=== PATIENT | male | born 1980 | race Caucasian/White ===

== ENCOUNTER 2017-07-25 16:26 | Emergency (ER) | payer MEDICAID, SELFPAY ==
[2017-07-25 16:27] VITALS: BP 140/84; PULSE 87; RESP 16; TEMP 37.2; O2SAT 99; BMI 38.6
--- NOTE | 2017-07-25 16:38 | CT_ITS ---
CT Head or Brain W/O Contrast INDICATION: HEADACHE. HX OF CEREBRAL HEMATOMA COMPARISON: June 27, 2017 TECHNIQUE: Noncontrast axial CT examination of the brain. Radiation dose optimization applied. FINDINGS: The ventricular system is normal in size and symmetric. The cortical sulci, sylvian fissures, and basal cisterns are well seen. The pantoja-white matter junction is distinct. There is no evidence of acute intracranial hemorrhage, mass effect, midline shift, or abnormal extra-axial collection. The calvarium is intact and the visualized paranasal sinuses and mastoid air cells are clear. CT/Brain/Head without Contrast IMPRESSION: No evidence of acute intracranial abnormality by noncontrast CT. at 2045 Reported and signed by: Vivienne Crouch MD Electronically Signed: Vivienne Crouch MD at 19:43 EST Tel , Service support ,
--- NOTE | 2017-07-25 16:39 | ED.VISSUMM ---
- ER Visit Summary Date of Service: 07/25/17 Chief Complaint: Headache History of Present Illness: The patient is a 37 M presenting with headache which started this morning. Headache was gradual in onset and worsened throughout the day. He tried Tylenol at home with some relief. He has a history of headaches. He states he had a subdural hematoma in 2003 which did not require surgical intervention. Since that time he has had a seizure disorder. No seizures today. Denies fever or neck pain. Denies vision changes. Denies other complaints. Physical Examination: Vitals are stable. Patient is afebrile. Alert no acute distress. HEENT exam is unremarkable. Neck is supple. No meningismus Lungs are clear and equal bilaterally. Heart is regular rate and rhythm. Abdomen is soft nontender nondistended. Extremities are unremarkable. Skin is warm and dry. No focal neurologic deficit. Remainder of exam is unremarkable. Emergency Department Course and Treatment: Patient is given Compazine, Benadryl. CT head shows no acute process. Patient states following medications his headache has completely resolved. He is advised to follow-up with his primary care physician. Advised return to ED for worsening complaints. Disposition: Discharge home Impression: Headache, resolved This note was generated with [employer] dictation software. It may contain incorrect words, spelling, and punctuation that were not noted in review of the chart prior to signing ED Disposition - Plan for ED Patient: Chief Complaint: Headache Referrals: Leydi Delong MD [Primary Care Provider] -
[2017-07-25] MEDS: DiphenhydrAMINE 50 MG/ML Syringe 25 MG IV (16:48)
[2017-07-25] MEDS: proCHLORPERazine 10 MG/2 ML Vial IV (16:48)
[2017-07-25 18:36] VITALS: BP 138/73; PULSE 51; RESP 16
--- NOTE | 2017-07-25 19:21 | ED.DEP ---
ED Disposition - Plan for ED Patient: Chief Complaint: Headache Instructions: ED Cephalgia Unspecified Referrals: Leydi Delong MD [Primary Care Provider] -
[2017-07-25 19:29] VITALS: PULSE 66; RESP 16
== END 2017-07-25 19:29 | disposition home or self-care (01) ==
PROVIDERS: Emergency Provider Emergency Medicine; Family Provider Internal Medicine; PCP Internal Medicine
DX: R51 Headache (principal); G40.909 Epilepsy, unspecified, not intractable, without status epilepticus; Z87.898 Personal history of other specified conditions; Z90.89 Acquired absence of other organs; Z79.899 Other long term (current) drug therapy; Z72.0 Tobacco use
CPT/HCPCS: 70450; 96374; 96375; 99285; A4216

== ENCOUNTER 2017-08-21 21:31 | Emergency (ER) | payer MEDICAID, SELFPAY ==
[2017-08-21 21:32] VITALS: BP 163/100; PULSE 97; RESP 20; TEMP 36.7; O2SAT 100; BMI 37.6
[2017-08-21 21:55] VITALS: BP 149/100
--- NOTE | 2017-08-21 21:55 | RAD_ITS ---
STUDY: X-RAY - LEFT ELBOW REASON FOR EXAM: Male, 37 years old. Pain TECHNIQUE: 3 view(s) of the elbow. COMPARISON: None. FINDINGS: Normal visualized humerus, radius and ulna. Normal radiocapitellar and ulnotrochlear articulations. The soft tissue structures are unremarkable. RAD/Elbow min 3 Views IMPRESSION: Normal x-ray examination of the elbow. Electronically Signed: Jeramy Rush MD at 22:12 EST Tel , Service support ,
--- NOTE | 2017-08-21 22:13 | ED.DCSUM_ITS ---
- ER Visit Summary Date of Service: 08/21/17 Chief Complaint: [] Left lateral elbow pain for 2 hours after he woke from sleep History of Present Illness: The patient is a 37 M [] sleep feeling fine he woke with pain over the left lateral elbow he is tender on exam over the left lateral epicondyle he had did not injure his extremity anyway prior to sleeping he had no symptoms. 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 but he does not believe he injured his elbow in any way he is right-hand dominant and this is left elbow Have a history of seizure disorder he did not have a seizure per patient and family Physical Examination: [] Points directly to the left lateral upper condyle complaining of pain here this area is tender to palpation he is able to flex and extend the elbow pronate and supinate hand function is normal wrist function is normal pulses are symmetric extremity hand functions normal, sensation is normal strong radial pulse, there is nothing in the brachial fossa and the left medial elbow is unremarkable the olecranon is unremarkable Test Results: [] Emergency Department Course and Treatment: [] X-rays obtained that is unremarkable per radiology, explained the above the patient I explained that there is no signs of infection fracture or anything acute or life-threatening he will need follow-up he will placed in a sling ice to the area Naprosyn is referred to Dr. Riley Davis for follow-up Treatment Plan: [] Disposition: [] Home stable Impression: [] Left lateral elbow pain etiology unclear This note was generated with [employer] dictation software. It may contain incorrect words, spelling, and punctuation that were not noted in review of the chart prior to signing ED Disposition - Plan for ED Patient: Chief Complaint: Upper Extremity Injury Instructions: ED Sprain Elbow Prescriptions: Naproxen [Naprosyn] 500 mg PO BID PRN #20 tab Referrals: Leydi Delong MD [Primary Care Provider] -
[2017-08-21] MEDS: Ketorolac 60 MG/2 ML Vial IM (23:10)
[2017-08-21 23:35] VITALS: BP 149/100; PULSE 89; RESP 16; O2SAT 97
== END 2017-08-21 23:36 | disposition home or self-care (01) ==
LOC: ED 22:13
PROVIDERS: Emergency Provider Emergency Medicine; Family Provider Internal Medicine; PCP Internal Medicine
DX: M25.522 Pain in left elbow (principal); G40.909 Epilepsy, unspecified, not intractable, without status epilepticus; Z79.899 Other long term (current) drug therapy
CPT/HCPCS: 73080; 96372; 99283

== ENCOUNTER 2017-09-02 01:01 | Emergency (ER) | payer MEDICAID, SELFPAY ==
[2017-09-02 01:03] VITALS: BP 162/90; PULSE 96; RESP 17; TEMP 36.9; O2SAT 97; BMI 40.1
[2017-09-02] MEDS: Ketorolac 30 MG/ML Syringe IV (01:44)
[2017-09-02] MEDS: 0.9% Normal Saline 1,000 ML 999 ML IV (01:44)
[2017-09-02] MEDS: proCHLORPERazine 10 MG/2 ML Vial IV (01:45)
[2017-09-02] MEDS: DiphenhydrAMINE 50 MG/ML Syringe 25 MG IV (01:46)
--- NOTE | 2017-09-02 02:48 | ED.DCSUM_ITS ---
- ER Visit Summary Date of Service: 09/02/17 Chief Complaint: Headache History of Present Illness: The patient is a 37 M who presents with a headache. It began about 2-1/2 hours ago. It gradually worsened over the course of 1 hour. He has a history of prior similar headaches. He complains of pain along his neck to the base of the skull and headache in the occipital region. He describes this as pressure-like. No history of recent fall trauma or injury. He does have a history of a prior subdural hematoma which did not require any surgical intervention. Physical Examination: Afebrile vitals are stable No focal or lateralizing neurological deficits, GCS of 15 Heart regular rate and rhythm Lungs clear Abdomen soft Alert and oriented Patient does have some tenderness at the base of the occiput Neck is supple without meningismus Test Results: Not indicated Emergency Department Course and Treatment: Patient was treated with IV fluids Toradol Compazine and Benadryl. On reevaluation he is resting comfortably and reports significant improvement of his symptoms and would like to go home. He understands return for new or worsening symptoms. He was instructed on specific signs and symptoms to monitor for. He was discharged. Treatment Plan: [] Disposition: Discharge Impression: Headache This note was generated with [employer] dictation software. It may contain incorrect words, spelling, and punctuation that were not noted in review of the chart prior to signing ED Disposition - Plan for ED Patient: Chief Complaint: Headache Referrals: Leydi Delong MD [Primary Care Provider] -
--- NOTE | 2017-09-02 02:51 | ED.DEP ---
ED Disposition - Plan for ED Patient: Chief Complaint: Headache Instructions: ED Cephalgia Unspecified Referrals: Leydi Delong MD [Primary Care Provider] -
[2017-09-02 03:15] VITALS: BP 124/53; PULSE 74; RESP 16; O2SAT 93
== END 2017-09-02 03:15 | disposition home or self-care (01) ==
PROVIDERS: Emergency Provider Emergency Medicine; Family Provider Internal Medicine; PCP Internal Medicine
DX: R51 Headache (principal); G40.909 Epilepsy, unspecified, not intractable, without status epilepticus; Z87.898 Personal history of other specified conditions; Z79.899 Other long term (current) drug therapy; Z72.0 Tobacco use
CPT/HCPCS: 96361; 96374; 96375; 99285; J7030; A4216

== ENCOUNTER 2017-12-22 21:28 | Emergency (ER) | payer SELFPAY ==
[2017-12-22 21:29] VITALS: BP 162/89; PULSE 107; RESP 20; TEMP 37.4; O2SAT 98; BMI 34.0
--- NOTE | 2017-12-22 21:41 | ED.DCSUM_ITS ---
- ER Visit Summary Date of Service: 12/22/17 Chief Complaint: Head injury History of Present Illness: The patient is a [address] Delong. He reports that he was changing brakes and the [place] came down hit him in the forehead. Did not have a loss of consciousness. He denies any neck pain. He reports that his pain was 9 out of 10 in severity. She taken ibuprofen without relief. He denies any other injuries or complaints Physical Examination: Vitals: Stable. Afebrile. Head: I do not see any evidence of trauma to his forehead where he points that the location of the trauma was. There is no soft tissue swelling. There is no contusion. Neck: No vertebral tenderness. Full ROM without difficulty. Cleared by NEXUS criteria. Back: No vertebral tenderness. General: A&O x 3. NAD. Cardiovascular exam: Regular rate and rhythm, no murmur, rub or gallop. Respiratory exam: Chest nontender. No crepitus. Clear to auscultation bilaterally. No wheezes or stridor. Abdominal exam: Soft, nontender, nondistended, normal bowel sounds. No pain in RUQ or LUQ specifically. No peritoneal signs. Extremity: Atraumatic. No pain with range of motion. Emergency Department Course and Treatment: Patient was treated with Tylenol. There is no indication for a CT scan. Treatment Plan: Instructed to follow-up with his primary care physician 1 week if not improving. Disposition: To home in improved and stable condition. Impression: 1. Closed head injury. This note was generated with [employer] dictation software. It may contain incorrect words, spelling, and punctuation that were not noted in review of the chart prior to signing ED Disposition - Plan for ED Patient: Disposition: Home or Assisted Living Chief Complaint: Head Injury Instructions: ED Concussion Referrals: Leydi Delong MD [Primary Care Provider] - 1 Week
[2017-12-22] MEDS: Acetaminophen 325 MG Tablet 1000 MG PO (21:46)
[2017-12-22 21:49] VITALS: RESP 20
--- NOTE | 2017-12-22 21:59 | NURSING ---
CUT ONE OF TABLETS TO THE CORRECT DOSAGE. PT GOT WORK NOTE. UNDERSTANDS D/C INSTRUCTIONS. NO FURTHER QUESTIONS.
== END 2017-12-22 22:00 | disposition home or self-care (01) ==
LOC: ED 21:56
PROVIDERS: Emergency Provider Emergency Medicine; Family Provider Internal Medicine; PCP Internal Medicine
DX: S09.90XA Unspecified injury of head, initial encounter (principal); W22.8XXA Striking against or struck by other objects, initial encounter; Y93.89 Activity, other specified; Y92.9 Unspecified place or not applicable; G40.909 Epilepsy, unspecified, not intractable, without status epilepticus; Z72.0 Tobacco use
CPT/HCPCS: 99282

== ENCOUNTER 2018-03-02 01:41 | Emergency (ER) | payer SELFPAY ==
[2018-03-02 01:43] VITALS: BP 136/88; BP 149/91; PULSE 93; PULSE 94; RESP 17; RESP 18; TEMP 36.5; O2SAT 97; O2SAT 98; BMI 41.5
--- NOTE | 2018-03-02 01:55 | CT_ITS ---
STUDY: CT BRAIN WITHOUT CONTRAST REASON FOR EXAM: Male, 38 years old. Seizure RADIATION DOSAGE (If Supplied By Facility): CTDIvol = ( 44.99 ) mGy, DLP = ( 762.36 ) mGycm TECHNIQUE: Transaxial CT imaging of the brain was performed without administration of intravenous contrast material. Individualized dose optimization techniques were used for this CT. COMPARISON: None. FINDINGS: Normal soft tissue structures. Normal calvarium. Normal size ventricles and extra-axial spaces for the patient's age. Normal white matter tracts of the cerebral hemispheres. Normal basal ganglia and thalami. Normal brainstem. Normal cerebellum. There is no intracranial hemorrhage. There are no findings of an acute ischemic infarction. Normal visualized paranasal sinuses. CT/Brain/Head without Contrast IMPRESSION: Normal unenhanced CT scan of the brain. No acute findings in the brain Electronically Signed: Lopez Trujillo, at 2:36 EDT Tel , Service support ,
[2018-03-02 02:43] LABS: Carbamazepine (Tegretol) 12.7 ug/mL (4.0-12.0)
--- NOTE | 2018-03-02 02:45 | ED.RN ---
lab called to report carbamazepine 12.7. dr. agustin made aware.
--- NOTE | 2018-03-02 02:54 | ED.DCSUM_ITS ---
- ER Visit Summary Date of Service: 03/02/18 Chief Complaint: Seizure History of Present Illness: The patient is a 38 M with history of epilepsy. Patient reported had a seizure around 11 PM tonight. Family states it only lasted a short time, but then he did not breathe for 2 minutes. When asked specifically if he became cyanotic or ashen in color, they deny. Patient was complaining of posterior head pains they brought him in for evaluation. Patient is currently on Tegretol and Neurontin. His neurologist is at [facility]. Patient denies biting his tongue. Physical Examination: Vital signs unremarkable. Patient's lying in bed in no acute distress. Head neck examination unremarkable. Heart is regular rate and rhythm. Lung sounds are clear. Abdomen is soft nontender. Neuro exam reveals no focal deficits. Test Results: CT head is unremarkable. Tegretol level returns just above normal range at 12.7. Emergency Department Course and Treatment: On repeat evaluation patient is resting comfortably. He will call his neurologist tomorrow with an update. Treatment Plan: [] Disposition: Discharge Impression: Reported seizure with history of epilepsy This note was generated with [employer] dictation software. It may contain incorrect words, spelling, and punctuation that were not noted in review of the chart prior to signing ED Disposition - Plan for ED Patient: Disposition: Home or Assisted Living Chief Complaint: Seizure Instructions: ED Seizure Recurrent Referrals: Leydi Delong MD [Primary Care Provider] - Additional Instructions: Call your neurologist at [facility] tomorrow about your seizure. Your Tegretol level is 12.7
[2018-03-02 03:04] VITALS: BP 150/98; PULSE 88; RESP 16; O2SAT 97
--- NOTE | 2018-03-02 09:43 | CM.ED ---
Social Work Note Referral from Dr. Paz regarding questions about establishing advanced directives. States that pt's girlfriend, Hilda, was inquiring. Placed call to Hilda and left a requesting a return phone call to to discuss further and offer to assist in completion of advanced directives with pt and significant other if pt is agreeable. Deborah Bradford, CLIENT SOLUTIONS MANAGER, WAGE ADJUSTER
== END 2018-03-02 03:05 | disposition home or self-care (01) ==
PROVIDERS: Emergency Provider Emergency Medicine; Family Provider Internal Medicine; PCP Internal Medicine
DX: G40.909 Epilepsy, unspecified, not intractable, without status epilepticus (principal); Z79.899 Other long term (current) drug therapy; Z72.0 Tobacco use
CPT/HCPCS: 70450; 80156; 99284

== ENCOUNTER → 2018-04-01 08:41 | Outpatient (CLI) | payer OTHER, SELFPAY ==
--- NOTE | 2018-04-01 08:45 | RAD_ITS ---
STUDY: X-RAY - LEFT FOOT CLINICAL: Male, 38 years old. Fall at work yesterday. Pain. TECHNIQUE: 2 view(s) of the foot. COMPARISON: Left ankle, April 01, 2018. FINDINGS: Normal talus, calcaneus, and tarsal bones. Normal visualized subtalar, talonavicular, calcaneocuboid, tarsal and tarsometatarsal articulations. Normal metatarsi. Normal metatarsophalangeal joint of the great toe. Normal tibial and fibular sesamoid bones. Normal interphalangeal joint of the great toe. Normal phalanges of the great toe. Normal second through fifth metatarsophalangeal joints. Normal interphalangeal joints and phalanges of the lesser toes. The soft tissue structures are unremarkable. RAD/Foot 2 Views IMPRESSION: Normal x-ray examination of the foot. Electronically Signed: Heath Mariscal DO at 22:07 EDT Tel [phone], Service support ,
--- NOTE | 2018-04-01 08:45 | RAD_ITS ---
STUDY: X-RAY - LEFT ANKLE REASON FOR EXAM: Male, 38 years old. The work yesterday. TECHNIQUE: view(s) of the ankle. COMPARISON: None. FINDINGS: Normal visualized distal tibia and fibula. Normal medial and lateral malleoli. Normal tibiotalar articulation and ankle mortise. Normal visualized talus and calcaneus. The visualized subtalar, talonavicular, calcaneocuboid and tarsal articulations are normal. The soft tissue structures are unremarkable. RAD/Ankle min 3 Views IMPRESSION: Normal x-ray examination of the ankle. Electronically Signed: Heath Mariscal DO at 22:06 EDT Tel [phone], Service support ,
--- NOTE | 2018-04-01 08:45 | RAD_ITS ---
STUDY: X-RAY - LEFT KNEE REASON FOR EXAM: Male, 38 years old. Without work yesterday. Pain. TECHNIQUE: 3 view(s) of the knee. COMPARISON: None. FINDINGS: Normal visualized distal femur. Normal visualized proximal tibia and fibula. Normal proximal tibiofibular articulation. There is no acute fracture, dislocation or destructive osseous pathology. Normal medial femorotibial compartment. Normal lateral femorotibial compartment. Normal patellofemoral articulation. There is no demonstrated joint effusion. The soft tissue structures are unremarkable. RAD/Knee 3 Views IMPRESSION: Normal x-ray examination of the knee. Electronically Signed: Heath Mariscal DO at 22:06 EDT Tel [phone], Service support ,
== END ==
PROVIDERS: Family Provider Internal Medicine; PCP Internal Medicine; Referring Provider Physician Assistant; Visit Provider Physician Assistant
DX: S80.02XA Contusion of left knee, initial encounter (principal); S93.402A Sprain of unspecified ligament of left ankle, initial encounter; S93.602A Unspecified sprain of left foot, initial encounter
CPT/HCPCS: 73562; 73610; 73620

== ENCOUNTER → 2018-04-17 12:58 | Outpatient (CLI) | payer OTHER, SELFPAY ==
--- NOTE | 2018-04-17 13:45 | MRI_ITS ---
STUDY: MRI LEFT KNEE REASON FOR EXAM: Male, 38 years old. Left knee pain status post injury. TECHNIQUE: Standardized fat and water weighted pulse sequences were obtained in all 3 orthogonal planes. COMPARISON: Knee x-rays April 01, 2018. FINDINGS: Normal medial meniscus. There is mild thinning of articular cartilage of the medial femorotibial compartment (coronal series 6 images 13-18). Normal medial femoral condyle and tibial plateau. Normal medial collateral ligamentous complex (MCL). Normal distal semimembranosus, gracilis and semitendinosus tendons. Normal lateral meniscus. There is mild thinning of the articular cartilage of the lateral femorotibial compartment (coronal series 6 images 10-19). Normal lateral femoral condyle and tibial plateau. Normal proximal tibiofibular articulation. Normal lateral collateral (fibular) ligament. Normal popliteus tendon. Normal biceps femoris tendon. Normal anterior cruciate ligament (ACL). Normal posterior cruciate ligament (PCL). There is lateral subluxation of the patella with moderate thinning of the articular cartilage of the patellofemoral compartment with fissuring of the articular cartilage of the lateral patellar facet (axial series 2 images 3-9). Normal medial and lateral patellar retinaculum. Normal quadriceps tendon. Normal patellar tendon. Normal Hoffa's fat pad. There is a small joint effusion (axial series 2 image 6). The soft tissues are unremarkable. The otherwise visualized osseous structures are unremarkable. MRI/Lower Ext Joint Only (Routine) IMPRESSION: Mild thinning of the articular cartilage of the medial and lateral femorotibial compartments. Lateral subluxation of the patella with moderate thinning of the articular cartilage of the patellofemoral compartment. Fissuring of the articular cartilage of the lateral patellar facet. Small joint effusion. No meniscal or ligamentous pathology is present. Electronically Signed: Yaniv Aranda MD at 12:34 EST , Service support ,
== END ==
PROVIDERS: Family Provider Internal Medicine; PCP Internal Medicine; Referring Provider Physician Assistant; Visit Provider Physician Assistant
DX: S80.02XA Contusion of left knee, initial encounter (principal); S86.912A Strain of unspecified muscle(s) and tendon(s) at lower leg level, left leg, initial encounter; S93.402A Sprain of unspecified ligament of left ankle, initial encounter; S93.602A Unspecified sprain of left foot, initial encounter
CPT/HCPCS: 73721

== ENCOUNTER 2018-08-23 16:37 | Emergency (ER) | payer MEDICAID, SELFPAY ==
[2018-08-23 16:38] VITALS: BP 157/92; PULSE 93; RESP 18; TEMP 36.9; O2SAT 98; BMI 37.5
--- NOTE | 2018-08-23 17:19 | RAD_ITS ---
STUDY: X-RAY - LUMBAR SPINE REASON FOR EXAM: Male, 38 years old. Back pain, fall TECHNIQUE: AP and lateral view(s) of the lumbar spine were obtained. COMPARISON: None FINDINGS: There are multilevel osteophytes most significant within the lower thoracic spine. Evaluation of the lower thoracic spine is limited. There are no fractures of the lumbar spine. There is mild sclerosis of the facets.. The soft tissue structures are unremarkable. RAD/Lumbar Spine 2 or 3 Views IMPRESSION: Multilevel spondylosis No acute fractures, evaluation of the lower thoracic spine is limited Electronically Signed: Ke Russell, at 18:21 EDT Tel , Service support ,
[2018-08-23] MEDS: HYDROmorphone 0.5 MG/0.5 ML SYRINGE IV (17:37)
[2018-08-23] MEDS: Ondansetron 4 MG/2 ML Vial IV (17:37)
[2018-08-23] MEDS: Ketorolac 15 MG/ML Vial IV (17:38)
--- NOTE | 2018-08-23 18:24 | ED.VISSUMM ---
- ER Visit Summary Date of Service: 08/23/18 Chief Complaint: Patient presents with low back pain secondary to trauma History of Present Illness: The patient is a 38 M who was carrying a washer with assistance down the basement steps. He was walking backwards. His administrative services assistant lost control. He fell backwards onto his back. The washer landed on him. He denies head trauma. He denies loss of conscious. He denies neck pain. He denies paresthesia, anesthesia motors present at time of the injury. Injury occurred approximate 1 hour ago. He denies difficulty breathing or shortness of breath. He denies chest pain. He denies abdominal pain. He has urinated since incident and states urine was normal in color. He is on no anticoagulant. He denies saddle paresthesia or anesthesia. He denies bowel bladder dysfunction. He denies radicular pain. He denies foot drop. He was able to walk up steps with no quadricep weakness. Physical Examination: Vital signs noted. BMI is 37.6. Head is atraumatic normocephalic. There are no clinical findings of basal skull fracture pupils are equal round reactive. Extraocular muscles are intact. TMs are pearly white with landmarks noted. Nares patent with no drainage. Posterior pharynx without erythema or exudate. Uvula is midline. There is no dysphonia or dysphasia. Trachea is midline. There is no stridor with auscultation of the neck. Cervical spine was cleared per Nexus criteria. Heart is regular without murmur, gallop or rub. S1 and S2 are normal. Lungs are clear to auscultation with good movement of air bilaterally. Abdomen is soft nontender with normal bowel sounds. There is no evidence of trauma to the chest or abdomen. There is no pain the patient the pelvis. GCS is 15. Patient is alert and oriented ?3. Motor is 5/5. Sensation is intact. DTRs are symmetric without clonus or Babinski. Cranial nerves II through XII are intact. Finger to nose to finger was performed adequately. There is pain palpation over the spinous processes of L2, L3, L4 and L5. He has normal perianal sensation. Patella and ankle reflex are 1+. EHL is intact. Straight leg test is negative. Test Results: Three-view x-ray of the LS spine was interpreted by me as negative. Emergency Department Course and Treatment: Patient was medicated with 4 mg Zofran, 50 mg of Toradol and 0.5 mg of Dilaudid IV push. Treatment Plan: Rest, ice and anti-inflammatory Disposition: Discharged home in stable condition Impression: Lumbar contusion secondary to fall initial encounter This note was generated with [employer] dictation software. It may contain incorrect words, spelling, and punctuation that were not noted in review of the chart prior to signing ED Disposition - Plan for ED Patient: Disposition: Home or Assisted Living Instructions: ED Contusion Back Prescriptions: Ibuprofen [Ibu] 800 mg PO Q8 #14 tablet Referrals: Leydi Delong MD [Primary Care Provider] - 1 Week if not improving Additional Instructions: Your [facility]. You may feel worse over the next 24-48 hours. You may hurt in more places then you presently do. You may hurt for several days.
--- NOTE | 2018-08-23 18:29 | ED.DCSUM_ITS ---
- ER Visit Summary Date of Service: 08/23/18 Chief Complaint: Patient presents with low back pain secondary to trauma History of Present Illness: The patient is a 38 M who was carrying a washer with assistance down the basement steps. He was walking backwards. 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 He fell backwards onto his back. The washer landed on him. He denies head trauma. He denies loss of conscious. He denies neck pain. He denies paresthesia, anesthesia motors present at time of the injury. Injury occurred approximate 1 hour ago. He denies difficulty breathing or shortness of breath. He denies chest pain. He denies abdominal pain. He has urinated since incident and states urine was normal in color. He is on no anticoagulant. He denies saddle paresthesia or anesthesia. He denies bowel bladder dysfunction. He denies radicular pain. He denies foot drop. He was able to walk up steps with no quadricep weakness. Physical Examination: Vital signs noted. BMI is 37.6. Head is atraumatic normocephalic. There are no clinical findings of basal skull fracture pupils are equal round reactive. Extraocular muscles are intact. TMs are pearly white with landmarks noted. Nares patent with no drainage. Posterior pharynx without erythema or exudate. Uvula is midline. There is no dysphonia or dysphasia. Trachea is midline. There is no stridor with auscultation of the neck. Cervical spine was cleared per Nexus criteria. Heart is regular without murmur, gallop or rub. S1 and S2 are normal. Lungs are clear to auscultation with good movement of air bilaterally. Abdomen is soft nontender with normal bowel sounds. There is no evidence of trauma to the chest or abdomen. There is no pain the patient the pelvis. GCS is 15. Patient is alert and oriented ?3. Motor is 5/5. Sensation is intact. DTRs are symmetric without clonus or Babinski. Cranial nerves II through XII are intact. Finger to nose to finger was performed adequately. There is pain palpation over the spinous processes of L2, L3, L4 and L5. He has normal perianal sensation. Patella and ankle reflex are 1+. EHL is intact. Straight leg test is negative. Test Results: Three-view x-ray of the LS spine was interpreted by me as negative. Emergency Department Course and Treatment: Patient was medicated with 4 mg Zofran, 50 mg of Toradol and 0.5 mg of Dilaudid IV push. Treatment Plan: Rest, ice and anti-inflammatory Disposition: Discharged home in stable condition Impression: Lumbar contusion secondary to fall initial encounter This note was generated with [employer] dictation software. It may contain incorrect words, spelling, and punctuation that were not noted in review of the chart prior to signing ED Disposition - Plan for ED Patient: Disposition: Home or Assisted Living Instructions: ED Contusion Back Prescriptions: Ibuprofen [Ibu] 800 mg PO Q8 #14 tablet Referrals: Leydi Delong MD [Primary Care Provider] - 1 Week if not improving Additional Instructions: Your prescription was electronically transmitted to [facility]. You may feel worse over the next 24-48 hours. You may hurt in more places then you presently do. You may hurt for several days.
[2018-08-23 18:30] VITALS: BP 137/87; PULSE 90; RESP 15; O2SAT 98
[2018-08-23 18:31] VITALS: PULSE 90; RESP 15
== END 2018-08-23 18:45 | disposition home or self-care (01) ==
PROVIDERS: Emergency Provider Emergency Medicine; Family Provider Internal Medicine; PCP Internal Medicine
DX: S30.0XXA Contusion of lower back and pelvis, initial encounter (principal); W10.9XXA Fall (on) (from) unspecified stairs and steps, initial encounter; Y93.9 Activity, unspecified; Y92.9 Unspecified place or not applicable; Y99.9 Unspecified external cause status; E66.9 Obesity, unspecified; Z68.37 Body mass index [BMI] 37.0-37.9, adult; Z72.0 Tobacco use; Z79.899 Other long term (current) drug therapy
CPT/HCPCS: 72100; 96374; 96375; 99283; A4216; J2405

== ENCOUNTER 2018-09-19 20:43 | Emergency (ER) | payer MEDICAID, SELFPAY ==
[2018-09-19 20:45] VITALS: BP 142/87; PULSE 114; RESP 18; TEMP 36.9; BMI 42.6
--- NOTE | 2018-09-19 21:12 | CT_ITS ---
STUDY: CT ABDOMEN AND PELVIS WITH CONTRAST REASON FOR EXAM: Male, 38 years old. Umbilical pain and bulging after clearing tree stumps today. Patient has elevated white count. Patient has had an appendectomy. RADIATION DOSAGE (If Supplied By Facility): CTDIvol = ( 20.40 ) mGy, DLP = ( 1364.47 ) mGycm TECHNIQUE: Transaxial images were obtained from the dome of the diaphragm to the symphysis pubis without oral contrast. 100 ml IV Isovue 300 was administered. Sagittal and coronal images were reconstructed. Individualized dose optimization techniques were used for this CT. COMPARISON: Prior comparable comparison studies are not available for review at this time. FINDINGS: The visualized lung bases are unremarkable. The visualized portions of the heart are within normal limits. Normal liver. Normal gallbladder and extrahepatic biliary system. Normal spleen. Normal pancreas. Normal bilateral adrenal glands. Normal right kidney. Small lucencies are visible in left kidney possibly representing small cysts. There is no evidence for hydronephrosis, hydroureter or radiopaque ureteral calculi. Normal visualized stomach. There is no evidence for dilated bowel, ascites or pneumoperitoneum. Small bowel has a grossly normal appearance. Stool is visible throughout the colon with scattered colonic diverticula. There are surgical clips in the region of the appendix consistent with a prior appendectomy. There is minimal atherosclerotic calcification of the abdominal aorta, without a demonstrated aneurysm. Normal inferior vena cava. Normal retroperitoneum. Normal urinary bladder. Normal visualized prostate gland. There is a moderately large periumbilical hernia containing fat. Normal osseous structures. CT/Abdomen/Pelvis W IV Cont ONLY IMPRESSION: 1. Moderately large periumbilical hernia containing fat. No obvious acute inflammation is identified. 2. Colonic diverticulosis without evidence for diverticulitis. Electronically Signed: Bozena Thomason MD at 22:59 EDT , Service support ,
[2018-09-19] MEDS: HYDROmorphone 1 MG/ML Syringe 0.5 MG IV (21:26)
[2018-09-19] MEDS: 0.9% Normal Saline 1,000 ML 1000 ML IV (21:26)
[2018-09-19 21:38] LABS: Absolute Lymphocyte Count 3.06 X10^3/ul (0.83-4.51); Absolute Neutrophil Count 8.3 X10^3/uL (2.0-7.7); Basophil# 0.06 X10^3/uL; Basophil% 0.5 % (0-1); Eosinophil# 0.15 X10^3/uL; Eosinophils% 1.2 % (0-5); Hematocrit 45.1 % (40-54); Hemoglobin 15.6 g/dl (13.0-16.5); Lymphocyte # 3.06 X10^3/ul (4.0); Mean Corp Hgb Conc 34.6 g/gl (32-36); Mean Corpuscular Hgb 31.6 pg (27.0-32.0); Mean Corpuscular Volume 91.3 fL (80-94); Mean Platelet Vol. 9.1 fl (6.2-12.0); Monocyte% 5.7 % (0-10); Neutrophil # 8.26 X10^3/uL (2.7-7.7); Neutrophil % 67.4 % (47-70); POSITIVE COUNT NO; POSITIVE DIFFERENTIAL NO; POSITIVE MORPHOLOGY NO; Platelet Count 296 K/mm3 (150-450); RBC Distribution Width CV 12.8 % (11.6-14.6); RBC Distribution Width SD 42.7 fl (35.1-43.9); Red Blood Count 4.94 M/mm3 (4.6-6.2); White Blood Count 12.3 K/mm3 (4.4-11.0)
[2018-09-19 22:34] LABS: ALB/GLOB Ratio 0.9 RATIO (0.9-2.4); AST(SGOT) 31 U/L (15-37); Alanine Aminotransfer ALT/SGPT 24 U/L (16-61); Alkaline Phosphatase 38 U/L (45-117); Anion Gap 5 (5-15); BUN 8 mg/dL (7-18); BUN/Creat Ratio 10.5 RATIO (10-20); Calcium,Total 7.4 mg/dL (8.5-10.1); Chloride 106 mmol/L (98-107); Creatinine, Serum 0.76 mg/dL (0.70-1.30); EST Glomerular Filtration Rate 121 mL/min (>60); Est Glom Filt Rate - Afr Amer 146 mL/min (>60); Estimated Creatinine Clearance 147.48 ml/min; Globulin 3.2 g/dL (2.2-4.2); Glucose 87 mg/dL (74-106); Potassium 4.1 mmol/L (3.5-5.1); Protein, Total 6.2 g/dL (6.4-8.2); Sodium Level 136 mmol/L (136-145)
[2018-09-19] MEDS: Acetaminophen 500 MG Tablet 1000 MG PO (23:17)
--- NOTE | 2018-09-19 23:37 | ED.VISSUMM ---
- ER Visit Summary Date of Service: 09/19/18 Chief Complaint: Hernia History of Present Illness: The patient is a 38 M with an umbilical hernia. He complains of pain to the area. He was lifting heavy objects today. He said his pain got worse. Denies nausea or vomiting. Denies urinary symptoms. Denies fever. Physical Examination: Afebrile and vital signs unremarkable. Alert and oriented. No acute distress. Heart tachycardic but regular. Lungs clear. Abdomen tender in the umbilical region. There is a small umbilical hernia. Test Results: Labs unremarkable. CT showed a hernia containing fat with no other complications. He has diverticulosis without diverticulitis. Emergency Department Course and Treatment: Patient treated with pain medicine and fluids while awaiting results. His workup did show a hernia, but it contains fat. There is no indication for admission, surgery emergently, or any other therapy. He will follow-up as an outpatient. Return for any new issues. Treatment Plan: As above Disposition: Discharge Impression: 1. Umbilical hernia This note was generated with [employer] dictation software. It may contain incorrect words, spelling, and punctuation that were not noted in review of the chart prior to signing ED Disposition - Plan for ED Patient: Referrals: Leydi Delong MD [Primary Care Provider] -
--- NOTE | 2018-09-19 23:39 | ED.DEP ---
ED Disposition - Plan for ED Patient: Instructions: What Is a Hernia? Referrals: Maria Isabel Cazares MD [STAFF PHYSICIAN] -
[2018-09-19 23:49] VITALS: BP 157/89; PULSE 96; RESP 18; O2SAT 100
== END 2018-09-19 23:50 | disposition home or self-care (01) ==
PROVIDERS: Emergency Provider Emergency Medicine; Family Provider Internal Medicine; PCP Internal Medicine
DX: K42.9 Umbilical hernia without obstruction or gangrene (principal); K57.90 Diverticulosis of intestine, part unspecified, without perforation or abscess without bleeding
CPT/HCPCS: 74177; 80053; 85025; 96361; 96374; 99283; J7030; Q9967

== ENCOUNTER 2018-09-20 19:59 | Emergency (ER) | payer MEDICAID, SELFPAY ==
[2018-09-19 20:45] VITALS: BMI 42.6
[2018-09-20 20:00] VITALS: BP 170/102; PULSE 118; RESP 18; TEMP 36.9; O2SAT 98; BMI 42.1
== END 2018-09-20 23:00 | disposition left against medical advice (07) ==
PROVIDERS: Emergency Provider Emergency Medicine; Family Provider Internal Medicine; PCP Internal Medicine
DX: R69 Illness, unspecified (principal); Z53.21 Procedure and treatment not carried out due to patient leaving prior to being seen by health care provider
CPT/HCPCS: 99281

== ENCOUNTER 2018-09-25 07:57 | Day surgery (SDC) | payer MEDICAID, SELFPAY ==
[2018-09-22 08:19] VITALS: BMI 42.1
--- NOTE | 2018-09-22 08:48 | HP_ITS ---
Intake Vital Signs 09/22/18 Body Mass Index (BMI) 42.1 09/22/18 Height 6 ft 1 in 09/22/18 Weight: 326 lb 09/22/18 Body Mass Index (BMI) 43.0 09/22/18 Blood Pressure 130/91 H 09/22/18 Blood Pressure Location Rt brachial 09/22/18 Blood Pressure Position Sitting 09/22/18 Respiratory Rate 20 H 09/22/18 Pulse Rate 81 09/22/18 Pulse Source Monitor 09/22/18 Temperature 98.3 F 09/22/18 Temperature Source Oral 09/22/18 Pulse Ox 98 09/22/18 Oxygen Delivery Method room air Intake Visit Reasons: FU ER CONSULT HERNIA Chief Complaint: Recheck left lower extremity injuries Melt Supervisor Required: No Is patient in pain?: Yes Allergies cephalexin monohydrate [From Keflex] Allergy (Verified 09/22/18 08:17) Anaphylaxis levetiracetam [From Keppra] Allergy (Verified 09/22/18 08:17) Hives morphine Allergy (Verified 09/22/18 08:17) Shortness of breath naproxen [From Naprosyn] Allergy (Verified 09/22/18 08:17) Hives PAPER TAPE Allergy (Uncoded 08/23/18 17:22) Hives Medications Gabapentin [Neurontin] 300 mg PO TID 10/27/16 [History Confirmed 09/22/18] carbamazepine 200 mg tablet 600 mg PO BID tab 04/01/18 [History Confirmed 09/22/18] oxycodone-acetaminophen 5 mg-325 mg tablet 1 tab PO Q4H PRN 09/22/18 [History Confirmed 09/22/18] PFSH Medical History Knee pain (Acute) Seizures (Acute) Surgical History History of appendectomy (Acute) Family History Grandmother Arthritis Mother Arthritis Seizures Father Colon cancer Diabetes Brother Heart disease Social History Smoking Status: Current every day smoker alcohol intake: never HPI HPI HPI: PATRICK KOROMA, is a 38 M who presents to the office today for HPI HPI Surgical H&P: Yes HPI: PATRICK KOROMA, is a 38 M who presents to the office today for hernia near his [facility]. Patient states he was helping his son lift a log after cutting wood on Friday and he had pain at the umbilicus. Patient did go the ER at [place] abdomen pelvis done which did show a fat-containing hernia at the umbilicus. Patient also went to the ER on Friday however left before seen as per the patient's the ER was quite busy that day. Yesterday patient did go to [facility] and got Percocet. Patient states that the pain is a 10/10 at night when he is trying to sleep. Currently states it is a 7/10. Patient denies any nausea, vomiting, fever, chills. Patient is tolerating a diet and having flatus as well as bowel movements denies any blood. Medical history does include a laparoscopic appendectomy in 2000 which he did have a supraumbilical incision. ROS General General: No weight change, appetite, fatigue, colon cancer, breast cancer or weakness HEENT HEENT: No difficulty swallowing, eye injury, eye surgery, swollen glands or hoarseness Endo Endocrine: No thyroid disease, diabetes mellitus, thyroid cancer, Hair loss, heat intolerance or cold intolerance Skin Skin: No rash or changing moles Breast Breast: No left breast lump, right breast lump, nipple discharge, breast pain, abnormal mammogram, abnormal US or breast enlargement Musc Musculoskeletal: No back problems, arthritis, rheumatoid arthritis, gout or joint pain Cardio Cardiovascular: No murmur, pacemaker, heart disease, atrial fibrillation, high blood pressure, heart attack, heart stent, palpitations, shortness of breat with exertion or chest pain Psych Psychiatric: No depression, anxiety or hearing voices Resp Respiratory: No shortness of breath, No sleep apnea, No cough, No COPD, No asthma, No emphysema, No wheezing Gastro Gastrointestinal: Yes abdominal pain, No nausea or vomiting, No diarrhea, No constipation, No blood in stool, No acid reflux, No hemorrhoids, No ulcers, No gallbladder problem, No black,tarry stools Jason Hematologic: No blood thinners, No blood disorders, No bleeding, No anemia, No blood clots Neuro Neurologic: No system reviewed and no additional complaints, except as docu, No as per HPI, No abnormal walking, No abnormal hearing, No abnormal movements, No abnormal speech, No behavioral changes, No burning sensations, No confusion, No seizure-like activity, No unsteadiness, No dizziness, No localized weakness, No frequent falls, No headache(s), No lack of coordination, No loss of vision, No memory loss, No numbness, No other visual disturbances, No radiating pain, No restless legs, No sensory deficit, No fainting, No tingling, No tremor(s), No weakness, No other Exam Const General: cooperative, comfortable, no acute distress Chest Breast Palpation: No nipple discharge Resp Effort & Inspection: normal respiratory effort Cardio Rate: regular rate Heart Sounds: no murmurs GI Inspection: non-distended, obesity, scar (well healed incision from lap appy) Palpation: soft Other: Has a hernia at the superior/right of his umbilicus-about 1 cm, reducible; however comes back out upon sitting or any movement. Assessment & Plan Problems 1. Incisional hernia of anterior abdominal wall without obstruction or gangrene K43.2 Plan Plan to do an incisional hernia repair with possible mesh. Reviewed the procedure with the patient including the risks, including but not limited to infection-if mesh was infected would need removed, bleeding, injury to the small bowel, and recurrence. All questions were answered. Also, discussed risk of strangulated bowel. Cautioned the patient that if he has N/V, ABD distention, increased umbilical pain or changes of the skin over the hernia he needs to go to the ER. Maria Isabel Cazares M.D. Pager: [phone] [facility] [address] [place] [address], [address] [place] [address] Office: [phone] Plan Detail Follow Up We will schedule incisional hernia repair with possible mesh Coding Level of Care Code Off vis,new,level 3 Diagnoses Incisional hernia of anterior abdominal wall without obstruction or gangrene K43.2 ADDENDUM: 09/25/18 8:19 AM Patient seen and examined. No changes noted.
--- NOTE | 2018-09-23 12:05 | EKG12_ITS ---
Test Reason : PRE OP Blood Pressure : / mmHG Vent. Rate : 086 BPM Atrial Rate : 086 BPM P-R Int : 140 ms QRS Dur : 096 ms QT Int : 364 ms P-R-T Axes : 036 073 009 degrees QTc Int : 435 ms Normal sinus rhythm Normal ECG Confirmed by SASHA JEONG, ALLISON ([id number]), editor newspaper KIN [place]NON ([id number]) on 09/28/2018 3:48:49 PM Referred By: Maria Isabel Cazares Confirmed By:ALLISON BAEZ MD
[2018-09-23 12:42] LABS: Partial Thromboplast Time 28.2 Seconds (24.1-36.2)
[2018-09-25 08:17] VITALS: BP 136/79; PULSE 78; RESP 18; TEMP 37.7; O2SAT 95; BMI 42.9
--- NOTE | 2018-09-25 09:30 | HERN_PTH ---
PATIENT: PATRICK KOROMA [place] [facility] [place] U#:[id number] AGE/SX: 38/M ROOM: RE09/25/[address]: Dr. Maria Isabel Cazares MD : 1980 BED: DIS: 09/25/2018 SPEC #: [id number] RECD: 09/25/18 12:13 STATUS: PORFIRIO CHAY #: [id number] SCARLETT: 09/25/18 09:[address]: Maria Isabel Cazares DEPT: SURGICAL PATHOLOGY RECD BY: Michael Resendez ENTERED: 09/25/18 12:39 SP TYPE: Hernia OTHR DR: Dr. Leydi Delong MD Tissues: HERNIA Procedures: Surgery Specimen Level II HEADER OPERATION: Open umbilical incisional hernia repair with mesh PRE-OP DIAGNOSIS: Incisional hernia of anterior abdominal wall without obstruction or gangrene TISSUE SUBMITTED: Hernia sac MICROSCOPIC DIAGNOSIS Soft tissue, umbilical region, excision: Hernia with mild fibrosis and focal chronic inflammation. AM:katelin 09/28/18 MICROSCOPIC DESCRIPTION Slides are reviewed. GROSS DESCRIPTION Received in fixative is one container labeled with the patient's name and designated hernia sac. The specimen consists of two variable sized pieces of esquivel-pink soft tissue measuring in aggregate 3.5 x 1.5 x 0.5 cm. No mass lesion is identified. Operator Specialist Communications sections are submitted in one cassette. / SJ:katelin 09/25/18 TC:5 CPT: 73054
--- NOTE | 2018-09-25 10:47 | PCM.OPRPT ---
Report of Operation Date of Procedure: 09/25/18 Pre-Operative Diagnosis: Incisional hernia Post-Operative Diagnosis: Same Surgery/Procedure Performed:: Open incisional hernia repair with mesh travel ticketing reviewer: Lali Reyes Type of Anesthesia:: General/Supplemental Anesthesiologist: Herber Wheatley Special Medications: Clindamycin 900 mg IV x1 Specimen's removed: Hernia sac Estimated Blood Loss (mL): <10 cc Fluids Replaced: 900 cc Description of Procedure: Patient was brought into the room placed supine on the operating table. Correct patient, procedure, site, positioning, special, was verified prior to procedure. General anesthesia was induced. The abdomen was prepped draped in usual sterile fashion. A curvilinear incision was made below the umbilicus with a 15 blade scalpel. This was deepened with electrocautery. A hemostat was used to go around the stalk of the umbilicus and Metzenbaum scissors was used to carefully divide the hernia sac from the skin of the umbilicus. The fascia around the hernia defect was cleared and the hernia defect measured 13mm x 13mm. The Ventralex ST small hernia patch was used and placed through the defect, was laying flat against the fascia. The mesh was was secured to the fascia using 0 Nurolon sutures on the tails as well as superior and inferior to the mesh and the defect was closed with a [id number] 0 Nurolon suture. The wound was irrigated with saline. Hemostasis was assured. The skin of the umbilicus was secured to the fascia using 3-0 Vicryl sutures interrupted ?2. The incision was closed with 3-0 Vicryl subdermal interrupted sutures and the skin was closed with interrupted 4-0 Monocryl sutures. Steri-Strips and Tegaderm and OpSite were placed over the incision once sterile cotton balls were placed in the umbilicus. Patient was extubated. Patient tolerated procedure well and was taken to the postanesthesia care unit in stable condition. Grafts/Implants Used: Ventralex ST hernia patch LOT [id number], - Complications none
[2018-09-25] MEDS: Bupiv/Epi 0.5% Mpf 30 ML Vial (10:48)
--- NOTE | 2018-09-25 10:51 | OP.PCM_ITS ---
Report of Operation Date of Procedure: 09/25/18 Pre-Operative Diagnosis: Incisional hernia Post-Operative Diagnosis: Same Surgery/Procedure Performed:: Open incisional hernia repair with mesh quality assurance representative: Lali Reyes Type of Anesthesia:: General/Supplemental Anesthesiologist: Herber Wheatley Special Medications: Clindamycin 900 mg IV x1 Specimen's removed: Hernia sac Estimated Blood Loss (mL): <10 cc Fluids Replaced: 900 cc Description of Procedure: Patient was brought into the room placed supine on the operating table. Correct patient, procedure, site, positioning, special, was verified prior to procedure. General anesthesia was induced. The abdomen was prepped draped in usual sterile fashion. A curvilinear incision was made below the umbilicus with a 15 blade scalpel. This was deepened with electrocautery. A hemostat was used to go around the stalk of the umbilicus and Metzenbaum scissors was used to carefully divide the hernia sac from the skin of the umbilicus. The fascia around the hernia defect was cleared and the hernia defect measured 13mm x 13mm. The Ventralex ST small hernia patch was used and placed through the defect, was laying flat against the fascia. The mesh was was secured to the fascia using 0 Nurolon sutures on the tails as well as superior and inferior to the mesh and the defect was closed with a [id number] 0 Nurolon suture. The wound was irrigated with saline. Hemostasis was assured. The skin of the umbilicus was secured to the fascia using 3-0 Vicryl sutures interrupted ?2. The incision was closed with 3-0 Vicryl subdermal interrupted sutures and the skin was closed with interrupted 4- 0 Monocryl sutures. Steri-Strips and Tegaderm and OpSite were placed over the incision once sterile cotton balls were placed in the umbilicus. Patient was extubated. Patient tolerated procedure well and was taken to the postanesthesia care unit in stable condition. Grafts/Implants Used: Ventralex ST hernia patch LOT [id number], - Complications none
--- NOTE | 2018-09-25 10:55 | PCM.DC.HER ---
Discharge Diet: No Restrictions Discharge Activity: May not drive while taking narcotic pain medications. May shower in (days): 5 - Keep incision clean dry for 5 days okay to lower shower and sponge bath the top or cover in shower. Lifting Restrictions: No lifting greater than 20 pounds x 4 weeks. Additional Activity Instructions:: Keep dressing on the bellybutton for 4-5 days. Keep clean and dry by covering with Ziploc bag with the edges tape for showers. It is okay to remove dressing after 4-5 days but would continue to put either a cotton ball or rolled up gauze in the bellybutton with tape over the top to keep the skin of the bellybutton against the fascia for 2 more days. Call your doctor if your incision/area has: Continuous Slow Oozing, Sudden Increased Bleeding, Increased Pain/ Swelling, Increased Redness, Foul Smelling Discharge, Swelling at the incision site Call your doctor if you observe: Fever of 101 or Higher Remove Dressing in (days):: 4 Additional Instructions: Okay to take ibuprofen 400-600 mg PO q6hr PRN along with the Percocet. Avoid Tylenol since there is already Tylenol in the Percocet. Take all pain meds with food. Percocet can cause constipation recommend taking daily stool softener (i.e. Colace/docusate) while taking the pain meds. Recommend starting some MiraLAX in 2 days if no bowel movement. If still no bowel movement the following day recommend taking magnesium citrate half the bottle and waiting 4-6 hours if still no results take the other half the bottle. Allergies/Adverse Reactions: Allergies cephalexin monohydrate [From Keflex] Allergy (Verified 09/23/18 09:09) Anaphylaxis levetiracetam [From Keppra] Allergy (Verified 09/23/18 09:09) Hives morphine Allergy (Verified 09/23/18 09:09) Shortness of breath naproxen [From Naprosyn] Allergy (Verified 09/23/18 09:09) Hives PAPER TAPE Allergy (Uncoded 09/23/18 09:09) Hives Medications to take at Discharge Gabapentin [Neurontin] 300 mg PO TID 10/27/16 carbamazepine 200 mg tablet 600 mg PO BID tab 04/01/18 oxycodone-acetaminophen 5 mg-325 mg tablet 1 tab PO Q4H PRN 09/22/18 Oxycodone HCl/Acetaminophen [Percocet 5/325] 1 - 2 tablet PO Q6H PRN PRN 5 Days #25 tablet 09/25/18 The following prescriptions were given: Oxycodone HCl/Acetaminophen [Percocet 5/325] 1 - 2 tablet PO Q6H PRN PRN 5 Days #25 tablet PRN Reason: Pain Orders to be completed after discharge: 12 Lead EKG [[facility]] Time Frame: 09/23/18, Facility: [facility], Location: Cardiovascular Services Partial Thromboplast Time Time Frame: 09/23/18, Location: Laboratory Primary Care Physician: Leydi Delong MD [Primary Care Provider] - Test Results: Test results from this visit will be discussed in further detail at your follow-up appointment, if applicable. Please Follow Up With: Maria Isabel Cazares MD - After 5 PM and on the weekends call [phone] with any concerns When: For a follow-up appointment in 1-2 weeks. Proposed Discharge Date: 09/25/18
--- NOTE | 2018-09-25 10:59 | DCINST_ITS ---
Discharge Diet: No Restrictions Discharge Activity: May not drive while taking narcotic pain medications. May shower in (days): 5 - Keep incision clean dry for 5 days okay to lower shower and sponge bath the top or cover in shower. Lifting Restrictions: No lifting greater than 20 pounds x 4 weeks. Additional Activity Instructions:: Keep dressing on the bellybutton for 4-5 days. Keep clean and dry by covering with Ziploc bag with the edges tape for showers. It is okay to remove dressing after 4-5 days but would continue to put either a cotton ball or rolled up gauze in the bellybutton with tape over the top to keep the skin of the bellybutton against the fascia for 2 more days. Call your doctor if your incision/area has: Continuous Slow Oozing, Sudden Increased Bleeding, Increased Pain/ Swelling, Increased Redness, Foul Smelling Discharge, Swelling at the incision site Call your doctor if you observe: Fever of 101 or Higher Remove Dressing in (days):: 4 Additional Instructions: Okay to take ibuprofen 400-600 mg PO q6hr PRN along with the Percocet. Avoid Tylenol since there is already Tylenol in the Percocet. Take all pain meds with food. Percocet can cause constipation recommend taking daily stool softener (i.e. Colace/docusate) while taking the pain meds. Recommend starting some MiraLAX in 2 days if no bowel movement. If still no bowel movement the following day recommend taking magnesium citrate half the bottle and waiting 4-6 hours if still no results take the other half the bottle. Allergies/Adverse Reactions: Allergies cephalexin monohydrate [From Keflex] Allergy (Verified 09/23/18 09:09) Anaphylaxis levetiracetam [From Keppra] Allergy (Verified 09/23/18 09:09) Hives morphine Allergy (Verified 09/23/18 09:09) Shortness of breath naproxen [From Naprosyn] Allergy (Verified 09/23/18 09:09) Hives PAPER TAPE Allergy (Uncoded 09/23/18 09:09) Hives Medications to take at Discharge Gabapentin [Neurontin] 300 mg PO TID 10/27/16 carbamazepine 200 mg tablet 600 mg PO BID tab 04/01/18 oxycodone-acetaminophen 5 mg-325 mg tablet 1 tab PO Q4H PRN 09/22/18 Oxycodone HCl/Acetaminophen [Percocet 5/325] 1 - 2 tablet PO Q6H PRN PRN 5 Days #25 tablet 09/25/18 The following prescriptions were given: Oxycodone HCl/Acetaminophen [Percocet 5/325] 1 - 2 tablet PO Q6H PRN PRN 5 Days #25 tablet PRN Reason: Pain Orders to be completed after discharge: 12 Lead EKG [[facility]] Time Frame: 09/23/18, Facility: [facility], Location: Cardiovascular Services Partial Thromboplast Time Time Frame: 09/23/18, Location: Laboratory Primary Care Physician: Leydi Delong MD [Primary Care Provider] - Test Results: Test results from this visit will be discussed in further detail at your follow- up appointment, if applicable. Please Follow Up With: Maria Isabel Cazares MD - After 5 PM and on the weekends call [phone] with any concerns When: For a follow-up appointment in 1-2 weeks. Proposed Discharge Date: 09/25/18
[2018-09-25 11:14] VITALS: BP 136/79; BP 136/84; PULSE 90; RESP 16; TEMP 36.6; O2SAT 92
[2018-09-25 11:30] VITALS: BP 126/78; BP 136/79; PULSE 92; RESP 16; O2SAT 93
[2018-09-25 11:45] VITALS: BP 128/82; BP 136/79; PULSE 80; RESP 16; O2SAT 93
[2018-09-25 11:53] VITALS: BP 120/73; BP 136/79; PULSE 79; RESP 16; TEMP 36.6; O2SAT 94
[2018-09-25 12:57] VITALS: BP 136/79
== END 2018-09-25 12:59 | disposition home or self-care (01) ==
LOC: SDC 07:58 → AC 07:58
PROVIDERS: Family Provider Internal Medicine; PCP Internal Medicine; Referring Provider Surgery; Visit Provider Surgery
PROC: (CPT 49560; principal; 2018-09-25 09:15)
DX: K43.2 Incisional hernia without obstruction or gangrene (principal); G40.909 Epilepsy, unspecified, not intractable, without status epilepticus; Z79.899 Other long term (current) drug therapy; F17.200 Nicotine dependence, unspecified, uncomplicated
CPT/HCPCS: 49560; 49568; 36415; 85730; 88302; 93005; J7120; C1781; J2405

== ENCOUNTER 2018-10-05 21:42 | Emergency (ER) | payer MEDICAID, SELFPAY ==
[2018-10-05 21:43] VITALS: BP 145/91; PULSE 104; RESP 16; TEMP 36.7; O2SAT 97; BMI 42.6
[2018-10-05] MEDS: Ibuprofen 600 MG Tablet PO (22:03)
[2018-10-05] MEDS: oxyCODONE 5 MG Tablet PO (22:03)
--- NOTE | 2018-10-05 22:45 | ED.VISSUMM ---
- ER Visit Summary Date of Service: 10/05/18 Chief Complaint: Abdominal pain History of Present Illness: The patient is a 38 M 10 days postop umbilical hernia repair by Dr. Cazares. Doing well last Percocet was 2 days ago. Today hour prior to arrival, reports catching his sister who fell. Pain increased after this. No vomiting. No fevers. No drainage or bleeding from site. Has a follow-up in 4 days. Physical Examination: General: Alert and oriented ?3, no acute distress HEENT: Normocephalic, atraumatic. Moist mucosa membranes Neck: supple, nontender. Cardiovascular: Regular rate and rhythm, no murmurs Respiratory: Normal breath sounds, symmetric, no distress Abdomen: Soft, nondistended, inferior umbilicus scabbing, some mild tenderness around this, no drainage or bleeding. Normal bowel sounds. Extremities: Nontender, no edema, pulses intact ?4 Neuro: no focal neurological deficits. Test Results: [] Emergency Department Course and Treatment: Patient postop current pain after catching his sister. Wound appears well with no infections. He is given Motrin and oxycodone ED. Dr. Cazares was in the ED seeing another patient who saw the patient, okayed with NSAIDs and short prescription for Percocet. He will keep his appointment for days. Treatment Plan: [] Disposition: Discharge Impression: 1. Abdominal pain 2. Status post umbilical hernia repair This note was generated with [employer] dictation software. It may contain incorrect words, spelling, and punctuation that were not noted in review of the chart prior to signing ED Disposition - Plan for ED Patient: Disposition: Home or Assisted Living Diagnosis: Abdominal pain, post op umbilical hernia repair Instructions: ED Post Op Pain Prescriptions: Ibuprofen 600 mg PO Q6H PRN PRN #20 tablet PRN Reason: Pain Oxycodone HCl/Acetaminophen [Percocet 5/325] 1 tablet PO Q6H PRN PRN 3 Days #12 tablet PRN Reason: Pain Referrals: Leydi Delong MD [Primary Care Provider] - Maria Isabel Cazares MD [STAFF PHYSICIAN] - Keep Jared appointment
[2018-10-05 23:37] VITALS: PULSE 108; RESP 16; O2SAT 99
== END 2018-10-05 23:37 | disposition home or self-care (01) ==
PROVIDERS: Emergency Provider Emergency Medicine; Family Provider Internal Medicine; PCP Internal Medicine
DX: R10.9 Unspecified abdominal pain (principal); Z98.890 Other specified postprocedural states; G40.909 Epilepsy, unspecified, not intractable, without status epilepticus; Z79.899 Other long term (current) drug therapy; Z72.0 Tobacco use
CPT/HCPCS: 99283

== ENCOUNTER 2022-01-01 17:57 | Emergency (ER) | payer MEDICAID, SELFPAY ==
[2022-01-01 17:57] VITALS: BP 121/92; PULSE 116; RESP 18; TEMP 36.7; O2SAT 98
[2022-01-01 17:58] VITALS: BP 121/92; PULSE 116; RESP 18; TEMP 36.7; O2SAT 98; BMI 42.1
--- NOTE | 2022-01-01 18:20 | EX.ED.DYSGE1 ---
HPI History of Present Illness Chief Complaint: Abd Pain Informant: patient Onset/Context/Timing Onset: Weeks Current Severity: Moderate Maximum Severity: Moderate Narrative Narrative: Patient presents secondary to continued abdominal pain after hernia repair on November 22. Patient states he had an umbilical hernia repair with mesh placement on November [address] Duque. He works out of [employer] as well as [employer]. Patient states he has had CT scans done that show a large hematoma overlying the mesh. He states his surgeon has told him it is normal. He was scheduled to see Dr. Schaefer for second opinion on December 27 but had to be out of town for family emergency and missed that appointment. He presents to the ER today due to continued pain. [facility] Medical History Seizures Home Medications gabapentin 600 mg tablet 300 mg PO TID 10/27/16 [History Last Taken 09/25/18] carbamazepine 200 mg tablet 600 mg PO BID 04/01/18 [History Last Taken 09/25/18] ibuprofen 600 mg tablet 600 mg PO Q6H PRN PRN Pain #20 tabs 10/05/18 [Rx Last Taken Unknown] hydrocodone-acetaminophen 5-325mg 5mg-325mg 1 tab PO Q6H PRN pain 3 days #10 tabs 01/01/22 [Rx Last Taken Unknown] Allergy/AdvReac Type Severity Reaction Status Date / Time cephalexin monohydrate Allergy Anaphylaxis Verified 09/23/18 09:09 [From Keflex] levetiracetam [From Keppra] Allergy Hives Verified 09/23/18 09:09 morphine Allergy Shortness Verified 09/23/18 09:09 of breath naproxen [From Naprosyn] Allergy Hives Verified 09/23/18 09:09 PAPER TAPE Allergy Hives Uncoded 09/23/18 09:09 Family History Grandmother Arthritis Mother Arthritis Seizures Father Colon cancer Diabetes Brother Heart disease Surgical History H/O hernia repair History of appendectomy Social History Smoking Status: Current every day smoker tobacco type: cigarettes alcohol intake: never ROS ROS ED Constitutional Constitutional ED: Denies chills or fever(s) Eyes Eyes: Denies change in vision or discharge from eye(s) ENT ENT ED: Denies discharge from eye(s), rhinorrhea or sore throat Cardiovascular Cardiovascular: Denies chest pain or palpitations Respiratory/Chest Respiratory/Chest: Denies cough or dyspnea Gastrointestinal Gastrointestinal: Reports abdominal pain; Denies diarrhea, nausea or vomiting Genitourinary Genitourinary ED: Denies difficulty urinating or dysuria Musculoskeletal Musculoskeletal: Denies back pain or extremity pain Integumentary Denies Abrasions or rash Neurologic Neurologic: Denies headache(s) or weakness Allergic/Immunologic Allergic/Immunologic ED: Denies lip swelling or urticaria EXAM Physical Exam Const Vital Signs: 01/01/22 17:58 01/01/22 17:57 01/01/22 20:11 Temperature 98.1 F 98.1 F Temperature Source Temporal Temporal Pulse Rate 116 H 116 H Respiratory Rate 18 18 16 Blood Pressure 121/92 H 121/92 H Blood Pressure Mean 101 101 Pulse Ox 98 98 Oxygen Delivery Method Room Air Room Air 01/01/22 20:51 Temperature Temperature Source Pulse Rate 83 Respiratory Rate 18 Blood Pressure 133/86 H Blood Pressure Mean 101 Pulse Ox 100 Oxygen Delivery Method Room Air Positive well nourished and well developed General Appearance ED: well developed HEENT Reports normocephalic and head/scalp atraumatic Eyes PERRL and EOMs intact bilaterally Neck supple Chest Wall inspection of chest normal and palpation of chest normal Resp normal respiratory effort and clear to auscultation bilaterally Cardio regular rate and regular rhythm GI GI Narrative: Abdomen is soft with palpable mass just to the right of the umbilicus. This may be a large hematoma versus recurrent umbilical hernia. Some ecchymotic skin changes are noted. Hypoactive but present bowel sounds are noted. Palpation: soft Back/Spine no CVA tenderness Extremity normal to inspection Neuro oriented x3 and no sensory deficits noted Sensorium / Orientation: alert Motor Exam: strength 5/5 throughout Psych mental status grossly normal Skin no rashes or lesions noted MDM MDM MDM Narrative Medical decision making narrative: Patient given Dilaudid and Zofran along with IV fluids. Lab work obtained as well as CT scan with contrast. Lab Data Attestation: I reviewed the patient's lab results. Labs: Laboratory Results - last 24 hr 01/01/22 01/01/22 01/01/22 18:15 18:15 18:15 WBC 10.2 RBC 4.65 Hgb 14.1 Hct 43.1 MCV 92.7 MCH 30.3 MCHC 32.7 RDW Std Deviation 43.3 RDW Coeff of Nory 12.7 Plt Count 328 MPV 9.2 Immature Gran % (Auto) 0.500 Neut % (Auto) 70.0 Lymph % (Auto) 21.6 Orange % (Auto) 5.8 Eos % (Auto) 1.6 Baso % (Auto) 0.5 Absolute Neuts (auto) 7.1 Absolute Lymphs (auto) 2.19 Nucleated RBC % 0 PT 11.9 INR 0.9 APTT 25.8 Sodium 140 Potassium 3.9 Chloride 111 H Carbon Dioxide 25.0 Anion Gap 4 L BUN 8 Creatinine 0.87 Estim Creat Clear Calc 125.00 Est GFR (MDRD) Af Amer 123 Est GFR (MDRD) Non-Af 101 BUN/Creatinine Ratio 9.2 L Glucose 103 Calcium 9.1 Total Bilirubin 0.20 Direct Bilirubin 0.09 AST 22 ALT 27 Alkaline Phosphatase 43 L Total Protein 7.1 Albumin 3.3 Globulin 3.8 Radiography Diagnostic Testing: Clinical Impression(s) from Imaging Studies Abdomen/Pelvis CT 01/01/22 19:58 IMPRESSION: (NOT LISTED IN ORDER OF SIGNIFICANCE) There is an umbilical fluid collection measuring 96 x 118 mm. This is a mixed density may suggest a postoperative hematoma or seroma. Other findings as above. Electronically Signed: Trung Bazzi MD at 20:26 EDT Reading Location ID and State: [facility] / [place] , Service support , Treatment and Re-Evaluation Narrative: Repeat evaluation patient resting comfortably. Lab work is unremarkable. CT scan reveals a large fluid collection measuring 96 x 118 mm which may represent a postoperative hematoma or seroma. I spoke with Dr. Cazares, on-call for surgery. She explained that typically they did not want to go in and drain these as they do communicate with the mesh and they do not want to cause an infection. Patient will be given an abdominal binder to help with pain. I will write him a few days of pain medication. He is to call Dr. Schaefer's office tomorrow morning to try to reschedule his appointment. Discharge Plan Triage Chief Complaint: Abd Pain ED Provider: Edwina Paz Dx/Rx/DC Orders Clinical Impression: Postoperative hematoma, Post-op pain Instructions: ED Hematoma, ED Post Op Wound Check, Pain Prescriptions: New hydrocodone-acetaminophen 5-325 mg tablet 1 tab PO Q6H PRN (Reason: pain) 3 Days Qty: 10 0RF No Action carbamazepine 200 mg tablet 600 mg PO BID gabapentin 600 MG tablet 300 mg PO TID ibuprofen 600 MG tablet 600 mg PO Q6H PRN PRN (Reason: Pain) Qty: 20 0RF Primary Care Provider: Care Physician,No Primary Referrals: Leydi Delong MD [STAFF PHYSICIAN] - Ibrahima Schaefer MD [STAFF PHYSICIAN] - As soon as possible Disposition Disposition: Home, Self Care
[2022-01-01] MEDS: Ondansetron 4 MG/2 ML Vial IV (18:46)
[2022-01-01] MEDS: HYDROmorphone 1 MG/ML Syringe 0.5 MG IV (18:46)
[2022-01-01] MEDS: 0.9% Normal Saline 1,000 ML 150 ML IV (18:46)
[2022-01-01 18:47] LABS: Absolute Lymphocyte Count 2.19 X10^3/uL (0.83-4.51); Absolute Neutrophil Count 7.1 X10^3/uL (2.0-7.7); Basophil# 0.05 X10^3/uL; Basophil% 0.5 % (0-1); Eosinophil# 0.16 X10^3/uL; Eosinophils% 1.6 % (0-5); Hematocrit 43.1 % (40-54); Hemoglobin 14.1 g/dL (13.0-16.5); Lymphocyte # 2.19 X10^3/ul (0.83-4.51); Lymphocyte % 21.6 % (19-41); Mean Corp Hgb Conc 32.7 g/dL (32-36); Mean Corpuscular Hgb 30.3 pg (27.0-32.0); Mean Corpuscular Volume 92.7 fL (80-94); Mean Platelet Vol. 9.2 fl (6.2-12.0); Monocyte# 0.59 X10^3/uL; Monocyte% 5.8 % (0-10); NRBC Flagged by Analyzer 0 % (0-5); Neutrophil # 7.12 X10^3/uL (2.7-7.7); Platelet Count 328 K/mm3 (150-450); RBC Distribution Width CV 12.7 % (11.6-14.6); RBC Distribution Width SD 43.3 fl (35.1-43.9); Red Blood Count 4.65 M/mm3 (4.6-6.2); White Blood Count 10.2 K/mm3 (4.4-11.0)
[2022-01-01 19:01] LABS: International Normalized Ratio 0.9; Prothrombin Time (Protime)PT. 11.9 SECONDS (11.7-14.9)
[2022-01-01 19:02] LABS: Partial Thromboplast Time 25.8 Seconds (24.1-36.2)
[2022-01-01 19:03] LABS: AST(SGOT) 22 U/L (15-37); Alanine Aminotransfer ALT/SGPT 27 U/L (16-61); Albumin, Serum 3.3 g/dL (3.2-5.0); Alkaline Phosphatase 43 U/L (45-117); Anion Gap 4 (5-15); BUN 8 mg/dL (7-18); BUN/Creat Ratio 9.2 RATIO (10-20); Bilirubin, Direct 0.09 mg/dL (0.00-0.30); Calcium,Total 9.1 mg/dL (8.5-10.1); Chloride 111 mmol/L (98-107); Creatinine, Serum 0.87 mg/dL (0.70-1.30); EST Glomerular Filtration Rate 101 mL/min (>60); Est Glom Filt Rate - Afr Amer 123 mL/min (>60); Globulin 3.8 g/dL (2.2-4.2); Glucose 103 mg/dL (74-106); Potassium 3.9 mmol/L (3.5-5.1); Protein, Total 7.1 g/dL (6.4-8.2); Sodium Level 140 mmol/L (136-145)
--- NOTE | 2022-01-01 19:58 | CT_ITS ---
STUDY: CT Abdomen And Pelvis W/ Contrast Injection 01/01/2022 8:23 PM REASON FOR EXAM: Male, 41 years old. ABDOMINAL PAIN pain -- IV PO Contrast TECHNIQUE: Transaxial images were obtained with oral contrast, and Oral IV Gastrografin and amp; 100mL Isovue-300 intravenous contrast. Individualized dose optimization techniques were used for this CT. COMPARISON: 09.19.18. FINDINGS: The visualized lung bases are unremarkable. The visualized portions of the heart are within normal limits. Unremarkable liver. Unremarkable gallbladder and extrahepatic biliary system. Unremarkable spleen. Unremarkable pancreas. Unremarkable bilateral adrenal glands. No acute findings of the right kidney. No acute findings of the left kidney. Unremarkable visualized stomach. Unremarkable small intestine. Unremarkable colon. There is non-visualization of the appendix. There are calcifications of the abdominal aorta. This is consistent for atherosclerotic disease. There is no abdominal aortic aneurysm. Unremarkable inferior vena cava. Subcentimeter mesenteric lymph nodes. Unremarkable urinary bladder. There are bilateral inguinal hernias containing fat. There is no bowel involvement. There is no incarceration. There is no findings suggesting that this is causing a bowel obstruction. There is an umbilical fluid collection measuring 96 x 118 mm. This is a mixed density may suggest a postoperative hematoma or seroma. There are diffuse degenerative changes of the visualized lumbar spine. CT/Abdomen/Pelvis WITH Contrast IMPRESSION: (NOT LISTED IN ORDER OF SIGNIFICANCE) There is an umbilical fluid collection measuring 96 x 118 mm. This is a mixed density may suggest a postoperative hematoma or seroma. Other findings as above. Electronically Signed: Trung Bazzi MD at 20:26 EDT ,
[2022-01-01 20:11] VITALS: RESP 16
[2022-01-01 20:51] VITALS: BP 133/86; PULSE 83; RESP 18; O2SAT 100
== END 2022-01-01 22:04 | disposition home or self-care (01) ==
PROVIDERS: Emergency Provider Emergency Medicine; Visit Provider Emergency Medicine
DX: L76.32 Postprocedural hematoma of skin and subcutaneous tissue following other procedure (principal); G40.909 Epilepsy, unspecified, not intractable, without status epilepticus; G89.18 Other acute postprocedural pain; Z79.899 Other long term (current) drug therapy; F17.210 Nicotine dependence, cigarettes, uncomplicated; Y83.8 Other surgical procedures as the cause of abnormal reaction of the patient, or of later complication, without mention of misadventure at the time of the procedure
CPT/HCPCS: 74177; 80048; 80076; 85025; 85610; 85730; 96361; 96374; 96375; 99282; J7030; Q9967; A4216; J2405

== ENCOUNTER 2023-06-01 01:11 | Emergency (ER) | payer MEDICAID, SELFPAY ==
[2023-06-01 01:12] VITALS: BP 157/96; PULSE 96; RESP 20; TEMP 36.9; O2SAT 99; BMI 46.3
--- NOTE | 2023-06-01 01:51 | CT_ITS ---
EXAM: CT Abdomen And Pelvis W/O Contrast Injection HISTORY: left abdominal pain -- suspect seroma left abdominal wall TECHNIQUE: Routine protocol CT abdomen and pelvis. IV Contrast: None.. Oral contrast: None. RADIATION DOSAGE (If Supplied By Facility): CTDIvol = ( 33.80 ) mGy, DLP = ( 1925.36 ) mGycm Individualized dose optimization techniques were used for this CT. COMPARISON: CT abdomen pelvis 01/01/2022. LIMITATIONS: None. FINDINGS: LOWER CHEST: Included lung bases are clear. LIVER: Grossly unremarkable. GALLBLADDER AND BILIARY TREE: Grossly unremarkable. PANCREAS: Grossly unremarkable. SPLEEN: Grossly unremarkable. ADRENAL GLANDS: Grossly unremarkable. KIDNEYS AND URETERS: No calculi demonstrated. No hydronephrosis. PERITONEUM: No free air. No free fluid. BOWEL: No bowel obstruction. APPENDIX: Not identified. Surgically absent. VESSELS: Abdominal aorta is normal caliber. REPRODUCTIVE ORGANS: Grossly unremarkable URINARY BLADDER: Grossly unremarkable. ABDOMINAL WALL: There is stranding subcutaneous and edema anterior abdominal wall periumbilical and extending to the left, with a relatively more localized collection centrally approximately 4 x 3.2 cm with ill-defined margins. Previously noted well-defined collection in this region is not identified. No air in the soft tissues Small bilateral inguinal hernias containing only fat, no bowel. BONES: No acute abnormalities. CT/Abdomen/Pelvis without Cont IMPRESSION: Subcutaneous edema periumbilical. Small ill-defined collection but no well-defined margins. No acute intra-abdominal findings. Electronically Signed: Lissy Tompkins MD at 3:07 EST ,
--- NOTE | 2023-06-01 01:52 | EDS_ITS ---
HPI History of Present Illness Chief Complaint: Abd Pain Informant: patient Narrative Narrative: 43-year-old male presenting to the emergency department with a chief complaint of abdominal pain. Patient states in 2021 he had a ventral hernia repair at [facility]. He states that earlier this year he had a another hernia repair and postoperatively developed what he was told was a seroma on the left side of his abdomen. He states that he had a drain placed in November of this year. He 3 weeks ago he went back to [facility] with pain on the left side of his abdominal wall. He states that he was told he had a hematoma and he could followed up with his surgeon who stated there was nothing more they could do. He states the pain has worsened acutely tonight to the point where he cannot lay down and go to sleep. He denies any fever vomiting diarrhea. No constipation. He is having flatus. No urinary symptoms. He states that he is going to call around and try to find a new surgeon. [facility] Medical History Seizures Home Medications gabapentin 600 mg tablet 300 mg PO TID 10/27/16 [History Last Taken 09/25/18] carbamazepine 200 mg tablet 600 mg PO BID 04/01/18 [History Last Taken 09/25/18] ibuprofen 600 mg tablet 600 mg PO Q6H PRN PRN Pain #20 tabs 10/05/18 [Rx Last Taken Unknown] hydrocodone-acetaminophen 5-325mg 5mg-325mg 1 tab PO Q6H PRN pain 3 days #10 tabs 01/01/22 [Rx Last Taken Unknown] benzonatate 100 mg capsule 200 mg (2 x 100 mg) PO TID PRN cough #30 caps 05/28/22 [Rx Last Taken Unknown] hydrocodone-acetaminophen 5-325mg 5mg-325mg 1 tab PO Q6H PRN PRN Pain 3 days #10 TABLETS 06/01/23 [Rx Last Taken Unknown] Allergy/AdvReac Type Severity Reaction Status Date / Time adhesive tape Allergy Hives Verified 06/01/23 01:16 cephalexin monohydrate Allergy Anaphylaxis Verified 06/01/23 01:16 [From Keflex] levetiracetam [From Keppra] Allergy Hives Verified 06/01/23 01:16 morphine Allergy Shortness Verified 06/01/23 01:16 of breath naproxen [From Naprosyn] Allergy Hives Verified 06/01/23 01:16 Family History Grandmother Arthritis Mother Arthritis Seizures Father Colon cancer Diabetes Brother Heart disease Surgical History H/O hernia repair History of appendectomy Social History Smoking Status: Current every day smoker tobacco type: cigarettes alcohol intake: never ROS ROS ED Constitutional Constitutional ED: Denies chills, fever(s) or weight loss Eyes Eyes: Denies change in vision or diplopia ENT ENT ED: Denies ear pain, rhinorrhea or sore throat Cardiovascular Cardiovascular: Denies chest pain, orthopnea, palpitations or racing heartbeat Respiratory/Chest Respiratory/Chest: Denies cough, dyspnea or orthopnea Gastrointestinal Gastrointestinal: Reports abdominal pain; Denies diarrhea, nausea or vomiting Genitourinary Genitourinary ED: Denies dysuria, hematuria or urinary frequency Musculoskeletal Musculoskeletal: Denies arthralgias or myalgias Integumentary Denies abscess or rash Neurologic Neurologic: Denies headache(s) or weakness Psychiatric Psychiatric: Denies anxiety, depression, suicidal ideation or suicidal thoughts Endocrine Endocrinology: Denies polydipsia, polyphagia or polyuria Allergic/Immunologic Allergic/Immunologic ED: Denies mouth swelling, tongue swelling or urticaria EXAM Physical Exam Const Vital Signs: 06/01/23 01:12 Temperature 98.4 F Temperature Source Oral Pulse Rate 96 Respiratory Rate 20 H Blood Pressure 157/96 H Blood Pressure Mean 116 Pulse Ox 99 Oxygen Delivery Method Room Air Positive well nourished, well developed and obese General Appearance ED: well developed Nutritional Appearance: obese HEENT Reports normocephalic, head/scalp atraumatic and moist mucous membranes Eyes PERRL and EOMs intact bilaterally Neck no lymphadenopathy, supple and no JVD Resp normal respiratory effort and clear to auscultation bilaterally Cardio regular rate, regular rhythm and no murmurs GI GI Narrative: Tender to palpation in the left mid abdominal wall. There is a healed ventral incision. Inspection: Negative for abdominal distention Auscultation: normoactive bowel sounds Palpation: soft and tender Back/Spine no CVA tenderness and normal ROM Extremity normal to inspection General Extremety ED: Negative for edema General Extremity: Negative for edema Neuro oriented x3 and CN's II-XII intact bilaterally Sensorium / Orientation: alert Motor Exam: strength 5/5 throughout Psych mental status grossly normal Mood & Affect: Negative for depressed or tearful Skin no rashes or lesions noted and no wounds MDM MDM MDM Narrative Medical decision making narrative: Patient received a dose of oxycodone for pain. CT of the ab pelvis was obtained as patient is gotten out of his care here. This demonstrated some subcutaneous edema in the periumbilical area and small ill-defined collection which may be the seroma that he is referring to. I do not see anything intra-abdominal. I a m not sure that there is really anything surgical that can be done for this. I did certainly do not see anything that would need to be admitted into the hospital or require a emergent surgical consultation tonight. I can refer him to our general surgeon on-call as he is requesting a second opinion. Radiography Diagnostic Testing: Clinical Impression(s) from Imaging Studies Abdomen/Pelvis CT 06/01/23 01:51 IMPRESSION: Subcutaneous edema periumbilical. Small ill-defined collection but no well-defined margins. No acute intra-abdominal findings. Electronically Signed: Lissy Tompkins MD at 3:07 EST Reading Location ID and State: [facility] / [place] Tel , Service support , Discharge Plan Triage Chief Complaint: Abd Pain ED Provider: Carlo Shea Dx/Rx/DC Orders Clinical Impression: Postoperative seroma, Abdominal pain Instructions: ED Seroma, Postsurgical Prescriptions: New hydrocodone-acetaminophen [hydrocodone-acetaminophen] 5-325 mg tablet 1 tab PO Q6H PRN PRN (Reason: Pain) 3 Days Qty: 10 0RF No Action carbamazepine 200 mg tablet 600 mg PO BID benzonatate 100 mg capsule 200 mg PO TID PRN (Reason: cough) Qty: 30 0RF gabapentin 600 MG tablet 300 mg PO TID ibuprofen 600 MG tablet 600 mg PO Q6H PRN PRN (Reason: Pain) Qty: 20 0RF hydrocodone-acetaminophen 5-325 mg tablet 1 tab PO Q6H PRN (Reason: pain) 3 Days Qty: 10 0RF Primary Care Provider: Care Physician,No Primary Referrals: Jeffery Weber MD [Med Staff - Active Staff] - As soon as possible Care Physician,No Primary [Primary Care Provider] - Disposition Disposition: Home, Self Care
[2023-06-01] MEDS: oxyCODONE 5 MG Tablet 10 MG PO (01:59)
== END 2023-06-01 03:43 | disposition home or self-care (01) ==
PROVIDERS: Emergency Provider Emergency Medicine; Visit Provider Emergency Medicine
DX: L76.32 Postprocedural hematoma of skin and subcutaneous tissue following other procedure (principal); R56.9 Unspecified convulsions; R10.9 Unspecified abdominal pain; Z79.899 Other long term (current) drug therapy; Z90.49 Acquired absence of other specified parts of digestive tract; F17.210 Nicotine dependence, cigarettes, uncomplicated
CPT/HCPCS: 74176; 99282

== ENCOUNTER 2023-07-03 22:56 | Emergency (ER) | payer MEDICAID, SELFPAY ==
[2023-07-03 22:57] VITALS: BP 147/90; PULSE 100; RESP 18; TEMP 36.8; O2SAT 100; BMI 45.6
--- NOTE | 2023-07-04 | EDS_ITS ---
HPI History of Present Illness Chief Complaint: Abd Pain [facility] Medical History (Updated 07/04/23 @ 00:[address] Carlo Shea, DO) Abdominal pain Contact with or suspected exposure to other viral communicable disease Contusion of left knee Influenza due to influenza virus, type A, human Left ankle sprain Seizures Seroma after procedure Sprain of left foot Strain of left knee Home Medications gabapentin 600 mg tablet 300 mg PO TID 10/27/16 [History Last Taken 09/25/18] carbamazepine 200 mg tablet 600 mg PO BID 04/01/18 [History Last Taken 09/25/18] ibuprofen 600 mg tablet 600 mg PO Q6H PRN PRN Pain #20 tabs 10/05/18 [Rx Last Taken Unknown] hydrocodone-acetaminophen 5-325mg 5mg-325mg 1 tab PO Q6H PRN pain 3 days #10 tabs 01/01/22 [Rx Last Taken Unknown] benzonatate 100 mg capsule 200 mg (2 x 100 mg) PO TID PRN cough #30 caps 05/28/22 [Rx Last Taken Unknown] hydrocodone-acetaminophen 5-325mg 5mg-325mg 1 tab PO Q6H PRN PRN Pain 3 days #10 TABLETS 06/01/23 [Rx Last Taken Unknown] hydrocodone-acetaminophen 5-325mg 5mg-325mg 1 tab PO Q6H PRN PRN Pain 3 days #12 TABLETS 07/03/23 [Rx Last Taken Unknown] Allergy/AdvReac Type Severity Reaction Status Date / Time adhesive tape Allergy Hives Verified 07/03/23 23:01 cephalexin monohydrate Allergy Anaphylaxis Verified 07/03/23 23:01 [From Keflex] levetiracetam [From Keppra] Allergy Hives Verified 07/03/23 23:01 morphine Allergy Shortness Verified 07/03/23 23:01 of breath naproxen [From Naprosyn] Allergy Hives Verified 07/03/23 23:01 Family History Grandmother Arthritis Mother Arthritis Seizures Father Colon cancer Diabetes Brother Heart disease Surgical History H/O hernia repair History of appendectomy Social History Smoking Status: Current every day smoker tobacco type: cigarettes alcohol intake: never EXAM Physical Exam Const Vital Signs: 07/03/23 22:57 Temperature 98.3 F Temperature Source Temporal Pulse Rate 100 Respiratory Rate 18 Blood Pressure 147/90 H Blood Pressure Mean 109 Pulse Ox 100 Oxygen Delivery Method Room Air Positive well nourished, well developed and obese General Appearance ED: well developed Nutritional Appearance: obese HEENT Reports normocephalic, head/scalp atraumatic and moist mucous membranes Eyes PERRL and EOMs intact bilaterally Neck no lymphadenopathy, supple and no JVD Resp normal respiratory effort and clear to auscultation bilaterally Cardio regular rate, regular rhythm and no murmurs GI GI Narrative: Healed surgical incision. Tenderness palpation left abdominal wall. There is no overlying erythema/rash. Palpation: soft and tender; Negative for guarding or rebound tenderness present Back/Spine no CVA tenderness and normal ROM Extremity normal to inspection General Extremety ED: Negative for edema General Extremity: Negative for edema Neuro oriented x3 and CN's II-XII intact bilaterally Sensorium / Orientation: alert Motor Exam: strength 5/5 throughout Psych mental status grossly normal Mood & Affect: Negative for depressed or tearful Skin no rashes or lesions noted and no wounds Discharge Plan Triage Chief Complaint: Abd Pain ED Provider: Carlo Shea Dx/Rx/DC Orders Clinical Impression: Infected hernioplasty mesh, Abdominal wall pain Prescriptions: New hydrocodone-acetaminophen [hydrocodone-acetaminophen] 5-325 mg tablet 1 tab PO Q6H PRN PRN (Reason: Pain) 3 Days Qty: 12 0RF No Action carbamazepine 200 mg tablet 600 mg PO BID benzonatate 100 mg capsule 200 mg PO TID PRN (Reason: cough) Qty: 30 0RF gabapentin 600 MG tablet 300 mg PO TID ibuprofen 600 MG tablet 600 mg PO Q6H PRN PRN (Reason: Pain) Qty: 20 0RF hydrocodone-acetaminophen 5-325 mg tablet 1 tab PO Q6H PRN (Reason: pain) 3 Days Qty: 10 0RF hydrocodone-acetaminophen [hydrocodone-acetaminophen] 5-325 mg tablet 1 tab PO Q6H PRN PRN (Reason: Pain) 3 Days Qty: 10 0RF Primary Care Provider: Care Physician,No Primary Referrals: Care Physician,No Primary [Primary Care Provider] - Activity Restrictions/Additional Instructions: Please keep your appointment next week with [facility]. Disposition Disposition: Home, Self Care Capacity [employer] Reflex Medical hold order details:: IF a medical hold is selected below, a suggested order for a MEDICAL HOLD will reflex upon signing the document. Next of kin: [place] law dictates a PRIORITY LIST for identifying legal decision-maker/legal next of kin in the following order (LNOK): 1st: The patient?s legal guardian, if any 2nd: The patient's spouse (if status is questionable, consult Risk Management) 3rd: The patient?s adult child(evelyn) (majority, if multiple children) 4th: The patient?s parents 5th: The patient?s adult siblings (majority, if multiple children siblings)
[2023-07-04] MEDS: HYDROmorphone 1 MG/ML Syringe IV (00:12)
[2023-07-04] MEDS: Ketorolac 30 MG/ML Syringe IV (00:13)
[2023-07-04 00:16] VITALS: BP 143/89; PULSE 104; RESP 16; TEMP 36.7; O2SAT 97
[2023-07-04 00:20] VITALS: BP 143/89; PULSE 98; RESP 16; TEMP 36.7; O2SAT 96
== END 2023-07-04 00:33 | disposition home or self-care (01) ==
PROVIDERS: Emergency Provider Emergency Medicine; Visit Provider Emergency Medicine
DX: R10.9 Unspecified abdominal pain (principal); T83.7 Complications due to implanted mesh and other prosthetic materials; R56.9 Unspecified convulsions; Z79.899 Other long term (current) drug therapy; Z90.49 Acquired absence of other specified parts of digestive tract; F17.210 Nicotine dependence, cigarettes, uncomplicated
CPT/HCPCS: 96374; 96375; 99282; A4216

== ENCOUNTER 2024-02-24 23:05 | Emergency (ER) | payer MEDICAID, SELFPAY ==
[2024-02-24 23:06] VITALS: BP 160/92; PULSE 110; RESP 16; TEMP 36.4; O2SAT 97; BMI 50.3
--- NOTE | 2024-02-24 23:23 | RAD_ITS ---
INDICATION: injury EXAMINATION/TECHNIQUE: X-RAY - LEFT XR Foot Min 3 Views 3 VIEWS COMPARISON: No relevant prior comparison study available FINDINGS: SOFT TISSUES: No soft tissue swelling or gas. No radiopaque foreign body. 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 No sclerotic or destructive changes observed. RAD/Foot min 3 Views IMPRESSION: There is no evidence of fracture. Electronically Signed: Vineet Yo MD at 0:12 EDT ,
--- NOTE | 2024-02-24 23:29 | ED.VIS.LOWEX ---
HPI History of Present Illness Chief Complaint: Lower Extremity Injury Informant: patient Narrative Narrative: Patient was working at the local [employer], he jumped down off of an elevated surface landing on his feet, with sudden onset of pain followed by swelling in the left midfoot. He did not twist anything. Denies any ankle pain. To bear weight but hurts. Denies any pain or injury elsewhere. [facility] Medical History Seroma after procedure Influenza due to influenza virus, type A, human Contact with or suspected exposure to other viral communicable disease Abdominal pain Sprain of left foot Left ankle sprain Strain of left knee Contusion of left knee Seizures Home Medications ?Medication ?Instructions ?Recorded ?Last Taken ?Type gabapentin 600 mg tablet 300 mg PO TID 10/27/16 09/25/18 History carbamazepine 200 mg tablet 600 mg PO BID 04/01/18 09/25/18 History hydrocodone-acetaminophen 5-325mg 1 tab PO Q6H PRN pain 3 days #10 01/01/22 Unknown Rx 5mg-325mg tabs benzonatate 100 mg capsule 200 mg (2 x 100 mg) PO TID PRN 05/28/22 Unknown Rx cough #30 caps hydrocodone-acetaminophen 5-325mg 1 tab PO Q6H PRN PRN Pain 3 days 06/01/23 Unknown Rx 5mg-325mg #10 TABLETS hydrocodone-acetaminophen 5-325mg 1 tab PO Q6H PRN PRN Pain 3 days 07/03/23 Unknown Rx 5mg-325mg #12 TABLETS ibuprofen 600 mg tablet 600 mg PO Q8H PRN Pain #15 tabs 02/25/24 Unknown Rx Allergy/AdvReac Type Severity Reaction Status Date / Time adhesive tape Allergy Hives Verified 02/24/24 23:06 cephalexin monohydrate (From Allergy Anaphylaxis Verified 02/24/24 23:06 Keflex) levetiracetam (From Keppra) Allergy Hives Verified 02/24/24 23:06 morphine Allergy Shortness Verified 02/24/24 23:06 of breath naproxen (From Naprosyn) Allergy Hives Verified 02/24/24 23:06 Family History Grandmother Arthritis Mother Arthritis Seizures Father Colon cancer Diabetes Brother Heart disease Surgical History H/O hernia repair History of appendectomy Social History household members: spouse Smoking Status: Current every day smoker tobacco type: cigarettes alcohol intake: never ROS ROS ED Constitutional Constitutional ED: Denies chills or fever(s) Musculoskeletal Musculoskeletal: Reports extremity pain; Denies neck pain Integumentary Denies Abrasions, rash or wounds Neurologic Neurologic: Denies paresthesias or weakness EXAM Physical Exam Const Vital Signs: 02/24/24 23:06 02/25/24 00:46 Temperature 97.6 F L 97 F L Temperature Source Temporal Pulse Rate 110 H 81 Respiratory Rate 16 16 Blood Pressure 160/92 H 139/74 H Blood Pressure Mean 114 95 Pulse Ox 97 99 Oxygen Delivery Method Room Air Positive well nourished and well developed General Appearance ED: well developed and NAD Neck full ROM and supple Back/Spine normal ROM and normal to inspection Extremity Extremity Narrative: Tenderness and mild swelling diffusely left dorsal midfoot. No tenderness at the fifth metatarsal. No tenderness in the other metatarsals or toes. No calcaneus or ankle malleolus tenderness. Neurovascular intact distally. No deformities. Neuro oriented x3, no focal motor deficits and no sensory deficits noted Sensorium / Orientation: alert Psych mental status grossly normal and thought process normal Skin no wounds Rashes: no rashes MDM MDM MDM Narrative Medical decision making narrative: Three-view x-ray series of the left foot were obtained and on my interpretation there are bone spurs and arthritis but I see no acute fracture or dislocation. Radiology in agreement. Patient reassured given anti-inflammatories and a postop shoe to use as needed, if he does not have improvement in a week he can follow-up with podiatry to whom he will be referred. Radiography Diagnostic Testing: Clinical Impression(s) from Imaging Studies Foot X-Ray 02/24/24 23:23 IMPRESSION: There is no evidence of fracture. Electronically Signed: Vineet Yo MD at 0:12 EDT Reading Location ID and State: [facility] / [place] Tel , Service support , Discharge Plan Triage Chief Complaint: Lower Extremity Injury ED Provider: Guevara Choi Dx/Rx/DC Orders Clinical Impression: Sprain of left foot Instructions: ED Foot Sprain Prescriptions: Changed ibuprofen 600 MG tablet 600 mg PO Q8H PRN (Reason: Pain) Qty: 15 0RF No Action carbamazepine 200 mg tablet 600 mg PO BID benzonatate 100 mg capsule 200 mg PO TID PRN (Reason: cough) Qty: 30 0RF gabapentin 600 MG tablet 300 mg PO TID hydrocodone-acetaminophen 5-325 mg tablet 1 tab PO Q6H PRN (Reason: pain) 3 Days Qty: 10 0RF hydrocodone-acetaminophen [hydrocodone-acetaminophen] 5-325 mg tablet 1 tab PO Q6H PRN PRN (Reason: Pain) 3 Days Qty: 10 0RF hydrocodone-acetaminophen [hydrocodone-acetaminophen] 5-325 mg tablet 1 tab PO Q6H PRN PRN (Reason: Pain) 3 Days Qty: 12 0RF Primary Care Provider: Care Physician,No Primary Referrals: Richard Raines DPM [Med Staff - Active Staff] - 1 Week if not improving Care Physician,No Primary [Primary Care Provider] - Print Language: Burmese Disposition Disposition: Home, Self Care Discharge Date/Time: 02/25/24 00:47
[2024-02-25] MEDS: Ibuprofen 600 MG Tablet PO (00:45)
[2024-02-25 00:46] VITALS: BP 139/74; PULSE 81; RESP 16; TEMP 36.1; O2SAT 99
== END 2024-02-25 00:47 | disposition home or self-care (01) ==
PROVIDERS: Emergency Provider Emergency Medicine; Visit Provider Emergency Medicine
DX: S93.602A Unspecified sprain of left foot, initial encounter (principal); Z79.899 Other long term (current) drug therapy; Z90.49 Acquired absence of other specified parts of digestive tract; F17.210 Nicotine dependence, cigarettes, uncomplicated; W17.89XA Other fall from one level to another, initial encounter; Y93.89 Activity, other specified; Y92.89 Other specified places as the place of occurrence of the external cause
CPT/HCPCS: 73630; 99283

== ENCOUNTER 2024-08-24 21:02 | Emergency (ER) | payer MEDICAID, SELFPAY ==
[2024-08-24 21:04] VITALS: BP 142/98; PULSE 108; RESP 18; TEMP 36.3; O2SAT 98; BMI 44.1
--- NOTE | 2024-08-24 21:14 | RAD_ITS ---
PROCEDURE: Right shoulder radiographs REASON FOR EXAM: PAIN, LOSS OF MOBILITY TECHNIQUE: Four views of the right shoulder COMPARISON: None. FINDINGS: See impression RAD/Shoulder min 2 Views IMPRESSION: Negative for acute fracture or malalignment. Persistent internal rotation of t he humeral head. Mild acromioclavicular joint osteoarthritis. Reading Location: [facility]
--- NOTE | 2024-08-24 22:31 | EX.ED.UPPERE ---
HPI History of Present Illness Chief Complaint: Upper Extremity Injury Informant: patient Narrative Narrative: [id number] male presents right shoulder injury 2 hours prior to arrival. He was removing luggage from a box truck pushing down and felt pop in his shoulder. No other injuries. Pain with movement the shoulder. Uses ibuprofen for his knee, does take is not helping his symptoms. Not diabetic. No history injuries right shoulder. Has had left shoulder pain in the past. No surgical intervention. Prior similar symptoms: Yes PFSH [facility] Medical History Seroma after procedure Influenza due to influenza virus, type A, human Contact with or suspected exposure to other viral communicable disease Abdominal pain Sprain of left foot Left ankle sprain Strain of left knee Contusion of left knee Seizures Home Medications ?Medication ?Instructions ?Recorded ?Last Taken ?Type gabapentin 600 mg tablet 300 mg PO TID 10/27/16 09/25/18 History carbamazepine 200 mg tablet 600 mg PO BID 04/01/18 09/25/18 History hydrocodone-acetaminophen 5-325mg 1 tab PO Q6H PRN pain 3 days #10 01/01/22 Unknown Rx 5mg-325mg tabs benzonatate 100 mg capsule 200 mg (2 x 100 mg) PO TID PRN 05/28/22 Unknown Rx cough #30 caps hydrocodone-acetaminophen 5-325mg 1 tab PO Q6H PRN PRN Pain 3 days 06/01/23 Unknown Rx 5mg-325mg #10 TABLETS hydrocodone-acetaminophen 5-325mg 1 tab PO Q6H PRN PRN Pain 3 days 07/03/23 Unknown Rx 5mg-325mg #12 TABLETS ibuprofen 600 mg tablet 600 mg PO Q8H PRN Pain #15 tabs 02/25/24 Unknown Rx prednisone 20 mg tablet 60 mg (3 x 20 mg) PO DAILY #12 08/24/24 Unknown Rx TABLETS Allergy/AdvReac Type Severity Reaction Status Date / Time adhesive tape Allergy Hives Verified 08/24/24 21:04 cephalexin monohydrate (From Allergy Anaphylaxis Verified 08/24/24 21:04 Keflex) levetiracetam (From Keppra) Allergy Hives Verified 08/24/24 21:04 morphine Allergy Shortness Verified 08/24/24 21:04 of breath naproxen (From Naprosyn) Allergy Hives Verified 08/24/24 21:04 Family History Grandmother Arthritis Mother Arthritis Seizures Father Colon cancer Diabetes Brother Heart disease Surgical History H/O hernia repair History of appendectomy Social History household members: spouse Smoking Status: Current every day smoker tobacco type: cigarettes alcohol intake: never ROS ROS ED Constitutional Constitutional ED: Denies fever(s) Cardiovascular Cardiovascular: Denies chest pain Respiratory/Chest Respiratory/Chest: Denies cough Gastrointestinal Gastrointestinal: Denies diarrhea, nausea or vomiting Musculoskeletal Musculoskeletal: Reports extremity pain; Denies back pain or neck pain Neurologic Neurologic: Denies headache(s) or paresthesias EXAM Physical Exam Const Vital Signs: 08/24/24 21:04 Temperature 97.3 F L Temperature Source Temporal Pulse Rate 108 H Respiratory Rate 18 Blood Pressure 142/98 H Blood Pressure Mean 112 Pulse Ox 98 Oxygen Delivery Method Room Air Positive well nourished and well developed General Appearance ED: well developed and NAD HEENT Reports moist mucous membranes normocephalic and atraumatic Eyes General Eye ED: Yes normal appearance of both eyes Neck full ROM Chest Wall Chest: Negative for tenderness Resp normal respiratory effort and normal air movement Effort and Inspection: symmetric chest movement; Negative for respiratory distress Cardio regular rate, regular rhythm and no murmurs Peripheral Pulses: pulses 2+ throughout GI normal to inspection, nondistended, normoactive bowel sounds and non-tender Palpation: Negative for guarding or rebound tenderness present Extremity Extremity Narrative: Right upper extremity no clavicle tenderness no cream clavicular tenderness. No deformity of the shoulder. Negative empty can. Positive speeds test. Able to flex his elbow with no difficulties. Soft compartments. Neuro vas intact distally. General Extremety ED: Yes tenderness; Negative for edema General Extremity: Negative for edema Neuro oriented x3 and no sensory deficits noted Sensorium / Orientation: awake and alert Skin no rashes or lesions noted and no wounds MDM MDM MDM Narrative Medical decision making narrative: Interventions / MDM: Differential diagnosis: Right biceps tendinitis Diagnosis considered but do not suspect: Fracture/description or x-ray negative. My EKG interpretation: N/A Imaging independently reviewed and interpreted by myself: Right shoulder 3 views: No fracture or dislocation also read by radiology. External documents reviewed: N/A Test considered but not ordered:N/A ED course: Patient had x-rays ordered through triage turbid myself read by radiology shows no acute process. On exam he has clinical biceps tendinitis of the long heads. Discussed this with the patient. He will continue his ibuprofen. He is nondiabetic states was not helping therefore we will add prednisone. Outpatient follow-up given. All questions were answered. Re-evaluation: stable Disposition discussed with patient/family/significant other: Patient Case discussed with consulting clinician: N/A This note was generated with Recicl[employer]ation software. It may contain incorrect words, spelling, and punctuation that were not noted in checking the note before signing. Radiography Diagnostic Testing: Clinical Impression(s) from Imaging Studies Shoulder X-Ray 08/24/24 21:14 IMPRESSION: Negative for acute fracture or malalignment. 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 Mild acromioclavicular joint osteoarthritis. Reading Location: [facility] Discharge Plan Triage Chief Complaint: Upper Extremity Injury ED Provider: Cristian Barrera Dx/Rx/DC Orders Clinical Impression: Tendinitis of long head of biceps brachii of right shoulder, Injury of right shoulder Instructions: Biceps Tendonitis Prescriptions: New prednisone 20 mg tablet 60 mg PO DAILY Qty: 12 0RF No Action carbamazepine 200 mg tablet 600 mg PO BID benzonatate 100 mg capsule 200 mg PO TID PRN (Reason: cough) Qty: 30 0RF gabapentin 600 MG tablet 300 mg PO TID hydrocodone-acetaminophen 5-325 mg tablet 1 tab PO Q6H PRN (Reason: pain) 3 Days Qty: 10 0RF hydrocodone-acetaminophen [hydrocodone-acetaminophen] 5-325 mg tablet 1 tab PO Q6H PRN PRN (Reason: Pain) 3 Days Qty: 10 0RF hydrocodone-acetaminophen [hydrocodone-acetaminophen] 5-325 mg tablet 1 tab PO Q6H PRN PRN (Reason: Pain) 3 Days Qty: 12 0RF ibuprofen 600 MG tablet 600 mg PO Q8H PRN (Reason: Pain) Qty: 15 0RF Primary Care Provider: Care Physician,No Primary Referrals: Care Physician,No Primary [Primary Care Provider] - Tona Soliz DO [[facility]] - 1-2 Weeks Activity Restrictions/Additional Instructions: Your x-ray right shoulder negative. Your clinical exam concerns for biceps tendinitis of the shoulder region. Continue ibuprofen. Finish prednisone as prescribed. Print Language: French Disposition Disposition: Home, Self Care Discharge Date/Time: 08/24/24 22:46
[2024-08-24] MEDS: predniSONE 20 MG Tablet 60 MG PO (22:34)
[2024-08-24 22:40] VITALS: BP 118/70; PULSE 80; RESP 16; TEMP 37.3; O2SAT 100
== END 2024-08-24 22:46 | disposition home or self-care (01) ==
LOC: ED 22:42
PROVIDERS: Emergency Provider Emergency Medicine; PCP Nurse Practitioner Family; Visit Provider Emergency Medicine
DX: M75.21 Bicipital tendinitis, right shoulder (principal); R56.9 Unspecified convulsions; S09.90XA Unspecified injury of head, initial encounter; F17.210 Nicotine dependence, cigarettes, uncomplicated; X50.9XXA Other and unspecified overexertion or strenuous movements or postures, initial encounter; Y93.89 Activity, other specified; Y92.812 Truck as the place of occurrence of the external cause; Z79.899 Other long term (current) drug therapy; Z90.49 Acquired absence of other specified parts of digestive tract
CPT/HCPCS: 73030; 99282

== ENCOUNTER 2024-09-19 21:16 | Emergency (ER) | payer MEDICAID, SELFPAY ==
[2024-09-19 21:16] VITALS: BP 153/89; PULSE 106; RESP 17; TEMP 36.2; O2SAT 100
--- NOTE | 2024-09-19 21:27 | RAD_ITS ---
PROCEDURE: SHOULDER MIN 2 VIEWS 09/19/2024 REASON FOR EXAM: TRAUMA TECHNIQUE: 4 view(s) of the right shoulder COMPARISON: None FINDINGS: Bones: No acute fracture. Joints: Normal alignment of the acromioclavicular and glenohumeral joints. Soft tissues: Soft tissues are unremarkable. Other: RAD/Shoulder min 2 Views IMPRESSION: NO ACUTE FRACTURE OR DISLOCATION. Reading Location: [facility]
--- NOTE | 2024-09-19 21:27 | RAD_ITS ---
PROCEDURE: CLAVICLE 09/19/2024 REASON FOR EXAM: TRAUMA TECHNIQUE: Two views of the right clavicle were obtained COMPARISON: None FINDINGS: Bones: No acute fracture. Joints: Joint spaces are preserved. Soft tissues: No soft tissue abnormality. RAD/Clavicle IMPRESSION: NO EVIDENCE OF CLAVICLE FRACTURE Reading Location: [place]
--- NOTE | 2024-09-19 21:29 | EDS_ITS ---
HPI History of Present Illness Chief Complaint: Upper Extremity Injury Narrative Narrative: 44-year-old male, [id number], presents with injury to his right shoulder and clavicle that he sustained on Friday, 5 days ago. He relates history that he was seen a few weeks ago and was having shoulder pain previously. He was seen in the emergency department and prescribed a medication for tendinitis which has not been helping. He was on a forefoot stepladder when he was trying to get down and missed a stair, and landed on his right shoulder. While he may have hit his head and fell onto his right side, he denies any loss of consciousness or any other injury. He has been having pain in his right shoulder and right clavicle ever since. Pain is worse with movement and when he tries to raise his right arm. Denies other injuries. PFSH [facility] Medical History Seroma after procedure Influenza due to influenza virus, type A, human Contact with or suspected exposure to other viral communicable disease Abdominal pain Sprain of left foot Left ankle sprain Strain of left knee Contusion of left knee Seizures Home Medications ?Medication ?Instructions ?Recorded ?Last Taken ?Type NK 09/19/24 Unknown History Allergy/AdvReac Type Severity Reaction Status Date / Time adhesive tape Allergy Hives Verified 09/19/24 21:19 cephalexin monohydrate (From Allergy Anaphylaxis Verified 09/19/24 21:19 Keflex) levetiracetam (From Keppra) Allergy Hives Verified 09/19/24 21:19 morphine Allergy Shortness Verified 09/19/24 21:19 of breath naproxen (From Naprosyn) Allergy Hives Verified 09/19/24 21:19 Family History Grandmother Arthritis Mother Arthritis Seizures Father Colon cancer Diabetes Brother Heart disease Surgical History H/O hernia repair History of appendectomy Social History household members: spouse Smoking Status: Current every day smoker tobacco type: cigarettes alcohol intake: never ROS ROS ED ROS Narrative Systems positive for right clavicle and shoulder pain worse with movement. [id number]. Denies hitting of his head or loss of consciousness, no other injury. No elbow pain. EXAM Physical Exam Narrative Exam Narrative: GCS 15. ABCs intact. Afebrile. Vital signs noted. Cardiovascular examination reveals mild tachycardia at 106 bpm. Lungs clear to auscultation bilaterally. Abdomen soft and nontender with positive bowel sounds. Inspection of the right shoulder reveals mild tenderness to palpation in the right clavicle and diffusely in the right shoulder but also in the right AC joint. No clinical dislocation. Able to raise arm to approximately 30 degrees but then experiences pain. Neurovascular intact distally. Able to flex and extend elbow without difficulty on the right. Palpable radial pulse. Uninjured at elbow and below. Const Vital Signs: 09/19/24 21:16 Temperature 97.1 F L Temperature Source Temporal Pulse Rate 106 H Respiratory Rate 17 Blood Pressure 153/89 H Blood Pressure Mean 110 Pulse Ox 100 Oxygen Delivery Method Room Air MDM MDM MDM Narrative Medical decision making narrative: Differential diagnosis includes but not limited to right shoulder contusion versus clavicle contusion versus fracture versus proximal humeral fracture versus AC joint separation. Patient was given 1 [facility] tablet here for analgesia and x-rays obtained of the right clavicle and of the right shoulder. On my independent interpretation of the right clavicle x-ray, there is no evidence of an acute fracture. I reviewed the radiology report which confirms my independent interpretation. Additionally, I interpreted the right shoulder x-ray and see no evidence of acute fracture or dislocation. I reviewed the radiology report which also confirms my independent interpretation. At this point in time, he will be given a sling for comfort. He was told to exercise his right shoulder a few times a day and not use the sling all the time to prevent adhesive capsulitis. He was referred to orthopedics for follow-up in 1 week if not improving. I feel he can take [id number] medications for analgesia. Return instructions to the emergency department were reviewed. Disposition is discharged home in stable condition. History & Record Review Discussion w/independent historian: Patient and Significant other Radiography X-Ray: Read by ED Physician, Read by Radiologist, No Fracture and Normal Bony Alignment Discharge Plan Triage Chief Complaint: Upper Extremity Injury ED Provider: Brian Maldonado Dx/Rx/DC Orders Clinical Impression: Fall from ladder, Contusion of right shoulder region, Pain of right clavicle Instructions: ED Shoulder Pain, Uncertain Cause Prescriptions: No Action NK Primary Care Provider: Viola Starkey NP Referrals: Dariel Stephen DO [Med Staff - Active Staff] - 1 Week if not improving Viola Starkey NP, [employer] [Primary Care Provider] - Activity Restrictions/Additional Instructions: You may wear the sling for comfort but exercise your right shoulder at least 3 times a day to prevent frozen shoulder. [id number] medications as needed for pain. Follow-up with orthopedics if not improving. Print Language: Swedish Disposition Disposition: Home, Self Care
[2024-09-19 21:32] VITALS: BMI 44.7
[2024-09-19] MEDS: HYDROcodone Bitartrate/Apap 5/325 Tablet PO (21:47)
[2024-09-19 22:25] VITALS: BP 136/93; PULSE 99; RESP 16; TEMP 36.1; O2SAT 97
== END 2024-09-19 22:29 | disposition home or self-care (01) ==
PROVIDERS: Emergency Provider Emergency Medicine; PCP Nurse Practitioner Family; Referring Provider Emergency Medicine; Visit Provider Emergency Medicine
DX: M25.511 Pain in right shoulder (principal); S40.011A Contusion of right shoulder, initial encounter; F17.210 Nicotine dependence, cigarettes, uncomplicated; W11.XXXA Fall on and from ladder, initial encounter; Z90.49 Acquired absence of other specified parts of digestive tract
CPT/HCPCS: 73000; 73030; 99283

== ENCOUNTER 2024-12-06 23:19 | Emergency (ER) | payer MEDICAID, SELFPAY ==
[2024-12-06 23:19] VITALS: BP 155/91; PULSE 112; RESP 16; TEMP 36.1; O2SAT 99; BMI 43.9
--- NOTE | 2024-12-06 23:23 | RAD_ITS ---
PROCEDURE: HAND MIN 3 VIEWS 12/06/2024 REASON FOR EXAM: INJURY TECHNIQUE: HAND MIN 3 VIEWS COMPARISON: None FINDINGS: No fracture or traumatic malalignment. Joint spaces are predominantly maintained. Bone mineral density is subjectively normal. The soft tissues are unremarkable. RAD/Hand Min 3 Views IMPRESSION: No acute osseous abnormality of the right hand. Reading Location: [facility]
--- OUTSIDE RECORDS SUMMARY | 2024-12-07 | XMS RPT_ITS | CCD ---
Author Organization [facility] CliniSyvt Care Team Providers Care Arborer Name Role Phone JOSH HELTON Unavailable Unavailable MADDISON MARTIN Unavailable Unavailable CIELO ALANIZ Unavailable Unavailable MILDRED GALLARDO Unavailable Unavailable MADDISON MARTIN Unavailable Unavailable MADDISON MARTIN Unavailable Unavailable DR MADDISON MARTIN MD Primary Care Physician PHYSICIAN, NONE Primary Care Physician Unavailab Maddison Cowan MD Primary Care Provider [phone] Unavailable Primary Care Provider Unavailabl e PROVIDER, UNKNOWN Referring Unavailable No, PCP Primary Care Unavailable GILES MAIER Attending Unavailab le No, Pcp Primary Care Provider Unavailabl e Unavailable Primary Care Provider Unavailabl e NO, PCP Primary Care Unavailable NO, PCP Primary Care Unavailable PATRICK VIGIL DO Attending Unavailable PATRICK VIGIL DO Primary Care Unavailable PATRICK VIGIL DO Admitting Unavailable NO, PHYSICIAN Primary Care Unavailable AARON IVEY Attending Unavailable NO, PHYSICIAN Primary Care Unavailable OSWALDO JOHNSON Attending Unavailable JITENDRA TRUONG Consulting ROCHELLE Washington Attending Unavailable PCP, NO Primary Care Unavailable Care Physician, No Primary Primary Care Provider Unavailable Care Physician, No Primary Referring Provider Un available Dr. Jeffery Weber Attending Provider Maddison Martin MD Primary Care Provider Jeffery Weber MD Unavailable VIOLA HERNANDEZ Primary Care Physician Maddison Martin MD Primary Care Provider TOI MARMOLEJO DO Attending Unavailable PHYSICIAN, NONE Primary Care Unavailable VIOLA HERNANDEZ Primary Care REYES Tate DO Attending Unavailable PAUL DOBSON Attending Unavailable PHYSICIAN, NONE Primary Care Unavailable REICHFIELD DO, TOI Attending Unavailable PHYSICIAN, NONE Primary Care Unavailable YARA HENSON MD Attending Unavailable PHYSICIAN, NONE Primary Care Unavailable MARY ANN JEONG, DR LEDY Kirkpatrick Attending Unavai lable PHYSICIAN, NONE Primary Care Unavailable DEVAUGHN MCCARTY-BERT, AVANI Attending Unavailshelby e PHYSICIAN, NONE Primary Care Unavailable ROSHNI FLORES PA-C Attending Itzel vailable PHYSICIAN, NONE Primary Care Unavailable DAVONTE ONEILL MD Attending Unavail able LALITO GIRALDON-DOOR CLOSER, VIOLA Siddiqi Primary Care Unavai lable REICHFIELD DO, TOI Attending Unavailable PHYSICIAN, NONE Primary Care Unavailable MARY ANN JEONG, DR LEDY Kirkpatrick Attending Unavai lable PHYSICIAN, NONE Primary Care Unavailable BEFFCesar, JESE DARBY Referring Unava ilable GANTA, MADDISON Primary Care Unavailable BEFFA, JESE DARBY Referring Unava ilable GANTA, MADDISON Primary Care Unavailable BEFFA, JESE DARBY Admitting Unava ilable BEFFA, JESE DARBY Attending Unava ilable GANTA, MADDISON Primary Care Unavailable BEFFA, JESE DARBY Referring Unava ilable GANTA, MADDISON Primary Care Unavailable BEFFA, JESE DARBY Referring Unava ilable GANTA, MADDISON Primary Care Unavailable LINDA GRIFFITHS Referring Unavailable GANTA, MADDISON Primary Care Unavailable KELLEY MERAZ Attending Unavailable BEFFA, JESE DARBY Attending Unava ilable GANTA, MADDISON Primary Care Unavailable Unavailable Primary Care Provider UnavailJonathan Randolph MD Unavailable Jonathan Gonzalez MD Unavailable Care Physician, No Primary Primary Care Provider Unavailable Dr. Cristian Barrera DO Emergency Provider VIOLA HERNANDEZ Attending Alireza RAMÍREZ, VIOLA Siddiqi Primary Care Unavai lable SHANIKA TIRADO DO Attending Unavailable LALITO MCCARTY-BERT, VIOLA Siddiqi Primary Care Unavai lable CHOUJAA DORADHA Attending Unavailable LALITO RAMÍREZ, VIOLA Siddiqi Primary Care Unavai labDr. Cristian Marshall Attending Provider Lalito TICKET MARKER-C, Viola Primary Care Provider Brian Maldonado MD Referring Provider Brian Maldonado MD Emergency Provider Guevara Choi Attending Unavailable Care Physician, No Primary Primary Care Unava ilable Cristian Barrera Attending Unavailable Lalito TICKET MARKER, Viola Primary Care Unavailable Brian Maldonado Attending Unavailable Brian Maldonado Referring Unavailable Lalito TICKET MARKER, [facility] Primary Care Unavailable Allergies Allergy Classification Reported Allergen(s) Allergy Type Date of Onset Reaction(s) Facility (20 sources) Cephalexin; Translations: [cephalexin] Drug Allergy 11-13-19 17 [facility] (20 sources) levETIRAcetam; Translations: [levetiracetam] Drug Allergy 10-24-19 17 [facility] (20 sources) Morphine; Translations: [morphine] Drug Allergy 10-24-19 17 Anaphylaxis, [facility] (20 sources) Naproxen; Translations: [naproxen] Drug Allergy 07-08-19 18 [facility] (20 sources) Tape, Paper Propensity to adverse reactions to substance [facility] (6 sources) Cephalexin; Translations: [cephalexin monohydrate] Drug Allergy 09-24-19 19 Anaphylaxis [facility] (2 sources) PAPER TAPE; Translations: [PAPER TAPE] Allergy to substance 09-24-19 19 [facility] (9 sources) Adhesive Tape-Silicones; Translations: [ADHESIVE TAPE-SILICONES] Drug Allergy 10-24-19 17 [facility] (7 sources) Adhesive Tape Propensity to adverse reactions to drug 03-08-20 22 [facility] Comment on above: PAPER TAPE (1 source) levETIRAcetam Drug Allergy [facility] (1 source) Morphine Drug Allergy [facility] (1 source) Naproxen Drug Allergy [facility] (2 sources) Levetiracetam Allergy to substance 10-24-19 [facility] (2 sources) Wound Dressing Adhesive Drug Intolerance 03-08-20 [facility] (1 source) Adhesive agent Drug Intolerance 03-08-20 [facility] (1 source) Adhesive Tape Drug allergy (disorder) 09-20-19 [facility] (1 source) levETIRAcetam Drug Allergy 09-20-19 [facility] (1 source) Morphine Drug Allergy 09-20-19 [facility] (1 source) Naproxen Drug Allergy 09-20-19 [facility] Rep[facility] Medications Current Medications Medication Drug Class(es) Dates Sig (Normalized) Sig (Original) acetaminophen 500 mg oral tablet (3 sources) Start: 04-03-2022 acetaminophen (TYLENOL) tablet 1,000 mg Start: 04-03-2022 End: 04-08-2022 take 1 tablet by mouth every six hours as needed for pain acetaminophen (TYLENOL) 500 MG tablet Take 1 tablet by mouth every 6 hours as needed for Pain 20 tablet 0 04/03/2022 Active acetaminophen 325 mg / oxyCODONE hydrochloride 5 mg oral tablet (12 sources) Opioid Agonist Start: 09-11-2023 End: 09-14-2023 take 1 tablet by mouth every six hours as needed for pain Percocet 5 mg-325 mg oral tablet Dose = 1 tab(s), Oral, q6h, PRN for pain, X 3 day(s), # 12 tab(s), 0 Refill(s), Abdominal pain, 143.1 Start Date: 09/11/23 Stop Date: 09/14/23 Status: Ordered Start: 10-05-2018 End: 10-08-2018 Oxycodone-Acetaminophen 1 TA BLET tablet Discontinued 1 {tbl} PO EVERY 6 HOURS NEEDED as needed for Pain 12 October 05, 2018 12:00am October 07, 2018 12:00am October 08, 2018 12:09am Start: 10-05-2018 End: 10-08-2018 take 1 tablet by mouth every six hours as needed Oxycodone-Acetaminophen Discontinued 1 TABLET PO EVERY 6 HOURS NEEDED 12 October 04, 2018 11:00pm October 07, 2018 11:09pm Start: 09-25-2018 End: 09-30-2018 Oxycodone-Acetaminophen 1 TA BLET tablet Discontinued 1 - 2 {tbl} PO EVERY 6 HOURS NEEDED as needed for Pain 07 11September 25, 2018 12:00am September 29, 2018 12:00am September 30, 2018 12:07am Start: 09-25-2018 End: 09-30-2018 take 1 tablet by mouth every six hours as needed Oxycodone-Acetaminophen Discontinued 1 - 2 TABLET PO EVERY 6 HOURS NEEDED 07 11September 24, 2018 11:00pm September 29, 2018 11:07pm Start: 09-21-2018 End: 09-24-2018 take 1 tablet by mouth every four hours as needed for pain Percocet 325/5 oral tablet Dose = 1 tab(s), Oral, q4h, PRN for pain, # 12 tab(s), 0 Refill(s), Abdominal hernia Start Date: 09/21/18 Stop Date: 09/24/18 Status: Ordered carBAMazepine 200 mg oral tablet (20 sources) Mood Stabilizer Start: 09-16-2018 End: 08-06-2023 take 1 tablet by mouth twice daily carBAMazepine XR (TEGRETOL XR) 400 mg 12 hr tablet Indications: Seizure disorder (HCC) Take 1 tablet by mouth twice daily. 60 tablet 2 09/16/2018 08/06/2023 Discontinued (Discontinued by another Health Care Provider) Start: 10-31-2016 take 1 dose by mouth twice daily TEGretol Dose : 600 mg =, Oral, BID, 0 Refill(s) Start Date: 10/31/16 Status: Ordered Start: 10-11-2016 End: 04-01-2018 take 1 tablet by mouth twice daily Carbamazepine 200 MG tablet Discontinued 600 mg PO TWICE A DAY October 11, 2016 12:00am April 01, 2018 9:36am Start: 10-11-2016 End: 04-01-2018 take 600 mg by mouth twice daily Carbamazepine Active 600 MG PO TWICE A DAY April 01, 2018 8:35am carBAMazepine (T EGRETOL PO) Take by mouth 0 Active Comment on above: Take 1 tablet by hien twice daily. gabapentin 800 mg oral tablet (19 sources) Anti-epileptic Agent Start: 08-07-2023 Neurontin 800 mg oral tablet Dose : 800 mg = 1 tab(s), Oral, TID, # 270 tab(s), 0 Refill(s), 136.4 Start Date: 08/07/23 Status: Ordered Start: 10-31-2016 End: 10-16-2023 take 1 capsule by mouth three times daily gabapentin (NEURONTIN) 300 mg capsule Indications: Left lower quadrant abdominal pain Take 1 capsule by mouth three times a day for 90 days. 90 capsule 2 07/18/2023 10/16/2023 Active Start: 10-27-2016 End: 09-19-2024 Gabapentin 600 MG tablet Discontinued 300 mg PO THREE TIMES A DAY October 27, 2016 12:00am September 19, 2024 9:33pm Start: 10-27-2016 take 300 mg by mouth three times daily Gabapentin Active 300 MG PO THREE TIMES A DAY October 26, 2016 11:00pm take [address] [facility] three times daily gabapentin (NEURONTIN) 100 MG capsule Take 100 mg by mouth 3 times daily. 0 Active Comment on above: Take 1 capsule by mo ut three times daily for 90 days. Take 1 capsule by mo ut three times a day for 90 days. [place] (Nk) (1 source) Start: [place] (Nk) Active September 19, 2024 12:00am ondansetron 4 mg oral tablet (4 sources) Serotonin-3 Receptor Antagonist Start: take 1 tablet by mouth every eight hours as needed for nausea and vomiting ondansetron 4 mg oral tablet TAKE 1 TAB(S) ORAL EVERY 8 HOURS NEEDED FOR NAUSEA AND VOMITING Start Date: 08/01/22 Status: Ordered sulfamethoxazole 800 mg / trimethoprim 160 mg oral tablet (1 source) Dihydrofolate Reductase Inhibitor Antibacterial, Sulfonamide Antimicrobial Start: End: take 1 tablet by mouth twice daily Bactrim DS 800 mg-160 mg oral tablet Dose = 1 tab(s), Oral, BID, X 5 day(s), # 10 tab(s), 0 Refill(s), 149.9 Start Date: 02/12/23 Stop Date: 02/17/23 Status: Ordered Completed/Discontinued Medications Medication Drug Class(es) Dates Sig (Normalized) Sig (Original) acetaminophen 325 mg / HYDROcodone bitartrate 5 mg oral tablet (20 sources) Opioid Agonist Start: 06-01-2023 End: 09-19-2024 Hydrocodone-Acetami nophen 5-325 mg tablet Discontinued 1 {tbl} PO EVERY 6 HOURS NEEDED as needed for Pain 12 July 03, 2023 September 19, 2024 9:33pm Start: 06-01-2023 take 1 tablet by hien th every six hours as needed Hydrocodone-Acetaminophen Active 1 TABLE T PO EVERY 6 HOURS NEEDED 10 June 01, 2023 Start: 09-05-2022 take 1 tablet by hien th every six hours as needed for pain acetaminophen-hydrocodone 325 mg-5 mg or al tablet Dose = 1 tab(s), Oral, q6h, PRN for pain, # 12 tab(s), 0 Refill(s), 136.4 Start Date: 09/05/22 Status: Ordered Start: 08-28-2022 End: 08-31-2022 take 1 tablet by mouth every six hours as needed for pain Tynan 325- 5 mg oral tablet Dose = 1 tab(s), Oral, q6h, PRN as needed for pain, X 3 day(s), # 12 tab(s), 0 Refill(s), Ser[place], 136.4 Start Date: 08/28/22 Stop Date: 08/31/22 Status: Ordered Start: 07-18-2022 End: 07-25-2022 Tynan 325- 5 mg oral tablet Dose = 1 tab(s), Oral, q4h, PRN Pain, scale 4-6, X 7 day(s), # 28 tab(s), 0 Refill(s), Pharmacy: [facility] #[id number], Acute post-operative pain, 188, cm, 07/18/22 7:07:00 EST, Height, 134, kg, 07/18/22 7:07:00 EST, Dosing Weight Start Date: 07/18/22 Stop Date: 07/25/22 Status: Ordered Start: 04-25-2022 End: 04-25-2022 HYDROcodone-acetaminophen (N ORCO) 5-325 MG per tablet 1 tablet Start: 01-01-2022 End: 09-19-2024 take 1 tablet by mouth every six hours as needed for pain Tynan 325- 5 mg oral tablet Dose = 1 tab(s), Oral, q6h, PRN as needed for pain, X 3 day(s), # 12 tab(s), 0 Refill(s), [place], 153.5 Start Date: 08/18/22 Stop Date: 08/21/22 Status: Ordered Start: 01-01-2022 take 1 tablet by hien th every six hours as needed Hydrocodone-Acetaminophen Active 1 TABLE T PO EVERY 6 HOURS NEEDED 12 July 03, 2023 Start: 12-21-2021 End: 12-24-2021 take 1 tablet by mouth every six hours as needed for pain Tynan 325- 5 mg oral tablet Dose = 1 tab(s), Oral, q6h, PRN as needed for pain, X 3 day(s), # 12 tab(s), 0 Refill(s), Hematoma, 134 Start Date: 12/21/21 Stop Date: 12/24/21 Status: Ordered Start: 11-30-2021 End: 12-03-2021 take 1 tablet by mouth every six hours as needed for pain Tynan 325- 5 mg oral tablet Dose = 1 tab(s), Oral, q6h, PRN As needed for severe pain, X 3 day(s), # 12 tab(s), 0 Refill(s), Postoperative abdominal pain, 141.1 Start Date: 11/30/21 Stop Date: 12/03/21 Status: Ordered Start: 10-06-2021 End: 10-09-2021 take 1 tablet by mouth every six hours Tynan 325- 5 mg oral tablet Dose = 1 tab(s), Oral, q6h, # 12 tab(s), 0 Refill(s), Umbilical hernia, 146.5 Start Date: 10/06/21 Stop Date: 10/09/21 Status: Ordered benzonatate 100 mg oral capsule (4 sources) Non-narcotic Antitussive Start: 05-28-2022 End: 09-19-2024 take 2 capsules by mouth three times daily as needed for cough Benzonatate 100 mg capsule Discontinued 200 mg PO THREE TIMES A DAY as needed for cough May 28, 2022 1:00am September 19, 2024 9:33pm Start: 05-28-2022 take 200 mg by mouth three times daily Benzonatate Active 200 MG PO THREE TIMES A DAY May 28, 2022 12:00am ibuprofen 600 mg oral tablet (7 sources) Nonsteroidal Anti-inflammatory Drug Start: 02-25-2024 End: 09-19-2024 take 1 tablet by mouth every eight hours as needed for pain Ibuprofen 600 MG tablet Discontinued 600 mg PO Q8H as needed for Pain February 25, 2024 12:37am September 19, 2024 9:33pm Start: 10-05-2018 End: 02-25-2024 take 1 tablet by mouth every six hours as needed for pain Ibuprofen 600 MG tablet Discontinued 600 mg PO EVERY 6 HOURS NEEDED as needed for Pain October 05, 2018 12:00am February 25, 2024 12:37am LORazepam 0.5 mg oral tablet (4 sources) Benzodiazepine Start: 11-12-2016 End: 08-06-2023 LORazepam (ATIVAN) 0.5 mg tab Indications: Seizure disorder (HCC) To take when he thinks he is going to have a seizure. 15 tablet 0 11/12/2016 08/06/2023 Discontinued (Discontinued by another Health Care Provider) Comment on above: To take when he thin ks he is going to have a seizure. meloxicam 15 mg oral tablet (4 sources) Nonsteroidal Anti-inflammatory Drug Start: 08-29-2017 End: 08-06-2023 take 1 tablet by mouth once daily for pain meloxicam (MOBIC) 15 mg tablet Indications: Right elbow pain Take 1 tablet by mouth once daily. for pain. Take with food. 30 tablet 0 08/29/2017 08/06/2023 Discontinued (Discontinued by another Health Care Provider) Comment on above: Take 1 tablet by hien once daily. for pain. Take with food. methylPREDNISolone (4 sources) Corticosteroid Start: 08-29-2017 End: 08-06-2023 methylPREDNISolone (MEDROL DOSE-PACK) 4 mg Dose-Pack Indications: Right elbow pain As Instructed per package 1 Package 0 08/29/2017 08/06/2023 Discontinued (Discontinued by another Health Care Provider) Start: 08-29-2017 methylPREDNISo lone (MEDROL DOSE-PACK) 4 mg Dose-Pack Indications: Right elbow pain As Instructed per package 1 Package 0 08/29/2017 Active Comment on above: As Instructed per eric padilla predniSONE 20 mg oral tablet (2 sources) Start: 5 End: 5 take 3 tablets by mouth once daily Prednisone 20 mg tablet Discontinued 60 mg PO DAILY August 24, 2024 12:00am September 19, 2024 9:33pm Problems Active Problems Problem Classification Problem Date Documented Da te Episodic/Chronic Abdominal hernia (20 sources) Umbilical hernia; Translations: [Umbilical hernia without obstruction or gangrene] Onset: 2 Episodic Abdominal pain (20 sources) Abdominal pain; Translations: [Unspecified abdominal pain] Onset: 2 Episodic Allergic reactions (6 sources) Allergy status to other antibiotic agents status; Translations: [Allergy status to narcotic agent status] Onset: 2 Episodic Complication of device; implant or graft (10 sources) Infected hernioplasty mesh; Translations: [Infection and inflammatory reaction due to other internal prosthetic devices, implants and grafts, initial encounter] Onset: 4 07-04-2023 Episodic Complications of surgical procedures or medical care (20 sources) Postoperative hematoma formation; Translations: [Postoperative hematoma] 12-13-2021 Episodic E Codes: Fall (1 source) Fall from ladder; Translations: [Fall on and from ladder, initial encounter] 09-19-2024 Episodic E Codes: Fall (20 sources) Fall 09-05-2017 Epilepsy; convulsions (20 sources) Seizure; Translations: [Post traumatic seizures] Onset: 7 09-09-2013 Episodic Esophageal disorders (20 sources) Gastroesophageal reflux disease 09-09-2013 Chronic Fluid and electrolyte disorders (1 source) Hypo-osmolality and or hyponatremia; Translations: [Hypo-osmolality and hyponatremia] Onset: 3 Episodic Headache; including migraine (2 sources) Headache; including migraine; Translations: [Headache, unspecified] Onset: 2 Immunizations and screening for infectious disease (4 sources) Contact with and (suspected) exposure to other viral communicable diseases; Translations: [Contact with or suspected exposure to other viral communicable disease] 06-12-2023 Episodic Influenza (4 sources) Influenza due to Influenza A virus; Translations: [Influenza due to other identified influenza virus with other respiratory manifestations] 06-12-2023 Episodic Intestinal obstruction without hernia (1 source) Intestinal obstruction; Translations: [Ileus, unspecified] Onset: 3 Episodic Nausea and vomiting (1 source) Nausea and vomiting; Translations: [Nausea with vomiting, unspecified] Onset: 3 Episodic Other aftercare (2 sources) Other terminal gauger (current) drug therapy; Translations: [Other custodial (current) drug therapy] Onset: 2 Episodic Other bone disease and musculoskeletal deformities (1 source) Clavicle pain; Translations: [Other specified disorders of bone, shoulder] 09-19-2024 Episodic Other connective tissue disease (2 sources) Tendinitis of long head of biceps brachii of right shoulder; Translations: [Bicipital tendinitis, right shoulder] 08-24-2024 Episodic Other connective tissue disease (1 source) Bicipital tendinitis, right shoulder; Translations: [Bicipital tendinitis, right shoulder] Onset: 5 Episodic Other gastrointestinal disorders (1 source) Peritoneal adhesions (postprocedural) (postinfection); Translations: [Abdominal adhesions due to implanted mesh] Onset: 4 Episodic Other gastrointestinal disorders (2 sources) H/O: abdominal hernia; Translations: [Personal history of other diseases of the digestive system] 06-29-2024 Episodic Other injuries and conditions due to external causes (20 sources) Injury due to electrical exposure 01-14-2018 Episodic Other injuries and conditions due to external causes (3 sources) Traumatic AND/OR non-traumatic injury; Translations: [Other injury of unspecified body region, initial encounter] Onset: 2 Episodic Other injuries and conditions due to external causes (1 source) Hematoma; Translations: [Other injury of unspecified body region, initial encounter] Episodic Other injuries and conditions due to external causes (1 source) Closed injury of head; Translations: [Unspecified injury of head, initial encounter] Episodic Other injuries and conditions due to external causes (2 sources) Unspecified injury of head, initial encounter; Translations: [Unspecified injury of head, initial encounter] Onset: 2 Episodic Other injuries and conditions due to external causes (1 source) Injury of right wrist; Translations: [Unspecified injury of right wrist, hand and finger(s), initial encounter] Episodic Other injuries and conditions due to external causes (1 source) Unspecified injury of right wrist, hand and finger(s), initial encounter; Translations: [Unspecified injury of right wrist, hand and finger(s), initial encounter] Onset: 2 Episodic Other injuries and conditions due to external causes (2 sources) Injury of right shoulder; Translations: [Unspecified injury of right shoulder and upper arm, initial encounter] 08-24-2024 Episodic Other lower respiratory disease (1 source) Cough; Translations: [Cough, unspecified] Onset: 2 Episodic Other nervous system disorders (6 sources) Postoperative pain ; Translations: [Other acute postprocedural pain] Onset: 3 Episodic Other non-traumatic joint disorders (1 source) Shoulder pain; Translations: [Pain in right shoulder] Episodic Other non-traumatic joint disorders (2 sources) Pain in right shoulder; Translations: [Pain in right shoulder] Onset: 2 Episodic Other nutritional; endocrine; and metabolic disorders (5 sources) Morbid obesity; Translations: [Morbid (severe) obesity due to excess calories] Onset: 4 09-16-2023 Chronic Other nutritional; endocrine; and metabolic disorders (1 source) Morbid (severe) obesity due to excess calories; Translations: [Morbid obesity (HCC)] Onset: 4 Chronic Other screening for suspected conditions (not mental disorders or infectious disease) (2 sources) Abnormal findings on diagnostic imaging of other abdominal regions, including retroperitoneum; Translations: [Abnormal findings on diagnostic imaging of other abdominal regions, including retroperitoneum] Onset: 2 Episodic Other upper respiratory infections (2 sources) Chronic pansinusitis; Translations: [Chronic pansinusitis] Onset: 2 Chronic Other upper respiratory infections (1 source) Acute upper respiratory infection; Translations: [Acute upper respiratory infection, unspecified] Onset: 2 Episodic Poisoning by nonmedicinal substances (1 source) Toxic effect of venom of other arthropod, accidental (unintentional), subsequent encounter; Translations: [Toxic effect of venom of other arthropod, accidental (unintentional), subsequent encounter] Onset: 3 Episodic Residual codes; unclassified (3 sources) Family history of cancer of colon 08-20-2023 Episodic Residual codes; unclassified (5 sources) Tobacco use and exposure - finding; Translations: [Tobacco use] Onset: 4 09-16-2023 Episodic Residual codes; unclassified (1 source) Tobacco use; Translations: [Tobacco use] Onset: 4 Episodic Sprains and strains (18 sources) Strain of knee; Translations: [Strain of unspecified muscle(s) and tendon(s) at lower leg level, left leg, initial encounter] Onset: 2 Episodic Substance-related disorders (2 sources) Nicotine dependence, unspecified, uncomplicated; Translations: [Nicotine dependence, unspecified, uncomplicated] Onset: 2 Chronic Superficial injury; contusion (7 sources) Contusion of knee; Translations: [Contusion of left knee, initial encounter] Onset: 3 Episodic Transient cerebral ischemia (20 sources) Transient cerebral ischemia 08-10-2013 Chronic Unclassified (1 source) Unknown / UNK(Unknown) Onset: 7 Unclassified (20 sources) Patient encounter status 11-23-2021 Unclassified (1 source) Face and Hand Swelling Onset: 3 Past or Other Problems Problem Classification Problem Date Documented Date Episodic/Chronic Intracranial injury (20 sources) Intracranial hemorrhage following injury with open intracranial wound AND no loss of consciousness Onset: 06-16-2003 11-18-2013 Episodic Unclassified (1 source) HERNIA//HERNIA, UMBILICAL Onset: 12-16-2016 Results Test Name Value Interpretation Reference Range Facility [facility] [address], [place] [id number] [facility] MR#: [id number] Acct: [id number] Name: PATRICK KOROMA Rep #: [id number] : 1980 M 44 From: Kalli Tena DO PCP: ERIC Anaya Status: REG ER Study: Clavicle Date of Exam: 09/19/24 Exam# [id number] Ordering Dr: Brian Maldonado MD PROCEDURE: CLAVICLE 09/19/2024 REASON FOR EXAM: TRAUMA TECHNIQUE: Two views of the right clavicle were obtained COMPARISON: None FINDINGS: Bones: No acute fracture. Joints: Joint spaces are preserved. Soft tissues: No soft tissue abnormality. RAD/Clavicle IMPRESSION: NO EVIDENCE OF CLAVICLE FRACTURE Reading Location: [place] CC: ERIC Starkey; Dr. Brian Maldonado MD Advertising Assistant Manager: Signed [facility] Emergency Department Summary on 09-19-2024 Emergency Department Summary [facility] Medical Records Department [address] [place] [address] Emergency Department Summary 09/19/24 MR#: [id number] Acct: [id number] Name: PATRICK KOROMA Rep #: [id number] : 1980 44 From: Brian Maldonado MD PCP: ERIC Anaya Status:REG ER Location: ED HPI History of Present Illness Chief Complaint: Upper Extremity Injury Narrative Narrative: 44-year-old male, yvfey-zuoo-lodwxntx, presents with injury to his right shoulder and clavicle that he sustained on Friday, 5 days ago. He relates history that he was seen a few weeks ago and was having shoulder pain previously. He was seen in the emergency department and prescribed a medication for tendinitis which has not been helping. He was on a forefoot stepladder when he was trying to get down and missed a stair, and landed on his right shoulder. While he may have hit his head and fell onto his right side, he denies any loss of consciousness or any other injury. He has been having pain in his right shoulder and right clavicle ever since. Pain is worse with movement and when he tries to raise his right arm. Denies other injuries. [facility] Medical History Seroma after procedure Influenza due to influenza virus, type A, human Contact with or suspected exposure to other viral communicable disease Abdominal pain Sprain of left foot Left ankle sprain Strain of left knee Contusion of left knee Seizures Home Medications ???Medication ???Instructions ???Recorded ???Last Taken ???Type NK 09/19/24 Unknown History Allergy/AdvReac Type Severity Reaction Status Date / Time adhesive tape Allergy Hives Verified 09/19/24 21:19 cephalexin monohydrate (From Allergy Anaphylaxis Verified 09/19/24 21:19 Keflex) levetiracetam (From Keppra) Allergy Hives Verified 09/19/24 21:19 morphine Allergy Shortness Verified 09/19/24 21:19 of breath naproxen (From Naprosyn) Allergy Hives Verified 09/19/24 21:19 Family History Grandmother Arthritis Mother Arthritis Seizures Father Colon cancer Diabetes Brother Heart disease Surgical History H/O hernia repair History of appendectomy Social History household members: spouse Smoking Status: Current every day smoker tobacco type: cigarettes alcohol intake: never ROS ROS ED ROS Narrative Systems positive for right clavicle and shoulder pain worse with movement. Zqtun-fmed-mkwaucnf. Denies hitting of his head or loss of consciousness, no other injury. No elbow pain. EXAM Physical Exam Narrative Exam Narrative: GCS 15. ABCs intact. Afebrile. Vital signs noted. Cardiovascular examination reveals mild tachycardia at 106 bpm. Lungs clear to auscultation bilaterally. Abdomen soft and nontender with positive bowel sounds. Inspection of the right shoulder reveals mild tenderness to palpation in the right clavicle and diffusely in the right shoulder but also in the right AC joint. No clinical dislocation. Able to raise arm to approximately 30 degrees but then experiences pain. Neurovascular intact distally. Able to flex and extend elbow without difficulty on the right. Palpable radial pulse. Uninjured at elbow and below. Const Vital Signs: 09/19/24 21:16 Temperature 97.1 F L Temperature Source Temporal Pulse Rate 106 H Respiratory Rate 17 Blood Pressure 153/89 H Blood Pressure Mean 110 Pulse Ox 100 Oxygen Delivery Method Room Air MDM MDM MDM Narrative Medical decision making narrative: Differential diagnosis includes but not limited to right shoulder contusion versus clavicle contusion versus fracture versus proximal humeral fracture versus AC joint separation. Patient was given 1 Tynan tablet here for analgesia and x-rays obtained of the right clavicle and of the right shoulder. On my independent interpretation of the right clavicle x-ray, there is no evidence of an acute fracture. I reviewed the radiology report which confirms my independent interpretation. Additionally, I interpreted the right shoulder x-ray and see no evidence of acute fracture or dislocation. I reviewed the radiology report which also confirms my independent interpretation. At this point in time, he will be given a sling for comfort. He was told to exercise his right shoulder a few times a day and not use the sling all the time to prevent adhesive capsulitis. He was referred to orthopedics for follow-up in 1 week if not improving. I feel he can take hmob-lij-nittayy medications for analgesia. Return instructions to the emergency department were reviewed. Disposition is discharged home in stable condition. History Recor (more content not included)... [facility] Shoulder min 2 Viewson 09-19 Shoulder min 2 Views [facility] Imaging Services [address] [place] [address] Shoulder min 2 Views MR#: [id number] Acct: [id number] Name: PATRICK KOROMA Rep #: [id number] : 1980 M 44 From: Kalli Tena DO PCP: ERIC Anaya Status: REG ER Study: Shoulder min 2 Views Date of Exam: 09/19/24 Exam# [id number] Ordering Dr: Brian Maldonado MD PROCEDURE: SHOULDER MIN 2 VIEWS 09/19/2024 REASON FOR EXAM: TRAUMA TECHNIQUE: 4 view(s) of the right shoulder COMPARISON: None FINDINGS: Bones: No acute fracture. Joints: Normal alignment of the acromioclavicular and glenohumeral joints. Soft tissues: Soft tissues are unremarkable. Other: RAD/Shoulder min 2 Views IMPRESSION: NO ACUTE FRACTURE OR DISLOCATION. Reading Location: [facility] CC: TICKET MARKER-C Viola Starkey; Dr. Brian Maldonado MD Advertising Assistant Manager: Signed [facility] .Auto Diffon 09-08-2024 Basophil, Absolute 0.1 10 3/mcL Normal 0.0-0.2 [facility] Comment on above: Performed By: #### A DIFF, CMP, CBC, LIPID, GFR, ANEU #### [address] [address] Basophils/100 WBC (Bld) 1.0 % Normal 0.0-2.5 [facility] Comment on above: Performed By: #### A DIFF, CMP, CBC, LIPID, GFR, ANEU #### [address] [address] Eosinophil, Absolute 0.1 10 3/mcL Normal 0.0-0.7 [facility] Comment on above: Performed By: #### A DIFF, CMP, CBC, LIPID, GFR, ANEU #### [address] [address] Eosinophils/100 WBC (Bld) 0.8 % Normal 0.0-7.0 [facility] Comment on above: Performed By: #### A DIFF, CMP, CBC, LIPID, GFR, ANEU #### [address] [address] Lymphocyte, Absolute 2.2 10 3/mcL Normal 0.9-4.3 [facility] Comment on above: Performed By: #### A DIFF, CMP, CBC, LIPID, GFR, ANEU #### [address] [address] Lymphocytes/100 WBC (Bld) 17.9 % Low 20.0-40.0 [facility] Comment on above: Performed By: #### A DIFF, CMP, CBC, LIPID, GFR, ANEU #### [address] [address] Monocyte, Absolute 0.8 10 3/mcL Normal 0.1-1.4 [facility] Comment on above: Performed By: #### A DIFF, CMP, CBC, LIPID, GFR, ANEU #### [address] [address] Monocytes/100 WBC (Bld) 6.5 % Normal 2.0-13.0 [facility] Comment on above: Performed By: #### A DIFF, CMP, CBC, LIPID, GFR, ANEU #### [address] [address] Neutrophils/100 WBC (Bld) 73.8 % Normal 50.0-75.0 [facility] Comment on above: Performed By: #### A DIFF, CMP, CBC, LIPID, GFR, ANEU #### [address] [address] .GFRon 09-08-2024 Estimated Glomerular Filtration Rate 99 ml/min/1.73sqm Normal [facility] Comment on above: Result Comment: Stages of Chronic Kidney Disease (CKD) Stage Description eGFR(ml/min/1.73 sq.m.) CKD 1 Normal kidney function or >=90 normal kindney function with possible kidney damage (ex. Proteinuria) CKD 2 Kidney damage with mild loss 60-89 of kidney function CKD 3a Mild to moderate loss of kidney 45-59 function CKD 3b Moderate to severe loss of 30-44 of kindey function CKD 4 Severe loss of kidney function 15-29 CKD 5 Kidney failure <15 Note: (go live 2024) the eGFR calculation was updated to the 2020 CKD-EPI creatinine equation without a race factor to calculate the eGFR results. Performed By: #### A DIFF, CMP, CBC, LIPID, GFR, ANEU #### [address] [address] .NEUABSon 09-08-2024 Neutrophil, Absolute 9.2 10 3/mcL High 2.3-8.1 [facility] Comment on above: Performed By: #### A DIFF, CMP, CBC, LIPID, GFR, ANEU #### [address] [address] CBCon 09-08-2024 Erythrocyte distribution width (RBC) [Ratio] 13.3 % Normal 11.5-15.5 [facility] Comment on above: Performed By: #### A DIFF, CMP, CBC, LIPID, GFR, ANEU #### [address] [address] Hematocrit (Bld) [Volume fraction] 45.6 % Normal 40.0-52.0 [facility] Comment on above: Performed By: #### A DIFF, CMP, CBC, LIPID, GFR, ANEU #### [address] [address] Hgb 15.3 G/dL Normal 13.0-17.5 [facility] Comment on above: Performed By: #### A DIFF, CMP, CBC, LIPID, GFR, ANEU #### [address] [address] MCH (RBC) [Entitic mass] 31.0 pg Normal 27.0-33.0 [facility] Comment on above: Performed By: #### A DIFF, CMP, CBC, LIPID, GFR, ANEU #### [place] [address] MCHC 33.5 G/dL Normal 32.0-36.0 [facility] Comment on above: Performed By: #### A DIFF, CMP, CBC, LIPID, GFR, ANEU #### [place] [address] MCV (RBC) [Entitic vol] 92.3 fL Normal 81.0-100.0 [facility] Comment on above: Performed By: #### A DIFF, CMP, CBC, LIPID, GFR, ANEU #### [place] [address] Platelet 297 10 3/mcL Normal 150-450 [facility] Comment on above: Performed By: #### A DIFF, CMP, CBC, LIPID, GFR, ANEU #### [place] [address] Platelet mean volume (Bld) [Entitic vol] 8.0 fL Normal 6.4-10.5 [facility] Comment on above: Performed By: #### A DIFF, CMP, CBC, LIPID, GFR, ANEU #### [place] [address] RBC 4.94 10 6/mcL Normal 4.50-6.00 [facility] Comment on above: Performed By: #### A DIFF, CMP, CBC, LIPID, GFR, ANEU #### [place] [address] WBC 12.5 10 3/mcL High 4.5-10.8 [facility] Comment on above: Performed By: #### A DIFF, CMP, CBC, LIPID, GFR, ANEU #### [address] [address] CMPon 09-08-2024 Albumin Level 3.7 G/dL Normal 3.5-5.0 [facility] Comment on above: Performed By: #### A DIFF, CMP, CBC, LIPID, GFR, ANEU #### [place] [id number] Albumin/Globulin [Mass ratio] 0.9 {ratio} Low 1.1-2.5 [facility] Comment on above: Performed By: #### A DIFF, CMP, CBC, LIPID, GFR, ANEU #### [place] [id number] ALP [Catalytic activity/Vol] 51 U/L Normal 40-135 [facility] Comment on above: Performed By: #### A DIFF, CMP, CBC, LIPID, GFR, ANEU #### [place] [id number] ALT [Catalytic activity/Vol] 17 U/L Normal 16-63 [facility] Comment on above: Performed By: #### A DIFF, CMP, CBC, LIPID, GFR, ANEU #### [place] [id number] AST [Catalytic activity/Vol] 15 U/L Normal 10-40 [facility] Comment on above: Performed By: #### A DIFF, CMP, CBC, LIPID, GFR, ANEU #### [address] [address] Bili Total 0.2 mg/dL Normal 0.2-1.0 [facility] Comment on above: Result Comment: Use of this assay is not recommended for patients undergoing treatment with eltrombopag due to the potential for falsely elevated results. Performed By: #### A DIFF, CMP, CBC, LIPID, GFR, ANEU #### [place] [id number] BUN/Creatinine Ratio 11 ratio Normal 7-27 [facility] Comment on above: Performed By: #### A DIFF, CMP, CBC, LIPID, GFR, ANEU #### [address] [address] Calcium [Mass/Vol] 9.7 mg/dL Normal 8.4-10.2 [facility] Comment on above: Performed By: #### A DIFF, CMP, CBC, LIPID, GFR, ANEU #### [address] [address] Chloride [Moles/Vol] 99 mmol/L Normal 98-107 [facility] Comment on above: Performed By: #### A DIFF, CMP, CBC, LIPID, GFR, ANEU #### [address] [address] CO2 [Moles/Vol] 27 mmol/L Normal 22-29 [facility] Comment on above: Performed By: #### A DIFF, CMP, CBC, LIPID, GFR, ANEU #### [address] [address] Creatinine [Mass/Vol] 0.96 mg/dL Normal 0.70-1.30 [facility] Comment on above: Result Comment: Test ing performed on Siemens Dimension EXL analyzer using a modified kinetic Elyse technique. Performed By: #### A DIFF, CMP, CBC, LIPID, GFR, ANEU #### [address] [address] Electrolyte Balance 8.0 mEq/L Normal 4.0-15.0 [facility] Comment on above: Performed By: #### A DIFF, CMP, CBC, LIPID, GFR, ANEU #### [address] [address] Globulin 4.0 G/dL High 1.5-3.8 [facility] Comment on above: Performed By: #### A DIFF, CMP, CBC, LIPID, GFR, ANEU #### [address] [address] Glucose [Mass/Vol] 91 mg/dL Normal 70-105 [facility] Comment on above: Performed By: #### A DIFF, CMP, CBC, LIPID, GFR, ANEU #### [address] [address] Potassium [Moles/Vol] 4.4 mmol/L Normal 3.5-5.1 [facility] Comment on above: Performed By: #### A DIFF, CMP, CBC, LIPID, GFR, ANEU #### [address] [address] Sodium [Moles/Vol] 134 mmol/L Low 136-145 [facility] Comment on above: Performed By: #### A DIFF, CMP, CBC, LIPID, GFR, ANEU #### [address] [address] Total Protein 7.7 G/dL Normal 6.4-8.2 [facility] Comment on above: Performed By: #### A DIFF, CMP, CBC, LIPID, GFR, ANEU #### [address] [address] Urea nitrogen [Mass/Vol] 11 mg/dL Normal 7-18 [facility] Comment on above: Performed By: #### A DIFF, CMP, CBC, LIPID, GFR, ANEU #### [address] [address] LIPIDon 09-08-2024 Cholesterol [Mass/Vol] 177 mg/dL Normal 0-200 [facility] Comment on above: Result Comment: Chol esterol Reference Interval: Less than 200 Desirable 200-239 Borderline high risk 240 and above High risk Performed By: #### A DIFF, CMP, CBC, LIPID, GFR, ANEU #### [address] [address] Cholesterol in HDL [Mass/Vol] 44 mg/dL Normal 40-60 [facility] Comment on above: Performed By: #### A DIFF, CMP, CBC, LIPID, GFR, ANEU #### [address] [address] Cholesterol in LDL [Mass/Vol] 108 mg/dL Normal 0-130 [facility] Comment on above: Performed By: #### A DIFF, CMP, CBC, LIPID, GFR, ANEU #### [facility] [address] [place], [place] [address] Triglyceride [Mass/Vol] 125 mg/dL Normal 0-150 [facility] Comment on above: Result Comment: Trig lyceride Reference Interval: Less than 150 Normal 150-199 Borderline high risk 200-499 High risk 500 or higher Very high risk Performed By: #### A DIFF, CMP, CBC, LIPID, GFR, ANEU #### [facility] [address] [place], [place] [address] XR FOOT MINIMUM 3 VIEWS LEFT on 09-08-2024 XR FOOT MINIMUM 3 VIEWS LEFT ORIGINAL EXAMINATION: THREE XRAY VIEWS OF THE LEFT FOOT 09/07/2024 11:50 pm COMPARISON: None. HISTORY: ORDERING SYSTEM PROVIDED HISTORY: Reason for Exam: nail in foot, removed FINDINGS: No acute fracture or dislocation. Along the plantar surface of the midfoot approximately 1.5 mm from the skin surface there is a 1 mm linear radiodensity seen only on the lateral view. Minor degenerative changes are seen throughout the interphalangeal joints and dorsal midfoot. Calcaneal enthesopathy. IMPRESSION: No acute fracture or dislocation. 1 mm radiodensity along the plantar surface of the mid foot suspicious for retained foreign body versus skin debris. Correlate with site of removal. I have personally reviewed the images of this examination and agree with the resident's findings and interpretation. Interpreted by: Jeremie Koehler MD Preliminary Report By: Nohemi Lamas Electronically signed By Jeremie Koehler MD Dictated Date: 09/08/2024 12:47:00 AM Prelim Date: 09/08/2024 12:51:00 AM Sign Date: 09/08/2024 12:53:40 AM Ordering Provider: SHANIKA TIRADO [facility] Emergency Department Summary on 08-24-2024 Emergency Department Summary [facility] Medical Records Department [address] [place] [address] Emergency Department Summary 08/24/24 MR#: [id number] Acct: [id number] Name: PATRICK KOROMA Rep #: [id number] : 1980 44 From: Cristian Tate PCP: Care Physician,No Primary Status:DEP ER Location: ED HPI History of Present Illness Chief Complaint: Upper Extremity Injury Informant: patient Narrative Narrative: Yhcol-pfyf-sjidnhbl male presents right shoulder injury 2 hours prior to arrival. He was removing luggage from a box truck pushing down and felt pop in his shoulder. No other injuries. Pain with movement the shoulder. Uses ibuprofen for his knee, does take is not helping his symptoms. Not diabetic. No history injuries right shoulder. Has had left shoulder pain in the past. No surgical intervention. Prior similar symptoms: Yes PFSH PFSH Medical History Seroma after procedure Influenza due to influenza virus, type A, human Contact with or suspected exposure to other viral communicable disease Abdominal pain Sprain of left foot Left ankle sprain Strain of left knee Contusion of left knee Seizures Home Medications ???Medication ???Instructions ???Recorded ???Last Taken ???Type gabapentin 600 mg tablet 300 mg PO TID 10/27/16 09/25/18 Hi story carbamazepine 200 mg tablet 600 mg PO BID 04/01/18 09/25/18 Hi story hydrocodone-acetamino phen 5-325mg 1 tab PO Q6H PRN pain 3 days #10 01/01/22 Unknown Rx 5mg-325mg tabs benzonatate 100 mg capsule 200 mg (2 x 100 mg) PO TID PRN Unknown Rx cough #30 caps hydrocodone-acetamino phen 5-325mg 1 tab PO Q6H PRN PRN Pain 3 days 06/01/23 Unknown Rx 5mg-325mg #10 TABLETS hydrocodone-acetamino phen 5-325mg 1 tab PO Q6H PRN PRN Pain 3 days 07/03/23 Unknown Rx 5mg-325mg #12 TABLETS ibuprofen 600 mg tablet 600 mg PO Q8H PRN Pain #15 tabs Unknown Rx prednisone 20 mg tablet 60 mg (3 x 20 mg) PO DAILY #12 05/10 Unknown Rx TABLETS Allergy/AdvReac Type Severity Reaction Status Date / Time adhesive tape Allergy Hives Verified 08/24/24 21:04 cephalexin monohydrate (From Allergy Anaphylaxis Verified 08/24/24 21:04 Keflex) levetiracetam (From Keppra) Allergy Hives Verified 08/24/24 21:04 morphine Allergy Shortness Verified 08/24/24 21:04 of breath naproxen (From Naprosyn) Allergy Hives Verified 08/24/24 21:04 Family History Grandmother Arthritis Mother Arthritis Seizures Father Colon cancer Diabetes Brother Heart disease Surgical History H/O hernia repair History of appendectomy Social History household members: spouse Smoking Status: Current every day smoker tobacco type: cigarettes alcohol intake: never ROS ROS ED Constitutional Constitutional ED: Denies fever(s) Cardiovascular Cardiovascular: Denies chest pain Respiratory/Chest Respiratory/Chest: Denies cough Gastrointestinal Gastrointestinal: Denies diarrhea, nausea or vomiting Musculoskeletal Musculoskeletal: Reports extremity pain; Denies back pain or neck pain Neurologic Neurologic: Denies headache(s) or paresthesias EXAM Physical Exam Const Vital Signs: 08/24/24 21:04 Temperature 97.3 F L Temperature Source Temporal Pulse Rate 108 H Respiratory Rate 18 Blood Pressure 142/98 H Blood Pressure Mean 112 Pulse Ox 98 Oxygen Delivery Method Room Air Positive well nourished and well developed General Appearance ED: well developed and NAD HEENT Reports moist mucous membranes normocephalic and atraumatic Eyes General Eye ED: Yes normal appearance of both eyes Neck full ROM Chest Wall Chest: Negative for tenderness Resp normal respiratory effort and normal air movement Effort and Inspection: symmetric chest movement; Negative for respiratory distress Cardio regular rate, regular rhythm and no murmurs Peripheral Pulses: pulses 2+ throughout GI normal to inspection, nondistended, normoactive bowel sounds and non-tender Palpation: Negative for guarding or rebound tenderness present Extremity Extremity Narrative: Right upper extremity no clavicle tenderness no cream clavicular tenderness. No deformity of the shoulder. Negative empty can. Positive speeds test. Able to flex his elbow with no difficulties. Soft compartments. Neuro vas intact distally. General Extremety ED: Yes tenderness; Negative for edema General Extremity: Negative for edema Neuro oriented x3 and no sensory deficits noted Sensorium / Orientation: awake and alert Skin no rashes or lesions noted and no wounds MDM MDM MDM Narrative Medical decision (more content not included)... Normal [facility] Shoulder min 2 Viewson 08-24 Shoulder min 2 Views [facility] Imaging Services [address] [place], [place] [address] Shoulder min 2 Views MR#: [id number] Acct: [id number] Name: PATRICK KOROMA Rep #: [id number] : 1980 M 44 From: Ke Mario PCP: Care Physician,No Primary Status: PRE ER Study: Shoulder min 2 Views Date of Exam: 08/24/24 Exam# [id number] Ordering Dr: Provider,Ed P. PROCEDURE: Right shoulder radiographs REASON FOR EXAM: PAIN, LOSS OF MOBILITY TECHNIQUE: Four views of the right shoulder COMPARISON: None. FINDINGS: See impression RAD/Shoulder min 2 Views IMPRESSION: Negative for acute fracture or malalignment. 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 Mild acromioclavicular joint osteoarthritis. Reading Location: [facility] CC: ED PHYSICIAN PROVIDER; No Primary Care Physician Advertising Assistant Manager: Signed Normal [facility] Study Interpretation of outs [place]usta studyon 06-29-2024 Outside images for comparison or treatment purposes, not interpreted by Radiologists. IMAGING CT ABDOMEN/PELVIS W/O CONTRA STon 05-16-2024 CT ABDOMEN/PELVIS W/O CONTRAST ORIGINAL EXAMINATION: CT OF THE ABDOMEN AND PELVIS WITHOUT CONTRAST 05/16/2024 10:16 pm TECHNIQUE: CT of the abdomen and pelvis was performed without the administration of intravenous contrast. Multiplanar reformatted images are provided for review. Automated exposure control, iterative reconstruction, and/or weight based adjustment of the mA/kV was utilized to reduce the radiation dose to as low as reasonably achievable. COMPARISON: CT abdomen pelvis June 28, 2023 HISTORY: ORDERING SYSTEM PROVIDED HISTORY: Reason for Exam: mid to left abd pain. history of hernia repair 2022. pain is where hernia repair was in umbilical area and to the left pain FINDINGS: Lower Chest: No focal consolidation. Organs: No acute findings. No hydronephrosis or hydroureter. No radiopaque stones. GI/Bowel: No bowel obstruction, pneumoperitoneum, or ascites. Pelvis: Unremarkable. Peritoneum/Retroperit oneum: Nonaneurysmal abdominal aorta with scattered atherosclerotic plaque. No enlarged lymph nodes. Bones/Soft Tissues: Degenerative change of the spine. Increased size to fat containing anterior abdominal wall hernia, now measuring up to 11.1 x 3.1 cm in the axial plane (series 2, image 73) and 8.7 cm cranio caudally, with the neck measuring 4.1 cm in the axial plane and 4.6 cm in the sagittal plane. Anterior abdominal wall postsurgical change. IMPRESSION: Increased size to fat containing anterior abdominal hernia. Interpreted by: Wang Francisco Preliminary Report By: Wang Francisco Electronically signed By Wang Francisco Dictated Date: 05/16/2024 10:21:40 PM Prelim Date: 05/16/2024 10:27:09 PM Sign Date: 05/16/2024 10:27:09 PM Ordering Provider: RADHA Nelson [facility] Emergency Department Summary on 02-24-2024 Emergency Department Summary [facility] Medical Records Department [address] [place] [address] Emergency Department Summary 02/24/24 MR#: [id number] Acct: [id number] Name: PATRICK KOROMA Rep #: [id number] : 1980 44 From: Guevara Choi MD PCP: Care Physician,No Primary Status:[facility] ER Location: ED HPI History of Present Illness Chief Complaint: Lower Extremity Injury Informant: patient Narrative Narrative: Patient was working at the local [employer], he jumped down off of an elevated surface landing on his feet, with sudden onset of pain followed by swelling in the left midfoot. He did not twist anything. Denies any ankle pain. To bear weight but hurts. Denies any pain or injury elsewhere. [facility] Medical History Seroma after procedure Influenza due to influenza virus, type A, human Contact with or suspected exposure to other viral communicable disease Abdominal pain Sprain of left foot Left ankle sprain Strain of left knee Contusion of left knee Seizures Home Medications ???Medication ???Instructions ???Recorded ???Last Taken ???Type gabapentin 600 mg tablet 300 mg PO TID 10/27/16 09/25/18 History carbamazepine 200 mg tablet 600 mg PO BID 04/01/18 09/25/18 History hydrocodone-acetamino phen 5-325mg 1 tab PO Q6H PRN pain 3 days #10 01/01/22 Unknown Rx 5mg-325mg tabs benzonatate 100 mg capsule 200 mg (2 x 100 mg) PO TID PRN 05/28/22 Unknown Rx cough #30 caps hydrocodone-acetamino phen 5-325mg 1 tab PO Q6H PRN PRN Pain 3 days 06/01/23 Unknown Rx 5mg-325mg #10 TABLETS hydrocodone-acetamino phen 5-325mg 1 tab PO Q6H PRN PRN Pain 3 days 07/03/23 Unknown Rx 5mg-325mg #12 TABLETS ibuprofen 600 mg tablet 600 mg PO Q8H PRN Pain #15 tabs 02/25/24 Unknown Rx Allergy/AdvReac Type Severity Reaction Status Date / Time adhesive tape Allergy Hives Verified 02/24/24 23:06 cephalexin monohydrate (From Allergy Anaphylaxis Verified 02/24/24 23:06 Keflex) levetiracetam (From Keppra) Allergy Hives Verified 02/24/24 23:06 morphine Allergy Shortness Verified 02/24/24 23:06 of breath naproxen (From Naprosyn) Allergy Hives Verified 02/24/24 23:06 Family History Grandmother Arthritis Mother Arthritis Seizures Father Colon cancer Diabetes Brother Heart disease Surgical History H/O hernia repair History of appendectomy Social History household members: spouse Smoking Status: Current every day smoker tobacco type: cigarettes alcohol intake: never ROS ROS ED Constitutional Constitutional ED: Denies chills or fever(s) Musculoskeletal Musculoskeletal: Reports extremity pain; Denies neck pain Integumentary Denies Abrasions, rash or wounds Neurologic Neurologic: Denies paresthesias or weakness EXAM Physical Exam Const Vital Signs: 02/24/24 23:06 02/25/24 00:46 Temperature 97.6 F L 97 F L Temperature Source Temporal Pulse Rate 110 H 81 Respiratory Rate 16 16 Blood Pressure 160/92 H 139/74 H Blood Pressure Mean 114 95 Pulse Ox 97 99 Oxygen Delivery Method Room Air Positive well nourished and well developed General Appearance ED: well developed and NAD Neck full ROM and supple Back/Spine normal ROM and normal to inspection Extremity Extremity Narrative: Tenderness and mild swelling diffusely left dorsal midfoot. No tenderness at the fifth metatarsal. No tenderness in the other metatarsals or toes. No calcaneus or ankle malleolus tenderness. Neurovascular intact distally. No deformities. Neuro oriented x3, no focal motor deficits and no sensory deficits noted Sensorium / Orientation: alert Psych mental status grossly normal and thought process normal Skin no wounds Rashes: no rashes MDM MDM MDM Narrative Medical decision making narrative: Three-view x-ray series of the left foot were obtained and on my interpretation there are bone spurs and arthritis but I see no acute fracture or dislocation. Radiology in agreement. Patient reassured given anti-inflammatories and a postop shoe to use as needed, if he does not have improvement in a week he can follow-up with podiatry to whom he will be referred. Radiography Diagnostic Testing: Clinical Impression(s) from Imaging Studies Foot X-Ray 02/24/24 23:23 IMPRESSION: There is no evidence of fracture. Electronically Signed: Vineet Yo MD at 0:12 EDT Reading Location ID and State: [facility] / MD Tel , Service support , Discharge Plan Triage Chief Complaint: Lower Extremity Injury ED Provider: Guevara Choi Dx/ (more content not included)... Normal [facility] Foot min 3 Viewson 4 Foot min 3 Views [facility] Imaging Services [address] [place], [place] [id number] Foot min 3 Views MR#: [id number] Acct: [id number] Name: PATRICK KOROMA Rep #: [id number] : 1980 M 44 From: Vineet Segura PCP: Care Physician,No Primary Status: REG ER Study: Foot min 3 Views Date of Exam: 02/24/24 Exam# [id number] Ordering Dr: Guevara Choi MD [id number] INDICATION: injury EXAMINATION/TECHNIQUE : X-RAY - LEFT XR Foot Min 3 Views 3 VIEWS COMPARISON: No relevant prior comparison study available __ FINDINGS: SOFT TISSUES: No soft tissue swelling or gas. No radiopaque foreign body. 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 No sclerotic or destructive changes observed. RAD/Foot min 3 Views IMPRESSION: There is no evidence of fracture. Electronically Signed: Vineet Yo MD at 0:12 EDT , CC: Dr. Guevara Choi MD; No Primary Care Physician Advertising Assistant Manager: Signed Normal [facility] CNCOon 10-21-2023 CNCO Letter Text Normal [facility] CNPNon 10-10-2023 CNPN Telephone (SPNSMN) PATRICK KOROMA ([id number]) 1980 M Date Time Provider Department 10/10/23 JULIOCESAR BORRERO NSWI During your visit today, we recorded the following information about you: Christy Rodrigez RN 10/10/2023 11:07 AM Signed Neuro SPINE CARE COORDINATION QUICK NOTE Dr. Borrero received referral from Dr. Richardson. Ordered placed for spine med injection with Dr. Hannah. Called patient to advise. Received VM message 'calling restrictions that have prevented the completion of the call' MYC message sent. Christy Rodrigez, [employer] Nurse Inspector [employer] Christy Rodrigez RN 10/21/2023 10:47 AM Signed Neuro SPINE CARE COORDINATION QUICK NOTE No return call from patient, MYC message not read. 2nd attempt made to reach patient from F phone number. Received message 'calling restrictions that have prevented the completion of the call' Letter sent to patient. Dr. Borrero received referral from Dr. Richardson. Ordered placed for spine med injection with Dr. Hannah. Christy Rodrigez RN BSN Nurse Inspector [employer] Allergies As of Date: 10/10/2023 Noted Allergy Reaction ADHESIVE TAPE-SILICONES 10/23/2016 4 - Hives KEFLEX (CEPHALEXIN) 11/12/2016 4 - Hives KEPPRA (LEVETIRACETAM) 10/23/2016 4 - Hives MORPHINE 10/23/2016 10 - Anaphylaxis NAPROXEN 07/08/2017 4 - Hives Date Reviewed: 10/07/2023 Reviewed by: Britney Juarez RN - Fully Assessed Reason for Visit: Care Coordination [3491] Prescriptions as of 11/04/2023 - gabapentin (NEURONTIN) 300 mg capsule Take 1 capsule by mouth three times a day for 90 days. 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.*10/07/2023 Encounter Status:Closed by CHRISTY RODRIGEZ on 11/04/23 Normal [facility] CONFIRM BLOOD TYPEon 024 ABO B Normal [facility] Comment on above: Order Comment: Speci men Type: BLOOD SPECIMEN Ordering Facility: [facility] Address: [address] [place] [address] Performed By: #### C ONABO #### [facility] CLIA [id number] [address] [place] [address] [place] [address] [place] Rh Nom (Bld) Positive Normal [facility] Comment on above: Order Comment: Speci men Type: BLOOD SPECIMEN Ordering Facility: [facility] Address: [address] [place] [address] Performed By: #### C ONABO #### [facility] CLIA [id number] [address] [place] [address] [place] NURSING PROGon 10-07-2023 NURSING PROG HNO ID: [id number] Author: LESLIE JARRETT RN Service: ? Author Type: Registered Nurse Type: Nursing Progress Note Filed: 10/07/2023 13:02 Note Text: Nursing Progress Note Topic of Note: Incidental PATIENT NAME: Patrick Koroma Patient Location: Main - Periop OR/Main - Periop OR Room: Main - Periop OR ([id number]) Dr. Richardson came to see patient at bedside and discussed surgical procedure and risks/benefits. Patient and surgeon agreed to cancel surgery and proceed a different route. This note was completed by: Leslie Jarrett RN Normal [facility] CBC W Auto Differential pane l (Bld)on 09-16-2023 Basophils (Bld) [#/Vol] 0.06 10*3/uL Normal <0.11 [facility] Comment on above: Order Comment: Speci men Type: BLOOD SPECIMEN Ordering Facility: [facility] Address: [address] [place] [address] Performed By: #### C ONABO #### [facility] CLIA [id number] [address] [place] [address] [place] Basophils/100 WBC (Bld) 0.6 % Normal [facility] Comment on above: Order Comment: Speci men Type: BLOOD SPECIMEN Ordering Facility: [facility] Address: [address] [place] [address] Performed By: #### C ONABO #### [facility] CLIA [id number] [address] [place] [address] [place] Differential cell count method Nom (Bld) Auto Normal [facility] Comment on above: Order Comment: Speci men Type: BLOOD SPECIMEN Ordering Facility: [facility] Address: [address] [place] [address] Performed By: #### C ONABO #### [facility] CLIA [id number] [address] [place] [address] [place] Eosinophils (Bld) [#/Vol] 0.09 10*3/uL Normal <0.46 [facility] Comment on above: Order Comment: Speci men Type: BLOOD SPECIMEN Ordering Facility: [facility] Address: [address] [place] [address] Performed By: #### C ONABO #### [facility] CLIA [id number] [address] [place] [address] [place] Eosinophils/100 WBC (Bld) 1.0 % Normal [facility] Comment on above: Order Comment: Speci men Type: BLOOD SPECIMEN Ordering Facility: [facility] Address: [address] [place] [address] Performed By: #### C ONABO #### [facility] CLIA [id number] [address] [place] [address] [place] Erythrocyte distribution width (RBC) [Ratio] 12.5 % Normal 11.5-15.0 [facility] Comment on above: Order Comment: Speci men Type: BLOOD SPECIMEN Ordering Facility: [facility] Address: [address] [place] [address] Performed By: #### C ONABO #### [facility] CLIA [id number] [address] [place] [address] [place] Hematocrit (Bld) [Volume fraction] 47.3 % Normal 39.0-51.0 [facility] Comment on above: Order Comment: Speci men Type: BLOOD SPECIMEN Ordering Facility: [facility] Address: [address] [place] [address] Performed By: #### C ONABO #### [facility] CLIA [id number] [address] [place] [address] [place] Hemoglobin (Bld) [Mass/Vol] 16.1 g/dL Normal 13.0-17.0 [facility] Comment on above: Order Comment: Speci men Type: BLOOD SPECIMEN Ordering Facility: [facility] Address: [address] [place] [address] Performed By: #### C ONABO #### [facility] CLIA [id number] [address] [place] [address] [place] Immature granulocytes (Bld) [#/Vol] 0.03 10*3/uL Normal <0.10 [facility] Comment on above: Order Comment: Speci men Type: BLOOD SPECIMEN Ordering Facility: [facility] Address: [address] [place] [address] Performed By: #### C ONABO #### [facility] CLIA [id number] [address] [place] [address] [place] Immature granulocytes/100 WBC (Bld) 0.3 % Normal [facility] Comment on above: Order Comment: Speci men Type: BLOOD SPECIMEN Ordering Facility: [facility] Address: [address] [place] [address] Performed By: #### C ONABO #### [facility] CLIA [id number] [address] [place] [address] [place] Lymphocytes (Bld) [#/Vol] 2.61 10*3/uL Normal 1.00-4.00 [facility] Comment on above: Order Comment: Speci men Type: BLOOD SPECIMEN Ordering Facility: [facility] Address: [address] [place] [address] Performed By: #### C ONABO #### [facility] CLIA [id number] [address] [place] [address] [place] Lymphocytes/100 WBC (Bld) 28.2 % Normal [facility] Comment on above: Order Comment: Speci men Type: BLOOD SPECIMEN Ordering Facility: [facility] Address: [address] [place] [address] Performed By: #### C ONABO #### [facility] CLIA [id number] [address] [place] [address] [place] MCH (RBC) [Entitic mass] 31.0 pg Normal 26.0-34.0 [facility] Comment on above: Order Comment: Speci men Type: BLOOD SPECIMEN Ordering Facility: [facility] Address: [address] [place] [address] Performed By: #### C ONABO #### [facility] CLIA [id number] [address] [place] [address] [place] MCHC (RBC) [Mass/Vol] 34.0 g/dL Normal 30.5-36.0 [facility] Comment on above: Order Comment: Speci men Type: BLOOD SPECIMEN Ordering Facility: [facility] Address: [address] [place] [address] Performed By: #### C ONABO #### [facility] CLIA [id number] [address] [place] [address] [place] MCV (RBC) [Entitic vol] 91.1 fL Normal 80.0-100.0 [facility] Comment on above: Order Comment: Speci men Type: BLOOD SPECIMEN Ordering Facility: [facility] Address: [address] [place] [address] Performed By: #### C ONABO #### [facility] CLIA [id number] [address] [place] [address] [place] Monocytes (Bld) [#/Vol] 0.51 10*3/uL Normal <0.87 [facility] Comment on above: Order Comment: Speci men Type: BLOOD SPECIMEN Ordering Facility: [facility] Address: [address] [place] [address] Performed By: #### C ONABO #### [facility] CLIA [id number] [address] [place] [id number] [place] Monocytes/100 WBC (Bld) 5.5 % Normal [facility] Comment on above: Order Comment: Speci men Type: BLOOD SPECIMEN Ordering Facility: [facility] Address: [address] [place] [address] Performed By: #### C ONABO #### [facility] CLIA [id number] [address] [place] [address] [place] Neutrophils (Bld) [#/Vol] 5.94 10*3/uL Normal 1.45-7.50 [facility] Comment on above: Order Comment: Speci men Type: BLOOD SPECIMEN Ordering Facility: [facility] Address: [address] [place] [address] Performed By: #### C ONABO #### [facility] CLIA [id number] [address] [place] [address] [place] Neutrophils/100 WBC (Bld) 64.4 % Normal [facility] Comment on above: Order Comment: Speci men Type: BLOOD SPECIMEN Ordering Facility: [facility] Address: [address] [place] [address] Performed By: #### C ONABO #### [facility] CLIA [id number] [address] [place] [address] [place] Nucleated RBC (Bld) [#/Vol] 10*3/uL Normal <0.01 [facility] Comment on above: Order Comment: Speci men Type: BLOOD SPECIMEN Ordering Facility: [facility] Address: [address] [place] [address] Performed By: #### C ONABO #### [facility] CLIA [id number] [address] [place] [address] [place] Nucleated RBC/100 WBC (Bld) [Ratio] 0.0 /100 WBC Normal [facility] Comment on above: Order Comment: Speci men Type: BLOOD SPECIMEN Ordering Facility: [facility] Address: [address] [place] [address] Performed By: #### C ONABO #### [facility] CLIA [id number] [address] [place] [address] [place] Platelet mean volume (Bld) [Entitic vol] 9.6 fL Normal 9.0-12.7 [facility] Comment on above: Order Comment: Speci men Type: BLOOD SPECIMEN Ordering Facility: [facility] Address: [address] [place] [address] Performed By: #### C ONABO #### [facility] CLIA [id number] [address] [place] [address] [place] Platelets (Bld) [#/Vol] 307 10*3/uL Normal 150-400 [facility] Comment on above: Order Comment: Speci men Type: BLOOD SPECIMEN Ordering Facility: [facility] Address: [address] [place] [address] Performed By: #### C ONABO #### [facility] CLIA [id number] [address] [place] [address] [place] RBC (Bld) [#/Vol] 5.19 10*6/uL Normal 4.20-6.00 [facility] Comment on above: Order Comment: Speci men Type: BLOOD SPECIMEN Ordering Facility: [facility] Address: [address] [place] [address] Performed By: #### C ONABO #### [facility] CLIA [id number] [address] [place] [address] [place] WBC (Bld) [#/Vol] 9.24 10*3/uL Normal 3.70-11.00 [facility] Comment on above: Order Comment: Speci men Type: BLOOD SPECIMEN Ordering Facility: [facility] Address: [address] [place] [address] Performed By: #### C ONABO #### [facility] CLIA [id number] [address] [place] [address] [place] Comprehensive metabolic 2000 panelon 09-16-2023 Albumin [Mass/Vol] 4.1 g/dL Normal 3.9-4.9 [facility] Comment on above: Order Comment: Speci men Type: BLOOD SPECIMEN Ordering Facility: [facility] Address: [address] [place] [address] Performed By: #### C ONABO #### [facility] CLIA [id number] [address] [place] [address] [place] ALP [Catalytic activity/Vol] 46 U/L Normal 38-113 [facility] Comment on above: Order Comment: Speci men Type: BLOOD SPECIMEN Ordering Facility: [facility] Address: [address] [place] [address] Performed By: #### C ONABO #### [facility] CLIA [id number] [address] [place] [address] [place] ALT [Catalytic activity/Vol] 21 U/L Normal 10-54 [facility] Comment on above: Order Comment: Speci men Type: BLOOD SPECIMEN Ordering Facility: [facility] Address: [address] [place] [address] Performed By: #### C ONABO #### [facility] CLIA [id number] [address] [place] [address] [place] Anion gap [Moles/Vol] 12 mmol/L Normal 9-18 [facility] Comment on above: Order Comment: Speci men Type: BLOOD SPECIMEN Ordering Facility: [facility] Address: [address] [place] [address] Performed By: #### C ONABO #### [facility] CLIA [id number] [address] [place] [address] [place] AST [Catalytic activity/Vol] 19 U/L Normal 14-40 [facility] Comment on above: Order Comment: Speci men Type: BLOOD SPECIMEN Ordering Facility: [facility] Address: [address] [place] [address] Performed By: #### C ONABO #### [facility] CLIA [id number] [address] [place] [address] [place] Bilirubin [Mass/Vol] 0.2 mg/dL Normal 0.2-1.3 [facility] Comment on above: Order Comment: Speci men Type: BLOOD SPECIMEN Ordering Facility: [facility] Address: [address] [place] [address] Performed By: #### C ONABO #### [facility] CLIA [id number] [address] [place] [address] [place] Calcium [Mass/Vol] 9.1 mg/dL Normal 8.5-10.2 [facility] Comment on above: Order Comment: Speci men Type: BLOOD SPECIMEN Ordering Facility: [facility] Address: [address] [place] [address] Performed By: #### C ONABO #### [facility] CLIA [id number] [address] [place] [address] [place] Chloride [Moles/Vol] 104 mmol/L Normal 97-105 [facility] Comment on above: Order Comment: Speci men Type: BLOOD SPECIMEN Ordering Facility: [facility] Address: [address] [place] [address] Performed By: #### C ONABO #### [facility] CLIA [id number] [address] [place] [address] [place] CO2 [Moles/Vol] 20 mmol/L Low 22-30 [facility] Comment on above: Order Comment: Speci men Type: BLOOD SPECIMEN Ordering Facility: [facility] Address: [address] [place] [address] Performed By: #### C ONABO #### [facility] CLIA [id number] [address] [place] [address] [place] Creatinine [Mass/Vol] 0.73 mg/dL Normal 0.73-1.22 [facility] Comment on above: Order Comment: Vikash vasquez Type: BLOOD SPECIMEN Ordering Facility: [facility] Address: [address] [place] [address] Performed By: #### C ONABO #### [facility] CLIA [id number] [address] [place] [address] [place] Creatinine and Glomerular filtration rate.predicted panel (S/P/Bld) 115 mL/min/1.73m??? Normal >=60 [facility] Comment on above: Order Comment: Vikash vasquez Type: BLOOD SPECIMEN Ordering Facility: [facility] Address: [address] [place] [address] Result Comment: Katie mated Glomerular Filtration Rate (eGFR) is calculated using the 2020 CKD-EPI creatinine equation. This equation utilizes serum creatinine, sex, and age as parameters. The creatinine assay has traceable calibration to isotope dilution-mass spectrometry. Refer to KDIGO guidelines for clinical interpretation. In patients with unstable renal function, e.g. those with acute kidney injury, the eGFR may not accurately reflect actual GFR. Performed By: #### C ONABO #### [facility] CLIA [id number] [address] [place] [address] [place] Glucose [Mass/Vol] 124 mg/dL High 74-99 [facility] Comment on above: Order Comment: Vikash vasquez Type: BLOOD SPECIMEN Ordering Facility: [facility] Address: [address] [place] [address] Result Comment: The [place] [employer] (ADA) provides guidance for cutoff values for fasting glucose and random glucose. The ADA defines fasting as no caloric intake for at least 8 hours. Fasting plasma glucose results between 100 to 125 mg/dL indicate increased risk for diabetes (prediabetes). Fasting plasma glucose results greater than or equal to 126 mg/dL meet the criteria for diagnosis of diabetes. In the absence of unequivocal hyperglycemia, results should be confirmed by repeat testing. In a patient with classic symptoms of hyperglycemia or hyperglycemic crisis, random plasma glucose results greater than or equal to 200 mg/dL meet the criteria for diagnosis of diabetes. Reference: Standards of Medical Care in Diabetes 2016, [place] [employer]. Diabetes Care. 2016.39(Suppl 1). Performed By: #### C ONABO #### [facility] CLIA [id number] [address] [place] [address] [place] Potassium [Moles/Vol] 4.2 mmol/L Normal 3.7-5.1 [facility] Comment on above: Order Comment: Speci men Type: BLOOD SPECIMEN Ordering Facility: [facility] Address: [address] [place] [address] Performed By: #### C ONABO #### [facility] CLIA [id number] [address] [place] [address] [place] Protein [Mass/Vol] 6.8 g/dL Normal 6.3-8.0 [facility] Comment on above: Order Comment: Speci men Type: BLOOD SPECIMEN Ordering Facility: [facility] Address: [address] [place] [address] Performed By: #### C ONABO #### [facility] CLIA [id number] [address] [place] [address] [place] Sodium [Moles/Vol] 136 mmol/L Normal 136-144 [facility] Comment on above: Order Comment: Speci men Type: BLOOD SPECIMEN Ordering Facility: [facility] Address: [address] [place] [address] Performed By: #### C ONABO #### [facility] CLIA [id number] [address] [place] [address] [place] Urea nitrogen [Mass/Vol] 9 mg/dL Normal 9-24 [facility] Comment on above: Order Comment: Speci men Type: BLOOD SPECIMEN Ordering Facility: [facility] Address: [address] [place] [address] Performed By: #### C ONABO #### CC MAIN BLOOD BANK CLIA [id number] [address] [place] [address] [place] ECG COMPLETEon 09-16-2023 ECG COMPLETE Ventricular Rate : 9 6 BPM Atrial Rate : 96 BPM P-R Interval : 136 ms QRS Duration : 94 ms Q-T Interval : 362 ms QTC Calculation(Bazett) : 457 ms Calculated P [place] : 30 degrees Calculated R [place] : 19 degrees Calculated T [place] : 18 degrees NORMAL SINUS RHYTHM NORMAL ECG Confirmed by MD SHILOH, PhD, MATTHEW ([id number]) on 09/25/2023 1:38:47 PM NAME : PATRICK KOROMA PID : [id number] : 1980 Gender : Male Race : ORD : [id number] Procedure Date : Sep 16 2023 12:20:58 Edit Date : Sep 25 2023 13:38:51 Diagnosis: NORMAL SINUS RHYTHM NORMAL ECG Confirmed by MD SHILOH, PhD, MATTHEW ([id number]) on 09/25/2023 1:38:47 PM Test Reason : Location : 119 : A17 A17 Overread By : MD SHILOH, PhD,MATTHEW Edited By : MD SHILOH, PhD,MATTHEW Referred By : JESE RICHARDSON Acquired by : ESAU MCGARRY [facility] HISTORY PHYSICALon HISTORY PHYSICAL HNO ID: [id number] Author: DIANA GRAHAM PA-C Service: ? 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 Burgess Activity Status Index: METS: Climb a flight of stairs or walk up a hill (5.50 METs) DASI Score: 5.5 STOP-Bang Score: Snores loudly BMI greater than 35 kg/m2 Has a large neck Male patient Denies feeling tired, fatigued, or sleepy during the daytime Has not been observed to stop breathing or choking/gasping during sleep Denies having high blood pressure Patient 50 years old or younger STOP-Bang Score: 4 ANESTHESIA FINDINGS: Intubation History: No history of difficult intubation Significant Anesthesia Considerations: none Airway History: No history of difficult airway I - PHYSICAL EVALUATION AIRWAY Patient intubated: No. Tracheostomy tube not present TM distance: >3 FB. Neck ROM: full ROM without neurological symptoms. Mouth opening: adequate. Short neck: no. Thick neck: no Microretrognathia/Eh ronagthia/Recessed Chin: No DENTAL Normal dental observations. II - ANESTHESIA PLAN Beta Miguel Monitoring Plan Post Procedure Analgesic Plan PLAN This patient is optimally prepared for surgery pending LABS and EKG. CONSULTS: Patient does not require consults for optimization at this time. Planned Anesthetic: Per anesthesia choice The Following Tests/Procedures Have Been Initiated: Labs and EKG per surgical service REASON FOR VISIT: Patrick Koroma is a 43 year old male who is scheduled for Procedure(s): REMOVAL OF PROSTHETIC MATERIAL OR MESH ABDOMINAL WALL FOR INFECTION (Pending) at the request of Dr. Jese Richardson for consultation. My final recommendation will be communicated back to the requesting physician by way of shared medical record or letter. Subjective The patient has the following: ACTIVE PROBLEM LIST Post Traumatic Seizure Disorder (Hcc) Left Lower Quadrant Abdominal Pain Morbid Obesity (Hcc) Tobacco Use COVID-19 Immunization Status Overdue - Covid-19 Vaccine ( season) Overdue since 02/14/2023 04/30/2021 Imm Admin: COVID-19 original vaccine, full dose, monovalent (MODERNA) 10/05/2020 Imm Admin: COVID-19 original vaccine, full dose, monovalent (MODERNA) 09/06/2020 Imm Admin: COVID-19 original vaccine, full dose, monovalent (MODERNA) Only the first 3 history entries have been loaded, but more history exists. CHIEF COMPLAINT: Pre-op exam HPI: Patrick Koroma is a 43 year old male who presents for pre-anesthesia consultation. Patient has a history of left sided abdominal pain. Patient is s/p 3 hernia repairs, most recently 07/2022.Above procedure is recommended to manage symptoms. Patient is scheduled for surgery on 10/07/2023. REVIEW OF SYSTEMS: General: No weight loss, malaise or fevers. Neurological: Positive for: seizures. Respiratory: Positive for: tobacco use. Cardiovascular: No history of HTN requiring medication, no history of angina, CHF, CO, cardiac surgery or stents. Denies rest pain, gangrene or revascularization/amp utation for PVD. No history of cardiovascular symptoms or problems. GI: See HPI. : No history of dysuria, frequency or incontinence, stones or chronic kidney disease. No difficulty urinating, nocturia > 1 time per night or hematuria. Endocrine: No history of diabetes. Has not taken steroids within the past 30 days. No history of endocrinological symptoms or problems. Hematology: No history of bleeding or clotting disorder. Patient is not taking anti-coagulation or platelet medications. No history of hematological symptoms or problems. Oncology: No history of CA metastasis, chemo within 30 days, or radiotherapy within 90 days. No history of oncological symptoms or problems. Psych: No history of psychiatric symptoms or problems. Musculoskeletal: Negative for joint pain or swelling, back pain or muscle pain. Skin: Negative for lesions, rash and itching. 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 Normal [facility] PT panel Coag (PPP)on 2023 INR Coag (PPP) [Relative time] 0.9 {INR} Normal 0.9-1.3 [facility] Comment on above: Order Comment: Speci men Type: BLOOD SPECIMEN Ordering Facility: [facility] Address: [facility] [place] [address] Result Comment: Bisi min K Antagonist (VKA) Therapeutic Range: INR 2 to 3 (Target INR of 2.5) Note: For patients treated with VKA drugs, such as warfarin, the [place] [employer] 2012 Guideline recommends a therapeutic INR range of 2 to 3 (target INR of 2.5). This recommendation includes high-risk patients with antiphospholipid syndrome with previous arterial or venous thromboembolism, current-generation mechanical or bioprosthetic aortic heart valve replacement. Note: Patients with mechanical aortic valve replacement and additional risk factors for thromboembolic events (atrial fibrillation, previous thromboembolism, LV dysfunction, hypercoagulable conditions) or an older generation mechanical AVR (i.e., ball in-Cage) or any mechanical MVR should have a INR therapeutic range of 2.5 to 3.5 (target INR of 3). Nyla GH, et al. Chest 2012, 141:7S-47S Sharla RA, et al. [facility] 2017, 70: 252-289 Performed By: #### C ONABO #### CC MAIN BLOOD BANK CLIA [id number] [address] [place] [address] [place] PT Coag (PPP) [Time] 10.1 s Normal 9.7-13.0 [facility] Comment on above: Order Comment: Speci men Type: BLOOD SPECIMEN Ordering Facility: [facility] Address: [address] [place] [address] Performed By: #### C ONABO #### CC MAIN BLOOD BANK CLIA [id number] [address] [place] [address] [place] TYPE AND SCREEN,30 DAYon ABO B Normal [facility] Comment on above: Order Comment: Speci men Type: BLOOD SPECIMEN Ordering Facility: [facility] Address: [address] [place] [address] Performed By: #### T SCR30 #### CC MAIN BLOOD BANK CLIA [id number] [address] [place] [address] [place] HISTORICAL AB SCR STATUS Negative Normal [facility] Comment on above: Order Comment: Speci men Type: BLOOD SPECIMEN Ordering Facility: [facility] Address: [address] [place] [address] Performed By: #### T SCR30 #### CC [facility]IN BLOOD BANK CLIA [id number] [address] [place] [address] [place] Rh Nom (Bld) Positive Normal [facility] Comment on above: Order Comment: Speci men Type: BLOOD SPECIMEN Ordering Facility: [facility] Address: [address] [place] [address] Performed By: #### T SCR30 #### CC MAIN BLOOD BANK [facility] [id number] [address] [place] [address] [place] aPTT PPPon 09-16-2023 aPTT Coag (PPP) [Time] 29.1 s Normal 23.0-32.4 [facility] Comment on above: Order Comment: Speci men Type: BLOOD SPECIMEN Ordering Facility: [facility] Address: [address] [place] [address] Performed By: #### C ONABO #### CC MAIN BLOOD BANK [facility] [id number] [address] [place] [address] OF [facility] CNOVon 08-06-2023 CNOV Office Visit (NPRC21 ) VALDOPATRICK SALAS Cesar ([id number]) 1980 M Date Time Provider Department 08/06/23 9:30 AM KELLEY MERAZ NPR1 During your visit today, we recorded the following information about you: Pulse Blood pressure Weight Height 107/minute 153/101 158.8 kg 1.88 m Kelley Meraz APRN.CNP, DNP 08/06/2023 10:16 AM Signed In-Person Visit Present: patient [facility] Neurological [facility] August 06, 2023 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 He was referred by Linda Griffiths CNP (General Surgery) [address] [place] [id number]. This consultation was shared with the referral source via the [facility] electronic medical record. The patient understanding of the reason for referral is to help with the pain. Chief complaints: Constant sharp LUQ pain Aggravating factors: everything Alleviating factors: nothing Current pain level is 7/10. Pain varies from 4-10/10 Present Illness: PMH includes chronic abdominal pain, epilepsy, morbid obesity, nicotine use disorder He is s/p 3 hernia repairs between 2018 and July 2022. Abdominal pain started 6 months ago. Previous pain treatments: medications, surgery 07/07/23 Jese Richardson MD (General Surgery) Patrick Koroma is a 43 year old male who presents with left sided abdominal pain. He had three previous hernia repair, one umbilical without mesh, one lap with mesh, one then as an onlay (last being in Jul 2022, onlay). He had some seroma issues, after requiring perc drain (drain has been out since November 2022). He has no chills, fevers, or erythema. He has no clinical signs of infection. He has a CT reviewed from May 2023, which shows normal post op changes for an onlay, without fluid collections. I dont see any radiographic or clinical signs of a mesh infection. Unsure what's contributing to his pain, but its minimal, and he is able to work without issue. I wouldn't recommend anything at this time, but explained if he starts having wound drainage, redness, or fevers to return to re-evaluate things. He expressed understanding and gratitude. Assessment: Patrick Koroma is a 43 year old male with PMH post traumatic seizure disorder, s/p appendectomy and multiple hernia repair who presents with pain lateral to the hernia repair site Plan: - No signs of infection or inflammation in the left of the abdomen, patient is educated on the s/s of infection - No surgical intervention needed. Mostly neuropathic pain Scheduled for removal of prosthetic material or mesh on 10/07/23 Medication Tried: Membrane stabilizers: gabapentin and carbamazepine for epilepsy NSAID's: Mobic Muscle relaxants: denied Opiates: hydrocodone, oxycodone Benzodiazepines: Ativan Antidepressants: denied Topicals: denied Other: denied Current Medications: Current Outpatient Medications Medication Sig gabapentin (NEURONTIN) 300 mg capsule Take 1 capsule by mouth three times a day for 90 days. No current facility-administered medications for this visit. PDMP website checked and validated. All prescriptions have been APPROPRIATELY filled. No suspicious activity was identified. 08/06/2023 by Kelley Meraz APRN.DOOR CLOSER, DNP Functional Limitations: The patient has been unable to work since March 2023. He spends his days helping his mother and 42 year old brother. Emotional Symptoms include frustration. He denies symptoms of anxiety, depression or suicidal ideation, plan or intent. Sleep is fragmented by pain. Appetite and weight are stable. Non-medical stresses are denied. Family involvement: Mother and fiance are supportive Financial Status: Disability income is denied. Mesh class action suit pending It was explained to patient that our department does not complete disability claim paperwork with the exception of FMLA paperwork while undergoing treatment in the [facility] or during the week of ketamine infusions. Patient-Entered Data: Pain Recovery Scores No Data LBP over last 6 months - Ongoing back pain problem - START back screen total score - START back screen distress score - START back screen risk score - Oswestry disability index score - PCS rumination subscore - PCS magnification subscore - PCS helplessness subscore - PCS total score - No flowsheet data found. No flowsheet data found. No flowsheet data found. No flowsheet data found. 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 Normal [facility] CNOVon 07-07-2023 CNOV Office Visit (JUNG ) PATRICK KORMOA ([id number]) 1980 M Date Time Provider Department 07/07/23 9:00 AM JESE RICHARDSON During your visit today, we recorded the following information about you: Temperature Pulse Blood pressure Weight 99 degrees 106/minute 127/86 163 kg Height 1.88 m Rica Cantor 07/07/2023 8:51 AM Signed What is the reason for your visit today? consult Who is your referring physician? Jeffery Dominguez Are you having poor oral intake? NO Have you had unintentional weight loss of 15 lbs/7 Kg in the last 3-6 months? NO Bowels: regular Wound: clean AND dry Temperature: No Drains: No Viviana Teresa MD 07/07/2023 9:35 AM Signed [facility]dominal [facility] - HISTORY AND PHYSICAL Chief Complaint: pain to the left of the hernia repair HPI: Patrick Koroma is a 43 year old male with PMH post traumatic seizure disorder, s/p appendectomy and multiple hernia repair who presents with pain lateral to the hernia repair site On 11/22/21 he had a robotic assisted repair of recurrent ventral hernia at [facility] with Dr Aaron Duque with removal of prior mesh, on November 22, 2021. An 11cm circular ventralight ST mesh was inserted into the preperitoneal space. This was complicated by increased discomfort and swelling post op associated with a 12 x 10cm fluid collection concerning for a hematoma. This was aspirated 01/03/[address] [place]. He was doing till 07/2022 he had a recurrent and he had an open hernia repair with mesh. He is here today because of pain aquilino the left of the hernia repair, he had a CT scan 06/2023 that showed hematoma. He has seen his Surgeon and he tod him the mesh us infected and he will need abdominal wall reconstruction and refereed him here. 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 Additional family history not relevant to the patient's HPI ALLERGIES Allergen Reactions Adhesive Tape-Silic* Hives Keflex [Cephalexin] Hives Keppra [Levetiracet* Hives Morphine Anaphylaxis Naproxen Hives Current Outpatient Medications Medication Sig Dispense Refill gabapentin (NEURONTIN) 300 mg capsule Take 1 capsule by mouth three times daily for 90 days. 90 capsule 2 carBAMazepine XR (TEGRETOL XR) 400 mg 12 hr tablet Take 1 tablet by mouth twice daily. 60 tablet 2 meloxicam (MOBIC) 15 mg tablet Take 1 tablet by mouth once daily. for pain. Take with food. (Patient not taking: Reported on 01/03/2022 ) 30 tablet 0 methylPREDNISolone (MEDROL DOSE-PACK) 4 mg Dose-Pack As Instructed per package (Patient not taking: Reported on 01/03/2022 ) 1 Package 0 LORazepam (ATIVAN) 0.5 mg tab To take when he thinks he is going to have a seizure. (Patient not taking: Reported on 01/03/2022) 15 tablet 0 No current facility-administered medications for this visit. REVIEW OF SYSTEMS PAIN ASSESSMENT: Negative for pain, history of chronic pain, or current treatment for a chronic pain condition. RESPIRATORY: Negative for cough, hemoptysis, wheezing, COPD, dyspnea or shortness of breath CARDIOVASCULAR: Negative for chest pain, leg swelling, hypertension, CHF or palpitations GI: No nausea, vomiting, or diarrhea The remainder of the 12 review of systems is negative other than what was mentioned in the HPI and above. There were no vitals taken for this visit. Physical findings of this patient are as follows (COMPLETE 10 INCLUDING HEART AND LUNG EXAM OR CHOOSE NORMAL EXAM IF APPROPRIATE): Physical Exam Physical Exam Constitutional: The patient is well-developed, well-nourished, and in no distress. Head: Normocephalic and atraumatic. Eyes: Pupils are equal, round, and reactive to light. EOM are normal. Neck: Normal range of motion. Neck supple. Cardiovascular: Regular rhythm and normal heart sounds. Pulmonary/Chest: Effort normal and breath sounds normal. Abdominal: Softsee hpi. Musculoskeletal: Normal range of motion. Neurological: He is alert. GCS score is 15. Skin: Skin is warm (more content not included)... Normal [facility] .Auto Diffon 06-28-2023 Basophil, Absolute 0.0 10 3/mcL Normal 0.0-0.2 [facility] ([place]) Comment on above: Performed By: #### C BC, CMP, ADIFF, MDW, LIP, ANEU, GFR #### [address] [address] Basophils/100 WBC (Bld) 0.2 % Normal 0.0-2.5 [facility] ([place]) Comment on above: Performed By: #### C BC, CMP, ADIFF, MDW, LIP, ANEU, GFR #### [address] [address] Eosinophil, Absolute 0.2 10 3/mcL Normal 0.0-0.4 [facility] ([place]) Comment on above: Performed By: #### C BC, CMP, ADIFF, MDW, LIP, ANEU, GFR #### [address] [address] Eosinophils/100 WBC (Bld) 2.4 % Normal 0.0-7.0 [facility] ([place]) Comment on above: Performed By: #### C BC, CMP, ADIFF, MDW, LIP, ANEU, GFR #### [address] [address] Lymphocyte, Absolute 2.8 10 3/mcL Normal 0.8-3.9 [facility] ([place]) Comment on above: Performed By: #### C BC, CMP, ADIFF, MDW, LIP, ANEU, GFR #### [address] [address] Lymphocytes/100 WBC (Bld) 32.1 % Normal 10.0-50.0 [facility] ([place]) Comment on above: Performed By: #### C BC, CMP, ADIFF, MDW, LIP, ANEU, GFR #### [address] [address] Monocyte, Absolute 0.6 10 3/mcL Normal 0.2-1.0 [facility] ([place]) Comment on above: Performed By: #### C BC, CORNELIA, KLARISSA, W, LIP, ANEU, GFR #### [address] [address] Monocytes/100 WBC (Bld) 6.7 % Normal 1.7-13.0 [facility] ([place]) Comment on above: Performed By: #### C BC, CMP, KLARISSA, W, LIP, ANEU, GFR #### [address] [address] Neutrophils/100 WBC (Bld) 58.6 % Normal 37.0-80.0 [facility] ([place]) Comment on above: Performed By: #### C BC, CMP, KLARISSA, W, LIP, ANEU, GFR #### [address] [address] .GFRon 06-28-2023 GFR 110 ml/min/1.73sqm Normal [facility] ([place]) Comment on above: Result Comment: GFR Population mean for , Non- Americans Ages 20-29 = 116 mL/min/1.73 sq.m. Ages 30-39 = 107 mL/min/1.73 sq.m. Ages 40-49 = 99 mL/min/1.73 sq.m. Ages 50-59 = 93 mL/min/1.73 sq.m. Ages 60-69 = 85 mL/min/1.73 sq.m. Ages 70+ = 75 mL/min/1.73 sq.m. Chronic Kidney Disease: Less than 60 mL/min/1.73 square meters End Stage Renal Disease: Less than 15 mL/min/1.73 square meters Performed By: #### C BC, OCRNELIA, KLARISSA, W, LIP, ANEU, GFR #### [address] [address] GFR Non- 91 ml/min/1.73sqm Normal [facility] ([place]) Comment on above: Result Comment: GFR Population mean for , Non- Americans Ages 20-29 = 116 mL/min/1.73 sq.m. Ages 30-39 = 107 mL/min/1.73 sq.m. Ages 40-49 = 99 mL/min/1.73 sq.m. Ages 50-59 = 93 mL/min/1.73 sq.m. Ages 60-69 = 85 mL/min/1.73 sq.m. Ages 70+ = 75 mL/min/1.73 sq.m. Chronic Kidney Disease: Less than 60 mL/min/1.73 square meters End Stage Renal Disease: Less than 15 mL/min/1.73 square meters Performed By: #### C BC, CORNELIA, KLARISSA, MDW, LIP, ANEU, GFR #### [place] [id number] .MDWon 06-28-2023 Monocyte Distribution Width 20.24 High 0.00-20.00 [facility] ([place]) Comment on above: Result Comment: For adults in ED, MDW>20.0 may be associated with a higher risk of sepsis during the first 12hrs of hospital admission Performed By: #### C LANI, CORNELIA, KLARISSA, MDW, LIP, ANEU, GFR #### [place] [id number] .NEUABSon 06-28-2023 Neutrophil, Absolute 5.2 10 3/mcL Normal 2.9-6.2 [facility] ([place]) Comment on above: Performed By: #### C BC, CORNELIA, KLARISSA, MDW, LIP, ANEU, GFR #### [place] [id number] .Urinalysis Microscopic (AO) on 06-28-2023 UA Amorphus 2+ /hpf Normal [facility] ([place]) Comment on above: Performed By: #### C BC, CMP, KLARISSA, MDW, LIP, ANEU, GFR #### [place] [id number] UA Mucous Trace Normal [facility] ([place]) Comment on above: Performed By: #### C BC, CMP, KLARISSA, MDW, LIP, ANEU, GFR #### [place] [id number] UA RBC None Seen Normal None Seen [facility] ([place]) Comment on above: Performed By: #### C BC, CMP, ADJAN, MDW, LIP, ANEU, GFR #### [address] [address] UA Squam Epithelial None Seen Normal None Seen Replaced by [facility] ([place]) Comment on above: Performed By: #### C BC, CMP, ADIFF, MDW, LIP, ANEU, GFR #### [address] [address] UA WBC None Seen Normal None Seen [facility] ([place]) Comment on above: Performed By: #### C BC, CMP, KLARISSA, MDW, LIP, ANEU, GFR #### [address] [address] CBCon 06-28-2023 Erythrocyte distribution width (RBC) [Ratio] 13.5 % Normal 11.5-14.5 [facility] ([place]) Comment on above: Performed By: #### C BC, CMP, ADIFF, MDW, LIP, ANEU, GFR #### [address] [address] Hematocrit (Bld) [Volume fraction] 44.3 % Normal 42.0-52.0 [facility] ([place]) Comment on above: Performed By: #### C BC, CMP, ADIFF, MDW, LIP, ANEU, GFR #### [address] [address] Hgb 15.4 G/dL Normal 14.0-18.0 [facility] ([place]) Comment on above: Performed By: #### C BC, CMP, ADIFF, MDW, LIP, ANEU, GFR #### [address] [address] MCH (RBC) [Entitic mass] 31.5 pg High 27.0-31.2 [facility] ([place]) Comment on above: Performed By: #### C BC, CMP, ADIFF, MDW, LIP, ANEU, GFR #### [address] [address] MCHC 34.8 G/dL Normal 31.8-35.4 [facility] ([place]) Comment on above: Performed By: #### C LANI, CORNELIA, KLARISSA, W, LIP, ANEU, GFR #### [address] [address] MCV (RBC) [Entitic vol] 90.6 fL Normal 80.0-94.0 [facility] ([place]) Comment on above: Performed By: #### C BC, CMP, KLARISSA, W, LIP, ANEU, GFR #### [address] [address] Platelet 294 10 3/mcL Normal 130-400 [facility] ([place]) Comment on above: Performed By: #### C LANI, CORNELIA, KLARISSA, ANURAG, LIP, ANEU, GFR #### [place] [id number] Platelet mean volume (Bld) [Entitic vol] 7.2 fL Low 7.4-10.4 [facility] ([place]) Comment on above: Performed By: #### C LANI, CORNELIA, KLARISSA, W, LIP, ANEU, GFR #### [place] [id number] RBC 4.89 10 6/mcL Normal 4.04-6.13 [facility] ([place]) Comment on above: Performed By: #### C LANI, CORNELIA, KLARISSA, ANURAG, LIP, ANEU, GFR #### [place] [address] WBC 8.8 10 3/mcL Normal 4.6-10.8 [facility] ([place]) Comment on above: Performed By: #### C LANI, CORNELIA, KLARISSA, W, LIP, ANEU, GFR #### [place] [phone] CMPon 06-28-2023 Albumin Level 3.3 G/dL Low 3.5-5.0 [facility] ([place]) Comment on above: Performed By: #### C BC, CMP, ADIFF, MDW, LIP, ANEU, GFR #### [address] [address] Albumin/Globulin [Mass ratio] 0.9 {ratio} Low 1.1-2.5 [facility] ([place]) Comment on above: Performed By: #### C BC, CMP, ADIFF, MDW, LIP, ANEU, GFR #### [address] [address] ALP [Catalytic activity/Vol] 46 U/L Normal 40-135 [facility] ([place]) Comment on above: Performed By: #### C BC, CMP, ADIFF, MDW, LIP, ANEU, GFR #### [address] [address] ALT [Catalytic activity/Vol] 31 U/L Normal 16-63 [facility] ([place]) Comment on above: Performed By: #### C BC, CMP, ADIFF, MDW, LIP, ANEU, GFR #### [address] [address] AST [Catalytic activity/Vol] 16 U/L Normal 10-40 [facility] ([place]) Comment on above: Performed By: #### C BC, CMP, ADIFF, MDW, LIP, ANEU, GFR #### [address] [address] Bili Total 0.3 mg/dL Normal 0.2-1.0 [facility] ([place]) Comment on above: Result Comment: Use of this assay is not recommended for patients undergoing treatment with eltrombopag due to the potential for falsely elevated results. Performed By: #### C BC, CMP, ADIFF, MDW, LIP, ANEU, GFR #### [address] [address] BUN/Creatinine Ratio 13 ratio Normal 7-27 [facility] ([place]) Comment on above: Performed By: #### C BC, CMP, ADIFF, MDW, LIP, ANEU, GFR #### [address] [address] Calcium [Mass/Vol] 9.1 mg/dL Normal 8.4-10.2 [facility] ([place]) Comment on above: Performed By: #### C BC, CMP, ADIFF, MDW, LIP, ANEU, GFR #### [address] [address] Chloride [Moles/Vol] 103 mmol/L Normal 98-107 [facility] ([place]) Comment on above: Performed By: #### C BC, CMP, ADIFF, MDW, LIP, ANEU, GFR #### [address] [address] CO2 [Moles/Vol] 30 mmol/L High 22-29 [facility] ([place]) Comment on above: Performed By: #### C BC, CMP, ADIFF, MDW, LIP, ANEU, GFR #### [address] [address] Creatinine [Mass/Vol] 0.91 mg/dL Normal 0.70-1.30 [facility] ([place]) Comment on above: Performed By: #### C BC, CMP, ADIFF, MDW, LIP, ANEU, GFR #### [address] [address] Electrolyte Balance 6.0 mEq/L Normal 4.0-15.0 Replaced by [facility] ([place]) Comment on above: Performed By: #### C BC, CMP, ADIFF, MDW, LIP, ANEU, GFR #### [address] [address] Globulin 3.5 G/dL Normal [facility] ([place]) Comment on above: Performed By: #### C BC, CMP, ADIFF, MDW, LIP, ANEU, GFR #### [address] [address] Glucose [Mass/Vol] 137 mg/dL High 70-105 [facility] ([place]) Comment on above: Performed By: #### C BC, CMP, ADIFF, MDW, LIP, ANEU, GFR #### [place] [phone] Potassium [Moles/Vol] 3.8 mmol/L Normal 3.5-5.1 [facility] ([place]) Comment on above: Performed By: #### C BC, CMP, KLARISSA, MDW, LIP, ANEU, GFR #### [place] [address] [place], [place] [address] Sodium [Moles/Vol] 139 mmol/L Normal 136-145 [facility] ([place]) Comment on above: Performed By: #### C BC, CMP, KLARISSA, MDW, LIP, ANEU, GFR #### [place] [address] [place], [place] [address] Total Protein 6.8 G/dL Normal 6.4-8.2 [facility] ([place]) Comment on above: Performed By: #### C BC, CMP, KLARISSA, MDW, LIP, ANEU, GFR #### [place] [address] [place], [place] [address] Urea nitrogen [Mass/Vol] 12 mg/dL Normal 7-18 [facility] ([place]) Comment on above: Performed By: #### C BC, CMP, KLARISSA, MDW, LIP, ANEU, GFR #### [address] [address] [address] ABD/PELVIS W/ IV CONTRAST ONLYon 06-28-2023 CT ABD/PELVIS W/ IV CONTRAST ONLY ORIGINAL EXAMINATION: CT OF THE ABDOMEN AND PELVIS WITH CONTRAST 06/28/2023 3:37 pm TECHNIQUE: CT of the abdomen and pelvis was performed with the administration of intravenous contrast. Multiplanar reformatted images are provided for review. Automated exposure control, iterative reconstruction, and/or weight based adjustment of the mA/kV was utilized to reduce the radiation dose to as low as reasonably achievable. COMPARISON: CT abdomen pelvis 05/16/2023, 02/12/2023 HISTORY: ORDERING SYSTEM PROVIDED HISTORY: Reason for Exam: pain, hernia surgery FINDINGS: Mild bilateral lower lobe atelectasis. The liver, spleen, adrenal glands, pancreas are within normal limits. The gallbladder is contracted and therefore not well evaluated. Symmetric nephrograms bilaterally. Unremarkable bladder and prostate gland. No free fluid in the pelvis. Normal caliber small and large bowel. Patient is status post appendectomy. No free air. The aorta is atherosclerotic but nonaneurysmal. No enlarged lymph nodes. Nonspecific subcutaneous tissue stranding and induration of the anterior abdominal subcutaneous tissues. Small confluent area of soft tissue density of the left external oblique muscle appears stable since the prior exam. Midline abdominal surgical scar. No fluid collection identified. No acute osseous abnormality. Mild degenerative changes. Tiny right and small left fat containing inguinal hernias without evidence of complications. IMPRESSION: No significant change from prior exam. I have personally reviewed the images of this examination and agree with the resident's findings and interpretation. Interpreted by: Wang Francisco Preliminary Report By: Isidro Duque Electronically signed By Wang Francisco Dictated Date: 06/28/2023 3:48:17 PM Prelim Date: 06/28/2023 3:57:27 PM Sign Date: 06/28/2023 4:25:43 PM Ordering Provider: YOUNG Nelson [facility] ([place]) LABORATORYOrdered By: Becka Artis on 06-28-2023 Appearance (U) Slightly Cloudy *ABN* (06/28/23 3:36 PM) Invalid Interpretation Code Clear AO Auto Urine SS Bilirubin Ql (U) Negative (06/28/23 3:36 PM) Normal Negative AO Auto Urine SS Color (U) Yellow (06/28/23 3:36 PM) Normal AO Auto Urine SS Crystals.amorphous LM.HPF (Urine sed) [#/Area] 2 /[HPF] Normal AO Auto Urine SS Glucose Test strip (U) [Mass/Vol] Negative Normal Negative AO Auto Urine SS Hemoglobin Auto test strip (U) [Mass/Vol] Negative (06/28/23 3:36 PM) Normal Negative AO Auto Urine SS Ketones Ql (U) Negative Normal Negative AO Auto Ur ine SS UA Leuk Est Negative (06/28/23 3:36 PM) Normal Negative AO Auto Urine SS UA Mucous Trace /HPF Normal AO Auto Urine SS UA Nitrite Negative (06/28/23 3:36 PM) Normal Negative AO Auto Urine SS UA pH 7.0 (06/28/23 3:36 PM) Normal 5.0 - 8.0 AO Auto Urine SS UA Protein Negative Normal Negative AO Auto Urine SS UA RBC None Seen /HPF Normal None Seen AO Auto Ur ine SS UA Spec Grav 1.020 (06/28/23 3:36 PM) Normal 1.015-1.025 AO Auto Urine SS UA Specimen Type Clean Catch (06/28/23 3:36 PM) Normal AO Auto Urine SS UA Squam Epithelial None Seen /HPF Normal None Seen A O Auto Urine SS UA Urobilinogen 0.2 E.U./dL Normal 0.2-1.0 AO Auto Urine SS WBC LM.HPF (Urine sed) [#/Area] None Seen /HPF Normal None Seen AO Auto Urine SS LABORATORYOrdered By: SYSTEM SYSTEM on 06-28-2023 Lactate [Moles/Vol] 1.4 mmol/L Normal 0.4 - 2. 0 mmol/L AO ADM SS Albumin BCP dye [Mass/Vol] 3.3 G/dL Low 3.5 - 5.0 G/dL AO ADM SS Albumin/Globulin [Mass ratio] 0.9 {ratio} Low 1.1 - 2.5 ratio AO ADM SS ALP [Catalytic activity/Vol] 46 U/L Normal 40 - 135 U/L AO ADM SS ALT With P-5'-P [Catalytic activity/Vol] 31 U/L Normal 16 - 63 U/L AO ADM SS AST With P-5'-P [Catalytic activity/Vol] 16 U/L Normal 10 - 40 U/L AO ADM SS Basophil, Absolute 0.0 103/mcL Normal 0.0 - 0.2 10^3/mcL AO Workflow SS Basophils/100 WBC (Bld) 0.2 % Normal 0.0 - 2.5 % AO Workflow SS Bilirubin [Mass/Vol] 0.3 mg/dL Normal 0.2 - 1 .0 mg/dL AO ADM SS Comment on above: Interpretive Data: U se of this assay is not recommended for patients undergoing treatment with eltrombopag due to the potential for falsely elevated results. Calcium [Mass/Vol] 9.1 mg/dL Normal 8.4 - 10. 2 mg/dL AO ADM SS Chloride [Moles/Vol] 103 mmol/L Normal 98 - 10 7 mmol/L AO ADM SS CO2 [Moles/Vol] 30 mmol/L High 22 - 29 mmol/L AO ADM SS Creatinine [Mass/Vol] 0.91 mg/dL Normal 0.70 - 1.30 mg/dL AO ADM SS Electrolyte Balance 6.0 mEq/L Normal 4.0 - 15 .0 mEq/L AO ADM SS Eosinophil, Absolute 0.2 103/mcL Normal 0.0 - 0 .4 10^3/mcL AO Workflow SS Eosinophils/100 WBC (Bld) 2.4 % Normal 0.0 - 7.0 % AO Workflow SS Erythrocyte distribution width (RBC) [Ratio] 13.5 % Normal 11.5 - 14.5 % AO Workflow SS GFR/1.73 sq M.predicted among blacks MDRD (S/P/Bld) [Vol rate/Area] 110 ml/min/1.73sqm Invalid Interpretation Code AO Chemistry S Comment on above: Interpretive Data: GFR Population mean for , Non- Americans Ages 20-29 = 116 mL/min/1.73 sq.m. Ages 30-39 = 107 mL/min/1.73 sq.m. Ages 40-49 = 99 mL/min/1.73 sq.m. Ages 50-59 = 93 mL/min/1.73 sq.m. Ages 60-69 = 85 mL/min/1.73 sq.m. Ages 70+ = 75 mL/min/1.73 sq.m. Chronic Kidney Disease: Less than 60 mL/min/1.73 square meters End Stage Renal Disease: Less than 15 mL/min/1.73 square meters GFR/1.73 sq M.predicted among non-blacks MDRD (S/P/Bld) [Vol rate/Area] 91 ml/min/1.73sqm Invalid Interpretation Code AO Chemistry S Comment on above: Interpretive Data: GFR Population mean for , Non- Americans Ages 20-29 = 116 mL/min/1.73 sq.m. Ages 30-39 = 107 mL/min/1.73 sq.m. Ages 40-49 = 99 mL/min/1.73 sq.m. Ages 50-59 = 93 mL/min/1.73 sq.m. Ages 60-69 = 85 mL/min/1.73 sq.m. Ages 70+ = 75 mL/min/1.73 sq.m. Chronic Kidney Disease: Less than 60 mL/min/1.73 square meters End Stage Renal Disease: Less than 15 mL/min/1.73 square meters Globulin 3.5 G/dL Invalid Interpretation Code AO ADM SS Glucose [Mass/Vol] 137 mg/dL High 70 - 105 mg/dL AO ADM SS Hematocrit (Bld) [Volume fraction] 44.3 % Normal 42.0 - 52.0 % AO Workflow SS Hemoglobin (Bld) [Mass/Vol] 15.4 G/dL Normal 14.0 - 18.0 G/dL AO Workflow SS Lipase [Catalytic activity/Vol] 28 U/L Normal 16 - 77 U/L AO ADM SS Lymphocyte, Absolute 2.8 103/mcL Normal 0.8 - 3 .9 10^3/mcL AO Workflow SS Lymphocytes/100 WBC (Bld) 32.1 % Normal 10.0 - 50.0 % AO Workflow SS MCH (RBC) [Entitic mass] 31.5 pg High 27.0 - 31.2 pg AO Workflow SS MCHC 34.8 G/dL Normal 31.8 - 35.4 G/dL AO Workflow SS MCV (RBC) [Entitic vol] 90.6 fL Normal 80.0 - 94.0 fL AO Workflow SS Monocyte distribution width Auto (Bld) [Entitic vol] 20.24 1 High 0.00 - 20.00 AO Workflow SS Comment on above: Result Comment: For adults in ED, MDW>20.0 may be associated with a higher risk of sepsis during the first 12hrs of hospital admission Monocyte, Absolute 0.6 103/mcL Normal 0.2 - 1.0 10^3/mcL AO Workflow SS Monocytes/100 WBC (Bld) 6.7 % Normal 1.7 - 13.0 % AO Workflow SS Neutrophil, Absolute 5.2 103/mcL Normal 2.9 - 6 .2 10^3/mcL AO Workflow SS Neutrophils/100 WBC (Bld) 58.6 % Normal 37.0 - 80.0 % AO Workflow SS Platelet mean volume (Bld) [Entitic vol] 7.2 fL Low 7.4 - 10.4 fL AO Workflow SS Platelets (Bld) [#/Vol] 294 103/mcL Normal 130 - 400 10^3/mcL AO Workflow SS Potassium [Moles/Vol] 3.8 mmol/L Normal 3.5 - 5.1 mmol/L AO ADM SS Protein [Mass/Vol] 6.8 G/dL Normal 6.4 - 8.2 G/dL AO ADM SS RBC (Bld) [#/Vol] 4.89 106/mcL Normal 4.04 - 6.1 3 10^6/mcL AO Workflow SS Sodium [Moles/Vol] 139 mmol/L Normal 136 - 145 mmol/L AO ADM SS Urea nitrogen [Mass/Vol] 12 mg/dL Normal 7 - 18 mg/dL AO ADM SS Urea nitrogen/Creatinine [Mass ratio] 13 ratio Normal 7 - 27 ratio AO ADM SS WBC (Bld) [#/Vol] 8.8 103/mcL Normal 4.6 - 10.8 10^3/mcL AO Workflow SS LACon 06-28-2023 Lactic Acid Lvl 1.4 mmol/L Normal 0.4-2.0 [facility] ([place]) Comment on above: Performed By: #### L AC #### [address] [address] LIPon 06-28-2023 Lipase Level 28 U/L Normal 16-77 [facility] ([place]) Comment on above: Performed By: #### C LANI, CORNELIA, KLARISSA, ANURAG, LIP, ANEU, GFR #### [address] [phone] No Panel Informationon 06-28 Microscopic examination of blood, culture Culture has been received in lab and is no growth to date. Routine cultures are held for 5 days. [facility] UAon 06-28-2023 Color (U) Yellow Normal [facility] ([place]) Comment on above: Performed By: #### C LANI, CORNELIA, KLARISSA, ANURAG, LIP, ANEU, GFR #### [address] [address] Glucose (U) [Mass/Vol] Negative Normal Negative [facility] ([place]) Comment on above: Performed By: #### C LANI, CORNELIA, ANURAG CYR, LIP, ANEU, GFR #### [address] [address] Ketones Ql (U) Negative Normal Negative [facility] ([place]) Comment on above: Performed By: #### C LANI, CORNELIA, KLARISSA, ANURAG, LIP, ANEU, GFR #### [address] [address] UA Appear Slightly Cloudy Abnormal Clear [facility] ([place]) Comment on above: Performed By: #### C BC, CORNELIA, ANURAG CYR, LIP, ANEU, GFR #### [address] [address] UA Blood Negative Normal Negative [facility] ([place]) Comment on above: Performed By: #### C BC, CMP, ANURAG CYR, LIP, ANEU, GFR #### [address] [address] UA Leuk Est Negative Normal Negative [facility] ([place]) Comment on above: Performed By: #### C BC, CORNELIA, ANURAG CYR, LIP, ANEU, GFR #### [address] [address] UA Nitrite Negative Normal Negative [facility] ([place]) Comment on above: Performed By: #### C BC, CMP, ANURAG CYR, LIP, ANEU, GFR #### [address] [address] UA pH 7.0 Normal 5.0 - 8.0 [facility] ([place]) Comment on above: Performed By: #### C BC, CORNELIA, ANURAG CYR, LIP, ANEU, GFR #### [address] [address] UA Protein Negative Normal Negative [facility] ([place]) Comment on above: Performed By: #### C BC, CMP, ANURAG CYR, LIP, ANEU, GFR #### [address] [address] UA Spec Grav 1.020 Normal 1.015-1.025 [facility] ([place]) Comment on above: Performed By: #### C BC, CMP, ANURAG CYR, LIP, ANEU, GFR #### [address] [address] UA Specimen Type Clean Catch Normal [facility] ([place]) Comment on above: Performed By: #### C BC, CMP, ANURAG CYR, LIP, ANEU, GFR #### [place] [address] [place], [place] [address] UA Urobilinogen 0.2 E.U./dL Normal 0.2-1.0 [facility] ([place]) Comment on above: Performed By: #### C LANI, CORNELIA, ANURAG CYR, LIP, ANEU, GFR #### [facility] [address] [place], [place] [address] Urobilinogen (U) [Mass/Vol] Negative Normal Negative [facility] ([place]) Comment on above: Performed By: #### C LANI, CORNELIA, ANURAG CYR, LIP, ANEU, GFR #### [facility] [address] [place], [place] [address] CNPNon 06-25-2023 CNPN Telephone (GENSTANLEYN) PATRICK KOROMA ([id number]) 1980 M Date Time Provider Department 06/25/23 MOHAN MILLER During your visit today, we recorded the following information about you: Mohan Miller OCCA 06/25/2023 12:52 PM Signed Reviewed chart for clinic prep. Patient has recent CT in [facility]. Obtained operative reports from [facility], sent for scanningPHILLIP StevensonPMAR Allergies As of Date: 06/25/2023 Noted Allergy Reaction ADHESIVE TAPE-SILICONES 10/23/2016 4 - Hives KEFLEX (CEPHALEXIN) 11/12/2016 4 - Hives KEPPRA (LEVETIRACETAM) 10/23/2016 4 - Hives MORPHINE 10/23/2016 10 - Anaphylaxis NAPROXEN 07/08/2017 4 - Hives Date Reviewed: 01/03/2022 Reviewed by: Ibrahima Schafeer MD - Fully Assessed Reason for Visit: Clinic Prep [Other] Prescriptions as of 06/25/2023 - gabapentin (NEURONTIN) 300 mg capsule Take 1 capsule by mouth three times daily for 90 days. - carBAMazepine XR (TEGRETOL XR) 400 mg 12 hr tablet Take 1 tablet by mouth twice daily. - meloxicam (MOBIC) 15 mg tablet Take 1 tablet by mouth once daily. for pain. Take with food. - methylPREDNISolone (MEDROL DOSE-PACK) 4 mg Dose-Pack As Instructed per package - LORazepam (ATIVAN) 0.5 mg tab To take when he thinks he is going to have a seizure. Problem List As Of Date 06/25/2023 Noted Resolved Post traumatic seizure disorder (HCC) [R56.1] 10/23/2016 Encounter Status:Closed by MOHAN MILLER on 06/25/23 Normal [facility] .Auto Diffon 06-08-2023 Basophil, Absolute 0.1 10 3/mcL Normal 0.0-0.2 [facility] ([place]) Comment on above: Performed By: #### C LANI, CORNELIA, KLARISSA, ANURAG, LIP, ANEU, GFR #### [address] [address] Basophils/100 WBC (Bld) 1.2 % Normal 0.0-2.5 [facility] ([place]) Comment on above: Performed By: #### C LANI, CORNELIA, KLARISSA, ANURAG, LIP, ANEU, GFR #### [address] [address] Eosinophil, Absolute 0.2 10 3/mcL Normal 0.0-0.4 [facility] ([place]) Comment on above: Performed By: #### C LANI, CORNELIA, KLARISSA, ANURAG, LIP, ANEU, GFR #### [address] [address] Eosinophils/100 WBC (Bld) 2.1 % Normal 0.0-7.0 [facility] ([place]) Comment on above: Performed By: #### C LANI, CORNELIA, KLARISSA, ANURAG, LIP, ANEU, GFR #### [address] [address] Lymphocyte, Absolute 2.8 10 3/mcL Normal 0.8-3.9 [facility] ([place]) Comment on above: Performed By: #### C BC, CMP, ADIFF, MDW, LIP, ANEU, GFR #### [address] [address] Lymphocytes/100 WBC (Bld) 26.1 % Normal 10.0-50.0 [facility] ([place]) Comment on above: Performed By: #### C BC, CMP, ADIFF, MDW, LIP, ANEU, GFR #### [address] [address] Monocyte, Absolute 0.6 10 3/mcL Normal 0.2-1.0 [facility] ([place]) Comment on above: Performed By: #### C BC, CMP, ADIFF, MDW, LIP, ANEU, GFR #### [address] [address] Monocytes/100 WBC (Bld) 5.8 % Normal 1.7-13.0 [facility] ([place]) Comment on above: Performed By: #### C BC, CMP, ADIFF, MDW, LIP, ANEU, GFR #### [address] [address] Neutrophils/100 WBC (Bld) 64.8 % Normal 37.0-80.0 [facility] ([place]) Comment on above: Performed By: #### C BC, CMP, ADIFF, MDW, LIP, ANEU, GFR #### [address] [address] .GFRon 06-08-2023 GFR 124 ml/min/1.73sqm Normal [facility] ([place]) Comment on above: Result Comment: GFR Population mean for , Non- Americans Ages 20-29 = 116 mL/min/1.73 sq.m. Ages 30-39 = 107 mL/min/1.73 sq.m. Ages 40-49 = 99 mL/min/1.73 sq.m. Ages 50-59 = 93 mL/min/1.73 sq.m. Ages 60-69 = 85 mL/min/1.73 sq.m. Ages 70+ = 75 mL/min/1.73 sq.m. Chronic Kidney Disease: Less than 60 mL/min/1.73 square meters End Stage Renal Disease: Less than 15 mL/min/1.73 square meters Performed By: #### C BC, CMP, ADIFF, MDW, LIP, ANEU, GFR #### [address] [address] GFR Non- 102 ml/min/1.73sqm Normal [facility] ([place]) Comment on above: Result Comment: GFR Population mean for , Non- Americans Ages 20-29 = 116 mL/min/1.73 sq.m. Ages 30-39 = 107 mL/min/1.73 sq.m. Ages 40-49 = 99 mL/min/1.73 sq.m. Ages 50-59 = 93 mL/min/1.73 sq.m. Ages 60-69 = 85 mL/min/1.73 sq.m. Ages 70+ = 75 mL/min/1.73 sq.m. Chronic Kidney Disease: Less than 60 mL/min/1.73 square meters End Stage Renal Disease: Less than 15 mL/min/1.73 square meters Performed By: #### C BC, CMP, ADIFF, MDW, LIP, ANEU, GFR #### [address] [address] .MDWon 06-08-2023 Monocyte Distribution Width 18.49 Normal 0.00-20.00 [facility] ([place]) Comment on above: Result Comment: For ED adult patients suspected of sepsis, MDW<=20.0 does not rule out sepsis or risk of sepsis Performed By: #### C BC, CMP, ADIFF, MDW, LIP, ANEU, GFR #### [address] [address] .NEUABSon 06-08-2023 Neutrophil, Absolute 6.9 10 3/mcL High 2.9-6.2 [facility] ([place]) Comment on above: Performed By: #### C BC, CMP, ADIFF, MDW, LIP, ANEU, GFR #### [address] [address] BMPon 06-08-2023 BUN/Creatinine Ratio 15 ratio Normal 7-27 [facility] ([place]) Comment on above: Performed By: #### C BC, CMP, ADJAN, MDW, LIP, ANEU, GFR #### [address] [address] Calcium [Mass/Vol] 8.9 mg/dL Normal 8.4-10.2 [facility] ([place]) Comment on above: Performed By: #### C BC, CMP, ADIFF, MDW, LIP, ANEU, GFR #### [address] [address] Chloride [Moles/Vol] 104 mmol/L Normal 98-107 [facility] ([place]) Comment on above: Performed By: #### C BC, CMP, ADJAN, MDW, LIP, ANEU, GFR #### [address] [address] CO2 [Moles/Vol] 26 mmol/L Normal 22-29 [facility] ([place]) Comment on above: Performed By: #### C BC, CMP, ADJAN, MDW, LIP, ANEU, GFR #### [address] [address] Creatinine [Mass/Vol] 0.82 mg/dL Normal 0.70-1.30 [facility] ([place]) Comment on above: Performed By: #### C BC, CMP, ADJAN, MDW, LIP, ANEU, GFR #### [address] [address] Electrolyte Balance 10.0 mEq/L Normal 4.0-15.0 Replaced by [facility] ([place]) Comment on above: Performed By: #### C BC, CMP, KLARISSA, MDW, LIP, ANEU, GFR #### [address] [address] Glucose [Mass/Vol] 110 mg/dL High 70-105 [facility] ([place]) Comment on above: Performed By: #### C BC, CMP, ADIFF, MDW, LIP, ANEU, GFR #### [address] [address] Potassium [Moles/Vol] 4.2 mmol/L Normal 3.5-5.1 [facility] ([place]) Comment on above: Performed By: #### C BC, CMP, ADJAN, MDW, LIP, ANEU, GFR #### [address] [address] Sodium [Moles/Vol] 140 mmol/L Normal 136-145 [facility] ([place]) Comment on above: Performed By: #### C BC, CMP, ADIFF, MDW, LIP, ANEU, GFR #### [address] [address] Urea nitrogen [Mass/Vol] 12 mg/dL Normal 7-18 [facility] ([place]) Comment on above: Performed By: #### C BC, CMP, ADJAN, MDW, LIP, ANEU, GFR #### [place] [id number] CBCon 06-08-2023 Erythrocyte distribution width (RBC) [Ratio] 13.6 % Normal 11.5-14.5 [facility] ([place]) Comment on above: Performed By: #### C BC, CMP, KLARISSA, MDW, LIP, ANEU, GFR #### [address] [address] Hematocrit (Bld) [Volume fraction] 43.4 % Normal 42.0-52.0 [facility] ([place]) Comment on above: Performed By: #### C BC, CMP, KLARISSA, MDW, LIP, ANEU, GFR #### [address] [address] Hgb 14.9 G/dL Normal 14.0-18.0 [facility] ([place]) Comment on above: Performed By: #### C BC, CMP, ADJAN, MDW, LIP, ANEU, GFR #### [address] [address] MCH (RBC) [Entitic mass] 31.1 pg Normal 27.0-31.2 [facility] ([place]) Comment on above: Performed By: #### C BC, CMP, ADIFF, MDW, LIP, ANEU, GFR #### [address] [address] MCHC 34.4 G/dL Normal 31.8-35.4 [facility] ([place]) Comment on above: Performed By: #### C BC, CMP, ADIFF, MDW, LIP, ANEU, GFR #### [address] [address] MCV (RBC) [Entitic vol] 90.5 fL Normal 80.0-94.0 [facility] ([place]) Comment on above: Performed By: #### C BC, CMP, ADIFF, MDW, LIP, ANEU, GFR #### [place] [id number] Platelet 283 10 3/mcL Normal 130-400 [facility] ([place]) Comment on above: Performed By: #### C BC, CMP, ADIFF, MDW, LIP, ANEU, GFR #### [place] [id number] Platelet mean volume (Bld) [Entitic vol] 8.0 fL Normal 7.4-10.4 [facility] ([place]) Comment on above: Performed By: #### C BC, CMP, ADIFF, MDW, LIP, ANEU, GFR #### [address] [address] RBC 4.80 10 6/mcL Normal 4.04-6.13 [facility] ([place]) Comment on above: Performed By: #### C BC, CMP, ADIFF, MDW, LIP, ANEU, GFR #### [place] [address] WBC 10.6 10 3/mcL Normal 4.6-10.8 [facility] ([place]) Comment on above: Performed By: #### C BC, CMP, ADIFF, MDW, LIP, ANEU, GFR #### [place] [id number] LABORATORYOrdered By: SYSTEM SYSTEM on 06-08-2023 Basophil, Absolute 0.1 103/mcL Normal 0.0 - 0.2 10^3/mcL AO Workflow SS Basophils/100 WBC (Bld) 1.2 % Normal 0.0 - 2.5 % AO Workflow SS Calcium [Mass/Vol] 8.9 mg/dL Normal 8.4 - 10. 2 mg/dL AO ADM SS Chloride [Moles/Vol] 104 mmol/L Normal 98 - 10 7 mmol/L AO ADM SS CO2 [Moles/Vol] 26 mmol/L Normal 22 - 29 mmol/L AO ADM SS Creatinine [Mass/Vol] 0.82 mg/dL Normal 0.70 - 1.30 mg/dL AO ADM SS Electrolyte Balance 10.0 mEq/L Normal 4.0 - 15 .0 mEq/L AO ADM SS Eosinophil, Absolute 0.2 103/mcL Normal 0.0 - 0 .4 10^3/mcL AO Workflow SS Eosinophils/100 WBC (Bld) 2.1 % Normal 0.0 - 7.0 % AO Workflow SS Erythrocyte distribution width (RBC) [Ratio] 13.6 % Normal 11.5 - 14.5 % AO Workflow SS GFR/1.73 sq M.predicted among blacks MDRD (S/P/Bld) [Vol rate/Area] 124 ml/min/1.73sqm Invalid Interpretation Code AO Chemistry S Comment on above: Interpretive Data: GFR Population mean for , Non- Americans Ages 20-29 = 116 mL/min/1.73 sq.m. Ages 30-39 = 107 mL/min/1.73 sq.m. Ages 40-49 = 99 mL/min/1.73 sq.m. Ages 50-59 = 93 mL/min/1.73 sq.m. Ages 60-69 = 85 mL/min/1.73 sq.m. Ages 70+ = 75 mL/min/1.73 sq.m. Chronic Kidney Disease: Less than 60 mL/min/1.73 square meters End Stage Renal Disease: Less than 15 mL/min/1.73 square meters GFR/1.73 sq M.predicted among non-blacks MDRD (S/P/Bld) [Vol rate/Area] 102 ml/min/1.73sqm Invalid Interpretation Code AO Chemistry S Comment on above: Interpretive Data: GFR Population mean for , Non- Americans Ages 20-29 = 116 mL/min/1.73 sq.m. Ages 30-39 = 107 mL/min/1.73 sq.m. Ages 40-49 = 99 mL/min/1.73 sq.m. Ages 50-59 = 93 mL/min/1.73 sq.m. Ages 60-69 = 85 mL/min/1.73 sq.m. Ages 70+ = 75 mL/min/1.73 sq.m. Chronic Kidney Disease: Less than 60 mL/min/1.73 square meters End Stage Renal Disease: Less than 15 mL/min/1.73 square meters Glucose [Mass/Vol] 110 mg/dL High 70 - 105 mg/dL AO ADM SS Hematocrit (Bld) [Volume fraction] 43.4 % Normal 42.0 - 52.0 % AO Workflow SS Hemoglobin (Bld) [Mass/Vol] 14.9 G/dL Normal 14.0 - 18.0 G/dL AO Workflow SS Lymphocyte, Absolute 2.8 103/mcL Normal 0.8 - 3 .9 10^3/mcL AO Workflow SS Lymphocytes/100 WBC (Bld) 26.1 % Normal 10.0 - 50.0 % AO Workflow SS MCH (RBC) [Entitic mass] 31.1 pg Normal 27.0 - 31.2 pg AO Workflow SS MCHC 34.4 G/dL Normal 31.8 - 35.4 G/dL AO Workflow SS MCV (RBC) [Entitic vol] 90.5 fL Normal 80.0 - 94.0 fL AO Workflow SS Monocyte distribution width Auto (Bld) [Entitic vol] 18.49 1 Normal 0.00 - 20.00 AO Workflow SS Comment on above: Result Comment: For ED adult patients suspected of sepsis, MDW<=20.0 does not rule out sepsis or risk of sepsis Monocyte, Absolute 0.6 103/mcL Normal 0.2 - 1.0 10^3/mcL AO Workflow SS Monocytes/100 WBC (Bld) 5.8 % Normal 1.7 - 13.0 % AO Workflow SS Neutrophil, Absolute 6.9 103/mcL High 2.9 - 6 .2 10^3/mcL AO Workflow SS Neutrophils/100 WBC (Bld) 64.8 % Normal 37.0 - 80.0 % AO Workflow SS Platelet mean volume (Bld) [Entitic vol] 8.0 fL Normal 7.4 - 10.4 fL AO Workflow SS Platelets (Bld) [#/Vol] 283 103/mcL Normal 130 - 400 10^3/mcL AO Workflow SS Potassium [Moles/Vol] 4.2 mmol/L Normal 3.5 - 5.1 mmol/L AO ADM SS RBC (Bld) [#/Vol] 4.80 106/mcL Normal 4.04 - 6.1 3 10^6/mcL AO Workflow SS Sodium [Moles/Vol] 140 mmol/L Normal 136 - 145 mmol/L AO ADM SS Urea nitrogen [Mass/Vol] 12 mg/dL Normal 7 - 18 mg/dL AO ADM SS Urea nitrogen/Creatinine [Mass ratio] 15 ratio Normal 7 - 27 ratio AO ADM SS WBC (Bld) [#/Vol] 10.6 103/mcL Normal 4.6 - 10.8 10^3/mcL AO Workflow SS .GFRon 05-17-2023 GFR 111 ml/min/1.73sqm Normal [facility] ([place]) Comment on above: Result Comment: GFR Population mean for , Non- Americans Ages 20-29 = 116 mL/min/1.73 sq.m. Ages 30-39 = 107 mL/min/1.73 sq.m. Ages 40-49 = 99 mL/min/1.73 sq.m. Ages 50-59 = 93 mL/min/1.73 sq.m. Ages 60-69 = 85 mL/min/1.73 sq.m. Ages 70+ = 75 mL/min/1.73 sq.m. Chronic Kidney Disease: Less than 60 mL/min/1.73 square meters End Stage Renal Disease: Less than 15 mL/min/1.73 square meters Performed By: #### C BC, CMP, ADJAN, MDW, LIP, ANEU, GFR #### [address] [address] GFR Non- 92 ml/min/1.73sqm Normal [facility] ([place]) Comment on above: Result Comment: GFR Population mean for , Non- Americans Ages 20-29 = 116 mL/min/1.73 sq.m. Ages 30-39 = 107 mL/min/1.73 sq.m. Ages 40-49 = 99 mL/min/1.73 sq.m. Ages 50-59 = 93 mL/min/1.73 sq.m. Ages 60-69 = 85 mL/min/1.73 sq.m. Ages 70+ = 75 mL/min/1.73 sq.m. Chronic Kidney Disease: Less than 60 mL/min/1.73 square meters End Stage Renal Disease: Less than 15 mL/min/1.73 square meters Performed By: #### C BC, CMP, KLARISSA, MDW, LIP, ANEU, GFR #### [address] [address] BMPon 05-17-2023 BUN/Creatinine Ratio 14 ratio Normal 7-27 [facility] ([place]) Comment on above: Performed By: #### C BC, CMP, KLARISSA, MDW, LIP, ANEU, GFR #### [address] [address] Calcium [Mass/Vol] 9.5 mg/dL Normal 8.4-10.2 [facility] ([place]) Comment on above: Performed By: #### C BC, CMP, KLARISSA, MDW, LIP, ANEU, GFR #### [address] [address] Chloride [Moles/Vol] 103 mmol/L Normal 98-107 [facility] ([place]) Comment on above: Performed By: #### C BC, CMP, KLARISSA, MDW, LIP, ANEU, GFR #### [address] [address] CO2 [Moles/Vol] 24 mmol/L Normal 22-29 [facility] ([place]) Comment on above: Performed By: #### C BC, CMP, KLARISSA, MDW, LIP, ANEU, GFR #### [address] [address] Creatinine [Mass/Vol] 0.90 mg/dL Normal 0.70-1.30 [facility] ([place]) Comment on above: Performed By: #### C BC, CMP, ADJAN, MDW, LIP, ANEU, GFR #### [address] [address] Electrolyte Balance 15.0 mEq/L Normal 4.0-15.0 Replaced by [facility] ([place]) Comment on above: Performed By: #### C BC, CMP, ADIFF, MDW, LIP, ANEU, GFR #### [address] [address] Glucose [Mass/Vol] 98 mg/dL Normal 70-105 [facility] ([place]) Comment on above: Performed By: #### C BC, CMP, ADIFF, MDW, LIP, ANEU, GFR #### [address] [address] Potassium [Moles/Vol] 4.6 mmol/L Normal 3.5-5.1 [facility] ([place]) Comment on above: Performed By: #### C BC, CMP, ADIFF, MDW, LIP, ANEU, GFR #### [address] [address] Sodium [Moles/Vol] 142 mmol/L Normal 136-145 [facility] ([place]) Comment on above: Performed By: #### C BC, CMP, ADIFF, MDW, LIP, ANEU, GFR #### [address] [address] Urea nitrogen [Mass/Vol] 13 mg/dL Normal 7-18 [facility] ([place]) Comment on above: Performed By: #### C BC, CMP, ADIFF, MDW, LIP, ANEU, GFR #### [address] [address] [address] ABD/PELVIS W/ IV CONTRAST ONLYon 05-17-2023 CT ABD/PELVIS W/ IV CONTRAST ONLY ORIGINAL EXAMINATION: CT OF THE ABDOMEN AND PELVIS WITH CONTRAST 05/16/2023 9:18 pm TECHNIQUE: CT of the abdomen and pelvis was performed with the administration of intravenous contrast. Multiplanar reformatted images are provided for review. Automated exposure control, iterative reconstruction, and/or weight based adjustment of the mA/kV was utilized to reduce the radiation dose to as low as reasonably achievable. COMPARISON: CT abdomen and pelvis 02/12/2023 HISTORY: ORDERING SYSTEM PROVIDED HISTORY: Reason for Exam: abdominal pain Hernia repair x3, appendectomy FINDINGS: Multilevel degenerative changes throughout the spine. Small bilateral fat containing inguinal hernias. There is a midline abdominal surgical scar. Within the left lower quadrant there is soft tissue induration with focal lentiform shaped thickening/enlargemen t of the medial aspect of the left external oblique, most likely representing a hematoma. The hematoma measures up to 6.9 x 1.9 x 3.9 cm. The included lung bases are clear. The liver, spleen, pancreas and both adrenal glands are unremarkable. The gallbladder is contracted. Symmetric nephrograms. No hydronephrosis or nephrolithiasis. Subcentimeter hypodense exophytic left upper pole renal lesion is too small to characterize but statistically represents a cyst. The bladder is not well distended. The prostate is unremarkable. The small bowel is normal caliber and without evidence of inflammatory change. The large bowel is unremarkable. The appendix is surgically absent. No free air or free fluid. The aorta is mildly atherosclerotic and nonaneurysmal. No pathologically enlarged lymph nodes. IMPRESSION: 6.9 cm left external oblique hematoma with mild adjacent soft tissue edema. I have personally reviewed the images of this examination and agree with the resident's findings and interpretation. Interpreted by: Carlo Luke Preliminary Report By: Zoila Mabry Electronically signed By Carlo Luke Dictated Date: 05/16/2023 9:41:49 PM Prelim Date: 05/16/2023 10:07:10 PM Sign Date: 05/16/2023 10:45:51 PM Ordering Provider: TOI Nelson [facility] ([place]) .Auto Diffon 05-16-2023 Basophil, Absolute 0.1 10 3/mcL Normal 0.0-0.2 [facility] ([place]) Comment on above: Performed By: #### C LANI, KLARISSA LOCKE MDW, LIP, ANEU, GFR #### [place] [address] [place], [place] [address] Basophils/100 WBC (Bld) 1.1 % Normal 0.0-2.5 [facility] ([place]) Comment on above: Performed By: #### C LANI, KLARISSA LOCKE MDW, LIP, ANEU, GFR #### [address] [address] Eosinophil, Absolute 0.3 10 3/mcL Normal 0.0-0.4 [facility] ([place]) Comment on above: Performed By: #### C BC, CMP, ADIFF, MDW, LIP, ANEU, GFR #### [address] [address] Eosinophils/100 WBC (Bld) 1.9 % Normal 0.0-7.0 [facility] ([place]) Comment on above: Performed By: #### C BC, CMP, ADIFF, MDW, LIP, ANEU, GFR #### [address] [address] Lymphocyte, Absolute 3.4 10 3/mcL Normal 0.8-3.9 [facility] ([place]) Comment on above: Performed By: #### C BC, CMP, ADIFF, MDW, LIP, ANEU, GFR #### [address] [address] Lymphocytes/100 WBC (Bld) 25.6 % Normal 10.0-50.0 [facility] ([place]) Comment on above: Performed By: #### C BC, CMP, ADIFF, MDW, LIP, ANEU, GFR #### [address] [address] Monocyte, Absolute 0.8 10 3/mcL Normal 0.2-1.0 [facility] ([place]) Comment on above: Performed By: #### C BC, CMP, ADIFF, MDW, LIP, ANEU, GFR #### [address] [address] Monocytes/100 WBC (Bld) 6.0 % Normal 1.7-13.0 [facility] ([place]) Comment on above: Performed By: #### C BC, CMP, ADIFF, MDW, LIP, ANEU, GFR #### [address] [address] Neutrophils/100 WBC (Bld) 65.4 % Normal 37.0-80.0 [facility] ([place]) Comment on above: Performed By: #### C BC, CORNELIA, KLARISSA, ANURAG, LIP, ANEU, GFR #### [address] [address] .GFRon 05-16-2023 GFR 98 ml/min/1.73sqm Normal [facility] ([place]) Comment on above: Result Comment: GFR Population mean for , Non- Americans Ages 20-29 = 116 mL/min/1.73 sq.m. Ages 30-39 = 107 mL/min/1.73 sq.m. Ages 40-49 = 99 mL/min/1.73 sq.m. Ages 50-59 = 93 mL/min/1.73 sq.m. Ages 60-69 = 85 mL/min/1.73 sq.m. Ages 70+ = 75 mL/min/1.73 sq.m. Chronic Kidney Disease: Less than 60 mL/min/1.73 square meters End Stage Renal Disease: Less than 15 mL/min/1.73 square meters Performed By: #### C BC, CMP, KLARISSA, ANURAG, LIP, ANEU, GFR #### [address] [address] GFR Non- 81 ml/min/1.73sqm Normal [facility] ([place]) Comment on above: Result Comment: GFR Population mean for , Non- Americans Ages 20-29 = 116 mL/min/1.73 sq.m. Ages 30-39 = 107 mL/min/1.73 sq.m. Ages 40-49 = 99 mL/min/1.73 sq.m. Ages 50-59 = 93 mL/min/1.73 sq.m. Ages 60-69 = 85 mL/min/1.73 sq.m. Ages 70+ = 75 mL/min/1.73 sq.m. Chronic Kidney Disease: Less than 60 mL/min/1.73 square meters End Stage Renal Disease: Less than 15 mL/min/1.73 square meters Performed By: #### C BC, CMP, KLARISSA, W, LIP, ANEU, GFR #### [address] [address] .MDWon 05-16-2023 Monocyte Distribution Width 17.52 Normal 0.00-20.00 [facility] ([place]) Comment on above: Result Comment: For ED adult patients suspected of sepsis, MDW<=20.0 does not rule out sepsis or risk of sepsis Performed By: #### C BC, CMP, ADIFF, MDW, LIP, ANEU, GFR #### [address] [address] .NEUABSon 05-16-2023 Neutrophil, Absolute 8.7 10 3/mcL High 2.9-6.2 [facility] ([place]) Comment on above: Performed By: #### C BC, CMP, ADIFF, MDW, LIP, ANEU, GFR #### [place] [address] CBCon 05-16-2023 Erythrocyte distribution width (RBC) [Ratio] 13.4 % Normal 11.5-14.5 [facility] ([place]) Comment on above: Performed By: #### C BC, CMP, ADIFF, MDW, LIP, ANEU, GFR #### [place] [address] Hematocrit (Bld) [Volume fraction] 45.6 % Normal 42.0-52.0 [facility] ([place]) Comment on above: Performed By: #### C BC, CMP, ADIFF, MDW, LIP, ANEU, GFR #### [place] [address] Hgb 15.6 G/dL Normal 14.0-18.0 [facility] ([place]) Comment on above: Performed By: #### C BC, CMP, ADIFF, MDW, LIP, ANEU, GFR #### [place] [address] MCH (RBC) [Entitic mass] 30.9 pg Normal 27.0-31.2 [facility]) Comment on above: Performed By: #### C BC, CMP, ADIFF, MDW, LIP, ANEU, GFR #### [place] [address] MCHC 34.1 G/dL Normal 31.8-35.4 [facility] ([place]) Comment on above: Performed By: #### C BC, CMP, KLARISSA, MDW, LIP, ANEU, GFR #### [address] [address] MCV (RBC) [Entitic vol] 90.6 fL Normal 80.0-94.0 [facility] ([place]) Comment on above: Performed By: #### C BC, CMP, KLARISSA, MDW, LIP, ANEU, GFR #### [address] [address] Platelet 303 10 3/mcL Normal 130-400 [facility] ([place]) Comment on above: Performed By: #### C BC, CMP, KLARISSA, MDW, LIP, ANEU, GFR #### [address] [address] Platelet mean volume (Bld) [Entitic vol] 7.3 fL Low 7.4-10.4 [facility] ([place]) Comment on above: Performed By: #### C BC, CMP, KLARISSA, MDW, LIP, ANEU, GFR #### [address] [address] RBC 5.04 10 6/mcL Normal 4.04-6.13 [facility] ([place]) Comment on above: Performed By: #### C BC, CMP, KLARISSA, MDW, LIP, ANEU, GFR #### [address] [address] WBC 13.3 10 3/mcL High 4.6-10.8 [facility] ([place]) Comment on above: Performed By: #### C BC, CMP, KLARISSA, MDW, LIP, ANEU, GFR #### [address] [address] CMPon 05-16-2023 Albumin Level 3.4 G/dL Low 3.5-5.0 [facility] ([place]) Comment on above: Performed By: #### C BC, CMP, KLARISSA, MDW, LIP, ANEU, GFR #### [address] [address] Albumin/Globulin [Mass ratio] 0.9 {ratio} Low 1.1-2.5 [facility] ([place]) Comment on above: Performed By: #### C BC, CMP, ADJAN, MDW, LIP, ANEU, GFR #### [address] [address] ALP [Catalytic activity/Vol] 47 U/L Normal 40-135 [facility] ([place]) Comment on above: Performed By: #### C BC, CMP, ADJAN, MDW, LIP, ANEU, GFR #### [address] [address] ALT [Catalytic activity/Vol] 23 U/L Normal 16-63 [facility] ([place]) Comment on above: Performed By: #### C BC, CMP, ADJAN, MDW, LIP, ANEU, GFR #### [address] [address] AST [Catalytic activity/Vol] 21 U/L Normal 10-40 [facility] ([place]) Comment on above: Performed By: #### C BC, CMP, KLARISSA, MDW, LIP, ANEU, GFR #### [address] [address] Bili Total 0.2 mg/dL Normal 0.2-1.0 [facility] ([place]) Comment on above: Result Comment: Use of this assay is not recommended for patients undergoing treatment with eltrombopag due to the potential for falsely elevated results. Performed By: #### C BC, CMP, ADIFF, MDW, LIP, ANEU, GFR #### [address] [address] BUN/Creatinine Ratio 14 ratio Normal 7-27 [facility] ([place]) Comment on above: Performed By: #### C BC, CMP, ADJAN, MDW, LIP, ANEU, GFR #### [address] [address] Calcium [Mass/Vol] 9.3 mg/dL Normal 8.4-10.2 [facility] ([place]) Comment on above: Performed By: #### C BC, CMP, ADIFF, MDW, LIP, ANEU, GFR #### [address] [address] Chloride [Moles/Vol] 96 mmol/L Low 98-107 [facility] ([place]) Comment on above: Performed By: #### C BC, CMP, ADIFF, MDW, LIP, ANEU, GFR #### [address] [address] CO2 [Moles/Vol] 24 mmol/L Normal 22-29 [facility] ([place]) Comment on above: Performed By: #### C BC, CMP, ADIFF, MDW, LIP, ANEU, GFR #### [address] [address] Creatinine [Mass/Vol] 1.00 mg/dL Normal 0.70-1.30 [facility] ([place]) Comment on above: Performed By: #### C BC, CMP, ADIFF, MDW, LIP, ANEU, GFR #### [address] [address] Electrolyte Balance 6.0 mEq/L Normal 4.0-15.0 Replaced by [facility] ([place]) Comment on above: Performed By: #### C BC, CMP, ADIFF, MDW, LIP, ANEU, GFR #### [address] [address] Globulin 3.8 G/dL Normal [facility] ([place]) Comment on above: Performed By: #### C BC, CMP, ADIFF, MDW, LIP, ANEU, GFR #### [address] [address] Glucose [Mass/Vol] 121 mg/dL High 70-105 [facility] ([place]) Comment on above: Performed By: #### C BC, CMP, ADIFF, MDW, LIP, ANEU, GFR #### [address] [address] Potassium [Moles/Vol] 3.8 mmol/L Normal 3.5-5.1 [facility] ([place]) Comment on above: Performed By: #### C LANI, CORNELIA, KLARISSA, ANURAG, LIP, ANEU, GFR #### [place] [address] [place], [place] [address] Sodium [Moles/Vol] 126 mmol/L Low 136-145 [facility] ([place]) Comment on above: Performed By: #### C LANI, CORNELIA, KLARISSA, ANURGA, LIP, ANEU, GFR #### [place] [address] [place], [place] [address] Total Protein 7.2 G/dL Normal 6.4-8.2 [facility] ([place]) Comment on above: Performed By: #### C LANI, CORNELIA, KLARISSA, ANURAG, LIP, ANEU, GFR #### [place] [address] [place], [place] [address] Urea nitrogen [Mass/Vol] 14 mg/dL Normal 7-18 [facility] ([place]) Comment on above: Performed By: #### C LANI, CORNELIA, KLARISSA, ANURAG, LIP, ANEU, GFR #### [place] [address] [place], [place] [address] LABORATORYOrdered By: SYSTEM SYSTEM on 05-16-2023 Albumin BCP dye [Mass/Vol] 3.4 G/dL Low 3.5 - 5.0 G/dL AO ADM SS Albumin/Globulin [Mass ratio] 0.9 {ratio} Low 1.1 - 2.5 ratio AO ADM SS ALP [Catalytic activity/Vol] 47 U/L Normal 40 - 135 U/L AO ADM SS ALT With P-5'-P [Catalytic activity/Vol] 23 U/L Normal 16 - 63 U/L AO ADM SS AST With P-5'-P [Catalytic activity/Vol] 21 U/L Normal 10 - 40 U/L AO ADM SS Basophil, Absolute 0.1 103/mcL Normal 0.0 - 0.2 10^3/mcL AO Workflow SS Basophils/100 WBC (Bld) 1.1 % Normal 0.0 - 2.5 % AO Workflow SS Bilirubin [Mass/Vol] 0.2 mg/dL Normal 0.2 - 1 .0 mg/dL AO ADM SS Comment on above: Interpretive Data: U se of this assay is not recommended for patients undergoing treatment with eltrombopag due to the potential for falsely elevated results. Calcium [Mass/Vol] 9.3 mg/dL Normal 8.4 - 10. 2 mg/dL AO ADM SS Chloride [Moles/Vol] 96 mmol/L Low 98 - 10 7 mmol/L AO ADM SS CO2 [Moles/Vol] 24 mmol/L Normal 22 - 29 mmol/L AO ADM SS Creatinine [Mass/Vol] 1.00 mg/dL Normal 0.70 - 1.30 mg/dL AO ADM SS Electrolyte Balance 6.0 mEq/L Normal 4.0 - 15 .0 mEq/L AO ADM SS Eosinophil, Absolute 0.3 103/mcL Normal 0.0 - 0 .4 10^3/mcL AO Workflow SS Eosinophils/100 WBC (Bld) 1.9 % Normal 0.0 - 7.0 % AO Workflow SS Erythrocyte distribution width (RBC) [Ratio] 13.4 % Normal 11.5 - 14.5 % AO Workflow SS GFR/1.73 sq M.predicted among blacks MDRD (S/P/Bld) [Vol rate/Area] 98 ml/min/1.73sqm Invalid Interpretation Code AO Chemistry S Comment on above: Interpretive Data: GFR Population mean for , Non- Americans Ages 20-29 = 116 mL/min/1.73 sq.m. Ages 30-39 = 107 mL/min/1.73 sq.m. Ages 40-49 = 99 mL/min/1.73 sq.m. Ages 50-59 = 93 mL/min/1.73 sq.m. Ages 60-69 = 85 mL/min/1.73 sq.m. Ages 70+ = 75 mL/min/1.73 sq.m. Chronic Kidney Disease: Less than 60 mL/min/1.73 square meters End Stage Renal Disease: Less than 15 mL/min/1.73 square meters GFR/1.73 sq M.predicted among non-blacks MDRD (S/P/Bld) [Vol rate/Area] 81 ml/min/1.73sqm Invalid Interpretation Code AO Chemistry S Comment on above: Interpretive Data: GFR Population mean for , Non- Americans Ages 20-29 = 116 mL/min/1.73 sq.m. Ages 30-39 = 107 mL/min/1.73 sq.m. Ages 40-49 = 99 mL/min/1.73 sq.m. Ages 50-59 = 93 mL/min/1.73 sq.m. Ages 60-69 = 85 mL/min/1.73 sq.m. Ages 70+ = 75 mL/min/1.73 sq.m. Chronic Kidney Disease: Less than 60 mL/min/1.73 square meters End Stage Renal Disease: Less than 15 mL/min/1.73 square meters Globulin 3.8 G/dL Invalid Interpretation Code AO ADM SS Glucose [Mass/Vol] 121 mg/dL High 70 - 105 mg/dL AO ADM SS Hematocrit (Bld) [Volume fraction] 45.6 % Normal 42.0 - 52.0 % AO Workflow SS Hemoglobin (Bld) [Mass/Vol] 15.6 G/dL Normal 14.0 - 18.0 G/dL AO Workflow SS Lipase [Catalytic activity/Vol] 20 U/L Normal 16 - 77 U/L AO ADM SS Lymphocyte, Absolute 3.4 103/mcL Normal 0.8 - 3 .9 10^3/mcL AO Workflow SS Lymphocytes/100 WBC (Bld) 25.6 % Normal 10.0 - 50.0 % AO Workflow SS MCH (RBC) [Entitic mass] 30.9 pg Normal 27.0 - 31.2 pg AO Workflow SS MCHC 34.1 G/dL Normal 31.8 - 35.4 G/dL AO Workflow SS MCV (RBC) [Entitic vol] 90.6 fL Normal 80.0 - 94.0 fL AO Workflow SS Monocyte distribution width Auto (Bld) [Entitic vol] 17.52 1 Normal 0.00 - 20.00 AO Workflow SS Comment on above: Result Comment: For ED adult patients suspected of sepsis, MDW<=20.0 does not rule out sepsis or risk of sepsis Monocyte, Absolute 0.8 103/mcL Normal 0.2 - 1.0 10^3/mcL AO Workflow SS Monocytes/100 WBC (Bld) 6.0 % Normal 1.7 - 13.0 % AO Workflow SS Neutrophil, Absolute 8.7 103/mcL High 2.9 - 6 .2 10^3/mcL AO Workflow SS Neutrophils/100 WBC (Bld) 65.4 % Normal 37.0 - 80.0 % AO Workflow SS Platelet mean volume (Bld) [Entitic vol] 7.3 fL Low 7.4 - 10.4 fL AO Workflow SS Platelets (Bld) [#/Vol] 303 103/mcL Normal 130 - 400 10^3/mcL AO Workflow SS Potassium [Moles/Vol] 3.8 mmol/L Normal 3.5 - 5.1 mmol/L AO ADM SS Protein [Mass/Vol] 7.2 G/dL Normal 6.4 - 8.2 G/dL AO ADM SS RBC (Bld) [#/Vol] 5.04 106/mcL Normal 4.04 - 6.1 3 10^6/mcL AO Workflow SS Sodium [Moles/Vol] 126 mmol/L Low 136 - 145 mmol/L AO ADM SS Urea nitrogen [Mass/Vol] 14 mg/dL Normal 7 - 18 mg/dL AO ADM SS Urea nitrogen/Creatinine [Mass ratio] 14 ratio Normal 7 - 27 ratio AO ADM SS WBC (Bld) [#/Vol] 13.3 103/mcL High 4.6 - 10.8 10^3/mcL AO Workflow SS LABORATORYOrdered By: Maggie Dallas on 05-16-2023 Appearance (U) Clear (05/16/23 8:30 PM) Normal Clear AO Auto Urine SS Bilirubin Ql (U) Negative (05/16/23 8:30 PM) Normal Negative AO Auto Urine SS Color (U) Yellow (05/16/23 8:30 PM) Normal AO Auto Urine SS Glucose Test strip (U) [Mass/Vol] Negative Normal Negative AO Auto Urine SS Hemoglobin Auto test strip (U) [Mass/Vol] Negative (05/16/23 8:30 PM) Normal Negative AO Auto Urine SS Ketones Ql (U) Negative Normal Negative AO Auto Ur ine SS UA Leuk Est Negative (05/16/23 8:30 PM) Normal Negative AO Auto Urine SS UA Nitrite Negative (05/16/23 8:30 PM) Normal Negative AO Auto Urine SS UA pH 6.0 (05/16/23 8:30 PM) Normal 5.0 - 8.0 AO Auto Urine SS UA Protein Negative Normal Negative AO Auto Urine SS UA Spec Grav >=1.030 *ABN* (05/16/23 8:30 PM) Invalid Interpretation Code 1.015-1.025 AO Auto Urine SS UA Specimen Type Clean Catch (05/16/23 8:30 PM) Normal AO Auto Urine SS UA Urobilinogen 0.2 E.U./dL Normal 0.2-1.0 AO Auto Urine SS LIPon 05-16-2023 Lipase Level 20 U/L Normal 16-77 [facility] ([place]) Comment on above: Performed By: #### C BC, CMP, ADIFF, MDW, LIP, ANEU, GFR #### [address] [address] UAon 05-16-2023 Color (U) Yellow Normal [facility] ([place]) Comment on above: Performed By: #### U A #### [address] [id number] Glucose (U) [Mass/Vol] Negative Normal Negative [facility] ([place]) Comment on above: Performed By: #### U A #### [address] [address] Ketones Ql (U) Negative Normal Negative [facility] ([place]) Comment on above: Performed By: #### U A #### [address] [address] [address] UA Appear Clear Normal Clear [facility] ([place]) Comment on above: Performed By: #### U A #### [address] [address] UA Blood Negative Normal Negative [facility] ([place]) Comment on above: Performed By: #### U A #### [address] [address] UA Leuk Est Negative Normal Negative [facility] ([place]) Comment on above: Performed By: #### U A #### [address] [address] UA Nitrite Negative Normal Negative [facility] ([place]) Comment on above: Performed By: #### U A #### [address] [address] UA pH 6.0 Normal 5.0 - 8.0 [facility] ([place]) Comment on above: Performed By: #### U A #### [address] [address] UA Protein Negative Normal Negative [facility] ([place]) Comment on above: Performed By: #### U A #### [address] [address] UA Spec Grav >=1.030 Abnormal 1.015-1.025 [facility] ([place]) Comment on above: Performed By: #### U A #### [address] [address] UA Specimen Type Clean Catch Normal [facility] ([place]) Comment on above: Performed By: #### U A #### [address] [address] UA Urobilinogen 0.2 E.U./dL Normal 0.2-1.0 [facility] ([place]) Comment on above: Performed By: #### U A #### [address] [address] Urobilinogen (U) [Mass/Vol] Negative Normal Negative [facility] ([place]) Comment on above: Performed By: #### U A #### [address] [address] .Auto Diffon 02-12-2023 Basophil, Absolute 0.1 10 3/mcL Normal 0.0-0.2 [facility]) Comment on above: Performed By: #### C CORNELIA GARIBAY ADIFF, MDW, LIP, ANEU, GFR #### [address] [address] Basophils/100 WBC (Bld) 1.2 % Normal 0.0-2.5 [facility]) Comment on above: Performed By: #### C CORNELIA GARIBAY ADIFF, MDW, LIP, ANEU, GFR #### [address] [address] Eosinophil, Absolute 0.1 10 3/mcL Normal 0.0-0.4 [facility] ([place]) Comment on above: Performed By: #### C BC, CMP, ADIFF, MDW, LIP, ANEU, GFR #### [address] [address] Eosinophils/100 WBC (Bld) 1.4 % Normal 0.0-7.0 [facility] ([place]) Comment on above: Performed By: #### C BC, CMP, ADIFF, MDW, LIP, ANEU, GFR #### [address] [address] Lymphocyte, Absolute 3.3 10 3/mcL Normal 0.8-3.9 [facility] ([place]) Comment on above: Performed By: #### C BC, CMP, ADIFF, MDW, LIP, ANEU, GFR #### [address] [address] Lymphocytes/100 WBC (Bld) 35.7 % Normal 10.0-50.0 [facility] ([place]) Comment on above: Performed By: #### C BC, CMP, ADIFF, MDW, LIP, ANEU, GFR #### [address] [address] Monocyte, Absolute 0.5 10 3/mcL Normal 0.2-1.0 [facility] ([place]) Comment on above: Performed By: #### C BC, CMP, ADIFF, MDW, LIP, ANEU, GFR #### [address] [address] Monocytes/100 WBC (Bld) 5.1 % Normal 1.7-13.0 [facility] ([place]) Comment on above: Performed By: #### C BC, CMP, ADIFF, MDW, LIP, ANEU, GFR #### [address] [address] Neutrophils/100 WBC (Bld) 56.6 % Normal 37.0-80.0 [facility] ([place]) Comment on above: Performed By: #### C BC, CMP, ADIFF, MDW, LIP, ANEU, GFR #### [address] [address] .GFRon 02-12-2023 GFR Non- 121 ml/min/1.73sqm Normal [facility] ([place]) Comment on above: Result Comment: GFR Population mean for , Non- Americans Ages 20-29 = 116 mL/min/1.73 sq.m. Ages 30-39 = 107 mL/min/1.73 sq.m. Ages 40-49 = 99 mL/min/1.73 sq.m. Ages 50-59 = 93 mL/min/1.73 sq.m. Ages 60-69 = 85 mL/min/1.73 sq.m. Ages 70+ = 75 mL/min/1.73 sq.m. Chronic Kidney Disease: Less than 60 mL/min/1.73 square meters End Stage Renal Disease: Less than 15 mL/min/1.73 square meters Performed By: #### C BC, CMP, KLARISSA, ANURAG, LIP, ANEU, GFR #### [address] [address] GFR 146 ml/min/1.73sqm Normal [facility] ([place]) Comment on above: Result Comment: GFR Population mean for , Non- Americans Ages 20-29 = 116 mL/min/1.73 sq.m. Ages 30-39 = 107 mL/min/1.73 sq.m. Ages 40-49 = 99 mL/min/1.73 sq.m. Ages 50-59 = 93 mL/min/1.73 sq.m. Ages 60-69 = 85 mL/min/1.73 sq.m. Ages 70+ = 75 mL/min/1.73 sq.m. Chronic Kidney Disease: Less than 60 mL/min/1.73 square meters End Stage Renal Disease: Less than 15 mL/min/1.73 square meters Performed By: #### C BC, CMP, KLARISSA, ANURAG, LIP, ANEU, GFR #### [address] [address] .MDWon 02-12-2023 Monocyte Distribution Width 19.74 Normal 0.00-20.00 [facility] ([place]) Comment on above: Result Comment: For ED adult patients suspected of sepsis, MDW<=20.0 does not rule out sepsis or risk of sepsis Performed By: #### C BC, CMP, ADIFF, MDW, LIP, ANEU, GFR #### [place] [address] .NEUABSon 02-12-2023 Neutrophil, Absolute 5.2 10 3/mcL Normal 2.9-6.2 [facility] ([place]) Comment on above: Performed By: #### C BC, CMP, ADIFF, MDW, LIP, ANEU, GFR #### [place] [address] CBCon 02-12-2023 Erythrocyte distribution width (RBC) [Ratio] 14.0 % Normal 11.5-14.5 [facility] ([place]) Comment on above: Order Comment: clott ed Performed By: #### C BC, CMP, ADIFF, MDW, LIP, ANEU, GFR #### [place] [address] Hematocrit (Bld) [Volume fraction] 44.7 % Normal 42.0-52.0 [facility] ([place]) Comment on above: Order Comment: clott ed Performed By: #### C BC, CMP, ADIFF, MDW, LIP, ANEU, GFR #### [place] [address] Hgb 15.5 G/dL Normal 14.0-18.0 [facility] ([place]) Comment on above: Order Comment: clott ed Performed By: #### C BC, CMP, ADIFF, MDW, LIP, ANEU, GFR #### [place] [address] MCH (RBC) [Entitic mass] 30.6 pg Normal 27.0-31.2 [facility] ([place]) Comment on above: Order Comment: clott ed Performed By: #### C BC, CMP, ADIFF, MDW, LIP, ANEU, GFR #### [place] [address] MCHC 34.6 G/dL Normal 31.8-35.4 [facility] ([place]) Comment on above: Order Comment: clott ed Performed By: #### C BC, CMP, ADIFF, MDW, LIP, ANEU, GFR #### [address] [address] MCV (RBC) [Entitic vol] 88.4 fL Normal 80.0-94.0 [facility] ([place]) Comment on above: Order Comment: clott ed Performed By: #### C BC, CMP, ADIFF, MDW, LIP, ANEU, GFR #### [address] [address] Platelet 271 10 3/mcL Normal 130-400 [facility] ([place]) Comment on above: Order Comment: clott ed Performed By: #### C BC, CMP, ADIFF, MDW, LIP, ANEU, GFR #### [address] [address] Platelet mean volume (Bld) [Entitic vol] 7.2 fL Low 7.4-10.4 [facility] ([place]) Comment on above: Order Comment: clott ed Performed By: #### C BC, CMP, ADIFF, MDW, LIP, ANEU, GFR #### [address] [address] RBC 5.06 10 6/mcL Normal 4.04-6.13 [facility] ([place]) Comment on above: Order Comment: clott ed Performed By: #### C BC, CMP, ADIFF, MDW, LIP, ANEU, GFR #### [address] [address] WBC 9.3 10 3/mcL Normal 4.6-10.8 [facility] ([place]) Comment on above: Order Comment: clott ed Performed By: #### C BC, CMP, ADIFF, MDW, LIP, ANEU, GFR #### [address] [address] CMPon 02-12-2023 Albumin Level 3.2 G/dL Low 3.5-5.0 [facility] ([place]) Comment on above: Performed By: #### C BC, CMP, ADIFF, MDW, LIP, ANEU, GFR #### [address] [address] Albumin/Globulin [Mass ratio] 0.8 {ratio} Low 1.1-2.5 [facility] ([place]) Comment on above: Performed By: #### C BC, CMP, ADIFF, MDW, LIP, ANEU, GFR #### [address] [address] ALP [Catalytic activity/Vol] 40 U/L Normal 40-135 [facility] ([place]) Comment on above: Performed By: #### C BC, CMP, ADIFF, MDW, LIP, ANEU, GFR #### [address] [address] ALT [Catalytic activity/Vol] 25 U/L Normal 16-63 [facility] ([place]) Comment on above: Performed By: #### C BC, CMP, ADIFF, MDW, LIP, ANEU, GFR #### [address] [address] AST [Catalytic activity/Vol] 32 U/L Normal 10-40 [facility] ([place]) Comment on above: Performed By: #### C BC, CMP, ADIFF, MDW, LIP, ANEU, GFR #### [address] [address] Bili Total 0.3 mg/dL Normal 0.2-1.0 [facility] ([place]) Comment on above: Result Comment: Use of this assay is not recommended for patients undergoing treatment with eltrombopag due to the potential for falsely elevated results. Performed By: #### C BC, CMP, ADIFF, MDW, LIP, ANEU, GFR #### [address] [address] BUN/Creatinine Ratio 13 ratio Normal 7-27 [facility] ([place]) Comment on above: Performed By: #### C BC, CMP, ADIFF, MDW, LIP, ANEU, GFR #### [address] [address] Calcium [Mass/Vol] 8.2 mg/dL Low 8.4-10.2 [facility] ([place]) Comment on above: Performed By: #### C BC, CMP, ADIFF, MDW, LIP, ANEU, GFR #### [place] [address] Chloride [Moles/Vol] 102 mmol/L Normal 98-107 [facility] ([place]) Comment on above: Performed By: #### C BC, CMP, ADIFF, MDW, LIP, ANEU, GFR #### [place] [address] CO2 [Moles/Vol] 26 mmol/L Normal 22-29 [facility] ([place]) Comment on above: Performed By: #### C BC, CMP, ADIFF, MDW, LIP, ANEU, GFR #### [place] [address] Creatinine [Mass/Vol] 0.71 mg/dL Normal 0.70-1.30 [facility] ([place]) Comment on above: Performed By: #### C BC, CMP, ADIFF, MDW, LIP, ANEU, GFR #### [place] [address] Electrolyte Balance 9.0 mEq/L Normal 4.0-15.0 Replaced by [facility] ([place]) Comment on above: Performed By: #### C BC, CMP, ADIFF, MDW, LIP, ANEU, GFR #### [place] [address] Globulin 3.9 G/dL Normal [facility] ([place]) Comment on above: Performed By: #### C BC, CMP, ADIFF, MDW, LIP, ANEU, GFR #### [place] [address] Glucose [Mass/Vol] 118 mg/dL High 70-105 [facility] ([place]) Comment on above: Performed By: #### C BC, CMP, ADIFF, MDW, LIP, ANEU, GFR #### [place] [address] Potassium [Moles/Vol] 4.9 mmol/L Normal 3.5-5.1 [facility] ([place]) Comment on above: Performed By: #### C BC, CMP, ADIFF, MDW, LIP, ANEU, GFR #### [place] [address] [place], [place] [address] Sodium [Moles/Vol] 137 mmol/L Normal 136-145 [facility] ([place]) Comment on above: Performed By: #### C BC, CMP, ADIFF, MDW, LIP, ANEU, GFR #### [place] [address] [place], [place] [address] Total Protein 7.1 G/dL Normal 6.4-8.2 [facility] ([place]) Comment on above: Performed By: #### C BC, CMP, ADIFF, MDW, LIP, ANEU, GFR #### [place] [address] [place], [place] [address] Urea nitrogen [Mass/Vol] 9 mg/dL Normal 7-18 [facility] ([place]) Comment on above: Performed By: #### C BC, CMP, ADIFF, MDW, LIP, ANEU, GFR #### [place] [address] [place], [place] [address] CT ABD/PELVIS W/ IV CONTRAST ONLYon 02-12-2023 CT ABD/PELVIS W/ IV CONTRAST ONLY ORIGINAL EXAMINATION: CT OF THE ABDOMEN AND PELVIS WITH CONTRAST 02/12/2023 6:52 pm TECHNIQUE: CT of the abdomen and pelvis was performed with the administration of intravenous contrast. Multiplanar reformatted images are provided for review. Automated exposure control, iterative reconstruction, and/or weight based adjustment of the mA/kV was utilized to reduce the radiation dose to as low as reasonably achievable. COMPARISON: CT abdomen pelvis 10/20/2022 HISTORY: ORDERING SYSTEM PROVIDED HISTORY: Reason for Exam: Abdominal pain left lower quadrant history of hernia repair x3 worsening pain for 2 days now having bowel movements. Hernia surgery in July of 2022 History of appendectomy FINDINGS: Multilevel degenerative changes throughout the spine. Small bilateral fat containing inguinal hernias. There is a midline abdominal surgical scar as well as soft tissue density involving the subcutaneous fat of the left lower quadrant, with surrounding stranding and inflammatory change. The soft tissue density measures about 5.1 x 2.4 cm in greatest axial dimensions on image 84 series 2. This lesion has diminished significantly in size and conspicuity since prior study. No focal fluid collection to suggest an abscess. No subcutaneous gas. No overlying skin thickening. The included lung bases are clear. The liver, gallbladder, spleen, pancreas and both adrenal glands are unremarkable. Symmetric nephrograms. No hydronephrosis or nephrolithiasis. Subcentimeter hypodense left upper pole renal lesions are too small to characterize but likely represent cysts. No focal bladder wall thickening. The small bowel is normal caliber without evidence of inflammatory change. Focal wall thickening of the distal sigmoid colon, which could represent peristalsis versus under distension at this location. The appendix is surgically absent. No free air free fluid. The aorta is mildly atherosclerotic and nonaneurysmal. No pathologically enlarged lymph nodes. IMPRESSION: Focal inflammation and soft tissue density within the subcutaneous fat of the left lower quadrant. No focal fluid collection to suggest an abscess. This finding has diminished in size and conspicuity since previous assessment and presumably relates to a postoperative area of fibrosis or seroma. I have personally reviewed the images of this examination and agree with the resident's findings and interpretation. Interpreted by: Jorgito Etienne DO Preliminary Report By: Zoila Mabry Electronically signed By Jorgito Etienne DO Dictated Date: 02/12/2023 7:28:23 PM Prelim Date: 02/12/2023 7:37:05 PM Sign Date: 02/12/2023 8:10:54 PM Ordering Provider: [facility] ([place]) LABORATORYOrdered By: SYSTEM SYSTEM on 02-12-2023 Albumin BCP dye [Mass/Vol] 3.2 G/dL Invalid Interpretation Code 3.5 - 5.0 G/dL AO ADM SS Albumin/Globulin [Mass ratio] 0.8 {ratio} Invalid Interpretation Code 1.1 - 2.5 ratio AO ADM SS ALP [Catalytic activity/Vol] 40 U/L Invalid Interpretation Code 40 - 135 U/L AO ADM SS ALT With P-5'-P [Catalytic activity/Vol] 25 U/L Invalid Interpretation Code 16 - 63 U/L AO ADM SS AST With P-5'-P [Catalytic activity/Vol] 32 U/L Invalid Interpretation Code 10 - 40 U/L AO ADM SS Bilirubin [Mass/Vol] 0.3 mg/dL Invalid Interpretation Code 0.2 - 1.0 mg/dL AO ADM SS Comment on above: Interpretive Data: U se of this assay is not recommended for patients undergoing treatment with eltrombopag due to the potential for falsely elevated results. Calcium [Mass/Vol] 8.2 mg/dL Invalid Interpretation Code 8.4 - 10.2 mg/dL AO ADM SS Chloride [Moles/Vol] 102 mmol/L Invalid Interpretation Code 98 - 107 mmol/L AO ADM SS CO2 [Moles/Vol] 26 mmol/L Invalid Interpretation Code 22 - 29 mmol/L AO ADM SS Creatinine [Mass/Vol] 0.71 mg/dL Invalid Interpretation Code 0.70 - 1.30 mg/dL AO ADM SS Electrolyte Balance 9.0 mEq/L Invalid Interpretation Code 4.0 - 15.0 mEq/L AO ADM SS GFR/1.73 sq M.predicted among blacks MDRD (S/P/Bld) [Vol rate/Area] 146 ml/min/1.73sqm Invalid Interpretation Code AO Chemistry S Comment on above: Interpretive Data: GFR Population mean for , Non- Americans Ages 20-29 = 116 mL/min/1.73 sq.m. Ages 30-39 = 107 mL/min/1.73 sq.m. Ages 40-49 = 99 mL/min/1.73 sq.m. Ages 50-59 = 93 mL/min/1.73 sq.m. Ages 60-69 = 85 mL/min/1.73 sq.m. Ages 70+ = 75 mL/min/1.73 sq.m. Chronic Kidney Disease: Less than 60 mL/min/1.73 square meters End Stage Renal Disease: Less than 15 mL/min/1.73 square meters GFR/1.73 sq M.predicted among non-blacks MDRD (S/P/Bld) [Vol rate/Area] 121 ml/min/1.73sqm Invalid Interpretation Code AO Chemistry S Comment on above: Interpretive Data: GFR Population mean for , Non- Americans Ages 20-29 = 116 mL/min/1.73 sq.m. Ages 30-39 = 107 mL/min/1.73 sq.m. Ages 40-49 = 99 mL/min/1.73 sq.m. Ages 50-59 = 93 mL/min/1.73 sq.m. Ages 60-69 = 85 mL/min/1.73 sq.m. Ages 70+ = 75 mL/min/1.73 sq.m. Chronic Kidney Disease: Less than 60 mL/min/1.73 square meters End Stage Renal Disease: Less than 15 mL/min/1.73 square meters Globulin 3.9 G/dL Invalid Interpretation Code AO ADM SS Glucose [Mass/Vol] 118 mg/dL Invalid Interpretation Code 70 - 105 mg/dL AO ADM SS Lipase [Catalytic activity/Vol] 39 U/L Invalid Interpretation Code 16 - 77 U/L AO ADM SS Potassium [Moles/Vol] 4.9 mmol/L Invalid Interpretation Code 3.5 - 5.1 mmol/L AO ADM SS Protein [Mass/Vol] 7.1 G/dL Invalid Interpretation Code 6.4 - 8.2 G/dL AO ADM SS Sodium [Moles/Vol] 137 mmol/L Invalid Interpretation Code 136 - 145 mmol/L AO ADM SS Urea nitrogen [Mass/Vol] 9 mg/dL Invalid Interpretation Code 7 - 18 mg/dL AO ADM SS Urea nitrogen/Creatinine [Mass ratio] 13 ratio Invalid Interpretation Code 7 - 27 ratio AO ADM SS Basophil, Absolute 0.1 103/mcL Invalid Interpretation Code 0.0 - 0.2 10^3/mcL AO Workflow SS Basophils/100 WBC (Bld) 1.2 % Invalid Interpretation Code 0.0 - 2.5 % AO Workflow SS Eosinophil, Absolute 0.1 103/mcL Invalid Interpretation Code 0.0 - 0.4 10^3/mcL AO Workflow SS Eosinophils/100 WBC (Bld) 1.4 % Invalid Interpretation Code 0.0 - 7.0 % AO Workflow SS Erythrocyte distribution width (RBC) [Ratio] 14.0 % Invalid Interpretation Code 11.5 - 14.5 % AO Workflow SS Hematocrit (Bld) [Volume fraction] 44.7 % Invalid Interpretation Code 42.0 - 52.0 % AO Workflow SS Hemoglobin (Bld) [Mass/Vol] 15.5 G/dL Invalid Interpretation Code 14.0 - 18.0 G/dL AO Workflow SS Lymphocyte, Absolute 3.3 103/mcL Invalid Interpretation Code 0.8 - 3.9 10^3/mcL AO Workflow SS Lymphocytes/100 WBC (Bld) 35.7 % Invalid Interpretation Code 10.0 - 50.0 % AO Workflow SS MCH (RBC) [Entitic mass] 30.6 pg Invalid Interpretation Code 27.0 - 31.2 pg AO Workflow SS MCHC 34.6 G/dL Invalid Interpretation Code 31.8 - 35.4 G/dL AO Workflow SS MCV (RBC) [Entitic vol] 88.4 fL Invalid Interpretation Code 80.0 - 94.0 fL AO Workflow SS Monocyte distribution width Auto (Bld) [Entitic vol] 19.74 1 Invalid Interpretation Code 0.00 - 20.00 AO Workflow SS Comment on above: Result Comment: For ED adult patients suspected of sepsis, MDW<=20.0 does not rule out sepsis or risk of sepsis Monocyte, Absolute 0.5 103/mcL Invalid Interpretation Code 0.2 - 1.0 10^3/mcL AO Workflow SS Monocytes/100 WBC (Bld) 5.1 % Invalid Interpretation Code 1.7 - 13.0 % AO Workflow SS Neutrophil, Absolute 5.2 103/mcL Invalid Interpretation Code 2.9 - 6.2 10^3/mcL AO Workflow SS Neutrophils/100 WBC (Bld) 56.6 % Invalid Interpretation Code 37.0 - 80.0 % AO Workflow SS Platelet mean volume (Bld) [Entitic vol] 7.2 fL Invalid Interpretation Code 7.4 - 10.4 fL AO Workflow SS Platelets (Bld) [#/Vol] 271 103/mcL Invalid Interpretation Code 130 - 400 10^3/mcL AO Workflow SS RBC (Bld) [#/Vol] 5.06 106/mcL Invalid Interpretation Code 4.04 - 6.13 10^6/mcL AO Workflow SS WBC (Bld) [#/Vol] 9.3 103/mcL Invalid Interpretation Code 4.6 - 10.8 10^3/mcL AO Workflow SS Troponin I.cardiac DL <= 0.01 ng/mL [Mass/Vol] 4.0 ng/L Invalid Interpretation Code 0.0 - 76.2 ng/L AO ADM SS LABORATORYOrdered By: Sara Cortez on 02-12-2023 Appearance (U) Clear (02/12/23 5:57 PM) Invalid Interpretation Code Clear AO Auto Urine SS Bilirubin Ql (U) Negative (02/12/23 5:57 PM) Invalid Interpretation Code Negative AO Auto Urine SS Color (U) Yellow (02/12/23 5:57 PM) Invalid Interpretation Code AO Auto Urine SS Glucose Test strip (U) [Mass/Vol] Negative Invalid Interpretation Code Negative AO Auto Urine SS Hemoglobin Auto test strip (U) [Mass/Vol] Negative (02/12/23 5:57 PM) Invalid Interpretation Code Negative AO Auto Urine SS Ketones Ql (U) Negative Invalid Interpretation Code Negative AO Auto Urine SS UA Leuk Est Negative (02/12/23 5:57 PM) Invalid Interpretation Code Negative AO Auto Urine SS UA Nitrite Negative (02/12/23 5:57 PM) Invalid Interpretation Code Negative AO Auto Urine SS UA pH 7.0 (02/12/23 5:57 PM) Invalid Interpretation Code 5.0 - 8.0 AO Auto Urine SS UA Protein Negative Invalid Interpretation Code Negative AO Auto Urine SS UA Spec Grav 1.015 (02/12/23 5:57 PM) Invalid Interpretation Code 1.015-1.025 AO Auto Urine SS UA Specimen Type Clean Catch (02/12/23 5:57 PM) Invalid Interpretation Code AO Auto Urine SS UA Urobilinogen 0.2 E.U./dL Invalid Interpretation Code 0.2-1.0 AO Auto Urine SS LIPon 02-12-2023 Lipase Level 39 U/L Normal 16-77 [facility] ([place]) Comment on above: Performed By: #### C LANI, CORNELIA, ANURAG CYR, LIP, ANEU, GFR #### [address] [address] TROPHSon 02-12-2023 Troponin I High Sensitivity 4.0 ng/L Normal 0.0-76.2 [facility] ([place]) Comment on above: Performed By: #### C LANI, CORNELIA, ANURAG CYR, LIP, ANEU, GFR #### [place] [id number] [place], [place] [address] UAon 02-12-2023 Color (U) Yellow Normal [facility] ([place]) Comment on above: Performed By: #### U A #### [address] [place], [place] [address] Glucose (U) [Mass/Vol] Negative Normal Negative [facility] ([place]) Comment on above: Performed By: #### U A #### [address] [place], [place] [address] Ketones Ql (U) Negative Normal Negative [facility] ([place]) Comment on above: Performed By: #### U A #### [address] [place], [place] [address] UA Appear Clear Normal Clear [facility] ([place]) Comment on above: Performed By: #### U A #### [address] [place], [place] [address] UA Blood Negative Normal Negative [facility] ([place]) Comment on above: Performed By: #### U A #### [address] [place], [place] [address] UA Leuk Est Negative Normal Negative [facility] ([place]) Comment on above: Performed By: #### U A #### [address] [place], [place] [address] UA Nitrite Negative Normal Negative [facility] ([place]) Comment on above: Performed By: #### U A #### [address] [place], [place] [address] UA pH 7.0 Normal 5.0 - 8.0 [facility] ([place]) Comment on above: Performed By: #### U A #### [address] [place], [place] [address] UA Protein Negative Normal Negative [facility] ([place]) Comment on above: Performed By: #### U A #### [address] [place], [place] [address] UA Spec Grav 1.015 Normal 1.015-1.025 [facility] ([place]) Comment on above: Performed By: #### U A #### [address] [place], [place] [address] UA Specimen Type Clean Catch Normal [facility] ([place]) Comment on above: Performed By: #### U A #### [address] [place], [place] [address] UA Urobilinogen 0.2 E.U./dL Normal 0.2-1.0 [facility] ([place]) Comment on above: Performed By: #### U A #### [address] [place], [place] [address] Urobilinogen (U) [Mass/Vol] Negative Normal Negative [facility] ([place]) Comment on above: Performed By: #### U A #### [address] [place], [place] [address] .Auto Diffon 10-20-2022 Basophil, Absolute 0.1 10 3/mcL Normal 0.0-0.2 [facility] ([place]) Comment on above: Performed By: #### C BC, CMP, ADIFF, MDW, LIP, ANEU, GFR #### [address] [address] Basophils/100 WBC (Bld) 1.1 % Normal 0.0-2.5 [facility] ([place]) Comment on above: Performed By: #### C BC, CMP, ADIFF, MDW, LIP, ANEU, GFR #### [address] [address] Eosinophil, Absolute 0.1 10 3/mcL Normal 0.0-0.4 [facility] ([place]) Comment on above: Performed By: #### C BC, CMP, ADIFF, MDW, LIP, ANEU, GFR #### [address] [address] Eosinophils/100 WBC (Bld) 1.7 % Normal 0.0-7.0 [facility] ([place]) Comment on above: Performed By: #### C BC, CMP, ADIFF, MDW, LIP, ANEU, GFR #### [address] [address] Lymphocyte, Absolute 2.3 10 3/mcL Normal 0.8-3.9 [facility] ([place]) Comment on above: Performed By: #### C BC, CMP, ADIFF, MDW, LIP, ANEU, GFR #### [address] [address] Lymphocytes/100 WBC (Bld) 26.4 % Normal 10.0-50.0 [facility] ([place]) Comment on above: Performed By: #### C BC, CMP, KLARISSA, MDW, LIP, ANEU, GFR #### [address] [address] Monocyte, Absolute 0.6 10 3/mcL Normal 0.2-1.0 [facility] ([place]) Comment on above: Performed By: #### C BC, CMP, KLARISSA, MDW, LIP, ANEU, GFR #### [address] [address] Monocytes/100 WBC (Bld) 6.9 % Normal 1.7-13.0 [facility] ([place]) Comment on above: Performed By: #### C BC, CMP, KLARISSA, MDW, LIP, ANEU, GFR #### [address] [address] Neutrophils/100 WBC (Bld) 63.9 % Normal 37.0-80.0 [facility] ([place]) Comment on above: Performed By: #### C BC, CMP, KLARISSA, MDW, LIP, ANEU, GFR #### [address] [address] .GFRon 10-20-2022 GFR 100 ml/min/1.73sqm Normal [facility] ([place]) Comment on above: Result Comment: GFR Population mean for , Non- Americans Ages 20-29 = 116 mL/min/1.73 sq.m. Ages 30-39 = 107 mL/min/1.73 sq.m. Ages 40-49 = 99 mL/min/1.73 sq.m. Ages 50-59 = 93 mL/min/1.73 sq.m. Ages 60-69 = 85 mL/min/1.73 sq.m. Ages 70+ = 75 mL/min/1.73 sq.m. Chronic Kidney Disease: Less than 60 mL/min/1.73 square meters End Stage Renal Disease: Less than 15 mL/min/1.73 square meters Performed By: #### C BC, CMP, ADJAN, MDW, LIP, ANEU, GFR #### [address] [address] GFR Non- 83 ml/min/1.73sqm Normal [facility] ([place]) Comment on above: Result Comment: GFR Population mean for , Non- Americans Ages 20-29 = 116 mL/min/1.73 sq.m. Ages 30-39 = 107 mL/min/1.73 sq.m. Ages 40-49 = 99 mL/min/1.73 sq.m. Ages 50-59 = 93 mL/min/1.73 sq.m. Ages 60-69 = 85 mL/min/1.73 sq.m. Ages 70+ = 75 mL/min/1.73 sq.m. Chronic Kidney Disease: Less than 60 mL/min/1.73 square meters End Stage Renal Disease: Less than 15 mL/min/1.73 square meters Performed By: #### C CORNELIA GARIBAY, MD KLARISSAW, LIP, ANEU, GFR #### [address] [address] .MDWon 10-20-2022 Monocyte Distribution Width 16.96 Normal 0.00-20.00 [facility] ([place]) Comment on above: Result Comment: For ED adult patients suspected of sepsis, MDW<=20.0 does not rule out sepsis or risk of sepsis Performed By: #### C BC, CORNELIA, KLARISSA, W, LIP, ANEU, GFR #### [address] [address] .NEUABSon 10-20-2022 Neutrophil, Absolute 5.5 10 3/mcL Normal 2.9-6.2 [facility] ([place]) Comment on above: Performed By: #### C BC, CORNELIA, KLARISSA, W, LIP, ANEU, GFR #### [address] [address] CBCon 10-20-2022 Erythrocyte distribution width (RBC) [Ratio] 12.9 % Normal 11.5-14.5 [facility] ([place]) Comment on above: Performed By: #### C BC, CMP, ADMD JANW, LIP, ANEU, GFR #### [address] [address] Hematocrit (Bld) [Volume fraction] 41.4 % Low 42.0-52.0 [facility] ([place]) Comment on above: Performed By: #### C BC, CMP, KLARISSA, MDW, LIP, ANEU, GFR #### [address] [address] Hgb 14.1 G/dL Normal 14.0-18.0 [facility] ([place]) Comment on above: Performed By: #### C BC, CMP, KLARISSA, MDW, LIP, ANEU, GFR #### [address] [address] MCH (RBC) [Entitic mass] 30.4 pg Normal 27.0-31.2 [facility] ([place]) Comment on above: Performed By: #### C BC, CMP, KLARISSA, MDW, LIP, ANEU, GFR #### [place] [address] MCHC 34.0 G/dL Normal 31.8-35.4 [facility] ([place]) Comment on above: Performed By: #### C BC, CMP, KLARISSA, MDW, LIP, ANEU, GFR #### [address] [address] MCV (RBC) [Entitic vol] 89.5 fL Normal 80.0-94.0 [facility] ([place]) Comment on above: Performed By: #### C BC, CMP, KLARISSA, MDW, LIP, ANEU, GFR #### [address] [address] Platelet 288 10 3/mcL Normal 130-400 [facility] ([place]) Comment on above: Performed By: #### C BC, CMP, KLARISSA, MDW, LIP, ANEU, GFR #### [address] [address] Platelet mean volume (Bld) [Entitic vol] 7.3 fL Low 7.4-10.4 [facility] ([place]) Comment on above: Performed By: #### C BC, CMP, ADIFF, MDW, LIP, ANEU, GFR #### [address] [address] RBC 4.62 10 6/mcL Normal 4.04-6.13 [facility] ([place]) Comment on above: Performed By: #### C BC, CMP, ADIFF, MDW, LIP, ANEU, GFR #### [address] [address] WBC 8.6 10 3/mcL Normal 4.6-10.8 [facility] ([place]) Comment on above: Performed By: #### C BC, CMP, ADIFF, MDW, LIP, ANEU, GFR #### [address] [address] CMPon 10-20-2022 Albumin Level 3.4 G/dL Low 3.5-5.0 [facility] ([place]) Comment on above: Performed By: #### C BC, CMP, ADIFF, MDW, LIP, ANEU, GFR #### [address] [address] Albumin/Globulin [Mass ratio] 1.1 {ratio} Normal 1.1-2.5 [facility] ([place]) Comment on above: Performed By: #### C BC, CMP, ADIFF, MDW, LIP, ANEU, GFR #### [address] [address] ALP [Catalytic activity/Vol] 47 U/L Normal 40-135 [facility] ([place]) Comment on above: Performed By: #### C BC, CMP, ADIFF, MDW, LIP, ANEU, GFR #### [address] [address] ALT [Catalytic activity/Vol] 21 U/L Normal 16-63 [facility] ([place]) Comment on above: Performed By: #### C BC, CMP, ADIFF, MDW, LIP, ANEU, GFR #### [address] [address] AST [Catalytic activity/Vol] 18 U/L Normal 10-40 [facility] ([place]) Comment on above: Performed By: #### C BC, CMP, KLARISSA, MDW, LIP, ANEU, GFR #### [address] [address] Bili Total 0.2 mg/dL Normal 0.2-1.0 [facility] ([place]) Comment on above: Result Comment: Use of this assay is not recommended for patients undergoing treatment with eltrombopag due to the potential for falsely elevated results. Performed By: #### C BC, CMP, KLARISSA, MDW, LIP, ANEU, GFR #### [address] [address] BUN/Creatinine Ratio 13 ratio Normal 7-27 [facility] ([place]) Comment on above: Performed By: #### C BC, CMP, KLARISSA, MDW, LIP, ANEU, GFR #### [address] [address] Calcium [Mass/Vol] 8.8 mg/dL Normal 8.4-10.2 [facility] ([place]) Comment on above: Performed By: #### C BC, CMP, KLARISSA, MDW, LIP, ANEU, GFR #### [address] [address] Chloride [Moles/Vol] 105 mmol/L Normal 98-107 [facility] ([place]) Comment on above: Performed By: #### C BC, CMP, KLARISSA, MDW, LIP, ANEU, GFR #### [address] [address] CO2 [Moles/Vol] 27 mmol/L Normal 22-29 [facility] ([place]) Comment on above: Performed By: #### C BC, CMP, KLARISSA, MDW, LIP, ANEU, GFR #### [address] [address] Creatinine [Mass/Vol] 0.99 mg/dL Normal 0.70-1.30 [facility] ([place]) Comment on above: Performed By: #### C BC, CMP, ADIFF, MDW, LIP, ANEU, GFR #### [address] [address] Electrolyte Balance 9.0 mEq/L Normal 4.0-15.0 Replaced by [facility] ([place]) Comment on above: Performed By: #### C BC, CMP, ADIFF, MDW, LIP, ANEU, GFR #### [address] [address] Globulin 3.2 G/dL Normal [facility] ([place]) Comment on above: Performed By: #### C BC, CMP, ADIFF, MDW, LIP, ANEU, GFR #### [address] [address] Glucose [Mass/Vol] 109 mg/dL High 70-105 [facility] ([place]) Comment on above: Performed By: #### C BC, CMP, ADIFF, MDW, LIP, ANEU, GFR #### [address] [address] Potassium [Moles/Vol] 3.9 mmol/L Normal 3.5-5.1 [facility] ([place]) Comment on above: Performed By: #### C BC, CMP, ADIFF, MDW, LIP, ANEU, GFR #### [address] [address] Sodium [Moles/Vol] 141 mmol/L Normal 136-145 [facility] ([place]) Comment on above: Performed By: #### C BC, CMP, ADIFF, MDW, LIP, ANEU, GFR #### [address] [address] Total Protein 6.6 G/dL Normal 6.4-8.2 [facility] ([place]) Comment on above: Performed By: #### C BC, CMP, ADIFF, MDW, LIP, ANEU, GFR #### [address] [address] Urea nitrogen [Mass/Vol] 13 mg/dL Normal 7-18 [facility] ([place]) Comment on above: Performed By: #### C BC, CMP, KLARISSA, MDW, LIP, ANEU, GFR #### [place] [address] [place], [place] [address] CT ABD/PELVIS W/ IV CONTRAST ONLYon 10-20-2022 CT ABD/PELVIS W/ IV CONTRAST ONLY ORIGINAL EXAMINATION: CT OF THE ABDOMEN AND PELVIS WITH CONTRAST 10/20/2022 6:02 pm TECHNIQUE: CT of the abdomen and pelvis was performed with the administration of intravenous contrast. Multiplanar reformatted images are provided for review. Automated exposure control, iterative reconstruction, and/or weight based adjustment of the mA/kV was utilized to reduce the radiation dose to as low as reasonably achievable. COMPARISON: CT abdomen/pelvis on 08/28/2022 HISTORY: ORDERING SYSTEM PROVIDED HISTORY: Reason for Exam: pain FINDINGS: Lower Chest: Lung bases are clear. Organs: Normal liver, spleen, pancreas, gallbladder, and adrenal glands. Symmetric kidneys without hydronephrosis. GI/Bowel: Small and large bowel are normal in caliber. Status post appendectomy. Pelvis: No bladder wall thickening. Normal size prostate. Peritoneum/Retroperit oneum: No free fluid or air. Nonaneurysmal aorta. No lymphadenopathy. Bones/Soft Tissues: No aggressive osseous lesion. A left anterior abdominal subcutaneous fluid collection measures 4.4 x 7.5 x 6.1 cm (AP by transverse by CC dimensions), decreased in size from the prior study. Surrounding infiltrative changes are again noted. Previously demonstrated central anterior abdominal fluid collection is essentially resolved and only residual infiltrative changes are present. Small fat containing bilateral inguinal hernias. IMPRESSION: Decreased size of the left anterior abdominal subcutaneous fluid collection with surrounding infiltrative changes. Essentially resolved anterior abdominal midline fluid collection with residual infiltrative changes. I have personally reviewed the images of this examination and agree with the resident's findings and interpretation. Interpreted by: Wang Francisco Preliminary Report By: Rhonda Gaspar Electronically signed By Wang Francisco Dictated Date: 10/20/2022 6:05:23 PM Prelim Date: 10/20/2022 6:20:09 PM Sign Date: 10/20/2022 6:25:29 PM Ordering Provider: LEDY Nelson [facility] ([place]) LACon 10-20-2022 Lactic Acid Lvl 1.2 mmol/L Normal 0.4-2.0 [facility] ([place]) Comment on above: Performed By: #### C BC, CORNELIA, KLARISSA, W, LIP, ANEU, GFR #### [place] [id number] [place], [place] [address] LIPon 10-20-2022 Lipase Level 43 U/L Normal 16-77 [facility] ([place]) Comment on above: Performed By: #### C BC, CMP, KLARISSA, W, LIP, ANEU, GFR #### [place] [address] [place], [place] [address] LABORATORYOrdered By: Usha Tenorio on 08-28-2022 Basophil, Absolute 0.0 103/mcL Invalid Interpretation Code 0.0 - 0.2 10^3/mcL AO Workflow SS Basophils/100 WBC (Bld) 0.3 % Invalid Interpretation Code 0.0 - 2.5 % AO Workflow SS Eosinophil, Absolute 0.2 103/mcL Invalid Interpretation Code 0.0 - 0.4 10^3/mcL AO Workflow SS Eosinophils/100 WBC (Bld) 1.6 % Invalid Interpretation Code 0.0 - 7.0 % AO Workflow SS Erythrocyte distribution width (RBC) [Ratio] 13.2 % Invalid Interpretation Code 11.5 - 14.5 % AO Workflow SS Hematocrit (Bld) [Volume fraction] 41.8 % Invalid Interpretation Code 42.0 - 52.0 % AO Workflow SS Hemoglobin (Bld) [Mass/Vol] 13.9 G/dL Invalid Interpretation Code 14.0 - 18.0 G/dL AO Workflow SS Lymphocyte, Absolute 2.2 103/mcL Invalid Interpretation Code 0.8 - 3.9 10^3/mcL AO Workflow SS Lymphocytes/100 WBC (Bld) 23.8 % Invalid Interpretation Code 10.0 - 50.0 % AO Workflow SS MCH (RBC) [Entitic mass] 30.6 pg Invalid Interpretation Code 27.0 - 31.2 pg AO Workflow SS MCHC 33.4 G/dL Invalid Interpretation Code 31.8 - 35.4 G/dL AO Workflow SS MCV (RBC) [Entitic vol] 91.7 fL Invalid Interpretation Code 80.0 - 94.0 fL AO Workflow SS Monocyte distribution width Auto (Bld) [Entitic vol] 16.25 Invalid Interpretation Code 0.00 - 20.00 AO Workflow SS Comment on above: Result Comment: For ED adult patients suspected of sepsis, MDW<=20.0 does not rule out sepsis or risk of sepsis Monocyte, Absolute 0.6 103/mcL Invalid Interpretation Code 0.2 - 1.0 10^3/mcL AO Workflow SS Monocytes/100 WBC (Bld) 6.4 % Invalid Interpretation Code 1.7 - 13.0 % AO Workflow SS Neutrophil, Absolute 6.2 103/mcL Invalid Interpretation Code 2.9 - 6.2 10^3/mcL AO Workflow SS Neutrophils/100 WBC (Bld) 67.9 % Invalid Interpretation Code 37.0 - 80.0 % AO Workflow SS Platelet mean volume (Bld) [Entitic vol] 6.4 fL Invalid Interpretation Code 7.4 - 10.4 fL AO Workflow SS Platelets (Bld) [#/Vol] 426 103/mcL Invalid Interpretation Code 130 - 400 10^3/mcL AO Workflow SS RBC (Bld) [#/Vol] 4.56 106/mcL Invalid Interpretation Code 4.04 - 6.13 10^6/mcL AO Workflow SS WBC (Bld) [#/Vol] 9.2 103/mcL Invalid Interpretation Code 4.6 - 10.8 10^3/mcL AO Workflow SS LABORATORYOrdered By: SYSTEM SYSTEM on 08-28-2022 Calcium [Mass/Vol] 8.7 mg/dL Invalid Interpretation Code 8.4 - 10.2 mg/dL AO ADM SS Chloride [Moles/Vol] 102 mmol/L Invalid Interpretation Code 98 - 107 mmol/L AO ADM SS CO2 [Moles/Vol] 30 mmol/L Invalid Interpretation Code 22 - 29 mmol/L AO ADM SS Creatinine [Mass/Vol] 0.84 mg/dL Invalid Interpretation Code 0.70 - 1.30 mg/dL AO ADM SS Electrolyte Balance 8.0 mEq/L Invalid Interpretation Code 4.0 - 15.0 mEq/L AO ADM SS GFR 121 ml/min/1.73sqm Invalid Interpretation Code AO Chemistry S GFR Non- 100 ml/min/1.73sqm Invalid Interpretation Code AO Chemistry S Glucose [Mass/Vol] 109 mg/dL Invalid Interpretation Code 70 - 105 mg/dL AO ADM SS Potassium [Moles/Vol] 3.9 mmol/L Invalid Interpretation Code 3.5 - 5.1 mmol/L AO ADM SS Sodium [Moles/Vol] 140 mmol/L Invalid Interpretation Code 136 - 145 mmol/L AO ADM SS Urea nitrogen [Mass/Vol] 9 mg/dL Invalid Interpretation Code 7 - 18 mg/dL AO ADM SS Urea nitrogen/Creatinine [Mass ratio] 11 ratio Invalid Interpretation Code 7 - 27 ratio AO ADM SS LABORATORYOrdered By: SYSTEM SYSTEM on 08-18-2022 Albumin BCP dye [Mass/Vol] 3.5 G/dL Invalid Interpretation Code 3.2 - 4.8 G/dL ADM SS Albumin/Globulin [Mass ratio] 0.9 {ratio} Invalid Interpretation Code 0.9 - 1.6 ratio AH ADM SS ALP [Catalytic activity/Vol] 43 U/L Invalid Interpretation Code 38 - 126 U/L ADM SS ALT No additional P-5'-P [Catalytic activity/Vol] 12 U/L Invalid Interpretation Code 12 - 55 U/L ADM SS AST [Catalytic activity/Vol] 22 U/L Invalid Interpretation Code 8 - 34 U/L ADM SS Basophils (Bld) [#/Vol] 0.1 103/mcL Invalid Interpretation Code 0.0 - 0.3 10^3/mcL AH Workflow SS Basophils/100 WBC (Bld) 0.9 % Invalid Interpretation Code 0.0 - 2.5 % Workflow SS Bilirubin [Mass/Vol] 0.30 mg/dL Invalid Interpretation Code 0.20 - 1.20 mg/dL ADM SS Calcium [Mass/Vol] 9.5 mg/dL Invalid Interpretation Code 8.7 - 10.4 mg/dL ADM SS Chloride [Moles/Vol] 103 mmol/L Invalid Interpretation Code 98 - 110 mEq/L ADM SS CO2 [Moles/Vol] 27 mmol/L Invalid Interpretation Code 22 - 32 mEq/L ADM SS Creatinine [Mass/Vol] 0.73 mg/dL Invalid Interpretation Code 0.60 - 1.40 mg/dL ADM SS Electrolyte Balance 5.0 mEq/L Invalid Interpretation Code 4.0 - 15.0 mEq/L ADM SS Eosinophils (Bld) [#/Vol] 0.2 103/mcL Invalid Interpretation Code 0.0 - 0.7 10^3/mcL Workflow SS Eosinophils/100 WBC (Bld) 1.7 % Invalid Interpretation Code 0.0 - 6.0 % Workflow SS Erythrocyte distribution width (RBC) [Ratio] 13.2 % Invalid Interpretation Code 11.5 - 15.5 % AH Workflow SS GFR/1.73 sq M.predicted among blacks MDRD (S/P/Bld) [Vol rate/Area] ml/min/1.73sqm Invalid Interpretation Code AH ADM SS GFR/1.73 sq M.predicted among non-blacks MDRD (S/P/Bld) [Vol rate/Area] ml/min/1.73sqm Invalid Interpretation Code AH ADM SS Globulin 4.0 G/dL Invalid Interpretation Code 1.5 - 3.8 G/dL AH ADM SS Glucose [Mass/Vol] 87 mg/dL Invalid Interpretation Code 70 - 110 mg/dL ADM SS Hematocrit (Bld) [Volume fraction] 42.5 % Invalid Interpretation Code 40.0 - 52.0 % AH Workflow SS Hemoglobin (Bld) [Mass/Vol] 14.4 G/dL Invalid Interpretation Code 13.0 - 17.5 G/dL AH Workflow SS Lipase [Catalytic activity/Vol] 31 U/L Invalid Interpretation Code 12 - 53 U/L ADM SS Lymphocytes (Bld) [#/Vol] 2.4 103/mcL Invalid Interpretation Code 0.9 - 4.3 10^3/mcL AH Workflow SS Lymphocytes/100 WBC (Bld) 25.6 % Invalid Interpretation Code 20.0 - 40.0 % AH Workflow SS MCH (RBC) [Entitic mass] 31.3 pg Invalid Interpretation Code 27.0 - 33.0 pg AH Workflow SS MCHC 33.9 G/dL Invalid Interpretation Code 32.0 - 36.0 G/dL AH Workflow SS MCV (RBC) [Entitic vol] 92.2 fL Invalid Interpretation Code 81.0 - 100.0 fL AH Workflow SS Monocyte distribution width Auto (Bld) [Entitic vol] 17.77 Invalid Interpretation Code 0.00 - 20.00 AH Workflow SS Comment on above: Result Comment: For ED adult patients suspected of sepsis, MDW<=20.0 does not rule out sepsis or risk of sepsis Monocytes (Bld) [#/Vol] 0.5 103/mcL Invalid Interpretation Code 0.1 - 1.4 10^3/mcL AH Workflow SS Monocytes/100 WBC (Bld) 5.6 % Invalid Interpretation Code 2.0 - 13.0 % AH Workflow SS Neutrophils (Bld) [#/Vol] 6.2 103/mcL Invalid Interpretation Code 2.3 - 8.1 10^3/mcL AH Workflow SS Neutrophils/100 WBC (Bld) 66.2 % Invalid Interpretation Code 50.0 - 75.0 % AH Workflow SS Platelet mean volume (Bld) [Entitic vol] 7.1 fL Invalid Interpretation Code 6.4 - 10.5 fL AH Workflow SS Platelets (Bld) [#/Vol] 389 103/mcL Invalid Interpretation Code 150 - 450 10^3/mcL AH Workflow SS Potassium [Moles/Vol] 4.5 mmol/L Invalid Interpretation Code 3.5 - 5.0 mEq/L AH ADM SS Comment on above: Result Comment: Spec imen slightly hemolyzed. Protein [Mass/Vol] 7.5 G/dL Invalid Interpretation Code 5.7 - 8.2 G/dL AH ADM SS RBC (Bld) [#/Vol] 4.62 106/mcL Invalid Interpretation Code 4.50 - 6.00 10^6/mcL AH Workflow SS Sodium [Moles/Vol] 135 mmol/L Invalid Interpretation Code 136 - 145 mEq/L AH ADM SS Urea nitrogen [Mass/Vol] 10.0 mg/dL Invalid Interpretation Code 8.0 - 22.0 mg/dL AH ADM SS Urea nitrogen/Creatinine [Mass ratio] 13.7 ratio Invalid Interpretation Code 10.0 - 22.0 ratio AH ADM SS WBC (Bld) [#/Vol] 9.4 103/mcL Invalid Interpretation Code 4.5 - 10.8 10^3/mcL AH Workflow SS LABORATORYOrdered By: Severino العراقي on 08-18-2022 Appearance (U) Clear (08/18/22 12:18 PM) Invalid Interpretation Code Clear AH Auto Urine SS Bilirubin Ql (U) Negative (08/18/22 12:18 PM) Invalid Interpretation Code Neg-Trace AH Auto Urine SS Color (U) Yellow (08/18/22 12:18 PM) Invalid Interpretation Code AH Auto Urine SS Glucose Test strip (U) [Mass/Vol] Negative Invalid Interpretation Code Negativemg/d L AH Auto Urine SS Hemoglobin Auto test strip (U) [Mass/Vol] Negative (08/18/22 12:18 PM) Invalid Interpretation Code Neg-Trace AH Auto Urine SS Ketones Ql (U) Negative Invalid Interpretation Code Neg-Tracemg/ dL AH Auto Urine SS UA Leuk Est Negative (08/18/22 12:18 PM) Invalid Interpretation Code Negative Auto Urine SS UA Nitrite Negative (08/18/22 12:18 PM) Invalid Interpretation Code Negative AH Auto Urine SS UA pH 7.5 (08/18/22 12:18 PM) Invalid Interpretation Code 5.0 - 8.0 AH Auto Urine SS UA Protein Negative Invalid Interpretation Code Negativemg/d L Auto Urine SS UA Spec Grav 1.020 (08/18/22 12:18 PM) Invalid Interpretation Code 1.006-1.029 Auto Urine SS UA Specimen Type Clean Catch (08/18/22 12:18 PM) Invalid Interpretation Code Auto Urine SS UA Urobilinogen 0.2 E.U./dL Invalid Interpretation Code 0.2-1.0E.U./ dL Auto Urine SS LABORATORYOrdered By: SYSTEM SYSTEM on 07-22-2022 Albumin BCP dye [Mass/Vol] 3.1 G/dL Invalid Interpretation Code 3.5 - 5.0 G/dL AO ADM SS Albumin/Globulin [Mass ratio] 0.9 {ratio} Invalid Interpretation Code 1.1 - 2.5 ratio AO ADM SS ALP [Catalytic activity/Vol] 40 U/L Invalid Interpretation Code 40 - 135 U/L AO ADM SS ALT With P-5'-P [Catalytic activity/Vol] 28 U/L Invalid Interpretation Code 16 - 63 U/L AO ADM SS AST With P-5'-P [Catalytic activity/Vol] 21 U/L Invalid Interpretation Code 10 - 40 U/L AO ADM SS Bilirubin [Mass/Vol] 0.2 mg/dL Invalid Interpretation Code 0.2 - 1.0 mg/dL AO ADM SS Calcium [Mass/Vol] 8.6 mg/dL Invalid Interpretation Code 8.4 - 10.2 mg/dL AO ADM SS Chloride [Moles/Vol] 98 mmol/L Invalid Interpretation Code 98 - 107 mmol/L AO ADM SS CO2 [Moles/Vol] 31 mmol/L Invalid Interpretation Code 22 - 29 mmol/L AO ADM SS Creatinine [Mass/Vol] 0.81 mg/dL Invalid Interpretation Code 0.70 - 1.30 mg/dL AO ADM SS Electrolyte Balance 6.0 mEq/L Invalid Interpretation Code 4.0 - 15.0 mEq/L AO ADM SS GFR 126 ml/min/1.73sqm Invalid Interpretation Code AO Chemistry S GFR Non- 104 ml/min/1.73sqm Invalid Interpretation Code AO Chemistry S Globulin 3.6 G/dL Invalid Interpretation Code AO ADM SS Glucose [Mass/Vol] 131 mg/dL Invalid Interpretation Code 70 - 105 mg/dL AO ADM SS Lipase [Catalytic activity/Vol] 18 U/L Invalid Interpretation Code 16 - 77 U/L AO ADM SS Potassium [Moles/Vol] 4.3 mmol/L Invalid Interpretation Code 3.5 - 5.1 mmol/L AO ADM SS Protein [Mass/Vol] 6.7 G/dL Invalid Interpretation Code 6.4 - 8.2 G/dL AO ADM SS Sodium [Moles/Vol] 135 mmol/L Invalid Interpretation Code 136 - 145 mmol/L AO ADM SS Urea nitrogen [Mass/Vol] 16 mg/dL Invalid Interpretation Code 7 - 18 mg/dL AO ADM SS Urea nitrogen/Creatinine [Mass ratio] 20 ratio Invalid Interpretation Code 7 - 27 ratio AO ADM SS LABORATORYOrdered By: Hazel Gonzalez on 07-22-2022 Appearance (U) Slightly Cloudy *ABN* (07/22/22 10:41 AM) Invalid Interpretation Code Clear AO Auto Urine SS Basophil, Absolute 0.1 103/mcL Invalid Interpretation Code 0.0 - 0.2 10^3/mcL AO Workflow SS Basophils/100 WBC (Bld) 0.6 % Invalid Interpretation Code 0.0 - 2.5 % AO Workflow SS Bilirubin Ql (U) Negative (07/22/22 10:41 AM) Invalid Interpretation Code Negative AO Auto Urine SS Color (U) Yellow (07/22/22 10:41 AM) Invalid Interpretation Code AO Auto Urine SS Crystals.amorphous LM.HPF (Urine sed) [#/Area] 2 /[HPF] Invalid Interpretation Code AO Auto Urine SS Eosinophil, Absolute 0.1 103/mcL Invalid Interpretation Code 0.0 - 0.4 10^3/mcL AO Workflow SS Eosinophils/100 WBC (Bld) 0.9 % Invalid Interpretation Code 0.0 - 7.0 % AO Workflow SS Erythrocyte distribution width (RBC) [Ratio] 14.1 % Invalid Interpretation Code 11.5 - 14.5 % AO Workflow SS Glucose Test strip (U) [Mass/Vol] Negative Invalid Interpretation Code Negativemg/d L AO Auto Urine SS Hematocrit (Bld) [Volume fraction] 41.1 % Invalid Interpretation Code 42.0 - 52.0 % AO Workflow SS Hemoglobin (Bld) [Mass/Vol] 13.9 G/dL Invalid Interpretation Code 14.0 - 18.0 G/dL AO Workflow SS Hemoglobin Auto test strip (U) [Mass/Vol] Negative (07/22/22 10:41 AM) Invalid Interpretation Code Negative AO Auto Urine SS Ketones Ql (U) Negative Invalid Interpretation Code Negativemg/d L AO Auto Urine SS Lymphocyte, Absolute 1.5 103/mcL Invalid Interpretation Code 0.8 - 3.9 10^3/mcL AO Workflow SS Lymphocytes/100 WBC (Bld) 11.9 % Invalid Interpretation Code 10.0 - 50.0 % AO Workflow SS MCH (RBC) [Entitic mass] 30.5 pg Invalid Interpretation Code 27.0 - 31.2 pg AO Workflow SS MCHC 33.8 G/dL Invalid Interpretation Code 31.8 - 35.4 G/dL AO Workflow SS MCV (RBC) [Entitic vol] 90.0 fL Invalid Interpretation Code 80.0 - 94.0 fL AO Workflow SS Monocyte distribution width Auto (Bld) [Entitic vol] 18.46 Invalid Interpretation Code 0.00 - 20.00 AO Workflow SS Comment on above: Result Comment: For ED adult patients suspected of sepsis, MDW<=20.0 does not rule out sepsis or risk of sepsis Monocyte, Absolute 0.7 103/mcL Invalid Interpretation Code 0.2 - 1.0 10^3/mcL AO Workflow SS Monocytes/100 WBC (Bld) 5.7 % Invalid Interpretation Code 1.7 - 13.0 % AO Workflow SS Neutrophil, Absolute 10.1 103/mcL Invalid Interpretation Code 2.9 - 6.2 10^3/mcL AO Workflow SS Neutrophils/100 WBC (Bld) 80.9 % Invalid Interpretation Code 37.0 - 80.0 % AO Workflow SS Platelet mean volume (Bld) [Entitic vol] 6.9 fL Invalid Interpretation Code 7.4 - 10.4 fL AO Workflow SS Platelets (Bld) [#/Vol] 332 103/mcL Invalid Interpretation Code 130 - 400 10^3/mcL AO Workflow SS RBC (Bld) [#/Vol] 4.57 106/mcL Invalid Interpretation Code 4.04 - 6.13 10^6/mcL AO Workflow SS UA Leuk Est Negative (07/22/22 10:41 AM) Invalid Interpretation Code Negative AO Auto Urine SS UA Mucous 2+ /HPF Invalid Interpretation Code AO Auto Urine SS UA Nitrite Negative (07/22/22 10:41 AM) Invalid Interpretation Code Negative AO Auto Urine SS UA pH 7.0 (07/22/22 10:41 AM) Invalid Interpretation Code 5.0 - 8.0 AO Auto Urine SS UA Protein 30 mg/dL Invalid Interpretation Code Negativemg/d L AO Auto Urine SS UA RBC 0-5 /HPF Invalid Interpretation Code None Seen/HPF AO Auto Urine SS UA Spec Grav 1.020 (07/22/22 10:41 AM) Invalid Interpretation Code 1.015-1.025 AO Auto Urine SS UA Specimen Type Clean Catch (07/22/22 10:41 AM) Invalid Interpretation Code AO Auto Urine SS UA Squam Epithelial 0-5 /HPF Invalid Interpretation Code None Seen/HPF AO Auto Urine SS UA Urobilinogen 0.2 E.U./dL Invalid Interpretation Code 0.2-1.0E.U./ dL AO Auto Urine SS WBC (Bld) [#/Vol] 12.4 103/mcL Invalid Interpretation Code 4.6 - 10.8 10^3/mcL AO Workflow SS WBC LM.HPF (Urine sed) [#/Area] 0-5 /HPF Invalid Interpretation Code None Seen/HPF AO Auto Urine SS LABORATORYOrdered By: Hazel Gonzalez on 07-15-2022 Basophil, Absolute 0.1 103/mcL Invalid Interpretation Code 0.0 - 0.2 10^3/mcL AO Workflow SS Basophils/100 WBC (Bld) 0.6 % Invalid Interpretation Code 0.0 - 2.5 % AO Workflow SS Eosinophil, Absolute 0.2 103/mcL Invalid Interpretation Code 0.0 - 0.4 10^3/mcL AO Workflow SS Eosinophils/100 WBC (Bld) 2.2 % Invalid Interpretation Code 0.0 - 7.0 % AO Workflow SS Erythrocyte distribution width (RBC) [Ratio] 14.3 % Invalid Interpretation Code 11.5 - 14.5 % AO Workflow SS Hematocrit (Bld) [Volume fraction] 44.0 % Invalid Interpretation Code 42.0 - 52.0 % AO Workflow SS Hemoglobin (Bld) [Mass/Vol] 15.2 G/dL Invalid Interpretation Code 14.0 - 18.0 G/dL AO Workflow SS Lymphocyte, Absolute 3.3 103/mcL Invalid Interpretation Code 0.8 - 3.9 10^3/mcL AO Workflow SS Lymphocytes/100 WBC (Bld) 33.2 % Invalid Interpretation Code 10.0 - 50.0 % AO Workflow SS MCH (RBC) [Entitic mass] 31.2 pg Invalid Interpretation Code 27.0 - 31.2 pg AO Workflow SS MCHC 34.6 G/dL Invalid Interpretation Code 31.8 - 35.4 G/dL AO Workflow SS MCV (RBC) [Entitic vol] 90.2 fL Invalid Interpretation Code 80.0 - 94.0 fL AO Workflow SS Monocyte distribution width Auto (Bld) [Entitic vol] 19.79 Invalid Interpretation Code 0.00 - 20.00 AO Workflow SS Comment on above: Result Comment: For ED adult patients suspected of sepsis, MDW<=20.0 does not rule out sepsis or risk of sepsis Monocyte, Absolute 0.6 103/mcL Invalid Interpretation Code 0.2 - 1.0 10^3/mcL AO Workflow SS Monocytes/100 WBC (Bld) 6.0 % Invalid Interpretation Code 1.7 - 13.0 % AO Workflow SS Neutrophil, Absolute 5.8 103/mcL Invalid Interpretation Code 2.9 - 6.2 10^3/mcL AO Workflow SS Neutrophils/100 WBC (Bld) 58.0 % Invalid Interpretation Code 37.0 - 80.0 % AO Workflow SS Platelet mean volume (Bld) [Entitic vol] 7.3 fL Invalid Interpretation Code 7.4 - 10.4 fL AO Workflow SS Platelets (Bld) [#/Vol] 305 103/mcL Invalid Interpretation Code 130 - 400 10^3/mcL AO Workflow SS RBC (Bld) [#/Vol] 4.89 106/mcL Invalid Interpretation Code 4.04 - 6.13 10^6/mcL AO Workflow SS WBC (Bld) [#/Vol] 10.0 103/mcL Invalid Interpretation Code 4.6 - 10.8 10^3/mcL AO Workflow SS LABORATORYOrdered By: SYSTEM SYSTEM on 07-15-2022 Calcium [Mass/Vol] 8.4 mg/dL Invalid Interpretation Code 8.4 - 10.2 mg/dL AO ADM SS Chloride [Moles/Vol] 101 mmol/L Invalid Interpretation Code 98 - 107 mmol/L AO ADM SS CO2 [Moles/Vol] 30 mmol/L Invalid Interpretation Code 22 - 29 mmol/L AO ADM SS Creatinine [Mass/Vol] 0.88 mg/dL Invalid Interpretation Code 0.70 - 1.30 mg/dL AO ADM SS Electrolyte Balance 8.0 mEq/L Invalid Interpretation Code 4.0 - 15.0 mEq/L AO ADM SS GFR 115 ml/min/1.73sqm Invalid Interpretation Code AO Chemistry S GFR Non- 95 ml/min/1.73sqm Invalid Interpretation Code AO Chemistry S Glucose [Mass/Vol] 123 mg/dL Invalid Interpretation Code 70 - 105 mg/dL AO ADM SS Potassium [Moles/Vol] 3.8 mmol/L Invalid Interpretation Code 3.5 - 5.1 mmol/L AO ADM SS Sodium [Moles/Vol] 139 mmol/L Invalid Interpretation Code 136 - 145 mmol/L AO ADM SS Urea nitrogen [Mass/Vol] 15 mg/dL Invalid Interpretation Code 7 - 18 mg/dL AO ADM SS Urea nitrogen/Creatinine [Mass ratio] 17 ratio Invalid Interpretation Code 7 - 27 ratio AO ADM SS LABORATORYOrdered By: Sara Echeverria on 06-27-2022 Appearance (U) Clear (06/27/22 11:48 PM) Invalid Interpretation Code Clear AO Auto Urine SS Bilirubin Ql (U) Negative (06/27/22 11:48 PM) Invalid Interpretation Code Negative AO Auto Urine SS Color (U) Yellow (06/27/22 11:48 PM) Invalid Interpretation Code AO Auto Urine SS Glucose Test strip (U) [Mass/Vol] Negative Invalid Interpretation Code Negativemg/d L AO Auto Urine SS Hemoglobin Auto test strip (U) [Mass/Vol] Negative (06/27/22 11:48 PM) Invalid Interpretation Code Negative AO Auto Urine SS Ketones Ql (U) Negative Invalid Interpretation Code Negativemg/d L AO Auto Urine SS UA Leuk Est Negative (06/27/22 11:48 PM) Invalid Interpretation Code Negative AO Auto Urine SS UA Nitrite Negative (06/27/22 11:48 PM) Invalid Interpretation Code Negative AO Auto Urine SS UA pH 6.5 (06/27/22 11:48 PM) Invalid Interpretation Code 5.0 - 8.0 AO Auto Urine SS UA Protein Negative Invalid Interpretation Code Negativemg/d L AO Auto Urine SS UA Spec Grav 1.010 *ABN* (06/27/22 11:48 PM) Invalid Interpretation Code 1.015-1.025 AO Auto Urine SS UA Specimen Type Void (06/27/22 11:48 PM) Invalid Interpretation Code AO Auto Urine SS UA Urobilinogen 0.2 E.U./dL Invalid Interpretation Code 0.2-1.0E.U./ dL AO Auto Urine SS Basophil, Absolute 0.1 103/mcL Invalid Interpretation Code 0.0 - 0.2 10^3/mcL AO Workflow SS Basophils/100 WBC (Bld) 1.1 % Invalid Interpretation Code 0.0 - 2.5 % AO Workflow SS Eosinophil, Absolute 0.3 103/mcL Invalid Interpretation Code 0.0 - 0.4 10^3/mcL AO Workflow SS Eosinophils/100 WBC (Bld) 3.3 % Invalid Interpretation Code 0.0 - 7.0 % AO Workflow SS Erythrocyte distribution width (RBC) [Ratio] 13.9 % Invalid Interpretation Code 11.5 - 14.5 % AO Workflow SS Hematocrit (Bld) [Volume fraction] 42.7 % Invalid Interpretation Code 42.0 - 52.0 % AO Workflow SS Hemoglobin (Bld) [Mass/Vol] 14.6 G/dL Invalid Interpretation Code 14.0 - 18.0 G/dL AO Workflow SS Lymphocyte, Absolute 2.6 103/mcL Invalid Interpretation Code 0.8 - 3.9 10^3/mcL AO Workflow SS Lymphocytes/100 WBC (Bld) 32.0 % Invalid Interpretation Code 10.0 - 50.0 % AO Workflow SS MCH (RBC) [Entitic mass] 30.8 pg Invalid Interpretation Code 27.0 - 31.2 pg AO Workflow SS MCHC 34.2 G/dL Invalid Interpretation Code 31.8 - 35.4 G/dL AO Workflow SS MCV (RBC) [Entitic vol] 90.1 fL Invalid Interpretation Code 80.0 - 94.0 fL AO Workflow SS Monocyte distribution width Auto (Bld) [Entitic vol] 18.05 Invalid Interpretation Code 0.00 - 20.00 AO Workflow SS Comment on above: Result Comment: For ED adult patients suspected of sepsis, MDW<=20.0 does not rule out sepsis or risk of sepsis Monocyte, Absolute 0.5 103/mcL Invalid Interpretation Code 0.2 - 1.0 10^3/mcL AO Workflow SS Monocytes/100 WBC (Bld) 6.4 % Invalid Interpretation Code 1.7 - 13.0 % AO Workflow SS Neutrophil, Absolute 4.6 103/mcL Invalid Interpretation Code 2.9 - 6.2 10^3/mcL AO Workflow SS Neutrophils/100 WBC (Bld) 57.2 % Invalid Interpretation Code 37.0 - 80.0 % AO Workflow SS Platelet mean volume (Bld) [Entitic vol] 6.9 fL Invalid Interpretation Code 7.4 - 10.4 fL AO Workflow SS Platelets (Bld) [#/Vol] 265 103/mcL Invalid Interpretation Code 130 - 400 10^3/mcL AO Workflow SS RBC (Bld) [#/Vol] 4.74 106/mcL Invalid Interpretation Code 4.04 - 6.13 10^6/mcL AO Workflow SS WBC (Bld) [#/Vol] 8.1 103/mcL Invalid Interpretation Code 4.6 - 10.8 10^3/mcL AO Workflow SS LABORATORYOrdered By: SYSTEM SYSTEM on 06-27-2022 Albumin BCP dye [Mass/Vol] 3.4 G/dL Invalid Interpretation Code 3.5 - 5.0 G/dL AO ADM SS Albumin/Globulin [Mass ratio] 1.0 {ratio} Invalid Interpretation Code 1.1 - 2.5 ratio AO ADM SS ALP [Catalytic activity/Vol] 43 U/L Invalid Interpretation Code 40 - 135 U/L AO ADM SS ALT With P-5'-P [Catalytic activity/Vol] 22 U/L Invalid Interpretation Code 16 - 63 U/L AO ADM SS AST With P-5'-P [Catalytic activity/Vol] 18 U/L Invalid Interpretation Code 10 - 40 U/L AO ADM SS Bilirubin [Mass/Vol] 0.2 mg/dL Invalid Interpretation Code 0.2 - 1.0 mg/dL AO ADM SS Calcium [Mass/Vol] 9.0 mg/dL Invalid Interpretation Code 8.4 - 10.2 mg/dL AO ADM SS Chloride [Moles/Vol] 100 mmol/L Invalid Interpretation Code 98 - 107 mmol/L AO ADM SS CO2 [Moles/Vol] 28 mmol/L Invalid Interpretation Code 22 - 29 mmol/L AO ADM SS Creatinine [Mass/Vol] 0.82 mg/dL Invalid Interpretation Code 0.70 - 1.30 mg/dL AO ADM SS Electrolyte Balance 8.0 mEq/L Invalid Interpretation Code 4.0 - 15.0 mEq/L AO ADM SS GFR 124 ml/min/1.73sqm Invalid Interpretation Code AO Chemistry S GFR Non- 103 ml/min/1.73sqm Invalid Interpretation Code AO Chemistry S Globulin 3.4 G/dL Invalid Interpretation Code AO ADM SS Glucose [Mass/Vol] 113 mg/dL Invalid Interpretation Code 70 - 105 mg/dL AO ADM SS Lipase [Catalytic activity/Vol] 43 U/L Invalid Interpretation Code 16 - 77 U/L AO ADM SS Potassium [Moles/Vol] 4.3 mmol/L Invalid Interpretation Code 3.5 - 5.1 mmol/L AO ADM SS Protein [Mass/Vol] 6.8 G/dL Invalid Interpretation Code 6.4 - 8.2 G/dL AO ADM SS Sodium [Moles/Vol] 136 mmol/L Invalid Interpretation Code 136 - 145 mmol/L AO ADM SS Urea nitrogen [Mass/Vol] 17 mg/dL Invalid Interpretation Code 7 - 18 mg/dL AO ADM SS Urea nitrogen/Creatinine [Mass ratio] 21 ratio Invalid Interpretation Code 7 - 27 ratio AO ADM SS Basic metabolic 1998 panelon 06-19-2022 Anion gap [Moles/Vol] 6 mmol/L 3 - 13 mmol/L [facility] Calcium [Mass/Vol] 9.0 mg/dL 8.4 - 10. 4 mg/dL [facility] Chloride [Moles/Vol] 105 mmol/L 98 - 10 7 mmol/L [facility] CO2 [Moles/Vol] 26 mmol/L 22 - 30 mmol/L [facility] Creatinine [Mass/Vol] 0.71 mg/dL 0.66 - 1.25 mg/dL [facility] GFR/1.73 sq M.predicted MDRD (S/P/Bld) [Vol rate/Area] - PINF [facility] Comment on above: Calculation based on the Chronic Kidney Disease Epidemiology Collaboration (CKD-EPI) equation refit without adjustment for race Glucose [Mass/Vol] 100 mg/dL 70 - 100 mg/dL [facility] Interpretation and review of laboratory results Normal [facility] Potassium [Moles/Vol] 4.3 mmol/L 3.5 - 5.1 mmol/L [facility] Sodium [Moles/Vol] 137 mmol/L 135 - 145 mmol/L [facility] Urea nitrogen [Mass/Vol] 14 mg/dL 9 - 20 mg/dL [facility] CBC W Auto Differential pane l (Bld)Ordered By: Rhonda Biggs on 06-19-2022 Basophils (Bld) [#/Vol] 0.1 10*3/uL 0.0 - 0.2 10*3/uL [facility] Basophils/100 WBC (Bld) 1.3 % 0.0 - 2.0 % [facility] Eosinophils (Bld) [#/Vol] 0.2 10*3/uL 0.0 - 0.5 10*3/uL [facility] Eosinophils/100 WBC (Bld) 2.4 % 1.0 - 6.0 % [facility] Erythrocyte distribution width (RBC) [Ratio] 14.3 % 11.5 - 14.5 % [facility] Hematocrit (Bld) [Volume fraction] 42.3 % 40.0 - 52.0 % [facility] Hemoglobin (Bld) [Mass/Vol] 14.5 g/dL 13.0 - 18.0 g/dL [facility] Interpretation and review of laboratory results Abnormal [facility] Lymphocytes (Bld) [#/Vol] 2.9 10*3/uL 1.0 - 4.3 10*3/uL [facility] Lymphocytes/100 WBC (Bld) 31.3 % 20.0 - 40.0 % [facility] MCH (RBC) [Entitic mass] 30.7 pg 26.0 - 34.0 pg [facility] MCHC (RBC) [Mass/Vol] 34.2 % 32.0 - 36.0 % [facility] MCV (RBC) [Entitic vol] 90.0 fL 80.0 - 98.0 fL [facility] Monocytes (Bld) [#/Vol] 0.6 10*3/uL 0.0 - 0.8 10*3/uL [facility] Monocytes/100 WBC (Bld) 6.3 % 2.0 - 10.0 % [facility] Neutrophils (Bld) [#/Vol] 5.4 10*3/uL 1.8 - 7.0 10*3/uL [facility] Neutrophils/100 WBC (Bld) 58.7 % 40.0 - 80.0 % [facility] Nucleated RBC/100 WBC (Bld) [Ratio] 0.0 % [facility] Platelet mean volume (Bld) [Entitic vol] 7.0 fL Low 7.4 - 12.4 fL [facility] Platelets (Bld) [#/Vol] 296 10*3/uL 140 - 440 10*3/uL [facility] RBC (Bld) [#/Vol] 4.70 10*6/uL 4.40 - 5.9 0 10*6/uL [facility] WBC (Bld) [#/Vol] 9.2 10*3/uL 3.6 - 10.7 10*3/uL [facility] - Drug toxicology on 06-19-2022 carBAMazepine [Mass/Vol] 14.5 ug/mL High 4.0 - 12.0 ug/mL [facility] No Panel Informationon 06-19 Interpretation and review of laboratory results Abnormal [facility] EMERGENCY REPORTon 2 EMERGENCY REPORT [facility] EMERGENCY ROOM REPORT NAME ACCOUNT SEX AGE ADMIT DISCHARGE PT MED. RECORD# NUMBER DATE DATE TYPE GA [id number] Saranya 42 05/22/22 05/23/22 3 PATRICK Guerrero [id number] ROOM: [facility] DATE OF : 1980 DICTATING PHYSICIAN: Patrick Vigil HISTORY OF PRESENT ILLNESS: This is a 42-year-old male who came to the emergency room with a history of a seizures. According to the family, he had come home from work today, was sitting down in the chair, and he started to have the shakes, which he has had in the past which were typical of what he had for seizures in the past. The seizures came from a head injury that he had several years ago that had some bleeding. He has a neurologist, but has not seen him for a long time. The seizure medications were discontinued. He was on Tegretol 1200 mg per day. He states that worked well. He indicated that his seizures are called complex seizures. They indicate that this was typical for his seizure, and the patient states he did not really pass out. He could talk all the way through the seizure, and the family said that while he was shaking real bad he could still tell the family what to do about these seizures. It lasted about 5 to 10 minutes, and then they came here to the emergency room. He states he is not a diabetic. No history of cardiac disease in the family. No history of lung disorders. No history of blood clots. He has not had any chest pain or abdominal pain. He was seen today in room #6 at arrival. He was not incontinent. SOCIAL HISTORY: He is employed. He is a nonsmoker. He is here with his girlfriend and his mother. He works at an [employer] business. He has done that for sometime. PHYSICAL EXAMINATION: GENERAL: On exam, he is pleasant, alert, and oriented. He states that this is typical for him. HEENT: His head is normocephalic. Pupils are equal, round, and reactive. NECK: Neck is easily supple. LUNGS: Lungs are clear. There is no expiratory wheeze, rales, or paradoxical chest motions. ABDOMEN: He has a large abdomen, but it is nontender. NEUROLOGIC: Face is symmetric. Speech is precise. He is alert and oriented for date, time, and location. He states he does not remember all the shaking. EXTREMITIES: Hand grasps are normal. Toe flexion and extension strength are normal. His extremities are non-swollen and nontender. No bite jesus in his mouth. No bleeding around his lips. VITAL SIGNS: 98.2 temperature, 122/79 blood pressure, 98% saturation, 98 pulse, and 18 respirations at arrival. DIAGNOSTIC DATA: EKG done at arrival was a normal sinus mechanism without any evidence of acute CO or ischemia. Rate was 111. Emergency room physician reading. Results of his laboratories: 14,000 white count, H&H normal, and platelets were satisfactory. Chemistries are all good with a creatinine of 0.91. CRP is slightly elevated at 2.8, not considered significant. Normal troponin and gap. Page 1 of 2 PATRICK KOROMA Emergency Room Report A PATRICK KOROMA : 1980 EMERGENCY DEPARTMENT COURSE AND TREATMENT: At arrival, he had an IV placed. We gave him Ativan IV and we gave him a dose of Tegretol 200 mg p.o. We told him when he restarts his Tegretol he is going to have to go up slowly. We did that. He maintained normal activity. He was pleasant and so forth as previously noted. DIAGNOSIS: Recurrent complex seizures. PLAN/DISPOSITION: We discharged him to home eventually with laboratory data that was satisfactory. His family states he was doing better. He was very appropriate here in the emergency room. He was discharged ambulatory from the emergency room to followup with his neurologist in the office. He could not give me the name of his neurologist, but his family states they had it at home and would call the neurologist in the morning to make a recheck appointment. A work excuse was provided. Dictated By: Patrick VgiilDO 05/23/22 07:02 JOB #: [id number] Transcribed By: am 05/23/22 13:53 Electronically signed by: E-SIGN PATRICK VIGIL 06/12/22 05:26 Page 2 of 2 PATRICK KOROMA Emergency Room Report A Normal [facility] CT ABDOMEN PELVIS WITH IV CO NTRAST ONLYon 06-10-2022 CT ABDOMEN PELVIS WITH IV CONTRAST ONLY EXAMINATION: CT ABDOMEN PELVIS WITH IV CONTRAST ONLY HISTORY: ORDERING SYSTEM PROVIDED HISTORY: periumbilical pain, TECHNOLOGIST PROVIDED HISTORY: Illness/Other Reason for exam: abd pain, previous hernia surgery Encounter Type: Initial Additional signs and symptoms: ORDERING SYSTEM PROVIDED DIAGNOSIS CODES: COMPARISON: None. TECHNIQUE: CT examination of the abdomen and pelvis following the administration of intravenous contrast. Coronal and sagittal reformations were performed. Dose reduction techniques were achieved by using automated exposure control and/or adjustment of mA and/or kV according to patient size and/or use of iterative reconstruction technique. CONTRAST: Iopamidol 370 mg Iodine/mL (76%) intravenous solution - 75 mL. FINDINGS: The visualized portions of the lung bases are clear. ABDOMEN: The liver and spleen enhance homogeneously without focal lesion. There is no intra or extrahepatic biliary duct dilatation. The gallbladder is unremarkable. There are a couple subcentimeter hypodensities in the left kidney which are too small to characterize by CT size criteria. Otherwise, the pancreas, adrenal glands, kidneys, and bowel loops are unremarkable. The patient is status post appendectomy. There is no mesenteric or retroperitoneal lymphadenopathy. There is diastasis of the rectus abdominus musculature with a small fat containing umbilical hernia. Within the subcutaneous tissues at the anterior aspect of the umbilical hernia, there is a thick rimmed cystic lesion measuring up to 5.4 x 4.4 cm without internal air (series 2, image 95). PELVIS: The bladder demonstrates wall thickening. The rectum is unremarkable. There is no iliac or inguinal lymphadenopathy. There are small bilateral fat containing inguinal hernias. There is mild atherosclerotic disease. Bone windows show no aggressive osseous lesions. IMPRESSION: 1. Diastasis of the rectus abdominus musculature with a small fat containing umbilical hernia. Within the subcutaneous tissues at the anterior aspect of the hernia, there is a complex, thick rimmed cystic lesion measuring up to 5.4 x 4.4 cm without internal air. This is of uncertain etiology with differential considerations including a postoperative seroma or hematoma given the history of a prior hernia surgery. An abscess is felt unlikely with no significant surrounding inflammatory changes or air. Other etiologies are not excluded. Follow-up imaging to document resolution is recommended. 2. Status post appendectomy. 3. Urinary bladder wall thickening. Please correlate with urinalysis for infection. [facility] Workstation ID: [id number] Dictated by: ROSAURA ROBLES on FriJun 10, 2022 2:32:31 AM EST Transcribed by: CHARLIE JIMENEZ on FriJun 10, 2022 2:35:27 AM EST Finalized by: ROSAURA ROBLES on FriJun 10, 2022 2:46:[address] [facility] Comment on above: Order Comment: Injur y/Trauma or Illness?:Illness/Other How long have you had these symptoms (acute/chronic)?:Acute Reason for exam?:abd pain, previous hernia surgery Type of Exam?:Initial Additional signs and symptoms?: CT ANGIOGRAM HEAD NECKon CT ANGIOGRAM HEAD NECK EXAMINATION: CT ANGIOGRAM HEAD NECK HISTORY: Diffuse headache and history of brain aneurysm 2003 Injury/Trauma or Illness?:Illness/Othe r How long have you had these symptoms (acute/chronic)?:Acut e Reason for exam?:h/a x 5 days. Type of Exam?:Unknown Additional signs and symptoms?:unknown Injury/Trauma or Illness?:Illness/Othe r How long have you had these symptoms (acute/chronic)?:Acut eDiffuse headache and history of brain aneurysm 2003 COMPARISON: None available at time of dictation. TECHNIQUE: CT angiogram of the head and neck was performed. Coronal, sagittal and 3-D reformats were created and reviewed. Carotid stenosis measurements were made according to the NASCET criteria. Dose reduction techniques were achieved by using automated exposure control and/or adjustment of mA and/or kV according to patient size and/or use of iterative reconstruction technique There is suboptimal arterial filling. Venous contamination is seen. CONTRAST: Isovue-370. FINDINGS: NECK: AORTIC ARCH: Normal origin of the innominate, left common carotid and left subclavian arteries. ANTERIOR CIRCULATION:Common carotid arteries are patent. Carotid bifurcations are patent. Cervical ICA are patent up to the level of the skull base. POSTERIOR CIRCULATION: There are streak artifacts which obscure detail in the V1 and proximal V2 segments. The vessels appear patent bilaterally. The distal V2 and V3 segments are patent. There is a left dominant system. DEVELOPMENTAL ANOMALIES: None. OTHER: No thyroid nodule or adenopathy. HEAD BRAIN: No focal lesions. No mass effect. No midline shift or herniation. No intraparenchymal or extra-axial hemorrhage. Normal pantoja/white differentiation. No hyperdense intraluminal thrombus is seen. No evidence of postoperative changes which would indicate the presence of prior aneurysm surgery or coiling. Ventricles and extraventricular spaces are normal in size for patient's age. There is haas sinus thickening/opacificat ion with lace-like secretions and fluid levels in the sphenoid sinuses. In the appropriate clinical setting, this finding would be consistent with acute on chronic sinusitis. There is soft tissue densities in the nasal cavity consistent with nasal polyps. Nasal septum is deviated to the left with spur formation. A nasal septal piercing is noted. Mastoids and middle ears are clear. No displaced or depressed calvarial fracture is noted. ANTERIOR CIRCULATION: The intra petrous, intra cavernous, and supraclinoid ICA are patent. Allowing for suboptimal arterial contrast, there is hypoplasia of the A1 segment of the left [place] with compensatory enlargement of the right A1 segment. The anterior communicating artery and A2 segments are filled symmetrically. MCA patent bilaterally. No stenosis, thrombus, aneurysm, or large vessel occlusion is seen. Distal distributions appear symmetric bilaterally. POSTERIOR CIRCULATION: V4 segments are patent. PICA origins are patent. Basilar artery and basilar tip are patent. 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 There is patent appearance of the SCA origins. There is bilateral takeoff of the ROPE MAKING MACHINE OPERATOR contributing to the vertebrobasilar system hypoplasia. No large vessel occlusion is seen. DEVELOPMENTAL ANOMALIES: Hypoplastic vertebrobasilar system associated with bilateral takeoff of the ROPE MAKING MACHINE OPERATOR. OTHER: No pathologic intracranial enhancement is seen. IMPRESSION: 1. No acute intracranial abnormality. No hemorrhage or mass effect. 2. Intracranial extracranial vessels demonstrate no stenosis, thrombus, dissection, aneurysm, or large vessel occlusion. 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 3. Acute on chronic haas sinusitis in the appropriate clinical setting. A telephone call regarding the findings in this examination was made to and acknowledged by Dr. Ivey in the emergency department at 12:50 a.m. on 06/06/2022. Workstation ID: [id number] Dictated by: ROCHELLE LUU on FriJun 06, 2022 12:50:41 AM EST Transcribed by: ROCHELLE LUU on FriJun 06, 2022 12:50:41 AM EST Finalized by: ROCHELLE LUU on FriJun 06, 2022 12:50:[address] [facility] Comment on above: Order Comment: Injur y/Trauma or Illness?:Illness/Other How long have you had these symptoms (acute/chronic)?:Acute Reason for exam?:h/a x 5 days. Type of Exam?:Unknown Additional signs and symptoms?:unknown LABORATORYOrdered By: SYSTEM SYSTEM on 05-31-2022 Albumin BCP dye [Mass/Vol] 3.0 G/dL Invalid Interpretation Code 3.5 - 5.0 G/dL AO ADM SS Albumin/Globulin [Mass ratio] 0.7 {ratio} Invalid Interpretation Code 1.1 - 2.5 ratio AO ADM SS ALP [Catalytic activity/Vol] 39 U/L Invalid Interpretation Code 40 - 135 U/L AO ADM SS ALT With P-5'-P [Catalytic activity/Vol] 39 U/L Invalid Interpretation Code 16 - 63 U/L AO ADM SS AST With P-5'-P [Catalytic activity/Vol] 46 U/L Invalid Interpretation Code 10 - 40 U/L AO ADM SS Bilirubin [Mass/Vol] 0.2 mg/dL Invalid Interpretation Code 0.2 - 1.0 mg/dL AO ADM SS Calcium [Mass/Vol] 8.7 mg/dL Invalid Interpretation Code 8.4 - 10.2 mg/dL AO ADM SS Chloride [Moles/Vol] 103 mmol/L Invalid Interpretation Code 98 - 107 mmol/L AO ADM SS CO2 [Moles/Vol] 26 mmol/L Invalid Interpretation Code 22 - 29 mmol/L AO ADM SS Creatinine [Mass/Vol] 0.66 mg/dL Invalid Interpretation Code 0.70 - 1.30 mg/dL AO ADM SS Electrolyte Balance 8.0 mEq/L Invalid Interpretation Code 4.0 - 15.0 mEq/L AO ADM SS GFR 160 ml/min/1.73sqm Invalid Interpretation Code AO Chemistry S GFR Non- 132 ml/min/1.73sqm Invalid Interpretation Code AO Chemistry S Globulin 4.1 G/dL Invalid Interpretation Code AO ADM SS Glucose [Mass/Vol] 94 mg/dL Invalid Interpretation Code 70 - 105 mg/dL AO ADM SS Potassium [Moles/Vol] 5.5 mmol/L Invalid Interpretation Code 3.5 - 5.1 mmol/L AO ADM SS Protein [Mass/Vol] 7.1 G/dL Invalid Interpretation Code 6.4 - 8.2 G/dL AO ADM SS Sodium [Moles/Vol] 137 mmol/L Invalid Interpretation Code 136 - 145 mmol/L AO ADM SS Urea nitrogen [Mass/Vol] 14 mg/dL Invalid Interpretation Code 7 - 18 mg/dL AO ADM SS Urea nitrogen/Creatinine [Mass ratio] 21 ratio Invalid Interpretation Code 7 - 27 ratio AO ADM SS LABORATORYOrdered By: Maggie Dallas on 05-31-2022 Basophil, Absolute 0.1 103/mcL Invalid Interpretation Code 0.0 - 0.2 10^3/mcL AO Workflow SS Basophils/100 WBC (Bld) 1.0 % Invalid Interpretation Code 0.0 - 2.5 % AO Workflow SS Eosinophil, Absolute 0.2 103/mcL Invalid Interpretation Code 0.0 - 0.4 10^3/mcL AO Workflow SS Eosinophils/100 WBC (Bld) 2.3 % Invalid Interpretation Code 0.0 - 7.0 % AO Workflow SS Erythrocyte distribution width (RBC) [Ratio] 13.2 % Invalid Interpretation Code 11.5 - 14.5 % AO Workflow SS Hematocrit (Bld) [Volume fraction] 42.3 % Invalid Interpretation Code 42.0 - 52.0 % AO Workflow SS Hemoglobin (Bld) [Mass/Vol] 14.6 G/dL Invalid Interpretation Code 14.0 - 18.0 G/dL AO Workflow SS Lymphocyte, Absolute 2.9 103/mcL Invalid Interpretation Code 0.8 - 3.9 10^3/mcL AO Workflow SS Lymphocytes/100 WBC (Bld) 27.0 % Invalid Interpretation Code 10.0 - 50.0 % AO Workflow SS MCH (RBC) [Entitic mass] 30.9 pg Invalid Interpretation Code 27.0 - 31.2 pg AO Workflow SS MCHC 34.4 G/dL Invalid Interpretation Code 31.8 - 35.4 G/dL AO Workflow SS MCV (RBC) [Entitic vol] 89.7 fL Invalid Interpretation Code 80.0 - 94.0 fL AO Workflow SS Monocyte distribution width Auto (Bld) [Entitic vol] 20.65 Invalid Interpretation Code 0.00 - 20.00 AO Workflow SS Comment on above: Result Comment: For adults in ED, MDW>20.0 may be associated with a higher risk of sepsis during the first 12hrs of hospital admission Monocyte, Absolute 0.8 103/mcL Invalid Interpretation Code 0.2 - 1.0 10^3/mcL AO Workflow SS Monocytes/100 WBC (Bld) 7.5 % Invalid Interpretation Code 1.7 - 13.0 % AO Workflow SS Neutrophil, Absolute 6.7 103/mcL Invalid Interpretation Code 2.9 - 6.2 10^3/mcL AO Workflow SS Neutrophils/100 WBC (Bld) 62.2 % Invalid Interpretation Code 37.0 - 80.0 % AO Workflow SS Platelet mean volume (Bld) [Entitic vol] 7.3 fL Invalid Interpretation Code 7.4 - 10.4 fL AO Workflow SS Platelets (Bld) [#/Vol] 363 103/mcL Invalid Interpretation Code 130 - 400 10^3/mcL AO Workflow SS RBC (Bld) [#/Vol] 4.72 106/mcL Invalid Interpretation Code 4.04 - 6.13 10^6/mcL AO Workflow SS WBC (Bld) [#/Vol] 10.8 103/mcL Invalid Interpretation Code 4.6 - 10.8 10^3/mcL AO Workflow SS C-REACTIVE PROTEINon 022 CRP 2.80 mg/dl High 0.00 - 0.90 [facility] Comment on above: Performed By: #### 2 [id number] #### [facility],[address] [place] [address] 63886 CBC + DIFFon 05-23-2022 Baso # 0.10 x10EE3/UL Normal 0.00 - 0.10 [facility] Comment on above: Performed By: #### 2 05083 #### [facility],[address] [place] [address] 90176 Basophils/100 WBC (Bld) 1.1 % Normal 0.0 - 2.0 [facility] Comment on above: Performed By: #### 2 85356 #### [facility],[address] [place] [address] CBC + DIFF Normal [facility] Comment on above: Result Comment: CBC- COMPLETE BLOOD COUNT Performed By: #### 2 89567 #### [facility],[address] [place] [address] EO # 0.20 x10EE3/UL Normal 0.00 - 0.50 [facility] Comment on above: Performed By: #### 2 70275 #### [facility],[address] [place] [address] Eosinophils/100 WBC (Bld) 1.2 % Normal 0.0 - 7.0 [facility] Comment on above: Performed By: #### 2 23271 #### [facility],[address] [place] [address] Erythrocyte distribution width (RBC) [Ratio] 13.4 % Normal 12.0 - 15.6 [facility] Comment on above: Performed By: #### 2 93181 #### [place] [address] Hematocrit (Bld) [Volume fraction] 44.7 % Normal 40.0 - 52.0 [facility] Comment on above: Performed By: #### 2 17564 #### [facility],[address] [place] [address] Hemoglobin (Bld) [Mass/Vol] 15.0 g/dL Normal 13.0 - 17.5 [facility] Comment on above: Performed By: #### 2 55268 #### [place] [address] Lymph # 2.80 x10EE3/UL Normal 0.80 - 2.80 [facility] Comment on above: Performed By: #### 2 02279 #### [facility],[address] [place] [address] Lymphocytes/100 WBC (Bld) 19.8 % Low 20.0 - 45.0 [facility] Comment on above: Performed By: #### 2 86697 #### [facility],[address] [place] [address] MANUAL DIFF N/A Normal [facility] Comment on above: Performed By: #### 2 03571 #### [facility],[address] [place] [address] MCH (RBC) [Entitic mass] 30 pg Normal 27 - 33 [facility] Comment on above: Performed By: #### 2 68854 #### [place] [address] MCHC 34 X10 3 Normal 32 - 36 [facility] Comment on above: Performed By: #### 2 12986 #### [facility],[address] [place] [address] MCV (RBC) [Entitic vol] 90 fL Normal 81 - 98 [facility] Comment on above: Performed By: #### 2 16206 #### [place] [address] [place] # 1.00 x10EE3/UL Normal 0.20 - 1.00 [facility] Comment on above: Performed By: #### 2 85107 #### [facility],[address] [place] [address] MONOS % 6.8 % Normal 0.0 - 10.0 [facility] Comment on above: Performed By: #### 2 33020 #### [facility],[address] [place] [address] Morphology Alonso (Bld) [Interp] N/A Normal [facility] Comment on above: Result Comment: {CD] Performed By: #### 2 52885 #### [facility],[address] [place] [address] Neut # 10.00 x10EE3/UL High 1.50 - 7.10 [facility] Comment on above: Performed By: #### 2 42585 #### [facility],[address] [place] [address] 12939 Neutrophils/100 WBC (Bld) 71.1 % Normal 46.0 - 76.0 [facility] Comment on above: Performed By: #### 2 12359 #### [facility],[address] [place] [address] 27153 PLATELET 313 x10EE3/UL Normal 150 - 450 [facility] Comment on above: Performed By: #### 2 03547 #### [facility],[address] [place] [address] 9[address]13 Platelet mean volume (Bld) [Entitic vol] 7.7 fL Normal 6.4 - 10.5 [facility] Comment on above: Result Comment: AUTO MATED DIFFERENTIAL Performed By: #### 2 64359 #### [facility],[address] [place] [address] 25940 RBC 4.95 x 10EE6/UL Normal 4.50 - 6.00 [facility] Comment on above: Performed By: #### 2 92637 #### [facility],[address] [place] [address] 22649 WBC 14.0 x 10EE3/UL High 4.5 - 10.8 [facility] Comment on above: Performed By: #### 2 58314 #### [facility],[address] [place] [address] 83876 CMP with eGFRon 05-23-2022 AGE 42 years Normal [facility] Comment on above: Performed By: #### 2 55575 #### [facility],[address] [place] [address] 43297 Albumin [Mass/Vol] 3.5 g/dL Normal 3.4 - 5.0 [facility] Comment on above: Performed By: #### 2 87020 #### [facility] [place] [address] 58612 Albumin/Globulin [Mass ratio] 0.9 {ratio} Normal 0.9 - 1.6 [facility] Comment on above: Performed By: #### 2 88455 #### [facility],[address] [place] [address] 45987 ALK PHOS 44 U/L Low 46 - 116 [facility] Comment on above: Performed By: #### 2 61741 #### [facility],[address] [place] [address] 96352 ALT [Catalytic activity/Vol] 21 U/L Normal 16 - 63 [facility] Comment on above: Performed By: #### 2 23388 #### [facility],[address] [place] [address] 83137 Anion gap [Moles/Vol] 10 mmol/L Normal 10 - 20 [facility] Comment on above: Performed By: #### 2 78319 #### [facility],[address] [place] [address] 99101 AST [Catalytic activity/Vol] 16 U/L Normal 15 - 37 [facility] Comment on above: Performed By: #### 2 24388 #### [facility],[address] [place] [address] 74216 B/C RATIO 11 ratio Normal 0 - 30 [facility] Comment on above: Performed By: #### 2 58254 #### [facility],[address] [place] [address] 11303 Bilirubin [Mass/Vol] 0.2 mg/dL Normal 0.2 - 1.0 [facility] Comment on above: Performed By: #### 2 82120 #### [facility],[address] [place] [address] 74983 Calcium [Mass/Vol] 9.0 mg/dL Normal 8.5 - 10.1 [facility] Comment on above: Performed By: #### 2 28360 #### [facility],[address] [place] [address] 67865 Chloride [Moles/Vol] 101 mmol/L Normal 98 - 107 [facility] Comment on above: Performed By: #### 2 91523 #### [facility],[address] [place] [address] 16820 CMP with eGFR Normal [facility] Comment on above: Result Comment: COMP REHENSIVE METABOLIC PANEL Performed By: #### 2 06396 #### [facility],[address] [place] [address] 63141 CO2 [Moles/Vol] 30.2 mmol/L Normal 21.0 - 32.0 [facility] Comment on above: Performed By: #### 2 75597 #### [facility],[address] [place] [address] 31901 Creatinine [Mass/Vol] 0.91 mg/dL Normal 0.70 - 1.30 [facility] Comment on above: Performed By: #### 2 41500 #### [facility],[address] [place] [address] 70308 GFR/1.73 sq M.predicted among non-blacks MDRD (S/P/Bld) [Vol rate/Area] mL/min/{1.73_m2} Normal 60 - 999 [facility] Comment on above: Performed By: #### 2 23004 #### [facility],[address] [place], [place] [address] Result Comment: ACCO RDING TO THE NATIONAL KIDNEY DISEASE EDUCATION PROGRAM(NKDE), A NORMAL eGFR IS A VALUE GREATER THAN OR EQUAL TO 60 ML/MIN/1.73 SQ METERS. CHRONIC KIDNEY DISEASE: <60mL/MIN/1.73 SQ METERS KIDNEY FAILURE: <15mL/MIN/1.73 SQ METERS THIS TEST SHOULD ONLY BE USED FOR PATIENTS 18 YEARS OF AGE AND OLDER. Globulin (S) [Mass/Vol] 3.7 g/dL Normal 1.5 - 3.8 [facility] Comment on above: Performed By: #### 2 49612 #### [facility],[address] [place] [address] 99475 Glucose [Mass/Vol] 104 mg/dL Normal 74 - 106 [facility] Comment on above: Performed By: #### 2 62089 #### [facility],[address] [place] [address] 72163 Potassium [Moles/Vol] 3.8 mmol/L Normal 3.5 - 5.1 [facility] Comment on above: Performed By: #### 2 96044 #### [facility],[address] [place] [address] 06545 Protein [Mass/Vol] 7.2 g/dL Normal 6.4 - 8.2 [facility] Comment on above: Performed By: #### 2 12623 #### [facility],[address] [place] [address] 12171 Sodium [Moles/Vol] 137 mmol/L Normal 136 - 145 [facility] Comment on above: Performed By: #### 2 13623 #### [facility],[address] [place] [address] 83964 Urea nitrogen [Mass/Vol] 10 mg/dL Normal 7 - 18 [facility] Comment on above: Performed By: #### 2 02038 #### [facility],[address] [place] [address] BRAIN W/O CONTRASTon 12-0 CT BRAIN W/O CONTRAST [place] [address] Patient: PATRICK KOROMA Phone#: : [phone] Age: 42 Gender: M Pt. Type: ER Account: [id number] Location: [facility] Ordering: DR. PATRICK VIGIL Exam Date: 05/22/2022/23:10 Family Phys: Charge Code: [id number] Physician: Evans Order #: [id number] Dose#: [id number] PROCEDURE: CT BRAIN WITHOUT CONTRAST COMPARISON: [facility], CT, BRAIN W/O CON, 12/03/2011, 2:09. INDICATIONS: Seizure. TECHNIQUE: CT images were obtained without contrast material. All CT scans at this facility use dose modulation, iterative reconstruction, and/or weight based dosing when appropriate to reduce radiation dose to as low as reasonably achievable. IV CONTRAST: No IV contrast used,0ml TOTAL DOSE: 52.30 CTDIvol(mGy) FINDINGS: CEREBRUM: No edema, hemorrhage, mass, acute infarction, or inappropriate atrophy. CEREBELLUM: No edema, hemorrhage, mass, acute infarction, or inappropriate atrophy. BRAINSTEM: No edema, hemorrhage, mass, acute infarction, or inappropriate atrophy. CSF SPACES: Ventricles, cisterns, and sulci are appropriate for age. No hydrocephalus, subarachnoid hemorrhage, or mass. SKULL: No mass or other significant visible lesion. SINUSES: There is mucosal thickening in the ethmoid sinuses. ORBITS: Limited views are unremarkable. OTHER: Negative. CONCLUSION: 1. There is no evidence of acute intracranial abnormality. Dictated by: Scarlet Waters MD on 05/23/2022 at 14:38 Approved by: Scarlet Waters MD on 05/23/2022 at 14:41 Normal [facility] SEDRATEon 05-23-2022 SEDRATE 13 mm/hr Normal 0 - 20 [facility] Comment on above: Performed By: #### 2 04681 #### [place] [id number] TROPONIN I, HIGH SENSITIVITY on 05-23-2022 HS TROPONIN 4.4 pg/mL Normal 0.0 - 76.2 [facility] Comment on above: Performed By: #### 2 80174 #### [facility],[address] [place] [address] 13917 XR SHOULDER RIGHT (MIN 2 VIE WS)on 04-25-2022 XR SHOULDER RIGHT (MIN 2 VIEWS) EXAMINATION: THREE XRAY VIEWS OF THE RIGHT SHOULDER 04/25/2022 5:40 pm COMPARISON: None. HISTORY: ORDERING SYSTEM PROVIDED HISTORY: ac joint deformity/pain TECHNOLOGIST PROVIDED HISTORY: Reason for exam:->ac joint deformity/pain FINDINGS: Glenohumeral joint is normally aligned. No evidence of acute fracture or dislocation. No abnormal periarticular calcifications. The AC joint is unremarkable in appearance. Visualized lung is unremarkable. IMPRESSION: No acute abnormality. Interpreted by: Rosas Silva MD Signed by: Rosas Silva MD 04/25/22 Final result Normal [facility] Comment on above: Order Comment: Reaso n for exam:->ac joint deformity/pain No acute abnormality . [facility] EXAMINATION: THREE XRAY VIEWS OF THE RIGHT SHOULDER 04/25/2022 5:40 pm COMPARISON: None. HISTORY: ORDERING SYSTEM PROVIDED HISTORY: ac joint deformity/pain TECHNOLOGIST PROVIDED HISTORY: Reason for exam:->ac joint deformity/pain FINDINGS: Glenohumeral joint is normally aligned. No evidence of acute fracture or dislocation. No abnormal periarticular calcifications. The AC joint is unremarkable in appearance. Visualized lung is unremarkable. [facility] Rosas Silva MD - 04/25/2022 EXAMINATION: THREE XRAY VIEWS OF THE RIGHT SHOULDER 04/25/2022 5:40 pm COMPARISON: None. HISTORY: ORDERING SYSTEM PROVIDED HISTORY: ac joint deformity/pain TECHNOLOGIST PROVIDED HISTORY: Reason for exam:->ac joint deformity/pain FINDINGS: Glenohumeral joint is normally aligned. No evidence of acute fracture or dislocation. No abnormal periarticular calcifications. The AC joint is unremarkable in appearance. Visualized lung is unremarkable. IMPRESSION: No acute abnormality. [facility] Phone: Radiology Study observation (narrative) [facility] Phone: XR SHOULDER RIGHT (MIN 2 VIE WS)Ordered By: Rosas Silva on 04-25-2022 [employer] Phone: XR WRIST RIGHT (MIN 3 VIEWS) on 04-03-2022 XR WRIST RIGHT (MIN 3 VIEWS) EXAMINATION: XRAY VIEWS OF THE RIGHT WRIST 04/03/2022 4:10 pm COMPARISON: None. HISTORY: ORDERING SYSTEM PROVIDED HISTORY: crush injury TECHNOLOGIST PROVIDED HISTORY: Reason for exam:->crush injury FINDINGS: No fracture or dislocation involving the right wrist. Normal carpal bone alignment. No radiopaque foreign body. IMPRESSION: No acute osseous abnormality involving the right wrist. Interpreted by: Abdifatah Child DO Signed by: Abdifatah Child DO 04/03/22 Final result Normal [facility] Comment on above: Order Comment: Reaso n for exam:->crush injury No acute osseous abnormality involving the right wrist. [facility] EXAMINATION: XRAY VIEWS OF THE RIGHT WRIST 04/03/2022 4:10 pm COMPARISON: None. HISTORY: ORDERING SYSTEM PROVIDED HISTORY: crush injury TECHNOLOGIST PROVIDED HISTORY: Reason for exam:->crush injury FINDINGS: No fracture or dislocation involving the right wrist. Normal carpal bone alignment. No radiopaque foreign body. [facility] Abdifatah Child DO - 04/03/2022 EXAMINATION: XRAY VIEWS OF THE RIGHT WRIST 04/03/2022 4:10 pm COMPARISON: None. HISTORY: ORDERING SYSTEM PROVIDED HISTORY: crush injury TECHNOLOGIST PROVIDED HISTORY: Reason for exam:->crush injury FINDINGS: No fracture or dislocation involving the right wrist. Normal carpal bone alignment. No radiopaque foreign body. IMPRESSION: No acute osseous abnormality involving the right wrist. [employer] Phone: Radiology Study observation (narrative) [employer] Phone: XR WRIST RIGHT (MIN 3 VIEWS) Ordered By: Abdifatah Child on 04-03-2022 [employer] Phone: CT CERVICAL SPINE WO CONTRAS Ton 03-08-2022 [id number] Tomography ACCESSION EXAM DATE/TIME PROCEDURE ORDERING PROVIDER [id number] 03/08/2022 01:[address] Spine Cervical w/o [id number] -DARRION, GILES Contrast CPT code 48015 Reason For Exam (CT Spine Cervical w/o Contrast) neck pain Report CT CERVICAL SPINE: CLINICAL INDICATION: Neck pain, trauma TECHNIQUE: Transaxial sequence through the cervical spine. Coronal and sagittal reconstructions included. COMPARISON: None FINDINGS: There is nonspecific straightening of the normal cervical lordosis. No prevertebral soft tissue swelling. Craniocervical and atlantoaxial articulations are intact. Predental interval is not widened. Vertebral body heights are maintained. No cervical spine fracture. No spondylolisthesis. No significant degenerative changes. No high-grade osseous encroachment of the central canal or neural foramina. Imaged neck soft tissues and lung apices are unremarkable. IMPRESSION: No cervical spine fracture. Report Dictated on --- Final --- Dictating Physician: MD HAAS KEVIN Signed Date and Time: 03/08/2022 1:49 am Signed by: MD HAAS KEVIN Transcribed Date and Time: 03/08/2022 1:50 [facility] Shankar Haas MD - 03/08/2022 Patient Name: PATRICK KOROMA Computed Tomography ACCESSION EXAM DATE/TIME PROCEDURE ORDERING PROVIDER [id number] 03/08/2022 01:[address] Spine Cervical w/o [id number] -DARRION, GILES Contrast CPT code 64050 Reason For Exam (CT Spine Cervical w/o Contrast) neck pain Report CT CERVICAL SPINE: CLINICAL INDICATION: Neck pain, trauma TECHNIQUE: Transaxial sequence through the cervical spine. Coronal and sagittal reconstructions included. COMPARISON: None FINDINGS: There is nonspecific straightening of the normal cervical lordosis. No prevertebral soft tissue swelling. Craniocervical and atlantoaxial articulations are intact. Predental interval is not widened. Vertebral body heights are maintained. No cervical spine fracture. No spondylolisthesis. No significant degenerative changes. No high-grade osseous encroachment of the central canal or neural foramina. Imaged neck soft tissues and lung apices are unremarkable. IMPRESSION: No cervical spine fracture. Report Dictated on --- Final --- Dictating Physician: MD HAAS KEVIN Signed Date and Time: 03/08/2022 1:49 am Signed by: MD HAAS KEVIN Transcribed Date and Time: 03/08/2022 1:50 [facility] Work Phone: [facility] Work Phone: CT HEAD WO CONTRASTon 2021 Patient Name: PATRICK KOROMA Computed Tomography ACCESSION EXAM DATE/TIME PROCEDURE ORDERING PROVIDER [id number] 03/08/2022 01:[address] Head or Brain w/o [id number] -DARRION, GILES Contrast CPT code 71900 Reason For Exam (CT Head or Brain w/o Contrast) head injury Report CT HEAD: CLINICAL INDICATION: Headache, seizures, head injury TECHNIQUE: Transaxial CT sequence performed through the head with 3 mm reconstruction. Sagittal and Coronal reconstruction images included. COMPARISON: None FINDINGS: Ventricles and sulci are normal in size and configuration for age. No extra-axial collection. No acute intracranial hemorrhage. No mass effect or midline shift. No CT evidence of an acute large territorial infarction. Imaged paranasal sinuses and mastoid air cells are well aerated. Calvarium is unremarkable. IMPRESSION: No acute intracranial hemorrhage or mass effect. Report Dictated on --- Final --- Dictating Physician: MD HAAS KEVIN Signed Date and Time: 03/08/2022 1:47 am Signed by: MD HAAS KEVIN Transcribed Date and Time: 03/08/2022 1:48 [facility] Shankar Haas MD - 03/08/2022 Patient Name: PATRICK KOROMA Computed Tomography ACCESSION EXAM DATE/TIME PROCEDURE ORDERING PROVIDER [id number] 03/08/2022 01:[address] Head or Brain w/o [id number] -DARRION, GILES Contrast CPT code 72630 Reason For Exam (CT Head or Brain w/o Contrast) head injury Report CT HEAD: CLINICAL INDICATION: Headache, seizures, head injury TECHNIQUE: Transaxial CT sequence performed through the head with 3 mm reconstruction. Sagittal and Coronal reconstruction images included. COMPARISON: None FINDINGS: Ventricles and sulci are normal in size and configuration for age. No extra-axial collection. No acute intracranial hemorrhage. No mass effect or midline shift. No CT evidence of an acute large territorial infarction. Imaged paranasal sinuses and mastoid air cells are well aerated. Calvarium is unremarkable. IMPRESSION: No acute intracranial hemorrhage or mass effect. Report Dictated on --- Final --- Dictating Physician: MD HAAS KEVIN Signed Date and Time: 03/08/2022 1:47 am Signed by: MD HAAS KEVIN Transcribed Date and Time: 03/08/2022 1:48 [facility] Work Phone: CT HEAD WO CONTRASTOrdered B y: Shankar Haas on 03-08-2022 [facility] Work Phone: CT Head or Brain w/o Contras ton 03-08-2022 CT Head or Brain w/o Contrast Patient Name: PATRICK KOROMA Computed Tomography ACCESSION EXAM DATE/TIME PROCEDURE ORDERING PROVIDER [id number] 03/08/2022 01:[address] Head or Brain w/o [id number] -DARRION, GILES Contrast CPT code 30905 Reason For Exam (CT Head or Brain w/o Contrast) head injury Report CT HEAD: CLINICAL INDICATION: Headache, seizures, head injury TECHNIQUE: Transaxial CT sequence performed through the head with 3 mm reconstruction. Sagittal and Coronal reconstruction images included. COMPARISON: None FINDINGS: Ventricles and sulci are normal in size and configuration for age. No extra-axial collection. No acute intracranial hemorrhage. No mass effect or midline shift. No CT evidence of an acute large territorial infarction. Imaged paranasal sinuses and mastoid air cells are well aerated. Calvarium is unremarkable. IMPRESSION: No acute intracranial hemorrhage or mass effect. Report Dictated on Final Dictating Physician: MD HAAS KEVIN Signed Date and Time: 03/08/2022 1:47 am Signed by: MD HAAS KEVIN Transcribed Date and Time: 03/08/2022 1:48 Normal [facility] CT Spine Cervical w/o Contra ston 03-08-2022 CT Spine Cervical w/o Contrast Patient Name: PATRICK KOROMA Computed Tomography ACCESSION EXAM DATE/TIME PROCEDURE ORDERING PROVIDER [id number] 03/08/2022 01:[address] Spine Cervical w/o [id number] -DARRION, GILES Contrast CPT code 25846 Reason For Exam (CT Spine Cervical w/o Contrast) neck pain Report CT CERVICAL SPINE: CLINICAL INDICATION: Neck pain, trauma TECHNIQUE: Transaxial sequence through the cervical spine. Coronal and sagittal reconstructions included. COMPARISON: None FINDINGS: There is nonspecific straightening of the normal cervical lordosis. No prevertebral soft tissue swelling. Craniocervical and atlantoaxial articulations are intact. Predental interval is not widened. Vertebral body heights are maintained. No cervical spine fracture. No spondylolisthesis. No significant degenerative changes. No high-grade osseous encroachment of the central canal or neural foramina. Imaged neck soft tissues and lung apices are unremarkable. IMPRESSION: No cervical spine fracture. Report Dictated on Final Dictating Physician: MD HAAS KEVIN Signed Date and Time: 03/08/2022 1:49 am Signed by: MD HAAS KEVIN Transcribed Date and Time: 03/08/2022 1:50 Normal [facility] ED Provider Noteon ED Provider Note [facility] ED EMERGENCY DEPARTMENT ENCOUNTER Pt Name: Patrick Koroma Birthdate 1980 Date of evaluation: 03/08/2022 Provider: Giles Maier DO CHIEF COMPLAINT Chief Complaint Patient presents with Head Injury HISTORY OF PRESENT ILLNESS (Location/Symptom, Timing/Onset, Context/Setting, Quality, Duration, Modifying Factors, Severity) Note limiting factors. I wore a surgical face mask for the entirety of this encounter. HPI Patrick Koroma is a 42 y.o. male with past medical history significant for ICH who presents to the emergency department states his head was injured by 2 x 4 prior to arrival. Notes mild headache. Denies any vomiting, loss of consciousness does note some mild neck pain as well. Symptoms are constant, severe without alleviating factors. There is no radiation component of symptoms. Old chart reviewed: Summary of pertinent elements includes: No recent advanced imaging of the head noted. REVIEW OF SYSTEMS (2+ for level 4; 10+ for level 5) All other systems reviewed and are negative except as noted in history of present illness At least 10 review of systems reviewed and are negative except as noted in history of present illness PAST MEDICAL HISTORY Intracranial hemorrhage SURGICAL HISTORY Hernia repair CURRENT MEDICATIONS Previous Medications CARBAMAZEPINE (TEGRETOL PO) Take by mouth ALLERGIES Keflex [cephalexin], Keppra [levetiracetam], and Morphine FAMILY HISTORY No family history on file. SOCIAL HISTORY Social History Socioeconomic History Marital status: Single Tobacco Use Smoking status: Every Day SCREENINGS PHYSICAL EXAM (up to 7 for level 4, 8 or more for level 5) BP 134/89 Pulse 100 Temp 98.3 ?F (36.8 ?C) (Temporal) Resp 18 SpO2 98% Nursing triage notes reviewed, Vital signs reviewed Constitutional: please see mdm HENT: MMM Eyes: Pupils equal round and reactive to light, Extraocular muscles intact Neck: No stridor, no JVD, full neck ROM Lungs: Clear to auscultation, No wheezing or rales. No increased work of breathing, no conversational dyspnea, no accessory muscle use, no nasal flaring. No respiratory distress noted Heart: Regular rate and rhythm, No murmurs, No rubs and No gallops, 2+ distal pulses (radial, femoral, posterior tibial) in all extremities Abdomen: Soft, there is no tenderness, rigidity, rebound or guarding, no obvious peritoneal signs, no palpable pulsatile abdominal masses, no auscultated abdominal bruits : No CVAT Extremities: No edema Neuro: Alert & Oriented to person, place, and time. AT baseline. CN II - XII intact. No pain with EOM movement. Negative test of skew. Normal speech. 5/5 strength in upper and lower extremities in flexion and extention. Intact sensation to light touch in upper and lower extremity dermatomes. NO truncal or extremity ataxia. No dysdiadochokinesia. Normal Gait. 2+ reflexes (brachial, patella, achilles). No meningeal signs. Negative babinski. NIH 0. Skin: No rash or lesions noted DIAGNOSTIC RESULTS EKG (if obtained) interpreted in ED course. Please see below. EMERGENCY DEPARTMENT COURSE and DIFFERENTIAL DIAGNOSIS/MDM: Labs and Images interpreted in ED course. All labs and imaging have been personally reviewed by me. Medications - No data to display MDM . Patrick Koroma 42 y.o. male. The patient was examined. Patrick Koroma was hemodynamically stable, afebrile, nontoxic-appearing. Exam without focal neurologic deficits no obvious cephalhematoma. Given the patient's history of ICH obtained advanced imaging of the head and cervical spine to rule out acute life-threatening injuries. Imaging was negative. The patient was appropriate for discharge home with concussion precautions.. The patient was instructed to return to the ED if his/her symptoms changed or worsened. The patient was instructed to schedule and appointment with PCP in the next 24 hours or at the earliest possible appointment for reassessment and further management The pateint agreed with the plan and expressed understanding. I am the weblogic developer of record REVAL: Remained hemodynamically stable, neurovascular intact appropriate for discharge home. CRITICAL CARE TIME Total Critical Care time was 00 minutes, excluding separately reportable procedures. There was a high probability of clinically significant/life threatening deterioration in the patient's condition whichrequired my urgent intervention. CONSULTS: None PROCEDURES: Unless otherwise noted below, none Procedures FINAL IMPRESSION 1. Closed head injury, initial encounter DISPOSITION/PLAN Disposition: Discharge to home Patient condition is good PATIENT REFERRED TO: [facility] [id number] Schedule an appointment as soon as possible for a visit in 1 week DISCHARGE MEDICATIONS: New Prescriptions No medications o (more content not included)... Normal [facility] No Panel Informationon 03-08 Radiology Study observation (narrative) [facility] Work Phone: Absolute lymphocyte counton 01-01-2022 Lymphocytes Auto (Unsp spec) [#/Vol] 2.19 10*3/uL 0.83-4.51 [facility] Work Phone: Basophil percentageon 2021 Basophils/100 WBC (Bld) 0.5 % 0-1 [facility] Work Phone: Bilirubin [Mass/Vol] 0.20 mg/dL 0.20-1.00 [facility] Work Phone: Comment on above: For patients on eltr ombopag therapy, use of Dimension [place] TBIL is not recommended. Chloride [Moles/Vol] 111 mmol/L 98-107 [facility] Work Phone: Eosinophils/100 WBC (Bld) 1.6 % 0-5 [facility] Work Phone: Glucose [Mass/Vol] 103 mg/dL 74-106 [facility] Work Phone: Comment on above: Fasting Glucose resu lt from 100 to 125 mg/dL suggests IMPAIRED HOMEOSTASIS per A.D.A. criteria. Neutrophils (Bld) [#/Vol] 7.1 10*3/uL 2.0-7.7 [facility] Work Phone: Neutrophils/100 WBC (Bld) 70.0 % 47-70 [facility] Work Phone: Potassium [Moles/Vol] 3.9 mmol/L 3.5-5.1 [facility] Work Phone: Protein [Mass/Vol] 7.1 g/dL 6.4-8.2 [facility] Work Phone: Sodium [Moles/Vol] 140 mmol/L 136-145 [facility] Work Phone: WBC (Bld) [#/Vol] 10.2 10*3/uL 4.4-11.0 [facility] Work Phone: Blood erythrocytes count (nu mber/volume)on 01-01-2022 RBC (Bld) [#/Vol] 4.65 10*6/uL 4.6-6.2 [facility] Work Phone: Blood hemoglobin measurement (mass/volume)on 01-01-2022 Hemoglobin (Bld) [Mass/Vol] 14.1 g/dL 13.0-16.5 [facility] Work Phone: Blood lymphocytes/100 leukoc yteson 01-01-2022 Lymphocytes/100 WBC (Bld) 21.6 % 19-41 [facility] Work Phone: Blood monocytes/100 leukocyt eson 01-01-2022 Monocytes/100 WBC (Bld) 5.8 % 0-10 [facility] Work Phone: Blood platelet mean volumeon 01-01-2022 Platelet mean volume (Bld) [Entitic vol] 9.2 fL 6.2-12.0 [facility] Work Phone: Determination of erythrocyte mean corpuscular volume (MCV)on 01-01-2022 MCV (RBC) [Entitic vol] 92.7 fL 80-94 [facility] Work Phone: Direct bilirubinon 2 Bilirubin.direct [Mass/Vol] 0.09 mg/dL 0.00-0.30 [facility] Work Phone: Hematocrit Auto (Bld) [Volum e fraction]on 01-01-2022 Hematocrit (Bld) [Volume fraction] 43.1 % 40-54 [facility] Work Phone: INR in Blood by Coagulation assayon 01-01-2022 INR Coag (Bld) [Relative time] 0.9 {INR} [facility] Work Phone: Laboratory - Chemistry and C hemistry - challengeon 01-01-2022 ALP [Catalytic activity/Vol] 43 U/L 45-117 [facility] Work Phone: ALT [Catalytic activity/Vol] 27 U/L 16-61 [facility] Work Phone: CO2 [Moles/Vol] 25.0 mmol/L 21.0-32.0 [facility] Work Phone: Globulin (S) [Mass/Vol] 3.8 g/dL 2.2-4.2 [facility] Work Phone: Urea nitrogen/Creatinine [Mass ratio] 9.2 mg/mg 10-20 [facility] Work Phone: Laboratory - Coagulationon 0 01-01-2022 aPTT Coag (Bld) [Time] 25.8 s 24.1-36.2 [facility] Work Phone: PT Coag (PPP) [Time] 11.9 s 11.7-14.9 [facility] Work Phone: Laboratory - Hematology and Cell countson 01-01-2022 Erythrocyte distribution width (RBC) [Entitic vol] 43.3 fL 35.1-43.9 [facility] Work Phone: Erythrocyte distribution width (RBC) [Ratio] 12.7 % 11.6-14.6 [facility] Work Phone: Immature granulocytes/100 WBC (Bld) 0.500 % 0.0-0.9 [facility] Work Phone: Comment on above: IG% - Immature Granu locytes (promyelocytes, myelocytes and metamyelocytes) > 1% indicates that a LEFT SHIFT is Present. MCH (RBC) [Entitic mass] 30.3 pg 27.0-32.0 [facility] Work Phone: Nucleated RBC/100 WBC (Bld) [Ratio] 0 % 0-5 [facility] Work Phone: MCHC Auto (RBC) [Mass/Vol]on 01-01-2022 MCHC (RBC) [Mass/Vol] 32.7 g/dL 32-36 [facility] Work Phone: No Panel Informationon 01-01 Estimated Creatinine Clearance Calc 125.00 ml/min [facility] Work Phone: Estimated GFR (MDRD) Amer 123 mL/min >60 [facility] Work Phone: Comment on above: GFR Calc Estimated GFR (MDRD) Non-Af Amer 101 mL/min >60 [facility] Work Phone: Comment on above: Non- GFR Calc Platelets bldon 01-01-2022 Platelets (Bld) [#/Vol] 328 10*3/uL 150-450 [facility] Work Phone: Serum or plasma albumin za urement (mass/volume)on 01-01-2022 Albumin [Mass/Vol] 3.3 g/dL 3.2-5.0 [facility] Work Phone: Serum or plasma calcium za urement (mass/volume)on 01-01-2022 Calcium [Mass/Vol] 9.1 mg/dL 8.5-10.1 [facility] Work Phone: Serum or plasma creatinine m easurement (mass/volume)on 01-01-2022 Creatinine [Mass/Vol] 0.87 mg/dL 0.70-1.30 [facility] Work Phone: Comment on above: The validity of the calculated GFR & GFRAA in patients over 70 years has not been determined. Clinical correlation is essential. Serum or plasma urea nitroge n measurement (mass/volume)on 01-01-2022 Urea nitrogen [Mass/Vol] 8 mg/dL 7-18 [facility] Work Phone: Thin prep Papanicolaou smear with manual screeningon 01-01-2022 Thin prep Papanicolaou smear with manual screening 22 U/L 15-37 [facility] Work Phone: Thin prep Papanicolaou smear with manual screening 4 5-15 [facility] Work Phone: LABORATORYOrdered By: Sara Echeverria on 12-21-2021 Albumin BCP dye [Mass/Vol] 3.7 G/dL Invalid Interpretation Code 3.5 - 5.0 G/dL AO ADM SS Albumin/Globulin [Mass ratio] 1.2 {ratio} Invalid Interpretation Code 1.1 - 2.5 ratio AO ADM SS ALP [Catalytic activity/Vol] 48 U/L Invalid Interpretation Code 40 - 135 U/L AO ADM SS ALT With P-5'-P [Catalytic activity/Vol] 22 U/L Invalid Interpretation Code 16 - 63 U/L AO ADM SS AST With P-5'-P [Catalytic activity/Vol] 22 U/L Invalid Interpretation Code 10 - 40 U/L AO ADM SS Basophil, Absolute 0.1 103/mcL Invalid Interpretation Code 0.0 - 0.2 10^3/mcL AO Workflow SS Basophils/100 WBC (Bld) 0.9 % Invalid Interpretation Code 0.0 - 2.5 % AO Workflow SS Bilirubin [Mass/Vol] 0.3 mg/dL Invalid Interpretation Code 0.2 - 1.0 mg/dL AO ADM SS Calcium [Mass/Vol] 8.9 mg/dL Invalid Interpretation Code 8.4 - 10.2 mg/dL AO ADM SS Chloride [Moles/Vol] 106 mmol/L Invalid Interpretation Code 98 - 107 mmol/L AO ADM SS CO2 [Moles/Vol] 28 mmol/L Invalid Interpretation Code 22 - 29 mmol/L AO ADM SS Creatinine [Mass/Vol] 0.93 mg/dL Invalid Interpretation Code 0.70 - 1.30 mg/dL AO ADM SS Electrolyte Balance 8.0 mEq/L Invalid Interpretation Code 4.0 - 15.0 mEq/L AO ADM SS Eosinophil, Absolute 0.2 103/mcL Invalid Interpretation Code 0.0 - 0.4 10^3/mcL AO Workflow SS Eosinophils/100 WBC (Bld) 2.4 % Invalid Interpretation Code 0.0 - 7.0 % AO Workflow SS Erythrocyte distribution width (RBC) [Ratio] 13.1 % Invalid Interpretation Code 11.5 - 14.5 % AO Workflow SS Globulin 3.0 G/dL Invalid Interpretation Code AO ADM SS Glucose [Mass/Vol] 111 mg/dL Invalid Interpretation Code 70 - 105 mg/dL AO ADM SS Hematocrit (Bld) [Volume fraction] 40.8 % Invalid Interpretation Code 42.0 - 52.0 % AO Workflow SS Hemoglobin (Bld) [Mass/Vol] 14.1 G/dL Invalid Interpretation Code 14.0 - 18.0 G/dL AO Workflow SS Lipase [Catalytic activity/Vol] 127 U/L Invalid Interpretation Code 73 - 393 U/L AO ADM SS Lymphocyte, Absolute 2.4 103/mcL Invalid Interpretation Code 0.8 - 3.9 10^3/mcL AO Workflow SS Lymphocytes/100 WBC (Bld) 25.6 % Invalid Interpretation Code 10.0 - 50.0 % AO Workflow SS MCH (RBC) [Entitic mass] 31.1 pg Invalid Interpretation Code 27.0 - 31.2 pg AO Workflow SS MCHC 34.5 G/dL Invalid Interpretation Code 31.8 - 35.4 G/dL AO Workflow SS MCV (RBC) [Entitic vol] 89.9 fL Invalid Interpretation Code 80.0 - 94.0 fL AO Workflow SS Monocyte distribution width Auto (Bld) [Entitic vol] 19.18 Invalid Interpretation Code 0.00 - 20.00 AO Workflow SS Comment on above: Result Comment: For ED adult patients suspected of sepsis, MDW<=20.0 does not rule out sepsis or risk of sepsis Monocyte, Absolute 0.6 103/mcL Invalid Interpretation Code 0.2 - 1.0 10^3/mcL AO Workflow SS Monocytes/100 WBC (Bld) 6.6 % Invalid Interpretation Code 1.7 - 13.0 % AO Workflow SS Neutrophil, Absolute 6.1 103/mcL Invalid Interpretation Code 2.9 - 6.2 10^3/mcL AO Workflow SS Neutrophils/100 WBC (Bld) 64.5 % Invalid Interpretation Code 37.0 - 80.0 % AO Workflow SS Platelet mean volume (Bld) [Entitic vol] 7.5 fL Invalid Interpretation Code 7.4 - 10.4 fL AO Workflow SS Platelets (Bld) [#/Vol] 325 103/mcL Invalid Interpretation Code 130 - 400 10^3/mcL AO Workflow SS Potassium [Moles/Vol] 3.7 mmol/L Invalid Interpretation Code 3.5 - 5.1 mmol/L AO ADM SS Protein [Mass/Vol] 6.7 G/dL Invalid Interpretation Code 6.4 - 8.2 G/dL AO ADM SS RBC (Bld) [#/Vol] 4.53 106/mcL Invalid Interpretation Code 4.04 - 6.13 10^6/mcL AO Workflow SS Sodium [Moles/Vol] 142 mmol/L Invalid Interpretation Code 136 - 145 mmol/L AO ADM SS Urea nitrogen [Mass/Vol] 8 mg/dL Invalid Interpretation Code 7 - 18 mg/dL AO ADM SS Urea nitrogen/Creatinine [Mass ratio] 9 ratio Invalid Interpretation Code 7 - 27 ratio AO ADM SS WBC 9.5 103/mcL Invalid Interpretation Code 4.6 - 10.8 10^3/mcL AO Workflow SS LABORATORYOrdered By: SYSTEM SYSTEM on 12-21-2021 GFR 108 ml/min/1.73sqm Invalid Interpretation Code AO Chemistry S GFR Non- 89 ml/min/1.73sqm Invalid Interpretation Code AO Chemistry S Basic Metabolic Panelon 11-15 Calcium [Mass/Vol] 8.8 mg/dL Normal 8.4-10.4 [facility] Comment on above: Performed By: #### L ACT3, MG3, BMP3, HEMDF #### [facility] [employer] [address] [place] [address] Glucose [Mass/Vol] 99 mg/dL Normal 70-100 [facility] Comment on above: Performed By: #### L ACT3, MG3, BMP3, HEMDF #### [facility] [address] [place] [address] Anion gap [Moles/Vol] 6 mmol/L Normal 3-13 [facility] Comment on above: Performed By: #### L ACT3, MG3, BMP3, HEMDF #### [facility] [address] [place] [address] CO2 [Moles/Vol] 27 mmol/L Normal 22-30 [facility] Comment on above: Performed By: #### L ACT3, MG3, BMP3, HEMDF #### [facility] [address] [place] [address] Creatinine [Mass/Vol] 0.69 mg/dL Normal 0.52-1.25 [facility] Comment on above: Performed By: #### L ACT3, MG3, BMP3, HEMDF #### [facility] [address] [place] [address] eGFR OTHER > 90.0 Normal >60 [facility] Comment on above: Result Comment: KDIG O guidelines provide the following GFR categories: Stage GFR(ml/min/1.73 m2) Terms G1 >=90 Normal or high G2 60-89 Mildly decreased* G3a 45-59 Mildly to moderately decreased G3b 30-44 Moderately to severely decreased G4 15-29 Severely decreased G5 <15 Kidney failure *Relative to young adult level. In the absence of evidence of kidney damage, neither GFR category G1 nor G2 fulfill the criteria for CKD. The CKD-EPI equation is validated in individuals 18 years of age and older. Currently the best equation for estimating glomerular filtration rate (GFR) from serum creatinine in children is the [place] equation. It is less accurate in patients with extremes of muscle mass, restriction of dietary protein, ingestion of creatine, extra-renal metabolism of creatinine, or treatment with medications that affect renal tubular creatinine secretion. Performed By: #### L ACT3, MG3, BMP3, HEMDF #### [facility] [address] [place] [address] GFR/1.73 sq M.predicted among blacks MDRD (S/P/Bld) [Vol rate/Area] mL/min/{1.73_m2} Normal >60 [facility] Comment on above: Performed By: #### L ACT3, MG3, BMP3, HEMDF #### [facility] [address] [place] [address] Urea nitrogen [Mass/Vol] 5 mg/dL Low 7-17 [facility] Comment on above: Performed By: #### L ACT3, MG3, BMP3, HEMDF #### [place] [address] [place] [address] Chloride [Moles/Vol] 105 mmol/L Normal 98-107 [facility] Comment on above: Performed By: #### L ACT3, MG3, BMP3, HEMDF #### [place] [address] [place] [address] Potassium [Moles/Vol] 3.8 mmol/L Normal 3.5-5.1 [facility] Comment on above: Performed By: #### L ACT3, MG3, BMP3, HEMDF #### [place] [address] [place] [address] Sodium [Moles/Vol] 138 mmol/L Normal 135-145 [facility] Comment on above: Performed By: #### L ACT3, MG3, BMP3, HEMDF #### [place] [address] [place] [address] CT Abdomen/Pelvis w/ Contras ton 12-05-2021 CT Abdomen/Pelvis w/ Contrast Patient Name: PATRICK KOROMA Computed Tomography ACCESSION EXAM DATE/TIME PROCEDURE ORDERING PROVIDER [id number] 12/05/2021 14:[address] Abdomen/Pelvis w/ IV [id number] -JACQUIE, Contrast (IV Onl SUZIE CPT code 82019 Q9967 Reason For Exam (CT Abdomen/Pelvis w/ IV Contrast (IV Onl) postop, worsening pain, abd swelling, TTP, bruised, c/ f seroma vs bleed vs mesh dislodgement Report EXAMINATION: CT abdomen/pelvis Indication: postop, worsening pain, abd swelling, TTP, bruised, c/f seroma vs bleed vs mesh dislodgement TECHNIQUE: Axial CT images of the abdomen/pelvis were obtained without oral and with IV contrast (75 cc Isovue 370) at 3 mm intervals. Images were acquired from the lung bases through the symphysis pubis. Coronal and sagittal reconstructions were also provided for review. FINDINGS: There is an increased density collection within the subcutaneous soft tissues of the ventral abdominal wall at and towards the right of the umbilicus which measures approximately 7.8 x 12.2 x 11.7 cm and 37 Hounsfield units. There is an additional collection deep to the ventral abdominal wall which measures 3.7 x 7.2 x 6.8 cm and approximately 12 Hounsfield units. Gallbladder is unremarkable. The solid organs in the upper abdomen are grossly unremarkable. The pelvic contents are grossly unremarkable. Mild calcification of the abdominal aorta is noted. There is no periaortic adenopathy demonstrated. There are a few scattered colonic diverticula. Otherwise, the large and small bowel are grossly unremarkable. The stomach is unremarkable. Small to moderate osteophytes of the spine are present The lung bases are grossly clear, other than minimal atelectasis. IMPRESSION: Two collections of the ventral abdominal wall, one within the superficial subcutaneous soft tissues and one deep to the abdominal musculature. The sterility of these collections is not determined on this study. The collection within the superficial soft tissues is somewhat increased in density and may contain hemorrhage versus pus. Computed Tomography Report Consider percutaneous aspiration. Report Dictated on Final Dictated: 12/05/2021 2:32 pm Dictating Physician: MD BAE KRIKOR Signed Date and Time: 12/05/2021 2:44 pm Signed by: MD BAE KRIKOR Transcribed Date and Time: 12/05/2021 2:32 Normal [facility] Hemogram w/ Autodiffon 12-05 Abs Baso Cnt 0.1 10*3/uL Normal 0.0-0.2 [facility] Comment on above: Performed By: #### L ACT3, MG3, BMP3, HEMDF #### [facility] [address] [place] [address] Abs Neutrophile Cnt 7.3 10*3/uL High 1.8-7.0 [facility] Comment on above: Performed By: #### L ACT3, MG3, BMP3, HEMDF #### [address] [address] Basophils/100 WBC (Bld) 0.7 % Normal 0.0-2.0 [facility] Comment on above: Performed By: #### L ACT3, MG3, BMP3, HEMDF #### [address] [address] Eosinophils (Bld) [#/Vol] 0.2 10*3/uL Normal 0.0-0.5 [facility] Comment on above: Performed By: #### L ACT3, MG3, BMP3, HEMDF #### [address] [address] Eosinophils/100 WBC (Bld) 2.0 % Normal 1.0-6.0 [facility] Comment on above: Performed By: #### L ACT3, MG3, BMP3, HEMDF #### [address] [address] Erythrocyte distribution width (RBC) [Ratio] 13.1 % Normal 11.5-14.5 [facility] Comment on above: Performed By: #### L ACT3, MG3, BMP3, HEMDF #### [address] [address] Granulocytes/100 WBC (Bld) 76.6 % Normal 40.0-80.0 [facility] Comment on above: Performed By: #### L ACT3, MG3, BMP3, HEMDF #### [address] [address] Hematocrit (Bld) [Volume fraction] 39.4 % Low 40.0-52.0 [facility] Comment on above: Performed By: #### L ACT3, MG3, BMP3, HEMDF #### [address] [address] Hemoglobin (Bld) [Mass/Vol] 13.6 g/dL Normal 13.0-18.0 [facility] Comment on above: Performed By: #### L ACT3, MG3, BMP3, HEMDF #### [address] [address] Lymphocytes (Bld) [#/Vol] 1.3 10*3/uL Normal 1.0-4.3 [facility] Comment on above: Performed By: #### L ACT3, MG3, BMP3, HEMDF #### [address] [address] Lymphocytes/100 WBC (Bld) 13.9 % Low 20.0-40.0 [facility] Comment on above: Performed By: #### L ACT3, MG3, BMP3, HEMDF #### [address] [address] MCH (RBC) [Entitic mass] 31.6 pg Normal 26.0-34.0 [facility] Comment on above: Performed By: #### L ACT3, MG3, BMP3, HEMDF #### [address] [address] MCHC 34.5 % Normal 32.0-36.0 [facility] Comment on above: Performed By: #### L ACT3, MG3, BMP3, HEMDF #### [address] [address] MCV (RBC) [Entitic vol] 91.7 fL Normal 80.0-98.0 [facility] Comment on above: Performed By: #### L ACT3, MG3, BMP3, HEMDF #### [address] [address] Monocytes (Bld) [#/Vol] 0.7 10*3/uL Normal 0.0-0.8 [facility] Comment on above: Performed By: #### L ACT3, MG3, BMP3, HEMDF #### [address] [address] Monocytes/100 WBC (Bld) 6.8 % Normal 2.0-10.0 [facility] Comment on above: Performed By: #### L ACT3, MG3, BMP3, HEMDF #### [address] [address] Platelet mean volume (Bld) [Entitic vol] 7.4 fL Normal 7.4-12.4 [facility] Comment on above: Result Comment: MPV is a calculated measurement using platelet volume ratio. Performed By: #### L ACT3, MG3, BMP3, HEMDF #### [address] [address] Platelets (Bld) [#/Vol] 389 10*3/uL Normal 140-440 [facility] Comment on above: Performed By: #### L ACT3, MG3, BMP3, HEMDF #### [address] [address] RBC (Bld) [#/Vol] 4.30 10*6/uL Low 4.40-5.90 [facility] Comment on above: Performed By: #### L ACT3, MG3, BMP3, HEMDF #### [address] [address] WBC (Bld) [#/Vol] 9.6 10*3/uL Normal 3.6-10.7 [facility] Comment on above: Performed By: #### L ACT3, MG3, BMP3, HEMDF #### [address] [address] Lactic Acidon 12-05-2021 Lactate [Moles/Vol] 1.1 mmol/L Normal 0.7-2.0 [facility] Comment on above: Performed By: #### L ACT3, MG3, BMP3, HEMDF #### [address] [address] Magnesiumon 12-05-2021 Magnesium [Mass/Vol] 2.2 mg/dL Normal 1.6-2.3 [facility] Comment on above: Performed By: #### L ACT3, MG3, BMP3, HEMDF #### [address] [place] [address] LABORATORYOrdered By: Sara Echeverria on 11-30-2021 Basophil, Absolute 0.2 103/mcL Invalid Interpretation Code 0.0 - 0.2 10^3/mcL AO Workflow SS Basophils/100 WBC (Bld) 1.4 % Invalid Interpretation Code 0.0 - 2.5 % AO Workflow SS Eosinophil, Absolute 0.2 103/mcL Invalid Interpretation Code 0.0 - 0.4 10^3/mcL AO Workflow SS Eosinophils/100 WBC (Bld) 2.3 % Invalid Interpretation Code 0.0 - 7.0 % AO Workflow SS Erythrocyte distribution width (RBC) [Ratio] 13.2 % Invalid Interpretation Code 11.5 - 14.5 % AO Workflow SS Hematocrit (Bld) [Volume fraction] 38.7 % Invalid Interpretation Code 42.0 - 52.0 % AO Workflow SS Hemoglobin (Bld) [Mass/Vol] 13.2 G/dL Invalid Interpretation Code 14.0 - 18.0 G/dL AO Workflow SS Lymphocyte, Absolute 2.0 103/mcL Invalid Interpretation Code 0.8 - 3.9 10^3/mcL AO Workflow SS Lymphocytes/100 WBC (Bld) 18.3 % Invalid Interpretation Code 10.0 - 50.0 % AO Workflow SS MCH (RBC) [Entitic mass] 31.3 pg Invalid Interpretation Code 27.0 - 31.2 pg AO Workflow SS MCHC 34.2 G/dL Invalid Interpretation Code 31.8 - 35.4 G/dL AO Workflow SS MCV (RBC) [Entitic vol] 91.6 fL Invalid Interpretation Code 80.0 - 94.0 fL AO Workflow SS Monocyte distribution width Auto (Bld) [Entitic vol] 18.79 Invalid Interpretation Code 0.00 - 20.00 AO Workflow SS Comment on above: Result Comment: For ED adult patients suspected of sepsis, MDW<=20.0 does not rule out sepsis or risk of sepsis Monocyte, Absolute 0.8 103/mcL Invalid Interpretation Code 0.2 - 1.0 10^3/mcL AO Workflow SS Monocytes/100 WBC (Bld) 7.1 % Invalid Interpretation Code 1.7 - 13.0 % AO Workflow SS Neutrophil, Absolute 7.6 103/mcL Invalid Interpretation Code 2.9 - 6.2 10^3/mcL AO Workflow SS Neutrophils/100 WBC (Bld) 70.9 % Invalid Interpretation Code 37.0 - 80.0 % AO Workflow SS Platelet mean volume (Bld) [Entitic vol] 7.4 fL Invalid Interpretation Code 7.4 - 10.4 fL AO Workflow SS Platelets (Bld) [#/Vol] 388 103/mcL Invalid Interpretation Code 130 - 400 10^3/mcL AO Workflow SS RBC (Bld) [#/Vol] 4.22 106/mcL Invalid Interpretation Code 4.04 - 6.13 10^6/mcL AO Workflow SS WBC 10.7 103/mcL Invalid Interpretation Code 4.6 - 10.8 10^3/mcL AO Workflow SS LABORATORYOrdered By: Hazel Gonzalez on 11-30-2021 Calcium [Mass/Vol] 9.2 mg/dL Invalid Interpretation Code 8.4 - 10.2 mg/dL AO ADM SS Chloride [Moles/Vol] 104 mmol/L Invalid Interpretation Code 98 - 107 mmol/L AO ADM SS CO2 [Moles/Vol] 26 mmol/L Invalid Interpretation Code 22 - 29 mmol/L AO ADM SS Creatinine [Mass/Vol] 0.84 mg/dL Invalid Interpretation Code 0.70 - 1.30 mg/dL AO ADM SS Electrolyte Balance 11.0 mEq/L Invalid Interpretation Code 4.0 - 15.0 mEq/L AO ADM SS Glucose [Mass/Vol] 83 mg/dL Invalid Interpretation Code 70 - 105 mg/dL AO ADM SS Potassium [Moles/Vol] 4.3 mmol/L Invalid Interpretation Code 3.5 - 5.1 mmol/L AO ADM SS Sodium [Moles/Vol] 141 mmol/L Invalid Interpretation Code 136 - 145 mmol/L AO ADM SS Urea nitrogen [Mass/Vol] 11 mg/dL Invalid Interpretation Code 7 - 18 mg/dL AO ADM SS Urea nitrogen/Creatinine [Mass ratio] 13 ratio Invalid Interpretation Code 7 - 27 ratio AO ADM SS LABORATORYOrdered By: SYSTEM SYSTEM on 11-30-2021 GFR 121 ml/min/1.73sqm Invalid Interpretation Code AO Chemistry S GFR Non- 100 ml/min/1.73sqm Invalid Interpretation Code AO Chemistry S Patient Summary Documentson 12-29-2016 Patient Summary Documents Normal [facility] Note on 12-24-2016 [place] [facility] Note Normal [facility] Patient Summary Documentson 12-23-2016 Patient Summary Documents Normal [facility] XR WRIST COMPLETE RIGHTon XR WRIST COMPLETE RIGHT ORIGINALXR WRIST COMPLETE RIGHT, 3 views CLINICAL STATEMENT: pain, injury COMPARISON: 09/13/2013 FINDINGS: No acute fracture or dislocation is identified. The joint spaces are maintained. There is no radiopaque foreign body. No significant soft tissue swelling. IMPRESSION: No acute fracture or dislocation. I have personally reviewed the images of this examination and agree with the resident's findings and interpretation. Interpreted By: Harriet Stoddard MDPreliminary Report By: Stephan Salter DOElectronically Signed By: Harriet Stoddard MD Dictated Date: 12/23/2016 4:18:58 PM Prelim Date: 12/23/2016 4:19:32 PM Sign Date: 12/23/2016 4:46:15 PM Normal [facility] Note on 12-16-2016 [place] [facility] Note Normal [facility] Patient Summary Documentson 12-16-2016 Patient Summary Documents Normal [facility] Vital Signs Date Time Vital Sign Value Performing Clinician Geovannii marva 09-19-2024 22:25-0400 Body temperature 97 [degF] Dr. Cristian Barrera DO Work Phone: [facility] 09-19-2024 22:25-0400 Diastolic blood pressure 93 mm[Hg] Dr. Cristian Tate Work Phone: [facility] 09-19-2024 22:25-0400 Heart rate 99 /min Dr. Cristian Tate Work Phone: [facility] 09-19-2024 22:25-0400 Respiratory rate 16 /min Dr. Cristian Tate Work Phone: [facility] 09-19-2024 22:25-0400 SaO2% (BldA) [Mass fraction] 97 % Dr. Cristian Tate Work Phone: [facility] 09-19-2024 22:25-0400 Systolic blood pressure 136 mm[Hg] Dr. Cristian Tate Work Phone: [facility] 09-19-2024 21:32-0400 Body mass index (BMI) [Ratio] 44.7 kg/m2 Dr. Cristian Tate Work Phone: [facility] 09-19-2024 21:32-0400 Body weight 158.[address] Cristian Tate Work Phone: [facility] 09-19-2024 21:16-0400 Body height 187.[address] Cristian Tate Work Phone: [facility] 08-24-2024 22:40-0400 Body temperature 99.1 [degF] No Primary Care Physician [facility] 08-24-2024 22:40-0400 Diastolic blood pressure 70 mm[Hg] No Primary Care Physician [facility] 08-24-2024 22:40-0400 Heart rate 80 /min No Primary Care Physician [facility] 08-24-2024 22:40-0400 Respiratory rate 16 /min No Primary Care Physician [facility] 08-24-2024 22:40-0400 SaO2% (BldA) [Mass fraction] 100 % No Primary Care Physician [facility] 08-24-2024 22:40-0400 Systolic blood pressure 118 mm[Hg] No Primary Care Physician [facility] 08-24-2024 21:04-0400 Body height 187.96 cm No Primary Care Physician [facility] 08-24-2024 21:04-0400 Body mass index (BMI) [Ratio] 44.1 kg/m2 No Primary Care Physician [facility] 08-24-2024 21:04-0400 Body weight 155.99 kg No Primary Care Physician [facility] 08-13-2024 12:44-0500 Body height 188 cm Stephon Benavides MD Work Phone: [facility] 08-13-2024 12:44-0500 Body mass index (BMI) [Ratio] 43.78 kg/m2 Stephon Benavides MD Work Phone: [facility] 08-13-2024 12:44-0500 Body weight 154.68 kg Stephon Benavides MD Work Phone: [facility] 08-13-2024 12:44-0500 Diastolic blood pressure 95 mm[Hg] Stephon Benavides MD Work Phone: [facility] 08-13-2024 12:44-0500 Heart rate 125 /min Stephon Benavides MD Work Phone: [facility] 08-13-2024 12:44-0500 Respiratory rate 16 /min Stephon Benavides MD Work Phone: [facility] 08-13-2024 12:44-0500 Systolic blood pressure 132 mm[Hg] Stephon Benavides MD Work Phone: [facility] 06-29-2024 14:07-0500 Body height 188 cm Jonathan Gonzalez MD Work Phone: [facility] 06-29-2024 14:07-0500 Body mass index (BMI) [Ratio] 43.65 kg/m2 Jonathan Gonzalez MD Work Phone: [facility] 06-29-2024 14:07-0500 Body temperature 97.81 [degF] Jonathan Gonzalez MD Work Phone: [facility] 06-29-2024 14:07-0500 Body weight 154.22 kg Jonathan Gonzalez MD Work Phone: [facility] 06-29-2024 14:07-0500 Diastolic blood pressure 94 mm[Hg] Jonathan Gonzalez MD Work Phone: [facility] 06-29-2024 14:07-0500 Heart rate 91 /min Jonathan Gonzalez MD Work Phone: [facility] 06-29-2024 14:07-0500 Respiratory rate 18 /min Jonathan Gonzalez MD Work Phone: [facility] 06-29-2024 14:07-0500 SaO2% (BldA) [Mass fraction] 97 % Jonathan Gonzalez MD Work Phone: [facility] 06-29-2024 14:07-0500 Systolic blood pressure 141 mm[Hg] Jonathan Gonzalez MD Work Phone: [facility] 05-16-2024 21:44-0500 Body temperature 98.42 [degF] NIDAL CHOUJAA DO [facility] 05-16-2024 21:44-0500 Diastolic Blood Pressure Non-Invasive 95 mm[Hg] NIDAL CHOUJAA DO [facility] 05-16-2024 21:44-0500 Heart rate 96 /min NIDAL CHOUJAA DO [facility] 05-16-2024 21:44-0500 Respiratory rate 18 /min NIDAL CHOUJAA DO [facility] 05-16-2024 21:44-0500 Systolic Blood Pressure Non-Invasive 141 mm[Hg] NIDAL CHOUJAA DO [facility] 09-16-2023 11:05-0400 Body height 188 cm Pacc 6 Work Phone: [facility] 09-16-2023 11:05-0400 Body temperature 98.49 [degF] Pacc 6 Work Phone: [facility] 09-16-2023 11:05-0400 Body weight 162.8 kg Pacc 6 Work Phone: [facility] 09-16-2023 11:05-0400 Diastolic blood pressure 86 mm[Hg] Pacc 6 Work Phone: [facility] 09-16-2023 11:05-0400 Heart rate 101 /min Pacc 6 Work Phone: [facility] 09-16-2023 11:05-0400 SaO2% (BldA) [Mass fraction] 98 % Pacc 6 Work Phone: [facility] 09-16-2023 11:05-0400 Systolic blood pressure 143 mm[Hg] Pacc 6 Work Phone: [facility] 09-11-2023 18:11-0400 Body temperature 98.06 [degF] DAVONTE Segura [facility] 09-11-2023 18:11-0400 Diastolic Blood Pressure Non-Invasive 77 mm[Hg] DAVONTE ONEILL MD [facility] 09-11-2023 18:11-0400 Heart rate 98 /min DAVONTE Segura [facility] 09-11-2023 18:11-0400 Respiratory rate 20 /min DAVONTE Segura [facility] 09-11-2023 18:11-0400 Systolic Blood Pressure Non-Invasive 151 mm[Hg] DAVONTE ONEILL MD [facility] 08-27-2023 10:45-0400 Diastolic Blood Pressure Non-Invasive 90 mm[Hg] REYES TERESA DO [facility] 08-27-2023 10:45-0400 Heart rate 94 /min REYES TERESA DO [facility] 08-27-2023 10:45-0400 Respiratory rate 20 /min REYES TERESA DO [facility] 08-27-2023 10:45-0400 Systolic Blood Pressure Non-Invasive 123 mm[Hg] REYES TERESA DO [facility] 08-27-2023 10:35-0400 Diastolic Blood Pressure Non-Invasive 90 mm[Hg] REYES TERESA DO [facility] 08-27-2023 10:35-0400 Heart rate 98 /min REYES TERESA DO [facility] 08-27-2023 10:35-0400 Respiratory rate 15 /min REYES TERESA DO [facility] 08-27-2023 10:35-0400 Systolic Blood Pressure Non-Invasive 123 mm[Hg] REYES TERESA DO [facility] 08-27-2023 10:20-0400 Body temperature 97.7 [degF] REYES TERESA DO [facility] 08-27-2023 10:20-0400 Diastolic Blood Pressure Non-Invasive 68 mm[Hg] REYES TERESA DO [facility] 08-27-2023 10:20-0400 Heart rate 88 /min REYES TERESA DO [facility] 08-27-2023 10:20-0400 Respiratory rate 14 /min REYES TERESA DO [facility] 08-27-2023 10:20-0400 Systolic Blood Pressure Non-Invasive 113 mm[Hg] REYES TERESA DO [facility] 08-27-2023 10:15-0400 Heart rate 86 /min REYES TERESA DO [facility] 08-27-2023 10:15-0400 Respiratory Rate - Anes 13 br/min REYES TERESA DO [facility] 08-27-2023 10:10-0400 Heart rate 96 /min REYES TERESA DO [facility] 08-27-2023 10:10-0400 Respiratory Rate - Anes 15 br/min REYES TERESA DO [facility] 08-27-2023 10:05-0400 Heart rate 104 /min REYES TERESA DO [facility] 08-27-2023 10:05-0400 Respiratory Rate - Anes 30 br/min REYES TERESA DO [facility] 08-27-2023 09:46-0400 Body temperature 97.7 [degF] REYES TERESA DO [facility] 08-27-2023 09:40-0400 Body height 184.5 cm REYES TERESA DO [facility] 08-27-2023 09:40-0400 Body temperature 97.7 [degF] REYES TERESA DO [facility] 08-27-2023 09:40-0400 Body weight 143.1 kg REYES TERESA DO [facility] 08-27-2023 09:40-0400 Body weight 42.04 kg/m2 REYES TERESA DO [facility] 08-06-2023 09:01-0500 Body height 188 cm Kelley Meraz APRN.BERT, DNP Work Phone: [facility] 08-06-2023 09:01-0500 Body weight 158.76 kg Kelley Meraz APRN.BERT, DNP Work Phone: [facility] 08-06-2023 09:01-0500 Diastolic blood pressure 101 mm[Hg] Kelley Meraz APRN.BERT, DNP Work Phone: [facility] 08-06-2023 09:01-0500 Heart rate 107 /min Kelley Merza APRN.BERT, DNP Work Phone: [facility] 08-06-2023 09:01-0500 SaO2% (BldA) [Mass fraction] 98 % Kelley Meraz APRN.CNP, DNP Work Phone: [facility] 08-06-2023 09:01-0500 Systolic blood pressure 153 mm[Hg] Kelley Meraz APRN.CNP, DNP Work Phone: [facility] 07-04-2023 00:20-0500 Body temperature 98.1 [degF] No Primary Care Physician [facility] 07-04-2023 00:20-0500 Diastolic blood pressure 89 mm[Hg] No Primary Care Physician [facility] 07-04-2023 00:20-0500 Heart rate 98 /min No Primary Care Physician [facility] 07-04-2023 00:20-0500 Respiratory rate 16 /min No Primary Care Physician [facility] 07-04-2023 00:20-0500 SaO2% (BldA) [Mass fraction] 96 % No Primary Care Physician [facility] 07-04-2023 00:20-0500 Systolic blood pressure 143 mm[Hg] No Primary Care Physician [facility] 07-03-2023 22:57-0500 Body height 187.96 cm No Primary Care Physician [facility] 07-03-2023 22:57-0500 Body mass index (BMI) [Ratio] 45.6 kg/m2 No Primary Care Physician [facility] 07-03-2023 22:57-0500 Body weight 161.28 kg No Primary Care Physician [facility] 06-28-2023 16:27-0500 Diastolic Blood Pressure Non-Invasive 93 mm[Hg] DR LEDY REESE MD [facility] 06-28-2023 16:27-0500 Heart rate 92 /min DR LEDY REESE MD [facility] 06-28-2023 16:27-0500 Respiratory rate 18 /min DR LEDY REESE MD [facility] 06-28-2023 16:27-0500 Systolic Blood Pressure Non-Invasive 133 mm[Hg] DR LEDY REESE MD [facility] 06-28-2023 14:04-0500 Blood Pressure Cuff Size DR LEDY REESE MD [facility] 06-28-2023 14:04-[address] LEDY REESE MD [facility] 06-28-2023 14:04-[address] LEDY REESE MD [facility] 06-28-2023 14:04-0500 Body height [address] LEDY REESE MD [facility] 06-28-2023 14:04-0500 Body temperature 97.7 [degF] DR LEDY REESE MD [facility] 06-28-2023 14:04-0500 Body weight 136.[address] LEDY REESE MD [facility] 06-28-2023 14:04-0500 Diastolic Blood Pressure Non-Invasive 89 mm[Hg] DR LEDY REESE MD [facility] 06-28-2023 14:04-0500 Heart rate 108 /min DR LEDY REESE MD [facility] 06-28-2023 14:04-0500 Respiratory rate 22 /min DR LEDY REESE MD [facility] 06-28-2023 14:04-0500 Systolic Blood Pressure Non-Invasive 141 mm[Hg] DR LEDY REESE MD [facility] 06-12-2023 09:46-0500 Body mass index (BMI) [Ratio] 44.5 kg/m2 No Primary Care Physician [facility] 06-12-2023 09:46-0500 Body temperature 97.1 [degF] No Primary Care Physician [facility] 06-12-2023 09:46-0500 Body weight 157.39 kg No Primary Care Physician [facility] 06-12-2023 09:46-0500 Diastolic blood pressure 91 mm[Hg] No Primary Care Physician [facility] 06-12-2023 09:46-0500 Heart rate 79 /min No Primary Care Physician [facility] 06-12-2023 09:46-0500 Respiratory rate 18 /min No Primary Care Physician [facility] 06-12-2023 09:46-0500 SaO2% (BldA) [Mass fraction] 100 % No Primary Care Physician [facility] 06-12-2023 09:46-0500 Systolic blood pressure 130 mm[Hg] No Primary Care Physician [facility] 06-08-2023 19:34-0500 Diastolic Blood Pressure Non-Invasive 85 mm[Hg] DR PAUL DOBSON DO [facility] 06-08-2023 19:34-0500 Heart rate 87 /min DR PAUL DOBSON DO [facility] 06-08-2023 19:34-0500 Respiratory rate 18 /min DR PAUL DOBSON DO [facility] 06-08-2023 19:34-0500 Systolic Blood Pressure Non-Invasive 146 mm[Hg] DR PAUL DOBSON DO [facility] 06-08-2023 17:51-0500 Blood Pressure Cuff Size DR PAUL DOBSON DO [facility] 06-08-2023 17:51-[address] PAUL DOBSON DO [facility] 06-08-2023 17:51-[address] PAUL DOBSON DO [facility] 06-08-2023 17:51-0500 Body temperature 98.78 [degF] DR PAUL DOBSON DO [facility] 06-08-2023 17:51-0500 Diastolic Blood Pressure Non-Invasive 80 mm[Hg] DR PAUL DOBSON DO [facility] 06-08-2023 17:51-0500 Heart rate 96 /min DR PAUL DOBSON DO [facility] 06-08-2023 17:51-0500 Respiratory rate 18 /min DR PAUL DOBSON DO [facility] 06-08-2023 17:51-0500 Systolic Blood Pressure Non-Invasive 113 mm[Hg] DR PAUL DOBSON DO [facility] 06-01-2023 01:12-0500 Body height 185.42 cm [facility] 06-01-2023 01:12-0500 Body mass index (BMI) [Ratio] 46.3 kg/m2 [facility] 06-01-2023 01:12-0500 Body temperature 98.4 [degF] [facility] 06-01-2023 01:12-0500 Body weight 159.4 kg [facility] 06-01-2023 01:12-0500 Diastolic blood pressure 96 mm[Hg] [facility] 06-01-2023 01:12-0500 Heart rate 96 /min [facility] 06-01-2023 01:12-0500 Respiratory rate 20 /min [facility] 06-01-2023 01:12-0500 SaO2% (BldA) [Mass fraction] 99 % [facility] 06-01-2023 01:12-0500 Systolic blood pressure 157 mm[Hg] [facility] 05-16-2023 22:40-0500 Diastolic Blood Pressure Non-Invasive 80 mm[Hg] TOI REICHFIELD DO [facility] 05-16-2023 22:40-0500 Heart rate 94 /min TOI REICHFIELD DO [facility] 05-16-2023 22:40-0500 Respiratory rate 18 /min TOI REICHFIELD DO [facility] 05-16-2023 22:40-0500 Systolic Blood Pressure Non-Invasive 132 mm[Hg] TOI REICHFIELD DO [facility] 05-16-2023 21:30-0500 Heart rate 98 /min TOI REICHFIELD DO [facility] 05-16-2023 21:30-0500 Respiratory rate 16 /min TOI REICHFIELD DO [facility] 05-16-2023 21:20-0500 Reason For Taking VItal Signs TOI REICHFIELD DO [facility] 05-16-2023 20:06-0500 Body height 188 cm TOI REICHFIELD DO [facility] 05-16-2023 20:06-0500 Body temperature 98.42 [degF] TOI REICHFIELD DO [facility] 05-16-2023 20:06-0500 Body weight 134.1 kg TOI REICHFIELD DO [facility] 05-16-2023 20:06-0500 Diastolic Blood Pressure Non-Invasive 85 mm[Hg] TOI REICHFIELD DO [facility] 05-16-2023 20:06-0500 Heart rate 98 /min TOI REICHFIELD DO [facility] 05-16-2023 20:06-0500 Respiratory rate 18 /min TOI REICHFIELD DO [facility] 05-16-2023 20:06-0500 Systolic Blood Pressure Non-Invasive 138 mm[Hg] TOI REICHFIELD DO [facility] 02-12-2023 20:36-0400 Diastolic Blood Pressure Non-Invasive 90 1 TOI REICHFIELD DO [facility] 02-12-2023 20:36-0400 Heart rate 77 /min TOI REICHFIELD DO [facility] 02-12-2023 20:36-0400 Reason For Taking VItal Signs TOI REICHFIELD DO [facility] 02-12-2023 20:36-0400 Respiratory rate 20 /min TOI REICHFIELD DO [facility] 02-12-2023 20:36-0400 Systolic Blood Pressure Non-Invasive 130 1 TOI REICHFIELD DO [facility] 02-12-2023 19:10-0400 Diastolic Blood Pressure Non-Invasive 92 1 TOI REICHFIELD DO [facility] 02-12-2023 19:10-0400 Heart rate 75 /min TOI REICHFIELD DO [facility] 02-12-2023 19:10-0400 Reason For Taking VItal Signs TOI REICHFIELD DO [facility] 02-12-2023 19:10-0400 Respiratory rate 18 /min TOI REICHFIELD DO [facility] 02-12-2023 19:10-0400 Systolic Blood Pressure Non-Invasive 129 1 TOI REICHFIELD DO [facility] 02-12-2023 18:15-0400 Diastolic Blood Pressure Non-Invasive 88 1 TOI REICHFIELD DO [facility] 02-12-2023 18:15-0400 Heart rate 88 /min TOI RELETICIAFIELD DO [facility] 02-12-2023 18:15-0400 Reason For Taking VItal Signs TOI LINDSEYFIELD DO [facility] 02-12-2023 18:15-0400 Respiratory rate 20 /min TOI LINDSEYFIELD DO [facility] 02-12-2023 18:15-0400 Systolic Blood Pressure Non-Invasive 137 1 TOI LINDSEYFIELD DO [facility] 02-12-2023 17:24-0400 Body temperature 98.24 [degF] TOI MARMOLEJO DO [facility] 02-12-2023 17:24-0400 Body weight 149.9 kg TOI MRAMOLEJO DO [facility] 02-12-2023 17:24-0400 Heart rate 100 /min TOI LINDSEYFIELD DO [facility] 10-28-2022 11:57-0400 Blood Pressure Cuff Size ROSHNI SCHWARZENTRAUB PA-C [facility] 10-28-2022 11:57-0400 Blood Pressure Location ROSHNI SCHWARZENTRAUB PA-C [facility] 10-28-2022 11:57-0400 Blood Pressure Method ROSHNI SCHWARZENTRAUB PA-C [facility] 10-28-2022 11:57-0400 Body height 188 cm ROSHNI SCHWARZENTRA UB PA-C [facility] 10-28-2022 11:57-0400 Body temperature 97.88 [degF] ROSHNI SCHWARZENTRA UB PA-C [facility] 10-28-2022 11:57-0400 Body weight 134.1 kg ROSHNI SCHWARZENTRA UB PA-C [facility] 10-28-2022 11:57-0400 Body weight 37.94 kg/m2 ROSHNI SCHWARZENTRA UB PA-C [facility] 10-28-2022 11:57-0400 Diastolic Blood Pressure Non-Invasive 87 1 ROSHNI SCHWARZENTRAUB PA-C [facility] 10-28-2022 11:57-0400 Heart rate 111 /min MATTAWAMKEAG SCHWARZENTRA UB PA-C [facility] 10-28-2022 11:57-0400 Respiratory rate 18 /min MATTAWAMKEAG FazlandARZENTRA UB PA-C [facility] 10-28-2022 11:57-0400 Systolic Blood Pressure Non-Invasive 132 1 ROSHNI SCHWARZENTRAUB PA-C [facility] 10-28-2022 01:45-0400 Body temperature 98.96 [degF] YARA HENSON MD [facility] 10-28-2022 01:45-0400 Diastolic Blood Pressure Non-Invasive 96 1 YARA HENSON MD [facility] 10-28-2022 01:45-0400 Heart rate 98 /min YARA HENSON MD [facility] 10-28-2022 01:45-0400 Respiratory rate 20 /min YARA HENSON MD [facility] 10-28-2022 01:45-0400 Systolic Blood Pressure Non-Invasive 143 1 YARA HENSON MD [facility] 10-21-2022 08:44-0400 Blood Pressure Cuff Size AVANILISA MCMULLENERS [employer]ASH COLLECTOR [employer]PER[employer] [facility] 10-21-2022 08:44-0400 Blood Pressure Location AVANILISA CANTOR TRASH COLLECTOR [employer]PER[employer] [facility] 10-21-2022 08:44-0400 Blood Pressure Method AVANI MCMULLENERS TRASH COLLECTOR SUPERVISOR[employer]DOOR CL[employer]ER [facility] 10-21-2022 08:44-0400 Body height 188 cm AVANI KEMIERS TRASH COLLECTOR SUPERVISOR[employer]DOOR [employer]ER [facility] 10-21-2022 08:44-0400 Body temperature 98.42 [degF] AVANI KEMIERS TRASH COLLECTOR SUPERVISOR[employer]DOOR [employer] [facility] 10-21-2022 08:44-0400 Body weight 134.1 kg AVANI KEMIERS TRASH COLLECTOR SUPERVISOR[employer]OR [employer] [facility] 10-21-2022 08:44-0400 Body weight 37.94 kg/m2 AVANI KEMIERS TRASH COLLECTOR SUPERVISOR[employer]DOOR CL[employer]ER [facility] 10-21-2022 08:44-0400 Diastolic Blood Pressure Non-Invasive 93 1 AVANI MCMULLENERS TRASH COLLECTOR SUPERVISOR[employer]DOOR CLOSER [facility] 10-21-2022 08:44-0400 Heart rate 88 /min AVANI BATERS TRASH COLLECTOR SUPERVISOR[employer]DOOR CL[employer]ER [facility] 10-21-2022 08:44-0400 Respiratory rate 18 /min AVANI BATERS TRASH COLLECTOR SUPERVISOR[employer]DOOR CLOSER [facility] 10-21-2022 08:44-0400 Systolic Blood Pressure Non-Invasive 152 1 AVANI KEMIERS TRASH COLLECTOR SUPERVISOR-DOOR CLOSER [facility] 09-12-2022 13:08-0400 Body height 188 cm ROSHNI [employer] UB PA-C [facility] 09-12-2022 13:08-0400 Body temperature 98.06 [degF] ROSHNI SCHWARZENTRA UB PA-C [facility] 09-12-2022 13:08-0400 Body weight 131.8 kg ROSHNI SCHWARZENNGN Holdings UB PA-C [facility] 09-12-2022 13:08-0400 Body weight 37.29 kg/m2 ROSHNI SCHWARZENTRA UB PA-C [facility] 09-12-2022 13:08-0400 Diastolic Blood Pressure Non-Invasive 95 1 MATTAWAMKEAG FazlandARGenerations Home RepairUB PA-C [facility] 09-12-2022 13:08-0400 Heart rate 90 /min MATTAWAMKEAG [employer]B PA-C [facility] 09-12-2022 13:08-0400 Respiratory rate 18 /min MATTAWAMKEAG FazlandARZENTRA UB PA-C [facility] 09-12-2022 13:08-0400 Systolic Blood Pressure Non-Invasive 148 1 PeeriusARZENTRAUB PA-C [facility] 09-05-2022 10:00-0400 Blood Pressure Cuff Size AVANI CANTOR TRASH COLLECTOR SUPERVISOR-DOOR CLOSER [facility] 09-05-2022 10:00-0400 Blood Pressure Location AVANI CANTOR TRASH COLLECTOR SUPERVISOR-DOOR CLOSER [facility] 09-05-2022 10:00-0400 Blood Pressure Method AVANI CANTOR TRASH COLLECTOR SUPERVISOR-DOOR CLOSER [facility] 09-05-2022 10:00-0400 Body height 188 cm AVANI CANTOR APRNUnity 4 HumanityDOOR CLOSER [facility] 09-05-2022 10:00-0400 Body temperature 98.6 [degF] AVANI CANTOR APRNUnity 4 HumanityDOOR CLOSER [facility] 09-05-2022 10:00-0400 Body weight 135 kg AVANI CANTOR [employer] [facility] 09-05-2022 10:00-0400 Body weight 38.2 kg/m2 AVANI CANTOR [employer] [facility] 09-05-2022 10:00-0400 Diastolic Blood Pressure Non-Invasive 91 1 AVANI CANTOR [employer] [facility] 09-05-2022 10:00-0400 Heart rate 88 /min AVANI CANTOR [employer] [facility] 09-05-2022 10:00-0400 Respiratory rate 18 /min AVANI CANTOR [employer] [facility] 09-05-2022 10:00-0400 Systolic Blood Pressure Non-Invasive 119 1 AVANI CANTOR [employer]NCo[employer] [facility] 08-28-2022 21:45-0400 Diastolic Blood Pressure Non-Invasive 84 1 ANJEL PEÑA DO [facility] 08-28-2022 21:45-0400 Heart rate 86 /min ANJEL PEÑA DO [facility] 08-28-2022 21:45-0400 Respiratory rate 18 /min ANJEL PEÑA DO [facility] 08-28-2022 21:45-0400 Systolic Blood Pressure Non-Invasive 136 1 ANJEL FRIAST [facility] 08-28-2022 19:06-0400 Body temperature 97.88 [degF] ANJEL RetAPPs [facility] 08-28-2022 19:06-0400 Body weight 136.4 kg ANJEL [employer] [facility] 08-28-2022 19:06-0400 Diastolic Blood Pressure Non-Invasive 84 1 ANJEL [employer] [facility] 08-28-2022 19:06-0400 Heart rate 100 /min ANJEL [employer] [facility] 08-28-2022 19:06-0400 Respiratory rate 20 /min ANJEL Ret[employer] [facility] 08-28-2022 19:06-0400 Systolic Blood Pressure Non-Invasive 141 1 ANJEL Ret[employer] [facility] 08-18-2022 15:50-0500 Diastolic Blood Pressure Non-Invasive 80 1 ANJEL [employer] [facility] 08-18-2022 15:50-0500 Heart rate 81 /min ANJEL [employer] [facility] 08-18-2022 15:50-0500 Reason For Taking VItal Signs ANJEL [employer] [facility] 08-18-2022 15:50-0500 Respiratory rate 16 /min ANJEL [employer] [facility] 08-18-2022 15:50-0500 Systolic Blood Pressure Non-Invasive 142 1 ANEJL [employer] [facility] 08-18-2022 14:01-0500 Diastolic Blood Pressure Non-Invasive 89 1 ANJEL [employer] [facility] 08-18-2022 14:01-0500 Systolic Blood Pressure Non-Invasive 142 1 ANJEL [employer] [facility] 08-18-2022 13:55-0500 Body temperature 97.88 [degF] ANJEL [id number] [facility] 08-18-2022 13:55-0500 Diastolic Blood Pressure Non-Invasive 86 1 ANJEL PEÑA [employer] [facility] 08-18-2022 13:55-0500 Heart rate 87 /min ANJEL [id number] [facility] 08-18-2022 13:55-0500 Respiratory rate 12 /min ANJEL PEÑA [employer] [facility] 08-18-2022 13:55-0500 Systolic Blood Pressure Non-Invasive 161 1 ANJEL PEÑA DO [facility] 08-18-2022 11:32-0500 Body temperature 98.42 [degF] ANJEL [id number] [facility] 08-18-2022 11:32-0500 Body weight 153.5 kg ANJEL [id number] [facility] 08-18-2022 11:32-0500 Heart rate 96 /min ANJEL [id number] [facility] 08-18-2022 11:32-0500 Respiratory rate 18 /min ANJEL [id number] [facility] 07-22-2022 13:54-0500 Diastolic Blood Pressure Non-Invasive 83 1 BLANCO SHAW MD [facility] 07-22-2022 13:54-0500 Heart rate 86 /min BLANCO SHAW MD [facility] 07-22-2022 13:54-0500 Respiratory rate 16 /min BLANCO SHAW MD [facility] 07-22-2022 13:54-0500 Systolic Blood Pressure Non-Invasive 135 1 BLANCO SHAW MD [facility] 07-22-2022 12:30-0500 Diastolic Blood Pressure Non-Invasive 89 1 BLANCO SHAW MD [facility] 07-22-2022 12:30-0500 Heart rate 91 /min BLANCO SHAW MD [facility] 07-22-2022 12:30-0500 Respiratory rate 16 /min BLANCO SHAW MD [facility] 07-22-2022 12:30-0500 Systolic Blood Pressure Non-Invasive 136 1 BLANCO SHAW MD [facility] 07-22-2022 11:30-0500 Diastolic Blood Pressure Non-Invasive 84 1 BLANCO SHAW MD [facility] 07-22-2022 11:30-0500 Heart rate 100 /min BLANCO SHAW MD [facility] 07-22-2022 11:30-0500 Respiratory rate 20 /min BLANCO SHAW MD [facility] 07-22-2022 11:30-0500 Systolic Blood Pressure Non-Invasive 142 1 BLANCO SHAW MD [facility] 07-22-2022 10:12-0500 Body height 188 cm BLANCO SHAW MD [facility] 07-22-2022 10:12-0500 Body temperature 98.96 [degF] BLANCO SHAW MD [facility] 07-22-2022 10:12-0500 Body weight 132 kg BLANCO SHAW MD [facility] 07-18-2022 14:20-0500 Diastolic Blood Pressure Non-Invasive 95 1 AARON DUQUE MD [facility] 07-18-2022 14:20-0500 Heart rate 99 /min AARON DUQUE MD [facility] 07-18-2022 14:20-0500 Respiratory rate 16 /min AARON DUQUE MD [facility] 07-18-2022 14:20-0500 Systolic Blood Pressure Non-Invasive 130 1 AARON DUQUE MD [facility] 07-18-2022 13:50-0500 Diastolic Blood Pressure Non-Invasive 88 1 AARON DUQUE MD [facility] 07-18-2022 13:50-0500 Heart rate 105 /min AARON DUQUE MD [facility] 07-18-2022 13:50-0500 Respiratory rate 16 /min AARON DUQUE MD [facility] 07-18-2022 13:50-0500 Systolic Blood Pressure Non-Invasive 137 1 AARON DUQUE MD [facility] 07-18-2022 13:20-0500 Diastolic Blood Pressure Non-Invasive 77 1 AARON DUQUE MD [facility] 07-18-2022 13:20-0500 Heart rate 104 /min AARON DUQUE MD [facility] 07-18-2022 13:20-0500 Respiratory rate 16 /min AARON DUQUE MD [facility] 07-18-2022 13:20-0500 Systolic Blood Pressure Non-Invasive 144 1 AARON DUQUE MD [facility] 07-18-2022 13:15-0500 Heart rate 99 /min AARON DUQUE MD [facility] 07-18-2022 13:00-0500 Heart rate 102 /min AARON DUQUE MD [facility] 07-18-2022 11:28-0500 Body temperature 97.88 [degF] AARON DUQUE MD [facility] 07-18-2022 11:25-0500 Respiratory Rate - Anes 0 br/min AARON DUQUE MD [facility] 07-18-2022 11:20-0500 Respiratory Rate - Anes 0 br/min AARON DUQUE MD [facility] 07-18-2022 11:15-0500 Respiratory Rate - Anes 10 br/min AARON DUQUE MD [facility] 07-18-2022 06:48-0500 Body height 188 cm AARON DUQUE MD [facility] 07-18-2022 06:48-0500 Body temperature 98.96 [degF] AARON DUQUE MD [facility] 07-18-2022 06:48-0500 Body weight 134 kg AARON DUQUE MD [facility] 07-18-2022 06:48-0500 Heart rate 99 /min AARON DUQUE MD [facility] 07-15-2022 01:50-0500 Diastolic Blood Pressure Non-Invasive 79 1 DAVONTE ONEILL MD [facility] 07-15-2022 01:50-0500 Heart rate 93 /min DAVONTE LYREN-SONDLES M D [facility] 07-15-2022 01:50-0500 Respiratory rate 15 /min DAVONTE LYREN-SONDLES M D [facility] 07-15-2022 01:50-0500 Systolic Blood Pressure Non-Invasive 124 1 DAVONTE ONEILL MD [facility] 07-15-2022 00:30-0500 Body temperature 97.88 [degF] DAVONTE Beaver D [facility] 07-15-2022 00:30-0500 Diastolic Blood Pressure Non-Invasive 91 1 DAVONTE ONEILL MD [facility] 07-15-2022 00:30-0500 Heart rate 101 /min DAVONTE LYREN-SONDLES M D [facility] 07-15-2022 00:30-0500 Respiratory rate 18 /min DAVONTE LYREN-SONDLES M D [facility] 07-15-2022 00:30-0500 Systolic Blood Pressure Non-Invasive 152 1 DAVONTE ONEILL MD [facility] 07-09-2022 13:12-0500 Blood Pressure Cuff Size AARON DUQUE MD [facility] 07-09-2022 13:12-0500 Blood Pressure Location AARON DUQUE MD [facility] 07-09-2022 13:12-0500 Blood Pressure Method AARON DUQUE MD [facility] 07-09-2022 13:12-0500 Body height 188 cm AARON DUQUE MD [facility] 07-09-2022 13:12-0500 Body weight 134.1 kg AARON DUQUE MD [facility] 07-09-2022 13:12-0500 Body weight 37.94 kg/m2 AARON DUQUE MD [facility] 07-09-2022 13:12-0500 Diastolic Blood Pressure Non-Invasive 82 1 AARON DUQUE MD [facility] 07-09-2022 13:12-0500 Heart rate 91 /min AARON DUQUE MD [facility] 07-09-2022 13:12-0500 Systolic Blood Pressure Non-Invasive 122 1 AARON DUQUE MD [facility] 06-27-2022 23:59-0500 Diastolic Blood Pressure Non-Invasive 75 1 YARA HENSON MD [facility] 06-27-2022 23:59-0500 Heart rate 85 /min YARA HENSON MD [facility] 06-27-2022 23:59-0500 Reason For Taking VItal Signs YARA HENSON MD [facility] 06-27-2022 23:59-0500 Respiratory rate 18 /min YARA HENSON MD [facility] 06-27-2022 23:59-0500 Systolic Blood Pressure Non-Invasive 130 1 YARA HENSON MD [facility] 06-27-2022 21:38-0500 Body temperature 97.52 [degF] YARA HENSON MD [facility] 06-27-2022 21:38-0500 Diastolic Blood Pressure Non-Invasive 100 1 YARA HENSON MD [facility] 06-27-2022 21:38-0500 Heart rate 105 /min YARA HENSON MD [facility] 06-27-2022 21:38-0500 Respiratory rate 24 /min YARA HENSON MD [facility] 06-27-2022 21:38-0500 Systolic Blood Pressure Non-Invasive 157 1 YARA HENSON MD [facility] 06-19-2022 19:36-0500 Body temperature 99.1 [degF] [facility] 06-19-2022 19:36-0500 Diastolic blood pressure 87 mm[Hg] [facility] 06-19-2022 19:36-0500 Heart rate 110 /min [facility] 06-19-2022 19:36-0500 Respiratory rate 18 /min [facility] 06-19-2022 19:36-0500 SaO2% (BldA) [Mass fraction] 96 % [facility] 06-19-2022 19:36-0500 Systolic blood pressure 126 mm[Hg] [facility] 06-01-2022 00:00-0500 Diastolic Blood Pressure Non-Invasive 88 1 YARA HENSON MD [facility] 06-01-2022 00:00-0500 Heart rate 85 /min YARA HENSON MD [facility] 06-01-2022 00:00-0500 Respiratory rate 16 /min YARA HENSON MD [facility] 06-01-2022 00:00-0500 Systolic Blood Pressure Non-Invasive 125 1 YARA HENSON MD [facility] 05-31-2022 21:41-0500 Body height 190.5 cm YARA HENSON MD [facility] 05-31-2022 21:41-0500 Body temperature 97.88 [degF] YARA HENSON MD [facility] 05-31-2022 21:41-0500 Body weight 127.3 kg YARA HENSON MD [facility] 05-31-2022 21:41-0500 Diastolic Blood Pressure Non-Invasive 89 1 YARA HENSON MD [facility] 05-31-2022 21:41-0500 Heart rate 90 /min YARA HENSON MD [facility] 05-31-2022 21:41-0500 Respiratory rate 18 /min YARA HENSON MD [facility] 05-31-2022 21:41-0500 Systolic Blood Pressure Non-Invasive 127 1 YARA HENSON MD [facility] 05-27-2022 18:03-0500 Body height 180.[address] ABDI AGUIRRE MD [facility] 05-27-2022 18:03-0500 Body temperature 98.96 [degF] DR ABDI AGUIRRE MD [facility] 05-27-2022 18:03-0500 Body weight 127.[address] ABDI AGUIRRE MD [facility] 05-27-2022 18:03-0500 Diastolic Blood Pressure Non-Invasive [address] ABDI AGUIRRE MD [facility] 05-27-2022 18:03-0500 Heart rate 118 /min DR ABDI AGUIRRE MD [facility] 05-27-2022 18:03-0500 Respiratory rate 20 /min DR ABDI AGUIRRE MD [facility] 05-27-2022 18:03-0500 Systolic Blood Pressure Non-Invasive [address] ABDI AGUIRRE MD [facility] 04-25-2022 17:56-0500 Diastolic blood pressure 98 mm[Hg] [facility] [employer] [facility] [employer] 04-25-2022 17:56-0500 Heart rate 90 /min [facility] [employer] [facility] [employer] 04-25-2022 17:56-0500 Respiratory rate 18 /min [email or web address] [employer] 04-25-2022 17:56-0500 SaO2% (BldA) [Mass fraction] 100 % [email or web address] [employer] 04-25-2022 17:56-0500 Systolic blood pressure 156 mm[Hg] [email or web address] [employer] 04-25-2022 15:04-0500 Body height 188 cm [email or web address] [employer] 04-25-2022 15:04-0500 Body mass index (BMI) [Ratio] 34.67 kg/m2 [email or web address] [employer] 04-25-2022 15:04-0500 Body temperature 97.11 [degF] [facility] [employer] 04-25-2022 15:04-0500 Body weight 122.47 kg [email or web address] [employer] 04-03-2022 14:31-0400 Diastolic blood pressure 90 mm[Hg] Pcp No [facility] [employer] [facility] [employer] 04-03-2022 14:31-0400 Heart rate 100 /min Pcp No [facility] [employer] [facility] [employer] 04-03-2022 14:31-0400 Respiratory rate 16 /min Pcp No [facility] [employer] 04-03-2022 14:31-0400 SaO2% (BldA) [Mass fraction] 100 % Pcp No [facility] [employer] [facility] [employer] 04-03-2022 14:31-0400 Systolic blood pressure 140 mm[Hg] Pcp No [email or web address] [employer] 04-03-2022 14:14-0400 Body temperature 98.2 [degF] [facility] Reny [facility] 03-15-2022 00:52-0400 Diastolic blood pressure 75 mm[Hg] JORGITO CANNON DO [facility] 03-15-2022 00:52-0400 Heart rate 97 /min JORGITO CANNON DO [facility] 03-15-2022 00:52-0400 Respiratory rate 16 /min JORGITO CANNON DO [facility] 03-15-2022 00:52-0400 Systolic blood pressure 121 mm[Hg] JORGITO CANNON DO [facility] 03-14-2022 22:56-0400 Body temperature 98.24 [degF] JORGITO CANNON DO [facility] 03-14-2022 22:56-0400 Diastolic blood pressure 81 mm[Hg] JORGITO CANNON DO [facility] 03-14-2022 22:56-0400 Heart rate 107 /min JORGITO CANNON DO [facility] 03-14-2022 22:56-0400 Respiratory rate 18 /min JORGITO CANNON DO [facility] 03-14-2022 22:56-0400 Systolic blood pressure 119 mm[Hg] JORGITO CANNON DO [facility] 03-08-2022 00:57-0400 Body temperature 98.29 [degF] Giles Darrion DO Work Phone: [facility] 03-08-2022 00:57-0400 Diastolic blood pressure 89 mm[Hg] Giles Darrion DO Work Phone: [facility] 03-08-2022 00:57-0400 Heart rate 100 /min Giles Darrion DO Work Phone: [facility] 03-08-2022 00:57-0400 Respiratory rate 18 /min Giles Darrion DO Work Phone: [facility] 03-08-2022 00:57-0400 SaO2% (BldA) [Mass fraction] 98 % Giles Darrion DO Work Phone: [facility] 03-08-2022 00:57-0400 Systolic blood pressure 134 mm[Hg] Giles Darrion DO Work Phone: [facility] 01-03-2022 09:42-0400 Body height 185.4 cm Ibrahima Schaefer MD Work Phone: [facility] 01-03-2022 09:42-0400 Body temperature 98.29 [degF] Ibrahima Schaefer MD Work Phone: [facility] 01-03-2022 09:42-0400 Body weight 144.7 kg Ibrahima Schaefer MD Work Phone: [facility] 01-03-2022 09:42-0400 Diastolic blood pressure 76 mm[Hg] Ibrahima Schaefer MD Work Phone: [facility] 01-03-2022 09:42-0400 Heart rate 102 /min Ibrahima Schaefer MD Work Phone: [facility] 01-03-2022 09:42-0400 Respiratory rate 18 /min Ibrahima Schaefer MD Work Phone: [facility] 01-03-2022 09:42-0400 SaO2% (BldA) [Mass fraction] 97 % Ibrahima Schaefer MD Work Phone: [facility] 01-03-2022 09:42-0400 Systolic blood pressure 124 mm[Hg] Ibrahima Schaefer MD Work Phone: [facility] 01-01-2022 20:51-0400 Diastolic blood pressure 86 mm[Hg] [facility] Work Phone: 01-01-2022 20:51-0400 Heart rate 83 /min [facility] Work Phone: 01-01-2022 20:51-0400 Respiratory rate 18 /min [facility] Work Phone: 01-01-2022 20:51-0400 SaO2% (BldA) [Mass fraction] 100 % [facility] Work Phone: 01-01-2022 20:51-0400 Systolic blood pressure 133 mm[Hg] [facility] Work Phone: 01-01-2022 17:58-0400 Body height 185.42 cm [facility] Work Phone: 01-01-2022 17:58-0400 Body mass index (BMI) [Ratio] 42.1 kg/m2 [facility] Work Phone: 01-01-2022 17:58-0400 Body temperature 98.1 [degF] [facility] Work Phone: 01-01-2022 17:58-0400 Body weight 145 kg [facility] Work Phone: 12-21-2021 22:34-0400 Diastolic blood pressure 83 mm[Hg] ANJEL [email or web address] [facility] 12-21-2021 22:34-0400 Heart rate 77 /min ANJEL [email or web address] [facility] 12-21-2021 22:34-0400 Reason For Taking VItal Signs ANJEL [email or web address] [facility] 12-21-2021 22:34-0400 Respiratory rate 20 /min ANJEL TIMOneMln [facility] 12-21-2021 22:34-0400 Systolic blood pressure 138 mm[Hg] ANJEL TIMOneMln [facility] 12-21-2021 21:27-0400 Diastolic blood pressure 93 mm[Hg] ANJEL FRIAST DO [facility] 12-21-2021 21:27-0400 Heart rate 87 /min ANJEL FROMMELT DO [facility] 12-21-2021 21:27-0400 Reason For Taking VItal Signs ANJEL FROMMELT DO [facility] 12-21-2021 21:27-0400 Respiratory rate 20 /min ANJEL FROMMELT DO [facility] 12-21-2021 21:27-0400 Systolic blood pressure 144 mm[Hg] ANJEL FROMMELT DO [facility] 12-21-2021 20:43-0400 Body temperature 99.14 [degF] ANJEL TIMMELT DO [facility] 12-21-2021 20:43-0400 Diastolic blood pressure 89 mm[Hg] ANJEL TIMMELT DO [facility] 12-21-2021 20:43-0400 Heart rate 96 /min ANJEL TIMMELT DO [facility] 12-21-2021 20:43-0400 Respiratory rate 22 /min ANJEL TIMMELT DO [facility] 12-21-2021 20:43-0400 Systolic blood pressure 172 mm[Hg] ANJEL TIMMELT DO [facility] 11-30-2021 20:30-0400 Diastolic blood pressure 82 mm[Hg] YARA HENSON MD [facility] 11-30-2021 20:30-0400 Heart rate 78 /min YARA HENSON MD [facility] 11-30-2021 20:30-0400 Mean blood pressure 101 mm[Hg] YARA EHNSON MD [facility] 11-30-2021 20:30-0400 Respiratory rate 18 /min YARA HENSON MD [facility] 11-30-2021 20:30-0400 Systolic blood pressure 140 mm[Hg] YARA HENSON MD [facility] 11-30-2021 19:12-0400 Body temperature 98.06 [degF] YARA HENSON MD [facility] 11-30-2021 19:12-0400 Diastolic blood pressure 89 mm[Hg] YARA HENSON MD [facility] 11-30-2021 19:12-0400 Heart rate 87 /min YARA HENSON MD [facility] 11-30-2021 19:12-0400 Respiratory rate 18 /min YARA HENSON MD [facility] 11-30-2021 19:12-0400 Systolic blood pressure 148 mm[Hg] YARA HENSON MD [facility] 11-14-2021 13:10-0400 Body height 185.4 cm AARON DUQUE MD [facility] 11-14-2021 13:10-0400 Body weight 140.9 kg AARON DUQUE MD [facility] 11-14-2021 13:10-0400 Body weight 40.99 kg/m2 AARON DUQUE MD [facility] 11-14-2021 13:10-0400 diastolic 74 mm[Hg] AARON DUQUE MD [facility] 11-14-2021 13:10-0400 Heart rate 103 /min AARON DUQUE MD [facility] 11-14-2021 13:10-0400 systolic 128 mm[Hg] AARON DUQUE MD [facility] 10-06-2021 14:52-0400 Body temperature 98.96 [degF] ASHLYN BLISS MD [facility] 10-06-2021 14:52-0400 Diastolic blood pressure 89 mm[Hg] ASHLYN BLISS MD [facility] 10-06-2021 14:52-0400 Heart rate 112 /min ASHLYN BLISS MD [facility] 10-06-2021 14:52-0400 Respiratory rate 18 /min ASHLYN BLISS MD [facility] 10-06-2021 14:52-0400 Systolic blood pressure 148 mm[Hg] ASHLYN BLISS MD [facility] Encounters Encounter Date Encounter Type Care Provider Facility Start: 09-19-2024 End: 09-19-2024 Emergency department patient visit Dr. Cristian Barrera DO Work Phone: -Emergency Department Work Phone: Start: 09-08-2024 End: 09-08-2024 ambulatory VIOLA STARKEY [employer] Facility:[facility] Start: 09-07-2024 End: 09-08-2024 Emergency department patient visit SHANIKA RICHARDMOUNA Facility:[facility] Start: 08-24-2024 End: 08-24-2024 Emergency department patient visit No Primary Care Physician -Emergency Department Work Phone: Start: 08-13-2024 End: 08-13-2024 Office outpatient new 45 minutes Stephon Benavides MD Work Phone: [facility] Comment on above: History of abdominal hernia Start: 06-29-2024 End: 06-29-2024 Subsequent hospital visit by physician Rad External Film EF RAD EXTERNAL FILM VIRTUAL Comment on above: Arrived Start: 06-29-2024 End: 06-29-2024 Office outpatient new 45 minutes Jonathan Gonzalez MD Work Phone: [facility] Comment on above: Periumbilical abdomi nal pain (Primary Dx); History of abdominal hernia Start: 05-16-2024 End: 05-16-2024 Emergency department patient visit RADHA AFRICACesar PLATA [facility] Start: 02-24-2024 End: 02-25-2024 Emergency department patient visit Guevara Choi Facility:[facility] Start: 10-10-2023 Telephone encounter Juliocesar Borrero MD, PhD Work Phone: [facility] [place] Comment on above: Care Coordination Left lateral abdomin al pain (Primary Dx) Start: 10-07-2023 End: 10-07-2023 Evaluation and management of inpatient JESE RICHARDSON Facility:[facility] Start: 10-07-2023 Orders Only Jese Richardson MD Work Phone: General Surgery Comment on above: Left lower quadrant abdominal pain (Primary Dx) Start: 09-16-2023 Encounter for other preprocedural examination JESE RICHARDSON [facility] Start: 09-16-2023 End: 09-17-2023 ambulatory JESE DARBY JORDANALYSSA Facility:[facility] Start: 09-16-2023 Encounter for other preprocedural examination JESE RICHARDSON [facility] Start: 09-16-2023 End: 09-17-2023 ambulatory JESE DARBY DYLAN Facility:[facility] Start: 09-16-2023 End: 09-16-2023 PAT Pacc Main 6 Work Phone: Pre Anesthesia Comment on above: Pre-op evaluation (P rimary Dx); Post traumatic seizure disorder (HCC); Morbid obesity (HCC); Tobacco use Start: 09-16-2023 End: 09-16-2023 Preprocedural examination done Pacc Main 6 Work Phone: [facility] Work Phone: Start: 09-11-2023 End: 09-11-2023 Emergency department patient visit DAVONTE ONEILL MD Facility:B Start: 09-11-2023 End: 09-11-2023 Emergency department patient visit DAVONTE ONEILL MD [facility] Start: 08-27-2023 End: 08-27-2023 ambulatory VIOLA STARKEY APRN-DOOR CLOSER Facility:B Start: 08-27-2023 End: 08-27-2023 Minor Procedure REYES MOORE DO [facility] Start: 08-06-2023 End: 08-06-2023 ambulatory LINDA GRIFFITHS Facility:[facility] Start: 08-06-2023 End: 08-06-2023 Patient encounter procedure Kelley Meraz TRASH COLLECTOR SUPERVISOR.DOOR CLOSER, DNP Work Phone: Neurology Pain Comment on above: Abdominal pain, unsp ecified abdominal location (Primary Dx) Start: 07-21-2023 ambulatory Jese Richardson MD Work Phone: [facility] Comment on above: 4.23.24 Cure (Resect ion of Mesh 2 hours los 0) Start: 07-21-2023 Preprocedural examination done Jese Richardson MD Work Phone: [facility] Start: 07-18-2023 Orders Only Linda Griffiths TRASH COLLECTOR SUPERVISOR.DOOR CLOSER Work Phone: General Surgery Comment on above: Left lower quadrant abdominal pain (Primary Dx) Start: 07-07-2023 End: 07-08-2023 ambulatory JESE RICHARDSON Facility:[facility] Start: 07-03-2023 End: 07-04-2023 Emergency department patient visit No Primary Care Physician [facility] Department Work Phone: Start: 06-28-2023 End: 06-28-2023 Emergency department patient visit DR LEDY REESE MD Facility:B Start: 06-28-2023 End: 06-28-2023 Emergency department patient visit DR LEDY REESE MD [facility] Start: 06-12-2023 End: 06-12-2023 Patient encounter procedure No Primary Care Physician [facility] Work Phone: Start: 06-08-2023 End: 06-08-2023 Emergency department patient visit PAUL DOBSON Facility:B Start: 06-08-2023 End: 06-08-2023 Emergency department patient visit DR PAUL DOBSON DO [facility] Start: 06-01-2023 End: 06-01-2023 Emergency department patient visit [facility] Work Phone: Start: 05-17-2023 End: 05-18-2023 ambulatory TOI MARMOLEJO DO Facility:B Start: 05-16-2023 End: 05-17-2023 Emergency department patient visit TOI MARMOLEJO DO Facility:B Start: 05-16-2023 End: 05-16-2023 Emergency department patient visit TOI MARMOLEJO DO [facility] Start: 02-23-2023 End: 02-23-2023 Emergency department patient visit [facility] Start: 02-12-2023 End: 02-12-2023 Emergency department patient visit TOI MARMOLEJO DO Facility:B Start: 02-12-2023 End: 02-12-2023 Emergency department patient visit TOI MARMOLEJO DO [facility] Start: 10-28-2022 End: 10-29-2022 ambulatory ROSHNI FLORES PA-C Facility:A Start: 10-28-2022 End: 10-28-2022 Patient encounter procedure ROSHNI FLORES PA-C [facility] Start: 10-28-2022 End: 10-28-2022 Emergency department patient visit YARA HENSON MD Facility:B Start: 10-28-2022 End: 10-28-2022 Emergency department patient visit YARA HENSON MD [facility] Start: 10-21-2022 End: 10-22-2022 ambulatory AVANI CANTOR TRASH COLLECTOR SUPERVISOR-DOOR CLOSER Facility:A Start: 10-21-2022 End: 10-21-2022 Patient encounter procedure AVANI CANTOR TRASH COLLECTOR SUPERVISOR-DOOR CLOSER [facility] Start: 10-20-2022 End: 10-20-2022 Emergency department patient visit DR LEDY REESE MD Facility:B Start: 09-12-2022 End: 09-12-2022 Patient encounter procedure ROSHNI FLORES PA-C [facility] Start: 09-05-2022 End: 09-05-2022 Patient encounter procedure AVANI CANTOR TRASH COLLECTOR SUPERVISOR-DOOR CLOSER [facility] Start: 08-28-2022 End: 08-28-2022 Emergency department patient visit [facility] Start: 08-18-2022 End: 08-18-2022 Emergency department patient visit [facility] Start: 07-22-2022 End: 07-22-2022 Emergency department patient visit BLANCO SHAW MD [facility] Start: 07-18-2022 End: 07-18-2022 SAME DAY STAY AARON DUQUE MD [facility] Start: 07-15-2022 End: 07-15-2022 Emergency department patient visit DAVONTE ONEILL MD [facility] Start: 07-09-2022 End: 07-09-2022 Admission to establishment AARON DUQUE MD [facility] Start: 06-27-2022 End: 06-28-2022 Emergency department patient visit YARA HENSON MD [facility] Start: 06-19-2022 End: 06-20-2022 Emergency department patient visit [facility] ED Comment on above: Seizure (CMS/HCC) (H CC) (Primary Dx) Start: 06-09-2022 End: 06-10-2022 Emergency department patient visit PHYSICIAN NO [facility] Start: 06-06-2022 End: 06-06-2022 Emergency department patient visit PHYSICIAN [facility] Start: 05-31-2022 End: 06-01-2022 Emergency department patient visit YARA HENSON MD [facility] Start: 05-27-2022 End: 05-27-2022 Emergency department patient visit DR ABDI AGUIRRE MD [facility] Start: 05-22-2022 End: 05-23-2022 Emergency department patient visit PATRICK PLATA [facility] Start: 04-25-2022 End: 04-25-2022 Emergency department patient visit PCP [facility] Start: 04-25-2022 End: 04-25-2022 Emergency department patient visit [facility] Emergency Department Comment on above: Acute pain of right shoulder (Primary Dx); Strain of right shoulder, initial encounter Start: 04-03-2022 End: 04-03-2022 Emergency department patient visit PCP NO [facility] Start: 04-03-2022 End: 04-03-2022 Emergency department patient visit Pcp No [facility] Emergency Department Comment on above: Injury of right wris t, initial encounter (Primary Dx) Start: 03-14-2022 End: 03-15-2022 Emergency department patient visit JORGITO CANNON DO [facility] Start: 03-08-2022 End: 03-08-2022 Emergency department patient visit UNKNOWN PROVIDER [facility] Start: 03-08-2022 End: 03-08-2022 Emergency department patient visit Giles Maier DO Work Phone: [facility] ED Comment on above: Closed head injury, initial encounter (Primary Dx) Start: 01-03-2022 End: 01-03-2022 Patient encounter procedure Ibrahima Schaefer MD Work Phone: General Surgery Comment on above: Hematoma (Primary Dx ); Incisional hernia, without obstruction or gangrene Start: 01-01-2022 End: 01-01-2022 Emergency department patient visit [facility] Start: 12-21-2021 End: 12-21-2021 Emergency department patient visit ANJEL FRIASSolis DO [facility] Start: 11-30-2021 End: 11-30-2021 Emergency department patient visit YARA HENSON MD [facility] Start: 11-14-2021 End: 11-14-2021 Admission to establishment AARON DUQUE MD [facility] Start: 10-26-2021 End: 10-26-2021 Patient encounter procedure TRU TOUSSAINT TRASH COLLECTOR SUPERVISOR-DOOR CLOSER [facility] Start: 10-06-2021 End: 10-06-2021 Emergency department patient visit ASHLYN BLISS MD [facility] Start: 12-23-2016 End: 12-23-2016 Emergency department patient visit MILDRED GALLARDO Facility:[facility] Start: 12-16-2016 End: 12-16-2016 Emergency department patient visit JOSH Randi HELTON Facility:[facility] Procedures Date Procedure Procedure Detail Performing Clinician Start: 09-19-2024 Plain X-ray of clavicle Dr. Cristian Barrera DO Work Phone: Start: 09-19-2024 Plain X-ray of shoulder Dr. Cristian Barrera DO Work Phone: Start: 08-24-2024 Plain X-ray of shoulder No Primary Care Physician Start: 06-29-2024 Study Interpretation of outside study Jonathan Gonzalez MD Work Phone: Start: 09-16-2023 Antibody screen JESE B EFFA Comment on above: Order Comment: Speci men Type: BLOOD SPECIMEN Ordering Facility: [facility] Address: [address] [place] [address] Performed By: #### T [id number] #### [facility] CLIA [id number] [place] [address] [place] Start: 08-27-2023 Colonoscopy REYES MOORE DO Start: 06-01-2023 CT of abdomen and pe lvis without contrast Start: 07-18-2022 Laparoscopic repair of recurrent umbilical hernia using synthetic mesh ANJEL EPÑA DO Comment on above: OPEN REPAIR OF RECUR RENT PERIUMBILICAL HERNIA WITH ANTERIOR COMPONENT SEPARATION WITH ONLAY MESH REPAIR Start: 07-18-2022 Umbilical hernia (disorder) AARON DUQUE MD Comment on above: open repair of recur rent periumbilical hernia with component separation Start: 06-19-2022 Basic metabolic pane l calcium total Kyree REYES Work Phone: Start: 06-19-2022 Drug assay carbamaze pine total Kyree REYES Work Phone: Start: 04-25-2022 Radex shoulder compl ete minimum 2 views PCP NO Start: 04-25-2022 [facility] SUPPLIES PCP NO Start: 04-25-2022 Radex shoulder compl ete minimum 2 views Julianna REYES Work Phone: Start: 04-03-2022 APPLY DIEGO WRAP PCP NO Start: 04-03-2022 Radex wrist complete minimum 3 views PCP NO Start: 04-03-2022 Radex wrist complete minimum 3 views Julianna REYES Work Phone: Start: 03-08-2022 Ct cervical spine w/ o contrast material Giles Darrion DO Work Phone: Start: 03-08-2022 Ct head/brain w/o co ntrast material Giles Darrion DO Work Phone: Start: 01-01-2022 Computed tomography of abdomen and pelvis with contrast Start: 11-22-2021 Repair of recurrent ventral hernia YARA HENSON MD Start: 06-16-2018 History of repair of umbilical hernia TRU REYESKIN TRASH COLLECTOR SUPERVISOR-DOOR CLOSER Start: 08-29-2017 Adult depression scr eening assessment Ibrahima Schaefer MD Work Phone: Start: 11-12-2016 Lipid 1996 panel - S luigi or Plasma Linda Griffiths TRASH COLLECTOR SUPERVISOR.DOOR CLOSER Work Phone: Appendectomy ASHLYN Segura Drain, device (physi mary alice object) AVANI CANTOR TRASH COLLECTOR SUPERVISOR-DOOR CLOSER Comment on above: placed and removed x 3 Plan of Treatment Date Care Activity Detail Author Start: 2029 Zoster Vaccines (1 of 2) Zoste r Vaccines (1 of 2) [facility] Start: 08-24-2024 [facility] Start: 02-15-2024 COVID-19 Vaccine ( season) COVID-19 Vaccine ( season) [facility] Start: 02-15-2024 Influenza vaccination C [facility] Start: 07-21-2023 End: 07-21-2024 aPTT in Platelet poor plasma by Coagulation assay ACTIVATED PTT Lab Routine Preoperative examination Infected hernioplasty mesh, sequela Expected: 07/21/2023, Expires: 07/21/2024 [facility] Work Phone: Comment on above: Expected: 07/21/2023 , Expires: 07/21/2024 Start: 07-21-2023 End: 07-21-2024 CBC W Auto Differential panel - Blood CBC + DIFF Lab Routine Preoperative examination Infected hernioplasty mesh, sequela Expected: 07/21/2023, Expires: 07/21/2024 [facility] Work Phone: Comment on above: Expected: 07/21/2023 , Expires: 07/21/2024 Start: 07-21-2023 End: 07-21-2024 Comprehensive metabolic 2000 panel - Serum or Plasma COMP METABOLIC PANEL Lab Routine Preoperative examination Infected hernioplasty mesh, sequela Expected: 07/21/2023, Expires: 07/21/2024 [facility] Work Phone: Comment on above: Expected: 07/21/2023 , Expires: 07/21/2024 Start: 07-21-2023 End: 07-21-2024 PT panel - Platelet poor plasma by Coagulation assay PROTHROMBIN TIME/PT Lab Routine Preoperative examination Infected hernioplasty mesh, sequela Expected: 07/21/2023, Expires: 07/21/2024 [facility] Work Phone: Comment on above: Expected: 07/21/2023 , Expires: 07/21/2024 Start: 07-21-2023 End: 07-21-2024 TYPE AND SCREEN,30 DAY TYPE AND SCREEN,30 DAY Blood Bank Routine Preoperative examination Infected hernioplasty mesh, sequela Expected: 07/21/2023 (Approximate), Expires: 07/21/2024 [facility] Work Phone: Comment on above: Expected: 07/21/2023 (Approximate), Expires: 07/21/2024 Start: 07-03-2023 [facility] Start: 06-16-2023 Depression Assessment Depression Ass essment [facility] Start: 06-12-2023 Patient referral [facility] Work Phone: Start: 06-01-2023 [facility] Start: 02-14-2023 Covid-19 Vaccine ( season) Covid-19 Vaccine () [facility] Start: 02-14-2023 Influenza vaccination Influenza Vacc ine (#1) [facility] Start: 02-14-2022 Influenza vaccination [facility] Start: 01-14-2022 Influenza vaccination Flu vaccine (# 1) [facility] Start: 01-03-2022 End: 03-05-2022 Bacteria identified in Body fluid by Culture [facility] Work Phone: Comment on above: Expected: 01/03/2022 , Expires: 03/05/2022 Start: 01-01-2022 Application of abdom inal corset [facility] Work Phone: Start: 11-12-2021 Lipid panel Lipid Screening [facility] Start: 11-12-2021 LIPID SCREEN LIPID SCREEN [facility] Start: 06-25-2021 COVID-19 Vaccine (4 - Booster for Moderna series) COVID-19 Vaccine (4 - Booster for Moderna series) [facility] Start: 2019 Lipid panel Lipids [facility] Start: 08-29-2018 Adult depression screening assessment DEPRESSION SCREENING [facility] Start: 2014 Diabetes screen Diabetes screen [facility] Start: 2001 DTaP/Tdap/Td Vaccine s (1 - Tdap) DTaP/Tdap/Td Vaccines (1 - Tdap) [facility] Start: 1998 DTaP/Tdap/Td vaccine (1 - Tdap) DTaP/Tdap/Td vaccine (1 - Tdap) [facility] Start: 1998 DTaP/Tdap/Td Vaccine s (1 - Tdap) DTaP/Tdap/Td Vaccines (1 - Tdap) [facility] Start: 1998 Hepatitis B Vaccine (1 of 3 - 19+ 3-dose series) Hepatitis B Vaccine (1 of 3 - 19+ 3-dose series) [facility] Start: 1998 Hepatitis B Vaccines (1 of 3 - 19+ 3-dose series) Hepatitis B Vaccines (1 of 3 - 19+ 3-dose series) [facility] Start: 1998 Pneumococcal Vaccine : Pediatrics and At-Risk Adult Patients (1 of 2 - PCV) Pneumococcal Vaccine: Pediatrics and At-Risk Adult Patients (1 of 2 - PCV) [facility] Start: 1998 Urine microalbumin profile [facility] Start: 1997 Diabetes mellitus screening Diabetes Screening [facility] Start: 1997 HEPATITIS C SCREENING HEPATITIS C SC REENING [facility] Start: 1997 Hepatitis C screening B ON [facility] Start: 1997 HIV SCREENING HIV SCREENING [facility] Start: 1997 HIV screening HIV Screening [facility] Start: 1994 HIV screening HIV screen [facility] Start: 1991 Depression Screen Depression Screen [facility] Start: 1985 PNEUMOCOCCAL (1 - PCV) PNEUMOCOCCAL (1 - PCV) [facility] Start: 1985 Pneumococcal 0-64 ye ars Vaccine (1 - PCV) Pneumococcal 0-64 years Vaccine (1 - PCV) [facility] Start: 1985 Pneumococcal vaccination Pneum ococcal Vaccine (1 of 2 - PCV) [facility] Start: 1985 Pneumococcal Vaccine : Pediatrics (0 to 5 Years) and At-Risk Patients (6 to 64 Years) (1 - PCV) Pneumococcal Vaccine: Pediatrics (0 to 5 Years) and At-Risk Patients (6 to 64 Years) (1 - PCV) [facility] Start: 01-25-1980 MMR Vaccines (1 of 1 - Standard series) MMR Vaccines (1 of 1 - Standard series) [facility] Start: 1979 COVID-19 Vaccine (#1) COVID-19 Vacci ne (#1) [facility] Start: 1979 Hepatitis B Vaccine (1 of 3 - 3-dose series) Hepatitis B Vaccine (1 of 3 - 3-dose series) [facility] Start: 1979 Hepatitis B Vaccines (1 of 3 - 3-dose series) Hepatitis B Vaccines (1 of 3 - 3-dose series) [facility] Start: 1979 HIV screening HIV Screening [facility] Start: 1979 Lipid panel Lipid Panel [facility] Start: 1979 Screening for malign ant neoplasm of colon [facility] Start: 1979 Yearly Adult Physical Yearly Adult P hysical [facility] End: 07-21-2024 ECG COMPLETE ECG COMPLETE ECG Routine Preoperative examination Infected hernioplasty mesh, sequela 1 Occurrences starting 07/21/2023 until 07/21/2024 [facility] Work Phone: Comment on above: 1 Occurrences starti ng 07/21/2023 until 07/21/2024 Patient Education [facility] Work Phone: Patient referral [facility] Work Phone: REFER FOR ADMIT INTERVIEW REFER FOR ADMIT INTERVIEW Procedures Routine Preoperative examination Infected hernioplasty mesh, sequela Ordered: 07/21/2023 [facility] Work Phone: Comment on above: Ordered: 07/21/2023 SPINE INTERVENTION PROCEDURE SPINE INTERVENTION PROCEDURE Procedures Routine Left lateral abdominal pain Ordered: 10/10/2023 [facility] Work Phone: Comment on above: Ordered: 10/10/2023 [facility] Immunizations Immunization Date Immunization Notes Care Provider Fa cili 04-30-2021 SARS-CoV-2 (COVID-19 ) mRNA-1273 vaccine JORGITO CANNON DO [facility] Comment on above: Result Comment: 2021: [id number] 10-05-2020 SARS-CoV-2 (COVID-19 ) mRNA-1273 vaccine JORGITO CANNON DO [facility] 09-06-2020 SARS-CoV-2 (COVID-19 ) mRNA-1273 vaccine JORGITO CANNON DO [facility] 09-09-2013 influenza, seasonal, injectable, preservative free ASHLYN BLISS MD [facility] 09-09-2013 influenza virus vaccine, unspecified formulation [facility] Payers Date Payer Category Payer Managed Care (Private) NGUYỄN YOTS [facility] [id number] 2024 Self-pay [id number] 2023 Unknown NGUYỄN ADRIAN HI X [id number] 2023-Present [phone] [address] [address] [place] [address] O [id number] 2023 Unknown [id number] 2022 Medicaid (Managed Care) 1.2. [id number] 2022 Medicaid 2022 Medicaid MEDICAID [facility] MEDICAID [id number] 2022-Present [phone] [address] [place] [address] Medicaid [id number] 2014 Medicaid [id number] 2014 Medicaid [id number] 1979 Unknown [id number] [id number]. 668 1979 Unknown [id number] 2.16840.1.573080.3.579.2. 204 1979 Unknown [id number] 2.16.840.1.249532.3.579.2. 204 1979 Unknown [id number] 2.16.840.1.448708.3.579.2. 651 1979 Unknown [id number] 2.16.840.1.854883.3.579.2. 903 1979 Unknown [id number] 2.16.840.1.734879.3.579.2. 903 1979 Unknown [id number] 2.16.840.1.935029.3.579.2. 1979 Unknown [id number] 2.16.840.1.186853.3.579.2. 1979 Unknown [id number] 2.16.840.1.464049.3.579.2. 1979 Unknown [id number] 2.16840.1.783911.3.579.2. 1979 Unknown [id number] 2.840.1.486621.3.579.2 1979 Unknown [id number] 2.16840.1.664258.3.579.2. 1979 Unknown [id number] 2.16840.1.374345.3.579.2 1979 Unknown [id number] 2.16840.1.336311.3.579.2. 1979 Unknown [id number] 2.16840.1.007379.3.579.2. 1979 Unknown [id number] 2.16840.1.636145.3.579.2. 1979 Unknown [id number] 2.16840.1.109392.3.579.2. 1979 Unknown [id number] 2.16.840.1.219960.3.579.2. 1979 Unknown [id number] 2.16840.1.681762.3.579.2. 1979 Unknown [id number] 2.16840.1.650407.3.579.2. 627 Unknown [facility] [id number] Unknown [id number] 2.16.840.1.707818.3.579.2. 462 Unknown [id number] 2.16.840.1.571165.3.579.2. 462 Unknown [id number] 2.16.840.1.502358.3.579.2. 462 Social History Date Type Detail Facility Start: 10-23-2016 End: 09-19-2024 Tobacco smoking status Smokes tobacco daily (finding) [facility] Sex Assigned At Sex [facility] Start: 10-19-2021 End: 08-27-2023 Tobacco smoking status Light tobacco smoker (finding) [facility] Start: 11-14-2021 End: 07-01-2022 Tobacco smoking status Heavy tobacco smoker (finding) [facility] Start: 01-01-2022 End: 06-01-2023 Tobacco smoking status NHIS Unknown if ever smoked [facility] Start: 09-23-2018 Cigarettes [facility] Start: 1980 Sex Assigned At Male [facility] Start: 10-23-2016 End: 08-13-2024 Cigarettes smoked current (pack per day) - Reported 2 [facility] Start: 10-23-2016 End: 08-13-2024 Tobacco use and exposure Smokeless tobacco non-user [facility] Start: 01-03-2022 End: 09-16-2023 Alcohol intake Current non-drinker of alcohol (finding) [facility] Start: 1980 Sex Assigned At Not on file [facility] Start: 12-24-2021 End: 06-29-2024 Exposure to SARS-CoV-2 (event) Not sure [facility] Start: 03-08-2022 Alcohol intake Ex-drinker (finding) [facility] Work Phone: History of tobacco use Cigarette Smoker B ON [employer] Work Phone: Start: 07-07-2023 End: 08-13-2024 Tobacco use panel [facility] National Score (1-10 0), lower number is lower risk 67 [facility] Start: 06-25-2023 Gender identity Identifies as male gender (finding) [facility] Start: 06-25-2023 Sexual orientation Heterosexual (finding) [facility] Start: 09-16-2023 Tobacco Comment Currently smokes 0.5 ppd [facility] Start: 09-16-2023 Alcohol Comment rare [facility] Start: 06-29-2024 End: 08-13-2024 Alcoholic beverage intake Lifetime non-drinker (finding) [facility] Work Phone: History of tobacco use Passive smoker [facility] Work Phone: Start: 08-24-2024 End: 09-19-2024 Sex Male (finding) [facility] Equipment Procedure Code Equipment Code Equipment Origin al Text Equipment Identifier Dates MESH,VENTLEX ST SM 4.3CM FDA Start: 09-25-2018 MESH,VENTLEX ST SM 4.3CM FDA Start: 09-25-2018 MESH,VENTLEX ST SM 4.3CM FDA Start: 09-25-2018 MESH,VENTLEX ST SM 4.3CM FDA Start: 09-25-2018 MESH,VENTLEX ST SM 4.3CM FDA Start: 09-25-2018 Functional Status Date Assessment Result Facility 05-16-2024 Functional Status Independent [facility] 05-16-2024 Functional Status Standard Safet y ID band on, Allergy Band on, Call device within reach, Bed in low position, Wheels locked, Visitor at bedside, Safety level maintained [facility] 09-11-2023 Functional Status Independent [facility] 08-27-2023 Functional Status Awake, Up ad loc [facility] 08-27-2023 Functional Status Maintained, Less than 8 hours [facility] 06-28-2023 Functional Status Room check performed [facility] 06-28-2023 [facility] Functional Status Independent [facility] 06-08-2023 Functional Status Ambulation in [place], Ambulation in Room [facility] 05-16-2023 Functional Status Standard Safet y ID band on, Allergy Band on, Call device within reach, Bed in low position, Wheels locked, Upper/Half-Length side-rails up, personal items within reach, Visitor at bedside [facility] 02-12-2023 Functional Status ID band on, Allergy Band on, Call device within reach, Bed in low position, Wheels locked, Bedside Cart Locked, Visitor at bedside, Safety level maintained [facility] 02-12-2023 Functional Status [facility] 10-28-2022 Functional Status ID band on, Allergy Band on [facility] 10-28-2022 Functional Status ID band on, Allergy Band on, Call device within reach, Bed in low position, Wheels locked, Upper/Half-Length side-rails up, Phone within reach, personal items within reach, Bedside Cart Locked, Visitor at bedside [facility] 10-21-2022 Functional Status ID band on, Allergy Band on, Safety level maintained [facility] 09-12-2022 Functional Status Ambulating in zamorano [facility] 09-05-2022 Functional Status Sensory Deficits None [facility] 08-28-2022 Functional Status Standard Safet y ID band on, Call device within reach, Bed in low position, Wheels locked, Upper/Half-Length side-rails up, Bedside Cart Locked, Safety level maintained [facility] 08-18-2022 Functional [facility] Functional Status Room check performed [facility] 07-22-2022 Functional Status Up ad loc [facility] 07-22-2022 Functional Status Standard Safet y ID band on, Allergy Band on, Call device within reach, Bed in low position, Wheels locked, Visitor at bedside [facility] 07-18-2022 Functional Status abdominal bind er on, ice on [facility] 07-18-2022 [facility] Functional Status Activity Pillo contreras Independent [facility] 07-15-2022 Functional Status Standard Safet y ID band on, Allergy Band on, Call device within reach, Bed in low position, Wheels locked, Upper/Half-Length side-rails up, Phone within reach, personal items within reach, Safety level maintained [facility] 07-09-2022 Functional Status Sensory Deficits None [facility] 06-27-2022 Functional Status Room check performed [facility] 06-27-2022 Functional Status [facility] 06-01-2022 Functional Status Ambulating in zamorano, Ambulating in room, Awake [facility] 05-31-2022 Functional Status Standard Safet y ID band on, Allergy Band on, Call device within reach, Bed in low position, Wheels locked, Upper/Half-Length side-rails up, personal items within reach [facility] 05-27-2022 [facility] Functional Status Room check performed [facility] 03-14-2022 [facility] 12-21-2021 Functional Status Standard Safet y ID band on, Call device within reach, Bed in low position, Wheels locked, Upper/Half-Length side-rails up, Bedside Cart Locked, Safety level maintained [facility] 12-21-[address] [facility] 11-30-2021 Functional Status Standard Safet y ID band on, Call device within reach, Bed in low position [facility] 11-14-2021 Functional Status Sensory Deficits None [facility] 10-06-2021 Functional Status [facility] 10-06-2021 Functional Status [facility] Mental Status Date Assessment Result Facility 05-16-2024 Mental Status Orientation Oriented x 4 [facility] 05-16-2024 Mental Status [facility] 09-11-2023 Mental Status Orientation Oriented x 4 [facility] 08-27-2023 [facility] Status [facility] x [facility] 08-27-2023 Mental Status [facility] 06-28-2023 Mental Status Orientation Oriented x 4 [facility] 06-28-2023 Mental Status [facility] 06-08-2023 Mental Status Orientation Oriented x 4 [facility] 06-08-2023 Mental Status [facility] 05-16-2023 Mental Status Orientation Oriented x 4 [facility] 02-12-2023 Mental Status Orientation Oriented x 4 [facility] 02-12-2023 Mental Status [facility] 10-28-2022 Mental Status Orientation Oriented x 4 [facility] 10-28-2022 Mental Status Oriented x 4 [facility] 10-21-2022 Mental Status Orientation Oriented x 4 [facility] 09-12-2022 Mental Status Orientation Oriented x 4 [facility] 09-05-2022 Mental Status Orientation Oriented x 4 [facility] 08-28-2022 Mental Status Orientation Oriented x 4 [facility] 08-18-2022 Mental Status Orientation Oriented x 4 [facility] 08-18-2022 Mental Status [facility] 07-22-2022 Mental Status Orientation Oriented x 4 [facility] 07-22-2022 Mental Status [facility] 02-02-2023 Mental Status Orientation Oriented x 4 [facility] 07-18-2022 Mental Status [facility] 07-15-2022 Mental Status Orientation Oriented x 4 [facility] 07-15-2022 Mental Status [facility] 06-28-2022 Mental Status Orientation Oriented x 4 [facility] 06-27-2022 Mental Status [facility] 06-01-2022 Mental Status Orientation Oriented x 4 [facility] 05-31-2022 Mental Status [facility] 05-27-2022 Mental Status Orientation Oriented x 4 [facility] 03-15-2022 Mental Status Orientation Oriented x 4 [facility] 03-14-2022 Mental Status [facility] 12-21-2021 Mental Status Oriented x 4 [facility] 12-21-2021 Mental Status [facility] 11-30-2021 Mental Status Orientation Oriented x 4 [facility] 11-30-2021 Mental Status [facility] 10-06-2021 Mental Status [facility] 10-06-2021 Mental Status [facility] Clinical Notes 10-06-2021 to 09-19-2024 Note Date & Type Note Facility 09-19-2024 Discharge summary [facility] 09-19-2024 Radiology Diagnostic study note [facility] Imaging Services [address] [place], [place] [address] Shoulder min 2 Views MR#: [id number] Acct: [id number] Name: PATRICK KOROMA Rep #: [id number] : 1980 M 44 From: Zuly Tena DO PCP: ERIC Anaya Status: REG ER Study:Shoulder min 2 Views Date of Exam: 09/19/24 Exam# [id number] Ordering Dr: Brian Maldonado MD PROCEDURE: SHOULDER MIN 2 VIEWS 09/19/2024 REASON FOR EXAM: TRAUMA TECHNIQUE: 4 view(s) of the right shoulder COMPARISON: None FINDINGS: Bones: No acute fracture. Joints: Normal alignment of the acromioclavicular and glenohumeral joints. Soft tissues: Soft tissues are unremarkable. Other: RAD/Shoulder min 2 Views IMPRESSION: NO ACUTE FRACTURE OR DISLOCATION. Reading Location: [facility] CC: TICKET MARKER-Marielos Starkey; Dr. Brian Maldonado MD ~ Advertising Assistant Manager: Signed [facility] 09-19-2024 Radiology Diagnostic study note [facility] Imaging Services [address] [place], [place] [address] Clavicle MR#: [id number] Acct: [id number] Name: PATRICK KOROMA Rep #: [id number] : 1980 M 44 From: Zuly Tena DO PCP: ERIC Anaya Status: REG ER Study:Clavicle Date of Exam: 09/19/24 Exam# [id number] Ordering Dr: Brian Maldonado MD PROCEDURE: CLAVICLE 09/19/2024 REASON FOR EXAM: TRAUMA TECHNIQUE: Two views of the right clavicle were obtained COMPARISON: None FINDINGS: Bones: No acute fracture. Joints: Joint spaces are preserved. Soft tissues: No soft tissue abnormality. RAD/Clavicle IMPRESSION: NO EVIDENCE OF CLAVICLE FRACTURE Reading Location: [place] CC: ERIC Starkey; Dr. Brian Maldonado MD ~ Advertising Assistant Manager: Signed [facility] 09-19-2024 Discharge summary Note Date/Time September 19, 2024 10:25pm [facility] Medical Records Department [address] [place] [address] Emergency Department Summary 09/19/24 MR#: [id number] Acct: [id number] Name: PATRICK KOROMA Rep #:[id number] : 1980 44 From: Brian Maldonado MD PCP: ERIC Anaya Status:REG ER Location: ED HPI History of Present Illness Chief Complaint: Upper Extremity Injury Narrative Narrative: 44-year-old male, [id number], presents with injury to his right shoulder and clavicle that he sustained on Friday, 5 days ago. He relates history that he was seen a few weeks ago and was having shoulder pain previously. He was seen in the emergency department and prescribed a medicationfor tendinitis which has not been helping. He was on a forefoot stepladder whenhe was trying to get down and missed a stair, and landed on his right shoulder. While he may have hit his head and fell onto his right side, he denies any loss of consciousness or any other injury. He has been having pain in his right shoulder and right clavicle ever since. Pain is worse with movement and when hetries to raise his right arm. Denies other injuries. [facility] Medical History Seroma after procedure Influenza due to influenza virus, type A, human Contact with or suspected exposure to other viral communicable disease Abdominal pain Sprain of left foot Left ankle sprain Strain of left knee Contusion of left knee Seizures Home Medications ?Medication ?Instructions ?Recorded ?Last Taken ?Type NK 09/19/24 Unknown History Allergy/AdvReac Type Severity Reaction Status Date / Time adhesive tape Allergy Hives Verified 09/19/24 21:19 cephalexin monohydrate (From Allergy Anaphylaxis Verified 09/19/24 21:19 Keflex) levetiracetam (From Keppra) Allergy Hives Verified 09/19/24 21:19 morphine Allergy Shortness Verified 09/19/24 21:19 of breath naproxen (From Naprosyn) Allergy Hives Verified 09/19/24 21:19 Family History Grandmother Arthritis Mother Arthritis Seizures Father Colon cancer Diabetes Brother Heart disease Surgical History H/O hernia repair History of appendectomy Social History household members: spouse Smoking Status: Current every day smoker tobacco type: cigarettes alcohol intake: never ROS ROS ED ROS Narrative Systems positive for right clavicle and shoulder pain worse with movement. Desvn-aspg-ahydmcac. Denies hitting of his head or loss of consciousness, no other injury. No elbow pain. EXAM Physical Exam Narrative Exam Narrative: GCS 15. ABCs intact. Afebrile. Vital signs noted. Cardiovascular examinationreveals mild tachycardia at 106 bpm. Lungs clear to auscultation bilaterally. Abdomen soft and nontender with positive bowel sounds. Inspection of the right shoulder reveals mild tenderness to palpation in the right clavicle and diffusely in the right shoulder but also in the right AC joint. No clinical dislocation. Able to raise arm to approximately 30 degrees but then experiencespain. Neurovascular intact distally. Able to flex and extend elbow without difficulty on the right. Palpable radial pulse. Uninjured at elbow and below. Const Vital Signs: 09/19/24 21:16 Temperature 97.1 F L Temperature Source Temporal Pulse Rate 106 H Respiratory Rate 17 Blood Pressure 153/89 H Blood Pressure Mean 110 Pulse Ox 100 Oxygen Delivery Method Room Air MDM MDM MDM Narrative Medical decision making narrative: Differential diagnosis includes but not limited to right shoulder contusion versus clavicle contusion versus fracture versus proximal humeral fracture versus AC joint separation. Patient was given 1 Tynan tablet here for analgesia and x-rays obtained of the right clavicle and of the right shoulder. On my independent interpretation of the right clavicle x-ray, there is no evidence of an acute fracture. I reviewed the radiology report which confirms my independent interpretation. Additionally, I interpreted the right shoulder x-ray and see no evidence of acute fracture or dislocation. I reviewed the radiology report which also confirms my independent interpretation. At this point in time, he will be given a sling for comfort. He was told to exercise his right shoulder a few times a day and not use the sling all the time to prevent adhesive capsulitis. He was referred to orthopedics for follow-up in 1 week if not improving. I feel he can take nbyi-iro-clecvfu medications for analgesia. Return instructions to the emergency department were reviewed. Disposition is discharged home in stable condition. History & Record Review Discussion w/independent historian: Patient and Significant other Radiography X-Ray: Read by ED Physician, Read by Radiologist, No Fracture and Normal Bony Alignment Discharge Plan Triage Chief Complaint: Upper Extremity Injury ED Provider: Brian Maldonado Dx/Rx/DC Orders Clinical Impression: Fall from ladder, Contusion of right shoulder region, Pain of right clavicle Instructions: ED Shoulder Pain, Uncertain Cause Prescriptions: No Action NK Primary Care Provider: Viola Starkey NP Referrals: Dariel Stephen DO [Med Staff - Active Staff] - 1 Week if not improving Viola Starkey TICKET MARKER, TICKET MARKER-C [Primary Care Provider] - Activity Restrictions/Additional Instructions: You may wear the sling for comfort but exercise your right shoulder at least 3 times a day to prevent frozen shoulder. Bjlq-isu-mmcodqt medications as needed for pain. Follow-up with orthopedics if not improving. Print Language: Jamaican Disposition Disposition: Home, Self Care What to do if you have Problems For any increased pain, shortness of breath, bleeding, nausea or vomiting, chestpain, or any unexpected problems, contact your Primary Care Provider. Call [facility] ([phone]) or report to the closest Emergency Room. Call 911 if necessary. 09/19/242224 <Electronically signed by Brian Maldonado MD> Cosigner Signature (if applicable): CC: ERIC Starkey ~ Signed [facility] Work Phone: [phone]) 743-798303-11-2025 Radiology Diagnostic study note [facility] Imaging Services [address] [place] [address] Shoulder min 2 Views MR#: [id number] Acct: [id number] Name: PATRICK KOROMA Rep #: [id number] : 1980 M 44 From: Shahbaz Johnson DO PCP: Care Physician,No Primary Status: PRE ER Study:Shoulder min 2 Views Date of Exam: 08/24/24 Exam# [id number] Ordering Dr: Provider ,Ed P. PROCEDURE: Right shoulder radiographs REASON FOR EXAM: PAIN, LOSS OF MOBILITY TECHNIQUE: Four views of the right shoulder COMPARISON: None. FINDINGS: See impression RAD/Shoulder min 2 Views IMPRESSION: Negative for acute fracture or malalignment. 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 Mildacromioclavicular joint osteoarthritis. Reading Location: [facility] CC: ED PHYSICIAN PROVIDER; No Primary Care Physician ~ Advertising Assistant Manager: Signed [facility]02-28-2025 History of Present illness Narrative* Stephon Benavides MD - 08/13/2024 1:00 PM EST History Of Present Illness Patient is a 44 y.o. male who presents to discuss further workup and/or management of his recurrentmidline incisional hernias. On 11/22/2021 the patient underwent a robotic-assisted laparoscopic ventral hernia repair with an [address] mesh. On 07/18/2022 the patient underwent open repair of a recurrent periumbilical hernia with anterior component separation with onlay mesh repair. He has now developed a recurrent bulge in the supraumbilical region with intermittent pressure and pulling type sensations and discomfort. He recently underwent a CT scan on May 16, 2024 which does show a recurrent incisional hernia specifically through the linea alba with some onlay mesh present. Denies any history of incarceration or strangulation, denies any overlying skin changes. Currently denies any fevers, chills, nausea, vomiting, chest pain, shortness of breath. Of note, patient is a current smoker with a BMI of 43.8. Past Medical History No past medical history on file. Surgical History Past Surgical History: Procedure Laterality Date HERNIA REPAIR N/A 07/2022 Social History He reports that he has been smoking cigarettes. He has been exposed to tobacco smoke. He has never used smokeless tobacco. He reports that he does not drink alcohol and does not use drugs. Family History No family history on file. Allergies Morphine, Adhesive, Cephalexin, Naproxen, and Levetiracetam Review of Systems - CONSTITUTIONAL: Denies fever and chills. - HEENT: Denies changes in vision and hearing. - RESPIRATORY: Denies SOB and cough. - CV: Denies palpitations and CP. - GI: see HPI - : Denies dysuria and urinary frequency. - MSK: Denies myalgia and joint pain. - SKIN: Denies rash and pruritus. - NEUROLOGICAL: Denies headache and syncope. - PSYCHIATRIC: Denies recent changes in mood. Denies anxiety and depression. Physical Exam - GENERAL: Alert and oriented x 3. No acute distress. Well-nourished. - EYES: EOMI. Anicteric. - HENT: Moist mucous membranes. No scleral icterus. No cervical lymphadenopathy. - LUNGS: Breathing comfortably on room air. No accessory muscle use, no distress. - CARDIOVASCULAR: Regular rate and rhythm. No murmur. No JVD. - ABDOMEN: Soft, non-tender and non-distended. Well-healed midline incision, no obvious palpable fascial defect, however bulge noted in the supraumbilical region. - EXTREMITIES: No edema. Non-tender. - SKIN: No rashes or lesions. Warm. - NEUROLOGIC: No focal neurological deficits. CN II-XII grossly intact, but not individually tested. - PSYCHIATRIC: Cooperative. Appropriate mood and affect. Last Recorded Vitals Blood pressure (!) 132/95, pulse (!) 125, resp. rate 16, height 1.88 m (6' 2), weight (!) 155 kg (341 lb). Relevant Results No results found. Assessment and Plan Patient is a 44 y.o. male who presents with a recurrent incisional hernia in the midline. We discussed at length the etiology, pathophysiology, natural course, various treatment options for incisional hernias. We discussed that for definitive management of his recurrent hernia he needs an abdominalwall reconstruction with retrorectus release and possible TAR. We discussed the risk benefits of surgery. We discussed the expected postoperative recovery. We did however discuss various patient modifiable risk factors including obesity, and smoking. He has recently cut back on his smoking and is willing to quit. He is also willing to lose weight prior to surgery. His questions were answered and at this time he will call our office to schedule surgery once he has stopped smoking and has lost weight (at least 30lbs - BMI <40). Stephon Benavides MD documented in this [facility] Work Phone: [phone]) 819-167301-14-2025 History of Present illness Narrative* Jonathan Gonzalez MD - 06/29/2024 2:45 PM EST History Of Present Illness : Patrick Cali is a 44 y.o. male who presents as a self-referral for second opinion with regard to his abdominal wall. The patient lives in [facility]. The patient has had multiple abdominal operations in the past. He had a laparoscopic appendectomy in 2000 in [place]. He thereafter had 3 operations for abdominal wall hernias by Dr. Aaron Duque at [facility]. In 2016 and 2018, he underwent laparoscopic repair of abdominal wall hernias with mesh. On 07/18/2022, the patient underwent open abdominal wall hernia repair with mesh. Apparently with each subsequent operation, he did have explantation of the previous mesh. I do not have access to these reports. The patient notes that his most recent CAT scan of the abdomen pelvis was in May 09 at [facility] in [place]. The patient has noted recurrent fullness in the mid abdomen, with associated sharp pain especially at night, since March 2024.. He denies other symptoms such as nausea vomiting diarrhea constipation changes bowel habits or blood in the stool. Patient is engaged to be to Afshan who accompanied him to the office. He has 4 children. 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 The patient denies any significant alcohol use. He has smoked since age 8, less than 1 pack a day. Past Medical History History reviewed. No pertinent past medical history. Surgical History Past Surgical History: Procedure Laterality Date HERNIA REPAIR N/A 07/2022 Allergies Allergies Allergen Reactions Morphine Anaphylaxis and Rash Adhesive Hives Paper Tape Cephalexin Hives Naproxen Hives Levetiracetam Hives and Rash Other reaction(s): Rash Home Meds No current outpatient medications Family History No family history on file. Social History Social History Tobacco Use Smoking status: Every Day Types: Cigarettes Smokeless tobacco: Never Substance Use Topics Alcohol use: Never Drug use: Never Review Of Systems Review of Systems General: Not Present- Cancer, HIV, MRSA, Recent Cold/Flu, Tired During the Day and VRE. HEENT: Not Present- Migraine, Cataracts, Glaucoma, Macular Degeneration and Retinal Detachment. Respiratory:Not Present- Asthma, Chronic Cough, Difficulty Breathing on Exertion, Difficulty Breathing at Rest, Emphysema, Frequent Bronchitis, Home CPAP/BiPAP, Home Oxygen, Pulmonary Embolus, Pneumonia/TB, Sleep Apnea and Snoring. Cardiovascular: Not Present- Chest Pain, Congestive Heart Failure, Heart Attack, Coronary Artery Disease, Heart Stent, High Cholesterol/Lipids,Hypertension, Internal Defibrillator, Irregular Heart Beat, Mitral Valve Prolapse, Murmur, Pacemaker and Peripheral Vascular Disease. Gastrointestinal: Not Present- Heartburn, Hepatitis, Hiatal Hernia, Jaundice, Reflux, Stomach Ulcerand IBS. Male Genitourinary: Not Present- Enlarged Prostate, Kidney Failure, Kidney Stones, Dialysis and Urinary Tract Infection. Musculoskeletal: Not Present- Arthritis, Back Pain and Fibromyalgia. Neurological: Not Present- Headaches, Numbness, Tingling, Seizures, Stroke, INTELLIGENCE CONSULTANT Shunt and Weakness. Psychiatric: Not Present- Anxiety, Bipolar, Depression and Panic Attacks. Endocrine: Not Present- Diabetes, Hyperthyroidism, Hypothyroidism and Low Blood Sugar. Hematology: Not Present- Abnormal Bleeding, Anemia and Blood Clots. Vitals Visit Vitals BP (!) 141/94 (BP Location: Right arm, Patient Position: Sitting, BP Cuff Size: Large adult) Pulse 91 Temp 36.6 C (97.8 F) (Temporal) Resp 18 Physical Exam Abdominal / Ano-Rectal Physical Exam General General Appearance - Not in acute distress. Well-developed and well-nourished. Alert and oriented times 3. Morbidly obese. BMI 43.65. Chest and Lung Exam Auscultation: Breath sounds: - Normal. Clear and equal bilaterally. Adventitious sounds: - No Adventitious sounds. Cardiovascular Auscultation: Rate and Rhythm - Regular. Heart Sounds - Normal heart sounds. No murmurs. Abdomen Inspection: Inspection of the abdomen reveals - No Visible peristalsis, No Abnormal pulsations, No Paradoxical movements Palpation/Percussion: Palpation and Percussion of the abdomen reveal - Non Tender, No Rebound tenderness, NoRigidity (guarding) and No Palpable abdominal masses. Liver: - Normal. Spleen: - Normal. Auscultation: Auscultation of the abdomen reveals - Bowel sounds normal and No Abdominal bruits. Surgical scars: 16 cm lower midline scar; multiple laparoscopic On the superior aspect of the scar and superior to the scar, there is a diffuse roughly 12 x 12 cm abdominal wall fullness. I cannot palpate a fascial defect. Inguinal and External Genitalia The patient was examined supine, and standing, with and without Valsalva. There is no evidence of inguinal or femoral hernia or lymphadenopathy bilaterally. The testes are descended bilaterally and symmetric, with no masses, nodules, or tenderness. Rectal Anorectal Exam: not examined. Assessment/Plan Mr. Koroma has a history of multiple abdominal wall hernias. He now has abdominal wall pain, ventura indiscrete fullness on the superior aspect of his midline scar. Recommendations: Will obtain the 3 operative notes and review Will obtain the recent CAT scan images and upload to the PACS system and review Will call the patient thereafter with recommendations and management plan documented in this [facility] Work Phone: [phone]) 830-518812-02-2024 Hospital Discharge instructions Patient Education 05/16/2024 22:58:38 Hernia (Adult) Hernia (Adult) A hernia can happen when there is a weakness or defect in the wall of the abdomen or groin. Intestines or nearby tissues may move from their usual location and push through the weakness in the wall. This can cause a hernia (bulge) you may see or feel. Causes and risk factors A hernia may be present at . Or it may be caused by the wear and tear of daily living. Certainfactors can make a hernia more likely. These can include: Heavy lifting Straining, whether from lifting, movement, or constipation Chronic cough Injury to the abdominal wall Excess weight Prior surgery Older age Family history of hernia Symptoms Symptoms of a hernia may come on suddenly. Or they may appear slowly over time. Some common symptoms include: Bulge in the groin area, around the navel, or in the scrotum (the bulge may get bigger when you stand and go away when you lie down) Pain or pressure around the bulge Pain during activities such as lifting, coughing, or sneezing A feeling of weakness or pressure in the groin Pain or swelling in the scrotum Types of hernias There are different types of hernia. The type you have depends on its location: Inguinal. This type is in the groin or scrotum. It is more common in men. But, women can get this hernia, too. Femoral. This type is in the groin, upper thigh (where the leg bends), or labia. It is more common in women. Ventral. This type is in the abdominal wall. Umbilical. This type occurs around the navel (belly button). Incisional. This type occurs at the site of a previous surgery. The condition of the hernia can help determine how urgently it needs to be treated. Reducible. It goes back in by itself, or it can be pushed back in. Irreducible. It can t be pushed back in. Incarcerated/strangulated. The intestine is trapped (incarcerated). If this happens, you won t be able to push the bulge back in. If the incarcerated hernia isn t treated, it may become strangulated.This means the area loses blood supply and the tissue may . This requires emergency surgery. Youneed treatment right away. In most cases, a hernia will not heal on its own.You may need surgery to repair the defect in the abdominal wall or groin. You ll be told more about surgery, if needed. If your symptoms are not severe, treatment may sometimes be delayed. In such cases, you will need regular follow-up visits with the provider. You ll be asked to keep track of your symptoms and to watch for signs of more serious problems. You may also be given guidelines similar to the home care instructions below. Home care To help keep a hernia from getting worse, you may be advised to: Avoid heavy lifting and straining as directed. Take steps to prevent constipation, such as eating more fiber and drinking more water. This may help reduce straining that can occur when having a bowel movement. Reducing straining may help keep your symptoms from getting worse. Maintain a healthy weight or lose excess weight. This can help reduce strain on abdominal muscles and tissues. Stop smoking. This can help prevent coughing that may also strain abdominal muscles and tissues. Follow-up care Follow up with your healthcare provider, or as directed. If imaging tests were done, they will be reviewed a doctor. You will be told the results and any new findings that may affect your care. When to seek medical advice Call your healthcare provider right away if any of these occur: Hernia hardens, swells, or grows larger Hernia can no longer be pushed back in Pain moves to the lower right abdomen (just below the waistline), or spreads to the back Call 911 Call 911 if any of these occur: Severe pain, redness, or tenderness in the area near the hernia Pain worsens quickly and doesn t get better Inability to have a bowel movement or pass gas Fever of 100.4 F (38 C) or higher, or as directed by your healthcare provider [id number] [employer] [place] [address], [place] [address]. All rights reserved. This information is not intended as a substitute for professional medical care. Always follow yourhealthcare professional's instructions. Follow Up Care 05/16/2024 21:33:35 With:AARON DUQUE MD, Surgery Address: [address] [facility] [place] [address]- [phone] When:2-4 days [facility] 12-01-2024 Emergency department Discharge summary Discharge Instructions Thank you for allowing [facility] to assist you with your healthcare needs. The following is importantdischarge information regarding your hospital visit. Diagnosis from Today's Visit Abdominal wall hernia What to Do Next Instructions from Your Care Team Discharge Return to Work, School, or Sports (Return to Work, School, or Sports) - Ordered -- 05/18/24, May return to: work, 05/16/24 22:58:00 EST Post Acute Orders No qualifying data available. You Need to Schedule the Following Appointments Follow Up with AARON DUQUE MD, Surgery When:Within 2-4 days Where:[address] [place] [address]- [phone] Allergies Keflex Keppra Rash Tape, Paper Rash morphine Rash naproxen Medications Please ask your primary doctor or pharmacist before taking any other medication not listed, including over the counter drugs, herbal medications, vitamins and or supplements as they may interact withyour home medications. What How Much When Instructions Last Dose Unchanged gabapentin (Neurontin 800 mg oral tablet) 1 tab(s) by mouth Three (3) times a day Please take this list to your next doctor s visit. Bring all medications you take, including over the counter medications, herbals and other supplements with you to your doctor s visit. Patients and families are reminded to discard old lists and to update any records with all medication providers or retail pharmacies. Education Materials Hernia (Adult) A hernia can happen when there is a weakness or defect in the wall of the abdomen or groin. Intestines or nearby tissues may move from their usual location and push through the weakness in the wall. This can cause a hernia (bulge) you may see or feel. Causes and risk factors A hernia may be present at . Or it may be caused by the wear and tear of daily living. Certainfactors can make a hernia more likely. These can include: Heavy lifting Straining, whether from lifting, movement, or constipation Chronic cough Injury to the abdominal wall Excess weight Prior surgery Older age Family history of hernia Symptoms Symptoms of a hernia may come on suddenly. Or they may appear slowly over time. Some common symptoms include: Bulge in the groin area, around the navel, or in the scrotum (the bulge may get bigger when you stand and go away when you lie down) Pain or pressure around the bulge Pain during activities such as lifting, coughing, or sneezing A feeling of weakness or pressure in the groin Pain or swelling in the scrotum Types of hernias There are different types of hernia. The type you have depends on its location: Inguinal. This type is in the groin or scrotum. It is more common in men. But, women can get this hernia, too. Femoral. This type is in the groin, upper thigh (where the leg bends), or labia. It is more common in women. Ventral. This type is in the abdominal wall. Umbilical. This type occurs around the navel (belly button). Incisional. This type occurs at the site of a previous surgery. The condition of the hernia can help determine how urgently it needs to be treated. Reducible. It goes back in by itself, or it can be pushed back in. Irreducible. It can t be pushed back in. Incarcerated/strangulated. The intestine is trapped (incarcerated). If this happens, you won t be able to push the bulge back in. If the incarcerated hernia isn t treated, it may become strangulated.This means the area loses blood supply and the tissue may . This requires emergency surgery. Youneed treatment right away. In most cases, a hernia will not heal on its own.You may need surgery to repair the defect in the abdominal wall or groin. You ll be told more about surgery, if needed. If your symptoms are not severe, treatment may sometimes be delayed. In such cases, you will need regular follow-up visits with the provider. You ll be asked to keep track of your symptoms and to watch for signs of more serious problems. You may also be given guidelines similar to the home care instructions below. Home care To help keep a hernia from getting worse, you may be advised to: Avoid heavy lifting and straining as directed. Take steps to prevent constipation, such as eating more fiber and drinking more water. This may help reduce straining that can occur when having a bowel movement. Reducing straining may help keep your symptoms from getting worse. Maintain a healthy weight or lose excess weight. This can help reduce strain on abdominal muscles and tissues. Stop smoking. This can help prevent coughing that may also strain abdominal muscles and tissues. Follow-up care Follow up with your healthcare provider, or as directed. If imaging tests were done, they will be reviewed a doctor. You will be told the results and any new findings that may affect your care. When to seek medical advice Call your healthcare provider right away if any of these occur: Hernia hardens, swells, or grows larger Hernia can no longer be pushed back in Pain moves to the lower right abdomen (just below the waistline), or spreads to the back Call 911 Call 911 if any of these occur: Severe pain, redness, or tenderness in the area near the hernia Pain worsens quickly and doesn t get better Inability to have a bowel movement or pass gas Fever of 100.4 F (38 C) or higher, or as directed by your healthcare provider [id number] [employer] [address] [place] [address]. All rights reserved. This information is not intended as a substitute for professional medical care. Always follow yourhealthcare professional's instructions. Additional Information VACCINATE! IT SAVES LIVES! Members of the community who have not yet received the COVID-19 vaccine and would like to receive it can visit one of [facility] vaccine clinics. There are many vaccine clinic locations within the [facility]. For locations and available times, please visit [email or web address]/. It is important to note that some COVID mobile vaccine clinics are held outdoors and may be canceled in rainy or stormy conditions. To learn more about pediatric vaccinations (ages 5-11), we invite you to visit the [facility] webpage. [email or web address]/[email or web address] stions.htmlTo learn more about the COVID-19 vaccine, we invite you to visit the CDC website for a list of frequently asked questions. https://www.cdc.gov/coronavirus/2019-ncov/vaccines/faq.html [facility] [employer] Patient Portal Access Instructions: Stay connected with your healthcare team and access your personal medical information anytime with the [facility] Patient Portal. If you would like a full copy of your medical records please contact the [facility] Medical Records Department Friday through Friday between 8a.m. and 4:30p.m. Please follow the directions below to access the portal: 1.Access the email account you provided upon registration to the [facility].2.Look for an invitation email from [facility].3.Open the email and access the invitation link: Accept Invitation to [facility] [employer]4.Fill in the required vegas to create your account. Sign into [email or web address] with your username and password that you created in the above steps to stay up to date. You can then view a summary of results, a summary of your visits, and the ability to download your summaries to your computer or send the information securely to a physician. Remember that your healthcare information is confidential, so carefully consider who you will allow to register on the [employer] [facility] Patient Portal for access to your information. You can also access the [employer] Patient Portal on the [employer] yen. Simply click on Health Records under [employer] and then click on the [employer] logo. HOW TO SAFELY DISPOSE OF PRESCRIPTION MEDICATIONS Please use one of the following methods to safely dispose of your unused medications. 1.Use a drug disposal kit: the drug disposal pouch allows you to safely discard your old and unuseddrugs. Ask your nurse to give you one when you are discharged.2.Visit a local take-back location: Many local pharmacies and police departments have programs that collect old and unwanted prescriptiondrugs. Call your local pharmacy or go to http://bit.Zenefits/3C4Dy7b to find one close to you.3.Make use of household items: Use cat litter or old coffee grounds to dispose medications if other options arenot available. Mix your drugs with these household products, seal them in an airtight container andthrow it into the garbage. Call [facility]: [phone] to be sure your drugs can be disposed of in this way. Some medicines may require a different approach.4.Never flush your medications down the toilet. IF YOU HAVE BEEN PRESCRIBED AN OPIOIDS FOR PAIN If you have been prescribed an opioid (such as hydrocodone, oxycodone or morphine), it is critical to understand the possible side effects and risks of opioid pain medications. Even when taken as directed, opioids can have several side effects including: Tolerance, meaning you might need to take more of a medication for the same pain relief. Nausea, vomiting and/or constipation. Sleepiness, dizziness, dry mouth, confusion, depression or itching. Physical dependence, meaning you have withdrawal symptoms when a medication is stopped ? this can develop within a few days. KNOW YOUR RESPONSIBILITIES It is important to know exactly how much and how often to take the opioid pain medications you are prescribed. Never take opioids in higher amounts or more often than prescribed. Do not combine opioids with alcohol or other drugs that cause drowsiness, such as benzodiazepines, also known as benzos,including diazepam and alprazolam, muscle relaxants or sleep aids. Never sell or share prescriptionopioids. This is illegal. Store opioids in a secure place and out of reach of others (including children, family, friends and visitors). The last page(s) of this document has been signed and retained as a CHART COPY Signatures Patient Education Materials Hernia (Adult) Medication Leaflets My discharge plan and instructions have been reviewed and explained to me and I,PATRICK KOROMA understand my current condition and have read and understand these discharge instructions. I have received a written copy of the plan/instructions. If I have questions, I am aware that I should contact my doctor. Patient/Mica Miner Signature: Date/Time: Relationship to Patient: Witness Name/Signature: Date/Time: [facility]essica [id number] Emergency department Discharge summary Discharge Instructions Thank you for allowing [facility] to assist you with your healthcare needs. The following is importantdischarge information regarding your hospital visit. Diagnosis from Today's Visit Abdominal wall hernia What to Do Next Instructions from Your Care Team Discharge Return to Work, School, or Sports (Return to Work, School, or Sports) - Ordered -- 05/18/24, May return to: work, 05/16/24 22:58:00 EST Post Acute Orders No qualifying data available. You Need to Schedule the Following Appointments Follow Up with AARON DUQUE MD, Surgery When:Within 2-4 days Where:[address] [facility] [place] [address] [phone] Allergies Keflex Keppra Rash Tape, Paper Rash morphine Rash naproxen Medications Please ask your primary doctor or pharmacist before taking any other medication not listed, including over the counter drugs, herbal medications, vitamins and or supplements as they may interact withyour home medications. What How Much When Instructions Last Dose Unchanged gabapentin (Neurontin 800 mg oral tablet) 1 tab(s) by mouth Three (3) times a day Please take this list to your next doctor s visit. Bring all medications you take, including over the counter medications, herbals and other supplements with you to your doctor s visit. Patients and families are reminded to discard old lists and to update any records with all medication providers or retail pharmacies. Education Materials Hernia (Adult) A hernia can happen when there is a weakness or defect in the wall of the abdomen or groin. Intestines or nearby tissues may move from their usual location and push through the weakness in the wall. This can cause a hernia (bulge) you may see or feel. Causes and risk factors A hernia may be present at . Or it may be caused by the wear and tear of daily living. Certainfactors can make a hernia more likely. These can include: Heavy lifting Straining, whether from lifting, movement, or constipation Chronic cough Injury to the abdominal wall Excess weight Prior surgery Older age Family history of hernia Symptoms Symptoms of a hernia may come on suddenly. Or they may appear slowly over time. Some common symptoms include: Bulge in the groin area, around the navel, or in the scrotum (the bulge may get bigger when you stand and go away when you lie down) Pain or pressure around the bulge Pain during activities such as lifting, coughing, or sneezing A feeling of weakness or pressure in the groin Pain or swelling in the scrotum Types of hernias There are different types of hernia. The type you have depends on its location: Inguinal. This type is in the groin or scrotum. It is more common in men. But, women can get this hernia, too. Femoral. This type is in the groin, upper thigh (where the leg bends), or labia. It is more common in women. Ventral. This type is in the abdominal wall. Umbilical. This type occurs around the navel (belly button). Incisional. This type occurs at the site of a previous surgery. The condition of the hernia can help determine how urgently it needs to be treated. Reducible. It goes back in by itself, or it can be pushed back in. Irreducible. It can t be pushed back in. Incarcerated/strangulated. The intestine is trapped (incarcerated). If this happens, you won t be able to push the bulge back in. If the incarcerated hernia isn t treated, it may become strangulated.This means the area loses blood supply and the tissue may . This requires emergency surgery. Youneed treatment right away. In most cases, a hernia will not heal on its own.You may need surgery to repair the defect in the abdominal wall or groin. You ll be told more about surgery, if needed. If your symptoms are not severe, treatment may sometimes be delayed. In such cases, you will need regular follow-up visits with the provider. You ll be asked to keep track of your symptoms and to watch for signs of more serious problems. You may also be given guidelines similar to the home care instructions below. Home care To help keep a hernia from getting worse, you may be advised to: Avoid heavy lifting and straining as directed. Take steps to prevent constipation, such as eating more fiber and drinking more water. This may help reduce straining that can occur when having a bowel movement. Reducing straining may help keep your symptoms from getting worse. Maintain a healthy weight or lose excess weight. This can help reduce strain on abdominal muscles and tissues. Stop smoking. This can help prevent coughing that may also strain abdominal muscles and tissues. Follow-up care Follow up with your healthcare provider, or as directed. If imaging tests were done, they will be reviewed a doctor. You will be told the results and any new findings that may affect your care. When to seek medical advice Call your healthcare provider right away if any of these occur: Hernia hardens, swells, or grows larger Hernia can no longer be pushed back in Pain moves to the lower right abdomen (just below the waistline), or spreads to the back Call 911 Call 911 if any of these occur: Severe pain, redness, or tenderness in the area near the hernia Pain worsens quickly and doesn t get better Inability to have a bowel movement or pass gas Fever of 100.4 F (38 C) or higher, or as directed by your healthcare provider [id number] [employer] [address] [place] [address]. All rights reserved. This information is not intended as a substitute for professional medical care. Always follow yourhealthcare professional's instructions. Additional Information VACCINATE! IT SAVES LIVES! Members of the community who have not yet received the COVID-19 vaccine and would like to receive it can visit one of [facility] vaccine clinics. There are many vaccine clinic locations within the [facility]. For locations and available times, please visit [email or web address]/. It is important to note that some COVID mobile vaccine clinics are held outdoors and may be canceled in rainy or stormy conditions. To learn more about pediatric vaccinations (ages 5-11), we invite you to visit the [facility] webpage. https://[email or web address].org/pages/[email or web address]-Oqrieuvpccu-Ueewapplkp-[email or web address] stions.htmlTo learn more about the COVID-19 vaccine, we invite you to visit the CDC website for a list of frequently asked questions. https://www.cdc.gov/coronavirus/2019-ncov/vaccines/faq.html [employer] Patient Portal Access Instructions: Stay connected with your healthcare team and access your personal medical information anytime with the [employer] Patient Portal. If you would like a full copy of your medical records please contact the [facility] Medical Records Department Friday through Friday between 8a.m. and 4:30p.m. Please follow the directions below to access the portal: 1.Access the email account you provided upon registration to the hospital.2.Look for an invitation email from [facility].3.Open the email and access the invitation link: Accept Invitation to [facility]4.Fill in the required vegas to create your account. Sign into [email or web address] with your username and password that you created in the above steps to stay up to date. You can then view a summary of results, a summary of your visits, and the ability to download your summaries to your computer or send the information securely to a physician. Remember that your healthcare information is confidential, so carefully consider who you will allow to register on the [facility] [employer] Patient Portal for access to your information. You can also access the [employer] Patient Portal on the [employer] yen. Simply click on Health Records under [employer] and then click on the [employer] logo. HOW TO SAFELY DISPOSE OF PRESCRIPTION MEDICATIONS Please use one of the following methods to safely dispose of your unused medications. 1.Use a drug disposal kit: the drug disposal pouch allows you to safely discard your old and unuseddrugs. Ask your nurse to give you one when you are discharged.2.Visit a local take-back location: Many local pharmacies and police departments have programs that collect old and unwanted prescriptiondrugs. Call your local pharmacy or go to http://bit.ly/5Z4Of5p to find one close to you.3.Make use of household items: Use cat litter or old coffee grounds to dispose medications if other options arenot available. Mix your drugs with these household products, seal them in an airtight container andthrow it into the garbage. Call [facility]: [phone] to be sure your drugs can be disposed of in this way. Some medicines may require a different approach.4.Never flush your medications down the toilet. IF YOU HAVE BEEN PRESCRIBED AN OPIOIDS FOR PAIN If you have been prescribed an opioid (such as hydrocodone, oxycodone or morphine), it is critical to understand the possible side effects and risks of opioid pain medications. Even when taken as directed, opioids can have several side effects including: Tolerance, meaning you might need to take more of a medication for the same pain relief. Nausea, vomiting and/or constipation. Sleepiness, dizziness, dry mouth, confusion, depression or itching. Physical dependence, meaning you have withdrawal symptoms when a medication is stopped ? this can develop within a few days. KNOW YOUR RESPONSIBILITIES It is important to know exactly how much and how often to take the opioid pain medications you are prescribed. Never take opioids in higher amounts or more often than prescribed. Do not combine opioids with alcohol or other drugs that cause drowsiness, such as benzodiazepines, also known as benzos,including diazepam and alprazolam, muscle relaxants or sleep aids. Never sell or share prescriptionopioids. This is illegal. Store opioids in a secure place and out of reach of others (including children, family, friends and visitors). The last page(s) of this document has been signed and retained as a CHART COPY Signatures Patient Education Materials Hernia (Adult) Medication Leaflets My discharge plan and instructions have been reviewed and explained to me and I,PATRICK KOROMA understand my current condition and have read and understand these discharge instructions. I have received a written copy of the plan/instructions. If I have questions, I am aware that I should contact my doctor. Patient/Mica Miner Signature: Date/Time: Relationship to Patient: Witness Name/Signature: Date/Time: [facility]12-01-2024 Note ORIGINAL EXAMINATION: CT OF THE ABDOMEN AND PELVIS WITHOUT CONTRAST 05/16/2024 10:16 pm TECHNIQUE: CT of the abdomen and pelvis was performed without the administration of intravenous contrast. Multiplanar reformatted images are provided for review. Automated exposure control, iterative reconstruction, and/or weight based adjustment of the mA/kV was utilized to reduce the radiation dose to as low as reasonably achievable. COMPARISON: CT abdomen pelvis June 28, 2023 HISTORY: ORDERING SYSTEM PROVIDED HISTORY: Reason for Exam: mid to left abd pain. history of hernia repair 2022. pain is where hernia repair was in umbilical area and to the left pain FINDINGS: Lower Chest: No focal consolidation. Organs: No acute findings. No hydronephrosis or hydroureter. No radiopaque stones. GI/Bowel: No bowel obstruction, pneumoperitoneum, or ascites. Pelvis: Unremarkable. Peritoneum/Retroperitoneum: Nonaneurysmal abdominal aorta with scattered atherosclerotic plaque. No enlarged lymph nodes. Bones/Soft Tissues: Degenerative change of the spine. Increased size to fat containing anterior abdominal wall hernia, now measuring up to 11.1 x 3.1 cm in the axial plane (series 2, image 73) and 8.7 cm cranio caudally, with the neck measuring 4.1 cm in the axial plane and 4.6 cm in the sagittal plane. Anterior abdominal wall postsurgical change. IMPRESSION: Increased size to fat containing anterior abdominal hernia. Interpreted by: Wang Francisco Preliminary Report By: Wang Francisco Electronically signed By Wang Francisco Dictated Date: 05/16/2024 10:21:40 PM Prelim Date: 05/16/2024 10:27:09 PM Sign Date: 05/16/2024 10:27:09 PM Ordering Provider: [facility]05-07-2024 Telephone encounter Note* Telephone Encounter - Christy Rodrigez RN - 10/21/2023 10:42 AM EDT Neuro SPINE CARE COORDINATION QUICK NOTE No return call from patient, MYC message not read. 2nd attempt made to reach patient from [facility] phone number. Received message 'calling restrictions that have prevented the completion of the call' Letter sent to patient. Dr. Borrero received referral from Dr. Richardson. Ordered placed for spine med injection with Dr. Hannah. Christy Rodrigez RN BSN Nurse [employer] [facility] Work Phone: 1(966) 907-117805-07-2024 Miscellaneous Notes* Telephone Encounter - Christy Rodrigez RN - 10/21/2023 10:42 AM EDT Neuro SPINE CARE COORDINATION QUICK NOTE No return call from patient, MYC message not read. 2nd attempt made to reach patient from [facility] phone number. Received message 'calling restrictions that have prevented the completion of the call' Letter sent to patient. Dr. Borrero received referral from Dr. Richardson. Ordered placed for spine med injection with Dr. Hannah. Christy Rodrigez RN BSN Nurse Inspector [employer] * Telephone Encounter - Christy Rodrigez RN - 10/10/2023 10:21 AM EDT Neuro SPINE CARE COORDINATION QUICK NOTE Dr. Borrero received referral from Dr. Richardson. Ordered placed for spine med injection with Dr. Hannah. Called patient to advise. Received VM message 'calling restrictions that have prevented the completion of the call' MYC message sent. Christy Rodrigez RN BSN Nurse Inspector [employer] documented in this [facility] Telephone encounter Note * Telephone Encounter - Christy Rordigez RN - 10/10/2023 10:21 AM EDT Neuro SPINE CARE COORDINATION QUICK NOTE Dr. Borrero received referral from Dr. Richardson. Ordered placed for spine med injection with Dr. Hannah. Called patient to advise. Received VM message 'calling restrictions that have prevented the completion of the call' MYC message sent. 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 Burgess Activity Status Index: METS: Climb a flight of stairs or walk up a hill (5.50 METs) DASI Score: 5.5 STOP-Bang Score: Snores loudly BMI greater than 35 kg/m^2 Has a large neck Male patient Denies feeling tired, fatigued, or sleepy during the daytime Has not been observed to stop breathing or choking/gasping during sleep Denies having high blood pressure Patient 50 years old or younger STOP-Bang Score: 4 ANESTHESIA FINDINGS: Intubation History: No history of difficult intubation Significant Anesthesia Considerations: none Airway History: No history of difficult airway I - PHYSICAL EVALUATION AIRWAY Patient intubated: No. Tracheostomy tube not present TM distance: >3 FB. Neck ROM: full ROM without neurological symptoms. Mouth opening: adequate. Short neck: no. Thick neck: no Microretrognathia/Micronagthia/Recessed Chin: No DENTAL Normal dental observations. II - ANESTHESIA PLAN Beta Miguel Monitoring Plan Post Procedure Analgesic Plan PLAN This patient is optimally prepared for surgery pending LABS and EKG. CONSULTS: Patient does not require consults for optimization at this time. Planned Anesthetic: Per anesthesia choice The Following Tests/Procedures Have Been Initiated: Labs and EKG per surgical service REASON FOR VISIT: Patrick Koroma is a 43 year old male who is scheduled for Procedure(s): REMOVAL OF PROSTHETIC MATERIAL OR MESH ABDOMINAL WALL FOR INFECTION (Pending) at the request of Dr.Lucas Percy Richardson for consultation. My final recommendation will be communicated back to the requesting physician by way of shared medical record or letter. Subjective The patient has the following: ACTIVE PROBLEM LIST Post Traumatic Seizure Disorder (Hcc) Left Lower Quadrant Abdominal Pain Morbid Obesity (Hcc) Tobacco Use COVID-19 Immunization Status Overdue - Covid-19 Vaccine ( season) Overdue since 02/14/2023 04/30/2021 Imm Admin: COVID-19 original vaccine, full dose, monovalent (MODERNA) 10/05/2020 Imm Admin: COVID-19 original vaccine, full dose, monovalent (MODERNA) 09/06/2020 Imm Admin: COVID-19 original vaccine, full dose, monovalent (MODERNA) Only the first 3 history entries have been loaded, but more history exists. CHIEF COMPLAINT: Pre-op exam HPI: Patrick Koroma is a 43 year old male who presents for pre-anesthesia consultation. Patient has a history of left sided abdominal pain. Patient is s/p 3 hernia repairs, most recently 07/2022.Above procedure is recommended to manage symptoms. Patient is scheduled for surgery on 10/07/2023. REVIEW OF SYSTEMS: General: No weight loss, malaise or fevers. Neurological: Positive for: seizures. Respiratory: Positive for: tobacco use. Cardiovascular: No history of HTN requiring medication, no history of angina, CHF, CO, cardiac surgery or stents. Denies rest pain, gangrene or revascularization/amputation for PVD. No history of cardiovascular symptoms or problems. GI: See HPI. : No history of dysuria, frequency or incontinence, stones or chronic kidney disease. No difficulty urinating, nocturia > 1 time per night or hematuria. Endocrine: No history of diabetes. Has not taken steroids within the past 30 days. No history of endocrinological symptoms or problems. Hematology: No history of bleeding or clotting disorder. Patient is not taking anti-coagulation or platelet medications. No history of hematological symptoms or problems. Oncology: No history of CA metastasis, chemo within 30 days, or radiotherapy within 90 days. No history of oncological symptoms or problems. Psych: No history of psychiatric symptoms or problems. Musculoskeletal: Negative for joint pain or swelling, back pain or muscle pain. Skin: Negative for lesions, rash and itching. 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 (HCC) 2003 Subdural hematoma (HCC) 2003 Hit with a door Tobacco use 09/16/2023 PAST SURGICAL HISTORY Procedure Laterality Date APPENDECTOMY 2001 COLONOSCOPY SCREENING PAST SURGICAL HISTORY OF N/A 09/2018 Hernia PAST SURGICAL HISTORY OF N/A 11/22/2021 Hernia x2 FAMILY HISTORY Problem Relation Age of Onset Anesthesia Problems No Family History Social History Tobacco Use Smoking status: Every Day Packs/day: 1.00 Years: 35.00 Additional pack years: 0.00 Total pack years: 35.00 Types: Cigarettes Smokeless tobacco: Never Tobacco comments: Currently smokes 0.5 ppd Vaping Use Vaping Use: Never used Substance Use Topics Alcohol use: No Comment: rare Drug use: Not Currently Comment: Quit in High school Prior to Admission medications as of 09/16/23 1224 Medication Sig Last Dose Taking gabapentin (NEURONTIN) 300 mg capsule Take 1 capsule by mouth three times a day for 90 days. TakingYes No medication comments found. ALLERGIES Allergen Reactions Adhesive Tape-Silic* Hives Keflex [Cephalexin] Hives Keppra [Levetiracet* Hives Morphine Anaphylaxis Naproxen Hives Objective PHYSICAL EXAM: General: alert and oriented, healthy appearance and morbidly obese. Pertinent negatives noted - notdistressed. Skin: normal color, no rash or lesions. HEENT: EOM intact and pupils equal round. Cardiovascular: regular rate and rhythm, normal S1 and S2, no rub, murmurs, or gallop. Respiratory: normal breath sounds, no wheezes or crackles. No chest wall deformity or tenderness. Abdomen: bowel sounds present. Extremities: no deformity, no edema or tenderness, no joint swelling or clubbing. Neurological: normal cognition and motor skills. PAIN ASSESSMENT: Pain Pain Level: 8 Pain Location: Abdomen-Mid Lower Description: Sharp Duration Units: Months Frequency: Continuous VITALS: BP 143/86 Pulse 101 Temp (Src) 98.5 (Temporal) Ht 6' 2 (1.88m) Wt 358 lb 14.5 oz (162.8kg) SpO2 98% BMI 46.06 kg/(m^2). Diagnostic tests reviewed for today's visit: Lab Value Units Date High Low HB No results within date range. HCT No results within date range. WBC No results within date range. PLT No results within date range. NA No results within date range. K No results within date range. GLUC No results within date range. BUN No results within date range. CREAT No results within date range. PTSEC No results within date range. INR No results within date range. APTT No results within date range. ALT No results within date range. AST No results within date range. TBILI No results within date range. TSH No results within date range. Lab Value Units Date High Low HCGQT No results within date range. UHCG No results within date range. HCG, BODY* No results within date range. Lab Value Units Date High Low ABORHD No results within date range. ABSCREEN No results within date range. No results found for: HBA1C Recent Results (from the past 8760 hour(s)) ECG COMPLETE Collection Time: 09/16/23 12:20 PM Result Value Ventricular Rate 96 Atrial Rate 96 P-R Interval 136 QRS Duration 94 QT Interval 362 QTC Calculation (Bazett) 457 Calculated P [place] 30 Calculated R [place] 19 Calculated T [place] 18 Impression NORMAL SINUS RHYTHM NORMAL ECG No results found for this or any previous visit (from the past 62539 hour(s)). Instructions Given to Patient: Instructions located in the after visit summary. Patient given verbal and written preop instructions and voices comprehension and compliance. SIGNATURE: Diana Graham PA-C PATIENT NAME: Patrick Koroma DATE: September 15, 2023 TIME: 1:59 PM PAGER/CONTACT #: documented in this encounterPrem[facility]04-01-[facility] Instructions* Patient Instructions* Diana Graham PA-C - 09/15/2023 1:58 PM EDT PATIENT PREOPERATIVE INSTRUCTIONS Jese Richardson* has scheduled you for your procedure at this surgery center: [facility] Scheduling Office: [phone] --[address] [place] [address]. Please read below carefully for your personalized instructions. Dietary Restrictions: - No solid food after midnight. - You may have 12 ounces of clear liquids (water, clear juices such as apple juice or gatorade, carbonated beverages, clear tea, black coffee, jello) until 2 hours before scheduled arrival at facility. Medications: Unless instructed differently below, stay on all of your medications until your surgery. If you start any new medications after today's visit, please contact your surgeon. Pre-Surgery Med Instructions Medication Instructions gabapentin (NEURONTIN) 300 mg capsule Take the day of surgery with a small sip of water If you take any medications for erectile dysfunction-Cialis (Tadalafil), Levitra, Staxyn (Vardenafil) Viagra (Sildenenafil please do not take these for 48 hours before surgery. If you start any new medications after today's visit, please contact the surgeon's office. Blood Thinning Medications: - Stop NSAIDS (Ibuprofen, Advil, Aleve, Motrin, Celebrex, Mobic, etc.) 7 days before surgery, as directed by your surgeon. - Stop Aspirin 7 days before surgery, as directed by your surgeon. - Stop Vitamin E, ALL multi-vitamins, herbals and dietary supplements 7 days before surgery. - You may take Tylenol (Acetaminophen) or any of your pain medications that do not contain aspirin or NSAIDS as needed. Important Reminders: - Candy, mints, and tobacco products are NOT permitted the morning of surgery. - Hearing aids, dentures and glasses may be worn the morning of surgery. - NO jewelry, body piercings, makeup, hairpins or contacts are to be worn the day of surgery. If you develop symptoms such as a fever, cold, or flu, or have other changes to your health within TWO DAYS of scheduled surgery or the morning of surgery, please contact the surgery center above. Personal Belongings: -Please have photo ID and insurance cards. -If you do not have a copy of advance directives on file with us, please bring a copy with you on the day of surgery. - Leave ALL valuables and money at home or with family members. For Outpatient Procedures: - YOU MUST HAVE A RESPONSIBLE FACE CLEANER TAKE YOU HOME. A BERRY PLANTER OR TICKER INSTALLER CANNOT BE MADE A RESPONSIBLE FACE CLEANER. - We recommend that a responsible person stays with you overnight to take care of you. - You cannot stay in a hotel alone after outpatient surgery. You will not be permitted to have yoursurgery, if you do not have someone to take care of you. Arrival Time for Surgery: - To obtain your arrival time for surgery, call your physician's office the day before your surgery. - If your surgery is scheduled for Friday, call the Friday before. Your surgeon s cord cutter will tell you what time to call the office. - If you have not reached the departmental cord cutter by 5 P.M., call [phone] after 5 P.M. the day before your surgery. Please be aware that emergency situations arise, which may delay or change your surgical time. If this happens, we will notify you as soon as possible and regret any inconvenience. If you already have an Advance Directive, please fax a copy to [phone] or email to for it to be added to your chart. If you do not have an Advance Directive, you can find the appropriate form and more information at [email or web address]. We recommend that youcomplete the Advance Directive form found on the website and bring it with you the day of your surgery. It can be witnessed and scanned into your chart that day. Diana Graham PA-C documented in this encounterPremier [facility]03-28-[facility]24 Hospital Discharge instructions Patient Education 09/11/2023 18:40:07 Abdominal Pain Abdominal Pain Abdominal pain is pain in the stomach or belly area. Everyone has this pain from time to time. In many cases it goes away on its own. But abdominal pain can sometimes be due to a serious problem, such as appendicitis. So it s important to know when to get help. Causes of abdominal pain There are many possible causes of abdominal pain. Common causes in adults include: Constipation, diarrhea, or gas Stomach acid flowing back up into the esophagus (acid reflux or heartburn) Severe acid reflux, called GERD (gastroesophageal reflux disease) A sore in the lining of the stomach or small intestine (peptic ulcer) Inflammation of the gallbladder, liver, or pancreas Gallstones or kidney stones Appendicitis Intestinal blockage An internal organ pushing through a muscle or other tissue (hernia) Urinary tract infections In women, menstrual cramps, fibroids, ovarian cysts, pelvic inflammatory disease, or endometriosis Inflammation or infection of the intestines, including Crohn's disease and ulcerative colitis Irritable bowel syndrome Diagnosing the cause of abdominal pain Your healthcare provider will give you a physical exam help find the cause of your pain. If needed,you will have tests. Belly pain has many possible causes. So it can be hard to find the reason for your pain. Giving details about your pain can help. Tell your provider where and when you feel the pain, and what makes it better or worse. Also let your provider know if you have other symptoms such as: Fever Tiredness Upset stomach (nausea) Vomiting Changes in bathroom habits Blood in the stool or black, tarry stool Weight loss that you can't explain (involuntary weight loss?) Also report any family history of stomach or intestinal problems, or cancers. Tell your provider about all your alcohol use and drug use. Tell your provider about all medicines you use, including herbs, vitamins, and supplements. Treating abdominal pain Some causes of pain need emergency medical treatment right away. These include appendicitis or a bowel blockage. Other problems can be treated with rest, fluids, or medicines. Your healthcare provider can give you specific instructions for treatment or self-care based on what is causing your pain. If you have vomiting or diarrhea, sip water or other clear fluids. When you are ready to eat solid foods again, start with small amounts of igry-kh-fxbpla, low- fat foods. These include apple sauce, toast, or crackers. When to get medical care Call 911 or go to the hospital right away if you: Can t pass stool and are vomiting Are vomiting blood or have bloody diarrhea or black, tarry diarrhea Have chest, neck, or shoulder pain Feel like you might pass out Have pain in your shoulder blades with nausea Have sudden, severe belly pain Have new, severe pain unlike any you have felt before Have a belly that is rigid, hard, and hurts to touch Call your healthcare provider if you have: Pain for more than 5 days Bloating for more than 2 days Diarrhea for more than 5 days A fever of 100.4 F (38 C) or higher, or as directed by your healthcare provider Pain that gets worse Weight loss for no reason Continued lack of appetite Blood in your stool How to prevent abdominal pain Here are some tips to help prevent abdominal pain: Eat smaller amounts of food at each meal. Don't eat greasy, fried, or other high-fat foods. Don't eat foods that give you gas. Exercise regularly. Drink plenty of fluids. To help prevent GERD symptoms: Quit smoking. Reduce alcohol and foods that increase stomach acid. Don't use aspirin or umbt-cbc-dimonbu pain and fever medicines, if possible. This includes nonsteroidal anti-inflammatory drugs (NSAIDs). Lose excess weight. Finish eating at least 2 hours before you go to bed or lie down. Raise the head of your bed. [id number] [employer]. [address] [place] [address], [place] [address]. All rights reserved. This information is not intended as a substitute for professional medical care. Always follow yourhealthcare professional's instructions. Follow Up Care 09/11/2023 18:01:14 With:VIOLA STARKEY Address: [address] [place] [phone] When:2-4 days [facility] Bernadine 03-28-2024 Note Discharge Instructions Thank you for allowing [facility] to assist you with your healthcare needs. The following is importantdischarge information regarding your hospital visit. Diagnosis from Today's Visit Abdominal pain Abdominal pain What to Do Next Instructions from Your Care Team No qualifying data available. Post Acute Orders No qualifying data available. You Need to Schedule the Following Appointments Follow Up with VIOLA STARKEY When Within 2-4 days Where: [address] [place] [id number] [phone] Allergies Keflex Keppra (Rash) Tape, Paper (Rash) morphine (Rash) naproxen Medications Please ask your primary doctor or pharmacist before taking any other medication not listed, including over the counter drugs, herbal medications, vitamins and or supplements as they may interact withyour home medications. What How Much When Why Instructions Last Dose New acetaminophen-oxyCODONE (Percocet 5 mg-325 mg oral tablet) 1 tab(s) by mouth Every 6 hours as needed for for pain Abdominal pain Duration: 3 Days Printed Prescription Unchanged gabapentin (Neurontin 800 mg oral tablet) 1 tab(s) by mouth Three (3) times a day Please take this list to your next doctor s visit. Bring all medications you take, including over the counter medications, herbals and other supplements with you to your doctor s visit. Patients and families are reminded to discard old lists and to update any records with all medication providers or retail pharmacies. Education Materials Abdominal Pain Abdominal pain is pain in the stomach or belly area. Everyone has this pain from time to time. In many cases it goes away on its own. But abdominal pain can sometimes be due to a serious problem, such as appendicitis. So it s important to know when to get help. Causes of abdominal pain There are many possible causes of abdominal pain. Common causes in adults include: Constipation, diarrhea, or gas Stomach acid flowing back up into the esophagus (acid reflux or heartburn) Severe acid reflux, called GERD (gastroesophageal reflux disease) A sore in the lining of the stomach or small intestine (peptic ulcer) Inflammation of the gallbladder, liver, or pancreas Gallstones or kidney stones Appendicitis Intestinal blockage An internal organ pushing through a muscle or other tissue (hernia) Urinary tract infections In women, menstrual cramps, fibroids, ovarian cysts, pelvic inflammatory disease, or endometriosis Inflammation or infection of the intestines, including Crohn's disease and ulcerative colitis Irritable bowel syndrome Diagnosing the cause of abdominal pain Your healthcare provider will give you a physical exam help find the cause of your pain. If needed,you will have tests. Belly pain has many possible causes. So it can be hard to find the reason for your pain. Giving details about your pain can help. Tell your provider where and when you feel the pain, and what makes it better or worse. Also let your provider know if you have other symptoms such as: Fever Tiredness Upset stomach (nausea) Vomiting Changes in bathroom habits Blood in the stool or black, tarry stool Weight loss that you can't explain (involuntary weight loss?) Also report any family history of stomach or intestinal problems, or cancers. Tell your provider about all your alcohol use and drug use. Tell your provider about all medicines you use, including herbs, vitamins, and supplements. Treating abdominal pain Some causes of pain need emergency medical treatment right away. These include appendicitis or a bowel blockage. Other problems can be treated with rest, fluids, or medicines. Your healthcare provider can give you specific instructions for treatment or self-care based on what is causing your pain. If you have vomiting or diarrhea, sip water or other clear fluids. When you are ready to eat solid foods again, start with small amounts of wmno-oz-dswarj, low- fat foods. These include apple sauce, toast, or crackers. When to get medical care Call 911 or go to the hospital right away if you: Can t pass stool and are vomiting Are vomiting blood or have bloody diarrhea or black, tarry diarrhea Have chest, neck, or shoulder pain Feel like you might pass out Have pain in your shoulder blades with nausea Have sudden, severe belly pain Have new, severe pain unlike any you have felt before Have a belly that is rigid, hard, and hurts to touch Call your healthcare provider if you have: Pain for more than 5 days Bloating for more than 2 days Diarrhea for more than 5 days A fever of 100.4 F (38 C) or higher, or as directed by your healthcare provider Pain that gets worse Weight loss for no reason Continued lack of appetite Blood in your stool How to prevent abdominal pain Here are some tips to help prevent abdominal pain: Eat smaller amounts of food at each meal. Don't eat greasy, fried, or other high-fat foods. Don't eat foods that give you gas. Exercise regularly. Drink plenty of fluids. To help prevent GERD symptoms: Quit smoking. Reduce alcohol and foods that increase stomach acid. Don't use aspirin or mwjs-ejo-bzshvkb pain and fever medicines, if possible. This includes nonsteroidal anti-inflammatory drugs (NSAIDs). Lose excess weight. Finish eating at least 2 hours before you go to bed or lie down. Raise the head of your bed. 3904-8323 [employer]. [address] [place] [address]. All rights reserved. This information is not intended as a substitute for professional medical care. Always follow yourhealthcare professional's instructions. Additional Information VACCINATE! IT SAVES LIVES! Members of the community who have not yet received the COVID-19 vaccine and would like to receive it can visit one of [facility] vaccine clinics. There are many vaccine clinic locations within the [facility]. For locations and available times, please visit [email or web address] It is important to note that some COVID mobile vaccine clinics are held outdoors and may be canceled in rainy or stormy conditions. To learn more about pediatric vaccinations (ages 5-11), we invite you to visit the [facility] webpage. [email or web address] learn more about the COVID-19 vaccine, we invite you to visit the CDC website for a list of frequently asked questions. https://www.cdc.gov/coronavirus/2019-ncov/vaccines/faq.html [facility] Patient Portal Access Instructions: Stay connected with your healthcare team and access your personal medical information anytime with the [facility] Patient Portal. If you would like a full copy of your medical records please contact the [facility] Medical Records Department Friday through G[employer] between 8a.m. and 4:30p.m. Please follow the directions below to access the portal: 1.Access the email account you provided upon registration to the [facility].2.Look for an invitation email from [facility].3.Open the email and access the invitation link: Accept Invitation to [employer]4.Fill in the required vegas to create your account. Sign into [email or web address] with your username and password that you created in the above steps to stay up to date. You can then view a summary of results, a summary of your visits, and the ability to download your summaries to your computer or send the information securely to a physician. Remember that your healthcare information is confidential, so carefully consider who you will allow to register on the [facility] Patient Portal for access to your information. You can also access the [employer] Patient Portal on the [employer]. Simply click on Health Records under [employer] and then click on the [employer] logo. HOW TO SAFELY DISPOSE OF PRESCRIPTION MEDICATIONS Please use one of the following methods to safely dispose of your unused medications. 1.Use a drug disposal kit: the drug disposal pouch allows you to safely discard your old and unuseddrugs. Ask your nurse to give you one when you are discharged.2.Visit a local take-back location: Many local pharmacies and police departments have programs that collect old and unwanted prescriptiondrugs. Call your local pharmacy or go to http://bit.ly/5S1Al3y to find one close to you.3.Make use of household items: Use cat litter or old coffee grounds to dispose medications if other options arenot available. Mix your drugs with these household products, seal them in an airtight container andthrow it into the garbage. Call [facility]: [phone] to be sure your drugs can be disposed of in this way. Some medicines may require a different approach.4.Never flush your medications down the toilet. IF YOU HAVE BEEN PRESCRIBED AN OPIOIDS FOR PAIN If you have been prescribed an opioid (such as hydrocodone, oxycodone or morphine), it is critical to understand the possible side effects and risks of opioid pain medications. Even when taken as directed, opioids can have several side effects including: Tolerance, meaning you might need to take more of a medication for the same pain relief. Nausea, vomiting and/or constipation. Sleepiness, dizziness, dry mouth, confusion, depression or itching. Physical dependence, meaning you have withdrawal symptoms when a medication is stopped ? this can develop within a few days. KNOW YOUR RESPONSIBILITIES It is important to know exactly how much and how often to take the opioid pain medications you are prescribed. Never take opioids in higher amounts or more often than prescribed. Do not combine opioids with alcohol or other drugs that cause drowsiness, such as benzodiazepines, also known as benzos,including diazepam and alprazolam, muscle relaxants or sleep aids. Never sell or share prescriptionopioids. This is illegal. Store opioids in a secure place and out of reach of others (including children, family, friends and visitors). The last page(s) of this document has been signed and retained as a CHART COPY Signatures Patient Education Materials Abdominal Pain Medication Leaflets My discharge plan and instructions have been reviewed and explained to me and I,PATRICK KOROMA understand my current condition and have read and understand these discharge instructions. I have received a written copy of the plan/instructions. If I have questions, I am aware that I should contact my doctor. Patient/Mica Miner Signature: Date/Time: Relationship to Patient: Witness Name/Signature: Date/Time: [facility] [id number] Evaluation + Plan noteExtracted from: Title:Clinical Document Author:REYES MOORE ate:08/27/23 [place] ADMISSION HISTORY AN D PHYSICIAL CHIEF COMPLAINT: Colorectal cancer screening HISTORY OF PRESENT ILLNESS: Colorectal cancer screening, high risk, family history of colon cancer REVIEW OF SYSTEMS: Constitutional: denies weight loss Cardiovascular:denies chest pain, palpitations Respiratory:denies shortness of breath Gastrointestinal:no abd pain Musculoskeletal: no arthralgias Skin: no rashes ACTIVE PROBLEMS: (13) Acid reflux (061927125) 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 ([id number]) Electric shock (0462668688) Fall (4752592) Family history of colon cancer (920399921) Full dentures (792545083) Pain in the abdomen (03168233) Postprocedural hematoma of skin and subcutaneous tissue following other procedure (610704052) Screening for colon cancer (694785268) Seizure (419266723) TIA (683771183) Tobacco use (6773733951) Umbilical hernia (5532822518) MEDICATIONS: Active Inpt Meds: None Active PRN Meds: None One Time Meds: None Active IV Meds: None ALLERGIES: (5) Keflex Keppra morphine naproxen Tape, Paper FAMILY HISTORY: SOCIAL HISTORY: PHYSICAL EXAM: VITALS: No Data Available 24 Hr Tmax: No Data Available 36 Hr Tmax: No Data Available Vital Signs are the last 5 in the past 48 hours. Weights display the last 5 within 7 days. Initial Wt: No Data Available Current Wt: No Data Available physical exam alert and oriented cardio; regular without murmur pulm; clear abd; soft, nontender LABS: No 36hr Lab Data DIAGNOSTICS: IMPRESSION: Colorectal cancer screening, high risk PLAN: Proceed with colonoscopy as discussed in the office Future Scheduled Tests Laboratory* Thyroid Stimulating Hormone 08/07/23 * Complete Blood Count 08/07/23 * Lipid Profile 08/07/23 * Hepatitis C Antibody IgG 08/07/23 * Complete Metabolic Panel 08/07/23 [facility] 03-13-2024 Hospital Discharge instructions Patient Education 08/27/2023 10:26:40 Monitored Anesthesia Care, Care After Monitored Anesthesia Care, Care After These instructions provide you with information about caring for yourself after your procedure. Your health care provider may also give you more specific instructions. Your treatment has been plannedaccording to current medical practices, but problems sometimes occur. Call your health care provider if you have any problems or questions after your procedure. What can I expect after the procedure? After your procedure, you may: Feel sleepy for several hours. Feel clumsy and have poor balance for several hours. Feel forgetful about what happened after the procedure. Have poor judgment for several hours. Feel nauseous or vomit. Have a sore throat if you had a breathing tube during the procedure. Follow these instructions at home: For at least 24 hours after the procedure: Have a responsible adult stay with you. It is important to have someone help care for you until youare awake and alert. Rest as needed. Do not: ?Participate in activities in which you could fall or become injured. ?Drive. ?Use heavy machinery. ?Drink alcohol. ?Take sleeping pills or medicines that cause drowsiness. ?Make important decisions or sign legal documents. ?Take care of children on your own. Eating and drinking Follow the diet that is recommended by your health care provider. If you vomit, drink water, juice, or soup when you can drink without vomiting. Make sure you have little or no nausea before eating solid foods. General instructions Take dzbl-rkn-vffhajj and prescription medicines only as told by your health care provider. If you have sleep apnea, surgery and certain medicines can increase your risk for breathing problems. Follow instructions from your health care provider about wearing your sleep device: ?Anytime you are sleeping, including during daytime naps. ?While taking prescription pain medicines, sleeping medicines, or medicines that make you drowsy. If you smoke, do not smoke without supervision. Keep all follow-up visits as told by your health care provider. This is important. Contact a health care provider if: You keep feeling nauseous or you keep vomiting. You feel light-headed. You develop a rash. You have a fever. Get help right away if: You have trouble breathing. Summary For several hours after your procedure, you may feel sleepy and have poor judgment. Have a responsible adult stay with you for at least 24 hours or until you are awake and alert. This information is not intended to replace advice given to you by your health care provider. Make sure you discuss any questions you have with your health care provider. Document Released: 09/22/2016 Document Revised: 08/31/2018 Document Reviewed: 09/22/2016 [employer] Patient Education 2020 [employer]. 08/27/2023 10:26:35 Colonoscopy, Adult, Care After Colonoscopy, Adult, Care After This sheet gives you information about how to care for yourself after your procedure. Your health care provider may also give you more specific instructions. If you have problems or questions, contact your health care provider. What can I expect after the procedure? After the procedure, it is common to have: A small amount of blood in your stool for 24 hours after the procedure. Some gas. Mild abdominal cramping or bloating. Follow these instructions at home: General instructions For the first 24 hours after the procedure: ?Do not drive or use machinery. ?Do not sign important documents. ?Do not drink alcohol. ?Do your regular daily activities at a slower pace than normal. ?Eat soft, xxkr-em-htqynl foods. Take tazm-enp-qazpcou or prescription medicines only as told by your health care provider. Relieving cramping and bloating Try walking around when you have cramps or feel bloated. Apply heat to your abdomen as told by your health care provider. Use a heat source that your healthcare provider recommends, such as a moist heat pack or a heating pad. ?Place a towel between your skin and the heat source. ?Leave the heat on for 20 30 minutes. ?Remove the heat if your skin turns bright red. This is especially important if you are unable to feel pain, heat, or cold. You may have a greater risk of getting burned. Eating and drinking Drink enough fluid to keep your urine pale yellow. Resume your normal diet as instructed by your health care provider. Avoid heavy or fried foods thatare hard to digest. Avoid drinking alcohol for as long as instructed by your health care provider. Contact a health care provider if: You have blood in your stool 2 3 days after the procedure. Get help right away if: You have more than a small spotting of blood in your stool. You pass large blood clots in your stool. Your abdomen is swollen. You have nausea or vomiting. You have a fever. You have increasing abdominal pain that is not relieved with medicine. Summary After the procedure, it is common to have a small amount of blood in your stool. You may also have mild abdominal cramping and bloating. For the first 24 hours after the procedure, do not drive or use machinery, sign important documents, or drink alcohol. Contact your health care provider if you have a lot of blood in your stool, nausea or vomiting, a fever, or increased abdominal pain. This information is not intended to replace advice given to you by your health care provider. Make sure you discuss any questions you have with your health care provider. Document Released: 01/14/2005 Document Revised: 03/25/2018 Document Reviewed: 08/13/2016 [employer] Patient Education 2020 [employer]. Follow Up Care 08/22/2023 07:36:51 With:REYES MOORE DO, Clinical Gastroenterology Address: [address] [place] [address] [place] [address] [phone] When:Within 1 Year(s) Comments:Repeat colonoscopy in 1 year. Will need extra bowel prep. With:VIOLA STARKEY Address: [address] [place] [phone] When: [facility] 03-13-2024 Note Discharge Instructions Thank you for allowing [facility] to assist you with your healthcare needs. The following is importantdischarge information regarding your hospital visit. Your Care Team VIOLA STARKEY Dr. What to do next Instructions From Your Doctor Colonoscopy in 1 year; will need further given residual stool this year Follow Up Appointments Follow Up with REYES MOORE DO, Clinical Gastroenterology When In 1 year Why: Repeat colonoscopy in 1 year. Will need extra bowel prep. Where: [address] [place] [phone] Follow Up with VIOLA STARKEY When Where: [address] [place] [phone] The Following Activity and Diet Have Been Ordered for You Discharge Activity - Ordered -- Driving Restricted, No driving until tomorrow, 08/27/23 8:55:00 EDT Discharge Return to Work, School, or Sports (Discharge Return to status) - Ordered -- May return to: work, 08/27/23 8:55:00 EDT Discharge Diet - Ordered -- Type of Diet: Regular Diet, 08/27/23 8:55:00 EDT Allergies Keflex Keppra (Rash) Tape, Paper (Rash) morphine (Rash) naproxen Medications Please ask your primary doctor or pharmacist before taking any other medication not listed, including over the counter drugs, herbal medications, vitamins and or supplements as they may interact withyour home medications. What How Much When Instructions Last Dose Unchanged gabapentin (Neurontin 800 mg oral tablet) 1 tab(s) by mouth Three (3) times a day Please take this list to your next doctor s visit. Bring all medications you take, including over the counter medications, herbals and other supplements with you to your doctor s visit. Patients and families are reminded to discard old lists and to update any records with all medication providers or retail pharmacies. Education Materials Monitored Anesthesia Care, Care After These instructions provide you with information about caring for yourself after your procedure. Your health care provider may also give you more specific instructions. Your treatment has been plannedaccording to current medical practices, but problems sometimes occur. Call your health care provider if you have any problems or questions after your procedure. What can I expect after the procedure? After your procedure, you may: Feel sleepy for several hours. Feel clumsy and have poor balance for several hours. Feel forgetful about what happened after the procedure. Have poor judgment for several hours. Feel nauseous or vomit. Have a sore throat if you had a breathing tube during the procedure. Follow these instructions at home: For at least 24 hours after the procedure: Have a responsible adult stay with you. It is important to have someone help care for you until youare awake and alert. Rest as needed. Do not: ? Participate in activities in which you could fall or become injured. ? Drive. ? Use heavy machinery. ? Drink alcohol. ? Take sleeping pills or medicines that cause drowsiness. ? Make important decisions or sign legal documents. ? Take care of children on your own. Eating and drinking Follow the diet that is recommended by your health care provider. If you vomit, drink water, juice, or soup when you can drink without vomiting. Make sure you have little or no nausea before eating solid foods. General instructions Take dhqi-qkc-addsmlt and prescription medicines only as told by your health care provider. If you have sleep apnea, surgery and certain medicines can increase your risk for breathing problems. Follow instructions from your health care provider about wearing your sleep device: ? Anytime you are sleeping, including during daytime naps. ? While taking prescription pain medicines, sleeping medicines, or medicines that make you drowsy. If you smoke, do not smoke without supervision. Keep all follow-up visits as told by your health care provider. This is important. Contact a health care provider if: You keep feeling nauseous or you keep vomiting. You feel light-headed. You develop a rash. You have a fever. Get help right away if: You have trouble breathing. Summary For several hours after your procedure, you may feel sleepy and have poor judgment. Have a responsible adult stay with you for at least 24 hours or until you are awake and alert. This information is not intended to replace advice given to you by your health care provider. Make sure you discuss any questions you have with your health care provider. Document Released: 09/22/2016 Document Revised: 08/31/2018 Document Reviewed: 09/22/2016 [employer] Patient Education 2020 [employer]. Colonoscopy, Adult, Care After This sheet gives you information about how to care for yourself after your procedure. Your health care provider may also give you more specific instructions. If you have problems or questions, contact your health care provider. What can I expect after the procedure? After the procedure, it is common to have: A small amount of blood in your stool for 24 hours after the procedure. Some gas. Mild abdominal cramping or bloating. Follow these instructions at home: General instructions For the first 24 hours after the procedure: ? Do not drive or use machinery. ? Do not sign important documents. ? Do not drink alcohol. ? Do your regular daily activities at a slower pace than normal. ? Eat soft, autu-vs-lwtsaq foods. Take nsst-avo-cgluhqp or prescription medicines only as told by your health care provider. Relieving cramping and bloating Try walking around when you have cramps or feel bloated. Apply heat to your abdomen as told by your health care provider. Use a heat source that your healthcare provider recommends, such as a moist heat pack or a heating pad. ? Place a towel between your skin and the heat source. ? Leave the heat on for 20 30 minutes. ? Remove the heat if your skin turns bright red. This is especially important if you are unable to feel pain, heat, or cold. You may have a greater risk of getting burned. Eating and drinking Drink enough fluid to keep your urine pale yellow. Resume your normal diet as instructed by your health care provider. Avoid heavy or fried foods thatare hard to digest. Avoid drinking alcohol for as long as instructed by your health care provider. Contact a health care provider if: You have blood in your stool 2 3 days after the procedure. Get help right away if: You have more than a small spotting of blood in your stool. You pass large blood clots in your stool. Your abdomen is swollen. You have nausea or vomiting. You have a fever. You have increasing abdominal pain that is not relieved with medicine. Summary After the procedure, it is common to have a small amount of blood in your stool. You may also have mild abdominal cramping and bloating. For the first 24 hours after the procedure, do not drive or use machinery, sign important documents, or drink alcohol. Contact your health care provider if you have a lot of blood in your stool, nausea or vomiting, a fever, or increased abdominal pain. This information is not intended to replace advice given to you by your health care provider. Make sure you discuss any questions you have with your health care provider. Document Released: 01/14/2005 Document Revised: 03/25/2018 Document Reviewed: 08/13/2016 [employer] Patient Education 2020 [employer]. Additional Information VACCINATE! IT SAVES LIVES! Members of the community who have not yet received the COVID-19 vaccine and would like to receive it can visit one of [facility] vaccine clinics. There are many vaccine clinic locations within the [facility]. For locations and available times, please visit [email or web address] It is important to note that some COVID mobile vaccine clinics are held outdoors and may be canceled in rainy or stormy conditions. To learn more about pediatric vaccinations (ages 5-11), we invite you to visit the [facility] webpage. [email or web address] learn more about the COVID-19 vaccine, we invite you to visit the CDC website for a list of frequently asked questions.https://www.cdc.gov/coronavirus/2019-ncov/vaccines/faq.html [employer] Patient Portal Access Instructions: Stay connected with your healthcare team and access your personal medical information anytime with the [employer] Patient Portal. Please follow the directions below to create your [facility] account: 1.Access the email account you provided upon registration to the hospital/physician office.2.Look for an invitation email from [facility].3.Open the email and access the invitation link: AcceptInvitation to [email or web address].4.Fill in the required [place] to create your account. To access your account, visit [email or web address]. Click the blue button labeled Access Patient Portal and then log in with the username and password that you created in the steps above. You will be able to view your test results, lab results, a summary of your visits, upcoming appointments and more. There is also a convenient messaging option where you can send secure messages to your p rovider. In addition, you will have the ability to download any documents or summaries to your computer and/or send the information securely to a physician. Remember that your healthcare information is confidential, so carefully consider who you will allowto register on the [facility] [employer] Patient Portal for access to your information. You can also access the [facility] [employer] Patient Portal on the [facility] yen. Simply click on Patient Portal and then log into your account. If you would like to receive a full copy of your medical records, please contact the [facility] Medical Records Department by calling [phone], Friday through Friday between 8 a.m. and 4:30 p.m. HOW TO SAFELY DISPOSE OF PRESCRIPTION MEDICATIONS Please use one of the following methods to safely dispose of your unused medications. 1.Use a drug disposal kit: the drug disposal pouch allows you to safely discard your old and unuseddrugs. Ask your nurse to give you one when you are discharged.2.Visit a local take-back location: Many local pharmacies and police departments have programs that collect old and unwanted prescriptiondrugs. Call your local pharmacy or go to http://bit.ly/5T2Sq8b to find one close to you.3.Make use of household items: Use cat litter or old coffee grounds to dispose medications if other options arenot available. Mix your drugs with these household products, seal them in an airtight container andthrow it into the garbage. Call [facility]: [phone] to be sure your drugs can be disposed of in this way. Some medicines may require a different approach.4.Never flush your medications down the toilet. IF YOU HAVE BEEN PRESCRIBED AN OPIOID FOR PAIN If you have been prescribed an opioid (such as hydrocodone, oxycodone or morphine), it is critical to understand the possible side effects and risks of opioid pain medications. Even when taken as directed, opioids can have several side effects including: Tolerance, meaning you might need to take more of a medication for the same pain relief. Nausea, vomiting and/or constipation. Sleepiness, dizziness, dry mouth, confusion, depression or itching. Physical dependence, meaning you have withdrawal symptoms when a medication is stopped, can develop within a few days. KNOW YOUR RESPONSIBILITIES It is important to know exactly how much and how often to take the opioid pain medications you are prescribed. Never take opioids in higher amounts or more often than prescribed. Do not combine opioids with alcohol or other drugs that cause drowsiness, such as benzodiazepines, also known as benzos, including diazepam and alprazolam, muscle relaxants or sleep aids. Never sell or share prescription opioids. This is illegal. Store opioids in a secure place and out of reach of others (including children, family, friends and visitors). The last page of this document has been signed and retained as a CHART COPY. Signatures Patient Education Materials Monitored Anesthesia Care, Care After Colonoscopy, Adult, Care After Medication Leaflets My discharge plan and instructions have been reviewed and explained to me and I,PATRICK KOROMA understand my current condition and have read and understand these discharge instructions. I have received a written copy of the plan/instructions. If I have questions, I am aware that I should contact my doctor. Patient/Mica Miner Signature: Date/Time: Relationship to Patient: Witness Name/Signature: Date/Time: [facility]03-13-2024 Anesthesiology Consult note Patient: PATRICK KOROMA Age: 43 years Sex: Male : 1980 Associated Diagnoses: None Author: DARIEL HITCHCOCK Assessment Postanesthesia assessment Vitals: Vital signs from flowsheet : Vital Signs 08/27/2023 10:15 EDT Heart Rate Monitored 86 bpm bpm Respiratory Rate - Anes 13 br/min br/min 08/27/2023 10:10 EDT Heart Rate Monitored 96 bpm bpm Respiratory Rate - Anes 15 br/min br/min Systolic Blood Pressure Non-Invasive 111 mmHg mmHg Diastolic Blood Pressure Non-Invasive 69 mmHg mmHg 08/27/2023 10:05 EDT Heart Rate Monitored 104 bpm bpm Respiratory Rate - Anes 30 br/min br/min Systolic Blood Pressure Non-Invasive 115 mmHg mmHg Diastolic Blood Pressure Non-Invasive 73 mmHg mmHg 08/27/2023 10:03 EDT Systolic Blood Pressure Non-Invasive 107 mmHg mmHg Diastolic Blood Pressure Non-Invasive 71 mmHg mmHg 08/27/2023 10:00 EDT Respiratory Rate - Anes 0 br/min br/min 08/27/2023 9:46 EDT Temperature Temporal Artery 36.5 DegC Apical Heart Rate 95 bpm Respiratory Rate 20 br/min Systolic Blood Pressure Non-Invasive 131 mmHg Diastolic Blood Pressure Non-Invasive 93 mmHg HI 08/27/2023 9:40 EDT Temperature Temporal Artery 36.5 DegC Heart Rate Monitored In Error bpm (In Error) Respiratory Rate In Error br/min (In Error) Systolic Blood Pressure Non-Invasive In Error mmHg (In Error) Diastolic Blood Pressure Non-Invasive In Error mmHg (In Error) 08/27/2023 9:32 EDT Temperature Skin In Error DegC (In Error) Heart Rate Monitored In Error bpm (In Error) Respiratory Rate In Error br/min (In Error) Systolic Blood Pressure Non-Invasive In Error mmHg (In Error) Diastolic Blood Pressure Non-Invasive In Error mmHg (In Error) , Measurements from flowsheet . Mental status: alert & oriented x 4. Respiratory function: respirations are non-labored. Respiratory support: none. CV function: Normal rate. Cardiovascular support: none. Pain. Nausea status: see nursing documentation of medications. Postoperative hydration status: within normal limits. Digitally Signed by DARIEL HITCHCOCK on 08/27/2023 10:18 AM [facility]03-13-2024 Anesthesiology Consult note Patient: PATRICK KOROMA Age: 43 years Sex: Male : 1980 Associated Diagnoses: None Author: DARIEL HITCHCOCK APRN-FARM LOAN INSPECTOR Preoperative Information Time of last solid food intake: 08/27/2023 00:00:00 Time of last clear liquid intake: 08/27/2023 05:30:00 Anesthesia history Patient's history: negative. Family's history: negative. Health Status Allergies: Allergic Reactions (Selected) Severity Not Documented Keflex- No reactions were documented. Keppra- Rash. Morphine- Rash. Naproxen- No reactions were documented. Nonallergic Reactions (Selected) Severity Not Documented Tape, Paper- Rash., Allergies (5) ActiveReaction KeflexNone Documented KeppraRash morphineRash naproxenNone Documented Tape, PaperRash Current medications: (Selected) Inpatient Medications Ordered Lactated Ringers Infusion 1,000 mL: 20 mL/hr, Intravenous Documented Medications Documented Neurontin 800 mg oral tablet: 800 mg, 1 tab(s), Oral, TID, 270 tab(s), 0 Refill(s), Medications (1) Active Scheduled: (0) Continuous: (1) Lactated Ringers 1,000 mL 1,000 mL, Intravenous, 20 mL/hr PRN: (0) Problem list: Medical Pain in the abdomen / SNOMED CT 07971068 / Confirmed Acid reflux / SNOMED CT 749715116 / Confirmed 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 / SNOMED CT [id number] / Confirmed Fall / SNOMED CT 4132560 / Confirmed Family history of colon cancer / SNOMED CT 057156415 / Confirmed Electric shock / SNOMED CT 9435161574 / Confirmed Full dentures / SNOMED CT 047650214 / Confirmed Screening for colon cancer / SNOMED CT 660087048 / Confirmed Postprocedural hematoma of skin and subcutaneous tissue following other procedure / SNOMED CT 708932942 / Confirmed Seizure / SNOMED CT 418009155 / Confirmed TIA / SNOMED CT 099171008 / Confirmed Umbilical hernia / SNOMED CT 0057792219 / Confirmed, Active Problems (13) Acid reflux 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 Electric shock Fall Family history of colon cancer Full dentures Pain in the abdomen Postprocedural hematoma of skin and subcutaneous tissue following other procedure Screening for colon cancer Seizure TIA Tobacco use Umbilical hernia Histories Past Medical History: Active TIA (804582503) Acid reflux (545721797) Seizure (013238147) Family History: Suicide Brother Congenital heart disease Brother Alcohol abuse Father () Stroke Mother Father () Diabetes Father () Colon cancer Father () Procedure history: Laparoscopic repair of recurrent umbilical hernia using synthetic mesh (3756772331) on 07/18/2022 at 42 Years. Comments: 07/23/2022 11:02 LAN - Leslie Boucher LPN OPEN REPAIR OF RECURRENT PERIUMBILICAL HERNIA WITH ANTERIOR COMPONENT SEPARATION WITH ONLAY MESH REPAIR Repair of recurrent ventral hernia (692038619) on 11/22/2021 at 41 Years. History of repair of umbilical hernia (5273994923) in 2019 at 39 Years. Appendectomy (754934087). Drain (46511522). 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 Physical Examination Vital Signs 08/27/2023 9:46 EDT Temperature Temporal Artery 36.5 DegC Apical Heart Rate 95 bpm Respiratory Rate 20 br/min Systolic Blood Pressure Non-Invasive 131 mmHg Diastolic Blood Pressure Non-Invasive 93 mmHg HI 08/27/2023 9:40 EDT Temperature Temporal Artery 36.5 DegC Heart Rate Monitored 75 bpm Respiratory Rate 12 br/min LOW Systolic Blood Pressure Non-Invasive 115 mmHg Diastolic Blood Pressure Non-Invasive 69 mmHg 08/27/2023 9:32 EDT Temperature Skin In Error DegC (In Error) Heart Rate Monitored In Error bpm (In Error) Respiratory Rate In Error br/min (In Error) Systolic Blood Pressure Non-Invasive In Error mmHg (In Error) Diastolic Blood Pressure Non-Invasive In Error mmHg (In Error) Vital Signs(last 24 hrs) Last Charted Heart Rate Clmmwilxu95 bpm (AUG 26 09:40) RXU918 mmHg (AUG 26 09:46) DBPH 93mmHg (AUG 26 09:46) BMI42.04 (AUG 26 09:40) Measurements from flowsheet : Measurements 08/27/2023 9:40 EDT Height 184.5 cm Admission Weight 143.1 kg Weight Method Stated Stanton Body Weight 79.07 kg BSA Admission 2.6 Body Mass Index 42.04 kg/m2 Pain assessment: Pain Assessment 08/27/2023 9:46 EDT Primary Pain Intensity 0 Primary Pain Nonverbal Response Appears restful Pain Scale Type 0-10 Pain scale 08/27/2023 9:40 EDT Primary Pain Intensity 0 Pain Scale Type 0-10 Pain scale 08/27/2023 9:32 EDT Primary Pain Intensity In Error (In Error) Pain Scale Type In Error (In Error) . General: Alert and oriented. Airway: Normal temporomandibular joint mobility, Normal mouth, Normal neck range of motion. Mallampati classification: III (soft palate, base of uvula visible). Dentition Evaluation: No teeth. Respiratory: Respirations are non-labored. Cardiovascular: Normal rate. Neurologic: Alert, Oriented. Review / Management Results review: No qualifying data available , Lab results 08/27/2023 10:04 EDT SN - GCD - ASA Class 3 08/27/2023 10:02 EDT SN - Proc - Anesthesia Type MAC SN - Proc - EBL 0 mL SN - Proc - Actual Procedure COLONOSCOPY 08/27/2023 10:01 EDT SN - PP - Body Position Lateral Right Side-up Standard Intra-op 08/27/2023 10:01 EDT SN - GCD - Post-operative Diagnosis SCREENING SN - GCD - Case Level OPD Level 3 08/27/2023 10:00 EDT SN - CAt - Case Attendee SN - CAt - Case Attendee SN - CAt - Case Attendee SN - CAt - Case Attendee SN - CAt - Case Attendee SN - CAt - Case Attendee SN - CAt - Case Attendee SN - CAt - Case Attendee SN - CAt - Role Performed Primary Surgeon SN - CAt - Role Performed FARM LOAN INSPECTOR SN - CAt - Role Performed Custom Van Converter 1 SN - CAt - Role Performed Scrub 1 08/27/2023 9:54 EDT Continuous IV Infusions LR Hand Left 08/27/2023 22 gauge Peripheral IV Activity: Insert new site Peripheral IV Dressing Activity: Applied, Transparent dressing Peripheral IV Line Status/Patency: Continuous infusion, Good blood return Peripheral IV Site Condition: No complications Peripheral IV Equipment: Extension set Peripheral IV Number of Attempts: 2 Lactated Ringers Injection Begin Bag 1,000 mL mL 08/27/2023 9:46 EDT Temperature Temporal Artery 36.5 DegC Apical Heart Rate 95 bpm Respiratory Rate 20 br/min Systolic Blood Pressure Non-Invasive 131 mmHg Diastolic Blood Pressure Non-Invasive 93 mmHg HI Primary Pain Intensity 0 Primary Pain Nonverbal Response Appears restful Pain Scale Type 0-10 Pain scale Heart Rhythm Regular Cardiac Rhythm Sinus rhythm Monitoring Lead II Respirations Unlabored Respiratory Pattern Regular Oxygen Therapy Room air Oxygen Saturation 98 % Abdomen Description Soft, Rounded Bowel Sounds All Quadrants Present Skin Temperature Warm Skin Description [place], Dry Skin Integrity Intact Skin Moisture General Dry Neurological Language Able to speak clearly Neurological Symptoms Patient denies Extremity Movement Equal Characteristics of Communication Appropriate Characteristics of Speech Clear Level of Consciousness Alert Strength All Extremities Strong Tone All Extremities Normal Sensation All Extremities Intact Affect/Behavior Appropriate, Calm, Cooperative Orientation Oriented x 4 Ann Marie Motor (2) Moves 4 extremities voluntarily or on command Ann Marie Respirations (2) Spontaneous respiration without support, RR > 10 Ann Marie Blood Pressure (2) BP 20% above or below preanesthetic level Ann Marie Pulse (2) Pulse 20% above or below preanesthetic level Ann Marie Oxygen Saturation (2) 94% or more Ann Marie Level of Consciousness (2) Fully awake Ann Marie III Score 12 Positioning Repositions self Activity Status ADL Awake, Resting Standard Safety ID band on, Allergy Band on, Call device within reach, Bed in low position, Wheels locked, Upper/Half-Length side-rails up, Visitor at bedside 08/27/2023 9:44 EDT Urinary Elimination Voiding, no difficulties IV Present Present Allergies Yes Anesthesia Extension Set Applied Yes Labelling Machine Operator On Yes Colon Prep Results Good Consent Form Signed Yes Patient Dressed In Hospital gown, No undergarments Pre-op Preparation Glasses removed Bowel Prep Completed Yes Belongings At Bedside Glasses, Pants, Shirt, Shoes, Socks, Undergarments NPO Status Maintained, Less than 8 hours Allergy Band on and Verified Yes Patient ID Band on and Verified Yes Implants Verified Yes Pacemaker/AICD Verified Yes Site Verified by Patient/Family Yes Blood Consent Signed No Last Fluid Intake 08/27/2023 6:30 Last Food Intake 08/25/2023 18:00 08/27/2023 9:40 EDT Designated Person #1 We May Share RAINE Meyer [phone] Designated Person #1 Relationship Significant other Designated Person #2 We May Share RAINE Almeida [phone] Designated Person #2 Relationship Mother Privacy Restrictions Requested None Height 184.5 cm Admission Weight 143.1 kg Weight Method Stated Stanton Body Weight 79.07 kg BSA Admission 2.6 Body Mass Index 42.04 kg/m2 Temperature Temporal Artery 36.5 DegC Heart Rate Monitored 75 bpm Respiratory Rate 12 br/min LOW Systolic Blood Pressure Non-Invasive 115 mmHg Diastolic Blood Pressure Non-Invasive 69 mmHg Primary Pain Intensity 0 Pain Scale Type 0-10 Pain scale Oxygen Therapy Room air Oxygen Saturation 98 % Status N/A Sensory Deficits None Infectious Disease Symptoms Patient states no symptoms Infectious Disease Recent Exposure No Alcohol and Drug Use No Employee of Institutional Living No Health Care Employee No History of Exposure to TB No History of Positive Chest X-Ray for TB No History of Positive TB Skin Test No Homeless No Known Immunosuppression No Recent Immigrant No Resident of Institutional Living No Bloody Sputum No Fatigue No Fever No Loss of Appetite No Night Sweats No Persistent Cough > 3 Weeks No Weight Loss No Ann Marie Motor (2) Moves 4 extremities voluntarily or on command Ann Marie Respirations (2) Spontaneous respiration without support, RR > 10 Ann Marie Blood Pressure (2) BP 20% above or below preanesthetic level Ann Marie Pulse (2) Pulse 20% above or below preanesthetic level Ann Marie Oxygen Saturation (2) 94% or more Ann Marie Level of Consciousness (2) Fully awake Ann Marie III Score 12 Barriers to Learning None evident Teaching Method Explanation, Printed materials Preferred Spoken Language Jamaican Preferred Written Language Jamaican Information Given by Patient Patient's Current Physicians Patient's Current Physicians Discharge To, Anticipated Home independently Prev Test Positive/Diagnosis w/COVID-19 Yes Previous COVID-19 Positive 2019 Current Quarantine/Isolated any Illness No Any Contact with Sick Animals/Birds No Traveled Anywhere in Last 30 Days No N/A Personal Devices, Patient Valuables Glasses Admission Note-Nursing Procedure/Therapy Intake 08/27/2023 9:39 EDT Forearm Right 08/27/2023 22 gauge Peripheral IV Activity: Assessed Peripheral IV Dressing Condition: Clean, Dry, Intact Peripheral IV Dressing Activity: Reinforced Peripheral IV Line Status/Patency: Continuous infusion Peripheral IV Site Condition: No complications 08/27/2023 9:32 EDT Temperature Skin In Error DegC (In Error) Heart Rate Monitored In Error bpm (In Error) Respiratory Rate In Error br/min (In Error) Systolic Blood Pressure Non-Invasive In Error mmHg (In Error) Diastolic Blood Pressure Non-Invasive In Error mmHg (In Error) Primary Pain Intensity In Error (In Error) Pain Scale Type In Error (In Error) Monitor Alarms In Error (In Error) Nail Bed Color In Error (In Error) Capillary Refill In Error (In Error) Cardiac Rhythm In Error (In Error) Respirations In Error (In Error) Respiratory Pattern In Error (In Error) All Lobes Breath Sounds In Error (In Error) Cough In Error (In Error) Oxygen Therapy In Error (In Error) Oxygen Saturation In Error % (In Error) Oxygen Flow Rate In Error (In Error) Abdomen Description In Error (In Error) Abdomen Palpation In Error (In Error) Passing Flatus In Error (In Error) Bowel Sounds All Quadrants In Error (In Error) All Extremity Description In Error (In Error) Temperature All Extremities In Error (In Error) Neurological Language In Error (In Error) Neurological Symptoms In Error (In Error) Swallowing Difficulty In Error (In Error) Characteristics of Communication In Error (In Error) Characteristics of Speech In Error (In Error) Aspiration Risk In Error (In Error) Strength All Extremities In Error (In Error) Left Upper Extremity Strength In Error (In Error) Right Upper Extremity Strength In Error (In Error) Left Lower Extremity Strength In Error (In Error) Left Upper Extremity Sensation In Error (In Error) Right Upper Extremity Sensation In Error (In Error) Left Lower Extremity Sensation In Error (In Error) Right Lower Extremity Sensation In Error (In Error) Patient Identified In Error (In Error) Arrival Mode In Error (In Error) Position In Error (In Error) Provider Name In Error (In Error) Transported From In Error (In Error) Anesthesia Summary Review In Error (In Error) Surgical Summary Review In Error (In Error) Pertinent PMHx Review In Error (In Error) Type of Provider In Error (In Error) Ann Marie Motor In Error (In Error) Ann Marie Respirations In Error (In Error) Ann Marie Blood Pressure In Error (In Error) Ann Marie Pulse In Error (In Error) Ann Marie Oxygen Saturation In Error (In Error) Ann Marie Level of Consciousness In Error (In Error) Ann Marie III Score In Error (In Error) Orientation Assessment In Error (In Error) Positioning Repositions self Mobility Assistance Level Independent Activity Status ADL Resting Standard Safety In Error (In Error) 08/27/2023 7:00 [facility] History and Physical . Assessment and Plan [place] [employer] Anesthesiologists (ASA) physical status classification: Class III. Anesthetic Preoperative Plan Anesthetic technique: MAC. Informed consent: signed by patient. Digitally Signed by DARIEL HITCHCOCK on 08/27/2023 10:09 AM [facility]03-13-2024 Note [place] ADMISSION HISTORY AND PHYSICIAL CHIEF COMPLAINT: Colorectal cancer screening HISTORY OF PRESENT ILLNESS: Colorectal cancer screening, high risk, family history of colon cancer REVIEW OF SYSTEMS: Constitutional: denies weight loss Cardiovascular:denies chest pain, palpitations Respiratory:denies shortness of breath Gastrointestinal:no abd pain Musculoskeletal: no arthralgias Skin: no rashes ACTIVE PROBLEMS: (13) Acid reflux (608521284) 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 ([id number]) Electric shock (3375563027) Fall (9722128) Family history of colon cancer (579606869) Full dentures (472850022) Pain in the abdomen (79405627) Postprocedural hematoma of skin and subcutaneous tissue following other procedure (529059416) Screening for colon cancer (353356803) Seizure (549463932) TIA (610883570) Tobacco use (9155016064) Umbilical hernia (1731721522) MEDICATIONS: Active Inpt Meds: None Active PRN Meds: None One Time Meds: None Active IV Meds: None ALLERGIES: (5) Keflex Keppra morphine naproxen Tape, Paper FAMILY HISTORY: SOCIAL HISTORY: PHYSICAL EXAM: VITALS: No Data Available 24 Hr Tmax: No Data Available 36 Hr Tmax: No Data Available Vital Signs are the last 5 in the past 48 hours. Weights display the last 5 within 7 days. Initial Wt: No Data Available Current Wt: No Data Available physical exam alert and oriented cardio; regular without murmur pulm; clear abd; soft, nontender LABS: No 36hr Lab Data DIAGNOSTICS: IMPRESSION: Colorectal cancer screening, high risk PLAN: Proceed with colonoscopy as discussed in the office Digitally Signed by REYES MOORE DO on 08/27/2023 07:01 AM [facility]02-22-2024 Evaluation + Plan note Future Scheduled Tests Laboratory* Thyroid Stimulating Hormone 08/07/23 * Complete Blood Count 08/07/23 * Lipid Profile 08/07/23 * Hepatitis C Antibody IgG 08/07/23 * Complete Metabolic Panel 08/07/23 [facility] 02-21-2024 NoteHNO ID: [id number] Author: KELLEY MERAZ APRN.ALMA NOEL Service: ? 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 He was referred by Linda Griffiths CNP (General Surgery) [address] [place] [id number]. This consultation was shared with the referral source via the [facility] electronic medical record. The patient understanding of the reason for referral is to help with the pain. Chief complaints: Constant sharp LUQ pain Aggravating factors: everything Alleviating factors: nothing Current pain level is 7/10. Pain varies from 4-10/10 Present Illness: PMH includes chronic abdominal pain, epilepsy, morbid obesity, nicotine use disorder He is s/p 3 hernia repairs between 2018 and July 2022. Abdominal pain started 6 months ago. Previous pain treatments: medications, surgery 07/07/23 Jese Richardson MD (General Surgery) Patrick Koroma is a 43 year old male who presents with left sided abdominal pain. He had three previous hernia repair, one umbilical without mesh, one lap with mesh, one then as an onlay (last being in Jul 2022, onlay). He had some seroma issues, after requiring perc drain (drain has been out since November 2022). He has no chills, fevers, or erythema. He has no clinical signs of infection. He has a CT reviewed from May 2023, which shows normal post op changes for an onlay, without fluid collections. I dont see any radiographic or clinical signs of a mesh infection. Unsure what's contributing to his pain, but its minimal, and he is able to work without issue. I wouldn't recommend anything at this time, but explained if he starts having wound drainage, redness, or fevers to return to re-evaluate things. He expressed understanding and gratitude. Assessment: Patrick Koroma is a 43 year old male with PMH post traumatic seizure disorder, s/p appendectomy and multiple hernia repair who presents with pain lateral to the hernia repair site Plan: - No signs of infection or inflammation in the left of the abdomen, patient is educated on the s/s of infection - No surgical intervention needed. Mostly neuropathic pain Scheduled for removal of prosthetic material or mesh on 10/07/23 Medication Tried: Membrane stabilizers: gabapentin and carbamazepine for epilepsy NSAID's: Mobic Muscle relaxants: denied Opiates: hydrocodone, oxycodone Benzodiazepines: Ativan Antidepressants: denied Topicals: denied Other: denied Current Medications: Current Outpatient Medications Medication Sig gabapentin (NEURONTIN) 300 mg capsule Take 1 capsule by mouth three times a day for 90 days. No current facility-administered medications for this visit. PDMP website checked and validated. All prescriptions have been APPROPRIATELY filled. No suspicious activity was identified. 08/06/2023 by Kelley Meraz APRN.DOOR CLOSER, DNP Functional Limitations: The patient has been unable to work since March 2023. He spends his days helping his mother and 42 year old brother. Emotional Symptoms include frustration. He denies symptoms of anxiety, depression or suicidal ideation, plan or intent. Sleep is fragmented by pain. Appetite and weight are stable. Non-medical stresses are denied. Family involvement: Mother and fiance are supportive Financial Status: Disability income is denied. Mesh class action suit pending It was explained to patient that our department does not complete disability claim paperwork with the exception of FMLA paperwork while undergoing treatment in the [facility] or during the week of ketamine infusions. Patient-Entered Data: Pain Recovery Scores No Data LBP over last 6 months - Ongoing back pain problem - START back screen total score - START back screen distress score - START back screen risk score - Oswestry disability index score - PCS rumination subscore - PCS magnification subscore - PCS helplessness subscore - PCS total score - No flowsheet data found. No flowsheet data found. No flowsheet data found. No flowsheet data found. 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 (HCC) 2003 Subdural hematoma (HCC) 2003 Hit with a door PAST SURGICAL HISTORY Procedure Laterality Date APPENDECTOMY 2000 PAST SURGICAL HISTORY OF N/A 09/2018 Hernia PAST SURGICAL HISTORY OF N/A 11/22/2021 Hernia Anesthesia: yes Schizophrenia: denied CHF: denied Uncontrolled HT (more content not included)...[facility] 08-06-2023 History of Present illness Narrative* Kelley Meraz APRN.ALMA NOEL - 08/06/2023 9:30 AM EST In-Person Visit Present: patient [facility] August 06, 2023 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 He was referred by Linda Griffiths CNP (General Surgery) [address] [facility] [id number]. This consultation was shared with the referral source via the [facility] electronic medical record. The patient understanding of the reason for referral is to help with the pain. Chief complaints: Constant sharp LUQ pain Aggravating factors: everything Alleviating factors: nothing Current pain level is 7/10. Pain varies from 4-10/10 Present Illness: PMH includes chronic abdominal pain, epilepsy, morbid obesity, nicotine use disorder He is s/p 3 hernia repairs between 2018 and July 2022. Abdominal pain started 6 months ago. Previous pain treatments: medications, surgery 07/07/23 Jese Richardson MD (General Surgery) Patrick Koroma is a 43 year old male who presents with left sided abdominal pain. He had threeprevious hernia repair, one umbilical without mesh, one lap with mesh, one then as an onlay (last being in Jul 2022, onlay). He had some seroma issues, after requiring perc drain (drain has been out since November 2022). He has no chills, fevers, or erythema. He has no clinical signs of infection. He has a CT reviewed from May 2023, which shows normal post op changes for an onlay, without fluid collections. I dont see any radiographic or clinical signs of a mesh infection. Unsure what's contributing to his pain, but its minimal, and he is able to work without issue. I wouldn't recommend anything at this time, but explained if he starts having wound drainage, redness, or fevers to return to re-evaluate things. He expressed understanding and gratitude. Assessment: Patrick Koroma is a 43 year old male with PMH post traumatic seizure disorder, s/pappendectomy and multiple hernia repair who presents with pain lateral to the hernia repair site Plan: - No signs of infection or inflammation in the left of the abdomen, patient is educated on the s/s of infection - No surgical intervention needed. Mostly neuropathic pain Scheduled for removal of prosthetic material or mesh on 10/07/23 Medication Tried: Membrane stabilizers: gabapentin and carbamazepine for epilepsy NSAID's: Mobic Muscle relaxants: denied Opiates: hydrocodone, oxycodone Benzodiazepines: Ativan Antidepressants: denied Topicals: denied Other: denied Current Medications: Current Outpatient Medications Medication Sig gabapentin (NEURONTIN) 300 mg capsule Take 1 capsule by mouth three times a day for 90 days. No current facility-administered medications for this visit. PDMP website checked and validated. All prescriptions have been APPROPRIATELY filled. No suspiciousactivity was identified. 08/06/2023 by Kelley Meraz APRN.DOOR CLOSER, ALMA Functional Limitations: The patient has been unable to work since March 2023. He spends his days helping his mother and 42 year old brother. Emotional Symptoms include frustration. He denies symptoms of anxiety, depression or suicidal ideation, plan or intent. Sleep is fragmented by pain. Appetite and weight are stable. Non-medical stresses are denied. Family involvement: Mother and fiance are supportive Financial Status: Disability income is denied. Mesh class action suit pending It was explained to patient that our department does not complete disability claim paperwork with the exception of FMLA paperwork while undergoing treatment in the [facility] Program or during the week of ketamine infusions. Patient-Entered Data: Pain Recovery Scores No Data LBP over last 6 months - Ongoing back pain problem - START back screen total score - START back screen distress score - START back screen risk score - Oswestry disability index score - PCS rumination subscore - PCS magnification subscore - PCS helplessness subscore - PCS total score - No flowsheet data found. No flowsheet data found. No flowsheet data found. No flowsheet data found. 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 (HCC) 2003 Subdural hematoma (HCC) 2003 Hit with a door PAST SURGICAL HISTORY Procedure Laterality Date APPENDECTOMY 2000 PAST SURGICAL HISTORY OF N/A 09/2018 Hernia PAST SURGICAL HISTORY OF N/A 11/22/2021 Hernia Anesthesia: yes Schizophrenia: denied CHF: denied Uncontrolled HTN: denied Recent CO: denied Arrythmias: denied Afib: denied Hyperthyroid: denied Aortic Stenosis: denied Liver Failure: denied Increased ICP: denied Cystitis: denied Seizure disorder: epilepsy since 2003 head trauma Psychiatric illness: Previous diagnoses: denied Out-Patient Therapy: denied Psychiatric hospital admissions: denied Suicide attempts: denied Self-mutilation: denied Eating disorder: denied Medications tried: denied Substance use: Nicotine: Started smoking at age 8, now smokes a pack every 2 days Alcohol: Always minimal use Recreational drugs: Smoked marijuana in high school. Denies past/current use of other recreational drugs Prescription medications: Denied FAMILY HISTORY: Chronic pain: Mother with back pain Substance use disorders: Father and twin brother with alcoholism Psychiatric illness: Twin brother has threatened suicide when drinking Developmental History: Patient was reared by his mother. He has 7 siblings, one is his identical twin. Nurture was good. Discipline was good. Abuse, somatization, and serious disciplinary problems were denied. There were no major childhood traumatic events. Socialization was good. He served a totalof 6 years in longterm. He dropped out in the 12th grade due to heart attack. Got his GED. 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 He has 3 children. He's been with his fiance for 4 years, she's 26 year old. Mental status: Patient was fully cooperative. Eye contact was good. Affect was euthymic. Speech wasspontaneous and fluent without dysarthria, normal in rate, volume and articulation, and clear, coherent, and relevant. Thoughts were logical and relevant without delusional thinking or hallucinations. Somatic preoccupation was mild. Judgment and insight were good. Attention span and concentration appeared normal. He was oriented to time, place and person. PHYSICAL EXAMINATION: BP 153/101 (BP Site: Left Arm, BP Position: Sitting, BP Cuff Size: Large Adult) Pulse 107 Ht 188 cm (6' 2) Wt (!) 158.8 kg (350 lb) SpO2 98% BMI 44.94 kg/m Impressions: Chronic abdominal pain Treatment Plan: Patient is a 43 year old male with chronic abdominal pain, epilepsy, morbid obesity, nicotine use disorder. He is scheduled for removal of prosthetic material/mesh on 10/07/23. At this time we have nothing to offer. He should proceed with mesh removal next month. Return visit: As needed Maintain contact by phone or MyChart. I have confirmed and edited as necessary, the PFSH and ROS obtained by others. I spent a total of 60 minutes on the date of the service which included preparing to see the patient, [id number] patient care, completing clinical documentation, obtaining and/or reviewing separately obtained history, performing a medically appropriate examination, counseling and educating the pat ient/family/caregiver, and ordering medications, tests, or procedures. Kelley Meraz APRN.ALMA NOEL [facility] NoteHNO ID: [id number] Author: JESE RICHARDSON MD Service: ? Author Type: Physician Type: Progress Notes Filed: 07/07/2023 09:35 Note Text: Consultation requested by Dr. Maddison Martin for an opinion regarding possible mesh infection. My final recommendations will be communicated back to the requesting physician by way of shared medical record or letter via US mail. Patrick Koroma is a 43 year old male who presents with left sided abdominal pain. He had three previous hernia repair, one umbilical without mesh, one lap with mesh, one then as an onlay (last being in Jul 2022, onlay). He had some seroma issues, after requiring perc drain (drain has been out since November 2022). He has no chills, fevers, or erythema. He has no clinical signs of infection. He has a CT reviewed from May 2023, which shows normal post op changes for an onlay, without fluid collections. I dont see any radiographic or clinical signs of a mesh infection. Unsure what's contributing to his pain, but its minimal, and he is able to work without issue. I wouldn't recommend anything at this time, but explained if he starts having wound drainage, redness, or fevers to return to re-evaluate things. He expressed understanding and gratitude. I have seen and evaluated the patient and discussed the case with the resident physician. I agree with the assessment and plan as documented in the resident?s note including a ROS that was reviewed and negative other than what was indicated in our notes. Patient consented for study? [facility] NoteHNO ID: [id number] Author: VIVIANA TERESA MD Service: ? Author Type: Fellow Type: Progress Notes Filed: 07/07/2023 09:35 Note Text: [facility] - HISTORY AND PHYSICAL Chief Complaint: pain to the left of the hernia repair HPI: Patrick Koroma is a 43 year old male with PMH post traumatic seizure disorder, s/p appendectomy and multiple hernia repair who presents with pain lateral to the hernia repair site On 11/22/21 he had a robotic assisted repair of recurrent ventral hernia at [facility] with Dr Aaron Duque with removal of prior mesh, on November 22, 2021. An 11cm circular ventralight ST mesh was inserted into the preperitoneal space. This was complicated by increased discomfort and swelling post op associated with a 12 x 10cm fluid collection concerning for a hematoma. This was aspirated 01/03/[address] Schaefer. He was doing till 07/2022 he had a recurrent and he had an open hernia repair with mesh. He is here today because of pain aquilino the left of the hernia repair, he had a CT scan 06/2023 that showed hematoma. He has seen his Surgeon and he tod him the mesh us infected and he will need abdominal wall reconstruction and refereed him here. 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 Additional family history not relevant to the patient's HPI ALLERGIES Allergen Reactions Adhesive Tape-Silic* Hives Keflex [Cephalexin] Hives Keppra [Levetiracet* Hives Morphine Anaphylaxis Naproxen Hives Current Outpatient Medications Medication Sig Dispense Refill gabapentin (NEURONTIN) 300 mg capsule Take 1 capsule by mouth three times daily for 90 days. 90 capsule 2 carBAMazepine XR (TEGRETOL XR) 400 mg 12 hr tablet Take 1 tablet by mouth twice daily. 60 tablet 2 meloxicam (MOBIC) 15 mg tablet Take 1 tablet by mouth once daily. for pain. Take with food. (Patient not taking: Reported on 01/03/2022 ) 30 tablet 0 methylPREDNISolone (MEDROL DOSE-PACK) 4 mg Dose-Pack As Instructed per package (Patient not taking: Reported on 01/03/2022 ) 1 Package 0 LORazepam (ATIVAN) 0.5 mg tab To take when he thinks he is going to have a seizure. (Patient not taking: Reported on 01/03/2022) 15 tablet 0 No current facility-administered medications for this visit. REVIEW OF SYSTEMS PAIN ASSESSMENT: Negative for pain, history of chronic pain, or current treatment for a chronic pain condition. RESPIRATORY: Negative for cough, hemoptysis, wheezing, COPD, dyspnea or shortness of breath CARDIOVASCULAR: Negative for chest pain, leg swelling, hypertension, CHF or palpitations GI: No nausea, vomiting, or diarrhea The remainder of the 12 review of systems is negative other than what was mentioned in the HPI and above. There were no vitals taken for this visit. Physical findings of this patient are as follows (COMPLETE 10 INCLUDING HEART AND LUNG EXAM OR CHOOSE NORMAL EXAM IF APPROPRIATE): Physical Exam Physical Exam Constitutional: The patient is well-developed, well-nourished, and in no distress. Head: Normocephalic and atraumatic. Eyes: Pupils are equal, round, and reactive to light. EOM are normal. Neck: Normal range of motion. Neck supple. Cardiovascular: Regular rhythm and normal heart sounds. Pulmonary/Chest: Effort normal and breath sounds normal. Abdominal: Softsee hpi. Musculoskeletal: Normal range of motion. Neurological: He is alert. GCS score is 15. Skin: Skin is warm and dry. Psychiatric: Affect and judgment normal. Relevant Hernia Findings - left abdomen TTP LABS: No results found for: HBA1C IMAGING - Reviewed with staff CT - not on file Assessment: Patrick Koroma is a 43 year old male with PMH post traumatic seizure disorder, s/p appendectomy and multiple hernia repair who presents with pain lateral to the hernia repair site Plan: - No signs of infection or inflammation in the left of the abdomen, patient is educated on the s/s of infection - No surgical intervention needed. Mostly neuropathic pain Viviana Teresa, [facility]01-18-2024 Note. MICRO - Microbiology PROCEDURE: Blood Culture (bacterial) [*1] SOURCE: Blood BODY SITE: COLLECTED DATE/TIME: 06/28/2023 14:22 EST RECEIVED DATE/TIME: 06/28/2023 15:50 EST START DATE/TIME: 06/28/2023 15:50 EST FREE TEXT SOURCE: FINAL REPORTS Final Report [] Verified Date/Time/Personnel: 07/03/2023 15:59 EST Blood Culture: No Growth at 5 days. PRELIMINARY REPORTS Preliminary Report [] Verified Date/Time/Personnel: 06/28/2023 16:59 EST Culture has been received in lab and is no growth to date. Routine cultures are held for 5 days. Performing Locations *1: This test was performed at: [address], [facility] , [facility] hospital ([place])07-03-2023 Note. MICRO - Microbiology PROCEDURE: Blood Culture (bacterial) [*1] SOURCE: Blood BODY SITE: COLLECTED DATE/TIME: 06/28/2023 14:22 EST RECEIVED DATE/TIME: 06/28/2023 15:50 EST START DATE/TIME: 06/28/2023 15:50 EST FREE TEXT SOURCE: FINAL REPORTS Final Report [] Verified Date/Time/Personnel: 07/03/2023 15:59 EST Blood Culture: No Growth at 5 days. PRELIMINARY REPORTS Preliminary Report [] Verified Date/Time/Personnel: 06/28/2023 16:59 EST Culture has been received in lab and is no growth to date. Routine cultures are held for 5 days. Performing Locations *1: This test was performed at: [address], [address] [place] [address] ([facility]07-01-2023 Note. MICRO - Microbiology PROCEDURE: Urine Culture [*1] SOURCE: Urine, Clean Catch BODY SITE: COLLECTED DATE/TIME: 06/28/2023 15:36 EST RECEIVED DATE/TIME: 06/29/2023 18:28 EST START DATE/TIME: 06/29/2023 18:28 EST FREE TEXT SOURCE: FINAL REPORTS Final Report [] Verified Date/Time/Personnel: 07/01/2023 07:28 EST No growth at 48 hours. PRELIMINARY REPORTS Preliminary Report [] Verified Date/Time/Personnel: 06/30/2023 08:58 EST No growth to date Performing Locations *1: This test was performed at: [facility], [facility] [address] [place] [address], [id number]- , Critical access hospital ([place])06-28-2023 Hospital Discharge instructions Patient Education 06/28/2023 16:03:23 After Hernia Surgery After Hernia Surgery You can usually go home the same day as surgery. If you had surgery to repair ventral or incisionalhernia, you may need to stay in the hospital overnight. To speed healing, take an active role in your recovery. The tips below can help. Reducing swelling Early on, it s common for the area around your incision to be swollen, bruised, and sore. To reduceswelling, put an ice pack or bag of frozen peas in a thin towel. Place the towel on the swollen area 3 to 5 times a day for 15 to 20 minutes at a time. Managing pain Take any prescribed pain medicines as directed. Be aware that some pain medicines can cause constipation. So your healthcare provider may also suggest a laxative or stool softener. Returning to normal You can return to your normal routine as soon as you feel able. Just take it easy and follow these guidelines: Take short walks to improve circulation. Avoid heavy lifting for at least a week. Ask your healthcare provider when you can drive and return to work. You can have sex again when you feel ready. Follow-up care Be sure to keep all follow-up appointments with your healthcare provider. These ensure you re healing well. During visits, your stitches, zachary, or bandage may be removed. When to call your healthcare provider Call your healthcare provider if you have any of the following: A large amount of swelling or bruising (some testicular swelling and bruising is normal) Fever of 100.4 F (38 C) or higher, or as directed by your healthcare provider Pain, redness, bleeding, or fluid from the incision that gets worse Trouble urinating Constipation Vomiting [id number] [employer]. [address] [place] [address]. All rights reserved. This information is not intended as a substitute for professional medical care. Always follow yourhealthcare professional's instructions. Follow Up Care 06/28/2023 13:49:11 With:AARON DUQUE MD, Surgery Address: [address] [place] [address]- [phone] When:2-4 days With:[facility] Address: [address] [place] [phone] [phone] When:2-4 days [facility] Discharge Instructions Thank you for allowing [facility] to assist you with your healthcare needs. The following is importantdischarge information regarding your hospital visit. Diagnosis from Today's Visit Abdominal pain What to Do Next Instructions from Your Care Team With your PCP in the next 2 to 4 days. Please return to the emergency department if you start experiencing worsening pain. Please return to the emergency department if you start experiencing high fevers. No qualifying data available. Post Acute Orders No qualifying data available. You Need to Schedule the Following Appointments Follow Up with AARON DUQUE MD, Surgery When Within 2-4 days Where: [address] [place] [address] [phone] Follow Up with [facility] When Within 2-4 days Where: [address] [place] [phone] Allergies Keflex Keppra (Rash) Tape, Paper (Rash) morphine (Rash) naproxen Medications Please ask your primary doctor or pharmacist before taking any other medication not listed, including over the counter drugs, herbal medications, vitamins and or supplements as they may interact withyour home medications. What How Much When Why Instructions Last Dose Unchanged carBAMazepine (TEGretol 200 mg oral tablet) 3 tab(s) by mouth Two (2) times a day Seizure Post-operative state s/p umbilical hernia repair, possible seizure following surgery Please take this list to your next doctor s visit. Bring all medications you take, including over the counter medications, herbals and other supplements with you to your doctor s visit. Patients and families are reminded to discard old lists and to update any records with all medication providers or retail pharmacies. Education Materials After Hernia Surgery You can usually go home the same day as surgery. If you had surgery to repair ventral or incisionalhernia, you may need to stay in the hospital overnight. To speed healing, take an active role in your recovery. The tips below can help. Reducing swelling Early on, it s common for the area around your incision to be swollen, bruised, and sore. To reduceswelling, put an ice pack or bag of frozen peas in a thin towel. Place the towel on the swollen area 3 to 5 times a day for 15 to 20 minutes at a time. Managing pain Take any prescribed pain medicines as directed. Be aware that some pain medicines can cause constipation. So your healthcare provider may also suggest a laxative or stool softener. Returning to normal You can return to your normal routine as soon as you feel able. Just take it easy and follow these guidelines: Take short walks to improve circulation. Avoid heavy lifting for at least a week. Ask your healthcare provider when you can drive and return to work. You can have sex again when you feel ready. Follow-up care Be sure to keep all follow-up appointments with your healthcare provider. These ensure you re healing well. During visits, your stitches, zachary, or bandage may be removed. When to call your healthcare provider Call your healthcare provider if you have any of the following: A large amount of swelling or bruising (some testicular swelling and bruising is normal) Fever of 100.4 F (38 C) or higher, or as directed by your healthcare provider Pain, redness, bleeding, or fluid from the incision that gets worse Trouble urinating Constipation Vomiting [id number] [employer] [place] [address]. All rights reserved. This information is not intended as a substitute for professional medical care. Always follow yourhealthcare professional's instructions. Additional Information VACCINATE! IT SAVES LIVES! Members of the community who have not yet received the COVID-19 vaccine and would like to receive it can visit one of [facility] vaccine clinics. There are many vaccine clinic locations within the [facility]. For locations and available times, please visit www.[email or web address]/. It is important to note that some COVID mobile vaccine clinics are held outdoors and may be canceled in rainy or stormy conditions. To learn more about pediatric vaccinations (ages 5-11), we invite you to visit the [facility] webpage. https://www.[facility].org/pages/6964-Udwrb-Hihxbrkmdln-Qvpccdwcjw-Bduyn-Hyq stions.htmlTo learn more about the COVID-19 vaccine, we invite you to visit the CDC website for a list of frequently asked questions. https://www.cdc.gov/coronavirus/2019-ncov/vaccines/faq.html [facility] [employer] Patient Portal Access Instructions: Stay connected with your healthcare team and access your personal medical information anytime with the [facility] Patient Portal. If you would like a full copy of your medical records please contact the [facility] Medical Records Department Friday through Friday between 8a.m. and 4:30p.m. Please follow the directions below to access the portal: 1.Access the email account you provided upon registration to the [facility].2.Look for an invitation email from [facility].3.Open the email and access the invitation link: Accept Invitation to [facility]4.Fill in the required vegas to create your account. Sign into [email or web address] with your username and password that you created in the above steps to stay up to date. You can then view a summary of results, a summary of your visits, and the ability to download your summaries to your computer or send the information securely to a physician. Remember that your healthcare information is confidential, so carefully consider who you will allow to register on the [employer] [facility] Patient Portal for access to your information. You can also access the [facility] [facility] Patient Portal on the [employer] yen. Simply click on Health Records under Within3Data and then click on the [employer] logo. HOW TO SAFELY DISPOSE OF PRESCRIPTION MEDICATIONS Please use one of the following methods to safely dispose of your unused medications. 1.Use a drug disposal kit: the drug disposal pouch allows you to safely discard your old and unuseddrugs. Ask your nurse to give you one when you are discharged.2.Visit a local take-back location: Many local pharmacies and police departments have programs that collect old and unwanted prescriptiondrugs. Call your local pharmacy or go to http://bit.Zenefits/5N3Fq2d to find one close to you.3.Make use of household items: Use cat litter or old coffee grounds to dispose medications if other options arenot available. Mix your drugs with these household products, seal them in an airtight container andthrow it into the garbage. Call [facility]: [phone] to be sure your drugs can be disposed of in this way. Some medicines may require a different approach.4.Never flush your medications down the toilet. IF YOU HAVE BEEN PRESCRIBED AN OPIOIDS FOR PAIN If you have been prescribed an opioid (such as hydrocodone, oxycodone or morphine), it is critical to understand the possible side effects and risks of opioid pain medications. Even when taken as directed, opioids can have several side effects including: Tolerance, meaning you might need to take more of a medication for the same pain relief. Nausea, vomiting and/or constipation. Sleepiness, dizziness, dry mouth, confusion, depression or itching. Physical dependence, meaning you have withdrawal symptoms when a medication is stopped ? this can develop within a few days. KNOW YOUR RESPONSIBILITIES It is important to know exactly how much and how often to take the opioid pain medications you are prescribed. Never take opioids in higher amounts or more often than prescribed. Do not combine opioids with alcohol or other drugs that cause drowsiness, such as benzodiazepines, also known as benzos,including diazepam and alprazolam, muscle relaxants or sleep aids. Never sell or share prescriptionopioids. This is illegal. Store opioids in a secure place and out of reach of others (including children, family, friends and visitors). The last page(s) of this document has been signed and retained as a CHART COPY Signatures Patient Education Materials After Hernia Surgery Medication Leaflets My discharge plan and instructions have been reviewed and explained to me and I,PATRICK KOROMA understand my current condition and have read and understand these discharge instructions. I have received a written copy of the plan/instructions. If I have questions, I am aware that I should contact my doctor. Patient/Mica Miner Signature: Date/Time: Relationship to Patient: Witness Name/Signature: Date/Time: [facility]01-13-2024 Note ORIGINAL EXAMINATION: CT OF THE ABDOMEN AND PELVIS WITH CONTRAST 06/28/2023 3:37 pm TECHNIQUE: CT of the abdomen and pelvis was performed with the administration of intravenous contrast. Multiplanar reformatted images are provided for review. Automated exposure control, iterative reconstruction, and/or weight based adjustment of the mA/kV was utilized to reduce the radiation dose to as low as reasonably achievable. COMPARISON: CT abdomen pelvis 05/16/2023, 02/12/2023 HISTORY: ORDERING SYSTEM PROVIDED HISTORY: Reason for Exam: pain, hernia surgery FINDINGS: Mild bilateral lower lobe atelectasis. The liver, spleen, adrenal glands, pancreas are within normal limits. The gallbladder is contracted and therefore not well evaluated. Symmetric nephrograms bilaterally. Unremarkable bladder and prostate gland. No free fluid in the pelvis. Normal caliber small and large bowel. Patient is status post appendectomy. No free air. The aorta is atherosclerotic but nonaneurysmal. No enlarged lymph nodes. Nonspecific subcutaneous tissue stranding and induration of the anterior abdominal subcutaneous tissues. Small confluent area of soft tissue density of the left external oblique muscle appears stable since the prior exam. Midline abdominal surgical scar. No fluid collection identified. No acute osseous abnormality. Mild degenerative changes. Tiny right and small left fat containing inguinal hernias without evidence of complications. IMPRESSION: No significant change from prior exam. I have personally reviewed the images of this examination and agree with the resident's findings and interpretation. Interpreted by: Wang Francisco Preliminary Report By: Isidro Duque Electronically signed By Wang Francisco Dictated Date: 06/28/2023 3:48:17 PM Prelim Date: 06/28/2023 3:57:27 PM Sign Date: 06/28/2023 4:25:43 PM [facility] + Plan note Diagnostic Tests Pending * Urine Culture 06/28/23 [facility] 12-24-2023 Hospital Discharge instructions Patient Education 06/08/2023 20:39:47 Abdominal Pain Abdominal Pain Abdominal pain is pain in the stomach or belly area. Everyone has this pain from time to time. In many cases it goes away on its own. But abdominal pain can sometimes be due to a serious problem, such as appendicitis. So it s important to know when to get help. Causes of abdominal pain There are many possible causes of abdominal pain. Common causes in adults include: Constipation, diarrhea, or gas Stomach acid flowing back up into the esophagus (acid reflux or heartburn) Severe acid reflux, called GERD (gastroesophageal reflux disease) A sore in the lining of the stomach or small intestine (peptic ulcer) Inflammation of the gallbladder, liver, or pancreas Gallstones or kidney stones Appendicitis Intestinal blockage An internal organ pushing through a muscle or other tissue (hernia) Urinary tract infections In women, menstrual cramps, fibroids, ovarian cysts, pelvic inflammatory disease, or endometriosis Inflammation or infection of the intestines, including Crohn's disease and ulcerative colitis Irritable bowel syndrome Diagnosing the cause of abdominal pain Your healthcare provider will give you a physical exam help find the cause of your pain. If needed,you will have tests. Belly pain has many possible causes. So it can be hard to find the reason for your pain. Giving details about your pain can help. Tell your provider where and when you feel the pain, and what makes it better or worse. Also let your provider know if you have other symptoms such as: Fever Tiredness Upset stomach (nausea) Vomiting Changes in bathroom habits Blood in the stool or black, tarry stool Weight loss that you can't explain (involuntary weight loss?) Also report any family history of stomach or intestinal problems, or cancers. Tell your provider about all your alcohol use and drug use. Tell your provider about all medicines you use, including herbs, vitamins, and supplements. Treating abdominal pain Some causes of pain need emergency medical treatment right away. These include appendicitis or a bowel blockage. Other problems can be treated with rest, fluids, or medicines. Your healthcare provider can give you specific instructions for treatment or self-care based on what is causing your pain. If you have vomiting or diarrhea, sip water or other clear fluids. When you are ready to eat solid foods again, start with small amounts of nhbi-aw-ahdpxb, low- fat foods. These include apple sauce, toast, or crackers. When to get medical care Call 911 or go to the hospital right away if you: Can t pass stool and are vomiting Are vomiting blood or have bloody diarrhea or black, tarry diarrhea Have chest, neck, or shoulder pain Feel like you might pass out Have pain in your shoulder blades with nausea Have sudden, severe belly pain Have new, severe pain unlike any you have felt before Have a belly that is rigid, hard, and hurts to touch Call your healthcare provider if you have: Pain for more than 5 days Bloating for more than 2 days Diarrhea for more than 5 days A fever of 100.4 F (38 C) or higher, or as directed by your healthcare provider Pain that gets worse Weight loss for no reason Continued lack of appetite Blood in your stool How to prevent abdominal pain Here are some tips to help prevent abdominal pain: Eat smaller amounts of food at each meal. Don't eat greasy, fried, or other high-fat foods. Don't eat foods that give you gas. Exercise regularly. Drink plenty of fluids. To help prevent GERD symptoms: Quit smoking. Reduce alcohol and foods that increase stomach acid. Don't use aspirin or uoda-xdx-bdqpevq pain and fever medicines, if possible. This includes nonsteroidal anti-inflammatory drugs (NSAIDs). Lose excess weight. Finish eating at least 2 hours before you go to bed or lie down. Raise the head of your bed. [id number] [employer]. [address] [place] [address]. All rights reserved. This information is not intended as a substitute for professional medical care. Always follow yourhealthcare professional's instructions. Follow Up Care 06/08/2023 17:37:31 With:Follow up with primary care provider Address:Unknown When:2-4 days [facility] 12-24-2023 Note Discharge Instructions Thank you for allowing [facility] to assist you with your healthcare needs. The following is importantdischarge information regarding your hospital visit. Diagnosis from Today's Visit Abdominal pain What to Do Next Instructions from Your Care Team No qualifying data available. Post Acute Orders No qualifying data available. You Need to Schedule the Following Appointments Follow Up with Follow up with primary care provider When Within 2-4 days Allergies Keflex Keppra (Rash) Tape, Paper (Rash) morphine (Rash) naproxen Medications Please ask your primary doctor or pharmacist before taking any other medication not listed, including over the counter drugs, herbal medications, vitamins and or supplements as they may interact withyour home medications. What How Much When Why Instructions Last Dose Unchanged carBAMazepine (TEGretol 200 mg oral tablet) 3 tab(s) by mouth Two (2) times a day Seizure Post-operative state s/p umbilical hernia repair, possible seizure following surgery Please take this list to your next doctor s visit. Bring all medications you take, including over the counter medications, herbals and other supplements with you to your doctor s visit. Patients and families are reminded to discard old lists and to update any records with all medication providers or retail pharmacies. Additional Information VACCINATE! IT SAVES LIVES! Members of the community who have not yet received the COVID-19 vaccine and would like to receive it can visit one of [facility] vaccine clinics. There are many vaccine clinic locations within the [facility]. For locations and available times, please visit www.[email or web address].[place].gov/. It is important to note that some COVID mobile vaccine clinics are held outdoors and may be canceled in rainy or stormy conditions. To learn more about pediatric vaccinations (ages 5-11), we invite you to visit the [facility] webpage. https://www.[facility].org/pages/0988-Bazqy-Aizzaqqqexh-Rqmiddxeay-Kjiej-Uzj stions.htmlTo learn more about the COVID-19 vaccine, we invite you to visit the CDC website for a list of frequently asked questions. https://www.cdc.gov/coronavirus/2019-ncov/vaccines/faq.html [facility] Patient Portal Access Instructions: Stay connected with your healthcare team and access your personal medical information anytime with the [employer] [facility] Patient Portal. If you would like a full copy of your medical records please contact the [facility] Medical Records Department Friday through Friday between 8a.m. and 4:30p.m. Please follow the directions below to access the portal: 1.Access the email account you provided upon registration to the hospital.2.Look for an invitation email from [facility].3.Open the email and access the invitation link: Accept Invitation to [facility]4.Fill in the required vegas to create your account. Sign into [email or web address] with your username and password that you created in the above steps to stay up to date. You can then view a summary of results, a summary of your visits, and the ability to download your summaries to your computer or send the information securely to a physician. Remember that your healthcare information is confidential, so carefully consider who you will allow to register on the [employer] Patient Portal for access to your information. You can also access the [employer] Patient Portal on the [employer]. Simply click on Health Records under [employer] and then click on the [employer] logo. HOW TO SAFELY DISPOSE OF PRESCRIPTION MEDICATIONS Please use one of the following methods to safely dispose of your unused medications. 1.Use a drug disposal kit: the drug disposal pouch allows you to safely discard your old and unuseddrugs. Ask your nurse to give you one when you are discharged.2.Visit a local take-back location: Many local pharmacies and police departments have programs that collect old and unwanted prescriptiondrugs. Call your local pharmacy or go to http://Jiberish.Zenefits/7H1Ln9s to find one close to you.3.Make use of household items: Use cat litter or old coffee grounds to dispose medications if other options arenot available. Mix your drugs with these household products, seal them in an airtight container andthrow it into the garbage. Call [facility]: [phone] to be sure your drugs can be disposed of in this way. Some medicines may require a different approach.4.Never flush your medications down the toilet. IF YOU HAVE BEEN PRESCRIBED AN OPIOIDS FOR PAIN If you have been prescribed an opioid (such as hydrocodone, oxycodone or morphine), it is critical to understand the possible side effects and risks of opioid pain medications. Even when taken as directed, opioids can have several side effects including: Tolerance, meaning you might need to take more of a medication for the same pain relief. Nausea, vomiting and/or constipation. Sleepiness, dizziness, dry mouth, confusion, depression or itching. Physical dependence, meaning you have withdrawal symptoms when a medication is stopped ? this can develop within a few days. KNOW YOUR RESPONSIBILITIES It is important to know exactly how much and how often to take the opioid pain medications you are prescribed. Never take opioids in higher amounts or more often than prescribed. Do not combine opioids with alcohol or other drugs that cause drowsiness, such as benzodiazepines, also known as benzos,including diazepam and alprazolam, muscle relaxants or sleep aids. Never sell or share prescriptionopioids. This is illegal. Store opioids in a secure place and out of reach of others (including children, family, friends and visitors). The last page(s) of this document has been signed and retained as a CHART COPY Signatures Patient Education Materials Medication Leaflets My discharge plan and instructions have been reviewed and explained to me and I,PATRICK KOROMA understand my current condition and have read and understand these discharge instructions. I have received a written copy of the plan/instructions. If I have questions, I am aware that I should contact my doctor. Patient/Mica Miner Signature: Date/Time: Relationship to Patient: Witness Name/Signature: Date/Time: [facility]12-02-2023 Hospital Discharge instructions Patient Education 05/16/2023 23:04:20 AA Blank DI (CUSTOM) Result type:CT Abd/Pelvis w/ IV Contrast Only Result date:May 16, 2023 21:13 EST Result status:Auth (Verified) Result title:CT ABD/PELVIS W/ IV CONTRAST ONLY Performed by:CARLO LUKE MD on May 16, 2023 21:06 EST Cosigned by:ZOILA MABRY DO Verified by:CARLO LUKE MD on May 16, 2023 21:13 EST Encounter info:[id number], [facility], Emergency, 05/16/2023 - Contributor system:[employer] * Final Report * [id number] ORIGINAL EXAMINATION: CT OF THE ABDOMEN AND PELVIS WITH CONTRAST 05/16/2023 9:18 pm TECHNIQUE: CT of the abdomen and pelvis was performed with the administration of intravenous contrast. Multiplanar reformatted images are provided for review. Automated exposure control, iterative reconstruction, and/or weight based adjustment of the mA/kV was utilized to reduce the radiation dose to as low as reasonably achievable. COMPARISON: CT abdomen and pelvis 02/12/2023 HISTORY: ORDERING SYSTEM PROVIDED HISTORY: Reason for Exam: abdominal pain Hernia repair x3, appendectomy FINDINGS: Multilevel degenerative changes throughout the spine. Small bilateral fat containing inguinal hernias. There is a midline abdominal surgical scar. Within the left lower quadrant there is soft tissue induration with focal lentiform shaped thickening/enlargement of the medial aspect of the left external oblique, most likely representing a hematoma. The hematoma measures up to 6.9 x 1.9 x 3.9 cm. The included lung bases are clear. The liver, spleen, pancreas and both adrenal glands are unremarkable. The gallbladder is contracted. Symmetric nephrograms. No hydronephrosis or nephrolithiasis. Subcentimeter hypodense exophytic left upper pole renal lesion is too small to characterize but statistically represents a cyst. The bladder is not well distended. The prostate is unremarkable. The small bowel is normal caliber and without evidence of inflammatory change. The large bowel is unremarkable. The appendix is surgically absent. No free air or free fluid. The aorta is mildly atherosclerotic and nonaneurysmal. No pathologically enlarged lymph nodes. IMPRESSION: 6.9 cm left external oblique hematoma with mild adjacent soft tissue edema. I have personally reviewed the images of this examination and agree with the resident's findings and interpretation. Interpreted by: Carlo Luke Preliminary Report By: Zoila Mabry Electronically signed By Carlo Luke Dictated Date: 05/16/2023 9:41:49 PM Prelim Date: 05/16/2023 10:07:10 PM Sign Date: 05/16/2023 10:45:51 PM Ordering Provider: TOI MARMOLEJO IMAGE This document has an image Document Released: 06/02/2006 Document Revised: 05/19/2013 Document Reviewed: 06/03/2014 ExitCare Patient Information 2015 [employer]. This information is not intended to replace advicegiven to you by your health care provider. Make sure you discuss any questions you have with your health care provider. 05/16/2023 23:04:01 Hematoma Hematoma A hematoma is a collection of blood trapped outside of a blood vessel. It is what we think of as a bruise or a contusion. It is usually seen under the skin as a black and blue spot on your arm or leg, or a bump on your head after an injury. It can be almost anywhere on or in your body. It can also occur in an internal organ where it can be more serious. A hematoma is caused by an injury with damage to small blood vessels. This causes blood to leak into the tissues. Blood forms a pocket under the skin that swells and looks like a purplish patch. Hematomas sometimes form under the skin from bleeding during childbirth and can be particularly serious.Another serious form of hematoma forms after a fall on the head, called a subdural hematoma. Gradually the blood in the hematoma is absorbed back into the body. The swelling and pain of the hematoma will go away. This takes from 1 to 4 weeks, depending on the size of the hematoma. The skin over the hematoma may turn bluish then brown and yellow as the blood is dissolved and absorbed. Usually, this only takes a couple of weeks but can last months. Home care Limit motion of the joints near the hematoma. If the hematoma is large and painful, avoid sports and other vigorous physical activity until the swelling and pain goes away. Apply an ice pack (ice cubes in a plastic bag, or a frozen bag of peas, wrapped in a thin towel) over the injured area for 20 minutes every 1 to 2 hours the first day. Continue with ice packs 3 to 4 times a day for the next 2 days. Continue the use of ice packs for relief of pain and swelling as needed. If you need anything for pain, you can take acetaminophen, unless you were given a different pain medicine to use. Talk with your healthcare provider before using this medicine if you have chronic liver or kidney disease. Also talk with your healthcare provider if you have had a stomach ulcer or digestive tract bleeding, or are taking blood-thinner medicines. Follow-up care Follow up with your healthcare provider, or as advised. If X-rays or a CT scan were done, you will be notified if there is a change in the reading, especially if it affects treatment. When to seek medical advice Call your healthcare provider right away if any of the following occur: Redness around the hematoma Increase in pain or warmth in the hematoma Increase in size of the hematoma Fever of 100.4 F (38 C) or higher, or as directed by your healthcare provider If the hematoma is on the arm or leg, watch for: oIncreased swelling or pain in the extremity oNumbness or tingling or blue color of the hand or foot [employer] [address] [place] [address]. All rights reserved. This information is not intended as a substitute for professional medical care. Always follow yourhealthcare professional's instructions. 05/16/2023 23:03:57 Hyponatremia Hyponatremia Hyponatremia means low sodium levels in the blood. This condition most often occurs after prolongedvomiting or diarrhea, which causes your body to lose too much water and sodium. It can also result from drinking excess amounts of water or the use of diuretics (water pills). Rarely, it can be associated with disorders of your endocrine system, as side effects of illicit drug use (ecstasy), as a complication of some cancers especially small cell lung cancer, or as a complication of renal and liver disease or heart failure. Mild hyponatremia causes no symptoms. It is only discovered with a blood test. As sodium levels in the blood decreases, symptoms begin to appear. This includes weakness, confusion, muscle cramping and seizures. Home care Reduce your daily water intake until the problem is corrected. If you have been taking diuretics, you may be asked to stop taking them for a short time. If you are having symptoms of weakness or confusion, do not drive or operate dangerous machinery until symptoms resolve. If your sodium levels are too low to be managed at home with the above recommendations, you will beasked to go to the hospital to have your sodium replaced through your vein. Follow-up care Follow up with your healthcare provider for a repeat blood test within the next week, or as advised. When to seek medical advice Call your healthcare provider if any of the following occur: Increasing weakness Dizziness Irregular heartbeat, extra beats or very fast heart rate Increasing confusion Fainting or loss of consciousness Seizure [employer] [address] [place] [address]. All rights reserved. This information is not intended as a substitute for professional medical care. Always follow yourhealthcare professional's instructions. 05/16/2023 20:27:06 Abdominal Pain Abdominal Pain Abdominal pain is pain in the stomach or belly area. Everyone has this pain from time to time. In many cases it goes away on its own. But abdominal pain can sometimes be due to a serious problem, such as appendicitis. So it s important to know when to get help. Causes of abdominal pain There are many possible causes of abdominal pain. Common causes in adults include: Constipation, diarrhea, or gas Stomach acid flowing back up into the esophagus (acid reflux or heartburn) Severe acid reflux, called GERD (gastroesophageal reflux disease) A sore in the lining of the stomach or small intestine (peptic ulcer) Inflammation of the gallbladder, liver, or pancreas Gallstones or kidney stones Appendicitis Intestinal blockage An internal organ pushing through a muscle or other tissue (hernia) Urinary tract infections In women, menstrual cramps, fibroids, ovarian cysts, pelvic inflammatory disease, or endometriosis Inflammation or infection of the intestines, including Crohn's disease and ulcerative colitis Irritable bowel syndrome Diagnosing the cause of abdominal pain Your healthcare provider will give you a physical exam help find the cause of your pain. If needed,you will have tests. Belly pain has many possible causes. So it can be hard to find the reason for your pain. Giving details about your pain can help. Tell your provider where and when you feel the pain, and what makes it better or worse. Also let your provider know if you have other symptoms such as: Fever Tiredness Upset stomach (nausea) Vomiting Changes in bathroom habits Blood in the stool or black, tarry stool Weight loss that you can't explain (involuntary weight loss?) Also report any family history of stomach or intestinal problems, or cancers. Tell your provider about all your alcohol use and drug use. Tell your provider about all medicines you use, including herbs, vitamins, and supplements. Treating abdominal pain Some causes of pain need emergency medical treatment right away. These include appendicitis or a bowel blockage. Other problems can be treated with rest, fluids, or medicines. Your healthcare provider can give you specific instructions for treatment or self-care based on what is causing your pain. If you have vomiting or diarrhea, sip water or other clear fluids. When you are ready to eat solid foods again, start with small amounts of lxev-cj-cifhzt, low- fat foods. These include apple sauce, toast, or crackers. When to get medical care Call 911 or go to the hospital right away if you: Can t pass stool and are vomiting Are vomiting blood or have bloody diarrhea or black, tarry diarrhea Have chest, neck, or shoulder pain Feel like you might pass out Have pain in your shoulder blades with nausea Have sudden, severe belly pain Have new, severe pain unlike any you have felt before Have a belly that is rigid, hard, and hurts to touch Call your healthcare provider if you have: Pain for more than 5 days Bloating for more than 2 days Diarrhea for more than 5 days A fever of 100.4 F (38 C) or higher, or as directed by your healthcare provider Pain that gets worse Weight loss for no reason Continued lack of appetite Blood in your stool How to prevent abdominal pain Here are some tips to help prevent abdominal pain: Eat smaller amounts of food at each meal. Don't eat greasy, fried, or other high-fat foods. Don't eat foods that give you gas. Exercise regularly. Drink plenty of fluids. To help prevent GERD symptoms: Quit smoking. Reduce alcohol and foods that increase stomach acid. Don't use aspirin or npqj-zcj-qbyfjcf pain and fever medicines, if possible. This includes nonsteroidal anti-inflammatory drugs (NSAIDs). Lose excess weight. Finish eating at least 2 hours before you go to bed or lie down. Raise the head of your bed. 2507-[address] [employer] [place] [address]. All rights reserved. This information is not intended as a substitute for professional medical care. Always follow yourhealthcare professional's instructions. Follow Up Care 05/16/2023 20:02:25 With:Go to emergency room if symptoms worsen Address:Unknown When:2-4 days With:Follow up with primary care provider Address:Unknown When:2-4 days [facility] 12-01-2023 Note ORIGINAL EXAMINATION: CT OF THE ABDOMEN AND PELVIS WITH CONTRAST 05/16/2023 9:18 pm TECHNIQUE: CT of the abdomen and pelvis was performed with the administration of intravenous contrast. Multiplanar reformatted images are provided for review. Automated exposure control, iterative reconstruction, and/or weight based adjustment of the mA/kV was utilized to reduce the radiation dose to as low as reasonably achievable. COMPARISON: CT abdomen and pelvis 02/12/2023 HISTORY: ORDERING SYSTEM PROVIDED HISTORY: Reason for Exam: abdominal pain Hernia repair x3, appendectomy FINDINGS: Multilevel degenerative changes throughout the spine. Small bilateral fat containing inguinal hernias. There is a midline abdominal surgical scar. Within the left lower quadrant there is soft tissue induration with focal lentiform shaped thickening/enlargement of the medial aspect of the left external oblique, most likely representing a hematoma. The hematoma measures up to 6.9 x 1.9 x 3.9 cm. The included lung bases are clear. The liver, spleen, pancreas and both adrenal glands are unremarkable. The gallbladder is contracted. Symmetric nephrograms. No hydronephrosis or nephrolithiasis. Subcentimeter hypodense exophytic left upper pole renal lesion is too small to characterize but statistically represents a cyst. The bladder is not well distended. The prostate is unremarkable. The small bowel is normal caliber and without evidence of inflammatory change. The large bowel is unremarkable. The appendix is surgically absent. No free air or free fluid. The aorta is mildly atherosclerotic and nonaneurysmal. No pathologically enlarged lymph nodes. IMPRESSION: 6.9 cm left external oblique hematoma with mild adjacent soft tissue edema. I have personally reviewed the images of this examination and agree with the resident's findings and interpretation. Interpreted by: Carlo Luke Preliminary Report By: Zoila Mabry Electronically signed By Carlo Luke Dictated Date: 05/16/2023 9:41:49 PM Prelim Date: 05/16/2023 10:07:10 PM Sign Date: 05/16/2023 10:45:51 PM Ordering Provider: [facility]08-30-2023 Hospital Discharge instructions Patient Education 02/12/2023 20:11:30 Abdominal Pain, Unknown Cause, (Male) Unknown Causes of Abdominal Pain (Male) Based on your visit today, the exact cause of your abdominal pain is not clear. Your exam and testsdon't suggest a dangerous cause at this time. However, the signs of a serious problem may take moretime to appear. Although your evaluation was reassuring today, sometimes early in the course of many conditions, exam and lab tests can appear normal. Therefore, it is important for you to watch for any new symptoms or worsening of your condition. It may not be obvious what caused your symptoms. Pay attention to things that do seem to make your symptoms worse or better and discuss this with your doctor when you follow up. The evaluation of abdominal pain in the emergency department may only require an exam by the doctoror it may include blood, urine or imaging studies, depending on many factors. Sometimes exams and tests can identify a cause but in many cases, a clear cause is not found. Further testing at follow up visits may help to suggest a clear diagnosis. Home care Rest as much as you can until your next exam. Try to avoid any medicines (unless otherwise directed by your doctor), foods, activities, or other factors that may have contributed to your symptoms. Try to eat foods that you know that you have tolerated well in the past. Certain diets may be recommended for some conditions that cause abdominal pain. However, since the cause of your symptoms may not be clear, discuss your diet more with your healthcare provider or specialist for further recommendations. If you have diarrhea, it may help to avoid dairy (lactose) for the time being. A low fat, low fiberdiet can also help. Eating several small meals per day as opposed to 2 or 3 larger meals may help. Avoid dehydration. Make sure to drink plenty of water. Other options include broth, soup, gelatin, sports drinks, or other clear liquids. Watch closely for anything that may make your symptoms worse or better. Pay close attention to symptoms below that may mean your condition is getting worse. Follow-up care Follow up with your healthcare provider if your symptoms are not improving, or as advised. In some cases, you may need more testing. When to seek medical advice Call your healthcare provider right away if any of these occur: Pain is becoming worse You are unable to take your medicines or can't keep water down due to excessive vomiting Swelling of the abdomen Fever of 100.4 F (38 C) or higher, or as directed by your healthcare provider Blood in vomit or bowel movements (dark red or black color) Jaundice (yellow color of eyes and skin) New onset of weakness, dizziness or fainting New onset of chest, arm, back, neck or jaw pain [id number] [employer] [address] [place] [address], [place] [address]. All rights reserved. This information is not intended as a substitute for professional medical care. Always follow yourhealthcare professional's instructions. Follow Up Care 02/12/2023 17:22:30 With:AARON DUUQE Address: [address] [facility] [place] [phone] Business (1) When:2-4 days With:NONE PHYSICIAN Address:Unknown When:2-4 days [facility]andy[facility] Colindres 08-30-2023 Emergency department Discharge summary Discharge Instructions Thank you for allowing [facility] to assist you with your healthcare needs. The following is importantdischarge information regarding your hospital visit. Diagnosis from Today's Visit Abdominal pain What to Do Next Instructions from Your Care Team No qualifying data available. Post Acute Orders No qualifying data available. You Need to Schedule the Following Appointments Follow Up with AARON DUQUE When Within 2-4 days Where: [address] [facility] [place] [address] [phone] [facility]AG[place] (1) Follow Up with NONE PHYSICIAN When Within 2-4 days Allergies Keflex Keppra (Rash) Tape, Paper (Rash) morphine (Rash) naproxen Medications Please ask your primary doctor or pharmacist before taking any other medication not listed, including over the counter drugs, herbal medications, vitamins and or supplements as they may interact withyour home medications. What How Much When Why Instructions Last Dose New sulfamethoxazole-trimethoprim (Bactrim DS 800 mg-160 mg oral tablet) 1 tab(s) by mouth Two (2) times a day Duration: 5 Days Printed Prescription Unchanged carBAMazepine (TEGretol 200 mg oral tablet) 3 tab(s) by mouth Two (2) times a day Seizure Post-operative state s/p umbilical hernia repair, possible seizure following surgery Please take this list to your next doctor s visit. Bring all medications you take, including over the counter medications, herbals and other supplements with you to your doctor s visit. Patients and families are reminded to discard old lists and to update any records with all medication providers or retail pharmacies. Education Materials Unknown Causes of Abdominal Pain (Male) Based on your visit today, the exact cause of your abdominal pain is not clear. Your exam and testsdon't suggest a dangerous cause at this time. However, the signs of a serious problem may take moretime to appear. Although your evaluation was reassuring today, sometimes early in the course of many conditions, exam and lab tests can appear normal. Therefore, it is important for you to watch for any new symptoms or worsening of your condition. It may not be obvious what caused your symptoms. Pay attention to things that do seem to make your symptoms worse or better and discuss this with your doctor when you follow up. The evaluation of abdominal pain in the emergency department may only require an exam by the doctoror it may include blood, urine or imaging studies, depending on many factors. Sometimes exams and tests can identify a cause but in many cases, a clear cause is not found. Further testing at follow up visits may help to suggest a clear diagnosis. Home care Rest as much as you can until your next exam. Try to avoid any medicines (unless otherwise directed by your doctor), foods, activities, or other factors that may have contributed to your symptoms. Try to eat foods that you know that you have tolerated well in the past. Certain diets may be recommended for some conditions that cause abdominal pain. However, since the cause of your symptoms may not be clear, discuss your diet more with your healthcare provider or specialist for further recommendations. If you have diarrhea, it may help to avoid dairy (lactose) for the time being. A low fat, low fiberdiet can also help. Eating several small meals per day as opposed to 2 or 3 larger meals may help. Avoid dehydration. Make sure to drink plenty of water. Other options include broth, soup, gelatin, sports drinks, or other clear liquids. Watch closely for anything that may make your symptoms worse or better. Pay close attention to symptoms below that may mean your condition is getting worse. Follow-up care Follow up with your healthcare provider if your symptoms are not improving, or as advised. In some cases, you may need more testing. When to seek medical advice Call your healthcare provider right away if any of these occur: Pain is becoming worse You are unable to take your medicines or can't keep water down due to excessive vomiting Swelling of the abdomen Fever of 100.4 F (38 C) or higher, or as directed by your healthcare provider Blood in vomit or bowel movements (dark red or black color) Jaundice (yellow color of eyes and skin) New onset of weakness, dizziness or fainting New onset of chest, arm, back, neck or jaw pain [id number] [employer] [address] [place] [address]. All rights reserved. This information is not intended as a substitute for professional medical care. Always follow yourhealthcare professional's instructions. Additional Information VACCINATE! IT SAVES LIVES! Members of the community who have not yet received the COVID-19 vaccine and would like to receive it can visit one of [facility] vaccine clinics. There are many vaccine clinic locations within the [facility]. For locations and available times, please visit www.[email or web address].[place].gov/. It is important to note that some COVID mobile vaccine clinics are held outdoors and may be canceled in rainy or stormy conditions. To learn more about pediatric vaccinations (ages 5-11), we invite you to visit the [facility] webpage. https://www.[email or web address].org/pages/7257-Bjvrd-Nztylrvcnwd-Kdyqoqtrmk-Wdhnb-Psk stions.htmlTo learn more about the COVID-19 vaccine, we invite you to visit the CDC website for a list of frequently asked questions. https://www.cdc.gov/coronavirus/2019-ncov/vaccines/faq.html [facility] Patient Portal Access Instructions: Stay connected with your healthcare team and access your personal medical information anytime with the [facility] Patient Portal. If you would like a full copy of your medical records please contact the [facility] Medical Records Department Friday through Friday between 8a.m. and 4:30p.m. Please follow the directions below to access the portal: 1.Access the email account you provided upon registration to the hospital.2.Look for an invitation email from [facility].3.Open the email and access the invitation link: Accept Invitation to [facility]4.Fill in the required [place]gas to create your account. Sign into [email or web address] with your username and password that you created in the above steps to stay up to date. You can then view a summary of results, a summary of your visits, and the ability to download your summaries to your computer or send the information securely to a physician. Remember that your healthcare information is confidential, so carefully consider who you will allow to register on the [facility] Patient Portal for access to your information. You can also access the [facility] Patient Portal on the [employer] yen. Simply click on Health Records under [employer] and then click on the [facility] logo. HOW TO SAFELY DISPOSE OF PRESCRIPTION MEDICATIONS Please use one of the following methods to safely dispose of your unused medications. 1.Use a drug disposal kit: the drug disposal pouch allows you to safely discard your old and unuseddrugs. Ask your nurse to give you one when you are discharged.2.Visit a local take-back location: Many local pharmacies and police departments have programs that collect old and unwanted prescriptiondrugs. Call your local pharmacy or go to http://Jiberish.Zenefits/3H6Er7e to find one close to you.3.Make use of household items: Use cat litter or old coffee grounds to dispose medications if other options arenot available. Mix your drugs with these household products, seal them in an airtight container andthrow it into the garbage. Call [facility]: [phone] to be sure your drugs can be disposed of in this way. Some medicines may require a different approach.4.Never flush your medications down the toilet. IF YOU HAVE BEEN PRESCRIBED AN OPIOIDS FOR PAIN If you have been prescribed an opioid (such as hydrocodone, oxycodone or morphine), it is critical to understand the possible side effects and risks of opioid pain medications. Even when taken as directed, opioids can have several side effects including: Tolerance, meaning you might need to take more of a medication for the same pain relief. Nausea, vomiting and/or constipation. Sleepiness, dizziness, dry mouth, confusion, depression or itching. Physical dependence, meaning you have withdrawal symptoms when a medication is stopped ? this can develop within a few days. KNOW YOUR RESPONSIBILITIES It is important to know exactly how much and how often to take the opioid pain medications you are prescribed. Never take opioids in higher amounts or more often than prescribed. Do not combine opioids with alcohol or other drugs that cause drowsiness, such as benzodiazepines, also known as benzos,including diazepam and alprazolam, muscle relaxants or sleep aids. Never sell or share prescriptionopioids. This is illegal. Store opioids in a secure place and out of reach of others (including children, family, friends and visitors). The last page(s) of this document has been signed and retained as a CHART COPY Signatures Patient Education Materials Abdominal Pain, Unknown Cause, (Male) Medication Leaflets My discharge plan and instructions have been reviewed and explained to me and I,PATRICK KOROMA understand my current condition and have read and understand these discharge instructions. I have received a written copy of the plan/instructions. If I have questions, I am aware that I should contact my doctor. Patient/Mica Miner Signature: Date/Time: Relationship to Patient: Witness Name/Signature: Date/Time: [facility]08-30-2023 Emergency department Discharge summary Discharge Instructions Thank you for allowing [facility] to assist you with your healthcare needs. The following is importantdischarge information regarding your hospital visit. Diagnosis from Today's Visit Abdominal pain What to Do Next Instructions from Your Care Team No qualifying data available. Post Acute Orders No qualifying data available. You Need to Schedule the Following Appointments Follow Up with AARON DUQUE When Within 2-4 days Where: [address] [facility] [place] [address] [phone] [facility] (1) Follow Up with NONE PHYSICIAN When Within 2-4 days Allergies Keflex Keppra (Rash) Tape, Paper (Rash) morphine (Rash) naproxen Medications Please ask your primary doctor or pharmacist before taking any other medication not listed, including over the counter drugs, herbal medications, vitamins and or supplements as they may interact withyour home medications. What How Much When Why Instructions Last Dose New sulfamethoxazole-trimethoprim (Bactrim DS 800 mg-160 mg oral tablet) 1 tab(s) by mouth Two (2) times a day Duration: 5 Days Printed Prescription Unchanged carBAMazepine (TEGretol 200 mg oral tablet) 3 tab(s) by mouth Two (2) times a day Seizure Post-operative state s/p umbilical hernia repair, possible seizure following surgery Please take this list to your next doctor s visit. Bring all medications you take, including over the counter medications, herbals and other supplements with you to your doctor s visit. Patients and families are reminded to discard old lists and to update any records with all medication providers or retail pharmacies. Education Materials Unknown Causes of Abdominal Pain (Male) Based on your visit today, the exact cause of your abdominal pain is not clear. Your exam and testsdon't suggest a dangerous cause at this time. However, the signs of a serious problem may take moretime to appear. Although your evaluation was reassuring today, sometimes early in the course of many conditions, exam and lab tests can appear normal. Therefore, it is important for you to watch for any new symptoms or worsening of your condition. It may not be obvious what caused your symptoms. Pay attention to things that do seem to make your symptoms worse or better and discuss this with your doctor when you follow up. The evaluation of abdominal pain in the emergency department may only require an exam by the doctoror it may include blood, urine or imaging studies, depending on many factors. Sometimes exams and tests can identify a cause but in many cases, a clear cause is not found. Further testing at follow up visits may help to suggest a clear diagnosis. Home care Rest as much as you can until your next exam. Try to avoid any medicines (unless otherwise directed by your doctor), foods, activities, or other factors that may have contributed to your symptoms. Try to eat foods that you know that you have tolerated well in the past. Certain diets may be recommended for some conditions that cause abdominal pain. However, since the cause of your symptoms may not be clear, discuss your diet more with your healthcare provider or specialist for further recommendations. If you have diarrhea, it may help to avoid dairy (lactose) for the time being. A low fat, low fiberdiet can also help. Eating several small meals per day as opposed to 2 or 3 larger meals may help. Avoid dehydration. Make sure to drink plenty of water. Other options include broth, soup, gelatin, sports drinks, or other clear liquids. Watch closely for anything that may make your symptoms worse or better. Pay close attention to symptoms below that may mean your condition is getting worse. Follow-up care Follow up with your healthcare provider if your symptoms are not improving, or as advised. In some cases, you may need more testing. When to seek medical advice Call your healthcare provider right away if any of these occur: Pain is becoming worse You are unable to take your medicines or can't keep water down due to excessive vomiting Swelling of the abdomen Fever of 100.4 F (38 C) or higher, or as directed by your healthcare provider Blood in vomit or bowel movements (dark red or black color) Jaundice (yellow color of eyes and skin) New onset of weakness, dizziness or fainting New onset of chest, arm, back, neck or jaw pain [id number] [employer]. [address] [place] [address]36. All rights reserved. This information is not intended as a substitute for professional medical care. Always follow yourhealthcare professional's instructions. Additional Information VACCINATE! IT SAVES LIVES! Members of the community who have not yet received the COVID-19 vaccine and would like to receive it can visit one of [facility] vaccine clinics. There are many vaccine clinic locations within the [facility]. For locations and available times, please visit www.gettheshot.coronavirus.[place].gov/. It is important to note that some COVID mobile vaccine clinics are held outdoors and may be canceled in rainy or stormy conditions. To learn more about pediatric vaccinations (ages 5-11), we invite you to visit the [facility] webpage. https://www.[facility].org/pages/5218-Mhynm-Fiudreunzoh-Ztrzqtgdaa-Kjwat-Npo stions.htmlTo learn more about the COVID-19 vaccine, we invite you to visit the CDC website for a list of frequently asked questions. https://www.cdc.gov/coronavirus/2019-ncov/vaccines/faq.html [facility] Patient Portal Access Instructions: Stay connected with your healthcare team and access your personal medical information anytime with the [facility] [facility] Patient Portal. If you would like a full copy of your medical records please contact the [facility] Medical Records Department Friday through Friday between 8a.m. and 4:30p.m. Please follow the directions below to access the portal: 1.Access the email account you provided upon registration to the [facility].2.Look for an invitation email from [facility].3.Open the email and access the invitation link: Accept Invitation to [facility]4.Fill in the required vegas to create your account. Sign into [email or web address] with your username and password that you created in the above steps to stay up to date. You can then view a summary of results, a summary of your visits, and the ability to download your summaries to your computer or send the information securely to a physician. Remember that your healthcare information is confidential, so carefully consider who you will allow to register on the [employer] Patient Portal for access to your information. You can also access the [employer] Patient Portal on the [employer] yen. Simply click on Health Records under [employer] and then click on the [employer] logo. HOW TO SAFELY DISPOSE OF PRESCRIPTION MEDICATIONS Please use one of the following methods to safely dispose of your unused medications. 1.Use a drug disposal kit: the drug disposal pouch allows you to safely discard your old and unuseddrugs. Ask your nurse to give you one when you are discharged.2.Visit a local take-back location: Many local pharmacies and police departments have programs that collect old and unwanted prescriptiondrugs. Call your local pharmacy or go to http://Jiberish.Zenefits/5E1Hh4c to find one close to you.3.Make use of household items: Use cat litter or old coffee grounds to dispose medications if other options arenot available. Mix your drugs with these household products, seal them in an airtight container andthrow it into the garbage. Call [facility]: [phone] to be sure your drugs can be disposed of in this way. Some medicines may require a different approach.4.Never flush your medications down the toilet. IF YOU HAVE BEEN PRESCRIBED AN OPIOIDS FOR PAIN If you have been prescribed an opioid (such as hydrocodone, oxycodone or morphine), it is critical to understand the possible side effects and risks of opioid pain medications. Even when taken as directed, opioids can have several side effects including: Tolerance, meaning you might need to take more of a medication for the same pain relief. Nausea, vomiting and/or constipation. Sleepiness, dizziness, dry mouth, confusion, depression or itching. Physical dependence, meaning you have withdrawal symptoms when a medication is stopped ? this can develop within a few days. KNOW YOUR RESPONSIBILITIES It is important to know exactly how much and how often to take the opioid pain medications you are prescribed. Never take opioids in higher amounts or more often than prescribed. Do not combine opioids with alcohol or other drugs that cause drowsiness, such as benzodiazepines, also known as benzos,including diazepam and alprazolam, muscle relaxants or sleep aids. Never sell or share prescriptionopioids. This is illegal. Store opioids in a secure place and out of reach of others (including children, family, friends and visitors). The last page(s) of this document has been signed and retained as a CHART COPY Signatures Patient Education Materials Abdominal Pain, Unknown Cause, (Male) Medication Leaflets My discharge plan and instructions have been reviewed and explained to me and I,PATRICK KOROMA understand my current condition and have read and understand these discharge instructions. I have received a written copy of the plan/instructions. If I have questions, I am aware that I should contact my doctor. Patient/Mica Miner Signature: Date/Time: Relationship to Patient: Witness Name/Signature: Date/Time: [facility]08-30-2023 Note ORIGINAL EXAMINATION: CT OF THE ABDOMEN AND PELVIS WITH CONTRAST 02/12/2023 6:52 pm TECHNIQUE: CT of the abdomen and pelvis was performed with the administration of intravenous contrast. Multiplanar reformatted images are provided for review. Automated exposure control, iterative reconstruction, and/or weight based adjustment of the mA/kV was utilized to reduce the radiation dose to as low as reasonably achievable. COMPARISON: CT abdomen pelvis 10/20/2022 HISTORY: ORDERING SYSTEM PROVIDED HISTORY: Reason for Exam: Abdominal pain left lower quadrant history of hernia repair x3 worsening pain for 2 days now having bowel movements. Hernia surgery in July of 2022 History of appendectomy FINDINGS: Multilevel degenerative changes throughout the spine. Small bilateral fat containing inguinal hernias. There is a midline abdominal surgical scar as well as soft tissue density involving the subcutaneous fat of the left lower quadrant, with surrounding stranding and inflammatory change. The soft tissue density measures about 5.1 x 2.4 cm in greatest axial dimensions on image 84 series 2. This lesion has diminished significantly in size and conspicuity since prior study. No focal fluid collection to suggest an abscess. No subcutaneous gas. No overlying skin thickening. The included lung bases are clear. The liver, gallbladder, spleen, pancreas and both adrenal glands are unremarkable. Symmetric nephrograms. No hydronephrosis or nephrolithiasis. Subcentimeter hypodense left upper pole renal lesions are too small to characterize but likely represent cysts. No focal bladder wall thickening. The small bowel is normal caliber without evidence of inflammatory change. Focal wall thickening of the distal sigmoid colon, which could represent peristalsis versus under distension at this location. The appendix is surgically absent. No free air free fluid. The aorta is mildly atherosclerotic and nonaneurysmal. No pathologically enlarged lymph nodes. IMPRESSION: Focal inflammation and soft tissue density within the subcutaneous fat of the left lower quadrant. No focal fluid collection to suggest an abscess. This finding has diminished in size and conspicuity since previous assessment and presumably relates to a postoperative area of fibrosis or seroma. I have personally reviewed the images of this examination and agree with the resident's findings and interpretation. Interpreted by: Jorgito Etienne DO Preliminary Report By: Zoila Mabry Electronically signed By Jorgito Etienne DO Dictated Date: 02/12/2023 7:28:23 PM Prelim Date: 02/12/2023 7:37:05 PM Sign Date: 02/12/2023 8:10:54 PM Ordering Provider: [facility]08-30-2023 Note Sinus rhythm RSR' in V1 or V2, probably normal variant Baseline wander in lead(s) II,III,aVF,V2 Compared to ECG at 03/08/2018 23:11:38 BORDERLINE ECG Electronic Signature: ANJEL PEÑA DO 02/12/2023 17:53:40[facility] 05-16-2023 NoteORIGINAL PROCEDURE: Fluoroscopic drainage catheter evaluation (Abscessogram) performed on 10/28/2022. INDICATION: LLQ seroma s/p drain and sclerosis. The patient reports minimal drainage recently. COMPARISON: 10/21/2022. TECHNIQUE/FINDINGS: The procedure was performed in the VIR Suite with the patient in the supine position. A furniture installer image demonstrated position of the existing percutaneous catheter. Using sterile technique, the existing 8-F locking pigtail catheter was gently injected with contrast using fluoroscopic guidance. The existing catheter was clogged with debris. There was essentially no residual seroma cavity demonstrated by fluoroscopy. The drainage catheter was removed. The skin entry site was cleaned and dressed in the usual fashion. There were no immediate complications. Total Fluoroscopy Time: 0.4 minutes. Reference Air Kerma (LIBBY): 64 mGy. IMPRESSION: 1. Resolution of the superficial left lower quadrant abdominal seroma. 2. Percutaneous drainage catheter has been removed. Interpreted by: Esau Love MD Preliminary Report By: Esau Love MD Electronically signed By Esau Love MD Dictated Date: 10/29/2022 10:32:58 AM Prelim Date: 10/29/2022 10:35:26 AM Sign Date: 10/29/2022 10:35:26 AM Ordering Provider: [facility] (MD) 10-29-2022 NoteORIGINAL PROCEDURE: Ultrasound guided percutaneous drainage catheter placement and sclerosis performed on 10/21/2022. INDICATION: 42y/o with a recurrent left lower quadrant abdominal wall seroma. COMPARISON: CT Abdomen dated 10/20/2022. TECHNIQUE/FINDINGS: The procedure was performed in the VIR Suite following informed consent and a Time Out. Local anesthesia was obtained using 2% lidocaine. With the patient in a supine position, the left lower quadrant of the abdomen was prepped and draped in the usual sterile fashion. Ultrasound was used to localize the left lower quadrant superficial fluid collection. Sonographic evaluation demonstrated a multiloculated superficial fluid collection. Using ultrasound guidance, the collection was entered with a 7 cm, 18-G needle. A 0.035 inch guidewire was inserted into the collection through the needle. The track was dilated to 8-F. Over the guidewire, an 8-F locking pigtail catheter was placed into the collection. The catheter pigtail within the collection was visible by ultrasound. Aspiration of the drainage catheter returned approximately 50 mL of fluid. Sclerosis of the residual seroma cavity was then performed utilizing a total volume of 50 mL 95% ethanol, which was allowed to dwell within the cavity. The drainage catheter was then placed to suction bag drainage. There were no immediate complications. IMPRESSION: 1. Successful percutaneous 8-F locking pigtail catheter placement into a superficial left lower quadrant abdominal seroma. 2. Technically successful sclerosis of the residual seroma using 50 mL ethanol sclerosant. Interpreted by: Esau Love MD Preliminary Report By: Esau Love MD Electronically signed By Esau Love MD Dictated Date: 10/29/2022 10:27:07 AM Prelim Date: 10/29/2022 10:32:48 AM Sign Date: 10/29/2022 10:32:48 AM Ordering Provider: [facility] (MD)10-28-2022 History and physical note IR PREPROCEDURE H&P UPDATE IF A HISTORY AND PHYSICAL EXAMINATION HAS BEEN COMPLETED PRIOR TO ADMISSION TO THE HOSPITAL, AN UPDATED EXAMINATION MUST BE COMPLETED AND DOCUMENTED WITHIN 24 HOURS AFTER ADMISSION OR REGISTRATION BUT BEFORE A SURGICAL PROCEDURE. I have examined the patient, reviewed the H&P, and there are no changes unless noted below: _ The most recent H&P/Office Note was performed on 10/10/2022 and can be found in the [facility] Electronic Medical Records ([facility]). Roshni Flores PA-C Interventional Radiology Pager [phone] IR Dept [id number] Available on [facility] Digitally Signed by ROSHNI FLORES PA-C on 10/28/2022 05:27 PM [id number]* Farrah Mcallister RN: SIGN, AUTHOR, SIGN, AUTHOR, PERFORM Event Display: IR Procedure Record Authored Date: [id number] IR Procedure Record Summary Primary Physician: Finalized Date/Time: 10/28/22 15:00:43 Pt. Name: GA PATRICKLENORA Marquez/Sex: 1980 Male Med Rec #: [id number] Physician: Financial #: [id number] Pt. Type: O Room/Bed: / Admit/Disch: 10/28/22 11:44:00 - Institution: Allergies identified in patient's electronic medical record at time of printing on 10/28/22 Entry 1 Entry 2 Entry 3 Substance Keflex Keppra Tape, Paper Reaction Type Allergy Allergy Side Effect Last Modified By: Izabel Small RN, RN Anne E KINDBOM, RN JANE 10/31/16:03:04 08/10/13 02:23:55 08/23/13 02:36:21 Entry 4 Entry 5 Substance morphine naproxen Reaction Type Allergy Allergy Last Modified By: IBETH Skelton RN James M 08/10/13 02:22:39 09/05/17 22:20:56 Case Attendance- IR Entry 1 Entry 2 Entry 3 Case Attendee ESAU LOVE [place], Field Naturalist Community HealthBrandie Field Naturalist Role Performed Radiologist Procedure Scrub Technologist Circulating Technologist Details Time In 10/28/22 14:52:00 10/28/22 14:40:00 10/28/22 14:40:00 Time Out 10/28/22 15:02:00 10/28/22 15:02:00 10/28/22 15:02:00 Procedure/Preference IR Drainage Cath IR Drainage Cath IR Drainage Cath Card Removal Fluoro Guide SN Removal Fluoro Guide SN Removal Fluoro Guide SN Last Modified By: Fararh Mcallister RN, Brittaney RN Magee, Brittaney RN 10/28/22 14:58:01 10/28/22 14:58:01 10/28/22 14:58:01 Entry 4 Case Attendee Farrah Mcallister RN Role Performed Custom Van Converter 1 Details Time In 10/28/22 14:40:00 Time Out 10/28/22 15:02:00 Procedure/Preference IR Drainage Cath Card Removal Fluoro Guide SN Last Modified By: Farrah Mcallister RN 10/28/22 14:58:01 Radiology Procedures- IR Entry 1 Procedure/Preference IR Drainage Cath Actual Procedure ir drain cath inj for Card Removal Fluoro Guide SN eval sn Primary Procedure Yes Primary Surgeon ESAU LOVE MD Anesthesia/Sedation None Type Additional Procedure Times Start 10/28/22 14:52:00 Stop 10/28/22 14:55:00 Specialty Service SN Radiology Procedure EBL 0 mL Last Modified By: Farrah Mcallister RN 10/28/22 14:57:42 Radiology Procedure Details - IR Entry 1 Radiology Sedation Case Times Sedation Total Time 0 Radiology - Fluid/Drainage Radiology Contrast Contrast Used? Yes Dose 1 mL Medication OMNIPAQUE 300 50ML 10/PK Y-530 [facility] [id number] Radiology Flouroscopy Fluoroscopy Used? Yes Fluoro Dose (mGy) 64 Fluoro Time 0.4 min Radiology Local Local Used? No Radiology Procedure Site Site/Location left abdomen Site Condition No complications Dressing Type Bioclusive 4 X 5, Gauze Technologist Notes successful removal of sponge 4 X 4 drain cath. Last Modified By: Farrah Mcallister RN 10/28/22 14:57:23 General Case Data - IR Entry 1 Case Information Room AH IR 18 Case Level IR Level 2 Wound Class None Specialty SN Radiology Procedure ASA Class None Diagnosis Preop Diagnosis LLQ seroma s-p drain Postop Same As Preop Yes and sclerosis Postop Diagnosis LLQ seroma s-p drain and sclerosis Last Modified By: Farrah Mcallister RN 10/28/22 14:51:32 Procedure Case Times- IR Entry 1 Patient In Procedure Patient In OR 10/28/22 14:40:00 Patient Out of OR 10/28/22 15:02:00 Procedure Start/Stop Procedure Start Time 10/28/22 14:52:00 Procedure Stop Time 10/28/22 14:55:00 Last Modified By: Farrah Mcallister RN 10/28/22 14:58:00 Immediate Post Procedure Note - IR Entry 1 Immediate Post Yes Procedure Note displayed for Physician to review Closure Technique Closure Technique Other than Primary Last Modified By: Farrah Mcallister RN 10/28/22 14:51:02 Immediate Post Procedure Note - IR Signed By: ESAU LOVE MD 10/28/22 14:55 Allergy Information- IR Entry 1 Allergies Reviewed? Yes Allergies Reviewed Patient With Last Modified By: Farrah Mcallister RN 10/28/22 14:46:42 Radiology Protocols/Time Out- IR Entry 1 Preprocedure Clinician Verifies Correct patient ID When Clinically Confirmation of correct using name & date Indicated side(s) and site(s), or MRN, Accurate Correct diagnostic and procedure, complete radiology tests Informed Consent, H & P available update immediately prior to procedure, if applicable OR/Procedure Room/Bedside Time 10/28/22 14:52:00 Clinician Verifies Correct patient identity including EMR & records using name and date or medical record number, Accurate procedure consent form, Correct patient position, Necessary equipment is available When Applicable Confirmation correct Team Members ESAU LOVE MD, side and site marked, Present for Time Out Sky Goff Relevant images and Vanessa Celeste, results are properly Brandie Devang Field Naturalist, labeled and Farrah Mcallister RN appropriately displayed, Alcohol based prep dry Instrument Sterility Procedure IR Drainage Cath Removal Fluoro Guide SN Last Modified By: Farrah Mcallister RN 10/28/22 14:56:00 Skin Prep- IR Entry 1 Procedure IR Drainage Cath Removal Fluoro Guide SN Skin Prep Prep Area Abdomen Side Left By Sky Goff Prep Agents Chloraprep Suzie Remy Hair Removal Method N/A Last Modified By: Farrah Mcallister RN 10/28/22 14:56:01 Patient Positioning- IR Entry 1 Procedure IR Drainage Cath Body Position OP Supine Removal Fluoro Guide SN Feet Uncrossed? Yes Pressure Points Yes Checked Last Modified By: Farrah Mcallister RN 10/28/22 14:56:00 Radiology Procedure Plan - IR Entry 1 Radiology - Nursing Care Plan Outcome Statement The patient Outcome Statement The patient receives demonstrates knowledge Cont. appropriate of the expected medication(s), safely responses to the administered during the operative/invasive perioperative/invasive procedure., The period., The patient is patient's value system, free from signs and lifestyle, ethnicity, symptoms of injury and culture are caused by extraneous considered, respected, objects (equipment, and incorporated in the instrumentation, perioperative plan of sponges, or sharps). care., The patient is free from signs and symptoms of infection. Radiology - Action Plan Outcomes Met? Yes Arborer Farrah Mcallister RN Completing Procedure Plan Last Modified By: Farrah Mcallister RN 10/28/22 14:51:12 Case Comments <None> Finalized By: Farrah Mcallister RN Document Signatures Signed By: Farrah Mcallister RN 10/28/22 14:58 Farrah Mcallister RN 10/28/22 15:00 [facility] 05-15-2023 Hospital Discharge instructions Patient Education 10/28/2022 14:57:53 Radiology- Procedure/Biopsy 09/29/2019 (CUSTOM) [place] Radiology Procedure/Biopsy Discharge Instructions Interventional Radiology [facility] [address] [place] [address] Today, you had a . This procedure/biopsy was done to help your doctor diagnose and treat the signs and symptoms you have been experiencing. These instructions should be followed after your procedure to reduce the chance of experiencing complications. Please follow the instructions below to reduce the chance of experiencing complications. Diet: Resume your normal diet as tolerated. Drink extra fluids. Activity: Rest for the remainder of the day. You may resume your normal activity tomorrow. You may bathe/shower after 24 hours. Do not soak or submerge site (including swimming or hot tubs) until a scab forms. No heavy lifting, pushing, or straining. Dressing: Check the site for bleeding. Apply pressure to the site if bleeding excessively and call your physician. Change the band aid as needed; it can be removed after 24 hours. Keep the site dry at all times until a scab forms over the site. Pain Control: The puncture site may be sore for 1 to 2 days following the procedure. Rjkn-[id number] pain medication should be used for pain or discomfort. Please check with the physician who ordered this procedure for you for their specific recommendations. If your pain is not relieved or becomes more severe, notify the physician who sent you for this procedure. If you were sedated for this procedure: Avoid alcoholic beverages for 24 hours after your procedure. Do not drive or operate heavy machinery for 24 hours after your procedure. Do not make any legal decisions for 24 hours after your procedure. Medication: Please resume on . When to seek medical help: Lightheadedness, dizziness, or fainting. Severe pain or swelling. Severe nausea or vomiting. Infection: fever greater than 101 degrees, chills, redness, warmth, swelling, bleeding, or pus frompuncture site. If you experience any of these issues during the first 24 hours, please follow the instruction below: 8:00 am- 5:00 pm call [phone] After 5:00 pm call [phone] After 24 hours, contact the physician who ordered this procedure for you. Obtaining test results: Please make an appointment with your doctor to obtain your test results. They are usually availablewithin 4 to 7 business days. Do not assume everything is normal if you have not heard from your doctor or medical facility. It is important for you to follow up on all of your test results. Special Instructions: Follow Up Care 10/21/2022 14:11:56 With:Follow up with primary care provider Address:Unknown When: Unknown [facility] 05-15-2023 Note IR Procedure Record Summary Primary Physician: Finalized Date/Time: 10/28/22 15:00:43 Pt. Name: PATRICK KOROMA Cesar Marquez/Sex: 1980 Male Med Rec #: [id number] Physician: Financial #: [id number] Pt. Type: O Room/Bed: / Admit/Disch: 10/28/22 11:44:00 - Institution: Allergies identified in patient's electronic medical record at time of printing on 10/28/22 Entry 1 Entry 2 Entry 3 Substance Keflex Keppra Tape, Paper Reaction Type Allergy Allergy Side Effect Last Modified By: Izabel Small RNIBETH RN JANE 10/31/16 23:03:04 08/10/13 02:23:55 08/23/13 02:36:21 Entry 4 Entry 5 Substance morphine naproxen Reaction Type Allergy Allergy Last Modified By: IBETH Skelton RN James M 08/10/13 02:22:39 09/05/17 22:20:56 Case Attendance- IR Entry 1 Entry 2 Entry 3 Case Attendee ESAU LOVE [place], Field Naturalist Vanessa, Brandie Remy Field Naturalist Role Performed Radiologist Procedure Scrub Technologist Circulating Technologist Details Time In 10/28/22 14:52:00 10/28/22 14:40:00 10/28/22 14:40:00 Time Out 10/28/22 15:02:00 10/28/22 15:02:00 10/28/22 15:02:00 Procedure/Preference IR Drainage Cath IR Drainage Cath IR Drainage Cath Card Removal Fluoro Guide SN Removal Fluoro Guide SN Removal Fluoro Guide SN Last Modified By: Farrah Mcallister RN, Brittaney RN Magee, Brittaney RN 10/28/22 14:58:01 10/28/22 14:58:01 10/28/22 14:58:01 Entry 4 Case Attendee Farrah Mcallister RN Role Performed Custom Van Converter 1 Details Time In 10/28/22 14:40:00 Time Out 10/28/22 15:02:00 Procedure/Preference IR Drainage Cath Card Removal Fluoro Guide SN Last Modified By: Farrah Mcallister RN 10/28/22 14:58:01 Radiology Procedures- IR Entry 1 Procedure/Preference IR Drainage Cath Actual Procedure ir drain cath inj for Card Removal Fluoro Guide SN eval sn Primary Procedure Yes Primary Surgeon ESAU LOVE MD Anesthesia/Sedation None Type Additional Procedure Times Start 10/28/22 14:52:00 Stop 10/28/22 14:55:00 Specialty Service SN Radiology Procedure EBL 0 mL Last Modified By: Farrah Mcallister RN 10/28/22 14:57:42 Radiology Procedure Details - IR Entry 1 Radiology Sedation Case Times Sedation Total Time 0 Radiology - Fluid/Drainage Radiology Contrast Contrast Used? Yes Dose 1 mL Medication OMNIPAQUE 300 50ML 10/PK Y-530 [facility] 2826-2431-67 Radiology Flouroscopy Fluoroscopy Used? Yes Fluoro Dose (mGy) 64 Fluoro Time 0.4 min Radiology Local Local Used? No Radiology Procedure Site Site/Location left abdomen Site Condition No complications Dressing Type Bioclusive 4 X 5, Gauze Technologist Notes successful removal of sponge 4 X 4 drain cath. Last Modified By: Farrah Mcallister RN 10/28/22 14:57:23 General Case Data - IR Entry 1 Case Information Room AH IR 18 Case Level IR Level 2 Wound Class None Specialty SN Radiology Procedure ASA Class None Diagnosis Preop Diagnosis LLQ seroma s-p drain Postop Same As Preop Yes and sclerosis Postop Diagnosis LLQ seroma s-p drain and sclerosis Last Modified By: Farrah Mcallister RN 10/28/22 14:51:32 Procedure Case Times- IR Entry 1 Patient In Procedure Patient In OR 10/28/22 14:40:00 Patient Out of OR 10/28/22 15:02:00 Procedure Start/Stop Procedure Start Time 10/28/22 14:52:00 Procedure Stop Time 10/28/22 14:55:00 Last Modified By: Farrah Mcallister RN 10/28/22 14:58:00 Immediate Post Procedure Note - IR Entry 1 Immediate Post Yes Procedure Note displayed for Physician to review Closure Technique Closure Technique Other than Primary Last Modified By: Farrah Mcallister RN 10/28/22 14:51:02 Immediate Post Procedure Note - IR Signed By: ESAU LOVE MD 10/28/22 14:55 Allergy Information- IR Entry 1 Allergies Reviewed? Yes Allergies Reviewed Patient With Last Modified By: Farrah Mcallister RN 10/28/22 14:46:42 Radiology Protocols/Time Out- IR Entry 1 Preprocedure Clinician Verifies Correct patient ID When Clinically Confirmation of correct using name & date Indicated side(s) and site(s), or MRN, Accurate Correct diagnostic and procedure, complete radiology tests Informed Consent, H & P available update immediately prior to procedure, if applicable OR/Procedure Room/Bedside Time 10/28/22 14:52:00 Clinician Verifies Correct patient identity including EMR & records using name and date or medical record number, Accurate procedure consent form, Correct patient position, Necessary equipment is available When Applicable Confirmation correct Team Members ESAU LOVE MD, side and site marked, Present for Time Out Sky Goff Relevant images and Vanessa Celeste, results are properly Brandie Siddiqi Sky Sellers, labeled and Farrah Mcallister RN appropriately displayed, Alcohol based prep dry Instrument Sterility Procedure IR Drainage Cath Removal Fluoro Guide SN Last Modified By: Farrah Mcallister RN 10/28/22 14:56:00 Skin Prep- IR Entry 1 Procedure IR Drainage Cath Removal Fluoro Guide SN Skin Prep Prep Area Abdomen Side Left By Sky Goff Prep Agents Chloraprep Suzie Remy Hair Removal Method N/A Last Modified By: Farrah Mcallister RN 10/28/22 14:56:01 Patient Positioning- IR Entry 1 Procedure IR Drainage Cath Body Position OP Supine Removal Fluoro Guide SN Feet Uncrossed? Yes Pressure Points Yes Checked Last Modified By: Farrah Mcallister RN 10/28/22 14:56:00 Radiology Procedure Plan - IR Entry 1 Radiology - Nursing Care Plan Outcome Statement The patient Outcome Statement The patient receives demonstrates knowledge Cont. appropriate of the expected medication(s), safely responses to the administered during the operative/invasive perioperative/invasive procedure., The period., The patient is patient's value system, free from signs and lifestyle, ethnicity, symptoms of injury and culture are caused by extraneous considered, respected, objects (equipment, and incorporated in the instrumentation, perioperative plan of sponges, or sharps). care., The patient is free from signs and symptoms of infection. Radiology - Action Plan Outcomes Met? Yes Arborer Farrah Mcallister RN Completing Procedure Plan Last Modified By: Farrah Mcallister RN 10/28/22 14:51:12 Case Comments Finalized By: Farrah Mcallister RN Document Signatures Signed By: Farrah Mcallister RN 10/28/22 14:58 Farrah Mcallister RN 10/28/22 15:00 [id number] Summary of episode note Discharge Instructions Thank you for allowing [facility] to assist you with your healthcare needs. The following is importantdischarge information regarding your hospital visit. Your Care Team PHYSICIAN, NONE What to do next Follow Up Appointments Follow Up with Follow up with primary care provider When The Following Activity and Diet Have Been Ordered for You No qualifying data available. No qualifying data available. The Following Equipment Has Been Ordered for You No qualifying data available. The Following Treatments Have Been Ordered for You Discharge Labs No qualifying data available. Discharge Radiology No qualifying data available. Other Therapies No qualifying data available. Post Acute Orders No qualifying data available. Someone Will Contact You Regarding These Home Health Referrals No home referrals have been ordered for you. No one will call you. Allergies Keflex Keppra (Rash) Tape, Paper (Rash) morphine (Rash) naproxen Medications Please ask your primary doctor or pharmacist before taking any other medication not listed, including over the counter drugs, herbal medications, vitamins and or supplements as they may interact withyour home medications. What How Much When Why Instructions Last Dose Unchanged carBAMazepine (TEGretol 200 mg oral tablet) 3 tab(s) by mouth Two (2) times a day Seizure Post-operative state s/p umbilical hernia repair, possible seizure following surgery Please take this list to your next doctor s visit. Bring all medications you take, including over the counter medications, herbals and other supplements with you to your doctor s visit. Patients and families are reminded to discard old lists and to update any records with all medication providers or retail pharmacies. Education Materials [place] Radiology Procedure/Biopsy Discharge Instructions Interventional Radiology [facility] [address] [place] [address] Today, you had a . This procedure/biopsy was done to help your doctor diagnose and treat the signs and symptoms you have been experiencing. These instructions should be followed after your procedure to reduce the chance of experiencing complications. Please follow the instructions below to reduce the chance of experiencing complications. Diet: Resume your normal diet as tolerated. Drink extra fluids. Activity: Rest for the remainder of the day. You may resume your normal activity tomorrow. You may bathe/shower after 24 hours. Do not soak or submerge site (including swimming or hot tubs) until a scab forms. No heavy lifting, pushing, or straining. Dressing: Check the site for bleeding. Apply pressure to the site if bleeding excessively and call your physician. Change the band aid as needed; it can be removed after 24 hours. Keep the site dry at all times until a scab forms over the site. Pain Control: The puncture site may be sore for 1 to 2 days following the procedure. Tral-idc-icfbapf pain medication should be used for pain or discomfort. Please check with the physician who ordered this procedure for you for their specific recommendations. If your pain is not relieved or becomes more severe, notify the physician who sent you for this procedure. If you were sedated for this procedure: Avoid alcoholic beverages for 24 hours after your procedure. Do not drive or operate heavy machinery for 24 hours after your procedure. Do not make any legal decisions for 24 hours after your procedure. Medication: Please resume on . When to seek medical help: Lightheadedness, dizziness, or fainting. Severe pain or swelling. Severe nausea or vomiting. Infection: fever greater than 101 degrees, chills, redness, warmth, swelling, bleeding, or pus frompuncture site. If you experience any of these issues during the first 24 hours, please follow the instruction below: 8:00 am- 5:00 pm call [phone] After 5:00 pm call [phone] After 24 hours, contact the physician who ordered this procedure for you. Obtaining test results: Please make an appointment with your doctor to obtain your test results. They are usually availablewithin 4 to 7 business days. Do not assume everything is normal if you have not heard from your doctor or medical facility. It is important for you to follow up on all of your test results. Special Instructions: Additional Information VACCINATE! IT SAVES LIVES! Members of the community who have not yet received the COVID-19 vaccine and would like to receive it can visit one of [facility] vaccine clinics. There are many vaccine clinic locations within the [facility]. For locations and available times, please visit [email or web address] It is important to note that some COVID mobile vaccine clinics are held outdoors and may be canceled in rainy or stormy conditions. To learn more about pediatric vaccinations (ages 5-11), we invite you to visit the [facility] webpage. [email or web address]://[email or web address]/pages/[email or web address]-Vogtk-Pwchihiqhtp-Djvvjzfsnb-[email or web address]-[email or web address] [email or web address].htmlTo learn more about the COVID-19 vaccine, we invite you to visit the CDC website for a list of frequently asked questions.https://www.cdc.gov/coronavirus/2019-ncov/vaccines/faq.html [facility] Patient Portal Access Instructions: Stay connected with your healthcare team and access your personal medical information anytime with the [facility] Patient Portal. Please follow the directions below to create your [facility] account: 1.Access the email account you provided upon registration to the hospital/physician office.2.Look for an invitation email from [facility].3.Open the email and access the invitation link: AcceptInvitation to [facility].4.Fill in the required [place] to create your account. To access your account, visit [email or web address]. Click the blue button labeled Access Patient Portal and then log in with the username and password that you created in the steps above. You will be able to view your test results, lab results, a summary of your visits, upcoming appointments and more. There is also a convenient messaging option where you can send secure messages to your p floydvider. In addition, you will have the ability to download any documents or summaries to your computer and/or send the information securely to a physician. Remember that your healthcare information is confidential, so carefully consider who you will allowto register on the [email or web address] Patient Portal for access to your information. You can also access the [facility] Patient Portal on the [facility] yen. Simply click on Patient Portal and then log into your account. If you would like to receive a full copy of your medical records, please contact the [facility] Medical Records Department by calling [phone], Friday through Friday between 8 a.m. and 4:30 p.m. HOW TO SAFELY DISPOSE OF PRESCRIPTION MEDICATIONS Please use one of the following methods to safely dispose of your unused medications. 1.Use a drug disposal kit: the drug disposal pouch allows you to safely discard your old and unuseddrugs. Ask your nurse to give you one when you are discharged.2.Visit a local take-back location: Many local pharmacies and police departments have programs that collect old and unwanted prescriptiondrugs. Call your local pharmacy or go to http://Jiberish.Zenefits/3O9Yc9q to find one close to you.3.Make use of household items: Use cat litter or old coffee grounds to dispose medications if other options arenot available. Mix your drugs with these household products, seal them in an airtight container andthrow it into the garbage. Call [facility]: [phone] to be sure your drugs can be disposed of in this way. Some medicines may require a different approach.4.Never flush your medications down the toilet. IF YOU HAVE BEEN PRESCRIBED AN OPIOID FOR PAIN If you have been prescribed an opioid (such as hydrocodone, oxycodone or morphine), it is critical to understand the possible side effects and risks of opioid pain medications. Even when taken as directed, opioids can have several side effects including: Tolerance, meaning you might need to take more of a medication for the same pain relief. Nausea, vomiting and/or constipation. Sleepiness, dizziness, dry mouth, confusion, depression or itching. Physical dependence, meaning you have withdrawal symptoms when a medication is stopped, can develop within a few days. KNOW YOUR RESPONSIBILITIES It is important to know exactly how much and how often to take the opioid pain medications you are prescribed. Never take opioids in higher amounts or more often than prescribed. Do not combine opioids with alcohol or other drugs that cause drowsiness, such as benzodiazepines, also known as benzos, including diazepam and alprazolam, muscle relaxants or sleep aids. Never sell or share prescription opioids. This is illegal. Store opioids in a secure place and out of reach of others (including children, family, friends and visitors). The last page of this document has been signed and retained as a CHART COPY. Signatures Patient Education Materials Radiology- Procedure/Biopsy 09/29/2019 (CUSTOM) Medication Leaflets My discharge plan and instructions have been reviewed and explained to me and I,PATRICK KOROMA understand my current condition and have read and understand these discharge instructions. I have received a written copy of the plan/instructions. If I have questions, I am aware that I should contact my doctor. Patient/Mica Miner Signature: Date/Time: Relationship to Patient: Witness Name/Signature: Date/Time: [id number] Evaluation + Plan noteExtracted from: Title:Preprocedure HP Update Author:ROSHNI HOPE PA-C Date:10/28/22 IR PREPROCEDURE H&P UPDATE IF A HISTORY AND PHYSICAL EXAMINATION HAS BEEN COMPLETED PRIOR TO ADMISSION TO THE HOSPITAL, AN UPDATED EXAMINATION MUST BE COMPLETED AND DOCUMENTED WITHIN 24 HOURS AFTER ADMISSION OR REGISTRATION BUT BEFORE A SURGICAL PROCEDURE. I have examined the patient, reviewed the H&P, and there are no changes unless noted below: _ The most recent H&P/Office Note was performed on 10/10/2022 and can be found in the [facility] Electronic Medical Records ([place]). Roshni Flores PA-C Interventional Radiology Pager [phone] IR Dept [id number] Available on [employer] Future Scheduled Tests Laboratory* Basic Metabolic Panel 11/23/21 * Carbamazepine Level 11/23/21 * Complete Metabolic Panel 11/23/21 [facility] 05-15-2023 Hospital Discharge instructions Patient Education 10/28/2022 02:05:30 Medical Screening Exam, Nonemergent Medical Screening Exam: No Emergency You have had a medical screening exam. The results show that you don t have a condition that needs to be treated in the emergency department. You can safely wait until you can see your healthcare provider for evaluation or treatment. It is up to you to make an appointment for follow-up care. Medical emergencies If you think you have a medical emergency, please come to the emergency department. That s what we are here for. A medical emergency might be severe pain. It might be a condition that gets worse. Or it might be problems with a . The emergency department is open to all who need treatment. But if you don t think you have a serious or life-threatening problem, try these other choices. If you have a primary care doctor: Call your doctor before coming to the emergency department. After office hours, someone from your doctor s office is on-call by phone. The person on-call may be able to give you advice over the phone on how to take care of the problem You may be able to get an appointment to see your doctor. If you don t have a primary care doctor: Call the referral doctor or clinic shown below during office hours. You should be able to make an appointment to be seen. If you aren t sure whether you are having an emergency, you can always return to the emergency department to be looked at. Phone advice from the emergency department We are here 24 hours a day to give emergency care. But this hospital does not give phone advice formedical conditions. If you need advice for a condition that can t wait to be seen by your doctor, you will need to come back to this facility in person. [phone] [employer] [place] [address]. All rights reserved. This information is not intended as a substitute for professional medical care. Always follow yourhealthcare professional's instructions. Follow Up Care 10/28/2022 01:29:29 With:The IR department at [facility] Address:Unknown When:Within 1 Day(s) Comments:Follow-up as scheduled later today to have the drain removed.Return to the ED for any problems or concerns. [facility] 05-15-2023 Note Discharge Instructions Thank you for allowing [facility] to assist you with your healthcare needs. The following is importantdischarge information regarding your hospital visit. Diagnosis from Today's Visit Drain Problem Drain leakage What to Do Next Instructions from Your Care Team No qualifying data available. Post Acute Orders No qualifying data available. You Need to Schedule the Following Appointments Follow Up with The IR department at [facility] When In 1 day Why: Follow-up as scheduled later today to have the drain removed. Return to the ED for any problems or concerns. Allergies Keflex Keppra (Rash) Tape, Paper (Rash) morphine (Rash) naproxen Medications Please ask your primary doctor or pharmacist before taking any other medication not listed, including over the counter drugs, herbal medications, vitamins and or supplements as they may interact withyour home medications. Please take this list to your next doctor s visit. Bring all medications you take, including over the counter medications, herbals and other supplements with you to your doctor s visit. Patients and families are reminded to discard old lists and to update any records with all medication providers or retail pharmacies. Education Materials Medical Screening Exam: No Emergency You have had a medical screening exam. The results show that you don t have a condition that needs to be treated in the emergency department. You can safely wait until you can see your healthcare provider for evaluation or treatment. It is up to you to make an appointment for follow-up care. Medical emergencies If you think you have a medical emergency, please come to the emergency department. That s what we are here for. A medical emergency might be severe pain. It might be a condition that gets worse. Or it might be problems with a . The emergency department is open to all who need treatment. But if you don t think you have a serious or life-threatening problem, try these other choices. If you have a primary care doctor: Call your doctor before coming to the emergency department. After office hours, someone from your doctor s office is on-call by phone. The person on-call may be able to give you advice over the phone on how to take care of the problem You may be able to get an appointment to see your doctor. If you don t have a primary care doctor: Call the referral doctor or clinic shown below during office hours. You should be able to make an appointment to be seen. If you aren t sure whether you are having an emergency, you can always return to the emergency department to be looked at. Phone advice from the emergency department We are here 24 hours a day to give emergency care. But this hospital does not give phone advice formedical conditions. If you need advice for a condition that can t wait to be seen by your doctor, you will need to come back to this facility in person. [phone] [employer]. [address] [place] [address], [place] [address]. All rights reserved. This information is not intended as a substitute for professional medical care. Always follow yourhealthcare professional's instructions. Additional Information VACCINATE! IT SAVES LIVES! Members of the community who have not yet received the COVID-19 vaccine and would like to receive it can visit one of [facility] vaccine clinics. There are many vaccine clinic locations within the [facility]. For locations and available times, please visit www.[email or web address].[email or web address]/. It is important to note that some COVID mobile vaccine clinics are held outdoors and may be canceled in rainy or stormy conditions. To learn more about pediatric vaccinations (ages 5-11), we invite you to visit the [facility] webpage. [email or web address]/pages/3223-Zqilv-Eiumkqsyxfg-Lavfxveysr-Hvqkw-[email or web address] stions.htmlTo learn more about the COVID-19 vaccine, we invite you to visit the CDC website for a list of frequently asked questions. https://www.cdc.gov/coronavirus/2019-ncov/vaccines/faq.html [facility] [employer] Patient Portal Access Instructions: Stay connected with your healthcare team and access your personal medical information anytime with the [facility] [employer] Patient Portal. If you would like a full copy of your medical records please contact the [facility] Medical Records Department Friday through Friday between 8a.m. and 4:30p.m. Please follow the directions below to access the portal: 1.Access the email account you provided upon registration to the hospital.2.Look for an invitation email from [facility].3.Open the email and access the invitation link: Accept Invitation to [employer]4.Fill in the required vegas to create your account. Sign into [email or web address] with your username and password that you created in the above steps to stay up to date. You can then view a summary of results, a summary of your visits, and the ability to download your summaries to your computer or send the information securely to a physician. Remember that your healthcare information is confidential, so carefully consider who you will allow to register on the [facility] [employer] Patient Portal for access to your information. You can also access the [employer] Patient Portal on the [employer]. Simply click on Health Records under [employer] and then click on the Wandy logo. HOW TO SAFELY DISPOSE OF PRESCRIPTION MEDICATIONS Please use one of the following methods to safely dispose of your unused medications. 1.Use a drug disposal kit: the drug disposal pouch allows you to safely discard your old and unuseddrugs. Ask your nurse to give you one when you are discharged.2.Visit a local take-back location: Many local pharmacies and police departments have programs that collect old and unwanted prescriptiondrugs. Call your local pharmacy or go to http://Jiberish.Zenefits/9W8Hd1r to find one close to you.3.Make use of household items: Use cat litter or old coffee grounds to dispose medications if other options arenot available. Mix your drugs with these household products, seal them in an airtight container andthrow it into the garbage. Call [facility]: [phone] to be sure your drugs can be disposed of in this way. Some medicines may require a different approach.4.Never flush your medications down the toilet. IF YOU HAVE BEEN PRESCRIBED AN OPIOIDS FOR PAIN If you have been prescribed an opioid (such as hydrocodone, oxycodone or morphine), it is critical to understand the possible side effects and risks of opioid pain medications. Even when taken as directed, opioids can have several side effects including: Tolerance, meaning you might need to take more of a medication for the same pain relief. Nausea, vomiting and/or constipation. Sleepiness, dizziness, dry mouth, confusion, depression or itching. Physical dependence, meaning you have withdrawal symptoms when a medication is stopped ? this can develop within a few days. KNOW YOUR RESPONSIBILITIES It is important to know exactly how much and how often to take the opioid pain medications you are prescribed. Never take opioids in higher amounts or more often than prescribed. Do not combine opioids with alcohol or other drugs that cause drowsiness, such as benzodiazepines, also known as benzos,including diazepam and alprazolam, muscle relaxants or sleep aids. Never sell or share prescriptionopioids. This is illegal. Store opioids in a secure place and out of reach of others (including children, family, friends and visitors). The last page(s) of this document has been signed and retained as a CHART COPY Signatures Patient Education Materials Medical Screening Exam, Nonemergent Medication Leaflets My discharge plan and instructions have been reviewed and explained to me and I,PATIRCK KOROMA understand my current condition and have read and understand these discharge instructions. I have received a written copy of the plan/instructions. If I have questions, I am aware that I should contact my doctor. Patient/Mica Miner Signature: Date/Time: Relationship to Patient: Witness Name/Signature: Date/Time: [facility]05-15-2023 Note Discharge Instructions Thank you for allowing [facility] to assist you with your healthcare needs. The following is importantdischarge information regarding your hospital visit. Diagnosis from Today's Visit Drain Problem Drain leaking What to Do Next Instructions from Your Care Team No qualifying data available. Post Acute Orders No qualifying data available. You Need to Schedule the Following Appointments Follow Up with The IR department at [facility] When In 1 day Why: Follow-up as scheduled later today to have the drain removed. Return to the ED for any problems or concerns. Allergies Keflex Keppra (Rash) Tape, Paper (Rash) morphine (Rash) naproxen Medications Please ask your primary doctor or pharmacist before taking any other medication not listed, including over the counter drugs, herbal medications, vitamins and or supplements as they may interact withyour home medications. Please take this list to your next doctor s visit. Bring all medications you take, including over the counter medications, herbals and other supplements with you to your doctor s visit. Patients and families are reminded to discard old lists and to update any records with all medication providers or retail pharmacies. Education Materials Medical Screening Exam: No Emergency You have had a medical screening exam. The results show that you don t have a condition that needs to be treated in the emergency department. You can safely wait until you can see your healthcare provider for evaluation or treatment. It is up to you to make an appointment for follow-up care. Medical emergencies If you think you have a medical emergency, please come to the emergency department. That s what we are here for. A medical emergency might be severe pain. It might be a condition that gets worse. Or it might be problems with a . The emergency department is open to all who need treatment. But if you don t think you have a serious or life-threatening problem, try these other choices. If you have a primary care doctor: Call your doctor before coming to the emergency department. After office hours, someone from your doctor s office is on-call by phone. The person on-call may be able to give you advice over the phone on how to take care of the problem You may be able to get an appointment to see your doctor. If you don t have a primary care doctor: Call the referral doctor or clinic shown below during office hours. You should be able to make an appointment to be seen. If you aren t sure whether you are having an emergency, you can always return to the emergency department to be looked at. Phone advice from the emergency department We are here 24 hours a day to give emergency care. But this hospital does not give phone advice formedical conditions. If you need advice for a condition that can t wait to be seen by your doctor, you will need to come back to this facility in person. [phone] [employer]. [address] [place] [address], [place] [address]. All rights reserved. This information is not intended as a substitute for professional medical care. Always follow yourhealthcare professional's instructions. Additional Information VACCINATE! IT SAVES LIVES! Members of the community who have not yet received the COVID-19 vaccine and would like to receive it can visit one of [facility] vaccine clinics. There are many vaccine clinic locations within the [facility]. For locations and available times, please visit www.gettheshot.coronavirus.[place].gov/. It is important to note that some COVID mobile vaccine clinics are held outdoors and may be canceled in rainy or stormy conditions. To learn more about pediatric vaccinations (ages 5-11), we invite you to visit the [facility] webpage. https://www.akEuroMillions.co Ltd.s.org/pages/3534-Lluke-Krehfjahvxm-Anbrbpxwpq-Cutos-Rwf stions.htmlTo learn more about the COVID-19 vaccine, we invite you to visit the CDC website for a list of frequently asked questions. https://www.cdc.gov/coronavirus/2019-ncov/vaccines/faq.html [employer] Patient Portal Access Instructions: Stay connected with your healthcare team and access your personal medical information anytime with the [employer] Patient Portal. If you would like a full copy of your medical records please contact the [facility] Medical Records Department Friday through Friday between 8a.m. and 4:30p.m. Please follow the directions below to access the portal: 1.Access the email account you provided upon registration to the hospital.2.Look for an invitation email from [facility].3.Open the email and access the invitation link: Accept Invitation to [employer]4.Fill in the required vegas to create your account. Sign into [email or web address] with your username and password that you created in the above steps to stay up to date. You can then view a summary of results, a summary of your visits, and the ability to download your summaries to your computer or send the information securely to a physician. Remember that your healthcare information is confidential, so carefully consider who you will allow to register on the [employer] Patient Portal for access to your information. You can also access the [employer] Patient Portal on the [employer]. Simply click on Health Records under [employer] and then click on the [employer] logo. HOW TO SAFELY DISPOSE OF PRESCRIPTION MEDICATIONS Please use one of the following methods to safely dispose of your unused medications. 1.Use a drug disposal kit: the drug disposal pouch allows you to safely discard your old and unuseddrugs. Ask your nurse to give you one when you are discharged.2.Visit a local take-back location: Many local pharmacies and police departments have programs that collect old and unwanted prescriptiondrugs. Call your local pharmacy or go to http://Jiberish.Zenefits/8Q1Wv6b to find one close to you.3.Make use of household items: Use cat litter or old coffee grounds to dispose medications if other options arenot available. Mix your drugs with these household products, seal them in an airtight container andthrow it into the garbage. Call [facility]: [phone] to be sure your drugs can be disposed of in this way. Some medicines may require a different approach.4.Never flush your medications down the toilet. IF YOU HAVE BEEN PRESCRIBED AN OPIOIDS FOR PAIN If you have been prescribed an opioid (such as hydrocodone, oxycodone or morphine), it is critical to understand the possible side effects and risks of opioid pain medications. Even when taken as directed, opioids can have several side effects including: Tolerance, meaning you might need to take more of a medication for the same pain relief. Nausea, vomiting and/or constipation. Sleepiness, dizziness, dry mouth, confusion, depression or itching. Physical dependence, meaning you have withdrawal symptoms when a medication is stopped ? this can develop within a few days. KNOW YOUR RESPONSIBILITIES It is important to know exactly how much and how often to take the opioid pain medications you are prescribed. Never take opioids in higher amounts or more often than prescribed. Do not combine opioids with alcohol or other drugs that cause drowsiness, such as benzodiazepines, also known as benzos,including diazepam and alprazolam, muscle relaxants or sleep aids. Never sell or share prescriptionopioids. This is illegal. Store opioids in a secure place and out of reach of others (including children, family, friends and visitors). The last page(s) of this document has been signed and retained as a CHART COPY Signatures Patient Education Materials Medical Screening Exam, Nonemergent Medication Leaflets My discharge plan and instructions have been reviewed and explained to me and I,PATRICK KOROMA understand my current condition and have read and understand these discharge instructions. I have received a written copy of the plan/instructions. If I have questions, I am aware that I should contact my doctor. Patient/Mica Miner Signature: Date/Time: Relationship to Patient: Witness Name/Signature: Date/Time: [facility]05-15-2023 Note Discharge Instructions Thank you for allowing [facility] to assist you with your healthcare needs. The following is importantdischarge information regarding your hospital visit. Diagnosis from Today's Visit Drain Problem Drain leaking What to Do Next Instructions from Your Care Team No qualifying data available. Post Acute Orders No qualifying data available. You Need to Schedule the Following Appointments Follow Up with The IR department at [facility] When In 1 day Why: Follow-up as scheduled later today to have the drain removed. Return to the ED for any problems or concerns. Allergies Keflex Keppra (Rash) Tape, Paper (Rash) morphine (Rash) naproxen Medications Please ask your primary doctor or pharmacist before taking any other medication not listed, including over the counter drugs, herbal medications, vitamins and or supplements as they may interact withyour home medications. Please take this list to your next doctor s visit. Bring all medications you take, including over the counter medications, herbals and other supplements with you to your doctor s visit. Patients and families are reminded to discard old lists and to update any records with all medication providers or retail pharmacies. Education Materials Medical Screening Exam: No Emergency You have had a medical screening exam. The results show that you don t have a condition that needs to be treated in the emergency department. You can safely wait until you can see your healthcare provider for evaluation or treatment. It is up to you to make an appointment for follow-up care. Medical emergencies If you think you have a medical emergency, please come to the emergency department. That s what we are here for. A medical emergency might be severe pain. It might be a condition that gets worse. Or it might be problems with a . The emergency department is open to all who need treatment. But if you don t think you have a serious or life-threatening problem, try these other choices. If you have a primary care doctor: Call your doctor before coming to the emergency department. After office hours, someone from your doctor s office is on-call by phone. The person on-call may be able to give you advice over the phone on how to take care of the problem You may be able to get an appointment to see your doctor. If you don t have a primary care doctor: Call the referral doctor or clinic shown below during office hours. You should be able to make an appointment to be seen. If you aren t sure whether you are having an emergency, you can always return to the emergency department to be looked at. Phone advice from the emergency department We are here 24 hours a day to give emergency care. But this hospital does not give phone advice formedical conditions. If you need advice for a condition that can t wait to be seen by your doctor, you will need to come back to this facility in person. [phone] [employer]. [address] [place] [address]. All rights reserved. This information is not intended as a substitute for professional medical care. Always follow yourhealthcare professional's instructions. Additional Information VACCINATE! IT SAVES LIVES! Members of the community who have not yet received the COVID-19 vaccine and would like to receive it can visit one of [facility] vaccine clinics. There are many vaccine clinic locations within the [facility]. For locations and available times, please visit www.gettheshot.coronavirus.[place].gov/. It is important to note that some COVID mobile vaccine clinics are held outdoors and may be canceled in rainy or stormy conditions. To learn more about pediatric vaccinations (ages 5-11), we invite you to visit the [facility] webpage. https://www.[facility].org/pages/4400-Bltxj-Cknvmofhtpx-Dzcbuqfzpn-Ekhek-Msd stions.htmlTo learn more about the COVID-19 vaccine, we invite you to visit the CDC website for a list of frequently asked questions. https://www.cdc.gov/coronavirus/2019-ncov/vaccines/faq.html [facility] Patient Portal Access Instructions: Stay connected with your healthcare team and access your personal medical information anytime with the [employer] Patient Portal. If you would like a full copy of your medical records please contact the [facility] Medical Records Department Friday through Friday between 8a.m. and 4:30p.m. Please follow the directions below to access the portal: 1.Access the email account you provided upon registration to the [facility].2.Look for an invitation email from [facility].3.Open the email and access the invitation link: [facility] to [facility].Fill in the required vegas to create your account. Sign into [email or web address] with your username and password that you created in the above steps to stay up to date. You can then view a summary of results, a summary of your visits, and the ability to download your summaries to your computer or send the information securely to a physician. Remember that your healthcare information is confidential, so carefully consider who you will allow to register on the [employer] Patient Portal for access to your information. You can also access the [facility] Patient Portal on the [employer]. Simply click on Health Records under [employer] and then click on the [employer] logo. HOW TO SAFELY DISPOSE OF PRESCRIPTION MEDICATIONS Please use one of the following methods to safely dispose of your unused medications. 1.Use a drug disposal kit: the drug disposal pouch allows you to safely discard your old and unuseddrugs. Ask your nurse to give you one when you are discharged.2.Visit a local take-back location: Many local pharmacies and police departments have programs that collect old and unwanted prescriptiondrugs. Call your local pharmacy or go to http://bit.Zenefits/2C4Gu5o to find one close to you.3.Make use of household items: Use cat litter or old coffee grounds to dispose medications if other options arenot available. Mix your drugs with these household products, seal them in an airtight container andthrow it into the garbage. Call [facility]: [phone] to be sure your drugs can be disposed of in this way. Some medicines may require a different approach.4.Never flush your medications down the toilet. IF YOU HAVE BEEN PRESCRIBED AN OPIOIDS FOR PAIN If you have been prescribed an opioid (such as hydrocodone, oxycodone or morphine), it is critical to understand the possible side effects and risks of opioid pain medications. Even when taken as directed, opioids can have several side effects including: Tolerance, meaning you might need to take more of a medication for the same pain relief. Nausea, vomiting and/or constipation. Sleepiness, dizziness, dry mouth, confusion, depression or itching. Physical dependence, meaning you have withdrawal symptoms when a medication is stopped ? this can develop within a few days. KNOW YOUR RESPONSIBILITIES It is important to know exactly how much and how often to take the opioid pain medications you are prescribed. Never take opioids in higher amounts or more often than prescribed. Do not combine opioids with alcohol or other drugs that cause drowsiness, such as benzodiazepines, also known as benzos,including diazepam and alprazolam, muscle relaxants or sleep aids. Never sell or share prescriptionopioids. This is illegal. Store opioids in a secure place and out of reach of others (including children, family, friends and visitors). The last page(s) of this document has been signed and retained as a CHART COPY Signatures Patient Education Materials Medical Screening Exam, Nonemergent Medication Leaflets My discharge plan and instructions have been reviewed and explained to me and I,PATRICK KOROMA understand my current condition and have read and understand these discharge instructions. I have received a written copy of the plan/instructions. If I have questions, I am aware that I should contact my doctor. Patient/Mica Miner Signature: Date/Time: Relationship to Patient: Witness Name/Signature: Date/Time: [facility] [id number] Evaluation + Plan noteExtracted from: Title:Preprocedure HP Update Author:ROSHNI HOPE PA-C Date:10/21/22 IR PREPROCEDURE H&P UPDATE IF A HISTORY AND PHYSICAL EXAMINATION HAS BEEN COMPLETED PRIOR TO ADMISSION TO THE HOSPITAL, AN UPDATED EXAMINATION MUST BE COMPLETED AND DOCUMENTED WITHIN 24 HOURS AFTER ADMISSION OR REGISTRATION BUT BEFORE A SURGICAL PROCEDURE. I have examined the patient, reviewed the H&P, and there are no changes unless noted below: _ The most recent H&P/Office Note was performed on 10/10/2022 and can be found in the [facility] Records ([facility] [facility] 911). Roshni Flores PA-C Interventional Radiology Pager [phone] IR Dept [id number] [facility] on [facility] Future Appointments Appointment Date:10/28/2022 01:00:00 PM Scheduled Provider: Location:IR Appointment Type:IR Drainage Cath Injection for Eval Future Scheduled Tests Laboratory* Basic Metabolic Panel 11/23/21 * Carbamazepine Level 11/23/21 * Complete Metabolic Panel 11/23/21 [facility] 05-08-2023 Note* Farrah Mcallister RN: SIGN, AUTHOR, SIGN, AUTHOR, SIGN, AUTHOR, PERFORM Event Display: IR Procedure Record Authored Date: [id number] IR Procedure Record Summary Primary Physician: Finalized Date/Time: 10/21/22 10:43:31 Pt. Name: PATRICK KOROMA/Sex: 1980 Male Med Rec #: [id number] Physician: Financial #: [id number] Pt. Type: O Room/Bed: / Admit/Disch: 10/21/22 08:38:00 - Institution: Allergies identified in patient's electronic medical record at time of printing on 10/21/22 Entry 1 Entry 2 Entry 3 Substance Keflex Keppra Tape, Paper Reaction Type Allergy Allergy Side Effect Last Modified By: Izabel Small RN, RN Anne E KINDBOM, RN JANE 10/31/16 23:03:04 08/10/13 02:23:55 08/23/13 02:36:21 Entry 4 Entry 5 Substance morphine naproxen Reaction Type Allergy Allergy Last Modified By: IBETH Skelton RN James M 08/10/13 02:22:39 09/05/17 22:20:56 Case Attendance- IR Entry 1 Entry 2 Entry 3 Case Attendee ESAU LOVE MD, Brittaney RN Hultman CardiaLen Suzie Remy Role Performed Radiologist Procedure Custom Van Converter 1 Scrub Technologist Details Time In 10/21/22 10:25:00 10/21/22 09:58:00 10/21/22 09:58:00 Time Out 10/21/22 10:38:00 10/21/22 10:38:00 10/21/22 10:38:00 Procedure/Preference IR Sclerotherapy SN IR Sclerotherapy SN IR Sclerotherapy SN Card Last Modified By: Farrah Mcallister RN, Brittaney RN Magee, Brittaney RN 10/21/22 10:38:11 10/21/22 10:38:11 10/21/22 10:38:11 Entry 4 Case Attendee Allie CardiaLen Мария Siddiqi Role Performed Circulating Technologist Details Time In 10/21/22 09:58:00 Time Out 10/21/22 10:38:00 Procedure/Preference IR Sclerotherapy SN Card Last Modified By: Farrah Mcallister RN 10/21/22 10:38:11 Radiology Procedures- IR Entry 1 Procedure/Preference IR Sclerotherapy SN Actual Procedure sclerotherapy seroma Card inj/tube placement Primary Procedure Yes Primary Surgeon ESAU LOVE MD Anesthesia/Sedation Local Type Additional Procedure Times Start 10/21/22 10:25:00 Stop 10/21/22 10:34:00 Specialty Service SN Radiology Procedure EBL 2 mL Last Modified By: Farrah Mcallister RN 10/21/22 10:35:45 Radiology Procedure Details - IR Entry 1 Radiology Sedation Case Times Sedation Total Time 0 Radiology - Fluid/Drainage Radiology Contrast Contrast Used? No Radiology Flouroscopy Fluoroscopy Used? No Fluoro Time 0 Radiology Local Local Used? No Radiology Procedure Site Site/Location LLQ abdomen Site Condition No complications Dressing Type Tagaderm Technologist Notes LLQ abdomen. 8 f x 35 cm m drain placed. Last Modified By: Farrah Mcallister RN 10/21/22 10:37:49 General Case Data - IR Entry 1 Case Information Room AH IR 17 Case Level IR Level 2 Wound Class None Specialty SN Radiology Procedure ASA Class None Diagnosis Preop Diagnosis llq seroma Postop Same As Preop Yes Postop Diagnosis llq seroma Last Modified By: Farrah Mcallister RN 10/21/22 10:06:48 Procedure Case Times- IR Entry 1 Patient In Procedure Patient In OR 10/21/22 09:58:00 Patient Out of OR 10/21/22 10:38:00 Procedure Start/Stop Procedure Start Time 10/21/22 10:25:00 Procedure Stop Time 10/21/22 10:34:00 Last Modified By: Farrah Mcallister RN 10/21/22 10:38:10 Immediate Post Procedure Note - IR Entry 1 Immediate Post Yes Procedure Note displayed for Physician to review Closure Technique Closure Technique Other than Primary Last Modified By: Farrah Mcallister RN 10/21/22 10:06:26 Immediate Post Procedure Note - IR Signed By: ESAU LOVE MD 10/21/22 10:34 Allergy Information- IR Entry 1 Allergies Reviewed? Yes Allergies Reviewed Patient With Last Modified By: Farrah Mcallister RN 10/21/22 10:04:30 Radiology Protocols/Time Out- IR Entry 1 Preprocedure Clinician Verifies Correct patient ID When Clinically Confirmation of correct using name & date Indicated side(s) and site(s), or MRN, Accurate Correct diagnostic and procedure, complete radiology tests Informed Consent, H & P available update immediately prior to procedure, if applicable OR/Procedure Room/Bedside Time 10/21/22 10:25:00 Clinician Verifies Correct patient identity including EMR & records using name and date or medical record number, Accurate procedure consent form, Correct patient position, Necessary equipment is available When Applicable Confirmation correct Team Members ESAU LOVE MD, side and site marked, Present for Time Out Farrah Mcallister RN, Relevant images and Sky Goff results are properly Allie Celeste Rad labeled and Tech Мария Siddiqi appropriately displayed, Alcohol based prep dry Instrument Sterility Procedure IR Sclerotherapy SN Last Modified By: Farrah Mcallister RN 10/21/22 10:25:37 Skin Prep- IR Entry 1 Procedure IR Sclerotherapy SN Skin Prep Prep Area Abdomen Side Left By Sky Goff Prep Agents Chloraprep Suzie K Hair Removal Method Clipped Last Modified By: Farrah Mcallister RN 10/21/22 10:06:11 Patient Positioning- IR Entry 1 Procedure IR Sclerotherapy SN Body Position OP Supine Feet Uncrossed? Yes Pressure Points Yes Checked Last Modified By: Farrah Mcallister RN 10/21/22 10:06:18 Radiology Procedure Plan - IR Entry 1 Radiology - Nursing Care Plan Outcome Statement The patient Outcome Statement The patient receives demonstrates knowledge Cont. appropriate of the expected medication(s), safely responses to the administered during the operative/invasive perioperative/invasive procedure., The period., The patient is patient's value system, free from signs and lifestyle, ethnicity, symptoms of injury and culture are caused by extraneous considered, respected, objects (equipment, and incorporated in the instrumentation, perioperative plan of sponges, or sharps). care., The patient is free from signs and symptoms of infection. Radiology - Action Plan Outcomes Met? Yes Arborer Farrah Mcallister RN Completing Procedure Plan Last Modified By: Farrah Mcallister RN 10/21/22 10:06:38 Transfer Post Procedure- IR Entry 1 RAD - Transport to Recovery Via Ambulatory Post-op Destination Receiving Transported By Allie Field NaturalistVerito Siddiqi Post Procedure Time Out Double Verification Yes Date/Time Verified 10/21/22 10:37:00 of ID band on patient Completed Verfied ID Band on Farrah Mcallister RN by Last Modified By: Farrah Mcallister RN 10/21/22 10:38:07 Case Comments <None> Finalized By: Farrah Mcallister RN Document Signatures Signed By: Farrah Mcallister RN 10/21/22 10:38 Farrah Mcallister RN 10/21/22 10:38 Farrah Mcallister RN 10/21/22 10:43 [facility] 05-08-2023 Note IR Procedure Record Summary Primary Physician: Finalized Date/Time: 10/21/22 10:43:31 Pt. Name: PATRICK KOROMA/Sex: 1980 Male Med Rec #: [id number] Physician: Financial #: [id number] Pt. Type: O Room/Bed: / Admit/Disch: 10/21/22 08:38:00 - Institution: Allergies identified in patient's electronic medical record at time of printing on 10/21/22 Entry 1 Entry 2 Entry 3 Substance Keflex Keppra Tape, Paper Reaction Type Allergy Allergy Side Effect Last Modified By: Izabel Small RN, RN Anne E KINDBOM, RN JANE 10/31/16 23:03:04 08/10/13 02:23:55 08/23/13 02:36:21 Entry 4 Entry 5 Substance morphine naproxen Reaction Type Allergy Allergy Last Modified By: IBETH Skelton RN James M 08/10/13 02:22:39 09/05/17 22:20:56 Case Attendance- IR Entry 1 Entry 2 Entry 3 Case Attendee ESAU LOVE MD, Brittaney RN Hultman Field NaturalistVerito Remy Role Performed Radiologist Procedure Custom Van Converter 1 Scrub Technologist Details Time In 10/21/22 10:25:00 10/21/22 09:58:00 10/21/22 09:58:00 Time Out 10/21/22 10:38:00 10/21/22 10:38:00 10/21/22 10:38:00 Procedure/Preference IR Sclerotherapy SN IR Sclerotherapy SN IR Sclerotherapy SN Card Last Modified By: Farrah Mcallister RN, Brittaney RN Magee, Brittaney RN 10/21/22 10:38:11 10/21/22 10:38:11 10/21/22 10:38:11 Entry 4 Case Attendee Allie Field NaturalistVerito Siddiqi Role Performed Circulating Technologist Details Time In 10/21/22 09:58:00 Time Out 10/21/22 10:38:00 Procedure/Preference IR Sclerotherapy SN Card Last Modified By: Farrah Mcallister RN 10/21/22 10:38:11 Radiology Procedures- IR Entry 1 Procedure/Preference IR Sclerotherapy SN Actual Procedure sclerotherapy seroma Card inj/tube placement Primary Procedure Yes Primary Surgeon ESAU LVOE MD Anesthesia/Sedation Local Type Additional Procedure Times Start 10/21/22 10:25:00 Stop 10/21/22 10:34:00 Specialty Service SN Radiology Procedure EBL 2 mL Last Modified By: Farrah Mcallister RN 10/21/22 10:35:45 Radiology Procedure Details - IR Entry 1 Radiology Sedation Case Times Sedation Total Time 0 Radiology - Fluid/Drainage Radiology Contrast Contrast Used? No Radiology Flouroscopy Fluoroscopy Used? No Fluoro Time 0 Radiology Local Local Used? No Radiology Procedure Site Site/Location LLQ abdomen Site Condition No complications Dressing Type Tagaderm Technologist Notes LLQ abdomen. 8 f x 35 cm m drain placed. Last Modified By: Farrah Mcallister RN 10/21/22 10:37:49 General Case Data - IR Entry 1 Case Information Room AH IR 17 Case Level IR Level 2 Wound Class None Specialty SN Radiology Procedure ASA Class None Diagnosis Preop Diagnosis llq seroma Postop Same As Preop Yes Postop Diagnosis llq seroma Last Modified By: Farrah Mcallister RN 10/21/22 10:06:48 Procedure Case Times- IR Entry 1 Patient In Procedure Patient In OR 10/21/22 09:58:00 Patient Out of OR 10/21/22 10:38:00 Procedure Start/Stop Procedure Start Time 10/21/22 10:25:00 Procedure Stop Time 10/21/22 10:34:00 Last Modified By: Farrah Mcallister RN 10/21/22 10:38:10 Immediate Post Procedure Note - IR Entry 1 Immediate Post Yes Procedure Note displayed for Physician to review Closure Technique Closure Technique Other than Primary Last Modified By: Farrah Mcallister RN 10/21/22 10:06:26 Immediate Post Procedure Note - IR Signed By: ESAU LOVE MD 10/21/22 10:34 Allergy Information- IR Entry 1 Allergies Reviewed? Yes Allergies Reviewed Patient With Last Modified By: Farrah Mcallister RN 10/21/22 10:04:30 Radiology Protocols/Time Out- IR Entry 1 Preprocedure Clinician Verifies Correct patient ID When Clinically Confirmation of correct using name & date Indicated side(s) and site(s), or MRN, Accurate Correct diagnostic and procedure, complete radiology tests Informed Consent, H & P available update immediately prior to procedure, if applicable OR/Procedure Room/Bedside Time 10/21/22 10:25:00 Clinician Verifies Correct patient identity including EMR & records using name and date or medical record number, Accurate procedure consent form, Correct patient position, Necessary equipment is available When Applicable Confirmation correct Team Members ESAU LOVE MD, side and site marked, Present for Time Out Farrah Mcallister RN, Relevant images and Sky Goff results are properly Suzie Remy, Sky Kelley and Tech Мария Siddiqi appropriately displayed, Alcohol based prep dry Instrument Sterility Procedure IR Sclerotherapy SN Last Modified By: Farrah Mcallister RN 10/21/22 10:25:37 Skin Prep- IR Entry 1 Procedure IR Sclerotherapy SN Skin Prep Prep Area Abdomen Side Left By Sky Goff Prep Agents Chloraprep Suzie Remy Hair Removal Method Clipped Last Modified By: Farrah Mcallister RN 10/21/22 10:06:11 Patient Positioning- IR Entry 1 Procedure IR Sclerotherapy SN Body Position OP Supine Feet Uncrossed? Yes Pressure Points Yes Checked Last Modified By: Farrah Mcallister RN 10/21/22 10:06:18 Radiology Procedure Plan - IR Entry 1 Radiology - Nursing Care Plan Outcome Statement The patient Outcome Statement The patient receives demonstrates knowledge Cont. appropriate of the expected medication(s), safely responses to the administered during the operative/invasive perioperative/invasive procedure., The period., The patient is patient's value system, free from signs and lifestyle, ethnicity, symptoms of injury and culture are caused by extraneous considered, respected, objects (equipment, and incorporated in the instrumentation, perioperative plan of sponges, or sharps). care., The patient is free from signs and symptoms of infection. Radiology - Action Plan Outcomes Met? Yes Arborer Farrah Mcallister RN Completing Procedure Plan Last Modified By: Farrah Mcallister RN 10/21/22 10:06:38 Transfer Post Procedure- IR Entry 1 RAD - Transport to Recovery Via Ambulatory Post-op Destination Receiving Transported By Sky Kelley Post Procedure Time Out Double Verification Yes Date/Time Verified 10/21/22 10:37:00 of ID band on patient Completed Verfied ID Band on Farrah Mcallister RN by Last Modified By: Farrah Mcallister RN 10/21/22 10:38:07 Case Comments Finalized By: Farrah Mcallister RN Document Signatures Signed By: Farrah Mcallister RN 10/21/22 10:38 Farrah Mcallister RN 10/21/22 10:38 Farrah Mcallister RN 10/21/22 10:43 [id number] History and physical note IR PREPROCEDURE H&P UPDATE IF A HISTORY AND PHYSICAL EXAMINATION HAS BEEN COMPLETED PRIOR TO ADMISSION TO THE HOSPITAL, AN UPDATED EXAMINATION MUST BE COMPLETED AND DOCUMENTED WITHIN 24 HOURS AFTER ADMISSION OR REGISTRATION BUT BEFORE A SURGICAL PROCEDURE. I have examined the patient, reviewed the H&P, and there are no changes unless noted below: _ The most recent H&P/Office Note was performed on 10/10/2022 and can be found in the [facility] Records ([facility]). Roshni Flores PA-C Interventional Radiology Pager [phone] IR Dept [id number] Available on [employer] Digitally Signed by ROSHNI FLORES PA-C on 10/21/2022 09:38 AM Digitally Signed by ESAU LOVE MD on 10/21/2022 10:20 AM [id number]* Juliocesar Mo Field Naturalist: SIGN, AUTHOR, PERFORM Event Display: IR Procedure Record Authored Date: [id number] IR Procedure Record Summary Primary Physician: RAMIN SAMPSON MD Finalized Date/Time: 09/12/22 14:34:18 Pt. Name: GAPATRICK/Sex: 1980 Male Med Rec #: [id number] Physician: Financial #: [id number] Pt. Type: O Room/Bed: / Admit/Disch: 09/12/22 12:58:00 - Institution: Allergies identified in patient's electronic medical record at time of printing on 09/12/22 Entry 1 Entry 2 Entry 3 Substance Keflex Keppra Tape, Paper Reaction Type Allergy Allergy Side Effect Last Modified By: Izabel Small RN, RN Anne E KINDBOM, RN JANE 10/31/16 23:03:04 08/10/13 02:23:55 08/23/13 02:36:21 Entry 4 Entry 5 Substance morphine naproxen Reaction Type Allergy Allergy Last Modified By: IBETH Skelton RN James M 08/10/13 02:22:39 03/23/18 22:20:56 Case Attendance- IR Entry 1 Entry 2 Entry 3 Case Attendee RAMIN SAMPSON MD, Alexis Tech Fierstos, Megan R Field Naturalist Role Performed Primary Surgeon Scrub Technologist Circulating Technologist Details Time In 09/12/22 14:14:00 09/12/22 14:10:00 09/12/22 14:10:00 Time Out 09/12/22 14:30:00 09/12/22 14:30:00 09/12/22 14:30:00 Procedure/Preference IR Drainage Cath IR Drainage Cath IR Drainage Cath Card Injection for Eval SN Injection for Eval SN Injection for Eval SN Last Modified By: Juliocesar Mo Rad Juliocesar Mo Rad Alek Mon R Field Naturalist 09/12/22 14:30:28 Tech 09/12/22 14:30:28 Tech 09/12/22 14:30:28 Entry 4 Case Attendee Brandie Mendez Field Naturalist Role Performed Custom Van Converter 1 Details Time In 09/12/22 14:10:00 Time Out 09/12/22 14:30:00 Procedure/Preference IR Drainage Cath Card Injection for Eval SN Last Modified By: Juliocesar Mo R Field Naturalist 09/12/22 14:30:28 Radiology Procedures- IR Entry 1 Procedure/Preference IR Drainage Cath Actual Procedure ir drain cath inj for Card Injection for Eval SN eval sn Primary Procedure Yes Primary Surgeon RAMIN SAMPSON MD Anesthesia/Sedation None Type Additional Procedure Times Start 09/12/22 14:14:00 Stop 09/12/22 14:25:00 Specialty Service SN Radiology Procedure EBL 0 mL Last Modified By: Juliocesar Mo R Field Naturalist 09/12/22 14:30:33 Radiology Procedure Details - IR Entry 1 Radiology Sedation Case Times Sedation Total Time 0 Radiology - Fluid/Drainage Radiology Contrast Contrast Used? Yes Dose 10 mL Medication OMNIPAQUE 300 50ML 10/PK Y-530 [facility] 5379-8509-74 Radiology Flouroscopy Fluoroscopy Used? Yes Fluoro Dose (mGy) 66.53 Fluoro Time 0.4minutes Radiology Local Local Used? Yes Local Type: lidocaine Local Dose 4ml Radiology Procedure Site Site/Location LLQ Site Condition No complications Dressing Type Bioclusive 4 X 5, Gauze Technologist Notes injected 10cc of 95% sponge 4 X 4 ethanol to be drained in RR and pull the drain. Last Modified By: Juliocesar Mo Field Naturalist 09/12/22 14:34:10 General Case Data - IR Entry 1 Case Information Room AH IR 18 Case Level IR Level 2 Wound Class None Specialty SN Radiology Procedure ASA Class None Diagnosis Preop Diagnosis LLQ Seroma Postop Same As Preop Yes Postop Diagnosis LLQ Seroma Last Modified By: Juliocesar Mo R Field Naturalist 09/12/22 14:17:00 Procedure Case Times- IR Entry 1 Patient In Procedure Patient In OR 09/12/22 14:10:00 Patient Out of OR 09/12/22 14:30:00 Procedure Start/Stop Procedure Start Time 09/12/22 14:14:00 Procedure Stop Time 09/12/22 14:25:00 Last Modified By: Juliocesar Mo R Field Naturalist 09/12/22 14:30:24 Immediate Post Procedure Note - IR Entry 1 Immediate Post Yes Findings Successful drain cath Procedure Note sclerosis w/ etoh 9 ml displayed for Physician to review Closure Technique Closure Technique Other than Primary Last Modified By: Juliocesar Mo R Field Naturalist 09/12/22 14:30:14 Immediate Post Procedure Note - IR Signed By: RAMIN SAMPSON MD 09/12/22 14:27 Allergy Information- IR Entry 1 Allergies Reviewed? Yes Allergies Reviewed Patient With Last Modified By: Juliocesar Mo R Field Naturalist 09/12/22 14:12:52 Radiology Protocols/Time Out- IR Entry 1 Preprocedure Clinician Verifies H & P update When Clinically Confirmation of correct immediately prior to Indicated side(s) and site(s), procedure, if applicable Correct diagnostic and radiology tests available, Required blood products, implants, devices and/or special equipment available OR/Procedure Room/Bedside Time 09/12/22 14:14:00 Clinician Verifies Correct patient identity including EMR & records using name and date or medical record number, Accurate procedure consent form, Correct patient position, Necessary equipment is available, Anticipated non-routine events with surgical team (case duration, estimated blood loss, patient specific concerns)., [facility] patient factors for recovery and management identified with surgical team. When Applicable Confirmation correct Team Members RAMIN SAMPSON MD, side and site marked, Present for Time Out Vadim Berrios, Relevant images and Juliocesar Mo Rad results are properly Tech, Vanessa, labeled and Brandie Siddiqi Sky Sellers appropriately displayed, Alcohol based prep dry Instrument Sterility Team Members Vadim Berrios Verifying Sterility Procedure IR Drainage Cath Injection for Eval SN Last Modified By: Juliocesar Mo Field Naturalist 09/12/22 14:15:05 Skin Prep- IR Entry 1 Procedure IR Drainage Cath Injection for Eval SN Skin Prep Prep Area Abdomen Side Left By Vadim Berrios Prep Agents Chloraprep Hair Removal Method N/A Last Modified By: Juliocesar Mo Field Naturalist 09/12/22 14:15:32 Patient Positioning- IR Entry 1 Procedure IR Drainage Cath Body Position OP Supine Injection for Eval SN Feet Uncrossed? Yes Pressure Points n/a Checked Last Modified By: Juliocesar Mo Field Naturalist 09/12/22 14:15:44 Radiology Procedure Plan - IR Entry 1 Radiology - Nursing Care Plan Radiology - Action Plan Action Plan - Patient demonstrates Outcome Statement knowledge of the expected reseponses to the invasive procedure, Patient's value system, lifestyle, ethnicity, and culture are considered, respected, and incorporated in the perioperative plan of care., Patient is free from signs and symptoms of infection., Patient is free from signs and symptoms of injury related to positioning., Patient is free from signs and symptoms of chemical injury., Patient receives appropriate medication(s), safely administered during the perioperative period., Patient is free from signs and symptoms of injury caused by extraneous objects (equipment, instrumentation, sponges, or sharps)., Patient is free from signs and symptoms of electrical injury. Outcomes Met? Yes Arborer Juliocesar Mo Completing Tech Procedure Plan Last Modified By: Juliocesar Mo Field Naturalist 09/12/22 14:16:26 Case Comments <None> Finalized By: Juliocesar Mo Document Signatures Signed By: Juliocesar Mo Field Naturalist 09/12/22 14:34 [facility] 03-30-2023 Hospital Discharge instructions Patient Education 09/12/2022 14:26:09 Radiology- Procedure/Biopsy 09/29/2019 (CUSTOM) [place] Radiology Procedure/Biopsy Discharge Instructions Interventional Radiology [facility] [address] [address] Today, you had a . This procedure/biopsy was done to help your doctor diagnose and treat the signs and symptoms you have been experiencing. These instructions should be followed after your procedure to reduce the chance of experiencing complications. Please follow the instructions below to reduce the chance of experiencing complications. Diet: Resume your normal diet as tolerated. Drink extra fluids. Activity: Rest for the remainder of the day. You may resume your normal activity tomorrow. You may bathe/shower after 24 hours. Do not soak or submerge site (including swimming or hot tubs) until a scab forms. No heavy lifting, pushing, or straining. Dressing: Check the site for bleeding. Apply pressure to the site if bleeding excessively and call your physician. Change the band aid as needed; it can be removed after 24 hours. Keep the site dry at all times until a scab forms over the site. Pain Control: The puncture site may be sore for 1 to 2 days following the procedure. [id number] pain medication should be used for pain or discomfort. Please check with the physician who ordered this procedure for you for their specific recommendations. If your pain is not relieved or becomes more severe, notify the physician who sent you for this procedure. If you were sedated for this procedure: Avoid alcoholic beverages for 24 hours after your procedure. Do not drive or operate heavy machinery for 24 hours after your procedure. Do not make any legal decisions for 24 hours after your procedure. Medication: Please resume on . When to seek medical help: Lightheadedness, dizziness, or fainting. Severe pain or swelling. Severe nausea or vomiting. Infection: fever greater than 101 degrees, chills, redness, warmth, swelling, bleeding, or pus frompuncture site. If you experience any of these issues during the first 24 hours, please follow the instruction below: 8:00 am- 5:00 pm call [phone] After 5:00 pm call [phone] After 24 hours, contact the physician who ordered this procedure for you. Obtaining test results: Please make an appointment with your doctor to obtain your test results. They are usually availablewithin 4 to 7 business days. Do not assume everything is normal if you have not heard from your doctor or medical facility. It is important for you to follow up on all of your test results. Special Instructions: Follow Up Care 09/11/2022 08:37:28 With:Follow up with primary care provider Address:Unknown When: Unknown [facility] 03-30-2023 Interventional radiology Progress note IR Brief Post Procedure Note Preprocedure Dx: Seroma LLQ Postprocedure Dx: same Procedure: Patient had sclerosing solution injected into catheter that had been placed in LLQ seroma on 09/05/2022. Anesthesia: Local EBL: Minimal Complications: None Findings After 20 minutes, 20 ml of smooth fluid was aspirated from the catheter. The catheter was then cut and pulled out. A sterile dressing was applied over the skin insertion site. The patient tolerated the procedure well. Plan 1. Patient discharged home in stable and satisfactory condition. Digitally Signed by MARSHALL CROCKER PA-C on 09/12/2022 04:08 PM [id number] IR Procedure Record Summary Primary Physician: RAMIN SAMPSON MD Finalized Date/Time: 09/12/22 14:34:18 Pt. Name: PATRICK KOROMA /Sex: 1980 Male Med Rec #: [id number] Physician: Financial #: [id number] Pt. Type: O Room/Bed: / Admit/Disch: 09/12/22 12:58:00 - Institution: Allergies identified in patient's electronic medical record at time of printing on 09/12/22 Entry 1 Entry 2 Entry 3 Substance Keflex Keppra Tape, Paper Reaction Type Allergy Allergy Side Effect Last Modified By: Izabel Small RN, RN Anne E KINDBOM, RN JANE 10/31/16 23:03:04 08/10/13 02:23:55 08/23/13 02:36:21 Entry 4 Entry 5 Substance morphine naproxen Reaction Type Allergy Allergy Last Modified By: IBETH Skelton RN James M 08/10/13 02:22:39 09/05/17 22:20:56 Case Attendance- IR Entry 1 Entry 2 Entry 3 Case Attendee RAMIN SAMPSON MD, Alexis Tech Fierstos, Megan R Rad Tech Role Performed Primary Surgeon Scrub Technologist Circulating Technologist Details Time In 09/12/22 14:14:00 09/12/22 14:10:00 09/12/22 14:10:00 Time Out 09/12/22 14:30:00 09/12/22 14:30:00 09/12/22 14:30:00 Procedure/Preference IR Drainage Cath IR Drainage Cath IR Drainage Cath Card Injection for Eval SN Injection for Eval SN Injection for Eval SN Last Modified By: Juliocesar Mo Megan R Rad Fierstos, Megan R Rad Tech 09/12/22 14:30:28 Tech 09/12/22 14:30:28 Tech 09/12/22 14:30:28 Entry 4 Case Attendee Brandie Mendez Field Naturalist Role Performed Custom Van Converter 1 Details Time In 09/12/22 14:10:00 Time Out 09/12/22 14:30:00 Procedure/Preference IR Drainage Cath Card Injection for Eval SN Last Modified By: Juliocesar Mo Field Naturalist 09/12/22 14:30:28 Radiology Procedures- IR Entry 1 Procedure/Preference IR Drainage Cath Actual Procedure ir drain cath inj for Card Injection for Eval SN eval sn Primary Procedure Yes Primary Surgeon RAMIN SAMPSON MD Anesthesia/Sedation None Type Additional Procedure Times Start 09/12/22 14:14:00 Stop 09/12/22 14:25:00 Specialty Service SN Radiology Procedure EBL 0 mL Last Modified By: Juliocesar Mo Field Naturalist 09/12/22 14:30:33 Radiology Procedure Details - IR Entry 1 Radiology Sedation Case Times Sedation Total Time 0 Radiology - Fluid/Drainage Radiology Contrast Contrast Used? Yes Dose 10 mL Medication OMNIPAQUE 300 50ML 10/PK Y-530 [facility] 6664-6119-59 Radiology Flouroscopy Fluoroscopy Used? Yes Fluoro Dose (mGy) 66.53 Fluoro Time 0.4minutes Radiology Local Local Used? Yes Local Type: lidocaine Local Dose 4ml Radiology Procedure Site Site/Location LLQ Site Condition No complications Dressing Type Bioclusive 4 X 5, Gauze Technologist Notes injected 10cc of 95% sponge 4 X 4 ethanol to be drained in RR and pull the drain. Last Modified By: Juliocesar Mo Field Naturalist 09/12/22 14:34:10 General Case Data - IR Entry 1 Case Information Room IR 18 Case Level IR Level 2 Wound Class None Specialty SN Radiology Procedure ASA Class None Diagnosis Preop Diagnosis LLQ Seroma Postop Same As Preop Yes Postop Diagnosis LLQ Seroma Last Modified By: Juliocesar Mo R Field Naturalist 09/12/22 14:17:00 Procedure Case Times- IR Entry 1 Patient In Procedure Patient In OR 09/12/22 14:10:00 Patient Out of OR 09/12/22 14:30:00 Procedure Start/Stop Procedure Start Time 09/12/22 14:14:00 Procedure Stop Time 09/12/22 14:25:00 Last Modified By: Juliocesar Mo R Field Naturalist 09/12/22 14:30:24 Immediate Post Procedure Note - IR Entry 1 Immediate Post Yes Findings Successful drain cath Procedure Note sclerosis w/ etoh 9 ml displayed for Physician to review Closure Technique Closure Technique Other than Primary Last Modified By: Juliocesar Mo R Field Naturalist 09/12/22 14:30:14 Immediate Post Procedure Note - IR Signed By: RAMIN SAMPSON MD 09/12/22 14:27 Allergy Information- IR Entry 1 Allergies Reviewed? Yes Allergies Reviewed Patient With Last Modified By: Juliocesar Mo Field Naturalist 09/12/22 14:12:52 Radiology Protocols/Time Out- IR Entry 1 Preprocedure Clinician Verifies H & P update When Clinically Confirmation of correct immediately prior to Indicated side(s) and site(s), procedure, if applicable Correct diagnostic and radiology tests available, Required blood products, implants, devices and/or special equipment available OR/Procedure Room/Bedside Time 09/12/22 14:14:00 Clinician Verifies Correct patient identity including EMR & records using name and date or medical record number, Accurate procedure consent form, Correct patient position, Necessary equipment is available, Anticipated non-routine events with surgical team (case duration, estimated blood loss, patient specific concerns)., [facility] patient factors for recovery and management identified with surgical team. When Applicable Confirmation correct Team Members RAMIN SAMPSON MD, side and site marked, Present for Time Out Vadim Berrios, Relevant images and Juliocesar Mo R Rad results are properly Tech, Vanessa, labeled and Terra L Field Naturalist appropriately displayed, Alcohol based prep dry Instrument Sterility Team Members Vadim Berrios Verifying Sterility Procedure IR Drainage Cath Injection for Eval SN Last Modified By: Juliocesar Mo Field Naturalist 09/12/22 14:15:05 Skin Prep- IR Entry 1 Procedure IR Drainage Cath Injection for Eval SN Skin Prep Prep Area Abdomen Side Left By Vadim Berrios Prep Agents Chloraprep Hair Removal Method N/A Last Modified By: Juliocesar Mo R Field Naturalist 09/12/22 14:15:32 Patient Positioning- IR Entry 1 Procedure IR Drainage Cath Body Position OP Supine Injection for Eval SN Feet Uncrossed? Yes Pressure Points n/a Checked Last Modified By: Juliocesar Mo CardiaLen 09/12/22 14:15:44 Radiology Procedure Plan - IR Entry 1 Radiology - Nursing Care Plan Radiology - Action Plan Action Plan - Patient demonstrates Outcome Statement knowledge of the expected reseponses to the invasive procedure, Patient's value system, lifestyle, ethnicity, and culture are considered, respected, and incorporated in the perioperative plan of care., Patient is free from signs and symptoms of infection., Patient is free from signs and symptoms of injury related to positioning., Patient is free from signs and symptoms of chemical injury., Patient receives appropriate medication(s), safely administered during the perioperative period., Patient is free from signs and symptoms of injury caused by extraneous objects (equipment, instrumentation, sponges, or sharps)., Patient is free from signs and symptoms of electrical injury. Outcomes Met? Yes Arborer Juliocesar Mo TRADE TO REBATE Procedure Plan Last Modified By: Juliocesar Mo CardiaLen 09/12/22 14:16:26 Case Comments Finalized By: Juliocesar Mo CardiaLen Document Signatures Signed By: Juliocesar Mo CardiaLen 09/12/22 14:34 [id number] Summary of episode note Discharge Instructions Thank you for allowing [facility] to assist you with your healthcare needs. The following is importantdischarge information regarding your hospital visit. Your Care Team PHYSICIAN, NONE What to do next Follow Up Appointments Follow Up with Follow up with primary care provider When The Following Activity and Diet Have Been Ordered for You No qualifying data available. No qualifying data available. The Following Equipment Has Been Ordered for You No qualifying data available. The Following Treatments Have Been Ordered for You Discharge Labs No qualifying data available. Discharge Radiology No qualifying data available. Other Therapies No qualifying data available. Post Acute Orders No qualifying data available. Someone Will Contact You Regarding These Home Health Referrals No home referrals have been ordered for you. No one will call you. Allergies Keflex Keppra (Rash) Tape, Paper (Rash) morphine (Rash) naproxen Medications Please ask your primary doctor or pharmacist before taking any other medication not listed, including over the counter drugs, herbal medications, vitamins and or supplements as they may interact withyour home medications. What How Much When Why Instructions Last Dose Unchanged acetaminophen- hydrocodone (acetaminophen-hydrocodone 325 mg-5 mg oral tablet) 1 tab(s) by mouth Every 6 hours as needed for for pain Unchanged carBAMazepine (TEGretol 200 mg oral tablet) 3 tab(s) by mouth Two (2) times a day Seizure Post-operative state s/p umbilical hernia repair, possible seizure following surgery Unchanged ondansetron (ondansetron 4 mg oral tablet) TAKE 1 TAB(S) ORAL EVERY 8 HOURS NEEDED FOR NAUSEA AND VOMITING Please take this list to your next doctor s visit. Bring all medications you take, including over the counter medications, herbals and other supplements with you to your doctor s visit. Patients and families are reminded to discard old lists and to update any records with all medication providers or retail pharmacies. Education Materials [facility] Radiology Procedure/Biopsy Discharge Instructions Interventional Radiology [facility] [address] [place] [address] Today, you had a . This procedure/biopsy was done to help your doctor diagnose and treat the signs and symptoms you have been experiencing. These instructions should be followed after your procedure to reduce the chance of experiencing complications. Please follow the instructions below to reduce the chance of experiencing complications. Diet: Resume your normal diet as tolerated. Drink extra fluids. Activity: Rest for the remainder of the day. You may resume your normal activity tomorrow. You may bathe/shower after 24 hours. Do not soak or submerge site (including swimming or hot tubs) until a scab forms. No heavy lifting, pushing, or straining. Dressing: Check the site for bleeding. Apply pressure to the site if bleeding excessively and call your physician. Change the band aid as needed; it can be removed after 24 hours. Keep the site dry at all times until a scab forms over the site. Pain Control: The puncture site may be sore for 1 to 2 days following the procedure. Rgvn-ale-ljuejvf pain medication should be used for pain or discomfort. Please check with the physician who ordered this procedure for you for their specific recommendations. If your pain is not relieved or becomes more severe, notify the physician who sent you for this procedure. If you were sedated for this procedure: Avoid alcoholic beverages for 24 hours after your procedure. Do not drive or operate heavy machinery for 24 hours after your procedure. Do not make any legal decisions for 24 hours after your procedure. Medication: Please resume on . When to seek medical help: Lightheadedness, dizziness, or fainting. Severe pain or swelling. Severe nausea or vomiting. Infection: fever greater than 101 degrees, chills, redness, warmth, swelling, bleeding, or pus frompuncture site. If you experience any of these issues during the first 24 hours, please follow the instruction below: 8:00 am- 5:00 pm call [phone] After 5:00 pm call [phone] After 24 hours, contact the physician who ordered this procedure for you. Obtaining test results: Please make an appointment with your doctor to obtain your test results. They are usually availablewithin 4 to 7 business days. Do not assume everything is normal if you have not heard from your doctor or medical facility. It is important for you to follow up on all of your test results. Special Instructions: Additional Information VACCINATE! IT SAVES LIVES! Members of the community who have not yet received the COVID-19 vaccine and would like to receive it can visit one of [facility] vaccine clinics. There are many vaccine clinic locations within the [facility]. For locations and available times, please visit [email or web address].[place].gov/. It is important to note that some COVID mobile vaccine clinics are held outdoors and may be canceled in rainy or stormy conditions. To learn more about pediatric vaccinations (ages 5-11), we invite you to visit the [facility] webpage. https://www.akEuroMillions.co Ltd.s.org/pages/0831-Jlaqv-Bgerskkbmpb-Elemxklkrf-Fhfux-Tqp stions.htmlTo learn more about the COVID-19 vaccine, we invite you to visit the CDC website for a list of frequently asked questions. https://www.cdc.gov/coronavirus/2019-ncov/vaccines/faq.html [facility] Patient Portal Access Instructions: Stay connected with your healthcare team and access your personal medical information anytime with the [facility] Patient Portal.If you would like a full copy of your medical records, please contact the [facility] Medical Records Department, Friday through Friday between 8a.m. and 4:30p.m. Please follow the directions below to access the portal: 1.Access the email account you provided upon registration to the hospital.2.Look for an invitation email from [facility].3.Open the email and access the invitation link: Accept Invitation to [facility]4.Fill in the required vegas to create your account. Sign into [email or web address] with your username and password that you created in the above steps to stay up to date. You can then view a summary of results, a summary of your visits, and the ability to download your summaries to your computer or send the information securely to a physician. Remember that your healthcare information is confidential, so carefully consider who you will allow to register on the [facility] Patient Portal for access to your information. You can also access the [facility] Patient Portal on the [employer]. Simply click on Health Records under HealthData and then click on the [employer] logo. HOW TO SAFELY DISPOSE OF PRESCRIPTION MEDICATIONS Please use one of the following methods to safely dispose of your unused medications. 1.Use a drug disposal kit: the drug disposal pouch allows you to safely discard your old and unuseddrugs. Ask your nurse to give you one when you are discharged.2.Visit a local take-back location: Many local pharmacies and police departments have programs that collect old and unwanted prescriptiondrugs. Call your local pharmacy or go to http://Jiberish.Zenefits/2G0Xq4g to find one close to you.3.Make use of household items: Use cat litter or old coffee grounds to dispose medications if other options arenot available. Mix your drugs with these household products, seal them in an airtight container andthrow it into the garbage. Call [facility]: [phone] to be sure your drugs can be disposed of in this way. Some medicines may require a different approach.4.Never flush your medications down the toilet. IF YOU HAVE BEEN PRESCRIBED AN OPIOID FOR PAIN If you have been prescribed an opioid (such as hydrocodone, oxycodone or morphine), it is critical to understand the possible side effects and risks of opioid pain medications. Even when taken as directed, opioids can have several side effects including: Tolerance, meaning you might need to take more of a medication for the same pain relief. Nausea, vomiting and/or constipation. Sleepiness, dizziness, dry mouth, confusion, depression or itching. Physical dependence, meaning you have withdrawal symptoms when a medication is stopped, can develop within a few days. KNOW YOUR RESPONSIBILITIES It is important to know exactly how much and how often to take the opioid pain medications you are prescribed. Never take opioids in higher amounts or more often than prescribed. Do not combine opioids with alcohol or other drugs that cause drowsiness, such as benzodiazepines, also known as benzos, including diazepam and alprazolam, muscle relaxants or sleep aids. Never sell or share prescription opioids. This is illegal. Store opioids in a secure place and out of reach of others (including children, family, friends and visitors). The last page of this document has been signed and retained as a CHART COPY. Signatures Patient Education Materials Radiology- Procedure/Biopsy 09/29/2019 (CUSTOM) Medication Leaflets My discharge plan and instructions have been reviewed and explained to me and I,SANTAZOEYMARITZA PATRICK Guerrero understand my current condition and have read and understand these discharge instructions. I have received a written copy of the plan/instructions. If I have questions, I am aware that I should contact my doctor. Patient/Mica Miner Signature: Date/Time: Relationship to Patient: Witness Name/Signature: Date/Time: [id number] Evaluation + Plan noteExtracted from: Title:IR pre procedure H&P Author:SHIRLEY CROCKER PA-C Date:09/12/22 IR PREPROCEDURE H&P UPDATE IF A HISTORY AND PHYSICAL EXAMINATION HAS BEEN COMPLETED PRIOR TO ADMISSION TO THE HOSPITAL, AN UPDATED EXAMINATION MUST BE COMPLETED AND DOCUMENTED WITHIN 24 HOURS AFTER ADMISSION OR REGISTRATION BUT BEFORE A SURGICAL PROCEDURE. I have examined the patient, reviewed the H&P, and there are no changes unless noted below: Approximately 25 ml serosanguineous fluid in bag from the last 2 days. Patient states that he no longer feels pressure in LLQ. He has some discomfort at the insertion site. The most recent H&P/Office Note has been performed on 08/28/2022 and can be found on paper, which has been scanned into the [facility] PACS/RIS system. _ Future Scheduled Tests Laboratory* Basic Metabolic Panel 11/23/21 * Carbamazepine Level 11/23/21 * Complete Metabolic Panel 11/23/21 [facility] 03-30-2023 History and physical note IR PREPROCEDURE H&P UPDATE IF A HISTORY AND PHYSICAL EXAMINATION HAS BEEN COMPLETED PRIOR TO ADMISSION TO THE HOSPITAL, AN UPDATED EXAMINATION MUST BE COMPLETED AND DOCUMENTED WITHIN 24 HOURS AFTER ADMISSION OR REGISTRATION BUT BEFORE A SURGICAL PROCEDURE. I have examined the patient, reviewed the H&P, and there are no changes unless noted below: Approximately 25 ml serosanguineous fluid in bag from the last 2 days. Patient states that he no longer feels pressure in LLQ. He has some discomfort at the insertion site. The most recent H&P/Office Note has been performed on 08/28/2022 and can be found on paper, which has been scanned into the [facility] PACS/RIS system. _ Digitally Signed by MARSHALL CROCKER PA-C on 09/12/2022 01:30 PM [id number] Evaluation + Plan noteExtracted from: Title:IR pre-procedure H&P - LLQ drainage catheter insertion Author:HARRIET LEONARD PA-C Date:09/05/22 IR PREPROCEDURE H&P UPDATE IF A HISTORY AND PHYSICAL EXAMINATION HAS BEEN COMPLETED PRIOR TO ADMISSION TO THE HOSPITAL, AN UPDATED EXAMINATION MUST BE COMPLETED AND DOCUMENTED WITHIN 24 HOURS AFTER ADMISSION OR REGISTRATION BUT BEFORE A SURGICAL PROCEDURE. I have examined the patient, reviewed the H&P, and there are no changes unless noted below: _ The most recent H&P/Office Note was performed on 08/28/2022 and can be found in the [facility] Electronic Medical Records ([facility]). Harriet Leonard PA-C Interventional Radiology Pager: [phone] IR dept: x [phone] Available on [facility] Future Appointments Appointment Date:09/12/2022 02:00:00 PM Scheduled Provider: Location:IR Appointment Type:IR Drainage Cath Injection for Eval Future Scheduled Tests Laboratory* Basic Metabolic Panel 11/23/21 * Carbamazepine Level 11/23/21 * Complete Metabolic Panel 11/23/21 [facility] 03-23-2023 Hospital Discharge instructions Patient Education 09/05/2022 11:49:33 Radiology- Procedure/Biopsy 09/29/2019 (CUSTOM) [facility] Radiology Procedure/Biopsy Discharge Instructions Interventional Radiology [facility] [address] [place] [address] Today, you had a Drain insertion . This procedure/biopsy was done to help your doctor diagnose and treat the signs and symptoms you have been e xperiencing. These instructions should be followed after your procedure to reduce the chance of experiencing complications. Please follow the instructions below to reduce the chance of experiencing complications. Diet: Resume your normal diet as tolerated. Drink extra fluids. Activity: Rest for the remainder of the day. You may resume your normal activity tomorrow. You may bathe/shower after 24 hours. Do not soak or submerge site (including swimming or hot tubs) until a scab forms. No heavy lifting, pushing, or straining. Dressing: Check the site for bleeding. Apply pressure to the site if bleeding excessively and call your physician. Change the band aid as needed; it can be removed after 24 hours. Keep the site dry at all times until a scab forms over the site. Pain Control: The puncture site may be sore for 1 to 2 days following the procedure. Flkd-hyw-ocbfmuc pain medication should be used for pain or discomfort. Please check with the physician who ordered this procedure for you for their specific recommendations. If your pain is not relieved or becomes more severe, notify the physician who sent you for this procedure. If you were sedated for this procedure: Avoid alcoholic beverages for 24 hours after your procedure. Do not drive or operate heavy machinery for 24 hours after your procedure. Do not make any legal decisions for 24 hours after your procedure. Medication: Please resume on . When to seek medical help: Lightheadedness, dizziness, or fainting. Severe pain or swelling. Severe nausea or vomiting. Infection: fever greater than 101 degrees, chills, redness, warmth, swelling, bleeding, or pus frompuncture site. If you experience any of these issues during the first 24 hours, please follow the instruction below: 8:00 am- 5:00 pm call [phone] After 5:00 pm call [phone] After 24 hours, contact the physician who ordered this procedure for you. Obtaining test results: Please make an appointment with your doctor to obtain your test results. They are usually availablewithin 4 to 7 business days. Do not assume everything is normal if you have not heard from your doctor or medical facility. It is important for you to follow up on all of your test results. Special Instructions: Follow Up Care 09/04/2022 13:24:02 With:Follow up with primary care provider Address:Unknown When: Unknown [facility] 03-23-2023 Note* IBETH Regalado Riley: SIGN, AUTHOR, PERFORM Event Display: IR Procedure Record Authored Date: IR Procedure Record Summary Primary Physician: ROSHNI FLORES PA-C Finalized Date/Time: 09/05/22 11:48:45 Pt. Name: PATRICK KOROMA Cesar SauerB./Sex: 1980 Male Med Rec #: [id number] Physician: Financial #: [id number] Pt. Type: O Room/Bed: / Admit/Disch: 09/05/22 09:48:00 - Institution: Allergies identified in patient's electronic medical record at time of printing on 09/05/22 Entry 1 Entry 2 Entry 3 Substance Keflex Keppra Tape, Paper Reaction Type Allergy Allergy Side Effect Last Modified By: Izabel Small RN, IBETH Metzger 10/31/16 23:03:04 08/10/13 02:23:55 08/23/13 02:36:21 Entry 4 Entry 5 Substance morphine naproxen Reaction Type Allergy Allergy Last Modified By: IBETH Skelton RN James M 08/10/13 02:22:39 09/05/17 22:20:56 Case Attendance- IR Entry 1 Entry 2 Entry 3 Case Attendee ROSHNI FLORES Jacque M. Allen, CardiaLen Tatyana ZARATE Role Performed Primary Surgeon Scrub Technologist Circulating Technologist Details Time In 09/05/22 11:32:00 09/05/22 11:21:00 09/05/22 11:21:00 Time Out 09/05/22 11:53:00 09/05/22 11:53:00 09/05/22 11:53:00 Procedure/Preference IR Drainage Peritoneal IR Drainage Peritoneal IR Drainage Peritoneal Card Abscess Guide SN Abscess Guide SN Abscess Guide SN Last Modified By: IBETH Regalado RN Corey Snider, RN Corey 09/05/22 11:45:18 09/05/22 11:45:18 09/05/22 11:45:18 Entry 4 Case Attendee IBETH Regalado Role Performed Custom Van Converter 1 Details Time In 09/05/22 11:21:00 Time Out 09/05/22 11:53:00 Procedure/Preference IR Drainage Peritoneal Card Abscess Guide SN Last Modified By: IBETH Regalado 09/05/22 11:45:18 Radiology Procedures- IR Entry 1 Procedure/Preference IR Drainage Peritoneal Actual Procedure ir drainage peritoneal Card Abscess Guide SN abscess guide sn Primary Procedure Yes Primary Surgeon ROSHNI FLORES PA-C Anesthesia/Sedation Local Type Additional Procedure Times Start 09/05/22 11:32:00 Stop 09/05/22 11:45:00 Specialty Service SN Radiology Procedure EBL 1 mL Last Modified By: IBETH Regalado 09/05/22 11:45:55 Radiology Procedure Details - IR Entry 1 Radiology Sedation Case Times Sedation Total Time 0min Radiology - Fluid/Drainage Fluid Amount mL: 140 Fluid Description brown Radiology Contrast Contrast Used? No Radiology Flouroscopy Fluoroscopy Used? Yes Fluoro Dose (mGy) 50.72 Fluoro Time 0min Radiology Local Local Used? Yes Local Type: lidocaine 2% Local Dose 10ml Radiology Procedure Site Site/Location abdomen Site Condition No complications Suture 2.0 Ethilon Suture Dressing Type Gauze sponge 4 X 4, Transparent Technologist Notes LLQ 7f drain Last Modified By: IBETH Regalado 09/05/22 11:48:23 General Case Data - IR Entry 1 Case Information Room IR 18 Case Level IR Level 2 Wound Class None Specialty SN Radiology Procedure ASA Class None Diagnosis Preop Diagnosis LLQ seroma Postop Same As Preop Yes Postop Diagnosis LLQ seroma Last Modified By: IBETH Regalado 09/05/22 11:27:01 Procedure Case Times- IR Entry 1 Patient In Procedure Patient In OR 09/05/22 11:21:00 Patient Out of OR 09/05/22 11:53:00 Procedure Start/Stop Procedure Start Time 09/05/22 11:32:00 Procedure Stop Time 09/05/22 11:45:00 Last Modified By: IBETH Regalado 09/05/22 11:45:17 Immediate Post Procedure Note - IR Entry 1 Immediate Post Yes Findings LLQ seroma 7Fr drain Procedure Note placement displayed for Physician to review Closure Technique Closure Technique Other than Primary Last Modified By: IBETH Regalado 09/05/22 11:45:49 Immediate Post Procedure Note - IR Signed By: ROSHNI FLORES PA-C 09/05/22 11:45 Allergy Information- IR Entry 1 Allergies Reviewed? Yes Allergies Reviewed Medical Record With Last Modified By: IBETH Regalado 09/05/22 11:23:33 Radiology Protocols/Time Out- IR Entry 1 Preprocedure Clinician Verifies Correct patient ID When Clinically Confirmation of correct using name & date Indicated side(s) and site(s), or MRN, Accurate Correct diagnostic and procedure, complete radiology tests Informed Consent, H & P available, Required update immediately blood products, prior to procedure, if implants, devices applicable and/or special equipment available OR/Procedure Room/Bedside Time 09/05/22 11:32:00 Clinician Verifies Correct patient identity including EMR & records using name and date or medical record number, Accurate procedure consent form, Correct patient position, Necessary equipment is available, Anticipated non-routine events with surgical team (case duration, estimated blood loss, patient specific concerns)., [facility] patient factors for recovery and management identified with surgical team. When Applicable Confirmation correct Team Members ROSHNI FLORES side and site marked, Present for Time Out Jus ZARATE Jacque Relevant images and Jose Mejía Rad Tech results are properly Sabine Joe RN Corey labeled and appropriately displayed, Alcohol based prep dry, Double verification of sterility indicators complete Instrument Sterility Team Members ROSHNI FLORES Verifying Sterility Jus ZARATE Jacque M. Procedure IR Drainage Peritoneal Abscess Guide SN Last Modified By: IBETH Regalado 09/05/22 11:45:04 Skin Prep- IR Entry 1 Procedure IR Drainage Peritoneal Abscess Guide SN Skin Prep Prep Area Abdomen Side Left, Lower By Lacey Luu Prep Agents Chloraprep Hair Removal Method N/A Last Modified By: IBETH Regalado 09/05/22 11:26:01 Patient Positioning- IR Entry 1 Procedure IR Drainage Peritoneal Body Position OP Supine Abscess Guide SN Feet Uncrossed? Yes Pressure Points Yes Checked Last Modified By: IBETH Regalado 09/05/22 11:26:10 Radiology Procedure Plan - IR Entry 1 Radiology - Nursing Care Plan Outcome Statement The patient Outcome Statement The patient receives demonstrates knowledge Cont. appropriate of the expected medication(s), safely responses to the administered during the operative/invasive perioperative/invasive procedure., The period., The patient is patient's value system, free from signs and lifestyle, ethnicity, symptoms of injury and culture are caused by extraneous considered, respected, objects (equipment, and incorporated in the instrumentation, perioperative plan of sponges, or sharps). care., The patient is free from signs and symptoms of infection., The patient is free from signs and symptoms of injury related to positioning. Radiology - Action Plan Outcomes Met? Yes Arborer IBETH Regalado Completing Procedure Plan Last Modified By: IBETH Regalado 09/05/22 11:26:48 Case Comments <None> Finalized By: IBETH Regalado Document Signatures Signed By: IBETH Regalado 09/05/22 11:48 [facility] 03-23-2023 History and physical note IR PREPROCEDURE H&P UPDATE IF A HISTORY AND PHYSICAL EXAMINATION HAS BEEN COMPLETED PRIOR TO ADMISSION TO THE HOSPITAL, AN UPDATED EXAMINATION MUST BE COMPLETED AND DOCUMENTED WITHIN 24 HOURS AFTER ADMISSION OR REGISTRATION BUT BEFORE A SURGICAL PROCEDURE. I have examined the patient, reviewed the H&P, and there are no changes unless noted below: _ The most recent H&P/Office Note was performed on 08/28/2022 and can be found in the [facility] ([place]). Harriet Leonard PA-C Interventional Radiology Pager: [phone] IR dept: x [id number] Available on [employer]t Digitally Signed by HARRIET LEONARD PA-C on 09/05/2022 11:54 AM Digitally Signed by ESAU LOVE MD on 09/05/2022 03:20 PM [id number] Summary of episode note Discharge Instructions Thank you for allowing [facility] to assist you with your healthcare needs. The following is importantdischarge information regarding your hospital visit. Your Care Team PHYSICIAN, NONE What to do next Follow Up Appointments Follow Up with Follow up with primary care provider When The Following Activity and Diet Have Been Ordered for You No qualifying data available. No qualifying data available. The Following Equipment Has Been Ordered for You No qualifying data available. The Following Treatments Have Been Ordered for You Discharge Labs No qualifying data available. Discharge Radiology No qualifying data available. Other Therapies No qualifying data available. Post Acute Orders No qualifying data available. Someone Will Contact You Regarding These Home Health Referrals No home referrals have been ordered for you. No one will call you. Allergies Keflex Keppra (Rash) Tape, Paper (Rash) morphine (Rash) naproxen Medications Please ask your primary doctor or pharmacist before taking any other medication not listed, including over the counter drugs, herbal medications, vitamins and or supplements as they may interact withyour home medications. What How Much When Why Instructions Last Dose Unchanged acetaminophen- hydrocodone (acetaminophen-hydrocodone 325 mg-5 mg oral tablet) 1 tab(s) by mouth Every 6 hours as needed for for pain Unchanged carBAMazepine (TEGretol 200 mg oral tablet) 3 tab(s) by mouth Two (2) times a day Seizure Post-operative state s/p umbilical hernia repair, possible seizure following surgery Unchanged ondansetron (ondansetron 4 mg oral tablet) TAKE 1 TAB(S) ORAL EVERY 8 HOURS NEEDED FOR NAUSEA AND VOMITING Please take this list to your next doctor s visit. Bring all medications you take, including over the counter medications, herbals and other supplements with you to your doctor s visit. Patients and families are reminded to discard old lists and to update any records with all medication providers or retail pharmacies. Education Materials [place] Radiology Procedure/Biopsy Discharge Instructions Interventional Radiology [facility] [address] [address] Today, you had a Drain insertion . This procedure/biopsy was done to help your doctor diagnose and treat the signs and symptoms you have been e xperiencing. These instructions should be followed after your procedure to reduce the chance of experiencing complications. Please follow the instructions below to reduce the chance of experiencing complications. Diet: Resume your normal diet as tolerated. Drink extra fluids. Activity: Rest for the remainder of the day. You may resume your normal activity tomorrow. You may bathe/shower after 24 hours. Do not soak or submerge site (including swimming or hot tubs) until a scab forms. No heavy lifting, pushing, or straining. Dressing: Check the site for bleeding. Apply pressure to the site if bleeding excessively and call your physician. Change the band aid as needed; it can be removed after 24 hours. Keep the site dry at all times until a scab forms over the site. Pain Control: The puncture site may be sore for 1 to 2 days following the procedure. Mfib-kfl-jfxaelt pain medication should be used for pain or discomfort. Please check with the physician who ordered this procedure for you for their specific recommendations. If your pain is not relieved or becomes more severe, notify the physician who sent you for this procedure. If you were sedated for this procedure: Avoid alcoholic beverages for 24 hours after your procedure. Do not drive or operate heavy machinery for 24 hours after your procedure. Do not make any legal decisions for 24 hours after your procedure. Medication: Please resume on . When to seek medical help: Lightheadedness, dizziness, or fainting. Severe pain or swelling. Severe nausea or vomiting. Infection: fever greater than 101 degrees, chills, redness, warmth, swelling, bleeding, or pus frompuncture site. If you experience any of these issues during the first 24 hours, please follow the instruction below: 8:00 am- 5:00 pm call [phone] After 5:00 pm call [phone] After 24 hours, contact the physician who ordered this procedure for you. Obtaining test results: Please make an appointment with your doctor to obtain your test results. They are usually availablewithin 4 to 7 business days. Do not assume everything is normal if you have not heard from your doctor or medical facility. It is important for you to follow up on all of your test results. Special Instructions: Additional Information VACCINATE! IT SAVES LIVES! Members of the community who have not yet received the COVID-19 vaccine and would like to receive it can visit one of [facility] vaccine clinics. There are many vaccine clinic locations within the [facility]. For locations and available times, please visit [email or web address] It is important to note that some COVID mobile vaccine clinics are held outdoors and may be canceled in rainy or stormy conditions. To learn more about pediatric vaccinations (ages 5-11), we invite you to visit the [facility] webpage. [email or web address]/[email or web address] learn more about the COVID-19 vaccine, we invite you to visit the CDC website for a list of frequently asked questions. https://www.cdc.gov/coronavirus/2019-ncov/vaccines/faq.html [employer] [facility] Patient Portal Access Instructions: Stay connected with your healthcare team and access your personal medical information anytime with the [employer] [facility] Patient Portal.If you would like a full copy of your medical records, please contact the [facility] Medical Records Department, Friday through Friday between 8a.m. and 4:30p.m. Please follow the directions below to access the portal: 1.Access the email account you provided upon registration to the [facility].2.Look for an invitation email from [facility].3.Open the email and access the invitation link: Accept Invitation to [employer] [facility]4.Fill in the required [place] to create your account. Sign into [email or web address] with your username and password that you created in the above steps to stay up to date. You can then view a summary of results, a summary of your visits, and the ability to download your summaries to your computer or send the information securely to a physician. Remember that your healthcare information is confidential, so carefully consider who you will allow to register on the [employer] [facility] Patient Portal for access to your information. You can also access the [facility] Patient Portal on the [employer] yen. Simply click on Health Records under [employer] and then click on the [employer] logo. HOW TO SAFELY DISPOSE OF PRESCRIPTION MEDICATIONS Please use one of the following methods to safely dispose of your unused medications. 1.Use a drug disposal kit: the drug disposal pouch allows you to safely discard your old and unuseddrugs. Ask your nurse to give you one when you are discharged.2.Visit a local take-back location: Many local pharmacies and police departments have programs that collect old and unwanted prescriptiondrugs. Call your local pharmacy or go to http://Jiberish.Zenefits/0N9Nq3i to find one close to you.3.Make use of household items: Use cat litter or old coffee grounds to dispose medications if other options arenot available. Mix your drugs with these household products, seal them in an airtight container andthrow it into the garbage. Call [facility]: [phone] to be sure your drugs can be disposed of in this way. Some medicines may require a different approach.4.Never flush your medications down the toilet. IF YOU HAVE BEEN PRESCRIBED AN OPIOID FOR PAIN If you have been prescribed an opioid (such as hydrocodone, oxycodone or morphine), it is critical to understand the possible side effects and risks of opioid pain medications. Even when taken as directed, opioids can have several side effects including: Tolerance, meaning you might need to take more of a medication for the same pain relief. Nausea, vomiting and/or constipation. Sleepiness, dizziness, dry mouth, confusion, depression or itching. Physical dependence, meaning you have withdrawal symptoms when a medication is stopped, can develop within a few days. KNOW YOUR RESPONSIBILITIES It is important to know exactly how much and how often to take the opioid pain medications you are prescribed. Never take opioids in higher amounts or more often than prescribed. Do not combine opioids with alcohol or other drugs that cause drowsiness, such as benzodiazepines, also known as benzos, including diazepam and alprazolam, muscle relaxants or sleep aids. Never sell or share prescription opioids. This is illegal. Store opioids in a secure place and out of reach of others (including children, family, friends and visitors). The last page of this document has been signed and retained as a CHART COPY. Signatures Patient Education Materials Radiology- Procedure/Biopsy 09/29/2019 (CUSTOM) Medication Leaflets My discharge plan and instructions have been reviewed and explained to me and I,PATRICK KOROMA understand my current condition and have read and understand these discharge instructions. I have received a written copy of the plan/instructions. If I have questions, I am aware that I should contact my doctor. Patient/Mica Miner Signature: Date/Time: Relationship to Patient: Witness Name/Signature: Date/Time: [id number] Note IR Procedure Record Summary Primary Physician: ROSHNI FLORES PA-C Finalized Date/Time: 09/05/22 11:48:45 Pt. Name: PATRICK KOROMA Cesar SauerB./Sex: 1980 Male Med Rec #: [id number] Physician: Financial #: [id number] Pt. Type: O Room/Bed: / Admit/Disch: 09/05/22 09:48:00 - Institution: Allergies identified in patient's electronic medical record at time of printing on 09/05/22 Entry 1 Entry 2 Entry 3 Substance Keflex Keppra Tape, Paper Reaction Type Allergy Allergy Side Effect Last Modified By: Izabel Small RN, RN Anne E KINDBOM, RN JANE 10/31/16 23:03:04 08/10/13 02:23:55 08/23/13 02:36:21 Entry 4 Entry 5 Substance morphine naproxen Reaction Type Allergy Allergy Last Modified By: IBETH Skelton RN James M 08/10/13 02:22:39 09/05/17 22:20:56 Case Attendance- IR Entry 1 Entry 2 Entry 3 Case Attendee ROSHNI FLORES Jacque M. Allen, Field NaturalistVerito Joe PA-C Role Performed Primary Surgeon Scrub Technologist Circulating Technologist Details Time In 09/05/22 11:32:00 09/05/22 11:21:00 09/05/22 11:21:00 Time Out 09/05/22 11:53:00 09/05/22 11:53:00 09/05/22 11:53:00 Procedure/Preference IR Drainage Peritoneal IR Drainage Peritoneal IR Drainage Peritoneal Card Abscess Guide SN Abscess Guide SN Abscess Guide SN Last Modified By: IBETH Regalado RN Corey Snider, RN Corey 09/05/22 11:45:18 09/05/22 11:45:18 09/05/22 11:45:18 Entry 4 Case Attendee IBETH Regalado Role Performed Custom Van Converter 1 Details Time In 09/05/22 11:21:00 Time Out 09/05/22 11:53:00 Procedure/Preference IR Drainage Peritoneal Card Abscess Guide SN Last Modified By: IBETH Regalado 09/05/22 11:45:18 Radiology Procedures- IR Entry 1 Procedure/Preference IR Drainage Peritoneal Actual Procedure ir drainage peritoneal Card Abscess Guide SN abscess guide sn Primary Procedure Yes Primary Surgeon ROSHNI FLORES PA-C Anesthesia/Sedation Local Type Additional Procedure Times Start 09/05/22 11:32:00 Stop 09/05/22 11:45:00 Specialty Service SN Radiology Procedure EBL 1 mL Last Modified By: IBETH Regalado 09/05/22 11:45:55 Radiology Procedure Details - IR Entry 1 Radiology Sedation Case Times Sedation Total Time 0min Radiology - Fluid/Drainage Fluid Amount mL: 140 Fluid Description brown Radiology Contrast Contrast Used? No Radiology Flouroscopy Fluoroscopy Used? Yes Fluoro Dose (mGy) 50.72 Fluoro Time 0min Radiology Local Local Used? Yes Local Type: lidocaine 2% Local Dose 10ml Radiology Procedure Site Site/Location abdomen Site Condition No complications Suture 2.0 Ethilon Suture Dressing Type Gauze sponge 4 X 4, Transparent Technologist Notes LLQ 7f drain Last Modified By: IBETH Regalado 09/05/22 11:48:23 General Case Data - IR Entry 1 Case Information Room IR 18 Case Level IR Level 2 Wound Class None Specialty SN Radiology Procedure ASA Class None Diagnosis Preop Diagnosis LLQ seroma Postop Same As Preop Yes Postop Diagnosis LLQ seroma Last Modified By: IBETH Regalado 09/05/22 11:27:01 Procedure Case Times- IR Entry 1 Patient In Procedure Patient In OR 09/05/22 11:21:00 Patient Out of OR 09/05/22 11:53:00 Procedure Start/Stop Procedure Start Time 09/05/22 11:32:00 Procedure Stop Time 09/05/22 11:45:00 Last Modified By: IBETH Regalado 09/05/22 11:45:17 Immediate Post Procedure Note - IR Entry 1 Immediate Post Yes Findings LLQ seroma 7Fr drain Procedure Note placement displayed for Physician to review Closure Technique Closure Technique Other than Primary Last Modified By: IBETH Regalado 09/05/22 11:45:49 Immediate Post Procedure Note - IR Signed By: ROSHNI FLORES PA-C 09/05/22 11:45 Allergy Information- IR Entry 1 Allergies Reviewed? Yes Allergies Reviewed Medical Record With Last Modified By: IBETH Regalado 09/05/22 11:23:33 Radiology Protocols/Time Out- IR Entry 1 Preprocedure Clinician Verifies Correct patient ID When Clinically Confirmation of correct using name & date Indicated side(s) and site(s), or MRN, Accurate Correct diagnostic and procedure, complete radiology tests Informed Consent, H & P available, Required update immediately blood products, prior to procedure, if implants, devices applicable and/or special equipment available OR/Procedure Room/Bedside Time 09/05/22 11:32:00 Clinician Verifies Correct patient identity including EMR & records using name and date or medical record number, Accurate procedure consent form, Correct patient position, Necessary equipment is available, Anticipated non-routine events with surgical team (case duration, estimated blood loss, patient specific concerns)., Cox patient factors for recovery and management identified with surgical team. When Applicable Confirmation correct Team Members ROSHNI FLORES side and site marked, Present for Time Out Jus ZARATE Jacque Relevant images and Jose Mejía Field Naturalist results are properly Sabine Joe RN Corey labeled and appropriately displayed, Alcohol based prep dry, Double verification of sterility indicators complete Instrument Sterility Team Members ROSHNI FLORES Verifying Sterility Jus ZARATE Jacque M. Procedure IR Drainage Peritoneal Abscess Guide SN Last Modified By: IBETH Regalado 09/05/22 11:45:04 Skin Prep- IR Entry 1 Procedure IR Drainage Peritoneal Abscess Guide SN Skin Prep Prep Area Abdomen Side Left, Lower By Lacey Luu Prep Agents Chloraprep Hair Removal Method N/A Last Modified By: IBETH Regalado 09/05/22 11:26:01 Patient Positioning- IR Entry 1 Procedure IR Drainage Peritoneal Body Position OP Supine Abscess Guide SN Feet Uncrossed? Yes Pressure Points Yes Checked Last Modified By: IBETH Regalado 09/05/22 11:26:10 Radiology Procedure Plan - IR Entry 1 Radiology - Nursing Care Plan Outcome Statement The patient Outcome Statement The patient receives demonstrates knowledge Cont. appropriate of the expected medication(s), safely responses to the administered during the operative/invasive perioperative/invasive procedure., The period., The patient is patient's value system, free from signs and lifestyle, ethnicity, symptoms of injury and culture are caused by extraneous considered, respected, objects (equipment, and incorporated in the instrumentation, perioperative plan of sponges, or sharps). care., The patient is free from signs and symptoms of infection., The patient is free from signs and symptoms of injury related to positioning. Radiology - Action Plan Outcomes Met? Yes Arborer IBETH Regalado Completing Procedure Plan Last Modified By: IBETH Regalado 09/05/22 11:26:48 Case Comments Finalized By: IBETH Regalado Document Signatures Signed By: IBETH Regalado 09/05/22 11:48 [id number] Discharge instructions Patient Education 08/28/2022 21:50:43 Seroma, Postsurgical Postsurgical Seroma A seroma is a sterile collection of fluid under the skin, usually at the site of a surgical incision. Fluid builds up under the skin where tissue was removed. It may form soon after your surgery. Or it may form up to about 1 to 2 weeks after surgery. It may look like a swollen lump and feel tender or sore. A small seroma is not dangerous. Depending on its size and symptoms, it may not need to be treated.The seroma may go away on its own within a few weeks or months. Your body slowly absorbs the fluid.No medicine will make it go away faster. But if you have a large seroma or if it is causing pain, your healthcare provider may drain it. This is done with a syringe and needle. Or the provider may put in a drain. Seromas can return and may need to be drained multiple times. Rarely, you may need a minor procedure to remove the seroma. Long-term problems from a seroma are rare. Home care You may be given medicines to relieve pain. These may include acetaminophen and ibuprofen. Take these as directed. Check the seroma daily for the signs of infection listed below. Follow-up care Follow up with your healthcare provider, or as advised. When to seek medical advice Call your healthcare provider right away if you have signs of infection: Fever of 100.4 F (38 C) or higher, or as directed by your healthcare provider Seroma or skin around it feels warm Pain in the seroma that gets worse Redness or swelling that gets worse Also call your provider right away if any of these occur: Drainage from the seroma that is white or colored or very bloody. Clear or slightly bloody drainageis normal. Wound opens up Rapid heart rate Shortness of breath [phone] [employer] [place] [address]. All rights reserved. This information is not intended as a substitute for professional medical care. Always follow yourhealthcare professional's instructions. Follow Up Care 08/28/2022 19:04:00 With:AARON DUQUE MD, Surgery Address: [address] [phone] When:2-4 days [facility] 03-15-2023 Emergency department Discharge summary Discharge Instructions Thank you for allowing [facility] to assist you with your healthcare needs. The following is importantdischarge information regarding your hospital visit. Diagnosis from Today's Visit Seroma Abdominal pain What to Do Next Instructions from Your Care Team No qualifying data available. Post Acute Orders No qualifying data available. You Need to Schedule the Following Appointments Follow Up with AARON DUQUE MD, Surgery When Within 2-4 days Where: [address] [facility] [address] [place] [address] [phone] Allergies Keflex Keppra (Rash) Tape, Paper (Rash) morphine (Rash) naproxen Medications Please ask your primary doctor or pharmacist before taking any other medication not listed, including over the counter drugs, herbal medications, vitamins and or supplements as they may interact withyour home medications. What How Much When Why Instructions Last Dose New acetaminophen-hydrocodone (Tynan 325- 5 mg oral tablet) 1 tab(s) by mouth Every 6 hours as needed for as needed for pain Seroma Duration: 3 Days Printed Prescription Unchanged carBAMazepine (TEGretol 200 mg oral tablet) 3 tab(s) by mouth Two (2) times a day Seizure Post-operative state s/p umbilical hernia repair, possible seizure following surgery Unchanged ondansetron (ondansetron 4 mg oral tablet) TAKE 1 TAB(S) ORAL EVERY 8 HOURS NEEDED FOR NAUSEA AND VOMITING Please take this list to your next doctor s visit. Bring all medications you take, including over the counter medications, herbals and other supplements with you to your doctor s visit. Patients and families are reminded to discard old lists and to update any records with all medication providers or retail pharmacies. Education Materials Postsurgical Seroma A seroma is a sterile collection of fluid under the skin, usually at the site of a surgical incision. Fluid builds up under the skin where tissue was removed. It may form soon after your surgery. Or it may form up to about 1 to 2 weeks after surgery. It may look like a swollen lump and feel tender or sore. A small seroma is not dangerous. Depending on its size and symptoms, it may not need to be treated.The seroma may go away on its own within a few weeks or months. Your body slowly absorbs the fluid.No medicine will make it go away faster. But if you have a large seroma or if it is causing pain, your healthcare provider may drain it. This is done with a syringe and needle. Or the provider may put in a drain. Seromas can return and may need to be drained multiple times. Rarely, you may need a minor procedure to remove the seroma. Long-term problems from a seroma are rare. Home care You may be given medicines to relieve pain. These may include acetaminophen and ibuprofen. Take these as directed. Check the seroma daily for the signs of infection listed below. Follow-up care Follow up with your healthcare provider, or as advised. When to seek medical advice Call your healthcare provider right away if you have signs of infection: Fever of 100.4 F (38 C) or higher, or as directed by your healthcare provider Seroma or skin around it feels warm Pain in the seroma that gets worse Redness or swelling that gets worse Also call your provider right away if any of these occur: Drainage from the seroma that is white or colored or very bloody. Clear or slightly bloody drainageis normal. Wound opens up Rapid heart rate Shortness of breath [phone] [address] [employer] [place] [address]. All rights reserved. This information is not intended as a substitute for professional medical care. Always follow yourhealthcare professional's instructions. Additional Information VACCINATE! IT SAVES LIVES! Members of the community who have not yet received the COVID-19 vaccine and would like to receive it can visit one of [facility] vaccine clinics. There are many vaccine clinic locations within the [facility]. For locations and available times, please visit [email or web address] It is important to note that some COVID mobile vaccine clinics are held outdoors and may be canceled in rainy or stormy conditions. To learn more about pediatric vaccinations (ages 5-11), we invite you to visit the [facility] webpage. https://[email or web address]/pages/[email or web address] [email or web address].htmlTo learn more about the COVID-19 vaccine, we invite you to visit the CDC website for a list of frequently asked questions. https://www.cdc.gov/coronavirus/2019-ncov/vaccines/faq.html [facility] Patient Portal Access Instructions: Stay connected with your healthcare team and access your personal medical information anytime with the [facility] Patient Portal. If you would like a full copy of your medical records please contact the [facility] Medical Records Department Friday through Friday between 8a.m. and 4:30p.m. Please follow the directions below to access the portal: 1.Access the email account you provided upon registration to the [facility].2.Look for an invitation email from [facility].3.Open the email and access the invitation link: Accept Invitation to [facility]4.Fill in the required vegas to create your account. Sign into [email or web address] with your username and password that you created in the above steps to stay up to date. You can then view a summary of results, a summary of your visits, and the ability to download your summaries to your computer or send the information securely to a physician. Remember that your healthcare information is confidential, so carefully consider who you will allow to register on the [facility] Patient Portal for access to your information. You can also access the [employer] Patient Portal on the [employer]. Simply click on Health Records under [employer] and then click on the [employer] logo. HOW TO SAFELY DISPOSE OF PRESCRIPTION MEDICATIONS Please use one of the following methods to safely dispose of your unused medications. 1.Use a drug disposal kit: the drug disposal pouch allows you to safely discard your old and unuseddrugs. Ask your nurse to give you one when you are discharged.2.Visit a local take-back location: Many local pharmacies and police departments have programs that collect old and unwanted prescriptiondrugs. Call your local pharmacy or go to http://Jiberish.Zenefits/6D8Iq7n to find one close to you.3.Make use of household items: Use cat litter or old coffee grounds to dispose medications if other options arenot available. Mix your drugs with these household products, seal them in an airtight container andthrow it into the garbage. Call [facility]: [phone] to be sure your drugs can be disposed of in this way. Some medicines may require a different approach.4.Never flush your medications down the toilet. IF YOU HAVE BEEN PRESCRIBED AN OPIOIDS FOR PAIN If you have been prescribed an opioid (such as hydrocodone, oxycodone or morphine), it is critical to understand the possible side effects and risks of opioid pain medications. Even when taken as directed, opioids can have several side effects including: Tolerance, meaning you might need to take more of a medication for the same pain relief. Nausea, vomiting and/or constipation. Sleepiness, dizziness, dry mouth, confusion, depression or itching. Physical dependence, meaning you have withdrawal symptoms when a medication is stopped ? this can develop within a few days. KNOW YOUR RESPONSIBILITIES It is important to know exactly how much and how often to take the opioid pain medications you are prescribed. Never take opioids in higher amounts or more often than prescribed. Do not combine opioids with alcohol or other drugs that cause drowsiness, such as benzodiazepines, also known as benzos,including diazepam and alprazolam, muscle relaxants or sleep aids. Never sell or share prescriptionopioids. This is illegal. Store opioids in a secure place and out of reach of others (including children, family, friends and visitors). The last page(s) of this document has been signed and retained as a CHART COPY Signatures Patient Education Materials Seroma, Postsurgical Medication Leaflets My discharge plan and instructions have been reviewed and explained to me and I,PATRICK KOROMA understand my current condition and have read and understand these discharge instructions. I have received a written copy of the plan/instructions. If I have questions, I am aware that I should contact my doctor. Patient/Mica Miner Signature: Date/Time: Relationship to Patient: Witness Name/Signature: Date/Time: [facility]03-15-2023 Note ORIGINAL EXAMINATION: CT OF THE ABDOMEN AND PELVIS WITH CONTRAST 08/28/2022 9:15 pm TECHNIQUE: CT of the abdomen and pelvis was performed with the administration of intravenous contrast. Multiplanar reformatted images are provided for review. Automated exposure control, iterative reconstruction, and/or weight based adjustment of the mA/kV was utilized to reduce the radiation dose to as low as reasonably achievable. COMPARISON: Prior CT of the abdomen and pelvis dated 08/18/2022. HISTORY: ORDERING SYSTEM PROVIDED HISTORY: Reason for Exam: abdominal pain Recent umbilical hernia repair. FINDINGS: The visualized lung bases are clear. There is no pleural or pericardial effusion. The heart is not enlarged. The liver is unremarkable. The gallbladder is normal. The spleen, bilateral adrenal glands, and pancreas are normal. The kidneys enhance symmetrically bilaterally. There is no hydronephrosis or obstructive uropathy. Evaluation of the gastrointestinal tract demonstrates no evidence of obstruction. The appendix is surgically absent. There is no free intra-abdominal air or free fluid identified. No enlarged lymphadenopathy is appreciated. The aorta is nondilated. The bladder is unremarkable. The prostate is normal. The visualized subcutaneous soft tissues demonstrate small left fat containing inguinal hernia. There is redemonstration of a large subcutaneous simple attenuation fluid collection overlying the left anterior abdomen. This currently measures 11.5 x 5.5 x 11.2 cm (previously 12.8 x 6.0 x 12.6 cm on my remeasurement). Adjacent fat stranding is noted. There is an additional fluid collection within the midline abdominal incision/umbilicus measuring 3.2 x 3.1 x 2.9 cm (previously 2.9 x 3.4 x 3.3 cm on my remeasurement). Adjacent fat stranding is again noted. The bony structures demonstrate no acute fracture or subluxation. Mild degenerative changes are noted. No aggressive osseous lesion is identified. IMPRESSION: Mild decrease in size of the large subcutaneous fluid collection of the anterior left hemiabdomen likely a postoperative seroma. Stable to minimally decreased midline subcutaneous abdominal fluid collection. Small fat containing left inguinal hernia. Interpreted by: Daryl Maldonado MD Preliminary Report By: Daryl Maldonado MD Electronically signed By Daryl Maldonado MD Dictated Date: 08/28/2022 9:20:09 PM Prelim Date: 08/28/2022 9:32:42 PM Sign Date: 08/28/2022 9:32:42 PM Ordering Provider: [facility]03-15-2023 Note ORIGINAL EXAMINATION: CT OF THE ABDOMEN AND PELVIS WITH CONTRAST 08/28/2022 9:15 pm TECHNIQUE: CT of the abdomen and pelvis was performed with the administration of intravenous contrast. Multiplanar reformatted images are provided for review. Automated exposure control, iterative reconstruction, and/or weight based adjustment of the mA/kV was utilized to reduce the radiation dose to as low as reasonably achievable. COMPARISON: Prior CT of the abdomen and pelvis dated 08/18/2022. HISTORY: ORDERING SYSTEM PROVIDED HISTORY: Reason for Exam: abdominal pain Recent umbilical hernia repair. FINDINGS: The visualized lung bases are clear. There is no pleural or pericardial effusion. The heart is not enlarged. The liver is unremarkable. The gallbladder is normal. The spleen, bilateral adrenal glands, and pancreas are normal. The kidneys enhance symmetrically bilaterally. There is no hydronephrosis or obstructive uropathy. Evaluation of the gastrointestinal tract demonstrates no evidence of obstruction. The appendix is surgically absent. There is no free intra-abdominal air or free fluid identified. No enlarged lymphadenopathy is appreciated. The aorta is nondilated. The bladder is unremarkable. The prostate is normal. The visualized subcutaneous soft tissues demonstrate small left fat containing inguinal hernia. There is redemonstration of a large subcutaneous simple attenuation fluid collection overlying the left anterior abdomen. This currently measures 11.5 x 5.5 x 11.2 cm (previously 12.8 x 6.0 x 12.6 cm on my remeasurement). Adjacent fat stranding is noted. There is an additional fluid collection within the midline abdominal incision/umbilicus measuring 3.2 x 3.1 x 2.9 cm (previously 2.9 x 3.4 x 3.3 cm on my remeasurement). Adjacent fat stranding is again noted. The bony structures demonstrate no acute fracture or subluxation. Mild degenerative changes are noted. No aggressive osseous lesion is identified. IMPRESSION: Mild decrease in size of the large subcutaneous fluid collection of the anterior left hemiabdomen likely a postoperative seroma. Stable to minimally decreased midline subcutaneous abdominal fluid collection. Small fat containing left inguinal hernia. Interpreted by: Daryl Maldonado MD Preliminary Report By: Daryl Maldonado MD Electronically signed By Daryl Mladonado MD Dictated Date: 08/28/2022 9:20:09 PM Prelim Date: 08/28/2022 9:32:42 PM Sign Date: 08/28/2022 9:32:42 PM Ordering Provider: [facility]03-05-2023 Hospital Discharge instructions Patient Education 08/18/2022 15:55:37 Seroma, Postsurgical Postsurgical Seroma A seroma is a sterile collection of fluid under the skin, usually at the site of a surgical incision. Fluid builds up under the skin where tissue was removed. It may form soon after your surgery. Or it may form up to about 1 to 2 weeks after surgery. It may look like a swollen lump and feel tender or sore. A small seroma is not dangerous. Depending on its size and symptoms, it may not need to be treated.The seroma may go away on its own within a few weeks or months. Your body slowly absorbs the fluid.No medicine will make it go away faster. But if you have a large seroma or if it is causing pain, your healthcare provider may drain it. This is done with a syringe and needle. Or the provider may put in a drain. Seromas can return and may need to be drained multiple times. Rarely, you may need a minor procedure to remove the seroma. Long-term problems from a seroma are rare. Home care You may be given medicines to relieve pain. These may include acetaminophen and ibuprofen. Take these as directed. Check the seroma daily for the signs of infection listed below. Follow-up care Follow up with your healthcare provider, or as advised. When to seek medical advice Call your healthcare provider right away if you have signs of infection: Fever of 100.4 F (38 C) or higher, or as directed by your healthcare provider Seroma or skin around it feels warm Pain in the seroma that gets worse Redness or swelling that gets worse Also call your provider right away if any of these occur: Drainage from the seroma that is white or colored or very bloody. Clear or slightly bloody drainageis normal. Wound opens up Rapid heart rate Shortness of breath [id number] [employer] [place] [address]. All rights reserved. This information is not intended as a substitute for professional medical care. Always follow yourhealthcare professional's instructions. Follow Up Care 08/18/2022 11:30:43 With:AARON DUQUE MD, Surgery Address: [address] [facility] [place] [address]- [phone] When:2-4 days [facility] 03-05-2023 Note ORIGINAL EXAMINATION: CT OF THE ABDOMEN AND PELVIS WITH CONTRAST 08/18/2022 2:48 pm TECHNIQUE: CT of the abdomen and pelvis was performed with the administration of intravenous contrast. Multiplanar reformatted images are provided for review. Automated exposure control, iterative reconstruction, and/or weight based adjustment of the mA/kV was utilized to reduce the radiation dose to as low as reasonably achievable. COMPARISON: CT abdomen and pelvis 07/22/2022 HISTORY: ORDERING SYSTEM PROVIDED HISTORY: Reason for Exam: PT STATES TENDERNESS, SWELLING, & PAIN ON LEFT SIDE POST HERNIA (UMBILICAL) REPAIR MAX FOV USED abdominal pain/ hx hernia surgery with seromas Appendectomy FINDINGS: Multilevel degenerative changes throughout the spine. Small bilateral fat containing inguinal hernias. Within the subcutaneous fat of the left anterior abdominal wall there is a new fluid collection which measures 13.0 x 5.9 x 12.9 cm (oblique medial-lateral by oblique AP by craniocaudal dimensions). There is moderate surrounding infiltrative change/edema within the subcutaneous fat. There is a midline abdominal wall incision. There may be an additional smaller less well-defined collection adjacent to the incision on image 93 of series 2, measuring up to 2.6 cm. The included lung bases are clear. The liver, gallbladder, spleen, pancreas and both adrenal glands are unremarkable. Symmetric nephrograms. There is a 1.4 cm hypodense left mid renal lesion which is unchanged from multiple comparison studies dating back to 10/26/2021 and is difficult to definitively characterize but most likely represents a cyst. No renal calculi or hydronephrosis. No focal bladder wall thickening. The prostate is unremarkable. The small bowel is normal caliber and without evidence of inflammatory change. The large bowel appears within normal limits. The appendix is surgically absent. No pathologically enlarged lymph nodes. No free air or free fluid. The aorta is mildly atherosclerotic and nonaneurysmal. IMPRESSION: New 13 cm fluid collection within the left anterior abdominal wall subcutaneous fat most likely representing a seroma or hematoma given the patient's recent surgical history. There appears to be an additional smaller less well-defined fluid collection adjacent to the midline abdominal surgical incision. There is infiltrative change within the surrounding subcutaneous fat. Other chronic and incidental findings as described above. I have reviewed the resident's preliminary report and agree with findings and impression. Interpreted by: Anthony Miner Preliminary Report By: Zoila Mabry Electronically signed By Anthony Miner Dictated Date: 08/18/2022 3:07:53 PM Prelim Date: 08/18/2022 3:20:18 PM Sign Date: 08/18/2022 4:08:21 PM [id number] Discharge summary Discharge Instructions Thank you for allowing [facility] to assist you with your healthcare needs. The following is importantdischarge information regarding your hospital visit. Diagnosis from Today's Visit Seroma Abdominal pain, redness, swelling What to Do Next Instructions from Your Care Team No qualifying data available. Post Acute Orders No qualifying data available. You Need to Schedule the Following Appointments Follow Up with AARON DUQUE MD, Surgery When Within 2-4 days Where: [address] [facility] [place] [address] [phone] Allergies Keflex Keppra (Rash) Tape, Paper (Rash) morphine (Rash) naproxen Medications Please ask your primary doctor or pharmacist before taking any other medication not listed, including over the counter drugs, herbal medications, vitamins and or supplements as they may interact withyour home medications. What How Much When Why Instructions Last Dose New acetaminophen-hydrocodone (Tynan 325- 5 mg oral tablet) 1 tab(s) by mouth Every 6 hours as needed for as needed for pain Seroma Duration: 3 Days Printed Prescription Unchanged carBAMazepine (TEGretol 200 mg oral tablet) 3 tab(s) by mouth Two (2) times a day Seizure Post-operative state s/p umbilical hernia repair, possible seizure following surgery Unchanged ondansetron (ondansetron 4 mg oral tablet) TAKE 1 TAB(S) ORAL EVERY 8 HOURS NEEDED FOR NAUSEA AND VOMITING Please take this list to your next doctor s visit. Bring all medications you take, including over the counter medications, herbals and other supplements with you to your doctor s visit. Patients and families are reminded to discard old lists and to update any records with all medication providers or retail pharmacies. Education Materials Postsurgical Seroma A seroma is a sterile collection of fluid under the skin, usually at the site of a surgical incision. Fluid builds up under the skin where tissue was removed. It may form soon after your surgery. Or it may form up to about 1 to 2 weeks after surgery. It may look like a swollen lump and feel tender or sore. A small seroma is not dangerous. Depending on its size and symptoms, it may not need to be treated.The seroma may go away on its own within a few weeks or months. Your body slowly absorbs the fluid.No medicine will make it go away faster. But if you have a large seroma or if it is causing pain, your healthcare provider may drain it. This is done with a syringe and needle. Or the provider may put in a drain. Seromas can return and may need to be drained multiple times. Rarely, you may need a minor procedure to remove the seroma. Long-term problems from a seroma are rare. Home care You may be given medicines to relieve pain. These may include acetaminophen and ibuprofen. Take these as directed. Check the seroma daily for the signs of infection listed below. Follow-up care Follow up with your healthcare provider, or as advised. When to seek medical advice Call your healthcare provider right away if you have signs of infection: Fever of 100.4 F (38 C) or higher, or as directed by your healthcare provider Seroma or skin around it feels warm Pain in the seroma that gets worse Redness or swelling that gets worse Also call your provider right away if any of these occur: Drainage from the seroma that is white or colored or very bloody. Clear or slightly bloody drainageis normal. Wound opens up Rapid heart rate Shortness of breath [phone] [employer]. [address] [place] [address], [place] [address]. All rights reserved. This information is not intended as a substitute for professional medical care. Always follow yourhealthcare professional's instructions. Additional Information VACCINATE! IT SAVES LIVES! Members of the community who have not yet received the COVID-19 vaccine and would like to receive it can visit one of [facility] vaccine clinics. There are many vaccine clinic locations within the [facility]. For locations and available times, please visit [email or web address]/. It is important to note that some COVID mobile vaccine clinics are held outdoors and may be canceled in rainy or stormy conditions. To learn more about pediatric vaccinations (ages 5-11), we invite you to visit the [facility] webpage. https://www.[email or web address].org/pages/[email or web address]-Bgdahbjnzig-Kdmqtrvujo-Nooac-Nil stions.htmlTo learn more about the COVID-19 vaccine, we invite you to visit the CDC website for a list of frequently asked questions. https://www.cdc.gov/coronavirus/2019-ncov/vaccines/faq.html [facility] Patient Portal Access Instructions: Stay connected with your healthcare team and access your personal medical information anytime with the [facility] [employer] Patient Portal. If you would like a full copy of your medical records please contact the [facility] Medical Records Department Friday through Friday between 8a.m. and 4:30p.m. Please follow the directions below to access the portal: 1.Access the email account you provided upon registration to the [facility].2.Look for an invitation email from [facility].3.Open the email and access the invitation link: [facility].Fill in the required vegas to create your account. Sign into [email or web address] with your username and password that you created in the above steps to stay up to date. You can then view a summary of results, a summary of your visits, and the ability to download your summaries to your computer or send the information securely to a physician. Remember that your healthcare information is confidential, so carefully consider who you will allow to register on the [facility] [employer] Patient Portal for access to your information. You can also access the [facility] [employer] Patient Portal on the [employer]. Simply click on Health Records under [employer] and then click on the [facility] logo. HOW TO SAFELY DISPOSE OF PRESCRIPTION MEDICATIONS Please use one of the following methods to safely dispose of your unused medications. 1.Use a drug disposal kit: the drug disposal pouch allows you to safely discard your old and unuseddrugs. Ask your nurse to give you one when you are discharged.2.Visit a local take-back location: Many local pharmacies and police departments have programs that collect old and unwanted prescriptiondrugs. Call your local pharmacy or go to http://Jiberish.Zenefits/6Q3Yb1f to find one close to you.3.Make use of household items: Use cat litter or old coffee grounds to dispose medications if other options arenot available. Mix your drugs with these household products, seal them in an airtight container andthrow it into the garbage. Call [facility]: [phone] to be sure your drugs can be disposed of in this way. Some medicines may require a different approach.4.Never flush your medications down the toilet. IF YOU HAVE BEEN PRESCRIBED AN OPIOIDS FOR PAIN If you have been prescribed an opioid (such as hydrocodone, oxycodone or morphine), it is critical to understand the possible side effects and risks of opioid pain medications. Even when taken as directed, opioids can have several side effects including: Tolerance, meaning you might need to take more of a medication for the same pain relief. Nausea, vomiting and/or constipation. Sleepiness, dizziness, dry mouth, confusion, depression or itching. Physical dependence, meaning you have withdrawal symptoms when a medication is stopped ? this can develop within a few days. KNOW YOUR RESPONSIBILITIES It is important to know exactly how much and how often to take the opioid pain medications you are prescribed. Never take opioids in higher amounts or more often than prescribed. Do not combine opioids with alcohol or other drugs that cause drowsiness, such as benzodiazepines, also known as benzos,including diazepam and alprazolam, muscle relaxants or sleep aids. Never sell or share prescriptionopioids. This is illegal. Store opioids in a secure place and out of reach of others (including children, family, friends and visitors). The last page(s) of this document has been signed and retained as a CHART COPY Signatures Patient Education Materials Seroma, Postsurgical Medication Leaflets My discharge plan and instructions have been reviewed and explained to me and I,PATRICK KOROMA understand my current condition and have read and understand these discharge instructions. I have received a written copy of the plan/instructions. If I have questions, I am aware that I should contact my doctor. Patient/Mica Miner Signature: Date/Time: Relationship to Patient: Witness Name/Signature: Date/Time: [id number] Note ORIGINAL EXAMINATION: CT OF THE ABDOMEN AND PELVIS WITH CONTRAST 08/18/2022 2:48 pm TECHNIQUE: CT of the abdomen and pelvis was performed with the administration of intravenous contrast. Multiplanar reformatted images are provided for review. Automated exposure control, iterative reconstruction, and/or weight based adjustment of the mA/kV was utilized to reduce the radiation dose to as low as reasonably achievable. COMPARISON: CT abdomen and pelvis 07/22/2022 HISTORY: ORDERING SYSTEM PROVIDED HISTORY: Reason for Exam: PT STATES TENDERNESS, SWELLING, & PAIN ON LEFT SIDE POST HERNIA (UMBILICAL) REPAIR MAX FOV USED abdominal pain/ hx hernia surgery with seromas Appendectomy FINDINGS: Multilevel degenerative changes throughout the spine. Small bilateral fat containing inguinal hernias. Within the subcutaneous fat of the left anterior abdominal wall there is a new fluid collection which measures 13.0 x 5.9 x 12.9 cm (oblique medial-lateral by oblique AP by craniocaudal dimensions). There is moderate surrounding infiltrative change/edema within the subcutaneous fat. There is a midline abdominal wall incision. There may be an additional smaller less well-defined collection adjacent to the incision on image 93 of series 2, measuring up to 2.6 cm. The included lung bases are clear. The liver, gallbladder, spleen, pancreas and both adrenal glands are unremarkable. Symmetric nephrograms. There is a 1.4 cm hypodense left mid renal lesion which is unchanged from multiple comparison studies dating back to 10/26/2021 and is difficult to definitively characterize but most likely represents a cyst. No renal calculi or hydronephrosis. No focal bladder wall thickening. The prostate is unremarkable. The small bowel is normal caliber and without evidence of inflammatory change. The large bowel appears within normal limits. The appendix is surgically absent. No pathologically enlarged lymph nodes. No free air or free fluid. The aorta is mildly atherosclerotic and nonaneurysmal. IMPRESSION: New 13 cm fluid collection within the left anterior abdominal wall subcutaneous fat most likely representing a seroma or hematoma given the patient's recent surgical history. There appears to be an additional smaller less well-defined fluid collection adjacent to the midline abdominal surgical incision. There is infiltrative change within the surrounding subcutaneous fat. Other chronic and incidental findings as described above. I have reviewed the resident's preliminary report and agree with findings and impression. Interpreted by: Anthony Miner Preliminary Report By: Zoila Mabry Electronically signed By Anthony Miner Dictated Date: 08/18/2022 3:07:53 PM Prelim Date: 08/18/2022 3:20:18 PM Sign Date: 08/18/2022 4:08:21 PM Ordering Provider: [id number] Hospital Discharge instructions Patient Education 07/22/2022 13:14:21 Clear Liquid Diet Clear Liquid Diet Clear liquids are any liquid that you can see through. They are also very easy to digest. You may be put on a clear liquid diet if you are recovering from irritation or infection of the stomach or intestinal tract. This diet may also be used before surgery or special procedures such as a colonoscopy. You should not be on this diet for more than 3 days. Below are some clear liquids you can have onthis diet. Adults and children over 2 years old Adults should drink a total of 2 to 3 quarts of liquid per day. It may be easier to drink small frequent servings rather than a few large ones. Liquids can include: Fruit juices. Strained orange juice or lemonade (no pulp); apple, grape, and cranberry juice; clearfruit drinks Beverages. Sport drinks, sodas, mineral water (plain or flavored), tea, black coffee, liquid gelatin (add twice the recommended amount of water) Soups. Clear broth Desserts. Plain gelatin, popsicles, fruit juice bars Children under 2 years old Oral rehydration fluids are available at drug stores and most grocery stores. You don t need a prescription. 2719-[address] [employer] [place] [address]. All rights reserved. This information is not intended as a substitute for professional medical care. Always follow yourhealthcare professional's instructions. Follow Up Care 07/22/2022 10:03:39 With:Call Physician Referral Address:Unknown When:2-4 days With:Follow up with primary care provider Address:Unknown When:2-4 days [facility] 02-06-2023 Note Discharge Instructions Thank you for allowing [facility] to assist you with your healthcare needs. The following is importantdischarge information regarding your hospital visit. Diagnosis from Today's Visit Nausea and vomiting Ileus Vomiting What to Do Next Instructions from Your Care Team Please follow Dr. Duque's instructions and follow-up with their office as scheduled. Stop using the narcotics every 6 hours only take them if you are experiencing significant pain. If despite all of this with the fluids and the clear liquid diet you are having episodes of vomiting worsening abdominal pain or you feel like your abdomen is getting bigger then please return to the emergency department. No qualifying data available. Post Acute Orders No qualifying data available. You Need to Schedule the Following Appointments Follow Up with Call Physician Referral When Within 2-4 days Follow Up with Follow up with primary care provider When Within 2-4 days Allergies Keflex Keppra (Rash) Tape, Paper (Rash) morphine (Rash) naproxen Medications Please ask your primary doctor or pharmacist before taking any other medication not listed, including over the counter drugs, herbal medications, vitamins and or supplements as they may interact withyour home medications. What How Much When Why Instructions Last Dose Unchanged acetaminophen- hydrocodone (Tynan 325- 5 mg oral tablet) 1 tab(s) by mouth Every 4 hours as needed for Pain, scale 4-6 Acute post-operative pain Duration: 7 Days Unchanged carBAMazepine (TEGretol 200 mg oral tablet) 3 tab(s) by mouth Two (2) times a day Seizure Post-operative state s/p umbilical hernia repair, possible seizure following surgery Please take this list to your next doctor s visit. Bring all medications you take, including over the counter medications, herbals and other supplements with you to your doctor s visit. Patients and families are reminded to discard old lists and to update any records with all medication providers or retail pharmacies. Education Materials Clear Liquid Diet Clear liquids are any liquid that you can see through. They are also very easy to digest. You may be put on a clear liquid diet if you are recovering from irritation or infection of the stomach or intestinal tract. This diet may also be used before surgery or special procedures such as a colonoscopy. You should not be on this diet for more than 3 days. Below are some clear liquids you can have onthis diet. Adults and children over 2 years old Adults should drink a total of 2 to 3 quarts of liquid per day. It may be easier to drink small frequent servings rather than a few large ones. Liquids can include: Fruit juices. Strained orange juice or lemonade (no pulp); apple, grape, and cranberry juice; clearfruit drinks Beverages. Sport drinks, sodas, mineral water (plain or flavored), tea, black coffee, liquid gelatin (add twice the recommended amount of water) Soups. Clear broth Desserts. Plain gelatin, popsicles, fruit juice bars Children under 2 years old Oral rehydration fluids are available at drug stores and most grocery stores. You don t need a prescription. [id number] [employer]. [address] [place] [address], [place] [address]. All rights reserved. This information is not intended as a substitute for professional medical care. Always follow yourhealthcare professional's instructions. Additional Information VACCINATE! IT SAVES LIVES! Members of the community who have not yet received the COVID-19 vaccine and would like to receive it can visit one of [facility] vaccine clinics. There are many vaccine clinic locations within the [facility]. For locations and available times, please visit [email or web address]. It is important to note that some COVID mobile vaccine clinics are held outdoors and may be canceled in rainy orstormy conditions. To learn more about pediatric vaccinations (ages 5-11), we invite you to visit the [facility] webpage. [email or web address] learn more about the COVID-19 vaccine, we invite you to visit the [facility] website for a list of frequently asked questions. [email or web address] [facility] Patient Portal Access Instructions: Stay connected with your healthcare team and access your personal medical information anytime with the [facility] Patient Portal. If you would like a full copy of your medical records please contact the [facility] Medical Records Department Friday through Friday between 8a.m. and 4:30p.m. Please follow the directions below to access the portal: 1.Access the email account you provided upon registration to the [facility].2.Look for an invitation email from [facility].3.Open the email and access the invitation link: Accept Invitation to [facility]4.Fill in the required [place]gas to create your account. Sign into [email or web address] with your username and password that you created in the above steps to stay up to date. You can then view a summary of results, a summary of your visits, and the ability to download your summaries to your computer or send the information securely to a physician. Remember that your healthcare information is confidential, so carefully consider who you will allow to register on the [facility] Patient Portal for access to your information. You can also access the [facility] Patient Portal on the [employer]. Simply click on Health Records under [employer] and then click on the [employer] logo. HOW TO SAFELY DISPOSE OF PRESCRIPTION MEDICATIONS Please use one of the following methods to safely dispose of your unused medications. 1.Use a drug disposal kit: the drug disposal pouch allows you to safely discard your old and unuseddrugs. Ask your nurse to give you one when you are discharged.2.Visit a local take-back location: Many local pharmacies and police departments have programs that collect old and unwanted prescriptiondrugs. Call your local pharmacy or go to http://Jiberish.Zenefits/5Y8Im5x to find one close to you.3.Make use of household items: Use cat litter or old coffee grounds to dispose medications if other options arenot available. Mix your drugs with these household products, seal them in an airtight container andthrow it into the garbage. Call [facility]: [phone] to be sure your drugs can be disposed of in this way. Some medicines may require a different approach.4.Never flush your medications down the toilet. IF YOU HAVE BEEN PRESCRIBED AN OPIOIDS FOR PAIN If you have been prescribed an opioid (such as hydrocodone, oxycodone or morphine), it is critical to understand the possible side effects and risks of opioid pain medications. Even when taken as directed, opioids can have several side effects including: Tolerance, meaning you might need to take more of a medication for the same pain relief. Nausea, vomiting and/or constipation. Sleepiness, dizziness, dry mouth, confusion, depression or itching. Physical dependence, meaning you have withdrawal symptoms when a medication is stopped ? this can develop within a few days. KNOW YOUR RESPONSIBILITIES It is important to know exactly how much and how often to take the opioid pain medications you are prescribed. Never take opioids in higher amounts or more often than prescribed. Do not combine opioids with alcohol or other drugs that cause drowsiness, such as benzodiazepines, also known as benzos,including diazepam and alprazolam, muscle relaxants or sleep aids. Never sell or share prescriptionopioids. This is illegal. Store opioids in a secure place and out of reach of others (including children, family, friends and visitors). The last page(s) of this document has been signed and retained as a CHART COPY Signatures Patient Education Materials Clear Liquid Diet Medication Leaflets My discharge plan and instructions have been reviewed and explained to me and I,SANTAZOEYMARITZA PATRICK Guerrero understand my current condition and have read and understand these discharge instructions. I have received a written copy of the plan/instructions. If I have questions, I am aware that I should contact my doctor. Patient/Mica Miner Signature: Date/Time: Relationship to Patient: Witness Name/Signature: Date/Time: [facility]02-06-2023 Surgery Consult note Date of Service 07/22/2022 Reason for Consultation Nausea and vomiting x24 to [address] Blanco Shaw History of Present Illness 42-year-old male who underwent an open repair of a recurrent umbilical/ventral hernia with anteriorcomponent separation here at [place] 4 days ago. The patient states that about 1 AM yesterday morning he woke up and had some vomiting. He vomited several times yesterday morning and during the day what he describes as bilious stomach contents. It is difficult to tell from his history how much quantity of emesis he had but following that he was able to keep down liquids yesterday and was drinking 7-Up without much problem. He admits that he was taking his Tynan on schedule every 6 hours and not indexing it to the degree of pain that he was having. He did have a normal solid bowel movement yesterday and has been passing plenty of flatus. He did not vomit last night nor this morning and has been drinking coffee and water this morning without difficulty but he came to the emergency room concerned about being dehydrated. At the present time he is not complaining of any substantial or uncontrolled amount of pain. He is feeling pretty good right now. He got 1 L of IV fluids here in the ER. Blood work was drawn as notedbelow and an abdominal pelvic CT scan was performed. See below. Review of Systems Pertinent review of systems is included in the history of present illness. Review of systems otherwise noncontributory except as noted above. Physical Exam Vitals and Measurements T: 37.2 C (Oral) HR: 91 RR: 16 BP: 136/89 SpO2: 96% HT: 188 cm WT: 132 kg Weight Dosing Weight: 132 kg (07/22/22) Awake alert cooperative coherent appears comfortable and in no acute distress. Skin is warm and dry. Head neck exam grossly unremarkable. Lungs are clear and equal to auscultation bilaterally. Heart sounds are regular S1-S2 no obvious murmurs. Abdomen is full but soft generally benign to exam with very mild tenderness. There is no guarding no rigidity. Bowel sounds are present and relatively normal. Incisional Prevena wound VAC dressing isin place with good seal. Ryan-Pantoja drains are in place each with very scant amounts of serosangu ineous drainage. Lab Results 07/22 10:41 WBC: 12.4 H Hgb: 13.9 L Hct: 41.1 L Platelet: 332 Neutrophil %: 80.9 H Glucose Level: 131 H Sodium Level: 135 L Potassium Level: 4.3 BUN: 16 Creatinine Lvl (s): 0.81 Imaging Results and Diagnostics Abdominal CT scan images are reviewed. There are diffusely dilated loops of small bowel with fluid-filled. A couple loops of distal ileum seem more normal caliber. Findings appear to be consistent with either a distal partial small bowel obstruction or a paralytic ileus. Assessment/Plan 1. Nausea and vomiting 2. Ileus I suspect that the patient is having nausea and vomiting due to the regular use of Tynan taking it as scheduled every 6 hours instead of using it only if needed for pain. I suspect this is probably instigating the nausea vomiting and the ileus. I do not think he has a mechanical small bowel obstruction. By lab data he is not significantly dehydrated. At this point I think he could benefit from another liter of fluid and encouraged him to go home and stay mostly on clear liquids such as the 7-Upif that would works for him. Avoid using any further Tynan unless absolutely necessary and take regular doses of Tylenol alternating with ibuprofen. As his nausea resolves hopefully over the next couple days he can reintroduce solid food. Slowly. He will have a follow-up on in the office. 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 I donot think the patient needs to be admitted at this time. 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 Electric shock Fall Full dentures Postprocedural hematoma of skin and subcutaneous tissue following other procedure Seizure TIA Umbilical hernia Historical No qualifying data Procedure/Surgical History Umbilical hernia: 07/18/22 Repair of recurrent ventral hernia: 11/22/21 History of repair of umbilical hernia: 2019 Appendectomy Medications Inpatient No active inpatient medications Home Tynan 325- 5 mg oral tablet, 1 tab(s), Oral, q4h, PRN TEGretol 200 mg oral tablet, 600 mg= 3 tab(s), Oral, BID, 1 refills Allergies Keflex Keppra (Rash) Tape, Paper (Rash) morphine (Rash) naproxen Social History Smoking Status - 03/11/2018 Current every day smoker Alcohol - Denies Alcohol Use, 12/14/2017 Use: Past., 02/14/2017 Home/Environment Domestic Concerns: None. Living situation: Home/Independent., 11/14/2021 Nutrition/Health Type of diet: Regular. Appetite Excellent. Eating Difficulties None., 11/22/2021 Substance Abuse - Denies Substance Abuse, 12/29/2016 Use: Past. Type: Marijuana., 11/23/2021 Tobacco - High Risk, 10/06/2021 Nicotine Use: 10 or more cigarettes (1/2 pack or more)/day in last 30 days. Type: Cigarettes. Started at age: 8 Years. Ready to change: No., 07/01/2022 Family History Congenital heart disease: Brother. Stroke: Mother and Father. Immunizations SARS-CoV-2 (COVID-19) mRNA-1273 vaccine: 0.25 unknown unit (04/30/21) SARS-CoV-2 (COVID-19) mRNA-1273 vaccine: 0 unknown unit (10/05/20) SARS-CoV-2 (COVID-19) mRNA-1273 vaccine: 0 unknown unit (09/06/20) Digitally Signed by AARON DUQUE MD on 07/22/2022 01:23 PM [facility]02-06-2023 Note ORIGINAL EXAMINATION: CT OF THE ABDOMEN AND PELVIS WITH CONTRAST 07/22/2022 11:25 am TECHNIQUE: CT of the abdomen and pelvis was performed with the administration of intravenous contrast. Multiplanar reformatted images are provided for review. Automated exposure control, iterative reconstruction, and/or weight based adjustment of the mA/kV was utilized to reduce the radiation dose to as low as reasonably achievable. COMPARISON: June 27, 2022 HISTORY: ORDERING SYSTEM PROVIDED HISTORY: Reason for Exam: pain FINDINGS: Minor degenerative changes are noted in the spine, greatest inferiorly. Lung bases are unremarkable. Liver, spleen, adrenal glands and pancreas are unremarkable. Tiny scattered bilateral renal cysts are present. No other kidney abnormality. A small amount of free fluid is evident within the pelvis. The colon is normal in caliber. There is some normal caliber distal ileum seen as well. Proximal to this, there is at least moderate small bowel dilatation with very minimal mesenteric haziness which may indicate congestion. No pneumatosis is visible. A focal obstructing lesion is not identified. Skin zachary are present from recent previous abdominal surgery and there are drains within the subcutaneous fat of the anterior abdominal wall. Minimal air is evident along the incision. No pneumoperitoneum present. No evidence for abscess. No other GI tract abnormality seen. No additional contributory finding. IMPRESSION: The findings are compatible with a mid grade mechanical small-bowel obstruction at the level of the mid to distal ileum. No perforation or abscess seen. Interpreted by: Rochelle Bolden MD Preliminary Report By: Rochelle Bolden MD Electronically signed By Rochelle Bolden MD Dictated Date: 07/22/2022 11:36:52 AM Prelim Date: 07/22/2022 11:41:58 AM Sign Date: 07/22/2022 11:41:58 AM Ordering Provider: [facility]02-06-2023 Note ORIGINAL EXAMINATION: CT OF THE ABDOMEN AND PELVIS WITH CONTRAST 07/22/2022 11:25 am TECHNIQUE: CT of the abdomen and pelvis was performed with the administration of intravenous contrast. Multiplanar reformatted images are provided for review. Automated exposure control, iterative reconstruction, and/or weight based adjustment of the mA/kV was utilized to reduce the radiation dose to as low as reasonably achievable. COMPARISON: June 27, 2022 HISTORY: ORDERING SYSTEM PROVIDED HISTORY: Reason for Exam: pain FINDINGS: Minor degenerative changes are noted in the spine, greatest inferiorly. Lung bases are unremarkable. Liver, spleen, adrenal glands and pancreas are unremarkable. Tiny scattered bilateral renal cysts are present. No other kidney abnormality. A small amount of free fluid is evident within the pelvis. The colon is normal in caliber. There is some normal caliber distal ileum seen as well. Proximal to this, there is at least moderate small bowel dilatation with very minimal mesenteric haziness which may indicate congestion. No pneumatosis is visible. A focal obstructing lesion is not identified. Skin zachary are present from recent previous abdominal surgery and there are drains within the subcutaneous fat of the anterior abdominal wall. Minimal air is evident along the incision. No pneumoperitoneum present. No evidence for abscess. No other GI tract abnormality seen. No additional contributory finding. IMPRESSION: The findings are compatible with a mid grade mechanical small-bowel obstruction at the level of the mid to distal ileum. No perforation or abscess seen. Interpreted by: Rochelle Bolden MD Preliminary Report By: Rochelle Bolden MD Electronically signed By Rochelle Bolden MD Dictated Date: 07/22/2022 11:36:52 AM Prelim Date: 07/22/2022 11:41:58 AM Sign Date: 07/22/2022 11:41:58 AM Ordering Provider: [facility]02-[facility]2023 Hospital Discharge instructions Patient Education 07/18/2022 11:53:26 Form - Incentive Spirometer Record Form - Incentive Spirometer Record Use your incentive spirometer as told by your health care provider. Your health care provider or respiratory therapist will help you set a goal. You are required to breathe in slowly and deeply. As you breathe in, the spirometer column will move up slowly and evenly toward your goal. Try to reach the goal marker set on the spirometer. Use this form to write down your progress. Bring this form with you to your follow-up visits. My incentive spirometer goal is to reach . Date Time Amount reached Date Time Amount reached Date Time Amount reached Date Time Amount reached Date Time Amount reached Date Time Amount reached Date Time Amount reached Date Time Amount reached Date Time Amount reached Date Time Amount reached Date Time Amount reached Date Time Amount reached Date Time Amount reached Date Time Amount reached Date Time Amount reached Date Time Amount reached Date Time Amount reached Date Time Amount reached Date Time Amount reached Date Time Amount reached Date Time Amount reached Date Time Amount reached Date Time Amount reached Date Time Amount reached Date Time Amount reached Date Time Amount reached Date Time Amount reached Date Time Amount reached Date Time Amount reached Date Time Amount reached Date Time Amount reached Date Time Amount reached Date Time Amount reached Date Time Amount reached Date Time Amount reached Date Time Amount reached Date Time Amount reached Date Time Amount reached Date Time Amount reached Date Time Amount reached Date Time Amount reached Date Time Amount reached Date Time Amount reached Date Time Amount reached Date Time Amount reached Date Time Amount reached Date Time Amount reached Date Time Amount reached Date Time Amount reached This information is not intended to replace advice given to you by your health care provider. Make sure you discuss any questions you have with your health care provider. Document Released: 06/21/2019 Document Revised: 06/21/2019 Document Reviewed: 06/21/2019 [employer] Patient Education 2019 [employer] 07/18/2022 11:53:21 How to Use an Incentive Spirometer How To Use an Incentive Spirometer An incentive spirometer is a tool that measures how well you are filling your lungs with each breath. Learning to take long, deep breaths using this tool can help you keep your lungs clear and active. This may help to reverse or lessen your chance of developing breathing (pulmonary) problems, especially infection. You may be asked to use a spirometer: After a surgery. If you have a lung problem or a history of smoking. After a long period of time when you have been unable to move or be active. If the spirometer includes an indicator to show the highest number that you have reached, your health care provider or respiratory therapist will help you set a goal. Keep a list (log) of your progress as told by your health care provider. What are the risks? Breathing too quickly may cause dizziness or cause you to pass out. Take your time so you do not get dizzy or light-headed. If you are in pain, you may need to take pain medicine before doing incentive spirometry. It is harder to take a deep breath if you are having pain. How to use your incentive spirometer 1.Sit up on the edge of your bed or on a chair. 2.Hold the incentive spirometer so that it is in an upright position. 3.Before you use the spirometer, breathe out normally. 4.Place the mouthpiece in your mouth. Make sure your lips are closed tightly around it. 5.Breathe in slowly and as deeply as you can through your mouth, causing the piston or the ball to rise toward the top of the chamber. 6.Hold your breath for 3 5 seconds, or for as long as possible. If the spirometer includes a women's basketball coach indicator, use this to guide you in breathing. Slow down your breathing if the indicator goes above the marked areas. 7.Remove the mouthpiece from your mouth and breathe out normally. The piston or ball will return tothe bottom of the chamber. 8.Rest for a few seconds, then repeat the steps 10 or more times. Take your time and take a few normal breaths between deep breaths so that you do not get dizzy or light-headed. Do this every 1 2 hours when you are awake. 9.If the spirometer includes a goal marker to show the highest number you have reached (best effort), use this as a goal to work toward during each repetition. 10.After each set of 10 deep breaths, cough a few times. This will help to make sure that your lungs are clear. If you have an incision on your chest or abdomen from surgery, place a pillow or a rolled-up towel firmly against the incision when you cough. This can help to reduce pain from coughing. General tips When you become able to get out of bed, walk around often and continue to cough to help clear your lungs. Keep using the incentive spirometer until your health care provider says it is okay to stop using it. If you have been in the hospital, you may be told to keep using the spirometer at home. Contact a health care provider if: You are having difficulty using the spirometer. You have trouble using the spirometer as often as instructed. Your pain medicine is not giving enough relief for you to use the spirometer as told. You have a fever. You develop shortness of breath. Get help right away if: You develop a cough with bloody mucus from the lungs (bloody sputum). You have fluid or blood coming from an incision site after you cough. Summary An incentive spirometer is a tool that can help you learn to take long, deep breaths to keep your lungs clear and active. You may be asked to use a spirometer after a surgery, if you have a lung problem or a history of smoking, or if you have been inactive for a long period of time. Use your incentive spirometer as instructed every 1 2 hours while you are awake. If you have an incision on your chest or abdomen, place a pillow or a rolled-up towel firmly against your incision when you cough. This will help to reduce pain. This information is not intended to replace advice given to you by your health care provider. Make sure you discuss any questions you have with your health care provider. Document Released: 10/13/2007 Document Revised: 06/25/2018 Document Reviewed: 04/15/2018 [employer] Patient Education 2020 [employer]. 07/18/2022 11:45:57 Surgical Drain Home Care Surgical Drain Home Care Surgical drains are used to remove extra fluid that normally builds up in a surgical wound after surgery. A surgical drain helps to heal a surgical wound. Different kinds of surgical drains include: Active drains. These drains use suction to pull drainage away from the surgical wound. Drainage flows through a tube to a container outside of the body. With these drains, you need to keep the bulb or the drainage container flat (compressed) at all times, except while you empty it. Flattening the bulb or container creates suction. Passive drains. These drains allow fluid to drain naturally, by gravity. Drainage flows through a tube to a bandage (dressing) or a container outside of the body. Passive drains do not need to be emptied. A drain is placed during surgery. Right after surgery, drainage is usually bright red and a little thicker than water. The drainage may gradually turn yellow or pink and become thinner. It is likely that your health care provider will remove the drain when the drainage stops or when the amount decreases to 1 2 Tbsp (15 30 mL) during a 24-hour period. Supplies needed: Tape. Germ-free cleaning solution (sterile saline). Cotton swabs. Split gauze drain sponge: 4 x 4 inches (10 x 10 cm). Gauze square: 4 x 4 inches (10 x 10 cm). How to care for your surgical drain Care for your drain as told by your health care provider. This is important to help prevent infection. If your drain is placed at your back, or any other eowq-hq-zwkjz area, ask another person to assist you in performing the following tasks: General care Keep the skin around the drain dry and covered with a dressing at all times. Check your drain area every day for signs of infection. Check for: ?Redness, swelling, or pain. ?Pus or a bad smell. ?Cloudy drainage. ?Tenderness or pressure at the drain exit site. Changing the dressing Follow instructions from your health care provider about how to change your dressing. Change your dressing at least once a day. Change it more often if needed to keep the dressing dry. Make sure you: 1.Gather your supplies. 2.Wash your hands with soap and water before you change your dressing. If soap and water are not available, use hand laborer golf course. 3.Remove the old dressing. Avoid using scissors to do that. 4.Wash your hands with soap and water again after removing the old dressing. 5.Use sterile saline to clean your skin around the drain. You may need to use a cotton swab to clean the skin. 6.Place the tube through the slit in a drain sponge. Place the drain sponge so that it covers your wound. 7.Place the gauze square or another drain sponge on top of the drain sponge that is on the wound. Make sure the tube is between those layers. 8.Tape the dressing to your skin. 9.Tape the drainage tube to your skin 1 2 inches (2.5 5 cm) below the place where the tube enters your body. Taping keeps the tube from pulling on any stitches (sutures) that you have. 10.Wash your hands with soap and water. 11.Write down the color of your drainage and how often you change your dressing. How to empty your active drain 1.Make sure that you have a measuring cup that you can empty your drainage into. 2.Wash your hands with soap and water. If soap and water are not available, use hand laborer golf course. 3.Loosen any pins or clips that hold the tube in place. 4.If your health care provider tells you to strip the tube to prevent clots and tube blockages: Hold the tube at the skin with one hand. Use your other hand to pinch the tubing with your thumb and first finger. Gently move your fingers down the tube while squeezing very lightly. This clears any drainage, clots, or tissue from the tube. You may need to do this several times each day to keep the tube clear. Do not pull on the tube. 5.Open the bulb cap or the drain plug. Do not touch the inside of the cap or the bottom of the plug. 6.Turn the device upside down and gently squeeze. 7.Empty all of the drainage into the measuring cup. 8.Compress the bulb or the container and replace the cap or the plug. To compress the bulb or the container, squeeze it firmly in the middle while you close the cap or plug the container. 9.Write down the amount of drainage that you have in each 24-hour period. If you have less than 2 Tbsp (30 mL) of drainage during 24 hours, contact your health care provider. 10.Flush the drainage down the toilet. 11.Wash your hands with soap and water. Contact a health care provider if: You have redness, swelling, or pain around your drain area. You have pus or a bad smell coming from your drain area. You have a fever or chills. The skin around your drain is warm to the touch. The amount of drainage that you have is increasing instead of decreasing. You have drainage that is cloudy. There is a sudden stop or a sudden decrease in the amount of drainage that you have. Your drain tube falls out. Your active drain does not stay compressed after you empty it. Summary Surgical drains are used to remove extra fluid that normally builds up in a surgical wound after surgery. Different kinds of surgical drains include active drains and passive drains. Active drains use suction to pull drainage away from the surgical wound, and passive drains allow fluid to drain naturally. It is important to care for your drain to prevent infection. If your drain is placed at your back, or any other iwmv-yp-ppcvh area, ask another person to assist you. Contact your health care provider if you have redness, swelling, or pain around your drain area. This information is not intended to replace advice given to you by your health care provider. Make sure you discuss any questions you have with your health care provider. Document Released: 05/30/2001 Document Revised: 07/07/2019 Document Reviewed: 07/07/2019 [employer] Patient Education 2019 [employer] 07/18/2022 11:45:56 8- Ryan Pantoja Drain (03/2018)(CUSTOM) Ryan Pantoja Drain Patient Education After surgery, you may notice a bulb-like drain, called a ChuyPantoja (ABDOULAYE) connected to tubing coming from your incision. This drain suctions and collects fluid from your incisional area. It also promotes healing and reduces the chance of infection You may have the drain for several days after surgery. While you are hospitalized, your nurse will take care of it. If you go home with the drain in place, you will need to care for it yourself. The process is easy to learn. Your nurse will show you how. How to empty the ABDOULAYE drain 1. Empty the drainage bottle as needed (usually 3 times/day), when it is half full, or as often as directed. 2. Obtain a measuring cup to collect the fluid. 3. Wash your hands thoroughly with soap and water. 4. Unpin the bottle from your dressing or shirt. 5. Remove the rubber stopper from the bottle. 6. Turn the bottle upside-down and squeeze the contents into the measuring cup. Completely empty the bottle. Note: To prevent infection, don t let the rubber stopper or top of the bottle touch the measuring cup or anything else. 7. Clean the plug with an alcohol swab or cotton ball dipped in rubbing alcohol. 8. Use one hand to squeeze all of the air from the bottle. 9. With the bottle still compressed, use your other hand to replace the rubber stopper. Do this to make sure the drain suction works well. The bottle should stay flat until it starts to fill with fluid again. 10. Pin the bottle back on your dressing or shirt to avoid pulling it out accidently. 11. Flush the fluid down the toilet. 12. Wash your hands again. Write down the time, amount and color of the drainage. Always remember to wash your hands before and after the procedure to reduce the risk of infecting the incisional area What should I do if the tubing becomes clogged? Hold the tubing between your thumb and first finger at the place closest to your skin. This hand will prevent the tube from being pulled out of your skin. Use your other thumb and first finger to slide the clog down the tubing toward the bulb. You may have to repeat the sliding until the tubing is unclogged. When should I seek immediate care? Your ABDOULAYE drain breaks or comes out When should I contact my healthcare provider? You think your ABDOULAYE drain is blocked You have brown drainage from your ABDOULAYE drain site, or the drainage smells bad You have a fever higher than 101 F (38.6 C) You have increased pain, redness or swelling around the drain site You have questions about your ABDOULAYE drain care DRAINAGE RECORD Date Time Amount Document Released: 06/02/2006 Document Revised: 05/19/2013 Document Reviewed: 06/03/2014 [employer] Patient Information 2014 [employer] [facility]. This information is not intended to replace advicegiven to you by your health care provider. Make sure you discuss any questions you have with your health care provider. 07/18/2022 11:45:46 Negative Pressure Wound Therapy Home Guide Negative Pressure Wound Therapy Home Guide Negative pressure wound therapy (NPWT) uses a sponge or foam-like material (dressing) placed on or inside the wound. The wound is then covered and sealed with a cover dressing that sticks to your skin (is adhesive). This keeps air out. A tube is attached to the cover dressing, and this tube connects to a small pump. The pump sucks fluid and germs from the wound. NPWT helps to increase blood flow to the wound and heal it from the inside. What are the risks? NPWT is usually safe to use. However, problems can occur, including: Skin irritation from the dressing adhesive. Bleeding. Infection. Dehydration. Wounds with large amounts of drainage can cause excessive fluid loss. Pain. Supplies needed: A disposable garbage bag. Soap and water, or hand laborer golf course. Wound cleanser or salt-water solution (saline). New sponge and cover dressing. Protective clothing. Gauze pad. Vinyl gloves. Tape. Skin protectant. This may be a wipe, film, or spray. Clean or germ-free (sterile) scissors. Eye protection. How to change your dressing Prepare to change your dressing 1.If told by your health care provider, take pain medicine 30 minutes before changing the dressing. 2.Wash your hands with soap and water. Dry your hands with a clean towel. If soap and water are notavailable, use hand laborer golf course. 3.Set up a clean station for wound care. 4.Open the dressing package so that the sponge dressing remains on the inside of the package. 5.Wear gloves, protective clothing, and eye protection. Remove old dressing 1.Turn off the pump and disconnect the tubing from the dressing. 2.Carefully remove the adhesive cover dressing in the direction of your hair growth. 3.Remove the sponge dressing that is inside the wound. If the sponge sticks, use a wound cleanser or saline solution to wet the sponge and help it come off more easily. 4.Throw the old sponge and cover dressing supplies into the garbage bag. 5.Remove your gloves by grabbing the cuff and turning the glove inside out. Place the gloves in thetrash immediately. 6.Wash your hands with soap and water. Dry your hands with a clean towel. If soap and water are notavailable, use hand laborer golf course. Clean your wound Wear gloves, protective clothing, and eye protection. Follow your health care provider's instructions on how to clean your wound. You may be told to: 1.Clean the wound using a saline solution or a wound cleanser and a clean gauze pad. 2.Pat the wound dry with a gauze pad. Do not rub the wound. 3.Throw the gauze pad into the garbage bag. 4.Remove your gloves by grabbing the cuff and turning the glove inside out. Place the gloves in thetrash immediately. 5.Wash your hands with soap and water. Dry your hands with a clean towel. If soap and water are notavailable, use hand laborer golf course. Apply new dressing Wear gloves, protective clothing, and eye protection. 1.If told by your health care provider, apply a skin protectant to any skin that will be exposed toadhesive. Let the skin protectant dry. 2.Cut a piece of new sponge dressing and put it on or in the wound. 3.Using clean scissors, cut a nickel-sized hole in the new cover dressing. 4.Apply the cover dressing. 5.Attach the suction tube over the hole in the cover dressing. 6.Take off your gloves. Put them in the plastic bag with the old dressing. Tie the bag shut and throw it away. 7.Wash your hands with soap and water. Dry your hands with a clean towel. If soap and water are notavailable, use hand laborer golf course. 8.Turn the pump back on. The sponge dressing should collapse. Do not change the settings on the machine without talking to a health care provider. 9.Replace the container in the pump that collects fluid if it is full. Replace the container per the carpenter inspector's instructions or at least once a week, even if it is not full. General tips and recommendations If the alarm sounds: Stay calm. Do not turn off the pump or do anything with the dressing. Reasons the alarm may go off: ?The battery is low. Change the battery or plug the device into electrical power. ?The dressing has a leak. Find the leak and put tape over the leak. ?The fluid collection container is full. Change the fluid container. Call your health care provider right away if you cannot fix the problem. Explain to your health care provider what is happening. Follow his or her instructions. General instructions Do not turn off the pump unless told to do so by your health care provider. Do not turn off the pump for more than 2 hours. If the pump is off for more than 2 hours, the dressing will need to be changed. If your health care provider says it is okay to shower: ?Do not take the pump into the shower. ?Make sure the wound dressing is protected and sealed. The wound dressing must stay dry. Check frequently that the machine indicates that therapy is on and that all clamps are open. Do not use koft-erm-ofrulzt medicated or antiseptic creams, sprays, liquids, or dressings unless your health care provider approves. Contact a health care provider if: You have new pain. You develop irritation, a rash, or itching around the wound or dressing. You see new black or yellow tissue in your wound. The dressing changes are painful or cause bleeding. The pump has been off for more than 2 hours, and you do not know how to change the dressing. The pump alarm goes off, and you do not know what to do. Get help right away if: You have a lot of bleeding. The wound breaks open. You have severe pain. You have signs of infection, such as: ?More redness, swelling, or pain. ?More fluid or blood. ?Warmth. ?Pus or a bad smell. ?Red streaks leading from the wound. ?A fever. You see a sudden change in the color or texture of the drainage. You have signs of dehydration, such as: ?Little or no tears, urine, or sweat. ?Muscle cramps. ?Very dry mouth. ?Headache. ?Dizziness. Summary Negative pressure wound therapy (NPWT) is a device that helps your wound heal. Set up a clean station for wound care. Your health care provider will tell you what supplies to use. Follow your health care provider's instructions on how to clean your wound and how to change the dressing. Contact a health care provider if you have new pain, an irritation, or a rash, or if the alarm goesoff and you do not know what to do. Get help right away if you have a lot of bleeding, your wound breaks open, or you have severe pain.Also, get help if you have signs of infection. This information is not intended to replace advice given to you by your health care provider. Make sure you discuss any questions you have with your health care provider. Document Released: 08/24/2012 Document Revised: 09/24/2019 Document Reviewed: 08/20/2019 [employer] Patient Education 2020 [employer]. 07/18/2022 11:39:25 Nausea and Vomiting, Adult Nausea and Vomiting, Adult Nausea is the feeling that you have an upset stomach or that you are about to vomit. Vomiting is when stomach contents are thrown up and out of the mouth as a result of nausea. Vomiting can make you feel weak and cause you to become dehydrated. Dehydration can make you feel tired and thirsty, cause you to have a dry mouth, and decrease how often you urinate. Older adults and people with other diseases or a weak disease-fighting system (immune system) are at higher risk for dehydration. It is important to treat your nausea and vomiting as told by your health care provider. Follow these instructions at home: Watch your symptoms for any changes. Tell your health care provider about them. Follow these instructions to care for yourself at home. Eating and drinking Take an oral rehydration solution (ORS). This is a drink that is sold at pharmacies and retail stores. Drink clear fluids slowly and in small amounts as you are able. Clear fluids include water, ice chips, low-calorie sports drinks, and fruit juice that has water added (diluted fruit juice). Eat bland, bbmb-bm-[id number] foods in small amounts as you are able. These foods include bananas, applesauce, rice, lean meats, toast, and crackers. Avoid fluids that contain a lot of sugar or caffeine, such as energy drinks, sports drinks, and soda. Avoid alcohol. Avoid spicy or fatty foods. General instructions Take facy-obl-ibhporp and prescription medicines only as told by your health care provider. Drink enough fluid to keep your urine pale yellow. Wash your hands often using soap and water. If soap and water are not available, use hand laborer golf course. Make sure that all people in your household wash their hands well and often. Rest at home while you recover. Watch your condition for any changes. Breathe slowly and deeply when you feel nauseated. Keep all follow-up visits as told by your health care provider. This is important. Contact a health care provider if: Your symptoms get worse. You have new symptoms. You have a fever. You cannot drink fluids without vomiting. Your nausea does not go away after 2 days. You feel light-headed or dizzy. You have a headache. You have muscle cramps. You have a rash. You have pain while urinating. Get help right away if: You have pain in your chest, neck, arm, or jaw. You feel extremely weak or you faint. You have persistent vomiting. You have vomit that is bright red or looks like black coffee grounds. You have bloody or black stools or stools that look like tar. You have a severe headache, a stiff neck, or both. You have severe pain, cramping, or bloating in your abdomen. You have difficulty breathing, or you are breathing very quickly. Your heart is beating very quickly. Your skin feels cold and clammy. You feel confused. You have signs of dehydration, such as: ?Dark urine, very little urine, or no urine. ?Cracked lips. ?Dry mouth. ?Sunken eyes. ?Sleepiness. ?Weakness. These symptoms may represent a serious problem that is an emergency. Do not wait to see if the symptoms will go away. Get medical help right away. Call your local emergency services (911 in the [place] Do not drive yourself to the hospital. Summary Nausea is the feeling that you have an upset stomach or that you are about to vomit. As nausea getsworse, it can lead to vomiting. Vomiting can make you feel weak and cause you to become dehydrated. Follow instructions from your health care provider about eating and drinking to prevent dehydration. Take jerb-iui-qtsesbm and prescription medicines only as told by your health care provider. Contact your health care provider if your symptoms get worse, or you have new symptoms. Keep all follow-up visits as told by your health care provider. This is important. This information is not intended to replace advice given to you by your health care provider. Make sure you discuss any questions you have with your health care provider. Document Released: 06/02/2006 Document Revised: 09/24/2019 Document Reviewed: 11/10/2018 [employer] Patient Education 2020 [employer]. 07/18/2022 11:39:15 Monitored Anesthesia Care, Care After Monitored Anesthesia Care, Care After These instructions provide you with information about caring for yourself after your procedure. Your health care provider may also give you more specific instructions. Your treatment has been plannedaccording to current medical practices, but problems sometimes occur. Call your health care provider if you have any problems or questions after your procedure. What can I expect after the procedure? After your procedure, you may: Feel sleepy for several hours. Feel clumsy and have poor balance for several hours. Feel forgetful about what happened after the procedure. Have poor judgment for several hours. Feel nauseous or vomit. Have a sore throat if you had a breathing tube during the procedure. Follow these instructions at home: For at least 24 hours after the procedure: Have a responsible adult stay with you. It is important to have someone help care for you until youare awake and alert. Rest as needed. Do not: ?Participate in activities in which you could fall or become injured. ?Drive. ?Use heavy machinery. ?Drink alcohol. ?Take sleeping pills or medicines that cause drowsiness. ?Make important decisions or sign legal documents. ?Take care of children on your own. Eating and drinking Follow the diet that is recommended by your health care provider. If you vomit, drink water, juice, or soup when you can drink without vomiting. Make sure you have little or no nausea before eating solid foods. General instructions Take jtxt-hxc-juwawur and prescription medicines only as told by your health care provider. If you have sleep apnea, surgery and certain medicines can increase your risk for breathing problems. Follow instructions from your health care provider about wearing your sleep device: ?Anytime you are sleeping, including during daytime naps. ?While taking prescription pain medicines, sleeping medicines, or medicines that make you drowsy. If you smoke, do not smoke without supervision. Keep all follow-up visits as told by your health care provider. This is important. Contact a health care provider if: You keep feeling nauseous or you keep vomiting. You feel light-headed. You develop a rash. You have a fever. Get help right away if: You have trouble breathing. Summary For several hours after your procedure, you may feel sleepy and have poor judgment. Have a responsible adult stay with you for at least 24 hours or until you are awake and alert. This information is not intended to replace advice given to you by your health care provider. Make sure you discuss any questions you have with your health care provider. Document Released: 09/22/2016 Document Revised: 08/31/2018 Document Reviewed: 09/22/2016 [employer] Patient Education 2020 [employer]. 07/18/2022 11:39:09 Open Hernia Repair, Adult, Care After Open Hernia Repair, Adult, Care After This sheet gives you information about how to care for yourself after your procedure. Your health care provider may also give you more specific instructions. If you have problems or questions, contact your health care provider. What can I expect after the procedure? After the procedure, it is common to have: Mild discomfort. Slight bruising. Minor swelling. Pain in the abdomen. Follow these instructions at home: Incision care Follow instructions from your health care provider about how to take care of your incision area. Make sure you: ?Wash your hands with soap and water before you change your bandage (dressing). If soap and water are not available, use hand laborer golf course. ?Change your dressing as told by your health care provider. ?Leave stitches (sutures), skin glue, or adhesive strips in place. These skin closures may need to stay in place for 2 weeks or longer. If adhesive strip edges start to loosen and curl up, you may trim the loose edges. Do not remove adhesive strips completely unless your health care provider tells you to do that. Check your incision area every day for signs of infection. Check for: ?More redness, swelling, or pain. ?More fluid or blood. ?Warmth. ?Pus or a bad smell. Activity Do not drive or use heavy machinery while taking prescription pain medicine. Do not drive until your health care provider approves. Until your health care provider approves: ?Do not lift anything that is heavier than 10 lb (4.5 kg). ?Do not play contact sports. Return to your normal activities as told by your health care provider. Ask your health care provider what activities are safe. General instructions To prevent or treat constipation while you are taking prescription pain medicine, your health care provider may recommend that you: ?Drink enough fluid to keep your urine clear or pale yellow. ?Take rwog-ucy-ytoannm or prescription medicines. ?Eat foods that are high in fiber, such as fresh fruits and vegetables, whole grains, and beans. ?Limit foods that are high in fat and processed sugars, such as fried and sweet foods. Take knoc-exn-ylpcyvk and prescription medicines only as told by your health care provider. Do not take tub baths or go swimming until your health care provider approves. Keep all follow-up visits as told by your health care provider. This is important. Contact a health care provider if: You develop a rash. You have more redness, swelling, or pain around your incision. You have more fluid or blood coming from your incision. Your incision feels warm to the touch. You have pus or a bad smell coming from your incision. You have a fever or chills. You have blood in your stool (feces). You have not had a bowel movement in 2 3 days. Your pain is not controlled with medicine. Get help right away if: You have chest pain or shortness of breath. You feel light-headed or feel faint. You have severe pain. You vomit and your pain is worse. This information is not intended to replace advice given to you by your health care provider. Make sure you discuss any questions you have with your health care provider. Document Released: 12/20/2005 Document Revised: 05/15/2018 Document Reviewed: 11/13/2016 [employer] Patient Education 2020 [employer]. Follow Up Care 07/02/2022 10:17:34 With:AARON DUQUE MD, Surgery Address: [address] [facility] [place] [address]- [phone] When:07/25/2022 10:00:00 Comments:Follow-up as scheduled [facility] 02-02-2023 Summary of episode note Discharge Instructions Thank you for allowing [facility] to assist you with your healthcare needs. The following is importantdischarge information regarding your hospital visit. Your Care Team AARON DUQUE MD Your Diagnosis Acute post-operative pain What to do next Follow Up Appointments Follow Up with AARON DUQUE MD, Surgery When In 2 weeks Why: Call office to schedule follow up appointment. Where: [address] [facility] [place] [address] [phone] The Following Activity and Diet Have Been Ordered for You Discharge Activity - Ordered -- Sexual [place] Restricted No bending, twisting, crawling or squatt, No shower or tub bath for 2 days; no driving for 5 days, no lifting >15 lbs, 07/18/22 11:48:00 EST Discharge Diet - Ordered -- Follow the post-operative/post-procedure diet instructions provided by your physician's office.,07/18/22 11:48:00 EST The Following Equipment Has Been Ordered for You Discharge Home Equipment Discharge Wound Care - Ordered -- Dressing Type: Dry sterile drsg, Remove dressing in two (2) days. Leave steristrips on until they fall off, 07/18/22 11:48:00 EST Allergies Keflex Keppra (Rash) Tape, Paper (Rash) morphine (Rash) naproxen Medications Please ask your primary doctor or pharmacist before taking any other medication not listed, including over the counter drugs, herbal medications, vitamins and or supplements as they may interact withyour home medications. What How Much When Why Instructions Last Dose New acetaminophen-hydrocodone (Tynan 325- 5 mg oral tablet) 1 tab(s) by mouth Every 4 hours as needed for Pain, scale 4-6 Acute post-operative pain Duration: 7 Days Pickup at [facility]/pharmacy #[id number] Unchanged carBAMazepine (TEGretol 200 mg oral tablet) 3 tab(s) by mouth Two (2) times a day Seizure Post-operative state s/p umbilical hernia repair, possible seizure following surgery Pharmacy Information [facility]/pharmacy #[id number]: [address], [place] [phone] Please take this list to your next doctor s visit. Bring all medications you take, including over the counter medications, herbals and other supplements with you to your doctor s visit. Patients and families are reminded to discard old lists and to update any records with all medication providers or retail pharmacies. Education Materials Form - Incentive Spirometer Record Use your incentive spirometer as told by your health care provider. Your health care provider or respiratory therapist will help you set a goal. You are required to breathe in slowly and deeply. As you breathe in, the spirometer column will move up slowly and evenly toward your goal. Try to reach the goal marker set on the spirometer. Use this form to write down your progress. Bring this form with you to your follow-up visits. My incentive spirometer goal is to reach . Date Time Amount reached Date Time Amount reached Date Time Amount reached Date Time Amount reached Date Time Amount reached Date Time Amount reached Date Time Amount reached Date Time Amount reached Date Time Amount reached Date Time Amount reached Date Time Amount reached Date Time Amount reached Date Time Amount reached Date Time Amount reached Date Time Amount reached Date Time Amount reached Date Time Amount reached Date Time Amount reached Date Time Amount reached Date Time Amount reached Date Time Amount reached Date Time Amount reached Date Time Amount reached Date Time Amount reached Date Time Amount reached Date Time Amount reached Date Time Amount reached Date Time Amount reached Date Time Amount reached Date Time Amount reached Date Time Amount reached Date Time Amount reached Date Time Amount reached Date Time Amount reached Date Time Amount reached Date Time Amount reached Date Time Amount reached Date Time Amount reached Date Time Amount reached Date Time Amount reached Date Time Amount reached Date Time Amount reached Date Time Amount reached Date Time Amount reached Date Time Amount reached Date Time Amount reached Date Time Amount reached Date Time Amount reached Date Time Amount reached This information is not intended to replace advice given to you by your health care provider. Make sure you discuss any questions you have with your health care provider. Document Released: 06/21/2019 Document Revised: 06/21/2019 Document Reviewed: 06/21/2019 Elsevier Patient Education 2020 [employer] How To Use an Incentive Spirometer An incentive spirometer is a tool that measures how well you are filling your lungs with each breath. Learning to take long, deep breaths using this tool can help you keep your lungs clear and active. This may help to reverse or lessen your chance of developing breathing (pulmonary) problems, especially infection. You may be asked to use a spirometer: After a surgery. If you have a lung problem or a history of smoking. After a long period of time when you have been unable to move or be active. If the spirometer includes an indicator to show the highest number that you have reached, your health care provider or respiratory therapist will help you set a goal. Keep a list (log) of your progress as told by your health care provider. What are the risks? Breathing too quickly may cause dizziness or cause you to pass out. Take your time so you do not get dizzy or light-headed. If you are in pain, you may need to take pain medicine before doing incentive spirometry. It is harder to take a deep breath if you are having pain. How to use your incentive spirometer 1. Sit up on the edge of your bed or on a chair. 2. Hold the incentive spirometer so that it is in an upright position. 3. Before you use the spirometer, breathe out normally. 4. Place the mouthpiece in your mouth. Make sure your lips are closed tightly around it. 5. Breathe in slowly and as deeply as you can through your mouth, causing the piston or the ball to rise toward the top of the chamber. 6. Hold your breath for 3 5 seconds, or for as long as possible. If the spirometer includes a women's basketball coach indicator, use this to guide you in breathing. Slow down your breathing if the indicator goes above the marked areas. 7. Remove the mouthpiece from your mouth and breathe out normally. The piston or ball will return to the bottom of the chamber. 8. Rest for a few seconds, then repeat the steps 10 or more times. Take your time and take a few normal breaths between deep breaths so that you do not get dizzy or light-headed. Do this every 1 2 hours when you are awake. 9. If the spirometer includes a goal marker to show the highest number you have reached (best effort),use this as a goal to work toward during each repetition. 10. After each set of 10 deep breaths, cough a few times. This will help to make sure that your lungs are clear. If you have an incision on your chest or abdomen from surgery, place a pillow or a rolled-up towel firmly against the incision when you cough. This can help to reduce pain from coughing. General tips When you become able to get out of bed, walk around often and continue to cough to help clear your lungs. Keep using the incentive spirometer until your health care provider says it is okay to stop using it. If you have been in the hospital, you may be told to keep using the spirometer at home. Contact a health care provider if: You are having difficulty using the spirometer. You have trouble using the spirometer as often as instructed. Your pain medicine is not giving enough relief for you to use the spirometer as told. You have a fever. You develop shortness of breath. Get help right away if: You develop a cough with bloody mucus from the lungs (bloody sputum). You have fluid or blood coming from an incision site after you cough. Summary An incentive spirometer is a tool that can help you learn to take long, deep breaths to keep your lungs clear and active. You may be asked to use a spirometer after a surgery, if you have a lung problem or a history of smoking, or if you have been inactive for a long period of time. Use your incentive spirometer as instructed every 1 2 hours while you are awake. If you have an incision on your chest or abdomen, place a pillow or a rolled-up towel firmly against your incision when you cough. This will help to reduce pain. This information is not intended to replace advice given to you by your health care provider. Make sure you discuss any questions you have with your health care provider. Document Released: 10/13/2007 Document Revised: 06/25/2018 Document Reviewed: 04/15/2018 [employer] Patient Education 2020 [employer]. Surgical Drain Home Care Surgical drains are used to remove extra fluid that normally builds up in a surgical wound after surgery. A surgical drain helps to heal a surgical wound. Different kinds of surgical drains include: Active drains. These drains use suction to pull drainage away from the surgical wound. Drainage flows through a tube to a container outside of the body. With these drains, you need to keep the bulb or the drainage container flat (compressed) at all times, except while you empty it. Flattening the bulb or container creates suction. Passive drains. These drains allow fluid to drain naturally, by gravity. Drainage flows through a tube to a bandage (dressing) or a container outside of the body. Passive drains do not need to be emptied. A drain is placed during surgery. Right after surgery, drainage is usually bright red and a little thicker than water. The drainage may gradually turn yellow or pink and become thinner. It is likely that your health care provider will remove the drain when the drainage stops or when the amount decreases to 1 2 Tbsp (15 30 mL) during a 24-hour period. Supplies needed: Tape. Germ-free cleaning solution (sterile saline). Cotton swabs. Split gauze drain sponge: 4 x 4 inches (10 x 10 cm). Gauze square: 4 x 4 inches (10 x 10 cm). How to care for your surgical drain Care for your drain as told by your health care provider. This is important to help prevent infection. If your drain is placed at your back, or any other qqzd-dn-hvcxp area, ask another person to assist you in performing the following tasks: General care Keep the skin around the drain dry and covered with a dressing at all times. Check your drain area every day for signs of infection. Check for: ? Redness, swelling, or pain. ? Pus or a bad smell. ? Cloudy drainage. ? Tenderness or pressure at the drain exit site. Changing the dressing Follow instructions from your health care provider about how to change your dressing. Change your dressing at least once a day. Change it more often if needed to keep the dressing dry. Make sure you: 1. Gather your supplies. 2. Wash your hands with soap and water before you change your dressing. If soap and water are not available, use hand laborer golf course. 3. Remove the old dressing. Avoid using scissors to do that. 4. Wash your hands with soap and water again after removing the old dressing. 5. Use sterile saline to clean your skin around the drain. You may need to use a cotton swab to clean the skin. 6. Place the tube through the slit in a drain sponge. Place the drain sponge so that it covers your wound. 7. Place the gauze square or another drain sponge on top of the drain sponge that is on the wound. Make sure the tube is between those layers. 8. Tape the dressing to your skin. 9. Tape the drainage tube to your skin 1 2 inches (2.5 5 cm) below the place where the tube enters your body. Taping keeps the tube from pulling on any stitches (sutures) that you have. 10. Wash your hands with soap and water. 11. Write down the color of your drainage and how often you change your dressing. How to empty your active drain 1. Make sure that you have a measuring cup that you can empty your drainage into. 2. Wash your hands with soap and water. If soap and water are not available, use hand laborer golf course. 3. Loosen any pins or clips that hold the tube in place. 4. If your health care provider tells you to strip the tube to prevent clots and tube blockages: Hold the tube at the skin with one hand. Use your other hand to pinch the tubing with your thumb and first finger. Gently move your fingers down the tube while squeezing very lightly. This clears any drainage, clots, or tissue from the tube. You may need to do this several times each day to keep the tube clear. Do not pull on the tube. 5. Open the bulb cap or the drain plug. Do not touch the inside of the cap or the bottom of the plug. 6. Turn the device upside down and gently squeeze. 7. Empty all of the drainage into the measuring cup. 8. Compress the bulb or the container and replace the cap or the plug. To compress the bulb or the container, squeeze it firmly in the middle while you close the cap or plug the container. 9. Write down the amount of drainage that you have in each 24-hour period. If you have less than 2 Tbsp (30 mL) of drainage during 24 hours, contact your health care provider. 10. Flush the drainage down the toilet. 11. Wash your hands with soap and water. Contact a health care provider if: You have redness, swelling, or pain around your drain area. You have pus or a bad smell coming from your drain area. You have a fever or chills. The skin around your drain is warm to the touch. The amount of drainage that you have is increasing instead of decreasing. You have drainage that is cloudy. There is a sudden stop or a sudden decrease in the amount of drainage that you have. Your drain tube falls out. Your active drain does not stay compressed after you empty it. Summary Surgical drains are used to remove extra fluid that normally builds up in a surgical wound after surgery. Different kinds of surgical drains include active drains and passive drains. Active drains use suction to pull drainage away from the surgical wound, and passive drains allow fluid to drain naturally. It is important to care for your drain to prevent infection. If your drain is placed at your back, or any other jcbx-dv-lbnzo area, ask another person to assist you. Contact your health care provider if you have redness, swelling, or pain around your drain area. This information is not intended to replace advice given to you by your health care provider. Make sure you discuss any questions you have with your health care provider. Document Released: 05/30/2001 Document Revised: 07/07/2019 Document Reviewed: 07/07/2019 Elsevier Patient Education 2019 [employer]. Ryan Pantoja Drain Patient Education After surgery, you may notice a bulb-like drain, called a Ryan-Pantoja (ABDOULAYE) connected to tubing coming from your incision. This drain suctions and collects fluid from your incisional area. It also promotes healing and reduces the chance of infection You may have the drain for several days after surgery. While you are hospitalized, your nurse will take care of it. If you go home with the drain in place, you will need to care for it yourself. The process is easy to learn. Your nurse will show you how. How to empty the ABDOULAYE drain 1. Empty the drainage bottle as needed (usually 3 times/day), when it is half full, or as often as directed. 2. Obtain a measuring cup to collect the fluid. 3. Wash your hands thoroughly with soap and water. 4. Unpin the bottle from your dressing or shirt. 5. Remove the rubber stopper from the bottle. 6. Turn the bottle upside-down and squeeze the contents into the measuring cup. Completely empty the bottle. Note: To prevent infection, don t let the rubber stopper or top of the bottle touch the measuring cup or anything else. 7. Clean the plug with an alcohol swab or cotton ball dipped in rubbing alcohol. 8. Use one hand to squeeze all of the air from the bottle. 9. With the bottle still compressed, use your other hand to replace the rubber stopper. Do this to make sure the drain suction works well. The bottle should stay flat until it starts to fill with fluid again. 10. Pin the bottle back on your dressing or shirt to avoid pulling it out accidently. 11. Flush the fluid down the toilet. 12. Wash your hands again. Write down the time, amount and color of the drainage. Always remember to wash your hands before and after the procedure to reduce the risk of infecting the incisional area What should I do if the tubing becomes clogged? Hold the tubing between your thumb and first finger at the place closest to your skin. This hand will prevent the tube from being pulled out of your skin. Use your other thumb and first finger to slide the clog down the tubing toward the bulb. You may have to repeat the sliding until the tubing is unclogged. When should I seek immediate care? Your ABDOULAYE drain breaks or comes out When should I contact my healthcare provider? You think your ABDOULAYE drain is blocked You have brown drainage from your ABDOULAYE drain site, or the drainage smells bad You have a fever higher than 101 F (38.6 C) You have increased pain, redness or swelling around the drain site You have questions about your ABDOULAYE drain care DRAINAGE RECORD Date Time Amount Document Released: 06/02/2006 Document Revised: 05/19/2013 Document Reviewed: 06/03/2014 [employer] Patient Information 2015 [employer]. This information is not intended to replace advicegiven to you by your health care provider. Make sure you discuss any questions you have with your health care provider. Negative Pressure Wound Therapy Home Guide Negative pressure wound therapy (NPWT) uses a sponge or foam-like material (dressing) placed on or inside the wound. The wound is then covered and sealed with a cover dressing that sticks to your skin (is adhesive). This keeps air out. A tube is attached to the cover dressing, and this tube connects to a small pump. The pump sucks fluid and germs from the wound. NPWT helps to increase blood flow to the wound and heal it from the inside. What are the risks? NPWT is usually safe to use. However, problems can occur, including: Skin irritation from the dressing adhesive. Bleeding. Infection. Dehydration. Wounds with large amounts of drainage can cause excessive fluid loss. Pain. Supplies needed: A disposable garbage bag. Soap and water, or hand laborer golf course. Wound cleanser or salt-water solution (saline). New sponge and cover dressing. Protective clothing. Gauze pad. Vinyl gloves. Tape. Skin protectant. This may be a wipe, film, or spray. Clean or germ-free (sterile) scissors. Eye protection. How to change your dressing Prepare to change your dressing 1. If told by your health care provider, take pain medicine 30 minutes before changing the dressing. 2. Wash your hands with soap and water. Dry your hands with a clean towel. If soap and water are not available, use hand laborer golf course. 3. Set up a clean station for wound care. 4. Open the dressing package so that the sponge dressing remains on the inside of the package. 5. Wear gloves, protective clothing, and eye protection. Remove old dressing 1. Turn off the pump and disconnect the tubing from the dressing. 2. Carefully remove the adhesive cover dressing in the direction of your hair growth. 3. Remove the sponge dressing that is inside the wound. If the sponge sticks, use a wound cleanser or saline solution to wet the sponge and help it come off more easily. 4. Throw the old sponge and cover dressing supplies into the garbage bag. 5. Remove your gloves by grabbing the cuff and turning the glove inside out. Place the gloves in the trash immediately. 6. Wash your hands with soap and water. Dry your hands with a clean towel. If soap and water are not available, use hand laborer golf course. Clean your wound Wear gloves, protective clothing, and eye protection. Follow your health care provider's instructions on how to clean your wound. You may be told to: 1. Clean the wound using a saline solution or a wound cleanser and a clean gauze pad. 2. Pat the wound dry with a gauze pad. Do not rub the wound. 3. Throw the gauze pad into the garbage bag. 4. Remove your gloves by grabbing the cuff and turning the glove inside out. Place the gloves in the trash immediately. 5. Wash your hands with soap and water. Dry your hands with a clean towel. If soap and water are not available, use hand laborer golf course. Apply new dressing Wear gloves, protective clothing, and eye protection. 1. If told by your health care provider, apply a skin protectant to any skin that will be exposed to adhesive. Let the skin protectant dry. 2. Cut a piece of new sponge dressing and put it on or in the wound. 3. Using clean scissors, cut a nickel-sized hole in the new cover dressing. 4. Apply the cover dressing. 5. Attach the suction tube over the hole in the cover dressing. 6. Take off your gloves. Put them in the plastic bag with the old dressing. Tie the bag shut and throwit away. 7. Wash your hands with soap and water. Dry your hands with a clean towel. If soap and water are not available, use hand laborer golf course. 8. Turn the pump back on. The sponge dressing should collapse. Do not change the settings on the machine without talking to a health care provider. 9. Replace the container in the pump that collects fluid if it is full. Replace the container per the carpenter inspector's instructions or at least once a week, even if it is not full. General tips and recommendations If the alarm sounds: Stay calm. Do not turn off the pump or do anything with the dressing. Reasons the alarm may go off: ? The battery is low. Change the battery or plug the device into electrical power. ? The dressing has a leak. Find the leak and put tape over the leak. ? The fluid collection container is full. Change the fluid container. Call your health care provider right away if you cannot fix the problem. Explain to your health care provider what is happening. Follow his or her instructions. General instructions Do not turn off the pump unless told to do so by your health care provider. Do not turn off the pump for more than 2 hours. If the pump is off for more than 2 hours, the dressing will need to be changed. If your health care provider says it is okay to shower: ? Do not take the pump into the shower. ? Make sure the wound dressing is protected and sealed. The wound dressing must stay dry. Check frequently that the machine indicates that therapy is on and that all clamps are open. Do not use susj-hch-nnauzwb medicated or antiseptic creams, sprays, liquids, or dressings unless your health care provider approves. Contact a health care provider if: You have new pain. You develop irritation, a rash, or itching around the wound or dressing. You see new black or yellow tissue in your wound. The dressing changes are painful or cause bleeding. The pump has been off for more than 2 hours, and you do not know how to change the dressing. The pump alarm goes off, and you do not know what to do. Get help right away if: You have a lot of bleeding. The wound breaks open. You have severe pain. You have signs of infection, such as: ? More redness, swelling, or pain. ? More fluid or blood. ? Warmth. ? Pus or a bad smell. ? Red streaks leading from the wound. ? A fever. You see a sudden change in the color or texture of the drainage. You have signs of dehydration, such as: ? Little or no tears, urine, or sweat. ? Muscle cramps. ? Very dry mouth. ? Headache. ? Dizziness. Summary Negative pressure wound therapy (NPWT) is a device that helps your wound heal. Set up a clean station for wound care. Your health care provider will tell you what supplies to use. Follow your health care provider's instructions on how to clean your wound and how to change the dressing. Contact a health care provider if you have new pain, an irritation, or a rash, or if the alarm goesoff and you do not know what to do. Get help right away if you have a lot of bleeding, your wound breaks open, or you have severe pain.Also, get help if you have signs of infection. This information is not intended to replace advice given to you by your health care provider. Make sure you discuss any questions you have with your health care provider. Document Released: 08/24/2012 Document Revised: 09/24/2019 Document Reviewed: 08/20/2019 [employer] Patient Education 2020 [employer]. Nausea and Vomiting, Adult Nausea is the feeling that you have an upset stomach or that you are about to vomit. Vomiting is when stomach contents are thrown up and out of the mouth as a result of nausea. Vomiting can make you feel weak and cause you to become dehydrated. Dehydration can make you feel tired and thirsty, cause you to have a dry mouth, and decrease how often you urinate. Older adults and people with other diseases or a weak disease-fighting system (immune system) are at higher risk for dehydration. It is important to treat your nausea and vomiting as told by your health care provider. Follow these instructions at home: Watch your symptoms for any changes. Tell your health care provider about them. Follow these instructions to care for yourself at home. Eating and drinking Take an oral rehydration solution (ORS). This is a drink that is sold at pharmacies and retail stores. Drink clear fluids slowly and in small amounts as you are able. Clear fluids include water, ice chips, low-calorie sports drinks, and fruit juice that has water added (diluted fruit juice). Eat bland, rjcz-ui-symwvk foods in small amounts as you are able. These foods include bananas, applesauce, rice, lean meats, toast, and crackers. Avoid fluids that contain a lot of sugar or caffeine, such as energy drinks, sports drinks, and soda. Avoid alcohol. Avoid spicy or fatty foods. General instructions Take vvgj-rxo-gstucrd and prescription medicines only as told by your health care provider. Drink enough fluid to keep your urine pale yellow. Wash your hands often using soap and water. If soap and water are not available, use hand laborer golf course. Make sure that all people in your household wash their hands well and often. Rest at home while you recover. Watch your condition for any changes. Breathe slowly and deeply when you feel nauseated. Keep all follow-up visits as told by your health care provider. This is important. Contact a health care provider if: Your symptoms get worse. You have new symptoms. You have a fever. You cannot drink fluids without vomiting. Your nausea does not go away after 2 days. You feel light-headed or dizzy. You have a headache. You have muscle cramps. You have a rash. You have pain while urinating. Get help right away if: You have pain in your chest, neck, arm, or jaw. You feel extremely weak or you faint. You have persistent vomiting. You have vomit that is bright red or looks like black coffee grounds. You have bloody or black stools or stools that look like tar. You have a severe headache, a stiff neck, or both. You have severe pain, cramping, or bloating in your abdomen. You have difficulty breathing, or you are breathing very quickly. Your heart is beating very quickly. Your skin feels cold and clammy. You feel confused. You have signs of dehydration, such as: ? Dark urine, very little urine, or no urine. ? Cracked lips. ? Dry mouth. ? Sunken eyes. ? Sleepiness. ? Weakness. These symptoms may represent a serious problem that is an emergency. Do not wait to see if the symptoms will go away. Get medical help right away. Call your local emergency services (911 in the [place] Do not drive yourself to the hospital. Summary Nausea is the feeling that you have an upset stomach or that you are about to vomit. As nausea getsworse, it can lead to vomiting. Vomiting can make you feel weak and cause you to become dehydrated. Follow instructions from your health care provider about eating and drinking to prevent dehydration. Take sipb-jna-miusmog and prescription medicines only as told by your health care provider. Contact your health care provider if your symptoms get worse, or you have new symptoms. Keep all follow-up visits as told by your health care provider. This is important. This information is not intended to replace advice given to you by your health care provider. Make sure you discuss any questions you have with your health care provider. Document Released: 06/02/2006 Document Revised: 09/24/2019 Document Reviewed: 11/10/2018 [employer] Patient Education 2020 [employer]. Monitored Anesthesia Care, Care After These instructions provide you with information about caring for yourself after your procedure. Your health care provider may also give you more specific instructions. Your treatment has been plannedaccording to current medical practices, but problems sometimes occur. Call your health care provider if you have any problems or questions after your procedure. What can I expect after the procedure? After your procedure, you may: Feel sleepy for several hours. Feel clumsy and have poor balance for several hours. Feel forgetful about what happened after the procedure. Have poor judgment for several hours. Feel nauseous or vomit. Have a sore throat if you had a breathing tube during the procedure. Follow these instructions at home: For at least 24 hours after the procedure: Have a responsible adult stay with you. It is important to have someone help care for you until youare awake and alert. Rest as needed. Do not: ? Participate in activities in which you could fall or become injured. ? Drive. ? Use heavy machinery. ? Drink alcohol. ? Take sleeping pills or medicines that cause drowsiness. ? Make important decisions or sign legal documents. ? Take care of children on your own. Eating and drinking Follow the diet that is recommended by your health care provider. If you vomit, drink water, juice, or soup when you can drink without vomiting. Make sure you have little or no nausea before eating solid foods. General instructions Take xpnx-fkt-cnlwckd and prescription medicines only as told by your health care provider. If you have sleep apnea, surgery and certain medicines can increase your risk for breathing problems. Follow instructions from your health care provider about wearing your sleep device: ? Anytime you are sleeping, including during daytime naps. ? While taking prescription pain medicines, sleeping medicines, or medicines that make you drowsy. If you smoke, do not smoke without supervision. Keep all follow-up visits as told by your health care provider. This is important. Contact a health care provider if: You keep feeling nauseous or you keep vomiting. You feel light-headed. You develop a rash. You have a fever. Get help right away if: You have trouble breathing. Summary For several hours after your procedure, you may feel sleepy and have poor judgment. Have a responsible adult stay with you for at least 24 hours or until you are awake and alert. This information is not intended to replace advice given to you by your health care provider. Make sure you discuss any questions you have with your health care provider. Document Released: 09/22/2016 Document Revised: 08/31/2018 Document Reviewed: 09/22/2016 [employer] Patient Education 2020 [employer]. Open Hernia Repair, Adult, Care After This sheet gives you information about how to care for yourself after your procedure. Your health care provider may also give you more specific instructions. If you have problems or questions, contact your health care provider. What can I expect after the procedure? After the procedure, it is common to have: Mild discomfort. Slight bruising. Minor swelling. Pain in the abdomen. Follow these instructions at home: Incision care Follow instructions from your health care provider about how to take care of your incision area. Make sure you: ? Wash your hands with soap and water before you change your bandage (dressing). If soap and water are not available, use hand laborer golf course. ? Change your dressing as told by your health care provider. ? Leave stitches (sutures), skin glue, or adhesive strips in place. These skin closures may need to stay in place for 2 weeks or longer. If adhesive strip edges start to loosen and curl up, you may trim the loose edges. Do not remove adhesive strips completely unless your health care provider tells you to do that. Check your incision area every day for signs of infection. Check for: ? More redness, swelling, or pain. ? More fluid or blood. ? Warmth. ? Pus or a bad smell. Activity Do not drive or use heavy machinery while taking prescription pain medicine. Do not drive until your health care provider approves. Until your health care provider approves: ? Do not lift anything that is heavier than 10 lb (4.5 kg). ? Do not play contact sports. Return to your normal activities as told by your health care provider. Ask your health care provider what activities are safe. General instructions To prevent or treat constipation while you are taking prescription pain medicine, your health care provider may recommend that you: ? Drink enough fluid to keep your urine clear or pale yellow. ? Take wuht-uyb-vtefbpw or prescription medicines. ? Eat foods that are high in fiber, such as fresh fruits and vegetables, whole grains, and beans. ? Limit foods that are high in fat and processed sugars, such as fried and sweet foods. Take qsxo-nui-erigkby and prescription medicines only as told by your health care provider. Do not take tub baths or go swimming until your health care provider approves. Keep all follow-up visits as told by your health care provider. This is important. Contact a health care provider if: You develop a rash. You have more redness, swelling, or pain around your incision. You have more fluid or blood coming from your incision. Your incision feels warm to the touch. You have pus or a bad smell coming from your incision. You have a fever or chills. You have blood in your stool (feces). You have not had a bowel movement in 2 3 days. Your pain is not controlled with medicine. Get help right away if: You have chest pain or shortness of breath. You feel light-headed or feel faint. You have severe pain. You vomit and your pain is worse. This information is not intended to replace advice given to you by your health care provider. Make sure you discuss any questions you have with your health care provider. Document Released: 12/20/2005 Document Revised: 05/15/2018 Document Reviewed: 11/13/2016 [employer] Patient Education 2020 [employer]. Additional Information VACCINATE! IT SAVES LIVES! Members of the community who have not yet received the COVID-19 vaccine and would like to receive it can visit one of [facility] vaccine clinics. There are many vaccine clinic locations within the [facility]. For locations and available times, please visit [email or web address] It is important to note that some COVID mobile vaccine clinics are held outdoors and may be canceled in rainy or stormy conditions. To learn more about pediatric vaccinations (ages 5-11), we invite you to visit the [employer]. [email or web address]/[email or web address]-[email or web address] stions.htmlTo learn more about the COVID-19 vaccine, we invite you to visit the [facility] website for a list of frequently asked questions. [email or web address] [facility] Patient Portal Access Instructions: Stay connected with your healthcare team and access your personal medical information anytime with the [facility] [employer] Patient Portal.If you would like a full copy of your medical records, please contact the [facility] Medical Records Department, Friday through Friday between 8a.m. and 4:30p.m. Please follow the directions below to access the portal: 1.Access the email account you provided upon registration to the [facility].2.Look for an invitation email from [facility].3.Open the email and access the invitation link: Accept Invitation to [employer]4.Fill in the required [place] to create your account. Sign into [email or web address] with your username and password that you created in the above steps to stay up to date. You can then view a summary of results, a summary of your visits, and the ability to download your summaries to your computer or send the information securely to a physician. Remember that your healthcare information is confidential, so carefully consider who you will allow to register on the [employer] Patient Portal for access to your information. You can also access the [employer] Patient Portal on the [employer] yen. Simply click on Health Records under [employer] and then click on the [facility] logo. HOW TO SAFELY DISPOSE OF PRESCRIPTION MEDICATIONS Please use one of the following methods to safely dispose of your unused medications. 1.Use a drug disposal kit: the drug disposal pouch allows you to safely discard your old and unuseddrugs. Ask your nurse to give you one when you are dischar (more content not included)... [facility] [id number] Anesthesiology Consult note Patient: PATRICK KOROMA Age: 42 years Sex: Male : 1980 Associated Diagnoses: None Author: SOFÍA OROZCO APRN-FARM LOAN INSPECTOR Preoperative Information Time of last food or liquid consumption: 07/18/2022 00:00:00 Anesthesia history Patient's history: negative. Family's history: negative. Review of Systems Ear/Nose/Mouth/Throat: Negative. Respiratory: Cough, Sleep apnea, smoker. Cardiovascular: Negative. Gastrointestinal: Reflux, MO. Genitourinary: Negative. Endocrine: Negative. Musculoskeletal: Negative. Integumentary: Negative. Neurologic: hx TIA, seizures. Health Status Allergies: Allergic Reactions (Selected) Severity Not Documented Keflex- No reactions were documented. Keppra- Rash. Morphine- Rash. Naproxen- No reactions were documented. Nonallergic Reactions (Selected) Severity Not Documented Tape, Paper- Rash., Allergies (5) ActiveReaction KeflexNone Documented KeppraRash morphineRash naproxenNone Documented Tape, PaperRash Current medications: (Selected) Inpatient Medications Ordered Caldolor: 800 mg, 8 mL, 500 mL/hr, IV Piggyback, q6h, PRN: Pain, scale 4-6 Dilaudid ( PACU ): 0.2 mg, IV Push, q5min, PRN: Pain, scale 4-6 LR 1000 mL: 20 mL/hr, Intravenous LR 1000 mL: 20 mL/hr, Intravenous Zofran ( PACU ): 4 mg, 2 mL, IV Push, AsDirected, PRN: Nausea/Vomiting Prescriptions Prescribed TEGretol 200 mg oral tablet: 600 mg, 3 tab(s), Oral, BID, 180 tab(s), 1 Refill(s), Medications (5) Active Scheduled: (0) Continuous: (2) Lactated Ringers Infusion 1000 mL 1,000 mL, Intravenous, 20 mL/hr Lactated Ringers Infusion 1000 mL 1,000 mL, Intravenous, 20 mL/hr PRN: (3) HYDROmorphone 0.2 mg, IV Push, q5min ibuprofen 800 mg 8 mL, IV Piggyback, q6h ondansetron 2 mg/ 1 mL 2 mL INJ 4 mg 2 mL, IV Push, AsDirected Problem list: Medical Acid reflux / SNOMED CT 729849447 / Confirmed 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 / SNOMED CT [id number] / Confirmed Fall / SNOMED CT 2955572 / Confirmed Electric shock / SNOMED CT 3656444636 / Confirmed Full dentures / SNOMED CT 734206320 / Confirmed Postprocedural hematoma of skin and subcutaneous tissue following other procedure / SNOMED CT 631535633 / Confirmed Seizure / SNOMED CT 584787860 / Confirmed TIA / SNOMED CT 227281361 / Confirmed Umbilical hernia / SNOMED CT 5312185924 / Confirmed, Active Problems (10) Acid reflux 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 Electric shock Fall Full dentures Postprocedural hematoma of skin and subcutaneous tissue following other procedure Seizure TIA Tobacco use Umbilical hernia Histories Past Medical History: Active TIA (093330045) Acid reflux (027233499) Seizure ([id number]) Family History: Congenital heart disease Brother Stroke Mother Father Procedure history: Repair of recurrent ventral hernia ([id number]) on 11/22/2021 at 41 Years. History of repair of umbilical hernia ([id number]) in 2019 at 39 Years. Appendectomy ([id number]). 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 Physical Examination Vital Signs 07/18/2022 8:50 EST Heart Rate Monitored 94 bpm bpm Respiratory Rate - Anes 12 br/min br/min Systolic Blood Pressure Non-Invasive 122 mmHg mmHg Diastolic Blood Pressure Non-Invasive 68 mmHg mmHg 07/18/2022 8:45 EST Heart Rate Monitored 89 bpm bpm Respiratory Rate - Anes 12 br/min br/min Systolic Blood Pressure Non-Invasive 121 mmHg mmHg Diastolic Blood Pressure Non-Invasive 74 mmHg mmHg 07/18/2022 8:40 EST Heart Rate Monitored 93 bpm bpm Respiratory Rate - Anes 12 br/min br/min Systolic Blood Pressure Non-Invasive 123 mmHg mmHg Diastolic Blood Pressure Non-Invasive 69 mmHg mmHg 07/18/2022 8:35 EST Heart Rate Monitored 94 bpm bpm Respiratory Rate - Anes 12 br/min br/min Systolic Blood Pressure Non-Invasive 130 mmHg mmHg Diastolic Blood Pressure Non-Invasive 73 mmHg mmHg 07/18/2022 8:30 EST Heart Rate Monitored 108 bpm bpm Respiratory Rate - Anes 12 br/min br/min Systolic Blood Pressure Non-Invasive 138 mmHg mmHg Diastolic Blood Pressure Non-Invasive 80 mmHg mmHg 07/18/2022 8:25 EST Heart Rate Monitored 118 bpm bpm Respiratory Rate - Anes 16 br/min br/min Systolic Blood Pressure Non-Invasive 151 mmHg mmHg Diastolic Blood Pressure Non-Invasive 98 mmHg mmHg 07/18/2022 8:20 EST Respiratory Rate - Anes 0 br/min br/min Systolic Blood Pressure Non-Invasive 135 mmHg mmHg Diastolic Blood Pressure Non-Invasive 89 mmHg mmHg 07/18/2022 6:48 EST Temperature Temporal Artery 37.2 DegC Apical Heart Rate 99 bpm Respiratory Rate 18 br/min Systolic Blood Pressure Non-Invasive 142 mmHg HI Diastolic Blood Pressure Non-Invasive 88 mmHg Vital Signs(last 24 hrs) Last Charted Heart Rate [id number] bpm (JUL 18 08:50) Resp Rate 18 br/min (JUL 18 06:48) TCW697 mmHg (JUL 18 08:50) DBP68 mmHg (JUL 18 08:50) Measurements from flowsheet : Measurements 07/18/2022 6:48 EST Height 188 cm Admission Weight 134 kg Stanton Body Weight 82.24 kg Admission Body Mass Index 37.91 m2 Pain assessment: Pain Assessment 07/18/2022 7:30 EST Primary Pain Intensity Not Done: Other (Not Done) 07/18/2022 6:48 EST Primary Pain Intensity 0 Pain Scale Type 0-10 Pain scale . General: Alert and oriented. Airway: Normal temporomandibular joint mobility. Mallampati classification: I (soft palate, fauces, uvula, pillars visible). Head: Normocephalic. Dentition Evaluation: Dentures, lower, Dentures, upper. Neck: Supple. Respiratory: diminished, cough. Cardiovascular: Normal rate. Heart Sounds: Normal. Gastrointestinal: Soft. Musculoskeletal Normal range of motion. Integumentary: Intact. Neurologic: Alert, Oriented. Review / Management Results review: No qualifying data available , Lab results 07/18/2022 8:55 EST clindamycin 900 mg mg 07/18/2022 8:50 EST Heart Rate Monitored 94 bpm bpm Respiratory Rate - Anes 12 br/min br/min Systolic Blood Pressure Non-Invasive 122 mmHg mmHg Diastolic Blood Pressure Non-Invasive 68 mmHg mmHg Oxygen Saturation 100 % % acetaminophen 1,000 mg mg 07/18/2022 8:45 EST Heart Rate Monitored 89 bpm bpm Respiratory Rate - Anes 12 br/min br/min Systolic Blood Pressure Non-Invasive 121 mmHg mmHg Diastolic Blood Pressure Non-Invasive 74 mmHg mmHg Oxygen Saturation 100 % % Set Rate Anes 12 br/min br/min 07/18/2022 8:44 EST SN - CTm - Surgery Start 07/18/2022 8:44 07/18/2022 8:44 EST SN - CTm - Surgery Start Surgery Start 07/18/2022 8:40 EST Heart Rate Monitored 93 bpm bpm Respiratory Rate - Anes 12 br/min br/min Systolic Blood Pressure Non-Invasive 123 mmHg mmHg Diastolic Blood Pressure Non-Invasive 69 mmHg mmHg Oxygen Saturation 99.9 % % dexamethasone 4 mg mg ondansetron 4 mg mg Set Rate Anes 12 br/min br/min 07/18/2022 8:35 EST Heart Rate Monitored 94 bpm bpm Respiratory Rate - Anes 12 br/min br/min Systolic Blood Pressure Non-Invasive 130 mmHg mmHg Diastolic Blood Pressure Non-Invasive 73 mmHg mmHg Oxygen Saturation 99.7 % % acetaminophen Begin Bag 100 mL mg Set Rate Anes 12 br/min br/min 07/18/2022 8:30 EST Heart Rate Monitored 108 bpm bpm Respiratory Rate - Anes 12 br/min br/min Systolic Blood Pressure Non-Invasive 138 mmHg mmHg Diastolic Blood Pressure Non-Invasive 80 mmHg mmHg Oxygen Saturation 100 % % Set Rate Anes 12 br/min br/min 07/18/2022 8:26 EST rocuronium 50 mg mg 07/18/2022 8:25 EST Heart Rate Monitored 118 bpm bpm Respiratory Rate - Anes 16 br/min br/min Systolic Blood Pressure Non-Invasive 151 mmHg mmHg Diastolic Blood Pressure Non-Invasive 98 mmHg mmHg Oxygen Saturation 63.4 % % fentaNYL 100 mcg mcg lidocaine 100 mg mg propofol 200 mg mg 07/18/2022 8:20 EST Respiratory Rate - Anes 0 br/min br/min Systolic Blood Pressure Non-Invasive 135 mmHg mmHg Diastolic Blood Pressure Non-Invasive 89 mmHg mmHg Oxygen Saturation 97.9 % % 07/18/2022 8:17 EST SN - CTm - Anesthesia Start Time Anesthesia Start midazolam 2 mg mg 07/18/2022 8:03 EST SN - Proc - Anesthesia Type General SN - Proc - Actual Procedure OPEN REPAIR OF RECURRENT PERIUMBILICAL HERNIA WITH COMPONENT SEPARATION 07/18/2022 8:03 EST SN - SP - Prep Agents Chloraprep SN - SP - HR - Method N/A 07/18/2022 8:02 EST SN - CO - Medication MARCAINE BUPIVACAINE 0.5% 30ML SN - CO - Route of Administration Local SN - CO - Route of Administration Local SN - CO - By (Single) SN - CO - By (Single) SN - CO - By (Single) SN - CO - By (Single) 07/18/2022 7:57 EST SN - PP - Body Position Supine Standard Intra-op 07/18/2022 7:56 EST SN - PTCare - Anti-thromboembolism Ayla Sequential Compression Device (SCD) 07/18/2022 7:49 EST SN - CAt - Case Attendee SN - CAt - Case Attendee SN - CAt - Case Attendee SN - CAt - Case Attendee SN - CAt - Role Performed FARM LOAN INSPECTOR SN - CAt - Role Performed Product Development Consultant 1 07/18/2022 7:30 EST Primary Pain Intensity Not Done: Other (Not Done) ketorolac Not Done: Other (Not Done) 07/18/2022 7:29 EST SN - Preop - CTm Pt in SDS Room 07/18/2022 6:45 SN - Preop - CTm Pt Ready for OR/Proced 07/18/2022 7:29 07/18/2022 7:25 EST gabapentin 300 mg mg ibuprofen 800 mg mg Dextrose 5% in Water 250 mL mL 07/18/2022 7:13 EST SN - Assess - LOC Alert, Awake SN - Assess - Orientation Oriented X 3 SN - Assess - Post-op Skin Integrity Intact/Dry 07/18/2022 7:13 EST SN - GCD - Post-operative Diagnosis PERIUMBILICAL HERNIA SN - GCD - Case Level Level 2 07/18/2022 7:13 EST SN - CAt - Case Attendee SN - CAt - Case Attendee SN - CAt - Case Attendee SN - CAt - Case Attendee SN - CAt - Case Attendee SN - CAt - Case Attendee SN - CAt - Role Performed Primary Surgeon SN - CAt - Role Performed Custom Van Converter 1 SN - CAt - Role Performed Scrub 1 07/18/2022 7:12 EST Infectious Disease Symptoms Patient states no symptoms Safety Brochure Information Reviewed Unable to complete [facility]neal Video Viewed No Teaching Evaluation Needs practice/supervision Admission Note-Nursing Same Day Patient History (Modified) 07/18/2022 7:10 EST Lactated Ringers Injection Begin Bag 1,000 mL mL 07/18/2022 6:48 EST Height 188 cm Admission Weight 134 kg Stanton Body Weight 82.24 kg Admission Body Mass Index 37.91 m2 Temperature Temporal Artery 37.2 DegC Apical Heart Rate 99 bpm Respiratory Rate 18 br/min Systolic Blood Pressure Non-Invasive 142 mmHg HI Diastolic Blood Pressure Non-Invasive 88 mmHg Primary Pain Intensity 0 Pain Scale Type 0-10 Pain scale Heart Sounds ICU S1S2 Heart Rhythm Regular Oxygen Therapy Room air Oxygen Saturation 97 % Abdomen Description Non-distended, Soft Abdomen Palpation Non-Tender Bowel Sounds All Quadrants Present Urinary Elimination Voiding, no difficulties Skin Temperature Warm Skin Description [place], Dry Skin Integrity Intact Mucous Membrane Color [place] IV Present Present Continuous IV Infusions LR Wrist Right 20 gauge Peripheral IV Activity: Insert new site Peripheral IV Dressing Condition: Clean, Dry, Intact Peripheral IV Dressing Activity: Applied, Transparent dressing Peripheral IV Line Status/Patency: Continuous infusion Peripheral IV Site Condition: No complications Peripheral IV Equipment: Extension set, PRN Adaptor Peripheral IV Number of Attempts: 1 Neurological Symptoms Patient denies Extremity Movement Equal Level of Consciousness Alert Strength All Extremities Strong Affect/Behavior Appropriate, Calm, Cooperative Orientation Oriented x 4 Allergies Yes Labelling Machine Operator On Yes Consent Form Signed Yes Patient Dressed In Hospital gown Pre-op Preparation Jewelry removed CHG Preoperative Wash/Wipe Night before procedure, Day of procedure History & Physical Update On Chart Yes History & Physical On Chart Yes Obstructive Sleep Apnea Assess Completed Yes Belongings At Bedside Cell phone, Shoes, Shorts, Socks, T-shirt, Undergarments Personal Home Medications Received No home medications were brought in Belongings Sent To Security None Assistive Device None SCD On/Re-applied bilateral knee high NPO Status Maintained Standard Safety ID band on, Allergy Band on, Call device within reach, Bed in low position, Wheels locked, Non-Slip footwear Allergy Band on and Verified Yes Blood Band on and Verified No Patient ID Band on and Verified Yes Implants Verified Yes Pacemaker/AICD Verified Yes Anesthesia Consent Signed Yes Blood Consent Signed Yes Last Fluid Intake 07/17/2022 20:00 Last Food Intake 07/17/2022 20:00 Last Void 07/18/2022 7:01 . Assessment and Plan [place] [employer]esthesiologists (ASA) physical status classification: Class III. Anesthetic Preoperative Plan Premedication: intravenous. Anesthetic technique: General. Induction: intravenously. Maintenance airway: Oral endotracheal tube. Postoperative pain management: Per surgeon. Risks discussed: nausea, vomiting, sore throat. Informed consent: signed by patient. Digitally Signed by SOFÍA OROZCO on 07/18/2022 09:03 AM [facility]01-30-2023 Evaluation + Plan note Future Appointments Diagnostic Tests Pending * [facility] [place] out (Blood Specimens) 07/15/22 Future Scheduled Tests Laboratory* Basic Metabolic Panel 11/23/21 * Carbamazepine Level 11/23/21 * Complete Metabolic Panel 11/23/21 [facility] 01-30-2023 Hospital Discharge instructions Patient Education 07/15/2022 01:19:35 Seizure, Recurrent (Adult) Recurrent Seizure (Adult) You have had another seizure today. A common cause of seizures that keep happening (recurrent seizures) is missing doses of seizure medicine. But sometimes seizures are hard to control even when you take the medicine correctly. If this is the case for you, your healthcare provider may need to increase your dosage. Or you may need to add or change to another medicine. Home care Follow these tips when caring for yourself at home. For this seizure: Seizures aren t predictable. So avoid doing anything that might cause danger to you or other peopleif you have another seizure. Until the seizures are under good control, take these precautions: oDon t drive, ride a motorcycle, or ride a bike. oDon t operate dangerous equipment such as power tools oTake showers instead of baths. oDon t swim or climb ladders, trees, or roofs. Tell your close friends and relatives about your seizure. Teach them what to do for you if it happens again. If medicine was prescribed to prevent seizures, take it exactly as directed. It does not work when taken as needed. Missing doses will increase the risk of having another seizure. If you miss a dose, take the missed dose as soon as you remember. If it is almost time for your next dose, skip the missed dose. Restart the medicine at your next scheduled time. Don t take extra medicine to make up the missed dose. Wear a Medic-Alert bracelet to let emergency personnel know about your condition. Follow a regular sleep schedule such that you get at least 6 to 8 hours of restful sleep every night. This is especially important when you are sick with a cold or flu and/or another type of infection. For future seizures, if you are alone: If you feel a seizure coming on, lie down on a bed or on the floor with something soft under your head. Lie on your left side, not on your back. This will keep you from falling. It will also let fluid drain out of your mouth and prevent choking. Be sure you are clear of any objects that might injure you during the seizure. Call for help if there is time. For future seizures, if someone is with you: The person should help you get into a safe position and call for help. The person shouldn t try to force anything in your mouth once the seizure begins. This could harm your teeth or jaw. Follow-up care Follow up with your healthcare provider. Keep a seizure calendar to record how often you have a seizure. If you are being started on anti-seizure medicine, make sure that you use additional control. Seizure medicine can affect how well control pills work, and you could become . Avoid alcohol until your doctor tells you it s OK. Note: For the safety of yourself and others on the road, certain states require that the treating doctor tell the Public Health Department about any adult who is treated for a seizure and is at risk of more seizures. In this case, the Department of Motor Vehicles will be told. A restriction will beput on your driver's license reviewing officer s license until a doctor gives you medical clearance to drive again. Contact your treating doctor to find out if your state requires the reporting of patients with a seizures condition. When to seek medical advice Call your healthcare provider right away if any of these occur: Seizures happen more often or last longer than usual A seizure lasts over 5 minutes You don t wake up between seizures Confusion that lasts more than 30 minutes after a seizure Injury during a seizure Fever over 100.4 F (38.0 C), or as advised Unusual irritability, drowsiness, or confusion Stiff or painful neck Headache that gets worse 5538-[address] [employer] [place] [address]. All rights reserved. This information is not intended as a substitute for professional medical care. Always follow yourhealthcare professional's instructions. Follow Up Care 07/15/2022 00:22:57 With:[facility] Address: When:2-4 days [facility] 01-30-2023 Note Discharge Instructions Thank you for allowing [facility] to assist you with your healthcare needs. The following is importantdischarge information regarding your hospital visit. Diagnosis from Today's Visit Seizure disorder, Seizure Possible Seizure What to Do Next Instructions from Your Care Team No qualifying data available. Post Acute Orders No qualifying data available. You Need to Schedule the Following Appointments Follow Up with [facility] When Within 2-4 days Where: Allergies Keflex Keppra (Rash) Tape, Paper (Rash) morphine (Rash) naproxen Medications Please ask your primary doctor or pharmacist before taking any other medication not listed, including over the counter drugs, herbal medications, vitamins and or supplements as they may interact withyour home medications. What How Much When Why Instructions Last Dose Unchanged carBAMazepine (TEGretol 200 mg oral tablet) 3 tab(s) by mouth Two (2) times a day Seizure Post-operative state s/p umbilical hernia repair, possible seizure following surgery Please take this list to your next doctor s visit. Bring all medications you take, including over the counter medications, herbals and other supplements with you to your doctor s visit. Patients and families are reminded to discard old lists and to update any records with all medication providers or retail pharmacies. Education Materials Recurrent Seizure (Adult) You have had another seizure today. A common cause of seizures that keep happening (recurrent seizures) is missing doses of seizure medicine. But sometimes seizures are hard to control even when you take the medicine correctly. If this is the case for you, your healthcare provider may need to increase your dosage. Or you may need to add or change to another medicine. Home care Follow these tips when caring for yourself at home. For this seizure: Seizures aren t predictable. So avoid doing anything that might cause danger to you or other peopleif you have another seizure. Until the seizures are under good control, take these precautions: oDon t drive, ride a motorcycle, or ride a bike. oDon t operate dangerous equipment such as power tools oTake showers instead of baths. oDon t swim or climb ladders, trees, or roofs. Tell your close friends and relatives about your seizure. Teach them what to do for you if it happens again. If medicine was prescribed to prevent seizures, take it exactly as directed. It does not work when taken as needed. Missing doses will increase the risk of having another seizure. If you miss a dose, take the missed dose as soon as you remember. If it is almost time for your next dose, skip the missed dose. Restart the medicine at your next scheduled time. Don t take extra medicine to make up the missed dose. Wear a Medic-Alert bracelet to let emergency personnel know about your condition. Follow a regular sleep schedule such that you get at least 6 to 8 hours of restful sleep every night. This is especially important when you are sick with a cold or flu and/or another type of infection. For future seizures, if you are alone: If you feel a seizure coming on, lie down on a bed or on the floor with something soft under your head. Lie on your left side, not on your back. This will keep you from falling. It will also let fluid drain out of your mouth and prevent choking. Be sure you are clear of any objects that might injure you during the seizure. Call for help if there is time. For future seizures, if someone is with you: The person should help you get into a safe position and call for help. The person shouldn t try to force anything in your mouth once the seizure begins. This could harm your teeth or jaw. Follow-up care Follow up with your healthcare provider. Keep a seizure calendar to record how often you have a seizure. If you are being started on anti-seizure medicine, make sure that you use additional control. Seizure medicine can affect how well control pills work, and you could become . Avoid alcohol until your doctor tells you it s OK. Note: For the safety of yourself and others on the road, certain states require that the treating doctor tell the Public Health Department about any adult who is treated for a seizure and is at risk of more seizures. In this case, the Department of Motor Vehicles will be told. A restriction will beput on your driver's license reviewing officer s license until a doctor gives you medical clearance to drive again. Contact your treating doctor to find out if your state requires the reporting of patients with a seizures condition. When to seek medical advice Call your healthcare provider right away if any of these occur: Seizures happen more often or last longer than usual A seizure lasts over 5 minutes You don t wake up between seizures Confusion that lasts more than 30 minutes after a seizure Injury during a seizure Fever over 100.4 F (38.0 C), or as advised Unusual irritability, drowsiness, or confusion Stiff or painful neck Headache that gets worse 6380-[address] [employer] [place] [address]. All rights reserved. This information is not intended as a substitute for professional medical care. Always follow yourhealthcare professional's instructions. Additional Information VACCINATE! IT SAVES LIVES! Members of the community who have not yet received the COVID-19 vaccine and would like to receive it can visit one of [facility] vaccine clinics. There are many vaccine clinic locations within the [facility]. For locations and available times, please visit [email or web address]. It is important to note that some COVID mobile vaccine clinics are held outdoors and may be canceled in rainy orstormy conditions. To learn more about pediatric vaccinations (ages 5-11), we invite you to visit the [facility] webpage. [email or web address] learn more about the COVID-19 vaccine, we invite you to visit the [employer] website for a list of frequently asked questions. [email or web address] [facility] Patient Portal Access Instructions: Stay connected with your healthcare team and access your personal medical information anytime with the [facility] Patient Portal. If you would like a full copy of your medical records please contact the [facility] Medical Records Department Friday through Friday between 8a.m. and 4:30p.m. Please follow the directions below to access the portal: 1.Access the email account you provided upon registration to the [facility].2.Look for an invitation email from [facility].3.Open the email and access the invitation link: Accept Invitation to [facility]4.Fill in the required [place] to create your account. Sign into [email or web address] with your username and password that you created in the above steps to stay up to date. You can then view a summary of results, a summary of your visits, and the ability to download your summaries to your computer or send the information securely to a physician. Remember that your healthcare information is confidential, so carefully consider who you will allow to register on the [facility] Patient Portal for access to your information. You can also access the [facility] Patient Portal on the [employer] yen. Simply click on Health Records under [employer] and then click on the [facility] logo. HOW TO SAFELY DISPOSE OF PRESCRIPTION MEDICATIONS Please use one of the following methods to safely dispose of your unused medications. 1.Use a drug disposal kit: the drug disposal pouch allows you to safely discard your old and unuseddrugs. Ask your nurse to give you one when you are discharged.2.Visit a local take-back location: Many local pharmacies and police departments have programs that collect old and unwanted prescriptiondrugs. Call your local pharmacy or go to http://bit.Zenefits/0P6Kj0a to find one close to you.3.Make use of household items: Use cat litter or old coffee grounds to dispose medications if other options arenot available. Mix your drugs with these household products, seal them in an airtight container andthrow it into the garbage. Call [facility]: [phone] to be sure your drugs can be disposed of in this way. Some medicines may require a different approach.4.Never flush your medications down the toilet. IF YOU HAVE BEEN PRESCRIBED AN OPIOIDS FOR PAIN If you have been prescribed an opioid (such as hydrocodone, oxycodone or morphine), it is critical to understand the possible side effects and risks of opioid pain medications. Even when taken as directed, opioids can have several side effects including: Tolerance, meaning you might need to take more of a medication for the same pain relief. Nausea, vomiting and/or constipation. Sleepiness, dizziness, dry mouth, confusion, depression or itching. Physical dependence, meaning you have withdrawal symptoms when a medication is stopped ? this can develop within a few days. KNOW YOUR RESPONSIBILITIES It is important to know exactly how much and how often to take the opioid pain medications you are prescribed. Never take opioids in higher amounts or more often than prescribed. Do not combine opioids with alcohol or other drugs that cause drowsiness, such as benzodiazepines, also known as benzos,including diazepam and alprazolam, muscle relaxants or sleep aids. Never sell or share prescriptionopioids. This is illegal. Store opioids in a secure place and out of reach of others (including children, family, friends and visitors). The last page(s) of this document has been signed and retained as a CHART COPY Signatures Patient Education Materials Seizure, Recurrent (Adult) Medication Leaflets My discharge plan and instructions have been reviewed and explained to me and I,PATRICK KOROMA understand my current condition and have read and understand these discharge instructions. I have received a written copy of the plan/instructions. If I have questions, I am aware that I should contact my doctor. Patient/Mica Miner Signature: Date/Time: Relationship to Patient: Witness Name/Signature: Date/Time: [facility]01-30-2023 Note ORIGINAL EXAMINATION: CT OF THE HEAD WITHOUT CONTRAST07/15/2022 12:50 am TECHNIQUE: CT of the head was performed without the administration of intravenous contrast. Automated exposure control, iterative reconstruction, and/or weight based adjustment of the mA/kV was utilized to reduce the radiation dose to as low as reasonably achievable. COMPARISON: CT head 03/14/2022 HISTORY: ORDERING SYSTEM PROVIDED HISTORY: Reason for Exam: seizures FINDINGS: There is no intracranial hemorrhage, mass, mass effect or abnormal extra-axial fluid collection. No CT evidence for acute infarction. The ventricles are normal. The skull base and calvarium demonstrate no abnormality. Mucosal thickening/retention cysts in the right maxillary sinus. Otherwise the included paranasal sinuses and mastoid air cells are clear. IMPRESSION: No acute intracranial abnormalities. Mild mucosal thickening/retention cysts in the right maxillary sinus. I have personally reviewed the images of this examination and agree with the resident's findings and interpretation. RECOMMENDATIONS: Unavailable Interpreted by: Jeremie Koehler MD Preliminary Report By: Samantha Yancey Electronically signed By Jeremie Koehler MD Dictated Date: 07/15/2022 12:55:39 AM Prelim Date: 07/15/2022 1:10:20 AM Sign Date: 07/15/2022 1:25:42 AM Ordering Provider: DAVONTE PE[facility] Note ORIGINAL EXAMINATION: CT OF THE HEAD WITHOUT CONTRAST07/15/2022 12:50 am TECHNIQUE: CT of the head was performed without the administration of intravenous contrast. Automated exposure control, iterative reconstruction, and/or weight based adjustment of the mA/kV was utilized to reduce the radiation dose to as low as reasonably achievable. COMPARISON: CT head 03/14/2022 HISTORY: ORDERING SYSTEM PROVIDED HISTORY: Reason for Exam: seizures FINDINGS: There is no intracranial hemorrhage, mass, mass effect or abnormal extra-axial fluid collection. No CT evidence for acute infarction. The ventricles are normal. The skull base and calvarium demonstrate no abnormality. Mucosal thickening/retention cysts in the right maxillary sinus. Otherwise the included paranasal sinuses and mastoid air cells are clear. IMPRESSION: No acute intracranial abnormalities. Mild mucosal thickening/retention cysts in the right maxillary sinus. I have personally reviewed the images of this examination and agree with the resident's findings and interpretation. RECOMMENDATIONS: Unavailable Interpreted by: Jeremie Koehler MD Preliminary Report By: Samantha Yancey Electronically signed By Jeremie Koehler MD Dictated Date: 07/15/2022 12:55:39 AM Prelim Date: 07/15/2022 1:10:20 AM Sign Date: 07/15/2022 1:25:42 AM [facility]ing [facility] Discharge instructions Patient Education 06/27/2022 23:32:40 Hypertension, To Be Confirmed High Blood Pressure, To Be Confirmed, No Treatment Your blood pressure today was higher than normal. Sometimes anxiety or pain can cause a temporary rise in blood pressure. It later returns to normal. Blood pressure that is high only one time doesn tmean that you have high blood pressure (hypertension). High blood pressure is a chronic illness. But you should have your blood pressure measured again within the next few days to find out if it s still high. Blood pressure measurements are given as 2 numbers. Systolic blood pressure is the upper number. This is the pressure when the heart contracts. Diastolic blood pressure is the lower number. This is the pressure when the heart relaxes between beats. You will see your blood pressure readings written together. For example, a person with a systolic pressure of 118 and a diastolic pressure of 78 will have 118/78 written in the medical record. Blood pressure is categorized as normal, elevated, or stage 1 or stage 2 high blood pressure: Normal blood pressure is systolic of less than 120 and diastolic of less than 80 (120/80) Elevated blood pressure is systolic of 120 to 129 and diastolic less than 80 Stage 1 high blood pressure is systolic is 130 to 139 or diastolic between 80 to 89 Stage 2 high blood pressure is when systolic is 140 or higher or the diastolic is 90 or higher Lifestyle changes such as weight loss, exercise, and quitting smoking, can help manage your blood pressure. Have your blood pressure checked regularly to be sure it is under control. Home care To track your blood pressure, your provider may ask you to come into the office at different times and on different days. If your healthcare provider asks you to check your readings at home, ask him or her what times of the day to test and for how many days. Before you leave the office, ask your provider to show you how to take your blood pressure and be sure to ask questions if you don't understand something. Consider buying an automatic blood pressure monitor. Ask your provider for a recommendation as wellas the proper size cuff to fit your arm. You can buy blood pressure monitors at most pharmacies. The [place] [employer] recommends the following guidelines for home blood pressure monitoring: Don't smoke or drink coffee or other caffeinated drinks for 30 minutes before taking your blood pressure. Go to the bathroom before the test. Relax for 5 minutes before taking the measurement. Sit with your back supported (don't sit on a couch or soft chair); keep your feet on the floor uncrossed. Place your arm on a solid flat surface (like a table) with the upper part of the arm at heartlevel. Place the middle of the cuff directly above the bend of the elbow. Check the monitor's instruction manual for an illustration. Take multiple readings. When you measure, take 2 to 3 readings one minute apart and record all of the results. Take your blood pressure at the same time every day, or as your healthcare provider recommends. Record the date, time, and blood pressure reading. Take the record with you to your next medical appointment. If your blood pressure monitor has a built-in memory, simply take the monitor with you to your next appointment. Call your provider if you have several high readings. Don't be frightened by a single high blood pressure reading, but if you get several high readings, check in with your healthcare provider. Note: When blood pressure reaches a systolic (top number) of 180 or higher OR diastolic (bottom number) of 110 or higher, seek emergency medical treatment. Follow-up care Keep all of your follow up appointments. If your blood pressure is more than 120 over 80 on 2 out of 3 days, you will need to follow up with your healthcare provider for more evaluation and treatment. Don t put this off! High blood pressure can be treated. High blood pressure that s not treated raises your risk for heart attack, heart failure, and stroke. When to seek medical advice Call your healthcare provider right away if any of these occur: Blood pressure reaches a systolic (top number) of 180 or higher, OR diastolic (bottom number) of 110 or higher Chest pain or shortness of breath Severe headache Throbbing or rushing sound in the ears Nosebleed Sudden severe pain in your belly (abdomen) Extreme drowsiness, confusion, or fainting Dizziness or dizziness with spinning sensation (vertigo) Weakness of an arm or leg or one side of the face You have problems speaking or seeing [id number] [employer] [address] [place] [id number]. All rights reserved. This information is not intended as a substitute for professional medical care. Always follow yourhealthcare professional's instructions. 06/27/2022 23:32:29 Hernia (Adult) Hernia (Adult) A hernia can happen when there is a weakness or defect in the wall of the abdomen or groin. Intestines or nearby tissues may move from their usual location and push through the weakness in the wall. This can cause a hernia (bulge) you may see or feel. Causes and risk factors A hernia may be present at . Or it may be caused by the wear and tear of daily living. Certainfactors can make a hernia more likely. These can include: Heavy lifting Straining, whether from lifting, movement, or constipation Chronic cough Injury to the abdominal wall Excess weight Prior surgery Older age Family history of hernia Symptoms Symptoms of a hernia may come on suddenly. Or they may appear slowly over time. Some common symptoms include: Bulge in the groin area, around the navel, or in the scrotum (the bulge may get bigger when you stand and go away when you lie down) Pain or pressure around the bulge Pain during activities such as lifting, coughing, or sneezing A feeling of weakness or pressure in the groin Pain or swelling in the scrotum Types of hernias There are different types of hernia. The type you have depends on its location: Inguinal. This type is in the groin or scrotum. It is more common in men. But, women can get this hernia, too. Femoral. This type is in the groin, upper thigh (where the leg bends), or labia. It is more common in women. Ventral. This type is in the abdominal wall. Umbilical. This type occurs around the navel (belly button). Incisional. This type occurs at the site of a previous surgery. The condition of the hernia can help determine how urgently it needs to be treated. Reducible. It goes back in by itself, or it can be pushed back in. Irreducible. It can t be pushed back in. Incarcerated/strangulated. The intestine is trapped (incarcerated). If this happens, you won t be able to push the bulge back in. If the incarcerated hernia isn t treated, it may become strangulated.This means the area loses blood supply and the tissue may . This requires emergency surgery. Youneed treatment right away. In most cases, a hernia will not heal on its own.You may need surgery to repair the defect in the abdominal wall or groin. You ll be told more about surgery, if needed. If your symptoms are not severe, treatment may sometimes be delayed. In such cases, you will need regular follow-up visits with the provider. You ll be asked to keep track of your symptoms and to watch for signs of more serious problems. You may also be given guidelines similar to the home care instructions below. Home care To help keep a hernia from getting worse, you may be advised to: Avoid heavy lifting and straining as directed. Take steps to prevent constipation, such as eating more fiber and drinking more water. This may help reduce straining that can occur when having a bowel movement. Reducing straining may help keep your symptoms from getting worse. Maintain a healthy weight or lose excess weight. This can help reduce strain on abdominal muscles and tissues. Stop smoking. This can help prevent coughing that may also strain abdominal muscles and tissues. Follow-up care Follow up with your healthcare provider, or as directed. If imaging tests were done, they will be reviewed a doctor. You will be told the results and any new findings that may affect your care. When to seek medical advice Call your healthcare provider right away if any of these occur: Hernia hardens, swells, or grows larger Hernia can no longer be pushed back in Pain moves to the lower right abdomen (just below the waistline), or spreads to the back Call 911 Call 911 if any of these occur: Severe pain, redness, or tenderness in the area near the hernia Pain worsens quickly and doesn t get better Inability to have a bowel movement or pass gas Fever of 100.4 F (38 C) or higher, or as directed by your healthcare provider [id number] [employer] [address] [place] [address], [place] [address]. All rights reserved. This information is not intended as a substitute for professional medical care. Always follow yourhealthcare professional's instructions. 06/27/2022 23:32:14 Abdominal Pain Abdominal Pain Abdominal pain is pain in the stomach or belly area. Everyone has this pain from time to time. In many cases it goes away on its own. But abdominal pain can sometimes be due to a serious problem, such as appendicitis. So it s important to know when to get help. Causes of abdominal pain There are many possible causes of abdominal pain. Common causes in adults include: Constipation, diarrhea, or gas Stomach acid flowing back up into the esophagus (acid reflux or heartburn) Severe acid reflux, called GERD (gastroesophageal reflux disease) A sore in the lining of the stomach or small intestine (peptic ulcer) Inflammation of the gallbladder, liver, or pancreas Gallstones or kidney stones Appendicitis Intestinal blockage An internal organ pushing through a muscle or other tissue (hernia) Urinary tract infections In women, menstrual cramps, fibroids, ovarian cysts, pelvic inflammatory disease, or endometriosis Inflammation or infection of the intestines, including Crohn's disease and ulcerative colitis Irritable bowel syndrome Diagnosing the cause of abdominal pain Your healthcare provider will give you a physical exam help find the cause of your pain. If needed,you will have tests. Belly pain has many possible causes. So it can be hard to find the reason for your pain. Giving details about your pain can help. Tell your provider where and when you feel the pain, and what makes it better or worse. Also let your provider know if you have other symptoms such as: Fever Tiredness Upset stomach (nausea) Vomiting Changes in bathroom habits Blood in the stool or black, tarry stool Weight loss that you can't explain (involuntary weight loss?) Also report any family history of stomach or intestinal problems, or cancers. Tell your provider about all your alcohol use and drug use. Tell your provider about all medicines you use, including herbs, vitamins, and supplements. Treating abdominal pain Some causes of pain need emergency medical treatment right away. These include appendicitis or a bowel blockage. Other problems can be treated with rest, fluids, or medicines. Your healthcare provider can give you specific instructions for treatment or self-care based on what is causing your pain. If you have vomiting or diarrhea, sip water or other clear fluids. When you are ready to eat solid foods again, start with small amounts of ovfh-lw-fysdrj, low- fat foods. These include apple sauce, toast, or crackers. When to get medical care Call 911 or go to the hospital right away if you: Can t pass stool and are vomiting Are vomiting blood or have bloody diarrhea or black, tarry diarrhea Have chest, neck, or shoulder pain Feel like you might pass out Have pain in your shoulder blades with nausea Have sudden, severe belly pain Have new, severe pain unlike any you have felt before Have a belly that is rigid, hard, and hurts to touch Call your healthcare provider if you have: Pain for more than 5 days Bloating for more than 2 days Diarrhea for more than 5 days A fever of 100.4 F (38 C) or higher, or as directed by your healthcare provider Pain that gets worse Weight loss for no reason Continued lack of appetite Blood in your stool How to prevent abdominal pain Here are some tips to help prevent abdominal pain: Eat smaller amounts of food at each meal. Don't eat greasy, fried, or other high-fat foods. Don't eat foods that give you gas. Exercise regularly. Drink plenty of fluids. To help prevent GERD symptoms: Quit smoking. Reduce alcohol and foods that increase stomach acid. Don't use aspirin or xkva-muc-dxymddp pain and fever medicines, if possible. This includes nonsteroidal anti-inflammatory drugs (NSAIDs). Lose excess weight. Finish eating at least 2 hours before you go to bed or lie down. Raise the head of your bed. [id number] [employer] [address] [place] [address]. All rights reserved. This information is not intended as a substitute for professional medical care. Always follow yourhealthcare professional's instructions. Follow Up Care 06/27/2022 21:34:44 With:Call Physician Referral Address:Unknown When:2-4 days Comments:Call to schedule follow-up for blood pressure check and to establish a primary care doctor.Monitor your blood pressure closely, keep a log of the readings to show the referral doctor. With:AARON DUQUE Address: [address] [facility] [address] [facility] [place] [address]- [phone] Business (1) When:2-4 days Comments:Schedule an appointment for close follow-up.Continue Tylenol for pain as needed.Use Tynan as prescribed for severe pain as needed.Return to the ED if symptoms worsen. [facility] 01-13-2023 Note Discharge Instructions Thank you for allowing [facility] to assist you with your healthcare needs. The following is importantdischarge information regarding your hospital visit. Diagnosis from Today's Visit Abdominal pain Abdominal pain What to Do Next Instructions from Your Care Team No qualifying data available. Post Acute Orders No qualifying data available. You Need to Schedule the Following Appointments Follow Up with Call Physician Referral When Within 2-4 days Why: Call to schedule follow-up for blood pressure check and to establish a primary care doctor. Monitor your blood pressure closely, keep a log of the readings to show the referral doctor. Follow Up with AARON DUQUE When Within 2-4 days Why: Schedule an appointment for close follow-up. Continue Tylenol for pain as needed. Use Tynan as prescribed for severe pain as needed. Return to the ED if symptoms worsen. Where: [address] [facility] [address] [facility] [place] [address]- [phone] Business (1) Allergies Keflex Keppra (Rash) Tape, Paper (Rash) morphine (Rash) naproxen Medications Please ask your primary doctor or pharmacist before taking any other medication not listed, including over the counter drugs, herbal medications, vitamins and or supplements as they may interact withyour home medications. What How Much When Why Instructions Last Dose New acetaminophen-hydrocodone (Tynan 325- 5 mg oral tablet) 1 tab(s) by mouth Every 6 hours as needed for As needed for severe pain Abdominal pain Duration: 3 Days Printed Prescription Unchanged carBAMazepine (TEGretol 200 mg oral tablet) 3 tab(s) by mouth Two (2) times a day Seizure Post-operative state s/p umbilical hernia repair, possible seizure following surgery Unchanged carBAMazepine (TEGretol) 600 Milligram by mouth Two (2) times a day Please take this list to your next doctor s visit. Bring all medications you take, including over the counter medications, herbals and other supplements with you to your doctor s visit. Patients and families are reminded to discard old lists and to update any records with all medication providers or retail pharmacies. Education Materials High Blood Pressure, To Be Confirmed, No Treatment Your blood pressure today was higher than normal. Sometimes anxiety or pain can cause a temporary rise in blood pressure. It later returns to normal. Blood pressure that is high only one time doesn tmean that you have high blood pressure (hypertension). High blood pressure is a chronic illness. But you should have your blood pressure measured again within the next few days to find out if it s still high. Blood pressure measurements are given as 2 numbers. Systolic blood pressure is the upper number. This is the pressure when the heart contracts. Diastolic blood pressure is the lower number. This is the pressure when the heart relaxes between beats. You will see your blood pressure readings written together. For example, a person with a systolic pressure of 118 and a diastolic pressure of 78 will have 118/78 written in the medical record. Blood pressure is categorized as normal, elevated, or stage 1 or stage 2 high blood pressure: Normal blood pressure is systolic of less than 120 and diastolic of less than 80 (120/80) Elevated blood pressure is systolic of 120 to 129 and diastolic less than 80 Stage 1 high blood pressure is systolic is 130 to 139 or diastolic between 80 to 89 Stage 2 high blood pressure is when systolic is 140 or higher or the diastolic is 90 or higher Lifestyle changes such as weight loss, exercise, and quitting smoking, can help manage your blood pressure. Have your blood pressure checked regularly to be sure it is under control. Home care To track your blood pressure, your provider may ask you to come into the office at different times and on different days. If your healthcare provider asks you to check your readings at home, ask him or her what times of the day to test and for how many days. Before you leave the office, ask your provider to show you how to take your blood pressure and be sure to ask questions if you don't understand something. Consider buying an automatic blood pressure monitor. Ask your provider for a recommendation as wellas the proper size cuff to fit your arm. You can buy blood pressure monitors at most pharmacies. The [place] [employer] recommends the following guidelines for home blood pressure monitoring: Don't smoke or drink coffee or other caffeinated drinks for 30 minutes before taking your blood pressure. Go to the bathroom before the test. Relax for 5 minutes before taking the measurement. Sit with your back supported (don't sit on a couch or soft chair); keep your feet on the floor uncrossed. Place your arm on a solid flat surface (like a table) with the upper part of the arm at heartlevel. Place the middle of the cuff directly above the bend of the elbow. Check the monitor's instruction manual for an illustration. Take multiple readings. When you measure, take 2 to 3 readings one minute apart and record all of the results. Take your blood pressure at the same time every day, or as your healthcare provider recommends. Record the date, time, and blood pressure reading. Take the record with you to your next medical appointment. If your blood pressure monitor has a built-in memory, simply take the monitor with you to your next appointment. Call your provider if you have several high readings. Don't be frightened by a single high blood pressure reading, but if you get several high readings, check in with your healthcare provider. Note: When blood pressure reaches a systolic (top number) of 180 or higher OR diastolic (bottom number) of 110 or higher, seek emergency medical treatment. Follow-up care Keep all of your follow up appointments. If your blood pressure is more than 120 over 80 on 2 out of 3 days, you will need to follow up with your healthcare provider for more evaluation and treatment. Don t put this off! High blood pressure can be treated. High blood pressure that s not treated raises your risk for heart attack, heart failure, and stroke. When to seek medical advice Call your healthcare provider right away if any of these occur: Blood pressure reaches a systolic (top number) of 180 or higher, OR diastolic (bottom number) of 110 or higher Chest pain or shortness of breath Severe headache Throbbing or rushing sound in the ears Nosebleed Sudden severe pain in your belly (abdomen) Extreme drowsiness, confusion, or fainting Dizziness or dizziness with spinning sensation (vertigo) Weakness of an arm or leg or one side of the face You have problems speaking or seeing [id number] [employer] [address] [place] [address]. All rights reserved. This information is not intended as a substitute for professional medical care. Always follow yourhealthcare professional's instructions. Hernia (Adult) A hernia can happen when there is a weakness or defect in the wall of the abdomen or groin. Intestines or nearby tissues may move from their usual location and push through the weakness in the wall. This can cause a hernia (bulge) you may see or feel. Causes and risk factors A hernia may be present at . Or it may be caused by the wear and tear of daily living. Certainfactors can make a hernia more likely. These can include: Heavy lifting Straining, whether from lifting, movement, or constipation Chronic cough Injury to the abdominal wall Excess weight Prior surgery Older age Family history of hernia Symptoms Symptoms of a hernia may come on suddenly. Or they may appear slowly over time. Some common symptoms include: Bulge in the groin area, around the navel, or in the scrotum (the bulge may get bigger when you stand and go away when you lie down) Pain or pressure around the bulge Pain during activities such as lifting, coughing, or sneezing A feeling of weakness or pressure in the groin Pain or swelling in the scrotum Types of hernias There are different types of hernia. The type you have depends on its location: Inguinal. This type is in the groin or scrotum. It is more common in men. But, women can get this hernia, too. Femoral. This type is in the groin, upper thigh (where the leg bends), or labia. It is more common in women. Ventral. This type is in the abdominal wall. Umbilical. This type occurs around the navel (belly button). Incisional. This type occurs at the site of a previous surgery. The condition of the hernia can help determine how urgently it needs to be treated. Reducible. It goes back in by itself, or it can be pushed back in. Irreducible. It can t be pushed back in. Incarcerated/strangulated. The intestine is trapped (incarcerated). If this happens, you won t be able to push the bulge back in. If the incarcerated hernia isn t treated, it may become strangulated.This means the area loses blood supply and the tissue may . This requires emergency surgery. Youneed treatment right away. In most cases, a hernia will not heal on its own.You may need surgery to repair the defect in the abdominal wall or groin. You ll be told more about surgery, if needed. If your symptoms are not severe, treatment may sometimes be delayed. In such cases, you will need regular follow-up visits with the provider. You ll be asked to keep track of your symptoms and to watch for signs of more serious problems. You may also be given guidelines similar to the home care instructions below. Home care To help keep a hernia from getting worse, you may be advised to: Avoid heavy lifting and straining as directed. Take steps to prevent constipation, such as eating more fiber and drinking more water. This may help reduce straining that can occur when having a bowel movement. Reducing straining may help keep your symptoms from getting worse. Maintain a healthy weight or lose excess weight. This can help reduce strain on abdominal muscles and tissues. Stop smoking. This can help prevent coughing that may also strain abdominal muscles and tissues. Follow-up care Follow up with your healthcare provider, or as directed. If imaging tests were done, they will be reviewed a doctor. You will be told the results and any new findings that may affect your care. When to seek medical advice Call your healthcare provider right away if any of these occur: Hernia hardens, swells, or grows larger Hernia can no longer be pushed back in Pain moves to the lower right abdomen (just below the waistline), or spreads to the back Call 911 Call 911 if any of these occur: Severe pain, redness, or tenderness in the area near the hernia Pain worsens quickly and doesn t get better Inability to have a bowel movement or pass gas Fever of 100.4 F (38 C) or higher, or as directed by your healthcare provider 6216-[address] [employer]. [address] [place] [address]. All rights reserved. This information is not intended as a substitute for professional medical care. Always follow yourhealthcare professional's instructions. Abdominal Pain Abdominal pain is pain in the stomach or belly area. Everyone has this pain from time to time. In many cases it goes away on its own. But abdominal pain can sometimes be due to a serious problem, such as appendicitis. So it s important to know when to get help. Causes of abdominal pain There are many possible causes of abdominal pain. Common causes in adults include: Constipation, diarrhea, or gas Stomach acid flowing back up into the esophagus (acid reflux or heartburn) Severe acid reflux, called GERD (gastroesophageal reflux disease) A sore in the lining of the stomach or small intestine (peptic ulcer) Inflammation of the gallbladder, liver, or pancreas Gallstones or kidney stones Appendicitis Intestinal blockage An internal organ pushing through a muscle or other tissue (hernia) Urinary tract infections In women, menstrual cramps, fibroids, ovarian cysts, pelvic inflammatory disease, or endometriosis Inflammation or infection of the intestines, including Crohn's disease and ulcerative colitis Irritable bowel syndrome Diagnosing the cause of abdominal pain Your healthcare provider will give you a physical exam help find the cause of your pain. If needed,you will have tests. Belly pain has many possible causes. So it can be hard to find the reason for your pain. Giving details about your pain can help. Tell your provider where and when you feel the pain, and what makes it better or worse. Also let your provider know if you have other symptoms such as: Fever Tiredness Upset stomach (nausea) Vomiting Changes in bathroom habits Blood in the stool or black, tarry stool Weight loss that you can't explain (involuntary weight loss?) Also report any family history of stomach or intestinal problems, or cancers. Tell your provider about all your alcohol use and drug use. Tell your provider about all medicines you use, including herbs, vitamins, and supplements. Treating abdominal pain Some causes of pain need emergency medical treatment right away. These include appendicitis or a bowel blockage. Other problems can be treated with rest, fluids, or medicines. Your healthcare provider can give you specific instructions for treatment or self-care based on what is causing your pain. If you have vomiting or diarrhea, sip water or other clear fluids. When you are ready to eat solid foods again, start with small amounts of wher-uu-ngxhuv, low- fat foods. These include apple sauce, toast, or crackers. When to get medical care Call 911 or go to the hospital right away if you: Can t pass stool and are vomiting Are vomiting blood or have bloody diarrhea or black, tarry diarrhea Have chest, neck, or shoulder pain Feel like you might pass out Have pain in your shoulder blades with nausea Have sudden, severe belly pain Have new, severe pain unlike any you have felt before Have a belly that is rigid, hard, and hurts to touch Call your healthcare provider if you have: Pain for more than 5 days Bloating for more than 2 days Diarrhea for more than 5 days A fever of 100.4 F (38 C) or higher, or as directed by your healthcare provider Pain that gets worse Weight loss for no reason Continued lack of appetite Blood in your stool How to prevent abdominal pain Here are some tips to help prevent abdominal pain: Eat smaller amounts of food at each meal. Don't eat greasy, fried, or other high-fat foods. Don't eat foods that give you gas. Exercise regularly. Drink plenty of fluids. To help prevent GERD symptoms: Quit smoking. Reduce alcohol and foods that increase stomach acid. Don't use aspirin or fbys-kxr-ormzhwp pain and fever medicines, if possible. This includes nonsteroidal anti-inflammatory drugs (NSAIDs). Lose excess weight. Finish eating at least 2 hours before you go to bed or lie down. Raise the head of your bed. [id number] [employer] [address] [place] [address]. All rights reserved. This information is not intended as a substitute for professional medical care. Always follow yourhealthcare professional's instructions. Additional Information VACCINATE! IT SAVES LIVES! Members of the community who have not yet received the COVID-19 vaccine and would like to receive it can visit one of [facility] vaccine clinics. There are many vaccine clinic locations within the [facility]. For locations and available times, please visit [email or web address]. It is important to note that some COVID mobile vaccine clinics are held outdoors and may be canceled in rainy orstormy conditions. To learn more about pediatric vaccinations (ages 5-11), we invite you to visit the [facility] webpage. [email or web address] learn more about the COVID-19 vaccine, we invite you to visit the [employer] website for a list of frequently asked questions. [email or web address] [facility] Patient Portal Access Instructions: Stay connected with your healthcare team and access your personal medical information anytime with the [facility] Patient Portal. If you would like a full copy of your medical records please contact the [facility] Medical Records Department Friday through Friday between 8a.m. and 4:30p.m. Please follow the directions below to access the portal: 1.Access the email account you provided upon registration to the [facility].2.Look for an invitation email from [facility].3.Open the email and access the invitation link: Accept Invitation to [facility]4.Fill in the required vegas to create your account. Sign into [email or web address] with your username and password that you created in the above steps to stay up to date. You can then view a summary of results, a summary of your visits, and the ability to download your summaries to your computer or send the information securely to a physician. Remember that your healthcare information is confidential, so carefully consider who you will allow to register on the [employer] Patient Portal for access to your information. You can also access the [employer] Patient Portal on the [employer] yen. Simply click on Health Records under [employer] and then click on the [employer] logo. HOW TO SAFELY DISPOSE OF PRESCRIPTION MEDICATIONS Please use one of the following methods to safely dispose of your unused medications. 1.Use a drug disposal kit: the drug disposal pouch allows you to safely discard your old and unuseddrugs. Ask your nurse to give you one when you are discharged.2.Visit a local take-back location: Many local pharmacies and police departments have programs that collect old and unwanted prescriptiondrugs. Call your local pharmacy or go to http://Jiberish.Zenefits/3W9Ev7x to find one close to you.3.Make use of household items: Use cat litter or old coffee grounds to dispose medications if other options arenot available. Mix your drugs with these household products, seal them in an airtight container andthrow it into the garbage. Call [facility]: [phone] to be sure your drugs can be disposed of in this way. Some medicines may require a different approach.4.Never flush your medications down the toilet. IF YOU HAVE BEEN PRESCRIBED AN OPIOIDS FOR PAIN If you have been prescribed an opioid (such as hydrocodone, oxycodone or morphine), it is critical to understand the possible side effects and risks of opioid pain medications. Even when taken as directed, opioids can have several side effects including: Tolerance, meaning you might need to take more of a medication for the same pain relief. Nausea, vomiting and/or constipation. Sleepiness, dizziness, dry mouth, confusion, depression or itching. Physical dependence, meaning you have withdrawal symptoms when a medication is stopped ? this can develop within a few days. KNOW YOUR RESPONSIBILITIES It is important to know exactly how much and how often to take the opioid pain medications you are prescribed. Never take opioids in higher amounts or more often than prescribed. Do not combine opioids with alcohol or other drugs that cause drowsiness, such as benzodiazepines, also known as benzos,including diazepam and alprazolam, muscle relaxants or sleep aids. Never sell or share prescriptionopioids. This is illegal. Store opioids in a secure place and out of reach of others (including children, family, friends and visitors). The last page(s) of this document has been signed and retained as a CHART COPY Signatures Patient Education Materials Hypertension, To Be Confirmed Hernia (Adult) Abdominal Pain Medication Leaflets My discharge plan and instructions have been reviewed and explained to me and I,PATRICK KOROMA understand my current condition and have read and understand these discharge instructions. I have received a written copy of the plan/instructions. If I have questions, I am aware that I should contact my doctor. Patient/Mica Miner Signature: Date/Time: Relationship to Patient: Witness Name/Signature: Date/Time: [facility]01-12-2023 Note ORIGINAL EXAMINATION: CT OF THE ABDOMEN AND PELVIS WITH CONTRAST06/27/2022 11:17 pm TECHNIQUE: CT of the abdomen and pelvis was performed with the administration of intravenous contrast. Multiplanar reformatted images are provided for review. Automated exposure control, iterative reconstruction, and/or weight based adjustment of the mA/kV was utilized to reduce the radiation dose to as low as reasonably achievable. COMPARISON: 05/31/2022 HISTORY: ORDERING SYSTEM PROVIDED HISTORY: Reason for Exam: Continued supra umbilical abdominal pain and swelling, history of hernia repair FINDINGS: The included lung bases are clear. There is no visible pleural or pericardial effusion. The heart is normal in size. The liver, spleen, adrenal glands, and pancreas are within normal limits. No filling defects seen in the gallbladder. The kidneys enhance symmetrically. Tiny unchanged left renal lesion is likely a cyst and does not require surveillance. The large and small bowel demonstrate no obstruction. The appendix is normal. No free intraperitoneal fluid or gas is identified. The aorta is normal in caliber. There is mild atherosclerosis of the larger arteries. There is no lymphadenopathy. No filling defects seen in the urinary bladder. There is no fracture or aggressive osseous lesion. Degenerative changes are present in the spine. Small fat containing inguinal hernias noted. Diastasis of the rectus musculature noted. There is a fat containing hernia the near the umbilicus measuring 5.3 cm. A superficial subcutaneous fluid collection in this region measures 5.1 cm. IMPRESSION: No significant change in the fluid collection near the umbilicus. Given the clinical history, this could relate to postoperative seroma or hematoma. Interpreted by: Jorgito De La Rosa MD Preliminary Report By: Jorgito De La Rosa MD Electronically signed By Jorgito De La Rosa MD Dictated Date: 06/27/2022 11:19:30 PM Prelim Date: 06/27/2022 11:27:05 PM Sign Date: 06/27/2022 11:27:05 PM Ordering Provider: [facility]01-12-2023 Note ORIGINAL EXAMINATION: CT OF THE ABDOMEN AND PELVIS WITH CONTRAST06/27/2022 11:17 pm TECHNIQUE: CT of the abdomen and pelvis was performed with the administration of intravenous contrast. Multiplanar reformatted images are provided for review. Automated exposure control, iterative reconstruction, and/or weight based adjustment of the mA/kV was utilized to reduce the radiation dose to as low as reasonably achievable. COMPARISON: 05/31/2022 HISTORY: ORDERING SYSTEM PROVIDED HISTORY: Reason for Exam: Continued supra umbilical abdominal pain and swelling, history of hernia repair FINDINGS: The included lung bases are clear. There is no visible pleural or pericardial effusion. The heart is normal in size. The liver, spleen, adrenal glands, and pancreas are within normal limits. No filling defects seen in the gallbladder. The kidneys enhance symmetrically. Tiny unchanged left renal lesion is likely a cyst and does not require surveillance. The large and small bowel demonstrate no obstruction. The appendix is normal. No free intraperitoneal fluid or gas is identified. The aorta is normal in caliber. There is mild atherosclerosis of the larger arteries. There is no lymphadenopathy. No filling defects seen in the urinary bladder. There is no fracture or aggressive osseous lesion. Degenerative changes are present in the spine. Small fat containing inguinal hernias noted. Diastasis of the rectus musculature noted. There is a fat containing hernia the near the umbilicus measuring 5.3 cm. A superficial subcutaneous fluid collection in this region measures 5.1 cm. IMPRESSION: No significant change in the fluid collection near the umbilicus. Given the clinical history, this could relate to postoperative seroma or hematoma. Interpreted by: Jorgito De La Rosa MD Preliminary Report By: Jorgito De La Rosa MD Electronically signed By Jorgito De La Rosa MD Dictated Date: 06/27/2022 11:19:30 PM Prelim Date: 06/27/2022 11:27:05 PM Sign Date: 06/27/2022 11:27:05 PM Ordering Provider: [facility]01-05-2023 Hospital Discharge instructions* Discharge Instructions* ERIC Mandel - 06/20/2022 12:31 AM EST Please take medication as prescribed Please follow up with your Physicians as instructed in this discharge paperwork Thank you for choosing [facility] I appreciate your patience Please return to the emergency department if your symptoms worsen, or new symptoms develop as discussed documented in this [facility]01-04-2023 Emergency department Note* ERIC Mandel - 06/19/2022 7:06 PM EST [facility] ED EMERGENCY DEPARTMENT ENCOUNTER Pt Name: Patrick Koroma Birthdate 1980 Date of evaluation: 06/19/2022 Provider: ERIC Mandel CHIEF COMPLAINT Chief Complaint Patient presents with Headache Pt states headache, states HX of seizures, family told him that he has been staring off. Pt states that he feels fine, and is taking his medication as prescribed and has not had any seizures to his knowledge. HISTORY OF PRESENT ILLNESS (Location/Symptom, Timing/Onset, Context/Setting, Quality,Duration, Modifying Factors, Severity) Note limiting factors. HPI I have seen this patient With supervising physician Does this patient come from an ECF, SNF, Rehab, Chcf or other Congregate setting: no (If yes to above patient needs a Covid-19 test) Patrick Koroma is a 42 y.o. male who presents to the emergency department having a seizure. Patient states he has a history of epilepsy which she is taking Tegretol for. He states that he has had seizures for multiple years in which his last known seizure was in November. He states that he usually stares off. Today family noted that he had his head resting against a wall and was staring off and tohappen for less than 3 minutes. Patient felt fatigued and mild brain fog when he woke up had a mildheadache however his headache is gone away. He denies have any fever, chills, nausea, vomiting, diarrhea, chest pain, shortness of breath. Patient denies having a headache at this time no change in vision just feels tired. Patient states has been taking his medication no significant alcohol use. Hedenies any head trauma. Patient has no other complaints at this time REVIEW OF SYSTEMS (2+ for level 4; 10+ for level 5) Review of Systems Constitutional: Negative for chills, fatigue and fever. HENT: Negative for congestion and sore throat. Respiratory: Negative for cough and shortness of breath. Cardiovascular: Negative for chest pain. Gastrointestinal: Negative for diarrhea, nausea and vomiting. Genitourinary: Negative for flank pain. Musculoskeletal: Negative for back pain. Skin: Negative for wound. Neurological: Positive for seizures. Negative for numbness and headaches. Psychiatric/Behavioral: Negative for behavioral problems. PAST MEDICAL HISTORY Past Medical History: Diagnosis Date Seizures ([facility]) SURGICAL HISTORY Past Surgical History: Procedure Laterality Date APPENDECTOMY HERNIA REPAIR CURRENT MEDICATIONS Previous Medications No medications on file ALLERGIES Morphine, Cephalexin, Levetiracetam, Naproxen, and Pedi-pre tape spray [wound dressing adhesive] FAMILY HISTORY No family history on file. SOCIAL HISTORY Social History Socioeconomic History Marital status: Single Tobacco Use Smoking status: Every Day Smokeless tobacco: Never Substance and Sexual Activity Alcohol use: Not Currently Drug use: Not Currently SCREENINGS Patient symptoms are consistent with sepsis, severe sepsis or septic shock (if yes, use use sepsiscore measure): no PHYSICAL EXAM (up to 7 forlevel 4, 8 or more for level 5) ED Triage Vitals [06/19/22 1936] Temp Heart Rate Resp BP 37.3 C (99.1 F) 110 18 126/87 SpO2 Temp Source Heart Rate Source Patient Position 96 % Temporal Monitor -- BP Location FiO2 (%) -- -- Physical Exam Constitutional: General: He is not in acute distress. Appearance: He is not diaphoretic. Comments: Well-appearing, nontoxic-appearing HENT: Head: Normocephalic and atraumatic. Eyes: General: No scleral icterus. Extraocular Movements: Extraocular movements intact. Cardiovascular: Rate and Rhythm: Normal rate and regular rhythm. Heart sounds: Normal heart sounds. Pulmonary: Effort: Pulmonary effort is normal. No respiratory distress. Breath sounds: Normal breath sounds. No wheezing or rales. Abdominal: Tenderness: There is no abdominal tenderness. Musculoskeletal: General: No tenderness. Normal range of motion. Cervical back: Normal range of motion. Comments: Patient has 5/5 strength in upper and lower extremities bilateral with normal ferry engineer strength, normal plantar flexion and dorsiflexion. Skin: Findings: No erythema or rash. Neurological: General: No focal deficit present. Mental Status: He is oriented to person, place, and time. Comments: Cranial Nerves 2-12 are intact without without any neurological deficits Normal zsgjni-ur-wuwfqg, jivwjl-xf-axtr, alternating hands, heel to tong test bilateral negative skew able to walk with normal gait Psychiatric: Mood and Affect: Mood normal. Behavior: Behavior normal. Thought Content: Thought content normal. Judgment: Judgment normal. DIAGNOSTIC RESULTS EKG (Per Emergency Physician): Not clinically indicated No results found for this or any previous visit (from the past 4464 hour(s)). LABS: Labs Reviewed CBC WITH AUTO DIFFERENTIAL - Abnormal Result Value Auto WBC 9.2 RBC 4.70 Hemoglobin 14.5 Hematocrit 42.3 MCV 90.0 MCH 30.7 MCHC 34.2 RDW 14.3 Platelets 296 MPV 7.0 (*) nRBC 0.0 Neutrophils Relative 58.7 Lymphocytes Relative 31.3 Monocytes Relative 6.3 Eosinophils Relative 2.4 Basophils Relative 1.3 Neutrophils Absolute 5.4 Lymphocytes Absolute 2.9 Monocytes Absolute 0.6 Eosinophils Absolute 0.2 Basophils Absolute 0.1 CARBAMAZEPINE - Abnormal CARBAMAZEPINE 14.5 (*) BASIC METABOLIC PANEL - Normal SODIUM 137 POTASSIUM 4.3 CHLORIDE 105 CARBON DIOXIDE 26 UREA NITROGEN 14 CREATININE 0.71 GLUCOSE 100 CALCIUM 9.0 ANION GAP 6 eGFR >90.0 Radiology Interpretation per the Radiologist below, if available at the time of this note: No orders to display ED BEDSIDE ULTRASOUND Performed by ED Physician or YEN: None EMERGENCY DEPARTMENT COURSE and DIFFERENTIAL DIAGNOSIS/MDM: Vitals: Vitals: 06/19/22 1936 BP: 126/87 Pulse: 110 Resp: 18 Temp: 37.3 C (99.1 F) TempSrc: Temporal SpO2: 96% Medications - No data to display Medical Decision Making Problems Addressed: Seizure (CMS/HCC) (HCC): complicated acute illness or injury Amount and/or Complexity of Data Reviewed Labs: ordered. . Nursing Notes were reviewed. CC reviewed, please see HPI for patients CC for my interview Previous Medical charts and nurses note have been reviewed. Available Labs in the ED were reviewed Please see images performed above and radiologist interpretation. Please see medications given in the ED above. Based on all information given at this time, I reviewed patient CBC, BMP and carbamazepine level inwhich patient does not have any significant electrolyte abnormality, no leukocytosis or anemia which lowers my suspicion for infection. Patient does have a therapeutic carbamazepine level. Patient has no neurological deficits on examination has a history of epilepsy. I do not believe the patient requires further advanced imaging at this time in which the patient had a normal CT scan in February.I will have the patient follow-up with his home doctor and also neurology in which she instructed to come back to the emergency department for worsening symptoms and is agreeable this plan. Patient was instructed not to drive until neurology clears him in which she is agreeable this plan. He tells m e his car not driving when he was due to a partbreaking in the past Differentials include: -Seizure, electrolyte abnormality At this time, the information and evidence obtained from the HPI and physical examination does not warrant any other testing including laboratory or imaging. Please see below for medications given at discharge. Please see below for patient follow up appointment. Patient was instructed to take medication as prescribed. Patient was also instructed to return to the emergency department if symptoms worsen, or new symptoms develop and these symptoms were discussed with the patient such as have another seizure today, develop neurological changes, confusion to name a few. I Kyree Christie PA-C am the primary YEN clinician of record Comment: Please note this report has been produced using speech recognition software and may contain errors related to that system including errors in grammar, punctuation, and spelling, as well as words and phrases that may be inappropriate. If there are any questions or concerns please feel free to contact the dictating provider for clarification. REVAL: Reevaluation the patient upon Discharge showed no new physical exam finding, symptomatic complaints, stable vital signs. CRITICAL CARE TIME Total Critical Care time was 0 minutes, excluding separately reportable procedures. There was a high probability ofclinically significant/life threatening deterioration in the patient's condition which required my urgent intervention. CONSULTS: None PROCEDURES: Unless otherwise noted below, none Procedures FINAL IMPRESSION 1. Seizure (CMS/HCC) (HCC) DISPOSITION/PLAN DISPOSITION Discharge 06/20/2022 12:30:39 AM PATIENT REFERRED TO: [facility] [address] [facility] [address] Schedule an appointment as soon as possible for a visit in 2 days [facility] [address] [facility] [address] Schedule an appointment as soon as possible for a visit in 1 week [facility] ED [address] [facility] [address] Go to If symptoms worsen DISCHARGE MEDICATIONS: New Prescriptions No medications on file (Please note: Portions of this note were completed with a voice recognition program. Efforts were made to edit thedictations but occasionally words and phrases are mis-transcribed.) Form v2016.J.[id number] ERIC Mandel (electronically signed) Emergency Medicine Provider ERIC Mandel 06/20/2233 ERIC Mandel 06/20/228 documented in this [facility]01-04-2023 Physician Emergency department Note* ERIC Mandel - 06/19/2022 7:06 PM EST [facility] ED EMERGENCY DEPARTMENT ENCOUNTER Pt Name: Patrick Koroma Birthdate 1980 Date of evaluation: 06/19/2022 Provider: ERIC Mandel CHIEF COMPLAINT Chief Complaint Patient presents with Headache Pt states headache, states HX of seizures, family told him that he has been staring off. Pt states that he feels fine, and is taking his medication as prescribed and has not had any seizures to his knowledge. HISTORY OF PRESENT ILLNESS (Location/Symptom, Timing/Onset, Context/Setting, Quality,Duration, Modifying Factors, Severity) Note limiting factors. HPI I have seen this patient With supervising physician Does this patient come from an ECF, SNF, Rehab, Chcf or other Congregate setting: no (If yes to above patient needs a Covid-19 test) Patrick Koroma is a 42 y.o. male who presents to the emergency department having a seizure. Patient states he has a history of epilepsy which she is taking Tegretol for. He states that he has had seizures for multiple years in which his last known seizure was in November. He states that he usually stares off. Today family noted that he had his head resting against a wall and was staring off and tohappen for less than 3 minutes. Patient felt fatigued and mild brain fog when he woke up had a mildheadache however his headache is gone away. He denies have any fever, chills, nausea, vomiting, diarrhea, chest pain, shortness of breath. Patient denies having a headache at this time no change in vision just feels tired. Patient states has been taking his medication no significant alcohol use. Hedenies any head trauma. Patient has no other complaints at this time REVIEW OF SYSTEMS (2+ for level 4; 10+ for level 5) Review of Systems Constitutional: Negative for chills, fatigue and fever. HENT: Negative for congestion and sore throat. Respiratory: Negative for cough and shortness of breath. Cardiovascular: Negative for chest pain. Gastrointestinal: Negative for diarrhea, nausea and vomiting. Genitourinary: Negative for flank pain. Musculoskeletal: Negative for back pain. Skin: Negative for wound. Neurological: Positive for seizures. Negative for numbness and headaches. Psychiatric/Behavioral: Negative for behavioral problems. PAST MEDICAL HISTORY Past Medical History: Diagnosis Date Seizures ([facility]) SURGICAL HISTORY Past Surgical History: Procedure Laterality Date APPENDECTOMY HERNIA REPAIR CURRENT MEDICATIONS Previous Medications No medications on file ALLERGIES Morphine, Cephalexin, Levetiracetam, Naproxen, and Pedi-pre tape spray [wound dressing adhesive] FAMILY HISTORY No family history on file. SOCIAL HISTORY Social History Socioeconomic History Marital status: Single Tobacco Use Smoking status: Every Day Smokeless tobacco: Never Substance and Sexual Activity Alcohol use: Not Currently Drug use: Not Currently SCREENINGS Patient symptoms are consistent with sepsis, severe sepsis or septic shock (if yes, use use sepsiscore measure): no PHYSICAL EXAM (up to 7 forlevel 4, 8 or more for level 5) ED Triage Vitals [06/19/22 1936] Temp Heart Rate Resp BP 37.3 C (99.1 F) 110 18 126/87 SpO2 Temp Source Heart Rate Source Patient Position 96 % Temporal Monitor -- BP Location FiO2 (%) -- -- Physical Exam Constitutional: General: He is not in acute distress. Appearance: He is not diaphoretic. Comments: Well-appearing, nontoxic-appearing HENT: Head: Normocephalic and atraumatic. Eyes: General: No scleral icterus. Extraocular Movements: Extraocular movements intact. Cardiovascular: Rate and Rhythm: Normal rate and regular rhythm. Heart sounds: Normal heart sounds. Pulmonary: Effort: Pulmonary effort is normal. No respiratory distress. Breath sounds: Normal breath sounds. No wheezing or rales. Abdominal: Tenderness: There is no abdominal tenderness. Musculoskeletal: General: No tenderness. Normal range of motion. Cervical back: Normal range of motion. Comments: Patient has 5/5 strength in upper and lower extremities bilateral with normal ferry engineer strength, normal plantar flexion and dorsiflexion. Skin: Findings: No erythema or rash. Neurological: General: No focal deficit present. Mental Status: He is oriented to person, place, and time. Comments: Cranial Nerves 2-12 are intact without without any neurological deficits Normal igisgl-gu-pxmhcy, lpytzt-oj-wjxg, alternating hands, heel to tong test bilateral negative skew able to walk with normal gait Psychiatric: Mood and Affect: Mood normal. Behavior: Behavior normal. Thought Content: Thought content normal. Judgment: Judgment normal. DIAGNOSTIC RESULTS EKG (Per Emergency Physician): Not clinically indicated No results found for this or any previous visit (from the past 4464 hour(s)). LABS: Labs Reviewed CBC WITH AUTO DIFFERENTIAL - Abnormal Result Value Auto WBC 9.2 RBC 4.70 Hemoglobin 14.5 Hematocrit 42.3 MCV 90.0 MCH 30.7 MCHC 34.2 RDW 14.3 Platelets 296 MPV 7.0 (*) nRBC 0.0 Neutrophils Relative 58.7 Lymphocytes Relative 31.3 Monocytes Relative 6.3 Eosinophils Relative 2.4 Basophils Relative 1.3 Neutrophils Absolute 5.4 Lymphocytes Absolute 2.9 Monocytes Absolute 0.6 Eosinophils Absolute 0.2 Basophils Absolute 0.1 CARBAMAZEPINE - Abnormal CARBAMAZEPINE 14.5 (*) BASIC METABOLIC PANEL - Normal SODIUM 137 POTASSIUM 4.3 CHLORIDE 105 CARBON DIOXIDE 26 UREA NITROGEN 14 CREATININE 0.71 GLUCOSE 100 CALCIUM 9.0 ANION GAP 6 eGFR >90.0 Radiology Interpretation per the Radiologist below, if available at the time of this note: No orders to display ED BEDSIDE ULTRASOUND Performed by ED Physician or YEN: None EMERGENCY DEPARTMENT COURSE and DIFFERENTIAL DIAGNOSIS/MDM: Vitals: Vitals: 06/19/22 1936 BP: 126/87 Pulse: 110 Resp: 18 Temp: 37.3 C (99.1 F) TempSrc: Temporal SpO2: 96% Medications - No data to display Medical Decision Making Problems Addressed: Seizure (CMS/HCC) (HCC): complicated acute illness or injury Amount and/or Complexity of Data Reviewed Labs: ordered. . Nursing Notes were reviewed. CC reviewed, please see HPI for patients CC for my interview Previous Medical charts and nurses note have been reviewed. Available Labs in the ED were reviewed Please see images performed above and radiologist interpretation. Please see medications given in the ED above. Based on all information given at this time, I reviewed patient CBC, BMP and carbamazepine level inwhich patient does not have any significant electrolyte abnormality, no leukocytosis or anemia which lowers my suspicion for infection. Patient does have a therapeutic carbamazepine level. Patient has no neurological deficits on examination has a history of epilepsy. I do not believe the patient requires further advanced imaging at this time in which the patient had a normal CT scan in February.I will have the patient follow-up with his home doctor and also neurology in which she instructed to come back to the emergency department for worsening symptoms and is agreeable this plan. Patient was instructed not to drive until neurology clears him in which she is agreeable this plan. He tells m e his car not driving when he was due to a partbreaking in the past Differentials include: -Seizure, electrolyte abnormality At this time, the information and evidence obtained from the HPI and physical examination does not warrant any other testing including laboratory or imaging. Please see below for medications given at discharge. Please see below for patient follow up appointment. Patient was instructed to take medication as prescribed. Patient was also instructed to return to the emergency department if symptoms worsen, or new symptoms develop and these symptoms were discussed with the patient such as have another seizure today, develop neurological changes, confusion to name a few. I Kyree Christie PA-C am the primary YEN clinician of record Comment: Please note this report has been produced using speech recognition software and may contain errors related to that system including errors in grammar, punctuation, and spelling, as well as words and phrases that may be inappropriate. If there are any questions or concerns please feel free to contact the dictating provider for clarification. REVAL: Reevaluation the patient upon Discharge showed no new physical exam finding, symptomatic complaints, stable vital signs. CRITICAL CARE TIME Total Critical Care time was 0 minutes, excluding separately reportable procedures. There was a high probability ofclinically significant/life threatening deterioration in the patient's condition which required my urgent intervention. CONSULTS: None PROCEDURES: Unless otherwise noted below, none Procedures FINAL IMPRESSION 1. Seizure (CMS/HCC) (HCC) DISPOSITION/PLAN DISPOSITION Discharge 06/20/2022 12:30:39 AM PATIENT REFERRED TO: [facility] [address] [facility] [address] Schedule an appointment as soon as possible for a visit in 2 days [facility] [address] [facility] [phone] Schedule an appointment as soon as possible for a visit in 1 week [facility] ED [address] [facility] [address] Go to If symptoms worsen DISCHARGE MEDICATIONS: New Prescriptions No medications on file (Please note: Portions of this note were completed with a voice recognition program. Efforts were made to edit thedictations but occasionally words and phrases are mis-transcribed.) Form v2016.J.[id number] ERIC Mandel (electronically signed) Emergency Medicine Provider ERIC Mandel 06/20/22 0034 ERIC Mandel 06/20/22 0038 [facility] [employer] Phone: [phone] Hospital Discharge instructions Patient Education 05/31/2022 23:54:43 Hernia (Adult) Hernia (Adult) A hernia can happen when there is a weakness or defect in the wall of the abdomen or groin. Intestines or nearby tissues may move from their usual location and push through the weakness in the wall. This can cause a hernia (bulge) you may see or feel. Causes and risk factors A hernia may be present at . Or it may be caused by the wear and tear of daily living. Certainfactors can make a hernia more likely. These can include: Heavy lifting Straining, whether from lifting, movement, or constipation Chronic cough Injury to the abdominal wall Excess weight Prior surgery Older age Family history of hernia Symptoms Symptoms of a hernia may come on suddenly. Or they may appear slowly over time. Some common symptoms include: Bulge in the groin area, around the navel, or in the scrotum (the bulge may get bigger when you stand and go away when you lie down) Pain or pressure around the bulge Pain during activities such as lifting, coughing, or sneezing A feeling of weakness or pressure in the groin Pain or swelling in the scrotum Types of hernias There are different types of hernia. The type you have depends on its location: Inguinal. This type is in the groin or scrotum. It is more common in men. But, women can get this hernia, too. Femoral. This type is in the groin, upper thigh (where the leg bends), or labia. It is more common in women. Ventral. This type is in the abdominal wall. Umbilical. This type occurs around the navel (belly button). Incisional. This type occurs at the site of a previous surgery. The condition of the hernia can help determine how urgently it needs to be treated. Reducible. It goes back in by itself, or it can be pushed back in. Irreducible. It can t be pushed back in. Incarcerated/strangulated. The intestine is trapped (incarcerated). If this happens, you won t be able to push the bulge back in. If the incarcerated hernia isn t treated, it may become strangulated.This means the area loses blood supply and the tissue may . This requires emergency surgery. Youneed treatment right away. In most cases, a hernia will not heal on its own.You may need surgery to repair the defect in the abdominal wall or groin. You ll be told more about surgery, if needed. If your symptoms are not severe, treatment may sometimes be delayed. In such cases, you will need regular follow-up visits with the provider. You ll be asked to keep track of your symptoms and to watch for signs of more serious problems. You may also be given guidelines similar to the home care instructions below. Home care To help keep a hernia from getting worse, you may be advised to: Avoid heavy lifting and straining as directed. Take steps to prevent constipation, such as eating more fiber and drinking more water. This may help reduce straining that can occur when having a bowel movement. Reducing straining may help keep your symptoms from getting worse. Maintain a healthy weight or lose excess weight. This can help reduce strain on abdominal muscles and tissues. Stop smoking. This can help prevent coughing that may also strain abdominal muscles and tissues. Follow-up care Follow up with your healthcare provider, or as directed. If imaging tests were done, they will be reviewed a doctor. You will be told the results and any new findings that may affect your care. When to seek medical advice Call your healthcare provider right away if any of these occur: Hernia hardens, swells, or grows larger Hernia can no longer be pushed back in Pain moves to the lower right abdomen (just below the waistline), or spreads to the back Call 911 Call 911 if any of these occur: Severe pain, redness, or tenderness in the area near the hernia Pain worsens quickly and doesn t get better Inability to have a bowel movement or pass gas Fever of 100.4 F (38 C) or higher, or as directed by your healthcare provider [id number] [employer] [address] [place] [address]. All rights reserved. This information is not intended as a substitute for professional medical care. Always follow yourhealthcare professional's instructions. 05/31/2022 23:54:36 Hematoma Hematoma A hematoma is a collection of blood trapped outside of a blood vessel. It is what we think of as a bruise or a contusion. It is usually seen under the skin as a black and blue spot on your arm or leg, or a bump on your head after an injury. It can be almost anywhere on or in your body. It can also occur in an internal organ where it can be more serious. A hematoma is caused by an injury with damage to small blood vessels. This causes blood to leak into the tissues. Blood forms a pocket under the skin that swells and looks like a purplish patch. Hematomas sometimes form under the skin from bleeding during childbirth and can be particularly serious.Another serious form of hematoma forms after a fall on the head, called a subdural hematoma. Gradually the blood in the hematoma is absorbed back into the body. The swelling and pain of the hematoma will go away. This takes from 1 to 4 weeks, depending on the size of the hematoma. The skin over the hematoma may turn bluish then brown and yellow as the blood is dissolved and absorbed. Usually, this only takes a couple of weeks but can last months. Home care Limit motion of the joints near the hematoma. If the hematoma is large and painful, avoid sports and other vigorous physical activity until the swelling and pain goes away. Apply an ice pack (ice cubes in a plastic bag, or a frozen bag of peas, wrapped in a thin towel) over the injured area for 20 minutes every 1 to 2 hours the first day. Continue with ice packs 3 to 4 times a day for the next 2 days. Continue the use of ice packs for relief of pain and swelling as needed. If you need anything for pain, you can take acetaminophen, unless you were given a different pain medicine to use. Talk with your healthcare provider before using this medicine if you have chronic liver or kidney disease. Also talk with your healthcare provider if you have had a stomach ulcer or digestive tract bleeding, or are taking blood-thinner medicines. Follow-up care Follow up with your healthcare provider, or as advised. If X-rays or a CT scan were done, you will be notified if there is a change in the reading, especially if it affects treatment. When to seek medical advice Call your healthcare provider right away if any of the following occur: Redness around the hematoma Increase in pain or warmth in the hematoma Increase in size of the hematoma Fever of 100.4 F (38 C) or higher, or as directed by your healthcare provider If the hematoma is on the arm or leg, watch for: oIncreased swelling or pain in the extremity oNumbness or tingling or blue color of the hand or foot [phone] [employer] [address] [place] [address], [place] [address]. All rights reserved. This information is not intended as a substitute for professional medical care. Always follow yourhealthcare professional's instructions. Follow Up Care 05/31/2022 21:06:21 With:AARON DUQUE Address: [address] [place] [address]- [phone] Business (1) When:3-7 days Comments:Schedule appointment for follow-up.Use Tylenol or Motrin for pain as needed.Use Tynan as prescribedfor severe pain as needed.Return to the ED if symptoms worsen. [facility] Col[facility] 12-17-2022 Note Discharge Instructions Thank you for allowing [facility] to assist you with your healthcare needs. The following is importantdischarge information regarding your hospital visit. Diagnosis from Today's Visit Hernia Umbilical hernia What to Do Next Instructions from Your Care Team No qualifying data available. Post Acute Orders No qualifying data available. You Need to Schedule the Following Appointments Follow Up with AARON DUQUE When Within 3-7 days Why: Schedule appointment for follow-up. Use Tylenol or Motrin for pain as needed. Use Tynan as prescribed for severe pain as needed. Return to the ED if symptoms worsen. Where: [address] [facility] [address] [facility] [place] [address]- [phone] Business (1) Allergies Keflex Keppra (Rash) Tape, Paper (Rash) morphine (Rash) naproxen Medications Please ask your primary doctor or pharmacist before taking any other medication not listed, including over the counter drugs, herbal medications, vitamins and or supplements as they may interact withyour home medications. What How Much When Why Instructions Last Dose New acetaminophen-hydrocodone (Tynan 325- 5 mg oral tablet) 1 tab(s) by mouth Every 6 hours as needed for As needed for severe pain Umbilical hernia Duration: 3 Days Printed Prescription Unchanged carBAMazepine (TEGretol 200 mg oral tablet) 3 tab(s) by mouth Two (2) times a day Seizure Post-operative state s/p umbilical hernia repair, possible seizure following surgery Unchanged carBAMazepine (TEGretol) 600 Milligram by mouth Two (2) times a day Please take this list to your next doctor s visit. Bring all medications you take, including over the counter medications, herbals and other supplements with you to your doctor s visit. Patients and families are reminded to discard old lists and to update any records with all medication providers or retail pharmacies. Education Materials Hernia (Adult) A hernia can happen when there is a weakness or defect in the wall of the abdomen or groin. Intestines or nearby tissues may move from their usual location and push through the weakness in the wall. This can cause a hernia (bulge) you may see or feel. Causes and risk factors A hernia may be present at . Or it may be caused by the wear and tear of daily living. Certainfactors can make a hernia more likely. These can include: Heavy lifting Straining, whether from lifting, movement, or constipation Chronic cough Injury to the abdominal wall Excess weight Prior surgery Older age Family history of hernia Symptoms Symptoms of a hernia may come on suddenly. Or they may appear slowly over time. Some common symptoms include: Bulge in the groin area, around the navel, or in the scrotum (the bulge may get bigger when you stand and go away when you lie down) Pain or pressure around the bulge Pain during activities such as lifting, coughing, or sneezing A feeling of weakness or pressure in the groin Pain or swelling in the scrotum Types of hernias There are different types of hernia. The type you have depends on its location: Inguinal. This type is in the groin or scrotum. It is more common in men. But, women can get this hernia, too. Femoral. This type is in the groin, upper thigh (where the leg bends), or labia. It is more common in women. Ventral. This type is in the abdominal wall. Umbilical. This type occurs around the navel (belly button). Incisional. This type occurs at the site of a previous surgery. The condition of the hernia can help determine how urgently it needs to be treated. Reducible. It goes back in by itself, or it can be pushed back in. Irreducible. It can t be pushed back in. Incarcerated/strangulated. The intestine is trapped (incarcerated). If this happens, you won t be able to push the bulge back in. If the incarcerated hernia isn t treated, it may become strangulated.This means the area loses blood supply and the tissue may . This requires emergency surgery. Youneed treatment right away. In most cases, a hernia will not heal on its own.You may need surgery to repair the defect in the abdominal wall or groin. You ll be told more about surgery, if needed. If your symptoms are not severe, treatment may sometimes be delayed. In such cases, you will need regular follow-up visits with the provider. You ll be asked to keep track of your symptoms and to watch for signs of more serious problems. You may also be given guidelines similar to the home care instructions below. Home care To help keep a hernia from getting worse, you may be advised to: Avoid heavy lifting and straining as directed. Take steps to prevent constipation, such as eating more fiber and drinking more water. This may help reduce straining that can occur when having a bowel movement. Reducing straining may help keep your symptoms from getting worse. Maintain a healthy weight or lose excess weight. This can help reduce strain on abdominal muscles and tissues. Stop smoking. This can help prevent coughing that may also strain abdominal muscles and tissues. Follow-up care Follow up with your healthcare provider, or as directed. If imaging tests were done, they will be reviewed a doctor. You will be told the results and any new findings that may affect your care. When to seek medical advice Call your healthcare provider right away if any of these occur: Hernia hardens, swells, or grows larger Hernia can no longer be pushed back in Pain moves to the lower right abdomen (just below the waistline), or spreads to the back Call 911 Call 911 if any of these occur: Severe pain, redness, or tenderness in the area near the hernia Pain worsens quickly and doesn t get better Inability to have a bowel movement or pass gas Fever of 100.4 F (38 C) or higher, or as directed by your healthcare provider [id number] [employer]. [address] [place] [address]. All rights reserved. This information is not intended as a substitute for professional medical care. Always follow yourhealthcare professional's instructions. Hematoma A hematoma is a collection of blood trapped outside of a blood vessel. It is what we think of as a bruise or a contusion. It is usually seen under the skin as a black and blue spot on your arm or leg, or a bump on your head after an injury. It can be almost anywhere on or in your body. It can also occur in an internal organ where it can be more serious. A hematoma is caused by an injury with damage to small blood vessels. This causes blood to leak into the tissues. Blood forms a pocket under the skin that swells and looks like a purplish patch. Hematomas sometimes form under the skin from bleeding during childbirth and can be particularly serious.Another serious form of hematoma forms after a fall on the head, called a subdural hematoma. Gradually the blood in the hematoma is absorbed back into the body. The swelling and pain of the hematoma will go away. This takes from 1 to 4 weeks, depending on the size of the hematoma. The skin over the hematoma may turn bluish then brown and yellow as the blood is dissolved and absorbed. Usually, this only takes a couple of weeks but can last months. Home care Limit motion of the joints near the hematoma. If the hematoma is large and painful, avoid sports and other vigorous physical activity until the swelling and pain goes away. Apply an ice pack (ice cubes in a plastic bag, or a frozen bag of peas, wrapped in a thin towel) over the injured area for 20 minutes every 1 to 2 hours the first day. Continue with ice packs 3 to 4 times a day for the next 2 days. Continue the use of ice packs for relief of pain and swelling as needed. If you need anything for pain, you can take acetaminophen, unless you were given a different pain medicine to use. Talk with your healthcare provider before using this medicine if you have chronic liver or kidney disease. Also talk with your healthcare provider if you have had a stomach ulcer or digestive tract bleeding, or are taking blood-thinner medicines. Follow-up care Follow up with your healthcare provider, or as advised. If X-rays or a CT scan were done, you will be notified if there is a change in the reading, especially if it affects treatment. When to seek medical advice Call your healthcare provider right away if any of the following occur: Redness around the hematoma Increase in pain or warmth in the hematoma Increase in size of the hematoma Fever of 100.4 F (38 C) or higher, or as directed by your healthcare provider If the hematoma is on the arm or leg, watch for: oIncreased swelling or pain in the extremity oNumbness or tingling or blue color of the hand or foot [id number] [employer] [address] [place] [address], [place] [address]. All rights reserved. This information is not intended as a substitute for professional medical care. Always follow yourhealthcare professional's instructions. Additional Information VACCINATE! IT SAVES LIVES! Members of the community who have not yet received the COVID-19 vaccine and would like to receive it can visit one of [facility] vaccine clinics. There are many vaccine clinic locations within the [facility]. For locations and available times, please visit [email or web address]. It is important to note that some COVID mobile vaccine clinics are held outdoors and may be canceled in rainy orstormy conditions. To learn more about pediatric vaccinations (ages 5-11), we invite you to visit the [facility] webpage. [email or web address]/[email or web address] [email or web address].htmlTo learn more about the COVID-19 vaccine, we invite you to visit the [facility] website for a list of frequently asked questions. [email or web address] _[email or web address] [facility] [employer] Patient Portal Access Instructions: Stay connected with your healthcare team and access your personal medical information anytime with the [facility] Patient Portal. If you would like a full copy of your medical records please contact the [facility] Medical Records Department Friday through Friday between 8a.m. and 4:30p.m. Please follow the directions below to access the portal: 1.Access the email account you provided upon registration to the hospital.2.Look for an invitation email from [facility].3.Open the email and access the invitation link: Accept Invitation to [facility]4.Fill in the required vegas to create your account. Sign into [email or web address] with your username and password that you created in the above steps to stay up to date. You can then view a summary of results, a summary of your visits, and the ability to download your summaries to your computer or send the information securely to a physician. Remember that your healthcare information is confidential, so carefully consider who you will allow to register on the [facility] Patient Portal for access to your information. You can also access the [facility] Patient Portal on the [employer] yen. Simply click on Health Records under [employer] and then click on the [employer] logo. HOW TO SAFELY DISPOSE OF PRESCRIPTION MEDICATIONS Please use one of the following methods to safely dispose of your unused medications. 1.Use a drug disposal kit: the drug disposal pouch allows you to safely discard your old and unuseddrugs. Ask your nurse to give you one when you are discharged.2.Visit a local take-back location: Many local pharmacies and police departments have programs that collect old and unwanted prescriptiondrugs. Call your local pharmacy or go to http://Jiberish.Zenefits/4Y3Cm0e to find one close to you.3.Make use of household items: Use cat litter or old coffee grounds to dispose medications if other options arenot available. Mix your drugs with these household products, seal them in an airtight container andthrow it into the garbage. Call [facility]: [phone] to be sure your drugs can be disposed of in this way. Some medicines may require a different approach.4.Never flush your medications down the toilet. IF YOU HAVE BEEN PRESCRIBED AN OPIOIDS FOR PAIN If you have been prescribed an opioid (such as hydrocodone, oxycodone or morphine), it is critical to understand the possible side effects and risks of opioid pain medications. Even when taken as directed, opioids can have several side effects including: Tolerance, meaning you might need to take more of a medication for the same pain relief. Nausea, vomiting and/or constipation. Sleepiness, dizziness, dry mouth, confusion, depression or itching. Physical dependence, meaning you have withdrawal symptoms when a medication is stopped ? this can develop within a few days. KNOW YOUR RESPONSIBILITIES It is important to know exactly how much and how often to take the opioid pain medications you are prescribed. Never take opioids in higher amounts or more often than prescribed. Do not combine opioids with alcohol or other drugs that cause drowsiness, such as benzodiazepines, also known as benzos,including diazepam and alprazolam, muscle relaxants or sleep aids. Never sell or share prescriptionopioids. This is illegal. Store opioids in a secure place and out of reach of others (including children, family, friends and visitors). The last page(s) of this document has been signed and retained as a CHART COPY Signatures Patient Education Materials Hernia (Adult) Hematoma Medication Leaflets My discharge plan and instructions have been reviewed and explained to me and I,PATRICK KOROMA understand my current condition and have read and understand these discharge instructions. I have received a written copy of the plan/instructions. If I have questions, I am aware that I should contact my doctor. Patient/Mica Miner Signature: Date/Time: Relationship to Patient: Witness Name/Signature: Date/Time: [facility]12-17-2022 Note ORIGINAL EXAMINATION: CT OF THE ABDOMEN AND PELVIS WITH CONTRAST 05/31/2022 11:40 pm TECHNIQUE: CT of the abdomen and pelvis was performed with the administration of intravenous contrast. Multiplanar reformatted images are provided for review. Automated exposure control, iterative reconstruction, and/or weight based adjustment of the mA/kV was utilized to reduce the radiation dose to as low as reasonably achievable. COMPARISON: CT abdomen pelvis 12/21/2021 HISTORY: ORDERING SYSTEM PROVIDED HISTORY: Reason for Exam: Periumbilical pain and swelling, s/p umbilical hernia repair 12/05. FINDINGS: The lung bases are clear. The heart is normal in size. The gallbladder, liver, spleen, adrenal glands, pancreas, bilateral kidneys, bladder and prostate gland are within normal limits. Subcentimeter left upper pole hypodense lesions are too small to be characterized but are stable since prior exam. No free fluid in the pelvis. Bilateral small fat containing inguinal hernias. The small and large bowel is normal in caliber. The appendix is surgically absent. No free air. The aorta is mildly atherosclerotic but nonaneurysmal. No lymphadenopathy. There is a ventral abdominal wall fluid collection at the level of the umbilicus which measures fluid density most likely representing a seroma. This collection measures up to 5.8 cm, previously 12.8 cm. There continues to be a small fat containing umbilical hernia. No acute osseous abnormality. Mild degenerative changes of the visualized spine. IMPRESSION: Ventral abdominal wall collection at the level of the umbilicus has significantly decreased in size and is favored to represent a seroma or evolving hematoma. Small fat containing umbilical hernia. I have personally reviewed the images of this examination and agree with the resident's findings and interpretation. Interpreted by: Rochelle Hinkle MD Preliminary Report By: Isidro Duque Electronically signed By Rochelle Hinkle MD Dictated Date: 05/31/2022 11:41:35 PM Prelim Date: 05/31/2022 11:50:02 PM Sign Date: 06/01/2022 12:00:43 AM Ordering Provider: YARA [facility]12-16-2022 Note ORIGINAL EXAMINATION: CT OF THE ABDOMEN AND PELVIS WITH CONTRAST 05/31/2022 11:40 pm TECHNIQUE: CT of the abdomen and pelvis was performed with the administration of intravenous contrast. Multiplanar reformatted images are provided for review. Automated exposure control, iterative reconstruction, and/or weight based adjustment of the mA/kV was utilized to reduce the radiation dose to as low as reasonably achievable. COMPARISON: CT abdomen pelvis 12/21/2021 HISTORY: ORDERING SYSTEM PROVIDED HISTORY: Reason for Exam: Periumbilical pain and swelling, s/p umbilical hernia repair 12/05. FINDINGS: The lung bases are clear. The heart is normal in size. The gallbladder, liver, spleen, adrenal glands, pancreas, bilateral kidneys, bladder and prostate gland are within normal limits. Subcentimeter left upper pole hypodense lesions are too small to be characterized but are stable since prior exam. No free fluid in the pelvis. Bilateral small fat containing inguinal hernias. The small and large bowel is normal in caliber. The appendix is surgically absent. No free air. The aorta is mildly atherosclerotic but nonaneurysmal. No lymphadenopathy. There is a ventral abdominal wall fluid collection at the level of the umbilicus which measures fluid density most likely representing a seroma. This collection measures up to 5.8 cm, previously 12.8 cm. There continues to be a small fat containing umbilical hernia. No acute osseous abnormality. Mild degenerative changes of the visualized spine. IMPRESSION: Ventral abdominal wall collection at the level of the umbilicus has significantly decreased in size and is favored to represent a seroma or evolving hematoma. Small fat containing umbilical hernia. I have personally reviewed the images of this examination and agree with the resident's findings and interpretation. Interpreted by: Rochelle Hinkle MD Preliminary Report By: Isidro Duque Electronically signed By Rochelle Hinkle MD Dictated Date: 05/31/2022 11:41:35 PM Prelim Date: 05/31/2022 11:50:02 PM Sign Date: 06/01/2022 12:00:43 AM Ordering Provider: YARA [facility]12-12-2022 Hospital Discharge instructions Patient Education 05/27/2022 18:12:09 Adult Self-Care for Colds and Flu Adult Self-Care for Colds Colds are caused by viruses. They can t be cured with antibiotics. However, you can relieve symptoms and support your body s efforts to heal itself. No matter which symptoms you have, be sure to drink plenty of fluids (water or clear soup); stop smoking and drinking alcohol; and get plenty of rest. Understand a fever Take your temperature several times a day. If your fever is 100.4 F (38.0 C) for more than a day, call your doctor. Relax, lie down. Go to bed if you want. Just get off your feet and rest. Also, drink plenty of fluids to avoid dehydration. Take acetaminophen or a nonsteroidal anti-inflammatory agent (NSAID), such as ibuprofen. Treat a troubled nose kindly Breathe steam or heated humidified air to open blocked nasal passages. welding robot operator a hot shower or usea vaporizer. Be careful not to get burned by the steam. Saline nasal sprays and decongestant tablets help open a stuffy nose. Antihistamines can also help,but they can cause side effects such as drowsiness and drying of the eyes, nose, and mouth. Soothe a sore throat and cough Gargle every 2 hours with 1/4 teaspoon of salt dissolved in 1/2 cup of warm water. Suck on throat lozenges and cough drops to moisten your throat. Cough medicines are available but it is unclear how effective they actually are. Take acetaminophen or an NSAID, such as ibuprofen to ease throat pain Ease digestive problems Put fluid back into your body. Take frequent sips of clear liquids such as water or broth. Do not drink beverages with a lot of sugar in them, such as juices and sodas. These can make diarrhea worse.Older children and adults can drink sports drinks. As your appetite returns, you can resume your normal diet. Ask your doctor whether there are any foods you should avoid. When to seek medical care When you first notice symptoms, ask your health care provider if antiviral medications are appropriate. Antibiotics should not be taken for colds or flu. Also, call your doctor if you have any of the following symptoms or if you aren t feeling better after 7 days: Shortness of breath Pain or pressure in the chest or abdomen Worsening symptoms, especially after a period of improvement Fever of 100.4 F (38.0 C) or higher, or fever that doesn t go down with medication Sudden dizziness or confusion Severe or continued vomiting Signs of dehydration, including extreme thirst, dark urine, infrequent urination, dry mouth Spotted, red, or very sore throat [id number] [employer] [place] [address]. All rights reserved. This information is not intended as a substitute for professional medical care. Always follow yourhealthcare professional's instructions. Follow Up Care 05/27/2022 17:56:54 With:Go to emergency room if symptoms worsen Address:Unknown When:2-4 days With:Call Physician Referral Address:Unknown When:2-4 days [facility] 12-12-2022 Note ORIGINAL EXAMINATION: ONE XRAY VIEW OF THE CHEST 05/27/2022 6:46 pm COMPARISON: Chest x-ray 09/08/2013 HISTORY: ORDERING SYSTEM PROVIDED HISTORY: Reason for Exam: Shortness of breath, cough FINDINGS: The heart is normal in size. No acute consolidation, pleural effusion, vascular congestion or pneumothorax. Hazy density overlying the left lower lung most likely reflects overlapping soft tissue. No acute osseous abnormality. IMPRESSION: No acute radiographic process. I have personally reviewed the images of this examination and agree with the resident's findings and interpretation. Interpreted by: Rochelle Hinkle MD Preliminary Report By: Isidro Duque Electronically signed By Rochelle Hinkle MD Dictated Date: 05/27/2022 7:09:36 PM Prelim Date: 05/27/2022 7:10:37 PM Sign Date: 05/27/2022 7:25:51 PM Ordering Provider: LEORA KHAN [facility]12-12-2022 Note Discharge Instructions Thank you for allowing [facility] to assist you with your healthcare needs. The following is importantdischarge information regarding your hospital visit. Diagnosis from Today's Visit Cough URTI - Viral upper respiratory tract infection Medical screening exam What to Do Next Instructions from Your Care Team No qualifying data available. Post Acute Orders No qualifying data available. You Need to Schedule the Following Appointments Follow Up with Go to emergency room if symptoms worsen When Within 2-4 days Follow Up with Call Physician Referral When Within 2-4 days Allergies Keflex Keppra (Rash) Tape, Paper (Rash) morphine (Rash) naproxen Medications Please ask your primary doctor or pharmacist before taking any other medication not listed, including over the counter drugs, herbal medications, vitamins and or supplements as they may interact withyour home medications. What How Much When Why Instructions Last Dose Unchanged carBAMazepine (TEGretol 200 mg oral tablet) 3 tab(s) by mouth Two (2) times a day Seizure Post-operative state s/p umbilical hernia repair, possible seizure following surgery Unchanged carBAMazepine (TEGretol) 600 Milligram by mouth Two (2) times a day Please take this list to your next doctor s visit. Bring all medications you take, including over the counter medications, herbals and other supplements with you to your doctor s visit. Patients and families are reminded to discard old lists and to update any records with all medication providers or retail pharmacies. Education Materials Adult Self-Care for Colds Colds are caused by viruses. They can t be cured with antibiotics. However, you can relieve symptoms and support your body s efforts to heal itself. No matter which symptoms you have, be sure to drink plenty of fluids (water or clear soup); stop smoking and drinking alcohol; and get plenty of rest. Understand a fever Take your temperature several times a day. If your fever is 100.4 F (38.0 C) for more than a day, call your doctor. Relax, lie down. Go to bed if you want. Just get off your feet and rest. Also, drink plenty of fluids to avoid dehydration. Take acetaminophen or a nonsteroidal anti-inflammatory agent (NSAID), such as ibuprofen. Treat a troubled nose kindly Breathe steam or heated humidified air to open blocked nasal passages. welding robot operator a hot shower or usea vaporizer. Be careful not to get burned by the steam. Saline nasal sprays and decongestant tablets help open a stuffy nose. Antihistamines can also help,but they can cause side effects such as drowsiness and drying of the eyes, nose, and mouth. Soothe a sore throat and cough Gargle every 2 hours with 1/4 teaspoon of salt dissolved in 1/2 cup of warm water. Suck on throat lozenges and cough drops to moisten your throat. Cough medicines are available but it is unclear how effective they actually are. Take acetaminophen or an NSAID, such as ibuprofen to ease throat pain Ease digestive problems Put fluid back into your body. Take frequent sips of clear liquids such as water or broth. Do not drink beverages with a lot of sugar in them, such as juices and sodas. These can make diarrhea worse.Older children and adults can drink sports drinks. As your appetite returns, you can resume your normal diet. Ask your doctor whether there are any foods you should avoid. When to seek medical care When you first notice symptoms, ask your health care provider if antiviral medications are appropriate. Antibiotics should not be taken for colds or flu. Also, call your doctor if you have any of the following symptoms or if you aren t feeling better after 7 days: Shortness of breath Pain or pressure in the chest or abdomen Worsening symptoms, especially after a period of improvement Fever of 100.4 F (38.0 C) or higher, or fever that doesn t go down with medication Sudden dizziness or confusion Severe or continued vomiting Signs of dehydration, including extreme thirst, dark urine, infrequent urination, dry mouth Spotted, red, or very sore throat [id number] [employer] [address] [place] [address]. All rights reserved. This information is not intended as a substitute for professional medical care. Always follow yourhealthcare professional's instructions. Additional Information VACCINATE! IT SAVES LIVES! Members of the community who have not yet received the COVID-19 vaccine and would like to receive it can visit one of [facility] vaccine clinics. There are many vaccine clinic locations within the [facility]. For locations and available times, please visit [email or web address]. It is important to note that some COVID mobile vaccine clinics are held outdoors and may be canceled in rainy orstormy conditions. To learn more about pediatric vaccinations (ages 5-11), we invite you to visit the [facility] webpage. [email or web address]/[email or web address] [email or web address].htmlTo learn more about the COVID-19 vaccine, we invite you to visit the [facility] website for a list of frequently asked questions. [email or web address] [facility] [employer] Patient Portal Access Instructions: Stay connected with your healthcare team and access your personal medical information anytime with the [facility] Patient Portal. If you would like a full copy of your medical records please contact the [facility] Medical Records Department Friday through Friday between 8a.m. and 4:30p.m. Please follow the directions below to access the portal: 1.Access the email account you provided upon registration to the [facility].2.Look for an invitation email from [facility].3.Open the email and access the invitation link: Accept Invitation to [facility]4.Fill in the required vegas to create your account. Sign into [email or web address] with your username and password that you created in the above steps to stay up to date. You can then view a summary of results, a summary of your visits, and the ability to download your summaries to your computer or send the information securely to a physician. Remember that your healthcare information is confidential, so carefully consider who you will allow to register on the [facility] Patient Portal for access to your information. You can also access the [facility] Patient Portal on the [employer] yen. Simply click on Health Records under [employer] and then click on the [facility] logo. HOW TO SAFELY DISPOSE OF PRESCRIPTION MEDICATIONS Please use one of the following methods to safely dispose of your unused medications. 1.Use a drug disposal kit: the drug disposal pouch allows you to safely discard your old and unuseddrugs. Ask your nurse to give you one when you are discharged.2.Visit a local take-back location: Many local pharmacies and police departments have programs that collect old and unwanted prescriptiondrugs. Call your local pharmacy or go to http://Jiberish.Zenefits/8F5Kr5p to find one close to you.3.Make use of household items: Use cat litter or old coffee grounds to dispose medications if other options arenot available. Mix your drugs with these household products, seal them in an airtight container andthrow it into the garbage. Call [facility]: [phone] to be sure your drugs can be disposed of in this way. Some medicines may require a different approach.4.Never flush your medications down the toilet. IF YOU HAVE BEEN PRESCRIBED AN OPIOIDS FOR PAIN If you have been prescribed an opioid (such as hydrocodone, oxycodone or morphine), it is critical to understand the possible side effects and risks of opioid pain medications. Even when taken as directed, opioids can have several side effects including: Tolerance, meaning you might need to take more of a medication for the same pain relief. Nausea, vomiting and/or constipation. Sleepiness, dizziness, dry mouth, confusion, depression or itching. Physical dependence, meaning you have withdrawal symptoms when a medication is stopped ? this can develop within a few days. KNOW YOUR RESPONSIBILITIES It is important to know exactly how much and how often to take the opioid pain medications you are prescribed. Never take opioids in higher amounts or more often than prescribed. Do not combine opioids with alcohol or other drugs that cause drowsiness, such as benzodiazepines, also known as benzos,including diazepam and alprazolam, muscle relaxants or sleep aids. Never sell or share prescriptionopioids. This is illegal. Store opioids in a secure place and out of reach of others (including children, family, friends and visitors). The last page(s) of this document has been signed and retained as a CHART COPY Signatures Patient Education Materials Adult Self-Care for Colds and Flu Medication Leaflets My discharge plan and instructions have been reviewed and explained to me and I,PATRICK KOROMA understand my current condition and have read and understand these discharge instructions. I have received a written copy of the plan/instructions. If I have questions, I am aware that I should contact my doctor. Patient/Mica Miner Signature: Date/Time: Relationship to Patient: Witness Name/Signature: Date/Time: [facility]12-12-2022 Note ORIGINAL EXAMINATION: ONE XRAY VIEW OF THE CHEST 05/27/2022 6:46 pm COMPARISON: Chest x-ray 09/08/2013 HISTORY: ORDERING SYSTEM PROVIDED HISTORY: Reason for Exam: Shortness of breath, cough FINDINGS: The heart is normal in size. No acute consolidation, pleural effusion, vascular congestion or pneumothorax. Hazy density overlying the left lower lung most likely reflects overlapping soft tissue. No acute osseous abnormality. IMPRESSION: No acute radiographic process. I have personally reviewed the images of this examination and agree with the resident's findings and interpretation. Interpreted by: Rochelle Hinkle MD Preliminary Report By: Isidro Duque Electronically signed By Rochelle Hinkle MD Dictated Date: 05/27/2022 7:09:36 PM Prelim Date: 05/27/2022 7:10:37 PM Sign Date: 05/27/2022 7:25:51 PM Ordering Provider: LEORA [facility]09-30-2022 Hospital Discharge instructions Patient Education 03/15/2022 00:01:33 Head Injury (Adult) Head Injury (Adult) You have a head injury. It does not appear serious at this time. But symptoms of a more serious problem, such as a mild brain injury (concussion) or bruising or bleeding in the brain, may appear later. For this reason, you or someone caring for you will need to watch for the symptoms listed below. Once you re home, also be sure to follow any care instructions you re given. Home care Watch for the following symptoms Seek emergency medical care if you have any of these symptoms over the next hours to days: Headache Nausea or vomiting Dizziness Sensitivity to light or noise Unusual sleepiness or grogginess Trouble falling asleep Personality changes Vision changes Memory loss Confusion Trouble walking or clumsiness Loss of consciousness (even for a short time) Inability to be awakened Stiff neck Weakness or numbness in any part of the body Seizures General care If you were prescribed medicines for pain, use them as directed. Note: Don t take other medicines for pain without talking to your provider first. To help reduce swelling and pain, apply a cold source to the injured area for up to 20 minutes at atime. Do this as often as directed. Use a cold pack or bag of ice wrapped in a thin towel. Never apply a cold source directly to the skin. If you have cuts or scrapes as a result of your head injury, care for them as directed. For the next 24 hours (or longer, if instructed): oDon t drink alcohol or use sedatives or other medicines that make you sleepy. oDon t drive or operate machinery. oDon t do anything strenuous, such as heavy lifting or straining. oLimit tasks that require concentration. This includes reading, using a smartphone or computer, watching TV, and playing video games. oDon t return to sports or other activities that could result in another head injury. Follow-up care Follow up with your healthcare provider, or as directed. If imaging tests were done, they will be reviewed by a doctor. You will be told the results and any new findings that may affect your care. When to seek medical advice Call your healthcare provider right away if any of these occur: Pain doesn t get better or worsens New or increased swelling or bruising Fever of 100.4 F (38 C) or higher, or as directed by your provider Increased redness, warmth, drainage, or bleeding from the injured area Fluid drainage or bleeding from the nose or ears Any depression or bony abnormality in the injured area Persistent confusion or lethargy Bruising behind the ears or bruising around the eyes [id number] [employer] [place] [address]. All rights reserved. This information is not intended as a substitute for professional medical care. Always follow yourhealthcare professional's instructions. Follow Up Care 03/14/2022 22:45:58 With:RHONDA ERICKSON Address: [address] [place] [address]- [phone] Business (1) When:2-4 days With:Call Physician Referral Address:Unknown [facility]2-[facility] days [facility] Note Discharge Instructions Thank you for allowing [facility] to assist you with your healthcare needs. The following is importantdischarge information regarding your hospital visit. Diagnosis from Today's Visit Headache What to Do Next Instructions from Your Care Team No qualifying data available. Post Acute Orders No qualifying data available. You Need to Schedule the Following Appointments Follow Up with RHONDA ERICKSON When Within 2-4 days Where: [address] [facility] [place] [address] [phone] Business (1) Follow Up with Call Physician Referral When Within 2-4 days Allergies Keflex Keppra (Rash) Tape, Paper (Rash) morphine (Rash) naproxen Medications Please ask your primary doctor or pharmacist before taking any other medication not listed, including over the counter drugs, herbal medications, vitamins and or supplements as they may interact withyour home medications. What How Much When Why Instructions Last Dose Unchanged carBAMazepine (TEGretol 200 mg oral tablet) 3 tab(s) by mouth Two (2) times a day Seizure Post-operative state s/p umbilical hernia repair, possible seizure following surgery Unchanged carBAMazepine (TEGretol) 600 Milligram by mouth Two (2) times a day Please take this list to your next doctor s visit. Bring all medications you take, including over the counter medications, herbals and other supplements with you to your doctor s visit. Patients and families are reminded to discard old lists and to update any records with all medication providers or retail pharmacies. Education Materials Head Injury (Adult) You have a head injury. It does not appear serious at this time. But symptoms of a more serious problem, such as a mild brain injury (concussion) or bruising or bleeding in the brain, may appear later. For this reason, you or someone caring for you will need to watch for the symptoms listed below. Once you re home, also be sure to follow any care instructions you re given. Home care Watch for the following symptoms Seek emergency medical care if you have any of these symptoms over the next hours to days: Headache Nausea or vomiting Dizziness Sensitivity to light or noise Unusual sleepiness or grogginess Trouble falling asleep Personality changes Vision changes Memory loss Confusion Trouble walking or clumsiness Loss of consciousness (even for a short time) Inability to be awakened Stiff neck Weakness or numbness in any part of the body Seizures General care If you were prescribed medicines for pain, use them as directed. Note: Don t take other medicines for pain without talking to your provider first. To help reduce swelling and pain, apply a cold source to the injured area for up to 20 minutes at atime. Do this as often as directed. Use a cold pack or bag of ice wrapped in a thin towel. Never apply a cold source directly to the skin. If you have cuts or scrapes as a result of your head injury, care for them as directed. For the next 24 hours (or longer, if instructed): oDon t drink alcohol or use sedatives or other medicines that make you sleepy. oDon t drive or operate machinery. oDon t do anything strenuous, such as heavy lifting or straining. oLimit tasks that require concentration. This includes reading, using a smartphone or computer, watching TV, and playing video games. oDon t return to sports or other activities that could result in another head injury. Follow-up care Follow up with your healthcare provider, or as directed. If imaging tests were done, they will be reviewed by a doctor. You will be told the results and any new findings that may affect your care. When to seek medical advice Call your healthcare provider right away if any of these occur: Pain doesn t get better or worsens New or increased swelling or bruising Fever of 100.4 F (38 C) or higher, or as directed by your provider Increased redness, warmth, drainage, or bleeding from the injured area Fluid drainage or bleeding from the nose or ears Any depression or bony abnormality in the injured area Persistent confusion or lethargy Bruising behind the ears or bruising around the eyes [id number] [employer]. [address] [place] [address], [place] [address]. All rights reserved. This information is not intended as a substitute for professional medical care. Always follow yourhealthcare professional's instructions. Additional Information VACCINATE! IT SAVES LIVES! Members of the community who have not yet received the COVID-19 vaccine and would like to receive it can visit one of [facility] vaccine clinics. There are many vaccine clinic locations within the [facility]. For locations and available times, please visit [email or web address]. It is important to note that some COVID mobile vaccine clinics are held outdoors and may be canceled in rainy orstormy conditions. To learn more about pediatric vaccinations (ages 5-11), we invite you to visit the [facility] webpage. [email or web address] learn more about the COVID-19 vaccine, we invite you to visit the [employer] website for a list of frequently asked questions. [email or web address] [facility] [employer] Patient Portal Access Instructions: Stay connected with your healthcare team and access your personal medical information anytime with the [facility] Patient Portal. If you would like a full copy of your medical records please contact the [facility] Medical Records Department Friday through Friday between 8a.m. and 4:30p.m. Please follow the directions below to access the portal: 1.Access the email account you provided upon registration to the hospital.2.Look for an invitation email from [facility].3.Open the email and access the invitation link: Accept Invitation to [facility]4.Fill in the required [place] to create your account. Sign into [email or web address] with your username and password that you created in the above steps to stay up to date. You can then view a summary of results, a summary of your visits, and the ability to download your summaries to your computer or send the information securely to a physician. Remember that your healthcare information is confidential, so carefully consider who you will allow to register on the [facility] Patient Portal for access to your information. You can also access the [facility] Patient Portal on the [employer] yen. Simply click on Health Records under [employer] and then click on the [employer] logo. HOW TO SAFELY DISPOSE OF PRESCRIPTION MEDICATIONS Please use one of the following methods to safely dispose of your unused medications. 1.Use a drug disposal kit: the drug disposal pouch allows you to safely discard your old and unuseddrugs. Ask your nurse to give you one when you are discharged.2.Visit a local take-back location: Many local pharmacies and police departments have programs that collect old and unwanted prescriptiondrugs. Call your local pharmacy or go to http://bit.Zenefits/2W1Qa3y to find one close to you.3.Make use of household items: Use cat litter or old coffee grounds to dispose medications if other options arenot available. Mix your drugs with these household products, seal them in an airtight container andthrow it into the garbage. Call [facility]: [phone] to be sure your drugs can be disposed of in this way. Some medicines may require a different approach.4.Never flush your medications down the toilet. IF YOU HAVE BEEN PRESCRIBED AN OPIOIDS FOR PAIN If you have been prescribed an opioid (such as hydrocodone, oxycodone or morphine), it is critical to understand the possible side effects and risks of opioid pain medications. Even when taken as directed, opioids can have several side effects including: Tolerance, meaning you might need to take more of a medication for the same pain relief. Nausea, vomiting and/or constipation. Sleepiness, dizziness, dry mouth, confusion, depression or itching. Physical dependence, meaning you have withdrawal symptoms when a medication is stopped ? this can develop within a few days. KNOW YOUR RESPONSIBILITIES It is important to know exactly how much and how often to take the opioid pain medications you are prescribed. Never take opioids in higher amounts or more often than prescribed. Do not combine opioids with alcohol or other drugs that cause drowsiness, such as benzodiazepines, also known as benzos,including diazepam and alprazolam, muscle relaxants or sleep aids. Never sell or share prescriptionopioids. This is illegal. Store opioids in a secure place and out of reach of others (including children, family, friends and visitors). The last page(s) of this document has been signed and retained as a CHART COPY Signatures Patient Education Materials Head Injury (Adult) Medication Leaflets My discharge plan and instructions have been reviewed and explained to me and I,PATRICK KOROMA understand my current condition and have read and understand these discharge instructions. I have received a written copy of the plan/instructions. If I have questions, I am aware that I should contact my doctor. Patient/Mica Miner Signature: Date/Time: Relationship to Patient: Witness Name/Signature: Date/Time: [facility]09-29-2022 Note ORIGINAL EXAMINATION: CT OF THE HEAD WITHOUT CONTRAST 03/14/2022 11:52 pm TECHNIQUE: CT of the head was performed without the administration of intravenous contrast. Automated exposure control, iterative reconstruction, and/or weight based adjustment of the mA/kV was utilized to reduce the radiation dose to as low as reasonably achievable. COMPARISON: CT head on 10/31/2016 chest HISTORY: ORDERING SYSTEM PROVIDED HISTORY: Reason for Exam: pain/headache FINDINGS: BRAIN/VENTRICLES: There is no acute intracranial hemorrhage, mass effect or midline shift. No abnormal extra-axial fluid collection. The pantoja-white differentiation is maintained without evidence of an acute infarct. There is no evidence of hydrocephalus. ORBITS: The visualized portion of the orbits demonstrate no acute abnormality. SINUSES: The visualized paranasal sinuses and mastoid air cells demonstrate no acute abnormality. SOFT TISSUES/SKULL: No acute abnormality of the visualized skull or soft tissues. IMPRESSION: No acute intracranial abnormality. Interpreted by: Milind Stephens MD Preliminary Report By: Milind Stephens MD Electronically signed By Milind Stephens MD Dictated Date: 03/14/2022 11:53:31 PM Prelim Date: 03/14/2022 11:55:41 PM Sign Date: 03/14/2022 11:55:41 PM Ordering Provider: JORGITO CANNON [facility]09-29-2022 Note ORIGINAL EXAMINATION: CT OF THE HEAD WITHOUT CONTRAST 03/14/2022 11:52 pm TECHNIQUE: CT of the head was performed without the administration of intravenous contrast. Automated exposure control, iterative reconstruction, and/or weight based adjustment of the mA/kV was utilized to reduce the radiation dose to as low as reasonably achievable. COMPARISON: CT head on 10/31/2016 chest HISTORY: ORDERING SYSTEM PROVIDED HISTORY: Reason for Exam: pain/headache FINDINGS: BRAIN/VENTRICLES: There is no acute intracranial hemorrhage, mass effect or midline shift. No abnormal extra-axial fluid collection. The pantoja-white differentiation is maintained without evidence of an acute infarct. There is no evidence of hydrocephalus. ORBITS: The visualized portion of the orbits demonstrate no acute abnormality. SINUSES: The visualized paranasal sinuses and mastoid air cells demonstrate no acute abnormality. SOFT TISSUES/SKULL: No acute abnormality of the visualized skull or soft tissues. IMPRESSION: No acute intracranial abnormality. Interpreted by: Milind Stephens MD Preliminary Report By: Milind Stephens MD Electronically signed By Milind Stephens MD Dictated Date: 03/14/2022 11:53:31 PM Prelim Date: 03/14/2022 11:55:41 PM Sign Date: 03/14/2022 11:55:41 PM Ordering Provider: [facility]09-23-2022 Hospital Discharge instructions* Discharge Instructions* Giles Maier DO - 03/08/2022 1:53 AM EDT Please return if you develop slurred speech, change in vision, difficulty swallowing or talking. Please return if develop weakness, numbness or loss of sensation in any of your extremities. Please take Tylenol, ibuprofen as needed for pain control. * Attachments The following attachments cannot be sent through Care Everywhere. * Head Injury: Closed: General Info (Jamaican) documented in this [facility] Work Phone: 1(481) 394-474807-21-2022 History of Present illness Narrative* Ibrahima Schaefer MD - 01/03/2022 12:16 PM EDT HISTORY AND PHYSICAL Patrick Koroma 1980 REFERRING PHYSICIAN: MD Saurabh CHIEF COMPLAINT: Consult HPI: The patient is a 41 year old male with a complaint of an enlarging fluid collection at the site of his previous laparoscopic hernia repair. The patient had had a previous apparently mesh umbilical hernia repair. On November 22, 2021 he presented for repair of a recurrent umbilical/ventral hernia. He underwent robotic assisted repair of his recurrent ventral hernia at [facility] performed by Dr. Aaron Duque. The operative report noted removal of prior mesh. Removal of the herniasac and then placement of an [address] mesh into the preperitoneal space. Therewas noted to be a ventral fascial defect with omentum present approximately 5 to 6 cm in size and that the previous place past had a defect at the inferior edge and had been easy to remove. Stated the hernia defect was primarily closed after the hernia sac was excised. She noted swelling at his periumbilical area after the surgical procedure. He had followed up with the surgeon who told him this was most likely hematoma and that he did not do any other maneuvers. The patient presented to [facility] emergency department on January 01 complaining of more discomfort and swelling at the site. He was seen in the emergency department he underwent a CT scan of the abdomen which demonstrated abdominal fluid collection measuring 12 x 10 cm. It was felt to be mixed density consistent with hematoma. 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 gabapentin (NEURONTIN) 300 mg capsule Take 1 capsule by mouth three times daily for 90 days. meloxicam (MOBIC) 15 mg tablet Take 1 tablet by mouth once daily. for pain. Take with food. (Patient not taking: Reported on 01/03/2022 ) methylPREDNISolone (MEDROL DOSE-PACK) 4 mg Dose-Pack As Instructed per package (Patient not taking:Reported on 01/03/2022 ) LORazepam (ATIVAN) 0.5 mg tab To take when he thinks he is going to have a seizure. (Patient not taking: Reported on 01/03/2022) No current facility-administered medications for this visit. ALLERGIES: Adhesive Tape-Silicones, Keflex [Cephalexin], Keppra [Levetiracetam], Morphine, and Naproxen PERSONAL HISTORY: Social History Tobacco Use Smoking status: Current Every Day Smoker Packs/day: 2.00 Smokeless tobacco: Never Used Vaping Use Vaping Use: Never used Substance Use Topics Alcohol use: No Drug use: Not Currently Comment: Quit in High school FAMILY HISTORY: History reviewed. No pertinent family history. REVIEW OF SYMPTOMS: The review of systems data was entered by the nurse and reviewed by az Nursing Notes: Charlie Mera RN 01/03/2022 11:28 AM Signed REVIEW OF SYSTEMS: General: The patient denies fatigue, denies weight loss, denies weight gain, denies feeling hot, and denies feelings of cold. Eyes: The patient denies glaucoma, denies eye injury/surgery, wears glasses or contacts. Ear/Nose/Throat: The patient denies allergies, denies hayfever, denies ear infections, and denies bloody noses. Cardiovascular: The patient denies chest pain, denies heart disease, denies high blood pressure,denies cardiac stent, denies prior heart attack, denies irregular heart beat, denies high cholesterol, denies poor circulation, denies heart failure, other cardiac issues, denies claudication, denies cold feet, denies peripheral arterial stent. Respiratory: The patient denies tuberculosis, denies pneumonia, denies frequent cough, denies pulmonary embolism, denies shortness of breath, and denies coughing up blood. Gastrointestinal: The patient denies difficulty swallowing, denies acid reflux, denies ulcers, denies vomiting, denies jaundice/hepatitis, denies gallbladder problems, denies black or tarry stools, denies hemorrhoids, denies bleeding from rectum, denies diverticulitis, denies constipation, denies diarrhea, denies loss of stool control, and NOTES hernias. Kidney/Bladder: The patient denies kidney stones, denies urine infections, and denies bloody urine. Skin: The patient denies a history of skin cancer, denies bleeding/changing moles, and denies a history of skin rash. Neurologic: The patient NOTES a history of epilepsy/convulsions, denies headaches, denies head/spinal injuries, and denies stroke/TIA. Psychiatric: The patient denies psychiatric medications, denies depression, and denies voices, denies substance abuse. Endocrine: The patient denies thyroid disorders, denies diabetes, and denies hormonal problems. Hematologic: The patient denies a history of bruising, denies bleeding, and denies anemia, denies blood clots. Infections: The patient denies a history of measles and mumps, denies rheumatic fever, and denies sexually transmitted diseases. Musculoskeletal: The patient denies back pain/injury, denies back problems, denies sciatica, deniesknee/foot trouble, denies arthritis, or denies gout. When was patient's last Mammogram screening? N/A Last Colonoscopy: None Charlie Mera RN PHYSICAL EXAMINATION: General: The patient is 41 year old male, well nourished, well hydrated in no acute distress. The patient is oriented to time, place, and person. VITALS: Blood pressure 124/76, pulse 102, temperature 36.8 C (98.3 F), temperature source Temporal,resp. rate 18, height 185.4 cm (6' 1), weight (!) 144.7 kg (319 lb), SpO2 97 %. HEENT: Normal cephalic, ataumatic, pupils are equally round, sclera are anicteric, mucous membranesare moist, oropharynx is clear. Neck has no masses, asymmetry or lymphadenopathy. Thyroid is unremarkable. Respiratory: Clear to auscultation and percussion. Normal respiratory excursion and pattern. Cardiac: Examination is regular rate and rhythm. Abdominal exam: Soft, nontender diffusely, No hepatosplenomegaly. No palpable hernias at the site of repair. Approximately a 12 x 10 cm protuberant mass consistent with what is felt to be hematoma asdescribed on CT scan. There is tension of the skin and the skin is slightly discolored but not frankly ischemic.. Rectal exam: exam deferred Extremities: no clubbing, cyanosis or edema. No adenopathy. Other: LABORATORY VALUES: As Noted RADIOLOGIC STUDIES: As Noted PROCEDURE: Ultrasound Guided hematoma/seroma aspiration The risks, benefits and anticipated outcomes of the procedure, the risks and benefits of the alternatives to the procedure, and the roles and tasks of the personnel to be involved, were discussed with the patient, and the patient consents to the procedure and agrees to proceed. Given the fact the patient was having growing over this area increasing discomfort and the skin was somewhat tense we discussed the risk of aspiration with infection but felt that overall the risk-benefit would lean towards aspiration. After explaining the procedure and consent was obtained, Patrick was positioned. The partially liquefied hematoma at the umbilical area was identified by ultrasound. 1% lidocaine was injected to the skin. An 18 gauge needle was inserted under ultrasound guidance. The partially liquid hematoma was aspirated draining approximately 200 to 250cc of thicker bloody fluid. The liquid portion was nearly completely aspirated. This fluid was sent for culture. A bandage was applied to the needle aspiration site. Patrick tolerated the procedure well. Assessment IMPRESSION: Ultrasound-guided aspiration of hematoma. PLAN: Hopefully this will make the patient more comfortable symptomatically and minimize the risk of breakdown at the site. If the patient notes increasing pain or redness worrisome for infection he should contact the office right away. Diagnoses: (T14.8XXA) Hematoma (primary encounter diagnosis) (K43.2) Incisional hernia, without obstruction or gangrene My findings have been communicated to Dr. Maddison Martin MD via shared medical record. This note will be forwarded to Dr. Maddison Martin MD. Return to Clinic: The patient is instructed to follow-up with me as needed. Ibrahima Schaefer MD * Charlie Mera RN - 01/03/2022 10:40 AM EDT UNIVERSAL PROTOCOL / SAFETY CHECKLIST Procedure to be Performed: Aspiration of abdominal wall seroma/hematoma. Sign In: A Moment of CARE was completed. Personnel directly involved with the procedure wore the appropriate PPE (Personal Protective Equipment). No special equipment needed. Patient/Surrogate Stated/Verified: PATIENT VERIFIED(optional for EMERGENT procedures): Patient name, Date of , Relevant allergies and The intended procedure Time Out Communication: Intended patient and procedure match the source documents. Consent documented and matches the intended procedure. Relevant labs, photos, and/or imaging studies have been reviewed. Correct side/site marked and visible. Medications required for procedure verified. No fire risk assessment and interventions applicable. No implant(s) inserted. Sign Out: SIGN OUT (optional for EMERGENT procedures): All specimen containers correctly labeled. No instruments, equipment or retained foreign bodies applicable. Post-procedure follow-up management communicated and Plan of Care Visit completed when applicable. Charlie Mera RN [facility]* Charlie Mera RN - 01/03/2022 11:27 AM EDT REVIEW OF SYSTEMS: General: The patient denies fatigue, denies weight loss, denies weight gain, denies feeling hot, and denies feelings of cold. Eyes: The patient denies glaucoma, denies eye injury/surgery, wears glasses or contacts. Ear/Nose/Throat: The patient denies allergies, denies hayfever, denies ear infections, and denies bloody noses. Cardiovascular: The patient denies chest pain, denies heart disease, denies high blood pressure,denies cardiac stent, denies prior heart attack, denies irregular heart beat, denies high cholesterol, denies poor circulation, denies heart failure, other cardiac issues, denies claudication, denies cold feet, denies peripheral arterial stent. Respiratory: The patient denies tuberculosis, denies pneumonia, denies frequent cough, denies pulmonary embolism, denies shortness of breath, and denies coughing up blood. Gastrointestinal: The patient denies difficulty swallowing, denies acid reflux, denies ulcers, denies vomiting, denies jaundice/hepatitis, denies gallbladder problems, denies black or tarry stools, denies hemorrhoids, denies bleeding from rectum, denies diverticulitis, denies constipation, denies diarrhea, denies loss of stool control, and NOTES hernias. Kidney/Bladder: The patient denies kidney stones, denies urine infections, and denies bloody urine. Skin: The patient denies a history of skin cancer, denies bleeding/changing moles, and denies a history of skin rash. Neurologic: The patient NOTES a history of epilepsy/convulsions, denies headaches, denies head/spinal injuries, and denies stroke/TIA. Psychiatric: The patient denies psychiatric medications, denies depression, and denies voices, denies substance abuse. Endocrine: The patient denies thyroid disorders, denies diabetes, and denies hormonal problems. Hematologic: The patient denies a history of bruising, denies bleeding, and denies anemia, denies blood clots. Infections: The patient denies a history of measles and mumps, denies rheumatic fever, and denies sexually transmitted diseases. Musculoskeletal: The patient denies back pain/injury, denies back problems, denies sciatica, deniesknee/foot trouble, denies arthritis, or denies gout. When was patient's last Mammogram screening? N/A Last Colonoscopy: None Charlie Mera RN documented [facility] Instructions* Patient Instructions* Charlie Mera RN - 01/03/2022 10:45 AM EDT The following instructions are important for you related to your office visit today with the [facility] General Surgeons. Instructions After HEMATOMA/SEROMA ASPIRATION Please do not take aspirin or other blood thinners for the next few days. Leave the dressing in place for two days. After that you may leave the site uncovered. If you have bleeding from the needle site, hold pressure with a clean gauze. If the bleeding continues, contact our office immediately. I recommend taking Advil or Tylenol for the discomfort. If you have significant bruising, an ice pack may improve your discomfort. Please be aware that the hematoma/seroma may return following aspiration. Contact our office immediately if you have any questions or concerns. If you note any additional difficulties, questions, or concerns, you should contact our office immediately @ [phone] and ask to be transferred to the General Surgery department. documented in this encounterPrem[facility] Hospital Discharge instructions Patient Education 12/21/2021 22:26:10 Hematoma Hematoma A hematoma is a collection of blood trapped outside of a blood vessel. It is what we think of as a bruise or a contusion. It is usually seen under the skin as a black and blue spot on your arm or leg, or a bump on your head after an injury. It can be almost anywhere on or in your body. It can also occur in an internal organ where it can be more serious. A hematoma is caused by an injury with damage to small blood vessels. This causes blood to leak into the tissues. Blood forms a pocket under the skin that swells and looks like a purplish patch. Hematomas sometimes form under the skin from bleeding during childbirth and can be particularly serious.Another serious form of hematoma forms after a fall on the head, called a subdural hematoma. Gradually the blood in the hematoma is absorbed back into the body. The swelling and pain of the hematoma will go away. This takes from 1 to 4 weeks, depending on the size of the hematoma. The skin over the hematoma may turn bluish then brown and yellow as the blood is dissolved and absorbed. Usually, this only takes a couple of weeks but can last months. Home care Limit motion of the joints near the hematoma. If the hematoma is large and painful, avoid sports and other vigorous physical activity until the swelling and pain goes away. Apply an ice pack (ice cubes in a plastic bag, or a frozen bag of peas, wrapped in a thin towel) over the injured area for 20 minutes every 1 to 2 hours the first day. Continue with ice packs 3 to 4 times a day for the next 2 days. Continue the use of ice packs for relief of pain and swelling as needed. If you need anything for pain, you can take acetaminophen, unless you were given a different pain medicine to use. Talk with your healthcare provider before using this medicine if you have chronic liver or kidney disease. Also talk with your healthcare provider if you have had a stomach ulcer or digestive tract bleeding, or are taking blood-thinner medicines. Follow-up care Follow up with your healthcare provider, or as advised. If X-rays or a CT scan were done, you will be notified if there is a change in the reading, especially if it affects treatment. When to seek medical advice Call your healthcare provider right away if any of the following occur: Redness around the hematoma Increase in pain or warmth in the hematoma Increase in size of the hematoma Fever of 100.4 F (38 C) or higher, or as directed by your healthcare provider If the hematoma is on the arm or leg, watch for: oIncreased swelling or pain in the extremity oNumbness or tingling or blue color of the hand or foot [id number] [employer] [place] [address], [place] [address]. All rights reserved. This information is not intended as a substitute for professional medical care. Always follow yourhealthcare professional's instructions. Follow Up Care 12/21/2021 20:37:47 With:AARON DUQUE MD, Surgery Address: [address] [facility] [place] [address] [phone] When:2-4 days [facility] 07-08-2022 Emergency department Discharge summary Discharge Instructions Thank you for allowing [facility] to assist you with your healthcare needs. The following is importantdischarge information regarding your hospital visit. Diagnosis from Today's Visit Hematoma Abdominal pain What to Do Next Instructions from Your Care Team No qualifying data available. Post Acute Orders No qualifying data available. You Need to Schedule the Following Appointments Follow Up with AARON DUQUE MD, Surgery When Within 2-4 days Where: [address] [facility] [address] [place], [place] [id number] [phone] Allergies Keflex Keppra (Rash) Tape, Paper (Rash) morphine (Rash) naproxen Medications Please ask your primary doctor or pharmacist before taking any other medication not listed, including over the counter drugs, herbal medications, vitamins and or supplements as they may interact withyour home medications. What How Much When Why Instructions Last Dose New acetaminophen-hydrocodone (Tynan 325- 5 mg oral tablet) 1 tab(s) by mouth Every 6 hours as needed for as needed for pain Hematoma Duration: 3 Days Printed Prescription Unchanged carBAMazepine (TEGretol 200 mg oral tablet) 3 tab(s) by mouth Two (2) times a day Seizure Post-operative state s/p umbilical hernia repair, possible seizure following surgery Unchanged carBAMazepine (TEGretol) 600 Milligram by mouth Two (2) times a day Please take this list to your next doctor s visit. Bring all medications you take, including over the counter medications, herbals and other supplements with you to your doctor s visit. Patients and families are reminded to discard old lists and to update any records with all medication providers or retail pharmacies. Education Materials Hematoma A hematoma is a collection of blood trapped outside of a blood vessel. It is what we think of as a bruise or a contusion. It is usually seen under the skin as a black and blue spot on your arm or leg, or a bump on your head after an injury. It can be almost anywhere on or in your body. It can also occur in an internal organ where it can be more serious. A hematoma is caused by an injury with damage to small blood vessels. This causes blood to leak into the tissues. Blood forms a pocket under the skin that swells and looks like a purplish patch. Hematomas sometimes form under the skin from bleeding during childbirth and can be particularly serious.Another serious form of hematoma forms after a fall on the head, called a subdural hematoma. Gradually the blood in the hematoma is absorbed back into the body. The swelling and pain of the hematoma will go away. This takes from 1 to 4 weeks, depending on the size of the hematoma. The skin over the hematoma may turn bluish then brown and yellow as the blood is dissolved and absorbed. Usually, this only takes a couple of weeks but can last months. Home care Limit motion of the joints near the hematoma. If the hematoma is large and painful, avoid sports and other vigorous physical activity until the swelling and pain goes away. Apply an ice pack (ice cubes in a plastic bag, or a frozen bag of peas, wrapped in a thin towel) over the injured area for 20 minutes every 1 to 2 hours the first day. Continue with ice packs 3 to 4 times a day for the next 2 days. Continue the use of ice packs for relief of pain and swelling as needed. If you need anything for pain, you can take acetaminophen, unless you were given a different pain medicine to use. Talk with your healthcare provider before using this medicine if you have chronic liver or kidney disease. Also talk with your healthcare provider if you have had a stomach ulcer or digestive tract bleeding, or are taking blood-thinner medicines. Follow-up care Follow up with your healthcare provider, or as advised. If X-rays or a CT scan were done, you will be notified if there is a change in the reading, especially if it affects treatment. When to seek medical advice Call your healthcare provider right away if any of the following occur: Redness around the hematoma Increase in pain or warmth in the hematoma Increase in size of the hematoma Fever of 100.4 F (38 C) or higher, or as directed by your healthcare provider If the hematoma is on the arm or leg, watch for: oIncreased swelling or pain in the extremity oNumbness or tingling or blue color of the hand or foot [phone] [employer] [address] [place] [address], [place] [address]. All rights reserved. This information is not intended as a substitute for professional medical care. Always follow yourhealthcare professional's instructions. Additional Information VACCINATE! IT SAVES LIVES! Members of the community who have not yet received the COVID-19 vaccine and would like to receive it can visit one of [facility] vaccine clinics. There are many vaccine clinic locations within the [facility]. For locations and available times, please visit [email or web address]. It is important to note that some COVID mobile vaccine clinics are held outdoors and may be canceled in rainy orstormy conditions. To learn more about pediatric vaccinations (ages 5-11), we invite you to visit the [facility] webpage. [email or web address] learn more about the COVID-19 vaccine, we invite you to visit the [facility] website for a list of frequently asked questions. [email or web address] [facility] [employer] Patient Portal Access Instructions: Stay connected with your healthcare team and access your personal medical information anytime with the [facility] Patient Portal. If you would like a full copy of your medical records please contact the [facility] Medical Records Department Friday through Friday between 8a.m. and 4:30p.m. Please follow the directions below to access the portal: 1.Access the email account you provided upon registration to the hospital.2.Look for an invitation email from [facility].3.Open the email and access the invitation link: Accept Invitation to [facility]4.Fill in the required [place] to create your account. Sign into [email or web address] with your username and password that you created in the above steps to stay up to date. You can then view a summary of results, a summary of your visits, and the ability to download your summaries to your computer or send the information securely to a physician. Remember that your healthcare information is confidential, so carefully consider who you will allow to register on the [facility] Patient Portal for access to your information. You can also access the [facility] Patient Portal on the [employer] yen. Simply click on Health Records under [employer] and then click on the [employer] logo. HOW TO SAFELY DISPOSE OF PRESCRIPTION MEDICATIONS Please use one of the following methods to safely dispose of your unused medications. 1.Use a drug disposal kit: the drug disposal pouch allows you to safely discard your old and unuseddrugs. Ask your nurse to give you one when you are discharged.2.Visit a local take-back location: Many local pharmacies and police departments have programs that collect old and unwanted prescriptiondrugs. Call your local pharmacy or go to http://Jiberish.Zenefits/5Y1Ia1e to find one close to you.3.Make use of household items: Use cat litter or old coffee grounds to dispose medications if other options arenot available. Mix your drugs with these household products, seal them in an airtight container andthrow it into the garbage. Call [facility]: [phone] to be sure your drugs can be disposed of in this way. Some medicines may require a different approach.4.Never flush your medications down the toilet. IF YOU HAVE BEEN PRESCRIBED AN OPIOIDS FOR PAIN If you have been prescribed an opioid (such as hydrocodone, oxycodone or morphine), it is critical to understand the possible side effects and risks of opioid pain medications. Even when taken as directed, opioids can have several side effects including: Tolerance, meaning you might need to take more of a medication for the same pain relief. Nausea, vomiting and/or constipation. Sleepiness, dizziness, dry mouth, confusion, depression or itching. Physical dependence, meaning you have withdrawal symptoms when a medication is stopped ? this can develop within a few days. KNOW YOUR RESPONSIBILITIES It is important to know exactly how much and how often to take the opioid pain medications you are prescribed. Never take opioids in higher amounts or more often than prescribed. Do not combine opioids with alcohol or other drugs that cause drowsiness, such as benzodiazepines, also known as benzos,including diazepam and alprazolam, muscle relaxants or sleep aids. Never sell or share prescriptionopioids. This is illegal. Store opioids in a secure place and out of reach of others (including children, family, friends and visitors). The last page(s) of this document has been signed and retained as a CHART COPY Signatures Patient Education Materials Hematoma Medication Leaflets My discharge plan and instructions have been reviewed and explained to me and I,GA PATRICK Cesar understand my current condition and have read and understand these discharge instructions. I have received a written copy of the plan/instructions. If I have questions, I am aware that I should contact my doctor. Patient/Mica Miner Signature: Date/Time: Relationship to Patient: Witness Name/Signature: Date/Time: [facility]07-08-2022 Note ORIGINAL EXAMINATION: CT OF THE ABDOMEN AND PELVIS WITH CONTRAST 12/21/2021 9:34 pm TECHNIQUE: CT of the abdomen and pelvis was performed with the administration of intravenous contrast. Multiplanar reformatted images are provided for review. Automated exposure control, iterative reconstruction, and/or weight based adjustment of the mA/kV was utilized to reduce the radiation dose to as low as reasonably achievable. COMPARISON: CT abdomen pelvis 11/30/2021 HISTORY: ORDERING SYSTEM PROVIDED HISTORY: Reason for Exam: abdominal pain, ventral hematoma s/p hernia repair FINDINGS: Mild multilevel degenerative changes throughout the spine. No acute osseous abnormality. The heterogeneous hyperdense ventral abdominal hematoma appears to have increased in size since the comparison exam, measuring 8.6 x 12.8 x 12.0 cm (AP x medial-lateral x craniocaudal), previously measuring 7.5 x 11.6 x 11.0 cm. No soft tissue gas or gas within the collection. The included lung bases are clear. The liver, gallbladder, spleen, pancreas in the bilateral adrenal glands are unremarkable. The kidneys enhance symmetrically. Subcentimeter hypodense left upper pole renal lesions are too small to definitively characterize but statistically represent cysts. No renal calculi. No hydronephrosis. No focal bladder wall thickening. The prostate is unremarkable. The small bowel is normal caliber without evidence of inflammatory change. Mild rectal wall prominence, most likely representing underdistention. The large bowel is unremarkable. The appendix is not visualized however there is no pericecal inflammation. The abdominal aorta is mildly atherosclerotic normal caliber. No free air free fluid. No pathologically enlarged lymph nodes. Small bilateral fat containing inguinal hernias. IMPRESSION: Ventral abdominal wall hematoma has increased in size since the comparison study, now measuring up to 12.8 cm. Continued surveillance is recommended to exclude potential underlying pathologies. I have personally reviewed the images of this examination and agree with the resident's findings and interpretation. Interpreted by: Jorgito Hua DO Preliminary Report By: Zoila Mabry Electronically signed By Jorgito Hua DO Dictated Date: 12/21/2021 9:37:41 PM Prelim Date: 12/21/2021 9:45:11 PM Sign Date: 12/21/2021 9:56:22 PM [facility] Note ORIGINAL EXAMINATION: CT OF THE ABDOMEN AND PELVIS WITH CONTRAST 12/21/2021 9:34 pm TECHNIQUE: CT of the abdomen and pelvis was performed with the administration of intravenous contrast. Multiplanar reformatted images are provided for review. Automated exposure control, iterative reconstruction, and/or weight based adjustment of the mA/kV was utilized to reduce the radiation dose to as low as reasonably achievable. COMPARISON: CT abdomen pelvis 11/30/2021 HISTORY: ORDERING SYSTEM PROVIDED HISTORY: Reason for Exam: abdominal pain, ventral hematoma s/p hernia repair FINDINGS: Mild multilevel degenerative changes throughout the spine. No acute osseous abnormality. The heterogeneous hyperdense ventral abdominal hematoma appears to have increased in size since the comparison exam, measuring 8.6 x 12.8 x 12.0 cm (AP x medial-lateral x craniocaudal), previously measuring 7.5 x 11.6 x 11.0 cm. No soft tissue gas or gas within the collection. The included lung bases are clear. The liver, gallbladder, spleen, pancreas in the bilateral adrenal glands are unremarkable. The kidneys enhance symmetrically. Subcentimeter hypodense left upper pole renal lesions are too small to definitively characterize but statistically represent cysts. No renal calculi. No hydronephrosis. No focal bladder wall thickening. The prostate is unremarkable. The small bowel is normal caliber without evidence of inflammatory change. Mild rectal wall prominence, most likely representing underdistention. The large bowel is unremarkable. The appendix is not visualized however there is no pericecal inflammation. The abdominal aorta is mildly atherosclerotic normal caliber. No free air free fluid. No pathologically enlarged lymph nodes. Small bilateral fat containing inguinal hernias. IMPRESSION: Ventral abdominal wall hematoma has increased in size since the comparison study, now measuring up to 12.8 cm. Continued surveillance is recommended to exclude potential underlying pathologies. I have personally reviewed the images of this examination and agree with the resident's findings and interpretation. Interpreted by: Jorgito Hua DO Preliminary Report By: Zoila Mabry Electronically signed By Jorgito Hua DO Dictated Date: 12/21/2021 9:37:41 PM Prelim Date: 12/21/2021 9:45:11 PM Sign Date: 12/21/2021 9:56:22 PM Ordering Provider: [facility]06-17-2022 Hospital Discharge instructions Patient Education 11/30/2021 20:32:24 Hematoma Hematoma A hematoma is a collection of blood trapped outside of a blood vessel. It is what we think of as a bruise or a contusion. It is usually seen under the skin as a black and blue spot on your arm or leg, or a bump on your head after an injury. It can be almost anywhere on or in your body. It can also occur in an internal organ where it can be more serious. A hematoma is caused by an injury with damage to small blood vessels. This causes blood to leak into the tissues. Blood forms a pocket under the skin that swells and looks like a purplish patch. Hematomas sometimes form under the skin from bleeding during childbirth and can be particularly serious.Another serious form of hematoma forms after a fall on the head, called a subdural hematoma. Gradually the blood in the hematoma is absorbed back into the body. The swelling and pain of the hematoma will go away. This takes from 1 to 4 weeks, depending on the size of the hematoma. The skin over the hematoma may turn bluish then brown and yellow as the blood is dissolved and absorbed. Usually, this only takes a couple of weeks but can last months. Home care Limit motion of the joints near the hematoma. If the hematoma is large and painful, avoid sports and other vigorous physical activity until the swelling and pain goes away. Apply an ice pack (ice cubes in a plastic bag, or a frozen bag of peas, wrapped in a thin towel) over the injured area for 20 minutes every 1 to 2 hours the first day. Continue with ice packs 3 to 4 times a day for the next 2 days. Continue the use of ice packs for relief of pain and swelling as needed. If you need anything for pain, you can take acetaminophen, unless you were given a different pain medicine to use. Talk with your healthcare provider before using this medicine if you have chronic liver or kidney disease. Also talk with your healthcare provider if you have had a stomach ulcer or digestive tract bleeding, or are taking blood-thinner medicines. Follow-up care Follow up with your healthcare provider, or as advised. If X-rays or a CT scan were done, you will be notified if there is a change in the reading, especially if it affects treatment. When to seek medical advice Call your healthcare provider right away if any of the following occur: Redness around the hematoma Increase in pain or warmth in the hematoma Increase in size of the hematoma Fever of 100.4 F (38 C) or higher, or as directed by your healthcare provider If the hematoma is on the arm or leg, watch for: oIncreased swelling or pain in the extremity oNumbness or tingling or blue color of the hand or foot [id number] [employer] [place] [address]. All rights reserved. This information is not intended as a substitute for professional medical care. Always follow yourhealthcare professional's instructions. Follow Up Care 11/30/2021 18:59:24 With:AARON DUQUE Address: [address] [place] [phone] Business (1) When:2-4 days Comments:Schedule appointment for follow-up.Ice or cool compresses to the swollen, painful area.Use Tylenol,Advil or Aleve for pain as needed.Use Tynan as prescribed for severe pain as needed.Return to the ED if symptoms worsen [facility] 06-10-2022 Evaluation + Plan note Future Scheduled Tests Laboratory* Basic Metabolic Panel 11/23/21 * Carbamazepine Level 11/23/21 * Complete Metabolic Panel 11/23/21 [facility] 06-10-2022 Evaluation + Plan note Future Appointments Future Scheduled Tests Laboratory* Basic Metabolic Panel 11/23/21 * Carbamazepine Level 11/23/21 * Complete Metabolic Panel 11/23/21 [facility] 06-10-2022 Evaluation + Plan note Future Scheduled Tests Laboratory* Basic Metabolic Panel 11/23/21 * Carbamazepine Level 11/23/21 * Complete Metabolic Panel 11/23/21 Radiology* IR Drainage Peritoneal Abscess Guide 08/20/22 [facility] 04-23-2022 Hospital Discharge instructions Patient Education 10/06/2021 15:48:50 HERNIA (Inguinal, Ventral, Umbil) Hernia [Adult] A hernia is a bulge of the intestines or surrounding tissues through a tear in the muscle of the abdomen or groin. This may occur as a result of excessive coughing, heavy lifting or being overweight.It can also occur at the site of prior surgery. When a hernia first appears it may be painful due to stretching and tearing of the muscle fibers. When you lie down, the bulge should reduce in size ordisappear completely. If it does not, and you are unable to flatten it with your hand, medical attention is needed at once. Home Care: Avoid heavy lifting and straining or any activities that cause pain in the hernia. Follow Up with your physician as directed by our staff. Get Prompt Medical Attention if any of the following occur: Increasing size of the hernia Increasing pain in the hernia A hernia that does not get smaller when you lie down Hardening of the hernia Abdominal swelling, fever or repeated vomiting Pain moves to the lower right abdomen (just below the waistline) or spreads to the back [id number] [employer] [address] [place] [address], [place] [address]. All rights reserved. This information is not intended as a substitute for professional medical care. Always follow yourhealthcare professional's instructions. Follow Up Care 10/06/2021 14:45:39 With:AARON DUQUE MD, Surgery Address: [address] [facility] [address] [place] [address] [phone] When:2-4 days [facility] Evaluation + Plan note No data available for this section [facility] Evaluation + Plan note Future Appointments Appointment Date:11/01/2021 02:10:00 PM Scheduled Provider:AARON DUQUE MD Location:Gen Surg [facility] Appointment Type:GS OV Check after Test [facility] Evaluation + Plan note Future Appointments [facility] Evaluation + Plan note Future Appointments Appointment Date:12/06/2021 01:40:00 PM Scheduled Provider:AARON DUQUE MD Location:Gen Surg [facility] Appointment Type:GS OV Post Op Appointment Date:02/22/2022 10:30:00 AM Scheduled Provider:APPLE CONNORS Location:[facility] Appointment Type:PC Wellness Annual Future Scheduled Tests Laboratory* Basic Metabolic Panel 11/23/21 * Carbamazepine Level 11/23/21 * Complete Metabolic Panel 11/23/21 [facility] Evaluation + Plan note Future Appointments Appointment Date:12/27/2021 01:20:00 PM Scheduled Provider:AARON DUQUE MD Location:Gen Surg [facility] Appointment Type:GS OV Follow Up Appointment Date:02/22/2022 10:30:00 AM Scheduled Provider:APPLE CONNORS APRN-BERT Location:[facility] Appointment Type:PC Wellness Annual Future Scheduled Tests Laboratory* Basic Metabolic Panel 11/23/21 * Carbamazepine Level 11/23/21 * Complete Metabolic Panel 11/23/21 [facility] Evaluation + Plan note Future Appointments Appointment Date:07/01/2022 03:20:00 PM Scheduled Provider:AARON DUQUE MD Location:Gen Surg [facility] Appointment Type:GS OV Future Scheduled Tests Laboratory* Basic Metabolic Panel 11/23/21 * Carbamazepine Level 11/23/21 * Complete Metabolic Panel 11/23/21 [facility] Evaluation + Plan note Future Appointments Appointment Date:07/25/2022 10:00:00 AM Scheduled Provider:AVANI CANTOR Location:Gen Surg [facility] Appointment Type: OV Post Op Future Scheduled Tests Laboratory* Basic Metabolic Panel 11/23/21 * Carbamazepine Level 11/23/21 * Complete Metabolic Panel 11/23/21 [facility] Evaluation noteNo assessment information available [facility] Work Phone: Evaluation note* Diagnosis Hematoma- Primary Contusion of unspecified site Incisional hernia, without obstruction or gangrene Incisional hernia without mention of obstruction or gangrene [facility] Diagnosis Closed head injury, initial encounter- Primary documented in this encounter [facility] Work Phone: Evaluation note* Diagnosis Injury of right wrist, initial encounter- Primary documented in this encounter [facility] [employer] Work Phone: [email or web address] note* Diagnosis Acute pain of right shoulder- Primary Strain of right shoulder, initial encounter [facility] [email or web address]* Diagnosis Onset Date Resolution Status Infected hernioplasty mesh a cute [facility] Work Phone: Evaluation note* Diagnosis Left lower quadrant abdominal pain- Primary [facility] Diagnosis Preoperative examination- Primary Preoperative examination, unspecified Infected hernioplasty mesh, sequela [facility] Diagnosis Abdominal pain, unspecified abdominal location- Primary Preoperative examination Preoperative examination, unspecified Infected hernioplasty mesh, sequela [facility] Diagnosis Pre-op evaluation- Primary Preoperative examination, unspecified Post traumatic seizure disorder (HCC) Post traumatic seizures Morbid obesity (HCC) Morbid obesity Tobacco use Tobacco use disorder Preoperative examination Preoperative examination, unspecified Infected hernioplasty mesh, sequela [facility] Diagnosis Left lower quadrant abdominal pain- Primary documented in this encounter [facility] note* Diagnosis Left lateral abdominal pain- Primary Abdominal pain, unspecified site documented in this encounter [facility] note* Diagnosis Seizure (CMS/HCC) (HCC)- Primary Other convulsions [facility] Diagnosis Periumbilical abdominal pain- Primary Abdominal pain, periumbilic History of abdominal hernia documented in this encounter [facility] Work Phone: Evaluation note* Diagnosis History of abdominal hernia documented in this encounter [facility] Work Phone: Hospital Discharge instructions No data available for this section [facility] Hospital Discharge instructions* Attachments The following attachments cannot be sent through Care Everywhere. * RICE: General Info (Jamaican) [facility]: Hospital Discharge instructions* Attachments The following attachments cannot be sent through Care Everywhere. * Shoulder Sprain (Jamaican) [facility]: Hospital Discharge instructions Additional Instructions Please keep your appointment next week with [facility] Work Phone: Hospital Discharge instructions Additional Instructions Your x-ray right shoulder negative. Your clinical exam concerns for biceps tendinitis of the shoulder region. Continue ibuprofen. Finish prednisone as prescribed.[facility] Work Phone: Hospital Discharge instructions Additional Instructions You may wear the sling for comfort but exercise your right shoulder at least 3 times a day to prevent frozen shoulder. [id number] medications as needed for pain. Follow-up with orthopedics if not improving.[facility] Work Phone: Progress note No data available for this section [facility] Reason for referral (narrative)No reason for referral information availableWOur [facility] Work Phone: Reason for visit Narrative* Consultation (Routine) - Authorized Specialty Diagnoses / Procedures Referred By Contac t Referred To Contact General Surgery Diagnoses History of abdominal hernia Jonathan Gonzalez MD [address] [facility] [address] [place] [address] Phone: tel: fax: Stephon Benavides MD [address] [facility] [address] [place] [address] Phone: tel: fax: Referral ID Status Reason Start Date Expiration Date Visits Requested Visits Authorized [id number] Authorized Specialty Services Required 07/29/2024 07/29/2025 1 1 [facility] Work Phone: summary note* Daksha Love N: PERFORM Event Display: Patient Summary Documents Authored Date: [id number] [facility] summary note* VERONIKA Connors: PERFORM Event Display: Patient Summary Documents Authored Date: [id number] [facility] summary note* VERONIKA Connors: PERFORM Event Display: Patient Summary Documents Authored Date: [id number] [facility] summary of episode note* Barbara Michele RN: PERFORM Event Display: Outpatient Patient Summary Authored Date: [id number] Discharge Instructions Thank you for allowing [facility] to assist you with your healthcare needs. The following is importantdischarge information regarding your hospital visit. Your Care Team AARON DUQUE MD Your Diagnosis Acute post-operative pain What to do next Follow Up Appointments Follow Up with AARON DUQUE MD, Surgery When In 2 weeks Why: Call office to schedule follow up appointment. Where: [address] [facility] [address] [facility] [place] [address]- [phone] The Following Activity and Diet Have Been Ordered for You Discharge Activity - Ordered -- Sexual [place] Restricted No bending, twisting, crawling or squatt, No shower or tub bath for 2 days; no driving for 5 days, no lifting >15 lbs, 07/18/22 11:48:00 EST Discharge Diet - Ordered -- Follow the post-operative/post-procedure diet instructions provided by your physician's office.,07/18/22 11:48:00 EST The Following Equipment Has Been Ordered for You Discharge Home Equipment Discharge Wound Care - Ordered -- Dressing Type: Dry sterile drsg, Remove dressing in two (2) days. Leave steristrips on until they fall off, 07/18/22 11:48:00 EST Allergies Keflex Keppra (Rash) Tape, Paper (Rash) morphine (Rash) naproxen Medications Please ask your primary doctor or pharmacist before taking any other medication not listed, including over the counter drugs, herbal medications, vitamins and or supplements as they may interact withyour home medications. What How Much When Why Instructions Last Dose New acetaminophen-hydrocodone (Tynan 325- 5 mg oral tablet) 1 tab(s) by mouth Every 4 hours as needed for Pain, scale 4-6 Acute post-operative pain Duration: 7 Days Pickup at [facility]/pharmacy #[id number] Unchanged carBAMazepine (TEGretol 200 mg oral tablet) 3 tab(s) by mouth Two (2) times a day Seizure Post-operative state s/p umbilical hernia repair, possible seizure following surgery Pharmacy Information [facility]/pharmacy #[id number]: [address], [place] [id number] [phone] Please take this list to your next doctor s visit. Bring all medications you take, including over the counter medications, herbals and other supplements with you to your doctor s visit. Patients and families are reminded to discard old lists and to update any records with all medication providers or retail pharmacies. Education Materials Form - Incentive Spirometer Record Use your incentive spirometer as told by your health care provider. Your health care provider or respiratory therapist will help you set a goal. You are required to breathe in slowly and deeply. As you breathe in, the spirometer column will move up slowly and evenly toward your goal. Try to reach the goal marker set on the spirometer. Use this form to write down your progress. Bring this form with you to your follow-up visits. My incentive spirometer goal is to reach . Date Time Amount reached Date Time Amount reached Date Time Amount reached Date Time Amount reached Date Time Amount reached Date Time Amount reached Date Time Amount reached Date Time Amount reached Date Time Amount reached Date Time Amount reached Date Time Amount reached Date Time Amount reached Date Time Amount reached Date Time Amount reached Date Time Amount reached Date Time Amount reached Date Time Amount reached Date Time Amount reached Date Time Amount reached Date Time Amount reached Date Time Amount reached Date Time Amount reached Date Time Amount reached Date Time Amount reached Date Time Amount reached Date Time Amount reached Date Time Amount reached Date Time Amount reached Date Time Amount reached Date Time Amount reached Date Time Amount reached Date Time Amount reached Date Time Amount reached Date Time Amount reached Date Time Amount reached Date Time Amount reached Date Time Amount reached Date Time Amount reached Date Time Amount reached Date Time Amount reached Date Time Amount reached Date Time Amount reached Date Time Amount reached Date Time Amount reached Date Time Amount reached Date Time Amount reached Date Time Amount reached Date Time Amount reached Date Time Amount reached This information is not intended to replace advice given to you by your health care provider. Make sure you discuss any questions you have with your health care provider. Document Released: 06/21/2019 Document Revised: 06/21/2019 Document Reviewed: 06/21/2019 Elsevier Patient Education 2020 [employer] How To Use an Incentive Spirometer An incentive spirometer is a tool that measures how well you are filling your lungs with each breath. Learning to take long, deep breaths using this tool can help you keep your lungs clear and active. This may help to reverse or lessen your chance of developing breathing (pulmonary) problems, especially infection. You may be asked to use a spirometer: After a surgery. If you have a lung problem or a history of smoking. After a long period of time when you have been unable to move or be active. If the spirometer includes an indicator to show the highest number that you have reached, your health care provider or respiratory therapist will help you set a goal. Keep a list (log) of your progress as told by your health care provider. What are the risks? Breathing too quickly may cause dizziness or cause you to pass out. Take your time so you do not get dizzy or light-headed. If you are in pain, you may need to take pain medicine before doing incentive spirometry. It is harder to take a deep breath if you are having pain. How to use your incentive spirometer 1. Sit up on the edge of your bed or on a chair. 2. Hold the incentive spirometer so that it is in an upright position. 3. Before you use the spirometer, breathe out normally. 4. Place the mouthpiece in your mouth. Make sure your lips are closed tightly around it. 5. Breathe in slowly and as deeply as you can through your mouth, causing the piston or the ball to rise toward the top of the chamber. 6. Hold your breath for 3 5 seconds, or for as long as possible. If the spirometer includes a women's basketball coach indicator, use this to guide you in breathing. Slow down your breathing if the indicator goes above the marked areas. 7. Remove the mouthpiece from your mouth and breathe out normally. The piston or ball will return to the bottom of the chamber. 8. Rest for a few seconds, then repeat the steps 10 or more times. Take your time and take a few normal breaths between deep breaths so that you do not get dizzy or light-headed. Do this every 1 2 hours when you are awake. 9. If the spirometer includes a goal marker to show the highest number you have reached (best effort),use this as a goal to work toward during each repetition. 10. After each set of 10 deep breaths, cough a few times. This will help to make sure that your lungs are clear. If you have an incision on your chest or abdomen from surgery, place a pillow or a rolled-up towel firmly against the incision when you cough. This can help to reduce pain from coughing. General tips When you become able to get out of bed, walk around often and continue to cough to help clear your lungs. Keep using the incentive spirometer until your health care provider says it is okay to stop using it. If you have been in the hospital, you may be told to keep using the spirometer at home. Contact a health care provider if: You are having difficulty using the spirometer. You have trouble using the spirometer as often as instructed. Your pain medicine is not giving enough relief for you to use the spirometer as told. You have a fever. You develop shortness of breath. Get help right away if: You develop a cough with bloody mucus from the lungs (bloody sputum). You have fluid or blood coming from an incision site after you cough. Summary An incentive spirometer is a tool that can help you learn to take long, deep breaths to keep your lungs clear and active. You may be asked to use a spirometer after a surgery, if you have a lung problem or a history of smoking, or if you have been inactive for a long period of time. Use your incentive spirometer as instructed every 1 2 hours while you are awake. If you have an incision on your chest or abdomen, place a pillow or a rolled-up towel firmly against your incision when you cough. This will help to reduce pain. This information is not intended to replace advice given to you by your health care provider. Make sure you discuss any questions you have with your health care provider. Document Released: 10/13/2007 Document Revised: 06/25/2018 Document Reviewed: 04/15/2018 [employer] Patient Education 2020 [employer]. Surgical Drain Home Care Surgical drains are used to remove extra fluid that normally builds up in a surgical wound after surgery. A surgical drain helps to heal a surgical wound. Different kinds of surgical drains include: Active drains. These drains use suction to pull drainage away from the surgical wound. Drainage flows through a tube to a container outside of the body. With these drains, you need to keep the bulb or the drainage container flat (compressed) at all times, except while you empty it. Flattening the bulb or container creates suction. Passive drains. These drains allow fluid to drain naturally, by gravity. Drainage flows through a tube to a bandage (dressing) or a container outside of the body. Passive drains do not need to be emptied. A drain is placed during surgery. Right after surgery, drainage is usually bright red and a little thicker than water. The drainage may gradually turn yellow or pink and become thinner. It is likely that your health care provider will remove the drain when the drainage stops or when the amount decreases to 1 2 Tbsp (15 30 mL) during a 24-hour period. Supplies needed: Tape. Germ-free cleaning solution (sterile saline). Cotton swabs. Split gauze drain sponge: 4 x 4 inches (10 x 10 cm). Gauze square: 4 x 4 inches (10 x 10 cm). How to care for your surgical drain Care for your drain as told by your health care provider. This is important to help prevent infection. If your drain is placed at your back, or any other drgx-hu-noeqf area, ask another person to assist you in performing the following tasks: General care Keep the skin around the drain dry and covered with a dressing at all times. Check your drain area every day for signs of infection. Check for: ? Redness, swelling, or pain. ? Pus or a bad smell. ? Cloudy drainage. ? Tenderness or pressure at the drain exit site. Changing the dressing Follow instructions from your health care provider about how to change your dressing. Change your dressing at least once a day. Change it more often if needed to keep the dressing dry. Make sure you: 1. Gather your supplies. 2. Wash your hands with soap and water before you change your dressing. If soap and water are not available, use hand laborer golf course. 3. Remove the old dressing. Avoid using scissors to do that. 4. Wash your hands with soap and water again after removing the old dressing. 5. Use sterile saline to clean your skin around the drain. You may need to use a cotton swab to clean the skin. 6. Place the tube through the slit in a drain sponge. Place the drain sponge so that it covers your wound. 7. Place the gauze square or another drain sponge on top of the drain sponge that is on the wound. Make sure the tube is between those layers. 8. Tape the dressing to your skin. 9. Tape the drainage tube to your skin 1 2 inches (2.5 5 cm) below the place where the tube enters your body. Taping keeps the tube from pulling on any stitches (sutures) that you have. 10. Wash your hands with soap and water. 11. Write down the color of your drainage and how often you change your dressing. How to empty your active drain 1. Make sure that you have a measuring cup that you can empty your drainage into. 2. Wash your hands with soap and water. If soap and water are not available, use hand laborer golf course. 3. Loosen any pins or clips that hold the tube in place. 4. If your health care provider tells you to strip the tube to prevent clots and tube blockages: Hold the tube at the skin with one hand. Use your other hand to pinch the tubing with your thumb and first finger. Gently move your fingers down the tube while squeezing very lightly. This clears any drainage, clots, or tissue from the tube. You may need to do this several times each day to keep the tube clear. Do not pull on the tube. 5. Open the bulb cap or the drain plug. Do not touch the inside of the cap or the bottom of the plug. 6. Turn the device upside down and gently squeeze. 7. Empty all of the drainage into the measuring cup. 8. Compress the bulb or the container and replace the cap or the plug. To compress the bulb or the container, squeeze it firmly in the middle while you close the cap or plug the container. 9. Write down the amount of drainage that you have in each 24-hour period. If you have less than 2 Tbsp (30 mL) of drainage during 24 hours, contact your health care provider. 10. Flush the drainage down the toilet. 11. Wash your hands with soap and water. Contact a health care provider if: You have redness, swelling, or pain around your drain area. You have pus or a bad smell coming from your drain area. You have a fever or chills. The skin around your drain is warm to the touch. The amount of drainage that you have is increasing instead of decreasing. You have drainage that is cloudy. There is a sudden stop or a sudden decrease in the amount of drainage that you have. Your drain tube falls out. Your active drain does not stay compressed after you empty it. Summary Surgical drains are used to remove extra fluid that normally builds up in a surgical wound after surgery. Different kinds of surgical drains include active drains and passive drains. Active drains use suction to pull drainage away from the surgical wound, and passive drains allow fluid to drain naturally. It is important to care for your drain to prevent infection. If your drain is placed at your back, or any other goty-cj-sfsez area, ask another person to assist you. Contact your health care provider if you have redness, swelling, or pain around your drain area. This information is not intended to replace advice given to you by your health care provider. Make sure you discuss any questions you have with your health care provider. Document Released: 05/30/2001 Document Revised: 07/07/2019 Document Reviewed: 07/07/2019 Elsevier Patient Education 2019 [employer] Ryan Pantoja Drain Patient Education After surgery, you may notice a bulb-like drain, called a Ryan-Pantoja (ABDOULAYE) connected to tubing coming from your incision. This drain suctions and collects fluid from your incisional area. It also promotes healing and reduces the chance of infection You may have the drain for several days after surgery. While you are hospitalized, your nurse will take care of it. If you go home with the drain in place, you will need to care for it yourself. The process is easy to learn. Your nurse will show you how. How to empty the ABDOULAYE drain 1. Empty the drainage bottle as needed (usually 3 times/day), when it is half full, or as often as directed. 2. Obtain a measuring cup to collect the fluid. 3. Wash your hands thoroughly with soap and water. 4. Unpin the bottle from your dressing or shirt. 5. Remove the rubber stopper from the bottle. 6. Turn the bottle upside-down and squeeze the contents into the measuring cup. Completely empty the bottle. Note: To prevent infection, don t let the rubber stopper or top of the bottle touch the measuring cup or anything else. 7. Clean the plug with an alcohol swab or cotton ball dipped in rubbing alcohol. 8. Use one hand to squeeze all of the air from the bottle. 9. With the bottle still compressed, use your other hand to replace the rubber stopper. Do this to make sure the drain suction works well. The bottle should stay flat until it starts to fill with fluid again. 10. Pin the bottle back on your dressing or shirt to avoid pulling it out accidently. 11. Flush the fluid down the toilet. 12. Wash your hands again. Write down the time, amount and color of the drainage. Always remember to wash your hands before and after the procedure to reduce the risk of infecting the incisional area What should I do if the tubing becomes clogged? Hold the tubing between your thumb and first finger at the place closest to your skin. This hand will prevent the tube from being pulled out of your skin. Use your other thumb and first finger to slide the clog down the tubing toward the bulb. You may have to repeat the sliding until the tubing is unclogged. When should I seek immediate care? Your ABDOULAYE drain breaks or comes out When should I contact my healthcare provider? You think your ABDOULAYE drain is blocked You have brown drainage from your ABDOULAYE drain site, or the drainage smells bad You have a fever higher than 101 F (38.6 C) You have increased pain, redness or swelling around the drain site You have questions about your ABDOULAYE drain care DRAINAGE RECORD Date Time Amount Document Released: 06/02/2006 Document Revised: 05/19/2013 Document Reviewed: 06/03/2014 [employer] Patient Information 2015 [employer]. This information is not intended to replace advicegiven to you by your health care provider. Make sure you discuss any questions you have with your health care provider. Negative Pressure Wound Therapy Home Guide Negative pressure wound therapy (NPWT) uses a sponge or foam-like material (dressing) placed on or inside the wound. The wound is then covered and sealed with a cover dressing that sticks to your skin (is adhesive). This keeps air out. A tube is attached to the cover dressing, and this tube connects to a small pump. The pump sucks fluid and germs from the wound. NPWT helps to increase blood flow to the wound and heal it from the inside. What are the risks? NPWT is usually safe to use. However, problems can occur, including: Skin irritation from the dressing adhesive. Bleeding. Infection. Dehydration. Wounds with large amounts of drainage can cause excessive fluid loss. Pain. Supplies needed: A disposable garbage bag. Soap and water, or hand laborer golf course. Wound cleanser or salt-water solution (saline). New sponge and cover dressing. Protective clothing. Gauze pad. Vinyl gloves. Tape. Skin protectant. This may be a wipe, film, or spray. Clean or germ-free (sterile) scissors. Eye protection. How to change your dressing Prepare to change your dressing 1. If told by your health care provider, take pain medicine 30 minutes before changing the dressing. 2. Wash your hands with soap and water. Dry your hands with a clean towel. If soap and water are not available, use hand laborer golf course. 3. Set up a clean station for wound care. 4. Open the dressing package so that the sponge dressing remains on the inside of the package. 5. Wear gloves, protective clothing, and eye protection. Remove old dressing 1. Turn off the pump and disconnect the tubing from the dressing. 2. Carefully remove the adhesive cover dressing in the direction of your hair growth. 3. Remove the sponge dressing that is inside the wound. If the sponge sticks, use a wound cleanser or saline solution to wet the sponge and help it come off more easily. 4. Throw the old sponge and cover dressing supplies into the garbage bag. 5. Remove your gloves by grabbing the cuff and turning the glove inside out. Place the gloves in the trash immediately. 6. Wash your hands with soap and water. Dry your hands with a clean towel. If soap and water are not available, use hand laborer golf course. Clean your wound Wear gloves, protective clothing, and eye protection. Follow your health care provider's instructions on how to clean your wound. You may be told to: 1. Clean the wound using a saline solution or a wound cleanser and a clean gauze pad. 2. Pat the wound dry with a gauze pad. Do not rub the wound. 3. Throw the gauze pad into the garbage bag. 4. Remove your gloves by grabbing the cuff and turning the glove inside out. Place the gloves in the trash immediately. 5. Wash your hands with soap and water. Dry your hands with a clean towel. If soap and water are not available, use hand laborer golf course. Apply new dressing Wear gloves, protective clothing, and eye protection. 1. If told by your health care provider, apply a skin protectant to any skin that will be exposed to adhesive. Let the skin protectant dry. 2. Cut a piece of new sponge dressing and put it on or in the wound. 3. Using clean scissors, cut a nickel-sized hole in the new cover dressing. 4. Apply the cover dressing. 5. Attach the suction tube over the hole in the cover dressing. 6. Take off your gloves. Put them in the plastic bag with the old dressing. Tie the bag shut and throwit away. 7. Wash your hands with soap and water. Dry your hands with a clean towel. If soap and water are not available, use hand laborer golf course. 8. Turn the pump back on. The sponge dressing should collapse. Do not change the settings on the machine without talking to a health care provider. 9. Replace the container in the pump that collects fluid if it is full. Replace the container per the carpenter inspector's instructions or at least once a week, even if it is not full. General tips and recommendations If the alarm sounds: Stay calm. Do not turn off the pump or do anything with the dressing. Reasons the alarm may go off: ? The battery is low. Change the battery or plug the device into electrical power. ? The dressing has a leak. Find the leak and put tape over the leak. ? The fluid collection container is full. Change the fluid container. Call your health care provider right away if you cannot fix the problem. Explain to your health care provider what is happening. Follow his or her instructions. General instructions Do not turn off the pump unless told to do so by your health care provider. Do not turn off the pump for more than 2 hours. If the pump is off for more than 2 hours, the dressing will need to be changed. If your health care provider says it is okay to shower: ? Do not take the pump into the shower. ? Make sure the wound dressing is protected and sealed. The wound dressing must stay dry. Check frequently that the machine indicates that therapy is on and that all clamps are open. Do not use zfwr-lqv-hopsxee medicated or antiseptic creams, sprays, liquids, or dressings unless your health care provider approves. Contact a health care provider if: You have new pain. You develop irritation, a rash, or itching around the wound or dressing. You see new black or yellow tissue in your wound. The dressing changes are painful or cause bleeding. The pump has been off for more than 2 hours, and you do not know how to change the dressing. The pump alarm goes off, and you do not know what to do. Get help right away if: You have a lot of bleeding. The wound breaks open. You have severe pain. You have signs of infection, such as: ? More redness, swelling, or pain. ? More fluid or blood. ? Warmth. ? Pus or a bad smell. ? Red streaks leading from the wound. ? A fever. You see a sudden change in the color or texture of the drainage. You have signs of dehydration, such as: ? Little or no tears, urine, or sweat. ? Muscle cramps. ? Very dry mouth. ? Headache. ? Dizziness. Summary Negative pressure wound therapy (NPWT) is a device that helps your wound heal. Set up a clean station for wound care. Your health care provider will tell you what supplies to use. Follow your health care provider's instructions on how to clean your wound and how to change the dressing. Contact a health care provider if you have new pain, an irritation, or a rash, or if the alarm goesoff and you do not know what to do. Get help right away if you have a lot of bleeding, your wound breaks open, or you have severe pain.Also, get help if you have signs of infection. This information is not intended to replace advice given to you by your health care provider. Make sure you discuss any questions you have with your health care provider. Document Released: 08/24/2012 Document Revised: 09/24/2019 Document Reviewed: 08/20/2019 [employer] Patient Education 2020 [employer]. Nausea and Vomiting, Adult Nausea is the feeling that you have an upset stomach or that you are about to vomit. Vomiting is when stomach contents are thrown up and out of the mouth as a result of nausea. Vomiting can make you feel weak and cause you to become dehydrated. Dehydration can make you feel tired and thirsty, cause you to have a dry mouth, and decrease how often you urinate. Older adults and people with other diseases or a weak disease-fighting system (immune system) are at higher risk for dehydration. It is important to treat your nausea and vomiting as told by your health care provider. Follow these instructions at home: Watch your symptoms for any changes. Tell your health care provider about them. Follow these instructions to care for yourself at home. Eating and drinking Take an oral rehydration solution (ORS). This is a drink that is sold at pharmacies and retail stores. Drink clear fluids slowly and in small amounts as you are able. Clear fluids include water, ice chips, low-calorie sports drinks, and fruit juice that has water added (diluted fruit juice). Eat bland, exri-bp-fjofig foods in small amounts as you are able. These foods include bananas, applesauce, rice, lean meats, toast, and crackers. Avoid fluids that contain a lot of sugar or caffeine, such as energy drinks, sports drinks, and soda. Avoid alcohol. Avoid spicy or fatty foods. General instructions Take kvme-okq-ommryaw and prescription medicines only as told by your health care provider. Drink enough fluid to keep your urine pale yellow. Wash your hands often using soap and water. If soap and water are not available, use hand laborer golf course. Make sure that all people in your household wash their hands well and often. Rest at home while you recover. Watch your condition for any changes. Breathe slowly and deeply when you feel nauseated. Keep all follow-up visits as told by your health care provider. This is important. Contact a health care provider if: Your symptoms get worse. You have new symptoms. You have a fever. You cannot drink fluids without vomiting. Your nausea does not go away after 2 days. You feel light-headed or dizzy. You have a headache. You have muscle cramps. You have a rash. You have pain while urinating. Get help right away if: You have pain in your chest, neck, arm, or jaw. You feel extremely weak or you faint. You have persistent vomiting. You have vomit that is bright red or looks like black coffee grounds. You have bloody or black stools or stools that look like tar. You have a severe headache, a stiff neck, or both. You have severe pain, cramping, or bloating in your abdomen. You have difficulty breathing, or you are breathing very quickly. Your heart is beating very quickly. Your skin feels cold and clammy. You feel confused. You have signs of dehydration, such as: ? Dark urine, very little urine, or no urine. ? Cracked lips. ? Dry mouth. ? Sunken eyes. ? Sleepiness. ? Weakness. These symptoms may represent a serious problem that is an emergency. Do not wait to see if the symptoms will go away. Get medical help right away. Call your local emergency services (911 in the [place] Do not drive yourself to the hospital. Summary Nausea is the feeling that you have an upset stomach or that you are about to vomit. As nausea getsworse, it can lead to vomiting. Vomiting can make you feel weak and cause you to become dehydrated. Follow instructions from your health care provider about eating and drinking to prevent dehydration. Take ewvo-rtr-dhchmkj and prescription medicines only as told by your health care provider. Contact your health care provider if your symptoms get worse, or you have new symptoms. Keep all follow-up visits as told by your health care provider. This is important. This information is not intended to replace advice given to you by your health care provider. Make sure you discuss any questions you have with your health care provider. Document Released: 06/02/2006 Document Revised: 09/24/2019 Document Reviewed: 11/10/2018 [employer] Patient Education 2020 [employer]. Monitored Anesthesia Care, Care After These instructions provide you with information about caring for yourself after your procedure. Your health care provider may also give you more specific instructions. Your treatment has been plannedaccording to current medical practices, but problems sometimes occur. Call your health care provider if you have any problems or questions after your procedure. What can I expect after the procedure? After your procedure, you may: Feel sleepy for several hours. Feel clumsy and have poor balance for several hours. Feel forgetful about what happened after the procedure. Have poor judgment for several hours. Feel nauseous or vomit. Have a sore throat if you had a breathing tube during the procedure. Follow these instructions at home: For at least 24 hours after the procedure: Have a responsible adult stay with you. It is important to have someone help care for you until youare awake and alert. Rest as needed. Do not: ? Participate in activities in which you could fall or become injured. ? Drive. ? Use heavy machinery. ? Drink alcohol. ? Take sleeping pills or medicines that cause drowsiness. ? Make important decisions or sign legal documents. ? Take care of children on your own. Eating and drinking Follow the diet that is recommended by your health care provider. If you vomit, drink water, juice, or soup when you can drink without vomiting. Make sure you have little or no nausea before eating solid foods. General instructions Take skse-hkd-ynjorws and prescription medicines only as told by your health care provider. If you have sleep apnea, surgery and certain medicines can increase your risk for breathing problems. Follow instructions from your health care provider about wearing your sleep device: ? Anytime you are sleeping, including during daytime naps. ? While taking prescription pain medicines, sleeping medicines, or medicines that make you drowsy. If you smoke, do not smoke without supervision. Keep all follow-up visits as told by your health care provider. This is important. Contact a health care provider if: You keep feeling nauseous or you keep vomiting. You feel light-headed. You develop a rash. You have a fever. Get help right away if: You have trouble breathing. Summary For several hours after your procedure, you may feel sleepy and have poor judgment. Have a responsible adult stay with you for at least 24 hours or until you are awake and alert. This information is not intended to replace advice given to you by your health care provider. Make sure you discuss any questions you have with your health care provider. Document Released: 09/22/2016 Document Revised: 08/31/2018 Document Reviewed: 09/22/2016 [employer] Patient Education 2020 [employer] Open Hernia Repair, Adult, Care After This sheet gives you information about how to care for yourself after your procedure. Your health care provider may also give you more specific instructions. If you have problems or questions, contact your health care provider. What can I expect after the procedure? After the procedure, it is common to have: Mild discomfort. Slight bruising. Minor swelling. Pain in the abdomen. Follow these instructions at home: Incision care Follow instructions from your health care provider about how to take care of your incision area. Make sure you: ? Wash your hands with soap and water before you change your bandage (dressing). If soap and water are not available, use hand laborer golf course. ? Change your dressing as told by your health care provider. ? Leave stitches (sutures), skin glue, or adhesive strips in place. These skin closures may need to stay in place for 2 weeks or longer. If adhesive strip edges start to loosen and curl up, you may trim the loose edges. Do not remove adhesive strips completely unless your health care provider tells you to do that. Check your incision area every day for signs of infection. Check for: ? More redness, swelling, or pain. ? More fluid or blood. ? Warmth. ? Pus or a bad smell. Activity Do not drive or use heavy machinery while taking prescription pain medicine. Do not drive until your health care provider approves. Until your health care provider approves: ? Do not lift anything that is heavier than 10 lb (4.5 kg). ? Do not play contact sports. Return to your normal activities as told by your health care provider. Ask your health care provider what activities are safe. General instructions To prevent or treat constipation while you are taking prescription pain medicine, your health care provider may recommend that you: ? Drink enough fluid to keep your urine clear or pale yellow. ? Take bvqm-uzx-zaqhxsz or prescription medicines. ? Eat foods that are high in fiber, such as fresh fruits and vegetables, whole grains, and beans. ? Limit foods that are high in fat and processed sugars, such as fried and sweet foods. Take ovkm-efp-jxghhvf and prescription medicines only as told by your health care provider. Do not take tub baths or go swimming until your health care provider approves. Keep all follow-up visits as told by your health care provider. This is important. Contact a health care provider if: You develop a rash. You have more redness, swelling, or pain around your incision. You have more fluid or blood coming from your incision. Your incision feels warm to the touch. You have pus or a bad smell coming from your incision. You have a fever or chills. You have blood in your stool (feces). You have not had a bowel movement in 2 3 days. Your pain is not controlled with medicine. Get help right away if: You have chest pain or shortness of breath. You feel light-headed or feel faint. You have severe pain. You vomit and your pain is worse. This information is not intended to replace advice given to you by your health care provider. Make sure you discuss any questions you have with your health care provider. Document Released: 12/20/2005 Document Revised: 05/15/2018 Document Reviewed: 11/13/2016 [employer] Patient Education 2020 [employer] Additional Information VACCINATE! IT SAVES LIVES! Members of the community who have not yet received the COVID-19 vaccine and would like to receive it can visit one of [facility] vaccine clinics. There are many vaccine clinic locations within the [facility]. For locations and available times, please visit [email or web address] It is important to note that some COVID mobile vaccine clinics are held outdoors and may be canceled in rainy or stormy conditions. To learn more about pediatric vaccinations (ages 5-11), we invite you to visit the [facility] webpage. [email or web address] learn more about the COVID-19 vaccine, we invite you to visit the [employer] website for a list of frequently asked questions. [email or web address] [employer] Patient Portal Access Instructions: Stay connected with your healthcare team and access your personal medical information anytime with the [employer] Patient Portal.If you would like a full copy of your medical records, please contact the [facility] Medical Records Department, Friday through Friday between 8a.m. and 4:30p.m. Please follow the directions below to access the portal: 1.Access the email account you provided upon registration to the [facility].2.Look for an invitation email from [facility].3.Open the email and access the invitation link: Accept [facility] to [facility].Fill in the required [place] to create your account. Sign into [email or web address] with your username and password that you created in the above steps to stay up to date. You can then view a summary of results, a summary of your visits, and the ability to download your summaries to your computer or send the information securely to a physician. Remember that your healthcare information is confidential, so carefully consider who you will allow to register on the [employer] Patient Portal for access to your information. You can also access the [employer] Patient Portal on the [employer] yen. Simply click on Health Records under [employer] and then click on the [employer] logo. HOW TO SAFELY DISPOSE OF PRESCRIPTION MEDICATIONS Please use one of the following methods to safely dispose of your unused medications. 1.Use a drug disposal kit: the drug disposal pouch allows you to safely discard your old and unuseddrugs. Ask your nurse to give you one when you are discharged.2.Visit a local take-back location: Many local pharmacies and police departments have programs that collect old and unwanted prescriptiondrugs. Call your local pharmacy or go to http://bit.ly/8T7Ol4b to find one close to you.3.Make use of household items: Use cat litter or old coffee grounds to dispose medications if other options arenot available. Mix your drugs with these household products, seal them in an airtight container andthrow it into the garbage. Call [facility]: [phone] to be sure your drugs can be disposed of in this way. Some medicines may require a different approach.4.Never flush your medications down the toilet. IF YOU HAVE BEEN PRESCRIBED AN OPIOID FOR PAIN If you have been prescribed an opioid (such as hydrocodone, oxycodone or morphine), it is critical to understand the possible side effects and risks of opioid pain medications. Even when taken as directed, opioids can have several side effects including: Tolerance, meaning you might need to take more of a medication for the same pain relief. Nausea, vomiting and/or constipation. Sleepiness, dizziness, dry mouth, confusion, depression or itching. Physical dependence, meaning you have withdrawal symptoms when a medication is stopped, can develop within a few days. KNOW YOUR RESPONSIBILITIES It is important to know exactly how much and how often to take the opioid pain medications you are prescribed. Never take opioids in higher amounts or more often than prescribed. Do not combine opioids with alcohol or other drugs that cause drowsiness, such as benzodiazepines, also known as benzos, including diazepam and alprazolam, muscle relaxants or sleep aids. Never sell or share prescription opioids. This is illegal. Store opioids in a secure place and out of reach of others (including children, family, friends and visitors). The last page of this document has been signed and retained as a CHART COPY. Signatures Patient Education Materials Form - Incentive Spirometer Record How to Use an Incentive Spirometer Surgical [facility] 8- Ryan Pantoja Drain (03/2018)(CUSTOM) Negative Pressure Wound Therapy Home Guide Nausea and Vomiting, Adult Monitored Anesthesia Care, Care After Open Hernia Repair, Adult, Care After Medication Leaflets My discharge plan and instructions have been reviewed and explained to me and I,PATRICK KOROMA understand my current condition and have read and understand these discharge instructions. I have received a written copy of the plan/instructions. If I have questions, I am aware that I should contact my doctor. Patient/Mica Miner Signature: Date/Time: Relationship to Patient: Witness Name/Signature: Date/Time: [facility] Summary Purpose Family History No Family History Records Found Relationship Condition Age at Onset Recorded Date/T radha grandmother Arthritis Unknown mother Arthritis Unknown Seizure Unknown father Malignant neoplasm of colon Unknown Diabetes mellitus Unknown brother Cardiac disease Unknown Advance Directives No Advanced Directives Records Found Advance Directive Response Recorded Date/ Time Advance Directives No July 06, 2017 12:20am Living Will No January 01, 2022 6:14pm Power of Academic Tutor No January 01 6:14pm Advance Directive Response Recorded Date/ Time Advance Directives No July 05, 2017 11:20pm Living Will No July 04 12:18am Power of Academic Tutor No July 04, 2023 12:18am Advance Directive Response Recorded Date/ Time Advance Directives No July 05, 2017 11:20pm Living Will No June 01 023 1:14am Power of Academic Tutor No June 01, 2023 1:14am Advance Directive Response Recorded Date/ Time Living Will No August 24, 2024 10:40pm Power of Academic Tutor No August 24 10:40pm Advance Directives No July 06, 2017 12:20am Advance Directive Response Recorded Date/ Time Living Will No August 24, 2024 10:40pm Do you have a Healthcare Power of Academic Tutor? No August 24, 2024 10:40pm Living Will No September 19, 2024 9:34pm Do you have a Healthcare Power of Academic Tutor? No September 19, 2024 9:34pm Advance Directives No July 06, 2017 12:20am Chief Complaint and Reason for Visit Chief Complaint ABD PAIN Chief Complaint Abd Pain ED- PERIUMBILICAL HERNIA ABDOMINAL PAIN Reason for Visit Infected hernioplast y mesh Chief Complaint Abd Pain Chief Complaint Admit Date shoulder pain August 24, 2024 9:0 2pm Chief Complaint Admit Date shoulder pain August 24, 2024 9:0 2pm upper ext September 19, 2024 9:16 pm Reason for Referral Specialty Diagnoses / Procedures Referred By Lilli t Referred To Contact Neurosurgery Diagnoses Left lower quadrant abdominal pain Procedures CONSULT TO NEUROSURGERY Jese Richardson MD [address] [id number] Juliocesar Borrero MD, PhD [facility] [place] [address] Referral ID Status Reason Start Date Expiration Date Visits Requested Visits Authorized [id number] Ref Not Required PCP Requested Referral 10/07/2023 10/06/2024 1 1 Specialty Diagnoses / Procedures Referred By Contac t Referred To Contact Diagnoses Preoperative examination Infected hernioplasty mesh, sequela Procedures REFER TO PACC - PRE ANESTHESIA CONSULTATION CLINIC OFFICE/OUTPATIENT [facility] 60 MINUTES Linda Griffiths, TRASH COLLECTOR SUPERVISOR.DOOR CLOSER [address] [place], [place] [id number] Referral ID Status Reason Start Date Expiration Date Visits Requested Visits Authorized [id number] Authorized PCP Requested Referral 07/21/2023 07/20/2024 1 1 Specialty Diagnoses / Procedures Referred By Contac t Referred To Contact [facility] Diagnoses Preoperative examination Infected hernioplasty mesh, sequela Procedures ECG COMPLETE ECG ROUTINE ECG W/LEAST 12 LDS W/I&R Linda Griffiths, TRASH COLLECTOR SUPERVISOR.DOOR CLOSER [address] [place] [id number] [facility] [place] [address] Referral ID Status Reason Start Date Expiration Date Visits Requested Visits Authorized [id number] Pending Review Auto-Generat ed Referral 07/21/2023 07/20/2024 1 1 Specialty Diagnoses / Procedures Referred By Contac t Referred To Contact Diagnoses Preoperative examination Infected hernioplasty mesh, sequela Procedures CONSULT TO [facility] OFFICE/OUTPATIENT [facility] 60 MINUTES Linda Griffiths, TRASH COLLECTOR SUPERVISOR.DOOR CLOSER [address] [place] [id number] Referral ID Status Reason Start Date Expiration Date Visits Requested Visits Authorized [id number] Authorized PCP Requested Referral 07/21/2023 07/20/2024 1 1 Specialty Diagnoses / Procedures Referred By Contac t Referred To [facility] [place] Diagnoses Left lower quadrant abdominal pain Procedures CONSULT TO [facility] (CHRONIC PAIN) OFFICE/OUTPATIENT [facility] MDM 60 MINUTES Linda Grifftihs APRN.DOOR CLOSER [address] [place] [id number] Referral ID Status Reason Start Date Expiration Date Visits Requested Visits Authorized [id number] Pending Review PCP Requested Referral 07/18/2023 07/17/2024 1 1 Additional Source Comments (unrecognized sect ion and content) No Status Records FoundNo Status Records FoundNo Status Records FoundNo Status Records FoundNo Status Records FoundNo Status Records FoundNo Status Records FoundNo Status Records FoundNo Status Records FoundNo Status Records FoundNo Status Records Found INFORMATION SOURCE (unrecogn ized section and content) DATE CREATED AUTHOR 12/10/2017 [facility] DATE CREATED AUTHOR AUTHOR'S ORGANIZ ATION 12/10/2021 [facility] DATE CREATED AUTHOR AUTHOR'S ORGANIZ ATION 03/18/2022 [facility] DATE CREATED AUTHOR AUTHOR'S ORGANIZ ATION 04/30/2022 [facility] DATE CREATED AUTHOR AUTHOR'S ORGANIZ ATION 06/12/2022 [facility] DATE CREATED AUTHOR AUTHOR'S ORGANIZ ATION 06/15/2022 [facility] DATE CREATED AUTHOR AUTHOR'S ORGANIZ ATION 02/23/2023 [facility] DATE CREATED AUTHOR AUTHOR'S ORGANIZ ATION 10/16/2023 [facility] ([place]) DATE CREATED AUTHOR AUTHOR'S ORGANIZ ATION 11/07/2023 [facility] DATE CREATED AUTHOR AUTHOR'S ORGANIZ ATION 09/12/2024 [facility] DATE CREATED AUTHOR AUTHOR'S ORGANIZ ATION 10/23/2024 [facility] Care Team (unrecognized sect ion and content) Arborer Relationship Specialty Start Date End Date Maddison Martin MD [address] [facility], [place] [address] PCP - General Internal Medicine 07/08/17 Arborer Relationship Specialty Start Date End Date No, Pcp PCP - General 04/03/22 Team Status: Active Member Role Status Dates Dr. Maddison Martin MD Family Provider Active No Primary Care Physician Primary Care Provider Active Team Status: Inactive Member Role Status Dates No Primary Care Physician Primary Care Provider, Refer ring Provider Active Dr. Jeffery Weber MD Attending Provider Active Team Status: Inactive Member Role Status Dates No Primary Care Physician Primary Care Provider Active Dr. Carlo Shea DO Attending Provider, Emergency P angel Active Team Status: Inactive Member Role Status Dates No Primary Care Physician Primary Care Provider Active Dr. Carlo Shea DO Emergency Provider Active Arborer Relationship Specialty Start Date End Date Maddison Martin MD [address] [facility] [place] [address] PCP - General Internal Medicine 07/08/17 Jeffery Weber MD [address] [place] [address] General Surgery 06/13/23 Arborer Relationship Specialty Start Date End Date Maddison Martin MD [address] [facility] [place] [address] PCP - General Internal Medicine 07/08/17 Jeffery Weber MD [address] [place] [address] General Surgery 06/13/23 Arborer Relationship Specialty Start Date End Date Maddison Martin MD [address] [facility] [place] [address] PCP - General Internal Medicine 07/08/17 Jeffery Weber MD [address] [place] [address] General Surgery 06/13/23 Arborer Relationship Specialty Start Date End Date Maddison Martin MD [address] [facility] [place] [address] PCP - General Internal Medicine 07/08/17 Jeffery Weber MD [address] [place] [address] General Surgery 06/13/23 Arborer Relationship Specialty Start Date End Date Maddison Martin MD [address] [facility] [place] [address] PCP - General Internal Medicine 07/08/17 Jeffery Weber MD [address] [place] [address] General Surgery 06/13/23 Arborer Relationship Specialty Start Date End Date Maddison Martin MD [address] [facility] [place] [address] PCP - General Internal Medicine 07/08/17 Jeffery Weber MD [address] [place] [address] General Surgery 06/13/23 Arborer Relationship Specialty Start Date End Date Maddison Martin MD [address] [facility] [place] [address] PCP - General Internal Medicine 07/08/17 Jeffery Weber MD [address] [place] [address] General Surgery 06/13/23 Arborer Relationship Specialty Start Date End Date Jonathan Gonzalez MD [address] [place] [address] Surgeon General Surgery 06/21/24 Arborer Relationship Specialty Start Date End Date Jonathan Gonzalez MD [address] [place] [address] Surgeon General Surgery 06/21/24 Arborer Relationship Specialty Start Date End Date Jonathan Gonzalez MD [address] [place] [address] Surgeon General Surgery 06/21/24 Team Status: Active Member Role Status Dates No Primary Care Physician Primary Care Provider Active Team Status: Inactive Member Role Status Dates No Primary Care Physician Primary Care Provider Active Start: August 24, 2024 End: August 24, 2024 Dr. Cristian Barrera DO Emergency Provider Active Start : August 24, 2024 End: August 24, 2024 Team Status: Active Member Role Status Dates Viola Starkey NP, TICKET MARKER-C Primary Care Provider Active Team Status: Inactive Member Role Status Dates Dr. Cristian Barrera DO Attending Provider Active Start : August 24, 2024 End: August 24, 2024 Dr. Cristian Barrera DO Emergency Provider Active Start : August 24, 2024 End: August 24, 2024 Viola Starkey NP, TICKET MARKER-C Primary Care Provider Active Start: August 24, 2024 End: August 24, 2024 Team Status: Inactive Member Role Status Dates Viola Starkey NP, TICKET MARKER-C Primary Care Provider Active Start: September 19, 2024 End: September 19, 2024 Brian Maldonado MD Referring Provider Active Star t: September 19, 2024 End: September 19, 2024 Brian Maldonado MD Emergency Provider Active Star t: September 19, 2024 End: September 19, 2024 Care Team (unrecognized sect ion and content) Care Team Personnel Name: PHYSICIAN, NONE Position: Physician Member Role: Primary Care Physician Care Team Related Persons Name: AMANDA WELSH Name: WILFREDO, LOLIS Care Team Personnel Name: PHYSICIAN, NONE Position: Physician Member Role: Primary Care Physician Care Team Related Persons Name: AMANDA WELSH Name: LOLIS ALMEIDA Care Team Personnel Name: PHYSICIAN, NONE Position: Physician Member Role: Primary Care Physician Care Team Related Persons Name: AMANDA WELSH Name: LOLIS ALMEIDA Care Team Personnel Name: PHYSICIAN, NONE Position: Physician Member Role: Primary Care Physician Care Team Related Persons Name: AMANDA WELSH Name: LOLIS ALMEIDA Care Team Personnel Name: PHYSICIAN, NONE Position: Physician Member Role: Primary Care Physician Care Team Related Persons Name: AMANDA WELSH Name: TRANG ALMEIDAY Care Team Personnel Name: PHYSICIAN, NONE Position: Physician Member Role: Primary Care Physician Care Team Related Persons Name: AMANDA WELSH Name: LOLIS ALMEIDA Care Team Personnel Name: PHYSICIAN, NONE Position: Physician Member Role: Primary Care Physician Care Team Related Persons Name: AMANDA WELSH Name: LOLIS ALMEIDA Care Team Personnel Name: PHYSICIAN, NONE Position: Physician Member Role: Primary Care Physician Care Team Related Persons Name: AMANDA WELSH Name: LOLIS ALMEIDA Care Team Personnel Name: PHYSICIAN, NONE Position: Physician Member Role: Primary Care Physician Care Team Related Persons Name: AMANDA WELSH Name: LOLIS ALMEIDA Care Team Personnel Name: PHYSICIAN, NONE Position: Physician Member Role: Primary Care Physician Care Team Related Persons Name: AMANDA WELSH Name: LOLIS ALMEIDA Goals (unrecognized section and content) Goals may be documented in a n alternate section Source Comments (unrecognize d section and content) In the event this informatio n is protected by the Federal Confidentiality of Alcohol and Drug Abuse Patient Records regulations: The Federal rules restrict any use of the information to criminally investigate or prosecute any alcohol or drug abuse patient.[facility] the event this information is protected by the Federal Confidentiality of Alcohol and Drug Abuse Patient Records regulations: The Federal rules restrict any use of the information to criminally investigate or prosecute any alcohol or drug abuse patient.[facility] the event this information is protected by the Federal Confidentiality of Alcohol and Drug Abuse Patient Records regulations: The Federal rules restrict any use of the information to criminally investigate or prosecute any alcohol or drug abuse patient.[facility] Hospital[facility] the event this information is protected by the Federal Confidentiality of Alcohol and Drug Abuse Patient Records regulations: The Federal rules restrict any use of the information to criminally investigate or prosecute any alcohol or drug abuse patient.[facility] Hospital[facility] the event this information is protected by the Federal Confidentiality of Alcohol and Drug Abuse Patient Records regulations: The Federal rules restrict any use of the information to criminally investigate or prosecute any alcohol or drug abuse patient.[facility] Hospital[facility] the event this information is protected by the Federal Confidentiality of Alcohol and Drug Abuse Patient Records regulations: The Federal rules restrict any use of the information to criminally investigate or prosecute any alcohol or drug abuse patient.[facility] Hospital[facility] the event this information is protected by the Federal Confidentiality of Alcohol and Drug Abuse Patient Records regulations: The Federal rules restrict any use of the information to criminally investigate or prosecute any alcohol or drug abuse patient.[facility] Hospital[facility] the event this information is protected by the Federal Confidentiality of Alcohol and Drug Abuse Patient Records regulations: The Federal rules restrict any use of the information to criminally investigate or prosecute any alcohol or drug abuse patient.[facility] Reason for Visit (unrecogniz ed section and content) Reason Comments Consult Reason Comments Head Injury Reason Comments Wrist Pain Pinned between steel pipe and ladder last night c/o pain in right wrist Reason Comments Shoulder Pain Pt c/o right shoulde r pain that started last night after attempting to lift a couch. Reason Comments 24 Cure Resection of Mesh 2 hours los 0 Reason Comments New Patient Specialty Diagnoses / Procedures Referred By Contac t Referred To Contact [facility] [place] / NEUROLOGY PAIN Diagnoses Left lower quadrant abdominal pain Procedures CONSULT TO [facility] (CHRONIC PAIN) OFFICE/OUTPATIENT [facility] 60 MINUTES Linda Griffiths APRN.DOOR CLOSER [address], [place] [address] Neur Pain Recovery [facility] [id number] [id number] Referral ID Status Reason Start Date Expiration Date V isits Requested Visits Authorized [id number] Closed PCP Requested Referral 07/21/2023 06/15/2024 1 1 Reason Comments Pre-Op Visit Reason Comments Care Coordination Reason Comments Headache Pt states headache, states HX of seizures, family told him that he has been staring off. Pt states that he feels fine, and is taking his medication as prescribed and has not had any seizures to his knowledge. Reason Comments New Patient Visit NPV-HERNIA(SELF) Ordered Prescriptions (unrec ognized section and content) Prescription Sig Dispensed Refills Start Date End Da te acetaminophen (TYLENOL) 500 MG tablet Take 1 tablet by mouth every 6 hours as needed for Pain 20 tablet 0 04/03/2022 04/08/2022 Prescription Sig Dispensed Refills Start Date End Da te HYDROcodone-acetaminophe n (NORCO) 5-325 MG per tabletIndications:Acute pain of right shoulder Take 1 tablet by mouth every 6 hours as needed for Pain for up to 3 days. Intended supply: 3 days. Take lowest dose possible to manage pain 12 tablet 0 04/25/2022 04/28/2022 Scheduled Active and Recently Administ ered Medications (unrecognized section and content) Medication Order 04/01/2022 04/02/2022 04/03/2022 acetaminophen (TYLENOL) tablet 1,000 mg (COMPLETED) 1,000 mg, Oral, ONCE, 1 dose, On 04/03/22 at 1645, Maximum dose of acetaminophen is 4000 mg from all sources in 24 hours. 1640 (Given - Provid er: Danyelle Ayala RN) Scheduled Medication Order 04/23/2022 04/24/2022 04/25/2022 HYDROcodone-acetaminophen (NORCO) 5-325 MG per tablet 1 tablet (COMPLETED) 1 tablet, Oral, ONCE, 1 dose, On Maria D 04/25/22 at 1715, Maximum dose of acetaminophen is 4000 mg from all sources in 24 hours. 1732 (Given - Provid er: Gavin Turner RN) FOR RECORDS PERTAINING TO PATIENTS WHO ARE OR HAVE BEEN ENROLLED IN A CHEMICAL DEPENDENCY/SUBSTANCEABUSE PROGRAM, SOME INFORMATION MAY BE OMITTED. This clinical summary was aggregated from multiple sources. Caution should be exercised in using it in the provision of clinical care. This summary normalizes information from multiple sources, and as a consequence, information in this document may materially change the coding, format and clinical context of patient data. In addition, data may be omitted in some cases. CLINICAL DECISIONS SHOULD BE BASED ON THE PRIMARY CLINICAL RECORDS. [employer] [facility]. provides no warranty or guarantee of the accuracy or completeness of information in this document.
--- NOTE | 2024-12-07 00:09 | EDS_ITS ---
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 [id number]. [facility] Medical History Seroma after procedure Influenza due to influenza virus, type A, human Contact with or suspected exposure to other viral communicable disease Abdominal pain Sprain of left foot Left ankle sprain Strain of left knee Contusion of left knee Seizures Home Medications ?Medication ?Instructions ?Recorded ?Last Taken ?Type NK 09/19/24 Unknown History Allergy/AdvReac Type Severity Reaction Status Date / Time adhesive tape Allergy Hives Verified 12/06/24 23:20 cephalexin monohydrate (From Allergy Anaphylaxis Verified 12/06/24 23:20 Keflex) levetiracetam (From Keppra) Allergy Hives Verified 12/06/24 23:20 morphine Allergy Shortness Verified 12/06/24 23:20 of breath naproxen (From Naprosyn) Allergy Hives Verified 12/06/24 23:20 Family History Grandmother Arthritis Mother Arthritis Seizures Father Colon cancer Diabetes Brother Heart disease Surgical History H/O hernia repair History of appendectomy Social History household members: spouse Smoking Status: Current every day smoker tobacco type: cigarettes alcohol intake: never ROS ROS ED Constitutional Constitutional ED: Denies chills or fever(s) Musculoskeletal Musculoskeletal: Reports extremity pain; Denies neck pain Integumentary Denies Abrasions, rash or wounds Neurologic Neurologic: Denies paresthesias or weakness EXAM Physical Exam Const Vital Signs: 12/06/24 23:19 Temperature 96.9 F L Temperature Source Temporal Pulse Rate 112 H Respiratory Rate 16 Blood Pressure 155/91 H Blood Pressure Mean 112 Pulse Ox 99 Positive well nourished and well developed General Appearance ED: well developed and NAD Neck full ROM and supple Back/Spine normal ROM and normal to inspection Extremity Extremity Narrative: Right hand: There is an abrasion across the middle of the right thumb fingernail at the radial aspect. There is no subungual hematoma. The IPJ and the distal phalanx are tender but there is no swelling or deformity. There is no tenderness proximal to this including the MCPJ. There is an abrasion at the lateral aspect of the proximal phalanx of the fifth finger, but there is no bony tenderness and there is no tenderness throughout the hand otherwise. Has full r dimitris of motion including all tendons. Neuro oriented x3, no focal motor deficits and no sensory deficits noted Sensorium / Orientation: alert Psych mental status grossly normal and thought process normal Skin no wounds Rashes: no rashes MDM MDM MDM Narrative Medical decision making narrative: Three-view x-ray series of the right hand on my interpretation show no acute fractures or dislocation. Radiology in agreement. With regards to his nail, there does appear to be a slight amount of damage to it but it appears partial- thickness and superficial. There does not appear to be damage to the nailbed and there does not appear to be damage to the cuticle or the nail root. Patient states he is concerned he may lose his nail. I told him that is possible but not definitive, and there is no subungual hematoma for us to treat or trephinate here. At this time I recommend supportive care with a cage splint for his thumb so he can continue to work at his request, I think that is reasonable. Radiography Diagnostic Testing: Clinical Impression(s) from Imaging Studies Hand X-Ray 12/06/24 23:23 IMPRESSION: No acute osseous abnormality of the right hand. Reading Location: [facility] Discharge Plan Triage Chief Complaint: Upper Extremity Injury ED Provider: Guevara Choi Dx/Rx/DC Orders Clinical Impression: Contusion of right thumb with damage to nail, initial encounter Instructions: ED Finger or Toe Contusion Prescriptions: No Action NK Primary Care Provider: Viola Starkey NP Referrals: Viola Starkey NP, [facility] [Primary Care Provider] - 10-14 Days if not better Print Language: Pashto Disposition Disposition: Home, Self Care
[2024-12-07 00:21] VITALS: BP 137/92; PULSE 103; RESP 16; TEMP 36.1; O2SAT 99
== END 2024-12-07 00:22 | disposition home or self-care (01) ==
PROVIDERS: Emergency Provider Emergency Medicine; PCP Nurse Practitioner Family; Visit Provider Emergency Medicine
DX: S60.111A Contusion of right thumb with damage to nail, initial encounter (principal); F17.210 Nicotine dependence, cigarettes, uncomplicated; X58.XXXA Exposure to other specified factors, initial encounter; Y93.89 Activity, other specified; Y92.89 Other specified places as the place of occurrence of the external cause; Z90.49 Acquired absence of other specified parts of digestive tract
CPT/HCPCS: 73130; 99283

== ENCOUNTER 2024-12-08 23:33 | Emergency (ER) | payer MEDICAID, SELFPAY ==
[2024-12-08 23:34] VITALS: BP 175/105; PULSE 104; RESP 22; TEMP 36.6; O2SAT 99; BMI 44.6
--- NOTE | 2024-12-09 00:30 | CT_ITS ---
PROCEDURE: ABDOMEN/PELVIS W IV CONT ONLY N/A REASON FOR EXAM: ABD PAIN / ? VENTRAL HERNIA TECHNIQUE: ABDOMEN/PELVIS W IV CONT ONLY Coronal and Sagittal reconstruction series were provided. CONTRAST: Isovue-350 VOLUME: 100 mL One or more dose reduction techniques were used (e.g., Automated exposure control, adjustment of the mA and/or kV according to patient size, use of iterative reconstruction technique. RADIATION DOSE SUMMARY: CTDlvol: 24.18 mGy DLP: 1455 mGycm COMPARISON: 06/01/2023. FINDINGS: Unchanged large anterior midline ventral hernia containing nonincarcerated fat. Surgical changes of the anterior abdominal wall. No CT evidence of associated acute abnormality. Unchanged bilateral fat containing inguinal hernias without incarceration. Mild diffuse thickening of the stomach, probably gastritis. The visualized lung bases are unremarkable. Normal liver. Normal gallbladder and extrahepatic biliary system. Normal spleen. Normal pancreas. Normal bilateral adrenal glands. Normal size of the right kidney. There is no right renal mass. There are no right renal calculi. There is no right hydronephrosis. Normal visualized right ureter. Normal size of the left kidney. There is no left renal mass. There are no left renal calculi. There is no left hydronephrosis. Normal visualized left ureter. Normal small intestine. Normal colon. The appendix is visualized and appears normal. There is no demonstrated peritoneal fluid. Mild atheromatous plaques of the abdominal aorta. Normal inferior vena cava. Normal retroperitoneum. Normal urinary bladder. There is no pelvic mass lesion or lymphadenopathy. There is no pelvic fluid. CT/Abdomen/Pelvis W IV Cont ONLY IMPRESSION: Unchanged large anterior midline ventral hernia containing nonincarcerated fat. Surgical changes of the anterior abdominal wall. No CT evidence of associated acute abnormality. Unchanged bilateral fat containing inguinal hernias without incarceration. Mild diffuse thickening of the stomach, probably gastritis. Reading [facility]
[2024-12-09] MEDS: 0.9% Normal Saline (1000mL) 1,000 ML 999 ML IV (00:43)
[2024-12-09] MEDS: HYDROmorphone 1 MG/ML Syringe IV (00:43)
[2024-12-09] MEDS: Ondansetron 4 MG/2 ML Vial IV (00:43)
--- OUTSIDE RECORDS SUMMARY | 2024-12-09 00:45 | XMS RPT_ITS | CCD ---
Author Organization [facility] CliniSywy Care Team Providers Care Proof Plate Maker Name Role Phone JOSH HELTON Unavailable Unavailable MADDISON MARTIN Unavailable Unavailable CIELO ALANIZ Unavailable Unavailable MILDRED GALLARDO Unavailable Unavailable MADDISON MARTIN Unavailable Unavailable MADDISON MARTIN Unavailable Unavailable DR MADDISON MARTIN MD Primary Care Physician PHYSICIAN, NONE Primary Care Physician Unavailab Maddison Cowan MD Primary Care Provider [phone] Unavailable Primary Care Provider Unavailabl e PROVIDER, [...] Primary Care Provider Jeffery Weber MD Unavailable [phone] VIOLA HERNANDEZ Primary Care Physician Maddison Martin MD Primary Care Provider TOI MARMOLEJO DO Attending Unavailable PHYSICIAN, NONE Primary Care Unavailable VIOLA HERNANDEZ Primary Care REYES Tate DO Attending Unavailable PAUL DOBSON Attending Unavailable PHYSICIAN, NONE Primary Care Un[facility] TOI Attending Unavailable PHYSICIAN, NONE Primary Care Unavailable YARA HENSON MD Attending Unavailable PHYSICIAN, NONE Primary Care Unavailable MARY ANN JEONG, DR LEDY Kirkpatrick Attending Unavai lable PHYSICIAN, NONE Primary Care Unavailable DEVAUGHN MCCARTY-BERT, AVANI Attending Unavailabl e PHYSICIAN, NONE Primary Care Unavailable DAVID ZARATE, ROSHNI Attending Itzel vailable PHYSICIAN, NONE Primary Care Unavailable MAI JEONG, DAVONTE Jurado Attending Unavail able LALITO GIRALDON-CURTAIN MENDER, VIOLA Siddiqi Primary Care Unavai lable REICHFIELD DO, TOI Attending Unavailable PHYSICIAN, NONE Primary Care Unavailable MARY ANN JEONG, DR LEDY Kirkpatrick Attending Unavai lable PHYSICIAN, NONE Primary Care Unavailable BEFFA, JESE DARBY Referring [...] Unavai labDr. Cristian Marshall Attending Provider Lalito PACKAGE SEALER MACHINE-C, [facility] Primary Care Provider Brian Maldonado MD Referring Provider Brian Maldonado MD Emergency Provider [phone] Brian Maldonado MD Attending Provider Jimbo JEONG, Dr. Waterman Emergency Provider Brian Maldonado Referring Unavailable Brian Maldonado Attending Unavailable Lalito PACKAGE SEALER MACHINE, [facility] Primary Care Unavailable Cristian Barrera Attending Unavailable Lalito PACKAGE SEALER MACHINE, [facility] Primary Care Unavailable Care Physician, No Primary Primary Care Unava ilable Guevara Choi Attending Unavailable Lalito PACKAGE SEALER MACHINE, [facility] Primary Care Unavailable Guevara Choi Attending Unavailable Allergies Allergy Classification Reported Allergen(s) Allergy Type Date of Onset Reaction(s) Facility (20 sources) Cephalexin; Translations: [cephalexin] Drug Allergy 11-13-19 17 [facility] (20 sources) levETIRAcetam; Translations: [levetiracetam] Drug Allergy 10-24-19 17 [facility] Morphine; Translations: [morphine] Drug Allergy 10-24-19 17 Anaphylaxis, [facility] (20 sources) Naproxen; Translations: [naproxen] Drug Allergy 07-08-19 18 [facility] (20 sources) Tape, Paper Propensity to adverse reactions to substance [facility] (7 sources) Cephalexin; Translations: [cephalexin monohydrate] Drug Allergy 09-24-19 19 [facility] (2 sources) PAPER TAPE; Translations: [PAPER TAPE] Allergy to substance 09-24-19 19 [facility] (9 sources) Adhesive Tape-Silicones; Translations: [ADHESIVE TAPE-SILICONES] Drug Allergy 10-24-19 17 [facility] (8 sources) Adhesive Tape Propensity to adverse reactions to drug 03-08-20 [facility] Comment on above: PAPER TAPE (1 source) levETIRAcetam Drug Allergy [facility] (1 source) Morphine Drug Allergy [facility] (1 source) Naproxen Drug Allergy [facility] (2 sources) Levetiracetam Allergy to substance 10-24-19 [facility] (2 sources) Wound Dressing Adhesive Drug Intolerance 03-08-20 [facility] (1 source) Adhesive agent Drug Intolerance 03-08-20 [facility] (1 source) Adhesive Tape Drug allergy (disorder) 12-07-19 [facility] (1 source) levETIRAcetam Drug Allergy 12-07-19 [facility] (1 source) Morphine Drug Allergy 12-07-19 [facility] (1 source) Naproxen Drug Allergy 12-07-19 [facility] Medications Current Medications Medication Drug [...] / oxyCODONE hydrochloride 5 mg oral tablet (14 sources) Opioid Agonist Start: 09-11-2023 End: 09-14-2023 [...] Discontinued 600 mg PO TWICE A DAY 180 October 11, 2016 12:00am April 01, 2018 9:36am Start: 10-11-2016 End: 04-01-2018 take 600 mg by mouth twice daily Carbamazepine Active 600 MG PO TWICE A DAY April 01, 2018 8:35am carBAMazepine (T EGRETOL PO) Take by mouth 0 Active Comment on above: Take 1 tablet by [facility] twice daily. gabapentin 800 mg oral tablet (20 sources) Anti-epileptic Agent Start: 08-07-2023 Neurontin 800 [...] 26, 2016 11:00pm take 1 capsule by [facility] three times daily gabapentin (NEURONTIN) 100 MG capsule Take 100 mg by mouth 3 times daily. 0 Active Comment on above: Take 1 capsule by [facility] three times daily for 90 days. Take 1 capsule by [facility] three times a day for 90 days. Pettibone (Nk) (2 sources) Start: Pettibone (Nk) Active September 19, 2024 12:00am ondansetron [...] tablet (20 sources) Opioid Agonist Start: 06-01-2023 take 1 tablet by mouth every six hours as needed Hydrocodone-Aceta minophen Active 1 TABLET PO EVERY 6 HOURS NEEDED 10 June 01, 2023 Start: 07-18-2022 End: 07-25-2022 Elsah 325- 5 mg oral tablet Dose = 1 tab(s), Oral, q4h, PRN Pain, scale 4-6, X 7 day(s), # 28 tab(s), 0 Refill(s), Pharmacy: [id number], Acute post-operative pain, 188, cm, 07/18/22 7:07:00 EST, Height, 134, kg, 07/18/22 7:07:00 EST, Dosing Weight Start Date: 07/18/22 Stop Date: 07/25/22 Status: Ordered Start: 04-25-2022 End: 04-25-2022 HYDROcodone-acetaminophen (N ORCO) 5-325 MG per tablet 1 tablet Start: 01-01-2022 End: 09-19-2024 Hydrocodone-Acetaminophen 5- 325 mg tablet Discontinued 1 {tbl} PO EVERY 6 HOURS NEEDED as needed for Pain 05 18July 03, 2023 September 19, 2024 9:33pm Start: 01-01-2022 take 1 tablet by hien th every six hours as needed Hydrocodone-Acetaminophen Active 1 TABLET PO EVERY 6 HOURS NEEDED 12 July 03, 2023 Start: 12-21-2021 End: 12-24-2021 take 1 tablet by mouth every six hours as needed for pain Elsah 325- 5 mg oral tablet Dose = 1 tab(s), Oral, q6h, PRN as needed for pain, X 3 day(s), # 12 tab(s), 0 Refill(s), Hematoma, 134 Start Date: 12/21/21 Stop Date: 12/24/21 Status: Ordered Start: 11-30-2021 End: 12-03-2021 take 1 tablet by mouth every six hours as needed for pain Elsah 325- 5 mg oral tablet Dose = 1 tab(s), Oral, q6h, PRN As needed for severe pain, X 3 day(s), # 12 tab(s), 0 Refill(s), Postoperative abdominal pain, 141.1 Start Date: 11/30/21 Stop Date: 12/03/21 Status: Ordered Start: 10-06-2021 End: 10-09-2021 take 1 tablet by mouth every six hours Elsah 325- 5 mg oral tablet Dose = 1 tab(s), Oral, q6h, # 12 tab(s), 0 Refill(s), Umbilical hernia, 146.5 Start Date: 10/06/21 Stop Date: 10/09/21 Status: Ordered benzonatate 100 mg oral capsule (5 sources) Non-narcotic Antitussive Start: 05-28-2022 End: 09-19-2024 [...] 2022 12:00am ibuprofen 600 mg oral tablet (9 sources) Nonsteroidal Anti-inflammatory Drug Start: 02-25-2024 End: [...] eric padilla predniSONE 20 mg oral tablet (3 sources) Start: 5 End: 5 take 3 [...] Episodic Complication of device; implant or graft (11 sources) Infected hernioplasty mesh; Translations: [Infection and inflammatory reaction due to other internal prosthetic devices, implants and grafts, initial encounter] Onset: 4 07-04-2023 Episodic Complications of surgical procedures or medical care (20 sources) Postoperative hematoma formation; Translations: [Postoperative hematoma] 12-13-2021 Episodic E Codes: Fall (2 sources) Fall from ladder; Translations: [Fall on and [...] 2 Immunizations and screening for infectious disease (5 sources) Contact with and (suspected) exposure to other viral communicable diseases; Translations: [Contact with or suspected exposure to other viral communicable disease] 06-12-2023 Episodic Influenza (5 sources) Influenza due to Influenza A virus; Translations: [Influenza due to other identified influenza virus with other respiratory manifestations] 06-12-2023 Episodic Intestinal obstruction without hernia (1 source) Intestinal obstruction; Translations: [Ileus, unspecified] Onset: 3 Episodic Nausea and vomiting (1 source) Nausea and vomiting; Translations: [Nausea with vomiting, unspecified] Onset: 3 Episodic Other aftercare (2 sources) Other section plotter operator (current) drug therapy; Translations: [Other section plotter operator (current) drug therapy] Onset: 2 Episodic Other bone disease and musculoskeletal deformities (2 sources) Clavicle pain; Translations: [Other specified disorders of bone, shoulder] 09-19-2024 Episodic Other connective tissue disease (3 sources) Tendinitis of long head of biceps brachii of right shoulder; Translations: [Bicipital tendinitis, right shoulder] 08-24-2024 Episodic Other gastrointestinal disorders (1 source) Peritoneal [...] conditions due to external causes (3 sources) Injury of right shoulder; Translations: [Unspecified injury of right shoulder and upper arm, initial encounter] 08-24-2024 Episodic Other lower respiratory disease (1 source) Cough; Translations: [Cough, unspecified] Onset: 2 Episodic Other nervous system disorders (7 sources) Postoperative pain ; Translations: [Other acute [...] use; Translations: [Tobacco use] Onset: 4 Episodic Substance-related disorders (2 sources) Nicotine dependence, unspecified, uncomplicated; Translations: [Nicotine dependence, unspecified, uncomplicated] Onset: 2 Chronic Superficial injury; contusion (10 sources) Contusion of knee; Translations: [Contusion of [...] loss of consciousness Onset: 06-16-2003 11-18-2013 Episodic Other connective tissue disease (1 source) Bicipital tendinitis, right shoulder; Translations: [Bicipital tendinitis, right shoulder] Onset: 09-02-2024 Episodic Sprains and strains (20 sources) Strain of knee; Translations: [Strain of unspecified muscle(s) and tendon(s) at lower leg level, left leg, initial encounter] Onset: 04-25-2022 Episodic Unclassified (1 source) HERNIA//HERNIA, UMBILICAL Onset: 12-16-2016 Results Test Name Value Interpretation Reference Range Facility Emergency Department Summary on 12-07-2024 Emergency Department Summary [facility] Medical Records Department [address] [place] [address] Emergency Department Summary 12/07/24 MR#: [id number] Acct: [id number] Name: PATRICK KOROMA Rep #: [id number] : 1980 44 From: Guevara Choi MD PCP: ERIC Anaya Status:REG ER Location: ED HPI History of Present Illness Chief Complaint: Upper Extremity Injury Informant: patient Narrative Narrative: During 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 Yordw-fnnc-xvrwshzv. [facility] Medical History Seroma after procedure Influenza [...] / Time adhesive tape Allergy Hives Verified 12/06/24 23:20 cephalexin monohydrate (From Allergy Anaphylaxis Verified 12/06/24 23:20 Keflex) levetiracetam (From Keppra) Allergy Hives Verified 12/06/24 23:20 morphine Allergy Shortness Verified 12/06/24 23:20 of breath naproxen (From Naprosyn) Allergy Hives Verified 12/06/24 23:20 Family History Grandmother Arthritis Mother Arthritis Seizures [...] weakness EXAM Physical Exam Const Vital Signs: 12/06/24 23:19 Temperature 96.9 F L Temperature Source Temporal Pulse Rate 112 H Respiratory Rate 16 Blood Pressure 155/91 H Blood Pressure Mean 112 Pulse Ox 99 Positive well nourished and well developed General Appearance ED: well developed and NAD Neck full ROM and supple Back/Spine normal ROM and normal to inspection Extremity Extremity Narrative: Right hand: There is an abrasion across the middle of the right thumb fingernail at the radial aspect. There is no subungual hematoma. The IPJ and the distal phalanx are tender but there is no swelling or deformity. There is no tenderness proximal to this including the MCPJ. There is an abrasion at the lateral aspect of the proximal phalanx of the fifth finger, but there is no bony tenderness and there is no tenderness throughout the hand otherwise. Has full range of motion including all tendons. Neuro oriented x3, no focal motor deficits and no sensory deficits noted Sensorium / Orientation: alert Psych mental status grossly normal and thought process normal Skin no wounds Rashes: no rashes MDM MDM MDM Narrative Medical decision making narrative: Three-view x-ray series of the right hand on my interpretation show no acute fractures or dislocation. Radiology in agreement. With regards to his nail, there does appear to be a slight amount of damage to it but it appears partial-thickness and superficial. There does not appear to be damage to the nailbed and there does not appear to be damage to the cuticle or the nail root. Patient states he is concerned he may lose his nail. I told him that is possible but not definitive, and there is no subungual hematoma for us to treat or trephinate here. At this time I recommend supportive care with a cage splint for his thumb so he can continue to work at his request, I think that is reasonable. Radiography Diagnostic Testing: Clinical Impression(s) from Imaging Studies Hand X-Ray 12/06/24 23:23 IMPRESSION: No acute osseous abnormality of the right hand. Reading Location: [id number] Discharge Plan Triage Chief Complaint: Upper Extremity Injury ED Provider: Guevara Choi Dx/Rx/DC Orders Clinical Impression: Contusion of right thumb with damage to nail, initial encounter Instructions: ED Finger or Toe Contusion Prescriptions: No Action NK Primary Care Provider: Viola Starkey NP Referrals: Viola Starkey NP, PACKAGE SEALER MACHINE-C [Primary Care Provider] - 10-14 Days if not better Print La (more content not included)... [facility] Hand Min 3 Viewson Hand Min 3 Views [facility] Imaging Services [address] [place], [place] [id number] Hand Min 3 Views MR#: [id number] Acct: [id number] Name: PATRICK KOROMA Rep #: [id number] : 1980 M 44 From: Stephan Ba MD PCP: ERIC Anaya Status: PRE ER Study: Hand Min 3 Views Date of Exam: 12/06/24 Exam# [id number] Ordering Dr: Guevara Choi MD PROCEDURE: HAND MIN 3 VIEWS 12/06/2024 REASON FOR EXAM: INJURY TECHNIQUE: HAND MIN 3 VIEWS COMPARISON: None FINDINGS: No fracture or traumatic malalignment. Joint spaces are predominantly maintained. Bone mineral density is subjectively normal. The soft tissues are unremarkable. RAD/Hand Min 3 Views IMPRESSION: No acute osseous abnormality of the right hand. Reading Location: [id number] CC: ERIC Starkey; Dr. Guevara Choi MD Aircraft Charter Dispatcher: Signed [facility] Clavicleon 09-19-2024 Clavicle [facility] Imaging Services [address] [place], [place] [id number] Clavicle MR#: [id number] Acct: [id number] Name: PATRICK KOROMA Rep #: [id number] : 1980 M 44 From: Kalli Tena DO PCP: ERIC Anaya Status: REG ER Study: Clavicle Date of Exam: 09/19/24 Exam# [id number] Ordering Dr: Brian Maldonado MD PROCEDURE: CLAVICLE 09/19/2024 REASON FOR EXAM: TRAUMA TECHNIQUE: Two views of the right clavicle were obtained COMPARISON: None FINDINGS: Bones: No acute fracture. Joints: Joint spaces are preserved. Soft tissues: No soft tissue abnormality. RAD/Clavicle IMPRESSION: NO EVIDENCE OF CLAVICLE FRACTURE Reading [facility] CC: PACKAGE SEALER MACHINE-C Viola Starkey; Dr. Brian Maldonado MD Aircraft Charter Dispatcher: Signed [facility] Emergency Department Summary on 09-19-2024 Emergency Department Summary [facility] Medical Records Department [address] [place] [address] Emergency Department Summary 09/19/24 MR#: [id number] Acct: [id number] Name: PATRICK KOROMA Rep #: [id number] : 1980 44 From: Brian Maldonado MD PCP: ERIC Anaya Status:REG ER Location: ED HPI History of Present Illness Chief Complaint: Upper Extremity Injury Narrative Narrative: 44-year-old male, plasw-qyum-suptgfez, presents with injury to his right shoulder [...] raise his right arm. Denies other injuries. PFSH [facility] Medical History Seroma after procedure Influenza [...] clavicle and shoulder pain worse with movement. Ilqou-zlvh-jwgpmakx. Denies hitting of his head or loss [...] AC joint separation. Patient was given 1 Elsah tablet here for analgesia and x-rays obtained [...] not improving. I feel he can take nljg-crv-lrjbdkz medications for analgesia. Return instructions to the emergency department were reviewed. Disposition is discharged home in stable condition. History Recor (more content not included)... [facility] Shoulder min 2 Viewson 09-19 Shoulder min 2 Views [facility] Imaging Services [address] [place], [place] [address] Shoulder min 2 Views MR#: [id number] Acct: [id number] Name: PATRICK KOROMA Rep #: [id number] : 1980 M 44 From: Kalli Tena DO PCP: ERIC Anaya Status: REG ER Study: Shoulder min 2 Views Date of Exam: 09/19/24 Exam# [id number] Ordering Dr: Brian Maldonado MD PROCEDURE: SHOULDER MIN 2 VIEWS 09/19/2024 REASON FOR EXAM: TRAUMA TECHNIQUE: 4 view(s) of the right shoulder COMPARISON: None FINDINGS: Bones: No acute fracture. Joints: Normal alignment of the acromioclavicular and glenohumeral joints. Soft tissues: Soft tissues are unremarkable. Other: RAD/Shoulder min 2 Views IMPRESSION: NO ACUTE FRACTURE OR DISLOCATION. Reading Location: [facility] CC: ERIC Starkey; Dr. Brian Maldonado MD Aircraft Charter Dispatcher: Signed [facility] .Auto Diffon 09-08-2024 Basophil, Absolute 0.1 10 3/mcL Normal 0.0-0.2 [facility] Comment on above: Performed By: #### A DIFF, CMP, CBC, LIPID, GFR, ANEU #### [address] [address] Basophils/100 WBC (Bld) 1.0 % Normal 0.0-2.5 [facility] Comment on above: Performed By: #### A DIFF, CMP, CBC, LIPID, GFR, ANEU #### [address] [address] Eosinophil, Absolute 0.1 10 3/mcL Normal 0.0-0.7 [facility] Comment on above: Performed By: #### A DIFF, CMP, CBC, LIPID, GFR, ANEU #### [address] [address] Eosinophils/100 WBC (Bld) 0.8 % Normal 0.0-7.0 [facility] Comment on above: Performed By: #### A DIFF, CMP, CBC, LIPID, GFR, ANEU #### [address] [address] Lymphocyte, Absolute 2.2 10 3/mcL Normal 0.9-4.3 [facility] Comment on above: Performed By: #### A DIFF, CMP, CBC, LIPID, GFR, ANEU #### [address] [address] Lymphocytes/100 WBC (Bld) 17.9 % Low 20.0-40.0 [facility] Comment on above: Performed By: #### A DIFF, CMP, CBC, LIPID, GFR, ANEU #### [address] [address] Monocyte, Absolute 0.8 10 3/mcL Normal 0.1-1.4 [facility] Comment on above: Performed By: #### A DIFF, CMP, CBC, LIPID, GFR, ANEU #### [address] [address] Monocytes/100 WBC (Bld) 6.5 % Normal 2.0-13.0 [facility] Comment on above: Performed By: #### A DIFF, CMP, CBC, LIPID, GFR, ANEU #### [address] [address] Neutrophils/100 WBC (Bld) 73.8 % Normal 50.0-75.0 [facility] Comment on above: Performed By: #### A DIFF, CMP, CBC, LIPID, GFR, ANEU #### [address] [address] .GFRon 09-08-2024 Estimated Glomerular Filtration Rate 99 ml/min/1.73sqm Normal [facility] Comment on above: Result Comment: Stages [...] DIFF, CMP, CBC, LIPID, GFR, ANEU #### [address] [address] .NEUABSon 09-08-2024 Neutrophil, Absolute 9.2 10 3/mcL High 2.3-8.1 [facility] Comment on above: Performed By: #### A DIFF, CMP, CBC, LIPID, GFR, ANEU #### [address] [address] CBCon 09-08-2024 Erythrocyte distribution width (RBC) [Ratio] 13.3 % Normal 11.5-15.5 [facility] Comment on above: Performed By: #### A DIFF, CMP, CBC, LIPID, GFR, ANEU #### [address] [address] Hematocrit (Bld) [Volume fraction] 45.6 % Normal 40.0-52.0 [facility] Comment on above: Performed By: #### A DIFF, CMP, CBC, LIPID, GFR, ANEU #### [place] [address] Hgb 15.3 G/dL Normal 13.0-17.5 [facility] Comment on above: Performed By: #### A DIFF, CMP, CBC, LIPID, GFR, ANEU #### [place] [id number] MCH (RBC) [Entitic mass] 31.0 pg Normal 27.0-33.0 [facility] Comment on above: Performed By: #### A DIFF, CMP, CBC, LIPID, GFR, ANEU #### [address] [address] MCHC 33.5 G/dL Normal 32.0-36.0 [facility] Comment on above: Performed By: #### A DIFF, CMP, CBC, LIPID, GFR, ANEU #### [address] [address] MCV (RBC) [Entitic vol] 92.3 fL Normal 81.0-100.0 [facility] Comment on above: Performed By: #### A DIFF, CMP, CBC, LIPID, GFR, ANEU #### [address] [address] Platelet 297 10 3/mcL Normal 150-450 [facility] Comment on above: Performed By: #### A DIFF, CMP, CBC, LIPID, GFR, ANEU #### [address] [address] Platelet mean volume (Bld) [Entitic vol] 8.0 fL Normal 6.4-10.5 [facility] Comment on above: Performed By: #### A DIFF, CMP, CBC, LIPID, GFR, ANEU #### [address] [address] RBC 4.94 10 6/mcL Normal 4.50-6.00 [facility] Comment on above: Performed By: #### A DIFF, CMP, CBC, LIPID, GFR, ANEU #### [place] [id number] WBC 12.5 10 3/mcL High 4.5-10.8 [facility] Comment on above: Performed By: #### A DIFF, CMP, CBC, LIPID, GFR, ANEU #### [place] [address] CMPon 09-08-2024 Albumin Level 3.7 G/dL Normal 3.5-5.0 [facility] Comment on above: Performed By: #### A DIFF, CMP, CBC, LIPID, GFR, ANEU #### [place] [address] Albumin/Globulin [Mass ratio] 0.9 {ratio} Low 1.1-2.5 [facility] Comment on above: Performed By: #### A DIFF, CMP, CBC, LIPID, GFR, ANEU #### [place] [address] ALP [Catalytic activity/Vol] 51 U/L Normal 40-135 [facility] Comment on above: Performed By: #### A DIFF, CMP, CBC, LIPID, GFR, ANEU #### [address] [address] ALT [Catalytic activity/Vol] 17 U/L Normal 16-63 [facility] Comment on above: Performed By: #### A DIFF, CMP, CBC, LIPID, GFR, ANEU #### [place] [address] AST [Catalytic activity/Vol] 15 U/L Normal 10-40 [facility] Comment on above: Performed By: #### A DIFF, CMP, CBC, LIPID, GFR, ANEU #### [address] [address] Bili Total 0.2 mg/dL Normal 0.2-1.0 [facility] Comment on above: Result Comment: Use of this assay is not recommended for patients undergoing treatment with eltrombopag due to the potential for falsely elevated results. Performed By: #### A DIFF, CMP, CBC, LIPID, GFR, ANEU #### [place] [address] BUN/Creatinine Ratio 11 ratio Normal 7-27 [facility] Comment on above: Performed By: #### A DIFF, CMP, CBC, LIPID, GFR, ANEU #### [place] [address] Calcium [Mass/Vol] 9.7 mg/dL Normal 8.4-10.2 [facility] Comment on above: Performed By: #### A DIFF, CMP, CBC, LIPID, GFR, ANEU #### [place] [address] Chloride [Moles/Vol] 99 mmol/L Normal 98-107 [facility] Comment on above: Performed By: #### A DIFF, CMP, CBC, LIPID, GFR, ANEU #### [place] [address] CO2 [Moles/Vol] 27 mmol/L Normal 22-29 [facility] Comment on above: Performed By: #### A DIFF, CMP, CBC, LIPID, GFR, ANEU #### [place] [address] Creatinine [Mass/Vol] 0.96 mg/dL Normal 0.70-1.30 [facility] Comment on above: Result Comment: Test ing performed on Siemens Dimension EXL analyzer using a modified kinetic Elyse technique. Performed By: #### A DIFF, CMP, CBC, LIPID, GFR, ANEU #### [place] [address] Electrolyte Balance 8.0 mEq/L Normal 4.0-15.0 [facility] Comment on above: Performed By: #### A DIFF, CMP, CBC, LIPID, GFR, ANEU #### [address] [address] Globulin 4.0 G/dL High 1.5-3.8 [facility] Comment on above: Performed By: #### A DIFF, CMP, CBC, LIPID, GFR, ANEU #### [address] [address] Glucose [Mass/Vol] 91 mg/dL Normal 70-105 [facility] Comment on above: Performed By: #### A DIFF, CMP, CBC, LIPID, GFR, ANEU #### [address] [address] Potassium [Moles/Vol] 4.4 mmol/L Normal 3.5-5.1 [facility] Comment on above: Performed By: #### A DIFF, CMP, CBC, LIPID, GFR, ANEU #### [place] [address] Sodium [Moles/Vol] 134 mmol/L Low 136-145 [facility] Comment on above: Performed By: #### A DIFF, CMP, CBC, LIPID, GFR, ANEU #### [address] [address] Total Protein 7.7 G/dL Normal 6.4-8.2 [facility] Comment on above: Performed By: #### A DIFF, CMP, CBC, LIPID, GFR, ANEU #### [address] [address] Urea nitrogen [Mass/Vol] 11 mg/dL Normal 7-18 [facility] Comment on above: Performed By: #### A DIFF, CMP, CBC, LIPID, GFR, ANEU #### [address] [address] LIPIDon 09-08-2024 Cholesterol [Mass/Vol] 177 mg/dL Normal 0-200 [facility] Comment on above: Result Comment: Chol esterol Reference Interval: Less than 200 Desirable 200-239 Borderline high risk 240 and above High risk Performed By: #### A DIFF, CMP, CBC, LIPID, GFR, ANEU #### [place] [address] [place], [place] [address] Cholesterol in HDL [Mass/Vol] 44 mg/dL Normal 40-60 [facility] Comment on above: Performed By: #### A DIFF, CMP, CBC, LIPID, GFR, ANEU #### [place] [address] [place], [place] [address] Cholesterol in LDL [Mass/Vol] 108 mg/dL Normal 0-130 [facility] Comment on above: Performed By: #### A DIFF, CMP, CBC, LIPID, GFR, ANEU #### [place] [address] [place], [place] [address] Triglyceride [Mass/Vol] 125 mg/dL Normal 0-150 [facility] Comment on above: Result Comment: Trig lyceride Reference Interval: Less than 150 Normal 150-199 Borderline high risk 200-499 High risk 500 or higher Very high risk Performed By: #### A DIFF, CMP, CBC, LIPID, GFR, ANEU #### [place] [address] [place], [place] [address] XR FOOT MINIMUM 3 VIEWS LEFT on [...] Date: 09/08/2024 12:53:40 AM Ordering Provider: SHANIKA Nelson [facility] Emergency Department Summary on 08-24-2024 Emergency Department Summary [facility] Medical Records Department [address] [place] [address] Emergency Department Summary 08/24/24 MR#: [id number] Acct: [id number] Name: PATRICK KOROMA Rep #: [id number] : 1980 44 From: Cristian Tate PCP: Care Physician,No Primary Status:DEP ER Location: ED HPI History of Present Illness Chief Complaint: Upper Extremity Injury Informant: patient Narrative Narrative: Ozkoo-argv-yudlxdiz male presents right shoulder injury 2 hours [...] surgical intervention. Prior similar symptoms: Yes PFSH PFS Medical History Seroma after procedure Influenza due [...] Medical decision (more content not included)... [facility] Shoulder min 2 Viewson 08-24 Shoulder min 2 Views [facility] Imaging Services [address] [place], [place] [address] Shoulder min 2 Views MR#: [id number] Acct: [id number] Name: PATRICK KOROMA Rep #: [id number] : 1980 M 44 From: Ke Mario PCP: Care Physician,No Primary Status: PRE ER Study: Shoulder min 2 Views Date of Exam: 08/24/24 Exam# [id number] Ordering Dr: Provider,Ed P. PROCEDURE: Right shoulder radiographs REASON FOR EXAM: PAIN, LOSS OF MOBILITY TECHNIQUE: Four views of the right shoulder COMPARISON: None. FINDINGS: See impression RAD/Shoulder min 2 Views IMPRESSION: Negative for acute fracture or malalignment. 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 Mild acromioclavicular joint osteoarthritis. Reading Location: [facility] CC: ED PHYSICIAN PROVIDER; No Primary Care Physician Aircraft Charter Dispatcher: Signed [facility] Study Interpretation of outs augusta studyon 06-29-2024 Outside images for comparison or treatment purposes, not interpreted by Radiologists. IMAGING CT ABDOMEN/PELVIS W/O CONTRA Dalton 05-16-2024 CT ABDOMEN/PELVIS W/O CONTRAST ORIGINAL EXAMINATION: [...] 05/16/2024 10:27:09 PM Ordering Provider: RADHA Nelson [facility] Emergency Department Summary on 02-24-2024 Emergency Department Summary [facility] Medical Records Department [address] [place] [address] Emergency Department Summary 02/24/24 MR#: [id number] Acct: [id number] Name: PATRICK KOROMA Rep #: [id number] : 1980 44 From: Guevara Choi MD PCP: Care Physician,No Primary Status:[facility] ER Location: ED HPI History of Present Illness Chief Complaint: Lower Extremity Injury Informant: patient Narrative Narrative: Patient was working at the local [employer], he jumped down off of an elevated surface landing on his feet, with sudden onset of pain followed by swelling in the left midfoot. He did not twist anything. Denies any ankle pain. To bear weight but hurts. Denies any pain or injury elsewhere. [facility] Medical History Seroma after procedure Influenza [...] 0:12 EDT Reading Location ID and State: [facility] / [place] Tel , Service support , Discharge Plan Triage Chief Complaint: Lower Extremity Injury ED Provider: Guevara Choi Dx/ (more content not included)... [facility] Foot min 3 Viewson 4 Foot min 3 Views [facility] Imaging Services [address] [place] [address] Foot min 3 Views MR#: [id number] Acct: [id number] Name: PATRICK KOROMA FERMÍN Rep #: [id number] : 1980 M 44 From: Vineet Segura PCP: Care Physician,No Primary Status: REG ER Study: Foot min 3 Views Date of Exam: 02/24/24 Exam# [id number] Ordering Dr: Guevara Choi MD [id number] INDICATION: injury EXAMINATION/TECHNIQUE : X-RAY - LEFT [...] 0:12 EDT Reading Location ID and State: [facility] / [place] Tel , Service support , CC: Dr. Guevara Choi MD; No Primary Care Physician Aircraft Charter Dispatcher: Signed [facility] CNCOon 10-21-2023 CNCO Letter Text Normal [facility] CNPNon 10-10-2023 CNPN Telephone (SPNSMN) PATRICK KOROMA ([id number]) 1980 M Date Time Provider Department 10/10/23 JULIOCESAR BORRERO SPNSMN During your visit today, we recorded the [...] message sent. Christy Rodrigez RN BSN Nurse Embossing Tool Setter Christy Rodrigez RN 10/21/2023 10:47 AM Signed [...] Dr. Hannah. Christy Rodrigez RN BSN Nurse Embossing Tool Setter Allergies As of Date: 10/10/2023 Noted Allergy [...] Status:Closed by CHRISTY RODRIGEZ on 11/04/23 Normal [facility] CONFIRM BLOOD TYPEon 024 ABO B Normal [facility] Comment on above: Order Comment: Speci men Type: BLOOD SPECIMEN [facility] Address: [address] [place] [address] Performed By: #### C ONABO #### [facility] CLIA [id number] [address] [place] [address] [place] Rh Nom (Bld) Positive Normal [facility] Comment on above: Order Comment: Speci men Type: BLOOD SPECIMEN [facility] Address: [address] [place] [address] Performed By: #### C ONABO #### [facility] CLIA [id number] [address] [place] [address] [place] NURSING PROGon 10-07-2023 NURSING PROG HNO ID: [id number] Author: LESLIE JARRETT RN Service: ? Author [...] was completed by: Leslie Jarrett RN Normal [facility] CBC W Auto Differential pane l (Bld)on 09-16-2023 Basophils (Bld) [#/Vol] 0.06 10*3/uL Normal <0.11 [facility] Comment on above: Order Comment: Speci men Type: BLOOD SPECIMEN [facility] Address: [address] [place] [address] Performed By: #### C ONABO #### [facility] CLIA [id number] [address] [place] [address] [place] Basophils/100 WBC (Bld) 0.6 % Normal [facility] Comment on above: Order Comment: Speci men Type: BLOOD SPECIMEN [facility] Address: [address] [place] [address] Performed By: #### C ONABO #### [facility] CLIA [id number] [address] [place] [address] [place] Differential cell count method Nom (Bld) Auto Normal [facility] Comment on above: Order Comment: Speci men Type: BLOOD SPECIMEN [facility] Address: [address] [place] [address] Performed By: #### C ONABO #### [facility] CLIA [id number] [address] [place] [address] [place] Eosinophils (Bld) [#/Vol] 0.09 10*3/uL Normal <0.46 [facility] Comment on above: Order Comment: Speci men Type: BLOOD SPECIMEN [facility] Address: [address] [place] [address] Performed By: #### C ONABO #### [facility] CLIA [id number] [address] [place] [address] [place] Eosinophils/100 WBC (Bld) 1.0 % Normal [facility] Comment on above: Order Comment: Speci men Type: BLOOD SPECIMEN [facility] Address: [address] [place] [address] Performed By: #### C ONABO #### [facility] CLIA [id number] [address] [place] [address] [place] Erythrocyte distribution width (RBC) [Ratio] 12.5 % Normal 11.5-15.0 [facility] Comment on above: Order Comment: Speci men Type: BLOOD SPECIMEN [facility] Address: [address] [place] [address] Performed By: #### C ONABO #### [facility] CLIA [id number] [address] [place] [address] [place] Hematocrit (Bld) [Volume fraction] 47.3 % Normal 39.0-51.0 [facility] Comment on above: Order Comment: Speci men Type: BLOOD SPECIMEN [facility] Address: [address] [place] [address] Performed By: #### C ONABO #### [facility] CLIA [id number] [address] [place] [address] [place] Hemoglobin (Bld) [Mass/Vol] 16.1 g/dL Normal 13.0-17.0 [facility] Comment on above: Order Comment: Speci men Type: BLOOD SPECIMEN [facility] Address: [address] [place] [address] Performed By: #### C ONABO #### [facility] CLIA [id number] [address] [place] [address] [place] Immature granulocytes (Bld) [#/Vol] 0.03 10*3/uL Normal <0.10 [facility] Comment on above: Order Comment: Speci men Type: BLOOD SPECIMEN [facility] Address: [address] [place] [address] Performed By: #### C ONABO #### [facility] CLIA [id number] [address] [place] [address] [place] Immature granulocytes/100 WBC (Bld) 0.3 % Normal [facility] Comment on above: Order Comment: Speci men Type: BLOOD SPECIMEN [facility] Address: [address] [place] [address] Performed By: #### C ONABO #### [facility] CLIA [id number] [address] [place] [address] [place] Lymphocytes (Bld) [#/Vol] 2.61 10*3/uL Normal 1.00-4.00 [facility] Comment on above: Order Comment: Speci men Type: BLOOD SPECIMEN [facility] Address: [address] [place] [address] Performed By: #### C ONABO #### [facility] CLIA [id number] [address] [place] [address] [place] Lymphocytes/100 WBC (Bld) 28.2 % Normal [facility] Comment on above: Order Comment: Speci men Type: BLOOD SPECIMEN [facility] Address: [address] [place] [address] Performed By: #### C ONABO #### [facility] CLIA [id number] [address] [place] [address] [place] MCH (RBC) [Entitic mass] 31.0 pg Normal 26.0-34.0 [facility] Comment on above: Order Comment: Speci men Type: BLOOD SPECIMEN [facility] Address: [address] [place] [address] Performed By: #### C ONABO #### [facility] CLIA [id number] [address] [place] [address] [place] MCHC (RBC) [Mass/Vol] 34.0 g/dL Normal 30.5-36.0 [facility] Comment on above: Order Comment: Speci men Type: BLOOD SPECIMEN [facility] Address: [address] [place] [address] Performed By: #### C ONABO #### [facility] CLIA [id number] [address] [place] [address] [place] MCV (RBC) [Entitic vol] 91.1 fL Normal 80.0-100.0 [facility] Comment on above: Order Comment: Speci men Type: BLOOD SPECIMEN [facility] Address: [address] [place] [address] Performed By: #### C ONABO #### [facility] CLIA [id number] [address] [place] [address] [place] Monocytes (Bld) [#/Vol] 0.51 10*3/uL Normal <0.87 [facility] Comment on above: Order Comment: Speci men Type: BLOOD SPECIMEN [facility] Address: [address] [place] [address] Performed By: #### C ONABO #### [facility] CLIA [id number] [address] [place] [address] [place] Monocytes/100 WBC (Bld) 5.5 % Normal [facility] Comment on above: Order Comment: Speci men Type: BLOOD SPECIMEN [facility] Address: [address] [place] [address] Performed By: #### C ONABO #### [facility] CLIA [id number] [address] [place] [address] [place] Neutrophils (Bld) [#/Vol] 5.94 10*3/uL Normal 1.45-7.50 [facility] Comment on above: Order Comment: Speci men Type: BLOOD SPECIMEN [facility] Address: [address] [place] [address] Performed By: #### C ONABO #### [facility] CLIA [id number] [address] [place] [address] [place] Neutrophils/100 WBC (Bld) 64.4 % Normal [facility] Comment on above: Order Comment: Speci men Type: BLOOD SPECIMEN [facility] Address: [address] [place] [address] Performed By: #### C ONABO #### [facility] CLIA [id number] [address] [place] [address] [place] Nucleated RBC (Bld) [#/Vol] 10*3/uL Normal <0.01 [facility] Comment on above: Order Comment: Speci men Type: BLOOD SPECIMEN [facility] Address: [address] [place] [address] Performed By: #### C ONABO #### [facility] CLIA [id number] [address] [place] [address] [place] Nucleated RBC/100 WBC (Bld) [Ratio] 0.0 /100 WBC Normal [facility] Comment on above: Order Comment: Speci men Type: BLOOD SPECIMEN [facility] Address: [address] [place] [address] Performed By: #### C ONABO #### [facility] CLIA [id number] [address] [place] [address] [place] Platelet mean volume (Bld) [Entitic vol] 9.6 fL Normal 9.0-12.7 [facility] Comment on above: Order Comment: Speci men Type: BLOOD SPECIMEN [facility] Address: [address] [place] [address] Performed By: #### C ONABO #### [facility] CLIA [id number] [address] [place] [address] [place] Platelets (Bld) [#/Vol] 307 10*3/uL Normal 150-400 [facility] Comment on above: Order Comment: Speci men Type: BLOOD SPECIMEN [facility] Address: [address] [place] [address] Performed By: #### C ONABO #### [facility] CLIA [id number] [address] [place] [address] [place] RBC (Bld) [#/Vol] 5.19 10*6/uL Normal 4.20-6.00 [facility] Comment on above: Order Comment: Speci men Type: BLOOD SPECIMEN [facility] Address: [address] [place] [address] Performed By: #### C ONABO #### [facility] CLIA [id number] [address] [place] [address] [place] WBC (Bld) [#/Vol] 9.24 10*3/uL Normal 3.70-11.00 [facility] Comment on above: Order Comment: Speci men Type: BLOOD SPECIMEN [facility] Address: [address] [place] [address] Performed By: #### C ONABO #### [facility] CLIA [id number] [address] [place] [address] [place] Comprehensive metabolic 2000 panelon 09-16-2023 Albumin [Mass/Vol] 4.1 g/dL Normal 3.9-4.9 [facility] Comment on above: Order Comment: Speci men Type: BLOOD SPECIMEN [facility] Address: [address] [place] [address] Performed By: #### C ONABO #### [facility] CLIA [id number] [address] [place] [address] [place] ALP [Catalytic activity/Vol] 46 U/L Normal 38-113 [facility] Comment on above: Order Comment: Speci men Type: BLOOD SPECIMEN [facility] Address: [address] [place] [address] Performed By: #### C ONABO #### [facility] CLIA [id number] [address] [place] [address] [place] ALT [Catalytic activity/Vol] 21 U/L Normal 10-54 [facility] Comment on above: Order Comment: Speci men Type: BLOOD SPECIMEN [facility] Address: [address] [place] [address] Performed By: #### C ONABO #### [facility] CLIA [id number] [address] [place] [address] [place] Anion gap [Moles/Vol] 12 mmol/L Normal 9-18 [facility] Comment on above: Order Comment: Speci men Type: BLOOD SPECIMEN [facility] Address: [address] [place] [address] Performed By: #### C ONABO #### [facility] CLIA [id number] [address] [place] [address] [place] AST [Catalytic activity/Vol] 19 U/L Normal 14-40 [facility] Comment on above: Order Comment: Speci men Type: BLOOD SPECIMEN [facility] Address: [address] [place] [address] Performed By: #### C ONABO #### [facility] CLIA [id number] [address] [place] [address] [place] Bilirubin [Mass/Vol] 0.2 mg/dL Normal 0.2-1.3 [facility] Comment on above: Order Comment: Speci men Type: BLOOD SPECIMEN [facility] Address: [address] [place] [address] Performed By: #### C ONABO #### [facility] CLIA [id number] [address] [place] [address] [place] Calcium [Mass/Vol] 9.1 mg/dL Normal 8.5-10.2 [facility] Comment on above: Order Comment: Speci men Type: BLOOD SPECIMEN [facility] Address: [address] [place] [address] Performed By: #### C ONABO #### [facility] CLIA [id number] [address] [place] [address] [place] Chloride [Moles/Vol] 104 mmol/L Normal 97-105 [facility] Comment on above: Order Comment: Speci men Type: BLOOD SPECIMEN [facility] Address: [address] [place] [address] Performed By: #### C ONABO #### [facility] CLIA [id number] [address] [place] [address] [place] CO2 [Moles/Vol] 20 mmol/L Low 22-30 [facility] Comment on above: Order Comment: Speci men Type: BLOOD SPECIMEN [facility] Address: [address] [place] [address] Performed By: #### C ONABO #### [facility] CLIA [id number] [address] [place] [address] [place] Creatinine [Mass/Vol] 0.73 mg/dL Normal 0.73-1.22 [facility] Comment on above: Order Comment: Speci men Type: BLOOD SPECIMEN [facility] Address: [address] [place] [address] Performed By: #### C ONABO #### [facility] CLIA [id number] [address] [place] [address] [place] Creatinine and Glomerular filtration rate.predicted panel (S/P/Bld) 115 mL/min/1.73m??? Normal >=60 [facility] Comment on above: Order Comment: Speci men Type: BLOOD SPECIMEN [facility] Address: [address] [place] [address] Result Comment: Katie mated Glomerular Filtration Rate [...] ONABO #### [facility] CLIA [id number] [address] [place] [address] [place] Glucose [Mass/Vol] 124 mg/dL High 74-99 [facility] Comment on above: Order Comment: Speci men Type: BLOOD SPECIMEN [facility] Address: [address] [place] [address] Result Comment: The [place] [employer] (ADA) provides guidance for cutoff [...] Standards of Medical Care in Diabetes 2016, [place] [employer]. Diabetes Care. 2016.39(Suppl 1). Performed By: #### C ONABO #### [facility] CLIA [id number] [address] [place] [address] [place] Potassium [Moles/Vol] 4.2 mmol/L Normal 3.7-5.1 [facility] Comment on above: Order Comment: Speci men Type: BLOOD SPECIMEN [facility] Address: [address] [place] [address] Performed By: #### C ONABO #### [facility] CLIA [id number] [address] [place] [address] [place] Protein [Mass/Vol] 6.8 g/dL Normal 6.3-8.0 [facility] Comment on above: Order Comment: Speci men Type: BLOOD SPECIMEN [facility] Address: [address] [place] [address] Performed By: #### C ONABO #### [facility] CLIA [id number] [address] [place] [address] [place] Sodium [Moles/Vol] 136 mmol/L Normal 136-144 [facility] Comment on above: Order Comment: Speci men Type: BLOOD SPECIMEN [facility] Address: [address] [place] [address] Performed By: #### C ONABO #### [facility] CLIA [id number] [address] [place] [address] STATES OF [facility] Urea nitrogen [Mass/Vol] 9 mg/dL Normal 9-24 [facility] Comment on above: Order Comment: Speci men Type: BLOOD SPECIMEN [facility] Address: [address] [place] [address] Performed By: #### C ONABO #### [facility] CLIA [id number] [address] [place] [address] OF [facility] ECG COMPLETEon 09-16-2023 ECG COMPLETE Ventricular Rate : 9 6 BPM Atrial Rate : 96 BPM P-R Interval : 136 ms QRS Duration : 94 ms Q-T Interval : 362 ms QTC Calculation(Bazett) : 457 ms Calculated P [place] : 30 degrees Calculated R [place] : 19 degrees Calculated T [place] : 18 degrees NORMAL SINUS RHYTHM NORMAL ECG Confirmed by MD SHILOH, PhD, MATTHEW ([id number]) on 09/25/2023 1:38:47 PM NAME : PATRICK KOROMA PID : [id number] : 1980 Gender : Male Race : ORD : [id number] Procedure Date : Sep 16 2023 12:20:58 Edit Date : Sep 25 2023 13:38:51 Diagnosis: NORMAL SINUS RHYTHM NORMAL ECG Confirmed by MD SHILOH, PhD, MATTHEW ([id number]) on 09/25/2023 1:38:47 PM Test Reason : Location : 119 : A17 A17 Overread By : MD SHILOH, PhD,MATTHEW Edited By : MD SHILOH, PhD,MATTHEW Referred By : JESE RICHARDSON Acquired by : ESAU MCGARRY [facility] HISTORY PHYSICALon HISTORY PHYSICAL HNO ID: [id number] Author: DIANA GRAHAM PA-C Service: ? Author Type: Physician Unstacker Type: H&P Filed: 09/16/2023 12:27 Note Text: [...] COVID-19 Immunization Status Overdue - Covid-19 Vaccine () Overdue since 02/14/2023 04/30/2021 Imm Admin: COVID-19 [...] requiring medication, no history of angina, CHF, MS, cardiac surgery or stents. Denies rest pain, [...] 1.00 Year (more content not included)... [facility] [facility] PT panel Coag (PPP)on 2023 INR Coag (PPP) [Relative time] 0.9 {INR} Normal 0.9-1.3 [facility] Comment on above: Order Comment: Speci men Type: BLOOD SPECIMEN [facility] Address: [address] [place] [address] Result Comment: Bisi min K Antagonist (VKA) Therapeutic Range: INR 2 to 3 (Target INR of 2.5) Note: For patients treated with VKA drugs, such as warfarin, the [employer] 2012 Guideline recommends [...] Chest 2012, 141:7S-47S Sharla RA, et al. [facility] 2017, 70: 252-289 Performed By: #### C ONABO #### [facility]LOOD BANK CLIA [id number] [address] [place] [address] [place] PT Coag (PPP) [Time] 10.1 s Normal 9.7-13.0 [facility] Comment on above: Order Comment: Vikash vasquez Type: BLOOD SPECIMEN [facility] Facility[facility] Address: [address] [place] [address] Performed By: #### C ONABO #### [facility] CLIA [id number] [address] [place] [address] OF [place] TYPE AND SCREEN,30 DAYon ABO B Normal [facility] Comment on above: Order Comment: Vikash vasquez Type: BLOOD SPECIMEN [facility] Address: [address] [place] [address] Performed By: #### T SCR30 #### [facility] B[facility] CLIA [id number] [address] [place] [address] [place] HISTORICAL AB SCR STATUS Negative Normal [facility] Comment on above: Order Comment: Speci men Type: BLOOD SPECIMEN [facility] Address: [address] [place] [address] Performed By: #### T SCR30 #### [facility]LOOD B[facility] CLIA [id number] [address] [place] [address] [place] Rh Nom (Bld) Positive Normal [facility] Comment on above: Order Comment: Speci men Type: BLOOD SPECIMEN [facility] Address: [address] [place] [address] Performed By: #### T SCR30 #### [facility]LO[facility] CLIA [id number] [address] [place] [address] [place] aPTT PPPon 09-16-2023 aPTT Coag (PPP) [Time] 29.1 s Normal 23.0-32.4 [facility] Comment on above: Order Comment: Speci men Type: BLOOD SPECIMEN [facility] Address: [address] [place] [address] Performed By: #### C ONABO #### [facility]LOOD B[facility] CLIA [id number] [address] [place] [address] OF [place] CNOVon 08-06-2023 CNOV Office Visit (NPRC21 ) PATRICK KOROMA ([id number]) 1980 M Date Time Provider Department 08/06/23 9:30 AM KELLEY MERAZ [facility] During your visit today, we recorded the following information about you: Pulse Blood pressure Weight Height 107/minute 153/101 158.8 kg 1.88 m Kelley Meraz APRN.CURTAIN MENDER, DNP 08/06/2023 10:16 AM Signed In-Person Visit Present: patient [facility] Neurological [facility] August 06, 2023 Patrick Koroma is a 43 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 He was referred by Linda Griffiths CNP (General Surgery) [address] [place] [id number]. This consultation was shared with the referral source via the [facility] electronic medical record. The patient understanding [...] No current facility-administered medications for this visit. [facility] checked and validated. All prescriptions have been APPROPRIATELY filled. No suspicious activity was identified. 08/06/2023 by Kelley Meraz APRN.CURTAIN MENDER, DNP Functional Limitations: The patient has been [...] hematoma (HCC) (more content not included)... Normal [facility] CNOVon 07-07-2023 CNOV Office Visit (GENSMN ) PATRICK KOROMA ([id number]) 1980 [place] Date Time Provider Department 07/07/23 9:00 AM [...] Viviana Teresa MD 07/07/2023 9:35 AM Signed [facility] Abdominal [facility] - HISTORY AND PHYSICAL Chief Complaint: pain to the left of the hernia repair HPI: Patrick Koroma is a 43 year old male with PMH post traumatic seizure disorder, s/p appendectomy and multiple hernia repair who presents with pain lateral to the hernia repair site On 11/22/21 he had a robotic assisted repair of recurrent ventral hernia at [place] with Dr Aaron Duque with removal of [...] is warm (more content not included)... Normal [facility] .Auto Diffon 06-28-2023 Basophil, Absolute 0.0 10 3/mcL Normal 0.0-0.2 [facility] ([place]) Comment on above: Performed By: #### C BC, CMP, ADIFF, MDW, LIP, ANEU, GFR #### [address] [address] Basophils/100 WBC (Bld) 0.2 % Normal 0.0-2.5 [facility] ([place]) Comment on above: Performed By: #### C BC, CMP, ADIFF, MDW, LIP, ANEU, GFR #### [address] [address] Eosinophil, Absolute 0.2 10 3/mcL Normal 0.0-0.4 [facility] ([place]) Comment on above: Performed By: #### C BC, CMP, ADIFF, MDW, LIP, ANEU, GFR #### [address] [address] Eosinophils/100 WBC (Bld) 2.4 % Normal 0.0-7.0 [facility] ([place]) Comment on above: Performed By: #### C BC, CMP, ADIFF, MDW, LIP, ANEU, GFR #### [address] [address] Lymphocyte, Absolute 2.8 10 3/mcL Normal 0.8-3.9 [facility] ([place]) Comment on above: Performed By: #### C BC, CMP, ADIFF, MDW, LIP, ANEU, GFR #### [address] [address] Lymphocytes/100 WBC (Bld) 32.1 % Normal 10.0-50.0 [facility] ([place]) Comment on above: Performed By: #### C BC, CMP, ADIFF, MDW, LIP, ANEU, GFR #### [address] [address] Monocyte, Absolute 0.6 10 3/mcL Normal 0.2-1.0 [facility] ([place]) Comment on above: Performed By: #### C BC, CMP, ADIFF, MDW, LIP, ANEU, GFR #### [address] [address] Monocytes/100 WBC (Bld) 6.7 % Normal 1.7-13.0 [facility] ([place] Comment on above: Performed By: #### C BC, CMP, ADIFF, MDW, LIP, ANEU, GFR #### [address] [address] Neutrophils/100 WBC (Bld) 58.6 % Normal 37.0-80.0 [facility] ([place] Comment on above: Performed By: #### C BC, CMP, ADIFF, MDW, LIP, ANEU, GFR #### [address] [address] .GFRon 06-28-2023 GFR 110 ml/min/1.73sqm Normal [facility] ([place]) Comment on above: Result Comment: GFR Population [...] CORNELIA, KLARISSA, MDW, LIP, ANEU, GFR #### [address] [address] GFR Non- 91 ml/min/1.73sqm Normal [facility] ([place]) Comment on above: Result Comment: GFR Population [...] mL/min/1.73 square meters Performed By: #### C LANI, CORNELIA, KLARISSA, MDW, LIP, ANEU, GFR #### [address] [address] .MDWon 06-28-2023 Monocyte Distribution Width 20.24 High 0.00-20.00 [facility] ([place]) Comment on above: Result Comment: For adults in ED, MDW>20.0 may be associated with a higher risk of sepsis during the first 12hrs of hospital admission Performed By: #### C LANI, CORNELIA, KLARISSA, MDW, LIP, ANEU, GFR #### [address] [address] .NEUABSon 06-28-2023 Neutrophil, Absolute 5.2 10 3/mcL Normal 2.9-6.2 [facility] ([place]) Comment on above: Performed By: #### C BC, CORNELIA, KLARISSA, MDW, LIP, ANEU, GFR #### [address] [address] .Urinalysis Microscopic (AO) on 06-28-2023 UA Amorphus 2+ /hpf Normal [facility] ([place]) Comment on above: Performed By: #### C BC, CMP, ADIFF, MDW, LIP, ANEU, GFR #### [address] [address] UA Mucous Trace Normal [facility] ([place]) Comment on above: Performed By: #### C BC, CMP, ADIFF, MDW, LIP, ANEU, GFR #### [address] [address] UA RBC None Seen Normal None Seen [facility] ([place] Comment on above: Performed By: #### C BC, CMP, ADIFF, MDW, LIP, ANEU, GFR #### [address] [address] UA Squam Epithelial None Seen Normal None Seen [facility] ([place]) Comment on above: Performed By: #### C BC, CMP, ADIFF, MDW, LIP, ANEU, GFR #### [place] [address] UA WBC None Seen Normal None Seen [facility] ([place] Comment on above: Performed By: #### C BC, CMP, ADIFF, MDW, LIP, ANEU, GFR #### [place] [address] CBCon 06-28-2023 Erythrocyte distribution width (RBC) [Ratio] 13.5 % Normal 11.5-14.5 [facility]) Comment on above: Performed By: #### C BC, CMP, ADIFF, MDW, LIP, ANEU, GFR #### [address] [address] Hematocrit (Bld) [Volume fraction] 44.3 % Normal 42.0-52.0 [facility] ([place]) Comment on above: Performed By: #### C BC, CMP, ADIFF, MDW, LIP, ANEU, GFR #### [address] [address] Hgb 15.4 G/dL Normal 14.0-18.0 [facility] ([place]) Comment on above: Performed By: #### C BC, CMP, ADIFF, MDW, LIP, ANEU, GFR #### [address] [address] MCH (RBC) [Entitic mass] 31.5 pg High 27.0-31.2 [facility] ([place]) Comment on above: Performed By: #### C BC, CMP, ADIFF, MDW, LIP, ANEU, GFR #### [address] [address] MCHC 34.8 G/dL Normal 31.8-35.4 [facility] ([place] Comment on above: Performed By: #### C BC, CMP, ADIFF, MDW, LIP, ANEU, GFR #### [address] [address] MCV (RBC) [Entitic vol] 90.6 fL Normal 80.0-94.0 [facility] ([place]) Comment on above: Performed By: #### C BC, CMP, ADIFF, MDW, LIP, ANEU, GFR #### [address] [address] Platelet 294 10 3/mcL Normal 130-400 [facility] ([place]) Comment on above: Performed By: #### C BC, CMP, ADIFF, MDW, LIP, ANEU, GFR #### [address] [address] Platelet mean volume (Bld) [Entitic vol] 7.2 fL Low 7.4-10.4 [facility] ([place]) Comment on above: Performed By: #### C BC, CMP, ADIFF, MDW, LIP, ANEU, GFR #### [address] [address] RBC 4.89 10 6/mcL Normal 4.04-6.13 [facility] ([place]) Comment on above: Performed By: #### C BC, CMP, ADIFF, MDW, LIP, ANEU, GFR #### [address] [address] WBC 8.8 10 3/mcL Normal 4.6-10.8 [facility] ([place]) Comment on above: Performed By: #### C BC, CMP, ADIFF, MDW, LIP, ANEU, GFR #### [address] [address] CMPon 06-28-2023 Albumin Level 3.3 G/dL Low 3.5-5.0 [facility] ([place]) Comment on above: Performed By: #### C BC, CMP, ADIFF, MDW, LIP, ANEU, GFR #### [address] [address] Albumin/Globulin [Mass ratio] 0.9 {ratio} Low 1.1-2.5 [facility] ([place]) Comment on above: Performed By: #### C BC, CMP, ADIFF, MDW, LIP, ANEU, GFR #### [address] [address] ALP [Catalytic activity/Vol] 46 U/L Normal 40-135 [facility] ([place]) Comment on above: Performed By: #### C BC, CMP, ADIFF, MDW, LIP, ANEU, GFR #### [address] [address] ALT [Catalytic activity/Vol] 31 U/L Normal 16-63 [facility] ([place]) Comment on above: Performed By: #### C BC, CMP, ADIFF, MDW, LIP, ANEU, GFR #### [address] [address] AST [Catalytic activity/Vol] 16 U/L Normal 10-40 [facility] ([place]) Comment on above: Performed By: #### C BC, CMP, ADIFF, MDW, LIP, ANEU, GFR #### [address] [address] Bili Total 0.3 mg/dL Normal 0.2-1.0 [facility] ([place]) Comment on above: Result Comment: Use of this assay is not recommended for patients undergoing treatment with eltrombopag due to the potential for falsely elevated results. Performed By: #### C BC, CMP, ADIFF, MDW, LIP, ANEU, GFR #### [address] [address] BUN/Creatinine Ratio 13 ratio Normal 7-27 [facility] ([place]) Comment on above: Performed By: #### C BC, CMP, KLARISSA, W, LIP, ANEU, GFR #### [address] [address] Calcium [Mass/Vol] 9.1 mg/dL Normal 8.4-10.2 [facility] ([place]) Comment on above: Performed By: #### C BC, CMP, KLARISSA, W, LIP, ANEU, GFR #### [address] [address] Chloride [Moles/Vol] 103 mmol/L Normal 98-107 [facility] ([place]) Comment on above: Performed By: #### C LANI, CORNELIA, ANURAG CYR, LIP, ANEU, GFR #### [address] [address] CO2 [Moles/Vol] 30 mmol/L High 22-29 [facility] ([place]) Comment on above: Performed By: #### C LANI, CORNELIA, ANURAG CYR, LIP, ANEU, GFR #### [address] [address] Creatinine [Mass/Vol] 0.91 mg/dL Normal 0.70-1.30 [facility] ([place]) Comment on above: Performed By: #### C BC, CMP, KLARISSA, ANURAG, LIP, ANEU, GFR #### [address] [address] Electrolyte Balance 6.0 mEq/L Normal 4.0-15.0 [facility] ([place]) Comment on above: Performed By: #### C BC, CORNELIA, KLARISSA, W, LIP, ANEU, GFR #### [address] [address] Globulin 3.5 G/dL Normal [facility] ([place]) Comment on above: Performed By: #### C BC, CMP, ADIFF, MDW, LIP, ANEU, GFR #### [address] [address] Glucose [Mass/Vol] 137 mg/dL High 70-105 [facility] ([place]) Comment on above: Performed By: #### C BC, CMP, ADIFF, MDW, LIP, ANEU, GFR #### [address] [address] Potassium [Moles/Vol] 3.8 mmol/L Normal 3.5-5.1 [facility] ([place]) Comment on above: Performed By: #### C BC, CMP, ADIFF, MDW, LIP, ANEU, GFR #### [address] [address] Sodium [Moles/Vol] 139 mmol/L Normal 136-145 [facility] ([place]) Comment on above: Performed By: #### C BC, CMP, ADIFF, MDW, LIP, ANEU, GFR #### [address] [address] Total Protein 6.8 G/dL Normal 6.4-8.2 [facility] ([place] Comment on above: Performed By: #### C BC, CMP, ADIFF, MDW, LIP, ANEU, GFR #### [address] [address] Urea nitrogen [Mass/Vol] 12 mg/dL Normal 7-18 [facility]) Comment on above: Performed By: #### C BC, CMP, ADIFF, MDW, LIP, ANEU, GFR #### [address] [address] [address] ABD/PELVIS W/ IV CONTRAST ONLYon 06-28-2023 [...] 06/28/2023 4:25:43 PM Ordering Provider: YOUNG Nelson [facility] ([place]) LABORATORYOrdered By: Becka Artis on 06-28-2023 Appearance [...] Lactic Acid Lvl 1.4 mmol/L Normal 0.4-2.0 [facility] ([place] Comment on above: Performed By: #### L AC #### [facility] [address] [place], [place] [address] LIPon 06-28-2023 Lipase Level 28 U/L Normal 16-77 [facility] ([place]) Comment on above: Performed By: #### C LANI, CORNELIA, KLARISSA, ANURAG, LIP, ANEU, GFR #### [place] [address] [place], [place] [address] No Panel Informationon 06-28 Microscopic examination of blood, culture Culture has been received in lab and is no growth to date. Routine cultures are held for 5 days. [facility] UAon 06-28-2023 Color (U) Yellow Normal [facility] ([place] Comment on above: Performed By: #### C BC, CMP, KLARISSA, ANURAG, LIP, ANEU, GFR #### [facility] [address] [place], [place] [address] Glucose (U) [Mass/Vol] Negative Normal Negative [facility] ([place] Comment on above: Performed By: #### C BC, CMP, ADIFF, MDW, LIP, ANEU, GFR #### [address] [address] Ketones Ql (U) Negative Normal Negative [facility] ([place]) Comment on above: Performed By: #### C BC, CMP, ADIFF, MDW, LIP, ANEU, GFR #### [address] [address] UA Appear Slightly Cloudy Abnormal Clear [facility] ([place] Comment on above: Performed By: #### C BC, CMP, ADIFF, MDW, LIP, ANEU, GFR #### [address] [address] UA Blood Negative Normal Negative [facility] ([place]) Comment on above: Performed By: #### C BC, CMP, ADIFF, MDW, LIP, ANEU, GFR #### [place] [id number] UA Leuk Est Negative Normal Negative [facility] ([place]) Comment on above: Performed By: #### C BC, CMP, ADIFF, MDW, LIP, ANEU, GFR #### [address] [address] UA Nitrite Negative Normal Negative [facility] ([place]) Comment on above: Performed By: #### C BC, CMP, ADIFF, MDW, LIP, ANEU, GFR #### [address] [address] UA pH 7.0 Normal 5.0 - 8.0 [facility] ([place]) Comment on above: Performed By: #### C BC, CMP, ADIFF, MDW, LIP, ANEU, GFR #### [address] [address] UA Protein Negative Normal Negative [facility] ([place] Comment on above: Performed By: #### C BC, CMP, ADIFF, MDW, LIP, ANEU, GFR #### [address] [address] UA Spec Grav 1.020 Normal 1.015-1.025 [facility] ([place]) Comment on above: Performed By: #### C LANI, KLARISSA LOCKE MDW, LIP, ANEU, GFR #### [place] [address] [place], [place] [address] UA Specimen Type Clean Catch Normal [facility] ([place]) Comment on above: Performed By: #### C LANI, KLARISSA LOCKE MDW, LIP, ANEU, GFR #### [place] [address] [place], [place] [address] UA Urobilinogen 0.2 E.U./dL Normal 0.2-1.0 [facility] ([place]) Comment on above: Performed By: #### C LANI, KLARISSA LOCKE MDW, LIP, ANEU, GFR #### [place] [address] [place], [place] [address] Urobilinogen (U) [Mass/Vol] Negative Normal Negative [facility] ([place]) Comment on above: Performed By: #### C LANI, KLARISSA LOCKE MDW, LIP, ANEU, GFR #### [place] [address] [place], [place] [address] CNPNon 06-25-2023 CNPN Telephone (iNeoMarketingJOHN) PATRICK KOROMA ([id number]) 1980 M Date Time Provider Department 06/25/23 MOHAN MILLER During your visit today, we recorded the following information about you: Mohan Miller OCCA 06/25/2023 12:52 PM Signed Reviewed chart for clinic prep. Patient has recent CT in Epic. Obtained operative reports from [facility], sent for scanning. Edi Miller EMT-P, OCCA Allergies As of Date: 06/25/2023 Noted Allergy Reaction ADHESIVE TAPE-SILICONES 10/23/2016 4 - Hives KEFLEX (CEPHALEXIN) 11/12/2016 4 - Hives KEPPRA (LEVETIRACETAM) 10/23/2016 4 - Hives MORPHINE 10/23/2016 10 - Anaphylaxis NAPROXEN 07/08/2017 4 - Hives Date Reviewed: 01/03/2022 Reviewed by: Ibrahima Schaefer MD - Fully Assessed Reason for Visit: [...] Status:Closed by MOHAN MILLER on 06/25/23 Normal [facility] .Auto Diffon 06-08-2023 Basophil, Absolute 0.1 10 3/mcL Normal 0.0-0.2 [facility] ([place]) Comment on above: Performed By: #### C CORNELIA GARIBAY ADIFF, MDW, LIP, ANEU, GFR #### [address] [address] Basophils/100 WBC (Bld) 1.2 % Normal 0.0-2.5 [facility] ([place]) Comment on above: Performed By: #### C CORNELIA GARIBAY ADIFF, MDW, LIP, ANEU, GFR #### [address] [address] Eosinophil, Absolute 0.2 10 3/mcL Normal 0.0-0.4 [facility] ([place]) Comment on above: Performed By: #### C LANI, KLARISSA LOCKE MDW, LIP, ANEU, GFR #### [address] [address] Eosinophils/100 WBC (Bld) 2.1 % Normal 0.0-7.0 [facility] ([place]) Comment on above: Performed By: #### C BC, CMP, ADIFF, MDW, LIP, ANEU, GFR #### [address] [address] Lymphocyte, Absolute 2.8 10 3/mcL Normal 0.8-3.9 [facility] ([place]) Comment on above: Performed By: #### C BC, CMP, ADIFF, MDW, LIP, ANEU, GFR #### [address] [address] Lymphocytes/100 WBC (Bld) 26.1 % Normal 10.0-50.0 [facility] ([place]) Comment on above: Performed By: #### C BC, CMP, ADIFF, MDW, LIP, ANEU, GFR #### [address] [address] Monocyte, Absolute 0.6 10 3/mcL Normal 0.2-1.0 [facility] ([place]) Comment on above: Performed By: #### C BC, CMP, ADIFF, MDW, LIP, ANEU, GFR #### [address] [address] Monocytes/100 WBC (Bld) 5.8 % Normal 1.7-13.0 [facility] ([place]) Comment on above: Performed By: #### C BC, CMP, ADIFF, MDW, LIP, ANEU, GFR #### [address] [address] Neutrophils/100 WBC (Bld) 64.8 % Normal 37.0-80.0 [facility] ([place] Comment on above: Performed By: #### C BC, CMP, ADIFF, MDW, LIP, ANEU, GFR #### [address] [address] .GFRon 06-08-2023 GFR 124 ml/min/1.73sqm Normal [facility] ([place]) Comment on above: Result Comment: GFR Population [...] CORNELIA, KLARISSA, ANURAG, LIP, ANEU, GFR #### [address] [address] GFR Non- 102 ml/min/1.73sqm Normal [facility] ([place]) Comment on above: Result Comment: GFR Population [...] CMP, KLARISSA, ANURAG, LIP, ANEU, GFR #### [address] [address] .MDWon 06-08-2023 Monocyte Distribution Width 18.49 Normal 0.00-20.00 [facility] ([place]) Comment on above: Result Comment: For ED adult patients suspected of sepsis, MDW<=20.0 does not rule out sepsis or risk of sepsis Performed By: #### C BC, CMP, KLARISSA, W, LIP, ANEU, GFR #### [address] [address] .NEUABSon 06-08-2023 Neutrophil, Absolute 6.9 10 3/mcL High 2.9-6.2 [facility] ([place]) Comment on above: Performed By: #### C BC, CMP, ADIFF, MDW, LIP, ANEU, GFR #### [address] [address] BMPon 06-08-2023 BUN/Creatinine Ratio 15 ratio Normal 7-27 [facility] ([place]) Comment on above: Performed By: #### C BC, CMP, ADIFF, MDW, LIP, ANEU, GFR #### [address] [address] Calcium [Mass/Vol] 8.9 mg/dL Normal 8.4-10.2 [facility] ([place]) Comment on above: Performed By: #### C BC, CMP, ADIFF, MDW, LIP, ANEU, GFR #### [address] [address] Chloride [Moles/Vol] 104 mmol/L Normal 98-107 [facility] ([place]) Comment on above: Performed By: #### C BC, CMP, ADIFF, MDW, LIP, ANEU, GFR #### [address] [address] CO2 [Moles/Vol] 26 mmol/L Normal 22-29 [facility] ([place]) Comment on above: Performed By: #### C BC, CMP, ADIFF, MDW, LIP, ANEU, GFR #### [address] [address] Creatinine [Mass/Vol] 0.82 mg/dL Normal 0.70-1.30 [facility] ([place]) Comment on above: Performed By: #### C BC, CMP, ADIFF, MDW, LIP, ANEU, GFR #### [address] [address] Electrolyte Balance 10.0 mEq/L Normal 4.0-15.0 [facility] ([place]) Comment on above: Performed By: #### C BC, CMP, ADIFF, MDW, LIP, ANEU, GFR #### [address] [address] Glucose [Mass/Vol] 110 mg/dL High 70-105 [facility] ([place]) Comment on above: Performed By: #### C BC, CMP, ADIFF, MDW, LIP, ANEU, GFR #### [address] [address] Potassium [Moles/Vol] 4.2 mmol/L Normal 3.5-5.1 [facility] ([place] Comment on above: Performed By: #### C BC, CMP, ADIFF, MDW, LIP, ANEU, GFR #### [place] [address] Sodium [Moles/Vol] 140 mmol/L Normal 136-145 [facility] ([place] Comment on above: Performed By: #### C BC, CMP, ADIFF, MDW, LIP, ANEU, GFR #### [address] [address] Urea nitrogen [Mass/Vol] 12 mg/dL Normal 7-18 [facility] ([place] Comment on above: Performed By: #### C BC, CMP, ADIFF, MDW, LIP, ANEU, GFR #### [address] [address] CBCon 06-08-2023 Erythrocyte distribution width (RBC) [Ratio] 13.6 % Normal 11.5-14.5 [facility]) Comment on above: Performed By: #### C BC, CMP, ADIFF, MDW, LIP, ANEU, GFR #### [address] [address] Hematocrit (Bld) [Volume fraction] 43.4 % Normal 42.0-52.0 [facility] ([place] Comment on above: Performed By: #### C BC, CMP, ADIFF, MDW, LIP, ANEU, GFR #### [address] [address] Hgb 14.9 G/dL Normal 14.0-18.0 [facility] ([place] Comment on above: Performed By: #### C BC, CMP, ADIFF, MDW, LIP, ANEU, GFR #### [place] [id number] MCH (RBC) [Entitic mass] 31.1 pg Normal 27.0-31.2 [facility] ([place] Comment on above: Performed By: #### C BC, CMP, ADIFF, MDW, LIP, ANEU, GFR #### [place] [address] MCHC 34.4 G/dL Normal 31.8-35.4 [facility] ([place] Comment on above: Performed By: #### C BC, CMP, ADIFF, MDW, LIP, ANEU, GFR #### [place] [address] MCV (RBC) [Entitic vol] 90.5 fL Normal 80.0-94.0 [facility] ([place] Comment on above: Performed By: #### C BC, CMP, ADIFF, MDW, LIP, ANEU, GFR #### [place] [address] Platelet 283 10 3/mcL Normal 130-400 [facility] ([place]) Comment on above: Performed By: #### C BC, CMP, ADIFF, MDW, LIP, ANEU, GFR #### [place] [address] Platelet mean volume (Bld) [Entitic vol] 8.0 fL Normal 7.4-10.4 [facility] ([place]) Comment on above: Performed By: #### C BC, CMP, ADIFF, MDW, LIP, ANEU, GFR #### [place] [address] RBC 4.80 10 6/mcL Normal 4.04-6.13 [facility] ([place]) Comment on above: Performed By: #### C BC, CMP, ADIFF, MDW, LIP, ANEU, GFR #### [address] [place], [place] [address] WBC 10.6 10 3/mcL Normal 4.6-10.8 [facility] ([place]) Comment on above: Performed By: #### C BC, CMP, ANURAG CYR, LIP, ANEU, GFR #### [address] [place], [place] [address] LABORATORYOrdered By: SYSTEM SYSTEM on 06-08-2023 Basophil, [...] SS .GFRon 05-17-2023 GFR 111 ml/min/1.73sqm Normal [facility] ([place]) Comment on above: Result Comment: GFR Population [...] meters Performed By: #### C BC, CMP, ANURAG CYR, LIP, ANEU, GFR #### [address] [address] GFR Non- 92 ml/min/1.73sqm Normal [facility] ([place]) Comment on above: Result Comment: GFR Population [...] mL/min/1.73 square meters Performed By: #### C LANI, CORNELIA, ANURAG CYR, LIP, ANEU, GFR #### [address] [address] BMPon 05-17-2023 BUN/Creatinine Ratio 14 ratio Normal 7-27 [facility] ([place]) Comment on above: Performed By: #### C LANI, CORNELIA, ANURAG CYR, LIP, ANEU, GFR #### [address] [address] Calcium [Mass/Vol] 9.5 mg/dL Normal 8.4-10.2 [facility] ([place]) Comment on above: Performed By: #### C LANI, CORNELIA, ANURAG CYR, LIP, ANEU, GFR #### [address] [address] Chloride [Moles/Vol] 103 mmol/L Normal 98-107 [facility] ([place]) Comment on above: Performed By: #### C LANI, CORNELIA, ANURAG CYR, LIP, ANEU, GFR #### [address] [address] CO2 [Moles/Vol] 24 mmol/L Normal 22-29 [facility] ([place]) Comment on above: Performed By: #### C BC, CMP, ADIFF, MDW, LIP, ANEU, GFR #### [address] [address] Creatinine [Mass/Vol] 0.90 mg/dL Normal 0.70-1.30 [facility] ([place]) Comment on above: Performed By: #### C BC, CMP, ADIFF, MDW, LIP, ANEU, GFR #### [address] [address] Electrolyte Balance 15.0 mEq/L Normal 4.0-15.0 [facility] ([place]) Comment on above: Performed By: #### C BC, CMP, ADIFF, MDW, LIP, ANEU, GFR #### [address] [address] Glucose [Mass/Vol] 98 mg/dL Normal 70-105 [facility] ([place]) Comment on above: Performed By: #### C BC, CMP, ADIFF, MDW, LIP, ANEU, GFR #### [address] [address] Potassium [Moles/Vol] 4.6 mmol/L Normal 3.5-5.1 [facility]) Comment on above: Performed By: #### C BC, CMP, ADIFF, MDW, LIP, ANEU, GFR #### [address] [address] Sodium [Moles/Vol] 142 mmol/L Normal 136-145 [facility] ([place]) Comment on above: Performed By: #### C BC, CMP, ADIFF, MDW, LIP, ANEU, GFR #### [address] [address] Urea nitrogen [Mass/Vol] 13 mg/dL Normal 7-18 [facility] ([place]) Comment on above: Performed By: #### C BC, CMP, ADIFF, MDW, LIP, ANEU, GFR #### [address] [address] [address] ABD/PELVIS W/ IV CONTRAST ONLYon 12-02-2023 CT ABD/PELVIS W/ IV CONTRAST ONLY ORIGINAL [...] 05/16/2023 10:45:51 PM Ordering Provider: TOI Nelson [facility] ([place]) .Auto Diffon 05-16-2023 Basophil, Absolute 0.1 10 3/mcL Normal 0.0-0.2 [facility] ([place]) Comment on above: Performed By: #### C BC, CMP, ADIFF, MDW, LIP, ANEU, GFR #### [address] [address] Basophils/100 WBC (Bld) 1.1 % Normal 0.0-2.5 [facility] ([place]) Comment on above: Performed By: #### C BC, CMP, ADIFF, MDW, LIP, ANEU, GFR #### [address] [address] Eosinophil, Absolute 0.3 10 3/mcL Normal 0.0-0.4 [facility] ([place]) Comment on above: Performed By: #### C BC, CMP, ADIFF, MDW, LIP, ANEU, GFR #### [address] [address] Eosinophils/100 WBC (Bld) 1.9 % Normal 0.0-7.0 [facility] ([place]) Comment on above: Performed By: #### C BC, CMP, ADIFF, MDW, LIP, ANEU, GFR #### [address] [address] Lymphocyte, Absolute 3.4 10 3/mcL Normal 0.8-3.9 [facility] ([place]) Comment on above: Performed By: #### C BC, CMP, ADIFF, MDW, LIP, ANEU, GFR #### [address] [address] Lymphocytes/100 WBC (Bld) 25.6 % Normal 10.0-50.0 [facility] ([place]) Comment on above: Performed By: #### C BC, CMP, ADIFF, MDW, LIP, ANEU, GFR #### [address] [address] Monocyte, Absolute 0.8 10 3/mcL Normal 0.2-1.0 [facility] ([place]) Comment on above: Performed By: #### C BC, CMP, ADIFF, MDW, LIP, ANEU, GFR #### [address] [address] Monocytes/100 WBC (Bld) 6.0 % Normal 1.7-13.0 [facility] ([place]) Comment on above: Performed By: #### C CORNELIA GARIBAY ADIFF, MDW, LIP, ANEU, GFR #### [address] [address] Neutrophils/100 WBC (Bld) 65.4 % Normal 37.0-80.0 [facility] ([place]) Comment on above: Performed By: #### C LANI, KALRISSA LOCKE MDW, LIP, ANEU, GFR #### [address] [address] .GFRon 05-16-2023 GFR 98 ml/min/1.73sqm Normal [facility] ([place]) Comment on above: Result Comment: GFR Population [...] mL/min/1.73 square meters Performed By: #### C LANI, KLARISSA LOCKE MDW, LIP, ANEU, GFR #### [place] [address] [place], [place] [address] GFR Non- 81 ml/min/1.73sqm Normal [facility] ([place]) Comment on above: Result Comment: GFR Population [...] CMP, ADIFF, MDW, LIP, ANEU, GFR #### [address] [address] .MDWon 05-16-2023 Monocyte Distribution Width 17.52 Normal 0.00-20.00 [facility] ([place]) Comment on above: Result Comment: For ED adult patients suspected of sepsis, MDW<=20.0 does not rule out sepsis or risk of sepsis Performed By: #### C BC, CMP, ADIFF, MDW, LIP, ANEU, GFR #### [address] [address] .NEUABSon 05-16-2023 Neutrophil, Absolute 8.7 10 3/mcL High 2.9-6.2 [facility] ([place]) Comment on above: Performed By: #### C BC, CMP, ADIFF, MDW, LIP, ANEU, GFR #### [address] [address] CBCon 05-16-2023 Erythrocyte distribution width (RBC) [Ratio] 13.4 % Normal 11.5-14.5 [facility] ([place]) Comment on above: Performed By: #### C BC, CMP, ADIFF, MDW, LIP, ANEU, GFR #### [place] [id number] Hematocrit (Bld) [Volume fraction] 45.6 % Normal 42.0-52.0 [facility] ([place]) Comment on above: Performed By: #### C BC, CMP, ADIFF, MDW, LIP, ANEU, GFR #### [address] [address] Hgb 15.6 G/dL Normal 14.0-18.0 [facility] ([place]) Comment on above: Performed By: #### C BC, CMP, ADIFF, MDW, LIP, ANEU, GFR #### [address] [address] MCH (RBC) [Entitic mass] 30.9 pg Normal 27.0-31.2 [facility] ([place]) Comment on above: Performed By: #### C BC, CMP, ADIFF, MDW, LIP, ANEU, GFR #### [address] [address] MCHC 34.1 G/dL Normal 31.8-35.4 [facility] ([place]) Comment on above: Performed By: #### C BC, CMP, ADIFF, MDW, LIP, ANEU, GFR #### [address] [address] MCV (RBC) [Entitic vol] 90.6 fL Normal 80.0-94.0 [facility] ([place]) Comment on above: Performed By: #### C BC, CMP, KLARISSA, MDW, LIP, ANEU, GFR #### [address] [address] Platelet 303 10 3/mcL Normal 130-400 [facility] ([place]) Comment on above: Performed By: #### C BC, CMP, KLARISSA, MDW, LIP, ANEU, GFR #### [address] [address] Platelet mean volume (Bld) [Entitic vol] 7.3 fL Low 7.4-10.4 [facility] ([place]) Comment on above: Performed By: #### C BC, CMP, ADIFF, MDW, LIP, ANEU, GFR #### [address] [address] RBC 5.04 10 6/mcL Normal 4.04-6.13 [facility] ([place]) Comment on above: Performed By: #### C BC, CMP, ADIFF, MDW, LIP, ANEU, GFR #### [address] [address] WBC 13.3 10 3/mcL High 4.6-10.8 [facility] ([place]) Comment on above: Performed By: #### C BC, CMP, ADIFF, MDW, LIP, ANEU, GFR #### [address] [address] CMPon 05-16-2023 Albumin Level 3.4 G/dL Low 3.5-5.0 [facility] ([place]) Comment on above: Performed By: #### C BC, CMP, ADIFF, MDW, LIP, ANEU, GFR #### [address] [address] Albumin/Globulin [Mass ratio] 0.9 {ratio} Low 1.1-2.5 [facility] ([place]) Comment on above: Performed By: #### C BC, CMP, ADIFF, MDW, LIP, ANEU, GFR #### [address] [address] ALP [Catalytic activity/Vol] 47 U/L Normal 40-135 [facility] ([place]) Comment on above: Performed By: #### C BC, CMP, ADIFF, MDW, LIP, ANEU, GFR #### [address] [address] ALT [Catalytic activity/Vol] 23 U/L Normal 16-63 [facility] ([place]) Comment on above: Performed By: #### C BC, CMP, ADIFF, MDW, LIP, ANEU, GFR #### [address] [address] AST [Catalytic activity/Vol] 21 U/L Normal 10-40 [facility] ([place]) Comment on above: Performed By: #### C BC, CMP, ADIFF, MDW, LIP, ANEU, GFR #### [address] [address] Bili Total 0.2 mg/dL Normal 0.2-1.0 [facility] ([place]) Comment on above: Result Comment: Use of this assay is not recommended for patients undergoing treatment with eltrombopag due to the potential for falsely elevated results. Performed By: #### C BC, CMP, ADIFF, MDW, LIP, ANEU, GFR #### [address] [address] BUN/Creatinine Ratio 14 ratio Normal 7-27 [facility] ([place]) Comment on above: Performed By: #### C BC, CMP, ADIFF, MDW, LIP, ANEU, GFR #### [address] [address] Calcium [Mass/Vol] 9.3 mg/dL Normal 8.4-10.2 [facility] ([place]) Comment on above: Performed By: #### C BC, CMP, ADJAN, MDW, LIP, ANEU, GFR #### [address] [address] Chloride [Moles/Vol] 96 mmol/L Low 98-107 [facility] ([place]) Comment on above: Performed By: #### C BC, CMP, ADJAN, MDW, LIP, ANEU, GFR #### [address] [address] CO2 [Moles/Vol] 24 mmol/L Normal 22-29 [facility] ([place]) Comment on above: Performed By: #### C BC, CMP, KLARISSA, MDW, LIP, ANEU, GFR #### [address] [address] Creatinine [Mass/Vol] 1.00 mg/dL Normal 0.70-1.30 [facility] ([place]) Comment on above: Performed By: #### C BC, CMP, KLARISSA, MDW, LIP, ANEU, GFR #### [address] [address] Electrolyte Balance 6.0 mEq/L Normal 4.0-15.0 [facility] ([place]) Comment on above: Performed By: #### C BC, CMP, ADJAN, MDW, LIP, ANEU, GFR #### [address] [address] Globulin 3.8 G/dL Normal [facility] ([place]) Comment on above: Performed By: #### C BC, CMP, KLARISSA, MDW, LIP, ANEU, GFR #### [address] [address] Glucose [Mass/Vol] 121 mg/dL High 70-105 [facility] ([place]) Comment on above: Performed By: #### C BC, CORNELIA, KLARISSA, ANURAG, LIP, ANEU, GFR #### [address] [address] Potassium [Moles/Vol] 3.8 mmol/L Normal 3.5-5.1 [facility] ([place] Comment on above: Performed By: #### C LANI, CORNELIA, KLARISSA, ANURAG, LIP, ANEU, GFR #### [address] [address] Sodium [Moles/Vol] 126 mmol/L Low 136-145 [facility] ([place] Comment on above: Performed By: #### C LANI, CORNELIA, ANURAG CYR, LIP, ANEU, GFR #### [address] [address] Total Protein 7.2 G/dL Normal 6.4-8.2 [facility] ([place]) Comment on above: Performed By: #### C LANI, KLARISSA LOCKE MDW, LIP, ANEU, GFR #### [address] [address] Urea nitrogen [Mass/Vol] 14 mg/dL Normal 7-18 [facility] ([place]) Comment on above: Performed By: #### C LANI, KLARISSA LOCKE MDW, LIP, ANEU, GFR #### [address] [address] LABORATORYOrdered By: SYSTEM SYSTEM on 05-16-2023 Albumin [...] 05-16-2023 Lipase Level 20 U/L Normal 16-77 [facility] ([place] Comment on above: Performed By: #### C BC, CMP, ADIFF, MDW, LIP, ANEU, GFR #### [address] [address] UAon 05-16-2023 Color (U) Yellow Normal [facility] ([place] Comment on above: Performed By: #### U A #### [address] [address] Glucose (U) [Mass/Vol] Negative Normal Negative [facility] ([place] Comment on above: Performed By: #### U A #### [address] [address] Ketones Ql (U) Negative Normal Negative [facility] ([place] Comment on above: Performed By: #### U A #### [address] [address] UA Appear Clear Normal Clear [facility] ([place] Comment on above: Performed By: #### U A #### [address] [address] UA Blood Negative Normal Negative [facility] ([place] Comment on above: Performed By: #### U A #### [address] [address] UA Leuk Est Negative Normal Negative [facility] ([place]) Comment on above: Performed By: #### U A #### [place] [id number] UA Nitrite Negative Normal Negative [facility] ([place] Comment on above: Performed By: #### U A #### [place] [id number] UA pH 6.0 Normal 5.0 - 8.0 [facility] ([place] Comment on above: Performed By: #### U A #### [place] [address] UA Protein Negative Normal Negative [facility] ([place] Comment on above: Performed By: #### U A #### [place] [address] UA Spec Grav >=1.030 Abnormal 1.015-1.025 [facility] ([place] Comment on above: Performed By: #### U A #### [place] [address] UA Specimen Type Clean Catch Normal [facility] ([place] Comment on above: Performed By: #### U A #### [place] [address] UA Urobilinogen 0.2 E.U./dL Normal 0.2-1.0 [facility] ([place]) Comment on above: Performed By: #### U A #### [place] [address] Urobilinogen (U) [Mass/Vol] Negative Normal Negative [facility] ([place] Comment on above: Performed By: #### U A #### [place] [address] .Auto Diffon 02-12-2023 Basophil, Absolute 0.1 10 3/mcL Normal 0.0-0.2 [facility]) Comment on above: Performed By: #### C BC, CMP, ADIFF, MDW, LIP, ANEU, GFR #### [place] [address] Basophils/100 WBC (Bld) 1.2 % Normal 0.0-2.5 [facility] ([place] Comment on above: Performed By: #### C BC, CMP, ADIFF, MDW, LIP, ANEU, GFR #### [address] [address] Eosinophil, Absolute 0.1 10 3/mcL Normal 0.0-0.4 [facility] ([place]) Comment on above: Performed By: #### C BC, CMP, ADIFF, MDW, LIP, ANEU, GFR #### [address] [address] Eosinophils/100 WBC (Bld) 1.4 % Normal 0.0-7.0 [facility] ([place] Comment on above: Performed By: #### C BC, CMP, ADIFF, MDW, LIP, ANEU, GFR #### [address] [address] Lymphocyte, Absolute 3.3 10 3/mcL Normal 0.8-3.9 [facility] ([place]) Comment on above: Performed By: #### C BC, CMP, ADIFF, MDW, LIP, ANEU, GFR #### [address] [address] Lymphocytes/100 WBC (Bld) 35.7 % Normal 10.0-50.0 [facility] ([place] Comment on above: Performed By: #### C BC, CMP, ADIFF, MDW, LIP, ANEU, GFR #### [address] [address] Monocyte, Absolute 0.5 10 3/mcL Normal 0.2-1.0 [facility] ([place]) Comment on above: Performed By: #### C BC, CMP, ADIFF, MDW, LIP, ANEU, GFR #### [address] [address] Monocytes/100 WBC (Bld) 5.1 % Normal 1.7-13.0 [facility] ([place]) Comment on above: Performed By: #### C BC, CMP, ADIFF, MDW, LIP, ANEU, GFR #### [place] [address] [place], [place] [address] Neutrophils/100 WBC (Bld) 56.6 % Normal 37.0-80.0 [facility] ([place] Comment on above: Performed By: #### C LANI, CORNELIA, KLARISSA, ANURAG, LIP, ANEU, GFR #### [place] [address] [place], [place] [address] .GFRon 02-12-2023 GFR Non- 121 ml/min/1.73sqm Normal [facility] ([place]) Comment on above: Result Comment: GFR Population [...] CORNELIA, KLARISSA, ANURAG, LIP, ANEU, GFR #### [place] [address] [place], [place] [address] GFR 146 ml/min/1.73sqm Normal [facility] ([place] Comment on above: Result Comment: GFR Population [...] CMP, ADIFF, MDW, LIP, ANEU, GFR #### [place] [address] .MDWon 02-12-2023 Monocyte Distribution Width 19.74 Normal 0.00-20.00 [facility] ([place]) Comment on above: Result Comment: For ED adult patients suspected of sepsis, MDW<=20.0 does not rule out sepsis or risk of sepsis Performed By: #### C BC, CMP, ADIFF, MDW, LIP, ANEU, GFR #### [place] [address] .NEUABSon 02-12-2023 Neutrophil, Absolute 5.2 10 3/mcL Normal 2.9-6.2 [facility] ([place]) Comment on above: Performed By: #### C BC, CMP, ADIFF, MDW, LIP, ANEU, GFR #### [place] [address] CBCon 02-12-2023 Erythrocyte distribution width (RBC) [Ratio] 14.0 % Normal 11.5-14.5 [facility] ([place]) Comment on above: Order Comment: clott ed Performed By: #### C BC, CMP, ADIFF, MDW, LIP, ANEU, GFR #### [place] [address] Hematocrit (Bld) [Volume fraction] 44.7 % Normal 42.0-52.0 [facility] ([place]) Comment on above: Order Comment: clott ed Performed By: #### C BC, CMP, ADIFF, MDW, LIP, ANEU, GFR #### [place] [address] Hgb 15.5 G/dL Normal 14.0-18.0 [facility] ([place]) Comment on above: Order Comment: clott ed Performed By: #### C BC, CMP, ADIFF, MDW, LIP, ANEU, GFR #### [place] [address] MCH (RBC) [Entitic mass] 30.6 pg Normal 27.0-31.2 [facility] ([place] Comment on above: Order Comment: clott ed Performed By: #### C BC, CMP, ADIFF, MDW, LIP, ANEU, GFR #### [address] [address] MCHC 34.6 G/dL Normal 31.8-35.4 [facility] ([place]) Comment on above: Order Comment: clott ed Performed By: #### C BC, CMP, ADIFF, MDW, LIP, ANEU, GFR #### [address] [address] MCV (RBC) [Entitic vol] 88.4 fL Normal 80.0-94.0 [facility] ([place] Comment on above: Order Comment: clott ed Performed By: #### C BC, CMP, ADIFF, MDW, LIP, ANEU, GFR #### [address] [address] Platelet 271 10 3/mcL Normal 130-400 [facility] ([place]) Comment on above: Order Comment: clott ed Performed By: #### C BC, CMP, ADIFF, MDW, LIP, ANEU, GFR #### [address] [address] Platelet mean volume (Bld) [Entitic vol] 7.2 fL Low 7.4-10.4 [facility] ([place]) Comment on above: Order Comment: clott ed Performed By: #### C BC, CMP, ADIFF, MDW, LIP, ANEU, GFR #### [address] [address] RBC 5.06 10 6/mcL Normal 4.04-6.13 [facility] ([place] Comment on above: Order Comment: clott ed Performed By: #### C BC, CMP, ADIFF, MDW, LIP, ANEU, GFR #### [address] [address] WBC 9.3 10 3/mcL Normal 4.6-10.8 [facility] ([place]) Comment on above: Order Comment: clott ed Performed By: #### C BC, CMP, ADIFF, MDW, LIP, ANEU, GFR #### [address] [address] CMPon 02-12-2023 Albumin Level 3.2 G/dL Low 3.5-5.0 [facility] ([place] Comment on above: Performed By: #### C BC, CMP, ADIFF, MDW, LIP, ANEU, GFR #### [address] [address] Albumin/Globulin [Mass ratio] 0.8 {ratio} Low 1.1-2.5 [facility] ([place] Comment on above: Performed By: #### C BC, CMP, ADIFF, MDW, LIP, ANEU, GFR #### [address] [address] ALP [Catalytic activity/Vol] 40 U/L Normal 40-135 [facility] ([place] Comment on above: Performed By: #### C BC, CMP, ADIFF, MDW, LIP, ANEU, GFR #### [address] [address] ALT [Catalytic activity/Vol] 25 U/L Normal 16-63 [facility] ([place] Comment on above: Performed By: #### C BC, CMP, ADIFF, MDW, LIP, ANEU, GFR #### [address] [address] AST [Catalytic activity/Vol] 32 U/L Normal 10-40 [facility] ([place] Comment on above: Performed By: #### C BC, CMP, ADIFF, MDW, LIP, ANEU, GFR #### [address] [address] Bili Total 0.3 mg/dL Normal 0.2-1.0 [facility] ([place]) Comment on above: Result Comment: Use of this assay is not recommended for patients undergoing treatment with eltrombopag due to the potential for falsely elevated results. Performed By: #### C BC, CMP, ADIFF, MDW, LIP, ANEU, GFR #### [address] [address] BUN/Creatinine Ratio 13 ratio Normal 7-27 [facility] ([place]) Comment on above: Performed By: #### C BC, CMP, ADIFF, MDW, LIP, ANEU, GFR #### [address] [address] Calcium [Mass/Vol] 8.2 mg/dL Low 8.4-10.2 [facility] ([place]) Comment on above: Performed By: #### C BC, CMP, ADIFF, MDW, LIP, ANEU, GFR #### [place] [phone] Chloride [Moles/Vol] 102 mmol/L Normal 98-107 [facility] ([place]) Comment on above: Performed By: #### C BC, CMP, ADIFF, MDW, LIP, ANEU, GFR #### [place] [phone] CO2 [Moles/Vol] 26 mmol/L Normal 22-29 [facility] ([place] Comment on above: Performed By: #### C BC, CMP, ADIFF, MDW, LIP, ANEU, GFR #### [address] [address] Creatinine [Mass/Vol] 0.71 mg/dL Normal 0.70-1.30 [facility] ([place]) Comment on above: Performed By: #### C BC, CMP, ADIFF, MDW, LIP, ANEU, GFR #### [address] [address] Electrolyte Balance 9.0 mEq/L Normal 4.0-15.0 [facility] ([place]) Comment on above: Performed By: #### C BC, CMP, ADIFF, MDW, LIP, ANEU, GFR #### [address] [address] Globulin 3.9 G/dL Normal [facility] ([place]) Comment on above: Performed By: #### C BC, CMP, ADIFF, MDW, LIP, ANEU, GFR #### [address] [address] Glucose [Mass/Vol] 118 mg/dL High 70-105 [facility] ([place] Comment on above: Performed By: #### C BC, CMP, ADIFF, MDW, LIP, ANEU, GFR #### [address] [address] Potassium [Moles/Vol] 4.9 mmol/L Normal 3.5-5.1 [facility] ([place]) Comment on above: Performed By: #### C BC, CMP, ADIFF, MDW, LIP, ANEU, GFR #### [address] [address] Sodium [Moles/Vol] 137 mmol/L Normal 136-145 [facility] ([place] Comment on above: Performed By: #### C BC, CMP, ADIFF, MDW, LIP, ANEU, GFR #### [address] [address] Total Protein 7.1 G/dL Normal 6.4-8.2 [facility] ([place] Comment on above: Performed By: #### C BC, CMP, ADIFF, MDW, LIP, ANEU, GFR #### [address] [address] Urea nitrogen [Mass/Vol] 9 mg/dL Normal 7-18 [facility] ([place] Comment on above: Performed By: #### C BC, CMP, ADIFF, MDW, LIP, ANEU, GFR #### [address] [address] [address] ABD/PELVIS W/ IV CONTRAST ONLYon 02-12-2023 [...] 02/12/2023 8:10:54 PM Ordering Provider: WOODROW MCALLISTER [facility] ([place]) LABORATORYOrdered By: SYSTEM SYSTEM on 02-12-2023 Albumin [...] 02-12-2023 Lipase Level 39 U/L Normal 16-77 [facility] ([place]) Comment on above: Performed By: #### C CORNELIA GARIBAY ADIFF, MDW, SHAHLA, ANEU, GFR #### [place] [address] [place], [place] [address] [facility] 02-12-2023 Troponin I High Sensitivity 4.0 ng/L Normal 0.0-76.2 [facility] ([place] Comment on above: Performed By: #### C CORNELIA GARIBAY ADIFF, MDW, LIP, ANEU, GFR #### [place] [place] [address] [place], [place] [address] UAon 02-12-2023 Color (U) Yellow Normal [facility] ([place] Comment on above: Performed By: #### U A #### [address] [place], [place] [address] Glucose (U) [Mass/Vol] Negative Normal Negative [facility] ([place] Comment on above: Performed By: #### U A #### [address] [place], [place] [address] Ketones Ql (U) Negative Normal Negative [facility] ([place] Comment on above: Performed By: #### U A #### [address] [place], [place] [address] UA Appear Clear Normal Clear [facility] ([place] Comment on above: Performed By: #### U A #### [address] [place], [place] [address] UA Blood Negative Normal Negative [facility] ([place] Comment on above: Performed By: #### U A #### [address] [place], [place] [address] UA Leuk Est Negative Normal Negative [facility] ([place]) Comment on above: Performed By: #### U A #### [address] [place], [place] [address] UA Nitrite Negative Normal Negative [facility] ([place] Comment on above: Performed By: #### U A #### [address] [place], [place] [address] UA pH 7.0 Normal 5.0 - 8.0 [facility] ([place]) Comment on above: Performed By: #### U A #### W[address] Sonn [address] [place], [place] [address] UA Protein Negative Normal Negative [facility] ([place]) Comment on above: Performed By: #### U A #### [address] Son[address] [place], [place] [address] UA Spec Grav 1.015 Normal 1.015-1.025 [facility] ([place]) Comment on above: Performed By: #### U A #### Wandy Hart [address] [place], [place] [address] UA Specimen Type Clean Catch Normal [facility] ([place] Comment on above: Performed By: #### U A #### Wandyjessica Sonn [address] [place], [place] [address] UA Urobilinogen 0.2 E.U./dL Normal 0.2-1.0 [facility] ([place] Comment on above: Performed By: #### U A #### Wandyjessica Hart [address] [place], [place] [address] Urobilinogen (U) [Mass/Vol] Negative Normal Negative [facility] ([place] Comment on above: Performed By: #### U A #### [facility] [address] [place], [place] [address] .Auto Diffon 10-20-2022 Basophil, Absolute 0.1 10 3/mcL Normal 0.0-0.2 [facility] ([place]) Comment on above: Performed By: #### C CORNELIA GARIBAY ADIFF, MDW, LIP, ANEU, GFR #### [address] [address] Basophils/100 WBC (Bld) 1.1 % Normal 0.0-2.5 [facility] ([place] Comment on above: Performed By: #### C CORNELIA GARIBAY ADIFF, MDW, LIP, ANEU, GFR #### [address] [address] Eosinophil, Absolute 0.1 10 3/mcL Normal 0.0-0.4 [facility] ([place]) Comment on above: Performed By: #### C CORNELIA GARIBAY ADIFF, MDW, LIP, ANEU, GFR #### [address] [address] Eosinophils/100 WBC (Bld) 1.7 % Normal 0.0-7.0 [facility] ([place] Comment on above: Performed By: #### C BC, CMP, ADIFF, MDW, LIP, ANEU, GFR #### [address] [address] Lymphocyte, Absolute 2.3 10 3/mcL Normal 0.8-3.9 [facility] ([place]) Comment on above: Performed By: #### C BC, CMP, ADIFF, MDW, LIP, ANEU, GFR #### [address] [address] Lymphocytes/100 WBC (Bld) 26.4 % Normal 10.0-50.0 [facility] ([place] Comment on above: Performed By: #### C BC, CMP, ADIFF, MDW, LIP, ANEU, GFR #### [address] [address] Monocyte, Absolute 0.6 10 3/mcL Normal 0.2-1.0 [facility] ([place]) Comment on above: Performed By: #### C BC, CMP, ADIFF, MDW, LIP, ANEU, GFR #### [address] [address] Monocytes/100 WBC (Bld) 6.9 % Normal 1.7-13.0 [facility] ([place]) Comment on above: Performed By: #### C BC, CMP, ADIFF, MDW, LIP, ANEU, GFR #### [address] [address] Neutrophils/100 WBC (Bld) 63.9 % Normal 37.0-80.0 [facility] ([place] Comment on above: Performed By: #### C BC, CMP, ADIFF, MDW, LIP, ANEU, GFR #### [address] [address] .GFRon 10-20-2022 GFR 100 ml/min/1.73sqm Normal [facility] ([place]) Comment on above: Result Comment: GFR Population [...] CMP, ADJAN, MDW, LIP, ANEU, GFR #### [address] [address] GFR Non- 83 ml/min/1.73sqm Normal [facility] ([place]) Comment on above: Result Comment: GFR Population [...] CMP, ADIFF, MDW, LIP, ANEU, GFR #### [address] [address] .MDWon 10-20-2022 Monocyte Distribution Width 16.96 Normal 0.00-20.00 [facility] ([place]) Comment on above: Result Comment: For ED adult patients suspected of sepsis, MDW<=20.0 does not rule out sepsis or risk of sepsis Performed By: #### C BC, CMP, ADIFF, MDW, LIP, ANEU, GFR #### [address] [address] .NEUABSon 10-20-2022 Neutrophil, Absolute 5.5 10 3/mcL Normal 2.9-6.2 [facility] ([place]) Comment on above: Performed By: #### C BC, CMP, ADIFF, MDW, LIP, ANEU, GFR #### [address] [address] CBCon 10-20-2022 Erythrocyte distribution width (RBC) [Ratio] 12.9 % Normal 11.5-14.5 [facility] ([place]) Comment on above: Performed By: #### C BC, CMP, ADIFF, MDW, LIP, ANEU, GFR #### [place] [address] Hematocrit (Bld) [Volume fraction] 41.4 % Low 42.0-52.0 [facility] ([place] Comment on above: Performed By: #### C BC, CMP, ADIFF, MDW, LIP, ANEU, GFR #### [place] [address] Hgb 14.1 G/dL Normal 14.0-18.0 [facility] ([place]) Comment on above: Performed By: #### C BC, CMP, ADIFF, MDW, LIP, ANEU, GFR #### [address] [address] MCH (RBC) [Entitic mass] 30.4 pg Normal 27.0-31.2 [facility] ([place]) Comment on above: Performed By: #### C BC, CMP, ADIFF, MDW, LIP, ANEU, GFR #### [place] [address] MCHC 34.0 G/dL Normal 31.8-35.4 [facility] ([place]) Comment on above: Performed By: #### C BC, CMP, ADIFF, MDW, LIP, ANEU, GFR #### [place] [address] MCV (RBC) [Entitic vol] 89.5 fL Normal 80.0-94.0 [facility] ([place] Comment on above: Performed By: #### C BC, CMP, ADIFF, MDW, LIP, ANEU, GFR #### [address] [address] Platelet 288 10 3/mcL Normal 130-400 [facility] ([place]) Comment on above: Performed By: #### C BC, CMP, KLARISSA, MDW, LIP, ANEU, GFR #### [address] [address] Platelet mean volume (Bld) [Entitic vol] 7.3 fL Low 7.4-10.4 [facility] ([place] Comment on above: Performed By: #### C BC, CMP, ADIFF, MDW, LIP, ANEU, GFR #### [address] [address] RBC 4.62 10 6/mcL Normal 4.04-6.13 [facility] ([place] Comment on above: Performed By: #### C BC, CMP, ADIFF, MDW, LIP, ANEU, GFR #### [address] [address] WBC 8.6 10 3/mcL Normal 4.6-10.8 [facility] ([place]) Comment on above: Performed By: #### C BC, CMP, KLARISSA, MDW, LIP, ANEU, GFR #### [address] [address] CMPon 10-20-2022 Albumin Level 3.4 G/dL Low 3.5-5.0 [facility] ([place] Comment on above: Performed By: #### C BC, CMP, KLARISSA, MDW, LIP, ANEU, GFR #### [address] [address] Albumin/Globulin [Mass ratio] 1.1 {ratio} Normal 1.1-2.5 [facility] ([place] Comment on above: Performed By: #### C BC, CMP, KLARISSA, MDW, LIP, ANEU, GFR #### [address] [address] ALP [Catalytic activity/Vol] 47 U/L Normal 40-135 [facility] ([place] Comment on above: Performed By: #### C BC, CMP, ADIFF, MDW, LIP, ANEU, GFR #### [address] [address] ALT [Catalytic activity/Vol] 21 U/L Normal 16-63 [facility] ([place]) Comment on above: Performed By: #### C BC, CMP, ADIFF, MDW, LIP, ANEU, GFR #### [address] [address] AST [Catalytic activity/Vol] 18 U/L Normal 10-40 [facility] ([place]) Comment on above: Performed By: #### C BC, CMP, ADIFF, MDW, LIP, ANEU, GFR #### [address] [address] Bili Total 0.2 mg/dL Normal 0.2-1.0 [facility] ([place]) Comment on above: Result Comment: Use of this assay is not recommended for patients undergoing treatment with eltrombopag due to the potential for falsely elevated results. Performed By: #### C BC, CMP, ADIFF, MDW, LIP, ANEU, GFR #### [address] [address] BUN/Creatinine Ratio 13 ratio Normal 7-27 [facility] ([place]) Comment on above: Performed By: #### C BC, CMP, ADIFF, MDW, LIP, ANEU, GFR #### [address] [address] Calcium [Mass/Vol] 8.8 mg/dL Normal 8.4-10.2 [facility] ([place]) Comment on above: Performed By: #### C BC, CMP, ADIFF, MDW, LIP, ANEU, GFR #### [address] [address] Chloride [Moles/Vol] 105 mmol/L Normal 98-107 [facility] ([place]) Comment on above: Performed By: #### C BC, CMP, ADIFF, MDW, LIP, ANEU, GFR #### [address] [address] CO2 [Moles/Vol] 27 mmol/L Normal 22-29 [facility] ([place] Comment on above: Performed By: #### C BC, CMP, ADIFF, MDW, LIP, ANEU, GFR #### [address] [address] Creatinine [Mass/Vol] 0.99 mg/dL Normal 0.70-1.30 [facility] ([place]) Comment on above: Performed By: #### C BC, CMP, ADIFF, MDW, LIP, ANEU, GFR #### [address] [address] Electrolyte Balance 9.0 mEq/L Normal 4.0-15.0 [facility] ([place]) Comment on above: Performed By: #### C BC, CMP, ADIFF, MDW, LIP, ANEU, GFR #### [address] [address] Globulin 3.2 G/dL Normal [facility] ([place]) Comment on above: Performed By: #### C BC, CMP, ADIFF, MDW, LIP, ANEU, GFR #### [address] [address] Glucose [Mass/Vol] 109 mg/dL High 70-105 [facility] ([place]) Comment on above: Performed By: #### C BC, CMP, ADIFF, MDW, LIP, ANEU, GFR #### [address] [address] Potassium [Moles/Vol] 3.9 mmol/L Normal 3.5-5.1 [facility] ([place]) Comment on above: Performed By: #### C BC, CMP, ADIFF, MDW, LIP, ANEU, GFR #### [address] [address] Sodium [Moles/Vol] 141 mmol/L Normal 136-145 [facility] ([place] Comment on above: Performed By: #### C BC, CMP, ADIFF, MDW, LIP, ANEU, GFR #### [address] [address] Total Protein 6.6 G/dL Normal 6.4-8.2 [facility] ([place] Comment on above: Performed By: #### C LANI, KLARISSA LOCKE MDW, LIP, ANEU, GFR #### [facility] [address] [place], [place] [address] Urea nitrogen [Mass/Vol] 13 mg/dL Normal 7-18 [facility] ([place] Comment on above: Performed By: #### C LANI, KLARISSA LOCKE MDW, LIP, ANEU, GFR #### [facility] [address] [place], [place] [address] CT ABD/PELVIS W/ IV CONTRAST ONLYon 10-20-2022 [...] the resident's findings and interpretation. Interpreted by: Edward Missinne Preliminary Report By: Rhonda Gaspar Electronically signed By Wang Fracnisco Dictated Date: 10/20/2022 6:05:23 PM Prelim Date: 10/20/2022 6:20:09 PM Sign Date: 10/20/2022 6:25:29 PM Ordering Provider: LEDY Nelson [facility] ([place]) LACon 10-20-2022 Lactic Acid Lvl 1.2 mmol/L Normal 0.4-2.0 [facility] ([place] Comment on above: Performed By: #### C BC, CMP, ADIFF, MDW, LIP, ANEU, GFR #### [place] [address] [place], [place] [address] LIPon 10-20-2022 Lipase Level 43 U/L Normal 16-77 [facility] ([place]) Comment on above: Performed By: #### C BC, CMP, ADIFF, MDW, LIP, ANEU, GFR #### [place] [address] [place], [place] [address] LABORATORYOrdered By: Usha Tenorio on 08-28-2022 Basophil, [...] Invalid Interpretation Code 3.2 - 4.8 G/dL AH ADM SS Albumin/Globulin [Mass ratio] 0.9 {ratio} Invalid Interpretation Code 0.9 - 1.6 ratio AH ADM SS ALP [Catalytic activity/Vol] 43 U/L Invalid Interpretation Code 38 - 126 U/L AH ADM SS ALT No additional P-5'-P [Catalytic activity/Vol] 12 U/L Invalid Interpretation Code 12 - 55 U/L AH ADM SS AST [Catalytic activity/Vol] 22 U/L Invalid Interpretation Code 8 - 34 U/L AH ADM SS Basophils (Bld) [#/Vol] 0.1 103/mcL Invalid Interpretation Code 0.0 - 0.3 10^3/mcL Workflow SS Basophils/100 WBC (Bld) 0.9 % Invalid Interpretation Code 0.0 - 2.5 % Workflow SS Bilirubin [Mass/Vol] 0.30 mg/dL Invalid Interpretation Code 0.20 - 1.20 mg/dL AH ADM SS Calcium [Mass/Vol] 9.5 mg/dL Invalid Interpretation Code 8.7 - 10.4 mg/dL AH ADM SS Chloride [Moles/Vol] 103 mmol/L Invalid Interpretation Code 98 - 110 mEq/L AH ADM SS CO2 [Moles/Vol] 27 mmol/L Invalid Interpretation Code 22 - 32 mEq/L AH ADM SS Creatinine [Mass/Vol] 0.73 mg/dL Invalid Interpretation Code 0.60 - 1.40 mg/dL ADM SS Electrolyte Balance 5.0 mEq/L Invalid Interpretation Code 4.0 - 15.0 mEq/L ADM SS Eosinophils (Bld) [#/Vol] 0.2 103/mcL Invalid Interpretation Code 0.0 - 0.7 10^3/mcL AH Workflow SS Eosinophils/100 WBC (Bld) 1.7 % Invalid Interpretation Code 0.0 - 6.0 % Workflow SS Erythrocyte distribution width (RBC) [Ratio] 13.2 % Invalid Interpretation Code 11.5 - 15.5 % Workflow SS GFR/1.73 sq M.predicted among blacks MDRD (S/P/Bld) [Vol rate/Area] ml/min/1.73sqm Invalid Interpretation Code ADM SS GFR/1.73 sq M.predicted among non-blacks MDRD (S/P/Bld) [Vol rate/Area] ml/min/1.73sqm Invalid Interpretation Code ADM SS Globulin 4.0 G/dL Invalid Interpretation Code 1.5 - 3.8 G/dL ADM SS Glucose [Mass/Vol] 87 mg/dL Invalid Interpretation Code 70 - 110 mg/dL ADM SS Hematocrit (Bld) [Volume fraction] 42.5 % Invalid Interpretation Code 40.0 - 52.0 % Workflow SS Hemoglobin (Bld) [Mass/Vol] 14.4 G/dL Invalid Interpretation Code 13.0 - 17.5 G/dL Workflow SS Lipase [Catalytic activity/Vol] 31 U/L Invalid Interpretation Code 12 - 53 U/L ADM SS Lymphocytes (Bld) [#/Vol] 2.4 103/mcL Invalid Interpretation Code 0.9 - 4.3 10^3/mcL Workflow SS Lymphocytes/100 WBC (Bld) 25.6 % Invalid Interpretation Code 20.0 - 40.0 % Workflow SS MCH (RBC) [Entitic mass] 31.3 pg Invalid Interpretation Code 27.0 - 33.0 pg Workflow SS MCHC 33.9 G/dL Invalid Interpretation Code 32.0 - 36.0 G/dL Workflow SS MCV (RBC) [Entitic vol] 92.2 fL Invalid Interpretation Code 81.0 - 100.0 fL Workflow SS Monocyte distribution width Auto (Bld) [...] Code Negative AH Auto Urine SS UA Nitrite Negative (08/18/22 12:18 PM) Invalid Interpretation Code Negative AH Auto Urine SS UA pH 7.5 (08/18/22 12:18 PM) Invalid Interpretation Code 5.0 - 8.0 Auto Urine SS UA Protein Negative Invalid Interpretation Code Negativemg/d L Auto Urine SS UA Spec Grav 1.020 (08/18/22 12:18 PM) Invalid Interpretation Code 1.006-1.029 Auto Urine SS UA Specimen Type Clean Catch (08/18/22 12:18 PM) Invalid Interpretation Code Auto Urine SS UA Urobilinogen 0.2 E.U./dL Invalid Interpretation Code 0.2-1.0E.U./ dL AH Auto Urine SS LABORATORYOrdered By: SYSTEM SYSTEM [...] [Moles/Vol] 6 mmol/L 3 - 13 mmol/L [facility] [employer] Calcium [Mass/Vol] 9.0 mg/dL 8.4 - 10. 4 mg/dL [facility] [employer] Chloride [Moles/Vol] 105 mmol/L 98 - 10 7 mmol/L [facility] [employer] CO2 [Moles/Vol] 26 mmol/L 22 - 30 mmol/L [facility] [employer] Creatinine [Mass/Vol] 0.71 mg/dL 0.66 - 1.25 mg/dL [facility] [employer] GFR/1.73 sq M.predicted MDRD (S/P/Bld) [Vol rate/Area] - PINF [facility] [employer] Comment on above: Calculation based on the Chronic Kidney Disease Epidemiology Collaboration (CKD-EPI) equation refit without adjustment for race Glucose [Mass/Vol] 100 mg/dL 70 - 100 mg/dL [facility] Interpretation and review of laboratory results Normal [facility] Potassium [Moles/Vol] 4.3 mmol/L 3.5 - 5.1 mmol/L [facility] Sodium [Moles/Vol] 137 mmol/L 135 - 145 mmol/L [facility] Urea nitrogen [Mass/Vol] 14 mg/dL 9 - 20 mg/dL [facility] CBC W Auto Differential pane l (Bld)Ordered By: Rhonda Biggs on 06-19-2022 Basophils (Bld) [#/Vol] 0.1 10*3/uL 0.0 - 0.2 10*3/uL [facility] Basophils/100 WBC (Bld) 1.3 % 0.0 - 2.0 % [facility] Eosinophils (Bld) [#/Vol] 0.2 10*3/uL 0.0 - 0.5 10*3/uL [facility] Eosinophils/100 WBC (Bld) 2.4 % 1.0 - 6.0 % [facility] Erythrocyte distribution width (RBC) [Ratio] 14.3 % 11.5 - 14.5 % [facility] Hematocrit (Bld) [Volume fraction] 42.3 % 40.0 - 52.0 % [facility] Hemoglobin (Bld) [Mass/Vol] 14.5 g/dL 13.0 - 18.0 g/dL [facility] Interpretation and review of laboratory results Abnormal [facility] Lymphocytes (Bld) [#/Vol] 2.9 10*3/uL 1.0 - 4.3 10*3/uL [facility] Lymphocytes/100 WBC (Bld) 31.3 % 20.0 - 40.0 % [facility] MCH (RBC) [Entitic mass] 30.7 pg 26.0 - 34.0 pg [facility] MCHC (RBC) [Mass/Vol] 34.2 % 32.0 - 36.0 % [facility] MCV (RBC) [Entitic vol] 90.0 fL 80.0 - 98.0 fL [facility] Monocytes (Bld) [#/Vol] 0.6 10*3/uL 0.0 - 0.8 10*3/uL [facility] Monocytes/100 WBC (Bld) 6.3 % 2.0 - 10.0 % [facility] Neutrophils (Bld) [#/Vol] 5.4 10*3/uL 1.8 - 7.0 10*3/uL [facility] Neutrophils/100 WBC (Bld) 58.7 % 40.0 - 80.0 % [facility] [employer] Nucleated RBC/100 WBC (Bld) [Ratio] 0.0 % [facility] [employer] Platelet mean volume (Bld) [Entitic vol] 7.0 fL Low 7.4 - 12.4 fL [facility] [employer] Platelets (Bld) [#/Vol] 296 10*3/uL 140 - 440 10*3/uL [facility] RBC (Bld) [#/Vol] 4.70 10*6/uL 4.40 - 5.9 0 10*6/uL [facility] WBC (Bld) [#/Vol] 9.2 10*3/uL 3.6 - 10.7 10*3/uL [facility] Laboratory - Drug toxicology on 06-19-2022 carBAMazepine [Mass/Vol] 14.5 ug/mL High 4.0 - 12.0 ug/mL [facility] No Panel Informationon 06-19 Interpretation and review of laboratory results Abnormal [facility] EMERGENCY REPORTon 2 EMERGENCY REPORT [facility] EMERGENCY ROOM REPORT NAME ACCOUNT SEX AGE ADMIT DISCHARGE PT MED. RECORD# NUMBER DATE DATE TYPE GA [id number] Saranya 42 05/22/22 05/23/22 3 PATRICK Guerrero [id number] ROOM: [facility] DATE OF : 1980 DICTATING PHYSICIAN: Patrick [...] and his mother. He works at an [employer] business. He has done that for sometime. [...] sinus mechanism without any evidence of acute MS or ischemia. Rate was 111. Emergency room [...] work excuse was provided. Dictated By: Patrick Vigil DO 05/23/22 07:02 JOB #: [id number] Transcribed By: am 05/23/22 13:53 Electronically signed by: E-SIGN PATRICK VIGIL DO 06/12/22 05:26 Page 2 of 2 PATRICK KOROMA Emergency Room Report A Normal [facility] CT ABDOMEN PELVIS WITH IV CO NTRAST [...] thickening. Please correlate with urinalysis for infection. [facility] Workstation ID: [id number] Dictated by: ROSAURA ROBLES on FriJun 10, 2022 2:32:31 AM EST Transcribed by: CHARLIE JIMNEEZ on FriJun 10, 2022 2:35:27 AM EST Finalized by: ROSAURA ROBLES on FriJun 10, 2022 2:46:42 AM EST Normal [facility] Comment on above: Order Comment: Injur y/Trauma [...] of the A1 segment of the left AUGUSITNA with compensatory enlargement of the right A1 [...] origins. 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 No large vessel occlusion is seen. 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 OTHER: No pathologic intracranial enhancement is seen. IMPRESSION: 1. No acute intracranial abnormality. No hemorrhage or mass effect. 2. Intracranial extracranial vessels demonstrate no stenosis, thrombus, dissection, aneurysm, or large vessel occlusion. 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 3. Acute on chronic haas sinusitis in [...] FriJun 06, 2022 12:50:41 AM EST Normal [facility] Comment on above: Order Comment: Injur y/Trauma [...] High 0.00 - 0.90 [facility] Comment on above: Performed By: #### 2 [id number] #### [facility],[address] [place] [address] CBC + DIFFon 05-23-2022 Baso # 0.10 x10EE3/UL Normal 0.00 - 0.10 [facility] Comment on above: Performed By: #### 2 23072 #### [facility],[address] [place] [address] Basophils/100 WBC (Bld) 1.1 % Normal 0.0 - 2.0 [facility] Comment on above: Performed By: #### 2 74220 #### [facility],[address] [place] [address] CBC + DIFF Normal [facility] Comment on above: Result Comment: CBC- COMPLETE BLOOD COUNT Performed By: #### 2 42343 #### [facility],[address] [place] [address] EO # 0.20 x10EE3/UL Normal 0.00 - 0.50 [facility] Comment on above: Performed By: #### 2 43989 #### [facility],[address] [place] [address] Eosinophils/100 WBC (Bld) 1.2 % Normal 0.0 - 7.0 [facility] Comment on above: Performed By: #### 2 19519 #### [facility],[address] [place] [address] Erythrocyte distribution width (RBC) [Ratio] 13.4 % Normal 12.0 - 15.6 [facility] Comment on above: Performed By: #### 2 15104 #### [facility],[address] [place] [address] Hematocrit (Bld) [Volume fraction] 44.7 % Normal 40.0 - 52.0 [facility] Comment on above: Performed By: #### 2 58706 #### [facility],[address] [place] [address] Hemoglobin (Bld) [Mass/Vol] 15.0 g/dL Normal 13.0 - 17.5 [facility] Comment on above: Performed By: #### 2 17250 #### [facility],[address] [place] [address] Lymph # 2.80 x10EE3/UL Normal 0.80 - 2.80 [facility] Comment on above: Performed By: #### 2 46164 #### [facility],[address] [place] [address] Lymphocytes/100 WBC (Bld) 19.8 % Low 20.0 - 45.0 [facility] Comment on above: Performed By: #### 2 62202 #### [facility],[address] [place] [address] MANUAL DIFF N/A Normal [facility] Comment on above: Performed By: #### 2 73900 #### [facility],[address] [place] [address] MCH (RBC) [Entitic mass] 30 pg Normal 27 - 33 [facility] Comment on above: Performed By: #### 2 64921 #### [facility],[address] [place] [address] MCHC 34 X10 3 Normal 32 - 36 [facility] Comment on above: Performed By: #### 2 44696 #### [facility],[address] [place] [address] MCV (RBC) [Entitic vol] 90 fL Normal 81 - 98 [facility] Comment on above: Performed By: #### 2 67121 #### [facility],[address] [place], [place] [id number] Rincon # 1.00 x10EE3/UL Normal 0.20 - 1.00 [facility] Comment on above: Performed By: #### 2 86849 #### [facility],[address] [place] [address] MONOS % 6.8 % Normal 0.0 - 10.0 [facility] Comment on above: Performed By: #### 2 09034 #### [facility],[address] [place] [address] Morphology Alonso (Bld) [Interp] N/A Normal [facility] Comment on above: Result Comment: {CD] Performed By: #### 2 77944 #### [facility],[address] [place] [address] Neut # 10.00 x10EE3/UL High 1.50 - 7.10 [facility] Comment on above: Performed By: #### 2 10868 #### [place] [address] Neutrophils/100 WBC (Bld) 71.1 % Normal 46.0 - 76.0 [facility] Comment on above: Performed By: #### 2 38681 #### [facility],[address] [place] [address] PLATELET 313 x10EE3/UL Normal 150 - 450 [facility] Comment on above: Performed By: #### 2 88663 #### [facility],[address] [place] [address] Platelet mean volume (Bld) [Entitic vol] 7.7 fL Normal 6.4 - 10.5 [facility] Comment on above: Result Comment: AUTO MATED DIFFERENTIAL Performed By: #### 2 76437 #### [facility],[address] [place] [address] RBC 4.95 x 10EE6/UL Normal 4.50 - 6.00 [facility] Comment on above: Performed By: #### 2 91345 #### [facility],[address] [place] [address] WBC 14.0 x 10EE3/UL High 4.5 - 10.8 [facility] Comment on above: Performed By: #### 2 21089 #### [facility],[address] [place], [place] [id number] CMP with eGFRon 12-08-2022 AGE 42 years Normal [facility] Comment on above: Performed By: #### 2 12555 #### [facility],[address] [place] [address] Albumin [Mass/Vol] 3.5 g/dL Normal 3.4 - 5.0 [facility] Comment on above: Performed By: #### 2 83531 #### [facility],[address] [place] [address] Albumin/Globulin [Mass ratio] 0.9 {ratio} Normal 0.9 - 1.6 [facility] [facility] Comment on above: Performed By: #### 2 27911 #### [facility],[address] [place] [address] 66432 ALK PHOS 44 U/L Low 46 - 116 [facility] Comment on above: Performed By: #### 2 18586 #### [facility],[address] [place] [address] 63986 ALT [Catalytic activity/Vol] 21 U/L Normal 16 - 63 [facility] Comment on above: Performed By: #### 2 44831 #### [facility],[address] [place] [address] 13343 Anion gap [Moles/Vol] 10 mmol/L Normal 10 - 20 [facility] Comment on above: Performed By: #### 2 85652 #### [facility],[address] [place] [address] 78927 AST [Catalytic activity/Vol] 16 U/L Normal 15 - 37 [facility] Comment on above: Performed By: #### 2 09559 #### [facility],[address] [place] [address] 71226 B/C RATIO 11 ratio Normal 0 - 30 [facility] Comment on above: Performed By: #### 2 21097 #### [facility],[address] [place] [address] 27925 Bilirubin [Mass/Vol] 0.2 mg/dL Normal 0.2 - 1.0 [facility] Comment on above: Performed By: #### 2 14554 #### [facility],[address] [place] [address] 14554 Calcium [Mass/Vol] 9.0 mg/dL Normal 8.5 - 10.1 [facility] Comment on above: Performed By: #### 2 01894 #### [facility],[address] [place] [address] 68103 Chloride [Moles/Vol] 101 mmol/L Normal 98 - 107 [facility] Comment on above: Performed By: #### 2 04082 #### [facility],[address] [place] [address] 68632 CMP with eGFR Normal [facility] Comment on above: Result Comment: COMP REHENSIVE METABOLIC PANEL Performed By: #### 2 06332 #### [facility],[address] [place] [address] 64430 CO2 [Moles/Vol] 30.2 mmol/L Normal 21.0 - 32.0 [facility] Comment on above: Performed By: #### 2 57697 #### [facility],[address] [place] [address] 63614 Creatinine [Mass/Vol] 0.91 mg/dL Normal 0.70 - 1.30 [facility] Comment on above: Performed By: #### 2 62436 #### [facility],[address] [place] [address] 40333 GFR/1.73 sq M.predicted among non-blacks MDRD (S/P/Bld) [Vol rate/Area] mL/min/{1.73_m2} Normal 60 - 999 [facility] Comment on above: Performed By: #### 2 29124 #### [facility],[address] [place] [address] 98794 Result Comment: ACCO RDING TO THE NATIONAL KIDNEY DISEASE EDUCATION PROGRAM(NKDE), A NORMAL eGFR IS A VALUE GREATER THAN OR EQUAL TO 60 ML/MIN/1.73 SQ METERS. CHRONIC KIDNEY DISEASE: <60mL/MIN/1.73 SQ METERS KIDNEY FAILURE: <15mL/MIN/1.73 SQ METERS THIS TEST SHOULD ONLY BE USED FOR PATIENTS 18 YEARS OF AGE AND OLDER. Globulin (S) [Mass/Vol] 3.7 g/dL Normal 1.5 - 3.8 [facility] Comment on above: Performed By: #### 2 41122 #### [facility],[address] [place] [address] 44119 Glucose [Mass/Vol] 104 mg/dL Normal 74 - 106 [facility] Comment on above: Performed By: #### 2 35169 #### [facility],[address] [place] [address] 96132 Potassium [Moles/Vol] 3.8 mmol/L Normal 3.5 - 5.1 [facility] Comment on above: Performed By: #### 2 64872 #### [facility],[address] [place] [address] 25982 Protein [Mass/Vol] 7.2 g/dL Normal 6.4 - 8.2 [facility] Comment on above: Performed By: #### 2 14170 #### [facility],[address] [place] [address] 16697 Sodium [Moles/Vol] 137 mmol/L Normal 136 - 145 [facility] Comment on above: Performed By: #### 2 18074 #### [facility],[address] [place] [address] 14801 Urea nitrogen [Mass/Vol] 10 mg/dL Normal 7 - 18 [facility] Comment on above: Performed By: #### 2 13018 #### [facility],[address] [place] [address] BRAIN W/O CONTRASTon 12-0 CT BRAIN W/O CONTRAST [place] [address] Patient: PATRICK KOROMA Phone#: : [phone] Age: 42 Gender: M Pt. Type: ER Account: [id number] Location: [facility] Ordering: DR. PATRICK VIGIL Exam Date: 05/22/2022/23:10 Family Phys: Charge Code: [id number] Physician: Crook Order #: [id number] Dose#: [id number] PROCEDURE: CT BRAIN WITHOUT CONTRAST COMPARISON: [facility], CT, BRAIN W/O CON, 12/03/2011, 2:09. INDICATIONS: [...] 05/23/2022 at 14:41 Normal [facility] SEDRATEon 05-23-2022 SEDRATE 13 mm/hr Normal 0 - 20 [facility] Comment on above: Performed By: #### 2 56386 #### [facility],[address] [place] [address] TROPONIN I, HIGH SENSITIVITY on 05-23-2022 HS TROPONIN 4.4 pg/mL Normal 0.0 - 76.2 [facility] Comment on above: Performed By: #### 2 89506 #### [facility],[address] [place], [place] [address] XR SHOULDER RIGHT (MIN 2 VIE WS)on [...] Rosas Silva MD 04/25/22 Final result Normal [facility] Comment on above: Order Comment: Reaso n for exam:->ac joint deformity/pain No acute abnormality . [facility] EXAMINATION: THREE XRAY VIEWS OF THE RIGHT SHOULDER 04/25/2022 5:40 pm COMPARISON: None. HISTORY: ORDERING SYSTEM PROVIDED HISTORY: ac joint deformity/pain TECHNOLOGIST PROVIDED HISTORY: Reason for exam:->ac joint deformity/pain FINDINGS: Glenohumeral joint is normally aligned. No evidence of acute fracture or dislocation. No abnormal periarticular calcifications. The AC joint is unremarkable in appearance. Visualized lung is unremarkable. [facility] Rosas Silva MD [...] lung is unremarkable. IMPRESSION: No acute abnormality. [email or web address] Phone: Radiology Study observation (narrative) [email or web address] Phone: XR SHOULDER RIGHT (MIN 2 VIE WS)Ordered By: Rosas Silva on 04-25-2022 [email or web address] Phone: XR WRIST RIGHT (MIN 3 VIEWS) [...] Abdifatah Child DO 04/03/22 Final result Normal [facility] Comment on above: Order Comment: Reaso n for exam:->crush injury No acute osseous abnormality involving the right wrist. [facility] EXAMINATION: XRAY VIEWS OF THE RIGHT WRIST 04/03/2022 4:10 pm COMPARISON: None. HISTORY: ORDERING SYSTEM PROVIDED HISTORY: crush injury TECHNOLOGIST PROVIDED HISTORY: Reason for exam:->crush injury FINDINGS: No fracture or dislocation involving the right wrist. Normal carpal bone alignment. No radiopaque foreign body. [facility] Abdifatah Child DO - 04/03/2022 EXAMINATION: XRAY VIEWS OF THE RIGHT WRIST 04/03/2022 4:10 pm COMPARISON: None. HISTORY: ORDERING SYSTEM PROVIDED HISTORY: crush injury TECHNOLOGIST PROVIDED HISTORY: Reason for exam:->crush injury FINDINGS: No fracture or dislocation involving the right wrist. Normal carpal bone alignment. No radiopaque foreign body. IMPRESSION: No acute osseous abnormality involving the right wrist. [email or web address] Phone: Radiology Study observation (narrative) [email or web address] Phone: XR WRIST RIGHT (MIN 3 VIEWS) Ordered By: Abdifatah Child on 04-03-2022 [email or web address] Phone: CT CERVICAL SPINE WO BRAYDENNUNO Ton 03-08-2022 Patient Name: PATRICK KOROMA Computed Tomography ACCESSION EXAM DATE/TIME PROCEDURE ORDERING PROVIDER [id number] 03/08/2022 01:[address] Spine Cervical w/o [id number] -DARRION, GILES Contrast CPT code 42687 Reason For Exam (CT Spine Cervical w/o [...] Date and Time: 03/08/2022 1:50 [facility] Shankar Haas MD - 03/08/2022 [id number] Tomography ACCESSION EXAM DATE/TIME PROCEDURE ORDERING PROVIDER [id number] 03/08/2022 01:[address] Spine Cervical w/o [id number] -DARRION, GILES Contrast CPT code 58523 Reason For Exam (CT Spine Cervical w/o [...] KEVIN Transcribed Date and Time: 03/08/2022 1:50 [facility] Work Phone: [facility] Work Phone: CT HEAD WO CONTRASTon 2021 Patient Name: PATRICK KOROMA Computed Tomography ACCESSION EXAM DATE/TIME PROCEDURE ORDERING PROVIDER [id number] 03/08/2022 01:[address] Head or Brain w/o [id number] -DARRION, GILES Contrast CPT code 54169 Reason For Exam (CT Head or Brain [...] KEVIN Transcribed Date and Time: 03/08/2022 1:48 [facility] Shankar Haas MD - 03/08/2022 Patient Name: PATRICK KOROMA Computed Tomography ACCESSION EXAM DATE/TIME PROCEDURE ORDERING PROVIDER [id number] 03/08/2022 01:[address] Head or Brain w/o [id number] -DARRION, GILES Contrast CPT code 79849 Reason For Exam (CT Head or Brain [...] KEVIN Transcribed Date and Time: 03/08/2022 1:48 [facility] Work Phone: CT HEAD WO CONTRASTOrdered B y: Shankar Haas on 03-08-2022 [facility] Work Phone: CT Head or Brain w/o Contras ton 03-08-2022 CT Head or Brain w/o Contrast Patient Name: PATRICK KOROMA Computed Tomography ACCESSION EXAM DATE/TIME PROCEDURE ORDERING PROVIDER [id number] 03/08/2022 01:[address] Head or Brain w/o [id number] -DARRION, GILES Contrast CPT code 38188 Reason For Exam (CT Head or Brain [...] Transcribed Date and Time: 03/08/2022 1:48 Normal [facility] CT Spine Cervical w/o Contra stochaparro 03-08-2022 CT Spine Cervical w/o Contrast Patient Name: PATRICK KOROMA Computed Tomography ACCESSION EXAM DATE/TIME PROCEDURE ORDERING PROVIDER [id number] 03/08/2022 01:[address] Spine Cervical w/o [id number] -GILES MAIER Contrast CPT code 40506 Reason For Exam (CT Spine Cervical w/o [...] Transcribed Date and Time: 03/08/2022 1:50 Normal [facility] ED Provider Noteon ED Provider Note [facility] ED EMERGENCY DEPARTMENT ENCOUNTER Pt Name: [...] plan and expressed understanding. I am the photo technologist of record REVAL: Remained hemodynamically stable, neurovascular [...] Patient condition is good PATIENT REFERRED TO: [facility] [address] [facility] [phone] Schedule an appointment as soon as possible for a visit in 1 week DISCHARGE MEDICATIONS: New Prescriptions No medications o (more content not included)... Normal [facility] No Panel Informationon 03-08 Radiology Study observation (narrative) [facility] Work Phone: Absolute lymphocyte counton 01-01-2022 Lymphocytes Auto (Unsp spec) [#/Vol] 2.19 10*3/uL 0.83-4.51 [facility] Work Phone: Basophil percentageon 2021 Basophils/100 WBC (Bld) 0.5 % 0-1 [facility] Work Phone: Bilirubin [Mass/Vol] 0.20 mg/dL 0.20-1.00 [facility] Work Phone: Comment on above: For patients on eltr ombopag therapy, use of Dimension [place] TBIL is not recommended. Chloride [Moles/Vol] 111 mmol/L 98-107 [facility] Work Phone: Eosinophils/100 WBC (Bld) 1.6 % 0-5 [facility] Work Phone: Glucose [Mass/Vol] 103 mg/dL 74-106 [facility] Work Phone: Comment on above: Fasting Glucose resu lt from 100 to 125 mg/dL suggests IMPAIRED HOMEOSTASIS per A.D.A. criteria. Neutrophils (Bld) [#/Vol] 7.1 10*3/uL 2.0-7.7 [facility] Work Phone: Neutrophils/100 WBC (Bld) 70.0 % 47-70 [facility] Work Phone: Potassium [Moles/Vol] 3.9 mmol/L 3.5-5.1 [facility] Work Phone: Protein [Mass/Vol] 7.1 g/dL 6.4-8.2 [facility] Work Phone: Sodium [Moles/Vol] 140 mmol/L 136-145 [facility] Work Phone: WBC (Bld) [#/Vol] 10.2 10*3/uL 4.4-11.0 [facility] Work Phone: Blood erythrocytes count (nu mber/volume)on 01-01-2022 RBC (Bld) [#/Vol] 4.65 10*6/uL 4.6-6.2 [facility] Work Phone: Blood hemoglobin measurement (mass/volume)on 01-01-2022 Hemoglobin (Bld) [Mass/Vol] 14.1 g/dL 13.0-16.5 [facility] Work Phone: Blood lymphocytes/100 leukoc yteson 01-01-2022 Lymphocytes/100 WBC (Bld) 21.6 % 19-41 [facility] Work Phone: Blood monocytes/100 leukocyt eson 01-01-2022 Monocytes/100 WBC (Bld) 5.8 % 0-10 [facility] Work Phone: Blood platelet mean volumeon 01-01-2022 Platelet mean volume (Bld) [Entitic vol] 9.2 fL 6.2-12.0 [facility] Work Phone: Determination of erythrocyte mean corpuscular volume (MCV)on 01-01-2022 MCV (RBC) [Entitic vol] 92.7 fL 80-94 [facility] Work Phone: Direct bilirubinon Bilirubin.direct [Mass/Vol] 0.09 mg/dL 0.00-0.30 [facility] Work Phone: Hematocrit Auto (Bld) [Volum e fraction]on 01-01-2022 Hematocrit (Bld) [Volume fraction] 43.1 % 40-54 [facility] Work Phone: INR in Blood by Coagulation assayon 01-01-2022 INR Coag (Bld) [Relative time] 0.9 {INR} [facility] Work Phone: Laboratory - Chemistry and C hemistry - challengeon 01-01-2022 ALP [Catalytic activity/Vol] 43 U/L 45-117 [facility] Work Phone: ALT [Catalytic activity/Vol] 27 U/L 16-61 [facility] Work Phone: CO2 [Moles/Vol] 25.0 mmol/L 21.0-32.0 [facility] Work Phone: Globulin (S) [Mass/Vol] 3.8 g/dL 2.2-4.2 [facility] Work Phone: Urea nitrogen/Creatinine [Mass ratio] 9.2 mg/mg 10-20 [facility] Work Phone: Laboratory - Coagulationon 0 01-01-2022 aPTT Coag (Bld) [Time] 25.8 s 24.1-36.2 [facility] Work Phone: PT Coag (PPP) [Time] 11.9 s 11.7-14.9 [facility] Work Phone: Laboratory - Hematology and Cell countson 01-01-2022 Erythrocyte distribution width (RBC) [Entitic vol] 43.3 fL 35.1-43.9 [facility] Work Phone: Erythrocyte distribution width (RBC) [Ratio] 12.7 % 11.6-14.6 [facility] Work Phone: Immature granulocytes/100 WBC (Bld) 0.500 % 0.0-0.9 [facility] Work Phone: Comment on above: IG% - Immature Granu locytes (promyelocytes, myelocytes and metamyelocytes) > 1% indicates that a LEFT SHIFT is Present. MCH (RBC) [Entitic mass] 30.3 pg 27.0-32.0 [facility] Work Phone: Nucleated RBC/100 WBC (Bld) [Ratio] 0 % 0-5 [facility] Work Phone: MCHC Auto (RBC) [Mass/Vol]on 01-01-2022 MCHC (RBC) [Mass/Vol] 32.7 g/dL 32-36 [facility] Work Phone: No Panel Informationon 01-01 Estimated Creatinine Clearance Calc 125.00 ml/min [facility] Work Phone: Estimated GFR (MDRD) Amer 123 mL/min >60 [facility] Work Phone: Comment on above: GFR Calc Estimated GFR (MDRD) Non-Af Amer 101 mL/min >60 [facility] Work Phone: Comment on above: Non- GFR Calc Platelets bldon 01-01-2022 Platelets (Bld) [#/Vol] 328 10*3/uL 150-450 [facility] Work Phone: Serum or plasma albumin za urement (mass/volume)on 01-01-2022 Albumin [Mass/Vol] 3.3 g/dL 3.2-5.0 [facility] Work Phone: Serum or plasma calcium za urement (mass/volume)on 01-01-2022 Calcium [Mass/Vol] 9.1 mg/dL 8.5-10.1 [facility] Work Phone: Serum or plasma creatinine m easurement (mass/volume)on 01-01-2022 Creatinine [Mass/Vol] 0.87 mg/dL 0.70-1.30 [facility] Work Phone: Comment on above: The validity of the calculated GFR & GFRAA in patients over 70 years has not been determined. Clinical correlation is essential. Serum or plasma urea nitroge n measurement (mass/volume)on 01-01-2022 Urea nitrogen [Mass/Vol] 8 mg/dL 7-18 [facility] Work Phone: Thin prep Papanicolaou smear with manual screeningon 01-01-2022 Thin prep Papanicolaou smear with manual screening 22 U/L 15-37 [facility] Work Phone: Thin prep Papanicolaou smear with manual screening 4 5-15 [facility] Work Phone: LABORATORYOrdered By: Sara Echeverria [...] 11-15 Calcium [Mass/Vol] 8.8 mg/dL Normal 8.4-10.4 [facility] Comment on above: Performed By: #### L ACT3, MG3, BMP3, HEMDF #### [facility] [address] [place] [address] Glucose [Mass/Vol] 99 mg/dL Normal 70-100 [facility] Comment on above: Performed By: #### L ACT3, MG3, BMP3, HEMDF #### [facility] [address] [place] [address] Anion gap [Moles/Vol] 6 mmol/L Normal 3-13 [facility] Comment on above: Performed By: #### L ACT3, MG3, BMP3, HEMDF #### [facility] [address] [place] [address] CO2 [Moles/Vol] 27 mmol/L Normal 22-30 [facility] Comment on above: Performed By: #### L ACT3, MG3, BMP3, HEMDF #### [facility] [address] [place] [address] Creatinine [Mass/Vol] 0.69 mg/dL Normal 0.52-1.25 [facility] Comment on above: Performed By: #### L ACT3, MG3, BMP3, HEMDF #### [facility] [address] [place] [address] eGFR OTHER > 90.0 Normal >60 [facility] Comment on above: Result Comment: KDIG [...] #### L ACT3, MG3, BMP3, HEMDF #### [place] [address] [place] [address] GFR/1.73 sq M.predicted among blacks MDRD (S/P/Bld) [Vol rate/Area] mL/min/{1.73_m2} Normal >60 [facility] Comment on above: Performed By: #### L ACT3, MG3, BMP3, HEMDF #### [address] [address] Urea nitrogen [Mass/Vol] 5 mg/dL Low 7-17 [facility] Comment on above: Performed By: #### L ACT3, MG3, BMP3, HEMDF #### [address] [address] Chloride [Moles/Vol] 105 mmol/L Normal 98-107 [facility] Comment on above: Performed By: #### L ACT3, MG3, BMP3, HEMDF #### [address] [address] Potassium [Moles/Vol] 3.8 mmol/L Normal 3.5-5.1 [facility] Comment on above: Performed By: #### L ACT3, MG3, BMP3, HEMDF #### [address] [address] Sodium [Moles/Vol] 138 mmol/L Normal 135-145 [facility] Comment on above: Performed By: #### L ACT3, MG3, BMP3, HEMDF #### [address] [address] [address] Abdomen/Pelvis w/ Contras ton 12-05-2021 CT Abdomen/Pelvis w/ Contrast Patient Name: PATRCIK KOROMA Computed Tomography ACCESSION EXAM DATE/TIME PROCEDURE ORDERING PROVIDER [id number] 12/05/2021 14:[address] Abdomen/Pelvis w/ [place] [id number] -JACQUIE, Contrast (IV Onl SUZIE CPT code 63639 Q9967 Reason For Exam (CT Abdomen/Pelvis w/ [...] Transcribed Date and Time: 12/05/2021 2:32 Normal [facility] Hemogram w/ Autodiffon 12-05 Abs Baso Cnt 0.1 10*3/uL Normal 0.0-0.2 [facility] Comment on above: Performed By: #### L ACT3, MG3, BMP3, HEMDF #### [address] [address] Abs Neutrophile Cnt 7.3 10*3/uL High 1.8-7.0 [facility] Comment on above: Performed By: #### L ACT3, MG3, BMP3, HEMDF #### [address] [address] Basophils/100 WBC (Bld) 0.7 % Normal 0.0-2.0 [facility] Comment on above: Performed By: #### L ACT3, MG3, BMP3, HEMDF #### [address] [address] Eosinophils (Bld) [#/Vol] 0.2 10*3/uL Normal 0.0-0.5 [facility] Comment on above: Performed By: #### L ACT3, MG3, BMP3, HEMDF #### [address] [address] Eosinophils/100 WBC (Bld) 2.0 % Normal 1.0-6.0 [facility] Comment on above: Performed By: #### L ACT3, MG3, BMP3, HEMDF #### [address] [address] Erythrocyte distribution width (RBC) [Ratio] 13.1 % Normal 11.5-14.5 [facility] Comment on above: Performed By: #### L ACT3, MG3, BMP3, HEMDF #### [address] [address] Granulocytes/100 WBC (Bld) 76.6 % Normal 40.0-80.0 [facility] Comment on above: Performed By: #### L ACT3, MG3, BMP3, HEMDF #### [address] [place] [address] Hematocrit (Bld) [Volume fraction] 39.4 % Low 40.0-52.0 [facility] Comment on above: Performed By: #### L ACT3, MG3, BMP3, HEMDF #### [address] [address] Hemoglobin (Bld) [Mass/Vol] 13.6 g/dL Normal 13.0-18.0 [facility] Comment on above: Performed By: #### L ACT3, MG3, BMP3, HEMDF #### [address] [address] Lymphocytes (Bld) [#/Vol] 1.3 10*3/uL Normal 1.0-4.3 [facility] Comment on above: Performed By: #### L ACT3, MG3, BMP3, HEMDF #### [address] [address] Lymphocytes/100 WBC (Bld) 13.9 % Low 20.0-40.0 [facility] Comment on above: Performed By: #### L ACT3, MG3, BMP3, HEMDF #### [address] [address] MCH (RBC) [Entitic mass] 31.6 pg Normal 26.0-34.0 [facility] Comment on above: Performed By: #### L ACT3, MG3, BMP3, HEMDF #### [address] [address] MCHC 34.5 % Normal 32.0-36.0 [facility] Comment on above: Performed By: #### L ACT3, MG3, BMP3, HEMDF #### [address] [address] MCV (RBC) [Entitic vol] 91.7 fL Normal 80.0-98.0 [facility] Comment on above: Performed By: #### L ACT3, MG3, BMP3, HEMDF #### [address] [address] Monocytes (Bld) [#/Vol] 0.7 10*3/uL Normal 0.0-0.8 [facility] Comment on above: Performed By: #### L ACT3, MG3, BMP3, HEMDF #### [place] [address] [place] [address] Monocytes/100 WBC (Bld) 6.8 % Normal 2.0-10.0 [facility] Comment on above: Performed By: #### L ACT3, MG3, BMP3, HEMDF #### [place] [address] [place] [address] Platelet mean volume (Bld) [Entitic vol] 7.4 fL Normal 7.4-12.4 [facility] Comment on above: Result Comment: MPV is a calculated measurement using platelet volume ratio. Performed By: #### L ACT3, MG3, BMP3, HEMDF #### [place] [address] [place] [address] Platelets (Bld) [#/Vol] 389 10*3/uL Normal 140-440 [facility] Comment on above: Performed By: #### L ACT3, MG3, BMP3, HEMDF #### [place] [address] [place] [address] RBC (Bld) [#/Vol] 4.30 10*6/uL Low 4.40-5.90 [facility] Comment on above: Performed By: #### L ACT3, MG3, BMP3, HEMDF #### [place] [address] [place] [address] WBC (Bld) [#/Vol] 9.6 10*3/uL Normal 3.6-10.7 [facility] Comment on above: Performed By: #### L ACT3, MG3, BMP3, HEMDF #### [place] [address] [place] [address] Lactic Acidon 12-05-2021 Lactate [Moles/Vol] 1.1 mmol/L Normal 0.7-2.0 [facility] Comment on above: Performed By: #### L ACT3, MG3, BMP3, HEMDF #### [facility] [address] [place] [address] Magnesiumon 12-05-2021 Magnesium [Mass/Vol] 2.2 mg/dL Normal 1.6-2.3 [facility] Comment on above: Performed By: #### L ACT3, MG3, BMP3, HEMDF #### [facility] [address] [place] [address] LABORATORYOrdered By: Sara Echeverria on 11-30-2021 Basophil, [...] 12-29-2016 Patient Summary Documents Normal [facility] Note on 12-24-2016 [facility] Note Normal [facility] Patient Summary Documentson 12-23-2016 Patient Summary Documents Normal [facility] XR WRIST COMPLETE RIGHTon XR WRIST COMPLETE [...] Date: 12/23/2016 4:46:15 PM Normal [facility] Note on 12-16-2016 [facility] Note Normal [facility] Patient Summary Documentson 12-16-2016 Patient Summary Documents Normal [facility] Vital Signs Date Time Vital Sign Value Performing Clinician Berkley durham 12-07-2024 00:21-0400 Body temperature 96.9 [degF] Dr. Cristian Barrera DO Work Phone: [facility] 12-07-2024 00:21-0400 Diastolic blood pressure 92 mm[Hg] Dr. Cristian Barrera DO Work Phone: [facility] 12-07-2024 00:21-0400 Heart rate 103 /min Dr. Cristian Barrera DO Work Phone: [facility] 12-07-2024 00:21-0400 Respiratory rate 16 /min Dr. Cristian Barrera DO Work Phone: [facility] 12-07-2024 00:21-0400 SaO2% (BldA) [Mass fraction] 99 % Dr. Cristian Tate Work Phone: 2(121)[phone] [place] [address] 12-07-2024 00:21-0400 Systolic blood pressure 137 mm[Hg] Dr. Cristian Tate Work Phone: 3(658)[phone] [place] [address] 12-06-2024 23:19-0400 Body height 187.[address] Cristian Tate Work Phone: 1(142)[phone] [place] [address] 12-06-2024 23:19-0400 Body mass index (BMI) [Ratio] 43.9 kg/m2 Dr. Cristian Tate Work Phone: 4(181)[phone] [place] [address] 12-06-2024 23:19-0400 Body weight 155.[address] Cristian Tate Work Phone: 6(729)[phone] [place] [address] 09-19-2024 22:25-0400 Body temperature 97 [degF] Dr. Cristian Tate Work Phone: 6(321)[phone] [place] [address] 09-19-2024 22:25-0400 Diastolic blood pressure 93 mm[Hg] Dr. Cristain Tate Work Phone: 8(405)[phone] [place] [address] 09-19-2024 22:25-0400 Heart rate 99 /min Dr. Cristian Tate Work Phone: [phone] [place] [address] 09-19-2024 22:25-0400 Respiratory rate 16 /min Dr. Cristian Tate Work Phone: [phone] [place] [address] 09-19-2024 22:25-0400 SaO2% (BldA) [Mass fraction] 97 % Dr. Cristian Tate Work Phone: [phone] [place] [address] 09-19-2024 22:25-0400 Systolic blood pressure 136 mm[Hg] Dr. Cristian Tate Work Phone: [phone] [place] [address] 09-19-2024 21:32-0400 Body mass index (BMI) [Ratio] 44.7 kg/m2 Dr. Cristian Le DO Work Phone: [facility] 09-19-2024 21:32-0400 Body weight 158.[address] Cristian Barrera DO Work Phone: [facility] 09-19-2024 21:16-0400 Body height 187.[address] Cristian Barrera DO Work Phone: [facility] 08-24-2024 22:40-0400 Body temperature 99.1 [degF] No Primary Care Physician [facility] 08-24-2024 22:40-0400 Diastolic blood pressure 70 mm[Hg] No [facility] 08-24-2024 22:40-0400 Heart rate 80 /min No [facility] 08-24-2024 22:40-0400 Respiratory rate 16 /min No [facility] 08-24-2024 22:40-0400 SaO2% (BldA) [Mass fraction] 100 % No [facility] 08-24-2024 22:40-0400 Systolic blood pressure 118 mm[Hg] No [facility] 08-24-2024 21:04-0400 Body height 187.96 cm No [facility] 08-24-2024 21:04-0400 Body mass index (BMI) [Ratio] 44.1 kg/m2 No [facility] 08-24-2024 21:04-0400 Body weight 155.99 kg No [facility] 08-13-2024 12:44-0500 Body height 188 cm Stephon Benavides MD Work Phone: [facility] 08-13-2024 12:44-0500 Body mass index (BMI) [Ratio] 43.78 kg/m2 Stephon Benavides MD Work Phone: [facility] 08-13-2024 12:44-0500 Body weight 154.68 kg Stephon Benavides MD Work Phone: [facility] 08-13-2024 12:44-0500 Diastolic blood pressure 95 mm[Hg] Stephon Benavides MD Work Phone: [facility] 08-13-2024 12:44-0500 Heart rate 125 /min Stephon Benavides MD Work Phone: [facility] 08-13-2024 12:44-0500 Respiratory rate 16 /min Stephon Benavides MD Work Phone: [facility] 08-13-2024 12:44-0500 Systolic blood pressure 132 mm[Hg] Stephon Benavides MD Work Phone: [facility] 06-29-2024 14:07-0500 Body height 188 cm Jonathan Gonzalez MD Work Phone: [facility] 06-29-2024 14:07-0500 Body mass index (BMI) [Ratio] 43.65 kg/m2 Jonathan Gonzalez MD Work Phone: [facility] 06-29-2024 14:07-0500 Body temperature 97.81 [degF] Jonathan Gonzalez MD Work Phone: [facility] 06-29-2024 14:07-0500 Body weight 154.22 kg Jonathan Gonzalez MD Work Phone: [facility] 06-29-2024 14:07-0500 Diastolic blood pressure 94 mm[Hg] Jonathan Gonzalez MD Work Phone: [facility] 06-29-2024 14:07-0500 Heart rate 91 /min Jonathan Gonzalez MD Work Phone: [facility] 06-29-2024 14:07-0500 Respiratory rate 18 /min Jonathan Gonzalez MD Work Phone: [facility] 06-29-2024 14:07-0500 SaO2% (BldA) [Mass fraction] 97 % Jonathan Gonzalez MD Work Phone: [facility] 06-29-2024 14:07-0500 Systolic blood pressure 141 mm[Hg] Jonathan Gonzalez MD Work Phone: [facility] 05-16-2024 21:44-0500 Body temperature 98.42 [degF] NIDAL CHOUJAA DO [facility] 05-16-2024 21:44-0500 Diastolic Blood Pressure Non-Invasive 95 mm[Hg] NIDAL CHOUJAA DO [facility] 05-16-2024 21:44-0500 Heart rate 96 /min NIDAL CHOUJAA DO [facility] 05-16-2024 21:44-0500 Respiratory rate 18 /min NIDAL CHOUJAA DO [facility] 05-16-2024 21:44-0500 Systolic Blood Pressure Non-Invasive 141 mm[Hg] NIDAL CHOUJAA DO [facility] 09-16-2023 11:05-0400 Body height 188 cm Pacc 6 Work Phone: [facility] 09-16-2023 11:05-0400 Body temperature 98.49 [degF] Pacc 6 Work Phone: [facility] 09-16-2023 11:05-0400 Body weight 162.8 kg Pacc 6 Work Phone: [facility] 09-16-2023 11:05-0400 Diastolic blood pressure 86 mm[Hg] Pacc 6 Work Phone: [facility] 09-16-2023 11:05-0400 Heart rate 101 /min Pacc 6 Work Phone: [facility] 09-16-2023 11:05-0400 SaO2% (BldA) [Mass fraction] 98 % Pacc 6 Work Phone: [facility] 09-16-2023 11:05-0400 Systolic blood pressure 143 mm[Hg] Pacc 6 Work Phone: [facility] 09-11-2023 18:11-0400 Body temperature 98.06 [degF] DAVONTE Segura [facility] 09-11-2023 18:11-0400 Diastolic Blood Pressure Non-Invasive 77 mm[Hg] DAVONTE ONEILL MD [facility] 09-11-2023 18:11-0400 Heart rate 98 /min DAVONTE Segura [facility] 09-11-2023 18:11-0400 Respiratory rate 20 /min DAVONTE Segura [facility] 09-11-2023 18:11-0400 Systolic Blood Pressure Non-Invasive 151 mm[Hg] DAVONTE ONEILL MD [facility] 08-27-2023 10:45-0400 Diastolic Blood Pressure Non-Invasive 90 mm[Hg] REYES TERESA DO [facility] 08-27-2023 10:45-0400 Heart rate 94 /min REYES TERESA DO [facility] 08-27-2023 10:45-0400 Respiratory rate 20 /min REYES TERESA DO [facility] 08-27-2023 10:45-0400 Systolic Blood Pressure Non-Invasive 123 mm[Hg] REYES TERESA DO [facility] 08-27-2023 10:35-0400 Diastolic Blood Pressure Non-Invasive 90 mm[Hg] REYES TERESA DO [facility] 08-27-2023 10:35-0400 Heart rate 98 /min REYES TERESA DO [facility] 08-27-2023 10:35-0400 Respiratory rate 15 /min REYES TERESA DO [facility] 08-27-2023 10:35-0400 Systolic Blood Pressure Non-Invasive 123 mm[Hg] REYES TERESA DO [facility] 08-27-2023 10:20-0400 Body temperature 97.7 [degF] REYES TERESA DO [facility] 08-27-2023 10:20-0400 Diastolic Blood Pressure Non-Invasive 68 mm[Hg] REYES TERESA DO [facility] 08-27-2023 10:20-0400 Heart rate 88 /min REYES TERESA DO [facility] 08-27-2023 10:20-0400 Respiratory rate 14 /min REYES TERESA DO [facility] 08-27-2023 10:20-0400 Systolic Blood Pressure Non-Invasive 113 mm[Hg] REYES TERESA DO [facility] 08-27-2023 10:15-0400 Heart rate 86 /min REYES TERESA DO [facility] 08-27-2023 10:15-0400 Respiratory Rate - Anes 13 br/min REYES TERESA DO [facility] 08-27-2023 10:10-0400 Heart rate 96 /min REYES TERESA DO [facility] 08-27-2023 10:10-0400 Respiratory Rate - Anes 15 br/min REYES TERESA DO [facility] 08-27-2023 10:05-0400 Heart rate 104 /min REYES TERESA DO [facility] 08-27-2023 10:05-0400 Respiratory Rate - Anes 30 br/min REYES TERESA DO [facility] 08-27-2023 09:46-0400 Body temperature 97.7 [degF] REYES TERESA DO [facility] 08-27-2023 09:40-0400 Body height 184.5 cm REYES TERESA DO [facility] 08-27-2023 09:40-0400 Body temperature 97.7 [degF] REYES TERESA DO [facility] 08-27-2023 09:40-0400 Body weight 143.1 kg REYES TERESA DO [facility] 08-27-2023 09:40-0400 Body weight 42.04 kg/m2 REYES TERESA DO [facility] 08-06-2023 09:01-0500 Body height 188 cm Kelley Meraz APRN.BERT, DNP Work Phone: [facility] 08-06-2023 09:01-0500 Body weight 158.76 kg Kelley Meraz APRN.BERT, DNP Work Phone: [facility] 08-06-2023 09:01-0500 Diastolic blood pressure 101 mm[Hg] Kelley Meraz APRN.BERT, DNP Work Phone: [facility] 08-06-2023 09:01-0500 Heart rate 107 /min Kelley Meraz APRN.BERT, DNP Work Phone: [facility] 08-06-2023 09:01-0500 SaO2% (BldA) [Mass fraction] 98 % Kelley Meraz SOCIAL WORK CASE MANAGER.CURTAIN MENDER, DNP Work Phone: [facility] 08-06-2023 09:01-0500 Systolic blood pressure 153 mm[Hg] Kelley Meraz APRN.CNP, DNP Work Phone: [facility] 07-04-2023 00:20-0500 Body temperature 98.1 [degF] No [facility] 07-04-2023 00:20-0500 Diastolic blood pressure 89 mm[Hg] No [facility] 07-04-2023 00:20-0500 Heart rate 98 /min No [facility] 07-04-2023 00:20-0500 Respiratory rate 16 /min No [facility] 07-04-2023 00:20-0500 SaO2% (BldA) [Mass fraction] 96 % No [facility] 07-04-2023 00:20-0500 Systolic blood pressure 143 mm[Hg] No [facility] 07-03-2023 22:57-0500 Body height 187.96 cm No [facility] 07-03-2023 22:57-0500 Body mass index (BMI) [Ratio] 45.6 kg/m2 No [facility] 07-03-2023 22:57-0500 Body weight 161.28 kg No [facility] 06-28-2023 16:27-0500 Diastolic Blood Pressure Non-Invasive 93 mm[Hg] DR LEDY REESE MD [facility] 06-28-2023 16:27-0500 Heart rate 92 /min DR LEDY REESE MD [facility] 06-28-2023 16:27-0500 Respiratory rate 18 /min DR LEDY REESE MD [facility] 06-28-2023 16:27-0500 Systolic Blood Pressure Non-Invasive 133 mm[Hg] DR LEDY REESE MD [facility] 06-28-2023 14:04-0500 Blood Pressure Cuff Size DR LEDY REESE MD [facility] 06-28-2023 14:04-[address] LEDY REESE MD [facility] 06-28-2023 14:04-[address] LEDY REESE MD [facility] 06-28-2023 14:04-0500 Body height [address] LEDY REESE MD [facility] 06-28-2023 14:04-0500 Body temperature 97.7 [degF] DR LEDY REESE MD [facility] 06-28-2023 14:04-0500 Body weight 136.[address] LEDY REESE MD [facility] 06-28-2023 14:04-0500 Diastolic Blood Pressure Non-Invasive 89 mm[Hg] DR LEDY REESE MD [facility] 06-28-2023 14:04-0500 Heart rate 108 /min DR LEDY REESE MD [facility] 06-28-2023 14:04-0500 Respiratory rate 22 /min DR LEDY REESE MD [facility] 06-28-2023 14:04-0500 Systolic Blood Pressure Non-Invasive 141 mm[Hg] DR LEDY REESE MD [facility] 06-12-2023 09:46-0500 Body mass index (BMI) [Ratio] 44.5 kg/m2 No [facility] 06-12-2023 09:46-0500 Body temperature 97.1 [degF] No [facility] 06-12-2023 09:46-0500 Body weight 157.39 kg No [facility] 06-12-2023 09:46-0500 Diastolic blood pressure 91 mm[Hg] No [facility] 06-12-2023 09:46-0500 Heart rate 79 /min No [facility] 06-12-2023 09:46-0500 Respiratory rate 18 /min No [facility] 06-12-2023 09:46-0500 SaO2% (BldA) [Mass fraction] 100 % No [facility] 06-12-2023 09:46-0500 Systolic blood pressure 130 mm[Hg] No [facility] 06-08-2023 19:34-0500 Diastolic Blood Pressure Non-Invasive 85 mm[Hg] DR PAUL DOBSON DO [facility] 06-08-2023 19:34-0500 Heart rate 87 /min DR PAUL DOBSON DO [facility] 06-08-2023 19:34-0500 Respiratory rate 18 /min DR PAUL DOBSON DO [facility] 06-08-2023 19:34-0500 Systolic Blood Pressure Non-Invasive 146 mm[Hg] DR PAUL DOBSON DO [facility] 06-08-2023 17:51-0500 Blood Pressure Cuff Size DR PAUL DOBSON DO [facility] 06-08-2023 17:51-[address] PAUL DOBSON DO [facility] 06-08-2023 17:51-[address] PAUL DOBSON DO [facility] 06-08-2023 17:51-0500 Body temperature 98.78 [degF] DR PAUL DOBSON DO [facility] 06-08-2023 17:51-0500 Diastolic Blood Pressure Non-Invasive 80 mm[Hg] DR PAUL DOBSON DO [facility] 06-08-2023 17:51-0500 Heart rate 96 /min DR PAUL DOBSON DO [facility] 06-08-2023 17:51-0500 Respiratory rate 18 /min DR PAUL DOBSON DO [facility] 06-08-2023 17:51-0500 Systolic Blood Pressure Non-Invasive 113 mm[Hg] DR PAUL DOBSON DO [facility] 06-01-2023 01:12-0500 Body height 185.42 cm [facility] 06-01-2023 01:12-0500 Body mass index (BMI) [Ratio] 46.3 kg/m2 [facility] 06-01-2023 01:12-0500 Body temperature 98.4 [degF] [facility] 06-01-2023 01:12-0500 Body weight 159.4 kg [facility] 06-01-2023 01:12-0500 Diastolic blood pressure 96 mm[Hg] [facility] 06-01-2023 01:12-0500 Heart rate 96 /min [facility] 06-01-2023 01:12-0500 Respiratory rate 20 /min [facility] 06-01-2023 01:12-0500 SaO2% (BldA) [Mass fraction] 99 % [facility] 06-01-2023 01:12-0500 Systolic blood pressure 157 mm[Hg] [facility] 05-16-2023 22:40-0500 Diastolic Blood Pressure Non-Invasive 80 mm[Hg] TOI MARMOLEJO DO [facility] 05-16-2023 22:40-0500 Heart rate 94 /min TOI REICHFIELD DO [facility] 05-16-2023 22:40-0500 Respiratory rate 18 /min TOI REICHFIELD DO [facility] 05-16-2023 22:40-0500 Systolic Blood Pressure Non-Invasive 132 mm[Hg] TOI REICHFIELD DO [facility] 05-16-2023 21:30-0500 Heart rate 98 /min TOI REICHFIELD DO [facility] 05-16-2023 21:30-0500 Respiratory rate 16 /min TOI REICHFIELD DO [facility] 05-16-2023 21:20-0500 Reason For Taking VItal Signs TOI REICHFIELD DO [facility] 05-16-2023 20:06-0500 Body height 188 cm TOI REICHFIELD DO [facility] 05-16-2023 20:06-0500 Body temperature 98.42 [degF] TOI REICHFIELD DO [facility] 05-16-2023 20:06-0500 Body weight 134.1 kg TOI REICHFIELD DO [facility] 05-16-2023 20:06-0500 Diastolic Blood Pressure Non-Invasive 85 mm[Hg] TOI REICHFIELD DO [facility] 05-16-2023 20:06-0500 Heart rate 98 /min TOI REICHFIELD DO [facility] 05-16-2023 20:06-0500 Respiratory rate 18 /min TOI REICHFIELD DO [facility] 05-16-2023 20:06-0500 Systolic Blood Pressure Non-Invasive 138 mm[Hg] TOI REICHFIELD DO [facility] 02-12-2023 20:36-0400 Diastolic Blood Pressure Non-Invasive 90 1 TOI REICHFIELD DO [facility] 02-12-2023 20:36-0400 Heart rate 77 /min TOI REICHFIELD DO [facility] 02-12-2023 20:36-0400 Reason For Taking VItal Signs TOI REICHFIELD DO [facility] 02-12-2023 20:36-0400 Respiratory rate 20 /min TOI REICHFIELD DO [facility] 02-12-2023 20:36-0400 Systolic Blood Pressure Non-Invasive 130 1 TOI REICHFIELD DO [facility] 02-12-2023 19:10-0400 Diastolic Blood Pressure Non-Invasive 92 1 TOI REICHFIELD DO [facility] 02-12-2023 19:10-0400 Heart rate 75 /min TOI REICHFIELD DO [facility] 02-12-2023 19:10-0400 Reason For Taking VItal Signs TOI REICHFIELD DO [facility] 02-12-2023 19:10-0400 Respiratory rate 18 /min TOI REICHFIELD DO [facility] 02-12-2023 19:10-0400 Systolic Blood Pressure Non-Invasive 129 1 TOI REICHFIELD DO [facility] 02-12-2023 18:15-0400 Diastolic Blood Pressure Non-Invasive 88 1 TOI REICHFIELD DO [facility] 02-12-2023 18:15-0400 Heart rate 88 /min TOI REICHFIELD DO [facility] 02-12-2023 18:15-0400 Reason For Taking VItal Signs TOI REICHFIELD DO [facility] 02-12-2023 18:15-0400 Respiratory rate 20 /min TOI REICHFIELD DO [facility] 02-12-2023 18:15-0400 Systolic Blood Pressure Non-Invasive 137 1 TOI REICHFIELD DO [facility] 02-12-2023 17:24-0400 Body temperature 98.24 [degF] TOI REICHFIELD DO [facility] 02-12-2023 17:24-0400 Body weight 149.9 kg TOI REICHFIELD DO [facility] 02-12-2023 17:24-0400 Heart rate 100 /min TOI REICHFIELD DO [facility] 10-28-2022 11:57-0400 Blood Pressure Cuff Size ROSHNI SAUERARZENTRAUB PA-C [facility] 10-28-2022 11:57-0400 Blood Pressure Location ROSHNI SCHWARZENTRAUB PA-C [facility] 10-28-2022 11:57-0400 Blood Pressure Method ROSHNI SCHWARZENTRAUB PA-C [facility] 10-28-2022 11:57-0400 Body height 188 cm ROSHNI SCHWARZENTRA UB PA-C [facility] 10-28-2022 11:57-0400 Body temperature 97.88 [degF] ROSHNI SCHWARZENTRA UB PA-C [facility] 10-28-2022 11:57-0400 Body weight 134.1 kg ROSHNI SCHWARZENTRA UB PA-C [facility] 10-28-2022 11:57-0400 Body weight 37.94 kg/m2 ROSHNI SCHWARZENTRA UB PA-C [facility] 10-28-2022 11:57-0400 Diastolic Blood Pressure Non-Invasive 87 1 ROSHNI SCHWARZENTRAUB PA-C [facility] 10-28-2022 11:57-0400 Heart rate 111 /min [place] SCHWARZENTRA UB PA-C [facility] 10-28-2022 11:57-0400 Respiratory rate 18 /min [place] CRISTIANEARZENTRA UB PA-C [facility] 10-28-2022 11:57-0400 Systolic Blood Pressure Non-Invasive 132 1 ROSHNI SCHWARZENTRAUB PA-C [facility] 10-28-2022 01:45-0400 Body temperature 98.96 [degF] YARA HENSON MD [facility] 10-28-2022 01:45-0400 Diastolic Blood Pressure Non-Invasive 96 1 YARA HENSON MD [facility] 10-28-2022 01:45-0400 Heart rate 98 /min YARA HENSON MD [facility] 10-28-2022 01:45-0400 Respiratory rate 20 /min YARA HENSON MD [facility] 10-28-2022 01:45-0400 Systolic Blood Pressure Non-Invasive 143 1 YARA HENSON MD [facility] 10-21-2022 08:44-0400 Blood Pressure Cuff Size AVANI MCMULLENERS SOCIAL WORK CASE MANAGER-CURTAIN MENDER [facility] 10-21-2022 08:44-0400 Blood Pressure Location AVANI BATERS SOCIAL WORK CASE MANAGER-CURTAIN MENDER [facility] 10-21-2022 08:44-0400 Blood Pressure Method AVANI KEMIERS SOCIAL WORK CASE MANAGER-CURTAIN MENDER [facility] 10-21-2022 08:44-0400 Body height 188 cm AVANI BATERS SOCIAL WORK CASE MANAGER-CURTAIN MENDER [facility] 10-21-2022 08:44-0400 Body temperature 98.42 [degF] AVANI KEMIERS SOCIAL WORK CASE MANAGER-CURTAIN MENDER [facility] 10-21-2022 08:44-0400 Body weight 134.1 kg AVANI KEMIERS SOCIAL WORK CASE MANAGER-CURTAIN MENDER [facility] 10-21-2022 08:44-0400 Body weight 37.94 kg/m2 AVANI BATERS SOCIAL WORK CASE MANAGER-CURTAIN MENDER [facility] 10-21-2022 08:44-0400 Diastolic Blood Pressure Non-Invasive 93 1 AVANI BATERS SOCIAL WORK CASE MANAGER-CURTAIN MENDER [facility] 10-21-2022 08:44-0400 Heart rate 88 /min AVANI BATERS SOCIAL WORK CASE MANAGER-CURTAIN MENDER [facility] 10-21-2022 08:44-0400 Respiratory rate 18 /min AVANI BATERS SOCIAL WORK CASE MANAGER-CURTAIN MENDER [facility] 10-21-2022 08:44-0400 Systolic Blood Pressure Non-Invasive 152 1 AVANILISA MCMULLENERS SOCIAL WORK CASE MANAGER-CURTAIN MENDER [facility] 09-12-2022 13:08-0400 Body height 188 cm ROSHNI SAUERARapp2you UB PA-C [facility] 09-12-2022 13:08-0400 Body temperature 98.06 [degF] ROSHNI SCHWARZENTRA UB PA-C [facility] 09-12-2022 13:08-0400 Body weight 131.8 kg ROSHNI SCHWARZENTRA UB PA-C [facility] 09-12-2022 13:08-0400 Body weight 37.29 kg/m2 ROSHNI SCHWARapp2you UB PA-C [facility] 09-12-2022 13:08-0400 Diastolic Blood Pressure Non-Invasive 95 1 ROSHNI [employer] PA-C [facility] 09-12-2022 13:08-0400 Heart rate 90 /min [place] [employer] UB PA-C [facility] 09-12-2022 13:08-0400 Respiratory rate 18 /min [place] [employer] UB PA-C [facility] 09-12-2022 13:08-0400 Systolic Blood Pressure Non-Invasive 148 1 ROSHNI SCHWARInktdTRAUB PA-C [facility] 09-05-2022 10:00-0400 Blood Pressure Cuff Size AVANI BATERS SOCIAL WORK CASE MANAGER-CURTAIN MENDER [facility] 09-05-2022 10:00-0400 Blood Pressure Location AVANI BATERS SOCIAL WORK CASE MANAGER-CURTAIN MENDER [facility] 09-05-2022 10:00-0400 Blood Pressure Method AVANI BATERS SOCIAL WORK CASE MANAGER-CURTAIN MENDER [facility] 09-05-2022 10:00-0400 Body height 188 cm AVANI BATERS SOCIAL WORK CASE MANAGER-CURTAIN MENDER [facility] 09-05-2022 10:00-0400 Body temperature 98.6 [degF] AVANI CANTOR SOCIAL WORK CASE MANAGER-CURTAIN MENDER [facility] 09-05-2022 10:00-0400 Body weight 135 kg AVANI CANTOR SOCIAL WORK CASE MANAGER-CURTAIN MENDER [facility] 09-05-2022 10:00-0400 Body weight 38.2 kg/m2 AVANI CANTOR SOCIAL WORK CASE MANAGER-CURTAIN MENDER [facility] 09-05-2022 10:00-0400 Diastolic Blood Pressure Non-Invasive 91 1 AVANI CANTOR APRN-CURTAIN MENDER [facility] 09-05-2022 10:00-0400 Heart rate 88 /min AVANI CANTOR APRN-CURTAIN MENDER [facility] 09-05-2022 10:00-0400 Respiratory rate 18 /min AVANI CANTOR APRN-CURTAIN MENDER [facility] 09-05-2022 10:00-0400 Systolic Blood Pressure Non-Invasive 119 1 AVANI CANTOR APRNESCAPESwithYOU [facility] 08-28-2022 21:45-0400 Diastolic Blood Pressure Non-Invasive 84 1 ANJEL FRIASObserveIT [facility] 08-28-2022 21:45-0400 Heart rate 86 /min ANJEL PEÑA DO [facility] 08-28-2022 21:45-0400 Respiratory rate 18 /min ANJEL FRIAST [facility] 08-28-2022 21:45-0400 Systolic Blood Pressure Non-Invasive 136 1 ANJEL FRIAST DO [facility] 08-28-2022 19:06-0400 Body temperature 97.88 [degF] ANJEL FRIAST DO [facility] 08-28-2022 19:06-0400 Body weight 136.4 kg ANJEL [employer] [facility] 08-28-2022 19:06-0400 Diastolic Blood Pressure Non-Invasive 84 1 ANJEL [employer] [facility] 08-28-2022 19:06-0400 Heart rate 100 /min ANJEL [employer] [facility] 08-28-2022 19:06-0400 Respiratory rate 20 /min ANJEL [employer] [facility] 08-28-2022 19:06-0400 Systolic Blood Pressure Non-Invasive 141 1 ANJEL [facility] 08-18-2022 15:50-0500 Diastolic Blood Pressure Non-Invasive 80 1 ANJEL Private Practice [facility] 08-18-2022 15:50-0500 Heart rate 81 /min ANJEL [facility] 08-18-2022 15:50-0500 Reason For Taking VItal Signs ANJEL Private Practice [facility] 08-18-2022 15:50-0500 Respiratory rate 16 /min ANJEL [facility] 08-18-2022 15:50-0500 Systolic Blood Pressure Non-Invasive 142 1 ANJEL Private Practice [facility] 08-18-2022 14:01-0500 Diastolic Blood Pressure Non-Invasive 89 1 ANJEL Private Practice [facility] 08-18-2022 14:01-0500 Systolic Blood Pressure Non-Invasive 142 1 ANJEL Private Practice [facility] 08-18-2022 13:55-0500 Body temperature 97.88 [degF] ANJEL [employer] [facility] 08-18-2022 13:55-0500 Diastolic Blood Pressure Non-Invasive 86 1 ANJEL [employer] [facility] 08-18-2022 13:55-0500 Heart rate 87 /min ANJEL [employer] [facility] [facility] 08-18-2022 13:55-0500 Respiratory rate 12 /min ANJEL [employer] [facility] 08-18-2022 13:55-0500 Systolic Blood Pressure Non-Invasive 161 1 ANJEL [employer] [facility] 08-18-2022 11:32-0500 Body temperature 98.42 [degF] ANJEL [facility] 08-18-2022 11:32-0500 Body weight 153.5 kg ANJEL [employer] [facility] 08-18-2022 11:32-0500 Heart rate 96 /min ANJEL [employer] [facility] 08-18-2022 11:32-0500 Respiratory rate 18 /min ANJEL [employer] [facility] 07-22-2022 13:54-0500 Diastolic Blood Pressure Non-Invasive 83 1 BLANCO SHAW MD [facility] 07-22-2022 13:54-0500 Heart rate 86 /min BLANCO SHAW MD [facility] 07-22-2022 13:54-0500 Respiratory rate 16 /min BLANCO SHAW MD [facility] 07-22-2022 13:54-0500 Systolic Blood Pressure Non-Invasive 135 1 BLANCO SHAW MD [facility] 07-22-2022 12:30-0500 Diastolic Blood Pressure Non-Invasive 89 1 BLANCO SHAW MD [facility] 07-22-2022 12:30-0500 Heart rate 91 /min BLANCO SHAW MD [facility] 07-22-2022 12:30-0500 Respiratory rate 16 /min BLANCO SHAW MD [facility] 07-22-2022 12:30-0500 Systolic Blood Pressure Non-Invasive 136 1 BLANCO SHAW MD [facility] 07-22-2022 11:30-0500 Diastolic Blood Pressure Non-Invasive 84 1 BLANCO SHAW MD [facility] 07-22-2022 11:30-0500 Heart rate 100 /min BLANCO SHAW MD [facility] 07-22-2022 11:30-0500 Respiratory rate 20 /min BLANCO SHAW MD [facility] 07-22-2022 11:30-0500 Systolic Blood Pressure Non-Invasive 142 1 BLANCO SHAW MD [facility] 07-22-2022 10:12-0500 Body height 188 cm BLANCO SHAW MD [facility] 07-22-2022 10:12-0500 Body temperature 98.96 [degF] BLANCO SHAW MD [facility] 07-22-2022 10:12-0500 Body weight 132 kg BLANCO SHAW MD [facility] 07-18-2022 14:20-0500 Diastolic Blood Pressure Non-Invasive 95 1 AARON DUQUE MD [facility] 07-18-2022 14:20-0500 Heart rate 99 /min AARON DUQUE MD [facility] 07-18-2022 14:20-0500 Respiratory rate 16 /min AARON DUQUE MD [facility] 07-18-2022 14:20-0500 Systolic Blood Pressure Non-Invasive 130 1 AARON DUQUE MD [facility] 07-18-2022 13:50-0500 Diastolic Blood Pressure Non-Invasive 88 1 AARON UDQUE MD [facility] 07-18-2022 13:50-0500 Heart rate 105 /min AARON DUQUE MD [facility] 07-18-2022 13:50-0500 Respiratory rate 16 /min AARON DUQUE MD [facility] 07-18-2022 13:50-0500 Systolic Blood Pressure Non-Invasive 137 1 AARON DUQUE MD [facility] 07-18-2022 13:20-0500 Diastolic Blood Pressure Non-Invasive 77 1 AARON DUQUE MD [facility] 07-18-2022 13:20-0500 Heart rate 104 /min AARON DUQUE MD [facility] 07-18-2022 13:20-0500 Respiratory rate 16 /min AARON DUQUE MD [facility] 07-18-2022 13:20-0500 Systolic Blood Pressure Non-Invasive 144 1 AARON DUQUE MD [facility] 07-18-2022 13:15-0500 Heart rate 99 /min AARON DUQUE MD [facility] 07-18-2022 13:00-0500 Heart rate 102 /min AARON DUQUE MD [facility] 07-18-2022 11:28-0500 Body temperature 97.88 [degF] AARON DUQUE MD [facility] 07-18-2022 11:25-0500 Respiratory Rate - Anes 0 br/min AARON DUQUE MD [facility] 07-18-2022 11:20-0500 Respiratory Rate - Anes 0 br/min AARON DUQUE MD [facility] 07-18-2022 11:15-0500 Respiratory Rate - Anes 10 br/min AARON DUQUE MD [facility] 07-18-2022 06:48-0500 Body height 188 cm AARON DUQUE MD [facility] 07-18-2022 06:48-0500 Body temperature 98.96 [degF] AARON DUQUE MD [facility] 07-18-2022 06:48-0500 Body weight 134 kg AARON DUQUE MD [facility] 07-18-2022 06:48-0500 Heart rate 99 /min AARON DUQUE MD [facility] 07-15-2022 01:50-0500 Diastolic Blood Pressure Non-Invasive 79 1 DAVONTE ONEILL MD [facility] 07-15-2022 01:50-0500 Heart rate 93 /min DAVONTE LYREN-SONDLES M D [facility] 07-15-2022 01:50-0500 Respiratory rate 15 /min DAVONTE LYREN-SONDLES M D [facility] 07-15-2022 01:50-0500 Systolic Blood Pressure Non-Invasive 124 1 DAVONTE ONEILL MD [facility] 07-15-2022 00:30-0500 Body temperature 97.88 [degF] DAVONTE PEÑA-JULIENNE M D [facility] 07-15-2022 00:30-0500 Diastolic Blood Pressure Non-Invasive 91 1 DAVONTE ONEILL MD [facility] 07-15-2022 00:30-0500 Heart rate 101 /min DAVONTE LYREN-SONDLES M D [facility] 07-15-2022 00:30-0500 Respiratory rate 18 /min DAVONTE LYREN-SONDLES M D [facility] 07-15-2022 00:30-0500 Systolic Blood Pressure Non-Invasive 152 1 DAVONTE ONEILL MD [facility] 07-09-2022 13:12-0500 Blood Pressure Cuff Size AARON DUQUE MD [facility] 07-09-2022 13:12-0500 Blood Pressure Location AARON DUQUE MD [facility] 07-09-2022 13:12-0500 Blood Pressure Method AARON DUQUE MD [facility] 07-09-2022 13:12-0500 Body height 188 cm AARON DUQUE MD [facility] 07-09-2022 13:12-0500 Body weight 134.1 kg AARON DUQUE MD [facility] 07-09-2022 13:12-0500 Body weight 37.94 kg/m2 AARON DUQUE MD [facility] 07-09-2022 13:12-0500 Diastolic Blood Pressure Non-Invasive 82 1 AARON DUQUE MD [facility] 07-09-2022 13:12-0500 Heart rate 91 /min AARON DUQUE MD [facility] 07-09-2022 13:12-0500 Systolic Blood Pressure Non-Invasive 122 1 AARON DUQUE MD [facility] 06-27-2022 23:59-0500 Diastolic Blood Pressure Non-Invasive 75 1 YARA HENSON MD [facility] 06-27-2022 23:59-0500 Heart rate 85 /min YARA HENSON MD [facility] 06-27-2022 23:59-0500 Reason For Taking VItal Signs YARA HENSON MD [facility] 06-27-2022 23:59-0500 Respiratory rate 18 /min YARA HENSON MD [facility] 06-27-2022 23:59-0500 Systolic Blood Pressure Non-Invasive 130 1 YARA HENSON MD [facility] 06-27-2022 21:38-0500 Body temperature 97.52 [degF] YARA HENSON MD [facility] 06-27-2022 21:38-0500 Diastolic Blood Pressure Non-Invasive 100 1 YARA HENSON MD [facility] 06-27-2022 21:38-0500 Heart rate 105 /min YARA HENSON MD [facility] 06-27-2022 21:38-0500 Respiratory rate 24 /min YARA HENSON MD [facility] 06-27-2022 21:38-0500 Systolic Blood Pressure Non-Invasive 157 1 YARA HENSON MD [facility] 06-19-2022 19:36-0500 Body temperature 99.1 [degF] [facility] 06-19-2022 19:36-0500 Diastolic blood pressure 87 mm[Hg] [facility] 06-19-2022 19:36-0500 Heart rate 110 /min [facility] 06-19-2022 19:36-0500 Respiratory rate 18 /min [facility] 06-19-2022 19:36-0500 SaO2% (BldA) [Mass fraction] 96 % [facility] 06-19-2022 19:36-0500 Systolic blood pressure 126 mm[Hg] [facility] 06-01-2022 00:00-0500 Diastolic Blood Pressure Non-Invasive 88 1 YARA HENSON MD [facility] 06-01-2022 00:00-0500 Heart rate 85 /min YARA HENSON MD [facility] 06-01-2022 00:00-0500 Respiratory rate 16 /min YARA HENSON MD [facility] 06-01-2022 00:00-0500 Systolic Blood Pressure Non-Invasive 125 1 YARA HENSON MD [facility] 05-31-2022 21:41-0500 Body height 190.5 cm YARA HENSON MD [facility] 05-31-2022 21:41-0500 Body temperature 97.88 [degF] YARA HENSON MD [facility] 05-31-2022 21:41-0500 Body weight 127.3 kg YARA HENSON MD [facility] 05-31-2022 21:41-0500 Diastolic Blood Pressure Non-Invasive 89 1 YARA HENSON MD [facility] 05-31-2022 21:41-0500 Heart rate 90 /min YARA HENSON MD [facility] 05-31-2022 21:41-0500 Respiratory rate 18 /min YARA HENSON MD [facility] 05-31-2022 21:41-0500 Systolic Blood Pressure Non-Invasive 127 1 YARA HENSON MD [facility] 05-27-2022 18:03-0500 Body height 180.[address] ABDI AGUIRRE MD [facility] 05-27-2022 18:03-0500 Body temperature 98.96 [degF] DR ABDI AGUIRRE MD [facility] 05-27-2022 18:03-0500 Body weight 127.[address] ABDI AGUIRRE MD [facility] 05-27-2022 18:03-0500 Diastolic Blood Pressure Non-Invasive [address] ABDI AGUIRRE MD [facility] 05-27-2022 18:03-0500 Heart rate 118 /min DR ABDI AGUIRRE MD [facility] 05-27-2022 18:03-0500 Respiratory rate 20 /min DR ABDI AGUIRRE MD [facility] 05-27-2022 18:03-0500 Systolic Blood Pressure Non-Invasive [address] ABDI AGUIRRE MD [facility] 04-25-2022 17:56-0500 Diastolic blood pressure 98 mm[Hg] [employer] [facility] [employer] 04-25-2022 17:56-0500 Heart rate 90 /min [employer] [facility] [employer] 04-25-2022 17:56-0500 Respiratory rate 18 /min [employer] [facility] [employer] 04-25-2022 17:56-0500 SaO2% (BldA) [Mass fraction] 100 % [employer] [facility] [employer] 04-25-2022 17:56-0500 Systolic blood pressure 156 mm[Hg] [facility] [employer] 04-25-2022 15:04-0500 Body height 188 cm [facility] [employer] 04-25-2022 15:04-0500 Body mass index (BMI) [Ratio] 34.67 kg/m2 [facility] [employer] 04-25-2022 15:04-0500 Body temperature 97.11 [degF] [facility] [employer] 04-25-2022 15:04-0500 Body weight 122.47 kg [employer] [facility] [employer] 04-03-2022 14:31-0400 Diastolic blood pressure 90 mm[Hg] Pcp No [facility] [employer] [employer] 04-03-2022 14:31-0400 Heart rate 100 /min Pcp No [facility] [employer] [facility] [employer] 04-03-2022 14:31-0400 Respiratory rate 16 /min Pcp No [facility] [employer] 04-03-2022 14:31-0400 SaO2% (BldA) [Mass fraction] 100 % Pcp No [facility] [employer] [employer] 04-03-2022 14:31-0400 Systolic blood pressure 140 mm[Hg] Pcp No [facility] [employer] [employer] 04-03-2022 14:14-0400 Body temperature 98.2 [degF] Pcp No [facility] [facility] 03-15-2022 00:52-0400 Diastolic blood pressure 75 mm[Hg] JORGITO CANNON DO [facility] 03-15-2022 00:52-0400 Heart rate 97 /min JORGITO CANNON DO [facility] 03-15-2022 00:52-0400 Respiratory rate 16 /min JORGITO CANNON DO [facility] 03-15-2022 00:52-0400 Systolic blood pressure 121 mm[Hg] JORGITO CANNON DO [facility] 03-14-2022 22:56-0400 Body temperature 98.24 [degF] JORGITO CANNON DO [facility] 03-14-2022 22:56-0400 Diastolic blood pressure 81 mm[Hg] JORGITO CANNON DO [facility] 03-14-2022 22:56-0400 Heart rate 107 /min JORGITO CANNON DO [facility] 03-14-2022 22:56-0400 Respiratory rate 18 /min JORGITO CANNON DO [facility] 03-14-2022 22:56-0400 Systolic blood pressure 119 mm[Hg] JORGITO CANNON DO [facility] 03-08-2022 00:57-0400 Body temperature 98.29 [degF] Giles Darrion DO Work Phone: [facility] 03-08-2022 00:57-0400 Diastolic blood pressure 89 mm[Hg] Giles Darrion DO Work Phone: [facility] 03-08-2022 00:57-0400 Heart rate 100 /min Giles Darrion DO Work Phone: [facility] 03-08-2022 00:57-0400 Respiratory rate 18 /min Giles Darrion DO Work Phone: [facility] 03-08-2022 00:57-0400 SaO2% (BldA) [Mass fraction] 98 % Giles Darrion DO Work Phone: [facility] 03-08-2022 00:57-0400 Systolic blood pressure 134 mm[Hg] Giles Darrion DO Work Phone: [facility] 01-03-2022 09:42-0400 Body height 185.4 cm Ibrahima Schaefer MD Work Phone: [facility] 01-03-2022 09:42-0400 Body temperature 98.29 [degF] Ibrahima Schaefer MD Work Phone: [facility] 01-03-2022 09:42-0400 Body weight 144.7 kg Ibrahima Schaefer MD Work Phone: [facility] 01-03-2022 09:42-0400 Diastolic blood pressure 76 mm[Hg] Ibrahima Schaefer MD Work Phone: [facility] 01-03-2022 09:42-0400 Heart rate 102 /min Ibrahima Schaefer MD Work Phone: [facility] 01-03-2022 09:42-0400 Respiratory rate 18 /min Ibrahima Schaefer MD Work Phone: [facility] 01-03-2022 09:42-0400 SaO2% (BldA) [Mass fraction] 97 % Ibrahima Schaefer MD Work Phone: [facility] 01-03-2022 09:42-0400 Systolic blood pressure 124 mm[Hg] Ibrahima Schaefer MD Work Phone: [facility] 01-01-2022 20:51-0400 Diastolic blood pressure 86 mm[Hg] [facility] Work Phone: 01-01-2022 20:51-0400 Heart rate 83 /min [facility] Work Phone: 01-01-2022 20:51-0400 Respiratory rate 18 /min [facility] Work Phone: 01-01-2022 20:51-0400 SaO2% (BldA) [Mass fraction] 100 % [facility] Work Phone: 01-01-2022 20:51-0400 Systolic blood pressure 133 mm[Hg] [facility] Work Phone: 01-01-2022 17:58-0400 Body height 185.42 cm [facility] Work Phone: 01-01-2022 17:58-0400 Body mass index (BMI) [Ratio] 42.1 kg/m2 [facility] Work Phone: 01-01-2022 17:58-0400 Body temperature 98.1 [degF] [facility] Work Phone: 01-01-2022 17:58-0400 Body weight 145 kg [facility] Work Phone: 12-21-2021 22:34-0400 Diastolic blood pressure 83 mm[Hg] ANJEL [employer] [facility] 12-21-2021 22:34-0400 Heart rate 77 /min ANJEL [employer] [facility] 12-21-2021 22:34-0400 Reason For Taking VItal Signs ANJEL PEÑA [employer] [facility] 12-21-2021 22:34-0400 Respiratory rate 20 /min ANJEL [employer] [facility] 12-21-2021 22:34-0400 Systolic blood pressure 138 mm[Hg] ANJEL FRIAST [employer] [facility] 12-21-2021 21:27-0400 Diastolic blood pressure 93 mm[Hg] ANJEL FRIAST [employer] [facility] 12-21-2021 21:27-0400 Heart rate 87 /min ANJEL FRIAST DO [facility] 12-21-2021 21:27-0400 Reason For Taking VItal Signs ANJEL FROMMELT DO [facility] 12-21-2021 21:27-0400 Respiratory rate 20 /min ANJEL TIMMELT DO [facility] 12-21-2021 21:27-0400 Systolic blood pressure 144 mm[Hg] ANJEL FRIAST DO [facility] 12-21-2021 20:43-0400 Body temperature 99.14 [degF] ANJEL TIMMELT DO [facility] 12-21-2021 20:43-0400 Diastolic blood pressure 89 mm[Hg] ANJEL FRIAST DO [facility] 12-21-2021 20:43-0400 Heart rate 96 /min ANJEL FRIAST DO [facility] 12-21-2021 20:43-0400 Respiratory rate 22 /min ANJEL FRIAST DO [facility] 12-21-2021 20:43-0400 Systolic blood pressure 172 mm[Hg] ANJEL FRIAST DO [facility] 11-30-2021 20:30-0400 Diastolic blood pressure 82 mm[Hg] YARA HENSON MD [facility] 11-30-2021 20:30-0400 Heart rate 78 /min YARA HENSON MD [facility] 11-30-2021 20:30-0400 Mean blood pressure 101 mm[Hg] YARA HENSON MD [facility] 11-30-2021 20:30-0400 Respiratory rate 18 /min YARA HENSON MD [facility] 11-30-2021 20:30-0400 Systolic blood pressure 140 mm[Hg] YARA HENSON MD [facility] 11-30-2021 19:12-0400 Body temperature 98.06 [degF] YARA HENSON MD [facility] 11-30-2021 19:12-0400 Diastolic blood pressure 89 mm[Hg] YARA HENSON MD [facility] 11-30-2021 19:12-0400 Heart rate 87 /min YARA HENSON MD [facility] 11-30-2021 19:12-0400 Respiratory rate 18 /min YARA HENSON MD [facility] 11-30-2021 19:12-0400 Systolic blood pressure 148 mm[Hg] YARA HENSON MD [facility] 11-14-2021 13:10-0400 Body height 185.4 cm AARON DUQUE MD [facility] 11-14-2021 13:10-0400 Body weight 140.9 kg AARON DUQUE MD [facility] 11-14-2021 13:10-0400 Body weight 40.99 kg/m2 AARON DUQUE MD [facility] 11-14-2021 13:10-0400 diastolic 74 mm[Hg] AARON DUQUE MD [facility] 11-14-2021 13:10-0400 Heart rate 103 /min AARON DUQUE MD [facility] 11-14-2021 13:10-0400 systolic 128 mm[Hg] AARON DUQUE MD [facility] 10-06-2021 14:52-0400 Body temperature 98.96 [degF] ASHLYN BLISS MD [facility] 10-06-2021 14:52-0400 Diastolic blood pressure 89 mm[Hg] ASHLYN BLISS MD [facility] 10-06-2021 14:52-0400 Heart rate 112 /min ASHLYN BLISS MD [facility] 10-06-2021 14:52-0400 Respiratory rate 18 /min ASHLYN BLISS MD [facility] 10-06-2021 14:52-0400 Systolic blood pressure 148 mm[Hg] ASHLYN BLISS MD [facility] Encounters Encounter Date Encounter Type Care Provider Facility Start: 12-06-2024 End: 12-07-2024 Emergency department patient visit Dr. Cristian Barrera DO Work Phone: -Emergency Department Work Phone: Start: 09-19-2024 End: 09-19-2024 Emergency department patient visit Dr. Cristian Barrera DO Work Phone: -Emergency Department Work Phone: Start: 09-08-2024 End: 09-08-2024 ambulatory VIOLA STARKEY APRN-CURTAIN MENDER Facility:[facility] Start: 09-07-2024 End: 09-08-2024 Emergency department patient visit SHANIKA TIRADO DO Facility:[facility] Start: 08-24-2024 End: 08-24-2024 Emergency department patient visit No Primary Care Physician -Emergency Department Work Phone: Start: 08-13-2024 End: 08-13-2024 Office outpatient new 45 minutes Stephon Benavides MD Work Phone: [facility] Comment on above: History of abdominal hernia Start: 06-29-2024 End: 06-29-2024 Subsequent hospital visit by physician Rad External Film [facility] [employer] [employer] Comment on above: Arrived Start: 06-29-2024 End: 06-29-2024 Office outpatient new 45 minutes Jonathan Gonzalez MD Work Phone: [facility] Comment on above: Periumbilical abdomi nal pain (Primary Dx); History of abdominal hernia Start: 05-16-2024 End: 05-16-2024 Emergency department patient visit RADHA YI DO [facility] Start: 02-24-2024 End: 02-25-2024 Emergency department patient visit No Primary Care Physician Facility:[facility] Start: 10-10-2023 Telephone encounter Juliocesar Borrero MD, PhD Work Phone: [facility] [place] [facility] Comment on above: Care Coordination Left lateral abdomin al pain (Primary Dx) Start: 10-07-2023 End: 10-07-2023 Evaluation and management of inpatient JESE RICHARDSON Facility:[facility] Start: 10-07-2023 Orders Only Jese Richardson MD Work Phone: General Surgery Comment on above: Left lower quadrant abdominal pain (Primary Dx) Start: 09-16-2023 Encounter for other preprocedural examination JESE RICHARDSON [facility] Start: 09-16-2023 End: 09-17-2023 ambulatory JESE DARBY JORDANPAULCesar Facility:[facility] Start: 09-16-2023 Encounter for other preprocedural examination JESE RICHARDSON [facility] Start: 09-16-2023 End: 09-17-2023 ambulatory JESE DARBY DYLAN Facility:[facility] Start: 09-16-2023 End: 09-16-2023 PAT Pac Main 6 Work Phone: Pre Anesthesia Comment on above: Pre-op evaluation (P rimary Dx); Post traumatic seizure disorder (HCC); Morbid obesity (HCC); Tobacco use Start: 09-16-2023 End: 09-16-2023 Preprocedural examination done Pac Main 6 Work Phone: [facility] Work Phone: Start: 09-11-2023 End: 09-11-2023 Emergency department patient visit DAVONTE ONEILL MD Facility:[facility] Start: 09-11-2023 End: 09-11-2023 Emergency department patient visit DAVONTE ONEILL MD [facility] Start: 08-27-2023 End: 08-27-2023 ambulatory VIOLA STARKEY SOCIAL WORK CASE MANAGER-CURTAIN MENDER Facility:[facility] Start: 08-27-2023 End: 08-27-2023 Minor Procedure REYES MOORE DO [facility] Start: 08-06-2023 End: 08-06-2023 ambulatory LINDA GRIFFITHS Facility:[facility] Start: 08-06-2023 End: 08-06-2023 Patient encounter procedure Kelley Meraz SOCIAL WORK CASE MANAGER.CURTAIN MENDER, DNP Work Phone: Neurology Pain Comment on above: Abdominal pain, unsp ecified abdominal location (Primary Dx) Start: 07-21-2023 ambulatory Jese Richardson MD Work Phone: [facility] Comment on above: 24 Cure (Resect ion of Mesh 2 hours los 0) Start: 07-21-2023 Preprocedural examination done Jese Richardson MD Work Phone: [facility] Start: 07-18-2023 Orders Only Linda Griffiths KIKA Work Phone: General Surgery Comment on above: Left lower quadrant abdominal pain (Primary Dx) Start: 07-07-2023 End: 07-08-2023 ambulatory JESE RICHARDSON Facility:[facility] Start: 07-03-2023 End: 07-04-2023 Emergency department patient visit No Primary Care Physician [facility] Work Phone: Start: 06-28-2023 End: 06-28-2023 Emergency department patient visit DR LEDY REESE MD Facility:[facility] Start: 06-28-2023 End: 06-28-2023 Emergency department patient visit DR LEDY REESE MD [facility] Start: 06-12-2023 End: 06-12-2023 Patient encounter procedure No Primary Care Physician [facility] Work Phone: Start: 06-08-2023 End: 06-08-2023 Emergency department patient visit PAUL DOBSON Facility:[facility] Start: 06-08-2023 End: 06-08-2023 Emergency department patient visit DR PAUL DOBSON DO [facility] Start: 06-01-2023 End: 06-01-2023 Emergency department patient visit [facility] Work Phone: Start: 05-17-2023 End: 05-18-2023 ambulatory TOI MARMOLEJO DO Facility:[facility] Start: 05-16-2023 End: 05-17-2023 Emergency department patient visit TOI MARMOLEJO DO Facility:[facility] Start: 05-16-2023 End: 05-16-2023 Emergency department patient visit TOI MARMOLEJO DO [facility] Start: 02-23-2023 End: 02-23-2023 Emergency department patient visit [facility] Start: 02-12-2023 End: 02-12-2023 Emergency department patient visit TOI MARMOLEJO DO Facility:[facility] Start: 02-12-2023 End: 02-12-2023 Emergency department patient visit TOI MARMOLEJO DO [facility] Start: 10-28-2022 End: 10-29-2022 ambulatory ROSHNI FLORES PA-C Facility:[facility] Start: 10-28-2022 End: 10-28-2022 Patient encounter procedure ROSHNI FLORES PA-C [facility] Start: 10-28-2022 End: 10-28-2022 Emergency department patient visit YAAR HENSON MD Facility:[facility] Start: 10-28-2022 End: 10-28-2022 Emergency department patient visit YARA HENSON MD [facility] Start: 10-21-2022 End: 10-22-2022 ambulatory VAANI CANTOR SOCIAL WORK CASE MANAGER-CURTAIN MENDER Facility:[facility] Start: 10-21-2022 End: 10-21-2022 Patient encounter procedure AVANI CANTOR SOCIAL WORK CASE MANAGER-CURTAIN MENDER [facility] Start: 10-20-2022 End: 10-20-2022 Emergency department patient visit DR LEDY REESE MD Facility:[facility] Start: 09-12-2022 End: 09-12-2022 Patient encounter procedure ROSHNI PITTMANRAUDEL PA-Marielos [facility] Start: 09-05-2022 End: 09-05-2022 Patient encounter procedure AVANI CANTOR SOCIAL WORK CASE MANAGER-CURTAIN MENDER [facility] Start: 08-28-2022 End: 08-28-2022 [facility] Start: 08-18-2022 End: 08-18-2022 Emergency department patient visit [facility] Start: 07-22-2022 End: 07-22-2022 Emergency department patient visit BLANCO SHAW MD [facility] Start: 07-18-2022 End: 07-18-2022 SAME DAY STAY AARON DUQUE MD [facility] Start: 07-15-2022 End: 07-15-2022 Emergency department patient visit DAVONTE ONEILL MD [facility] Start: 07-09-2022 End: 07-09-2022 Admission to establishment AARON DUQUE MD [facility] Start: 06-27-2022 End: 06-28-2022 Emergency department patient visit YRAA HENSON MD [facility] Start: 06-19-2022 End: 06-20-2022 Emergency department patient visit [facility] ED Comment on above: Seizure (CMS/HCC) (H CC) (Primary Dx) Start: 06-09-2022 End: 06-10-2022 Emergency department patient visit PHYSICIAN [facility] Start: 06-06-2022 End: 06-06-2022 Emergency department patient visit PHYSICIAN NO [facility] Start: 05-31-2022 End: 06-01-2022 Emergency department patient visit YARA HENSON MD [facility] Start: 05-27-2022 End: 05-27-2022 Emergency department patient visit DR ABDI AGUIRRE MD [facility] Start: 05-22-2022 End: 05-23-2022 Emergency department patient visit PATRICK PLATA [facility] Start: 04-25-2022 End: 04-25-2022 Emergency department patient visit PCP NO [facility] Start: 04-25-2022 End: 04-25-2022 Emergency department patient visit [facility] Emergency Department Comment on above: Acute pain of right shoulder (Primary Dx); Strain of right shoulder, initial encounter Start: 04-03-2022 End: 04-03-2022 Emergency department patient visit PCP NO [facility] Start: 04-03-2022 End: 04-03-2022 Emergency department patient visit Pcp No [facility] Emergency Department Comment on above: Injury of right wris t, initial encounter (Primary Dx) Start: 03-14-2022 End: 03-15-2022 Emergency department patient visit JORGITO CANNON DO [facility] Start: 03-08-2022 End: 03-08-2022 Emergency department patient visit UNKNOWN PROVIDER [facility] Start: 03-08-2022 End: 03-08-2022 Emergency department patient visit Giles Maier DO Work Phone: [facility] Comment on above: Closed head injury, initial encounter (Primary Dx) Start: 01-03-2022 End: 01-03-2022 Patient encounter procedure Ibrahima Schaefer MD Work Phone: General Surgery Comment on above: Hematoma (Primary Dx ); Incisional hernia, without obstruction or gangrene Start: 01-01-2022 End: 01-01-2022 Emergency department [facility] Start: 12-21-2021 End: 12-21-2021 Emergency department patient visit ANJEL PEÑA DO [facility] Start: 11-30-2021 End: 11-30-2021 Emergency department patient visit YARA HENSON MD [facility] Start: 11-14-2021 End: 11-14-2021 Admission to establishment AARON DUQUE MD [facility] Start: 10-26-2021 End: 10-26-2021 Patient encounter procedure TRU 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 Cristian Barrera DO Work Phone: Start: 09-19-2024 Plain X-ray of clavicle Dr. [...] Speci men Type: BLOOD SPECIMEN [facility] Address: [address] [place] [address] Performed By: #### T [id number] #### [facility] CLIA [id number] [address] [place], [place] [address] [place] Start: 08-27-2023 Colonoscopy REYES MOORE DO Start: 06-01-2023 CT of abdomen and pe lvis without contrast Start: 07-18-2022 Laparoscopic repair of recurrent umbilical hernia using synthetic mesh ANJEL PEÑA DO Comment on above: OPEN REPAIR OF RECUR RENT PERIUMBILICAL HERNIA WITH ANTERIOR COMPONENT SEPARATION WITH ONLAY MESH REPAIR Start: 07-18-2022 Umbilical hernia (disorder) AARON DUQUE MD Comment on above: open repair of recur rent periumbilical hernia with component separation Start: 06-19-2022 Basic metabolic pane l calcium total Kyree REYES Work Phone: Start: 06-19-2022 Drug assay carbamaze pine total Kyree Christie PA Work Phone: Start: 04-25-2022 Radex shoulder compl [...] History of repair of umbilical hernia TRU TOUSSAINT SOCIAL WORK CASE MANAGER-CURTAIN MENDER Start: 08-29-2017 Adult depression scr eening assessment Ibrahima Schaefer MD Work Phone: Start: 11-12-2016 Lipid 1996 panel - S luigi or Plasma Linda Griffiths SOCIAL WORK CASE MANAGER.CURTAIN MENDER Work Phone: Appendectomy ASHLYN Segura Drain, device (physi mary alice object) AVANI CANTOR SOCIAL WORK CASE MANAGER-CURTAIN MENDER Comment on above: placed and removed x 3 Plan of Treatment Date Care Activity Detail Author Start: 2029 Zoster Vaccines (1 of 2) Zoste r Vaccines (1 of 2) [facility] Start: 12-07-2024 [facility] Start: 08-24-2024 [facility] Start: 02-15-2024 COVID-19 Vaccine ( season) COVID-19 Vaccine ( season) [facility] Start: 02-15-2024 Influenza vaccination C [facility] Start: 07-21-2023 End: 07-21-2024 aPTT in Platelet poor plasma by Coagulation assay ACTIVATED PTT Lab Routine Preoperative examination Infected hernioplasty mesh, sequela Expected: 07/21/2023, Expires: 07/21/2024 [facility] Work Phone: Comment on above: Expected: 07/21/2023 , Expires: 07/21/2024 Start: 07-21-2023 End: 07-21-2024 CBC W Auto Differential panel - Blood CBC + DIFF Lab Routine Preoperative examination Infected hernioplasty mesh, sequela Expected: 07/21/2023, Expires: 07/21/2024 [facility] Work Phone: Comment on above: Expected: 07/21/2023 , Expires: 07/21/2024 Start: 07-21-2023 End: 07-21-2024 Comprehensive metabolic 2000 panel - Serum or Plasma COMP METABOLIC PANEL Lab Routine Preoperative examination Infected hernioplasty mesh, sequela Expected: 07/21/2023, Expires: 07/21/2024 [facility] Work Phone: Comment on above: Expected: 07/21/2023 , Expires: 07/21/2024 Start: 07-21-2023 End: 07-21-2024 PT panel - Platelet poor plasma by Coagulation assay PROTHROMBIN TIME/PT Lab Routine Preoperative examination Infected hernioplasty mesh, sequela Expected: 07/21/2023, Expires: 07/21/2024 [facility] Work Phone: Comment on above: Expected: 07/21/2023 , Expires: 07/21/2024 Start: 07-21-2023 End: 07-21-2024 TYPE AND SCREEN,30 DAY TYPE AND SCREEN,30 DAY Blood Bank Routine Preoperative examination Infected hernioplasty mesh, sequela Expected: 07/21/2023 (Approximate), Expires: 07/21/2024 [facility] Work Phone: Comment on above: Expected: 07/21/2023 (Approximate), Expires: 07/21/2024 Start: 07-03-2023 [facility] Start: 06-16-2023 Depression Assessment Depression Ass essment [facility] Start: 06-12-2023 Patient referral [facility] Work Phone: Start: 06-01-2023 [facility] Start: 02-14-2023 Covid-19 Vaccine ( season) Covid-19 Vaccine ( season) [facility] Start: 02-14-2023 Influenza vaccination Influenza Vacc ine (#1) [facility] Start: 02-14-2022 Influenza vaccination C [facility] Start: 01-14-2022 Influenza vaccination Flu vaccine (# 1) [facility] Start: 01-03-2022 End: 03-05-2022 Bacteria identified in Body fluid by Culture [facility] Work Phone: Comment on above: Expected: 01/03/2022 , Expires: 03/05/2022 Start: 01-01-2022 Application of abdom inal corset [facility] Work Phone: Start: 11-12-2021 Lipid panel Lipid Screening [facility] Start: 11-12-2021 LIPID SCREEN LIPID SCREEN [facility] Start: 06-25-2021 COVID-19 Vaccine (4 - Booster for Moderna series) COVID-19 Vaccine (4 - Booster for Moderna series) [facility] Start: 2019 Lipid panel Lipids [facility] Start: 08-29-2018 Adult depression screening assessment DEPRESSION SCREENING [facility] Start: 2014 Diabetes screen Diabetes screen [facility] Start: 2001 DTaP/Tdap/Td Vaccine s (1 - Tdap) DTaP/Tdap/Td Vaccines (1 - Tdap) [facility] Start: 1998 DTaP/Tdap/Td vaccine (1 - Tdap) DTaP/Tdap/Td vaccine (1 - Tdap) [facility] Start: 1998 DTaP/Tdap/Td Vaccine s (1 - Tdap) DTaP/Tdap/Td Vaccines (1 - Tdap) [facility] Start: 1998 Hepatitis B Vaccine (1 of 3 - 19+ 3-dose series) Hepatitis B Vaccine (1 of 3 - 19+ 3-dose series) [facility] Start: 1998 Hepatitis B Vaccines (1 of 3 - 19+ 3-dose series) Hepatitis B Vaccines (1 of 3 - 19+ 3-dose series) [facility] Start: 1998 Pneumococcal Vaccine : Pediatrics and At-Risk Adult Patients (1 of 2 - PCV) Pneumococcal Vaccine: Pediatrics and At-Risk Adult Patients (1 of 2 - PCV) [facility] Start: 1998 Urine microalbumin profile [facility] Start: 1997 Diabetes mellitus screening Diabetes Screening [facility] Start: 1997 HEPATITIS C SCREENING HEPATITIS C SC REENING [facility] Start: 1997 Hepatitis C screening [facility] [place] Start: 1997 HIV SCREENING HIV SCREENING [facility] Start: 1997 HIV screening HIV Screening [facility] Start: 1994 HIV screening HIV screen [facility] Start: 1991 Depression Screen Depression Screen [facility] Start: 1985 PNEUMOCOCCAL (1 - PCV) PNEUMOCOCCAL (1 - PCV) [facility] Start: 1985 Pneumococcal 0-64 ye ars Vaccine (1 - PCV) Pneumococcal 0-64 years Vaccine (1 - PCV) [facility] Start: 1985 Pneumococcal vaccination Pneum ococcal Vaccine (1 of 2 - PCV) [facility] Start: 1985 Pneumococcal Vaccine : Pediatrics (0 to 5 Years) and At-Risk Patients (6 to 64 Years) (1 - PCV) Pneumococcal Vaccine: Pediatrics (0 to 5 Years) and At-Risk Patients (6 to 64 Years) (1 - PCV) [facility] Start: 01-25-1980 MMR Vaccines (1 of 1 - Standard series) MMR Vaccines (1 of 1 - Standard series) [facility] Start: 1979 COVID-19 Vaccine (#1) COVID-19 Vacci ne (#1) [facility] Start: 1979 Hepatitis B Vaccine (1 of 3 - 3-dose series) Hepatitis B Vaccine (1 of 3 - 3-dose series) [facility] Start: 1979 Hepatitis B Vaccines (1 of 3 - 3-dose series) Hepatitis B Vaccines (1 of 3 - 3-dose series) [facility] Start: 1979 HIV screening HIV Screening [facility] Start: 1979 Lipid panel Lipid Panel [facility] Start: 1979 Screening for malign ant neoplasm of colon [facility] Start: 1979 Yearly Adult Physical Yearly Adult P hysical [facility] End: 07-21-2024 ECG COMPLETE ECG COMPLETE ECG Routine Preoperative examination Infected hernioplasty mesh, sequela 1 Occurrences starting 07/21/2023 until 07/21/2024 [facility] Work Phone: Comment on above: 1 Occurrences starti ng 07/21/2023 until 07/21/2024 Patient Education [facility] Work Phone: Patient referral [facility] Work Phone: REFER FOR ADMIT INTERVIEW REFER FOR ADMIT INTERVIEW Procedures Routine Preoperative examination Infected hernioplasty mesh, sequela Ordered: 07/21/2023 [facility] Work Phone: Comment on above: Ordered: 07/21/2023 SPINE INTERVENTION PROCEDURE SPINE INTERVENTION PROCEDURE Procedures Routine Left lateral abdominal pain Ordered: 10/10/2023 [facility] Work Phone: Comment on above: Ordered: 10/10/2023 [facility] Immunization Date Immunization Notes Care Provider Fa cili 04-30-2021 SARS-CoV-2 (COVID-19 ) mRNA-1273 vaccine JORGITO CANNON DO [facility] Comment on above: Result Comment: 2021: [id number] 10-05-2020 SARS-CoV-2 (COVID-19 ) mRNA-1273 vaccine JORGITO CANNON DO [facility] 09-06-2020 SARS-CoV-2 (COVID-19 ) mRNA-1273 vaccine JORGITO CANNON DO [facility] 09-09-2013 influenza, seasonal, injectable, preservative free ASHLYN BLISS MD [facility] 09-09-2013 influenza virus vaccine, unspecified formulation [facility] Payers Date Payer Category Payer Managed Care (Private) NGUYỄN YOST [employer]ACE [id number] 2024 Self-pay [id number] 2023 Unknown NGUYỄN ADRIAN HI X [id number] 2023-Present [phone] [address] [address] [place] [address] O [id number] 2023 Unknown [id number] 2022 Medicaid (Managed Care) 1.2. [id number] 2022 Medicaid [address] [facility] MEDICAID [id number] 2022-Present [phone] [address] [place] [address] Medicaid [id number] 2014 Medicaid [id number] 2014 Medicaid [id number] 1979 Unknown [id number] 2.16.840.1.463887.3.579.2. 668 1979 Unknown [id number] 2.16.840.1.349556.3.579.2. 204 1979 Unknown [id number] 2.16.840.1.396920.3.579.2. 204 1979 Unknown [id number] 2.16.840.1.790455.3.579.2. 651 1979 Unknown [id number] 2.16.840.1.012270.3.579.2. 903 1979 Unknown [id number] 2.16.840.1.257415.3.579.2. 903 1979 Unknown [id number] 2.16.840.1.396838.3.579.2. 1979 Unknown [id number] 2.16840.1.296007.3.579.2. 1979 Unknown [id number] 2.840.1.025618.3.579.2. 1979 Unknown [id number] 2.16840.1.810150.3.579.2. 1979 Unknown [id number] 2.16.840.1.210383.3.579.2. 1979 Unknown [id number] 2.16.840.1.875809.3.579.2. 1979 Unknown [id number] 2.16.840.1.178406.3.579.2. 1979 Unknown [id number] 2.16.840.1.506616.3.579.2. 1979 Unknown [id number] 2.16.840.1.105500.3.579.2. 1979 Unknown [id number] 2.16.840.1.587078.3.579.2. 1979 Unknown [id number] 2.16.840.1.892422.3.579.2. 1979 Unknown [id number] 2.16.840.1.701527.3.579.2. 627 1979 Unknown [id number] 2.16.840.1.044387.3.579.2. 627 1979 Unknown [id number] 2.16.840.1.483970.3.579.2. 627 Unknown [facility] [id number] Unknown [id number] 2.16.840.1.282070.3.579.2. 462 Unknown [id number] 2.16.840.1.534181.3.579.2. 462 Unknown [id number] 2.16.840.1.011164.3.579.2. 462 Unknown [id number] 2.16.840.1.369826.3.579.2. 462 Social History Date Type Detail Facility Start: 10-23-2016 End: 12-06-2024 Tobacco smoking status Smokes tobacco daily (finding) [facility] Sex Assigned At Sex [facility] Start: 10-19-2021 End: 08-27-2023 Tobacco smoking status Light tobacco smoker (finding) [facility] Start: 11-14-2021 End: 07-01-2022 Tobacco smoking status Heavy tobacco smoker (finding) [facility] Start: 01-01-2022 End: 06-01-2023 Tobacco smoking status [facility] Unknown if ever smoked [facility] Start: 09-23-2018 [facility]ig[facility] Start: 1980 Sex Assigned At Male [facility] Start: 10-23-2016 End: 08-13-2024 Cigarettes smoked current (pack per day) - Reported 2 [facility] Start: 10-23-2016 End: 08-13-2024 Tobacco use and exposure Smokeless tobacco non-user [facility] Start: 01-03-2022 End: 09-16-2023 Alcohol intake Current non-drinker of alcohol (finding) [facility] Start: 1980 Sex Assigned At Not on file [facility] Start: 12-24-2021 End: 06-29-2024 Exposure to SARS-CoV-2 (event) Not sure [facility] Start: 03-08-2022 Alcohol intake Ex-drinker (finding) [facility] Work Phone: History of tobacco use Cigarette Smoker [facility] Work Phone: Start: 07-07-2023 End: 08-13-2024 Tobacco use panel [facility] National Score (1-10 0), lower number is lower risk 67 [facility] Start: 06-25-2023 Gender identity Identifies as male gender (finding) [facility] Start: 06-25-2023 Sexual orientation Heterosexual (finding) [facility] Start: 09-16-2023 Tobacco Comment Currently smokes 0.5 ppd [facility] Start: 09-16-2023 Alcohol Comment rare [facility] Start: 06-29-2024 End: 08-13-2024 Alcoholic beverage intake Lifetime non-drinker (finding) [facility] Work Phone: History of tobacco use Passive smoker [facility] Work Phone: Start: 08-24-2024 End: 09-19-2024 Sex Male (finding) [facility] Medical Equipment Procedure Code Equipment Code [...] Assessment Result Facility 05-16-2024 Functional Status Independent [facility] 05-16-2024 Functional Status Standard Safet y ID band on, Allergy Band on, Call device within reach, Bed in low position, Wheels locked, Visitor at bedside, Safety level maintained [facility] 09-11-2023 Functional Status Independent [facility] 08-27-2023 Functional Status Awake, Up ad loc [facility] 08-27-2023 Functional Status Maintained, Less than 8 hours [facility] 06-28-2023 Functional Status Room check performed [facility] 06-28-[address] [facility] 06-08-2023 Functional Status Independent [facility] 06-08-2023 Functional Status Ambulation in [place], Ambulation in Room [facility] 05-16-2023 Functional Status Standard Safet y ID band on, Allergy Band on, Call device within reach, Bed in low position, Wheels locked, Upper/Half-Length side-rails up, personal items within reach, Visitor at bedside [facility] 02-12-2023 Functional Status ID band on, Allergy Band on, Call device within reach, Bed in low position, Wheels locked, Bedside Cart Locked, Visitor at bedside, Safety level maintained [facility] 02-12-2023 Functional Status [facility] 10-28-2022 Functional Status ID band on, Allergy Band on [facility] 10-28-2022 Functional Status ID band on, Allergy Band on, Call device within reach, Bed in low position, Wheels locked, Upper/Half-Length side-rails up, Phone within reach, personal items within reach, Bedside Cart Locked, Visitor at bedside [facility] 10-21-2022 Functional Status ID band on, Allergy Band on, Safety level maintained [facility] 09-12-2022 Functional Status Ambulating in zamorano [facility] 09-05-2022 Functional Status Sensory Deficits None [facility] 08-28-2022 Functional Status Standard Safet y ID band on, Call device within reach, Bed in low position, Wheels locked, Upper/Half-Length side-rails up, Bedside Cart Locked, Safety level maintained [facility] 08-18-2022 Functional Status Independent [facility] 08-18-2022 Functional Status Room check performed [facility] 07-22-2022 Functional Status Up ad loc [facility] 07-22-2022 Functional Status Standard Safet y ID band on, Allergy Band on, Call device within reach, Bed in low position, Wheels locked, Visitor at bedside [facility] 07-18-2022 Functional Status abdominal bind er on, ice on [facility] 07-18-2022 [facility] Functional Status Activity Pilloneelam contreras Independent [facility] 07-15-2022 Functional Status Standard Safet y ID band on, Allergy Band on, Call device within reach, Bed in low position, Wheels locked, Upper/Half-Length side-rails up, Phone within reach, personal items within reach, Safety level maintained [facility] 07-09-2022 Functional Status Sensory Deficits None A [facility] 06-27-2022 Functional Status Room check performed [facility] 06-27-[address] [facility] 06-01-2022 Functional Status Ambulating in zamorano, Ambulating in room, Awake [facility] 05-31-2022 Functional Status Standard Safet y ID band on, Allergy Band on, Call device within reach, Bed in low position, Wheels locked, Upper/Half-Length side-rails up, personal items within reach [facility] 05-27-2022 Functional [facility] 03-15-[facility]22 Functional Status Room check performed [facility] 03-14-2022 Functional Status [facility] 12-21-2021 Functional Status Standard Safet y ID band on, Call device within reach, Bed in low position, Wheels locked, Upper/Half-Length side-rails up, Bedside Cart Locked, Safety level maintained [facility] 12-21-2021 Functional Status [facility] 11-30-2021 Functional Status Standard Safet y ID band on, Call device within reach, Bed in low position [facility] 11-14-2021 Functional Status Sensory Deficits None A [facility] 10-06-2021 Functional Status [facility] 10-06-2021 Functional Status [facility] Mental Status Date Assessment Result Facility 05-16-2024 Mental Status Orientation Oriented x 4 [facility] 05-16-2024 Mental Status [facility] 09-11-2023 Mental Status Orientation Oriented x 4 [facility] 08-27-2023 Mental Status Oriented x 4 [facility] 08-27-2023 Mental Status [facility] 06-28-2023 Mental Status Orientation Oriented x 4 [facility] 06-28-2023 Mental Status [facility] 06-08-2023 Mental Status Orientation Oriented x 4 [facility] 06-08-2023 Mental Status [facility] 05-16-2023 Mental Status Orientation Oriented x 4 [facility] 02-12-2023 Mental Status Orientation Oriented x 4 [facility] 02-12-2023 Mental Status [facility] 10-28-2022 Mental Status Orientation Oriented x 4 [facility] 10-28-2022 Mental Status Oriented x 4 [facility] 10-21-2022 Mental Status Orientation Oriented x 4 [facility] 09-12-2022 Mental Status Orientation Oriented x 4 [facility] 09-05-2022 Mental Status Orientation Oriented x 4 [facility] 08-28-2022 Mental Status Orientation Oriented x 4 [facility] 08-18-2022 Mental Status Orientation Oriented x 4 [facility] 08-18-2022 [facility] 07-22-[facility] Mental Status Orientation Oriented x 4 [facility] 07-22-2022 Mental Status [facility] 07-18-2022 Mental Status Orientation Oriented x 4 [facility] 07-18-2022 Mental Status [facility] 07-15-2022 Mental Status Orientation Oriented x 4 [facility] 07-15-2022 Mental Status [facility] 06-28-2022 Mental Status Orientation Oriented x 4 [facility] 06-27-2022 Mental Status [facility] 06-01-2022 Mental Status Orientation Oriented x 4 [facility] 05-31-2022 Mental Status [facility] 05-27-2022 Mental Status Orientation Oriented x 4 [facility] 03-15-2022 Mental Status Orientation Oriented x 4 [facility] 03-14-2022 Mental Status [facility] 12-21-2021 Mental Status Oriented x 4 [facility] 12-21-2021 [facility] 11-30-2021 Mental Status Orientation Oriented x 4 [facility] 11-30-2021 Mental Status [facility] 10-06-2021 Mental Status [facility] 10-06-2021 Mental Status [facility] Clinical Notes 10-06-2021 to 12-07-2024 Note Date & Type Note Facility 12-07-2024 Discharge [facility] 12-06-2024 Radiology Diagnostic study note [facility] Imaging Services [id number] [facility] [place], [place] [address] Hand Min 3 Views MR#: [id number] Acct: [id number] Name: PATRICK KOROMA Rep #: [id number] : 1980 M 44 From: Viki Ba MD PCP: ERIC Anaya Status: PRE ER Study:Hand Min 3 Views Date of Exam: Exam# [id number] Ordering Dr: Curtis Choi MD PROCEDURE: HAND MIN 3 VIEWS 12/06/2024 REASON FOR EXAM: INJURY TECHNIQUE: HAND MIN 3 VIEWS COMPARISON: None FINDINGS: No fracture or traumatic malalignment. Joint spaces are predominantly maintained. Bone mineral density is subjectively normal. The soft tissues are unremarkable. RAD/Hand Min 3 Views IMPRESSION: No acute osseous abnormality of the right hand. Reading Location: [facility] CC: ERIC Starkey; Dr. Guevara Choi MD ~ Aircraft Charter Dispatcher: [facility]igned [facility] 09-19[facility] summary [facility] Radiology Diagnostic study note [facility] Imaging Services [address] [facility] [place] [address] Shoulder min 2 Views MR#: [id number] Acct: [id number] Name: PATRICK KOROMA Rep #: [id number] : 1980 M 44 From: Zuly Tena DO PCP: ERIC Anaya Status: REG ER Study:Shoulder min 2 Views Date of Exam: 09/19/24 Exam# [id number] Ordering Dr: Brian Maldonado MD PROCEDURE: SHOULDER MIN 2 VIEWS 09/19/2024 REASON FOR EXAM: TRAUMA TECHNIQUE: 4 view(s) of the right shoulder COMPARISON: None FINDINGS: Bones: No acute fracture. Joints: Normal alignment of the acromioclavicular and glenohumeral joints. Soft tissues: Soft tissues are unremarkable. Other: RAD/Shoulder min 2 Views IMPRESSION: NO ACUTE FRACTURE OR DISLOCATION. Reading Location: [facility] CC: ERIC Starkey; Dr. Brian Maldonado MD ~ Aircraft Charter Dispatcher: [facility]igned [facility] 09-19-2024 Radiology Diagnostic study note [facility] Imaging Services [address] [place] [address] Clavicle MR#: [id number] Acct: [id number] Name: PATRICK KOROMA Rep #: [id number] : 1980 M 44 From: Zuly Tena DO PCP: ERIC Anaya Status: REG ER Study:Clavicle Date of Exam: 09/19/24 Exam# [id number] Ordering Dr: Brian Maldonado MD PROCEDURE: CLAVICLE 09/19/2024 REASON FOR EXAM: TRAUMA TECHNIQUE: Two views of the right clavicle were obtained COMPARISON: None FINDINGS: Bones: No acute fracture. Joints: Joint spaces are preserved. Soft tissues: No soft tissue abnormality. RAD/Clavicle IMPRESSION: NO EVIDENCE OF CLAVICLE FRACTURE Reading Location: [place] CC: ERIC Starkey; Dr. Brian Maldonado MD ~ Aircraft Charter Dispatcher: [facility]igned [facility] 09-19-2024 Discharge summary Note Date/Time September 19, 2024 10:25pm [facility] Medical Records Department [address] [place] [address] Emergency Department Summary 09/19/24 MR#: [id number] Acct: [id number] Name: PATRICK KOROMA Rep #:[id number] : 1980 44 From: Brian Maldonado MD PCP: ERIC Anaya Status:REG ER Location: ED HPI History of Present Illness Chief Complaint: Upper Extremity Injury Narrative Narrative: 44-year-old male, tqopp-zsvl-gqpaqcmz, presents with injury to his right shoulder [...] raise his right arm. Denies other injuries[facility] Medical History Seroma after procedure Influenza [...] clavicle and shoulder pain worse with movement. Qjnsc-rahs-xluezoqf. Denies hitting of his head or loss [...] AC joint separation. Patient was given 1 Elsah tablet here for analgesia and x-rays obtained [...] not improving. I feel he can take pdah-uhy-kcwtmdq medications for analgesia. Return instructions to the [...] 1 Week if not improving Viola Starkey NP, PACKAGE SEALER MACHINE-C [Primary Care Provider] - Activity Restrictions/Additional Instructions: You may wear the sling for comfort but exercise your right shoulder at least 3 times a day to prevent frozen shoulder. Epvn-cqz-yrcrogw medications as needed for pain. Follow-up with orthopedics if not improving. Print Language: Montserratian Disposition Disposition: Home, Self Care What to do if you have Problems For any increased pain, shortness of breath, bleeding, nausea or vomiting, chestpain, or any unexpected problems, contact your Primary Care Provider. Call [facility] ([phone]) or report to the closest Emergency Room. Call 911 if necessary. 09/19/242224 <Electronically signed by Brian Maldonado MD> Cosigner Signature (if applicable): CC: PACKAGE SEALER MACHINE-C Viola Starkey ~ [facility]igned [facility] Work Phone: 1(106) 404-154703-11-2025 Radiology Diagnostic study note [facility] Imaging Services [address] [place] [address] Shoulder min 2 Views MR#: [id number] Acct: [id number] Name: PATRICK KOROMA Rep #: [id number] : 1980 M 44 From: Shahbaz Johnson DO PCP: Care Physician,No Primary Status: PRE ER Study:Shoulder min 2 Views Date of Exam: 08/24/24 Exam# [id number] Ordering Dr: Provider ,Ed P. PROCEDURE: Right shoulder radiographs REASON FOR EXAM: PAIN, LOSS OF MOBILITY TECHNIQUE: Four views of the right shoulder COMPARISON: None. FINDINGS: See impression RAD/Shoulder min 2 Views IMPRESSION: Negative for acute fracture or malalignment. 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 Mildacromioclavicular joint osteoarthritis. Reading Location: [facility] CC: ED PHYSICIAN PROVIDER; No Primary Care Physician ~ Aircraft Charter Dispatcher: [facility]igned [facility]02-28-2025 History of Present illness Narrative* Stephon [...] <40). Stephon Benavides MD documented in this [facility] Work Phone: [phone]) 108-662201-14-2025 History of Present illness Narrative* Jonathan Gonzalez MD - 06/29/2024 2:45 PM EST History Of Present Illness : Patrick Cali is a 44 y.o. male who presents as a self-referral for second opinion with regard to his abdominal wall. The patient lives in [facility]. The patient has had multiple abdominal operations in the past. He had a laparoscopic appendectomy in 2000 in [place]. He thereafter had 3 operations for abdominal wall hernias by Dr. Aaron Duque at [facility]. In 2016 and 2018, he underwent laparoscopic [...] abdomen pelvis was in May 09 at [facility] in [place]. The patient has noted recurrent fullness in the mid abdomen, with associated sharp pain especially at night, since March 2024.. He denies other symptoms such as nausea vomiting diarrhea constipation changes bowel habits or blood in the stool. Patient is engaged to be to Afshan who accompanied him to the office. He has 4 children. 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 The patient [...] Not Present- Headaches, Numbness, Tingling, Seizures, Stroke, SHIP CARPENTER Shunt and Weakness. Psychiatric: Not Present- Anxiety, [...] recommendations and management plan documented in this [facility] Work Phone: 1(355) 957-959212-02-2024 Hospital Discharge instructions Patient Education 05/16/2024 22:58:38 [...] or as directed by your healthcare provider [phone] [employer]. [address] [place] [address], [place] [address]. All rights reserved. This information is not intended as a substitute for professional medical care. Always follow yourhealthcare professional's instructions. Follow Up Care 05/16/2024 21:33:35 With:AARON DUQUE MD, Surgery Address: [address] [facility] [place] [address] [phone] When:2-4 days [facility] Bernadine 12-01-2024 Emergency department Discharge summary Discharge Instructions Thank you for allowing [facility] to assist you with your healthcare needs. [...] DUQUE MD, Surgery When:Within 2-4 days Where:[address] [place] [address] [phone] Allergies Keflex Keppra Rash Tape, Paper Rash [...] or as directed by your healthcare provider [phone] [employer]. [address] [place] [address]. All rights reserved. This information is not intended as a substitute for professional medical care. Always follow yourhealthcare professional's instructions. Additional Information VACCINATE! IT SAVES LIVES! Members of the community who have not yet received the COVID-19 vaccine and would like to receive it can visit one of [facility] vaccine clinics. There are many vaccine clinic locations within the [facility]. For locations and available times, please visit www.gettheshot.coronavirus.[place].gov/. It is important to note that some COVID mobile vaccine clinics are held outdoors and may be canceled in rainy or stormy conditions. To learn more about pediatric vaccinations (ages 5-11), we invite you to visit the [facility] webpage. https://www.[facility].org/pages/8756-Dtysp-Twygrsybmlf-Qvslppplqn-Szmlk-Baf stions.htmlTo learn more about the COVID-19 vaccine, we invite you to visit the CDC website for a list of frequently asked questions. https://www.cdc.gov/coronavirus/2019-ncov/vaccines/faq.html [facility] Patient Portal Access Instructions: Stay connected with your healthcare team and access your personal medical information anytime with the [employer] Patient Portal. If you would like a full copy of your medical records please contact the [facility] Medical Records Department Friday through Friday between 8a.m. and 4:30p.m. Please follow the directions below to access the portal: 1.Access the email account you provided upon registration to the [facility].2.Look for an invitation email from [facility].3.Open the email and access the invitation link: Accept Invitation to [facility]4.Fill in the required vegas to create your account. Sign into www.[email or web address] Software with your username and password that you [...] you will allow to register on the [employer] Patient Portal for access to your information. You can also access the [facility] Patient Portal on the [employer] Simply click on Health Records under [facility] and then click on the [employer] logo. HOW TO SAFELY DISPOSE OF PRESCRIPTION [...] Call your local pharmacy or go to http://I Like My Waitress.[employer]/5X4Ip3r to find one close to you.3.Make use of household items: Use cat litter or old coffee grounds to dispose medications if other options arenot available. Mix your drugs with these household products, seal them in an airtight container andthrow it into the garbage. Call [facility]: [phone] to be sure your drugs can be [...] aware that I should contact my doctor. Patient/Engineering Executive Signature: Date/Time: Relationship to Patient: Witness Name/Signature: Date/Time: [facility]12-01-2024 Emergency department Discharge summary Discharge Instructions Thank you for allowing [facility] to assist you with your healthcare needs. [...] DUQUE MD, Surgery When:Within 2-4 days Where:[address] [facility] [place] [address] [phone] Allergies Keflex Keppra Rash Tape, Paper Rash [...] or as directed by your healthcare provider [phone] [employer]. [address] [place] [address]. All rights reserved. This information is not intended as a substitute for professional medical care. Always follow yourhealthcare professional's instructions. Additional Information VACCINATE! IT SAVES LIVES! Members of the community who have not yet received the COVID-19 vaccine and would like to receive it can visit one of [facility] vaccine clinics. There are many vaccine clinic locations within the [facility]. For locations and available times, please visit www.gettheshot.coronavirus.[place].gov/. It is important to note that some COVID mobile vaccine clinics are held outdoors and may be canceled in rainy or stormy conditions. To learn more about pediatric vaccinations (ages 5-11), we invite you to visit the [facility] webpage. https://www.[facility].org/pages/9607-Apppz-Oknwecyzwtk-Zezsvffojm-Fynhq-Nrl stions.htmlTo learn more about the COVID-19 vaccine, we invite you to visit the CDC website for a list of frequently asked questions. https://www.cdc.gov/coronavirus/2019-ncov/vaccines/faq.html [facility] Patient Portal Access Instructions: Stay connected with your healthcare team and access your personal medical information anytime with the [facility] Patient Portal. If you would like a full copy of your medical records please contact the [facility] Medical Records Department Friday through Friday between 8a.m. and 4:30p.m. Please follow the directions below to access the portal: 1.Access the email account you provided upon registration to the [facility].2.Look for an invitation email from [facility].3.Open the email and access the invitation link: Accept Invitation to I.Systems4.Fill in the required vegas to create your account. Sign into www.[employer] with your username and password that you [...] you will allow to register on the [employer] Patient Portal for access to your information. You can also access the [facility] Patient Portal on the [employer] Simply click on Health Records under [facility] and then click on the [employer] logo. HOW TO SAFELY DISPOSE OF PRESCRIPTION [...] Call your local pharmacy or go to http://I Like My Waitress.[employer]/1E5Bh5h to find one close to you.3.Make use of household items: Use cat litter or old coffee grounds to dispose medications if other options arenot available. Mix your drugs with these household products, seal them in an airtight container andthrow it into the garbage. Call [facility]: [phone] to be sure your drugs can be [...] aware that I should contact my doctor. Patient/Engineering Executive Signature: Date/Time: Relationship to Patient: Witness Name/Signature: Date/Time: [facility]12-01-2024 Note ORIGINAL EXAMINATION: CT OF THE ABDOMEN [...] Sign Date: 05/16/2024 10:27:09 PM Ordering Provider: [facility]05-07-2024 Telephone encounter Note* Telephone Encounter - Christy [...] Dr. Hannah. Christy Rodrigez RN BSN Nurse Embossing Tool Setter [facility] Work Phone: [phone] Miscellaneous Notes* Telephone Encounter - Christy Rodrigez [...] Dr. Hannah. Christy Rodrigez RN BSN Nurse Embossing Tool Setter * Telephone Encounter - Christy Rodrigez RN - 10/10/2023 10:21 AM EDT Neuro SPINE CARE COORDINATION QUICK NOTE Dr. Borrero received referral from Dr. Richardson. Ordered placed for spine med injection with Dr. Hannah. Called patient to advise. Received VM message 'calling restrictions that have prevented the completion of the call' MYC message sent. Christy Rodrigez RN BSN Nurse Embossing Tool Setter documented [facility] Telephone encounter Note * Telephone Encounter - Christy Rodrigez RN - 10/10/2023 10:21 AM EDT Neuro SPINE CARE COORDINATION QUICK NOTE Dr. Borrero received referral from Dr. Richardson. Ordered placed for spine med injection with Dr. Hannah. Called patient to advise. Received VM message 'calling restrictions that have prevented the completion of the call' MYC message sent. Christy Rodrigez RN BSN Nurse Embossing Tool Setter [facility]04-02-2024 History and physical note* Diana Graham [...] COVID-19 Immunization Status Overdue - Covid-19 Vaccine () Overdue since 02/14/2023 04/30/2021 Imm Admin: COVID-19 [...] requiring medication, no history of angina, CHF, MS, cardiac surgery or stents. Denies rest pain, [...] 362 QTC Calculation (Bazett) 457 Calculated P [place] 30 Calculated R [place] 19 Calculated T [place] 18 Impression NORMAL SINUS RHYTHM NORMAL ECG No results found for this or any previous visit (from the past 83638 hour(s)). Instructions Given to Patient: Instructions located in the after visit summary. Patient given verbal and written preop instructions and voices comprehension and compliance. SIGNATURE: Diana Graham PA-C PATIENT NAME: Patrick Koroma DATE: September 15, 2023 TIME: 1:59 PM PAGER/CONTACT #: documented in [facility] Instructions* Patient Instructions* Diana Graham PA-C - 09/15/2023 1:58 PM EDT PATIENT PREOPERATIVE INSTRUCTIONS Jese Richardson* has scheduled you for your procedure at this surgery center: [facility] [place] Scheduling Office: [phone] --[address] [place] [address]. Please read below carefully for your personalized [...] Procedures: - YOU MUST HAVE A RESPONSIBLE CRIMINAL JUDGE TAKE YOU HOME. A HOT CAR CHARGER OR CARDIOPULMONARY TECHNICIAN CANNOT BE MADE A RESPONSIBLE CRIMINAL JUDGE. - We recommend that a responsible person [...] call the Friday before. Your surgeon s dental scheduler will tell you what time to call the office. - If you have not reached the departmental dental scheduler by 5 P.M., call [phone] after 5 P.M. the day before your surgery. Please be aware that emergency situations arise, which may delay or change your surgical time. If this happens, we will notify you as soon as possible and regret any inconvenience. If you already have an Advance Directive, please fax a copy to [phone] or email to for it to be [...] day. Diana Graham PA-C documented in this [facility] Hospital Discharge instructions Patient Education 09/11/2023 [...] foods again, start with small amounts of ocag-hv-vsrvzd, low- fat foods. These include apple sauce, [...] increase stomach acid. Don't use aspirin or abfh-snw-fscbtuh pain and fever medicines, if possible. This includes nonsteroidal anti-inflammatory drugs (NSAIDs). Lose excess weight. Finish eating at least 2 hours before you go to bed or lie down. Raise the head of your bed. [phone] [employer]. [address] [place] [address]. All rights reserved. This information is not intended as a substitute for professional medical care. Always follow yourhealthcare professional's instructions. Follow Up Care 09/11/2023 18:01:14 With:VIOLA STARKEY APRN-CURTAIN MENDER Address: [address] [place] [phone]- [phone] When:2-4 days [facility] 03-28-2024 Note Discharge Instructions Thank you for allowing [facility] to assist you with your healthcare needs. The following is importantdischarge information regarding your hospital visit. Diagnosis from Today's Visit Abdominal pain Abdominal pain What to Do Next Instructions from Your Care Team No qualifying data available. Post Acute Orders No qualifying data available. You Need to Schedule the Following Appointments Follow Up with VIOLA STARKEY When Within 2-4 days Where: [address] [place] [address]- [phone] Allergies Keflex Keppra (Rash) Tape, Paper (Rash) [...] foods again, start with small amounts of igkh-kr-ncyikj, low- fat foods. These include apple sauce, [...] increase stomach acid. Don't use aspirin or zelx-bvr-ighzvyb pain and fever medicines, if possible. This includes nonsteroidal anti-inflammatory drugs (NSAIDs). Lose excess weight. Finish eating at least 2 hours before you go to bed or lie down. Raise the head of your bed. 7517-1372 [employer]. [address] [place] [address], [place] [address]. All rights reserved. This information is not intended as a substitute for professional medical care. Always follow yourhealthcare professional's instructions. Additional Information VACCINATE! IT SAVES LIVES! Members of the community who have not yet received the COVID-19 vaccine and would like to receive it can visit one of [facility] vaccine clinics. There are many vaccine clinic locations within the [facility]. For locations and available times, please visit www.gettheshot.coronavirus.[place].gov/. It is important to note that some COVID mobile vaccine clinics are held outdoors and may be canceled in rainy or stormy conditions. To learn more about pediatric vaccinations (ages 5-11), we invite you to visit the [facility] webpage. https://www.[facility].org/pages/0461-Yklpz-Tqplyqeoqyu-Zkxgmmuwjv-Ectzo-Jdr stions.htmlTo learn more about the COVID-19 vaccine, we invite you to visit the CDC website for a list of frequently asked questions. https://www.cdc.gov/coronavirus/2019-ncov/vaccines/faq.html [facility] Patient Portal Access Instructions: Stay connected with your healthcare team and access your personal medical information anytime with the [employer] Patient Portal. If you would like a full copy of your medical records please contact the [facility] Medical Records Department Friday through Friday between 8a.m. and 4:30p.m. Please follow the directions below to access the portal: 1.Access the email account you provided upon registration to the hospital.2.Look for an invitation email from [facility].3.Open the email and access the invitation link: Accept Invitation to [facility]4.Fill in the required vegas to create your account. Sign into www.[employer] with your username and password that you [...] you will allow to register on the [employer] Patient Portal for access to your information. You can also access the [facility] Patient Portal on the [employer] yen. Simply click on Health Records under [facility] and then click on the [employer] logo. HOW TO SAFELY DISPOSE OF PRESCRIPTION [...] Call your local pharmacy or go to http://I Like My Waitress.[employer]/2V7Jh7k to find one close to you.3.Make use of household items: Use cat litter or old coffee grounds to dispose medications if other options arenot available. Mix your drugs with these household products, seal them in an airtight container andthrow it into the garbage. Call [facility]: [phone] to be sure your drugs can be [...] aware that I should contact my doctor. Patient/Engineering Executive Signature: Date/Time: Relationship to Patient: Witness Name/Signature: Date/Time: [facility]03-13-2024 Evaluation + Plan noteExtracted from: Title:Clinical Document Author:REYES MOORE ate:08/27/23 [place] ADMISSION HISTORY AN D PHYSICIAL CHIEF COMPLAINT: Colorectal cancer screening HISTORY OF PRESENT ILLNESS: Colorectal cancer screening, high risk, family history of colon cancer REVIEW OF SYSTEMS: Constitutional: denies weight loss Cardiovascular:denies chest pain, palpitations Respiratory:denies shortness of breath Gastrointestinal:no abd pain Musculoskeletal: no arthralgias Skin: no rashes ACTIVE PROBLEMS: (13) Acid reflux (202520751) 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 ([id number]) Electric shock (7061268352) Fall (0326004) Family history of colon cancer (033006466) Full dentures (641253854) Pain in the abdomen (48740078) Postprocedural hematoma of skin and subcutaneous tissue following other procedure (025069727) Screening for colon cancer (065001187) Seizure (404590037) TIA (346389628) Tobacco use (3627212075) Umbilical hernia (9300726845) MEDICATIONS: Active Inpt Meds: None Active PRN [...] IgG 08/07/23 * Complete Metabolic Panel 08/07/23 [facility] 03-13-2024 Hospital Discharge instructions Patient Education 08/27/2023 [...] before eating solid foods. General instructions Take hfug-oah-bktdxti and prescription medicines only as told by [...] 09/22/2016 Document Revised: 08/31/2018 Document Reviewed: 09/22/2016 [facility] Patient Education 2020 [employer]. 08/27/2023 10:26:35 Colonoscopy, Adult, Care After Colonoscopy, [...] a slower pace than normal. ?Eat soft, ywwt-jb-aenoqh foods. Take tbgs-ijd-ydhlcrq or prescription medicines only as told by [...] 01/14/2005 Document Revised: 03/25/2018 Document Reviewed: 08/13/2016 [facility] Patient Education 2020 [employer] Follow Up Care 08/22/2023 07:36:51 With:REYES MOORE DO, Clinical Gastroenterology Address: [address] [place] [address] [place] [address]- [phone] When:Within 1 Year(s) Comments:Repeat colonoscopy in 1 year. Will need extra bowel prep. With:VIOLA STARKEY Address: [address] [place] [phone] When: Unknown [facility] 03-13-2024 Note Discharge Instructions Thank you for allowing [facility] to assist you with your healthcare needs. [...] year. Will need extra bowel prep. Where: [address] [place] [address] [place] [address]- [phone] Follow Up with VIOLA STARKEY When Where: [address] [place] [phone] The Following Activity and Diet Have Been [...] before eating solid foods. General instructions Take sbyz-cvy-ewvfuqs and prescription medicines only as told by [...] 09/22/2016 Document Revised: 08/31/2018 Document Reviewed: 09/22/2016 [facility] [facility] Patient Education 2020 [place]. Colonoscopy, Adult, Care After This sheet gives [...] slower pace than normal. ? Eat soft, vfwf-kt-qscynz foods. Take gwoi-qme-cdibriq or prescription medicines only as told by [...] 01/14/2005 Document Revised: 03/25/2018 Document Reviewed: 08/13/2016 [facility] [facility] Patient Education 2020 [employer] [place]. Additional Information VACCINATE! IT SAVES LIVES! Members of the community who have not yet received the COVID-19 vaccine and would like to receive it can visit one of [facility] vaccine clinics. There are many vaccine clinic locations within the [facility]. For locations and available times, please visit [email or web address]/. It is important to note that some COVID mobile vaccine clinics are held outdoors and may be canceled in rainy or stormy conditions. To learn more about pediatric vaccinations (ages 5-11), we invite you to visit the [employer] [facility] webpage. https://www.[facility].org/pages/7558-Ebjhw-Nbytsljrpqc-Dbieyskcgd-Avqbe-Yig stions.htmlTo learn more about the COVID-19 vaccine, we invite you to visit the CDC website for a list of frequently asked questions.https://www.cdc.gov/coronavirus/2019-ncov/vaccines/faq.html [facility] Patient Portal Access Instructions: Stay connected with your healthcare team and access your personal medical information anytime with the I.Systems Patient Portal. Please follow the directions below to create your I.Systems account: 1.Access the email account you provided upon registration to the hospital/physician office.2.Look for an invitation email from [facility].3.Open the email and access the invitation link: AcceptInvitation to [facility].4.Fill in the required vegas to create your account. To access your account, visit [employer] TechnologiesIsael. Click the blue button labeled Access Patient [...] who you will allowto register on the [facility]ashiChart Patient Portal for access to your information. You can also access the [facility] OneChart Patient Portal on the [facility] yen. Simply click on Patient Portal and then log into your account. If you would like to receive a full copy of your medical records, please contact the [facility] Medical Records Department by calling [phone], Friday through Friday between 8 a.m. and [...] Call your local pharmacy or go to http://I Like My Waitress.[employer]/[email or web address] to find one close to you.3.Make use of household items: Use cat litter or old coffee grounds to dispose medications if other options arenot available. Mix your drugs with these household products, seal them in an airtight container andthrow it into the garbage. Call [facility]: [phone] to be sure your drugs can be [...] aware that I should contact my doctor. Patient/Engineering Executive Signature: Date/Time: Relationship to Patient: Witness Name/Signature: Date/Time: [facility]03-13-2024 Anesthesiology Consult note Patient: PATRICK KOROMA Age: 43 years Sex: Male : 1980 Associated Diagnoses: None Author: DARIEL HITCHCOCK APRN-ALLERGY AND IMMUNOLOGY SPECIALIST Assessment Postanesthesia assessment Vitals: Vital signs from [...] by DARIEL HITCHCOCK on 08/27/2023 10:18 AM [facility]03-13-2024 Anesthesiology Consult note Patient: PATRICK KOROMA Age: 43 years Sex: Male : 1980 Associated Diagnoses: None Author: DARIEL HITCHCOCK Preoperative Information Time of last solid food [...] Pain in the abdomen / SNOMED CT 60968498 / Confirmed Acid reflux / SNOMED CT 480246236 / Confirmed 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 / SNOMED CT [id number] / Confirmed Fall / SNOMED CT 9288760 / Confirmed Family history of colon cancer / SNOMED CT 638206312 / Confirmed Electric shock / SNOMED CT 8623220539 / Confirmed Full dentures / SNOMED CT 238758379 / Confirmed Screening for colon cancer / SNOMED CT 087506741 / Confirmed Postprocedural hematoma of skin and subcutaneous tissue following other procedure / SNOMED CT 476912531 / Confirmed Seizure / SNOMED CT 203912870 / Confirmed TIA / SNOMED CT 817482561 / Confirmed Umbilical hernia / SNOMED CT 6537930853 / Confirmed, Active Problems (13) Acid reflux 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 Electric shock Fall Family history of colon cancer Full dentures Pain in the abdomen Postprocedural hematoma of skin and subcutaneous tissue following other procedure Screening for colon cancer Seizure TIA Tobacco use Umbilical hernia Histories Past Medical History: Active TIA (915114174) Acid reflux (399586971) Seizure (018763899) Family History: Suicide Brother Congenital heart disease Brother Alcohol abuse Father () Stroke Mother Father () Diabetes Father () Colon cancer Father () Procedure history: Laparoscopic repair of recurrent umbilical hernia using synthetic mesh (3617709200) on 07/18/2022 at 42 Years. Comments: 07/23/2022 11:02 LAN - Leslie Boucher LPN OPEN REPAIR OF RECURRENT PERIUMBILICAL HERNIA WITH ANTERIOR COMPONENT SEPARATION WITH ONLAY MESH REPAIR Repair of recurrent ventral hernia (014516589) on 11/22/2021 at 41 Years. History of repair of umbilical hernia (5067043156) in 2019 at 39 Years. Appendectomy (746842257). Drain (48259138). Comments: 10/10/2022 15:45 EDT - Brandie Cummings CMA placed and removed x3 Social History Social & Psychosocial Habits Alcohol 4Risk Assessment: Denies Alcohol Use 08/27/2023 Use: Current Frequency: 1-2 times per year Employment/School 08/20/2023 Description: [place] Substance Abuse 4Risk Assessment: Denies Substance Abuse 08/27/2023 Use: Past Type: Marijuana Comment: patient quit >20 years ago - 11/23/2021 11:09 - AP[employer]NORS APRN-CURTAIN MENDER Tobacco 4Risk Assessment: High Risk 08/27/2023 Tobacco [...] Signs(last 24 hrs) Last Charted Heart Rate Hoytbttzt90 bpm (AUG 26 09:40) RPW384 mmHg (AUG 26:46) DBPH 93mmHg (AUG 26:46) BMI42.04 (AUG 26 09:40) Measurements from flowsheet : Measurements 08/27/2023 9:40 EDT Height 184.5 cm Admission Weight 143.1 kg Weight Method Stated [place] Body Weight 79.07 kg BSA Admission 2.6 [...] Surgeon SN - CAt - Role Performed ALLERGY AND IMMUNOLOGY SPECIALIST SN - CAt - Role Performed Wire Weaver 1 SN - CAt - Role Performed [...] Quadrants Present Skin Temperature Warm Skin Description [place], Dry Skin Integrity Intact Skin Moisture General [...] Allergies Yes Anesthesia Extension Set Applied Yes Retail Experience Specialist On Yes Colon Prep Results Good Consent [...] Person #1 We May Share RAINE Meyer [phone] Designated Person #1 Relationship Significant other Designated Person #2 We May Share RAINE Almeida [phone] Designated Person #2 Relationship Mother Privacy Restrictions Requested None Height 184.5 cm Admission Weight 143.1 kg Weight Method Stated [place] Body Weight 79.07 kg BSA Admission 2.6 [...] Method Explanation, Printed materials Preferred Spoken Language Montserratian Preferred Written Language Montserratian Information Given by Patient Patient's Current Physicians [...] Safety In Error (In Error) 08/27/2023 7:00 T Cache History and Physical . Assessment and Plan [place] Society of Anesthesiologists (ASA) physical status classification: Class III. Anesthetic Preoperative Plan Anesthetic technique: MAC. Informed consent: signed by patient. 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 ([id number]) Electric shock (7759112765) Fall (6250813) Family history of colon cancer (823939590) Full dentures (379061785) Pain in the abdomen (98149026) Postprocedural hematoma of skin and subcutaneous tissue following other procedure (490815331) Screening for colon cancer (062533183) Seizure (330253422) TIA (008333746) Tobacco use (0010457046) Umbilical hernia (6015222516) MEDICATIONS: Active Inpt Meds: None Active PRN [...] REYES MOORE DO on 08/27/2023 07:01 AM [facility]02-22-2024 Evaluation + Plan note Future Scheduled Tests Laboratory* Thyroid Stimulating Hormone 08/07/23 * Complete Blood Count 08/07/23 * Lipid Profile 08/07/23 * Hepatitis C Antibody IgG 08/07/23 * Complete Metabolic Panel 08/07/23 [facility] 02-21-2024 NoteHNO ID: [id number] Author: KELLEY MERAZ APRN.ALMA NOEL Service: ? 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 He was referred by Linda Griffiths CNP (General Surgery) [address] [address]. This consultation was shared with the referral source via the [facility] electronic medical record. The patient understanding [...] activity was identified. 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 He was referred by Linda Griffiths CNP (General Surgery) [address] [place] [id number]. This consultation was shared with the referral source via the [facility] electronic medical record. The patient understanding [...] suspiciousactivity was identified. 08/06/2023 by Kelley Meraz APRN.CURTAIN MENDER, DNP Functional Limitations: The patient has been [...] denied CHF: denied Uncontrolled HTN: denied Recent MS: denied Arrythmias: denied Afib: denied Hyperthyroid: denied [...] He served a totalof 6 years in [place]. He dropped out in the 12th grade due to heart attack. Got his GED. 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 [...] which included preparing to see the patient, lvzc-xj-hszj patient care, completing clinical documentation, obtaining and/or reviewing separately obtained history, performing a medically appropriate examination, counseling and educating the pat ient/family/caregiver, and ordering medications, tests, or procedures. Kelley Meraz APRN.ALMA NOEL [facility] NoteHNO ID: [id number] Author: JESE RICHARDSON MD Service: ? Author [...] our notes. Patient consented for study? [facility] NoteHNO ID: [id number] Author: VIVIANA TERESA MD Service: ? Author Type: Fellow Type: Progress Notes Filed: 07/07/2023 09:35 Note Text: [facility] Abdominal [facility] - HISTORY AND PHYSICAL Chief Complaint: pain to the left of the hernia repair HPI: Patrick Koroma is a 43 year old male with PMH post traumatic seizure disorder, s/p appendectomy and multiple hernia repair who presents with pain lateral to the hernia repair site On 11/22/21 he had a robotic assisted repair of recurrent ventral hernia at [facility] with Dr Aaron Duque with removal of [...] 2016 Umbilical hernia repair (no mesh) - 2018 Umbilical hernia repair with mesh No history [...] intervention needed. Mostly neuropathic pain Viviana Teresa, [facility]01-18-2024 Note. MICRO - Microbiology PROCEDURE: Blood [...] Locations *1: This test was performed at: [address], [address] [place] [address] ([place])07-03-2023 Note. MICRO - Microbiology PROCEDURE: Blood Culture [...] Locations *1: This test was performed at: [address], [address] [place] [address] ([place])07-01-2023 Note. MICRO - Microbiology PROCEDURE: Urine Culture [...] Locations *1: This test was performed at: [address], [address] [place] [address] ([place])06-28-2023 Hospital Discharge instructions Patient Education 06/28/2023 16:03:23 [...] that gets worse Trouble urinating Constipation Vomiting [phone] [employer]. [address] [place] [address]. All rights reserved. This information is not intended as a substitute for professional medical care. Always follow yourhealthcare professional's instructions. Follow Up Care 06/28/2023 13:49:11 With:AARON DUQUE MD, Surgery Address: [address] [facility] [place] [address]- [phone] When:2-4 days With:[facility] Address: [address] [place] [phone]- [phone] When:2-4 days [facility] 01-13-2024 Note Discharge Instructions Thank you for [...] Surgery When Within 2-4 days Where: [address] [facility] [place] [address]- [phone] Follow Up with [facility] When Within 2-4 days Where: [address] [place] [phone]- [phone] Allergies Keflex Keppra (Rash) Tape, Paper (Rash) [...] that gets worse Trouble urinating Constipation Vomiting [phone] [employer]. [address] [place] [address]. All rights reserved. This information is not intended as a substitute for professional medical care. Always follow yourhealthcare professional's instructions. Additional Information VACCINATE! IT SAVES LIVES! Members of the community who have not yet received the COVID-19 vaccine and would like to receive it can visit one of [facility] vaccine clinics. There are many vaccine clinic locations within the [facility]. For locations and available times, please visit www.gettheshot.coronavirus.[place].gov/. It is important to note that some COVID mobile vaccine clinics are held outdoors and may be canceled in rainy or stormy conditions. To learn more about pediatric vaccinations (ages 5-11), we invite you to visit the [facility] webpage. https://www.[facility].org/pages/2044-Gfhtk-Vcrltofwqco-Ryrrjdzwrs-Mureo-Gfl stions.htmlTo learn more about the COVID-19 vaccine, we invite you to visit the CDC website for a list of frequently asked questions. https://www.cdc.gov/coronavirus/2019-ncov/vaccines/faq.html [employer] Patient Portal Access Instructions: Stay connected with your healthcare team and access your personal medical information anytime with the I.Systems Patient Portal. If you would like a full copy of your medical records please contact the [facility] Medical Records Department Friday through Friday between 8a.m. and 4:30p.m. Please follow the directions below to access the portal: 1.Access the email account you provided upon registration to the [facility].2.Look for an invitation email from [facility].3.Open the email and access the invitation link: Accept Invitation to [facility]4.Fill in the required vegas to create your account. Sign into www.[employer] with your username and password that you [...] you will allow to register on the [facility] Patient Portal for access to your information. You can also access the [facility] Patient Portal on the [employer] Simply click on Health Records under [facility] and then click on the Wandy logo. [...] Call your local pharmacy or go to http://bit.[employer]/3D9Ut8q to find one close to you.3.Make use of household items: Use cat litter or old coffee grounds to dispose medications if other options arenot available. Mix your drugs with these household products, seal them in an airtight container andthrow it into the garbage. Call [facility]: [phone] to be sure your drugs can be [...] been reviewed and explained to me and IGA TIMOTHY A understand my current condition and have read and understand these discharge instructions. I have received a written copy of the plan/instructions. If I have questions, I am aware that I should contact my doctor. Patient/Engineering Executive Signature: Date/Time: Relationship to Patient: Witness Name/Signature: Date/Time: [facility]01-13-2024 Note ORIGINAL EXAMINATION: CT OF THE ABDOMEN [...] Date: 06/28/2023 4:25:43 PM Ordering Provider: [facility]01-13-2024 Evaluation + Plan note Diagnostic Tests Pending * Urine Culture 06/28/23 [facility] 12-24-2023 Hospital Discharge instructions Patient Education 06/08/2023 [...] foods again, start with small amounts of qdfu-ad-hqalri, low- fat foods. These include apple sauce, [...] increase stomach acid. Don't use aspirin or tweg-gbr-icqfnlb pain and fever medicines, if possible. This includes nonsteroidal anti-inflammatory drugs (NSAIDs). Lose excess weight. Finish eating at least 2 hours before you go to bed or lie down. Raise the head of your bed. [phone] [employer]. [address] [place] [address]. All rights reserved. This information is not intended as a substitute for professional medical care. Always follow yourhealthcare professional's instructions. Follow Up Care 06/08/2023 17:37:31 With:Follow up with primary care provider Address:Unknown When:2-4 days [facility] 12-24-2023 Note Discharge Instructions Thank you for allowing [facility] to assist you with your healthcare needs. [...] to receive it can visit one of [facility] vaccine clinics. There are many vaccine clinic locations within the [facility]. For locations and available times, please visit www.gettheshot.coronavirus.[place].gov/. It is important to note that some COVID mobile vaccine clinics are held outdoors and may be canceled in rainy or stormy conditions. To learn more about pediatric vaccinations (ages 5-11), we invite you to visit the [employer] [facility] webpage. https://www.[facility]Us.org/pages/4194-Ocbbz-Khsxvcncofs-Abkjwwnrkp-Vkzwc-Gsk stions.htmlTo learn more about the COVID-19 vaccine, we invite you to visit the CDC website for a list of frequently asked questions. https://www.cdc.gov/coronavirus/2019-ncov/vaccines/faq.html [facility] Patient Portal Access Instructions: Stay connected with your healthcare team and access your personal medical information anytime with the [facility] Patient Portal. If you would like a full copy of your medical records please contact the [facility] Medical Records Department Friday through Friday between 8a.m. and 4:30p.m. Please follow the directions below to access the portal: 1.Access the email account you provided upon registration to the [facility].2.Look for an invitation email from [facility].3.Open the email and access the invitation link: Accept Invitation to [facility]kong[facility]o4.Fill in the required vegas to create your account. Sign into www.[employer] with your username and password that you [...] you will allow to register on the [facility] Patient Portal for access to your information. You can also access the I[facility]Systems Patient Portal on the [employer] yen. Simply click on Health Records under [facility] and then click on the [employer] logo. HOW TO SAFELY DISPOSE OF PRESCRIPTION [...] Call your local pharmacy or go to http://I Like My Waitress.[employer]/2M8Aa8k to find one close to you.3.Make use of household items: Use cat litter or old coffee grounds to dispose medications if other options arenot available. Mix your drugs with these household products, seal them in an airtight container andthrow it into the garbage. Call [facility]: [phone] to be sure your drugs can be [...] aware that I should contact my doctor. Patient/Engineering Executive Signature: Date/Time: Relationship to Patient: Witness Name/Signature: Date/Time: [facility]12-02-2023 Hospital Discharge instructions Patient Education 05/16/2023 23:04:20 AA Blank DI (CUSTOM) Result type:CT Abd/Pelvis w/ IV Contrast Only Result date:May 16, 2023 21:13 EST Result status:Auth (Verified) Result title:CT ABD/PELVIS W/ IV CONTRAST ONLY Performed by:CARLO LUKE MD on May 16, 2023 21:06 EST Cosigned by:ZOILA MABRY DO Verified by:CARLO LUKE MD on May 16, 2023 21:13 EST Encounter info:[id number], [facility], [facility], 05/16/2023 - Contributor system:Crono * Final Report * [id number] ORIGINAL EXAMINATION: CT OF THE ABDOMEN AND [...] Document Reviewed: 06/03/2014 ExitCare Patient Information 2015 [facility] [facility]. This information is not intended to replace [...] blue color of the hand or foot [phone] [employer]. [address] [place] [address], [place] [address]. All rights reserved. This information is not [...] confusion Fainting or loss of consciousness Seizure 9541-4142 [employer]. [address] [place] [address]. All rights reserved. This information is not [...] foods again, start with small amounts of ated-nr-wsdoen, low- fat foods. These include apple sauce, [...] increase stomach acid. Don't use aspirin or yatc-atz-qnibypd pain and fever medicines, if possible. This includes nonsteroidal anti-inflammatory drugs (NSAIDs). Lose excess weight. Finish eating at least 2 hours before you go to bed or lie down. Raise the head of your bed. 7704-0008 [employer]. [address] [place] [address]. All rights reserved. This information is not intended as a substitute for professional medical care. Always follow yourhealthcare professional's instructions. Follow Up Care 05/16/2023 20:02:25 With:Go to emergency room if symptoms worsen Address:Unknown When:2-4 days With:Follow up with primary care provider Address:Unknown When:2-4 days [facility] 12-01-2023 Note ORIGINAL EXAMINATION: CT OF THE [...] the resident's findings and interpretation. Interpreted by: aCrlo Luke Preliminary Report By: Zoila Mabry Electronically signed By Carlo Luke Dictated Date: 05/16/2023 9:41:49 PM Prelim Date: 05/16/2023 10:07:10 PM Sign Date: 05/16/2023 10:45:51 PM Ordering Provider: [facility]08-30-2023 Hospital Discharge instructions Patient Education 02/12/2023 [...] chest, arm, back, neck or jaw pain [phone] [employer]. [address] [place] [address]. All rights reserved. This information is not intended as a substitute for professional medical care. Always follow yourhealthcare professional's instructions. Follow Up Care 02/12/2023 17:22:30 With:AARON DUQUE Address: [address] [facility] [place] [address]- [phone] Business (1) When:2-4 days With:NONE PHYSICIAN Address:Unknown When:2-4 days [facility] 08-30-2023 Emergency department Discharge summary Discharge Instructions Thank you for allowing [facility] to assist you with your healthcare needs. The following is importantdischarge information regarding your hospital visit. Diagnosis from Today's Visit Abdominal pain What to Do Next Instructions from Your Care Team No qualifying data available. Post Acute Orders No qualifying data available. You Need to Schedule the Following Appointments Follow Up with AARON DUQUE When Within 2-4 days Where: [address] [facility] [place] [address]- [phone] Business (1) Follow Up with NONE PHYSICIAN When [...] chest, arm, back, neck or jaw pain [phone] [employer]. [address] [place] [address]. All rights reserved. This information is not intended as a substitute for professional medical care. Always follow yourhealthcare professional's instructions. Additional Information VACCINATE! IT SAVES LIVES! Members of the community who have not yet received the COVID-19 vaccine and would like to receive it can visit one of [facility] vaccine clinics. There are many vaccine clinic locations within the [facility]. For locations and available times, please visit www.gettheshot.coronavirus.[place].gov/. It is important to note that some COVID mobile vaccine clinics are held outdoors and may be canceled in rainy or stormy conditions. To learn more about pediatric vaccinations (ages 5-11), we invite you to visit the [facility] webpage. https://www.[facility].org/pages/0324-Sxffo-Wmecknmskvb-Uatyknsrdj-Fdgge-Krm stions.htmlTo learn more about the COVID-19 vaccine, we invite you to visit the CDC website for a list of frequently asked questions. https://www.cdc.gov/coronavirus/2019-ncov/vaccines/faq.html [facility] Patient Portal Access Instructions: Stay connected with your healthcare team and access your personal medical information anytime with the [facility] Patient Portal. If you would like a full copy of your medical records please contact the [facility] Medical Records Department Friday through Friday between 8a.m. and 4:30p.m. Please follow the directions below to access the portal: 1.Access the email account you provided upon [facility] to the [facility].2.Look for an invitation email from [facility].3.Open the email and access the invitation link: Accept Invitation to [facility]4.Fill in the required vegas to create your account. Sign into www.[employer] with your username and password that you [...] you will allow to register on the [facility] Patient Portal for access to your information. You can also access the [facility] Patient Portal on the [employer] yen. Simply click on Health Records under [employer] and then click on the [employer] logo. HOW TO SAFELY DISPOSE OF PRESCRIPTION [...] Call your local pharmacy or go to http://I Like My Waitress.[employer]/[email or web address] to find one close to you.3.Make use of household items: Use cat litter or old coffee grounds to dispose medications if other options arenot available. Mix your drugs with these household products, seal them in an airtight container andthrow it into the garbage. Call [facility]: [phone] to be sure your drugs can be [...] aware that I should contact my doctor. Patient/Engineering Executive Signature: Date/Time: Relationship to Patient: Witness Name/Signature: Date/Time: [facility] Wandy [id number] Emergency department Discharge summary Discharge Instructions Thank [...] DUQUE When Within 2-4 days Where: [address] [facility] [place] [address] [phone] Business (1) Follow Up with NONE PHYSICIAN When [...] chest, arm, back, neck or jaw pain [phone] [employer]. [address] [place] [address], [place] [address]. All rights reserved. This information is not intended as a substitute for professional medical care. Always follow yourhealthcare professional's instructions. Additional Information VACCINATE! IT SAVES LIVES! Members of the community who have not yet received the COVID-19 vaccine and would like to receive it can visit one of [facility] vaccine clinics. There are many vaccine clinic locations within the [facility]. For locations and available times, please visit www.gettheshot.coronavirus.[place].gov/. It is important to note that some COVID mobile vaccine clinics are held outdoors and may be canceled in rainy or stormy conditions. To learn more about pediatric vaccinations (ages 5-11), we invite you to visit the [employer] [facility] webpage. https://www.[facility]s.org/pages/6571-Eirdz-Esepicbelaw-Moxpjbvoox-Eazuo-Yly stions.htmlTo learn more about the COVID-19 vaccine, we invite you to visit the CDC website for a list of frequently asked questions. https://www.cdc.gov/coronavirus/2019-ncov/vaccines/faq.html [facility] Patient Portal Access Instructions: Stay connected with your healthcare team and access your personal medical information anytime with the [facility] Patient Portal. If you would like a full copy of your medical records please contact the [facility] Medical Records Department Friday through Friday between 8a.m. and 4:30p.m. Please follow the directions below to access the portal: 1.Access the email account you provided upon registration to the hospital.2.Look for an invitation email from [facility].3.Open the email and access the invitation link: Accept Invitation to [facility]4.Fill in the required vegas to create your account. Sign into www.[employer] with your username and password that you [...] you will allow to register on the [facility] Patient Portal for access to your information. You can also access the [facility] Patient Portal on the [employer] Simply click on Health Records under HealthData and then click on the [employer] logo. HOW TO SAFELY DISPOSE OF PRESCRIPTION [...] Call your local pharmacy or go to http://I Like My Waitress.[employer]/[email or web address] to find one close to you.3.Make use of household items: Use cat litter or old coffee grounds to dispose medications if other options arenot available. Mix your drugs with these household products, seal them in an airtight container andthrow it into the garbage. Call [facility]: [phone] to be sure your drugs can be [...] been reviewed and explained to me and ISANTAZOEYMARITZA PATRICK Guerrero understand my current condition and have read and understand these discharge instructions. I have received a written copy of the plan/instructions. If I have questions, I am aware that I should contact my doctor. Patient/Engineering Executive Signature: Date/Time: Relationship to Patient: Witness Name/Signature: Date/Time: [facility]08-30-2023 Note ORIGINAL EXAMINATION: CT OF THE ABDOMEN [...] Date: 02/12/2023 8:10:54 PM Ordering Provider: [facility]08-30-2023 Note Sinus rhythm RSR' in V1 or V2, probably normal variant Baseline wander in lead(s) II,III,aVF,V2 Compared to ECG at 03/08/2018 23:11:38 BORDERLINE ECG Electronic Signature: ALTAGRACIASolisANJEL DO 02/12/2023 17:53:40[facility] 05-16-2023 NoteORIGINAL PROCEDURE: Fluoroscopic drainage catheter evaluation (Abscessogram) performed on 10/28/2022. INDICATION: LLQ seroma s/p drain and sclerosis. The patient reports minimal drainage recently. COMPARISON: 10/21/2022. TECHNIQUE/FINDINGS: The procedure was performed in the VIR Suite with the patient in the supine position. A washerette machine operator image demonstrated position of the existing percutaneous [...] Sign Date: 10/29/2022 10:35:26 AM Ordering Provider: [facility] ([place]) 10-29-2022 NoteORIGINAL PROCEDURE: Ultrasound guided percutaneous drainage [...] Sign Date: 10/29/2022 10:32:48 AM Ordering Provider: [facility] ([place])10-28-2022 History and physical note IR PREPROCEDURE H&P [...] 10/10/2022 and can be found in the [facility] Electronic [facility] Records ([facility]). Roshni Flores PA-C Interventional Radiology Pager [phone] IR Dept [id number] Available on Rewind Met Digitally Signed by ROSHNI FLORES PA-C on 10/28/2022 05:27 PM [id number] Note* Farrah Mcallister RN: SIGN, AUTHOR, SIGN, AUTHOR, PERFORM Event Display: IR Procedure Record Authored Date: [id number] IR Procedure Record Summary Primary Physician: Finalized Date/Time: 10/28/22 15:00:43 Pt. Name: PATRICK KOROMA/Sex: 1980 Male Med Rec #: [id number] Physician: Financial #: [id number] Pt. Type: O Room/Bed: / Admit/Disch: 10/28/22 [...] Entry 3 Case Attendee ESAU LOVE MD, Windmill Mechanic Brandie Mendez Windmill Mechanic Role Performed Radiologist Procedure Scrub Technologist Circulating [...] Case Attendee Farrah Mcallister RN Role Performed Wire Weaver 1 Details Time In 10/28/22 14:40:00 Time [...] mL Medication OMNIPAQUE 300 50ML 10/PK Y-530 [facility] 1312-9825-37 Radiology Flouroscopy Fluoroscopy Used? Yes Fluoro Dose [...] and Vanessa Celeste, results are properly Brandie Sellers, labeled and Farrah Mcallister RN appropriately displayed, Alcohol based prep dry Instrument Sterility Procedure IR Drainage Cath Removal Fluoro Guide SN Last Modified By: Farrah Mcallister RN 10/28/22 14:56:00 Skin Prep- IR Entry 1 Procedure IR Drainage Cath Removal Fluoro Guide SN Skin Prep Prep Area Abdomen Side Left By Sky Goff Prep Agents Chloraprep Suzie K Hair Removal Method N/A Last Modified By: [...] Radiology - Action Plan Outcomes Met? Yes Proof Plate Maker Farrah Mcallister RN Completing Procedure Plan Last Modified By: Farrah Mcallister RN 10/28/22 14:51:12 Case Comments <None> Finalized By: Farrah Mcallister RN Document Signatures Signed By: Farrah Mcallister RN 10/28/22 14:58 Farrah Mcallister RN 10/28/22 15:00 [facility] 05-15-2023 Hospital Discharge instructions Patient Education 10/28/2022 14:57:53 Radiology- Procedure/Biopsy 09/29/2019 (CUSTOM) [place] Radiology Procedure/Biopsy Discharge Instructions Interventional Radiology [facility] Imaging Services [address] [place] [address] Today, you had a . This procedure/biopsy [...] 1 to 2 days following the procedure. Biqy-hem-xobiguj pain medication should be used for pain [...] instruction below: 8:00 am- 5:00 pm call [phone] After 5:00 pm call [phone] After 24 hours, contact the physician who [...] with primary care provider Address:Unknown When: Unknown [facility] 05-15-2023 Note IR Procedure Record Summary Primary Physician: Finalized Date/Time: 10/28/22 15:00:43 Pt. Name: PATRICK KOROMA Cesar Marquez/Sex: 1980 Male Med Rec #: [id number] Physician: Financial #: [id number] Pt. Type: O Room/Bed: / Admit/Disch: 10/28/22 [...] 2 Entry 3 Case Attendee ESAU LOVE MD [facility], Windmill Mechanic VanessaBrandie mercer Windmill Mechanic Role Performed Radiologist Procedure Scrub Technologist Circulating [...] Case Attendee Farrah Mcallister RN Role Performed Wire Weaver 1 Details Time In 10/28/22 14:40:00 Time [...] mL Medication OMNIPAQUE 300 50ML 10/PK Y-530 [facility] 8829-6405-58 Radiology Flouroscopy Fluoroscopy Used? Yes Fluoro Dose [...] and Vanessa Celeste, results are properly Brandie Sellers, labeled and Farrah Mcallister RN appropriately displayed, Alcohol based prep dry Instrument Sterility Procedure IR Drainage Cath Removal Fluoro Guide SN Last Modified By: Farrah Mcallister RN 10/28/22 14:56:00 Skin Prep- IR Entry 1 Procedure IR Drainage Cath Removal Fluoro Guide SN Skin Prep Prep Area Abdomen Side Left By Sky Goff Prep Agents Chloraprep Suzie K Hair Removal Method N/A Last Modified By: [...] Radiology - Action Plan Outcomes Met? Yes Proof Plate Maker Farrah Mcallister RN Completing Procedure Plan Last Modified By: Farrah Mcallister RN 10/28/22 14:51:12 Case Comments Finalized By: Farrah Mcallister RN Document Signatures Signed By: Farrah Mcallister RN 10/28/22 14:58 Farrah Mcallister RN 10/28/22 15:00 [id number] Summary of episode note Discharge Instructions Thank you for allowing [facility] to assist you with your healthcare needs. [...] medication providers or retail pharmacies. Education Materials [place] Radiology Procedure/Biopsy Discharge Instructions Interventional Radiology [facility] Imaging Services [address] [place] [address] Today, you had a . This procedure/biopsy [...] 1 to 2 days following the procedure. Zslu-dfp-mvpfago pain medication should be used for pain [...] instruction below: 8:00 am- 5:00 pm call [phone] After 5:00 pm call [phone] After 24 hours, contact the physician who [...] to receive it can visit one of [facility] vaccine clinics. There are many vaccine clinic locations within the [facility]. For locations and available times, please visit https://[email or web address].gov/. It is important to note that some COVID mobile vaccine clinics are held outdoors and may be canceled in rainy or stormy conditions. To learn more about pediatric vaccinations (ages 5-11), we invite you to visit the [employer] [facility] webpage. https://www.[facility]areds.org/pages/4450-Xjumt-Vcfavhscbue-Zhxnkhlohv-Mdxme-Eov stions.htmlTo learn more about the COVID-19 vaccine, we invite you to visit the CDC website for a list of frequently asked questions.https://www.cdc.gov/coronavirus/2019-ncov/vaccines/faq.html [employer] Patient Portal Access Instructions: Stay connected with your healthcare team and access your personal medical information anytime with the [employer] Patient Portal. Please follow the directions below to create your [employer] account: 1.Access the email account you provided upon registration to the hospital/physician office.2.Look for an invitation email from [facility].3.Open the email and access the invitation link: AcceptInvitation to [employer].4.Fill in the required vegas to create your account. To access your account, visit [employer] TechnologiesOneChart. Click the blue button labeled Access Patient Portal and then log in with the username and password that you created in the steps above. You will be able to view your test results, lab results, a summary of your visits, upcoming appointments and more. There is also a convenient messaging option where you can send secure messages to your p [employer]. In addition, you will have the ability to download any documents or summaries to your computer and/or send the information securely to a physician. Remember that your healthcare information is confidential, so carefully consider who you will allowto register on the [employer] Patient Portal for access to your information. You can also access the [employer] Patient Portal on the [employer] Anywhere yen. Simply click on Patient Portal and then log into your account. If you would like to receive a full copy of your medical records, please contact the [facility] Medical Records Department by calling [phone], Friday through Friday between 8 a.m. and [...] Call your local pharmacy or go to http://Kite/2X2Pc4d to find one close to you.3.Make use of household items: Use cat litter or old coffee grounds to dispose medications if other options arenot available. Mix your drugs with these household products, seal them in an airtight container andthrow it into the garbage. Call [facility]: [phone] to be sure your drugs can be [...] been reviewed and explained to me and I,VALDOMARITZA PATRICK Guerrero understand my current condition and have read and understand these discharge instructions. I have received a written copy of the plan/instructions. If I have questions, I am aware that I should contact my doctor. Patient/Engineering Executive Signature: Date/Time: Relationship to Patient: Witness Name/Signature: Date/Time: [facility] [id number] Evaluation + Plan noteExtracted from: Title:Preprocedure HP [...] 10/10/2022 and can be found in the [facility] Records ([facility]). Roshni Flores PA-C Interventional Radiology Pager [phone] IR Dept [id number] Available on [facility] Future Scheduled Tests Laboratory* Basic Metabolic Panel 11/23/21 * Carbamazepine Level 11/23/21 * Complete Metabolic Panel 11/23/21 [facility] 05-15-2023 Hospital Discharge instructions Patient Education 10/28/2022 [...] come back to this facility in person. [phone] [employer]. [address] [place] [address]. All rights reserved. This information is not intended as a substitute for professional medical care. Always follow yourhealthcare professional's instructions. Follow Up Care 10/28/2022 01:29:29 With:The IR department at [facility] Address:Unknown When:Within 1 Day(s) Comments:Follow-up as scheduled later today to have the drain removed.Return to the ED for any problems or concerns. [facility] 05-15-2023 Note Discharge Instructions Thank you for allowing [facility] to assist you with your healthcare needs. The following is importantdischarge information regarding your hospital visit. Diagnosis from Today's Visit Drain Problem Drain leakage What to Do Next Instructions from Your Care Team No qualifying data available. Post Acute Orders No qualifying data available. You Need to Schedule the Following Appointments Follow Up with The IR department at [facility] When In 1 day Why: Follow-up as [...] come back to this facility in person. [phone] [employer]. [address] [place] [address]. All rights reserved. This information is not intended as a substitute for professional medical care. Always follow yourhealthcare professional's instructions. Additional Information VACCINATE! IT SAVES LIVES! Members of the community who have not yet received the COVID-19 vaccine and would like to receive it can visit one of [facility] vaccine clinics. There are many vaccine clinic locations within the [facility]. For locations and available times, please visit www.gettheshot.coronavirus.[place].gov/. It is important to note that some COVID mobile vaccine clinics are held outdoors and may be canceled in rainy or stormy conditions. To learn more about pediatric vaccinations (ages 5-11), we invite you to visit the [employer] [facility] webpage. https://www.[facility].org/pages/3627-Lfoln-Rwspqdxbkia-Inrshzzllf-Gaxvn-Edv stions.htmlTo learn more about the COVID-19 vaccine, we invite you to visit the CDC website for a list of frequently asked questions. https://www.cdc.gov/coronavirus/2019-ncov/vaccines/faq.html [employer] Patient Portal Access Instructions: Stay connected with your healthcare team and access your personal medical information anytime with the [employer] Patient Portal. If you would like a full copy of your medical records please contact the [facility] Medical Records Department Friday through Friday between 8a.m. and 4:30p.m. Please follow the directions below to access the portal: 1.Access the email account you provided upon [facility].2.Look for an invitation email from [facility].3.Open the email and access the invitation link: Accept Invitation to [facility]4.Fill in the required vegas to create your account. Sign into www.[employer] with your username and password that you [...] you will allow to register on the [employer] Patient Portal for access to your information. You can also access the [employer] Patient Portal on the [employer] yen. Simply click on Health Records under [facility] and then click on the [employer] logo. HOW TO SAFELY DISPOSE OF PRESCRIPTION [...] Call your local pharmacy or go to http://I Like My Waitress.[employer]/[email or web address] to find one close to you.3.Make use of household items: Use cat litter or old coffee grounds to dispose medications if other options arenot available. Mix your drugs with these household products, seal them in an airtight container andthrow it into the garbage. Call [facility]: [phone] to be sure your drugs can be [...] reviewed and explained to me and I,PATRICK KROOMA understand my current condition and have read and understand these discharge instructions. I have received a written copy of the plan/instructions. If I have questions, I am aware that I should contact my doctor. Patient/Engineering Executive Signature: Date/Time: Relationship to Patient: Witness Name/Signature: Date/Time: [facility]05-15-2023 Note Discharge Instructions Thank you for allowing [facility] to assist you with your healthcare needs. The following is importantdischarge information regarding your hospital visit. Diagnosis from Today's Visit Drain Problem Drain leaking What to Do Next Instructions from Your Care Team No qualifying data available. Post Acute Orders No qualifying data available. You Need to Schedule the Following Appointments Follow Up with The IR department at [facility] When In 1 day Why: Follow-up as [...] come back to this facility in person. [phone] [employer]. [address] [place] [address], [place] [address]. All rights reserved. This information is not intended as a substitute for professional medical care. Always follow yourhealthcare professional's instructions. Additional Information VACCINATE! IT SAVES LIVES! Members of the community who have not yet received the COVID-19 vaccine and would like to receive it can visit one of [facility] vaccine clinics. There are many vaccine clinic locations within the [facility]. For locations and available times, please visit www.gettheshot.coronavirus.[place]/. It is important to note that some COVID mobile vaccine clinics are held outdoors and may be canceled in rainy or stormy conditions. To learn more about pediatric vaccinations (ages 5-11), we invite you to visit the [facility] webpage. https://www.[facility].org/pages/8352-Jkybm-Yrohemslqii-Tkpniosrei-Amqvc-Ben stions.htmlTo learn more about the COVID-19 vaccine, we invite you to visit the CDC website for a list of frequently asked questions. https://www.cdc.gov/coronavirus/2019-ncov/vaccines/faq.html [facility] Patient Portal Access Instructions: Stay connected with your healthcare team and access your personal medical information anytime with the [employer] Patient Portal. If you would like a full copy of your medical records please contact the [facility] Medical Records Department Friday through Friday between 8a.m. and 4:30p.m. Please follow the directions below to access the portal: 1.Access the email account you provided upon [facility] to the [facility].2.Look for an invitation email from [facility].3.Open the email and access the invitation link: Accept Invitation to [facility]4.Fill in the required vegas to create your account. Sign into www.[employer] with your username and password that you [...] you will allow to register on the [employer] Patient Portal for access to your information. You can also access the [facility] Patient Portal on the [employer] yen. Simply click on Health Records under [facility] and then click on the [employer] logo. [...] Call your local pharmacy or go to http://I Like My Waitress.[employer]/[email or web address] to find one close to you.3.Make use of household items: Use cat litter or old coffee grounds to dispose medications if other options arenot available. Mix your drugs with these household products, seal them in an airtight container andthrow it into the garbage. Call [facility]: [phone] to be sure your drugs can be [...] aware that I should contact my doctor. Patient/Engineering Executive Signature: Date/Time: Relationship to Patient: Witness Name/Signature: Date/Time: [facility] [id number] Note Discharge Instructions Thank you for allowing [facility] to assist you with your healthcare needs. The following is importantdischarge information regarding your hospital visit. Diagnosis from Today's Visit Drain Problem Drain leaking What to Do Next Instructions from Your Care Team No qualifying data available. Post Acute Orders No qualifying data available. You Need to Schedule the Following Appointments Follow Up with The IR department at [facility] When In 1 day Why: Follow-up as [...] come back to this facility in person. [phone] [employer]. [address] [place] [address]. All rights reserved. This information is not intended as a substitute for professional medical care. Always follow yourhealthcare professional's instructions. Additional Information VACCINATE! IT SAVES LIVES! Members of the community who have not yet received the COVID-19 vaccine and would like to receive it can visit one of [facility] vaccine clinics. There are many vaccine clinic locations within the [facility]. For locations and available times, please visit [email or web address]/. It is important to note that some COVID mobile vaccine clinics are held outdoors and may be canceled in rainy or stormy conditions. To learn more about pediatric vaccinations (ages 5-11), we invite you to visit the [facility] webpage. https://www.[facility].org/pages/6311-Sauly-Qxvnzyepkju-Axjhlzqjba-Wkfjk-Lmo stions.htmlTo learn more about the COVID-19 vaccine, we invite you to visit the CDC website for a list of frequently asked questions. https://www.cdc.gov/coronavirus/2019-ncov/vaccines/faq.html [employer]s Patient Portal Access Instructions: Stay connected with your healthcare team and access your personal medical information anytime with the I.Systems Patient Portal. If you would like a full copy of your medical records please contact the [facility] Medical Records Department Friday through Friday between 8a.m. and 4:30p.m. Please follow the directions below to access the portal: 1.Access the email account you provided upon [facility].2.Look for an invitation email from [facility].3.Open the email and access the invitation link: Accept Invitation to [facility]4.Fill in the required vegas to create your account. Sign into www.wandyGreytip Software with your username and password that you [...] you will allow to register on the [facility] Patient Portal for access to your information. You can also access the [facility] Patient Portal on the [employer] Simply click on Health Records under [employer] and then click on the Wandy logo. [...] Call your local pharmacy or go to [email or web address] Like My [email or web address] to find one close to you.3.Make use of household items: Use cat litter or old coffee grounds to dispose medications if other options arenot available. Mix your drugs with these household products, seal them in an airtight container andthrow it into the garbage. Call [facility]: [phone] to be sure your drugs can be [...] aware that I should contact my doctor. Patient/Engineering Executive Signature: Date/Time: Relationship to Patient: Witness Name/Signature: Date/Time: [facility]05-08-2023 Evaluation + Plan noteExtracted from: Title:Preprocedure HP [...] 10/10/2022 and can be found in the [facility] ([employer]). Roshni Flores PA-C Interventional Radiology Pager [phone] IR Dept [id number] Available on cortext Future Appointments Appointment Date:10/28/2022 01:00:00 PM Scheduled Provider: Location:IR Appointment Type:IR Drainage Cath Injection for Eval Future Scheduled Tests Laboratory* Basic Metabolic Panel 11/23/21 * Carbamazepine Level 11/23/21 * Complete Metabolic Panel 11/23/21 [facility] 05-08-2023 Note* Farrah Mcallister RN: SIGN, AUTHOR, SIGN, AUTHOR, SIGN, AUTHOR, PERFORM Event Display: IR Procedure Record Authored Date: [id number] IR Procedure Record Summary Primary Physician: Finalized Date/Time: 10/21/22 10:43:31 Pt. Name: PATRICK KOROMA Cesar /Sex: 1980 Male Med Rec #: [id number] Physician: Financial #: [id number] Pt. Type: O Room/Bed: / Admit/Disch: 10/21/22 [...] Case Attendee ESAU LOVE MD, Brittaney RN Hultman, Rad Tech Suzie Remy Role Performed Radiologist Procedure Wire Weaver 1 Scrub Technologist Details Time In 10/21/22 10:25:00 10/21/22 09:58:00 10/21/22 09:58:00 Time Out 10/21/22 10:38:00 10/21/22 10:38:00 10/21/22 10:38:00 Procedure/Preference IR Sclerotherapy SN IR Sclerotherapy SN IR Sclerotherapy SN Card Last Modified By: Farrah Mcallister RN, Brittaney RN Magee, Brittaney RN 10/21/22 10:38:11 10/21/22 10:38:11 10/21/22 10:38:11 Entry 4 Case Attendee Allie Glassful Мария Siddiqi Role Performed Circulating Technologist Details [...] IR Entry 1 Case Information Room IR 17 Case Level IR Level 2 [...] images and Sky Goff results are properly Suzei K, Sky Kelley labeled and Tech Мария Siddiqi appropriately displayed, [...] Radiology - Action Plan Outcomes Met? Yes Proof Plate Maker Farrah Mcallister RN Completing Procedure Plan Last [...] 10/21/22 10:38 Farrah Mcallister RN 10/21/22 10:43 [facility] 05-08-2023 Note IR Procedure Record Summary Primary Physician: Finalized Date/Time: 10/21/22 10:43:31 Pt. Name: PATRICK KOROMA/Sex: 1980 Male Med Rec #: [id number] Physician: Financial #: [id number] Pt. Type: O Room/Bed: / Admit/Disch: 10/21/22 [...] Attendee ESAU LOVE MD, Brittaney RN Hultman Glassful Suzie Remy Role Performed Radiologist Procedure Wire Weaver 1 Scrub Technologist Details Time In 10/21/22 10:25:00 10/21/22 09:58:00 10/21/22 09:58:00 Time Out 10/21/22 10:38:00 10/21/22 10:38:00 10/21/22 10:38:00 Procedure/Preference IR Sclerotherapy SN IR Sclerotherapy SN IR Sclerotherapy SN Card Last Modified By: Farrah Mcallister RN, Brittaney RN Magee, Brittaney RN 10/21/22 10:38:11 10/21/22 10:38:11 10/21/22 10:38:11 Entry 4 Case Attendee Allie Glassful Мария Siddiqi Role Performed Circulating Technologist Details [...] Allie Celeste Rad labeled and Tech Мария L appropriately displayed, Alcohol based prep dry Instrument [...] Radiology - Action Plan Outcomes Met? Yes Proof Plate Maker Farrah Mcallister RN Completing Procedure Plan Last [...] 10/21/22 10:38 Farrah Mcallister RN 10/21/22 10:43 [facility] [id number] History and physical note IR PREPROCEDURE H&P [...] 10/10/2022 and can be found in the [facility] ([facility]). Roshni Flores PA-C Interventional Radiology Pager [phone] IR Dept [id number] Available on cortext Digitally Signed by ROSHNI FLORES PA-C on 10/21/2022 09:38 AM Digitally Signed by ESAU LOVE MD on 10/21/2022 10:20 AM [facility] [id number] Note* Juliocesar Mo Windmill Mechanic: SIGN, AUTHOR, PERFORM Event Display: IR Procedure Record Authored Date: [id number] IR Procedure Record Summary Primary Physician: RAMIN SAMPSON MD Finalized Date/Time: 09/12/22 14:34:18 Pt. Name: PATRICK KOROMA Cesar /Sex: 1980 Male Med Rec #: [id number] Physician: Financial #: [id number] Pt. Type: O Room/Bed: / Admit/Disch: 09/12/22 [...] SAMPSON MD, Alexis Tech Fierstos, Megan R Windmill Mechanic Role Performed Primary Surgeon Scrub Technologist Circulating Technologist Details Time In 09/12/22 14:14:00 09/12/22 14:10:00 09/12/22 14:10:00 Time Out 09/12/22 14:30:00 09/12/22 14:30:00 09/12/22 14:30:00 Procedure/Preference IR Drainage Cath IR Drainage Cath IR Drainage Cath Card Injection for Eval SN Injection for Eval SN Injection for Eval SN Last Modified By: Juliocesar Mo Rad Juliocesar Mo Megan R Windmill Mechanic 09/12/22 14:30:28 Tech 09/12/22 14:30:28 Tech 09/12/22 14:30:28 Entry 4 Case Attendee Brandie Mendez Windmill Mechanic Role Performed Wire Weaver 1 Details Time In 09/12/22 14:10:00 Time Out 09/12/22 14:30:00 Procedure/Preference IR Drainage Cath Card Injection for Eval SN Last Modified By: Juliocesar Mo Windmill Mechanic 09/12/22 14:30:28 Radiology Procedures- IR Entry 1 Procedure/Preference IR Drainage Cath Actual Procedure ir drain cath inj for Card Injection for Eval SN eval sn Primary Procedure Yes Primary Surgeon RAMIN SAMPSON MD Anesthesia/Sedation None Type Additional Procedure Times Start 09/12/22 14:14:00 Stop 09/12/22 14:25:00 Specialty Service SN Radiology Procedure EBL 0 mL Last Modified By: Juliocesar Mo Windmill Mechanic 09/12/22 14:30:33 Radiology Procedure Details - IR Entry 1 Radiology Sedation Case Times Sedation Total Time 0 Radiology - Fluid/Drainage Radiology Contrast Contrast Used? Yes Dose 10 mL Medication OMNIPAQUE 300 50ML 10/PK Y-530 [facility] 2916-1043-80 Radiology Flouroscopy Fluoroscopy Used? Yes Fluoro Dose [...] the drain. Last Modified By: Juliocesar Mo R Windmill Mechanic 09/12/22 14:34:10 General Case Data - IR Entry 1 Case Information Room IR 18 Case Level IR Level 2 Wound Class None Specialty SN Radiology Procedure ASA Class None Diagnosis Preop Diagnosis LLQ Seroma Postop Same As Preop Yes Postop Diagnosis LLQ Seroma Last Modified By: Juliocesar Mo Windmill Mechanic 09/12/22 14:17:00 Procedure Case Times- IR Entry 1 Patient In Procedure Patient In OR 09/12/22 14:10:00 Patient Out of OR 09/12/22 14:30:00 Procedure Start/Stop Procedure Start Time 09/12/22 14:14:00 Procedure Stop Time 09/12/22 14:25:00 Last Modified By: Juliocesar Mo R Windmill Mechanic 09/12/22 14:30:24 Immediate Post Procedure Note - IR Entry 1 Immediate Post Yes Findings Successful drain cath Procedure Note sclerosis w/ etoh 9 ml displayed for Physician to review Closure Technique Closure Technique Other than Primary Last Modified By: Juliocesar Mo Windmill Mechanic 09/12/22 14:30:14 Immediate Post Procedure Note - IR Signed By: RAMIN SAMPSON MD 09/12/22 14:27 Allergy Information- IR Entry 1 Allergies Reviewed? Yes Allergies Reviewed Patient With Last Modified By: Juliocesar Mo Windmill Mechanic 09/12/22 14:12:52 Radiology Protocols/Time Out- IR Entry [...] properly Tech, Vanessa, labeled and Terra L Windmill Mechanic appropriately displayed, Alcohol based prep dry Instrument Sterility Team Members Vadim Berrios Verifying Sterility Procedure IR Drainage Cath Injection for Eval SN Last Modified By: Juliocesar Mo R Windmill Mechanic 09/12/22 14:15:05 Skin Prep- IR Entry 1 Procedure IR Drainage Cath Injection for Eval SN Skin Prep Prep Area Abdomen Side Left By Vadim Berrios Prep Agents Chloraprep Hair Removal Method N/A Last Modified By: Juliocesar Mo Tech 09/12/22 14:15:32 Patient Positioning- IR Entry 1 Procedure IR Drainage Cath Body Position OP Supine Injection for Eval SN Feet Uncrossed? Yes Pressure Points n/a Checked Last Modified By: Juliocesar Mo Windmill Mechanic 09/12/22 14:15:44 Radiology Procedure Plan - IR [...] symptoms of electrical injury. Outcomes Met? Yes Proof Plate Maker Juliocesar Mo Procedure Plan Last Modified By: Juliocesar Mo 09/12/22 14:16:26 Case Comments <None> Finalized By: Juliocesar Mo Document Signatures Signed By: Juliocesar Mo 09/12/22 14:34 [facility] 03-30-2023 Hospital Discharge instructions Patient Education 09/12/2022 14:26:09 Radiology- Procedure/Biopsy 09/29/2019 (CUSTOM) [place] Radiology Procedure/Biopsy Discharge Instructions Interventional Radiology [facility] Imaging Services [address] [place] [address] Today, you had a . This procedure/biopsy [...] 1 to 2 days following the procedure. Jrmi-erh-azkocar pain medication should be used for pain [...] instruction below: 8:00 am- 5:00 pm call [phone] After 5:00 pm call [phone] After 24 hours, contact the physician who [...] with primary care provider Address:Unknown When: Unknown [facility] 03-30-2023 Interventional radiology Progress note IR Brief [...] MARSHALL CROCKER PA-C on 09/12/2022 04:08 PM [facility] [id number] Note IR Procedure Record Summary Primary Physician: RAMIN SAMPSON MD Finalized Date/Time: 09/12/22 14:34:18 Pt. Name: PATRICK KOROMA /Sex: 1980 Male Med Rec #: [id number] Physician: Financial #: [id number] Pt. Type: O Room/Bed: / Admit/Disch: 09/12/22 [...] SAMPSON MD, Alexis Tech Fierstos, Megan R Windmill Mechanic Role Performed Primary Surgeon Scrub Technologist Circulating Technologist Details Time In 09/12/22 14:14:00 09/12/22 14:10:00 09/12/22 14:10:00 Time Out 09/12/22 14:30:00 09/12/22 14:30:00 09/12/22 14:30:00 Procedure/Preference IR Drainage Cath IR Drainage Cath IR Drainage Cath Card Injection for Eval SN Injection for Eval SN Injection for Eval SN Last Modified By: Juliocesar Mo Megan R Rad Fierstos, Megan R Windmill Mechanic 09/12/22 14:30:28 Tech 09/12/22 14:30:28 Tech 09/12/22 14:30:28 Entry 4 Case Attendee Brandie Mendez Windmill Mechanic Role Performed Wire Weaver 1 Details Time In 09/12/22 14:10:00 Time Out 09/12/22 14:30:00 Procedure/Preference IR Drainage Cath Card Injection for Eval SN Last Modified By: Juliocesar Mo Windmill Mechanic 09/12/22 14:30:28 Radiology Procedures- IR Entry 1 Procedure/Preference IR Drainage Cath Actual Procedure ir drain cath inj for Card Injection for Eval SN eval sn Primary Procedure Yes Primary Surgeon RAMIN SAMPSON MD Anesthesia/Sedation None Type Additional Procedure Times Start 09/12/22 14:14:00 Stop 09/12/22 14:25:00 Specialty Service SN Radiology Procedure EBL 0 mL Last Modified By: Juliocesar Mo R Windmill Mechanic 09/12/22 14:30:33 Radiology Procedure Details - IR Entry 1 Radiology Sedation Case Times Sedation Total Time 0 Radiology - Fluid/Drainage Radiology Contrast Contrast Used? Yes Dose 10 mL Medication OMNIPAQUE 300 50ML 10/PK Y-530 [facility] 5831-7407-97 Radiology Flouroscopy Fluoroscopy Used? Yes Fluoro Dose [...] the drain. Last Modified By: Juliocesar Mo R Windmill Mechanic 09/12/22 14:34:10 General Case Data - IR Entry 1 Case Information Room IR 18 Case Level IR Level 2 Wound Class None Specialty SN Radiology Procedure ASA Class None Diagnosis Preop Diagnosis LLQ Seroma Postop Same As Preop Yes Postop Diagnosis LLQ Seroma Last Modified By: Juliocesar Mo R Windmill Mechanic 09/12/22 14:17:00 Procedure Case Times- IR Entry 1 Patient In Procedure Patient In OR 09/12/22 14:10:00 Patient Out of OR 09/12/22 14:30:00 Procedure Start/Stop Procedure Start Time 09/12/22 14:14:00 Procedure Stop Time 09/12/22 14:25:00 Last Modified By: Juliocesar Mo R Windmill Mechanic 09/12/22 14:30:24 Immediate Post Procedure Note - IR Entry 1 Immediate Post Yes Findings Successful drain cath Procedure Note sclerosis w/ etoh 9 ml displayed for Physician to review Closure Technique Closure Technique Other than Primary Last Modified By: Juliocesar oM R Windmill Mechanic 09/12/22 14:30:14 Immediate Post Procedure Note - IR Signed By: RAMIN SAMPSON MD 09/12/22 14:27 Allergy Information- IR Entry 1 Allergies Reviewed? Yes Allergies Reviewed Patient With Last Modified By: Juliocesar Mo Windmill Mechanic 09/12/22 14:12:52 Radiology Protocols/Time Out- IR Entry [...] results are properly Tech, Vanessa, labeled and Yolia Devang Windmill Mechanic appropriately displayed, Alcohol based prep dry Instrument Sterility Team Members Vadim Berrios Verifying Sterility Procedure IR Drainage Cath Injection for Eval SN Last Modified By: Juliocesar Mo R Windmill Mechanic 09/12/22 14:15:05 Skin Prep- IR Entry 1 Procedure IR Drainage Cath Injection for Eval SN Skin Prep Prep Area Abdomen Side Left By Vadim Berrios Prep Agents Chloraprep Hair Removal Method N/A Last Modified By: Juliocesar Mo Windmill Mechanic 09/12/22 14:15:32 Patient Positioning- IR Entry 1 Procedure IR Drainage Cath Body Position OP Supine Injection for Eval SN Feet Uncrossed? Yes Pressure Points n/a Checked Last Modified By: Juliocesar Mo Windmill Mechanic 09/12/22 14:15:44 Radiology Procedure Plan - IR [...] symptoms of electrical injury. Outcomes Met? Yes Proof Plate Maker Juliocesar Mo [employer] Procedure Plan Last Modified By: Juliocesar Mo Glassful 09/12/22 14:16:26 Case Comments Finalized By: Jluiocesar Mo Tech Document Signatures Signed By: Juliocesar Mo Glassful 09/12/22 14:34 [facility] [id number] Summary of episode note Discharge Instructions Thank you for allowing [facility] to assist you with your healthcare needs. [...] medication providers or retail pharmacies. Education Materials [place] Radiology Procedure/Biopsy Discharge Instructions Interventional Radiology [facility] Imaging Services [facility] [place] [address] Today, you had a . This procedure/biopsy [...] 1 to 2 days following the procedure. Zzrx-lon-sfegbkz pain medication should be used for pain [...] instruction below: 8:00 am- 5:00 pm call [phone] After 5:00 pm call [phone] After 24 hours, contact the physician who [...] to receive it can visit one of [facility] vaccine clinics. There are many vaccine clinic locations within the [facility]. For locations and available times, please visit [email or web address]/. It is important to note that some COVID mobile vaccine clinics are held outdoors and may be canceled in rainy or stormy conditions. To learn more about pediatric vaccinations (ages 5-11), we invite you to visit the [facility] webpage. https://www.[facility].org/pages/5515-Kiylr-Qcykxggehxm-Fsvftlupxp-Sxjcg-Yiw stions.htmlTo learn more about the COVID-19 vaccine, we invite you to visit the CDC website for a list of frequently asked questions. https://www.cdc.gov/coronavirus/2019-ncov/vaccines/faq.html [facility] Patient Portal Access Instructions: Stay connected with your healthcare team and access your personal medical information anytime with the [facility] Patient Portal.If you would like a full copy of your medical records, please contact the [facility] Medical Records Department, Friday through Friday between 8a.m. and 4:30p.m. Please follow the directions below to access the portal: 1.Access the email account you provided upon registration to the hospital.2.Look for an invitation email from [facility].3.Open the email and access the invitation link: Accept Invitation to [facility]andy[employer]Ox4.Fill in the required vegas to create your account. Sign into www.[employer] with your username and password that you [...] you will allow to register on the [employer] Patient Portal for access to your information. You can also access the [facility] Patient Portal on the [employer]. Simply click on Health Records under [facility] and then click on the Wandy logo. [...] Call your local pharmacy or go to http://bit.ly/1Z5Zx5o to find one close to you.3.Make use of household items: Use cat litter or old coffee grounds to dispose medications if other options arenot available. Mix your drugs with these household products, seal them in an airtight container andthrow it into the garbage. Call [facility]: [phone] to be sure your drugs can be [...] aware that I should contact my doctor. Patient/Engineering Executive Signature: Date/Time: Relationship to Patient: Witness Name/Signature: Date/Time: [facility] [id number] Evaluation + Plan noteExtracted from: Title:IR pre [...] paper, which has been scanned into the QuVIS/[employer] system. _ Future Scheduled Tests Laboratory* Basic Metabolic Panel 11/23/21 * Carbamazepine Level 11/23/21 * Complete Metabolic Panel 11/23/21 [facility] 03-30-2023 History and physical note IR PREPROCEDURE [...] paper, which has been scanned into the QuVIS/RIS system. _ Digitally Signed by MARSHALL CROCKER PA-C on 09/12/2022 01:30 PM [facility] [id number] Evaluation + Plan noteExtracted from: Title:IR pre-procedure [...] 08/28/2022 and can be found in the [facility] ([employer]). Harriet Leonard PA-C Interventional Radiology Pager: [phone] IR dept: [phone] Available on [facility] Future Appointments Appointment Date:09/12/2022 02:00:00 PM Scheduled Provider: Location:IR Appointment Type:IR Drainage Cath Injection for Eval Future Scheduled Tests Laboratory* Basic Metabolic Panel 11/23/21 * Carbamazepine Level 11/23/21 * Complete Metabolic Panel 11/23/21 [facility] 03-23-2023 Hospital Discharge instructions Patient Education 09/05/2022 11:49:33 Radiology- Procedure/Biopsy 09/29/2019 (CUSTOM) [place] Radiology Procedure/Biopsy Discharge Instructions Interventional Radiology [facility] Imaging Services [address] [place] [address] Today, you had a Drain insertion . [...] 1 to 2 days following the procedure. Xeqy-hsj-jmhaseb pain medication should be used for pain [...] instruction below: 8:00 am- 5:00 pm call [phone] After 5:00 pm call [phone] After 24 hours, contact the physician who [...] with primary care provider Address:Unknown When: Unknown [facility] 03-23-2023 Note* IBETH Regalado Riley: SIGN, AUTHOR, PERFORM Event Display: IR Procedure Record Authored Date: [id number] IR Procedure Record Summary Primary Physician: ROSHNI FLORES PA-C Finalized Date/Time: 09/05/22 11:48:45 Pt. Name: PATRICK KOROMA /Sex: 1980 Male Med Rec #: [id number] Physician: Financial #: [id number] Pt. Type: O Room/Bed: / Admit/Disch: 09/05/22 [...] Reaction Type Allergy Allergy Last Modified By: IBTEH Skelton RN James M 08/10/13 02:22:39 09/05/17 22:20:56 Case Attendance- IR Entry 1 Entry 2 Entry 3 Case Attendee ROSHNI FLORES Jacque M. Allen, Windmill MechanicVerito Joe PA-C Role Performed Primary Surgeon Scrub [...] 4 Case Attendee IBETH Regalado Role Performed Wire Weaver 1 Details Time In 09/05/22 11:21:00 Time [...] Out Jus ZARATE Jacque Relevant images and Fermín Mejía Rad Tech results are properly Sabine [...] Radiology - Action Plan Outcomes Met? Yes Proof Plate Maker IBETH Regalado Completing Procedure Plan Last Modified By: IBETH Regalado 09/05/22 11:26:48 Case Comments <None> Finalized By: IBETH Regalado Document Signatures Signed By: IBETH Regalado 09/05/22 11:48 [facility] 03-23-2023 History and physical note IR PREPROCEDURE [...] 08/28/2022 and can be found in the [facility] ([employer]). Harriet Leonard PA-C Interventional Radiology Pager: [phone] dept: [phone] Available on Cortext Digitally Signed by HARRIET LEONARD PA-C on 09/05/2022 11:54 AM Digitally Signed by ESAU LOVE MD on 09/05/2022 03:20 PM [facility] [id number] Summary of episode note Discharge Instructions Thank you for allowing [facility] to assist you with your healthcare needs. [...] medication providers or retail pharmacies. Education Materials [place] Radiology Procedure/Biopsy Discharge Instructions Interventional Radiology [facility] Imaging [address] [address] Today, you had a Drain insertion . [...] 1 to 2 days following the procedure. Okhb-bij-wgqziry pain medication should be used for pain [...] instruction below: 8:00 am- 5:00 pm call [phone] After 5:00 pm call [phone] After 24 hours, contact the physician who [...] to receive it can visit one of [facility] vaccine clinics. There are many vaccine clinic locations within the [facility]. For locations and available times, please visit https://gettheshot.[email or web address].[place].gov/. It is important to note that some COVID mobile vaccine clinics are held outdoors and may be canceled in rainy or stormy conditions. To learn more about pediatric vaccinations (ages 5-11), we invite you to visit the [facility] webpage. https://www.[facility].org/pages/5753-Smixp-Eovlrmoaqly-Rlajdllnog-Wlunn-Foc stions.htmlTo learn more about the COVID-19 vaccine, we invite you to visit the CDC website for a list of frequently asked questions. https://www.cdc.gov/coronavirus/2019-ncov/vaccines/faq.html [facility] Patient Portal Access Instructions: Stay connected with your healthcare team and access your personal medical information anytime with the [facility] Patient Portal.If you would like a full copy of your medical records, please contact the [facility] Medical Records Department, Friday through Friday between 8a.m. and 4:30p.m. Please follow the directions below to access the portal: 1.Access the email account you provided upon [facility] to the [facility].2.Look for an invitation email from [facility].3.Open the email and access the invitation link: Accept Invitation to [facility]4.Fill in the required vegas to create your account. Sign into www.[employer] with your username and password that you [...] you will allow to register on the [facility] Patient Portal for access to your information. You can also access the [facility] Patient Portal on the [employer] yen. Simply click on Health Records under [employer] and then click on the [employer] logo. HOW TO SAFELY DISPOSE OF PRESCRIPTION [...] Call your local pharmacy or go to http://bit.ly/0U1Gy3n to find one close to you.3.Make use of household items: Use cat litter or old coffee grounds to dispose medications if other options arenot available. Mix your drugs with these household products, seal them in an airtight container andthrow it into the garbage. Call [facility]: [phone] to be sure your drugs can be [...] aware that I should contact my doctor. Patient/Engineering Executive Signature: Date/Time: Relationship to Patient: Witness Name/Signature: Date/Time[id number] Note IR Procedure Record Summary Primary Physician: ROSHNI FLORES PA-C Finalized Date/Time: 09/05/22 11:48:45 Pt. Name: PTARICK KOROMA /Sex: 1980 Male Med Rec #: [id number] Physician: Financial #: [id number] Pt. Type: O Room/Bed: / Admit/Disch: 09/05/22 [...] Case Attendee ROSHNI FLORES Jacque M. Allen, Windmill MechanicVerito Joe PA-C Role Performed Primary Surgeon Scrub [...] 4 Case Attendee IBETH Regalado Role Performed Wire Weaver 1 Details Time In 09/05/22 11:21:00 Time [...] Out Jus ZARATE Jacque Relevant images and Fermín Mejía, Windmill Mechanic results are properly Sabine Joe RN Corey [...] Radiology - Action Plan Outcomes Met? Yes Proof Plate Maker IBETH Regalado Completing Procedure Plan Last Modified By: IBETH Regalado 09/05/22 11:26:48 Case Comments Finalized By: IBETH Regalado Document Signatures Signed By: IBETH Regalado 09/05/22 11:48 [id number] Hospital Discharge instructions Patient Education 08/28/2022 21:50:43 [...] up Rapid heart rate Shortness of breath [phone] [employer]. [address] [place] [address], [place] [address]. All rights reserved. This information is not intended as a substitute for professional medical care. Always follow yourhealthcare professional's instructions. Follow Up Care 08/28/2022 19:04:00 With:AARON DUQUE MD, Surgery Address: [address] [facility] [place] [address]- [phone] When:2-4 days [facility] 03-15-2023 Emergency department Discharge summary Discharge Instructions Thank you for allowing [facility] to assist you with your healthcare needs. The following is importantdischarge information regarding your hospital visit. Diagnosis from Today's Visit Seroma Abdominal pain What to Do Next Instructions from Your Care Team No qualifying data available. Post Acute Orders No qualifying data available. You Need to Schedule the Following Appointments Follow Up with AARON DUQUE MD, Surgery When Within 2-4 days Where: [address] [facility] [address] [facility] [address]- [phone] Allergies Keflex Keppra (Rash) Tape, Paper (Rash) morphine (Rash) naproxen Medications Please ask your primary doctor or pharmacist before taking any other medication not listed, including over the counter drugs, herbal medications, vitamins and or supplements as they may interact withyour home medications. What How Much When Why Instructions Last Dose New acetaminophen-hydrocodone (Elsah 325- 5 mg oral tablet) 1 tab(s) [...] up Rapid heart rate Shortness of breath [phone] [employer]. [address] [place] [address], [place] [address]. All rights reserved. This information is not intended as a substitute for professional medical care. Always follow yourhealthcare professional's instructions. Additional Information VACCINATE! IT SAVES LIVES! Members of the community who have not yet received the COVID-19 vaccine and would like to receive it can visit one of [facility] vaccine clinics. There are many vaccine clinic locations within the State. For locations and available times, please visit www.gettheshot.coronavirus.[place].gov/. It is important to note that some COVID mobile vaccine clinics are held outdoors and may be canceled in rainy or stormy conditions. To learn more about pediatric vaccinations (ages 5-11), we invite you to visit the [facility] webpage. https://www.[facility].org/pages/0525-Hmmbi-Zlkaxrgkxgt-Vpvglsyyun-Nirkn-Ups stions.htmlTo learn more about the COVID-19 vaccine, we invite you to visit the CDC website for a list of frequently asked questions. https://www.cdc.gov/coronavirus/2019-ncov/vaccines/faq.html [facility] Patient Portal Access Instructions: Stay connected with your healthcare team and access your personal medical information anytime with the [facility] Patient Portal. If you would like a full copy of your medical records please contact the [facility] Medical Records Department Friday through Friday between 8a.m. and 4:30p.m. Please follow the directions below to access the portal: 1.Access the email account you provided upon registration to the hospital.2.Look for an invitation email from [facility].3.Open the email and access the invitation link: Accept Invitation to [facility]4.Fill in the required vegas to create your account. Sign into www.[employer] with your username and password that you [...] you will allow to register on the [facility] Patient Portal for access to your information. You can also access the [facility] Patient Portal on the [employer] Simply click on Health Records under [facility] and then click on the [employer] logo. [...] Call your local pharmacy or go to http://I Like My Waitress.[employer]/2C0Pp8t to find one close to you.3.Make use of household items: Use cat litter or old coffee grounds to dispose medications if other options arenot available. Mix your drugs with these household products, seal them in an airtight container andthrow it into the garbage. Call [facility]: [phone] to be sure your drugs can be [...] aware that I should contact my doctor. Patient/Engineering Executive Signature: Date/Time: Relationship to Patient: Witness Name/Signature: Date/Time: [facility]03-15-2023 Note ORIGINAL EXAMINATION: CT OF THE ABDOMEN [...] Sign Date: 08/28/2022 9:32:42 PM Ordering Provider: [facility]03-15-2023 Note ORIGINAL EXAMINATION: CT OF THE ABDOMEN [...] up Rapid heart rate Shortness of breath [phone] [employer]. [address] [place] [address]. All rights reserved. This information is not intended as a substitute for professional medical care. Always follow yourhealthcare professional's instructions. Follow Up Care 08/18/2022 11:30:43 With:AARON DUQUE MD, Surgery Address: [address] [facility] [place] [address]- [phone] When:2-4 days [facility] 03-05-2023 Note ORIGINAL EXAMINATION: CT OF THE [...] Date: 08/18/2022 4:08:21 PM Ordering Provider: JONELLE GERARD [facility] [id number] Emergency department Discharge summary Discharge Instructions Thank you for allowing [facility] to assist you with your healthcare needs. [...] Surgery When Within 2-4 days Where: [address] [facility] [place] [phone] Allergies Keflex Keppra (Rash) Tape, Paper (Rash) morphine (Rash) naproxen Medications Please ask your primary doctor or pharmacist before taking any other medication not listed, including over the counter drugs, herbal medications, vitamins and or supplements as they may interact withyour home medications. What How Much When Why Instructions Last Dose New acetaminophen-hydrocodone (Elsah 325- 5 mg oral tablet) 1 tab(s) [...] up Rapid heart rate Shortness of breath 6988-6398 [employer]. [address] [place] [address]. All rights reserved. This information is not intended as a substitute for professional medical care. Always follow yourhealthcare professional's instructions. Additional Information VACCINATE! IT SAVES LIVES! Members of the community who have not yet received the COVID-19 vaccine and would like to receive it can visit one of [facility] vaccine clinics. There are many vaccine clinic locations within the [facility]. For locations and available times, please visit www.gettheshot.coronavirus.[place].gov/. It is important to note that some COVID mobile vaccine clinics are held outdoors and may be canceled in rainy or stormy conditions. To learn more about pediatric vaccinations (ages 5-11), we invite you to visit the [facility] webpage. https://www.[facility].org/pages/1965-Ciwyd-Twcczaijgru-Eaxulgziji-Egaed-Nrd stions.htmlTo learn more about the COVID-19 vaccine, we invite you to visit the CDC website for a list of frequently asked questions. https://www.cdc.gov/coronavirus/2019-ncov/vaccines/faq.html [facility] Patient Portal Access Instructions: Stay connected with your healthcare team and access your personal medical information anytime with the [facility] Patient Portal. If you would like a full copy of your medical records please contact the [facility] Medical Records Department Friday through Friday between 8a.m. and 4:30p.m. Please follow the directions below to access the portal: 1.Access the email account you provided upon registration to the [facility].2.Look for an invitation email from [facility].3.Open the email and access the invitation link: Accept Invitation to [facility]4.Fill in the required vegas to create your account. Sign into www.[employer] with your username and password that you [...] you will allow to register on the [facility] Patient Portal for access to your information. You can also access the [facility] Patient Portal on the [employer] Simply click on Health Records under [facility] and then click on the [employer] logo. HOW TO SAFELY DISPOSE OF PRESCRIPTION [...] Call your local pharmacy or go to http://I Like My Waitress.[employer]/2F1As9f to find one close to you.3.Make use of household items: Use cat litter or old coffee grounds to dispose medications if other options arenot available. Mix your drugs with these household products, seal them in an airtight container andthrow it into the garbage. Call [facility]: [phone] to be sure your drugs can be [...] aware that I should contact my doctor. Patient/Engineering Executive Signature: Date/Time: Relationship to Patient: Witness Name/Signature: Date/Time: [facility] [id number] Note ORIGINAL EXAMINATION: CT OF THE ABDOMEN [...] Date: 08/18/2022 4:08:21 PM [facility]ing [facility] Discharge instructions Patient Education 07/22/2022 13:14:21 [...] stores. You don t need a prescription. [phone] [employer]. [address] [place] [address]. All rights reserved. This information is not intended as a substitute for professional medical care. Always follow yourhealthcare professional's instructions. Follow Up Care 07/22/2022 10:03:39 With:Call Physician Referral Address:Unknown When:2-4 days With:Follow up with primary care provider Address:Unknown When:2-4 days [facility] 02-06-2023 Note Discharge Instructions Thank you for allowing [facility] to assist you with your healthcare needs. [...] Why Instructions Last Dose Unchanged acetaminophen- hydrocodone (Elsah 325- 5 mg oral tablet) 1 tab(s) [...] stores. You don t need a prescription. 0996-6333 [employer]. [address] [place] [address], [place] [address]. All rights reserved. This information is not intended as a substitute for professional medical care. Always follow yourhealthcare professional's instructions. Additional Information VACCINATE! IT SAVES LIVES! Members of the community who have not yet received the COVID-19 vaccine and would like to receive it can visit one of [facility] vaccine clinics. There are many vaccine clinic locations within the [facility]. For locations and available times, please visit www.gettheshot.coronavirus.[place].org. It is important to note that some COVID mobile vaccine clinics are held outdoors and may be canceled in rainy orstormy conditions. To learn more about pediatric vaccinations (ages 5-11), we invite you to visit the [facility] webpage. https://www.[facility].org/pages/1467-Bcqdw-Oolaaqdgfmo-Ksuncxxbrh-Etwiv-Xgp stions.htmlTo learn more about the COVID-19 vaccine, we invite you to visit the [facility] website for a list of frequently asked questions. https://[employer]/assets/Wnykgcco-vgz-Bpczbhtn/figkg-Liztiyr-Zupdafrfqd _Asked-Questions.pdf [facility] Patient Portal Access Instructions: Stay connected with your healthcare team and access your personal medical information anytime with the [facility] Patient Portal. If you would like a full copy of your medical records please contact the [facility] Medical Records Department Friday through Friday between 8a.m. and 4:30p.m. Please follow the directions below to access the portal: 1.Access the email account you provided upon registration to the hospital.2.Look for an invitation email from [facility].3.Open the email and access the invitation link: Accept Invitation to [facility]4.Fill in the required vegas to create your account. Sign into www.[employer] with your username and password that you [...] you will allow to register on the [facility] Patient Portal for access to your information. You can also access the [facility] Patient Portal on the [employer] yen. Simply click on Health Records under [facility] and then click on the [employer] logo. [...] Call your local pharmacy or go to http://I Like My Waitress.[employer]/0W5Eg2k to find one close to you.3.Make use of household items: Use cat litter or old coffee grounds to dispose medications if other options arenot available. Mix your drugs with these household products, seal them in an airtight container andthrow it into the garbage. Call [facility]: [phone] to be sure your drugs can be [...] aware that I should contact my doctor. 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 Blanco Shaw History of Present Illness 42-year-old male who underwent an open repair of a recurrent umbilical/ventral hernia with anteriorcomponent separation here at [facility] 4 days ago. The patient states that [...] He admits that he was taking his Elsah on schedule every 6 hours and not [...] vomiting due to the regular use of Elsah taking it as scheduled every 6 hours [...] works for him. Avoid using any further Elsah unless absolutely necessary and take regular doses of Tylenol alternating with ibuprofen. As his nausea resolves hopefully over the next couple days he can reintroduce solid food. Slowly. He will have a follow-up on in the office. A prescription for Zofran has been sent to his pharmacy which he can pick up worker and use as needed. I donot think [...] Medications Inpatient No active inpatient medications Home Elsah 325- 5 mg oral tablet, 1 tab(s), [...] AARON DUQUE MD on 07/22/2022 01:23 PM [facility]02-06-2023 Note ORIGINAL EXAMINATION: CT OF THE ABDOMEN [...] Sign Date: 07/22/2022 11:41:58 AM Ordering Provider: [facility]02-06-2023 Note ORIGINAL EXAMINATION: CT OF THE [...] Sign Date: 07/22/2022 11:41:58 AM Ordering Provider: [facility]02-02-2023 Hospital Discharge instructions Patient Education 07/18/2022 11:53:26 [...] 06/21/2019 Document Revised: 06/21/2019 Document Reviewed: 06/21/2019 [employer] Patient Education 2019 [employer]. 07/18/2022 11:53:21 How to Use an Incentive [...] as possible. If the spirometer includes a track and field coach indicator, use this to guide you [...] 10/13/2007 Document Revised: 06/25/2018 Document Reviewed: 04/15/2018 [employer] Patient Education 2020 [employer]. 07/18/2022 11:45:57 Surgical Drain Home Care Surgical [...] placed at your back, or any other eifv-it-wqhuk area, ask another person to assist you [...] and water are not available, use hand bookkeeping teacher. 3.Remove the old dressing. Avoid using scissors [...] and water are not available, use hand bookkeeping teacher. 3.Loosen any pins or clips that hold [...] placed at your back, or any other wujp-ha-tnpef area, ask another person to assist you. Contact your health care provider if you have redness, swelling, or pain around your drain area. This information is not intended to replace advice given to you by your health care provider. Make sure you discuss any questions you have with your health care provider. Document Released: 05/30/2001 Document Revised: 07/07/2019 Document Reviewed: 07/07/2019 [employer] Patient Education 2019 [employer]. 07/18/2022 11:45:56 8- Ryan Pantoja Drain (03/2018)(CUSTOM) [...] Document Reviewed: 06/03/2014 ExitCare Patient Information 2015 [employer]. This information is not intended to replace [...] garbage bag. Soap and water, or hand bookkeeping teacher. Wound cleanser or salt-water solution (saline). New [...] soap and water are notavailable, use hand bookkeeping teacher. 3.Set up a clean station for wound [...] soap and water are notavailable, use hand bookkeeping teacher. Clean your wound Wear gloves, protective clothing, [...] soap and water are notavailable, use hand bookkeeping teacher. Apply new dressing Wear gloves, protective clothing, [...] soap and water are notavailable, use hand bookkeeping teacher. 8.Turn the pump back on. The sponge dressing should collapse. Do not change the settings on the machine without talking to a health care provider. 9.Replace the container in the pump that collects fluid if it is full. Replace the container per the chiropractic doctor's instructions or at least once a week, [...] all clamps are open. Do not use zbbt-hgk-vdedpfk medicated or antiseptic creams, sprays, liquids, or [...] 08/24/2012 Document Revised: 09/24/2019 Document Reviewed: 08/20/2019 [employer] Patient Education 2020 [employer]. 07/18/2022 11:39:25 Nausea and Vomiting, Adult Nausea [...] water added (diluted fruit juice). Eat bland, vsfk-zo-zaqyqe foods in small amounts as you are able. These foods include bananas, applesauce, rice, lean meats, toast, and crackers. Avoid fluids that contain a lot of sugar or caffeine, such as energy drinks, sports drinks, and soda. Avoid alcohol. Avoid spicy or fatty foods. General instructions Take eunk-vux-uxnaevp and prescription medicines only as told by your health care provider. Drink enough fluid to keep your urine pale yellow. Wash your hands often using soap and water. If soap and water are not available, use hand bookkeeping teacher. Make sure that all people in your [...] eating and drinking to prevent dehydration. Take bkfo-ybb-yhsrhiy and prescription medicines only as told by [...] 06/02/2006 Document Revised: 09/24/2019 Document Reviewed: 11/10/2018 [employer] Patient Education 2020 [employer]. 07/18/2022 11:39:15 Monitored Anesthesia Care, Care After [...] before eating solid foods. General instructions Take tfnt-tir-btoitcw and prescription medicines only as told by [...] 09/22/2016 Document Revised: 08/31/2018 Document Reviewed: 09/22/2016 [employer] Patient Education 2020 [employer]. 07/18/2022 11:39:09 Open Hernia Repair, Adult, Care [...] and water are not available, use hand bookkeeping teacher. ?Change your dressing as told by your [...] your urine clear or pale yellow. ?Take nqyu-vrp-gylpszg or prescription medicines. ?Eat foods that are high in fiber, such as fresh fruits and vegetables, whole grains, and beans. ?Limit foods that are high in fat and processed sugars, such as fried and sweet foods. Take gmux-kcr-cikidmt and prescription medicines only as told by [...] 12/20/2005 Document Revised: 05/15/2018 Document Reviewed: 11/13/2016 [employer] Patient Education 2020 [employer]. Follow Up Care 07/02/2022 10:17:34 With:AARON DUQUE MD, Surgery Address: [address] [address] [phone] When:07/25/2022 10:00:00 Comments:Follow-up as scheduled [facility] 02-02-2023 Summary of episode note Discharge Instructions Thank you for allowing [facility] to assist you with your healthcare needs. The following is importantdischarge information regarding your hospital visit. Your Care Team AARON DUQUE MD Your Diagnosis Acute post-operative pain What to do next Follow Up Appointments Follow Up with AARON DUQUE MD, Surgery When In 2 weeks Why: Call office to schedule follow up appointment. Where: [address] [place] [address] [phone] The Following Activity and Diet Have Been Ordered for You Discharge Activity - Ordered -- Sexual Keats Restricted No bending, twisting, crawling or squatt, [...] When Why Instructions Last Dose New acetaminophen-hydrocodone (Elsah 325- 5 mg oral tablet) 1 tab(s) by mouth Every 4 hours as needed for Pain, scale 4-6 Acute post-operative pain Duration: 7 Days Pickup at [facility]/pharmacy #[id number] Unchanged carBAMazepine (TEGretol 200 mg oral tablet) 3 tab(s) by mouth Two (2) times a day Seizure Post-operative state s/p umbilical hernia repair, possible seizure following surgery Pharmacy Information [facility]/pharmacy #[id number]: [address] [place], [place] [phone] Please take this list to your next [...] 06/21/2019 Document Reviewed: 06/21/2019 [employer] Patient Education 2019 [employer] How To Use an Incentive Spirometer [...] as possible. If the spirometer includes a track and field coach indicator, use this to guide you [...] 10/13/2007 Document Revised: 06/25/2018 Document Reviewed: 04/15/2018 [employer] Patient Education 2020 [employer]. Surgical Drain Home Care Surgical drains are [...] placed at your back, or any other gvzx-ks-ghzhb area, ask another person to assist you [...] and water are not available, use hand bookkeeping teacher. 3. Remove the old dressing. Avoid using [...] and water are not available, use hand bookkeeping teacher. 3. Loosen any pins or clips that [...] placed at your back, or any other djre-is-tgodi area, ask another person to assist you. [...] 07/07/2019 Document Reviewed: 07/07/2019 Elsevier Patient Education 2020 [employer] Ryan Pantoja Drain Patient Education After surgery, you may notice a bulb-like drain, called a Sanjeev (ABDOULAYE) connected to tubing coming from your [...] Document Reviewed: 06/03/2014 ExitCare Patient Information 2014 [employer]. This information is not intended to replace [...] garbage bag. Soap and water, or hand bookkeeping teacher. Wound cleanser or salt-water solution (saline). New [...] and water are not available, use hand bookkeeping teacher. 3. Set up a clean station for [...] and water are not available, use hand bookkeeping teacher. Clean your wound Wear gloves, protective clothing, [...] and water are not available, use hand bookkeeping teacher. Apply new dressing Wear gloves, protective clothing, [...] and water are not available, use hand bookkeeping teacher. 8. Turn the pump back on. The sponge dressing should collapse. Do not change the settings on the machine without talking to a health care provider. 9. Replace the container in the pump that collects fluid if it is full. Replace the container per the chiropractic doctor's instructions or at least once a week, [...] all clamps are open. Do not use lzrf-asm-jgglndx medicated or antiseptic creams, sprays, liquids, or [...] 08/24/2012 Document Revised: 09/24/2019 Document Reviewed: 08/20/2019 [employer] Patient Education 2020 [employer]. Nausea and Vomiting, Adult Nausea is the [...] water added (diluted fruit juice). Eat bland, zupd-ua-btgndd foods in small amounts as you are able. These foods include bananas, applesauce, rice, lean meats, toast, and crackers. Avoid fluids that contain a lot of sugar or caffeine, such as energy drinks, sports drinks, and soda. Avoid alcohol. Avoid spicy or fatty foods. General instructions Take gxyr-zyr-foiarte and prescription medicines only as told by your health care provider. Drink enough fluid to keep your urine pale yellow. Wash your hands often using soap and water. If soap and water are not available, use hand bookkeeping teacher. Make sure that all people in your [...] eating and drinking to prevent dehydration. Take ohne-tbz-udcyfzp and prescription medicines only as told by [...] 06/02/2006 Document Revised: 09/24/2019 Document Reviewed: 11/10/2018 Elsevier Patient Education 2020 [employer] Monitored Anesthesia Care, Care After These instructions [...] before eating solid foods. General instructions Take ptgj-uaq-huumgdk and prescription medicines only as told by [...] 09/22/2016 Document Revised: 08/31/2018 Document Reviewed: 09/22/2016 [employer] Patient Education 2020 [employer]. Open Hernia Repair, Adult, Care After This [...] and water are not available, use hand bookkeeping teacher. ? Change your dressing as told by [...] urine clear or pale yellow. ? Take vjrp-vve-altohqa or prescription medicines. ? Eat foods that are high in fiber, such as fresh fruits and vegetables, whole grains, and beans. ? Limit foods that are high in fat and processed sugars, such as fried and sweet foods. Take ytak-sny-fpbgptx and prescription medicines only as told by [...] 12/20/2005 Document Revised: 05/15/2018 Document Reviewed: 11/13/2016 [employer] Patient Education 2020 [employer] Additional Information VACCINATE! IT SAVES LIVES! Members of the community who have not yet received the COVID-19 vaccine and would like to receive it can visit one of [facility] vaccine clinics. There are many vaccine clinic locations within the [facility]. For locations and available times, please visit [email or web address] It is important to note that some COVID mobile vaccine clinics are held outdoors and may be canceled in rainy or stormy conditions. To learn more about pediatric vaccinations (ages 5-11), we invite you to visit the [facility] webpage. https://www.[email or web address]/pages/[email or web address]-Mbsmr-Mfnnmjgxssv-Pujzpftyhv-Ectas-Gfb stions.htmlTo learn more about the COVID-19 vaccine, we invite you to visit the [employer] website for a list of frequently asked questions. [email or web address]/[email or web address]-[email or web address]/qwspe-Efvkirh-[email or web address] _Asked-Questions.pdf [facility] Patient Portal Access Instructions: Stay connected with your healthcare team and access your personal medical information anytime with the [facility] Patient Portal.If you would like a full copy of your medical records, please contact the [facility] Medical Records Department, Friday through Friday between 8a.m. and 4:30p.m. Please follow the directions below to access the portal: 1.Access the email account you provided upon registration to the [facility].2.Look for an invitation email from [facility].3.Open the email and access the invitation link: Accept Invitation to [facility]4.Fill in the required vegas to create your [...] you will allow to register on the [facility] Patient Portal for access to your information. You can also access the [facility] Patient Portal on the [employer] yen. Simply click on Health Records under [facility] and then click on the [facility] logo. HOW TO SAFELY DISPOSE OF PRESCRIPTION MEDICATIONS Please use one of the following methods to safely dispose of your unused medications. 1.Use a drug disposal kit: the drug disposal pouch allows you to safely discard your old and unuseddrugs. Ask your nurse to give you one when you are dischar (more content not included)... 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 / SNOMED CT [id number] / Confirmed Fall / SNOMED CT 8151459 / Confirmed Electric shock / SNOMED CT 0704445874 / Confirmed Full dentures / SNOMED CT 664101704 / Confirmed Postprocedural hematoma of skin and subcutaneous tissue following other procedure / SNOMED CT 291511768 / Confirmed Seizure / SNOMED CT 569939352 / Confirmed TIA / SNOMED CT 068043084 / Confirmed Umbilical hernia / SNOMED CT 5983955425 / Confirmed, Active Problems (10) Acid reflux 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 Electric shock Fall Full dentures Postprocedural hematoma of skin and subcutaneous tissue following other procedure Seizure TIA Tobacco use Umbilical hernia Histories Past Medical History: Active TIA (609003167) Acid reflux (134482059) Seizure (995575275) Family History: Congenital heart disease Brother Stroke Mother Father Procedure history: Repair of recurrent ventral hernia (384238884) on 11/22/2021 at 41 Years. History of repair of umbilical hernia (3531374676) in 2019 at 39 Years. Appendectomy (548359477). 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-[facility] Tobacco 2Risk Assessment: High Risk 07/01/2022 Tobacco [...] Signs(last 24 hrs) Last Charted Heart Rate Nleuhzwzi96 bpm (JUL 18 08:50) Resp Rate 18 br/min (JUL 18 06:48) MQJ609 mmHg (JUL 18 08:50) DBP68 mmHg (JUL 18 08:50) Measurements from flowsheet : Measurements 07/18/2022 6:48 EST Height 188 cm Admission Weight 134 kg [place] Body Weight 82.24 kg Admission Body Mass [...] Method N/A 07/18/2022 8:02 EST SN - MS - Medication MARCAINE BUPIVACAINE 0.5% 30ML SN - MS - Route of Administration Local SN - MS - Route of Administration Local SN - MS - By (Single) SN - MS - By (Single) SN - MS - By (Single) SN - MS - By (Single) 07/18/2022 7:57 EST SN - PP - Body Position Supine Standard Intra-op 07/18/2022 7:56 EST SN - PTCare - Anti-thromboembolism Ayla Sequential Compression Device (SCD) 07/18/2022 7:49 EST SN - CAt - Case Attendee SN - CAt - Case Attendee SN - CAt - Case Attendee SN - CAt - Case Attendee SN - CAt - Role Performed ALLERGY AND IMMUNOLOGY SPECIALIST SN - CAt - Role Performed Cdl B Driver 1 07/18/2022 7:30 EST Primary Pain Intensity [...] Surgeon SN - CAt - Role Performed Wire Weaver 1 SN - CAt - Role Performed Scrub 1 07/18/2022 7:12 EST Infectious Disease Symptoms Patient states no symptoms Safety Brochure Information Reviewed Unable to complete [facility] Mcneal Video Viewed No Teaching Evaluation Needs practice/supervision Admission Note-Nursing Same Day Patient History (Modified) 07/18/2022 7:10 EST Lactated Ringers Injection Begin Bag 1,000 mL mL 07/18/2022 6:48 EST Height 188 cm Admission Weight 134 kg [place] Body Weight 82.24 kg Admission Body Mass [...] no difficulties Skin Temperature Warm Skin Description [place], Dry Skin Integrity Intact Mucous Membrane Color [place] IV Present Present Continuous IV Infusions LR [...] Cooperative Orientation Oriented x 4 Allergies Yes Retail Experience Specialist On Yes Consent Form Signed Yes Patient [...] Void 07/18/2022 7:01 . Assessment and Plan [place] Society of Anesthesiologists (ASA) physical status classification: Class III. Anesthetic Preoperative Plan Premedication: intravenous. Anesthetic technique: General. Induction: intravenously. Maintenance airway: Oral endotracheal tube. Postoperative pain management: Per surgeon. Risks discussed: nausea, vomiting, sore throat. Informed consent: signed by patient. Digitally Signed by SOFÍA OROZCO on 07/18/2022 09:03 AM [facility]01-30-2023 Evaluation + Plan note Future Appointments Diagnostic Tests Pending * [facility] Send out (Blood Specimens) 07/15/22 Future Scheduled Tests Laboratory* Basic Metabolic Panel 11/23/21 * Carbamazepine Level 11/23/21 * Complete Metabolic Panel 11/23/21 [facility] 01-30-2023 Hospital Discharge instructions Patient Education 07/15/2022 [...] told. 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 [address] [place] [address], [place] [address]. All rights reserved. This information is not intended as a substitute for professional medical care. Always follow yourhealthcare professional's instructions. Follow Up Care 07/15/2022 00:22:57 With:[facility] GR[facility] Address: When:2-4 days [facility] 01-30-2023 Note Discharge Instructions Thank you for allowing [facility] to assist you with your healthcare needs. The following is importantdischarge information regarding your hospital visit. Diagnosis from Today's Visit Seizure disorder, Seizure Possible Seizure What to Do Next Instructions from Your Care Team No qualifying data available. Post Acute Orders No qualifying data available. You Need to Schedule the Following Appointments Follow Up with CT GRACE When Within 2-4 days Where: Allergies Keflex [...] seizures. In this case, the Department of [employer] will be told. 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 [address] [place] [address], [place] [address]. All rights reserved. This information is not intended as a substitute for professional medical care. Always follow yourhealthcare professional's instructions. Additional Information VACCINATE! IT SAVES LIVES! Members of the community who have not yet received the COVID-19 vaccine and would like to receive it can visit one of [facility] vaccine clinics. There are many vaccine clinic locations within the [facility]. For locations and available times, please visit [email or web address]. It is important to note that some COVID mobile vaccine clinics are held outdoors and may be canceled in rainy orstormy conditions. To learn more about pediatric vaccinations (ages 5-11), we invite you to visit the [facility] webpage. https://www.[email or web address]/pages/3490-Hkzwc-Kpplplqcxwu-Ahyqqjvoeg-Tnvqg-Umd stions.htmlTo learn more about the COVID-19 vaccine, we invite you to visit the [facility] website for a list of frequently asked questions. [email or web address]/[email or web address]-[email or web address]-Byvxsscstd _Asked-Questions.pdf [facility] Patient [facility] Access Instructions: Stay connected with your healthcare team and access your personal medical information anytime with the [employer] Patient Portal. If you would like a full copy of your medical records please contact the [facility] Medical Records Department Friday through Friday between 8a.m. and 4:30p.m. Please follow the directions below to access the portal: 1.Access the email account you provided upon registration to the [facility].2.Look for an invitation email from [facility].3.Open the email and access the invitation link: Accept Invitation to [facility]4.Fill in the required vegas to create your [...] you will allow to register on the [facility] Patient Portal for access to your information. You can also access the [facility] Patient Portal on the [employer] Simply click on Health Records under [facility] and then click on the [facility] logo. [...] Call your local pharmacy or go to http://I Like My Waitress.[employer]/2N9Ka5e to find one close to you.3.Make use of household items: Use cat litter or old coffee grounds to dispose medications if other options arenot available. Mix your drugs with these household products, seal them in an airtight container andthrow it into the garbage. Call [facility]: [phone] to be sure your drugs can be [...] aware that I should contact my doctor. Patient/Engineering Executive Signature: Date/Time: Relationship to Patient: Witness Name/Signature: Date/Time: [facility]01-30-2023 Note ORIGINAL EXAMINATION: CT OF THE HEAD [...] Sign Date: 07/15/2022 1:25:42 AM Ordering Provider: [facility]01-30-2023 Note ORIGINAL EXAMINATION: CT OF THE HEAD [...] Sign Date: 07/15/2022 1:25:42 AM Ordering Provider: [facility]01-13-2023 Hospital Discharge instructions Patient Education 06/27/2022 23:32:40 [...] blood pressure monitors at most pharmacies. The [place] [employer] Association recommends the following guidelines for [...] face You have problems speaking or seeing 5761-4253 [employer]. [address] [place] [address], [place] [address]. All rights reserved. This information is not [...] or as directed by your healthcare provider 9539-1314 [employer]. [address] [place] [address]. All rights reserved. This information is not [...] foods again, start with small amounts of rpaa-gq-sgrpvy, low- fat foods. These include apple sauce, [...] increase stomach acid. Don't use aspirin or djgo-dle-dahazkj pain and fever medicines, if possible. This includes nonsteroidal anti-inflammatory drugs (NSAIDs). Lose excess weight. Finish eating at least 2 hours before you go to bed or lie down. Raise the head of your bed. 0972-2094 [employer]. [address] [place] [address]. All rights reserved. This information is not [...] the referral doctor. With:AARON DUQUE Address: [address] [place] [address]- [phone] Business (1) When:2-4 days Comments:Schedule an appointment for close follow-up.Continue Tylenol for pain as needed.Use Elsah as prescribed for severe pain as needed.Return to the ED if symptoms worsen. [facility] 01-13-2023 Note Discharge Instructions Thank you for allowing [facility] to assist you with your healthcare needs. [...] Continue Tylenol for pain as needed. Use Elsah as prescribed for severe pain as needed. Return to the ED if symptoms worsen. Where: [address] [facility] [address] [facility] [place] [address] [phone] Business (1) Allergies Keflex Keppra (Rash) Tape, Paper (Rash) morphine (Rash) naproxen Medications Please ask your primary doctor or pharmacist before taking any other medication not listed, including over the counter drugs, herbal medications, vitamins and or supplements as they may interact withyour home medications. What How Much When Why Instructions Last Dose New acetaminophen-hydrocodone (Elsah 325- 5 mg oral tablet) 1 tab(s) [...] blood pressure monitors at most pharmacies. The [place] Heart Association recommends the following guidelines for [...] face You have problems speaking or seeing 6774-2060 [employer]. [address] [place] [address]. All rights reserved. This information is not [...] or as directed by your healthcare provider 4638-0886 [employer]. [address] [place] [address], [place] [address]. All rights reserved. This information is not [...] foods again, start with small amounts of lfrw-lk-kecskl, low- fat foods. These include apple sauce, [...] increase stomach acid. Don't use aspirin or yyxl-ueq-trckgrv pain and fever medicines, if possible. This includes nonsteroidal anti-inflammatory drugs (NSAIDs). Lose excess weight. Finish eating at least 2 hours before you go to bed or lie down. Raise the head of your bed. [phone] [employer]. [address] [place] [address], [place] [address]. All rights reserved. This information is not intended as a substitute for professional medical care. Always follow yourhealthcare professional's instructions. Additional Information VACCINATE! IT SAVES LIVES! Members of the community who have not yet received the COVID-19 vaccine and would like to receive it can visit one of [facility] vaccine clinics. There are many vaccine clinic locations within the [facility]. For locations and available times, please visit [email or web address]. It is important to note that some COVID mobile vaccine clinics are held outdoors and may be canceled in rainy orstormy conditions. To learn more about pediatric vaccinations (ages 5-11), we invite you to visit the [employer] [facility] webpage. https://www.[email or web address].org/pages/2640-Clrnl-Jvkfbtrqlba-Fanpvhdulu-Jubeo-Gbl stions.htmlTo learn more about the COVID-19 vaccine, we invite you to visit the [facility] website for a list of frequently asked questions. [email or web address]/[email or web address]-[email or web address] _Asked-Questions.pdf [facility] Patient Portal Access Instructions: Stay connected with your healthcare team and access your personal medical information anytime with the [employer] Patient Portal. If you would like a full copy of your medical records please contact the [facility] Medical Records Department Friday through Friday between 8a.m. and 4:30p.m. Please follow the directions below to access the portal: 1.Access the email account you provided upon registration to the advanced [facility].2.Look for an invitation email from [facility].3.Open the email and access the invitation link: Accept Invitation to [facility]4.Fill in the required vegas to create your account. Sign into www.[employer] with your username and password that you [...] you will allow to register on the [employer] Patient Portal for access to your information. You can also access the [facility] Patient Portal on the [employer] Simply click on Health Records under [facility] and then click on the [employer] logo. HOW TO SAFELY DISPOSE OF PRESCRIPTION [...] Call your local pharmacy or go to http://[employer] Waitress.[employer]/[email or web address] to find one close to you.3.Make use of household items: Use cat litter or old coffee grounds to dispose medications if other options arenot available. Mix your drugs with these household products, seal them in an airtight container andthrow it into the garbage. Call [facility]: [phone] to be sure your drugs can be [...] aware that I should contact my doctor. Patient/Engineering Executive Signature: Date/Time: Relationship to Patient: Witness Name/Signature: Date/Time: [facility]01-12-2023 Note ORIGINAL EXAMINATION: CT OF THE ABDOMEN [...] Sign Date: 06/27/2022 11:27:05 PM Ordering Provider: Y[facility]01-12-2023 Note ORIGINAL EXAMINATION: CT OF THE ABDOMEN [...] Sign Date: 06/27/2022 11:27:05 PM Ordering Provider: YARA [facility]01-05-2023 Hospital Discharge instructions* Discharge Instructions* ERIC Mandel - 06/20/2022 12:31 AM EST Please take medication as prescribed Please follow up with your Physicians as instructed in this discharge paperwork Thank you for choosing [facility] I appreciate your patience Please return to the emergency department if your symptoms worsen, or new symptoms develop as discussed documented in this [facility]01-04-2023 Emergency department Note* ERIC Mandel - 06/19/2022 7:06 PM EST [facility] ED EMERGENCY DEPARTMENT ENCOUNTER Pt Name: [...] patient come from an ECF, SNF, Rehab, Fpc or other Congregate setting: no (If yes [...] HISTORY Past Medical History: Diagnosis Date Seizures ([facility]) SURGICAL HISTORY Past Surgical History: Procedure Laterality [...] more for level 5) ED Triage Vitals [06/19/221935] Temp Heart Rate Resp BP 37.3 C [...] upper and lower extremities bilateral with normal vulnerability assessment analyst strength, normal plantar flexion and dorsiflexion. Skin: Findings: No erythema or rash. Neurological: General: No focal deficit present. Mental Status: He is oriented to person, place, and time. Comments: Cranial Nerves 2-12 are intact without without any neurological deficits Normal gehzhj-oa-xutkfl, zygnfk-cc-aqrn, alternating hands, heel to tong test bilateral [...] none Procedures FINAL IMPRESSION 1. Seizure (CMS/HCC) ([facility]) DISPOSITION/PLAN DISPOSITION Discharge 06/20/2022 12:30:39 AM PATIENT REFERRED TO: [facility] [address] [facility] [address] Schedule an appointment as soon as possible for a visit in 2 days [facility] [address] [facility] [phone] Schedule an appointment as soon as possible for a visit in 1 week [facility] ED [address] [facility] [address] Go to If symptoms worsen DISCHARGE MEDICATIONS: New Prescriptions No medications on file (Please note: Portions of this note were completed with a voice recognition program. Efforts were made to edit thedictations but occasionally words and phrases are mis-transcribed.) Form [id number] ERIC Mandel (electronically signed) Emergency Medicine Provider ERIC Mandel 06/20/22 0034 ERIC Mandel 06/20/22 0038 documented in this [facility]01-04-2023 Physician Emergency department Note* ERIC Mandel - 06/19/2022 7:06 PM EST [facility] ED EMERGENCY DEPARTMENT ENCOUNTER Pt Name: [...] patient come from an ECF, SNF, Rehab, Fpc or other Congregate setting: no (If yes [...] HISTORY Past Medical History: Diagnosis Date Seizures ([facility]) SURGICAL HISTORY Past Surgical History: Procedure Laterality [...] more for level 5) ED Triage Vitals [06/19/221935] Temp Heart Rate Resp BP 37.3 C [...] upper and lower extremities bilateral with normal vulnerability assessment analyst strength, normal plantar flexion and dorsiflexion. Skin: Findings: No erythema or rash. Neurological: General: No focal deficit present. Mental Status: He is oriented to person, place, and time. Comments: Cranial Nerves 2-12 are intact without without any neurological deficits Normal pvnrwu-bl-fevtmb, tovpnn-lf-rxns, alternating hands, heel to tong test bilateral [...] DEPARTMENT COURSE and DIFFERENTIAL DIAGNOSIS/MDM: Vitals: Vitals: 06/19/221935 BP: 126/87 Pulse: 110 Resp: 18 Temp: [...] Discharge 06/20/2022 12:30:39 AM PATIENT REFERRED TO: [facility] [address] [facility] [address] Schedule an appointment as soon as possible for a visit in 2 days [facility] [address] [facility] [address] Schedule an appointment as soon as possible for a visit in 1 week [facility] [address] [facility] [address] Go to If symptoms worsen DISCHARGE MEDICATIONS: New Prescriptions No medications on file (Please note: Portions of this note were completed with a voice recognition program. Efforts were made to edit thedictations but occasionally words and phrases are mis-transcribed.) Form v2016.J.5-cn ERIC Mandel (electronically signed) Emergency Medicine Provider ERIC Mandel 06/20/22 0034 ERIC Mandel 06/20/22 0038 [facility] [employer] Phone: 1(940) 657-718012-17-2022 Hospital Discharge instructions Patient Education 05/31/2022 23:54:43 [...] or as directed by your healthcare provider 5416-2473 [employer]. [address] [place] [address]. All rights reserved. This information is not [...] blue color of the hand or foot 3255-4249 [employer]. [address] [place] [address]. All rights reserved. This information is not intended as a substitute for professional medical care. Always follow yourhealthcare professional's instructions. Follow Up Care 05/31/2022 21:06:21 With:AARON DUQUE Address: [address] [facility] [address] [facility] [place] [address] [phone] Business (1) When:3-7 days Comments:Schedule appointment for follow-up.Use Tylenol or Motrin for pain as needed.Use Elsah as prescribedfor severe pain as needed.Return to the ED if symptoms worsen. [facility] 12-17-2022 Note Discharge Instructions Thank you for allowing [facility] to assist you with your healthcare needs. [...] or Motrin for pain as needed. Use Elsah as prescribed for severe pain as needed. Return to the ED if symptoms worsen. Where: [address] [facility] [address] [facility] [place] [address] [phone] Business (1) Allergies Keflex Keppra (Rash) Tape, Paper (Rash) morphine (Rash) naproxen Medications Please ask your primary doctor or pharmacist before taking any other medication not listed, including over the counter drugs, herbal medications, vitamins and or supplements as they may interact withyour home medications. What How Much When Why Instructions Last Dose New acetaminophen-hydrocodone (Elsah 325- 5 mg oral tablet) 1 tab(s) [...] or as directed by your healthcare provider [phone] [employer]. [address] [place] [address]. All rights reserved. This information is not [...] blue color of the hand or foot 3881-7333 [employer]. [address] [place] [address]. All rights reserved. This information is not intended as a substitute for professional medical care. Always follow yourhealthcare professional's instructions. Additional Information VACCINATE! IT SAVES LIVES! Members of the community who have not yet received the COVID-19 vaccine and would like to receive it can visit one of [facility] vaccine clinics. There are many vaccine clinic locations within the [facility]. For locations and available times, please visit www.[email or web address].org. It is important to note that some COVID mobile vaccine clinics are held outdoors and may be canceled in rainy orstormy conditions. To learn more about pediatric vaccinations (ages 5-11), we invite you to visit the [facility] webpage. https://www.[facility].org/pages/1727-Wmrov-Eewqtazsitp-Imtzpwqdnw-Wysrn-Amk stions.htmlTo learn more about the COVID-19 vaccine, we invite you to visit the [facility] website for a list of frequently asked questions. https://wandy.org/assets/Qqbjxupg-hap-Rmwlzjys/rfccl-Pbyzvju-Znhqefbpuh _Asked-Questions.pdf [facility] Patient Portal Access Instructions: Stay connected with your healthcare team and access your personal medical information anytime with the [facility] Patient Portal. If you would like a full copy of your medical records please contact the [facility] Medical Records Department Friday through Friday between 8a.m. and 4:30p.m. Please follow the directions below to access the portal: 1.Access the email account you provided upon registration to the [facility].2.Look for an invitation email from [facility].3.Open the email and access the invitation link: Accept Invitation to [facility]4.Fill in the required vegas to create your account. Sign into www.[employer] with your username and password that you [...] you will allow to register on the [facility] Patient Portal for access to your information. You can also access the [facility] Patient Portal on the [employer] Simply click on Health Records under [employer] and then click on the [employer] logo. HOW TO SAFELY DISPOSE OF PRESCRIPTION [...] Call your local pharmacy or go to http://I Like My Waitress.[employer]/2I6Aw7o to find one close to you.3.Make use of household items: Use cat litter or old coffee grounds to dispose medications if other options arenot available. Mix your drugs with these household products, seal them in an airtight container andthrow it into the garbage. Call [facility]: [phone] to be sure your drugs can be [...] aware that I should contact my doctor. Patient/Engineering Executive Signature: Date/Time: Relationship to Patient: Witness Name/Signature: Date/Time: [facility] Wandy [id number] Note ORIGINAL EXAMINATION: CT OF THE ABDOMEN [...] Date: 06/01/2022 12:00:43 AM Ordering Provider: YARA [facility]12-16-2022 Note ORIGINAL EXAMINATION: CT OF [...] Date: 06/01/2022 12:00:43 AM Ordering Provider: YARA [facility]12-12-2022 Hospital Discharge instructions Patient Education 05/27/2022 [...] humidified air to open blocked nasal passages. consumer marketing manager a hot shower or usea vaporizer. Be [...] mouth Spotted, red, or very sore throat [phone] [employer]. [address] [place] [address]. All rights reserved. This information is not intended as a substitute for professional medical care. Always follow yourhealthcare professional's instructions. Follow Up Care 05/27/2022 17:56:54 With:Go to emergency room if symptoms worsen Address:Unknown When:2-4 days With:Call Physician Referral Address:Unknown When:2-4 days [facility] 12-12-2022 Note ORIGINAL EXAMINATION: ONE XRAY VIEW [...] 05/27/2022 7:25:51 PM Ordering Provider: LEORA KHAN [facility]12-12-2022 Note Discharge Instructions Thank you for allowing [...] humidified air to open blocked nasal passages. consumer marketing manager a hot shower or usea vaporizer. Be [...] mouth Spotted, red, or very sore throat [phone] [employer]. [address] [place] [address]. All rights reserved. This information is not intended as a substitute for professional medical care. Always follow yourhealthcare professional's instructions. Additional Information VACCINATE! IT SAVES LIVES! Members of the community who have not yet received the COVID-19 vaccine and would like to receive it can visit one of [facility] vaccine clinics. There are many vaccine clinic locations within the [facility]. For locations and available times, please visit www.[email or web address]. It is important to note that some COVID mobile vaccine clinics are held outdoors and may be canceled in rainy orstormy conditions. To learn more about pediatric vaccinations (ages 5-11), we invite you to visit the [facility] webpage. https://www.[facility].org/pages/7564-Lriyo-Iqunefzhyri-Aqopuhpidp-Tykxx-Xdo stions.htmlTo learn more about the COVID-19 vaccine, we invite you to visit the [facility] website for a list of frequently asked questions. https://[facility]/assets/Vodlqpsf-ipc-Xcnjcjcd/qvmcn-Wqyflcz-Boipnvisqx _Asked-Questions.pdf [facility] Patient Portal Access Instructions: Stay connected with your healthcare team and access your personal medical information anytime with the [facility] Patient Portal. If you would like a full copy of your medical records please contact the [facility] Medical Records Department Friday through Friday between 8a.m. and 4:30p.m. Please follow the directions below to access the portal: 1.Access the email account you provided upon registration to the [facility].2.Look for an invitation email from [facility].3.Open the email and access the invitation link: Accept Invitation to [facility]4.Fill in the required vegas to create your account. Sign into www.wandyGreytip Software with your username and password that you [...] you will allow to register on the [facility] Patient Portal for access to your information. You can also access the [facility] Patient Portal on the [employer] yen. Simply click on Health Records under [employer] and then click on the Wandy logo. [...] Call your local pharmacy or go to http://bit.ly/2H1Ha0k to find one close to you.3.Make use of household items: Use cat litter or old coffee grounds to dispose medications if other options arenot available. Mix your drugs with these household products, seal them in an airtight container andthrow it into the garbage. Call [facility]: [phone] to be sure your drugs can be [...] aware that I should contact my doctor. Patient/Engineering Executive Signature: Date/Time: Relationship to Patient: Witness Name/Signature: Date/Time: [facility] [id number] Note ORIGINAL EXAMINATION: ONE XRAY VIEW OF [...] Date: 05/27/2022 7:25:51 PM Ordering Provider[facility] Hospital Discharge instructions Patient Education 03/15/2022 00:01:33 [...] the ears or bruising around the eyes 7986-2122 [employer]. [address] [place] [address]. All rights reserved. This information is not intended as a substitute for professional medical care. Always follow yourhealthcare professional's instructions. Follow Up Care 03/14/2022 22:45:58 With:RHONDA ERICKSON Address: [address] [place] [place] [address] [phone] Business (1) When:2-4 days With:Call Physician Referral Address:Unknown When:2-4 days [facility] 09-30-2022 Note Discharge Instructions Thank you for allowing [facility] to assist you with your healthcare needs. The following is importantdischarge information regarding your hospital visit. Diagnosis from Today's Visit Headache What to Do Next Instructions from Your Care Team No qualifying data available. Post Acute Orders No qualifying data available. You Need to Schedule the Following Appointments Follow Up with RHONDA ERICKSON When Within 2-4 days Where: [address] [place] [address]- [phone] Business (1) Follow Up with Call Physician [...] the ears or bruising around the eyes 1541-0679 [employer]. [address] [place] [address]. All rights reserved. This information is not intended as a substitute for professional medical care. Always follow yourhealthcare professional's instructions. Additional Information VACCINATE! IT SAVES LIVES! Members of the community who have not yet received the COVID-19 vaccine and would like to receive it can visit one of [facility] vaccine clinics. There are many vaccine clinic locations within the [facility]. For locations and available times, please visit www.[email or web address].org. It is important to note that some COVID mobile vaccine clinics are held outdoors and may be canceled in rainy orstormy conditions. To learn more about pediatric vaccinations (ages 5-11), we invite you to visit the [facility] webpage. https://www.[facility].org/pages/8056-Yxesp-Oijshfsstdq-Cwtnmlrcfd-Cegvg-Bcl stions.htmlTo learn more about the COVID-19 vaccine, we invite you to visit the [facility] website for a list of frequently asked questions. https://[facility]/assets/Gifoeqqd-sww-Oqjewxag/fjabc-Ckafycj-Ftiooftidw _Asked-Questions.pdf [facility] Patient Portal Access Instructions: Stay connected with your healthcare team and access your personal medical information anytime with the [facility] Patient Portal. If you would like a full copy of your medical records please contact the [facility] Medical Records Department Friday through Friday between 8a.m. and 4:30p.m. Please follow the directions below to access the portal: 1.Access the email account you provided upon registration to the [facility].2.Look for an invitation email from [facility].3.Open the email and access the invitation link: Accept Invitation to [facility]4.Fill in the required vegas to create [...] you will allow to register on the [facility] Patient Portal for access to your information. You can also access the [facility] Patient Portal on the [employer] yen. Simply click on Health Records under HealthData and then click on the Wandy logo. [...] Call your local pharmacy or go to http://bit.ly/5L2Ki5r to find one close to you.3.Make use of household items: Use cat litter or old coffee grounds to dispose medications if other options arenot available. Mix your drugs with these household products, seal them in an airtight container andthrow it into the garbage. Call [facility]: [phone] to be sure your drugs can be [...] aware that I should contact my doctor. Patient/Engineering Executive Signature: Date/Time: Relationship to Patient: Witness Name/Signature: Date/Time: [facility]09-29-2022 Note ORIGINAL EXAMINATION: CT OF THE HEAD [...] 03/14/2022 11:55:41 PM Ordering Provider: JORGITO CANNON [place] [address]-29-2022 Note ORIGINAL EXAMINATION: CT OF THE HEAD [...] Date: 03/14/2022 11:55:41 PM Ordering Provider: JORGITO [facility]09-23-2022 Hospital Discharge instructions* Discharge Instructions* Giles Maier [...] Everywhere. * Head Injury: Closed: General Info (Montserratian) documented in this encounterSUMMA Work Phone: 1(858) 499-790707-21-2022 History of Present illness Narrative* Ibrahima Schaefer MD - 01/03/2022 12:16 PM EDT HISTORY AND PHYSICAL Patrick Guerrero [place] 1980 REFERRING PHYSICIAN: MD Saurabh CHIEF COMPLAINT: [...] repair of his recurrent ventral hernia at [facility] performed by Dr. Aaron Duque. The operative [...] entered by the nurse and reviewed by vt Nursing Notes: Charlie Mera RN 01/03/2022 11:28 [...] applicable. Charlie Mera RN [facility] Nurse Note* Charlie Mera RN - [...] Mammogram screening? N/A Last Colonoscopy: None Charlie Ede, RN [facility] Instructions* Patient Instructions* Charlie Mera RN - 01/03/2022 10:45 AM EDT The following instructions are important for you related to your office visit today with the [facility] General Surgeons. Instructions After HEMATOMA/SEROMA ASPIRATION Please [...] you should contact our office immediately @ [phone] and ask to be transferred to the General Surgery department. documented [facility] Hospital Discharge instructions Patient Education 12/21/2021 [...] blue color of the hand or foot 6423-4791 [employer]. [address] [place] [address], [place] [address]. All rights reserved. This information is not intended as a substitute for professional medical care. Always follow yourhealthcare professional's instructions. Follow Up Care 12/21/2021 20:37:47 With:AARON DUQUE MD, Surgery Address: [address] [facility] [address] [facility] [place] [address] [phone] When:2-4 days [facility] 07-08-2022 Emergency department Discharge summary Discharge Instructions [...] Schedule the Following Appointments Follow Up with AAORN DUQUE MD, Surgery When Within 2-4 days Where: [address] [facility] [address] [facility] [place] [address] [phone] Allergies Keflex Keppra (Rash) Tape, Paper (Rash) morphine (Rash) naproxen Medications Please ask your primary doctor or pharmacist before taking any other medication not listed, including over the counter drugs, herbal medications, vitamins and or supplements as they may interact withyour home medications. What How Much When Why Instructions Last Dose New acetaminophen-hydrocodone (Elsah 325- 5 mg oral tablet) 1 tab(s) [...] blue color of the hand or foot 9605-5360 [employer]. [address] [place] [address]. All rights reserved. This information is not intended as a substitute for professional medical care. Always follow yourhealthcare professional's instructions. Additional Information VACCINATE! IT SAVES LIVES! Members of the community who have not yet received the COVID-19 vaccine and would like to receive it can visit one of [facility] vaccine clinics. There are many vaccine clinic locations within the [facility]. For locations and available times, please visit www.gettheshot.[email or web address].org. It is important to note that some COVID mobile vaccine clinics are held outdoors and may be canceled in rainy orstormy conditions. To learn more about pediatric vaccinations (ages 5-11), we invite you to visit the [employer] [facility] webpage. https://www.[facility].org/pages/0606-Dcgti-Jbowveltacv-Ifuahrrndq-Juddb-Zxq stions.htmlTo learn more about the COVID-19 vaccine, we invite you to visit the [facility] website for a list of frequently asked questions. https://wandy.org/assets/Vymaweqe-jqe-Jvoslrrs/dnrbo-Lwcxxqs-Apnqafvbom _Asked-Questions.pdf [facility] Patient Portal Access Instructions: Stay connected with your healthcare team and access your personal medical information anytime with the [facility] Patient Portal. If you would like a full copy of your medical records please contact the [facility] Medical Records Department Friday through Friday between 8a.m. and 4:30p.m. Please follow the directions below to access the portal: 1.Access the email account you provided upon registration to the hospital.2.Look for an invitation email from [facility].3.Open the email and access the invitation link: Accept Invitation to [facility]4.Fill in the required vegas to create your account. Sign into www.[employer] with your username and password that you [...] you will allow to register on the [facility] Patient Portal for access to your information. You can also access the [facility] Patient Portal on the [employer] yen. Simply click on Health Records under [employer] and then click on the [employer] logo. HOW TO SAFELY DISPOSE OF PRESCRIPTION [...] Call your local pharmacy or go to http://I Like My Waitress.[employer]/7E3Yt5a to find one close to you.3.Make use of household items: Use cat litter or old coffee grounds to dispose medications if other options arenot available. Mix your drugs with these household products, seal them in an airtight container andthrow it into the garbage. Call [facility]: [phone] to be sure your drugs can be [...] aware that I should contact my doctor. Patient/Engineering Executive Signature: Date/Time: Relationship to Patient: Witness Name/Signature: Date/Time: [facility]07-08-2022 Note ORIGINAL EXAMINATION: CT OF THE ABDOMEN [...] Sign Date: 12/21/2021 9:56:22 PM Ordering Provider: [facility]07-08-2022 Note ORIGINAL EXAMINATION: CT OF THE ABDOMEN [...] Jorgito Hua DO Preliminary Report By: Zoila Archie Electronically signed By Jorgito Hua DO Dictated [...] blue color of the hand or foot 7541-5856 [employer]. [address] [place] [address]. All rights reserved. This information is not intended as a substitute for professional medical care. Always follow yourhealthcare professional's instructions. Follow Up Care 11/30/2021 18:59:24 With:AARON DUQUE Address: [address] [place] [address] [place] [address]- [phone] Business (1) When:2-4 days Comments:Schedule appointment for follow-up.Ice or cool compresses to the swollen, painful area.Use Tylenol,Advil or Aleve for pain as needed.Use Elsah as prescribed for severe pain as needed.Return to the ED if symptoms worsen [facility] 06-10-2022 Evaluation + Plan note Future Scheduled Tests Laboratory* Basic Metabolic Panel 11/23/21 * Carbamazepine Level 11/23/21 * Complete Metabolic Panel 11/23/21 [facility] 06-10-2022 Evaluation + Plan note Future Appointments Future Scheduled Tests Laboratory* Basic Metabolic Panel 11/23/21 * Carbamazepine Level 11/23/21 * Complete Metabolic Panel 11/23/21 [facility] 06-10-2022 Evaluation + Plan note Future Scheduled Tests Laboratory* Basic Metabolic Panel 11/23/21 * Carbamazepine Level 11/23/21 * Complete Metabolic Panel 11/23/21 Radiology* IR Drainage Peritoneal Abscess Guide 08/20/22 [facility] 04-23-2022 Hospital Discharge instructions Patient Education 10/06/2021 [...] the waistline) or spreads to the back 1387-4198 [employer]. [address] [place] [address]. All rights reserved. This information is not intended as a substitute for professional medical care. Always follow yourhealthcare professional's instructions. Follow Up Care 10/06/2021 14:45:39 With:AARON DUQUE MD, Surgery Address: [address] [facility] [address] [facility] [place] [address] [phone] When:2-4 days [facility] Discharge summary Author Guevara [facility] Note Date/Time December 07, 2024 12:1 3am [facility] Medical Records Department [address] [place] [address] Emergency Department Summary 12/07/24 MR#: [id number] Acct: [id number] Name: PATRICK KOROMA Rep #:[id number] : 1980 44 From: Guevara Choi MD PCP: FREDDY AnayaC Status:REG ER Location: ED HPI History of Present Illness Chief Complaint: Upper Extremity Injury Informant: patient Narrative Narrative: During 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 Fnvci-ntgp-xdqxivix. PFSH PFS Medical History Seroma after procedure Influenza due [...] / Time adhesive tape Allergy Hives Verified 12/06/24 23:20 cephalexin monohydrate (From Allergy Anaphylaxis Verified 12/06/24 23:20 Keflex) levetiracetam (From Keppra) Allergy Hives Verified 12/06/24 23:20 morphine Allergy Shortness Verified 12/06/24 23:20 of breath naproxen (From Naprosyn) Allergy Hives Verified 12/06/24 23:20 Family History Grandmother Arthritis Mother Arthritis Seizures [...] weakness EXAM Physical Exam Const Vital Signs: 12/06/24 23:19 Temperature 96.9 F L Temperature Source Temporal Pulse Rate 112 H Respiratory Rate 16 Blood Pressure 155/91 H Blood Pressure Mean 112 Pulse Ox 99 Positive well nourished and well developed General Appearance ED: well developed and NAD Neck full ROM and supple Back/Spine normal ROM and normal to inspection Extremity Extremity Narrative: Right hand: There is an abrasion across the middle of the right thumb fingernailat the radial aspect. There is no subungual hematoma. The IPJ and the distal phalanx are tender but there is no swelling or deformity. There is no tenderness proximal to this including the MCPJ. There is an abrasion at the lateral aspect of the proximal phalanx of the fifth finger, but there is no bonytenderness and there is no tenderness throughout the hand otherwise. Has full range of motion including all tendons. Neuro oriented x3, no focal motor deficits and no sensory deficits noted Sensorium / Orientation: alert Psych mental status grossly normal and thought process normal Skin no wounds Rashes: no rashes MDM MDM MDM Narrative Medical decision making narrative: Three-view x-ray series of the right hand on my interpretation show no acute fractures or dislocation. Radiology in agreement. With regards to his nail, there does appear to be a slight amount of damage to it but it appears partial- thickness and superficial. There does not appear to be damage to the nailbed and there does not appear to be damage to the cuticle or the nail root. Patientstates he is concerned he may lose his nail. I told him that is possible but not definitive, and there is no subungual hematoma for us to treat or trephinatehere. At this time I recommend supportive care with a cage splint for his thumbso he can continue to work at his request, I think that is reasonable. Radiography Diagnostic Testing: Clinical Impression(s) from Imaging Studies Hand X-Ray 12/06/24 23:23 IMPRESSION: No acute osseous abnormality of the right hand. Reading Location: [facility] Discharge Plan Triage Chief Complaint: Upper Extremity Injury ED Provider: Guevara Choi Dx/Rx/DC Orders Clinical Impression: Contusion of right thumb with damage to nail, initial encounter Instructions: ED Finger or Toe Contusion Prescriptions: No Action NK Primary Care Provider: Viola Starkey NP Referrals: Viola Starkey PACKAGE SEALER MACHINE, PACKAGE SEALER MACHINE-C [Primary Care Provider] - 10-14 Days if not better Print Language: Montserratian Disposition Disposition: Home, Self Care What to do if you have Problems For any increased pain, shortness of breath, bleeding, nausea or vomiting, chestpain, or any unexpected problems, contact your Primary Care Provider. Call [facility] ([phone]) or report to the closest Emergency Room. Call 911 if necessary. 12/07/24 0013 <Electronically signed by Guevara Choi MD> Cosigner Signature (if applicable): CC: PACKAGE SEALER MACHINE-C Viola Starkey ~ Signed [facility] Work Phone: Evaluation + Plan note No data available for this section [facility] Evaluation + Plan note Future Appointments Appointment Date:11/01/2021 02:10:00 PM Scheduled Provider:AARON DUQUE MD Location:[facility] Appointment Type:GS OV Check after Test [facility] Evaluation + Plan note Future Appointments [facility] Evaluation + Plan note Future Appointments Appointment Date:12/06/2021 01:40:00 PM Scheduled Provider:AARON DUQUE MD Location:[facility] Appointment Type:GS OV Post Op Appointment Date:02/22/2022 10:30:00 AM Scheduled Provider:APPLE CONNORS Location:[facility] Appointment Type:PC Wellness Annual Future Scheduled Tests Laboratory* Basic Metabolic Panel 11/23/21 * Carbamazepine Level 11/23/21 * Complete Metabolic Panel 11/23/21 [facility] Evaluation + Plan note Future Appointments Appointment Date:12/27/2021 01:20:00 PM Scheduled Provider:AARON DUQUE MD Location:[facility] Appointment Type:GS OV Follow Up Appointment Date:02/22/2022 10:30:00 AM Scheduled Provider:APPLE CONNORS APRN-CURTAIN MENDER Location:[facility] Appointment Type:PC Wellness Annual Future Scheduled Tests Laboratory* Basic Metabolic Panel 11/23/21 * Carbamazepine Level 11/23/21 * Complete Metabolic Panel 11/23/21 [facility] Evaluation + Plan note Future Appointments Appointment Date:07/01/2022 03:20:00 PM Scheduled Provider:AARON DUQUE MD Location:[facility] Appointment Type:GS OV Future Scheduled Tests Laboratory* Basic Metabolic Panel 11/23/21 * Carbamazepine Level 11/23/21 * Complete Metabolic Panel 11/23/21 [facility] Evaluation + Plan note Future Appointments Appointment Date:07/25/2022 10:00:00 AM Scheduled Provider:AVANI CANTOR APRN-CURTAIN MENDER Location:Gen Surg [facility] Appointment Type:GS OV Post Op Future Scheduled Tests Laboratory* Basic Metabolic Panel 11/23/21 * Carbamazepine Level 11/23/21 * Complete Metabolic Panel 11/23/21 [facility] Evnaglbwsb noteNo assessment information available [facility] Work Phone: Evaluation note* Diagnosis Hematoma- Primary Contusion of unspecified site Incisional hernia, without obstruction or gangrene Incisional hernia without mention of obstruction or gangrene [facility] Diagnosis Closed head injury, initial encounter- Primary documented in this encounter [facility] Work Phone: Evaluation note* Diagnosis Injury of right wrist, initial encounter- Primary documented in this encounter [facility] Work Phone: evaluation note* Diagnosis Acute pain of right shoulder- Primary Strain of right shoulder, initial encounter documented in this encounter [facility] [employer] Phone: evaluation note* Diagnosis Onset Date Resolution Status Infected hernioplasty mesh a cute [facility] Work Phone: Evaluation note* Diagnosis Left lower quadrant abdominal pain- Primary [facility] Diagnosis Preoperative examination- Primary Preoperative examination, unspecified Infected hernioplasty mesh, sequela [facility] Diagnosis Abdominal pain, unspecified abdominal location- Primary Preoperative examination Preoperative examination, unspecified Infected hernioplasty mesh, sequela [facility]* Diagnosis Pre-op evaluation- Primary Preoperative examination, unspecified Post traumatic seizure disorder (HCC) Post traumatic seizures Morbid obesity (HCC) Morbid obesity Tobacco use Tobacco use disorder Preoperative examination Preoperative examination, unspecified Infected hernioplasty mesh, sequela [facility]* Diagnosis Left lower quadrant abdominal pain- Primary documented in this encounter [facility] note* Diagnosis Left lateral abdominal pain- Primary Abdominal pain, unspecified site documented in this encounter [facility] note* Diagnosis Seizure (CMS/HCC) (HCC)- Primary Other convulsions [facility] Diagnosis Periumbilical abdominal pain- Primary Abdominal pain, periumbilic History of abdominal hernia documented in this encounter [facility] Work Phone: Evaluation note* Diagnosis History of abdominal hernia documented in this encounter [facility] Work Phone: Hospital Discharge instructions No data available for this section [facility] Hospital Discharge instructions* Attachments The following attachments cannot be sent through Care Everywhere. * RICE: General Info ([place]serratian) [facility] Discharge [facility]* Attachments The following attachments cannot be sent through Care Everywhere. * Shoulder Sprain ([place]) [facility] Discharge instructions Additional Instructions Please keep your appointment next [facility] with [facility] Work Phone: Hospital Discharge instructions Additional Instructions Your x-ray right shoulder negative. Your clinical exam concerns for biceps tendinitis of the shoulder region. Continue ibuprofen. Finish prednisone as prescribed.[facility] Work Phone: Hospital Discharge instructions Additional Instructions You may wear the sling for comfort but exercise your right shoulder at least 3 times a day to prevent frozen shoulder. Qlww-zqe-ivfxvom medications as needed for pain. Follow-up with orthopedics if not improving.[facility] Work Phone: Progress note No data available for this section [facility] Reason for referral (narrative)No reason for referral information availableWFostoria [facility] Work Phone: Reoqrr for visit Narrative* Consultation (Routine) - Authorized Specialty Diagnoses / Procedures Referred By Contac t Referred To Contact General Surgery Diagnoses History of abdominal hernia Jonathan Gonzalez MD [address] [facility] [address] [place] [address] Phone: tel: fax: Stephon Benavides MD [address] [facility] [address] [place] [address] Phone: tel: fax: Referral ID Status Reason Start Date Expiration Date Visits Requested Visits Authorized [id number] Authorized Specialty Services Required 07/29/2024 07/29/2025 1 1 [facility] Work Phone: Suoknvw note* Daksha Love N: PERFORM Event Display: Patient Summary Documents Authored Date: [id number] [facility] Suhwsle note* VERONIKA Connors: PERFORM Event Display: Patient Summary Documents Authored Date: [id number] [facility] Sungxds note* VERONIKA Connors: PERFORM Event Display: Patient Summary Documents Authored Date: [id number] [facility] Subwlzb of episode note* Barbara Michele RN: PERFORM Event Display: Outpatient Patient Summary Authored Date: [id number] Discharge Instructions Thank you for allowing [facility] to assist you with your healthcare needs. The following is importantdischarge information regarding your hospital visit. Your Care Team AARON DUQUE MD Your Diagnosis Acute post-operative pain What to do next Follow Up Appointments Follow Up with AARON DUQUE MD, Surgery When In 2 weeks Why: Call office to schedule follow up appointment. Where: [address] [facility] [address]- [phone] The Following Activity and Diet Have Been Ordered for You Discharge Activity - Ordered -- Sexual Keats Restricted No bending, twisting, crawling or squatt, [...] When Why Instructions Last Dose New acetaminophen-hydrocodone (Elsah 325- 5 mg oral tablet) 1 tab(s) by mouth Every 4 hours as needed for Pain, scale 4-6 Acute post-operative pain Duration: 7 Days Pickup at [facility]/pharmacy #[id number] Unchanged carBAMazepine (TEGretol 200 mg oral tablet) 3 tab(s) by mouth Two (2) times a day Seizure Post-operative state s/p umbilical hernia repair, possible seizure following surgery Pharmacy Information [facility]/pharmacy #[id number]: [address] [place], [place] [id number] [phone] Please take this list to your next [...] as possible. If the spirometer includes a track and field coach indicator, use this to guide you [...] 10/13/2007 Document Revised: 06/25/2018 Document Reviewed: 04/15/2018 [employer] Patient Education 2020 [employer] Surgical Drain Home Care Surgical drains are [...] placed at your back, or any other rrvb-gq-damnz area, ask another person to assist you [...] and water are not available, use hand bookkeeping teacher. 3. Remove the old dressing. Avoid using [...] and water are not available, use hand bookkeeping teacher. 3. Loosen any pins or clips that [...] placed at your back, or any other uycv-qn-xtaqj area, ask another person to assist you. [...] Document Reviewed: 07/07/2019 Elsevier Patient Education 2019 [employer]. Ryan Pantoja Drain Patient Education After surgery, [...] Document Reviewed: 06/03/2014 ExitCare Patient Information 2015 [employer]. This information is not intended to replace [...] garbage bag. Soap and water, or hand bookkeeping teacher. Wound cleanser or salt-water solution (saline). New [...] and water are not available, use hand bookkeeping teacher. 3. Set up a clean station for [...] and water are not available, use hand bookkeeping teacher. Clean your wound Wear gloves, protective clothing, [...] and water are not available, use hand bookkeeping teacher. Apply new dressing Wear gloves, protective clothing, [...] and water are not available, use hand bookkeeping teacher. 8. Turn the pump back on. The sponge dressing should collapse. Do not change the settings on the machine without talking to a health care provider. 9. Replace the container in the pump that collects fluid if it is full. Replace the container per the chiropractic doctor's instructions or at least once a week, [...] all clamps are open. Do not use dtbw-vuj-ukgfuma medicated or antiseptic creams, sprays, liquids, or [...] 08/24/2012 Document Revised: 09/24/2019 Document Reviewed: 08/20/2019 [employer] Patient Education 2020 [employer]. Nausea and Vomiting, Adult Nausea is the [...] water added (diluted fruit juice). Eat bland, ptct-hm-aojaiz foods in small amounts as you are able. These foods include bananas, applesauce, rice, lean meats, toast, and crackers. Avoid fluids that contain a lot of sugar or caffeine, such as energy drinks, sports drinks, and soda. Avoid alcohol. Avoid spicy or fatty foods. General instructions Take wpnb-dxt-ritbrbk and prescription medicines only as told by your health care provider. Drink enough fluid to keep your urine pale yellow. Wash your hands often using soap and water. If soap and water are not available, use hand bookkeeping teacher. Make sure that all people in your [...] eating and drinking to prevent dehydration. Take xile-jmh-slazoua and prescription medicines only as told by [...] 06/02/2006 Document Revised: 09/24/2019 Document Reviewed: 11/10/2018 [employer] Patient Education 2020 [employer]. Monitored Anesthesia Care, Care After These instructions [...] before eating solid foods. General instructions Take hpxd-kvx-wcsolvu and prescription medicines only as told by [...] 09/22/2016 Document Revised: 08/31/2018 Document Reviewed: 09/22/2016 [employer] Patient Education 2020 [employer]. Open Hernia Repair, Adult, Care After This [...] and water are not available, use hand bookkeeping teacher. ? Change your dressing as told by [...] urine clear or pale yellow. ? Take ixft-esg-ohcnfyo or prescription medicines. ? Eat foods that are high in fiber, such as fresh fruits and vegetables, whole grains, and beans. ? Limit foods that are high in fat and processed sugars, such as fried and sweet foods. Take dvsv-fpj-fopmtzf and prescription medicines only as told by [...] 12/20/2005 Document Revised: 05/15/2018 Document Reviewed: 11/13/2016 [employer] Patient Education 2020 [employer] Additional Information VACCINATE! IT SAVES LIVES! Members of the community who have not yet received the COVID-19 vaccine and would like to receive it can visit one of [facility] vaccine clinics. There are many vaccine clinic locations within the [facility]. For locations and available times, please visit [email or web address] It is important to note that some COVID mobile vaccine clinics are held outdoors and may be canceled in rainy or stormy conditions. To learn more about pediatric vaccinations (ages 5-11), we invite you to visit the [facility] webpage. [email or web address]-[email or web address] [email or web address].htmlTo learn more about the COVID-19 vaccine, we invite you to visit the [facility] website for a list of frequently asked questions. [email or web address] _[email or web address] [facility] [employer] Patient Portal Access Instructions: Stay connected with your healthcare team and access your personal medical information anytime with the [facility] Patient Portal.If you would like a full copy of your medical records, please contact the [facility] Medical Records Department, Friday through Friday between 8a.m. and 4:30p.m. Please follow the directions below to access the portal: 1.Access the email account you provided upon registration to the hospital.2.Look for an invitation email from [facility].3.Open the email and access the invitation link: Accept Invitation to [facility]4.Fill in the required vegas to create your account. Sign into www.[employer] with your username and password that you [...] you will allow to register on the [facility] Patient Portal for access to your information. You can also access the [facility] Patient Portal on the [employer] yen. Simply click on Health Records under [facility] and then click on the [facility] logo. [...] Call your local pharmacy or go to http://bit.ly/4E8Kl2i to find one close to you.3.Make use of household items: Use cat litter or old coffee grounds to dispose medications if other options arenot available. Mix your drugs with these household products, seal them in an airtight container andthrow it into the garbage. Call [facility]: [phone] to be sure your drugs can be [...] aware that I should contact my doctor. Patient/Engineering Executive Signature: Date/Time: Relationship to Patient: Witness Name/Signature: Date/Time: [facility] Summary Purpose Family History No Family History [...] No January 01, 2022 6:14pm Power of Dump Truck Driver Off Highway No January 01 6:14pm Advance Directive Response Recorded Date/ Time Advance Directives No July 05, 2017 11:20pm Living Will No July 04 12:18am Power of Dump Truck Driver Off Highway No July 04, 2023 12:18am Advance Directive Response Recorded Date/ Time Advance Directives No July 05, 2017 11:20pm Living Will No June 01, 023 1:14am Power of Dump Truck Driver Off Highway No June 01, 2023 1:14am Advance Directive Response Recorded Date/ Time Living Will No August 24, 2024 10:40pm Power of Dump Truck Driver Off Highway No August 24 10:40pm Advance Directives No July 06, 2017 12:20am Advance Directive Response Recorded Date/ Time Living Will No August 24, 2024 10:40pm Do you have a Healthcare Power of Dump Truck Driver Off Highway? No August 24, 2024 10:40pm Living Will No September 19, 2024 9:34pm Do you have a Healthcare Power of Dump Truck Driver Off Highway? No September 19, 2024 9:34pm Advance Directives No July 06, 2017 12:20am Advance Directive Response Recorded Date/ Time Living Will No August 24, 2024 10:40pm Do you have a Healthcare Power of Dump Truck Driver Off Highway? No August 24, 2024 10:40pm Living Will No September 19, 2024 9:34pm Do you have a Healthcare Power of Dump Truck Driver Off Highway? No September 19, 2024 9:34pm Do you have a Healthcare Power of Dump Truck Driver Off Highway? No December 06, 2024 11:19pm Advance Directives No July 06, 2017 12:20am [...] upper ext September 19, 2024 9:16 pm Chief Complaint Admit Date shoulder pain August 24, 2024 9:0 2pm upper ext September 19, 2024 9:16 pm hand injury December 06, 2024 11:1 9pm Reason for Referral Specialty Diagnoses / Procedures Referred By Contac t Referred To Contact Neurosurgery Diagnoses Left lower quadrant abdominal pain Procedures CONSULT TO NEUROSURGERY Jese Richardson MD [address] [place] [address] Juliocesar Borrero MD, PhD [address] [place] [address] Referral ID Status Reason Start Date Expiration Date Visits Requested Visits Authorized [id number] Ref Not Required PCP Requested Referral 10/07/2023 10/06/2024 1 1 Specialty Diagnoses / Procedures Referred By Contac t Referred To Contact Diagnoses Preoperative examination Infected hernioplasty mesh, sequela Procedures REFER TO PACC - PRE ANESTHESIA CONSULTATION CLINIC OFFICE/OUTPATIENT [facility] 60 MINUTES Linda Griffiths, SOCIAL WORK CASE MANAGER.[facility] [address] [id number] Referral ID Status Reason Start Date Expiration Date Visits Requested Visits Authorized [id number] Authorized PCP Requested Referral 07/21/2023 07/20/2024 1 1 Specialty Diagnoses / Procedures Referred By Contac t Referred To Contact [facility] Diagnoses Preoperative examination Infected hernioplasty mesh, sequela Procedures ECG COMPLETE ECG ROUTINE ECG W/LEAST 12 LDS W/I&R Linda Griffiths APRN.CURTAIN MENDER [address] [place], [place] [phone] [facility] [place] [address] [place] [address] Referral ID Status Reason Start Date Expiration Date Visits Requested Visits Authorized [id number] Pending Review Auto-Generat ed Referral 07/21/2023 07/20/2024 1 1 Specialty Diagnoses / Procedures Referred By Contac t Referred To Contact Diagnoses Preoperative examination Infected hernioplasty mesh, sequela Procedures CONSULT TO [facility] OFFICE/OUTPATIENT [facility] 60 MINUTES Linda Griffiths, [place].CURTAIN MENDER [address] [place], [place] [phone] Referral ID Status Reason Start Date Expiration Date Visits Requested Visits Authorized [id number] Authorized PCP Requested Referral 07/21/2023 07/20/2024 1 1 Specialty Diagnoses / Procedures Referred By Contac t Referred To Contact [facility] [place] Diagnoses Left lower quadrant abdominal pain Procedures CONSULT TO [place] [facility] PAIN RECOVERY (CHRONIC PAIN) OFFICE/OUTPATIENT [facility] 60 MINUTES Linda Griffiths, [place].CURTAIN MENDER [address] [place], [place] [phone] Referral ID Status Reason Start Date Expiration Date Visits Requested Visits Authorized [id number] Pending Review PCP Requested Referral 07/18/2023 07/17/2024 1 1 Additional Source Comments (unrecognized sect ion and content) No Status Records FoundNo Status Records FoundNo Status Records FoundNo Status Records FoundNo Status Records FoundNo Status Records FoundNo Status Records FoundNo Status Records FoundNo Status Records FoundNo Status Records FoundNo Status Records Found INFORMATION SOURCE (unrecogn ized section and content) DATE CREATED AUTHOR 12/10/2017 [facility] [employer] DATE CREATED AUTHOR AUTHOR'S ORGANIZ ATION 12/10/2021 [facility] DATE CREATED AUTHOR AUTHOR'S ORGANIZ ATION 03/18/2022 [facility] DATE CREATED AUTHOR AUTHOR'S ORGANIZ ATION 04/30/2022 [facility] DATE CREATED AUTHOR AUTHOR'S ORGANIZ ATION 06/12/2022 Art Counts include 234 beds at the [facility] DATE CREATED AUTHOR AUTHOR'S ORGANIZ ATION 06/15/2022 [facility] DATE CREATED AUTHOR AUTHOR'S ORGANIZ ATION 02/23/2023 [facility] DATE CREATED AUTHOR AUTHOR'S ORGANIZ ATION 10/16/2023 [facility] ([place]) DATE CREATED AUTHOR AUTHOR'S ORGANIZ ATION 11/07/2023 [facility] DATE CREATED AUTHOR AUTHOR'S ORGANIZ ATION 09/12/2024 [facility] DATE CREATED AUTHOR AUTHOR'S ORGANIZ ATION 12/08/2024 [facility] Care Team (unrecognized sect ion and content) Proof Plate Maker Relationship Specialty Start Date End Date Maddison Martin MD [address] [place], [place] [phone] PCP - General Internal Medicine 07/08/17 Proof Plate Maker Relationship Specialty Start Date End Date No, [...] Dr. Carlo Shea DO Emergency Provider Active Proof Plate Maker Relationship Specialty Start Date End Date Maddison Martin MD [address] [place], [place] [phone] PCP - General Internal Medicine 07/08/17 Jeffery Weber MD [address] [facility] [address] [place], [place] [phone] General Surgery 06/13/23 Proof Plate Maker Relationship Specialty Start Date End Date Maddison Martin MD [address] [facility] [place] [address] PCP - General Internal Medicine 07/08/17 Jeffery Weber MD [address] [address] General Surgery 06/13/23 Proof Plate Maker Relationship Specialty Start Date End Date Maddison Martin MD [address] [place] [address] PCP - General Internal Medicine 07/08/17 Jeffery Weber MD [address] [address] General Surgery 06/13/23 Proof Plate Maker Relationship Specialty Start Date End Date Maddison Martin MD [address] [place] [address] PCP - General Internal Medicine 07/08/17 Jeffery Weber MD [address] [address] General Surgery 06/13/23 Proof Plate Maker Relationship Specialty Start Date End Date Maddison Martin MD [address] [place] [address] PCP - General Internal Medicine 07/08/17 Jeffery Weber MD [address] [address] General Surgery 06/13/23 Proof Plate Maker Relationship Specialty Start Date End Date Maddison Martin MD [address] [place] [address] PCP - General Internal Medicine 07/08/17 Jeffery Weber MD [address] [facility] [address] [place] [address] General Surgery 06/13/23 Proof Plate Maker Relationship Specialty Start Date End Date Maddison Martin MD [address] [place] [address] PCP - General Internal Medicine 07/08/17 Jeffery Weber MD [address] [id number] General Surgery 06/13/23 Proof Plate Maker Relationship Specialty Start Date End Date Jonathan Gonzalez MD [address] [place], [place] [address] Surgeon General Surgery 06/21/24 Proof Plate Maker Relationship Specialty Start Date End Date Jonathan Gonzalez MD [address] [place], [place] [address] Surgeon General Surgery 06/21/24 Proof Plate Maker Relationship Specialty Start Date End Date Jonathan Gonzalez MD [address] [place], [place] [id number] Surgeon General Surgery 06/21/24 Team Status: Active Member Role Status Dates No Primary Care Physician Primary Care Provider Active Team Status: Inactive Member Role Status Dates No Primary Care Physician Primary Care Provider Active Start: August 24, 2024 End: August 24, 2024 Dr. Cristian Le , DO Emergency Provider Active Start : August 24, 2024 End: August 24, 2024 Team Status: Active Member Role Status Dates Viola Starkey NP, PACKAGE SEALER MACHINE-C Primary Care Provider Active Team Status: Inactive Member Role Status Dates Dr. Cristian Barrera DO Attending Provider Active Start : August 24, 2024 End: August 24, 2024 Dr. Cristian Barrera DO Emergency Provider Active Start : August 24, 2024 End: August 24, 2024 Viola Starkey PACKAGE SEALER MACHINE, PACKAGE SEALER MACHINE-C Primary Care Provider Active Start: August 24, 2024 End: August 24, 2024 Team Status: Inactive Member Role Status Dates Viola Starkey NP, PACKAGE SEALER MACHINE-C Primary Care Provider Active Start: September 19, 2024 End: September 19, 2024 Brian Maldonado MD Referring Provider Active Star t: September 19, 2024 End: September 19, 2024 Brian Maldonado MD Emergency Provider Active Star t: September 19, 2024 End: September 19, 2024 Team Status: Inactive Member Role Status Dates Viola Starkey NP, PACKAGE SEALER MACHINE-C Primary Care Provider Active Start: September 19, 2024 End: September 19, 2024 Brian Maldonado MD Attending Provider Active Star t: September 19, 2024 End: September 19, 2024 Brian Maldonado MD Referring Provider Active Star t: September 19, 2024 End: September 19, 2024 Brian Maldonado MD Emergency Provider Active Star t: September 19, 2024 End: September 19, 2024 Team Status: Inactive Member Role Status Dates Viola Starkey NP, PACKAGE SEALER MACHINE-C Primary Care Provider Active Start: December 06, 2024 End: December 07, 2024 Dr. Guevara Choi MD Emergency Provider Active Start: December 06, 2024 End: December 07, 2024 Care Team (unrecognized sect ion and [...] or prosecute any alcohol or drug abuse patient.[facility] the event this information is protected by the Federal Confidentiality of Alcohol and Drug Abuse Patient Records regulations: The Federal rules restrict any use of the information to criminally investigate or prosecute any alcohol or drug abuse patient.[facility] the event this information is protected by the Federal Confidentiality of Alcohol and Drug Abuse Patient Records regulations: The Federal rules restrict any use of the information to criminally investigate or prosecute any alcohol or drug abuse patient.[facility] the event this information is protected by the Federal Confidentiality of Alcohol and Drug Abuse Patient Records regulations: The Federal rules restrict any use of the information to criminally investigate or prosecute any alcohol or drug abuse patient.[facility] the event this information is protected by the Federal Confidentiality of Alcohol and Drug Abuse Patient Records regulations: The Federal rules restrict any use of the information to criminally investigate or prosecute any alcohol or drug abuse patient.[facility] the event this information is protected by the Federal Confidentiality of Alcohol and Drug Abuse Patient Records regulations: The Federal rules restrict any use of the information to criminally investigate or prosecute any alcohol or drug abuse patient.[facility] the event this information is protected by the Federal Confidentiality of Alcohol and Drug Abuse Patient Records regulations: The Federal rules restrict any use of the information to criminally investigate or prosecute any alcohol or drug abuse patient.[facility] Hospital[facility] the event this information is protected by the Federal Confidentiality of Alcohol and Drug Abuse Patient Records regulations: The Federal rules restrict any use of the information to criminally investigate or prosecute any alcohol or drug abuse patient.[facility] Reason for Visit (unrecogniz ed section and content) Reason Comments Consult Reason Comments Head Injury Reason Comments Wrist Pain Pinned between steel pipe and ladder last night c/o pain in right wrist Reason Comments Shoulder Pain Pt c/o right shoulde r pain that started last night after attempting to lift a couch. Reason Comments 4.23.24 Cure Resection of Mesh 2 hours los 0 Reason Comments New Patient Specialty Diagnoses / Procedures Referred By Contac t Referred To Contact [facility] [place] / NEUROLOGY PAIN Diagnoses Left lower quadrant abdominal pain Procedures CONSULT TO [facility] (CHRONIC PAIN) OFFICE/OUTPATIENT NEW HIGH MDM 60 MINUTES Linda Griffiths APRN.CURTAIN MENDER [address] [place], [place] [id number] [facility] [address] [id number] [place] [address] Referral ID Status Reason Start Date Expiration Date V isits Requested Visits Authorized [id number] Closed PCP Requested Referral 07/21/2023 06/15/2024 1 [...] BE BASED ON THE PRIMARY CLINICAL RECORDS. [facility]. provides no warranty or guarantee of the accuracy or completeness of information in this document.
--- NOTE | 2024-12-09 00:50 | EX.ED.DYSGE1 ---
HPI History of Present Illness Chief Complaint: Abd Pain Informant: patient and spouse/S.O. Narrative Narrative: Patient is a 44-year-old male with past medical history of ventral hernia. He states he has needed it repaired multiple time and it is to the point where the hernia now is large and will most likely only be able to repaired by a specialist at [facility]. He denies any recent trauma but states that he has been having increasing pain in the mid abdomen which feels similar nature to his previous bouts of hernia complication and therefore comes in for evaluation [facility] Medical History Seroma after procedure Influenza due to influenza virus, type A, human Contact with or suspected exposure to other viral communicable disease Abdominal pain Sprain of left foot Left ankle sprain Strain of left knee Contusion of left knee Seizures Home Medications ?Medication ?Instructions ?Recorded ?Last Taken ?Type NK 09/19/24 Unknown History Allergy/AdvReac Type Severity Reaction Status Date / Time adhesive tape Allergy Hives Verified 12/08/24 23:34 cephalexin monohydrate (From Allergy Anaphylaxis Verified 12/08/24 23:34 Keflex) levetiracetam (From Keppra) Allergy Hives Verified 12/08/24 23:34 morphine Allergy Shortness Verified 12/08/24 23:34 of breath naproxen (From Naprosyn) Allergy Hives Verified 12/08/24 23:34 Family History Grandmother Arthritis Mother Arthritis Seizures Father Colon cancer Diabetes Brother Heart disease Surgical History H/O hernia repair History of appendectomy Social History household members: spouse Smoking Status: Current every day smoker tobacco type: cigarettes alcohol intake: never ROS ROS ED Constitutional Constitutional ED: Denies chills or fever(s) Eyes Eyes: Denies change in vision ENT ENT ED: Denies sore throat Cardiovascular Cardiovascular: Denies chest pain Respiratory/Chest Respiratory/Chest: Denies cough or dyspnea Gastrointestinal Gastrointestinal: Reports abdominal pain; Denies constipation, diarrhea, nausea or vomiting Genitourinary Genitourinary ED: Denies dysuria Musculoskeletal Musculoskeletal: Denies back pain or myalgias Integumentary Denies rash Neurologic Neurologic: Denies headache(s) Hematologic/Lymphatic Hematologic/Lymphatic: Denies easy bleeding or easy bruising EXAM Physical Exam Const Vital Signs: 12/08/24 23:34 Temperature 98 F Temperature Source Oral Pulse Rate 104 H Respiratory Rate 22 H Blood Pressure 175/105 H Blood Pressure Mean 128 Pulse Ox 99 Oxygen Delivery Method Room Air Positive well nourished, well developed and obese General Appearance ED: well developed; Negative for pallor Nutritional Appearance: obese HEENT Reports moist mucous membranes HEENT Narrative: Normocephalic atraumatic No tongue or lip swelling no oral lesions no airway edema or compromise No secondary findings in the posterior pharynx to suggest infection Eyes PERRL and EOMs intact bilaterally General Eye ED: Negative for scleral icterus Neck supple Neck Narrative: No nuchal rigidity or meningeal signs Resp normal respiratory effort and clear to auscultation bilaterally Resp Narrative: Breath sounds are diminished throughout but overall clear to auscultation without signs of respiratory distress Cardio regular rate and regular rhythm Rate: other Other Details: Heart is regular rate and rhythm Radial and carotid pulses are equal and symmetric GI non-distended GI Narrative: Abdomen is soft and nondistended with normal active bowel sounds. Patient does have a large ventral hernia noted without obvious signs of hernia incarceration or obstruction. No pulsatile mass. No peritoneal signs. Auscultation: normoactive bowel sounds Palpation: soft Back/Spine no CVA tenderness Extremity normal to inspection Neuro oriented x3, CN's II-XII intact bilaterally and no sensory deficits noted Sensorium / Orientation: alert Motor Exam: strength 5/5 throughout Psych mental status grossly normal Skin no rashes or lesions noted General Skin Exam: Negative for jaundice or pallor MDM MDM MDM Narrative Medical decision making narrative: Patient presented to the ER hypertensive. He reported longstanding history of ventral hernia. Based on his report of worsening pain there is concern that he may have an incarcerated hernia or potential early onset small bowel obstruction. Therefore basic labs were obtained and a CT scan was ordered. Labs revealed no clinically significant finding and CT scan showed the large ventral hernia but there was only fat present no intestinal incarceration or signs of obstruction. Therefore at this time there is no need for general surgery intervention as the patient's CT scan confirms the hernia contains fat bowel and there is no sign of incarceration or strangulation or small bowel obstruction. Patient was advised to continue his follow-up with surgery to discuss potential treatment options but is otherwise safe for discharge History & Record Review Discussion w/independent historian: Patient Radiography Diagnostic Testing: Clinical Impression(s) from Imaging Studies Abdomen/Pelvis CT 12/09/24 00:30 IMPRESSION: Unchanged large anterior midline ventral hernia containing nonincarcerated fat. Surgical changes of the anterior abdominal wall. No CT evidence of associated acute abnormality. Unchanged bilateral fat containing inguinal hernias without incarceration. Mild diffuse thickening of the stomach, probably gastritis. Reading Location: [place] [address] Discharge Plan Triage Chief Complaint: Abd Pain ED Provider: Guero Baker Dx/Rx/DC Orders Clinical Impression: Ventral hernia, Hypertension Prescriptions: No Action NK Primary Care Provider: Viola Starkey NP Referrals: Viola Starkey NP, CLIENT ADMINISTRATOR-C [Primary Care Provider] - Print Language: German Disposition Disposition: Home, Self Care Discharge Date/Time: 12/09/24 02:55
[2024-12-09 05:28] LABS: AST(SGOT) 17 U/L (<=37); Alanine Aminotransfer ALT/SGPT 15 U/L (<=46); Albumin, Serum 3.7 g/dL (3.5-5.0); Alkaline Phosphatase 42 U/L (40-129); Anion Gap 11 (5-15); BUN 11 mg/dL (4-19); BUN/Creat Ratio 12.9 RATIO (10-20); Bilirubin, Direct < 0.08 mg/dL (0.00-0.30); Calcium,Total 8.7 mg/dL (7.6-11.0); Carbon Dioxide 23.5 mmol/L (21.0-32.0); Chloride 106 mmol/L (98-108); Creatinine, Serum 0.87 mg/dL (0.70-1.20); Estimated Creatinine Clearance 170.34 ml/min (50-250); Globulin 2.8 g/dL (2.2-4.2); Glucose 105 mg/dL (70-99); Lactic Acid 1.1 mmol/L (0.0-2.0); Lipase 36 U/L (13-75); Protein, Total 6.5 g/dL (5.9-8.4); Sodium Level 140 mmol/L (133-145); Total Bilirubin < 0.15 mg/dL (0.00-1.30)
--- NOTE | 2024-12-09 05:59 | ED.RN ---
See downtime charting.
[2024-12-09 07:37] LABS: Absolute Lymphocyte Count 3.41 X10^3/uL (0.83-4.51); Absolute Neutrophil Count 6.8 X10^3/uL (2.0-7.7); Basophil# 0.09 X10^3/uL; Basophil% 0.8 % (0-1); Eosinophil# 0.23 X10^3/uL; Hematocrit 44.7 % (40-54); Hemoglobin 15.2 g/dL (13.0-16.5); Lymphocyte # 3.41 X10^3/ul (0.83-4.51); Lymphocyte % 30.2 % (19-41); Mean Corpuscular Hgb 31.1 pg (27.0-32.0); Mean Corpuscular Volume 91.4 fL (80-94); Mean Platelet Vol. 9.4 fl (6.2-12.0); Monocyte# 0.68 X10^3/uL; NRBC Flagged by Analyzer 0 % (0-5); Neutrophil # 6.83 X10^3/uL (2.7-7.7); Neutrophil % 60.6 % (47-70); Platelet Count 295 K/mm3 (150-450); RBC Distribution Width CV 12.4 % (11.6-14.6); RBC Distribution Width SD 41.4 fl (35.1-43.9); Red Blood Count 4.89 M/mm3 (4.6-6.2); White Blood Count 11.3 K/mm3 (4.4-11.0)
[2024-12-09 09:56] LABS: EST Glomerular Filtration Rate 108 (>60)
== END 2024-12-09 02:55 | disposition home or self-care (01) ==
PROVIDERS: Emergency Provider Emergency Medicine; PCP Nurse Practitioner Family; Visit Provider Emergency Medicine
DX: R10.9 Unspecified abdominal pain (principal); K43.9 Ventral hernia without obstruction or gangrene; F17.210 Nicotine dependence, cigarettes, uncomplicated; I10 Essential (primary) hypertension; Z90.49 Acquired absence of other specified parts of digestive tract
CPT/HCPCS: 74177; 80048; 80076; 83605; 83690; 85025; 96361; 96374; 96375; 99283; Q9967; A4216; J2405

== ENCOUNTER 2024-12-29 21:21 | Emergency (ER) | payer MEDICAID, SELFPAY ==
[2024-12-29 21:21] VITALS: BP 143/97; PULSE 98; RESP 18; TEMP 36.6; O2SAT 98; BMI 44.1
--- NOTE | 2024-12-29 21:37 | ED.VIS.GI ---
HPI HPI - GI History of Present Illness Chief Complaint: Abd Pain Informant: patient Abdominal Pain/Flank Pain Onset: Days Context: Gradual Onset Timing: Continuous Quality: Aching and Sharp Location: - (Left ventral abdominal pain to the left of umbilicus.) Current Severity: Moderate Maximum Severity: Moderate Worsened by: Nothing Relieved by: Nothing Nausea/Vomiting/Emesis GI Symptom: Negative for Nausea or Vomiting Diarrhea/Melena/Hematochezia GI Symptom: Negative for Diarrhea, Melena or Hematochezia Associated Symptoms Associated Symptoms: Negative for Dysuria, Frequency, Hematuria or Urgency Narrative Narrative: 44-year-old male history of 3 prior hernia repair surgeries two laparoscopic and 1 open with mesh. All umbilical hernias. Prior appendectomy. States he has no other hernia left ventral abdomen. Said pain near the last 3 days. Has had this hernia since January 2023. He saw the surgeon who did his other hernia repair surgeries in [place] he was told by him he could do it. He referred him to a surgeon in [place] at and they also told him they were not able to help him. Patient denies any fever. No dysuria. Denies any nausea, vomiting or diarrhea. No back pain. Prior similar symptoms: Yes Recent Illness/Hospitalization: [facility] Medical History Seroma after procedure Influenza due to influenza virus, type A, human Contact with or suspected exposure to other viral communicable disease Abdominal pain Sprain of left foot Left ankle sprain Strain of left knee Contusion of left knee Seizures Home Medications ?Medication ?Instructions ?Recorded ?Last Taken ?Type NK 09/19/24 Unknown History Allergy/AdvReac Type Severity Reaction Status Date / Time adhesive tape Allergy Hives Verified 12/29/24 21:22 cephalexin monohydrate (From Allergy Anaphylaxis Verified 12/29/24 21:22 Keflex) levetiracetam (From Keppra) Allergy Hives Verified 12/29/24 21:22 morphine Allergy Shortness Verified 12/29/24 21:22 of breath naproxen (From Naprosyn) Allergy Hives Verified 12/29/24 21:22 Family History Grandmother Arthritis Mother Arthritis Seizures Father Colon cancer Diabetes Brother Heart disease Surgical History H/O hernia repair History of appendectomy Social History household members: spouse Smoking Status: Current every day smoker tobacco type: cigarettes alcohol intake: never ROS ROS ED ROS Narrative Abdominal pain. No nausea, vomiting or diarrhea. No dysuria. No fever. Constitutional Constitutional ED: Denies chills or fever(s) ENT ENT ED: Denies ear pain Cardiovascular Cardiovascular: Denies chest pain Respiratory/Chest Respiratory/Chest: Denies cough or dyspnea Gastrointestinal Gastrointestinal: Reports abdominal pain; Denies constipation, diarrhea, melena, nausea or vomiting Genitourinary Genitourinary ED: Denies dysuria or hematuria Musculoskeletal Musculoskeletal: Denies arthralgias or back pain Integumentary Denies abscess Neurologic Neurologic: Denies headache(s) Psychiatric Psychiatric: Denies anxiety Endocrine Endocrinology: Denies polydipsia Hematologic/Lymphatic Hematologic/Lymphatic: Denies easy bleeding Allergic/Immunologic Allergic/Immunologic ED: Denies mouth swelling, tongue swelling or urticaria EXAM Physical Exam Narrative Exam Narrative: 44-year-old male sitting upright in bed. Vital signs are stable afebrile. He does not look septic toxic he is in no distress. H EENT exam pupils round react light. Moist mucous membranes. Neck nontender no lymphadenopathy. Lungs clear to auscultation bilaterally. Heart regular rhythm rate about 95 no murmur. Chest wall ribs nontender. Abdomen soft nondistended normal bowel sounds without peritoneal signs. He has a well-healed periumbilical scar that is old. Left abdomen lateral to his umbilicus there is a ventral hernia. It is reducible. Is tender to palpation. Patient is obese. Right upper right lower quadrant are not tender. There is no signs of obstruction. Moving all 4 extremities. Nontender no edema. Back nontender. He is awake alert. No focal motor deficits. Const Vital Signs: 12/29/24 21:21 12/29/24 22:13 12/29/24 22:16 Temperature 98 F Temperature Source Oral Pulse Rate 98 86 86 Respiratory Rate 18 14 14 Blood Pressure 143/97 H 158/95 H 159/94 H Blood Pressure Mean 112 116 115 Pulse Ox 98 99 99 Oxygen Delivery Method Room Air Room Air Room Air Positive well nourished, well developed and obese; Negative for cachectic, contractures or unkempt General Appearance ED: well developed and NAD; Negative for unkempt, cachectic, contractures or pallor Nutritional Appearance: obese; Negative for cachectic HEENT Reports moist mucous membranes normocephalic and atraumatic Eyes PERRL and EOMs intact bilaterally Neck no lymphadenopathy, supple and no JVD Resp normal respiratory effort and clear to auscultation bilaterally Cardio regular rate, regular rhythm, S1 normal heart sound, S2 normal heart sound and no murmurs GI non-distended and no masses; Negative for non-tender GI Narrative: Left abdominal ventral hernia. Tender. But easily reducible. No peritoneal signs. No signs of obstruction. Inspection: Negative for abdominal distention Auscultation: normoactive bowel sounds Palpation: soft, tender and hernia; Negative for guarding, rigid, mass, pulsatile mass or rebound tenderness present Back/Spine no CVA tenderness Extremity full ROM General Extremety ED: Negative for edema or tenderness General Extremity: Negative for edema Neuro CN's II-XII intact bilaterally and moves all extremities Sensorium / Orientation: alert, oriented to person, oriented to place and oriented to time Motor Exam: strength 5/5 throughout Psych mental status grossly normal and thought process normal Appearance: Negative for unkempt Skin no wounds General Skin Exam: Negative for jaundice or pallor Lesions: no lesions Rashes: no rashes MDM MDM MDM Narrative Medical decision making narrative: 44-year-old 3 prior hernia repair surgeries and a prior appendectomy. Has a left ventral hernia that is reducible. Complaining of pain. CAT scan labs to be obtained. Clinically does not appear to be obstructed nor incarcerated nor strangulated. I be given Dilaudid for pain. And reexamined. Repeat exam patient doing well at 10:50 PM. I explained to him he is going to have recurrent pain. Currently has no signs of obstruction. I have referred him to the [facility] they have general surgeons here that her hernia rv repair technician to see if they can offer him any benefit. History & Record Review Discussion w/independent historian: Patient and Family Additional record(s) reviewed:: Prior inpatient record, Prior outpatient record, Prior ED visit and Prior labs Lab Data Attestation: I reviewed the patient's lab results. Lab results narrative: CBC shows white count 1.7. H&H 15 and 43. Platelets 295 CAT scan of the abdomen pelvis with IV contrast shows large ventral hernia. But no signs of obstruction. Read by myself and the radiologist. Chemistry shows sodium 136. Gap 12. Normal BUN and creatinine. Glucose 100. Liver enzymes normal. Lipase normal at 28. Labs: Laboratory Results - last 24 hr 12/29/24 22:02 WBC 11.7 H RBC 4.88 Hgb 15.0 Hct 43.2 MCV 88.5 MCH 30.7 MCHC 34.7 RDW Std Deviation 40.5 RDW Coeff of Nory 12.4 Plt Count 295 MPV 9.5 Immature Gran % (Auto) 0.300 Neut % (Auto) 61.9 Lymph % (Auto) 30.4 Castro % (Auto) 5.1 Eos % (Auto) 1.7 Baso % (Auto) 0.6 Absolute Neuts (auto) 7.2 Absolute Lymphs (auto) 3.55 Nucleated RBC % 0 Sodium 136 Potassium 4.3 Chloride 103 Carbon Dioxide 21.1 Anion Gap 12 BUN 6 Creatinine 0.79 Estim Creat Clear Calc 186.62 Est GFR (MDRD) Non-Af 112 BUN/Creatinine Ratio 7.7 L Glucose 100 H Calcium 9.1 Total Bilirubin 0.19 AST 21 ALT 10 Alkaline Phosphatase 39 L Total Protein 6.8 Albumin 3.8 Globulin 3.0 Albumin/Globulin Ratio 1.3 Lipase 28 Radiography Diagnostic Testing: Clinical Impression(s) from Imaging Studies Abdomen/Pelvis CT 12/29/24 22:15 IMPRESSION: There is redemonstration of the large ventral hernia containing omental fat, without bowel. Reading Location: [place] [address] Discharge Plan Triage Chief Complaint: Abd Pain ED Provider: Justin Cordero Dx/Rx/DC Orders Clinical Impression: Abdominal pain, Ventral hernia Instructions: ED Hernia (Adult) Prescriptions: No Action NK Primary Care Provider: Viola Starkey NP Referrals: Viola Starkey NP, SPANISH SPEAKING BABYSITTER-C [Primary Care Provider] - Activity Restrictions/Additional Instructions: Call the [facility]. Get the name and office number of the general surgeons there that are hernia rv repair technician. Call their office to get an appointment. Motrin and Tylenol for pain. Print Language: Argentine Disposition Disposition: Home, Self Care
[2024-12-29 22:13] VITALS: BP 158/95; PULSE 86; RESP 14; O2SAT 99
[2024-12-29 22:13] LABS: Hematocrit 43.2 % (40-54); Hemoglobin 15.0 g/dL (13.0-16.5); Immature Granulocytes Count 0.030 X10^3/uL (0.0-0.0); Mean Corp Hgb Conc 34.7 g/dL (32-36); Mean Corpuscular Volume 88.5 fL (80-94); Mean Platelet Vol. 9.5 fl (6.2-12.0); NRBC Flagged by Analyzer 0 % (0-5); Platelet Count 295 K/mm3 (150-450); RBC Distribution Width CV 12.4 % (11.6-14.6); RBC Distribution Width SD 40.5 fl (35.1-43.9); Red Blood Count 4.88 M/mm3 (4.6-6.2); White Blood Count 11.7 K/mm3 (4.4-11.0)
--- NOTE | 2024-12-29 22:15 | CT_ITS ---
PROCEDURE: ABDOMEN/PELVIS W IV CONT ONLY 12/29/2024 REASON FOR EXAM: VENTRAL HERNIA PAIN. TECHNIQUE: ABDOMEN/PELVIS W IV CONT ONLY Coronal and Sagittal reconstruction series were provided. CONTRAST: Isovue 370 VOLUME: 95 mL One or more dose reduction techniques were used (e.g., Automated exposure control, adjustment of the mA and/or kV according to patient size, use of iterative reconstruction technique. RADIATION DOSE SUMMARY: CTDlvol: 34 mGy DLP: 1414 mGycm COMPARISON: 12/09/2024 FINDINGS: Clear lung bases. Normal heart size. Diffuse hepatic steatosis. Normal gallbladder, pancreas, spleen, adrenal glands and kidneys. Small simple left renal cyst. No hydronephrosis or ureteral stone. Normal bladder. Normal prostate. No retroperitoneal or pelvic adenopathy. No free air. Nondistended bowel. Status post cholecystectomy. No acute large bowel findings. Lumbar spine degeneration. There is redemonstration of a large midline ventral hernia, of omental fat not bowel, measuring approximately 4 x 20 cm. Muscle layer defect of approximately 4.7 cm. Small left inguinal hernia of fat. CT/Abdomen/Pelvis W IV Cont ONLY IMPRESSION: There is redemonstration of the large ventral hernia containing omental fat, wi thout bowel. [facility]
[2024-12-29 22:16] VITALS: BP 159/94; PULSE 86; RESP 14; O2SAT 99
[2024-12-29 22:45] LABS: AST(SGOT) 21 U/L (<=37); Alanine Aminotransfer ALT/SGPT 10 U/L (<=46); Albumin, Serum 3.8 g/dL (3.5-5.0); Alkaline Phosphatase 39 U/L (40-129); Anion Gap 12 (5-15); BUN 6 mg/dL (4-19); BUN/Creat Ratio 7.7 RATIO (10-20); Calcium,Total 9.1 mg/dL (7.6-11.0); Carbon Dioxide 21.1 mmol/L (21.0-32.0); Chloride 103 mmol/L (98-108); Estimated Creatinine Clearance 186.62 ml/min (50-250); Globulin 3.0 g/dL (2.2-4.2); Glucose 100 mg/dL (70-99); Lipase 28 U/L (13-75); Potassium 4.3 mmol/L (3.3-5.1)
[2024-12-29 22:56] VITALS: BP 159/94; PULSE 79; RESP 18; TEMP 37; O2SAT 98
== END 2024-12-29 22:56 | disposition home or self-care (01) ==
PROVIDERS: Emergency Provider Emergency Medicine; PCP Nurse Practitioner Family; Visit Provider Emergency Medicine
DX: R10.9 Unspecified abdominal pain (principal); K43.9 Ventral hernia without obstruction or gangrene; F17.210 Nicotine dependence, cigarettes, uncomplicated; Z90.49 Acquired absence of other specified parts of digestive tract
CPT/HCPCS: 74177; 80053; 83690; 85025; 96374; 96375; 99284; Q9967; A4216; J2405

== ENCOUNTER 2025-01-25 22:22 | Emergency (ER) | payer MEDICAID, SELFPAY ==
[2025-01-25 22:23] VITALS: BP 135/110; PULSE 94; RESP 16; TEMP 37.1; O2SAT 98; BMI 43.9
[2025-01-25 22:24] VITALS: BP 135/110; PULSE 94; RESP 16; TEMP 37.1; O2SAT 98
--- OUTSIDE RECORDS SUMMARY | 2025-01-25 22:45 | XMS RPT_ITS | CCD ---
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 Name Role Phone JOSH HELTON Unavailable Unavailable MADDISON MARTIN Unavailable Unavailable CIELO ALANIZ Unavailable Unavailable MILDRED GALLARDO Unavailable Unavailable MADDISON MARTIN Unavailable Unavailable MADDISON MARTIN Unavailable Unavailable DR MADDISON MARTIN MD Primary Care Physician PHYSICIAN, NONE Primary Care Physician Unavailab Maddison Cowan MD Primary Care Provider Unavailable Primary Care Provider Unavailabl e PROVIDER, [...] Primary Care Provider Jeffery Weber MD Unavailable [phone] VIOLA HERNANDEZ Primary Care Physician Maddison Martin MD Primary Care Provider TOI MARMOLEJO DO Attending Unavailable PHYSICIAN, NONE Primary Care Unavailable VIOLA HERNANDEZ Primary Care REYES Tate DO Attending Unavailable PAUL DOBSON Attending Unavailable PHYSICIAN, NONE Primary Care Unavailable [facility], TOI Attending Unavailable PHYSICIAN, NONE Primary Care Unavailable YARA HENSON MD Attending Unavailable PHYSICIAN, NONE Primary Care Unavailable MARY ANN JEONG, DR LEDY Kirkpatrick Attending Unavai lable PHYSICIAN, NONE Primary Care Unavailable DEVAUGHN MCCARTY-BERT, AVANI Attending Unavailabl e PHYSICIAN, NONE Primary Care Unavailable DAVID ZARATE, ROSHNI Attending Itzel vailable PHYSICIAN, NONE Primary Care Unavailable MAI JEONG, DAVONTE Jurado Attending Unavail able LALITO GIRALDON-LEAD TECHNICAL ARCHITECT, VIOLA Siddiqi Primary Care Unavai lable REICHFIELD [...] Unavailable Dr. Cristian Barrera DO Emergency Provider [phone] VIOLA HERNANDEZ Attending Alireza RAMÍREZ, VIOLA Siddiqi Primary Care Unavai lable SHANIKA TIRADO DO Attending Unavailable LALITO MCCARTY-BERT, VIOLA Siddiqi Primary Care Unavai lable CHOUJAA DORADHA Attending Unavailable LALITO RAMÍREZ, VIOLA Siddiqi Primary Care Unavai labDr. Cristian Marshall Attending Provider Starkey MAKEUP ARTISTRY INSTRUCTOR-C, [facility] Primary Care Provider Joel JEONG, Brian Referring Provider Joel JEONG, Brian Emergency Provider Joel JEONG, Brian Attending Provider Jimbo JEONG, Dr. Waterman Emergency Provider Dr. Guero Baker DO Emergency Provider Lalito MAKEUP ARTISTRY INSTRUCTOR-C, [facility] Primary Care Provider Jimbo JEONG, Dr. Waterman Attending Provider Dr. Guero Baker DO Attending Provider Gil JEONG, Dr. Anderson Emergency Provider Starkey MAKEUP ARTISTRY INSTRUCTOR, [facility] Primary Care Unavailable Guero Baker Attending Unavailable Starkey MAKEUP ARTISTRY INSTRUCTOR, [facility] Primary Care Unavailable Guevara Choi Attending Unavailable Lalito MAKEUP ARTISTRY INSTRUCTOR, [facility] Primary Care Unavailable Brian Maldonado Referring Unavailable Brian Maldonado Attending Unavailable Starkey MAKEUP ARTISTRY INSTRUCTOR, [facility] Primary Care Unavailable Cristian Barrera Attending Unavailable Care Physician, No Primary Primary Care Unava ilable Guevara Choi Attending Unavailable Lalito MAKEUP ARTISTRY INSTRUCTOR, [facility] Primary Care Unavailable Justin Cordero Attending Unavailable Allergies Allergy Classification Reported Allergen(s) Allergy Type Date of Onset Reaction(s) Facility (20 sources) Cephalexin; Translations: [cephalexin] Drug Allergy 11-13-19 17 [facility] (20 sources) levETIRAcetam; Translations: [levetiracetam] Drug Allergy 10-24-19 [facility] Morphine; Translations: [morphine] Drug Allergy 10-24-19 17 [facility] (20 sources) Naproxen; Translations: [naproxen] Drug Allergy 07-08-19 18 [facility] (20 sources) Tape, Paper Propensity to adverse reactions to substance Rash [facility] (9 sources) Cephalexin; Translations: [cephalexin monohydrate] Drug Allergy 09-24-19 Anaphylaxis [facility] (2 sources) PAPER TAPE; Translations: [PAPER TAPE] Allergy to substance 09-24-19 [facility] (9 sources) Adhesive Tape-Silicones; Translations: [ADHESIVE TAPE-SILICONES] Drug Allergy 10-24-19 [facility] (10 sources) Adhesive Tape Propensity to adverse reactions to drug 03-08-20 [facility] Comment on above: PAPER TAPE (1 source) levETIRAcetam Drug Allergy [facility] (1 source) Morphine Drug Allergy [facility] (1 source) Naproxen Drug Allergy [facility] (2 sources) Levetiracetam Allergy to substance 10-24-19 [facility] (2 sources) Wound Dressing Adhesive Drug Intolerance 03-08-20 [facility] (1 source) Adhesive agent Drug Intolerance 03-08-20 22 [facility] (1 source) Adhesive Tape Drug allergy (disorder) 12-30-19 25 [facility] (1 source) levETIRAcetam Drug Allergy 12-30-19 25 [facility] (1 source) Morphine Drug Allergy 12-30-19 25 [facility] (1 source) Naproxen Drug Allergy 12-30-19 25 [facility] Medications Current Medications Medication Drug [...] / oxyCODONE hydrochloride 5 mg oral tablet (18 sources) Opioid Agonist Start: 09-11-2023 End: 09-14-2023 [...] HOURS NEEDED as needed for Pain 12 3 October 05, 2018 12:00am October 07, 2018 12:00am October 08, 2018 12:09am Abdominal pain Unspecified abdominal pain Start: 10-05-2018 End: 10-08-2018 take 1 tablet by mouth every six hours as needed Oxycodone-Acetaminophen Discontinued 1 TABLET PO EVERY 6 HOURS NEEDED 12 October 04, 2018 11:00pm October 07, 2018 11:09pm Start: 09-25-2018 End: 09-30-2018 Oxycodone-Acetaminophen 1 TA BLET tablet Discontinued 1 - 2 {tbl} PO EVERY 6 HOURS NEEDED as needed for Pain 25 September 25, 2018 12:00am September 29, 2018 12:00am September 30, 2018 12:07am Postoperative pain Other acute postprocedural pain Start: 09-25-2018 End: 09-30-2018 take 1 tablet [...] 600 mg PO TWICE A DAY 180 0 October 11, 2016 12:00am April 01, 2018 [...] 2016 11:00pm take 1 capsule by mo [facility] three times daily gabapentin (NEURONTIN) 100 MG capsule Take 100 mg by mouth 3 times daily. 0 Active Comment on above: Take 1 capsule by mo ut three times daily for 90 days. Take 1 capsule by mo ut three times a day for 90 days. [place] (Nk) (4 sources) Start: 025 [place] (Nk) Active September 19, 2024 12:00am ondansetron [...] TABLET PO EVERY 6 HOURS NEEDED 10 3 June 01, 2023 Start: 07-18-2022 End: 07-25-2022 [place] 325- 5 mg oral tablet Dose = 1 tab(s), Oral, q4h, PRN Pain, scale 4-6, X 7 day(s), # 28 tab(s), 0 Refill(s), [id number], Acute post-operative pain, 188, cm, 07/18/22 7:07:00 EST, Height, 134, kg, 07/18/22 7:07:00 EST, Dosing Weight Start Date: 07/18/22 Stop Date: 07/25/22 Status: Ordered Start: 04-25-2022 End: 04-25-2022 HYDROcodone-acetaminophen (N ORCO) 5-325 MG per tablet 1 tablet Start: 01-01-2022 End: 09-19-2024 Hydrocodone-Acetaminophen 5- 325 mg tablet Discontinued 1 {tbl} PO EVERY 6 HOURS NEEDED as needed for Pain 12 3 July 03, 2023 September 19, 2024 9:33pm Infected hernioplasty mesh Start: 01-01-2022 take 1 tablet by hien th every six hours as needed Hydrocodone-Acetaminophen Active 1 TABLET PO EVERY 6 HOURS NEEDED 05 18July 03, 2023 Start: 12-21-2021 End: 12-24-2021 take 1 tablet by mouth every six hours as needed for pain [place] 325- 5 mg oral tablet Dose = 1 tab(s), Oral, q6h, PRN as needed for pain, X 3 day(s), # 12 tab(s), 0 Refill(s), Hematoma, 134 Start Date: 12/21/21 Stop Date: 12/24/21 Status: Ordered Start: 11-30-2021 End: 12-03-2021 take 1 tablet by mouth every six hours as needed for pain [place] 325- 5 mg oral tablet Dose = 1 tab(s), Oral, q6h, PRN As needed for severe pain, X 3 day(s), # 12 tab(s), 0 Refill(s), Postoperative abdominal pain, 141.1 Start Date: 11/30/21 Stop Date: 12/03/21 Status: Ordered Start: 10-06-2021 End: 10-09-2021 take 1 tablet by mouth every six hours [place] 325- 5 mg oral tablet Dose = 1 tab(s), Oral, q6h, # 12 tab(s), 0 Refill(s), Umbilical hernia, 146.5 Start Date: 10/06/21 Stop Date: 10/09/21 Status: Ordered benzonatate 100 mg oral capsule (7 sources) Non-narcotic Antitussive Start: 05-28-2022 End: 09-19-2024 [...] 2022 12:00am ibuprofen 600 mg oral tablet (13 sources) Nonsteroidal Anti-inflammatory Drug Start: 02-25-2024 End: 09-19-2024 take 1 tablet by mouth every eight hours as needed for pain Ibuprofen 600 MG tablet Discontinued 600 mg PO Q8H as needed for Pain 15 0 February 25, 2024 12:37am September 19, 2024 9:33pm Start: 10-05-2018 End: 02-25-2024 take 1 tablet by mouth every six hours as needed for pain Ibuprofen 600 MG tablet Discontinued 600 mg PO EVERY 6 HOURS NEEDED as needed for Pain 20 October 05, 2018 12:00am February 25, 2024 [...] Comment on above: Take 1 tablet by [facility] once daily. for pain. Take with food. [...] eric padilla predniSONE 20 mg oral tablet (5 sources) Start: 5 End: 5 take 3 tablets by mouth once daily Prednisone 20 mg tablet Discontinued 60 mg PO DAILY 12 August 24, 2024 12:00am September 19, 2024 [...] Episodic Complication of device; implant or graft (13 sources) Infected hernioplasty mesh; Translations: [Infection and inflammatory reaction due to other internal prosthetic devices, implants and grafts, initial encounter] Onset: 4 07-04-2023 Episodic Complications of surgical procedures or medical care (20 sources) Postoperative hematoma formation; Translations: [Postoperative hematoma] 12-13-2021 Episodic E Codes: Fall (4 sources) Fall from ladder; Translations: [Fall on and from ladder, initial encounter] 09-19-2024 Episodic E Codes: Fall (20 sources) Fall 09-05-2017 Epilepsy; convulsions (20 sources) Seizure; Translations: [Post traumatic seizures] Onset: 7 09-09-2013 Episodic Esophageal disorders (20 sources) Gastroesophageal reflux disease 09-09-2013 Chronic Essential hypertension (1 source) Hypertensive disorder; Translations: [Essential (primary) hypertension] 12-17-2024 Chronic Fluid and electrolyte disorders (1 source) Hypo-osmolality and or hyponatremia; Translations: [Hypo-osmolality and hyponatremia] Onset: 3 Episodic Headache; including migraine (2 sources) Headache; including migraine; Translations: [Headache, unspecified] Onset: 2 Immunizations and screening for infectious disease (7 sources) Contact with and (suspected) exposure to other viral communicable diseases; Translations: [Contact with or suspected exposure to other viral communicable disease] 06-12-2023 Episodic Influenza (7 sources) Influenza due to Influenza A virus; Translations: [Influenza due to other identified influenza virus with other respiratory manifestations] 06-12-2023 Episodic Intestinal obstruction without hernia (1 source) Intestinal obstruction; Translations: [Ileus, unspecified] Onset: 3 Episodic Nausea and vomiting (1 source) Nausea and vomiting; Translations: [Nausea with vomiting, unspecified] Onset: 3 Episodic Other aftercare (2 sources) Other intermodal customer service (current) drug therapy; Translations: [Other intermodal customer service (current) drug therapy] Onset: 2 Episodic Other bone disease and musculoskeletal deformities (4 sources) Clavicle pain; Translations: [Other specified disorders of bone, shoulder] 09-19-2024 Episodic Other connective tissue disease (5 sources) Tendinitis of long head of biceps [...] injuries and conditions due to external causes (5 sources) Injury of right shoulder; Translations: [Unspecified injury of right shoulder and upper arm, initial encounter] 08-24-2024 Episodic Other lower respiratory disease (1 source) Cough; Translations: [Cough, unspecified] Onset: 2 Episodic Other nervous system disorders (9 sources) Postoperative pain ; Translations: [Other acute [...] uncomplicated] Onset: 2 Chronic Superficial injury; contusion (17 sources) Contusion of knee; Translations: [Contusion of [...] Test Name Value Interpretation Reference Range Facility Abdomen/Pelvis W IV Cont ONL Yon 12-29-2024 Abdomen/Pelvis W IV Cont ONLY [facility] Imaging Services [address] [place] [id number] Abdomen/Pelvis W IV Cont ONLY MR#: [id number] Acct: [id number] Name: PATRICK KOROMA Rep #: [id number] : 1980 M 44 From: Colt Cruz MD PCP: Vioal Starkey NP-C Status: REG ER Study: Abdomen/Pelvis W IV Cont ONLY Date of Exam: Exam# [id number] Ordering Dr: Justin Cordero MD PROCEDURE: ABDOMEN/PELVIS W IV CONT ONLY 12/29/2024 REASON FOR EXAM: VENTRAL HERNIA PAIN. TECHNIQUE: ABDOMEN/PELVIS W IV CONT ONLY Coronal and Sagittal reconstruction series were provided. CONTRAST: Isovue 370 VOLUME: 95 mL One or more dose reduction techniques were used (e.g., Automated exposure control, adjustment of the mA and/or kV according to patient size, use of iterative reconstruction technique. RADIATION DOSE SUMMARY: CTDlvol: 34 mGy DLP: 1414 mGycm COMPARISON: 12/09/2024 FINDINGS: Clear lung bases. Normal heart size. Diffuse hepatic steatosis. Normal gallbladder, pancreas, spleen, adrenal glands and kidneys. Small simple left renal cyst. No hydronephrosis or ureteral stone. Normal bladder. Normal prostate. No retroperitoneal or pelvic adenopathy. No free air. Nondistended bowel. Status post cholecystectomy. No acute large bowel findings. Lumbar spine degeneration. There is redemonstration of a large midline ventral hernia, of omental fat not bowel, measuring approximately 4 x 20 cm. Muscle layer defect of approximately 4.7 cm. Small left inguinal hernia of fat. CT/Abdomen/Pelvis W IV Cont ONLY IMPRESSION: There is redemonstration of the large ventral hernia containing omental fat, without bowel. Reading Location: [place] [address] CC: ERIC Starkey; Dr. Justin Cordero MD Experience Design Director: Signed Normal [facility] Absolute lymphocyte countOrd ered By: Justin Cordero on 12-29-2024 Lymphocytes Auto (Unsp spec) [#/Vol] 3.55 10*3/uL 0.83-4.51 [facility] Absolute neutrophil countOrd ered By: Justin Cordero on 12-29-2024 Neutrophils (Bld) [#/Vol] 7.2 10*3/uL 2.0-7.7 [facility] Anion gap in Serum or Plasma Ordered By: Justin Cordero on 12-29-2024 Anion gap [Moles/Vol] 12 mmol/L 5-15 [facility] Automated lymphocyte count a s percentage of total leukocytesOrdered By: Justin Cordero on 12-29-2024 Lymphocytes/100 WBC Auto (Unsp spec) 30.4 % 19-41 [facility] BUN/creatinine ratioOrdered By: Justin Cordero on 12-29-2024 Urea nitrogen/Creatinine [Mass ratio] 7.7 mg/mg Low 10-20 [facility] Basophil percentageOrdered B y: Justin Cordero on 12-29-2024 Basophils/100 WBC (Bld) 0.6 % 0-[address] [facility] Bilirubin, totalOrdered By: Justin Cordero on 12-29-2024 Bilirubin [Mass/Vol] 0.19 mg/dL 0.00-1.30 [facility] CBC W/Diff, Automatedon 12-14 Absolute Lymph 3.55 X10 3/uL Normal 0.83-4.51 [facility] Comment on above: Performed By: #### L 501.2450, L500.4050, L100.0100 ####[facility] [address] [place], [address] Absolute Neut 7.2 X10 3/uL Normal 2.0-7.7 [facility] Comment on above: Performed By: #### L 501.2450, L500.4050, L100.0100 ####[facility] [address] [place], [address] Basophils/100 WBC (Bld) 0.6 % Normal 0-[address] [facility] Comment on above: Performed By: #### L 501.2450, L500.4050, L100.0100 ####[facility] [address] [place], [address] Eosinophils/100 WBC (Bld) 1.7 % Normal 0-5 [facility] Comment on above: Performed By: #### L 501.2450, L500.4050, L100.0100 ####[facility] [address] [place], [address] Erythrocyte distribution width (RBC) [Ratio] 12.4 % Normal 11.6-14.6 [facility] Comment on above: Performed By: #### L 501.2450, L500.4050, L100.0100 ####[facility] [address] [place], [address] Hematocrit (Bld) [Volume fraction] 43.2 % Normal 40-54 [facility] Comment on above: Performed By: #### L 501.2450, L500.4050, L100.0100 ####[facility] [address] [place], [address] Hemoglobin (Bld) [Mass/Vol] 15.0 g/dL Normal 13.0-16.5 [facility] Comment on above: Performed By: #### L 501.2450, L500.4050, L100.0100 ####[facility] [address] [place], [address] IG% 0.300 Normal 0.0-0.9 [facility] Comment on above: Result Comment: IG% - Immature Granulocytes (promyelocytes, myelocytes and metamyelocytes) > 1% indicates that a LEFT SHIFT is Present. Performed By: #### L 501.2450, L500.4050, L100.0100 ####[facility] [address] [place], [address] Lymphocytes/100 WBC (Bld) 30.4 % Normal 19-41 [facility] Comment on above: Performed By: #### L 501.2450, L500.4050, L100.0100 ####[facility] [address] [place], [address] MCH (RBC) [Entitic mass] 30.7 pg Normal 27.0-32.0 [facility] Comment on above: Performed By: #### L 501.2450, L500.4050, L100.0100 ####[facility] [address] [place], [address] MCHC (RBC) [Mass/Vol] 34.7 g/dL Normal 32-36 [facility] Comment on above: Performed By: #### L 501.2450, L500.4050, L100.0100 ####[facility] [address] [place], [address] MCV (RBC) [Entitic vol] 88.5 fL Normal 80-[address] [facility] Comment on above: Performed By: #### L 501.2450, L500.4050, L100.0100 ####[facility] [address] [place], [address] Monocytes/100 WBC (Bld) 5.1 % Normal 0-10 [facility] Comment on above: Performed By: #### L 501.2450, L500.4050, L100.0100 ####[facility] [address] [place], [address] Neutrophils/100 WBC (Bld) 61.9 % Normal 47-70 [facility] Comment on above: Performed By: #### L 501.2450, L500.4050, L100.0100 ####[facility] [address] [place], [address] Nucleated RBC (Bld) [#/Vol] 0 10*3/uL Normal 0-5 [facility] Comment on above: Performed By: #### L 501.2450, L500.4050, L100.0100 ####[facility] [address] [place], [address] Platelet mean volume (Bld) [Entitic vol] 9.5 fL Normal 6.2-12.0 [facility] Comment on above: Performed By: #### L 501.2450, L500.4050, L100.0100 ####[facility] [address] [place], [address] Platelets (Bld) [#/Vol] 295 10*3/uL Normal 150-450 [facility] Comment on above: Performed By: #### L 501.2450, L500.4050, L100.0100 ####[facility] [address] [place], [address] RBC (Bld) [#/Vol] 4.88 10*6/uL Normal 4.6-6.2 [facility] Comment on above: Performed By: #### L 501.2450, L500.4050, L100.0100 ####[facility] [address] [place], [address] RDW SD 40.5 fl Normal 35.1-43.9 [facility] Comment on above: Performed By: #### L 501.2450, L500.4050, L100.0100 ####[facility] [address] [place], [address] WBC (Bld) [#/Vol] 11.7 10*3/uL High 4.4-11.0 [facility] Comment on above: Performed By: #### L 501.2450, L500.4050, L100.0100 ####[facility] [address] [place], [address] Carbon dioxide, total [Moles /volume] in Central venous bloodOrdered By: Justin Cordero on 12-29-2024 CO2 [Moles/Vol] 21.1 mmol/L 21.0-32.0 [facility] Chloride assayOrdered By: Germán Cordero on 12-29-2024 Chloride [Moles/Vol] 103 mmol/L 98-108 [facility] Comprehensive Metabolic Prof ilon 12-29-2024 Albumin [Mass/Vol] 3.8 g/dL Normal 3.5-5.0 [facility] Comment on above: Performed By: #### L 501.2450, L500.4050, L100.0100 ####[facility] [address] [place], [address] ALK PHOS 39 U/L Low 40-129 [facility] Comment on above: Performed By: #### L 501.2450, L500.4050, L100.0100 ####[facility] [address] [place], [address] ALT [Catalytic activity/Vol] 10 U/L Normal <=46 [facility] Comment on above: Performed By: #### L 501.2450, L500.4050, L100.0100 ####[facility] [address] [place], [address] AST [Catalytic activity/Vol] 21 U/L Normal <=37 [facility] Comment on above: Result Comment: Hemo lysis present, Results??could be affected. ?? Performed By: #### L 501.2450, L500.4050, L100.0100 ####[facility] [address] [place], [address] Bilirubin [Mass/Vol] 0.19 mg/dL Normal 0.00-1.30 [facility] Comment on above: Performed By: #### L 501.2450, L500.4050, L100.0100 ####[facility] [address] [place], [address] BUN/CRE 7.7 RATIO Low 10-20 [facility] Comment on above: Performed By: #### L 501.2450, L500.4050, L100.0100 ####[facility] [address] [place], [address] Calcium [Mass/Vol] 9.1 mg/dL Normal 7.6-11.0 [facility] Comment on above: Performed By: #### L 501.2450, L500.4050, L100.0100 ####[facility] [address] [place], [address] Chloride [Moles/Vol] 103 mmol/L Normal 98-108 [facility] Comment on above: Performed By: #### L 501.2450, L500.4050, L100.0100 ####[facility] [address] [place], [address] CO2 [Moles/Vol] 21.1 mmol/L Normal 21.0-32.0 [facility] Comment on above: Performed By: #### L 501.2450, L500.4050, L100.0100 ####[facility] [address] [place], [address] Creatinine [Mass/Vol] 0.79 mg/dL Normal 0.70-1.20 [facility] Comment on above: Performed By: #### L 501.2450, L500.4050, L100.0100 ####[facility] [address] [place], [address] GAP 12 Normal 5-15 [facility] Comment on above: Performed By: #### L 501.2450, L500.4050, L100.0100 ####[facility] [address] [place], [address] GFR/1.73 sq M.predicted among non-blacks MDRD (S/P/Bld) [Vol rate/Area] 112 mL/min/{1.73_m2} Normal >60 [facility] Comment on above: Result Comment: mL/m in/1.73m2 CKD-EPI Creatinine Equation (2020) Performed By: #### L 501.2450, L500.4050, L100.0100 ####[facility] [address] [place], [address] Glucose [Mass/Vol] 100 mg/dL High 70-99 [facility] Comment on above: Performed By: #### L 501.2450, L500.4050, L100.0100 ####[facility] [address] [place], [address] Potassium [Moles/Vol] 4.3 mmol/L Normal 3.3-5.1 [facility] Comment on above: Result Comment: Hemo lysis present, Results??could be affected. ?? Performed By: #### L 501.2450, L500.4050, L100.0100 ####[facility] [address] [place], [address] Sodium [Moles/Vol] 136 mmol/L Normal 133-145 [facility] Comment on above: Performed By: #### L 501.2450, L500.4050, L100.0100 ####[facility] [address] [place], [address] T PROT 6.8 g/dL Normal 5.9-8.4 [facility] Comment on above: Performed By: #### L 501.2450, L500.4050, L100.0100 ####[facility] [address] [place], [address] Urea nitrogen [Mass/Vol] 6 mg/dL Normal 4-19 [facility] Comment on above: Performed By: #### L 501.2450, L500.4050, L100.0100 ####[facility] [address] [place], [address] Emergency Department Summary on 12-29-[address] [facility] Medical Records Department [address] [place] [address] Emergency Department Summary 12/29/24 MR#: [id number] Acct: [id number] Name: PATRICK KOROMA Rep #: [id number] : 1980 44 From: Justin Cordero MD PCP: ERIC Anaya Status:REG ER Location: ED HPI HPI - GI History of Present Illness Chief Complaint: Abd Pain Informant: patient Abdominal Pain/Flank Pain Onset: Days Context: Gradual Onset Timing: Continuous Quality: Aching and Sharp Location: - (Left ventral abdominal pain to the left of umbilicus.) Current Severity: Moderate Maximum Severity: Moderate Worsened by: Nothing Relieved by: Nothing Nausea/Vomiting/Emesi s GI Symptom: Negative for Nausea or Vomiting Diarrhea/Melena/Hemat ochezia GI Symptom: Negative for Diarrhea, Melena or Hematochezia Associated Symptoms Associated Symptoms: Negative for Dysuria, Frequency, Hematuria or Urgency Narrative Narrative: 44-year-old male history of 3 prior hernia repair surgeries two laparoscopic and 1 open with mesh. All umbilical hernias. Prior appendectomy. States he has no other hernia left ventral abdomen. Said pain near the last 3 days. Has had this hernia since January 2023. He saw the surgeon who did his other hernia repair surgeries in [place] he was told by him he could do it. He referred him to a surgeon in [place] at and they also told him they were not able to help him. Patient denies any fever. No dysuria. Denies any nausea, vomiting or diarrhea. No back pain. Prior similar symptoms: Yes Recent Illness/Hospitalizati on: No PFSH [facility] Medical History Seroma after procedure Influenza due [...] / Time adhesive tape Allergy Hives Verified 12/29/24 21:22 cephalexin monohydrate (From Allergy Anaphylaxis Verified 12/29/24 21:22 Keflex) levetiracetam (From Keppra) Allergy Hives Verified 12/29/24 21:22 morphine Allergy Shortness Verified 12/29/24 21:22 of breath naproxen (From Naprosyn) Allergy Hives Verified 12/29/24 21:22 Family History Grandmother Arthritis Mother Arthritis Seizures Father Colon cancer Diabetes Brother Heart disease Surgical History H/O hernia repair History of appendectomy Social History household members: spouse Smoking Status: Current every day smoker tobacco type: cigarettes alcohol intake: never ROS ROS ED ROS Narrative Abdominal pain. No nausea, vomiting or diarrhea. No dysuria. No fever. Constitutional Constitutional ED: Denies chills or fever(s) ENT ENT ED: Denies ear pain Cardiovascular Cardiovascular: Denies chest pain Respiratory/Chest Respiratory/Chest: Denies cough or dyspnea Gastrointestinal Gastrointestinal: Reports abdominal pain; Denies constipation, diarrhea, melena, nausea or vomiting Genitourinary Genitourinary ED: Denies dysuria or hematuria Musculoskeletal Musculoskeletal: Denies arthralgias or back pain Integumentary Denies abscess Neurologic Neurologic: Denies headache(s) Psychiatric Psychiatric: Denies anxiety Endocrine Endocrinology: Denies polydipsia Hematologic/Lymphatic Hematologic/Lymphatic : Denies easy bleeding Allergic/Immunologic Allergic/Immunologic ED: Denies mouth swelling, tongue swelling or urticaria EXAM Physical Exam Narrative Exam Narrative: 44-year-old male sitting upright in bed. Vital signs are stable afebrile. He does not look septic toxic he is in no distress. H EENT exam pupils round react light. Moist mucous membranes. Neck nontender no lymphadenopathy. Lungs clear to auscultation bilaterally. Heart regular rhythm rate about 95 no murmur. Chest wall ribs nontender. Abdomen soft nondistended normal bowel sounds without peritoneal signs. He has a well-healed periumbilical scar that is old. Left abdomen lateral to his umbilicus there is a ventral hernia. It is reducible. Is tender to palpation. Patient is obese. Right upper right lower quadrant are not tender. There is no signs of obstruction. Moving all 4 extremities. Nontender no edema. Back nontender. He is awake alert. No focal motor deficits. Const Vital Signs: 12/29/24 21:21 12/29/24 22:13 12/29/24 22:16 Temperature 98 F Temperature Source Oral Pulse Rate 98 86 86 R (more content not included)... Normal [facility] Eosinophil percentageOrdered By: Justin Cordero on 12-29-2024 Eosinophils/100 WBC (Bld) 1.7 % 0-5 [facility] Erythrocyte distribution wid th ratioOrdered By: Justin Cordero on 12-29-2024 Erythrocyte distribution width (RBC) [Ratio] 12.4 % 11.6-14.6 [facility] Erythrocyte distribution wid th standard deviationOrdered By: Justin Cordero on 12-29-2024 Erythrocyte distribution width (RBC) [Ratio] 40.5 fl 35.1-43.9 [facility] Glomerular filtration rate ( GFR) estimation/1.73 sq m using serum, plasma, or whole bOrdered By: Justin Cordero on 12-29-2024 GFR/1.73 sq M.predicted among non-blacks MDRD (S/P/Bld) [Vol rate/Area] 112 mL/min/{1.73_m2} >60 [facility] Comment on above: mL/min/1.73m2 CKD-EP I Creatinine Equation (2020) Hematocrit Auto (Bld) [Volum e fraction]Ordered By: Justin Cordero on 12-29-2024 Hematocrit (Bld) [Volume fraction] 43.2 % 40-54 [facility] Hemoglobin measurementOrdere d By: Justin Cordero on 12-29-2024 Hemoglobin (Bld) [Mass/Vol] 15.0 g/dL 13.0-16.5 [facility] Immature granulocytes/100 WB C Auto (Bld)Ordered By: Justin Cordero on 12-29-2024 Immature granulocytes/100 WBC (Bld) 0.300 % 0.0-0.9 [facility] Comment on above: IG% - Immature Granu locytes (promyelocytes, myelocytes and metamyelocytes) > 1% indicates that a LEFT SHIFT is Present. Laboratory - Chemistry and C hemistry - challengeOrdered By: Justin Cordero on 12-29-2024 AST [Catalytic activity/Vol] 21 U/L <38 [facility] Comment on above: Hemolysis present, R esults could be affected. Lipaseon 12-29-2024 Lipase [Catalytic activity/Vol] 28 U/L Normal 13-75 [facility] Comment on above: Result Comment: Plea note: LIPASE revised reference range effective 22. New Lipase methodology. Expected to produce lower values than the previous assay method. NEW Reference Range: 13 - 75 U/L Performed By: #### L 501.2450, L500.4050, L100.0100 ####[facility] [id number] [place], [place], [id number] Lipase measurementOrdered By : Justin Cordero on 12-29-2024 Lipase [Catalytic activity/Vol] 28 U/L 13-75 [facility] Comment on above: Please note:LIPASE r evised reference range effective 22. New Lipase methodology. Expected to produce lower values than the previous assay method. NEW Reference Range: 13 - 75 U/L MCV (mean corpuscular volume ) determinationOrdered By: Justin Cordero on 12-29-2024 MCV (RBC) [Entitic vol] 88.5 fL 80-94 [facility] Mean corpuscular hemoglobin (MCH) determinationOrdered By: Justin Cordero on 12-29-2024 MCH (RBC) [Entitic mass] 30.7 pg 27.0-32.0 [facility] Mean corpuscular hemoglobin concentration (MCHC) determinationOrdered By: Justin Cordero on 12-29-2024 MCHC (RBC) [Mass/Vol] 34.7 g/dL 32-36 [facility] Mean platelet volume determi nationOrdered By: Justin Cordero on 12-29-2024 Platelet mean volume (Bld) [Entitic vol] 9.5 fL 6.2-12.0 [facility] Monocyte percentageOrdered B y: Justin Cordero on 12-29-2024 Monocytes/100 WBC (Bld) 5.1 % 0-10 [facility] Neutrophil percentageOrdered By: Justin Cordero on 12-29-2024 Neutrophils/100 WBC (Bld) 61.9 % 47-70 [facility] Nucleated red blood cell per centageOrdered By: Justin Cordero on 12-29-2024 Nucleated RBC/100 WBC (Bld) [Ratio] 0 % 0-5 [facility] Platelet countOrdered By: Germán Cordero on 12-29-2024 Platelets (Bld) [#/Vol] 295 10*3/uL 150-450 [facility] Potassium measurement (mass/ volume)Ordered By: Justin Cordero on 12-29-2024 Potassium (Unsp spec) [Mass/Vol] 4.3 mmol/L 3.3-5.1 [facility] Comment on above: Hemolysis present, R esults could be affected. RBC Auto (Bld) [#/Vol]Ordere d By: Justin Cordero on 12-29-2024 RBC (Bld) [#/Vol] 4.88 10*6/uL 4.6-6.2 [facility] Serum creatinine measurement (mass/volume)Ordered By: Justin Cordero on 12-29-2024 Creatinine [Mass/Vol] 0.79 mg/dL 0.70-1.20 [facility] Serum globulin measurementOr dered By: Justin Cordero on 12-29-2024 Globulin (S) [Mass/Vol] 3.0 g/dL 2.2-4.[address] [facility] Serum glucose measurement (m ass/volume)Ordered By: Justin Codrero on 12-29-2024 Glucose [Mass/Vol] 100 mg/dL High 70-99 [facility] Serum or plasma alanine carrera otransferase (ALT) measurementOrdered By: Justin Cordero on 12-29-2024 ALT [Catalytic activity/Vol] 10 U/L <47 [facility] Serum or plasma albumin za urement (mass/volume)Ordered By: Justin Cordero on 12-29-2024 Albumin [Mass/Vol] 3.8 g/dL 3.5-5.0 [facility] Serum or plasma albumin/glob ulin mass ratioOrdered By: Justin Cordero on 12-29-2024 Albumin/Globulin [Mass ratio] 1.3 {ratio} 0.9-2.4 [facility] Serum or plasma alkaline carmen sphatase measurementOrdered By: Justin Cordero on 12-29-2024 ALP [Catalytic activity/Vol] 39 U/L Low 40-129 [facility] Serum or plasma calcium za urement (mass/volume)Ordered By: Justin Cordero on 12-29-2024 Calcium [Mass/Vol] 9.1 mg/dL 7.6-11.0 [facility] Serum or plasma urea nitroge n measurement (mass/volume)Ordered By: Justin Cordero on 12-29-2024 Urea nitrogen [Mass/Vol] 6 mg/dL 4-19 [facility] Sodium levelOrdered By: Justin Cordero on 12-29-2024 Sodium [Moles/Vol] 136 mmol/L 133-145 [facility] Total proteinOrdered By: Van Cordero on 12-29-2024 Protein [Mass/Vol] 6.8 g/dL 5.9-8.4 [facility] White blood cell (WBC) count Ordered By: Jutsin Cordero on 12-29-2024 WBC (Bld) [#/Vol] 11.7 10*3/uL High 4.4-11.0 [facility] Abdomen/Pelvis W IV Cont ONL Yon 12-09-2024 Abdomen/Pelvis W IV Cont ONLY [facility] Imaging Services [address] [place], [place] [id number] Abdomen/Pelvis W IV Cont ONLY MR#: [id number] Acct: [id number] Name: PATRICK KOROMA Rep #: [id number] : 1980 M 44 From: [place] MD PCP: FREDDY AnayaC Status: REG ER Study: Abdomen/Pelvis W IV Cont ONLY Date of Exam: Exam# [id number] Ordering Dr: Guero Baker DO PROCEDURE: ABDOMEN/PELVIS W IV CONT ONLY N/A REASON FOR EXAM: ABD PAIN / ? VENTRAL HERNIA TECHNIQUE: ABDOMEN/PELVIS W IV CONT ONLY Coronal and Sagittal reconstruction series were provided. CONTRAST: Isovue-350 VOLUME: 100 mL One or more dose reduction techniques were used (e.g., Automated exposure control, adjustment of the mA and/or kV according to patient size, use of iterative reconstruction technique. RADIATION DOSE SUMMARY: CTDlvol: 24.18 mGy DLP: 1455 mGycm COMPARISON: 06/01/2023. FINDINGS: Unchanged large anterior midline ventral hernia containing nonincarcerated fat. Surgical changes of the anterior abdominal wall. No CT evidence of associated acute abnormality. Unchanged bilateral fat containing inguinal hernias without incarceration. Mild diffuse thickening of the stomach, probably gastritis. The visualized lung bases are unremarkable. Normal liver. Normal gallbladder and extrahepatic biliary system. Normal spleen. Normal pancreas. Normal bilateral adrenal glands. Normal size of the right kidney. There is no right renal mass. There are no right renal calculi. There is no right hydronephrosis. Normal visualized right ureter. Normal size of the left kidney. There is no left renal mass. There are no left renal calculi. There is no left hydronephrosis. Normal visualized left ureter. Normal small intestine. Normal colon. The appendix is visualized and appears normal. There is no demonstrated peritoneal fluid. Mild atheromatous plaques of the abdominal aorta. Normal inferior vena cava. Normal retroperitoneum. Normal urinary bladder. There is no pelvic mass lesion or lymphadenopathy. There is no pelvic fluid. CT/Abdomen/Pelvis W IV Cont ONLY IMPRESSION: Unchanged large anterior midline ventral hernia containing nonincarcerated fat. Surgical changes of the anterior abdominal wall. No CT evidence of associated acute abnormality. Unchanged bilateral fat containing inguinal hernias without incarceration. Mild diffuse thickening of the stomach, probably gastritis. Reading Location: [place] [address] CC: ERIC Starkey; Guero Baker DO Experience Design Director: Signed Normal [facility] Absolute lymphocyte countOrd ered By: Guero Baker on 12-09-2024 Lymphocytes Auto (Unsp spec) [#/Vol] 3.41 10*3/uL 0.83-4.51 [facility] Absolute neutrophil countOrd ered By: Guero Baker on 12-09-2024 Neutrophils (Bld) [#/Vol] 6.8 10*3/uL 2.0-7.7 [facility] Anion gap in Serum or Plasma Ordered By: Guero Baker on 12-09-2024 Anion gap [Moles/Vol] 11 mmol/L 5-15 [facility] Automated lymphocyte count a s percentage of total leukocytesOrdered By: Guero Baker on 12-09-2024 Lymphocytes/100 WBC Auto (Unsp spec) 30.2 % 19-41 [facility] BUN/creatinine ratioOrdered By: Guero Baker on 12-09-2024 Urea nitrogen/Creatinine [Mass ratio] 12.9 mg/mg 10-20 [facility] Basic Metabolic Profile (BMP )on 12-09-2024 GFR/1.73 sq M.predicted among non-blacks MDRD (S/P/Bld) [Vol rate/Area] 108 mL/min/{1.73_m2} Normal >60 [facility] Comment on above: Performed By: #### L 501.2450, L500.2500, L500.3400 #### [facility] [address] [place], [address] Basophil percentageOrdered B y: Guero Baker on 12-09-2024 Basophils/100 WBC (Bld) 0.8 % 0-[address] [facility] Bilirubin directOrdered By: Guero Baker on 12-09-2024 Bilirubin.direct [Mass/Vol] mg/dL 0.00-0.30 [facility] Comment on above: Hemolysis present, R esults could be affected. Bilirubin, totalOrdered By: Guero Baker on 12-09-2024 Bilirubin [Mass/Vol] mg/dL 0.00-1.30 [facility] CBC W/Diff, Automatedon 11-15 Absolute Lymph 3.41 X10 3/uL Normal 0.83-4.51 [facility] Comment on above: Performed By: #### L 503.6005, L100.0100 #### [facility] [address] [place], [address] Absolute Neut 6.8 X10 3/uL Normal 2.0-7.7 [facility] Comment on above: Performed By: #### L 503.6005, L100.0100 #### [facility] [address] [place], [address] Basophils/100 WBC (Bld) 0.8 % Normal 0-[address] [facility] Comment on above: Performed By: #### L 503.6005, L100.0100 #### [facility] [address] [place], [address] Eosinophils/100 WBC (Bld) 2.0 % Normal 0-5 [facility] Comment on above: Performed By: #### L 503.6005, L100.0100 #### [facility] [address] [place], [address] Erythrocyte distribution width (RBC) [Ratio] 12.4 % Normal 11.6-14.6 [facility] Comment on above: Performed By: #### L 503.6005, L100.0100 #### [facility] [address] [place], [address] Hematocrit (Bld) [Volume fraction] 44.7 % Normal 40-54 [facility] Comment on above: Performed By: #### L 503.6005, L100.0100 #### [facility] [address] [place], [address] Hemoglobin (Bld) [Mass/Vol] 15.2 g/dL Normal 13.0-16.5 [facility] Comment on above: Performed By: #### L 503.6005, L100.0100 #### [facility] [address] [place], [address] IG% 0.400 Normal 0.0-0.9 [facility] Comment on above: Result Comment: IG% - Immature Granulocytes (promyelocytes, myelocytes and metamyelocytes) > 1% indicates that a LEFT SHIFT is Present. Performed By: #### L 503.6005, L100.0100 #### [facility] [address] [place], [address] Lymphocytes/100 WBC (Bld) 30.2 % Normal 19-41 [facility] Comment on above: Performed By: #### L 503.6005, L100.0100 #### [facility] [address] [place], [address] MCH (RBC) [Entitic mass] 31.1 pg Normal 27.0-32.0 [facility] Comment on above: Performed By: #### L 503.6005, L100.0100 #### [facility] [address] [place], [address] MCHC (RBC) [Mass/Vol] 34.0 g/dL Normal 32-36 [facility] Comment on above: Performed By: #### L 503.6005, L100.0100 #### [facility] [address] [place], [address] MCV (RBC) [Entitic vol] 91.4 fL Normal 80-[address] [facility] Comment on above: Performed By: #### L 503.6005, L100.0100 #### [facility] [address] [place], [address] Monocytes/100 WBC (Bld) 6.0 % Normal 0-[address] [facility] Comment on above: Performed By: #### L 503.6005, L100.0100 #### [facility] [address] [place], [address] Neutrophils/100 WBC (Bld) 60.6 % Normal 47-70 [facility] Comment on above: Performed By: #### L 503.6005, L100.0100 #### [facility] [address] [place], [address] Nucleated RBC (Bld) [#/Vol] 0 10*3/uL Normal 0-5 [facility] Comment on above: Performed By: #### L 503.6005, L100.0100 #### [facility] [address] [place], [address] Platelet mean volume (Bld) [Entitic vol] 9.4 fL Normal 6.2-12.0 [facility] Comment on above: Performed By: #### L 503.6005, L100.0100 #### [facility] [address] [place], [address] Platelets (Bld) [#/Vol] 295 10*3/uL Normal 150-450 [facility] Comment on above: Performed By: #### L 503.6005, L100.0100 #### [facility] [address] [place], [address] RBC (Bld) [#/Vol] 4.89 10*6/uL Normal 4.6-6.2 [facility] Comment on above: Performed By: #### L 503.6005, L100.0100 #### [facility] [address] [place], [address] RDW SD 41.4 fl Normal 35.1-43.9 [facility] Comment on above: Performed By: #### L 503.6005, L100.0100 #### [facility] [address] [place], [address] WBC (Bld) [#/Vol] 11.3 10*3/uL High 4.4-11.0 [facility] Comment on above: Performed By: #### L 503.6005, L100.0100 #### [facility] [address] [facility] [place], [address] Carbon dioxide, total [Moles /volume] in Central venous bloodOrdered By: Guero Baker on 12-09-2024 CO2 [Moles/Vol] 23.5 mmol/L 21.0-32.0 [facility] Chloride assayOrdered By: Maru Baker on 12-09-2024 Chloride [Moles/Vol] 106 mmol/L 98-108 [facility] Emergency Department Summary on 12-09-2024 Emergency Department Summary [facility] Medical Records Department [address] [place] [address] Emergency Department Summary 12/09/24 MR#: [id number] Acct: [id number] Name: PATRICK KOROMA Rep #: [id number] : 1980 44 From: Guero Baker DO PCP: ERIC Anaya Status:DEP ER Location: ED HPI History of Present Illness Chief Complaint: Abd Pain Informant: patient and spouse/S.O. Narrative Narrative: Patient is a 44-year-old male with past medical history of ventral hernia. He states he has needed it repaired multiple time and it is to the point where the hernia now is large and will most likely only be able to repaired by a specialist at [facility]. He denies any recent trauma but states that he has been having increasing pain in the mid abdomen which feels similar nature to his previous bouts of hernia complication and therefore comes in for evaluation [facility] Medical History Seroma after procedure Influenza [...] / Time adhesive tape Allergy Hives Verified 12/08/24 23:34 cephalexin monohydrate (From Allergy Anaphylaxis Verified 12/08/24 23:34 Keflex) levetiracetam (From Keppra) Allergy Hives Verified 12/08/24 23:34 morphine Allergy Shortness Verified 12/08/24 23:34 of breath naproxen (From Naprosyn) Allergy Hives Verified 12/08/24 23:34 Family History Grandmother Arthritis Mother Arthritis Seizures Father Colon cancer Diabetes Brother Heart disease Surgical History H/O hernia repair History of appendectomy Social History household members: spouse Smoking Status: Current every day smoker tobacco type: cigarettes alcohol intake: never ROS ROS ED Constitutional Constitutional ED: Denies chills or fever(s) Eyes Eyes: Denies change in vision ENT ENT ED: Denies sore throat Cardiovascular Cardiovascular: Denies chest pain Respiratory/Chest Respiratory/Chest: Denies cough or dyspnea Gastrointestinal Gastrointestinal: Reports abdominal pain; Denies constipation, diarrhea, nausea or vomiting Genitourinary Genitourinary ED: Denies dysuria Musculoskeletal Musculoskeletal: Denies back pain or myalgias Integumentary Denies rash Neurologic Neurologic: Denies headache(s) Hematologic/Lymphatic Hematologic/Lymphatic : Denies easy bleeding or easy bruising EXAM Physical Exam Const Vital Signs: 12/08/24 23:34 Temperature 98 F Temperature Source Oral Pulse Rate 104 H Respiratory Rate 22 H Blood Pressure 175/105 H Blood Pressure Mean 128 Pulse Ox 99 Oxygen Delivery Method Room Air Positive well nourished, well developed and obese General Appearance ED: well developed; Negative for pallor Nutritional Appearance: obese HEENT Reports moist mucous membranes HEENT Narrative: Normocephalic atraumatic No tongue or lip swelling no oral lesions no airway edema or compromise No secondary findings in the posterior pharynx to suggest infection Eyes PERRL and EOMs intact bilaterally General Eye ED: Negative for scleral icterus Neck supple Neck Narrative: No nuchal rigidity or meningeal signs Resp normal respiratory effort and clear to auscultation bilaterally Resp Narrative: Breath sounds are diminished throughout but overall clear to auscultation without signs of respiratory distress Cardio regular rate and regular rhythm Rate: other Other Details: Heart is regular rate and rhythm Radial and carotid pulses are equal and symmetric GI non-distended GI Narrative: Abdomen is soft and nondistended with normal active bowel sounds. Patient does have a large ventral hernia noted without obvious signs of hernia incarceration or obstruction. No pulsatile mass. No peritoneal signs. Auscultation: normoactive bowel sounds Palpation: soft Back/Spine no CVA tenderness Extremity normal to inspection Neuro oriented x3, CN's II-XII intact bilaterally and no sensory deficits noted Sensorium / Orientation: alert Motor Exam: strength 5/5 throughout Psych mental status grossly normal Skin no rashes or lesions noted General Skin Exam: Negative for jaundice or pallor MDM MDM MDM Narrative Medical decision making narrative: Patient presented to the ER hyper (more content not included)... Normal [facility] Eosinophil percentageOrdered By: Guero Baker on 12-09-2024 Eosinophils/100 WBC (Bld) 2.0 % 0-5 [facility] Erythrocyte distribution wid th ratioOrdered By: Guero Baker on 12-09-2024 Erythrocyte distribution width (RBC) [Ratio] 12.4 % 11.6-14.6 [facility] Erythrocyte distribution wid th standard deviationOrdered By: Guero Baker on 12-09-2024 Erythrocyte distribution width (RBC) [Ratio] 41.4 fl 35.1-43.9 [facility] Glomerular filtration rate ( GFR) estimation/1.73 sq m using serum, plasma, or whole bOrdered By: Guero Baker on 12-09-2024 GFR/1.73 sq M.predicted among non-blacks MDRD (S/P/Bld) [Vol rate/Area] 108 mL/min/{1.73_m2} >60 [facility] Hematocrit Auto (Bld) [Volum e fraction]Ordered By: Guero Baker on 12-09-2024 Hematocrit (Bld) [Volume fraction] 44.7 % 40-54 [facility] Hemoglobin measurementOrdere d By: Guero Baker on 12-09-2024 Hemoglobin (Bld) [Mass/Vol] 15.2 g/dL 13.0-16.5 [facility] Immature granulocytes/100 WB C Auto (Bld)Ordered By: Guero Baker on 12-09-2024 Immature granulocytes/100 WBC (Bld) 0.400 % 0.0-0.9 [facility] Comment on above: IG% - Immature Granu locytes (promyelocytes, myelocytes and metamyelocytes) > 1% indicates that a LEFT SHIFT is Present. Laboratory - Chemistry and C hemistry - challengeOrdered By: Guero Baker on 12-09-2024 AST [Catalytic activity/Vol] 17 U/L <38 [facility] Comment on above: Hemolysis present, R esults could be affected. Lactic Acidon 12-09-2024 Lactate [Moles/Vol] 1.1 mmol/L Normal 0.0-2.0 [facility] Comment on above: Order Comment: Y Performed By: #### L 503.6005, L100.0100 #### [facility] [address] [place], [place], [address] Lactic acid measurementOrder ed By: Guero Baker on 12-09-2024 Lactate [Moles/Vol] 1.1 mmol/L 0.0-2.0 [facility] Lipaseon 12-09-2024 Lipase [Catalytic activity/Vol] 36 U/L Normal 13-75 [facility] Comment on above: Result Comment: Scout kline note: LIPASE revised reference range effective 22. New Lipase methodology. Expected to produce lower values than the previous assay method. NEW Reference Range: 13 - 75 U/L Performed By: #### L 501.2450, L500.2500, L500.3400 #### [facility] [address] [place], [address] Lipase measurementOrdered By : Guero Baker on 12-09-2024 Lipase [Catalytic activity/Vol] 36 U/L 13-75 [facility] Comment on above: Please note:LIPASE r evised reference range effective 22. New Lipase methodology. Expected to produce lower values than the previous assay method. NEW Reference Range: 13 - 75 U/L Liver Profileon 12-09-2024 Albumin [Mass/Vol] 3.7 g/dL Normal 3.5-5.0 [facility] Comment on above: Performed By: #### L 501.2450, L500.2500, L500.3400 #### [facility] [address] [place], [address] ALK PHOS 42 U/L Normal 40-129 [facility] Comment on above: Performed By: #### L 501.2450, L500.2500, L500.3400 #### [facility] [address] [place], [address] ALT [Catalytic activity/Vol] 15 U/L Normal <=46 [facility] Comment on above: Performed By: #### L 501.2450, L500.2500, L500.3400 #### [facility] [address] [place], [address] AST [Catalytic activity/Vol] 17 U/L Normal <=37 [facility] Comment on above: Result Comment: Hemo lysis present, Results??could be affected. ?? Performed By: #### L 501.2450, L500.2500, L500.3400 #### [facility] [address] [place], [address] D BILI < 0.08 Normal 0.00-0.30 [facility] Comment on above: Result Comment: Hemo lysis present, Results??could be affected. ?? Performed By: #### L 501.2450, L500.2500, L500.3400 #### [facility] [address] [place], [address] Globulin (S) [Mass/Vol] 2.8 g/dL Normal 2.2-4.2 [facility] Comment on above: Performed By: #### L 501.2450, L500.2500, L500.3400 #### [facility] [address] [place], [address] T BILI < 0.15 Normal 0.00-1.30 [facility] Comment on above: Performed By: #### L 501.2450, L500.2500, L500.3400 #### [facility] [address] [place], [address] T PROT 6.5 g/dL Normal 5.9-8.4 [facility] Comment on above: Performed By: #### L 501.2450, L500.2500, L500.3400 #### [facility] [address] [place], [address] MCV (mean corpuscular volume ) determinationOrdered By: Guero Baker on 12-09-2024 MCV (RBC) [Entitic vol] 91.4 fL 80-94 [facility] Mean corpuscular hemoglobin (MCH) determinationOrdered By: Guero Baker on 12-09-2024 MCH (RBC) [Entitic mass] 31.1 pg 27.0-32.0 [facility] Mean corpuscular hemoglobin concentration (MCHC) determinationOrdered By: Guero Bakre on 12-09-2024 MCHC (RBC) [Mass/Vol] 34.0 g/dL 32-36 [facility] Mean platelet volume determi nationOrdered By: Guero Baker on 12-09-2024 Platelet mean volume (Bld) [Entitic vol] 9.4 fL 6.2-12.0 [facility] Monocyte percentageOrdered B y: Guero Baker on 12-09-2024 Monocytes/100 WBC (Bld) 6.0 % 0-[address] [facility] Neutrophil percentageOrdered By: Guero Baker on 12-09-2024 Neutrophils/100 WBC (Bld) 60.6 % 47-70 [facility] Nucleated red blood cell per centageOrdered By: Guero Baker on 12-09-2024 Nucleated RBC/100 WBC (Bld) [Ratio] 0 % 0-5 [facility] Platelet countOrdered By: Maru Baker on 12-09-2024 Platelets (Bld) [#/Vol] 295 10*3/uL 150-450 [facility] Potassium measurement (mass/ volume)Ordered By: Guero Baker on 12-09-2024 Potassium (Unsp spec) [Mass/Vol] 4.0 mmol/L 3.3-5.1 [facility] Comment on above: Hemolysis present, R esults could be affected. RBC Auto (Bld) [#/Vol]Ordere d By: Guero Baker on 12-09-2024 RBC (Bld) [#/Vol] 4.89 10*6/uL 4.6-6.2 [facility] Serum creatinine measurement (mass/volume)Ordered By: Guero Baker on 12-09-2024 Creatinine [Mass/Vol] 0.87 mg/dL 0.70-1.20 [facility] Serum globulin measurementOr dered By: Guero Baker on 12-09-2024 Globulin (S) [Mass/Vol] 2.8 g/dL 2.2-4.[address] [facility] Serum glucose measurement (m ass/volume)Ordered By: Guero Baker on 12-09-2024 Glucose [Mass/Vol] 105 mg/dL High 70-99 [facility] Serum or plasma alanine carrera otransferase (ALT) measurementOrdered By: Guero Baker on 12-09-2024 ALT [Catalytic activity/Vol] 15 U/L <47 [facility] Serum or plasma albumin za urement (mass/volume)Ordered By: Guero Baker on 12-09-2024 Albumin [Mass/Vol] 3.7 g/dL 3.5-5.0 [facility] Serum or plasma alkaline carmen sphatase measurementOrdered By: Guero Baker on 12-09-2024 ALP [Catalytic activity/Vol] 42 U/L 40-129 [facility] Serum or plasma calcium za urement (mass/volume)Ordered By: Guero Baker on 12-09-2024 Calcium [Mass/Vol] 8.7 mg/dL 7.6-11.0 [facility] Serum or plasma urea nitroge n measurement (mass/volume)Ordered By: Guero Baker on 12-09-2024 Urea nitrogen [Mass/Vol] 11 mg/dL 4-19 [facility] Sodium levelOrdered By: Scott Baker on 12-09-2024 Sodium [Moles/Vol] 140 mmol/L 133-145 [facility] Total proteinOrdered By: Yovani Baker on 12-09-2024 Protein [Mass/Vol] 6.5 g/dL 5.9-8.4 [facility] White blood cell (WBC) count Ordered By: Guero Baker on 12-09-2024 WBC (Bld) [#/Vol] 11.3 10*3/uL High 4.4-11.0 [facility] Emergency Department Summary on 12-07-[address] [facility] Medical Records Department [address] [place] [address] Emergency Department Summary 12/07/24 MR#: [id number] Acct: [id number] Name: PATRICK KOROMA Rep #: [id number] : 1980 44 From: Guevara Choi MD PCP: ERIC Anaya Status:REG ER Location: ED HPI History of Present Illness Chief Complaint: Upper Extremity Injury Informant: patient Narrative Narrative: During 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 Ronlf-igsl-ktmqdzwi. [facility] Medical History Seroma after procedure Influenza [...] abnormality of the right hand. Reading Location: [facility] Discharge Plan Triage Chief Complaint: Upper Extremity Injury ED Provider: Guevara Choi Dx/Rx/DC Orders Clinical Impression: Contusion of right thumb with damage to nail, initial encounter Instructions: ED Finger or Toe Contusion Prescriptions: No Action NK Primary Care Provider: Viola Starkey NP Referrals: Viola Starkey NP, MAKEUP ARTISTRY INSTRUCTOR-C [Primary Care Provider] - 10-14 Days if not better Print La (more content not included)... Normal [facility] Hand Min 3 Viewson 5 Hand Min 3 Views [facility] Imaging Services [address] [place] [address] Hand Min 3 Views MR#: [id number] Acct: [id number] Name: PATRICK KOROMA Rep #: [id number] : 1980 M 44 From: Stephan Ba MD PCP: ERIC Anaya Status: PRE ER Study: Hand Min 3 Views Date of Exam: 12/06/24 Exam# [id number] Ordering Dr: Guevara Choi MD PROCEDURE: HAND MIN 3 VIEWS 12/06/2024 REASON FOR EXAM: INJURY TECHNIQUE: HAND MIN 3 VIEWS COMPARISON: None FINDINGS: No fracture or traumatic malalignment. Joint spaces are predominantly maintained. Bone mineral density is subjectively normal. The soft tissues are unremarkable. RAD/Hand Min 3 Views IMPRESSION: No acute osseous abnormality of the right hand. Reading Location: [facility] CC: ERIC Starkey; Dr. Guevara Choi MD Experience Design Director: Signed Normal [facility] Clavicleon 09-19-2024 Clavicle [facility] Imaging Services [address] [place] [address] Clavicle MR#: [id number] Acct: [id number] Name: PATRICK KOROMA Rep #: [id number] : 1980 M 44 From: Kalli Tena DO PCP: ERIC Anaya Status: REG ER Study: Clavicle Date of Exam: 09/19/24 Exam# [id number] Ordering Dr: Brian Maldonado MD PROCEDURE: CLAVICLE 09/19/2024 REASON FOR EXAM: TRAUMA TECHNIQUE: Two views of the right clavicle were obtained COMPARISON: None FINDINGS: Bones: No acute fracture. Joints: Joint spaces are preserved. Soft tissues: No soft tissue abnormality. RAD/Clavicle IMPRESSION: NO EVIDENCE OF CLAVICLE FRACTURE Reading Location: [facility] CC: ERIC Starkey; Dr. Brian Maldonado MD Experience Design Director: Signed [facility] Emergency Department Summary on 09-19-2024 Emergency Department Summary [facility] Medical Records Department [address] [place] [address] Emergency Department Summary 09/19/24 MR#: [id number] Acct: [id number] Name: PATRICK KOROMA Rep #: [id number] : 1980 44 From: Brian Maldonado MD PCP: ERIC Anaya Status:REG ER Location: ED HPI History of Present Illness Chief Complaint: Upper Extremity Injury Narrative Narrative: 44-year-old male, vvaaj-sisj-rrpweyec, presents with injury to his right shoulder [...] raise his right arm. Denies other injuries. [facility] Medical History Seroma after procedure Influenza [...] clavicle and shoulder pain worse with movement. Looxa-jctu-uvgcluct. Denies hitting of his head or loss [...] AC joint separation. Patient was given 1 [place] tablet here for analgesia and x-rays obtained [...] not improving. I feel he can take vesv-fif-whqlici medications for analgesia. Return instructions to the emergency department were reviewed. Disposition is discharged home in stable condition. History Recor (more content not included)... Normal [facility] Shoulder min 2 Viewson 09-19 Shoulder min 2 Views [facility] Imaging Services [address] [place] [address] Shoulder min 2 Views MR#: [id number] Acct: [id number] Name: PATRICK KOROMA Rep #: [id number] : 1980 M 44 From: Kalli Tena DO PCP: ERIC Anaya Status: REG ER Study: Shoulder min 2 Views Date of Exam: 09/19/24 Exam# [id number] Ordering Dr: Brian Maldonado MD PROCEDURE: SHOULDER [...] CC: ERIC Starkey; Dr. Brian Maldonado MD Experience Design Director: Signed Normal [facility] .Auto Diffon 09-08-2024 Basophil, Absolute 0.1 10 3/mcL Normal 0.0-0.2 [facility] Comment on above: Performed By: #### A DIFF, CMP, CBC, LIPID, GFR, ANEU #### [address] [address] Basophils/100 WBC (Bld) 1.0 % Normal 0.0-2.5 [facility] Comment on above: Performed By: #### A DIFF, CMP, CBC, LIPID, GFR, ANEU #### [address] [address] Eosinophil, Absolute 0.1 10 3/mcL Normal 0.0-0.7 [facility] Comment on above: Performed By: #### A DIFF, CMP, CBC, LIPID, GFR, ANEU #### [address] [address] Eosinophils/100 WBC (Bld) 0.8 % Normal 0.0-7.0 [facility] Comment on above: Performed By: #### A DIFF, CMP, CBC, LIPID, GFR, ANEU #### [address] [address] Lymphocyte, Absolute 2.2 10 3/mcL Normal 0.9-4.3 [facility] Comment on above: Performed By: #### A DIFF, CMP, CBC, LIPID, GFR, ANEU #### [address] [address] Lymphocytes/100 WBC (Bld) 17.9 % Low 20.0-40.0 [facility] Comment on above: Performed By: #### A DIFF, CMP, CBC, LIPID, GFR, ANEU #### [address] [address] Monocyte, Absolute 0.8 10 3/mcL Normal 0.1-1.4 [facility] Comment on above: Performed By: #### A DIFF, CMP, CBC, LIPID, GFR, ANEU #### [address] [address] Monocytes/100 WBC (Bld) 6.5 % Normal 2.0-13.0 [facility] Comment on above: Performed By: #### A DIFF, CMP, CBC, LIPID, GFR, ANEU #### [address] [address] Neutrophils/100 WBC (Bld) 73.8 % Normal 50.0-75.0 [facility] Comment on above: Performed By: #### A DIFF, CMP, CBC, LIPID, GFR, ANEU #### [address] [address] .GFRon 09-08-2024 Estimated Glomerular Filtration Rate 99 ml/min/1.73sqm Normal [facility] Comment on above: Result Comment: Stages [...] DIFF, CMP, CBC, LIPID, GFR, ANEU #### [address] [address] .NEUABSon 09-08-2024 Neutrophil, Absolute 9.2 10 3/mcL High 2.3-8.1 [facility] Comment on above: Performed By: #### A DIFF, CMP, CBC, LIPID, GFR, ANEU #### [address] [address] CBCon 09-08-2024 Erythrocyte distribution width (RBC) [Ratio] 13.3 % Normal 11.5-15.5 [facility] Comment on above: Performed By: #### A DIFF, CMP, CBC, LIPID, GFR, ANEU #### [address] [address] Hematocrit (Bld) [Volume fraction] 45.6 % Normal 40.0-52.0 [facility] Comment on above: Performed By: #### A DIFF, CMP, CBC, LIPID, GFR, ANEU #### [address] [address] Hgb 15.3 G/dL Normal 13.0-17.5 [facility] Comment on above: Performed By: #### A DIFF, CMP, CBC, LIPID, GFR, ANEU #### [address] [address] MCH (RBC) [Entitic mass] 31.0 pg Normal 27.0-33.0 [facility] Comment on above: Performed By: #### A DIFF, CMP, CBC, LIPID, GFR, ANEU #### [address] [address] MCHC 33.5 G/dL Normal 32.0-36.0 [facility] Comment on above: Performed By: #### A DIFF, CMP, CBC, LIPID, GFR, ANEU #### [address] [address] MCV (RBC) [Entitic vol] 92.3 fL Normal 81.0-100.0 [facility] Comment on above: Performed By: #### A DIFF, CMP, CBC, LIPID, GFR, ANEU #### [address] [address] Platelet 297 10 3/mcL Normal 150-450 [facility] Comment on above: Performed By: #### A DIFF, CMP, CBC, LIPID, GFR, ANEU #### [address] [address] Platelet mean volume (Bld) [Entitic vol] 8.0 fL Normal 6.4-10.5 [facility] Comment on above: Performed By: #### A DIFF, CMP, CBC, LIPID, GFR, ANEU #### [place] [address] RBC 4.94 10 6/mcL Normal 4.50-6.00 [facility] Comment on above: Performed By: #### A DIFF, CMP, CBC, LIPID, GFR, ANEU #### [place] [address] WBC 12.5 10 3/mcL High 4.5-10.8 [facility] Comment on above: Performed By: #### A DIFF, CMP, CBC, LIPID, GFR, ANEU #### [address] [address] CMPon 09-08-2024 Albumin Level 3.7 G/dL Normal 3.5-5.0 [facility] Comment on above: Performed By: #### A DIFF, CMP, CBC, LIPID, GFR, ANEU #### [address] [address] Albumin/Globulin [Mass ratio] 0.9 {ratio} Low 1.1-2.5 [facility] Comment on above: Performed By: #### A DIFF, CMP, CBC, LIPID, GFR, ANEU #### [address] [address] ALP [Catalytic activity/Vol] 51 U/L Normal 40-135 [facility] Comment on above: Performed By: #### A DIFF, CMP, CBC, LIPID, GFR, ANEU #### [address] [address] ALT [Catalytic activity/Vol] 17 U/L Normal 16-63 [facility] Comment on above: Performed By: #### A DIFF, CMP, CBC, LIPID, GFR, ANEU #### [address] [address] AST [Catalytic activity/Vol] 15 U/L Normal 10-40 [facility] Comment on above: Performed By: #### A DIFF, CMP, CBC, LIPID, GFR, ANEU #### [address] [address] Bili Total 0.2 mg/dL Normal 0.2-1.0 [facility] Comment on above: Result Comment: Use of this assay is not recommended for patients undergoing treatment with eltrombopag due to the potential for falsely elevated results. Performed By: #### A DIFF, CMP, CBC, LIPID, GFR, ANEU #### [place] [address] BUN/Creatinine Ratio 11 ratio Normal 7-27 [facility] Comment on above: Performed By: #### A DIFF, CMP, CBC, LIPID, GFR, ANEU #### [address] [address] Calcium [Mass/Vol] 9.7 mg/dL Normal 8.4-10.2 [facility] Comment on above: Performed By: #### A DIFF, CMP, CBC, LIPID, GFR, ANEU #### [address] [address] Chloride [Moles/Vol] 99 mmol/L Normal 98-107 [facility] Comment on above: Performed By: #### A DIFF, CMP, CBC, LIPID, GFR, ANEU #### [address] [address] CO2 [Moles/Vol] 27 mmol/L Normal 22-29 [facility] Comment on above: Performed By: #### A DIFF, CMP, CBC, LIPID, GFR, ANEU #### [address] [address] Creatinine [Mass/Vol] 0.96 mg/dL Normal 0.70-1.30 [facility] Comment on above: Result Comment: Test ing performed on Siemens Dimension EXL analyzer using a modified kinetic Elyse technique. Performed By: #### A DIFF, CMP, CBC, LIPID, GFR, ANEU #### [address] [address] Electrolyte Balance 8.0 mEq/L Normal 4.0-15.0 [facility] Comment on above: Performed By: #### A DIFF, CMP, CBC, LIPID, GFR, ANEU #### [address] [address] Globulin 4.0 G/dL High 1.5-3.8 [facility] Comment on above: Performed By: #### A DIFF, CMP, CBC, LIPID, GFR, ANEU #### [address] [address] Glucose [Mass/Vol] 91 mg/dL Normal 70-105 [facility] Comment on above: Performed By: #### A DIFF, CMP, CBC, LIPID, GFR, ANEU #### [place] [address] Potassium [Moles/Vol] 4.4 mmol/L Normal 3.5-5.1 [facility] Comment on above: Performed By: #### A DIFF, CMP, CBC, LIPID, GFR, ANEU #### [address] [address] Sodium [Moles/Vol] 134 mmol/L Low 136-145 [facility] Comment on above: Performed By: #### A DIFF, CMP, CBC, LIPID, GFR, ANEU #### [address] [address] Total Protein 7.7 G/dL Normal 6.4-8.2 [facility] Comment on above: Performed By: #### A DIFF, CMP, CBC, LIPID, GFR, ANEU #### [address] [address] Urea nitrogen [Mass/Vol] 11 mg/dL Normal 7-18 [facility] Comment on above: Performed By: #### A DIFF, CMP, CBC, LIPID, GFR, ANEU #### [address] [address] LIPIDon 09-08-2024 Cholesterol [Mass/Vol] 177 mg/dL Normal 0-200 [facility] Comment on above: Result Comment: Chol esterol Reference Interval: Less than 200 Desirable 200-239 Borderline high risk 240 and above High risk Performed By: #### A DIFF, CMP, CBC, LIPID, GFR, ANEU #### [place] [address] [place], [place] [address] Cholesterol in HDL [Mass/Vol] 44 mg/dL Normal 40-60 [facility] Comment on above: Performed By: #### A DIFF, CMP, CBC, LIPID, GFR, ANEU #### [place] [place], [place] [address] Cholesterol in LDL [Mass/Vol] 108 mg/dL Normal 0-130 [facility] Comment on above: Performed By: #### A DIFF, CMP, CBC, LIPID, GFR, ANEU #### [address] [place], [place] [address] Triglyceride [Mass/Vol] 125 mg/dL Normal 0-150 [facility] Comment on above: Result Comment: Trig lyceride Reference Interval: Less than 150 Normal 150-199 Borderline high risk 200-499 High risk 500 or higher Very high risk Performed By: #### A DIFF, CMP, CBC, LIPID, GFR, ANEU #### [place] [address] [place], [place] [address] XR FOOT MINIMUM 3 VIEWS LEFT on [...] 09/08/2024 12:53:40 AM Ordering Provider: SHANIKA TIRADO [facility] Emergency Department Summary on 08-24-[address] [facility] Medical Records Department [address] [place] [address] Emergency Department Summary 08/24/24 MR#: [id number] Acct: [id number] Name: PATRICK KOROMA Rep #: [id number] : 1980 44 From: Cristian Tate PCP: Care Physician,No Primary Status:DEP ER Location: ED HPI History of Present Illness Chief Complaint: Upper Extremity Injury Informant: patient Narrative Narrative: Mmuap-vrpf-qlabjasj male presents right shoulder injury 2 hours [...] No surgical intervention. Prior similar symptoms: Yes [facility] Medical History Seroma after procedure Influenza due [...] Medical decision (more content not included)... Normal [facility] Shoulder min 2 Viewson 08-24 Shoulder min 2 Views [facility] Imaging Services [address] [place] [id number] Shoulder min 2 Views MR#: [id number] Acct: [id number] Name: PATRICK KOROMA Rep #: [id number] : 1980 M 44 From: Ke Mario PCP: Care Physician,No Primary Status: PRE ER Study: Shoulder min 2 Views Date of Exam: 08/24/24 Exam# [id number] Ordering Dr: Provider,Ed P. PROCEDURE: Right shoulder radiographs REASON FOR EXAM: PAIN, LOSS OF MOBILITY TECHNIQUE: Four views of the right shoulder COMPARISON: None. FINDINGS: See impression RAD/Shoulder min 2 Views IMPRESSION: Negative for acute fracture or malalignment. 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 Mild acromioclavicular joint osteoarthritis. Reading Location: [facility] CC: ED PHYSICIAN PROVIDER; No Primary Care Physician Experience Design Director: Signed Normal [facility] Study Interpretation of outs augusta studyon [...] 05/16/2024 10:27:09 PM Ordering Provider: RADHA Nelson [facility] Emergency Department Summary on 02-24-[address] [facility] Medical Records Department [address] [place] [address] Emergency Department Summary 02/24/24 MR#: [id number] Acct: [id number] Name: PATRICK KOROMA Rep #: [id number] : 1980 44 From: Guevara Choi MD PCP: Care Physician,No Primary Status:DEP ER Location: ED HPI History of Present Illness Chief Complaint: Lower Extremity Injury Informant: patient Narrative Narrative: Patient was working at the local [employer], he jumped down off of an elevated surface landing on his feet, with sudden onset of pain followed by swelling in the left midfoot. He did not twist anything. Denies any ankle pain. To bear weight but hurts. Denies any pain or injury elsewhere. [facility] Medical History Seroma after procedure Influenza [...] 0:12 EDT Reading Location ID and State: [facility] / [place] Tel , Service support , Discharge Plan Triage Chief Complaint: Lower Extremity Injury ED Provider: Guevara Choi/ (more content not included)... Normal [facility] Foot min 3 Viewson 4 Foot min 3 Views [facility] Imaging Services [address] [place], [place] [address] Foot min 3 Views MR#: [id number] Acct: [id number] Name: PATRICK KOROMA Rep #: [id number] : 1980 M 44 From: Vineet Segura PCP: Care Physician,No Primary Status: REG ER Study: Foot min 3 Views Date of Exam: 02/24/24 Exam# [id number] Ordering Dr: Guevara Choi [place] [id number] INDICATION: injury EXAMINATION/TECHNIQUE : X-RAY - LEFT [...] Guevara Choi MD; No Primary Care Physician Experience Design Director: Signed Normal [facility] CNCOon 10-21-2023 CNCO Letter Text Normal [facility] CNPNon 10-10-2023 CNPN Telephone (SPNSMN) PATRICK KOROMA ([id number]) 1980 M Date Time Provider Department 10/10/23 JULIOCESAR BORRERO During your visit today, we recorded the following information about you: hCristy Rodrigez RN 10/10/2023 11:07 AM Signed Neuro SPINE CARE COORDINATION QUICK NOTE Dr. Borrero received referral from Dr. Richardson. Ordered placed for spine med injection with Dr. Hannah. Called patient to advise. Received message 'calling restrictions that have prevented the completion of the call' MYC message sent. Christy Rodrigez RN BSN Nurse [employer] Christy Rodrigez RN 10/21/2023 10:47 AM Signed [...] Dr. Hannah. Christy Rodrigez RN BSN Nurse [employer] Allergies As of Date: 10/10/2023 Noted Allergy Reaction ADHESIVE TAPE-SILICONES 10/23/2016 4 - Hives KEFLEX (CEPHALEXIN) 11/12/2016 4 - Hives KEPPRA (LEVETIRACETAM) 10/23/2016 4 - Hives MORPHINE 10/23/2016 10 - Anaphylaxis NAPROXEN 07/08/2017 4 - Hives Date Reviewed: 10/07/2023 Reviewed by: Britney Juarez, IBETH - Fully Assessed Reason for Visit: Care [...] Status:Closed by CHRISTY RODRIGEZ on 11/04/23 Normal [facility] CONFIRM BLOOD TYPEon 024 ABO B Normal [facility] Comment on above: Order Comment: Speci men Type: BLOOD SPECIMEN Ordering Facility: [facility] Address: [address] [place] [address] Performed By: #### C ONABO #### [facility]LO[facility] [place] [id number] [address] [place] [address] OF HANS Rh Nom (Bld) Positive Normal [facility] Comment on above: Order Comment: Speci men Type: BLOOD SPECIMEN Ordering Facility: [facility] Address: [address] [place] [address] Performed By: #### C ONABO #### CC MAIN BLOOD B[facility] [place] [id number] [address] [place] [address] OF HANS NURSING PROGon 10-07-2023 NURSING PROG HNO ID: [id number] Author: LESLIE JARRETT RN Service: ? Author [...] was completed by: Leslie Jarrett RN Normal [facility] CBC W Auto Differential pane l (Bld)on 09-16-2023 Basophils (Bld) [#/Vol] 0.06 10*3/uL Normal <0.11 [facility] Comment on above: Order Comment: Speci men Type: BLOOD SPECIMEN Ordering Facility: [facility] Address: [address] [place] [address] Performed By: #### C ONABO #### [facility] CLIA [id number] [address] [place] [address] [place] Basophils/100 WBC (Bld) 0.6 % Normal [facility] Comment on above: Order Comment: Speci men Type: BLOOD SPECIMEN Ordering Facility: [facility] Address: [address] [place] [address] Performed By: #### C ONABO #### [facility] CLIA [id number] [address] [place] [address] [place] Differential cell count method Nom (Bld) Auto Normal [facility] Comment on above: Order Comment: Speci men Type: BLOOD SPECIMEN Ordering Facility: [facility] Address: [address] [place] [address] Performed By: #### C ONABO #### [facility] CLIA [id number] [address] [place] [address] [place] Eosinophils (Bld) [#/Vol] 0.09 10*3/uL Normal <0.46 [facility] Comment on above: Order Comment: Speci men Type: BLOOD SPECIMEN Ordering Facility: [facility] Address: [address] [place] [address] Performed By: #### C ONABO #### [facility] CLIA [id number] [address] [place] [address] [place] Eosinophils/100 WBC (Bld) 1.0 % Normal [facility] Comment on above: Order Comment: Speci men Type: BLOOD SPECIMEN Ordering Facility: [facility] Address: [address] [place] [address] Performed By: #### C ONABO #### [facility] CLIA [id number] [address] [place] [address] [place] Erythrocyte distribution width (RBC) [Ratio] 12.5 % Normal 11.5-15.0 [facility] Comment on above: Order Comment: Speci men Type: BLOOD SPECIMEN Ordering Facility: [facility] Address: [address] [place] [address] Performed By: #### C ONABO #### [facility] CLIA [id number] [address] [place] [address] [place] Hematocrit (Bld) [Volume fraction] 47.3 % Normal 39.0-51.0 [facility] Comment on above: Order Comment: Speci men Type: BLOOD SPECIMEN Ordering Facility: [facility] Address: [address] [place] [address] Performed By: #### C ONABO #### [facility] CLIA [id number] [address] [place] [address] [place] Hemoglobin (Bld) [Mass/Vol] 16.1 g/dL Normal 13.0-17.0 [facility] Comment on above: Order Comment: Speci men Type: BLOOD SPECIMEN Ordering Facility: [facility] Address: [address] [place] [address] Performed By: #### C ONABO #### [facility] CLIA [id number] [address] [place] [address] [place] Immature granulocytes (Bld) [#/Vol] 0.03 10*3/uL Normal <0.10 [facility] Comment on above: Order Comment: Speci men Type: BLOOD SPECIMEN Ordering Facility: [facility] Address: [address] [place] [address] Performed By: #### C ONABO #### [facility] CLIA [id number] [address] [place] [address] [place] Immature granulocytes/100 WBC (Bld) 0.3 % Normal [facility] Comment on above: Order Comment: Speci men Type: BLOOD SPECIMEN Ordering Facility: [facility] Address: [address] [place] [address] Performed By: #### C ONABO #### [facility] CLIA [id number] [address] [place] [address] [place] Lymphocytes (Bld) [#/Vol] 2.61 10*3/uL Normal 1.00-4.00 [facility] Comment on above: Order Comment: Speci men Type: BLOOD SPECIMEN Ordering Facility: [facility] Address: [address] [place] [address] Performed By: #### C ONABO #### [facility] CLIA [id number] [address] [place] [address] [place] Lymphocytes/100 WBC (Bld) 28.2 % Normal [facility] Comment on above: Order Comment: Speci men Type: BLOOD SPECIMEN Ordering Facility: [facility] Address: [address] [place] [address] Performed By: #### C ONABO #### [facility] CLIA [id number] [address] [place] [address] [place] MCH (RBC) [Entitic mass] 31.0 pg Normal 26.0-34.0 [facility] Comment on above: Order Comment: Speci men Type: BLOOD SPECIMEN Ordering Facility: [facility] Address: [address] [place] [address] Performed By: #### C ONABO #### [facility] CLIA [id number] [address] [place] [address] [place] MCHC (RBC) [Mass/Vol] 34.0 g/dL Normal 30.5-36.0 [facility] Comment on above: Order Comment: Speci men Type: BLOOD SPECIMEN Ordering Facility: [facility] Address: [address] [place] [address] Performed By: #### C ONABO #### [facility] CLIA [id number] [address] [place] [address] [place] MCV (RBC) [Entitic vol] 91.1 fL Normal 80.0-100.0 [facility] Comment on above: Order Comment: Speci men Type: BLOOD SPECIMEN Ordering Facility: [facility] Address: [address] [place] [address] Performed By: #### C ONABO #### [facility] CLIA [id number] [address] [place] [address] [place] Monocytes (Bld) [#/Vol] 0.51 10*3/uL Normal <0.87 [facility] Comment on above: Order Comment: Speci men Type: BLOOD SPECIMEN Ordering Facility: [facility] Address: [address] [place] [address] Performed By: #### C ONABO #### [facility] CLIA [id number] [address] [place] [address] [place] Monocytes/100 WBC (Bld) 5.5 % Normal C [facility] Comment on above: Order Comment: Speci men Type: BLOOD SPECIMEN Ordering Facility: [facility] Address: [address] [place] [address] Performed By: #### C ONABO #### [facility] CLIA [id number] [address] [place] [address] [place] Neutrophils (Bld) [#/Vol] 5.94 10*3/uL Normal 1.45-7.50 [facility] Comment on above: Order Comment: Speci men Type: BLOOD SPECIMEN Ordering Facility: [facility] Address: [address] [place] [address] Performed By: #### C ONABO #### [facility] CLIA [id number] [address] [place] [address] [place] Neutrophils/100 WBC (Bld) 64.4 % Normal [facility] Comment on above: Order Comment: Speci men Type: BLOOD SPECIMEN Ordering Facility: [facility] Address: [address] [place] [address] Performed By: #### C ONABO #### [facility] CLIA [id number] [address] [place] [address] [place] Nucleated RBC (Bld) [#/Vol] 10*3/uL Normal <0.01 [facility] Comment on above: Order Comment: Speci men Type: BLOOD SPECIMEN Ordering Facility: [facility] Address: [address] [place] [address] Performed By: #### C ONABO #### [facility] CLIA [id number] [address] [place] [address] [place] Nucleated RBC/100 WBC (Bld) [Ratio] 0.0 /100 WBC Normal [facility] Comment on above: Order Comment: Speci men Type: BLOOD SPECIMEN Ordering Facility: [facility] Address: [address] [place] [address] Performed By: #### C ONABO #### [facility] CLIA [id number] [address] [place] [address] [place] Platelet mean volume (Bld) [Entitic vol] 9.6 fL Normal 9.0-12.7 [facility] Comment on above: Order Comment: Speci men Type: BLOOD SPECIMEN Ordering Facility: [facility] Address: [address] [place] [address] Performed By: #### C ONABO #### [facility] CLIA [id number] [address] [place] [address] [place] Platelets (Bld) [#/Vol] 307 10*3/uL Normal 150-400 [facility] Comment on above: Order Comment: Speci men Type: BLOOD SPECIMEN Ordering Facility: [facility] Address: [address] [place] [address] Performed By: #### C ONABO #### [facility] CLIA [id number] [address] [place] [address] [place] RBC (Bld) [#/Vol] 5.19 10*6/uL Normal 4.20-6.00 [facility] Comment on above: Order Comment: Speci men Type: BLOOD SPECIMEN Ordering Facility: [facility] Address: [address] [place] [address] Performed By: #### C ONABO #### [facility] CLIA [id number] [address] [place] [address] [place] WBC (Bld) [#/Vol] 9.24 10*3/uL Normal 3.70-11.00 [facility] Comment on above: Order Comment: Speci men Type: BLOOD SPECIMEN Ordering Facility: [facility] Address: [address] [place] [address] Performed By: #### C ONABO #### [facility] CLIA [id number] [address] [place] [address] [place] [facility] Comprehensive metabolic 2000 panelon 09-16-2023 Albumin [Mass/Vol] 4.1 g/dL Normal 3.9-4.9 [facility] Comment on above: Order Comment: Speci men Type: BLOOD SPECIMEN Ordering Facility: [facility] Address: [address] [place] [address] Performed By: #### C ONABO #### [facility] CLIA [id number] [address] [place] [address] [place] ALP [Catalytic activity/Vol] 46 U/L Normal 38-113 [facility] Comment on above: Order Comment: Speci men Type: BLOOD SPECIMEN Ordering Facility: [facility] Address: [address] [place], [place] [id number] Performed By: #### C ONABO #### [facility] CLIA [id number] [address] [place] [address] [place] ALT [Catalytic activity/Vol] 21 U/L Normal 10-54 [facility] Comment on above: Order Comment: Speci men Type: BLOOD SPECIMEN Ordering Facility: [facility] Address: [address] [place] [address] Performed By: #### C ONABO #### [facility] CLIA [id number] [address] [place] [address] [place] Anion gap [Moles/Vol] 12 mmol/L Normal 9-18 [facility] Comment on above: Order Comment: Speci men Type: BLOOD SPECIMEN Ordering Facility: [facility] Address: [address] [place] [address] Performed By: #### C ONABO #### [facility] CLIA [id number] [address] [place] [address] [place] AST [Catalytic activity/Vol] 19 U/L Normal 14-40 [facility] Comment on above: Order Comment: Speci men Type: BLOOD SPECIMEN Ordering Facility: [facility] Address: [address] [place] [address] Performed By: #### C ONABO #### [facility] CLIA [id number] [address] [place] [address] [place] Bilirubin [Mass/Vol] 0.2 mg/dL Normal 0.2-1.3 [facility] Comment on above: Order Comment: Speci men Type: BLOOD SPECIMEN Ordering Facility: [facility] Address: [address] [place] [address] Performed By: #### C ONABO #### [facility] CLIA [id number] [address] [place] [address] [place] Calcium [Mass/Vol] 9.1 mg/dL Normal 8.5-10.2 [facility] Comment on above: Order Comment: Speci men Type: BLOOD SPECIMEN Ordering Facility: [facility] Address: [address] [place] [address] Performed By: #### C ONABO #### [facility] CLIA [id number] [address] [place] [address] [place] Chloride [Moles/Vol] 104 mmol/L Normal 97-105 [facility] Comment on above: Order Comment: Speci men Type: BLOOD SPECIMEN Ordering Facility: [facility] Address: [address] [place] [address] Performed By: #### C ONABO #### [facility] CLIA [id number] [address] [place] [address] [place] [facility] CO2 [Moles/Vol] 20 mmol/L Low 22-30 [facility] Comment on above: Order Comment: Speci men Type: BLOOD SPECIMEN Ordering Facility: [facility] Address: [address] [place] [address] Performed By: #### C ONABO #### [facility] CLIA [id number] [address] [place] [address] Creatinine [Mass/Vol] 0.73 mg/dL Normal 0.73-1.22 [facility] Comment on above: Order Comment: Speci men Type: BLOOD SPECIMEN Ordering Facility: [facility] Address: [address] [place] [address] Performed By: #### C ONABO #### [facility] CLIA [id number] [address] [place] [address] Creatinine and Glomerular filtration rate.predicted panel (S/P/Bld) 115 mL/min/1.73m??? Normal >=60 [facility] Comment on above: Order Comment: Speci men Type: BLOOD SPECIMEN Ordering Facility: [facility] Address: [address] [place] [address] Result Comment: Katie mated Glomerular Filtration Rate [...] ONABO #### [facility] CLIA [id number] [address] [place] [address] [place] Glucose [Mass/Vol] 124 mg/dL High 74-99 [facility] Comment on above: Order Comment: Speci men Type: BLOOD SPECIMEN Ordering Facility: [facility] Address: [address] [place] [address] Result Comment: The [place] [employer] (ADA) provides guidance for cutoff [...] Standards of Medical Care in Diabetes 2016, [place] [employer]. Diabetes Care. 2016.39(Suppl 1). Performed By: #### C ONABO #### [facility] CLIA [id number] [address] [place] [address] [place] Potassium [Moles/Vol] 4.2 mmol/L Normal 3.7-5.1 [facility] Comment on above: Order Comment: Wingi men Type: BLOOD SPECIMEN Ordering Facility: [facility] Address: [address] [place] [address] Performed By: #### C ONABO #### [facility] CLIA [id number] [address] [place] [address] [place] Protein [Mass/Vol] 6.8 g/dL Normal 6.3-8.0 [facility] Comment on above: Order Comment: Speci men Type: BLOOD SPECIMEN Ordering Facility: [facility] Address: [address] [place] [address] Performed By: #### C ONABO #### [facility] CLIA [id number] [address] [place] [address] [place] Sodium [Moles/Vol] 136 mmol/L Normal 136-144 [facility] Comment on above: Order Comment: Speci men Type: BLOOD SPECIMEN Ordering Facility: [facility] Address: [address] [place] [address] Performed By: #### C ONABO #### [facility] CLIA [id number] [address] [place] [address] [place] Urea nitrogen [Mass/Vol] 9 mg/dL Normal 9-24 [facility] Comment on above: Order Comment: Speci men Type: BLOOD SPECIMEN Ordering Facility: [facility] Address: [address] [place] [address] Performed By: #### C ONABO #### [facility] CLIA [id number] [address] [place] [address] [place] ECG COMPLETEon 09-16-2023 ECG COMPLETE Ventricular Rate : 9 6 BPM Atrial Rate : 96 BPM P-R Interval : 136 ms QRS Duration : 94 ms Q-T Interval : 362 ms QTC Calculation(Bazett) : 457 ms Calculated P Deale : 30 degrees Calculated R Deale : 19 degrees Calculated T Deale : 18 degrees NORMAL SINUS RHYTHM NORMAL ECG Confirmed by MD SHILOH, PhD, MATTHEW ([id number]) on 09/25/2023 1:38:47 PM NAME : PATRICK KOROMA PID : [id number] : 1980 Gender : Male Race : ORD : [id number] Procedure Date : Sep 16 2023 12:20:58 Edit Date : Sep 25 2023 13:38:51 Diagnosis: NORMAL SINUS RHYTHM NORMAL ECG Confirmed by MD SHILOH, PhD, MATTHEW ([id number]) on 09/25/2023 1:38:47 PM Test Reason : Location : 119 : A17 A17 Overread By : MD SHILOH, PhD,MATTHEW Edited By : MD SHILOH, PhD,MATTHEW Referred By : JESE RICHARDSON Acquired by : ESAU MCGARRY [facility] HISTORY PHYSICALon HISTORY PHYSICAL HNO ID: [id number] Author: DIANA GRAHAM PA-C Service: ? Author Type: Physician Flat Examiner Type: H&P Filed: 09/16/2023 12:27 Note Text: [...] COVID-19 Immunization Status Overdue - Covid-19 Vaccine (4 - 2023-24 season) Overdue since 02/14/2023 04/30/2021 Imm Admin: [...] requiring medication, no history of angina, CHF, RI, cardiac surgery or stents. Denies rest pain, [...] 1.00 Year (more content not included)... Normal [facility] PT panel Coag (PPP)on 2023 INR Coag (PPP) [Relative time] 0.9 {INR} Normal 0.9-1.3 [facility] Comment on above: Order Comment: Vikash vasquez Type: BLOOD SPECIMEN Ordering Facility: [facility] Address: [address] [place] [address] Result Comment: Bisi min K Antagonist (VKA) Therapeutic Range: INR 2 to 3 (Target INR of 2.5) Note: For patients treated with VKA drugs, such as warfarin, the [place] [employer] 2012 Guideline recommends [...] 2.5 to 3.5 (target INR of 3). Nyal GH, et al. Chest 2012, 141:7S-47S Sharla RA et al. [facility] 2017, 70: 252-289 Performed By: #### C ONABO #### [facility]LO[facility] CLIA [id number] [address] [place] [address] [place] PT Coag (PPP) [Time] 10.1 s Normal 9.7-13.0 [facility] Comment on above: Order Comment: Vikash vasquez Type: BLOOD SPECIMEN Ordering Facility: [facility] Address: [address] [place] [address] Performed By: #### C ONABO #### [facility] CLIA [id number] [address] [place] [address] [place] TYPE AND SCREEN,30 DAYon ABO B Normal [facility] Comment on above: Order Comment: Speci men Type: BLOOD SPECIMEN Ordering Facility: [facility] Address: [address] [place] [address] Performed By: #### T SCR30 #### [facility] CLIA [id number] [address] [place] [address] [place] HISTORICAL AB SCR STATUS Negative Normal [facility] Comment on above: Order Comment: Speci men Type: BLOOD SPECIMEN Ordering Facility: [facility] Address: [address] [place] [address] Performed By: #### T SCR30 #### [facility] CLIA [id number] [address] [place] [address] [place] Rh Nom (Bld) Positive Normal [facility] Comment on above: Order Comment: Speci men Type: BLOOD SPECIMEN Ordering Facility: [facility] Address: [address] [place] [address] Performed By: #### T SCR30 #### [facility] CLIA [id number] [address] [place] [address] [place] aPTT PPPon 09-16-2023 aPTT Coag (PPP) [Time] 29.1 s Normal 23.0-32.4 Cl [facility] Comment on above: Order Comment: Speci men Type: BLOOD SPECIMEN Ordering Facility: [facility] Address: [address] [place] [address] Performed By: #### C ONABO #### [facility] CLIA [id number] [address] [place] [address] [place] CNOVon 08-06-2023 CNOV Office Visit (NPRC21 ) PATRICK KOROMA ([id number]) 1980 M Date Time Provider Department 08/06/23 9:30 AM KELLEY MERAZ NPRC21 During your visit today, we recorded the following information about you: Pulse Blood pressure Weight Height 107/minute 153/101 158.8 kg 1.88 m Kelley Meraz APRN.ALMA NOEL 08/06/2023 10:16 AM Signed In-Person Visit Present: patient [facility] August 06, 2023 Patrick 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 He was referred by Linda Griffiths CNP (General Surgery) [address] [address]. This consultation was shared with the referral source via the [facility] electronic medical record. The patient understanding of [...] activity was identified. 08/06/2023 by Kelley Meraz APRN.LEAD TECHNICAL ARCHITECT, DNP Functional Limitations: The patient has been [...] hematoma (HCC) (more content not included)... Normal [facility] CNOVon 07-07-2023 CNOV Office Visit (JUNG ) PATRICK KOROMA ([id number]) 1980 M Date Time Provider Department 07/07/23 [...] Viviana Teresa MD 07/07/2023 9:35 AM Signed [facility] Abdominal [facility] - HISTORY AND PHYSICAL Chief Complaint: pain to the left of the hernia repair HPI: Patrick Koroma is a 43 year old male with PMH post traumatic seizure disorder, s/p appendectomy and multiple hernia repair who presents with pain lateral to the hernia repair site On 11/22/21 he had a robotic assisted repair of recurrent ventral hernia at [place] with Dr Aaron Duque with removal of [...] is warm (more content not included)... Normal [facility] .Auto Diffon 06-28-2023 Basophil, Absolute 0.0 10 3/mcL Normal 0.0-0.2 [facility] ([place]) Comment on above: Performed By: #### C CORNELIA GARIBAY ADIFF, MDW, LIP, ANEU, GFR #### [address] [address] Basophils/100 WBC (Bld) 0.2 % Normal 0.0-2.5 A [facility] ([place]) Comment on above: Performed By: #### C CORNELIA GARIBAY ADIFF, MDW, LIP, ANEU, GFR #### [address] [address] Eosinophil, Absolute 0.2 10 3/mcL Normal 0.0-0.4 [facility] ([place]) Comment on above: Performed By: #### C CORNELIA GARIBAY ADIFF, MDW, LIP, ANEU, GFR #### [address] [address] Eosinophils/100 WBC (Bld) 2.4 % Normal 0.0-7.0 [facility] ([place]) Comment on above: Performed By: #### C BC, CMP, ADIFF, MDW, LIP, ANEU, GFR #### [address] [address] Lymphocyte, Absolute 2.8 10 3/mcL Normal 0.8-3.9 [facility] ([place]) Comment on above: Performed By: #### C BC, CMP, ADIFF, MDW, LIP, ANEU, GFR #### [address] [address] Lymphocytes/100 WBC (Bld) 32.1 % Normal 10.0-50.0 [facility] ([place]) Comment on above: Performed By: #### C BC, CMP, ADIFF, MDW, LIP, ANEU, GFR #### [address] [address] Monocyte, Absolute 0.6 10 3/mcL Normal 0.2-1.0 [facility] ([place]) Comment on above: Performed By: #### C BC, CMP, ADIFF, MDW, LIP, ANEU, GFR #### [address] [address] Monocytes/100 WBC (Bld) 6.7 % Normal 1.7-13.0 A [facility] ([place]) Comment on above: Performed By: #### C BC, CMP, ADIFF, MDW, LIP, ANEU, GFR #### [address] [address] Neutrophils/100 WBC (Bld) 58.6 % Normal 37.0-80.0 [facility] ([place]) Comment on above: Performed By: #### C BC, CMP, ADIFF, MDW, LIP, ANEU, GFR #### [address] [address] .GFRon 06-28-2023 GFR 110 ml/min/1.73sqm Normal [facility] ([place]) Comment on above: Result Comment: GFR Population [...] CORNELIA, KLARISSA, W, LIP, ANEU, GFR #### [address] [address] GFR Non- 91 ml/min/1.73sqm Normal [facility] ([place]) Comment on above: Result Comment: GFR Population [...] CORNELIA, KLARISSA, MDW, LIP, ANEU, GFR #### [address] [address] .MDWon 06-28-2023 Monocyte Distribution Width 20.24 High 0.00-20.00 [facility] ([place]) Comment on above: Result Comment: For adults in ED, MDW>20.0 may be associated with a higher risk of sepsis during the first 12hrs of hospital admission Performed By: #### C BC, CORNELIA, KLARISSA, MDW, LIP, ANEU, GFR #### [address] [address] .NEUABSon 06-28-2023 Neutrophil, Absolute 5.2 10 3/mcL Normal 2.9-6.2 [facility] ([place]) Comment on above: Performed By: #### C BC, CMP, KLARISSA, W, LIP, ANEU, GFR #### [address] [address] .Urinalysis Microscopic (AO) on 06-28-2023 UA Amorphus 2+ /hpf Normal [facility] ([place]) Comment on above: Performed By: #### C BC, CMP, KLARISSA, W, LIP, ANEU, GFR #### [address] [address] UA Mucous Trace Normal [facility] ([place]) Comment on above: Performed By: #### C BC, CMP, KLARISSA, W, LIP, ANEU, GFR #### [address] [address] UA RBC None Seen Normal None Seen [facility] ([place]) Comment on above: Performed By: #### C BC, CMP, KLARISSA, W, LIP, ANEU, GFR #### [address] [address] UA Squam Epithelial None Seen Normal None Seen [facility] ([place]) Comment on above: Performed By: #### C BC, CORNELIA, KLARISSA, W, LIP, ANEU, GFR #### [address] [address] UA WBC None Seen Normal None Seen [facility] ([place]) Comment on above: Performed By: #### C BC, CMP, KLARISSA, W, LIP, ANEU, GFR #### [address] [address] CBCon 06-28-2023 Erythrocyte distribution width (RBC) [Ratio] 13.5 % Normal 11.5-14.5 [facility]) Comment on above: Performed By: #### C BC, CMP, KLARISSA, MDW, LIP, ANEU, GFR #### [address] [address] Hematocrit (Bld) [Volume fraction] 44.3 % Normal 42.0-52.0 [facility] ([place]) Comment on above: Performed By: #### C BC, CMP, ADIFF, MDW, LIP, ANEU, GFR #### [address] [address] Hgb 15.4 G/dL Normal 14.0-18.0 [facility] ([place]) Comment on above: Performed By: #### C BC, CMP, ADIFF, MDW, LIP, ANEU, GFR #### [address] [address] MCH (RBC) [Entitic mass] 31.5 pg High 27.0-31.2 [facility] ([place]) Comment on above: Performed By: #### C BC, CMP, ADIFF, MDW, LIP, ANEU, GFR #### [address] [address] MCHC 34.8 G/dL Normal 31.8-35.4 [facility] ([place]) Comment on above: Performed By: #### C BC, CMP, ADIFF, MDW, LIP, ANEU, GFR #### [address] [address] MCV (RBC) [Entitic vol] 90.6 fL Normal 80.0-94.0 A [facility] ([place]) Comment on above: Performed By: #### C BC, CMP, ADIFF, MDW, LIP, ANEU, GFR #### [address] [address] Platelet 294 10 3/mcL Normal 130-400 [facility] ([place]) Comment on above: Performed By: #### C BC, CMP, ADIFF, MDW, LIP, ANEU, GFR #### [address] [address] Platelet mean volume (Bld) [Entitic vol] 7.2 fL Low 7.4-10.4 [facility] ([place]) Comment on above: Performed By: #### C BC, CMP, ADIFF, MDW, LIP, ANEU, GFR #### [address] [address] RBC 4.89 10 6/mcL Normal 4.04-6.13 [facility] ([place]) Comment on above: Performed By: #### C BC, CMP, ADIFF, MDW, LIP, ANEU, GFR #### [address] [address] WBC 8.8 10 3/mcL Normal 4.6-10.8 [facility] ([place]) Comment on above: Performed By: #### C BC, CMP, ADIFF, MDW, LIP, ANEU, GFR #### [address] [address] CMPon 06-28-2023 Albumin Level 3.3 G/dL Low 3.5-5.0 [facility] ([place]) Comment on above: Performed By: #### C BC, CMP, ADIFF, MDW, LIP, ANEU, GFR #### [address] [address] Albumin/Globulin [Mass ratio] 0.9 {ratio} Low 1.1-2.5 [facility] ([place]) Comment on above: Performed By: #### C BC, CMP, ADIFF, MDW, LIP, ANEU, GFR #### [address] [address] ALP [Catalytic activity/Vol] 46 U/L Normal 40-135 [facility] ([place]) Comment on above: Performed By: #### C BC, CMP, ADIFF, MDW, LIP, ANEU, GFR #### [address] [address] ALT [Catalytic activity/Vol] 31 U/L Normal 16-63 [facility] ([place]) Comment on above: Performed By: #### C BC, CMP, ADIFF, MDW, LIP, ANEU, GFR #### [address] [address] AST [Catalytic activity/Vol] 16 U/L Normal 10-40 [facility] ([place]) Comment on above: Performed By: #### C BC, CMP, ADIFF, MDW, LIP, ANEU, GFR #### [address] [address] Bili Total 0.3 mg/dL Normal 0.2-1.0 [facility] ([place]) Comment on above: Result Comment: Use of this assay is not recommended for patients undergoing treatment with eltrombopag due to the potential for falsely elevated results. Performed By: #### C BC, CMP, ADIFF, MDW, LIP, ANEU, GFR #### [address] [address] BUN/Creatinine Ratio 13 ratio Normal 7-27 [facility] ([place]) Comment on above: Performed By: #### C BC, CMP, ADIFF, MDW, LIP, ANEU, GFR #### [address] [address] Calcium [Mass/Vol] 9.1 mg/dL Normal 8.4-10.2 [facility] ([place]) Comment on above: Performed By: #### C BC, CMP, ADIFF, MDW, LIP, ANEU, GFR #### [address] [address] Chloride [Moles/Vol] 103 mmol/L Normal 98-107 [facility] ([place]) Comment on above: Performed By: #### C BC, CMP, ADIFF, MDW, LIP, ANEU, GFR #### [address] [address] CO2 [Moles/Vol] 30 mmol/L High 22-29 [facility] ([place]) Comment on above: Performed By: #### C BC, CMP, ADIFF, MDW, LIP, ANEU, GFR #### [address] [address] Creatinine [Mass/Vol] 0.91 mg/dL Normal 0.70-1.30 Pending [facility] to [facility] ([place]) Comment on above: Performed By: #### C BC, CMP, ADIFF, MDW, LIP, ANEU, GFR #### [address] [address] Electrolyte Balance 6.0 mEq/L Normal 4.0-15.0 [facility] ([place]) Comment on above: Performed By: #### C BC, CMP, ADIFF, MDW, LIP, ANEU, GFR #### [address] [address] Globulin 3.5 G/dL Normal [facility] ([place]) Comment on above: Performed By: #### C BC, CMP, ADIFF, MDW, LIP, ANEU, GFR #### [address] [address] Glucose [Mass/Vol] 137 mg/dL High 70-105 [facility] ([place]) Comment on above: Performed By: #### C BC, CMP, ADIFF, MDW, LIP, ANEU, GFR #### [address] [address] Potassium [Moles/Vol] 3.8 mmol/L Normal 3.5-5.1 [facility] to [facility] ([place]) Comment on above: Performed By: #### C BC, CMP, ADIFF, MDW, LIP, ANEU, GFR #### [address] [address] Sodium [Moles/Vol] 139 mmol/L Normal 136-145 [facility] ([place]) Comment on above: Performed By: #### C BC, CMP, ADIFF, MDW, LIP, ANEU, GFR #### [address] [address] Total Protein 6.8 G/dL Normal 6.4-8.2 [facility] ([place]) Comment on above: Performed By: #### C BC, CMP, ADIFF, MDW, LIP, ANEU, GFR #### [address] [address] Urea nitrogen [Mass/Vol] 12 mg/dL Normal 7-18 [facility] ([place]) Comment on above: Performed By: #### C BC, CMP, ADIFF, MDW, LIP, ANEU, GFR #### [address] [address] [address] ABD/PELVIS W/ IV CONTRAST ONLYon 06-28-2023 [...] 06/28/2023 4:25:43 PM Ordering Provider: YOUNG Nelson [facility] ([place]) LABORATORYOrdered By: Becka Artis on 06-28-2023 Appearance [...] Lactic Acid Lvl 1.4 mmol/L Normal 0.4-2.0 [facility] ([place]) Comment on above: Performed By: #### L AC #### [address] [address] LIPon 06-28-2023 Lipase Level 28 U/L Normal 16-77 [facility] ([place]) Comment on above: Performed By: #### C BC, CMP, ADIFF, MDW, LIP, ANEU, GFR #### [address] [place], [place] [address] No Panel Informationon 06-28 Microscopic examination of blood, culture Culture has been received in lab and is no growth to date. Routine cultures are held for 5 days. [facility] UAon 06-28-2023 Color (U) Yellow Normal [facility] ([place]) Comment on above: Performed By: #### C LANI, KLARISSA LOCKE MDW, LIP, ANEU, GFR #### [address] [address] Glucose (U) [Mass/Vol] Negative Normal Negative [facility] ([place]) Comment on above: Performed By: #### C LANI, CORNELIA, ANURAG CYR, LIP, ANEU, GFR #### [address] [address] Ketones Ql (U) Negative Normal Negative [facility] ([place]) Comment on above: Performed By: #### C LANI, KLARISSA LOCKE MDW, LIP, ANEU, GFR #### [address] [address] UA Appear Slightly Cloudy Abnormal Clear [facility] ([place]) Comment on above: Performed By: #### C LANI, KLARISSA LOCKE MDW, LIP, ANEU, GFR #### [address] [address] UA Blood Negative Normal Negative [facility] ([place]) Comment on above: Performed By: #### C CORNELIA GARIBAY ADIFF, MDW, LIP, ANEU, GFR #### [address] [address] UA Leuk Est Negative Normal Negative [facility] ([place]) Comment on above: Performed By: #### C LANI, CORNELIA, ANURAG CYR, LIP, ANEU, GFR #### [address] [address] UA Nitrite Negative Normal Negative [facility] ([place]) Comment on above: Performed By: #### C LANI, KLARISSA LOCKE MDW, LIP, ANEU, GFR #### [address] [address] UA pH 7.0 Normal 5.0 - 8.0 [facility] ([place]) Comment on above: Performed By: #### C LANI, CORNELIA, ANURAG CYR, LIP, ANEU, GFR #### [address] [address] UA Protein Negative Normal Negative [facility] ([place]) Comment on above: Performed By: #### C LANI, CORNELIA, ANURAG CYR, LIP, ANEU, GFR #### [address] [address] UA Spec Grav 1.020 Normal 1.015-1.025 [facility] ([place]) Comment on above: Performed By: #### C LANI, CORNELIA, KLARISSA, ANURAG, LIP, ANEU, GFR #### [address] [address] UA Specimen Type Clean Catch Normal [facility] ([place]) Comment on above: Performed By: #### C LANI, CORNELIA, KLARISSA, ANURAG, LIP, ANEU, GFR #### [address] [address] UA Urobilinogen 0.2 E.U./dL Normal 0.2-1.0 [facility] ([place]) Comment on above: Performed By: #### C LANI, CORNELIA, KLARISSA, ANURAG, LIP, ANEU, GFR #### [address] [address] Urobilinogen (U) [Mass/Vol] Negative Normal Negative [facility] ([place]) Comment on above: Performed By: #### C LANI, CORNELIA, KLARISSA, ANURAG, LIP, ANEU, GFR #### [address] [address] CNPVesna 06-25-2023 BERTN Telephone (NWIXJOHN) PATRICK KOROMA ([id number]) 1980 Date Time Provider Department 06/25/23 MOHAN MILLER During your visit today, we recorded the following information about you: Mohan Miller [facility] 06/25/2023 12:52 PM Signed Reviewed chart for clinic prep. Patient has recent CT in Epic. Obtained operative reports from [facility], sent for scanning. CHUY Coyne-P, MAR Allergies As of Date: 06/25/2023 Noted Allergy [...] Status:Closed by MOHAN MILLER on 06/25/23 Normal [facility] .Auto Diffon 06-08-2023 Basophil, Absolute 0.1 10 3/mcL Normal 0.0-0.2 [facility] ([place]) Comment on above: Performed By: #### C CORNELIA GARIBAY ADIFF, MDW, LIP, ANEU, GFR #### [address] [place], [place] [address] Basophils/100 WBC (Bld) 1.2 % Normal 0.0-2.5 A [facility] ([place]) Comment on above: Performed By: #### C BC, CMP, ADIFF, MDW, LIP, ANEU, GFR #### [address] [address] Eosinophil, Absolute 0.2 10 3/mcL Normal 0.0-0.4 [facility] ([place]) Comment on above: Performed By: #### C BC, CMP, ADIFF, MDW, LIP, ANEU, GFR #### [address] [address] Eosinophils/100 WBC (Bld) 2.1 % Normal 0.0-7.0 [facility] ([place]) Comment on above: Performed By: #### C BC, CMP, ADIFF, MDW, LIP, ANEU, GFR #### [address] [address] Lymphocyte, Absolute 2.8 10 3/mcL Normal 0.8-3.9 [facility] ([place]) Comment on above: Performed By: #### C BC, CMP, ADIFF, MDW, LIP, ANEU, GFR #### [address] [address] Lymphocytes/100 WBC (Bld) 26.1 % Normal 10.0-50.0 [facility] ([place]) Comment on above: Performed By: #### C BC, CMP, ADIFF, MDW, LIP, ANEU, GFR #### [address] [address] Monocyte, Absolute 0.6 10 3/mcL Normal 0.2-1.0 [facility] ([place]) Comment on above: Performed By: #### C BC, CMP, ADIFF, MDW, LIP, ANEU, GFR #### [address] [address] Monocytes/100 WBC (Bld) 5.8 % Normal 1.7-13.0 [facility] ([place]) Comment on above: Performed By: #### C BC, CMP, ADIFF, MDW, LIP, ANEU, GFR #### [address] [address] Neutrophils/100 WBC (Bld) 64.8 % Normal 37.0-80.0 [facility] ([place]) Comment on above: Performed By: #### C BC, CMP, KLARISSA, ANURAG, LIP, ANEU, GFR #### [address] [address] .GFRon 06-08-2023 GFR 124 ml/min/1.73sqm Normal [facility] ([place]) Comment on above: Result Comment: GFR Population [...] CMP, KLARISSA, ANURAG, LIP, ANEU, GFR #### [address] [address] GFR Non- 102 ml/min/1.73sqm Normal [facility] ([place]) Comment on above: Result Comment: GFR Population [...] CMP, KLARISSA, ANURAG, LIP, ANEU, GFR #### [address] [address] .MDWon 06-08-2023 Monocyte Distribution Width 18.49 Normal 0.00-20.00 [facility] ([place]) Comment on above: Result Comment: For ED adult patients suspected of sepsis, MDW<=20.0 does not rule out sepsis or risk of sepsis Performed By: #### C BC, CMP, ADIFF, MDW, LIP, ANEU, GFR #### [address] [address] .NEUABSon 06-08-2023 Neutrophil, Absolute 6.9 10 3/mcL High 2.9-6.2 [facility] ([place]) Comment on above: Performed By: #### C BC, CMP, ADIFF, MDW, LIP, ANEU, GFR #### [address] [address] BMPon 06-08-2023 BUN/Creatinine Ratio 15 ratio Normal 7-27 [facility] ([place]) Comment on above: Performed By: #### C BC, CMP, ADIFF, MDW, LIP, ANEU, GFR #### [address] [address] Calcium [Mass/Vol] 8.9 mg/dL Normal 8.4-10.2 [facility] ([place]) Comment on above: Performed By: #### C BC, CMP, ADIFF, MDW, LIP, ANEU, GFR #### [address] [address] Chloride [Moles/Vol] 104 mmol/L Normal 98-107 [facility] ([place]) Comment on above: Performed By: #### C BC, CMP, ADIFF, MDW, LIP, ANEU, GFR #### [address] [address] CO2 [Moles/Vol] 26 mmol/L Normal 22-29 [facility] ([place]) Comment on above: Performed By: #### C BC, CMP, ADIFF, MDW, LIP, ANEU, GFR #### [address] [address] Creatinine [Mass/Vol] 0.82 mg/dL Normal 0.70-1.30 [facility]ending [facility] to [facility] ([place]) Comment on above: Performed By: #### C BC, CMP, KLARISSA, MDW, LIP, ANEU, GFR #### [address] [address] Electrolyte Balance 10.0 mEq/L Normal 4.0-15.0 [facility] ([place]) Comment on above: Performed By: #### C BC, CMP, ADIFF, MDW, LIP, ANEU, GFR #### [address] [address] Glucose [Mass/Vol] 110 mg/dL High 70-105 [facility] ([place]) Comment on above: Performed By: #### C BC, CMP, KLARISSA, MDW, LIP, ANEU, GFR #### [address] [address] Potassium [Moles/Vol] 4.2 mmol/L Normal 3.5-5.1 [facility] to [facility] ([place]) Comment on above: Performed By: #### C BC, CMP, KLARISSA, MDW, LIP, ANEU, GFR #### [address] [address] Sodium [Moles/Vol] 140 mmol/L Normal 136-145 [facility] ([place]) Comment on above: Performed By: #### C BC, CMP, ADIFF, MDW, LIP, ANEU, GFR #### [address] [address] Urea nitrogen [Mass/Vol] 12 mg/dL Normal 7-18 [facility] ([place]) Comment on above: Performed By: #### C BC, CMP, KLARISSA, MDW, LIP, ANEU, GFR #### [address] [address] CBCon 06-08-2023 Erythrocyte distribution width (RBC) [Ratio] 13.6 % Normal 11.5-14.5 [facility] ([place]) Comment on above: Performed By: #### C BC, CMP, ADJAN, MDW, LIP, ANEU, GFR #### [address] [address] Hematocrit (Bld) [Volume fraction] 43.4 % Normal 42.0-52.0 [facility] ([place]) Comment on above: Performed By: #### C BC, CMP, ADIFF, MDW, LIP, ANEU, GFR #### [address] [address] Hgb 14.9 G/dL Normal 14.0-18.0 [facility] ([place]) Comment on above: Performed By: #### C BC, CMP, ADIFF, MDW, LIP, ANEU, GFR #### [address] [address] MCH (RBC) [Entitic mass] 31.1 pg Normal 27.0-31.2 [facility] ([place]) Comment on above: Performed By: #### C BC, CMP, ADIFF, MDW, LIP, ANEU, GFR #### [place] [address] MCHC 34.4 G/dL Normal 31.8-35.4 [facility] ([place]) Comment on above: Performed By: #### C BC, CMP, ADJAN, MDW, LIP, ANEU, GFR #### [address] [address] MCV (RBC) [Entitic vol] 90.5 fL Normal 80.0-94.0 A [facility] ([place]) Comment on above: Performed By: #### C BC, CMP, ADJAN, MDW, LIP, ANEU, GFR #### [address] [address] Platelet 283 10 3/mcL Normal 130-400 [facility] ([place]) Comment on above: Performed By: #### C BC, CMP, ADJAN, MDW, LIP, ANEU, GFR #### [address] [address] Platelet mean volume (Bld) [Entitic vol] 8.0 fL Normal 7.4-10.4 [facility] ([place]) Comment on above: Performed By: #### C BC, CMP, KLARISSA, W, LIP, ANEU, GFR #### [address] [place], [place] [address] RBC 4.80 10 6/mcL Normal 4.04-6.13 [facility] ([place]) Comment on above: Performed By: #### C BC, CMP, KLARISSA, MDW, LIP, ANEU, GFR #### [address] [place], [place] [address] WBC 10.6 10 3/mcL Normal 4.6-10.8 [facility] ([place]) Comment on above: Performed By: #### C BC, CMP, KLARISSA, MDW, LIP, ANEU, GFR #### [address] [place], [place] [address] LABORATORYOrdered By: SYSTEM SYSTEM on 06-08-2023 Basophil, [...] SS .GFRon 05-17-2023 GFR 111 ml/min/1.73sqm Normal [facility] ([place]) Comment on above: Result Comment: GFR Population [...] CMP, ADJAN, MDW, LIP, ANEU, GFR #### [address] [address] GFR Non- 92 ml/min/1.73sqm Normal [facility] ([place]) Comment on above: Result Comment: GFR Population [...] CMP, ADJAN, MDW, LIP, ANEU, GFR #### [address] [address] BMPon 05-17-2023 BUN/Creatinine Ratio 14 ratio Normal 7-27 [facility] ([place]) Comment on above: Performed By: #### C BC, CMP, ADIFF, MDW, LIP, ANEU, GFR #### [address] [address] Calcium [Mass/Vol] 9.5 mg/dL Normal 8.4-10.2 [facility] ([place]) Comment on above: Performed By: #### C BC, CMP, ADIFF, MDW, LIP, ANEU, GFR #### [address] [address] Chloride [Moles/Vol] 103 mmol/L Normal 98-107 [facility] ([place]) Comment on above: Performed By: #### C BC, CMP, KLARISSA, W, LIP, ANEU, GFR #### [address] [address] CO2 [Moles/Vol] 24 mmol/L Normal 22-29 [facility] ([place]) Comment on above: Performed By: #### C BC, CMP, KLARISSA, MDW, LIP, ANEU, GFR #### [address] [address] Creatinine [Mass/Vol] 0.90 mg/dL Normal 0.70-1.30 Pending [facility] to [facility] ([place]) Comment on above: Performed By: #### C BC, CMP, KLARISSA, MDW, LIP, ANEU, GFR #### [address] [address] Electrolyte Balance 15.0 mEq/L Normal 4.0-15.0 [facility] ([place]) Comment on above: Performed By: #### C BC, CMP, KLARISSA, MDW, LIP, ANEU, GFR #### [address] [address] Glucose [Mass/Vol] 98 mg/dL Normal 70-105 [facility] ([place]) Comment on above: Performed By: #### C BC, CMP, KLARISSA, MDW, LIP, ANEU, GFR #### [address] [address] Potassium [Moles/Vol] 4.6 mmol/L Normal 3.5-5.1 Pending sale to [facility] ([place]) Comment on above: Performed By: #### C BC, CMP, KLARISSA, MDW, LIP, ANEU, GFR #### [address] [address] Sodium [Moles/Vol] 142 mmol/L Normal 136-145 [facility] ([place]) Comment on above: Performed By: #### C BC, CMP, KLARISSA, MDW, LIP, ANEU, GFR #### [facility] [address] [place], [place] [address] Urea nitrogen [Mass/Vol] 13 mg/dL Normal 7-18 [facility] ([place]) Comment on above: Performed By: #### C BC, CMP, KLARISSA, MDW, LIP, ANEU, GFR #### [address] [place], [place] [address] CT ABD/PELVIS W/ IV CONTRAST ONLYon 05-17-2023 [...] 05/16/2023 10:45:51 PM Ordering Provider: TOI Nelson [facility] ([place]) .Auto Diffon 05-16-2023 Basophil, Absolute 0.1 10 3/mcL Normal 0.0-0.2 [facility] ([place]) Comment on above: Performed By: #### C BC, CMP, ADIFF, MDW, LIP, ANEU, GFR #### [address] [address] Basophils/100 WBC (Bld) 1.1 % Normal 0.0-2.5 A [facility] ([place]) Comment on above: Performed By: #### C BC, CMP, ADIFF, MDW, LIP, ANEU, GFR #### [address] [address] Eosinophil, Absolute 0.3 10 3/mcL Normal 0.0-0.4 [facility] ([place]) Comment on above: Performed By: #### C BC, CMP, ADIFF, MDW, LIP, ANEU, GFR #### [address] [address] Eosinophils/100 WBC (Bld) 1.9 % Normal 0.0-7.0 [facility] ([place]) Comment on above: Performed By: #### C BC, CMP, ADIFF, MDW, LIP, ANEU, GFR #### [address] [address] Lymphocyte, Absolute 3.4 10 3/mcL Normal 0.8-3.9 [facility] ([place]) Comment on above: Performed By: #### C BC, CMP, ADIFF, MDW, LIP, ANEU, GFR #### [address] [address] Lymphocytes/100 WBC (Bld) 25.6 % Normal 10.0-50.0 [facility] ([place]) Comment on above: Performed By: #### C BC, CMP, ADIFF, MDW, LIP, ANEU, GFR #### [address] [address] Monocyte, Absolute 0.8 10 3/mcL Normal 0.2-1.0 [facility] ([place]) Comment on above: Performed By: #### C BC, CMP, KLARISSA, MDW, LIP, ANEU, GFR #### [address] [address] Monocytes/100 WBC (Bld) 6.0 % Normal 1.7-13.0 A [facility] ([place]) Comment on above: Performed By: #### C BC, CMP, KLARISSA, MDW, LIP, ANEU, GFR #### [address] [address] Neutrophils/100 WBC (Bld) 65.4 % Normal 37.0-80.0 [facility] ([place]) Comment on above: Performed By: #### C BC, CMP, KLARISSA, W, LIP, ANEU, GFR #### [address] [address] .GFRon 05-16-2023 GFR 98 ml/min/1.73sqm Normal [facility] ([place]) Comment on above: Result Comment: GFR Population [...] CMP, KLARISSA, MDW, LIP, ANEU, GFR #### [address] [address] GFR Non- 81 ml/min/1.73sqm Normal [facility] ([place]) Comment on above: Result Comment: GFR Population [...] CORNELIA, KLARISSA, MDW, LIP, ANEU, GFR #### [address] [address] .MDWon 05-16-2023 Monocyte Distribution Width 17.52 Normal 0.00-20.00 [facility] ([place]) Comment on above: Result Comment: For ED adult patients suspected of sepsis, MDW<=20.0 does not rule out sepsis or risk of sepsis Performed By: #### C LANI, CORNELIA, KLARISSA, MDW, LIP, ANEU, GFR #### [address] [address] .NEUABSon 05-16-2023 Neutrophil, Absolute 8.7 10 3/mcL High 2.9-6.2 [facility] ([place]) Comment on above: Performed By: #### C BC, CORNELIA, KLARISSA, MDW, LIP, ANEU, GFR #### [address] [address] CBCon 05-16-2023 Erythrocyte distribution width (RBC) [Ratio] 13.4 % Normal 11.5-14.5 [facility] ([place]) Comment on above: Performed By: #### C BC, CMP, ADJAN, MDW, LIP, ANEU, GFR #### [address] [address] Hematocrit (Bld) [Volume fraction] 45.6 % Normal 42.0-52.0 [facility] ([place]) Comment on above: Performed By: #### C BC, CMP, ADIFF, MDW, LIP, ANEU, GFR #### [address] [address] Hgb 15.6 G/dL Normal 14.0-18.0 [facility] ([place]) Comment on above: Performed By: #### C BC, CMP, ADIFF, MDW, LIP, ANEU, GFR #### [address] [address] MCH (RBC) [Entitic mass] 30.9 pg Normal 27.0-31.2 [facility] ([place]) Comment on above: Performed By: #### C BC, CMP, ADIFF, MDW, LIP, ANEU, GFR #### [place] [address] MCHC 34.1 G/dL Normal 31.8-35.4 [facility] ([place]) Comment on above: Performed By: #### C BC, CMP, ADIFF, MDW, LIP, ANEU, GFR #### [address] [address] MCV (RBC) [Entitic vol] 90.6 fL Normal 80.0-94.0 A [facility] ([place]) Comment on above: Performed By: #### C BC, CMP, ADIFF, MDW, LIP, ANEU, GFR #### [address] [address] Platelet 303 10 3/mcL Normal 130-400 [facility] ([place]) Comment on above: Performed By: #### C BC, CMP, ADIFF, MDW, LIP, ANEU, GFR #### [address] [address] Platelet mean volume (Bld) [Entitic vol] 7.3 fL Low 7.4-10.4 [facility] ([place]) Comment on above: Performed By: #### C BC, CMP, ADIFF, MDW, LIP, ANEU, GFR #### [place] [id number] RBC 5.04 10 6/mcL Normal 4.04-6.13 [facility] ([place]) Comment on above: Performed By: #### C BC, CMP, ADIFF, MDW, LIP, ANEU, GFR #### [address] [address] WBC 13.3 10 3/mcL High 4.6-10.8 [facility] ([place]) Comment on above: Performed By: #### C BC, CMP, ADIFF, MDW, LIP, ANEU, GFR #### [address] [address] CMPon 05-16-2023 Albumin Level 3.4 G/dL Low 3.5-5.0 [facility] ([place]) Comment on above: Performed By: #### C BC, CMP, ADIFF, MDW, LIP, ANEU, GFR #### [address] [address] Albumin/Globulin [Mass ratio] 0.9 {ratio} Low 1.1-2.5 [facility] ([place]) Comment on above: Performed By: #### C BC, CMP, ADIFF, MDW, LIP, ANEU, GFR #### [address] [address] ALP [Catalytic activity/Vol] 47 U/L Normal 40-135 [facility] ([place]) Comment on above: Performed By: #### C BC, CMP, ADIFF, MDW, LIP, ANEU, GFR #### [address] [address] ALT [Catalytic activity/Vol] 23 U/L Normal 16-63 [facility] ([place]) Comment on above: Performed By: #### C BC, CMP, ADIFF, MDW, LIP, ANEU, GFR #### [address] [address] AST [Catalytic activity/Vol] 21 U/L Normal 10-40 [facility] ([place]) Comment on above: Performed By: #### C BC, CMP, ADIFF, MDW, LIP, ANEU, GFR #### [address] [address] Bili Total 0.2 mg/dL Normal 0.2-1.0 [facility] ([place]) Comment on above: Result Comment: Use of this assay is not recommended for patients undergoing treatment with eltrombopag due to the potential for falsely elevated results. Performed By: #### C BC, CMP, ADIFF, MDW, LIP, ANEU, GFR #### [address] [address] BUN/Creatinine Ratio 14 ratio Normal 7-27 [facility] ([place]) Comment on above: Performed By: #### C BC, CMP, ADIFF, MDW, LIP, ANEU, GFR #### [address] [address] Calcium [Mass/Vol] 9.3 mg/dL Normal 8.4-10.2 [facility] ([place]) Comment on above: Performed By: #### C BC, CMP, ADIFF, MDW, LIP, ANEU, GFR #### [address] [address] Chloride [Moles/Vol] 96 mmol/L Low 98-107 [facility] ([place]) Comment on above: Performed By: #### C BC, CMP, ADIFF, MDW, LIP, ANEU, GFR #### [address] [address] CO2 [Moles/Vol] 24 mmol/L Normal 22-29 [facility] ([place]) Comment on above: Performed By: #### C BC, CMP, ADIFF, MDW, LIP, ANEU, GFR #### [address] [address] Creatinine [Mass/Vol] 1.00 mg/dL Normal 0.70-1.30 Pending sale to [facility] ([place]) Comment on above: Performed By: #### C BC, CMP, ADIFF, MDW, LIP, ANEU, GFR #### [address] [address] Electrolyte Balance 6.0 mEq/L Normal 4.0-15.0 [facility] ([place]) Comment on above: Performed By: #### C BC, CMP, ADIFF, MDW, LIP, ANEU, GFR #### [address] [address] Globulin 3.8 G/dL Normal [facility] ([place]) Comment on above: Performed By: #### C BC, CMP, ADIFF, MDW, LIP, ANEU, GFR #### [address] [address] Glucose [Mass/Vol] 121 mg/dL High 70-105 [facility] ([place]) Comment on above: Performed By: #### C BC, CMP, ADIFF, MDW, LIP, ANEU, GFR #### [address] [address] Potassium [Moles/Vol] 3.8 mmol/L Normal 3.5-5.1 Pending sale to [facility] ([place]) Comment on above: Performed By: #### C BC, CMP, ADIFF, MDW, LIP, ANEU, GFR #### [address] [address] Sodium [Moles/Vol] 126 mmol/L Low 136-145 [facility] ([place]) Comment on above: Performed By: #### C BC, CMP, ADIFF, MDW, LIP, ANEU, GFR #### [address] [address] Total Protein 7.2 G/dL Normal 6.4-8.2 [facility] ([place]) Comment on above: Performed By: #### C BC, CMP, ADIFF, MDW, LIP, ANEU, GFR #### [address] [address] Urea nitrogen [Mass/Vol] 14 mg/dL Normal 7-18 [facility] ([place]) Comment on above: Performed By: #### C BC, CMP, ADIFF, MDW, LIP, ANEU, GFR #### [address] [address] LABORATORYOrdered By: SYSTEM SYSTEM on 05-16-2023 Albumin [...] Level 20 U/L Normal 16-77 [facility] ([place]) Comment on above: Performed By: #### C BC, CMP, KLARISSA, MDW, LIP, ANEU, GFR #### [address] [address] UAon 05-16-2023 Color (U) Yellow Normal [facility] ([place]) Comment on above: Performed By: #### U A #### [address] [address] Glucose (U) [Mass/Vol] Negative Normal Negative [facility] ([place]) Comment on above: Performed By: #### U A #### [address] [address] Ketones Ql (U) Negative Normal Negative [facility] ([place]) Comment on above: Performed By: #### U A #### [address] [address] UA Appear Clear Normal Clear [facility] ([place]) Comment on above: Performed By: #### U A #### [address] [address] UA Blood Negative Normal Negative [facility] ([place]) Comment on above: Performed By: #### U A #### [place] [address] [address] UA Leuk Est Negative Normal Negative [facility] ([place]) Comment on above: Performed By: #### U A #### [place] [address] [address] UA Nitrite Negative Normal Negative [facility] ([place]) Comment on above: Performed By: #### U A #### [address] [address] UA pH 6.0 Normal 5.0 - 8.0 [facility] ([place]) Comment on above: Performed By: #### U A #### [place] [address] UA Protein Negative Normal Negative [facility] ([place]) Comment on above: Performed By: #### U A #### [address] [address] UA Spec Grav >=1.030 Abnormal 1.015-1.025 [facility] ([place]) Comment on above: Performed By: #### U A #### [address] [address] UA Specimen Type Clean Catch Normal [facility] ([place]) Comment on above: Performed By: #### U A #### [address] [address] UA Urobilinogen 0.2 E.U./dL Normal 0.2-1.0 [facility] ([place]) Comment on above: Performed By: #### U A #### [place] [id number] Urobilinogen (U) [Mass/Vol] Negative Normal Negative [facility] ([place]) Comment on above: Performed By: #### U A #### [address] [address] .Auto Diffon 02-12-2023 Basophil, Absolute 0.1 10 3/mcL Normal 0.0-0.2 [facility] ([place]) Comment on above: Performed By: #### C BC, CMP, ADIFF, MDW, LIP, ANEU, GFR #### [address] [address] Basophils/100 WBC (Bld) 1.2 % Normal 0.0-2.5 A [facility] ([place]) Comment on above: Performed By: #### C BC, CMP, ADIFF, MDW, LIP, ANEU, GFR #### [address] [address] Eosinophil, Absolute 0.1 10 3/mcL Normal 0.0-0.4 [facility] ([place]) Comment on above: Performed By: #### C BC, CMP, ADIFF, MDW, LIP, ANEU, GFR #### [address] [address] Eosinophils/100 WBC (Bld) 1.4 % Normal 0.0-7.0 [facility] ([place]) Comment on above: Performed By: #### C BC, CMP, ADIFF, MDW, LIP, ANEU, GFR #### [address] [address] Lymphocyte, Absolute 3.3 10 3/mcL Normal 0.8-3.9 [facility] ([place]) Comment on above: Performed By: #### C BC, CMP, ADIFF, MDW, LIP, ANEU, GFR #### [address] [address] Lymphocytes/100 WBC (Bld) 35.7 % Normal 10.0-50.0 [facility] ([place]) Comment on above: Performed By: #### C BC, CMP, ADIFF, MDW, LIP, ANEU, GFR #### [address] [address] Monocyte, Absolute 0.5 10 3/mcL Normal 0.2-1.0 [facility] ([place]) Comment on above: Performed By: #### C BC, CMP, KLARISSA, W, LIP, ANEU, GFR #### [address] [address] Monocytes/100 WBC (Bld) 5.1 % Normal 1.7-13.0 A [facility] ([place]) Comment on above: Performed By: #### C BC, CMP, KLARISSA, W, LIP, ANEU, GFR #### [address] [address] Neutrophils/100 WBC (Bld) 56.6 % Normal 37.0-80.0 [facility] ([place]) Comment on above: Performed By: #### C BC, CMP, KLARISSA, ANURAG, LIP, ANEU, GFR #### [address] [address] .GFRon 02-12-2023 GFR Non- 121 ml/min/1.73sqm Normal [facility] ([place]) Comment on above: Result Comment: GFR Population [...] CMP, KLARISSA, W, LIP, ANEU, GFR #### [address] [address] GFR 146 ml/min/1.73sqm Normal [facility] ([place]) Comment on above: Result Comment: GFR Population [...] CMP, ADIFF, MDW, LIP, ANEU, GFR #### [address] [address] .MDWon 02-12-2023 Monocyte Distribution Width 19.74 Normal 0.00-20.00 [facility] ([place]) Comment on above: Result Comment: For ED adult patients suspected of sepsis, MDW<=20.0 does not rule out sepsis or risk of sepsis Performed By: #### C BC, CMP, ADIFF, MDW, LIP, ANEU, GFR #### [address] [address] .NEUABSon 02-12-2023 Neutrophil, Absolute 5.2 10 3/mcL Normal 2.9-6.2 [facility] ([place]) Comment on above: Performed By: #### C BC, CMP, ADJAN, MDW, LIP, ANEU, GFR #### [address] [address] CBCon 02-12-2023 Erythrocyte distribution width (RBC) [Ratio] 14.0 % Normal 11.5-14.5 [facility] ([place]) Comment on above: Order Comment: clott ed Performed By: #### C BC, CMP, ADJAN, MDW, LIP, ANEU, GFR #### [address] [address] Hematocrit (Bld) [Volume fraction] 44.7 % Normal 42.0-52.0 [facility] ([place]) Comment on above: Order Comment: clott ed Performed By: #### C BC, CMP, ADIFF, MDW, LIP, ANEU, GFR #### [address] [address] Hgb 15.5 G/dL Normal 14.0-18.0 [facility] ([place]) Comment on above: Order Comment: clott ed Performed By: #### C BC, CMP, ADIFF, MDW, LIP, ANEU, GFR #### [place] [id number] MCH (RBC) [Entitic mass] 30.6 pg Normal 27.0-31.2 [facility] ([place]) Comment on above: Order Comment: clott ed Performed By: #### C BC, CMP, ADIFF, MDW, LIP, ANEU, GFR #### [place] [address] MCHC 34.6 G/dL Normal 31.8-35.4 [facility] ([place]) Comment on above: Order Comment: clott ed Performed By: #### C BC, CMP, ADIFF, MDW, LIP, ANEU, GFR #### [place] [address] MCV (RBC) [Entitic vol] 88.4 fL Normal 80.0-94.0 A [facility] ([place]) Comment on above: Order Comment: clott ed Performed By: #### C BC, CMP, ADIFF, MDW, LIP, ANEU, GFR #### [place] [address] Platelet 271 10 3/mcL Normal 130-400 [facility] ([place]) Comment on above: Order Comment: clott ed Performed By: #### C BC, CMP, ADIFF, MDW, LIP, ANEU, GFR #### [place] [address] Platelet mean volume (Bld) [Entitic vol] 7.2 fL Low 7.4-10.4 [facility] ([place]) Comment on above: Order Comment: clott ed Performed By: #### C BC, CMP, ADIFF, MDW, LIP, ANEU, GFR #### [place] [id number] RBC 5.06 10 6/mcL Normal 4.04-6.13 [facility] ([place]) Comment on above: Order Comment: clott ed Performed By: #### C BC, CMP, ADIFF, MDW, LIP, ANEU, GFR #### [address] [address] WBC 9.3 10 3/mcL Normal 4.6-10.8 [facility] ([place]) Comment on above: Order Comment: clott ed Performed By: #### C BC, CMP, ADIFF, MDW, LIP, ANEU, GFR #### [address] [address] CMPon 02-12-2023 Albumin Level 3.2 G/dL Low 3.5-5.0 [facility] ([place]) Comment on above: Performed By: #### C BC, CMP, ADIFF, MDW, LIP, ANEU, GFR #### [address] [address] Albumin/Globulin [Mass ratio] 0.8 {ratio} Low 1.1-2.5 [facility] ([place]) Comment on above: Performed By: #### C BC, CMP, ADIFF, MDW, LIP, ANEU, GFR #### [address] [address] ALP [Catalytic activity/Vol] 40 U/L Normal 40-135 [facility] ([place]) Comment on above: Performed By: #### C BC, CMP, ADIFF, MDW, LIP, ANEU, GFR #### [address] [address] ALT [Catalytic activity/Vol] 25 U/L Normal 16-63 [facility] ([place]) Comment on above: Performed By: #### C BC, CMP, ADIFF, MDW, LIP, ANEU, GFR #### [address] [address] AST [Catalytic activity/Vol] 32 U/L Normal 10-40 [facility] ([place]) Comment on above: Performed By: #### C BC, CMP, ADIFF, MDW, LIP, ANEU, GFR #### [address] [address] Bili Total 0.3 mg/dL Normal 0.2-1.0 [facility] ([place]) Comment on above: Result Comment: Use of this assay is not recommended for patients undergoing treatment with eltrombopag due to the potential for falsely elevated results. Performed By: #### C BC, CMP, ADIFF, MDW, LIP, ANEU, GFR #### [place] [address] BUN/Creatinine Ratio 13 ratio Normal 7-27 [facility] ([place]) Comment on above: Performed By: #### C BC, CMP, ADIFF, MDW, LIP, ANEU, GFR #### [place] [address] Calcium [Mass/Vol] 8.2 mg/dL Low 8.4-10.2 [facility] ([place]) Comment on above: Performed By: #### C BC, CMP, ADIFF, MDW, LIP, ANEU, GFR #### [address] [address] Chloride [Moles/Vol] 102 mmol/L Normal 98-107 [facility] ([place]) Comment on above: Performed By: #### C BC, CMP, ADIFF, MDW, LIP, ANEU, GFR #### [address] [address] CO2 [Moles/Vol] 26 mmol/L Normal 22-29 [facility] ([place]) Comment on above: Performed By: #### C BC, CMP, ADIFF, MDW, LIP, ANEU, GFR #### [place] [address] Creatinine [Mass/Vol] 0.71 mg/dL Normal 0.70-1.30 Pending sale to [facility] ([place]) Comment on above: Performed By: #### C BC, CMP, ADIFF, MDW, LIP, ANEU, GFR #### [address] [address] Electrolyte Balance 9.0 mEq/L Normal 4.0-15.0 [facility] ([place]) Comment on above: Performed By: #### C BC, CMP, KLARISSA, MDW, LIP, ANEU, GFR #### [address] [address] Globulin 3.9 G/dL Normal [facility] ([place]) Comment on above: Performed By: #### C BC, CMP, ADJAN, MDW, LIP, ANEU, GFR #### [address] [address] Glucose [Mass/Vol] 118 mg/dL High 70-105 [facility] ([place]) Comment on above: Performed By: #### C BC, CMP, KLARISSA, MDW, LIP, ANEU, GFR #### [address] [address] Potassium [Moles/Vol] 4.9 mmol/L Normal 3.5-5.1 Pending sale to [facility] ([place]) Comment on above: Performed By: #### C BC, CMP, ADJAN, MDW, LIP, ANEU, GFR #### [address] [address] Sodium [Moles/Vol] 137 mmol/L Normal 136-145 [facility] ([place]) Comment on above: Performed By: #### C BC, CMP, ADJAN, MDW, LIP, ANEU, GFR #### [address] [address] Total Protein 7.1 G/dL Normal 6.4-8.2 [facility] ([place]) Comment on above: Performed By: #### C BC, CMP, KLARISSA, MDW, LIP, ANEU, GFR #### [address] [address] Urea nitrogen [Mass/Vol] 9 mg/dL Normal 7-18 [facility] ([place]) Comment on above: Performed By: #### C BC, CMP, ADJAN, MDW, LIP, ANEU, GFR #### [address] [address] [address] ABD/PELVIS W/ IV CONTRAST ONLYon 02-12-2023 [...] Date: 02/12/2023 8:10:54 PM Ordering Provider: WOODROW Nelson [facility] ([place]) LABORATORYOrdered By: SYSTEM SYSTEM on 02-12-2023 Albumin [...] Level 39 U/L Normal 16-77 [facility] ([place]) Comment on above: Performed By: #### C LANI, CORNELIA, ANURAG CYR, LIP, ANEU, GFR #### [place] [address] [place], [place] [address] TROPHSon 02-12-2023 Troponin I High Sensitivity 4.0 ng/L Normal 0.0-76.2 [facility] ([place]) Comment on above: Performed By: #### C LANI, CORNELIA, ANURAG CYR, LIP, ANEU, GFR #### [place] [address] [place], [place] [address] UAon 02-12-2023 Color (U) Yellow Normal [facility] ([place]) Comment on above: Performed By: #### U A #### [place] [place] [address] [place], [place] [address] Glucose (U) [Mass/Vol] Negative Normal Negative [facility] ([place]) Comment on above: Performed By: #### U A #### [place] [place] [address] [place], [place] [address] Ketones Ql (U) Negative Normal Negative [facility] ([place]) Comment on above: Performed By: #### U A #### [address] [place], [place] [address] UA Appear Clear Normal Clear [facility] ([place]) Comment on above: Performed By: #### U A #### [address] [place], [place] [address] UA Blood Negative Normal Negative [facility] ([place]) Comment on above: Performed By: #### U A #### [place] [place], [place] [address] UA Leuk Est Negative Normal Negative [facility] ([place]) Comment on above: Performed By: #### U A #### [address] [place], [place] [address] UA Nitrite Negative Normal Negative [facility] ([place]) Comment on above: Performed By: #### U A #### [address] [place], [place] [address] UA pH 7.0 Normal 5.0 - 8.0 [facility] ([place]) Comment on above: Performed By: #### U A #### [address] [place], [place] [address] UA Protein Negative Normal Negative [facility] ([place]) Comment on above: Performed By: #### U A #### [address] [place], [place] [address] UA Spec Grav 1.015 Normal 1.015-1.025 [facility] ([place]) Comment on above: Performed By: #### U A #### [address] [place], [place] [address] UA Specimen Type Clean Catch Normal [facility] ([place]) Comment on above: Performed By: #### U A #### [address] [place], [place] [address] UA Urobilinogen 0.2 E.U./dL Normal 0.2-1.0 [facility] ([place]) Comment on above: Performed By: #### U A #### [address] [place], [place] [address] Urobilinogen (U) [Mass/Vol] Negative Normal Negative [facility] ([place]) Comment on above: Performed By: #### U A #### [address] [place], [place] [address] .Auto Diffon 10-20-2022 Basophil, Absolute 0.1 10 3/mcL Normal 0.0-0.2 [facility] ([place]) Comment on above: Performed By: #### C LANI, KLARISSA LOCKE MDW, LIP, ANEU, GFR #### [address] [address] Basophils/100 WBC (Bld) 1.1 % Normal 0.0-2.5 A [facility] ([place]) Comment on above: Performed By: #### C LANI, KLARISSA LOCKE MDW, LIP, ANEU, GFR #### [place] [address] [place], [place] [address] Eosinophil, Absolute 0.1 10 3/mcL Normal 0.0-0.4 [facility] ([place]) Comment on above: Performed By: #### C BC, CMP, ADIFF, MDW, LIP, ANEU, GFR #### [address] [address] Eosinophils/100 WBC (Bld) 1.7 % Normal 0.0-7.0 [facility] ([place]) Comment on above: Performed By: #### C BC, CMP, ADIFF, MDW, LIP, ANEU, GFR #### [address] [address] Lymphocyte, Absolute 2.3 10 3/mcL Normal 0.8-3.9 [facility] ([place]) Comment on above: Performed By: #### C BC, CMP, ADIFF, MDW, LIP, ANEU, GFR #### [address] [address] Lymphocytes/100 WBC (Bld) 26.4 % Normal 10.0-50.0 [facility] ([place]) Comment on above: Performed By: #### C BC, CMP, ADIFF, MDW, LIP, ANEU, GFR #### [address] [address] Monocyte, Absolute 0.6 10 3/mcL Normal 0.2-1.0 [facility] ([place]) Comment on above: Performed By: #### C BC, CMP, ADIFF, MDW, LIP, ANEU, GFR #### [address] [address] Monocytes/100 WBC (Bld) 6.9 % Normal 1.7-13.0 [facility] ([place]) Comment on above: Performed By: #### C BC, CMP, ADIFF, MDW, LIP, ANEU, GFR #### [address] [address] Neutrophils/100 WBC (Bld) 63.9 % Normal 37.0-80.0 [facility] ([place]) Comment on above: Performed By: #### C BC, CMP, ADIFF, MDW, LIP, ANEU, GFR #### [address] [address] .GFRon 10-20-2022 GFR 100 ml/min/1.73sqm Normal [facility] ([place]) Comment on above: Result Comment: GFR Population [...] CORNELIA, ANURAG CYR, LIP, ANEU, GFR #### [address] [address] GFR Non- 83 ml/min/1.73sqm Normal [facility] ([place]) Comment on above: Result Comment: GFR Population [...] meters Performed By: #### C BC, CORNELIA, ANURAG CYR, LIP, ANEU, GFR #### [address] [address] .MDWon 10-20-2022 Monocyte Distribution Width 16.96 Normal 0.00-20.00 [facility] ([place]) Comment on above: Result Comment: For ED adult patients suspected of sepsis, MDW<=20.0 does not rule out sepsis or risk of sepsis Performed By: #### C BC, CORNELIA, KLARISSA, W, LIP, ANEU, GFR #### [place] [address] .NEUABSon 10-20-2022 Neutrophil, Absolute 5.5 10 3/mcL Normal 2.9-6.2 [facility] ([place]) Comment on above: Performed By: #### C BC, CMP, KLARISSA, MDW, LIP, ANEU, GFR #### [place] [address] CBCon 10-20-2022 Erythrocyte distribution width (RBC) [Ratio] 12.9 % Normal 11.5-14.5 [facility] ([place]) Comment on above: Performed By: #### C BC, CMP, KLARISSA, MDW, LIP, ANEU, GFR #### [place] [address] Hematocrit (Bld) [Volume fraction] 41.4 % Low 42.0-52.0 [facility] ([place]) Comment on above: Performed By: #### C BC, CORNELIA, KLARISSA, MDW, LIP, ANEU, GFR #### [place] [address] Hgb 14.1 G/dL Normal 14.0-18.0 [facility] ([place]) Comment on above: Performed By: #### C BC, CMP, KLARISSA, MDW, LIP, ANEU, GFR #### [place] [address] MCH (RBC) [Entitic mass] 30.4 pg Normal 27.0-31.2 [facility] ([place]) Comment on above: Performed By: #### C BC, CMP, KLARISSA, MDW, LIP, ANEU, GFR #### [place] [address] MCHC 34.0 G/dL Normal 31.8-35.4 [facility] ([place]) Comment on above: Performed By: #### C BC, CMP, ADJAN, MDW, LIP, ANEU, GFR #### [address] [address] MCV (RBC) [Entitic vol] 89.5 fL Normal 80.0-94.0 A [facility] ([place]) Comment on above: Performed By: #### C BC, CMP, ADIFF, MDW, LIP, ANEU, GFR #### [address] [address] Platelet 288 10 3/mcL Normal 130-400 [facility] ([place]) Comment on above: Performed By: #### C BC, CMP, ADIFF, MDW, LIP, ANEU, GFR #### [address] [address] Platelet mean volume (Bld) [Entitic vol] 7.3 fL Low 7.4-10.4 [facility] ([place]) Comment on above: Performed By: #### C BC, CMP, ADIFF, MDW, LIP, ANEU, GFR #### [address] [address] RBC 4.62 10 6/mcL Normal 4.04-6.13 [facility] ([place]) Comment on above: Performed By: #### C BC, CMP, ADIFF, MDW, LIP, ANEU, GFR #### [address] [address] WBC 8.6 10 3/mcL Normal 4.6-10.8 [facility] ([place]) Comment on above: Performed By: #### C BC, CMP, ADIFF, MDW, LIP, ANEU, GFR #### [address] [address] CMPon 10-20-2022 Albumin Level 3.4 G/dL Low 3.5-5.0 [facility] ([place]) Comment on above: Performed By: #### C BC, CMP, ADIFF, MDW, LIP, ANEU, GFR #### [address] [address] Albumin/Globulin [Mass ratio] 1.1 {ratio} Normal 1.1-2.5 [facility] ([place]) Comment on above: Performed By: #### C LANI, CORNELIA, KLARISSA, ANURAG, LIP, ANEU, GFR #### [address] [address] ALP [Catalytic activity/Vol] 47 U/L Normal 40-135 [facility] ([place]) Comment on above: Performed By: #### C BC, CORNELIA, KLARISSA, ANURAG, LIP, ANEU, GFR #### [address] [address] ALT [Catalytic activity/Vol] 21 U/L Normal 16-63 [facility] ([place]) Comment on above: Performed By: #### C LANI, CORNELIA, ANURAG CYR, LIP, ANEU, GFR #### [address] [address] AST [Catalytic activity/Vol] 18 U/L Normal 10-40 [facility] ([place]) Comment on above: Performed By: #### C BC, CORNELIA, ANURAG CYR, LIP, ANEU, GFR #### [address] [address] Bili Total 0.2 mg/dL Normal 0.2-1.0 [facility] ([place]) Comment on above: Result Comment: Use of this assay is not recommended for patients undergoing treatment with eltrombopag due to the potential for falsely elevated results. Performed By: #### C BC, CORNELIA, ANURAG CYR, LIP, ANEU, GFR #### [address] [address] BUN/Creatinine Ratio 13 ratio Normal 7-27 [facility] ([place]) Comment on above: Performed By: #### C LANI, CORNELIA, ANURAG CYR, LIP, ANEU, GFR #### [address] [address] Calcium [Mass/Vol] 8.8 mg/dL Normal 8.4-10.2 [facility] ([place]) Comment on above: Performed By: #### C BC, CORNELIA, ANURAG CYR, LIP, ANEU, GFR #### [address] [address] Chloride [Moles/Vol] 105 mmol/L Normal 98-107 [facility] ([place]) Comment on above: Performed By: #### C BC, CMP, KLARISSA, W, LIP, ANEU, GFR #### [address] [address] CO2 [Moles/Vol] 27 mmol/L Normal 22-29 [facility] ([place]) Comment on above: Performed By: #### C BC, CMP, KLARISSA, W, LIP, ANEU, GFR #### [address] [address] Creatinine [Mass/Vol] 0.99 mg/dL Normal 0.70-1.30 Pending sale to [facility] ([place]) Comment on above: Performed By: #### C BC, CMP, KLARISSA, W, LIP, ANEU, GFR #### [address] [address] Electrolyte Balance 9.0 mEq/L Normal 4.0-15.0 [facility] ([place]) Comment on above: Performed By: #### C BC, CMP, KLARISSA, W, LIP, ANEU, GFR #### [address] [address] Globulin 3.2 G/dL Normal [facility] ([place]) Comment on above: Performed By: #### C BC, CMP, KLARISSA, W, LIP, ANEU, GFR #### [address] [address] Glucose [Mass/Vol] 109 mg/dL High 70-105 [facility] ([place]) Comment on above: Performed By: #### C BC, CMP, KLARISSA, W, LIP, ANEU, GFR #### [address] [address] Potassium [Moles/Vol] 3.9 mmol/L Normal 3.5-5.1 Pending sale to [facility] ([place]) Comment on above: Performed By: #### C BC, CMP, ADJAN, MDW, LIP, ANEU, GFR #### [place] [address] [place], [place] [address] Sodium [Moles/Vol] 141 mmol/L Normal 136-145 [facility] ([place]) Comment on above: Performed By: #### C BC, CMP, ADIFF, MDW, LIP, ANEU, GFR #### [place] [address] [place], [place] [address] Total Protein 6.6 G/dL Normal 6.4-8.2 [facility] ([place]) Comment on above: Performed By: #### C BC, CMP, ADIFF, MDW, LIP, ANEU, GFR #### [place] [address] [place], [place] [address] Urea nitrogen [Mass/Vol] 13 mg/dL Normal 7-18 [facility] ([place]) Comment on above: Performed By: #### C BC, CMP, ADIFF, MDW, LIP, ANEU, GFR #### [address] [address] [address] ABD/PELVIS W/ IV CONTRAST ONLYon 10-20-2022 [...] Interpreted by: Wang Francisco Preliminary Report By: Michael Gaspar Electronically signed By Wang Francisco Dictated Date: 10/20/2022 6:05:23 PM Prelim Date: 10/20/2022 6:20:09 PM Sign Date: 10/20/2022 6:25:29 PM Ordering Provider: LEDY Nelson [facility] ([place]) LACon 10-20-2022 Lactic Acid Lvl 1.2 mmol/L Normal 0.4-2.0 [facility] ([place]) Comment on above: Performed By: #### C BC, CMP, KLARISSA, W, LIP, ANEU, GFR #### [place] [address] [place], [place] [address] LIPon 10-20-2022 Lipase Level 43 U/L Normal 16-77 [facility] ([place]) Comment on above: Performed By: #### C BC, CMP, KLARISSA, MDW, LIP, ANEU, GFR #### [address] [place], [place] [address] LABORATORYOrdered By: Usha Tenorio on 08-28-2022 Basophil, [...] Invalid Interpretation Code 0.0 - 2.5 % AH Workflow SS Bilirubin [Mass/Vol] 0.30 mg/dL Invalid [...] strip (U) [Mass/Vol] Negative Invalid Interpretation Code Negativemg/ dL AH Auto Urine SS Hemoglobin Auto test strip (U) [Mass/Vol] Negative (08/18/22 12:18 PM) Invalid Interpretation Code Neg-Trace AH Auto Urine SS Ketones Ql (U) Negative Invalid Interpretation Code Neg-Tracemg /dL AH Auto Urine SS UA Leuk Est Negative (08/18/22 12:18 PM) Invalid Interpretation Code Negative AH Auto Urine SS UA Nitrite Negative (08/18/22 12:18 PM) Invalid Interpretation Code Negative AH Auto Urine SS UA pH 7.5 (08/18/22 12:18 PM) Invalid Interpretation Code 5.0 - 8.0 AH Auto Urine SS UA Protein Negative Invalid Interpretation Code Negativemg/ dL AH Auto Urine SS UA Spec Grav 1.020 (08/18/22 12:18 PM) Invalid Interpretation Code 1.006-1.029 AH Auto Urine SS UA Specimen Type Clean Catch (08/18/22 12:18 PM) Invalid Interpretation Code AH Auto Urine SS UA Urobilinogen 0.2 E.U./dL Invalid Interpretation Code 0.2-1.0E.U. /dL AH Auto Urine SS LABORATORYOrdered By: SYSTEM [...] strip (U) [Mass/Vol] Negative Invalid Interpretation Code Negativemg/ dL AO Auto Urine SS Hematocrit (Bld) [Volume fraction] 41.1 % Invalid Interpretation Code 42.0 - 52.0 % AO Workflow SS Hemoglobin (Bld) [Mass/Vol] 13.9 G/dL Invalid Interpretation Code 14.0 - 18.0 G/dL AO Workflow SS Hemoglobin Auto test strip (U) [Mass/Vol] Negative (07/22/22 10:41 AM) Invalid Interpretation Code Negative AO Auto Urine SS Ketones Ql (U) Negative Invalid Interpretation Code Negativemg/ dL AO Auto Urine SS Lymphocyte, Absolute 1.5 [...] UA Protein 30 mg/dL Invalid Interpretation Code Negativemg/ dL AO Auto Urine SS UA RBC 0-5 [...] UA Urobilinogen 0.2 E.U./dL Invalid Interpretation Code 0.2-1.0E.U. /dL AO Auto Urine SS WBC (Bld) [#/Vol] [...] 10.8 10^3/mcL AO Workflow SS LABORATORYOrdered By: [employer] on 07-15-2022 Calcium [Mass/Vol] 8.4 mg/dL [...] strip (U) [Mass/Vol] Negative Invalid Interpretation Code Negativemg/ dL AO Auto Urine SS Hemoglobin Auto test strip (U) [Mass/Vol] Negative (06/27/22 11:48 PM) Invalid Interpretation Code Negative AO Auto Urine SS Ketones Ql (U) Negative Invalid Interpretation Code Negativemg/ dL AO Auto Urine SS UA Leuk Est Negative (06/27/22 11:48 PM) Invalid Interpretation Code Negative AO Auto Urine SS UA Nitrite Negative (06/27/22 11:48 PM) Invalid Interpretation Code Negative AO Auto Urine SS UA pH 6.5 (06/27/22 11:48 PM) Invalid Interpretation Code 5.0 - 8.0 AO Auto Urine SS UA Protein Negative Invalid Interpretation Code Negativemg/ dL AO Auto Urine SS UA Spec Grav 1.010 *ABN* (06/27/22 11:48 PM) Invalid Interpretation Code 1.015-1.025 AO Auto Urine SS UA Specimen Type Void (06/27/22 11:48 PM) Invalid Interpretation Code AO Auto Urine SS UA Urobilinogen 0.2 E.U./dL Invalid Interpretation Code 0.2-1.0E.U. /dL AO Auto Urine SS Basophil, Absolute 0.1 [...] [Moles/Vol] 6 mmol/L 3 - 13 mmol/L [facility] [place] Calcium [Mass/Vol] 9.0 mg/dL 8.4 - 10. 4 mg/dL [facility] [place] Chloride [Moles/Vol] 105 mmol/L 98 - 10 7 mmol/L [facility] CO2 [Moles/Vol] 26 mmol/L 22 - 30 mmol/L [facility] Creatinine [Mass/Vol] 0.71 mg/dL 0.66 - 1.25 mg/dL [facility] GFR/1.73 sq M.predicted MDRD (S/P/Bld) [Vol rate/Area] - PINF [facility] Comment on above: Calculation based on the Chronic Kidney Disease Epidemiology Collaboration (CKD-EPI) equation refit without adjustment for race Glucose [Mass/Vol] 100 mg/dL 70 - 100 mg/dL [facility] Interpretation and review of laboratory results Normal [facility] Potassium [Moles/Vol] 4.3 mmol/L 3.5 - 5.1 mmol/L [facility] Sodium [Moles/Vol] 137 mmol/L 135 - 145 mmol/L [facility] Urea nitrogen [Mass/Vol] 14 mg/dL 9 - 20 mg/dL [facility] CBC W Auto Differential pane l (Bld)Ordered By: Michael Biggs on 06-19-2022 Basophils (Bld) [#/Vol] 0.1 10*3/uL 0.0 - 0.2 10*3/uL [facility] Basophils/100 WBC (Bld) 1.3 % 0.0 - 2.0 % [facility] Eosinophils (Bld) [#/Vol] 0.2 10*3/uL 0.0 - 0.5 10*3/uL [facility] Eosinophils/100 WBC (Bld) 2.4 % 1.0 - 6.0 % [facility] Erythrocyte distribution width (RBC) [Ratio] 14.3 % 11.5 - 14.5 % [facility] Hematocrit (Bld) [Volume fraction] 42.3 % 40.0 - 52.0 % [facility] Hemoglobin (Bld) [Mass/Vol] 14.5 g/dL 13.0 - 18.0 g/dL [facility] Interpretation and review of laboratory results Abnormal [facility] Lymphocytes (Bld) [#/Vol] 2.9 10*3/uL 1.0 - 4.3 10*3/uL [facility] Lymphocytes/100 WBC (Bld) 31.3 % 20.0 - 40.0 % [facility] MCH (RBC) [Entitic mass] 30.7 pg 26.0 - 34.0 pg [facility] MCHC (RBC) [Mass/Vol] 34.2 % 32.0 - 36.0 % [facility] MCV (RBC) [Entitic vol] 90.0 fL 80.0 - 98.0 fL [facility] Monocytes (Bld) [#/Vol] 0.6 10*3/uL 0.0 - 0.8 10*3/uL [facility] Monocytes/100 WBC (Bld) 6.3 % 2.0 - 10.0 % [facility] Neutrophils (Bld) [#/Vol] 5.4 10*3/uL 1.8 - 7.0 10*3/uL [facility] Neutrophils/100 WBC (Bld) 58.7 % 40.0 - 80.0 % [facility] Nucleated RBC/100 WBC (Bld) [Ratio] 0.0 % [facility] Platelet mean volume (Bld) [Entitic vol] 7.0 fL Low 7.4 - 12.4 fL [facility] Platelets (Bld) [#/Vol] 296 10*3/uL 140 - 440 10*3/uL [facility] RBC (Bld) [#/Vol] 4.70 10*6/uL 4.40 - 5.9 0 10*6/uL [facility] WBC (Bld) [#/Vol] 9.2 10*3/uL 3.6 - 10.7 10*3/uL [facility] - Drug toxicology on 06-19-2022 carBAMazepine [Mass/Vol] 14.5 ug/mL High 4.0 - 12.0 ug/mL [facility] No Panel Informationon 06-19 Interpretation and review of laboratory results Abnormal [facility] EMERGENCY REPORTon 2 EMERGENCY REPORT [facility] EMERGENCY ROOM REPORT NAME ACCOUNT SEX AGE ADMIT DISCHARGE PT MED. 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 He works at an [employer] business. He has done that for sometime. [...] sinus mechanism without any evidence of acute RI or ischemia. Rate was 111. Emergency room [...] Patrick Vigil DO 05/23/22 07:02 JOB #: [id number] Transcribed By: am 05/23/22 13:53 Electronically signed by: E-SIGN PATRICK VIGIL DO 06/12/22 05:26 Page 2 of 2 PATRICK KOROMA Emergency Room Report A Normal [facility] CT ABDOMEN PELVIS WITH IV CO NTRAST [...] thickening. Please correlate with urinalysis for infection. [facility] Workstation ID: [id number] Dictated by: ROSAURA ROBLES on FriJun 10, 2022 2:32:31 AM EST Transcribed by: CHARLIE JIMENEZ on FriJun 10, 2022 2:35:27 AM EST Finalized by: ROSAURA ROBLES on FriJun 10, 2022 2:46:42 AM EST Normal [facility] Comment on above: Order Comment: Injur y/Trauma or Illness?:Illness/Other How long have you had these symptoms (acute/chronic)?:Acute Reason for exam?:abd pain, previous hernia surgery Type of Exam?:Initial Additional signs and symptoms?: CT ANGIOGRAM HEAD NECKon CT ANGIOGRAM HEAD NECK EXAMINATION: CT ANGIOGRAM HEAD NECK HISTORY: Diffuse headache and history of brain aneurysm 2004 Injury/Trauma or Illness?:Illness/Othe r How long have [...] origins. There is bilateral takeoff of the AGENT LICENSING CLERK contributing to the vertebrobasilar system hypoplasia. No large vessel occlusion is seen. 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 OTHER: No pathologic intracranial enhancement is seen. IMPRESSION: 1. No acute intracranial abnormality. No hemorrhage or mass effect. 2. Intracranial extracranial vessels demonstrate no stenosis, thrombus, dissection, aneurysm, or large vessel occlusion. 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 3. Acute on chronic ahas sinusitis in the appropriate clinical setting. A [...] FriJun 06, 2022 12:50:41 AM EST Normal [facility] Comment on above: Order Comment: Injur [...] CRP 2.80 mg/dl High 0.00 - 0.90 [facility] Comment on above: Performed By: #### 2 57112 #### [facility],[address] [place] [address] CBC + DIFFon 05-23-2022 Baso # 0.10 x10EE3/UL Normal 0.00 - 0.10 [facility] Comment on above: Performed By: #### 2 66707 #### [facility],[address] [place] [address] Basophils/100 WBC (Bld) 1.1 % Normal 0.0 - 2.0 [facility] Comment on above: Performed By: #### 2 85479 #### [facility],[address] [place] [address] CBC + DIFF Normal [facility] Comment on above: Result Comment: CBC- COMPLETE BLOOD COUNT Performed By: #### 2 85075 #### [place] [address] EO # 0.20 x10EE3/UL Normal 0.00 - 0.50 [facility] Comment on above: Performed By: #### 2 15723 #### [facility],[address] [place], [place] [address] Eosinophils/100 WBC (Bld) 1.2 % Normal 0.0 - 7.0 [facility] Comment on above: Performed By: #### 2 98506 #### [place] [address] Erythrocyte distribution width (RBC) [Ratio] 13.4 % Normal 12.0 - 15.6 [facility] Comment on above: Performed By: #### 2 06749 #### [facility],[address] [place] [address] Hematocrit (Bld) [Volume fraction] 44.7 % Normal 40.0 - 52.0 [facility] Comment on above: Performed By: #### 2 97083 #### [facility],[address] [place] [address] Hemoglobin (Bld) [Mass/Vol] 15.0 g/dL Normal 13.0 - 17.5 [facility] Comment on above: Performed By: #### 2 55361 #### [facility],[address] [place], [place] [address] Lymph # 2.80 x10EE3/UL Normal 0.80 - 2.80 [facility] Comment on above: Performed By: #### 2 01098 #### [facility],[address] [place], [place] [address] Lymphocytes/100 WBC (Bld) 19.8 % Low 20.0 - 45.0 [facility] Comment on above: Performed By: #### 2 55977 #### [facility],[address] [place] [address] 29357 MANUAL DIFF N/A Normal [facility] Comment on above: Performed By: #### 2 90731 #### [facility],[address] [place] [address] 68328 MCH (RBC) [Entitic mass] 30 pg Normal 27 - 33 [facility] Comment on above: Performed By: #### 2 17449 #### [facility],[address] [place] [address] 85913 MCHC 34 X10 3 Normal 32 - 36 [facility] Comment on above: Performed By: #### 2 19045 #### [facility],[address] [place] [address] 13571 MCV (RBC) [Entitic vol] 90 fL Normal 81 - 98 [facility] Comment on above: Performed By: #### 2 57840 #### [facility],[address] [place] [address]202 Spink # 1.00 x10EE3/UL Normal 0.20 - 1.00 [facility] Comment on above: Performed By: #### 2 01856 #### [facility],[address] [place] [address] 35450 MONOS % 6.8 % Normal 0.0 - 10.0 [facility] Comment on above: Performed By: #### 2 97185 #### [facility],[address] [place] [address] 53825 Morphology Alonso (Bld) [Interp] N/A Normal [facility] Comment on above: Result Comment: {CD] Performed By: #### 2 31631 #### [facility],[address] [place] [address] 71096 Neut # 10.00 x10EE3/UL High 1.50 - 7.10 [facility] Comment on above: Performed By: #### 2 79595 #### [facility],[address] [place] [address] 80659 Neutrophils/100 WBC (Bld) 71.1 % Normal 46.0 - 76.0 [facility] Comment on above: Performed By: #### 2 52229 #### [facility],[address] [place] [address] 92811 PLATELET 313 x10EE3/UL Normal 150 - 450 [facility] Comment on above: Performed By: #### 2 46620 #### [facility],[address] [place] [address] 56612 Platelet mean volume (Bld) [Entitic vol] 7.7 fL Normal 6.4 - 10.5 [facility] Comment on above: Result Comment: AUTO MATED DIFFERENTIAL Performed By: #### 2 30848 #### [facility],[address] [place] [address] 00685 RBC 4.95 x 10EE6/UL Normal 4.50 - 6.00 [facility] Comment on above: Performed By: #### 2 26975 #### [facility],[address] [place] [address] 74775 WBC 14.0 x 10EE3/UL High 4.5 - 10.8 [facility] Comment on above: Performed By: #### 2 78469 #### [facility],[address] [place] [address] 75240 CMP with eGFRon 05-23-2022 AGE 42 years Normal [facility] Comment on above: Performed By: #### 2 60786 #### [facility],[address] [place] [address] 37742 Albumin [Mass/Vol] 3.5 g/dL Normal 3.4 - 5.0 [facility] Comment on above: Performed By: #### 2 71904 #### [facility],[address] [place] [address] 41621 Albumin/Globulin [Mass ratio] 0.9 {ratio} Normal 0.9 - 1.6 [facility] Comment on above: Performed By: #### 2 09656 #### [facility],[address] [place] [address] 64906 ALK PHOS 44 U/L Low 46 - 116 [facility] Comment on above: Performed By: #### 2 41347 #### [facility],[address] [place] [address] 28337 ALT [Catalytic activity/Vol] 21 U/L Normal 16 - 63 [facility] Comment on above: Performed By: #### 2 29340 #### [facility],[address] [place] [address] 38705 Anion gap [Moles/Vol] 10 mmol/L Normal 10 - 20 [facility] Comment on above: Performed By: #### 2 46921 #### [facility],[address] [place] [address] 82261 AST [Catalytic activity/Vol] 16 U/L Normal 15 - 37 [facility] Comment on above: Performed By: #### 2 43641 #### [facility],[address] [place] [address] 54509 B/C RATIO 11 ratio Normal 0 - 30 [facility] Comment on above: Performed By: #### 2 89644 #### [facility],[address] [place] [address] 01421 Bilirubin [Mass/Vol] 0.2 mg/dL Normal 0.2 - 1.0 [facility] Comment on above: Performed By: #### 2 62130 #### [facility],[address] [place] [address] 25535 Calcium [Mass/Vol] 9.0 mg/dL Normal 8.5 - 10.1 [facility] Comment on above: Performed By: #### 2 26682 #### [facility],[address] [place] [address] 64532 Chloride [Moles/Vol] 101 mmol/L Normal 98 - 107 [facility] Comment on above: Performed By: #### 2 87928 #### [facility],[address] [place] [address] 93253 CMP with eGFR Normal [facility] Comment on above: Result Comment: COMP REHENSIVE METABOLIC PANEL Performed By: #### 2 56622 #### [facility],[address] [place] [address] 37714 CO2 [Moles/Vol] 30.2 mmol/L Normal 21.0 - 32.0 [facility] Comment on above: Performed By: #### 2 18428 #### [facility],[address] [place] [address] 18344 Creatinine [Mass/Vol] 0.91 mg/dL Normal 0.70 - 1.30 [facility] Comment on above: Performed By: #### 2 87563 #### [facility],[address] [place] [address] 56010 GFR/1.73 sq M.predicted among non-blacks MDRD (S/P/Bld) [Vol rate/Area] mL/min/{1.73_m2} Normal 60 - 999 [facility] Comment on above: Performed By: #### 2 39780 #### [facility],[address] [place] [address] 40334 Result Comment: ACCO RDING TO THE NATIONAL KIDNEY DISEASE EDUCATION PROGRAM(NKDE), A NORMAL eGFR IS A VALUE GREATER THAN OR EQUAL TO 60 ML/MIN/1.73 SQ METERS. CHRONIC KIDNEY DISEASE: <60mL/MIN/1.73 SQ METERS KIDNEY FAILURE: <15mL/MIN/1.73 SQ METERS THIS TEST SHOULD ONLY BE USED FOR PATIENTS 18 YEARS OF AGE AND OLDER. Globulin (S) [Mass/Vol] 3.7 g/dL Normal 1.5 - 3.8 [facility] Comment on above: Performed By: #### 2 76316 #### [facility],[address] [place] [address] 07744 Glucose [Mass/Vol] 104 mg/dL Normal 74 - 106 [facility] Comment on above: Performed By: #### 2 36238 #### [facility],[address] [place] [address] 60287 Potassium [Moles/Vol] 3.8 mmol/L Normal 3.5 - 5.1 [facility] Comment on above: Performed By: #### 2 06329 #### [facility],[address] [place] [address] 38885 Protein [Mass/Vol] 7.2 g/dL Normal 6.4 - 8.2 [facility] Comment on above: Performed By: #### 2 65784 #### [facility],[address] [place] [address] 16907 Sodium [Moles/Vol] 137 mmol/L Normal 136 - 145 [facility] Comment on above: Performed By: #### 2 97324 #### [facility],[address] [place] [address] 90826 Urea nitrogen [Mass/Vol] 10 mg/dL Normal 7 - 18 [facility] Comment on above: Performed By: #### 2 21896 #### [facility],[address] [place] [address] BRAIN W/O CONTRASTon 12-0 CT BRAIN W/O CONTRAST [address] [address] Patient: PATRICK KOROMA Phone#: : [phone] Age: 42 Gender: M Pt. Type: ER Account: [id number] Location: 2 Ordering: DR. PATRICK VIGIL Exam Date: 05/22/2022/23:10 Family Phys: Charge Code: 699237 Physician: [place] Order #: [id number] Dose#: [id number] PROCEDURE: CT BRAIN WITHOUT CONTRAST COMPARISON: [facility], CT, BRAIN W/O CON, 12/03/2011, 2:09. [...] Waters MD on 05/23/2022 at 14:41 Normal [facility] SEDRATEon 05-23-2022 SEDRATE 13 mm/hr Normal 0 - 20 [facility] Comment on above: Performed By: #### 2 18374 #### [facility],[address] [place], [place] [id number] TROPONIN I, HIGH SENSITIVITY on 05-23-2022 HS TROPONIN 4.4 pg/mL Normal 0.0 - 76.2 [facility] Comment on above: Performed By: #### 2 11187 #### [facility],[address] [place] [address] 68328 XR SHOULDER RIGHT (MIN 2 VIE WS)on [...] Rosas Silva MD 04/25/22 Final result Normal [facility] Comment on above: Order Comment: Reaso n for exam:->ac joint deformity/pain No acute abnormality . [facility] CONSOLIDATED EXAMINATION: THREE XRAY [...] lung is unremarkable. IMPRESSION: No acute abnormality. [employer] Phone: Radiology Study observation (narrative) [employer] Phone: XR SHOULDER RIGHT (MIN 2 VIE WS)Ordered By: Rosas Silva on 04-25-2022 [employer] Phone: XR WRIST RIGHT (MIN 3 VIEWS) [...] Abdifatah Child DO 04/03/22 Final result Normal [facility] Comment on above: Order Comment: Reaso n [...] acute osseous abnormality involving the right wrist. [employer] Phone: Radiology Study observation (narrative) RICKIE CORTÉS [employer] Phone: XR WRIST RIGHT (MIN 3 VIEWS) Ordered By: Abdifatah Child on 04-03-2022 RICKIE ADOLFO JOOR Work Phone: CT CERVICAL SPINE WO VINCE Yu 03-08-2022 Patient Name: PATRICK KOROMA Computed Tomography ACCESSION EXAM DATE/TIME PROCEDURE ORDERING PROVIDER [id number] 03/08/2022 01:[address] Spine Cervical w/o [id number] -DARRION, GILES Contrast CPT code 42151 Reason For Exam (CT Spine Cervical w/o [...] Transcribed Date and Time: 03/08/2022 1:50 [facility] Shankar Haas MD - 03/08/2022 Patient Name: PATRICK KOROMA Computed Tomography ACCESSION EXAM DATE/TIME PROCEDURE ORDERING PROVIDER [id number] 03/08/2022 01:[address] Spine Cervical w/o [id number] -DARRION, GILES Contrast CPT code 09351 Reason For Exam (CT Spine Cervical w/o [...] KEVIN Transcribed Date and Time: 03/08/2022 1:50 [facility] Work Phone: [facility] Work Phone: CT HEAD WO CONTRASTon 2021 [id number] Tomography ACCESSION EXAM DATE/TIME PROCEDURE ORDERING PROVIDER [id number] 03/08/2022 01:[address] Head or Brain w/o [id number] -DARRION, GILES Contrast CPT code 32401 Reason For Exam (CT Head or Brain [...] KEVIN Transcribed Date and Time: 03/08/2022 1:48 Shankar Mares MD - 03/08/2022 Patient Name: PATRICK KOROMA Computed Tomography ACCESSION EXAM DATE/TIME PROCEDURE ORDERING PROVIDER [id number] 03/08/2022 01:[address] Head or Brain w/o [id number] -DARRION, GILES Contrast CPT code 78469 Reason For Exam (CT Head or Brain [...] Tomography ACCESSION EXAM DATE/TIME PROCEDURE ORDERING PROVIDER [id number] 03/08/2022 01:[address] Head or Brain w/o 333492 -DARRION, GILES Contrast CPT code 22137 Reason For Exam (CT Head or Brain [...] Transcribed Date and Time: 03/08/2022 1:48 Normal [facility] CT Spine Cervical w/o Contra ston 03-08-2022 CT Spine Cervical w/o Contrast Patient Name: PATRICK KOROMA Computed Tomography ACCESSION EXAM DATE/TIME PROCEDURE ORDERING PROVIDER [id number] 03/08/2022 01:[address] Spine Cervical w/o [id number] -DARRION, GILES Contrast CPT code 11892 Reason For Exam (CT Spine Cervical w/o [...] Transcribed Date and Time: 03/08/2022 1:50 Normal [facility] ED Provider Noteon ED Provider Note GEORGE PURCELL ED EMERGENCY DEPARTMENT ENCOUNTER Pt Name: Patrick [...] plan and expressed understanding. 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 Normal [facility] [employer] No Panel Informationon 03-08 Radiology Study observation (narrative) [employer] Work Phone: Absolute lymphocyte counton 01-01-2022 Lymphocytes Auto (Unsp spec) [#/Vol] 2.19 10*3/uL 0.83-4.51 [facility] Work Phone: Basophil percentageon 2021 Basophils/100 WBC (Bld) 0.5 % 0-[address] [facility] Work Phone: Bilirubin [Mass/Vol] 0.20 mg/dL 0.20-1.00 [facility] Work Phone: Comment on above: For patients on eltr ombopag therapy, use of [employer] [place] TBIL is not recommended. Chloride [Moles/Vol] 111 mmol/L 98-107 [facility] Work Phone: Eosinophils/100 WBC (Bld) 1.6 % 0-5 [facility] Work Phone: Glucose [Mass/Vol] 103 mg/dL 74-106 [facility] Work Phone: Comment on above: Fasting Glucose resu lt from 100 to 125 mg/dL suggests IMPAIRED HOMEOSTASIS per A.D.A. criteria. Neutrophils (Bld) [#/Vol] 7.1 10*3/uL 2.0-7.7 [facility] Work Phone: Neutrophils/100 WBC (Bld) 70.0 % 47-70 [facility] Work Phone: Potassium [Moles/Vol] 3.9 mmol/L 3.5-5.1 [facility] Work Phone: Protein [Mass/Vol] 7.1 g/dL 6.4-8.2 [facility] Work Phone: Sodium [Moles/Vol] 140 mmol/L 136-145 [facility] Work Phone: WBC (Bld) [#/Vol] 10.2 10*3/uL 4.4-11.0 [facility] Work Phone: Blood erythrocytes count (nu mber/volume)on 01-01-2022 RBC (Bld) [#/Vol] 4.65 10*6/uL 4.6-6.2 [facility] Work Phone: Blood hemoglobin measurement (mass/volume)on 01-01-2022 Hemoglobin (Bld) [Mass/Vol] 14.1 g/dL 13.0-16.5 [facility] Work Phone: Blood lymphocytes/100 leukoc yteson 01-01-2022 Lymphocytes/100 WBC (Bld) 21.6 % 19-41 [facility] Work Phone: Blood monocytes/100 leukocyt eson 01-01-2022 Monocytes/100 WBC (Bld) 5.8 % 0-[address] [facility] Work Phone: Blood platelet mean volumeon 01-01-2022 Platelet mean volume (Bld) [Entitic vol] 9.2 fL 6.2-12.0 [facility] Work Phone: Determination of erythrocyte mean corpuscular volume (MCV)on 01-01-2022 MCV (RBC) [Entitic vol] 92.7 fL 80-[address] [facility] Work Phone: Direct bilirubinon Bilirubin.direct [Mass/Vol] 0.09 mg/dL 0.00-0.30 [facility] Work Phone: Hematocrit Auto (Bld) [Volum e fraction]on 01-01-2022 Hematocrit (Bld) [Volume fraction] 43.1 % 40-54 [facility] Work Phone: INR in Blood by Coagulation assayon 01-01-2022 INR Coag (Bld) [Relative time] 0.9 {INR} [facility] Work Phone: Laboratory - Chemistry and C hemistry - challengeon 01-01-2022 ALP [Catalytic activity/Vol] 43 U/L 45-117 [facility] Work Phone: ALT [Catalytic activity/Vol] 27 U/L 16-61 [facility] Work Phone: CO2 [Moles/Vol] 25.0 mmol/L 21.0-32.0 [facility] Work Phone: Globulin (S) [Mass/Vol] 3.8 g/dL 2.2-4.[address] [facility] Work Phone: Urea nitrogen/Creatinine [Mass ratio] 9.2 mg/mg 10-20 [facility] Work Phone: Laboratory - Coagulationon 0 01-01-2022 aPTT Coag (Bld) [Time] 25.8 s 24.1-36.2 Wo marco a [facility] Work Phone: PT Coag (PPP) [Time] 11.9 s 11.7-14.9 [facility] Work Phone: Laboratory - Hematology and Cell countson 01-01-2022 Erythrocyte distribution width (RBC) [Entitic vol] 43.3 fL 35.1-43.9 [facility] Work Phone: Erythrocyte distribution width (RBC) [Ratio] 12.7 % 11.6-14.6 [facility] Work Phone: Immature granulocytes/100 WBC (Bld) 0.500 % 0.0-0.9 [facility] Work Phone: Comment on above: IG% - Immature Granu locytes (promyelocytes, myelocytes and metamyelocytes) > 1% indicates that a LEFT SHIFT is Present. MCH (RBC) [Entitic mass] 30.3 pg 27.0-32.0 [facility] Work Phone: Nucleated RBC/100 WBC (Bld) [Ratio] 0 % 0-5 [facility] Work Phone: MCHC Auto (RBC) [Mass/Vol]on 01-01-2022 MCHC (RBC) [Mass/Vol] 32.7 g/dL 32-36 [facility] Work Phone: No Panel Informationon 01-01 Estimated Creatinine Clearance Calc 125.00 ml/min [facility] Work Phone: Estimated GFR (MDRD) Amer 123 mL/min >60 [facility] Work Phone: Comment on above: GFR Calc Estimated GFR (MDRD) Non-Af Amer 101 mL/min >60 [facility] Work Phone: Comment on above: Non- GFR Calc Platelets bldon 01-01-2022 Platelets (Bld) [#/Vol] 328 10*3/uL 150-450 [facility] Work Phone: Serum or plasma albumin za urement (mass/volume)on 01-01-2022 Albumin [Mass/Vol] 3.3 g/dL 3.2-5.0 [facility] Work Phone: Serum or plasma calcium za urement (mass/volume)on 01-01-2022 Calcium [Mass/Vol] 9.1 mg/dL 8.5-10.1 [facility] Work Phone: Serum or plasma creatinine m easurement (mass/volume)on 01-01-2022 Creatinine [Mass/Vol] 0.87 mg/dL 0.70-1.30 [facility] Work Phone: Comment on above: The validity of the calculated GFR & GFRAA in patients over 70 years has not been determined. Clinical correlation is essential. Serum or plasma urea nitroge n measurement (mass/volume)on 01-01-2022 Urea nitrogen [Mass/Vol] 8 mg/dL 7-18 [facility] Work Phone: Thin prep Papanicolaou smear with manual screeningon 01-01-2022 Thin prep Papanicolaou smear with manual screening 22 U/L 15-37 [facility] Work Phone: Thin prep Papanicolaou smear with manual screening 4 5-15 [facility] Work Phone: LABORATORYOrdered By: Sara Echeverria [...] 11-15 Calcium [Mass/Vol] 8.8 mg/dL Normal 8.4-10.4 [facility] Comment on above: Performed By: #### L ACT3, MG3, BMP3, HEMDF #### [address] [address] [place] [address] Glucose [Mass/Vol] 99 mg/dL Normal 70-100 [facility] Comment on above: Performed By: #### L ACT3, MG3, BMP3, HEMDF #### [address] [address] [place] [address] Anion gap [Moles/Vol] 6 mmol/L Normal 3-13 [facility] Comment on above: Performed By: #### L ACT3, MG3, BMP3, HEMDF #### [address] [address] [place] [address] CO2 [Moles/Vol] 27 mmol/L Normal 22-30 [facility] Comment on above: Performed By: #### L ACT3, MG3, BMP3, HEMDF #### [address] [address] [place] [address] Creatinine [Mass/Vol] 0.69 mg/dL Normal 0.52-1.25 [facility] Comment on above: Performed By: #### L ACT3, MG3, BMP3, HEMDF #### [address] [address] [place] [address] eGFR OTHER > 90.0 Normal >60 [facility] Comment on above: Result Comment: KDIG O [...] #### L ACT3, MG3, BMP3, HEMDF #### [facility] [address] [place] [address] GFR/1.73 sq M.predicted among blacks MDRD (S/P/Bld) [Vol rate/Area] mL/min/{1.73_m2} Normal >60 [facility] Comment on above: Performed By: #### L ACT3, MG3, BMP3, HEMDF #### [facility] [address] [place] [address] Urea nitrogen [Mass/Vol] 5 mg/dL Low 7-17 [facility] Comment on above: Performed By: #### L ACT3, MG3, BMP3, HEMDF #### [facility] [address] [place] [address] Chloride [Moles/Vol] 105 mmol/L Normal 98-107 [facility] Comment on above: Performed By: #### L ACT3, MG3, BMP3, HEMDF #### [facility] [address] [place] [address] Potassium [Moles/Vol] 3.8 mmol/L Normal 3.5-5.1 [facility] Comment on above: Performed By: #### L ACT3, MG3, BMP3, HEMDF #### [facility] [address] [place] [address] Sodium [Moles/Vol] 138 mmol/L Normal 135-145 [facility] Comment on above: Performed By: #### L ACT3, MG3, BMP3, HEMDF #### [facility] [address] [place] [address] CT Abdomen/Pelvis w/ Contras ton 12-05-2021 CT Abdomen/Pelvis w/ Contrast Patient Name: PATRICK KOROMA Computed Tomography ACCESSION EXAM DATE/TIME PROCEDURE ORDERING PROVIDER [id number] 12/05/2021 14:[address] Abdomen/Pelvis w/ IV [id number] -JACQUIE, Contrast (IV Onl SUZIE CPT code 74849 [id number] Reason For Exam (CT Abdomen/Pelvis w/ [...] Transcribed Date and Time: 12/05/2021 2:32 Normal [facility] Hemogram w/ Autodiffon 12-05 Abs Baso Cnt 0.1 10*3/uL Normal 0.0-0.2 [facility] Comment on above: Performed By: #### L ACT3, MG3, BMP3, HEMDF #### [address] [address] Abs Neutrophile Cnt 7.3 10*3/uL High 1.8-7.0 [facility] Comment on above: Performed By: #### L ACT3, MG3, BMP3, HEMDF #### [address] [address] Basophils/100 WBC (Bld) 0.7 % Normal 0.0-2.0 [facility] Comment on above: Performed By: #### L ACT3, MG3, BMP3, HEMDF #### [address] [address] Eosinophils (Bld) [#/Vol] 0.2 10*3/uL Normal 0.0-0.5 [facility] Comment on above: Performed By: #### L ACT3, MG3, BMP3, HEMDF #### [address] [address] Eosinophils/100 WBC (Bld) 2.0 % Normal 1.0-6.0 [facility] Comment on above: Performed By: #### L ACT3, MG3, BMP3, HEMDF #### [address] [address] Erythrocyte distribution width (RBC) [Ratio] 13.1 % Normal 11.5-14.5 [facility] Comment on above: Performed By: #### L ACT3, MG3, BMP3, HEMDF #### [address] [address] [place] [address] Granulocytes/100 WBC (Bld) 76.6 % Normal 40.0-80.0 [facility] Comment on above: Performed By: #### L ACT3, MG3, BMP3, HEMDF #### [address] [address] Hematocrit (Bld) [Volume fraction] 39.4 % Low 40.0-52.0 [facility] Comment on above: Performed By: #### L ACT3, MG3, BMP3, HEMDF #### [address] [address] Hemoglobin (Bld) [Mass/Vol] 13.6 g/dL Normal 13.0-18.0 [facility] Comment on above: Performed By: #### L ACT3, MG3, BMP3, HEMDF #### [address] [address] Lymphocytes (Bld) [#/Vol] 1.3 10*3/uL Normal 1.0-4.3 [facility] Comment on above: Performed By: #### L ACT3, MG3, BMP3, HEMDF #### [address] [address] Lymphocytes/100 WBC (Bld) 13.9 % Low 20.0-40.0 [facility] Comment on above: Performed By: #### L ACT3, MG3, BMP3, HEMDF #### [address] [address] MCH (RBC) [Entitic mass] 31.6 pg Normal 26.0-34.0 [facility] Comment on above: Performed By: #### L ACT3, MG3, BMP3, HEMDF #### [address] [address] MCHC 34.5 % Normal 32.0-36.0 [facility] Comment on above: Performed By: #### L ACT3, MG3, BMP3, HEMDF #### [address] [address] MCV (RBC) [Entitic vol] 91.7 fL Normal 80.0-98.0 [facility] Comment on above: Performed By: #### L ACT3, MG3, BMP3, HEMDF #### [address] [address] Monocytes (Bld) [#/Vol] 0.7 10*3/uL Normal 0.0-0.8 [facility] Comment on above: Performed By: #### L ACT3, MG3, BMP3, HEMDF #### [address] [address] Monocytes/100 WBC (Bld) 6.8 % Normal 2.0-10.0 [facility] Comment on above: Performed By: #### L ACT3, MG3, BMP3, HEMDF #### [address] [address] Platelet mean volume (Bld) [Entitic vol] 7.4 fL Normal 7.4-12.4 [facility] Comment on above: Result Comment: MPV is a calculated measurement using platelet volume ratio. Performed By: #### L ACT3, MG3, BMP3, HEMDF #### [address] [address] Platelets (Bld) [#/Vol] 389 10*3/uL Normal 140-440 [facility] Comment on above: Performed By: #### L ACT3, MG3, BMP3, HEMDF #### [address] [address] RBC (Bld) [#/Vol] 4.30 10*6/uL Low 4.40-5.90 [facility] Comment on above: Performed By: #### L ACT3, MG3, BMP3, HEMDF #### [address] [address] WBC (Bld) [#/Vol] 9.6 10*3/uL Normal 3.6-10.7 [facility] Comment on above: Performed By: #### L ACT3, MG3, BMP3, HEMDF #### [facility] [address] [place] [address] Lactic Acidon 12-05-2021 Lactate [Moles/Vol] 1.1 mmol/L Normal 0.7-2.0 [facility] Comment on above: Performed By: #### L ACT3, MG3, BMP3, HEMDF #### [facility] [address] [place] [address] Magnesiumon 12-05-2021 Magnesium [Mass/Vol] 2.2 mg/dL Normal 1.6-2.3 [facility] Comment on above: Performed By: #### L ACT3, MG3, BMP3, HEMDF #### [facility] [address] [place] [address] LABORATORYOrdered By: Sara Echeverria on 11-30-2021 Basophil, [...] Summary Documentson 12-29-2016 Patient Summary Documents [facility] on 12-24-2016 [facility] Note Normal [facility] Patient Summary Documentson 12-23-2016 Patient Summary Documents Normal [facility] XR WRIST COMPLETE RIGHTon XR WRIST COMPLETE [...] PM Sign Date: 12/23/2016 4:46:15 PM [facility] Note on 12-16-2016 [facility] Note Normal [facility] Patient Summary Documentson 12-16-2016 Patient Summary Documents Normal [facility] Vital Signs Date Time Vital Sign Value Performing Clinician Faci marva 12-29-2024 22:56-0400 Body temperature 98.6 [degF] Viola Starkey NP-Marielos Work Phone: [facility] 12-29-2024 22:56-0400 Diastolic blood pressure 94 mm[Hg] Viola Starkey MAKEUP ARTISTRY INSTRUCTOR-C Work Phone: [facility] 12-29-2024 22:56-0400 Heart rate 79 /min Viola Starkey MAKEUP ARTISTRY INSTRUCTOR-C Work Phone: [facility] 12-29-2024 22:56-0400 Respiratory rate 18 /min Viola Starkey MAKEUP ARTISTRY INSTRUCTOR-C Work Phone: [facility] 12-29-2024 22:56-0400 SaO2% (BldA) [Mass fraction] 98 % Viola Starkey MAKEUP ARTISTRY INSTRUCTOR-C Work Phone: [facility] 12-29-2024 22:56-0400 Systolic blood pressure 159 mm[Hg] Viola Starkey MAKEUP ARTISTRY INSTRUCTOR-C Work Phone: [facility] 12-29-2024 21:21-0400 Body height 187.96 cm Viola Starkey MAKEUP ARTISTRY INSTRUCTOR-C Work Phone: [facility] 12-29-2024 21:21-0400 Body mass index (BMI) [Ratio] 44.1 kg/m2 Viola Starkey MAKEUP ARTISTRY INSTRUCTOR-C Work Phone: [facility] 12-29-2024 21:21-0400 Body weight 156.03 kg Viola Starkey MAKEUP ARTISTRY INSTRUCTOR-C Work Phone: [facility] 12-08-2024 23:34-0400 Body height 187.[address] Cristian Tate Work Phone: [facility] 12-08-2024 23:34-0400 Body mass index (BMI) [Ratio] 44.6 kg/m2 Dr. Cristian Tate Work Phone: [facility] 12-08-2024 23:34-0400 Body temperature 98 [degF] Dr. Cristian Tate Work Phone: [facility] 12-08-2024 23:34-0400 Body weight 157.[address] Cristian Le DO Work Phone: 1(115)493-286972 [place] [address] 12-08-2024 23:34-0400 Diastolic blood pressure 105 mm[Hg] Dr. Cristian Tate Work Phone: 3(551)964-493472 [place] [address] 12-08-2024 23:34-0400 Heart rate 104 /min Dr. Cristian Barrera DO Work Phone: 9(867)928-326372 [place] [address] 12-08-2024 23:34-0400 Respiratory rate 22 /min Dr. Cristian Barrera DO Work Phone: 8(646)424-336372 [place] [address] 12-08-2024 23:34-0400 SaO2% (BldA) [Mass fraction] 99 % Dr. Cristian Tate Work Phone: 1(361)475-936705 [place] [address] 12-08-2024 23:34-0400 Systolic blood pressure 175 mm[Hg] Dr. Cristian Tate Work Phone: 5(736)638-152405 [place] [address] 12-07-2024 00:21-0400 Body temperature 96.9 [degF] Dr. Cristian Tate Work Phone: 0(682)574-069705 [place] [address] 12-07-2024 00:21-0400 Diastolic blood pressure 92 mm[Hg] Dr. Cristian Tate Work Phone: 5(205)268-086005 [place] [address] 12-07-2024 00:21-0400 Heart rate 103 /min Dr. Cristian Tate Work Phone: 1(982)305-820605 [place] [address] 12-07-2024 00:21-0400 Respiratory rate 16 /min Dr. Cristian Tate Work Phone: 3(579)348-805572 [place] [address] 12-07-2024 00:21-0400 SaO2% (BldA) [Mass fraction] 99 % Dr. Cristian Tate Work Phone: 0(119)976-630172 [place] [address] 12-07-2024 00:21-0400 Systolic blood pressure 137 mm[Hg] Dr. Cristian Tate Work Phone: 2(336)190-428605 [place] [address] 12-06-2024 23:19-0400 Body height 187.[address] Cristian Tate Work Phone: 1(601)091-119105 [place] [address] 12-06-2024 23:19-0400 Body mass index (BMI) [Ratio] 43.9 kg/m2 Dr. Cristian Barrera DO Work Phone: 3(568)506-179872 [place] [address] 12-06-2024 23:19-0400 Body weight 155.[address] Cristian Barrera DO Work Phone: 8(942)805-877805 [place] [address] 09-19-2024 22:25-0400 Body temperature 97 [degF] Dr. Cristian Barrera DO Work Phone: 1(348)482-060805 [place] [address] 09-19-2024 22:25-0400 Diastolic blood pressure 93 mm[Hg] Dr. Cristian Barrera DO Work Phone: 8(907)614-395405 [place] [address] 09-19-2024 22:25-0400 Heart rate 99 /min Dr. Cristian Barrera DO Work Phone: 3(215)908-075405 [place] [address] 09-19-2024 22:25-0400 Respiratory rate 16 /min Dr. Cristian Barrera DO Work Phone: 9(220)957-806705 [place] [address] 09-19-2024 22:25-0400 SaO2% (BldA) [Mass fraction] 97 % Dr. Cristian Tate Work Phone: 4(466)806-078605 [place] [address] 09-19-2024 22:25-0400 Systolic blood pressure 136 mm[Hg] Dr. Cristian Tate Work Phone: 4(241)045-065205 [place] [address] 09-19-2024 21:32-0400 Body mass index (BMI) [Ratio] 44.7 kg/m2 Dr. Cristian Tate Work Phone: 3(711)493-336205 [place] [address] 09-19-2024 21:32-0400 Body weight 158.[address] Cristian Tate Work Phone: 1(487)497-750205 [place] [address] 09-19-2024 21:16-0400 Body height 187.[address] Cristian Tate Work Phone: 5(347)680-597872 [place] [address] 08-24-2024 22:40-0400 Body temperature 99.1 [degF] No Primary Care Physician [facility] 08-24-2024 22:40-0400 Diastolic blood pressure 70 mm[Hg] No Primary Care Physician [facility] 08-24-2024 22:40-0400 Heart rate 80 /min No Primary Care Physician [facility] 08-24-2024 22:40-0400 Respiratory rate 16 /min No Primary Care Physician [facility] 08-24-2024 22:40-0400 SaO2% (BldA) [Mass fraction] 100 % No Primary Care Physician [facility] 08-24-2024 22:40-0400 Systolic blood pressure 118 mm[Hg] No Primary Care Physician [facility] 08-24-2024 21:04-0400 Body height 187.96 cm No Primary Care Physician [facility] 08-24-2024 21:04-0400 Body mass index (BMI) [Ratio] 44.1 kg/m2 No Primary Care Physician [facility] 08-24-2024 21:04-0400 Body weight 155.99 kg No Primary Care Physician [facility] 08-13-2024 12:44-0500 Body height 188 cm Stephon Benavides MD Work Phone: [facility] 08-13-2024 12:44-0500 Body mass index (BMI) [Ratio] 43.78 kg/m2 Stephon Benavides MD Work Phone: [facility] 08-13-2024 12:44-0500 Body weight 154.68 kg Stephon Benavides MD Work Phone: [facility] 08-13-2024 12:44-0500 Diastolic blood pressure 95 mm[Hg] Stephon Benavides MD Work Phone: [facility] 08-13-2024 12:44-0500 Heart rate 125 /min Stephon Benavides MD Work Phone: [facility] 08-13-2024 12:44-0500 Respiratory rate 16 /min Stephon Benavides MD Work Phone: [facility] 08-13-2024 12:44-0500 Systolic blood pressure 132 mm[Hg] Stephon Benavides MD Work Phone: [facility] 06-29-2024 14:07-0500 Body height 188 cm Jonathan Gonzalez MD Work Phone: [facility] 06-29-2024 14:07-0500 Body mass index (BMI) [Ratio] 43.65 kg/m2 Jonathan Gonzalez MD Work Phone: [facility] 06-29-2024 14:07-0500 Body temperature 97.81 [degF] Jonathan Gonzalez MD Work Phone: [facility] 06-29-2024 14:07-0500 Body weight 154.22 kg Jonathan Gonzalez MD Work Phone: [facility] 06-29-2024 14:07-0500 Diastolic blood pressure 94 mm[Hg] Jonathan Gonzalez MD Work Phone: [facility] 06-29-2024 14:07-0500 Heart rate 91 /min Jonathan Gonzalez MD Work Phone: [facility] 06-29-2024 14:07-0500 Respiratory rate 18 /min Jonathan Gonzalez MD Work Phone: [facility] 06-29-2024 14:07-0500 SaO2% (BldA) [Mass fraction] 97 % Jonathan Gonzalez MD Work Phone: [facility] 06-29-2024 14:07-0500 Systolic blood pressure 141 mm[Hg] Jonathan Gonzalez MD Work Phone: [facility] 05-16-2024 21:44-0500 Body temperature 98.42 [degF] NIDAL CHOUJAA DO [facility] 05-16-2024 21:44-0500 Diastolic Blood Pressure Non-Invasive 95 mm[Hg] NIDAL CHOUJAA DO [facility] 05-16-2024 21:44-0500 Heart rate 96 /min NIDAL CHOUJAA DO [facility] 05-16-2024 21:44-0500 Respiratory rate 18 /min NIDAL CHOUJAA DO [facility] 05-16-2024 21:44-0500 Systolic Blood Pressure Non-Invasive 141 mm[Hg] NIDAL CHOUJAA DO [facility] 09-16-2023 11:05-0400 Body height 188 cm Pacc 6 Work Phone: [facility] 09-16-2023 11:05-0400 Body temperature 98.49 [degF] Pacc 6 Work Phone: [facility] 09-16-2023 11:05-0400 Body weight 162.8 kg Pacc 6 Work Phone: [facility] 09-16-2023 11:05-0400 Diastolic blood pressure 86 mm[Hg] Pacc 6 Work Phone: [facility] 09-16-2023 11:05-0400 Heart rate 101 /min Pacc 6 Work Phone: [facility] 09-16-2023 11:05-0400 SaO2% (BldA) [Mass fraction] 98 % Pacc 6 Work Phone: [facility] 09-16-2023 11:05-0400 Systolic blood pressure 143 mm[Hg] Pacc 6 Work Phone: [facility] 09-11-2023 18:11-0400 Body temperature 98.06 [degF] DAVONTE Segura [facility] 09-11-2023 18:11-0400 Diastolic Blood Pressure Non-Invasive 77 mm[Hg] DAVONTE ONEILL MD [facility] 09-11-2023 18:11-0400 Heart rate 98 /min DAVONTE Segura [facility] 09-11-2023 18:11-0400 Respiratory rate 20 /min DAVONTE Segura [facility] 09-11-2023 18:11-0400 Systolic Blood Pressure Non-Invasive 151 mm[Hg] DAVONTE ONEILL MD [facility] 08-27-2023 10:45-0400 Diastolic Blood Pressure Non-Invasive 90 mm[Hg] REYES TERESA DO [facility] 08-27-2023 10:45-0400 Heart rate 94 /min REYES TERESA DO [facility] 08-27-2023 10:45-0400 Respiratory rate 20 /min REYES TERESA DO [facility] 08-27-2023 10:45-0400 Systolic Blood Pressure Non-Invasive 123 mm[Hg] REYES TERESA DO [facility] 08-27-2023 10:35-0400 Diastolic Blood Pressure Non-Invasive 90 mm[Hg] REYES TERESA DO [facility] 08-27-2023 10:35-0400 Heart rate 98 /min REYES TERESA DO [facility] 08-27-2023 10:35-0400 Respiratory rate 15 /min REYES TERESA DO [facility] 08-27-2023 10:35-0400 Systolic Blood Pressure Non-Invasive 123 mm[Hg] REYES TERESA DO [facility] 08-27-2023 10:20-0400 Body temperature 97.7 [degF] REYES TERESA DO [facility] 08-27-2023 10:20-0400 Diastolic Blood Pressure Non-Invasive 68 mm[Hg] REYES TERESA DO [facility] 08-27-2023 10:20-0400 Heart rate 88 /min REYES TERESA DO [facility] 08-27-2023 10:20-0400 Respiratory rate 14 /min REYES TERESA DO [facility] 08-27-2023 10:20-0400 Systolic Blood Pressure Non-Invasive 113 mm[Hg] REYES TERESA DO [facility] 08-27-2023 10:15-0400 Heart rate 86 /min REYES TERESA DO [facility] 08-27-2023 10:15-0400 Respiratory Rate - Anes 13 br/min REYES TERESA DO [facility] 08-27-2023 10:10-0400 Heart rate 96 /min REYES TERESA DO [facility] 08-27-2023 10:10-0400 Respiratory Rate - Anes 15 br/min REYES TERESA DO [facility] 08-27-2023 10:05-0400 Heart rate 104 /min REYES TERESA DO [facility] 08-27-2023 10:05-0400 Respiratory Rate - Anes 30 br/min REYES TERESA DO [facility] 08-27-2023 09:46-0400 Body temperature 97.7 [degF] REYES TERESA DO [facility] 08-27-2023 09:40-0400 Body height 184.5 cm REYES MOORE DO [facility] 08-27-2023 09:40-0400 Body temperature 97.7 [degF] REYES MOORE DO [facility] 08-27-2023 09:40-0400 Body weight 143.1 kg REYES MOORE DO [facility] 08-27-2023 09:40-0400 Body weight 42.04 kg/m2 REYES MOORE DO [facility] 08-06-2023 09:01-0500 Body height 188 cm Kelley Meraz BORDER PATROL OFFICER.LEAD TECHNICAL ARCHITECT, DNP Work Phone: [facility] 08-06-2023 09:01-0500 Body weight 158.76 kg Kelley Meraz APRN.LEAD TECHNICAL ARCHITECT, [facility] Work Phone: [facility] 08-06-2023 09:01-0500 Diastolic blood pressure 101 mm[Hg] Kelley Meraz APRN.LEAD TECHNICAL ARCHITECT, DNP Work Phone: [facility] 08-06-2023 09:01-0500 Heart rate 107 /min Kelley Meraz APRN.LEAD TECHNICAL ARCHITECT, DNP Work Phone: [facility] 08-06-2023 09:01-0500 SaO2% (BldA) [Mass fraction] 98 % Kelley Meraz APRN.LEAD TECHNICAL ARCHITECT, DNP Work Phone: [facility] 08-06-2023 09:01-0500 Systolic blood pressure 153 mm[Hg] Kelley Meraz APRN.LEAD TECHNICAL ARCHITECT, DNP Work Phone: [facility] 07-04-2023 00:20-0500 Body temperature 98.1 [degF] No Primary Care Physician [facility] 07-04-2023 00:20-0500 Diastolic blood pressure 89 mm[Hg] No Primary Care Physician [facility] 07-04-2023 00:20-0500 Heart rate 98 /min No Primary Care Physician [facility] 07-04-2023 00:20-0500 Respiratory rate 16 /min No Primary Care Physician [facility] 07-04-2023 00:20-0500 SaO2% (BldA) [Mass fraction] 96 % No Primary Care Physician [facility] 07-04-2023 00:20-0500 Systolic blood pressure 143 mm[Hg] No Primary Care Physician [facility] 07-03-2023 22:57-0500 Body height 187.96 cm No Primary Care Physician [facility] 07-03-2023 22:57-0500 Body mass index (BMI) [Ratio] 45.6 kg/m2 No Primary Care Physician [facility] 07-03-2023 22:57-0500 Body weight 161.28 kg No Primary Care Physician [facility] 06-28-2023 16:27-0500 Diastolic Blood Pressure Non-Invasive 93 mm[Hg] DR LEDY REESE MD [facility] 06-28-2023 16:27-0500 Heart rate 92 /min DR LEDY REESE MD [facility] 06-28-2023 16:27-0500 Respiratory rate 18 /min DR LEDY REESE MD [facility] 06-28-2023 16:27-0500 Systolic Blood Pressure Non-Invasive 133 mm[Hg] DR LEDY REESE MD [facility] 06-28-2023 14:04-0500 Blood Pressure Cuff Size DR LEDY REESE MD [facility] 06-28-2023 14:04-[address] LEDY REESE MD [facility] 06-28-2023 14:04-[address] LEDY REESE MD [facility] 06-28-2023 14:04-0500 Body height [address] LEDY REESE MD [facility] 06-28-2023 14:04-0500 Body temperature 97.7 [degF] DR LEDY REESE MD [facility] 06-28-2023 14:04-0500 Body weight 136.[address] LEDY REESE MD [facility] 06-28-2023 14:04-0500 Diastolic Blood Pressure Non-Invasive 89 mm[Hg] DR LEDY REESE MD [facility] 06-28-2023 14:04-0500 Heart rate 108 /min DR LEDY REESE MD [facility] 06-28-2023 14:04-0500 Respiratory rate 22 /min DR LEDY REESE MD [facility] 06-28-2023 14:04-0500 Systolic Blood Pressure Non-Invasive 141 mm[Hg] DR LEDY REESE MD [facility] 06-12-2023 09:46-0500 Body mass index (BMI) [Ratio] 44.5 kg/m2 No Primary Care Physician [facility] 06-12-2023 09:46-0500 Body temperature 97.1 [degF] No Primary Care Physician [facility] 06-12-2023 09:46-0500 Body weight 157.39 kg No Primary Care Physician [facility] 06-12-2023 09:46-0500 Diastolic blood pressure 91 mm[Hg] No Primary Care Physician [facility] 06-12-2023 09:46-0500 Heart rate 79 /min No Primary Care Physician [facility] 06-12-2023 09:46-0500 Respiratory rate 18 /min No Primary Care Physician [facility] 06-12-2023 09:46-0500 SaO2% (BldA) [Mass fraction] 100 % No Primary Care Physician [facility] 06-12-2023 09:46-0500 Systolic blood pressure 130 mm[Hg] No Primary Care Physician [facility] 06-08-2023 19:34-0500 Diastolic Blood Pressure Non-Invasive 85 mm[Hg] DR PAUL DOBSON DO [facility] 06-08-2023 19:34-0500 Heart rate 87 /min DR PAUL DOBSON DO [facility] 06-08-2023 19:34-0500 Respiratory rate 18 /min DR PAUL DOBSON DO [facility] 06-08-2023 19:34-0500 Systolic Blood Pressure Non-Invasive 146 mm[Hg] DR PAUL DOBSON DO [facility] 06-08-2023 17:51-0500 Blood Pressure Cuff Size DR PAUL DOBSON DO [facility] 06-08-2023 17:51-[address] PAUL DOBSON DO [facility] 06-08-2023 17:51-[address] PAUL DOBSON DO [facility] 06-08-2023 17:51-0500 Body temperature 98.78 [degF] DR PAUL DOBSON DO [facility] 06-08-2023 17:51-0500 Diastolic Blood Pressure Non-Invasive 80 mm[Hg] DR PAUL DOBSON DO [facility] 06-08-2023 17:51-0500 Heart rate 96 /min DR PAUL DOBSON DO [facility] 06-08-2023 17:51-0500 Respiratory rate 18 /min DR PAUL DOBSON DO [facility] 06-08-2023 17:51-0500 Systolic Blood Pressure Non-Invasive 113 mm[Hg] DR PAUL DOBSON DO [facility] 06-01-2023 01:12-0500 Body height 185.42 cm [facility] 06-01-2023 01:12-0500 Body mass index (BMI) [Ratio] 46.3 kg/m2 [facility] 06-01-2023 01:12-0500 Body temperature 98.4 [degF] [facility] 06-01-2023 01:12-0500 Body weight 159.4 kg [facility] 06-01-2023 01:12-0500 Diastolic blood pressure 96 mm[Hg] [facility] 06-01-2023 01:12-0500 Heart rate 96 /min [facility] 06-01-2023 01:12-0500 Respiratory rate 20 /min [facility] 06-01-2023 01:12-0500 SaO2% (BldA) [Mass fraction] 99 % [facility] 06-01-2023 01:12-0500 Systolic blood pressure 157 mm[Hg] [facility] 05-16-2023 22:40-0500 Diastolic Blood Pressure Non-Invasive 80 mm[Hg] TOI REICHFIELD DO [facility] 05-16-2023 22:40-0500 Heart rate 94 /min TOI REICHFIELD DO [facility] 05-16-2023 22:40-0500 Respiratory rate 18 /min [facility] 05-16-2023 22:40-0500 Systolic Blood Pressure Non-Invasive 132 mm[Hg] TOI REICHFIELD DO [facility] 05-16-2023 21:30-0500 Heart rate 98 /min TOI REICHFIELD DO [facility] 05-16-2023 21:30-0500 Respiratory rate 16 /min TOI REICHFIELD DO [facility] 05-16-2023 21:20-0500 Reason For Taking VItal Signs TOI REICHFIELD DO [facility] 05-16-2023 20:06-0500 Body height 188 cm TOI REICHFIELD DO [facility] 05-16-2023 20:06-0500 Body temperature 98.42 [degF] TOI REICHFIELD DO [facility] 05-16-2023 20:06-0500 Body weight 134.1 kg TOI REICHFIELD DO [facility] 05-16-2023 20:06-0500 Diastolic Blood Pressure Non-Invasive 85 mm[Hg] TOI REICHFIELD DO [facility] 05-16-2023 20:06-0500 Heart rate 98 /min TOI REICHFIELD DO [facility] 05-16-2023 20:06-0500 Respiratory rate 18 /min TOI REICHFIELD DO [facility] 05-16-2023 20:06-0500 Systolic Blood Pressure Non-Invasive 138 mm[Hg] TOI REICHFIELD DO [facility] 02-12-2023 20:36-0400 Diastolic Blood Pressure Non-Invasive 90 1 TOI REICHFIELD DO [facility] 02-12-2023 20:36-0400 Heart rate 77 /min TOI REICHFIELD DO [facility] 02-12-2023 20:36-0400 Reason For Taking VItal Signs TOI REICHFIELD DO [facility] 02-12-2023 20:36-0400 Respiratory rate 20 /min TOI REICHFIELD DO [facility] 02-12-2023 20:36-0400 Systolic Blood Pressure Non-Invasive 130 1 TOI REICHFIELD DO [facility] 02-12-2023 19:10-0400 Diastolic Blood Pressure Non-Invasive 92 1 TOI REICHFIELD DO [facility] 02-12-2023 19:10-0400 Heart rate 75 /min TOI REICHFIELD DO [facility] 02-12-2023 19:10-0400 Reason For Taking VItal Signs TOI REICHFIELD DO [facility] 02-12-2023 19:10-0400 Respiratory rate 18 /min TOI REICHFIELD DO [facility] 02-12-2023 19:10-0400 Systolic Blood Pressure Non-Invasive 129 1 TOI REICHFIELD DO [facility] 02-12-2023 18:15-0400 Diastolic Blood Pressure Non-Invasive 88 1 TOI REICHFIELD DO [facility] 02-12-2023 18:15-0400 Heart rate 88 /min TOI REICHFIELD DO [facility] 02-12-2023 18:15-0400 Reason For Taking VItal Signs TOI REICHFIELD DO [facility] 02-12-2023 18:15-0400 Respiratory rate 20 /min TOI RELETICIAFIELD DO [facility] 02-12-2023 18:15-0400 Systolic Blood Pressure Non-Invasive 137 1 [facility] 02-12-2023 17:24-0400 Body temperature 98.24 [degF] [facility] 02-12-2023 17:24-0400 Body weight 149.9 kg [facility] 02-12-2023 17:24-0400 Heart rate 100 /min [facility]IN [facility] 10-28-2022 11:57-0400 Blood Pressure Cuff Size ROSHNI SCHWARZENTRAUB PA-C [facility] 10-28-2022 11:57-0400 Blood Pressure Location ROSHNI SCHWARZENTRAUB PA-C [facility] 10-28-2022 11:57-0400 Blood Pressure Method ROSHNI SCHWARZENTRAUB PA-C [facility] 10-28-2022 11:57-0400 Body height 188 cm ROSHNI SCHWARZENTRA UB PA-C [facility] 10-28-2022 11:57-0400 Body temperature 97.88 [degF] ROSHNI SCHWARZENTRA UB PA-C [facility] 10-28-2022 11:57-0400 Body weight 134.1 kg ROSHNI SCHWARZENTRA UB PA-C [facility] 10-28-2022 11:57-0400 Body weight 37.94 kg/m2 ROSHNI CRISTIANEARCellControl UB PA-C [facility] 10-28-2022 11:57-0400 Diastolic Blood Pressure Non-Invasive 87 1 ROSHNI SAUERARZENTRAUB PA-C [facility] 10-28-2022 11:57-0400 Heart rate 111 /min [place] CRISTIANEARCellControl UB PA-C [facility] 10-28-2022 11:57-0400 Respiratory rate 18 /min [place] CRISTIANEARCellControl UB PA-C [facility] 10-28-2022 11:57-0400 Systolic Blood Pressure Non-Invasive 132 1 ROSHNI CRISTIANEARAeroSat CorporationTRAUB PA-C [facility] 10-28-2022 01:45-0400 Body temperature 98.96 [degF] YARA HENSON MD [facility] 10-28-2022 01:45-0400 Diastolic Blood Pressure Non-Invasive 96 1 YARA HENSON MD [facility] 10-28-2022 01:45-0400 Heart rate 98 /min YARA HENSON MD [facility] 10-28-2022 01:45-0400 Respiratory rate 20 /min YARA HENSON MD [facility] 10-28-2022 01:45-0400 Systolic Blood Pressure Non-Invasive 143 1 YARA HENSON MD [facility] 10-21-2022 08:44-0400 Blood Pressure Cuff Size AVANI CANTOR APRN-LEAD TECHNICAL ARCHITECT [facility] 10-21-2022 08:44-0400 Blood Pressure Location AVANI CANTOR BORDER PATROL OFFICER-LEAD TECHNICAL ARCHITECT [facility] 10-21-2022 08:44-0400 Blood Pressure Method AVANI CANTOR BORDER PATROL OFFICER-LEAD TECHNICAL ARCHITECT [facility] 10-21-2022 08:44-0400 Body height 188 cm AVANI CANTOR BORDER PATROL OFFICER-LEAD TECHNICAL ARCHITECT [facility] 10-21-2022 08:44-0400 Body temperature 98.42 [degF] AVANI CANTOR BORDER PATROL OFFICER-LEAD TECHNICAL ARCHITECT [facility] 10-21-2022 08:44-0400 Body weight 134.1 kg AVANI CANTOR BORDER PATROL OFFICER-LEAD TECHNICAL ARCHITECT [facility] 10-21-2022 08:44-0400 Body weight 37.94 kg/m2 AVANI CANTOR BORDER PATROL OFFICER-LEAD TECHNICAL ARCHITECT [facility] 10-21-2022 08:44-0400 Diastolic Blood Pressure Non-Invasive 93 1 AVANI CANTOR BORDER PATROL OFFICER-LEAD TECHNICAL ARCHITECT [facility] 10-21-2022 08:44-0400 Heart rate 88 /min AVANI CANTOR APRN-LEAD TECHNICAL ARCHITECT [facility] 10-21-2022 08:44-0400 Respiratory rate 18 /min AVANI CANTOR BORDER PATROL OFFICER-LEAD TECHNICAL ARCHITECT [facility] 10-21-2022 08:44-0400 Systolic Blood Pressure Non-Invasive 152 1 AVANI CANTOR BORDER PATROL OFFICER-LEAD TECHNICAL ARCHITECT [facility] 09-12-2022 13:08-0400 Body height 188 cm PPT [employer] UB PA-C [facility] 09-12-2022 13:08-0400 Body temperature 98.06 [degF] [employer] UB PA-C [facility] 09-12-2022 13:08-0400 Body weight 131.8 kg [employer]AR[employer] UB PA-C [facility] 09-12-2022 13:08-0400 Body weight 37.29 kg/m2 ROSHNI [address] [employer] UB PA-C [facility] 09-12-2022 13:08-0400 Diastolic Blood Pressure Non-Invasive 95 1 ROSHNI SCHWARZENPixiflyUB PA-C [facility] 09-12-2022 13:08-0400 Heart rate 90 /min [place] [employer]AR[employer] UB PA-C [facility] 09-12-2022 13:08-0400 Respiratory rate 18 /min [place] [address] [facility]B PA-C [facility] 09-12-2022 13:08-0400 Systolic Blood Pressure Non-Invasive [address] StarkUB PA-C [facility] 09-05-2022 10:00-0400 Blood Pressure Cuff Size AVANI BATERS BORDER PATROL OFFICER-LEAD TECHNICAL ARCHITECT [facility] 09-05-2022 10:00-0400 Blood Pressure Location AVANI BATERS BORDER PATROL OFFICER-LEAD TECHNICAL ARCHITECT [facility] 09-05-2022 10:00-0400 Blood Pressure Method AVANI BATERS BORDER PATROL OFFICER-LEAD TECHNICAL ARCHITECT [facility] 09-05-2022 10:00-0400 Body height 188 cm AVANI BATERS BORDER PATROL OFFICER-LEAD TECHNICAL ARCHITECT [facility] 09-05-2022 10:00-0400 Body temperature 98.6 [degF] AVANI BATERS BORDER PATROL OFFICER-LEAD TECHNICAL ARCHITECT [facility] 09-05-2022 10:00-0400 Body weight 135 kg AVANI BATERS BORDER PATROL OFFICER-LEAD TECHNICAL ARCHITECT [facility] 09-05-2022 10:00-0400 Body weight 38.2 kg/m2 AVANI BATERS BORDER PATROL OFFICER-LEAD TECHNICAL ARCHITECT [facility] 09-05-2022 10:00-0400 Diastolic Blood Pressure Non-Invasive 91 1 AVANI CANTOR BORDER PATROL OFFICER-LEAD TECHNICAL ARCHITECT [facility] 09-05-2022 10:00-0400 Heart rate 88 /min AVANI CANTOR BORDER PATROL OFFICER-LEAD TECHNICAL ARCHITECT [facility] 09-05-2022 10:00-0400 Respiratory rate 18 /min AVANI CANTOR BORDER PATROL OFFICER-LEAD TECHNICAL ARCHITECT [facility] 09-05-2022 10:00-0400 Systolic Blood Pressure Non-Invasive 119 1 AVANI CANTOR BORDER PATROL OFFICER-LEAD TECHNICAL ARCHITECT [facility] 08-28-2022 21:45-0400 Diastolic Blood Pressure Non-Invasive 84 1 ANJEL FRIAST [employer] [facility] 08-28-2022 21:45-0400 Heart rate 86 /min ANJEL FRIAST DO [facility] 08-28-2022 21:45-0400 Respiratory rate 18 /min ANJEL FRIAST DO [facility] 08-28-2022 21:45-0400 Systolic Blood Pressure Non-Invasive 136 1 ANJEL FRIAST DO [facility] 08-28-2022 19:06-0400 Body temperature 97.88 [degF] ANJEL FRIAST DO [facility] 08-28-2022 19:06-0400 Body weight 136.4 kg ANJEL FRIAST DO [facility] 08-28-2022 19:06-0400 Diastolic Blood Pressure Non-Invasive 84 1 ANJEL FRIAST DO [facility] 08-28-2022 19:06-0400 Heart rate 100 /min ANJEL FRIAST DO [facility] 08-28-2022 19:06-0400 Respiratory rate 20 /min ANJEL [employer] [facility] 08-28-2022 19:06-0400 Systolic Blood Pressure Non-Invasive 141 1 ANJEL [employer] [facility] 08-18-2022 15:50-0500 Diastolic Blood Pressure Non-Invasive 80 1 ANJEL [employer] [facility] 08-18-2022 15:50-0500 Heart rate 81 /min ANJEL [employer] [facility] 08-18-2022 15:50-0500 Reason For Taking VItal Signs ANJEL [employer] [facility] 08-18-2022 15:50-0500 Respiratory rate 16 /min ANJEL [employer] [facility] 08-18-2022 15:50-0500 Systolic Blood Pressure Non-Invasive 142 1 ANJEL [employer] [facility] 08-18-2022 14:01-0500 Diastolic Blood Pressure Non-Invasive 89 1 ANJEL [employer] [facility] 08-18-2022 14:01-0500 Systolic Blood Pressure Non-Invasive 142 1 ANJEL [employer] [facility] 08-18-2022 13:55-0500 Body temperature 97.88 [degF] ANJEL [employer] [facility] 08-18-2022 13:55-0500 Diastolic Blood Pressure Non-Invasive 86 1 ANJEL [employer] [facility] 08-18-2022 13:55-0500 Heart rate 87 /min ANJEL [employer] [facility] 08-18-2022 13:55-0500 Respiratory rate 12 /min ANJEL [employer] [facility] 08-18-2022 13:55-0500 Systolic Blood Pressure Non-Invasive 161 1 ANJEL PEÑA DO [facility] 08-18-2022 11:32-0500 Body temperature 98.42 [degF] ANJEL PEÑA DO [facility] 08-18-2022 11:32-0500 Body weight 153.5 kg ANJEL PEÑA DO [facility] 08-18-2022 11:32-0500 Heart rate 96 /min [facility] 08-18-2022 11:32-0500 Respiratory rate 18 /min [facility]EL [facility] 07-22-2022 13:54-0500 Diastolic Blood Pressure Non-Invasive 83 1 BLANCO SHAW MD [facility] 07-22-2022 13:54-0500 Heart rate 86 /min BLANCO SHAW MD [facility] 07-22-2022 13:54-0500 Respiratory rate 16 /min BLANCO SHAW MD [facility] 07-22-2022 13:54-0500 Systolic Blood Pressure Non-Invasive 135 1 BLANCO SHAW MD [facility] 07-22-2022 12:30-0500 Diastolic Blood Pressure Non-Invasive 89 1 BLANCO SHAW MD [facility] 07-22-2022 12:30-0500 Heart rate 91 /min BLANCO SHAW MD [facility] 07-22-2022 12:30-0500 Respiratory rate 16 /min BLANCO SHAW MD [facility] 07-22-2022 12:30-0500 Systolic Blood Pressure Non-Invasive 136 1 BLANCO SHAW MD [facility] 07-22-2022 11:30-0500 Diastolic Blood Pressure Non-Invasive 84 1 BLANCO SHAW MD [facility] 07-22-2022 11:30-0500 Heart rate 100 /min BLANCO SHAW MD [facility] 07-22-2022 11:30-0500 Respiratory rate 20 /min BLANCO SHAW MD [facility] 07-22-2022 11:30-0500 Systolic Blood Pressure Non-Invasive 142 1 BLANCO SHAW MD [facility] 07-22-2022 10:12-0500 Body height 188 cm BLANCO SHAW MD [facility] 07-22-2022 10:12-0500 Body temperature 98.96 [degF] BLANCO SHAW MD [facility] 07-22-2022 10:12-0500 Body weight 132 kg BLANCO SHAW MD [facility] 07-18-2022 14:20-0500 Diastolic Blood Pressure Non-Invasive 95 1 AARON DUQUE MD [facility] 07-18-2022 14:20-0500 Heart rate 99 /min AARON DUQUE MD [facility] 07-18-2022 14:20-0500 Respiratory rate 16 /min AARON DUQUE MD [facility] 07-18-2022 14:20-0500 Systolic Blood Pressure Non-Invasive 130 1 AARON DUQUE MD [facility] 07-18-2022 13:50-0500 Diastolic Blood Pressure Non-Invasive 88 1 AARON DUQUE MD [facility] 07-18-2022 13:50-0500 Heart rate 105 /min AARON DUQUE MD [facility] 07-18-2022 13:50-0500 Respiratory rate 16 /min AARON DUQUE MD [facility] 07-18-2022 13:50-0500 Systolic Blood Pressure Non-Invasive 137 1 AARON DUQUE MD [facility] 07-18-2022 13:20-0500 Diastolic Blood Pressure Non-Invasive 77 1 AARON DUQUE MD [facility] 07-18-2022 13:20-0500 Heart rate 104 /min AARON DUQUE MD [facility] 07-18-2022 13:20-0500 Respiratory rate 16 /min AARON DUQUE MD [facility] 07-18-2022 13:20-0500 Systolic Blood Pressure Non-Invasive 144 1 AARON DUQUE MD [facility] 07-18-2022 13:15-0500 Heart rate 99 /min AARON DUQUE MD [facility] 07-18-2022 13:00-0500 Heart rate 102 /min AARON DUQUE MD [facility] 07-18-2022 11:28-0500 Body temperature 97.88 [degF] AARON DUQUE MD [facility] 07-18-2022 11:25-0500 Respiratory Rate - Anes 0 br/min AARON DUQUE MD [facility] 07-18-2022 11:20-0500 Respiratory Rate - Anes 0 br/min AARON DUQUE MD [facility] 07-18-2022 11:15-0500 Respiratory Rate - Anes 10 br/min AARON DUQUE MD [facility] 07-18-2022 06:48-0500 Body height 188 cm AARNO DUQUE MD [facility] 07-18-2022 06:48-0500 Body temperature 98.96 [degF] AARON DUQUE MD [facility] 07-18-2022 06:48-0500 Body weight 134 kg AARON DUQUE MD [facility] 07-18-2022 06:48-0500 Heart rate 99 /min AARON DUQUE MD [facility] 07-15-2022 01:50-0500 Diastolic Blood Pressure Non-Invasive 79 1 DAVONTE ONEILL MD [facility] 07-15-2022 01:50-0500 Heart rate 93 /min DAVONTE Segura [facility] 07-15-2022 01:50-0500 Respiratory rate 15 /min DAVONTE Segura [facility] 07-15-2022 01:50-0500 Systolic Blood Pressure Non-Invasive 124 1 DAVONTE ONEILL MD [facility] 07-15-2022 00:30-0500 Body temperature 97.88 [degF] DAVONTE Segura [facility] 07-15-2022 00:30-0500 Diastolic Blood Pressure Non-Invasive 91 1 DAVONTE ONEILL MD [facility] 07-15-2022 00:30-0500 Heart rate 101 /min DAVONTE Segura [facility] 07-15-2022 00:30-0500 Respiratory rate 18 /min DAVONTE Beaver D [facility] 07-15-2022 00:30-0500 Systolic Blood Pressure Non-Invasive 152 1 DAVONTE ONEILL MD [facility] 07-09-2022 13:12-0500 Blood Pressure Cuff Size AARON DUQUE MD [facility] 07-09-2022 13:12-0500 Blood Pressure Location AARON DUQUE MD [facility] 07-09-2022 13:12-0500 Blood Pressure Method AARON DUQUE MD [facility] 07-09-2022 13:12-0500 Body height 188 cm AARON DUQUE MD [facility] 07-09-2022 13:12-0500 Body weight 134.1 kg AARON DUQUE MD [facility] 07-09-2022 13:12-0500 Body weight 37.94 kg/m2 AARON DUQUE MD [facility] 07-09-2022 13:12-0500 Diastolic Blood Pressure Non-Invasive 82 1 AARON DUQUE MD [facility] 07-09-2022 13:12-0500 Heart rate 91 /min AARON DUQUE MD [facility] 07-09-2022 13:12-0500 Systolic Blood Pressure Non-Invasive 122 1 AARON DUQUE MD [facility] 06-27-2022 23:59-0500 Diastolic Blood Pressure Non-Invasive 75 1 YARA HENSON MD [facility] 06-27-2022 23:59-0500 Heart rate 85 /min YARA HENSON MD [facility] 06-27-2022 23:59-0500 Reason For Taking VItal Signs YARA HENSON MD [facility] 06-27-2022 23:59-0500 Respiratory rate 18 /min YARA HENSON MD [facility] 06-27-2022 23:59-0500 Systolic Blood Pressure Non-Invasive 130 1 YARA HENSON MD [facility] 06-27-2022 21:38-0500 Body temperature 97.52 [degF] YARA HENSON MD [facility] 06-27-2022 21:38-0500 Diastolic Blood Pressure Non-Invasive 100 1 YARA HENSON MD [facility] 06-27-2022 21:38-0500 Heart rate 105 /min YARA HENSON MD [facility] 06-27-2022 21:38-0500 Respiratory rate 24 /min YARA HENSON MD [facility] 06-27-2022 21:38-0500 Systolic Blood Pressure Non-Invasive 157 1 YARA HENSON MD [facility] 06-19-2022 19:36-0500 Body temperature 99.1 [degF] [facility] 06-19-2022 19:36-0500 Diastolic blood pressure 87 mm[Hg] [facility] 06-19-2022 19:36-0500 Heart rate 110 /min [facility] 06-19-2022 19:36-0500 Respiratory rate 18 /min [facility] 06-19-2022 19:36-0500 SaO2% (BldA) [Mass fraction] 96 % [facility] 06-19-2022 19:36-0500 Systolic blood pressure 126 mm[Hg] [facility] 06-01-2022 00:00-0500 Diastolic Blood Pressure Non-Invasive 88 1 YARA HENSON MD [facility] 06-01-2022 00:00-0500 Heart rate 85 /min YARA HENSON MD [facility] 06-01-2022 00:00-0500 Respiratory rate 16 /min YARA HENSON MD [facility] 06-01-2022 00:00-0500 Systolic Blood Pressure Non-Invasive 125 1 YARA HENSON MD [facility] 05-31-2022 21:41-0500 Body height 190.5 cm YARA HENSON MD [facility] 05-31-2022 21:41-0500 Body temperature 97.88 [degF] YARA HENSON MD [facility] 05-31-2022 21:41-0500 Body weight 127.3 kg YARA HENSON MD [facility] 05-31-2022 21:41-0500 Diastolic Blood Pressure Non-Invasive 89 1 YARA HENSON MD [facility] 05-31-2022 21:41-0500 Heart rate 90 /min YARA HENSON MD [facility] 05-31-2022 21:41-0500 Respiratory rate 18 /min YARA HENSON MD [facility] 05-31-2022 21:41-0500 Systolic Blood Pressure Non-Invasive 127 1 YARA HENSON MD [facility] 05-27-2022 18:03-0500 Body height 180.[address] ABDI AGUIRRE MD [facility] 05-27-2022 18:03-0500 Body temperature 98.96 [degF] DR ABDI AGUIRRE MD [facility] 05-27-2022 18:03-0500 Body weight 127.[address] ABDI AGUIRRE MD [facility] 05-27-2022 18:03-0500 Diastolic Blood Pressure Non-Invasive [address] ABDI AGUIRRE MD [facility] 05-27-2022 18:03-0500 Heart rate 118 /min DR ABDI AGUIRRE MD [facility] 05-27-2022 18:03-0500 Respiratory rate 20 /min DR ABDI AGUIRRE MD [facility] 05-27-2022 18:03-0500 Systolic Blood Pressure Non-Invasive [address] ABDI AGUIRRE MD [facility] 04-25-2022 17:56-0500 Diastolic blood pressure 98 mm[Hg] [facility] 04-25-2022 17:56-0500 Heart rate 90 /min [facility] [employer] 04-25-2022 17:56-0500 Respiratory rate 18 /min [facility] [employer] 04-25-2022 17:56-0500 SaO2% (BldA) [Mass fraction] 100 % [facility] [employer] 04-25-2022 17:56-0500 Systolic blood pressure 156 mm[Hg] [facility] [employer] 04-25-2022 15:04-0500 Body height 188 cm [facility] [employer] 04-25-2022 15:04-0500 Body mass index (BMI) [Ratio] 34.67 kg/m2 [facility] [employer] 04-25-2022 15:04-0500 Body temperature 97.11 [degF] [facility] [employer] 04-25-2022 15:04-0500 Body weight 122.47 kg [facility] [employer] 04-03-2022 14:31-0400 Diastolic blood pressure 90 mm[Hg] Pcp No [facility] 04-03-2022 14:31-0400 Heart rate 100 /min Pcp No [facility] [employer] 04-03-2022 14:31-0400 Respiratory rate 16 /min Pcp No [facility] [employer] 04-03-2022 14:31-0400 SaO2% (BldA) [Mass fraction] 100 % Pcp No [facility] [employer] 04-03-2022 14:31-0400 Systolic blood pressure 140 mm[Hg] Pcp No [facility] [employer] 04-03-2022 14:14-0400 Body temperature 98.2 [degF] Pcp No [facility] 03-15-2022 00:52-0400 Diastolic blood pressure 75 mm[Hg] JORGITO CANNON DO [facility] 03-15-2022 00:52-0400 Heart rate 97 /min JORGITO CANNON DO [facility] 03-15-2022 00:52-0400 Respiratory rate 16 /min JORGITO CANNON DO [facility] 03-15-2022 00:52-0400 Systolic blood pressure 121 mm[Hg] JORGITO CANNON DO [facility] 03-14-2022 22:56-0400 Body temperature 98.24 [degF] JORGITO CANNON DO [facility] 03-14-2022 22:56-0400 Diastolic blood pressure 81 mm[Hg] JORGITO CANNON DO [facility] 03-14-2022 22:56-0400 Heart rate 107 /min JORGITO CANNON DO [facility] 03-14-2022 22:56-0400 Respiratory rate 18 /min JORGITO CANNON DO [facility] 03-14-2022 22:56-0400 Systolic blood pressure 119 mm[Hg] JORGITO CANNON DO [facility] 03-08-2022 00:57-0400 Body temperature 98.29 [degF] Giles Darrion DO Work Phone: [facility] 03-08-2022 00:57-0400 Diastolic blood pressure 89 mm[Hg] Giles Darrion DO Work Phone: [facility] 03-08-2022 00:57-0400 Heart rate 100 /min Giles Darrion DO Work Phone: [facility] 03-08-2022 00:57-0400 Respiratory rate 18 /min Giles Darrion DO Work Phone: [facility] 03-08-2022 00:57-0400 SaO2% (BldA) [Mass fraction] 98 % Giles Darrion DO Work Phone: [facility] 03-08-2022 00:57-0400 Systolic blood pressure 134 mm[Hg] Giles Darrion DO Work Phone: [facility] 01-03-2022 09:42-0400 Body height 185.4 cm Ibrahima Schaefer MD Work Phone: [facility] 01-03-2022 09:42-0400 Body temperature 98.29 [degF] Ibrahima Schaefer MD Work Phone: [facility] 01-03-2022 09:42-0400 Body weight 144.7 kg Ibrahima Schaefer MD Work Phone: [facility] 01-03-2022 09:42-0400 Diastolic blood pressure 76 mm[Hg] Ibrahima Schaefer MD Work Phone: [facility] 01-03-2022 09:42-0400 Heart rate 102 /min Ibrahima Schaefer MD Work Phone: [facility] 01-03-2022 09:42-0400 Respiratory rate 18 /min Ibrahima Schaefer MD Work Phone: [facility] 01-03-2022 09:42-0400 SaO2% (BldA) [Mass fraction] 97 % Ibrahima Schaefer MD Work Phone: [facility] 01-03-2022 09:42-0400 Systolic blood pressure 124 mm[Hg] Ibrahima Schaefer MD Work Phone: [facility] 01-01-2022 20:51-0400 Diastolic blood pressure 86 mm[Hg] [facility] Work Phone: 01-01-2022 20:51-0400 Heart rate 83 /min [facility] Work Phone: 01-01-2022 20:51-0400 Respiratory rate 18 /min [facility] Work Phone: 01-01-2022 20:51-0400 SaO2% (BldA) [Mass fraction] 100 % [facility] Work Phone: 01-01-2022 20:51-0400 Systolic blood pressure 133 mm[Hg] [facility] Work Phone: 01-01-2022 17:58-0400 Body height 185.42 cm [facility] Work Phone: 01-01-2022 17:58-0400 Body mass index (BMI) [Ratio] 42.1 kg/m2 [facility] Work Phone: 01-01-2022 17:58-0400 Body temperature 98.1 [degF] [facility] Work Phone: 01-01-2022 17:58-0400 Body weight 145 kg [facility] Work Phone: 12-21-2021 22:34-0400 Diastolic blood pressure 83 mm[Hg] ANJEL FROMMELT DO [facility] 12-21-2021 22:34-0400 Heart rate 77 /min ANJEL FROMMELT DO [facility] 12-21-2021 22:34-0400 Reason For Taking VItal Signs ANJEL FROMMELT DO [facility] 12-21-2021 22:34-0400 Respiratory rate 20 /min ANJEL FROMMELT DO [facility] 12-21-2021 22:34-0400 Systolic blood pressure 138 mm[Hg] ANJEL FROMMELT DO [facility] 12-21-2021 21:27-0400 Diastolic blood pressure 93 mm[Hg] ANJEL FROMMELT DO [facility] 12-21-2021 21:27-0400 Heart rate 87 /min ANJEL FROMMELT DO [facility] 12-21-2021 21:27-0400 Reason For Taking VItal Signs ANJEL FROMMELT DO [facility] 12-21-2021 21:27-0400 Respiratory rate 20 /min ANJEL FROMMELT DO [facility] 12-21-2021 21:27-0400 Systolic blood pressure 144 mm[Hg] ANJEL PEÑA DO [facility] 12-21-2021 20:43-0400 Body temperature 99.14 [degF] ANJEL PEÑA DO [facility] 12-21-2021 20:43-0400 Diastolic blood pressure 89 mm[Hg] ANJEL PEÑA DO [facility] 12-21-2021 20:43-0400 Heart rate 96 /min ANJEL PEÑA DO [facility] 12-21-2021 20:43-0400 Respiratory rate 22 /min ANJEL PEÑA DO [facility] 12-21-2021 20:43-0400 Systolic blood pressure 172 mm[Hg] ANJEL PEÑA DO [facility] 11-30-2021 20:30-0400 Diastolic blood pressure 82 mm[Hg] YARA HENSON MD [facility] 11-30-2021 20:30-0400 Heart rate 78 /min YARA HENSON MD [facility] 11-30-2021 20:30-0400 Mean blood pressure 101 mm[Hg] YARA HENSON MD [facility] 11-30-2021 20:30-0400 Respiratory rate 18 /min YARA HENSON MD [facility] 11-30-2021 20:30-0400 Systolic blood pressure 140 mm[Hg] YARA HENSON MD [facility] 11-30-2021 19:12-0400 Body temperature 98.06 [degF] YARA HENSON MD [facility] 11-30-2021 19:12-0400 Diastolic blood pressure 89 mm[Hg] YARA HENSON MD [facility] 11-30-2021 19:12-0400 Heart rate 87 /min YARA HENSON MD [facility] 11-30-2021 19:12-0400 Respiratory rate 18 /min YARA HENSON MD [facility] 11-30-2021 19:12-0400 Systolic blood pressure 148 mm[Hg] YARA HENSON MD [facility] 11-14-2021 13:10-0400 Body height 185.4 cm AARON DUQUE MD [facility] 11-14-2021 13:10-0400 Body weight 140.9 kg AARON DUQUE MD [facility] 11-14-2021 13:10-0400 Body weight 40.99 kg/m2 AARON DUQUE MD [facility] 11-14-2021 13:10-0400 diastolic 74 mm[Hg] AARON DUQUE MD [facility] 11-14-2021 13:10-0400 Heart rate 103 /min AARON DUQUE MD [facility] 11-14-2021 13:10-0400 systolic 128 mm[Hg] AARON DUQUE MD [facility] 10-06-2021 14:52-0400 Body temperature 98.96 [degF] ASHLYN BLISS MD [facility] 10-06-2021 14:52-0400 Diastolic blood pressure 89 mm[Hg] ASHLYN BLISS MD [facility] 10-06-2021 14:52-0400 Heart rate 112 /min ASHLYN BLISS MD [facility] 10-06-2021 14:52-0400 Respiratory rate 18 /min ASHLYN BLISS MD [facility] 10-06-2021 14:52-0400 Systolic blood pressure 148 mm[Hg] ASHLYN BLISS MD [facility] Encounters Encounter Date Encounter Type Care Provider Facility Start: 12-29-2024 End: 12-29-2024 Emergency department patient visit Viola REYES Work Phone: -Emergency Department Work Phone: Start: 12-08-2024 End: 12-09-2024 Emergency department patient visit Dr. Cristian Tate Work Phone: -Emergency Department Work Phone: Start: 12-06-2024 End: 12-07-2024 Emergency department patient visit Dr. Cristian Barrera DO Work Phone: -Emergency Department Work Phone: Start: 09-19-2024 End: 09-19-2024 Emergency department patient visit Dr. Cristian Barrera DO Work Phone: -Emergency Department Work Phone: Start: 09-08-2024 End: 09-08-2024 ambulatory VIOLA STARKEY BORDER PATROL OFFICER-LEAD TECHNICAL ARCHITECT Facility:[facility] Start: 09-07-2024 End: 09-08-2024 Emergency department patient visit SHANIKA TIRADO Facility:[facility] Start: 08-24-2024 End: 08-24-2024 Emergency department patient visit No Primary Care Physician -Emergency Department Work Phone: Start: 08-13-2024 End: 08-13-2024 Office outpatient new 45 minutes Stephon Benavides MD Work Phone: [facility] Comment on above: History of abdominal hernia Start: 06-29-2024 End: 06-29-2024 Subsequent hospital visit by physician Rad External Film EF RAD EXTERNAL [facility]M [facility]UAL Comment on above: Arrived Start: 06-29-2024 End: 06-29-2024 Office outpatient new 45 minutes Jonathan Gonzalez MD Work Phone: [facility] Comment on above: Periumbilical abdomi nal pain (Primary Dx); History of abdominal hernia Start: 05-16-2024 End: 05-16-2024 Emergency department patient visit RADHA YI DO [facility] Start: 02-24-2024 End: 02-25-2024 Emergency department patient visit No Primary Care Physician Facility:[facility] Start: 10-10-2023 Telephone encounter Juliocesar Borrero MD, PhD Work Phone: [facility] [place] Comment on above: Care Coordination Left lateral abdomin al pain (Primary Dx) Start: 10-07-2023 End: 10-07-2023 Evaluation and management of inpatient JESE RICHARDSON Facility:[facility] Start: 10-07-2023 Orders Only Jese Richardson MD Work Phone: General Surgery Comment on above: Left lower quadrant abdominal pain (Primary Dx) Start: 09-16-2023 Encounter for other preprocedural examination JESE RICHARDSON [facility] Start: 09-16-2023 End: 09-17-2023 ambulatory JESE DARBY JORDANPAULCesar Facility:[facility] Start: 09-16-2023 Encounter for other preprocedural examination JESE RICHARDSON [facility] Start: 09-16-2023 End: 09-17-2023 ambulatory JESE DARBY DYLAN Facility:[facility] Start: 09-16-2023 End: 09-16-2023 PAT Pacc Main 6 Work Phone: Pre Anesthesia Comment on above: Pre-op evaluation (P rimary Dx); Post traumatic seizure disorder (HCC); Morbid obesity (HCC); Tobacco use Start: 09-16-2023 End: 09-16-2023 Preprocedural examination done Pacc Main 6 Work Phone: [facility] Work Phone: Start: 09-11-2023 End: 09-11-2023 Emergency department patient visit DAVONTE ONEILL MD Facility:[facility] Start: 09-11-2023 End: 09-11-2023 Emergency department patient visit DAVONTE ONEILL MD [facility] Start: 08-27-2023 End: 08-27-2023 ambulatory VIOLA STARKEY APRN-LEAD TECHNICAL ARCHITECT Facility:[facility] Start: 08-27-2023 End: 08-27-2023 Minor Procedure REYES MOORE DO [facility] Start: 08-06-2023 End: 08-06-2023 ambulatory LINDA GRIFFITHS Facility:[facility] Start: 08-06-2023 End: 08-06-2023 Patient encounter procedure Kelley Meraz BORDER PATROL OFFICER.LEAD TECHNICAL ARCHITECT, DNP Work Phone: Neurology Pain Comment on above: Abdominal pain, unsp ecified abdominal location (Primary Dx) Start: 07-21-2023 ambulatory Jese Richardson MD Work Phone: [facility] Comment on above: 4.23.24 Cure (Resect ion of Mesh 2 hours los 0) Start: 07-21-2023 Preprocedural examination done Jese Richardson MD Work Phone: [facility] Start: 07-18-2023 Orders Only Linda Gonzalezdave MCCARTY.LEAD TECHNICAL ARCHITECT Work Phone: General Surgery Comment on above: Left lower quadrant abdominal pain (Primary Dx) Start: 07-07-2023 End: 07-08-2023 ambulatory JESE RICHARDSON Facility:[facility] Start: 07-03-2023 End: 07-04-2023 Emergency department patient visit No Primary Care Physician [facility] Work Phone: Start: 06-28-2023 End: 06-28-2023 Emergency department patient visit DR LEDY REESE MD Facility:[facility] Start: 06-28-2023 End: 06-28-2023 Emergency department patient visit DR LEDY REESE MD [facility] Start: 06-12-2023 End: 06-12-2023 Patient encounter procedure No Primary Care Physician [facility] Work Phone: Start: 06-08-2023 End: 06-08-2023 Emergency department patient visit PAUL DOBSON Facility:[facility] Start: 06-08-2023 End: 06-08-2023 Emergency department patient visit DR PAUL DOBSON DO [facility] Start: 06-01-2023 End: 06-01-2023 Emergency department patient visit [facility] Work Phone: Start: 05-17-2023 End: 05-18-2023 ambulatory TOI MARMOLEJO DO Facility:[facility] Start: 05-16-2023 End: 05-17-2023 Emergency department patient visit TOI MARMOLEJO DO Facility:[facility] Start: 05-16-2023 End: 05-16-2023 Emergency department patient visit TOI MARMOLEJO DO [facility] Start: 02-23-2023 End: 02-23-2023 Emergency department patient visit [facility] Start: 02-12-2023 End: 02-12-2023 Emergency department patient visit TOI MARMOLEJO DO Facility:[facility] Start: 02-12-2023 End: 02-12-2023 Emergency department patient visit TOI MAROMLEJO DO [facility] Start: 10-28-2022 End: 10-29-2022 ambulatory ROSHNI FLORES PA-C Facility:[facility] Start: 10-28-2022 End: 10-28-2022 Patient encounter procedure ROSHNI FLORES PA-C [facility] Start: 10-28-2022 End: 10-28-2022 Emergency department patient visit YARA HENSON MD Facility:[facility] Start: 10-28-2022 End: 10-28-2022 Emergency department patient visit YARA HENSON MD [facility] Start: 10-21-2022 End: 10-22-2022 ambulatory AVANI CANTOR BORDER PATROL OFFICER-LEAD TECHNICAL ARCHITECT Facility:[facility] Start: 10-21-2022 End: 10-21-2022 Patient encounter procedure AVANI CANTOR APRN-LEAD TECHNICAL ARCHITECT [facility] Start: 10-20-2022 End: 10-20-2022 Emergency department patient visit DR LEDY REESE MD Facility:[facility] Start: 09-12-2022 End: 09-12-2022 Patient encounter procedure ROSHNI FLORES PA-C [facility] Start: 09-05-2022 End: 09-05-2022 Patient encounter procedure AVANI CANTOR BORDER PATROL OFFICER-LEAD TECHNICAL ARCHITECT [facility] Start: 08-28-2022 End: 08-28-2022 Emergency department patient visit [facility] Start: 08-18-2022 End: 08-18-2022 Emergency department patient visit [facility] Start: 07-22-2022 End: 07-22-2022 Emergency department patient visit BLANCO SHAW MD [facility] Start: 07-18-2022 End: 07-18-2022 SAME DAY STAY AARON DUQUE MD [facility] Start: 07-15-2022 End: 07-15-2022 Emergency department patient visit DAVONTE ONEILL MD [facility] Start: 07-09-2022 End: 07-09-2022 Admission to establishment AARON DUQUE MD [facility] Start: 06-27-2022 End: 06-28-2022 Emergency department patient visit YARA HENSON MD [facility] Start: 06-19-2022 End: 06-20-2022 Emergency department patient visit [facility] Comment on above: Seizure (CMS/HCC) (H CC) (Primary Dx) Start: 06-09-2022 End: 06-10-2022 Emergency department patient visit PHYSICIAN [facility] Start: 06-06-2022 End: 06-06-2022 Emergency department patient visit PHYSICIAN [facility] Start: 05-31-2022 End: 06-01-2022 Emergency department patient visit YARA HENSON MD [facility] Start: 05-27-2022 End: 05-27-2022 Emergency department patient visit DR ABDI AGUIRRE MD [facility] Start: 05-22-2022 End: 05-23-2022 Emergency department patient visit PATRICK PLATA [facility] Start: 04-25-2022 End: 04-25-2022 Emergency department patient visit PCP [facility] Start: 04-25-2022 End: 04-25-2022 Emergency department patient visit [facility] Emergency Department Comment on above: Acute pain of right shoulder (Primary Dx); Strain of right shoulder, initial encounter Start: 04-03-2022 End: 04-03-2022 Emergency department patient visit PCP [facility] Start: 04-03-2022 End: 04-03-2022 Emergency department patient visit Pcp No [facility] Emergency Department Comment on above: Injury of right wris t, initial encounter (Primary Dx) Start: 03-14-2022 End: 03-15-2022 Emergency department patient visit JORGITO CANNON DO [facility] Start: 03-08-2022 End: 03-08-2022 Emergency department patient visit UNKNOWN PROVIDER [facility] Start: 03-08-2022 End: 03-08-2022 Emergency department patient visit Giles Darrion DO Work Phone: [facility] Comment on above: Closed head injury, initial encounter (Primary Dx) Start: 01-03-2022 End: 01-03-2022 Patient encounter procedure Ibrahima Schaefer MD Work Phone: General Surgery Comment on above: Hematoma (Primary Dx ); Incisional hernia, without obstruction or gangrene Start: 01-01-2022 End: 01-01-2022 Emergency department patient visit [facility] Start: 12-21-2021 End: 12-21-2021 Emergency department [facility] Start: 11-30-2021 End: 11-30-2021 Emergency department patient visit YARA HENSON MD [facility] Start: 11-14-2021 End: 11-14-2021 Admission to establishment AARON DUQUE MD [facility] Start: 10-26-2021 End: 10-26-2021 Patient encounter procedure TRU TOUSSAINT BORDER PATROL OFFICER-LEAD TECHNICAL ARCHITECT [facility] Start: 10-06-2021 End: 10-06-2021 Emergency department patient visit ASHLYN BLISS MD [facility] Start: 12-23-2016 End: 12-23-2016 Emergency department patient visit MILDRED GALLARDO [facility] Start: 12-16-2016 End: 12-16-2016 Emergency department patient visit JOSH HELTON [facility] Procedures Date Procedure Procedure Detail Performing Clinician Start: 12-29-2024 Computed tomography of abdomen and pelvis with intravenous contrast Viola HAYESC Work Phone: Start: 12-29-2024 Estimated creatinine clearance Viola HAYESC Work Phone: Start: 12-09-[address] Cristian Barrera DO Work Phone: Start: 12-09-2024 Computed tomography of abdomen and pelvis with intravenous contrast Dr. Cristian Barrera DO Work Phone: Start: 12-06-2024 Plain x-ray of hand Dr. [...] Speci men Type: BLOOD SPECIMEN Ordering Facility: [facility] Address: [address] [place] [address] Performed By: #### T [id number] #### CC MAIN BLOOD BANK [facility] [id number] [address] [place] [address] [place] Start: 08-27-2023 Colonoscopy REYES [...] 06-19-2022 Basic metabolic pane l calcium total Alexsander Pratik PA Work Phone: Start: 06-19-2022 Drug assay carbamaze pine total Kyree Christie PA Work Phone: Start: 04-25-2022 Radex shoulder compl ete minimum 2 views PCP NO Start: 04-25-2022 [facility] ORTHOPED IC SUPPLIES PCP NO Start: 04-25-2022 Radex shoulder compl ete minimum 2 views Julianna Grijalva PA Work Phone: Start: 04-03-2022 APPLY DIEGO WRAP PCP NO Start: 04-03-2022 Radex wrist complete minimum 3 views PCP NO Start: 04-03-2022 Radex wrist complete minimum 3 views Julianna Grijalva PA Work Phone: Start: 03-08-2022 Ct cervical spine w/ o contrast material Giles Darrion DO Work Phone: Start: 03-08-2022 Ct head/brain w/o co ntrast material Giles Darrion DO Work Phone: Start: 01-01-2022 Computed tomography of abdomen and pelvis with contrast Start: 11-22-2021 Repair of recurrent ventral hernia YARA HENSON MD Start: 06-16-2018 History of repair of umbilical hernia TRU TOUSSAINT BORDER PATROL OFFICER-LEAD TECHNICAL ARCHITECT Start: 08-29-2017 Adult depression scr eening assessment Ibrahima Schaefer MD Work Phone: Start: 11-12-2016 Lipid 1996 panel - S luigi or Plasma Linda Griffiths BORDER PATROL OFFICER.LEAD TECHNICAL ARCHITECT Work Phone: Appendectomy ASHLYN Segura Drain, device (physi mary alice object) AVANI CANTOR BORDER PATROL OFFICER-LEAD TECHNICAL ARCHITECT Comment on above: placed and removed x 3 Plan of Treatment Date Care Activity Detail Author Start: 2029 Zoster Vaccines (1 of 2) Zoste r Vaccines (1 of 2) [facility] Start: 12-29-2024 [facility] Start: 12-09-2024 Hepatic function panel [facility] Start: 12-09-2024 Triacylglycerol lipa se measurement [facility] Start: 12-07-2024 [facility] Start: 08-24-2024 [facility] Start: 02-15-2024 COVID-19 Vaccine ( season) COVID-19 Vaccine () [facility] Start: 02-15-2024 Influenza vaccination [facility] Start: 07-21-2023 End: 07-21-2024 aPTT in Platelet poor plasma by Coagulation assay ACTIVATED PTT Lab Routine Preoperative examination Infected hernioplasty mesh, sequela Expected: 07/21/2023, Expires: 07/21/2024 [facility] Work Phone: Comment on above: Expected: 07/21/2023 , Expires: 07/21/2024 Start: 07-21-2023 End: 07-21-2024 CBC W Auto Differential panel - Blood CBC + DIFF Lab Routine Preoperative examination Infected hernioplasty mesh, sequela Expected: 07/21/2023, Expires: 07/21/2024 [facility] Work Phone: Comment on above: Expected: 07/21/2023 , Expires: 07/21/2024 Start: 07-21-2023 End: 07-21-2024 Comprehensive metabolic 2000 panel - Serum or Plasma COMP METABOLIC PANEL Lab Routine Preoperative examination Infected hernioplasty mesh, sequela Expected: 07/21/2023, Expires: 07/21/2024 [facility] Work Phone: Comment on above: Expected: 07/21/2023 , Expires: 07/21/2024 Start: 07-21-2023 End: 07-21-2024 PT panel - Platelet poor plasma by Coagulation assay PROTHROMBIN TIME/PT Lab Routine Preoperative examination Infected hernioplasty mesh, sequela Expected: 07/21/2023, Expires: 07/21/2024 [facility] Work Phone: Comment on above: Expected: 07/21/2023 , Expires: 07/21/2024 Start: 07-21-2023 End: 07-21-2024 TYPE AND SCREEN,30 DAY TYPE AND SCREEN,30 DAY Blood Bank Routine Preoperative examination Infected hernioplasty mesh, sequela Expected: 07/21/2023 (Approximate), Expires: 07/21/2024 [facility] Work Phone: Comment on above: Expected: 07/21/2023 (Approximate), Expires: 07/21/2024 Start: 07-03-2023 [facility] Start: 06-16-2023 Depression Assessment Depression Ass essment [facility] Start: 06-12-2023 Patient referral [facility] Work Phone: Start: 06-01-2023 [facility] Start: 02-14-2023 Covid-19 Vaccine ( season) Covid-19 Vaccine ( season) [facility] Start: 02-14-2023 Influenza vaccination Influenza Vacc ine (#1) [facility] Start: 02-14-2022 Influenza vaccination [facility] Start: 01-14-2022 Influenza vaccination Flu vaccine (# 1) [facility] Start: 01-03-2022 End: 03-05-2022 Bacteria identified in Body fluid by Culture [facility] Work Phone: Comment on above: Expected: 01/03/2022 , Expires: 03/05/2022 Start: 01-01-2022 Application of abdom inal corset [facility] Work Phone: Start: 11-12-2021 Lipid panel Lipid Screening [facility] Start: 11-12-2021 LIPID SCREEN LIPID SCREEN [facility] Start: 06-25-2021 COVID-19 Vaccine (4 - Booster for Moderna series) COVID-19 Vaccine (4 - Booster for Moderna series) [facility] Start: 2019 Lipid panel Lipids [facility] Start: 08-29-2018 Adult depression screening assessment DEPRESSION SCREENING [facility] Start: 2014 Diabetes screen [facility] Start: 2001 DTaP/Tdap/Td Vaccine s (1 - Tdap) DTaP/Tdap/Td Vaccines (1 - Tdap) [facility] Start: 1998 DTaP/Tdap/Td vaccine (1 - Tdap) DTaP/Tdap/Td vaccine (1 - Tdap) [facility] Start: 1998 DTaP/Tdap/Td Vaccine s (1 - Tdap) DTaP/Tdap/Td Vaccines (1 - Tdap) [facility] Start: 1998 Hepatitis B Vaccine (1 of 3 - 19+ 3-dose series) Hepatitis B Vaccine (1 of 3 - 19+ 3-dose series) [facility] Start: 1998 Hepatitis B Vaccines (1 of 3 - 19+ 3-dose series) Hepatitis B Vaccines (1 of 3 - 19+ 3-dose series) [facility] Start: 1998 Pneumococcal Vaccine : Pediatrics and At-Risk Adult Patients (1 of 2 - PCV) Pneumococcal Vaccine: Pediatrics and At-Risk Adult Patients (1 of 2 - PCV) [facility] Start: 1998 Urine microalbumin profile [facility] Start: 1997 Diabetes mellitus screening Diabetes Screening [facility] Start: 1997 HEPATITIS C SCREENING HEPATITIS C SC REENING [facility] Start: 1997 Hepatitis C screening B [facility] Start: 1997 HIV SCREENING HIV SCREENING [facility] Start: 1997 HIV screening HIV Screening [facility] Start: 1994 HIV screening HIV screen [facility] Start: 1991 Depression Screen Depression Screen [facility] Start: 1985 PNEUMOCOCCAL (1 - PCV) PNEUMOCOCCAL (1 - PCV) [facility] Start: 1985 Pneumococcal 0-64 ye ars Vaccine (1 - PCV) Pneumococcal 0-64 years Vaccine (1 - PCV) [facility] Start: 1985 Pneumococcal vaccination Pneum ococcal Vaccine (1 of 2 - PCV) [facility] Start: 1985 Pneumococcal Vaccine : Pediatrics (0 to 5 Years) and At-Risk Patients (6 to 64 Years) (1 - PCV) Pneumococcal Vaccine: Pediatrics (0 to 5 Years) and At-Risk Patients (6 to 64 Years) (1 - PCV) [facility] Start: 01-25-1980 MMR Vaccines (1 of 1 - Standard series) MMR Vaccines (1 of 1 - Standard series) [facility] Start: 1979 COVID-19 Vaccine (#1) COVID-19 Vacci ne (#1) [facility] Start: 1979 Hepatitis B Vaccine (1 of 3 - 3-dose series) Hepatitis B Vaccine (1 of 3 - 3-dose series) [facility] Start: 1979 Hepatitis B Vaccines (1 of 3 - 3-dose series) Hepatitis B Vaccines (1 of 3 - 3-dose series) [facility] Start: 1979 HIV screening HIV Screening [facility] Start: 1979 Lipid panel Lipid Panel [facility] Start: 1979 Screening for malign ant neoplasm of colon [facility] Start: 1979 Yearly Adult Physical Yearly Adult P hysical [facility] End: 07-21-2024 ECG COMPLETE ECG COMPLETE ECG Routine Preoperative examination Infected hernioplasty mesh, sequela 1 Occurrences starting 07/21/2023 until 07/21/2024 [facility] Work Phone: Comment on above: 1 Occurrences starti ng 07/21/2023 until 07/21/2024 Erythrocyte mean corpuscular volume determination [facility] Hematocrit [Volume Fraction] of Blood [facility] Hemoglobin [Mass/vol ume] in Blood [facility] Leukocytes [#/volume ] in Blood [facility] Mean corpuscular hemoglobin concentration determination [facility] Mean corpuscular hemoglobin determination [facility] Measurement of renal function [facility] Neutrophil count [facility] Neutrophil percent differential count [facility] Patient Education [facility] Work Phone: Patient referral [facility] Work Phone: Platelets [#/volume] in Blood [facility] Red blood cell count [facility] Red cell distributio n width determination [facility] REFER FOR ADMIT INTERVIEW REFER FOR ADMIT INTERVIEW Procedures Routine Preoperative examination Infected hernioplasty mesh, sequela Ordered: 07/21/2023 [facility] Work Phone: Comment on above: Ordered: 07/21/2023 SPINE INTERVENTION PROCEDURE SPINE INTERVENTION PROCEDURE Procedures Routine Left lateral abdominal pain Ordered: 10/10/2023 [facility] Work Phone: Comment on above: Ordered: 10/10/2023 [facility] Immunizations Immunization Date Immunization Notes Care Provider Fa tam 04-30-2021 SARS-CoV-2 (COVID-19 ) mRNA-1273 vaccine JORGITO CANNON DO [facility] Comment on above: Result Comment: 2021: [id number] 10-05-2020 SARS-CoV-2 (COVID-19 ) mRNA-1273 vaccine JORGITO CANNON DO [facility] 09-06-2020 SARS-CoV-2 (COVID-19 ) mRNA-1273 vaccine JORGITO CANNON DO [facility] 09-09-2013 influenza, seasonal, injectable, preservative free ASHLYN BLISS MD [facility] 09-09-2013 influenza virus vaccine, unspecified formulation [facility] Payers Date Payer Category Payer Managed Care (Private) [employer]N [employer] [id number] 2024 Self-pay [id number] 2023 Unknown NGUYỄN GUERRERO X [id number] 2023-Present [phone] [address] [address] [place] [address] HMO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 Emergency Room. Call 911 if necessary. 12/07/24 0013 Cosigner Signature (if applicable): CC: ERIC Starkey ~ Signed [facility]06-23-2025 Radiology Diagnostic study note [facility] Imaging Services [address] [place], [place] [address] Hand Min 3 Views MR#: [id number] Acct: [id number] Name: PATRICK KOROMA Rep #: [id number] : 1980 M 44 From: Viki Ba MD PCP: ERIC Anaya Status: PRE ER Study:Hand Min 3 Views Date of Exam: Exam# [id number] Ordering Dr: Curtis Choi MD PROCEDURE: HAND MIN 3 VIEWS 12/06/2024 REASON FOR EXAM: INJURY TECHNIQUE: HAND MIN 3 VIEWS COMPARISON: None FINDINGS: No fracture or traumatic malalignment. Joint spaces are predominantly maintained. Bone mineral density is subjectively normal. The soft tissues are unremarkable. RAD/Hand Min 3 Views IMPRESSION: No acute osseous abnormality of the right hand. Reading Location: [facility] CC: MAKEUP ARTISTRY INSTRUCTOR-Marielos Starkey; Dr. Guevara Choi MD ~ Experience Design Director: Signed [facility]04-06-[address] [facility] Medical Records Department [address] [place] [address] Emergency Department Summary 09/19/24 MR#: [id number] Acct: [id number] Name: PATRICK KOROMA Rep #:[id number] : 1980 44 From: Brian Maldonado MD PCP: ERIC Anaya Status:REG ER Location: ED HPI History of Present Illness Chief Complaint: Upper Extremity Injury Narrative Narrative: 44-year-old male, zovmv-mrwl-uekattap, presents with injury to his right shoulder and clavicle thathe sustained on Friday, 5 days ago. He relates history that he was seen a few weeks ago and was having shoulder pain previously. He was seen in the emergency department and prescribed a medicationf or tendinitis which has not been helping. He was on a forefoot stepladder whenhe was trying to get down and missed a stair, and landed on his right shoulder. While he may have hit his head and fell onto his right side, he denies any loss of consciousness or any other injury. He has been having painin his right shoulder and right clavicle ever since. Pain is worse with movement and when hetries to raise his right arm. Denies other injuries. [facility] Medical History Seroma after procedure Influenza [...] clavicle and shoulder pain worse with movement. Awzbt-iske-nznvezic. Denies hitting of his head or loss [...] AC joint separation. Patient was given 1 [place]brook tablet here for analgesia and x-rays obtained [...] not improving. I feel he can take alch-twf-acgoizv medications for analgesia. Return instructions to the [...] Week if not improving Viola Starkey NP, MAKEUP ARTISTRY INSTRUCTOR-C [Primary Care Provider] - Activity Restrictions/Additional Instructions: You may wear the sling for comfort but exercise your right shoulder at least 3 times a day to prevent frozen shoulder. Cpvb-qqk-nqhpoyx medications as needed for pain. Follow-up with orthopedics if not improving. Print Language: Hungarian Disposition Disposition: Home, Self Care What to do if you have Problems For any increased pain, shortness of breath, bleeding, nausea or vomiting, chestpain, or any unexpected problems, contact your Primary Care Provider. Call [facility] ([phone]) or report tothe closest Emergency Room. Call 911 if necessary. 09/19/242224 Cosigner Signature (if applicable): CC: MAKEUP ARTISTRY INSTRUCTOR-C Viola Starkey ~ Signed [facility]04-06-2025 Radiology Diagnostic study note [facility] Imaging Services [address] [place] [address] Shoulder min 2 Views MR#: [id number] Acct: [id number] Name: PATRICK KOROMA Rep #: [id number] : 1980 M 44 From: Zuly Tena DO PCP: ERIC Anaya Status: REG ER Study:Shoulder min 2 Views Date of Exam: 09/19/24 Exam# [id number] Ordering Dr: Brian Maldonado MD PROCEDURE: SHOULDER [...] ERIC Starkey; Dr. Brian Maldonado MD ~ Experience Design Director: Signed [facility]04-06-2025 Radiology Diagnostic study note [facility] Imaging Services [address] [place], [place] [address] Clavicle MR#: [id number] Acct: [id number] Name: PATRICK KOROMA Rep #: [id number] : 1980 M 44 From: Zuly Tena DO PCP: ERIC Anaya Status: REG ER Study:Clavicle Date of Exam: 09/19/24 Exam# [id number] Ordering Dr: Brian Maldonado MD PROCEDURE: CLAVICLE 09/19/2024 REASON FOR EXAM: TRAUMA TECHNIQUE: Two views of the right clavicle were obtained COMPARISON: None FINDINGS: Bones: No acute fracture. Joints: Joint spaces are preserved. Soft tissues: No soft tissue abnormality. RAD/Clavicle IMPRESSION: NO EVIDENCE OF CLAVICLE FRACTURE Reading Location: [place] CC: ERIC Starkey; Dr. Brian Maldonado MD ~ Experience Design Director: Signed [facility]04-06-2025 Discharge summary Author Brian Maldonado [facility] Note Date/Time September 19, 2024 10:2 5pm [facility] Medical Records Department [address] [place] [address] Emergency Department Summary 09/19/24 MR#: [id number] Acct: [id number] Name: PATRICK KOROMA Rep #:[id number] : 1980 44 From: Brian Maldoando MD PCP: FREDDY AnayaC Status:REG ER Location: ED HPI History of Present Illness Chief Complaint: Upper Extremity Injury Narrative Narrative: 44-year-old male, cfgsa-qdyi-vfaheejk, presents with injury to his right shoulder [...] raise his right arm. Denies other injuries. [facility] Medical History Seroma after procedure Influenza [...] clavicle and shoulder pain worse with movement. Bubxi-ghzy-kwoirdiq. Denies hitting of his head or loss [...] AC joint separation. Patient was given 1 [place] tablet here for analgesia and x-rays obtained [...] not improving. I feel he can take ausb-frf-aybrmzr medications for analgesia. Return instructions to the [...] Week if not improving Viola Starkey NP, MAKEUP ARTISTRY INSTRUCTOR-C [Primary Care Provider] - Activity Restrictions/Additional Instructions: You may wear the sling for comfort but exercise your right shoulder at least 3 times a day to prevent frozen shoulder. Wgqk-gie-abbcrsz medications as needed for pain. Follow-up with orthopedics if not improving. Print Language: Hungarian Disposition Disposition: Home, Self Care What to do if you have Problems For any increased pain, shortness of breath, bleeding, nausea or vomiting, chestpain, or any unexpected problems, contact your Primary Care Provider. Call [facility] ([phone]) or report to the closest Emergency Room. Call 911 if necessary. 09/19/242224 <Electronically signed by Brian Maldonado MD> Cosigner Signature (if applicable): CC: MAKEUP ARTISTRY INSTRUCTOR-C Viola Starkey ~ Signed [facility] Work Phone: 1(904) 139-694603-11-2025 Radiology Diagnostic study note [facility] Imaging Services [address] [place], [place] [address] Shoulder min 2 Views MR#: [id number] Acct: [id number] Name: PATRICK KOROMA Rep #: [id number] : 1980 M 44 From: Shahbaz Johnson DO PCP: Care Physician,No Primary Status: PRE ER Study:Shoulder min 2 Views Date of Exam: 08/24/24 Exam# [id number] Ordering Dr: Provider ,Ed P. PROCEDURE: Right shoulder radiographs REASON FOR EXAM: PAIN, LOSS OF MOBILITY TECHNIQUE: Four views of the right shoulder COMPARISON: None. FINDINGS: See impression RAD/Shoulder min 2 Views IMPRESSION: Negative for acute fracture or malalignment. 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 Mildacromioclavicular joint osteoarthritis. Reading Location: [facility] CC: ED PHYSICIAN PROVIDER; No Primary Care Physician ~ Experience Design Director: Signed [facility]02-28-2025 History of Present illness Narrative* Stephon [...] <40). Stephon Benavides MD documented in this [facility] Work Phone: 1(466) 427-479901-14-2025 History of Present illness Narrative* Jonathan Gonzalez MD - 06/29/2024 2:45 PM EST History Of Present Illness : Patrick Cali is a 44 y.o. male who presents as a self-referral for second opinion with regard to his abdominal wall. The patient lives in [facility]. The patient has had multiple abdominal operations in the past. He had a laparoscopic appendectomy in 2000 in [place]. He thereafter had 3 operations for abdominal wall hernias by Dr. Aaron Duque at [facility]. In 2016 and 2018, he underwent laparoscopic [...] abdomen pelvis was in May 09 at [facility] in [place]. The patient has noted recurrent fullness in the mid abdomen, with associated sharp pain especially at night, since March 2024.. He denies other symptoms such as nausea vomiting diarrhea constipation changes bowel habits or blood in the stool. Patient is engaged to be to Afshan who accompanied him to the office. He has 4 children. 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 The patient denies [...] Not Present- Headaches, Numbness, Tingling, Seizures, Stroke, WAITSTAFF CAPTAIN Shunt and Weakness. Psychiatric: Not Present- Anxiety, [...] recommendations and management plan documented in this [facility] Work Phone: 1(910) 110-581512-02-2024 Hospital Discharge instructions Patient Education 05/16/2024 22:58:38 [...] or as directed by your healthcare provider [phone] [employer]. [address] [place] [address]. All rights reserved. This information is not intended as a substitute for professional medical care. Always follow yourhealthcare professional's instructions. Follow Up Care 05/16/2024 21:33:35 With:AARON DUQUE MD, Surgery Address: [address] [facility] [place] [address] [phone] When:2-4 days [facility] 12-01-2024 Emergency department Discharge summary Discharge Instructions Thank you for allowing [facility] to assist you with your healthcare needs. [...] Surgery When:Within 2-4 days Where:[address] [facility] [place] [address] [phone] Allergies Keflex Keppra Rash Tape, Paper Rash [...] or as directed by your healthcare provider [phone] [employer]. [address] [place] [address], [place] [address]. All rights reserved. This information is not intended as a substitute for professional medical care. Always follow yourhealthcare professional's instructions. Additional Information VACCINATE! IT SAVES LIVES! Members of the community who have not yet received the COVID-19 vaccine and would like to receive it can visit one of [facility] vaccine clinics. There are many vaccine clinic locations within the [facility]. For locations and available times, please visit www.gettheshot.coronavirus.[place].gov/. It is important to note that some COVID mobile vaccine clinics are held outdoors and may be canceled in rainy or stormy conditions. To learn more about pediatric vaccinations (ages 5-11), we invite you to visit the [facility] webpage. https://www.[facility].org/pages/1431-Wsioc-Gpgoqaloinh-Uzdgdkynhk-Zykrv-Rpr stions.htmlTo learn more about the COVID-19 vaccine, we invite you to visit the CDC website for a list of frequently asked questions. https://www.cdc.gov/coronavirus/2019-ncov/vaccines/faq.html [facility] Patient Portal Access Instructions: Stay connected with your healthcare team and access your personal medical information anytime with the [employer] Patient Portal. If you would like a full copy of your medical records please contact the [facility] Medical Records Department Friday through Friday between 8a.m. and 4:30p.m. Please follow the directions below to access the portal: 1.Access the email account you provided upon registration to the [facility].2.Look for an invitation email from [facility].3.Open the email and access the invitation link: Accept Invitation to [employer]4.Fill in the required vegas to create your account. Sign into [email or web address].[email or web address] with your username and password that you [...] you will allow to register on the [employer] Patient Portal for access to your information. You can also access the [employer] Patient Portal on the [employer] yen. Simply click on Health Records under [employer]ira[employer] and then click on the [employer] logo. [...] Call your local pharmacy or go to [email or web address] to find one close to you.3.Make use of household items: Use cat litter or old coffee grounds to dispose medications if other options arenot available. Mix your drugs with these household products, seal them in an airtight container andthrow it into the garbage. Call [facility]: [phone] to be sure your drugs can be [...] aware that I should contact my doctor. Patient/Ballet Professor Signature: Date/Time: Relationship to Patient: Witness Name/Signature: Date/Time: [facility] [id number] Emergency department Discharge summary Discharge Instructions Thank [...] DUQUE MD, Surgery When:Within 2-4 days Where:[address] [facility] [place] [address] [phone] Allergies Keflex Keppra Rash Tape, Paper Rash [...] or as directed by your healthcare provider [phone] [employer]. [address] [place] [address], [place] [address]. All rights reserved. This information is not intended as a substitute for professional medical care. Always follow yourhealthcare professional's instructions. Additional Information VACCINATE! IT SAVES LIVES! Members of the community who have not yet received the COVID-19 vaccine and would like to receive it can visit one of [facility] vaccine clinics. There are many vaccine clinic locations within the [facility]. For locations and available times, please visit www.gettheshot.coronavirus.[place].gov/. It is important to note that some COVID mobile vaccine clinics are held outdoors and may be canceled in rainy or stormy conditions. To learn more about pediatric vaccinations (ages 5-11), we invite you to visit the [facility] webpage. https://www.[facility].org/pages/4482-Sntid-Oclqudeefsu-Upjxwhtypu-Orves-Bpx stions.htmlTo learn more about the COVID-19 vaccine, we invite you to visit the CDC website for a list of frequently asked questions. https://www.cdc.gov/coronavirus/2019-ncov/vaccines/faq.html [facility] Patient Portal Access Instructions: Stay connected with your healthcare team and access your personal medical information anytime with the [employer] Patient Portal. If you would like a full copy of your medical records please contact the [facility] Medical Records Department Friday through Friday between 8a.m. and 4:30p.m. Please follow the directions below to access the portal: 1.Access the email account you provided upon registration to the [facility].2.Look for an invitation email from [facility].3.Open the email and access the invitation link: Accept Invitation to [facility]4.Fill in the required vegas to create your account. Sign into www.Vivox with your username and password that you [...] you will allow to register on the [employer] Patient Portal for access to your information. You can also access the [employer] Patient Portal on the [employer] yen. Simply click on Health Records under Netcordiata and then click on the Wandy logo. [...] Call your local pharmacy or go to [email or web address] to find one close to you.3.Make use of household items: Use cat litter or old coffee grounds to dispose medications if other options arenot available. Mix your drugs with these household products, seal them in an airtight container andthrow it into the garbage. Call [facility]: [phone] to be sure your drugs can be [...] aware that I should contact my doctor. Patient/Ballet Professor Signature: Date/Time: Relationship to Patient: Witness Name/Signature: Date/Time: [facility]12-01-2024 Note ORIGINAL EXAMINATION: CT OF THE [...] Sign Date: 05/16/2024 10:27:09 PM Ordering Provider: [facility]05-07-2024 Telephone encounter Note* Telephone Encounter - [...] Dr. Hannah. Christy Rodrigez RN BSN Nurse Cream Hauler [facility] Work Phone: [phone] 435-462205-07-2024 Miscellaneous Notes* Telephone Encounter - Christy Rodrigez [...] Dr. Hannah. Christy Rodrigez RN BSN Nurse Cream Hauler * Telephone Encounter - Christy Rodrigez RN - 10/10/2023 10:21 AM EDT Neuro SPINE CARE COORDINATION QUICK NOTE Dr. Borrero received referral from Dr. Richardson. Ordered placed for spine med injection with Dr. Hannah. Called patient to advise. Received VM message 'calling restrictions that have prevented the completion of the call' MYC message sent. Christy Rodrigez RN BSN Nurse Cream Hauler documented [facility] Telephone encounter Note * Telephone Encounter - Christy Rodrigez RN - 10/10/2023 10:21 AM EDT Neuro SPINE CARE COORDINATION QUICK NOTE Dr. Borrero received referral from Dr. Richardson. Ordered placed for spine med injection with Dr. Hannah. Called patient to advise. Received VM message 'calling restrictions that have prevented the completion of the call' MYC message sent. Christy Rodrigez RN BSN Nurse Cream Hauler [facility]04-02-2024 History and physical note* Diana Graham PA-C [...] COVID-19 Immunization Status Overdue - Covid-19 Vaccine (4 - 2023-24 season) Overdue since 02/14/2023 04/30/2021 Imm Admin: COVID-19 original vaccine, full dose, monovalent (MODERNA) 10/05/2020 Imm Admin: COVID-19 original vaccine, full dose, monovalent (MODERNA) 09/06/2020 Imm Admin: COVID-19 original vaccine, full dose, monovalent (MODERNA) Only the first 3 history entries have been loaded, but more history exists. CHIEF COMPLAINT: Pre-op exam HPI: Patrcik Koroma is a 43 year old male [...] requiring medication, no history of angina, CHF, RI, cardiac surgery or stents. Denies rest pain, [...] 362 QTC Calculation (Bazett) 457 Calculated P Deale 30 Calculated R Deale 19 Calculated T Deale 18 Impression NORMAL SINUS RHYTHM NORMAL ECG No results found for this or any previous visit (from the past 95691 hour(s)). Instructions Given to Patient: Instructions located in the after visit summary. Patient given verbal and written preop instructions and voices comprehension and compliance. SIGNATURE: Diana Graham PA-C PATIENT NAME: Patrick Koroma DATE: September 15, 2023 TIME: 1:59 PM PAGER/CONTACT #: documented in this encounterK[facility]04-[facility]-2024 Instructions* Patient Instructions* Diana Graham PA-C - 09/15/2023 1:58 PM EDT PATIENT PREOPERATIVE INSTRUCTIONS Jese Richardson* has scheduled you for your procedure at this surgery center: [facility] [place] [facility] Scheduling Office: [phone] --[address] [place] [address]. Please read below carefully for your personalized [...] Procedures: - YOU MUST HAVE A RESPONSIBLE FLOOR WAXER TAKE YOU HOME. A STAFFING RECRUITER OR ANTIQUER CANNOT BE MADE A RESPONSIBLE FLOOR WAXER. - We recommend that a responsible person [...] call the Friday before. Your surgeon s surgery scheduler will tell you what time to call the office. - If you have not reached the departmental surgery scheduler by 5 P.M., call [phone] after 5 P.M. the day before your surgery. Please be aware that emergency situations arise, which may delay or change your surgical time. If this happens, we will notify you as soon as possible and regret any inconvenience. If you already have an Advance Directive, please fax a copy to [phone] or email to for it to be [...] day. Diana Graham PA-C documented in this encounterK[facility] Hospital Discharge instructions Patient Education 09/11/2023 18:40:07 [...] foods again, start with small amounts of oawe-zf-iiatop, low- fat foods. These include apple sauce, [...] increase stomach acid. Don't use aspirin or txvq-tvv-aggzoxo pain and fever medicines, if possible. This includes nonsteroidal anti-inflammatory drugs (NSAIDs). Lose excess weight. Finish eating at least 2 hours before you go to bed or lie down. Raise the head of your bed. [phone] [employer]. [address] [place] [address], [place] [address]. All rights reserved. This information is not intended as a substitute for professional medical care. Always follow yourhealthcare professional's instructions. Follow Up Care 09/11/2023 18:01:14 With:VIOLA STARKEY Address: [address] [place] [address] [phone] When:2-4 days [facility] 03-28-2024 Note Discharge Instructions Thank you for allowing [facility] to assist you with your healthcare needs. The following is importantdischarge information regarding your hospital visit. Diagnosis from Today's Visit Abdominal pain Abdominal pain What to Do Next Instructions from Your Care Team No qualifying data available. Post Acute Orders No qualifying data available. You Need to Schedule the Following Appointments Follow Up with VIOLA STARKEY When Within 2-4 days Where: [address] [place] [address] [phone] Allergies Keflex Keppra (Rash) Tape, Paper (Rash) [...] foods again, start with small amounts of talc-jg-cpvwuo, low- fat foods. These include apple sauce, [...] increase stomach acid. Don't use aspirin or aoil-fqc-yrpprzq pain and fever medicines, if possible. This includes nonsteroidal anti-inflammatory drugs (NSAIDs). Lose excess weight. Finish eating at least 2 hours before you go to bed or lie down. Raise the head of your bed. [phone] [employer]. [address] [place] [address]. All rights reserved. This information is not intended as a substitute for professional medical care. Always follow yourhealthcare professional's instructions. Additional Information VACCINATE! IT SAVES LIVES! Members of the community who have not yet received the COVID-19 vaccine and would like to receive it can visit one of [facility] vaccine clinics. There are many vaccine clinic locations within the [facility]. For locations and available times, please visit www.gettheshot.coronavirus.[place].gov/. It is important to note that some COVID mobile vaccine clinics are held outdoors and may be canceled in rainy or stormy conditions. To learn more about pediatric vaccinations (ages 5-11), we invite you to visit the [facility] webpage. https://www.[facility].org/pages/4501-Bkecs-Qfrxmdemggc-Zwyczuylky-Unwst-Jyc stions.htmlTo learn more about the COVID-19 vaccine, we invite you to visit the CDC website for a list of frequently asked questions. https://www.cdc.gov/coronavirus/2019-ncov/vaccines/faq.html [facility] Patient Portal Access Instructions: Stay connected with your healthcare team and access your personal medical information anytime with the [facility] [employer] Patient Portal. If you would like a full copy of your medical records please contact the [facility] Medical Records Department Friday through Friday between 8a.m. and 4:30p.m. Please follow the directions below to access the portal: 1.Access the email account you provided upon registration to the [facility].2.Look for an invitation email from [facility].3.Open the email and access the invitation link: Accept Invitation to [facility]4.Fill in the required vegas to create your account. Sign into [email or web address] with your username and password that you [...] you will allow to register on the [facility] [employer] Patient Portal for access to your information. You can also access the [facility] Patient Portal on the [employer] yen. Simply click on Health Records under MadeiraMadeira and then click on the Wandy logo. [...] Call your local pharmacy or go to [email or web address] to find one close to you.3.Make use of household items: Use cat litter or old coffee grounds to dispose medications if other options arenot available. Mix your drugs with these household products, seal them in an airtight container andthrow it into the garbage. Call [facility]: [phone] to be sure your drugs can be [...] aware that I should contact my doctor. Patient/Ballet Professor Signature: Date/Time: Relationship to Patient: Witness Name/Signature: Date/Time: [facility] [id number] Evaluation + Plan noteExtracted from: Title:Clinical Document Author:REYES MOORE DO D ate:08/27/23 [place] ADMISSION HISTORY AN D PHYSICIAL CHIEF COMPLAINT: Colorectal cancer screening HISTORY OF PRESENT ILLNESS: Colorectal cancer screening, high risk, family history of colon cancer REVIEW OF SYSTEMS: Constitutional: denies weight loss Cardiovascular:denies chest pain, palpitations Respiratory:denies shortness of breath Gastrointestinal:no abd pain Musculoskeletal: no arthralgias Skin: no rashes ACTIVE PROBLEMS: (13) Acid reflux (391543875) 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 ([id number]) Electric shock (5351610580) Fall (3364756) Family history of colon cancer (467374563) Full dentures (357307619) Pain in the abdomen (74997914) Postprocedural hematoma of skin and subcutaneous tissue following other procedure (703210843) Screening for colon cancer (630509474) Seizure (100733418) TIA (901434412) Tobacco use (4751873925) Umbilical hernia (6891351218) MEDICATIONS: Active Inpt Meds: None Active PRN [...] IgG 08/07/23 * Complete Metabolic Panel 08/07/23 [facility] 03-13-2024 Hospital Discharge instructions Patient Education [...] before eating solid foods. General instructions Take lnpj-iyy-jrddrqs and prescription medicines only as told by [...] 09/22/2016 Document Revised: 08/31/2018 Document Reviewed: 09/22/2016 [employer] Patient Education 2020 [employer]. 08/27/2023 10:26:35 Colonoscopy, Adult, Care After Colonoscopy, [...] a slower pace than normal. ?Eat soft, rnvo-lg-ruxohz foods. Take vjcx-cla-amxmwfy or prescription medicines only as told by [...] 01/14/2005 Document Revised: 03/25/2018 Document Reviewed: 08/13/2016 [employer] Patient Education [facility]. Follow Up Care 08/22/2023 07:36:51 With:REYES MOORE DO, Clinical Gastroenterology Address: [address] [place] [address] [phone] When:Within 1 Year(s) Comments:Repeat colonoscopy in 1 year. Will need extra bowel prep. With:VIOLA STARKEY Address: [address] [place] [address] [phone] When: [facility] 03-13-2024 Note Discharge Instructions Thank you for allowing [facility] to assist you with your healthcare needs. [...] year. Will need extra bowel prep. Where: [address] [place] [id number] [phone] Follow Up with VIOLA STARKEY When Where: [address] [place] [address] [phone] The Following Activity and Diet Have Been [...] before eating solid foods. General instructions Take tvws-jgx-hcybxfa and prescription medicines only as told by [...] 09/22/2016 Document Revised: 08/31/2018 Document Reviewed: 09/22/2016 [employer] Patient Education 2020 [employer]. Colonoscopy, Adult, Care After This sheet gives [...] slower pace than normal. ? Eat soft, pdyq-zh-zsoafk foods. Take jtbo-zpa-ikxixqb or prescription medicines only as told by [...] 01/14/2005 Document Revised: 03/25/2018 Document Reviewed: 08/13/2016 [employer] Patient Education 2020 [employer] Additional Information VACCINATE! IT SAVES LIVES! Members of the community who have not yet received the COVID-19 vaccine and would like to receive it can visit one of [facility] vaccine clinics. There are many vaccine clinic locations within the [facility]. For locations and available times, please visit https://gettheshot.coronavirus.[place].gov/. It is important to note that some COVID mobile vaccine clinics are held outdoors and may be canceled in rainy or stormy conditions. To learn more about pediatric vaccinations (ages 5-11), we invite you to visit the [facility] webpage. https://www.[facility].org/pages/6118-Kyatg-Zljmmgadgro-Vwigmsuwxu-Cqira-Psj stions.htmlTo learn more about the COVID-19 vaccine, we invite you to visit the CDC website for a list of frequently asked questions.https://www.cdc.gov/coronavirus/2019-ncov/vaccines/faq.html [facility] Patient Portal Access Instructions: Stay connected with your healthcare team and access your personal medical information anytime with the [facility] Patient Portal. Please follow the directions below to create your [employer] account: 1.Access the email account you provided upon registration to the hospital/physician office.2.Look for an invitation email from [facility].3.Open the email and access the invitation link: AcceptInvitation to [employer].4.Fill in the required vegas to create your account. To access your account, visit [email or web address]. Click the blue button labeled Access Patient Portal and then log in with the username and password that you created in the steps above. You will be able to view your test results, lab results, a summary of your visits, upcoming appointments and more. There is also a convenient messaging option where you can send secure messages to your p [email or web address]. In addition, you will have the ability to download any documents or summaries to your computer and/or send the information securely to a physician. Remember that your healthcare information is confidential, so carefully consider who you will allowto register on the [facility] Patient Portal for access to your information. You can also access the [facility] Patient Portal on the [facility] [employer] yen. Simply click on Patient Portal and then log into your account. If you would like to receive a full copy of your medical records, please contact the [facility] Medical Records Department by calling [phone], Friday through Friday between 8 a.m. and [...] Call your local pharmacy or go to [email or web address] to find one close to you.3.Make use of household items: Use cat litter or old coffee grounds to dispose medications if other options arenot available. Mix your drugs with these household products, seal them in an airtight container andthrow it into the garbage. Call [facility]: [phone] to be sure your drugs can be [...] aware that I should contact my doctor. Patient/Ballet Professor Signature: Date/Time: Relationship to Patient: Witness Name/Signature: Date/Time: [facility]03-13-2024 Anesthesiology Consult note Patient: PATRICK KOROMA Age: 43 years Sex: Male : 1980 Associated Diagnoses: None Author: DARIEL HITCHCOCK BORDER PATROL OFFICER-COLOR STRAINING BAG WASHER Assessment Postanesthesia assessment Vitals: Vital signs from [...] status: within normal limits. Digitally Signed by DAREIL HITCHCOCK on 08/27/2023 10:18 AM [facility]03-13-2024 Anesthesiology Consult note Patient: PATRICK KOROMA [...] Pain in the abdomen / SNOMED CT 09285245 / Confirmed Acid reflux / SNOMED CT 659880559 / Confirmed 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 / SNOMED CT [id number] / Confirmed Fall / SNOMED CT 8291678 / Confirmed Family history of colon cancer / SNOMED CT 340873113 / Confirmed Electric shock / SNOMED CT 5829697118 / Confirmed Full dentures / SNOMED CT 547157296 / Confirmed Screening for colon cancer / SNOMED CT 884172638 / Confirmed Postprocedural hematoma of skin and subcutaneous tissue following other procedure / SNOMED CT 226932303 / Confirmed Seizure / SNOMED CT 931526594 / Confirmed TIA / SNOMED CT 084633148 / Confirmed Umbilical hernia / SNOMED CT 4678361435 / Confirmed, Active Problems (13) Acid reflux 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 Electric shock Fall Family history of colon cancer Full dentures Pain in the abdomen Postprocedural hematoma of skin and subcutaneous tissue following other procedure Screening for colon cancer Seizure TIA Tobacco use Umbilical hernia Histories Past Medical History: Active TIA (100822284) Acid reflux (021520029) Seizure (884761894) Family History: Suicide Brother Congenital heart disease Brother Alcohol abuse Father () Stroke Mother Father () Diabetes Father () Colon cancer Father () Procedure history: Laparoscopic repair of recurrent umbilical hernia using synthetic mesh (3720571702) on 07/18/2022 at 42 Years. Comments: 07/23/2022 11:02 LAN - Leslie Boucher LPN OPEN REPAIR OF RECURRENT PERIUMBILICAL HERNIA WITH ANTERIOR COMPONENT SEPARATION WITH ONLAY MESH REPAIR Repair of recurrent ventral hernia (100227402) on 11/22/2021 at 41 Years. History of repair of umbilical hernia (8554825973) in 2019 at 39 Years. Appendectomy (880093097). Drain (50797405). 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 Tobacco 4Risk Assessment: High Risk 08/27/2023 Tobacco [...] Signs(last 24 hrs) Last Charted Heart Rate Bpsbrqzax48 bpm (AUG 26 09:40) DUI362 mmHg (AUG 26 09:46) DBPH 93mmHg (AUG 26 09:46) BMI42.04 (AUG 26 09:40) Measurements from flowsheet : Measurements 08/27/2023 9:40 EDT Height 184.5 cm Admission Weight 143.1 kg Weight Method Stated [place] Body Weight 79.07 kg BSA Admission 2.6 [...] Surgeon SN - CAt - Role Performed COLOR STRAINING BAG WASHER SN - CAt - Role Performed Powder Cutting Operator 1 SN - CAt - Role Performed [...] Quadrants Present Skin Temperature Warm Skin Description [place], Dry Skin Integrity Intact Skin Moisture General [...] Allergies Yes Anesthesia Extension Set Applied Yes Environmental Health Technician On Yes Colon Prep Results Good Consent [...] Person #1 We May Share RAINE Meyer [phone] Designated Person #1 Relationship Significant other Designated Person #2 We May Share PHI Lolis Almeida [phone] Designated Person #2 Relationship Mother Privacy Restrictions Requested None Height 184.5 cm Admission Weight 143.1 kg Weight Method Stated [place] Body Weight 79.07 kg BSA Admission 2.6 [...] Method Explanation, Printed materials Preferred Spoken Language Hungarian Preferred Written Language Hungarian Information Given by Patient Patient's Current Physicians Patient's Current Physicians Discharge To, Anticipated Home independently Prev Test Positive/Diagnosis w/COVID-19 Yes Previous COVID-19 Positive Date 2019 Current Quarantine/Isolated any Illness No Any [...] Safety In Error (In Error) 08/27/2023 7:00 [facility] History and Physical . Assessment and Plan [place] Society of Anesthesiologists (ASA) physical status classification: Class III. Anesthetic Preoperative Plan Anesthetic technique: MAC. Informed consent: signed by patient. Digitally Signed by DARIEL HITCHCOCK on 08/27/2023 10:09 AM [facility]03-13-2024 Note [place] ADMISSION HISTORY AND PHYSICIAL CHIEF COMPLAINT: Colorectal cancer screening HISTORY OF PRESENT ILLNESS: Colorectal cancer screening, high risk, family history of colon cancer REVIEW OF SYSTEMS: Constitutional: denies weight loss Cardiovascular:denies chest pain, palpitations Respiratory:denies shortness of breath Gastrointestinal:no abd pain Musculoskeletal: no arthralgias Skin: no rashes ACTIVE PROBLEMS: (13) Acid reflux (143136995) 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 ([id number]) Electric shock (7127640337) Fall (1894530) Family history of colon cancer (913003592) Full dentures (575963534) Pain in the abdomen (79409980) Postprocedural hematoma of skin and subcutaneous tissue following other procedure (293727429) Screening for colon cancer (371955487) Seizure (131374597) TIA (298525404) Tobacco use (2471560755) Umbilical hernia (4447249346) MEDICATIONS: Active Inpt Meds: None Active PRN [...] REYES MOORE DO on 08/27/2023 07:01 AM [facility]02-22-2024 Evaluation + Plan note Future Scheduled Tests Laboratory* Thyroid Stimulating Hormone 08/07/23 * Complete Blood Count 08/07/23 * Lipid Profile 08/07/23 * Hepatitis C Antibody IgG 08/07/23 * Complete Metabolic Panel 08/07/23 [facility] 02-21-2024 NoteHNO ID: [id number] Author: KELLEY MERAZ APRN.BERT, ALMA Service: ? 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 He was referred by Linda Griffiths CNP (General Surgery) [address] [address]. This consultation was shared with the referral source via the [facility] electronic medical record. The patient understanding of [...] activity was identified. 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 He was referred by Linda Griffiths CNP (General Surgery) [address] [place] [id number]. This consultation was shared with the referral source via the [facility] electronic medical record. The patient understanding of [...] suspiciousactivity was identified. 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 He dropped out in the 12th grade due to heart attack. Got his GED. 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 [...] which included preparing to see the patient, fjrb-gf-juol patient care, completing clinical documentation, obtaining and/or reviewing separately obtained history, performing a medically appropriate examination, counseling and educating the pat ient/family/caregiver, and ordering medications, tests, or procedures. Kelley Meraz APRN.ALMA NOEL documented in [facility]-2024 NoteHNO ID: [id number] Author: JESE RICHARDSON MD Service: ? Author [...] our notes. Patient consented for study? [facility] NoteHNO ID: [id number] Author: VIVIANA TERESA MD Service: ? Author Type: Fellow Type: Progress Notes Filed: 07/07/2023 09:35 Note Text: 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 Mostly neuropathic pain [facility]. MICRO - Microbiology PROCEDURE: Blood [...] Locations *1: This test was performed at: [address] ([facility]07-03-2023 Note. MICRO - Microbiology PROCEDURE: Blood Culture [...] Locations *1: This test was performed at: [address], [address] [place] [address] ([place])07-01-2023 Note. MICRO - Microbiology PROCEDURE: Urine Culture [...] Locations *1: This test was performed at: [facility], [address] [place] [address], [address]- , [facility] ([place])06-28-2023 Hospital Discharge instructions Patient Education 06/28/2023 16:03:23 [...] re healing well. During visits, your stitches, zahcary, or bandage may be removed. When to [...] that gets worse Trouble urinating Constipation Vomiting [phone] [employer]. [address] [place] [address]. All rights reserved. This information is not intended as a substitute for professional medical care. Always follow yourhealthcare professional's instructions. Follow Up Care 06/28/2023 13:49:11 With:AARON DUQUE MD, Surgery Address: [address] [place] [address] [phone] When:2-4 days [facility] Address: [address] [place] [phone]- [phone] When:2-4 days [facility] 01-13-2024 Note Discharge Instructions Thank you for allowing [facility] to assist you with your healthcare needs. [...] the Following Appointments Follow Up with AARON DUUQE MD, Surgery When Within 2-4 days Where: [address] [place] [address] [phone] Follow Up with [facility] When Within 2-4 days Where: [address] [place] [phone] Allergies Keflex Keppra (Rash) Tape, Paper (Rash) [...] that gets worse Trouble urinating Constipation Vomiting [phone] [employer]. [address] [place] [address]. All rights reserved. This information is not intended as a substitute for professional medical care. Always follow yourhealthcare professional's instructions. Additional Information VACCINATE! IT SAVES LIVES! Members of the community who have not yet received the COVID-19 vaccine and would like to receive it can visit one of [facility] vaccine clinics. There are many vaccine clinic locations within the [facility]. For locations and available times, please visit www.gettheshot.coronavirus.[place].gov/. It is important to note that some COVID mobile vaccine clinics are held outdoors and may be canceled in rainy or stormy conditions. To learn more about pediatric vaccinations (ages 5-11), we invite you to visit the [facility] webpage. https://www.[facility].org/pages/9951-Aickt-Brxfwnhqkcv-Simoyzqnnk-Pnjbx-Qle stions.htmlTo learn more about the COVID-19 vaccine, we invite you to visit the CDC website for a list of frequently asked questions. https://www.cdc.gov/coronavirus/2019-ncov/vaccines/faq.html [employer] Patient Portal Access Instructions: Stay connected with your healthcare team and access your personal medical information anytime with the [employer] Patient Portal. If you would like a full copy of your medical records please contact the [facility] Medical Records Department Friday through Friday between 8a.m. and 4:30p.m. Please follow the directions below to access the portal: 1.Access the email account you provided upon registration to the [facility].2.Look for an invitation email from [facility].3.Open the email and access the invitation link: Accept Invitation to [employer]4.Fill in the required vegas to create your account. Sign into [email or web address] with your username and password that you [...] you will allow to register on the [employer] Patient Portal for access to your information. You can also access the [employer] Patient Portal on the [employer]. Simply click on Health Records under MadeiraMadeira and then click on the Xeround logo. HOW TO SAFELY DISPOSE OF PRESCRIPTION [...] Call your local pharmacy or go to http://[email or web address] to find one close to you.3.Make use of household items: Use cat litter or old coffee grounds to dispose medications if other options arenot available. Mix your drugs with these household products, seal them in an airtight container andthrow it into the garbage. Call [facility]: [phone] to be sure your drugs can be [...] aware that I should contact my doctor. Patient/Ballet Professor Signature: Date/Time: Relationship to Patient: Witness Name/Signature: Date/Time: [facility]01-13-2024 Note ORIGINAL EXAMINATION: CT OF THE [...] Sign Date: 06/28/2023 4:25:43 PM Ordering Provider: [facility]01-13-2024 Evaluation + Plan note Diagnostic Tests Pending * Urine Culture 06/28/23 [facility] 12-24-2023 Hospital Discharge instructions Patient Education 06/08/2023 [...] foods again, start with small amounts of tbhz-vd-qmogdy, low- fat foods. These include apple sauce, [...] increase stomach acid. Don't use aspirin or gczs-adl-finivfc pain and fever medicines, if possible. This includes nonsteroidal anti-inflammatory drugs (NSAIDs). Lose excess weight. Finish eating at least 2 hours before you go to bed or lie down. Raise the head of your bed. [phone] [employer]. [address] [place] [address]. All rights reserved. This information is not intended as a substitute for professional medical care. Always follow yourhealthcare professional's instructions. Follow Up Care 06/08/2023 17:37:31 With:Follow up with primary care provider Address:Unknown When:2-4 days [facility] 12-24-2023 Note Discharge Instructions Thank you for allowing [facility] to assist you with your healthcare needs. [...] to receive it can visit one of [facility] vaccine clinics. There are many vaccine clinic locations within the [facility]. For locations and available times, please visit www.gettheshot.coronavirus.[place].gov/. It is important to note that some COVID mobile vaccine clinics are held outdoors and may be canceled in rainy or stormy conditions. To learn more about pediatric vaccinations (ages 5-11), we invite you to visit the [facility] webpage. https://www.[facility].org/pages/8331-Vmllg-Lcqqmgwsmlt-Nkngrklwmc-Nuoim-Biq stions.htmlTo learn more about the COVID-19 vaccine, we invite you to visit the CDC website for a list of frequently asked questions. https://www.cdc.gov/coronavirus/2019-ncov/vaccines/faq.html [facility] [employer] Patient Portal Access Instructions: Stay connected with your healthcare team and access your personal medical information anytime with the [facility] [employer] Patient Portal. If you would like a full copy of your medical records please contact the [facility] Medical Records Department Friday through Friday between 8a.m. and 4:30p.m. Please follow the directions below to access the portal: 1.Access the email account you provided upon registration to the hospital.2.Look for an invitation email from [facility].3.Open the email and access the invitation link: Accept Invitation to [employer]4.Fill in the required vegas to create your [...] you will allow to register on the [facility] [employer] Patient Portal for access to your information. You can also access the [employer] Patient Portal on the [employer]. Simply click on Health Records under MadeiraMadeira and then click on the Wandy logo. [...] Call your local pharmacy or go to http://[employer].[facility]/[email or web address] to find one close to you.3.Make use of household items: Use cat litter or old coffee grounds to dispose medications if other options arenot available. Mix your drugs with these household products, seal them in an airtight container andthrow it into the garbage. Call [facility]: [phone] to be sure your drugs can be [...] aware that I should contact my doctor. Patient/Ballet Professor Signature: Date/Time: Relationship to Patient: Witness Name/Signature: Date/Time: [facility]12-02-2023 Hospital Discharge instructions Patient Education 05/16/2023 23:04:20 AA Blank DI (CUSTOM) Result type:CT Abd/Pelvis w/ IV Contrast Only Result date:May 16, 2023 21:13 EST Result status:Auth (Verified) Result title:CT ABD/PELVIS W/ IV CONTRAST ONLY Performed by:CARLO LUKE MD on May 16, 2023 21:06 EST Cosigned by:ZOILA MABRY DO Verified by:CARLO LUKE MD on May 16, 2023 21:13 EST Encounter info:[id number], [facility] Emergency, 05/16/2023 - Contributor system:Cassatt * Final Report * [id number] ORIGINAL EXAMINATION: CT OF THE ABDOMEN AND [...] Document Reviewed: 06/03/2014 ExitCare Patient Information 2015 [employer]. This information is not intended to replace [...] color of the hand or foot [employer]. [address] [place] [address]. All rights reserved. This information is not [...] Fainting or loss of consciousness Seizure [employer]. [address] [place] [address]. All rights reserved. This information is not intended as a substitute for professional medical care. Always follow [facility] professional[facility] instructions. 05/16/2023 20:27:06 Abdominal Pain Abdominal [...] foods again, start with small amounts of asmd-uf-vqooek, low- fat foods. These include apple sauce, [...] increase stomach acid. Don't use aspirin or vybu-xcd-iegkodn pain and fever medicines, if possible. This includes nonsteroidal anti-inflammatory drugs (NSAIDs). Lose excess weight. Finish eating at least 2 hours before you go to bed or lie down. Raise the head of your bed. [phone] [employer]. [address] [place] [address]. All rights reserved. This information is not intended as a substitute for professional medical care. Always follow yourhealthcare professional's instructions. Follow Up Care 05/16/2023 20:02:25 With:Go to emergency room if symptoms worsen Address:Unknown When:2-4 days With:Follow up with primary care provider Address:Unknown When:2-4 days [facility] 12-01-2023 Note ORIGINAL EXAMINATION: CT OF [...] Sign Date: 05/16/2023 10:45:51 PM Ordering Provider: [facility]08-30-2023 Hospital Discharge instructions Patient Education 02/12/2023 [...] chest, arm, back, neck or jaw pain 4337-9604 [employer]. [address] [place] [address], [place] [address]. All rights reserved. This information is not intended as a substitute for professional medical care. Always follow yourhealthcare professional's instructions. Follow Up Care 02/12/2023 17:22:30 With:AARON DUQUE Address: [address] [place] [address]- [phone] Business (1) When:2-4 days With:NONE PHYSICIAN Address:Unknown When:2-4 days [facility] [place] 08-30-2023 Emergency department Discharge summary Discharge Instructions Thank you for allowing [facility] to assist you with your healthcare needs. The following is importantdischarge information regarding your hospital visit. Diagnosis from Today's Visit Abdominal pain What to Do Next Instructions from Your Care Team No qualifying data available. Post Acute Orders No qualifying data available. You Need to Schedule the Following Appointments Follow Up with AARON DUQUE When Within 2-4 days Where: [address] [place] [address]- [phone] Business (1) Follow Up with NONE PHYSICIAN [...] chest, arm, back, neck or jaw pain [phone] [employer]. [address] [place] [address], [place] [address]. All rights reserved. This information is not intended as a substitute for professional medical care. Always follow yourhealthcare professional's instructions. Additional Information VACCINATE! IT SAVES LIVES! Members of the community who have not yet received the COVID-19 vaccine and would like to receive it can visit one of [facility] vaccine clinics. There are many vaccine clinic locations within the [facility]. For locations and available times, please visit www.gettheshot.coronavirus.[place].gov/. It is important to note that some COVID mobile vaccine clinics are held outdoors and may be canceled in rainy or stormy conditions. To learn more about pediatric vaccinations (ages 5-11), we invite you to visit the [facility] webpage. https://www.[facility].org/pages/1608-Achsu-Vrubnzytlhw-Yvgcthpfej-Cctco-Qxu stions.htmlTo learn more about the COVID-19 vaccine, we invite you to visit the CDC website for a list of frequently asked questions. https://www.cdc.gov/coronavirus/2019-ncov/vaccines/faq.html [facility] [employer] Patient Portal Access Instructions: Stay connected with your healthcare team and access your personal medical information anytime with the [employer] Patient Portal. If you would like a full copy of your medical records please contact the [facility] Medical Records Department Friday through Friday between 8a.m. and 4:30p.m. Please follow the directions below to access the portal: 1.Access the email account you provided upon registration to the [facility].2.Look for an invitation email from [facility].3.Open the email and access the invitation link: Accept Invitation to [facility] [employer]4.Fill in the required vegas to create your account. Sign into [email or web address] with your username and password that you [...] you will allow to register on the [facility] [employer] Patient Portal for access to your information. You can also access the [employer] Patient Portal on the [employer] yen. Simply click on Health Records under MadeiraMadeira and then click on the Xeround logo. HOW TO SAFELY DISPOSE OF PRESCRIPTION [...] Call your local pharmacy or go to [email or web address]://[employer].[email or web address] to find one close to you.3.Make use of household items: Use cat litter or old coffee grounds to dispose medications if other options arenot available. Mix your drugs with these household products, seal them in an airtight container andthrow it into the garbage. Call [facility]: [phone] to be sure your drugs can be [...] aware that I should contact my doctor. Patient/Ballet Professor Signature: Date/Time: Relationship to Patient: Witness Name/Signature: Date/Time: [facility]08-30-2023 Emergency department Discharge summary Discharge Instructions Thank you for allowing [facility] to assist you with your healthcare needs. The following is importantdischarge information regarding your hospital visit. Diagnosis from Today's Visit Abdominal pain What to Do Next Instructions from Your Care Team No qualifying data available. Post Acute Orders No qualifying data available. You Need to Schedule the Following Appointments Follow Up with AARON DUQUE When Within 2-4 days Where: [address] [facility] [place] [address]- [phone] Business (1) Follow Up with NONE PHYSICIAN [...] chest, arm, back, neck or jaw pain [phone] [employer]. [address] [place] [address]. All rights reserved. This information is not intended as a substitute for professional medical care. Always follow yourhealthcare professional's instructions. Additional Information VACCINATE! IT SAVES LIVES! Members of the community who have not yet received the COVID-19 vaccine and would like to receive it can visit one of [facility] vaccine clinics. There are many vaccine clinic locations within the [facility]. For locations and available times, please visit www.gettheshot.coronavirus.[place].gov/. It is important to note that some COVID mobile vaccine clinics are held outdoors and may be canceled in rainy or stormy conditions. To learn more about pediatric vaccinations (ages 5-11), we invite you to visit the [facility] webpage. https://www.[facility].org/pages/5401-Jwvaq-Acxnclxzvsv-Kdabxrbawa-Vekiy-Yhu stions.htmlTo learn more about the COVID-19 vaccine, we invite you to visit the CDC website for a list of frequently asked questions. https://www.cdc.gov/coronavirus/2019-ncov/vaccines/faq.html [facility] [employer] Patient Portal Access Instructions: Stay connected with your healthcare team and access your personal medical information anytime with the [facility] [employer] Patient Portal. If you would like a full copy of your medical records please contact the [facility] Medical Records Department Friday through Friday between 8a.m. and 4:30p.m. Please follow the directions below to access the portal: 1.Access the email account you provided upon registration to the [facility].2.Look for an invitation email from [facility].3.Open the email and access the invitation link: Accept Invitation to [employer]4.Fill in the required vegas to create your account. Sign into [email or web address] with your username and password that you [...] you will allow to register on the [employer] Patient Portal for access to your information. You can also access the [employer] Patient Portal on the [employer]. Simply click on Health Records under [employer]Made[employer] and then click on the Xeround logo. HOW TO SAFELY DISPOSE OF PRESCRIPTION [...] Call your local pharmacy or go to [email or web address]://[email or web address] to find one close to you.3.Make use of household items: Use cat litter or old coffee grounds to dispose medications if other options arenot available. Mix your drugs with these household products, seal them in an airtight container andthrow it into the garbage. Call [facility]: [phone] to be sure your drugs can be [...] aware that I should contact my doctor. Patient/Ballet Professor Signature: Date/Time: Relationship to Patient: Witness Name/Signature: Date/Time: [facility]08-30-2023 Note ORIGINAL EXAMINATION: CT OF THE [...] Date: 02/12/2023 8:10:54 PM Ordering Provider: [facility]08-30-2023 Note Sinus rhythm RSR' in V1 or V2, probably normal variant Baseline wander in lead(s) II,III,aVF,V2 Compared to ECG at 03/08/2018 23:11:38 BORDERLINE ECG Electronic Signature: ANJEL PEÑA DO 02/12/2023 17:53:40[facility] 05-16-2023 NoteORIGINAL PROCEDURE: Fluoroscopic drainage catheter evaluation (Abscessogram) performed on 10/28/2022. INDICATION: LLQ seroma s/p drain and sclerosis. The patient reports minimal drainage recently. COMPARISON: 10/21/2022. TECHNIQUE/FINDINGS: The procedure was performed in the VIR Suite with the patient in the supine position. A workforce investment act career manager image demonstrated position of the existing percutaneous [...] Sign Date: 10/29/2022 10:35:26 AM Ordering Provider: [facility] ([place]) 10-29-2022 NoteORIGINAL PROCEDURE: Ultrasound guided percutaneous drainage [...] Sign Date: 10/29/2022 10:32:48 AM Ordering Provider: [facility] ([place])10-28-2022 History and physical note IR PREPROCEDURE H&P [...] 10/10/2022 and can be found in the [facility] Electronic Medical Records ([facility]). Roshni Flores PA-C Interventional Radiology Pager [phone] IR Dept [id number] [facility] on [facility] Digitally Signed by ROSHNI FLORES PA-C on 10/28/2022 05:27 PM [id number] Note* Farrah Mcallister RN: SIGN, AUTHOR, SIGN, AUTHOR, PERFORM Event Display: IR Procedure Record Authored Date: [id number] IR Procedure Record Summary Primary Physician: Finalized Date/Time: 10/28/22 15:00:43 Pt. Name: PATRICK KOROMA/Sex: 1980 Male Med Rec #: [id number] Physician: Financial #: [id number] Pt. Type: O Room/Bed: / Admit/Disch: 10/28/22 [...] Entry 3 Case Attendee ESAU LOVE MD Grounds And Nursery Specialist VanessaBrandie gray Grounds And Nursery Specialist Role Performed Radiologist Procedure Scrub Technologist Circulating [...] Case Attendee Farrah Mcallister RN Role Performed Powder Cutting Operator 1 Details Time In 10/28/22 14:40:00 Time [...] mL Medication OMNIPAQUE 300 50ML 10/PK Y-530 [facility] [id number] Radiology Flouroscopy Fluoroscopy Used? Yes Fluoro Dose [...] images and Vanessa Celeste, results are properly Terra Devang Sellers, labeled and Farrah Mcallister RN appropriately [...] Radiology - Action Plan Outcomes Met? Yes Tensioning Machine Operator Farrah Mcallister RN Completing Procedure Plan Last Modified By: Farrah Mcallister RN 10/28/22 14:51:12 Case Comments <None> Finalized By: Farrah Mcallister RN Document Signatures Signed By: Farrah Mcallister RN 10/28/22 14:58 Farrah Mcallister RN 10/28/22 15:00 [facility] 05-15-2023 Hospital Discharge instructions Patient Education 10/28/2022 14:57:53 Radiology- Procedure/Biopsy 09/29/2019 (CUSTOM) [place] Radiology Procedure/Biopsy Discharge Instructions Interventional Radiology [facility] [address] [address] Today, you had a . This procedure/biopsy [...] 1 to 2 days following the procedure. Xsrv-mzj-sbgwzqz pain medication should be used for pain [...] instruction below: 8:00 am- 5:00 pm call [phone] After 5:00 pm call [phone] After 24 hours, contact the physician who [...] with primary care provider Address:Unknown When: Unknown [facility] 05-15-2023 Note IR Procedure Record Summary Primary Physician: Finalized Date/Time: 10/28/22 15:00:43 Pt. Name: PATRICK KOROMA/Sex: 1980 Male Med Rec #: [id number] Physician: Financial #: [id number] Pt. Type: O Room/Bed: / Admit/Disch: 10/28/22 [...] 2 Entry 3 Case Attendee [facility]U [facility] Grounds And Nursery Specialist Vanessa, Brandie Remy Grounds And Nursery Specialist Role Performed Radiologist Procedure Scrub Technologist Circulating Technologist Details Time In 10/28/22 14:52:00 10/28/22 14:40:00 10/28/22 14:40:00 Time Out 10/28/22 15:02:00 10/28/22 15:02:00 10/28/22 15:02:00 Procedure/Preference IR Drainage Cath IR Drainage Cath IR Drainage Cath Card Removal Fluoro Guide SN Removal Fluoro Guide SN Removal Fluoro Guide SN Last Modified By: Farrah Mcallister RN, Brittaney RN Farrah Mcallister RN 10/28/22 14:58:01 10/28/22 14:58:01 10/28/22 14:58:01 Entry 4 Case Attendee Farrah Mcallister RN Role Performed Powder Cutting Operator 1 Details Time In 10/28/22 14:40:00 Time [...] mL Medication OMNIPAQUE 300 50ML 10/PK Y-530 [facility] [id number] Radiology Flouroscopy Fluoroscopy Used? Yes Fluoro Dose [...] images and Vanessa Celeste, results are properly Terra Devang Sellers, labeled and Farrah Mcallister RN appropriately [...] Radiology - Action Plan Outcomes Met? Yes Tensioning Machine Operator Farrah Mcallister RN Completing Procedure Plan Last Modified By: Farrah Mcallister RN 10/28/22 14:51:12 Case Comments Finalized By: Farrah Mcallister RN Document Signatures Signed By: Farrah Mcallister RN 10/28/22 14:58 Farrah Mcallister RN 10/28/22 15:00 [id number] Summary of episode note Discharge Instructions Thank you for allowing [facility] to assist you with your healthcare needs. [...] medication providers or retail pharmacies. Education Materials [place] Radiology Procedure/Biopsy Discharge Instructions Interventional Radiology [facility] [address] [place] [address] Today, you had a . This procedure/biopsy [...] 1 to 2 days following the procedure. Wmtp-ivu-oewjjag pain medication should be used for pain [...] instruction below: 8:00 am- 5:00 pm call [phone] After 5:00 pm call [phone] After 24 hours, contact the physician who [...] to receive it can visit one of [facility] vaccine clinics. There are many vaccine clinic locations within the [facility]. For locations and available times, please visit https://gettheshot.coronavirus.[place].gov/. It is important to note that some COVID mobile vaccine clinics are held outdoors and may be canceled in rainy or stormy conditions. To learn more about pediatric vaccinations (ages 5-11), we invite you to visit the [facility] webpage. https://www.[facility].org/pages/2717-Ylmgv-Liaficjjheb-Isesqblasf-Mggax-Azv stions.htmlTo learn more about the COVID-19 vaccine, we invite you to visit the CDC website for a list of frequently asked questions.https://www.cdc.gov/coronavirus/2019-ncov/vaccines/faq.html [facility] [employer] Patient Portal Access Instructions: Stay connected with your healthcare team and access your personal medical information anytime with the [facility] Patient Portal. Please follow the directions below to create your [employer] account: 1.Access the email account you provided upon registration to the hospital/physician office.2.Look for an invitation email from [facility].3.Open the email and access the invitation link: AcceptInvitation to [employer].4.Fill in the required vegas to create your account. To access your account, visit [email or web address]. Click the blue button labeled Access Patient [...] who you will allowto register on the [facility] for access to your information. You can also access the [facility] Portal on the [facility] yen. Simply click on Patient Portal and then log into your account. If you would like to receive a full copy of your medical records, please contact the [facility] Medical Records Department by calling [phone], Friday through Friday between 8 a.m. and [...] Call your local pharmacy or go to [email or web address] [email or web address] to find one close to you.3.Make use of household items: Use cat litter or old coffee grounds to dispose medications if other options arenot available. Mix your drugs with these household products, seal them in an airtight container andthrow it into the garbage. Call [facility]: [phone] to be sure your drugs can be [...] aware that I should contact my doctor. Patient/Ballet Professor Signature: Date/Time: Relationship to Patient: Witness Name/Signature: Date/Time: [id number] Evaluation + Plan noteExtracted from: Title:Preprocedure HP [...] 10/10/2022 and can be found in the [facility] ([facility]). Roshni lFores PA-C Interventional Radiology Pager [phone] IR Dept [id number] Available on Detectentt Future Scheduled Tests Laboratory* Basic Metabolic Panel 11/23/21 * Carbamazepine Level 11/23/21 * Complete Metabolic Panel 11/23/21 [facility] 05-15-2023 Hospital Discharge instructions Patient Education [...] come back to this facility in person. 1003-6252 [employer]. [address] [place] [address], [place] [address]. All rights reserved. This information is not intended as a substitute for professional medical care. Always follow yourhealthcare professional's instructions. Follow Up Care 10/28/2022 01:29:29 With:The IR department at [facility] Address:Unknown When:Within 1 Day(s) Comments:Follow-up as scheduled later today to have the drain removed.Return to the ED for any problems or concerns. [facility] 05-15-2023 Note Discharge Instructions Thank you for allowing [facility] to assist you with your healthcare needs. The following is importantdischarge information regarding your hospital visit. Diagnosis from Today's Visit Drain Problem Drain leakage What to Do Next Instructions from Your Care Team No qualifying data available. Post Acute Orders No qualifying data available. You Need to Schedule the Following Appointments Follow Up with The IR department at [facility] When In 1 day Why: Follow-up [...] come back to this facility in person. 0434-4529 [employer]. [address] [place] [address]. All rights reserved. This information is not intended as a substitute for professional medical care. Always follow your[facility] hospitalcare professional's instructions. Additional Information VACCINATE! IT SAVES LIVES! Members of the community who have not yet received the COVID-19 vaccine and would like to receive it can visit one of [facility] vaccine clinics. There are many vaccine clinic locations within the [facility]. For locations and available times, please visit www.gettheshot.coronavirus.[place].gov/. It is important to note that some COVID mobile vaccine clinics are held outdoors and may be canceled in rainy or stormy conditions. To learn more about pediatric vaccinations (ages 5-11), we invite you to visit the [facility] webpage. https://www.[facility].org/pages/5488-Rvwup-Ihigkkmznul-Jjqmbzegrf-Zufcd-Ena stions.htmlTo learn more about the COVID-19 vaccine, we invite you to visit the CDC website for a list of frequently asked questions. https://www.cdc.gov/coronavirus/2019-ncov/vaccines/faq.html [facility] Patient Portal Access Instructions: Stay connected with your healthcare team and access your personal medical information anytime with the [facility] Patient Portal. If you would like a full copy of your medical records please contact the [facility] Medical Records Department Friday through Friday between 8a.m. and 4:30p.m. Please follow the directions below to access the portal: 1.Access the email account you provided upon registration to the [facility].2.Look for an invitation email from [facility].3.Open the email and access the invitation link: Accept Invitation to [facility] [employer]4.Fill in the required vegas to create your account. Sign into www.[email or web address] with your username and password that you [...] you will allow to register on the [employer] Patient Portal for access to your information. You can also access the [employer] Patient Portal on the [employer]. Simply click on Health Records under MadeiraMadeira and then click on the Wandy logo. [...] Call your local pharmacy or go to http://bit.ly/7L4Ln3x to find one close to you.3.Make use of household items: Use cat litter or old coffee grounds to dispose medications if other options arenot available. Mix your drugs with these household products, seal them in an airtight container andthrow it into the garbage. Call [facility]: [phone] to be sure your drugs can be [...] aware that I should contact my doctor. Patient/Ballet Professor Signature: Date/Time: Relationship to Patient: Witness Name/Signature: Date/Time: [facility]05-15-2023 Note Discharge Instructions Thank you for allowing [facility] to assist you with your healthcare needs. The following is importantdischarge information regarding your hospital visit. Diagnosis from Today's Visit Drain Problem Drain leaking What to Do Next Instructions from Your Care Team No qualifying data available. Post Acute Orders No qualifying data available. You Need to Schedule the Following Appointments Follow Up with The IR department at [facility] When In 1 day Why: Follow-up [...] come back to this facility in person. [phone] [employer]. [address] [place] [address], [place] [address]. All rights reserved. This information is not intended as a substitute for professional medical care. Always follow yourhealthcare professional's instructions. Additional Information VACCINATE! IT SAVES LIVES! Members of the community who have not yet received the COVID-19 vaccine and would like to receive it can visit one of [facility] vaccine clinics. There are many vaccine clinic locations within the [facility]. For locations and available times, please visit www.gettheshot.coronavirus.[place].gov/. It is important to note that some COVID mobile vaccine clinics are held outdoors and may be canceled in rainy or stormy conditions. To learn more about pediatric vaccinations (ages 5-11), we invite you to visit the [employer] webpage. https://www.[employer].org/pages/7719-Wyemk-Yurvuauwepq-Hncllawmwq-Qzmcu-Lhg stions.htmlTo learn more about the COVID-19 vaccine, we invite you to visit the CDC website for a list of frequently asked questions. https://www.cdc.gov/coronavirus/2019-ncov/vaccines/faq.html [facility] [employer] Patient Portal Access Instructions: Stay connected with your healthcare team and access your personal medical information anytime with the [employer] Patient Portal. If you would like a full copy of your medical records please contact the [facility] Medical Records Department Friday through Friday between 8a.m. and 4:30p.m. Please follow the directions below to access the portal: 1.Access the email account you provided upon registration to the [facility].2.Look for an invitation email from [facility].3.Open the email and access the invitation link: Accept Invitation to [employer]4.Fill in the required vegas to create your account. Sign into www.Vivox with your username and password that you [...] you will allow to register on the [facility] Patient Portal for access to your information. You can also access the [facility] Patient Portal on the [employer] yen. Simply click on Health Records under MadeiraMadeira and then click on the Xeround logo. HOW TO SAFELY DISPOSE OF PRESCRIPTION [...] Call your local pharmacy or go to http://[employer].[email or web address] to find one close to you.3.Make use of household items: Use cat litter or old coffee grounds to dispose medications if other options arenot available. Mix your drugs with these household products, seal them in an airtight container andthrow it into the garbage. Call [facility]: [phone] to be sure your drugs can be [...] aware that I should contact my doctor. Patient/Ballet Professor Signature: Date/Time: Relationship to Patient: Witness Name/Signature: Date/Time: [facility]05-15-2023 Note Discharge Instructions Thank you for allowing [facility] to assist you with your healthcare needs. The following is importantdischarge information regarding your hospital visit. Diagnosis from Today's Visit Drain Problem Drain leaking What to Do Next Instructions from Your Care Team No qualifying data available. Post Acute Orders No qualifying data available. You Need to Schedule the Following Appointments Follow Up with The IR department at [facility] When In 1 day Why: Follow-up [...] come back to this facility in person. [phone] [employer]. [address] [place] [address], [place] [address]. All rights reserved. This information is not intended as a substitute for professional medical care. Always follow yourhealthcare professional's instructions. Additional Information VACCINATE! IT SAVES LIVES! Members of the community who have not yet received the COVID-19 vaccine and would like to receive it can visit one of [facility] vaccine clinics. There are many vaccine clinic locations within the [facility]. For locations and available times, please visit www.gettheshot.coronavirus.[place].gov/. It is important to note that some COVID mobile vaccine clinics are held outdoors and may be canceled in rainy or stormy conditions. To learn more about pediatric vaccinations (ages 5-11), we invite you to visit the [facility] webpage. https://www.[facility].org/pages/5308-Yloqu-Hfownezoyif-Rijpvkilyv-Qbfvz-Nhd stions.htmlTo learn more about the COVID-19 vaccine, we invite you to visit the CDC website for a list of frequently asked questions. https://www.cdc.gov/coronavirus/2019-ncov/vaccines/faq.html [employer] Patient Portal Access Instructions: Stay connected with your healthcare team and access your personal medical information anytime with the [employer] Patient Portal. If you would like a full copy of your medical records please contact the [facility] Medical Records Department Friday through Friday between 8a.m. and 4:30p.m. Please follow the directions below to access the portal: 1.Access the email account you provided upon registration to the [facility].2.Look for an invitation email from [facility].3.Open the email and access the invitation link: Accept Invitation to [employer]4.Fill in the required vegas to create your account. Sign into www.Vivox with your username and password that you [...] you will allow to register on the [employer] Patient Portal for access to your information. You can also access the [employer] Patient Portal on the [employer]. Simply click on Health Records under MadeiraMadeira and then click on the Xeround logo. HOW TO SAFELY DISPOSE OF PRESCRIPTION [...] Call your local pharmacy or go to http://bit.[email or web address] to find one close to you.3.Make use of household items: Use cat litter or old coffee grounds to dispose medications if other options arenot available. Mix your drugs with these household products, seal them in an airtight container andthrow it into the garbage. Call [facility]: [phone] to be sure your drugs can be [...] aware that I should contact my doctor. Patient/Ballet Professor Signature: Date/Time: Relationship to Patient: Witness Name/Signature: Date/Time: [facility]05-08-2023 Evaluation + Plan noteExtracted from: Title:Preprocedure HP [...] 10/10/2022 and can be found in the [facility] ([facility]). Roshni Flores PA-C Interventional Radiology Pager [phone] IR Dept [id number] Available on cortext Future Appointments Appointment Date:10/28/2022 01:00:00 PM Scheduled Provider: Location:IR Appointment Type:IR Drainage Cath Injection for Eval Future Scheduled Tests Laboratory* Basic Metabolic Panel 11/23/21 * Carbamazepine Level 11/23/21 * Complete Metabolic Panel 11/23/21 [facility] 05-08-2023 Note* Farrah Mcallister RN: SIGN, AUTHOR, SIGN, AUTHOR, SIGN, AUTHOR, PERFORM Event Display: IR Procedure Record Authored Date: [id number] IR Procedure Record Summary Primary Physician: Finalized Date/Time: 10/21/22 10:43:31 Pt. Name: PATRICK KOROMA/Sex: 1980 Male Med Rec #: [id number] Physician: Financial #: [id number] Pt. Type: O Room/Bed: / Admit/Disch: 10/21/22 [...] Attendee ESAU LOVE MD, Brittaney RN [employer] ExpoPromoter Suzie Remy Role Performed Radiologist Procedure Powder Cutting Operator 1 Scrub Technologist Details Time In 10/21/22 10:25:00 10/21/22 09:58:00 10/21/22 09:58:00 Time Out 10/21/22 10:38:00 10/21/22 10:38:00 10/21/22 10:38:00 Procedure/Preference IR Sclerotherapy SN IR Sclerotherapy SN IR Sclerotherapy SN Card Last Modified By: Farrah Mcallister RN, Brittaney RN Magee, Brittaney RN 10/21/22 10:38:11 10/21/22 10:38:11 10/21/22 10:38:11 Entry 4 Case Attendee Allie Grounds And Nursery SpecialistVerito Siddiqi Role Performed Circulating Technologist Details Time [...] Radiology - Action Plan Outcomes Met? Yes Tensioning Machine Operator Farrah Mcallister RN Completing Procedure Plan Last [...] 10/21/22 10:38 Farrah Mcallister RN 10/21/22 10:43 [facility] 05-08-2023 Note IR Procedure Record Summary Primary Physician: Finalized Date/Time: 10/21/22 10:43:31 Pt. Name: PATRICK KOROMA /Sex: 1980 Male Med Rec #: [id number] Physician: Financial #: [id number] Pt. Type: O Room/Bed: / Admit/Disch: 10/21/22 [...] Attendee ESAU LOVE MD, Brittaney RN [employer] ExpoPromoter Suzie Remy Role Performed Radiologist Procedure Powder Cutting Operator 1 Scrub Technologist Details Time In 10/21/22 10:25:00 10/21/22 09:58:00 10/21/22 09:58:00 Time Out 10/21/22 10:38:00 10/21/22 10:38:00 10/21/22 10:38:00 Procedure/Preference IR Sclerotherapy SN IR Sclerotherapy SN IR Sclerotherapy SN Card Last Modified By: Farrah Mcallister RN, Brittaney RN Magee, Brittaney RN 10/21/22 10:38:11 10/21/22 10:38:11 10/21/22 10:38:11 Entry 4 Case Attendee Allie Grounds And Nursery SpecialistVerito Siddiqi Role Performed Circulating Technologist Details Time [...] results are properly Suzie Remy, Sky Kelley labeled and Tech Мария L appropriately displayed, [...] Radiology - Action Plan Outcomes Met? Yes Tensioning Machine Operator Farrah Mcallister RN Completing Procedure Plan Last Modified By: Farrah Mcallister RN 10/21/22 10:06:38 Transfer Post Procedure- IR Entry 1 RAD - Transport to Recovery Via Ambulatory Post-op Destination Receiving Transported By Sky Kelley Мария L Post Procedure Time Out Double Verification Yes Date/Time Verified 10/21/22 10:37:00 of ID band on patient Completed Verfied ID Band on Farrah Mcallister RN by Last Modified By: Farrah Mcallister RN 10/21/22 10:38:07 Case Comments Finalized By: Farrah Mcallister RN Document Signatures Signed By: Farrah Mcallister RN 10/21/22 10:38 Farrah Mcallister RN 10/21/22 10:38 Farrah Mcallister RN 10/21/22 10:43 [id number] History and physical note IR PREPROCEDURE H&P [...] 10/10/2022 and can be found in the [facility] ([facility]). Roshni Flores PA-C Interventional Radiology Pager [phone] IR Dept [id number] [facility] Digitally Signed by ROSHNI FLORES PA-C on 10/21/2022 09:38 AM Digitally Signed by ESAU LOVE MD on 10/21/2022 10:20 AM [id number] Note* Juliocesar Mo Grounds And Nursery Specialist: SIGN, AUTHOR, PERFORM Event Display: IR Procedure Record Authored Date: [id number] IR Procedure Record Summary Primary Physician: RAMIN SAMPSON MD Finalized Date/Time: 09/12/22 14:34:18 Pt. Name: PATRICK KOROMA/Sex: 1980 Male Med Rec #: [id number] Physician: Financial #: [id number] Pt. Type: O Room/Bed: / Admit/Disch: 09/12/22 12:58:00 - Institution: Allergies identified in patient's electronic medical record at time of printing on 09/12/22 Entry 1 Entry 2 Entry 3 Substance Keflex Keppra Tape, Paper Reaction Type Allergy Allergy Side Effect Last Modified By: Izabel Small RN, RN Anne E KINDBOM, RN JANE 10/31/16 23:03:04 08/10/13 02:23:55 03/10/14 02:36:21 Entry 4 Entry 5 Substance morphine naproxen Reaction Type Allergy Allergy Last Modified By: IBETH Skelton RN James M 08/10/13 02:22:39 09/05/17 22:20:56 Case Attendance- IR Entry 1 Entry 2 Entry 3 Case Attendee RAMIN SAMPSON MD, Alexis Tech Fierstos, Megan R Grounds And Nursery Specialist Role Performed Primary Surgeon Scrub Technologist Circulating Technologist Details Time In 09/12/22 14:14:00 09/12/22 14:10:00 09/12/22 14:10:00 Time Out 09/12/22 14:30:00 09/12/22 14:30:00 09/12/22 14:30:00 Procedure/Preference IR Drainage Cath IR Drainage Cath IR Drainage Cath Card Injection for Eval SN Injection for Eval SN Injection for Eval SN Last Modified By: Juliocesar Mo Rad Juliocesar Mo Rad Juliocesar Mo R Grounds And Nursery Specialist 09/12/22 14:30:28 Tech 09/12/22 14:30:28 Tech 09/12/22 14:30:28 Entry 4 Case Attendee Brandie Mendez Grounds And Nursery Specialist Role Performed Powder Cutting Operator 1 Details Time In 09/12/22 14:10:00 Time Out 09/12/22 14:30:00 Procedure/Preference IR Drainage Cath Card Injection for Eval SN Last Modified By: Juliocesar Mo Grounds And Nursery Specialist 09/12/22 14:30:28 Radiology Procedures- IR Entry 1 Procedure/Preference IR Drainage Cath Actual Procedure ir drain cath inj for Card Injection for Eval SN eval sn Primary Procedure Yes Primary Surgeon RAMIN SAMPSON MD Anesthesia/Sedation None Type Additional Procedure Times Start 09/12/22 14:14:00 Stop 09/12/22 14:25:00 Specialty Service SN Radiology Procedure EBL 0 mL Last Modified By: Juliocesar Mo R Grounds And Nursery Specialist 09/12/22 14:30:33 Radiology Procedure Details - IR Entry 1 Radiology Sedation Case Times Sedation Total Time 0 Radiology - Fluid/Drainage Radiology Contrast Contrast Used? Yes Dose 10 mL Medication OMNIPAQUE 300 50ML 10/PK Y-530 [facility] 4588-4472-27 Radiology Flouroscopy Fluoroscopy Used? Yes Fluoro Dose [...] the drain. Last Modified By: Juliocesar Mo ExpoPromoter 09/12/22 14:34:10 General Case Data - IR Entry 1 Case Information Room AH IR 18 Case Level IR Level 2 Wound Class None Specialty SN Radiology Procedure ASA Class None Diagnosis Preop Diagnosis LLQ Seroma Postop Same As Preop Yes Postop Diagnosis LLQ Seroma Last Modified By: Juliocesar Mo Zeo 09/12/22 14:17:00 Procedure Case Times- IR Entry 1 Patient In Procedure Patient In OR 09/12/22 14:10:00 Patient Out of OR 09/12/22 14:30:00 Procedure Start/Stop Procedure Start Time 09/12/22 14:14:00 Procedure Stop Time 09/12/22 14:25:00 Last Modified By: Juliocesar Mo Zeo 09/12/22 14:30:24 Immediate Post Procedure Note - IR Entry 1 Immediate Post Yes Findings Successful drain cath Procedure Note sclerosis w/ etoh 9 ml displayed for Physician to review Closure Technique Closure Technique Other than Primary Last Modified By: Juliocesar Mo R ExpoPromoter 09/12/22 14:30:14 Immediate Post Procedure Note - IR Signed By: RAMIN SAMPSON MD 09/12/22 14:27 Allergy Information- IR Entry 1 Allergies Reviewed? Yes Allergies Reviewed Patient With Last Modified By: Juliocesar Mo Zeo 09/12/22 14:12:52 Radiology Protocols/Time Out- IR Entry [...] results are properly Tech, Vanessa, labeled and Pagidocesar Devang Grounds And Nursery Specialist appropriately displayed, Alcohol based prep dry Instrument Sterility Team Members Vadim Berrios Verifying Sterility Procedure IR Drainage Cath Injection for Eval SN Last Modified By: Juliocesar Mo Grounds And Nursery Specialist 09/12/22 14:15:05 Skin Prep- IR Entry 1 Procedure IR Drainage Cath Injection for Eval SN Skin Prep Prep Area Abdomen Side Left By Vadim Berrios Prep Agents Chloraprep Hair Removal Method N/A Last Modified By: Juliocesar Mo Grounds And Nursery Specialist 09/12/22 14:15:32 Patient Positioning- IR Entry 1 Procedure IR Drainage Cath Body Position OP Supine Injection for Eval SN Feet Uncrossed? Yes Pressure Points n/a Checked Last Modified By: Juliocesar Mo Grounds And Nursery Specialist 09/12/22 14:15:44 Radiology Procedure Plan - IR [...] symptoms of electrical injury. Outcomes Met? Yes Tensioning Machine Operator Juliocesar Mo Completing Tech Procedure Plan Last Modified By: Juliocesar Mo Grounds And Nursery Specialist 09/12/22 14:16:26 Case Comments <None> Finalized By: Juliocesar Mo Document Signatures Signed By: Juliocesar Mo ExpoPromoter 09/12/22 14:34 [facility] 03-30-2023 Hospital Discharge instructions Patient Education 09/12/2022 14:26:09 Radiology- Procedure/Biopsy 09/29/2019 (CUSTOM) [place] Radiology Procedure/Biopsy Discharge Instructions Interventional Radiology [facility] [address] [address] Today, you had a . This procedure/biopsy [...] 1 to 2 days following the procedure. Recp-puu-zyqavtz pain medication should be used for pain [...] instruction below: 8:00 am- 5:00 pm call [phone] After 5:00 pm call [phone] After 24 hours, contact the physician who [...] with primary care provider Address:Unknown When: Unknown [facility] 03-30-2023 Interventional radiology Progress note IR [...] MARSHALL CROCKER PA-C on 09/12/2022 04:08 PM [facility]Eawmdibx11-[facility]-3059 Note IR Procedure Record Summary Primary Physician: RAMIN SAMPSON MD Finalized Date/Time: 09/12/22 14:34:18 Pt. Name: PATRICK KOROMA Cesar SauerB./Sex: 1980 Male Med Rec #: [id number] Physician: Financial #: [id number] Pt. Type: O Room/Bed: / Admit/Disch: 09/12/22 [...] Juliocesar Mo Rad Juliocesar Mo Megan R Grounds And Nursery Specialist 09/12/22 14:30:28 Tech 09/12/22 14:30:28 Tech 09/12/22 14:30:28 Entry 4 Case Attendee Brandie Mendez Grounds And Nursery Specialist Role Performed Powder Cutting Operator 1 Details Time In 09/12/22 14:10:00 Time Out 09/12/22 14:30:00 Procedure/Preference IR Drainage Cath Card Injection for Eval SN Last Modified By: Juliocesar Mo Grounds And Nursery Specialist 09/12/22 14:30:28 Radiology Procedures- IR Entry 1 Procedure/Preference IR Drainage Cath Actual Procedure ir drain cath inj for Card Injection for Eval SN eval sn Primary Procedure Yes Primary Surgeon RAMIN SAMPSON MD Anesthesia/Sedation None Type Additional Procedure Times Start 09/12/22 14:14:00 Stop 09/12/22 14:25:00 Specialty Service SN Radiology Procedure EBL 0 mL Last Modified By: Juliocesar Mo Grounds And Nursery Specialist 09/12/22 14:30:33 Radiology Procedure Details - IR Entry 1 Radiology Sedation Case Times Sedation Total Time 0 Radiology - Fluid/Drainage Radiology Contrast Contrast Used? Yes Dose 10 mL Medication OMNIPAQUE 300 50ML 10/PK Y-530 [facility] 2490-5864-15 Radiology Flouroscopy Fluoroscopy Used? Yes Fluoro Dose [...] the drain. Last Modified By: Juliocesar Mo Grounds And Nursery Specialist 09/12/22 14:34:10 General Case Data - IR Entry 1 Case Information Room IR 18 Case Level IR Level 2 Wound Class None Specialty SN Radiology Procedure ASA Class None Diagnosis Preop Diagnosis LLQ Seroma Postop Same As Preop Yes Postop Diagnosis LLQ Seroma Last Modified By: Juliocesar Mo R Grounds And Nursery Specialist 09/12/22 14:17:00 Procedure Case Times- IR Entry 1 Patient In Procedure Patient In OR 09/12/22 14:10:00 Patient Out of OR 09/12/22 14:30:00 Procedure Start/Stop Procedure Start Time 09/12/22 14:14:00 Procedure Stop Time 09/12/22 14:25:00 Last Modified By: Juliocsear Mo R Grounds And Nursery Specialist 09/12/22 14:30:24 Immediate Post Procedure Note - IR Entry 1 Immediate Post Yes Findings Successful drain cath Procedure Note sclerosis w/ etoh 9 ml displayed for Physician to review Closure Technique Closure Technique Other than Primary Last Modified By: Juliocesar Mo R Grounds And Nursery Specialist 09/12/22 14:30:14 Immediate Post Procedure Note - IR Signed By: RAMIN SAMPSON MD 09/12/22 14:27 Allergy Information- IR Entry 1 Allergies Reviewed? Yes Allergies Reviewed Patient With Last Modified By: Juliocesar Mo R Grounds And Nursery Specialist 09/12/22 14:12:52 Radiology Protocols/Time Out- IR Entry [...] properly Tech, Vanessa, labeled and Terra L Grounds And Nursery Specialist appropriately displayed, Alcohol based prep dry Instrument Sterility Team Members Vadim Berrios Verifying Sterility Procedure IR Drainage Cath Injection for Eval SN Last Modified By: Juliocesar Mo R Grounds And Nursery Specialist 09/12/22 14:15:05 Skin Prep- IR Entry 1 Procedure IR Drainage Cath Injection for Eval SN Skin Prep Prep Area Abdomen Side Left By Craemer, Vadim Tech Prep Agents Chloraprep Hair Removal Method N/A Last Modified By: Juliocesar Mo ExpoPromoter 09/12/22 14:15:32 Patient Positioning- IR Entry 1 Procedure IR Drainage Cath Body Position OP Supine Injection for Eval SN Feet Uncrossed? Yes Pressure Points n/a Checked Last Modified By: Juliocesar Mo Grounds And Nursery Specialist 09/12/22 14:15:44 Radiology Procedure Plan - IR [...] symptoms of electrical injury. Outcomes Met? Yes Tensioning Machine Operator Juliocesar Mo Songfor Procedure Plan Last Modified By: Juliocesar Mo Tech 09/12/22 14:16:26 Case Comments Finalized By: Juliocesar Mo Document Signatures Signed By: Juliocesar Mo Grounds And Nursery Specialist 09/12/22 14:34 [id number] Summary of episode note Discharge Instructions Thank you for allowing [facility] to assist you with your healthcare needs. [...] medication providers or retail pharmacies. Education Materials [place] Radiology Procedure/Biopsy Discharge Instructions Interventional Radiology [facility] [address] [place] [address] Today, you had a . This procedure/biopsy [...] 1 to 2 days following the procedure. Dqgw-zqk-omkqstb pain medication should be used for pain [...] instruction below: 8:00 am- 5:00 pm call [phone] After 5:00 pm call [phone] After 24 hours, contact the physician who [...] to receive it can visit one of [facility] vaccine clinics. There are many vaccine clinic locations within the [facility]. For locations and available times, please visit https://[email or web address].[place].gov/. It is important to note that some COVID mobile vaccine clinics are held outdoors and may be canceled in rainy or stormy conditions. To learn more about pediatric vaccinations (ages 5-11), we invite you to visit the [facility] webpage. https://www.[facility].org/pages/3549-Sfbjc-Laxbapbghok-Nwxwglhrne-Giveu-Qmk stions.htmlTo learn more about the COVID-19 vaccine, we invite you to visit the CDC website for a list of frequently asked questions. https://www.cdc.gov/coronavirus/2019-ncov/vaccines/faq.html [facility] [employer] Patient Portal Access Instructions: Stay connected with your healthcare team and access your personal medical information anytime with the [employer] Patient Portal.If you would like a full copy of your medical records, please contact the [facility] Medical Records Department, Friday through Friday between 8a.m. and 4:30p.m. Please follow the directions below to access the portal: 1.Access the email account you provided upon registration to the hospital.2.Look for an invitation email from [facility].3.Open the email and access the invitation link: Accept Invitation to [employer]4.Fill in the required vegas to create your account. Sign into [email or web address] with your username and password that you [...] you will allow to register on the [facility] Patient Portal for access to your information. You can also access the [facility] Patient Portal on the [employer] yen. Simply click on Health Records under MadeiraMadeira and then click on the Xeround logo. HOW TO SAFELY DISPOSE OF PRESCRIPTION [...] Call your local pharmacy or go to [email or web address] to find one close to you.3.Make use of household items: Use cat litter or old coffee grounds to dispose medications if other options arenot available. Mix your drugs with these household products, seal them in an airtight container andthrow it into the garbage. Call [facility]: [phone] to be sure your drugs can be [...] and explained to me and I,GA PATRICK Guerrero understand my current condition and have read and understand these discharge instructions. I have received a written copy of the plan/instructions. If I have questions, I am aware that I should contact my doctor. Patient/Ballet Professor Signature: Date/Time: Relationship to Patient: Witness Name/Signature: Date/Time: [id number] Evaluation + Plan noteExtracted from: Title:IR pre [...] paper, which has been scanned into the [facility] PACS/RIS system. _ Future Scheduled Tests Laboratory* Basic Metabolic Panel 11/23/21 * Carbamazepine Level 11/23/21 * Complete Metabolic Panel 11/23/21 [facility] 03-30-2023 History and physical note IR [...] paper, which has been scanned into the [facility] PACS/RIS system. _ Digitally Signed by MARSHALL CROCKER PA-C on 09/12/2022 01:30 PM [id number] Evaluation + Plan noteExtracted from: Title:IR pre-procedure [...] 08/28/2022 and can be found in the [facility] Electronic Medical Records ([place]). Harriet Leonard PA-C Interventional Radiology Pager: [phone] IR dept: x [phone] [facility] Future [facility]ointments Appointment Date:09/12/2022 02:00:00 PM Scheduled Provider: Location:IR Appointment Type:IR Drainage Cath Injection for Eval Future Scheduled Tests Laboratory* Basic Metabolic Panel 11/23/21 * Carbamazepine Level 11/23/21 * Complete Metabolic Panel 11/23/21 [facility] 03-23-2023 Hospital Discharge instructions Patient Education 09/05/2022 11:49:33 Radiology- Procedure/Biopsy 09/29/2019 (CUSTOM) [place] Radiology Procedure/Biopsy Discharge Instructions Interventional Radiology [facility] [address] [place] [address] Today, you had a Drain insertion . [...] 1 to 2 days following the procedure. Caau-koo-jxveovy pain medication should be used for pain [...] instruction below: 8:00 am- 5:00 pm call [phone] After 5:00 pm call [phone] After 24 hours, contact the physician who [...] with primary care provider Address:Unknown When: Unknown [facility] 03-23-2023 Note* IBETH Regalado Riley: SIGN, AUTHOR, PERFORM Event Display: IR Procedure Record Authored Date: [id number] IR Procedure Record Summary Primary Physician: ROSHNI FLORES PA-C Finalized Date/Time: 09/05/22 11:48:45 Pt. Name: PATRICK KORMOA Cesar Marquez/Sex: 1980 Male Med Rec #: [id number] Physician: Financial #: [id number] Pt. Type: O Room/Bed: / Admit/Disch: 09/05/22 [...] Case Attendee ROSHNI FLORES Jacque M. Allen, Grounds And Nursery Specialist Tatyana ZARATE Role Performed Primary Surgeon Scrub [...] 4 Case Attendee IBETH Regalado Role Performed Powder Cutting Operator 1 Details Time In 09/05/22 11:21:00 Time [...] ZARATE Jacque Relevant images and Fermín Mejía Grounds And Nursery Specialist results are properly Sabine Joe RN Corey [...] Radiology - Action Plan Outcomes Met? Yes Tensioning Machine Operator IBETH Regalado Completing Procedure Plan Last Modified By: IBETH Regalado 09/05/22 11:26:48 Case Comments <None> Finalized By: IBETH Regalado Document Signatures Signed By: IBETH Regalado 09/05/22 11:48 [facility] 03-23-2023 History and physical note IR [...] 08/28/2022 and can be found in the [facility] Electronic [facility] Records ([facility]). Harriet Leonard PA-C Interventional Radiology Pager: [phone] IR dept: x [phone] Available on [employer] Digitally Signed by HARRIET LEONARD PA-C on 09/05/2022 11:54 AM Digitally Signed by ESAU LOVE MD on 09/05/2022 03:20 PM [id number] Summary of episode note Discharge Instructions Thank you for allowing [facility] to assist you with your healthcare needs. [...] medication providers or retail pharmacies. Education Materials [place] Radiology Procedure/Biopsy Discharge Instructions Interventional Radiology [facility] [address] [place] [address] Today, you had a Drain insertion . [...] 1 to 2 days following the procedure. Vuak-swg-etwqdva pain medication should be used for pain [...] instruction below: 8:00 am- 5:00 pm call [phone] After 5:00 pm call [phone] After 24 hours, contact the physician who [...] to receive it can visit one of [facility] vaccine clinics. There are many vaccine clinic locations within the [facility]. For locations and available times, please visit https://[email or web address].[place].gov/. It is important to note that some COVID mobile vaccine clinics are held outdoors and may be canceled in rainy or stormy conditions. To learn more about pediatric vaccinations (ages 5-11), we invite you to visit the [facility] webpage. https://www.[facility].org/pages/4067-Lohpo-Rnjaexaghyx-Qpmllavzts-Gvsdx-Bxq stions.htmlTo learn more about the COVID-19 vaccine, we invite you to visit the CDC website for a list of frequently asked questions. https://www.cdc.gov/coronavirus/2019-ncov/vaccines/faq.html [employer] Patient Portal Access Instructions: Stay connected with your healthcare team and access your personal medical information anytime with the [facility] Patient Portal.If you would like a full copy of your medical records, please contact the [facility] Medical Records Department, Friday through Friday between 8a.m. and 4:30p.m. Please follow the directions below to access the portal: 1.Access the email account you provided upon registration to the hospital.2.Look for an invitation email from [facility].3.Open the email and access the invitation link: Accept Invitation to [employer]4.Fill in the required vegas to create your account. Sign into [email or web address] with your username and password that you [...] you will allow to register on the [facility] Patient Portal for access to your information. You can also access the [facility] Patient Portal on the [employer] yen. Simply click on Health Records under [employer] and then click on the Xeround logo. HOW TO SAFELY DISPOSE OF PRESCRIPTION [...] Call your local pharmacy or go to http://[employer] [facility]/[email or web address] to find one close to you.3.Make use of household items: Use cat litter or old coffee grounds to dispose medications if other options arenot available. Mix your drugs with these household products, seal them in an airtight container andthrow it into the garbage. Call [facility]: [phone] to be sure your drugs can be [...] aware that I should contact my doctor. Patient/Ballet Professor Signature: Date/Time: Relationship to Patient: Witness Name/Signature: Date/Time: [facility]qtnoqva49-47-5783 Note IR Procedure Record Summary Primary Physician: ROSHNI FLORES PA-C Finalized Date/Time: 09/05/22 11:48:45 Pt. Name: PATRICK KOROMA Cesar Marquez/Sex: 1980 Male Med Rec #: [id number] Physician: Financial #: [id number] Pt. Type: O Room/Bed: / Admit/Disch: 09/05/22 [...] Case Attendee ROSHNI FLORES Jacque M. Allen, Grounds And Nursery SpecialistVerito Joe PA-C Role Performed Primary Surgeon Scrub [...] 4 Case Attendee IBETH Regalado Role Performed Powder Cutting Operator 1 Details Time In 09/05/22 11:21:00 Time [...] Out Jus ZARATE Jacque Relevant images and MFermín Danielson Grounds And Nursery Specialist results are properly Sabine Joe RN Corey [...] Radiology - Action Plan Outcomes Met? 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 [address] [place] [address]. All rights reserved. This information is not intended as a substitute for professional medical care. Always follow yourhealthcare professional's instructions. Follow Up Care 08/28/2022 19:04:00 With:AARON DUQUE MD, Surgery Address: [address] [facility] [address] [place] [address]- [phone] When:2-4 days [facility] 03-15-2023 Emergency department Discharge summary Discharge Instructions Thank you for allowing [facility] to assist you with your healthcare needs. The following is importantdischarge information regarding your hospital visit. Diagnosis from Today's Visit Seroma Abdominal pain What to Do Next Instructions from Your Care Team No qualifying data available. Post Acute Orders No qualifying data available. You Need to Schedule the Following Appointments Follow Up with AARON DUQUE MD, Surgery When Within 2-4 days Where: [address] [facility] [address] [place] [address] [phone] Allergies Keflex Keppra (Rash) Tape, Paper (Rash) morphine (Rash) naproxen Medications Please ask your primary doctor or pharmacist before taking any other medication not listed, including over the counter drugs, herbal medications, vitamins and or supplements as they may interact withyour home medications. What How Much When Why Instructions Last Dose New acetaminophen-hydrocodone ([place] 325- 5 mg oral tablet) 1 tab(s) [...] up Rapid heart rate Shortness of breath 1510-6225 [employer]. [address] [place], [place] [address]. All rights reserved. This information is not intended as a substitute for professional medical care. Always follow yourhealthcare professional's instructions. Additional Information VACCINATE! IT SAVES LIVES! Members of the community who have not yet received the COVID-19 vaccine and would like to receive it can visit one of [facility] vaccine clinics. There are many vaccine clinic locations within the [facility]. For locations and available times, please visit www.gettheshot.coronavirus.[place].gov/. It is important to note that some COVID mobile vaccine clinics are held outdoors and may be canceled in rainy or stormy conditions. To learn more about pediatric vaccinations (ages 5-11), we invite you to visit the [facility] webpage. https://www.[facility].org/pages/7050-Yqfvq-Emlrbhgsdxc-Vqbwywzynn-Qfrhl-Qpk stions.htmlTo learn more about the COVID-19 vaccine, we invite you to visit the CDC website for a list of frequently asked questions. https://www.cdc.gov/coronavirus/2019-ncov/vaccines/faq.html [facility] Patient Portal Access Instructions: Stay connected with your healthcare team and access your personal medical information anytime with the [employer] Patient Portal. If you would like a full copy of your medical records please contact the [facility] Medical Records Department Friday through Friday between 8a.m. and 4:30p.m. Please follow the directions below to access the portal: 1.Access the email account you provided upon registration to the [facility].2.Look for an invitation email from [facility].3.Open the email and access the invitation link: Accept Invitation to [employer]4.Fill in the required vegas to create your account. Sign into [email or web address] with your username and password that you [...] you will allow to register on the [facility] Patient Portal for access to your information. You can also access the [facility] Patient Portal on the [employer] yen. Simply click on Health Records under [employer]iraMade[employer] and then click on the Xer[employer] logo. HOW TO SAFELY DISPOSE OF PRESCRIPTION [...] Call your local pharmacy or go to http://[employer])/2H8Ep9x to find one close to you.3.Make use of household items: Use cat litter or old coffee grounds to dispose medications if other options arenot available. Mix your drugs with these household products, seal them in an airtight container andthrow it into the garbage. Call [facility]: [phone] to be sure your drugs can be [...] aware that I should contact my doctor. 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 [address] [place] [address]. All rights reserved. This information is not intended as a substitute for professional medical care. Always follow yourhealthcare professional's instructions. Follow Up Care 08/18/2022 11:30:43 With:AARON DUQUE MD, Surgery Address: [address] [facility] [address] [facility] [place] [address] [phone] When:2-4 days [facility] 03-05-2023 Note ORIGINAL EXAMINATION: CT OF [...] 08/18/2022 4:08:21 PM Ordering Provider: JONELLE GERARD [id number] Emergency department Discharge summary Discharge Instructions Thank you for allowing [facility] to assist you with your healthcare needs. [...] [facility] [address] [place] [address] [phone] Allergies Keflex Keppra (Rash) Tape, Paper (Rash) morphine (Rash) naproxen Medications Please ask your primary doctor or pharmacist before taking any other medication not listed, including over the counter drugs, herbal medications, vitamins and or supplements as they may interact withyour home medications. What How Much When Why Instructions Last Dose New acetaminophen-hydrocodone ([place] 325- 5 mg oral tablet) 1 tab(s) [...] up Rapid heart rate Shortness of breath 2722-0854 [employer]. [address] [place] [address]. All rights reserved. This information is not intended as a substitute for professional medical care. Always follow yourhealthcare professional's instructions. Additional Information VACCINATE! IT SAVES LIVES! Members of the community who have not yet received the COVID-19 vaccine and would like to receive it can visit one of [facility] vaccine clinics. There are many vaccine clinic locations within the [facility]. For locations and available times, please visit www.gettheshot.coronavirus.[place].gov/. It is important to note that some COVID mobile vaccine clinics are held outdoors and may be canceled in rainy or stormy conditions. To learn more about pediatric vaccinations (ages 5-11), we invite you to visit the [facility] webpage. https://www.[facility].org/pages/9329-Kgssm-Zjrfnucfnks-Suetkbmmku-Pxtio-Pbp stions.htmlTo learn more about the COVID-19 vaccine, we invite you to visit the CDC website for a list of frequently asked questions. https://www.cdc.gov/coronavirus/2019-ncov/vaccines/faq.html [facility] Patient Portal Access Instructions: Stay connected with your healthcare team and access your personal medical information anytime with the [employer] Patient Portal. If you would like a full copy of your medical records please contact the [facility] Medical Records Department Friday through Friday between 8a.m. and 4:30p.m. Please follow the directions below to access the portal: 1.Access the email account you provided upon registration to the hospital.2.Look for an invitation email from [facility].3.Open the email and access the invitation link: Accept Invitation to [employer]4.Fill in the required vegas to create your account. Sign into [email or web address] with your username and password that you [...] you will allow to register on the [employer] Patient Portal for access to your information. You can also access the [employer] Patient Portal on the [employer]. Simply click on Health Records under MadeiraMade[employer] and then click on the W[employer] logo. [...] Call your local pharmacy or go to http://bit.[employer]/0S9Rb3z to find one close to you.3.Make use of household items: Use cat litter or old coffee grounds to dispose medications if other options arenot available. Mix your drugs with these household products, seal them in an airtight container andthrow it into the garbage. Call [facility]: [phone] to be sure your drugs can be [...] aware that I should contact my doctor. 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 You don t need a prescription. 3930-6475 [employer]. [address] [place] [address]. All rights reserved. This information is not intended as a substitute for professional medical care. Always follow yourhealthcare professional's instructions. Follow Up Care 07/22/2022 10:03:39 With:Call Physician Referral Address:Unknown When:2-4 days With:Follow up with primary care provider Address:Unknown When:2-4 days [facility] 02-06-2023 Note Discharge Instructions Thank you for allowing [facility] to assist you with your healthcare needs. [...] Why Instructions Last Dose Unchanged acetaminophen- hydrocodone (Millbrook 325- 5 mg oral tablet) 1 tab(s) [...] stores. You don t need a prescription. [id number] [employer], [employer]. [address] [place] [address], [place] [address]. All rights reserved. This information is not intended as a substitute for professional medical care. Always follow yourhealthcare professional's instructions. Additional Information VACCINATE! IT SAVES LIVES! Members of the community who have not yet received the COVID-19 vaccine and would like to receive it can visit one of [facility] vaccine clinics. There are many vaccine clinic locations within the [facility]. For locations and available times, please visit [email or web address]. It is important to note that some COVID mobile vaccine clinics are held outdoors and may be canceled in rainy orstormy conditions. To learn more about pediatric vaccinations (ages 5-11), we invite you to visit the [facility] webpage. [email or web address]/[email or web address] [email or web address].htmlTo learn more about the COVID-19 vaccine, we invite you to visit the [facility] website for a list of frequently asked questions. [email or web address] [facility] Patient Portal Access Instructions: Stay connected with your healthcare team and access your personal medical information anytime with the [facility] Patient Portal. If you would like a full copy of your medical records please contact the [facility] Medical Records Department Friday through Friday between 8a.m. and 4:30p.m. Please follow the directions below to access the portal: 1.Access the email account you provided upon registration to the [facility].2.Look for an invitation email from [facility].3.Open the email and access the invitation link: Accept Invitation to [facility]4.Fill in the required vegas to create your account. Sign into www.Vivox with your username and password that you [...] you will allow to register on the [facility] Patient Portal for access to your information. You can also access the [facility] Patient Portal on the [employer]. Simply click on Health Records under MadeiraMadeira and then click on the Xeround logo. HOW TO SAFELY DISPOSE OF PRESCRIPTION [...] Call your local pharmacy or go to [email or web address] to find one close to you.3.Make use of household items: Use cat litter or old coffee grounds to dispose medications if other options arenot available. Mix your drugs with these household products, seal them in an airtight container andthrow it into the garbage. Call [facility]: [phone] to be sure your drugs can be [...] aware that I should contact my doctor. 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 Blanco Shaw History of Present Illness 42-year-old male who underwent an open repair of a recurrent umbilical/ventral hernia with anteriorcomponent separation here at [facility] 4 days ago. The patient states that [...] He admits that he was taking his Millbrook on schedule every 6 hours and not [...] vomiting due to the regular use of Millbrook taking it as scheduled every 6 hours [...] works for him. Avoid using any further Millbrook unless absolutely necessary and take regular doses of Tylenol alternating with ibuprofen. As his nausea resolves hopefully over the next couple days he can reintroduce solid food. Slowly. He will have a follow-up on in the office. A prescription for Zofran has been sent to his pharmacy which he can knot picker cloth and use as needed. I donot think [...] Medications Inpatient No active inpatient medications Home Millbrook 325- 5 mg oral tablet, 1 tab(s), [...] AARON DUQUE MD on 07/22/2022 01:23 PM [facility]02-06-2023 Note ORIGINAL EXAMINATION: CT OF THE [...] Date: 07/22/2022 11:41:58 AM Ordering Provider: RADHA YI [facility]02-06-2023 Note ORIGINAL EXAMINATION: CT OF THE [...] Sign Date: 07/22/2022 11:41:58 AM Ordering Provider: [facility] Hospital Discharge instructions Patient Education 07/18/2022 [...] 06/21/2019 Document Revised: 06/21/2019 Document Reviewed: 06/21/2019 [employer]OrthAlign Patient Education 2019 [employer] 07/18/2022 11:53:21 How to Use an [...] as possible. If the spirometer includes a horse riding coach or instructor indicator, use this to guide you in [...] 10/13/2007 Document Revised: 06/25/2018 Document Reviewed: 04/15/2018 [employer]it Patient Education 2020 [employer]. 07/18/2022 11:45:57 Surgical Drain Home Care Surgical [...] placed at your back, or any other vyvu-fe-dkviw area, ask another person to assist you [...] and water are not available, use hand contact lens edge buffer. 3.Remove the old dressing. Avoid using scissors [...] and water are not available, use hand contact lens edge buffer. 3.Loosen any pins or clips that hold [...] placed at your back, or any other crdn-xj-ojnfk area, ask another person to assist you. Contact your health care provider if you have redness, swelling, or pain around your drain area. This information is not intended to replace advice given to you by your health care provider. Make sure you discuss any questions you have with your health care provider. Document Released: 05/30/2001 Document Revised: 07/07/2019 Document Reviewed: 07/07/2019 [employer]it Patient Education 2020 [employer]. 07/18/2022 11:45:56 8- Ryan Pantoja Drain (03/2018)(CUSTOM) [...] Document Reviewed: 06/03/2014 ExitCare Patient Information 2015 [employer]. This information is not intended to replace [...] garbage bag. Soap and water, or hand contact lens edge buffer. Wound cleanser or salt-water solution (saline). New [...] soap and water are notavailable, use hand contact lens edge buffer. 3.Set up a clean station for wound [...] soap and water are notavailable, use hand contact lens edge buffer. Clean your wound Wear gloves, protective clothing, [...] soap and water are notavailable, use hand contact lens edge buffer. Apply new dressing Wear gloves, protective clothing, [...] soap and water are notavailable, use hand contact lens edge buffer. 8.Turn the pump back on. The sponge dressing should collapse. Do not change the settings on the machine without talking to a health care provider. 9.Replace the container in the pump that collects fluid if it is full. Replace the container per the bowling ball patcher's instructions or at least once a week, [...] all clamps are open. Do not use hfjw-wxh-hmerhwc medicated or antiseptic creams, sprays, liquids, or [...] 08/24/2012 Document Revised: 09/24/2019 Document Reviewed: 08/20/2019 [employer]it Patient Education 2020 [employer]. 07/18/2022 11:39:25 Nausea and Vomiting, Adult Nausea [...] water added (diluted fruit juice). Eat bland, nbxq-db-nfjmjb foods in small amounts as you are able. These foods include bananas, applesauce, rice, lean meats, toast, and crackers. Avoid fluids that contain a lot of sugar or caffeine, such as energy drinks, sports drinks, and soda. Avoid alcohol. Avoid spicy or fatty foods. General instructions Take fmmm-tid-cudocug and prescription medicines only as told by your health care provider. Drink enough fluid to keep your urine pale yellow. Wash your hands often using soap and water. If soap and water are not available, use hand contact lens edge buffer. Make sure that all people in your [...] eating and drinking to prevent dehydration. Take ocxo-yua-czfqcyi and prescription medicines only as told by [...] 06/02/2006 Document Revised: 09/24/2019 Document Reviewed: 11/10/2018 [employer]it Patient Education 2020 [employer]. 07/18/2022 11:39:15 Monitored Anesthesia Care, Care After [...] before eating solid foods. General instructions Take mhpv-kmg-rzinpgc and prescription medicines only as told by [...] 09/22/2016 Document Revised: 08/31/2018 Document Reviewed: 09/22/2016 [employer]it Patient Education 2020 [employer]. 07/18/2022 11:39:09 Open Hernia Repair, Adult, Care [...] and water are not available, use hand contact lens edge buffer. ?Change your dressing as told by your [...] your urine clear or pale yellow. ?Take hwvd-uyg-muvxjyj or prescription medicines. ?Eat foods that are high in fiber, such as fresh fruits and vegetables, whole grains, and beans. ?Limit foods that are high in fat and processed sugars, such as fried and sweet foods. Take onxv-xoj-sxfvwxo and prescription medicines only as told by [...] 12/20/2005 Document Revised: 05/15/2018 Document Reviewed: 11/13/2016 [employer]ick.it Patient Education 2020 [employer] Follow Up Care 07/02/2022 10:17:34 With:AARON DUQUE MD, Surgery Address: [address] [facility] [place] [address]- [phone] When:07/25/2022 10:00:00 Comments:Follow-up as scheduled [facility] 02-02-2023 Summary of episode note Discharge [...] [facility] [address] [place] [address]- [phone] The Following Activity and Diet Have Been Ordered for You Discharge Activity - Ordered -- Sexual [place] Restricted No bending, twisting, crawling or squatt, [...] When Why Instructions Last Dose New acetaminophen-hydrocodone (Millbrook 325- 5 mg oral tablet) 1 tab(s) by mouth Every 4 hours as needed for Pain, scale 4-6 Acute post-operative pain Duration: 7 Days Pickup at [facility]/pharmacy #[id number] Unchanged carBAMazepine (TEGretol 200 mg oral tablet) 3 tab(s) by mouth Two (2) times a day Seizure Post-operative state s/p umbilical hernia repair, possible seizure following surgery Pharmacy Information [facility]/pharmacy #[id number]: [address] [place], [place] [id number] [phone] Please take this list to your next [...] as possible. If the spirometer includes a horse riding coach or instructor indicator, use this to guide you in [...] 10/13/2007 Document Revised: 06/25/2018 Document Reviewed: 04/15/2018 [employer]it Patient Education 2020 [employer] Surgical Drain Home Care Surgical drains [...] placed at your back, or any other zsqj-lh-oypdh area, ask another person to assist you [...] and water are not available, use hand contact lens edge buffer. 3. Remove the old dressing. Avoid using [...] and water are not available, use hand contact lens edge buffer. 3. Loosen any pins or clips that [...] placed at your back, or any other fhys-gk-doegl area, ask another person to assist you. Contact your health care provider if you have redness, swelling, or pain around your drain area. This information is not intended to replace advice given to you by your health care provider. Make sure you discuss any questions you have with your health care provider. Document Released: 05/30/2001 Document Revised: 07/07/2019 Document Reviewed: 07/07/2019 ElseOrthAlign Patient Education 2019 [employer]. Ryan Pantoja Drain Patient Education After surgery, [...] Document Reviewed: 06/03/2014 ExitCare Patient Information 2015 [employer]Parent. This information is not intended to replace [...] garbage bag. Soap and water, or hand contact lens edge buffer. Wound cleanser or salt-water solution (saline). New [...] and water are not available, use hand contact lens edge buffer. 3. Set up a clean station for [...] and water are not available, use hand contact lens edge buffer. Clean your wound Wear gloves, protective clothing, [...] and water are not available, use hand contact lens edge buffer. Apply new dressing Wear gloves, protective clothing, [...] and water are not available, use hand contact lens edge buffer. 8. Turn the pump back on. The sponge dressing should collapse. Do not change the settings on the machine without talking to a health care provider. 9. Replace the container in the pump that collects fluid if it is full. Replace the container per the bowling ball patcher's instructions or at least once a week, [...] all clamps are open. Do not use avhs-xrt-hqyaqts medicated or antiseptic creams, sprays, liquids, or [...] 08/24/2012 Document Revised: 09/24/2019 Document Reviewed: 08/20/2019 [employer]it Patient Education 2020 [employer]. Nausea and Vomiting, Adult Nausea is the [...] water added (diluted fruit juice). Eat bland, xtyv-pt-twhtzl foods in small amounts as you are able. These foods include bananas, applesauce, rice, lean meats, toast, and crackers. Avoid fluids that contain a lot of sugar or caffeine, such as energy drinks, sports drinks, and soda. Avoid alcohol. Avoid spicy or fatty foods. General instructions Take gwym-ckc-fnyvjqi and prescription medicines only as told by your health care provider. Drink enough fluid to keep your urine pale yellow. Wash your hands often using soap and water. If soap and water are not available, use hand contact lens edge buffer. Make sure that all people in your [...] eating and drinking to prevent dehydration. Take exzz-osa-xyhvfqb and prescription medicines only as told by [...] 06/02/2006 Document Revised: 09/24/2019 Document Reviewed: 11/10/2018 [employer]it Patient Education 2020 [employer]. Monitored Anesthesia Care, Care After These instructions [...] before eating solid foods. General instructions Take jwuk-pcy-xzadzld and prescription medicines only as told by [...] 09/22/2016 Document Revised: 08/31/2018 Document Reviewed: 09/22/2016 [employer]it Patient Education 2020 [employer]. Open Hernia Repair, Adult, Care After This [...] and water are not available, use hand contact lens edge buffer. ? Change your dressing as told by [...] urine clear or pale yellow. ? Take ygvi-qsz-dptsdcz or prescription medicines. ? Eat foods that are high in fiber, such as fresh fruits and vegetables, whole grains, and beans. ? Limit foods that are high in fat and processed sugars, such as fried and sweet foods. Take mrdp-jmi-hzdxjrc and prescription medicines only as told by [...] 12/20/2005 Document Revised: 05/15/2018 Document Reviewed: 11/13/2016 ElseOrthAlign Patient Education 2020 [employer]. Additional Information VACCINATE! IT SAVES LIVES! Members of the community who have not yet received the COVID-19 vaccine and would like to receive it can visit one of [facility] vaccine clinics. There are many vaccine clinic locations within the [facility]. For locations and available times, please visit [email or web address] It is important to note that some COVID mobile vaccine clinics are held outdoors and may be canceled in rainy or stormy conditions. To learn more about pediatric vaccinations (ages 5-11), we invite you to visit the [facility] webpage. [email or web address]://[email or web address]/pages/[email or web address]-Qiszjklbkqq-Fcsjznyxrr-Pnzht-Fht stions.htmlTo learn more about the COVID-19 vaccine, we invite you to visit the [employer] website for a list of frequently asked questions. [email or web address] _[email or web address].pdf [facility] Patient Portal Access Instructions: Stay connected with your healthcare team and access your personal medical information anytime with the [facility] Patient Portal.If you would like a full copy of your medical records, please contact the [facility] Medical Records Department, Friday through Friday between 8a.m. and 4:30p.m. Please follow the directions below to access the portal: 1.Access the email account you provided upon registration to the hospital.2.Look for an invitation email from [facility].3.Open the email and access the invitation link: Accept Invitation to [facility]4.Fill in the required vegas to create your account. Sign into www.Vivox with your username and password that you [...] you will allow to register on the [facility] Patient Portal for access to your information. You can also access the [facility] Patient Portal on the [employer] yen. Simply click on Health Records under [employer]iraMadeira and then click on the Xeround logo. HOW TO SAFELY DISPOSE OF PRESCRIPTION MEDICATIONS Please use one of the following methods to safely dispose of your unused medications. 1.Use a drug disposal kit: the drug disposal pouch allows you to safely discard your old and unuseddrugs. Ask your nurse to give you one when you are dischar (more content not included)... [facility]02-02-2023 Anesthesiology Consult note Patient: PATRICK KOROMA Age: 42 years Sex: Male : 1980 Associated Diagnoses: None Author: SOFÍA OROZCO APRN-COLOR STRAINING BAG WASHER Preoperative Information Time of last food or [...] list: Medical Acid reflux / SNOMED CT 893408724 / Confirmed 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 / SNOMED CT [id number] / Confirmed Fall / SNOMED CT 0372855 / Confirmed Electric shock / SNOMED CT 1344487606 / Confirmed Full dentures / SNOMED CT 449454459 / Confirmed Postprocedural hematoma of skin and subcutaneous tissue following other procedure / SNOMED CT 064033213 / Confirmed Seizure / SNOMED CT 652149947 / Confirmed TIA / SNOMED CT 741241139 / Confirmed Umbilical hernia / SNOMED CT 0208737613 / Confirmed, Active Problems (10) Acid reflux 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 Electric shock Fall Full dentures Postprocedural hematoma of skin and subcutaneous tissue following other procedure Seizure TIA Tobacco use Umbilical hernia Histories Past Medical History: Active TIA (084742546) Acid reflux (099500539) Seizure (488937189) Family History: Congenital heart disease Brother Stroke Mother Father Procedure history: Repair of recurrent ventral hernia (791936313) on 11/22/2021 at 41 Years. History of repair of umbilical hernia (0043234834) in 2019 at 39 Years. Appendectomy (534005221). 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-LEAD TECHNICAL ARCHITECT Tobacco 2Risk Assessment: High Risk 07/01/2022 Tobacco [...] Signs(last 24 hrs) Last Charted Heart Rate Hpifownzk36 bpm (JUL 18 08:50) Resp Rate 18 br/min (JUL 18 06:48) BXY826 mmHg (JUL 18 08:50) DBP68 mmHg (JUL 18 08:50) Measurements from flowsheet : Measurements 07/18/2022 6:48 EST Height 188 cm Admission Weight 134 kg [place] Body Weight 82.24 kg Admission Body Mass [...] Method N/A 07/18/2022 8:02 EST SN - RI - Medication MARCAINE BUPIVACAINE 0.5% 30ML SN - RI - Route of Administration Local SN - RI - Route of Administration Local SN - RI - By (Single) SN - RI - By (Single) SN - RI - By (Single) SN - RI - By (Single) 07/18/2022 7:57 EST SN - PP - Body Position Supine Standard Intra-op 07/18/2022 7:56 EST SN - PTCare - Anti-thromboembolism Ayla Sequential Compression Device (SCD) 07/18/2022 7:49 EST SN - CAt - Case Attendee SN - CAt - Case Attendee SN - CAt - Case Attendee SN - CAt - Case Attendee SN - CAt - Role Performed COLOR STRAINING BAG WASHER SN - CAt - Role Performed Kennel Aide 1 07/18/2022 7:30 EST Primary Pain Intensity [...] Surgeon SN - CAt - Role Performed Powder Cutting Operator 1 SN - CAt - Role Performed Scrub 1 07/18/2022 7:12 EST Infectious Disease Symptoms Patient states no symptoms Safety Brochure Information Reviewed Unable to complete [facility] Video Viewed No Teaching Evaluation Needs practice/supervision Admission Note-Nursing Same Day Patient History (Modified) 07/18/2022 7:10 EST Lactated Ringers Injection Begin Bag 1,000 mL mL 07/18/2022 6:48 EST Height 188 cm Admission Weight 134 kg [place] Body Weight 82.24 kg Admission Body Mass [...] no difficulties Skin Temperature Warm Skin Description [place], Dry Skin Integrity Intact Mucous Membrane Color [place] IV Present Present Continuous IV Infusions LR [...] Cooperative Orientation Oriented x 4 Allergies Yes Environmental Health Technician On Yes Consent Form Signed Yes Patient [...] Void 07/18/2022 7:01 . Assessment and Plan [place] Society of Anesthesiologists (ASA) physical status classification: Class III. Anesthetic Preoperative Plan Premedication: intravenous. Anesthetic technique: General. Induction: intravenously. Maintenance airway: Oral endotracheal tube. Postoperative pain management: Per surgeon. Risks discussed: nausea, vomiting, sore throat. Informed consent: signed by patient. Digitally Signed by SOFÍA OROZCO on 07/18/2022 09:03 AM [facility]01-30-2023 Evaluation + Plan note Future Appointments Diagnostic Tests Pending * [facility] Lab Send out (Blood Specimens) 07/15/22 Future Scheduled Tests Laboratory* Basic Metabolic Panel 11/23/21 * Carbamazepine Level 11/23/21 * Complete Metabolic Panel 11/23/21 [facility] 01-30-2023 Hospital Discharge instructions Patient Education [...] told. 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 [address] [place] [address]. All rights reserved. This information is not intended as a substitute for professional medical care. Always follow yourhealthcare professional's instructions. Follow Up Care 07/15/2022 00:22:57 With:[facility] Address: When:2-4 days [facility] 01-30-2023 Note Discharge Instructions Thank you for allowing [facility] to assist you with your healthcare needs. The following is importantdischarge information regarding your hospital visit. Diagnosis from Today's Visit Seizure disorder, Seizure Possible Seizure What to Do Next Instructions from Your Care Team No qualifying data available. Post Acute Orders No qualifying data available. You Need to Schedule the Following Appointments Follow Up with [facility] When Within 2-4 days Where: Allergies Keflex [...] told. 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 [address] [place] [address]. All rights reserved. This information is not intended as a substitute for professional medical care. Always follow yourhealthcare professional's instructions. Additional Information VACCINATE! IT SAVES LIVES! Members of the community who have not yet received the COVID-19 vaccine and would like to receive it can visit one of [facility] vaccine clinics. There are many vaccine clinic locations within the [facility]. For locations and available times, please visit [email or web address]. It is important to note that some COVID mobile vaccine clinics are held outdoors and may be canceled in rainy orstormy conditions. To learn more about pediatric vaccinations (ages 5-11), we invite you to visit the [facility] webpage. https://[email or web address]/pages/[email or web address]-Cukfu-Hurnjkpjjxf-Nyocfjprnn-Ckspk-Zgs stions.htmlTo learn more about the COVID-19 vaccine, we invite you to visit the [facility] website for a list of frequently asked questions. [email or web address] _[email or web address].pdf [facility] Patient Portal Access Instructions: Stay connected with your healthcare team and access your personal medical information anytime with the [facility] Patient Portal. If you would like a full copy of your medical records please contact the [facility] Medical Records Department Friday through Friday between 8a.m. and 4:30p.m. Please follow the directions below to access the portal: 1.Access the email account you provided upon registration to the [facility].2.Look for an invitation email from [facility].3.Open the email and access the invitation link: Accept Invitation to [employer]4.Fill in the required vegas to create your account. Sign into [email or web address] with your username and password that you [...] you will allow to register on the [employer] Patient Portal for access to your information. You can also access the [facility] [employer] [facility] [facility] Patient Portal on the [employer] yen. Simply click on Health Records under [...] Call your local pharmacy or go to http://bit.ly/1I7Hx6m to find one close to you.3.Make use of household items: Use cat litter or old coffee grounds to dispose medications if other options arenot available. Mix your drugs with these household products, seal them in an airtight container andthrow it into the garbage. Call [facility]: [phone] to be sure your drugs can be [...] aware that I should contact my doctor. Patient/Ballet Professor Signature: Date/Time: Relationship to Patient: Witness Name/Signature: Date/Time: [facility]01-30-2023 Note ORIGINAL EXAMINATION: CT OF THE [...] Date: 07/15/2022 1:25:42 AM Ordering Provider: DAVONTE ONEILL [facility]01-30-2023 Note ORIGINAL EXAMINATION: CT OF THE [...] Date: 07/15/2022 1:25:42 AM [facility]ing [facility] Discharge instructions Patient Education 06/27/2022 23:32:40 [...] blood pressure monitors at most pharmacies. The [employer] recommends the following guidelines for [...] face You have problems speaking or seeing 7586-9456 [employer]. [address] [place] [address]. All rights reserved. This information is not [...] or as directed by your healthcare provider [phone] [employer]. [address] [place] [address], [place] [address]. All rights reserved. This information is not [...] foods again, start with small amounts of ssmv-fk-sndonp, low- fat foods. These include apple sauce, [...] increase stomach acid. Don't use aspirin or wyuz-eiu-webdeak pain and fever medicines, if possible. This includes nonsteroidal anti-inflammatory drugs (NSAIDs). Lose excess weight. Finish eating at least 2 hours before you go to bed or lie down. Raise the head of your bed. 2404-5898 [employer]. [address] [place] [address]. All rights reserved. This information is not [...] the referral doctor. With:AARON DUQUE Address: [address] [facility] [address] [facility] [place] [phone] Business (1) When:2-4 days Comments:Schedule an appointment for close follow-up.Continue Tylenol for pain as needed.Use Millbrook as prescribed for severe pain as needed.Return to the ED if symptoms worsen. [facility] Colindres 01-13-2023 Note Discharge Instructions Thank you for [...] Continue Tylenol for pain as needed. Use Millbrook as prescribed for severe pain as needed. Return to the ED if symptoms worsen. Where: [address] [facility] [address] [facility] [place] [address]- [phone] Business (1) Allergies Keflex Keppra (Rash) Tape, Paper (Rash) morphine (Rash) naproxen Medications Please ask your primary doctor or pharmacist before taking any other medication not listed, including over the counter drugs, herbal medications, vitamins and or supplements as they may interact withyour home medications. What How Much When Why Instructions Last Dose New acetaminophen-hydrocodone (Millbrook 325- 5 mg oral tablet) 1 tab(s) [...] blood pressure monitors at most pharmacies. The [employer] recommends the following guidelines for [...] face You have problems speaking or seeing 2064-0036 [employer]. [address] [place] [address], [place] [address]. All rights reserved. This information is not [...] or as directed by your healthcare provider 6768-8651 [employer]. [address] [place] [address]. All rights reserved. This information is not [...] foods again, start with small amounts of yive-kf-jqawrg, low- fat foods. These include apple sauce, [...] increase stomach acid. Don't use aspirin or stxh-zag-jztxukr pain and fever medicines, if possible. This includes nonsteroidal anti-inflammatory drugs (NSAIDs). Lose excess weight. Finish eating at least 2 hours before you go to bed or lie down. Raise the head of your bed. 7853-3324 [employer]. [address] [place] [address]. All rights reserved. This information is not intended as a substitute for professional medical care. Always follow yourhealthcare professional's instructions. Additional Information VACCINATE! IT SAVES LIVES! Members of the community who have not yet received the COVID-19 vaccine and would like to receive it can visit one of [facility] vaccine clinics. There are many vaccine clinic locations within the [facility]. For locations and available times, please visit www.[email or web address]. It is important to note that some COVID mobile vaccine clinics are held outdoors and may be canceled in rainy orstormy conditions. To learn more about pediatric vaccinations (ages 5-11), we invite you to visit the [facility] webpage. https://www.[facility].org/pages/4973-Tmhlz-Tmzokckuzmd-Mgslhagwgp-Twios-Joz stions.htmlTo learn more about the COVID-19 vaccine, we invite you to visit the [facility] website for a list of frequently asked questions. https://lynch station.[employer]/assets/Tzpyynlc-hen-Woznafsz/cnuqw-Yvsqfvn-Qsofwajefj _Asked-Questions.pdf [employer] Patient Portal Access Instructions: Stay connected with your healthcare team and access your personal medical information anytime with the [employer] Patient Portal. If you would like a full copy of your medical records please contact the [facility] Medical Records Department Friday through Friday between 8a.m. and 4:30p.m. Please follow the directions below to access the portal: 1.Access the email account you provided upon registration to the [facility].2.Look for an invitation email from [facility].3.Open the email and access the invitation link: Accept Invitation to [employer]4.Fill in the required vegas to create your account. Sign into [email or web address] with your username and password that you [...] you will allow to register on the [employer] Patient Portal for access to your information. You can also access the [employer] Patient Portal on the [employer]. Simply click on Health Records under MadeiraMadeira and then click on the Xeround logo. HOW TO SAFELY DISPOSE OF PRESCRIPTION [...] Call your local pharmacy or go to [email or web address] to find one close to you.3.Make use of household items: Use cat litter or old coffee grounds to dispose medications if other options arenot available. Mix your drugs with these household products, seal them in an airtight container andthrow it into the garbage. Call [facility]: [phone] to be sure your drugs can be [...] aware that I should contact my doctor. Patient/Ballet Professor Signature: Date/Time: Relationship to Patient: Witness Name/Signature: Date/Time: [facility]01-12-2023 Note ORIGINAL EXAMINATION: CT OF THE [...] Sign Date: 06/27/2022 11:27:05 PM Ordering Provider: [facility]01-05-2023 Hospital Discharge instructions* Discharge Instructions* ERIC Mandel - 06/20/2022 12:31 AM EST Please take medication as prescribed Please follow up with your Physicians as instructed in this discharge paperwork Thank you for choosing [facility] I appreciate your patience Please return to the emergency department if your symptoms worsen, or new symptoms develop as discussed documented in this [facility]01-04-2023 Emergency department Note* ERIC Mandel - 06/19/2022 7:06 PM EST [facility] EMERGENCY DEPARTMENT ENCOUNTER Pt Name: Patrick [...] patient come from an ECF, SNF, Rehab, Skilled Nursing or other Congregate setting: no (If yes [...] HISTORY Past Medical History: Diagnosis Date Seizures ([facility]) SURGICAL HISTORY Past Surgical History: [...] upper and lower extremities bilateral with normal security system technician strength, normal plantar flexion and dorsiflexion. Skin: Findings: No erythema or rash. Neurological: General: No focal deficit present. Mental Status: He is oriented to person, place, and time. Comments: Cranial Nerves 2-12 are intact without without any neurological deficits Normal witcaf-wk-lbjsff, cnived-fq-pwtu, alternating hands, heel to tong test bilateral [...] Discharge 06/20/2022 12:30:39 AM PATIENT REFERRED TO: [facility] [address] [facility] [address] Schedule an appointment as soon as possible for a visit in 2 days [facility] [address] [facility] [phone] Schedule an appointment as soon as possible for a visit in 1 week [facility] [address] [facility] [address] Go to If symptoms worsen DISCHARGE MEDICATIONS: New Prescriptions No medications on file (Please note: Portions of this note were completed with a voice recognition program. Efforts were made to edit thedictations but occasionally words and phrases are mis-transcribed.) Form v2016.J.5-cn ERIC Mandel (electronically signed) Emergency Medicine Provider ERIC Mandel 06/20/2233 ERIC Mandel 06/20/22 0038 documented in this [facility]01-04-2023 Physician Emergency department Note* ERIC Mandel - 06/19/2022 7:06 PM EST [facility] ED EMERGENCY DEPARTMENT ENCOUNTER Pt Name: Patrick [...] patient come from an ECF, SNF, Rehab, Skilled Nursing or other Congregate setting: no (If yes [...] HISTORY Past Medical History: Diagnosis Date Seizures (CMS/HCC) SURGICAL HISTORY Past Surgical History: Procedure Laterality [...] upper and lower extremities bilateral with normal security system technician strength, normal plantar flexion and dorsiflexion. Skin: Findings: No erythema or rash. Neurological: General: No focal deficit present. Mental Status: He is oriented to person, place, and time. Comments: Cranial Nerves 2-12 are intact without without any neurological deficits Normal mfapwt-ru-rsvgkz, jttdmy-pz-vgbm, alternating hands, heel to tong test bilateral [...] neurological changes, confusion to name a few. Diego Christie PA-C am the primary YEN clinician [...] Discharge 06/20/2022 12:30:39 AM PATIENT REFERRED TO: [facility] [address] [facility] [phone] Schedule an appointment as soon as possible for a visit in 2 days [facility] [address] [facility] [address] Schedule an appointment as soon as possible for a visit in 1 week [facility] [address] [facility] [phone] Go to If symptoms worsen DISCHARGE MEDICATIONS: New Prescriptions No medications on file (Please note: Portions of this note were completed with a voice recognition program. Efforts were made to edit thedictations but occasionally words and phrases are mis-transcribed.) Form v2016.J.5-cn ERIC Mandel (electronically signed) Emergency Medicine Provider ERIC Mandel 06/20/2233 ERIC Mandel 06/20/228 [facility]: [phone] 299-255612-17-2022 Hospital Discharge instructions Patient Education 05/31/2022 23:54:43 [...] or as directed by your healthcare provider [phone] [employer]. [address] [place] [address]. All rights reserved. This information is not [...] blue color of the hand or foot 5728-0860 [employer]. [address] [place] [address], [place] [address]. All rights reserved. This information is not intended as a substitute for professional medical care. Always follow yourhealthcare professional's instructions. Follow Up Care 05/31/2022 21:06:21 With:AARON DUQUE Address: [address] [facility] [address] [place] [address]- [phone] Business (1) When:3-7 days Comments:Schedule appointment for follow-up.Use Tylenol or Motrin for pain as needed.Use Millbrook as prescribedfor severe pain as needed.Return to the ED if symptoms worsen. [facility] Bernadine 12-17-2022 Note Discharge Instructions Thank you for allowing [facility] to assist you with your healthcare needs. [...] or Motrin for pain as needed. Use Millbrook as prescribed for severe pain as needed. Return to the ED if symptoms worsen. Where: [address] [facility] [address] [place] [phone] Business (1) Allergies Keflex Keppra (Rash) Tape, Paper (Rash) morphine (Rash) naproxen Medications Please ask your primary doctor or pharmacist before taking any other medication not listed, including over the counter drugs, herbal medications, vitamins and or supplements as they may interact withyour home medications. What How Much When Why Instructions Last Dose New acetaminophen-hydrocodone (Millbrook 325- 5 mg oral tablet) 1 tab(s) [...] or as directed by your healthcare provider 1432-5149 [employer]. [address] [place] [address], [place] [address]. All rights reserved. This information is not [...] blue color of the hand or foot 0311-7090 [employer]. [address] [place], [place] [address]. All rights reserved. This information is not intended as a substitute for professional medical care. Always follow yourhealthcare professional's instructions. Additional Information VACCINATE! IT SAVES LIVES! Members of the community who have not yet received the COVID-19 vaccine and would like to receive it can visit one of [facility] vaccine clinics. There are many vaccine clinic locations within the [facility]. For locations and available times, please visit www.[email or web address]. It is important to note that some COVID mobile vaccine clinics are held outdoors and may be canceled in rainy orstormy conditions. To learn more about pediatric vaccinations (ages 5-11), we invite you to visit the [employer] [facility] webpage. https://www.[employer]s.org/pages/5617-Ptlkm-Lvzugyqoryf-Gonzjaoicm-Zlfyo-Dgl stions.htmlTo learn more about the COVID-19 vaccine, we invite you to visit the [facility] website for a list of frequently asked questions. https://[email or web address]/assets/Wqvanfqg-iko-Zztpmofc/ippuq-Dsojswb-Cmyhzlywjx _Asked-Questions.pdf [employer] Patient Portal Access Instructions: Stay connected with your healthcare team and access your personal medical information anytime with the [employer] Patient Portal. If you would like a full copy of your medical records please contact the [facility] Medical Records Department Friday through Friday between 8a.m. and 4:30p.m. Please follow the directions below to access the portal: 1.Access the email account you provided upon registration to the [facility].2.Look for an invitation email from [facility].3.Open the email and access the invitation link: Accept Invitation to [employer]4.Fill in the required vegas to create your account. Sign into [email or web address] with your username and password that you [...] you will allow to register on the [employer] Patient Portal for access to your information. You can also access the [employer] Patient Portal on the [employer] yen. Simply click on Health Records under MadeiraMadeira and then click on the Xeround logo. HOW TO SAFELY DISPOSE OF PRESCRIPTION [...] Call your local pharmacy or go to [email or web address]://[email or web address].[facility]/[email or web address] to find one close to you.3.Make use of household items: Use cat litter or old coffee grounds to dispose medications if other options arenot available. Mix your drugs with these household products, seal them in an airtight container andthrow it into the garbage. Call [facility]: [phone] to be sure your drugs can be [...] aware that I should contact my doctor. Patient/Ballet Professor Signature: Date/Time: Relationship to Patient: Witness Name/Signature: Date/Time: [facility]12-17-2022 Note ORIGINAL EXAMINATION: CT OF THE [...] Sign Date: 06/01/2022 12:00:43 AM Ordering Provider: [facility]12-16-2022 Note ORIGINAL EXAMINATION: CT OF THE ABDOMEN [...] Sign Date: 06/01/2022 12:00:43 AM Ordering Provider: [facility]12-12-2022 Hospital Discharge instructions Patient Education [...] humidified air to open blocked nasal passages. casing in line feeder a hot shower or usea vaporizer. Be [...] mouth Spotted, red, or very sore throat 5624-6948 [employer]. [address] [place] [address]. All rights reserved. This information is not intended as a substitute for professional medical care. Always follow yourhealthcare professional's instructions. Follow Up Care 05/27/2022 17:56:54 With:Go to emergency room if symptoms worsen Address:Unknown When:2-4 days With:Call Physician Referral Address:Unknown When:2-4 days [facility] 12-12-2022 Note ORIGINAL EXAMINATION: ONE XRAY [...] 05/27/2022 7:25:51 PM Ordering Provider: LEORA KHAN [facility] Wandy [id number] Note Discharge Instructions Thank you for allowing [...] humidified air to open blocked nasal passages. casing in line feeder a hot shower or usea vaporizer. Be [...] mouth Spotted, red, or very sore throat 4660-8308 [employer]. [address] [place] [address]. All rights reserved. This information is not intended as a substitute for professional medical care. Always follow yourhealthcare professional's instructions. Additional Information VACCINATE! IT SAVES LIVES! Members of the community who have not yet received the COVID-19 vaccine and would like to receive it can visit one of [facility] vaccine clinics. There are many vaccine clinic locations within the [facility]. For locations and available times, please visit www.[email or web address]. It is important to note that some COVID mobile vaccine clinics are held outdoors and may be canceled in rainy orstormy conditions. To learn more about pediatric vaccinations (ages 5-11), we invite you to visit the [employer] [facility] [employer] [facility] webpage. https://www.akronTrovits.org/pages/4410-Uzqnm-Cfttthkgmbx-Iphscpufob-Abihu-Xga stions.htmlTo learn more about the COVID-19 vaccine, we invite you to visit the [facility] website for a list of frequently asked questions. https://[email or web address]/assets/Hsxeaoro-tgf-Pzajtmno/rbhry-Jgwvdvy-Fdmmqtsegc _Asked-Questions.pdf [employer] Patient Portal Access Instructions: Stay connected with your healthcare team and access your personal medical information anytime with the [employer] Patient Portal. If you would like a full copy of your medical records please contact the [facility] Medical Records Department Friday through Friday between 8a.m. and 4:30p.m. Please follow the directions below to access the portal: 1.Access the email account you provided upon registration to the hospital.2.Look for an invitation email from [facility].3.Open the email and access the invitation link: Accept Invitation to [employer]4.Fill in the required vegas to create your account. Sign into [email or web address] with your username and password that you [...] you will allow to register on the [employer] Patient Portal for access to your information. You can also access the [employer] Patient Portal on the [employer]. Simply click on Health Records under Netcordiata and then click on the [facility] logo. [...] Call your local pharmacy or go to http://[employer]/[email or web address] to find one close to you.3.Make use of household items: Use cat litter or old coffee grounds to dispose medications if other options arenot available. Mix your drugs with these household products, seal them in an airtight container andthrow it into the garbage. Call [facility]: [phone] to be sure your drugs can be [...] aware that I should contact my doctor. 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 [address] [place] [address], [place] [address]. All rights reserved. This information is not intended as a substitute for professional medical care. Always follow yourhealthcare professional's instructions. Follow Up Care 03/14/2022 22:45:58 With:MICHAEL ERICKSON Address: [address] [place] [phone] Business (1) When:2-4 days With:Call Physician Referral Address:Unknown When:2-4 days [facility] Note Discharge Instructions Thank you for allowing [facility] to assist you with your healthcare needs. The following is importantdischarge information regarding your hospital visit. Diagnosis from Today's Visit Headache What to Do Next Instructions from Your Care Team No qualifying data available. Post Acute Orders No qualifying data available. You Need to Schedule the Following Appointments Follow Up with MICHAEL ERICKSON When Within 2-4 days Where: [address] [place] [address] [phone] Business (1) Follow Up with Call Physician [...] the ears or bruising around the eyes 8556-0474 [employer]. [address] [place] [address], [place] [address]. All rights reserved. This information is not intended as a substitute for professional medical care. Always follow yourhealthcare professional's instructions. Additional Information VACCINATE! IT SAVES LIVES! Members of the community who have not yet received the COVID-19 vaccine and would like to receive it can visit one of [facility] vaccine clinics. There are many vaccine clinic locations within the [facility]. For locations and available times, please visit www.[email or web address]. It is important to note that some COVID mobile vaccine clinics are held outdoors and may be canceled in rainy orstormy conditions. To learn more about pediatric vaccinations (ages 5-11), we invite you to visit the [employer] [facility] webpage. https://www.[facility].org/pages/1611-Wlosc-Cathutkogbk-Nzatnhzutu-Cbsed-Zqp stions.htmlTo learn more about the COVID-19 vaccine, we invite you to visit the [facility] website for a list of frequently asked questions. https://[email or web address]/assets/Kruyxthm-znk-Yrqmafjq/sgvnj-Mfptxtw-Zoxluikygc _Asked-Questions.pdf [employer] Patient Portal Access Instructions: Stay connected with your healthcare team and access your personal medical information anytime with the [employer] Patient Portal. If you would like a full copy of your medical records please contact the [facility] Medical Records Department Friday through Friday between 8a.m. and 4:30p.m. Please follow the directions below to access the portal: 1.Access the email account you provided upon registration to the hospital.2.Look for an invitation email from [facility].3.Open the email and access the invitation link: Accept Invitation to [employer]4.Fill in the required vegas to create your account. Sign into [email or web address] with your username and password that you [...] you will allow to register on the [employer] Patient Portal for access to your information. You can also access the [employer] Patient Portal on the [employer] yen. Simply click on Health Records under Netcordiata and then click on the Xeround logo. HOW TO SAFELY DISPOSE OF PRESCRIPTION [...] Call your local pharmacy or go to [email or web address]://[email or web address]/[email or web address] to find one close to you.3.Make use of household items: Use cat litter or old coffee grounds to dispose medications if other options arenot available. Mix your drugs with these household products, seal them in an airtight container andthrow it into the garbage. Call [facility]: [phone] to be sure your drugs can be [...] aware that I should contact my doctor. Patient/Ballet Professor Signature: Date/Time: Relationship to Patient: Witness Name/Signature: Date/Time: [facility]09-29-2022 Note ORIGINAL EXAMINATION: CT OF THE [...] 03/14/2022 11:55:41 PM Ordering Provider: JORGITO CANNON [facility]09-29-2022 Note ORIGINAL EXAMINATION: CT OF THE [...] Sign Date: 03/14/2022 11:55:41 PM Ordering Provider: [facility]09-23-2022 Hospital Discharge instructions* Discharge Instructions* Giles Maier [...] Everywhere. * Head Injury: Closed: General Info (Hungarian) documented in this encounterSUMMA Work Phone: 1(568) 733-148407-21-2022 History of Present illness Narrative* Ibrahima Schaefer [...] repair of his recurrent ventral hernia at [facility] performed by Dr. Aaron Duque. The operative [...] any other maneuvers. The patient presented to [facility] emergency department on January 01 complaining of [...] entered by the nurse and reviewed by ok Nursing Notes: Charlie Mera RN 01/03/2022 11:28 [...] applicable. Charlie [facility]era RN [facility]* Charlie Mera RN - 01/03/2022 [...] None Charlie Mera RN [facility] Instructions* Patient Instructions* Charlie Mera RN - 01/03/2022 10:45 AM EDT The following instructions are important for you related to your office visit today with the [facility] General Surgeons. Instructions After HEMATOMA/SEROMA ASPIRATION Please [...] you should contact our office immediately @ [phone] and ask to be transferred to the General Surgery department. [facility] Hospital Discharge instructions Patient Education 12/21/2021 22:26:10 [...] blue color of the hand or foot [phone] [employer]. [address] [place] [address], [place] [address]. All rights reserved. This information is not intended as a substitute for professional medical care. Always follow yourhealthcare professional's instructions. Follow Up Care 12/21/2021 20:37:47 With:AARON DUQUE MD, Surgery Address: [address] [facility] [place] [address] [phone] When:2-4 days [facility] 07-08-2022 Emergency department Discharge summary Discharge Instructions Thank you for allowing [facility] to assist you with your healthcare needs. [...] [address] [facility] [place] [address] [phone] Allergies Keflex Keppra (Rash) Tape, Paper (Rash) morphine (Rash) naproxen Medications Please ask your primary doctor or pharmacist before taking any other medication not listed, including over the counter drugs, herbal medications, vitamins and or supplements as they may interact withyour home medications. What How Much When Why Instructions Last Dose New acetaminophen-hydrocodone (Millbrook 325- 5 mg oral tablet) 1 tab(s) [...] blue color of the hand or foot [phone] [employer]. [address] [place] [address]. All rights reserved. This information is not intended as a substitute for professional medical care. Always follow yourhealthcare professional's instructions. Additional Information VACCINATE! IT SAVES LIVES! Members of the community who have not yet received the COVID-19 vaccine and would like to receive it can visit one of [facility] vaccine clinics. There are many vaccine clinic locations within the [facility]. For locations and available times, please visit [email or web address]. It is important to note that some COVID mobile vaccine clinics are held outdoors and may be canceled in rainy orstormy conditions. To learn more about pediatric vaccinations (ages 5-11), we invite you to visit the [facility] webpage. [email or web address] [email or web address] learn more about the COVID-19 vaccine, we invite you to visit the [facility] website for a list of frequently asked questions. [email or web address] _[email or web address] [facility] [employer] Patient Portal Access Instructions: Stay connected with your healthcare team and access your personal medical information anytime with the [facility] Patient Portal. If you would like a full copy of your medical records please contact the [facility] Medical Records Department Friday through Friday between 8a.m. and 4:30p.m. Please follow the directions below to access the portal: 1.Access the email account you provided upon registration to the hospital.2.Look for an invitation email from [facility].3.Open the email and access the invitation link: Accept Invitation to [employer]4.Fill in the required vegas to create your account. Sign into www.Vivox with your username and password that you [...] you will allow to register on the [employer] [facility] Patient Portal for access to your information. You can also access the [employer] Patient Portal on the [employer]. Simply click on Health Records under MadeiraMadeira and then click on the Xeround logo. HOW TO SAFELY DISPOSE OF PRESCRIPTION [...] Call your local pharmacy or go to [email or web address] to find one close to you.3.Make use of household items: Use cat litter or old coffee grounds to dispose medications if other options arenot available. Mix your drugs with these household products, seal them in an airtight container andthrow it into the garbage. Call [facility]: [phone] to be sure your drugs can be [...] aware that I should contact my doctor. 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 [address] [place] [address], [place] [address]. All rights reserved. This information is not intended as a substitute for professional medical care. Always follow yourhealthcare professional's instructions. Follow Up Care 11/30/2021 18:59:24 With:AARON DUQUE Address: [address] [place] [address]- [phone] Business (1) When:2-4 days Comments:Schedule appointment for follow-up.Ice or cool compresses to the swollen, painful area.Use Tylenol,Advil or Aleve for pain as needed.Use Millbrook as prescribed for severe pain as needed.Return to the ED if symptoms worsen [facility] 06-10-2022 Evaluation + Plan note Future Scheduled Tests Laboratory* Basic Metabolic Panel 11/23/21 * Carbamazepine Level 11/23/21 * Complete Metabolic Panel 11/23/21 [facility] 06-10-2022 Evaluation + Plan note Future Appointments Future Scheduled Tests Laboratory* Basic Metabolic Panel 11/23/21 * Carbamazepine Level 11/23/21 * Complete Metabolic Panel 11/23/21 [facility] 06-10-2022 Evaluation + Plan note Future Scheduled Tests Laboratory* Basic Metabolic Panel 11/23/21 * Carbamazepine Level 11/23/21 * Complete Metabolic Panel 11/23/21 Radiology* IR Drainage Peritoneal Abscess Guide 08/20/22 [facility] 04-23-2022 Hospital Discharge instructions Patient Education [...] the waistline) or spreads to the back [phone] [employer]. [address] [place] [address], [place] [address]. All rights reserved. This information is not intended as a substitute for professional medical care. Always follow yourhealthcare professional's instructions. Follow Up Care 10/06/2021 14:45:39 With:AARON DUQUE MD, Surgery Address: [address] [place] [address]- [phone] When:2-4 days [facility] Discharge summary Author Guevara Choi [facility] Note Date/Time December 07, 2024 12:1 3am [facility] Medical Records Department [address] [place] [address] Emergency Department Summary 12/07/24 MR#: [id number] Acct: [id number] Name: PATRICK KOROMA Rep #:[id number] : 1980 44 From: Guevara Choi MD PCP: ERIC Anaya Status:REG ER Location: ED HPI History of Present Illness Chief Complaint: Upper Extremity Injury Informant: patient Narrative Narrative: During 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 Oqpwo-jimj-fknivpsf. [facility] Medical History Seroma after procedure Influenza [...] abnormality of the right hand. Reading Location: [id number] Discharge Plan Triage Chief Complaint: Upper Extremity Injury ED Provider: Guevara Choi Dx/Rx/DC Orders Clinical Impression: Contusion of right thumb with damage to nail, initial encounter Instructions: ED Finger or Toe Contusion Prescriptions: No Action NK Primary Care Provider: Viola Starkey NP Referrals: Viola Starkey NP, MAKEUP ARTISTRY INSTRUCTOR-C [Primary Care Provider] - 10-14 Days if not better Print Language: Hungarian Disposition Disposition: Home, Self Care What to do if you have Problems For any increased pain, shortness of breath, bleeding, nausea or vomiting, chestpain, or any unexpected problems, contact your Primary Care Provider. Call [facility] ([phone]) or report to the closest Emergency Room. Call 911 if necessary. 12/07/24 0013 <Electronically signed by Guevara Choi MD> Cosigner Signature (if applicable): CC: YULI-Marielos Starkey ~ Signed [facility] Work Phone: Evaluation + Plan note No data available for this section [facility] Evaluation + Plan note Future Appointments Appointment Date:11/01/2021 02:10:00 PM Scheduled Provider:AARON DUQUE MD Location:Gen Surg [facility] Appointment Type:GS OV Check after Test [facility] Evaluation + Plan note Future Appointments [facility] Evaluation + Plan note Future Appointments Appointment Date:12/06/2021 01:40:00 PM Scheduled Provider:AARON DUQUE MD Location:Gen Surg [facility] Appointment Type:GS OV Post Op Appointment Date:02/22/2022 10:30:00 AM Scheduled Provider:APPLE CONNORS Location:[facility] Appointment Type: Wellness Annual Future Scheduled Tests Laboratory* Basic Metabolic Panel 11/23/21 * Carbamazepine Level 11/23/21 * Complete Metabolic Panel 11/23/21 [facility] evaluation + Plan note Future Appointments Appointment Date:12/27/2021 01:20:00 PM Scheduled Provider:AARON DUQUE MD Location:Gen Surg [facility] Appointment Type:GS OV Follow Up Appointment Date:02/22/2022 10:30:00 AM Scheduled Provider:APPLE CONNORS Location:[facility] Appointment Type: Wellness Annual Future Scheduled Tests Laboratory* Basic Metabolic Panel 11/23/21 * Carbamazepine Level 11/23/21 * Complete Metabolic Panel 11/23/21 [facility] Evaluation + Plan note Future Appointments Appointment Date:07/01/2022 03:20:00 PM Scheduled Provider:AARON DUQUE MD Location:Gen Surg [facility] Appointment Type:GS OV Future Scheduled Tests Laboratory* Basic Metabolic Panel 11/23/21 * Carbamazepine Level 11/23/21 * Complete Metabolic Panel 11/23/21 [facility] evaluation + Plan note Future Appointments Appointment Date:07/25/2022 10:00:00 AM Scheduled Provider:AVANI CANTOR Location:Gen Surg [facility] Appointment Type:GS OV Post Op Future Scheduled Tests Laboratory* Basic Metabolic Panel 11/23/21 * Carbamazepine Level 11/23/21 * Complete Metabolic Panel 11/23/21 [facility] evaluation noteNo assessment information available [facility] Work Phone: evaluation note* Diagnosis Hematoma- Primary Contusion of unspecified site Incisional hernia, without obstruction or gangrene Incisional hernia without mention of obstruction or gangrene documented in this encounter [facility]* Diagnosis Closed head injury, initial encounter- Primary documented in this encounter [facility] Work Phone: Evaluation note* Diagnosis Injury of right wrist, initial encounter- Primary [facility] Work Phone: evaluation note* Diagnosis Acute pain of right shoulder- Primary Strain of right shoulder, initial encounter [facility] this [facility] Work Phone: evaluation note* Diagnosis Onset Date Resolution Status Infected hernioplasty mesh a [facility] Work Phone: Evaluation note* Diagnosis Left lower quadrant abdominal pain- Primary documented in this encounter [facility]* Diagnosis Preoperative examination- Primary Preoperative examination, unspecified Infected hernioplasty mesh, sequela documented in this encounter [facility]* Diagnosis Abdominal pain, unspecified abdominal location- Primary Preoperative examination Preoperative examination, unspecified Infected hernioplasty mesh, sequela documented in this encounter [facility] note* Diagnosis Pre-op evaluation- Primary Preoperative examination, unspecified Post traumatic seizure disorder (HCC) Post traumatic seizures Morbid obesity (HCC) Morbid obesity Tobacco use Tobacco use disorder Preoperative examination Preoperative examination, unspecified Infected hernioplasty mesh, sequela documented in this encounter [facility]* Diagnosis Left lower quadrant abdominal pain- Primary documented in this encounter [facility] note* Diagnosis Left lateral abdominal pain- Primary Abdominal pain, unspecified site documented in this encounter [facility]* Diagnosis Seizure (CMS/HCC) (HCC)- Primary Other convulsions documented in this encounter [facility] note* Diagnosis Periumbilical abdominal pain- Primary Abdominal pain, periumbilic History of abdominal hernia documented in this encounter [facility] Work Phone: Evaluation note* Diagnosis History of abdominal hernia documented in this encounter [facility] Work Phone: Hospital Discharge instructions No data available for this section [facility] Hospital Discharge instructions* Attachments The following attachments cannot be sent through Care Everywhere. * RICE: General Info (Hungarian) [facility] Work Phone: Hospital Discharge instructions* Attachments The following attachments cannot be sent through Care Everywhere. * Shoulder Sprain (Hungarian) [facility] Work Phone: Hospital Discharge instructions Additional Instructions Please keep your appointment next week with [facility] Work Phone: Hospital Discharge instructions Additional Instructions Your x-ray right shoulder negative. Your clinical exam concerns for biceps tendinitis of the shoulder region. Continue ibuprofen. Finish prednisone as prescribed.[facility] Work Phone: Hospital Discharge instructions Additional Instructions You may wear the sling for comfort but exercise your right shoulder at least 3 times a day to prevent frozen shoulder. Ekcv-dal-xeatykb medications as needed for pain. Follow-up with orthopedics if not improving.[facility] Work Phone: Hospital Discharge instructionsAdditional Instructions Call the [facility]. Get the name and office number of the general surgeons there that are hernia shuttle repairer. Call their office to get an appointment. Motrin and Tylenol for pain.[facility] Work Phone: Progress note No data available for this section [facility] Reason for referral (narrative)No reason for referral information availableWMercy Health St. [facility] Work Phone: Reason for visit Narrative* Consultation (Routine) - Authorized Specialty Diagnoses / Procedures Referred By Lilli t Referred To Contact General Surgery Diagnoses History of abdominal hernia Jonathan Gonzalez MD [address] [facility] [address] [place] [address] Phone: tel: fax: Stephon Benavides MD [address] [facility] [address] [place] [address] Phone: tel: fax: Referral ID Status Reason Start Date Expiration Date Visits Requested Visits Authorized [id number] Authorized Specialty Services Required 07/29/2024 07/29/2025 1 1 [facility] Work Phone: summary note* Daksha Love: PERFORM Event Display: Patient Summary Documents Authored Date: [facility] summary note* Marilyn VERONIKA Francis Devang: PERFORM Event Display: Patient Summary Documents Authored Date: [id number] [facility] summary note* VERONIKA Connors: PERFORM Event Display: Patient Summary Documents Authored Date: [id number] [facility] summary of episode note* Barbara Michele RN: PERFORM Event Display: Outpatient Patient Summary Authored Date: [id number] Discharge Instructions Thank you for allowing [facility] to assist you with your healthcare needs. The following is importantdischarge information regarding your hospital visit. Your Care Team AARON DUQUE MD Your Diagnosis Acute post-operative pain What to do next Follow Up Appointments Follow Up with AARON DUQUE MD, Surgery When In 2 weeks Why: Call office to schedule follow up appointment. Where: [address] [facility] [place] [address] [phone] The Following Activity and Diet Have Been Ordered for You Discharge Activity - Ordered -- Sexual [place] Restricted No bending, twisting, crawling or squatt, [...] When Why Instructions Last Dose New acetaminophen-hydrocodone (Millbrook 325- 5 mg oral tablet) 1 tab(s) by mouth Every 4 hours as needed for Pain, scale 4-6 Acute post-operative pain Duration: 7 Days Pickup at [facility]/pharmacy #[id number] Unchanged carBAMazepine (TEGretol 200 mg oral tablet) 3 tab(s) by mouth Two (2) times a day Seizure Post-operative state s/p umbilical hernia repair, possible seizure following surgery Pharmacy Information [facility]/pharmacy #[id number]: [address], [place] [phone] Please take this list to your next [...] Document Reviewed: 06/21/2019 Elsevier Patient Education 2020 [employer] How To Use an Incentive Spirometer [...] as possible. If the spirometer includes a horse riding coach or instructor indicator, use this to guide you in [...] 10/13/2007 Document Revised: 06/25/2018 Document Reviewed: 04/15/2018 Elsevier Patient Education 2020 [employer] Inc. Surgical Drain Home Care Surgical drains [...] placed at your back, or any other yzor-mz-uqavz area, ask another person to assist you [...] and water are not available, use hand contact lens edge buffer. 3. Remove the old dressing. Avoid using [...] and water are not available, use hand contact lens edge buffer. 3. Loosen any pins or clips that [...] placed at your back, or any other pkzr-np-tjjsu area, ask another person to assist you. Contact your health care provider if you have redness, swelling, or pain around your drain area. This information is not intended to replace advice given to you by your health care provider. Make sure you discuss any questions you have with your health care provider. Document Released: 05/30/2001 Document Revised: 07/07/2019 Document Reviewed: 07/07/2019 ElseOrthAlign Patient Education 2020 [employer] Ryan Pantoja Drain Patient Education After [...] Document Reviewed: 06/03/2014 ExitCare Patient Information 2015 [employer]. This information is not intended to replace [...] garbage bag. Soap and water, or hand contact lens edge buffer. Wound cleanser or salt-water solution (saline). New [...] and water are not available, use hand contact lens edge buffer. 3. Set up a clean station for [...] and water are not available, use hand contact lens edge buffer. Clean your wound Wear gloves, protective clothing, [...] and water are not available, use hand contact lens edge buffer. Apply new dressing Wear gloves, protective clothing, [...] and water are not available, use hand contact lens edge buffer. 8. Turn the pump back on. The sponge dressing should collapse. Do not change the settings on the machine without talking to a health care provider. 9. Replace the container in the pump that collects fluid if it is full. Replace the container per the bowling ball patcher's instructions or at least once a week, [...] all clamps are open. Do not use wuxf-sfe-foummyl medicated or antiseptic creams, sprays, liquids, or [...] 08/24/2012 Document Revised: 09/24/2019 Document Reviewed: 08/20/2019 ElseOrthAlign Patient Education 2020 [employer] Nausea and Vomiting, Adult Nausea is the [...] water added (diluted fruit juice). Eat bland, djgq-ik-wpuway foods in small amounts as you are able. These foods include bananas, applesauce, rice, lean meats, toast, and crackers. Avoid fluids that contain a lot of sugar or caffeine, such as energy drinks, sports drinks, and soda. Avoid alcohol. Avoid spicy or fatty foods. General instructions Take zcla-enn-izbzjuj and prescription medicines only as told by your health care provider. Drink enough fluid to keep your urine pale yellow. Wash your hands often using soap and water. If soap and water are not available, use hand contact lens edge buffer. Make sure that all people in your [...] eating and drinking to prevent dehydration. Take nbzd-hyj-vfjjunr and prescription medicines only as told by [...] 06/02/2006 Document Revised: 09/24/2019 Document Reviewed: 11/10/2018 ElseOrthAlign Patient Education 2020 [employer] Monitored Anesthesia Care, Care After These [...] before eating solid foods. General instructions Take zwat-cpa-mltjwlk and prescription medicines only as told by [...] 09/22/2016 Document Revised: 08/31/2018 Document Reviewed: 09/22/2016 [employer] Patient Education 2020 [employer] Open Hernia Repair, Adult, Care After [...] and water are not available, use hand contact lens edge buffer. ? Change your dressing as told by [...] urine clear or pale yellow. ? Take ycim-vnj-wttyuzj or prescription medicines. ? Eat foods that are high in fiber, such as fresh fruits and vegetables, whole grains, and beans. ? Limit foods that are high in fat and processed sugars, such as fried and sweet foods. Take hupk-dub-rsawlur and prescription medicines only as told by [...] 12/20/2005 Document Revised: 05/15/2018 Document Reviewed: 11/13/2016 [employer] Patient Education 2020 [employer] Additional Information VACCINATE! IT SAVES LIVES! Members of the community who have not yet received the COVID-19 vaccine and would like to receive it can visit one of [facility] vaccine clinics. There are many vaccine clinic locations within the [facility]. For locations and available times, please visit [email or web address] It is important to note that some COVID mobile vaccine clinics are held outdoors and may be canceled in rainy or stormy conditions. To learn more about pediatric vaccinations (ages 5-11), we invite you to visit the [facility] webpage. [email or web address] learn more about the COVID-19 vaccine, we invite you to visit the [facility] website for a list of frequently asked questions. [email or web address] [facility] [employer] Patient Portal Access Instructions: Stay connected with your healthcare team and access your personal medical information anytime with the [facility] Patient Portal.If you would like a full copy of your medical records, please contact the [facility] Medical Records Department, Friday through Friday between 8a.m. and 4:30p.m. Please follow the directions below to access the portal: 1.Access the email account you provided upon registration to the [facility].2.Look for an invitation email from [facility].3.Open the email and access the invitation link: Accept Invitation to [employer]4.Fill in the required [place] to create your account. Sign into [email or web address] with your username and password that you [...] you will allow to register on the [facility] Patient Portal for access to your information. You can also access the [employer] Patient Portal on the [employer]. Simply click on Health Records under [employer] and then click on the [employer] logo. HOW TO SAFELY DISPOSE OF PRESCRIPTION [...] Call your local pharmacy or go to [email or web address] to find one close to you.3.Make use of household items: Use cat litter or old coffee grounds to dispose medications if other options arenot available. Mix your drugs with these household products, seal them in an airtight container andthrow it into the garbage. Call [facility]: [phone] to be sure your drugs can be [...] aware that I should contact my doctor. Patient/Ballet Professor Signature: Date/Time: Relationship to Patient: Witness Name/Signature: Date/Time: [facility] Summary Purpose Family History No Family History [...] No January 01, 2022 6:14pm Power of Webfocus Developer No January 01 6:14pm Advance Directive Response Recorded Date/ Time Advance Directives No July 05, 2017 11:20pm Living Will No July 04 12:18am Power of Webfocus Developer No July 04, 2023 12:18am Advance Directive Response Recorded Date/ Time Advance Directives No July 05, 2017 11:20pm Living Will No June 01, 1:14am Power of Webfocus Developer No June 01, 2023 1:14am Advance Directive Response Recorded Date/ Time Living Will No August 24, 2024 10:40pm Power of Webfocus Developer No August 24 10:40pm Advance Directives No July 06, 2017 12:20am Advance Directive Response Recorded Date/ Time Living Will No August 24, 2024 10:40pm Do you have a Healthcare Power of Webfocus Developer? No August 24, 2024 10:40pm Living Will No September 19, 2024 9:34pm Do you have a Healthcare Power of Webfocus Developer? No September 19, 2024 9:34pm Advance Directives No July 06, 2017 12:20am Advance Directive Response Recorded Date/ Time Living Will No August 24, 2024 10:40pm Do you have a Healthcare Power of Webfocus Developer? No August 24, 2024 10:40pm Living Will No September 19, 2024 9:34pm Do you have a Healthcare Power of Webfocus Developer? No September 19, 2024 9:34pm Do you have a Healthcare Power of Webfocus Developer? No December 06, 2024 11:19pm Advance Directives No July 06, 2017 12:20am Advance Directive Response Recorded Date/ Time Living Will No August 24, 2024 10:40pm Do you have a Healthcare Power of Webfocus Developer? No August 24, 2024 10:40pm Living Will No September 19, 2024 9:34pm Do you have a Healthcare Power of Webfocus Developer? No September 19, 2024 9:34pm Do you have a Healthcare Power of Webfocus Developer? No December 06, 2024 11:19pm Do you have a Healthcare Power of Webfocus Developer? No December 08, 2024 11:45pm Advance Directives No July 06, 2017 12:20am Advance Directive Response Recorded Date/ Time Living Will No September 19, 2024 9:34pm Do you have a Healthcare Power of Webfocus Developer? No September 19, 2024 9:34pm Do you have a Healthcare Power of Webfocus Developer? No December 06, 2024 11:19pm Do you have a Healthcare Power of Webfocus Developer? No December 08, 2024 11:45pm Do you have a Healthcare Power of Webfocus Developer? No December 29, 2024 9:30pm Advance Directives No July 06, 2017 12:20am [...] hand injury December 06, 2024 11:1 9pm Chief Complaint Admit Date shoulder pain August 24, 2024 9:0 2pm upper ext September 19, 2024 9:16 pm hand injury December 06, 2024 11:1 9pm HERNIA December 08, 2024 11:3 3pm Chief Complaint Admit Date upper ext September 19, 2024 9:16 pm hand injury December 06, 2024 11:1 9pm HERNIA December 08, 2024 11:3 3pm ABD PAIN December 29, 2024 9:21 pm Reason for Referral Specialty Diagnoses / Procedures Referred By Contac t Referred To Contact Neurosurgery Diagnoses Left lower quadrant abdominal pain Procedures CONSULT TO NEUROSURGERY Jese Richardson MD [address] [place] [address] Juliocesar Borrero MD, PhD [address] [place] [address] Referral ID Status Reason Start Date Expiration Date Visits Requested Visits Authorized [id number] Ref Not Required PCP Requested Referral 10/07/2023 10/06/2024 1 1 Specialty Diagnoses / Procedures Referred By Contac t Referred To Contact Diagnoses Preoperative examination Infected hernioplasty mesh, sequela Procedures REFER TO PACC - PRE ANESTHESIA CONSULTATION CLINIC OFFICE/OUTPATIENT [facility] 60 MINUTES Linda Griffiths, BORDER PATROL OFFICER.LEAD TECHNICAL ARCHITECT [address] [place], [place] [id number] Referral ID Status Reason Start Date Expiration Date Visits Requested Visits Authorized [id number] Authorized PCP Requested Referral 07/21/2023 07/20/2024 1 1 Specialty Diagnoses / Procedures Referred By Contac t [facility] Diagnoses Preoperative examination Infected hernioplasty mesh, sequela Procedures ECG COMPLETE ECG ROUTINE ECG W/LEAST 12 LDS W/I&R Linda Griffiths, BORDER PATROL OFFICER.LEAD TECHNICAL ARCHITECT [address] [place], [place] [id number] [facility] [place] [address] [place] [address] Referral ID Status Reason Start Date Expiration Date Visits Requested Visits Authorized [id number] Pending Review Auto-Generat ed Referral 07/21/2023 07/20/2024 1 1 Specialty Diagnoses / Procedures Referred By Contac t Referred To Contact Diagnoses Preoperative examination Infected hernioplasty mesh, sequela Procedures CONSULT TO [facility] BE[facility]ICINE OFFICE/OUTPATIENT [facility] 60 MINUTES Linda Griffiths, BORDER PATROL OFFICER.LEAD TECHNICAL ARCHITECT [address] [place], [place] [id number] Referral ID Status Reason Start Date Expiration Date Visits Requested Visits Authorized [id number] Authorized PCP Requested Referral 07/21/2023 07/20/2024 1 1 Specialty Diagnoses / Procedures Referred By Contac t Referred To Contact [facility] [place] Diagnoses Left lower quadrant abdominal pain Procedures CONSULT TO [facility]) OFFICE/OUTPATIENT [facility] 60 MINUTES Linda Griffiths, BORDER PATROL OFFICER.LEAD TECHNICAL ARCHITECT [address] [place], [place] [id number] Referral ID Status Reason Start Date Expiration Date Visits Requested Visits Authorized [id number] Pending Review PCP Requested Referral 07/18/2023 07/17/2024 1 1 Additional Source Comments (unrecognized sect ion and content) No Status Records FoundNo Status Records FoundNo Status Records FoundNo Status Records FoundNo Status Records FoundNo Status Records FoundNo Status Records FoundNo Status Records FoundNo Status Records FoundNo Status Records FoundNo Status Records Found INFORMATION SOURCE (unrecogn ized section and content) DATE CREATED AUTHOR 12/10/2017 [facility] DATE CREATED AUTHOR AUTHOR'S ORGANIZ ATION 12/10/2021 [facility] DATE CREATED AUTHOR AUTHOR'S ORGANIZ ATION 03/18/2022 [facility] DATE CREATED AUTHOR AUTHOR'S ORGANIZ ATION 04/30/2022 [facility] DATE CREATED AUTHOR AUTHOR'S ORGANIZ ATION 06/12/2022 [facility] DATE CREATED AUTHOR AUTHOR'S ORGANIZ ATION 06/15/2022 [facility] DATE CREATED AUTHOR AUTHOR'S ORGANIZ ATION 02/23/2023 [facility] DATE CREATED AUTHOR AUTHOR'S ORGANIZ ATION 10/16/2023 [facility] ([place]) DATE CREATED AUTHOR AUTHOR'S ORGANIZ ATION 11/07/2023 [facility] DATE CREATED AUTHOR AUTHOR'S ORGANIZ ATION 09/12/2024 [facility] DATE CREATED AUTHOR AUTHOR'S ORGANIZ ATION 01/06/2025 [facility] Care Team (unrecognized sect ion and content) Tensioning Machine Operator Relationship Specialty Start Date End Date Maddison Martin MD [address] [place] [address] PCP - General Internal Medicine 07/08/17 Tensioning Machine Operator Relationship Specialty Start Date End Date No, [...] Dr. Carlo Shea DO Attending Provider, Emergency Jeanette ortiz Active Team Status: Inactive Member Role Status Dates No Primary Care Physician Primary Care Provider Active Dr. Carlo Shea DO Emergency Provider Active Tensioning Machine Operator Relationship Specialty Start Date End Date Maddison Martin MD [address] [place], [place] [id number] PCP - General Internal Medicine 07/08/17 Jeffery Weber MD [address] [place] [address] General Surgery 06/13/23 Tensioning Machine Operator Relationship Specialty Start Date End Date Maddison Martin MD [address] [facility] [place] [place] [address] PCP - General Internal Medicine 07/08/17 Jeffery Weber MD [address] [place] [address] General Surgery 06/13/23 Tensioning Machine Operator Relationship Specialty Start Date End Date Maddison Martin MD [address] [facility] [place] [address] PCP - General Internal Medicine 07/08/17 Jeffery Weber MD [address] [place] [address] General Surgery 06/13/23 Tensioning Machine Operator Relationship Specialty Start Date End Date Maddison Martin MD [address] [facility] [place] [place] [address] PCP - General Internal Medicine 07/08/17 Jeffery Weber MD [address] [place] [address] General Surgery 06/13/23 Tensioning Machine Operator Relationship Specialty Start Date End Date Maddison Martin MD [address] [facility] [address] PCP - General Internal Medicine 07/08/17 Jeffery Weber MD [address] [place] [id number] General Surgery 06/13/23 Tensioning Machine Operator Relationship Specialty Start Date End Date Maddison Martin MD [address] [place] [address] PCP - General Internal Medicine 07/08/17 Jeffery Weber MD [address] [place] [id number] General Surgery 06/13/23 Tensioning Machine Operator Relationship Specialty Start Date End Date Maddison Martin MD [address] [place] [address] PCP - General Internal Medicine 07/08/17 Jeffery Weber MD [address] [place] [id number] General Surgery 06/13/23 Tensioning Machine Operator Relationship Specialty Start Date End Date Jonathan Gnozalez MD [address] [place], [place] [id number] Surgeon General Surgery 06/21/24 Tensioning Machine Operator Relationship Specialty Start Date End Date Jonathan Gonzalez MD [address] [place], [place] [id number] Surgeon General Surgery 06/21/24 Tensioning Machine Operator Relationship Specialty Start Date End Date Jonathan Gonzalez MD [address] [place] [address] [phone] (work) Surgeon General Surgery 06/21/24 Team Status: Active Member Role Status Dates No Primary Care Physician Primary Care Provider Active Team Status: Inactive Member Role Status Dates No Primary Care Physician Primary Care Provider Active Start: August 24, 2024 End: August 24, 2024 Dr. Cristian Barrera , Emergency Provider Active Start : August 24, 2024 End: August 24, 2024 Team Status: Active Member Role Status Dates Viola Starkey NP, MAKEUP ARTISTRY INSTRUCTOR-C Primary Care Provider Active Team Status: Inactive Member Role Status Dates Dr. Cristian Barrera DO Attending Provider Active Start : August 24, 2024 End: August 24, 2024 Dr. Cristian Barrera , Emergency Provider Active Start : August 24, 2024 End: August 24, 2024 Viola Starkey NP, MAKEUP ARTISTRY INSTRUCTOR-C Primary Care Provider Active Start: August 24, 2024 End: August 24, 2024 Team Status: Inactive Member Role Status Dates Viola Starkey NP, MAKEUP ARTISTRY INSTRUCTOR-C Primary Care Provider Active Start: September 19, 2024 End: September 19, 2024 Brian Maldonado MD Referring Provider Active Star t: September 19, 2024 End: September 19, 2024 Brian Maldonado MD Emergency Provider Active Star t: September 19, 2024 End: September 19, 2024 Team Status: Inactive Member Role Status Dates Viola Starkey NP, MAKEUP ARTISTRY INSTRUCTOR-C Primary Care Provider Active Start: September 19, [...] Member Role Status Dates Viola Starkey NP, MAKEUP ARTISTRY INSTRUCTOR-C Primary Care Provider Active Start: December 06, 2024 End: December 07, 2024 Dr. Guevara Choi MD Emergency Provider Active Start: December 06, 2024 End: December 07, 2024 Team Status: Inactive Member Role Status Dates Viola Starkey NP, MAKEUP ARTISTRY INSTRUCTOR-C Primary Care Provider Active Start: December 08, 2024 End: December 09, 2024 Dr. Guero Baker , Emergency Provider Active Start: December 08, 2024 End: December 09, 2024 Team Status: Active Member Role/Relationship Status Dates Viola Starkey MAKEUP ARTISTRY INSTRUCTOR, MAKEUP ARTISTRY INSTRUCTOR-C Primary Care Provider Active Team Status: Inactive Member Role/Relationship Status Dates Viola Starkey MAKEUP ARTISTRY INSTRUCTOR, MAKEUP ARTISTRY INSTRUCTOR-C Primary Care Provider Active Start: September 19, 2024 End: September 19, 2024 Brian Maldonado MD Attending Provider Active Star t: September 19, 2024 End: September 19, 2024 Brian Maldonado MD Referring Provider Active Star t: September 19, 2024 End: September 19, 2024 Brian Maldonado MD Emergency Provider Active Star t: September 19, 2024 End: September 19, 2024 Team Status: Inactive Member Role/Relationship Status Dates Viola Starkey MAKEUP ARTISTRY INSTRUCTOR, MAKEUP ARTISTRY INSTRUCTOR-C Primary Care Provider Active Start: December 06, 2024 End: December 07, 2024 Dr. Guevara Choi MD Attending Provider Active Start: December 06, 2024 End: December 07, 2024 Dr. Guevara Choi MD Emergency Provider Active Start: December 06, 2024 End: December 07, 2024 Team Status: Inactive Member Role/Relationship Status Dates Viola Starkey MAKEUP ARTISTRY INSTRUCTOR, MAKEUP ARTISTRY INSTRUCTOR-C Primary Care Provider Active Start: December 08, 2024 End: December 09, 2024 Dr. Guero Baker DO Attending Provider Active Start: December 08, 2024 End: December 09, 2024 Dr. Guero Baker DO Emergency Provider Active Start: December 08, 2024 End: December 09, 2024 Team Status: Inactive Member Role/Relationship Status Dates Viola Starkey MAKEUP ARTISTRY INSTRUCTOR, MAKEUP ARTISTRY INSTRUCTOR-C Primary Care Provider Active Start: December 29, 2024 End: December 29, 2024 Dr. Justin Cordero MD Emergency Provider Active S tart: December 29, 2024 End: December 29, 2024 Care Team (unrecognized sect ion and [...] or prosecute any alcohol or drug abuse patient.[facility] TownshipIn the event this information is protected by the Federal Confidentiality of Alcohol and Drug Abuse Patient Records regulations: The Federal rules restrict any use of the information to criminally investigate or prosecute any alcohol or drug abuse patient.[facility] TownshipIn the event this information is protected by the Federal Confidentiality of Alcohol and Drug Abuse Patient Records regulations: The Federal rules restrict any use of the information to criminally investigate or prosecute any alcohol or drug abuse patient.[facility] Township[facility] the event this information is protected by the Federal Confidentiality of Alcohol and Drug Abuse Patient Records regulations: The Federal rules restrict any use of the information to criminally investigate or prosecute any alcohol or drug abuse patient.[facility] TownshipIn the event this information is protected by the Federal Confidentiality of Alcohol and Drug Abuse Patient Records regulations: The Federal rules restrict any use of the information to criminally investigate or prosecute any alcohol or drug abuse patient.[facility] Township[facility] the event this information is protected by the Federal Confidentiality of Alcohol and Drug Abuse Patient Records regulations: The Federal rules restrict any use of the information to criminally investigate or prosecute any alcohol or drug abuse patient.[facility] Township[facility] the event this information is protected by the Federal Confidentiality of Alcohol and Drug Abuse Patient Records regulations: The Federal rules restrict any use of the information to criminally investigate or prosecute any alcohol or drug abuse patient.[facility] TownshipIn the event this information is protected by the Federal Confidentiality of Alcohol and Drug Abuse Patient Records regulations: The Federal rules restrict any use of the information to criminally investigate or prosecute any alcohol or drug abuse patient.[facility] Reason for Visit (unrecogniz ed section and [...] By Contac t Referred To Contact [facility] [place] / NEUROLOGY PAIN Diagnoses Left lower quadrant abdominal pain Procedures CONSULT TO [facility] (CHRONIC PAIN) OFFICE/OUTPATIENT NEW HIGH MDM 60 MINUTES Linda Griffiths APRN.LEAD TECHNICAL ARCHITECT [address] [id number] [facility] [address] [place] [address] Referral ID Status Reason Start Date Expiration Date V isits Requested Visits Authorized [id number] Closed PCP Requested Referral 07/21/2023 06/15/2024 1 [...] BE BASED ON THE PRIMARY CLINICAL RECORDS. [facility]. provides no warranty or guarantee of the accuracy or completeness of information in this document.
[2025-01-25 23:06] LABS: Hematocrit 44.9 % (40-54); Hemoglobin 15.4 g/dL (13.0-16.5); Immature Granulocytes Count 0.040 X10^3/uL (0.0-0.0); Mean Corp Hgb Conc 34.3 g/dL (32-36); Mean Corpuscular Volume 91.1 fL (80-94); Mean Platelet Vol. 9.8 fl (6.2-12.0); NRBC Flagged by Analyzer 0 % (0-5); POSITIVE MORPHOLOGY YES; Platelet Count 333 K/mm3 (150-450); RBC Distribution Width CV 13.2 % (11.6-14.6); RBC Distribution Width SD 43.5 fl (35.1-43.9); Red Blood Count 4.93 M/mm3 (4.6-6.2); White Blood Count 11.7 K/mm3 (4.4-11.0)
[2025-01-25] MEDS: 0.9% Normal Saline (1000mL) 1,000 ML 999 ML IV (23:10)
[2025-01-25 23:18] LABS: Differential Indicated SCAN CRITERIA MET
[2025-01-25 23:24] VITALS: BP 121/75; PULSE 89; RESP 16; TEMP 36.9; O2SAT 96
[2025-01-25 23:26] LABS: Lipase 31 U/L (13-75)
[2025-01-25 23:27] LABS: AST(SGOT) 18 U/L (<=37); Alanine Aminotransfer ALT/SGPT 14 U/L (<=46); Albumin, Serum 4.3 g/dL (3.5-5.0); Alkaline Phosphatase 40 U/L (40-129); Anion Gap 12 (5-15); BUN 10 mg/dL (4-19); BUN/Creat Ratio 11.4 RATIO (10-20); Bilirubin, Direct < 0.08 mg/dL (0.00-0.30); Calcium,Total 9.6 mg/dL (7.6-11.0); Carbon Dioxide 22.2 mmol/L (21.0-32.0); Chloride 104 mmol/L (98-108); Estimated Creatinine Clearance 165.23 ml/min (50-250); Globulin 3.1 g/dL (2.2-4.2); Glucose 90 mg/dL (70-99); Potassium 4.2 mmol/L (3.3-5.1)
[2025-01-26 00:05] VITALS: BP 140/90; PULSE 78; RESP 16; TEMP 36.7; O2SAT 97
--- NOTE | 2025-01-26 00:06 | EX.ED.DYSGE1 ---
HPI History of Present Illness Chief Complaint: Abd Pain Informant: patient and spouse/S.O. Narrative Narrative: Patient is a 45-year-old male who has a past medical history of a large ventral hernia. He states that he is scheduled to see a specialist and have it repaired but not for multiple months. 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 He denies any fevers or chills or trauma. However he has been having increasing pain along the mid abdomen radiating towards the left that is worse with motion. He states it is not being controlled with [id number] medications and therefore comes in for evaluation. The patient states that there has been no fevers or chills diarrhea constipation dysuria. He denies any nausea or vomiting either. He denies any known sick contacts [facility] Medical History Seroma after procedure Influenza due to influenza virus, type A, human Contact with or suspected exposure to other viral communicable disease Abdominal pain Sprain of left foot Left ankle sprain Strain of left knee Contusion of left knee Seizures Home Medications ?Medication ?Instructions ?Recorded ?Last Taken ?Type oxycodone-acetaminophen 5 mg-325 1 tab PO Q6H PRN pain 3 days #12 01/26/25 Unknown Rx mg tablet (Percocet) tabs Allergy/AdvReac Type Severity Reaction Status Date / Time adhesive tape Allergy Hives Verified 01/25/25 22:25 cephalexin monohydrate (From Allergy Anaphylaxis Verified 01/25/25 22:25 Keflex) levetiracetam (From Keppra) Allergy Hives Verified 01/25/25 22:25 morphine Allergy Shortness Verified 01/25/25 22:25 of breath naproxen (From Naprosyn) Allergy Hives Verified 01/25/25 22:25 Family History Grandmother Arthritis Mother Arthritis Seizures Father Colon cancer Diabetes Brother Heart disease Surgical History H/O hernia repair History of appendectomy Social History household members: spouse Smoking Status: Current every day smoker tobacco type: cigarettes alcohol intake: never ROS ROS ED Constitutional Constitutional ED: Denies chills or fever(s) ENT ENT ED: Denies sore throat Cardiovascular Cardiovascular: Denies chest pain Respiratory/Chest Respiratory/Chest: Denies cough or dyspnea Gastrointestinal Gastrointestinal: Reports abdominal pain; Denies constipation, diarrhea, melena, nausea or vomiting Genitourinary Genitourinary ED: Denies dysuria or hematuria Musculoskeletal Musculoskeletal: Denies back pain or myalgias Integumentary Denies rash Neurologic Neurologic: Denies headache(s) Hematologic/Lymphatic Hematologic/Lymphatic: Denies easy bleeding or easy bruising EXAM Physical Exam Const Vital Signs: 01/25/25 22:23 01/25/25 22:24 01/25/25 23:24 Temperature 98.8 F 98.8 F 98.4 F Temperature Source Oral Oral Oral Pulse Rate 94 94 89 Respiratory Rate 16 16 16 Blood Pressure 135/110 H 135/110 H 121/75 H Blood Pressure Mean 118 118 90 Pulse Ox 98 98 96 Oxygen Delivery Method Room Air Room Air 01/26/25 00:05 Temperature 98.0 F Temperature Source Pulse Rate 78 Respiratory Rate 16 Blood Pressure 140/90 H Blood Pressure Mean 106 Pulse Ox 97 Oxygen Delivery Method Positive well nourished, well developed and obese General Appearance ED: well developed; Negative for pallor Nutritional Appearance: obese HEENT HEENT Narrative: Normocephalic/atraumatic Eyes PERRL and EOMs intact bilaterally General Eye ED: Negative for scleral icterus Neck supple Resp normal respiratory effort Resp Narrative: Breath sounds are diminished throughout with faint expiratory wheeze consistent with history of smoking However no signs of respiratory distress Cardio regular rate and regular rhythm Rate: other Other Details: Radial and carotid pulses are equal and symmetric GI non-distended and no masses GI Narrative: Abdomen is soft and nondistended with normal active bowel sounds Patient has a large ventral hernia noted that is reducible in nature There is pain with palpation extending out from the ventral hernia towards the left upper and lower abdomen. No voluntary guarding or rigidity. No pulsatile mass or fluid wave. No peritoneal signs. No increased tympany Auscultation: normoactive bowel sounds Palpation: soft Back/Spine no CVA tenderness Extremity normal to inspection Neuro oriented x3, CN's II-XII intact bilaterally and no sensory deficits noted Sensorium / Orientation: alert Motor Exam: strength 5/5 throughout Psych mental status grossly normal Skin no rashes or lesions noted and no wounds General Skin Exam: Negative for jaundice or pallor MDM MDM MDM Narrative Medical decision making narrative: Patient arrived to the ER with stable vitals. He reported pain from the known hernia moving out of the left which is worse with motion. With his report of looking up and moving the trailer recently this is most likely pain from an abdominal wall strain and potentially enlargement of the hernia. In order to ensure this is not from pancreatitis or biliary colic or potential secondary infection I did elect to perform basic laboratory studies. White count is slightly elevated at 11.7 but this increased by 0.4 is not clinically significant and neutrophil count is normal. Lipase is normal going against pancreatitis and liver enzymes are normal going against a biliary cause. Lactic acid is also normal going against potential obstruction or ischemia. After receiving medication in the ER he reported feeling better and his abdomen remains soft and nonsurgical. Therefore I do not feel the need for further intervention and he is otherwise safe for discharge History & Record Review Discussion w/independent historian: Patient and Significant other Lab Data Attestation: I reviewed the patient's lab results. Labs: Laboratory Results - last 24 hr 01/25/25 01/25/25 22:30 23:10 WBC 11.7 H RBC 4.93 Hgb 15.4 Hct 44.9 MCV 91.1 MCH 31.2 MCHC 34.3 RDW Std Deviation 43.5 RDW Coeff of Nory 13.2 Plt Count 333 MPV 9.8 Immature Gran % (Auto) 0.300 Neut % (Auto) 54.3 Lymph % (Auto) 36.6 [place] % (Auto) 5.1 Eos % (Auto) 2.8 Baso % (Auto) 0.9 Absolute Neuts (auto) 6.3 Absolute Lymphs (auto) 4.28 Nucleated RBC % 0 Differential Comment SCANNED Platelet Estimate ADEQUATE RBC Morphology NORM C+C Sodium 139 Potassium 4.2 Chloride 104 Carbon Dioxide 22.2 Anion Gap 12 BUN 10 Creatinine 0.88 Estim Creat Clear Calc 165.23 Est GFR (MDRD) Non-Af 107 BUN/Creatinine Ratio 11.4 Glucose 90 Lactic Acid 1.1 Calcium 9.6 Total Bilirubin 0.17 Direct Bilirubin < 0.08 AST 18 ALT 14 Alkaline Phosphatase 40 Total Protein 7.3 Albumin 4.3 Globulin 3.1 Lipase 31 Discharge Plan Triage Chief Complaint: Abd Pain ED Provider: Guero Baker Dx/Rx/DC Orders Clinical Impression: Ventral hernia, Abdominal wall strain, Tobacco use Instructions: ED Hernia (Adult), ED Muscle Strain, Abdomen Prescriptions: New oxycodone-acetaminophen [Percocet] 5-325 mg tablet 1 tab PO Q6H PRN (Reason: pain) 3 Days Qty: 12 0RF Primary Care Provider: Viola Starkey NP Referrals: Viola Starkey NP, [employer] [Primary Care Provider] - Print Language: Czech Disposition Disposition: Home, Self Care Discharge Date/Time: 01/26/25 00:17
[2025-01-26 00:26] LABS: Differential Comment SCANNED; Red Cell Morphology NORM C+C NORMAL (NORM C&C)
== END 2025-01-26 00:17 | disposition home or self-care (01) ==
PROVIDERS: Emergency Provider Emergency Medicine; PCP Nurse Practitioner Family; Visit Provider Emergency Medicine
DX: S39.011A Strain of muscle, fascia and tendon of abdomen, initial encounter (principal); K43.9 Ventral hernia without obstruction or gangrene; Z90.49 Acquired absence of other specified parts of digestive tract; F17.210 Nicotine dependence, cigarettes, uncomplicated; X50.0XXA Overexertion from strenuous movement or load, initial encounter; Y93.89 Activity, other specified
CPT/HCPCS: 80048; 80076; 83605; 83690; 85025; 96361; 96374; 96375; 99283; A4216; J2405

== ENCOUNTER 2025-02-17 21:20 | Emergency (ER) | payer MEDICAID, SELFPAY ==
[2025-02-17 21:21] VITALS: BP 156/96; PULSE 116; RESP 18; TEMP 36.9; O2SAT 99; BMI 43.9
[2025-02-17] MEDS: 0.9% Normal Saline (1000mL) 1,000 ML 999 ML IV (22:18)
--- NOTE | 2025-02-17 22:22 | EDS_ITS ---
HPI History of Present Illness Chief Complaint: Abd Pain Informant: patient Narrative Narrative: Patient is a 45-year-old male with past medical history of a large ventral hernia. He states he is following with a specialist at [facility] and is scheduled to have the hernia fixed in mid March. He states there has been no fevers chills nausea vomiting diarrhea or constipation. He states has been no recent trauma or excessive activity. However this evening he developed midepigastric abdominal pain that was more intense than his baseline pain from his hernia and secondary to this comes in for evaluation. PFSH PFS Medical History Seroma after procedure Influenza due to influenza virus, type A, human Contact with or suspected exposure to other viral communicable disease Abdominal pain Sprain of left foot Left ankle sprain Strain of left knee Contusion of left knee Seizures Home Medications ?Medication ?Instructions ?Recorded ?Last Taken ?Type oxycodone-acetaminophen 5 mg-325 1 tab PO Q6H PRN pain 3 days #12 01/26/25 Unknown Rx mg tablet (Percocet) tabs oxycodone-acetaminophen 5 mg-325 1 tab PO Q6H PRN pain 3 days #12 02/17/25 Unknown Rx mg tablet (Percocet) tabs Allergy/AdvReac Type Severity Reaction Status Date / Time adhesive tape Allergy Hives Verified 02/17/25 21:22 cephalexin monohydrate (From Allergy Anaphylaxis Verified 02/17/25 21:22 Keflex) levetiracetam (From Keppra) Allergy Hives Verified 02/17/25 21:22 morphine Allergy Shortness Verified 02/17/25 21:22 of breath naproxen (From Naprosyn) Allergy Hives Verified 02/17/25 21:22 Family History Grandmother Arthritis Mother Arthritis Seizures Father Colon cancer Diabetes Brother Heart disease Surgical History H/O hernia repair History of appendectomy Social History household members: spouse Smoking Status: Current every day smoker tobacco type: cigarettes alcohol intake: never ROS ROS ED Constitutional Constitutional ED: Denies chills or fever(s) ENT ENT ED: Denies sore throat Cardiovascular Cardiovascular: Denies chest pain Respiratory/Chest Respiratory/Chest: Denies cough or dyspnea Gastrointestinal Gastrointestinal: Reports abdominal pain; Denies constipation, diarrhea, nausea or vomiting Genitourinary Genitourinary ED: Denies dysuria or hematuria Musculoskeletal Musculoskeletal: Denies back pain or myalgias Integumentary Denies rash Neurologic Neurologic: Denies headache(s) Hematologic/Lymphatic Hematologic/Lymphatic: Denies easy bleeding or easy bruising EXAM Physical Exam Const Vital Signs: 02/17/25 21:21 02/18/25 00:05 Temperature 98.4 F 98.7 F Temperature Source Oral Pulse Rate 116 H 90 Respiratory Rate 18 18 Blood Pressure 156/96 H 136/69 H Blood Pressure Mean 116 91 Pulse Ox 99 96 Oxygen Delivery Method Room Air Positive well nourished, well developed and obese General Appearance ED: well developed; Negative for pallor Nutritional Appearance: obese HEENT HEENT Narrative: Normocephalic atraumatic Eyes PERRL and EOMs intact bilaterally General Eye ED: Negative for scleral icterus Neck supple Resp normal respiratory effort and clear to auscultation bilaterally Cardio regular rhythm Rate: tachycardic and other Other Details: Tachycardic rate with regular rhythm Radial and carotid pulses are equal and symmetric GI non-distended GI Narrative: Abdomen is soft and nondistended with normal active bowel sounds. Patient has a large ventral hernia noted. There is intestine protruding through the site but it appears reducible in nature. No peritoneal signs. No pulsatile mass. Auscultation: normoactive bowel sounds Palpation: soft Back/Spine no CVA tenderness Extremity normal to inspection Neuro oriented x3, CN's II-XII intact bilaterally and no sensory deficits noted Sensorium / Orientation: alert Motor Exam: strength 5/5 throughout Psych mental status grossly normal Skin no rashes or lesions noted and no wounds General Skin Exam: Negative for jaundice or pallor MDM MDM MDM Narrative Medical decision making narrative: Patient arrived to the ER hypertensive but otherwise with stable vitals. He reported midepigastric abdominal pain which is similar nature to previous exacerbations from his hernia. Differential diagnosis is for pancreatitis for versus biliary colic or acute cholecystitis versus intestinal incarceration or strangulation. Basic blood work was obtained and shows no lactic acidosis going against incarceration or strangulation. The fact that on a physical exam they can reduce the ventral hernia as well goes against this. Lipase is normal going against pancreatitis and liver enzymes are normal going against a biliary issue. Patient's white count was slightly elevated but this is most likely stress response as physical exam does not reveal any signs of infection. After treatment in the ER patient reports resolution of his pain and on reevaluation his abdomen is soft and nonsurgical and the hernia remains reducible. Therefore at this time as he does not have signs of incarceration or strangulation and patient's symptoms have improved with treatment in the ER I do not feel there is need for further intervention and he is otherwise safe for discharge History & Record Review Discussion w/independent historian: Patient Lab Data Attestation: I reviewed the patient's lab results. Labs: Laboratory Results - last 24 hr 02/17/25 02/17/25 22:14 22:15 WBC 12.9 H RBC 4.55 L Hgb 14.3 Hct 41.2 MCV 90.5 MCH 31.4 MCHC 34.7 RDW Std Deviation 42.5 RDW Coeff of Nory 12.8 Plt Count 320 MPV 9.2 Immature Gran % (Auto) 0.400 Neut % (Auto) 62.1 Lymph % (Auto) 27.8 [place] % (Auto) 7.0 Eos % (Auto) 2.0 Baso % (Auto) 0.7 Absolute Neuts (auto) 8.0 H Absolute Lymphs (auto) 3.60 Nucleated RBC % 0 Sodium 138 Potassium 3.7 Chloride 102 Carbon Dioxide 24.1 Anion Gap 12 BUN 9 Creatinine 0.91 Estim Creat Clear Calc 159.78 Est GFR (MDRD) Non-Af 106 BUN/Creatinine Ratio 10.1 Glucose 106 H Lactic Acid 1.3 Calcium 9.0 Total Bilirubin 0.35 Direct Bilirubin 0.12 AST 24 ALT 19 Alkaline Phosphatase 38 L Total Protein 7.0 Albumin 4.0 Globulin 3.0 Lipase 50 Discharge Plan Triage Chief Complaint: Abd Pain ED Provider: Guero Baker Dx/Rx/DC Orders Clinical Impression: Ventral hernia, Abdominal pain, Tobacco use Instructions: Abdominal Pain, ED Hernia (Adult) Prescriptions: New oxycodone-acetaminophen [Percocet] 5-325 mg tablet 1 tab PO Q6H PRN (Reason: pain) 3 Days Qty: 12 0RF No Action oxycodone-acetaminophen [Percocet] 5-325 mg tablet 1 tab PO Q6H PRN (Reason: pain) 3 Days Qty: 12 0RF Primary Care Provider: Viola Starkey NP Referrals: Viola Starkey NP, [employer] [Primary Care Provider] - Activity Restrictions/Additional Instructions: Please follow-up with your family doctor and/or surgeon for repeat evaluation and return to the ER should you have any further concerns Print Language: Tajik Disposition Disposition: Home, Self Care Discharge Date/Time: 02/18/25 00:08
--- OUTSIDE RECORDS SUMMARY | 2025-02-17 22:25 | XMS RPT_ITS | CCD ---
Author Organization [facility] CliniSyny Care Team Providers Care Hand Deicer Element Winder Name Role Phone JOSH HELTON Unavailable Unavailable MADDISON MARTIN Unavailable Unavailable CIELO ALANIZ Unavailable Unavailable MILDRED GALLARDO Unavailable Unavailable MADDISON MARTIN Unavailable Unavailable MADDISON MARTIN Unavailable Unavailable DR MADDISON MARTIN MD Primary Care Physician PHYSICIAN, NONE Primary Care Physician Unavailab Maddison Cowan MD Primary Care Provider [phone] Unavailable Primary Care Provider Unavailabl e PROVIDER, [...] Admitting Unavailable NO, PHYSICIAN Primary Care Unavailable AAORN IVEY Attending Unavailable NO, PHYSICIAN Primary Care [...] DAVONTE ONEILL MD Attending Unavail able LALITO GIRALDON-IN CLASS SPECIAL EDUCATION TEACHER, VIOLA Siddiqi Primary Care Unavai lable [place] [...] Care Unavai labDr. Cristian Marshall Attending Provider [phone] Starkey FACING MACHINE OPERATOR-C, [facility] Primary Care Provider Joel JEONG, Brian Referring Provider Joel JEONG, Brian Emergency Provider Joel JEONG, Brian Attending Provider Jimbo JEONG, Dr. Waterman Emergency Provider Dr. Guero Baker DO Emergency Provider Starkey FACING MACHINE OPERATOR-C, [facility] Primary Care Provider Jimbo JEONG, Dr. Waterman Attending Provider Samuel PLATA, Dr. Jack Attending Provider Gil JEONG, Dr. Anderson Emergency Provider Starkey FACING MACHINE OPERATOR-C, [facility] Primary Care Provider Gil JEONG, Dr. Anderson Attending Provider Guero Baker Attending Unavailable Starkey FACING MACHINE OPERATOR, [facility] Primary Care Unavailable Guevara Choi Attending Unavailable Care Physician, No Primary Primary Care Unava ilable Starkey FACING MACHINE OPERATOR, [facility] Primary Care Unavailable Cristian Barrera Attending Unavailable Starkey FACING MACHINE OPERATOR, [facility] Primary Care Unavailable Brian Maldonado Attending Unavailable Brian Maldonado Referring Unavailable Guevara Choi Attending Unavailable Starkey FACING MACHINE OPERATOR, [facility] Primary Care Unavailable Guero Baker Attending Unavailable Starkey FACING MACHINE OPERATOR, [facility] Primary Care Unavailable Justin Cordero Attending Unavailable Starkey FACING MACHINE OPERATOR, [facility] Primary Care Unavailable Allergies Allergy Classification Reported Allergen(s) Allergy Type Date of Onset Reaction(s) Facility (20 sources) Cephalexin; Translations: [cephalexin] Drug Allergy 11-13-19 17 [facility] (20 sources) levETIRAcetam; Translations: [levetiracetam] Drug Allergy 10-24-19 17 [facility] ([facility] Morphine; Translations: [morphine] Drug Allergy 10-24-19 17 [facility] (20 sources) Naproxen; Translations: [naproxen] Drug Allergy 07-08-19 18 [facility] (20 sources) Tape, Paper Propensity to adverse reactions to substance Rash [facility] (10 sources) Cephalexin; Translations: [cephalexin monohydrate] Drug Allergy 09-24-19 19 Anaphylaxis [facility] (2 sources) PAPER TAPE; Translations: [PAPER TAPE] Allergy to substance 09-24-19 [facility] (9 sources) Adhesive Tape-Silicones; Translations: [ADHESIVE TAPE-SILICONES] Drug Allergy 10-24-19 [facility] (11 sources) Adhesive Tape Propensity to adverse reactions to drug 03-08-20 [facility] Comment on above: PAPER TAPE (1 source) levETIRAcetam Drug Allergy [facility] (1 source) Morphine Drug Allergy [facility] (1 source) Naproxen Drug Allergy [facility] (2 sources) Levetiracetam Allergy to substance 10-24-19 [facility] (2 sources) Wound Dressing Adhesive Drug Intolerance 03-08-20 [facility] (1 source) Adhesive agent Drug Intolerance 03-08-20 22 [facility] (1 source) Adhesive Tape Drug allergy (disorder) 01-26-20 25 [facility] Repository (1 source) levETIRAcetam Drug Allergy 01-26-20 25 [facility] (1 source) Morphine Drug Allergy 01-26-20 25 [facility] (1 source) Naproxen Drug Allergy 01-26-20 25 [facility] Medications Current Medications Medication Drug [...] / oxyCODONE hydrochloride 5 mg oral tablet (20 sources) Opioid Agonist Start: 01-26-2025 take 1 tablet by mouth every six hours as needed for pain Oxycodone-Acetaminophen (Percocet) 5-325 mg tablet Active 1 {tbl} PO EVERY 6 HOURS as needed for pain 12 3 0 January 26, 2025 Strain of abdominal wall Ventral hernia Strain of muscle, fascia and tendon of abdomen, initial encounter Ventral hernia without obstruction or gangrene Start: 09-11-2023 End: 09-14-2023 take 1 tablet [...] NEEDED as needed for Pain 12 3 0 October 05, 2018 12:00am October 07, 2018 12:00am October 08, 2018 12:09am Abdominal pain Unspecified abdominal pain Start: 10-05-2018 End: 10-08-2018 take 1 tablet by mouth every six hours as needed Oxycodone-Acetaminophen Discontinued 1 TABLET PO EVERY 6 HOURS NEEDED 12 3 October 04, 2018 11:00pm October 07, 2018 11:09pm Start: 09-25-2018 End: 09-30-2018 Oxycodone-Acetaminophen 1 TA BLET tablet Discontinued 1 - 2 {tbl} PO EVERY 6 HOURS NEEDED as needed for Pain 25 5 September 25, 2018 12:00am September 29, 2018 [...] on above: Take 1 tablet by hien th twice daily. gabapentin 800 mg oral tablet [...] 26, 2016 11:00pm take 1 capsule by [facility] three times daily gabapentin (NEURONTIN) 100 MG capsule Take 100 mg by mouth 3 times daily. 0 Active Comment on above: Take 1 capsule by [facility] three times daily for 90 days. Take 1 capsule by [facility] three times a day for 90 days. [place] (Nk) (4 sources) Start: [place] (Nk) Active September 19, 2024 12:00am ondansetron [...] June 01, 2023 Start: 07-18-2022 End: 07-25-2022 [place] 325- 5 mg oral tablet Dose = 1 tab(s), Oral, q4h, PRN Pain, scale 4-6, X 7 day(s), # 28 tab(s), 0 Refill(s), Pharmacy: [id number], Acute post-operative pain, 188, cm, 07/18/22 7:07:00 [...] every six hours as needed for pain [place] 325- 5 mg oral tablet Dose = 1 tab(s), Oral, q6h, PRN as needed for pain, X 3 day(s), # 12 tab(s), 0 Refill(s), Hematoma, 134 Start Date: 12/21/21 Stop Date: 12/24/21 Status: Ordered Start: 11-30-2021 End: 12-03-2021 take 1 tablet by mouth every six hours as needed for pain [place] 325- 5 mg oral tablet Dose = 1 tab(s), Oral, q6h, PRN As needed for severe pain, X 3 day(s), # 12 tab(s), 0 Refill(s), Postoperative abdominal pain, 141.1 Start Date: 11/30/21 Stop Date: 12/03/21 Status: Ordered Start: 10-06-2021 End: 10-09-2021 take 1 tablet by mouth every six hours [place] 325- 5 mg oral tablet Dose = 1 tab(s), Oral, q6h, # 12 tab(s), 0 Refill(s), Umbilical hernia, 146.5 Start Date: 10/06/21 Stop Date: 10/09/21 Status: Ordered benzonatate 100 mg oral capsule (8 sources) Non-narcotic Antitussive Start: 05-28-2022 End: 09-19-2024 take 2 capsules by mouth three times daily as needed for cough Benzonatate 100 mg capsule Discontinued 200 mg PO THREE TIMES A DAY as needed for cough 30 0 May 28, 2022 1:00am September 19, 2024 9:33pm Start: 05-28-2022 take 200 mg by mouth three times daily Benzonatate Active 200 MG PO THREE TIMES A DAY May 28, 2022 12:00am ibuprofen 600 mg oral tablet (15 sources) Nonsteroidal Anti-inflammatory Drug Start: 02-25-2024 End: 09-19-2024 take 1 tablet by mouth every eight hours as needed for pain Ibuprofen 600 MG tablet Discontinued 600 mg PO Q8H as needed for Pain 15 February 25, 2024 12:37am September 19, 2024 9:33pm Start: 10-05-2018 End: 02-25-2024 take 1 tablet by mouth every six hours as needed for pain Ibuprofen 600 MG tablet Discontinued 600 mg PO EVERY 6 HOURS NEEDED as needed for Pain 20 0 October 05, 2018 12:00am February 25, 2024 [...] eric padilla predniSONE 20 mg oral tablet (6 sources) Start: 5 End: 5 take 3 [...] Episodic Complication of device; implant or graft (14 sources) Infected hernioplasty mesh; Translations: [Infection and inflammatory reaction due to other internal prosthetic devices, implants and grafts, initial encounter] Onset: 4 07-04-2023 Episodic Complications of surgical procedures or medical care (20 sources) Postoperative hematoma formation; Translations: [Postoperative hematoma] 12-13-2021 Episodic E Codes: Fall (5 sources) Fall from ladder; Translations: [Fall on and from ladder, initial encounter] 09-19-2024 Episodic E Codes: Fall (20 sources) Fall 09-05-2017 Epilepsy; convulsions (20 sources) Seizure; Translations: [Post traumatic seizures] Onset: 7 09-09-2013 Episodic Esophageal disorders (20 sources) Gastroesophageal reflux disease 09-09-2013 Chronic Essential hypertension (2 sources) Hypertensive disorder; Translations: [Essential (primary) hypertension] 12-17-2024 Chronic Fluid and electrolyte disorders (1 source) Hypo-osmolality and or hyponatremia; Translations: [Hypo-osmolality and hyponatremia] Onset: 3 Episodic Headache; including migraine (2 sources) Headache; including migraine; Translations: [Headache, unspecified] Onset: 2 Immunizations and screening for infectious disease (8 sources) Contact with and (suspected) exposure to other viral communicable diseases; Translations: [Contact with or suspected exposure to other viral communicable disease] 06-12-2023 Episodic Influenza (8 sources) Influenza due to Influenza A virus; Translations: [Influenza due to other identified influenza virus with other respiratory manifestations] 06-12-2023 Episodic Intestinal obstruction without hernia (1 source) Intestinal obstruction; Translations: [Ileus, unspecified] Onset: 3 Episodic Nausea and vomiting (1 source) Nausea and vomiting; Translations: [Nausea with vomiting, unspecified] Onset: 3 Episodic Other aftercare (2 sources) Other press tender long goods (current) drug therapy; Translations: [Other penitentiary (current) drug therapy] Onset: 2 Episodic Other bone disease and musculoskeletal deformities (5 sources) Clavicle pain; Translations: [Other specified disorders of bone, shoulder] 09-19-2024 Episodic Other connective tissue disease (6 sources) Tendinitis of long head of biceps [...] injuries and conditions due to external causes (6 sources) Injury of right shoulder; Translations: [Unspecified injury of right shoulder and upper arm, initial encounter] 08-24-2024 Episodic Other lower respiratory disease (1 source) Cough; Translations: [Cough, unspecified] Onset: 2 Episodic Other nervous system disorders (10 sources) Postoperative pain ; Translations: [Other acute postprocedural pain] Onset: 3 Episodic Other non-traumatic joint disorders (1 source) Shoulder pain; Translations: [Pain in right shoulder] Episodic Other nutritional; endocrine; and metabolic disorders [...] use] Onset: 4 Episodic Sprains and strains (20 sources) Strain of knee; Translations: [Strain of unspecified muscle(s) and tendon(s) at lower leg level, left leg, initial encounter] Onset: 2 Episodic Substance-related disorders (2 sources) Nicotine dependence, unspecified, uncomplicated; Translations: [Nicotine dependence, unspecified, uncomplicated] Onset: 2 Chronic Superficial injury; contusion (20 sources) Contusion of knee; Translations: [Contusion of [...] [Bicipital tendinitis, right shoulder] Onset: 09-02-2024 Episodic Other non-traumatic joint disorders (2 sources) Pain in right shoulder; Translations: [Pain in right shoulder] Onset: 04-25-2022 Episodic Unclassified (1 source) HERNIA//HERNIA, UMBILICAL Onset: 12-16-2016 Results Test Name Value Interpretation Reference Range Facility CBC W/Diff, Automatedon 01-14 PLT EST ADEQUATE Normal ADEQ [facility] Comment on above: Performed By: #### L 500.2500, L500.3400, L100.0100, L501.2450, L503.6005 #### [facility] [address] [place], [place], [id number] RED CELL MORPH NORM C+C Normal NORM C C [facility] Comment on above: Performed By: #### L 500.2500, L500.3400, L100.0100, L501.2450, L503.6005 #### [facility] [address] [place], [address] SMEAR COMMENT SCANNED Normal [facility] Comment on above: Performed By: #### L 500.2500, L500.3400, L100.0100, L501.2450, L503.6005 #### [facility] [address] [place], [address] Emergency Department Summary on 01-26-2025 Emergency Department Summary [facility] Medical Records Department [address] [place] [address] Emergency Department Summary 01/26/25 MR#: [id number] Acct: [id number] Name: PATRICK KOROMA Rep #: [id number] : 1980 45 From: Guero Baker DO PCP: ERIC Anaya Status:DEP ER Location: ED HPI History of Present Illness Chief Complaint: Abd Pain Informant: patient and spouse/S.O. Narrative Narrative: Patient is a 45-year-old male who has a past medical history of a large ventral hernia. He states that he is scheduled to see a specialist and have it repaired but not for multiple months. 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 He denies any fevers or chills or trauma. However he has been having increasing pain along the mid abdomen radiating towards the left that is worse with motion. He states it is not being controlled with usye-ass-catlgxx medications and therefore comes in for evaluation. The patient states that there has been no fevers or chills diarrhea constipation dysuria. He denies any nausea or vomiting either. He denies any known sick contacts [facility] Medical History Seroma after procedure Influenza due to influenza virus, type A, human Contact with or suspected exposure to other viral communicable disease Abdominal pain Sprain of left foot Left ankle sprain Strain of left knee Contusion of left knee Seizures Home Medications ???Medication ???Instructions ???Recorded ???Last Taken ???Type oxycodone-acetaminoph en 5 mg-325 1 tab PO Q6H PRN pain 3 days #12 0 01/26/25 Unknown Rx mg tablet (Percocet) tabs Allergy/AdvReac Type Severity Reaction Status Date / Time adhesive tape Allergy Hives Verified 01/25/25 22:25 cephalexin monohydrate (From Allergy Anaphylaxis Verified 01/25/25 22:25 Keflex) levetiracetam (From Keppra) Allergy Hives Verified 01/25/25 22:25 morphine Allergy Shortness Verified 01/25/25 22:25 of breath naproxen (From Naprosyn) Allergy Hives Verified 01/25/25 22:25 Family History Grandmother Arthritis Mother Arthritis Seizures Father Colon cancer Diabetes Brother Heart disease Surgical History H/O hernia repair History of appendectomy Social History household members: spouse Smoking Status: Current every day smoker tobacco type: cigarettes alcohol intake: never ROS ROS ED Constitutional Constitutional ED: Denies chills or fever(s) ENT ENT ED: Denies sore throat Cardiovascular Cardiovascular: Denies chest pain Respiratory/Chest Respiratory/Chest: Denies cough or dyspnea Gastrointestinal Gastrointestinal: Reports abdominal pain; Denies constipation, diarrhea, melena, nausea or vomiting Genitourinary Genitourinary ED: Denies dysuria or hematuria Musculoskeletal Musculoskeletal: Denies back pain or myalgias Integumentary Denies rash Neurologic Neurologic: Denies headache(s) Hematologic/Lymphatic Hematologic/Lymphatic : Denies easy bleeding or easy bruising EXAM Physical Exam Const Vital Signs: 01/25/25 22:23 01/25/25 22:24 01/25/25 23:24 Temperature 98.8 F 98.8 F 98.4 F Temperature Source Oral Oral Oral Pulse Rate 94 94 89 Respiratory Rate 16 16 16 Blood Pressure 135/110 H 135/110 H 121/75 H Blood Pressure Mean 118 118 90 Pulse Ox 98 98 96 Oxygen Delivery Method Room Air Room Air 01/26/25 00:05 Temperature 98.0 F Temperature Source Pulse Rate 78 Respiratory Rate 16 Blood Pressure 140/90 H Blood Pressure Mean 106 Pulse Ox 97 Oxygen Delivery Method Positive well nourished, well developed and obese General Appearance ED: well developed; Negative for pallor Nutritional Appearance: obese HEENT HEENT Narrative: Normocephalic/atrauma tic Eyes PERRL and EOMs intact bilaterally General Eye ED: Negative for scleral icterus Neck supple Resp normal respiratory effort Resp Narrative: Breath sounds are diminished throughout with faint expiratory wheeze consistent with history of smoking However no signs of respiratory distress Cardio regular rate and regular rhythm Rate: other Other Details: Radial and carotid pulses are equal and symmetric GI non-distended and no masses GI Narrative: Abdomen is soft and nondistended with normal active bowel sounds Patient has a large ventral hernia noted that is reducible in nature There is pain with palpation extending out from the ventral hernia towards the left upper and lower abdomen. No voluntary guarding or rigidity. No pulsatile mass or fluid wave. No peritoneal sign (more content not included)... Normal [facility] Absolute lymphocyte countOrd ered By: Guero Baker on 01-25-2025 Lymphocytes Auto (Unsp spec) [#/Vol] 4.28 10*3/uL 0.83-4.51 [facility] Absolute neutrophil countOrd ered By: Guero Baker on 01-25-2025 Neutrophils (Bld) [#/Vol] 6.3 10*3/uL 2.0-7.7 [facility] Anion gap in Serum or Plasma Ordered By: Guero Baker on 01-25-2025 Anion gap [Moles/Vol] 12 mmol/L 5-15 [facility] Automated lymphocyte count a s percentage of total leukocytesOrdered By: Guero Baker on 01-25-2025 Lymphocytes/100 WBC Auto (Unsp spec) 36.6 % - [facility] BUN/creatinine ratioOrdered By: Guero Baker on 01-25-2025 Urea nitrogen/Creatinine [Mass ratio] 11.4 mg/mg - [facility] Basic Metabolic Profile (BMP )on 01-25-2025 BUN/CRE 11.4 RATIO Normal 10-20 [facility] Comment on above: Performed By: #### L 500.2500, L500.3400, L100.0100, L501.2450, L503.6005 ####[facility] [address] [place], [address] Calcium [Mass/Vol] 9.6 mg/dL Normal 7.6-11.0 [facility] Comment on above: Performed By: #### L 500.2500, L500.3400, L100.0100, L501.2450, L503.6005 ####[facility] [address] [place], [address] Chloride [Moles/Vol] 104 mmol/L Normal 98-108 [facility] Comment on above: Performed By: #### L 500.2500, L500.3400, L100.0100, L501.2450, L503.6005 ####[facility] [address] [place], [address] CO2 [Moles/Vol] 22.2 mmol/L Normal 21.0-32.0 [facility] Comment on above: Performed By: #### L 500.2500, L500.3400, L100.0100, L501.2450, L503.6005 ####[facility] [address] [place], [address] Creatinine [Mass/Vol] 0.88 mg/dL Normal 0.70-1.20 [facility] Comment on above: Performed By: #### L 500.2500, L500.3400, L100.0100, L501.2450, L503.6005 ####[facility] [address] [place], [address] ECRCL 165.23 ml/min Normal 50-250 [facility] Comment on above: Performed By: #### L 500.2500, L500.3400, L100.0100, L501.2450, L503.6005 ####[facility] [address] [place], [address] GAP 12 Normal 5-15 [facility] Comment on above: Performed By: #### L 500.2500, L500.3400, L100.0100, L501.2450, L503.6005 ####[facility] [address] [place], [address] GFR/1.73 sq M.predicted among non-blacks MDRD (S/P/Bld) [Vol rate/Area] 107 mL/min/{1.73_m2} Normal >60 [facility] Comment on above: Result Comment: mL/m in/1.73m2 CKD-EPI Creatinine Equation (2020) Performed By: #### L 500.2500, L500.3400, L100.0100, L501.2450, L503.6005 ####[facility] [address] [place], [address] Glucose [Mass/Vol] 90 mg/dL Normal 70-99 [facility] Comment on above: Performed By: #### L 500.2500, L500.3400, L100.0100, L501.2450, L503.6005 ####[facility] [address] [place], [address] Potassium [Moles/Vol] 4.2 mmol/L Normal 3.3-5.1 [facility] Comment on above: Performed By: #### L 500.2500, L500.3400, L100.0100, L501.2450, L503.6005 ####[facility] [address] [place], [address] Sodium [Moles/Vol] 139 mmol/L Normal 133-145 [facility] Comment on above: Performed By: #### L 500.2500, L500.3400, L100.0100, L501.2450, L503.6005 ####[facility] [address] [place], [address] Urea nitrogen [Mass/Vol] 10 mg/dL Normal 4-19 [facility] Comment on above: Performed By: #### L 500.2500, L500.3400, L100.0100, L501.2450, L503.6005 ####[facility] [address] [place], [address] Basophil percentageOrdered B y: Guero Baker on 01-25-2025 Basophils/100 WBC (Bld) 0.9 % 0-1 [facility] Bilirubin directOrdered By: Guero Baker on 01-25-2025 Bilirubin.direct [Mass/Vol] mg/dL 0.00-0.30 [facility] Bilirubin, totalOrdered By: Guero Baker on 01-25-2025 Bilirubin [Mass/Vol] 0.17 mg/dL 0.00-1.30 [facility] Carbon dioxide, total [Moles /volume] in Central venous bloodOrdered By: Guero Baker on 01-25-2025 CO2 [Moles/Vol] 22.2 mmol/L 21.0-32.0 [facility] Chloride assayOrdered By: Maru Baker on 01-25-2025 Chloride [Moles/Vol] 104 mmol/L 98-108 [facility] Eosinophil percentageOrdered By: Guero Baker on 01-25-2025 Eosinophils/100 WBC (Bld) 2.8 % 0-5 [facility] Erythrocyte distribution wid th ratioOrdered By: Guero Baker on 01-25-2025 Erythrocyte distribution width (RBC) [Ratio] 13.2 % 11.6-14.6 [facility] Erythrocyte distribution wid th standard deviationOrdered By: Guero Baker on 01-25-2025 Erythrocyte distribution width (RBC) [Ratio] 43.5 fl 35.1-43.9 [facility] Glomerular filtration rate ( GFR) estimation/1.73 sq m using serum, plasma, or whole bOrdered By: Guero Baker on 01-25-2025 GFR/1.73 sq M.predicted among non-blacks MDRD (S/P/Bld) [Vol rate/Area] 107 mL/min/{1.73_m2} >60 [facility] Comment on above: mL/min/1.73m2 CKD-EP I Creatinine Equation (2020) Hematocrit Auto (Bld) [Volum e fraction]Ordered By: Guero Baker on 01-25-2025 Hematocrit (Bld) [Volume fraction] 44.9 % 40-54 [facility] Hemoglobin measurementOrdere d By: Guero Baker on 01-25-2025 Hemoglobin (Bld) [Mass/Vol] 15.4 g/dL 13.0-16.5 [facility] Immature granulocytes/100 WB C Auto (Bld)Ordered By: Guero Baker on 01-25-2025 Immature granulocytes/100 WBC (Bld) 0.300 % 0.0-0.9 [facility] Comment on above: IG% - Immature Granu locytes (promyelocytes, myelocytes and metamyelocytes) > 1% indicates that a LEFT SHIFT is Present. Laboratory - Chemistry and C hemistry - challengeOrdered By: Guero Baker on 01-25-2025 AST [Catalytic activity/Vol] 18 U/L <38 [facility] Lactic Acidon 01-25-2025 Lactate [Moles/Vol] 1.1 mmol/L Normal 0.0-2.0 [facility] Comment on above: Order Comment: Y Performed By: #### L 500.2500, L500.3400, L100.0100, L501.2450, L503.6005 ####[facility] [address] [place], [address] Lactic acid measurementOrder ed By: Guero Baker on 01-25-2025 Lactate [Moles/Vol] 1.1 mmol/L 0.0-2.0 [facility] Lipaseon 01-25-2025 Lipase [Catalytic activity/Vol] 31 U/L Normal 13-75 [facility] Comment on above: Result Comment: Scout kline note: LIPASE revised reference range effective 22. New Lipase methodology. Expected to produce lower values than the previous assay method. NEW Reference Range: 13 - 75 U/L Performed By: #### L 500.2500, L500.3400, L100.0100, L501.2450, L503.6005 #### [facility] [address] [place], [address] Lipase measurementOrdered By : Guero Baker on 01-25-2025 Lipase [Catalytic activity/Vol] 31 U/L 13-75 [facility] Comment on above: Please note:LIPASE r evised reference range effective 22. New Lipase methodology. Expected to produce lower values than the previous assay method. NEW Reference Range: 13 - 75 U/L Liver Profileon 01-25-2025 Albumin [Mass/Vol] 4.3 g/dL Normal 3.5-5.0 [facility] Comment on above: Performed By: #### L 500.2500, L500.3400, L100.0100, L501.2450, L503.6005 ####[facility] [address] [place], [address] ALK PHOS 40 U/L Normal 40-129 [facility] Comment on above: Performed By: #### L 500.2500, L500.3400, L100.0100, L501.2450, L503.6005 ####[facility] [address] [place], [address] ALT [Catalytic activity/Vol] 14 U/L Normal <=46 [facility] Comment on above: Performed By: #### L 500.2500, L500.3400, L100.0100, L501.2450, L503.6005 ####[facility] [address] [place], [address] AST [Catalytic activity/Vol] 18 U/L Normal <=37 [facility] Comment on above: Performed By: #### L 500.2500, L500.3400, L100.0100, L501.2450, L503.6005 ####[facility] [address] [place], [address] Bilirubin [Mass/Vol] 0.17 mg/dL Normal 0.00-1.30 [facility] Comment on above: Performed By: #### L 500.2500, L500.3400, L100.0100, L501.2450, L503.6005 ####[facility] [address] [place], [address] D BILI < 0.08 Normal 0.00-0.30 [facility] Comment on above: Performed By: #### L 500.2500, L500.3400, L100.0100, L501.2450, L503.6005 ####[facility] [address] [place], [address] Globulin (S) [Mass/Vol] 3.1 g/dL Normal 2.2-4.2 [facility] Comment on above: Performed By: #### L 500.2500, L500.3400, L100.0100, L501.2450, L503.6005 ####[facility] [address] [place], [address] T PROT 7.3 g/dL Normal 5.9-8.4 [facility] Comment on above: Performed By: #### L 500.2500, L500.3400, L100.0100, L501.2450, L503.6005 ####[facility] [address] [place], [address] MCV (mean corpuscular volume ) determinationOrdered By: Guero Baker on 01-25-2025 MCV (RBC) [Entitic vol] 91.1 fL 80-94 [facility] Mean corpuscular hemoglobin (MCH) determinationOrdered By: Guero Baker on 01-25-2025 MCH (RBC) [Entitic mass] 31.2 pg 27.0-32.0 [facility] Mean corpuscular hemoglobin concentration (MCHC) determinationOrdered By: Guero Baker on 01-25-2025 MCHC (RBC) [Mass/Vol] 34.3 g/dL 32-36 [facility] Mean platelet volume determi nationOrdered By: Guero Baker on 01-25-2025 Platelet mean volume (Bld) [Entitic vol] 9.8 fL 6.2-12.0 [facility] Monocyte percentageOrdered B y: Guero Baker on 01-25-2025 Monocytes/100 WBC (Bld) 5.1 % 0-10 [facility] Neutrophil percentageOrdered By: Guero Baker on 01-25-2025 Neutrophils/100 WBC (Bld) 54.3 % 47-70 [facility] Nucleated red blood cell per centageOrdered By: Guero Baker on 01-25-2025 Nucleated RBC/100 WBC (Bld) [Ratio] 0 % 0-5 [facility] Platelet countOrdered By: Maru Baker on 01-25-2025 Platelets (Bld) [#/Vol] 333 10*3/uL 150-450 [facility] Potassium measurement (mass/ volume)Ordered By: Guero Baker on 01-25-2025 Potassium (Unsp spec) [Mass/Vol] 4.2 mmol/L 3.3-5.1 [facility] RBC Auto (Bld) [#/Vol]Ordere d By: Guero Baker on 01-25-2025 RBC (Bld) [#/Vol] 4.93 10*6/uL 4.6-6.2 [facility] Serum creatinine measurement (mass/volume)Ordered By: Guero Baker on 01-25-2025 Creatinine [Mass/Vol] 0.88 mg/dL 0.70-1.20 [facility] Serum globulin measurementOr dered By: Guero Baker on 01-25-2025 Globulin (S) [Mass/Vol] 3.1 g/dL 2.2-4.2 [facility] Serum glucose measurement (m ass/volume)Ordered By: Guero Baker on 01-25-2025 Glucose [Mass/Vol] 90 mg/dL 70-99 [facility] Serum or plasma alanine carrera otransferase (ALT) measurementOrdered By: Guero Baker on 01-25-2025 ALT [Catalytic activity/Vol] 14 U/L <47 [facility] Serum or plasma albumin za urement (mass/volume)Ordered By: Guero Baker on 01-25-2025 Albumin [Mass/Vol] 4.3 g/dL 3.5-5.0 [facility] Serum or plasma alkaline camren sphatase measurementOrdered By: Guero Baker on 01-25-2025 ALP [Catalytic activity/Vol] 40 U/L 40-129 [facility] Serum or plasma calcium za urement (mass/volume)Ordered By: Guero Baker on 01-25-2025 Calcium [Mass/Vol] 9.6 mg/dL 7.6-11.0 [facility] Serum or plasma urea nitroge n measurement (mass/volume)Ordered By: Guero Baker on 01-25-2025 Urea nitrogen [Mass/Vol] 10 mg/dL 4-19 [facility] Sodium levelOrdered By: Scott Baker on 01-25-2025 Sodium [Moles/Vol] 139 mmol/L 133-145 [facility] Total proteinOrdered By: Yovani Baker on 01-25-2025 Protein [Mass/Vol] 7.3 g/dL 5.9-8.4 [facility] White blood cell (WBC) count Ordered By: Guero Baker on 01-25-2025 WBC (Bld) [#/Vol] 11.7 10*3/uL High 4.4-11.0 [facility] Abdomen/Pelvis W IV Cont ONL Yon 12-29-2024 Abdomen/Pelvis W IV Cont ONLY 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 Reading Location: [place] [address] CC: ERIC Starkey; Dr. Justin Cordero MD Corporate Officer: Signed Normal [facility] Absolute lymphocyte countOrd ered By: Justin Cordero on 12-29-2024 Lymphocytes Auto (Unsp spec) [#/Vol] 3.55 10*3/uL 0.83-4.51 [facility] Absolute neutrophil countOrd ered By: Justin Cordero on 12-29-2024 Neutrophils (Bld) [#/Vol] 7.2 10*3/uL 2.0-7.7 [facility] Anion gap in Serum or Plasma Ordered By: Justin Cordero on 12-29-2024 Anion gap [Moles/Vol] 12 mmol/L 5-15 [facility] Automated lymphocyte count a s percentage of total leukocytesOrdered By: Justin Cordero on 12-29-2024 Lymphocytes/100 WBC Auto (Unsp spec) 30.4 % 19-41 [facility] BUN/creatinine ratioOrdered By: Justin Cordero on 12-29-2024 Urea nitrogen/Creatinine [Mass ratio] 7.7 mg/mg Low 10-20 [facility] Basophil percentageOrdered B y: Justin Cordero on 12-29-2024 Basophils/100 WBC (Bld) 0.6 % 0-1 [facility] Bilirubin, totalOrdered By: Justin Cordero on 12-29-2024 Bilirubin [Mass/Vol] 0.19 mg/dL 0.00-1.30 [facility] CBC W/Diff, Automatedon 12-14-2024 Absolute Lymph 3.55 X10 3/uL Normal 0.83-4.51 [facility] Comment on above: Performed By: #### L 100.0100, L501.2450, L500.4050 ####[facility] [address] [place], [address] Absolute Neut 7.2 X10 3/uL Normal 2.0-7.7 [facility] Comment on above: Performed By: #### L 100.0100, L501.2450, L500.4050 ####[facility] [address] [place], [address] Basophils/100 WBC (Bld) 0.6 % Normal 0-1 [facility] Comment on above: Performed By: #### L 100.0100, L501.2450, L500.4050 ####[facility] [address] [place], [address] Eosinophils/100 WBC (Bld) 1.7 % Normal 0-5 [facility] Comment on above: Performed By: #### L 100.0100, L501.2450, L500.4050 ####[facility] [address] [place], [address] Erythrocyte distribution width (RBC) [Ratio] 12.4 % Normal 11.6-14.6 [facility] Comment on above: Performed By: #### L 100.0100, L501.2450, L500.4050 ####[facility] [address] [place], [address] Hematocrit (Bld) [Volume fraction] 43.2 % Normal 40-54 [facility] Comment on above: Performed By: #### L 100.0100, L501.2450, L500.4050 ####[facility] [address] [place], [address] Hemoglobin (Bld) [Mass/Vol] 15.0 g/dL Normal 13.0-16.5 [facility] Comment on above: Performed By: #### L 100.0100, L501.2450, L500.4050 ####[facility] [address] [place], [address] IG% 0.300 Normal 0.0-0.9 [facility] Comment on above: Result Comment: IG% - Immature Granulocytes (promyelocytes, myelocytes and metamyelocytes) > 1% indicates that a LEFT SHIFT is Present. Performed By: #### L 100.0100, L501.2450, L500.4050 ####[facility] [address] [place], [address] Lymphocytes/100 WBC (Bld) 30.4 % Normal 19-41 [facility] Comment on above: Performed By: #### L 100.0100, L501.2450, L500.4050 ####[facility] [address] [place], [address] MCH (RBC) [Entitic mass] 30.7 pg Normal 27.0-32.0 [facility] Comment on above: Performed By: #### L 100.0100, L501.2450, L500.4050 ####[facility] [address] [place], [address] MCHC (RBC) [Mass/Vol] 34.7 g/dL Normal 32-36 [facility] Comment on above: Performed By: #### L 100.0100, L501.2450, L500.4050 ####[facility] [address] [place], [address] MCV (RBC) [Entitic vol] 88.5 fL Normal 80-94 [facility] Comment on above: Performed By: #### L 100.0100, L501.2450, L500.4050 ####[facility] [address] [place], [address] Monocytes/100 WBC (Bld) 5.1 % Normal 0-10 [facility] Comment on above: Performed By: #### L 100.0100, L501.2450, L500.4050 ####[facility] [address] [place], [address] Neutrophils/100 WBC (Bld) 61.9 % Normal 47-70 [facility] Comment on above: Performed By: #### L 100.0100, L501.2450, L500.4050 ####[facility] [address] [place], [address] Nucleated RBC (Bld) [#/Vol] 0 10*3/uL Normal 0-5 [facility] Comment on above: Performed By: #### L 100.0100, L501.2450, L500.4050 ####[facility] [address] [place], [address] Platelet mean volume (Bld) [Entitic vol] 9.5 fL Normal 6.2-12.0 [facility] Comment on above: Performed By: #### L 100.0100, L501.2450, L500.4050 ####[facility] [address] [place], [address] Platelets (Bld) [#/Vol] 295 10*3/uL Normal 150-450 [facility] Comment on above: Performed By: #### L 100.0100, L501.2450, L500.4050 ####[facility] [address] [place], [address] RBC (Bld) [#/Vol] 4.88 10*6/uL Normal 4.6-6.2 [facility] Comment on above: Performed By: #### L 100.0100, L501.2450, L500.4050 ####[facility] [address] [place], [address] RDW SD 40.5 fl Normal 35.1-43.9 [facility] Comment on above: Performed By: #### L 100.0100, L501.2450, L500.4050 ####[facility] [address] [place], [address] WBC (Bld) [#/Vol] 11.7 10*3/uL High 4.4-11.0 [facility] Comment on above: Performed By: #### L 100.0100, L501.2450, L500.4050 ####[facility] [address] [place], [address] Carbon dioxide, total [Moles /volume] in Central venous bloodOrdered By: Justin Cordero on 12-29-2024 CO2 [Moles/Vol] 21.1 mmol/L 21.0-32.0 [facility] Chloride assayOrdered By: Germán Cordero on 12-29-2024 Chloride [Moles/Vol] 103 mmol/L 98-108 [facility] Comprehensive Metabolic Prof ilon 12-29-2024 Albumin [Mass/Vol] 3.8 g/dL Normal 3.5-5.0 [facility] Comment on above: Performed By: #### L 100.0100, L501.2450, L500.4050 ####[facility] [address] [place], [address] ALK PHOS 39 U/L Low 40-129 [facility] Comment on above: Performed By: #### L 100.0100, L501.2450, L500.4050 ####[facility] [address] [place], [address] ALT [Catalytic activity/Vol] 10 U/L Normal <=46 [facility] Comment on above: Performed By: #### L 100.0100, L501.2450, L500.4050 ####[facility] [address] [place], [address] AST [Catalytic activity/Vol] 21 U/L Normal <=37 [facility] Comment on above: Result Comment: Hemo lysis present, Results??could be affected. ?? Performed By: #### L 100.0100, L501.2450, L500.4050 ####[facility] [address] [place], [address] Bilirubin [Mass/Vol] 0.19 mg/dL Normal 0.00-1.30 [facility] Comment on above: Performed By: #### L 100.0100, L501.2450, L500.4050 ####[facility] [address] [place], [address] BUN/CRE 7.7 RATIO Low 10-20 [facility] Comment on above: Performed By: #### L 100.0100, L501.2450, L500.4050 ####[facility] [address] [place], [address] Calcium [Mass/Vol] 9.1 mg/dL Normal 7.6-11.0 [facility] Comment on above: Performed By: #### L 100.0100, L501.2450, L500.4050 ####[facility] [address] [place], [address] Chloride [Moles/Vol] 103 mmol/L Normal 98-108 [facility] Comment on above: Performed By: #### L 100.0100, L501.2450, L500.4050 ####[facility] [address] [place], [address] CO2 [Moles/Vol] 21.1 mmol/L Normal 21.0-32.0 [facility] Comment on above: Performed By: #### L 100.0100, L501.2450, L500.4050 ####[facility] [address] [place], [address] Creatinine [Mass/Vol] 0.79 mg/dL Normal 0.70-1.20 [facility] Comment on above: Performed By: #### L 100.0100, L501.2450, L500.4050 ####[facility] [address] [place], [address] GAP 12 Normal 5-15 [facility] Comment on above: Performed By: #### L 100.0100, L501.2450, L500.4050 ####[facility] [address] [place], [address] GFR/1.73 sq M.predicted among non-blacks MDRD (S/P/Bld) [Vol rate/Area] 112 mL/min/{1.73_m2} Normal >60 [facility] Comment on above: Result Comment: mL/m in/1.73m2 CKD-EPI Creatinine Equation (2020) Performed By: #### L 100.0100, L501.2450, L500.4050 ####[facility] [address] [place], [address] Glucose [Mass/Vol] 100 mg/dL High 70-99 [facility] Comment on above: Performed By: #### L 100.0100, L501.2450, L500.4050 ####[facility] [address] [place], [address] Potassium [Moles/Vol] 4.3 mmol/L Normal 3.3-5.1 [facility] Comment on above: Result Comment: Hemo lysis present, Results??could be affected. ?? Performed By: #### L 100.0100, L501.2450, L500.4050 ####[facility] [address] [place], [address] Sodium [Moles/Vol] 136 mmol/L Normal 133-145 [facility] Comment on above: Performed By: #### L 100.0100, L501.2450, L500.4050 ####[facility] [address] [place], [address] T PROT 6.8 g/dL Normal 5.9-8.4 [facility] Comment on above: Performed By: #### L 100.0100, L501.2450, L500.4050 ####[facility] [address] [place], [address] Urea nitrogen [Mass/Vol] 6 mg/dL Normal 4-19 [facility] Comment on above: Performed By: #### L 100.0100, L501.2450, L500.4050 ####[facility] [address] [place], [address] Emergency Department Summary on 12-29-2024 Emergency Department Summary [facility] Medical Records Department [address] [place] [address] Emergency Department Summary 12/29/24 MR#: [id number] Acct: [id number] Name: PATRICK KOROMA Rep #: [id number] : 1980 44 From: Justin Cordero MD [...] did his other hernia repair surgeries in [place] he was told by him he could do it. He referred him to a surgeon in [place] at and they also told him they were not able to help him. Patient denies any fever. No dysuria. Denies any nausea, vomiting or diarrhea. No back pain. Prior similar symptoms: Yes Recent Illness/Hospitalizati on: No PFSH PFS Medical History Seroma after procedure [...] 86 R (more content not included)... Normal [facility] Eosinophil percentageOrdered By: Justin Cordero on 12-29-2024 Eosinophils/100 WBC (Bld) 1.7 % 0-5 [facility] Erythrocyte distribution wid th ratioOrdered By: Justin Cordero on 12-29-2024 Erythrocyte distribution width (RBC) [Ratio] 12.4 % 11.6-14.6 [facility] Erythrocyte distribution wid th standard deviationOrdered By: Justin Cordero on 12-29-2024 Erythrocyte distribution width (RBC) [Ratio] 40.5 fl 35.1-43.9 [facility] Glomerular filtration rate ( GFR) estimation/1.73 sq m using serum, plasma, or whole bOrdered By: Justin Cordero on 12-29-2024 GFR/1.73 sq M.predicted among non-blacks MDRD (S/P/Bld) [Vol rate/Area] 112 mL/min/{1.73_m2} >60 [facility] Comment on above: mL/min/1.73m2 CKD-EP I Creatinine Equation (2020) Hematocrit Auto (Bld) [Volum e fraction]Ordered By: Justin Cordero on 12-29-2024 Hematocrit (Bld) [Volume fraction] 43.2 % 40-54 [facility] Hemoglobin measurementOrdere d By: Justin Cordero on 12-29-2024 Hemoglobin (Bld) [Mass/Vol] 15.0 g/dL 13.0-16.5 [facility] Immature granulocytes/100 WB C Auto (Bld)Ordered By: Justin Cordero on 12-29-2024 Immature granulocytes/100 WBC (Bld) 0.300 % 0.0-0.9 [facility] Comment on above: IG% - Immature Granu locytes (promyelocytes, myelocytes and metamyelocytes) > 1% indicates that a LEFT SHIFT is Present. Laboratory - Chemistry and C hemistry - challengeOrdered By: Justin Cordero on 12-29-2024 AST [Catalytic activity/Vol] 21 U/L <38 [facility] Comment on above: Hemolysis present, R esults could be affected. Lipaseon 12-29-2024 Lipase [Catalytic activity/Vol] 28 U/L Normal 13-75 [facility] Comment on above: Result Comment: Scout kline note: LIPASE revised reference range effective 22. New Lipase methodology. Expected to produce lower values than the previous assay method. NEW Reference Range: 13 - 75 U/L Performed By: #### L 100.0100, L501.2450, L500.4050 ####[facility] [address] [place], [address] Lipase measurementOrdered By : Justin Cordero on 12-29-2024 Lipase [Catalytic activity/Vol] 28 U/L 13-75 [facility] Comment on above: Please note:LIPASE r evised reference range effective 22. New Lipase methodology. Expected to produce lower values than the previous assay method. NEW Reference Range: 13 - 75 U/L MCV (mean corpuscular volume ) determinationOrdered By: Justin Cordero on 12-29-2024 MCV (RBC) [Entitic vol] 88.5 fL 80-94 [facility] Mean corpuscular hemoglobin (MCH) determinationOrdered By: Justin Cordero on 12-29-2024 MCH (RBC) [Entitic mass] 30.7 pg 27.0-32.0 [facility] Mean corpuscular hemoglobin concentration (MCHC) determinationOrdered By: Justin Cordero on 12-29-2024 MCHC (RBC) [Mass/Vol] 34.7 g/dL 32-36 [facility] Mean platelet volume determi nationOrdered By: Justin Cordero on 12-29-2024 Platelet mean volume (Bld) [Entitic vol] 9.5 fL 6.2-12.0 [facility] Monocyte percentageOrdered B y: Justin Cordero on 12-29-2024 Monocytes/100 WBC (Bld) 5.1 % 0-10 [facility] Neutrophil percentageOrdered By: Justin Cordero on 12-29-2024 Neutrophils/100 WBC (Bld) 61.9 % 47-70 [facility] Nucleated red blood cell per centageOrdered By: Justin Cordero on 12-29-2024 Nucleated RBC/100 WBC (Bld) [Ratio] 0 % 0-5 [facility] Platelet countOrdered By: Germán Cordero on 12-29-2024 Platelets (Bld) [#/Vol] 295 10*3/uL 150-450 [facility] Potassium measurement (mass/ volume)Ordered By: Justin Cordero on 12-29-2024 Potassium (Unsp spec) [Mass/Vol] 4.3 mmol/L 3.3-5.1 [facility] Comment on above: Hemolysis present, R esults could be affected. RBC Auto (Bld) [#/Vol]Ordere d By: Justin Cordero on 12-29-2024 RBC (Bld) [#/Vol] 4.88 10*6/uL 4.6-6.2 [facility] Serum creatinine measurement (mass/volume)Ordered By: Justin Cordero on 12-29-2024 Creatinine [Mass/Vol] 0.79 mg/dL 0.70-1.20 [facility] Serum globulin measurementOr dered By: Justin Cordero on 12-29-2024 Globulin (S) [Mass/Vol] 3.0 g/dL 2.2-4.2 [facility] Serum glucose measurement (m ass/volume)Ordered By: Justin Cordero on 12-29-2024 Glucose [Mass/Vol] 100 mg/dL High 70-99 [facility] Serum or plasma alanine carrera otransferase (ALT) measurementOrdered By: Justin Cordeor on 12-29-2024 ALT [Catalytic activity/Vol] 10 U/L <47 [facility] Serum or plasma albumin za urement (mass/volume)Ordered By: Justin Cordero on 12-29-2024 Albumin [Mass/Vol] 3.8 g/dL 3.5-5.0 [facility] Serum or plasma albumin/glob ulin mass ratioOrdered By: Justin Cordero on 12-29-2024 Albumin/Globulin [Mass ratio] 1.3 {ratio} 0.9-2.4 [facility] Serum or plasma alkaline carmen sphatase measurementOrdered By: Justin Cordero on 12-29-2024 ALP [Catalytic activity/Vol] 39 U/L Low 40-129 [facility] Serum or plasma calcium za urement (mass/volume)Ordered By: Justin Cordero on 12-29-2024 Calcium [Mass/Vol] 9.1 mg/dL 7.6-11.0 [facility] Serum or plasma urea nitroge n measurement (mass/volume)Ordered By: Justin Cordero on 12-29-2024 Urea nitrogen [Mass/Vol] 6 mg/dL 4-19 [facility] Sodium levelOrdered By: Justin Cordero on 12-29-2024 Sodium [Moles/Vol] 136 mmol/L 133-145 [facility] Total proteinOrdered By: Van Cordero on 12-29-2024 Protein [Mass/Vol] 6.8 g/dL 5.9-8.4 [facility] White blood cell (WBC) count Ordered By: Justin Cordero on 12-29-2024 WBC (Bld) [#/Vol] 11.7 10*3/uL High 4.4-11.0 [facility] Abdomen/Pelvis W IV Cont ONL Yon 12-09-2024 Abdomen/Pelvis W IV Cont ONLY [facility] Imaging Services [address] [place] [address] Abdomen/Pelvis W IV Cont ONLY MR#: [id number] Acct: [id number] Name: PATRICK KOROMA Rep #: [id number] : 1980 M 44 From: Davis mayfield MD PCP: ERIC Anaya Status: REG ER Study: Abdomen/Pelvis W IV Cont ONLY Date of Exam: Exam# [id number] Ordering Dr: Guero Baker DO PROCEDURE: ABDOMEN/PELVIS [...] of the stomach, probably gastritis. Reading Location: [place] [address] CC: ERIC Starkey; Guero Baker DO Corporate Officer: Signed Normal [facility] Absolute lymphocyte countOrd ered By: Guero Baker on 12-09-2024 Lymphocytes Auto (Unsp spec) [#/Vol] 3.41 10*3/uL 0.83-4.51 [facility] Absolute neutrophil countOrd ered By: Guero Baker on 12-09-2024 Neutrophils (Bld) [#/Vol] 6.8 10*3/uL 2.0-7.7 [facility] Anion gap in Serum or Plasma Ordered By: Guero Baker on 12-09-2024 Anion gap [Moles/Vol] 11 mmol/L 5-15 [facility] Automated lymphocyte count a s percentage of total leukocytesOrdered By: Guero Baker on 12-09-2024 Lymphocytes/100 WBC Auto (Unsp spec) 30.2 % 19-41 [facility] BUN/creatinine ratioOrdered By: Guero Baker on 12-09-2024 Urea nitrogen/Creatinine [Mass ratio] 12.9 mg/mg 10-20 [facility] Basic Metabolic Profile (BMP )on 12-09-2024 GFR/1.73 sq M.predicted among non-blacks MDRD (S/P/Bld) [Vol rate/Area] 108 mL/min/{1.73_m2} Normal >60 [facility] Comment on above: Performed By: #### L 500.3400, L501.2450, L500.2500 ####[facility] [id number] [place], [address] Basophil percentageOrdered B y: Guero Baker on 12-09-2024 Basophils/100 WBC (Bld) 0.8 % 0-1 [facility] Bilirubin directOrdered By: Guero Baker on 12-09-2024 Bilirubin.direct [Mass/Vol] mg/dL 0.00-0.30 [facility] Comment on above: Hemolysis present, R esults could be affected. Bilirubin, totalOrdered By: Guero Baker on 12-09-2024 Bilirubin [Mass/Vol] mg/dL 0.00-1.30 [facility] CBC W/Diff, Automatedon 11-15 Absolute Lymph 3.41 X10 3/uL Normal 0.83-4.51 [facility] Comment on above: Performed By: #### L 503.6005, L100.0100 ####[facility] [address] [place], [address] Absolute Neut 6.8 X10 3/uL Normal 2.0-7.7 [facility] Comment on above: Performed By: #### L 503.6005, L100.0100 ####[facility] [address] [place], [address] Basophils/100 WBC (Bld) 0.8 % Normal 0-1 [facility] Comment on above: Performed By: #### L 503.6005, L100.0100 ####[facility] [address] [place], [address] Eosinophils/100 WBC (Bld) 2.0 % Normal 0-5 [facility] Comment on above: Performed By: #### L 503.6005, L100.0100 ####[facility] [address] [place], [address] Erythrocyte distribution width (RBC) [Ratio] 12.4 % Normal 11.6-14.6 [facility] Comment on above: Performed By: #### L 503.6005, L100.0100 ####[facility] [address] [place], [address] Hematocrit (Bld) [Volume fraction] 44.7 % Normal 40-54 [facility] Comment on above: Performed By: #### L 503.6005, L100.0100 ####[facility] [address] [place], [address] Hemoglobin (Bld) [Mass/Vol] 15.2 g/dL Normal 13.0-16.5 [facility] Comment on above: Performed By: #### L 503.6005, L100.0100 ####[facility] [address] [place], [address] IG% 0.400 Normal 0.0-0.9 [facility] Comment on above: Result Comment: IG% - Immature Granulocytes (promyelocytes, myelocytes and metamyelocytes) > 1% indicates that a LEFT SHIFT is Present. Performed By: #### L 503.6005, L100.0100 ####[facility] [address] [place], [address] Lymphocytes/100 WBC (Bld) 30.2 % Normal 19-41 [facility] Comment on above: Performed By: #### L 503.6005, L100.0100 ####[facility] [address] [place], [address] MCH (RBC) [Entitic mass] 31.1 pg Normal 27.0-32.0 [facility] Comment on above: Performed By: #### L 503.6005, L100.0100 ####[facility] [address] [place], [address] MCHC (RBC) [Mass/Vol] 34.0 g/dL Normal 32-36 [facility] Comment on above: Performed By: #### L 503.6005, L100.0100 ####[facility] [address] [place], [address] MCV (RBC) [Entitic vol] 91.4 fL Normal 80-94 [facility] Comment on above: Performed By: #### L 503.6005, L100.0100 ####[facility] [address] [place], [address] Monocytes/100 WBC (Bld) 6.0 % Normal 0-10 [facility] Comment on above: Performed By: #### L 503.6005, L100.0100 ####[facility] [address] [place], [address] Neutrophils/100 WBC (Bld) 60.6 % Normal 47-70 [facility] Comment on above: Performed By: #### L 503.6005, L100.0100 ####[facility] [address] [place], [address] Nucleated RBC (Bld) [#/Vol] 0 10*3/uL Normal 0-5 [facility] Comment on above: Performed By: #### L 503.6005, L100.0100 ####[facility] [address] [place], [address] Platelet mean volume (Bld) [Entitic vol] 9.4 fL Normal 6.2-12.0 [facility] Comment on above: Performed By: #### L 503.6005, L100.0100 ####[facility] [address] [place], [address] Platelets (Bld) [#/Vol] 295 10*3/uL Normal 150-450 [facility] Comment on above: Performed By: #### L 503.6005, L100.0100 ####[facility] [address] [place], [address] RBC (Bld) [#/Vol] 4.89 10*6/uL Normal 4.6-6.2 [facility] Comment on above: Performed By: #### L 503.6005, L100.0100 ####[facility] [address] [place], [address] RDW SD 41.4 fl Normal 35.1-43.9 [facility] Comment on above: Performed By: #### L 503.6005, L100.0100 ####[facility] [address] [place], [address] WBC (Bld) [#/Vol] 11.3 10*3/uL High 4.4-11.0 [facility] Comment on above: Performed By: #### L 503.6005, L100.0100 ####[facility] [address] [place], [address] Carbon dioxide, total [Moles /volume] in Central venous bloodOrdered By: Guero Baker on 12-09-2024 CO2 [Moles/Vol] 23.5 mmol/L 21.0-32.0 [facility] Chloride assayOrdered By: Maru Baker on 12-09-2024 Chloride [Moles/Vol] 106 mmol/L 98-108 [facility] Emergency Department Summary on 12-09-2024 Emergency Department Summary [facility] Medical Records Department [address] [place] [address] Emergency Department Summary 12/09/24 MR#: [id number] Acct: [id number] Name: PATRICK KOROMA Rep #: [id number] : 1980 44 From: Guero Baker DO [...] able to repaired by a specialist at [facility]. He denies any recent trauma but states that he has been having increasing pain in the mid abdomen which feels similar nature to his previous bouts of hernia complication and therefore comes in for evaluation [facility] Medical History Seroma after procedure Influenza [...] ER hyper (more content not included)... Normal [facility] Eosinophil percentageOrdered By: Guero Baker on 12-09-2024 Eosinophils/100 WBC (Bld) 2.0 % 0-5 [facility] Erythrocyte distribution wid th ratioOrdered By: Guero Baker on 12-09-2024 Erythrocyte distribution width (RBC) [Ratio] 12.4 % 11.6-14.6 [facility] Erythrocyte distribution wid th standard deviationOrdered By: Guero Baker on 12-09-2024 Erythrocyte distribution width (RBC) [Ratio] 41.4 fl 35.1-43.9 [facility] Glomerular filtration rate ( GFR) estimation/1.73 sq m using serum, plasma, or whole bOrdered By: Guero Baker on 12-09-2024 GFR/1.73 sq M.predicted among non-blacks MDRD (S/P/Bld) [Vol rate/Area] 108 mL/min/{1.73_m2} >60 [facility] Hematocrit Auto (Bld) [Volum e fraction]Ordered By: Guero Baker on 12-09-2024 Hematocrit (Bld) [Volume fraction] 44.7 % 40-54 [facility] Hemoglobin measurementOrdere d By: Guero Baker on 12-09-2024 Hemoglobin (Bld) [Mass/Vol] 15.2 g/dL 13.0-16.5 [facility] Immature granulocytes/100 WB C Auto (Bld)Ordered By: Guero Baker on 12-09-2024 Immature granulocytes/100 WBC (Bld) 0.400 % 0.0-0.9 [facility] Comment on above: IG% - Immature Granu locytes (promyelocytes, myelocytes and metamyelocytes) > 1% indicates that a LEFT SHIFT is Present. Laboratory - Chemistry and C hemistry - challengeOrdered By: Guero Baker on 12-09-2024 AST [Catalytic activity/Vol] 17 U/L <38 [facility] Comment on above: Hemolysis present, R esults could be affected. Lactic Acidon 12-09-2024 Lactate [Moles/Vol] 1.1 mmol/L Normal 0.0-2.0 [facility] Comment on above: Order Comment: Y Performed By: #### L 503.6005, L100.0100 ####[facility] [address] [facility] [place], [address] Lactic acid measurementOrder ed By: Guero Baker on 12-09-2024 Lactate [Moles/Vol] 1.1 mmol/L 0.0-2.0 [facility] Lipaseon 12-09-2024 Lipase [Catalytic activity/Vol] 36 U/L Normal 13-75 [facility] Comment on above: Result Comment: Scout kline note: LIPASE revised reference range effective 22. New Lipase methodology. Expected to produce lower values than the previous assay method. NEW Reference Range: 13 - 75 U/L Performed By: #### L 500.3400, L501.2450, L500.2500 ####[facility] [address] [place], [address] Lipase measurementOrdered By : Guero Baker on 12-09-2024 Lipase [Catalytic activity/Vol] 36 U/L 13-75 [facility] Comment on above: Please note:LIPASE r evised reference range effective 22. New Lipase methodology. Expected to produce lower values than the previous assay method. NEW Reference Range: 13 - 75 U/L Liver Profileon 12-09-2024 Albumin [Mass/Vol] 3.7 g/dL Normal 3.5-5.0 [facility] Comment on above: Performed By: #### L 500.3400, L501.2450, L500.2500 ####[facility] [address] [place], [address] ALK PHOS 42 U/L Normal 40-129 [facility] Comment on above: Performed By: #### L 500.3400, L501.2450, L500.2500 ####[facility] [address] [place], [address] ALT [Catalytic activity/Vol] 15 U/L Normal <=46 [facility] Comment on above: Performed By: #### L 500.3400, L501.2450, L500.2500 ####[facility] [address] [place], [address] AST [Catalytic activity/Vol] 17 U/L Normal <=37 [facility] Comment on above: Result Comment: Hemo lysis present, Results??could be affected. ?? Performed By: #### L 500.3400, L501.2450, L500.2500 ####[facility] [address] [place], [address] D BILI < 0.08 Normal 0.00-0.30 [facility] Comment on above: Result Comment: Hemo lysis present, Results??could be affected. ?? Performed By: #### L 500.3400, L501.2450, L500.2500 ####[facility] [address] [place], [address] Globulin (S) [Mass/Vol] 2.8 g/dL Normal 2.2-4.2 [facility] Comment on above: Performed By: #### L 500.3400, L501.2450, L500.2500 ####[facility] [address] [place], [address] T BILI < 0.15 Normal 0.00-1.30 [facility] Comment on above: Performed By: #### L 500.3400, L501.2450, L500.2500 ####[facility] [address] [place], [address] T PROT 6.5 g/dL Normal 5.9-8.4 [facility] Comment on above: Performed By: #### L 500.3400, L501.2450, L500.2500 ####[facility] [address] [place], [address] MCV (mean corpuscular volume ) determinationOrdered By: Guero Baker on 12-09-2024 MCV (RBC) [Entitic vol] 91.4 fL 80-94 [facility] Mean corpuscular hemoglobin (MCH) determinationOrdered By: Guero Baker on 12-09-2024 MCH (RBC) [Entitic mass] 31.1 pg 27.0-32.0 [facility] Mean corpuscular hemoglobin concentration (MCHC) determinationOrdered By: Guero Baker on 12-09-2024 MCHC (RBC) [Mass/Vol] 34.0 g/dL 32-36 [facility] Mean platelet volume determi nationOrdered By: Guero Baker on 12-09-2024 Platelet mean volume (Bld) [Entitic vol] 9.4 fL 6.2-12.0 [facility] Monocyte percentageOrdered B y: Guero Baker on 12-09-2024 Monocytes/100 WBC (Bld) 6.0 % 0-10 [facility] Neutrophil percentageOrdered By: Guero Baker on 12-09-2024 Neutrophils/100 WBC (Bld) 60.6 % 47-70 [facility] Nucleated red blood cell per centageOrdered By: Guero Baker on 12-09-2024 Nucleated RBC/100 WBC (Bld) [Ratio] 0 % 0-5 [facility] Platelet countOrdered By: Maru Baker on 12-09-2024 Platelets (Bld) [#/Vol] 295 10*3/uL 150-450 [facility] Potassium measurement (mass/ volume)Ordered By: Guero Baker on 12-09-2024 Potassium (Unsp spec) [Mass/Vol] 4.0 mmol/L 3.3-5.1 [facility] Comment on above: Hemolysis present, R esults could be affected. RBC Auto (Bld) [#/Vol]Ordere d By: Guero Baker on 12-09-2024 RBC (Bld) [#/Vol] 4.89 10*6/uL 4.6-6.2 [facility] Serum creatinine measurement (mass/volume)Ordered By: Guero Baker on 12-09-2024 Creatinine [Mass/Vol] 0.87 mg/dL 0.70-1.20 [facility] Serum globulin measurementOr dered By: Guero Baker on 12-09-2024 Globulin (S) [Mass/Vol] 2.8 g/dL 2.2-4.2 [facility] Serum glucose measurement (m ass/volume)Ordered By: Guero Baker on 12-09-2024 Glucose [Mass/Vol] 105 mg/dL High 70-99 [facility] Serum or plasma alanine carrera otransferase (ALT) measurementOrdered By: Guero Baker on 12-09-2024 ALT [Catalytic activity/Vol] 15 U/L <47 [facility] Serum or plasma albumin za urement (mass/volume)Ordered By: Guero Baker on 12-09-2024 Albumin [Mass/Vol] 3.7 g/dL 3.5-5.0 [facility] Serum or plasma alkaline carmen sphatase measurementOrdered By: Guero Baker on 12-09-2024 ALP [Catalytic activity/Vol] 42 U/L 40-129 [facility] Serum or plasma calcium za urement (mass/volume)Ordered By: Guero Baker on 12-09-2024 Calcium [Mass/Vol] 8.7 mg/dL 7.6-11.0 [facility] Serum or plasma urea nitroge n measurement (mass/volume)Ordered By: Guero Baker on 12-09-2024 Urea nitrogen [Mass/Vol] 11 mg/dL 4-19 [facility] Sodium levelOrdered By: Scott Baker on 12-09-2024 Sodium [Moles/Vol] 140 mmol/L 133-145 [facility] Total proteinOrdered By: Yovani Baker on 12-09-2024 Protein [Mass/Vol] 6.5 g/dL 5.9-8.4 [facility] White blood cell (WBC) count Ordered By: Guero Baker on 12-09-2024 WBC (Bld) [#/Vol] 11.3 10*3/uL High 4.4-11.0 [facility] Emergency Department Summary on 12-07-2024 Emergency Department Summary [facility] Medical Records Department [address] [place] [address] Emergency Department Summary 12/07/24 MR#: [id number] Acct: [id number] Name: PATRICK KOROMA Rep #: [id number] : 1980 44 From: Guevara Choi MD PCP: ERIC Anaya Status:REG ER Location: ED HPI History of Present Illness Chief Complaint: Upper Extremity Injury Informant: patient Narrative Narrative: [facility] patient states he smashed his right thumb between 2 metal poles on accident. Niixs-fwmo-bpotguis. [facility] Medical History Seroma after procedure Influenza [...] Reading Location: [facility] Discharge Plan Triage Chief Complaint: Upper Extremity Injury ED Provider: Guevara Choi Dx/Rx/DC Orders Clinical Impression: Contusion of right thumb with damage to nail, initial encounter Instructions: ED Finger or Toe Contusion Prescriptions: No Action NK Primary Care Provider: Viola Starkey NP Referrals: Viola Starkey NP, FACING MACHINE OPERATOR-C [Primary Care Provider] - 10-14 Days if not better Print La (more content not included)... Normal [facility] Hand Min 3 Viewson 5 Hand Min [address] [facility] Imaging Services [address] [place], [place] [address] Hand Min 3 Views MR#: [id number] Acct: [id number] Name: PATRICK KOROMA Rep #: [id number] : 1980 M 44 From: Stephan Ba MD PCP: ERIC Anaya Status: PRE ER Study: Hand Min 3 Views Date of Exam: 12/06/24 Exam# [id number] Ordering Dr: Guevara Choi MD PROCEDURE: HAND MIN 3 VIEWS 12/06/2024 REASON FOR EXAM: INJURY TECHNIQUE: HAND MIN 3 VIEWS COMPARISON: None FINDINGS: No fracture or traumatic malalignment. Joint spaces are predominantly maintained. Bone mineral density is subjectively normal. The soft tissues are unremarkable. RAD/Hand Min 3 Views IMPRESSION: No acute osseous abnormality of the right hand. Reading Location: [facility]-NPPSOAH[facility]-C CC: YULI-Marielos Starkey; Dr. Guevara Choi MD Corporate Officer: Signed Normal [facility] Clavicleon 09-19-[address] [facility] Imaging Services [address] [place] [address] Clavicle MR#: [id number] Acct: [id number] Name: PATRICK KOROMA Rep #: [id number] : 1980 M 44 From: Kalli Tena DO PCP: ERIC Anaya Status: REG ER Study: Clavicle Date of Exam: 09/19/24 Exam# [id number] Ordering Dr: Brian Maldonado MD PROCEDURE: CLAVICLE 09/19/2024 REASON FOR EXAM: TRAUMA TECHNIQUE: Two views of the right clavicle were obtained COMPARISON: None FINDINGS: Bones: No acute fracture. Joints: Joint spaces are preserved. Soft tissues: No soft tissue abnormality. RAD/Clavicle IMPRESSION: NO EVIDENCE OF CLAVICLE FRACTURE Reading [facility] CC: ERIC Starkey; Dr. Brian Maldonado MD Corporate Officer: Signed Normal [facility] Emergency Department Summary on 09-19-2024 Emergency Department Summary [facility] Medical Records Department [address] [place] [address] Emergency Department Summary 09/19/24 MR#: [id number] Acct: [id number] Name: PATRICK KOROMA Rep #: [id number] : 1980 44 From: Brian Maldonado MD PCP: ERIC Anaya Status:REG ER Location: ED HPI History of Present Illness Chief Complaint: Upper Extremity Injury Narrative Narrative: 44-year-old male, gctte-kvey-bzopjtff, presents with injury to his right shoulder and clavicle that he sustained on Wednesday, 5 days ago. He relates history that [...] raise his right arm. Denies other injuries. [facility] Medical History Seroma after procedure Influenza [...] clavicle and shoulder pain worse with movement. Bbqaw-pcvh-wanpsnmb. Denies hitting of his head or loss [...] AC joint separation. Patient was given 1 [place] tablet here for analgesia and x-rays obtained [...] not improving. I feel he can take ufyb-scg-hnydwhu medications for analgesia. Return instructions to the emergency department were reviewed. Disposition is discharged home in stable condition. History Recor (more content not included)... Normal [facility] Shoulder min 2 Viewson 09-19 Shoulder min [address] [facility] Imaging Services [address] [place] [address] Shoulder min 2 Views MR#: [id number] Acct: [id number] Name: PATRICK KOROMA Rep #: [id number] : 1980 M 44 From: Kalli Tena DO PCP: ERIC Anaya Status: REG ER Study: Shoulder min 2 Views Date of Exam: 09/19/24 Exam# [id number] Ordering Dr: Brian Maldonado MD PROCEDURE: SHOULDER MIN 2 VIEWS 09/19/2024 REASON FOR EXAM: TRAUMA TECHNIQUE: 4 view(s) of the right shoulder COMPARISON: None FINDINGS: Bones: No acute fracture. Joints: Normal alignment of the acromioclavicular and glenohumeral joints. Soft tissues: Soft tissues are unremarkable. Other: RAD/Shoulder min 2 Views IMPRESSION: NO ACUTE FRACTURE OR DISLOCATION. Reading Location: [facility] CC: FACING MACHINE OPERATOR-C Viola Starkey; Dr. Brian Maldonado MD Corporate Officer: Signed Normal [facility] .Auto Diffon 09-08-2024 Basophil, Absolute 0.1 10 3/mcL Normal 0.0-0.2 [facility] Comment on above: Performed By: #### A DIFF, CMP, CBC, LIPID, GFR, ANEU #### [address] [address] Basophils/100 WBC (Bld) 1.0 % Normal 0.0-2.5 [facility] Comment on above: Performed By: #### A DIFF, CMP, CBC, LIPID, GFR, ANEU #### [address] [address] Eosinophil, Absolute 0.1 10 3/mcL Normal 0.0-0.7 [facility] Comment on above: Performed By: #### A DIFF, CMP, CBC, LIPID, GFR, ANEU #### [address] [address] Eosinophils/100 WBC (Bld) 0.8 % Normal 0.0-7.0 [facility] Comment on above: Performed By: #### A DIFF, CMP, CBC, LIPID, GFR, ANEU #### [address] [address] Lymphocyte, Absolute 2.2 10 3/mcL Normal 0.9-4.3 [facility] Comment on above: Performed By: #### A DIFF, CMP, CBC, LIPID, GFR, ANEU #### [address] [address] Lymphocytes/100 WBC (Bld) 17.9 % Low 20.0-40.0 [facility] Comment on above: Performed By: #### A DIFF, CMP, CBC, LIPID, GFR, ANEU #### [address] [address] Monocyte, Absolute 0.8 10 3/mcL Normal 0.1-1.4 [facility] Comment on above: Performed By: #### A DIFF, CMP, CBC, LIPID, GFR, ANEU #### [address] [address] Monocytes/100 WBC (Bld) 6.5 % Normal 2.0-13.0 [facility] Comment on above: Performed By: #### A DIFF, CMP, CBC, LIPID, GFR, ANEU #### [address] [address] Neutrophils/100 WBC (Bld) 73.8 % Normal 50.0-75.0 [facility] Comment on above: Performed By: #### A DIFF, CMP, CBC, LIPID, GFR, ANEU #### [address] [address] .GFRon 09-08-2024 Estimated Glomerular Filtration Rate 99 ml/min/1.73sqm Normal [facility] Comment on above: Result Comment: Stages of [...] DIFF, CMP, CBC, LIPID, GFR, ANEU #### [address] [address] .NEUABSon 09-08-2024 Neutrophil, Absolute 9.2 10 3/mcL High 2.3-8.1 [facility] Comment on above: Performed By: #### A DIFF, CMP, CBC, LIPID, GFR, ANEU #### [place] [address] CBCon 09-08-2024 Erythrocyte distribution width (RBC) [Ratio] 13.3 % Normal 11.5-15.5 [facility] Comment on above: Performed By: #### A DIFF, CMP, CBC, LIPID, GFR, ANEU #### [place] [address] Hematocrit (Bld) [Volume fraction] 45.6 % Normal 40.0-52.0 [facility] Comment on above: Performed By: #### A DIFF, CMP, CBC, LIPID, GFR, ANEU #### [place] [address] Hgb 15.3 G/dL Normal 13.0-17.5 [facility] Comment on above: Performed By: #### A DIFF, CMP, CBC, LIPID, GFR, ANEU #### [place] [address] MCH (RBC) [Entitic mass] 31.0 pg Normal 27.0-33.0 [facility] Comment on above: Performed By: #### A DIFF, CMP, CBC, LIPID, GFR, ANEU #### [place] [address] MCHC 33.5 G/dL Normal 32.0-36.0 [facility] Comment on above: Performed By: #### A DIFF, CMP, CBC, LIPID, GFR, ANEU #### [place] [address] MCV (RBC) [Entitic vol] 92.3 fL Normal 81.0-100.0 [facility] Comment on above: Performed By: #### A DIFF, CMP, CBC, LIPID, GFR, ANEU #### [address] [address] Platelet 297 10 3/mcL Normal 150-450 [facility] Comment on above: Performed By: #### A DIFF, CMP, CBC, LIPID, GFR, ANEU #### [address] [address] Platelet mean volume (Bld) [Entitic vol] 8.0 fL Normal 6.4-10.5 [facility] Comment on above: Performed By: #### A DIFF, CMP, CBC, LIPID, GFR, ANEU #### [place] [address] RBC 4.94 10 6/mcL Normal 4.50-6.00 [facility] Comment on above: Performed By: #### A DIFF, CMP, CBC, LIPID, GFR, ANEU #### [place] [id number] WBC 12.5 10 3/mcL High 4.5-10.8 [facility] Comment on above: Performed By: #### A DIFF, CMP, CBC, LIPID, GFR, ANEU #### [address] [address] CMPon 09-08-2024 Albumin Level 3.7 G/dL Normal 3.5-5.0 [facility] Comment on above: Performed By: #### A DIFF, CMP, CBC, LIPID, GFR, ANEU #### [place] [address] Albumin/Globulin [Mass ratio] 0.9 {ratio} Low 1.1-2.5 [facility] Comment on above: Performed By: #### A DIFF, CMP, CBC, LIPID, GFR, ANEU #### [address] [address] ALP [Catalytic activity/Vol] 51 U/L Normal 40-135 [facility] Comment on above: Performed By: #### A DIFF, CMP, CBC, LIPID, GFR, ANEU #### [address] [address] ALT [Catalytic activity/Vol] 17 U/L Normal 16-63 [facility] Comment on above: Performed By: #### A DIFF, CMP, CBC, LIPID, GFR, ANEU #### [address] [address] AST [Catalytic activity/Vol] 15 U/L Normal 10-40 [facility] Comment on above: Performed By: #### A DIFF, CMP, CBC, LIPID, GFR, ANEU #### [address] [address] Bili Total 0.2 mg/dL Normal 0.2-1.0 [facility] Comment on above: Result Comment: Use of this assay is not recommended for patients undergoing treatment with eltrombopag due to the potential for falsely elevated results. Performed By: #### A DIFF, CMP, CBC, LIPID, GFR, ANEU #### [place] [address] BUN/Creatinine Ratio 11 ratio Normal 7-27 [facility] Comment on above: Performed By: #### A DIFF, CMP, CBC, LIPID, GFR, ANEU #### [address] [address] Calcium [Mass/Vol] 9.7 mg/dL Normal 8.4-10.2 [facility] Comment on above: Performed By: #### A DIFF, CMP, CBC, LIPID, GFR, ANEU #### [address] [address] Chloride [Moles/Vol] 99 mmol/L Normal 98-107 [facility] Comment on above: Performed By: #### A DIFF, CMP, CBC, LIPID, GFR, ANEU #### [address] [address] CO2 [Moles/Vol] 27 mmol/L Normal 22-29 [facility] Comment on above: Performed By: #### A DIFF, CMP, CBC, LIPID, GFR, ANEU #### [address] [address] Creatinine [Mass/Vol] 0.96 mg/dL Normal 0.70-1.30 [facility] [facility] Comment on above: Result Comment: Test ing performed on Siemens Dimension EXL analyzer using a modified kinetic Elyse technique. Performed By: #### A DIFF, CMP, CBC, LIPID, GFR, ANEU #### [place] [id number] Electrolyte Balance 8.0 mEq/L Normal 4.0-15.0 [facility] Comment on above: Performed By: #### A DIFF, CMP, CBC, LIPID, GFR, ANEU #### [place] [address] Globulin 4.0 G/dL High 1.5-3.8 [facility] Comment on above: Performed By: #### A DIFF, CMP, CBC, LIPID, GFR, ANEU #### [place] [address] Glucose [Mass/Vol] 91 mg/dL Normal 70-105 [facility] Comment on above: Performed By: #### A DIFF, CMP, CBC, LIPID, GFR, ANEU #### [place] [id number] Potassium [Moles/Vol] 4.4 mmol/L Normal 3.5-5.1 [facility] Comment on above: Performed By: #### A DIFF, CMP, CBC, LIPID, GFR, ANEU #### [place] [address] Sodium [Moles/Vol] 134 mmol/L Low 136-145 [facility] Comment on above: Performed By: #### A DIFF, CMP, CBC, LIPID, GFR, ANEU #### [place] [address] Total Protein 7.7 G/dL Normal 6.4-8.2 [facility] Comment on above: Performed By: #### A DIFF, CMP, CBC, LIPID, GFR, ANEU #### [place] [id number] Urea nitrogen [Mass/Vol] 11 mg/dL Normal 7-18 [facility] Comment on above: Performed By: #### A DIFF, CMP, CBC, LIPID, GFR, ANEU #### [address] [address] LIPIDon 09-08-2024 Cholesterol [Mass/Vol] 177 mg/dL Normal 0-200 [facility] Comment on above: Result Comment: Chol esterol Reference Interval: Less than 200 Desirable 200-239 Borderline high risk 240 and above High risk Performed By: #### A DIFF, CMP, CBC, LIPID, GFR, ANEU #### [address] [address] Cholesterol in HDL [Mass/Vol] 44 mg/dL Normal 40-60 [facility] Comment on above: Performed By: #### A DIFF, CMP, CBC, LIPID, GFR, ANEU #### [address] [address] Cholesterol in LDL [Mass/Vol] 108 mg/dL Normal 0-130 [facility] Comment on above: Performed By: #### A DIFF, CMP, CBC, LIPID, GFR, ANEU #### [address] [address] Triglyceride [Mass/Vol] 125 mg/dL Normal 0-150 [facility] Comment on above: Result Comment: Trig lyceride Reference Interval: Less than 150 Normal 150-199 Borderline high risk 200-499 High risk 500 or higher Very high risk Performed By: #### A DIFF, CMP, CBC, LIPID, GFR, ANEU #### [address] [address] XR FOOT MINIMUM 3 VIEWS LEFT on [...] Jeremie Koehler MD Preliminary Report By: Nohemi Lawrenceharley Electronically signed By Jeremie Koehler MD Dictated Date: 09/08/2024 12:47:00 AM Prelim Date: 09/08/2024 12:51:00 AM Sign Date: 09/08/2024 12:53:40 AM Ordering Provider: SHANIKA TIRADO [facility] Emergency Department Summary on 08-24-2024 Emergency Department Summary [facility] Medical Records Department [address] [place] [address] Emergency Department Summary 08/24/24 MR#: [id number] Acct: [id number] Name: PATRICK KOROMA Rep #: [id number] : 1980 44 From: Cristian Tate PCP: Care Physician,No Primary Status:DEP ER Location: ED HPI History of Present Illness Chief Complaint: Upper Extremity Injury Informant: patient Narrative Narrative: [id number] male presents right shoulder injury 2 hours [...] No surgical intervention. Prior similar symptoms: Yes [facility] Medical History Seroma after procedure Influenza [...] Medical decision (more content not included)... Normal [facility] Shoulder min 2 Viewson 08-24 Shoulder min [address] [facility] Imaging Services [address] [place], [place] [address] Shoulder min 2 Views MR#: [id number] Acct: [id number] Name: PATRICK KOROMA Rep #: [id number] : 1980 M 44 From: Ke Mario PCP: Care Physician,No Primary Status: PRE ER Study: Shoulder min 2 Views Date of Exam: 08/24/24 Exam# [id number] Ordering Dr: Provider,Ed P. PROCEDURE: Right shoulder radiographs REASON FOR EXAM: PAIN, LOSS OF MOBILITY TECHNIQUE: Four views of the right shoulder COMPARISON: None. FINDINGS: See impression RAD/Shoulder min 2 Views IMPRESSION: Negative for acute fracture or malalignment. 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 Mild acromioclavicular joint osteoarthritis. Reading Location: [facility] CC: ED PHYSICIAN PROVIDER; No Primary Care Physician Corporate Officer: Signed Normal [facility] Study Interpretation of outs augusta studyon [...] 05/16/2024 10:27:09 PM Ordering Provider: RADHA Nelson [facility] Emergency Department Summary on 02-24-2024 Emergency Department Summary [facility] Medical Records Department [address] [place] [address] Emergency Department Summary 02/24/24 MR#: [id number] Acct: [id number] Name: PATRICK KOROMA Rep #: [id number] : 1980 44 From: Guevara Choi MD PCP: Care Physician,No Primary Status:DEP ER Location: ED HPI History of Present Illness Chief Complaint: Lower Extremity Injury Informant: patient Narrative Narrative: Patient was working at the [employer], he jumped down off of an elevated surface landing on his feet, with sudden onset of pain followed by swelling in the left midfoot. He did not twist anything. Denies any ankle pain. To bear weight but hurts. Denies any pain or injury elsewhere. [facility] Medical History Seroma after procedure Influenza [...] Vineet Yo MD at 0:12 EDT , Discharge Plan Triage Chief Complaint: Lower Extremity Injury ED Provider: Guevara Choi Dx/ (more content not included)... Normal [facility] Foot min 3 Viewson 4 Foot min [address] [facility] Imaging Services [address] [place] [address] Foot min 3 Views MR#: [id number] Acct: [id number] Name: PATRICK KOROMA Rep #: [id number] : 1980 M 44 From: Vineet Segura PCP: Care Physician,No Primary Status: REG ER Study: Foot min 3 Views Date of Exam: 02/24/24 Exam# [id number] Ordering Dr: Guevara Choi MD [id number] INDICATION: injury EXAMINATION/TECHNIQUE : X-RAY - LEFT [...] Guevara Choi MD; No Primary Care Physician Corporate Officer: Signed Normal [facility] CNCOon 10-21-2023 CNCO Letter Text Normal [facility] CNPNon 10-10-2023 CNPN Telephone (SPNSMN) PATRICK KOROMA ([id number]) 1980 M Date Time Provider Department 10/10/23 [facility] During your visit today, we recorded the [...] message sent. Christy Rodrigez RN BSN Nurse Special Agent [employer] Christy Rodrigez RN 10/21/2023 10:47 AM Signed [...] Dr. Hannah. Christy Rodrigez RN BSN Nurse Special Agent [employer] Allergies As of Date: 10/10/2023 Noted Allergy Reaction ADHESIVE TAPE-SILICONES 10/23/2016 4 - Hives KEFLEX (CEPHALEXIN) 11/12/2016 4 - Hives KEPPRA (LEVETIRACETAM) 10/23/2016 4 - Hives MORPHINE 10/23/2016 10 - Anaphylaxis NAPROXEN 07/08/2017 4 - Hives Date Reviewed: 10/07/2023 Reviewed by: Britney Juarez, RN - Fully Assessed Reason for Visit: Care Coordination [0741] Prescriptions as of 11/04/2023 - gabapentin (NEURONTIN) [...] Status:Closed by CHRISTY RODRIGEZ on 11/04/23 Normal [facility] CONFIRM BLOOD TYPEon 024 ABO B Normal [facility] Comment on above: Order Comment: Speci men Type: BLOOD SPECIMEN Ordering Facility: [facility] Address: [address] [place] [address] Performed By: #### C ONABO #### [facility] CLIA [id number] [address] [place] [address] [place] Rh Nom (Bld) Positive Normal [facility] Comment on above: Order Comment: Speci men Type: BLOOD SPECIMEN Ordering Facility: [facility] Address: [address] [place] [address] Performed By: #### C ONABO #### [facility] CLIA [id number] [address] [place] [address] OF [facility] NURSING PROGon 10-07-2023 NURSING PROG HNO ID: [id number] Author: LESLIE JARRETT RN Service: ? Author [...] was completed by: Leslie Jarrett RN Normal [facility] CBC W Auto Differential pane l (Bld)on 09-16-2023 Basophils (Bld) [#/Vol] 0.06 10*3/uL Normal <0.11 [facility] Comment on above: Order Comment: Speci men Type: BLOOD SPECIMEN Ordering Facility: [facility] Address: [address] [place] [address] Performed By: #### C ONABO #### [facility] CLIA [id number] [address] [place] [address] [place] Basophils/100 WBC (Bld) 0.6 % Normal [facility] Comment on above: Order Comment: Speci men Type: BLOOD SPECIMEN Ordering Facility: [facility] Address: [address] [place] [address] Performed By: #### C ONABO #### [facility] CLIA [id number] [address] [place] [address] [place] Differential cell count method Nom (Bld) Auto Normal [facility] Comment on above: Order Comment: Speci men Type: BLOOD SPECIMEN Ordering Facility: [facility] Address: [address] [place] [address] Performed By: #### C ONABO #### [facility] CLIA [id number] [address] [place] [address] [place] Eosinophils (Bld) [#/Vol] 0.09 10*3/uL Normal <0.46 [facility] Comment on above: Order Comment: Speci men Type: BLOOD SPECIMEN Ordering Facility: [facility] Address: [address] [place] [address] Performed By: #### C ONABO #### [facility] CLIA [id number] [address] [place] [address] [place] Eosinophils/100 WBC (Bld) 1.0 % Normal [facility] Comment on above: Order Comment: Speci men Type: BLOOD SPECIMEN Ordering Facility: [facility] Address: [address], [place] [address] Performed By: #### C ONABO #### [facility] CLIA [id number] [address] [place] [address] [place] Erythrocyte distribution width (RBC) [Ratio] 12.5 % Normal 11.5-15.0 [facility] Comment on above: Order Comment: Speci men Type: BLOOD SPECIMEN Ordering Facility: [facility] Address: [address] [place] [address] Performed By: #### C ONABO #### [facility] CLIA [id number] [address] [place] [address] [place] Hematocrit (Bld) [Volume fraction] 47.3 % Normal 39.0-51.0 [facility] Comment on above: Order Comment: Speci men Type: BLOOD SPECIMEN Ordering Facility: [facility] Address: [address] [place] [address] Performed By: #### C ONABO #### [facility] CLIA [id number] [address] [place] [address] [place] Hemoglobin (Bld) [Mass/Vol] 16.1 g/dL Normal 13.0-17.0 [facility] Comment on above: Order Comment: Speci men Type: BLOOD SPECIMEN Ordering Facility: [facility] Address: [address] [place] [address] Performed By: #### C ONABO #### [facility] CLIA [id number] [address] [place] [address] [place] Immature granulocytes (Bld) [#/Vol] 0.03 10*3/uL Normal <0.10 [facility] Comment on above: Order Comment: Speci men Type: BLOOD SPECIMEN Ordering Facility: [facility] Address: [address] [place] [address] Performed By: #### C ONABO #### [facility] CLIA [id number] [address] [place] [address] [place] Immature granulocytes/100 WBC (Bld) 0.3 % Normal [facility] Comment on above: Order Comment: Speci men Type: BLOOD SPECIMEN Ordering Facility: [facility] Address: [address] [place] [address] Performed By: #### C ONABO #### [facility] CLIA [id number] [address] [place] [address] [place] Lymphocytes (Bld) [#/Vol] 2.61 10*3/uL Normal 1.00-4.00 [facility] Comment on above: Order Comment: Speci men Type: BLOOD SPECIMEN Ordering Facility: [facility] Address: [address] [place] [address] Performed By: #### C ONABO #### [facility] CLIA [id number] [address] [place] [address] [place] Lymphocytes/100 WBC (Bld) 28.2 % Normal [facility] Comment on above: Order Comment: Speci men Type: BLOOD SPECIMEN Ordering Facility: [facility] Address: [address] [place] [address] Performed By: #### C ONABO #### [facility] CLIA [id number] [address] [place] [address] [place] MCH (RBC) [Entitic mass] 31.0 pg Normal 26.0-34.0 [facility] Comment on above: Order Comment: Speci men Type: BLOOD SPECIMEN Ordering Facility: [facility] Address: [address] [place] [address] Performed By: #### C ONABO #### [facility] CLIA [id number] [address] [place] [address] [place] MCHC (RBC) [Mass/Vol] 34.0 g/dL Normal 30.5-36.0 [facility] Comment on above: Order Comment: Speci men Type: BLOOD SPECIMEN Ordering Facility: [facility] Address: [address] [place] [address] Performed By: #### C ONABO #### [facility] CLIA [id number] [address] [place] [address] [place] MCV (RBC) [Entitic vol] 91.1 fL Normal 80.0-100.0 C [facility] Comment on above: Order Comment: Speci men Type: BLOOD SPECIMEN Ordering Facility: [facility] Address: [address] [place] [address] Performed By: #### C ONABO #### [facility] CLIA [id number] [address] [place] [address] [place] Monocytes (Bld) [#/Vol] 0.51 10*3/uL Normal <0.87 [facility] Comment on above: Order Comment: Speci men Type: BLOOD SPECIMEN Ordering Facility: [facility] Address: [address] [place] [address] Performed By: #### C ONABO #### [facility] CLIA [id number] [address] [place] [address] [place] Monocytes/100 WBC (Bld) 5.5 % Normal C [facility] Comment on above: Order Comment: Speci men Type: BLOOD SPECIMEN Ordering Facility: [facility] Address: [address] [place] [address] Performed By: #### C ONABO #### [facility] CLIA [id number] [address] [place] [address] [place] Neutrophils (Bld) [#/Vol] 5.94 10*3/uL Normal 1.45-7.50 [facility] Comment on above: Order Comment: Speci men Type: BLOOD SPECIMEN Ordering Facility: [facility] Address: [address] [place] [address] Performed By: #### C ONABO #### [facility] CLIA [id number] [address] [place] [address] [place] Neutrophils/100 WBC (Bld) 64.4 % Normal [facility] Comment on above: Order Comment: Speci men Type: BLOOD SPECIMEN Ordering Facility: [facility] Address: [address] [place] [address] Performed By: #### C ONABO #### [facility] CLIA [id number] [address] [place] [address] [place] Nucleated RBC (Bld) [#/Vol] 10*3/uL Normal <0.01 [facility] Comment on above: Order Comment: Speci men Type: BLOOD SPECIMEN Ordering Facility: [facility] Address: [address] [place] [address] Performed By: #### C ONABO #### [facility] CLIA [id number] [address] [place] [address] [place] Nucleated RBC/100 WBC (Bld) [Ratio] 0.0 /100 WBC Normal [facility] Comment on above: Order Comment: Speci men Type: BLOOD SPECIMEN Ordering Facility: [facility] Address: [address] [place] [address] Performed By: #### C ONABO #### [facility] CLIA [id number] [address] [place] [address] [place] Platelet mean volume (Bld) [Entitic vol] 9.6 fL Normal 9.0-12.7 [facility] Comment on above: Order Comment: Speci men Type: BLOOD SPECIMEN Ordering Facility: [facility] Address: [address] [place] [address] Performed By: #### C ONABO #### [facility] CLIA [id number] [address] [place] [address] [place] Platelets (Bld) [#/Vol] 307 10*3/uL Normal 150-400 [facility] Comment on above: Order Comment: Speci men Type: BLOOD SPECIMEN Ordering Facility: [facility] Address: [address] [place] [address] Performed By: #### C ONABO #### [facility] CLIA [id number] [address] [place] [address] [place] RBC (Bld) [#/Vol] 5.19 10*6/uL Normal 4.20-6.00 [facility] Comment on above: Order Comment: Speci men Type: BLOOD SPECIMEN Ordering Facility: [facility] Address: [address] [place] [address] Performed By: #### C ONABO #### [facility] CLIA [id number] [address] [place] [address] [place] WBC (Bld) [#/Vol] 9.24 10*3/uL Normal 3.70-11.00 [facility] Comment on above: Order Comment: Speci men Type: BLOOD SPECIMEN Ordering Facility: [facility] Address: [address] [place] [address] Performed By: #### C ONABO #### [facility] CLIA [id number] [address] [place] [address] [place] Comprehensive metabolic 2000 panelon 09-16-2023 Albumin [Mass/Vol] 4.1 g/dL Normal 3.9-4.9 [facility] Comment on above: Order Comment: Speci men Type: BLOOD SPECIMEN Ordering Facility: [facility] Address: [address] [place] [address] Performed By: #### C ONABO #### [facility] CLIA [id number] [address] [place] [address] [place] ALP [Catalytic activity/Vol] 46 U/L Normal 38-113 [facility] Comment on above: Order Comment: Speci men Type: BLOOD SPECIMEN Ordering Facility: [facility] Address: [address] [place] [address] Performed By: #### C ONABO #### [facility] CLIA [id number] [address] [place] [address] [place] ALT [Catalytic activity/Vol] 21 U/L Normal 10-54 [facility] Comment on above: Order Comment: Speci men Type: BLOOD SPECIMEN Ordering Facility: [facility] Address: [address] [place] [address] Performed By: #### C ONABO #### [facility] CLIA [id number] [address] [place] [address] [place] Anion gap [Moles/Vol] 12 mmol/L Normal 9-18 [facility] Comment on above: Order Comment: Speci men Type: BLOOD SPECIMEN Ordering Facility: [facility] Address: [address] [place] [address] Performed By: #### C ONABO #### [facility] CLIA [id number] [address] [place] [address] [place] AST [Catalytic activity/Vol] 19 U/L Normal 14-40 [facility] Comment on above: Order Comment: Speci men Type: BLOOD SPECIMEN Ordering Facility: [facility] Address: [address] [place] [address] Performed By: #### C ONABO #### [facility] CLIA [id number] [address] [place] [address] [place] Bilirubin [Mass/Vol] 0.2 mg/dL Normal 0.2-1.3 [facility] Comment on above: Order Comment: Speci men Type: BLOOD SPECIMEN Ordering Facility: [facility] Address: [address] [place] [address] Performed By: #### C ONABO #### [facility] CLIA [id number] [address] [place] [address] [place] Calcium [Mass/Vol] 9.1 mg/dL Normal 8.5-10.2 [facility] Comment on above: Order Comment: Speci men Type: BLOOD SPECIMEN Ordering Facility: [facility] Address: [address] [place] [address] Performed By: #### C ONABO #### [facility] CLIA [id number] [address] [place] [address] [place] Chloride [Moles/Vol] 104 mmol/L Normal 97-105 [facility] Comment on above: Order Comment: Speci men Type: BLOOD SPECIMEN Ordering Facility: [facility] Address: [address] [place] [address] Performed By: #### C ONABO #### [facility] CLIA [id number] [address] [place] [address] [place] CO2 [Moles/Vol] 20 mmol/L Low 22-30 [facility] Comment on above: Order Comment: Speci men Type: BLOOD SPECIMEN Ordering Facility: [facility] Address: [address] [place] [address] Performed By: #### C ONABO #### [facility] CLIA [id number] [address] [place] [address] [place] [facility] Creatinine [Mass/Vol] 0.73 mg/dL Normal 0.73-1.22 [facility] Comment on above: Order Comment: Speci men Type: BLOOD SPECIMEN Ordering Facility: [facility] Address: [address] [place] [address] Performed By: #### C ONABO #### [facility] CLIA [id number] [address] [place] [address] [place] Creatinine and Glomerular filtration rate.predicted panel (S/P/Bld) 115 mL/min/1.73m??? Normal >=60 [facility] Comment on above: Order Comment: Speci men Type: BLOOD SPECIMEN Ordering Facility: [facility] Address: [address] [place] [address] Result Comment: Katie mated Glomerular Filtration Rate [...] ONABO #### [facility] IA [id number] [address] [place] [address] [place] Glucose [Mass/Vol] 124 mg/dL High 74-99 [facility] Comment on above: Order Comment: Speci men Type: BLOOD SPECIMEN Ordering Facility: [facility] Address: [address] [place] [address] Result Comment: The [place] [employer] (ADA) provides guidance for cutoff [...] Standards of Medical Care in Diabetes 2016, [place] [employer]. Diabetes Care. 2016.39(Suppl 1). Performed By: #### C ONABO #### [facility] IA [id number] [address] [place] [address] [place] Potassium [Moles/Vol] 4.2 mmol/L Normal 3.7-5.1 [facility] Comment on above: Order Comment: Wingi men Type: BLOOD SPECIMEN Ordering Facility: [facility] Address: [address] [place] [address] Performed By: #### C ONABO #### [facility] CLIA [id number] [address] [place] [address] [place] Protein [Mass/Vol] 6.8 g/dL Normal 6.3-8.0 [facility] Comment on above: Order Comment: Vikash vasquez Type: BLOOD SPECIMEN Ordering Facility: [facility] Address: [address] [place] [address] Performed By: #### C ONABO #### [facility] CLIA [id number] [address] [place] [address] [place] Sodium [Moles/Vol] 136 mmol/L Normal 136-144 [facility] Comment on above: Order Comment: Speci men Type: BLOOD SPECIMEN Ordering Facility: [facility] Address: [address] [place] [address] Performed By: #### C ONABO #### [facility] CLIA [id number] [address] [place] [address] [place] Urea nitrogen [Mass/Vol] 9 mg/dL Normal 9-24 [facility] Comment on above: Order Comment: Speci men Type: BLOOD SPECIMEN Ordering Facility: [facility] Address: [address] [place] [address] Performed By: #### C ONABO #### [facility] CLIA [id number] [address] [place] [address] [place] ECG COMPLETEon 09-16-2023 ECG COMPLETE Ventricular Rate : 9 6 BPM Atrial Rate : 96 BPM P-R Interval : 136 ms QRS Duration : 94 ms Q-T Interval : 362 ms QTC Calculation(Bazett) : 457 ms Calculated P Adah : 30 degrees Calculated R Adah : 19 degrees Calculated T Adah : 18 degrees NORMAL SINUS RHYTHM NORMAL ECG Confirmed by MD SHILOH, PhD, MATTHEW ([id number]) on 09/25/2023 1:38:47 PM NAME : PATRICK KOROMA PID : [id number] : 1980 Gender : Male Race : ORD : [id number] Procedure Date : Sep 16 2023 12:20:58 Edit Date : Sep 25 2023 13:38:51 Diagnosis: NORMAL SINUS RHYTHM NORMAL ECG Confirmed by MD SHILOH, PhD, MATTHEW ([id number]) on 09/25/2023 1:38:47 PM Test Reason : Location : 119 : A17 A17 Overread By : MD SHILOH, PhD,MATTHEW Edited By : MD SHILOH, PhD,MATTHEW Referred By : JESE RICHARDSON Acquired by : ESAU MCGARRY [facility] HISTORY PHYSICALon HISTORY PHYSICAL HNO ID: [id number] Author: DIANA GRAHAM PA-C Service: ? Author Type: Physician Polisher Implant Type: H&P Filed: 09/16/2023 12:27 Note Text: [...] requiring medication, no history of angina, CHF, NE, cardiac surgery or stents. Denies rest pain, [...] 1.00 Year (more content not included)... Normal [facility] PT panel Coag (PPP)on 2023 INR Coag (PPP) [Relative time] 0.9 {INR} Normal 0.9-1.3 [facility] Comment on above: Order Comment: Vikash vasquez Type: BLOOD SPECIMEN Ordering Facility: [facility] Address: [address] [place] [address] Result Comment: Bisi min K Antagonist (VKA) Therapeutic Range: INR 2 to 3 (Target INR of 2.5) Note: For patients treated with VKA drugs, such as warfarin, the [place] [employer] 2012 Guideline recommends [...] Chest 2012, 141:7S-47S Sharla RA, et al. [facility] 2017, 70: 252-289 Performed By: #### C ONABO #### [facility] [place] [id number] [address] [place] [address] [place] PT Coag (PPP) [Time] 10.1 s Normal 9.7-13.0 [facility] [place] [facility] Comment on above: Order Comment: Vikash vasquez Type: BLOOD SPECIMEN Ordering Facility: [facility] Address: [address] [place] [address] Performed By: #### C ONABO #### [facility] CLIA [id number] [address] [place] [address] [place] TYPE AND SCREEN,30 DAYon ABO B Normal [facility] Comment on above: Order Comment: Speci men Type: BLOOD SPECIMEN Ordering Facility: [facility] Address: [address] [place] [address] Performed By: #### T SCR30 #### [facility] CLIA [id number] [address] [place] HISTORICAL AB SCR STATUS Negative Normal [facility] Comment on above: Order Comment: Speci men Type: BLOOD SPECIMEN Ordering Facility: [facility] Address: [address] [place] [address] Performed By: #### T SCR30 #### [facility] CLIA [id number] [address] [place] [address] [place] Rh Nom (Bld) Positive Normal [facility] Comment on above: Order Comment: Speci men Type: BLOOD SPECIMEN Ordering Facility: [facility] Address: [address] [place] [address] Performed By: #### T SCR30 #### [facility] CLIA [id number] [address] [place] [address] [place] aPTT PPPon 09-16-2023 aPTT Coag (PPP) [Time] 29.1 s Normal 23.0-32.4 [facility] Comment on above: Order Comment: Speci men Type: BLOOD SPECIMEN Ordering Facility: [facility] Address: [address] [place] [address] Performed By: #### C ONABO #### [facility] CLIA [id number] [address] [place] [address] [place] CNOVon 08-06-2023 CNOV Office Visit (NPRC21 ) PATRICK KOROMA ([id number]) 1980 M Date Time Provider Department 08/06/23 9:30 AM KELLEY MERAZ NPRC21 During your visit today, we recorded the following information about you: Pulse Blood pressure Weight Height 107/minute 153/101 158.8 kg 1.88 m Kelley Meraz APRN.ALMA NOEL 08/06/2023 10:16 AM Signed In-Person Visit Present: patient [facility] Neurological [facility] August 06, 2023 Patrick Koroma is a 43 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 He was referred by Linda Griffiths CNP (General Surgery) [address] [address]. This consultation was shared with the referral source via the [facility] electronic medical record. The patient understanding of [...] activity was identified. 08/06/2023 by Kelley Meraz APRN.IN CLASS SPECIAL EDUCATION TEACHER, DNP Functional Limitations: The patient has been [...] hematoma (HCC) (more content not included)... Normal [facility] CNOVon 07-07-2023 CNOV Office Visit (JUNG ) PATRICK KOROMA ([id number]) 1980 M Date Time Provider Department 07/07/23 [...] Viviana Teresa MD 07/07/2023 9:35 AM Signed [facility] - HISTORY AND PHYSICAL Chief Complaint: pain to the left of the hernia repair HPI: Patrick A Ga is a 43 year old male with PMH post traumatic seizure disorder, s/p appendectomy and multiple hernia repair who presents with pain lateral to the hernia repair site On 11/22/21 he had a robotic assisted repair of recurrent ventral hernia at [place] with Dr Aaron Duque with removal of [...] is warm (more content not included)... Normal [facility] .Auto Diffon 06-28-2023 Basophil, Absolute 0.0 10 3/mcL Normal 0.0-0.2 [facility] ([place]) Comment on above: Performed By: #### C LANI, CORNELIA, ANURAG CYR, LIP, ANEU, GFR #### [address] [place] [address] [place], [place] [address] Basophils/100 WBC (Bld) 0.2 % Normal 0.0-2.5 A [facility] ([place]) Comment on above: Performed By: #### C CORNELIA GARIBAY ADIFF, MDW, LIP, ANEU, GFR #### [address] [place], [place] [address] Eosinophil, Absolute 0.2 10 3/mcL Normal 0.0-0.4 [facility] ([place]) Comment on above: Performed By: #### C LANI, CORNELIA, ANURAG CYR, LIP, ANEU, GFR #### [address] [address] Eosinophils/100 WBC (Bld) 2.4 % Normal 0.0-7.0 [facility] ([place]) Comment on above: Performed By: #### C BC, CMP, ADIFF, MDW, LIP, ANEU, GFR #### [address] [address] Lymphocyte, Absolute 2.8 10 3/mcL Normal 0.8-3.9 [facility] ([place]) Comment on above: Performed By: #### C BC, CMP, ADIFF, MDW, LIP, ANEU, GFR #### [address] [address] Lymphocytes/100 WBC (Bld) 32.1 % Normal 10.0-50.0 [facility] ([place]) Comment on above: Performed By: #### C BC, CMP, ADIFF, MDW, LIP, ANEU, GFR #### [address] [address] Monocyte, Absolute 0.6 10 3/mcL Normal 0.2-1.0 [facility] ([place]) Comment on above: Performed By: #### C BC, CMP, ADIFF, MDW, LIP, ANEU, GFR #### [address] [address] Monocytes/100 WBC (Bld) 6.7 % Normal 1.7-13.0 A [facility] ([place]) Comment on above: Performed By: #### C BC, CMP, ADIFF, MDW, LIP, ANEU, GFR #### [address] [address] Neutrophils/100 WBC (Bld) 58.6 % Normal 37.0-80.0 [facility] ([place]) Comment on above: Performed By: #### C BC, CMP, ADIFF, MDW, LIP, ANEU, GFR #### [address] [address] .GFRon 06-28-2023 GFR 110 ml/min/1.73sqm Normal [facility] ([place]) Comment on above: Result Comment: GFR Population [...] KLARISSA LOCKE MDW, LIP, ANEU, GFR #### [address] [address] GFR Non- 91 ml/min/1.73sqm Normal [facility] ([place]) Comment on above: Result Comment: GFR Population [...] square meters Performed By: #### C CORNELIA GARIBAY ADIFF, MDW, LIP, ANEU, GFR #### [address] [address] .MDWon 06-28-2023 Monocyte Distribution Width 20.24 High 0.00-20.00 [facility] ([place]) Comment on above: Result Comment: For adults in ED, MDW>20.0 may be associated with a higher risk of sepsis during the first 12hrs of hospital admission Performed By: #### C CORNELIA GARIBAY ADIFF, MDW, LIP, ANEU, GFR #### [address] [address] .NEUABSon 06-28-2023 Neutrophil, Absolute 5.2 10 3/mcL Normal 2.9-6.2 [facility] ([place]) Comment on above: Performed By: #### C LANI, CORNELIA, ANURAG CYR, LIP, ANEU, GFR #### [address] [address] .Urinalysis Microscopic (AO) on 06-28-2023 UA Amorphus 2+ /hpf Normal [facility] ([place]) Comment on above: Performed By: #### C LANI, CORNELIA, ANURAG CYR, LIP, ANEU, GFR #### [address] [address] UA Mucous Trace Normal [facility] ([place]) Comment on above: Performed By: #### C LANI, KLARISSA LOCKE MDW, LIP, ANEU, GFR #### [address] [address] UA RBC None Seen Normal None Seen [facility] ([place]) Comment on above: Performed By: #### C LANI, KLARISSA LOCKE MDW, LIP, ANEU, GFR #### [address] [address] UA Squam Epithelial None Seen Normal None Seen [facility] ([place]) Comment on above: Performed By: #### C LANI, KLARISSA LOCKE MDW, LIP, ANEU, GFR #### [address] [address] UA WBC None Seen Normal None Seen [facility] ([place]) Comment on above: Performed By: #### C CORNELIA GARIBAY ADIFF, MDW, LIP, ANEU, GFR #### [address] [address] CBCon 06-28-2023 Erythrocyte distribution width (RBC) [Ratio] 13.5 % Normal 11.5-14.5 [facility] ([place]) Comment on above: Performed By: #### C BC, CMP, ADIFF, MDW, LIP, ANEU, GFR #### [address] [address] Hematocrit (Bld) [Volume fraction] 44.3 % Normal 42.0-52.0 [facility] ([place]) Comment on above: Performed By: #### C BC, CMP, ADIFF, MDW, LIP, ANEU, GFR #### [address] [address] Hgb 15.4 G/dL Normal 14.0-18.0 [facility] ([place]) Comment on above: Performed By: #### C BC, CMP, ADIFF, MDW, LIP, ANEU, GFR #### [address] [address] MCH (RBC) [Entitic mass] 31.5 pg High 27.0-31.2 [facility] ([place]) Comment on above: Performed By: #### C BC, CMP, ADIFF, MDW, LIP, ANEU, GFR #### [address] [address] MCHC 34.8 G/dL Normal 31.8-35.4 [facility] ([place]) Comment on above: Performed By: #### C BC, CMP, ADIFF, MDW, LIP, ANEU, GFR #### [address] [address] MCV (RBC) [Entitic vol] 90.6 fL Normal 80.0-94.0 [facility] ([place]) Comment on above: Performed By: #### C BC, CMP, ADIFF, MDW, LIP, ANEU, GFR #### [address] [address] Platelet 294 10 3/mcL Normal 130-400 [facility] ([place]) Comment on above: Performed By: #### C BC, CMP, ADIFF, MDW, LIP, ANEU, GFR #### [address] [address] Platelet mean volume (Bld) [Entitic vol] 7.2 fL Low 7.4-10.4 [facility] ([place]) Comment on above: Performed By: #### C BC, CMP, ADIFF, MDW, LIP, ANEU, GFR #### [address] [address] RBC 4.89 10 6/mcL Normal 4.04-6.13 [facility] ([place]) Comment on above: Performed By: #### C BC, CMP, ADIFF, MDW, LIP, ANEU, GFR #### [place] [id number] WBC 8.8 10 3/mcL Normal 4.6-10.8 [facility] ([place]) Comment on above: Performed By: #### C BC, CMP, ADIFF, MDW, LIP, ANEU, GFR #### [address] [address] CMPon 06-28-2023 Albumin Level 3.3 G/dL Low 3.5-5.0 [facility] ([place]) Comment on above: Performed By: #### C BC, CMP, ADIFF, MDW, LIP, ANEU, GFR #### [address] [address] Albumin/Globulin [Mass ratio] 0.9 {ratio} Low 1.1-2.5 [facility] ([place]) Comment on above: Performed By: #### C BC, CMP, ADIFF, MDW, LIP, ANEU, GFR #### [address] [address] ALP [Catalytic activity/Vol] 46 U/L Normal 40-135 [facility] ([place]) Comment on above: Performed By: #### C BC, CMP, ADIFF, MDW, LIP, ANEU, GFR #### [address] [address] ALT [Catalytic activity/Vol] 31 U/L Normal 16-63 [facility] ([place]) Comment on above: Performed By: #### C BC, CMP, ADIFF, MDW, LIP, ANEU, GFR #### [address] [address] AST [Catalytic activity/Vol] 16 U/L Normal 10-40 [facility] ([place]) Comment on above: Performed By: #### C BC, CORNELIA, ANURAG CYR, LIP, ANEU, GFR #### [address] [address] Bili Total 0.3 mg/dL Normal 0.2-1.0 [facility] ([place]) Comment on above: Result Comment: Use of this assay is not recommended for patients undergoing treatment with eltrombopag due to the potential for falsely elevated results. Performed By: #### C LANI, CORNELIA, KLARISSA, ANURAG, LIP, ANEU, GFR #### [address] [address] BUN/Creatinine Ratio 13 ratio Normal 7-27 [facility] ([place]) Comment on above: Performed By: #### C LANI, CORNELIA, KLARISSA, ANURAG, LIP, ANEU, GFR #### [address] [address] Calcium [Mass/Vol] 9.1 mg/dL Normal 8.4-10.2 [facility] ([place]) Comment on above: Performed By: #### C LANI, CORNELIA, ANURAG CYR, LIP, ANEU, GFR #### [address] [address] Chloride [Moles/Vol] 103 mmol/L Normal 98-107 [facility] ([place]) Comment on above: Performed By: #### C BC, CORNELIA, ANURAG CYR, LIP, ANEU, GFR #### [address] [address] CO2 [Moles/Vol] 30 mmol/L High 22-29 [facility] ([place]) Comment on above: Performed By: #### C BC, CORNELIA, KLARISSA, W, LIP, ANEU, GFR #### [address] [address] Creatinine [Mass/Vol] 0.91 mg/dL Normal 0.70-1.30 [facility] ([place]) Comment on above: Performed By: #### C BC, CMP, ADIFF, MDW, LIP, ANEU, GFR #### [address] [address] Electrolyte Balance 6.0 mEq/L Normal 4.0-15.0 [facility] ([place]) Comment on above: Performed By: #### C BC, CMP, ADIFF, MDW, LIP, ANEU, GFR #### [address] [address] Globulin 3.5 G/dL Normal [facility] ([place]) Comment on above: Performed By: #### C BC, CMP, ADIFF, MDW, LIP, ANEU, GFR #### [address] [address] Glucose [Mass/Vol] 137 mg/dL High 70-105 [facility] ([place]) Comment on above: Performed By: #### C BC, CMP, ADIFF, MDW, LIP, ANEU, GFR #### [address] [address] Potassium [Moles/Vol] 3.8 mmol/L Normal 3.5-5.1 [facility] ([place]) Comment on above: Performed By: #### C BC, CMP, ADIFF, MDW, LIP, ANEU, GFR #### [address] [address] Sodium [Moles/Vol] 139 mmol/L Normal 136-145 [facility] ([place]) Comment on above: Performed By: #### C BC, CMP, ADIFF, MDW, LIP, ANEU, GFR #### [address] [address] Total Protein 6.8 G/dL Normal 6.4-8.2 [facility] ([place]) Comment on above: Performed By: #### C BC, CMP, ADIFF, MDW, LIP, ANEU, GFR #### [address] [address] Urea nitrogen [Mass/Vol] 12 mg/dL Normal 7-18 [facility] ([place]) Comment on above: Performed By: #### C BC, CMP, KLARISSA, MDW, LIP, ANEU, GFR #### [address] [place] [place], [place] [address] CT ABD/PELVIS W/ IV CONTRAST ONLYon 06-28-2023 [...] 06/28/2023 4:25:43 PM Ordering Provider: YOUNG Nelson [facility] ([place]) LABORATORYOrdered By: Becka Artis on 06-28-2023 Appearance [...] Lvl 1.4 mmol/L Normal 0.4-2.0 [facility] ([place]) Comment on above: Performed By: #### L AC #### Brett [address] [address] LIPon 06-28-2023 Lipase Level 28 U/L Normal 16-77 [facility] ([place]) Comment on above: Performed By: #### C BC, CMP, ADIFF, MDW, LIP, ANEU, GFR #### Brett [address] [address] No Panel Informationon 06-28 Microscopic examination of blood, culture Culture has been received in lab and is no growth to date. Routine cultures are held for 5 days. [facility] UAon 06-28-2023 Color (U) Yellow Normal [facility] ([place]) Comment on above: Performed By: #### C BC, CORNELIA, KLARISSA, ANURAG, LIP, ANEU, GFR #### [address] [address] Glucose (U) [Mass/Vol] Negative Normal Negative [facility] ([place]) Comment on above: Performed By: #### C LANI, CORNELIA, KLARISSA, ANURAG, LIP, ANEU, GFR #### [address] [address] Ketones Ql (U) Negative Normal Negative [facility] ([place]) Comment on above: Performed By: #### C LANI, CORNELIA, KLARISSA, ANURAG, LIP, ANEU, GFR #### [address] [address] UA Appear Slightly Cloudy Abnormal Clear [facility] ([place]) Comment on above: Performed By: #### C BC, CORNELIA, ANURAG CYR, LIP, ANEU, GFR #### [address] [address] UA Blood Negative Normal Negative [facility] ([place]) Comment on above: Performed By: #### C BC, CMP, KLARISSA, ANURAG, LIP, ANEU, GFR #### [address] [address] UA Leuk Est Negative Normal Negative [facility] ([place]) Comment on above: Performed By: #### C BC, CORNELIA, KLARISSA, ANURAG, LIP, ANEU, GFR #### [address] [address] UA Nitrite Negative Normal Negative [facility] ([place]) Comment on above: Performed By: #### C BC, CORNELIA, KLARISSA, ANURAG, LIP, ANEU, GFR #### [address] [address] UA pH 7.0 Normal 5.0 - 8.0 [facility] ([place]) Comment on above: Performed By: #### C LANI, CORNELIA, ANURAG CYR, LIP, ANEU, GFR #### [address] [address] UA Protein Negative Normal Negative [facility] ([place]) Comment on above: Performed By: #### C LANI, CORNELIA, KLARISSA, ANURAG, LIP, ANEU, GFR #### [address] [address] UA Spec Grav 1.020 Normal 1.015-1.025 [facility] ([place]) Comment on above: Performed By: #### C LANI, CORNELIA, KLARISSA, ANURAG, LIP, ANEU, GFR #### [address] [address] UA Specimen Type Clean Catch Normal [facility] ([place]) Comment on above: Performed By: #### C LANI, CORNELIA, KLARISSA, ANURAG, LIP, ANEU, GFR #### [address] [address] UA Urobilinogen 0.2 E.U./dL Normal 0.2-1.0 [facility] ([place]) Comment on above: Performed By: #### C LANI, CORNELIA, KLARISSA, ANURAG, LIP, ANEU, GFR #### [address] [address] Urobilinogen (U) [Mass/Vol] Negative Normal Negative [facility] ([place]) Comment on above: Performed By: #### C LANI, CORNELIA, KLARISSA, W, LIP, ANEU, GFR #### [address] [address] CNPVesna 06-25-2023 BERTN Telephone (AradigmN) PATRICK KOROMA ([id number]) 1980 M Date Time Provider Department 06/25/23 MOHAN MILLER During your visit today, we recorded the following information about you: Mohan Miller OCCA 06/25/2023 12:52 PM Signed Reviewed chart for clinic prep. Patient has recent CT in [facility]. Obtained operative reports from Brett [place], sent for scanning. Edi Miller EMT-P, MAR Allergies As of Date: 06/25/2023 Noted [...] Status:Closed by MOHAN MILLER on 06/25/23 Normal [facility] .Auto Diffon 06-08-2023 Basophil, Absolute 0.1 10 3/mcL Normal 0.0-0.2 [facility] ([place]) Comment on above: Performed By: #### C BC, CMP, KLARISSA, W, LIP, ANEU, GFR #### [address] [address] Basophils/100 WBC (Bld) 1.2 % Normal 0.0-2.5 A [facility] ([place]) Comment on above: Performed By: #### C BC, CMP, ADIFF, MDW, LIP, ANEU, GFR #### [address] [address] Eosinophil, Absolute 0.2 10 3/mcL Normal 0.0-0.4 [facility] ([place]) Comment on above: Performed By: #### C BC, CMP, ADIFF, MDW, LIP, ANEU, GFR #### [address] [address] Eosinophils/100 WBC (Bld) 2.1 % Normal 0.0-7.0 [facility] ([place]) Comment on above: Performed By: #### C BC, CMP, ADIFF, MDW, LIP, ANEU, GFR #### [address] [address] Lymphocyte, Absolute 2.8 10 3/mcL Normal 0.8-3.9 [facility] ([place]) Comment on above: Performed By: #### C BC, CMP, ADIFF, MDW, LIP, ANEU, GFR #### [address] [address] Lymphocytes/100 WBC (Bld) 26.1 % Normal 10.0-50.0 [facility] ([place]) Comment on above: Performed By: #### C BC, CMP, ADIFF, MDW, LIP, ANEU, GFR #### [address] [address] Monocyte, Absolute 0.6 10 3/mcL Normal 0.2-1.0 [facility] ([place]) Comment on above: Performed By: #### C BC, CMP, ADIFF, MDW, LIP, ANEU, GFR #### [address] [address] Monocytes/100 WBC (Bld) 5.8 % Normal 1.7-13.0 A [facility] ([place]) Comment on above: Performed By: #### C BC, CMP, KLARISSA, ANURAG, LIP, ANEU, GFR #### [address] [address] Neutrophils/100 WBC (Bld) 64.8 % Normal 37.0-80.0 [facility] ([place]) Comment on above: Performed By: #### C BC, CMP, KLARISSA, W, LIP, ANEU, GFR #### [address] [address] .GFRon 06-08-2023 GFR 124 ml/min/1.73sqm Normal [facility] ([place]) Comment on above: Result Comment: GFR Population [...] CORNELIA, KLARISSA, W, LIP, ANEU, GFR #### [address] [address] GFR Non- 102 ml/min/1.73sqm Normal [facility] ([place]) Comment on above: Result Comment: GFR Population [...] CORNELIA, KLARISSA, MDW, LIP, ANEU, GFR #### [address] [address] .MDWon 06-08-2023 Monocyte Distribution Width 18.49 Normal 0.00-20.00 [facility] ([place]) Comment on above: Result Comment: For ED adult patients suspected of sepsis, MDW<=20.0 does not rule out sepsis or risk of sepsis Performed By: #### C BC, CMP, KLARISSA, MDW, LIP, ANEU, GFR #### [address] [address] .NEUABSon 06-08-2023 Neutrophil, Absolute 6.9 10 3/mcL High 2.9-6.2 [facility] ([place]) Comment on above: Performed By: #### C BC, CMP, KLARISSA, MDW, LIP, ANEU, GFR #### [address] [address] BMPon 06-08-2023 BUN/Creatinine Ratio 15 ratio Normal 7-27 [facility] ([place]) Comment on above: Performed By: #### C BC, CMP, KLARISSA, MDW, LIP, ANEU, GFR #### [address] [address] Calcium [Mass/Vol] 8.9 mg/dL Normal 8.4-10.2 [facility] ([place]) Comment on above: Performed By: #### C BC, CMP, KLARISSA, MDW, LIP, ANEU, GFR #### [address] [address] Chloride [Moles/Vol] 104 mmol/L Normal 98-107 [facility] ([place]) Comment on above: Performed By: #### C BC, CMP, ADJAN, MDW, LIP, ANEU, GFR #### [address] [address] CO2 [Moles/Vol] 26 mmol/L Normal 22-29 [facility] ([place]) Comment on above: Performed By: #### C BC, CMP, ADIFF, MDW, LIP, ANEU, GFR #### [address] [address] Creatinine [Mass/Vol] 0.82 mg/dL Normal 0.70-1.30 [facility] ([place]) Comment on above: Performed By: #### C BC, CMP, ADIFF, MDW, LIP, ANEU, GFR #### [address] [address] Electrolyte Balance 10.0 mEq/L Normal 4.0-15.0 [facility] ([place]) Comment on above: Performed By: #### C BC, CMP, ADIFF, MDW, LIP, ANEU, GFR #### [address] [address] Glucose [Mass/Vol] 110 mg/dL High 70-105 [facility] ([place]) Comment on above: Performed By: #### C BC, CMP, ADIFF, MDW, LIP, ANEU, GFR #### [address] [address] Potassium [Moles/Vol] 4.2 mmol/L Normal 3.5-5.1 [facility] ([place]) Comment on above: Performed By: #### C BC, CMP, ADIFF, MDW, LIP, ANEU, GFR #### [address] [address] Sodium [Moles/Vol] 140 mmol/L Normal 136-145 [facility] ([place]) Comment on above: Performed By: #### C BC, CMP, ADIFF, MDW, LIP, ANEU, GFR #### [address] [address] Urea nitrogen [Mass/Vol] 12 mg/dL Normal 7-18 [facility] ([place]) Comment on above: Performed By: #### C BC, CMP, ADIFF, MDW, LIP, ANEU, GFR #### [address] [address] CBCon 06-08-2023 Erythrocyte distribution width (RBC) [Ratio] 13.6 % Normal 11.5-14.5 [facility] ([place]) Comment on above: Performed By: #### C BC, CMP, ADIFF, MDW, LIP, ANEU, GFR #### [address] [address] Hematocrit (Bld) [Volume fraction] 43.4 % Normal 42.0-52.0 [facility] ([place]) Comment on above: Performed By: #### C BC, CMP, ADIFF, MDW, LIP, ANEU, GFR #### [address] [address] Hgb 14.9 G/dL Normal 14.0-18.0 [facility] ([place]) Comment on above: Performed By: #### C BC, CMP, ADIFF, MDW, LIP, ANEU, GFR #### [address] [address] MCH (RBC) [Entitic mass] 31.1 pg Normal 27.0-31.2 [facility] ([place]) Comment on above: Performed By: #### C BC, CMP, ADIFF, MDW, LIP, ANEU, GFR #### [address] [address] MCHC 34.4 G/dL Normal 31.8-35.4 [facility] ([place]) Comment on above: Performed By: #### C BC, CMP, ADIFF, MDW, LIP, ANEU, GFR #### [address] [address] MCV (RBC) [Entitic vol] 90.5 fL Normal 80.0-94.0 A [facility] ([place] Comment on above: Performed By: #### C BC, CMP, ADIFF, MDW, LIP, ANEU, GFR #### [address] [address] Platelet 283 10 3/mcL Normal 130-400 [facility] ([place]) Comment on above: Performed By: #### C BC, CMP, ADIFF, MDW, LIP, ANEU, GFR #### [address] [address] Platelet mean volume (Bld) [Entitic vol] 8.0 fL Normal 7.4-10.4 [facility] ([place] Comment on above: Performed By: #### C BC, CMP, KLARISSA, W, LIP, ANEU, GFR #### [place] [id number] RBC 4.80 10 6/mcL Normal 4.04-6.13 [facility] ([place]) Comment on above: Performed By: #### C BC, CMP, KLARISSA, MDW, LIP, ANEU, GFR #### [place] [address] WBC 10.6 10 3/mcL Normal 4.6-10.8 [facility] ([place]) Comment on above: Performed By: #### C BC, CMP, KLARISSA, MDW, LIP, ANEU, GFR #### [address] [address] LABORATORYOrdered By: SYSTEM SYSTEM on 06-08-2023 Basophil, [...] SS .GFRon 05-17-2023 GFR 111 ml/min/1.73sqm Normal [facility] ([place]) Comment on above: Result Comment: GFR Population [...] KLARISSA LOCKE MDW, LIP, ANEU, GFR #### [address] [address] GFR Non- 92 ml/min/1.73sqm Normal [facility] ([place]) Comment on above: Result Comment: GFR Population [...] KLARISSA LOCKE MDW, LIP, ANEU, GFR #### [place] [phone] [place], [place] [address] [facility] BUN/Creatinine Ratio 14 ratio Normal 7-27 [facility] ([place]) Comment on above: Performed By: #### C LANI, KLARISSA LOCKE MDW, LIP, ANEU, GFR #### [place] [phone] [place], [place] [address] Calcium [Mass/Vol] 9.5 mg/dL Normal 8.4-10.2 [facility] ([place]) Comment on above: Performed By: #### C BC, CMP, ADIFF, MDW, LIP, ANEU, GFR #### [address] [address] Chloride [Moles/Vol] 103 mmol/L Normal 98-107 [facility] ([place]) Comment on above: Performed By: #### C BC, CMP, ADIFF, MDW, LIP, ANEU, GFR #### [address] [address] CO2 [Moles/Vol] 24 mmol/L Normal 22-29 [facility] ([place]) Comment on above: Performed By: #### C BC, CMP, ADIFF, MDW, LIP, ANEU, GFR #### [address] [address] Creatinine [Mass/Vol] 0.90 mg/dL Normal 0.70-1.30 [facility] ([place]) Comment on above: Performed By: #### C BC, CMP, ADIFF, MDW, LIP, ANEU, GFR #### [address] [address] Electrolyte Balance 15.0 mEq/L Normal 4.0-15.0 [facility] ([place]) Comment on above: Performed By: #### C BC, CMP, ADIFF, MDW, LIP, ANEU, GFR #### [address] [address] Glucose [Mass/Vol] 98 mg/dL Normal 70-105 [facility] ([place]) Comment on above: Performed By: #### C BC, CMP, ADIFF, MDW, LIP, ANEU, GFR #### [address] [address] Potassium [Moles/Vol] 4.6 mmol/L Normal 3.5-5.1 [facility] ([place]) Comment on above: Performed By: #### C BC, CMP, ADIFF, MDW, LIP, ANEU, GFR #### [address] [address] Sodium [Moles/Vol] 142 mmol/L Normal 136-145 [facility] ([place]) Comment on above: Performed By: #### C LANI, KLARISSA LOCKE MDW, LIP, ANEU, GFR #### [facility] [address] [place], [place] [address] Urea nitrogen [Mass/Vol] 13 mg/dL Normal 7-18 [facility] ([place] Comment on above: Performed By: #### C LANI, KLARISSA LOCKE MDW, LIP, ANEU, GFR #### [facility] [address] [place], [place] [address] CT ABD/PELVIS W/ IV CONTRAST ONLYon 05-17-2023 [...] 05/16/2023 10:45:51 PM Ordering Provider: TOI Nelson [facility] ([place]) .Auto Diffon 05-16-2023 Basophil, Absolute 0.1 10 3/mcL Normal 0.0-0.2 [facility] ([place]) Comment on above: Performed By: #### C BC, CMP, ADIFF, MDW, LIP, ANEU, GFR #### [address] [address] Basophils/100 WBC (Bld) 1.1 % Normal 0.0-2.5 A [facility] ([place]) Comment on above: Performed By: #### C BC, CMP, ADIFF, MDW, LIP, ANEU, GFR #### [address] [address] Eosinophil, Absolute 0.3 10 3/mcL Normal 0.0-0.4 [facility] ([place]) Comment on above: Performed By: #### C BC, CMP, ADIFF, MDW, LIP, ANEU, GFR #### [address] [address] Eosinophils/100 WBC (Bld) 1.9 % Normal 0.0-7.0 [facility] ([place] Comment on above: Performed By: #### C BC, CMP, ADIFF, MDW, LIP, ANEU, GFR #### [address] [address] Lymphocyte, Absolute 3.4 10 3/mcL Normal 0.8-3.9 [facility] ([place]) Comment on above: Performed By: #### C BC, CMP, ADIFF, MDW, LIP, ANEU, GFR #### [address] [address] Lymphocytes/100 WBC (Bld) 25.6 % Normal 10.0-50.0 [facility] ([place] Comment on above: Performed By: #### C BC, CMP, ADJAN, MDW, LIP, ANEU, GFR #### [address] [address] Monocyte, Absolute 0.8 10 3/mcL Normal 0.2-1.0 [facility] ([place]) Comment on above: Performed By: #### C BC, CMP, ADIFF, MDW, LIP, ANEU, GFR #### [address] [address] Monocytes/100 WBC (Bld) 6.0 % Normal 1.7-13.0 A [facility] ([place] Comment on above: Performed By: #### C BC, CMP, ADJAN, MDW, LIP, ANEU, GFR #### [address] [address] Neutrophils/100 WBC (Bld) 65.4 % Normal 37.0-80.0 [facility] ([place] Comment on above: Performed By: #### C BC, CMP, KLARISSA, MDW, LIP, ANEU, GFR #### [address] [address] .GFRon 05-16-2023 GFR 98 ml/min/1.73sqm Normal [facility] ([place] Comment on above: Result Comment: GFR Population [...] CMP, KLARISSA, MDW, LIP, ANEU, GFR #### [address] [address] GFR Non- 81 ml/min/1.73sqm Normal [facility] ([place]) Comment on above: Result Comment: GFR Population [...] CORNELIA, KLARISSA, MDW, LIP, ANEU, GFR #### [address] [address] .MDWon 05-16-2023 Monocyte Distribution Width 17.52 Normal 0.00-20.00 [facility] ([place] Comment on above: Result Comment: For ED adult patients suspected of sepsis, MDW<=20.0 does not rule out sepsis or risk of sepsis Performed By: #### C LANI, CORNELIA, KLARISSA, MDW, LIP, ANEU, GFR #### [address] [address] .NEUABSon 05-16-2023 Neutrophil, Absolute 8.7 10 3/mcL High 2.9-6.2 [facility] ([place]) Comment on above: Performed By: #### C BC, CORNELIA, KLARISSA, MDW, LIP, ANEU, GFR #### [address] [address] CBCon 05-16-2023 Erythrocyte distribution width (RBC) [Ratio] 13.4 % Normal 11.5-14.5 [facility] ([place] Comment on above: Performed By: #### C BC, CMP, ADIFF, MDW, LIP, ANEU, GFR #### [address] [address] Hematocrit (Bld) [Volume fraction] 45.6 % Normal 42.0-52.0 [facility] ([place] Comment on above: Performed By: #### C BC, CMP, ADIFF, MDW, LIP, ANEU, GFR #### [address] [address] Hgb 15.6 G/dL Normal 14.0-18.0 [facility] ([place]) Comment on above: Performed By: #### C BC, CMP, ADIFF, MDW, LIP, ANEU, GFR #### [address] [address] MCH (RBC) [Entitic mass] 30.9 pg Normal 27.0-31.2 [facility] ([place] Comment on above: Performed By: #### C BC, CMP, ADIFF, MDW, LIP, ANEU, GFR #### [address] [address] MCHC 34.1 G/dL Normal 31.8-35.4 [facility] ([place]) Comment on above: Performed By: #### C BC, CMP, ADIFF, MDW, LIP, ANEU, GFR #### [address] [address] MCV (RBC) [Entitic vol] 90.6 fL Normal 80.0-94.0 [facility] ([place]) Comment on above: Performed By: #### C BC, CMP, ADIFF, MDW, LIP, ANEU, GFR #### [address] [address] Platelet 303 10 3/mcL Normal 130-400 [facility] ([place]) Comment on above: Performed By: #### C BC, CMP, ADIFF, MDW, LIP, ANEU, GFR #### [address] [address] Platelet mean volume (Bld) [Entitic vol] 7.3 fL Low 7.4-10.4 [facility] ([place]) Comment on above: Performed By: #### C BC, CMP, ADIFF, MDW, LIP, ANEU, GFR #### [address] [address] RBC 5.04 10 6/mcL Normal 4.04-6.13 [facility] ([place]) Comment on above: Performed By: #### C BC, CMP, ADIFF, MDW, LIP, ANEU, GFR #### [address] [address] WBC 13.3 10 3/mcL High 4.6-10.8 [facility] ([place]) Comment on above: Performed By: #### C BC, CMP, ADIFF, MDW, LIP, ANEU, GFR #### [address] [address] CMPon 05-16-2023 Albumin Level 3.4 G/dL Low 3.5-5.0 [facility] ([place]) Comment on above: Performed By: #### C BC, CMP, ADIFF, MDW, LIP, ANEU, GFR #### [address] [address] Albumin/Globulin [Mass ratio] 0.9 {ratio} Low 1.1-2.5 [facility] ([place] Comment on above: Performed By: #### C BC, CMP, ADIFF, MDW, LIP, ANEU, GFR #### [address] [address] ALP [Catalytic activity/Vol] 47 U/L Normal 40-135 [facility] ([place]) Comment on above: Performed By: #### C BC, CMP, ADIFF, MDW, LIP, ANEU, GFR #### [address] [address] ALT [Catalytic activity/Vol] 23 U/L Normal 16-63 [facility] ([place]) Comment on above: Performed By: #### C BC, CMP, ADIFF, MDW, LIP, ANEU, GFR #### [address] [address] AST [Catalytic activity/Vol] 21 U/L Normal 10-40 [facility] ([place]) Comment on above: Performed By: #### C BC, CORNELIA, ANURAG CYR, LIP, ANEU, GFR #### [address] [address] Bili Total 0.2 mg/dL Normal 0.2-1.0 [facility] ([place]) Comment on above: Result Comment: Use of this assay is not recommended for patients undergoing treatment with eltrombopag due to the potential for falsely elevated results. Performed By: #### C LANI, CORNELIA, KLARISSA, ANURAG, LIP, ANEU, GFR #### [address] [address] BUN/Creatinine Ratio 14 ratio Normal 7-27 [facility] ([place]) Comment on above: Performed By: #### C BC, CORNELIA, KLARISSA, ANURAG, LIP, ANEU, GFR #### [address] [address] Calcium [Mass/Vol] 9.3 mg/dL Normal 8.4-10.2 [facility] ([place]) Comment on above: Performed By: #### C LANI, CORNELIA, KLARISSA, ANURAG, LIP, ANEU, GFR #### [address] [address] Chloride [Moles/Vol] 96 mmol/L Low 98-107 [facility] ([place]) Comment on above: Performed By: #### C BC, CMP, KLARISSA, ANURAG, LIP, ANEU, GFR #### [address] [address] CO2 [Moles/Vol] 24 mmol/L Normal 22-29 [facility] ([place]) Comment on above: Performed By: #### C BC, CMP, KLARISSA, W, LIP, ANEU, GFR #### [address] [address] Creatinine [Mass/Vol] 1.00 mg/dL Normal 0.70-1.30 [facility] ([place]) Comment on above: Performed By: #### C BC, CMP, ADIFF, MDW, LIP, ANEU, GFR #### [address] [address] Electrolyte Balance 6.0 mEq/L Normal 4.0-15.0 [facility] ([place]) Comment on above: Performed By: #### C BC, CMP, ADIFF, MDW, LIP, ANEU, GFR #### [address] [address] Globulin 3.8 G/dL Normal [facility] ([place]) Comment on above: Performed By: #### C BC, CMP, KLARISSA, MDW, LIP, ANEU, GFR #### [address] [address] Glucose [Mass/Vol] 121 mg/dL High 70-105 [facility] ([place]) Comment on above: Performed By: #### C BC, CMP, ADIFF, MDW, LIP, ANEU, GFR #### [address] [address] Potassium [Moles/Vol] 3.8 mmol/L Normal 3.5-5.1 [facility] ([place]) Comment on above: Performed By: #### C BC, CMP, ADIFF, MDW, LIP, ANEU, GFR #### [address] [address] Sodium [Moles/Vol] 126 mmol/L Low 136-145 [facility] ([place]) Comment on above: Performed By: #### C BC, CMP, ADIFF, MDW, LIP, ANEU, GFR #### [address] [address] Total Protein 7.2 G/dL Normal 6.4-8.2 [facility] ([place]) Comment on above: Performed By: #### C BC, CMP, ADIFF, MDW, LIP, ANEU, GFR #### [address] [address] Urea nitrogen [Mass/Vol] 14 mg/dL Normal 7-18 [facility] ([place] Comment on above: Performed By: #### C BC, CMP, ADIFF, MDW, LIP, ANEU, GFR #### [place] [address] [place], [place] [address] LABORATORYOrdered By: SYSTEM SYSTEM on 05-16-2023 Albumin [...] 05-16-2023 Lipase Level 20 U/L Normal 16-77 [facility] ([place]) Comment on above: Performed By: #### C BC, CMP, KLARISSA, W, LIP, ANEU, GFR #### [address] [address] UAon 05-16-2023 Color (U) Yellow Normal [facility] ([place] Comment on above: Performed By: #### U A #### [address] [address] Glucose (U) [Mass/Vol] Negative Normal Negative [facility] ([place]) Comment on above: Performed By: #### U A #### [address] [address] Ketones Ql (U) Negative Normal Negative [facility] ([place]) Comment on above: Performed By: #### U A #### [address] [address] UA Appear Clear Normal Clear [facility] ([place] Comment on above: Performed By: #### U A #### [address] [address] UA Blood Negative Normal Negative [facility] ([place] Comment on above: Performed By: #### U A #### [address] [address] UA Leuk Est Negative Normal Negative [facility] ([place]) Comment on above: Performed By: #### U A #### [address] [address] UA Nitrite Negative Normal Negative [facility] ([place] Comment on above: Performed By: #### U A #### [address] [address] UA pH 6.0 Normal 5.0 - 8.0 [facility] ([place] Comment on above: Performed By: #### U A #### [address] [address] UA Protein Negative Normal Negative [facility] ([place] Comment on above: Performed By: #### U A #### [address] [address] UA Spec Grav >=1.030 Abnormal 1.015-1.025 [facility] ([place]) Comment on above: Performed By: #### U A #### [address] [address] UA Specimen Type Clean Catch Normal [facility] ([place] Comment on above: Performed By: #### U A #### [address] [address] UA Urobilinogen 0.2 E.U./dL Normal 0.2-1.0 [facility] ([place] Comment on above: Performed By: #### U A #### [address] [address] Urobilinogen (U) [Mass/Vol] Negative Normal Negative [facility] ([place] Comment on above: Performed By: #### U A #### [address] [address] .Auto Diffon 02-12-2023 Basophil, Absolute 0.1 10 3/mcL Normal 0.0-0.2 [facility] ([place] Comment on above: Performed By: #### C BC, CMP, ADIFF, MDW, LIP, ANEU, GFR #### [address] [address] Basophils/100 WBC (Bld) 1.2 % Normal 0.0-2.5 A [facility] ([place] Comment on above: Performed By: #### C BC, CMP, ADIFF, MDW, LIP, ANEU, GFR #### [address] [address] Eosinophil, Absolute 0.1 10 3/mcL Normal 0.0-0.4 [facility] ([place]) Comment on above: Performed By: #### C BC, CMP, ADIFF, MDW, LIP, ANEU, GFR #### [address] [address] Eosinophils/100 WBC (Bld) 1.4 % Normal 0.0-7.0 [facility] ([place] Comment on above: Performed By: #### C BC, CMP, ADIFF, MDW, LIP, ANEU, GFR #### [address] [address] Lymphocyte, Absolute 3.3 10 3/mcL Normal 0.8-3.9 [facility] ([place]) Comment on above: Performed By: #### C BC, CMP, ADIFF, MDW, LIP, ANEU, GFR #### [address] [address] Lymphocytes/100 WBC (Bld) 35.7 % Normal 10.0-50.0 [facility] ([place] Comment on above: Performed By: #### C BC, CMP, ADIFF, MDW, LIP, ANEU, GFR #### [address] [address] Monocyte, Absolute 0.5 10 3/mcL Normal 0.2-1.0 [facility] ([place] Comment on above: Performed By: #### C BC, CMP, ADIFF, MDW, LIP, ANEU, GFR #### [address] [address] Monocytes/100 WBC (Bld) 5.1 % Normal 1.7-13.0 A [facility] ([place]) Comment on above: Performed By: #### C BC, CMP, ADIFF, MDW, LIP, ANEU, GFR #### [address] [address] Neutrophils/100 WBC (Bld) 56.6 % Normal 37.0-80.0 [facility] ([place] Comment on above: Performed By: #### C BC, CMP, ADIFF, MDW, LIP, ANEU, GFR #### [address] [address] .GFRon 02-12-2023 GFR Non- 121 ml/min/1.73sqm Normal [facility] ([place] Comment on above: Result Comment: GFR Population [...] CMP, ADIFF, MDW, LIP, ANEU, GFR #### [address] [address] GFR 146 ml/min/1.73sqm Normal [facility] ([place] Comment on above: Result Comment: GFR Population [...] CMP, ADIFF, MDW, LIP, ANEU, GFR #### [place] [address] .MDWon 02-12-2023 Monocyte Distribution Width 19.74 Normal 0.00-20.00 [facility] ([place] Comment on above: Result Comment: For ED adult patients suspected of sepsis, MDW<=20.0 does not rule out sepsis or risk of sepsis Performed By: #### C BC, CMP, ADJAN, MDW, LIP, ANEU, GFR #### [place] [address] .NEUABSon 02-12-2023 Neutrophil, Absolute 5.2 10 3/mcL Normal 2.9-6.2 [facility] ([place]) Comment on above: Performed By: #### C BC, CMP, ADIFF, MDW, LIP, ANEU, GFR #### [place] [address] CBCon 02-12-2023 Erythrocyte distribution width (RBC) [Ratio] 14.0 % Normal 11.5-14.5 [facility] ([place] Comment on above: Order Comment: clott ed Performed By: #### C BC, CMP, ADIFF, MDW, LIP, ANEU, GFR #### Brett [place] [address] [place], [place] [address] Hematocrit (Bld) [Volume fraction] 44.7 % Normal 42.0-52.0 [facility] ([place] Comment on above: Order Comment: clott ed Performed By: #### C BC, CORNELIA, KLARISSA, W, LIP, ANEU, GFR #### [address] [address] Hgb 15.5 G/dL Normal 14.0-18.0 [facility] ([place] Comment on above: Order Comment: clott ed Performed By: #### C BC, CMP, KLARISSA, W, LIP, ANEU, GFR #### [address] [address] MCH (RBC) [Entitic mass] 30.6 pg Normal 27.0-31.2 [facility] ([place] Comment on above: Order Comment: clott ed Performed By: #### C LANI, CORNELIA, KLARISSA, W, LIP, ANEU, GFR #### [address] [address] MCHC 34.6 G/dL Normal 31.8-35.4 [facility] ([place] Comment on above: Order Comment: clott ed Performed By: #### C BC, CORNELIA, KLARISSA, W, LIP, ANEU, GFR #### [address] [address] MCV (RBC) [Entitic vol] 88.4 fL Normal 80.0-94.0 [facility] ([place]) Comment on above: Order Comment: clott ed Performed By: #### C BC, CMP, KLARISSA, MDW, LIP, ANEU, GFR #### [address] [address] Platelet 271 10 3/mcL Normal 130-400 [facility] ([place]) Comment on above: Order Comment: clott ed Performed By: #### C BC, CMP, KLARISSA, W, LIP, ANEU, GFR #### [address] [address] Platelet mean volume (Bld) [Entitic vol] 7.2 fL Low 7.4-10.4 [facility] ([place]) Comment on above: Order Comment: clott ed Performed By: #### C BC, CMP, KLARISSA, MDW, LIP, ANEU, GFR #### [address] [address] RBC 5.06 10 6/mcL Normal 4.04-6.13 [facility] ([place]) Comment on above: Order Comment: clott ed Performed By: #### C BC, CMP, ADJAN, MDW, LIP, ANEU, GFR #### [address] [address] WBC 9.3 10 3/mcL Normal 4.6-10.8 [facility] ([place]) Comment on above: Order Comment: clott ed Performed By: #### C BC, CMP, KLARISSA, MDW, LIP, ANEU, GFR #### [address] [address] CMPon 02-12-2023 Albumin Level 3.2 G/dL Low 3.5-5.0 [facility] ([place]) Comment on above: Performed By: #### C BC, CMP, KLARISSA, MDW, LIP, ANEU, GFR #### [address] [address] Albumin/Globulin [Mass ratio] 0.8 {ratio} Low 1.1-2.5 [facility] ([place] Comment on above: Performed By: #### C BC, CMP, KLARISSA, MDW, LIP, ANEU, GFR #### [address] [address] ALP [Catalytic activity/Vol] 40 U/L Normal 40-135 [facility] ([place] Comment on above: Performed By: #### C BC, CMP, KLARISSA, MDW, LIP, ANEU, GFR #### [address] [address] ALT [Catalytic activity/Vol] 25 U/L Normal 16-63 [facility] ([place] Comment on above: Performed By: #### C BC, CMP, KLARISSA, MDW, LIP, ANEU, GFR #### [address] [address] AST [Catalytic activity/Vol] 32 U/L Normal 10-40 [facility] ([place] Comment on above: Performed By: #### C BC, CMP, ADJAN, MDW, LIP, ANEU, GFR #### [address] [address] Bili Total 0.3 mg/dL Normal 0.2-1.0 [facility] ([place] Comment on above: Result Comment: Use of this assay is not recommended for patients undergoing treatment with eltrombopag due to the potential for falsely elevated results. Performed By: #### C BC, CORNELIA, KLARISSA, MDW, LIP, ANEU, GFR #### [address] [address] BUN/Creatinine Ratio 13 ratio Normal 7-27 [facility] ([place] Comment on above: Performed By: #### C BC, CMP, KLARISSA, MDW, LIP, ANEU, GFR #### [address] [address] Calcium [Mass/Vol] 8.2 mg/dL Low 8.4-10.2 [facility] ([place] Comment on above: Performed By: #### C BC, CMP, KLARISSA, MDW, LIP, ANEU, GFR #### [address] [address] Chloride [Moles/Vol] 102 mmol/L Normal 98-107 [facility] ([place] Comment on above: Performed By: #### C BC, CMP, ADJAN, MDW, LIP, ANEU, GFR #### [address] [address] CO2 [Moles/Vol] 26 mmol/L Normal 22-29 [facility] ([place] Comment on above: Performed By: #### C BC, CMP, ADJAN, MDW, LIP, ANEU, GFR #### [address] [address] Creatinine [Mass/Vol] 0.71 mg/dL Normal 0.70-1.30 [facility] ([place]) Comment on above: Performed By: #### C BC, CMP, KLARISSA, MDW, LIP, ANEU, GFR #### [address] [address] Electrolyte Balance 9.0 mEq/L Normal 4.0-15.0 [facility] ([place]) Comment on above: Performed By: #### C BC, CMP, ADIFF, MDW, LIP, ANEU, GFR #### [address] [address] Globulin 3.9 G/dL Normal [facility] ([place] Comment on above: Performed By: #### C BC, CMP, KLARISSA, MDW, LIP, ANEU, GFR #### [address] [address] Glucose [Mass/Vol] 118 mg/dL High 70-105 [facility] ([place] Comment on above: Performed By: #### C BC, CMP, ADIFF, MDW, LIP, ANEU, GFR #### [address] [address] Potassium [Moles/Vol] 4.9 mmol/L Normal 3.5-5.1 [facility] ([place]) Comment on above: Performed By: #### C BC, CMP, ADIFF, MDW, LIP, ANEU, GFR #### [address] [address] Sodium [Moles/Vol] 137 mmol/L Normal 136-145 [facility] ([place] Comment on above: Performed By: #### C BC, CMP, ADIFF, MDW, LIP, ANEU, GFR #### [address] [address] Total Protein 7.1 G/dL Normal 6.4-8.2 [facility] ([place]) Comment on above: Performed By: #### C BC, CMP, ADIFF, MDW, LIP, ANEU, GFR #### [address] [address] Urea nitrogen [Mass/Vol] 9 mg/dL Normal 7-18 [facility] ([place] Comment on above: Performed By: #### C BC, CMP, KLARISSA, W, LIP, ANEU, GFR #### Brett [place] [address] [place], [place] [address] CT ABD/PELVIS W/ IV CONTRAST ONLYon 02-12-2023 [...] 02/12/2023 8:10:54 PM Ordering Provider: WOODROW MCALLISTER [facility] ([place]) LABORATORYOrdered By: SYSTEM SYSTEM on 02-12-2023 Albumin [...] 02-12-2023 Lipase Level 39 U/L Normal 16-77 [facility] ([place]) Comment on above: Performed By: #### C BC, CORNELIA, KLARISSA, ANURAG, LIP, ANEU, GFR #### Brett [address] [address] TROPHSon 02-12-2023 Troponin I High Sensitivity 4.0 ng/L Normal 0.0-76.2 [facility] ([place] Comment on above: Performed By: #### C LANI, CORNELIA, KLARISSA, ANURAG, LIP, ANEU, GFR #### Brett [place] [id number] [place], [place] [address] UAon 02-12-2023 Color (U) Yellow Normal [facility] ([place] Comment on above: Performed By: #### U A #### Brett [address] [place], [place] [address] Glucose (U) [Mass/Vol] Negative Normal Negative [facility] ([place]) Comment on above: Performed By: #### U A #### Brett [address] [place], [place] [address] Ketones Ql (U) Negative Normal Negative [facility] ([place]) Comment on above: Performed By: #### U A #### Brett [address] [place], [place] [address] UA Appear Clear Normal Clear [facility] ([place] Comment on above: Performed By: #### U A #### Brett [address] [place], [place] [address] UA Blood Negative Normal Negative [facility] ([place] Comment on above: Performed By: #### U A #### Brett [address] [place], [place] [address] UA Leuk Est Negative Normal Negative [facility] ([place] Comment on above: Performed By: #### U A #### Brett [address] [place], [place] [address] UA Nitrite Negative Normal Negative [facility] ([place] Comment on above: Performed By: #### U A #### Brett [address] [place], [place] [address] UA pH 7.0 Normal 5.0 - 8.0 [facility] ([place] Comment on above: Performed By: #### U A #### [address] [place], [place] [address] UA Protein Negative Normal Negative [facility] ([place] Comment on above: Performed By: #### U A #### Brett [address] [place], [place] [address] UA Spec Grav 1.015 Normal 1.015-1.025 [facility] ([place]) Comment on above: Performed By: #### U A #### [address] [place], [place] [address] UA Specimen Type Clean Catch Normal [facility] ([place]) Comment on above: Performed By: #### U A #### Brett [address] [place], [place] [address] UA Urobilinogen 0.2 E.U./dL Normal 0.2-1.0 [facility] ([place] Comment on above: Performed By: #### U A #### Brett [address] [place], [place] [address] Urobilinogen (U) [Mass/Vol] Negative Normal Negative [facility] ([place] Comment on above: Performed By: #### U A #### Brett [address] [place], [place] [address] .Auto Diffon 10-20-2022 Basophil, Absolute 0.1 10 3/mcL Normal 0.0-0.2 [facility] ([place] Comment on above: Performed By: #### C BC, CMP, ADIFF, MDW, LIP, ANEU, GFR #### Brett [address] [address] Basophils/100 WBC (Bld) 1.1 % Normal 0.0-2.5 A [facility], 1928–[facility] ([place]) Comment on above: Performed By: #### C BC, CMP, ADIFF, MDW, LIP, ANEU, GFR #### [address] [address] Eosinophil, Absolute 0.1 10 3/mcL Normal 0.0-0.4 [facility] ([place]) Comment on above: Performed By: #### C BC, CMP, ADIFF, MDW, LIP, ANEU, GFR #### [address] [address] Eosinophils/100 WBC (Bld) 1.7 % Normal 0.0-7.0 [facility] ([place]) Comment on above: Performed By: #### C BC, CMP, ADIFF, MDW, LIP, ANEU, GFR #### [address] [address] Lymphocyte, Absolute 2.3 10 3/mcL Normal 0.8-3.9 [facility] ([place]) Comment on above: Performed By: #### C BC, CMP, ADIFF, MDW, LIP, ANEU, GFR #### [address] [address] Lymphocytes/100 WBC (Bld) 26.4 % Normal 10.0-50.0 [facility] ([place] Comment on above: Performed By: #### C BC, CMP, ADIFF, MDW, LIP, ANEU, GFR #### [address] [address] Monocyte, Absolute 0.6 10 3/mcL Normal 0.2-1.0 [facility] ([place]) Comment on above: Performed By: #### C BC, CMP, ADIFF, MDW, LIP, ANEU, GFR #### [address] [address] Monocytes/100 WBC (Bld) 6.9 % Normal 1.7-13.0 [facility] ([place]) Comment on above: Performed By: #### C BC, CMP, ADIFF, MDW, LIP, ANEU, GFR #### [address] [address] Neutrophils/100 WBC (Bld) 63.9 % Normal 37.0-80.0 [facility] ([place] Comment on above: Performed By: #### C LANI, KLARISSA LOCKE MDW, LIP, ANEU, GFR #### [address] [address] .GFRon 10-20-2022 GFR 100 ml/min/1.73sqm Normal [facility] ([place]) Comment on above: Result Comment: GFR Population [...] KLARISSA LOCKE MDW, LIP, ANEU, GFR #### [address] [address] GFR Non- 83 ml/min/1.73sqm Normal [facility] ([place]) Comment on above: Result Comment: GFR Population [...] CORNELIA, ANURAG CYR, LIP, ANEU, GFR #### [place] [id number] .MDWon 10-20-2022 Monocyte Distribution Width 16.96 Normal 0.00-20.00 [facility] ([place] Comment on above: Result Comment: For ED adult patients suspected of sepsis, MDW<=20.0 does not rule out sepsis or risk of sepsis Performed By: #### C BC, CMP, ADIFF, MDW, LIP, ANEU, GFR #### [place] [address] .NEUABSon 10-20-2022 Neutrophil, Absolute 5.5 10 3/mcL Normal 2.9-6.2 [facility] ([place]) Comment on above: Performed By: #### C BC, CMP, ADIFF, MDW, LIP, ANEU, GFR #### [place] [address] CBCon 10-20-2022 Erythrocyte distribution width (RBC) [Ratio] 12.9 % Normal 11.5-14.5 [facility] ([place] Comment on above: Performed By: #### C BC, CMP, ADIFF, MDW, LIP, ANEU, GFR #### [place] [address] Hematocrit (Bld) [Volume fraction] 41.4 % Low 42.0-52.0 [facility] ([place] Comment on above: Performed By: #### C BC, CMP, ADIFF, MDW, LIP, ANEU, GFR #### [place] [address] Hgb 14.1 G/dL Normal 14.0-18.0 [facility] ([place] Comment on above: Performed By: #### C BC, CMP, ADIFF, MDW, LIP, ANEU, GFR #### [place] [address] MCH (RBC) [Entitic mass] 30.4 pg Normal 27.0-31.2 [facility] ([place] Comment on above: Performed By: #### C BC, CMP, ADIFF, MDW, LIP, ANEU, GFR #### [address] [address] MCHC 34.0 G/dL Normal 31.8-35.4 [facility] ([place]) Comment on above: Performed By: #### C BC, CMP, ADIFF, MDW, LIP, ANEU, GFR #### [address] [address] MCV (RBC) [Entitic vol] 89.5 fL Normal 80.0-94.0 A [facility], [facility] ([place] Comment on above: Performed By: #### C BC, CMP, ADIFF, MDW, LIP, ANEU, GFR #### [address] [address] Platelet 288 10 3/mcL Normal 130-400 [facility] ([place]) Comment on above: Performed By: #### C BC, CMP, ADIFF, MDW, LIP, ANEU, GFR #### [address] [address] Platelet mean volume (Bld) [Entitic vol] 7.3 fL Low 7.4-10.4 [facility] ([place]) Comment on above: Performed By: #### C BC, CMP, KLARISSA, MDW, LIP, ANEU, GFR #### [address] [address] RBC 4.62 10 6/mcL Normal 4.04-6.13 [facility] ([place]) Comment on above: Performed By: #### C BC, CMP, XUIFF, MDW, LIP, ANEU, GFR #### [address] [address] WBC 8.6 10 3/mcL Normal 4.6-10.8 [facility] ([place]) Comment on above: Performed By: #### C BC, CMP, ADIFF, MDW, LIP, ANEU, GFR #### [address] [address] CMPon 10-20-2022 Albumin Level 3.4 G/dL Low 3.5-5.0 [facility] ([place]) Comment on above: Performed By: #### C BC, CMP, ADJAN, MDW, LIP, ANEU, GFR #### [address] [address] Albumin/Globulin [Mass ratio] 1.1 {ratio} Normal 1.1-2.5 [facility] ([place]) Comment on above: Performed By: #### C BC, CMP, ADJAN, MDW, LIP, ANEU, GFR #### [address] [address] ALP [Catalytic activity/Vol] 47 U/L Normal 40-135 [facility] ([place]) Comment on above: Performed By: #### C BC, CMP, ADIFF, MDW, LIP, ANEU, GFR #### [address] [address] ALT [Catalytic activity/Vol] 21 U/L Normal 16-63 [facility] ([place] Comment on above: Performed By: #### C BC, CMP, ADJAN, MDW, LIP, ANEU, GFR #### [address] [address] AST [Catalytic activity/Vol] 18 U/L Normal 10-40 [facility] ([place] Comment on above: Performed By: #### C BC, CMP, ADIFF, MDW, LIP, ANEU, GFR #### [address] [address] Bili Total 0.2 mg/dL Normal 0.2-1.0 [facility] ([place] Comment on above: Result Comment: Use of this assay is not recommended for patients undergoing treatment with eltrombopag due to the potential for falsely elevated results. Performed By: #### C BC, CMP, ADJAN, MDW, LIP, ANEU, GFR #### [address] [address] BUN/Creatinine Ratio 13 ratio Normal 7-27 [facility] ([place]) Comment on above: Performed By: #### C BC, CMP, ADIFF, MDW, LIP, ANEU, GFR #### [address] [address] Calcium [Mass/Vol] 8.8 mg/dL Normal 8.4-10.2 [facility] ([place]) Comment on above: Performed By: #### C BC, CMP, KLARISSA, MDW, LIP, ANEU, GFR #### [address] [address] Chloride [Moles/Vol] 105 mmol/L Normal 98-107 [facility] ([place]) Comment on above: Performed By: #### C BC, CMP, ADJAN, MDW, LIP, ANEU, GFR #### [address] [address] CO2 [Moles/Vol] 27 mmol/L Normal 22-29 [facility] ([place]) Comment on above: Performed By: #### C BC, CMP, KLARISSA, MDW, LIP, ANEU, GFR #### [address] [address] Creatinine [Mass/Vol] 0.99 mg/dL Normal 0.70-1.30 [facility] ([place]) Comment on above: Performed By: #### C BC, CMP, KLARISSA, W, LIP, ANEU, GFR #### [address] [address] Electrolyte Balance 9.0 mEq/L Normal 4.0-15.0 [facility] ([place]) Comment on above: Performed By: #### C BC, CMP, KLARISSA, MDW, LIP, ANEU, GFR #### [address] [address] Globulin 3.2 G/dL Normal [facility] ([place]) Comment on above: Performed By: #### C BC, CMP, KLARISSA, W, LIP, ANEU, GFR #### [address] [address] Glucose [Mass/Vol] 109 mg/dL High 70-105 [facility] ([place]) Comment on above: Performed By: #### C BC, CMP, KLARISSA, MDW, LIP, ANEU, GFR #### [address] [address] Potassium [Moles/Vol] 3.9 mmol/L Normal 3.5-5.1 [facility] ([place]) Comment on above: Performed By: #### C BC, CMP, ADIFF, MDW, LIP, ANEU, GFR #### [place] [address] [place], [place] [address] Sodium [Moles/Vol] 141 mmol/L Normal 136-145 [facility] ([place]) Comment on above: Performed By: #### C BC, CMP, ADIFF, MDW, LIP, ANEU, GFR #### [address] [address] Total Protein 6.6 G/dL Normal 6.4-8.2 [facility] ([place]) Comment on above: Performed By: #### C BC, CMP, ADIFF, MDW, LIP, ANEU, GFR #### [address] [address] Urea nitrogen [Mass/Vol] 13 mg/dL Normal 7-18 [facility] ([place]) Comment on above: Performed By: #### C BC, CMP, ADIFF, MDW, LIP, ANEU, GFR #### [address] [address] [address] ABD/PELVIS W/ IV CONTRAST ONLYon 10-20-2022 [...] Date: 10/20/2022 6:25:29 PM Ordering Provider: LEDY REESE Normal [facility]) LAC 10-20-2022 Lactic Acid Lvl 1.2 mmol/L Normal 0.4-2.0 [facility]) Comment on above: Performed By: #### C LANI, CORNELIA, KLARISSA, ANURAG, LIP, ANEU, GFR #### [place] [address] [place], [place] [address] LIPon 10-20-2022 Lipase Level 43 U/L Normal 16-77 [facility]) Comment on above: Performed By: #### C LANI, CORNELIA, KLARISSA, ANURAG, LIP, ANEU, GFR #### [facility] [address] [place], [place] [address] LABORATORYOrdered By: Usha Tenorio on 08-28-2022 Basophil, [...] Invalid Interpretation Code 12 - 53 U/L AH ADM SS Lymphocytes (Bld) [#/Vol] 2.4 103/mcL [...] 10.8 10^3/mcL AO Workflow SS LABORATORYOrdered By: [employer] on 07-15-2022 Calcium [Mass/Vol] 8.4 mg/dL [...] ADM SS LABORATORYOrdered By: Sara Echeverria on 01-12-2023 Appearance (U) Clear (06/27/22 11:48 PM) Invalid [...] [Moles/Vol] 6 mmol/L 3 - 13 mmol/L [facility] Calcium [Mass/Vol] 9.0 mg/dL 8.4 - 10. 4 mg/dL [facility] Chloride [Moles/Vol] 105 mmol/L 98 - 10 7 mmol/L [facility] CO2 [Moles/Vol] 26 mmol/L 22 - 30 mmol/L [facility] Creatinine [Mass/Vol] 0.71 mg/dL 0.66 - 1.25 mg/dL [facility] GFR/1.73 sq M.predicted MDRD (S/P/Bld) [Vol rate/Area] - PINF [facility] Comment on above: Calculation based on the Chronic Kidney Disease Epidemiology Collaboration (CKD-EPI) equation refit without adjustment for race Glucose [Mass/Vol] 100 mg/dL 70 - 100 mg/dL [facility] Interpretation and review of laboratory results Normal [facility] Potassium [Moles/Vol] 4.3 mmol/L 3.5 - 5.1 mmol/L [facility] Sodium [Moles/Vol] 137 mmol/L 135 - 145 mmol/L [facility] Urea nitrogen [Mass/Vol] 14 mg/dL 9 - 20 mg/dL [facility] CBC W Auto Differential pane l (Bld)Ordered By: Michael Biggs on 06-19-2022 Basophils (Bld) [#/Vol] 0.1 10*3/uL 0.0 - 0.2 10*3/uL [facility] Basophils/100 WBC (Bld) 1.3 % 0.0 - 2.0 % [facility] Eosinophils (Bld) [#/Vol] 0.2 10*3/uL 0.0 - 0.5 10*3/uL [facility] Eosinophils/100 WBC (Bld) 2.4 % 1.0 - 6.0 % [facility] Erythrocyte distribution width (RBC) [Ratio] 14.3 % 11.5 - 14.5 % [facility] Hematocrit (Bld) [Volume fraction] 42.3 % 40.0 - 52.0 % [facility] Hemoglobin (Bld) [Mass/Vol] 14.5 g/dL 13.0 - 18.0 g/dL [facility] Interpretation and review of laboratory results Abnormal [facility] Lymphocytes (Bld) [#/Vol] 2.9 10*3/uL 1.0 - 4.3 10*3/uL [facility] Lymphocytes/100 WBC (Bld) 31.3 % 20.0 - 40.0 % [facility] MCH (RBC) [Entitic mass] 30.7 pg 26.0 - 34.0 pg [facility] MCHC (RBC) [Mass/Vol] 34.2 % 32.0 - 36.0 % [facility] MCV (RBC) [Entitic vol] 90.0 fL 80.0 - 98.0 fL [facility] Monocytes (Bld) [#/Vol] 0.6 10*3/uL 0.0 - 0.8 10*3/uL [facility] Monocytes/100 WBC (Bld) 6.3 % 2.0 - 10.0 % [facility] Neutrophils (Bld) [#/Vol] 5.4 10*3/uL 1.8 - 7.0 10*3/uL [facility] Neutrophils/100 WBC (Bld) 58.7 % 40.0 - 80.0 % [facility] Nucleated RBC/100 WBC (Bld) [Ratio] 0.0 % [facility] Platelet mean volume (Bld) [Entitic vol] 7.0 fL Low 7.4 - 12.4 fL [facility] Platelets (Bld) [#/Vol] 296 10*3/uL 140 - 440 10*3/uL [facility] RBC (Bld) [#/Vol] 4.70 10*6/uL 4.40 - 5.9 0 10*6/uL [facility] WBC (Bld) [#/Vol] 9.2 10*3/uL 3.6 - 10.7 10*3/uL [facility] - Drug toxicology on 06-19-2022 carBAMazepine [Mass/Vol] 14.5 ug/mL High 4.0 - 12.0 ug/mL [facility] No Panel Informationon 06-19 Interpretation and review of laboratory results Abnormal [facility] EMERGENCY REPORTon 2 EMERGENCY REPORT [facility] EMERGENCY ROOM REPORT NAME ACCOUNT SEX AGE ADMIT DISCHARGE PT MED. 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 He works at an [employer] business. He has done that for sometime. [...] sinus mechanism without any evidence of acute NE or ischemia. Rate was 111. Emergency room [...] Patrick Vigil DO 05/23/22 07:02 JOB #: [id number] Transcribed By: am 05/23/22 13:53 Electronically signed by: E-SIGN PATRICK VIGIL DO 06/12/22 05:26 Page 2 of 2 PATRICK KOROMA Emergency Room Report A Normal [facility] CT ABDOMEN PELVIS WITH IV CO [...] thickening. Please correlate with urinalysis for infection. [facility] Workstation ID: [id number] Dictated by: ROSAURA ROBLES on FriJun 10, 2022 2:32:31 AM EST Transcribed by: CHARLIE JIMENEZ on FriJun 10, 2022 2:35:27 AM EST Finalized by: ROSAURA ROBLES on FriJun 10, 2022 2:46:42 AM EST Normal [facility] Comment on above: Order Comment: Injur [...] origins. 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 No large vessel occlusion is seen. 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 OTHER: No pathologic intracranial enhancement is seen. IMPRESSION: 1. No acute intracranial abnormality. No hemorrhage or mass effect. 2. Intracranial extracranial vessels demonstrate no stenosis, thrombus, dissection, aneurysm, or large vessel occlusion. 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 3. Acute on chronic haas sinusitis in [...] FriJun 06, 2022 12:50:41 AM EST Normal [facility] Comment on above: Order Comment: Injur [...] CRP 2.80 mg/dl High 0.00 - 0.90 [facility] Comment on above: Performed By: #### 2 [id number] #### [facility],[address] [place] [address] CBC + DIFFon 05-23-2022 Baso # 0.10 x10EE3/UL Normal 0.00 - 0.10 [facility] Comment on above: Performed By: #### 2 01967 #### [facility],[address] [place] [address] Basophils/100 WBC (Bld) 1.1 % Normal 0.0 - 2.0 [facility] Comment on above: Performed By: #### 2 35760 #### [facility],[address] [place] [address] CBC + DIFF Normal [facility] Comment on above: Result Comment: CBC- COMPLETE BLOOD COUNT Performed By: #### 2 44141 #### [facility],[address] [place] [address] EO # 0.20 x10EE3/UL Normal 0.00 - 0.50 [facility] Comment on above: Performed By: #### 2 39429 #### [facility],[address] [place] [address] Eosinophils/100 WBC (Bld) 1.2 % Normal 0.0 - 7.0 [facility] Comment on above: Performed By: #### 2 75208 #### [facility],[address] [place] [address] Erythrocyte distribution width (RBC) [Ratio] 13.4 % Normal 12.0 - 15.6 [facility] Comment on above: Performed By: #### 2 43000 #### [facility],[address] [place] [address] Hematocrit (Bld) [Volume fraction] 44.7 % Normal 40.0 - 52.0 [facility] Comment on above: Performed By: #### 2 57407 #### [facility],[address] [place] [address] Hemoglobin (Bld) [Mass/Vol] 15.0 g/dL Normal 13.0 - 17.5 [facility] Comment on above: Performed By: #### 2 97886 #### [facility],[address] [place] [address] Lymph # 2.80 x10EE3/UL Normal 0.80 - 2.80 [facility] Comment on above: Performed By: #### 2 70588 #### [facility],[address] [place] [address] Lymphocytes/100 WBC (Bld) 19.8 % Low 20.0 - 45.0 [facility] Comment on above: Performed By: #### 2 93253 #### [facility],[address] [place] [address] MANUAL DIFF N/A Normal [facility] Comment on above: Performed By: #### 2 53507 #### [facility],[address] [place], [place] [id number] MCH (RBC) [Entitic mass] 30 pg Normal 27 - 33 [facility] Comment on above: Performed By: #### 2 74853 #### [facility],[address] [place] [place] [address] MCHC 34 X10 3 Normal 32 - 36 [facility] Comment on above: Performed By: #### 2 47577 #### [facility],[address] [place] [address] MCV (RBC) [Entitic vol] 90 fL Normal 81 - 98 [facility] Comment on above: Performed By: #### 2 33608 #### [facility],[address] [place] [address] [place]house # 1.00 x10EE3/UL Normal 0.20 - 1.00 [facility] Comment on above: Performed By: #### 2 87432 #### [facility],[address] [place] [address] MONOS % 6.8 % Normal 0.0 - 10.0 [facility] Comment on above: Performed By: #### 2 70333 #### [facility],[address] [place] [address] Morphology Alonso (Bld) [Interp] N/A Normal [facility] Comment on above: Result Comment: {CD] Performed By: #### 2 67275 #### [facility],[address] [place] [address] Neut # 10.00 x10EE3/UL High 1.50 - 7.10 [facility] Comment on above: Performed By: #### 2 74091 #### [facility],[address] [place] [address] Neutrophils/100 WBC (Bld) 71.1 % Normal 46.0 - 76.0 [facility] Comment on above: Performed By: #### 2 59580 #### [facility],[address] [place] [address] PLATELET 313 x10EE3/UL Normal 150 - 450 [facility] Comment on above: Performed By: #### 2 16056 #### [facility],[address] [place] [address] Platelet mean volume (Bld) [Entitic vol] 7.7 fL Normal 6.4 - 10.5 [facility] Comment on above: Result Comment: AUTO MATED DIFFERENTIAL Performed By: #### 2 89523 #### [facility],[address] [place] [address] RBC 4.95 x 10EE6/UL Normal 4.50 - 6.00 [facility] Comment on above: Performed By: #### 2 20504 #### [facility],[address] [place] [address] WBC 14.0 x 10EE3/UL High 4.5 - 10.8 [facility] Comment on above: Performed By: #### 2 50207 #### [facility],[address] [place] [address] CMP with eGFRon 05-23-2022 AGE 42 years Normal [facility] Comment on above: Performed By: #### 2 11548 #### [facility],[address] [place] [address] Albumin [Mass/Vol] 3.5 g/dL Normal 3.4 - 5.0 [facility] Comment on above: Performed By: #### 2 30765 #### [facility],[address] [place] [address] Albumin/Globulin [Mass ratio] 0.9 {ratio} Normal 0.9 - 1.6 [facility] Comment on above: Performed By: #### 2 61100 #### [facility],[address] [place] [address] ALK PHOS 44 U/L Low 46 - 116 [facility] Comment on above: Performed By: #### 2 79886 #### [facility],[address] [place] [address] ALT [Catalytic activity/Vol] 21 U/L Normal 16 - 63 [facility] Comment on above: Performed By: #### 2 19735 #### [facility],[address] [place] [address] Anion gap [Moles/Vol] 10 mmol/L Normal 10 - 20 [facility] Comment on above: Performed By: #### 2 72610 #### [facility],[address] [place] [address] AST [Catalytic activity/Vol] 16 U/L Normal 15 - 37 [facility] Comment on above: Performed By: #### 2 26513 #### [facility],[address] [place] [address] B/C RATIO 11 ratio Normal 0 - 30 [facility] Comment on above: Performed By: #### 2 74850 #### [facility],[address] [place] [address] Bilirubin [Mass/Vol] 0.2 mg/dL Normal 0.2 - 1.0 [facility] Comment on above: Performed By: #### 2 50407 #### [facility],[address] [place] [address] Calcium [Mass/Vol] 9.0 mg/dL Normal 8.5 - 10.1 [facility] Comment on above: Performed By: #### 2 06845 #### [facility],[address] [place] [address] Chloride [Moles/Vol] 101 mmol/L Normal 98 - 107 [facility] Comment on above: Performed By: #### 2 70498 #### [facility],[address] [place] [address] CMP with eGFR Normal [facility] Comment on above: Result Comment: COMP REHENSIVE METABOLIC PANEL Performed By: #### 2 11633 #### [facility],[address] [place] [address] CO2 [Moles/Vol] 30.2 mmol/L Normal 21.0 - 32.0 [facility] Comment on above: Performed By: #### 2 09872 #### [facility],[address] [place] [address] Creatinine [Mass/Vol] 0.91 mg/dL Normal 0.70 - 1.30 [facility] Comment on above: Performed By: #### 2 36771 #### [facility],[address] [place] [address] GFR/1.73 sq M.predicted among non-blacks MDRD (S/P/Bld) [Vol rate/Area] mL/min/{1.73_m2} Normal 60 - 999 [facility] Comment on above: Performed By: #### 2 29789 #### [facility],[address] [place] [address] Result Comment: ACCO RDING TO THE NATIONAL KIDNEY DISEASE EDUCATION PROGRAM(NKDE), A NORMAL eGFR IS A VALUE GREATER THAN OR EQUAL TO 60 ML/MIN/1.73 SQ METERS. CHRONIC KIDNEY DISEASE: <60mL/MIN/1.73 SQ METERS KIDNEY FAILURE: <15mL/MIN/1.73 SQ METERS THIS TEST SHOULD ONLY BE USED FOR PATIENTS 18 YEARS OF AGE AND OLDER. Globulin (S) [Mass/Vol] 3.7 g/dL Normal 1.5 - 3.8 [facility] Comment on above: Performed By: #### 2 22795 #### [facility],[address] [place] [address] Glucose [Mass/Vol] 104 mg/dL Normal 74 - 106 [facility] Comment on above: Performed By: #### 2 47473 #### [facility],[address] [place] [address] Potassium [Moles/Vol] 3.8 mmol/L Normal 3.5 - 5.1 [facility] Comment on above: Performed By: #### 2 83133 #### [facility],[address] [place] [address] Protein [Mass/Vol] 7.2 g/dL Normal 6.4 - 8.2 [facility] Comment on above: Performed By: #### 2 [id number] #### [facility],[address] [place] [address] Sodium [Moles/Vol] 137 mmol/L Normal 136 - 145 [facility] Comment on above: Performed By: #### 2 74876 #### [facility],[address] [place], [place] [id number] Urea nitrogen [Mass/Vol] 10 mg/dL Normal 7 - 18 [facility] Comment on above: Performed By: #### 2 74509 #### [facility],[address] [place], [place] [id number] CT BRAIN W/O CONTRASTon 12-0 CT BRAIN W/O CONTRAST [place] [address] Patient: PATRICK KOROMA Phone#: : [phone] Age: 42 Gender: M Pt. Type: ER Account: [id number] Location: [facility] Ordering: DR. PATRICK VIGIL Exam Date: 05/22/2022/23:10 Family Phys: Charge Code: 779541 Physician: [place] Order #: [id number] Dose#: [id number] PROCEDURE: CT BRAIN WITHOUT CONTRAST COMPARISON: [facility], CT, BRAIN W/O CON, 12/03/2011, 2:09. INDICATIONS: [...] Waters MD on 05/23/2022 at 14:41 Normal [facility] SEDRATEon 05-23-2022 SEDRATE 13 mm/hr Normal 0 - 20 [facility] Comment on above: Performed By: #### 2 67332 #### [facility],[address] [place] [place] [address] TROPONIN I, HIGH SENSITIVITY on 05-23-2022 HS TROPONIN 4.4 pg/mL Normal 0.0 - 76.2 [facility] Comment on above: Performed By: #### 2 60183 #### [facility],[address] [place] [place] [address] XR SHOULDER RIGHT (MIN 2 VIE WS)on [...] Rosas Silva MD 04/25/22 Final result Normal [facility] Comment on above: Order Comment: Reaso n for exam:->ac joint deformity/pain No acute abnormality . [facility] EXAMINATION: THREE XRAY VIEWS OF THE RIGHT SHOULDER 04/25/2022 5:40 pm COMPARISON: None. HISTORY: ORDERING SYSTEM PROVIDED HISTORY: ac joint deformity/pain TECHNOLOGIST PROVIDED HISTORY: Reason for exam:->ac joint deformity/pain FINDINGS: Glenohumeral joint is normally aligned. No evidence of acute fracture or dislocation. No abnormal periarticular calcifications. The AC joint is unremarkable in appearance. Visualized lung is unremarkable. [facility] Rosas Silva MD - 04/25/2022 EXAMINATION: [...] lung is unremarkable. IMPRESSION: No acute abnormality. [employer] Phone: Radiology Study observation (narrative) RICKIE [email or web address] Phone: XR SHOULDER RIGHT (MIN 2 VIE WS)Ordered By: Rosas Silva on 04-25-2022 [employer] Phone: XR WRIST RIGHT (MIN 3 VIEWS) [...] Abdifatah Child DO 04/03/22 Final result Normal [facility] Comment on above: Order Comment: Reaso n for exam:->crush injury No acute osseous abnormality involving the right wrist. [facility] EXAMINATION: XRAY VIEWS OF THE RIGHT WRIST 04/03/2022 4:10 pm COMPARISON: None. HISTORY: ORDERING SYSTEM PROVIDED HISTORY: crush injury TECHNOLOGIST PROVIDED HISTORY: Reason for exam:->crush injury FINDINGS: No fracture or dislocation involving the right wrist. Normal carpal bone alignment. No radiopaque foreign body. [facility] Abdifatah Child DO - 04/03/2022 EXAMINATION: XRAY VIEWS OF THE RIGHT WRIST 04/03/2022 4:10 pm COMPARISON: None. HISTORY: ORDERING SYSTEM PROVIDED HISTORY: crush injury TECHNOLOGIST PROVIDED HISTORY: Reason for exam:->crush injury FINDINGS: No fracture or dislocation involving the right wrist. Normal carpal bone alignment. No radiopaque foreign body. IMPRESSION: No acute osseous abnormality involving the right wrist. RICKIE MATA [employer] Phone: Radiology Study observation (narrative) RICKIE CORTÉS [employer] Phone: XR WRIST RIGHT (MIN 3 VIEWS) Ordered By: Abdifatah Child on 04-03-2022 RICKIE MATA [employer] Phone: CT CERVICAL SPINE WO CONTRAS Ton 03-08-2022 Patient Name: PATRICK KOROMA Computed Tomography ACCESSION EXAM DATE/TIME PROCEDURE ORDERING PROVIDER [id number] 03/08/2022 01:[address] Spine Cervical w/o [id number] -DARRION, GILES Contrast CPT code 65181 Reason For Exam (CT Spine Cervical w/o [...] KEVIN Transcribed Date and Time: 03/08/2022 1:50 Shankar Mares MD - 03/08/2022 Patient Name: PATRICK KOROMA Computed Tomography ACCESSION EXAM DATE/TIME PROCEDURE ORDERING PROVIDER [id number] 03/08/2022 01:[address] Spine Cervical w/o [id number] -DARRION, GILES Contrast CPT code 89899 Reason For Exam (CT Spine Cervical w/o [...] WO CONTRASTon 2021 [facility]: [id number] ACCESSION EXAM DATE/TIME PROCEDURE ORDERING PROVIDER [id number] 03/08/2022 01:[address] Head or Brain w/o [id number] -DARRION, GILES Contrast CPT code 48824 Reason For Exam (CT Head or Brain [...] Tomography ACCESSION EXAM DATE/TIME PROCEDURE ORDERING PROVIDER [id number] 03/08/2022 01:[address] Head or Brain w/o [id number] -DARRION, GILES Contrast CPT code 57771 Reason For Exam (CT Head or Brain [...] KEVIN Transcribed Date and Time: 03/08/2022 1:48 [facility] Work Phone: CT HEAD WO CONTRASTOrdered B y: Shankar Haas on 03-08-2022 [facility] Work Phone: CT Head or Brain w/o Contras ton 03-08-2022 CT Head or Brain w/o Contrast Patient Name: PATRICK KOROMA Computed Tomography ACCESSION EXAM DATE/TIME PROCEDURE ORDERING PROVIDER [id number] 03/08/2022 01:[address] Head or Brain w/o [id number] -DARRION, GILES Contrast CPT code 88002 Reason For Exam (CT Head or Brain [...] Transcribed Date and Time: 03/08/2022 1:[address] [facility] CT Spine Cervical w/o Contra ston 03-08-2022 CT Spine Cervical w/o Contrast Patient [facility]: [id number] Computed Tomography ACCESSION EXAM DATE/TIME PROCEDURE ORDERING PROVIDER [id number] 03/08/2022 01:[address] Spine Cervical w/o [id number] -DARRION, GILES Contrast CPT code 35573 Reason For Exam (CT Spine Cervical w/o [...] Transcribed Date and Time: 03/08/2022 1:50 Normal [facility] ED Provider Noteon 2 ED Provider Note [facility]ENCY DEPART[facility] ENCOUNTER Pt Name: Patrick [...] - No data to display MDM . Patrikc Koroma 42 y.o. male. The patient was [...] plan and expressed understanding. I am the mental health clinician of record REVAL: Remained hemodynamically stable, neurovascular [...] Patient condition is good PATIENT REFERRED TO: [facility] [address] [place] [phone] Schedule an appointment as soon as possible for a visit in 1 week DISCHARGE MEDICATIONS: New Prescriptions No medications o (more content not included)... Normal [facility] No Panel Informationon 03-08 Radiology Study observation (narrative) [facility] Work Phone: Absolute lymphocyte counton 01-01-2022 Lymphocytes Auto (Unsp spec) [#/Vol] 2.19 10*3/uL 0.83-4.51 [facility] Work Phone: Basophil percentageon 2021 Basophils/100 WBC (Bld) 0.5 % 0-1 [facility] Work Phone: Bilirubin [Mass/Vol] 0.20 mg/dL 0.20-1.00 [facility] Work Phone: Comment on above: For patients on eltr ombopag therapy, use of Dimension [place] TBIL is not recommended. Chloride [Moles/Vol] 111 mmol/L 98-107 [facility] Work Phone: Eosinophils/100 WBC (Bld) 1.6 % 0-5 [facility] Work Phone: Glucose [Mass/Vol] 103 mg/dL 74-106 [facility] Work Phone: Comment on above: Fasting Glucose resu lt from 100 to 125 mg/dL suggests IMPAIRED HOMEOSTASIS per A.D.A. criteria. Neutrophils (Bld) [#/Vol] 7.1 10*3/uL 2.0-7.7 [facility] Work Phone: Neutrophils/100 WBC (Bld) 70.0 % 47-70 [facility] Work Phone: Potassium [Moles/Vol] 3.9 mmol/L 3.5-5.1 [facility] Work Phone: Protein [Mass/Vol] 7.1 g/dL 6.4-8.2 [facility] Work Phone: Sodium [Moles/Vol] 140 mmol/L 136-145 [facility] Work Phone: WBC (Bld) [#/Vol] 10.2 10*3/uL 4.4-11.0 [facility] Work Phone: Blood erythrocytes count (nu mber/volume)on 01-01-2022 RBC (Bld) [#/Vol] 4.65 10*6/uL 4.6-6.2 [facility] Work Phone: Blood hemoglobin measurement (mass/volume)on 01-01-2022 Hemoglobin (Bld) [Mass/Vol] 14.1 g/dL 13.0-16.5 [facility] Work Phone: Blood lymphocytes/100 leukoc yteson 01-01-2022 Lymphocytes/100 WBC (Bld) 21.6 % 19-41 [facility] Work Phone: Blood monocytes/100 leukocyt eson 01-01-2022 Monocytes/100 WBC (Bld) 5.8 % 0-10 [facility] Work Phone: Blood platelet mean volumeon 01-01-2022 Platelet mean volume (Bld) [Entitic vol] 9.2 fL 6.2-12.0 [facility] Work Phone: Determination of erythrocyte mean corpuscular volume (MCV)on 01-01-2022 MCV (RBC) [Entitic vol] 92.7 fL 80-94 [facility] Work Phone: Direct bilirubinon Bilirubin.direct [Mass/Vol] 0.09 mg/dL 0.00-0.30 [facility] Work Phone: Hematocrit Auto (Bld) [Volum e fraction]on 01-01-2022 Hematocrit (Bld) [Volume fraction] 43.1 % 40-54 [facility] Work Phone: INR in Blood by Coagulation assayon 01-01-2022 INR Coag (Bld) [Relative time] 0.9 {INR} [facility] Work Phone: Laboratory - Chemistry and C hemistry - challengeon 07-19-2022 ALP [Catalytic activity/Vol] 43 U/L 45-117 [facility] Work Phone: ALT [Catalytic activity/Vol] 27 U/L 16-61 [facility] Work Phone: CO2 [Moles/Vol] 25.0 mmol/L 21.0-32.0 [facility] Work Phone: Globulin (S) [Mass/Vol] 3.8 g/dL 2.2-4.2 [facility] Work Phone: Urea nitrogen/Creatinine [Mass ratio] 9.2 mg/mg 10-20 [facility] Work Phone: Laboratory - Coagulationon 0 01-01-2022 aPTT Coag (Bld) [Time] 25.8 s 24.1-36.[address] [facility] Work Phone: PT Coag (PPP) [Time] 11.9 s 11.7-14.9 [facility] Work Phone: Laboratory - Hematology and Cell countson 01-01-2022 Erythrocyte distribution width (RBC) [Entitic vol] 43.3 fL 35.1-43.9 [facility] Work Phone: Erythrocyte distribution width (RBC) [Ratio] 12.7 % 11.6-14.6 [facility] Work Phone: Immature granulocytes/100 WBC (Bld) 0.500 % 0.0-0.9 [facility] Work Phone: Comment on above: IG% - Immature Granu locytes (promyelocytes, myelocytes and metamyelocytes) > 1% indicates that a LEFT SHIFT is Present. MCH (RBC) [Entitic mass] 30.3 pg 27.0-32.0 [facility] Work Phone: Nucleated RBC/100 WBC (Bld) [Ratio] 0 % 0-5 [facility] Work Phone: MCHC Auto (RBC) [Mass/Vol]on 01-01-2022 MCHC (RBC) [Mass/Vol] 32.7 g/dL 32-36 [facility] Work Phone: No Panel Informationon 01-01 Estimated Creatinine Clearance Calc 125.00 ml/min [facility] Work Phone: Estimated GFR (MDRD) Amer 123 mL/min >60 [facility] Work Phone: Comment on above: GFR Calc Estimated GFR (MDRD) Non-Af Amer 101 mL/min >60 [facility] Work Phone: Comment on above: Non- GFR Calc Platelets bldon 01-01-2022 Platelets (Bld) [#/Vol] 328 10*3/uL 150-450 [facility] Work Phone: Serum or plasma albumin za urement (mass/volume)on 01-01-2022 Albumin [Mass/Vol] 3.3 g/dL 3.2-5.0 [facility] Work Phone: Serum or plasma calcium za urement (mass/volume)on 01-01-2022 Calcium [Mass/Vol] 9.1 mg/dL 8.5-10.1 [facility] Work Phone: Serum or plasma creatinine m easurement (mass/volume)on 01-01-2022 Creatinine [Mass/Vol] 0.87 mg/dL 0.70-1.30 [facility] Work Phone: Comment on above: The validity of the calculated GFR & GFRAA in patients over 70 years has not been determined. Clinical correlation is essential. Serum or plasma urea nitroge n measurement (mass/volume)on 01-01-2022 Urea nitrogen [Mass/Vol] 8 mg/dL 7-18 [facility] Work Phone: Thin prep Papanicolaou smear with manual screeningon 01-01-2022 Thin prep Papanicolaou smear with manual screening 22 U/L 15-37 [facility] Work Phone: Thin prep Papanicolaou smear with manual screening 4 5-15 [facility] Work Phone: LABORATORYOrdered By: Sara Echeverria [...] 11-15 Calcium [Mass/Vol] 8.8 mg/dL Normal 8.4-10.4 [facility] Comment on above: Performed By: #### L ACT3, MG3, BMP3, HEMDF #### [place] [address] [place] [address] Glucose [Mass/Vol] 99 mg/dL Normal 70-100 [facility] Comment on above: Performed By: #### L ACT3, MG3, BMP3, HEMDF #### [place] [address] [place] [address] Anion gap [Moles/Vol] 6 mmol/L Normal 3-13 [facility] Comment on above: Performed By: #### L ACT3, MG3, BMP3, HEMDF #### [facility] [address] [place] [address] CO2 [Moles/Vol] 27 mmol/L Normal 22-30 [facility] Comment on above: Performed By: #### L ACT3, MG3, BMP3, HEMDF #### [facility] [address] [place] [address] Creatinine [Mass/Vol] 0.69 mg/dL Normal 0.52-1.25 [facility] Comment on above: Performed By: #### L ACT3, MG3, BMP3, HEMDF #### [place] [address] [place] [address] eGFR OTHER > 90.0 Normal >60 [facility] Comment on above: Result Comment: KDIG O [...] #### L ACT3, MG3, BMP3, HEMDF #### [facility] [address] [place] [address] GFR/1.73 sq M.predicted among blacks MDRD (S/P/Bld) [Vol rate/Area] mL/min/{1.73_m2} Normal >60 [facility] Comment on above: Performed By: #### L ACT3, MG3, BMP3, HEMDF #### [facility] [address] [place] [address] Urea nitrogen [Mass/Vol] 5 mg/dL Low 7-17 [facility] Comment on above: Performed By: #### L ACT3, MG3, BMP3, HEMDF #### [facility] [address] [place] [address] Chloride [Moles/Vol] 105 mmol/L Normal 98-107 [facility] Comment on above: Performed By: #### L ACT3, MG3, BMP3, HEMDF #### [facility] [address] [place] [address] Potassium [Moles/Vol] 3.8 mmol/L Normal 3.5-5.1 [facility] Comment on above: Performed By: #### L ACT3, MG3, BMP3, HEMDF #### [facility] [address] [place] [address] Sodium [Moles/Vol] 138 mmol/L Normal 135-145 [facility] Comment on above: Performed By: #### L ACT3, MG3, BMP3, HEMDF #### [facility] [address] [place] [address] CT Abdomen/Pelvis w/ Contras ton 12-05-2021 CT Abdomen/Pelvis w/ Contrast Patient Name: PATRICK KOROMA Computed Tomography ACCESSION EXAM DATE/TIME PROCEDURE ORDERING PROVIDER [id number] 12/05/2021 14:[address] Abdomen/Pelvis w/ [place] [id number] -JACQUIE, Contrast (IV Onl SUZIE CPT code 69523 Q9967 Reason For Exam (CT Abdomen/Pelvis w/ [...] Transcribed Date and Time: 12/05/2021 2:32 Normal [facility] Hemogram w/ Autodiffon 12-05 Abs Baso Cnt 0.1 10*3/uL Normal 0.0-0.2 [facility] Comment on above: Performed By: #### L ACT3, MG3, BMP3, HEMDF #### [address] [address] Abs Neutrophile Cnt 7.3 10*3/uL High 1.8-7.0 [facility] Comment on above: Performed By: #### L ACT3, MG3, BMP3, HEMDF #### [address] [address] Basophils/100 WBC (Bld) 0.7 % Normal 0.0-2.0 [facility] Comment on above: Performed By: #### L ACT3, MG3, BMP3, HEMDF #### [place] [address] [place] [address] Eosinophils (Bld) [#/Vol] 0.2 10*3/uL Normal 0.0-0.5 [facility] Comment on above: Performed By: #### L ACT3, MG3, BMP3, HEMDF #### [address] [address] Eosinophils/100 WBC (Bld) 2.0 % Normal 1.0-6.0 [facility] Comment on above: Performed By: #### L ACT3, MG3, BMP3, HEMDF #### [place] [address] [place] [address] Erythrocyte distribution width (RBC) [Ratio] 13.1 % Normal 11.5-14.5 [facility] Comment on above: Performed By: #### L ACT3, MG3, BMP3, HEMDF #### [address] [address] Granulocytes/100 WBC (Bld) 76.6 % Normal 40.0-80.0 [facility] Comment on above: Performed By: #### L ACT3, MG3, BMP3, HEMDF #### [address] [address] Hematocrit (Bld) [Volume fraction] 39.4 % Low 40.0-52.0 [facility] Comment on above: Performed By: #### L ACT3, MG3, BMP3, HEMDF #### [address] [address] Hemoglobin (Bld) [Mass/Vol] 13.6 g/dL Normal 13.0-18.0 [facility] Comment on above: Performed By: #### L ACT3, MG3, BMP3, HEMDF #### [address] [address] Lymphocytes (Bld) [#/Vol] 1.3 10*3/uL Normal 1.0-4.3 [facility] Comment on above: Performed By: #### L ACT3, MG3, BMP3, HEMDF #### [address] [address] Lymphocytes/100 WBC (Bld) 13.9 % Low 20.0-40.0 [facility] Comment on above: Performed By: #### L ACT3, MG3, BMP3, HEMDF #### [address] [address] MCH (RBC) [Entitic mass] 31.6 pg Normal 26.0-34.0 [facility] Comment on above: Performed By: #### L ACT3, MG3, BMP3, HEMDF #### [place] [address] [place] [address] MCHC 34.5 % Normal 32.0-36.0 [facility] Comment on above: Performed By: #### L ACT3, MG3, BMP3, HEMDF #### [place] [address] [place] [address] MCV (RBC) [Entitic vol] 91.7 fL Normal 80.0-98.0 [facility] Comment on above: Performed By: #### L ACT3, MG3, BMP3, HEMDF #### [place] [address] [place] [address] Monocytes (Bld) [#/Vol] 0.7 10*3/uL Normal 0.0-0.8 [facility] Comment on above: Performed By: #### L ACT3, MG3, BMP3, HEMDF #### [address] [address] Monocytes/100 WBC (Bld) 6.8 % Normal 2.0-10.0 [facility] Comment on above: Performed By: #### L ACT3, MG3, BMP3, HEMDF #### [place] [address] [place] [address] Platelet mean volume (Bld) [Entitic vol] 7.4 fL Normal 7.4-12.4 [facility] Comment on above: Result Comment: MPV is a calculated measurement using platelet volume ratio. Performed By: #### L ACT3, MG3, BMP3, HEMDF #### [place] [address] [place] [address] Platelets (Bld) [#/Vol] 389 10*3/uL Normal 140-440 [facility] Comment on above: Performed By: #### L ACT3, MG3, BMP3, HEMDF #### [address] [address] RBC (Bld) [#/Vol] 4.30 10*6/uL Low 4.40-5.90 [facility] Comment on above: Performed By: #### L ACT3, MG3, BMP3, HEMDF #### [place] [place] [address] WBC (Bld) [#/Vol] 9.6 10*3/uL Normal 3.6-10.7 [facility] Comment on above: Performed By: #### L ACT3, MG3, BMP3, HEMDF #### [place] [place] [address] Lactic Acidon 12-05-2021 Lactate [Moles/Vol] 1.1 mmol/L Normal 0.7-2.0 [facility] Comment on above: Performed By: #### L ACT3, MG3, BMP3, HEMDF #### [address] [address] Magnesiumon 12-05-2021 Magnesium [Mass/Vol] 2.2 mg/dL Normal 1.6-2.3 [facility] Comment on above: Performed By: #### L ACT3, MG3, BMP3, HEMDF #### [address] [address] LABORATORYOrdered By: Sara Echeverria on 11-30-2021 Basophil, [...] Summary Documentson 12-29-2016 Patient Summary Documents Normal [facility] Emergency Room Note on 12-24-2016 [facility] Note Normal [facility] Patient Summary Documentson 12-23-2016 Patient Summary Documents Normal [facility] XR WRIST COMPLETE RIGHTon XR WRIST COMPLETE [...] PM Sign Date: 12/23/2016 4:46:15 PM Normal [facility] Emergency Room Note on 12-16-2016 [facility] Note Normal [facility] Patient Summary Documentson 12-16-2016 Patient Summary Documents Normal [facility] Vital Signs Date Time Vital Sign Value Performing Clinician Berkley durham 01-26-2025 00:05-0400 Body temperature 98 [degF] Viola Starkey FACING MACHINE OPERATOR-C Work Phone: [facility] 01-26-2025 00:05-0400 Diastolic blood pressure 90 mm[Hg] Viola Starkey FACING MACHINE OPERATOR-C Work Phone: [facility] 01-26-2025 00:05-0400 Heart rate 78 /min Viola Starkey FACING MACHINE OPERATOR-C Work Phone: [facility] 01-26-2025 00:05-0400 Respiratory rate 16 /min Viola Starkey FACING MACHINE OPERATOR-C Work Phone: [facility] 01-26-2025 00:05-0400 SaO2% (BldA) [Mass fraction] 97 % Viola Starkey FACING MACHINE OPERATOR-C Work Phone: [facility] 01-26-2025 00:05-0400 Systolic blood pressure 140 mm[Hg] Viola Starkey FACING MACHINE OPERATOR-C Work Phone: [facility] 01-25-2025 22:23-0400 Body height 187.96 cm Viola Starkey FACING MACHINE OPERATOR-C Work Phone: [facility] 01-25-2025 22:23-0400 Body mass index (BMI) [Ratio] 43.9 kg/m2 Viola Starkey FACING MACHINE OPERATOR-C Work Phone: [facility] 01-25-2025 22:23-0400 Body weight 155.12 kg Viola Starkey FACING MACHINE OPERATOR-C Work Phone: [facility] 12-29-2024 22:56-0400 Body temperature 98.6 [degF] Viola Starkey FACING MACHINE OPERATOR-C Work Phone: [facility] 12-29-2024 22:56-0400 Diastolic blood pressure 94 mm[Hg] Viola Starkey FACING MACHINE OPERATOR-C Work Phone: [facility] 12-29-2024 22:56-0400 Heart rate 79 /min Viola Starkey FACING MACHINE OPERATOR-C Work Phone: [facility] 12-29-2024 22:56-0400 Respiratory rate 18 /min Viola Lalito FACING MACHINE OPERATOR-C Work Phone: [facility] 12-29-2024 22:56-0400 SaO2% (BldA) [Mass fraction] 98 % Viola Starkey FACING MACHINE OPERATOR-C Work Phone: [facility] 12-29-2024 22:56-0400 Systolic blood pressure 159 mm[Hg] Viola Starkey FACING MACHINE OPERATOR-C Work Phone: [facility] 12-29-2024 21:21-0400 Body height 187.96 cm Viola Strakey FACING MACHINE OPERATOR-C Work Phone: [facility] 12-29-2024 21:21-0400 Body mass index (BMI) [Ratio] 44.1 kg/m2 Viola Starkey FACING MACHINE OPERATOR-C Work Phone: [facility] 12-29-2024 21:21-0400 Body weight 156.03 kg Viola Starkey FACING MACHINE OPERATOR-C Work Phone: [facility] 12-08-2024 23:34-0400 Body height 187.[address] Cristian Tate Work Phone: [facility] 12-08-2024 23:34-0400 Body mass index (BMI) [Ratio] 44.6 kg/m2 Dr. Cristian Tate Work Phone: [facility] 12-08-2024 23:34-0400 Body temperature 98 [degF] Dr. Cristian Tate Work Phone: [facility] 12-08-2024 23:34-0400 Body weight 157.[address] Cristian Tate Work Phone: [facility] 12-08-2024 23:34-0400 Diastolic blood pressure 105 mm[Hg] Dr. Cristian Tate Work Phone: 7(900)408-576481 [place] [address] 12-08-2024 23:34-0400 Heart rate 104 /min Dr. Cristian Barrera DO Work Phone: 7(563)705-677581 [place] [address] 12-08-2024 23:34-0400 Respiratory rate 22 /min Dr. Cristian Barrera DO Work Phone: 9(174)928-373881 [place] [address] 12-08-2024 23:34-0400 SaO2% (BldA) [Mass fraction] 99 % Dr. Cristian Barrera DO Work Phone: 0(796)027-447081 [place] [address] 12-08-2024 23:34-0400 Systolic blood pressure 175 mm[Hg] Dr. Cristian Tate Work Phone: 8(137)288-745781 [place] [address] 12-07-2024 00:21-0400 Body temperature 96.9 [degF] Dr. Cristian Tate Work Phone: 2(373)900-497281 [place] [address] 12-07-2024 00:21-0400 Diastolic blood pressure 92 mm[Hg] Dr. Cristian Tate Work Phone: 7(412)194-712581 [place] [address] 12-07-2024 00:21-0400 Heart rate 103 /min Dr. Cristian Tate Work Phone: 7(571)649-586781 [place] [address] 12-07-2024 00:21-0400 Respiratory rate 16 /min Dr. Cristian Tate Work Phone: 3(937)[phone] [place] [address] 12-07-2024 00:21-0400 SaO2% (BldA) [Mass fraction] 99 % Dr. Cristian Tate Work Phone: 3(262)[phone] [place] [address] 12-07-2024 00:21-0400 Systolic blood pressure 137 mm[Hg] Dr. Cristian Tate Work Phone: 1(959)601-514381 [place] [address] 12-06-2024 23:19-0400 Body height 187.[address] Cristian Tate Work Phone: 6(757)566-098081 [place] [address] 12-06-2024 23:19-0400 Body mass index (BMI) [Ratio] 43.9 kg/m2 Dr. Cristian Tate Work Phone: 3(378)[phone] [place] [address] 12-06-2024 23:19-0400 Body weight 155.[address] Cristian Barrera DO Work Phone: 8(276)067-019362 [place] [address] 09-19-2024 22:25-0400 Body temperature 97 [degF] Dr. Cristian Tate Work Phone: 6(516)026-840262 [place] [address] 09-19-2024 22:25-0400 Diastolic blood pressure 93 mm[Hg] Dr. Cristian Barrera DO Work Phone: 1(166)[phone] [place] [address] 09-19-2024 22:25-0400 Heart rate 99 /min Dr. Cristian Barrera DO Work Phone: 9(586)782-513362 [place] [address] 09-19-2024 22:25-0400 Respiratory rate 16 /min Dr. Cristian Barrera DO Work Phone: 4(500)459-549481 [place] [address] 09-19-2024 22:25-0400 SaO2% (BldA) [Mass fraction] 97 % Dr. Cristian Tate Work Phone: 5(324)176-441762 [place] [address] 09-19-2024 22:25-0400 Systolic blood pressure 136 mm[Hg] Dr. Cristian Tate Work Phone: 0(677)157-057962 [place] [address] 09-19-2024 21:32-0400 Body mass index (BMI) [Ratio] 44.7 kg/m2 Dr. Cristian Tate Work Phone: 2(484)[phone] [place] [address] 09-19-2024 21:32-0400 Body weight 158.[address] Cristian Tate Work Phone: 4(337)[phone] [place] [address] 09-19-2024 21:16-0400 Body height 187.[address] Cristian Tate Work Phone: 1(910)[phone] [place] [address] 08-24-2024 22:40-0400 Body temperature 99.1 [degF] No Primary Care Physician [facility] 08-24-2024 22:40-0400 Diastolic blood pressure 70 mm[Hg] No Primary Care Physician [facility] 08-24-2024 22:40-0400 Heart rate 80 /min No Primary Care Physician [facility] 08-24-2024 22:40-0400 Respiratory rate 16 /min No Primary Care Physician [facility] 08-24-2024 22:40-0400 SaO2% (BldA) [Mass fraction] 100 % No Primary Care Physician [facility] 08-24-2024 22:40-0400 Systolic blood pressure 118 mm[Hg] No Primary Care Physician [facility] 08-24-2024 21:04-0400 Body height 187.96 cm No Primary Care Physician [facility] 08-24-2024 21:04-0400 Body mass index (BMI) [Ratio] 44.1 kg/m2 No Primary Care Physician [facility] 08-24-2024 21:04-0400 Body weight 155.99 kg No Primary Care Physician [facility] 08-13-2024 12:44-0500 Body height 188 cm Stephon Benavides MD Work Phone: [facility] 08-13-2024 12:44-0500 Body mass index (BMI) [Ratio] 43.78 kg/m2 Stephon Benavides MD Work Phone: [facility] 08-13-2024 12:44-0500 Body weight 154.68 kg Stephon Benavides MD Work Phone: [facility] 08-13-2024 12:44-0500 Diastolic blood pressure 95 mm[Hg] Stephon Benavides MD Work Phone: [facility] 08-13-2024 12:44-0500 Heart rate 125 /min Stephon Benavides MD Work Phone: [facility] 08-13-2024 12:44-0500 Respiratory rate 16 /min Stephon Benavides MD Work Phone: [facility] 08-13-2024 12:44-0500 Systolic blood pressure 132 mm[Hg] Stephon Benavides MD Work Phone: [facility] 06-29-2024 14:07-0500 Body height 188 cm Jonathan Gonzalez MD Work Phone: [facility] 06-29-2024 14:07-0500 Body mass index (BMI) [Ratio] 43.65 kg/m2 Jonathan Gonzalez MD Work Phone: [facility] 06-29-2024 14:07-0500 Body temperature 97.81 [degF] Jonathan Gonzalez MD Work Phone: [facility] 06-29-2024 14:07-0500 Body weight 154.22 kg Jonathan Gonzalez MD Work Phone: [facility] 06-29-2024 14:07-0500 Diastolic blood pressure 94 mm[Hg] Jonathan Gonzalez MD Work Phone: [facility] 06-29-2024 14:07-0500 Heart rate 91 /min Jonathan Gonzalez MD Work Phone: [facility] 06-29-2024 14:07-0500 Respiratory rate 18 /min Jonathan Gonzalez MD Work Phone: [facility] 06-29-2024 14:07-0500 SaO2% (BldA) [Mass fraction] 97 % Jonathan Gonzalez MD Work Phone: [facility] 06-29-2024 14:07-0500 Systolic blood pressure 141 mm[Hg] Jonathan Gonzalez MD Work Phone: [facility] 05-16-2024 21:44-0500 Body temperature 98.42 [degF] NIDAL CHOUJAA DO [facility] 05-16-2024 21:44-0500 Diastolic Blood Pressure Non-Invasive 95 mm[Hg] NIDAL CHOUJAA DO [facility] 05-16-2024 21:44-0500 Heart rate 96 /min NIDAL CHOUJAA DO [facility] 05-16-2024 21:44-0500 Respiratory rate 18 /min NIDAL CHOUJAA DO [facility] 05-16-2024 21:44-0500 Systolic Blood Pressure Non-Invasive 141 mm[Hg] RADHA YI DO [facility] 09-16-2023 11:05-0400 Body height 188 cm Pacc 6 Work Phone: [facility] 09-16-2023 11:05-0400 Body temperature 98.49 [degF] Pacc 6 Work Phone: [facility] 09-16-2023 11:05-0400 Body weight 162.8 kg Pacc 6 Work Phone: [facility] 09-16-2023 11:05-0400 Diastolic blood pressure 86 mm[Hg] Pacc 6 Work Phone: [facility] 09-16-2023 11:05-0400 Heart rate 101 /min Pacc 6 Work Phone: [facility] 09-16-2023 11:05-0400 SaO2% (BldA) [Mass fraction] 98 % Pacc 6 Work Phone: [facility] 09-16-2023 11:05-0400 Systolic blood pressure 143 mm[Hg] Pacc 6 Work Phone: [facility] 09-11-2023 18:11-0400 Body temperature 98.06 [degF] DAVONTE Segura [facility] 09-11-2023 18:11-0400 Diastolic Blood Pressure Non-Invasive 77 mm[Hg] DAVONTE ONEILL MD [facility] 09-11-2023 18:11-0400 Heart rate 98 /min DAVONTE Segura [facility] 09-11-2023 18:11-0400 Respiratory rate 20 /min DAVONTE Segura [facility] 09-11-2023 18:11-0400 Systolic Blood Pressure Non-Invasive 151 mm[Hg] DAVONTE ONEILL MD [facility] 08-27-2023 10:45-0400 Diastolic Blood Pressure Non-Invasive 90 mm[Hg] REYES TERESA DO [facility] 08-27-2023 10:45-0400 Heart rate 94 /min REYES TERESA DO [facility] 08-27-2023 10:45-0400 Respiratory rate 20 /min REYES TERESA DO [facility] 08-27-2023 10:45-0400 Systolic Blood Pressure Non-Invasive 123 mm[Hg] REYES TERESA DO [facility] 08-27-2023 10:35-0400 Diastolic Blood Pressure Non-Invasive 90 mm[Hg] REYES TERESA DO [facility] 08-27-2023 10:35-0400 Heart rate 98 /min REYES TERESA DO [facility] 08-27-2023 10:35-0400 Respiratory rate 15 /min REYES TERESA DO [facility] 08-27-2023 10:35-0400 Systolic Blood Pressure Non-Invasive 123 mm[Hg] REYES TERESA DO [facility] 08-27-2023 10:20-0400 Body temperature 97.7 [degF] REYES TERESA DO [facility] 08-27-2023 10:20-0400 Diastolic Blood Pressure Non-Invasive 68 mm[Hg] REYES TERESA DO [facility] 08-27-2023 10:20-0400 Heart rate 88 /min REYES TERESA DO [facility] 08-27-2023 10:20-0400 Respiratory rate 14 /min REYES TERESA DO [facility] 08-27-2023 10:20-0400 Systolic Blood Pressure Non-Invasive 113 mm[Hg] REYES TERESA DO [facility] 08-27-2023 10:15-0400 Heart rate 86 /min REYES TERESA DO [facility] 08-27-2023 10:15-0400 Respiratory Rate - Anes 13 br/min REYES TERESA DO [facility] 08-27-2023 10:10-0400 Heart rate 96 /min REYES TERESA DO [facility] 08-27-2023 10:10-0400 Respiratory Rate - Anes 15 br/min REYES TERESA DO [facility] 08-27-2023 10:05-0400 Heart rate 104 /min REYES TERESA DO [facility] 08-27-2023 10:05-0400 Respiratory Rate - Anes 30 br/min REYES TERESA DO [facility] 08-27-2023 09:46-0400 Body temperature 97.7 [degF] REYES TERESA DO [facility] 08-27-2023 09:40-0400 Body height 184.5 cm REYES TERESA DO [facility] 08-27-2023 09:40-0400 Body temperature 97.7 [degF] REYES MOORE DO [facility] 08-27-2023 09:40-0400 Body weight 143.1 kg REYES MOORE DO [facility] 08-27-2023 09:40-0400 Body weight 42.04 kg/m2 REYES MOORE DO [facility] 08-06-2023 09:01-0500 Body height 188 cm Kelley Meraz SMT MACHINE OPERATOR.IN CLASS SPECIAL EDUCATION TEACHER, DNP Work Phone: [facility] 08-06-2023 09:01-0500 Body weight 158.76 kg Kelley Meraz SMT MACHINE OPERATOR.IN CLASS SPECIAL EDUCATION TEACHER, DNP Work Phone: [facility] 08-06-2023 09:01-0500 Diastolic blood pressure 101 mm[Hg] Kelley Meraz SMT MACHINE OPERATOR.IN CLASS SPECIAL EDUCATION TEACHER, DNP Work Phone: [facility] 08-06-2023 09:01-0500 Heart rate 107 /min Kelley Meraz SMT MACHINE OPERATOR.IN CLASS SPECIAL EDUCATION TEACHER, DNP Work Phone: [facility] 08-06-2023 09:01-0500 SaO2% (BldA) [Mass fraction] 98 % Kelley Meraz SMT MACHINE OPERATOR.IN CLASS SPECIAL EDUCATION TEACHER, DNP Work Phone: [facility] 08-06-2023 09:01-0500 Systolic blood pressure 153 mm[Hg] Kelley Meraz SMT MACHINE OPERATOR.IN CLASS SPECIAL EDUCATION TEACHER, [facility] Work Phone: [facility] 07-04-2023 00:20-0500 Body temperature 98.1 [degF] No Primary Care Physician [facility] 07-04-2023 00:20-0500 Diastolic blood pressure 89 mm[Hg] No Primary Care Physician [facility] 07-04-2023 00:20-0500 Heart rate 98 /min No Primary Care Physician [facility] 07-04-2023 00:20-0500 Respiratory rate 16 /min No Primary Care Physician [facility] 07-04-2023 00:20-0500 SaO2% (BldA) [Mass fraction] 96 % No Primary Care Physician [facility] 07-04-2023 00:20-0500 Systolic blood pressure 143 mm[Hg] No Primary Care Physician [facility] 07-03-2023 22:57-0500 Body height 187.96 cm No Primary Care Physician [facility] 07-03-2023 22:57-0500 Body mass index (BMI) [Ratio] 45.6 kg/m2 No Primary Care Physician [facility] 07-03-2023 22:57-0500 Body weight 161.28 kg No Primary Care Physician [facility] 06-28-2023 16:27-0500 Diastolic Blood Pressure Non-Invasive 93 mm[Hg] DR LEDY REESE MD [facility] 06-28-2023 16:27-0500 Heart rate 92 /min DR LEDY REESE MD [facility] 06-28-2023 16:27-0500 Respiratory rate 18 /min DR LEDY REESE MD [facility] 06-28-2023 16:27-0500 Systolic Blood Pressure Non-Invasive 133 mm[Hg] DR LEDY REESE MD [facility] 06-28-2023 14:04-0500 Blood Pressure Cuff Size DR LEDY REESE MD [facility] 06-28-2023 14:04-[address] LEDY REESE MD [facility] 06-28-2023 14:04-[address] LEDY REESE MD [facility] 06-28-2023 14:04-0500 Body height [address] LEDY REESE MD [facility] 06-28-2023 14:04-0500 Body temperature 97.7 [degF] DR LEDY REESE MD [facility] 06-28-2023 14:04-0500 Body weight 136.[address] LEDY REESE MD [facility] 06-28-2023 14:04-0500 Diastolic Blood Pressure Non-Invasive 89 mm[Hg] DR LEDY REESE MD [facility] 06-28-2023 14:04-0500 Heart rate 108 /min DR LEDY REESE MD [facility] 06-28-2023 14:04-0500 Respiratory rate 22 /min DR LEDY REESE MD [facility] 06-28-2023 14:04-0500 Systolic Blood Pressure Non-Invasive 141 mm[Hg] DR LEDY REESE MD [facility] 06-12-2023 09:46-0500 Body mass index (BMI) [Ratio] 44.5 kg/m2 No Primary Care Physician [facility] 06-12-2023 09:46-0500 Body temperature 97.1 [degF] No Primary Care Physician [facility] 06-12-2023 09:46-0500 Body weight 157.39 kg No Primary Care Physician [facility] 06-12-2023 09:46-0500 Diastolic blood pressure 91 mm[Hg] No Primary Care Physician [facility] 06-12-2023 09:46-0500 Heart rate 79 /min No Primary Care Physician [facility] 06-12-2023 09:46-0500 Respiratory rate 18 /min No Primary Care Physician [facility] 06-12-2023 09:46-0500 SaO2% (BldA) [Mass fraction] 100 % No Primary Care Physician [facility] 06-12-2023 09:46-0500 Systolic blood pressure 130 mm[Hg] No Primary Care Physician [facility] 06-08-2023 19:34-0500 Diastolic Blood Pressure Non-Invasive 85 mm[Hg] DR PAUL DOBSON DO [facility] 06-08-2023 19:34-0500 Heart rate 87 /min DR PAUL DOBSON DO [facility] 06-08-2023 19:34-0500 Respiratory rate 18 /min DR PAUL DOBSON DO [facility] 06-08-2023 19:34-0500 Systolic Blood Pressure Non-Invasive 146 mm[Hg] DR PAUL DOBSON DO [facility] 06-08-2023 17:51-0500 Blood Pressure Cuff Size DR PAUL DOBSON DO [facility] 06-08-2023 17:51-[address] PAUL DOBSON DO [facility] 06-08-2023 17:51-[address] PAUL DOBSON DO [facility] 06-08-2023 17:51-0500 Body temperature 98.78 [degF] DR PAUL DOBSON DO [facility] 06-08-2023 17:51-0500 Diastolic Blood Pressure Non-Invasive 80 mm[Hg] DR PAUL DOBSON DO [facility] 06-08-2023 17:51-0500 Heart rate 96 /min DR PAUL DOBSON DO [facility] 06-08-2023 17:51-0500 Respiratory rate 18 /min DR PAUL DOBSON DO [facility] 06-08-2023 17:51-0500 Systolic Blood Pressure Non-Invasive 113 mm[Hg] DR PAUL DOBSON DO [facility] 06-01-2023 01:12-0500 Body height 185.42 cm [facility] 06-01-2023 01:12-0500 Body mass index (BMI) [Ratio] 46.3 kg/m2 [facility] 06-01-2023 01:12-0500 Body temperature 98.4 [degF] [facility] 06-01-2023 01:12-0500 Body weight 159.4 kg [facility] 06-01-2023 01:12-0500 Diastolic blood pressure 96 mm[Hg] [facility] 06-01-2023 01:12-0500 Heart rate 96 /min [facility] 06-01-2023 01:12-0500 Respiratory rate 20 /min [facility] 06-01-2023 01:12-0500 SaO2% (BldA) [Mass fraction] 99 % [facility] 06-01-2023 01:12-0500 Systolic blood pressure 157 mm[Hg] [facility] 05-16-2023 22:40-0500 Diastolic Blood Pressure Non-Invasive 80 mm[Hg] TOI REICHFIELD DO [facility] 05-16-2023 22:40-0500 Heart rate 94 /min TOI REICHFIELD DO [facility] 05-16-2023 22:40-0500 Respiratory rate 18 /min TOI REICHFIELD DO [facility] 05-16-2023 22:40-0500 Systolic Blood Pressure Non-Invasive 132 mm[Hg] TOI REICHFIELD DO [facility] 05-16-2023 21:30-0500 Heart rate 98 /min TOI REICHFIELD DO [facility] 05-16-2023 21:30-0500 Respiratory rate 16 /min TOI REICHFIELD DO [facility] 05-16-2023 21:20-0500 Reason For Taking VItal Signs TOI REICHFIELD DO [facility] 05-16-2023 20:06-0500 Body height 188 cm TOI REICHFIELD DO [facility] 05-16-2023 20:06-0500 Body temperature 98.42 [degF] TOI REICHFIELD DO [facility] 05-16-2023 20:06-0500 Body weight 134.1 kg TOI REICHFIELD DO [facility] 05-16-2023 20:06-0500 Diastolic Blood Pressure Non-Invasive 85 mm[Hg] TOI REICHFIELD DO [facility] 05-16-2023 20:06-0500 Heart rate 98 /min TOI REICHFIELD DO [facility] 05-16-2023 20:06-0500 Respiratory rate 18 /min TOI REICHFIELD DO [facility] 05-16-2023 20:06-0500 Systolic Blood Pressure Non-Invasive 138 mm[Hg] TOI REICHFIELD DO [facility] 02-12-2023 20:36-0400 Diastolic Blood Pressure Non-Invasive 90 1 TOI REICHFIELD DO [facility] 02-12-2023 20:36-0400 Heart rate 77 /min TOI REICHFIELD DO [facility] 02-12-2023 20:36-0400 Reason For Taking VItal Signs TOI REICHFIELD DO [facility] 02-12-2023 20:36-0400 Respiratory rate 20 /min TOI REICHFIELD DO [facility] 02-12-2023 20:36-0400 Systolic Blood Pressure Non-Invasive 130 1 TOI REICHFIELD DO [facility] 02-12-2023 19:10-0400 Diastolic Blood Pressure Non-Invasive 92 1 TOI REICHFIELD DO [facility] 02-12-2023 19:10-0400 Heart rate 75 /min TOI REICHFIELD DO [facility] 02-12-2023 19:10-0400 Reason For Taking VItal Signs TOI REICHFIELD DO [facility] 02-12-2023 19:10-0400 Respiratory rate 18 /min TOI REICHFIELD DO [facility] 02-12-2023 19:10-0400 Systolic Blood Pressure Non-Invasive 129 1 TOI REICHFIELD DO [facility] 02-12-2023 18:15-0400 Diastolic Blood Pressure Non-Invasive 88 1 TOI REICHFIELD DO [facility] 02-12-2023 18:15-0400 Heart rate 88 /min TOI REICHFIELD DO [facility] 02-12-2023 18:15-0400 Reason For Taking VItal Signs TOI REICHFIELD DO [facility] 02-12-2023 18:15-0400 Respiratory rate 20 /min TOI REICHFIELD DO [facility] 02-12-2023 18:15-0400 Systolic Blood Pressure Non-Invasive 137 1 TOI REICHFIELD DO [facility] 02-12-2023 17:24-0400 Body temperature 98.24 [degF] TOI REICHFIELD DO [facility] 02-12-2023 17:24-0400 Body weight 149.9 kg [facility] 02-12-2023 17:24-0400 Heart rate 100 /min [facility] 10-28-2022 11:57-0400 Blood Pressure Cuff Size ROSHNI SCHWARZENTRAUB PA-C [facility] 10-28-2022 11:57-0400 Blood Pressure Location ROSHNI SCHWARZENTRAUB PA-C [facility] 10-28-2022 11:57-0400 Blood Pressure Method ROSHNI SCHWARZENTRAUB PA-C [facility] 10-28-2022 11:57-0400 Body height 188 cm ROSHNI SCHWARZENTRA UB PA-C [facility] 10-28-2022 11:57-0400 Body temperature 97.88 [degF] ROSHNI SCHWARZENTRA UB PA-C [facility] 10-28-2022 11:57-0400 Body weight 134.1 kg ROSHNI SCHWARZENTRA UB PA-C [facility] 10-28-2022 11:57-0400 Body weight 37.94 kg/m2 ROSHNI SCHWARZENTRA UB PA-C [facility] 10-28-2022 11:57-0400 Diastolic Blood Pressure Non-Invasive 87 1 ROSHNI SCHWARZENTRAUB PA-C [facility] 10-28-2022 11:57-0400 Heart rate 111 /min ROSHNI CRISTIANEARZENTimecros UB PA-C [facility] 10-28-2022 11:57-0400 Respiratory rate 18 /min [facility] UB PA-C [facility] 10-28-2022 11:57-0400 Systolic Blood Pressure Non-Invasive 132 1 OVIEDO SCHWARZENTRAUB PA-C [facility] 10-28-2022 01:45-0400 Body temperature 98.96 [degF] YARA HENSON MD [facility] 10-28-2022 01:45-0400 Diastolic Blood Pressure Non-Invasive 96 1 YARA HENSON MD [facility] 10-28-2022 01:45-0400 Heart rate 98 /min YARA HENSON MD [facility] 10-28-2022 01:45-0400 Respiratory rate 20 /min YARA HENSON MD [facility] 10-28-2022 01:45-0400 Systolic Blood Pressure Non-Invasive 143 1 YARA HENSON MD [facility] 10-21-2022 08:44-0400 Blood Pressure Cuff Size AVANI KEMIERS SMT MACHINE OPERATOR-IN CLASS SPECIAL EDUCATION TEACHER [facility] 10-21-2022 08:44-0400 Blood Pressure Location AVANI KEMIERS SMT MACHINE OPERATOR-IN CLASS SPECIAL EDUCATION TEACHER [facility] 10-21-2022 08:44-0400 Blood Pressure Method AVANI KEMIERS SMT MACHINE OPERATOR-IN CLASS SPECIAL EDUCATION TEACHER [facility] 10-21-2022 08:44-0400 Body height 188 cm AVANI BATERS SMT MACHINE OPERATOR-IN CLASS SPECIAL EDUCATION TEACHER [facility] 10-21-2022 08:44-0400 Body temperature 98.42 [degF] AVANI CANTOR SMT MACHINE OPERATOR-IN CLASS SPECIAL EDUCATION TEACHER [facility] 10-21-2022 08:44-0400 Body weight 134.1 kg AVANI CANTOR SMT MACHINE OPERATOR-IN CLASS SPECIAL EDUCATION TEACHER [facility] 10-21-2022 08:44-0400 Body weight 37.94 kg/m2 AVANI CANTOR SMT MACHINE OPERATOR-IN CLASS SPECIAL EDUCATION TEACHER [facility] 10-21-2022 08:44-0400 Diastolic Blood Pressure Non-Invasive 93 1 AVANI CANTOR SMT MACHINE OPERATOR-IN CLASS SPECIAL EDUCATION TEACHER [facility] 10-21-2022 08:44-0400 Heart rate 88 /min AVANI CANTOR SMT MACHINE OPERATOR-IN CLASS SPECIAL EDUCATION TEACHER [facility] 10-21-2022 08:44-0400 Respiratory rate 18 /min AVANI CANTOR SMT MACHINE OPERATOR-IN CLASS SPECIAL EDUCATION TEACHER [facility] 10-21-2022 08:44-0400 Systolic Blood Pressure Non-Invasive 152 1 AVANI CANTOR SMT MACHINE OPERATOR-IN CLASS SPECIAL EDUCATION TEACHER [facility] 09-12-2022 13:08-0400 Body height 188 cm [employer] UB PA-C [facility] 09-12-2022 13:08-0400 Body temperature 98.06 [degF] [employer] SolutionsARZENT[employer]cros UB PA-C [facility] 09-12-2022 13:08-0400 Body weight 131.8 kg ROSHNI SCHWARZENTimecros UB PA-C [facility] 09-12-2022 13:08-0400 Body weight 37.29 kg/m2 [employer] SolutionsARZENTimecros UB PA-C [facility] 09-12-2022 13:08-0400 Diastolic Blood Pressure Non-Invasive 95 1 OVIEDO CRISTIANEARAvro TechnologiesUB PA-C [facility] 09-12-2022 13:08-0400 Heart rate 90 /min OVIEDO CRISTIANEUrban Compass UB PA-C [facility] 09-12-2022 13:08-0400 Respiratory rate 18 /min OVIEDO [employer] UB PA-C [facility] 09-12-2022 13:08-0400 Systolic Blood Pressure Non-Invasive 148 1 OVIEDO OmetriaARAvro TechnologiesUB PA-C [facility] 09-05-2022 10:00-0400 Blood Pressure Cuff Size AVANI CANTOR SMT MACHINE OPERATOR-IN CLASS SPECIAL EDUCATION TEACHER [facility] 09-05-2022 10:00-0400 Blood Pressure Location AVANILISA MCMULLENERS SMT MACHINE OPERATOR-IN CLASS SPECIAL EDUCATION TEACHER [facility] 09-05-2022 10:00-0400 Blood Pressure Method AVANI MCMULLENERS SMT MACHINE OPERATOR-IN CLASS SPECIAL EDUCATION TEACHER [facility] 09-05-2022 10:00-0400 Body height 188 cm AVANI KEMIERS SMT MACHINE OPERATOR-IN CLASS SPECIAL EDUCATION TEACHER [facility] 09-05-2022 10:00-0400 Body temperature 98.6 [degF] AVANI MCMULLENERS SMT MACHINE OPERATOR-IN CLASS SPECIAL EDUCATION TEACHER [facility] 09-05-2022 10:00-0400 Body weight 135 kg AVANI MCMULLENERS SMT MACHINE OPERATOR-IN CLASS SPECIAL EDUCATION TEACHER [facility] 09-05-2022 10:00-0400 Body weight 38.2 kg/m2 AVANI KEMIERS SMT MACHINE OPERATOR-IN CLASS SPECIAL EDUCATION TEACHER [facility] 09-05-2022 10:00-0400 Diastolic Blood Pressure Non-Invasive 91 1 AVANI MCMULLENERS SMT MACHINE OPERATOR-IN CLASS SPECIAL EDUCATION TEACHER [facility] 09-05-2022 10:00-0400 Heart rate 88 /min AVANI CANTOR SMT MACHINE OPERATOR-IN CLASS SPECIAL EDUCATION TEACHER [facility] 09-05-2022 10:00-0400 Respiratory rate 18 /min AVANI CANTOR SMT MACHINE OPERATOR-IN CLASS SPECIAL EDUCATION TEACHER [facility] 09-05-2022 10:00-0400 Systolic Blood Pressure Non-Invasive 119 1 AVANI CANTOR SMT MACHINE OPERATOR-IN CLASS SPECIAL EDUCATION TEACHER [facility] 08-28-2022 21:45-0400 Diastolic Blood Pressure Non-Invasive 84 1 ANJEL FRIAST DO [facility] 08-28-2022 21:45-0400 Heart rate 86 /min ANJEL FROMMELT DO [facility] 08-28-2022 21:45-0400 Respiratory rate 18 /min ANJEL FROMMELT DO [facility] 08-28-2022 21:45-0400 Systolic Blood Pressure Non-Invasive 136 1 ANJEL FROMMELT DO [facility] 08-28-2022 19:06-0400 Body temperature 97.88 [degF] ANJEL FROMMELT DO [facility] 08-28-2022 19:06-0400 Body weight 136.4 kg ANJEL FROMMELT DO [facility] 08-28-2022 19:06-0400 Diastolic Blood Pressure Non-Invasive 84 1 ANJEL FROMMELT DO [facility] 08-28-2022 19:06-0400 Heart rate 100 /min ANJEL FROMMELT DO [facility] 08-28-2022 19:06-0400 Respiratory rate 20 /min ANJEL FROMMELT DO [facility] 08-28-2022 19:06-0400 Systolic Blood Pressure Non-Invasive 141 1 ANJEL [employer] [facility] 08-18-2022 15:50-0500 Diastolic Blood Pressure Non-Invasive 80 1 ANJEL [employer] [facility] 08-18-2022 15:50-0500 Heart rate 81 /min ANJEL [employer] [facility] 08-18-2022 15:50-0500 Reason For Taking VItal Signs ANJEL [employer] [facility] 08-18-2022 15:50-0500 Respiratory rate 16 /min ANJEL [employer] [facility] 08-18-2022 15:50-0500 Systolic Blood Pressure Non-Invasive 142 1 ANJEL [employer] [facility] 08-18-2022 14:01-0500 Diastolic Blood Pressure Non-Invasive 89 1 ANJEL [employer] [facility] 08-18-2022 14:01-0500 Systolic Blood Pressure Non-Invasive 142 1 ANJEL [employer] [facility] 08-18-2022 13:55-0500 Body temperature 97.88 [degF] ANJEL [employer] [facility] 08-18-2022 13:55-0500 Diastolic Blood Pressure Non-Invasive 86 1 ANJEL [employer] [facility] 08-18-2022 13:55-0500 Heart rate 87 /min ANJEL [employer] [facility] 08-18-2022 13:55-0500 Respiratory rate 12 /min ANJEL [employer] [facility] 08-18-2022 13:55-0500 Systolic Blood Pressure Non-Invasive 161 1 ANJEL [employer] [facility] 08-18-2022 11:32-0500 Body temperature 98.42 [degF] ANJEL PEÑA DO [facility] 08-18-2022 11:32-0500 Body weight 153.5 kg ANJEL PEÑA DO [facility] 08-18-2022 11:32-0500 Heart rate 96 /min ANJEL [employer] [facility] 08-18-2022 11:32-0500 Respiratory rate 18 /min ANJEL [employer] [facility] 07-22-2022 13:54-0500 Diastolic Blood Pressure Non-Invasive 83 1 BLANCO SHAW MD [facility] 07-22-2022 13:54-0500 Heart rate 86 /min BLANCO SHAW MD [facility] 07-22-2022 13:54-0500 Respiratory rate 16 /min BLANCO SHAW MD [facility] 07-22-2022 13:54-0500 Systolic Blood Pressure Non-Invasive 135 1 BLANCO SHAW MD [facility] 07-22-2022 12:30-0500 Diastolic Blood Pressure Non-Invasive 89 1 BLANCO SHAW MD [facility] 07-22-2022 12:30-0500 Heart rate 91 /min BLANCO SHAW MD [facility] 07-22-2022 12:30-0500 Respiratory rate 16 /min BLANCO SHAW MD [facility] 07-22-2022 12:30-0500 Systolic Blood Pressure Non-Invasive 136 1 BLANCO SHAW MD [facility] 07-22-2022 11:30-0500 Diastolic Blood Pressure Non-Invasive 84 1 BLANCO SHAW MD [facility] 07-22-2022 11:30-0500 Heart rate 100 /min BLANCO SHAW MD [facility] 07-22-2022 11:30-0500 Respiratory rate 20 /min BLANCO SHAW MD [facility] 07-22-2022 11:30-0500 Systolic Blood Pressure Non-Invasive 142 1 BLANCO SHAW MD [facility] 07-22-2022 10:12-0500 Body height 188 cm BLANCO SHAW MD [facility] 07-22-2022 10:12-0500 Body temperature 98.96 [degF] BLANCO SHAW MD [facility] 07-22-2022 10:12-0500 Body weight 132 kg BLANCO SHAW MD [facility] 07-18-2022 14:20-0500 Diastolic Blood Pressure Non-Invasive 95 1 AARON DUQUE MD [facility] 07-18-2022 14:20-0500 Heart rate 99 /min AARON DUQUE MD [facility] 07-18-2022 14:20-0500 Respiratory rate 16 /min AARON DUQUE MD [facility] 07-18-2022 14:20-0500 Systolic Blood Pressure Non-Invasive 130 1 AARON DUQUE MD [facility] 07-18-2022 13:50-0500 Diastolic Blood Pressure Non-Invasive 88 1 AARON DUQUE MD [facility] 07-18-2022 13:50-0500 Heart rate 105 /min AARON DUQUE MD [facility] 07-18-2022 13:50-0500 Respiratory rate 16 /min AARON DUQUE MD [facility] 07-18-2022 13:50-0500 Systolic Blood Pressure Non-Invasive 137 1 AARON DUQUE MD [facility] 07-18-2022 13:20-0500 Diastolic Blood Pressure Non-Invasive 77 1 AARON DUQUE MD [facility] 07-18-2022 13:20-0500 Heart rate 104 /min AARON DUQUE MD [facility] 07-18-2022 13:20-0500 Respiratory rate 16 /min AARON DUQUE MD [facility] 07-18-2022 13:20-0500 Systolic Blood Pressure Non-Invasive 144 1 AARON DUQUE MD [facility] 07-18-2022 13:15-0500 Heart rate 99 /min AARON DUQUE MD [facility] 07-18-2022 13:00-0500 Heart rate 102 /min AARON DUQUE MD [facility] 07-18-2022 11:28-0500 Body temperature 97.88 [degF] AARON DUQUE MD [facility] 07-18-2022 11:25-0500 Respiratory Rate - Anes 0 br/min AARON DUQUE MD [facility] 07-18-2022 11:20-0500 Respiratory Rate - Anes 0 br/min AARON DUQUE MD [facility] 07-18-2022 11:15-0500 Respiratory Rate - Anes 10 br/min AARON DUQUE MD [facility] 07-18-2022 06:48-0500 Body height 188 cm AARON DUQUE MD [facility] 07-18-2022 06:48-0500 Body temperature 98.96 [degF] AARON DUQUE MD [facility] 07-18-2022 06:48-0500 Body weight 134 kg AARON DUQUE MD [facility] 07-18-2022 06:48-0500 Heart rate 99 /min AARON DUQUE MD [facility] 07-15-2022 01:50-0500 Diastolic Blood Pressure Non-Invasive 79 1 DAVONTE ONEILL MD [facility] 07-15-2022 01:50-0500 Heart rate 93 /min DAVONTE Segura [facility] 07-15-2022 01:50-0500 Respiratory rate 15 /min DAVONTE Segura [facility] 07-15-2022 01:50-0500 Systolic Blood Pressure Non-Invasive 124 1 DAVONTE ONEILL MD [facility] 07-15-2022 00:30-0500 Body temperature 97.88 [degF] DAVONTE Segura [facility] 07-15-2022 00:30-0500 Diastolic Blood Pressure Non-Invasive 91 1 DAVONTE ONEILL MD [facility] 07-15-2022 00:30-0500 Heart rate 101 /min DAVONTE ONEILL M D [facility] 07-15-2022 00:30-0500 Respiratory rate 18 /min DAVONTE ONEILL M D [facility] 07-15-2022 00:30-0500 Systolic Blood Pressure Non-Invasive 152 1 DAVONTE ONEILL MD [facility] 07-09-2022 13:12-0500 Blood Pressure Cuff Size AARON DUQUE MD [facility] 07-09-2022 13:12-0500 Blood Pressure Location AARON DUQUE MD [facility] 07-09-2022 13:12-0500 Blood Pressure Method AARON DUQUE MD [facility] 07-09-2022 13:12-0500 Body height 188 cm AARON DUQUE MD [facility] 07-09-2022 13:12-0500 Body weight 134.1 kg AARON DUQUE MD [facility] 07-09-2022 13:12-0500 Body weight 37.94 kg/m2 AARON DUQUE MD [facility] 07-09-2022 13:12-0500 Diastolic Blood Pressure Non-Invasive 82 1 AARON DUQUE MD [facility] 07-09-2022 13:12-0500 Heart rate 91 /min AARON DUQUE MD [facility] 07-09-2022 13:12-0500 Systolic Blood Pressure Non-Invasive 122 1 AARON DUQUE MD [facility] 06-27-2022 23:59-0500 Diastolic Blood Pressure Non-Invasive 75 1 YARA HENSON MD [facility] 06-27-2022 23:59-0500 Heart rate 85 /min YARA HENSON MD [facility] 06-27-2022 23:59-0500 Reason For Taking VItal Signs YARA HENSON MD [facility] 06-27-2022 23:59-0500 Respiratory rate 18 /min YARA HENSON MD [facility] 06-27-2022 23:59-0500 Systolic Blood Pressure Non-Invasive 130 1 YARA HENSON MD [facility] 06-27-2022 21:38-0500 Body temperature 97.52 [degF] YARA HENSON MD [facility] 06-27-2022 21:38-0500 Diastolic Blood Pressure Non-Invasive 100 1 YARA HENSON MD [facility] 06-27-2022 21:38-0500 Heart rate 105 /min YARA HENSON MD [facility] 06-27-2022 21:38-0500 Respiratory rate 24 /min YARA HENSON MD [facility] 06-27-2022 21:38-0500 Systolic Blood Pressure Non-Invasive 157 1 YARA HENSON MD [facility] 06-19-2022 19:36-0500 Body temperature 99.1 [degF] [facility] 06-19-2022 19:36-0500 Diastolic blood pressure 87 mm[Hg] [facility] 06-19-2022 19:36-0500 Heart rate 110 /min [facility] 06-19-2022 19:36-0500 Respiratory rate 18 /min [facility] 06-19-2022 19:36-0500 SaO2% (BldA) [Mass fraction] 96 % [facility] 06-19-2022 19:36-0500 Systolic blood pressure 126 mm[Hg] [facility] 06-01-2022 00:00-0500 Diastolic Blood Pressure Non-Invasive 88 1 YARA HENSON MD [facility] 06-01-2022 00:00-0500 Heart rate 85 /min YARA HENSON MD [facility] 06-01-2022 00:00-0500 Respiratory rate 16 /min YARA HENSON MD [facility] 06-01-2022 00:00-0500 Systolic Blood Pressure Non-Invasive 125 1 YARA HENSON MD [facility] 05-31-2022 21:41-0500 Body height 190.5 cm YARA HENSON MD [facility] 05-31-2022 21:41-0500 Body temperature 97.88 [degF] YARA HENSON MD [facility] 05-31-2022 21:41-0500 Body weight 127.3 kg YARA HENSON MD [facility] 05-31-2022 21:41-0500 Diastolic Blood Pressure Non-Invasive 89 1 YARA HENSON MD [facility] 05-31-2022 21:41-0500 Heart rate 90 /min YARA HENSON MD [facility] 05-31-2022 21:41-0500 Respiratory rate 18 /min YARA HENSON MD [facility] 05-31-2022 21:41-0500 Systolic Blood Pressure Non-Invasive 127 1 YARA HENSON MD [facility] 05-27-2022 18:03-0500 Body height 180.[address] ABDI AGUIRRE MD [facility] 05-27-2022 18:03-0500 Body temperature 98.96 [degF] DR ABDI AGUIRRE MD [facility] 05-27-2022 18:03-0500 Body weight 127.[address] ABDI AGUIRRE MD [facility] 05-27-2022 18:03-0500 Diastolic Blood Pressure Non-Invasive [address] ABDI AGUIRRE MD [facility] 05-27-2022 18:03-0500 Heart rate 118 /min DR ABDI AGUIRRE MD [facility] 05-27-2022 18:03-0500 Respiratory rate 20 /min DR ABDI AGUIRRE MD [facility] 05-27-2022 18:03-0500 Systolic Blood Pressure Non-Invasive [address] ABDI AGUIRRE MD [facility] 04-25-2022 17:56-0500 Diastolic blood pressure 98 mm[Hg] [facility] 04-25-2022 17:56-0500 Heart rate 90 /min [facility] 04-25-2022 17:56-0500 Respiratory rate 18 /min [facility] 04-25-2022 17:56-0500 SaO2% (BldA) [Mass fraction] 100 % [facility] [employer] 04-25-2022 17:56-0500 Systolic blood pressure 156 mm[Hg] [facility] [employer] 04-25-2022 15:04-0500 Body height 188 cm [facility] [employer] 04-25-2022 15:04-0500 Body mass index (BMI) [Ratio] 34.67 kg/m2 [facility] [employer] 04-25-2022 15:04-0500 Body temperature 97.11 [degF] [facility] [employer] 04-25-2022 15:04-0500 Body weight 122.47 [facility] [employer] 04-03-2022 14:31-0400 Diastolic blood pressure 90 mm[Hg] Pcp No [facility] [employer] 04-03-2022 14:31-0400 Heart rate 100 /min Pcp No [facility] [employer] 04-03-2022 14:31-0400 Respiratory rate 16 /min Pcp No [facility] [employer] 04-03-2022 14:31-0400 SaO2% (BldA) [Mass fraction] 100 % Pcp No [facility] [employer] 04-03-2022 14:31-0400 Systolic blood pressure 140 mm[Hg] Pcp No [facility] [employer] 04-03-2022 14:14-0400 Body temperature 98.2 [degF] Pcp No [facility] [employer] 03-15-2022 00:52-0400 Diastolic blood pressure 75 mm[Hg] JORGITO CANNON DO [facility] 03-15-2022 00:52-0400 Heart rate 97 /min JORGITO CANNON DO [facility] 03-15-2022 00:52-0400 Respiratory rate 16 /min JORGITO CANNON DO [facility] 03-15-2022 00:52-0400 Systolic blood pressure 121 mm[Hg] JORGITO CANNON DO [facility] 03-14-2022 22:56-0400 Body temperature 98.24 [degF] JORGITO CANNON DO [facility] 03-14-2022 22:56-0400 Diastolic blood pressure 81 mm[Hg] JORGITO CANNON DO [facility] 03-14-2022 22:56-0400 Heart rate 107 /min JORGITO CANNON DO [facility] 03-14-2022 22:56-0400 Respiratory rate 18 /min JORGITO CANNON DO [facility] 03-14-2022 22:56-0400 Systolic blood pressure 119 mm[Hg] JORGITO CANNON DO [facility] 03-08-2022 00:57-0400 Body temperature 98.29 [degF] Giles Darrion DO Work Phone: [facility] 03-08-2022 00:57-0400 Diastolic blood pressure 89 mm[Hg] Giles Darrion DO Work Phone: [facility] 03-08-2022 00:57-0400 Heart rate 100 /min Giles Darrion DO Work Phone: [facility] 03-08-2022 00:57-0400 Respiratory rate 18 /min Giles Darrion DO Work Phone: [facility] 03-08-2022 00:57-0400 SaO2% (BldA) [Mass fraction] 98 % Giles Darrion DO Work Phone: [facility] 03-08-2022 00:57-0400 Systolic blood pressure 134 mm[Hg] Giles Darrion DO Work Phone: [facility] 01-03-2022 09:42-0400 Body height 185.4 cm Ibrahima Schaefer MD Work Phone: [facility] 01-03-2022 09:42-0400 Body temperature 98.29 [degF] Ibrahima Schaefer MD Work Phone: [facility] 01-03-2022 09:42-0400 Body weight 144.7 kg Ibrahima Schaefer MD Work Phone: [facility] 01-03-2022 09:42-0400 Diastolic blood pressure 76 mm[Hg] Ibrahima Schaefer MD Work Phone: [facility] 01-03-2022 09:42-0400 Heart rate 102 /min Ibrahima Schaefer MD Work Phone: [facility] 01-03-2022 09:42-0400 Respiratory rate 18 /min Ibrahima Schaefer MD Work Phone: [facility] 01-03-2022 09:42-0400 SaO2% (BldA) [Mass fraction] 97 % Ibrahima Schaefer MD Work Phone: [facility] 01-03-2022 09:42-0400 Systolic blood pressure 124 mm[Hg] Ibrahima Schaefer MD Work Phone: [facility] 01-01-2022 20:51-0400 Diastolic blood pressure 86 mm[Hg] [facility] Work Phone: 01-01-2022 20:51-0400 Heart rate 83 /min [facility] Work Phone: 01-01-2022 20:51-0400 Respiratory rate 18 /min [facility] Work Phone: 01-01-2022 20:51-0400 SaO2% (BldA) [Mass fraction] 100 % [facility] Work Phone: 01-01-2022 20:51-0400 Systolic blood pressure 133 mm[Hg] [facility] Work Phone: 01-01-2022 17:58-0400 Body height 185.42 cm [facility] Work Phone: 01-01-2022 17:58-0400 Body mass index (BMI) [Ratio] 42.1 kg/m2 [facility] Work Phone: 01-01-2022 17:58-0400 Body temperature 98.1 [degF] [facility] Work Phone: 01-01-2022 17:58-0400 Body weight 145 kg [facility] Work Phone: 12-21-2021 22:34-0400 Diastolic blood pressure 83 mm[Hg] ANJEL FROMMELT DO [facility] 12-21-2021 22:34-0400 Heart rate 77 /min ANJEL FROMMELT DO [facility] 12-21-2021 22:34-0400 Reason For Taking VItal Signs ANJEL FROMMELT DO [facility] 12-21-2021 22:34-0400 Respiratory rate 20 /min ANJEL FROMMELT DO [facility] 12-21-2021 22:34-0400 Systolic blood pressure 138 mm[Hg] ANJEL FROMMELT DO [facility] 12-21-2021 21:27-0400 Diastolic blood pressure 93 mm[Hg] ANJEL FROMMELT DO [facility] 12-21-2021 21:27-0400 Heart rate 87 /min ANJEL FROMMELT DO [facility] 12-21-2021 21:27-0400 Reason For Taking VItal Signs ANJEL FROMMELT DO [facility] 12-21-2021 21:27-0400 Respiratory rate 20 /min ANJEL FROMMELT DO [facility] 12-21-2021 21:27-0400 Systolic blood pressure 144 mm[Hg] ANJEL FROMMELT DO [facility] 12-21-2021 20:43-0400 Body temperature 99.14 [degF] ANJEL PEÑA DO [facility] 12-21-2021 20:43-0400 Diastolic blood pressure 89 mm[Hg] ANJEL FRIAST [facility] 12-21-2021 20:43-0400 Heart rate 96 /min ANJEL PEÑA DO [facility] 12-21-2021 20:43-0400 Respiratory rate 22 /min ANJEL PEÑA DO [facility] 12-21-2021 20:43-0400 Systolic blood pressure 172 mm[Hg] ANJEL PEÑA DO [facility] 11-30-2021 20:30-0400 Diastolic blood pressure 82 mm[Hg] YARA HENSON MD [facility] 11-30-2021 20:30-0400 Heart rate 78 /min YARA HENSON MD [facility] 11-30-2021 20:30-0400 Mean blood pressure 101 mm[Hg] YARA HENSON MD [facility] 11-30-2021 20:30-0400 Respiratory rate 18 /min YARA HENSON MD [facility] 11-30-2021 20:30-0400 Systolic blood pressure 140 mm[Hg] YARA HENSON MD [facility] 11-30-2021 19:12-0400 Body temperature 98.06 [degF] YARA HENSON MD [facility] 11-30-2021 19:12-0400 Diastolic blood pressure 89 mm[Hg] YARA HENSON MD [facility] 11-30-2021 19:12-0400 Heart rate 87 /min YARA HENSON MD [facility] 11-30-2021 19:12-0400 Respiratory rate 18 /min YARA HENSON MD [facility] 11-30-2021 19:12-0400 Systolic blood pressure 148 mm[Hg] YARA HENSON MD [facility] 11-14-2021 13:10-0400 Body height 185.4 cm AARNO DUQUE MD [facility] 11-14-2021 13:10-0400 Body weight 140.9 kg AARON DUQUE MD [facility] 11-14-2021 13:10-0400 Body weight 40.99 kg/m2 AARON DUQUE MD [facility] 11-14-2021 13:10-0400 diastolic 74 mm[Hg] AARON DUQUE MD [facility] 11-14-2021 13:10-0400 Heart rate 103 /min AARON DUQUE MD [facility] 11-14-2021 13:10-0400 systolic 128 mm[Hg] AARON DUQUE MD [facility] 10-06-2021 14:52-0400 Body temperature 98.96 [degF] ASHLYN BLISS MD [facility] 10-06-2021 14:52-0400 Diastolic blood pressure 89 mm[Hg] ASHLYN BLISS MD [facility] 10-06-2021 14:52-0400 Heart rate 112 /min ASHLYN BLISS MD [facility] 10-06-2021 14:52-0400 Respiratory rate 18 /min ASHLYN BLISS MD [facility] 10-06-2021 14:52-0400 Systolic blood pressure 148 mm[Hg] ASHLYN BLISS MD [facility] Encounters Encounter Date Encounter Type Care Provider Facility Start: 01-25-2025 End: 01-26-2025 Emergency department patient visit Viola HAYESC Work Phone: -Emergency Department Work Phone: Start: 12-29-2024 End: 12-29-2024 Emergency department patient visit Viola Starkey FACING MACHINE OPERATOR-C Work Phone: -Emergency Department Work Phone: Start: [...] Start: 09-08-2024 End: 09-08-2024 ambulatory VIOLA STARKEY SMT MACHINE OPERATOR-IN CLASS SPECIAL EDUCATION TEACHER Facility:[facility] Start: 09-07-2024 End: 09-08-2024 Emergency department patient visit SHANIKA TIRADO Facility:[facility] Start: 08-24-2024 End: 08-24-2024 Emergency department patient visit No Primary Care Physician -Emergency Department Work Phone: Start: 08-13-2024 End: 08-13-2024 Office outpatient new 45 minutes Stephon Benavides MD Work Phone: [facility] Comment on above: History of abdominal hernia Start: 06-29-2024 End: 06-29-2024 Subsequent hospital visit by physician Rad External Film EF [facility] [employer]TERNAL [employer] Comment on above: Arrived Start: 06-29-2024 End: 06-29-2024 Office outpatient new 45 minutes Jonathan Gonzalez MD Work Phone: [facility] Comment on above: Periumbilical abdomi nal pain (Primary Dx); History of abdominal hernia Start: 05-16-2024 End: 05-16-2024 Emergency department patient visit RADHA YI DO [facility] Start: 02-24-2024 End: 02-25-2024 Emergency department patient visit Guevara Choi Facility:[facility] Start: 10-10-2023 Telephone encounter Juliocesar Borrero MD, PhD Work Phone: [facility] Comment on above: Care Coordination Left lateral abdomin al pain (Primary Dx) Start: 10-07-2023 End: 10-07-2023 Evaluation and management of inpatient JESE RICHARDSON Facility:[facility] Start: 10-07-2023 Orders Only Jese Richardson MD Work Phone: General Surgery Comment on above: Left lower quadrant abdominal pain (Primary Dx) Start: 09-16-2023 Encounter for other preprocedural examination JESE RICHARDSON [facility] Start: 09-16-2023 End: 09-17-2023 ambulatory JESE RICHARDSON Facility:[facility] Start: 09-16-2023 Encounter for other preprocedural examination JESE RICHARDSON [facility] Start: 09-16-2023 End: 09-17-2023 ambulatory JESE DARBY DYLAN Facility:[facility] Start: 09-16-2023 End: 09-16-2023 [address] [facility] [address] [facility] Work Phone: Pre Anesthesia Comment on above: Pre-op evaluation (P rimary Dx); Post traumatic seizure disorder (HCC); Morbid obesity (HCC); Tobacco use Start: 09-16-2023 End: 09-16-2023 Preprocedural examination done Pacc [facility] Work Phone: [facility] Work Phone: Start: 09-11-2023 End: 09-11-2023 Emergency department patient visit DAVONTE ONEILL MD Facility:[facility] Start: 09-11-2023 End: 09-11-2023 Emergency department patient visit DAVONTE ONEILL MD [facility] Start: 08-27-2023 End: 08-27-2023 ambulatory VIOLA STARKEY APRN-IN CLASS SPECIAL EDUCATION TEACHER Facility:[facility] Start: 08-27-2023 End: 08-27-2023 Minor Procedure REYES MOORE DO [facility] Start: 08-06-2023 End: 08-06-2023 ambulatory LINDA GRIFFITHS Facility:[facility] Start: 08-06-2023 End: 08-06-2023 Patient encounter procedure Kelley Meraz SMT MACHINE OPERATOR.IN CLASS SPECIAL EDUCATION TEACHER, DNP Work Phone: Neurology Pain Comment on above: Abdominal pain, unsp ecified abdominal location (Primary Dx) Start: 07-21-2023 ambulatory Jese Richardson MD Work Phone: [facility] Comment on above: 424 Cure (Resect ion of Mesh 2 hours los 0) Start: 07-21-2023 Preprocedural examination done Jese Richardson MD Work Phone: [facility] Start: 07-18-2023 Orders Only Linda Griffiths BIBIANA.IN CLASS SPECIAL EDUCATION TEACHER Work Phone: General Surgery Comment on above: Left lower quadrant abdominal pain (Primary Dx) Start: 07-07-2023 End: 07-08-2023 ambulatory JESE RICHARDSON Facility:[facility] Start: 07-03-2023 End: 07-04-2023 Emergency department patient visit No Primary Care Physician [facility] Work Phone: Start: 06-28-2023 End: 06-28-2023 Emergency department patient visit DR LEDY REESE MD Facility:B Start: 06-28-2023 End: 06-28-2023 Emergency department patient visit DR LEDY REESE MD [facility] Start: 06-12-2023 End: 06-12-2023 Patient encounter procedure No Primary Care Physician [facility] Work Phone: Start: 06-08-2023 End: 06-08-2023 Emergency department patient visit PAUL DOBSON Facility:B Start: 06-08-2023 End: 06-08-2023 Emergency department patient visit DR PAUL DOBSON DO [facility] Start: 06-01-2023 End: 06-01-2023 Emergency department patient visit [facility] Work Phone: Start: 05-17-2023 End: 05-18-2023 ambulatory TOI MARMOLEJO DO Facility:B Start: 05-16-2023 End: 05-17-2023 Emergency department patient visit TOI MARMOLEJO DO Facility:B Start: 05-16-2023 End: 05-16-2023 Emergency department patient visit TOI MARMOLEJO DO [facility] Start: 02-23-2023 End: 02-23-2023 Emergency department patient visit [facility] Start: 02-12-2023 End: 02-12-2023 Emergency department patient visit TOI MARMOLEJO DO Facility:B Start: 02-12-2023 End: 02-12-2023 Emergency department patient visit TOI MARMOLEJO DO [facility] Start: 10-28-2022 End: 10-29-2022 ambulatory ROSHNI FLORES PA-C Facility:A Start: 10-28-2022 End: 10-28-2022 Patient encounter procedure ROSHNI FLORES PA-C [facility] Start: 10-28-2022 End: 10-28-2022 Emergency department patient visit YARA HENSON MD Facility:B Start: 10-28-2022 End: 10-28-2022 Emergency department patient visit YARA HENSON MD [facility] Start: 10-21-2022 End: 10-22-2022 ambulatory AVANI CANTOR SMT MACHINE OPERATOR-IN CLASS SPECIAL EDUCATION TEACHER Facility:A Start: 10-21-2022 End: 10-21-2022 Patient encounter procedure AVANI CANTOR SMT MACHINE OPERATOR-IN CLASS SPECIAL EDUCATION TEACHER [facility] Start: 10-20-2022 End: 10-20-2022 Emergency department patient visit DR LEDY REESE MD Facility:B Start: 09-12-2022 End: 09-12-2022 Patient encounter procedure ROSHNI FLORES PA-C [facility] Start: 09-05-2022 End: 09-05-2022 Patient encounter procedure AVANI CANTOR SMT MACHINE OPERATOR-IN CLASS SPECIAL EDUCATION TEACHER [facility] Start: 08-28-2022 End: 08-28-2022 Emergency department patient visit [facility] Start: 08-18-2022 End: 08-18-2022 Emergency department patient visit [facility] Start: 07-22-2022 End: 07-22-2022 Emergency department patient visit BLANCO SHAW MD [facility] Start: 07-18-2022 End: 07-18-2022 SAME DAY STAY AARON DUQUE MD [facility] Start: 07-15-2022 End: 07-15-2022 Emergency department patient visit DAVONTE ONEILL MD [facility] Start: 07-09-2022 End: 07-09-2022 Admission to establishment AARON DUQUE MD [facility] Start: 06-27-2022 End: 06-28-2022 Emergency department patient visit YARA HENSON MD [facility] Start: 06-19-2022 End: 06-20-2022 [facility] Comment on above: Seizure (CMS/HCC) (H CC) (Primary Dx) Start: 06-09-2022 End: 06-10-2022 Emergency department patient visit PHYSICIAN NO [facility] Start: 06-06-2022 End: 06-06-2022 Emergency department patient visit PHYSICIAN NO [facility] Start: 05-31-2022 End: 06-01-2022 Emergency department patient visit YARA HENSON MD [facility] Start: 05-27-2022 End: 05-27-2022 Emergency department patient visit DR ABDI AGUIRRE MD [facility] Start: 05-22-2022 End: 05-23-2022 Emergency department patient visit PATRICK PLATA [facility] Start: 04-25-2022 End: 04-25-2022 Emergency department patient visit PCP NO [facility] Start: 04-25-2022 End: 04-25-2022 Emergency department patient visit [facility] Emergency Department Comment on above: Acute pain of right shoulder (Primary Dx); Strain of right shoulder, initial encounter Start: 04-03-2022 End: 04-03-2022 Emergency department patient visit PCP NO [facility] Start: 04-03-2022 End: 04-03-2022 Emergency department patient visit Pcp No [facility] Emergency Department Comment on above: Injury of right wris t, initial encounter (Primary Dx) Start: 03-14-2022 End: 03-15-2022 Emergency department patient visit JORGITO CANNON DO [facility] Start: 03-08-2022 End: 03-08-2022 Emergency department patient visit UNKNOWN PROVIDER [facility] Start: 03-08-2022 End: 03-08-2022 Emergency department patient visit Giles Maier DO Work Phone: [facility] ED Comment on above: Closed head injury, initial encounter (Primary Dx) Start: 01-03-2022 End: 01-03-2022 Patient encounter procedure Ibrahima Schaefer MD Work Phone: General Surgery Comment on above: Hematoma (Primary Dx ); Incisional hernia, without obstruction or gangrene Start: 01-01-2022 End: 01-01-2022 Emergency department patient visit [facility] Start: 12-21-2021 End: 12-21-2021 Emergency department patient visit ANJEL TIMFIDEL DO [facility] Start: 11-30-2021 End: 11-30-2021 Emergency department patient visit YARA HENSON MD [facility] Start: 11-14-2021 End: 11-14-2021 Admission to establishment AARON DUQUE MD [facility] Start: 10-26-2021 End: 10-26-2021 Patient encounter procedure TRU TOUSSAINT SMT MACHINE OPERATOR-IN CLASS SPECIAL EDUCATION TEACHER [facility] Start: 10-06-2021 End: 10-06-2021 Emergency department patient visit ASHLYN BLISS MD [facility] Start: 12-23-2016 End: 12-23-2016 Emergency department patient visit MILDRED GALLARDO Facility:[facility] Start: 12-16-2016 End: 12-16-2016 Emergency department patient visit JOSH HELTON Facility:[facility] Procedures Date Procedure Procedure Detail Performing Clinician Start: 01-25-2025 Estimated creatinine clearance Viola Starkey FACING MACHINE OPERATOR-C Work Phone: Start: 12-29-2024 Computed tomography of abdomen and [...] Speci men Type: BLOOD SPECIMEN Ordering Facility: [facility] Address: [address] [place] [address] Performed By: #### T [id number] #### CC MAIN BLOOD BANK [facility] [id number] [address] [place] [address] [place] Start: 08-27-2023 Colonoscopy [...] Basic metabolic pane l calcium total Kyree Christie PA Work Phone: Start: 06-19-2022 Drug assay [...] Radex wrist complete minimum 3 views Julianna Accordino PA Work Phone: Start: 03-08-2022 Ct cervical spine w/ o contrast material Giles Darrion DO Work Phone: Start: 03-08-2022 Ct head/brain w/o co ntrast material Giles Darrion DO Work Phone: Start: 01-01-2022 Computed tomography of abdomen and pelvis with contrast Start: 11-22-2021 Repair of recurrent ventral hernia YARA HENSON MD Start: 06-16-2018 History of repair of umbilical hernia TRU TOUSSAINT SMT MACHINE OPERATOR-IN CLASS SPECIAL EDUCATION TEACHER Start: 08-29-2017 Adult depression scr eening assessment Ibrahima Schaefer MD Work Phone: Start: 11-12-2016 Lipid 1996 panel - S luigi or Plasma Linda Griffiths SMT MACHINE OPERATOR.IN CLASS SPECIAL EDUCATION TEACHER Work Phone: Appendectomy ASHLYN Segura Drain, device (physi mary alice object) AVANI CANTOR SMT MACHINE OPERATOR-IN CLASS SPECIAL EDUCATION TEACHER Comment on above: placed and removed x 3 Plan of Treatment Date Care Activity Detail Author Start: 2029 Zoster Vaccines (1 of 2) Zoste r Vaccines (1 of 2) [id number] Start: 01-26-2025 [facility] Start: 12-29-2024 [facility] Start: 12-09-2024 Hepatic function panel [facility] Start: 12-09-2024 Triacylglycerol lipa se measurement [facility] Start: 12-07-2024 [facility] Start: 08-24-2024 [facility] Start: 02-15-2024 COVID-19 Vaccine ( season) COVID-19 Vaccine () [facility] Start: 02-15-2024 Influenza vaccination C [facility] Start: 07-21-2023 End: 07-21-2024 aPTT in Platelet poor plasma by Coagulation assay ACTIVATED PTT Lab Routine Preoperative examination Infected hernioplasty mesh, sequela Expected: 07/21/2023, Expires: 07/21/2024 [facility] Work Phone: Comment on above: Expected: 07/21/2023 , Expires: 07/21/2024 Start: 07-21-2023 End: 07-21-2024 CBC W Auto Differential panel - Blood CBC + DIFF Lab Routine Preoperative examination Infected hernioplasty mesh, sequela Expected: 07/21/2023, Expires: 07/21/2024 [facility] Work Phone: Comment on above: Expected: 07/21/2023 , Expires: 07/21/2024 Start: 07-21-2023 End: 07-21-2024 Comprehensive metabolic 2000 panel - Serum or Plasma COMP METABOLIC PANEL Lab Routine Preoperative examination Infected hernioplasty mesh, sequela Expected: 07/21/2023, Expires: 07/21/2024 [facility] Work Phone: Comment on above: Expected: 07/21/2023 , Expires: 07/21/2024 Start: 07-21-2023 End: 07-21-2024 PT panel - Platelet poor plasma by Coagulation assay PROTHROMBIN TIME/PT Lab Routine Preoperative examination Infected hernioplasty mesh, sequela Expected: 07/21/2023, Expires: 07/21/2024 [facility] Work Phone: Comment on above: Expected: 07/21/2023 , Expires: 07/21/2024 Start: 07-21-2023 End: 07-21-2024 TYPE AND SCREEN,30 DAY TYPE AND SCREEN,30 DAY Blood Bank Routine Preoperative examination Infected hernioplasty mesh, sequela Expected: 07/21/2023 (Approximate), Expires: 07/21/2024 [facility] Work Phone: Comment on above: Expected: 07/21/2023 (Approximate), Expires: 07/21/2024 Start: 07-03-2023 [facility] Start: 06-16-2023 Depression Assessment Depression Ass essment [facility] Start: 06-12-2023 Patient referral [facility] Work Phone: Start: 06-01-2023 [facility] Start: 02-14-2023 Covid-19 Vaccine ( season) Covid-19 Vaccine ( season) [facility] Start: 02-14-2023 Influenza vaccination Influenza Vacc ine (#1) [facility] Start: 02-14-2022 Influenza vaccination C [facility] Start: 01-14-2022 Influenza vaccination Flu vaccine (# 1) [facility] Start: 01-03-2022 End: 03-05-2022 Bacteria identified in Body fluid by Culture [facility] Work Phone: Comment on above: Expected: 01/03/2022 , Expires: 03/05/2022 Start: 01-01-2022 Application of abdom inal corset [facility] Work Phone: Start: 11-12-2021 Lipid panel Lipid Screening [facility] Start: 11-12-2021 LIPID SCREEN LIPID SCREEN [facility] Start: 06-25-2021 COVID-19 Vaccine (4 - Booster for Moderna series) COVID-19 Vaccine (4 - Booster for Moderna series) [facility] Start: 2019 Lipid panel Lipids [facility] Start: 08-29-2018 Adult depression screening assessment DEPRESSION SCREENING [facility] Start: 2014 Diabetes screen Diabetes screen [facility] Start: 2001 DTaP/Tdap/Td Vaccine s (1 - Tdap) DTaP/Tdap/Td Vaccines (1 - Tdap) [facility] Start: 1998 DTaP/Tdap/Td vaccine (1 - Tdap) DTaP/Tdap/Td vaccine (1 - Tdap) [facility] Start: 1998 DTaP/Tdap/Td Vaccine s (1 - Tdap) DTaP/Tdap/Td Vaccines (1 - Tdap) [facility] Start: 1998 Hepatitis B Vaccine (1 of 3 - 19+ 3-dose series) Hepatitis B Vaccine (1 of 3 - 19+ 3-dose series) [facility] Start: 1998 Hepatitis B Vaccines (1 of 3 - 19+ 3-dose series) Hepatitis B Vaccines (1 of 3 - 19+ 3-dose series) [facility] Start: 1998 Pneumococcal Vaccine : Pediatrics and At-Risk Adult Patients (1 of 2 - PCV) Pneumococcal Vaccine: Pediatrics and At-Risk Adult Patients (1 of 2 - PCV) [facility] Start: 1998 Urine microalbumin profile [facility] Start: 1997 Diabetes mellitus screening Diabetes Screening [facility] Start: 1997 HEPATITIS C SCREENING HEPATITIS C SC SHIVA [facility] Start: 1997 Hepatitis C screening B [facility] Start: 1997 HIV SCREENING HIV SCREENING [facility] Start: 1997 HIV screening HIV Screening [facility] Start: 1994 HIV screening HIV screen [facility] Start: 1991 Depression Screen Depression Screen [facility] Start: 1985 PNEUMOCOCCAL (1 - PCV) PNEUMOCOCCAL (1 - PCV) [facility] Start: 1985 Pneumococcal 0-64 ye ars Vaccine (1 - PCV) Pneumococcal 0-64 years Vaccine (1 - PCV) [facility] Start: 1985 Pneumococcal vaccination Pneum ococcal Vaccine (1 of 2 - PCV) [facility] Start: 1985 Pneumococcal Vaccine : Pediatrics (0 to 5 Years) and At-Risk Patients (6 to 64 Years) (1 - PCV) Pneumococcal Vaccine: Pediatrics (0 to 5 Years) and At-Risk Patients (6 to 64 Years) (1 - PCV) [facility] Start: 01-25-1980 MMR Vaccines (1 of 1 - Standard series) MMR Vaccines (1 of 1 - Standard series) [facility] Start: 1979 COVID-19 Vaccine (#1) COVID-19 Vacci ne (#1) [facility] Start: 1979 Hepatitis B Vaccine (1 of 3 - 3-dose series) Hepatitis B Vaccine (1 of 3 - 3-dose series) [facility] Start: 1979 Hepatitis B Vaccines (1 of 3 - 3-dose series) Hepatitis B Vaccines (1 of 3 - 3-dose series) [facility] Start: 1979 HIV screening HIV Screening [facility] Start: 1979 Lipid panel Lipid Panel [facility] Start: 1979 Screening for malign ant neoplasm of colon [facility] Start: 1979 Yearly Adult Physical Yearly Adult [facility] End: 07-21-2024 ECG COMPLETE ECG COMPLETE ECG Routine Preoperative examination Infected hernioplasty mesh, sequela 1 Occurrences starting 07/21/2023 until 07/21/2024 [facility] Work Phone: Comment on above: 1 Occurrences starti ng 07/21/2023 until 07/21/2024 Erythrocyte mean corpuscular volume determination [facility] Hematocrit [Volume Fraction] of Blood [facility] Hemoglobin [Mass/vol ume] in Blood [facility] Leukocytes [#/volume ] in Blood [facility] Mean corpuscular hemoglobin concentration determination [facility] Mean corpuscular hemoglobin determination [facility] Measurement of renal function [facility] Neutrophil count [facility] Neutrophil percent differential count [facility] Patient Education [facility] Work Phone: Patient referral [facility] Work Phone: Platelets [#/volume] in Blood [facility] Red blood cell count [facility] Red cell distributio n width determination [facility] REFER FOR ADMIT INTERVIEW REFER FOR ADMIT INTERVIEW Procedures Routine Preoperative examination Infected hernioplasty mesh, sequela Ordered: 07/21/2023 [facility] Work Phone: Comment on above: Ordered: 07/21/2023 SPINE INTERVENTION PROCEDURE SPINE INTERVENTION PROCEDURE Procedures Routine Left lateral abdominal pain Ordered: 10/10/2023 [facility] Work Phone: Comment on above: Ordered: 10/10/2023 [facility] Immunizations Immunization Date Immunization Notes Care Provider Fa [facility] 04-30-2021 SARS-CoV-2 (COVID-19 ) mRNA-1273 vaccine JORGITO CANNON DO [facility] Comment on above: Result Comment: 2021: [id number] 10-05-2020 SARS-CoV-2 (COVID-19 ) mRNA-1273 vaccine JORGITO CANNON DO [facility] 09-06-2020 SARS-CoV-2 (COVID-19 ) mRNA-1273 vaccine JORGITO CANNON DO [facility] 09-09-2013 influenza, seasonal, injectable, preservative free ASHLYN BLISS MD [facility] 09-09-2013 influenza virus vaccine, unspecified formulation [facility] Payers Date Payer Category Payer Managed Care (Private) NGUYỄN YOST [facility] [id number] 2024 Self-pay [id number] 2023 Unknown NGUYỄN GUERRERO X [id number] 2023-Present [phone] [place] [address] HMO [id number] 2023 Unknown [id number] 2022 Medicaid (Managed Care) 1.2. [id number] 2022 Medicaid 2022 Medicaid MEDICAID [facility] MEDICAID [id number] 2022-Present [phone] [address] [place] [address] Medicaid [id number] 2014 Medicaid [id number] 2014 Medicaid [id number] 1979 Unknown [id number] 2.16840.1.063371.3.579.2. 668 1979 Unknown [id number] 2.16840.1.585076.3.579.2. 204 1979 Unknown [id number] 2.16840.1.158235.3.579.2. 204 1979 Unknown [id number] 2.16840.1.230280.3.579.2. 651 1979 Unknown [id number] 2.16.840.1.588188.3.579.2. 903 1979 Unknown [id number] 2.16.840.1.356584.3.579.2. 903 1979 Unknown [id number] 2.16.840.1.824261.3.579.2. 1979 Unknown [id number] 2.16.840.1.324460.3.579.2. 1979 Unknown [id number] 2.16.840.1.343281.3.579.2. 1979 Unknown [id number] 2.16.840.1.930215.3.579.2. 1979 Unknown [id number] 2.16.840.1.442934.3.579.2. 1979 Unknown [id number] 2.16.840.1.770150.3.579.2. 1979 Unknown [id number] 2.16.840.1.772251.3.579.2. 1979 Unknown [id number] 2.16840.1.266070.3.579.2. 1979 Unknown [id number] 2.16840.1.053866.3.579.2. 1979 Unknown [id number] 2.16.840.1.163322.3.579.2. 1979 Unknown [id number] 2.16840.1.771777.3.579.2. 1979 Unknown [id number] 2.16840.1.135031.3.579.2. 1979 Unknown [id number] 2.16840.1.528212.3.579.2. 1979 Unknown [id number] 2.16840.1.978498.3.579.2. 627 Unknown [id number] Unknown [id number] 2.16840.1.046235.3.579.2. 462 Unknown [id number] 2.16840.1.428620.3.579.2. 462 Unknown [id number] 2.16.840.1.385349.3.579.2. 462 Unknown [id number] 2.16.840.1.409279.3.579.2. 462 Unknown [id number] 2.16.840.1.916586.3.579.2. 462 Unknown [id number] 2.16.840.1.150844.3.579.2. 462 Unknown [id number] 2.16.840.1.512826.3.579.2. 462 Social History Date Type Detail Facility Start: 10-23-2016 End: 01-25-2025 Tobacco smoking status Smokes tobacco daily (finding) [facility] Sex Assigned At Sex [facility] Start: 10-19-2021 End: 08-27-2023 Tobacco smoking status Light tobacco smoker (finding) [facility] Start: 11-14-2021 End: 07-01-2022 Tobacco smoking status Heavy tobacco smoker (finding) [facility] Start: 01-01-2022 End: 06-01-2023 Tobacco smoking status NHIS Unknown if ever smoked [facility] Start: 09-23-2018 Cigarettes [facility] Start: 1980 Sex Assigned At Male [facility] Start: 10-23-2016 End: 08-13-2024 Cigarettes smoked current (pack per day) - Reported 2 [facility] Start: 10-23-2016 End: 08-13-2024 Tobacco use and exposure Smokeless tobacco non-user [facility] Start: 01-03-2022 End: 09-16-2023 Alcohol intake Current non-drinker of alcohol (finding) [facility] Start: 1980 Sex Assigned At Not on file [facility] Start: 12-24-2021 End: 06-29-2024 Exposure to SARS-CoV-2 (event) Not sure [facility] Start: 03-08-2022 Alcohol intake Ex-drinker (finding) [employer] Work Phone: History of tobacco use Cigarette Smoker B ON [employer] Work Phone: Start: 07-07-2023 End: 08-13-2024 Tobacco use panel [facility] National Score (1-10 0), lower number is lower risk 67 [facility] Start: 06-25-2023 Gender identity Identifies as male gender (finding) [facility] Start: 06-25-2023 Sexual orientation Heterosexual (finding) [facility] Start: 09-16-2023 Tobacco Comment Currently smokes 0.5 ppd [facility] Start: 09-16-2023 Alcohol Comment rare [facility] Start: 06-29-2024 End: 08-13-2024 Alcoholic beverage intake Lifetime non-drinker (finding) [facility] Work Phone: History of tobacco use Passive smoker [facility] Work Phone: Start: 08-24-2024 End: 09-19-2024 Sex Male (finding) [facility] Medical Equipment Procedure Code Equipment Code [...] Assessment Result Facility 05-16-2024 Functional Status Independent [facility] dionisio Priceltjessica Colindres 05-16-2024 Functional Status Standard Safet y ID band on, Allergy Band on, Call device within reach, Bed in low position, Wheels locked, Visitor at bedside, Safety level maintained [facility] 09-11-2023 Functional Status Independent [facility] 08-27-2023 Functional Status Awake, Up ad loc [facility] 08-27-2023 Functional Status Maintained, Less than 8 hours [facility] 06-28-2023 Functional Status Room check performed [facility] 06-28-2023 Functional Status [facility] 06-08-2023 Functional Status Independent [facility] 06-08-2023 Functional Status Ambulation in Zam[place], Ambulation in Room [facility] 05-16-2023 Functional Status Standard Safet y ID band on, Allergy Band on, Call device within reach, Bed in low position, Wheels locked, Upper/Half-Length side-rails up, personal items within reach, Visitor at bedside [facility] 02-12-2023 Functional Status ID band on, Allergy Band on, Call device within reach, Bed in low position, Wheels locked, Bedside Cart Locked, Visitor at bedside, Safety level maintained [facility] 02-12-2023 Functional Status [facility] 10-28-2022 Functional Status ID band on, Allergy Band on [facility] 10-28-2022 Functional Status ID band on, Allergy Band on, Call device within reach, Bed in low position, Wheels locked, Upper/Half-Length side-rails up, Phone within reach, personal items within reach, Bedside Cart Locked, Visitor at bedside [facility] 10-21-2022 Functional Status ID band on, Allergy Band on, Safety level maintained [facility] 09-12-2022 Functional Status Ambulating in zamorano [facility] 09-05-2022 Functional Status Sensory Deficits None [facility] 08-28-2022 Functional Status Standard Safet y ID band on, Call device within reach, Bed in low position, Wheels locked, Upper/Half-Length side-rails up, Bedside Cart Locked, Safety level maintained [facility] 08-18-2022 Functional Status Independent Brett [facility] 08-18-2022 Functional Status Room check performed [facility] 07-22-2022 Functional [facility] Functional Status Standard Safet y ID band on, Allergy Band on, Call device within reach, Bed in low position, Wheels locked, Visitor at bedside [facility] 07-18-2022 Functional Status abdominal bind er on, ice on [facility] 07-18-2022 [facility] Functional Status Activity Pillo tance Independent [facility] 07-15-2022 Functional Status Standard Safet y ID band on, Allergy Band on, Call device within reach, Bed in low position, Wheels locked, Upper/Half-Length side-rails up, Phone within reach, personal items within reach, Safety level maintained [facility] 07-09-2022 Functional Status Sensory Deficits None A [facility] 06-27-2022 Functional Status Room check performed [facility] 06-27-2022 [facility] Functional Status Ambulating in zamorano, Ambulating in room, Awake [facility] 05-31-2022 Functional Status Standard Safet y ID band on, Allergy Band on, Call device within reach, Bed in low position, Wheels locked, Upper/Half-Length side-rails up, personal items within reach [facility] 05-27-2022 Functional Status Independent Brett [facility] 03-15-2022 Functional Status Room check performed [facility] 03-14-2022 [facility] 12-21-2021 Functional Status Standard Safet y ID band on, Call device within reach, Bed in low position, Wheels locked, Upper/Half-Length side-rails up, Bedside Cart Locked, Safety level maintained [facility] 07-08-2022 Functional Status [facility] 11-30-2021 Functional Status Standard Safet y ID band on, Call device within reach, Bed in low position [facility] 11-14-2021 Functional Status Sensory Deficits None A [facility] 10-06-2021 Functional Status [facility] 10-06-2021 Functional Status [facility] Mental Status Date Assessment Result Facility 05-16-2024 Mental Status Orientation Oriented x 4 [facility] 05-16-2024 Mental Status [facility] 09-11-2023 Mental Status Orientation Oriented x 4 [facility] 08-27-2023 Mental Status Oriented x 4 [facility] 08-27-2023 [facility]23 Mental Status Orientation Oriented x 4 [facility] 06-28-2023 Mental Status [facility] 06-08-2023 Mental Status Orientation Oriented x 4 [facility] 06-08-2023 Mental Status [facility] 05-16-2023 Mental Status Orientation Oriented x 4 [facility] 02-12-2023 Mental Status Orientation Oriented x 4 [facility] 02-12-2023 Mental [facility] 10-28-[facility]22 Mental Status Orientation Oriented x 4 [facility] 10-28-2022 Mental Status Oriented x 4 [facility] 10-21-2022 Mental Status Orientation Oriented x 4 [facility] 09-12-2022 Mental Status Orientation Oriented x 4 [facility] 09-05-2022 Mental Status Orientation Oriented x 4 [facility] 08-28-2022 Mental Status Orientation Oriented x 4 [facility] 08-18-2022 Mental Status Orientation Oriented x 4 [facility] 08-18-2022 [facility] 07-22-[facility]22 Mental Status Orientation Oriented x 4 [facility] 07-22-2022 Mental Status [facility] 07-18-2022 Mental Status Orientation Oriented x 4 [facility] 07-18-2022 Mental Status [facility] 07-15-2022 Mental Status Orientation Oriented x 4 [facility] 07-15-2022 Mental Status [facility] 06-28-2022 Mental Status Orientation Oriented x 4 [facility] 06-27-2022 Mental Status [facility] 06-01-2022 Mental Status Orientation Oriented x 4 [facility] 05-31-2022 Mental Status [facility] 05-27-2022 Mental Status Orientation Oriented x 4 [facility] 03-15-2022 Mental Status Orientation Oriented x 4 [facility] 03-14-2022 Mental Status [facility] 12-21-2021 Mental Status Oriented x 4 [facility] 12-21-2021 Mental Status [facility] 11-30-2021 Mental Status Orientation Oriented x 4 [facility] 11-30-2021 Mental Status [facility] 10-06-2021 Mental Status [facility] 10-06-2021 Mental Status [facility] Clinical Notes 10-06-2021 to 12-29-2024 Note Date & Type Note Facility 12-29-2024 Discharge summary [facility] 12-29-2024 Radiology Diagnostic study note [facility] Imaging Services [address] [place] [address] Abdomen/Pelvis W IV Cont ONLY MR#: [id number] Acct: [id number] Name: PATRICK KOROMA Rep #: [id number] : 1980 M 44 From: Desirae Cruz MD PCP: ERIC Anaya Status: REG ER Study:Abdomen/Pelvis W IV Cont ONLY Date of E xam: 12/29/24 Exam# [id number] Ordering Dr: Shay Cordero MD PROCEDURE: ABDOMEN/PELVIS [...] containing omental fat, without bowel. Reading Location: [place] CC: ERIC Starkey; Dr. Justin Cordero MD ~ Corporate Officer: Signed [facility] 12-29-2024 Discharge summary Note Date/Time December 29, 2024 10:50pm [facility] Medical Records Department [address] [place] [address] Emergency Department Summary 12/29/24 MR#: [id number] Acct: [id number] Name: PATRICK KOROMA Rep #:[id number] : 1980 44 From: Justin Cordero MD [...] did his other hernia repair surgeries in [place] he was told by him he could do it. He referred himto a surgeon in [place] at and they also told him they were not able to help him. Patient denies any fever. No dysuria. Denies any nausea, vomiting or diarrhea. No back pain. Prior similar symptoms: Yes Recent Illness/Hospitalization: No [facility] Medical History Seroma after procedure Influenza [...] obstruction. I have referred him to the [facility] they have general surgeons here that her hernia tube repairer to see if they can offer [...] % (Auto) 61.9 Lymph % (Auto) 30.4 Morehouse % (Auto) 5.1 Eos % (Auto) 1.7 [...] containing omental fat, without bowel. Reading Location: [place] [address] Discharge Plan Triage Chief Complaint: Abd Pain ED Provider: Justin Cordreo Dx/Rx/DC Orders Clinical Impression: Abdominal pain, Ventral hernia Instructions: ED Hernia (Adult) Prescriptions: No Action NK Primary Care Provider: Viola Starkey FACING MACHINE OPERATOR Referrals: Viola Starkey NP, FACING MACHINE OPERATOR-C [Primary Care Provider] - Activity Restrictions/Additional Instructions: Call the [facility]. Get the name and office number of the general surgeons there that are hernia tube repairer. Call their office to get an appointment. Motrin and Tylenol for pain. Print Language: Turkish Disposition Disposition: Home, Self Care What to do if you have Problems For any increased pain, shortness of breath, bleeding, nausea or vomiting, chestpain, or any unexpected problems, contact your Primary Care Provider. Call [facility] ([phone]) or report to the closest Emergency Room. Call 911 if necessary. 12/29/240 <Electronically signed by Justin Cordero MD> Cosigner Signature (if applicable): CC: ERIC Starkey ~ Signed [facility] Work Phone: 1(597) 719-914106-26-2025 Radiology Diagnostic study note [facility] Imaging Services [address] [place] [address]28161 Abdomen/Pelvis W IV Cont ONLY MR#: [id number] Acct: [id number] Name: PATRICK KOROMA Rep #: [id number] : 1980 M 44 From: Weston Mena MD PCP: ERIC Anaya Status: REG ER Study:Abdomen/Pelvis W IV Cont ONLY Date of E xam: 12/09/24 Exam# [id number] Ordering Dr: Maru Baker DO PROCEDURE: ABDOMEN/PELVIS [...] of the stomach, probably gastritis. Reading Location: [place] [address] CC: ERIC Starkey; DO Josh Mendoza Corporate Officer: Signed [facility]06-24-2025 Discharge summary [facility] Medical Records Department [address] [place] [address] Emergency Department Summary 12/07/24 MR#: [id number] Acct: [id number] Name: PATRICK KOROMA Rep #:[id number] : 1980 44 From: Guevara Choi MD PCP: ERIC Anaya Status:REG ER Location: ED HPI History of Present Illness Chief Complaint: Upper Extremity Injury Informant: patient Narrative Narrative: [facility] patient states he smashed his right thumb between 2 metal poles on accident. Lfypv-vnfq-orhnpobd. [facility] Medical History Seroma after procedure Influenza [...] Reading Location: [facility] Discharge Plan Triage Chief Complaint: Upper Extremity Injury ED Provider: Guevara Choi Dx/Rx/DC Orders Clinical Impression: Contusion of right thumb with damage to nail, initial encounter Instructions: ED Finger or Toe Contusion Prescriptions: No Action NK Primary Care Provider: Viola Starkey NP Referrals: Viola Starkey NP, FACING MACHINE OPERATOR-C [Primary Care Provider] - 10-14 Days if not better Print Language: Turkish Disposition Disposition: Home, Self Care What to do if you have Problems For any increased pain, shortness of breath, bleeding, nausea or vomiting, chestpain, or any unexpected problems, contact your Primary Care Provider. Call [facility] ([phone]) or report tothe closest Emergency Room. Call 911 if necessary. 12/07/24 0013 Cosigner Signature (if applicable): CC: FACING MACHINE OPERATOR-C Viola Starkey ~ Signed [facility]06-23-2025 Radiology Diagnostic study note [facility] Imaging Services [address] [place] [address] Hand Min 3 Views MR#: [id number] Acct: [id number] Name: PATRICK KOROMA Rep #: [id number] : 1980 M 44 From: Viki Ba MD PCP: ERIC Anaya Status: PRE ER Study:Hand Min 3 Views Date of Exam: Exam# [id number] Ordering Dr: Curtis Choi MD PROCEDURE: HAND MIN 3 VIEWS 12/06/2024 REASON FOR EXAM: INJURY TECHNIQUE: HAND MIN 3 VIEWS COMPARISON: None FINDINGS: No fracture or traumatic malalignment. Joint spaces are predominantly maintained. Bone mineral density is subjectively normal. The soft tissues are unremarkable. RAD/Hand Min 3 Views IMPRESSION: No acute osseous abnormality of the right hand. Reading Location: [id number] CC: FACING MACHINE OPERATOR-Marielos Starkey; Dr. Guevara Choi MD ~ Corporate Officer: Signed [facility]04-06-2025 Discharge summary [facility] Medical Records Department [address] [place] [address] Emergency Department Summary 09/19/24 MR#: [id number] Acct: [id number] Name: PATRICK KOROMA Rep #:[id number] : 1980 44 From: Brian Maldonado MD PCP: ERIC Anaya Status:REG ER Location: ED HPI History of Present Illness Chief Complaint: Upper Extremity Injury Narrative Narrative: 44-year-old male, zehto-aayf-lzxdooui, presents with injury to his right shoulder [...] raise his right arm. Denies other injuries. [facility] Medical History Seroma after procedure Influenza [...] clavicle and shoulder pain worse with movement. Zsibc-vwnx-wnvvqguu. Denies hitting of his head or loss [...] at elbow and below. Const Vital Signs: 04/06/25 21:16 Temperature 97.1 F L Temperature Source [...] AC joint separation. Patient was given 1 Bexar tablet here for analgesia and x-rays obtained [...] not improving. I feel he can take ybvo-uru-stegazn medications for analgesia. Return instructions to the [...] Week if not improving Viola Starkey NP, FACING MACHINE OPERATOR-C [Primary Care Provider] - Activity Restrictions/Additional Instructions: You may wear the sling for comfort but exercise your right shoulder at least 3 times a day to prevent frozen shoulder. Qijq-uxz-ewcwxos medications as needed for pain. Follow-up with orthopedics if not improving. Print Language: Turkish Disposition Disposition: Home, Self Care What to do if you have Problems For any increased pain, shortness of breath, bleeding, nausea or vomiting, chestpain, or any unexpected problems, contact your Primary Care Provider. Call [facility] ([phone]) or report tothe closest Emergency Room. Call 911 if necessary. 09/19/242224 Cosigner Signature (if applicable): CC: ERIC Starkey ~ Signed [facility]04-06-2025 Radiology Diagnostic study note [facility] Imaging Services [address] [facility] [place] [address] Shoulder min 2 Views MR#: [id number] Acct: [id number] Name: PATRICK KOROMA Rep #: [id number] : 1980 M 44 From: Zuly Tena DO PCP: ERIC Anaya Status: REG ER Study:Shoulder min 2 Views Date of Exam: 09/19/24 Exam# [id number] Ordering Dr: Brian Maldonado MD PROCEDURE: SHOULDER MIN 2 VIEWS 09/19/2024 REASON FOR EXAM: TRAUMA TECHNIQUE: 4 view(s) of the right shoulder COMPARISON: None FINDINGS: Bones: No acute fracture. Joints: Normal alignment of the acromioclavicular and glenohumeral joints. Soft tissues: Soft tissues are unremarkable. Other: RAD/Shoulder min 2 Views IMPRESSION: NO ACUTE FRACTURE OR DISLOCATION. Reading Location: [facility] CC: ERIC Starkey; Dr. Brian Maldonado MD ~ Corporate Officer: Signed [facility]04-06-2025 Radiology Diagnostic study note [facility] Imaging Services [address] [place], [place] [id number] Clavicle MR#: [id number] Acct: [id number] Name: PATRICK KOROMA Rep #: [id number] : 1980 M 44 From: Zuly Tena DO PCP: ERIC Anaya Status: REG ER Study:Clavicle Date of Exam: 09/19/24 Exam# [id number] Ordering Dr: Brian Maldonado MD PROCEDURE: CLAVICLE 09/19/2024 REASON FOR EXAM: TRAUMA TECHNIQUE: Two views of the right clavicle were obtained COMPARISON: None FINDINGS: Bones: No acute fracture. Joints: Joint spaces are preserved. Soft tissues: No soft tissue abnormality. RAD/Clavicle IMPRESSION: NO EVIDENCE OF CLAVICLE FRACTURE Reading Location: [facility] CC: ERIC Starkey; Dr. Brian Maldonado MD ~ Corporate Officer: Signed [facility]04-06-2025 Discharge summary Author Brian Maldonado [facility] Note Date/Time September 19, 2024 10:2 5pm [facility] Medical Records Department [address] [place] [address] Emergency Department Summary 09/19/24 MR#: [id number] Acct: [id number] Name: PATRICK KOROMA Rep #:[id number] : 1980 44 From: Brian Maldonado MD PCP: ERIC Anaya Status:REG ER Location: ED HPI History of Present Illness Chief Complaint: Upper Extremity Injury Narrative Narrative: 44-year-old male, gcpbu-cznf-iudzybnf, presents with injury to his right shoulder [...] raise his right arm. Denies other injuries. [facility] Medical History Seroma after procedure Influenza [...] clavicle and shoulder pain worse with movement. Oxtnl-bwmk-bpdtnxii. Denies hitting of his head or loss [...] AC joint separation. Patient was given 1 Bexar tablet here for analgesia and x-rays obtained [...] not improving. I feel he can take mksu-hcm-anacfib medications for analgesia. Return instructions to the [...] Week if not improving Viola Starkey NP, FACING MACHINE OPERATOR-C [Primary Care Provider] - Activity Restrictions/Additional Instructions: You may wear the sling for comfort but exercise your right shoulder at least 3 times a day to prevent frozen shoulder. Urdw-oep-nbbchac medications as needed for pain. Follow-up with orthopedics if not improving. Print Language: Turkish Disposition Disposition: Home, Self Care What to do if you have Problems For any increased pain, shortness of breath, bleeding, nausea or vomiting, chestpain, or any unexpected problems, contact your Primary Care Provider. Call [facility] ([phone]) or report to the closest Emergency Room. Call 911 if necessary. 09/19/242224 <Electronically signed by Brian Maldonado MD> Cosigner Signature (if applicable): CC: FACING MACHINE OPERATOR-Marielos Starkey ~ Signed [facility] Work Phone: 1(179) 141-863703-11-2025 Radiology Diagnostic study note [facility] Imaging Services [address] [place] [address] Shoulder min 2 Views MR#: [id number] Acct: [id number] Name: PATRICK KOROMA Rep #: [id number] : 1980 M 44 From: Shahbaz Johnson DO PCP: Care Physician,No Primary Status: PRE ER Study:Shoulder min 2 Views Date of Exam: 08/24/24 Exam# [id number] Ordering Dr: Provider ,Ed P. PROCEDURE: Right shoulder radiographs REASON FOR EXAM: PAIN, LOSS OF MOBILITY TECHNIQUE: Four views of the right shoulder COMPARISON: None. FINDINGS: See impression RAD/Shoulder min 2 Views IMPRESSION: Negative for acute fracture or malalignment. 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 Mildacromioclavicular joint osteoarthritis. Reading Location: [facility] CC: ED PHYSICIAN PROVIDER; No Primary Care Physician ~ Corporate Officer: Signed [facility]02-28-2025 History of Present illness Narrative* Stephon [...] <40). Stephon Benavides MD documented in this [facility] Work Phone: 1(942) 564-379801-14-2025 History of Present illness Narrative* Jonathan Gonzalez MD - 06/29/2024 2:45 PM EST History Of Present Illness : Patrick Cali is a 44 y.o. male who presents as a self-referral for second opinion with regard to his abdominal wall. The patient lives in [facility]. The patient has had multiple abdominal operations in the past. He had a laparoscopic appendectomy in 2000 in [place]. He thereafter had 3 operations for abdominal wall hernias by Dr. Aaron Duque at [facility]. In 2016 and 2018, he underwent [...] abdomen pelvis was in May 09 at [facility] in [place]. The patient has noted recurrent fullness in the mid abdomen, with associated sharp pain especially at night, since March 2024.. He denies other symptoms such as nausea vomiting diarrhea constipation changes bowel habits or blood in the stool. Patient is engaged to be to [employer] who accompanied him to the office. He has 4 children. 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 The patient [...] Not Present- Headaches, Numbness, Tingling, Seizures, Stroke, NEWSPAPER VENDOR Shunt and Weakness. Psychiatric: Not Present- Anxiety, [...] recommendations and management plan documented in this [facility] Work Phone: 1(347) 600-228512-02-2024 Hospital Discharge instructions Patient Education 05/16/2024 22:58:38 [...] or as directed by your healthcare provider [phone] [employer]. [address] [place] [address]. All rights reserved. This information is not intended as a substitute for professional medical care. Always follow yourhealthcare professional's instructions. Follow Up Care 05/16/2024 21:33:35 With:AARON DUQUE MD, Surgery Address: [address] [place], [place] [phone] When:2-4 days [facility] 12-01-2024 Emergency department Discharge summary Discharge Instructions Thank you for allowing [facility] to assist you with your healthcare needs. [...] DUQUE MD, Surgery When:Within 2-4 days Where:[address] [place] [phone] Allergies Keflex Keppra Rash Tape, Paper Rash [...] or as directed by your healthcare provider [phone] [employer]. [address] [place] [address], [place] [address]. All rights reserved. This information is not intended as a substitute for professional medical care. Always follow yourhealthcare professional's instructions. Additional Information VACCINATE! IT SAVES LIVES! Members of the community who have not yet received the COVID-19 vaccine and would like to receive it can visit one of [facility] vaccine clinics. There are many vaccine clinic locations within the [facility]. For locations and available times, please visit [email or web address]/. It is important to note that some COVID mobile vaccine clinics are held outdoors and may be canceled in rainy or stormy conditions. To learn more about pediatric vaccinations (ages 5-11), we invite you to visit the [employer] webpage. [email or web address]://[email or web address]/[email or web address]-[email or web address]-[email or web address]-[email or web address]-Hkd stions.htmlTo learn more about the COVID-19 vaccine, we invite you to visit the CDC website for a list of frequently asked questions. https://www.cdc.gov/coronavirus/2019-ncov/vaccines/faq.html [facility] Patient Portal Access Instructions: Stay connected with your healthcare team and access your personal medical information anytime with the [facility] Patient Portal. If you would like a full copy of your medical records please contact the [facility] Medical Records Department Friday through Friday between 8a.m. and 4:30p.m. Please follow the directions below to access the portal: 1.Access the email account you provided upon registration to the hospital.2.Look for an invitation email from [facility].3.Open the email and access the invitation link: Accept Invitation to [facility]4.Fill in the required vegas to create your account. Sign into [email or web address].Abigail Stewart with your username and password that you [...] you will allow to register on the [facility] Patient Portal for access to your information. You can also access the [facility] Patient Portal on the [employer]. Simply click on Health Records under PhoneTell and then click on the [facility] [facility] logo. HOW TO SAFELY DISPOSE OF PRESCRIPTION [...] Call your local pharmacy or go to [email or web address] to find one close to you.3.Make use of household items: Use cat litter or old coffee grounds to dispose medications if other options arenot available. Mix your drugs with these household products, seal them in an airtight container andthrow it into the garbage. Call [facility]: [phone] to be sure your drugs can be [...] aware that I should contact my doctor. Patient/Auxiliary Equipment Tender Signature: Date/Time: Relationship to Patient: Witness Name/Signature: Date/Time: [facility]12-01-2024 Emergency department Discharge summary Discharge Instructions Thank you for allowing [facility] to assist you with your healthcare needs. [...] DUQUE MD, Surgery When:Within 2-4 days Where:[address] [facility] [place] [address]- [phone] Allergies Keflex Keppra Rash Tape, Paper Rash [...] or as directed by your healthcare provider [phone] [employer]. [address] [place] [address]. All rights reserved. This information is not intended as a substitute for professional medical care. Always follow yourhealthcare professional's instructions. Additional Information VACCINATE! IT SAVES LIVES! Members of the community who have not yet received the COVID-19 vaccine and would like to receive it can visit one of [facility] vaccine clinics. There are many vaccine clinic locations within the [facility]. For locations and available times, please visit www.gettheshot.[email or web address].[place].gov/. It is important to note that some COVID mobile vaccine clinics are held outdoors and may be canceled in rainy or stormy conditions. To learn more about pediatric vaccinations (ages 5-11), we invite you to visit the [facility] webpage. https://www.[facility].org/pages/6135-Ahdsh-Xaamyjzvahc-Whbvmtlosd-Ddzpu-Kdz stions.htmlTo learn more about the COVID-19 vaccine, we invite you to visit the CDC website for a list of frequently asked questions. https://www.cdc.gov/coronavirus/2019-ncov/vaccines/faq.html [facility] Patient Portal Access Instructions: Stay connected with your healthcare team and access your personal medical information anytime with the [facility] Patient Portal. If you would like a full copy of your medical records please contact the [facility] Medical Records Department Friday through Friday between 8a.m. and 4:30p.m. Please follow the directions below to access the portal: 1.Access the email account you provided upon registration to the [facility].2.Look for an invitation email from [facility].3.Open the email and access the invitation link: Accept Invitation to [facility]4.Fill in the required vegas to create your account. Sign into www.Abigail Stewart with your username and password that you [...] you will allow to register on the [facility] Patient Portal for access to your information. You can also access the [facility] Patient Portal on the [employer]. Simply click on Health Records under PhoneTell and then click on the [facility] logo. HOW TO SAFELY DISPOSE OF PRESCRIPTION [...] Call your local pharmacy or go to http://bit.[facility]/2J6Ux1t to find one close to you.3.Make use of household items: Use cat litter or old coffee grounds to dispose medications if other options arenot available. Mix your drugs with these household products, seal them in an airtight container andthrow it into the garbage. Call [facility]: [phone] to be sure your drugs can be [...] aware that I should contact my doctor. Patient/Auxiliary Equipment Tender Signature: Date/Time: Relationship to Patient: Witness Name/Signature: Date/Time: [facility]12-01-2024 Note ORIGINAL EXAMINATION: CT OF THE ABDOMEN [...] Sign Date: 05/16/2024 10:27:09 PM Ordering Provider: [facility]05-07-2024 Telephone encounter Note* Telephone Encounter - [...] Dr. Hannah. Christy Rodrigez RN BSN Nurse Special Agent [employer] [facility] Work Phone: [phone]) 985-399005-07-2024 Miscellaneous Notes* Telephone Encounter - Christy Rodrigez [...] Dr. Hannah. Christy Rodrigez RN BSN Nurse Special Agent [employer] * Telephone Encounter - Christy Rodrigez RN - 10/10/2023 10:21 AM EDT Neuro SPINE CARE COORDINATION QUICK NOTE Dr. Borrero received referral from Dr. Richardson. Ordered placed for spine med injection with Dr. Hannah. Called patient to advise. Received VM message 'calling restrictions that have prevented the completion of the call' MYC message sent. Christy Rodrigez RN BSN Nurse Special Agent [employer] documented [facility] Telephone encounter Note * Telephone Encounter - Christy Rodrigez RN - 10/10/2023 10:21 AM EDT Neuro SPINE CARE COORDINATION QUICK NOTE Dr. Borrero received referral from Dr. Richardson. Ordered placed for spine med injection with Dr. Hannah. Called patient to advise. Received VM message 'calling restrictions that have prevented the completion of the call' MYC message sent. Christy Rodrigez RN BSN Nurse Special Agent [employer] [facility]04-02-2024 History and physical note* Diana Graham PA-C [...] requiring medication, no history of angina, CHF, NE, cardiac surgery or stents. Denies rest pain, [...] 362 QTC Calculation (Bazett) 457 Calculated P Adah 30 Calculated R Adah 19 Calculated T Adah 18 Impression NORMAL SINUS RHYTHM NORMAL ECG No results found for this or any previous visit (from the past 34209 hour(s)). Instructions Given to Patient: Instructions located in the after visit summary. Patient given verbal and written preop instructions and voices comprehension and compliance. SIGNATURE: Diana Graham PA-C PATIENT NAME: Patrick Koroma DATE: September 15, 2023 TIME: 1:59 PM PAGER/CONTACT #: documented in this encounterTr[facility]04-01-2024 Instructions* Patient Instructions* Diana Graham PA-C - 09/15/2023 1:58 PM EDT PATIENT PREOPERATIVE INSTRUCTIONS Jese Richardson* has scheduled you for your procedure at this surgery center: [facility] [place] Scheduling Office: [phone] --[address] [place] [address]. Please read below carefully for your personalized [...] Procedures: - YOU MUST HAVE A RESPONSIBLE PERFORMANCE ENGINEER TAKE YOU HOME. A POTABLE WATER TREATMENT OPERATOR OR HEBREW PROFESSOR CANNOT BE MADE A RESPONSIBLE PERFORMANCE ENGINEER. - We recommend that a responsible person [...] call the Friday before. Your surgeon s outpatient scheduler will tell you what time to call the office. - If you have not reached the departmental outpatient scheduler by 5 P.M., call [phone] after 5 P.M. the day before your surgery. Please be aware that emergency situations arise, which may delay or change your surgical time. If this happens, we will notify you as soon as possible and regret any inconvenience. If you already have an Advance Directive, please fax a copy to [phone] or email to for it to be [...] day. Diana Graham PA-C documented in this encounterTr[facility]03-28-[facility]24 Hospital Discharge instructions Patient Education 09/11/2023 18:40:07 [...] foods again, start with small amounts of lkbl-tg-wslvlp, low- fat foods. These include apple sauce, [...] increase stomach acid. Don't use aspirin or dgwx-dwn-gzprjgj pain and fever medicines, if possible. This includes nonsteroidal anti-inflammatory drugs (NSAIDs). Lose excess weight. Finish eating at least 2 hours before you go to bed or lie down. Raise the head of your bed. 4755-3897 [employer]. [address] [place] [address]. All rights reserved. This information is not intended as a substitute for professional medical care. Always follow yourhealthcare professional's instructions. Follow Up Care 09/11/2023 18:01:14 With:VIOLA STARKEY Address: [address] [place] [phone]- [phone] When:2-4 days [facility] 03-28-2024 Note Discharge Instructions Thank you for allowing [facility] to assist you with your healthcare needs. The following is importantdischarge information regarding your hospital visit. Diagnosis from Today's Visit Abdominal pain Abdominal pain What to Do Next Instructions from Your Care Team No qualifying data available. Post Acute Orders No qualifying data available. You Need to Schedule the Following Appointments Follow Up with VIOLA STARKEY When Within 2-4 days Where: [address] [place] [phone] Allergies Keflex Keppra (Rash) Tape, Paper (Rash) [...] foods again, start with small amounts of dpki-pk-yeeovq, low- fat foods. These include apple sauce, [...] increase stomach acid. Don't use aspirin or jqwk-emf-zfzigtf pain and fever medicines, if possible. This includes nonsteroidal anti-inflammatory drugs (NSAIDs). Lose excess weight. Finish eating at least 2 hours before you go to bed or lie down. Raise the head of your bed. 6686-8101 [employer]. [address] [place] [address], [place] [address]. All rights reserved. This information is not intended as a substitute for professional medical care. Always follow yourhealthcare professional's instructions. Additional Information VACCINATE! IT SAVES LIVES! Members of the community who have not yet received the COVID-19 vaccine and would like to receive it can visit one of [facility] vaccine clinics. There are many vaccine clinic locations within the [facility]. For locations and available times, please visit www.[email or web address].gov/. It is important to note that some COVID mobile vaccine clinics are held outdoors and may be canceled in rainy or stormy conditions. To learn more about pediatric vaccinations (ages 5-11), we invite you to visit the [facility] webpage. https://www.[facility].org/pages/6203-Bilpt-Znpehcluire-Rdmbqdwiwi-Dupbw-Cyh stions.htmlTo learn more about the COVID-19 vaccine, we invite you to visit the CDC website for a list of frequently asked questions. https://www.cdc.gov/coronavirus/2019-ncov/vaccines/faq.html [facility] Patient Portal Access Instructions: Stay connected with your healthcare team and access your personal medical information anytime with the [facility] Patient Portal. If you would like a full copy of your medical records please contact the [facility] Medical Records Department Friday through Friday between 8a.m. and 4:30p.m. Please follow the directions below to access the portal: 1.Access the email account you provided upon registration to the hospital.2.Look for an invitation email from [facility].3.Open the email and access the invitation link: Accept Invitation to [facility]4.Fill in the required vegas to create your account. Sign into www.Abigail Stewart with your username and password that you [...] you will allow to register on the [facility] Patient Portal for access to your information. You can also access the [facility] Patient Portal on the [employer] yen. Simply click on Health Records under SRCH2Data and then click on the [facility] logo. HOW TO SAFELY DISPOSE OF PRESCRIPTION [...] Call your local pharmacy or go to http://bit.ly/2N8Js5i to find one close to you.3.Make use of household items: Use cat litter or old coffee grounds to dispose medications if other options arenot available. Mix your drugs with these household products, seal them in an airtight container andthrow it into the garbage. Call [facility]: [phone] to be sure your drugs can be [...] aware that I should contact my doctor. Patient/Auxiliary Equipment Tender Signature: Date/Time: Relationship to Patient: Witness Name/Signature: Date/Time: [facility]03-13-2024 Evaluation + Plan noteExtracted from: Title:Clinical Document Author:REYES MOORE ate:08/27/23 [place] ADMISSION HISTORY AN D PHYSICIAL CHIEF COMPLAINT: Colorectal cancer screening HISTORY OF PRESENT ILLNESS: Colorectal cancer screening, high risk, family history of colon cancer REVIEW OF SYSTEMS: Constitutional: denies weight loss Cardiovascular:denies chest pain, palpitations Respiratory:denies shortness of breath Gastrointestinal:no abd pain Musculoskeletal: no arthralgias Skin: no rashes ACTIVE PROBLEMS: (13) Acid reflux (356380220) 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 ([id number]) Electric shock (8796207551) Fall (6550165) Family history of colon cancer (102369565) Full dentures (010000238) Pain in the abdomen (14163136) Postprocedural hematoma of skin and subcutaneous tissue following other procedure (568740094) Screening for colon cancer (504159879) Seizure (291913216) TIA (639763723) Tobacco use (3543093629) Umbilical hernia (2394587927) MEDICATIONS: Active Inpt Meds: None Active PRN [...] IgG 08/07/23 * Complete Metabolic Panel 08/07/[address] [facility] 03-13-2024 Hospital Discharge instructions Patient Education 08/27/2023 [...] before eating solid foods. General instructions Take mfqw-yiv-wxjwhks and prescription medicines only as told by [...] 09/22/2016 Document Revised: 08/31/2018 Document Reviewed: 09/22/2016 [employer] Patient Education 2020 [employer]. 08/27/2023 10:26:35 Colonoscopy, Adult, Care After Colonoscopy, [...] a slower pace than normal. ?Eat soft, ukof-ai-ezfhko foods. Take xxhm-lly-pljcdot or prescription medicines only as told by [...] 01/14/2005 Document Revised: 03/25/2018 Document Reviewed: 08/13/2016 [employer] Patient Education Inf[employer]. Follow Up Care 08/22/2023 07:36:51 With:REYES MOORE DO, Clinical Gastroenterology Address: [address] [place] [phone]- [phone] When:Within 1 Year(s) Comments:Repeat colonoscopy in 1 year. Will need extra bowel prep. With:VIOLA STARKEY Address: [address] [place] [phone]- [phone] When: Unknown [facility] 03-13-2024 Note Discharge Instructions Thank you for allowing [facility] to assist you with your healthcare needs. The following is importantdischarge information regarding your hospital visit. Your Care Team VIOLA STARKEY Dr. What to do next Instructions From Your Doctor Colonoscopy in 1 year; will need further given residual stool this year Follow Up Appointments Follow Up with REYES MOORE DO Clinical Gastroenterology When In 1 year Why: Repeat colonoscopy in 1 year. Will need extra bowel prep. Where: [address] [place] [phone] Follow Up with VIOLA STARKEY When Where: [address] [place] [phone]- [phone] The Following Activity and Diet Have Been [...] before eating solid foods. General instructions Take cjph-nso-ahhieji and prescription medicines only as told by [...] 09/22/2016 Document Revised: 08/31/2018 Document Reviewed: 09/22/2016 [employer] Patient Education 2020 [employer]. Colonoscopy, Adult, Care After This sheet gives [...] slower pace than normal. ? Eat soft, cxeq-xc-exfrxr foods. Take eied-wly-aqpyrnc or prescription medicines only as told by [...] 01/14/2005 Document Revised: 03/25/2018 Document Reviewed: 08/13/2016 [employer] Patient Education 2020 [employer] Additional Information VACCINATE! IT SAVES LIVES! Members of the community who have not yet received the COVID-19 vaccine and would like to receive it can visit one of [facility] vaccine clinics. There are many vaccine clinic locations within the [facility]. For locations and available times, please visit [email or web address]/. It is important to note that some COVID mobile vaccine clinics are held outdoors and may be canceled in rainy or stormy conditions. To learn more about pediatric vaccinations (ages 5-11), we invite you to visit the [facility] webpage. https://www.[facility].org/pages/5912-Tjzcp-Vmaiuavmcuy-Umnvcjztab-Udkbe-Sfi stions.htmlTo learn more about the COVID-19 vaccine, we invite you to visit the CDC website for a list of frequently asked questions.https://www.cdc.gov/coronavirus/2019-ncov/vaccines/faq.html [facility] Patient Portal Access Instructions: Stay connected with your healthcare team and access your personal medical information anytime with the [facility] Patient Portal. Please follow the directions below to create your [facility] account: 1.Access the email account you provided upon registration to the hospital/physician office.2.Look for an invitation email from [facility].3.Open the email and access the invitation link: AcceptInvitation to [facility].4.Fill in the required vegas to create your account. To access your account, visit Abigail [email or web address]. Click the blue button labeled Access Patient [...] who you will allowto register on the [facility] Patient Portal for access to your information. You can also access the [facility] Patient Portal on the [facility] yen. Simply click on Patient Portal and then log into your account. If you would like to receive a full copy of your medical records, please contact the [facility] Medical Records Department by calling [phone], Friday through Friday between 8 a.m. and [...] Call your local pharmacy or go to http://Ticketbud.[facility]/2U6Sk7s to find one close to you.3.Make use of household items: Use cat litter or old coffee grounds to dispose medications if other options arenot available. Mix your drugs with these household products, seal them in an airtight container andthrow it into the garbage. Call [facility]: [phone] to be sure your drugs can be [...] aware that I should contact my doctor. Patient/Auxiliary Equipment Tender Signature: Date/Time: Relationship to Patient: Witness Name/Signature: Date/Time: [facility]03-13-2024 Anesthesiology Consult note Patient: PATRICK KOROMA Age: 43 years Sex: Male : 1980 Associated Diagnoses: None Author: DARIEL HITCHCOCK APRN-INTERNET DESIGNER Assessment Postanesthesia assessment Vitals: Vital signs from [...] by DARIEL HITCHCOCK on 08/27/2023 10:18 AM [facility]03-13-2024 Anesthesiology Consult note Patient: PATRICK KOROMA Age: [...] Pain in the abdomen / SNOMED CT 83090513 / Confirmed Acid reflux / SNOMED CT 239452148 / Confirmed 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 / SNOMED CT [id number] / Confirmed Fall / SNOMED CT 6200846 / Confirmed Family history of colon cancer / SNOMED CT 256030129 / Confirmed Electric shock / SNOMED CT 5826723408 / Confirmed Full dentures / SNOMED CT 482320311 / Confirmed Screening for colon cancer / SNOMED CT 008776696 / Confirmed Postprocedural hematoma of skin and subcutaneous tissue following other procedure / SNOMED CT 626116441 / Confirmed Seizure / SNOMED CT 887483913 / Confirmed TIA / SNOMED CT 347115753 / Confirmed Umbilical hernia / SNOMED CT 7971032565 / Confirmed, Active Problems (13) Acid reflux 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 Electric shock Fall Family history of colon cancer Full dentures Pain in the abdomen Postprocedural hematoma of skin and subcutaneous tissue following other procedure Screening for colon cancer Seizure TIA Tobacco use Umbilical hernia Histories Past Medical History: Active TIA (048809177) Acid reflux (140498538) Seizure (638362605) Family History: Suicide Brother Congenital heart disease Brother Alcohol abuse Father () Stroke Mother Father () Diabetes Father () Colon cancer Father () Procedure history: Laparoscopic repair of recurrent umbilical hernia using synthetic mesh (1864132840) on 07/18/2022 at 42 Years. Comments: 07/23/2022 11:02 Leslie Quintana LPN OPEN REPAIR OF RECURRENT PERIUMBILICAL HERNIA WITH ANTERIOR COMPONENT SEPARATION WITH ONLAY MESH REPAIR Repair of recurrent ventral hernia (228415691) on 11/22/2021 at 41 Years. History of repair of umbilical hernia (7833896496) in 2019 at 39 Years. Appendectomy (310761797). Drain (84797252). 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 Tobacco 08/27/2023isk Assessment: High Risk 08/27/2023 Tobacco Use: 5-9 [...] Signs(last 24 hrs) Last Charted Heart Rate Kfearsjtw22 bpm (AUG 26 09:40) TGS287 mmHg (AUG 26 09:46) DBPH 93mmHg (AUG 26 09:46) BMI42.04 (AUG 26 09:40) Measurements from flowsheet : Measurements 08/27/2023 9:40 EDT Height 184.5 cm Admission Weight 143.1 kg Weight Method Stated [place] Body Weight 79.07 kg BSA Admission 2.6 [...] Surgeon SN - CAt - Role Performed INTERNET DESIGNER SN - CAt - Role Performed Hot Roll Laminator 1 SN - CAt - Role Performed [...] Quadrants Present Skin Temperature Warm Skin Description [place], Dry Skin Integrity Intact Skin Moisture General [...] Allergies Yes Anesthesia Extension Set Applied Yes Administrative Supervisor On Yes Colon Prep Results Good Consent [...] Person #1 We May Share RAINE Meyer [phone] Designated Person #1 Relationship Significant other Designated Person #2 We May Share RAINE Almeida [phone] Designated Person #2 Relationship Mother Privacy Restrictions Requested None Height 184.5 cm Admission Weight 143.1 kg Weight Method Stated [place] Body Weight 79.07 kg BSA Admission 2.6 [...] Method Explanation, Printed materials Preferred Spoken Language Turkish Preferred Written Language Turkish Information Given by Patient Patient's Current Physicians [...] Safety In Error (In Error) 08/27/2023 7:00 [facility] History and Physical . Assessment and Plan [place] Society of Anesthesiologists (ASA) physical status classification: Class III. Anesthetic Preoperative Plan Anesthetic technique: MAC. Informed consent: signed by patient. 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 ([id number]-[id number]) Electric shock (9890719052) Fall (9086623) Family history of colon cancer (934265568) Full dentures (476458630) Pain in the abdomen (24547050) Postprocedural hematoma of skin and subcutaneous tissue following other procedure (765720325) Screening for colon cancer (727749732) Seizure (663507196) TIA (929571274) Tobacco use (5548534936) Umbilical hernia (1590507206) MEDICATIONS: Active Inpt Meds: None Active PRN [...] REYES MOORE DO on 08/27/2023 07:01 AM [facility]02-22-2024 Evaluation + Plan note Future Scheduled Tests Laboratory* Thyroid Stimulating Hormone 08/07/23 * Complete Blood Count 08/07/23 * Lipid Profile 08/07/23 * Hepatitis C Antibody IgG 08/07/23 * Complete Metabolic Panel 08/07/23 [facility] 02-21-2024 NoteHNO ID: [id number] Author: KELLEY MERAZ APRN.BERT, [place] Service: ? 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 He was referred by Linda Griffiths CNP (General Surgery) [address] [place] [address]. This consultation was shared with the referral source via the [facility] electronic medical record. The patient understanding of [...] activity was identified. 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 He was referred by Linda Griffiths CNP (General Surgery) [address] [place] [address]. This consultation was shared with the referral source via the [facility] electronic medical record. The patient understanding of [...] suspiciousactivity was identified. 08/06/2023 by Kelley Meraz APRN.IN CLASS SPECIAL EDUCATION TEACHER, DNP Functional Limitations: The patient has been [...] denied CHF: denied Uncontrolled HTN: denied Recent NE: denied Arrythmias: denied Afib: denied Hyperthyroid: denied [...] He served a totalof 6 years in assisted. He dropped out in the 12th grade due to heart attack. Got his GED. 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 [...] which included preparing to see the patient, qjyb-jx-elhe patient care, completing clinical documentation, obtaining and/or reviewing separately obtained history, performing a medically appropriate examination, counseling and educating the pat ient/family/caregiver, and ordering medications, tests, or procedures. Kelley Meraz APRN.ALMA NOEL [facility]24 NoteHNO ID: [id number] Author: JESE RICHARDSON MD Service: ? Author [...] our notes. Patient consented for [facility]? [facility] NoteHNO ID: [id number] Author: VIVIANA TERESA MD Service: ? Author Type: Fellow Type: Progress Notes Filed: 07/07/2023 09:35 Note Text: [facility] - HISTORY AND PHYSICAL Chief Complaint: pain to the left of the hernia repair HPI: Patrick Koroma is a 43 year old male with PMH post traumatic seizure disorder, s/p appendectomy and multiple hernia repair who presents with pain lateral to the hernia repair site On 11/22/21 he had a robotic assisted repair of recurrent ventral hernia at [facility] with Dr Aaron Duque with removal of [...] intervention needed. Mostly neuropathic pain Viviana Teresa, [facility]01-18-2024 Note. MICRO - Microbiology PROCEDURE: Blood Culture [...] Locations *1: This test was performed at: [address], [facility]- , [facility] ([place])07-03-2023 Note. MICRO - Microbiology PROCEDURE: Blood Culture [...] Locations *1: This test was performed at: [address] [place], [address]- [facility])07-01-2023 Note. MICRO - Microbiology PROCEDURE: Urine Culture [...] Locations *1: This test was performed at: [address], [address]- [facility] ([place])06-28-2023 Hospital Discharge instructions Patient Education 06/28/2023 16:03:23 [...] that gets worse Trouble urinating Constipation Vomiting [phone] [employer]. [address] [place] [address]. All rights reserved. This information is not intended as a substitute for professional medical care. Always follow yourhealthcare professional's instructions. Follow Up Care 06/28/2023 13:49:11 With:AARON DUQUE MD, Surgery Address: [address] [place] [address]- [phone] When:2-4 days With:[facility] Address: [address] [place] [phone]- [phone] When:2-4 days [facility] 01-13-2024 Note Discharge Instructions Thank you for allowing [facility] to assist you with your healthcare needs. [...] Surgery When Within 2-4 days Where: [address] [place] [address] [phone] Follow Up with [facility] When Within 2-4 days Where: [address] [place] [phone] Allergies Keflex Keppra (Rash) Tape, Paper (Rash) [...] that gets worse Trouble urinating Constipation Vomiting [phone] [employer]. [address] [place] [address], [place] [address]. All rights reserved. This information is not intended as a substitute for professional medical care. Always follow yourhealthcare professional's instructions. Additional Information VACCINATE! IT SAVES LIVES! Members of the community who have not yet received the COVID-19 vaccine and would like to receive it can visit one of [facility] vaccine clinics. There are many vaccine clinic locations within the [facility]. For locations and available times, please visit www.[email or web address].[place].gov/. It is important to note that some COVID mobile vaccine clinics are held outdoors and may be canceled in rainy or stormy conditions. To learn more about pediatric vaccinations (ages 5-11), we invite you to visit the [facility] webpage. https://www.[facility].org/pages/2422-Ykspl-Yinktubiulx-Omqxtsffnb-Oznla-Lht stions.htmlTo learn more about the COVID-19 vaccine, we invite you to visit the CDC website for a list of frequently asked questions. https://www.cdc.gov/coronavirus/2019-ncov/vaccines/faq.html [facility] Patient Portal Access Instructions: Stay connected with your healthcare team and access your personal medical information anytime with the [facility] Patient Portal. If you would like a full copy of your medical records please contact the [facility] Medical Records Department Friday through Friday between 8a.m. and 4:30p.m. Please follow the directions below to access the portal: 1.Access the email account you provided upon registration to the hospital.2.Look for an invitation email from [facility].3.Open the email and access the invitation link: Accept Invitation to [facility]4.Fill in the required vegas to create your account. Sign into www.Abigail Stewart with your username and password that you [...] you will allow to register on the [facility] Patient Portal for access to your information. You can also access the [facility] Patient Portal on the [employer] yen. Simply click on Health Records under PhoneTell and then click on the [facility] logo. HOW TO SAFELY DISPOSE OF PRESCRIPTION [...] Call your local pharmacy or go to http://[email or web address].[facility] [facility] [employer]/[email or web address] to find one close to you.3.Make use of household items: Use cat litter or old coffee grounds to dispose medications if other options arenot available. Mix your drugs with these household products, seal them in an airtight container andthrow it into the garbage. Call [facility]: [phone] to be sure your drugs can be [...] aware that I should contact my doctor. Patient/Auxiliary Equipment Tender Signature: Date/Time: Relationship to Patient: Witness Name/Signature: Date/Time: [facility]01-13-2024 Note ORIGINAL EXAMINATION: CT OF THE ABDOMEN [...] Date: 06/28/2023 4:25:43 PM Ordering Provider[facility] Evaluation + Plan note Diagnostic Tests Pending * Urine Culture 06/28/23 [facility] 12-24-2023 Hospital Discharge instructions Patient Education 06/08/2023 [...] foods again, start with small amounts of oceh-up-uyxcyo, low- fat foods. These include apple sauce, [...] increase stomach acid. Don't use aspirin or udap-hqb-kpsieei pain and fever medicines, if possible. This includes nonsteroidal anti-inflammatory drugs (NSAIDs). Lose excess weight. Finish eating at least 2 hours before you go to bed or lie down. Raise the head of your bed. 3740-8983 [employer]. [address] [place] [address], [place] [address]. All rights reserved. This information is not intended as a substitute for professional medical care. Always follow yourhealthcare professional's instructions. Follow Up Care 06/08/2023 17:37:31 With:Follow up with primary care provider Address:Unknown When:2-4 days [facility] 12-24-2023 Note Discharge Instructions Thank you for allowing [facility] to assist you with your healthcare needs. [...] to receive it can visit one of [facility] vaccine clinics. There are many vaccine clinic locations within the [facility]. For locations and available times, please visit www.gettheshot.coronavirus.[place].gov/. It is important to note that some COVID mobile vaccine clinics are held outdoors and may be canceled in rainy or stormy conditions. To learn more about pediatric vaccinations (ages 5-11), we invite you to visit the [facility] webpage. https://www.[facility].org/pages/1452-Gmrdt-Sqxlmmtbhjk-Wgjuzwlivp-Ppmdo-Aan stions.htmlTo learn more about the COVID-19 vaccine, we invite you to visit the CDC website for a list of frequently asked questions. https://www.cdc.gov/coronavirus/2019-ncov/vaccines/faq.html [facility] Patient Portal Access Instructions: Stay connected with your healthcare team and access your personal medical information anytime with the [facility] Patient [facility]. If you would like a full copy of your medical records please contact the [facility] Medical Records Department Friday through Friday between 8a.m. and 4:30p.m. Please follow the directions below to access the portal: 1.Access the email account you provided upon registration to the [facility].2.Look for an invitation email from [facility].3.Open the email and access the invitation link: Accept Invitation to [facility]4.Fill in the required vegas to create your account. Sign into [email or web address] with your username and password that you [...] you will allow to register on the [facility] Patient Portal for access to your information. You can also access the [facility] Patient Portal on the [employer] yen. Simply click on Health Records under PhoneTell and then click on the Brett logo. HOW TO SAFELY DISPOSE OF PRESCRIPTION [...] Call your local pharmacy or go to http://bit.[facility] [employer]/0D0Yg0n to find one close to you.3.Make use of household items: Use cat litter or old coffee grounds to dispose medications if other options arenot available. Mix your drugs with these household products, seal them in an airtight container andthrow it into the garbage. Call [facility]: [phone] to be sure your drugs can be [...] aware that I should contact my doctor. Patient/Auxiliary Equipment Tender Signature: Date/Time: Relationship to Patient: Witness Name/Signature: Date/Time: [facility]12-02-2023 Hospital Discharge instructions Patient Education 05/16/2023 23:04:20 AA Blank DI (CUSTOM) Result type:CT Abd/Pelvis w/ IV Contrast Only Result date:May 16, 2023 21:13 EST Result status:Auth (Verified) Result title:CT ABD/PELVIS W/ IV CONTRAST ONLY Performed by:CARLO LUKE MD on May 16, 2023 21:06 EST Cosigned by:ZOILA MABRY DO Verified by:CARLO LUKE MD on May 16, 2023 21:13 EST Encounter info:[id number], [facility] [place], Emergency, 05/16/2023 - Contributor system:VersionOne * Final Report * [id number] ORIGINAL EXAMINATION: CT OF THE ABDOMEN AND [...] 06/02/2006 Document Revised: 05/19/2013 Document Reviewed: 06/03/2014 [facility] Patient Information 2015 [facility] [employer] [facility]. This information is not intended [...] blue color of the hand or foot 3499-2537 [employer]. [address] [place] [address]. All rights reserved. This information is not [...] confusion Fainting or loss of consciousness Seizure 4590-9094 [employer]. [address] [place] [address]. All rights reserved. This information is not [...] foods again, start with small amounts of todx-hk-aefznr, low- fat foods. These include apple sauce, [...] increase stomach acid. Don't use aspirin or tiqk-rtd-trmfqeu pain and fever medicines, if possible. This includes nonsteroidal anti-inflammatory drugs (NSAIDs). Lose excess weight. Finish eating at least 2 hours before you go to bed or lie down. Raise the head of your bed. 5684-4702 [employer]. [address] [place] [address], [place] [address]. All rights reserved. This information is not intended as a substitute for professional medical care. Always follow yourhealthcare professional's instructions. Follow Up Care 05/16/2023 20:02:25 With:Go to emergency room if symptoms worsen Address:Unknown When:2-4 days With:Follow up with primary care provider Address:Unknown When:2-4 days [facility] 12-01-2023 Note ORIGINAL EXAMINATION: CT OF THE [...] Date: 05/16/2023 10:45:51 PM [facility] Discharge instructions Patient Education 02/12/2023 [...] chest, arm, back, neck or jaw pain 2516-[address] [employer] [place] [address]. All rights reserved. This information is not intended as a substitute for professional medical care. Always follow yourhealthcare professional's instructions. Follow Up Care 02/12/2023 17:22:30 With:AARON DUQUE Address: [address] [place] [address] [phone] Business (1) When:2-4 days With:NONE PHYSICIAN Address:Unknown When:2-4 days [facility] 08-30-2023 Emergency department Discharge summary Discharge Instructions Thank you for allowing [facility] to assist you with your healthcare needs. The following is importantdischarge information regarding your hospital visit. Diagnosis from Today's Visit Abdominal pain What to Do Next Instructions from Your Care Team No qualifying data available. Post Acute Orders No qualifying data available. You Need to Schedule the Following Appointments Follow Up with AARON DUQUE When Within 2-4 days Where: [address] [place] [address] [phone] Business (1) Follow Up with NONE PHYSICIAN [...] chest, arm, back, neck or jaw pain 7981-5379 [employer]. [address] [place] [address]. All rights reserved. This information is not intended as a substitute for professional medical care. Always follow yourhealthcare professional's instructions. Additional Information VACCINATE! IT SAVES LIVES! Members of the community who have not yet received the COVID-19 vaccine and would like to receive it can visit one of [facility] vaccine clinics. There are many vaccine clinic locations within the [facility]. For locations and available times, please visit www.gettheshot.coronavirus.[place].gov/. It is important to note that some COVID mobile vaccine clinics are held outdoors and may be canceled in rainy or stormy conditions. To learn more about pediatric vaccinations (ages 5-11), we invite you to visit the [facility] webpage. https://www.[facility].org/pages/1874-Jnmqb-Tsqtvwkwkny-Lwyfgzaqlj-Pbhjy-Yux stions.htmlTo learn more about the COVID-19 vaccine, we invite you to visit the CDC website for a list of frequently asked questions. https://www.cdc.gov/coronavirus/2019-ncov/vaccines/faq.html [facility] Patient Portal Access Instructions: Stay connected with your healthcare team and access your personal medical information anytime with the [facility] Patient Portal. If you would like a full copy of your medical records please contact the [facility] Medical Records Department Friday through Friday between 8a.m. and 4:30p.m. Please follow the directions below to access the portal: 1.Access the email account you provided upon registration to the hospital.2.Look for an invitation email from [facility].3.Open the email and access the invitation link: Accept Invitation to [facility]4.Fill in the required vegas to create your account. Sign into www.Abigail Stewart with your username and password that you [...] you will allow to register on the [facility] Patient Portal for access to your information. You can also access the [facility] Patient Portal on the [employer]. Simply click on Health Records under PhoneTell and then click on the [facility] logo. HOW TO SAFELY DISPOSE OF PRESCRIPTION [...] Call your local pharmacy or go to http://Ticketbud.[facility] [facility] [employer]/0Y8Rt9a to find one close to you.3.Make use of household items: Use cat litter or old coffee grounds to dispose medications if other options arenot available. Mix your drugs with these household products, seal them in an airtight container andthrow it into the garbage. Call [facility]: [phone] to be sure your drugs can be [...] aware that I should contact my doctor. Patient/Auxiliary Equipment Tender Signature: Date/Time: Relationship to Patient: Witness Name/Signature: Date/Time: [facility]08-30-2023 Emergency department Discharge summary Discharge Instructions Thank you for allowing [facility] to assist you with your healthcare needs. The following is importantdischarge information regarding your hospital visit. Diagnosis from Today's Visit Abdominal pain What to Do Next Instructions from Your Care Team No qualifying data available. Post Acute Orders No qualifying data available. You Need to Schedule the Following Appointments Follow Up with AARON DUQUE When Within 2-4 days Where: [address] [facility] [place] [address] [phone] [facility] (1) Follow Up with NONE PHYSICIAN [...] chest, arm, back, neck or jaw pain 4283-0351 [employer]. [address] [place] [address]. All rights reserved. This information is not intended as a substitute for professional medical care. Always follow yourhealthcare professional's instructions. Additional Information VACCINATE! IT SAVES LIVES! Members of the community who have not yet received the COVID-19 vaccine and would like to receive it can visit one of [facility] vaccine clinics. There are many vaccine clinic locations within the [facility]. For locations and available times, please visit www.gettheshot.coronavirus.[place].gov/. It is important to note that some COVID mobile vaccine clinics are held outdoors and may be canceled in rainy or stormy conditions. To learn more about pediatric vaccinations (ages 5-11), we invite you to visit the [facility] webpage. https://www.[facility].org/pages/6176-Nxzaq-Ivemmdxqtnl-Xnxrnzmrer-Lbwrw-Dhp stions.htmlTo learn more about the COVID-19 vaccine, we invite you to visit the CDC website for a list of frequently asked questions. https://www.cdc.gov/coronavirus/2019-ncov/vaccines/faq.html [facility] Patient Portal Access Instructions: Stay connected with your healthcare team and access your personal medical information anytime with the [facility] Patient Portal. If you would like a full copy of your medical records please contact the [facility] Medical Records Department Friday through Friday between 8a.m. and 4:30p.m. Please follow the directions below to access the portal: 1.Access the email account you provided upon registration to the [facility].2.Look for an invitation email from [facility].3.Open the email and access the invitation link: Accept Invitation to [facility] [employer]4.Fill in the required vegas to create your account. Sign into www.Abigail Stewart with your username and password that you [...] you will allow to register on the [facility] Patient Portal for access to your information. You can also access the [facility] Patient Portal on the [employer]. Simply click on Health Records under PhoneTell and then click on the [facility] logo. HOW TO SAFELY DISPOSE OF PRESCRIPTION [...] Call your local pharmacy or go to http://bit.ly/0I3Rz4x to find one close to you.3.Make use of household items: Use cat litter or old coffee grounds to dispose medications if other options arenot available. Mix your drugs with these household products, seal them in an airtight container andthrow it into the garbage. Call [facility]: [phone] to be sure your drugs can be [...] aware that I should contact my doctor. Patient/Auxiliary Equipment Tender Signature: Date/Time: Relationship to Patient: Witness Name/Signature: Date/Time: [facility]08-30-2023 Note ORIGINAL EXAMINATION: CT OF THE ABDOMEN [...] Sign Date: 02/12/2023 8:10:54 PM Ordering Provider: [facility]08-30-2023 Note Sinus rhythm RSR' in V1 or V2, probably normal variant Baseline wander in lead(s) II,III,aVF,V2 Compared to ECG at 03/08/2018 23:11:38 BORDERLINE ECG Electronic Signature: ANJEL PEÑA DO 02/12/2023 17:53:40[facility] 05-16-2023 NoteORIGINAL PROCEDURE: Fluoroscopic drainage catheter evaluation (Abscessogram) performed on 10/28/2022. INDICATION: LLQ seroma s/p drain and sclerosis. The patient reports minimal drainage recently. COMPARISON: 10/21/2022. TECHNIQUE/FINDINGS: The procedure was performed in the VIR Suite with the patient in the supine position. A tool machinist image demonstrated position of the existing percutaneous [...] Sign Date: 10/29/2022 10:35:26 AM Ordering Provider: [facility] ([place]) 10-29-2022 NoteORIGINAL PROCEDURE: Ultrasound guided percutaneous drainage [...] 10/29/2022 10:32:48 AM Ordering Provider: [facility] ([place])10-28-2022 History and physical note IR PREPROCEDURE H&P [...] 10/10/2022 and can be found in the [facility] ([facility] Roshni Flores PA-C Interventional Radiology Pager [phone] IR Dept [id number] Available on [facility] Digitally Signed by ROSHNI FLORES PA-C on 10/28/2022 05:[address] [facility] [phone] Note* Farrah Mcallister RN: SIGN, AUTHOR, SIGN, AUTHOR, PERFORM Event Display: IR Procedure Record Authored Date: [id number] IR Procedure Record Summary Primary Physician: Finalized Date/Time: 10/28/22 15:00:43 Pt. Name: PATRICK KOROMA /Sex: 1980 Male Med Rec #: [id number] Physician: Financial #: [id number] Pt. Type: O Room/Bed: / Admit/Disch: 10/28/22 [...] Entry 3 Case Attendee ESAU LOVE MD, Filling Operator Brandie Mendez Filling Operator Role Performed Radiologist Procedure Scrub Technologist Circulating [...] Case Attendee Farrah Mcallister RN Role Performed Hot Roll Laminator 1 Details Time In 10/28/22 14:40:00 Time [...] mL Medication OMNIPAQUE 300 50ML 10/PK Y-530 [facility] 2854-9456-04 Radiology Flouroscopy Fluoroscopy Used? Yes Fluoro Dose [...] and Vanessa Celeste, results are properly Brandie eSllers, labeled and Farrah Mcallister RN appropriately displayed, [...] Radiology - Action Plan Outcomes Met? Yes Hand Deicer Element Winder Farrah Mcallister RN Completing Procedure Plan Last Modified By: Farrah Mcallister RN 10/28/22 14:51:12 Case Comments <None> Finalized By: Farrah Mcallister RN Document Signatures Signed By: Farrah Mcallister RN 10/28/22 14:58 Farrah Mcallister RN 10/28/22 15:[address] [facility] 05-15-2023 Hospital Discharge instructions Patient Education 10/28/2022 14:57:53 Radiology- Procedure/Biopsy 09/29/2019 (CUSTOM) [place] Radiology Procedure/Biopsy Discharge Instructions Interventional Radiology [facility] Imaging Services [address] [place] [address] Today, you had a . This procedure/biopsy [...] 1 to 2 days following the procedure. Utmf-ncb-lnlhrob pain medication should be used for pain [...] instruction below: 8:00 am- 5:00 pm call [phone] After 5:00 pm call [phone] After 24 hours, contact the physician who [...] with primary care provider Address:Unknown When: Unknown [facility] 05-15-2023 Note IR Procedure Record Summary Primary Physician: Finalized Date/Time: 10/28/22 15:00:43 Pt. Name: PATRICK KOROMA /Sex: 1980 Male Med Rec #: [id number] Physician: Financial #: [id number] Pt. Type: O Room/Bed: / Admit/Disch: 10/28/22 [...] Entry 3 Case Attendee ESAU LOVE MD, Filling Operator Brandie Mendez Filling Operator Role Performed Radiologist Procedure Scrub Technologist Circulating [...] Case Attendee Farrah Mcallister RN Role Performed Hot Roll Laminator 1 Details Time In 10/28/22 14:40:00 Time [...] mL Medication OMNIPAQUE 300 50ML 10/PK Y-530 [facility] 8612-6206-38 Radiology Flouroscopy Fluoroscopy Used? Yes Fluoro Dose [...] Radiology - Action Plan Outcomes Met? Yes Hand Deicer Element Winder Farrah Mcallister RN Completing Procedure Plan Last Modified By: Farrah Mcallister RN 10/28/22 14:51:12 Case Comments Finalized By: Farrah Mcallister RN Document Signatures Signed By: Farrah Mcallister RN 10/28/22 14:58 Farrah Mcallister RN 10/28/22 15:[address] [id number] Summary of episode note Discharge Instructions Thank you for allowing [facility] to assist you with your healthcare needs. [...] medication providers or retail pharmacies. Education Materials [place] Radiology Procedure/Biopsy Discharge Instructions Interventional Radiology [facility] Imaging Services [address] [facility] [address] Today, you had a . This procedure/biopsy [...] 1 to 2 days following the procedure. Dqqj-ltz-nmheqjb pain medication should be used for pain [...] instruction below: 8:00 am- 5:00 pm call [phone] After 5:00 pm call [phone] After 24 hours, contact the physician who [...] to receive it can visit one of [facility] vaccine clinics. There are many vaccine clinic locations within the [facility]. For locations and available times, please visit [email or web address]/. It is important to note that some COVID mobile vaccine clinics are held outdoors and may be canceled in rainy or stormy conditions. To learn more about pediatric vaccinations (ages 5-11), we invite you to visit the [facility] webpage. https://www.[facility].org/pages/1120-Bosem-Szguxxyewut-Egokrubxjs-Ddqyb-Rte stions.htmlTo learn more about the COVID-19 vaccine, we invite you to visit the CDC website for a list of frequently asked questions.https://www.cdc.gov/coronavirus/2019-ncov/vaccines/faq.html [facility] Patient Portal Access Instructions: Stay connected with your healthcare team and access your personal medical information anytime with the [facility] Patient Portal. Please follow the directions below to create your [facility] account: 1.Access the email account you provided upon registration to the hospital/physician office.2.Look for an invitation email from [facility].3.Open the email and access the invitation link: AcceptInvitation to [facility].4.Fill in the required vegas to create your account. To access your account, visit [email or web address]. Click the blue button labeled Access Patient Portal and then log in with the username and password that you created in the steps above. You will be able to view your test results, lab results, a summary of your visits, upcoming appointments and more. There is also a convenient messaging option where you can send secure messages to your p Lights[employer] Labsvider. In addition, you will have the ability to download any documents or summaries to your computer and/or send the information securely to a physician. Remember that your healthcare information is confidential, so carefully consider who you will allowto register on the [facility] Patient Portal for access to your information. You can also access the [facility] Portal on the [facility] [employer] [facility] [employer] Back[facility] yen. Simply click on Patient Portal and then log into your account. If you would like to receive a full copy of your medical records, please contact the [facility] Medical Records Department by calling [phone], Friday through Friday between 8 a.m. and [...] Call your local pharmacy or go to http://bit.ly/3U1Wm4c to find one close to you.3.Make use of household items: Use cat litter or old coffee grounds to dispose medications if other options arenot available. Mix your drugs with these household products, seal them in an airtight container andthrow it into the garbage. Call [facility]: [phone] to be sure your drugs can be [...] aware that I should contact my doctor. 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 HospitalUunosycz26-18-2278 Evaluation + Plan noteExtracted from: Title:Preprocedure HP [...] 10/10/2022 and can be found in the [facility] Records ([employer]). Roshni Flores PA-C Interventional Radiology Pager [phone] IR Dept [id number] [facility] Future Scheduled Tests Laboratory* Basic Metabolic Panel 11/23/21 * Carbamazepine Level 11/23/21 * Complete Metabolic Panel 11/23/[address] [facility] 05-15-2023 Hospital Discharge instructions Patient Education [...] come back to this facility in person. 6377-2174 [employer] [facility] [employer]. [address] [place] [address]. All rights reserved. This information is not intended as a substitute for professional medical care. Always follow yourhealthcare professional's instructions. Follow Up Care 10/28/2022 01:29:29 With:The IR department at [facility] Address:Unknown When:Within 1 Day(s) Comments:Follow-up as scheduled later today to have the drain removed.Return to the ED for any problems or concerns. [facility] 05-15-2023 Note Discharge Instructions Thank you for allowing [facility] to assist you with your healthcare needs. The following is importantdischarge information regarding your hospital visit. Diagnosis from Today's Visit Drain Problem Drain leakage What to Do Next Instructions from Your Care Team No qualifying data available. Post Acute Orders No qualifying data available. You Need to Schedule the Following Appointments Follow Up with The IR department at [facility] When In 1 day Why: Follow-up [...] come back to this facility in person. 4732-0622 [facility]. [address] [place] [address]. All rights reserved. This information is not intended as a substitute for professional medical care. Always follow yourhealthcare professional's instructions. Additional Information VACCINATE! IT SAVES LIVES! Members of the community who have not yet received the COVID-19 vaccine and would like to receive it can visit one of [facility] vaccine clinics. There are many vaccine clinic locations within the [facility]. For locations and available times, please visit www.[email or web address].[place].gov/. It is important to note that some COVID mobile vaccine clinics are held outdoors and may be canceled in rainy or stormy conditions. To learn more about pediatric vaccinations (ages 5-11), we invite you to visit the [facility] webpage. https://www.[facility].org/pages/1546-Bjxvg-Vjrztxmqwjk-Jfbaorqumv-Bkkol-Nmx stions.htmlTo learn more about the COVID-19 vaccine, we invite you to visit the CDC website for a list of frequently asked questions. https://www.cdc.gov/coronavirus/2019-ncov/vaccines/faq.html [facility] Patient Portal Access Instructions: Stay connected with your healthcare team and access your personal medical information anytime with the [facility] Patient Portal. If you would like a full copy of your medical records please contact the [facility] Medical Records Department Friday through Friday between 8a.m. and 4:30p.m. Please follow the directions below to access the portal: 1.Access the email account you provided upon registration to the [facility].2.Look for an invitation email from [facility].3.Open the email and access the invitation link: Accept Invitation to [facility]4.Fill in the required vegas to create your account. Sign into www.Abigail Stewart with your username and password that you [...] you will allow to register on the [facility] Patient Portal for access to your information. You can also access the [facility] Patient Portal on the [employer] yen. Simply click on Health Records under SRCH2Data and then click on the [facility] logo. HOW TO SAFELY DISPOSE OF PRESCRIPTION [...] Call your local pharmacy or go to http://bit.ly/7P5Om3o to find one close to you.3.Make use of household items: Use cat litter or old coffee grounds to dispose medications if other options arenot available. Mix your drugs with these household products, seal them in an airtight container andthrow it into the garbage. Call [facility]: [phone] to be sure your drugs can be [...] aware that I should contact my doctor. 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 [id number] Note Discharge Instructions Thank you for allowing [facility] to assist you with your healthcare needs. The following is importantdischarge information regarding your hospital visit. Diagnosis from Today's Visit Drain Problem Drain leaking What to Do Next Instructions from Your Care Team No qualifying data available. Post Acute Orders No qualifying data available. You Need to Schedule the Following Appointments Follow Up with The IR department at [facility] When In 1 day Why: Follow-up [...] come back to this facility in person. 2438-4523 [facility]. [address] [place] [address]. All rights reserved. This information is not intended as a substitute for professional medical care. Always follow yourhealthcare professional's instructions. Additional Information VACCINATE! IT SAVES LIVES! Members of the community who have not yet received the COVID-19 vaccine and would like to receive it can visit one of [facility] vaccine clinics. There are many vaccine clinic locations within the [facility]. For locations and available times, please visit www.[email or web address].[place].gov/. It is important to note that some COVID mobile vaccine clinics are held outdoors and may be canceled in rainy or stormy conditions. To learn more about pediatric vaccinations (ages 5-11), we invite you to visit the [facility] webpage. https://www.[facility].org/pages/4390-Ghccs-Jefusiynitc-Iyrutrmzye-Xginb-Hfe stions.htmlTo learn more about the COVID-19 vaccine, we invite you to visit the CDC website for a list of frequently asked questions. https://www.cdc.gov/coronavirus/2019-ncov/vaccines/faq.html [facility] Patient Portal Access Instructions: Stay connected with your healthcare team and access your personal medical information anytime with the [facility] Patient Portal. If you would like a full copy of your medical records please contact the [facility] Medical Records Department Friday through Friday between 8a.m. and 4:30p.m. Please follow the directions below to access the portal: 1.Access the email account you provided upon registration to the [facility].2.Look for an invitation email from [facility].3.Open the email and access the invitation link: Accept Invitation to [facility]4.Fill in the required vegas to create your account. Sign into www.Abigail Stewart with your username and password that you [...] you will allow to register on the [facility] Patient Portal for access to your information. You can also access the [facility] Patient Portal on the [employer]. Simply click on Health Records under PhoneTell and then click on the [facility] logo. HOW TO SAFELY DISPOSE OF PRESCRIPTION [...] Call your local pharmacy or go to [email or web address] [email or web address] to find one close to you.3.Make use of household items: Use cat litter or old coffee grounds to dispose medications if other options arenot available. Mix your drugs with these household products, seal them in an airtight container andthrow it into the garbage. Call [facility]: [phone] to be sure your drugs can be [...] aware that I should contact my doctor. Patient/Auxiliary Equipment Tender Signature: Date/Time: Relationship to Patient: Witness Name/Signature: Date/Time: [facility]05-15-2023 Note Discharge Instructions Thank you for allowing [facility] to assist you with your healthcare needs. The following is importantdischarge information regarding your hospital visit. Diagnosis from Today's Visit Drain Problem Drain leaking What to Do Next Instructions from Your Care Team No qualifying data available. Post Acute Orders No qualifying data available. You Need to Schedule the Following Appointments Follow Up with The IR department at [facility] When In 1 day Why: Follow-up [...] come back to this facility in person. 3152-3474 [facility]. [address] [place] [address], [place] [address]. All rights reserved. This information is not intended as a substitute for professional medical care. Always follow yourhealthcare professional's instructions. Additional Information VACCINATE! IT SAVES LIVES! Members of the community who have not yet received the COVID-19 vaccine and would like to receive it can visit one of [facility] vaccine clinics. There are many vaccine clinic locations within the [facility]. For locations and available times, please visit www.gettheshot.coronavirus.[place].gov/. It is important to note that some COVID mobile vaccine clinics are held outdoors and may be canceled in rainy or stormy conditions. To learn more about pediatric vaccinations (ages 5-11), we invite you to visit the [facility] webpage. https://www.[facility] [facility]s.org/pages/4944-Gdkac-Ceqwghjgxgy-Iemkcwhwhw-Kftxe-Cnv stions.htmlTo learn more about the COVID-19 vaccine, we invite you to visit the CDC website for a list of frequently asked questions. https://www.cdc.gov/coronavirus/2019-ncov/vaccines/faq.html [facility] Patient Portal Access Instructions: Stay connected with your healthcare team and access your personal medical information anytime with the [facility] Patient Portal. If you would like a full copy of your medical records please contact the [facility] Medical Records Department Friday through Friday between 8a.m. and 4:30p.m. Please follow the directions below to access the portal: 1.Access the email account you provided upon registration to the hospital.2.Look for an invitation email from [facility].3.Open the email and access the invitation link: Accept Invitation to [facility]4.Fill in the required vegas to create your account. Sign into www.Abigail Stewart with your username and password that you [...] you will allow to register on the [facility] Patient Portal for access to your information. You can also access the [facility] Patient Portal on the [employer]. Simply click on Health Records under PhoneTell and then click on the [facility] logo. HOW TO SAFELY DISPOSE OF PRESCRIPTION [...] Call your local pharmacy or go to http://[email or web address].[facility] [email or web address] to find one close to you.3.Make use of household items: Use cat litter or old coffee grounds to dispose medications if other options arenot available. Mix your drugs with these household products, seal them in an airtight container andthrow it into the garbage. Call [facility]: [phone] to be sure your drugs can be [...] aware that I should contact my doctor. Patient/Auxiliary Equipment Tender Signature: Date/Time: Relationship to Patient: Witness Name/Signature: Date/Time: [facility]05-08-2023 Evaluation + Plan noteExtracted from: Title:Preprocedure HP [...] 10/10/2022 and can be found in the [facility] ([employer]). Roshni Flores PA-C Interventional Radiology Pager [phone] IR Dept [id number] [facility] Future Appointments Appointment Date:10/28/2022 01:00:00 PM Scheduled Provider: Location:IR Appointment Type:IR Drainage Cath Injection for Eval Future Scheduled Tests Laboratory* Basic Metabolic Panel 11/23/21 * Carbamazepine Level 11/23/21 * Complete Metabolic Panel 11/23/[address] [facility] 05-08-2023 Note* Farrah Mcallister RN: SIGN, AUTHOR, SIGN, AUTHOR, SIGN, AUTHOR, PERFORM Event Display: IR Procedure Record Authored Date: [id number] IR Procedure Record Summary Primary Physician: Finalized Date/Time: 10/21/22 10:43:31 Pt. Name: PATRICK KOROMA /Sex: 1980 Male Med Rec #: [id number] Physician: Financial #: [id number] Pt. Type: O Room/Bed: / Admit/Disch: 10/21/22 [...] Attendee ESAU LOVE MD, Brittaney RN Hultman 3C Plus Suzie Remy Role Performed Radiologist Procedure Hot Roll Laminator 1 Scrub Technologist Details Time In 10/21/22 10:25:00 10/21/22 09:58:00 10/21/22 09:58:00 Time Out 10/21/22 10:38:00 10/21/22 10:38:00 10/21/22 10:38:00 Procedure/Preference IR Sclerotherapy SN IR Sclerotherapy SN IR Sclerotherapy SN Card Last Modified By: Farrah Mcallister RN, Brittaney RN Magee, Brittaney RN 10/21/22 10:38:11 10/21/22 10:38:11 10/21/22 10:38:11 Entry 4 Case Attendee Allie Filling OperatorVerito Siddiqi Role Performed Circulating Technologist Details Time [...] are properly Suzie Remy, Sky Kelley and Verito Siddiqi appropriately displayed, Alcohol based prep dry [...] Radiology - Action Plan Outcomes Met? Yes Hand Deicer Element Winder Farrah Mcallister RN Completing Procedure Plan Last [...] 10/21/22 10:38 Farrah Mcallister RN 10/21/22 10:[address] [facility] 05-08-2023 Note IR Procedure Record Summary Primary Physician: Finalized Date/Time: 10/21/22 10:43:31 Pt. Name: PATRICK KOROMA Cesar SauerB./Sex: 1980 Male Med Rec #: [id number] Physician: Financial #: [id number] Pt. Type: O Room/Bed: / Admit/Disch: 10/21/22 [...] LOVE MD, Brittaney RN Hultman, Rad Tech Amanda K Role Performed Radiologist Procedure Hot Roll Laminator 1 Scrub Technologist Details Time In 10/21/22 10:25:00 10/21/22 09:58:00 10/21/22 09:58:00 Time Out 10/21/22 10:38:00 10/21/22 10:38:00 10/21/22 10:38:00 Procedure/Preference IR Sclerotherapy SN IR Sclerotherapy SN IR Sclerotherapy SN Card Last Modified By: Farrah Mcallister RN, Brittaney RN Magee, Brittaney RN 10/21/22 10:38:11 10/21/22 10:38:11 10/21/22 10:38:11 Entry 4 Case Attendee Sky Kelley Role Performed Circulating Technologist Details Time In [...] Out Farrah Mcallister RN, Relevant images and [place] 3C Plus results are properly Suzie K, Sky Kelley labeled and Tech Мария L appropriately displayed, Alcohol based prep dry Instrument Sterility Procedure IR Sclerotherapy SN Last Modified By: Farrah Mcallister RN 10/21/22 10:25:37 Skin Prep- IR Entry 1 Procedure IR Sclerotherapy SN Skin Prep Prep Area Abdomen Side Left By [place] Filling Operator Prep Agents Chloraprep Suzie K Hair Removal [...] Radiology - Action Plan Outcomes Met? Yes Hand Deicer Element Winder Farrah Mcallister RN Completing Procedure Plan Last [...] 10/21/22 10:38 Farrah Mcallister RN 10/21/22 10:[address] [facility] HospitalPujbxrzz80-12-1138 History and physical note IR PREPROCEDURE H&P [...] 10/10/2022 and can be found in the [facility] Records ([employer]). Roshni Flores PA-C Interventional Radiology Pager [phone] IR Dept [id number] [facility] Digitally Signed by ROSHNI FLORES PA-C on 10/21/2022 09:38 AM Digitally Signed by ESAU LOVE MD on 10/21/2022 10:[address] [facility] HospitalNmvghqzo38-15-2845 Note* Juliocesar Mo: SIGN, AUTHOR, PERFORM Event Display: IR Procedure Record Authored Date: [id number] IR Procedure Record Summary Primary Physician: RAMIN SAMPSON MD Finalized Date/Time: 09/12/22 14:34:18 Pt. Name: [place] PATRICKLENORA Marquez/Sex: 1980 Male Med Rec #: [id number] Physician: Financial #: [id number] Pt. Type: O Room/Bed: / Admit/Disch: 09/12/22 [...] SAMPSON MD, Alexis Tech Fierstos, Megan R Filling Operator Role Performed Primary Surgeon Scrub Technologist Circulating Technologist Details Time In 09/12/22 14:14:00 09/12/22 14:10:00 09/12/22 14:10:00 Time Out 09/12/22 14:30:00 09/12/22 14:30:00 09/12/22 14:30:00 Procedure/Preference IR Drainage Cath IR Drainage Cath IR Drainage Cath Card Injection for Eval SN Injection for Eval SN Injection for Eval SN Last Modified By: Juliocesar Mo Rad Juliocesar Mo Megan R Filling Operator 09/12/22 14:30:28 Tech 09/12/22 14:30:28 Tech 09/12/22 14:30:28 Entry 4 Case Attendee Brandie Mendez Filling Operator Role Performed Hot Roll Laminator 1 Details Time In 09/12/22 14:10:00 Time Out 09/12/22 14:30:00 Procedure/Preference IR Drainage Cath Card Injection for Eval SN Last Modified By: Juliocesar Mo Filling Operator 09/12/22 14:30:28 Radiology Procedures- IR Entry 1 Procedure/Preference IR Drainage Cath Actual Procedure ir drain cath inj for Card Injection for Eval SN eval sn Primary Procedure Yes Primary Surgeon RAMIN SAMPSON MD Anesthesia/Sedation None Type Additional Procedure Times Start 09/12/22 14:14:00 Stop 09/12/22 14:25:00 Specialty Service SN Radiology Procedure EBL 0 mL Last Modified By: Juliocesar Mo Filling Operator 09/12/22 14:30:33 Radiology Procedure Details - IR Entry 1 Radiology Sedation Case Times Sedation Total Time 0 Radiology - Fluid/Drainage Radiology Contrast Contrast Used? Yes Dose 10 mL Medication OMNIPAQUE 300 50ML 10/PK Y-530 [facility] 8780-3988-89 Radiology Flouroscopy Fluoroscopy Used? Yes Fluoro Dose [...] the drain. Last Modified By: Juliocesar Mo Filling Operator 09/12/22 14:34:10 General Case Data - IR Entry 1 Case Information Room IR 18 Case Level IR Level 2 Wound Class None Specialty SN Radiology Procedure ASA Class None Diagnosis Preop Diagnosis LLQ Seroma Postop Same As Preop Yes Postop Diagnosis LLQ Seroma Last Modified By: Juliocesar Mo Filling Operator 09/12/22 14:17:00 Procedure Case Times- IR Entry 1 Patient In Procedure Patient In OR 09/12/22 14:10:00 Patient Out of OR 09/12/22 14:30:00 Procedure Start/Stop Procedure Start Time 09/12/22 14:14:00 Procedure Stop Time 09/12/22 14:25:00 Last Modified By: Juliocesar Mo Filling Operator 09/12/22 14:30:24 Immediate Post Procedure Note - IR Entry 1 Immediate Post Yes Findings Successful drain cath Procedure Note sclerosis w/ etoh 9 ml displayed for Physician to review Closure Technique Closure Technique Other than Primary Last Modified By: Juliocesar Mo Filling Operator 09/12/22 14:30:14 Immediate Post Procedure Note - IR Signed By: RAMIN SAMPSON MD 09/12/22 14:27 Allergy Information- IR Entry 1 Allergies Reviewed? Yes Allergies Reviewed Patient With Last Modified By: Juliocesar Mo Filling Operator 09/12/22 14:12:52 Radiology Protocols/Time Out- IR Entry [...] results are properly Tech, Vanessa, labeled and [employer] Devang Filling Operator appropriately displayed, Alcohol based prep dry Instrument Sterility Team Members Vadim Berrios Verifying Sterility Procedure IR Drainage Cath Injection for Eval SN Last Modified By: Juliocesar Mo R Filling Operator 09/12/22 14:15:05 Skin Prep- IR Entry 1 Procedure IR Drainage Cath Injection for Eval SN Skin Prep Prep Area Abdomen Side Left By Vadim Berrios Prep Agents Chloraprep Hair Removal Method N/A Last Modified By: Juliocesar Mo R Filling Operator 09/12/22 14:15:32 Patient Positioning- IR Entry 1 Procedure IR Drainage Cath Body Position OP Supine Injection for Eval SN Feet Uncrossed? Yes Pressure Points n/a Checked Last Modified By: Juliocesar Mo R Filling Operator 09/12/22 14:15:44 Radiology Procedure Plan - IR [...] symptoms of electrical injury. Outcomes Met? Yes Hand Deicer Element Winder Juliocesar Mo Tech Procedure Plan Last Modified By: Juliocesar Mo 09/12/22 14:16:26 Case Comments <None> Finalized By: Juliocesar Mo Document Signatures Signed By: Juliocesar Mo 09/12/22 14:[address] [facility] 03-30-2023 Hospital Discharge instructions Patient Education 09/12/2022 14:26:09 Radiology- Procedure/Biopsy 09/29/2019 (CUSTOM) [place] Radiology Procedure/Biopsy Discharge Instructions Interventional Radiology [facility] Imaging Services [address] [place] [address] Today, you had a . This procedure/biopsy [...] 1 to 2 days following the procedure. Qflu-luy-faedcju pain medication should be used for pain [...] instruction below: 8:00 am- 5:00 pm call [phone] After 5:00 pm call [phone] After 24 hours, contact the physician who [...] with primary care provider Address:Unknown When: Unknown [facility] 03-30-2023 Interventional radiology Progress note IR [...] MARSHALL CROCKER PA-C on 09/12/2022 04:[address] [id number] Note IR Procedure Record Summary Primary Physician: RAMIN SAMPSON MD Finalized Date/Time: 09/12/22 14:34:18 Pt. Name: PATRICK KOROMA Cesar Reyes./Sex: 1980 Male Med Rec #: [id number] Physician: Financial #: [id number] Pt. Type: O Room/Bed: / Admit/Disch: 09/12/22 [...] 1 Entry 2 Entry 3 Case Attendee CAMILLA, MITRYAN MD Craemer, Vadim Tech Fierstos, Juliocesar R Filling Operator Role Performed Primary Surgeon Scrub Technologist Circulating Technologist Details Time In 09/12/22 14:14:00 09/12/22 14:10:00 09/12/22 14:10:00 Time Out 09/12/22 14:30:00 09/12/22 14:30:00 09/12/22 14:30:00 Procedure/Preference IR Drainage Cath IR Drainage Cath IR Drainage Cath Card Injection for Eval SN Injection for Eval SN Injection for Eval SN Last Modified By: Juliocesar Mo Megan R Rad Fierstos, Megan R Filling Operator 09/12/22 14:30:28 Tech 09/12/22 14:30:28 Tech 09/12/22 14:30:28 Entry 4 Case Attendee Brandie Mendez Devang Filling Operator Role Performed Hot Roll Laminator 1 Details Time In 09/12/22 14:10:00 Time Out 09/12/22 14:30:00 Procedure/Preference IR Drainage Cath Card Injection for Eval SN Last Modified By: Juliocesar Mo Filling Operator 09/12/22 14:30:28 Radiology Procedures- IR Entry 1 Procedure/Preference IR Drainage Cath Actual Procedure ir drain cath inj for Card Injection for Eval SN eval sn Primary Procedure Yes Primary Surgeon RAMIN SAMPSON MD Anesthesia/Sedation None Type Additional Procedure Times Start 09/12/22 14:14:00 Stop 09/12/22 14:25:00 Specialty Service SN Radiology Procedure EBL 0 mL Last Modified By: Juliocesar Mo Filling Operator 09/12/22 14:30:33 Radiology Procedure Details - IR Entry 1 Radiology Sedation Case Times Sedation Total Time 0 Radiology - Fluid/Drainage Radiology Contrast Contrast Used? Yes Dose 10 mL Medication OMNIPAQUE 300 50ML 10/PK Y-530 [facility] 7880-3989-40 Radiology Flouroscopy Fluoroscopy Used? Yes Fluoro Dose [...] drain. Last Modified By: Juliocesar Mo R Filling Operator 03/30/23 14:34:10 General Case Data - IR Entry 1 Case Information Room AH IR 18 Case Level IR Level 2 Wound Class None Specialty SN Radiology Procedure ASA Class None Diagnosis Preop Diagnosis LLQ Seroma Postop Same As Preop Yes Postop Diagnosis LLQ Seroma Last Modified By: Juliocesar Mo R Filling Operator 09/12/22 14:17:00 Procedure Case Times- IR Entry 1 Patient In Procedure Patient In OR 09/12/22 14:10:00 Patient Out of OR 09/12/22 14:30:00 Procedure Start/Stop Procedure Start Time 09/12/22 14:14:00 Procedure Stop Time 09/12/22 14:25:00 Last Modified By: Juliocesar Mo R Filling Operator 09/12/22 14:30:24 Immediate Post Procedure Note - IR Entry 1 Immediate Post Yes Findings Successful drain cath Procedure Note sclerosis w/ etoh 9 ml displayed for Physician to review Closure Technique Closure Technique Other than Primary Last Modified By: Juliocesar Mo R Filling Operator 09/12/22 14:30:14 Immediate Post Procedure Note - IR Signed By: RAMIN SAMPSON MD 09/12/22 14:27 Allergy Information- IR Entry 1 Allergies Reviewed? Yes Allergies Reviewed Patient With Last Modified By: Juliocesar Mo R Filling Operator 09/12/22 14:12:52 Radiology Protocols/Time Out- IR Entry [...] are properly Tech, Vanessa, labeled and Brandie Swanson Tech appropriately displayed, Alcohol based prep dry Instrument Sterility Team Members Vadim Berrios Verifying Sterility Procedure IR Drainage Cath Injection for Eval SN Last Modified By: Juliocesar Mo Filling Operator 09/12/22 14:15:05 Skin Prep- IR Entry 1 Procedure IR Drainage Cath Injection for Eval SN Skin Prep Prep Area Abdomen Side Left By Vadim Berrios Prep Agents Chloraprep Hair Removal Method N/A Last Modified By: Juliocesar Mo Filling Operator 09/12/22 14:15:32 Patient Positioning- IR Entry 1 Procedure IR Drainage Cath Body Position OP Supine Injection for Eval SN Feet Uncrossed? Yes Pressure Points n/a Checked Last Modified By: Juliocesar Mo Filling Operator 09/12/22 14:15:44 Radiology Procedure Plan - IR [...] symptoms of electrical injury. Outcomes Met? Yes Hand Deicer Element Winder Juliocesar Mo efectivox Tech Procedure Plan Last Modified By: Juliocesar Mo Filling Operator 09/12/22 14:16:26 Case Comments Finalized By: Juliocesar Mo Filling Operator Document Signatures Signed By: Juliocesar Mo Filling Operator 09/12/22 14:[address] [facility] [facility] [id number] Summary of episode note Discharge Instructions Thank you for allowing [facility] to assist you with your healthcare needs. [...] medication providers or retail pharmacies. Education Materials [place] Radiology Procedure/Biopsy Discharge Instructions Interventional Radiology [facility] Imaging Services [address] [place] [address] Today, you had a . This procedure/biopsy [...] 1 to 2 days following the procedure. Yyre-yji-ddcsjqr pain medication should be used for pain [...] instruction below: 8:00 am- 5:00 pm call [phone] After 5:00 pm call [phone] After 24 hours, contact the physician who [...] to receive it can visit one of [facility] vaccine clinics. There are many vaccine clinic locations within the [facility]. For locations and available times, please visit [email or web address]/. It is important to note that some COVID mobile vaccine clinics are held outdoors and may be canceled in rainy or stormy conditions. To learn more about pediatric vaccinations (ages 5-11), we invite you to visit the [facility] webpage. https://www.[facility].org/pages/8186-Mummm-Mimbeicomur-Wlaavrhqrs-Hrigk-Zlr stions.htmlTo learn more about the COVID-19 vaccine, we invite you to visit the CDC website for a list of frequently asked questions. https://www.cdc.gov/coronavirus/2019-ncov/vaccines/faq.html [facility] Patient Portal Access Instructions: Stay connected with your healthcare team and access your personal medical information anytime with the [facility].If you would like a full copy of your medical records, please contact the [facility] Medical Records Department, Friday through Friday between 8a.m. and 4:30p.m. Please follow the directions below to access the portal: 1.Access the email account you provided upon registration to the [facility].2.Look for an invitation email from [facility].3.Open the email and access the invitation link: Accept Invitation to [facility]4.Fill in the required vegas to create your account. Sign into www.Abigail Stewart with your username and password that you [...] you will allow to register on the [facility] [employer] [facility] [employer] Patient Portal for access to your information. You can also access the [facility] Patient Portal on the [employer]. Simply click on Health Records under PhoneTell and then click on the [facility] logo. HOW TO SAFELY DISPOSE OF PRESCRIPTION [...] Call your local pharmacy or go to [email or web address] to find one close to you.3.Make use of household items: Use cat litter or old coffee grounds to dispose medications if other options arenot available. Mix your drugs with these household products, seal them in an airtight container andthrow it into the garbage. Call [facility]: [phone] to be sure your drugs can be [...] aware that I should contact my doctor. 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 [id number] Evaluation + Plan noteExtracted from: Title:IR pre [...] paper, which has been scanned into the [facility] system. _ Future Scheduled Tests Laboratory* Basic Metabolic Panel 11/23/21 * Carbamazepine Level 11/23/21 * Complete Metabolic Panel 11/23/[address] [facility] 03-30-2023 History and physical note IR [...] paper, which has been scanned into the [facility] system. _ Digitally Signed by MARSHALL CROCKER PA-C on 09/12/2022 01:[address] [facility] [id number] Evaluation + Plan noteExtracted from: Title:IR pre-procedure [...] 08/28/2022 and can be found in the [facility] Electronic [facility] Records ([facility]). Harriet Leonard PA-C Interventional Radiology Pager: [phone] IR dept: x [phone] [facility] Future Appointments Appointment Date:09/12/2022 02:00:00 PM Scheduled Provider: Location:IR Appointment Type:IR Drainage Cath Injection for Eval Future Scheduled Tests Laboratory* Basic Metabolic Panel 11/23/21 * Carbamazepine Level 11/23/21 * Complete Metabolic Panel 11/23/[address] [facility] 03-23-2023 Hospital Discharge instructions Patient Education 09/05/2022 11:49:33 Radiology- Procedure/Biopsy 09/29/2019 (CUSTOM) [place] Radiology Procedure/Biopsy Discharge Instructions Interventional Radiology [facility] Imaging Services [address] [address] Today, you had a Drain insertion . [...] 1 to 2 days following the procedure. Djsu-xsx-ogfnnss pain medication should be used for pain [...] instruction below: 8:00 am- 5:00 pm call [phone] After 5:00 pm call [phone] After 24 hours, contact the physician who [...] with primary care provider Address:Unknown When: Unknown [facility] 03-23-2023 Note* IBETH Rgealado: SIGN, AUTHOR, PERFORM Event Display: IR Procedure Record Authored Date: [id number] IR Procedure Record Summary Primary Physician: ROSHNI FLORES PA-C Finalized Date/Time: 09/05/22 11:48:45 Pt. Name: PATRICK KOROMA Jimmy/Sex: 1980 Male Med Rec #: [id number] Physician: Financial #: [id number] Pt. Type: O Room/Bed: / Admit/Disch: 09/05/22 [...] Case Attendee ROSHNI FLORES Jacque M. Allen, Filling OperatorVerito Joe PA-C Role Performed Primary Surgeon Scrub [...] 4 Case Attendee IBETH Regalado Role Performed Hot Roll Laminator 1 Details Time In 09/05/22 11:21:00 Time [...] Radiology - Action Plan Outcomes Met? Yes Hand Deicer Element Winder IBETH Regalado Completing Procedure Plan Last Modified By: IBETH Regalado 09/05/22 11:26:48 Case Comments <None> Finalized By: IBETH Regalado Document Signatures Signed By: IBETH Regalado 09/05/22 11:[address] [facility] 03-23-2023 History and physical note IR [...] 08/28/2022 and can be found in the [facility] ([facility]). Harriet Leonard PA-C Interventional Radiology Pager: [phone] IR dept: x [phone] [facility] Digitally Signed by HARRIET LEONARD PA-C on 09/05/2022 11:54 AM Digitally Signed by ESAU LOVE MD on 09/05/2022 03:[address] [facility] [facility] [id number] Summary of episode note Discharge Instructions Thank you for allowing [facility] to assist you with your healthcare needs. [...] medication providers or retail pharmacies. Education Materials [place] Radiology Procedure/Biopsy Discharge Instructions Interventional Radiology [facility] Imaging Services [address] [place] [address] Today, you had a Drain insertion . [...] 1 to 2 days following the procedure. Cksu-bsl-iiqjkls pain medication should be used for pain [...] instruction below: 8:00 am- 5:00 pm call [phone] After 5:00 pm call [phone] After 24 hours, contact the physician who [...] to receive it can visit one of [facility] vaccine clinics. There are many vaccine clinic locations within the [facility]. For locations and available times, please visit [email or web address]/. It is important to note that some COVID mobile vaccine clinics are held outdoors and may be canceled in rainy or stormy conditions. To learn more about pediatric vaccinations (ages 5-11), we invite you to visit the [facility] webpage. https://www.[facility].org/pages/1007-Lfznz-Zpqzbkryyxj-Fhfiyniaoe-Rmghx-Was stions.htmlTo learn more about the COVID-19 vaccine, we invite you to visit the CDC website for a list of frequently asked questions. https://www.cdc.gov/coronavirus/2019-ncov/vaccines/faq.html [facility] Patient Portal Access Instructions: Stay connected with your healthcare team and access your personal medical information anytime with the [facility] Patient Portal.If you would like a full copy of your medical records, please contact the [facility] Medical Records Department, Friday through Friday between 8a.m. and 4:30p.m. Please follow the directions below to access the portal: 1.Access the email account you provided upon registration to the hospital.2.Look for an invitation email from [facility].3.Open the email and access the invitation link: Accept Invitation to [facility]4.Fill in the required vegas to create your account. Sign into www.Abigail Stewart with your username and password that you [...] you will allow to register on the [facility] Patient Portal for access to your information. You can also access the [facility] Patient Portal on the [employer] yen. Simply click on Health Records under PhoneTell and then click on the [facility] logo. HOW TO SAFELY DISPOSE OF PRESCRIPTION [...] Call your local pharmacy or go to http://[email or web address] [facility] [email or web address] to find one close to you.3.Make use of household items: Use cat litter or old coffee grounds to dispose medications if other options arenot available. Mix your drugs with these household products, seal them in an airtight container andthrow it into the garbage. Call [facility]: [phone] to be sure your drugs can be [...] aware that I should contact my doctor. 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 [id number] Note IR Procedure Record Summary Primary Physician: ROSHNI FLORES PA-C Finalized Date/Time: 09/05/22 11:48:45 Pt. Name: PATRICK KOROMA Cesar SauerB./Sex: 1980 Male Med Rec #: [id number] Physician: Financial #: [id number] Pt. Type: O Room/Bed: / Admit/Disch: 09/05/22 [...] 1 Entry 2 Entry 3 Case Attendee RSOHNI FLORES Jacque M. Allen, Filling OperatorVerito Joe PA-C Role Performed Primary Surgeon Scrub [...] 4 Case Attendee IBETH Regalado Role Performed Hot Roll Laminator 1 Details Time In 09/05/22 11:21:00 Time [...] Radiology - Action Plan Outcomes Met? Yes Hand Deicer Element Winder IBETH Regalado Completing Procedure Plan Last Modified By: IBETH Regalado 09/05/22 11:26:48 Case Comments Finalized By: IBETH Regalado Document Signatures Signed By: IBETH Regalado 09/05/22 11:[address] [facility] [address] [facility] [id number] Hospital Discharge instructions Patient Education 08/28/2022 21:50:43 [...] up Rapid heart rate Shortness of breath 3927-1179 [employer]. [address] [place] [address]. All rights reserved. This information is not intended as a substitute for professional medical care. Always follow yourhealthcare professional's instructions. Follow Up Care 08/28/2022 19:04:00 With:AARON DUQUE MD, Surgery Address: [address] [facility] [place] [address]- [phone] When:2-4 days [facility] 03-15-2023 Emergency department Discharge summary Discharge Instructions Thank you for allowing [facility] to assist you with your healthcare needs. The following is importantdischarge information regarding your hospital visit. Diagnosis from Today's Visit Seroma Abdominal pain What to Do Next Instructions from Your Care Team No qualifying data available. Post Acute Orders No qualifying data available. You Need to Schedule the Following Appointments Follow Up with AARON DUQUE MD, Surgery When Within 2-4 days Where: [address] [facility] [place] [address]- [phone] Allergies Keflex Keppra (Rash) Tape, Paper (Rash) morphine (Rash) naproxen Medications Please ask your primary doctor or pharmacist before taking any other medication not listed, including over the counter drugs, herbal medications, vitamins and or supplements as they may interact withyour home medications. What How Much When Why Instructions Last Dose New acetaminophen-hydrocodone (Bexar 325- 5 mg oral tablet) 1 tab(s) [...] up Rapid heart rate Shortness of breath 8521-7787 [employer]. [address] [place] [address], [place] [address]. All rights reserved. This information is not intended as a substitute for professional medical care. Always follow yourhealthcare professional's instructions. Additional Information VACCINATE! IT SAVES LIVES! Members of the community who have not yet received the COVID-19 vaccine and would like to receive it can visit one of [facility] vaccine clinics. There are many vaccine clinic locations within the [facility]. For locations and available times, please visit www.[email or web address].[place].gov/. It is important to note that some COVID mobile vaccine clinics are held outdoors and may be canceled in rainy or stormy conditions. To learn more about pediatric vaccinations (ages 5-11), we invite you to visit the [facility] webpage. https://www.[facility].org/pages/2976-Sgrsw-Urqeaqhgaoj-Qwbtvivsjq-Alpyg-Xeu stions.htmlTo learn more about the COVID-19 vaccine, we invite you to visit the CDC website for a list of frequently asked questions. https://www.cdc.gov/coronavirus/2019-ncov/vaccines/faq.html [facility] [employer] Patient Portal Access Instructions: Stay connected with your healthcare team and access your personal medical information anytime with the [facility] [employer] Patient Portal. If you would like a full copy of your medical records please contact the [facility] Medical Records Department Friday through Friday between 8a.m. and 4:30p.m. Please follow the directions below to access the portal: 1.Access the email account you provided upon registration to the hospital.2.Look for an invitation email from [facility].3.Open the email and access the invitation link: Accept Invitation to [facility]4.Fill in the required vegas to create your account. Sign into [email or web address] with your username and password that you [...] you will allow to register on the [facility] [employer] Patient Portal for access to your information. You can also access the [facility] Patient Portal on the [employer]. Simply click on Health Records under PhoneTell and then click on the [facility] logo. HOW TO SAFELY DISPOSE OF PRESCRIPTION [...] Call your local pharmacy or go to http://[email or web address].[facility] [facility] [employer]/[email or web address] to find one close to you.3.Make use of household items: Use cat litter or old coffee grounds to dispose medications if other options arenot available. Mix your drugs with these household products, seal them in an airtight container andthrow it into the garbage. Call [facility]: [phone] to be sure your drugs can be [...] aware that I should contact my doctor. Patient/Auxiliary Equipment Tender Signature: Date/Time: Relationship to Patient: Witness Name/Signature: Date/Time: [facility]03-15-2023 Note ORIGINAL EXAMINATION: CT OF THE ABDOMEN [...] Sign Date: 08/28/2022 9:32:42 PM Ordering Provider: [facility]03-15-2023 Note ORIGINAL EXAMINATION: CT OF THE [...] Sign Date: 08/28/2022 9:32:42 PM [facility]ing Provider[facility] Hospital Discharge instructions Patient Education 08/18/2022 15:55:37 [...] up Rapid heart rate Shortness of breath 4802-1190 [employer]. [address] [place] [address]. All rights reserved. This information is not intended as a substitute for professional medical care. Always follow yourhealthcare professional's instructions. Follow Up Care 08/18/2022 11:30:43 With:AARON DUQUE MD, Surgery Address: [address] [facility] [place] [address] [phone] When:2-[address] [facility] 03-05-2023 Note ORIGINAL EXAMINATION: CT OF [...] 08/18/2022 4:08:21 PM Ordering Provider: JONELLE GERARD [facility] [id number] Emergency department Discharge summary Discharge Instructions Thank you for allowing [facility] to assist you with your healthcare needs. [...] Surgery When Within 2-4 days Where: [address] [facility] [address]- [phone] Allergies Keflex Keppra (Rash) Tape, Paper (Rash) morphine (Rash) naproxen Medications Please ask your primary doctor or pharmacist before taking any other medication not listed, including over the counter drugs, herbal medications, vitamins and or supplements as they may interact withyour home medications. What How Much When Why Instructions Last Dose New acetaminophen-hydrocodone (Bexar 325- 5 mg oral tablet) 1 tab(s) [...] up Rapid heart rate Shortness of breath 8520-3185 [employer]. [address] [place] [address]. All rights reserved. This information is not intended as a substitute for professional medical care. Always follow yourhealthcare professional's instructions. Additional Information VACCINATE! IT SAVES LIVES! Members of the community who have not yet received the COVID-19 vaccine and would like to receive it can visit one of [facility] vaccine clinics. There are many vaccine clinic locations within the [facility]. For locations and available times, please visit www.[email or web address].[place].gov/. It is important to note that some COVID mobile vaccine clinics are held outdoors and may be canceled in rainy or stormy conditions. To learn more about pediatric vaccinations (ages 5-11), we invite you to visit the [facility] webpage. https://www.[facility].org/pages/0071-Hjuxf-Ukdoulxtteh-Mcxrazhfdv-Jsjyn-Cmv stions.htmlTo learn more about the COVID-19 vaccine, we invite you to visit the CDC website for a list of frequently asked questions. https://www.cdc.gov/coronavirus/2019-ncov/vaccines/faq.html [facility] [employer] [facility] Patient Portal Access Instructions: Stay connected with your healthcare team and access your personal medical information anytime with the [facility] Patient Portal. If you would like a full copy of your medical records please contact the [facility] Medical Records Department Friday through Friday between 8a.m. and 4:30p.m. Please follow the directions below to access the portal: 1.Access the email account you provided upon registration to the [facility].2.Look for an invitation email from [facility].3.Open the email and access the invitation link: Accept Invitation to [facility]4.Fill in the required vegas to create your account. Sign into www.Abigail Stewart with your username and password that you [...] you will allow to register on the [facility] Patient Portal for access to your information. You can also access the [facility] Patient Portal on the [employer] yen. Simply click on Health Records under HealthData and then click on the [facility] logo. HOW TO SAFELY DISPOSE OF PRESCRIPTION [...] Call your local pharmacy or go to [email or web address] to find one close to you.3.Make use of household items: Use cat litter or old coffee grounds to dispose medications if other options arenot available. Mix your drugs with these household products, seal them in an airtight container andthrow it into the garbage. Call [facility]: [phone] to be sure your drugs can be [...] aware that I should contact my doctor. 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 Note ORIGINAL EXAMINATION: CT OF THE ABDOMEN [...] Date: 08/18/2022 4:08:21 PM Ordering Provider[id number] Hospital Discharge instructions Patient Education 07/22/2022 13:14:21 [...] stores. You don t need a prescription. [phone] [employer]. [address] [place] [address]. All rights reserved. This information is not intended as a substitute for professional medical care. Always follow yourhealthcare professional's instructions. Follow Up Care 07/22/2022 10:03:39 With:Call Physician Referral Address:Unknown When:2-4 days With:Follow up with primary care provider Address:Unknown When:2-4 days [facility] 02-06-2023 Note Discharge Instructions Thank you for allowing [facility] to assist you with your healthcare needs. [...] Why Instructions Last Dose Unchanged acetaminophen- hydrocodone (Bexar 325- 5 mg oral tablet) 1 tab(s) [...] stores. You don t need a prescription. [phone] [employer]. [address] [place] [address]. All rights reserved. This information is not intended as a substitute for professional medical care. Always follow yourhealthcare professional's instructions. Additional Information VACCINATE! IT SAVES LIVES! Members of the community who have not yet received the COVID-19 vaccine and would like to receive it can visit one of [facility] vaccine clinics. There are many vaccine clinic locations within the [facility]. For locations and available times, please visit [email or web address]. It is important to note that some COVID mobile vaccine clinics are held outdoors and may be canceled in rainy orstormy conditions. To learn more about pediatric vaccinations (ages 5-11), we invite you to visit the [facility] webpage. [email or web address] [email or web address] learn more about the COVID-19 vaccine, we invite you to visit the [facility] website for a list of frequently asked questions. [email or web address] _[email or web address] [facility] [employer] Patient Portal Access Instructions: Stay connected with your healthcare team and access your personal medical information anytime with the [facility] Patient Portal. If you would like a full copy of your medical records please contact the [facility] Medical Records Department Friday through Friday between 8a.m. and 4:30p.m. Please follow the directions below to access the portal: 1.Access the email account you provided upon registration to the [facility].2.Look for an invitation email from [facility].3.Open the email and access the invitation link: Accept Invitation to [facility]4.Fill in the required vegas to create your account. Sign into [email or web address] with your username and password that you [...] you will allow to register on the [facility] [employer] Patient Portal for access to your information. You can also access the [facility] Patient Portal on the [employer]. Simply click on Health Records under PhoneTell and then click on the [facility] logo. HOW TO SAFELY DISPOSE OF PRESCRIPTION [...] Call your local pharmacy or go to [email or web address] to find one close to you.3.Make use of household items: Use cat litter or old coffee grounds to dispose medications if other options arenot available. Mix your drugs with these household products, seal them in an airtight container andthrow it into the garbage. Call [facility]: [phone] to be sure your drugs can be [...] aware that I should contact my doctor. Patient/Auxiliary Equipment Tender Signature: Date/Time: Relationship to Patient: Witness Name/Signature: Date/Time: [facility]02-06-2023 Surgery Consult note Date of Service 07/22/2022 Reason for Consultation Nausea and vomiting x24 to [address] Blanco Shaw History of Present Illness 42-year-old male who underwent an open repair of a recurrent umbilical/ventral hernia with anteriorcomponent separation here at [facility] 4 days ago. The patient states that [...] He admits that he was taking his Bexar on schedule every 6 hours and not [...] vomiting due to the regular use of Bexar taking it as scheduled every 6 hours [...] works for him. Avoid using any further Bexar unless absolutely necessary and take regular doses of Tylenol alternating with ibuprofen. As his nausea resolves hopefully over the next couple days he can reintroduce solid food. Slowly. He will have a follow-up on in the office. A prescription for Zofran has been sent to his pharmacy which he can potato picker and use as needed. I donot think [...] Medications Inpatient No active inpatient medications Home Bexar 325- 5 mg oral tablet, 1 tab(s), [...] AARON DUQUE MD on 07/22/2022 01:23 PM [facility]02-06-2023 Note ORIGINAL EXAMINATION: CT OF THE ABDOMEN [...] Sign Date: 07/22/2022 11:41:58 AM Ordering Provider: [facility]02[facility]06[facility]2023 Note ORIGINAL EXAMINATION: CT OF THE [...] Sign Date: 07/22/2022 11:41:58 AM Ordering Provider: [facility]02-02[facility]23 Hospital Discharge instructions Patient Education 07/18/2022 [...] 06/21/2019 Elsevier Patient Education 2020 Elsevier Inc. 07/18/2022 11:53:21 How to Use an [...] as possible. If the spirometer includes a call or contact centre coach indicator, use this to guide you [...] 10/13/2007 Document Revised: 06/25/2018 Document Reviewed: 04/15/2018 Notice Technologies Patient Education 2020 [employer]. 07/18/2022 11:45:57 Surgical Drain Home Care Surgical [...] placed at your back, or any other spwp-de-vjajq area, ask another person to assist you [...] and water are not available, use hand director script. 3.Remove the old dressing. Avoid using scissors [...] and water are not available, use hand director script. 3.Loosen any pins or clips that hold [...] placed at your back, or any other mfst-wc-ocwft area, ask another person to assist you. Contact your health care provider if you have redness, swelling, or pain around your drain area. This information is not intended to replace advice given to you by your health care provider. Make sure you discuss any questions you have with your health care provider. Document Released: 05/30/2001 Document Revised: 07/07/2019 Document Reviewed: 07/07/2019 ElseInfoGin Patient Education 2019 [employer]. 07/18/2022 11:45:56 8- Ryan Pantoja Drain (03/2018)(CUSTOM) [...] Document Reviewed: 06/03/2014 ExitCare Patient Information 2015 [employer]. This information is not intended to replace [...] garbage bag. Soap and water, or hand director script. Wound cleanser or salt-water solution (saline). New [...] soap and water are notavailable, use hand director script. 3.Set up a clean station for wound [...] soap and water are notavailable, use hand director script. Clean your wound Wear gloves, protective clothing, [...] soap and water are notavailable, use hand director script. Apply new dressing Wear gloves, protective clothing, [...] soap and water are notavailable, use hand director script. 8.Turn the pump back on. The sponge dressing should collapse. Do not change the settings on the machine without talking to a health care provider. 9.Replace the container in the pump that collects fluid if it is full. Replace the container per the electrophysiology technologist's instructions or at least once a week, [...] all clamps are open. Do not use ztcf-wyl-lnhbnxr medicated or antiseptic creams, sprays, liquids, or [...] 08/24/2012 Document Revised: 09/24/2019 Document Reviewed: 08/20/2019 Notice Technologies Patient Education 2020 [employer]. 07/18/2022 11:39:25 Nausea and Vomiting, Adult Nausea [...] water added (diluted fruit juice). Eat bland, igxk-gt-ohocig foods in small amounts as you are able. These foods include bananas, applesauce, rice, lean meats, toast, and crackers. Avoid fluids that contain a lot of sugar or caffeine, such as energy drinks, sports drinks, and soda. Avoid alcohol. Avoid spicy or fatty foods. General instructions Take rxgf-wgd-odvooeo and prescription medicines only as told by your health care provider. Drink enough fluid to keep your urine pale yellow. Wash your hands often using soap and water. If soap and water are not available, use hand director script. Make sure that all people in your [...] eating and drinking to prevent dehydration. Take rzlb-flp-hnnncfu and prescription medicines only as told by [...] 06/02/2006 Document Revised: 09/24/2019 Document Reviewed: 11/10/2018 Notice Technologies Patient Education 2020 [employer]. 07/18/2022 11:39:15 Monitored Anesthesia Care, Care After [...] before eating solid foods. General instructions Take bjcs-ukt-dmrqmfm and prescription medicines only as told by [...] 09/22/2016 Document Revised: 08/31/2018 Document Reviewed: 09/22/2016 Notice Technologies Patient Education 2020 [employer]. 07/18/2022 11:39:09 Open Hernia Repair, Adult, Care [...] and water are not available, use hand director script. ?Change your dressing as told by your [...] your urine clear or pale yellow. ?Take wslc-neu-qemnejj or prescription medicines. ?Eat foods that are high in fiber, such as fresh fruits and vegetables, whole grains, and beans. ?Limit foods that are high in fat and processed sugars, such as fried and sweet foods. Take uake-dig-tzuxdnl and prescription medicines only as told by [...] 12/20/2005 Document Revised: 05/15/2018 Document Reviewed: 11/13/2016 Notice Technologies Patient Education 2020 [employer]. Follow Up Care 07/02/2022 10:17:34 With:AARON DUQUE MD, Surgery Address: [address] [facility] [place] [address] [phone] When:07/25/2022 10:00:00 Comments[facility] Summary of episode note Discharge Instructions Thank you for allowing [facility] to assist you with your healthcare needs. The following is importantdischarge information regarding your hospital visit. Your Care Team AARON DUQUE MD Your Diagnosis Acute post-operative pain What to do next Follow Up Appointments Follow Up with AARON DUQUE MD, Surgery When In 2 weeks Why: Call office to schedule follow up appointment. Where: [address] [place] [address] [phone] The Following Activity and Diet Have Been Ordered for You Discharge Activity - Ordered -- Sexual Lely Restricted No bending, twisting, crawling or squatt, [...] When Why Instructions Last Dose New acetaminophen-hydrocodone (Bexar 325- 5 mg oral tablet) 1 tab(s) by mouth Every 4 hours as needed for Pain, scale 4-6 Acute post-operative pain Duration: 7 Days Pickup at [facility]/pharmacy #[id number] Unchanged carBAMazepine (TEGretol 200 mg oral tablet) 3 tab(s) by mouth Two (2) times a day Seizure Post-operative state s/p umbilical hernia repair, possible seizure following surgery Pharmacy Information [facility]/pharmacy #[id number]: [address] [place], [place] [phone] Please take this list to your next [...] as possible. If the spirometer includes a call or contact centre coach indicator, use this to guide you [...] 10/13/2007 Document Revised: 06/25/2018 Document Reviewed: 04/15/2018 ElseInfoGin Patient Education 2020 Notice Technologies Inc. Surgical Drain Home Care Surgical drains [...] placed at your back, or any other askz-al-nemcq area, ask another person to assist you [...] and water are not available, use hand director script. 3. Remove the old dressing. Avoid using [...] and water are not available, use hand director script. 3. Loosen any pins or clips that [...] placed at your back, or any other vemn-cn-nzkbi area, ask another person to assist you. Contact your health care provider if you have redness, swelling, or pain around your drain area. This information is not intended to replace advice given to you by your health care provider. Make sure you discuss any questions you have with your health care provider. Document Released: 05/30/2001 Document Revised: 07/07/2019 Document Reviewed: 07/07/2019 ElseInfoGin Patient Education 2019 [employer]. Ryan Pantoja Drain Patient Education After surgery, [...] Document Reviewed: 06/03/2014 ExitCare Patient Information 2015 [employer]ing. This information is not intended to replace [...] garbage bag. Soap and water, or hand director script. Wound cleanser or salt-water solution (saline). New [...] and water are not available, use hand director script. 3. Set up a clean station for [...] and water are not available, use hand director script. Clean your wound Wear gloves, protective clothing, [...] and water are not available, use hand director script. Apply new dressing Wear gloves, protective clothing, [...] and water are not available, use hand director script. 8. Turn the pump back on. The sponge dressing should collapse. Do not change the settings on the machine without talking to a health care provider. 9. Replace the container in the pump that collects fluid if it is full. Replace the container per the electrophysiology technologist's instructions or at least once a week, [...] all clamps are open. Do not use kyrd-aja-cedqdng medicated or antiseptic creams, sprays, liquids, or [...] 08/24/2012 Document Revised: 09/24/2019 Document Reviewed: 08/20/2019 Elsevier Patient Education 2020 Notice Technologies Inc. Nausea and Vomiting, Adult Nausea is [...] water added (diluted fruit juice). Eat bland, knyw-fi-fanxdi foods in small amounts as you are able. These foods include bananas, applesauce, rice, lean meats, toast, and crackers. Avoid fluids that contain a lot of sugar or caffeine, such as energy drinks, sports drinks, and soda. Avoid alcohol. Avoid spicy or fatty foods. General instructions Take snhz-sky-nrjltbi and prescription medicines only as told by your health care provider. Drink enough fluid to keep your urine pale yellow. Wash your hands often using soap and water. If soap and water are not available, use hand director script. Make sure that all people in your [...] eating and drinking to prevent dehydration. Take xywe-bmu-qvbyncb and prescription medicines only as told by [...] 06/02/2006 Document Revised: 09/24/2019 Document Reviewed: 11/10/2018 Notice Technologies Patient Education 2020 [employer]. Monitored Anesthesia Care, Care After These instructions [...] before eating solid foods. General instructions Take veuu-hub-usjjfrh and prescription medicines only as told by [...] 09/22/2016 Document Revised: 08/31/2018 Document Reviewed: 09/22/2016 Notice Technologies Patient Education 2020 [employer] Inc. Open Hernia Repair, Adult, Care After [...] and water are not available, use hand director script. ? Change your dressing as told by [...] urine clear or pale yellow. ? Take kkcj-zpz-pfwjuny or prescription medicines. ? Eat foods that are high in fiber, such as fresh fruits and vegetables, whole grains, and beans. ? Limit foods that are high in fat and processed sugars, such as fried and sweet foods. Take ybds-xmw-pnlnbfq and prescription medicines only as told by [...] 12/20/2005 Document Revised: 05/15/2018 Document Reviewed: 11/13/2016 ElseInfoGin Patient Education 2020 Notice Technologies Inc. Additional Information VACCINATE! IT SAVES LIVES! Members of the community who have not yet received the COVID-19 vaccine and would like to receive it can visit one of [facility] vaccine clinics. There are many vaccine clinic locations within the [facility]. For locations and available times, please visit [email or web address] It is important to note that some COVID mobile vaccine clinics are held outdoors and may be canceled in rainy or stormy conditions. To learn more about pediatric vaccinations (ages 5-11), we invite you to visit the [facility] webpage. [email or web address] [email or web address] learn more about the COVID-19 vaccine, we invite you to visit the [facility] website for a list of frequently asked questions. [email or web address] [facility] [employer] [facility] Patient Portal Access Instructions: Stay connected with your healthcare team and access your personal medical information anytime with the [facility] Patient Portal.If you would like a full copy of your medical records, please contact the [facility] Medical Records Department, Friday through Friday between 8a.m. and 4:30p.m. Please follow the directions below to access the portal: 1.Access the email account you provided upon registration to the [facility].2.Look for an invitation email from [facility].3.Open the email and access the invitation link: Accept Invitation to [facility]4.Fill in the required vegas to create your account. Sign into www.Abigail Stewart with your username and password that you [...] you will allow to register on the [facility] Patient Portal for access to your information. You can also access the [facility] Patient Portal on the [employer] yen. Simply click on Health Records under PhoneTell and then click on the [facility] logo. HOW TO SAFELY DISPOSE OF PRESCRIPTION MEDICATIONS Please use one of the following methods to safely dispose of your unused medications. 1.Use a drug disposal kit: the drug disposal pouch allows you to safely discard your old and unuseddrugs. Ask your nurse to give you one when you are dischar (more content not included)... [facility]02-02-2023 Anesthesiology Consult note Patient: PATRICK KOROMA Age: 42 years Sex: Male : 1980 Associated Diagnoses: None Author: SOFÍA OROZCO Preoperative Information Time of last food or [...] list: Medical Acid reflux / SNOMED CT 379219063 / Confirmed 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 / SNOMED CT [id number] / Confirmed Fall / SNOMED CT 9854901 / Confirmed Electric shock / SNOMED CT 0074919163 / Confirmed Full dentures / SNOMED CT 228314512 / Confirmed Postprocedural hematoma of skin and subcutaneous tissue following other procedure / SNOMED CT 425155840 / Confirmed Seizure / SNOMED CT 554249520 / Confirmed TIA / SNOMED CT 314474570 / Confirmed Umbilical hernia / SNOMED CT 3622716971 / Confirmed, Active Problems (10) Acid reflux 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 Electric shock Fall Full dentures Postprocedural hematoma of skin and subcutaneous tissue following other procedure Seizure TIA Tobacco use Umbilical hernia Histories Past Medical History: Active TIA (863060442) Acid reflux (986091608) Seizure (037520266) Family History: Congenital heart disease Brother Stroke Mother Father Procedure history: Repair of recurrent ventral hernia (587294811) on 11/22/2021 at 41 Years. History of repair of umbilical hernia (8284777923) in 2019 at 39 Years. Appendectomy (224391577). 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 Tobacco 2Risk Assessment: High Risk 07/01/2022 Tobacco [...] Signs(last 24 hrs) Last Charted Heart Rate Tzlitiblu14 bpm (JUL 18 08:50) Resp Rate 18 br/min (JUL 18 06:48) PUX910 mmHg (JUL 18 08:50) DBP68 mmHg (JUL 18 08:50) Measurements from flowsheet : Measurements 07/18/2022 6:48 EST Height 188 cm Admission Weight 134 kg [place] Body Weight 82.24 kg Admission Body Mass [...] Method N/A 07/18/2022 8:02 EST SN - NE - Medication MARCAINE BUPIVACAINE 0.5% 30ML SN - NE - Route of Administration Local SN - NE - Route of Administration Local SN - NE - By (Single) SN - NE - By (Single) SN - NE - By (Single) SN - NE - By (Single) 07/18/2022 7:57 EST SN - PP - Body Position Supine Standard Intra-op 07/18/2022 7:56 EST SN - PTCare - Anti-thromboembolism Ayla Sequential Compression Device (SCD) 07/18/2022 7:49 EST SN - CAt - Case Attendee SN - CAt - Case Attendee SN - CAt - Case Attendee SN - CAt - Case Attendee SN - CAt - Role Performed INTERNET DESIGNER SN - CAt - Role Performed Employment Legal Assistant 1 07/18/2022 7:30 EST Primary Pain Intensity [...] Surgeon SN - CAt - Role Performed Hot Roll Laminator 1 SN - CAt - Role Performed Scrub 1 07/18/2022 7:12 EST Infectious Disease Symptoms Patient states no symptoms Safety Brochure Information Reviewed Unable to complete [facility] Video Viewed No Teaching Evaluation Needs practice/supervision Admission Note-Nursing Same Day Patient History (Modified) 07/18/2022 7:10 EST Lactated Ringers Injection Begin Bag 1,000 mL mL 07/18/2022 6:48 EST Height 188 cm Admission Weight 134 kg [place]oard Body Weight 82.24 kg Admission Body Mass [...] no difficulties Skin Temperature Warm Skin Description [place], Dry Skin Integrity Intact Mucous Membrane Color [place] IV Present Present Continuous IV Infusions LR [...] Cooperative Orientation Oriented x 4 Allergies Yes Administrative Supervisor On Yes Consent Form Signed Yes Patient [...] Void 07/18/2022 7:01 . Assessment and Plan [place] Society of Anesthesiologists (ASA) physical status classification: Class III. Anesthetic Preoperative Plan Premedication: intravenous. Anesthetic technique: General. Induction: intravenously. Maintenance airway: Oral endotracheal tube. Postoperative pain management: Per surgeon. Risks discussed: nausea, vomiting, sore throat. Informed consent: signed by patient. Digitally Signed by SOFÍA OROZCO on 07/18/2022 09:03 AM [facility]01-30-2023 Evaluation + Plan note Future Appointments Diagnostic Tests Pending * [facility] Send out (Blood Specimens) 07/15/22 Future Scheduled Tests Laboratory* Basic Metabolic Panel 11/23/21 * Carbamazepine Level 11/23/21 * Complete Metabolic Panel 11/23/21 [facility] 01-30-2023 Hospital Discharge instructions Patient Education 07/15/2022 [...] told. 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 [address] [place] [address]. All rights reserved. This information is not intended as a substitute for professional medical care. Always follow yourhealthcare professional's instructions. Follow Up Care 07/15/2022 00:22:57 With:CT GRACE Address: When:2-4 days [facility] 01-30-2023 Note Discharge Instructions Thank you for allowing [facility] to assist you with your healthcare needs. [...] told. 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 [address], [place] [address]. All rights reserved. This information is not intended as a substitute for professional medical care. Always follow yourhealthcare professional's instructions. Additional Information VACCINATE! IT SAVES LIVES! Members of the community who have not yet received the COVID-19 vaccine and would like to receive it can visit one of [facility] vaccine clinics. There are many vaccine clinic locations within the [facility]. For locations and available times, please visit [email or web address]. It is important to note that some COVID mobile vaccine clinics are held outdoors and may be canceled in rainy orstormy conditions. To learn more about pediatric vaccinations (ages 5-11), we invite you to visit the [facility] webpage. https://www.[facility].org/pages/2182-Tqrir-Yvaqdfxsqyn-Gtqleiqchd-Pubkv-Sfo stions.htmlTo learn more about the COVID-19 vaccine, we invite you to visit the [facility] website for a list of frequently asked questions. https://Abigail Stewart/assets/Denlqtpz-wwq-Hnvmsloz/yqwyy-Zhvqcwg-Vpgjarnfsh _Asked-Questions.pdf [facility] Patient Portal Access Instructions: Stay connected with your healthcare team and access your personal medical information anytime with the [facility] Patient Portal. If you would like a full copy of your medical records please contact the [facility] Medical Records Department Friday through Friday between 8a.m. and 4:30p.m. Please follow the directions below to access the portal: 1.Access the email account you provided upon registration to the hospital.2.Look for an invitation email from [facility].3.Open the email and access the invitation link: Accept Invitation to [facility]4.Fill in the required vegas to create your account. Sign into www.Abigail Stewart with your username and password that you [...] you will allow to register on the [facility] Patient Portal for access to your information. You can also access the [facility] Patient Portal on the [employer] yen. Simply click on Health Records under PhoneTell and then click on the [facility] logo. HOW TO SAFELY DISPOSE OF PRESCRIPTION [...] Call your local pharmacy or go to [email or web address] to find one close to you.3.Make use of household items: Use cat litter or old coffee grounds to dispose medications if other options arenot available. Mix your drugs with these household products, seal them in an airtight container andthrow it into the garbage. Call [facility]: [phone] to be sure your drugs can be [...] aware that I should contact my doctor. Patient/Auxiliary Equipment Tender Signature: Date/Time: Relationship to Patient: Witness Name/Signature: Date/Time: [facility]01-30-2023 Note ORIGINAL EXAMINATION: CT OF THE HEAD [...] 07/15/2022 1:25:42 AM Ordering Provider: DAVONTE ONEILL [facility]01-30-2023 Note ORIGINAL EXAMINATION: CT OF THE HEAD [...] Sign Date: 07/15/2022 1:25:42 AM Ordering Provider: [facility]01-13-2023 Hospital Discharge instructions Patient Education 06/27/2022 23:32:40 [...] blood pressure monitors at most pharmacies. The [place] [employer] recommends the following guidelines for [...] face You have problems speaking or seeing [phone] [facility] [employer]. [address] [place] [address], [place] [address]. All rights reserved. This information is not [...] or as directed by your healthcare provider [phone] [facility]. [address] [place] [address]. All rights reserved. This information is not [...] foods again, start with small amounts of rslw-gq-qiqoiz, low- fat foods. These include apple sauce, [...] increase stomach acid. Don't use aspirin or fhep-dyf-dslepsd pain and fever medicines, if possible. This includes nonsteroidal anti-inflammatory drugs (NSAIDs). Lose excess weight. Finish eating at least 2 hours before you go to bed or lie down. Raise the head of your bed. 4923-4499 [facility]. [address] [place] [address], [place] [address]. All rights reserved. This information is not [...] the referral doctor. With:AARON DUQUE Address: [address] [facility] [address] [place] [address] [phone] Business (1) When:2-4 days Comments:Schedule an appointment for close follow-up.Continue Tylenol for pain as needed.Use Bexar as prescribed for severe pain as needed.Return to the ED if symptoms worsen. [facility] 01-13-2023 Note Discharge Instructions Thank you for allowing [facility] to assist you with your healthcare needs. [...] Continue Tylenol for pain as needed. Use Bexar as prescribed for severe pain as needed. Return to the ED if symptoms worsen. Where: [address] [facility] [address] [place] [address] [phone] Business (1) Allergies Keflex Keppra (Rash) Tape, Paper (Rash) morphine (Rash) naproxen Medications Please ask your primary doctor or pharmacist before taking any other medication not listed, including over the counter drugs, herbal medications, vitamins and or supplements as they may interact withyour home medications. What How Much When Why Instructions Last Dose New acetaminophen-hydrocodone (Bexar 325- 5 mg oral tablet) 1 tab(s) [...] blood pressure monitors at most pharmacies. The [place] [employer] recommends the following guidelines for [...] face You have problems speaking or seeing 5276-4969 [facility]. [address] [place] [address]. All rights reserved. This information is not [...] or as directed by your healthcare provider 6626-0803 [facility]. [address] [place] [address], [place] [address]. All rights reserved. This information is not [...] foods again, start with small amounts of vmcm-fp-craugm, low- fat foods. These include apple sauce, [...] increase stomach acid. Don't use aspirin or ocll-ivm-uykegvv pain and fever medicines, if possible. This includes nonsteroidal anti-inflammatory drugs (NSAIDs). Lose excess weight. Finish eating at least 2 hours before you go to bed or lie down. Raise the head of your bed. 6507-9256 [employer] [facility]. [address] [place] [address]. All rights reserved. This information is not intended as a substitute for professional medical care. Always follow yourhealthcare professional's instructions. Additional Information VACCINATE! IT SAVES LIVES! Members of the community who have not yet received the COVID-19 vaccine and would like to receive it can visit one of [facility] vaccine clinics. There are many vaccine clinic locations within the [facility]. For locations and available times, please visit [email or web address]. It is important to note that some COVID mobile vaccine clinics are held outdoors and may be canceled in rainy orstormy conditions. To learn more about pediatric vaccinations (ages 5-11), we invite you to visit the [facility] webpage. https://www.[facility].org/pages/6758-Njvsn-Jvmtanokypc-Wivvgehwut-Nthrt-Fhj stions.htmlTo learn more about the COVID-19 vaccine, we invite you to visit the [facility] website for a list of frequently asked questions. https://Whistlestop.Movity/assets/Zuwliism-yay-Xcwqwjaj/wondp-Eoszxcr-Xfuyljrowt _Asked-Questions.pdf [facility] Patient Portal Access Instructions: Stay connected with your healthcare team and access your personal medical information anytime with the [facility] Patient Portal. If you would like a full copy of your medical records please contact the [facility] Medical Records Department Friday through Friday between 8a.m. and 4:30p.m. Please follow the directions below to access the portal: 1.Access the email account you provided upon registration to the [facility].2.Look for an invitation email from [facility].3.Open the email and access the invitation link: Accept Invitation to [facility] [employer]4.Fill in the required vegas to create your account. Sign into www.Abigail Stewart with your username and password that you [...] you will allow to register on the [facility] Patient Portal for access to your information. You can also access the [facility] Patient Portal on the [employer]. Simply click on Health Records under PhoneTell and then click on the [facility] logo. HOW TO SAFELY DISPOSE OF PRESCRIPTION [...] Call your local pharmacy or go to [email or web address].[facility] [facility] [email or web address] to find one close to you.3.Make use of household items: Use cat litter or old coffee grounds to dispose medications if other options arenot available. Mix your drugs with these household products, seal them in an airtight container andthrow it into the garbage. Call [facility]: [phone] to be sure your drugs can be [...] aware that I should contact my doctor. Patient/Auxiliary Equipment Tender Signature: Date/Time: Relationship to Patient: Witness Name/Signature: Date/Time: [facility]01-12-2023 Note ORIGINAL EXAMINATION: CT OF THE ABDOMEN [...] Date: 06/27/2022 11:27:05 PM Ordering Provider: [facility]01-12-2023 Note ORIGINAL EXAMINATION: CT OF [...] Sign Date: 06/27/2022 11:27:05 PM Ordering Provider: [facility]01-05-2023 Hospital Discharge instructions* Discharge Instructions* ERIC Mandel - 06/20/2022 12:31 AM EST Please take medication as prescribed Please follow up with your Physicians as instructed in this discharge paperwork Thank you for choosing [facility] I appreciate your patience Please return to the emergency department if your symptoms worsen, or new symptoms develop as discussed documented in this [facility]01-04-2023 Emergency department Note* ERIC Mandel - 06/19/2022 7:06 PM EST [facility]NCOUNTER Pt Name: [...] patient come from an ECF, SNF, Rehab, Senior Care or other Congregate setting: no (If yes [...] HISTORY Past Medical History: Diagnosis Date Seizures ([facility]) SURGICAL HISTORY Past Surgical History: Procedure [...] upper and lower extremities bilateral with normal aeronautical engineering officer strength, normal plantar flexion and dorsiflexion. Skin: Findings: No erythema or rash. Neurological: General: No focal deficit present. Mental Status: He is oriented to person, place, and time. Comments: Cranial Nerves 2-12 are intact without without any neurological deficits Normal hylrdt-my-kktfet, uzxmsd-mf-yfkq, alternating hands, heel to tong test bilateral [...] 12:30:39 AM PATIENT REFERRED TO: [facility] [address] [facility] [address] Schedule an appointment as soon as possible for a visit in 2 days [facility] [address] [facility] [phone] Schedule an appointment as soon as possible for a visit in 1 week [facility] [address] [facility] [address] Go to If symptoms worsen DISCHARGE MEDICATIONS: New Prescriptions No medications on file (Please note: Portions of this note were completed with a voice recognition program. Efforts were made to edit thedictations but occasionally words and phrases are mis-transcribed.) Form v2016.J.5-cn ERIC Mandel (electronically signed) Emergency Medicine Provider ERIC Mandel 06/20/224 ERIC Mandel 06/20/22 0038 documented in this [facility]01-04-2023 Physician Emergency department Note* ERIC Mandel - 06/19/2022 7:06 PM EST [facility] ENCOUNTER Pt Name: [...] patient come from an ECF, SNF, Rehab, Senior Care or other Congregate setting: no (If yes [...] upper and lower extremities bilateral with normal aeronautical engineering officer strength, normal plantar flexion and dorsiflexion. Skin: Findings: No erythema or rash. Neurological: General: No focal deficit present. Mental Status: He is oriented to person, place, and time. Comments: Cranial Nerves 2-12 are intact without without any neurological deficits Normal cktqnj-bv-zmlfzm, edwvoq-uj-vyxf, alternating hands, heel to tong test bilateral [...] none Procedures FINAL IMPRESSION 1. Seizure (CMS/HCC) ([facility]) DISPOSITION/PLAN DISPOSITION Discharge 06/20/2022 12:30:39 AM PATIENT REFERRED TO: [facility] [address] [facility] [address] Schedule an appointment as soon as possible for a visit in 2 days [facility] [address] [facility] [address] Schedule an appointment as soon as possible for a visit in 1 week [facility] [address] [facility] [address] Go to If symptoms worsen DISCHARGE MEDICATIONS: New Prescriptions No medications on file (Please note: Portions of this note were completed with a voice recognition program. Efforts were made to edit thedictations but occasionally words and phrases are mis-transcribed.) Form v2016.J.5-ERIC Ibarra (electronically signed) Emergency Medicine Provider ERIC Mandel 06/20/22 0034 ERIC Mandel 06/20/22 0038 [facility] Phone: [phone] 491-236912-17-2022 Hospital Discharge instructions Patient Education 05/31/2022 23:54:43 [...] or as directed by your healthcare provider [phone] [facility]. [address] [place] [address], [place] [address]. All rights reserved. This information is not [...] blue color of the hand or foot 6429-0493 [facility]. [address] [place] [address]. All rights reserved. This information is not intended as a substitute for professional medical care. Always follow yourhealthcare professional's instructions. Follow Up Care 05/31/2022 21:06:21 With:AARON DUQUE Address: [address] [facility] [address] [place] [address]- [phone] Business (1) When:3-7 days Comments:Schedule appointment for follow-up.Use Tylenol or Motrin for pain as needed.Use Bexar as prescribedfor severe pain as needed.Return to the ED if symptoms worsen. [facility] 12-17-2022 Note Discharge Instructions Thank you for allowing [facility] to assist you with your healthcare needs. [...] or Motrin for pain as needed. Use Bexar as prescribed for severe pain as needed. Return to the ED if symptoms worsen. Where: [address] [facility] [address] [place] [address]- [phone] Business (1) Allergies Keflex Keppra (Rash) Tape, Paper (Rash) morphine (Rash) naproxen Medications Please ask your primary doctor or pharmacist before taking any other medication not listed, including over the counter drugs, herbal medications, vitamins and or supplements as they may interact withyour home medications. What How Much When Why Instructions Last Dose New acetaminophen-hydrocodone (Bexar 325- 5 mg oral tablet) 1 tab(s) [...] or as directed by your healthcare provider 2892-9792 [facility]. [address] [place] [address], [place] [address]. All rights reserved. This information is not [...] blue color of the hand or foot 7033-2735 [facility]. [address] [place] [address]. All rights reserved. This information is not intended as a substitute for professional medical care. Always follow yourhealthcare professional's instructions. Additional Information VACCINATE! IT SAVES LIVES! Members of the community who have not yet received the COVID-19 vaccine and would like to receive it can visit one of [facility] vaccine clinics. There are many vaccine clinic locations within the [facility]. For locations and available times, please visit www.[email or web address]. It is important to note that some COVID mobile vaccine clinics are held outdoors and may be canceled in rainy orstormy conditions. To learn more about pediatric vaccinations (ages 5-11), we invite you to visit the [facility] webpage. https://www.[facility].org/pages/5717-Puoph-Vlftyxcwtuj-Tvjradbzuz-Hbqoi-Ovm stions.htmlTo learn more about the COVID-19 vaccine, we invite you to visit the [facility] website for a list of frequently asked questions. [email or web address]/[email or web address]-[email or web address]-Mwuwhuai/ptkad-Bwbgrqp-Qawhsplluz _Asked-Questions.pdf [facility] [employer] [facility] [employer] Patient Portal Access Instructions: Stay connected with your healthcare team and access your personal medical information anytime with the [facility] Patient Portal. If you would like a full copy of your medical records please contact the [facility] Medical Records Department Friday through Friday between 8a.m. and 4:30p.m. Please follow the directions below to access the portal: 1.Access the email account you provided upon registration to the hospital.2.Look for an invitation email from [facility].3.Open the email and access the invitation link: Accept Invitation to [facility]4.Fill in the required vegas to create your account. Sign into www.Abigail Stewart with your username and password that you [...] you will allow to register on the [facility] Patient Portal for access to your information. You can also access the [facility] Patient Portal on the [employer] yen. Simply click on Health Records under PhoneTell and then click on the [facility] logo. HOW TO SAFELY DISPOSE OF PRESCRIPTION [...] Call your local pharmacy or go to [email or web address].[facility] [facility] [email or web address] to find one close to you.3.Make use of household items: Use cat litter or old coffee grounds to dispose medications if other options arenot available. Mix your drugs with these household products, seal them in an airtight container andthrow it into the garbage. Call [facility]: [phone] to be sure your drugs can be [...] aware that I should contact my doctor. Patient/Auxiliary Equipment Tender Signature: Date/Time: Relationship to Patient: Witness Name/Signature: Date/Time: [facility]12-17-2022 Note ORIGINAL EXAMINATION: CT OF THE ABDOMEN [...] Sign Date: 06/01/2022 12:00:43 AM Ordering Provider: [facility]12-16-2022 Note ORIGINAL EXAMINATION: CT OF THE [...] Sign Date: 06/01/2022 12:00:43 AM Ordering Provider: [facility]12-12-2022 Hospital Discharge instructions Patient Education 05/27/2022 [...] humidified air to open blocked nasal passages. flame annealing machine operator a hot shower or usea vaporizer. [...] mouth Spotted, red, or very sore throat 6556-0386 [facility]. [address] [place] [address]. All rights reserved. This information is not intended as a substitute for professional medical care. Always follow yourhealthcare professional's instructions. Follow Up Care 05/27/2022 17:56:54 With:Go to emergency room if symptoms worsen Address:Unknown When:2-4 days With:Call Physician Referral Address:Unknown When:2-4 days [facility] 12-12-2022 Note ORIGINAL EXAMINATION: ONE XRAY VIEW [...] Sign Date: 05/27/2022 7:25:51 PM Ordering Provider: [facility]12-12-2022 Note Discharge Instructions Thank you for allowing [facility] to assist you with your healthcare needs. [...] humidified air to open blocked nasal passages. flame annealing machine operator a hot shower or usea vaporizer. [...] mouth Spotted, red, or very sore throat 4800-0684 [facility]. [address] [place] [address], [place] [address]. All rights reserved. This information is not intended as a substitute for professional medical care. Always follow yourhealthcare professional's instructions. Additional Information VACCINATE! IT SAVES LIVES! Members of the community who have not yet received the COVID-19 vaccine and would like to receive it can visit one of [facility] vaccine clinics. There are many vaccine clinic locations within the [facility]. For locations and available times, please visit [email or web address]. It is important to note that some COVID mobile vaccine clinics are held outdoors and may be canceled in rainy orstormy conditions. To learn more about pediatric vaccinations (ages 5-11), we invite you to visit the [facility] webpage. https://www.[facility].org/pages/0108-Ztbqm-Mxizyxwiblz-Uzkhgeixsi-Ngyoa-Laj stions.htmlTo learn more about the COVID-19 vaccine, we invite you to visit the [facility] website for a list of frequently asked questions. [email or web address]://[email or web address]/Neszhinq-gyu-Wxayzgow/guebm-Xjmhrgk-Oknjhgqypa _Asked-Questions.pdf [facility] [employer] Patient Portal Access Instructions: Stay connected with your healthcare team and access your personal medical information anytime with the [facility] Patient Portal. If you would like a full copy of your medical records please contact the [facility] Medical Records Department Friday through Friday between 8a.m. and 4:30p.m. Please follow the directions below to access the portal: 1.Access the email account you provided upon registration to the [facility].2.Look for an invitation email from [facility].3.Open the email and access the invitation link: Accept Invitation to [facility]4.Fill in the required vegas to create your account. Sign into www.Abigail Stewart with your username and password that you [...] you will allow to register on the [facility] Patient Portal for access to your information. You can also access the [facility] Patient Portal on the [employer] yen. Simply click on Health Records under PhoneTell and then click on the [facility] logo. HOW TO SAFELY DISPOSE OF PRESCRIPTION [...] Call your local pharmacy or go to http://[email or web address].[facility] [email or web address] to find one close to you.3.Make use of household items: Use cat litter or old coffee grounds to dispose medications if other options arenot available. Mix your drugs with these household products, seal them in an airtight container andthrow it into the garbage. Call [facility]: [phone] to be sure your drugs can be [...] aware that I should contact my doctor. Patient/Auxiliary Equipment Tender Signature: Date/Time: Relationship to Patient: Witness Name/Signature: Date/Time: [facility]12-12-2022 Note ORIGINAL EXAMINATION: ONE XRAY VIEW OF [...] Sign Date: 05/27/2022 7:25:51 PM Ordering Provider: [facility]09-30-2022 Hospital Discharge instructions Patient Education 03/15/2022 [...] the ears or bruising around the eyes [phone] [facility]. [address] [place] [address], [place] [address]. All rights reserved. This information is not intended as a substitute for professional medical care. Always follow yourhealthcare professional's instructions. Follow Up Care 03/14/2022 22:45:58 With:MICHAEL ERICKSON Address: [address] [place] [address] [phone] Business (1) When:2-4 days With:Call Physician Referral Address:Unknown When:2-4 days [facility] 09-30-2022 Note Discharge Instructions Thank you for allowing [facility] to assist you with your healthcare needs. The following is importantdischarge information regarding your hospital visit. Diagnosis from Today's Visit Headache What to Do Next Instructions from Your Care Team No qualifying data available. Post Acute Orders No qualifying data available. You Need to Schedule the Following Appointments Follow Up with MICHAEL ERICKSON When Within 2-4 days Where: [address] [place] [address] [phone] Business (1) Follow Up with Call Physician [...] the ears or bruising around the eyes [phone] [facility]. [address] [place] [address], [place] [address]. All rights reserved. This information is not intended as a substitute for professional medical care. Always follow yourhealthcare professional's instructions. Additional Information VACCINATE! IT SAVES LIVES! Members of the community who have not yet received the COVID-19 vaccine and would like to receive it can visit one of [facility] vaccine clinics. There are many vaccine clinic locations within the [facility]. For locations and available times, please visit [email or web address]. It is important to note that some COVID mobile vaccine clinics are held outdoors and may be canceled in rainy orstormy conditions. To learn more about pediatric vaccinations (ages 5-11), we invite you to visit the [facility] webpage. [email or web address]://[email or web address] [email or web address]/pages/[email or web address]-Jbgyl-Dohrovryyrw-Rvsnvuginm-[email or web address]-Hiz stions.htmlTo learn more about the COVID-19 vaccine, we invite you to visit the [facility] website for a list of frequently asked questions. [email or web address] _[email or web address].pdf [facility] [employer] Patient Portal Access Instructions: Stay connected with your healthcare team and access your personal medical information anytime with the [facility] Patient Portal. If you would like a full copy of your medical records please contact the [facility] Medical Records Department Friday through Friday between 8a.m. and 4:30p.m. Please follow the directions below to access the portal: 1.Access the email account you provided upon registration to the hospital.2.Look for an invitation email from [facility].3.Open the email and access the invitation link: Accept Invitation to [facility]4.Fill in the required vegas to create your account. Sign into www.Abigail Stewart with your username and password that you [...] you will allow to register on the [facility] Patient Portal for access to your information. You can also access the [facility] Patient Portal on the [employer]. Simply click on Health Records under PhoneTell and then click on the [facility] [facility] logo. HOW TO SAFELY DISPOSE OF PRESCRIPTION [...] Call your local pharmacy or go to [email or web address] to find one close to you.3.Make use of household items: Use cat litter or old coffee grounds to dispose medications if other options arenot available. Mix your drugs with these household products, seal them in an airtight container andthrow it into the garbage. Call [facility]: [phone] to be sure your drugs can be [...] aware that I should contact my doctor. Patient/Auxiliary Equipment Tender Signature: Date/Time: Relationship to Patient: Witness Name/Signature: Date/Time: [facility]09-29-2022 Note ORIGINAL EXAMINATION: CT OF THE HEAD [...] Sign Date: 03/14/2022 11:55:41 PM Ordering Provider: [facility]09-29-2022 Note ORIGINAL EXAMINATION: CT OF THE HEAD [...] Sign Date: 03/14/2022 11:55:41 PM Ordering Provider: [place] [id number] Hospital Discharge instructions* Discharge Instructions* Giles Maier [...] Everywhere. * Head Injury: Closed: General Info (Turkish) documented in this encounterSUMMA Work Phone: 1(759) 113-774707-21-2022 History of Present illness Narrative* Ibraihma Schaefer MD - 01/03/2022 12:16 PM EDT [...] repair of his recurrent ventral hernia at [facility] performed by Dr. Aaron Duque. The [...] any other maneuvers. The patient presented to [facility] emergency department on [...] entered by the nurse and reviewed by ia Nursing Notes: Charlie Mera RN 01/03/2022 11:28 [...] applicable. Charlie [facility]era RN [facility]* Charlie Mera RN - 01/03/2022 [...] None Charlie Mera RN [facility] Instructions* Patient Instructions* Charlie Mera RN - 01/03/2022 10:45 AM EDT The following instructions are important for you related to your office visit today with the [facility] General Surgeons. Instructions After HEMATOMA/SEROMA ASPIRATION [...] you should contact our office immediately @ [phone] and ask to be transferred to the General Surgery department. [facility] Hospital Discharge instructions Patient Education 12/21/2021 22:26:10 [...] blue color of the hand or foot [phone] [employer] [place] [address]. All rights reserved. This information is not intended as a substitute for professional medical care. Always follow yourhealthcare professional's instructions. Follow Up Care 12/21/2021 20:37:47 With:AARON DUQUE MD, Surgery Address: [address] [place] [address]- [phone] When:2-4 days [facility] 07-08-2022 Emergency department Discharge summary Discharge Instructions Thank you for allowing [facility] to assist you with your healthcare needs. The following is importantdischarge information regarding your hospital visit. Diagnosis from Today's Visit Hematoma Abdominal pain What to Do Next Instructions from Your Care Team No qualifying data available. Post Acute Orders No qualifying data available. You Need to Schedule the Following Appointments Follow Up with AARON DUQUE MD, Surgery When Within 2-4 days Where: [address] [place] [address] [phone] Allergies Keflex Keppra (Rash) Tape, Paper (Rash) morphine (Rash) naproxen Medications Please ask your primary doctor or pharmacist before taking any other medication not listed, including over the counter drugs, herbal medications, vitamins and or supplements as they may interact withyour home medications. What How Much When Why Instructions Last Dose New acetaminophen-hydrocodone (Bexar 325- 5 mg oral tablet) 1 tab(s) [...] blue color of the hand or foot [phone] [employer]. [address] [place] [address]. All rights reserved. This information is not intended as a substitute for professional medical care. Always follow yourhealthcare professional's instructions. Additional Information VACCINATE! IT SAVES LIVES! Members of the community who have not yet received the COVID-19 vaccine and would like to receive it can visit one of [facility] vaccine clinics. There are many vaccine clinic locations within the [facility]. For locations and available times, please visit [email or web address]. It is important to note that some COVID mobile vaccine clinics are held outdoors and may be canceled in rainy orstormy conditions. To learn more about pediatric vaccinations (ages 5-11), we invite you to visit the [facility] webpage. https://www.[email or web address].org/pages/2316-Gxigp-Avptwvxvtmq-Qgzqufmvjl-Qajhn-Epb stions.htmlTo learn more about the COVID-19 vaccine, we invite you to visit the [facility] website for a list of frequently asked questions. [email or web address] _Asked-[email or web address].pdf [facility] [employer] Patient Portal Access Instructions: Stay connected with your healthcare team and access your personal medical information anytime with the [facility] [employer] Patient Portal. If you would like a full copy of your medical records please contact the [facility] Medical Records Department Friday through Friday between 8a.m. and 4:30p.m. Please follow the directions below to access the portal: 1.Access the email account you provided upon registration to the hospital.2.Look for an invitation email from [facility].3.Open the email and access the invitation link: Accept Invitation to [facility]Master4.Fill in the required vegas to create your account. Sign into [email or web address] with your username and password that you [...] you will allow to register on the [facility] [employer] Patient Portal for access to your information. You can also access the [facility] Patient Portal on the [employer]. Simply click on Health Records under PhoneTell and then click on the [facility] logo. HOW TO SAFELY DISPOSE OF PRESCRIPTION [...] Call your local pharmacy or go to [email or web address] to find one close to you.3.Make use of household items: Use cat litter or old coffee grounds to dispose medications if other options arenot available. Mix your drugs with these household products, seal them in an airtight container andthrow it into the garbage. Call [facility]: [phone] to be sure your drugs can be [...] aware that I should contact my doctor. Patient/Auxiliary Equipment Tender Signature: Date/Time: Relationship to Patient: Witness Name/Signature: Date/Time: [facility]07-08-2022 Note ORIGINAL EXAMINATION: CT OF THE ABDOMEN [...] Date: 12/21/2021 9:56:22 PM Ordering Provider: ANJ[facility]07-08-2022 Note ORIGINAL EXAMINATION: CT OF THE [...] Sign Date: 12/21/2021 9:56:22 PM Ordering Provider: [facility] Hospital Discharge instructions Patient Education 11/30/2021 20:32:24 [...] blue color of the hand or foot 1997-9330 [employer]. [address] [place] [address]. All rights reserved. This information is not intended as a substitute for professional medical care. Always follow yourhealthcare professional's instructions. Follow Up Care 11/30/2021 18:59:24 With:AARON DUQUE Address: [address] [facility] [place] [address]- [phone] Business (1) When:2-4 days Comments:Schedule appointment for follow-up.Ice or cool compresses to the swollen, painful area.Use Tylenol,Advil or Aleve for pain as needed.Use Bexar as prescribed for severe pain as needed.Return to the ED if symptoms worsen [facility] 06-10-2022 Evaluation + Plan note Future Scheduled Tests Laboratory* Basic Metabolic Panel 11/23/21 * Carbamazepine Level 11/23/21 * Complete Metabolic Panel 11/23/21 [facility] 06-10-2022 Evaluation + Plan note Future Appointments Future Scheduled Tests Laboratory* Basic Metabolic Panel 11/23/21 * Carbamazepine Level 11/23/21 * Complete Metabolic Panel 11/23/21 [facility] 06-10-2022 Evaluation + Plan note Future Scheduled Tests Laboratory* Basic Metabolic Panel 11/23/21 * Carbamazepine Level 11/23/21 * Complete Metabolic Panel 11/23/21 Radiology* IR Drainage Peritoneal Abscess Guide 08/20/22 [facility] 04-23-2022 Hospital Discharge instructions Patient Education 10/06/2021 [...] the waistline) or spreads to the back [phone] [employer]. [address] [place] [address]. All rights reserved. This information is not intended as a substitute for professional medical care. Always follow yourhealthcare professional's instructions. Follow Up Care 10/06/2021 14:45:39 With:AARON DUQUE MD, Surgery Address: [address] [facility] [place] [address] [phone] When:2-4 days [facility] Discharge summary Author Guevara Choi [facility] Note Date/Time December 07, 2024 12:1 3am [facility] Medical Records Department [address] [place] [address] Emergency Department Summary 12/07/24 MR#: [id number] Acct: [id number] Name: PATRICK KOROMA Rep #:[id number] : 1980 44 From: Guevara Choi MD PCP: ERIC Anaya Status:REG ER Location: ED HPI History of Present Illness Chief Complaint: Upper Extremity Injury Informant: patient Narrative Narrative: During [facility] patient states he smashed his right thumb between 2 metal poles on accident. Dlpck-nhda-qkgncefn. [facility] Medical History Seroma after procedure Influenza due to influenza virus, type A, human Contact with or suspected exposure to other viral communicable disease Abdominal pain Sprain of left foot Left ankle sprain Strain of left knee Contusion of left knee Seizures Home Medications ?Medication ?Instructions ?Recorded ?Last Taken ?Type NK 04/06/25 Unknown History Allergy/AdvReac Type Severity Reaction Status [...] Reading Location: [facility] Discharge Plan Triage Chief Complaint: Upper Extremity Injury ED Provider: Guevara Choi Dx/Rx/DC Orders Clinical Impression: Contusion of right thumb with damage to nail, initial encounter Instructions: ED Finger or Toe Contusion Prescriptions: No Action NK Primary Care Provider: Viola Starkey NP Referrals: Viola Starkey NP, FACING MACHINE OPERATOR-C [Primary Care Provider] - 10-14 Days if not better Print Language: Turkish Disposition Disposition: Home, Self Care What to do if you have Problems For any increased pain, shortness of breath, bleeding, nausea or vomiting, chestpain, or any unexpected problems, contact your Primary Care Provider. Call [facility] ([phone]) or report to the closest Emergency Room. Call 911 if necessary. 12/07/24 0013 <Electronically signed by Guevara Choi MD> Cosigner Signature (if applicable): CC: ERIC Starkey ~ Signed [facility] Work Phone: Evaluation + Plan note No data available for this section [facility] Evaluation + Plan note Future Appointments Appointment Date:11/01/2021 02:10:00 PM Scheduled Provider:AARON DUQUE MD Location:Gen Surg BA Appointment Type:GS OV Check after Test [facility] Evaluation + Plan note Future Appointments [facility] Evaluation + Plan note Future Appointments Appointment Date:12/06/2021 01:40:00 PM Scheduled Provider:AARON DUQUE MD Location:Gen Surg BA Appointment Type:GS OV Post Op Appointment Date:02/22/2022 10:30:00 AM Scheduled Provider:APPLE CONNROS APRN-IN CLASS SPECIAL EDUCATION TEACHER Location:[facility] Appointment Type:PC Wellness Annual Future Scheduled Tests Laboratory* Basic Metabolic Panel 11/23/21 * Carbamazepine Level 11/23/21 * Complete Metabolic Panel 11/23/21 [facility] Evaluation + Plan note Future Appointments Appointment Date:12/27/2021 01:20:00 PM Scheduled Provider:AARON DUQUE MD Location:Gen Surg BA Appointment Type:GS OV Follow Up Appointment Date:02/22/2022 10:30:00 AM Scheduled Provider:APPLE CONNORS APRN-IN CLASS SPECIAL EDUCATION TEACHER Location:[facility] Appointment Type:PC Wellness Annual Future Scheduled Tests Laboratory* Basic Metabolic Panel 11/23/21 * Carbamazepine Level 11/23/21 * Complete Metabolic Panel 11/23/21 [facility] evaluation + Plan note Future Appointments Appointment Date:07/01/2022 03:20:00 PM Scheduled Provider:AARON DUQUE MD Location:Gen Surg BA Appointment Type:GS OV Future Scheduled Tests Laboratory* Basic Metabolic Panel 11/23/21 * Carbamazepine Level 11/23/21 * Complete Metabolic Panel 11/23/21 [facility] evaluation + Plan note Future Appointments Appointment Date:07/25/2022 10:00:00 AM Scheduled Provider:AVANI CANTOR APRN-IN CLASS SPECIAL EDUCATION TEACHER Location:Gen Surg [facility] Appointment Type:GS OV Post Op Future Scheduled Tests Laboratory* Basic Metabolic Panel 11/23/21 * Carbamazepine Level 11/23/21 * Complete Metabolic Panel 11/23/21 [facility] Evaluation noteNo assessment information available [facility] Work Phone: Evaluation note* Diagnosis Hematoma- Primary Contusion of unspecified site Incisional hernia, without obstruction or gangrene Incisional hernia without mention of obstruction or gangrene [facility] this encounter [facility]* Diagnosis Closed head injury, initial encounter- Primary documented in this encounter [facility] Work Phone: Evaluation note* Diagnosis Injury of right wrist, initial encounter- Primary documented in this encounter [facility] [employer] Work Phone: evaluation note* Diagnosis Acute pain of right shoulder- Primary Strain of right shoulder, initial encounter [facility]* Diagnosis Onset Date Resolution Status Infected hernioplasty mesh a cute [facility] Work Phone: Evaluation note* Diagnosis Left lower quadrant abdominal pain- Primary documented in this encounter [facility] note* Diagnosis Preoperative examination- Primary Preoperative examination, unspecified Infected hernioplasty mesh, sequela [facility]* Diagnosis Abdominal pain, unspecified abdominal location- Primary Preoperative examination Preoperative examination, unspecified Infected hernioplasty mesh, sequela [facility]* Diagnosis Pre-op evaluation- Primary Preoperative examination, unspecified Post traumatic seizure disorder (HCC) Post traumatic seizures Morbid obesity (HCC) Morbid obesity Tobacco use Tobacco use disorder Preoperative examination Preoperative examination, unspecified Infected hernioplasty mesh, sequela [facility]* Diagnosis Left lower quadrant abdominal pain- Primary [facility]* Diagnosis Left lateral abdominal pain- Primary Abdominal pain, unspecified site [facility] this [facility]* Diagnosis Seizure (CMS/HCC) (HCC)- Primary Other convulsions documented in this encounter [facility] note* Diagnosis Periumbilical abdominal pain- Primary Abdominal pain, periumbilic History of abdominal hernia documented in this encounter [facility] Work Phone: Evaluation note* Diagnosis History of abdominal hernia documented in this encounter [facility] Work Phone: Hospital Discharge instructions No data available for this section [facility] Hospital Discharge instructions* Attachments The following attachments cannot be sent through Care Everywhere. * RICE: General Info (Turkish) [facility] Work Phone: Hospital Discharge instructions* Attachments The following attachments cannot be sent through Care Everywhere. * Shoulder Sprain (Turkish) [facility] Work Phone: Hospital Discharge instructions Additional Instructions Please keep your appointment next week with [facility] Work Phone: Hospital Discharge instructions Additional Instructions Your x-ray right shoulder negative. Your clinical exam concerns for biceps tendinitis of the shoulder region. Continue ibuprofen. Finish prednisone as prescribed.[facility] Work Phone: Hospital Discharge instructions Additional Instructions You may wear the sling for comfort but exercise your right shoulder at least 3 times a day to prevent frozen shoulder. Jiow-rhb-mumglil medications as needed for pain. Follow-up with orthopedics if not improving.[facility] Work Phone: Hospital Discharge instructionsAdditional Instructions Call the [facility]. Get the name and office number of the general surgeons there that are hernia tube repairer. Call their office to get an appointment. Motrin and Tylenol for pain.[facility] Work Phone: Progress note No data available for this section [facility] Reason for referral (narrative)No reason for referral information availableWUniversity Hospitals [facility] Work Phone: Reason for visit Narrative* Consultation (Routine) - Authorized Specialty Diagnoses / Procedures Referred By Contac t Referred To Contact General Surgery Diagnoses History of abdominal hernia Jonathan Gonzalez MD [address] [address] Phone: tel: fax: Stephon Benavides MD [address] [facility] Dariela Paiz, [address] [address] Phone: tel: fax: Referral ID Status Reason Start Date Expiration Date Visits Requested Visits Authorized [id number] Authorized Specialty Services Required 07/29/2024 07/29/2025 1 1 [facility] Work Phone: Suycyft note* Daksha Love: PERFORM Event Display: Patient Summary Documents Authored Date: [id number] [facility] summary note* VERONIKA Connors: PERFORM Event Display: Patient Summary Documents Authored Date: [id number] [facility] summary note* VERONIKA Connors: PERFORM Event Display: Patient Summary Documents Authored Date: [id number] [facility] Subqquk of episode note* Barbara Michele RN: PERFORM Event Display: Outpatient Patient Summary Authored Date: [id number] Discharge Instructions Thank you for allowing [facility] to assist you with your healthcare needs. The following is importantdischarge information regarding your hospital visit. Your Care Team AARON DUQUE MD Your Diagnosis Acute post-operative pain What to do next Follow Up Appointments Follow Up with AARON DUQUE MD, Surgery When In 2 weeks Why: Call office to schedule follow up appointment. Where: [address] [facility] [place] [address] [phone] The Following Activity and Diet Have Been Ordered for You Discharge Activity - Ordered -- Sexual Lely Restricted No bending, twisting, crawling or squatt, [...] When Why Instructions Last Dose New acetaminophen-hydrocodone (Bexar 325- 5 mg oral tablet) 1 tab(s) by mouth Every 4 hours as needed for Pain, scale 4-6 Acute post-operative pain Duration: 7 Days Pickup at [facility]/pharmacy #[id number] Unchanged carBAMazepine (TEGretol 200 mg oral tablet) 3 tab(s) by mouth Two (2) times a day Seizure Post-operative state s/p umbilical hernia repair, possible seizure following surgery Pharmacy Information [facility]/pharmacy #[id number]: [address], [place] [phone] Please take this list to your next [...] Document Reviewed: 06/21/2019 Elsevier Patient Education 2020 [employer]. How To Use an Incentive Spirometer [...] as possible. If the spirometer includes a call or contact centre coach indicator, use this to guide you [...] 10/13/2007 Document Revised: 06/25/2018 Document Reviewed: 04/15/2018 ElseInfoGin Patient Education 2020 [employer]. Surgical Drain Home Care Surgical drains are [...] placed at your back, or any other dghe-qa-ivlgv area, ask another person to assist you [...] and water are not available, use hand director script. 3. Remove the old dressing. Avoid using [...] and water are not available, use hand director script. 3. Loosen any pins or clips that [...] placed at your back, or any other ssxb-ve-phdzf area, ask another person to assist you. [...] Document Reviewed: 07/07/2019 Elsevier Patient Education 2019 [employer]. Ryan Pantoja Drain Patient Education After [...] Document Reviewed: 06/03/2014 ExitCare Patient Information 2015 [employer]. This information is not intended to replace [...] garbage bag. Soap and water, or hand director script. Wound cleanser or salt-water solution (saline). New [...] and water are not available, use hand director script. 3. Set up a clean station for [...] and water are not available, use hand director script. Clean your wound Wear gloves, protective clothing, [...] and water are not available, use hand director script. Apply new dressing Wear gloves, protective clothing, [...] and water are not available, use hand director script. 8. Turn the pump back on. The sponge dressing should collapse. Do not change the settings on the machine without talking to a health care provider. 9. Replace the container in the pump that collects fluid if it is full. Replace the container per the electrophysiology technologist's instructions or at least once a week, [...] all clamps are open. Do not use bxob-pgi-qjvkwsw medicated or antiseptic creams, sprays, liquids, or [...] 08/24/2012 Document Revised: 09/24/2019 Document Reviewed: 08/20/2019 [employer] Patient Education 2020 [employer]. Nausea and Vomiting, Adult Nausea is the [...] water added (diluted fruit juice). Eat bland, qdxs-pp-pcxibr foods in small amounts as you are able. These foods include bananas, applesauce, rice, lean meats, toast, and crackers. Avoid fluids that contain a lot of sugar or caffeine, such as energy drinks, sports drinks, and soda. Avoid alcohol. Avoid spicy or fatty foods. General instructions Take mtgo-dik-eusswrx and prescription medicines only as told by your health care provider. Drink enough fluid to keep your urine pale yellow. Wash your hands often using soap and water. If soap and water are not available, use hand director script. Make sure that all people in your [...] eating and drinking to prevent dehydration. Take rzwz-afe-vtnfocy and prescription medicines only as told by [...] 06/02/2006 Document Revised: 09/24/2019 Document Reviewed: 11/10/2018 [employer] Patient Education 2020 [employer] Monitored Anesthesia Care, Care After These [...] before eating solid foods. General instructions Take sols-qzc-mqgdckl and prescription medicines only as told by [...] 09/22/2016 Document Revised: 08/31/2018 Document Reviewed: 09/22/2016 [employer] Patient Education 2020 [employer]. Open Hernia Repair, Adult, Care After This [...] and water are not available, use hand director script. ? Change your dressing as told by [...] urine clear or pale yellow. ? Take rklc-evk-hptlcyh or prescription medicines. ? Eat foods that are high in fiber, such as fresh fruits and vegetables, whole grains, and beans. ? Limit foods that are high in fat and processed sugars, such as fried and sweet foods. Take vozl-aet-ejtxicp and prescription medicines only as told by [...] 12/20/2005 Document Revised: 05/15/2018 Document Reviewed: 11/13/2016 [employer] Patient Education 2020 [employer]. Additional Information VACCINATE! IT SAVES LIVES! Members of the community who have not yet received the COVID-19 vaccine and would like to receive it can visit one of [facility] vaccine clinics. There are many vaccine clinic locations within the [facility]. For locations and available times, please visit [email or web address] It is important to note that some COVID mobile vaccine clinics are held outdoors and may be canceled in rainy or stormy conditions. To learn more about pediatric vaccinations (ages 5-11), we invite you to visit the [facility] webpage. [email or web address] learn more about the COVID-19 vaccine, we invite you to visit the [facility] website for a list of frequently asked questions. [email or web address] [employer] Patient Portal Access Instructions: Stay connected with your healthcare team and access your personal medical information anytime with the [facility] Patient Portal.If you would like a full copy of your medical records, please contact the [facility] Medical Records Department, Friday through Friday between 8a.m. and 4:30p.m. Please follow the directions below to access the portal: 1.Access the email account you provided upon registration to the hospital.2.Look for an invitation email from [facility].3.Open the email and access the invitation link: Accept Invitation to [facility]4.Fill in the required vegas to create your account. Sign into [email or web address] with your username and password that you [...] you will allow to register on the [employer] Patient Portal for access to your information. You can also access the [facility] Patient Portal on the [employer] yen. Simply click on Health Records under PhoneTell and then click on the [facility] logo. HOW TO SAFELY DISPOSE OF PRESCRIPTION [...] Call your local pharmacy or go to http://bit.ly/0T5Ob5f to find one close to you.3.Make use of household items: Use cat litter or old coffee grounds to dispose medications if other options arenot available. Mix your drugs with these household products, seal them in an airtight container andthrow it into the garbage. Call [facility]: [phone] to be sure your drugs can be [...] aware that I should contact my doctor. Patient/Auxiliary Equipment Tender Signature: Date/Time: Relationship to Patient: Witness Name/Signature: Date/Time: [facility] Summary Purpose Family History No Family History [...] No January 01, 2022 6:14pm Power of Cook Mayonnaise No January 01 6:14pm Advance Directive Response Recorded Date/ Time Advance Directives No July 05, 2017 11:20pm Living Will No July 04 12:18am Power of Cook Mayonnaise No July 04, 2023 12:18am Advance Directive Response Recorded Date/ Time Advance Directives No July 05, 2017 11:20pm Living Will No June 01 023 1:14am Power of Cook Mayonnaise No June 01, 2023 1:14am Advance Directive Response Recorded Date/ Time Living Will No August 24, 2024 10:40pm Power of Cook Mayonnaise No August 24 10:40pm Advance Directives No July 06, 2017 12:20am Advance Directive Response Recorded Date/ Time Living Will No August 24, 2024 10:40pm Do you have a Healthcare Power of Cook Mayonnaise? No August 24, 2024 10:40pm Living Will No September 19, 2024 9:34pm Do you have a Healthcare Power of Cook Mayonnaise? No September 19, 2024 9:34pm Advance Directives No July 06, 2017 12:20am Advance Directive Response Recorded Date/ Time Living Will No August 24, 2024 10:40pm Do you have a Healthcare Power of Cook Mayonnaise? No August 24, 2024 10:40pm Living Will No September 19, 2024 9:34pm Do you have a Healthcare Power of Cook Mayonnaise? No September 19, 2024 9:34pm Do you have a Healthcare Power of Cook Mayonnaise? No December 06, 2024 11:19pm Advance Directives No July 06, 2017 12:20am Advance Directive Response Recorded Date/ Time Living Will No August 24, 2024 10:40pm Do you have a Healthcare Power of Cook Mayonnaise? No August 24, 2024 10:40pm Living Will No September 19, 2024 9:34pm Do you have a Healthcare Power of Cook Mayonnaise? No September 19, 2024 9:34pm Do you have a Healthcare Power of Cook Mayonnaise? No December 06, 2024 11:19pm Do you have a Healthcare Power of Cook Mayonnaise? No December 08, 2024 11:45pm Advance Directives No July 06, 2017 12:20am Advance Directive Response Recorded Date/ Time Living Will No September 19, 2024 9:34pm Do you have a Healthcare Power of Cook Mayonnaise? No September 19, 2024 9:34pm Do you have a Healthcare Power of Cook Mayonnaise? No December 06, 2024 11:19pm Do you have a Healthcare Power of Cook Mayonnaise? No December 08, 2024 11:45pm Do you have a Healthcare Power of Cook Mayonnaise? No December 29, 2024 9:30pm Advance Directives No July 06, 2017 12:20am Advance Directive Response Recorded Date/ Time Do you have a Healthcare Power of Cook Mayonnaise? No December 06, 2024 11:19pm Do you have a Healthcare Power of Cook Mayonnaise? No December 08, 2024 11:45pm Do you have a Healthcare Power of Cook Mayonnaise? No December 29, 2024 9:30pm Do you have a Healthcare Power of Cook Mayonnaise? No January 25, 2025 10:34pm Advance Directives No July 06, 2017 12:20am [...] ABD PAIN December 29, 2024 9:21 pm Chief Complaint Admit Date hand injury December 06, 2024 11:1 9pm HERNIA December 08, 2024 11:3 3pm ABD PAIN December 29, 2024 9:21 pm ABD PAIN January 25, 2025 10 :22pm Reason for Referral Specialty Diagnoses / Procedures Referred By Contac t Referred To Contact Neurosurgery Diagnoses Left lower quadrant abdominal pain Procedures CONSULT TO NEUROSURGERY Jese Richardson MD [address] [place] [address] Juliocesar Borrero MD, PhD [address] [place] [address] Referral ID Status Reason Start Date Expiration Date Visits Requested Visits Authorized [id number] Ref Not Required PCP Requested Referral 10/07/2023 10/06/2024 1 1 Specialty Diagnoses / Procedures Referred By Contac t Referred To Contact Diagnoses Preoperative examination Infected hernioplasty mesh, sequela Procedures REFER TO PACC - PRE ANESTHESIA CONSULTATION CLINIC OFFICE/OUTPATIENT [facility] 60 MINUTES Linda Griffiths, SMT MACHINE OPERATOR.IN CLASS SPECIAL EDUCATION TEACHER [address] [id number] Referral ID Status Reason Start Date Expiration Date Visits Requested Visits Authorized [id number] Authorized PCP Requested Referral 07/21/2023 07/20/2024 1 1 Specialty Diagnoses / Procedures Referred By Contac t Referred To Contact [facility] Diagnoses Preoperative examination Infected hernioplasty mesh, sequela Procedures ECG COMPLETE ECG ROUTINE ECG W/LEAST 12 LDS W/I&R Linda Griffiths, B[place].IN CLASS SPECIAL EDUCATION TEACHER [address] [place], [place] [id number] [facility] [place] [address] Referral ID Status Reason Start Date Expiration Date Visits Requested Visits Authorized [id number] Pending Review Auto-Generat ed Referral 07/21/2023 07/20/2024 1 1 Specialty Diagnoses / Procedures Referred By Contac t Referred To Contact Diagnoses Preoperative examination Infected hernioplasty mesh, sequela Procedures CONSULT TO [facility] OFFICE/OUTPATIENT [facility] 60 MINUTES Linda Griffiths, SMT MACHINE OPERATOR.IN CLASS SPECIAL EDUCATION TEACHER [address] [place] [id number] Referral ID Status Reason Start Date Expiration Date Visits Requested Visits Authorized [id number] Authorized PCP Requested Referral 07/21/2023 07/20/2024 1 1 Specialty Diagnoses / Procedures Referred By Contac t Referred To Contact [facility] Diagnoses Left lower quadrant abdominal pain Procedures CONSULT TO [facility] PAIN) OFFICE/OUTPATIENT [facility] 60 MINUTES Linda Griffiths, SMT MACHINE OPERATOR.IN CLASS SPECIAL EDUCATION TEACHER [address] [place] [id number] Referral ID Status Reason Start Date Expiration Date Visits Requested Visits Authorized [id number] Pending Review PCP Requested Referral 07/18/2023 07/17/2024 1 1 Additional Source Comments (unrecognized sect ion and content) No Status Records FoundNo Status Records FoundNo Status Records FoundNo Status Records FoundNo Status Records FoundNo Status Records FoundNo Status Records FoundNo Status Records FoundNo Status Records FoundNo Status Records FoundNo Status Records Found INFORMATION SOURCE (unrecogn ized section and content) DATE CREATED AUTHOR 12/10/2017 [facility] DATE CREATED AUTHOR AUTHOR'S ORGANIZ ATION 12/10/2021 [facility] DATE CREATED AUTHOR AUTHOR'S ORGANIZ ATION 03/18/2022 [facility] DATE CREATED AUTHOR AUTHOR'S ORGANIZ ATION 04/30/2022 [facility] DATE CREATED AUTHOR AUTHOR'S ORGANIZ ATION 06/12/2022 [facility] DATE CREATED AUTHOR AUTHOR'S ORGANIZ ATION 06/15/2022 [facility] DATE CREATED AUTHOR AUTHOR'S ORGANIZ ATION 02/23/2023 [facility] DATE CREATED AUTHOR AUTHOR'S ORGANIZ ATION 10/16/2023 [facility] ([place]) DATE CREATED AUTHOR AUTHOR'S ORGANIZ ATION 11/07/2023 [facility] DATE CREATED AUTHOR AUTHOR'S ORGANIZ ATION 09/12/2024 [facility] DATE CREATED AUTHOR AUTHOR'S ORGANIZ ATION 01/27/2025 [facility] Care Team (unrecognized sect ion and content) Hand Deicer Element Winder Relationship Specialty Start Date End Date Maddison Martin MD [address] [place] [address] PCP - General Internal Medicine 07/08/17 Hand Deicer Element Winder Relationship Specialty Start Date End Date No, [...] Dr. Carlo Shea DO Emergency Provider Active Hand Deicer Element Winder Relationship Specialty Start Date End Date Maddison Martin MD [address] [place] [address] PCP - General Internal Medicine 07/08/17 Jeffery Weber MD [address] [facility] [address] [place] [address] General Surgery 06/13/23 Hand Deicer Element Winder Relationship Specialty Start Date End Date Maddison Martin MD [address] [place] [address] PCP - General Internal Medicine 07/08/17 Jeffery Weber MD [address] [facility] [address] [place] [address] General Surgery 06/13/23 Hand Deicer Element Winder Relationship Specialty Start Date End Date Maddison Martin MD [address] [place] [address] PCP - General Internal Medicine 07/08/17 Jeffery Weber MD [address] [place] [address] General Surgery 06/13/23 Hand Deicer Element Winder Relationship Specialty Start Date End Date Maddison Martin MD [address] [facility] [place] [address] PCP - General Internal Medicine 07/08/17 Jeffery Weber MD [address] [address] General Surgery 06/13/23 Hand Deicer Element Winder Relationship Specialty Start Date End Date Maddison Martin MD [address] [place] [address] PCP - General Internal Medicine 07/08/17 Jeffery Weber MD [address] [address] General Surgery 06/13/23 Hand Deicer Element Winder Relationship Specialty Start Date End Date Maddison Martin MD [address] [place] [address] PCP - General Internal Medicine 07/08/17 Jeffery Weber MD [address] [address] General Surgery 06/13/23 Hand Deicer Element Winder Relationship Specialty Start Date End Date Maddison Martin MD [address] [place] [address] PCP - General Internal Medicine 07/08/17 Jeffery Weber MD [address] [facility] [address] [place] [address] General Surgery 06/13/23 Hand Deicer Element Winder Relationship Specialty Start Date End Date Jonathan Gonzalez MD [address] [place] [address] Surgeon General Surgery 06/21/24 Hand Deicer Element Winder Relationship Specialty Start Date End Date Jonathan Gonzalez MD [address] [place], [place] [address] Surgeon General Surgery 06/21/24 Hand Deicer Element Winder Relationship Specialty Start Date End Date Jonathan Gonzalez MD [address] [place], [place] [id number] Surgeon General Surgery 06/21/24 Team Status: Active [...] Member Role Status Dates Viola Starkey NP, YULI-C Primary Care Provider Active Team Status: Inactive Member Role Status Dates Dr. Cristian Barrera DO Attending Provider Active Start : August 24, 2024 End: August 24, 2024 Dr. Cristian Barrera DO Emergency Provider Active Start : August 24, 2024 End: August 24, 2024 Viola Starkey NP, FACING MACHINE OPERATOR-C Primary Care Provider Active Start: August 24, 2024 End: August 24, 2024 Team Status: Inactive Member Role Status Dates Viola Starkey NP, FACING MACHINE OPERATOR-C Primary Care Provider Active Start: September 19, 2024 End: September 19, 2024 Brian Maldonado MD Referring Provider Active Star t: September 19, 2024 End: September 19, 2024 Brian Maldonado MD Emergency Provider Active Star t: September 19, 2024 End: September 19, 2024 Team Status: Inactive Member Role Status Dates Viola Starkey FACING MACHINE OPERATOR, FACING MACHINE OPERATOR-C Primary Care Provider Active Start: September 19, [...] Inactive Member Role Status Dates Viola Starkey FACING MACHINE OPERATOR, FACING MACHINE OPERATOR-C Primary Care Provider Active Start: December 06, 2024 End: December 07, 2024 Dr. Guevara Choi MD Emergency Provider Active Start: December 06, 2024 End: December 07, 2024 Team Status: Inactive Member Role Status Dates Viola Starkey FACING MACHINE OPERATOR, FACING MACHINE OPERATOR-C Primary Care Provider Active Start: December 08, 2024 End: December 09, 2024 Dr. Guero Baker DO Emergency Provider Active Start: December 08, 2024 End: December 09, 2024 Team Status: Active Member Role/Relationship Status Dates Viola Starkey FACING MACHINE OPERATOR, FACING MACHINE OPERATOR-C Primary Care Provider Active Team Status: Inactive Member Role/Relationship Status Dates Viola Starkey FACING MACHINE OPERATOR, FACING MACHINE OPERATOR-C Primary Care Provider Active Start: September 19, [...] Inactive Member Role/Relationship Status Dates Viola Starkey FACING MACHINE OPERATOR, FACING MACHINE OPERATOR-C Primary Care Provider Active Start: December 06, 2024 End: December 07, 2024 Dr. Guevara Choi MD Attending Provider Active Start: December 06, 2024 End: December 07, 2024 Dr. Guevara Choi MD Emergency Provider Active Start: December 06, 2024 End: December 07, 2024 Team Status: Inactive Member Role/Relationship Status Dates Viola Starkey FACING MACHINE OPERATOR, FACING MACHINE OPERATOR-C Primary Care Provider Active Start: December 08, 2024 End: December 09, 2024 Dr. Gueor Baker DO Attending Provider Active Start: December 08, 2024 End: December 09, 2024 Dr. Guero Baker DO Emergency Provider Active Start: December 08, 2024 End: December 09, 2024 Team Status: Inactive Member Role/Relationship Status Dates Viola Starkey FACING MACHINE OPERATOR, FACING MACHINE OPERATOR-C Primary Care Provider Active Start: December 29, 2024 End: December 29, 2024 Dr. Justin Cordero MD Emergency Provider Active S tart: December 29, 2024 End: December 29, 2024 Team Status: Inactive Member Role/Relationship Status Dates Viola Starkey FACING MACHINE OPERATOR, FACING MACHINE OPERATOR-C Primary Care Provider Active Start: December 06, 2024 End: December 07, 2024 Dr. Guevara Choi MD Attending Provider Active Start: December 06, 2024 End: December 07, 2024 Dr. Guevara Chio MD Emergency Provider Active Start: December 06, 2024 End: December 07, 2024 Team Status: Inactive Member Role/Relationship Status Dates Viola Starkey FACING MACHINE OPERATOR, FACING MACHINE OPERATOR-C Primary Care Provider Active Start: December 08, 2024 End: December 09, 2024 Dr. Guero Baker DO Attending Provider Active Start: December 08, 2024 End: December 09, 2024 Dr. Guero Baker DO Emergency Provider Active Start: December 08, 2024 End: December 09, 2024 Team Status: Inactive Member Role/Relationship Status Dates Viola Starkey FACING MACHINE OPERATOR, FACING MACHINE OPERATOR-C Primary Care Provider Active Start: December 29, 2024 End: December 29, 2024 Dr. Justin Cordero MD Attending Provider Active S tart: December 29, 2024 End: December 29, 2024 Dr. Justin Cordero MD Emergency Provider Active S tart: December 29, 2024 End: December 29, 2024 Team Status: Inactive Member Role/Relationship Status Dates Viola Starkey FACING MACHINE OPERATOR, FACING MACHINE OPERATOR-C Primary Care Provider Active Start: January 25, 2025 End: January 26, 2025 Dr. Guero Baker DO Emergency Provider Active Start: January 25, 2025 End: January 26, 2025 Care Team (unrecognized sect ion and content) [...] or prosecute any alcohol or drug abuse patient.[facility] Center[facility] the event this information is protected by the Federal Confidentiality of Alcohol and Drug Abuse Patient Records regulations: The Federal rules restrict any use of the information to criminally investigate or prosecute any alcohol or drug abuse patient.[facility] CenterIn the event this information is protected by the Federal Confidentiality of Alcohol and Drug Abuse Patient Records regulations: The Federal rules restrict any use of the information to criminally investigate or prosecute any alcohol or drug abuse patient.[facility] CenterIn the event this information is protected by the Federal Confidentiality of Alcohol and Drug Abuse Patient Records regulations: The Federal rules restrict any use of the information to criminally investigate or prosecute any alcohol or drug abuse patient.[facility] CenterIn the event this information is protected by the Federal Confidentiality of Alcohol and Drug Abuse Patient Records regulations: The Federal rules restrict any use of the information to criminally investigate or prosecute any alcohol or drug abuse patient.[facility] CenterIn the event this information is protected by the Federal Confidentiality of Alcohol and Drug Abuse Patient Records regulations: The Federal rules restrict any use of the information to criminally investigate or prosecute any alcohol or drug abuse patient.[facility] CenterIn the event this information is protected by the Federal Confidentiality of Alcohol and Drug Abuse Patient Records regulations: The Federal rules restrict any use of the information to criminally investigate or prosecute any alcohol or drug abuse patient.[facility] CenterIn the event this information is protected by the Federal Confidentiality of Alcohol and Drug Abuse Patient Records regulations: The Federal rules restrict any use of the information to criminally investigate or prosecute any alcohol or drug abuse patient.[facility] Reason for Visit (unrecogniz ed section and [...] By Contac t Referred To Contact [facility] / NEUROLOGY PAIN Diagnoses Left lower quadrant abdominal pain Procedures CONSULT TO [facility] (CHRONIC PAIN) OFFICE/OUTPATIENT NEW HIGH MDM 60 MINUTES Linda Griffiths APRN.IN CLASS SPECIAL EDUCATION TEACHER [address] [place] [address] [facility] [id number] [place] [address] Referral ID Status Reason Start Date Expiration Date V isits Requested Visits Authorized [id number] Closed PCP Requested Referral 07/21/2023 06/15/2024 1 [...] 1,000 mg, Oral, ONCE, 1 dose, On Fri04/03/22 at 1645, Maximum dose of acetaminophen is [...] BE BASED ON THE PRIMARY CLINICAL RECORDS. The [facility]. provides no warranty or guarantee of the accuracy or completeness of information in this document.
[2025-02-17 22:28] LABS: Hematocrit 41.2 % (40-54); Hemoglobin 14.3 g/dL (13.0-16.5); Immature Granulocytes Count 0.050 X10^3/uL (0.0-0.0); Mean Corp Hgb Conc 34.7 g/dL (32-36); Mean Corpuscular Volume 90.5 fL (80-94); Mean Platelet Vol. 9.2 fl (6.2-12.0); NRBC Flagged by Analyzer 0 % (0-5); Platelet Count 320 K/mm3 (150-450); RBC Distribution Width CV 12.8 % (11.6-14.6); RBC Distribution Width SD 42.5 fl (35.1-43.9); Red Blood Count 4.55 M/mm3 (4.6-6.2); White Blood Count 12.9 K/mm3 (4.4-11.0)
[2025-02-17 22:53] LABS: AST(SGOT) 24 U/L (<=37); Alanine Aminotransfer ALT/SGPT 19 U/L (<=46); Albumin, Serum 4.0 g/dL (3.5-5.0); Alkaline Phosphatase 38 U/L (40-129); Anion Gap 12 (5-15); BUN 9 mg/dL (4-19); BUN/Creat Ratio 10.1 RATIO (10-20); Bilirubin, Direct 0.12 mg/dL (0.00-0.30); Calcium,Total 9.0 mg/dL (7.6-11.0); Carbon Dioxide 24.1 mmol/L (21.0-32.0); Chloride 102 mmol/L (98-108); Estimated Creatinine Clearance 159.78 ml/min (50-250); Globulin 3.0 g/dL (2.2-4.2); Glucose 106 mg/dL (70-99); Lipase 50 U/L (13-75); Potassium 3.7 mmol/L (3.3-5.1)
[2025-02-18 00:05] VITALS: BP 136/69; PULSE 90; RESP 18; TEMP 37.1; O2SAT 96
== END 2025-02-18 00:08 | disposition home or self-care (01) ==
PROVIDERS: Emergency Provider Emergency Medicine; PCP Nurse Practitioner Family; Visit Provider Emergency Medicine
DX: R10.13 Epigastric pain (principal); K43.9 Ventral hernia without obstruction or gangrene; Z90.49 Acquired absence of other specified parts of digestive tract; F17.210 Nicotine dependence, cigarettes, uncomplicated
CPT/HCPCS: 80048; 80076; 83605; 83690; 85025; 96361; 96374; 96375; 96376; 99282; A4216; J2405

== ENCOUNTER 2025-02-27 20:50 | Emergency (ER) | payer MEDICAID, SELFPAY ==
[2025-02-27 20:51] VITALS: BP 170/141; PULSE 100; RESP 18; TEMP 37; O2SAT 98; BMI 44.3
--- NOTE | 2025-02-27 21:00 | EDS_ITS ---
HPI History of Present Illness Chief Complaint: Abd Pain [facility] Medical History (Updated 02/27/25 @ 22:[address] Giles Maier, ) Abdominal pain Seroma after procedure Influenza due to influenza virus, type A, human Contact with or suspected exposure to other viral communicable disease Sprain of left foot Left ankle sprain Strain of left knee Contusion of left knee Seizures Home Medications ?Medication ?Instructions ?Recorded ?Last Taken ?Type ondansetron 4 mg disintegrating 4 mg PO Q8H PRN PRN Na usea #10 tabs 02/27/25 Unknown Rx tablet oxycodone 5 mg tablet 5 mg PO Q6H PRN pain 3 days #12 02/27/25 Unknown Rx tabs Allergy/AdvReac Type Severity Reaction Status Date / Time adhesive tape Allergy Hives Verified 02/27/25 20:53 cephalexin monohydrate (From Allergy Anaphylaxis Verified 02/27/25 20:53 Keflex) levetiracetam (From Keppra) Allergy Hives Verified 02/27/25 20:53 morphine Allergy Shortness Verified 02/27/25 20:53 of breath naproxen (From Naprosyn) Allergy Hives Verified 02/27/25 20:53 Family History Grandmother Arthritis Mother Arthritis Seizures Father Colon cancer Diabetes Brother Heart disease Surgical History H/O hernia repair History of appendectomy Social History household members: spouse Smoking Status: Current every day smoker tobacco type: cigarettes alcohol intake: never EXAM Physical Exam Const Vital Signs: 02/27/25 20:51 Temperature 98.6 F Temperature Source Temporal Pulse Rate 100 Respiratory Rate 18 Blood Pressure 170/141 H Blood Pressure Mean 150 Pulse Ox 98 Oxygen Delivery Method Room Air MDM MDM MDM Narrative Medical decision making narrative: HISTORY OF PRESENT ILLNESS: Chief complaint: Abdominal pain 45-year-old male here with concern for abdominal pain. History of large hernia, appendectomy. Notes he follows a specialist at [facility]. Notes he has a surgical evaluation/ operation scheduled for March. He notes worsening pain in the abdomen. Denies vomiting. Denies fever. Last bowel movement was this morning (reported as normal). No urinary complaints. REVIEW OF SYSTEMS: Pertinent positives: Abdominal pain Pertinent negatives: As per [facility] PHYSICAL EXAM: Nursing triage notes reviewed, Vital signs reviewed Constitutional: please see [facility] HENT: MMM Eyes: Pupils equal round and reactive to light, Extraocular muscles intact Neck: No stridor, no JVD, full neck ROM Lungs: Clear to auscultation, No wheezing or rales. No increased work of breathing, no conversational dyspnea, no accessory muscle use, no nasal flaring. No respiratory distress noted Heart: Regular rate and rhythm, No murmurs, No rubs and No gallops, 2+ distal pulses (radial, femoral, posterior tibial) in all extremities Abdomen: Soft, diffuse TTP, slight distention but no rigidity, rebound or guarding, no obvious peritoneal signs, no palpable pulsatile abdominal masses, no auscultated abdominal bruit : No CVAT Extremities: No edema Neuro: No new focal neurological deficits, cranial nerves II through XII intact, 5/5 strength in all present extremities. Intact sensation to light touch in all present extremities, 2+ reflexes bilateral patella tendons. Skin: No rash or lesions noted MEDICAL DECISION MAKING: Chief Complaint: please see [facility] External records reviewed: Seen on 02/2025 for abdominal pain. Reviewed prior imaging studies. Reviewed imaging studies from January 07 which shows Factors affecting care: As per [facility] Social determinants of health: none History obtained from others: Mary? Consults: none [facility] Narrative: The patient was initially hypertensive with a blood pressure 171/141 otherwise afebrile and nontoxic-appearing. Exam with slightly distended diffusely painful abdomen but no obvious peritoneal signs. I considered the following differential diagnosis: AAA, small bowel obstruction, abdominal perforation, appendicitis, pancreatitis, hepatobiliary pathology (acute cholecystitis), mesenteric ischemia, pathology (ie nephrolithiasis, pyelonephritis). I obtained a broad lab and imaging workup to further elucidate etiology the patient's complaint to further determine if the patient was suffering from a life-threatening etiology. Initially treat the patient with IV Dilaudid as he is allergic to morphine, IV Toradol, IV Zofran, and normal saline ALL IMAGES (IF OBTAINED) HAVE BEEN PERSONALLY REVIEWED AND INTERPRETED BY MYSELF. CBC without leukocytosis, severe anemia, no thrombocytopenia. Lactate is wnl indicating no end-organ hypoperfusion and/or hypoxia. CMP without evidence of acute kidney injury, significant electrolyte abnormality, anion gap to suggest end organ hypo-perfusion, no evidence of metabolic acidosis with a normal bicarbonate, no evidence of hepatobiliary obstructive pathology. Lipase is wnl indicating no pancreatic inflammation. CT scan of the abdomen pelvis was read and reviewed personally by myself showed no evidence of obvious obstruction or incarcerated hernia. Awaiting radiologist final read. Radiologist noted CT scan was negative for acute abnormality or surgical process. Repeat evaluation showed improved pain after the above treatments. Repeat abdominal exam remained the same. Patient is appropriate discharge home with close outpatient pain management follow-up and surgery follow-up for definitive repair. The patient and/or family, caregivers express understanding. The patient and/or family, caregivers agrees with the plan. Shared decision making: I will have a discussion with the patient and or visitors regarding risk/benefits of further testing or admission. They will be made aware of of the risk/benefits inherent in this decision they will be given the opportunity to voice understanding. Total critical care time today provided was at least 0 minutes. This excludes separately billable procedures. Critical care time (if documented) is secondary to the patient having high probability of clinically significant/life threatening deterioration in the patient's condition which required my urgent intervention. Impression: 1. Acute on chronic abdominal pain 2. History of ventral hernia Dispo: Discharge home This note was generated with mPort dictation software. It may contain incorrect words, spelling, and punctuation that were not noted in review of the chart prior to signing. Lab Data Labs: Laboratory Results - last 24 hr 02/27/25 21:25 WBC 9.9 RBC 4.29 L Hgb 13.4 Hct 39.4 L MCV 91.8 MCH 31.2 MCHC 34.0 RDW Std Deviation 43.8 RDW Coeff of Nory 13.1 Plt Count 280 MPV 9.5 Immature Gran % (Auto) 0.300 Neut % (Auto) 55.5 Lymph % (Auto) 34.6 Edmunds % (Auto) 6.8 Eos % (Auto) 2.2 Baso % (Auto) 0.6 Absolute Neuts (auto) 5.5 Absolute Lymphs (auto) 3.43 Nucleated RBC % 0 Sodium 140 Potassium 3.8 Chloride 107 Carbon Dioxide 22.6 Anion Gap 11 BUN 12 Creatinine 0.82 Estim Creat Clear Calc 178.28 Est GFR (MDRD) Non-Af 110 BUN/Creatinine Ratio 14.1 Glucose 108 H Lactic Acid 1.5 Calcium 9.3 Total Bilirubin < 0.15 AST 21 ALT 18 Alkaline Phosphatase 34 L Total Protein 6.3 Albumin 3.8 Globulin 2.6 Albumin/Globulin Ratio 1.5 Lipase 37 Radiography Diagnostic Testing: Clinical Impression(s) from Imaging Studies Abdomen/Pelvis CT 02/27/25 21:05 IMPRESSION: NO ACUTE FINDINGS IN THE ABDOMEN OR PELVIS. Reading Location: [facility] Discharge Plan Triage Chief Complaint: Abd Pain ED Provider: Giles Maier Dx/Rx/DC Orders Instructions: ED Hernia (Adult) Prescriptions: New oxycodone 5 mg tablet 5 mg PO Q6H PRN (Reason: pain) 3 Days Qty: 12 0RF ondansetron 4 mg tablet,disintegrating 4 mg PO Q8H PRN PRN (Reason: Nausea) Qty: 10 0RF Primary Care Provider: Viola Starkey NP Referrals: Your Surgeon [Other] Miri Joshi MD [Med Staff - Active Staff] - Viola Starkey NP, [employer]S[facility] [Primary Care Provider] - Activity Restrictions/Additional Instructions: Thank you for trusting us with your care today! Your labs and images are reassuring. Your CT scan did not show evidence of incarcerated or strangulated hernia. Please take Tylenol (2 pills, 650 mg), ibuprofen (2 pills, 400 mg) every 6 hours as needed for pain and fever control. Please take oxycodone for breakthrough pain. Please return to the emergency department if your symptoms change or worsen. Please follow with Your Surgeon and Pain management for further outpatient evaluation and management. Print Language: Uzbek Disposition Disposition: Home, Self Care
--- NOTE | 2025-02-27 21:05 | CT_ITS ---
PROCEDURE: ABDOMEN/PELVIS W IV CONT ONLY 02/27/2025 REASON FOR EXAM: MID ABDOMINAL PAIN, HISTORY OF HERNIA TECHNIQUE: Procedure Code: [id number] Modality: CT Procedure: ABDOMEN/PELVIS W IV CONT ONLY Coronal and Sagittal reconstruction series were provided. CONTRAST: Isovue 370 VOLUME: 100 mL One or more dose reduction techniques were used (e.g., Automated exposure control, adjustment of the mA and/or kV according to patient size, use of iterative reconstruction technique. RADIATION DOSE SUMMARY: CTDlvol: 13.30, 24.18 mGy DLP: 1361.31 mGycm FINDINGS: LUNG BASES: No basilar airspace consolidation or pleural effusion. LIVER: Unremarkable. GALLBLADDER: Unremarkable. No calcified stone. BILE DUCTS: No ductal dilation. PANCREAS: Unremarkable. SPLEEN: Unremarkable. ADRENAL GLANDS: Unremarkable. KIDNEYS: The kidneys enhance symmetrically. Similar-appearing hypodense left renal lesions, the largest is 0.8 cm, likely cysts. No hydronephrosis or hydroureter. STOMACH AND BOWEL: No obstruction or perforation. No wall thickening. No CT evidence of colitis or acute diverticulitis. APPENDIX: The appendix is not definitively seen. RETRO/PERITONEUM: No free fluid. No free air. LYMPH NODES: No lymphadenopathy. PELVIC ORGANS: Unremarkable as visualized. VASCULATURE: No aortic aneurysm. ABDOMINAL WALL AND SOFT TISSUES: Chronic postoperative changes in the ventral abdominal wall with stable moderate-sized midline fat-containing hernia. BONES: No fracture or suspicious osseous abnormality. CT/Abdomen/Pelvis W IV Cont ONLY IMPRESSION: NO ACUTE FINDINGS IN THE ABDOMEN OR PELVIS. Reading Location: [id number]
--- OUTSIDE RECORDS SUMMARY | 2025-02-27 21:15 | XMS RPT_ITS | CCD ---
Author Organization [facility] CliniSynd Care Team Providers Care Digital Experience Manager Name Role Phone JOSH HELTON Unavailable Unavailable MADDISON MARTIN Unavailable Unavailable CIELO ALANIZ Unavailable Unavailable MILDRED GALLARDO Unavailable Unavailable MADDISON MARTIN Unavailable Unavailable MADDISON MARTIN Unavailable Unavailable DR MADDISON MARTIN MD Primary Care Physician PHYSICIAN, NONE Primary Care Physician Unavailab Maddison Cowan MD Primary Care Provider [phone] Unavailable Primary Care Provider Unavailabl e PROVIDER, [...] Care Unavailable OSWALDO JOHNSON Attending Unavailable JITENDRA TURONG Consulting ROCHELLE Washington Attending Unavailable PCP, NO [...] DAVONTE ONEILL MD Attending Unavail able LALITO GIRALDON-REVIEW SPECIALIST, VIOLA Siddiqi Primary Care Unavai lable REICHFIELD [...] Unavailable Dr. Cristian Barrera DO Emergency Provider [phone] VIOLA HERNANDEZ Attending Alireza RAMÍREZ, VIOLA Siddiqi Primary Care Unavai lable SHANIKA TIRADO DO Attending Unavailable LALITO MCCARTY-BERT, VIOLA Siddiqi Primary Care Unavai lable CHOUJAA DORADHA Attending Unavailable LALITO RAMÍREZ, VIOLA Siddiqi Primary Care Unavai labDr. Cristian Marshall Attending Provider Lalito OXYGEN THERAPY TEACHER-C, Viola Primary Care Provider Joel JEONG, Brina Referring Provider Joel JEONG, Brian Emergency Provider Joel JEONG, Brian Attending Provider Jimbo JEONG, Dr. Waterman Emergency Provider Dr. Guero Baker DO Emergency Provider Lalito OXYGEN THERAPY TEACHER-C, [facility] Primary Care Provider Jimbo JEONG, Dr. Waterman Attending Provider Dr. Guero Baker DO Attending Provider [phone] Gil JEONG, Dr. Anderson Emergency Provider Starkey OXYGEN THERAPY TEACHER-C, [facility] Primary Care Provider Gil JEONG, Dr. Anderson Attending Provider Guero Baker Attending Unavailable Starkey, Viola Primary Care Unavailable Starkey, Viola Primary Care Unavailable Cristian Barrera Attending Unavailable Starkey, Viola Primary Care Unavailable Reodiccesar, Brian Attending Unavailable Reodiccesar, rBian Referring Unavailable Guevara Choi Attending Unavailable Starkey, Viola Primary Care Unavailable Guero Baker Attending Unavailable Starkey, Viola Primary Care Unavailable Justin Cordero Attending Unavailable Starkey, Viola Primary Care Unavailable Guero Baker Attending Unavailable Starkey, Viola Primary Care Unavailable Allergies Allergy Classification Reported Allergen(s) Allergy Type Date of Onset Reaction(s) Facility (20 sources) Cephalexin; Translations: [cephalexin] Drug Allergy 11-13-19 17 [facility] (20 sources) levETIRAcetam; Translations: [levetiracetam] Drug Allergy 10-24-[address] [facility] (20 sources) Morphine; Translations: [morphine] Drug Allergy 10-24-19 17 [facility] (20 sources) Naproxen; Translations: [naproxen] Drug Allergy 07-08-19 18 [facility] (20 sources) Tape, Paper Propensity to adverse reactions to substance Rash [facility] (11 sources) Cephalexin; Translations: [cephalexin monohydrate] Drug Allergy 09-24-19 19 Anaphylaxis [facility] (2 sources) PAPER TAPE; Translations: [PAPER TAPE] Allergy to substance 09-24-19 [facility] (9 sources) Adhesive Tape-Silicones; Translations: [ADHESIVE TAPE-SILICONES] Drug Allergy 10-24-19 [facility] (12 sources) Adhesive Tape Propensity to adverse reactions to drug 03-08-[address] [facility] Comment on above: PAPER TAPE (1 source) levETIRAcetam Drug Allergy [facility] (1 source) Morphine Drug Allergy [facility] (1 source) Naproxen Drug Allergy [facility] (2 sources) Levetiracetam Allergy to substance 10-24-19 [facility] (2 sources) Wound Dressing Adhesive Drug Intolerance 03-08-20 [facility] (1 source) Adhesive agent Drug Intolerance 03-08-[address] [facility] (1 source) Adhesive Tape Drug allergy (disorder) 02-18-20 25 [facility] Repository (1 source) levETIRAcetam Drug Allergy 02-18-20 25 [facility] (1 source) Morphine Drug Allergy 02-18-20 25 [facility] (1 source) Naproxen Drug Allergy 02-18-20 25 [facility] Repository Medications Current Medications Medication Drug [...] as needed for pain 12 3 0 February 17, 2025 Abdominal pain Ventral hernia Unspecified abdominal pain Ventral hernia without obstruction or gangrene Start: [...] 26, 2016 11:00pm take 1 capsule by [facility] three times daily gabapentin (NEURONTIN) 100 MG capsule Take 100 mg by mouth 3 times daily. 0 Active Comment on above: Take 1 capsule by [facility] three times daily for 90 days. Take 1 capsule by [facility] three times a day for 90 days. [place] (Nk) (4 sources) Start: [place] (Nk) Active September 19, 2024 12:00am ondansetron [...] June 01, 2023 Start: 07-18-2022 End: 07-25-2022 [place] 325- 5 mg oral tablet Dose = 1 tab(s), Oral, q4h, PRN Pain, scale 4-6, X 7 day(s), # 28 tab(s), 0 Refill(s), Pharmacy: [id number], Acute post-operative pain, 188, cm, 07/18/22 7:07:00 [...] every six hours as needed for pain [place] 325- 5 mg oral tablet Dose = 1 tab(s), Oral, q6h, PRN as needed for pain, X 3 day(s), # 12 tab(s), 0 Refill(s), Hematoma, 134 Start Date: 12/21/21 Stop Date: 12/24/21 Status: Ordered Start: 11-30-2021 End: 12-03-2021 take 1 tablet by mouth every six hours as needed for pain [place] 325- 5 mg oral tablet Dose = 1 tab(s), Oral, q6h, PRN As needed for severe pain, X 3 day(s), # 12 tab(s), 0 Refill(s), Postoperative abdominal pain, 141.1 Start Date: 11/30/21 Stop Date: 12/03/21 Status: Ordered Start: 10-06-2021 End: 10-09-2021 take 1 tablet by mouth every six hours [place] 325- 5 mg oral tablet Dose = 1 tab(s), Oral, q6h, # 12 tab(s), 0 Refill(s), Umbilical hernia, 146.5 Start Date: 10/06/21 Stop Date: 10/09/21 Status: Ordered benzonatate 100 mg oral capsule (9 sources) Non-narcotic Antitussive Start: 05-28-2022 End: 09-19-2024 take 2 capsules by mouth three times daily as needed for cough Benzonatate 100 mg capsule Discontinued 200 mg PO THREE TIMES A DAY as needed for cough 30 May 28, 2022 1:00am September 19, 2024 9:33pm Start: 05-28-2022 take 200 mg by mouth three times daily Benzonatate Active 200 MG PO THREE TIMES A DAY May 28, 2022 12:00am ibuprofen 600 mg oral tablet (17 sources) Nonsteroidal Anti-inflammatory Drug Start: 02-25-2024 End: [...] Comment on above: Take 1 tablet by [facility] once daily. for pain. Take with food. [...] eric padilla predniSONE 20 mg oral tablet (7 sources) Start: 5 End: 5 take 3 tablets by mouth once daily Prednisone 20 mg tablet Discontinued 60 mg PO DAILY 12 0 August 24, 2024 12:00am September 19, 2024 [...] Episodic Complication of device; implant or graft (15 sources) Infected hernioplasty mesh; Translations: [Infection and inflammatory reaction due to other internal prosthetic devices, implants and grafts, initial encounter] Onset: 4 07-04-2023 Episodic Complications of surgical procedures or medical care (20 sources) Postoperative hematoma formation; Translations: [Postoperative hematoma] 12-13-2021 Episodic E Codes: Fall (6 sources) Fall from ladder; Translations: [Fall on and from ladder, initial encounter] 09-19-2024 Episodic E Codes: Fall (20 sources) Fall 09-05-2017 Epilepsy; convulsions (20 sources) Seizure; Translations: [Post traumatic seizures] Onset: 7 09-09-2013 Episodic Esophageal disorders (20 sources) Gastroesophageal reflux disease 09-09-2013 Chronic Essential hypertension (3 sources) Hypertensive disorder; Translations: [Essential (primary) hypertension] 12-17-2024 Chronic Fluid and electrolyte disorders (1 source) Hypo-osmolality and or hyponatremia; Translations: [Hypo-osmolality and hyponatremia] Onset: 3 Episodic Headache; including migraine (2 sources) Headache; including migraine; Translations: [Headache, unspecified] Onset: 2 Immunizations and screening for infectious disease (9 sources) Contact with and (suspected) exposure to other viral communicable diseases; Translations: [Contact with or suspected exposure to other viral communicable disease] 06-12-2023 Episodic Influenza (9 sources) Influenza due to Influenza A virus; Translations: [Influenza due to other identified influenza virus with other respiratory manifestations] 06-12-2023 Episodic Intestinal obstruction without hernia (1 source) Intestinal obstruction; Translations: [Ileus, unspecified] Onset: 3 Episodic Nausea and vomiting (1 source) Nausea and vomiting; Translations: [Nausea with vomiting, unspecified] Onset: 3 Episodic Other aftercare (2 sources) 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; Translations: [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] Onset: 2 Episodic Other bone disease and musculoskeletal deformities (6 sources) Clavicle pain; Translations: [Other specified disorders of bone, shoulder] 09-19-2024 Episodic Other connective tissue disease (7 sources) Tendinitis of long head of biceps [...] injuries and conditions due to external causes (7 sources) Injury of right shoulder; Translations: [Unspecified injury of right shoulder and upper arm, initial encounter] 08-24-2024 Episodic Other lower respiratory disease (1 source) Cough; Translations: [Cough, unspecified] Onset: 2 Episodic Other nervous system disorders (11 sources) Postoperative pain ; Translations: [Other acute [...] of colon 08-20-2023 Episodic Residual codes; unclassified (6 sources) Tobacco use and exposure - finding; [...] Test Name Value Interpretation Reference Range Facility Absolute lymphocyte countOrd ered By: Guero Baker on 02-17-2025 Lymphocytes Auto (Unsp spec) [#/Vol] 3.60 10*3/uL 0.83-4.51 [facility] Absolute neutrophil countOrd ered By: Guero Baker on 02-17-2025 Neutrophils (Bld) [#/Vol] 8.0 10*3/uL High 2.0-7.7 [facility] Anion gap in Serum or Plasma Ordered By: Guero Baker on 02-17-2025 Anion gap [Moles/Vol] 12 mmol/L 5-15 [facility] Automated lymphocyte count a s percentage of total leukocytesOrdered By: Guero Baker on 02-17-2025 Lymphocytes/100 WBC Auto (Unsp spec) 27.8 % - [facility] BUN/creatinine ratioOrdered By: Guero Baker on 02-17-2025 Urea nitrogen/Creatinine [Mass ratio] 10.1 mg/mg 10- [facility] Basic Metabolic Profile (BMP )on 02-17-2025 BUN/CRE 10.1 RATIO Normal - [facility] Comment on above: Performed By: #### L 500.3400, L500.2500, L501.2450, L100.0100, L503.6005 ####[facility] [address] [place], [address] Calcium [Mass/Vol] 9.0 mg/dL Normal 7.6-11.0 [facility] Comment on above: Performed By: #### L 500.3400, L500.2500, L501.2450, L100.0100, L503.6005 ####[facility] [address] [place], [address] Chloride [Moles/Vol] 102 mmol/L Normal 98-108 [facility] Comment on above: Performed By: #### L 500.3400, L500.2500, L501.2450, L100.0100, L503.6005 ####[facility] [address] [place], [address] CO2 [Moles/Vol] 24.1 mmol/L Normal 21.0-32.0 [facility] Comment on above: Performed By: #### L 500.3400, L500.2500, L501.2450, L100.0100, L503.6005 ####[facility] [address] [place], [address] Creatinine [Mass/Vol] 0.91 mg/dL Normal 0.70-1.20 [facility] Comment on above: Performed By: #### L 500.3400, L500.2500, L501.2450, L100.0100, L503.6005 ####[facility] [address] [place], [address] ECRCL 159.78 ml/min Normal 50-250 [facility] Comment on above: Performed By: #### L 500.3400, L500.2500, L501.2450, L100.0100, L503.6005 ####[facility] [address] [place], [address] GAP 12 Normal 5-15 [facility] Comment on above: Performed By: #### L 500.3400, L500.2500, L501.2450, L100.0100, L503.6005 ####[facility] [address] [place], [address] GFR/1.73 sq M.predicted among non-blacks MDRD (S/P/Bld) [Vol rate/Area] 106 mL/min/{1.73_m2} Normal >60 [facility] Comment on above: Result Comment: mL/m in/1.73m2 CKD-EPI Creatinine Equation (2020) Performed By: #### L 500.3400, L500.2500, L501.2450, L100.0100, L503.6005 ####[facility] [address] [place], [address] Glucose [Mass/Vol] 106 mg/dL High 70-99 [facility] Comment on above: Performed By: #### L 500.3400, L500.2500, L501.2450, L100.0100, L503.6005 ####[facility] [address] [place], [address] Potassium [Moles/Vol] 3.7 mmol/L Normal 3.3-5.1 [facility] Comment on above: Performed By: #### L 500.3400, L500.2500, L501.2450, L100.0100, L503.6005 ####[facility] [address] [place], [address] Sodium [Moles/Vol] 138 mmol/L Normal 133-145 [facility] Comment on above: Performed By: #### L 500.3400, L500.2500, L501.2450, L100.0100, L503.6005 ####[facility] [address] [place], [address] Urea nitrogen [Mass/Vol] 9 mg/dL Normal 4-19 [facility] Comment on above: Performed By: #### L 500.3400, L500.2500, L501.2450, L100.0100, L503.6005 ####[facility] [address] [place], [address] Basophil percentageOrdered B y: Guero Baker on 02-17-2025 Basophils/100 WBC (Bld) 0.7 % 0-1 [facility] Bilirubin directOrdered By: Guero Baker on 02-17-2025 Bilirubin.direct [Mass/Vol] 0.12 mg/dL 0.00-0.30 [facility] Bilirubin, totalOrdered By: Guero Baker on 02-17-2025 Bilirubin [Mass/Vol] 0.35 mg/dL 0.00-1.30 [facility] CBC W/Diff, Automatedon Absolute Lymph 3.60 X10 3/uL Normal 0.83-4.51 [facility] Comment on above: Performed By: #### L 500.3400, L500.2500, L501.2450, L100.0100, L503.6005 ####[facility] [address] [place], [address] Absolute Neut 8.0 X10 3/uL High 2.0-7.7 [facility] Comment on above: Performed By: #### L 500.3400, L500.2500, L501.2450, L100.0100, L503.6005 ####[facility] [address] [place], [address] Basophils/100 WBC (Bld) 0.7 % Normal 0-1 [facility] Comment on above: Performed By: #### L 500.3400, L500.2500, L501.2450, L100.0100, L503.6005 ####[facility] [address] [place], [address] Eosinophils/100 WBC (Bld) 2.0 % Normal 0-5 [facility] Comment on above: Performed By: #### L 500.3400, L500.2500, L501.2450, L100.0100, L503.6005 ####[facility] [address] [place], [address] Erythrocyte distribution width (RBC) [Ratio] 12.8 % Normal 11.6-14.6 [facility] Comment on above: Performed By: #### L 500.3400, L500.2500, L501.2450, L100.0100, L503.6005 ####[facility] [address] [place], [address] Hematocrit (Bld) [Volume fraction] 41.2 % Normal 40-54 [facility] Comment on above: Performed By: #### L 500.3400, L500.2500, L501.2450, L100.0100, L503.6005 ####[facility] [address] [place], [address] Hemoglobin (Bld) [Mass/Vol] 14.3 g/dL Normal 13.0-16.5 [facility] Comment on above: Performed By: #### L 500.3400, L500.2500, L501.2450, L100.0100, L503.6005 ####[facility] [address] [place], [address] IG% 0.400 Normal 0.0-0.9 [facility] Comment on above: Result Comment: IG% - Immature Granulocytes (promyelocytes, myelocytes and metamyelocytes) > 1% indicates that a LEFT SHIFT is Present. Performed By: #### L 500.3400, L500.2500, L501.2450, L100.0100, L503.6005 ####[facility] [address] [place], [address] Lymphocytes/100 WBC (Bld) 27.8 % Normal 19-41 [facility] Comment on above: Performed By: #### L 500.3400, L500.2500, L501.2450, L100.0100, L503.6005 ####[facility] [address] [place], [address] MCH (RBC) [Entitic mass] 31.4 pg Normal 27.0-32.0 [facility] Comment on above: Performed By: #### L 500.3400, L500.2500, L501.2450, L100.0100, L503.6005 ####[facility] [address] [place], [address] MCHC (RBC) [Mass/Vol] 34.7 g/dL Normal 32-36 [facility] Comment on above: Performed By: #### L 500.3400, L500.2500, L501.2450, L100.0100, L503.6005 ####[facility] [address] [place], [address] MCV (RBC) [Entitic vol] 90.5 fL Normal 80-94 [facility] Comment on above: Performed By: #### L 500.3400, L500.2500, L501.2450, L100.0100, L503.6005 ####[facility] [address] [place], [address] Monocytes/100 WBC (Bld) 7.0 % Normal 0-10 [facility] Comment on above: Performed By: #### L 500.3400, L500.2500, L501.2450, L100.0100, L503.6005 ####[facility] [address] [place], [address] Neutrophils/100 WBC (Bld) 62.1 % Normal 47-70 [facility] Comment on above: Performed By: #### L 500.3400, L500.2500, L501.2450, L100.0100, L503.6005 ####[facility] [address] [place], [address] Nucleated RBC (Bld) [#/Vol] 0 10*3/uL Normal 0-5 [facility] Comment on above: Performed By: #### L 500.3400, L500.2500, L501.2450, L100.0100, L503.6005 ####[facility] [address] [place], [address] Platelet mean volume (Bld) [Entitic vol] 9.2 fL Normal 6.2-12.0 [facility] Comment on above: Performed By: #### L 500.3400, L500.2500, L501.2450, L100.0100, L503.6005 ####[facility] [address] [place], [address] Platelets (Bld) [#/Vol] 320 10*3/uL Normal 150-450 [facility] Comment on above: Performed By: #### L 500.3400, L500.2500, L501.2450, L100.0100, L503.6005 ####[facility] [address] [place], [address] RBC (Bld) [#/Vol] 4.55 10*6/uL Low 4.6-6.2 [facility] Comment on above: Performed By: #### L 500.3400, L500.2500, L501.2450, L100.0100, L503.6005 ####[facility] [address] [place], [address] RDW SD 42.5 fl Normal 35.1-43.9 [facility] Comment on above: Performed By: #### L 500.3400, L500.2500, L501.2450, L100.0100, L503.6005 ####[facility] [address] [place], [address] WBC (Bld) [#/Vol] 12.9 10*3/uL High 4.4-11.0 [facility] Comment on above: Performed By: #### L 500.3400, L500.2500, L501.2450, L100.0100, L503.6005 ####[facility] [address] [place], [address] Carbon dioxide, total [Moles /volume] in Central venous bloodOrdered By: Guero Baker on 02-17-2025 CO2 [Moles/Vol] 24.1 mmol/L 21.0-32.0 [facility] Chloride assayOrdered By: Maru Baker on 02-17-2025 Chloride [Moles/Vol] 102 mmol/L 98-108 [facility] Emergency Department Summary on 02-17-2025 Emergency Department Summary [facility] Medical Records Department [address] [place] [address] Emergency Department Summary 02/17/25 MR#: [id number] Acct: [id number] Name: PATRICK KOROMA Rep #: [id number] : 1980 45 From: Guero Baker DO PCP: ERIC Anaya Status:DEP ER Location: ED HPI History of Present Illness Chief Complaint: Abd Pain Informant: patient Narrative Narrative: Patient is a 45-year-old male with past medical history of a large ventral hernia. He states he is following with a specialist at [facility] and is scheduled to have the hernia fixed in mid March. He states there has been no fevers chills nausea vomiting diarrhea or constipation. He states has been no recent trauma or excessive activity. However this evening he developed midepigastric abdominal pain that was more intense than his baseline pain from his hernia and secondary to this comes in for evaluation. [facility] Medical History Seroma after procedure Influenza [...] 01/26/25 Unknown Rx mg tablet (Percocet) tabs oxycodone-acetaminoph en 5 mg-325 1 tab PO Q6H PRN pain 3 days #12 0 02/17/25 Unknown Rx mg tablet (Percocet) tabs Allergy/AdvReac Type Severity Reaction Status Date / Time adhesive tape Allergy Hives Verified 02/17/25 21:22 cephalexin monohydrate (From Allergy Anaphylaxis Verified 02/17/25 21:22 Keflex) levetiracetam (From Keppra) Allergy Hives Verified 02/17/25 21:22 morphine Allergy Shortness Verified 02/17/25 21:22 of breath naproxen (From Naprosyn) Allergy Hives Verified 02/17/25 21:22 Family History Grandmother Arthritis Mother Arthritis [...] bruising EXAM Physical Exam Const Vital Signs: 02/17/25 21:21 02/18/25 00:05 Temperature 98.4 F 98.7 F Temperature Source Oral Pulse Rate 116 H 90 Respiratory Rate 18 18 Blood Pressure 156/96 H 136/69 H Blood Pressure Mean 116 91 Pulse Ox 99 96 Oxygen Delivery Method Room Air Positive well nourished, well developed and obese General Appearance ED: well developed; Negative for pallor Nutritional Appearance: obese HEENT HEENT Narrative: Normocephalic atraumatic Eyes PERRL and EOMs intact bilaterally General Eye ED: Negative for scleral icterus Neck supple Resp normal respiratory effort and clear to auscultation bilaterally Cardio regular rhythm Rate: tachycardic and other Other Details: Tachycardic rate with regular rhythm Radial and carotid pulses are equal and symmetric GI non-distended GI Narrative: Abdomen is soft and nondistended with normal active bowel sounds. Patient has a large ventral hernia noted. There is intestine protruding through the site but it appears reducible in nature. No peritoneal signs. No pulsatile mass. Auscultation: normoactive bowel sounds Palpation: soft Back/Spine no CVA tenderness Extremity normal to inspection Neuro oriented x3, CN's II-XII intact bilaterally and no sensory deficits noted Sensorium / Orientation: alert Motor Exam: strength 5/5 throughout Psych mental status grossly normal Skin no rashes or lesions noted and no wounds General Skin Exam: Negative for jaundice or pallor MDM MDM MDM Narrative Medical decision making narrative: Patient arrived to the ER hypertensive but otherwise with stable vitals. He reported midepigastr (more content not included)... Normal [facility] Eosinophil percentageOrdered By: Guero Baker on 02-17-2025 Eosinophils/100 WBC (Bld) 2.0 % 0-5 [facility] Erythrocyte distribution wid th ratioOrdered By: Guero Baker on 02-17-2025 Erythrocyte distribution width (RBC) [Ratio] 12.8 % 11.6-14.6 [facility] Erythrocyte distribution wid th standard deviationOrdered By: Guero Baker on 02-17-2025 Erythrocyte distribution width (RBC) [Ratio] 42.5 fl 35.1-43.9 [facility] Glomerular filtration rate ( GFR) estimation/1.73 sq m using serum, plasma, or whole bOrdered By: Guero Baker on 02-17-2025 GFR/1.73 sq M.predicted among non-blacks MDRD (S/P/Bld) [Vol rate/Area] 106 mL/min/{1.73_m2} >60 [facility] Comment on above: mL/min/1.73m2 CKD-EP I Creatinine Equation (2020) Hematocrit Auto (Bld) [Volum e fraction]Ordered By: Guero Baker on 02-17-2025 Hematocrit (Bld) [Volume fraction] 41.2 % 40-54 [facility] Hemoglobin measurementOrdere d By: Guero Baker on 02-17-2025 Hemoglobin (Bld) [Mass/Vol] 14.3 g/dL 13.0-16.5 [facility] Immature granulocytes/100 WB C Auto (Bld)Ordered By: Guero Baker on 02-17-2025 Immature granulocytes/100 WBC (Bld) 0.400 % 0.0-0.9 [facility] Comment on above: IG% - Immature Granu locytes (promyelocytes, myelocytes and metamyelocytes) > 1% indicates that a LEFT SHIFT is Present. Laboratory - Chemistry and C hemistry - challengeOrdered By: Guero Baker on 02-17-2025 AST [Catalytic activity/Vol] 24 U/L <38 [facility] Lactic Acidon 02-17-2025 Lactate [Moles/Vol] 1.3 mmol/L Normal 0.0-2.0 [facility] Comment on above: Order Comment: Y Performed By: #### L 500.3400, L500.2500, L501.2450, L100.0100, L503.6005 ####[facility] [address] [place], [address] Lactic acid measurementOrder ed By: Guero Baker on 02-17-2025 Lactate [Moles/Vol] 1.3 mmol/L 0.0-2.0 [facility] Lipaseon 02-17-2025 Lipase [Catalytic activity/Vol] 50 U/L Normal 13-75 [facility] Comment on above: Result Comment: Scout kline note: LIPASE revised reference range effective 22. New Lipase methodology. Expected to produce lower values than the previous assay method. NEW Reference Range: 13 - 75 U/L Performed By: #### L 500.3400, L500.2500, L501.2450, L100.0100, L503.6005 ####[facility] [address] [place], [address] Lipase measurementOrdered By : Guero Baker on 02-17-2025 Lipase [Catalytic activity/Vol] 50 U/L 13-75 [facility] Comment on above: Please note:LIPASE r evised reference range effective 22. New Lipase methodology. Expected to produce lower values than the previous assay method. NEW Reference Range: 13 - 75 U/L Liver Profileon 02-17-2025 Albumin [Mass/Vol] 4.0 g/dL Normal 3.5-5.0 [facility] Comment on above: Performed By: #### L 500.3400, L500.2500, L501.2450, L100.0100, L503.6005 ####[facility] [address] [place], [address] ALK PHOS 38 U/L Low 40-129 [facility] Comment on above: Performed By: #### L 500.3400, L500.2500, L501.2450, L100.0100, L503.6005 ####[facility] [address] [place], [address] ALT [Catalytic activity/Vol] 19 U/L Normal <=46 [facility] Comment on above: Performed By: #### L 500.3400, L500.2500, L501.2450, L100.0100, L503.6005 ####[facility] [address] [place], [address] AST [Catalytic activity/Vol] 24 U/L Normal <=37 [facility] Comment on above: Performed By: #### L 500.3400, L500.2500, L501.2450, L100.0100, L503.6005 ####[facility] [address] [place], [address] Bilirubin [Mass/Vol] 0.35 mg/dL Normal 0.00-1.30 [facility] Comment on above: Performed By: #### L 500.3400, L500.2500, L501.2450, L100.0100, L503.6005 ####[facility] [address] [place], [address] Bilirubin.direct [Mass/Vol] 0.12 mg/dL Normal 0.00-0.30 [facility] Comment on above: Performed By: #### L 500.3400, L500.2500, L501.2450, L100.0100, L503.6005 ####[facility] [address] [place], [address] Globulin (S) [Mass/Vol] 3.0 g/dL Normal 2.2-4.2 [facility] Comment on above: Performed By: #### L 500.3400, L500.2500, L501.2450, L100.0100, L503.6005 ####[facility] [address] [place], [address] T PROT 7.0 g/dL Normal 5.9-8.4 [facility] Comment on above: Performed By: #### L 500.3400, L500.2500, L501.2450, L100.0100, L503.6005 ####[facility] [address] [place], [place], [id number] MCV (mean corpuscular volume ) determinationOrdered By: Guero Baker on 02-17-2025 MCV (RBC) [Entitic vol] 90.5 fL 80-94 [facility] Mean corpuscular hemoglobin (MCH) determinationOrdered By: Guero Baker on 02-17-2025 MCH (RBC) [Entitic mass] 31.4 pg 27.0-32.0 [facility] Mean corpuscular hemoglobin concentration (MCHC) determinationOrdered By: Guero Baker on 02-17-2025 MCHC (RBC) [Mass/Vol] 34.7 g/dL 32-36 [facility] Mean platelet volume determi nationOrdered By: Guero Baker on 02-17-2025 Platelet mean volume (Bld) [Entitic vol] 9.2 fL 6.2-12.0 [facility] Monocyte percentageOrdered B y: Guero Baker on 02-17-2025 Monocytes/100 WBC (Bld) 7.0 % 0-10 [facility] Neutrophil percentageOrdered By: Guero Baker on 02-17-2025 Neutrophils/100 WBC (Bld) 62.1 % 47-70 [facility] Nucleated red blood cell per centageOrdered By: Guero Baker on 02-17-2025 Nucleated RBC/100 WBC (Bld) [Ratio] 0 % 0-5 [facility] Platelet countOrdered By: Maru Baker on 02-17-2025 Platelets (Bld) [#/Vol] 320 10*3/uL 150-450 [facility] Potassium measurement (mass/ volume)Ordered By: Guero Baker on 02-17-2025 Potassium (Unsp spec) [Mass/Vol] 3.7 mmol/L 3.3-5.1 [facility] RBC Auto (Bld) [#/Vol]Ordere d By: Guero Baker on 02-17-2025 RBC (Bld) [#/Vol] 4.55 10*6/uL Low 4.6-6.2 [facility] Serum creatinine measurement (mass/volume)Ordered By: Guero Baker on 02-17-2025 Creatinine [Mass/Vol] 0.91 mg/dL 0.70-1.20 [facility] Serum globulin measurementOr dered By: Guero Baker on 02-17-2025 Globulin (S) [Mass/Vol] 3.0 g/dL 2.2-4.2 [facility] Serum glucose measurement (m ass/volume)Ordered By: Guero Baker on 02-17-2025 Glucose [Mass/Vol] 106 mg/dL High 70-99 [facility] Serum or plasma alanine carrera otransferase (ALT) measurementOrdered By: Guero Baker on 02-17-2025 ALT [Catalytic activity/Vol] 19 U/L <47 [facility] Serum or plasma albumin za urement (mass/volume)Ordered By: Guero Baker on 02-17-2025 Albumin [Mass/Vol] 4.0 g/dL 3.5-5.0 [facility] Serum or plasma alkaline carmen sphatase measurementOrdered By: Guero Baker on 02-17-2025 ALP [Catalytic activity/Vol] 38 U/L Low 40-129 [facility] Serum or plasma calcium za urement (mass/volume)Ordered By: Guero Baker on 02-17-2025 Calcium [Mass/Vol] 9.0 mg/dL 7.6-11.0 [facility] Serum or plasma urea nitroge n measurement (mass/volume)Ordered By: Guero Baker on 02-17-2025 Urea nitrogen [Mass/Vol] 9 mg/dL 4-19 [facility] Sodium levelOrdered By: Scott Baker on 02-17-2025 Sodium [Moles/Vol] 138 mmol/L 133-145 [facility] Total proteinOrdered By: Yovani Baker on 02-17-2025 Protein [Mass/Vol] 7.0 g/dL 5.9-8.4 [facility] White blood cell (WBC) count Ordered By: Guero Baker on 02-17-2025 WBC (Bld) [#/Vol] 12.9 10*3/uL High 4.4-11.0 [facility] CBC W/Diff, Automatedon 01-14 PLT EST ADEQUATE Normal ADEQ [facility] Comment on above: Performed By: #### L 500.2500, L500.3400, L100.0100, L501.2450, L503.6005 #### [facility] [address] [place], [address] RED CELL MORPH NORM C+C Normal NORM C C [facility] Comment on above: Performed By: #### L 500.2500, L500.3400, L100.0100, L501.2450, L503.6005 #### [facility] [address] [place], [address] SMEAR COMMENT SCANNED Normal [facility] Comment on above: Performed By: #### L 500.2500, L500.3400, L100.0100, L501.2450, L503.6005 #### [facility] [address] [facility] 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 He denies any fevers or chills or trauma. However he has been having increasing pain along the mid abdomen radiating towards the left that is worse with motion. He states it is not being controlled with apfl-qjs-csdpmrc medications and therefore comes in for evaluation. The patient states that there has been no fevers or chills diarrhea constipation dysuria. He denies any nausea or vomiting either. He denies any known sick contacts [facility] Medical History Seroma after procedure Influenza [...] peritoneal sign (more content not included)... Normal [facility] Absolute lymphocyte countOrd ered By: Guero Baker on 01-25-2025 Lymphocytes Auto (Unsp spec) [#/Vol] 4.28 10*3/uL 0.83-4.51 [facility] Absolute neutrophil countOrd ered By: Guero Baker on 01-25-2025 Neutrophils (Bld) [#/Vol] 6.3 10*3/uL 2.0-7.7 [facility] Anion gap in Serum or Plasma Ordered By: Guero Baker on 01-25-2025 Anion gap [Moles/Vol] 12 mmol/L 5-15 [facility] Automated lymphocyte count a s percentage of total leukocytesOrdered By: Guero Baker on 01-25-2025 Lymphocytes/100 WBC Auto (Unsp spec) 36.6 % 19-41 [facility] BUN/creatinine ratioOrdered By: Guero Baker on 01-25-2025 Urea nitrogen/Creatinine [Mass ratio] 11.4 mg/mg - [facility] Basic Metabolic Profile (BMP )on 01-25-2025 BUN/CRE 11.4 RATIO Normal - [facility] Comment on above: Performed By: #### L 500.2500, L500.3400, L100.0100, L501.2450, L503.6005 ####[facility] [address] [place], [address] Calcium [Mass/Vol] 9.6 mg/dL Normal 7.6-11.0 [facility] Comment on above: Performed By: #### L 500.2500, L500.3400, L100.0100, L501.2450, L503.6005 ####[facility] [address] [place], [address] Chloride [Moles/Vol] 104 mmol/L Normal 98-108 [facility] Comment on above: Performed By: #### L 500.2500, L500.3400, L100.0100, L501.2450, L503.6005 ####[facility] [address] [place], [address] CO2 [Moles/Vol] 22.2 mmol/L Normal 21.0-32.0 [facility] Comment on above: Performed By: #### L 500.2500, L500.3400, L100.0100, L501.2450, L503.6005 ####[facility] [address] [place], [address] Creatinine [Mass/Vol] 0.88 mg/dL Normal 0.70-1.20 [facility] Comment on above: Performed By: #### L 500.2500, L500.3400, L100.0100, L501.2450, L503.6005 ####[facility] [address] [place], [address] ECRCL 165.23 ml/min Normal 50-250 [facility] Comment on above: Performed By: #### L 500.2500, L500.3400, L100.0100, L501.2450, L503.6005 ####[facility] [address] [place], [address] GAP 12 Normal 5-15 [facility] Comment on above: Performed By: #### L 500.2500, L500.3400, L100.0100, L501.2450, L503.6005 ####[facility] [address] [place], [address] GFR/1.73 sq M.predicted among non-blacks MDRD (S/P/Bld) [Vol rate/Area] 107 mL/min/{1.73_m2} Normal >60 [facility] Comment on above: Result Comment: mL/m in/1.73m2 CKD-EPI Creatinine Equation (2020) Performed By: #### L 500.2500, L500.3400, L100.0100, L501.2450, L503.6005 ####[facility] [address] [place], [address] Glucose [Mass/Vol] 90 mg/dL Normal 70-99 [facility] Comment on above: Performed By: #### L 500.2500, L500.3400, L100.0100, L501.2450, L503.6005 ####[facility] [address] [place], [address] Potassium [Moles/Vol] 4.2 mmol/L Normal 3.3-5.1 [facility] Comment on above: Performed By: #### L 500.2500, L500.3400, L100.0100, L501.2450, L503.6005 ####[facility] [address] [place], [address] Sodium [Moles/Vol] 139 mmol/L Normal 133-145 [facility] Comment on above: Performed By: #### L 500.2500, L500.3400, L100.0100, L501.2450, L503.6005 ####[facility] [address] [place], [address] Urea nitrogen [Mass/Vol] 10 mg/dL Normal 4-19 [facility] Comment on above: Performed By: #### L 500.2500, L500.3400, L100.0100, L501.2450, L503.6005 ####[facility] [address] [place], [address] Basophil percentageOrdered B y: Guero Baker on 01-25-2025 Basophils/100 WBC (Bld) 0.9 % 0-1 [facility] Bilirubin directOrdered By: Guero Baker on 01-25-2025 Bilirubin.direct [Mass/Vol] mg/dL 0.00-0.30 [facility] Bilirubin, totalOrdered By: Guero Baker on 01-25-2025 Bilirubin [Mass/Vol] 0.17 mg/dL 0.00-1.30 [facility] Blood manual differential co mment interpretation (narrative result)Ordered By: Guero Baker on 01-25-2025 Manual differential comment Alonso (Bld) [Interp] SCANNED [facility] Carbon dioxide, total [Moles /volume] in Central venous bloodOrdered By: Guero Baker on 01-25-2025 CO2 [Moles/Vol] 22.2 mmol/L 21.0-32.0 [facility] Chloride assayOrdered By: Maru Baker on 01-25-2025 Chloride [Moles/Vol] 104 mmol/L 98-108 [facility] Eosinophil percentageOrdered By: Guero Baker on 01-25-2025 Eosinophils/100 WBC (Bld) 2.8 % 0-5 [facility] Erythrocyte distribution wid th ratioOrdered By: Guero Baker on 01-25-2025 Erythrocyte distribution width (RBC) [Ratio] 13.2 % 11.6-14.6 [facility] Erythrocyte distribution wid th standard deviationOrdered By: Guero Baker on 01-25-2025 Erythrocyte distribution width (RBC) [Ratio] 43.5 fl 35.1-43.9 [facility] Erythrocyte morphology asses smentOrdered By: Guero Baker on 01-25-2025 RBC morphology finding Nom (Bld) NORM C+C NORMAL NORM C&C [facility] Glomerular filtration rate ( GFR) estimation/1.73 sq m using serum, plasma, or whole bOrdered By: Guero Baker on 01-25-2025 GFR/1.73 sq M.predicted among non-blacks MDRD (S/P/Bld) [Vol rate/Area] 107 mL/min/{1.73_m2} >60 [facility] Comment on above: mL/min/1.73m2 CKD-EP I Creatinine Equation (2020) Hematocrit Auto (Bld) [Volum e fraction]Ordered By: Guero Baker on 01-25-2025 Hematocrit (Bld) [Volume fraction] 44.9 % 40-54 [facility] Hemoglobin measurementOrdere d By: Guero Baker on 01-25-2025 Hemoglobin (Bld) [Mass/Vol] 15.4 g/dL 13.0-16.5 [facility] Immature granulocytes/100 WB C Auto (Bld)Ordered By: Guero Baker on 01-25-2025 Immature granulocytes/100 WBC (Bld) 0.300 % 0.0-0.9 [facility] Comment on above: IG% - Immature Granu locytes (promyelocytes, myelocytes and metamyelocytes) > 1% indicates that a LEFT SHIFT is Present. Laboratory - Chemistry and C hemistry - challengeOrdered By: Guero Baker on 01-25-2025 AST [Catalytic activity/Vol] 18 U/L <38 [facility] Lactic Acidon 01-25-2025 Lactate [Moles/Vol] 1.1 mmol/L Normal 0.0-2.0 [facility] Comment on above: Order Comment: Y Performed By: #### L 500.2500, L500.3400, L100.0100, L501.2450, L503.6005 ####[facility] [address] [place], [address] Lactic acid measurementOrder ed By: Guero Baker on 01-25-2025 Lactate [Moles/Vol] 1.1 mmol/L 0.0-2.0 [facility] Lipaseon 01-25-2025 Lipase [Catalytic activity/Vol] 31 U/L Normal 13-75 [facility] Comment on above: Result Comment: Plecesar kline note: LIPASE revised reference range effective 22. New Lipase methodology. Expected to produce lower values than the previous assay method. NEW Reference Range: 13 - 75 U/L Performed By: #### L 500.2500, L500.3400, L100.0100, L501.2450, L503.6005 ####[facility] [address] [place], [address] Lipase measurementOrdered By : Guero Baker on 01-25-2025 Lipase [Catalytic activity/Vol] 31 U/L 13-75 [facility] Comment on above: Please note:LIPASE r evised reference range effective 22. New Lipase methodology. Expected to produce lower values than the previous assay method. NEW Reference Range: 13 - 75 U/L Liver Profileon 01-25-2025 Albumin [Mass/Vol] 4.3 g/dL Normal 3.5-5.0 [facility] Comment on above: Performed By: #### L 500.2500, L500.3400, L100.0100, L501.2450, L503.6005 ####[facility] [address] [place], [address] ALK PHOS 40 U/L Normal 40-129 [facility] Comment on above: Performed By: #### L 500.2500, L500.3400, L100.0100, L501.2450, L503.6005 ####[facility] [address] [place], [address] ALT [Catalytic activity/Vol] 14 U/L Normal <=46 [facility] Comment on above: Performed By: #### L 500.2500, L500.3400, L100.0100, L501.2450, L503.6005 ####[facility] [address] [place], [address] AST [Catalytic activity/Vol] 18 U/L Normal <=37 [facility] Comment on above: Performed By: #### L 500.2500, L500.3400, L100.0100, L501.2450, L503.6005 ####[facility] [address] [place], [address] Bilirubin [Mass/Vol] 0.17 mg/dL Normal 0.00-1.30 [facility] Comment on above: Performed By: #### L 500.2500, L500.3400, L100.0100, L501.2450, L503.6005 ####[facility] [address] [place], [address] D BILI < 0.08 Normal 0.00-0.30 [facility] Comment on above: Performed By: #### L 500.2500, L500.3400, L100.0100, L501.2450, L503.6005 ####[facility] [address] [place], [address] Globulin (S) [Mass/Vol] 3.1 g/dL Normal 2.2-4.2 [facility] Comment on above: Performed By: #### L 500.2500, L500.3400, L100.0100, L501.2450, L503.6005 ####[facility] [address] [place], [address] T PROT 7.3 g/dL Normal 5.9-8.4 [facility] Comment on above: Performed By: #### L 500.2500, L500.3400, L100.0100, L501.2450, L503.6005 ####[facility] [address] [place], [address] MCV (mean corpuscular volume ) determinationOrdered By: Guero Baker on 01-25-2025 MCV (RBC) [Entitic vol] 91.1 fL 80-94 [facility] Mean corpuscular hemoglobin (MCH) determinationOrdered By: Guero Baker on 01-25-2025 MCH (RBC) [Entitic mass] 31.2 pg 27.0-32.0 [facility] Mean corpuscular hemoglobin concentration (MCHC) determinationOrdered By: Guero Baker on 01-25-2025 MCHC (RBC) [Mass/Vol] 34.3 g/dL 32-36 [facility] Mean platelet volume determi nationOrdered By: Guero Baker on 01-25-2025 Platelet mean volume (Bld) [Entitic vol] 9.8 fL 6.2-12.0 [facility] Monocyte percentageOrdered B y: Guero Baker on 01-25-2025 Monocytes/100 WBC (Bld) 5.1 % 0-10 [facility] Neutrophil percentageOrdered By: Guero Baker on 01-25-2025 Neutrophils/100 WBC (Bld) 54.3 % 47-70 [facility] Nucleated red blood cell per centageOrdered By: Guero Baker on 01-25-2025 Nucleated RBC/100 WBC (Bld) [Ratio] 0 % 0-5 [facility] Platelet countOrdered By: Maru Baker on 01-25-2025 Platelets (Bld) [#/Vol] 333 10*3/uL 150-450 [facility] Platelet estimateOrdered By: Guero Baker on 01-25-2025 Platelets LM Ql (Bld) ADEQUATE ADEQ [facility] Potassium measurement (mass/ volume)Ordered By: Guero Baker on 01-25-2025 Potassium (Unsp spec) [Mass/Vol] 4.2 mmol/L 3.3-5.1 [facility] RBC Auto (Bld) [#/Vol]Ordere d By: Guero Baker on 01-25-2025 RBC (Bld) [#/Vol] 4.93 10*6/uL 4.6-6.2 [facility] Serum creatinine measurement (mass/volume)Ordered By: Guero Baker on 01-25-2025 Creatinine [Mass/Vol] 0.88 mg/dL 0.70-1.20 [facility] Serum globulin measurementOr dered By: Guero Baker on 01-25-2025 Globulin (S) [Mass/Vol] 3.1 g/dL 2.2-4.2 [facility] Serum glucose measurement (m ass/volume)Ordered By: Guero Baker on 01-25-2025 Glucose [Mass/Vol] 90 mg/dL 70-99 [facility] Serum or plasma alanine carrera otransferase (ALT) measurementOrdered By: Guero Baker on 01-25-2025 ALT [Catalytic activity/Vol] 14 U/L <47 [facility] Serum or plasma albumin za urement (mass/volume)Ordered By: Guero Baker on 01-25-2025 Albumin [Mass/Vol] 4.3 g/dL 3.5-5.0 [facility] Serum or plasma alkaline carmen sphatase measurementOrdered By: Guero Baker on 01-25-2025 ALP [Catalytic activity/Vol] 40 U/L 40-129 [facility] Serum or plasma calcium za urement (mass/volume)Ordered By: Guero Baker on 01-25-2025 Calcium [Mass/Vol] 9.6 mg/dL 7.6-11.0 [facility] Serum or plasma urea nitroge n measurement (mass/volume)Ordered By: Guero Baker on 01-25-2025 Urea nitrogen [Mass/Vol] 10 mg/dL 4-19 [facility] Sodium levelOrdered By: Scott Baker on 01-25-2025 Sodium [Moles/Vol] 139 mmol/L 133-145 [facility] Total proteinOrdered By: Yovani Baker on 01-25-2025 Protein [Mass/Vol] 7.3 g/dL 5.9-8.4 [facility] White blood cell (WBC) count Ordered By: Guero Baker on 01-25-2025 WBC (Bld) [#/Vol] 11.7 10*3/uL High 4.4-11.0 [facility] Abdomen/Pelvis W IV Cont ONL Yon 12-29-2024 Abdomen/Pelvis W IV Cont ONLY [facility] Services [address] [place] [address] Abdomen/Pelvis W IV Cont ONLY MR#: [id number] Acct: [id number] Name: PATRICK KOROMA Rep #: [id number] : 1980 M 44 From: Colt Cruz MD PCP: Viola Starkey NP-C Status: REG ER Study: Abdomen/Pelvis W IV Cont ONLY Date of Exam: Exam# [id number] Ordering Dr: Justin Cordero MD PROCEDURE: ABDOMEN/PELVIS [...] containing omental fat, without bowel. Reading Location: [place] [address] CC: OXYGEN THERAPY TEACHER-C Viola Starkey; Dr. Justin Cordero MD Sales And Service Engineer: Signed Normal [facility] Absolute lymphocyte countOrd ered By: Justin Cordero on 12-29-2024 Lymphocytes Auto (Unsp spec) [#/Vol] 3.55 10*3/uL 0.83-4.51 [facility] Absolute neutrophil countOrd ered By: Justin Cordero on 12-29-2024 Neutrophils (Bld) [#/Vol] 7.2 10*3/uL 2.0-7.7 [facility] Anion gap in Serum or Plasma Ordered By: Justin Cordero on 12-29-2024 Anion gap [Moles/Vol] 12 mmol/L 5- [facility] Automated lymphocyte count a s percentage of total leukocytesOrdered By: Justin Cordero on 12-29-2024 Lymphocytes/100 WBC Auto (Unsp spec) 30.4 % - [facility] BUN/creatinine ratioOrdered By: Justin Cordero on 12-29-2024 Urea nitrogen/Creatinine [Mass ratio] 7.7 mg/mg Low 10- [facility] Basophil percentageOrdered B y: Justin Cordero on 12-29-2024 Basophils/100 WBC (Bld) 0.6 % 0-1 [facility] Bilirubin, totalOrdered By: Justin Cordero on 12-29-2024 Bilirubin [Mass/Vol] 0.19 mg/dL 0.00-1.30 [facility] CBC W/Diff, Automatedon 12-14 Absolute Lymph 3.55 X10 3/uL Normal 0.83-4.51 [facility] Comment on above: Performed By: #### L 100.0100, L501.2450, L500.4050 ####[facility] [address] [place], [address] Absolute Neut 7.2 X10 3/uL Normal 2.0-7.7 [facility] Comment on above: Performed By: #### L 100.0100, L501.2450, L500.4050 ####[facility] [address] [place], [address] Basophils/100 WBC (Bld) 0.6 % Normal 0-1 [facility] Comment on above: Performed By: #### L 100.0100, L501.2450, L500.4050 ####[facility] [address] [place], [address] Eosinophils/100 WBC (Bld) 1.7 % Normal 0-5 [facility] Comment on above: Performed By: #### L 100.0100, L501.2450, L500.4050 ####[facility] [address] [place], [address] Erythrocyte distribution width (RBC) [Ratio] 12.4 % Normal 11.6-14.6 [facility] Comment on above: Performed By: #### L 100.0100, L501.2450, L500.4050 ####[facility] [address] [place], [address] Hematocrit (Bld) [Volume fraction] 43.2 % Normal 40-54 [facility] Comment on above: Performed By: #### L 100.0100, L501.2450, L500.4050 ####[facility] [address] [place], [address] Hemoglobin (Bld) [Mass/Vol] 15.0 g/dL Normal 13.0-16.5 [facility] Comment on above: Performed By: #### L 100.0100, L501.2450, L500.4050 ####[facility] [address] [place], [address] IG% 0.300 Normal 0.0-0.9 [facility] Comment on above: Result Comment: IG% - Immature Granulocytes (promyelocytes, myelocytes and metamyelocytes) > 1% indicates that a LEFT SHIFT is Present. Performed By: #### L 100.0100, L501.2450, L500.4050 ####[facility] [address] [place], [address] Lymphocytes/100 WBC (Bld) 30.4 % Normal 19-41 [facility] Comment on above: Performed By: #### L 100.0100, L501.2450, L500.4050 ####[facility] [address] [place], [address] MCH (RBC) [Entitic mass] 30.7 pg Normal 27.0-32.0 [facility] Comment on above: Performed By: #### L 100.0100, L501.2450, L500.4050 ####[facility] [address] [place], [address] MCHC (RBC) [Mass/Vol] 34.7 g/dL Normal 32-36 [facility] Comment on above: Performed By: #### L 100.0100, L501.2450, L500.4050 ####[facility] [address] [place], [address] MCV (RBC) [Entitic vol] 88.5 fL Normal 80-94 [facility] Comment on above: Performed By: #### L 100.0100, L501.2450, L500.4050 ####[facility] [address] [place], [address] Monocytes/100 WBC (Bld) 5.1 % Normal 0-10 [facility] Comment on above: Performed By: #### L 100.0100, L501.2450, L500.4050 ####[facility] [address] [place], [address] Neutrophils/100 WBC (Bld) 61.9 % Normal 47-70 [facility] Comment on above: Performed By: #### L 100.0100, L501.2450, L500.4050 ####[facility] [address] [place], [address] Nucleated RBC (Bld) [#/Vol] 0 10*3/uL Normal 0-5 [facility] Comment on above: Performed By: #### L 100.0100, L501.2450, L500.4050 ####[facility] [address] [place], [address] Platelet mean volume (Bld) [Entitic vol] 9.5 fL Normal 6.2-12.0 [facility] Comment on above: Performed By: #### L 100.0100, L501.2450, L500.4050 ####[facility] [address] [place], [address] Platelets (Bld) [#/Vol] 295 10*3/uL Normal 150-450 [facility] Comment on above: Performed By: #### L 100.0100, L501.2450, L500.4050 ####[facility] [address] [place], [address] RBC (Bld) [#/Vol] 4.88 10*6/uL Normal 4.6-6.2 [facility] Comment on above: Performed By: #### L 100.0100, L501.2450, L500.4050 ####[facility] [address] [place], [address] RDW SD 40.5 fl Normal 35.1-43.9 [facility] Comment on above: Performed By: #### L 100.0100, L501.2450, L500.4050 ####[facility] [address] [place], [address] WBC (Bld) [#/Vol] 11.7 10*3/uL High 4.4-11.0 [facility] Comment on above: Performed By: #### L 100.0100, L501.2450, L500.4050 ####[facility] [address] [place], [address] Carbon dioxide, total [Moles /volume] in Central venous bloodOrdered By: Justin Cordero on 12-29-2024 CO2 [Moles/Vol] 21.1 mmol/L 21.0-32.0 [facility] Chloride assayOrdered By: Germán Cordero on 12-29-2024 Chloride [Moles/Vol] 103 mmol/L 98-108 [facility] Comprehensive Metabolic Prof ilon 12-29-2024 Albumin [Mass/Vol] 3.8 g/dL Normal 3.5-5.0 [facility] Comment on above: Performed By: #### L 100.0100, L501.2450, L500.4050 ####[facility] [address] [place], [address] ALK PHOS 39 U/L Low 40-129 [facility] Comment on above: Performed By: #### L 100.0100, L501.2450, L500.4050 ####[facility] [address] [place], [address] ALT [Catalytic activity/Vol] 10 U/L Normal <=46 [facility] Comment on above: Performed By: #### L 100.0100, L501.2450, L500.4050 ####[facility] [address] [place], [address] AST [Catalytic activity/Vol] 21 U/L Normal <=37 [facility] Comment on above: Result Comment: Hemo lysis present, Results??could be affected. ?? Performed By: #### L 100.0100, L501.2450, L500.4050 ####[facility] [address] [place], [address] Bilirubin [Mass/Vol] 0.19 mg/dL Normal 0.00-1.30 [facility] Comment on above: Performed By: #### L 100.0100, L501.2450, L500.4050 ####[facility] [address] [place], [address] BUN/CRE 7.7 RATIO Low 10-20 [facility] Comment on above: Performed By: #### L 100.0100, L501.2450, L500.4050 ####[facility] [address] [place], [address] Calcium [Mass/Vol] 9.1 mg/dL Normal 7.6-11.0 [facility] Comment on above: Performed By: #### L 100.0100, L501.2450, L500.4050 ####[facility] [address] [place], [address] Chloride [Moles/Vol] 103 mmol/L Normal 98-108 [facility] Comment on above: Performed By: #### L 100.0100, L501.2450, L500.4050 ####[facility] [address] [place], [address] CO2 [Moles/Vol] 21.1 mmol/L Normal 21.0-32.0 [facility] Comment on above: Performed By: #### L 100.0100, L501.2450, L500.4050 ####[facility] [address] [place], [address] Creatinine [Mass/Vol] 0.79 mg/dL Normal 0.70-1.20 [facility] Comment on above: Performed By: #### L 100.0100, L501.2450, L500.4050 ####[facility] [address] [place], [address] GAP 12 Normal 5-15 [facility] Comment on above: Performed By: #### L 100.0100, L501.2450, L500.4050 ####[facility] [address] [place], [address] GFR/1.73 sq M.predicted among non-blacks MDRD (S/P/Bld) [Vol rate/Area] 112 mL/min/{1.73_m2} Normal >60 [facility] Comment on above: Result Comment: mL/m in/1.73m2 CKD-EPI Creatinine Equation (2020) Performed By: #### L 100.0100, L501.2450, L500.4050 ####[facility] [address] [place], [address] Glucose [Mass/Vol] 100 mg/dL High 70-99 [facility] Comment on above: Performed By: #### L 100.0100, L501.2450, L500.4050 ####[facility] [address] [place], [address] Potassium [Moles/Vol] 4.3 mmol/L Normal 3.3-5.1 [facility] Comment on above: Result Comment: Hemo lysis present, Results??could be affected. ?? Performed By: #### L 100.0100, L501.2450, L500.4050 ####[facility] [address] [place], [address] Sodium [Moles/Vol] 136 mmol/L Normal 133-145 [facility] Comment on above: Performed By: #### L 100.0100, L501.2450, L500.4050 ####[facility] [address] [place], [address] T PROT 6.8 g/dL Normal 5.9-8.4 [facility] Comment on above: Performed By: #### L 100.0100, L501.2450, L500.4050 ####[facility] [address] [place], [address] Urea nitrogen [Mass/Vol] 6 mg/dL Normal 4-19 [facility] Comment on above: Performed By: #### L 100.0100, L501.2450, L500.4050 ####[facility] [address] [place], [address] Emergency Department Summary on 12-29-2024 Emergency Department Summary [facility] Medical Records Department [address] [place] [address] Emergency Department Summary 12/29/24 MR#: [id number] Acct: [id number] Name: PATRICK KOROMA Rep #: [id number] : 1980 44 From: Justin Cordero MD PCP: Viola Starkey NP-C Status:REG ER Location: ED HPI HPI - [...] did his other hernia repair surgeries in [place] he was told by him he could do it. He referred him to a surgeon in [place] at and they also told him they were not able to help him. Patient denies any fever. No dysuria. Denies any nausea, vomiting or diarrhea. No back pain. Prior similar symptoms: Yes Recent Illness/Hospitalizati on: No PFSH [facility] Medical History Seroma after procedure Influenza due [...] 86 R (more content not included)... Normal [facility] Eosinophil percentageOrdered By: Justin Cordero on 12-29-2024 Eosinophils/100 WBC (Bld) 1.7 % 0-5 [facility] Erythrocyte distribution wid th ratioOrdered By: Justin Cordero on 12-29-2024 Erythrocyte distribution width (RBC) [Ratio] 12.4 % 11.6-14.6 [facility] Erythrocyte distribution wid th standard deviationOrdered By: Justin Cordero on 12-29-2024 Erythrocyte distribution width (RBC) [Ratio] 40.5 fl 35.1-43.9 [facility] Glomerular filtration rate ( GFR) estimation/1.73 sq m using serum, plasma, or whole bOrdered By: Justin Cordero on 12-29-2024 GFR/1.73 sq M.predicted among non-blacks MDRD (S/P/Bld) [Vol rate/Area] 112 mL/min/{1.73_m2} >60 [facility] Comment on above: mL/min/1.73m2 CKD-EP I Creatinine Equation (2020) Hematocrit Auto (Bld) [Volum e fraction]Ordered By: Justin Cordero on 12-29-2024 Hematocrit (Bld) [Volume fraction] 43.2 % 40-54 [facility] Hemoglobin measurementOrdere d By: Justin Cordero on 12-29-2024 Hemoglobin (Bld) [Mass/Vol] 15.0 g/dL 13.0-16.5 [facility] Immature granulocytes/100 WB C Auto (Bld)Ordered By: Justin Cordero on 12-29-2024 Immature granulocytes/100 WBC (Bld) 0.300 % 0.0-0.9 [facility] Comment on above: IG% - Immature Granu locytes (promyelocytes, myelocytes and metamyelocytes) > 1% indicates that a LEFT SHIFT is Present. Laboratory - Chemistry and C hemistry - challengeOrdered By: Justin Cordero on 12-29-2024 AST [Catalytic activity/Vol] 21 U/L <38 [facility] Comment on above: Hemolysis present, R esults could be affected. Lipaseon 12-29-2024 Lipase [Catalytic activity/Vol] 28 U/L Normal 13-75 [facility] Comment on above: Result Comment: Scout kline note: LIPASE revised reference range effective 22. New Lipase methodology. Expected to produce lower values than the previous assay method. NEW Reference Range: 13 - 75 U/L Performed By: #### L 100.0100, L501.2450, L500.4050 ####[facility] [address] [place], [address] Lipase measurementOrdered By : Justin Cordero on 12-29-2024 Lipase [Catalytic activity/Vol] 28 U/L 13-75 [facility] Comment on above: Please note:LIPASE r evised reference range effective 22. New Lipase methodology. Expected to produce lower values than the previous assay method. NEW Reference Range: 13 - 75 U/L MCV (mean corpuscular volume ) determinationOrdered By: Justin Cordero on 12-29-2024 MCV (RBC) [Entitic vol] 88.5 fL 80-94 [facility] Mean corpuscular hemoglobin (MCH) determinationOrdered By: Justin Cordero on 12-29-2024 MCH (RBC) [Entitic mass] 30.7 pg 27.0-32.0 [facility] Mean corpuscular hemoglobin concentration (MCHC) determinationOrdered By: Justin Cordero on 12-29-2024 MCHC (RBC) [Mass/Vol] 34.7 g/dL 32-36 [facility] Mean platelet volume determi nationOrdered By: Justin Cordero on 12-29-2024 Platelet mean volume (Bld) [Entitic vol] 9.5 fL 6.2-12.0 [facility] Monocyte percentageOrdered B y: Justin Cordero on 12-29-2024 Monocytes/100 WBC (Bld) 5.1 % 0-10 [facility] Neutrophil percentageOrdered By: Justin Cordero on 12-29-2024 Neutrophils/100 WBC (Bld) 61.9 % 47-70 [facility] Nucleated red blood cell per centageOrdered By: Justin Cordero on 12-29-2024 Nucleated RBC/100 WBC (Bld) [Ratio] 0 % 0-5 [facility] Platelet countOrdered By: Germán Cordero on 12-29-2024 Platelets (Bld) [#/Vol] 295 10*3/uL 150-450 [facility] Potassium measurement (mass/ volume)Ordered By: Justin Cordero on 12-29-2024 Potassium (Unsp spec) [Mass/Vol] 4.3 mmol/L 3.3-5.1 [facility] Comment on above: Hemolysis present, R esults could be affected. RBC Auto (Bld) [#/Vol]Ordere d By: Justin Cordero on 12-29-2024 RBC (Bld) [#/Vol] 4.88 10*6/uL 4.6-6.2 [facility] Serum creatinine measurement (mass/volume)Ordered By: Justin Cordero on 12-29-2024 Creatinine [Mass/Vol] 0.79 mg/dL 0.70-1.20 [facility] Serum globulin measurementOr dered By: Justin Cordero on 12-29-2024 Globulin (S) [Mass/Vol] 3.0 g/dL 2.2-4.2 [facility] Serum glucose measurement (m ass/volume)Ordered By: Justin Cordero on 12-29-2024 Glucose [Mass/Vol] 100 mg/dL High 70-99 [facility] Serum or plasma alanine carrera otransferase (ALT) measurementOrdered By: Justin Cordero on 12-29-2024 ALT [Catalytic activity/Vol] 10 U/L <47 [facility] Serum or plasma albumin za urement (mass/volume)Ordered By: Justin Cordero on 12-29-2024 Albumin [Mass/Vol] 3.8 g/dL 3.5-5.0 [facility] Serum or plasma albumin/glob ulin mass ratioOrdered By: Justin Cordero on 12-29-2024 Albumin/Globulin [Mass ratio] 1.3 {ratio} 0.9-2.4 [facility] Serum or plasma alkaline carmen sphatase measurementOrdered By: Justin Cordero on 12-29-2024 ALP [Catalytic activity/Vol] 39 U/L Low 40-129 [facility] Serum or plasma calcium za urement (mass/volume)Ordered By: Justin Cordero on 12-29-2024 Calcium [Mass/Vol] 9.1 mg/dL 7.6-11.0 [facility] Serum or plasma urea nitroge n measurement (mass/volume)Ordered By: Justin Cordero on 12-29-2024 Urea nitrogen [Mass/Vol] 6 mg/dL 4-19 [facility] Sodium levelOrdered By: Justin Cordero on 12-29-2024 Sodium [Moles/Vol] 136 mmol/L 133-145 [facility] Total proteinOrdered By: Van Cordero on 12-29-2024 Protein [Mass/Vol] 6.8 g/dL 5.9-8.4 [facility] White blood cell (WBC) count Ordered By: Justin Cordero on 12-29-2024 WBC (Bld) [#/Vol] 11.7 10*3/uL High 4.4-11.0 [facility] Abdomen/Pelvis W IV Cont ONL Yon 12-09-2024 Abdomen/Pelvis W IV Cont ONLY [facility] Imaging Services [address] [place], [place] [id number] Abdomen/Pelvis W IV Cont ONLY MR#: [id number] Acct: [id number] Name: PATRICK KOROMA Rep #: [id number] : 1980 M 44 From: Davis mayfield MD PCP: ERIC Anaya Status: [facility] ER Study: Abdomen/Pelvis W IV Cont ONLY Date of Exam: Exam# [id number] Ordering Dr: Guero Baker DO PROCEDURE: ABDOMEN/PELVIS [...] of the stomach, probably gastritis. Reading Location: [place] [address] CC: ERIC Starkey; Guero Baker DO Sales And Service Engineer: Signed Normal [facility] Absolute lymphocyte countOrd ered By: Guero Baker on 12-09-2024 Lymphocytes Auto (Unsp spec) [#/Vol] 3.41 10*3/uL 0.83-4.51 [facility] Absolute neutrophil countOrd ered By: Guero Baker on 12-09-2024 Neutrophils (Bld) [#/Vol] 6.8 10*3/uL 2.0-7.7 [facility] Anion gap in Serum or Plasma Ordered By: Guero Baker on 12-09-2024 Anion gap [Moles/Vol] 11 mmol/L 5-15 [facility] Automated lymphocyte count a s percentage of total leukocytesOrdered By: Guero Baker on 12-09-2024 Lymphocytes/100 WBC Auto (Unsp spec) 30.2 % - [facility] BUN/creatinine ratioOrdered By: Guero Baker on 12-09-2024 Urea nitrogen/Creatinine [Mass ratio] 12.9 mg/mg 10- [facility] Basic Metabolic Profile (BMP )on 12-09-2024 GFR/1.73 sq M.predicted among non-blacks MDRD (S/P/Bld) [Vol rate/Area] 108 mL/min/{1.73_m2} Normal >60 [facility] Comment on above: Performed By: #### L 500.3400, L501.2450, L500.2500 ####[facility] [address] [place], [address] Basophil percentageOrdered B y: Guero Baker on 12-09-2024 Basophils/100 WBC (Bld) 0.8 % 0-1 [facility] Bilirubin directOrdered By: Guero Baker on 12-09-2024 Bilirubin.direct [Mass/Vol] mg/dL 0.00-0.30 [facility] Comment on above: Hemolysis present, R esults could be affected. Bilirubin, totalOrdered By: Guero Baker on 12-09-2024 Bilirubin [Mass/Vol] mg/dL 0.00-1.30 [facility] CBC W/Diff, Automatedon 11-15 Absolute Lymph 3.41 X10 3/uL Normal 0.83-4.51 [facility] Comment on above: Performed By: #### L 503.6005, L100.0100 #### [facility] [address] [place], [address] Absolute Neut 6.8 X10 3/uL Normal 2.0-7.7 [facility] Comment on above: Performed By: #### L 503.6005, L100.0100 #### [facility] [address] [place], [address] Basophils/100 WBC (Bld) 0.8 % Normal 0-1 [facility] Comment on above: Performed By: #### L 503.6005, L100.0100 #### [facility] [address] [place], [address] Eosinophils/100 WBC (Bld) 2.0 % Normal 0-5 [facility] Comment on above: Performed By: #### L 503.6005, L100.0100 #### [facility] [address] [place], [address] Erythrocyte distribution width (RBC) [Ratio] 12.4 % Normal 11.6-14.6 [facility] Comment on above: Performed By: #### L 503.6005, L100.0100 #### [facility] [address] [place], [address] Hematocrit (Bld) [Volume fraction] 44.7 % Normal 40-54 [facility] Comment on above: Performed By: #### L 503.6005, L100.0100 #### [facility] [address] [place], [address] Hemoglobin (Bld) [Mass/Vol] 15.2 g/dL Normal 13.0-16.5 [facility] Comment on above: Performed By: #### L 503.6005, L100.0100 #### [facility] [address] [place], [address] IG% 0.400 Normal 0.0-0.9 [facility] Comment on above: Result Comment: IG% - Immature Granulocytes (promyelocytes, myelocytes and metamyelocytes) > 1% indicates that a LEFT SHIFT is Present. Performed By: #### L 503.6005, L100.0100 #### [facility] [address] [place], [address] Lymphocytes/100 WBC (Bld) 30.2 % Normal 19-41 [facility] Comment on above: Performed By: #### L 503.6005, L100.0100 #### [facility] [address] [place], [address] MCH (RBC) [Entitic mass] 31.1 pg Normal 27.0-32.0 [facility] Comment on above: Performed By: #### L 503.6005, L100.0100 #### [facility] [address] [place], [address] MCHC (RBC) [Mass/Vol] 34.0 g/dL Normal 32-36 [facility] Comment on above: Performed By: #### L 503.6005, L100.0100 #### [facility] [address] [place], [address] MCV (RBC) [Entitic vol] 91.4 fL Normal 80-94 [facility] Comment on above: Performed By: #### L 503.6005, L100.0100 #### [facility] [address] [place], [address] Monocytes/100 WBC (Bld) 6.0 % Normal 0-10 [facility] Comment on above: Performed By: #### L 503.6005, L100.0100 #### [facility] [address] [place], [address] Neutrophils/100 WBC (Bld) 60.6 % Normal 47-70 [facility] Comment on above: Performed By: #### L 503.6005, L100.0100 #### [facility] [address] [place], [address] Nucleated RBC (Bld) [#/Vol] 0 10*3/uL Normal 0-5 [facility] Comment on above: Performed By: #### L 503.6005, L100.0100 #### [facility] [address] [place], [address] Platelet mean volume (Bld) [Entitic vol] 9.4 fL Normal 6.2-12.0 [facility] Comment on above: Performed By: #### L 503.6005, L100.0100 #### [facility] [address] [place], [address] Platelets (Bld) [#/Vol] 295 10*3/uL Normal 150-450 [facility] Comment on above: Performed By: #### L 503.6005, L100.0100 #### [facility] [address] [place], [address] RBC (Bld) [#/Vol] 4.89 10*6/uL Normal 4.6-6.2 [facility] Comment on above: Performed By: #### L 503.6005, L100.0100 #### [facility] [address] [place], [address] RDW SD 41.4 fl Normal 35.1-43.9 [facility] Comment on above: Performed By: #### L 503.6005, L100.0100 #### [facility] [address] [place], [address] WBC (Bld) [#/Vol] 11.3 10*3/uL High 4.4-11.0 [facility] Comment on above: Performed By: #### L 503.6005, L100.0100 #### [facility] [address] [place], [address] Carbon dioxide, total [Moles /volume] in Central venous bloodOrdered By: Guero Baker on 12-09-2024 CO2 [Moles/Vol] 23.5 mmol/L 21.0-32.0 [facility] Chloride assayOrdered By: Maru Baker on 12-09-2024 Chloride [Moles/Vol] 106 mmol/L 98-108 [facility] Emergency Department Summary on 12-09-2024 Emergency Department Summary [facility] Medical Records Department [address] [place] [address] Emergency Department Summary 12/09/24 MR#: [id number] Acct: [id number] Name: PATRICK KOROMA Rep #: [id number] : 1980 44 From: Guero Baker DO [...] able to repaired by a specialist at [facility]. He denies any recent trauma but states that he has been having increasing pain in the mid abdomen which feels similar nature to his previous bouts of hernia complication and therefore comes in for evaluation [facility] Medical History Seroma after procedure Influenza [...] ER hyper (more content not included)... Normal [facility] Eosinophil percentageOrdered By: Guero Baker on 12-09-2024 Eosinophils/100 WBC (Bld) 2.0 % 0-5 [facility] Erythrocyte distribution wid th ratioOrdered By: Guero Baker on 12-09-2024 Erythrocyte distribution width (RBC) [Ratio] 12.4 % 11.6-14.6 [facility] Erythrocyte distribution wid th standard deviationOrdered By: Guero Baker on 12-09-2024 Erythrocyte distribution width (RBC) [Ratio] 41.4 fl 35.1-43.9 [facility] Glomerular filtration rate ( GFR) estimation/1.73 sq m using serum, plasma, or whole bOrdered By: Guero Baker on 12-09-2024 GFR/1.73 sq M.predicted among non-blacks MDRD (S/P/Bld) [Vol rate/Area] 108 mL/min/{1.73_m2} >60 [facility] Hematocrit Auto (Bld) [Volum e fraction]Ordered By: Guero Baker on 12-09-2024 Hematocrit (Bld) [Volume fraction] 44.7 % 40-54 [facility] Hemoglobin measurementOrdere d By: Guero Baker on 12-09-2024 Hemoglobin (Bld) [Mass/Vol] 15.2 g/dL 13.0-16.5 [facility] Immature granulocytes/100 WB C Auto (Bld)Ordered By: Guero Baker on 12-09-2024 Immature granulocytes/100 WBC (Bld) 0.400 % 0.0-0.9 [facility] Comment on above: IG% - Immature Granu locytes (promyelocytes, myelocytes and metamyelocytes) > 1% indicates that a LEFT SHIFT is Present. Laboratory - Chemistry and C hemistry - challengeOrdered By: Guero Baker on 12-09-2024 AST [Catalytic activity/Vol] 17 U/L <38 [facility] Comment on above: Hemolysis present, R esults could be affected. Lactic Acidon 12-09-2024 Lactate [Moles/Vol] 1.1 mmol/L Normal 0.0-2.0 [facility] Comment on above: Order Comment: Y Performed By: #### L 241.6447, L100.0100 #### [facility] [address] [place], [address] Lactic acid measurementOrder ed By: Guero Baker on 12-09-2024 Lactate [Moles/Vol] 1.1 mmol/L 0.0-2.0 [facility] Lipaseon 12-09-2024 Lipase [Catalytic activity/Vol] 36 U/L Normal 13-75 [facility] Comment on above: Result Comment: Scout kline note: LIPASE revised reference range effective 22. New Lipase methodology. Expected to produce lower values than the previous assay method. NEW Reference Range: 13 - 75 U/L Performed By: #### L 500.3400, L501.2450, L500.2500 ####[facility] [address] [place], [address] Lipase measurementOrdered By : Guero Baker on 12-09-2024 Lipase [Catalytic activity/Vol] 36 U/L 13-75 [facility] Comment on above: Please note:LIPASE r evised reference range effective 22. New Lipase methodology. Expected to produce lower values than the previous assay method. NEW Reference Range: 13 - 75 U/L Liver Profileon 12-09-2024 Albumin [Mass/Vol] 3.7 g/dL Normal 3.5-5.0 [facility] Comment on above: Performed By: #### L 500.3400, L501.2450, L500.2500 ####[facility] [address] [place], [address] ALK PHOS 42 U/L Normal 40-129 [facility] Comment on above: Performed By: #### L 500.3400, L501.2450, L500.2500 ####[facility] [address] [place], [address] ALT [Catalytic activity/Vol] 15 U/L Normal <=46 [facility] Comment on above: Performed By: #### L 500.3400, L501.2450, L500.2500 ####[facility] [address] [place], [address] AST [Catalytic activity/Vol] 17 U/L Normal <=37 [facility] Comment on above: Result Comment: Hemo lysis present, Results??could be affected. ?? Performed By: #### L 500.3400, L501.2450, L500.2500 ####[facility] [address] [place], [address] D BILI < 0.08 Normal 0.00-0.30 [facility] Comment on above: Result Comment: Hemo lysis present, Results??could be affected. ?? Performed By: #### L 500.3400, L501.2450, L500.2500 ####[facility] [address] [place], [address] Globulin (S) [Mass/Vol] 2.8 g/dL Normal 2.2-4.2 [facility] Comment on above: Performed By: #### L 500.3400, L501.2450, L500.2500 ####[facility] [address] [place], [address] T BILI < 0.15 Normal 0.00-1.30 [facility] Comment on above: Performed By: #### L 500.3400, L501.2450, L500.2500 ####[facility] [address] [place], [address] T PROT 6.5 g/dL Normal 5.9-8.4 [facility] Comment on above: Performed By: #### L 500.3400, L501.2450, L500.2500 ####[facility] [address] [place], [address] MCV (mean corpuscular volume ) determinationOrdered By: Guero Baker on 12-09-2024 MCV (RBC) [Entitic vol] 91.4 fL 80-94 [facility] Mean corpuscular hemoglobin (MCH) determinationOrdered By: Guero Baker on 12-09-2024 MCH (RBC) [Entitic mass] 31.1 pg 27.0-32.0 [facility] Mean corpuscular hemoglobin concentration (MCHC) determinationOrdered By: Guero Baker on 12-09-2024 MCHC (RBC) [Mass/Vol] 34.0 g/dL 32-36 [facility] Mean platelet volume determi nationOrdered By: Guero Baker on 12-09-2024 Platelet mean volume (Bld) [Entitic vol] 9.4 fL 6.2-12.0 [facility] Monocyte percentageOrdered B y: Guero Baker on 12-09-2024 Monocytes/100 WBC (Bld) 6.0 % 0-10 [facility] Neutrophil percentageOrdered By: Guero Baker on 12-09-2024 Neutrophils/100 WBC (Bld) 60.6 % 47-70 [facility] Nucleated red blood cell per centageOrdered By: Guero Baker on 12-09-2024 Nucleated RBC/100 WBC (Bld) [Ratio] 0 % 0-5 [facility] Platelet countOrdered By: Maru Baker on 12-09-2024 Platelets (Bld) [#/Vol] 295 10*3/uL 150-450 [facility] Potassium measurement (mass/ volume)Ordered By: Guero Baker on 12-09-2024 Potassium (Unsp spec) [Mass/Vol] 4.0 mmol/L 3.3-5.1 [facility] Comment on above: Hemolysis present, R esults could be affected. RBC Auto (Bld) [#/Vol]Ordere d By: Guero Baker on 12-09-2024 RBC (Bld) [#/Vol] 4.89 10*6/uL 4.6-6.2 [facility] Serum creatinine measurement (mass/volume)Ordered By: Guero Baker on 12-09-2024 Creatinine [Mass/Vol] 0.87 mg/dL 0.70-1.20 [facility] Serum globulin measurementOr dered By: Guero Baker on 12-09-2024 Globulin (S) [Mass/Vol] 2.8 g/dL 2.2-4.2 [facility] Serum glucose measurement (m ass/volume)Ordered By: Guero Baker on 12-09-2024 Glucose [Mass/Vol] 105 mg/dL High 70-99 [facility] Serum or plasma alanine carrera otransferase (ALT) measurementOrdered By: Guero Baker on 12-09-2024 ALT [Catalytic activity/Vol] 15 U/L <47 [facility] Serum or plasma albumin za urement (mass/volume)Ordered By: Guero Baker on 12-09-2024 Albumin [Mass/Vol] 3.7 g/dL 3.5-5.0 [facility] Serum or plasma alkaline carmen sphatase measurementOrdered By: Guero Baker on 12-09-2024 ALP [Catalytic activity/Vol] 42 U/L 40-129 [facility] Serum or plasma calcium za urement (mass/volume)Ordered By: Guero Baker on 12-09-2024 Calcium [Mass/Vol] 8.7 mg/dL 7.6-11.0 [facility] Serum or plasma urea nitroge n measurement (mass/volume)Ordered By: Guero Baker on 12-09-2024 Urea nitrogen [Mass/Vol] 11 mg/dL 4-19 [facility] Sodium levelOrdered By: Scott Baker on 12-09-2024 Sodium [Moles/Vol] 140 mmol/L 133-145 [facility] Total proteinOrdered By: Yovani Baker on 12-09-2024 Protein [Mass/Vol] 6.5 g/dL 5.9-8.4 [facility] White blood cell (WBC) count Ordered By: Guero Baker on 12-09-2024 WBC (Bld) [#/Vol] 11.3 10*3/uL High 4.4-11.0 [facility] Emergency Department Summary on 12-07-2024 Emergency Department Summary [facility] Medical Records Department [address] [place] [address] Emergency Department Summary 12/07/24 MR#: [id number] Acct: [id number] Name: GAPATRICKLENORA KOVACS Rep #: [id number] : 1980 44 From: Guevara Choi MD PCP: Viola Starkey, YULI-C Status:REG ER Location: ED HPI History of Present Illness Chief Complaint: Upper Extremity Injury Informant: patient Narrative Narrative: During tear down of a car level traction at the [facility], patient states he smashed his right thumb between 2 metal poles on accident. Utkti-tltx-hovisesp. PFSH PFS Medical History Seroma after procedure [...] right hand. Reading Location: [facility] Discharge Plan Triage Chief Complaint: Upper Extremity Injury ED Provider: Guevara Choi Dx/Rx/DC Orders Clinical Impression: Contusion of right thumb with damage to nail, initial encounter Instructions: ED Finger or Toe Contusion Prescriptions: No Action NK Primary Care Provider: Viola Starkey NP Referrals: Viola Starkey OXYGEN THERAPY TEACHER, OXYGEN THERAPY TEACHER-C [Primary Care Provider] - 10-14 Days if not better Print La (more content not included)... Normal [facility] Hand Min 3 Viewson Hand Min 3 Views [facility] Imaging Services [address] [place], [place] [address] Hand Min 3 Views MR#: [id number] Acct: [id number] Name: PATRICK KOROMA Rep #: [id number] : 1980 M 44 From: Stephan Ba MD PCP: ERIC Anaya Status: PRE ER Study: Hand Min 3 Views Date of Exam: 12/06/24 Exam# [id number] Ordering Dr: Guevara Choi MD PROCEDURE: HAND MIN 3 VIEWS 12/06/2024 REASON FOR EXAM: INJURY TECHNIQUE: HAND MIN 3 VIEWS COMPARISON: None FINDINGS: No fracture or traumatic malalignment. Joint spaces are predominantly maintained. Bone mineral density is subjectively normal. The soft tissues are unremarkable. RAD/Hand Min 3 Views IMPRESSION: No acute osseous abnormality of the right hand. Reading Location: [id number] CC: OXYGEN THERAPY TEACHER-Marielos Starkey; Dr. Guevara Choi MD Sales And Service Engineer: Signed Normal [facility] Clavicleon 09-19-2024 Clavicle [facility] Imaging Services [address] [place], [place] [address] Clavicle MR#: [id number] Acct: [id number] Name: PATRICK KOROMA Rep #: [id number] : 1980 M 44 From: Kalli Tena DO PCP: ERIC Anaya Status: REG ER Study: Clavicle Date of Exam: 09/19/24 Exam# [id number] Ordering Dr: Brian Maldonado MD PROCEDURE: CLAVICLE 09/19/2024 REASON FOR EXAM: TRAUMA TECHNIQUE: Two views of the right clavicle were obtained COMPARISON: None FINDINGS: Bones: No acute fracture. Joints: Joint spaces are preserved. Soft tissues: No soft tissue abnormality. RAD/Clavicle IMPRESSION: NO EVIDENCE OF CLAVICLE FRACTURE Reading Location: [facility] CC: OXYGEN THERAPY TEACHERLucasC Viola Starkey; Dr. Brian Maldonado MD Sales And Service Engineer: Signed Normal [facility] Emergency Department Summary on 09-19-2024 Emergency Department Summary [facility] Medical Records Department [address] [place] [address] Emergency Department Summary 09/19/24 MR#: [id number] Acct: [id number] Name: PATRICK KOROMA Rep #: [id number] : 1980 44 From: Brian Maldonado MD PCP: ERIC Anaya Status:REG ER Location: ED HPI History of Present Illness Chief Complaint: Upper Extremity Injury Narrative Narrative: 44-year-old male, gmjkf-cfii-ggiybran, presents with injury to his right shoulder [...] raise his right arm. Denies other injuries. [facility] Medical History Seroma after procedure Influenza [...] clavicle and shoulder pain worse with movement. Fstar-fnki-vaxmchtu. Denies hitting of his head or loss [...] AC joint separation. Patient was given 1 [place] tablet here for analgesia and x-rays obtained [...] not improving. I feel he can take fqyj-ujp-pjbqqes medications for analgesia. Return instructions to the emergency department were reviewed. Disposition is discharged home in stable condition. History Recor (more content not included)... Normal [facility] Shoulder min 2 Viewson 09-19 Shoulder min 2 Views [facility] Imaging Services [address] [place], [place] [address] Shoulder min 2 Views MR#: [id number] Acct: [id number] Name: PATRICK KOROMA Rep #: [id number] : 1980 M 44 From: Kalli Tena DO PCP: ERIC Anaya Status: REG ER Study: Shoulder min 2 Views Date of Exam: 09/19/24 Exam# [id number] Ordering Dr: Brian Maldonado MD PROCEDURE: SHOULDER MIN 2 VIEWS 09/19/2024 REASON FOR EXAM: TRAUMA TECHNIQUE: 4 view(s) of the right shoulder COMPARISON: None FINDINGS: Bones: No acute fracture. Joints: Normal alignment of the acromioclavicular and glenohumeral joints. Soft tissues: Soft tissues are unremarkable. Other: RAD/Shoulder min 2 Views IMPRESSION: NO ACUTE FRACTURE OR DISLOCATION. Reading Location: [facility] CC: OXYGEN THERAPY TEACHER-C Viola Starkey; Dr. Brian Maldonado MD Sales And Service Engineer: Signed Normal [facility] .Auto Diffon 09-08-2024 Basophil, Absolute 0.1 10 3/mcL Normal 0.0-0.2 [facility] Comment on above: Performed By: #### A DIFF, CMP, CBC, LIPID, GFR, ANEU #### [facility] [address] [place], [place] [address] Basophils/100 WBC (Bld) 1.0 % Normal 0.0-2.5 A [facility] Comment on above: Performed By: #### A DIFF, CMP, CBC, LIPID, GFR, ANEU #### [address] [address] Eosinophil, Absolute 0.1 10 3/mcL Normal 0.0-0.7 [facility] Comment on above: Performed By: #### A DIFF, CMP, CBC, LIPID, GFR, ANEU #### [address] [address] Eosinophils/100 WBC (Bld) 0.8 % Normal 0.0-7.0 [facility] Comment on above: Performed By: #### A DIFF, CMP, CBC, LIPID, GFR, ANEU #### [address] [address] Lymphocyte, Absolute 2.2 10 3/mcL Normal 0.9-4.3 [facility] Comment on above: Performed By: #### A DIFF, CMP, CBC, LIPID, GFR, ANEU #### [address] [address] Lymphocytes/100 WBC (Bld) 17.9 % Low 20.0-40.0 [facility] Comment on above: Performed By: #### A DIFF, CMP, CBC, LIPID, GFR, ANEU #### [address] [address] Monocyte, Absolute 0.8 10 3/mcL Normal 0.1-1.4 [facility] Comment on above: Performed By: #### A DIFF, CMP, CBC, LIPID, GFR, ANEU #### [address] [address] Monocytes/100 WBC (Bld) 6.5 % Normal 2.0-13.0 [facility] Comment on above: Performed By: #### A DIFF, CMP, CBC, LIPID, GFR, ANEU #### [address] [address] Neutrophils/100 WBC (Bld) 73.8 % Normal 50.0-75.0 [facility] Comment on above: Performed By: #### A DIFF, CMP, CBC, LIPID, GFR, ANEU #### [address] [address] .GFRon 09-08-2024 Estimated Glomerular Filtration Rate 99 ml/min/1.73sqm Normal [facility] Comment on above: Result Comment: Stages of [...] DIFF, CMP, CBC, LIPID, GFR, ANEU #### [address] [address] .NEUABSon 09-08-2024 Neutrophil, Absolute 9.2 10 3/mcL High 2.3-8.1 [facility] Comment on above: Performed By: #### A DIFF, CMP, CBC, LIPID, GFR, ANEU #### [address] [address] CBCon 09-08-2024 Erythrocyte distribution width (RBC) [Ratio] 13.3 % Normal 11.5-15.5 [facility] Comment on above: Performed By: #### A DIFF, CMP, CBC, LIPID, GFR, ANEU #### [address] [address] Hematocrit (Bld) [Volume fraction] 45.6 % Normal 40.0-52.0 [facility] Comment on above: Performed By: #### A DIFF, CMP, CBC, LIPID, GFR, ANEU #### [address] [address] Hgb 15.3 G/dL Normal 13.0-17.5 [facility] Comment on above: Performed By: #### A DIFF, CMP, CBC, LIPID, GFR, ANEU #### [address] [address] MCH (RBC) [Entitic mass] 31.0 pg Normal 27.0-33.0 [facility] Comment on above: Performed By: #### A DIFF, CMP, CBC, LIPID, GFR, ANEU #### [place] [address] MCHC 33.5 G/dL Normal 32.0-36.0 [facility] Comment on above: Performed By: #### A DIFF, CMP, CBC, LIPID, GFR, ANEU #### [place] [address] MCV (RBC) [Entitic vol] 92.3 fL Normal 81.0-100.0 [facility] Comment on above: Performed By: #### A DIFF, CMP, CBC, LIPID, GFR, ANEU #### [place] [address] Platelet 297 10 3/mcL Normal 150-450 [facility] Comment on above: Performed By: #### A DIFF, CMP, CBC, LIPID, GFR, ANEU #### [place] [address] Platelet mean volume (Bld) [Entitic vol] 8.0 fL Normal 6.4-10.5 [facility] Comment on above: Performed By: #### A DIFF, CMP, CBC, LIPID, GFR, ANEU #### [place] [address] RBC 4.94 10 6/mcL Normal 4.50-6.00 [facility] Comment on above: Performed By: #### A DIFF, CMP, CBC, LIPID, GFR, ANEU #### [place] [address] WBC 12.5 10 3/mcL High 4.5-10.8 [facility] Comment on above: Performed By: #### A DIFF, CMP, CBC, LIPID, GFR, ANEU #### [place] [address] CMPon 09-08-2024 Albumin Level 3.7 G/dL Normal 3.5-5.0 [facility] Comment on above: Performed By: #### A DIFF, CMP, CBC, LIPID, GFR, ANEU #### [place] [id number] Albumin/Globulin [Mass ratio] 0.9 {ratio} Low 1.1-2.5 [facility] Comment on above: Performed By: #### A DIFF, CMP, CBC, LIPID, GFR, ANEU #### [place] [address] ALP [Catalytic activity/Vol] 51 U/L Normal 40-135 [facility] Comment on above: Performed By: #### A DIFF, CMP, CBC, LIPID, GFR, ANEU #### [place] [address] ALT [Catalytic activity/Vol] 17 U/L Normal 16-63 [facility] Comment on above: Performed By: #### A DIFF, CMP, CBC, LIPID, GFR, ANEU #### [place] [id number] AST [Catalytic activity/Vol] 15 U/L Normal 10-40 [facility] Comment on above: Performed By: #### A DIFF, CMP, CBC, LIPID, GFR, ANEU #### [place] [id number] Bili Total 0.2 mg/dL Normal 0.2-1.0 [facility] Comment on above: Result Comment: Use of this assay is not recommended for patients undergoing treatment with eltrombopag due to the potential for falsely elevated results. Performed By: #### A DIFF, CMP, CBC, LIPID, GFR, ANEU #### [place] [id number] BUN/Creatinine Ratio 11 ratio Normal 7-27 [facility] Comment on above: Performed By: #### A DIFF, CMP, CBC, LIPID, GFR, ANEU #### [place] [id number] Calcium [Mass/Vol] 9.7 mg/dL Normal 8.4-10.2 [facility] Comment on above: Performed By: #### A DIFF, CMP, CBC, LIPID, GFR, ANEU #### [address] [address] Chloride [Moles/Vol] 99 mmol/L Normal 98-107 [facility] Comment on above: Performed By: #### A DIFF, CMP, CBC, LIPID, GFR, ANEU #### [address] [address] CO2 [Moles/Vol] 27 mmol/L Normal 22-29 [facility] Comment on above: Performed By: #### A DIFF, CMP, CBC, LIPID, GFR, ANEU #### [address] [address] Creatinine [Mass/Vol] 0.96 mg/dL Normal 0.70-1.30 [facility] Comment on above: Result Comment: Test ing performed on Bullhorn Dimension EXL analyzer using a modified kinetic Elyse technique. Performed By: #### A DIFF, CMP, CBC, LIPID, GFR, ANEU #### [address] [address] Electrolyte Balance 8.0 mEq/L Normal 4.0-15.0 [facility] Comment on above: Performed By: #### A DIFF, CMP, CBC, LIPID, GFR, ANEU #### [address] [address] Globulin 4.0 G/dL High 1.5-3.8 [facility] Comment on above: Performed By: #### A DIFF, CMP, CBC, LIPID, GFR, ANEU #### [address] [address] Glucose [Mass/Vol] 91 mg/dL Normal 70-105 [facility] Comment on above: Performed By: #### A DIFF, CMP, CBC, LIPID, GFR, ANEU #### [place] [address] Potassium [Moles/Vol] 4.4 mmol/L Normal 3.5-5.1 [facility] Comment on above: Performed By: #### A DIFF, CMP, CBC, LIPID, GFR, ANEU #### [address] [address] Sodium [Moles/Vol] 134 mmol/L Low 136-145 [facility] Comment on above: Performed By: #### A DIFF, CMP, CBC, LIPID, GFR, ANEU #### [address] [address] Total Protein 7.7 G/dL Normal 6.4-8.2 [facility] Comment on above: Performed By: #### A DIFF, CMP, CBC, LIPID, GFR, ANEU #### [address] [address] Urea nitrogen [Mass/Vol] 11 mg/dL Normal 7-18 [facility] Comment on above: Performed By: #### A DIFF, CMP, CBC, LIPID, GFR, ANEU #### [address] [address] LIPIDon 09-08-2024 Cholesterol [Mass/Vol] 177 mg/dL Normal 0-200 [facility] Comment on above: Result Comment: Chol esterol Reference Interval: Less than 200 Desirable 200-239 Borderline high risk 240 and above High risk Performed By: #### A DIFF, CMP, CBC, LIPID, GFR, ANEU #### [address] [address] Cholesterol in HDL [Mass/Vol] 44 mg/dL Normal 40-60 [facility] Comment on above: Performed By: #### A DIFF, CMP, CBC, LIPID, GFR, ANEU #### [address] [address] Cholesterol in LDL [Mass/Vol] 108 mg/dL Normal 0-130 [facility] Comment on above: Performed By: #### A DIFF, CMP, CBC, LIPID, GFR, ANEU #### [address] [address] Triglyceride [Mass/Vol] 125 mg/dL Normal 0-150 A [facility] Comment on above: Result Comment: Trig lyceride Reference Interval: Less than 150 Normal 150-199 Borderline high risk 200-499 High risk 500 or higher Very high risk Performed By: #### A DIFF, CMP, CBC, LIPID, GFR, ANEU #### [facility] [address] [place], [place] [address] XR FOOT MINIMUM 3 VIEWS LEFT on [...] 09/08/2024 12:53:40 AM Ordering Provider: SHANIKA Nelson [facility] Emergency Department Summary on 08-24-2024 Emergency Department Summary [facility] Medical Records Department [address] [place] [address] Emergency Department Summary 08/24/24 MR#: [id number] Acct: [id number] Name: PATRICK KOROMA Rep #: [id number] : 1980 44 From: Cristian Tate PCP: Care Physician,No Primary Status:DEP ER Location: ED HPI History of Present Illness Chief Complaint: Upper Extremity Injury Informant: patient Narrative Narrative: Kemvu-axbn-ksrnxqlc male presents right shoulder injury 2 hours [...] No surgical intervention. Prior similar symptoms: Yes [facility] Medical History Seroma after procedure Influenza [...] Medical decision (more content not included)... Normal [facility] Shoulder min 2 Viewson 08-24 Shoulder min 2 Views [facility] Imaging Services [address] [place], [place] [address] Shoulder min 2 Views MR#: [id number] Acct: [id number] Name: PATRICK KOROMA Rep #: [id number] : 1980 M 44 From: Ke Mario PCP: Care Physician,No Primary Status: PRE ER Study: Shoulder min 2 Views Date of Exam: 08/24/24 Exam# [id number] Ordering Dr: Provider,Ed P. PROCEDURE: Right shoulder radiographs REASON FOR EXAM: PAIN, LOSS OF MOBILITY TECHNIQUE: Four views of the right shoulder COMPARISON: None. FINDINGS: See impression RAD/Shoulder min 2 Views IMPRESSION: Negative for acute fracture or malalignment. 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 Mild acromioclavicular joint osteoarthritis. Reading Location: [facility] CC: ED PHYSICIAN PROVIDER; No Primary Care Physician Sales And Service Engineer: Signed Omar [facility] Study Interpretation of outs augusta studyon [...] Date: 05/16/2024 10:27:09 PM Ordering Provider: RADHA YI Normal [facility] CNCOon 10-21-2023 CNCO Letter Text Normal [facility] CNPVesna 10-10-2023 [facility] PATRICK KOROMA ([id number]) 1980 M Date Time Provider Department 10/10/23 JULIOCESAR BORRERO [facility] During your visit today, we recorded the [...] message sent. Christy Rodrigez RN BSN Nurse Erp Implementation Consultant Christy Rodrigez RN 10/21/2023 10:47 AM Signed [...] Dr. Hannah. Christy Rodrigez RN BSN Nurse Erp Implementation Consultant Allergies As of Date: 10/10/2023 Noted Allergy [...] Status:Closed by CHRISTY RODRIGEZ on 11/04/23 Normal [facility] CONFIRM BLOOD TYPEon 024 ABO B Normal [facility] Comment on above: Order Comment: Speci men Type: BLOOD SPECIMEN Ordering Facility: [facility] Address: [address] [place] [address] Performed By: #### C ONABO #### [facility] CLIA [id number] [address] [place] [address] [place] Rh Nom (Bld) Positive Normal [facility] Comment on above: Order Comment: Speci men Type: BLOOD SPECIMEN Ordering Facility: [facility] Address: [address] [place] [address] Performed By: #### C ONABO #### [facility] CLIA [id number] [address] [place] [address] [place] NURSING PROGon 10-07-2023 NURSING PROG HNO ID: [id number] Author: AISLINN, LESLIE, RN Service: ? Author Type: Registered Nurse Type: Nursing Progress Note Filed: 10/07/2023 13:02 Note Text: Nursing Progress Note Topic of Note: Incidental PATIENT NAME: Patrick Koroma Patient Location: Main - Periop OR/Main - Periop OR Room: [facility] Periop OR (31[facility]) Dr. Richardson came to see patient at bedside and discussed surgical procedure and risks/benefits. Patient and surgeon agreed to cancel surgery and proceed a different route. This note was completed by: Leslie Jarrett RN Normal [facility] CBC W Auto Differential pane l (Bld)on 09-16-2023 Basophils (Bld) [#/Vol] 0.06 10*3/uL Normal <0.11 [facility] Comment on above: Order Comment: Speci men Type: BLOOD SPECIMEN Ordering Facility: [facility] Address: [address] [place] [address] Performed By: #### C ONABO #### [facility] CLIA [id number] [address] [place] [address] [place] Basophils/100 WBC (Bld) 0.6 % Normal [facility] Comment on above: Order Comment: Speci men Type: BLOOD SPECIMEN Ordering Facility: [facility] Address: [address] [place] [address] Performed By: #### C ONABO #### [facility]LO[facility] CLIA [id number] [address] [place] [address] [place] Differential cell count method Nom (Bld) Auto Normal [facility] Comment on above: Order Comment: Speci men Type: BLOOD SPECIMEN Ordering Facility: [facility] Address: [address] [place] [address] Performed By: #### C ONABO #### [facility] CLIA [id number] [address] [place] [address] [place] Eosinophils (Bld) [#/Vol] 0.09 10*3/uL Normal <0.46 [facility] Comment on above: Order Comment: Speci men Type: BLOOD SPECIMEN Ordering Facility: [facility] Address: [address] [place] [address] Performed By: #### C ONABO #### [facility]LO[facility] CLIA [id number] [address] [place] [address] [place] Eosinophils/100 WBC (Bld) 1.0 % Normal [facility] Comment on above: Order Comment: Speci men Type: BLOOD SPECIMEN Ordering Facility: [facility] Address: [address] [place] [address] Performed By: #### C ONABO #### [facility] CLIA [id number] [address] [place] [address] [place] Erythrocyte distribution width (RBC) [Ratio] 12.5 % Normal 11.5-15.0 [facility] Comment on above: Order Comment: Speci men Type: BLOOD SPECIMEN Ordering Facility: [facility] Address: [address] [place] [address] Performed By: #### C ONABO #### [facility]LO[facility] CLIA [id number] [address] [place] [address] [place] Hematocrit (Bld) [Volume fraction] 47.3 % Normal 39.0-51.0 [facility] Comment on above: Order Comment: Speci men Type: BLOOD SPECIMEN Ordering Facility: [facility] Address: [address] [place] [address] Performed By: #### C ONABO #### [facility]LO[facility] CLIA [id number] [address] [place] [address] [place] Hemoglobin (Bld) [Mass/Vol] 16.1 g/dL Normal 13.0-17.0 [facility] Comment on above: Order Comment: Speci men Type: BLOOD SPECIMEN Ordering Facility: [facility] Address: [address] [place] [address] Performed By: #### C ONABO #### [facility] CLIA [id number] [address] [place] [address] [place] Immature granulocytes (Bld) [#/Vol] 0.03 10*3/uL Normal <0.10 [facility] Comment on above: Order Comment: Speci men Type: BLOOD SPECIMEN Ordering Facility: [facility] Address: [address] [place] [address] Performed By: #### C ONABO #### [facility] CLIA [id number] [address] [place] [address] [place] Immature granulocytes/100 WBC (Bld) 0.3 % Normal [facility] Comment on above: Order Comment: Speci men Type: BLOOD SPECIMEN Ordering Facility: [facility] Address: [address] [place] [address] Performed By: #### C ONABO #### [facility] CLIA [id number] [address] [place] [address] [place] Lymphocytes (Bld) [#/Vol] 2.61 10*3/uL Normal 1.00-4.00 [facility] Comment on above: Order Comment: Speci men Type: BLOOD SPECIMEN Ordering Facility: [facility] Address: [address] [place] [address] Performed By: #### C ONABO #### [facility] CLIA [id number] [address] [place] [address] [place] Lymphocytes/100 WBC (Bld) 28.2 % Normal [facility] Comment on above: Order Comment: Speci men Type: BLOOD SPECIMEN Ordering Facility: [facility] Address: [address] [place] [address] Performed By: #### C ONABO #### [facility] CLIA [id number] [address] [place] [address] [place] MCH (RBC) [Entitic mass] 31.0 pg Normal 26.0-34.0 [facility] Comment on above: Order Comment: Speci men Type: BLOOD SPECIMEN Ordering Facility: [facility] Address: [address] [place] [address] Performed By: #### C ONABO #### [facility] CLIA [id number] [address] [place] [address] [place] MCHC (RBC) [Mass/Vol] 34.0 g/dL Normal 30.5-36.0 [facility] Comment on above: Order Comment: Speci men Type: BLOOD SPECIMEN Ordering Facility: [facility] Address: [address] [place] [address] Performed By: #### C ONABO #### [facility] CLIA [id number] [address] [place] [address] [place] MCV (RBC) [Entitic vol] 91.1 fL Normal 80.0-100.0 [facility] Comment on above: Order Comment: Speci men Type: BLOOD SPECIMEN Ordering Facility: [facility] Address: [address] [place] [address] Performed By: #### C ONABO #### [facility] CLIA [id number] [address] [place] [address] [place] Monocytes (Bld) [#/Vol] 0.51 10*3/uL Normal <0.87 [facility] Comment on above: Order Comment: Speci men Type: BLOOD SPECIMEN Ordering Facility: [facility] Address: [address] [place] [address] Performed By: #### C ONABO #### [facility] CLIA [id number] [address] [place] [address] [place] Monocytes/100 WBC (Bld) 5.5 % Normal [facility] Comment on above: Order Comment: Speci men Type: BLOOD SPECIMEN Ordering Facility: [facility] Address: [address] [place] [address] Performed By: #### C ONABO #### [facility] CLIA [id number] [address] [id number] [place] Neutrophils (Bld) [#/Vol] 5.94 10*3/uL Normal 1.45-7.50 [facility] Comment on above: Order Comment: Speci men Type: BLOOD SPECIMEN Ordering Facility: [facility] Address: [address] [place] [address] Performed By: #### C ONABO #### [facility] CLIA [id number] [address] [place] [address] [place] Neutrophils/100 WBC (Bld) 64.4 % Normal [facility] Comment on above: Order Comment: Speci men Type: BLOOD SPECIMEN Ordering Facility: [facility] Address: [address] [place] [address] Performed By: #### C ONABO #### [facility] CLIA [id number] [address] [place] [address] [place] Nucleated RBC (Bld) [#/Vol] 10*3/uL Normal <0.01 [facility] Comment on above: Order Comment: Speci men Type: BLOOD SPECIMEN Ordering Facility: [facility] Address: [address] [place] [address] Performed By: #### C ONABO #### [facility] CLIA [id number] [address] [place] [address] [place] Nucleated RBC/100 WBC (Bld) [Ratio] 0.0 /100 WBC Normal [facility] Comment on above: Order Comment: Speci men Type: BLOOD SPECIMEN Ordering Facility: [facility] Address: [address] [place] [address] Performed By: #### C ONABO #### [facility] CLIA [id number] [address] [place] [address] [place] Platelet mean volume (Bld) [Entitic vol] 9.6 fL Normal 9.0-12.7 [facility] Comment on above: Order Comment: Speci men Type: BLOOD SPECIMEN Ordering Facility: [facility] Address: [address] [place] [address] Performed By: #### C ONABO #### [facility] CLIA [id number] [address] [place] [address] [place] [facility] Platelets (Bld) [#/Vol] 307 10*3/uL Normal 150-400 [facility] Comment on above: Order Comment: Speci men Type: BLOOD SPECIMEN Ordering Facility: [facility] Address: [address] [place] [address] Performed By: #### C ONABO #### [facility] CLIA [id number] [address] [place] [address] [place] RBC (Bld) [#/Vol] 5.19 10*6/uL Normal 4.20-6.00 [facility] Comment on above: Order Comment: Speci men Type: BLOOD SPECIMEN Ordering Facility: [facility] Address: [address] [place] [address] Performed By: #### C ONABO #### [facility] CLIA [id number] [address] [place] [address] [place] WBC (Bld) [#/Vol] 9.24 10*3/uL Normal 3.70-11.00 [facility] Comment on above: Order Comment: Speci men Type: BLOOD SPECIMEN Ordering Facility: [facility] Address: [address] [place] [address] Performed By: #### C ONABO #### [facility] CLIA [id number] [address] [place] [address] [place] [facility] Comprehensive metabolic 2000 panelon 09-16-2023 Albumin [Mass/Vol] 4.1 g/dL Normal 3.9-4.9 [facility] Comment on above: Order Comment: Speci men Type: BLOOD SPECIMEN Ordering Facility: [facility] Address: [address] [place] [address] Performed By: #### C ONABO #### [facility] CLIA [id number] [address] [id number] [place] ALP [Catalytic activity/Vol] 46 U/L Normal 38-113 [facility] Comment on above: Order Comment: Speci men Type: BLOOD SPECIMEN Ordering Facility: [facility] Address: [address] [place] [address] Performed By: #### C ONABO #### [facility] CLIA [id number] [address] [place] [address] [place] ALT [Catalytic activity/Vol] 21 U/L Normal 10-54 [facility] Comment on above: Order Comment: Speci men Type: BLOOD SPECIMEN Ordering Facility: [facility] Address: [address] [place] [address] Performed By: #### C ONABO #### [facility] CLIA [id number] [address] [place] [address] [place] Anion gap [Moles/Vol] 12 mmol/L Normal 9-18 [facility] Comment on above: Order Comment: Speci men Type: BLOOD SPECIMEN Ordering Facility: [facility] Address: [address] [place] [address] Performed By: #### C ONABO #### [facility] CLIA [id number] [address] [place] [address] [place] AST [Catalytic activity/Vol] 19 U/L Normal 14-40 [facility] Comment on above: Order Comment: Speci men Type: BLOOD SPECIMEN Ordering Facility: [facility] Address: [address] [place], [place] [id number] Performed By: #### C ONABO #### [facility] CLIA [id number] [address] [place] [address] [place] Bilirubin [Mass/Vol] 0.2 mg/dL Normal 0.2-1.3 [facility] Comment on above: Order Comment: Speci men Type: BLOOD SPECIMEN Ordering Facility: [facility] Address: [address] [id number] Performed By: #### C ONABO #### [facility] CLIA [id number] [address] [place] [address] [place] Calcium [Mass/Vol] 9.1 mg/dL Normal 8.5-10.2 [facility] Comment on above: Order Comment: Speci men Type: BLOOD SPECIMEN Ordering Facility: [facility] Address: [address] [place] [address] Performed By: #### C ONABO #### [facility] CLIA [id number] [address] [place] [address] [place] Chloride [Moles/Vol] 104 mmol/L Normal 97-105 [facility] Comment on above: Order Comment: Speci men Type: BLOOD SPECIMEN Ordering Facility: [facility] Address: [address] [place] [address] Performed By: #### C ONABO #### [facility] CLIA [id number] [address] [place] [address] [place] CO2 [Moles/Vol] 20 mmol/L Low 22-30 [facility] Comment on above: Order Comment: Speci men Type: BLOOD SPECIMEN Ordering Facility: [facility] Address: [address] [place] [address] Performed By: #### C ONABO #### [facility] CLIA [id number] [address] [place], [place] [id number] [place] Creatinine [Mass/Vol] 0.73 mg/dL Normal 0.73-1.22 [facility] Comment on above: Order Comment: Speci men Type: BLOOD SPECIMEN Ordering Facility: [facility] Address: [address] [place] [address] Performed By: #### C ONABO #### [facility] CLIA [id number] [address] [place] [address] [place] Creatinine and Glomerular filtration rate.predicted panel (S/P/Bld) 115 mL/min/1.73m??? Normal >=60 [facility] Comment on above: Order Comment: Vikash vasquez Type: BLOOD SPECIMEN Ordering Facility: [facility] Address: [address] [place] [address] Result Comment: Katie mated Glomerular Filtration Rate [...] ONABO #### [facility] IA [id number] [address] [place] [address] [place] Glucose [Mass/Vol] 124 mg/dL High 74-99 [facility] Comment on above: Order Comment: Vikash vasquez Type: BLOOD SPECIMEN Ordering Facility: [facility] Address: [address] [place] [address] Result Comment: The [place] [employer] (ADA) provides guidance for cutoff [...] Standards of Medical Care in Diabetes 2016, [place] [employer]. Diabetes Care. 2016.39(Suppl 1). Performed By: #### C ONABO #### [facility] CLIA [id number] [address] [place] [address] [place] Potassium [Moles/Vol] 4.2 mmol/L Normal 3.7-5.1 [facility] Comment on above: Order Comment: Speci men Type: BLOOD SPECIMEN Ordering Facility: [facility] Address: [address] [place] [address] Performed By: #### C ONABO #### [facility] CLIA [id number] [address] [place] [address] [place] Protein [Mass/Vol] 6.8 g/dL Normal 6.3-8.0 [facility] Comment on above: Order Comment: Speci men Type: BLOOD SPECIMEN Ordering Facility: [facility] Address: [address] [place] [address] Performed By: #### C ONABO #### [facility] CLIA [id number] [address] [place] [address] [place] Sodium [Moles/Vol] 136 mmol/L Normal 136-144 [facility] Comment on above: Order Comment: Speci men Type: BLOOD SPECIMEN Ordering Facility: [facility] Address: [address] [place] [address] Performed By: #### C ONABO #### [facility] CLIA [id number] [address] [place] [address] [place] Urea nitrogen [Mass/Vol] 9 mg/dL Normal 9-24 [facility] Comment on above: Order Comment: Speci men Type: BLOOD SPECIMEN Ordering Facility: [facility] Address: [address] [place] [address] Performed By: #### C ONABO #### [facility] CLIA [id number] [address] [place] [address] [place] ECG COMPLETEon 09-16-2023 ECG COMPLETE Ventricular Rate : 9 6 BPM Atrial Rate : 96 BPM P-R Interval : 136 ms QRS Duration : 94 ms Q-T Interval : 362 ms QTC Calculation(Bazett) : 457 ms Calculated P Cherry : 30 degrees Calculated R Cherry : 19 degrees Calculated T Cherry : 18 degrees NORMAL SINUS RHYTHM NORMAL ECG Confirmed by MD SHILOH, PhD, MATTHEW ([id number]) on 09/25/2023 1:38:47 PM NAME : PATRICK KOROMA PID : [id number] : 1980 Gender : Male Race : ORD : [id number] Procedure Date : Sep 16 2023 12:20:58 Edit Date : Sep 25 2023 13:38:51 Diagnosis: NORMAL SINUS RHYTHM NORMAL ECG Confirmed by MD SHILOH, PhD, MATTHEW ([id number]) on 09/25/2023 1:38:47 PM Test Reason : Location : 119 : A17 A17 Overread By : MD SHILOH, PhD,MATTHEW Edited By : MD SHILOH, PhD,MATTHEW Referred By : JESE RICHARDSON Acquired by : ESAU MCGARRY [facility] HISTORY PHYSICALon HISTORY PHYSICAL HNO ID: [id number] Author: DIANA GRAHAM PA-C Service: ? Author Type: Physician Motor Grader Operator Type: H&P Filed: 09/16/2023 12:27 Note Text: [...] requiring medication, no history of angina, CHF, MT, cardiac surgery or stents. Denies rest pain, [...] 1.00 Year (more content not included)... Normal [facility] PT panel Coag (PPP)on 2023 INR Coag (PPP) [Relative time] 0.9 {INR} Normal 0.9-1.3 [facility] Comment on above: Order Comment: Speci men Type: BLOOD SPECIMEN Ordering Facility: [facility] Address: [address] [place], [place] [id number] Result Comment: Bisi min K Antagonist (VKA) Therapeutic Range: INR 2 to 3 (Target INR of 2.5) Note: For patients treated with VKA drugs, such as warfarin, the [place] [employer] 2012 Guideline recommends [...] 2.5 to 3.5 (target INR of 3). Guyatt GH, et al. Chest 2012, 141:7S-47S Sharla RA, et al. [facility] 2017, 70: 252-289 Performed By: #### C ONABO #### [facility] CLIA [id number] [address] [place] [address] [place] PT Coag (PPP) [Time] 10.1 s Normal 9.7-13.0 [facility] Comment on above: Order Comment: Speci men Type: BLOOD SPECIMEN Ordering Facility: [facility] Address: [address] [place] [address] Performed By: #### C ONABO #### [facility] CLIA [id number] [address] [place] [address] [facility] TYPE AND SCREEN,30 DAYon ABO B Normal [facility] Comment on above: Order Comment: Speci men Type: BLOOD SPECIMEN Ordering Facility: [facility] Address: [address] [place] [address] Performed By: #### T SCR30 #### [facility] CLIA [id number] [address] [place] [address] [place] HISTORICAL AB SCR STATUS Negative Normal [facility] Comment on above: Order Comment: Speci men Type: BLOOD SPECIMEN Ordering Facility: [facility] Address: [address] [place] [address] Performed By: #### T SCR30 #### [facility] CLIA [id number] [address] [place] [address] [place] Rh Nom (Bld) Positive Normal [facility] Comment on above: Order Comment: Speci men Type: BLOOD SPECIMEN Ordering Facility: [facility] Address: [address] [place] [address] Performed By: #### T SCR30 #### [facility] CLIA [id number] [address] [place] [address] [place] aPTT PPPon 04-02-2024 aPTT Coag (PPP) [Time] 29.1 s Normal 23.0-32.4 Cl [facility] Comment on above: Order Comment: Speci men Type: BLOOD SPECIMEN Ordering Facility: [facility] Address: [address] [place] [address] Performed By: #### C ONABO #### [facility] CLIA [id number] [address] [place] [address] [id number] CNOVon 08-06-2023 CNOV Office Visit (NPRC21 ) PARTICK KOROMA ([id number]) 1980 M Date Time Provider Department 08/06/23 9:30 AM KELLEY MERAZ [facility] During your visit today, we recorded the following information about you: Pulse Blood pressure Weight Height 107/minute 153/101 158.8 kg 1.88 m Kelley Meraz APRN.ALMA NOEL 08/06/2023 10:16 AM Signed In-Person Visit Present: patient [facility] August 06, 2023 Patrick Koroma is a 43 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 He was referred by Linda Griffiths CNP (General Surgery) [address] [id number]. This consultation was shared with the referral source via the [facility] electronic medical record. The patient understanding [...] activity was identified. 08/06/2023 by Kelley Meraz APRN.REVIEW SPECIALIST, DNP Functional Limitations: The patient has been [...] hematoma (HCC) (more content not included)... Normal [facility] CNOVon 07-07-2023 CNOV Office Visit (JUNG ) PATRICK KOROMA ([id number]) 1980 M Date Time Provider Department 07/07/23 [...] Viviana Teresa MD 07/07/2023 9:35 AM Signed [facility] - HISTORY AND PHYSICAL Chief Complaint: pain to the left of the hernia repair HPI: Patrick Koroma is a 43 year old male with PMH post traumatic seizure disorder, s/p appendectomy and multiple hernia repair who presents with pain lateral to the hernia repair site On 11/22/21 he had a robotic assisted repair of recurrent ventral hernia at [facility] with Dr Aaron Duque with removal of [...] is warm (more content not included)... Normal [facility] .Auto Diffon 06-28-2023 Basophil, Absolute 0.0 10 3/mcL Normal 0.0-0.2 [facility] ([place]) Comment on above: Performed By: #### C BC, CMP, ADJAN, MDW, LIP, ANEU, GFR #### [place] [address] [address] Basophils/100 WBC (Bld) 0.2 % Normal 0.0-2.5 A [facility] ([place]) Comment on above: Performed By: #### C BC, CMP, ADIFF, MDW, LIP, ANEU, GFR #### [address] [address] Eosinophil, Absolute 0.2 10 3/mcL Normal 0.0-0.4 [facility] ([place]) Comment on above: Performed By: #### C BC, CMP, ADIFF, MDW, LIP, ANEU, GFR #### [address] [address] Eosinophils/100 WBC (Bld) 2.4 % Normal 0.0-7.0 [facility] ([place]) Comment on above: Performed By: #### C BC, CMP, ADIFF, MDW, LIP, ANEU, GFR #### [address] [address] Lymphocyte, Absolute 2.8 10 3/mcL Normal 0.8-3.9 [facility] ([place]) Comment on above: Performed By: #### C BC, CMP, ADIFF, MDW, LIP, ANEU, GFR #### [address] [address] Lymphocytes/100 WBC (Bld) 32.1 % Normal 10.0-50.0 [facility] ([place]) Comment on above: Performed By: #### C BC, CMP, ADIFF, MDW, LIP, ANEU, GFR #### [address] [address] Monocyte, Absolute 0.6 10 3/mcL Normal 0.2-1.0 [facility] ([place]) Comment on above: Performed By: #### C BC, CMP, ADIFF, MDW, LIP, ANEU, GFR #### [address] [address] Monocytes/100 WBC (Bld) 6.7 % Normal 1.7-13.0 A [facility] ([place]) Comment on above: Performed By: #### C BC, CMP, KLARISSA, ANURAG, LIP, ANEU, GFR #### [address] [address] Neutrophils/100 WBC (Bld) 58.6 % Normal 37.0-80.0 [facility] ([place]) Comment on above: Performed By: #### C BC, CORNELIA, KLARISSA, W, LIP, ANEU, GFR #### [address] [address] .GFRon 06-28-2023 GFR 110 ml/min/1.73sqm Normal [facility] ([place]) Comment on above: Result Comment: GFR [...] CORNELIA, KLARISSA, W, LIP, ANEU, GFR #### [address] [address] GFR Non- 91 ml/min/1.73sqm Normal [facility] ([place]) Comment on above: Result Comment: GFR [...] CORNELIA, KLARISSA, W, LIP, ANEU, GFR #### [place] [address] .MDWon 06-28-2023 Monocyte Distribution Width 20.24 High 0.00-20.00 [facility] ([place]) Comment on above: Result Comment: For adults in ED, MDW>20.0 may be associated with a higher risk of sepsis during the first 12hrs of hospital admission Performed By: #### C BC, CMP, KLARISSA, MDW, LIP, ANEU, GFR #### [address] [place] [address] .NEUABSon 06-28-2023 Neutrophil, Absolute 5.2 10 3/mcL Normal 2.9-6.2 [facility] ([place]) Comment on above: Performed By: #### C BC, CMP, KLARISSA, MDW, LIP, ANEU, GFR #### [address] [place] [address] .Urinalysis Microscopic (AO) on 06-28-2023 UA Amorphus 2+ /hpf Normal [facility] ([place]) Comment on above: Performed By: #### C BC, CMP, KLARISSA, MDW, LIP, ANEU, GFR #### [address] [address] UA Mucous Trace Normal [facility] ([place]) Comment on above: Performed By: #### C BC, CMP, KLARISSA, MDW, LIP, ANEU, GFR #### [address] [address] UA RBC None Seen Normal None Seen [facility] ([place]) Comment on above: Performed By: #### C BC, CMP, KLARISSA, MDW, LIP, ANEU, GFR #### [address] [address] UA Squam Epithelial None Seen Normal None Seen [facility] ([place]) Comment on above: Performed By: #### C BC, CMP, KLARISSA, MDW, LIP, ANEU, GFR #### [address] [address] UA WBC None Seen Normal None Seen [facility] ([place]) Comment on above: Performed By: #### C BC, CMP, KLARISSA, MDW, LIP, ANEU, GFR #### [address] [address] CBCon 06-28-2023 Erythrocyte distribution width (RBC) [Ratio] 13.5 % Normal 11.5-14.5 [facility] ([place]) Comment on above: Performed By: #### C BC, CORNELIA, KLARISSA, MDW, LIP, ANEU, GFR #### [place] [address] Hematocrit (Bld) [Volume fraction] 44.3 % Normal 42.0-52.0 [facility] ([place]) Comment on above: Performed By: #### C LANI, CORNELIA, KLARISSA, W, LIP, ANEU, GFR #### [address] [place] [address] Hgb 15.4 G/dL Normal 14.0-18.0 [facility] ([place]) Comment on above: Performed By: #### C BC, CORNELIA, KLARISSA, W, LIP, ANEU, GFR #### [address] [address] MCH (RBC) [Entitic mass] 31.5 pg High 27.0-31.2 [facility] ([place]) Comment on above: Performed By: #### C BC, CORNELIA, KLARISSA, W, LIP, ANEU, GFR #### [place] [address] MCHC 34.8 G/dL Normal 31.8-35.4 [facility] ([place]) Comment on above: Performed By: #### C BC, CMP, KLARISSA, MDW, LIP, ANEU, GFR #### [address] [address] MCV (RBC) [Entitic vol] 90.6 fL Normal 80.0-94.0 A [facility] ([place]) Comment on above: Performed By: #### C BC, CMP, ADIFF, MDW, LIP, ANEU, GFR #### [address] [address] Platelet 294 10 3/mcL Normal 130-400 [facility] ([place]) Comment on above: Performed By: #### C BC, CMP, ADIFF, MDW, LIP, ANEU, GFR #### [address] [address] Platelet mean volume (Bld) [Entitic vol] 7.2 fL Low 7.4-10.4 [facility] ([place] Comment on above: Performed By: #### C BC, CMP, ADIFF, MDW, LIP, ANEU, GFR #### [address] [address] RBC 4.89 10 6/mcL Normal 4.04-6.13 [facility] ([place]) Comment on above: Performed By: #### C BC, CMP, ADIFF, MDW, LIP, ANEU, GFR #### [address] [address] WBC 8.8 10 3/mcL Normal 4.6-10.8 [facility] ([place] Comment on above: Performed By: #### C BC, CMP, ADIFF, MDW, LIP, ANEU, GFR #### [address] [address] CMPon 06-28-2023 Albumin Level 3.3 G/dL Low 3.5-5.0 [facility] ([place] Comment on above: Performed By: #### C BC, CMP, ADIFF, MDW, LIP, ANEU, GFR #### [address] [address] Albumin/Globulin [Mass ratio] 0.9 {ratio} Low 1.1-2.5 [facility] ([place]) Comment on above: Performed By: #### C BC, CMP, ADIFF, MDW, LIP, ANEU, GFR #### [address] [address] ALP [Catalytic activity/Vol] 46 U/L Normal 40-135 [facility] ([place]) Comment on above: Performed By: #### C BC, CMP, KLARISSA, W, LIP, ANEU, GFR #### [address] [address] ALT [Catalytic activity/Vol] 31 U/L Normal 16-63 [facility] ([place]) Comment on above: Performed By: #### C BC, CMP, KLARISSA, W, LIP, ANEU, GFR #### [address] [address] AST [Catalytic activity/Vol] 16 U/L Normal 10-40 [facility] ([place]) Comment on above: Performed By: #### C BC, CMP, KLARISSA, W, LIP, ANEU, GFR #### [address] [address] Bili Total 0.3 mg/dL Normal 0.2-1.0 [facility] ([place]) Comment on above: Result Comment: Use of this assay is not recommended for patients undergoing treatment with eltrombopag due to the potential for falsely elevated results. Performed By: #### C BC, CORNELIA, KLARISSA, ANURAG, LIP, ANEU, GFR #### [address] [address] BUN/Creatinine Ratio 13 ratio Normal 7-27 [facility] ([place]) Comment on above: Performed By: #### C BC, CORNELIA, KLARISSA, ANURAG, LIP, ANEU, GFR #### [address] [address] Calcium [Mass/Vol] 9.1 mg/dL Normal 8.4-10.2 [facility] ([place]) Comment on above: Performed By: #### C BC, CMP, KLARISSA, W, LIP, ANEU, GFR #### [address] [address] Chloride [Moles/Vol] 103 mmol/L Normal 98-107 [facility] ([place]) Comment on above: Performed By: #### C BC, CMP, ADIFF, MDW, LIP, ANEU, GFR #### [address] [address] CO2 [Moles/Vol] 30 mmol/L High 22-29 [facility] ([place]) Comment on above: Performed By: #### C BC, CMP, ADIFF, MDW, LIP, ANEU, GFR #### [address] [address] Creatinine [Mass/Vol] 0.91 mg/dL Normal 0.70-1.30 [facility] ([place]) Comment on above: Performed By: #### C BC, CMP, ADIFF, MDW, LIP, ANEU, GFR #### [address] [address] Electrolyte Balance 6.0 mEq/L Normal 4.0-15.0 [facility] ([place]) Comment on above: Performed By: #### C BC, CMP, ADIFF, MDW, LIP, ANEU, GFR #### [address] [address] Globulin 3.5 G/dL Normal [facility] ([place]) Comment on above: Performed By: #### C BC, CMP, ADIFF, MDW, LIP, ANEU, GFR #### [address] [address] Glucose [Mass/Vol] 137 mg/dL High 70-105 [facility] ([place]) Comment on above: Performed By: #### C BC, CMP, ADIFF, MDW, LIP, ANEU, GFR #### [address] [address] Potassium [Moles/Vol] 3.8 mmol/L Normal 3.5-5.1 [facility] ([place]) Comment on above: Performed By: #### C BC, CMP, ADIFF, MDW, LIP, ANEU, GFR #### [address] [address] Sodium [Moles/Vol] 139 mmol/L Normal 136-145 [facility] ([place]) Comment on above: Performed By: #### C BC, CMP, ADIFF, MDW, LIP, ANEU, GFR #### [address] [place], [place] [address] Total Protein 6.8 G/dL Normal 6.4-8.2 [facility] ([place]) Comment on above: Performed By: #### C BC, CMP, ADIFF, MDW, LIP, ANEU, GFR #### [address] [place], [place] [address] Urea nitrogen [Mass/Vol] 12 mg/dL Normal 7-18 [facility] ([place]) Comment on above: Performed By: #### C BC, CMP, ADIFF, MDW, LIP, ANEU, GFR #### [phone] [place], [place] [address] CT ABD/PELVIS W/ IV CONTRAST ONLYon 06-28-2023 [...] 06/28/2023 4:25:43 PM Ordering Provider: YOUNG Nelson [facility] ([place]) LABORATORYOrdered By: Becka Artis on 06-28-2023 [...] Lvl 1.4 mmol/L Normal 0.4-2.0 [facility] ([place]) Comment on above: Performed By: #### L AC #### [address] [address] LIPon 06-28-2023 Lipase Level 28 U/L Normal 16-77 [facility] ([place]) Comment on above: Performed By: #### C LANI, CORNELIA, ANURAG CYR, LIP, ANEU, GFR #### [address] [address] No Panel Informationon 06-28 Microscopic examination of blood, culture Culture has been received in lab and is no growth to date. Routine cultures are held for 5 days. [facility] UAon 06-28-2023 Color (U) Yellow Normal [facility] ([place]) Comment on above: Performed By: #### C CORNELIA GARIBAY ADIFF, MDW, LIP, ANEU, GFR #### [address] [address] Glucose (U) [Mass/Vol] Negative Normal Negative [facility] 1928[facility] ([place] Comment on above: Performed By: #### C CORNELIA GARIBAY ADIFF, MDW, LIP, ANEU, GFR #### [address] [address] Ketones Ql (U) Negative Normal Negative [facility] ([place]) Comment on above: Performed By: #### C LANI, KLARISSA LOCKE MDW, LIP, ANEU, GFR #### [address] [address] UA Appear Slightly Cloudy Abnormal Clear [facility] ([place]) Comment on above: Performed By: #### C LANI, KLARISSA LOCKE MDW, LIP, ANEU, GFR #### [address] [address] UA Blood Negative Normal Negative [facility] ([place]) Comment on above: Performed By: #### C BC, CMP, ADIFF, MDW, LIP, ANEU, GFR #### [address] [address] UA Leuk Est Negative Normal Negative [facility] [place] Comment on above: Performed By: #### C BC, CMP, ADIFF, MDW, LIP, ANEU, GFR #### [address] [address] UA Nitrite Negative Normal Negative [facility] ([place]) Comment on above: Performed By: #### C BC, CMP, ADIFF, MDW, LIP, ANEU, GFR #### [address] [address] UA pH 7.0 Normal 5.0 - 8.0 [facility] ([place]) Comment on above: Performed By: #### C BC, CMP, ADIFF, MDW, LIP, ANEU, GFR #### [address] [address] UA Protein Negative Normal Negative [facility] ([place]) Comment on above: Performed By: #### C BC, CMP, ADIFF, MDW, LIP, ANEU, GFR #### [address] [address] UA Spec Grav 1.020 Normal 1.015-1.025 [facility] ([place]) Comment on above: Performed By: #### C BC, CMP, ADIFF, MDW, LIP, ANEU, GFR #### [address] [address] UA Specimen Type Clean Catch Normal [facility] ([place]) Comment on above: Performed By: #### C BC, CMP, ADIFF, MDW, LIP, ANEU, GFR #### [address] [address] UA Urobilinogen 0.2 E.U./dL Normal 0.2-1.0 [facility] ([place]) Comment on above: Performed By: #### C BC, CMP, ADIFF, MDW, LIP, ANEU, GFR #### [address] [address] Urobilinogen (U) [Mass/Vol] Negative Normal Negative [facility] ([place]) Comment on above: Performed By: #### C LANI, CORNELIA, MD KLARISSAW, LIP, ANEU, GFR #### [facility] [address] [place], [place] [address] CNPVesna 06-25-2023 CNPN Telephone (GENSMN) PATRICK KORMOA ([id number]) 1980 M Date Time Provider Department 06/25/23 MOHAN MILLER During your visit today, we recorded the following information about you: Mohan Miller OCCA 06/25/2023 12:52 PM Signed Reviewed chart for clinic prep. Patient has recent CT in Epic. Obtained operative reports from [facility], sent for scanning. CHUY Coyne-PMAR Allergies As of Date: 06/25/2023 Noted Allergy [...] Status:Closed by MOHAN MILLER on 06/25/23 Normal [facility] .Auto Diffon 06-08-2023 Basophil, Absolute 0.1 10 3/mcL Normal 0.0-0.2 [facility] ([place]) Comment on above: Performed By: #### C BC, CMP, ADIFF, MDW, LIP, ANEU, GFR #### [address] [address] Basophils/100 WBC (Bld) 1.2 % Normal 0.0-2.5 A [facility] ([place]) Comment on above: Performed By: #### C BC, CMP, ADIFF, MDW, LIP, ANEU, GFR #### [address] [address] Eosinophil, Absolute 0.2 10 3/mcL Normal 0.0-0.4 [facility], 1928–1983 ([place]) Comment on above: Performed By: #### C BC, CMP, ADIFF, MDW, LIP, ANEU, GFR #### [address] [address] Eosinophils/100 WBC (Bld) 2.1 % Normal 0.0-7.0 [facility] ([place]) Comment on above: Performed By: #### C BC, CMP, ADIFF, MDW, LIP, ANEU, GFR #### [address] [address] Lymphocyte, Absolute 2.8 10 3/mcL Normal 0.8-3.9 [facility] ([place]) Comment on above: Performed By: #### C BC, CMP, ADJAN, MDW, LIP, ANEU, GFR #### [address] [address] Lymphocytes/100 WBC (Bld) 26.1 % Normal 10.0-50.0 [facility] ([place]) Comment on above: Performed By: #### C BC, CMP, ADIFF, MDW, LIP, ANEU, GFR #### [address] [address] Monocyte, Absolute 0.6 10 3/mcL Normal 0.2-1.0 [facility] ([place]) Comment on above: Performed By: #### C BC, CMP, ADIFF, MDW, LIP, ANEU, GFR #### [address] [address] Monocytes/100 WBC (Bld) 5.8 % Normal 1.7-13.0 A [facility] ([place]) Comment on above: Performed By: #### C BC, CMP, ADIFF, MDW, LIP, ANEU, GFR #### [address] [address] Neutrophils/100 WBC (Bld) 64.8 % Normal 37.0-80.0 [facility] ([place]) Comment on above: Performed By: #### C BC, CMP, ADIFF, MDW, LIP, ANEU, GFR #### [address] [address] .GFRon 06-08-2023 GFR 124 ml/min/1.73sqm Normal [facility] ([place]) Comment on above: Result Comment: GFR [...] CMP, ADIFF, MDW, LIP, ANEU, GFR #### [address] [address] GFR Non- 102 ml/min/1.73sqm Normal [facility] ([place]) Comment on above: Result Comment: GFR [...] CORNELIA, KLARISSA, ANURAG, LIP, ANEU, GFR #### [address] [address] .MDWon 06-08-2023 Monocyte Distribution Width 18.49 Normal 0.00-20.00 [facility] ([place]) Comment on above: Result Comment: For ED adult patients suspected of sepsis, MDW<=20.0 does not rule out sepsis or risk of sepsis Performed By: #### C LANI, CORNELIA, ANURAG CYR, LIP, ANEU, GFR #### [address] [address] .NEUABSon 06-08-2023 Neutrophil, Absolute 6.9 10 3/mcL High 2.9-6.2 [facility] ([place] Comment on above: Performed By: #### C LANI, CORNELIA, KLARISSA, ANURAG, LIP, ANEU, GFR #### [address] [address] BMPon 06-08-2023 BUN/Creatinine Ratio 15 ratio Normal 7-27 [facility] ([place]) Comment on above: Performed By: #### C LANI, CORNELIA, KLARISSA, ANURAG, LIP, ANEU, GFR #### [address] [address] Calcium [Mass/Vol] 8.9 mg/dL Normal 8.4-10.2 [facility] ([place]) Comment on above: Performed By: #### C BC, CMP, ADIFF, MDW, LIP, ANEU, GFR #### [address] [address] Chloride [Moles/Vol] 104 mmol/L Normal 98-107 [facility] ([place]) Comment on above: Performed By: #### C BC, CMP, ADIFF, MDW, LIP, ANEU, GFR #### [address] [address] CO2 [Moles/Vol] 26 mmol/L Normal 22-29 [facility] ([place]) Comment on above: Performed By: #### C BC, CMP, ADIFF, MDW, LIP, ANEU, GFR #### [address] [address] Creatinine [Mass/Vol] 0.82 mg/dL Normal 0.70-1.30 [facility] ([place]) Comment on above: Performed By: #### C BC, CMP, ADIFF, MDW, LIP, ANEU, GFR #### [address] [address] Electrolyte Balance 10.0 mEq/L Normal 4.0-15.0 [facility] ([place]) Comment on above: Performed By: #### C BC, CMP, ADIFF, MDW, LIP, ANEU, GFR #### [address] [address] Glucose [Mass/Vol] 110 mg/dL High 70-105 [facility] ([place]) Comment on above: Performed By: #### C BC, CMP, ADIFF, MDW, LIP, ANEU, GFR #### [address] [address] Potassium [Moles/Vol] 4.2 mmol/L Normal 3.5-5.1 [facility] ([place]) Comment on above: Performed By: #### C BC, CMP, ADIFF, MDW, LIP, ANEU, GFR #### [address] [address] Sodium [Moles/Vol] 140 mmol/L Normal 136-145 [facility] ([place]) Comment on above: Performed By: #### C BC, CMP, KLARISSA, MDW, LIP, ANEU, GFR #### [place] [address] Urea nitrogen [Mass/Vol] 12 mg/dL Normal 7-18 [facility] ([place]) Comment on above: Performed By: #### C BC, CMP, ADIFF, MDW, LIP, ANEU, GFR #### [place] [address] CBCon 06-08-2023 Erythrocyte distribution width (RBC) [Ratio] 13.6 % Normal 11.5-14.5 [facility] ([place]) Comment on above: Performed By: #### C BC, CMP, KLARISSA, MDW, LIP, ANEU, GFR #### [place] [address] Hematocrit (Bld) [Volume fraction] 43.4 % Normal 42.0-52.0 [facility] ([place]) Comment on above: Performed By: #### C BC, CMP, KLARISSA, MDW, LIP, ANEU, GFR #### [place] [address] Hgb 14.9 G/dL Normal 14.0-18.0 [facility] ([place]) Comment on above: Performed By: #### C BC, CMP, KLARISSA, MDW, LIP, ANEU, GFR #### [place] [address] MCH (RBC) [Entitic mass] 31.1 pg Normal 27.0-31.2 [facility] ([place]) Comment on above: Performed By: #### C BC, CMP, XUIFF, MDW, LIP, ANEU, GFR #### [place] MCHC 34.4 G/dL Normal 31.8-35.4 [facility] ([place]) Comment on above: Performed By: #### C BC, CMP, ADIFF, MDW, LIP, ANEU, GFR #### [address] [address] MCV (RBC) [Entitic vol] 90.5 fL Normal 80.0-94.0 A [facility] ([place]) Comment on above: Performed By: #### C BC, CMP, KLARISSA, W, LIP, ANEU, GFR #### [place] [address] Platelet 283 10 3/mcL Normal 130-400 [facility] [place] Comment on above: Performed By: #### C BC, CMP, KLARISSA, W, LIP, ANEU, GFR #### [place] [address] Platelet mean volume (Bld) [Entitic vol] 8.0 fL Normal 7.4-10.4 [facility] [place]) Comment on above: Performed By: #### C LANI, CORNELIA, KLARISSA, W, LIP, ANEU, GFR #### [place] [address] RBC 4.80 10 6/mcL Normal 4.04-6.13 [facility] ([place]) Comment on above: Performed By: #### C BC, CMP, KLARISSA, W, LIP, ANEU, GFR #### [place] [address] WBC 10.6 10 3/mcL Normal 4.6-10.8 [facility] ([place]) Comment on above: Performed By: #### C BC, CMP, KLARISSA, W, LIP, ANEU, GFR #### [place] [address] LABORATORYOrdered By: SYSTEM SYSTEM on 06-08-2023 Basophil, [...] SS .GFRon 05-17-2023 GFR 111 ml/min/1.73sqm Normal [facility] ([place]) Comment on above: Result Comment: GFR [...] CMP, KLARISSA, MDW, LIP, ANEU, GFR #### [address] [address] GFR Non- 92 ml/min/1.73sqm Normal [facility] ([place]) Comment on above: Result Comment: GFR [...] CMP, ADIFF, MDW, LIP, ANEU, GFR #### [address] [address] BMPon 05-17-2023 BUN/Creatinine Ratio 14 ratio Normal 7-27 [facility] ([place]) Comment on above: Performed By: #### C BC, CMP, ADIFF, MDW, LIP, ANEU, GFR #### [address] [address] Calcium [Mass/Vol] 9.5 mg/dL Normal 8.4-10.2 [facility] ([place]) Comment on above: Performed By: #### C BC, CMP, ADIFF, MDW, LIP, ANEU, GFR #### [address] [address] Chloride [Moles/Vol] 103 mmol/L Normal 98-107 [facility] ([place]) Comment on above: Performed By: #### C BC, CMP, ADIFF, MDW, LIP, ANEU, GFR #### [address] [address] CO2 [Moles/Vol] 24 mmol/L Normal 22-29 [facility] ([place]) Comment on above: Performed By: #### C BC, CMP, ADIFF, MDW, LIP, ANEU, GFR #### [address] [address] Creatinine [Mass/Vol] 0.90 mg/dL Normal 0.70-1.30 [facility] ([place]) Comment on above: Performed By: #### C BC, CMP, ADIFF, MDW, LIP, ANEU, GFR #### [address] [address] Electrolyte Balance 15.0 mEq/L Normal 4.0-15.0 [facility] ([place]) Comment on above: Performed By: #### C BC, CMP, ADIFF, MDW, LIP, ANEU, GFR #### [address] [address] Glucose [Mass/Vol] 98 mg/dL Normal 70-105 [facility] ([place]) Comment on above: Performed By: #### C LANI, CORNELIA, ANURAG CYR, LIP, ANEU, GFR #### [address] [place], [place] [address] Potassium [Moles/Vol] 4.6 mmol/L Normal 3.5-5.1 [facility] ([place]) Comment on above: Performed By: #### C LANI, CORNELIA, KLARISSA, ANURAG, LIP, ANEU, GFR #### [address] [place], [place] [address] Sodium [Moles/Vol] 142 mmol/L Normal 136-145 [facility] ([place]) Comment on above: Performed By: #### C LANI, CORNELIA, KLARISSA, ANURAG, LIP, ANEU, GFR #### [address] [place], [place] [address] Urea nitrogen [Mass/Vol] 13 mg/dL Normal 7-18 [facility] ([place]) Comment on above: Performed By: #### C LANI, CORNELIA, ANURAG CYR, LIP, ANEU, GFR #### [address] [place], [place] [address] CT ABD/PELVIS W/ IV CONTRAST ONLYon 05-17-2023 [...] 05/16/2023 10:45:51 PM Ordering Provider: TOI Nelson [facility] ([place]) .Auto Diffon 05-16-2023 Basophil, Absolute 0.1 10 3/mcL Normal 0.0-0.2 [facility] ([place]) Comment on above: Performed By: #### C BC, CMP, XUIFF, MDW, LIP, ANEU, GFR #### [address] [address] Basophils/100 WBC (Bld) 1.1 % Normal 0.0-2.5 A [facility] ([place]) Comment on above: Performed By: #### C BC, CMP, ADIFF, MDW, LIP, ANEU, GFR #### [address] [place], [place] [address] Eosinophil, Absolute 0.3 10 3/mcL Normal 0.0-0.4 [facility] 1928–[facility] ([place] Comment on above: Performed By: #### C BC, CMP, ADIFF, MDW, LIP, ANEU, GFR #### [address] [place], [place] [address] Eosinophils/100 WBC (Bld) 1.9 % Normal 0.0-7.0 [facility] ([place]) Comment on above: Performed By: #### C BC, CMP, ADIFF, MDW, LIP, ANEU, GFR #### [address] [address] Lymphocyte, Absolute 3.4 10 3/mcL Normal 0.8-3.9 [facility] ([place] Comment on above: Performed By: #### C BC, CMP, ADIFF, MDW, LIP, ANEU, GFR #### [address] [address] Lymphocytes/100 WBC (Bld) 25.6 % Normal 10.0-50.0 [facility] ([place]) Comment on above: Performed By: #### C BC, CMP, ADIFF, MDW, LIP, ANEU, GFR #### [address] [address] Monocyte, Absolute 0.8 10 3/mcL Normal 0.2-1.0 [facility] ([place]) Comment on above: Performed By: #### C BC, CMP, ADIFF, MDW, LIP, ANEU, GFR #### [address] [address] Monocytes/100 WBC (Bld) 6.0 % Normal 1.7-13.0 A [facility] ([place]) Comment on above: Performed By: #### C BC, CMP, ADIFF, MDW, LIP, ANEU, GFR #### [address] [address] Neutrophils/100 WBC (Bld) 65.4 % Normal 37.0-80.0 [facility] ([place]) Comment on above: Performed By: #### C BC, CMP, ADIFF, MDW, LIP, ANEU, GFR #### [address] [address] .GFRon 05-16-2023 GFR 98 ml/min/1.73sqm Normal [facility] ([place]) Comment on above: Result Comment: GFR [...] CORNELIA, KLARISSA, ANURAG, LIP, ANEU, GFR #### [address] [address] GFR Non- 81 ml/min/1.73sqm Normal [facility] ([place]) Comment on above: Result Comment: GFR [...] CMP, KLARISSA, ANURAG, LIP, ANEU, GFR #### [address] [address] .MDWon 05-16-2023 Monocyte Distribution Width 17.52 Normal 0.00-20.00 [facility] ([place]) Comment on above: Result Comment: For ED adult patients suspected of sepsis, MDW<=20.0 does not rule out sepsis or risk of sepsis Performed By: #### C BC, CMP, KLARISSA, ANURAG, LIP, ANEU, GFR #### [place] [address] .NEUABSon 05-16-2023 Neutrophil, Absolute 8.7 10 3/mcL High 2.9-6.2 [facility] ([place] Comment on above: Performed By: #### C BC, CORNELIA, KLARISSA, MDW, LIP, ANEU, GFR #### [place] [address] CBCon 05-16-2023 Erythrocyte distribution width (RBC) [Ratio] 13.4 % Normal 11.5-14.5 [facility] ([place]) Comment on above: Performed By: #### C LANI, CORNELIA, KLARISSA, MDW, LIP, ANEU, GFR #### [place] [address] Hematocrit (Bld) [Volume fraction] 45.6 % Normal 42.0-52.0 [facility] ([place]) Comment on above: Performed By: #### C BC, CORNELIA, KLARISSA, W, LIP, ANEU, GFR #### [place] [address] Hgb 15.6 G/dL Normal 14.0-18.0 [facility] ([place]) Comment on above: Performed By: #### C BC, CORNELIA, KLARISSA, W, LIP, ANEU, GFR #### [place] [address] MCH (RBC) [Entitic mass] 30.9 pg Normal 27.0-31.2 [facility] ([place]) Comment on above: Performed By: #### C BC, CORNELIA, KLARISSA, MDW, LIP, ANEU, GFR #### [place] [address] MCHC 34.1 G/dL Normal 31.8-35.4 [facility] ([place]) Comment on above: Performed By: #### C BC, CMP, KLARISSA, MDW, LIP, ANEU, GFR #### [place] [address] MCV (RBC) [Entitic vol] 90.6 fL Normal 80.0-94.0 A [facility] ([place] Comment on above: Performed By: #### C BC, CMP, ADIFF, MDW, LIP, ANEU, GFR #### [address] [address] Platelet 303 10 3/mcL Normal 130-400 [facility] [place] Comment on above: Performed By: #### C BC, CMP, ADIFF, MDW, LIP, ANEU, GFR #### [address] [address] Platelet mean volume (Bld) [Entitic vol] 7.3 fL Low 7.4-10.4 [facility] [place] Comment on above: Performed By: #### C BC, CMP, ADIFF, MDW, LIP, ANEU, GFR #### [address] [address] RBC 5.04 10 6/mcL Normal 4.04-6.13 [facility] ([place]) Comment on above: Performed By: #### C BC, CMP, ADIFF, MDW, LIP, ANEU, GFR #### [address] [address] WBC 13.3 10 3/mcL High 4.6-10.8 [facility] ([place]) Comment on above: Performed By: #### C BC, CMP, ADIFF, MDW, LIP, ANEU, GFR #### [address] [address] CMPon 05-16-2023 Albumin Level 3.4 G/dL Low 3.5-5.0 [facility] ([place]) Comment on above: Performed By: #### C BC, CMP, ADIFF, MDW, LIP, ANEU, GFR #### [address] [address] Albumin/Globulin [Mass ratio] 0.9 {ratio} Low 1.1-2.5 [facility] ([place]) Comment on above: Performed By: #### C BC, CMP, ADIFF, MDW, LIP, ANEU, GFR #### [address] [address] ALP [Catalytic activity/Vol] 47 U/L Normal 40-135 [facility] ([place]) Comment on above: Performed By: #### C BC, CMP, KLARISSA, W, LIP, ANEU, GFR #### [address] [address] ALT [Catalytic activity/Vol] 23 U/L Normal 16-63 [facility] ([place]) Comment on above: Performed By: #### C BC, CMP, KLARISSA, MDW, LIP, ANEU, GFR #### [address] [address] AST [Catalytic activity/Vol] 21 U/L Normal 10-40 [facility] ([place]) Comment on above: Performed By: #### C BC, CMP, KLARISSA, MDW, LIP, ANEU, GFR #### [address] [address] Bili Total 0.2 mg/dL Normal 0.2-1.0 [facility] ([place]) Comment on above: Result Comment: Use of this assay is not recommended for patients undergoing treatment with eltrombopag due to the potential for falsely elevated results. Performed By: #### C BC, CORNELIA, KLARISSA, W, LIP, ANEU, GFR #### [address] [address] BUN/Creatinine Ratio 14 ratio Normal 7-27 [facility] ([place]) Comment on above: Performed By: #### C BC, CORNELIA, KLARISSA, W, LIP, ANEU, GFR #### [address] [address] Calcium [Mass/Vol] 9.3 mg/dL Normal 8.4-10.2 [facility] ([place]) Comment on above: Performed By: #### C BC, CMP, KLARISSA, MDW, LIP, ANEU, GFR #### [address] [address] Chloride [Moles/Vol] 96 mmol/L Low 98-107 [facility] ([place]) Comment on above: Performed By: #### C BC, CMP, ADIFF, MDW, LIP, ANEU, GFR #### [address] [address] CO2 [Moles/Vol] 24 mmol/L Normal 22-29 [facility] ([place] Comment on above: Performed By: #### C BC, CMP, ADIFF, MDW, LIP, ANEU, GFR #### [address] [address] Creatinine [Mass/Vol] 1.00 mg/dL Normal 0.70-1.30 [facility] ([place]) Comment on above: Performed By: #### C BC, CMP, ADIFF, MDW, LIP, ANEU, GFR #### [address] [address] Electrolyte Balance 6.0 mEq/L Normal 4.0-15.0 [facility] ([place]) Comment on above: Performed By: #### C BC, CMP, ADIFF, MDW, LIP, ANEU, GFR #### [address] [address] Globulin 3.8 G/dL Normal [facility] ([place]) Comment on above: Performed By: #### C BC, CMP, ADIFF, MDW, LIP, ANEU, GFR #### [address] [address] Glucose [Mass/Vol] 121 mg/dL High 70-105 [facility] ([place]) Comment on above: Performed By: #### C BC, CMP, ADIFF, MDW, LIP, ANEU, GFR #### [address] [address] Potassium [Moles/Vol] 3.8 mmol/L Normal 3.5-5.1 [facility] ([place]) Comment on above: Performed By: #### C BC, CMP, ADIFF, MDW, LIP, ANEU, GFR #### [address] [address] Sodium [Moles/Vol] 126 mmol/L Low 136-145 [facility] ([place]) Comment on above: Performed By: #### C BC, CMP, KLARISSA, W, LIP, ANEU, GFR #### [address] [address] Total Protein 7.2 G/dL Normal 6.4-8.2 [facility] ([place]) Comment on above: Performed By: #### C BC, CMP, KLARISSA, W, LIP, ANEU, GFR #### [place] [address] [place], [place] [address] Urea nitrogen [Mass/Vol] 14 mg/dL Normal 7-18 [facility] ([place]) Comment on above: Performed By: #### C BC, CORNELIA, KLARISSA, W, LIP, ANEU, GFR #### [address] [address] LABORATORYOrdered By: SYSTEM SYSTEM on 05-16-2023 Albumin [...] 05-16-2023 Lipase Level 20 U/L Normal 16-77 [facility] [place] Comment on above: Performed By: #### C , CMP, KLARISSA, MDW, LIP, ANEU, GFR #### [place] [address] [address] UAon 05-16-2023 Color (U) Yellow Normal [facility] ([place]) Comment on above: Performed By: #### U A #### [address] [address] Glucose (U) [Mass/Vol] Negative Normal Negative [facility] ([place] Comment on above: Performed By: #### U A #### [address] [address] Ketones Ql (U) Negative Normal Negative [facility] ([place] Comment on above: Performed By: #### U A #### [address] [address] UA Appear Clear Normal Clear [facility] ([place] Comment on above: Performed By: #### U A #### [address] [address] UA Blood Negative Normal Negative [facility] ([place] Comment on above: Performed By: #### U A #### [address] [address] UA Leuk Est Negative Normal Negative [facility] [place] Comment on above: Performed By: #### U A #### [address] [address] UA Nitrite Negative Normal Negative [facility] ([place]) Comment on above: Performed By: #### U A #### [address] [address] UA pH 6.0 Normal 5.0 - 8.0 [facility] ([place]) Comment on above: Performed By: #### U A #### [address] [address] UA Protein Negative Normal Negative [facility] ([place]) Comment on above: Performed By: #### U A #### [place] [id number] UA Spec Grav >=1.030 Abnormal 1.015-1.025 [facility] ([place] Comment on above: Performed By: #### U A #### [address] [address] UA Specimen Type Clean Catch Normal [facility] ([place]) Comment on above: Performed By: #### U A #### [address] [address] UA Urobilinogen 0.2 E.U./dL Normal 0.2-1.0 [facility] ([place] Comment on above: Performed By: #### U A #### [address] [address] Urobilinogen (U) [Mass/Vol] Negative Normal Negative [facility] ([place]) Comment on above: Performed By: #### U A #### [address] [address] .Auto Diffon 02-12-2023 Basophil, Absolute 0.1 10 3/mcL Normal 0.0-0.2 [facility] [facility] ([place] Comment on above: Performed By: #### C BC, CORNELIA, KLARISSA, W, LIP, ANEU, GFR #### [address] [address] Basophils/100 WBC (Bld) 1.2 % Normal 0.0-2.5 A [facility] ([place]) Comment on above: Performed By: #### C BC, CMP, MD KLARISSAW, LIP, ANEU, GFR #### [address] [address] Eosinophil, Absolute 0.1 10 3/mcL Normal 0.0-0.4 [facility]ly [facility], 1928[facility] ([place]) Comment on above: Performed By: #### C BC, CMP, KLARISSA, W, LIP, ANEU, GFR #### [address] [address] Eosinophils/100 WBC (Bld) 1.4 % Normal 0.0-7.0 [facility] ([place]) Comment on above: Performed By: #### C BC, CMP, KLARISSA, MDW, LIP, ANEU, GFR #### [address] [address] Lymphocyte, Absolute 3.3 10 3/mcL Normal 0.8-3.9 [facility] ([place] Comment on above: Performed By: #### C BC, CMP, ADIFF, MDW, LIP, ANEU, GFR #### [address] [address] Lymphocytes/100 WBC (Bld) 35.7 % Normal 10.0-50.0 [facility] ([place]) Comment on above: Performed By: #### C BC, CMP, ADIFF, MDW, LIP, ANEU, GFR #### [address] [address] Monocyte, Absolute 0.5 10 3/mcL Normal 0.2-1.0 [facility] ([place]) Comment on above: Performed By: #### C BC, CMP, ADIFF, MDW, LIP, ANEU, GFR #### [address] [address] Monocytes/100 WBC (Bld) 5.1 % Normal 1.7-13.0 A [facility] ([place]) Comment on above: Performed By: #### C BC, CMP, ADIFF, MDW, LIP, ANEU, GFR #### [address] [address] Neutrophils/100 WBC (Bld) 56.6 % Normal 37.0-80.0 [facility] ([place]) Comment on above: Performed By: #### C BC, CMP, ADIFF, MDW, LIP, ANEU, GFR #### [address] [address] .GFRon 02-12-2023 GFR Non- 121 ml/min/1.73sqm Normal [facility] ([place]) Comment on above: Result Comment: GFR [...] CMP, KLARISSA, MDW, LIP, ANEU, GFR #### [address] [address] GFR 146 ml/min/1.73sqm Normal [facility] ([place]) Comment on above: Result Comment: GFR [...] CMP, ADJAN, MDW, LIP, ANEU, GFR #### [address] [address] .MDWon 02-12-2023 Monocyte Distribution Width 19.74 Normal 0.00-20.00 [facility] ([place]) Comment on above: Result Comment: For ED adult patients suspected of sepsis, MDW<=20.0 does not rule out sepsis or risk of sepsis Performed By: #### C BC, CMP, ADIFF, MDW, LIP, ANEU, GFR #### [address] [address] .NEUABSon 02-12-2023 Neutrophil, Absolute 5.2 10 3/mcL Normal 2.9-6.2 [facility] ([place] Comment on above: Performed By: #### C BC, CMP, ADIFF, MDW, LIP, ANEU, GFR #### [address] [address] CBCon 02-12-2023 Erythrocyte distribution width (RBC) [Ratio] 14.0 % Normal 11.5-14.5 [facility] ([place]) Comment on above: Order Comment: clott ed Performed By: #### C BC, CMP, ADIFF, MDW, LIP, ANEU, GFR #### [address] [address] Hematocrit (Bld) [Volume fraction] 44.7 % Normal 42.0-52.0 [facility] ([place]) Comment on above: Order Comment: clott ed Performed By: #### C BC, CMP, ADIFF, MDW, LIP, ANEU, GFR #### [address] [address] Hgb 15.5 G/dL Normal 14.0-18.0 [facility] ([place]) Comment on above: Order Comment: clott ed Performed By: #### C BC, CMP, ADIFF, MDW, LIP, ANEU, GFR #### [address] [address] MCH (RBC) [Entitic mass] 30.6 pg Normal 27.0-31.2 [facility] ([place]) Comment on above: Order Comment: clott ed Performed By: #### C BC, CMP, ADIFF, MDW, LIP, ANEU, GFR #### [address] [address] MCHC 34.6 G/dL Normal 31.8-35.4 [facility] ([place]) Comment on above: Order Comment: clott ed Performed By: #### C BC, CMP, ADIFF, MDW, LIP, ANEU, GFR #### [address] [address] MCV (RBC) [Entitic vol] 88.4 fL Normal 80.0-94.0 A [facility] ([place]) Comment on above: Order Comment: clott ed Performed By: #### C BC, CMP, ADIFF, MDW, LIP, ANEU, GFR #### [address] [address] Platelet 271 10 3/mcL Normal 130-400 [facility] [place]) Comment on above: Order Comment: clott ed Performed By: #### C BC, CMP, ADIFF, MDW, LIP, ANEU, GFR #### [address] [address] Platelet mean volume (Bld) [Entitic vol] 7.2 fL Low 7.4-10.4 [facility] [place]) Comment on above: Order Comment: clott ed Performed By: #### C BC, CMP, ADJAN, MDW, LIP, ANEU, GFR #### [address] [address] RBC 5.06 10 6/mcL Normal 4.04-6.13 [facility] ([place]) Comment on above: Order Comment: clott ed Performed By: #### C BC, CMP, ADIFF, MDW, LIP, ANEU, GFR #### [address] [address] WBC 9.3 10 3/mcL Normal 4.6-10.8 [facility] [place]) Comment on above: Order Comment: clott ed Performed By: #### C BC, CMP, KLARISSA, MDW, LIP, ANEU, GFR #### [address] [address] CMPon 02-12-2023 Albumin Level 3.2 G/dL Low 3.5-5.0 [facility] ([place]) Comment on above: Performed By: #### C BC, CMP, KLARISSA, MDW, LIP, ANEU, GFR #### [address] [address] Albumin/Globulin [Mass ratio] 0.8 {ratio} Low 1.1-2.5 [facility] ([place]) Comment on above: Performed By: #### C BC, CMP, KLARISSA, MDW, LIP, ANEU, GFR #### [address] [address] ALP [Catalytic activity/Vol] 40 U/L Normal 40-135 [facility] ([place]) Comment on above: Performed By: #### C BC, CMP, ADIFF, MDW, LIP, ANEU, GFR #### [address] [address] ALT [Catalytic activity/Vol] 25 U/L Normal 16-63 [facility] ([place]) Comment on above: Performed By: #### C BC, CMP, ADIFF, MDW, LIP, ANEU, GFR #### [address] [address] AST [Catalytic activity/Vol] 32 U/L Normal 10-40 [facility] ([place]) Comment on above: Performed By: #### C BC, CMP, ADIFF, MDW, LIP, ANEU, GFR #### [address] [address] Bili Total 0.3 mg/dL Normal 0.2-1.0 [facility] ([place]) Comment on above: Result Comment: Use of this assay is not recommended for patients undergoing treatment with eltrombopag due to the potential for falsely elevated results. Performed By: #### C BC, CMP, ADIFF, MDW, LIP, ANEU, GFR #### [address] [address] BUN/Creatinine Ratio 13 ratio Normal 7-27 [facility] ([place]) Comment on above: Performed By: #### C BC, CMP, ADIFF, MDW, LIP, ANEU, GFR #### [address] [address] Calcium [Mass/Vol] 8.2 mg/dL Low 8.4-10.2 [facility] ([place]) Comment on above: Performed By: #### C BC, CMP, ADIFF, MDW, LIP, ANEU, GFR #### [address] [address] Chloride [Moles/Vol] 102 mmol/L Normal 98-107 [facility] ([place]) Comment on above: Performed By: #### C BC, CMP, ADIFF, MDW, LIP, ANEU, GFR #### [address] [address] CO2 [Moles/Vol] 26 mmol/L Normal 22-29 [facility] ([place]) Comment on above: Performed By: #### C BC, CMP, ADIFF, MDW, LIP, ANEU, GFR #### [address] [address] Creatinine [Mass/Vol] 0.71 mg/dL Normal 0.70-1.30 [facility] ([place]) Comment on above: Performed By: #### C BC, CMP, ADIFF, MDW, LIP, ANEU, GFR #### [address] [address] Electrolyte Balance 9.0 mEq/L Normal 4.0-15.0 [facility] ([place]) Comment on above: Performed By: #### C BC, CMP, ADIFF, MDW, LIP, ANEU, GFR #### [address] [address] Globulin 3.9 G/dL Normal [facility] ([place]) Comment on above: Performed By: #### C BC, CMP, ADIFF, MDW, LIP, ANEU, GFR #### [address] [address] Glucose [Mass/Vol] 118 mg/dL High 70-105 [facility] ([place]) Comment on above: Performed By: #### C BC, CMP, ADIFF, MDW, LIP, ANEU, GFR #### [address] [address] Potassium [Moles/Vol] 4.9 mmol/L Normal 3.5-5.1 [facility] ([place]) Comment on above: Performed By: #### C BC, CMP, ADIFF, MDW, LIP, ANEU, GFR #### [address] [address] Sodium [Moles/Vol] 137 mmol/L Normal 136-145 [facility] ([place]) Comment on above: Performed By: #### C LANI, CORNELIA, MD KLARISSAW, LIP, ANEU, GFR #### [address] [place], [place] [address] Total Protein 7.1 G/dL Normal 6.4-8.2 [facility] ([place]) Comment on above: Performed By: #### C BC, CORNELIA, KLARISSA, W, LIP, ANEU, GFR #### [address] [place], [place] [address] Urea nitrogen [Mass/Vol] 9 mg/dL Normal 7-18 [facility] ([place]) Comment on above: Performed By: #### C LANI, CORNELIA, KLARISSA, W, LIP, ANEU, GFR #### [address] [address] [address] ABD/PELVIS W/ IV CONTRAST ONLYon 02-12-2023 [...] 02/12/2023 8:10:54 PM Ordering Provider: WOODROW MCALLISTER [facility] ([place]) LABORATORYOrdered By: SYSTEM SYSTEM [...] 02-12-2023 Lipase Level 39 U/L Normal 16-77 [facility] [place]) Comment on above: Performed By: #### C LANI, CORNELIA, ANURAG CYR, LIP, ANEU, GFR #### [address] [address] TROPHSon 02-12-2023 Troponin I High Sensitivity 4.0 ng/L Normal 0.0-76.2 [facility] ([place]) Comment on above: Performed By: #### C CORNELIA GARIBAY, ANURAG CYR, LIP, ANEU, GFR #### [address] [address] UAon 02-12-2023 Color (U) Yellow Normal [facility] ([place]) Comment on above: Performed By: #### U A #### [facility] [address] [place], [place] [address] Glucose (U) [Mass/Vol] Negative Normal Negative [facility] ([place]) Comment on above: Performed By: #### U A #### [facility] [address] [place], [place] [address] Ketones Ql (U) Negative Normal Negative [facility] ([place]) Comment on above: Performed By: #### U A #### [facility] [address] [place], [place] [address] UA Appear Clear Normal Clear [facility] ([place]) Comment on above: Performed By: #### U A #### [facility] [place], [place] [address] UA Blood Negative Normal Negative [facility] ([place]) Comment on above: Performed By: #### U A #### [facility] [address] [place], [place] [address] UA Leuk Est Negative Normal Negative [facility] [place] Comment on above: Performed By: #### U A #### [facility] [place], [place] [address] UA Nitrite Negative Normal Negative [facility] ([place]) Comment on above: Performed By: #### U A #### [address] [place], [place] [address] UA pH 7.0 Normal 5.0 - 8.0 [facility] ([place]) Comment on above: Performed By: #### U A #### [facility] [place], [place] [address] UA Protein Negative Normal Negative [facility] ([place]) Comment on above: Performed By: #### U A #### [address] [place], [place] [address] UA Spec Grav 1.015 Normal 1.015-1.025 [facility] ([place]) Comment on above: Performed By: #### U A #### [facility] [place], [place] [address] UA Specimen Type Clean Catch Normal [facility] ([place]) Comment on above: Performed By: #### U A #### [facility] [address] [place], [place] [address] UA Urobilinogen 0.2 E.U./dL Normal 0.2-1.0 [facility] ([place]) Comment on above: Performed By: #### U A #### [facility] [address] [place], [place] [address] Urobilinogen (U) [Mass/Vol] Negative Normal Negative [facility] ([place]) Comment on above: Performed By: #### U A #### [facility] [address] [place], [place] [address] .Auto Diffon 10-20-2022 Basophil, Absolute 0.1 10 3/mcL Normal 0.0-0.2 [facility] ([place]) Comment on above: Performed By: #### C BC, CMP, ADIFF, MDW, LIP, ANEU, GFR #### [address] [address] Basophils/100 WBC (Bld) 1.1 % Normal 0.0-2.5 A [facility] ([place]) Comment on above: Performed By: #### C BC, CMP, ADIFF, MDW, LIP, ANEU, GFR #### [address] [address] Eosinophil, Absolute 0.1 10 3/mcL Normal 0.0-0.4 [facility] ([place] Comment on above: Performed By: #### C BC, CMP, ADIFF, MDW, LIP, ANEU, GFR #### [address] [address] Eosinophils/100 WBC (Bld) 1.7 % Normal 0.0-7.0 [facility] ([place]) Comment on above: Performed By: #### C BC, CMP, ADIFF, MDW, LIP, ANEU, GFR #### [address] [address] Lymphocyte, Absolute 2.3 10 3/mcL Normal 0.8-3.9 [facility] ([place] Comment on above: Performed By: #### C BC, CMP, ADIFF, MDW, LIP, ANEU, GFR #### [address] [address] Lymphocytes/100 WBC (Bld) 26.4 % Normal 10.0-50.0 [facility] ([place]) Comment on above: Performed By: #### C BC, CMP, ADIFF, MDW, LIP, ANEU, GFR #### [address] [address] Monocyte, Absolute 0.6 10 3/mcL Normal 0.2-1.0 [facility] ([place]) Comment on above: Performed By: #### C BC, CORNELIA, ANURAG CYR, LIP, ANEU, GFR #### [address] [address] Monocytes/100 WBC (Bld) 6.9 % Normal 1.7-13.0 A [facility] ([place]) Comment on above: Performed By: #### C BC, CORNELIA, ANURAG CYR, LIP, ANEU, GFR #### [address] [address] Neutrophils/100 WBC (Bld) 63.9 % Normal 37.0-80.0 [facility] ([place]) Comment on above: Performed By: #### C BC, CORNELIA, KLARISSA, ANURAG, LIP, ANEU, GFR #### [address] [address] .GFRon 10-20-2022 GFR 100 ml/min/1.73sqm Normal [facility] ([place]) Comment on above: Result Comment: GFR [...] CORNELIA, ANURAG CYR, LIP, ANEU, GFR #### [address] [address] GFR Non- 83 ml/min/1.73sqm Normal [facility] ([place]) Comment on above: Result Comment: GFR [...] CMP, ADIFF, MDW, LIP, ANEU, GFR #### [address] [address] .MDWon 10-20-2022 Monocyte Distribution Width 16.96 Normal 0.00-20.00 [facility] ([place]) Comment on above: Result Comment: For ED adult patients suspected of sepsis, MDW<=20.0 does not rule out sepsis or risk of sepsis Performed By: #### C BC, CMP, ADIFF, MDW, LIP, ANEU, GFR #### [address] [address] .NEUABSon 10-20-2022 Neutrophil, Absolute 5.5 10 3/mcL Normal 2.9-6.2 [facility] ([place] Comment on above: Performed By: #### C BC, CMP, ADIFF, MDW, LIP, ANEU, GFR #### [place] [address] CBCon 10-20-2022 Erythrocyte distribution width (RBC) [Ratio] 12.9 % Normal 11.5-14.5 [facility] ([place]) Comment on above: Performed By: #### C BC, CMP, ADJAN, MDW, LIP, ANEU, GFR #### [address] [address] Hematocrit (Bld) [Volume fraction] 41.4 % Low 42.0-52.0 [facility] ([place]) Comment on above: Performed By: #### C BC, CMP, ADIFF, MDW, LIP, ANEU, GFR #### [address] [address] Hgb 14.1 G/dL Normal 14.0-18.0 [facility] ([place]) Comment on above: Performed By: #### C BC, CMP, ADIFF, MDW, LIP, ANEU, GFR #### [address] [address] MCH (RBC) [Entitic mass] 30.4 pg Normal 27.0-31.2 [facility] ([place]) Comment on above: Performed By: #### C BC, CMP, ADIFF, MDW, LIP, ANEU, GFR #### [place] [address] MCHC 34.0 G/dL Normal 31.8-35.4 [facility] ([place]) Comment on above: Performed By: #### C BC, CMP, ADIFF, MDW, LIP, ANEU, GFR #### [place] [address] MCV (RBC) [Entitic vol] 89.5 fL Normal 80.0-94.0 A [facility] ([place] Comment on above: Performed By: #### C BC, CMP, ADIFF, MDW, LIP, ANEU, GFR #### [address] [address] Platelet 288 10 3/mcL Normal 130-400 [facility] [place] Comment on above: Performed By: #### C BC, CMP, ADIFF, MDW, LIP, ANEU, GFR #### [address] [address] Platelet mean volume (Bld) [Entitic vol] 7.3 fL Low 7.4-10.4 [facility] [place] Comment on above: Performed By: #### C BC, CMP, ADIFF, MDW, LIP, ANEU, GFR #### [address] [address] RBC 4.62 10 6/mcL Normal 4.04-6.13 [facility] ([place]) Comment on above: Performed By: #### C BC, CMP, ADIFF, MDW, LIP, ANEU, GFR #### [address] [address] WBC 8.6 10 3/mcL Normal 4.6-10.8 [facility] [place] Comment on above: Performed By: #### C BC, CMP, ADIFF, MDW, LIP, ANEU, GFR #### [address] [address] CMPon 10-20-2022 Albumin Level 3.4 G/dL Low 3.5-5.0 [facility] ([place]) Comment on above: Performed By: #### C BC, CMP, ADIFF, MDW, LIP, ANEU, GFR #### [address] [address] Albumin/Globulin [Mass ratio] 1.1 {ratio} Normal 1.1-2.5 [facility] ([place]) Comment on above: Performed By: #### C BC, CMP, ADIFF, MDW, LIP, ANEU, GFR #### [address] [address] ALP [Catalytic activity/Vol] 47 U/L Normal 40-135 [facility] ([place]) Comment on above: Performed By: #### C BC, CMP, ADIFF, MDW, LIP, ANEU, GFR #### [address] [address] ALT [Catalytic activity/Vol] 21 U/L Normal 16-63 [facility] ([place]) Comment on above: Performed By: #### C BC, CMP, ADIFF, MDW, LIP, ANEU, GFR #### [address] [address] AST [Catalytic activity/Vol] 18 U/L Normal 10-40 [facility] ([place]) Comment on above: Performed By: #### C BC, CMP, ADIFF, MDW, LIP, ANEU, GFR #### [address] [address] Bili Total 0.2 mg/dL Normal 0.2-1.0 [facility] ([place]) Comment on above: Result Comment: Use of this assay is not recommended for patients undergoing treatment with eltrombopag due to the potential for falsely elevated results. Performed By: #### C BC, CMP, ADJAN, MDW, LIP, ANEU, GFR #### [address] [address] BUN/Creatinine Ratio 13 ratio Normal 7-27 [facility] ([place]) Comment on above: Performed By: #### C BC, CMP, ADJAN, MDW, LIP, ANEU, GFR #### [address] [address] Calcium [Mass/Vol] 8.8 mg/dL Normal 8.4-10.2 [facility] ([place]) Comment on above: Performed By: #### C BC, CMP, KLARISSA, MDW, LIP, ANEU, GFR #### [address] [address] Chloride [Moles/Vol] 105 mmol/L Normal 98-107 [facility] ([place]) Comment on above: Performed By: #### C BC, CMP, KLARISSA, MDW, LIP, ANEU, GFR #### [address] [address] CO2 [Moles/Vol] 27 mmol/L Normal 22-29 [facility] ([place]) Comment on above: Performed By: #### C BC, CMP, KLARISSA, MDW, LIP, ANEU, GFR #### [address] [address] Creatinine [Mass/Vol] 0.99 mg/dL Normal 0.70-1.30 [facility] ([place]) Comment on above: Performed By: #### C BC, CMP, KLARISSA, MDW, LIP, ANEU, GFR #### [address] [address] Electrolyte Balance 9.0 mEq/L Normal 4.0-15.0 [facility] ([place]) Comment on above: Performed By: #### C BC, CMP, ADIFF, MDW, LIP, ANEU, GFR #### [address] [address] Globulin 3.2 G/dL Normal [facility] ([place]) Comment on above: Performed By: #### C BC, CMP, KLARISSA, ANURAG, LIP, ANEU, GFR #### [address] [address] Glucose [Mass/Vol] 109 mg/dL High 70-105 [facility] ([place]) Comment on above: Performed By: #### C BC, CMP, ANURAG CYR, LIP, ANEU, GFR #### [address] [address] Potassium [Moles/Vol] 3.9 mmol/L Normal 3.5-5.1 [facility] ([place]) Comment on above: Performed By: #### C BC, CORNELIA, KLARISSA, ANURAG, LIP, ANEU, GFR #### [address] [address] Sodium [Moles/Vol] 141 mmol/L Normal 136-145 [facility] ([place]) Comment on above: Performed By: #### C LANI, CORNELIA, ANURAG CYR, LIP, ANEU, GFR #### [address] [address] Total Protein 6.6 G/dL Normal 6.4-8.2 [facility] ([place]) Comment on above: Performed By: #### C BC, CORNELIA, ANURAG CYR, LIP, ANEU, GFR #### [address] [address] Urea nitrogen [Mass/Vol] 13 mg/dL Normal 7-18 [facility] ([place]) Comment on above: Performed By: #### C BC, CORNELIA, ANURAG CYR, LIP, ANEU, GFR #### [address] [address] [address] ABD/PELVIS W/ IV CONTRAST ONLYon 10-20-2022 [...] 10/20/2022 6:25:29 PM Ordering Provider: LEDY Nelson [facility] ([place]) LACon 10-20-2022 Lactic Acid Lvl 1.2 mmol/L Normal 0.4-2.0 [facility]) Comment on above: Performed By: #### C BC, CMP, ADJAN, W, LIP, ANEU, GFR #### [address] [address] LIPon 10-20-2022 Lipase Level 43 U/L Normal 16-77 [facility] [place]) Comment on above: Performed By: #### C BC, CMP, ADIFF, MDW, LIP, ANEU, GFR #### [address] [place], [place] [address] LABORATORYOrdered By: Usha Tenorio on 08-28-2022 Basophil, [...] Invalid Interpretation Code 0.9 - 1.6 ratio ADM SS ALP [Catalytic activity/Vol] 43 U/L [...] Invalid Interpretation Code 70 - 110 mg/dL AH ADM SS Hematocrit (Bld) [Volume fraction] 42.5 [...] 0.2 E.U./dL Invalid Interpretation Code 0.2-1.0E.U. /dL Auto Urine SS LABORATORYOrdered By: SYSTEM SYSTEM [...] [Moles/Vol] 6 mmol/L 3 - 13 mmol/L [facility] [employer] Calcium [Mass/Vol] 9.0 mg/dL 8.4 - 10. 4 mg/dL [facility] [employer] Chloride [Moles/Vol] 105 mmol/L 98 - 10 7 mmol/L [facility] CO2 [Moles/Vol] 26 mmol/L 22 - 30 mmol/L [facility] Creatinine [Mass/Vol] 0.71 mg/dL 0.66 - 1.25 mg/dL [facility] [employer] GFR/1.73 sq M.predicted MDRD (S/P/Bld) [Vol rate/Area] - PINF [facility] Comment on above: Calculation based on the Chronic Kidney Disease Epidemiology Collaboration (CKD-EPI) equation refit without adjustment for race Glucose [Mass/Vol] 100 mg/dL 70 - 100 mg/dL [facility] Interpretation and review of laboratory results Normal [facility] Potassium [Moles/Vol] 4.3 mmol/L 3.5 - 5.1 mmol/L [facility] Sodium [Moles/Vol] 137 mmol/L 135 - 145 mmol/L [facility] Urea nitrogen [Mass/Vol] 14 mg/dL 9 - 20 mg/dL [facility] CBC W Auto Differential pane l (Bld)Ordered By: Michael Biggs on 06-19-2022 Basophils (Bld) [#/Vol] 0.1 10*3/uL 0.0 - 0.2 10*3/uL [facility] Basophils/100 WBC (Bld) 1.3 % 0.0 - 2.0 % [facility] Eosinophils (Bld) [#/Vol] 0.2 10*3/uL 0.0 - 0.5 10*3/uL [facility] Eosinophils/100 WBC (Bld) 2.4 % 1.0 - 6.0 % [facility] Erythrocyte distribution width (RBC) [Ratio] 14.3 % 11.5 - 14.5 % [facility] Hematocrit (Bld) [Volume fraction] 42.3 % 40.0 - 52.0 % [facility] Hemoglobin (Bld) [Mass/Vol] 14.5 g/dL 13.0 - 18.0 g/dL [facility] Interpretation and review of laboratory results Abnormal [facility] Lymphocytes (Bld) [#/Vol] 2.9 10*3/uL 1.0 - 4.3 10*3/uL [facility] Lymphocytes/100 WBC (Bld) 31.3 % 20.0 - 40.0 % [facility] MCH (RBC) [Entitic mass] 30.7 pg 26.0 - 34.0 pg [facility] MCHC (RBC) [Mass/Vol] 34.2 % 32.0 - 36.0 % [facility] MCV (RBC) [Entitic vol] 90.0 fL 80.0 - 98.0 fL [facility] Monocytes (Bld) [#/Vol] 0.6 10*3/uL 0.0 - 0.8 10*3/uL [facility] Monocytes/100 WBC (Bld) 6.3 % 2.0 - 10.0 % [facility] Neutrophils (Bld) [#/Vol] 5.4 10*3/uL 1.8 - 7.0 10*3/uL [facility] Neutrophils/100 WBC (Bld) 58.7 % 40.0 - 80.0 % [facility] Nucleated RBC/100 WBC (Bld) [Ratio] 0.0 % [facility] Platelet mean volume (Bld) [Entitic vol] 7.0 fL Low 7.4 - 12.4 fL [facility] Platelets (Bld) [#/Vol] 296 10*3/uL 140 - 440 10*3/uL [facility] RBC (Bld) [#/Vol] 4.70 10*6/uL 4.40 - 5.9 0 10*6/uL [facility] WBC (Bld) [#/Vol] 9.2 10*3/uL 3.6 - 10.7 10*3/uL [facility] - Drug toxicology on 06-19-2022 carBAMazepine [Mass/Vol] 14.5 ug/mL High 4.0 - 12.0 ug/mL [facility] Panel Informationon 06-19 Interpretation and review of laboratory results Abnormal [facility] EMERGENCY REPORTon 2 EMERGENCY REPORT [facility] EMERGENCY ROOM REPORT NAME ACCOUNT SEX AGE ADMIT DISCHARGE PT MED. 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 He works at an [employer] business. He has done that for sometime. [...] sinus mechanism without any evidence of acute MT or ischemia. Rate was 111. Emergency room [...] Patrick Vigil DO 05/23/22 07:02 JOB #: [id number] Transcribed By: am 05/23/22 13:53 Electronically signed by: E-SIGN PATRICK VIGIL DO 06/12/22 05:26 Page 2 of 2 PATRICK KOROMA Emergency Room Report A Normal [facility] CT ABDOMEN PELVIS WITH IV CO BLAIR GALARZAon 06-10-2022 CT ABDOMEN PELVIS WITH IV CONTRAST [...] thickening. Please correlate with urinalysis for infection. [facility] Workstation ID: [id number] Dictated by: ROSAURA ROBLES on FriJun 10, 2022 2:32:31 AM EST Transcribed by: CHARLIE JIMENEZ on FriJun 10, 2022 2:35:27 AM EST Finalized by: ROSAURA ROBLES on FriJun 10, 2022 2:46:42 AM EST Normal [facility] Comment on above: Order Comment: Injur [...] origins. 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 No large vessel occlusion is seen. 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 OTHER: No pathologic intracranial enhancement is seen. IMPRESSION: 1. No acute intracranial abnormality. No hemorrhage or mass effect. 2. Intracranial extracranial vessels demonstrate no stenosis, thrombus, dissection, aneurysm, or large vessel occlusion. 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 3. Acute on chronic haas sinusitis in [...] FriJun 06, 2022 12:50:41 AM EST Normal [facility] Comment on above: Order Comment: Injur [...] CRP 2.80 mg/dl High 0.00 - 0.90 [facility] Comment on above: Performed By: #### 2 60502 #### [facility],[address] [place] [address] CBC + DIFFon 05-23-2022 Baso # 0.10 x10EE3/UL Normal 0.00 - 0.10 [facility] Comment on above: Performed By: #### 2 27626 #### [facility],[address] [place] [address] 65531 Basophils/100 WBC (Bld) 1.1 % Normal 0.0 - 2.0 [facility] Comment on above: Performed By: #### 2 15094 #### [facility],[address] [place] [address] 70292 CBC + DIFF Normal [facility] Comment on above: Result Comment: CBC- COMPLETE BLOOD COUNT Performed By: #### 2 21396 #### [facility],[address] [place] [address] 63812 EO # 0.20 x10EE3/UL Normal 0.00 - 0.50 [facility] Comment on above: Performed By: #### 2 63043 #### [facility],[address] [place] [address] 02240 Eosinophils/100 WBC (Bld) 1.2 % Normal 0.0 - 7.0 [facility] Comment on above: Performed By: #### 2 26824 #### [facility],[address] [place] [address] 45266 Erythrocyte distribution width (RBC) [Ratio] 13.4 % Normal 12.0 - 15.6 [facility] Comment on above: Performed By: #### 2 20655 #### [facility],[address] [place] [address] Hematocrit (Bld) [Volume fraction] 44.7 % Normal 40.0 - 52.0 [facility] Comment on above: Performed By: #### 2 89107 #### [facility],[address] [place] [address] 44776 Hemoglobin (Bld) [Mass/Vol] 15.0 g/dL Normal 13.0 - 17.5 [facility] Comment on above: Performed By: #### 2 11977 #### [facility],[address] [place] [address] 82291 Lymph # 2.80 x10EE3/UL Normal 0.80 - 2.80 [facility] Comment on above: Performed By: #### 2 20557 #### [facility],[address] [place] [address] 67978 Lymphocytes/100 WBC (Bld) 19.8 % Low 20.0 - 45.0 [facility] Comment on above: Performed By: #### 2 33335 #### [facility],[address] [place] [address] 71008 MANUAL DIFF N/A Normal [facility] Comment on above: Performed By: #### 2 02842 #### [facility],[address] [place] [address] 97879 MCH (RBC) [Entitic mass] 30 pg Normal 27 - 33 [facility] Comment on above: Performed By: #### 2 98737 #### [facility],[address] [place] [address] 04952 MCHC 34 X10 3 Normal 32 - 36 [facility] Comment on above: Performed By: #### 2 13899 #### [facility],[address] [place] [address] 19571 MCV (RBC) [Entitic vol] 90 fL Normal 81 - 98 [facility] Comment on above: Performed By: #### 2 33837 #### [facility],[address] [place] [address] [place] # 1.00 x10EE3/UL Normal 0.20 - 1.00 [facility] Comment on above: Performed By: #### 2 84087 #### [facility],[address] [place] [address] 09471 MONOS % 6.8 % Normal 0.0 - 10.0 [facility] Comment on above: Performed By: #### 2 24608 #### [facility],[address] [place] [address] 17115 Morphology Alonso (Bld) [Interp] N/A Normal [facility] Comment on above: Result Comment: {CD] Performed By: #### 2 24536 #### [facility],[address] [place] [address] 99904 Neut # 10.00 x10EE3/UL High 1.50 - 7.10 [facility] Comment on above: Performed By: #### 2 98995 #### [facility],[address] [place] [address] 19690 Neutrophils/100 WBC (Bld) 71.1 % Normal 46.0 - 76.0 [facility] Comment on above: Performed By: #### 2 01875 #### [facility],[address] [place] [address] 43646 PLATELET 313 x10EE3/UL Normal 150 - 450 [facility] Comment on above: Performed By: #### 2 43416 #### [facility],[address] [place] [address] 29445 Platelet mean volume (Bld) [Entitic vol] 7.7 fL Normal 6.4 - 10.5 [facility] Comment on above: Result Comment: AUTO MATED DIFFERENTIAL Performed By: #### 2 86416 #### [facility],[address] [place] [address] 36389 RBC 4.95 x 10EE6/UL Normal 4.50 - 6.00 [facility] Comment on above: Performed By: #### 2 26484 #### [facility],[address] [place] [address] 26542 WBC 14.0 x 10EE3/UL High 4.5 - 10.8 [facility] Comment on above: Performed By: #### 2 26925 #### [facility],[address] [place] [address] 88124 CMP with eGFRon 05-23-2022 AGE 42 years Normal [facility] Comment on above: Performed By: #### 2 59270 #### [facility],[address] [place] [address] 03789 Albumin [Mass/Vol] 3.5 g/dL Normal 3.4 - 5.0 [facility] Comment on above: Performed By: #### 2 75701 #### [facility],[address] [place] [address] 63142 Albumin/Globulin [Mass ratio] 0.9 {ratio} Normal 0.9 - 1.6 [facility] Comment on above: Performed By: #### 2 50140 #### [facility],[address] [place] [address] 78873 ALK PHOS 44 U/L Low 46 - 116 [facility] Comment on above: Performed By: #### 2 07959 #### [facility],[address] [place] [address] 23354 ALT [Catalytic activity/Vol] 21 U/L Normal 16 - 63 [facility] Comment on above: Performed By: #### 2 01307 #### [facility],[address] [place] [address] 54322 Anion gap [Moles/Vol] 10 mmol/L Normal 10 - 20 [facility] Comment on above: Performed By: #### 2 64261 #### [facility],[address] [place], [place] [address] AST [Catalytic activity/Vol] 16 U/L Normal 15 - 37 [facility] Comment on above: Performed By: #### 2 99382 #### [facility],[address] [place], [place] [address] B/C RATIO 11 ratio Normal 0 - 30 [facility] Comment on above: Performed By: #### 2 44315 #### [facility],[address] [place] [address] 69284 Bilirubin [Mass/Vol] 0.2 mg/dL Normal 0.2 - 1.0 [facility] Comment on above: Performed By: #### 2 43926 #### [facility],[address] [place] [address] 08525 Calcium [Mass/Vol] 9.0 mg/dL Normal 8.5 - 10.1 [facility] Comment on above: Performed By: #### 2 96764 #### [facility],[address] [place] [address] 94511 Chloride [Moles/Vol] 101 mmol/L Normal 98 - 107 [facility] Comment on above: Performed By: #### 2 48398 #### [facility],[address] [place] [address] 98794 CMP with eGFR Normal [facility] Comment on above: Result Comment: COMP REHENSIVE METABOLIC PANEL Performed By: #### 2 33874 #### [facility],[address] [place] [address] 84195 CO2 [Moles/Vol] 30.2 mmol/L Normal 21.0 - 32.0 [facility] Comment on above: Performed By: #### 2 81139 #### [facility],[address] [place] [address] 52997 Creatinine [Mass/Vol] 0.91 mg/dL Normal 0.70 - 1.30 [facility] Comment on above: Performed By: #### 2 50426 #### [facility],[address] [place] [address] GFR/1.73 sq M.predicted among non-blacks MDRD (S/P/Bld) [Vol rate/Area] mL/min/{1.73_m2} Normal 60 - 999 [facility] Comment on above: Performed By: #### 2 38578 #### [facility],[address] [place], [place] [address] Result Comment: ACCO RDING TO THE NATIONAL KIDNEY DISEASE EDUCATION PROGRAM(NKDE), A NORMAL eGFR IS A VALUE GREATER THAN OR EQUAL TO 60 ML/MIN/1.73 SQ METERS. CHRONIC KIDNEY DISEASE: <60mL/MIN/1.73 SQ METERS KIDNEY FAILURE: <15mL/MIN/1.73 SQ METERS THIS TEST SHOULD ONLY BE USED FOR PATIENTS 18 YEARS OF AGE AND OLDER. Globulin (S) [Mass/Vol] 3.7 g/dL Normal 1.5 - 3.8 [facility] Comment on above: Performed By: #### 2 72215 #### [facility],[address] [place] [address] 19935 Glucose [Mass/Vol] 104 mg/dL Normal 74 - 106 [facility] Comment on above: Performed By: #### 2 01375 #### [facility],[address] [place] [address] 73449 Potassium [Moles/Vol] 3.8 mmol/L Normal 3.5 - 5.1 [facility] Comment on above: Performed By: #### 2 46849 #### [facility],[address] [place] [address] 83495 Protein [Mass/Vol] 7.2 g/dL Normal 6.4 - 8.2 [facility] Comment on above: Performed By: #### 2 73935 #### [facility],[address] [place] [address] 97554 Sodium [Moles/Vol] 137 mmol/L Normal 136 - 145 [facility] Comment on above: Performed By: #### 2 98210 #### [facility],[address] [place] [address] 48573 Urea nitrogen [Mass/Vol] 10 mg/dL Normal 7 - 18 [facility] Comment on above: Performed By: #### 2 76731 #### [facility],[address] [place] [address] BRAIN W/O CONTRASTon 12-0 CT BRAIN W/O CONTRAST [place] [address] Patient: ANAMARIA KOROMALENORA Felipe Phone#: : [phone] Age: 42 Gender: M Pt. Type: ER Account: [id number] Location: 2 Ordering: DR. PATRICK VIGIL Exam Date: 05/22/2022/23:10 Family Phys: Charge Code: 233503 Physician: [place] Order #: [id number] Dose#: [id number] PROCEDURE: CT BRAIN WITHOUT CONTRAST COMPARISON: [facility], CT, BRAIN W/O CON, 12/03/2011, 2:09. [...] Waters MD on 05/23/2022 at 14:41 Normal [facility] SEDRATEon 05-23-2022 SEDRATE 13 mm/hr Normal 0 - 20 [facility] Comment on above: Performed By: #### 2 31896 #### [facility],[address] [place] [address] TROPONIN I, HIGH SENSITIVITY on 05-23-2022 HS TROPONIN 4.4 pg/mL Normal 0.0 - 76.2 [facility] Comment on above: Performed By: #### 2 82276 #### [facility],[address] [place], [place] [address] XR SHOULDER RIGHT (MIN 2 VIE WS)on [...] Rosas Silva MD 04/25/22 Final result Normal [facility] Comment on above: Order Comment: Reaso n for exam:->ac joint deformity/pain No acute abnormality . [facility] EXAMINATION: THREE XRAY VIEWS OF THE RIGHT SHOULDER 04/25/2022 5:40 pm COMPARISON: None. HISTORY: ORDERING SYSTEM PROVIDED HISTORY: ac joint deformity/pain TECHNOLOGIST PROVIDED HISTORY: Reason for exam:->ac joint deformity/pain FINDINGS: Glenohumeral joint is normally aligned. No evidence of acute fracture or dislocation. No abnormal periarticular calcifications. The AC joint is unremarkable in appearance. Visualized lung is unremarkable. [facility] Rosas Silva MD - [...] lung is unremarkable. IMPRESSION: No acute abnormality. [employer] Phone: Radiology Study observation (narrative) [employer] Phone: XR SHOULDER RIGHT (MIN 2 VIE WS)Ordered By: Rosas Silva on 04-25-2022 [employer] Phone: XR WRIST RIGHT (MIN 3 VIEWS) [...] Abdifatah Child DO 04/03/22 Final result Normal [facility] Comment on above: Order Comment: Reaso n for exam:->crush injury No acute osseous abnormality involving the right wrist. [facility] EXAMINATION: XRAY VIEWS OF THE RIGHT WRIST 04/03/2022 4:10 pm COMPARISON: None. HISTORY: ORDERING SYSTEM PROVIDED HISTORY: crush injury TECHNOLOGIST PROVIDED HISTORY: Reason for exam:->crush injury FINDINGS: No fracture or dislocation involving the right wrist. Normal carpal bone alignment. No radiopaque foreign body. [facility] Abdifatah Acevedo, DO - 04/03/2022 EXAMINATION: XRAY VIEWS OF THE RIGHT WRIST 04/03/2022 4:10 pm COMPARISON: None. HISTORY: ORDERING SYSTEM PROVIDED HISTORY: crush injury TECHNOLOGIST PROVIDED HISTORY: Reason for exam:->crush injury FINDINGS: No fracture or dislocation involving the right wrist. Normal carpal bone alignment. No radiopaque foreign body. IMPRESSION: No acute osseous abnormality involving the right wrist. [employer] Phone: Radiology Study observation (narrative) [employer] Phone: XR WRIST RIGHT (MIN 3 VIEWS) Ordered By: Abdifatah Child on 04-03-2022 [employer] Phone: CT CERVICAL SPINE WO VINCE Ton 03-08-2022 [id number] Tom[facility] ACCESSION EXAM DATE/TIME PROCEDURE ORDERING PROVIDER [id number] 03/08/2022 01:[address] Spine Cervical w/o [id number] -DARRION, GILES Contrast CPT code 33688 Reason For Exam (CT Spine Cervical w/o [...] Tomography ACCESSION EXAM DATE/TIME PROCEDURE ORDERING PROVIDER [id number] 03/08/2022 01:[address] Spine Cervical w/o [id number] -DARRION, GILES Contrast CPT code 33214 Reason For Exam (CT Spine Cervical w/o [...] KEVIN Transcribed Date and Time: 03/08/2022 1:50 NIKI Work Phone: [facility] Work Phone: CT HEAD WO CONTRASTon 2021 Patient Name: PATRICK KOROMA Computed Tomography ACCESSION EXAM DATE/TIME PROCEDURE ORDERING PROVIDER [id number] 03/08/2022 01:[address] Head or Brain w/o [id number] -DARRION, GILES Contrast CPT code 48403 Reason For Exam (CT Head or Brain [...] MD - 03/08/2022 [facility]: [id number] Computed Tomography ACCESSION EXAM DATE/TIME PROCEDURE ORDERING PROVIDER [id number] 03/08/2022 01:[address] Head or Brain w/o [id number] -DARRION, GILES Contrast CPT code 42668 Reason For Exam (CT Head or Brain [...] KEVIN Transcribed Date and Time: 03/08/2022 1:48 NIK[employer] Work Phone: CT HEAD WO CONTRASTOrdered B y: Shankar Haas on 03-08-[address] [facility] Work Phone: CT Head or Brain w/o Contras ton 03-08-2022 CT Head or Brain w/o Contrast Patient Name: PATRICK KOROMA Computed Tomography ACCESSION EXAM DATE/TIME PROCEDURE ORDERING PROVIDER [id number] 03/08/2022 01:[address] Head or Brain w/o [id number] -DARRION, GILES Contrast CPT code 50401 Reason For Exam (CT Head or Brain [...] Transcribed Date and Time: 03/08/2022 1:48 [address] [facility] CT Spine Cervical w/o Contra ston 03-08-2022 CT Spine Cervical w/o Contrast Patient Name: PATRICK KOROMA Comput[employer] Tom[employer] ACCESSION EXAM DATE/TIME PROCEDURE ORDERING PROVIDER [id number] 03/08/2022 01:[address] Spine Cervical w/o [id number] -DARRION, GILES Contrast CPT code 17127 Reason For Exam (CT Spine Cervical w/o [...] Transcribed Date and Time: 03/08/2022 1:50 Normal [facility] ED Provider Noteon ED Provider Note [facility] ED EMERGENCY DEPARTMENT ENCOUNTER Pt Name: [...] plan and expressed understanding. 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 Normal [facility] No Panel Informationon 03-08 Radiology Study observation (narrative) [facility] Work Phone: Absolute lymphocyte counton 01-01-2022 Lymphocytes Auto (Unsp spec) [#/Vol] 2.19 10*3/uL 0.83-4.51 [facility] Work Phone: Basophil percentageon 2021 Basophils/100 WBC (Bld) 0.5 % 0-1 [facility] Work Phone: Bilirubin [Mass/Vol] 0.20 mg/dL 0.20-1.00 [facility] Work Phone: Comment on above: For patients on eltr ombopag therapy, use of Dimension Martha TBIL is not recommended. Chloride [Moles/Vol] 111 mmol/L 98-107 [facility] Work Phone: Eosinophils/100 WBC (Bld) 1.6 % 0-5 [facility] Work Phone: Glucose [Mass/Vol] 103 mg/dL 74-106 [facility] Work Phone: Comment on above: Fasting Glucose resu lt from 100 to 125 mg/dL suggests IMPAIRED HOMEOSTASIS per A.D.A. criteria. Neutrophils (Bld) [#/Vol] 7.1 10*3/uL 2.0-7.7 [facility] Work Phone: Neutrophils/100 WBC (Bld) 70.0 % 47-70 [facility] Work Phone: Potassium [Moles/Vol] 3.9 mmol/L 3.5-5.1 [facility] Work Phone: Protein [Mass/Vol] 7.1 g/dL 6.4-8.2 [facility] Work Phone: Sodium [Moles/Vol] 140 mmol/L 136-145 [facility] Work Phone: WBC (Bld) [#/Vol] 10.2 10*3/uL 4.4-11.0 [facility] Work Phone: Blood erythrocytes count (nu mber/volume)on 01-01-2022 RBC (Bld) [#/Vol] 4.65 10*6/uL 4.6-6.2 [facility] Work Phone: Blood hemoglobin measurement (mass/volume)on 01-01-2022 Hemoglobin (Bld) [Mass/Vol] 14.1 g/dL 13.0-16.5 [facility] Work Phone: Blood lymphocytes/100 leukoc yteson 01-01-2022 Lymphocytes/100 WBC (Bld) 21.6 % 19-41 [facility] Work Phone: Blood monocytes/100 leukocyt eson 01-01-2022 Monocytes/100 WBC (Bld) 5.8 % 0-10 [facility] Work Phone: Blood platelet mean volumeon 01-01-2022 Platelet mean volume (Bld) [Entitic vol] 9.2 fL 6.2-12.0 [facility] Work Phone: Determination of erythrocyte mean corpuscular volume (MCV)on 01-01-2022 MCV (RBC) [Entitic vol] 92.7 fL 80-94 [facility] Work Phone: Direct bilirubinon 2 Bilirubin.direct [Mass/Vol] 0.09 mg/dL 0.00-0.30 [facility] Work Phone: Hematocrit Auto (Bld) [Volum e fraction]on 01-01-2022 Hematocrit (Bld) [Volume fraction] 43.1 % 40-54 [facility] Work Phone: INR in Blood by Coagulation assayon 01-01-2022 INR Coag (Bld) [Relative time] 0.9 {INR} [facility] Work Phone: Laboratory - Chemistry and C hemistry - challengeon 01-01-2022 ALP [Catalytic activity/Vol] 43 U/L 45-117 [facility] Work Phone: ALT [Catalytic activity/Vol] 27 U/L 16-61 [facility] Work Phone: CO2 [Moles/Vol] 25.0 mmol/L 21.0-32.0 [facility] Work Phone: Globulin (S) [Mass/Vol] 3.8 g/dL 2.2-4.2 [facility] Work Phone: Urea nitrogen/Creatinine [Mass ratio] 9.2 mg/mg 10-20 [facility] Work Phone: Laboratory - Coagulationon 0 01-01-2022 aPTT Coag (Bld) [Time] 25.8 s 24.1-36.2 [facility] Work Phone: PT Coag (PPP) [Time] 11.9 s 11.7-14.9 [facility] Work Phone: Laboratory - Hematology and Cell countson 01-01-2022 Erythrocyte distribution width (RBC) [Entitic vol] 43.3 fL 35.1-43.9 [facility] Work Phone: Erythrocyte distribution width (RBC) [Ratio] 12.7 % 11.6-14.6 [facility] Work Phone: Immature granulocytes/100 WBC (Bld) 0.500 % 0.0-0.9 [facility] Work Phone: Comment on above: IG% - Immature Granu locytes (promyelocytes, myelocytes and metamyelocytes) > 1% indicates that a LEFT SHIFT is Present. MCH (RBC) [Entitic mass] 30.3 pg 27.0-32.0 [facility] Work Phone: Nucleated RBC/100 WBC (Bld) [Ratio] 0 % 0-5 [facility] Work Phone: MCHC Auto (RBC) [Mass/Vol]on 01-01-2022 MCHC (RBC) [Mass/Vol] 32.7 g/dL 32-36 [facility] Work Phone: No Panel Informationon 01-01 Estimated Creatinine Clearance Calc 125.00 ml/min [facility] Work Phone: Estimated GFR (MDRD) Amer 123 mL/min >60 [facility] Work Phone: Comment on above: GFR Calc Estimated GFR (MDRD) Non-Af Amer 101 mL/min >60 [facility] Work Phone: Comment on above: Non- GFR Calc Platelets bldon 01-01-2022 Platelets (Bld) [#/Vol] 328 10*3/uL 150-450 [facility] Work Phone: Serum or plasma albumin za urement (mass/volume)on 01-01-2022 Albumin [Mass/Vol] 3.3 g/dL 3.2-5.0 [facility] Work Phone: Serum or plasma calcium za urement (mass/volume)on 01-01-2022 Calcium [Mass/Vol] 9.1 mg/dL 8.5-10.1 [facility] Work Phone: Serum or plasma creatinine m easurement (mass/volume)on 01-01-2022 Creatinine [Mass/Vol] 0.87 mg/dL 0.70-1.30 [facility] Work Phone: Comment on above: The validity of the calculated GFR & GFRAA in patients over 70 years has not been determined. Clinical correlation is essential. Serum or plasma urea nitroge n measurement (mass/volume)on 01-01-2022 Urea nitrogen [Mass/Vol] 8 mg/dL 7-18 [facility] Work Phone: Thin prep Papanicolaou smear with manual screeningon 01-01-2022 Thin prep Papanicolaou smear with manual screening 22 U/L 15-37 [facility] Work Phone: Thin prep Papanicolaou smear with manual screening 4 5-15 [facility] Work Phone: LABORATORYOrdered By: Sara Echeverria [...] 11-15 Calcium [Mass/Vol] 8.8 mg/dL Normal 8.4-10.4 [facility] Comment on above: Performed By: #### L ACT3, MG3, BMP3, HEMDF #### [facility] [address] [place] [address] Glucose [Mass/Vol] 99 mg/dL Normal 70-100 [facility] Comment on above: Performed By: #### L ACT3, MG3, BMP3, HEMDF #### [facility] [address] [place] [address] Anion gap [Moles/Vol] 6 mmol/L Normal 3-13 [facility] Comment on above: Performed By: #### L ACT3, MG3, BMP3, HEMDF #### [facility] [address] [place] [address] CO2 [Moles/Vol] 27 mmol/L Normal 22-30 [facility] Comment on above: Performed By: #### L ACT3, MG3, BMP3, HEMDF #### [facility] [address] [place] [address] Creatinine [Mass/Vol] 0.69 mg/dL Normal 0.52-1.25 [facility] Comment on above: Performed By: #### L ACT3, MG3, BMP3, HEMDF #### [facility] [address] [place] [address] eGFR OTHER > 90.0 Normal >60 [facility] Comment on above: Result Comment: KDIG [...] #### L ACT3, MG3, BMP3, HEMDF #### [facility] [address] [place] [address] GFR/1.73 sq M.predicted among blacks MDRD (S/P/Bld) [Vol rate/Area] mL/min/{1.73_m2} Normal >60 [facility] Comment on above: Performed By: #### L ACT3, MG3, BMP3, HEMDF #### [facility] [address] [place] [address] Urea nitrogen [Mass/Vol] 5 mg/dL Low 7-17 [facility] Comment on above: Performed By: #### L ACT3, MG3, BMP3, HEMDF #### [facility] [address] [place] [address] Chloride [Moles/Vol] 105 mmol/L Normal 98-107 [facility] Comment on above: Performed By: #### L ACT3, MG3, BMP3, HEMDF #### [facility] [address] [place] [address] Potassium [Moles/Vol] 3.8 mmol/L Normal 3.5-5.1 [facility] Comment on above: Performed By: #### L ACT3, MG3, BMP3, HEMDF #### [facility] [address] [place] [address] Sodium [Moles/Vol] 138 mmol/L Normal 135-145 [facility] Comment on above: Performed By: #### L ACT3, MG3, BMP3, HEMDF #### [facility] [address] [place] [address] CT Abdomen/Pelvis w/ Contras ton 12-05-2021 CT Abdomen/Pelvis w/ Contrast Patient Name: PATRICK KOROMA Computed Tomography ACCESSION EXAM DATE/TIME PROCEDURE ORDERING PROVIDER [id number] 12/05/2021 14:[address] Abdomen/Pelvis w/ [place] [id number] -JACQUIE, Contrast (IV Onl SUZIE CPT code 78579 Q9967 Reason For Exam (CT Abdomen/Pelvis w/ [...] Transcribed Date and Time: 12/05/2021 2:32 Normal [facility] Hemogram w/ Autodiffon 12-05 Abs Baso Cnt 0.1 10*3/uL Normal 0.0-0.2 [facility] Comment on above: Performed By: #### L ACT3, MG3, BMP3, HEMDF #### [facility] [address] [place] [address] Abs Neutrophile Cnt 7.3 10*3/uL High 1.8-7.0 [facility] Comment on above: Performed By: #### L ACT3, MG3, BMP3, HEMDF #### [facility] [address] [place] [address] Basophils/100 WBC (Bld) 0.7 % Normal 0.0-2.0 [facility] Comment on above: Performed By: #### L ACT3, MG3, BMP3, HEMDF #### [address] [address] Eosinophils (Bld) [#/Vol] 0.2 10*3/uL Normal 0.0-0.5 [facility] Comment on above: Performed By: #### L ACT3, MG3, BMP3, HEMDF #### [address] [address] Eosinophils/100 WBC (Bld) 2.0 % Normal 1.0-6.0 [facility] Comment on above: Performed By: #### L ACT3, MG3, BMP3, HEMDF #### [address] [address] Erythrocyte distribution width (RBC) [Ratio] 13.1 % Normal 11.5-14.5 [facility] Comment on above: Performed By: #### L ACT3, MG3, BMP3, HEMDF #### [address] [address] Granulocytes/100 WBC (Bld) 76.6 % Normal 40.0-80.0 [facility] Comment on above: Performed By: #### L ACT3, MG3, BMP3, HEMDF #### [address] [address] Hematocrit (Bld) [Volume fraction] 39.4 % Low 40.0-52.0 [facility] Comment on above: Performed By: #### L ACT3, MG3, BMP3, HEMDF #### [address] [address] Hemoglobin (Bld) [Mass/Vol] 13.6 g/dL Normal 13.0-18.0 [facility] Comment on above: Performed By: #### L ACT3, MG3, BMP3, HEMDF #### [address] [address] Lymphocytes (Bld) [#/Vol] 1.3 10*3/uL Normal 1.0-4.3 [facility] Comment on above: Performed By: #### L ACT3, MG3, BMP3, HEMDF #### [address] [place] [address] [place] [address] Lymphocytes/100 WBC (Bld) 13.9 % Low 20.0-40.0 [facility] Comment on above: Performed By: #### L ACT3, MG3, BMP3, HEMDF #### [address] [address] MCH (RBC) [Entitic mass] 31.6 pg Normal 26.0-34.0 [facility] Comment on above: Performed By: #### L ACT3, MG3, BMP3, HEMDF #### [address] [address] MCHC 34.5 % Normal 32.0-36.0 [facility] Comment on above: Performed By: #### L ACT3, MG3, BMP3, HEMDF #### [address] [address] MCV (RBC) [Entitic vol] 91.7 fL Normal 80.0-98.0 [facility] Comment on above: Performed By: #### L ACT3, MG3, BMP3, HEMDF #### [address] [address] Monocytes (Bld) [#/Vol] 0.7 10*3/uL Normal 0.0-0.8 [facility] Comment on above: Performed By: #### L ACT3, MG3, BMP3, HEMDF #### [address] [address] Monocytes/100 WBC (Bld) 6.8 % Normal 2.0-10.0 [facility] Comment on above: Performed By: #### L ACT3, MG3, BMP3, HEMDF #### [address] [address] Platelet mean volume (Bld) [Entitic vol] 7.4 fL Normal 7.4-12.4 [facility] Comment on above: Result Comment: MPV is a calculated measurement using platelet volume ratio. Performed By: #### L ACT3, MG3, BMP3, HEMDF #### [address] [address] Platelets (Bld) [#/Vol] 389 10*3/uL Normal 140-440 [facility] Comment on above: Performed By: #### L ACT3, MG3, BMP3, HEMDF #### [address] [address] RBC (Bld) [#/Vol] 4.30 10*6/uL Low 4.40-5.90 [facility] Comment on above: Performed By: #### L ACT3, MG3, BMP3, HEMDF #### [address] [address] WBC (Bld) [#/Vol] 9.6 10*3/uL Normal 3.6-10.7 [facility] Comment on above: Performed By: #### L ACT3, MG3, BMP3, HEMDF #### [address] [address] Lactic Acidon 12-05-2021 Lactate [Moles/Vol] 1.1 mmol/L Normal 0.7-2.0 [facility] Comment on above: Performed By: #### L ACT3, MG3, BMP3, HEMDF #### [address] [address] Magnesiumon 12-05-2021 Magnesium [Mass/Vol] 2.2 mg/dL Normal 1.6-2.3 [facility] Comment on above: Performed By: #### L ACT3, MG3, BMP3, HEMDF #### [address] [address] LABORATORYOrdered By: Sara Echeverria on 11-30-2021 Basophil, [...] Summary Documentson 12-29-2016 Patient Summary Documents Normal [facility] Emergency Room Note on 12-24-2016 [place] [facility] Note Normal [facility] Patient Summary Documentson 12-23-2016 Patient Summary Documents Normal [facility] XR WRIST COMPLETE RIGHTon XR WRIST COMPLETE [...] PM Sign Date: 12/23/2016 4:46:15 PM Normal [facility] Emergency Room Note on 12-16-2016 [place] [facility] Note Normal [facility] Patient Summary Documentson 12-16-2016 Patient Summary Documents Normal [facility] Vital Signs Date Time Vital Sign Value Performing Clinician Faci lity 02-18-2025 00:05-0400 Body temperature 98.7 [degF] Viola Starkey OXYGEN THERAPY TEACHER-C Work Phone: [facility] 02-18-2025 00:05-0400 Diastolic blood pressure 69 mm[Hg] Viola Starkey OXYGEN THERAPY TEACHER-C Work Phone: [facility] 02-18-2025 00:05-0400 Heart rate 90 /min Viola Starkey OXYGEN THERAPY TEACHER-C Work Phone: [facility] 02-18-2025 00:05-0400 Respiratory rate 18 /min Viola Starkey OXYGEN THERAPY TEACHER-C Work Phone: [facility] 02-18-2025 00:05-0400 SaO2% (BldA) [Mass fraction] 96 % Viola Starkey OXYGEN THERAPY TEACHER-C Work Phone: [facility] 02-18-2025 00:05-0400 Systolic blood pressure 136 mm[Hg] Viola Starkey OXYGEN THERAPY TEACHER-C Work Phone: [facility] 02-17-2025 21:21-0400 Body height 187.96 cm Viola Starkey OXYGEN THERAPY TEACHER-C Work Phone: [facility] 02-17-2025 21:21-0400 Body mass index (BMI) [Ratio] 43.9 kg/m2 Viola Starkey OXYGEN THERAPY TEACHER-C Work Phone: [facility] 02-17-2025 21:21-0400 Body weight 155.12 kg Viola Starkey OXYGEN THERAPY TEACHER-C Work Phone: [facility] 01-26-2025 00:05-0400 Body temperature 98 [degF] Viola Starkey OXYGEN THERAPY TEACHER-C Work Phone: [facility] 01-26-2025 00:05-0400 Diastolic blood pressure 90 mm[Hg] Viola Starkey OXYGEN THERAPY TEACHER-C Work Phone: [facility] 01-26-2025 00:05-0400 Heart rate 78 /min Viola Starkey OXYGEN THERAPY TEACHER-C Work Phone: [facility] 01-26-2025 00:05-0400 Respiratory rate 16 /min Viola Starkey OXYGEN THERAPY TEACHER-C Work Phone: [facility] 01-26-2025 00:05-0400 SaO2% (BldA) [Mass fraction] 97 % Viola Starkey OXYGEN THERAPY TEACHER-C Work Phone: [facility] 01-26-2025 00:05-0400 Systolic blood pressure 140 mm[Hg] Viola Starkey OXYGEN THERAPY TEACHER-C Work Phone: [facility] 01-25-2025 22:23-0400 Body height 187.96 cm Viola Starkey OXYGEN THERAPY TEACHER-C Work Phone: [facility] 01-25-2025 22:23-0400 Body mass index (BMI) [Ratio] 43.9 kg/m2 Viola Starkey OXYGEN THERAPY TEACHER-C Work Phone: [facility] 01-25-2025 22:23-0400 Body weight 155.12 kg Viola Starkey OXYGEN THERAPY TEACHER-C Work Phone: [facility] 12-29-2024 22:56-0400 Body temperature 98.6 [degF] Viola Starkey OXYGEN THERAPY TEACHER-C Work Phone: [facility] 12-29-2024 22:56-0400 Diastolic blood pressure 94 mm[Hg] Viola Starkey OXYGEN THERAPY TEACHER-C Work Phone: [facility] 12-29-2024 22:56-0400 Heart rate 79 /min Viola Starkey OXYGEN THERAPY TEACHER-C Work Phone: [facility] 12-29-2024 22:56-0400 Respiratory rate 18 /min Viola Starkey OXYGEN THERAPY TEACHER-C Work Phone: [facility] 12-29-2024 22:56-0400 SaO2% (BldA) [Mass fraction] 98 % Viola Lalito OXYGEN THERAPY TEACHER-C Work Phone: [facility] 12-29-2024 22:56-0400 Systolic blood pressure 159 mm[Hg] Viola Starkey OXYGEN THERAPY TEACHER-C Work Phone: [facility] 12-29-2024 21:21-0400 Body height 187.96 cm Viola Starkey OXYGEN THERAPY TEACHER-C Work Phone: [facility] 12-29-2024 21:21-0400 Body mass index (BMI) [Ratio] 44.1 kg/m2 Viola Starkey OXYGEN THERAPY TEACHER-C Work Phone: [facility] 12-29-2024 21:21-0400 Body weight 156.03 kg Viola Starkey OXYGEN THERAPY TEACHER-C Work Phone: [facility] 12-08-2024 23:34-0400 Body height 187.[address] Cristian Tate Work Phone: [facility] 12-08-2024 23:34-0400 Body mass index (BMI) [Ratio] 44.6 kg/m2 Dr. Cristian Tate Work Phone: [facility] 12-08-2024 23:34-0400 Body temperature 98 [degF] Dr. Cristian Tate Work Phone: [facility] 12-08-2024 23:34-0400 Body weight 157.[address] Cristian Tate Work Phone: [facility] 12-08-2024 23:34-0400 Diastolic blood pressure 105 mm[Hg] Dr. Cristian Tate Work Phone: [facility] 12-08-2024 23:34-0400 Heart rate 104 /min Dr. Cristian Tate Work Phone: 1(562)545-056732 [place] [address] 12-08-2024 23:34-0400 Respiratory rate 22 /min Dr. Cristian Tate Work Phone: 2(758)909-295332 [place] [address] 12-08-2024 23:34-0400 SaO2% (BldA) [Mass fraction] 99 % Dr. Cristian Tate Work Phone: 3(664)530-877332 [place] [address] 12-08-2024 23:34-0400 Systolic blood pressure 175 mm[Hg] Dr. Cristian Tate Work Phone: 3(004)625-018414 [place] [address] 12-07-2024 00:21-0400 Body temperature 96.9 [degF] Dr. Cristian Tate Work Phone: 7(113)611-144632 [place] [address] 12-07-2024 00:21-0400 Diastolic blood pressure 92 mm[Hg] Dr. Cristian Tate Work Phone: 4(750)527-991432 [place] [address] 12-07-2024 00:21-0400 Heart rate 103 /min Dr. Cristian Tate Work Phone: 4(167)750-938832 [place] [address] 12-07-2024 00:21-0400 Respiratory rate 16 /min Dr. Cristian Tate Work Phone: 5(216)098-097232 [place] [address] 12-07-2024 00:21-0400 SaO2% (BldA) [Mass fraction] 99 % Dr. Cristian Tate Work Phone: 9(426)848-439732 [place] [address] 12-07-2024 00:21-0400 Systolic blood pressure 137 mm[Hg] Dr. Cristian Tate Work Phone: [facility] 12-06-2024 23:19-0400 Body height 187.[address] Cristian Tate Work Phone: 7(147)587-484932 [place] [address] 12-06-2024 23:19-0400 Body mass index (BMI) [Ratio] 43.9 kg/m2 Dr. Cristian Tate Work Phone: 6(410)960-847032 [place] [address] 12-06-2024 23:19-0400 Body weight 155.[address] Cristian Tate Work Phone: 6(690)578-533232 [place] [address] 09-19-2024 22:25-0400 Body temperature 97 [degF] Dr. Cristian Tate Work Phone: 2(923)424-952632 [place] [address] 09-19-2024 22:25-0400 Diastolic blood pressure 93 mm[Hg] Dr. Cristian Tate Work Phone: 2(836)748-792232 [place] [address] 09-19-2024 22:25-0400 Heart rate 99 /min Dr. Cristian Tate Work Phone: 3(354)097-308632 [place] [address] 09-19-2024 22:25-0400 Respiratory rate 16 /min Dr. Cristian Tate Work Phone: 4(718)865-659214 [place] [address] 09-19-2024 22:25-0400 SaO2% (BldA) [Mass fraction] 97 % Dr. Cristian Tate Work Phone: 4(083)897-591632 [place] [address] 09-19-2024 22:25-0400 Systolic blood pressure 136 mm[Hg] Dr. Cristian Tate Work Phone: 0(168)351-905332 [place] [address] 09-19-2024 21:32-0400 Body mass index (BMI) [Ratio] 44.7 kg/m2 Dr. Cristian Tate Work Phone: 2(049)775-138532 [place] [address] 09-19-2024 21:32-0400 Body weight 158.[address] Cristian Tate Work Phone: 2(082)433-807632 [place] [address] 09-19-2024 21:16-0400 Body height 187.[address] Cristian Tate Work Phone: 9(702)252-599132 [place] [address] 08-24-2024 22:40-0400 Body temperature 99.1 [degF] No Primary Care Physician [facility] 08-24-2024 22:40-0400 Diastolic blood pressure 70 mm[Hg] No Primary Care Physician [facility] 08-24-2024 22:40-0400 Heart rate 80 /min No Primary Care Physician [facility] 08-24-2024 22:40-0400 Respiratory rate 16 /min No Primary Care Physician [facility] 08-24-2024 22:40-0400 SaO2% (BldA) [Mass fraction] 100 % No Primary Care Physician [facility] 08-24-2024 22:40-0400 Systolic blood pressure 118 mm[Hg] No Primary Care Physician [facility] 08-24-2024 21:04-0400 Body height 187.96 cm No Primary Care Physician [facility] 08-24-2024 21:04-0400 Body mass index (BMI) [Ratio] 44.1 kg/m2 No Primary Care Physician [facility] 08-24-2024 21:04-0400 Body weight 155.99 kg No Primary Care Physician [facility] 08-13-2024 12:44-0500 Body height 188 cm Stephon Benavides MD Work Phone: [facility] 08-13-2024 12:44-0500 Body mass index (BMI) [Ratio] 43.78 kg/m2 Stephon Benavides MD Work Phone: [facility] 08-13-2024 12:44-0500 Body weight 154.68 kg Stephon Benavides MD Work Phone: [facility] 08-13-2024 12:44-0500 Diastolic blood pressure 95 mm[Hg] Stephon Benavides MD Work Phone: [facility] 08-13-2024 12:44-0500 Heart rate 125 /min Stephon Benavides MD Work Phone: [facility] 08-13-2024 12:44-0500 Respiratory rate 16 /min Stephon Benavides MD Work Phone: [facility] 08-13-2024 12:44-0500 Systolic blood pressure 132 mm[Hg] Stephon Benavides MD Work Phone: [facility] 06-29-2024 14:07-0500 Body height 188 cm Jonathan Gonzalez MD Work Phone: [facility] 06-29-2024 14:07-0500 Body mass index (BMI) [Ratio] 43.65 kg/m2 Jonathan Gonzalez MD Work Phone: [facility] 06-29-2024 14:07-0500 Body temperature 97.81 [degF] Jonathan Gonzalez MD Work Phone: [facility] 06-29-2024 14:07-0500 Body weight 154.22 kg Jonathan Gonzalez MD Work Phone: [facility] 06-29-2024 14:07-0500 Diastolic blood pressure 94 mm[Hg] Jonathan Gonzalez MD Work Phone: [facility] 06-29-2024 14:07-0500 Heart rate 91 /min Jonathan Gonzalez MD Work Phone: [facility] 06-29-2024 14:07-0500 Respiratory rate 18 /min Jonathan Gonzalez MD Work Phone: [facility] 06-29-2024 14:07-0500 SaO2% (BldA) [Mass fraction] 97 % Jonathan Gonzalez MD Work Phone: [facility] 06-29-2024 14:07-0500 Systolic blood pressure 141 mm[Hg] Jonathan Gonzalez MD Work Phone: [facility] 05-16-2024 21:44-0500 Body temperature 98.42 [degF] NIDAL CHOUJAA DO [facility] 05-16-2024 21:44-0500 Diastolic Blood Pressure Non-Invasive 95 mm[Hg] NIDAL CHOUJAA DO [facility] 05-16-2024 21:44-0500 Heart rate 96 /min NIDAL CHOUJAA DO [facility] 05-16-2024 21:44-0500 Respiratory rate 18 /min NIDAL CHOUJAA DO [facility] 05-16-2024 21:44-0500 Systolic Blood Pressure Non-Invasive 141 mm[Hg] NIDAL CHOUJAA DO [facility] 09-16-2023 11:05-0400 Body height 188 cm Pacc 6 Work Phone: [facility] 09-16-2023 11:05-0400 Body temperature 98.49 [degF] Pacc 6 Work Phone: [facility] 09-16-2023 11:05-0400 Body weight 162.8 kg Pacc 6 Work Phone: [facility] 09-16-2023 11:05-0400 Diastolic blood pressure 86 mm[Hg] Pacc 6 Work Phone: [facility] 09-16-2023 11:05-0400 Heart rate 101 /min Pacc 6 Work Phone: [facility] 09-16-2023 11:05-0400 SaO2% (BldA) [Mass fraction] 98 % Pacc 6 Work Phone: [facility] 09-16-2023 11:05-0400 Systolic blood pressure 143 mm[Hg] Pacc 6 Work Phone: [facility] 09-11-2023 18:11-0400 Body temperature 98.06 [degF] DAVONTE Segura [facility] 09-11-2023 18:11-0400 Diastolic Blood Pressure Non-Invasive 77 mm[Hg] DAVONTE ONEILL MD [facility] 09-11-2023 18:11-0400 Heart rate 98 /min DAVONTE Segura [facility] 09-11-2023 18:11-0400 Respiratory rate 20 /min DAVONTE Segura [facility] 09-11-2023 18:11-0400 Systolic Blood Pressure Non-Invasive 151 mm[Hg] DAVONTE ONEILL MD [facility] 08-27-2023 10:45-0400 Diastolic Blood Pressure Non-Invasive 90 mm[Hg] REYES JAK DO [facility] 08-27-2023 10:45-0400 Heart rate 94 /min REYES JAK DO [facility] 08-27-2023 10:45-0400 Respiratory rate 20 /min REYES JAK DO [facility] 08-27-2023 10:45-0400 Systolic Blood Pressure Non-Invasive 123 mm[Hg] REYES JAK DO [facility] 08-27-2023 10:35-0400 Diastolic Blood Pressure Non-Invasive 90 mm[Hg] REYES JAK DO [facility] 08-27-2023 10:35-0400 Heart rate 98 /min REYES JAK DO [facility] 08-27-2023 10:35-0400 Respiratory rate 15 /min REYES JAK DO [facility] 08-27-2023 10:35-0400 Systolic Blood Pressure Non-Invasive 123 mm[Hg] REYES JAK DO [facility] 08-27-2023 10:20-0400 Body temperature 97.7 [degF] REYES JAK DO [facility] 08-27-2023 10:20-0400 Diastolic Blood Pressure Non-Invasive 68 mm[Hg] REYES JAK DO [facility] 08-27-2023 10:20-0400 Heart rate 88 /min REYES JAK DO [facility] 08-27-2023 10:20-0400 Respiratory rate 14 /min REYES JAK DO [facility] 08-27-2023 10:20-0400 Systolic Blood Pressure Non-Invasive 113 mm[Hg] REYES JAK DO [facility] 08-27-2023 10:15-0400 Heart rate 86 /min REYES JAK DO [facility] 08-27-2023 10:15-0400 Respiratory Rate - Anes 13 br/min REYES JAK DO [facility] 08-27-2023 10:10-0400 Heart rate 96 /min REYES JAK DO [facility] 08-27-2023 10:10-0400 Respiratory Rate - Anes 15 br/min REYES JAK DO [facility] 08-27-2023 10:05-0400 Heart rate 104 /min REYES JAK DO [facility] 08-27-2023 10:05-0400 Respiratory Rate - Anes 30 br/min REYES JAK DO [facility] 08-27-2023 09:46-0400 Body temperature 97.7 [degF] REYES JAK DO [facility] 08-27-2023 09:40-0400 Body height 184.5 cm REYES MOORE DO [facility] 08-27-2023 09:40-0400 Body temperature 97.7 [degF] REYES MOORE DO [facility] 08-27-2023 09:40-0400 Body weight 143.1 kg REYES MOORE DO [facility] 08-27-2023 09:40-0400 Body weight 42.04 kg/m2 REYES MOORE DO [facility] 08-06-2023 09:01-0500 Body height 188 cm Kelley Meraz APRN.[facility], [facility] Work Phone: [facility] 08-06-2023 09:01-0500 Body weight 158.76 kg Kelley Meraz APRN.REVIEW SPECIALIST, [facility] Work Phone: [facility] 08-06-2023 09:01-0500 Diastolic blood pressure 101 mm[Hg] Kelley Meraz DIRECTOR VALIDATION.[facility], [facility] Work Phone: [facility] 08-06-2023 09:01-0500 Heart rate 107 /min Kelley Meraz APRN.REVIEW SPECIALIST, [facility] Work Phone: [facility] 08-06-2023 09:01-0500 SaO2% (BldA) [Mass fraction] 98 % Kelley Meraz APRN.REVIEW SPECIALIST, [facility] Work Phone: [facility] 08-06-2023 09:01-0500 Systolic blood pressure 153 mm[Hg] Kelley Meraz APRN.REVIEW SPECIALIST, [facility] Work Phone: [facility] 07-04-2023 00:20-0500 Body temperature 98.1 [degF] No Primary Care Physician [facility] 07-04-2023 00:20-0500 Diastolic blood pressure 89 mm[Hg] No Primary Care Physician [facility] 07-04-2023 00:20-0500 Heart rate 98 /min No Primary Care Physician [facility] 07-04-2023 00:20-0500 Respiratory rate 16 /min No Primary Care Physician [facility] 07-04-2023 00:20-0500 SaO2% (BldA) [Mass fraction] 96 % No Primary Care Physician [facility] 07-04-2023 00:20-0500 Systolic blood pressure 143 mm[Hg] No Primary Care Physician [facility] 07-03-2023 22:57-0500 Body height 187.96 cm No Primary Care Physician [facility] 07-03-2023 22:57-0500 Body mass index (BMI) [Ratio] 45.6 kg/m2 No Primary Care Physician [facility] 07-03-2023 22:57-0500 Body weight 161.28 kg No Primary Care Physician [facility] 06-28-2023 16:27-0500 Diastolic Blood Pressure Non-Invasive 93 mm[Hg] DR LEDY REESE MD [facility] 06-28-2023 16:27-0500 Heart rate 92 /min DR LEDY REESE MD [facility] 06-28-2023 16:27-0500 Respiratory rate 18 /min DR LEDY REESE MD [facility] 06-28-2023 16:27-0500 Systolic Blood Pressure Non-Invasive 133 mm[Hg] DR LEDY REESE MD [facility] 06-28-2023 14:04-0500 Blood Pressure Cuff Size DR LEDY REESE MD [facility] 06-28-2023 14:04-[address] LEDY REESE MD [facility] 06-28-2023 14:04-[address] LEDY REESE MD [facility] 06-28-2023 14:04-0500 Body height [address] LEDY REESE MD [facility] 06-28-2023 14:04-0500 Body temperature 97.7 [degF] DR LEDY REESE MD [facility] 06-28-2023 14:04-0500 Body weight 136.[address] LEDY REESE MD [facility] 06-28-2023 14:04-0500 Diastolic Blood Pressure Non-Invasive 89 mm[Hg] DR LEDY REESE MD [facility] 06-28-2023 14:04-0500 Heart rate 108 /min DR LEDY REESE MD [facility] 06-28-2023 14:04-0500 Respiratory rate 22 /min DR LEDY REESE MD [facility] 06-28-2023 14:04-0500 Systolic Blood Pressure Non-Invasive 141 mm[Hg] DR LEDY REESE MD [facility] 06-12-2023 09:46-0500 Body mass index (BMI) [Ratio] 44.5 kg/m2 No Primary Care Physician [facility] 06-12-2023 09:46-0500 Body temperature 97.1 [degF] No Primary Care Physician [facility] 06-12-2023 09:46-0500 Body weight 157.39 kg No Primary Care Physician [facility] 06-12-2023 09:46-0500 Diastolic blood pressure 91 mm[Hg] No Primary Care Physician [facility] 06-12-2023 09:46-0500 Heart rate 79 /min No Primary Care Physician [facility] 06-12-2023 09:46-0500 Respiratory rate 18 /min No Primary Care Physician [facility] 06-12-2023 09:46-0500 SaO2% (BldA) [Mass fraction] 100 % No Primary Care Physician [facility] 06-12-2023 09:46-0500 Systolic blood pressure 130 mm[Hg] No Primary Care Physician [facility] 06-08-2023 19:34-0500 Diastolic Blood Pressure Non-Invasive 85 mm[Hg] DR PAUL DOBSON DO [facility] 06-08-2023 19:34-0500 Heart rate 87 /min DR PAUL DOBSON DO [facility] 06-08-2023 19:34-0500 Respiratory rate 18 /min DR PAUL DOBSON DO [facility] 06-08-2023 19:34-0500 Systolic Blood Pressure Non-Invasive 146 mm[Hg] DR PAUL DOBSON DO [facility] 06-08-2023 17:51-0500 Blood Pressure Cuff Size DR PAUL DOBSON DO [facility] 06-08-2023 17:51-[address] PAUL DOBSON DO [facility] 06-08-2023 17:51-[address] PAUL DOBSON DO [facility] 06-08-2023 17:51-0500 Body temperature 98.78 [degF] DR PAUL DOBSON DO [facility] 06-08-2023 17:51-0500 Diastolic Blood Pressure Non-Invasive 80 mm[Hg] DR PAUL DOBSON DO [facility] 06-08-2023 17:51-0500 Heart rate 96 /min DR PAUL DOBSON DO [facility] 06-08-2023 17:51-0500 Respiratory rate 18 /min DR PAUL DOBSON DO [facility] 06-08-2023 17:51-0500 Systolic Blood Pressure Non-Invasive 113 mm[Hg] DR PAUL DOBSON DO [facility] 06-01-2023 01:12-0500 Body height 185.42 cm [facility] 06-01-2023 01:12-0500 Body mass index (BMI) [Ratio] 46.3 kg/m2 [facility] 06-01-2023 01:12-0500 Body temperature 98.4 [degF] [facility] 06-01-2023 01:12-0500 Body weight 159.4 kg [facility] 06-01-2023 01:12-0500 Diastolic blood pressure 96 mm[Hg] [facility] 06-01-2023 01:12-0500 Heart rate 96 /min [facility] 06-01-2023 01:12-0500 Respiratory rate 20 /min [facility] 06-01-2023 01:12-0500 SaO2% (BldA) [Mass fraction] 99 % [facility] 06-01-2023 01:12-0500 Systolic blood pressure 157 mm[Hg] [facility] 05-16-2023 22:40-0500 Diastolic Blood Pressure Non-Invasive 80 mm[Hg] TOI REICHFIELD DO [facility] 05-16-2023 22:40-0500 Heart rate 94 /min TOI REICHFIELD DO [facility] 05-16-2023 22:40-0500 Respiratory rate 18 /min TOI REICHFIELD DO [facility] 05-16-2023 22:40-0500 Systolic Blood Pressure Non-Invasive 132 mm[Hg] TOI REICHFIELD DO [facility] 05-16-2023 21:30-0500 Heart rate 98 /min TOI REICHFIELD DO [facility] 05-16-2023 21:30-0500 Respiratory rate 16 /min TOI REICHFIELD DO [facility] 05-16-2023 21:20-0500 Reason For Taking VItal Signs TOI REICHFIELD DO [facility] 05-16-2023 20:06-0500 Body height 188 cm TOI REICHFIELD DO [facility] 05-16-2023 20:06-0500 Body temperature 98.42 [degF] TOI REICHFIELD DO [facility] 05-16-2023 20:06-0500 Body weight 134.1 kg TOI REICHFIELD DO [facility] 05-16-2023 20:06-0500 Diastolic Blood Pressure Non-Invasive 85 mm[Hg] TOI REICHFIELD DO [facility] 05-16-2023 20:06-0500 Heart rate 98 /min TOI REICHFIELD DO [facility] 05-16-2023 20:06-0500 Respiratory rate 18 /min TOI REICHFIELD DO [facility] 05-16-2023 20:06-0500 Systolic Blood Pressure Non-Invasive 138 mm[Hg] TOI REICHFIELD DO [facility] 02-12-2023 20:36-0400 Diastolic Blood Pressure Non-Invasive 90 1 TOI REICHFIELD DO [facility] 02-12-2023 20:36-0400 Heart rate 77 /min TOI REICHFIELD DO [facility] 02-12-2023 20:36-0400 Reason For Taking VItal Signs TOI REICHFIELD DO [facility] 02-12-2023 20:36-0400 Respiratory rate 20 /min TOI REICHFIELD DO [facility] 02-12-2023 20:36-0400 Systolic Blood Pressure Non-Invasive 130 1 TOI REICHFIELD DO [facility] 02-12-2023 19:10-0400 Diastolic Blood Pressure Non-Invasive 92 1 TOI REICHFIELD DO [facility] 02-12-2023 19:10-0400 Heart rate 75 /min TOI REICHFIELD DO [facility] 02-12-2023 19:10-0400 Reason For Taking VItal Signs TOI REICHFIELD DO [facility] 02-12-2023 19:10-0400 Respiratory rate 18 /min TOI REICHFIELD DO [facility] 02-12-2023 19:10-0400 Systolic Blood Pressure Non-Invasive 129 1 TOI REICHFIELD DO [facility] 02-12-2023 18:15-0400 Diastolic Blood Pressure Non-Invasive 88 1 TOI REICHFIELD DO [facility] 02-12-2023 18:15-0400 Heart rate 88 /min TOI REICHFIELD DO [facility] 02-12-2023 18:15-0400 Reason For Taking VItal Signs TOI REICHFIELD DO [facility] 02-12-2023 18:15-0400 Respiratory rate 20 /min TOI RELETICIAFIELD DO [facility] 02-12-2023 18:15-0400 Systolic Blood Pressure Non-Invasive 137 1 TOI RELETICIAFIELD DO [facility] 02-12-2023 17:24-0400 Body temperature 98.24 [degF] [facility] DO [facility] 02-12-2023 17:24-0400 Body weight 149.9 kg [facility] DO [facility] 02-12-2023 17:24-0400 Heart rate 100 /min [facility]IDESTIN [facility] DO [facility] 10-28-2022 11:57-0400 Blood Pressure Cuff Size ROSHNI SCHWARZENTRAUB PA-C [facility] 10-28-2022 11:57-0400 Blood Pressure Location ROSHNI SCHWARZENTRAUB PA-C [facility] 10-28-2022 11:57-0400 Blood Pressure Method ROSHNI SCHWARZENTRAUB PA-C [facility] 10-28-2022 11:57-0400 Body height 188 cm ROSHNI SCHWARZENTRA UB PA-C [facility] 10-28-2022 11:57-0400 Body temperature 97.88 [degF] ROSHNI SCHWARZENTRA UB PA-C [facility] 10-28-2022 11:57-0400 Body weight 134.1 kg ROSHNI SCHWARZENTRA UB PA-C [facility] 10-28-2022 11:57-0400 Body weight 37.94 kg/m2 ROSHNI SCHWARZENTRA UB PA-C [facility] 10-28-2022 11:57-0400 Diastolic Blood Pressure Non-Invasive 87 1 ROSHNI SCHWARZENTRAUB PA-C [facility] 10-28-2022 11:57-0400 Heart rate 111 /min ROSHNI SAUERARIndependa UB PA-C [facility] 10-28-2022 11:57-0400 Respiratory rate 18 /min [facility] CRISTIANEARIndependa UB PA-C [facility] 10-28-2022 11:57-0400 Systolic Blood Pressure Non-Invasive 132 1 ROSHNI SCHWARZENTRAUB PA-C [facility] 10-28-2022 01:45-0400 Body temperature 98.96 [degF] YARA HENSON MD [facility] 10-28-2022 01:45-0400 Diastolic Blood Pressure Non-Invasive 96 1 YARA HENSON MD [facility] 10-28-2022 01:45-0400 Heart rate 98 /min YARA HENSON MD [facility] 10-28-2022 01:45-0400 Respiratory rate 20 /min YARA HENSON MD [facility] 10-28-2022 01:45-0400 Systolic Blood Pressure Non-Invasive 143 1 YARA HENSON MD [facility] 10-21-2022 08:44-0400 Blood Pressure Cuff Size AVANI CANTOR DIRECTOR VALIDATION-REVIEW SPECIALIST [facility] 10-21-2022 08:44-0400 Blood Pressure Location AVANI CANTOR DIRECTOR VALIDATION-REVIEW SPECIALIST [facility] 10-21-2022 08:44-0400 Blood Pressure Method AVANI BATERS DIRECTOR VALIDATION-REVIEW SPECIALIST [facility] 10-21-2022 08:44-0400 Body height 188 cm AVANI CANTOR DIRECTOR VALIDATION-REVIEW SPECIALIST [facility] 10-21-2022 08:44-0400 Body temperature 98.42 [degF] AVANI CANTOR DIRECTOR VALIDATION-REVIEW SPECIALIST [facility] 10-21-2022 08:44-0400 Body weight 134.1 kg AVANI CANTOR DIRECTOR VALIDATION-REVIEW SPECIALIST [facility] 10-21-2022 08:44-0400 Body weight 37.94 kg/m2 AVANI CANTOR DIRECTOR VALIDATION-REVIEW SPECIALIST [facility] 10-21-2022 08:44-0400 Diastolic Blood Pressure Non-Invasive 93 1 AVANI CANTOR DIRECTOR VALIDATION-REVIEW SPECIALIST [facility] 10-21-2022 08:44-0400 Heart rate 88 /min AVANI CANTOR APRN-REVIEW SPECIALIST [facility] 10-21-2022 08:44-0400 Respiratory rate 18 /min AVANI CANTOR DIRECTOR VALIDATION-REVIEW SPECIALIST [facility] 10-21-2022 08:44-0400 Systolic Blood Pressure Non-Invasive 152 1 AVANI CANTOR DIRECTOR VALIDATION-REVIEW SPECIALIST [facility] 09-12-2022 13:08-0400 Body height 188 cm ROSHNI [email or web address] UB PA-C [facility] 09-12-2022 13:08-0400 Body temperature 98.06 [degF] [employer] UB PA-C [facility] 09-12-2022 13:08-0400 Body weight 131.8 kg [employer] UB PA-C [facility] 09-12-2022 13:08-0400 Body weight 37.29 kg/m2 [facility] [email or web address]B PA-C [facility] 09-12-2022 13:08-0400 Diastolic Blood Pressure Non-Invasive 95 1 ROSHNI SCHWARZENTRAUB PA-C [facility] 09-12-2022 13:08-0400 Heart rate 90 /min [facility] [email or web address] PA-C [facility] 09-12-2022 13:08-0400 Respiratory rate 18 /min [facility] [email or web address] PA-C [facility] 09-12-2022 13:08-0400 Systolic Blood Pressure Non-Invasive 148 1 [facility] [email or web address] PA-C [facility] 09-05-2022 10:00-0400 Blood Pressure Cuff Size AVANI BATERS DIRECTOR VALIDATION-REVIEW SPECIALIST [facility] 09-05-2022 10:00-0400 Blood Pressure Location AVANI BATERS DIRECTOR VALIDATION-REVIEW SPECIALIST [facility] 09-05-2022 10:00-0400 Blood Pressure Method AVANI BATERS DIRECTOR VALIDATION-REVIEW SPECIALIST [facility] 09-05-2022 10:00-0400 Body height 188 cm AVANI BATERS DIRECTOR VALIDATION-REVIEW SPECIALIST [facility] 09-05-2022 10:00-0400 Body temperature 98.6 [degF] AVANI BATERS DIRECTOR VALIDATION-REVIEW SPECIALIST [facility] 09-05-2022 10:00-0400 Body weight 135 kg AVANI BATERS DIRECTOR VALIDATION-REVIEW SPECIALIST [facility] 09-05-2022 10:00-0400 Body weight 38.2 kg/m2 AVANI BATERS DIRECTOR VALIDATION-REVIEW SPECIALIST [facility] 09-05-2022 10:00-0400 Diastolic Blood Pressure Non-Invasive 91 1 AVANI BATERS DIRECTOR VALIDATION-REVIEW SPECIALIST [facility] 09-05-2022 10:00-0400 Heart rate 88 /min AVANI CANTOR DIRECTOR VALIDATION-REVIEW SPECIALIST [facility] 09-05-2022 10:00-0400 Respiratory rate 18 /min AVANI CANTOR DIRECTOR VALIDATION-REVIEW SPECIALIST [facility] 09-05-2022 10:00-0400 Systolic Blood Pressure Non-Invasive 119 1 AVANI CANTOR DIRECTOR VALIDATION-REVIEW SPECIALIST [facility] 08-28-2022 21:45-0400 Diastolic Blood Pressure Non-Invasive 84 1 ANJEL FRIAST DO [facility] 08-28-2022 21:45-0400 Heart rate 86 /min ANJEL FRIAST DO [facility] 08-28-2022 21:45-0400 Respiratory rate 18 /min ANJEL FRIAST DO [facility] 08-28-2022 21:45-0400 Systolic Blood Pressure Non-Invasive 136 1 ANJEL FRIAST DO [facility] 08-28-2022 19:06-0400 Body temperature 97.88 [degF] ANJEL FRIAST DO [facility] 08-28-2022 19:06-0400 Body weight 136.4 kg ANJEL FRIAST DO [facility] 08-28-2022 19:06-0400 Diastolic Blood Pressure Non-Invasive 84 1 ANJEL FRIAST DO [facility] 08-28-2022 19:06-0400 Heart rate 100 /min ANJEL FRIAST DO [facility] 08-28-2022 19:06-0400 Respiratory rate 20 /min ANJEL [employer] [facility] 08-28-2022 19:06-0400 Systolic Blood Pressure Non-Invasive 141 1 ANJEL [employer] [facility] 08-18-2022 15:50-0500 Diastolic Blood Pressure Non-Invasive 80 1 ANJEL [employer] [facility] 08-18-2022 15:50-0500 Heart rate 81 /min ANJEL [employer] [facility] 08-18-2022 15:50-0500 Reason For Taking VItal Signs ANJEL [employer] [facility] 08-18-2022 15:50-0500 Respiratory rate 16 /min ANJEL [employer] [facility] 08-18-2022 15:50-0500 Systolic Blood Pressure Non-Invasive 142 1 ANJEL [employer] [facility] 08-18-2022 14:01-0500 Diastolic Blood Pressure Non-Invasive 89 1 ANJEL [employer] [facility] 08-18-2022 14:01-0500 Systolic Blood Pressure Non-Invasive 142 1 ANJEL [employer] [facility] 08-18-2022 13:55-0500 Body temperature 97.88 [degF] ANJEL [employer] [facility] 08-18-2022 13:55-0500 Diastolic Blood Pressure Non-Invasive 86 1 ANJEL [employer] [facility] 08-18-2022 13:55-0500 Heart rate 87 /min ANJEL [employer] [facility] 08-18-2022 13:55-0500 Respiratory rate 12 /min ANJEL [employer] [facility] 08-18-2022 13:55-0500 Systolic Blood Pressure Non-Invasive 161 1 ANJEL [employer] [facility] 08-18-2022 11:32-0500 Body temperature 98.42 [degF] ANJEL [employer] [facility] 08-18-2022 11:32-0500 Body weight 153.5 kg [facility]EL [facility] 08-18-2022 11:32-0500 Heart rate 96 /min [facility]JEL [facility] 08-18-2022 11:32-0500 Respiratory rate 18 /min [facility]JEL [facility] [employer] [facility] 07-22-2022 13:54-0500 Diastolic Blood Pressure Non-Invasive 83 1 BLANCO SHAW MD [facility] 07-22-2022 13:54-0500 Heart rate 86 /min BLANCO SHAW MD [facility] 07-22-2022 13:54-0500 Respiratory rate 16 /min BLANCO SHAW MD [facility] 07-22-2022 13:54-0500 Systolic Blood Pressure Non-Invasive 135 1 BLANCO SHAW MD [facility] 07-22-2022 12:30-0500 Diastolic Blood Pressure Non-Invasive 89 1 BLANCO SHAW MD [facility] 07-22-2022 12:30-0500 Heart rate 91 /min BLANCO SHAW MD [facility] 07-22-2022 12:30-0500 Respiratory rate 16 /min BLANCO SHAW MD [facility] 07-22-2022 12:30-0500 Systolic Blood Pressure Non-Invasive 136 1 BLANCO SHAW MD [facility] 07-22-2022 11:30-0500 Diastolic Blood Pressure Non-Invasive 84 1 BLANCO SHAW MD [facility] 07-22-2022 11:30-0500 Heart rate 100 /min BLANCO SHAW MD [facility] 07-22-2022 11:30-0500 Respiratory rate 20 /min BLANCO SHAW MD [facility] 07-22-2022 11:30-0500 Systolic Blood Pressure Non-Invasive 142 1 BLANCO SHAW MD [facility] 07-22-2022 10:12-0500 Body height 188 cm BLANCO SHAW MD [facility] 07-22-2022 10:12-0500 Body temperature 98.96 [degF] BLANCO SHAW MD [facility] 07-22-2022 10:12-0500 Body weight 132 kg BLANCO SHAW MD [facility] 07-18-2022 14:20-0500 Diastolic Blood Pressure Non-Invasive 95 1 AARON DUQUE MD [facility] 07-18-2022 14:20-0500 Heart rate 99 /min AARON DUQUE MD [facility] 07-18-2022 14:20-0500 Respiratory rate 16 /min AARON DUQUE MD [facility] 07-18-2022 14:20-0500 Systolic Blood Pressure Non-Invasive 130 1 AARON DUQUE MD [facility] 07-18-2022 13:50-0500 Diastolic Blood Pressure Non-Invasive 88 1 AARON DUQUE MD [facility] 07-18-2022 13:50-0500 Heart rate 105 /min AARON DUQUE MD [facility] 07-18-2022 13:50-0500 Respiratory rate 16 /min AARON DUQUE MD [facility] 07-18-2022 13:50-0500 Systolic Blood Pressure Non-Invasive 137 1 AARON DUQUE MD [facility] 07-18-2022 13:20-0500 Diastolic Blood Pressure Non-Invasive 77 1 AARON DUQUE MD [facility] 07-18-2022 13:20-0500 Heart rate 104 /min AARON DUQUE MD [facility] 07-18-2022 13:20-0500 Respiratory rate 16 /min AARON DUQUE MD [facility] 07-18-2022 13:20-0500 Systolic Blood Pressure Non-Invasive 144 1 AARON DUQUE MD [facility] 07-18-2022 13:15-0500 Heart rate 99 /min AARON DUQUE MD [facility] 07-18-2022 13:00-0500 Heart rate 102 /min AARON DUQUE MD [facility] 07-18-2022 11:28-0500 Body temperature 97.88 [degF] AARON DUQUE MD [facility] 07-18-2022 11:25-0500 Respiratory Rate - Anes 0 br/min AARON DUQUE MD [facility] 07-18-2022 11:20-0500 Respiratory Rate - Anes 0 br/min AARON DUQUE MD [facility] 07-18-2022 11:15-0500 Respiratory Rate - Anes 10 br/min AARON DUQUE MD [facility] 07-18-2022 06:48-0500 Body height 188 cm AARON DUQUE MD [facility] 07-18-2022 06:48-0500 Body temperature 98.96 [degF] AARON DUQUE MD [facility] 07-18-2022 06:48-0500 Body weight 134 kg AARON DUQUE MD [facility] 07-18-2022 06:48-0500 Heart rate 99 /min AARON DUQUE MD [facility] 07-15-2022 01:50-0500 Diastolic Blood Pressure Non-Invasive 79 1 DAVONTE ONEILL MD [facility] 07-15-2022 01:50-0500 Heart rate 93 /min DAVONTE Segura [facility] 07-15-2022 01:50-0500 Respiratory rate 15 /min DAVONTE Segura [facility] 07-15-2022 01:50-0500 Systolic Blood Pressure Non-Invasive 124 1 DAVONTE ONEILL MD [facility] 07-15-2022 00:30-0500 Body temperature 97.88 [degF] DAVONTE Segura [facility] 07-15-2022 00:30-0500 Diastolic Blood Pressure Non-Invasive 91 1 DAVONTE ONEILL MD [facility] 07-15-2022 00:30-0500 Heart rate 101 /min DAVONTE Beaver D [facility] 07-15-2022 00:30-0500 Respiratory rate 18 /min DAVONTE Beaver D [facility] 07-15-2022 00:30-0500 Systolic Blood Pressure Non-Invasive 152 1 DAVONTE ONEILL MD [facility] 07-09-2022 13:12-0500 Blood Pressure Cuff Size AARON DUQUE MD [facility] 07-09-2022 13:12-0500 Blood Pressure Location AARON DUQUE MD [facility] 07-09-2022 13:12-0500 Blood Pressure Method AARON DUQUE MD [facility] 07-09-2022 13:12-0500 Body height 188 cm AARON DUQUE MD [facility] 07-09-2022 13:12-0500 Body weight 134.1 kg AARON DUQUE MD [facility] 07-09-2022 13:12-0500 Body weight 37.94 kg/m2 AARON DUQUE MD [facility] 07-09-2022 13:12-0500 Diastolic Blood Pressure Non-Invasive 82 1 AARON DUQUE MD [facility] 07-09-2022 13:12-0500 Heart rate 91 /min AARON DUQUE MD [facility] 07-09-2022 13:12-0500 Systolic Blood Pressure Non-Invasive 122 1 AARON DUQUE MD [facility] 06-27-2022 23:59-0500 Diastolic Blood Pressure Non-Invasive 75 1 YARA HENSON MD [facility] 06-27-2022 23:59-0500 Heart rate 85 /min YARA HENSON MD [facility] 06-27-2022 23:59-0500 Reason For Taking VItal Signs YARA HENSON MD [facility] 06-27-2022 23:59-0500 Respiratory rate 18 /min YARA HENSON MD [facility] 06-27-2022 23:59-0500 Systolic Blood Pressure Non-Invasive 130 1 YARA HENSON MD [facility] 06-27-2022 21:38-0500 Body temperature 97.52 [degF] YARA HENSON MD [facility] 06-27-2022 21:38-0500 Diastolic Blood Pressure Non-Invasive 100 1 YARA HENSON MD [facility] 06-27-2022 21:38-0500 Heart rate 105 /min YARA HENSON MD [facility] 06-27-2022 21:38-0500 Respiratory rate 24 /min YARA HENSON MD [facility] 06-27-2022 21:38-0500 Systolic Blood Pressure Non-Invasive 157 1 YARA HENSON MD [facility] 06-19-2022 19:36-0500 Body temperature 99.1 [degF] [facility] 06-19-2022 19:36-0500 Diastolic blood pressure 87 mm[Hg] [facility] 06-19-2022 19:36-0500 Heart rate 110 /min [facility] 06-19-2022 19:36-0500 Respiratory rate 18 /min [facility] 06-19-2022 19:36-0500 SaO2% (BldA) [Mass fraction] 96 % [facility] 06-19-2022 19:36-0500 Systolic blood pressure 126 mm[Hg] [facility] 06-01-2022 00:00-0500 Diastolic Blood Pressure Non-Invasive 88 1 YARA HENSON MD [facility] 06-01-2022 00:00-0500 Heart rate 85 /min YARA HENSON MD [facility] 06-01-2022 00:00-0500 Respiratory rate 16 /min YARA HENSON MD [facility] 06-01-2022 00:00-0500 Systolic Blood Pressure Non-Invasive 125 1 YARA HENSON MD [facility] 05-31-2022 21:41-0500 Body height 190.5 cm YARA HENSON MD [facility] 05-31-2022 21:41-0500 Body temperature 97.88 [degF] YARA HENSON MD [facility] 05-31-2022 21:41-0500 Body weight 127.3 kg YARA HENSON MD [facility] 05-31-2022 21:41-0500 Diastolic Blood Pressure Non-Invasive 89 1 YARA HENSON MD [facility] 05-31-2022 21:41-0500 Heart rate 90 /min YARA HENSON MD [facility] 05-31-2022 21:41-0500 Respiratory rate 18 /min YARA HENSON MD [facility] 05-31-2022 21:41-0500 Systolic Blood Pressure Non-Invasive 127 1 YARA HENSON MD [facility] 05-27-2022 18:03-0500 Body height 180.[address] ABDI AGUIRRE MD [facility] 05-27-2022 18:03-0500 Body temperature 98.96 [degF] DR ABDI AGUIRRE MD [facility] 05-27-2022 18:03-0500 Body weight 127.[address] ABDI AGUIRRE MD [facility] 05-27-2022 18:03-0500 Diastolic Blood Pressure Non-Invasive [address] ABDI AGUIRRE MD [facility] 05-27-2022 18:03-0500 Heart rate 118 /min DR ABDI AGUIRRE MD [facility] 05-27-2022 18:03-0500 Respiratory rate 20 /min DR ABDI AGUIRRE MD [facility] 05-27-2022 18:03-0500 Systolic Blood Pressure Non-Invasive [address] ABDI AGUIRRE MD [facility] 04-25-2022 17:56-0500 Diastolic blood pressure 98 mm[Hg] [facility] 04-25-2022 17:56-0500 Heart rate 90 /min [facility] 04-25-2022 17:56-0500 Respiratory rate 18 /min [facility] [employer] 04-25-2022 17:56-0500 SaO2% (BldA) [Mass fraction] 100 % [facility] [employer] 04-25-2022 17:56-0500 Systolic blood pressure 156 mm[Hg] [facility] [employer] 04-25-2022 15:04-0500 Body height 188 cm [facility] [employer] 04-25-2022 15:04-0500 Body mass index (BMI) [Ratio] 34.67 kg/m2 [facility] [employer] 04-25-2022 15:04-0500 Body temperature 97.11 [degF] [facility] [employer] 04-25-2022 15:04-0500 Body weight 122.47 kg [facility] [employer] 04-03-2022 14:31-0400 Diastolic blood pressure 90 mm[Hg] Pcp No [facility] [employer] 04-03-2022 14:31-0400 Heart rate 100 /min Pcp No [facility] [employer] 04-03-2022 14:31-0400 Respiratory rate 16 /min Pcp No [facility] [employer] [facility] [employer] 04-03-2022 14:31-0400 SaO2% (BldA) [Mass fraction] 100 % [facility]cp [facility] [employer] 04-03-2022 14:31-0400 Systolic blood pressure 140 mm[Hg] [facility]cp [facility] [employer] 04-03-2022 14:14-0400 Body temperature 98.2 [degF] Pcp No [facility] [employer] [facility] [employer] 03-15-2022 00:52-0400 Diastolic blood pressure 75 mm[Hg] JORGITO CANNON DO [facility] 03-15-2022 00:52-0400 Heart rate 97 /min JORGITO CANNON DO [facility] 03-15-2022 00:52-0400 Respiratory rate 16 /min JORGITO CANNON DO [facility] 03-15-2022 00:52-0400 Systolic blood pressure 121 mm[Hg] JORGITO CANNON DO [facility] 03-14-2022 22:56-0400 Body temperature 98.24 [degF] JORGITO CANNON DO [facility] 03-14-2022 22:56-0400 Diastolic blood pressure 81 mm[Hg] JORGITO CANNON DO [facility] 03-14-2022 22:56-0400 Heart rate 107 /min JORGITO CANNON DO [facility] 03-14-2022 22:56-0400 Respiratory rate 18 /min JORGITO CANNON DO [facility] 03-14-2022 22:56-0400 Systolic blood pressure 119 mm[Hg] JORGITO CANNON DO [facility] 03-08-2022 00:57-0400 Body temperature 98.29 [degF] Giles Darrion DO Work Phone: [facility] 03-08-2022 00:57-0400 Diastolic blood pressure 89 mm[Hg] Giles Darrion DO Work Phone: [facility] 03-08-2022 00:57-0400 Heart rate 100 /min Giles Darrion DO Work Phone: [facility] 03-08-2022 00:57-0400 Respiratory rate 18 /min Giles Darrion DO Work Phone: [facility] 03-08-2022 00:57-0400 SaO2% (BldA) [Mass fraction] 98 % Giles Darrion DO Work Phone: [facility] 03-08-2022 00:57-0400 Systolic blood pressure 134 mm[Hg] Giles Darrion DO Work Phone: [facility] 01-03-2022 09:42-0400 Body height 185.4 cm Ibrahima Schaefer MD Work Phone: [facility] 01-03-2022 09:42-0400 Body temperature 98.29 [degF] Ibrahima Schaefer MD Work Phone: [facility] 01-03-2022 09:42-0400 Body weight 144.7 kg Ibrahima Schaefer MD Work Phone: [facility] 01-03-2022 09:42-0400 Diastolic blood pressure 76 mm[Hg] Ibrahima Schaefer MD Work Phone: [facility] 01-03-2022 09:42-0400 Heart rate 102 /min Ibrahima Schaefer MD Work Phone: [facility] 01-03-2022 09:42-0400 Respiratory rate 18 /min Ibrahima Schaefer MD Work Phone: [facility] 01-03-2022 09:42-0400 SaO2% (BldA) [Mass fraction] 97 % Ibrahima Schaefer MD Work Phone: [facility] 01-03-2022 09:42-0400 Systolic blood pressure 124 mm[Hg] Ibrahima Schaefer MD Work Phone: [facility] 01-01-2022 20:51-0400 Diastolic blood pressure 86 mm[Hg] [facility] Work Phone: 01-01-2022 20:51-0400 Heart rate 83 /min [facility] Work Phone: 01-01-2022 20:51-0400 Respiratory rate 18 /min [facility] Work Phone: 01-01-2022 20:51-0400 SaO2% (BldA) [Mass fraction] 100 % [facility] Work Phone: 01-01-2022 20:51-0400 Systolic blood pressure 133 mm[Hg] [facility] Work Phone: 01-01-2022 17:58-0400 Body height 185.42 cm [facility] Work Phone: 01-01-2022 17:58-0400 Body mass index (BMI) [Ratio] 42.1 kg/m2 [facility] Work Phone: 01-01-2022 17:58-0400 Body temperature 98.1 [degF] [facility] Work Phone: 01-01-2022 17:58-0400 Body weight 145 kg [facility] Work Phone: 12-21-2021 22:34-0400 Diastolic blood pressure 83 mm[Hg] ANJEL FROMMELT DO [facility] 12-21-2021 22:34-0400 Heart rate 77 /min ANJEL FROMMELT DO [facility] 12-21-2021 22:34-0400 Reason For Taking VItal Signs ANJEL FROMMELT DO [facility] 12-21-2021 22:34-0400 Respiratory rate 20 /min ANJEL FROMMELT DO [facility] 12-21-2021 22:34-0400 Systolic blood pressure 138 mm[Hg] ANJEL FROMMELT DO [facility] 12-21-2021 21:27-0400 Diastolic blood pressure 93 mm[Hg] ANJEL FROMMELT DO [facility] 12-21-2021 21:27-0400 Heart rate 87 /min ANJEL FROMMELT DO [facility] 12-21-2021 21:27-0400 Reason For Taking VItal Signs ANJEL FROMMELT DO [facility] 12-21-2021 21:27-0400 Respiratory rate 20 /min ANJEL FROMMELT DO [facility] 12-21-2021 21:27-0400 Systolic blood pressure 144 mm[Hg] ANJEL FROMMELT DO [facility] 12-21-2021 20:43-0400 Body temperature 99.14 [degF] ANJEL PEÑA DO [facility] 12-21-2021 20:43-0400 Diastolic blood pressure 89 mm[Hg] ANJEL PEÑA DO [facility] 12-21-2021 20:43-0400 Heart rate 96 /min ANJEL PEÑA DO [facility] 12-21-2021 20:43-0400 Respiratory rate 22 /min ANJEL PEÑA DO [facility] 12-21-2021 20:43-0400 Systolic blood pressure 172 mm[Hg] ANJEL PEÑA DO [facility] 11-30-2021 20:30-0400 Diastolic blood pressure 82 mm[Hg] YARA HENSON MD [facility] 11-30-2021 20:30-0400 Heart rate 78 /min YARA HENSON MD [facility] 11-30-2021 20:30-0400 Mean blood pressure 101 mm[Hg] YARA HENSON MD [facility] 11-30-2021 20:30-0400 Respiratory rate 18 /min YARA HENSON MD [facility] 11-30-2021 20:30-0400 Systolic blood pressure 140 mm[Hg] YARA HENSON MD [facility] 11-30-2021 19:12-0400 Body temperature 98.06 [degF] YARA HENSON MD [facility] 11-30-2021 19:12-0400 Diastolic blood pressure 89 mm[Hg] YARA HENSON MD [facility] 11-30-2021 19:12-0400 Heart rate 87 /min YARA HENSON MD [facility] 11-30-2021 19:12-0400 Respiratory rate 18 /min YARA HENSON MD [facility] 11-30-2021 19:12-0400 Systolic blood pressure 148 mm[Hg] YARA HENSON MD [facility] 11-14-2021 13:10-0400 Body height 185.4 cm AARON DUQUE MD [facility] 11-14-2021 13:10-0400 Body weight 140.9 kg AARON DUQUE MD [facility] 11-14-2021 13:10-0400 Body weight 40.99 kg/m2 AARON DUQUE MD [facility] 11-14-2021 13:10-0400 diastolic 74 mm[Hg] AARON DUQUE MD [facility] 11-14-2021 13:10-0400 Heart rate 103 /min AARON DUQUE MD [facility] 11-14-2021 13:10-0400 systolic 128 mm[Hg] AARON DUQUE MD [facility] 10-06-2021 14:52-0400 Body temperature 98.96 [degF] ASHLYN BLISS MD [facility] 10-06-2021 14:52-0400 Diastolic blood pressure 89 mm[Hg] ASHLYN BLISS MD [facility] 10-06-2021 14:52-0400 Heart rate 112 /min ASHLYN BLISS MD [facility] 10-06-2021 14:52-0400 Respiratory rate 18 /min ASHLYN BLISS MD [facility] 10-06-2021 14:52-0400 Systolic blood pressure 148 mm[Hg] ASHLYN BLISS MD [facility] Encounters Encounter Date Encounter Type Care Provider Facility Start: 02-17-2025 End: 02-18-2025 Emergency department patient visit Viola REYES Work Phone: -Emergency Department Work Phone: Start: 01-25-2025 End: 01-26-2025 Emergency department patient visit Viola REYES Work Phone: -Emergency Department Work Phone: Start: 12-29-2024 End: 12-29-2024 Emergency department patient visit Viola Starkey OXYGEN THERAPY TEACHER-C Work Phone: -Emergency Department Work Phone: Start: 12-08-2024 End: 12-09-2024 Emergency department patient visit Dr. Cristian Barrera DO Work Phone: -Emergency Department Work Phone: Start: 12-06-2024 End: 12-07-2024 Emergency department patient visit Dr. Cristian Barrera DO Work Phone: -Emergency Department Work Phone: Start: 09-19-2024 End: 09-19-2024 Emergency department patient visit Dr. Cristian Barrera DO Work Phone: -Emergency Department Work Phone: Start: 09-08-2024 End: 09-08-2024 ambulatory VIOLA STARKEY DIRECTOR VALIDATION-REVIEW SPECIALIST Facility:[facility] Start: 09-07-2024 End: 09-08-2024 Emergency department patient visit SHANIKA TIRADO Facility:[facility] Start: 08-24-2024 End: 08-24-2024 Emergency department patient visit No Primary Care Physician -Emergency Department Work Phone: Start: 08-13-2024 End: 08-13-2024 Office outpatient new 45 minutes Stephon Benavides MD Work Phone: [facility] Comment on above: History of abdominal hernia Start: 06-29-2024 End: 06-29-2024 Subsequent hospital visit by physician Rad External Film EF RAD EXTERNAL [employer]M [facility]UAL Comment on above: Arrived Start: 06-29-2024 End: 06-29-2024 Office outpatient new 45 minutes Jonathan Gonzalez MD Work Phone: [facility] Comment on above: Periumbilical abdomi nal pain (Primary Dx); History of abdominal hernia Start: 05-16-2024 End: 05-16-2024 Emergency department patient visit RADHA KHANNARyanDOMINICK PLATA [facility] Start: 10-10-2023 Telephone encounter Juliocesar Borrero MD, PhD Work Phone: [facility] Comment on above: Care Coordination Left lateral abdomin al pain (Primary Dx) Start: 10-07-2023 End: 10-07-2023 Evaluation and management of inpatient JESE RICHARDSON Facility:[facility] Start: 10-07-2023 Orders Only Jese Richardson MD Work Phone: General Surgery Comment on above: Left lower quadrant abdominal pain (Primary Dx) Start: 09-16-2023 Encounter for other preprocedural examination JESE RICHARDSON [facility] Start: 09-16-2023 End: 09-17-2023 ambulatory JESE RICHARDSON Facility:[facility] Start: 09-16-2023 Encounter for other preprocedural examination JESE RICHARDSON [facility] Start: 09-16-2023 End: 09-17-2023 ambulatory JESE RICHARDSON Facility:[facility] Start: 09-16-2023 End: 09-16-2023 PAT [facility] Work Phone: Pre Anesthesia Comment on above: Pre-op evaluation (P rimary Dx); Post traumatic seizure disorder (HCC); Morbid obesity (HCC); Tobacco use Start: 09-16-2023 End: 09-16-2023 Preprocedural examination done Pac Main 6 Work Phone: [facility] Work Phone: Start: 09-11-2023 End: 09-11-2023 Emergency department patient visit DAVONTE ONEILL MD Facility:B Start: 09-11-2023 End: 09-11-2023 Emergency department patient visit DAVONTE ONEILL MD [facility] Start: 08-27-2023 End: 08-27-2023 ambulatory VIOLA STARKEY DIRECTOR VALIDATION-REVIEW SPECIALIST Facility:[facility] Start: 08-27-2023 End: 08-27-2023 Minor Procedure REYES KUMARShira PLATA [facility] Start: 08-06-2023 End: 08-06-2023 ambulatory LINDA GRIFFITHS Facility:[facility] Start: 08-06-2023 End: 08-06-2023 Patient encounter procedure Kelley Meraz DIRECTOR VALIDATION.REVIEW SPECIALIST, DNP Work Phone: Neurology Pain Comment on above: Abdominal pain, unsp ecified abdominal location (Primary Dx) Start: 07-21-2023 ambulatory Jese Richardson MD Work Phone: [facility] Comment on above: 424 Cure (Resect ion of Mesh 2 hours los 0) Start: 07-21-2023 Preprocedural examination done Jese Richardson MD Work Phone: [facility] Start: 07-18-2023 Orders Only Linda Griffiths DIRECTOR VALIDATION.REVIEW SPECIALIST Work Phone: General Surgery Comment on above: Left lower quadrant abdominal pain (Primary Dx) Start: 07-07-2023 End: 07-08-2023 ambulatory JESE RICHARDSON Facility:[facility] Start: 07-03-2023 End: 07-04-2023 Emergency department patient visit No Primary Care Physician [facility] Work Phone: Start: 06-28-2023 End: 06-28-2023 Emergency department patient visit DR LEDY REESE MD Facility:B Start: 06-28-2023 End: 06-28-2023 Emergency department patient visit DR LEDY REESE MD [facility] Start: 06-12-2023 End: 06-12-2023 Patient encounter procedure No Primary Care Physician [facility] Work Phone: Start: 06-08-2023 End: 06-08-2023 Emergency department patient visit PAUL DOBSON Facility:B Start: 06-08-2023 End: 06-08-2023 Emergency department patient visit DR PAUL DOBSON DO [facility] Start: 06-01-2023 End: 06-01-2023 Emergency department patient visit [facility] Work Phone: Start: 05-17-2023 End: 05-18-20[facility] Start: 05-16-2023 End: 05-17-2023 [facility] Start: 05-16-2023 End: 05-16-2023 Emergency [facility] Start: 02-23-2023 End: 02-23-2023 Emergency department patient visit [facility] Start: 02-12-2023 End: 02-12-2023 Emergency [facility] Start: 02-12-2023 End: 02-12-2023 Emergency department [facility] Start: 10-28-2022 End: 10-29-2022 ambulatory ROSHNI FLORES PA-C Facility:A Start: 10-28-2022 End: 10-28-2022 Patient encounter procedure ROSHNI REYES-C [facility] Start: 10-28-2022 End: 10-28-2022 Emergency department patient visit YARA HENSON MD Facility:B Start: 10-28-2022 End: 10-28-2022 Emergency department patient visit YARA HENSON MD [facility] Start: 10-21-2022 End: 10-22-2022 ambulatory AVANI CANTOR APRN-REVIEW SPECIALIST Facility:A Start: 10-21-2022 End: 10-21-2022 Patient encounter procedure AVANI CANTOR DIRECTOR VALIDATION-REVIEW SPECIALIST [facility] Start: 10-20-2022 End: 10-20-2022 Emergency department patient visit DR LEDY REESE MD Facility:B Start: 09-12-2022 End: 09-12-2022 Patient encounter procedure ROSHNI FLORES PA-C [facility] Start: 09-05-2022 End: 09-05-2022 Patient encounter procedure AVANI CANTOR DIRECTOR VALIDATION-REVIEW SPECIALIST [facility] Start: 08-28-2022 End: 08-28-2022 Emergency department patient visit [facility]JEL [facility] Start: 08-18-2022 End: 08-18-2022 Emergency department patient visit [facility] Start: 07-22-2022 End: 07-22-2022 Emergency department patient visit BLANCO SHAW MD [facility] Start: 07-18-2022 End: 07-18-2022 SAME DAY STAY AARON DUQUE MD [facility] Start: 07-15-2022 End: 07-15-2022 Emergency department patient visit DAVONTE ONEILL MD [facility] Start: 07-09-2022 End: 07-09-2022 Admission to establishment AARON DUQUE MD [facility] Start: 06-27-2022 End: 06-28-2022 Emergency department patient visit YARA HENSON MD [facility] Start: 06-19-2022 End: 06-20-2022 Emergency department patient visit [facility] Comment on above: Seizure (CMS/HCC) (H CC) (Primary Dx) Start: 06-09-2022 End: 06-10-2022 Emergency department patient visit PHYSICIAN [facility] Start: 06-06-2022 End: 06-06-2022 Emergency department patient visit PHYSICIAN [facility] Start: 05-31-2022 End: 06-01-2022 Emergency department patient visit YARA HENSON MD [facility] Start: 05-27-2022 End: 05-27-2022 Emergency department patient visit DR ABDI AGUIRRE MD [facility] Start: 05-22-2022 End: 05-23-2022 Emergency department patient visit PATRICK PLATA [facility] Start: 04-25-2022 End: 04-25-2022 Emergency department patient visit PCP NO [facility] Start: 04-25-2022 End: 04-25-2022 Emergency department patient visit [facility] Comment on above: Acute pain of right shoulder (Primary Dx); Strain of right shoulder, initial encounter Start: 04-03-2022 End: 04-03-2022 Emergency department patient visit PCP NO [facility] Start: 04-03-2022 End: 04-03-2022 Emergency department patient visit Pcp No [facility] Emergency [facility] Comment on above: Injury of right wris t, initial encounter (Primary Dx) Start: 03-14-2022 End: 03-15-2022 Emergency department patient visit JORGITO CANNON DO [facility] Start: 03-08-2022 End: 03-08-2022 Emergency department patient visit UNKNOWN PROVIDER [facility] Start: 03-08-2022 End: 03-08-2022 Emergency department patient visit Giles Maier DO Work Phone: [facility] Comment on above: Closed head injury, initial encounter (Primary Dx) Start: 01-03-2022 End: 01-03-2022 Patient encounter procedure Ibrahima Schaefer MD Work Phone: General Surgery Comment on above: Hematoma (Primary Dx ); Incisional hernia, without obstruction or gangrene Start: 01-01-2022 End: 01-01-2022 Emergency department patient visit [facility] Start: 12-21-2021 End: 12-21-2021 Emergency department patient visit ANJEL PEÑA DO [facility] Start: 11-30-2021 End: 11-30-2021 Emergency department patient visit YARA HENSON MD [facility] Start: 11-14-2021 End: 11-14-2021 Admission to establishment AARON DUQUE MD [facility] Start: 10-26-2021 End: 10-26-2021 Patient encounter procedure TRU TOUSSAINT DIRECTOR VALIDATION-REVIEW SPECIALIST [facility] Start: 10-06-2021 End: 10-06-2021 Emergency department patient visit ASHLYN BLISS MD [facility] Start: 12-23-2016 End: 12-23-2016 Emergency department patient visit MILDRED GALLARDO Facility:[facility] Start: 12-16-2016 End: 12-16-2016 Emergency department patient visit JOSH HELTON Facility:[facility] Procedures Date Procedure Procedure Detail Performing Clinician Start: 02-17-2025 Estimated creatinine clearance Viola HAYESC Work Phone: Start: 01-25-2025 Estimated creatinine clearance Viola Starkey OXYGEN THERAPY TEACHER-C Work Phone: Start: 12-29-2024 Computed tomography of abdomen and pelvis with intravenous contrast Viola HAYESC Work Phone: Start: 12-29-2024 Estimated creatinine clearance Viola Starkey OXYGEN THERAPY TEACHER-C Work Phone: Start: 12-09-[address] Cristian Tate Work Phone: Start: 12-09-2024 Computed tomography of abdomen and pelvis with intravenous contrast Dr. Cristian Tate Work Phone: Start: 12-06-2024 Plain x-ray of hand Dr. Cristian Tate Work Phone: Start: 09-19-2024 Plain X-ray of clavicle Dr. Cristian Tate Work Phone: Start: 09-19-2024 Plain X-ray of shoulder Dr. Cristian Tate Work Phone: Start: 08-24-2024 Plain X-ray of shoulder No Primary Care Physician Start: 06-29-2024 Study Interpretation of outside study Jonathan Gonzalez MD Work Phone: Start: 09-16-2023 Antibody screen JESE B EFFA Comment on above: Order Comment: Speci men Type: BLOOD SPECIMEN Ordering Facility: [facility] Address: [address] [place] [address] Performed By: #### T [id number] #### [facility] CLIA [id number] [address] [place] [address] [place] [address] [place] Start: 08-27-2023 Colonoscopy [...] Radex shoulder compl ete minimum 2 views Juliannafan Grijalva PA Work Phone: Start: 04-03-2022 APPLY DIEGO WRAP PCP NO Start: 04-03-2022 Radex wrist complete minimum 3 views PCP NO Start: 04-03-2022 Radex wrist complete minimum 3 views Julianna [employer] PA Work Phone: Start: 03-08-2022 Ct cervical spine w/ o contrast material Giles Darrion DO Work Phone: Start: 03-08-2022 Ct head/brain w/o co ntrast material Giles Darrion DO Work Phone: Start: 01-01-2022 Computed tomography of abdomen and pelvis with contrast Start: 11-22-2021 Repair of recurrent ventral hernia YARA HENSON MD Start: 06-16-2018 History of repair of umbilical hernia TRU TOUSSAINT DIRECTOR VALIDATION-REVIEW SPECIALIST Start: 08-29-2017 Adult depression scr eening assessment Ibrahima Schaefer MD Work Phone: Start: 11-12-2016 Lipid 1996 panel - S luigi or Plasma Linda Griffiths DIRECTOR VALIDATION.REVIEW SPECIALIST Work Phone: Appendectomy ASHLYN Segura Drain, device (physi mary alice object) AVANI CANTOR DIRECTOR VALIDATION-REVIEW SPECIALIST Comment on above: placed and removed x 3 Plan of Treatment Date Care Activity Detail Author Start: 2029 Zoster Vaccines (1 of 2) Zoste r Vaccines (1 of 2) [facility] Start: 02-17-2025 [facility] Start: 01-26-2025 [facility] Start: 12-29-2024 [facility] Start: 12-09-2024 Hepatic function panel [facility] Start: 12-09-2024 Triacylglycerol lipa se measurement [facility] Start: 12-07-2024 [facility] Start: 08-24-2024 [facility] Start: 02-15-2024 COVID-19 Vaccine ( season) COVID-19 Vaccine ( season) [facility] Start: 02-15-2024 Influenza vaccination C [facility] Start: 07-21-2023 End: 07-21-2024 aPTT in Platelet poor plasma by Coagulation assay ACTIVATED PTT Lab Routine Preoperative examination Infected hernioplasty mesh, sequela Expected: 07/21/2023, Expires: 07/21/2024 [facility] Work Phone: Comment on above: Expected: 07/21/2023 , Expires: 07/21/2024 Start: 07-21-2023 End: 07-21-2024 CBC W Auto Differential panel - Blood CBC + DIFF Lab Routine Preoperative examination Infected hernioplasty mesh, sequela Expected: 07/21/2023, Expires: 07/21/2024 [facility] Work Phone: Comment on above: Expected: 07/21/2023 , Expires: 07/21/2024 Start: 07-21-2023 End: 07-21-2024 Comprehensive metabolic 2000 panel - Serum or Plasma COMP METABOLIC PANEL Lab Routine Preoperative examination Infected hernioplasty mesh, sequela Expected: 07/21/2023, Expires: 07/21/2024 [facility] Work Phone: Comment on above: Expected: 07/21/2023 , Expires: 07/21/2024 Start: 07-21-2023 End: 07-21-2024 PT panel - Platelet poor plasma by Coagulation assay PROTHROMBIN TIME/PT Lab Routine Preoperative examination Infected hernioplasty mesh, sequela Expected: 07/21/2023, Expires: 07/21/2024 [facility] Work Phone: Comment on above: Expected: 07/21/2023 , Expires: 07/21/2024 Start: 07-21-2023 End: 07-21-2024 TYPE AND SCREEN,30 DAY TYPE AND SCREEN,30 DAY Blood Bank Routine Preoperative examination Infected hernioplasty mesh, sequela Expected: 07/21/2023 (Approximate), Expires: 07/21/2024 [facility] Work Phone: Comment on above: Expected: 07/21/2023 (Approximate), Expires: 07/21/2024 Start: 07-03-2023 [facility] Start: 06-16-2023 Depression Assessment Depression Ass essment [facility] Start: 06-12-2023 Patient referral [facility] Work Phone: Start: 06-01-2023 [facility] Start: 02-14-2023 Covid-19 Vaccine ( season) Covid-19 Vaccine ( season) [facility] Start: 02-14-2023 Influenza vaccination Influenza Vacc ine (#1) [facility] Start: 02-14-2022 Influenza vaccination C [facility] Start: 01-14-2022 Influenza vaccination Flu vaccine (# 1) [facility] Start: 01-03-2022 End: 03-05-2022 Bacteria identified in Body fluid by Culture [facility] Work Phone: Comment on above: Expected: 01/03/2022 , Expires: 03/05/2022 Start: 01-01-2022 Application of abdom inal corset [facility] Work Phone: Start: 11-12-2021 Lipid panel Lipid Screening [facility] Start: 11-12-2021 LIPID SCREEN LIPID SCREEN [facility] Start: 06-25-2021 COVID-19 Vaccine (4 - Booster for Moderna series) COVID-19 Vaccine (4 - Booster for Moderna series) [facility] Start: 2019 Lipid panel Lipids [facility] Start: 08-29-2018 Adult depression screening assessment DEPRESSION SCREENING [facility] Start: 2014 Diabetes screen Diabetes screen [facility] Start: 2001 DTaP/Tdap/Td Vaccine s (1 - Tdap) DTaP/Tdap/Td Vaccines (1 - Tdap) [facility] Start: 1998 DTaP/Tdap/Td vaccine (1 - Tdap) DTaP/Tdap/Td vaccine (1 - Tdap) [facility] Start: 1998 DTaP/Tdap/Td Vaccine s (1 - Tdap) DTaP/Tdap/Td Vaccines (1 - Tdap) [facility] Start: 1998 Hepatitis B Vaccine (1 of 3 - 19+ 3-dose series) Hepatitis B Vaccine (1 of 3 - 19+ 3-dose series) [facility] Start: 1998 Hepatitis B Vaccines (1 of 3 - 19+ 3-dose series) Hepatitis B Vaccines (1 of 3 - 19+ 3-dose series) [facility] Start: 1998 Pneumococcal Vaccine : Pediatrics and At-Risk Adult Patients (1 of 2 - PCV) Pneumococcal Vaccine: Pediatrics and At-Risk Adult Patients (1 of 2 - PCV) [facility] Start: 1998 Urine microalbumin profile [facility] Start: 1997 Diabetes mellitus screening Diabetes Screening [facility] Start: 1997 HEPATITIS C SCREENING HEPATITIS C SC SHIVA [facility] Start: 1997 Hepatitis C screening B [facility] Start: 1997 [facility] Start: 1997 HIV screening [facility] Screening [facility] Start: 1994 HIV screening HIV screen [facility] Start: 1991 Depression Screen Depression Screen [facility] Start: 1985 PNEUMOCOCCAL (1 - PCV) PNEUMOCOCCAL (1 - PCV) [facility] Start: 1985 Pneumococcal 0-64 ye ars Vaccine (1 - PCV) Pneumococcal 0-64 years Vaccine (1 - PCV) [facility] Start: 1985 Pneumococcal vaccination Pneum ococcal Vaccine (1 of 2 - PCV) [facility] Start: 1985 Pneumococcal Vaccine : Pediatrics (0 to 5 Years) and At-Risk Patients (6 to 64 Years) (1 - PCV) Pneumococcal Vaccine: Pediatrics (0 to 5 Years) and At-Risk Patients (6 to 64 Years) (1 - PCV) [facility] Start: 01-25-1980 MMR Vaccines (1 of 1 - Standard series) MMR Vaccines (1 of 1 - Standard series) [facility] Start: 1979 COVID-19 Vaccine (#1) COVID-19 Vacci ne (#1) [facility] Start: 1979 Hepatitis B Vaccine (1 of 3 - 3-dose series) Hepatitis B Vaccine (1 of 3 - 3-dose series) [facility] Start: 1979 Hepatitis B Vaccines (1 of 3 - 3-dose series) Hepatitis B Vaccines (1 of 3 - 3-dose series) [facility] Start: 1979 HIV screening HIV Screening [facility] Start: 1979 Lipid panel Lipid Panel [facility] Start: 1979 Screening for malign ant neoplasm [facility] [facility] Start: 1980 Yearly Adult Physical Yearly Adult P hysical [facility] End: 07-21-2024 ECG COMPLETE ECG COMPLETE ECG Routine Preoperative examination Infected hernioplasty mesh, sequela 1 Occurrences starting 07/21/2023 until 07/21/2024 [facility] Work Phone: Comment on above: 1 Occurrences starti ng 07/21/2023 until 07/21/2024 Erythrocyte mean corpuscular volume determination [facility] Hematocrit [Volume Fraction] of Blood [facility] Hemoglobin [Mass/vol ume] in Blood [facility] Leukocytes [#/volume ] in Blood [facility] Mean corpuscular hemoglobin concentration determination [facility] Mean corpuscular hemoglobin determination [facility] Measurement of renal function [facility] Neutrophil count [facility] Neutrophil percent differential count [facility] Patient Education [facility] Work Phone: Patient referral [facility] Work Phone: Platelets [#/volume] in Blood [facility] Red blood cell count [facility] Red cell distributio n width determination [facility] REFER FOR ADMIT INTERVIEW REFER FOR ADMIT INTERVIEW Procedures Routine Preoperative examination Infected hernioplasty mesh, sequela Ordered: 07/21/2023 [facility] Work Phone: Comment on above: Ordered: 07/21/2023 SPINE INTERVENTION PROCEDURE SPINE INTERVENTION PROCEDURE Procedures Routine Left lateral abdominal pain Ordered: 10/10/2023 [facility] Work Phone: Comment on above: Ordered: 10/10/2023 [facility] Immunizations Immunization Date Immunization Notes Care Provider Fa [facility] 04-30-2021 SARS-CoV-2 (COVID-19 ) mRNA-1273 vaccine JORGITO CANNON DO [facility] Comment on above: Result Comment: 2021: [id number] 10-05-2020 SARS-CoV-2 (COVID-19 ) mRNA-1273 vaccine JORGITO CANNON DO [facility] 09-06-2020 SARS-CoV-2 (COVID-19 ) mRNA-1273 vaccine JORGITO CANNON DO [facility] 09-09-2013 influenza, seasonal, injectable, preservative free ASHLYN BLISS MD [facility] 09-09-2013 influenza virus vaccine, unspecified formulation [facility] Payers Date Payer Category Payer Self-pay [id number] 2024 Managed Care (Private) NGUYỄN YOST RKETPLACE [id number] 2023 Unknown NGUYỄN GUERRERO X [id number] 2023-Present [phone] [address] [address] [place] [address] HMO [id number]. [id number] 2023 Unknown [id number] 2022 Medicaid (Managed Care) 1.2. [id number]. [id number] 2022 Medicaid 2022 Medicaid MEDICAID [facility] MEDICAID [id number] 2022-Present [phone] [address] [place] [address] Medicaid [id number]. [id number] 2014 Medicaid [id number] 2014 Medicaid [id number] 1979 Unknown [id number] 2.16.840.1.446008.3.579.2. 668 1979 Unknown [id number] 2.16840.1.292875.3.579.2. 204 1979 Unknown [id number] 2.16840.1.614082.3.579.2. 204 1979 Unknown [id number] 2.16.840.1.025959.3.579.2. 651 1979 Unknown [id number] 2.16.840.1.220222.3.579.2. 903 1979 Unknown [id number] 2.16.840.1.632083.3.579.2. 903 1979 Unknown [id number] 2.16.840.1.733699.3.579.2. 1979 Unknown [id number] 2.16.840.1.170347.3.579.2. 1979 Unknown [id number] 2.16840.1.871783.3.579.2. 1979 Unknown [id number] 2.16840.1.766528.3.579.2 1979 Unknown [id number] 2.840.1.121481.3.579.2. 1979 Unknown [id number] 2.840.1.471906.3.579.2. 1979 Unknown [id number] 2.840.1.029018.3.579.2. 1979 Unknown [id number] 2.16840.1.704646.3.579.2. 1979 Unknown [id number] 2.840.1.028976.3.579.2. 1979 Unknown [id number] 2.16840.1.484521.3.579.2. 1979 Unknown [id number] 2.16840.1.802037.3.579.2. 1979 Unknown [id number] 2.16840.1.966249.3.579.2. 1979 Unknown [id number] 2.16840.1.628895.3.579.2 1979 Unknown [id number] 2.16.840.1.958571.3.579.2. 627 Unknown [id number] Unknown [id number] 2.16.840.1.498897.3.579.2. 462 Unknown [id number] 2.16.840.1.835094.3.579.2. 462 Unknown [id number] 2.16.840.1.520467.3.579.2. 462 Unknown [id number] 2.16.840.1.413869.3.579.2. 462 Unknown [id number] 2.16.840.1.815738.3.579.2. 462 Unknown [id number] 2.16.840.1.079719.3.579.2. 462 Unknown [id number] 2.16.840.1.287481.3.579.2. 462 Social History Date Type Detail Facility Start: 10-23-2016 End: 02-17-2025 Tobacco smoking status Smokes tobacco daily (finding) [facility] Sex Assigned At Sex [facility] Start: 10-19-2021 End: 08-27-2023 Tobacco smoking status Light tobacco smoker (finding) [facility] Start: 11-14-2021 End: 07-01-2022 Tobacco smoking status Heavy tobacco smoker (finding) [facility] Start: 01-01-2022 End: 06-01-2023 Tobacco smoking status AKIS Unknown if ever smoked [facility] Start: 09-23-2018 Cigarettes [facility] Start: 1980 Sex Assigned At Male [facility] Start: 10-23-2016 End: 08-13-2024 Cigarettes smoked current (pack per day) - Reported 2 [facility] Start: 10-23-2016 End: 08-13-2024 Tobacco use and exposure Smokeless tobacco non-user [facility] Start: 01-03-2022 End: 09-16-2023 Alcohol intake Current non-drinker of alcohol (finding) [facility] Start: 1980 Sex Assigned At Not on file [facility] Start: 12-24-2021 End: 06-29-2024 Exposure to SARS-CoV-2 (event) Not sure [facility] Start: 03-08-2022 Alcohol intake Ex-drinker (finding) [facility] Work Phone: History of tobacco use Cigarette Smoker [facility] [employer] Work Phone: Start: 07-07-2023 End: 08-13-2024 Tobacco use panel [facility] National Score (1-10 0), lower number is lower risk 67 [facility] Start: 06-25-2023 Gender identity Identifies as male gender (finding) [facility] Start: 06-25-2023 Sexual orientation Heterosexual (finding) [facility] Start: 09-16-2023 Tobacco Comment Currently smokes 0.5 ppd [facility] Start: 09-16-2023 Alcohol Comment rare [facility] Start: 06-29-2024 End: 08-13-2024 Alcoholic beverage intake Lifetime non-drinker (finding) [facility] Work Phone: History of tobacco use Passive smoker [facility] Work Phone: Start: 08-24-2024 End: 09-19-2024 Sex Male (finding) [facility] Medical Equipment Procedure Code Equipment Code [...] Assessment Result Facility 05-16-2024 Functional Status Independent [facility] 05-16-2024 Functional Status Standard Safet y ID band on, Allergy Band on, Call device within reach, Bed in low position, Wheels locked, Visitor at bedside, Safety level maintained [facility] 09-11-2023 Functional Status Independent [facility] 08-27-2023 Functional Status Awake, Up ad loc [facility] 08-27-2023 Functional Status Maintained, Less than 8 hours [facility] 06-28-2023 Functional Status Room check performed [facility] 06-28-2023 Functional Status [facility] 06-08-2023 Functional Status Independent [facility] 06-08-2023 Functional Status Ambulation in Zamorano, Ambulation in Room [facility] 05-16-2023 Functional Status Standard Safet y ID band on, Allergy Band on, Call device within reach, Bed in low position, Wheels locked, Upper/Half-Length side-rails up, personal items within reach, Visitor at bedside [facility] 02-12-2023 Functional Status ID band on, Allergy Band on, Call device within reach, Bed in low position, Wheels locked, Bedside Cart Locked, Visitor at bedside, Safety level maintained [facility] 02-12-2023 Functional Status [facility] 10-28-2022 Functional Status ID band on, Allergy Band on [facility] 10-28-2022 Functional Status ID band on, Allergy Band on, Call device within reach, Bed in low position, Wheels locked, Upper/Half-Length side-rails up, Phone within reach, personal items within reach, Bedside Cart Locked, Visitor at bedside [facility] 10-21-2022 Functional Status ID band on, Allergy Band on, Safety level maintained [facility] 09-12-2022 Functional Status Ambulating in zamorano [facility] 09-05-2022 Functional Status Sensory Deficits None A [facility] 08-28-2022 Functional Status Standard Safet y ID band on, Call device within reach, Bed in low position, Wheels locked, Upper/Half-Length side-rails up, Bedside Cart Locked, Safety level maintained [facility] 08-18-2022 Functional Status Independent [facility] 08-18-2022 Functional Status Room check performed [facility] 07-22-2022 Functional Status Up ad loc [facility] 07-22-2022 Functional Status Standard Safet y ID band on, Allergy Band on, Call device within reach, Bed in low position, Wheels locked, Visitor at bedside [facility] 07-18-2022 Functional Status abdominal bind er on, ice on [facility] 07-18-2022 Functional Status Maintained [facility] 07-15-2022 Functional Status Activity Pillo tance Independent [facility] 07-15-2022 Functional Status Standard Safet y ID band on, Allergy Band on, Call device within reach, Bed in low position, Wheels locked, Upper/Half-Length side-rails up, Phone within reach, personal items within reach, Safety level maintained [facility] 07-09-2022 Functional Status Sensory Deficits None A [facility] 06-27-2022 Functional Status Room check performed [facility] 06-27-2022 Functional Status [facility] 06-01-2022 Functional Status Ambulating in zamorano, Ambulating in room, Awake [facility] 05-31-2022 Functional Status Standard Safet y ID band on, Allergy Band on, Call device within reach, Bed in low position, Wheels locked, Upper/Half-Length side-rails up, personal items within reach [facility] 05-27-2022 Functional Status [facility] Functional Status Room check performed [facility] 03-14-2022 Functional Status [facility] 12-21-2021 Functional Status Standard Safet y ID band on, Call device within reach, Bed in low position, Wheels locked, Upper/Half-Length side-rails up, Bedside Cart Locked, Safety level maintained [facility] 12-21-2021 Functional Status [facility] 11-30-2021 Functional Status Standard Safet y ID band on, Call device within reach, Bed in low position [facility] 11-14-2021 Functional Status Sensory Deficits None A [facility] 10-06-2021 Functional Status Wandy [facility] 10-06-2021 Functional Status Wandy [facility] Mental Status Date Assessment Result Facility 05-16-2024 Mental Status Orientation Oriented x 4 [facility] 05-16-2024 Mental Status [facility] 09-11-2023 Mental Status Orientation Oriented x 4 [facility] 08-27-2023 Mental Status Oriented x 4 [facility] 08-27-2023 Mental Status [facility] 06-28-2023 Mental Status Orientation Oriented x 4 [facility] 06-28-2023 Mental Status [facility] 06-08-2023 Mental Status Orientation Oriented x 4 [facility] 06-08-2023 Mental Status [facility] 05-16-2023 Mental Status Orientation Oriented x 4 [facility] 02-12-2023 Mental Status Orientation Oriented x 4 [facility] 02-12-2023 Mental Status [facility] 10-28-2022 Mental Status Orientation Oriented x 4 [facility] 10-28-2022 Mental Status Oriented x 4 [facility] 10-21-2022 Mental Status Orientation Oriented x 4 [facility] 09-12-2022 Mental Status Orientation Oriented x 4 [facility] 09-05-2022 Mental Status Orientation Oriented x 4 [facility] 08-28-2022 Mental Status Orientation Oriented x 4 [facility] 08-18-2022 Mental Status Orientation Oriented x 4 [facility] 08-18-2022 [facility] 07-22-[facility] Mental Status Orientation Oriented x 4 [facility] 07-22-2022 Mental Status [facility] 07-18-2022 Mental Status Orientation Oriented x 4 [facility] 07-18-2022 Mental Status [facility] 07-15-2022 Mental Status Orientation Oriented x 4 [facility] 07-15-2022 Mental Status [facility] 06-28-2022 Mental Status Orientation Oriented x 4 [facility] 06-27-2022 Mental Status [facility] 06-01-2022 Mental Status Orientation Oriented x 4 [facility] 05-31-2022 Mental Status [facility] 05-27-2022 Mental Status Orientation Oriented x 4 [facility] 03-15-2022 Mental Status Orientation Oriented x 4 [facility] 03-14-2022 Mental Status [facility] 12-21-2021 Mental Status Oriented x 4 [facility] 12-21-2021 Mental Status [facility] 11-30-2021 Mental Status Orientation Oriented x 4 [facility] 11-30-2021 [facility] 10-06-2021 Mental Status [facility] 10-06-2021 Mental Status [facility] Clinical Notes 10-06-2021 to 12-29-2024 Note Date & Type Note Facility 12-29-2024 Discharge summary [facility] 12-29-2024 Radiology Diagnostic study note [facility] Imaging Services [address] [place] [address] Abdomen/Pelvis W IV Cont ONLY MR#: [id number] Acct: [id number] Name: PATRICK KOROMA Rep #: [id number] : 1980 M 44 From: Desirae Cruz MD PCP: ERIC Anaya Status: REG ER Study:Abdomen/Pelvis W IV Cont ONLY Date of E xam: 12/29/24 Exam# [id number] Ordering Dr: Shay Cordero MD PROCEDURE: ABDOMEN/PELVIS [...] containing omental fat, without bowel. Reading Location: [place] [address] CC: ERIC Starkey; Dr. Justin Cordero MD ~ Sales And Service Engineer: Signed [facility] 12-29-2024 Discharge summary Note Date/Time December 29, 2024 10:50pm [facility] Medical Records Department [address] [place] [address] Emergency Department Summary 12/29/24 MR#: [id number] Acct: [id number] Name: PATRICK KOROMA Rep #:[id number] : 1980 44 From: Justin Cordero MD [...] did his other hernia repair surgeries in [place] he was told by him he could do it. He referred himto a surgeon in [place] at and they also told him they were not able to help him. Patient denies any fever. No dysuria. Denies any nausea, vomiting or diarrhea. No back pain. Prior similar symptoms: Yes Recent Illness/Hospitalization: No PFSH PFS Medical History Seroma after [...] obstruction. I have referred him to the [facility] they have general surgeons here that her hernia installation and repair technician to see if they can offer him [...] % (Auto) 61.9 Lymph % (Auto) 30.4 [place] % (Auto) 5.1 Eos % (Auto) 1.7 [...] containing omental fat, without bowel. Reading Location: [place] [address] Discharge Plan Triage Chief Complaint: Abd Pain ED Provider: Justin Cordero Dx/Rx/DC Orders Clinical Impression: Abdominal pain, Ventral hernia Instructions: ED Hernia (Adult) Prescriptions: No Action NK Primary Care Provider: Viola Starkey NP Referrals: Viola Starkey NP, OXYGEN THERAPY TEACHER-C [Primary Care Provider] - Activity Restrictions/Additional Instructions: Call the [facility]. Get the name and office number of the general surgeons there that are hernia installation and repair technician. Call their office to get an appointment. Motrin and Tylenol for pain. Print Language: Cypriot Disposition Disposition: Home, Self Care What to do if you have Problems For any increased pain, shortness of breath, bleeding, nausea or vomiting, chestpain, or any unexpected problems, contact your Primary Care Provider. Call [facility] ([phone]) or report to the closest Emergency Room. Call 911 if necessary. 12/29/242249 <Electronically signed by Justin Cordero MD> Cosigner Signature (if applicable): CC: YULI-C Viola Starkey ~ Signed [facility] Work Phone: 1(215) 603-448906-26-2025 Radiology Diagnostic study note [facility] Imaging Services [address] [place] [id number] Abdomen/Pelvis W IV Cont ONLY MR#: [id number] Acct: [id number] Name: PATRICK KOROMA Rep #: [id number] : 1980 M 44 From: Abb myrtle Mena MD PCP: FREDDY AnayaC Status: REG ER Study:Abdomen/Pelvis W IV Cont ONLY Date of E xam: 12/09/24 Exam# [id number] Ordering Dr: Maru Baker DO PROCEDURE: ABDOMEN/PELVIS [...] of the stomach, probably gastritis. [facility] CC: ERIC Starkey; DO Josh Mendoza Sales And Service Engineer: Signed [facility]06-24-2025 Discharge summary [facility] Medical Records Department [address] [place] [address] Emergency Department Summary 12/07/24 MR#: [id number] Acct: [id number] Name: PATRICK KOROMA Rep #:[id number] : 1980 44 From: Guevara Choi MD PCP: ERIC Anaya Status:REG ER Location: ED HPI History of Present Illness Chief Complaint: Upper Extremity Injury Informant: patient Narrative Narrative: During tear [place], patient states he smashed his right thumb between 2 metal poles on accident. Ewsak-msbc-dsijssme. [facility] Medical History Seroma after procedure Influenza [...] abnormality of the right hand. Reading Location: [id number] Discharge Plan Triage Chief Complaint: Upper Extremity Injury ED Provider: Guevara Choi Dx/Rx/DC Orders Clinical Impression: Contusion of right thumb with damage to nail, initial encounter Instructions: ED Finger or Toe Contusion Prescriptions: No Action NK Primary Care Provider: Viola Starkey NP Referrals: Viola Starkey NP, OXYGEN THERAPY TEACHER-C [Primary Care Provider] - 10-14 Days if not better Print Language: Cypriot Disposition Disposition: Home, Self Care What to do if you have Problems For any increased pain, shortness of breath, bleeding, nausea or vomiting, chestpain, or any unexpected problems, contact your Primary Care Provider. Call [facility] ([phone]) or report tothe closest Emergency Room. Call 911 if necessary. 12/07/24 0013 Cosigner Signature (if applicable): CC: ERIC Starkey ~ Signed [facility]06-23-2025 Radiology Diagnostic study note [facility] Imaging Services [address] [place] [address] Hand Min 3 Views MR#: [id number] Acct: [id number] Name: PATRICK KOROMA Rep #: [id number] : 1980 M 44 From: Viki Ba MD PCP: ERIC Anaya Status: PRE ER Study:Hand Min 3 Views Date of Exam: Exam# [id number] Ordering Dr: Curtis Choi MD PROCEDURE: HAND MIN 3 VIEWS 12/06/2024 REASON FOR EXAM: INJURY TECHNIQUE: HAND MIN 3 VIEWS COMPARISON: None FINDINGS: No fracture or traumatic malalignment. Joint spaces are predominantly maintained. Bone mineral density is subjectively normal. The soft tissues are unremarkable. RAD/Hand Min 3 Views IMPRESSION: No acute osseous abnormality of the right hand. Reading Location: [facility] CC: ERIC Starkey; Dr. Guevara Choi MD ~ Sales And Service Engineer: Signed [facility]04-06-2025 Discharge summary [facility] Medical Records Department [address] [place] [address] Emergency Department Summary 09/19/24 MR#: [id number] Acct: [id number] Name: PATRICK KOROMA Rep #:[id number] : 1980 44 From: Brian Maldonado MD PCP: ERIC Anaya Status:REG ER Location: ED HPI History of Present Illness Chief Complaint: Upper Extremity Injury Narrative Narrative: 44-year-old male, cctcu-rjcw-zctlhesw, presents with injury to his right shoulder [...] raise his right arm. Denies other injuries. [facility] Medical History Seroma after procedure Influenza [...] clavicle and shoulder pain worse with movement. Jwkbc-iqka-tzougrow. Denies hitting of his head or loss [...] AC joint separation. Patient was given 1 [place] tablet here for analgesia and x-rays obtained [...] not improving. I feel he can take plll-wlm-sgihuvy medications for analgesia. Return instructions to the [...] Staff] - 1 Week if not improving StarkeyViola cordero NP, NP-C [Primary Care Provider] - Activity Restrictions/Additional Instructions: You may wear the sling for comfort but exercise your right shoulder at least 3 times a day to prevent frozen shoulder. Cohv-izd-cohmana medications as needed for pain. Follow-up with orthopedics if not improving. Print Language: Cypriot Disposition Disposition: Home, Self Care What to do if you have Problems For any increased pain, shortness of breath, bleeding, nausea or vomiting, chestpain, or any unexpected problems, contact your Primary Care Provider. Call [facility] ([phone]) or report tothe closest Emergency Room. Call 911 if necessary. 09/19/242224 Cosigner Signature (if applicable): CC: ERIC Starkey ~ Signed [facility]04-06-2025 Radiology Diagnostic study note [facility] Imaging Services [address] [place] [address] Shoulder min 2 Views MR#: [id number] Acct: [id number] Name: PATRICK KOROMA Rep #: [id number] : 1980 M 44 From: Zuly Tena DO PCP: ERIC Anaya Status: REG ER Study:Shoulder min 2 Views Date of Exam: 09/19/24 Exam# [id number] Ordering Dr: Brian Maldonado MD PROCEDURE: SHOULDER [...] ERIC Starkey; Dr. Brian Maldonado MD ~ Sales And Service Engineer: Signed [facility]04-06-2025 Radiology Diagnostic study note [facility] Imaging Services [address] [place], [place] [id number] Clavicle MR#: [id number] Acct: [id number] Name: PATRICK KOROMA Rep #: [id number] : 1980 M 44 From: Zuly Tena DO PCP: ERIC Anaya Status: REG ER Study:Clavicle Date of Exam: 09/19/24 Exam# [id number] Ordering Dr: Brian Maldonado MD PROCEDURE: CLAVICLE 09/19/2024 REASON FOR EXAM: TRAUMA TECHNIQUE: Two views of the right clavicle were obtained COMPARISON: None FINDINGS: Bones: No acute fracture. Joints: Joint spaces are preserved. Soft tissues: No soft tissue abnormality. RAD/Clavicle IMPRESSION: NO EVIDENCE OF CLAVICLE FRACTURE Reading Location: [facility] CC: OXYGEN THERAPY TEACHER-C Viola Starkey; Dr. Brian Maldonado MD ~ Sales And Service Engineer: Signed [facility]04-06-2025 Discharge summary Author Brian Maldonado [facility] Note Date/Time September 19, 2024 10:2 5pm [facility] Medical Records Department [address] [place] [address] Emergency Department Summary 09/19/24 MR#: [id number] Acct: [id number] Name: PATRICK KOROMA Rep #:[id number] : 1980 44 From: Brian Maldonado MD PCP: ERIC Anaya Status:REG ER Location: ED HPI History of Present Illness Chief Complaint: Upper Extremity Injury Narrative Narrative: 44-year-old male, rglbk-rciu-rjvahhoq, presents with injury to his right shoulder [...] raise his right arm. Denies other injuries. [facility] Medical History Seroma after procedure Influenza [...] clavicle and shoulder pain worse with movement. Ygwje-elmi-hkcdqdih. Denies hitting of his head or loss [...] AC joint separation. Patient was given 1 [place] tablet here for analgesia and x-rays obtained [...] not improving. I feel he can take lzro-tyt-kxhbwhs medications for analgesia. Return instructions to the [...] Week if not improving Viola Starkey NP, OXYGEN THERAPY TEACHER-C [Primary Care Provider] - Activity Restrictions/Additional Instructions: You may wear the sling for comfort but exercise your right shoulder at least 3 times a day to prevent frozen shoulder. Tpgk-bwz-fwrhgjf medications as needed for pain. Follow-up with orthopedics if not improving. Print Language: Cypriot Disposition Disposition: Home, Self Care What to do if you have Problems For any increased pain, shortness of breath, bleeding, nausea or vomiting, chestpain, or any unexpected problems, contact your Primary Care Provider. Call [facility] ([phone]) or report to the closest Emergency Room. Call 911 if necessary. 09/19/242224 <Electronically signed by Brian Maldonado MD> Cosigner Signature (if applicable): CC: ERIC Starkey ~ Signed [facility] Work Phone: [phone]) 327-456603-11-2025 Radiology Diagnostic study note [facility] Imaging Services [address] [place] [address] Shoulder min 2 Views MR#: [id number] Acct: [id number] Name: PATRICK KOROMA Rep #: [id number] : 1980 M 44 From: Shahbaz Johnson DO PCP: Care Physician,No Primary Status: PRE ER Study:Shoulder min 2 Views Date of Exam: 08/24/24 Exam# [id number] Ordering Dr: Provider ,Ed P. PROCEDURE: Right shoulder radiographs REASON FOR EXAM: PAIN, LOSS OF MOBILITY TECHNIQUE: Four views of the right shoulder COMPARISON: None. FINDINGS: See impression RAD/Shoulder min 2 Views IMPRESSION: Negative for acute fracture or malalignment. 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 Mildacromioclavicular joint osteoarthritis. Reading Location: [facility] CC: ED PHYSICIAN PROVIDER; No Primary Care Physician ~ Sales And Service Engineer: Signed [facility]02-28-2025 History of Present illness Narrative* Stephon [...] <40). Stephon Benavides MD documented in this [facility] Work Phone: [phone]) 722-902401-14-2025 History of Present illness Narrative* Jonathan Gonzalez MD - 06/29/2024 2:45 PM EST History Of Present Illness : Patrick Cali is a 44 y.o. male who presents as a self-referral for second opinion with regard to his abdominal wall. The patient lives in [facility]. The patient has had multiple abdominal operations in the past. He had a laparoscopic appendectomy in 2000 in [place]. He thereafter had 3 operations for abdominal wall hernias by Dr. Aaron Duque at [facility]. In 2016 and 2018, he underwent [...] abdomen pelvis was in May 09 at [facility] in [place]. The patient has noted recurrent fullness in the mid abdomen, with associated sharp pain especially at night, since March 2024.. He denies other symptoms such as nausea vomiting diarrhea constipation changes bowel habits or blood in the stool. Patient is engaged to be to Afshan who accompanied him to the office. He has 4 children. 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 The patient [...] Present- Headaches, Numbness, Tingling, Seizures, Stroke, INTELLIGENCE OPERATIONS SPECIALIST Shunt and Weakness. Psychiatric: Not Present- Anxiety, [...] recommendations and management plan documented in this [facility] Work Phone: 1(886) 975-383712-02-2024 Hospital Discharge instructions Patient Education 05/16/2024 22:58:38 [...] or as directed by your healthcare provider [phone] [employer]. [address] [place] [address]. All rights reserved. This information is not intended as a substitute for professional medical care. Always follow yourhealthcare professional's instructions. Follow Up Care 05/16/2024 21:33:35 With:AARON DUQUE MD, Surgery Address: [address] [facility] [place] [address]- [phone] When:2-4 days [facility] 12-01-2024 Emergency department Discharge summary Discharge Instructions Thank you for allowing [facility] to assist you with your healthcare needs. [...] MD, Surgery When:Within 2-4 days Where:[address] [facility] [place] [address] [phone] Allergies Keflex Keppra Rash Tape, Paper Rash [...] or as directed by your healthcare provider [phone] [employer]. [address] [place] [address], [place] [address]. All rights reserved. This information is not intended as a substitute for professional medical care. Always follow yourhealthcare professional's instructions. Additional Information VACCINATE! IT SAVES LIVES! Members of the community who have not yet received the COVID-19 vaccine and would like to receive it can visit one of [facility] vaccine clinics. There are many vaccine clinic locations within the [facility]. For locations and available times, please visit www.gettheshot.coronavirus.[place].gov/. It is important to note that some COVID mobile vaccine clinics are held outdoors and may be canceled in rainy or stormy conditions. To learn more about pediatric vaccinations (ages 5-11), we invite you to visit the [facility] webpage. https://www.[facility].org/pages/3862-Dydnl-Zsocfoqnaqj-Wrzgozybly-Jfuoo-Sxm stions.htmlTo learn more about the COVID-19 vaccine, we invite you to visit the CDC website for a list of frequently asked questions. https://www.cdc.gov/coronavirus/2019-ncov/vaccines/faq.html [facility] One[facility] Patient Portal Access Instructions: Stay connected with your healthcare team and access your personal medical information anytime with the [facility] One[facility] Patient Portal. If you would like a full copy of your medical records please contact the [facility] Medical Records Department Friday through Friday between 8a.m. and 4:30p.m. Please follow the directions below to access the portal: 1.Access the email account you provided upon registration to the hospital.2.Look for an invitation email from [facility].3.Open the email and access the invitation link: Accept Invitation to [facility]4.Fill in the required vegas to create your account. Sign into [email or web address] with your username and password that you [...] you will allow to register on the [facility] Patient Portal for access to your information. You can also access the [facility] Patient Portal on the Search[employer]ise Commerce yen. Simply click on Health Records under PlatformQ and then click on the Sense Platform logo. HOW TO SAFELY DISPOSE OF PRESCRIPTION [...] Call your local pharmacy or go to http://[employer].Score The Board/7T9Sn3j to find one close to you.3.Make use of household items: Use cat litter or old coffee grounds to dispose medications if other options arenot available. Mix your drugs with these household products, seal them in an airtight container andthrow it into the garbage. Call [facility]: [phone] to be sure your drugs can be [...] been reviewed and explained to me and I,ANAMARIA KOROMAOTHY Cesar understand my current condition and have read and understand these discharge instructions. I have received a written copy of the plan/instructions. If I have questions, I am aware that I should contact my doctor. Patient/Distribution Operations Supervisor Signature: Date/Time: Relationship to Patient: Witness Name/Signature: Date/Time: [facility]12-01-2024 Emergency department Discharge summary Discharge Instructions Thank you for allowing [facility] to assist you with your healthcare needs. [...] Surgery When:Within 2-4 days Where:[address] [facility] [place] [address]- [phone] Allergies Keflex Keppra Rash Tape, Paper Rash [...] or as directed by your healthcare provider [phone] [employer]. [address] [place] [address], [place] [address]. All rights reserved. This information is not intended as a substitute for professional medical care. Always follow yourhealthcare professional's instructions. Additional Information VACCINATE! IT SAVES LIVES! Members of the community who have not yet received the COVID-19 vaccine and would like to receive it can visit one of [facility] vaccine clinics. There are many vaccine clinic locations within the [facility]. For locations and available times, please visit www.gettheshot.coronavirus.[place].gov/. It is important to note that some COVID mobile vaccine clinics are held outdoors and may be canceled in rainy or stormy conditions. To learn more about pediatric vaccinations (ages 5-11), we invite you to visit the [employer] webpage. https://www.Instamours.org/pages/8027-Rxwrw-Himdwtdkqck-Zaalrefyic-Zywhf-Wrq stions.htmlTo learn more about the COVID-19 vaccine, we invite you to visit the CDC website for a list of frequently asked questions. https://www.cdc.gov/coronavirus/2019-ncov/vaccines/faq.html [facility] Patient Portal Access Instructions: Stay connected with your healthcare team and access your personal medical information anytime with the [facility] Patient Portal. If you would like a full copy of your medical records please contact the [facility] Medical Records Department Friday through Friday between 8a.m. and 4:30p.m. Please follow the directions below to access the portal: 1.Access the email account you provided upon registration to the hospital.2.Look for an invitation email from [facility].3.Open the email and access the invitation link: Accept Invitation to [facility]4.Fill in the required vegas to create your account. Sign into [email or web address] with your username and password that you [...] you will allow to register on the [facility] Patient Portal for access to your information. You can also access the [facility] Patient Portal on the Piper. Simply click on Health Records under HealthData and then click on the Sense Platform logo. HOW TO SAFELY DISPOSE OF PRESCRIPTION [...] Call your local pharmacy or go to http://[employer].Score The Board/1G3Nl7u to find one close to you.3.Make use of household items: Use cat litter or old coffee grounds to dispose medications if other options arenot available. Mix your drugs with these household products, seal them in an airtight container andthrow it into the garbage. Call [facility]: [phone] to be sure your drugs can be [...] aware that I should contact my doctor. Patient/Distribution Operations Supervisor Signature: Date/Time: Relationship to Patient: Witness Name/Signature: Date/Time: [facility]12-01-2024 Note ORIGINAL EXAMINATION: CT OF THE ABDOMEN [...] Sign Date: 05/16/2024 10:27:09 PM Ordering Provider: [facility]05-07-2024 Telephone encounter Note* Telephone Encounter - [...] Dr. Hannah. Christy Rodrigez RN BSN Nurse Erp Implementation Consultant [facility] Work Phone: [phone] Miscellaneous Notes* Telephone Encounter - Christy Rodrigez [...] Dr. Hannah. Christy Rodrigez RN BSN Nurse Erp Implementation Consultant * Telephone Encounter - Christy Rodrigez RN - 10/10/2023 10:21 AM EDT Neuro SPINE CARE COORDINATION QUICK NOTE Dr. Borrero received referral from Dr. Richardson. Ordered placed for spine med injection with Dr. Hannah. Called patient to advise. Received VM message 'calling restrictions that have prevented the completion of the call' MYC message sent. Christy Rodrigez RN BSN Nurse Erp Implementation Consultant [facility] Telephone encounter Note * Telephone Encounter - Christy Rodrigez RN - 10/10/2023 10:21 AM EDT Neuro SPINE CARE COORDINATION QUICK NOTE Dr. Borrero received referral from Dr. Richardson. Ordered placed for spine med injection with Dr. Hannah. Called patient to advise. Received VM message 'calling restrictions that have prevented the completion of the call' MYC message sent. Christy Rodrigez RN BSN Nurse Erp Implementation Consultant [facility]04-02-2024 History and physical note* Diana Graham [...] requiring medication, no history of angina, CHF, MT, cardiac surgery or stents. Denies rest pain, [...] 362 QTC Calculation (Bazett) 457 Calculated P Cherry 30 Calculated R Cherry 19 Calculated T Cherry 18 Impression NORMAL SINUS RHYTHM NORMAL ECG No results found for this or any previous visit (from the past 22396 hour(s)). Instructions Given to Patient: Instructions located in the after visit summary. Patient given verbal and written preop instructions and voices comprehension and compliance. SIGNATURE: Diana Graham PA-C PATIENT NAME: Patrick Koroma DATE: September 15, 2023 TIME: 1:59 PM PAGER/CONTACT #: documented in [facility] Instructions* Patient Instructions* Diana Graham PA-C - 09/15/2023 1:58 PM EDT PATIENT PREOPERATIVE INSTRUCTIONS Jese Richardson* has scheduled you for your procedure at this surgery center: [facility] Scheduling Office: [phone] [address] [place] [address]. Please read below carefully for your personalized [...] Procedures: - YOU MUST HAVE A RESPONSIBLE ROLL HAULER TAKE YOU HOME. A ACADEMY DIRECTOR OR TREATER CANNOT BE MADE A RESPONSIBLE ROLL HAULER. - We recommend that a responsible person [...] call the Friday before. Your surgeon s mileage clerk will tell you what time to call the office. - If you have not reached the departmental mileage clerk by 5 P.M., call [phone] after 5 P.M. the day before your surgery. Please be aware that emergency situations arise, which may delay or change your surgical time. If this happens, we will notify you as soon as possible and regret any inconvenience. If you already have an Advance Directive, please fax a copy to [phone] or email to for it to be [...] day. Diana Graham PA-C [facility] Hospital Discharge instructions Patient Education 09/11/2023 [...] foods again, start with small amounts of wskv-os-gggtpn, low- fat foods. These include apple sauce, [...] increase stomach acid. Don't use aspirin or uudu-idb-snpabyy pain and fever medicines, if possible. This includes nonsteroidal anti-inflammatory drugs (NSAIDs). Lose excess weight. Finish eating at least 2 hours before you go to bed or lie down. Raise the head of your bed. [phone] [employer] [facility]. [address] [place] [address]. All rights reserved. This information is not intended as a substitute for professional medical care. Always follow yourhealthcare professional's instructions. Follow Up Care 09/11/2023 18:01:14 With:VIOLA STARKEY Address: [address] [place] [address] [phone] When:2-4 days [facility] 03-28-2024 Note Discharge Instructions Thank you for allowing [facility] to assist you with your healthcare needs. The following is importantdischarge information regarding your hospital visit. Diagnosis from Today's Visit Abdominal pain Abdominal pain What to Do Next Instructions from Your Care Team No qualifying data available. Post Acute Orders No qualifying data available. You Need to Schedule the Following Appointments Follow Up with VIOLA STARKEY When Within 2-4 days Where: [address] [place] [address]- [phone] Allergies Keflex Keppra (Rash) Tape, Paper (Rash) [...] foods again, start with small amounts of vfvm-bo-vgsyei, low- fat foods. These include apple sauce, [...] increase stomach acid. Don't use aspirin or jtvw-cfo-nxkgrwf pain and fever medicines, if possible. This includes nonsteroidal anti-inflammatory drugs (NSAIDs). Lose excess weight. Finish eating at least 2 hours before you go to bed or lie down. Raise the head of your bed. [phone] [employer] [facility]. [address] [place] [address], [place] [address]. All rights reserved. This information is not intended as a substitute for professional medical care. Always follow yourhealthcare professional's instructions. Additional Information VACCINATE! IT SAVES LIVES! Members of the community who have not yet received the COVID-19 vaccine and would like to receive it can visit one of [facility] vaccine clinics. There are many vaccine clinic locations within the [facility]. For locations and available times, please visit www.gettheshot.coronavirus.[place].gov/. It is important to note that some COVID mobile vaccine clinics are held outdoors and may be canceled in rainy or stormy conditions. To learn more about pediatric vaccinations (ages 5-11), we invite you to visit the [facility] webpage. https://www.[facility].org/pages/4013-Xbndc-Podhhhvbwwq-Mywtrlinvx-Eferm-Yid stions.htmlTo learn more about the COVID-19 vaccine, we invite you to visit the CDC website for a list of frequently asked questions. https://www.cdc.gov/coronavirus/2019-ncov/vaccines/faq.html [facility] Patient Portal Access Instructions: Stay connected with your healthcare team and access your personal medical information anytime with the [facility] Patient Portal. If you would like a full copy of your medical records please contact the [facility] Medical Records Department Friday through Friday between 8a.m. and 4:30p.m. Please follow the directions below to access the portal: 1.Access the email account you provided upon registration to the hospital.2.Look for an invitation email from [facility].3.Open the email and access the invitation link: Accept Invitation to [facility]4.Fill in the required vegas to create your account. Sign into [email or web address] with your username and password that you [...] you will allow to register on the [facility] Patient Portal for access to your information. You can also access the [facility] Patient Portal on the Searchandise [employer] yen. Simply click on Health Records under [employer] and then click on the Wandy logo. [...] Call your local pharmacy or go to http://[employer].Score The Board/6Q5Is1p to find one close to you.3.Make use of household items: Use cat litter or old coffee grounds to dispose medications if other options arenot available. Mix your drugs with these household products, seal them in an airtight container andthrow it into the garbage. Call [facility]: [phone] to be sure your drugs can be [...] aware that I should contact my doctor. Patient/Distribution Operations Supervisor Signature: Date/Time: Relationship to Patient: Witness Name/Signature: Date/Time: [facility]03-13-2024 Evaluation + Plan noteExtracted from: Title:Clinical Document Author:REYES MOORE ate:08/27/23 [place] ADMISSION HISTORY AN D PHYSICIAL CHIEF COMPLAINT: Colorectal cancer screening HISTORY OF PRESENT ILLNESS: Colorectal cancer screening, high risk, family history of colon cancer REVIEW OF SYSTEMS: Constitutional: denies weight loss Cardiovascular:denies chest pain, palpitations Respiratory:denies shortness of breath Gastrointestinal:no abd pain Musculoskeletal: no arthralgias Skin: no rashes ACTIVE PROBLEMS: (13) Acid reflux (871106066) 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 ([id number]) Electric shock (1373132576) Fall (0033416) Family history of colon cancer (377025357) Full dentures (492114484) Pain in the abdomen (32486163) Postprocedural hematoma of skin and subcutaneous tissue following other procedure (210936560) Screening for colon cancer (559729997) Seizure (285939616) TIA (020217981) Tobacco use (1063752584) Umbilical hernia (2553766797) MEDICATIONS: Active Inpt Meds: None Active PRN [...] IgG 08/07/23 * Complete Metabolic Panel 08/07/23 [facility] 03-13-2024 Hospital Discharge instructions Patient Education 08/27/2023 [...] before eating solid foods. General instructions Take juuh-gey-twuudgc and prescription medicines only as told by [...] 09/22/2016 Document Revised: 08/31/2018 Document Reviewed: 09/22/2016 [employer] Patient Education 2020 Narr8. 08/27/2023 10:26:35 Colonoscopy, Adult, Care After Colonoscopy, [...] a slower pace than normal. ?Eat soft, epkl-is-rqnkhs foods. Take bwbz-dzq-rphisca or prescription medicines only as told by [...] 01/14/2005 Document Revised: 03/25/2018 Document Reviewed: 08/13/2016 [employer] Patient Education 2020 Narr8. Follow Up Care 08/22/2023 07:36:51 With:REYES MOORE DO, Clinical Gastroenterology Address: [address] [facility] [place] [address]- [phone] When:Within 1 Year(s) Comments:Repeat colonoscopy in 1 year. Will need extra bowel prep. With:VIOLA STARKEY Address: [address] [place] [address]- [phone] When: Unknown [facility] 03-13-2024 Note Discharge Instructions Thank you for allowing [facility] to assist you with your healthcare needs. The following is importantdischarge information regarding your hospital visit. Your Care Team VIOLA STARKEY Dr. Jak What to do next Instructions From Your Doctor Colonoscopy in 1 year; will need further given residual stool this year Follow Up Appointments Follow Up with REYES MOORE DO, Clinical Gastroenterology When In 1 year Why: Repeat colonoscopy in 1 year. Will need extra bowel prep. Where: [address] [facility] [place] [address] [phone] Follow Up with VIOLA STARKEY When Where: [address] [place] [address]- [phone] The Following Activity and Diet Have Been [...] before eating solid foods. General instructions Take wonc-dfp-oqbnsrn and prescription medicines only as told by [...] 09/22/2016 Document Revised: 08/31/2018 Document Reviewed: 09/22/2016 [employer] Patient Education 2020 [employer] Colonoscopy, Adult, Care After This sheet gives [...] slower pace than normal. ? Eat soft, rgrw-zc-ainixb foods. Take ejbf-rsy-ngitdzi or prescription medicines only as told by [...] 01/14/2005 Document Revised: 03/25/2018 Document Reviewed: 08/13/2016 [employer] Patient Education 2020 [employer] Additional Information VACCINATE! IT SAVES LIVES! Members of the community who have not yet received the COVID-19 vaccine and would like to receive it can visit one of [facility] vaccine clinics. There are many vaccine clinic locations within the [facility]. For locations and available times, please visit https://gettheshot.coronavirus.[place].gov/. It is important to note that some COVID mobile vaccine clinics are held outdoors and may be canceled in rainy or stormy conditions. To learn more about pediatric vaccinations (ages 5-11), we invite you to visit the [facility] webpage. https://www.Instamours.org/pages/6278-Uvkrl-Ucdhkanvcda-Jhdkdgnljj-Fjgpi-Bcb stions.htmlTo learn more about the COVID-19 vaccine, we invite you to visit the CDC website for a list of frequently asked questions.https://www.cdc.gov/coronavirus/2019-ncov/vaccines/faq.html [facility] Patient Portal Access Instructions: Stay connected with your healthcare team and access your personal medical information anytime with the [facility] Patient Portal. Please follow the directions below to create your [facility] account: 1.Access the email account you provided upon registration to the hospital/physician office.2.Look for an invitation email from [facility].3.Open the email and access the invitation link: AcceptInvitation to [facility].4.Fill in the required vegas to create your account. To access your account, visit [facility]/Sense PlatformOneChart. Click the blue button labeled Access Patient [...] who you will allowto register on the [facility] Patient Portal for access to your information. You can also access the [facility] Patient Portal on the [facility] Anywhere yen. Simply click on Patient Portal and then log into your account. If you would like to receive a full copy of your medical records, please contact the [facility] Medical Records Department by calling [phone], Friday through Friday between 8 a.m. and [...] Call your local pharmacy or go to http://[employer].Score The Board/6D5Py7o to find one close to you.3.Make use of household items: Use cat litter or old coffee grounds to dispose medications if other options arenot available. Mix your drugs with these household products, seal them in an airtight container andthrow it into the garbage. Call [facility]: [phone] to be sure your drugs can be [...] aware that I should contact my doctor. Patient/Distribution Operations Supervisor Signature: Date/Time: Relationship to Patient: Witness Name/Signature: Date/Time: [facility]03-13-2024 Anesthesiology Consult note Patient: PATRICK KOROMA Age: 43 years Sex: Male : 1980 Associated Diagnoses: None Author: DARIEL HITCHCOCK APRN-RADIO DIVISION CAPTAIN Assessment Postanesthesia assessment Vitals: Vital signs from [...] by DARIEL HITCHCOCK on 08/27/2023 10:18 AM [facility]03-13-2024 Anesthesiology Consult note Patient: PATRICK KOROMA Age: [...] Pain in the abdomen / SNOMED CT 35294956 / Confirmed Acid reflux / SNOMED CT 219296785 / Confirmed 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 / SNOMED CT [id number] / Confirmed Fall / SNOMED CT 1269165 / Confirmed Family history of colon cancer / SNOMED CT 919673601 / Confirmed Electric shock / SNOMED CT 9856658621 / Confirmed Full dentures / SNOMED CT 003667766 / Confirmed Screening for colon cancer / SNOMED CT 738323649 / Confirmed Postprocedural hematoma of skin and subcutaneous tissue following other procedure / SNOMED CT 294116124 / Confirmed Seizure / SNOMED CT 771942562 / Confirmed TIA / SNOMED CT 028937391 / Confirmed Umbilical hernia / SNOMED CT 9536183134 / Confirmed, Active Problems (13) Acid reflux 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 Electric shock Fall Family history of colon cancer Full dentures Pain in the abdomen Postprocedural hematoma of skin and subcutaneous tissue following other procedure Screening for colon cancer Seizure TIA Tobacco use Umbilical hernia Histories Past Medical History: Active TIA (270965699) Acid reflux (340656827) Seizure (229734716) Family History: Suicide Brother Congenital heart disease Brother Alcohol abuse Father () Stroke Mother Father () Diabetes Father () Colon cancer Father () Procedure history: Laparoscopic repair of recurrent umbilical hernia using synthetic mesh (9590223093) on 07/18/2022 at 42 Years. Comments: 07/23/2022 11:02 Leslie Quintana LPN OPEN REPAIR OF RECURRENT PERIUMBILICAL HERNIA WITH ANTERIOR COMPONENT SEPARATION WITH ONLAY MESH REPAIR Repair of recurrent ventral hernia (030962666) on 11/22/2021 at 41 Years. History of repair of umbilical hernia (0529273650) in 2019 at 39 Years. Appendectomy (598153257). Drain (02334673). 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 SPECIALIST Tobacco 4Risk Assessment: High Risk 08/27/2023 Tobacco [...] Signs(last 24 hrs) Last Charted Heart Rate Ryojlgncg69 bpm (AUG 26 09:40) YTI431 mmHg (AUG 26 09:46) DBPH 93mmHg (AUG 26 09:46) BMI42.04 (AUG 26 09:40) Measurements from flowsheet : Measurements 08/27/2023 9:40 EDT Height 184.5 cm Admission Weight 143.1 kg Weight Method Stated [place] Body Weight 79.07 kg BSA Admission 2.6 [...] Surgeon SN - CAt - Role Performed RADIO DIVISION CAPTAIN SN - CAt - Role Performed Electronic Design Engineer 1 SN - CAt - Role Performed [...] Quadrants Present Skin Temperature Warm Skin Description [place], Dry Skin Integrity Intact Skin Moisture General [...] Allergies Yes Anesthesia Extension Set Applied Yes Popcorn Attendant On Yes Colon Prep Results Good Consent [...] EDT Designated Person #1 We May Share PHI Lilly Meyer [phone] Designated Person #1 Relationship Significant other Designated Person #2 We May Share RAINE Almeida [phone] Designated Person #2 Relationship Mother Privacy Restrictions Requested None Height 184.5 cm Admission Weight 143.1 kg Weight Method Stated [place] Body Weight 79.07 kg BSA Admission 2.6 [...] Method Explanation, Printed materials Preferred Spoken Language Cypriot Preferred Written Language Cypriot Information Given by Patient Patient's Current Physicians [...] In Error (In Error) 08/27/2023 7:00 T [place] History and Physical . Assessment and Plan [place] Society of Anesthesiologists (ASA) physical status classification: Class III. Anesthetic Preoperative Plan Anesthetic technique: MAC. Informed consent: signed by patient. Digitally Signed by DARIEL HITCHCOCK on 08/27/2023 10:09 AM [facility]03-13-2024 Note [place] ADMISSION HISTORY AND PHYSICIAL CHIEF COMPLAINT: Colorectal cancer screening HISTORY OF PRESENT ILLNESS: Colorectal cancer screening, high risk, family history of colon cancer REVIEW OF SYSTEMS: Constitutional: denies weight loss Cardiovascular:denies chest pain, palpitations Respiratory:denies shortness of breath Gastrointestinal:no abd pain Musculoskeletal: no arthralgias Skin: no rashes ACTIVE PROBLEMS: (13) Acid reflux (230225118) 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 ([id number]) Electric shock (9351649597) Fall (9240173) Family history of colon cancer (683581963) Full dentures (687198838) Pain in the abdomen (66891878) Postprocedural hematoma of skin and subcutaneous tissue following other procedure (150134596) Screening for colon cancer (360586504) Seizure (614234750) TIA (826935093) Tobacco use (3551785371) Umbilical hernia (2876334300) MEDICATIONS: Active Inpt Meds: None Active PRN [...] REYES MOORE DO on 08/27/2023 07:01 AM [facility]02-22-2024 Evaluation + Plan note Future Scheduled Tests Laboratory* Thyroid Stimulating Hormone 08/07/23 * Complete Blood Count 08/07/23 * Lipid Profile 08/07/23 * Hepatitis C Antibody IgG 08/07/23 * Complete Metabolic Panel 08/07/23 [facility] 02-21-2024 NoteHNO ID: [id number] Author: KELLEY MERAZ APRN.ALMA NOEL Service: ? 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 He was referred by Linda Griffiths CNP (General Surgery) [address] [address]. This consultation was shared with the referral source via the [facility] electronic medical record. The patient understanding [...] activity was identified. 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 He was referred by Linda Griffiths CNP (General Surgery) [address] [address]. This consultation was shared with the referral source via the [facility] electronic medical record. The patient understanding [...] suspiciousactivity was identified. 08/06/2023 by Kelley Meraz APRN.REVIEW SPECIALIST, DNP Functional Limitations: The patient has been [...] denied CHF: denied Uncontrolled HTN: denied Recent MT: denied Arrythmias: denied Afib: denied Hyperthyroid: denied [...] heart attack. Got his GED. 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 [...] which included preparing to see the patient, vdez-ch-sivr patient care, completing clinical documentation, obtaining and/or reviewing separately obtained history, performing a medically appropriate examination, counseling and educating the pat ient/family/caregiver, and ordering medications, tests, or procedures. Kelley Meraz APRN.ALMA NOEL [facility] NoteHNO ID: [id number] Author: JESE RICHARDSON MD Service: ? Author [...] our notes. Patient consented for study? [facility] NoteHNO ID: [id number] Author: VIVIANA TERESA MD Service: ? Author Type: Fellow Type: Progress Notes Filed: 07/07/2023 09:35 Note Text: [facility] - HISTORY AND PHYSICAL Chief Complaint: pain to the left of the hernia repair HPI: Patrick Koroma is a 43 year old male with PMH post traumatic seizure disorder, s/p appendectomy and multiple hernia repair who presents with pain lateral to the hernia repair site On 11/22/21 he had a robotic assisted repair of recurrent ventral hernia at [facility] with Dr Aaron Duque with removal of [...] intervention needed. Mostly neuropathic pain Viviana Teresa, [facility]01-18-2024 Note. MICRO - Microbiology PROCEDURE: Blood [...] Locations *1: This test was performed at: [facility], [facility] [place] [address], [facility]- , [facility] ([place])07-03-2023 Note. MICRO - Microbiology PROCEDURE: Blood [...] Locations *1: This test was performed at: [address], [address] [place] [address] ([place])07-01-2023 Note. MICRO - Microbiology PROCEDURE: Urine [...] Locations *1: This test was performed at: [address], [address] [place] [address] ([place])06-28-2023 Hospital Discharge instructions Patient Education 06/28/2023 [...] that gets worse Trouble urinating Constipation Vomiting 7017-[address] [employer]. [address] [place] [address]. All rights reserved. This information is not intended as a substitute for professional medical care. Always follow yourhealthcare professional's instructions. Follow Up Care 06/28/2023 13:49:11 With:AARON DUQUE MD, Surgery Address: [address] [facility] [place] [address]- [phone] When:2-4 days With:[facility] Address: [address] [place] [phone] [phone] When:2-4 days [facility] 01-13-2024 Note Discharge Instructions Thank you for allowing [facility] to assist you with your healthcare needs. [...] Surgery When Within 2-4 days Where: [address] [facility] [place] [address] [phone] Follow Up with [facility] When Within 2-4 days Where: [address] [place] [phone] Allergies Keflex Keppra (Rash) Tape, Paper (Rash) [...] that gets worse Trouble urinating Constipation Vomiting 5857-[address] [employer] [place] [address]. All rights reserved. This information is not intended as a substitute for professional medical care. Always follow yourhealthcare professional's instructions. Additional Information VACCINATE! IT SAVES LIVES! Members of the community who have not yet received the COVID-19 vaccine and would like to receive it can visit one of [facility] vaccine clinics. There are many vaccine clinic locations within the [facility]. For locations and available times, please visit www.[email or web address].[place].gov/. It is important to note that some COVID mobile vaccine clinics are held outdoors and may be canceled in rainy or stormy conditions. To learn more about pediatric vaccinations (ages 5-11), we invite you to visit the [facility] webpage. https://www.[facility].org/pages/7481-Awdnb-Umgbeazqljj-Ahoolvphsq-Dtosy-Ldg stions.htmlTo learn more about the COVID-19 vaccine, we invite you to visit the CDC website for a list of frequently asked questions. https://www.cdc.gov/coronavirus/2019-ncov/vaccines/faq.html [facility] Patient Portal Access Instructions: Stay connected with your healthcare team and access your personal medical information anytime with the [facility] Patient Portal. If you would like a full copy of your medical records please contact the [facility] Medical Records Department Friday through Friday between 8a.m. and 4:30p.m. Please follow the directions below to access the portal: 1.Access the email account you provided upon registration to the [facility].2.Look for an invitation email from [facility].3.Open the email and access the invitation link: Accept Invitation to [facility]4.Fill in the required vegas to create your account. Sign into [email or web address] with your username and password that you [...] you will allow to register on the [facility] Patient Portal for access to your information. You can also access the [facility] Patient Portal on the [employer] yen. Simply click on Health Records under PlatformQ and then click on the [employer] logo. HOW TO SAFELY DISPOSE OF PRESCRIPTION [...] Call your local pharmacy or go to http://[employer].Score The Board/5Z0Uh5d to find one close to you.3.Make use of household items: Use cat litter or old coffee grounds to dispose medications if other options arenot available. Mix your drugs with these household products, seal them in an airtight container andthrow it into the garbage. Call [facility]: [phone] to be sure your drugs can be [...] aware that I should contact my doctor. Patient/Distribution Operations Supervisor Signature: Date/Time: Relationship to Patient: Witness Name/Signature: Date/Time: [facility]01-13-2024 Note ORIGINAL EXAMINATION: CT OF THE ABDOMEN [...] Date: 06/28/2023 4:25:43 PM Ordering Provider: [facility]01-13-2024 Evaluation + Plan note Diagnostic Tests Pending * Urine Culture 06/28/23 [facility] 12-24-2023 Hospital Discharge instructions Patient Education 06/08/2023 [...] foods again, start with small amounts of ztlb-rd-fbkipk, low- fat foods. These include apple sauce, [...] increase stomach acid. Don't use aspirin or nael-eec-seyxgpp pain and fever medicines, if possible. This includes nonsteroidal anti-inflammatory drugs (NSAIDs). Lose excess weight. Finish eating at least 2 hours before you go to bed or lie down. Raise the head of your bed. 4958-8637 [employer]. [address] [place] [address]. All rights reserved. This information is not intended as a substitute for professional medical care. Always follow yourhealthcare professional's instructions. Follow Up Care 06/08/2023 17:37:31 With:Follow up with primary care provider Address:Unknown When:2-4 days [facility] 12-24-2023 Note Discharge Instructions Thank you for allowing [facility] to assist you with your healthcare needs. [...] to receive it can visit one of [facility] vaccine clinics. There are many vaccine clinic locations within the [facility]. For locations and available times, please visit www.[email or web address].[place].gov/. It is important to note that some COVID mobile vaccine clinics are held outdoors and may be canceled in rainy or stormy conditions. To learn more about pediatric vaccinations (ages 5-11), we invite you to visit the [facility] webpage. https://www.[facility].org/pages/1479-Tuaej-Semxztmufbz-Naduljviav-Qoheo-Dxn stions.htmlTo learn more about the COVID-19 vaccine, we invite you to visit the CDC website for a list of frequently asked questions. https://www.cdc.gov/coronavirus/2019-ncov/vaccines/faq.html [facility] Patient Portal Access Instructions: Stay connected with your healthcare team and access your personal medical information anytime with the [facility] Patient Portal. If you would like a full copy of your medical records please contact the [facility] Medical Records Department Friday through Friday between 8a.m. and 4:30p.m. Please follow the directions below to access the portal: 1.Access the email account you provided upon registration to the [facility].2.Look for an invitation email from [facility].3.Open the email and access the invitation link: Accept Invitation to [facility]4.Fill in the required vegas to create your account. Sign into [email or web address] with your username and password that you [...] you will allow to register on the [facility] Patient Portal for access to your information. You can also access the [facility] Patient Portal on the [employer]per. Simply click on Health Records under [employer] and then click on the [employer] logo. HOW TO SAFELY DISPOSE OF PRESCRIPTION [...] Call your local pharmacy or go to http://[employer].Score The Board/1E7Ma2p to find one close to you.3.Make use of household items: Use cat litter or old coffee grounds to dispose medications if other options arenot available. Mix your drugs with these household products, seal them in an airtight container andthrow it into the garbage. Call [facility]: [phone] to be sure your drugs can be [...] aware that I should contact my doctor. Patient/Distribution Operations Supervisor Signature: Date/Time: Relationship to Patient: Witness Name/Signature: Date/Time: [facility]12-02-2023 Hospital Discharge instructions Patient Education 05/16/2023 23:04:20 AA Blank DI (CUSTOM) Result type:CT Abd/Pelvis w/ IV Contrast Only Result date:May 16, 2023 21:13 EST Result status:Auth (Verified) Result title:CT ABD/PELVIS W/ IV CONTRAST ONLY Performed by:CARLO LUKE MD on May 16, 2023 21:06 EST Cosigned by:ZOILA MABRY DO Verified by:CARLO LUKE MD on May 16, 2023 21:13 EST Encounter info:[id number], [facility], Emergency, 05/16/2023 - Contributor system:[facility] [employer] [address] * Final Report * [id number] ORIGINAL EXAMINATION: CT OF THE ABDOMEN AND [...] 06/02/2006 Document Revised: 05/19/2013 Document Reviewed: 06/03/2014 [facility] [place] Patient Information 2015 [employer]. This information is not intended to replace [...] blue color of the hand or foot 4029-6676 [employer]. [address] [place] [address]. All rights reserved. This information is not [...] confusion Fainting or loss of consciousness Seizure 4609-59[address] [employer]. [address] [place] [address]. All rights reserved. This information is not [...] foods again, start with small amounts of mbjs-rp-ebmluy, low- fat foods. These include apple sauce, [...] increase stomach acid. Don't use aspirin or fpoh-sal-weijwcu pain and fever medicines, if possible. This includes nonsteroidal anti-inflammatory drugs (NSAIDs). Lose excess weight. Finish eating at least 2 hours before you go to bed or lie down. Raise the head of your bed. 5361-3097 [employer]. [address] [place] [address]. All rights reserved. This information is not intended as a substitute for professional medical care. Always follow yourhealthcare professional's instructions. Follow Up Care 05/16/2023 20:02:25 With:Go to emergency room if symptoms worsen Address:Unknown When:2-4 days With:Follow up with primary care provider Address:Unknown When:2-4 days [facility] 12-01-2023 Note ORIGINAL EXAMINATION: CT OF THE [...] Sign Date: 05/16/2023 10:45:51 PM Ordering Provider: [facility]08-30-2023 Hospital Discharge instructions Patient Education 02/12/2023 20:11:30 [...] chest, arm, back, neck or jaw pain 3253-2288 Face [employer] Face [employer]. [address] [place] [address]. All rights reserved. This information is not intended as a substitute for professional medical care. Always follow yourhealthcare professional's instructions. Follow Up Care 02/12/2023 17:22:30 With:AARON DUQUE Address: [address] [place] [address]- [phone] Business (1) When:2-4 days With:NONE PHYSICIAN Address:Unknown When:2-4 days [facility] 08-30-2023 Emergency department Discharge summary Discharge Instructions Thank you for allowing [facility] to assist you with your healthcare needs. The following is importantdischarge information regarding your hospital visit. Diagnosis from Today's Visit Abdominal pain What to Do Next Instructions from Your Care Team No qualifying data available. Post Acute Orders No qualifying data available. You Need to Schedule the Following Appointments Follow Up with AARON DUQUE When Within 2-4 days Where: [address] [place] [address]- [phone] Business (1) Follow Up with NONE PHYSICIAN [...] chest, arm, back, neck or jaw pain [phone] [employer]. [address] [place] [address]. All rights reserved. This information is not intended as a substitute for professional medical care. Always follow yourhealthcare professional's instructions. Additional Information VACCINATE! IT SAVES LIVES! Members of the community who have not yet received the COVID-19 vaccine and would like to receive it can visit one of [facility] vaccine clinics. There are many vaccine clinic locations within the [facility]. For locations and available times, please visit www.[email or web address].[place].gov/. It is important to note that some COVID mobile vaccine clinics are held outdoors and may be canceled in rainy or stormy conditions. To learn more about pediatric vaccinations (ages 5-11), we invite you to visit the [facility] webpage. https://www.[facility].org/pages/5006-Huwec-Pfhqvqwfuuf-Ckazhieelw-Wtwcr-Qxq stions.htmlTo learn more about the COVID-19 vaccine, we invite you to visit the CDC website for a list of frequently asked questions. https://www.cdc.gov/coronavirus/2019-ncov/vaccines/faq.html [facility] Patient Portal Access Instructions: Stay connected with your healthcare team and access your personal medical information anytime with the [facility] Patient Portal. If you would like a full copy of your medical records please contact the [facility] Medical Records Department Friday through Friday between 8a.m. and 4:30p.m. Please follow the directions below to access the portal: 1.Access the email account you provided upon registration to the [facility].2.Look for an invitation email from [facility].3.Open the email and access the invitation link: Accept Invitation to [facility]4.Fill in the required vegas to create your account. Sign into [email or web address] with your username and password that you [...] you will allow to register on the [facility] Patient Portal for access to your information. You can also access the [facility] Patient Portal on the Piper. Simply click on Health Records under PlatformQ and then click on the [employer] logo. [...] Call your local pharmacy or go to http://bit.Score The Board/3X1Gt4t to find one close to you.3.Make use of household items: Use cat litter or old coffee grounds to dispose medications if other options arenot available. Mix your drugs with these household products, seal them in an airtight container andthrow it into the garbage. Call [facility]: [phone] to be sure your drugs can be [...] aware that I should contact my doctor. Patient/Distribution Operations Supervisor Signature: Date/Time: Relationship to Patient: Witness Name/Signature: Date/Time: [facility]08-30-2023 Emergency department Discharge summary Discharge Instructions Thank you for allowing [facility] to assist you with your healthcare needs. The following is importantdischarge information regarding your hospital visit. Diagnosis from Today's Visit Abdominal pain What to Do Next Instructions from Your Care Team No qualifying data available. Post Acute Orders No qualifying data available. You Need to Schedule the Following Appointments Follow Up with AARON МАРИЯ When Within 2-4 days Where: [address] [facility] [place] [address] [phone] [facility] (1) Follow Up with NONE PHYSICIAN [...] chest, arm, back, neck or jaw pain [phone] [facility]. [address] [place] [address]. All rights reserved. This information is not intended as a substitute for professional medical care. Always follow yourhealthcare professional's instructions. Additional Information VACCINATE! IT SAVES LIVES! Members of the community who have not yet received the COVID-19 vaccine and would like to receive it can visit one of [facility] vaccine clinics. There are many vaccine clinic locations within the [facility]. For locations and available times, please visit www.gettheshot.coronavirus.[place].gov/. It is important to note that some COVID mobile vaccine clinics are held outdoors and may be canceled in rainy or stormy conditions. To learn more about pediatric vaccinations (ages 5-11), we invite you to visit the [facility] webpage. https://www.[facility].org/pages/6051-Osmyw-Vqiqcjihngg-Xjqvhtfnjx-Avkcf-Dwp stions.htmlTo learn more about the COVID-19 vaccine, we invite you to visit the CDC website for a list of frequently asked questions. https://www.cdc.gov/coronavirus/2019-ncov/vaccines/faq.html [facility] Patient Portal Access Instructions: Stay connected with your healthcare team and access your personal medical information anytime with the [facility] Patient Portal. If you would like a full copy of your medical records please contact the [facility] Medical Records Department Friday through Friday between 8a.m. and 4:30p.m. Please follow the directions below to access the portal: 1.Access the email account you provided upon registration to the hospital.2.Look for an invitation email from [facility].3.Open the email and access the invitation link: Accept Invitation to [facility]4.Fill in the required vegas to create your account. Sign into [email or web address] with your username and password that you [...] you will allow to register on the [facility] Patient Portal for access to your information. You can also access the [facility] Patient Portal on the Piper. Simply click on Health Records under People PowerData and then click on the Sense Platform logo. HOW TO SAFELY DISPOSE OF PRESCRIPTION [...] Call your local pharmacy or go to http://bit.Score The Board/4F1En1k to find one close to you.3.Make use of household items: Use cat litter or old coffee grounds to dispose medications if other options arenot available. Mix your drugs with these household products, seal them in an airtight container andthrow it into the garbage. Call [facility]: [phone] to be sure your drugs can be [...] aware that I should contact my doctor. Patient/Distribution Operations Supervisor Signature: Date/Time: Relationship to Patient: Witness Name/Signature: Date/Time: [facility] [id number] Note ORIGINAL EXAMINATION: CT OF THE ABDOMEN [...] Date: 02/12/2023 8:10:54 PM Ordering Provider: [facility]08-30-2023 Note Sinus rhythm RSR' in V1 or V2, probably normal variant Baseline wander in lead(s) II,III,aVF,V2 Compared to ECG at 03/08/2018 23:11:38 BORDERLINE ECG Electronic Signature: ANJEL PEÑA 02/12/2023 17:53:40[facility] 05-16-2023 NoteORIGINAL PROCEDURE: Fluoroscopic drainage catheter evaluation (Abscessogram) performed on 10/28/2022. INDICATION: LLQ seroma s/p drain and sclerosis. The patient reports minimal drainage recently. COMPARISON: 10/21/2022. TECHNIQUE/FINDINGS: The procedure was performed in the VIR Suite with the patient in the supine position. A ethanol operations manager image demonstrated position of the existing [...] 10/29/2022 10:35:26 AM Ordering Provider: [facility] ([place]) 10-29-2022 NoteORIGINAL PROCEDURE: Ultrasound guided percutaneous [...] Date: 10/29/2022 10:32:48 AM Ordering Provider: [facility] ([place])10-28-2022 History and physical note IR PREPROCEDURE [...] 10/10/2022 and can be found in the [facility] [employer] Medical Records ([facility]). Roshni Flores PA-C Interventional Radiology Pager [phone] IR Dept [id number] Available on cortext Digitally Signed by ROSHNI FLORES PA-C on 10/28/2022 05:27 PM [id number] Note* Farrah Mcallister RN: SIGN, AUTHOR, SIGN, AUTHOR, PERFORM Event Display: IR Procedure Record Authored Date: [id number] IR Procedure Record Summary Primary Physician: Finalized Date/Time: 10/28/22 15:00:43 Pt. Name: PATRICK KOROMA Cesar /Sex: 1980 Male Med Rec #: [id number] Physician: Financial #: [id number] Pt. Type: O Room/Bed: / Admit/Disch: 10/28/22 [...] Entry 3 Case Attendee ESAU LOVE MD Scientific Database CuratorBrandie Sanderson Scientific Database Curator Role Performed Radiologist Procedure Scrub Technologist Circulating [...] Case Attendee Farrah Mcallister RN Role Performed Electronic Design Engineer 1 Details Time In 10/28/22 14:40:00 Time [...] mL Medication OMNIPAQUE 300 50ML 10/PK Y-530 [facility] [phone] Radiology Flouroscopy Fluoroscopy Used? Yes Fluoro Dose [...] Radiology - Action Plan Outcomes Met? Yes Digital Experience Manager Farrah Mcallister RN Completing Procedure Plan Last Modified By: Farrah Mcallister RN 10/28/22 14:51:12 Case Comments <None> Finalized By: Farrah Mcallister RN Document Signatures Signed By: Farrah Mcallister RN 10/28/22 14:58 Farrah Mcallister RN 10/28/22 15:00 [facility] 05-15-2023 Hospital Discharge instructions Patient Education 10/28/2022 14:57:53 Radiology- Procedure/Biopsy 09/29/2019 (CUSTOM) [facility] Rad[facility] Procedure/Biopsy Discharge Instructions Interventional Radiology [facility] [address] [place] [address] Today, you had a . This procedure/biopsy [...] 1 to 2 days following the procedure. Pnyh-nia-wukptgt pain medication should be used for pain [...] instruction below: 8:00 am- 5:00 pm call [phone] After 5:00 pm call [phone] After 24 hours, contact the physician who [...] with primary care provider Address:Unknown When: Unknown [facility] 05-15-2023 Note IR Procedure Record Summary Primary Physician: Finalized Date/Time: 10/28/22 15:00:43 Pt. Name: PATRICK KOROMA Cesar SauerB./Sex: 1980 Male Med Rec #: [id number] Physician: Financial #: [id number] Pt. Type: O Room/Bed: / Admit/Disch: 10/28/22 [...] Entry 3 Case Attendee ESAU LOVE MD, Scientific Database CuratorBrandie Sanderson Scientific Database Curator Role Performed Radiologist Procedure Scrub Technologist Circulating [...] Case Attendee Farrah Mcallister RN Role Performed Electronic Design Engineer 1 Details Time In 10/28/22 14:40:00 Time [...] mL Medication OMNIPAQUE 300 50ML 10/PK Y-530 [facility] [phone] Radiology Flouroscopy Fluoroscopy Used? Yes Fluoro Dose [...] Points Yes Checked Last Modified By: Farrah Mcallisetr RN 10/28/22 14:56:00 Radiology Procedure Plan - [...] Radiology - Action Plan Outcomes Met? Yes Digital Experience Manager Farrah Mcallister RN Completing Procedure Plan Last Modified By: Farrah Mcallister RN 10/28/22 14:51:12 Case Comments Finalized By: Farrah Mcallister RN Document Signatures Signed By: Farrah Mcallister RN 10/28/22 14:58 Farrah Mcallister RN 10/28/22 15:00 [id number] Summary of episode note Discharge Instructions Thank you for allowing [facility] to assist you with your healthcare needs. [...] medication providers or retail pharmacies. Education Materials [facility] Radiology Procedure/Biopsy Discharge Instructions Interventional Radiology [facility] [address] [address] Today, you had a . This procedure/biopsy [...] 1 to 2 days following the procedure. Xwnl-dpw-ddtanbj pain medication should be used for pain [...] instruction below: 8:00 am- 5:00 pm call [phone] After 5:00 pm call [phone] After 24 hours, contact the physician who [...] to receive it can visit one of [facility] vaccine clinics. There are many vaccine clinic locations within the [facility]. For locations and available times, please visit https://[email or web address].[place].gov/. It is important to note that some COVID mobile vaccine clinics are held outdoors and may be canceled in rainy or stormy conditions. To learn more about pediatric vaccinations (ages 5-11), we invite you to visit the [facility] webpage. https://www.[facility].org/pages/7644-Phemo-Tncalqyoynh-Gqdhajqvep-Lxvyu-Kot stions.htmlTo learn more about the COVID-19 vaccine, we invite you to visit the CDC website for a list of frequently asked questions.https://www.cdc.gov/coronavirus/2019-ncov/vaccines/faq.html [facility] Patient Portal Access Instructions: Stay connected with your healthcare team and access your personal medical information anytime with the [facility] Patient Portal. Please follow the directions below to create your [facility] account: 1.Access the email account you provided upon registration to the hospital/physician office.2.Look for an invitation email from [facility].3.Open the email and access the invitation link: AcceptInvitation to [facility].4.Fill in the required vegas to create your account. To access your account, visit [email or web address]. Click the blue button labeled Access Patient Portal and then log in with the username and password that you created in the steps above. You will be able to view your test results, lab results, a summary of your visits, upcoming appointments and more. There is also a convenient messaging option where you can send secure messages to your Samplify Systemsvider. In addition, you will have the ability to download any documents or summaries to your computer and/or send the information securely to a physician. Remember that your healthcare information is confidential, so carefully consider who you will allowto register on the [facility] Patient Portal for access to your information. You can also access the [facility] Patient Portal on the [facility]andy Anywhere yen. Simply click on Patient Portal and then log into your account. If you would like to receive a full copy of your medical records, please contact the [facility] Medical Records Department by calling [phone], Friday through Friday between 8 a.m. and [...] Call your local pharmacy or go to http://[employer].Score The Board/6V5Uy3o to find one close to you.3.Make use of household items: Use cat litter or old coffee grounds to dispose medications if other options arenot available. Mix your drugs with these household products, seal them in an airtight container andthrow it into the garbage. Call [facility]: [phone] to be sure your drugs can be [...] aware that I should contact my doctor. Patient/Distribution Operations Supervisor Signature: Date/Time: Relationship to Patient: Witness Name/Signature: Date/Time: [id number] Evaluation + Plan noteExtracted from: Title:Preprocedure HP [...] 10/10/2022 and can be found in the [facility] Electronic Medical Records ([facility]). Roshni Flores PA-C Interventional Radiology Pager [phone] IR Dept [id number] [facility] Future Scheduled Tests Laboratory* Basic Metabolic Panel 11/23/21 * Carbamazepine Level 11/23/21 * Complete Metabolic Panel 11/23/21 [facility] 05-15-2023 Hospital Discharge instructions Patient Education [...] come back to this facility in person. [phone] [facility]. [address] [place] [address]. All rights reserved. This information is not intended as a substitute for professional medical care. Always follow [facility]ket[facility] campus[facility] professional's instructions. Follow Up Care 10/28/2022 01:29:29 With:The IR department at [facility] Address:Unknown When:Within 1 Day(s) Comments:Follow-up as scheduled later today to have the drain removed.Return to the ED for any problems or concerns. [facility] 05-15-2023 Note Discharge Instructions Thank you for allowing [facility] to assist you with your healthcare needs. The following is importantdischarge information regarding your hospital visit. Diagnosis from Today's Visit Drain Problem Drain leakage What to Do Next Instructions from Your Care Team No qualifying data available. Post Acute Orders No qualifying data available. You Need to Schedule the Following Appointments Follow Up with The IR department at [facility] When In 1 day Why: Follow-up [...] come back to this facility in person. [phone] [facility]. [address] [facility], [place] [address]. All rights reserved. This information is not intended as a substitute for professional medical care. Always follow yourkettering health main campuscare professional's instructions. Additional Information VACCINATE! IT SAVES LIVES! Members of the community who have not yet received the COVID-19 vaccine and would like to receive it can visit one of [facility] vaccine clinics. There are many vaccine clinic locations within the [facility]. For locations and available times, please visit www.gettheshot.coronavirus.[place].gov/. It is important to note that some COVID mobile vaccine clinics are held outdoors and may be canceled in rainy or stormy conditions. To learn more about pediatric vaccinations (ages 5-11), we invite you to visit the [facility] webpage. https://www.[facility].org/pages/4465-Xmxny-Cbczrzaxtmz-Npadzvbaqd-Qnneu-Gsc stions.htmlTo learn more about the COVID-19 vaccine, we invite you to visit the CDC website for a list of frequently asked questions. https://www.cdc.gov/coronavirus/2019-ncov/vaccines/faq.html [facility] Patient Portal Access Instructions: Stay connected with your healthcare team and access your personal medical information anytime with the [facility] Patient Portal. If you would like a full copy of your medical records please contact the [facility] Medical Records Department Friday through Friday between 8a.m. and 4:30p.m. Please follow the directions below to access the portal: 1.Access the email account you provided upon registration to the hospital.2.Look for an invitation email from [facility].3.Open the email and access the invitation link: Accept Invitation to [facility]4.Fill in the required vegas to create your account. Sign into [email or web address] with your username and password that you [...] you will allow to register on the [facility] Patient Portal for access to your information. You can also access the [facility] Patient Portal on the Piper. Simply click on Health Records under PlatformQ and then click on the Wandy logo. [...] Call your local pharmacy or go to http://Artisan Pharma.Score The Board/9M3Ko5m to find one close to you.3.Make use of household items: Use cat litter or old coffee grounds to dispose medications if other options arenot available. Mix your drugs with these household products, seal them in an airtight container andthrow it into the garbage. Call [facility]: [phone] to be sure your drugs can be [...] aware that I should contact my doctor. Patient/Distribution Operations Supervisor Signature: Date/Time: Relationship to Patient: Witness Name/Signature: Date/Time: [facility]05-15-2023 Note Discharge Instructions Thank you for allowing [facility] to assist you with your healthcare needs. The following is importantdischarge information regarding your hospital visit. Diagnosis from Today's Visit Drain Problem Drain leaking What to Do Next Instructions from Your Care Team No qualifying data available. Post Acute Orders No qualifying data available. You Need to Schedule the Following Appointments Follow Up with The IR department at [facility] When In 1 day Why: Follow-up [...] come back to this facility in person. 5137-5254 [facility]. [address] [place] [address]. All rights reserved. This information is not intended as a substitute for professional medical care. Always follow yourhealthcare professional's instructions. Additional Information VACCINATE! IT SAVES LIVES! Members of the community who have not yet received the COVID-19 vaccine and would like to receive it can visit one of [facility] vaccine clinics. There are many vaccine clinic locations within the [facility]. For locations and available times, please visit www.gettheshot.coronavirus.[place].gov/. It is important to note that some COVID mobile vaccine clinics are held outdoors and may be canceled in rainy or stormy conditions. To learn more about pediatric vaccinations (ages 5-11), we invite you to visit the [facility] webpage. https://www.[facility].org/pages/9109-Vfogu-Gxdjhrmwpjn-Palheogvyg-Bmskm-Wnj stions.htmlTo learn more about the COVID-19 vaccine, we invite you to visit the CDC website for a list of frequently asked questions. https://www.cdc.gov/coronavirus/2019-ncov/vaccines/faq.html [facility] Patient Portal Access Instructions: Stay connected with your healthcare team and access your personal medical information anytime with the [facility] Patient Portal. If you would like a full copy of your medical records please contact the [facility] Medical Records Department Friday through Friday between 8a.m. and 4:30p.m. Please follow the directions below to access the portal: 1.Access the email account you provided upon registration to the [facility].2.Look for an invitation email from [facility].3.Open the email and access the invitation link: Accept Invitation to [facility]4.Fill in the required vegsa to create your account. Sign into [email or web address] with your username and password that you [...] you will allow to register on the [facility] Portal for access to your information. You can also access the [facility] Patient Portal on the Searchandise Commerce yen. Simply click on Health Records under Accelerated Vision Groupta and then click on the Wandy logo. [...] Call your local pharmacy or go to http://bit.Score The Board/2W2Af5m to find one close to you.3.Make use of household items: Use cat litter or old coffee grounds to dispose medications if other options arenot available. Mix your drugs with these household products, seal them in an airtight container andthrow it into the garbage. Call [facility]: [phone] to be sure your drugs can be [...] aware that I should contact my doctor. Patient/Distribution Operations Supervisor Signature: Date/Time: Relationship to Patient: Witness Name/Signature: Date/Time: [facility]05-15-2023 Note Discharge Instructions Thank you for allowing [facility] to assist you with your healthcare needs. The following is importantdischarge information regarding your hospital visit. Diagnosis from Today's Visit Drain Problem Drain leaking What to Do Next Instructions from Your Care Team No qualifying data available. Post Acute Orders No qualifying data available. You Need to Schedule the Following Appointments Follow Up with The IR department at [facility] When In 1 day Why: Follow-up [...] come back to this facility in person. [phone] [facility]. [address] [place] [address], [place] [address]. All rights reserved. This information is not intended as a substitute for professional medical care. Always follow yourhealthcare professional's instructions. Additional Information VACCINATE! IT SAVES LIVES! Members of the community who have not yet received the COVID-19 vaccine and would like to receive it can visit one of [facility] vaccine clinics. There are many vaccine clinic locations within the [facility]. For locations and available times, please visit www.gettheshot.coronavirus.[place].gov/. It is important to note that some COVID mobile vaccine clinics are held outdoors and may be canceled in rainy or stormy conditions. To learn more about pediatric vaccinations (ages 5-11), we invite you to visit the [facility] webpage. https://www.[facility].org/pages/6653-Bvvck-Qmbvefzqqql-Hwrktgupkn-Tirrj-Bqn stions.htmlTo learn more about the COVID-19 vaccine, we invite you to visit the CDC website for a list of frequently asked questions. https://www.cdc.gov/coronavirus/2019-ncov/vaccines/faq.html [facility] Patient Portal Access Instructions: Stay connected with your healthcare team and access your personal medical information anytime with the [facility] Patient Portal. If you would like a full copy of your medical records please contact the [facility] Medical Records Department Friday through Friday between 8a.m. and 4:30p.m. Please follow the directions below to access the portal: 1.Access the email account you provided upon registration to the [facility].2.Look for an invitation email from [facility].3.Open the email and access the invitation link: Accept Invitation to [facility]4.Fill in the required vegas to create your account. Sign into [email or web address] with your username and password that you [...] you will allow to register on the [facility] Patient Portal for access to your information. You can also access the [facility] Patient Portal on the Searchandise Commerce yen. Simply click on Health Records under PlatformQ and then click on the Sense Platform logo. HOW TO SAFELY DISPOSE OF PRESCRIPTION [...] Call your local pharmacy or go to http://Goo Technologies/9N7Ty6o to find one close to you.3.Make use of household items: Use cat litter or old coffee grounds to dispose medications if other options arenot available. Mix your drugs with these household products, seal them in an airtight container andthrow it into the garbage. Call [facility]: [phone] to be sure your drugs can be [...] aware that I should contact my doctor. Patient/Distribution Operations Supervisor Signature: Date/Time: Relationship to Patient: Witness Name/Signature: Date/Time: [facility]05-08-2023 Evaluation + Plan noteExtracted from: Title:Preprocedure HP [...] 10/10/2022 and can be found in the [facility] Electronic Medical Records ([facility]). Roshni Flores PA-C Interventional Radiology Pager [phone] IR Dept [id number] [facility] Future Appointments Appointment Date:10/28/2022 01:00:00 PM Scheduled Provider: Location:IR Appointment Type:IR Drainage Cath Injection for Eval Future Scheduled Tests Laboratory* Basic Metabolic Panel 11/23/21 * Carbamazepine Level 11/23/21 * Complete Metabolic Panel 11/23/21 [facility] 05-08-2023 Note* Farrah Mcallister RN: SIGN, AUTHOR, SIGN, AUTHOR, SIGN, AUTHOR, PERFORM Event Display: IR Procedure Record Authored Date: [id number] IR Procedure Record Summary Primary Physician: Finalized Date/Time: 10/21/22 10:43:31 Pt. Name: PATRICK KOROMA Cesar Reyes./Sex: 1980 Male Med Rec #: [id number] Physician: Financial #: [id number] Pt. Type: O Room/Bed: / Admit/Disch: 10/21/22 [...] Attendee ESAU LOVE MD, Brittaney RN Hultman, Scientific Database CuratorVerito Remy Role Performed Radiologist Procedure Electronic Design Engineer 1 Scrub Technologist Details Time In 10/21/22 10:25:00 10/21/22 09:58:00 10/21/22 09:58:00 Time Out 10/21/22 10:38:00 10/21/22 10:38:00 10/21/22 10:38:00 Procedure/Preference IR Sclerotherapy SN IR Sclerotherapy SN IR Sclerotherapy SN Card Last Modified By: Farrah Mcallister RN, Brittaney RN Magee, Brittaney RN 10/21/22 10:38:11 10/21/22 10:38:11 10/21/22 10:38:11 Entry 4 Case Attendee AllieSky Мария L Role Performed Circulating Technologist Details Time In [...] and Sky Goff results are properly Suzie K, HarrellsSky santos labeled and Tech Мария L appropriately displayed, [...] Radiology - Action Plan Outcomes Met? Yes Digital Experience Manager Farrah Mcallister RN Completing Procedure Plan Last [...] 10/21/22 10:38 Farrah Mcallister RN 10/21/22 10:43 [facility] 05-08-2023 Note IR Procedure Record Summary Primary Physician: Finalized Date/Time: 10/21/22 10:43:31 Pt. Name: [place] PATRICK Cesar Reyes./Sex: 1980 Male Med Rec #: [id number] Physician: Financial #: [id number] Pt. Type: O Room/Bed: / Admit/Disch: 10/21/22 [...] Tech Amanda K Role Performed Radiologist Procedure Electronic Design Engineer 1 Scrub Technologist Details Time In 10/21/22 [...] and site marked, Present for Time Out aFrrah Mcallister RN, Relevant images and Sky Goff results are properly Suzie K, AllieSky santos labeled and Tech Мария L appropriately displayed, [...] Radiology - Action Plan Outcomes Met? Yes Digital Experience Manager Farrah Mcallister RN Completing Procedure Plan Last [...] 10/21/22 10:38 Farrah Mcallister RN 10/21/22 10:43 [facility] History and physical note IR PREPROCEDURE H&P [...] 10/10/2022 and can be found in the [facility] ([facility]). Roshni Flores PA-C Interventional Radiology Pager [phone] IR Dept [id number] [facility] on [facility] Digitally Signed by ROSHNI FLORES PA-C on 10/21/2022 09:38 AM Digitally Signed by ESAU LOVE MD on 10/21/2022 10:20 AM [id number] Note* Juliocesar Mo Scientific Database Curator: SIGN, AUTHOR, PERFORM Event Display: IR Procedure Record Authored Date: [id number] IR Procedure Record Summary Primary Physician: RAMIN SAMPSON MD Finalized Date/Time: 09/12/22 14:34:18 Pt. Name: PATRICK KOROMA /Sex: 1980 Male Med Rec #: [id number] Physician: Financial #: [id number] Pt. Type: O Room/Bed: / Admit/Disch: 09/12/22 [...] 14:30:28 Entry 4 Case Attendee Brandie Mendez Role Performed Electronic Design Engineer 1 Details Time In 09/12/22 14:10:00 Time Out 09/12/22 14:30:00 Procedure/Preference IR Drainage Cath Card Injection for Eval SN Last Modified By: Juliocesar Mo R Scientific Database Curator 09/12/22 14:30:28 Radiology Procedures- IR Entry 1 Procedure/Preference IR Drainage Cath Actual Procedure ir drain cath inj for Card Injection for Eval SN eval sn Primary Procedure Yes Primary Surgeon RAMIN SAMPSON MD Anesthesia/Sedation None Type Additional Procedure Times Start 09/12/22 14:14:00 Stop 09/12/22 14:25:00 Specialty Service SN Radiology Procedure EBL 0 mL Last Modified By: Juliocesar Mo R Scientific Database Curator 09/12/22 14:30:33 Radiology Procedure Details - IR Entry 1 Radiology Sedation Case Times Sedation Total Time 0 Radiology - Fluid/Drainage Radiology Contrast Contrast Used? Yes Dose 10 mL Medication OMNIPAQUE 300 50ML 10/PK Y-530 [facility] 9323-1485-54 Radiology Flouroscopy Fluoroscopy Used? Yes Fluoro Dose [...] drain. Last Modified By: Juliocesar Mo R Scientific Database Curator 09/12/22 14:34:10 General Case Data - IR Entry 1 Case Information Room IR 18 Case Level IR Level 2 Wound Class None Specialty SN Radiology Procedure ASA Class None Diagnosis Preop Diagnosis LLQ Seroma Postop Same As Preop Yes Postop Diagnosis LLQ Seroma Last Modified By: Juliocesar Mo R Scientific Database Curator 09/12/22 14:17:00 Procedure Case Times- IR Entry 1 Patient In Procedure Patient In OR 09/12/22 14:10:00 Patient Out of OR 09/12/22 14:30:00 Procedure Start/Stop Procedure Start Time 09/12/22 14:14:00 Procedure Stop Time 09/12/22 14:25:00 Last Modified By: Juliocesar Mo R Scientific Database Curator 09/12/22 14:30:24 Immediate Post Procedure Note - IR Entry 1 Immediate Post Yes Findings Successful drain cath Procedure Note sclerosis w/ etoh 9 ml displayed for Physician to review Closure Technique Closure Technique Other than Primary Last Modified By: Juliocesar Mo Scientific Database Curator 09/12/22 14:30:14 Immediate Post Procedure Note - IR Signed By: RAMIN SAMPSON MD 09/12/22 14:27 Allergy Information- IR Entry 1 Allergies Reviewed? Yes Allergies Reviewed Patient With Last Modified By: Juliocesar Mo R Scientific Database Curator 09/12/22 14:12:52 Radiology Protocols/Time Out- IR Entry [...] properly Tech, Vanessa, labeled and Terra L Scientific Database Curator appropriately displayed, Alcohol based prep dry Instrument Sterility Team Members Vadim Berrios Verifying Sterility Procedure IR Drainage Cath Injection for Eval SN Last Modified By: Juliocesar Mo R Scientific Database Curator 09/12/22 14:15:05 Skin Prep- IR Entry 1 Procedure IR Drainage Cath Injection for Eval SN Skin Prep Prep Area Abdomen Side Left By Vadim Berrios Prep Agents Chloraprep Hair Removal Method N/A Last Modified By: Juliocesar Mo Scientific Database Curator 09/12/22 14:15:32 Patient Positioning- IR Entry 1 Procedure IR Drainage Cath Body Position OP Supine Injection for Eval SN Feet Uncrossed? Yes Pressure Points n/a Checked Last Modified By: Juliocesar Mo R Scientific Database Curator 09/12/22 14:15:44 Radiology Procedure Plan - IR [...] symptoms of electrical injury. Outcomes Met? Yes Digital Experience Manager Juliocesar Mo Oatmeal Procedure Plan Last Modified By: Juliocesar Mo Scientific Database Curator 09/12/22 14:16:26 Case Comments <None> Finalized By: Juliocesar Mo Scientific Database Curator Document Signatures Signed By: Juliocesar Mo [employer] 09/12/22 14:34 [facility] 03-30-2023 Hospital Discharge instructions Patient Education 09/12/2022 14:26:09 Radiology- Procedure/Biopsy 09/29/2019 (CUSTOM) [facility] Radiology Procedure/Biopsy Discharge Instructions Interventional Radiology [facility] [address] [place] [address] Today, you had a . This procedure/biopsy [...] 1 to 2 days following the procedure. Rchf-aal-ejbhrdm pain medication should be used for pain [...] instruction below: 8:00 am- 5:00 pm call [phone] After 5:00 pm call [phone] After 24 hours, contact the physician who [...] with primary care provider Address:Unknown When: Unknown [facility] 03-30-2023 Interventional radiology Progress note IR [...] MARSHALL CROCKER PA-C on 09/12/2022 04:08 PM [id number] Note IR Procedure Record Summary Primary Physician: RAMIN SAMPSON MD Finalized Date/Time: 09/12/22 14:34:18 Pt. Name: PATRICK KOROMA Cesar Marquez/Sex: 1980 Male Med Rec #: [id number] Physician: Financial #: [id number] Pt. Type: O Room/Bed: / Admit/Disch: 09/12/22 [...] Case Attendee RAMIN SAMPSON MD, Alexis Tech Fierst[employer] Juliocesar R Scientific Database Curator Role Performed Primary Surgeon Scrub Technologist Circulating Technologist Details Time In 09/12/22 14:14:00 09/12/22 14:10:00 09/12/22 14:10:00 Time Out 09/12/22 14:30:00 09/12/22 14:30:00 09/12/22 14:30:00 Procedure/Preference IR Drainage Cath IR Drainage Cath IR Drainage Cath Card Injection for Eval SN Injection for Eval SN Injection for Eval SN Last Modified By: Juliocesar Mo R Rad Juliocesar Mo R Rad Chepe Juliocesar R Scientific Database Curator 09/12/22 14:30:28 Tech 09/12/22 14:30:28 Tech 09/12/22 14:30:28 Entry 4 Case Attendee Brandie Mendez Scientific Database Curator Role Performed Electronic Design Engineer 1 Details Time In 09/12/22 14:10:00 Time Out 09/12/22 14:30:00 Procedure/Preference IR Drainage Cath Card Injection for Eval SN Last Modified By: Juliocesar Mo R Scientific Database Curator 09/12/22 14:30:28 Radiology Procedures- IR Entry 1 Procedure/Preference IR Drainage Cath Actual Procedure ir drain cath inj for Card Injection for Eval SN eval sn Primary Procedure Yes Primary Surgeon RAMIN SAMPSON MD Anesthesia/Sedation None Type Additional Procedure Times Start 09/12/22 14:14:00 Stop 09/12/22 14:25:00 Specialty Service SN Radiology Procedure EBL 0 mL Last Modified By: Juliocesar Mo R Scientific Database Curator 09/12/22 14:30:33 Radiology Procedure Details - IR Entry 1 Radiology Sedation Case Times Sedation Total Time 0 Radiology - Fluid/Drainage Radiology Contrast Contrast Used? Yes Dose 10 mL Medication OMNIPAQUE 300 50ML 10/PK Y-530 [facility] [id number] Radiology Flouroscopy Fluoroscopy Used? Yes Fluoro Dose [...] the drain. Last Modified By: Juliocesar Mo [employer] 09/12/22 14:34:10 General Case Data - IR Entry 1 Case Information Room AH IR 18 Case Level IR Level 2 Wound Class None Specialty SN Radiology Procedure ASA Class None Diagnosis Preop Diagnosis LLQ Seroma Postop Same As Preop Yes Postop Diagnosis LLQ Seroma Last Modified By: Juliocesar Mo [employer] 09/12/22 14:17:00 Procedure Case Times- IR Entry 1 Patient In Procedure Patient In OR 09/12/22 14:10:00 Patient Out of OR 09/12/22 14:30:00 Procedure Start/Stop Procedure Start Time 09/12/22 14:14:00 Procedure Stop Time 09/12/22 14:25:00 Last Modified By: Juliocesar Mo [employer] 09/12/22 14:30:24 Immediate Post Procedure Note - IR Entry 1 Immediate Post Yes Findings Successful drain cath Procedure Note sclerosis w/ etoh 9 ml displayed for Physician to review Closure Technique Closure Technique Other than Primary Last Modified By: Juliocesar Mo [employer] 09/12/22 14:30:14 Immediate Post Procedure Note - IR Signed By: RAMIN SAMPSON MD 09/12/22 14:27 Allergy Information- IR Entry 1 Allergies Reviewed? Yes Allergies Reviewed Patient With Last Modified By: Juliocesar Mo [employer] 09/12/22 14:12:52 Radiology Protocols/Time Out- IR Entry [...] properly Tech, Vanessa, labeled and Yolia Devang Scientific Database Curator appropriately displayed, Alcohol based prep dry Instrument Sterility Team Members Vadim Berrios Verifying Sterility Procedure IR Drainage Cath Injection for Eval SN Last Modified By: Juliocesar Mo R Scientific Database Curator 09/12/22 14:15:05 Skin Prep- IR Entry 1 Procedure IR Drainage Cath Injection for Eval SN Skin Prep Prep Area Abdomen Side Left By Vadim Berrios Prep Agents Chloraprep Hair Removal Method N/A Last Modified By: Juliocesar Mo R Scientific Database Curator 09/12/22 14:15:32 Patient Positioning- IR Entry 1 Procedure IR Drainage Cath Body Position OP Supine Injection for Eval SN Feet Uncrossed? Yes Pressure Points n/a Checked Last Modified By: Juliocesar Mo R Scientific Database Curator 09/12/22 14:15:44 Radiology Procedure Plan - IR [...] symptoms of electrical injury. Outcomes Met? Yes Digital Experience Manager Juliocesar Mo Rad Completing Tech Procedure Plan Last Modified By: Juliocesar Mo R Scientific Database Curator 09/12/22 14:16:26 Case Comments Finalized By: Juliocesar Mo Document Signatures Signed By: Juliocesar Mo 09/12/22 14:34 [id number] Summary of episode note Discharge Instructions Thank you for allowing [facility] to assist you with your healthcare needs. [...] medication providers or retail pharmacies. Education Materials [facility] Radiology Procedure/Biopsy Discharge Instructions Interventional Radiology [facility] [address] [address] Today, you had a . This procedure/biopsy [...] 1 to 2 days following the procedure. Deen-cyx-goawkxh pain medication should be used for pain [...] instruction below: 8:00 am- 5:00 pm call [phone] After 5:00 pm call [phone] After 24 hours, contact the physician who [...] to receive it can visit one of [facility] vaccine clinics. There are many vaccine clinic locations within the [facility]. For locations and available times, please visit [email or web address]/. It is important to note that some COVID mobile vaccine clinics are held outdoors and may be canceled in rainy or stormy conditions. To learn more about pediatric vaccinations (ages 5-11), we invite you to visit the [facility] webpage. https://www.[facility].org/pages/9859-Efwrw-Vodywibisbl-Ubeojqftvn-Vqhfg-Wlp stions.htmlTo learn more about the COVID-19 vaccine, we invite you to visit the CDC website for a list of frequently asked questions. https://www.cdc.gov/coronavirus/2019-ncov/vaccines/faq.html [facility] Access Instructions: Stay connected with your healthcare team and access your personal medical information anytime with the [facility] Patient Portal.If you would like a full copy of your medical records, please contact the [facility] Medical Records Department, Friday through Friday between 8a.m. and 4:30p.m. Please follow the directions below to access the portal: 1.Access the email account you provided upon registration to the [facility].2.Look for an invitation email from [facility].3.Open the email and access the invitation link: Accept Invitation to [facility].Fill in the required vegas to create your account. Sign into [email or web address] with your username and password that you [...] you will allow to register on the [facility] Portal for access to your information. You can also access the [facility] Patient Portal on the [employer] yen. Simply click on Health Records under PlatformQ and then click on the [facility] logo. [...] Call your local pharmacy or go to http://bit.Score The Board/8G8Am3l to find one close to you.3.Make use of household items: Use cat litter or old coffee grounds to dispose medications if other options arenot available. Mix your drugs with these household products, seal them in an airtight container andthrow it into the garbage. Call [facility]: [phone] to be sure your drugs can be [...] aware that I should contact my doctor. Patient/Distribution Operations Supervisor Signature: Date/Time: Relationship to Patient: Witness Name/Signature: Date/Time: [facility]nellffd16-32-7683 Evaluation + Plan noteExtracted from: Title:IR pre [...] paper, which has been scanned into the [facility] [address] system. _ Future Scheduled Tests Laboratory* Basic Metabolic Panel 11/23/21 * Carbamazepine Level 11/23/21 * Complete Metabolic Panel 11/23/21 [facility] 03-30-2023 History and physical note IR [...] paper, which has been scanned into the [facility] [address] system. _ Digitally Signed by MARSHALL CROCKER PA-C on 09/12/2022 01:30 PM [facility] [id number] Evaluation + Plan noteExtracted from: Title:IR pre-procedure [...] 08/28/2022 and can be found in the [facility] Records ([employer]). Harriet Leonard PA-C Interventional Radiology Pager: [phone] IR dept: [phone] Available on [facility] Future Appointments Appointment Date:09/12/2022 02:00:00 PM Scheduled Provider: Location:IR Appointment Type:IR Drainage Cath Injection for Eval Future Scheduled Tests Laboratory* Basic Metabolic Panel 11/23/21 * Carbamazepine Level 11/23/21 * Complete Metabolic Panel 11/23/21 [facility] 03-23-2023 Hospital Discharge instructions Patient Education 09/05/2022 11:49:33 Radiology- Procedure/Biopsy 09/29/2019 (CUSTOM) [facility] Radiology Procedure/Biopsy Discharge Instructions Interventional Radiology [facility] [address] [place] [address] Today, you had a Drain insertion . [...] 1 to 2 days following the procedure. Ebyk-tja-ejrqlbb pain medication should be used for pain [...] instruction below: 8:00 am- 5:00 pm call [phone] After 5:00 pm call [phone] After 24 hours, contact the physician who [...] with primary care provider Address:Unknown When: Unknown [facility] 03-23-2023 Note* IBETH Regalado Riley: SIGN, AUTHOR, PERFORM Event Display: IR Procedure Record Authored Date: IR Procedure Record Summary Primary Physician: ROSHNI FLORES PA-C Finalized Date/Time: 09/05/22 11:48:45 Pt. Name: PATRICK KOROMA Cesar Marquez/Sex: 1980 Male Med Rec #: [id number] Physician: Financial #: [id number] Pt. Type: O Room/Bed: / Admit/Disch: 09/05/22 [...] Case Attendee ROSHNI FLORES Jacque M. Allen, Sky Joe PA-C Role Performed Primary Surgeon Scrub [...] 4 Case Attendee IBETH Regalado Role Performed Electronic Design Engineer 1 Details Time In 09/05/22 11:21:00 Time [...] ZARATE Jacque Relevant images and Fermín Mejía Scientific Database Curator results are properly Sabine Joe RN Corey [...] Radiology - Action Plan Outcomes Met? Yes Digital Experience Manager IBETH Regalado Completing Procedure Plan Last Modified By: IBETH Regalado 09/05/22 11:26:48 Case Comments <None> Finalized By: IBETH Regalado Document Signatures Signed By: IBETH Regalado 09/05/22 11:48 [facility] 03-23-2023 History and physical note IR [...] 08/28/2022 and can be found in the [facility] ([facility]). Harriet Leonard PA-C Interventional Radiology Pager: [phone] IR dept: [phone] Available on [facility] Digitally Signed by HARRIET LEONARD PA-C on 09/05/2022 11:54 AM Digitally Signed by ESAU LOVE MD on 09/05/2022 03:20 PM [facility] HospitalXsqxicfz29-86-7821 Summary of episode note Discharge Instructions Thank you for allowing [facility] to assist you with your healthcare needs. [...] medication providers or retail pharmacies. Education Materials [facility] Radiology Procedure/Biopsy Discharge Instructions Interventional Radiology [facility] [address] [place] [address] Today, you had a Drain insertion . [...] 1 to 2 days following the procedure. Dyys-orr-epgfabh pain medication should be used for pain [...] instruction below: 8:00 am- 5:00 pm call [phone] After 5:00 pm call [phone] After 24 hours, contact the physician who [...] to receive it can visit one of [facility] vaccine clinics. There are many vaccine clinic locations within the [facility]. For locations and available times, please visit [email or web address]/. It is important to note that some COVID mobile vaccine clinics are held outdoors and may be canceled in rainy or stormy conditions. To learn more about pediatric vaccinations (ages 5-11), we invite you to visit the [facility] webpage. https://www.[facility].org/pages/3901-Calvl-Kbiitligqus-Luhkpoklni-Vrztt-Sgv stions.htmlTo learn more about the COVID-19 vaccine, we invite you to visit the CDC website for a list of frequently asked questions. https://www.cdc.gov/coronavirus/2019-ncov/vaccines/faq.html [facility] Patient [facility] Access Instructions: Stay connected with your healthcare team and access your personal medical information anytime with the [facility] Patient Portal.If you would like a full copy of your medical records, please contact the [facility] Medical Records Department, Friday through Friday between 8a.m. and 4:30p.m. Please follow the directions below to access the portal: 1.Access the email account you provided upon registration to the hospital.2.Look for an invitation email from [facility].3.Open the email and access the invitation link: Accept Invitation to [facility]4.Fill in the required vegas to create your [...] you will allow to register on the [facility] for access to your information. You can also access the [facility] Patient Portal on the [employer]. Simply click on Health Records under PlatformQ and then click on the [facility] logo. [...] Call your local pharmacy or go to http://[employer].Score The Board/6X6Sy1s to find one close to you.3.Make use of household items: Use cat litter or old coffee grounds to dispose medications if other options arenot available. Mix your drugs with these household products, seal them in an airtight container andthrow it into the garbage. Call [facility]: [phone] to be sure your drugs can be [...] aware that I should contact my doctor. Patient/Distribution Operations Supervisor Signature: Date/Time: Relationship to Patient: Witness Name/Signature: Date/Time: [facility]Baztljcd66-03-5320 Note IR Procedure Record Summary Primary Physician: ROSHNI FLORES PA-C Finalized Date/Time: 09/05/22 11:48:45 Pt. Name: PATRICK KOROMA/Sex: 1980 Male Med Rec #: [id number] Physician: Financial #: [id number] Pt. Type: O Room/Bed: / Admit/Disch: 09/05/22 09:48:00 - Institution: Allergies identified in patient's electronic medical record at time of printing on 09/05/22 Entry 1 Entry 2 Entry 3 Substance Keflex Keppra Tape, Paper Reaction Type Allergy Allergy Side Effect Last Modified By: Izabel Small RN, IBETH TORRES, IBETH SANCHEZ 10/31/16 23:03:04 08/10/13 02:23:55 08/23/13 02:36:21 Entry 4 Entry 5 Substance morphine naproxen Reaction Type Allergy Allergy Last Modified By: IBETH Skelton, IBETH Beaver 08/10/13 02:22:39 09/05/17 22:20:56 Case Attendance- IR Entry 1 Entry 2 Entry 3 Case Attendee ROSHNI FLORES Jacque M. Allen, Scientific Database CuratorVerito Joe PA-C Role Performed Primary Surgeon Scrub [...] 4 Case Attendee IBETH Regalado Role Performed Electronic Design Engineer 1 Details Time In 09/05/22 11:21:00 Time [...] Radiology - Action Plan Outcomes Met? Yes Digital Experience Manager IBETH Regalado Completing Procedure Plan Last Modified By: IBETH Regalado 09/05/22 11:26:48 Case Comments Finalized By: IBETH Regalado Document Signatures Signed By: IBETH Regalado 09/05/22 11:48 [facility]Jfghcotm38-10-7050 Hospital Discharge instructions Patient Education 08/28/2022 21:50:43 [...] up Rapid heart rate Shortness of breath 0318-07[address] [facility]. [address] [place] [address], [place] [address]. All rights reserved. This information is not intended as a substitute for professional medical care. Always follow yourhealthcare professional's instructions. Follow Up Care 08/28/2022 19:04:00 With:AARON DUQUE MD, Surgery Address: [address] [facility] [place] [address]- [phone] When:2-4 days [facility] 03-15-2023 Emergency department Discharge summary Discharge Instructions Thank you for allowing [facility] to assist you with your healthcare needs. The following is importantdischarge information regarding your hospital visit. Diagnosis from Today's Visit Seroma Abdominal pain What to Do Next Instructions from Your Care Team No qualifying data available. Post Acute Orders No qualifying data available. You Need to Schedule the Following Appointments Follow Up with AARON DUQUE MD, Surgery When Within 2-4 days Where: [address] [facility] [address]- [phone] Allergies Keflex Keppra (Rash) Tape, Paper (Rash) morphine (Rash) naproxen Medications Please ask your primary doctor or pharmacist before taking any other medication not listed, including over the counter drugs, herbal medications, vitamins and or supplements as they may interact withyour home medications. What How Much When Why Instructions Last Dose New acetaminophen-hydrocodone ([place] 325- 5 mg oral tablet) 1 tab(s) [...] up Rapid heart rate Shortness of breath 2719-9021 [employer] [facility]. [address] [place] [address], [place] [address]. All rights reserved. This information is not intended as a substitute for professional medical care. Always follow yourhealthcare professional's instructions. Additional Information VACCINATE! IT SAVES LIVES! Members of the community who have not yet received the COVID-19 vaccine and would like to receive it can visit one of [facility] vaccine clinics. There are many vaccine clinic locations within the [facility]. For locations and available times, please visit www.[email or web address].[place].gov/. It is important to note that some COVID mobile vaccine clinics are held outdoors and may be canceled in rainy or stormy conditions. To learn more about pediatric vaccinations (ages 5-11), we invite you to visit the [facility] webpage. https://www.[facility].org/pages/6637-Mdgup-Aaecfgtzepi-Tkrqjlansg-Wpsmw-Wvm stions.htmlTo learn more about the COVID-19 vaccine, we invite you to visit the CDC website for a list of frequently asked questions. https://www.cdc.gov/coronavirus/2019-ncov/vaccines/faq.html [facility] Patient [facility] Access Instructions: Stay connected with your healthcare team and access your personal medical information anytime with the [facility] Patient Portal. If you would like a full copy of your medical records please contact the [facility] Medical Records Department Friday through Friday between 8a.m. and 4:30p.m. Please follow the directions below to access the portal: 1.Access the email account you provided upon registration to the [facility].2.Look for an invitation email from [facility].3.Open the email and access the invitation link: Accept [facility]itation to [facility]4.Fill in the required vegas to create your account. Sign into [email or web address] with your username and password that you [...] you will allow to register on the [facility] Patient Portal for access to your information. You can also access the [facility] Patient Portal on the Search[employer] yen. Simply click on Health Records under PlatformQ and then click on the Sense Platform logo. HOW TO SAFELY DISPOSE OF PRESCRIPTION [...] Call your local pharmacy or go to http://bit.Score The Board/2N5Rp7t to find one close to you.3.Make use of household items: Use cat litter or old coffee grounds to dispose medications if other options arenot available. Mix your drugs with these household products, seal them in an airtight container andthrow it into the garbage. Call [facility]: [phone] to be sure your drugs can be [...] aware that I should contact my doctor. Patient/Distribution Operations Supervisor Signature: Date/Time: Relationship to Patient: Witness Name/Signature: Date/Time: [facility]03-15-2023 Note ORIGINAL EXAMINATION: CT OF THE ABDOMEN [...] Sign Date: 08/28/2022 9:32:42 PM [facility]ing [id number] Note ORIGINAL EXAMINATION: CT OF THE ABDOMEN [...] Sign Date: 08/28/2022 9:32:42 PM Ordering Provider: ANJEL [facility]03-05-2023 Hospital Discharge instructions Patient Education 08/18/2022 [...] up Rapid heart rate Shortness of breath 2608-8433 The [employer]. [address] [place] [address]. All rights reserved. This information is not intended as a substitute for professional medical care. Always follow yourhealthcare professional's instructions. Follow Up Care 08/18/2022 11:30:43 With:AARON DUQUE MD, Surgery Address: [address] [place] [address]- [phone] When:2-4 days [facility] 03-05-2023 Note ORIGINAL EXAMINATION: CT OF [...] 08/18/2022 4:08:21 PM Ordering Provider: JONELLE GERARD [id number] Emergency department Discharge summary Discharge Instructions Thank [...] Surgery When Within 2-4 days Where: [address] [place] [address] [phone] Allergies Keflex Keppra (Rash) Tape, Paper (Rash) morphine (Rash) naproxen Medications Please ask your primary doctor or pharmacist before taking any other medication not listed, including over the counter drugs, herbal medications, vitamins and or supplements as they may interact withyour home medications. What How Much When Why Instructions Last Dose New acetaminophen-hydrocodone (Yorkville 325- 5 mg oral tablet) 1 tab(s) [...] up Rapid heart rate Shortness of breath 3563-[address] [employer] [place] [address], [place] [address]. All rights reserved. This information is not intended as a substitute for professional medical care. Always follow yourhealthcare professional's instructions. Additional Information VACCINATE! IT SAVES LIVES! Members of the community who have not yet received the COVID-19 vaccine and would like to receive it can visit one of [facility] vaccine clinics. There are many vaccine clinic locations within the [facility]. For locations and available times, please visit www.gettheshot.coronavirus.[place].gov/. It is important to note that some COVID mobile vaccine clinics are held outdoors and may be canceled in rainy or stormy conditions. To learn more about pediatric vaccinations (ages 5-11), we invite you to visit the [facility] webpage. https://www.akronConcert Pharmaceuticalss.org/pages/4821-Umcqg-Cbvdlylsmhj-Mbxznlhbht-Tecpu-Oln stions.htmlTo learn more about the COVID-19 vaccine, we invite you to visit the CDC website for a list of frequently asked questions. https://www.cdc.gov/coronavirus/2019-ncov/vaccines/faq.html [facility] Patient [facility] Access Instructions: Stay connected with your healthcare team and access your personal medical information anytime with the [facility] Patient Portal. If you would like a full copy of your medical records please contact the [facility] Medical Records Department Friday through Friday between 8a.m. and 4:30p.m. Please follow the directions below to access the portal: 1.Access the email account you provided upon registration to the hospital.2.Look for an invitation email from [facility].3.Open the email and access the invitation link: Accept Invitation to [facility]4.Fill in the required vegas to create your account. Sign into [email or web address] with your username and password that you [...] you will allow to register on the [facility] Patient Portal for access to your information. You can also access the [facility] Patient Portal on the Search[employer]ise [employer] yen. Simply click on Health Records under PlatformQ and then click on the Wandy logo. [...] Call your local pharmacy or go to http://[employer].Score The Board/3G3Tr3k to find one close to you.3.Make use of household items: Use cat litter or old coffee grounds to dispose medications if other options arenot available. Mix your drugs with these household products, seal them in an airtight container andthrow it into the garbage. Call [facility]: [phone] to be sure your drugs can be [...] aware that I should contact my doctor. Patient/Distribution Operations Supervisor Signature: Date/Time: Relationship to Patient: Witness Name/Signature: Date/Time: [id number] Note ORIGINAL EXAMINATION: CT OF THE ABDOMEN [...] Sign Date: 08/18/2022 4:08:21 PM Ordering Provider: [facility]02-06-2023 Hospital Discharge instructions Patient Education 07/22/2022 [...] stores. You don t need a prescription. 3820-3691 The [employer]. [address] [place] [address], [place] [address]. All rights reserved. This information is not intended as a substitute for professional medical care. Always follow yourhealthcare professional's instructions. Follow Up Care 07/22/2022 10:03:39 With:Call Physician Referral Address:Unknown When:2-4 days With:Follow up with primary care provider Address:Unknown When:2-4 days [facility] 02-06-2023 Note Discharge Instructions Thank you for allowing [facility] to assist you with your healthcare needs. [...] Why Instructions Last Dose Unchanged acetaminophen- hydrocodone ([place] 325- 5 mg oral tablet) 1 tab(s) [...] stores. You don t need a prescription. 3363-3953 [employer]. [address] [place] [address]. All rights reserved. This information is not intended as a substitute for professional medical care. Always follow yourhealthcare professional's instructions. Additional Information VACCINATE! IT SAVES LIVES! Members of the community who have not yet received the COVID-19 vaccine and would like to receive it can visit one of [facility] vaccine clinics. There are many vaccine clinic locations within the [facility]. For locations and available times, please visit www.gettheshot.coronavirus.[place].org. It is important to note that some COVID mobile vaccine clinics are held outdoors and may be canceled in rainy orstormy conditions. To learn more about pediatric vaccinations (ages 5-11), we invite you to visit the [facility] webpage. https://www.[facility].org/pages/1117-Cnanw-Zfyxbjthtbx-Fmhuuvvdip-Kulnn-Oqa stions.htmlTo learn more about the COVID-19 vaccine, we invite you to visit the [employer] website for a list of frequently asked questions. https://wandy.org/assets/Ruiwthlr-jwr-Amoifzmz/raxvs-Cedtzqn-Ozkuqutdvt _Asked-Questions.pdf [facility] Patient [facility] Access Instructions: Stay connected with your healthcare team and access your personal medical information anytime with the [facility] Patient [facility]. If you would like a full copy of your medical records please contact the [facility] Medical Records Department Friday through Friday between 8a.m. and 4:30p.m. Please follow the directions below to access the portal: 1.Access the email account you provided upon registration to the [facility].2.Look for an invitation email from [facility].3.Open the email and access the invitation link: Accept Invitation to [facility]4.Fill in the required vegas to create your account. Sign into [email or web address] with your username and password that you [...] you will allow to register on the [facility] for access to your information. You can also access the [facility] Patient Portal on the Search[employer] yen. Simply click on Health Records under People PowerData and then click on the Wandy logo. [...] Call your local pharmacy or go to http://bit.Score The Board/2E5Kt5b to find one close to you.3.Make use of household items: Use cat litter or old coffee grounds to dispose medications if other options arenot available. Mix your drugs with these household products, seal them in an airtight container andthrow it into the garbage. Call [facility]: [phone] to be sure your drugs can be [...] aware that I should contact my doctor. Patient/Distribution Operations Supervisor Signature: Date/Time: Relationship to Patient: Witness Name/Signature: Date/Time[facility] Consult note Date of Service 07/22/2022 Reason for Consultation Nausea and vomiting x24 to [address] Blanco Shaw History of Present Illness 42-year-old male who underwent an open repair of a recurrent umbilical/ventral hernia with anteriorcomponent separation here at [facility] 4 days ago. The patient states that [...] He admits that he was taking his Yorkville on schedule every 6 hours and not [...] vomiting due to the regular use of Yorkville taking it as scheduled every 6 hours [...] works for him. Avoid using any further [place] unless absolutely necessary and take regular doses of Tylenol alternating with ibuprofen. As his nausea resolves hopefully over the next couple days he can reintroduce solid food. Slowly. He will have a follow-up on in the office. A prescription for Zofran has been sent to his pharmacy which he can tack picker and use as needed. I donot [...] Medications Inpatient No active inpatient medications Home Yorkville 325- 5 mg oral tablet, 1 tab(s), [...] AARON DUQUE MD on 07/22/2022 01:23 PM [facility]02-06-2023 Note ORIGINAL EXAMINATION: CT OF THE ABDOMEN [...] Sign Date: 07/22/2022 11:41:58 AM Ordering Provider: [facility]-06[facility]2023 Note ORIGINAL EXAMINATION: CT OF THE ABDOMEN [...] Sign Date: 07/22/2022 11:41:58 AM [facility] Hospital Discharge instructions Patient Education 07/18/2022 11:53:26 [...] Document Reviewed: 06/21/2019 Elsevier Patient Education 2020 Radha Marcus. 07/18/2022 11:53:21 How to Use an Incentive [...] as possible. If the spirometer includes a middle school sports coach indicator, use this to guide you [...] 10/13/2007 Document Revised: 06/25/2018 Document Reviewed: 04/15/2018 Energate Patient Education 2020 Narr8. 07/18/2022 11:45:57 Surgical Drain Home Care Surgical [...] placed at your back, or any other foxu-ua-ituql area, ask another person to assist you [...] and water are not available, use hand park guard. 3.Remove the old dressing. Avoid using scissors [...] and water are not available, use hand park guard. 3.Loosen any pins or clips that hold [...] placed at your back, or any other jnsg-wl-klqeq area, ask another person to assist you. Contact your health care provider if you have redness, swelling, or pain around your drain area. This information is not intended to replace advice given to you by your health care provider. Make sure you discuss any questions you have with your health care provider. Document Released: 05/30/2001 Document Revised: 07/07/2019 Document Reviewed: 07/07/2019 Energate Patient Education 2019 Narr8. 07/18/2022 11:45:56 8- Ryan Pantoja Drain (03/2018)(CUSTOM) [...] Document Reviewed: 06/03/2014 ExitCare Patient Information 2015 [facility] [place], [facility]. This information is not intended to replace [...] garbage bag. Soap and water, or hand park guard. Wound cleanser or salt-water solution (saline). New [...] soap and water are notavailable, use hand park guard. 3.Set up a clean station for wound [...] soap and water are notavailable, use hand park guard. Clean your wound Wear gloves, protective clothing, [...] soap and water are notavailable, use hand park guard. Apply new dressing Wear gloves, protective clothing, [...] soap and water are notavailable, use hand park guard. 8.Turn the pump back on. The sponge dressing should collapse. Do not change the settings on the machine without talking to a health care provider. 9.Replace the container in the pump that collects fluid if it is full. Replace the container per the security operations manager's instructions or at least once a week, [...] all clamps are open. Do not use kiwq-vte-gacastv medicated or antiseptic creams, sprays, liquids, or [...] 08/24/2012 Document Revised: 09/24/2019 Document Reviewed: 08/20/2019 ElsePhyzios Patient Education 2020 Energate Inc. 07/18/2022 11:39:25 Nausea and Vomiting, Adult Nausea [...] water added (diluted fruit juice). Eat bland, pxbf-fn-nuocpd foods in small amounts as you are able. These foods include bananas, applesauce, rice, lean meats, toast, and crackers. Avoid fluids that contain a lot of sugar or caffeine, such as energy drinks, sports drinks, and soda. Avoid alcohol. Avoid spicy or fatty foods. General instructions Take pbii-lno-nbavhaf and prescription medicines only as told by your health care provider. Drink enough fluid to keep your urine pale yellow. Wash your hands often using soap and water. If soap and water are not available, use hand park guard. Make sure that all people in your [...] eating and drinking to prevent dehydration. Take bhir-jtn-imcpcqa and prescription medicines only as told by [...] 06/02/2006 Document Revised: 09/24/2019 Document Reviewed: 11/10/2018 Energate Patient Education 2020 Narr8. 07/18/2022 11:39:15 Monitored Anesthesia Care, Care After [...] before eating solid foods. General instructions Take qtvp-git-nqjcqae and prescription medicines only as told by [...] 09/22/2016 Document Revised: 08/31/2018 Document Reviewed: 09/22/2016 Energate Patient Education 2020 Narr8. 07/18/2022 11:39:09 Open Hernia Repair, Adult, Care [...] and water are not available, use hand park guard. ?Change your dressing as told by your [...] your urine clear or pale yellow. ?Take mafz-oup-kyecjdz or prescription medicines. ?Eat foods that are high in fiber, such as fresh fruits and vegetables, whole grains, and beans. ?Limit foods that are high in fat and processed sugars, such as fried and sweet foods. Take irpl-abp-rtwxqrb and prescription medicines only as told by [...] 12/20/2005 Document Revised: 05/15/2018 Document Reviewed: 11/13/2016 Energate Patient Education 2020 Narr8. Follow Up Care 07/02/2022 10:17:34 With:AARON DUQUE MD, Surgery Address: [address] [place] [phone] When:07/25/2022 10:00:00 Comments:Follow-up as scheduled [facility] 02-02-2023 Summary of episode note Discharge Instructions Thank you for allowing [facility] to assist you with your healthcare needs. The following is importantdischarge information regarding your hospital visit. Your Care Team AARON DUQUE MD Your Diagnosis Acute post-operative pain What to do next Follow Up Appointments Follow Up with AARON DUQUE MD, Surgery When In 2 weeks Why: Call office to schedule follow up appointment. Where: [address] [phone] The Following Activity and Diet Have Been Ordered for You Discharge Activity - Ordered -- Sexual [place] Restricted No bending, twisting, crawling or squatt, [...] When Why Instructions Last Dose New acetaminophen-hydrocodone (Yorkville 325- 5 mg oral tablet) 1 tab(s) by mouth Every 4 hours as needed for Pain, scale 4-6 Acute post-operative pain Duration: 7 Days Pickup at [facility]/pharmacy #[id number] Unchanged carBAMazepine (TEGretol 200 mg oral tablet) 3 tab(s) by mouth Two (2) times a day Seizure Post-operative state s/p umbilical hernia repair, possible seizure following surgery Pharmacy Information [facility]/pharmacy #[id number]: [address], [place] [phone] Please take this list to your next [...] Document Reviewed: 06/21/2019 Elsevier Patient Education 2019 Energate Inc. How To Use an Incentive Spirometer [...] as possible. If the spirometer includes a middle school sports coach indicator, use this to guide you [...] 10/13/2007 Document Revised: 06/25/2018 Document Reviewed: 04/15/2018 Energate Patient Education 2020 Narr8. Surgical Drain Home Care Surgical drains are [...] placed at your back, or any other xjqe-bv-hyrjm area, ask another person to assist you [...] and water are not available, use hand park guard. 3. Remove the old dressing. Avoid using [...] and water are not available, use hand park guard. 3. Loosen any pins or clips that [...] placed at your back, or any other qijf-qc-cqzbe area, ask another person to assist you. [...] Document Reviewed: 07/07/2019 Elsevier Patient Education 2020 [employer] Inc. Ryan Pantoja Drain Patient Education After [...] Document Reviewed: 06/03/2014 ExitCare Patient Information 2015 [employer]. This information is not intended to replace [...] garbage bag. Soap and water, or hand park guard. Wound cleanser or salt-water solution (saline). New [...] and water are not available, use hand park guard. 3. Set up a clean station for [...] and water are not available, use hand park guard. Clean your wound Wear gloves, protective clothing, [...] and water are not available, use hand park guard. Apply new dressing Wear gloves, protective clothing, [...] and water are not available, use hand park guard. 8. Turn the pump back on. The sponge dressing should collapse. Do not change the settings on the machine without talking to a health care provider. 9. Replace the container in the pump that collects fluid if it is full. Replace the container per the security operations manager's instructions or at least once a week, [...] all clamps are open. Do not use ctvo-ksi-llxlvhr medicated or antiseptic creams, sprays, liquids, or [...] Document Reviewed: 08/20/2019 Elsevier Patient Education 2020 Narr8. Nausea and Vomiting, Adult Nausea is the [...] water added (diluted fruit juice). Eat bland, xwxs-hq-figrws foods in small amounts as you are able. These foods include bananas, applesauce, rice, lean meats, toast, and crackers. Avoid fluids that contain a lot of sugar or caffeine, such as energy drinks, sports drinks, and soda. Avoid alcohol. Avoid spicy or fatty foods. General instructions Take xgrw-kcf-aositbx and prescription medicines only as told by your health care provider. Drink enough fluid to keep your urine pale yellow. Wash your hands often using soap and water. If soap and water are not available, use hand park guard. Make sure that all people in your [...] eating and drinking to prevent dehydration. Take wwae-ujp-pipwhpi and prescription medicines only as told by [...] 06/02/2006 Document Revised: 09/24/2019 Document Reviewed: 11/10/2018 Energate Patient Education 2020 [employer] Inc. Monitored Anesthesia Care, Care After These [...] before eating solid foods. General instructions Take hkxi-agf-vegvecu and prescription medicines only as told by [...] 09/22/2016 Document Revised: 08/31/2018 Document Reviewed: 09/22/2016 Energate Patient Education 2020 [employer] Inc. Open Hernia Repair, Adult, Care After [...] and water are not available, use hand park guard. ? Change your dressing as told by [...] urine clear or pale yellow. ? Take ujmb-ark-rkiurln or prescription medicines. ? Eat foods that are high in fiber, such as fresh fruits and vegetables, whole grains, and beans. ? Limit foods that are high in fat and processed sugars, such as fried and sweet foods. Take hfhy-igs-bsbvlft and prescription medicines only as told by [...] 12/20/2005 Document Revised: 05/15/2018 Document Reviewed: 11/13/2016 Energate Patient Education 2020 Narr8. Additional Information VACCINATE! IT SAVES LIVES! Members of the community who have not yet received the COVID-19 vaccine and would like to receive it can visit one of [facility] vaccine clinics. There are many vaccine clinic locations within the [facility]. For locations and available times, please visit https://[email or web address]/. It is important to note that some COVID mobile vaccine clinics are held outdoors and may be canceled in rainy or stormy conditions. To learn more about pediatric vaccinations (ages 5-11), we invite you to visit the [facility] webpage. https://www.[facility].org/pages/5168-Zfaen-Ovptgrfrxlr-Jvfftosyyi-Odvbf-Rvt stions.htmlTo learn more about the COVID-19 vaccine, we invite you to visit the [facility] website for a list of frequently asked questions. https://[email or web address]/assets/Jdrrkywe-cit-Smjjjbwe/nvndb-Jjzmuio-Wgtcykitli _Asked-Questions.pdf [facility] Patient [facility] Access Instructions: Stay connected with your healthcare team and access your personal medical information anytime with the [facility] Patient Portal.If you would like a full copy of your medical records, please contact the [facility] Medical Records Department, Friday through Friday between 8a.m. and 4:30p.m. Please follow the directions below to access the portal: 1.Access the email account you provided upon registration to the [facility].2.Look for an invitation email from [facility].3.Open the email and access the invitation link: Accept Invitation to [facility]4.Fill in the required vegas to create your account. Sign into [email or web address] with your username and password that you [...] you will allow to register on the [facility] Patient Portal for access to your information. You can also access the [facility] Patient Portal on the Piper. Simply click on Health Records under PlatformQ and then click on the Wandy logo. HOW TO SAFELY DISPOSE OF PRESCRIPTION MEDICATIONS Please use one of the following methods to safely dispose of your unused medications. 1.Use a drug disposal kit: the drug disposal pouch allows you to safely discard your old and unuseddrugs. Ask your nurse to give you one when you are dischar (more content not included)... [facility]02-02-2023 Anesthesiology Consult note Patient: PATRICK KOROMA Age: [...] list: Medical Acid reflux / SNOMED CT 553583376 / Confirmed 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 / SNOMED CT [id number] / Confirmed Fall / SNOMED CT 3476885 / Confirmed Electric shock / SNOMED CT 8538097563 / Confirmed Full dentures / SNOMED CT 938852679 / Confirmed Postprocedural hematoma of skin and subcutaneous tissue following other procedure / SNOMED CT 186081527 / Confirmed Seizure / SNOMED CT 315954155 / Confirmed TIA / SNOMED CT 483075844 / Confirmed Umbilical hernia / SNOMED CT 7060309834 / Confirmed, Active Problems (10) Acid reflux 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 Electric shock Fall Full dentures Postprocedural hematoma of skin and subcutaneous tissue following other procedure Seizure TIA Tobacco use Umbilical hernia Histories Past Medical History: Active TIA (867804167) Acid reflux (492905580) Seizure (472336157) Family History: Congenital heart disease Brother Stroke Mother Father Procedure history: Repair of recurrent ventral hernia (209006858) on 11/22/2021 at 41 Years. History of repair of umbilical hernia (0965730622) in 2019 at 39 Years. Appendectomy (114719897). 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-[facility] Tobacco 2Risk Assessment: High Risk 07/01/2022 [...] Signs(last 24 hrs) Last Charted Heart Rate Cggeryxun67 bpm (JUL 18 08:50) Resp Rate 18 br/min (JUL 18 06:48) ZHM383 mmHg (JUL 18 08:50) DBP68 mmHg (JUL 18 08:50) Measurements from flowsheet : Measurements 07/18/2022 6:48 EST Height 188 cm Admission Weight 134 kg [place] Body Weight 82.24 kg Admission Body Mass [...] Method N/A 07/18/2022 8:02 EST SN - MT - Medication MARCAINE BUPIVACAINE 0.5% 30ML SN - MT - Route of Administration Local SN - MT - Route of Administration Local SN - MT - By (Single) SN - MT - By (Single) SN - MT - By (Single) SN - MT - By (Single) 07/18/2022 7:57 EST SN - PP - Body Position Supine Standard Intra-op 07/18/2022 7:56 EST SN - PTCare - Anti-thromboembolism Ayla Sequential Compression Device (SCD) 07/18/2022 7:49 EST SN - CAt - Case Attendee SN - CAt - Case Attendee SN - CAt - Case Attendee SN - CAt - Case Attendee SN - CAt - Role Performed RADIO DIVISION CAPTAIN SN - CAt - Role Performed Commutator Tester 1 07/18/2022 7:30 EST Primary Pain Intensity [...] Surgeon SN - CAt - Role Performed Electronic Design Engineer 1 SN - CAt - Role Performed Scrub 1 07/18/2022 7:12 EST Infectious Disease Symptoms Patient states no symptoms Safety Brochure Information Reviewed Unable to complete Wandy Mcneal Video Viewed No Teaching Evaluation Needs practice/supervision Admission Note-Nursing Same Day Patient History (Modified) 07/18/2022 7:10 EST Lactated Ringers Injection Begin Bag 1,000 mL mL 07/18/2022 6:48 EST Height 188 cm Admission Weight 134 kg [place] Body Weight 82.24 kg Admission Body Mass [...] no difficulties Skin Temperature Warm Skin Description Yantis, Dry Skin Integrity Intact Mucous Membrane Color Yantis IV Present Present Continuous IV Infusions LR [...] Cooperative Orientation Oriented x 4 Allergies Yes Popcorn Attendant On Yes Consent Form Signed Yes Patient [...] Void 07/18/2022 7:01 . Assessment and Plan [place] Society of Anesthesiologists (ASA) physical status classification: Class III. Anesthetic Preoperative Plan Premedication: intravenous. Anesthetic technique: General. Induction: intravenously. Maintenance airway: Oral endotracheal tube. Postoperative pain management: Per surgeon. Risks discussed: nausea, vomiting, sore throat. Informed consent: signed by patient. Digitally Signed by SOFÍA OROZCO on 07/18/2022 09:03 AM [facility]01-30-2023 Evaluation + Plan note Future Appointments Diagnostic Tests Pending * [facility] [place] (Blood Specimens) 07/15/22 Future Scheduled Tests Laboratory* Basic Metabolic Panel 11/23/21 * Carbamazepine Level 11/23/21 * Complete Met[facility] Discharge instructions Patient Education 07/15/2022 [...] told. 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 [address] [place] [address]. All rights reserved. This information is not intended as a substitute for professional medical care. Always follow yourhealthcare professional's instructions. Follow Up Care 07/15/2022 00:22:57 With:NEUROCARCHIE, PARKER Address: When:2-4 days [facility] 01-30-2023 Note Discharge Instructions Thank you for allowing [facility] to assist you with your healthcare needs. The following is importantdischarge information regarding your hospital visit. Diagnosis from Today's Visit Seizure disorder, Seizure Possible Seizure What to Do Next Instructions from Your Care Team No qualifying data available. Post Acute Orders No qualifying data available. You Need to Schedule the Following Appointments Follow Up with [facility] When Within 2-4 days Where: Allergies Keflex [...] told. 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 [address] [place] [address], [place] [address]. All rights reserved. This information is not intended as a substitute for professional medical care. Always follow yourhealthcare professional's instructions. Additional Information VACCINATE! IT SAVES LIVES! Members of the community who have not yet received the COVID-19 vaccine and would like to receive it can visit one of [facility] vaccine clinics. There are many vaccine clinic locations within the [facility]. For locations and available times, please visit [email or web address]. It is important to note that some COVID mobile vaccine clinics are held outdoors and may be canceled in rainy orstormy conditions. To learn more about pediatric vaccinations (ages 5-11), we invite you to visit the [facility] webpage. [email or web address]://[email or web address]/pages/[email or web address]-Flxabjwwsqo-Lnksyuxtkp-Xwuks-Our stions.htmlTo learn more about the COVID-19 vaccine, we invite you to visit the [facility] website for a list of frequently asked questions. [email or web address] _[email or web address] [facility] Patient Portal Access Instructions: Stay connected with your healthcare team and access your personal medical information anytime with the [facility] Patient Portal. If you would like a full copy of your medical records please contact the [facility] Medical Records Department Friday through Friday between 8a.m. and 4:30p.m. Please follow the directions below to access the portal: 1.Access the email account you provided upon registration to the hospital.2.Look for an invitation email from [facility].3.Open the email and access the invitation link: Accept Invitation to [facility]4.Fill in the required vegas to create your account. Sign into [email or web address] with your username and password that you [...] you will allow to register on the [facility] Patient Portal for access to your information. You can also access the [facility] Patient Portal on the [employer] yen. Simply click on Health Records under PlatformQ and then click on the Sense Platform logo. HOW TO SAFELY DISPOSE OF PRESCRIPTION [...] Call your local pharmacy or go to http://[employer].Score The Board/4H4Hk6z to find one close to you.3.Make use of household items: Use cat litter or old coffee grounds to dispose medications if other options arenot available. Mix your drugs with these household products, seal them in an airtight container andthrow it into the garbage. Call [facility]: [phone] to be sure your drugs can be [...] aware that I should contact my doctor. Patient/Distribution Operations Supervisor Signature: Date/Time: Relationship to Patient: Witness Name/Signature: Date/Time: [facility]01-30-2023 Note ORIGINAL EXAMINATION: CT OF THE [...] Date: 07/15/2022 1:25:42 AM Ordering Provider: DAV[facility]01-30-2023 Note ORIGINAL EXAMINATION: CT OF THE [...] Sign Date: 07/15/2022 1:25:42 AM Ordering Provider: [facility]01-13-2023 Hospital Discharge instructions Patient Education [...] blood pressure monitors at most pharmacies. The [place] [employer] Association recommends the following guidelines for [...] face You have problems speaking or seeing 7746-9188 [employer]. [address] [place] [address], [place] [address]. All rights reserved. This information is not [...] or as directed by your healthcare provider 2983-3630 [employer]. [address] [place] [address]. All rights reserved. This information is not [...] foods again, start with small amounts of ixgx-al-rmkeqh, low- fat foods. These include apple sauce, [...] increase stomach acid. Don't use aspirin or vmvq-hha-kpnwotw pain and fever medicines, if possible. This includes nonsteroidal anti-inflammatory drugs (NSAIDs). Lose excess weight. Finish eating at least 2 hours before you go to bed or lie down. Raise the head of your bed. 0683-8493 [employer]. [address] [place] [address], [place] [address]. All rights reserved. This information is not [...] the referral doctor. With:AARON DUQUE Address: [address] [address] [phone] Business (1) When:2-4 days Comments:Schedule an appointment for close follow-up.Continue Tylenol for pain as needed.Use [place] as prescribed for severe pain as needed.Return to the ED if symptoms worsen. [facility] 01-13-2023 Note Discharge Instructions Thank you for allowing [facility] to assist you with your healthcare needs. [...] Continue Tylenol for pain as needed. Use [place] as prescribed for severe pain as needed. Return to the ED if symptoms worsen. Where: [address] [facility] [address] [place] [address]- [phone] Business (1) Allergies Keflex Keppra (Rash) Tape, Paper (Rash) morphine (Rash) naproxen Medications Please ask your primary doctor or pharmacist before taking any other medication not listed, including over the counter drugs, herbal medications, vitamins and or supplements as they may interact withyour home medications. What How Much When Why Instructions Last Dose New acetaminophen-hydrocodone (Yorkville 325- 5 mg oral tablet) 1 tab(s) [...] blood pressure monitors at most pharmacies. The [place] Heart Association recommends the following guidelines for [...] face You have problems speaking or seeing 8672-0221 [employer]. [address] [place] [address]. All rights reserved. This information is not [...] or as directed by your healthcare provider 7136-6361 [employer]. [address] [place] [address]. All rights reserved. This information is not [...] foods again, start with small amounts of chik-us-ezcezn, low- fat foods. These include apple sauce, [...] increase stomach acid. Don't use aspirin or mxsc-xtc-wfqgmza pain and fever medicines, if possible. This includes nonsteroidal anti-inflammatory drugs (NSAIDs). Lose excess weight. Finish eating at least 2 hours before you go to bed or lie down. Raise the head of your bed. 7539-6407 The In[employer]. [address] [place] [address], [place] [address]. All rights reserved. This information is not intended as a substitute for professional medical care. Always follow yourhealthcare professional's instructions. Additional Information VACCINATE! IT SAVES LIVES! Members of the community who have not yet received the COVID-19 vaccine and would like to receive it can visit one of [facility] vaccine clinics. There are many vaccine clinic locations within the [facility]. For locations and available times, please visit [email or web address]. It is important to note that some COVID mobile vaccine clinics are held outdoors and may be canceled in rainy orstormy conditions. To learn more about pediatric vaccinations (ages 5-11), we invite you to visit the [facility] webpage. https://www.[email or web address]/pages/5875-Yhrnm-Ufvbmnejnmq-Ywojfvfycz-Uksif-Qdl stions.htmlTo learn more about the COVID-19 vaccine, we invite you to visit the [facility] website for a list of frequently asked questions. [email or web address] _[email or web address].pdf [facility] Access Instructions: Stay connected with your healthcare team and access your personal medical information anytime with the [facility] Patient Portal. If you would like a full copy of your medical records please contact the [facility] Medical Records Department Friday through Friday between 8a.m. and 4:30p.m. Please follow the directions below to access the portal: 1.Access the email account you provided upon registration to the [facility].2.Look for an invitation email from [facility].3.Open the email and access the invitation link: Accept Invitation to [facility]4.Fill in the required vegas to create your account. Sign into [email or web address] with your username and password that you [...] you will allow to register on the [facility] Patient Portal for access to your information. You can also access the [facility] Patient Portal on the [employer] yen. Simply click on Health Records under [employer] and then click on the Sense Platform logo. HOW TO SAFELY DISPOSE OF PRESCRIPTION [...] Call your local pharmacy or go to http://[employer].Score The Board/7U1Jc2x to find one close to you.3.Make use of household items: Use cat litter or old coffee grounds to dispose medications if other options arenot available. Mix your drugs with these household products, seal them in an airtight container andthrow it into the garbage. Call [facility]: [phone] to be sure your drugs can be [...] aware that I should contact my doctor. Patient/Distribution Operations Supervisor Signature: Date/Time: Relationship to Patient: Witness Name/Signature: Date/Time: [facility]01-12-2023 Note ORIGINAL EXAMINATION: CT OF [...] Date: 06/27/2022 11:27:05 PM Ordering Provider: YARA HENSON [place] [address]-12-2023 Note ORIGINAL EXAMINATION: CT OF THE ABDOMEN [...] Date: 06/27/2022 11:27:05 PM Ordering Provider: YARA [facility]01-05-2023 Hospital Discharge instructions* Discharge Instructions* ERIC Mandel - 06/20/2022 12:31 AM EST Please take medication as prescribed Please follow up with your Physicians as instructed in this discharge paperwork Thank you for choosing [facility] I appreciate your patience Please return to the emergency department if your symptoms worsen, or new symptoms develop as discussed documented in this [facility]01-04-2023 Emergency department Note* ERIC Mandel - 06/19/2022 7:06 PM EST [facility] ED EMERGENCY DEPARTMENT ENCOUNTER Pt Name: Patrick [...] patient come from an ECF, SNF, Rehab, Shelter or other Congregate setting: no (If yes [...] upper and lower extremities bilateral with normal retail and restaurant associate strength, normal plantar flexion and dorsiflexion. Skin: Findings: No erythema or rash. Neurological: General: No focal deficit present. Mental Status: He is oriented to person, place, and time. Comments: Cranial Nerves 2-12 are intact without without any neurological deficits Normal ikopis-ph-yikcoc, ottiox-gr-drwv, alternating hands, heel to tong test bilateral [...] Medical Decision Making Problems Addressed: Seizure (CMS/HCC) ([facility]): complicated acute illness or injury Amount and/or [...] none Procedures FINAL IMPRESSION 1. Seizure (CMS/HCC) ([facility]) DISPOSITION/PLAN DISPOSITION Discharge 06/20/2022 12:30:39 AM PATIENT REFERRED TO: [facility] [address] [facility] [address] Schedule an appointment as soon as possible for a visit in 2 days [facility] [address] [facility] [address] Schedule an appointment as soon as possible for a visit in 1 week [facility] [address] [facility] [address] Go to If symptoms worsen DISCHARGE MEDICATIONS: New Prescriptions No medications on file (Please note: Portions of this note were completed with a voice recognition program. Efforts were made to edit thedictations but occasionally words and phrases are mis-transcribed.) Form v2016.J.[id number] ERIC Mandel (electronically signed) Emergency Medicine Provider ERIC Mandel 06/20/22 0034 ERIC Mandel 06/20/22 0038 documented in this [facility]01-04-2023 Physician Emergency department Note* ERIC Mandel - 06/19/2022 7:06 PM EST [facility] EMERGENCY DEPARTMENT ENCOUNTER Pt Name: Patrick [...] patient come from an ECF, SNF, Rehab, Shelter or other Congregate setting: no (If yes [...] HISTORY Past Medical History: Diagnosis Date Seizures (CMS/[facility]) SURGICAL HISTORY Past Surgical History: [...] upper and lower extremities bilateral with normal retail and restaurant associate strength, normal plantar flexion and dorsiflexion. Skin: Findings: No erythema or rash. Neurological: General: No focal deficit present. Mental Status: He is oriented to person, place, and time. Comments: Cranial Nerves 2-12 are intact without without any neurological deficits Normal bsctot-uu-zphxkt, xrkfbp-hc-klfn, alternating hands, heel to tong test bilateral [...] Discharge 06/20/2022 12:30:39 AM PATIENT REFERRED TO: [facility] [address] [facility] [address] Schedule an appointment as soon as possible for a visit in 2 days [facility] [address] [facility] [address] Schedule an appointment as soon as possible for a visit in 1 week [facility] [address] [facility] [address] Go to If symptoms worsen DISCHARGE MEDICATIONS: New Prescriptions No medications on file (Please note: Portions of this note were completed with a voice recognition program. Efforts were made to edit thedictations but occasionally words and phrases are mis-transcribed.) Form v2016.J.[id number] ERIC Mandel (electronically signed) Emergency Medicine Provider ERIC Mnadel 06/20/224 ERIC Mandel 06/20/22 0038 [employer] Phone: [phone] 239-362812-17-2022 Hospital Discharge instructions Patient Education 05/31/2022 23:54:43 [...] or as directed by your healthcare provider 2508-5857 The In[employer]. [address] [place] [address]. All rights reserved. This information is not [...] blue color of the hand or foot [phone] [employer]. [address] [place] [address]. All rights reserved. This information is not intended as a substitute for professional medical care. Always follow yourhealthcare professional's instructions. Follow Up Care 05/31/2022 21:06:21 With:AARON DUQUE Address: [address] [facility] [address] [place] [address] [phone] Business (1) When:3-7 days Comments:Schedule appointment for follow-up.Use Tylenol or Motrin for pain as needed.Use [place] as prescribedfor severe pain as needed.Return to the ED if symptoms worsen. [facility] 12-17-2022 Note Discharge Instructions Thank you for allowing [facility] to assist you with your healthcare needs. [...] or Motrin for pain as needed. Use [place] as prescribed for severe pain as needed. Return to the ED if symptoms worsen. Where: [address] [facility] [address] [place] [address] [phone] Business (1) Allergies Keflex Keppra (Rash) Tape, Paper (Rash) morphine (Rash) naproxen Medications Please ask your primary doctor or pharmacist before taking any other medication not listed, including over the counter drugs, herbal medications, vitamins and or supplements as they may interact withyour home medications. What How Much When Why Instructions Last Dose New acetaminophen-hydrocodone ([place] 325- 5 mg oral tablet) 1 tab(s) [...] or as directed by your healthcare provider 9087-2639 [employer]. [address] [place] [address]. All rights reserved. This information is not [...] blue color of the hand or foot 6377-6919 [employer]. [address] [place] [address]. All rights reserved. This information is not intended as a substitute for professional medical care. Always follow yourhealthcare professional's instructions. Additional Information VACCINATE! IT SAVES LIVES! Members of the community who have not yet received the COVID-19 vaccine and would like to receive it can visit one of [facility] vaccine clinics. There are many vaccine clinic locations within the [facility]. For locations and available times, please visit [email or web address]. It is important to note that some COVID mobile vaccine clinics are held outdoors and may be canceled in rainy orstormy conditions. To learn more about pediatric vaccinations (ages 5-11), we invite you to visit the [facility] webpage. https://www.[email or web address]/pages/8521-Onedk-Kzfagxzeamx-Uvmrrbcyfc-Ziawb-Wmo stions.htmlTo learn more about the COVID-19 vaccine, we invite you to visit the [employer] [facility] website for a list of frequently asked questions. [email or web address] _Asked-Questions.pdf [facility] Patient Portal Access Instructions: Stay connected with your healthcare team and access your personal medical information anytime with the [facility] Patient Portal. If you would like a full copy of your medical records please contact the [facility] Medical Records Department Friday through Friday between 8a.m. and 4:30p.m. Please follow the directions below to access the portal: 1.Access the email account you provided upon registration to the [facility].2.Look for an invitation email from [facility].3.Open the email and access the invitation link: Accept Invitation to [facility]4.Fill in the required vegas to create your account. Sign into [email or web address] with your username and password that you [...] you will allow to register on the [facility] Patient Portal for access to your information. You can also access the [facility] Patient Portal on the Piper. Simply click on Health Records under PlatformQ and then click on the W[facility] logo. [...] Call your local pharmacy or go to http://bit.Score The Board/7H9Gq1u to find one close to you.3.Make use of household items: Use cat litter or old coffee grounds to dispose medications if other options arenot available. Mix your drugs with these household products, seal them in an airtight container andthrow it into the garbage. Call [facility]: [phone] to be sure your drugs can be [...] aware that I should contact my doctor. Patient/Distribution Operations Supervisor Signature: Date/Time: Relationship to Patient: Witness Name/Signature: Date/Time: [facility]12-17-2022 Note ORIGINAL EXAMINATION: CT OF THE ABDOMEN [...] Sign Date: 06/01/2022 12:00:43 AM Ordering Provider: [facility]12-16-2022 Note ORIGINAL EXAMINATION: CT OF [...] humidified air to open blocked nasal passages. 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 Be [...] mouth Spotted, red, or very sore throat 6263-4185 [employer]. [address] [place] [address], [place] [address]. All rights reserved. This information is not intended as a substitute for professional medical care. Always follow yourhealthcare professional's instructions. Follow Up Care 05/27/2022 17:56:54 With:Go to emergency room if symptoms worsen Address:Unknown When:2-4 days With:Call Physician Referral Address:Unknown When:2-4 days [facility] 12-12-2022 Note ORIGINAL EXAMINATION: ONE XRAY VIEW [...] 05/27/2022 7:25:51 PM Ordering Provider: LEORA KHAN [facility]12-12-2022 Note Discharge Instructions Thank you for allowing [...] humidified air to open blocked nasal passages. 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 Be [...] mouth Spotted, red, or very sore throat 9621-7783 [employer]. [address] [place] [address], [place] [address]. All rights reserved. This information is not intended as a substitute for professional medical care. Always follow yourhealthcare professional's instructions. Additional Information VACCINATE! IT SAVES LIVES! Members of the community who have not yet received the COVID-19 vaccine and would like to receive it can visit one of [facility] vaccine clinics. There are many vaccine clinic locations within the [facility]. For locations and available times, please visit [email or web address]. It is important to note that some COVID mobile vaccine clinics are held outdoors and may be canceled in rainy orstormy conditions. To learn more about pediatric vaccinations (ages 5-11), we invite you to visit the [facility] webpage. https://www.[facility].org/pages/7006-Jcwwc-Zaoklawwoim-Sivmzxwszc-Hmlyw-Hqc stions.htmlTo learn more about the COVID-19 vaccine, we invite you to visit the [facility] website for a list of frequently asked questions. [email or web address]://[email or web address]/assets/Qxbrbroq-hxz-Nfzinqkt/milic-Xfszcvd-Evjuchfzql _Asked-Questions.pdf [facility] Patient Portal Access Instructions: Stay connected with your healthcare team and access your personal medical information anytime with the [facility] Patient Portal. If you would like a full copy of your medical records please contact the [facility] Medical Records Department Friday through Friday between 8a.m. and 4:30p.m. Please follow the directions below to access the portal: 1.Access the email account you provided upon registration to the hospital.2.Look for an invitation email from [facility].3.Open the email and access the invitation link: Accept Invitation to [facility]4.Fill in the required vegas to create your [...] you will allow to register on the [facility] Patient Portal for access to your information. You can also access the [facility] Patient Portal on the Piper. Simply click on Health Records under PlatformQ and then click on the Wandy logo. [...] Call your local pharmacy or go to http://[employer].Score The Board/7H7Fc0q to find one close to you.3.Make use of household items: Use cat litter or old coffee grounds to dispose medications if other options arenot available. Mix your drugs with these household products, seal them in an airtight container andthrow it into the garbage. Call [facility]: [phone] to be sure your drugs can be [...] aware that I should contact my doctor. Patient/Distribution Operations Supervisor Signature: Date/Time: Relationship to Patient: Witness Name/Signature: Date/Time: [facility]12-12-2022 Note ORIGINAL EXAMINATION: ONE XRAY VIEW OF [...] Sign Date: 05/27/2022 7:25:51 PM Ordering Provider: [facility]09-30-2022 Hospital Discharge instructions Patient Education 03/15/2022 [...] the ears or bruising around the eyes 2402-[address] [employer] [place] [address]. All rights reserved. This information is not intended as a substitute for professional medical care. Always follow yourhealthcare professional's instructions. Follow Up Care 03/14/2022 22:45:58 With:MICHAEL ERICKSON Address: [address] [place] [address] [phone] Business (1) When:2-4 days With:Call Physician Referral Address:Unknown When:2-4 days [facility] 09-30-2022 Note Discharge Instructions Thank you for allowing [facility] to assist you with your healthcare needs. The following is importantdischarge information regarding your hospital visit. Diagnosis from Today's Visit Headache What to Do Next Instructions from Your Care Team No qualifying data available. Post Acute Orders No qualifying data available. You Need to Schedule the Following Appointments Follow Up with MICHAEL ERICKSON When Within 2-4 days Where: [address] [place] [address]- [phone] Business (1) Follow Up with Call Physician [...] the ears or bruising around the eyes 8039-[address] [employer] [place] [address], [place] [address]. All rights reserved. This information is not intended as a substitute for professional medical care. Always follow yourhealthcare professional's instructions. Additional Information VACCINATE! IT SAVES LIVES! Members of the community who have not yet received the COVID-19 vaccine and would like to receive it can visit one of [facility] vaccine clinics. There are many vaccine clinic locations within the [facility]. For locations and available times, please visit [email or web address]. It is important to note that some COVID mobile vaccine clinics are held outdoors and may be canceled in rainy orstormy conditions. To learn more about pediatric vaccinations (ages 5-11), we invite you to visit the [facility] webpage. https://www.[facility].org/pages/4883-Leavv-Sgvdknglqfz-Fgewfcjvgl-Oawkd-Bou stions.htmlTo learn more about the COVID-19 vaccine, we invite you to visit the [facility] website for a list of frequently asked questions. https://[email or web address]/assets/Axqtssbt-rcj-Zbcdvvfa/ujvlq-Cknopxx-Mqtemaksdg _Asked-Questions.pdf [facility] Patient [facility] Access Instructions: Stay connected with your healthcare team and access your personal medical information anytime with the [facility] Patient [facility]. If you would like a full copy of your medical records please contact the [facility] Medical Records Department Friday through Friday between 8a.m. and 4:30p.m. Please follow the directions below to access the portal: 1.Access the email account you provided upon registration to the hospital.2.Look for an invitation email from [facility].3.Open the email and access the invitation link: Accept [facility]itation to [facility]4.Fill in the required vegas to create [...] you will allow to register on the [facility] Patient [facility] for access to your information. You can also access the [facility] Patient [facility] on the Piper. Simply click on Health Records under PlatformQ and then click on the Wandy logo. [...] Call your local pharmacy or go to http://[employer].Score The Board/5K2Vx4v to find one close to you.3.Make use of household items: Use cat litter or old coffee grounds to dispose medications if other options arenot available. Mix your drugs with these household products, seal them in an airtight container andthrow it into the garbage. Call [facility]: [phone] to be sure your drugs can be [...] aware that I should contact my doctor. Patient/Distribution Operations Supervisor Signature: Date/Time: Relationship to Patient: Witness Name/Signature: Date/Time: [facility]09-29-2022 Note ORIGINAL EXAMINATION: CT OF THE HEAD [...] Sign Date: 03/14/2022 11:55:41 PM Ordering Provider: [facility]09-29-2022 Note ORIGINAL EXAMINATION: CT OF THE HEAD [...] Sign Date: 03/14/2022 11:55:41 PM Ordering Provider: [facility]09-23-2022 Hospital Discharge instructions* Discharge Instructions* Giles Maier [...] Everywhere. * Head Injury: Closed: General Info (Cypriot) documented in this [facility] Work Phone: 1(633) 770-966107-21-2022 History of Present illness Narrative* Ibrahima Schaefer MD - 01/03/2022 12:16 PM EDT HISTORY AND PHYSICAL Patrick Cesar Koroma 1980 REFERRING PHYSICIAN: MD Saurabh CHIEF [...] repair of his recurrent ventral hernia at [facility] performed by Dr. Aaron Duque. The [...] any other maneuvers. The patient presented to [facility] emergency department on January 01 complaining of [...] applicable. Charlie Mera RN [facility]* Charlie Mera RN - [...] None Charlie Mera RN [facility] Instructions* Patient Instructions* Charlie Mera RN - 01/03/2022 10:45 AM EDT The following instructions are important for you related to your office visit today with the [facility] General Surgeons. Instructions After HEMATOMA/SEROMA ASPIRATION [...] you should contact our office immediately @ [phone] and ask to be transferred to the General Surgery department. [facility] Hospital Discharge instructions Patient Education 12/21/2021 [...] blue color of the hand or foot 3061-5609 Face to Face Live. [address] [place] [address]. All rights reserved. This information is not intended as a substitute for professional medical care. Always follow yourhealthcare professional's instructions. Follow Up Care 12/21/2021 20:37:47 With:AARON DUQUE MD, Surgery Address: [address] [address] [phone] When:2-4 days [facility] 07-08-2022 Emergency department Discharge summary Discharge Instructions Thank you for allowing [facility] to assist you with your healthcare needs. The following is importantdischarge information regarding your hospital visit. Diagnosis from Today's Visit Hematoma Abdominal pain What to Do Next Instructions from Your Care Team No qualifying data available. Post Acute Orders No qualifying data available. You Need to Schedule the Following Appointments Follow Up with AARON DUQUE MD, Surgery When Within 2-4 days Where: [address] [facility] [address] [place] [address]- [phone] Allergies Keflex Keppra (Rash) Tape, Paper (Rash) morphine (Rash) naproxen Medications Please ask your primary doctor or pharmacist before taking any other medication not listed, including over the counter drugs, herbal medications, vitamins and or supplements as they may interact withyour home medications. What How Much When Why Instructions Last Dose New acetaminophen-hydrocodone (Yorkville 325- 5 mg oral tablet) 1 tab(s) [...] blue color of the hand or foot 9503-8678 [employer] In[employer]. [address] [place] [address]. All rights reserved. This information is not intended as a substitute for professional medical care. Always follow yourhealthcare professional's instructions. Additional Information VACCINATE! IT SAVES LIVES! Members of the community who have not yet received the COVID-19 vaccine and would like to receive it can visit one of [facility] vaccine clinics. There are many vaccine clinic locations within the [facility]. For locations and available times, please visit www.[email or web address]. It is important to note that some COVID mobile vaccine clinics are held outdoors and may be canceled in rainy orstormy conditions. To learn more about pediatric vaccinations (ages 5-11), we invite you to visit the [facility] webpage. https://www.[facility].org/pages/9696-Jhzys-Ntqtzglhmdd-Qikmoigbgw-Cvmnn-Qcv stions.htmlTo learn more about the COVID-19 vaccine, we invite you to visit the [facility] website for a list of frequently asked questions. [email or web address]://[email or web address] Artisans/assets/Vydyhxbn-xmz-Hrdzzlzv/cabcm-Qvweswb-Pezmssmsyp _Asked-Questions.pdf [facility] Patient Portal Access Instructions: Stay connected with your healthcare team and access your personal medical information anytime with the [facility] Patient [facility]. If you would like a full copy of your medical records please contact the [facility] Medical Records Department Friday through Friday between 8a.m. and 4:30p.m. Please follow the directions below to access the portal: 1.Access the email account you provided upon registration to the [facility].2.Look for an invitation email from [facility].3.Open the email and access the invitation link: Accept Invitation to [facility]4.Fill in the required vegas to create your [...] you will allow to register on the [facility] Patient Portal for access to your information. You can also access the [facility] Patient Portal on the Piper. Simply click on Health Records under HealthData [...] Call your local pharmacy or go to http://bit.ly/7Z7Ip0g to find one close to you.3.Make use of household items: Use cat litter or old coffee grounds to dispose medications if other options arenot available. Mix your drugs with these household products, seal them in an airtight container andthrow it into the garbage. Call [facility]: [phone] to be sure your drugs can be [...] aware that I should contact my doctor. Patient/Distribution Operations Supervisor Signature: Date/Time: Relationship to Patient: Witness Name/Signature: Date/Time: [facility] Wandy [id number] Note ORIGINAL EXAMINATION: CT OF THE ABDOMEN [...] Date: 12/21/2021 9:56:22 PM [facility]ing [id number] Note ORIGINAL EXAMINATION: CT OF THE ABDOMEN [...] Date: 12/21/2021 9:56:22 PM Ordering Provider: ANJEL [facility] Wandy [id number] Hospital Discharge instructions Patient Education 11/30/2021 20:32:24 [...] blue color of the hand or foot 3590-0182 Face to Face Live. [address] [place] [address]. All rights reserved. This information is not intended as a substitute for professional medical care. Always follow yourhealthcare professional's instructions. Follow Up Care 11/30/2021 18:59:24 With:AARON DUQUE Address: [address] [place] [address] [phone] Business (1) When:2-4 days Comments:Schedule appointment for follow-up.Ice or cool compresses to the swollen, painful area.Use Tylenol,Advil or Aleve for pain as needed.Use Yorkville as prescribed for severe pain as needed.Return to the ED if symptoms worsen [facility] 06-10-2022 Evaluation + Plan note Future Scheduled Tests Laboratory* Basic Metabolic Panel 11/23/21 * Carbamazepine Level 11/23/21 * Complete Metabolic Panel 11/23/21 [facility] 06-10-2022 Evaluation + Plan note Future Appointments Future Scheduled Tests Laboratory* Basic Metabolic Panel 11/23/21 * Carbamazepine Level 11/23/21 * Complete Metabolic Panel 11/23/21 [facility] 06-10-2022 Evaluation + Plan note Future Scheduled Tests Laboratory* Basic Metabolic Panel 11/23/21 * Carbamazepine Level 11/23/21 * Complete Metabolic Panel 11/23/21 Radiology* IR Drainage Peritoneal Abscess Guide 08/20/22 [facility] 04-23-2022 Hospital Discharge instructions Patient Education 10/06/2021 [...] the waistline) or spreads to the back 8691-5528 The Invarium. [address] [place] [address]. All rights reserved. This information is not intended as a substitute for professional medical care. Always follow yourhealthcare professional's instructions. Follow Up Care 10/06/2021 14:45:39 With:AARON DUQUE MD, Surgery Address: [address] [facility] [place] [address] [phone] When:2-4 days [facility] Discharge summary Author Guevara Choi [facility] Note Date/Time December 07, 2024 12:1 3am [facility] Medical Records Department [address] [place] [address] Emergency Department Summary 12/07/24 MR#: [id number] Acct: [id number] Name: PATRICK KOROMA Rep #:[id number] : 1980 44 From: Guevara Choi MD PCP: ERIC Anaya Status:REG ER Location: ED HPI History of Present Illness Chief Complaint: Upper Extremity Injury Informant: patient Narrative Narrative: During tear down of a car level traction at the [facility], patient states he smashed his right thumb between 2 metal poles on accident. Tbvll-fygy-kpfwmabw. [facility] Medical History Seroma after procedure Influenza [...] right hand. Reading Location: [facility] Discharge Plan Triage Chief Complaint: Upper Extremity Injury ED Provider: Guevara Choi Dx/Rx/DC Orders Clinical Impression: Contusion of right thumb with damage to nail, initial encounter Instructions: ED Finger or Toe Contusion Prescriptions: No Action NK Primary Care Provider: Viola Starkey NP Referrals: Viola Starkey NP, OXYGEN THERAPY TEACHER-C [Primary Care Provider] - 10-14 Days if not better Print Language: Cypriot Disposition Disposition: Home, Self Care What to do if you have Problems For any increased pain, shortness of breath, bleeding, nausea or vomiting, chestpain, or any unexpected problems, contact your Primary Care Provider. Call [facility] ([phone]) or report to the closest Emergency Room. Call 911 if necessary. 12/07/24 0013 <Electronically signed by Guevara Choi MD> Duy Signature (if applicable): CC: ERIC Starkey ~ Signed [facility] Work Phone: Evaluation + Plan note No data available for this section [facility] Evaluation + Plan note Future Appointments Appointment Date:11/01/2021 02:10:00 PM Scheduled Provider:AARON DUQUE MD Location:Gen Surg [facility] Appointment Type:GS OV Check after Test [facility] Evaluation + Plan note Future Appointments [facility] Evaluation + Plan note Future Appointments Appointment Date:12/06/2021 01:40:00 PM Scheduled Provider:AARON DUQUE MD Location:Gen Surg [facility] Appointment Type:GS OV Post Op Appointment Date:02/22/2022 10:30:00 AM Scheduled Provider:APPLE CONNORS Location:[facility] Appointment Type:PC Wellness Annual Future Scheduled Tests Laboratory* Basic Metabolic Panel 11/23/21 * Carbamazepine Level 11/23/21 * Complete Metabolic Panel 11/23/21 [facility] Evaluation + Plan note Future Appointments Appointment Date:12/27/2021 01:20:00 PM Scheduled Provider:AARON DUQUE MD Location:Gen Surg [facility] Appointment Type:GS OV Follow Up Appointment Date:02/22/2022 10:30:00 AM Scheduled Provider:APPLE CONNORS APRN-BERT Location:[facility] Appointment Type:PC Wellness Annual Future Scheduled Tests Laboratory* Basic Metabolic Panel 11/23/21 * Carbamazepine Level 11/23/21 * Complete Metabolic Panel 11/23/21 [facility] Evaluation + Plan note Future Appointments Appointment Date:07/01/2022 03:20:00 PM Scheduled Provider:AARON DUQUE MD Location:Gen Surg [facility] Appointment Type:GS OV Future Scheduled Tests Laboratory* Basic Metabolic Panel 11/23/21 * Carbamazepine Level 11/23/21 * Complete Metabolic Panel 11/23/21 [facility] Evaluation + Plan note Future Appointments Appointment Date:07/25/2022 10:00:00 AM Scheduled Provider:AVANI CANTOR Location:Gen Surg [facility] Appointment Type:GS OV Post Op Future Scheduled Tests Laboratory* Basic Metabolic Panel 11/23/21 * Carbamazepine Level 11/23/21 * Complete Metabolic Panel 11/23/21 [facility] Evaluation noteNo assessment information available [facility] Work Phone: Evaluation note* Diagnosis Hematoma- Primary Contusion of unspecified site Incisional hernia, without obstruction or gangrene Incisional hernia without mention of obstruction or gangrene [facility] Diagnosis Closed head injury, initial encounter- Primary documented in this encounter [facility] Work Phone: Evaluation note* Diagnosis Injury of right wrist, initial encounter- Primary documented in this encounter [facility] [employer] Work Phone: evalxzaphz note* Diagnosis Acute pain of right shoulder- Primary Strain of right shoulder, initial encounter [facility] evaledbgns [facility]* Diagnosis Onset Date Resolution Status Infected hernioplasty mesh a cute [facility] Work Phone: Evaluation note* Diagnosis Left lower quadrant abdominal pain- Primary [facility]* Diagnosis Preoperative examination- Primary Preoperative examination, unspecified Infected hernioplasty mesh, sequela [facility]* Diagnosis Abdominal pain, unspecified abdominal location- Primary Preoperative examination Preoperative examination, unspecified Infected hernioplasty mesh, sequela documented [facility] this [facility]* Diagnosis Pre-op evaluation- Primary Preoperative examination, unspecified Post traumatic seizure disorder (HCC) Post traumatic seizures Morbid obesity (HCC) Morbid obesity Tobacco use Tobacco use disorder Preoperative examination Preoperative examination, unspecified Infected hernioplasty mesh, sequela documented [facility] this [facility]* Diagnosis Left lower quadrant abdominal pain- Primary [facility]* Diagnosis Left lateral abdominal pain- Primary Abdominal pain, unspecified site documented in this encounter [facility] note* Diagnosis Seizure (CMS/HCC) (HCC)- Primary Other convulsions documented in this encounter [facility] note* Diagnosis Periumbilical abdominal pain- Primary Abdominal pain, periumbilic History of abdominal hernia documented in this encounter [facility] Work Phone: Evaluation note* Diagnosis History of abdominal hernia documented in this encounter [facility] Work Phone: Hospital Discharge instructions No data available for this section [facility] Hospital Discharge instructions* Attachments The following attachments cannot be sent through Care Everywhere. * RICE: General Info (Cypriot) [facility] Work Phone: Hospital Discharge instructions* Attachments The following attachments cannot be sent through Care Everywhere. * Shoulder Sprain (Cypriot) [facility] Work Phone: Hospital Discharge instructions Additional Instructions Please [facility] Work Phone: Hospital Discharge instructions Additional Instructions Your x-ray right shoulder negative. Your clinical exam concerns for biceps tendinitis of the shoulder region. Continue ibuprofen. Finish prednisone as prescribed.[facility] Work Phone: Hospital Discharge instructions Additional Instructions You may wear the sling for comfort but exercise your right shoulder at least 3 times a day to prevent frozen shoulder. Vdla-fwb-nybjwss medications as needed for pain. Follow-up with orthopedics if not improving.[facility] Work Phone: Hospital Discharge instructionsAdditional Instructions Call [facility]. Get the name and office number of the general surgeons there that are hernia installation and repair technician. Call their office to get an appointment. Motrin and Tylenol for pain.[facility] Work Phone: Hospital Discharge instructionsAdditional Instructions Please follow-up with your family doctor and/or surgeon for repeat evaluation and return to the ER should you have any further concernsWUniversity [facility] Work Phone: Progress note No data available for this section [facility] Reason for referral (narrative)No reason for referral information availableWUniversity Hospitals [facility] Work Phone: Reason for visit Narrative* Consultation (Routine) - Authorized Specialty Diagnoses / Procedures Referred By Lilli mcgregor Referred To Contact General Surgery Diagnoses History of abdominal hernia Jonathan Gonzalez MD [address] [facility] [address] [place] [address] Phone: tel: fax: Stephon Benavides MD [address] [facility] [address] [place] [address] Phone: tel: fax: Referral ID Status Reason Start Date Expiration Date Visits Requested Visits Authorized [id number] Authorized Specialty Services Required 07/29/2024 07/29/2025 1 1 [facility] Work Phone: Sukejbl note* Daksha Love: PERFORM Event Display: Patient Summary Documents Authored Date: [facility] Sufnjle note* VERONIKA Connors: PERFORM Event Display: Patient Summary Documents Authored Date: [id number] [facility] Sujnpnl note* VERONIKA Cnonors: PERFORM Event Display: Patient Summary Documents Authored Date: [id number] [facility] Suuykfe of episode note* Barbara Michele RN: PERFORM Event Display: Outpatient Patient Summary Authored Date: [id number] Discharge Instructions Thank you for allowing [facility] to assist you with your healthcare needs. The following is importantdischarge information regarding your hospital visit. Your Care Team AARON DUQUE MD Your Diagnosis Acute post-operative pain What to do next Follow Up Appointments Follow Up with AARON DUQUE MD, Surgery When In 2 weeks Why: Call office to schedule follow up appointment. Where: [address] [place] [address] [phone] The Following Activity and Diet Have Been Ordered for You Discharge Activity - Ordered -- Sexual [place] Restricted No bending, twisting, crawling or squatt, [...] When Why Instructions Last Dose New acetaminophen-hydrocodone ([place] 325- 5 mg oral tablet) 1 tab(s) by mouth Every 4 hours as needed for Pain, scale 4-6 Acute post-operative pain Duration: 7 Days Pickup at [facility]/pharmacy #[id number] Unchanged carBAMazepine (TEGretol 200 mg oral tablet) 3 tab(s) by mouth Two (2) times a day Seizure Post-operative state s/p umbilical hernia repair, possible seizure following surgery Pharmacy Information [facility]/pharmacy #[id number]: [address], [place] [id number] [phone] Please take this list to your next [...] Document Reviewed: 06/21/2019 Elsevier Patient Education 2019 Elsevier Inc. How To Use an Incentive [...] as possible. If the spirometer includes a middle school sports coach indicator, use this to guide you [...] 10/13/2007 Document Revised: 06/25/2018 Document Reviewed: 04/15/2018 Energate Patient Education 2020 Narr8. Surgical Drain Home Care Surgical drains are [...] placed at your back, or any other bqvq-wn-jaeov area, ask another person to assist you [...] and water are not available, use hand park guard. 3. Remove the old dressing. Avoid using [...] and water are not available, use hand park guard. 3. Loosen any pins or clips that [...] placed at your back, or any other vlwc-ws-mgpds area, ask another person to assist you. [...] Document Reviewed: 07/07/2019 Elsevier Patient Education 2019 Narr8. Ryan Pantoja Drain Patient Education After surgery, [...] Document Reviewed: 06/03/2014 ExitCare Patient Information 2015 [place]. This information is not intended to replace [...] garbage bag. Soap and water, or hand park guard. Wound cleanser or salt-water solution (saline). New [...] and water are not available, use hand park guard. 3. Set up a clean station for [...] and water are not available, use hand park guard. Clean your wound Wear gloves, protective clothing, [...] and water are not available, use hand park guard. Apply new dressing Wear gloves, protective clothing, [...] and water are not available, use hand park guard. 8. Turn the pump back on. The sponge dressing should collapse. Do not change the settings on the machine without talking to a health care provider. 9. Replace the container in the pump that collects fluid if it is full. Replace the container per the security operations manager's instructions or at least once a week, [...] all clamps are open. Do not use enqa-woj-bqscror medicated or antiseptic creams, sprays, liquids, or [...] 08/24/2012 Document Revised: 09/24/2019 Document Reviewed: 08/20/2019 Energate Patient Education 2020 Narr8. Nausea and Vomiting, Adult Nausea is the [...] water added (diluted fruit juice). Eat bland, bzry-pd-mxetsu foods in small amounts as you are able. These foods include bananas, applesauce, rice, lean meats, toast, and crackers. Avoid fluids that contain a lot of sugar or caffeine, such as energy drinks, sports drinks, and soda. Avoid alcohol. Avoid spicy or fatty foods. General instructions Take gjjg-nyj-dubmqyo and prescription medicines only as told by your health care provider. Drink enough fluid to keep your urine pale yellow. Wash your hands often using soap and water. If soap and water are not available, use hand park guard. Make sure that all people in your [...] eating and drinking to prevent dehydration. Take gndm-hjn-ownruec and prescription medicines only as told by [...] 06/02/2006 Document Revised: 09/24/2019 Document Reviewed: 11/10/2018 [employer]nergate Patient Education 2020 Narr8. Monitored Anesthesia Care, Care After These instructions [...] before eating solid foods. General instructions Take mrnw-etq-gokluvn and prescription medicines only as told by [...] 09/22/2016 Document Revised: 08/31/2018 Document Reviewed: 09/22/2016 Energate Patient Education 2020 Narr8. Open Hernia Repair, Adult, Care After This [...] and water are not available, use hand park guard. ? Change your dressing as told by [...] urine clear or pale yellow. ? Take pffk-xqz-rfypzze or prescription medicines. ? Eat foods that are high in fiber, such as fresh fruits and vegetables, whole grains, and beans. ? Limit foods that are high in fat and processed sugars, such as fried and sweet foods. Take fjcw-mjo-xvhzblf and prescription medicines only as told by [...] 12/20/2005 Document Revised: 05/15/2018 Document Reviewed: 11/13/2016 Elsevier Patient Education 2020 Energate Inc. Additional Information VACCINATE! IT SAVES LIVES! Members of the community who have not yet received the COVID-19 vaccine and would like to receive it can visit one of [facility] vaccine clinics. There are many vaccine clinic locations within the [facility]. For locations and available times, please visit [email or web address] It is important to note that some COVID mobile vaccine clinics are held outdoors and may be canceled in rainy or stormy conditions. To learn more about pediatric vaccinations (ages 5-11), we invite you to visit the [facility] webpage. [email or web address]-Yisofdvxaik-Brpqevxdkr-Stoty-Gtj stions.htmlTo learn more about the COVID-19 vaccine, we invite you to visit the [facility] website for a list of frequently asked questions. [email or web address]-[email or web address] _[email or web address]-Questions.pdf [facility] Patient Portal Access Instructions: Stay connected with your healthcare team and access your personal medical information anytime with the [facility] Patient Portal.If you would like a full copy of your medical records, please contact the [facility] Medical Records Department, Friday through Friday between 8a.m. and 4:30p.m. Please follow the directions below to access the portal: 1.Access the email account you provided upon registration to the [facility].2.Look for an invitation email from [facility].3.Open the email and access the invitation link: Accept Invitation to [facility]4.Fill in the required [place] to create your account. Sign into [email or web address] with your username and password that you [...] you will allow to register on the [facility] Patient Portal for access to your information. You can also access the [facility] Patient Portal on the [employer]. Simply click on Health Records under PlatformQ and then click on the Sense Platform logo. HOW TO SAFELY DISPOSE OF PRESCRIPTION [...] Call your local pharmacy or go to http://bit.Score [email or web address] [email or web address] to find one close to you.3.Make use of household items: Use cat litter or old coffee grounds to dispose medications if other options arenot available. Mix your drugs with these household products, seal them in an airtight container andthrow it into the garbage. Call [facility]: [phone] to be sure your drugs can be [...] aware that I should contact my doctor. Patient/Distribution Operations Supervisor Signature: Date/Time: Relationship to Patient: Witness Name/Signature: Date/Time: [facility] Summary Purpose Family History No Family History [...] No January 01, 2022 6:14pm Power of Commercial Real Estate Broker No January 01 6:14pm Advance Directive Response Recorded Date/ Time Advance Directives No July 05, 2017 11:20pm Living Will No July 04 24 12:18am Power of Commercial Real Estate Broker No July 04, 2023 12:18am Advance Directive Response Recorded Date/ Time Advance Directives No July 05, 2017 11:20pm Living Will No June 01, 023 1:14am Power of Commercial Real Estate Broker No June 01, 2023 1:14am Advance Directive Response Recorded Date/ Time Living Will No August 24, 2024 10:40pm Power of Commercial Real Estate Broker No August 24 10:40pm Advance Directives No July 06, 2017 12:20am Advance Directive Response Recorded Date/ Time Living Will No August 24, 2024 10:40pm Do you have a Healthcare Power of Commercial Real Estate Broker? No August 24, 2024 10:40pm Living Will No September 19, 2024 9:34pm Do you have a Healthcare Power of Commercial Real Estate Broker? No September 19, 2024 9:34pm Advance Directives No July 06, 2017 12:20am Advance Directive Response Recorded Date/ Time Living Will No August 24, 2024 10:40pm Do you have a Healthcare Power of Commercial Real Estate Broker? No August 24, 2024 10:40pm Living Will No September 19, 2024 9:34pm Do you have a Healthcare Power of Commercial Real Estate Broker? No September 19, 2024 9:34pm Do you have a Healthcare Power of Commercial Real Estate Broker? No December 06, 2024 11:19pm Advance Directives No July 06, 2017 12:20am Advance Directive Response Recorded Date/ Time Living Will No August 24, 2024 10:40pm Do you have a Healthcare Power of Commercial Real Estate Broker? No August 24, 2024 10:40pm Living Will No September 19, 2024 9:34pm Do you have a Healthcare Power of Commercial Real Estate Broker? No September 19, 2024 9:34pm Do you have a Healthcare Power of Commercial Real Estate Broker? No December 06, 2024 11:19pm Do you have a Healthcare Power of Commercial Real Estate Broker? No December 08, 2024 11:45pm Advance Directives No July 06, 2017 12:20am Advance Directive Response Recorded Date/ Time Living Will No September 19, 2024 9:34pm Do you have a Healthcare Power of Commercial Real Estate Broker? No September 19, 2024 9:34pm Do you have a Healthcare Power of Commercial Real Estate Broker? No December 06, 2024 11:19pm Do you have a Healthcare Power of Commercial Real Estate Broker? No December 08, 2024 11:45pm Do you have a Healthcare Power of Commercial Real Estate Broker? No December 29, 2024 9:30pm Advance Directives No July 06, 2017 12:20am Advance Directive Response Recorded Date/ Time Do you have a Healthcare Power of Commercial Real Estate Broker? No December 06, 2024 11:19pm Do you have a Healthcare Power of Commercial Real Estate Broker? No December 08, 2024 11:45pm Do you have a Healthcare Power of Commercial Real Estate Broker? No December 29, 2024 9:30pm Do you have a Healthcare Power of Commercial Real Estate Broker? No January 25, 2025 10:34pm Advance Directives No July 06, 2017 12:20am Advance Directive Response Recorded Date/ Time Do you have a Healthcare Power of Commercial Real Estate Broker? No December 06, 2024 11:19pm Do you have a Healthcare Power of Commercial Real Estate Broker? No December 08, 2024 11:45pm Do you have a Healthcare Power of Commercial Real Estate Broker? No December 29, 2024 9:30pm Do you have a Healthcare Power of Commercial Real Estate Broker? No January 25, 2025 10:34pm Do you have a Healthcare Power of Commercial Real Estate Broker? No February 17, 2025 10:06pm Advance Directives No July 06, 2017 12:20am [...] ABD PAIN January 25, 2025 10 :22pm Chief Complaint Admit Date hand injury December 06, 2024 11:1 9pm HERNIA December 08, 2024 11:3 3pm ABD PAIN December 29, 2024 9:21 pm ABD PAIN January 25, 2025 10 :22pm Abd pain February 17, 2025 9:20pm Reason for Referral Specialty Diagnoses / Procedures Referred By Lilli t Referred To Contact Neurosurgery Diagnoses Left lower quadrant abdominal pain Procedures CONSULT TO NEUROSURGERY Jese Richardson MD [address] [place] [address] Juliocesar Borrero MD, PhD [address] [place] [address] Referral ID Status Reason Start Date Expiration Date Visits Requested Visits Authorized [id number] Ref Not Required PCP Requested Referral 10/07/2023 10/06/2024 1 1 Specialty Diagnoses / Procedures Referred By Contac t Referred To Contact Diagnoses Preoperative examination Infected hernioplasty mesh, sequela Procedures REFER TO PACC - PRE ANESTHESIA CONSULTATION CLINIC OFFICE/OUTPATIENT [facility] 60 MINUTES Linda Griffiths, DIRECTOR VALIDATION.REVIEW SPECIALIST [address] [id number] Referral ID Status Reason Start Date Expiration Date Visits Requested Visits Authorized [id number] Authorized PCP Requested Referral 07/21/2023 07/20/2024 1 1 Specialty Diagnoses / Procedures Referred By Contac t [facility]erred [facility] Diagnoses Preoperative examination Infected hernioplasty mesh, sequela Procedures ECG COMPLETE ECG ROUTINE ECG W/LEAST 12 LDS W/I&R Linda Griffiths, DIRECTOR VALIDATION.REVIEW SPECIALIST [address] [place], [place] [address] [facility] [address] [place] [address] Referral ID Status Reason Start Date Expiration Date Visits Requested Visits Authorized [id number] Pending Review Auto-Generat ed Referral 07/21/2023 07/20/2024 1 1 Specialty Diagnoses / Procedures Referred By Contac t Referred To Contact Diagnoses Preoperative examination Infected hernioplasty mesh, sequela Procedures CONSULT TO [facility]/OUTPATIENT [facility] 60 MINUTES Linda Griffiths, DIRECTOR VALIDATION.REVIEW SPECIALIST [address] [id number] Referral ID Status Reason Start Date Expiration Date Visits Requested Visits Authorized [id number] Authorized PCP Requested Referral 07/21/2023 07/20/2024 1 1 Specialty Diagnoses / Procedures Referred By Contac t Referred To Contact [facility] Diagnoses Left lower quadrant abdominal pain Procedures [facility]SULT TO [facility] OFFICE/OUTPATIENT [facility] MDM 60 MINUTES Linda Griffiths, DIRECTOR VALIDATION.REVIEW SPECIALIST [address] [place], [place] [address] Referral ID Status Reason Start Date Expiration Date Visits Requested Visits Authorized [id number] Pending Review PCP Requested Referral 07/18/2023 07/17/2024 1 1 Additional Source Comments (unrecognized sect ion and content) No Status Records FoundNo Status Records FoundNo Status Records FoundNo Status Records FoundNo Status Records FoundNo Status Records FoundNo Status Records FoundNo Status Records FoundNo Status Records FoundNo Status Records FoundNo Status Records Found INFORMATION SOURCE (unrecogn ized section and content) DATE CREATED AUTHOR 12/10/2017 [facility] DATE CREATED AUTHOR AUTHOR'S ORGANIZ ATION 12/10/2021 [facility] DATE CREATED AUTHOR AUTHOR'S ORGANIZ ATION 03/18/2022 [facility] DATE CREATED AUTHOR AUTHOR'S ORGANIZ ATION 04/30/2022 [facility] DATE CREATED AUTHOR AUTHOR'S ORGANIZ ATION 06/12/2022 [facility] DATE CREATED AUTHOR AUTHOR'S ORGANIZ ATION 06/15/2022 [facility] DATE CREATED AUTHOR AUTHOR'S ORGANIZ ATION 02/23/2023 [facility] DATE CREATED AUTHOR AUTHOR'S ORGANIZ ATION 10/16/2023 [facility] ([place]) DATE CREATED AUTHOR AUTHOR'S ORGANIZ ATION 11/07/2023 [facility] DATE CREATED AUTHOR AUTHOR'S ORGANIZ ATION 09/12/2024 [facility] DATE CREATED AUTHOR AUTHOR'S ORGANIZ ATION 02/24/2025 [facility] Care Team (unrecognized sect ion and content) Digital Experience Manager Relationship Specialty Start Date End Date Maddison Martin MD [address] [place], [place] [id number] PCP - General Internal Medicine 07/08/17 Digital Experience Manager Relationship Specialty Start Date End Date No, [...] Dr. Carlo Shea DO Emergency Provider Active Digital Experience Manager Relationship Specialty Start Date End Date Maddison Martin MD [address] [place] [address] PCP - General Internal Medicine 07/08/17 Jeffery Weber MD [address] [place] [address] General Surgery 06/13/23 Digital Experience Manager Relationship Specialty Start Date End Date Maddison Martin MD [address] [place] [address] PCP - General Internal Medicine 07/08/17 Jeffery Weber MD [address] [place] [address] General Surgery 06/13/23 Digital Experience Manager Relationship Specialty Start Date End Date Maddison Martin MD [address] [place] [address] PCP - General Internal Medicine 07/08/17 Jeffery Weber MD [address] [facility] [address] [place] [address] General Surgery 06/13/23 Digital Experience Manager Relationship Specialty Start Date End Date Maddison Martin MD [address] [place] [address] PCP - General Internal Medicine 07/08/17 Jeffery Weber MD [address] [place] [address] General Surgery 06/13/23 Digital Experience Manager Relationship Specialty Start Date End Date Maddison Martin MD [address] [place] [address] PCP - General Internal Medicine 07/08/17 Jeffery Weber MD [address] [place] [address] General Surgery 06/13/23 Digital Experience Manager Relationship Specialty Start Date End Date Maddison Martin MD [address] [place] [address] PCP - General Internal Medicine 07/08/17 Jeffery Weber MD [address] [place] [address] General Surgery 06/13/23 Digital Experience Manager Relationship Specialty Start Date End Date Maddison Martin MD [address] [place] [address] PCP - General Internal Medicine 07/08/17 Jeffery Weber MD [address] [place] [address] General Surgery 06/13/23 Digital Experience Manager Relationship Specialty Start Date End Date Jonathan Gonzalez MD [address] [facility] [address] [place] [address] Surgeon General Surgery 06/21/24 Digital Experience Manager Relationship Specialty Start Date End Date Jonathan Gonzalez MD [address] [place] [address] Surgeon General Surgery 06/21/24 Digital Experience Manager Relationship Specialty Start Date End Date Jonathan Gonzalez MD [address] [place] [address] Surgeon General Surgery 06/21/24 Team Status: Active [...] Member Role Status Dates Viola Starkey NP, OXYGEN THERAPY TEACHER-C Primary Care Provider Active Team Status: Inactive Member Role Status Dates Dr. Cristian Barrera DO Attending Provider Active Start : August 24, 2024 End: August 24, 2024 Dr. Cristian Barrera DO Emergency Provider Active Start : August 24, 2024 End: August 24, 2024 Viola Starkey NP, OXYGEN THERAPY TEACHER-C Primary Care Provider Active Start: August 24, 2024 End: August 24, 2024 Team Status: Inactive Member Role Status Dates Viola Starkey NP, OXYGEN THERAPY TEACHER-C Primary Care Provider Active Start: September 19, 2024 End: September 19, 2024 Brian Maldonado MD Referring Provider Active Star t: September 19, 2024 End: September 19, 2024 Brian Maldonado MD Emergency Provider Active Star t: September 19, 2024 End: September 19, 2024 Team Status: Inactive Member Role Status Dates Viola Starkey NP, OXYGEN THERAPY TEACHER-C Primary Care Provider Active Start: September 19, [...] Inactive Member Role Status Dates Viola Starkey OXYGEN THERAPY TEACHER, OXYGEN THERAPY TEACHER-C Primary Care Provider Active Start: December 06, 2024 End: December 07, 2024 Dr. Guevara Choi MD Emergency Provider Active Start: December 06, 2024 End: December 07, 2024 Team Status: Inactive Member Role Status Dates Viola Starkey OXYGEN THERAPY TEACHER, OXYGEN THERAPY TEACHER-C Primary Care Provider Active Start: December 08, 2024 End: December 09, 2024 Dr. Guero Baker DO Emergency Provider Active Start: December 08, 2024 End: December 09, 2024 Team Status: Active Member Role/Relationship Status Dates Viola Starkey OXYGEN THERAPY TEACHER, OXYGEN THERAPY TEACHER-C Primary Care Provider Active Team Status: Inactive Member Role/Relationship Status Dates Viola Starkey OXYGEN THERAPY TEACHER, OXYGEN THERAPY TEACHER-C Primary Care Provider Active Start: September 19, [...] Inactive Member Role/Relationship Status Dates Viola Starkey OXYGEN THERAPY TEACHER, OXYGEN THERAPY TEACHER-C Primary Care Provider Active Start: December 06, 2024 End: December 07, 2024 Dr. Guevara Choi MD Attending Provider Active Start: December 06, 2024 End: December 07, 2024 Dr. Guevara Choi MD Emergency Provider Active Start: December 06, 2024 End: December 07, 2024 Team Status: Inactive Member Role/Relationship Status Dates Viola Starkey OXYGEN THERAPY TEACHER, OXYGEN THERAPY TEACHER-C Primary Care Provider Active Start: December 08, 2024 End: December 09, 2024 Dr. Guero Baker DO Attending Provider Active Start: December 08, 2024 End: December 09, 2024 Dr. Guero Baker DO Emergency Provider Active Start: December 08, 2024 End: December 09, 2024 Team Status: Inactive Member Role/Relationship Status Dates Viola Starkey OXYGEN THERAPY TEACHER, OXYGEN THERAPY TEACHER-C Primary Care Provider Active Start: December 29, 2024 End: December 29, 2024 Dr. Justin Cordero MD Emergency Provider Active S tart: December 29, 2024 End: December 29, 2024 Team Status: Inactive Member Role/Relationship Status Dates Viola Starkey OXYGEN THERAPY TEACHER, OXYGEN THERAPY TEACHER-C Primary Care Provider Active Start: December 06, 2024 End: December 07, 2024 Dr. Guevara Choi MD Attending Provider Active Start: December 06, 2024 End: December 07, 2024 Dr. Guevara Choi MD Emergency Provider Active Start: December 06, 2024 End: December 07, 2024 Team Status: Inactive Member Role/Relationship Status Dates Viola Starkey OXYGEN THERAPY TEACHER, OXYGEN THERAPY TEACHER-C Primary Care Provider Active Start: December 08, 2024 End: December 09, 2024 Dr. Guero Baker DO Attending Provider Active Start: December 08, 2024 End: December 09, 2024 Dr. Guero Baker DO Emergency Provider Active Start: December 08, 2024 End: December 09, 2024 Team Status: Inactive Member Role/Relationship Status Dates Viola Starkey OXYGEN THERAPY TEACHER, OXYGEN THERAPY TEACHER-C Primary Care Provider Active Start: December 29, 2024 End: December 29, 2024 Dr. Justin Cordero MD Attending Provider Active S tart: December 29, 2024 End: December 29, 2024 Dr. Justin Cordero MD Emergency Provider Active S tart: December 29, 2024 End: December 29, 2024 Team Status: Inactive Member Role/Relationship Status Dates Viola Starkey OXYGEN THERAPY TEACHER, OXYGEN THERAPY TEACHER-C Primary Care Provider Active Start: January 25, 2025 End: January 26, 2025 Dr. Guero Baker DO Emergency Provider Active Start: January 25, 2025 End: January 26, 2025 Team Status: Inactive Member Role/Relationship Status Dates Viola Starkey OXYGEN THERAPY TEACHER, OXYGEN THERAPY TEACHER-C Primary Care Provider Active Start: January 25, 2025 End: January 26, 2025 Dr. Guero Baker DO Attending Provider Active Start: January 25, 2025 End: January 26, 2025 Dr. Guero Baker DO Emergency Provider Active Start: January 25, 2025 End: January 26, 2025 Team Status: Inactive Member Role/Relationship Status Dates Viola Starkey OXYGEN THERAPY TEACHER, OXYGEN THERAPY TEACHER-C Primary Care Provider Active Start: February 17, 2025 End: February 18, 2025 Dr. Guero Baker DO Emergency Provider Active Start: February 17, 2025 End: February 18, 2025 Care Team (unrecognized sect ion and [...] Team Related Persons Name: AMANDA WELSH Name: OLLIS ALMEIDA Care Team Personnel Name: PHYSICIAN, NONE [...] or prosecute any alcohol or drug abuse patient.[facility] HospitalIn the event this information is protected by the Federal Confidentiality of Alcohol and Drug Abuse Patient Records regulations: The Federal rules restrict any use of the information to criminally investigate or prosecute any alcohol or drug abuse patient.[facility] HospitalIn the event this information is protected by the Federal Confidentiality of Alcohol and Drug Abuse Patient Records regulations: The Federal rules restrict any use of the information to criminally investigate or prosecute any alcohol or drug abuse patient.[facility] HospitalIn the event this information is protected by the Federal Confidentiality of Alcohol and Drug Abuse Patient Records regulations: The Federal rules restrict any use of the information to criminally investigate or prosecute any alcohol or drug abuse patient.[facility] HospitalIn the event this information is protected by the Federal Confidentiality of Alcohol and Drug Abuse Patient Records regulations: The Federal rules restrict any use of the information to criminally investigate or prosecute any alcohol or drug abuse patient.[facility] HospitalIn the event this information is protected by the Federal Confidentiality of Alcohol and Drug Abuse Patient Records regulations: The Federal rules restrict any use of the information to criminally investigate or prosecute any alcohol or drug abuse patient.[facility] HospitalIn the event this information is protected by the Federal Confidentiality of Alcohol and Drug Abuse Patient Records regulations: The Federal rules restrict any use of the information to criminally investigate or prosecute any alcohol or drug abuse patient.[facility] HospitalIn the event this information is protected by the Federal Confidentiality of Alcohol and Drug Abuse Patient Records regulations: The Federal rules restrict any use of the information to criminally investigate or prosecute any alcohol or drug abuse patient.[facility] Reason for Visit (unrecogniz ed section [...] Patient Specialty Diagnoses / Procedures Referred By Lilli t Referred To Contact [facility] / NEUROLOGY PAIN Diagnoses Left lower quadrant abdominal pain Procedures CONSULT TO [facility] (CHRONIC PAIN) OFFICE/OUTPATIENT NEW HIGH MDM 60 MINUTES Linda Griffiths APRN.[facility] [address] [place] [address] [facility] [id number] [address] [place] [id number] Referral ID Status Reason Start Date Expiration Date V isits Requested Visits Authorized [id number] Closed PCP Requested Referral 07/21/2023 06/15/2024 1 [...] BE BASED ON THE PRIMARY CLINICAL RECORDS. [facility] [employer] [facility]. provides no warranty or guarantee of the accuracy or completeness of information in this document.
[2025-02-27] MEDS: 0.9% Normal Saline (1000mL) 1,000 ML 999 ML IV (21:33)
[2025-02-27] MEDS: HYDROmorphone 0.5 MG/0.5 ML SYRINGE IV (21:34)
[2025-02-27 21:43] LABS: Hematocrit 39.4 % (40-54); Hemoglobin 13.4 g/dL (13.0-16.5); Immature Granulocytes Count 0.030 X10^3/uL (0.0-0.0); Mean Corp Hgb Conc 34.0 g/dL (32-36); Mean Corpuscular Volume 91.8 fL (80-94); Mean Platelet Vol. 9.5 fl (6.2-12.0); NRBC Flagged by Analyzer 0 % (0-5); Platelet Count 280 K/mm3 (150-450); RBC Distribution Width CV 13.1 % (11.6-14.6); RBC Distribution Width SD 43.8 fl (35.1-43.9); Red Blood Count 4.29 M/mm3 (4.6-6.2); White Blood Count 9.9 K/mm3 (4.4-11.0)
[2025-02-27 22:18] LABS: Lipase 37 U/L (13-75)
[2025-02-27 22:20] LABS: AST(SGOT) 21 U/L (<=37); Alanine Aminotransfer ALT/SGPT 18 U/L (<=46); Albumin, Serum 3.8 g/dL (3.5-5.0); Alkaline Phosphatase 34 U/L (40-129); Anion Gap 11 (5-15); BUN 12 mg/dL (4-19); BUN/Creat Ratio 14.1 RATIO (10-20); Calcium,Total 9.3 mg/dL (7.6-11.0); Carbon Dioxide 22.6 mmol/L (21.0-32.0); Chloride 107 mmol/L (98-108); Estimated Creatinine Clearance 178.28 ml/min (50-250); Globulin 2.6 g/dL (2.2-4.2); Glucose 108 mg/dL (70-99); Potassium 3.8 mmol/L (3.3-5.1)
[2025-02-27 23:00] VITALS: BP 133/80; PULSE 73; RESP 16; TEMP 36.6; O2SAT 98
== END 2025-02-27 23:01 | disposition home or self-care (01) ==
PROVIDERS: Emergency Provider Emergency Medicine; PCP Nurse Practitioner Family; Visit Provider Emergency Medicine
DX: R10.9 Unspecified abdominal pain (principal); F17.210 Nicotine dependence, cigarettes, uncomplicated; Z90.49 Acquired absence of other specified parts of digestive tract; G89.29 Other chronic pain; K43.9 Ventral hernia without obstruction or gangrene
CPT/HCPCS: 74177; 80053; 83605; 83690; 85025; 96361; 96374; 96375; 99283; Q9967; A4216; J2405

== ENCOUNTER 2025-03-07 22:38 | Emergency (ER) | payer MEDICAID, SELFPAY ==
[2025-03-07 22:38] VITALS: BP 159/87; PULSE 90; RESP 14; TEMP 36.9; O2SAT 98; BMI 44.1
--- NOTE | 2025-03-07 23:13 | CT_ITS ---
PROCEDURE: CT BRAIN/HEAD WITHOUT CONTRAST 03/07/2025 REASON FOR EXAM: SEIZURE TECHNIQUE: Procedure Code: CTBR Modality: CT Procedure: BRAIN/HEAD WITHOUT CONTRAST Coronal and Sagittal reconstruction series were provided. One or more dose reduction techniques were used (e.g., Automated exposure control, adjustment of the mA and/or kV according to patient size, use of iterative reconstruction technique. RADIATION DOSE SUMMARY: CTDlvol: 44.99 mGy DLP: 796.11 mGycm COMPARISON: None. FINDINGS: No acute intracranial hemorrhage, extra-axial collection, mass effect or evidence of acute infarct. Ventricles and subarachnoid spaces are normal in size. Orbital contents are unremarkable. Intact skull base and calvarium. Clear paranasal sinuses and mastoid air cells. CT/Brain/Head without Contrast IMPRESSION: Unremarkable head CT. Reading Location: [facility]
--- OUTSIDE RECORDS SUMMARY | 2025-03-07 23:14 | XMS RPT_ITS | CCD ---
Author Organization [facility] Care Team Providers Care Cut Off Machine Operator Name Role Phone JOSH HELTON Unavailable Unavailable LEYDI MARTIN Unavailable Unavailable CIELO ALANIZ Unavailable Unavailable MILDRED GALLARDO Unavailable Unavailable LEYDI MARTIN Unavailable Unavailable LEYDI MARTIN Unavailable Unavailable DR LEYDI MARTIN MD Primary Care Physician PHYSICIAN, NONE Primary Care Physician UnavailLeydi Delgado MD Primary Care Provider Unavailable Primary Care Provider Unavailabl e PROVIDER, UNKNOWN Referring Unavailable No, PCP Primary Care Unavailable JOSELUIS MAIER Attending Unavailab anayeli No, Pcp Primary Care Provider Unavailabl e [...] Un available Dr. Jeffery Weber Attending Provider [phone] Leydi Martin MD Primary Care Provider Tia JEONG, Jeffery Beaver Unavailable LALITO MCCARTY-BERT, VIOLA Devang Primary Care Physician Baljeet JEONG, Leydi Primary Care Provider JALEEL PLATA, TOI Attending Unavailable PHYSICIAN, NONE Primary Care Unavailable STARKEY CHILDREN'S SERVICE WORKER-INVOICE CLERK, VIOLA L Primary Care Unavai labREYES Yu DO Attending Unavailable PAUL DOBSON Attending Unavailable PHYSICIAN, NONE Primary Care Unavailable TOI MARMOLEJO DO Attending Unavailable PHYSICIAN, NONE Primary Care Unavailable YARA HENSON MD Attending Unavailable PHYSICIAN, NONE Primary Care Unavailable MARY ANN JEONG, DR LEDY Kirkpatrick Attending Unavai lable PHYSICIAN, NONE Primary Care Unavailable DEVAUGHN MCCARTY-BERT, AVANI Attending Unavailabl e PHYSICIAN, NONE Primary Care Unavailable ROSHNI FLORES PA-C Attending Itzel vailable PHYSICIAN, NONE Primary Care Unavailable DAVONTE ONEILL MD Attending Unavail able [employer] CHILDR[employer]'S SERVICE WORKER-INVOICE CLERK, VIOLA L Primary Care Unavai lable JALEEL PLATA, TOI Attending Unavailable PHYSICIAN, NONE Primary Care Unavailable DR LEDY REESE MD, V Attending Unavai lable PHYSICIAN, NONE Primary Care Unavailable BEFFATRINIDDA Referring Unava ilable GANTA, LEYDI Primary Care Unavailable BEFFA, TRINIDAD DARBY Referring Unava ilable GANTA, LEYDI Primary Care Unavailable BEFFTRINIDAD Guerrero Admitting Unava ilable BEFFATRINIDAD Attending Unava ilable GANTA, LEYDI Primary Care Unavailable BEFFATRINIDAD Referring Unava ilable GANTA, LEYDI Primary Care Unavailable BEFFA, TRINIDAD DARBY Referring Unava ilable GANTA, LEYDI Primary Care Unavailable SURESH GRIFFITHS Referring Unavailable GANTA, LEYDI Primary Care Unavailable VICKI MERAZ Attending Unavailable BEFFATRINIDAD Attending Unava ilable GANTA, LEYDI Primary Care Unavailable Unavailable Primary Care Provider UnavailJonathan Randolph MD Unavailable Jonathan Gonzalez MD Unavailable Care Physician, No Primary Primary Care Provider Unavailable Dr. Cristain Sanderson DO Emergency Provider Anayeli PLATA, Dr. Foster Attending Provider Starkey MEAL PACKER-C, Viola Primary Care Provider Joel JEONG, Brian Referring Provider Joel JEONG, Brian Emergency Provider Joel JEONG, Brian Attending Provider Jimbo JEONG, Dr. Waterman Emergency Provider Samuel PLATA, Dr. Jack Emergency Provider Starkey MEAL PACKER-C, Viola Primary Care Provider Jimbo JEONG, Dr. Waterman Attending Provider Samuel PLATA, Dr. Jack Attending Provider Gil JEONG, Dr. Anderson Emergency Provider Starkey MEAL PACKER-C, [facility] Primary Care Provider Gil JEONG, Dr. Anderson Attending Provider Dr. Joseluis Maier DO Emergency Provider [phone] Justin Cordero Attending Unavailable Starkey MEAL PACKER, Viola Primary Care Unavailable Guero Baker Attending Unavailable Starkey MEAL PACKER, Viola Primary Care Unavailable Starkey MEAL PACKER, Viola Primary Care Unavailable Joseluis Maier Attending Unavailable Guero Baker Attending Unavailable Starkey MEAL PACKER, Viola Primary Care Unavailable Starkey MEAL PACKER, Viola Primary Care Unavailable Cristian Sanderson Attending Unavailable Brian Maldonado Attending Unavailable Brian Maldonado Referring Unavailable Starkey MEAL PACKER, Viola Primary Care Unavailable Guevara Choi Attending Unavailable Starkey MEAL PACKER, Viola Primary Care Unavailable Guero Baker Attending Unavailable Starkey MEAL PACKER, Viola Primary Care Unavailable STARKEY CHILDREN'S SERVICE WORKER-INVOICE CLERK, VIOLA L Primary Care Physician STARKEY, VIOLA GIULIANO Primary Care Unavailable MACEY ISAACS Attending Unavailable [employer] CHILDREN'S SERVICE WORKER-INVOICE CLERK, VIOLA L Primary Care Unahenry SHAW MD, BLANCO Almonte Referring Unavailable VALERIA JEONG, BLANCO Almonte Attending Unavailable SHANIKA TIRADO DO Attending Unavailable [employer]KEY CHILDREN'S SERVICE WORKER-INVOICE CLERK, VIOLA L Primary Care RADHA Amin DO Attending Unavailable [employer]KEY CHILDREN'S SERVICE WORKER-INVOICE CLERK, VIOLA Siddiqi Primary Care Alireza RAMÍREZ, VIOLA Siddiqi Attending Alireza RAMÍREZ, VIOLA Siddiqi Primary Care Alireza hutchison Allergies Allergy Classification Reported Allergen(s) Allergy Type Date of Onset Reaction(s) Facility (20 sources) Cephalexin; Translations: [cephalexin] Drug Allergy 11-13-19 17 [facility] (20 sources) levETIRAcetam; Translations: [levetiracetam] Drug Allergy 10-24-19 17 [facility] (20 sources) Morphine; Translations: [morphine] Drug Allergy 10-24-19 17 Anaphylaxis, [facility] (20 sources) Naproxen; Translations: [naproxen] Drug Allergy 07-08-19 18 [facility] (20 sources) Tape, Paper Propensity to adverse reactions to substance [facility] (12 sources) Cephalexin; Translations: [cephalexin monohydrate] Drug Allergy 09-24-19 19 [facility] (2 sources) PAPER TAPE; Translations: [PAPER TAPE] Allergy to substance 09-24-19 19 [facility] (10 sources) Adhesive Tape-Silicones; Translations: [ADHESIVE TAPE-SILICONES] Drug Allergy 10-24-19 17 [facility] (13 sources) Adhesive Tape Propensity to adverse reactions to drug 03-08-20 22 [facility] Comment on above: PAPER TAPE (1 source) levETIRAcetam Drug Allergy [facility] (1 source) Morphine Drug Allergy [facility] (1 source) Naproxen Drug Allergy [facility] (2 sources) Levetiracetam Allergy to substance 10-24-19 [facility] (2 sources) Wound Dressing Adhesive Drug Intolerance 03-08-20 [facility] (1 source) Adhesive agent Drug Intolerance 03-08-20 [facility] (1 source) Adhesive Tape Drug allergy (disorder) 02-28-20 [facility] (1 source) levETIRAcetam Drug Allergy 02-28-20 [facility] (1 source) Morphine Drug Allergy 02-28-20 [facility] (1 source) Naproxen Drug Allergy 02-28-20 [facility] Medications Current Medications Medication Drug Class(es) [...] for Pain 20 tablet 0 04/03/2022 Active carBAMazepine 200 mg oral tablet (20 sources) [...] 26, 2016 11:00pm take 1 capsule by [facility] three times daily gabapentin (NEURONTIN) 100 MG capsule Take 100 mg by mouth 3 times daily. 0 Active Comment on above: Take 1 capsule by mo [facility] three times daily for 90 days. Take 1 capsule by [facility] three times a day for 90 days. Murphys (Nk) (4 sources) Start: Murphys (Nk) Active September 19, 2024 12:00am ondansetron 4 mg disintegrating oral tablet (5 sources) Serotonin-3 Receptor Antagonist Start: take 1 tablet by mouth every eight hours as needed for nausea Ondansetron 4 mg tablet,disintegrati ng Active 4 mg PO EVERY 8 HOURS NEEDED as needed for Nausea 10 0 February 27, 2025 12:00am Start: 08-01-2022 take 1 tablet by [facility] every eight hours as needed for nausea and vomiting ondansetron 4 mg oral tablet TAKE 1 TAB(S) ORAL EVERY 8 HOURS NEEDED FOR NAUSEA AND VOMITING Start Date: 08/01/22 Status: Ordered oxyCODONE hydrochloride 5 mg oral tablet (1 source) Opioid Agonist Start: 02-27-2025 take 1 tablet by mouth every six hours as needed for pain Oxycodone 5 mg tablet Active 5 mg PO EVERY 6 HOURS as needed for pain 12 3 0 February 27, 2025 Abdominal pain Unspecified abdominal pain sulfamethoxazole 800 mg / trimethoprim 160 mg oral tablet (1 source) Dihydrofolate Reductase Inhibitor Antibacterial, Sulfonamide Antimicrobial Start: 02-12-2023 End: 02-17-2023 take 1 tablet by mouth twice daily [...] June 01, 2023 Start: 07-18-2022 End: 07-25-2022 [place] 325- 5 mg oral tablet Dose = 1 tab(s), Oral, q4h, PRN Pain, scale 4-6, X 7 day(s), # 28 tab(s), 0 Refill(s), Pharmacy: [id number], Acute post-operative pain, 188, cm, 07/18/22 7:07:00 [...] every six hours as needed for pain [place] 325- 5 mg oral tablet Dose = 1 tab(s), Oral, q6h, PRN as needed for pain, X 3 day(s), # 12 tab(s), 0 Refill(s), Hematoma, 134 Start Date: 12/21/21 Stop Date: 12/24/21 Status: Ordered Start: 11-30-2021 End: 12-03-2021 take 1 tablet by mouth every six hours as needed for pain [place] 325- 5 mg oral tablet Dose = 1 tab(s), Oral, q6h, PRN As needed for severe pain, X 3 day(s), # 12 tab(s), 0 Refill(s), Postoperative abdominal pain, 141.1 Start Date: 11/30/21 Stop Date: 12/03/21 Status: Ordered Start: 10-06-2021 End: 10-09-2021 take 1 tablet by mouth every six hours [place] 325- 5 mg oral tablet Dose = 1 tab(s), Oral, q6h, # 12 tab(s), 0 Refill(s), Umbilical hernia, 146.5 Start Date: 10/06/21 Stop Date: 10/09/21 Status: Ordered acetaminophen 325 mg / oxyCODONE hydrochloride 5 mg oral tablet (20 sources) Opioid Agonist Start: 01-26-2025 End: 02-27-2025 Oxycodone-Acetaminophen (Percocet) 5-325 mg tablet Discontinued 1 {tbl} PO EVERY 6 HOURS as needed for pain 12 3 0 February 17, 2025 February 27, 2025 8:53pm Abdominal pain Ventral hernia Unspecified abdominal pain [...] Date: 09/21/18 Stop Date: 09/24/18 Status: Ordered benzonatate 100 mg oral capsule (10 sources) Non-narcotic Antitussive Start: 05-28-2022 End: 09-19-2024 [...] 2022 12:00am ibuprofen 600 mg oral tablet (19 sources) Nonsteroidal Anti-inflammatory Drug Start: 02-25-2024 End: [...] eric padilla predniSONE 20 mg oral tablet (8 sources) Start: 5 End: 5 take 3 [...] Episodic Complication of device; implant or graft (16 sources) Infected hernioplasty mesh; Translations: [Infection and inflammatory reaction due to other internal prosthetic devices, implants and grafts, initial encounter] Onset: 4 07-04-2023 Episodic Complications of surgical procedures or medical care (20 sources) Postoperative hematoma formation; Translations: [Postoperative hematoma] 12-13-2021 Episodic E Codes: Fall (7 sources) Fall from ladder; Translations: [Fall on and from ladder, initial encounter] 09-19-2024 Episodic E Codes: Fall (20 sources) Fall 09-05-2017 Epilepsy; convulsions (20 sources) Seizure; Translations: [Post traumatic seizures] Onset: 7 09-09-2013 Episodic Esophageal disorders (20 sources) Gastroesophageal reflux disease 09-09-2013 Chronic Essential hypertension (4 sources) Hypertensive disorder; Translations: [Essential (primary) hypertension] 12-17-2024 Chronic Fluid and electrolyte disorders (1 source) Hypo-osmolality and or hyponatremia; Translations: [Hypo-osmolality and hyponatremia] Onset: 3 Episodic Headache; including migraine (2 sources) Headache; including migraine; Translations: [Headache, unspecified] Onset: 2 Immunizations and screening for infectious disease (10 sources) Contact with and (suspected) exposure to other viral communicable diseases; Translations: [Contact with or suspected exposure to other viral communicable disease] 06-12-2023 Episodic Influenza (10 sources) Influenza due to Influenza A virus; Translations: [Influenza due to other identified influenza virus with other respiratory manifestations] 06-12-2023 Episodic Intestinal obstruction without hernia (1 source) Intestinal obstruction; Translations: [Ileus, unspecified] Onset: 3 Episodic Nausea and vomiting (1 source) Nausea and vomiting; Translations: [Nausea with vomiting, unspecified] Onset: 3 Episodic Open wounds of extremities (1 source) Puncture wound of foot 09-08-2024 Episodic Other aftercare (2 sources) Other long wall shear operator (current) drug therapy; Translations: [Other chcf (current) drug therapy] Onset: 2 Episodic Other bone disease and musculoskeletal deformities (7 sources) Clavicle pain; Translations: [Other specified disorders of bone, shoulder] 09-19-2024 Episodic Other connective tissue disease (8 sources) Tendinitis of long head of biceps brachii of right shoulder; Translations: [Bicipital tendinitis, right shoulder] 08-24-2024 Episodic Other connective tissue disease (1 source) Disorder of abdominal wall 05-24-2024 Episodic Other gastrointestinal disorders (1 source) Peritoneal [...] injuries and conditions due to external causes (8 sources) Injury of right shoulder; Translations: [Unspecified injury of right shoulder and upper arm, initial encounter] 08-24-2024 Episodic Other lower respiratory disease (1 source) Cough; Translations: [Cough, unspecified] Onset: 2 Episodic Other nervous system disorders (12 sources) Postoperative pain ; Translations: [Other acute [...] encounter] Onset: 3 Episodic Residual codes; unclassified (4 sources) Family history of cancer of colon 08-20-2023 Episodic Residual codes; unclassified (8 sources) Tobacco use and exposure - finding; [...] Test Name Value Interpretation Reference Range Facility [facility] 03-02-2025 [facility] HNO ID: [id number] Author: BRANDO ANN TECHNSTEPHANIE Service: Radiology Author Type: Technologist Type: Allied Health Filed: 03/02/2025 14:37 Note Text: Radiology Service Progress Note DATE OF SERVICE: March 02, 2025 TIME: 2:36 PM PATIENT IDENTITY VERIFICATION COMPLETED USING TWO (2) STANDARD IDENTIFIERS: Name and Date of confirmed by patient verbally and Name and Date of confirmed by identification band. FALL SCREENING: Has the patient had 2 falls in the last year or 1 fall with injury or currently using an Ambulatory Assistive Device (Walker, Cane, Wheelchair, Crutches, etc.)? Emergency Room Patient: Screened in ED PATIENT GENDER DATA: Assigned male at PATIENT RELEVANT IMPLANT DATA REVIEWED: Yes PATIENT PRESENTS WITH AN IMPLANTABLE OR ATTACHED CLINICAL NURSING INSTRUCTOR: No ALLERGIES: Reviewed and unchanged CONTRAST ALLERGY: NO. EXAM: CT -CONTRAST INDUCED NEPHROPATHY RISK FACTORS: Not applicable CREATININE: Creatinine Date Value Ref Range Status 03/02/2025 0.76 0.73 - 1.22 mg/dL Final 09/16/2023 0.73 0.73 - 1.22 mg/dL Final 11/12/2016 0.77 0.73 - 1.22 mg/dL Final Estimated Glomerular Filtration Rate Date Value Ref Range Status 03/02/2025 112 >=60 mL/min/1.73m? Final Comment: Estimated Glomerular Filtration Rate (eGFR) is calculated using the 2020 CKD-EPI creatinine equation. This equation utilizes serum creatinine, sex, and age as parameters. The creatinine assay has traceable calibration to isotope dilution-mass spectrometry. Refer to KDIGO guidelines for clinical interpretation. In patients with unstable renal function, e.g. those with acute kidney injury, the eGFR may not accurately reflect actual GFR. eGFR- Date Value Ref Range Status 11/12/2016 >60 Final P.O.C.T. RESULTS: POC done: Yes, See Lab Tab March 02, 2025 TREATMENT: N/A PERIPHERAL IV DATA: Ambulatory: A peripheral IV was started in the Right antecubital site with a Angio cath: 20 gauge. RADIOLOGY DEPARTMENT: CT; Exam(s) Completed: Abdomen/Pelvis . Anesthesia: No SIGNATURE: Brando Ann, TECHNOLOGIST PATIENT NAME: Patrick Koroma DATE: March 02, 2025 TIME: 2:36 PM Normal [facility] CBC W Auto Differential pane l (Bld)on 03-02-2025 Basophils (Bld) [#/Vol] 0.08 10*3/uL Normal <0.11 [facility] Comment on above: Order Comment: Speci pedro Type: BLOOD SPECIMEN Ordering Facility: [facility] Address: [address] [place] [address] Performed By: #### 5 7021-8 #### [facility] CLIA [id number] [address] [place] [address] [place] [facility] Basophils/100 WBC (Bld) 0.9 % Normal [facility] Comment on above: Order Comment: Vikash vasquez Type: BLOOD SPECIMEN Ordering Facility: [facility] Address: [address] [place] [address] Performed By: #### 5 7021-8 #### [facility] CLIA [id number] [address] [place] Differential cell count method Nom (Bld) Auto Normal [facility] Comment on above: Order Comment: Speci men Type: BLOOD SPECIMEN Ordering Facility: [facility] Address: [address] [place] [address] Performed By: #### 5 7021-8 #### [facility] CLIA [id number] [address] [place] [address] [place] Eosinophils (Bld) [#/Vol] 0.19 10*3/uL Normal <0.46 [facility] Comment on above: Order Comment: Speci men Type: BLOOD SPECIMEN Ordering Facility: [facility] Address: [address] [place] [address] Performed By: #### 5 7021-8 #### [facility] CLIA [id number] [address] [place] Eosinophils/100 WBC (Bld) 2.1 % Normal [facility] Comment on above: Order Comment: Speci men Type: BLOOD SPECIMEN Ordering Facility: [facility] Address: [address] [place] [address] Performed By: #### 5 7021-8 #### [facility] CLIA [id number] [address] [place] Erythrocyte distribution width (RBC) [Ratio] 13.0 % Normal 11.5-15.0 [facility] Comment on above: Order Comment: Speci men Type: BLOOD SPECIMEN Ordering Facility: [facility] Address: [address] [place] [address] Performed By: #### 5 7021-8 #### [facility] CLIA [id number] [address] [place] Hematocrit (Bld) [Volume fraction] 42.1 % Normal 39.0-51.0 [facility] Comment on above: Order Comment: Speci men Type: BLOOD SPECIMEN Ordering Facility: [facility] Address: [address] [place] [address] Performed By: #### 5 7021-8 #### [facility] CLIA [id number] [address] [place] Hemoglobin (Bld) [Mass/Vol] 14.3 g/dL Normal 13.0-17.0 [facility] Comment on above: Order Comment: Speci men Type: BLOOD SPECIMEN Ordering Facility: [facility] Address: [address] [place] [address] Performed By: #### 5 7021-8 #### [facility] CLIA [id number] [address] [place] [address] [place] Immature granulocytes (Bld) [#/Vol] 10*3/uL Normal <0.10 [facility] Comment on above: Order Comment: Speci men Type: BLOOD SPECIMEN Ordering Facility: [facility] Address: [address] [place] [address] Performed By: #### 5 7021-8 #### [facility] CLIA [id number] [address] Immature granulocytes/100 WBC (Bld) 0.2 % Normal [facility] Comment on above: Order Comment: Speci men Type: BLOOD SPECIMEN Ordering Facility: [facility] Address: [address] [place] [address] Performed By: #### 5 7021-8 #### [facility] CLIA [id number] [address] [place] Lymphocytes (Bld) [#/Vol] 1.90 10*3/uL Normal 1.00-4.00 [facility] Comment on above: Order Comment: Speci men Type: BLOOD SPECIMEN Ordering Facility: [facility] Address: [address] [place] [address] Performed By: #### 5 7021-8 #### [facility] CLIA [id number] [address] [place] Lymphocytes/100 WBC (Bld) 21.0 % Normal [facility] Comment on above: Order Comment: Speci men Type: BLOOD SPECIMEN Ordering Facility: [facility] Address: [address] [place] [address] Performed By: #### 5 7021-8 #### [facility] CLIA [id number] [address] [place] MCH (RBC) [Entitic mass] 31.5 pg Normal 26.0-34.0 [facility] Comment on above: Order Comment: Speci men Type: BLOOD SPECIMEN Ordering Facility: [facility] Address: [address] [place] [address] Performed By: #### 5 7021-8 #### [facility] CLIA [id number] [address] MCHC (RBC) [Mass/Vol] 34.0 g/dL Normal 30.5-36.0 [facility] Comment on above: Order Comment: Speci men Type: BLOOD SPECIMEN Ordering Facility: [facility] Address: [address] [place] [address] Performed By: #### 5 7021-8 #### [facility] CLIA [id number] [address] MCV (RBC) [Entitic vol] 92.7 fL Normal 80.0-100.0 [facility] Comment on above: Order Comment: Speci men Type: BLOOD SPECIMEN Ordering Facility: [facility] Address: [address] [place] [address] Performed By: #### 5 7021-8 #### [facility] CLIA [id number] [address] Monocytes (Bld) [#/Vol] 0.61 10*3/uL Normal <0.87 [facility] Comment on above: Order Comment: Speci men Type: BLOOD SPECIMEN Ordering Facility: [facility] Address: [address] [place] [address] Performed By: #### 5 7021-8 #### [facility] CLIA [id number] [address] Monocytes/100 WBC (Bld) 6.7 % Normal [facility] Comment on above: Order Comment: Speci men Type: BLOOD SPECIMEN Ordering Facility: [facility] Address: [address] [place] [address] Performed By: #### 5 7021-8 #### [facility] CLIA [id number] [address] [place] [address] [place] Neutrophils (Bld) [#/Vol] 6.24 10*3/uL Normal 1.45-7.50 [facility] Comment on above: Order Comment: Speci men Type: BLOOD SPECIMEN Ordering Facility: [facility] Address: [address] [place] [address] Performed By: #### 5 7021-8 #### [facility] CLIA [id number] [address] [place] Neutrophils/100 WBC (Bld) 69.1 % Normal [facility] Comment on above: Order Comment: Speci men Type: BLOOD SPECIMEN Ordering Facility: [facility] Address: [address] [place] [address] Performed By: #### 5 7021-8 #### [facility] CLIA [id number] [address] [place] [address] [place] Nucleated RBC (Bld) [#/Vol] 10*3/uL Normal <0.01 [facility] Comment on above: Order Comment: Speci men Type: BLOOD SPECIMEN Ordering Facility: [facility] Address: [address] [place] [address] Performed By: #### 5 7021-8 #### [facility] CLIA [id number] [address] [place] Nucleated RBC/100 WBC (Bld) [Ratio] 0.0 /100 WBC Normal [facility] Comment on above: Order Comment: Speci men Type: BLOOD SPECIMEN Ordering Facility: [facility] Address: [address] [place] [address] Performed By: #### 5 7021-8 #### [facility] CLIA [id number] [address] [place] [address] [place] Platelet mean volume (Bld) [Entitic vol] 9.7 fL Normal 9.0-12.7 [facility] Comment on above: Order Comment: Speci men Type: BLOOD SPECIMEN Ordering Facility: [facility] Address: [address] [place] [address] Performed By: #### 5 7021-8 #### [facility] CLIA [id number] [address] [place] [address] [facility] [place] Platelets (Bld) [#/Vol] 287 10*3/uL Normal 150-400 [facility] Comment on above: Order Comment: Speci men Type: BLOOD SPECIMEN Ordering Facility: [facility] Address: [address] [place] [address] Performed By: #### 5 7021-8 #### [facility] CLIA [id number] [address] [place] [address] [place] RBC (Bld) [#/Vol] 4.54 10*6/uL Normal 4.20-6.00 [facility] Comment on above: Order Comment: Speci men Type: BLOOD SPECIMEN Ordering Facility: [facility] Address: [address] [place] [address] Performed By: #### 5 7021-8 #### [facility] CLIA [id number] [address] [place] [address] [place] WBC (Bld) [#/Vol] 9.04 10*3/uL Normal 3.70-11.00 [facility] Comment on above: Order Comment: Speci men Type: BLOOD SPECIMEN Ordering Facility: [facility] Address: [address] [place] [address] Performed By: #### 5 7021-8 #### [facility] CLIA [id number] [address] OF [facility] CT ABD/PEL W IVCONon 025 CT ABD/PEL W IVCON * * *Final Report* * * DATE OF EXAM: Mar 02 2025 2:45PM [facility] [place] [facility] ABD/PEL W IVCON / PROCEDURE REASON: Bowel obstruction suspected * * * * Physician Interpretation * * * * EXAMINATION: CT ABD/PEL W IVCON CLINICAL HISTORY: Bowel obstruction suspected TECHNIQUE: CT of the abdomen and pelvis was performed using standard technique, scanning from just above the dome of the diaphragm to the symphysis pubis. Contrast: IV: 100 ml of Omnipaque 350 : ml of Dose-Length Product (DLP): 1984 mGy*cm CT Dose Reduction Employed: Automated exposure control(AEC) and iterative recon COMPARISON: No available prior. RESULT: Lower thorax: Unremarkable. Liver: No mass. Biliary: Gallbladder is nondistended. No biliary duct dilatation. Spleen: No mass. No splenomegaly. Pancreas: No mass or ductal dilatation. Adrenal glands: Unremarkable. Kidneys: No solid, enhancing mass or hydronephrosis in either kidney. Vascular: Normal caliber abdominal aorta . GI tract: No dilation or wall thickening. Appendix surgically absent. No pericolonic inflammatory changes. Pelvis: No mass, fluid or collection. Unremarkable urinary bladder Lymph nodes: No abdominal or pelvic lymphadenopathy, by size criteria. Mesentery/Peritoneum/ Retroperitoneum: No ascites, pneumoperitoneum or suspicious mass. Soft Tissues/Bones: No acute finding.. Diastases of the abdominal rectus muscles with branching, fat-containing ventral hernia. IMPRESSION: No acute abnormality or bowel obstruction. Chlorine Plant Operator: [facility] Transcribe Date/Time: Mar 02 2025 3:29P Dictated by : ELIDA MORTON MD This examination was interpreted and the report reviewed and electronically signed by: ELIDA MORTON MD on Mar 02 2025 3:31PM EST [id number] N [facility] CT ABDOMEN/PELVIS W/O CONTRA STon 03-02-2025 CT ABDOMEN/PELVIS W/O CONTRAST ORIGINAL EXAMINATION: CT OF THE ABDOMEN AND PELVIS WITHOUT CONTRAST 03/01/2025 11:44 pm TECHNIQUE: CT of the abdomen and pelvis was performed without the administration of intravenous contrast. Multiplanar reformatted images are provided for review. Automated exposure control, iterative reconstruction, and/or weight based adjustment of the mA/kV was utilized to reduce the radiation dose to as low as reasonably achievable. COMPARISON: CT abdomen and pelvis on 05/16/2024 HISTORY: ORDERING SYSTEM PROVIDED HISTORY: Reason for Exam: Hernia suspected, abdominal wall FINDINGS: Lower Chest: There is no acute abnormality at the lung bases. Organs: The liver, biliary tree, pancreas, spleen, adrenal glands, and kidneys show no sign of abnormality. GI/Bowel: There is no intestinal obstruction or inflammation. The appendix has been removed. There is no free intraperitoneal air or abnormal fluid collection in the abdomen. Pelvis: Urinary bladder is normal in size and appearance. The prostate is not enlarged. There is no pelvic mass or abnormal fluid collection. Peritoneum/Retroperit oneum: Abdominal aorta is nonaneurysmal. There is no retroperitoneal lymph node enlargement. Bones/Soft Tissues: There is a large ventral hernia. There is 5 cm the rectus abdominus muscles. The ventral hernia contains fat and measures 22 cm transverse by a 3.8 cm AP and 11.4 cm craniocaudal length, demonstrates significant increase in size since 05/16/2024 (prior measurements 11.1 x 3.1 x 8.7 cm). No bowel loops extend into the hernia. No acute skeletal abnormality is present. IMPRESSION: 1. Large fat-containing ventral hernia has increased in size since 05/16/2024. 2. No acute intra-abdominal or intrapelvic abnormality. Interpreted by: Milind Stephens MD Preliminary Report By: Milind Stephens MD Electronically signed By Milind Stephens MD Dictated Date: 03/01/2025 11:51:34 PM Prelim Date: 03/02/2025 12:00:47 AM Sign Date: 03/02/2025 12:00:47 AM Ordering Provider: BLANCO Nelson [facility] Comprehensive metabolic 2000 panelon 03-02-2025 Albumin [Mass/Vol] 4.0 g/dL Normal 3.9-4.9 [facility] Comment on above: Order Comment: Speci men Type: BLOOD SPECIMEN Ordering Facility: [facility] Address: [address] [place] [address] Performed By: #### 3 040-3, 40578-8 #### [facility] CLIA [id number] [address] STATES OF [facility] ALP [Catalytic activity/Vol] 35 U/L Low 38-113 [facility] Comment on above: Order Comment: Speci men Type: BLOOD SPECIMEN Ordering Facility: [facility] Address: [address] [place] [address] Performed By: #### 3 040-3, 07519-5 #### [facility] CLIA [id number] [address] [place] ALT [Catalytic activity/Vol] 16 U/L Normal 10-54 [facility] Comment on above: Order Comment: Speci men Type: BLOOD SPECIMEN Ordering Facility: [facility] Address: [address] [place] [address] Performed By: #### 3 040-3, #### [facility] CLIA [id number] [address] [place] [address] [place] Anion gap [Moles/Vol] 7 mmol/L Low 8-15 [facility] Comment on above: Order Comment: Speci men Type: BLOOD SPECIMEN Ordering Facility: [facility] Address: [address] [place] [address] Performed By: #### 3 040-3, #### [facility] CLIA [id number] [address] [place] [address] [place] AST [Catalytic activity/Vol] 17 U/L Normal 14-40 [facility] Comment on above: Order Comment: Speci men Type: BLOOD SPECIMEN Ordering Facility: [facility] Address: [address] [place] [address] Performed By: #### 3 040-3, #### [facility] CLIA [id number] [address] [place] Bilirubin [Mass/Vol] 0.4 mg/dL Normal 0.2-1.3 [facility] Comment on above: Order Comment: Speci men Type: BLOOD SPECIMEN Ordering Facility: [facility] Address: [address] [place] [address] Performed By: #### 3 040-3, #### [facility] CLIA [id number] [address] OF [facility] Calcium [Mass/Vol] 8.9 mg/dL Normal 8.5-10.2 [facility] Comment on above: Order Comment: Speci men Type: BLOOD SPECIMEN Ordering Facility: [facility] Address: [address] [place] [address] Performed By: #### 3 040-3, 04721-0 #### [facility] CLIA [id number] [address] [place] Chloride [Moles/Vol] 105 mmol/L Normal 98-107 [facility] Comment on above: Order Comment: Speci men Type: BLOOD SPECIMEN Ordering Facility: [facility] Address: [address] [place] [address] Performed By: #### 3 040-3, 70772-7 #### [facility] CLIA [id number] [address] [place] [address] [place] CO2 [Moles/Vol] 26 mmol/L Normal 22-30 [facility] Comment on above: Order Comment: Vikash vasquez Type: BLOOD SPECIMEN Ordering Facility: [facility] Address: [address] [place] [address] Performed By: #### 3 040-3, 34987-7 #### [facility] CLIA [id number] [address] [place] Creatinine [Mass/Vol] 0.76 mg/dL Normal 0.73-1.22 [facility] Comment on above: Order Comment: Vikash vasquez Type: BLOOD SPECIMEN Ordering Facility: [facility] Address: [address] [place] [address] Performed By: #### 3 040-3, 32861-5 #### [facility] CLIA [id number] [address] eGFRcr SerPlBld CKD-EPI 2020 112 mL/min/1.73m??? Normal >=60 [facility] Comment on above: Order Comment: Vikash vasquez Type: BLOOD SPECIMEN Ordering Facility: [facility] Address: [address] [place] [address] Result Comment: Katie mated Glomerular Filtration Rate [...] accurately reflect actual GFR. Performed By: #### 3 040-3, 37003-6 #### [facility] CLIA [id number] [address] [place] Glucose [Mass/Vol] 89 mg/dL Normal 74-99 [facility] Comment on above: Order Comment: Vikash vasquez Type: BLOOD SPECIMEN Ordering Facility: [facility] Address: [address] [place] [address] Result Comment: The [place] Diabetes Association (ADA) provides guidance for cutoff [...] Standards of Medical Care in Diabetes 2016, [place] [employer]. Diabetes Care. 2016.39(Suppl 1). Performed By: #### 3 040-3, 63257-8 #### [facility] CLIA [id number] [address] [place] [address] [place] Potassium [Moles/Vol] 4.6 mmol/L Normal 3.7-5.1 [facility] Comment on above: Order Comment: Vikash vasquez Type: BLOOD SPECIMEN Ordering Facility: [facility] Address: [address] [place] [address] Performed By: #### 3 040-3, 40547-4 #### [facility] CLIA [id number] [address] [place] [address] [place] Protein [Mass/Vol] 6.8 g/dL Normal 6.3-8.0 [facility] Comment on above: Order Comment: Vikash vasquez Type: BLOOD SPECIMEN Ordering Facility: [facility] Address: [address] [place] [address] Performed By: #### 3 -3, 33113-1 #### [facility] CLIA [id number] [address] [place] [address] [place] Sodium [Moles/Vol] 138 mmol/L Normal 136-144 [facility] Comment on above: Order Comment: Vikash vasquez Type: BLOOD SPECIMEN Ordering Facility: [facility] Address: [address] [place] [address] Performed By: #### 3 040-3, 72472-9 #### [facility] CLIA [id number] [address] [place] [address] [place] Urea nitrogen [Mass/Vol] 6 mg/dL Low 9-24 [facility] Comment on above: Order Comment: Speci men Type: BLOOD SPECIMEN Ordering Facility: [facility] Address: [address] [place] [address] Performed By: #### 3 040-3, 35339-2 #### [facility] CLIA [id number] [address] [place] [address] [facility] ED NOTEon 03-02-2025 ED NOTE HNO ID: [id number] Author: BLAINE RABAGO RN Service: ? Author Type: Registered Nurse Type: ED Notes Filed: 03/02/2025 16:33 Note Text: Pt stable and ambulatory upon departure. Discharge instructions, prescriptions and details for follow up care given and reviewed. Pt verbalized understanding of medication's prescribed as well as how to follow up to continue their care. PT educated that they should return to the ED if their condition worsens. PT verbalized understanding of the education. Pt departed from ED. [facility] ED NOTE HNO ID: [id number] Author: BLAINE RABAGO RN Service: ? Author Type: Registered Nurse Type: ED Notes Filed: 03/02/2025 16:02 Note Text: Provider at bedside for reeval [facility] ED NOTE HNO ID: [id number] Author: BLAINE RABAGO RN Service: ? Author Type: Registered Nurse Type: ED Notes Filed: 03/02/2025 14:35 Note Text: Patient given a warm blanket [facility] ED PROV NOTEon 03-02-2025 ED PROV NOTE HNO ID: [id number] Author: MACEY ISAACS DO Service: Emergency Medicine Author Type: Physician Type: ED Provider Notes Filed: 03/02/2025 17:30 Note Text: ED Provider Note Patient Name: Patrick Koroma : 1980 SERVICE DATE: 03/02/25 History Patient presents with: Abdominal Pain: Has known hernia. Scheduled for surgery in March at [facility] for same. Pain has been worsening for the past 2 days. HPI The patient presents emergency department for abdominal pain. He has had recurrent midline incisional hernias, has a recurrent bulge in supraumbilical region with CT confirmation of recurrent incisional hernia on May 2024. States he has plans for repair of this this upcoming March. 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 Appearance: He is well-developed. HENT: Head: Normocephalic and atraumatic. Eyes: Conjunctiva/sclera: Conjunctivae normal. Pupils: Pupils are equal, round, and reactive to light. Neck: Trachea: No tracheal deviation. Cardiovascular: Rate and Rhythm: Normal rate and regular rhythm. Heart sounds: No murmur heard. Pulmonary: Effort: Pulmonary effort is normal. Breath sounds: No stridor. No wheezing or rales. Abdominal: General: Bowel sounds are normal. There is no distension. Palpations: Abdomen is soft. Tenderness: There is abdominal tenderness in the periumbilical area and suprapubic area. Musculoskeletal: General: No deformity. Normal range of motion. Cervical back: Normal range of motion and neck supple. Skin: General: Skin is warm and dry. Capillary Refill: Capillary refill takes less than 2 seconds. Findings: No rash. Neurological: Mental Status: He is alert. Sensory: No sensory deficit. Motor: No abnormal muscle tone. Diagnostic Testing ED Labs Ordered and Reviewed COMPREHENSIVE METABOLIC PANEL - Abnormal; Notable for the following components: Result Value Ref Range Alkaline Phosphatase 35 (*) 38 - 113 U/L BUN 6 (*) 9 - 24 mg/dL Anion Gap 7 (*) 8 - 15 mmol/L All other components within normal limits LIPASE - Normal COMPLETE BLOOD COUNT AND DIFFERENTIAL Procedures ED Course / Clinical Impression Clinical Impressions as of 03/02/25 1730 Ventral hernia without obstruction or gangrene Abdominal pain, unspecified abdominal location MDM / Disposition / Plan The patient presented the ED for abdominal pain in setting of recurrent incisional hernia. Hernia irreducible, vital stable afebrile, CT imaging ordered and labs and pain medication Labs unremarkable and CT shows no acute abnormality or bowel obstruction, pain is now controlled will give a few days of pain medication can follow-up with general surgery History and Record Review Clinical information obtained from an independent historian. History obtained from or confirmed by: family member. External record(s) reviewed: prior inpatient record, prior outpatient record, prior labs/imaging and immunization history. Differential Diagnoses - Hernia, obstruction, incarceration Management Management of the patient was discussed with:see ED course I performed an independent interpretation of the following:telemetry Telemetry: My interpretation is Normal sinus rhythm Radiology Reports CT ABD/PEL W IVCON Final Result IMPRESSION: No acute abnormality or bowel obstruction. 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 Normal [facility] Lipase SerPl-cCncon 03-02-20 25 Lipase [Catalytic activity/Vol] 18 U/L Normal 16-61 [facility] Comment on above: Order Comment: Speci men Type: BLOOD SPECIMEN Ordering Facility: [facility] Address: [address] [place] [address] Performed By: #### 3 040-3, 84702-4 #### [facility] CLIA [id number] [address] [place] [address] [place] Abdomen/Pelvis W IV Cont ONL Yon 02-27-2025 Abdomen/Pelvis W IV Cont ONLY [facility] Services [address] [place] [address] Abdomen/Pelvis W IV Cont ONLY MR#: [id number] Acct: [id number] Name: PATRICK KOROMA Rep #: [id number] : 1980 M 45 From: Mary Collazo MD PCP: Viola Starkey, YULI-C Status: REG ER Study: Abdomen/Pelvis W IV Cont ONLY Date of Exam: Exam# [id number] Ordering Dr: Joseluis Maier DO PROCEDURE: ABDOMEN/PELVIS W IV CONT ONLY 02/27/2025 REASON FOR EXAM: MID ABDOMINAL PAIN, HISTORY OF HERNIA TECHNIQUE: Procedure Code: CTABDPELIV Modality: CT Procedure: ABDOMEN/PELVIS W IV CONT ONLY Coronal and Sagittal reconstruction series were provided. CONTRAST: Isovue 370 VOLUME: 100 mL One or more dose reduction techniques were used (e.g., Automated exposure control, adjustment of the mA and/or kV according to patient size, use of iterative reconstruction technique. RADIATION DOSE SUMMARY: CTDlvol: 13.30, 24.18 mGy DLP: 1361.31 mGycm FINDINGS: LUNG BASES: No basilar airspace consolidation or pleural effusion. LIVER: Unremarkable. GALLBLADDER: Unremarkable. No calcified stone. BILE DUCTS: No ductal dilation. PANCREAS: Unremarkable. SPLEEN: Unremarkable. ADRENAL GLANDS: Unremarkable. KIDNEYS: The kidneys enhance symmetrically. Similar-appearing hypodense left renal lesions, the largest is 0.8 cm, likely cysts. No hydronephrosis or hydroureter. STOMACH AND BOWEL: No obstruction or perforation. No wall thickening. No CT evidence of colitis or acute diverticulitis. APPENDIX: The appendix is not definitively seen. RETRO/PERITONEUM: No free fluid. No free air. LYMPH NODES: No lymphadenopathy. PELVIC ORGANS: Unremarkable as visualized. VASCULATURE: No aortic aneurysm. ABDOMINAL WALL AND SOFT TISSUES: Chronic postoperative changes in the ventral abdominal wall with stable moderate-sized midline fat- containing hernia. BONES: No fracture or suspicious osseous abnormality. CT/Abdomen/Pelvis W IV Cont ONLY IMPRESSION: NO ACUTE FINDINGS IN THE ABDOMEN OR PELVIS. Reading Location: [facility] CC: ERIC Starkey; Dr. Joseluis Maier DO Chlorine Plant Operator: Signed Normal [facility] Absolute lymphocyte countOrd ered By: Joseluis Maier on 02-27-2025 Lymphocytes Auto (Unsp spec) [#/Vol] 3.43 10*3/uL 0.83-4.51 [facility] Absolute neutrophil countOrd ered By: Joseluis Maier on 02-27-2025 Neutrophils (Bld) [#/Vol] 5.5 10*3/uL 2.0-7.7 [facility] Anion gap in Serum or Plasma Ordered By: Joseluis Maier on 02-27-2025 Anion gap [Moles/Vol] 11 mmol/L 5-15 [facility] Automated lymphocyte count a s percentage of total leukocytesOrdered By: Joseluis Maier on 02-27-2025 Lymphocytes/100 WBC Auto (Unsp spec) 34.6 % 19-41 [facility] BUN/creatinine ratioOrdered By: Joseluis Maier on 02-27-2025 Urea nitrogen/Creatinine [Mass ratio] 14.1 mg/mg 10-20 [facility] Basophil percentageOrdered B y: Joseluis Maier on 02-27-2025 Basophils/100 WBC (Bld) 0.6 % 0-1 [facility] Bilirubin, totalOrdered By: Joseluis Maier on 02-27-2025 Bilirubin [Mass/Vol] mg/dL 0.00-1.30 [facility] CBC W/Diff, Automatedon 02-14 Absolute Lymph 3.43 X10 3/uL Normal 0.83-4.51 [facility] Comment on above: Performed By: #### L 503.6005, L100.0100, L501.2450, L500.4050 ####[facility] [address] [place], [address] Absolute Neut 5.5 X10 3/uL Normal 2.0-7.7 [facility] Comment on above: Performed By: #### L 503.6005, L100.0100, L501.2450, L500.4050 ####[facility] [address] [place], [address] Basophils/100 WBC (Bld) 0.6 % Normal 0-1 [facility] Comment on above: Performed By: #### L 503.6005, L100.0100, L501.2450, L500.4050 ####[facility] [address] [place], [address] Eosinophils/100 WBC (Bld) 2.2 % Normal 0-5 [facility] Comment on above: Performed By: #### L 503.6005, L100.0100, L501.2450, L500.4050 ####[facility] [address] [place], [address] Erythrocyte distribution width (RBC) [Ratio] 13.1 % Normal 11.6-14.6 [facility] Comment on above: Performed By: #### L 503.6005, L100.0100, L501.2450, L500.4050 ####[facility] [address] [place], [address] Hematocrit (Bld) [Volume fraction] 39.4 % Low 40-54 [facility] Comment on above: Performed By: #### L 503.6005, L100.0100, L501.2450, L500.4050 ####[facility] [address] [place], [address] Hemoglobin (Bld) [Mass/Vol] 13.4 g/dL Normal 13.0-16.5 [facility] Comment on above: Performed By: #### L 503.6005, L100.0100, L501.2450, L500.4050 ####[facility] [address] [place], [address] IG% 0.300 Normal 0.0-0.9 [facility] Comment on above: Result Comment: IG% - Immature Granulocytes (promyelocytes, myelocytes and metamyelocytes) > 1% indicates that a LEFT SHIFT is Present. Performed By: #### L 503.6005, L100.0100, L501.2450, L500.4050 ####[facility] [address] [place], [address] Lymphocytes/100 WBC (Bld) 34.6 % Normal 19-41 [facility] Comment on above: Performed By: #### L 503.6005, L100.0100, L501.2450, L500.4050 ####[facility] [address] [place], [address] MCH (RBC) [Entitic mass] 31.2 pg Normal 27.0-32.0 [facility] Comment on above: Performed By: #### L 503.6005, L100.0100, L501.2450, L500.4050 ####[facility] [address] [place], [address] MCHC (RBC) [Mass/Vol] 34.0 g/dL Normal 32-36 [facility] Comment on above: Performed By: #### L 503.6005, L100.0100, L501.2450, L500.4050 ####[facility] [address] [place], [address] MCV (RBC) [Entitic vol] 91.8 fL Normal 80-94 [facility] Comment on above: Performed By: #### L 503.6005, L100.0100, L501.2450, L500.4050 ####[facility] [address] [place], [address] Monocytes/100 WBC (Bld) 6.8 % Normal 0-10 [facility] Comment on above: Performed By: #### L 503.6005, L100.0100, L501.2450, L500.4050 ####[facility] [address] [place], [address] Neutrophils/100 WBC (Bld) 55.5 % Normal 47-70 [facility] Comment on above: Performed By: #### L 503.6005, L100.0100, L501.2450, L500.4050 ####[facility] [address] [place], [address] Nucleated RBC (Bld) [#/Vol] 0 10*3/uL Normal 0-5 [facility] Comment on above: Performed By: #### L 503.6005, L100.0100, L501.2450, L500.4050 ####[facility] [address] [place], [address] Platelet mean volume (Bld) [Entitic vol] 9.5 fL Normal 6.2-12.0 [facility] Comment on above: Performed By: #### L 503.6005, L100.0100, L501.2450, L500.4050 ####[facility] [address] [place], [address] Platelets (Bld) [#/Vol] 280 10*3/uL Normal 150-450 [facility] Comment on above: Performed By: #### L 503.6005, L100.0100, L501.2450, L500.4050 ####[facility] [address] [place], [address] RBC (Bld) [#/Vol] 4.29 10*6/uL Low 4.6-6.2 [facility] Comment on above: Performed By: #### L 503.6005, L100.0100, L501.2450, L500.4050 ####[facility] [address] [place], [address] RDW SD 43.8 fl Normal 35.1-43.9 [facility] Comment on above: Performed By: #### L 503.6005, L100.0100, L501.2450, L500.4050 ####[facility] [address] [place], [address] WBC (Bld) [#/Vol] 9.9 10*3/uL Normal 4.4-11.0 [facility] Comment on above: Performed By: #### L 503.6005, L100.0100, L501.2450, L500.4050 ####[facility] [address] [place], [address] Carbon dioxide, total [Moles /volume] in Central venous bloodOrdered By: Joseluis Maier on 02-27-2025 CO2 [Moles/Vol] 22.6 mmol/L 21.0-32.0 [facility] Chloride assayOrdered By: Nicki Maier on 02-27-2025 Chloride [Moles/Vol] 107 mmol/L 98-108 [facility] Comprehensive Metabolic Prof ilon 02-27-2025 Albumin [Mass/Vol] 3.8 g/dL Normal 3.5-5.0 [facility] Comment on above: Performed By: #### L 503.6005, L100.0100, L501.2450, L500.4050 ####[facility] [address] [place], [address] Albumin/Globulin [Mass ratio] 1.5 {ratio} Normal 0.9-2.4 [facility] Comment on above: Performed By: #### L 503.6005, L100.0100, L501.2450, L500.4050 ####[facility] [address] [place], [address] ALK PHOS 34 U/L Low 40-129 [facility] Comment on above: Performed By: #### L 503.6005, L100.0100, L501.2450, L500.4050 ####[facility] [address] [place], [address] ALT [Catalytic activity/Vol] 18 U/L Normal <=46 [facility] Comment on above: Performed By: #### L 503.6005, L100.0100, L501.2450, L500.4050 ####[facility] [address] [place], [address] AST [Catalytic activity/Vol] 21 U/L Normal <=37 [facility] Comment on above: Performed By: #### L 503.6005, L100.0100, L501.2450, L500.4050 ####[facility] [address] [place], [address] BUN/CRE 14.1 RATIO Normal 10-20 [facility] Comment on above: Performed By: #### L 503.6005, L100.0100, L501.2450, L500.4050 ####[facility] [address] [place], [address] Calcium [Mass/Vol] 9.3 mg/dL Normal 7.6-11.0 [facility] Comment on above: Performed By: #### L 503.6005, L100.0100, L501.2450, L500.4050 ####[facility] [address] [place], [address] Chloride [Moles/Vol] 107 mmol/L Normal 98-108 [facility] Comment on above: Performed By: #### L 503.6005, L100.0100, L501.2450, L500.4050 ####[facility] [address] [place], [address] CO2 [Moles/Vol] 22.6 mmol/L Normal 21.0-32.0 [facility] Comment on above: Performed By: #### L 503.6005, L100.0100, L501.2450, L500.4050 ####[facility] [address] [place], [address] Creatinine [Mass/Vol] 0.82 mg/dL Normal 0.70-1.20 [facility] Comment on above: Performed By: #### L 503.6005, L100.0100, L501.2450, L500.4050 ####[facility] [address] [place], [address] ECRCL 178.28 ml/min Normal 50-250 [facility] Comment on above: Performed By: #### L 503.6005, L100.0100, L501.2450, L500.4050 ####[facility] [address] [place], [address] GAP 11 Normal 5-15 [facility] Comment on above: Performed By: #### L 503.6005, L100.0100, L501.2450, L500.4050 ####[facility] [address] [place], [address] GFR/1.73 sq M.predicted among non-blacks MDRD (S/P/Bld) [Vol rate/Area] 110 mL/min/{1.73_m2} Normal >60 [facility] Comment on above: Result Comment: mL/m in/1.73m2 CKD-EPI Creatinine Equation (2020) Performed By: #### L 503.6005, L100.0100, L501.2450, L500.4050 ####[facility] [address] [place], [address] Globulin (S) [Mass/Vol] 2.6 g/dL Normal 2.2-4.2 [facility] Comment on above: Performed By: #### L 503.6005, L100.0100, L501.2450, L500.4050 ####[facility] [address] [place], [address] Glucose [Mass/Vol] 108 mg/dL High 70-99 [facility] Comment on above: Performed By: #### L 503.6005, L100.0100, L501.2450, L500.4050 ####[facility] [address] [place], [address] Potassium [Moles/Vol] 3.8 mmol/L Normal 3.3-5.1 [facility] Comment on above: Performed By: #### L 503.6005, L100.0100, L501.2450, L500.4050 ####[facility] [address] [place], [address] Sodium [Moles/Vol] 140 mmol/L Normal 133-145 [facility] Comment on above: Performed By: #### L 503.6005, L100.0100, L501.2450, L500.4050 ####[facility] [address] [place], [address] T BILI < 0.15 Normal 0.00-1.30 [facility] Comment on above: Performed By: #### L 503.6005, L100.0100, L501.2450, L500.4050 ####[facility] [address] [place], [address] T PROT 6.3 g/dL Normal 5.9-8.4 [facility] Comment on above: Performed By: #### L 503.6005, L100.0100, L501.2450, L500.4050 ####[facility] [address] [place], [address] Urea nitrogen [Mass/Vol] 12 mg/dL Normal 4-19 [facility] Comment on above: Performed By: #### L 503.6005, L100.0100, L501.2450, L500.4050 ####[facility] [address] [place], [address] Emergency Department Summary on 02-27-2025 Emergency Department Summary [facility] Medical Records Department [address] [place] [address] Emergency Department Summary 02/27/25 MR#: [id number] Acct: [id number] Name: PATRICK KOROMA Rep #: [id number] : 1980 45 From: Joseluis Maier DO PCP: ERIC Anaya Status:REG ER Location: ED HPI History of Present Illness Chief Complaint: Abd Pain PFSH PFSH Medical History (Updated 02/27/25 @ 22:[address] Joseluis Maier DO) Abdominal pain Seroma after procedure Influenza due to influenza virus, type A, human Contact with or suspected exposure to other viral communicable disease Sprain of left foot Left ankle sprain Strain of left knee Contusion of left knee Seizures Home Medications ???Medication ???Instructions ???Recorded ???Last Taken ???Type ondansetron 4 mg disintegrating 4 mg PO Q8H PRN PRN Nausea #10 tab s 02/27/25 Unknown Rx tablet oxycodone 5 mg tablet 5 mg PO Q6H PRN pain 3 days #12 Unknown Rx tabs Allergy/AdvReac Type Severity Reaction Status Date / Time adhesive tape Allergy Hives Verified 02/27/25 20:53 cephalexin monohydrate (From Allergy Anaphylaxis Verified 02/27/25 20:53 Keflex) levetiracetam (From Keppra) Allergy Hives Verified 02/27/25 20:53 morphine Allergy Shortness Verified 02/27/25 20:53 of breath naproxen (From Naprosyn) Allergy Hives Verified 02/27/25 20:53 Family History Grandmother Arthritis Mother Arthritis Seizures Father Colon cancer Diabetes Brother Heart disease Surgical History H/O hernia repair History of appendectomy Social History household members: spouse Smoking Status: Current every day smoker tobacco type: cigarettes alcohol intake: never EXAM Physical Exam Const Vital Signs: 02/27/25 20:51 Temperature 98.6 F Temperature Source Temporal Pulse Rate 100 Respiratory Rate 18 Blood Pressure 170/141 H Blood Pressure Mean 150 Pulse Ox 98 Oxygen Delivery Method Room Air [facility] [place] Medical decision making narrative: HISTORY OF PRESENT ILLNESS: Chief complaint: Abdominal pain 45-year-old male here with concern for abdominal pain. History of large hernia, appendectomy. Notes he follows a specialist at [facility]. Notes he has a surgical evaluation/ operation scheduled for March. He notes worsening pain in the abdomen. Denies vomiting. Denies fever. Last bowel movement was this morning (reported as normal). No urinary complaints. REVIEW OF SYSTEMS: Pertinent positives: Abdominal pain Pertinent negatives: As per HPI PHYSICAL EXAM: Nursing triage notes reviewed, Vital signs reviewed Constitutional: please see [facility] HENT: MMM Eyes: Pupils equal round and [...] posterior tibial) in all extremities Abdomen: Soft, diffuse TTP, slight distention but no rigidity, rebound or guarding, no obvious peritoneal signs, no palpable pulsatile abdominal masses, no auscultated abdominal bruit : No CVAT Extremities: No edema Neuro: No new focal neurological deficits, cranial nerves II through XII intact, 5/5 strength in all present extremities. Intact sensation to light touch in all present extremities, 2+ reflexes b ilateral patella tendons. Skin: No rash or lesions noted MEDICAL DECISION MAKING: Chief Complaint: please see HPI External records reviewed: Seen on 02/2025 for abdominal pain. Reviewed prior imaging studies. Reviewed imaging studies from January 07 which shows Factors affecting care: As per HPI Social determinants of health: none History obtained from others: Fianc??? Consults: none [facility] Narrative: The patient was initially hypertensive with a blood pressure 171/141 otherwise afebrile and nontoxic-appearing. Exam with slightly distended diffusely painful abdomen but no obvious perit herring signs. I considered the following differential diagnosis: AAA, small bowel obstruction, abdominal perforation, appendicitis, pancreatitis, hepatobiliary pathology (acute cholecystitis), mesenteric ischemia, pathology (ie nephrolithiasis, pyelonephritis). I obtained a broad lab and imaging workup to further elucidate etiology the patient's complaint to further determine if the patient was suffering from a life-threatening etiology. Initially treat th (more content not included)... Normal [facility] Eosinophil percentageOrdered By: Joseluis Maier on 02-27-2025 Eosinophils/100 WBC (Bld) 2.2 % 0-5 [facility] Erythrocyte distribution wid th ratioOrdered By: Joseluis Maier on 02-27-2025 Erythrocyte distribution width (RBC) [Ratio] 13.1 % 11.6-14.6 [facility] Erythrocyte distribution wid th standard deviationOrdered By: Joseluis Maier on 02-27-2025 Erythrocyte distribution width (RBC) [Ratio] 43.8 fl 35.1-43.9 [facility] Glomerular filtration rate ( GFR) estimation/1.73 sq m using serum, plasma, or whole bOrdered By: Joseluis Maier on 02-27-2025 GFR/1.73 sq M.predicted among non-blacks MDRD (S/P/Bld) [Vol rate/Area] 110 mL/min/{1.73_m2} >60 [facility] Comment on above: mL/min/1.73m2 CKD-EP I Creatinine Equation (2020) Hematocrit Auto (Bld) [Volum e fraction]Ordered By: Joseluis Maier on 02-27-2025 Hematocrit (Bld) [Volume fraction] 39.4 % Low 40-54 [facility] Hemoglobin measurementOrdere d By: Joseluis Maier on 02-27-2025 Hemoglobin (Bld) [Mass/Vol] 13.4 g/dL 13.0-16.5 [facility] Immature granulocytes/100 WB C Auto (Bld)Ordered By: Joseluis Maier on 02-27-2025 Immature granulocytes/100 WBC (Bld) 0.300 % 0.0-0.9 [facility] Comment on above: IG% - Immature Granu locytes (promyelocytes, myelocytes and metamyelocytes) > 1% indicates that a LEFT SHIFT is Present. Laboratory - Chemistry and C hemistry - challengeOrdered By: Joseluis Maier on 02-27-2025 AST [Catalytic activity/Vol] 21 U/L <38 [facility] Lactic Acidon 02-27-2025 Lactate [Moles/Vol] 1.5 mmol/L Normal 0.0-2.0 [facility] Comment on above: Order Comment: Y Performed By: #### L 503.6005, L100.0100, L501.2450, L500.4050 ####[facility] [address] [place], [address] Lactic acid measurementOrder ed By: Joseluis Maier on 02-27-2025 Lactate [Moles/Vol] 1.5 mmol/L 0.0-2.0 [facility] Lipaseon 02-27-2025 Lipase [Catalytic activity/Vol] 37 U/L Normal 13-75 [facility] Comment on above: Result Comment: Plea se note: LIPASE revised reference range effective 22. New Lipase methodology. Expected to produce lower values than the previous assay method. NEW Reference Range: 13 - 75 U/L Performed By: #### L 503.6005, L100.0100, L501.2450, L500.4050 ####[facility] [address] [place], [place], [address] Lipase measurementOrdered By : Joseluis Maier on 02-27-2025 Lipase [Catalytic activity/Vol] 37 U/L 13-75 [facility] Comment on above: Please note:LIPASE r evised reference range effective 22. New Lipase methodology. Expected to produce lower values than the previous assay method. NEW Reference Range: 13 - 75 U/L MCV (mean corpuscular volume ) determinationOrdered By: Joseluis Maier on 02-27-2025 MCV (RBC) [Entitic vol] 91.8 fL 80-94 [facility] Mean corpuscular hemoglobin (MCH) determinationOrdered By: Joseluis Maier on 02-27-2025 MCH (RBC) [Entitic mass] 31.2 pg 27.0-32.0 [facility] Mean corpuscular hemoglobin concentration (MCHC) determinationOrdered By: Joseluis Maier on 02-27-2025 MCHC (RBC) [Mass/Vol] 34.0 g/dL 32-36 [facility] Mean platelet volume determi nationOrdered By: Joseluis Maier on 02-27-2025 Platelet mean volume (Bld) [Entitic vol] 9.5 fL 6.2-12.0 [facility] Monocyte percentageOrdered B y: Joseluis Maier on 02-27-2025 Monocytes/100 WBC (Bld) 6.8 % 0-10 [facility] Neutrophil percentageOrdered By: Joseluis Maier on 02-27-2025 Neutrophils/100 WBC (Bld) 55.5 % 47-70 [facility] Nucleated red blood cell per centageOrdered By: Joseluis Maier on 02-27-2025 Nucleated RBC/100 WBC (Bld) [Ratio] 0 % 0-5 [facility] Platelet countOrdered By: Nicki Maier on 02-27-2025 Platelets (Bld) [#/Vol] 280 10*3/uL 150-450 [facility] Potassium measurement (mass/ volume)Ordered By: Joseluis Maier on 02-27-2025 Potassium (Unsp spec) [Mass/Vol] 3.8 mmol/L 3.3-5.1 [facility] RBC Auto (Bld) [#/Vol]Ordere d By: Joseluis Maier on 02-27-2025 RBC (Bld) [#/Vol] 4.29 10*6/uL Low 4.6-6.2 [facility] Serum creatinine measurement (mass/volume)Ordered By: Joseluis Maier on 02-27-2025 Creatinine [Mass/Vol] 0.82 mg/dL 0.70-1.20 [facility] Serum globulin measurementOr dered By: Joseluis Maier on 02-27-2025 Globulin (S) [Mass/Vol] 2.6 g/dL 2.2-4.2 [facility] Serum glucose measurement (m ass/volume)Ordered By: Joseluis Maier on 02-27-2025 Glucose [Mass/Vol] 108 mg/dL High 70-99 [facility] Serum or plasma alanine carrera otransferase (ALT) measurementOrdered By: Joseluis Maier on 02-27-2025 ALT [Catalytic activity/Vol] 18 U/L <47 [facility] Serum or plasma albumin za urement (mass/volume)Ordered By: Joseluis Maier on 02-27-2025 Albumin [Mass/Vol] 3.8 g/dL 3.5-5.0 [facility] Serum or plasma albumin/glob ulin mass ratioOrdered By: Joseluis Maier on 02-27-2025 Albumin/Globulin [Mass ratio] 1.5 {ratio} 0.9-2.4 [facility] Serum or plasma alkaline carmen sphatase measurementOrdered By: Joseluis Maier on 02-27-2025 ALP [Catalytic activity/Vol] 34 U/L Low 40-129 [facility] Serum or plasma calcium za urement (mass/volume)Ordered By: Joseluis Maier on 02-27-2025 Calcium [Mass/Vol] 9.3 mg/dL 7.6-11.0 [facility] Serum or plasma urea nitroge n measurement (mass/volume)Ordered By: Joseluis Maier on 02-27-2025 Urea nitrogen [Mass/Vol] 12 mg/dL 4-19 [facility] Sodium levelOrdered By: Leidy Maier on 02-27-2025 Sodium [Moles/Vol] 140 mmol/L 133-145 [facility] Total proteinOrdered By: Shamika Maier on 02-27-2025 Protein [Mass/Vol] 6.3 g/dL 5.9-8.4 [facility] White blood cell (WBC) count Ordered By: Joseluis Maier on 02-27-2025 WBC (Bld) [#/Vol] 9.9 10*3/uL 4.4-11.0 [facility] Absolute lymphocyte countOrd ered By: Guero Baker on 02-17-2025 Lymphocytes Auto (Unsp spec) [#/Vol] 3.60 10*3/uL 0.83-4.51 [facility] Absolute neutrophil countOrd ered By: Guero Baker on 02-17-2025 Neutrophils (Bld) [#/Vol] 8.0 10*3/uL High 2.0-7.7 [facility] Anion gap in Serum or Plasma Ordered By: Guero Baker on 02-17-2025 Anion gap [Moles/Vol] 12 mmol/L 5- [facility] Automated lymphocyte count a s percentage of total leukocytesOrdered By: Guero Baker on 02-17-2025 Lymphocytes/100 WBC Auto (Unsp spec) 27.8 % - [facility] BUN/creatinine ratioOrdered By: Guero Baker on 02-17-2025 Urea nitrogen/Creatinine [Mass ratio] 10.1 mg/mg - [facility] Basic Metabolic Profile (BMP )on 02-17-2025 BUN/CRE 10.1 RATIO Normal - [facility] Comment on above: Performed By: #### L 500.3400, L500.2500, L501.2450, L100.0100, L503.6005 ####[facility] [address] [place], [address] Calcium [Mass/Vol] 9.0 mg/dL Normal 7.6-11.0 [facility] Comment on above: Performed By: #### L 500.3400, L500.2500, L501.2450, L100.0100, L503.6005 ####[facility] [address] [place], [address] Chloride [Moles/Vol] 102 mmol/L Normal 98-108 [facility] Comment on above: Performed By: #### L 500.3400, L500.2500, L501.2450, L100.0100, L503.6005 ####[facility] [address] [place], [address] CO2 [Moles/Vol] 24.1 mmol/L Normal 21.0-32.0 [facility] Comment on above: Performed By: #### L 500.3400, L500.2500, L501.2450, L100.0100, L503.6005 ####[facility] [address] [place], [address] Creatinine [Mass/Vol] 0.91 mg/dL Normal 0.70-1.20 [facility] Comment on above: Performed By: #### L 500.3400, L500.2500, L501.2450, L100.0100, L503.6005 ####[facility] [address] [place], [address] ECRCL 159.78 ml/min Normal 50-250 [facility] Comment on above: Performed By: #### L 500.3400, L500.2500, L501.2450, L100.0100, L503.6005 ####[facility] [address] [place], [address] GAP 12 Normal 5-15 [facility] Comment on above: Performed By: #### L 500.3400, L500.2500, L501.2450, L100.0100, L503.6005 ####[facility] [address] [place], [address] GFR/1.73 sq M.predicted among non-blacks MDRD (S/P/Bld) [Vol rate/Area] 106 mL/min/{1.73_m2} Normal >60 [facility] Comment on above: Result Comment: mL/m in/1.73m2 CKD-EPI Creatinine Equation (2020) Performed By: #### L 500.3400, L500.2500, L501.2450, L100.0100, L503.6005 ####[facility] [address] [place], [address] Glucose [Mass/Vol] 106 mg/dL High 70-99 [facility] Comment on above: Performed By: #### L 500.3400, L500.2500, L501.2450, L100.0100, L503.6005 ####[facility] [address] [place], [address] Potassium [Moles/Vol] 3.7 mmol/L Normal 3.3-5.1 [facility] Comment on above: Performed By: #### L 500.3400, L500.2500, L501.2450, L100.0100, L503.6005 ####[facility] [address] [place], [address] Sodium [Moles/Vol] 138 mmol/L Normal 133-145 [facility] Comment on above: Performed By: #### L 500.3400, L500.2500, L501.2450, L100.0100, L503.6005 ####[facility] [address] [place], [address] Urea nitrogen [Mass/Vol] 9 mg/dL Normal 4-19 [facility] Comment on above: Performed By: #### L 500.3400, L500.2500, L501.2450, L100.0100, L503.6005 ####[facility] [address] [place], [address] Basophil percentageOrdered B y: Guero Baker on 02-17-2025 Basophils/100 WBC (Bld) 0.7 % 0-1 [facility] Bilirubin directOrdered By: Guero Baker on 02-17-2025 Bilirubin.direct [Mass/Vol] 0.12 mg/dL 0.00-0.30 [facility] Bilirubin, totalOrdered By: Guero Baker on 02-17-2025 Bilirubin [Mass/Vol] 0.35 mg/dL 0.00-1.30 [facility] CBC W/Diff, Automatedon Absolute Lymph 3.60 X10 3/uL Normal 0.83-4.51 [facility] Comment on above: Performed By: #### L 500.3400, L500.2500, L501.2450, L100.0100, L503.6005 #### [facility] [address] [place], [address] Absolute Neut 8.0 X10 3/uL High 2.0-7.7 [facility] Comment on above: Performed By: #### L 500.3400, L500.2500, L501.2450, L100.0100, L503.6005 #### [facility] [address] [place], [address] Basophils/100 WBC (Bld) 0.7 % Normal 0-1 [facility] Comment on above: Performed By: #### L 500.3400, L500.2500, L501.2450, L100.0100, L503.6005 #### [facility] [address] [place], [address] Eosinophils/100 WBC (Bld) 2.0 % Normal 0-5 [facility] Comment on above: Performed By: #### L 500.3400, L500.2500, L501.2450, L100.0100, L503.6005 #### [facility] [address] [place], [address] Erythrocyte distribution width (RBC) [Ratio] 12.8 % Normal 11.6-14.6 [facility] Comment on above: Performed By: #### L 500.3400, L500.2500, L501.2450, L100.0100, L503.6005 #### [facility] [address] [place], [address] Hematocrit (Bld) [Volume fraction] 41.2 % Normal 40-54 [facility] Comment on above: Performed By: #### L 500.3400, L500.2500, L501.2450, L100.0100, L503.6005 #### [facility] [address] [place], [address] Hemoglobin (Bld) [Mass/Vol] 14.3 g/dL Normal 13.0-16.5 [facility] Comment on above: Performed By: #### L 500.3400, L500.2500, L501.2450, L100.0100, L503.6005 #### [facility] [address] [place], [address] IG% 0.400 Normal 0.0-0.9 [facility] Comment on above: Result Comment: IG% - Immature Granulocytes (promyelocytes, myelocytes and metamyelocytes) > 1% indicates that a LEFT SHIFT is Present. Performed By: #### L 500.3400, L500.2500, L501.2450, L100.0100, L503.6005 #### [facility] [address] [place], [address] Lymphocytes/100 WBC (Bld) 27.8 % Normal 19-41 [facility] Comment on above: Performed By: #### L 500.3400, L500.2500, L501.2450, L100.0100, L503.6005 #### [facility] [address] [place], [address] MCH (RBC) [Entitic mass] 31.4 pg Normal 27.0-32.0 [facility] Comment on above: Performed By: #### L 500.3400, L500.2500, L501.2450, L100.0100, L503.6005 #### [facility] [address] [place], [address] MCHC (RBC) [Mass/Vol] 34.7 g/dL Normal 32-36 [facility] Comment on above: Performed By: #### L 500.3400, L500.2500, L501.2450, L100.0100, L503.6005 #### [facility] [address] [place], [address] MCV (RBC) [Entitic vol] 90.5 fL Normal 80-94 [facility] Comment on above: Performed By: #### L 500.3400, L500.2500, L501.2450, L100.0100, L503.6005 #### [facility] [address] [place], [address] Monocytes/100 WBC (Bld) 7.0 % Normal 0-10 [facility] Comment on above: Performed By: #### L 500.3400, L500.2500, L501.2450, L100.0100, L503.6005 #### [facility] [address] [place], [address] Neutrophils/100 WBC (Bld) 62.1 % Normal 47-70 [facility] Comment on above: Performed By: #### L 500.3400, L500.2500, L501.2450, L100.0100, L503.6005 #### [facility] [address] [place], [address] Nucleated RBC (Bld) [#/Vol] 0 10*3/uL Normal 0-5 [facility] Comment on above: Performed By: #### L 500.3400, L500.2500, L501.2450, L100.0100, L503.6005 #### [facility] [address] [place], [address] Platelet mean volume (Bld) [Entitic vol] 9.2 fL Normal 6.2-12.0 [facility] Comment on above: Performed By: #### L 500.3400, L500.2500, L501.2450, L100.0100, L503.6005 #### [facility] [address] [place], [address] Platelets (Bld) [#/Vol] 320 10*3/uL Normal 150-450 [facility] Comment on above: Performed By: #### L 500.3400, L500.2500, L501.2450, L100.0100, L503.6005 #### [facility] [address] [place], [address] RBC (Bld) [#/Vol] 4.55 10*6/uL Low 4.6-6.2 [facility] Comment on above: Performed By: #### L 500.3400, L500.2500, L501.2450, L100.0100, L503.6005 #### [facility] [address] [place], [address] RDW SD 42.5 fl Normal 35.1-43.9 [facility] Comment on above: Performed By: #### L 500.3400, L500.2500, L501.2450, L100.0100, L503.6005 #### [facility] [address] [place], [address] WBC (Bld) [#/Vol] 12.9 10*3/uL High 4.4-11.0 [facility] Comment on above: Performed By: #### L 500.3400, L500.2500, L501.2450, L100.0100, L503.6005 #### [facility] [address] [place], [address] Carbon dioxide, total [Moles /volume] in Central venous bloodOrdered By: Guero Baker on 02-17-2025 CO2 [Moles/Vol] 24.1 mmol/L 21.0-32.0 [facility] Chloride assayOrdered By: Maru Baker on 02-17-2025 Chloride [Moles/Vol] 102 mmol/L 98-108 [facility] Emergency Department Summary on 02-17-2025 Emergency Department Summary [facility] Medical Records Department [address] [place] [address] Emergency Department Summary 02/17/25 MR#: [id number] Acct: [id number] Name: PATRICK KOROMA Rep #: [id number] : 1980 45 From: Guero Baker DO PCP: ERIC Anaya Status:DEP ER Location: ED HPI History of Present Illness Chief Complaint: Abd Pain Informant: patient Narrative Narrative: Patient is a 45-year-old male with past medical history of a large ventral hernia. He states he is following with a specialist at [facility] and is scheduled to have the hernia fixed in mid March. He states there has been no fevers chills nausea vomiting diarrhea or constipation. He states has been no recent trauma or excessive activity. However this evening he developed midepigastric abdominal pain that was more intense than his baseline pain from his hernia and secondary to this comes in for evaluation. [facility] Medical History Seroma after procedure Influenza due [...] reported midepigastr (more content not included)... Normal [facility] Eosinophil percentageOrdered By: Guero Baker on 02-17-2025 Eosinophils/100 WBC (Bld) 2.0 % 0-5 [facility] Erythrocyte distribution wid th ratioOrdered By: Guero Baker on 02-17-2025 Erythrocyte distribution width (RBC) [Ratio] 12.8 % 11.6-14.6 [facility] Erythrocyte distribution wid th standard deviationOrdered By: Guero Baker on 02-17-2025 Erythrocyte distribution width (RBC) [Ratio] 42.5 fl 35.1-43.9 [facility] Glomerular filtration rate ( GFR) estimation/1.73 sq m using serum, plasma, or whole bOrdered By: Guero Baker on 02-17-2025 GFR/1.73 sq M.predicted among non-blacks MDRD (S/P/Bld) [Vol rate/Area] 106 mL/min/{1.73_m2} >60 [facility] Comment on above: mL/min/1.73m2 CKD-EP I Creatinine Equation (2020) Hematocrit Auto (Bld) [Volum e fraction]Ordered By: Guero Baker on 02-17-2025 Hematocrit (Bld) [Volume fraction] 41.2 % 40-54 [facility] Hemoglobin measurementOrdere d By: Guero Baker on 02-17-2025 Hemoglobin (Bld) [Mass/Vol] 14.3 g/dL 13.0-16.5 [facility] Immature granulocytes/100 WB C Auto (Bld)Ordered By: Guero Baker on 02-17-2025 Immature granulocytes/100 WBC (Bld) 0.400 % 0.0-0.9 [facility] Comment on above: IG% - Immature Granu locytes (promyelocytes, myelocytes and metamyelocytes) > 1% indicates that a LEFT SHIFT is Present. Laboratory - Chemistry and C hemistry - challengeOrdered By: Guero Baker on 02-17-2025 AST [Catalytic activity/Vol] 24 U/L <38 [facility] Lactic Acidon 02-17-2025 Lactate [Moles/Vol] 1.3 mmol/L Normal 0.0-2.0 [facility] Comment on above: Order Comment: Y Performed By: #### L 500.3400, L500.2500, L501.2450, L100.0100, L503.6005 #### [facility] Laboratory [address] [place], [place], [id number] Lactic acid measurementOrder ed By: Guero Baker on 02-17-2025 Lactate [Moles/Vol] 1.3 mmol/L 0.0-2.0 [facility] Lipaseon 02-17-2025 Lipase [Catalytic activity/Vol] 50 U/L Normal 13-75 [facility] Comment on above: Result Comment: Scout kline note: LIPASE revised reference range effective 22. New Lipase methodology. Expected to produce lower values than the previous assay method. NEW Reference Range: 13 - 75 U/L Performed By: #### L 500.3400, L500.2500, L501.2450, L100.0100, L503.6005 ####[facility] [address] [place], [place], [id number] Lipase measurementOrdered By : Guero Baker on 02-17-2025 Lipase [Catalytic activity/Vol] 50 U/L 13-75 [facility] Comment on above: Please note:LIPASE r evised reference range effective 22. New Lipase methodology. Expected to produce lower values than the previous assay method. NEW Reference Range: 13 - 75 U/L Liver Profileon 02-17-2025 Albumin [Mass/Vol] 4.0 g/dL Normal 3.5-5.0 [facility] Comment on above: Performed By: #### L 500.3400, L500.2500, L501.2450, L100.0100, L503.6005 ####[facility] [address] [place], [place], [id number] ALK PHOS 38 U/L Low 40-129 [facility] Comment on above: Performed By: #### L 500.3400, L500.2500, L501.2450, L100.0100, L503.6005 ####[facility] [address] [place], [address] ALT [Catalytic activity/Vol] 19 U/L Normal <=46 [facility] Comment on above: Performed By: #### L 500.3400, L500.2500, L501.2450, L100.0100, L503.6005 ####[facility] [address] [place], [address] AST [Catalytic activity/Vol] 24 U/L Normal <=37 [facility] Comment on above: Performed By: #### L 500.3400, L500.2500, L501.2450, L100.0100, L503.6005 ####[facility] [address] [place], [address] Bilirubin [Mass/Vol] 0.35 mg/dL Normal 0.00-1.30 [facility] Comment on above: Performed By: #### L 500.3400, L500.2500, L501.2450, L100.0100, L503.6005 ####[facility] [address] [place], [address] Bilirubin.direct [Mass/Vol] 0.12 mg/dL Normal 0.00-0.30 [facility] Comment on above: Performed By: #### L 500.3400, L500.2500, L501.2450, L100.0100, L503.6005 ####[facility] [address] [place], [address] Globulin (S) [Mass/Vol] 3.0 g/dL Normal 2.2-4.2 [facility] Comment on above: Performed By: #### L 500.3400, L500.2500, L501.2450, L100.0100, L503.6005 ####[facility] [address] [place], [place], [address] T PROT 7.0 g/dL Normal 5.9-8.4 [facility] Comment on above: Performed By: #### L 500.3400, L500.2500, L501.2450, L100.0100, L503.6005 ####[facility] [address] [place], [address] MCV (mean corpuscular volume ) determinationOrdered By: Guero Baker on 02-17-2025 MCV (RBC) [Entitic vol] 90.5 fL 80-94 [facility] Mean corpuscular hemoglobin (MCH) determinationOrdered By: Guero Baker on 02-17-2025 MCH (RBC) [Entitic mass] 31.4 pg 27.0-32.0 [facility] Mean corpuscular hemoglobin concentration (MCHC) determinationOrdered By: Guero Baker on 02-17-2025 MCHC (RBC) [Mass/Vol] 34.7 g/dL 32-36 [facility] Mean platelet volume determi nationOrdered By: Guero Baker on 02-17-2025 Platelet mean volume (Bld) [Entitic vol] 9.2 fL 6.2-12.0 [facility] Monocyte percentageOrdered B y: Guero Baker on 02-17-2025 Monocytes/100 WBC (Bld) 7.0 % 0-10 [facility] Neutrophil percentageOrdered By: Guero Baker on 02-17-2025 Neutrophils/100 WBC (Bld) 62.1 % 47-70 [facility] Nucleated red blood cell per centageOrdered By: Guero Baker on 02-17-2025 Nucleated RBC/100 WBC (Bld) [Ratio] 0 % 0-5 [facility] Platelet countOrdered By: Maru Baker on 02-17-2025 Platelets (Bld) [#/Vol] 320 10*3/uL 150-450 [facility] Potassium measurement (mass/ volume)Ordered By: Guero Baker on 02-17-2025 Potassium (Unsp spec) [Mass/Vol] 3.7 mmol/L 3.3-5.1 [facility] RBC Auto (Bld) [#/Vol]Ordere d By: Guero Baker on 02-17-2025 RBC (Bld) [#/Vol] 4.55 10*6/uL Low 4.6-6.2 [facility] Serum creatinine measurement (mass/volume)Ordered By: Guero Baker on 02-17-2025 Creatinine [Mass/Vol] 0.91 mg/dL 0.70-1.20 [facility] Serum globulin measurementOr dered By: Guero Baker on 02-17-2025 Globulin (S) [Mass/Vol] 3.0 g/dL 2.2-4.2 [facility] Serum glucose measurement (m ass/volume)Ordered By: Guero Baker on 02-17-2025 Glucose [Mass/Vol] 106 mg/dL High 70-99 [facility] Serum or plasma alanine carrera otransferase (ALT) measurementOrdered By: Guero Baker on 02-17-2025 ALT [Catalytic activity/Vol] 19 U/L <47 [facility] Serum or plasma albumin za urement (mass/volume)Ordered By: Guero Bkaer on 02-17-2025 Albumin [Mass/Vol] 4.0 g/dL 3.5-5.0 [facility] Serum or plasma alkaline carmen sphatase measurementOrdered By: Guero Baker on 02-17-2025 ALP [Catalytic activity/Vol] 38 U/L Low 40-129 [facility] Serum or plasma calcium za urement (mass/volume)Ordered By: Guero Baker on 02-17-2025 Calcium [Mass/Vol] 9.0 mg/dL 7.6-11.0 [facility] Serum or plasma urea nitroge n measurement (mass/volume)Ordered By: Guero Baker on 02-17-2025 Urea nitrogen [Mass/Vol] 9 mg/dL 4-19 [facility] Sodium levelOrdered By: Scott Baker on 02-17-2025 Sodium [Moles/Vol] 138 mmol/L 133-145 [facility] Total proteinOrdered By: Yovani Baker on 02-17-2025 Protein [Mass/Vol] 7.0 g/dL 5.9-8.4 [facility] White blood cell (WBC) count Ordered By: Guero Baker on 02-17-2025 WBC (Bld) [#/Vol] 12.9 10*3/uL High 4.4-11.0 [facility] CBC W/Diff, Automatedon 01-14 PLT EST ADEQUATE Normal ADEQ [facility] Comment on above: Performed By: #### L 500.2500, L500.3400, L100.0100, L501.2450, L503.6005 ####[facility] [address] [place], [address] RED CELL MORPH NORM C+C Normal NORM C C [facility] Comment on above: Performed By: #### L 500.2500, L500.3400, L100.0100, L501.2450, L503.6005 ####[facility] [address] [place], [address] SMEAR COMMENT SCANNED Normal [facility] Comment on above: Performed By: #### L 500.2500, L500.3400, L100.0100, L501.2450, L503.6005 ####[facility] [address] 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 He denies any fevers or chills or trauma. However he has been having increasing pain along the mid abdomen radiating towards the left that is worse with motion. He states it is not being controlled with wfnw-tpu-smuvkyg medications and therefore comes in for evaluation. The patient states that there has been no fevers or chills diarrhea constipation dysuria. He denies any nausea or vomiting either. He denies any known sick contacts [facility] Medical History Seroma after procedure Influenza due [...] peritoneal sign (more content not included)... Normal [facility] Absolute lymphocyte countOrd ered By: Guero Baker on 01-25-2025 Lymphocytes Auto (Unsp spec) [#/Vol] 4.28 10*3/uL 0.83-4.51 [facility] Absolute neutrophil countOrd ered By: Guero Baker on 01-25-2025 Neutrophils (Bld) [#/Vol] 6.3 10*3/uL 2.0-7.7 [facility] Anion gap in Serum or Plasma Ordered By: Guero Baker on 01-25-2025 Anion gap [Moles/Vol] 12 mmol/L - [facility] Automated lymphocyte count a s percentage of total leukocytesOrdered By: Guero Baker on 01-25-2025 Lymphocytes/100 WBC Auto (Unsp spec) 36.6 % [facility] BUN/creatinine ratioOrdered By: Guero Baker on 01-25-2025 Urea nitrogen/Creatinine [Mass ratio] 11.4 mg/mg 04-04 [facility] Basic Metabolic Profile (BMP )on 01-25-2025 BUN/CRE 11.4 RATIO Normal 04-04 [facility] Comment on above: Performed By: #### L 500.2500, L500.3400, L100.0100, L501.2450, L503.6005 ####[facility] [address] [place], [address] Calcium [Mass/Vol] 9.6 mg/dL Normal 7.6-11.0 [facility] Comment on above: Performed By: #### L 500.2500, L500.3400, L100.0100, L501.2450, L503.6005 ####[facility] [address] [place], [address] Chloride [Moles/Vol] 104 mmol/L Normal 98-108 [facility] Comment on above: Performed By: #### L 500.2500, L500.3400, L100.0100, L501.2450, L503.6005 ####[facility] [address] [place], [address] CO2 [Moles/Vol] 22.2 mmol/L Normal 21.0-32.0 [facility] Comment on above: Performed By: #### L 500.2500, L500.3400, L100.0100, L501.2450, L503.6005 ####[facility] [address] [place], [address] Creatinine [Mass/Vol] 0.88 mg/dL Normal 0.70-1.20 [facility] Comment on above: Performed By: #### L 500.2500, L500.3400, L100.0100, L501.2450, L503.6005 ####[facility] [address] [place], [address] ECRCL 165.23 ml/min Normal 50-250 [facility] Comment on above: Performed By: #### L 500.2500, L500.3400, L100.0100, L501.2450, L503.6005 ####[facility] [address] [place], [address] GAP 12 Normal 5-15 [facility] Comment on above: Performed By: #### L 500.2500, L500.3400, L100.0100, L501.2450, L503.6005 ####[facility] [address] [place], [address] GFR/1.73 sq M.predicted among non-blacks MDRD (S/P/Bld) [Vol rate/Area] 107 mL/min/{1.73_m2} Normal >60 [facility] Comment on above: Result Comment: mL/m in/1.73m2 CKD-EPI Creatinine Equation (2020) Performed By: #### L 500.2500, L500.3400, L100.0100, L501.2450, L503.6005 ####[facility] [address] [place], [address] Glucose [Mass/Vol] 90 mg/dL Normal 70-99 [facility] Comment on above: Performed By: #### L 500.2500, L500.3400, L100.0100, L501.2450, L503.6005 ####[facility] [address] [place], [address] Potassium [Moles/Vol] 4.2 mmol/L Normal 3.3-5.1 [facility] Comment on above: Performed By: #### L 500.2500, L500.3400, L100.0100, L501.2450, L503.6005 ####[facility] [address] [place], [address] Sodium [Moles/Vol] 139 mmol/L Normal 133-145 [facility] Comment on above: Performed By: #### L 500.2500, L500.3400, L100.0100, L501.2450, L503.6005 ####[facility] [address] [place], [address] Urea nitrogen [Mass/Vol] 10 mg/dL Normal 4-19 [facility] Comment on above: Performed By: #### L 500.2500, L500.3400, L100.0100, L501.2450, L503.6005 ####[facility] [address] [place], [address] Basophil percentageOrdered B y: Guero Baker on 01-25-2025 Basophils/100 WBC (Bld) 0.9 % 0-1 [facility] Bilirubin directOrdered By: Guero Baker on 01-25-2025 Bilirubin.direct [Mass/Vol] mg/dL 0.00-0.30 [facility] Bilirubin, totalOrdered By: Guero Baker on 01-25-2025 Bilirubin [Mass/Vol] 0.17 mg/dL 0.00-1.30 [facility] Blood manual differential co mment interpretation (narrative result)Ordered By: Guero Baker on 01-25-2025 Manual differential comment Alonso (Bld) [Interp] SCANNED [facility] Carbon dioxide, total [Moles /volume] in Central venous bloodOrdered By: Guero Baker on 01-25-2025 CO2 [Moles/Vol] 22.2 mmol/L 21.0-32.0 [facility] Chloride assayOrdered By: Maru Baker on 01-25-2025 Chloride [Moles/Vol] 104 mmol/L 98-108 [facility] Eosinophil percentageOrdered By: Guero Baker on 01-25-2025 Eosinophils/100 WBC (Bld) 2.8 % 0-5 [facility] Erythrocyte distribution wid th ratioOrdered By: Guero Baker on 01-25-2025 Erythrocyte distribution width (RBC) [Ratio] 13.2 % 11.6-14.6 [facility] Erythrocyte distribution wid th standard deviationOrdered By: Guero Baker on 01-25-2025 Erythrocyte distribution width (RBC) [Ratio] 43.5 fl 35.1-43.9 [facility] Erythrocyte morphology asses smentOrdered By: Guero Baker on 01-25-2025 RBC morphology finding Nom (Bld) NORM C+C NORMAL NORM C&C [facility] Glomerular filtration rate ( GFR) estimation/1.73 sq m using serum, plasma, or whole bOrdered By: Guero Baker on 01-25-2025 GFR/1.73 sq M.predicted among non-blacks MDRD (S/P/Bld) [Vol rate/Area] 107 mL/min/{1.73_m2} >60 [facility] Comment on above: mL/min/1.73m2 CKD-EP I Creatinine Equation (2020) Hematocrit Auto (Bld) [Volum e fraction]Ordered By: Guero Baker on 01-25-2025 Hematocrit (Bld) [Volume fraction] 44.9 % 40-54 [facility] Hemoglobin measurementOrdere d By: Guero Baker on 01-25-2025 Hemoglobin (Bld) [Mass/Vol] 15.4 g/dL 13.0-16.5 [facility] Immature granulocytes/100 WB C Auto (Bld)Ordered By: Guero Baker on 01-25-2025 Immature granulocytes/100 WBC (Bld) 0.300 % 0.0-0.9 [facility] Comment on above: IG% - Immature Granu locytes (promyelocytes, myelocytes and metamyelocytes) > 1% indicates that a LEFT SHIFT is Present. Laboratory - Chemistry and C hemistry - challengeOrdered By: Guero Baker on 01-25-2025 AST [Catalytic activity/Vol] 18 U/L <38 [facility] Lactic Acidon 01-25-2025 Lactate [Moles/Vol] 1.1 mmol/L Normal 0.0-2.0 [facility] Comment on above: Order Comment: Y Performed By: #### L 500.2500, L500.3400, L100.0100, L501.2450, L503.6005 ####[facility] [address] [place], [place], [id number] Lactic acid measurementOrder ed By: Guero Baker on 01-25-2025 Lactate [Moles/Vol] 1.1 mmol/L 0.0-2.0 [facility] Lipaseon 01-25-2025 Lipase [Catalytic activity/Vol] 31 U/L Normal 13-75 [facility] Comment on above: Result Comment: Scout kline note: LIPASE revised reference range effective 22. New Lipase methodology. Expected to produce lower values than the previous assay method. NEW Reference Range: 13 - 75 U/L Performed By: #### L 500.2500, L500.3400, L100.0100, L501.2450, L503.6005 ####[facility] [address] [place], [place], [id number] Lipase measurementOrdered By : Guero Baker on 01-25-2025 Lipase [Catalytic activity/Vol] 31 U/L 13-75 [facility] Comment on above: Please note:LIPASE r evised reference range effective 22. New Lipase methodology. Expected to produce lower values than the previous assay method. NEW Reference Range: 13 - 75 U/L Liver Profileon 01-25-2025 Albumin [Mass/Vol] 4.3 g/dL Normal 3.5-5.0 [facility] Comment on above: Performed By: #### L 500.2500, L500.3400, L100.0100, L501.2450, L503.6005 ####[facility] [address] [place], [address] ALK PHOS 40 U/L Normal 40-129 [facility] Comment on above: Performed By: #### L 500.2500, L500.3400, L100.0100, L501.2450, L503.6005 ####[facility] [address] [place], [address] ALT [Catalytic activity/Vol] 14 U/L Normal <=46 [facility] Comment on above: Performed By: #### L 500.2500, L500.3400, L100.0100, L501.2450, L503.6005 ####[facility] [address] [place], [address] AST [Catalytic activity/Vol] 18 U/L Normal <=37 [facility] Comment on above: Performed By: #### L 500.2500, L500.3400, L100.0100, L501.2450, L503.6005 ####[facility] [address] [place], [address] Bilirubin [Mass/Vol] 0.17 mg/dL Normal 0.00-1.30 [facility] Comment on above: Performed By: #### L 500.2500, L500.3400, L100.0100, L501.2450, L503.6005 ####[facility] [address] [place], [address] D BILI < 0.08 Normal 0.00-0.30 [facility] Comment on above: Performed By: #### L 500.2500, L500.3400, L100.0100, L501.2450, L503.6005 ####[facility] [address] [place], [address] Globulin (S) [Mass/Vol] 3.1 g/dL Normal 2.2-4.2 [facility] Comment on above: Performed By: #### L 500.2500, L500.3400, L100.0100, L501.2450, L503.6005 ####[facility] [address] [place], [address] T PROT 7.3 g/dL Normal 5.9-8.4 [facility] Comment on above: Performed By: #### L 500.2500, L500.3400, L100.0100, L501.2450, L503.6005 ####[facility] [address] [place], [address] MCV (mean corpuscular volume ) determinationOrdered By: Guero Baker on 01-25-2025 MCV (RBC) [Entitic vol] 91.1 fL 80-94 [facility] Mean corpuscular hemoglobin (MCH) determinationOrdered By: Guero Baker on 01-25-2025 MCH (RBC) [Entitic mass] 31.2 pg 27.0-32.0 [facility] Mean corpuscular hemoglobin concentration (MCHC) determinationOrdered By: Guero Baker on 01-25-2025 MCHC (RBC) [Mass/Vol] 34.3 g/dL 32-36 [facility] Mean platelet volume determi nationOrdered By: Guero Baker on 01-25-2025 Platelet mean volume (Bld) [Entitic vol] 9.8 fL 6.2-12.0 [facility] Monocyte percentageOrdered B y: Guero Baker on 01-25-2025 Monocytes/100 WBC (Bld) 5.1 % 0-10 [facility] Neutrophil percentageOrdered By: Guero Baker on 01-25-2025 Neutrophils/100 WBC (Bld) 54.3 % 47-70 [facility] Nucleated red blood cell per centageOrdered By: Guero Baker on 01-25-2025 Nucleated RBC/100 WBC (Bld) [Ratio] 0 % 0-5 [facility] Platelet countOrdered By: Maru Baker on 01-25-2025 Platelets (Bld) [#/Vol] 333 10*3/uL 150-450 [facility] Platelet estimateOrdered By: Guero Baker on 01-25-2025 Platelets LM Ql (Bld) ADEQUATE ADEQ [facility] Potassium measurement (mass/ volume)Ordered By: Guero Baker on 01-25-2025 Potassium (Unsp spec) [Mass/Vol] 4.2 mmol/L 3.3-5.1 [facility] RBC Auto (Bld) [#/Vol]Ordere d By: Guero Baker on 01-25-2025 RBC (Bld) [#/Vol] 4.93 10*6/uL 4.6-6.2 [facility] Serum creatinine measurement (mass/volume)Ordered By: Guero Baker on 01-25-2025 Creatinine [Mass/Vol] 0.88 mg/dL 0.70-1.20 [facility] Serum globulin measurementOr dered By: Guero Baker on 01-25-2025 Globulin (S) [Mass/Vol] 3.1 g/dL 2.2-4.2 [facility] Serum glucose measurement (m ass/volume)Ordered By: Guero Baker on 01-25-2025 Glucose [Mass/Vol] 90 mg/dL 70-99 [facility] Serum or plasma alanine carrera otransferase (ALT) measurementOrdered By: Guero Baker on 01-25-2025 ALT [Catalytic activity/Vol] 14 U/L <47 [facility] Serum or plasma albumin za urement (mass/volume)Ordered By: Guero Baker on 01-25-2025 Albumin [Mass/Vol] 4.3 g/dL 3.5-5.0 [facility] Serum or plasma alkaline carmen sphatase measurementOrdered By: Guero Baker on 01-25-2025 ALP [Catalytic activity/Vol] 40 U/L 40-129 [facility] Serum or plasma calcium za urement (mass/volume)Ordered By: Guero Baker on 01-25-2025 Calcium [Mass/Vol] 9.6 mg/dL 7.6-11.0 [facility] Serum or plasma urea nitroge n measurement (mass/volume)Ordered By: Guero Baker on 01-25-2025 Urea nitrogen [Mass/Vol] 10 mg/dL 4-19 [facility] Sodium levelOrdered By: Scott bass Andjosette on 01-25-2025 Sodium [Moles/Vol] 139 mmol/L 133-145 [facility] Total proteinOrdered By: Yovani Baker on 01-25-2025 Protein [Mass/Vol] 7.3 g/dL 5.9-8.4 [facility] White blood cell (WBC) count Ordered By: Guero Baker on 01-25-2025 WBC (Bld) [#/Vol] 11.7 10*3/uL High 4.4-11.0 [facility] Abdomen/Pelvis W IV Cont ONL Yon 12-29-2024 Abdomen/Pelvis W IV Cont ONLY [facility] Imaging Services [address] [place], [place] [id number] Abdomen/Pelvis W IV Cont ONLY MR#: [id number] Acct: [id number] Name: PATRICK KOROMA Rep #: [id number] : 1980 M 44 From: Colt Cruz MD PCP: ERIC Anaya Status: [facility] ER Study: Abdomen/Pelvis W IV Cont ONLY Date of Exam: Exam# [id number] Ordering Dr: Justin Cordero MD PROCEDURE: ABDOMEN/PELVIS [...] containing omental fat, without bowel. Reading Location: [place] [address] CC: ERIC Starkey; Dr. 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 Normal [facility] Absolute lymphocyte countOrd ered By: Justin Cordero on 12-29-2024 Lymphocytes Auto (Unsp spec) [#/Vol] 3.55 10*3/uL 0.83-4.51 [facility] Absolute neutrophil countOrd ered By: Justin Cordero on 12-29-2024 Neutrophils (Bld) [#/Vol] 7.2 10*3/uL 2.0-7.7 [facility] Anion gap in Serum or Plasma Ordered By: Justin Cordero on 12-29-2024 Anion gap [Moles/Vol] 12 mmol/L 5-15 [facility] Automated lymphocyte count a s percentage of total leukocytesOrdered By: Justin Cordero on 12-29-2024 Lymphocytes/100 WBC Auto (Unsp spec) 30.4 % 19-41 [facility] BUN/creatinine ratioOrdered By: Justin Cordero on 12-29-2024 Urea nitrogen/Creatinine [Mass ratio] 7.7 mg/mg Low 10-20 [facility] Basophil percentageOrdered B y: Justin Cordero on 12-29-2024 Basophils/100 WBC (Bld) 0.6 % 0-1 [facility] Bilirubin, totalOrdered By: Justin Cordero on 12-29-2024 Bilirubin [Mass/Vol] 0.19 mg/dL 0.00-1.30 [facility] CBC W/Diff, Automatedon 12-14 Absolute Lymph 3.55 X10 3/uL Normal 0.83-4.51 [facility] Comment on above: Performed By: #### L 500.4050, L100.0100, L501.2450 ####[facility] [address] [place], [place], [address] Absolute Neut 7.2 X10 3/uL Normal 2.0-7.7 [facility] Comment on above: Performed By: #### L 500.4050, L100.0100, L501.2450 ####[facility] [address] [place], [address] Basophils/100 WBC (Bld) 0.6 % Normal 0-1 [facility] Comment on above: Performed By: #### L 500.4050, L100.0100, L501.2450 ####[facility] [address] [place], [address] Eosinophils/100 WBC (Bld) 1.7 % Normal 0-5 [facility] Comment on above: Performed By: #### L 500.4050, L100.0100, L501.2450 ####[facility] [address] [place], [address] Erythrocyte distribution width (RBC) [Ratio] 12.4 % Normal 11.6-14.6 [facility] Comment on above: Performed By: #### L 500.4050, L100.0100, L501.2450 ####[facility] [address] [place], [address] Hematocrit (Bld) [Volume fraction] 43.2 % Normal 40-54 [facility] Comment on above: Performed By: #### L 500.4050, L100.0100, L501.2450 ####[facility] [address] [place], [address] Hemoglobin (Bld) [Mass/Vol] 15.0 g/dL Normal 13.0-16.5 [facility] Comment on above: Performed By: #### L 500.4050, L100.0100, L501.2450 ####[facility] [address] [place], [address] IG% 0.300 Normal 0.0-0.9 [facility] Comment on above: Result Comment: IG% - Immature Granulocytes (promyelocytes, myelocytes and metamyelocytes) > 1% indicates that a LEFT SHIFT is Present. Performed By: #### L 500.4050, L100.0100, L501.2450 ####[facility] [address] [place], [address] Lymphocytes/100 WBC (Bld) 30.4 % Normal 19-41 [facility] Comment on above: Performed By: #### L 500.4050, L100.0100, L501.2450 ####[facility] [address] [place], [address] MCH (RBC) [Entitic mass] 30.7 pg Normal 27.0-32.0 [facility] Comment on above: Performed By: #### L 500.4050, L100.0100, L501.2450 ####[facility] [address] [place], [address] MCHC (RBC) [Mass/Vol] 34.7 g/dL Normal 32-36 [facility] Comment on above: Performed By: #### L 500.4050, L100.0100, L501.2450 ####[facility] [address] [place], [address] MCV (RBC) [Entitic vol] 88.5 fL Normal 80-94 [facility] Comment on above: Performed By: #### L 500.4050, L100.0100, L501.2450 ####[facility] [address] [place], [address] Monocytes/100 WBC (Bld) 5.1 % Normal 0-10 [facility] Comment on above: Performed By: #### L 500.4050, L100.0100, L501.2450 ####[facility] [address] [place], [address] Neutrophils/100 WBC (Bld) 61.9 % Normal 47-70 [facility] Comment on above: Performed By: #### L 500.4050, L100.0100, L501.2450 ####[facility] [address] [place], [address] Nucleated RBC (Bld) [#/Vol] 0 10*3/uL Normal 0-5 [facility] Comment on above: Performed By: #### L 500.4050, L100.0100, L501.2450 ####[facility] [address] [place], [address] Platelet mean volume (Bld) [Entitic vol] 9.5 fL Normal 6.2-12.0 [facility] Comment on above: Performed By: #### L 500.4050, L100.0100, L501.2450 ####[facility] [address] [place], [address] Platelets (Bld) [#/Vol] 295 10*3/uL Normal 150-450 [facility] Comment on above: Performed By: #### L 500.4050, L100.0100, L501.2450 ####[facility] [address] [place], [address] RBC (Bld) [#/Vol] 4.88 10*6/uL Normal 4.6-6.2 [facility] Comment on above: Performed By: #### L 500.4050, L100.0100, L501.2450 ####[facility] [address] [place], [address] RDW SD 40.5 fl Normal 35.1-43.9 [facility] Comment on above: Performed By: #### L 500.4050, L100.0100, L501.2450 ####[facility] [address] [place], [address] WBC (Bld) [#/Vol] 11.7 10*3/uL High 4.4-11.0 [facility] Comment on above: Performed By: #### L 500.4050, L100.0100, L501.2450 ####[facility] [address] [place], [address] Carbon dioxide, total [Moles /volume] in Central venous bloodOrdered By: Justin Cordero on 12-29-2024 CO2 [Moles/Vol] 21.1 mmol/L 21.0-32.0 [facility] Chloride assayOrdered By: Germán Cordero on 12-29-2024 Chloride [Moles/Vol] 103 mmol/L 98-108 [facility] Comprehensive Metabolic Prof ilon 12-29-2024 Albumin [Mass/Vol] 3.8 g/dL Normal 3.5-5.0 [facility] Comment on above: Performed By: #### L 500.4050, L100.0100, L501.2450 ####[facility] [address] [place], [address] ALK PHOS 39 U/L Low 40-129 [facility] Comment on above: Performed By: #### L 500.4050, L100.0100, L501.2450 ####[facility] [address] [place], [address] ALT [Catalytic activity/Vol] 10 U/L Normal <=46 [facility] Comment on above: Performed By: #### L 500.4050, L100.0100, L501.2450 ####[facility] [address] [place], [address] AST [Catalytic activity/Vol] 21 U/L Normal <=37 [facility] Comment on above: Result Comment: Hemo lysis present, Results??could be affected. ?? Performed By: #### L 500.4050, L100.0100, L501.2450 ####[facility] [address] [place], [address] Bilirubin [Mass/Vol] 0.19 mg/dL Normal 0.00-1.30 [facility] Comment on above: Performed By: #### L 500.4050, L100.0100, L501.2450 ####[facility] [address] [place], [address] BUN/CRE 7.7 RATIO Low 10-20 [facility] Comment on above: Performed By: #### L 500.4050, L100.0100, L501.2450 ####[facility] [address] [place], [address] Calcium [Mass/Vol] 9.1 mg/dL Normal 7.6-11.0 [facility] Comment on above: Performed By: #### L 500.4050, L100.0100, L501.2450 ####[facility] [address] [place], [address] Chloride [Moles/Vol] 103 mmol/L Normal 98-108 [facility] Comment on above: Performed By: #### L 500.4050, L100.0100, L501.2450 ####[facility] [address] [place], [address] CO2 [Moles/Vol] 21.1 mmol/L Normal 21.0-32.0 [facility] Comment on above: Performed By: #### L 500.4050, L100.0100, L501.2450 ####[facility] [address] [place], [address] Creatinine [Mass/Vol] 0.79 mg/dL Normal 0.70-1.20 [facility] Comment on above: Performed By: #### L 500.4050, L100.0100, L501.2450 ####[facility] [address] [place], [address] GAP 12 Normal 5-15 [facility] Comment on above: Performed By: #### L 500.4050, L100.0100, L501.2450 ####[facility] [address] [place], [address] GFR/1.73 sq M.predicted among non-blacks MDRD (S/P/Bld) [Vol rate/Area] 112 mL/min/{1.73_m2} Normal >60 [facility] Comment on above: Result Comment: mL/m in/1.73m2 CKD-EPI Creatinine Equation (2020) Performed By: #### L 500.4050, L100.0100, L501.2450 ####[facility] [address] [place], [address] Glucose [Mass/Vol] 100 mg/dL High 70-99 [facility] Comment on above: Performed By: #### L 500.4050, L100.0100, L501.2450 ####[facility] [address] [place], [address] Potassium [Moles/Vol] 4.3 mmol/L Normal 3.3-5.1 [facility] Comment on above: Result Comment: Hemo lysis present, Results??could be affected. ?? Performed By: #### L 500.4050, L100.0100, L501.2450 ####[facility] [address] [place], [address] Sodium [Moles/Vol] 136 mmol/L Normal 133-145 [facility] Comment on above: Performed By: #### L 500.4050, L100.0100, L501.2450 ####[facility] [address] [place], [address] T PROT 6.8 g/dL Normal 5.9-8.4 [facility] Comment on above: Performed By: #### L 500.4050, L100.0100, L501.2450 ####[facility] [address] [place], [address] Urea nitrogen [Mass/Vol] 6 mg/dL Normal 4-19 [facility] Comment on above: Performed By: #### L 500.4050, L100.0100, L501.2450 ####[facility] [address] [place], [address] Emergency Department Summary on 12-29-2024 Emergency Department Summary [facility] Medical Records Department [address] [place] [address] Emergency Department Summary 12/29/24 MR#: [id number] Acct: [id number] Name: PATRICK KOROMA Rep #: [id number] : 1980 44 From: Justin Cordero MD [...] did his other hernia repair surgeries in [place] he was told by him he could do it. He referred him to a surgeon in [place] at and they also told him they were not able to help him. Patient denies any fever. No dysuria. Denies any nausea, vomiting or diarrhea. No back pain. Prior similar symptoms: Yes Recent Illness/Hospitalizati on: No PFSH PFSH Medical History Seroma after procedure [...] 86 R (more content not included)... Normal [facility] Eosinophil percentageOrdered By: Justin Cordero on 12-29-2024 Eosinophils/100 WBC (Bld) 1.7 % 0-5 [facility] Erythrocyte distribution wid th ratioOrdered By: Justin Cordero on 12-29-2024 Erythrocyte distribution width (RBC) [Ratio] 12.4 % 11.6-14.6 [facility] Erythrocyte distribution wid th standard deviationOrdered By: Justin Cordero on 12-29-2024 Erythrocyte distribution width (RBC) [Ratio] 40.5 fl 35.1-43.9 [facility] Glomerular filtration rate ( GFR) estimation/1.73 sq m using serum, plasma, or whole bOrdered By: Justin Cordero on 12-29-2024 GFR/1.73 sq M.predicted among non-blacks MDRD (S/P/Bld) [Vol rate/Area] 112 mL/min/{1.73_m2} >60 [facility] Comment on above: mL/min/1.73m2 CKD-EP I Creatinine Equation (2020) Hematocrit Auto (Bld) [Volum e fraction]Ordered By: Justin Cordero on 12-29-2024 Hematocrit (Bld) [Volume fraction] 43.2 % 40-54 [facility] Hemoglobin measurementOrdere d By: Justin Cordero on 12-29-2024 Hemoglobin (Bld) [Mass/Vol] 15.0 g/dL 13.0-16.5 [facility] Immature granulocytes/100 WB C Auto (Bld)Ordered By: Justin Cordero on 12-29-2024 Immature granulocytes/100 WBC (Bld) 0.300 % 0.0-0.9 [facility] Comment on above: IG% - Immature Granu locytes (promyelocytes, myelocytes and metamyelocytes) > 1% indicates that a LEFT SHIFT is Present. Laboratory - Chemistry and C hemistry - challengeOrdered By: Justin Cordero on 12-29-2024 AST [Catalytic activity/Vol] 21 U/L <38 [facility] Comment on above: Hemolysis present, R esults could be affected. Lipaseon 12-29-2024 Lipase [Catalytic activity/Vol] 28 U/L Normal 13-75 [facility] Comment on above: Result Comment: Scout kline note: LIPASE revised reference range effective 22. New Lipase methodology. Expected to produce lower values than the previous assay method. NEW Reference Range: 13 - 75 U/L Performed By: #### L 500.4050, L100.0100, L501.2450 ####[facility] [address], [place], [id number] Lipase measurementOrdered By : Justin Cordero on 12-29-2024 Lipase [Catalytic activity/Vol] 28 U/L 13-75 [facility] Comment on above: Please note:LIPASE r evised reference range effective 22. New Lipase methodology. Expected to produce lower values than the previous assay method. NEW Reference Range: 13 - 75 U/L MCV (mean corpuscular volume ) determinationOrdered By: Justin Cordero on 12-29-2024 MCV (RBC) [Entitic vol] 88.5 fL 80-94 [facility] Mean corpuscular hemoglobin (MCH) determinationOrdered By: Justin Cordero on 12-29-2024 MCH (RBC) [Entitic mass] 30.7 pg 27.0-32.0 [facility] Mean corpuscular hemoglobin concentration (MCHC) determinationOrdered By: Justin Cordero on 12-29-2024 MCHC (RBC) [Mass/Vol] 34.7 g/dL 32-36 [facility] Mean platelet volume determi nationOrdered By: Justin Cordero on 12-29-2024 Platelet mean volume (Bld) [Entitic vol] 9.5 fL 6.2-12.0 [facility] Monocyte percentageOrdered B y: Justin Cordero on 12-29-2024 Monocytes/100 WBC (Bld) 5.1 % 0-10 [facility] Neutrophil percentageOrdered By: Justin Cordero on 12-29-2024 Neutrophils/100 WBC (Bld) 61.9 % 47-70 [facility] Nucleated red blood cell per centageOrdered By: Justin Cordero on 12-29-2024 Nucleated RBC/100 WBC (Bld) [Ratio] 0 % 0-5 [facility] Platelet countOrdered By: Germán Cordero on 12-29-2024 Platelets (Bld) [#/Vol] 295 10*3/uL 150-450 [facility] Potassium measurement (mass/ volume)Ordered By: Justin Cordero on 12-29-2024 Potassium (Unsp spec) [Mass/Vol] 4.3 mmol/L 3.3-5.1 [facility] Comment on above: Hemolysis present, R esults could be affected. RBC Auto (Bld) [#/Vol]Ordere d By: Justin Cordero on 12-29-2024 RBC (Bld) [#/Vol] 4.88 10*6/uL 4.6-6.2 [facility] Serum creatinine measurement (mass/volume)Ordered By: Justin Cordero on 12-29-2024 Creatinine [Mass/Vol] 0.79 mg/dL 0.70-1.20 [facility] Serum globulin measurementOr dered By: Justin Cordero on 12-29-2024 Globulin (S) [Mass/Vol] 3.0 g/dL 2.2-4.2 [facility] Serum glucose measurement (m ass/volume)Ordered By: Justin Cordeor on 12-29-2024 Glucose [Mass/Vol] 100 mg/dL High 70-99 [facility] Serum or plasma alanine carrera otransferase (ALT) measurementOrdered By: Justin Cordero on 12-29-2024 ALT [Catalytic activity/Vol] 10 U/L <47 [facility] Serum or plasma albumin za urement (mass/volume)Ordered By: Justin Cordero on 12-29-2024 Albumin [Mass/Vol] 3.8 g/dL 3.5-5.0 [facility] Serum or plasma albumin/glob ulin mass ratioOrdered By: Justin Cordero on 12-29-2024 Albumin/Globulin [Mass ratio] 1.3 {ratio} 0.9-2.4 [facility] Serum or plasma alkaline carmen sphatase measurementOrdered By: Justin Cordero on 12-29-2024 ALP [Catalytic activity/Vol] 39 U/L Low 40-129 [facility] Serum or plasma calcium za urement (mass/volume)Ordered By: Justin Cordero on 12-29-2024 Calcium [Mass/Vol] 9.1 mg/dL 7.6-11.0 [facility] Serum or plasma urea nitroge n measurement (mass/volume)Ordered By: Justin Cordero on 12-29-2024 Urea nitrogen [Mass/Vol] 6 mg/dL 4-19 [facility] Sodium levelOrdered By: Justin Cordero on 12-29-2024 Sodium [Moles/Vol] 136 mmol/L 133-145 [facility] Total proteinOrdered By: Van Cordero on 12-29-2024 Protein [Mass/Vol] 6.8 g/dL 5.9-8.4 [facility] White blood cell (WBC) count Ordered By: Justin Cordero on 12-29-2024 WBC (Bld) [#/Vol] 11.7 10*3/uL High 4.4-11.0 [facility] Abdomen/Pelvis W IV Cont ONL Yon 12-09-2024 Abdomen/Pelvis W IV Cont ONLY [facility] Imaging Services [address] [place] [address] Abdomen/Pelvis W IV Cont ONLY MR#: [id number] Acct: [id number] Name: PATRICK KOROMA Rep #: [id number] : 1980 M 44 From: Davis mayfield MD PCP: ERIC Anaay Status: REG ER Study: Abdomen/Pelvis W IV Cont ONLY Date of Exam: Exam# [id number] Ordering Dr: Guero Baker DO PROCEDURE: ABDOMEN/PELVIS [...] of the stomach, probably gastritis. Reading Location: [place] [address] CC: ERIC Starkey; Guero Baker DO Chlorine Plant Operator: Signed Normal [facility] Absolute lymphocyte countOrd ered By: Guero Baker on 12-09-2024 Lymphocytes Auto (Unsp spec) [#/Vol] 3.41 10*3/uL 0.83-4.51 [facility] Absolute neutrophil countOrd ered By: Guero Baker on 12-09-2024 Neutrophils (Bld) [#/Vol] 6.8 10*3/uL 2.0-7.7 [facility] Anion gap in Serum or Plasma Ordered By: Guero Baker on 12-09-2024 Anion gap [Moles/Vol] 11 mmol/L 5-15 [facility] Automated lymphocyte count a s percentage of total leukocytesOrdered By: Guero Baker on 12-09-2024 Lymphocytes/100 WBC Auto (Unsp spec) 30.2 % - [facility] BUN/creatinine ratioOrdered By: Guero Baker on 12-09-2024 Urea nitrogen/Creatinine [Mass ratio] 12.9 mg/mg 10- [facility] Basic Metabolic Profile (BMP )on 12-09-2024 GFR/1.73 sq M.predicted among non-blacks MDRD (S/P/Bld) [Vol rate/Area] 108 mL/min/{1.73_m2} Normal >60 [facility] Comment on above: Performed By: #### L 500.3400, L501.2450, L500.2500 ####[facility] [address] [place], [place], [address] Basophil percentageOrdered B y: Guero Baker on 12-09-2024 Basophils/100 WBC (Bld) 0.8 % 0-1 [facility] Bilirubin directOrdered By: Guero Baker on 12-09-2024 Bilirubin.direct [Mass/Vol] mg/dL 0.00-0.30 [facility] Comment on above: Hemolysis present, R esults could be affected. Bilirubin, totalOrdered By: Guero Baker on 12-09-2024 Bilirubin [Mass/Vol] mg/dL 0.00-1.30 [facility] CBC W/Diff, Automatedon 11-15 Absolute Lymph 3.41 X10 3/uL Normal 0.83-4.51 [facility] Comment on above: Performed By: #### L 503.6005, L100.0100 #### [facility] [address] [place], [address] Absolute Neut 6.8 X10 3/uL Normal 2.0-7.7 [facility] Comment on above: Performed By: #### L 503.6005, L100.0100 #### [facility] [address] [place], [address] Basophils/100 WBC (Bld) 0.8 % Normal 0-1 [facility] Comment on above: Performed By: #### L 503.6005, L100.0100 #### [facility] [address] [place], [address] Eosinophils/100 WBC (Bld) 2.0 % Normal 0-5 [facility] Comment on above: Performed By: #### L 503.6005, L100.0100 #### [facility] [address] [place], [address] Erythrocyte distribution width (RBC) [Ratio] 12.4 % Normal 11.6-14.6 [facility] Comment on above: Performed By: #### L 503.6005, L100.0100 #### [facility] [address] [place], [address] Hematocrit (Bld) [Volume fraction] 44.7 % Normal 40-54 [facility] Comment on above: Performed By: #### L 503.6005, L100.0100 #### [facility] [address] [place], [address] Hemoglobin (Bld) [Mass/Vol] 15.2 g/dL Normal 13.0-16.5 [facility] Comment on above: Performed By: #### L 503.6005, L100.0100 #### [facility] [address] [place], [address] IG% 0.400 Normal 0.0-0.9 [facility] Comment on above: Result Comment: IG% - Immature Granulocytes (promyelocytes, myelocytes and metamyelocytes) > 1% indicates that a LEFT SHIFT is Present. Performed By: #### L 503.6005, L100.0100 #### [facility] [address] [place], [address] Lymphocytes/100 WBC (Bld) 30.2 % Normal 19-41 [facility] Comment on above: Performed By: #### L 503.6005, L100.0100 #### [facility] [address] [place], [address] MCH (RBC) [Entitic mass] 31.1 pg Normal 27.0-32.0 [facility] Comment on above: Performed By: #### L 503.6005, L100.0100 #### [facility] [address] [place], [address] MCHC (RBC) [Mass/Vol] 34.0 g/dL Normal 32-36 [facility] Comment on above: Performed By: #### L 503.6005, L100.0100 #### [facility] [address] [place], [address] MCV (RBC) [Entitic vol] 91.4 fL Normal 80-94 [facility] Comment on above: Performed By: #### L 503.6005, L100.0100 #### [facility] [address] [place], [address] Monocytes/100 WBC (Bld) 6.0 % Normal 0-10 [facility] Comment on above: Performed By: #### L 503.6005, L100.0100 #### [facility] [address] [place], [address] Neutrophils/100 WBC (Bld) 60.6 % Normal 47-70 [facility] Comment on above: Performed By: #### L 503.6005, L100.0100 #### [facility] [address] [place], [address] Nucleated RBC (Bld) [#/Vol] 0 10*3/uL Normal 0-5 [facility] Comment on above: Performed By: #### L 503.6005, L100.0100 #### [facility] [address] [place], [address] Platelet mean volume (Bld) [Entitic vol] 9.4 fL Normal 6.2-12.0 [facility] Comment on above: Performed By: #### L 503.6005, L100.0100 #### [facility] [address] [place], [address] Platelets (Bld) [#/Vol] 295 10*3/uL Normal 150-450 [facility] Comment on above: Performed By: #### L 503.6005, L100.0100 #### [facility] [address] [place], [address] RBC (Bld) [#/Vol] 4.89 10*6/uL Normal 4.6-6.2 [facility] Comment on above: Performed By: #### L 503.6005, L100.0100 #### [facility] [address] [place], [address] RDW SD 41.4 fl Normal 35.1-43.9 [facility] Comment on above: Performed By: #### L 503.6005, L100.0100 #### [facility] [address] [place], [address] WBC (Bld) [#/Vol] 11.3 10*3/uL High 4.4-11.0 [facility] Comment on above: Performed By: #### L 503.6005, L100.0100 #### [facility] [address] [place], [address] Carbon dioxide, total [Moles /volume] in Central venous bloodOrdered By: Guero Baker on 12-09-2024 CO2 [Moles/Vol] 23.5 mmol/L 21.0-32.0 [facility] Chloride assayOrdered By: Maru Baker on 12-09-2024 Chloride [Moles/Vol] 106 mmol/L 98-108 [facility] Emergency Department Summary on 12-09-2024 Emergency Department Summary [facility] Medical Records Department [address] [place] [address] Emergency Department Summary 12/09/24 MR#: [id number] Acct: [id number] Name: PATRICK KOROMA Rep #: [id number] : 1980 44 From: Guero Baker DO [...] able to repaired by a specialist at [facility] [facility] He denies any recent trauma but states that he has been having increasing pain in the mid abdomen which feels similar nature to his previous bouts of hernia complication and therefore comes in for evaluation [facility] Medical History Seroma after procedure Influenza due [...] ER hyper (more content not included)... Normal [facility] Eosinophil percentageOrdered By: Guero Baker on 12-09-2024 Eosinophils/100 WBC (Bld) 2.0 % 0-5 [facility] Erythrocyte distribution wid th ratioOrdered By: Guero Baker on 12-09-2024 Erythrocyte distribution width (RBC) [Ratio] 12.4 % 11.6-14.6 [facility] Erythrocyte distribution wid th standard deviationOrdered By: Guero Baker on 12-09-2024 Erythrocyte distribution width (RBC) [Ratio] 41.4 fl 35.1-43.9 [facility] Glomerular filtration rate ( GFR) estimation/1.73 sq m using serum, plasma, or whole bOrdered By: Guero Baker on 12-09-2024 GFR/1.73 sq M.predicted among non-blacks MDRD (S/P/Bld) [Vol rate/Area] 108 mL/min/{1.73_m2} >60 [facility] Hematocrit Auto (Bld) [Volum e fraction]Ordered By: Guero Baker on 12-09-2024 Hematocrit (Bld) [Volume fraction] 44.7 % 40-54 [facility] Hemoglobin measurementOrdere d By: Guero Baker on 12-09-2024 Hemoglobin (Bld) [Mass/Vol] 15.2 g/dL 13.0-16.5 [facility] Immature granulocytes/100 WB C Auto (Bld)Ordered By: Guero Baker on 12-09-2024 Immature granulocytes/100 WBC (Bld) 0.400 % 0.0-0.9 [facility] Comment on above: IG% - Immature Granu locytes (promyelocytes, myelocytes and metamyelocytes) > 1% indicates that a LEFT SHIFT is Present. Laboratory - Chemistry and C hemistry - challengeOrdered By: Guero Baker on 12-09-2024 AST [Catalytic activity/Vol] 17 U/L <38 [facility] Comment on above: Hemolysis present, R esults could be affected. Lactic Acidon 12-09-2024 Lactate [Moles/Vol] 1.1 mmol/L Normal 0.0-2.0 [facility] Comment on above: Order Comment: Y Performed By: #### L 503.6005, L100.0100 #### [facility] [address] [place], [address] Lactic acid measurementOrder ed By: Guero Baker on 12-09-2024 Lactate [Moles/Vol] 1.1 mmol/L 0.0-2.0 [facility] Lipaseon 12-09-2024 Lipase [Catalytic activity/Vol] 36 U/L Normal 13-75 [facility] Comment on above: Result Comment: Plea se note: LIPASE revised reference range effective 22. New Lipase methodology. Expected to produce lower values than the previous assay method. NEW Reference Range: 13 - 75 U/L Performed By: #### L 500.3400, L501.2450, L500.2500 ####[facility] [place] [facility] [address] [place], [address] Lipase measurementOrdered By : Guero Baker on 12-09-2024 Lipase [Catalytic activity/Vol] 36 U/L 13-75 [facility] [place] [facility] Comment on above: Please note:LIPASE r evised reference range effective 22. New Lipase methodology. Expected to produce lower values than the previous assay method. NEW Reference Range: 13 - 75 U/L Liver Profileon 12-09-2024 Albumin [Mass/Vol] 3.7 g/dL Normal 3.5-5.0 [facility] Comment on above: Performed By: #### L 500.3400, L501.2450, L500.2500 ####[facility] [address] [place], [address] ALK PHOS 42 U/L Normal 40-129 [facility] Comment on above: Performed By: #### L 500.3400, L501.2450, L500.2500 ####[facility] [place] [facility] [address] [place], [address] ALT [Catalytic activity/Vol] 15 U/L Normal <=46 [facility] Comment on above: Performed By: #### L 500.3400, L501.2450, L500.2500 ####[facility] [address] [place], [address] AST [Catalytic activity/Vol] 17 U/L Normal <=37 [facility] Comment on above: Result Comment: Hemo lysis present, Results??could be affected. ?? Performed By: #### L 500.3400, L501.2450, L500.2500 ####[facility] [address] [place], [address] D BILI < 0.08 Normal 0.00-0.30 [facility] Comment on above: Result Comment: Hemo lysis present, Results??could be affected. ?? Performed By: #### L 500.3400, L501.2450, L500.2500 ####[facility] [address] [place], [address] Globulin (S) [Mass/Vol] 2.8 g/dL Normal 2.2-4.2 [facility] Comment on above: Performed By: #### L 500.3400, L501.2450, L500.2500 ####[facility] [place] [facility] [address] [place], [address] T BILI < 0.15 Normal 0.00-1.30 [facility] Comment on above: Performed By: #### L 500.3400, L501.2450, L500.2500 ####[facility] [address] [place], [address] T PROT 6.5 g/dL Normal 5.9-8.4 [facility] Comment on above: Performed By: #### L 500.3400, L501.2450, L500.2500 ####[facility] [address] [place], [place], [address] MCV (mean corpuscular volume ) determinationOrdered By: Guero Baker on 12-09-2024 MCV (RBC) [Entitic vol] 91.4 fL 80-94 [facility] Mean corpuscular hemoglobin (MCH) determinationOrdered By: Guero Baker on 12-09-2024 MCH (RBC) [Entitic mass] 31.1 pg 27.0-32.0 [facility] Mean corpuscular hemoglobin concentration (MCHC) determinationOrdered By: Guero Baker on 12-09-2024 MCHC (RBC) [Mass/Vol] 34.0 g/dL 32-36 [facility] Mean platelet volume determi nationOrdered By: Guero Baker on 12-09-2024 Platelet mean volume (Bld) [Entitic vol] 9.4 fL 6.2-12.0 [facility] Monocyte percentageOrdered B y: Guero Baker on 12-09-2024 Monocytes/100 WBC (Bld) 6.0 % 0-10 [facility] Neutrophil percentageOrdered By: Guero Baker on 12-09-2024 Neutrophils/100 WBC (Bld) 60.6 % 47-70 [facility] Nucleated red blood cell per centageOrdered By: Guero Baker on 12-09-2024 Nucleated RBC/100 WBC (Bld) [Ratio] 0 % 0-5 [facility] Platelet countOrdered By: Maru Baker on 12-09-2024 Platelets (Bld) [#/Vol] 295 10*3/uL 150-450 [facility] Potassium measurement (mass/ volume)Ordered By: Guero Baker on 12-09-2024 Potassium (Unsp spec) [Mass/Vol] 4.0 mmol/L 3.3-5.1 [facility] Comment on above: Hemolysis present, R esults could be affected. RBC Auto (Bld) [#/Vol]Ordere d By: Guero Baker on 12-09-2024 RBC (Bld) [#/Vol] 4.89 10*6/uL 4.6-6.2 [facility] Serum creatinine measurement (mass/volume)Ordered By: Guero Baker on 12-09-2024 Creatinine [Mass/Vol] 0.87 mg/dL 0.70-1.20 [facility] Serum globulin measurementOr dered By: Guero Baker on 12-09-2024 Globulin (S) [Mass/Vol] 2.8 g/dL 2.2-4.2 [facility] Serum glucose measurement (m ass/volume)Ordered By: Guero Baker on 12-09-2024 Glucose [Mass/Vol] 105 mg/dL High 70-99 [facility] Serum or plasma alanine carrera otransferase (ALT) measurementOrdered By: Guero Baker on 12-09-2024 ALT [Catalytic activity/Vol] 15 U/L <47 [facility] Serum or plasma albumin za urement (mass/volume)Ordered By: Guero Baker on 12-09-2024 Albumin [Mass/Vol] 3.7 g/dL 3.5-5.0 [facility] Serum or plasma alkaline carmen sphatase measurementOrdered By: Guero Baker on 12-09-2024 ALP [Catalytic activity/Vol] 42 U/L 40-129 [facility] Serum or plasma calcium za urement (mass/volume)Ordered By: Guero Baker on 12-09-2024 Calcium [Mass/Vol] 8.7 mg/dL 7.6-11.0 [facility] Serum or plasma urea nitroge n measurement (mass/volume)Ordered By: Guero Baker on 12-09-2024 Urea nitrogen [Mass/Vol] 11 mg/dL 4-19 [facility] Sodium levelOrdered By: Scott Baker on 12-09-2024 Sodium [Moles/Vol] 140 mmol/L 133-145 [facility] Total proteinOrdered By: Yovani Baker on 12-09-2024 Protein [Mass/Vol] 6.5 g/dL 5.9-8.4 [facility] White blood cell (WBC) count Ordered By: Guero Baker on 12-09-2024 WBC (Bld) [#/Vol] 11.3 10*3/uL High 4.4-11.0 [facility] Emergency Department Summary on 12-07-2024 Emergency Department Summary [facility] Medical Records Department [address] [place] [address] Emergency Department Summary 12/07/24 MR#: [id number] Acct: [id number] Name: PATRICK KOROMA Rep #: [id number] : 1980 44 From: Guevara Choi MD PCP: ERIC Anaya Status:REG ER Location: ED HPI History of Present Illness Chief Complaint: Upper Extremity Injury Informant: patient Narrative Narrative: During tear down of a car level traction at the [facility], patient states he smashed his right thumb between 2 metal poles on accident. Qsrus-nfgy-djamwiwx. [facility] Medical History Seroma after procedure Influenza due [...] abnormality of the right hand. Reading Location: [id number] Discharge Plan Triage Chief Complaint: Upper Extremity Injury ED Provider: Guevara Choi Dx/Rx/DC Orders Clinical Impression: Contusion of right thumb with damage to nail, initial encounter Instructions: ED Finger or Toe Contusion Prescriptions: No Action NK Primary Care Provider: Viola Starkey NP Referrals: Viola Starkey NP, ME[employer] PACKER-C [Primary Care Provider] - 10-14 Days if not better Print La (more content not included)... Normal [facility] Hand Min 3 Viewson Hand Min 3 Views [facility] Imaging Services [address] [place], [place] [address] Hand Min 3 Views MR#: [id number] Acct: [id number] Name: PATRICK KOROMA Rep #: [id number] : 1980 M 44 From: Stephan Ba MD PCP: ERIC Anaya Status: PRE ER Study: Hand Min 3 Views Date of Exam: 12/06/24 Exam# [id number] Ordering Dr: Guevara Choi MD PROCEDURE: HAND MIN 3 VIEWS 12/06/2024 REASON FOR EXAM: INJURY TECHNIQUE: HAND MIN 3 VIEWS COMPARISON: None FINDINGS: No fracture or traumatic malalignment. Joint spaces are predominantly maintained. Bone mineral density is subjectively normal. The soft tissues are unremarkable. RAD/Hand Min 3 Views IMPRESSION: No acute osseous abnormality of the right hand. Reading Location: [facility] CC: ME[employer] PACKER-C Viola Starkey; Dr. Guevara Choi MD Chlorine Plant Operator: Signed Normal [facility] Clavicleon 09-19-2024 Clavicle [facility] Imaging Services [address] [place], [place] [id number] Clavicle MR#: [id number] Acct: [id number] Name: PATRICK KOROMA FERMÍN Rep #: [id number] : 1980 M 44 From: Kalli Tena DO PCP: ERIC Anaya Status: REG ER Study: Clavicle Date of Exam: 09/19/24 Exam# [id number] Ordering Dr: Brian Maldonado MD PROCEDURE: CLAVICLE 09/19/2024 REASON FOR EXAM: TRAUMA TECHNIQUE: Two views of the right clavicle were obtained COMPARISON: None FINDINGS: Bones: No acute fracture. Joints: Joint spaces are preserved. Soft tissues: No soft tissue abnormality. RAD/Clavicle IMPRESSION: NO EVIDENCE OF CLAVICLE FRACTURE Reading Location: [place] CC: MEAL PACKERMaile Starkey; Dr. Brian Maldonado MD Chlorine Plant Operator: Signed Normal [facility] Emergency Department Summary on 09-19-2024 Emergency Department Summary [facility] Medical Records Department [address] [place] [address] Emergency Department Summary 09/19/24 MR#: [id number] Acct: [id number] Name: PATRICK KOROMA Rep #: [id number] : 1980 44 From: Brian Maldonado MD PCP: ERIC Anaya Status:REG ER Location: ED HPI History of Present Illness Chief Complaint: Upper Extremity Injury Narrative Narrative: 44-year-old male, wuxow-zsbr-ljwgxgyn, presents with injury to his right shoulder [...] raise his right arm. Denies other injuries. [facility] Medical History Seroma after procedure Influenza due [...] clavicle and shoulder pain worse with movement. Ijyai-iiyy-beegsaxh. Denies hitting of his head or loss [...] AC joint separation. Patient was given 1 [place] tablet here for analgesia and x-rays obtained [...] not improving. I feel he can take mfsg-qro-yivalfk medications for analgesia. Return instructions to the emergency department were reviewed. Disposition is discharged home in stable condition. History Recor (more content not included)... Normal [facility] Shoulder min 2 Viewson 09-19 Shoulder min 2 Views [facility] Imaging Services [address] [place] [id number] Shoulder min 2 Views MR#: [id number] Acct: [id number] Name: PATRICK KOROMA Rep #: [id number] : 1980 M 44 From: Kalli Tena DO PCP: ERIC Anaya Status: REG ER Study: Shoulder min 2 Views Date of Exam: 09/19/24 Exam# [id number] Ordering Dr: Brian Maldonado MD PROCEDURE: SHOULDER MIN 2 VIEWS 09/19/2024 REASON FOR EXAM: TRAUMA TECHNIQUE: 4 view(s) of the right shoulder COMPARISON: None FINDINGS: Bones: No acute fracture. Joints: Normal alignment of the acromioclavicular and glenohumeral joints. Soft tissues: Soft tissues are unremarkable. Other: RAD/Shoulder min 2 Views IMPRESSION: NO ACUTE FRACTURE OR DISLOCATION. Reading Location: [facility] CC: MEAL PACKERMaile Starkey; Dr. Brian Maldonado MD Chlorine Plant Operator: Signed Normal [facility] .Auto Diffon 09-08-2024 Basophil, Absolute 0.1 10 3/mcL Normal 0.0-0.2 [facility] Comment on above: Performed By: #### A DIFF, CMP, CBC, LIPID, GFR, ANEU #### [address] [address] Basophils/100 WBC (Bld) 1.0 % Normal 0.0-2.5 [facility] Comment on above: Performed By: #### A DIFF, CMP, CBC, LIPID, GFR, ANEU #### [address] [address] Eosinophil, Absolute 0.1 10 3/mcL Normal 0.0-0.7 [facility] Comment on above: Performed By: #### A DIFF, CMP, CBC, LIPID, GFR, ANEU #### [address] [address] Eosinophils/100 WBC (Bld) 0.8 % Normal 0.0-7.0 [facility] Comment on above: Performed By: #### A DIFF, CMP, CBC, LIPID, GFR, ANEU #### [address] [address] Lymphocyte, Absolute 2.2 10 3/mcL Normal 0.9-4.3 [facility] Comment on above: Performed By: #### A DIFF, CMP, CBC, LIPID, GFR, ANEU #### [address] [address] Lymphocytes/100 WBC (Bld) 17.9 % Low 20.0-40.0 [facility] Comment on above: Performed By: #### A DIFF, CMP, CBC, LIPID, GFR, ANEU #### [address] [address] Monocyte, Absolute 0.8 10 3/mcL Normal 0.1-1.4 [facility] Comment on above: Performed By: #### A DIFF, CMP, CBC, LIPID, GFR, ANEU #### [address] [address] Monocytes/100 WBC (Bld) 6.5 % Normal 2.0-13.0 [facility] Comment on above: Performed By: #### A DIFF, CMP, CBC, LIPID, GFR, ANEU #### [address] [address] Neutrophils/100 WBC (Bld) 73.8 % Normal 50.0-75.0 [facility] Comment on above: Performed By: #### A DIFF, CMP, CBC, LIPID, GFR, ANEU #### [address] [address] .GFRon 09-08-2024 Estimated Glomerular Filtration Rate 99 ml/min/1.73sqm Normal [facility] Comment on above: Result Comment: Stages [...] DIFF, CMP, CBC, LIPID, GFR, ANEU #### [address] [address] .NEUABSon 09-08-2024 Neutrophil, Absolute 9.2 10 3/mcL High 2.3-8.1 [facility] Comment on above: Performed By: #### A DIFF, CMP, CBC, LIPID, GFR, ANEU #### [address] [address] CBCon 09-08-2024 Erythrocyte distribution width (RBC) [Ratio] 13.3 % Normal 11.5-15.5 [facility] Comment on above: Performed By: #### A DIFF, CMP, CBC, LIPID, GFR, ANEU #### [address] [address] Hematocrit (Bld) [Volume fraction] 45.6 % Normal 40.0-52.0 [facility] Comment on above: Performed By: #### A DIFF, CMP, CBC, LIPID, GFR, ANEU #### [address] [address] Hgb 15.3 G/dL Normal 13.0-17.5 [facility] Comment on above: Performed By: #### A DIFF, CMP, CBC, LIPID, GFR, ANEU #### [address] [address] MCH (RBC) [Entitic mass] 31.0 pg Normal 27.0-33.0 [facility] Comment on above: Performed By: #### A DIFF, CMP, CBC, LIPID, GFR, ANEU #### [address] [address] MCHC 33.5 G/dL Normal 32.0-36.0 [facility] Comment on above: Performed By: #### A DIFF, CMP, CBC, LIPID, GFR, ANEU #### [address] [address] MCV (RBC) [Entitic vol] 92.3 fL Normal 81.0-100.0 [facility] Comment on above: Performed By: #### A DIFF, CMP, CBC, LIPID, GFR, ANEU #### [address] [address] Platelet 297 10 3/mcL Normal 150-450 [facility] Comment on above: Performed By: #### A DIFF, CMP, CBC, LIPID, GFR, ANEU #### [address] [address] Platelet mean volume (Bld) [Entitic vol] 8.0 fL Normal 6.4-10.5 [facility] Comment on above: Performed By: #### A DIFF, CMP, CBC, LIPID, GFR, ANEU #### [address] [address] RBC 4.94 10 6/mcL Normal 4.50-6.00 [facility] Comment on above: Performed By: #### A DIFF, CMP, CBC, LIPID, GFR, ANEU #### [address] [address] WBC 12.5 10 3/mcL High 4.5-10.8 [facility] Comment on above: Performed By: #### A DIFF, CMP, CBC, LIPID, GFR, ANEU #### [address] [address] CMPon 09-08-2024 Albumin Level 3.7 G/dL Normal 3.5-5.0 [facility] Comment on above: Performed By: #### A DIFF, CMP, CBC, LIPID, GFR, ANEU #### [place] [id number] Albumin/Globulin [Mass ratio] 0.9 {ratio} Low 1.1-2.5 [facility] Comment on above: Performed By: #### A DIFF, CMP, CBC, LIPID, GFR, ANEU #### [place] [id number] ALP [Catalytic activity/Vol] 51 U/L Normal 40-135 [facility] Comment on above: Performed By: #### A DIFF, CMP, CBC, LIPID, GFR, ANEU #### [place] [id number] ALT [Catalytic activity/Vol] 17 U/L Normal 16-63 [facility] Comment on above: Performed By: #### A DIFF, CMP, CBC, LIPID, GFR, ANEU #### [address] [address] AST [Catalytic activity/Vol] 15 U/L Normal 10-40 [facility] Comment on above: Performed By: #### A DIFF, CMP, CBC, LIPID, GFR, ANEU #### [place] [address] Bili Total 0.2 mg/dL Normal 0.2-1.0 [facility] Comment on above: Result Comment: Use of this assay is not recommended for patients undergoing treatment with eltrombopag due to the potential for falsely elevated results. Performed By: #### A DIFF, CMP, CBC, LIPID, GFR, ANEU #### [address] [address] BUN/Creatinine Ratio 11 ratio Normal 7-27 [facility] Comment on above: Performed By: #### A DIFF, CMP, CBC, LIPID, GFR, ANEU #### [address] [address] Calcium [Mass/Vol] 9.7 mg/dL Normal 8.4-10.2 [facility] Comment on above: Performed By: #### A DIFF, CMP, CBC, LIPID, GFR, ANEU #### [address] [address] Chloride [Moles/Vol] 99 mmol/L Normal 98-107 [facility] Comment on above: Performed By: #### A DIFF, CMP, CBC, LIPID, GFR, ANEU #### [place] [address] CO2 [Moles/Vol] 27 mmol/L Normal 22-29 [facility] Comment on above: Performed By: #### A DIFF, CMP, CBC, LIPID, GFR, ANEU #### [address] [address] Creatinine [Mass/Vol] 0.96 mg/dL Normal 0.70-1.[address] [facility] Comment on above: Result Comment: Test ing performed on Siemens Dimension EXL analyzer using a modified kinetic Elyse technique. Performed By: #### A DIFF, CMP, CBC, LIPID, GFR, ANEU #### [address] [address] Electrolyte Balance 8.0 mEq/L Normal 4.0-15.0 [facility] Comment on above: Performed By: #### A DIFF, CMP, CBC, LIPID, GFR, ANEU #### [place] [address] Globulin 4.0 G/dL High 1.5-3.8 [facility] Comment on above: Performed By: #### A DIFF, CMP, CBC, LIPID, GFR, ANEU #### [address] [address] Glucose [Mass/Vol] 91 mg/dL Normal 70-105 [facility] Comment on above: Performed By: #### A DIFF, CMP, CBC, LIPID, GFR, ANEU #### [address] [address] Potassium [Moles/Vol] 4.4 mmol/L Normal 3.5-5.[address] [facility] Comment on above: Performed By: #### A DIFF, CMP, CBC, LIPID, GFR, ANEU #### [address] [address] Sodium [Moles/Vol] 134 mmol/L Low 136-145 [facility] Comment on above: Performed By: #### A DIFF, CMP, CBC, LIPID, GFR, ANEU #### [address] [address] Total Protein 7.7 G/dL Normal 6.4-8.2 [facility] Comment on above: Performed By: #### A DIFF, CMP, CBC, LIPID, GFR, ANEU #### [address] [address] Urea nitrogen [Mass/Vol] 11 mg/dL Normal 7-18 [facility] Comment on above: Performed By: #### A DIFF, CMP, CBC, LIPID, GFR, ANEU #### [address] [address] LIPIDon 09-08-2024 Cholesterol [Mass/Vol] 177 mg/dL Normal 0-200 [facility] Comment on above: Result Comment: Chol esterol Reference Interval: Less than 200 Desirable 200-239 Borderline high risk 240 and above High risk Performed By: #### A DIFF, CMP, CBC, LIPID, GFR, ANEU #### [address] [address] Cholesterol in HDL [Mass/Vol] 44 mg/dL Normal 40-60 [facility] Comment on above: Performed By: #### A DIFF, CMP, CBC, LIPID, GFR, ANEU #### [facility] [address] [place], [place] [address] Cholesterol in LDL [Mass/Vol] 108 mg/dL Normal 0-130 [facility] Comment on above: Performed By: #### A DIFF, CMP, CBC, LIPID, GFR, ANEU #### [facility] [address] [place], [place] [address] Triglyceride [Mass/Vol] 125 mg/dL Normal 0-150 [facility] Comment on above: Result Comment: Trig lyceride Reference Interval: Less than 150 Normal 150-199 Borderline high risk 200-499 High risk 500 or higher Very high risk Performed By: #### A DIFF, CMP, CBC, LIPID, GFR, ANEU #### [place] [id number] [place], [place] [address] XR FOOT MINIMUM 3 VIEWS LEFT on [...] 09/08/2024 12:53:40 AM Ordering Provider: SHANIKA TIRADO [facility] Emergency Department Summary on 08-24-2024 Emergency Department Summary [facility] Medical Records Department [address] [place] [address] Emergency Department Summary 08/24/24 MR#: [id number] Acct: [id number] Name: PATRICK KOROMA Rep #: [id number] : 1980 44 From: Cristian Tate PCP: Care Physician,No Primary Status:DEP ER Location: ED HPI History of Present Illness Chief Complaint: Upper Extremity Injury Informant: patient Narrative Narrative: Cfzit-gdxu-drzbkqrc male presents right shoulder injury 2 hours [...] Medical decision (more content not included)... Normal [facility] [place] [facility] Shoulder min 2 Viewson 08-24 Shoulder min 2 Views [facility] Imaging Services [address] [place] [address] Shoulder min 2 Views MR#: [id number] Acct: [id number] Name: PATRICK KOROMA Rep #: [id number] : 1980 M 44 From: Ke Mario PCP: Care Physician,No Primary Status: PRE ER Study: Shoulder min 2 Views Date of Exam: 08/24/24 Exam# [id number] Ordering Dr: Provider,Ed P. PROCEDURE: Right shoulder radiographs REASON FOR EXAM: PAIN, LOSS OF MOBILITY TECHNIQUE: Four views of the right shoulder COMPARISON: None. FINDINGS: See impression RAD/Shoulder min 2 Views IMPRESSION: Negative for acute fracture or malalignment. 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 Mild acromioclavicular joint osteoarthritis. 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 IMAGING CT ABDOMEN/PELVIS W/O CONTRA STochaparro 05-16-2024 CT ABDOMEN/PELVIS W/O CONTRAST ORIGINAL EXAMINATION: [...] 10:27:09 PM Ordering Provider: RADHA Nelson [facility] CNCOon 10-21-2023 CNCO Letter Text Normal [facility] CNPNon 10-10-2023 CNPN Telephone (SPNSMN) PATRICK KOROMA ([id number]) 1980 M Date Time Provider Department 10/10/23 [...] the call' MYC message sent. Christy Rodrigez MANAGER CLIENT SERVICE Nurse Senior Sql Developer Christy Rodrigez RN 10/21/2023 10:47 AM Signed [...] med injection with Dr. Hannah. Christy Rodrigez MANAGER CLIENT SERVICE Nurse Senior Sql Developer Allergies As of Date: 10/10/2023 Noted Allergy [...] Status:Closed by CHRISTY RODRIGEZ on 11/04/23 Normal [facility] CONFIRM BLOOD TYPEon 024 ABO B Normal [facility] Comment on above: Order Comment: Speci men Type: BLOOD SPECIMEN Ordering Facility: [facility] Address: [address] [place] [address] Performed By: #### C ONABO #### [facility] CLIA [id number] [address] [place] [address] [place] [address] [place] Rh Nom (Bld) Positive Normal [facility] Comment on above: Order Comment: Speci men Type: BLOOD SPECIMEN Ordering Facility: [facility] Address: [address] [place] [address] Performed By: #### C ONABO #### [facility] CLIA [id number] [address] [place] [address] [place] NURSING PROGon 10-07-2023 NURSING PROG HNO ID: [id number] Author: LESLIE JARRETT RN Service: ? Author [...] was completed by: Leslie Jarrett RN Normal [facility] CBC W Auto Differential pane l (Bld)on 09-16-2023 Basophils (Bld) [#/Vol] 0.06 10*3/uL Normal <0.11 [facility] Comment on above: Order Comment: Speci men Type: BLOOD SPECIMEN Ordering Facility: [facility] Address: [address] [place] [address] Performed By: #### C ONABO #### [facility] CLIA [id number] [address] [place] [address] [place] Basophils/100 WBC (Bld) 0.6 % Normal C [facility] Comment on above: Order Comment: Speci men Type: BLOOD SPECIMEN Ordering Facility: [facility] Address: [address] [place] [address] Performed By: #### C ONABO #### [facility] CLIA [id number] [address] [place] [address] [place] Differential cell count method Nom (Bld) Auto Normal [facility] Comment on above: Order Comment: Speci men Type: BLOOD SPECIMEN Ordering Facility: [facility] Address: [address] [place] [address] Performed By: #### C ONABO #### [facility] CLIA [id number] [address] [place] [address] [place] Eosinophils (Bld) [#/Vol] 0.09 10*3/uL Normal <0.46 [facility] Comment on above: Order Comment: Speci men Type: BLOOD SPECIMEN Ordering Facility: [facility] Address: [address] [place] [address] Performed By: #### C ONABO #### [facility] CLIA [id number] [address] [place] [address] [place] Eosinophils/100 WBC (Bld) 1.0 % Normal [facility] Comment on above: Order Comment: Speci men Type: BLOOD SPECIMEN Ordering Facility: [facility] Address: [address] [place] [address] Performed By: #### C ONABO #### [facility] CLIA [id number] [address] [place] [address] [place] Erythrocyte distribution width (RBC) [Ratio] 12.5 % Normal 11.5-15.0 [facility] Comment on above: Order Comment: Speci men Type: BLOOD SPECIMEN Ordering Facility: [facility] Address: [address] [place] [address] Performed By: #### C ONABO #### [facility] CLIA [id number] [address] [place] [address] [place] Hematocrit (Bld) [Volume fraction] 47.3 % Normal 39.0-51.0 [facility] Comment on above: Order Comment: Speci men Type: BLOOD SPECIMEN Ordering Facility: [facility] Address: [address] [place] [address] Performed By: #### C ONABO #### [facility] CLIA [id number] [address] [place] [address] [place] Hemoglobin (Bld) [Mass/Vol] 16.1 g/dL Normal 13.0-17.0 [facility] Comment on above: Order Comment: Speci men Type: BLOOD SPECIMEN Ordering Facility: [facility] Address: [address] [place] [address] Performed By: #### C ONABO #### [facility] CLIA [id number] [address] [place] [address] [place] Immature granulocytes (Bld) [#/Vol] 0.03 10*3/uL Normal <0.10 [facility] Comment on above: Order Comment: Speci men Type: BLOOD SPECIMEN Ordering Facility: [facility] Address: [address] [place] [address] Performed By: #### C ONABO #### [facility]LO[facility] CLIA [id number] [address] [place] [address] [place] Immature granulocytes/100 WBC (Bld) 0.3 % Normal [facility] Comment on above: Order Comment: Speci men Type: BLOOD SPECIMEN Ordering Facility: [facility] Address: [address] [place] [address] Performed By: #### C ONABO #### [facility] CLIA [id number] [address] [place] [address] [place] Lymphocytes (Bld) [#/Vol] 2.61 10*3/uL Normal 1.00-4.00 [facility] Comment on above: Order Comment: Speci men Type: BLOOD SPECIMEN Ordering Facility: [facility] Address: [address] [place] [address] Performed By: #### C ONABO #### [facility] CLIA [id number] [address] [place] [address] [place] Lymphocytes/100 WBC (Bld) 28.2 % Normal [facility] Comment on above: Order Comment: Speci men Type: BLOOD SPECIMEN Ordering Facility: [facility] Address: [address] [place] [address] Performed By: #### C ONABO #### [facility]LOOD [facility] CLIA [id number] [address] [place] [address] [place] MCH (RBC) [Entitic mass] 31.0 pg Normal 26.0-34.0 [facility] Comment on above: Order Comment: Speci men Type: BLOOD SPECIMEN Ordering Facility: [facility] Address: [address] [place] [address] Performed By: #### C ONABO #### [facility]LOOD [facility] CLIA [id number] [address] [place] [address] [place] MCHC (RBC) [Mass/Vol] 34.0 g/dL Normal 30.5-36.0 [facility] Comment on above: Order Comment: Speci men Type: BLOOD SPECIMEN Ordering Facility: [facility] Address: [address] [place] [address] Performed By: #### C ONABO #### [facility]LOOD [facility] CLIA [id number] [address] [place] [address] [place] MCV (RBC) [Entitic vol] 91.1 fL Normal 80.0-100.0 [facility] Comment on above: Order Comment: Speci men Type: BLOOD SPECIMEN Ordering Facility: [facility] Address: [address] [place] [address] Performed By: #### C ONABO #### [facility]LOOD B[facility] CLIA [id number] [address] [place] [address] [place] Monocytes (Bld) [#/Vol] 0.51 10*3/uL Normal <0.87 [facility] Comment on above: Order Comment: Speci men Type: BLOOD SPECIMEN Ordering Facility: [facility] Address: [address] [place] [address] Performed By: #### C ONABO #### [facility]IN BLOOD B[facility] CLIA [id number] [address] [place], [place] [id number] [place] Monocytes/100 WBC (Bld) 5.5 % Normal C [facility] Comment on above: Order Comment: Speci men Type: BLOOD SPECIMEN Ordering Facility: [facility] Address: [address] [place] [address] Performed By: #### C ONABO #### [facility]LOOD B[facility] CLIA [id number] [address] [place] [address] [place] Neutrophils (Bld) [#/Vol] 5.94 10*3/uL Normal 1.45-7.50 [facility] Comment on above: Order Comment: Speci men Type: BLOOD SPECIMEN Ordering Facility: [facility] Address: [address] [place] [address] Performed By: #### C ONABO #### [facility]LOOD B[facility] CLIA [id number] [address] [place] [address] [place] Neutrophils/100 WBC (Bld) 64.4 % Normal [facility] Comment on above: Order Comment: Speci men Type: BLOOD SPECIMEN Ordering Facility: [facility] Address: [address] [place] [address] Performed By: #### C ONABO #### [facility]LOOD [facility] CLIA [id number] [address] [place] [address] [place] Nucleated RBC (Bld) [#/Vol] 10*3/uL Normal <0.01 [facility] Comment on above: Order Comment: Speci men Type: BLOOD SPECIMEN Ordering Facility: [facility] Address: [address] [place] [address] Performed By: #### C ONABO #### [facility]LOOD [facility] CLIA [id number] [address] [place] [address] [place] Nucleated RBC/100 WBC (Bld) [Ratio] 0.0 /100 WBC Normal [facility] Comment on above: Order Comment: Speci men Type: BLOOD SPECIMEN Ordering Facility: [facility] Address: [address] [place] [address] Performed By: #### C ONABO #### [facility]LOOD [facility] CLIA [id number] [address] [place] [address] [place] Platelet mean volume (Bld) [Entitic vol] 9.6 fL Normal 9.0-12.7 [facility] Comment on above: Order Comment: Speci men Type: BLOOD SPECIMEN Ordering Facility: [facility] Address: [address] [place] [address] Performed By: #### C ONABO #### [facility]LOOD [facility] CLIA [id number] [address] [place] [address] [place] Platelets (Bld) [#/Vol] 307 10*3/uL Normal 150-400 [facility] Comment on above: Order Comment: Speci men Type: BLOOD SPECIMEN Ordering Facility: [facility] Address: [address] [place] [address] Performed By: #### C ONABO #### [facility]LOOD B[facility] CLIA [id number] [address] [place] [address] [place] RBC (Bld) [#/Vol] 5.19 10*6/uL Normal 4.20-6.00 [facility] Comment on above: Order Comment: Speci men Type: BLOOD SPECIMEN Ordering Facility: [facility] Address: [address] [place] [address] Performed By: #### C ONABO #### [facility]IN BLOOD B[facility] CLIA [id number] [address] [place], [place] [id number] [place] WBC (Bld) [#/Vol] 9.24 10*3/uL Normal 3.70-11.00 [facility] Comment on above: Order Comment: Speci men Type: BLOOD SPECIMEN Ordering Facility: [facility] Address: [address] [place] [address] Performed By: #### C ONABO #### [facility]LOOD [facility] CLIA [id number] [address] [place] [address] [place] Comprehensive metabolic 2000 panelon 09-16-2023 Albumin [Mass/Vol] 4.1 g/dL Normal 3.9-4.9 [facility] Comment on above: Order Comment: Speci men Type: BLOOD SPECIMEN Ordering Facility: [facility] Address: [address] [place] [address] Performed By: #### C ONABO #### [facility]LOOD B[facility] CLIA [id number] [address] [place] [address] [place] ALP [Catalytic activity/Vol] 46 U/L Normal 38-113 [facility] Comment on above: Order Comment: Speci men Type: BLOOD SPECIMEN Ordering Facility: [facility] Address: [address] [place] [address] Performed By: #### C ONABO #### [facility]LOOD B[facility] CLIA [id number] [address] [place] [address] [place] ALT [Catalytic activity/Vol] 21 U/L Normal 10-54 [facility] Comment on above: Order Comment: Speci men Type: BLOOD SPECIMEN Ordering Facility: [facility] Address: [address] [place] [address] Performed By: #### C ONABO #### [facility]LOOD [facility] CLIA [id number] [address] [place] [address] [place] Anion gap [Moles/Vol] 12 mmol/L Normal 9-18 [facility] Comment on above: Order Comment: Speci men Type: BLOOD SPECIMEN Ordering Facility: [facility] Address: [address] [place] [address] Performed By: #### C ONABO #### [facility]IN [facility]LOOD B[facility] CLIA [id number] [address] [place] [address] [place] AST [Catalytic activity/Vol] 19 U/L Normal 14-40 [facility] Comment on above: Order Comment: Speci men Type: BLOOD SPECIMEN Ordering Facility: [facility] Address: [address] [place] [address] Performed By: #### C ONABO #### [facility]IN [facility]LOOD B[facility] CLIA [id number] [address] [place] [address] [place] Bilirubin [Mass/Vol] 0.2 mg/dL Normal 0.2-1.3 [facility] Comment on above: Order Comment: Speci men Type: BLOOD SPECIMEN Ordering Facility: [facility] Address: [address] [place] [address] Performed By: #### C ONABO #### [facility]IN [facility]LOOD B[facility] CLIA [id number] [address] [place] [address] [place] Calcium [Mass/Vol] 9.1 mg/dL Normal 8.5-10.2 [facility] Comment on above: Order Comment: Speci men Type: BLOOD SPECIMEN Ordering Facility: [facility] Address: [address] [place] [address] Performed By: #### C ONABO #### [facility]IN [facility]LOOD B[facility] CLIA [id number] [address] [place] [address] [place] Chloride [Moles/Vol] 104 mmol/L Normal 97-105 [facility] Comment on above: Order Comment: Speci men Type: BLOOD SPECIMEN Ordering Facility: [facility] Address: [address] [place] [address] Performed By: #### C ONABO #### [facility]IN [facility]LOOD B[facility] CLIA [id number] [address] [place] [address] [place] CO2 [Moles/Vol] 20 mmol/L Low 22-30 [facility] Comment on above: Order Comment: Speci men Type: BLOOD SPECIMEN Ordering Facility: [facility] Address: [address] [place] [address] Performed By: #### C ONABO #### CC [facility]LOOD B[facility] CLIA [id number] [address] [place] [address] [place] Creatinine [Mass/Vol] 0.73 mg/dL Normal 0.73-1.22 [facility] Comment on above: Order Comment: Vikash vasquez Type: BLOOD SPECIMEN Ordering Facility: [facility] Address: [address] [place] [address] Performed By: #### C ONABO #### [facility] IA [id number] [address] [place] [address] [place] Creatinine and Glomerular filtration rate.predicted panel (S/P/Bld) 115 mL/min/1.73m??? Normal >=60 [facility] Comment on above: Order Comment: Vikash vasquez Type: BLOOD SPECIMEN Ordering Facility: [facility] Address: [address] [place] [address] Result Comment: Ktaie mated Glomerular Filtration Rate (eGFR) is calculated [...] ONABO #### CC [facility]IN [facility]LOOD B[facility] CLIA [id number] [address] [place] [address] [place] Glucose [Mass/Vol] 124 mg/dL High 74-99 [facility] Comment on above: Order Comment: Vikash vasquez Type: BLOOD SPECIMEN Ordering Facility: [facility] Address: [address] [place] [address] Result Comment: The [place] Diabetes Association (ADA) provides guidance for cutoff [...] Standards of Medical Care in Diabetes 2016, [place] [employer]. Diabetes Care. 2016.39(Suppl 1). Performed By: #### C ONABO #### CC [facility]LOOD B[facility] CLIA [id number] [address] [place] [address] [place] Potassium [Moles/Vol] 4.2 mmol/L Normal 3.7-5.1 [facility] Comment on above: Order Comment: Speci men Type: BLOOD SPECIMEN Ordering Facility: [facility] Address: [address] [place] [address] Performed By: #### C ONABO #### [facility]LOOD B[facility] CLIA [id number] [address] [place] [address] [place] Protein [Mass/Vol] 6.8 g/dL Normal 6.3-8.0 [facility] Comment on above: Order Comment: Speci men Type: BLOOD SPECIMEN Ordering Facility: [facility] Address: [address] [place] [address] Performed By: #### C ONABO #### [facility]LOOD B[facility] CLIA [id number] [address] [place] [address] [place] Sodium [Moles/Vol] 136 mmol/L Normal 136-144 [facility] Comment on above: Order Comment: Speci men Type: BLOOD SPECIMEN Ordering Facility: [facility] Address: [address] [place] [address] Performed By: #### C ONABO #### [facility]LOOD [facility] CLIA [id number] [address] [place] [address] [place] Urea nitrogen [Mass/Vol] 9 mg/dL Normal 9-24 [facility] Comment on above: Order Comment: Speci men Type: BLOOD SPECIMEN Ordering Facility: [facility] Address: [address] [place] [address] Performed By: #### C ONABO #### [facility]LOOD [facility] CLIA [id number] [address] [place] [address] [place] ECG COMPLETEon 04-02-2024 ECG COMPLETE Ventricular Rate : 9 6 BPM Atrial Rate : 96 BPM P-R Interval : 136 ms QRS Duration : 94 ms Q-T Interval : 362 ms QTC Calculation(Bazett) : 457 ms Calculated P [place] : 30 degrees Calculated R [place] : 19 degrees Calculated T [place] : 18 degrees NORMAL SINUS RHYTHM NORMAL ECG Confirmed by MD SHILOH, PhD, MATTHEW ([id number]) on 09/25/2023 1:38:47 PM NAME : PATRICK KOROMA PID : [id number] : 1980 Gender : Male Race : ORD : [id number] Procedure Date : Sep 16 2023 12:20:58 Edit Date : Sep 25 2023 13:38:51 Diagnosis: NORMAL SINUS RHYTHM NORMAL ECG Confirmed by MD SHILOH, PhD, AMTTHEW ([id number]) on 09/25/2023 1:38:47 PM Test Reason : Location : 119 : [facility] A17 Overread By : MD SHILOH, PhD,MATTHEW Edited By : MD SHILOH, PhD,MATTHEW Referred By : TRINIDAD RICHARDSON Acquired by : ESAU MCGARRY [facility] HISTORY PHYSICALon HISTORY PHYSICAL HNO ID: [id number] Author: GILLES GRAHAM PA-C Service: ? Author Type: Physician Insurance Verify Rep Type: H&P Filed: 09/16/2023 12:27 Note Text: HISTORY AND PHYSICAL EXAMINATION SERVICE DATE: 09/15/2023 SERVICE TIME: 12:25 PM PRIMARY CARE PHYSICIAN: Leydi Martin MD Assessment Patient has the following [...] INFECTION (Pending) at the request of Dr. Trinidad Richardson for consultation. My final recommendation will [...] requiring medication, no history of angina, CHF, AR, cardiac surgery or stents. Denies rest pain, [...] 1.00 Year (more content not included)... Normal [facility] PT panel Coag (PPP)on 2023 INR Coag (PPP) [Relative time] 0.9 {INR} Normal 0.9-1.3 [facility] Comment on above: Order Comment: Speci men Type: BLOOD SPECIMEN Ordering Facility: [facility] Address: [address] [place], [place] [address] [id number] Result Comment: Bisi min K Antagonist (VKA) Therapeutic Range: INR 2 to 3 (Target INR of 2.5) Note: For patients treated with VKA drugs, such as warfarin, the [place] [employer] 2012 Guideline recommends [...] Chest 2012, 141:7S-47S Sharla RA, et al. [facility] 2017, 70: 252-289 Performed By: #### C ONABO #### CC MAIN BLOOD BANK CLIA [id number] [address] [place] [address] [place] PT Coag (PPP) [Time] 10.1 s Normal 9.7-13.0 [facility] Comment on above: Order Comment: Speci men Type: BLOOD SPECIMEN Ordering Facility: [facility] Address: [address] [place] [address] Performed By: #### C ONABO #### [facility]LOOD [facility] CLIA [id number] [address] [place] [address] [place] TYPE AND SCREEN,30 DAYon ABO B Normal [facility] Comment on above: Order Comment: Speci men Type: BLOOD SPECIMEN Ordering Facility: [facility] Address: [address] [place] [address] Performed By: #### T SCR30 #### [facility]LOOD [facility] CLIA [id number] [address] [place] [address] [place] HISTORICAL AB SCR STATUS Negative Normal [facility] Comment on above: Order Comment: Speci men Type: BLOOD SPECIMEN Ordering Facility: [facility] Address: [address] [place] [address] Performed By: #### T SCR30 #### [facility]LOOD [facility] CLIA [id number] [address] [place] [address] [place] Rh Nom (Bld) Positive Normal [facility] Comment on above: Order Comment: Speci men Type: BLOOD SPECIMEN Ordering Facility: [facility] Address: [address] [place] [address] Performed By: #### T SCR30 #### [facility] IA [id number] [address] [place] [address] [place] aPTT PPPon 09-16-2023 aPTT Coag (PPP) [Time] 29.1 s Normal 23.0-32.4 [facility] Comment on above: Order Comment: Speci men Type: BLOOD SPECIMEN Ordering Facility: [facility] Address: [address] [place] [address] Performed By: #### C ONABO #### [facility] IA [id number] [address] [place] [address] OF [place]ANS CNOVon 08-06-2023 CNOV Office Visit (NPRC21 ) VALDOMARITZAPATRICK A ([id number]) 1980 M Date Time Provider Department 08/06/23 9:30 AM VICKI MERAZ NPR1 During your visit today, we recorded the following information about you: Pulse Blood pressure Weight Height 107/minute 153/101 158.8 kg 1.88 m Vicki Meraz APRN.CNP, DNP 08/06/2023 10:16 AM Signed In-Person Visit Present: patient [facility] August 06, 2023 Patrick Koroma is a 43 year old , 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 He was referred by Suresh Griffiths CNP (General Surgery) [address] [place] [id number]. This consultation was shared with the referral source via the [facility] electronic medical record. The patient understanding [...] ago. Previous pain treatments: medications, surgery 07/07/23 Trinidad Richardson MD (General Surgery) Patrick Koroma is [...] No suspicious activity was identified. 08/06/2023 by Vicki Meraz APRN.INVOICE CLERK, DNP Functional Limitations: The patient has been [...] hematoma (HCC) (more content not included)... Normal [facility] CNOVon 07-07-2023 CNOV Office Visit (JUNG ) PATRICK KOROMA ([id number]) 1980 M Date Time Provider Department 07/07/23 9:00 AM TRINIDAD RICHARDSON During your visit today, we recorded [...] Viviana Teresa MD 07/07/2023 9:35 AM Signed [facility] - HISTORY AND PHYSICAL Chief Complaint: pain to the left of the hernia repair HPI: Patrick Koroma is a 43 year old male with PMH post traumatic seizure disorder, s/p appendectomy and multiple hernia repair who presents with pain lateral to the hernia repair site On 11/22/21 he had a robotic assisted repair of recurrent ventral hernia at [facility] with Dr Aaron Duque with removal of [...] is warm (more content not included)... Normal [facility] .Auto Diffon 06-28-2023 Basophil, Absolute 0.0 10 3/mcL Normal 0.0-0.2 [facility] ([place]) Comment on above: Performed By: #### C BC, CMP, ADIFF, MDW, LIP, ANEU, GFR #### [address] [address] Basophils/100 WBC (Bld) 0.2 % Normal 0.0-2.5 [facility] ([place]) Comment on above: Performed By: #### C BC, CMP, ADIFF, MDW, LIP, ANEU, GFR #### [address] [address] Eosinophil, Absolute 0.2 10 3/mcL Normal 0.0-0.4 [facility] ([place]) Comment on above: Performed By: #### C BC, CMP, ADIFF, MDW, LIP, ANEU, GFR #### [address] [address] Eosinophils/100 WBC (Bld) 2.4 % Normal 0.0-7.0 [facility] ([place]) Comment on above: Performed By: #### C BC, CMP, ADIFF, MDW, LIP, ANEU, GFR #### [address] [address] Lymphocyte, Absolute 2.8 10 3/mcL Normal 0.8-3.9 [facility] ([place]) Comment on above: Performed By: #### C BC, CMP, ADIFF, MDW, LIP, ANEU, GFR #### [address] [address] Lymphocytes/100 WBC (Bld) 32.1 % Normal 10.0-50.0 [facility] ([place]) Comment on above: Performed By: #### C BC, CMP, ADIFF, MDW, LIP, ANEU, GFR #### [address] [address] Monocyte, Absolute 0.6 10 3/mcL Normal 0.2-1.0 [facility] ([place]) Comment on above: Performed By: #### C BC, CORNELIA, KLARISSA, ANURAG, LIP, ANEU, GFR #### [address] [address] Monocytes/100 WBC (Bld) 6.7 % Normal 1.7-13.0 [facility] ([place]) Comment on above: Performed By: #### C BC, CORNELIA, ANURAG CYR, LIP, ANEU, GFR #### [address] [address] Neutrophils/100 WBC (Bld) 58.6 % Normal 37.0-80.0 [facility] ([place]) Comment on above: Performed By: #### C BC, CORNELIA, KLARISSA, ANURAG, LIP, ANEU, GFR #### [address] [address] .GFRon 06-28-2023 GFR 110 ml/min/1.73sqm Normal [facility] ([place] Comment on above: Result Comment: GFR Population [...] CORNELIA, ANURAG CYR, LIP, ANEU, GFR #### [address] [address] GFR Non- 91 ml/min/1.73sqm Normal [facility] ([place] Comment on above: Result Comment: GFR Population [...] CMP, KLARISSA, MDW, LIP, ANEU, GFR #### [place] [id number] .MDWon 06-28-2023 Monocyte Distribution Width 20.24 High 0.00-20.00 [facility] ([place] Comment on above: Result Comment: For adults in ED, MDW>20.0 may be associated with a higher risk of sepsis during the first 12hrs of hospital admission Performed By: #### C BC, CORNELIA, KLARISSA, MDW, LIP, ANEU, GFR #### [place] [id number] .NEUABSon 06-28-2023 Neutrophil, Absolute 5.2 10 3/mcL Normal 2.9-6.2 [facility] ([place]) Comment on above: Performed By: #### C BC, CMP, KLARISSA, MDW, LIP, ANEU, GFR #### [place] [id number] .Urinalysis Microscopic (AO) on 06-28-2023 UA Amorphus 2+ /hpf Normal [facility] ([place]) Comment on above: Performed By: #### C BC, CMP, KLARISSA, MDW, LIP, ANEU, GFR #### [place] [id number] UA Mucous Trace Normal [facility] ([place] Comment on above: Performed By: #### C BC, CMP, ADJAN, MDW, LIP, ANEU, GFR #### [place] [phone] UA RBC None Seen Normal None Seen [facility] ([place] Comment on above: Performed By: #### C BC, CMP, ADIFF, MDW, LIP, ANEU, GFR #### [address] [address] UA Squam Epithelial None Seen Normal None Seen [facility] ([place] Comment on above: Performed By: #### C BC, CMP, ADIFF, MDW, LIP, ANEU, GFR #### [address] [address] UA WBC None Seen Normal None Seen [facility] ([place] Comment on above: Performed By: #### C BC, CMP, ADIFF, MDW, LIP, ANEU, GFR #### [address] [address] CBCon 06-28-2023 Erythrocyte distribution width (RBC) [Ratio] 13.5 % Normal 11.5-14.5 [facility] ([place] Comment on above: Performed By: #### C BC, CMP, ADIFF, MDW, LIP, ANEU, GFR #### [address] [address] Hematocrit (Bld) [Volume fraction] 44.3 % Normal 42.0-52.0 [facility] ([place] Comment on above: Performed By: #### C BC, CMP, ADIFF, MDW, LIP, ANEU, GFR #### [address] [address] Hgb 15.4 G/dL Normal 14.0-18.0 [facility] ([place] Comment on above: Performed By: #### C BC, CMP, ADIFF, MDW, LIP, ANEU, GFR #### [address] [address] MCH (RBC) [Entitic mass] 31.5 pg High 27.0-31.2 [facility] ([place] Comment on above: Performed By: #### C BC, CMP, ADIFF, MDW, LIP, ANEU, GFR #### [place] [id number] MCHC 34.8 G/dL Normal 31.8-35.4 [facility] ([place] Comment on above: Performed By: #### C LANI, CORNELIA, KLARISSA, W, LIP, ANEU, GFR #### [address] [address] MCV (RBC) [Entitic vol] 90.6 fL Normal 80.0-94.0 [facility] ([place] Comment on above: Performed By: #### C BC, CORNELIA, KLARISSA, W, LIP, ANEU, GFR #### [address] [address] Platelet 294 10 3/mcL Normal 130-400 [facility] ([place]) Comment on above: Performed By: #### C LANI, CORNELIA, KLARISSA, ANURAG, LIP, ANEU, GFR #### [address] [address] Platelet mean volume (Bld) [Entitic vol] 7.2 fL Low 7.4-10.4 [facility] ([place] Comment on above: Performed By: #### C LANI, CORNELIA, KLARISSA, W, LIP, ANEU, GFR #### [address] [address] RBC 4.89 10 6/mcL Normal 4.04-6.13 [facility] ([place]) Comment on above: Performed By: #### C LANI, CORNELIA, ANURAG CYR, LIP, ANEU, GFR #### [place] [phone] WBC 8.8 10 3/mcL Normal 4.6-10.8 [facility] ([place] Comment on above: Performed By: #### C LANI, CORNELIA, KLARISSA, W, LIP, ANEU, GFR #### [place] [phone] CMPon 06-28-2023 Albumin Level 3.3 G/dL Low 3.5-5.0 [facility] ([place] Comment on above: Performed By: #### C BC, CMP, ADIFF, MDW, LIP, ANEU, GFR #### [address] [address] Albumin/Globulin [Mass ratio] 0.9 {ratio} Low 1.1-2.5 [facility] ([place] Comment on above: Performed By: #### C BC, CMP, ADIFF, MDW, LIP, ANEU, GFR #### [address] [address] ALP [Catalytic activity/Vol] 46 U/L Normal 40-135 [facility] ([place] Comment on above: Performed By: #### C BC, CMP, ADIFF, MDW, LIP, ANEU, GFR #### [address] [address] ALT [Catalytic activity/Vol] 31 U/L Normal 16-63 [facility] ([place] Comment on above: Performed By: #### C BC, CMP, ADIFF, MDW, LIP, ANEU, GFR #### [address] [address] AST [Catalytic activity/Vol] 16 U/L Normal 10-40 [facility] ([place] Comment on above: Performed By: #### C BC, CMP, ADIFF, MDW, LIP, ANEU, GFR #### [address] [address] Bili Total 0.3 mg/dL Normal 0.2-1.0 [facility] ([place] Comment on above: Result Comment: Use of this assay is not recommended for patients undergoing treatment with eltrombopag due to the potential for falsely elevated results. Performed By: #### C BC, CMP, ADIFF, MDW, LIP, ANEU, GFR #### [address] [address] BUN/Creatinine Ratio 13 ratio Normal 7-27 [facility] ([place]) Comment on above: Performed By: #### C BC, CMP, ADIFF, MDW, LIP, ANEU, GFR #### [address] [address] Calcium [Mass/Vol] 9.1 mg/dL Normal 8.4-10.2 [facility] ([place] Comment on above: Performed By: #### C BC, CMP, ADIFF, MDW, LIP, ANEU, GFR #### [address] [address] Chloride [Moles/Vol] 103 mmol/L Normal 98-107 [facility] ([place] Comment on above: Performed By: #### C BC, CMP, ADIFF, MDW, LIP, ANEU, GFR #### [address] [address] CO2 [Moles/Vol] 30 mmol/L High 22-29 [facility] ([place] Comment on above: Performed By: #### C BC, CMP, ADIFF, MDW, LIP, ANEU, GFR #### [address] [address] Creatinine [Mass/Vol] 0.91 mg/dL Normal 0.70-1.30 [facility] ([place] Comment on above: Performed By: #### C BC, CMP, ADIFF, MDW, LIP, ANEU, GFR #### [address] [address] Electrolyte Balance 6.0 mEq/L Normal 4.0-15.0 [facility] ([place] Comment on above: Performed By: #### C BC, CMP, ADIFF, MDW, LIP, ANEU, GFR #### [address] [address] Globulin 3.5 G/dL Normal [facility] ([place] Comment on above: Performed By: #### C BC, CMP, ADIFF, MDW, LIP, ANEU, GFR #### [address] [address] Glucose [Mass/Vol] 137 mg/dL High 70-105 [facility] ([place] Comment on above: Performed By: #### C BC, CMP, ADIFF, MDW, LIP, ANEU, GFR #### [address] [address] Potassium [Moles/Vol] 3.8 mmol/L Normal 3.5-5.1 [facility] ([place] Comment on above: Performed By: #### C BC, CMP, KLARISSA, MDW, LIP, ANEU, GFR #### [address] [address] Sodium [Moles/Vol] 139 mmol/L Normal 136-145 [facility] ([place] Comment on above: Performed By: #### C BC, CMP, KLARISSA, MDW, LIP, ANEU, GFR #### [address] [address] Total Protein 6.8 G/dL Normal 6.4-8.2 [facility] ([place] Comment on above: Performed By: #### C BC, CMP, ADJAN, MDW, LIP, ANEU, GFR #### [address] [address] Urea nitrogen [Mass/Vol] 12 mg/dL Normal 7-18 [facility] ([place] Comment on above: Performed By: #### C BC, CMP, KLARISSA, MDW, LIP, ANEU, GFR #### [address] [address] [address] ABD/PELVIS W/ IV CONTRAST ONLYon 06-28-2023 [...] 06/28/2023 4:25:43 PM Ordering Provider: YOUNG Nelson [facility] ([place]) LABORATORYOrdered By: Becka Artis on 06-28-2023 Appearance [...] Lactic Acid Lvl 1.4 mmol/L Normal 0.4-2.0 [facility] ([place]) Comment on above: Performed By: #### L AC #### [address] [address] LIPon 06-28-2023 Lipase Level 28 U/L Normal 16-77 [facility] ([place]) Comment on above: Performed By: #### C LANI, CORNELIA, ANURAG CYR, LIP, ANEU, GFR #### [address] [address] No Panel Informationon 06-28 Microscopic examination of blood, culture Culture has been received in lab and is no growth to date. Routine cultures are held for 5 days. [facility] UAon 06-28-2023 Color (U) Yellow Normal [facility] ([place]) Comment on above: Performed By: #### C LANI, CORNELIA, ANURAG CYR, LIP, ANEU, GFR #### [address] [address] Glucose (U) [Mass/Vol] Negative Normal Negative [facility] ([place]) Comment on above: Performed By: #### C LANI, CORNELIA, ANURAG CYR, LIP, ANEU, GFR #### [address] [address] Ketones Ql (U) Negative Normal [facility] ([place]) Comment on above: Performed By: #### C BC, CORNELIA, KLARISSA, ANURAG, LIP, ANEU, GFR #### [address] [address] UA Appear Slightly Cloudy Abnormal Clear [facility] ([place] Comment on above: Performed By: #### C LANI, CORNELIA, ANURAG CYR, LIP, ANEU, GFR #### [address] [address] UA Blood Negative Normal Negative [facility] ([place] Comment on above: Performed By: #### C BC, CMP, KLARISSA, ANURAG, LIP, ANEU, GFR #### [address] [address] UA Leuk Est Negative Normal Negative [facility] ([place] Comment on above: Performed By: #### C LANI, CORNELIA, ANURAG CYR, LIP, ANEU, GFR #### [address] [address] UA Nitrite Negative Normal Negative [facility] ([place] Comment on above: Performed By: #### C BC, CMP, ANURAG CYR, LIP, ANEU, GFR #### [address] [address] UA pH 7.0 Normal 5.0 - 8.0 [facility] ([place] Comment on above: Performed By: #### C BC, CORNELIA, ANURAG CYR, LIP, ANEU, GFR #### [address] [address] UA Protein Negative Normal Negative [facility] ([place] Comment on above: Performed By: #### C BC, CMP, ANURAG CYR, LIP, ANEU, GFR #### [address] [address] UA Spec Grav 1.020 Normal 1.015-1.025 [facility] ([place] Comment on above: Performed By: #### C BC, CMP, ANURAG CYR, LIP, ANEU, GFR #### [address] [address] UA Specimen Type Clean Catch Normal [facility] ([place] Comment on above: Performed By: #### C BC, CMP, ANURAG CYR, LIP, ANEU, GFR #### [facility] [address] [place], [place] [address] UA Urobilinogen 0.2 E.U./dL Normal 0.2-1.0 [facility] ([place] Comment on above: Performed By: #### C LANI, CORNELIA, ANURAG CYR, LIP, ANEU, GFR #### [facility] [address] [place], [place] [address] Urobilinogen (U) [Mass/Vol] Negative Normal Negative [facility] ([place] Comment on above: Performed By: #### C LANI, CORNELIA, ANURAG CYR, LIP, ANEU, GFR #### [facility] [address] [place], [place] [address] CNPNon 06-25-2023 CNPN Telephone (GENN) PATRICK KOROMA ([id number]) 1980 M Date Time Provider Department 06/25/23 DARIN MILLER During your visit today, we recorded the following information about you: Darin Miller OCCA 06/25/2023 12:52 PM Signed Reviewed chart for clinic prep. Patient has recent CT in [facility]. Obtained operative reports from [facility], sent for scanningPHILLIP StevensonPMAR Allergies As of [...] disorder (HCC) [R56.1] 10/23/2016 Encounter Status:Closed by DARIN MILLER on 06/25/23 Normal [facility] .Auto Diffon 06-08-2023 Basophil, Absolute 0.1 10 3/mcL Normal 0.0-0.2 [facility] ([place] Comment on above: Performed By: #### C LANI, KLARISSA LOCKE MDW, LIP, ANEU, GFR #### [address] [address] Basophils/100 WBC (Bld) 1.2 % Normal 0.0-2.5 A [facility] ([place] Comment on above: Performed By: #### C CORNELIA GARIBAY ADIFF, MDW, LIP, ANEU, GFR #### [address] [address] Eosinophil, Absolute 0.2 10 3/mcL Normal 0.0-0.4 [facility] ([place] Comment on above: Performed By: #### C LANI, KLARISSA LOCKE MDW, LIP, ANEU, GFR #### [address] [address] Eosinophils/100 WBC (Bld) 2.1 % Normal 0.0-7.0 [facility] ([place] Comment on above: Performed By: #### C LANI, CORNELIA, ANURAG CYR, LIP, ANEU, GFR #### [address] [address] Lymphocyte, Absolute 2.8 10 3/mcL Normal 0.8-3.9 [facility] ([place] Comment on above: Performed By: #### C BC, CMP, ADIFF, MDW, LIP, ANEU, GFR #### [address] [address] Lymphocytes/100 WBC (Bld) 26.1 % Normal 10.0-50.0 [facility] ([place] Comment on above: Performed By: #### C BC, CMP, ADIFF, MDW, LIP, ANEU, GFR #### [address] [address] Monocyte, Absolute 0.6 10 3/mcL Normal 0.2-1.0 [facility] ([place] Comment on above: Performed By: #### C BC, CMP, ADIFF, MDW, LIP, ANEU, GFR #### [address] [address] Monocytes/100 WBC (Bld) 5.8 % Normal 1.7-13.0 [facility] ([place] Comment on above: Performed By: #### C BC, CMP, ADIFF, MDW, LIP, ANEU, GFR #### [address] [address] Neutrophils/100 WBC (Bld) 64.8 % Normal 37.0-80.0 [facility] ([place] Comment on above: Performed By: #### C BC, CMP, ADIFF, MDW, LIP, ANEU, GFR #### [address] [address] .GFRon 06-08-2023 GFR 124 ml/min/1.73sqm Normal [facility] ([place] Comment on above: Result Comment: GFR Population [...] CMP, ADIFF, MDW, LIP, ANEU, GFR #### [address] [address] GFR Non- 102 ml/min/1.73sqm Normal [facility] ([place] Comment on above: Result Comment: GFR Population [...] CMP, ADIFF, MDW, LIP, ANEU, GFR #### [address] [address] .MDWon 06-08-2023 Monocyte Distribution Width 18.49 Normal 0.00-20.00 [facility] ([place] Comment on above: Result Comment: For ED adult patients suspected of sepsis, MDW<=20.0 does not rule out sepsis or risk of sepsis Performed By: #### C BC, CMP, ADIFF, MDW, LIP, ANEU, GFR #### [address] [address] .NEUABSon 06-08-2023 Neutrophil, Absolute 6.9 10 3/mcL High 2.9-6.2 [facility] ([place] Comment on above: Performed By: #### C BC, CMP, ADIFF, MDW, LIP, ANEU, GFR #### [address] [address] BMPon 06-08-2023 BUN/Creatinine Ratio 15 ratio Normal 7-27 [facility] ([place] Comment on above: Performed By: #### C BC, CMP, KLARISSA, MDW, LIP, ANEU, GFR #### [address] [address] Calcium [Mass/Vol] 8.9 mg/dL Normal 8.4-10.2 [facility] ([place] Comment on above: Performed By: #### C BC, CMP, ADJAN, MDW, LIP, ANEU, GFR #### [address] [address] Chloride [Moles/Vol] 104 mmol/L Normal 98-107 [facility] ([place] Comment on above: Performed By: #### C BC, CMP, ADJAN, MDW, LIP, ANEU, GFR #### [address] [address] CO2 [Moles/Vol] 26 mmol/L Normal 22-29 [facility] ([place] Comment on above: Performed By: #### C BC, CMP, ADJAN, MDW, LIP, ANEU, GFR #### [address] [address] Creatinine [Mass/Vol] 0.82 mg/dL Normal 0.70-1.30 [facility] ([place] Comment on above: Performed By: #### C BC, CMP, ADJAN, MDW, LIP, ANEU, GFR #### [address] [address] Electrolyte Balance 10.0 mEq/L Normal 4.0-15.0 [facility] ([place] Comment on above: Performed By: #### C BC, CMP, KLARISSA, MDW, LIP, ANEU, GFR #### [address] [address] Glucose [Mass/Vol] 110 mg/dL High 70-105 [facility] ([place] Comment on above: Performed By: #### C BC, CMP, ADIFF, MDW, LIP, ANEU, GFR #### [address] [address] Potassium [Moles/Vol] 4.2 mmol/L Normal 3.5-5.1 [facility] ([place] Comment on above: Performed By: #### C BC, CMP, ADIFF, MDW, LIP, ANEU, GFR #### [address] [address] Sodium [Moles/Vol] 140 mmol/L Normal 136-145 [facility] ([place] Comment on above: Performed By: #### C BC, CMP, ADIFF, MDW, LIP, ANEU, GFR #### [address] [address] Urea nitrogen [Mass/Vol] 12 mg/dL Normal 7-18 [facility] ([place] Comment on above: Performed By: #### C BC, CMP, ADIFF, MDW, LIP, ANEU, GFR #### [place] [id number] CBCon 06-08-2023 Erythrocyte distribution width (RBC) [Ratio] 13.6 % Normal 11.5-14.5 [facility] ([place] Comment on above: Performed By: #### C BC, CMP, ADIFF, MDW, LIP, ANEU, GFR #### [address] [address] Hematocrit (Bld) [Volume fraction] 43.4 % Normal 42.0-52.0 [facility] ([place] Comment on above: Performed By: #### C BC, CMP, ADIFF, MDW, LIP, ANEU, GFR #### [address] [address] Hgb 14.9 G/dL Normal 14.0-18.0 [facility] ([place] Comment on above: Performed By: #### C BC, CMP, ADIFF, MDW, LIP, ANEU, GFR #### [address] [address] MCH (RBC) [Entitic mass] 31.1 pg Normal 27.0-31.2 [facility] ([place] Comment on above: Performed By: #### C BC, CMP, ADIFF, MDW, LIP, ANEU, GFR #### [address] [address] MCHC 34.4 G/dL Normal 31.8-35.4 [facility] ([place] Comment on above: Performed By: #### C BC, CMP, ADIFF, MDW, LIP, ANEU, GFR #### [address] [address] MCV (RBC) [Entitic vol] 90.5 fL Normal 80.0-94.0 [facility] ([place] Comment on above: Performed By: #### C BC, CMP, ADIFF, MDW, LIP, ANEU, GFR #### [address] [address] Platelet 283 10 3/mcL Normal 130-400 [facility] ([place] Comment on above: Performed By: #### C BC, CMP, ADIFF, MDW, LIP, ANEU, GFR #### [address] [address] Platelet mean volume (Bld) [Entitic vol] 8.0 fL Normal 7.4-10.4 [facility] ([place] Comment on above: Performed By: #### C BC, CMP, ADIFF, MDW, LIP, ANEU, GFR #### [address] [address] RBC 4.80 10 6/mcL Normal 4.04-6.13 [facility] ([place]) Comment on above: Performed By: #### C BC, CMP, ADIFF, MDW, LIP, ANEU, GFR #### [address] [address] WBC 10.6 10 3/mcL Normal 4.6-10.8 [facility] ([place]) Comment on above: Performed By: #### C BC, CMP, ADIFF, MDW, LIP, ANEU, GFR #### [address] [address] LABORATORYOrdered By: SYSTEM SYSTEM on 12-24-2023 Basophil, Absolute 0.1 103/mcL Normal 0.0 - [...] SS .GFRon 05-17-2023 GFR 111 ml/min/1.73sqm Normal [facility] ([place] Comment on above: Result Comment: GFR Population [...] CMP, KLARISSA, W, LIP, ANEU, GFR #### [place] [id number] GFR Non- 92 ml/min/1.73sqm Normal [facility] ([place] Comment on above: Result Comment: GFR Population [...] CMP, ADIFF, MDW, LIP, ANEU, GFR #### [address] [address] BMPon 05-17-2023 BUN/Creatinine Ratio 14 ratio Normal 7-27 [facility] ([place] Comment on above: Performed By: #### C BC, CMP, KLARISSA, MDW, LIP, ANEU, GFR #### [address] [address] Calcium [Mass/Vol] 9.5 mg/dL Normal 8.4-10.2 [facility] ([place] Comment on above: Performed By: #### C BC, CMP, KLARISSA, MDW, LIP, ANEU, GFR #### [address] [address] Chloride [Moles/Vol] 103 mmol/L Normal 98-107 [facility] ([place] Comment on above: Performed By: #### C BC, CMP, KLARISSA, MDW, LIP, ANEU, GFR #### [address] [address] CO2 [Moles/Vol] 24 mmol/L Normal 22-29 [facility] ([place] Comment on above: Performed By: #### C BC, CMP, KLARISSA, MDW, LIP, ANEU, GFR #### [address] [address] Creatinine [Mass/Vol] 0.90 mg/dL Normal 0.70-1.30 [facility] ([place] Comment on above: Performed By: #### C BC, CMP, ADIFF, MDW, LIP, ANEU, GFR #### [address] [address] Electrolyte Balance 15.0 mEq/L Normal 4.0-15.0 [facility] ([place] Comment on above: Performed By: #### C BC, CMP, KLARISSA, MDW, LIP, ANEU, GFR #### [address] [address] Glucose [Mass/Vol] 98 mg/dL Normal 70-105 [facility] ([place] Comment on above: Performed By: #### C BC, CMP, KLARISSA, W, LIP, ANEU, GFR #### [address] [address] Potassium [Moles/Vol] 4.6 mmol/L Normal 3.5-5.1 [facility] ([place] Comment on above: Performed By: #### C BC, CORNELIA, KLARISSA, W, LIP, ANEU, GFR #### [address] [address] Sodium [Moles/Vol] 142 mmol/L Normal 136-145 [facility] ([place] Comment on above: Performed By: #### C BC, CORNELIA, KLARISSA, W, LIP, ANEU, GFR #### [address] [address] Urea nitrogen [Mass/Vol] 13 mg/dL Normal 7-18 [facility] ([place] Comment on above: Performed By: #### C BC, CORNELIA, KLARISSA, W, LIP, ANEU, GFR #### [address] [address] [address] ABD/PELVIS W/ IV CONTRAST ONLYon 05-17-2023 [...] the resident's findings and interpretation. Interpreted by: Chloe Luke Preliminary Report By: Laura Mabry Electronically signed By Chloe Luke Dictated Date: 05/16/2023 9:41:49 PM Prelim Date: 05/16/2023 10:07:10 PM Sign Date: 05/16/2023 10:45:51 PM Ordering Provider: TOI Nelson [facility] ([place]) .Auto Diffon 05-16-2023 Basophil, Absolute 0.1 10 3/mcL Normal 0.0-0.2 [facility] ([place] Comment on above: Performed By: #### C CORNELIA GARIBAY ADIFF, MDW, LIP, ANEU, GFR #### [place] [address] [place], [place] [address] Basophils/100 WBC (Bld) 1.1 % Normal 0.0-2.5 A [facility] ([place] Comment on above: Performed By: #### C BC, CMP, ADIFF, MDW, LIP, ANEU, GFR #### [address] [address] Eosinophil, Absolute 0.3 10 3/mcL Normal 0.0-0.4 [facility] ([place] Comment on above: Performed By: #### C BC, CMP, ADIFF, MDW, LIP, ANEU, GFR #### [address] [address] Eosinophils/100 WBC (Bld) 1.9 % Normal 0.0-7.0 [facility] ([place] Comment on above: Performed By: #### C BC, CMP, ADIFF, MDW, LIP, ANEU, GFR #### [address] [address] Lymphocyte, Absolute 3.4 10 3/mcL Normal 0.8-3.9 [facility] ([place] Comment on above: Performed By: #### C BC, CMP, ADIFF, MDW, LIP, ANEU, GFR #### [address] [address] Lymphocytes/100 WBC (Bld) 25.6 % Normal 10.0-50.0 [facility] ([place] Comment on above: Performed By: #### C BC, CMP, ADIFF, MDW, LIP, ANEU, GFR #### [address] [address] Monocyte, Absolute 0.8 10 3/mcL Normal 0.2-1.0 [facility] ([place] Comment on above: Performed By: #### C BC, CMP, ADIFF, MDW, LIP, ANEU, GFR #### [address] [address] Monocytes/100 WBC (Bld) 6.0 % Normal 1.7-13.0 [facility] ([place] Comment on above: Performed By: #### C BC, CMP, ADIFF, MDW, LIP, ANEU, GFR #### [address] [address] Neutrophils/100 WBC (Bld) 65.4 % Normal 37.0-80.0 [facility] ([place] Comment on above: Performed By: #### C BC, CMP, KLARISSA, MDW, LIP, ANEU, GFR #### [address] [address] .GFRon 05-16-2023 GFR 98 ml/min/1.73sqm Normal [facility] ([place] Comment on above: Result Comment: GFR Population [...] CMP, KLARISSA, MDW, LIP, ANEU, GFR #### [address] [address] GFR Non- 81 ml/min/1.73sqm Normal [facility] ([place] Comment on above: Result Comment: GFR Population [...] CMP, ADJAN, MDW, LIP, ANEU, GFR #### [address] [address] .MDWon 05-16-2023 Monocyte Distribution Width 17.52 Normal 0.00-20.00 [facility] ([place]) Comment on above: Result Comment: For ED adult patients suspected of sepsis, MDW<=20.0 does not rule out sepsis or risk of sepsis Performed By: #### C BC, CMP, ADIFF, MDW, LIP, ANEU, GFR #### [place] [id number] .NEUABSon 05-16-2023 Neutrophil, Absolute 8.7 10 3/mcL High 2.9-6.2 [facility] ([place]) Comment on above: Performed By: #### C BC, CMP, ADIFF, MDW, LIP, ANEU, GFR #### [place] [address] CBCon 05-16-2023 Erythrocyte distribution width (RBC) [Ratio] 13.4 % Normal 11.5-14.5 [facility] ([place]) Comment on above: Performed By: #### C BC, CMP, ADIFF, MDW, LIP, ANEU, GFR #### [place] [address] Hematocrit (Bld) [Volume fraction] 45.6 % Normal 42.0-52.0 [facility] ([place]) Comment on above: Performed By: #### C BC, CMP, ADIFF, MDW, LIP, ANEU, GFR #### [place] [address] Hgb 15.6 G/dL Normal 14.0-18.0 [facility] ([place]) Comment on above: Performed By: #### C BC, CMP, ADIFF, MDW, LIP, ANEU, GFR #### [place] [address] MCH (RBC) [Entitic mass] 30.9 pg Normal 27.0-31.2 [facility]) Comment on above: Performed By: #### C BC, CMP, ADIFF, MDW, LIP, ANEU, GFR #### [place] [address] MCHC 34.1 G/dL Normal 31.8-35.4 [facility] ([place]) Comment on above: Performed By: #### C LANI, KLARISSA LOCKE MDW, LIP, ANEU, GFR #### [address] [address] MCV (RBC) [Entitic vol] 90.6 fL Normal 80.0-94.0 [facility] ([place]) Comment on above: Performed By: #### C LANI, CORNELIA, KLARISSA, ANURAG, LIP, ANEU, GFR #### [address] [address] Platelet 303 10 3/mcL Normal 130-400 [facility] ([place]) Comment on above: Performed By: #### C LANI, KLARISSA LOCKE MDW, LIP, ANEU, GFR #### [address] [address] Platelet mean volume (Bld) [Entitic vol] 7.3 fL Low 7.4-10.4 [facility] ([place]) Comment on above: Performed By: #### C CORNELIA GARIBAY ADIFF, MDW, LIP, ANEU, GFR #### [address] [address] RBC 5.04 10 6/mcL Normal 4.04-6.13 [facility] ([place]) Comment on above: Performed By: #### C CORNELIA GARIBAY ADIFF, MDW, LIP, ANEU, GFR #### [address] [address] WBC 13.3 10 3/mcL High 4.6-10.8 [facility] ([place]) Comment on above: Performed By: #### C CORNELIA GARIBAY ADIFF, MDW, LIP, ANEU, GFR #### [address] [address] CMPon 05-16-2023 Albumin Level 3.4 G/dL Low 3.5-5.0 [facility] ([place] Comment on above: Performed By: #### C BC, CMP, ADIFF, MDW, LIP, ANEU, GFR #### [address] [address] Albumin/Globulin [Mass ratio] 0.9 {ratio} Low 1.1-2.5 [facility] ([place] Comment on above: Performed By: #### C BC, CMP, ADIFF, MDW, LIP, ANEU, GFR #### [address] [address] ALP [Catalytic activity/Vol] 47 U/L Normal 40-135 [facility] ([place] Comment on above: Performed By: #### C BC, CMP, ADIFF, MDW, LIP, ANEU, GFR #### [address] [address] ALT [Catalytic activity/Vol] 23 U/L Normal 16-63 [facility] ([place] Comment on above: Performed By: #### C BC, CMP, ADIFF, MDW, LIP, ANEU, GFR #### [address] [address] AST [Catalytic activity/Vol] 21 U/L Normal 10-40 [facility] ([place] Comment on above: Performed By: #### C BC, CMP, ADIFF, MDW, LIP, ANEU, GFR #### [address] [address] Bili Total 0.2 mg/dL Normal 0.2-1.0 [facility] ([place] Comment on above: Result Comment: Use of this assay is not recommended for patients undergoing treatment with eltrombopag due to the potential for falsely elevated results. Performed By: #### C BC, CMP, ADIFF, MDW, LIP, ANEU, GFR #### [address] [address] BUN/Creatinine Ratio 14 ratio Normal 7-27 [facility] ([place] Comment on above: Performed By: #### C BC, CMP, ADIFF, MDW, LIP, ANEU, GFR #### [address] [address] Calcium [Mass/Vol] 9.3 mg/dL Normal 8.4-10.2 [facility] ([place] Comment on above: Performed By: #### C BC, CMP, ADIFF, MDW, LIP, ANEU, GFR #### [address] [address] Chloride [Moles/Vol] 96 mmol/L Low 98-107 [facility] ([place] Comment on above: Performed By: #### C BC, CMP, ADIFF, MDW, LIP, ANEU, GFR #### [address] [address] CO2 [Moles/Vol] 24 mmol/L Normal 22-29 [facility] ([place] Comment on above: Performed By: #### C BC, CMP, ADIFF, MDW, LIP, ANEU, GFR #### [address] [address] Creatinine [Mass/Vol] 1.00 mg/dL Normal 0.70-1.30 [facility] ([place] Comment on above: Performed By: #### C BC, CMP, ADIFF, MDW, LIP, ANEU, GFR #### [address] [address] Electrolyte Balance 6.0 mEq/L Normal 4.0-15.0 [facility] ([place]) Comment on above: Performed By: #### C BC, CMP, ADIFF, MDW, LIP, ANEU, GFR #### [address] [address] Globulin 3.8 G/dL Normal [facility] ([place] Comment on above: Performed By: #### C BC, CMP, ADIFF, MDW, LIP, ANEU, GFR #### [address] [address] Glucose [Mass/Vol] 121 mg/dL High 70-105 [facility] ([place] Comment on above: Performed By: #### C BC, CMP, ADIFF, MDW, LIP, ANEU, GFR #### [address] [address] Potassium [Moles/Vol] 3.8 mmol/L Normal 3.5-5.1 [facility] ([place] Comment on above: Performed By: #### C BC, CMP, KLARISSA, W, LIP, ANEU, GFR #### [id number] [place], [place] [address] Sodium [Moles/Vol] 126 mmol/L Low 136-145 [facility] ([place] Comment on above: Performed By: #### C BC, CORNELIA, KLARISSA, W, LIP, ANEU, GFR #### [address] [place], [place] [address] Total Protein 7.2 G/dL Normal 6.4-8.2 [facility] ([place] Comment on above: Performed By: #### C BC, CMP, KLARISSA, W, LIP, ANEU, GFR #### [id number] [place], [place] [address] Urea nitrogen [Mass/Vol] 14 mg/dL Normal 7-18 [facility] ([place] Comment on above: Performed By: #### C BC, CORNELIA, KLARISSA, MDW, LIP, ANEU, GFR #### [address] [address] LABORATORYOrdered By: SYSTEM SYSTEM on 05-16-2023 Albumin [...] Level 20 U/L Normal 16-77 [facility] ([place] Comment on above: Performed By: #### C BC, CMP, KLARISSA, MDW, LIP, ANEU, GFR #### [address] [address] UAon 05-16-2023 Color (U) Yellow Normal [facility] ([place] Comment on above: Performed By: #### U A #### [address] [address] Glucose (U) [Mass/Vol] Negative Normal Negative [facility] ([place] Comment on above: Performed By: #### U A #### [address] [address] Ketones Ql (U) Negative Normal Negative [facility] [place] Comment [place]: Performed By: #### U A #### [address] [address] UA Appear Clear Normal Clear [facility] ([place] Comment on above: Performed By: #### U A #### [address] [address] UA Blood Negative Normal Negative [facility] ([place] Comment on above: Performed By: #### U A #### [address] [address] UA Leuk Est Negative Normal Negative [facility] ([place]) Comment on above: Performed By: #### U A #### [address] [address] UA Nitrite Negative Normal Negative [facility] ([place] Comment on above: Performed By: #### U A #### [address] [address] UA pH 6.0 Normal 5.0 - 8.0 [facility]) Comment on above: Performed By: #### U A #### [address] [address] UA Protein Negative Normal Negative [facility] ([place] Comment on above: Performed By: #### U A #### [address] [address] UA Spec Grav >=1.030 Abnormal 1.015-1.025 [facility] ([place] Comment on above: Performed By: #### U A #### [address] [address] UA Specimen Type Clean Catch Normal [facility] ([place] Comment on above: Performed By: #### U A #### [address] [address] UA Urobilinogen 0.2 E.U./dL Normal 0.2-1.0 [facility] ([place] Comment on above: Performed By: #### U A #### [address] [address] Urobilinogen (U) [Mass/Vol] Negative Normal Negative [facility] ([place] Comment on above: Performed By: #### U A #### [address] [address] .Auto Diffon 02-12-2023 Basophil, Absolute 0.1 10 3/mcL Normal 0.0-0.2 [facility] ([place] Comment on above: Performed By: #### C CORNELIA GARIBAY ADIFF, MDW, LIP, ANEU, GFR #### [address] [address] Basophils/100 WBC (Bld) 1.2 % Normal 0.0-2.5 [facility] ([place] Comment on above: Performed By: #### C CORNELIA GARIBAY ADIFF, MDW, LIP, ANEU, GFR #### [address] [address] Eosinophil, Absolute 0.1 10 3/mcL Normal 0.0-0.4 [facility] ([place] Comment on above: Performed By: #### C BC, CMP, ADIFF, MDW, LIP, ANEU, GFR #### [address] [address] Eosinophils/100 WBC (Bld) 1.4 % Normal 0.0-7.0 [facility] ([place] Comment on above: Performed By: #### C BC, CMP, ADIFF, MDW, LIP, ANEU, GFR #### [address] [address] Lymphocyte, Absolute 3.3 10 3/mcL Normal 0.8-3.9 [facility] ([place] Comment on above: Performed By: #### C BC, CMP, ADIFF, MDW, LIP, ANEU, GFR #### [address] [address] Lymphocytes/100 WBC (Bld) 35.7 % Normal 10.0-50.0 [facility] ([place] Comment on above: Performed By: #### C BC, CMP, ADIFF, MDW, LIP, ANEU, GFR #### [address] [address] Monocyte, Absolute 0.5 10 3/mcL Normal 0.2-1.0 [facility] ([place] Comment on above: Performed By: #### C BC, CMP, ADIFF, MDW, LIP, ANEU, GFR #### [address] [address] Monocytes/100 WBC (Bld) 5.1 % Normal 1.7-13.0 [facility] ([place] Comment on above: Performed By: #### C BC, CMP, ADIFF, MDW, LIP, ANEU, GFR #### [address] [address] Neutrophils/100 WBC (Bld) 56.6 % Normal 37.0-80.0 [facility] ([place] Comment on above: Performed By: #### C BC, CMP, ADIFF, MDW, LIP, ANEU, GFR #### [address] [address] .GFRon 02-12-2023 GFR Non- 121 ml/min/1.73sqm Normal [facility] ([place] Comment on above: Result Comment: GFR Population [...] CORNELIA, ANURAG CYR, LIP, ANEU, GFR #### [address] [address] GFR 146 ml/min/1.73sqm Normal [facility] ([place] Comment on above: Result Comment: GFR Population [...] CORNELIA, ANURAG CYR, LIP, ANEU, GFR #### [address] [address] .MDWon 02-12-2023 Monocyte Distribution Width 19.74 Normal 0.00-20.00 [facility] ([place] Comment on above: Result Comment: For ED adult patients suspected of sepsis, MDW<=20.0 does not rule out sepsis or risk of sepsis Performed By: #### C BC, CMP, KLARISSA, MDW, LIP, ANEU, GFR #### [address] [address] .NEUABSon 02-12-2023 Neutrophil, Absolute 5.2 10 3/mcL Normal 2.9-6.2 [facility] ([place] Comment on above: Performed By: #### C BC, CMP, ADIFF, MDW, LIP, ANEU, GFR #### [place] [address] CBCon 02-12-2023 Erythrocyte distribution width (RBC) [Ratio] 14.0 % Normal 11.5-14.5 [facility] ([place] Comment on above: Order Comment: clott ed Performed By: #### C BC, CMP, ADJAN, MDW, LIP, ANEU, GFR #### [place] [address] Hematocrit (Bld) [Volume fraction] 44.7 % Normal 42.0-52.0 [facility] ([place] Comment on above: Order Comment: clott ed Performed By: #### C BC, CMP, ADJAN, MDW, LIP, ANEU, GFR #### [address] [address] Hgb 15.5 G/dL Normal 14.0-18.0 [facility] ([place] Comment on above: Order Comment: clott ed Performed By: #### C BC, CMP, ADIFF, MDW, LIP, ANEU, GFR #### [address] [address] MCH (RBC) [Entitic mass] 30.6 pg Normal 27.0-31.2 [facility] ([place] Comment on above: Order Comment: clott ed Performed By: #### C BC, CMP, ADIFF, MDW, LIP, ANEU, GFR #### [place] [address] MCHC 34.6 G/dL Normal 31.8-35.4 [facility] ([place] Comment on above: Order Comment: clott ed Performed By: #### C BC, CMP, KLARISSA, W, LIP, ANEU, GFR #### [address] [address] MCV (RBC) [Entitic vol] 88.4 fL Normal 80.0-94.0 [facility] ([place] Comment on above: Order Comment: clott ed Performed By: #### C BC, CMP, KLARISSA, MDW, LIP, ANEU, GFR #### [address] [address] Platelet 271 10 3/mcL Normal 130-400 [facility] ([place] Comment on above: Order Comment: clott ed Performed By: #### C BC, CMP, KLARISSA, MDW, LIP, ANEU, GFR #### [address] [address] Platelet mean volume (Bld) [Entitic vol] 7.2 fL Low 7.4-10.4 [facility] ([place] Comment on above: Order Comment: clott ed Performed By: #### C BC, CMP, KLARISSA, W, LIP, ANEU, GFR #### [address] [address] RBC 5.06 10 6/mcL Normal 4.04-6.13 [facility] ([place] Comment on above: Order Comment: clott ed Performed By: #### C BC, CMP, KLARISSA, W, LIP, ANEU, GFR #### [address] [address] WBC 9.3 10 3/mcL Normal 4.6-10.8 [facility] ([place] Comment on above: Order Comment: clott ed Performed By: #### C BC, CMP, KLARISSA, MDW, LIP, ANEU, GFR #### [address] [address] CMPon 02-12-2023 Albumin Level 3.2 G/dL Low 3.5-5.0 [facility] ([place] Comment on above: Performed By: #### C BC, CMP, ADJAN, MDW, LIP, ANEU, GFR #### [address] [address] Albumin/Globulin [Mass ratio] 0.8 {ratio} Low 1.1-2.5 [facility] ([place] Comment on above: Performed By: #### C BC, CMP, ADIFF, MDW, LIP, ANEU, GFR #### [address] [address] ALP [Catalytic activity/Vol] 40 U/L Normal 40-135 [facility] ([place] Comment on above: Performed By: #### C BC, CMP, ADIFF, MDW, LIP, ANEU, GFR #### [address] [address] ALT [Catalytic activity/Vol] 25 U/L Normal 16-63 [facility] ([place] Comment on above: Performed By: #### C BC, CMP, ADIFF, MDW, LIP, ANEU, GFR #### [address] [address] AST [Catalytic activity/Vol] 32 U/L Normal 10-40 [facility] ([place] Comment on above: Performed By: #### C BC, CMP, ADIFF, MDW, LIP, ANEU, GFR #### [address] [address] Bili Total 0.3 mg/dL Normal 0.2-1.0 [facility] ([place] Comment on above: Result Comment: Use of this assay is not recommended for patients undergoing treatment with eltrombopag due to the potential for falsely elevated results. Performed By: #### C BC, CMP, ADJAN, MDW, LIP, ANEU, GFR #### [address] [address] BUN/Creatinine Ratio 13 ratio Normal 7-27 [facility] ([place] Comment on above: Performed By: #### C BC, CMP, ADIFF, MDW, LIP, ANEU, GFR #### [address] [address] Calcium [Mass/Vol] 8.2 mg/dL Low 8.4-10.2 [facility] ([place] Comment on above: Performed By: #### C BC, CMP, KLARISSA, MDW, LIP, ANEU, GFR #### [address] [address] Chloride [Moles/Vol] 102 mmol/L Normal 98-107 [facility] ([place] Comment on above: Performed By: #### C BC, CMP, ADJAN, MDW, LIP, ANEU, GFR #### [address] [address] CO2 [Moles/Vol] 26 mmol/L Normal 22-29 [facility] ([place] Comment on above: Performed By: #### C BC, CMP, KLARISSA, MDW, LIP, ANEU, GFR #### [place] [id number] Creatinine [Mass/Vol] 0.71 mg/dL Normal 0.70-1.30 [facility] ([place] Comment on above: Performed By: #### C BC, CMP, KLARISSA, W, LIP, ANEU, GFR #### [address] [address] Electrolyte Balance 9.0 mEq/L Normal 4.0-15.0 [facility] ([place] Comment on above: Performed By: #### C BC, CMP, KLARISSA, MDW, LIP, ANEU, GFR #### [address] [address] Globulin 3.9 G/dL Normal [facility] ([place] Comment on above: Performed By: #### C BC, CMP, KLARISSA, W, LIP, ANEU, GFR #### [address] [address] Glucose [Mass/Vol] 118 mg/dL High 70-105 [facility] ([place] Comment on above: Performed By: #### C BC, CMP, KLARISSA, MDW, LIP, ANEU, GFR #### [address] [address] Potassium [Moles/Vol] 4.9 mmol/L Normal 3.5-5.1 [facility] ([place] Comment on above: Performed By: #### C BC, CMP, ADIFF, MDW, LIP, ANEU, GFR #### [address] [place], [place] [address] Sodium [Moles/Vol] 137 mmol/L Normal 136-145 [facility] ([place] Comment on above: Performed By: #### C BC, CMP, ADIFF, MDW, LIP, ANEU, GFR #### [address] [address] Total Protein 7.1 G/dL Normal 6.4-8.2 [facility] ([place]) Comment on above: Performed By: #### C BC, CMP, ADIFF, MDW, LIP, ANEU, GFR #### [address] [address] Urea nitrogen [Mass/Vol] 9 mg/dL Normal 7-18 [facility] ([place] Comment on above: Performed By: #### C BC, CMP, ADIFF, MDW, LIP, ANEU, GFR #### [address] [address] [address] ABD/PELVIS W/ IV CONTRAST ONLYon 02-12-2023 [...] resident's findings and interpretation. Interpreted by: Jorgito Etienen DO Preliminary Report By: Laura Mabry Electronically signed By Jorgito Etienne DO Dictated Date: 02/12/2023 7:28:23 PM Prelim Date: 02/12/2023 7:37:05 PM Sign Date: 02/12/2023 8:10:54 PM Ordering Provider: WOODROW MCALLISTER [facility] ([place]) LABORATORYOrdered By: SYSTEM SYSTEM on 02-12-2023 Albumin [...] Level 39 U/L Normal 16-77 [facility] ([place] Comment on above: Performed By: #### C LANI, CORNELIA, ANURAG CYR, LIP, ANEU, GFR #### [address] [address] TROPHSon 02-12-2023 Troponin I High Sensitivity 4.0 ng/L Normal 0.0-76.2 [facility] ([place] Comment on above: Performed By: #### C LANI, CORNELIA, KLARISSA, ANURAG, LIP, ANEU, GFR #### [address] [place], [place] [address] UAon 02-12-2023 Color (U) Yellow Normal [facility] ([place] Comment on above: Performed By: #### U A #### [facility] [address] [place], [place] [address] Glucose (U) [Mass/Vol] Negative Normal Negative [facility] ([place] Comment on above: Performed By: #### U A #### [address] [place], [place] [address] Ketones Ql (U) Negative Normal Negative [facility] [place] Comment on above: Performed By: #### U A #### [address] [place], [place] [address] UA Appear Clear Normal Clear [facility] ([place] Comment on above: Performed By: #### U A #### [address] [place], [place] [address] UA Blood Negative Normal Negative [facility] ([place] Comment on above: Performed By: #### U A #### [address] [place], [place] [address] UA Leuk Est Negative Normal Negative [facility] ([place] Comment on above: Performed By: #### U A #### [address] [place], [place] [address] UA Nitrite Negative Normal Negative [facility] ([place] Comment on above: Performed By: #### U A #### [address] [place], [place] [address] UA pH 7.0 Normal 5.0 - 8.0 [facility] ([place] Comment on above: Performed By: #### U A #### [address] [place], [place] [address] UA Protein Negative Normal Negative [facility] ([place] Comment on above: Performed By: #### U A #### [address] [place], [place] [address] UA Spec Grav 1.015 Normal 1.015-1.025 [facility] ([place] Comment on above: Performed By: #### U A #### [address] [place], [place] [address] UA Specimen Type Clean Catch Normal [facility] ([place] Comment on above: Performed By: #### U A #### [address] [place], [place] [address] UA Urobilinogen 0.2 E.U./dL Normal 0.2-1.0 [facility] ([place] Comment on above: Performed By: #### U A #### [address] [place], [place] [address] Urobilinogen (U) [Mass/Vol] Negative Normal Negative [facility] ([place] Comment on above: Performed By: #### U A #### [address] [place], [place] [address] .Auto Diffon 10-20-2022 Basophil, Absolute 0.1 10 3/mcL Normal 0.0-0.2 [facility] ([place] Comment on above: Performed By: #### C BC, CMP, ADIFF, MDW, LIP, ANEU, GFR #### [address] [address] Basophils/100 WBC (Bld) 1.1 % Normal 0.0-2.5 [facility] ([place] Comment on above: Performed By: #### C BC, CMP, ADIFF, MDW, LIP, ANEU, GFR #### [address] [address] Eosinophil, Absolute 0.1 10 3/mcL Normal 0.0-0.4 [facility] ([place] Comment on above: Performed By: #### C BC, CMP, ADIFF, MDW, LIP, ANEU, GFR #### [address] [address] Eosinophils/100 WBC (Bld) 1.7 % Normal 0.0-7.0 [facility] ([place] Comment on above: Performed By: #### C BC, CMP, ADIFF, MDW, LIP, ANEU, GFR #### [address] [address] Lymphocyte, Absolute 2.3 10 3/mcL Normal 0.8-3.9 [facility] ([place] Comment on above: Performed By: #### C BC, CMP, ADIFF, MDW, LIP, ANEU, GFR #### [address] [address] Lymphocytes/100 WBC (Bld) 26.4 % Normal 10.0-50.0 [facility] ([place] Comment on above: Performed By: #### C BC, CMP, ADJAN, MDW, LIP, ANEU, GFR #### [address] [address] Monocyte, Absolute 0.6 10 3/mcL Normal 0.2-1.0 [facility] ([place] Comment on above: Performed By: #### C BC, CMP, ADIFF, MDW, LIP, ANEU, GFR #### [address] [address] Monocytes/100 WBC (Bld) 6.9 % Normal 1.7-13.0 [facility] ([place] Comment on above: Performed By: #### C BC, CMP, ADIFF, MDW, LIP, ANEU, GFR #### [address] [address] Neutrophils/100 WBC (Bld) 63.9 % Normal 37.0-80.0 [facility] ([place] Comment on above: Performed By: #### C BC, CMP, KLARISSA, MDW, LIP, ANEU, GFR #### [address] [address] .GFRon 10-20-2022 GFR 100 ml/min/1.73sqm Normal [facility] ([place] Comment on above: Result Comment: GFR Population [...] CORNELIA, KLARISSA, W, LIP, ANEU, GFR #### [address] [address] GFR Non- 83 ml/min/1.73sqm Normal [facility] ([place] Comment on above: Result Comment: GFR Population [...] CORNELIA, KLARISSA, W, LIP, ANEU, GFR #### [address] [address] .MDWon 10-20-2022 Monocyte Distribution Width 16.96 Normal 0.00-20.00 [facility] ([place] Comment on above: Result Comment: For ED adult patients suspected of sepsis, MDW<=20.0 does not rule out sepsis or risk of sepsis Performed By: #### C CORNELIA GARIBAY, KLARISSA, W, LIP, ANEU, GFR #### [address] [address] .NEUABSon 10-20-2022 Neutrophil, Absolute 5.5 10 3/mcL Normal 2.9-6.2 [facility] ([place] Comment on above: Performed By: #### C LANI, CORNELIA, KLARISSA, W, LIP, ANEU, GFR #### [address] [address] CBCon 10-20-2022 Erythrocyte distribution width (RBC) [Ratio] 12.9 % Normal 11.5-14.5 [facility] ([place] Comment on above: Performed By: #### C BC, CMP, ADIFF, MDW, LIP, ANEU, GFR #### [address] [address] Hematocrit (Bld) [Volume fraction] 41.4 % Low 42.0-52.0 [facility] ([place] Comment on above: Performed By: #### C BC, CMP, ADIFF, MDW, LIP, ANEU, GFR #### [address] [address] Hgb 14.1 G/dL Normal 14.0-18.0 [facility] ([place] Comment on above: Performed By: #### C BC, CMP, ADIFF, MDW, LIP, ANEU, GFR #### [place] [address] MCH (RBC) [Entitic mass] 30.4 pg Normal 27.0-31.2 [facility] ([place] Comment on above: Performed By: #### C BC, CMP, ADIFF, MDW, LIP, ANEU, GFR #### [address] [address] MCHC 34.0 G/dL Normal 31.8-35.4 [facility] ([place] Comment on above: Performed By: #### C BC, CMP, ADIFF, MDW, LIP, ANEU, GFR #### [address] [address] MCV (RBC) [Entitic vol] 89.5 fL Normal 80.0-94.0 [facility] ([place] Comment on above: Performed By: #### C BC, CMP, ADIFF, MDW, LIP, ANEU, GFR #### [address] [address] Platelet 288 10 3/mcL Normal 130-400 [facility] ([place] Comment on above: Performed By: #### C BC, CMP, ADIFF, MDW, LIP, ANEU, GFR #### [address] [address] Platelet mean volume (Bld) [Entitic vol] 7.3 fL Low 7.4-10.4 [facility] ([place] Comment on above: Performed By: #### C BC, CMP, ADJAN, MDW, LIP, ANEU, GFR #### [address] [address] RBC 4.62 10 6/mcL Normal 4.04-6.13 [facility] ([place] Comment on above: Performed By: #### C BC, CMP, ADIFF, MDW, LIP, ANEU, GFR #### [address] [address] WBC 8.6 10 3/mcL Normal 4.6-10.8 [facility] ([place] Comment on above: Performed By: #### C BC, CMP, ADIFF, MDW, LIP, ANEU, GFR #### [address] [address] CMPon 10-20-2022 Albumin Level 3.4 G/dL Low 3.5-5.0 [facility] ([place] Comment on above: Performed By: #### C BC, CMP, ADIFF, MDW, LIP, ANEU, GFR #### [address] [address] Albumin/Globulin [Mass ratio] 1.1 {ratio} Normal 1.1-2.5 [facility] ([place] Comment on above: Performed By: #### C BC, CMP, ADIFF, MDW, LIP, ANEU, GFR #### [address] [address] ALP [Catalytic activity/Vol] 47 U/L Normal 40-135 [facility] ([place] Comment on above: Performed By: #### C BC, CMP, ADIFF, MDW, LIP, ANEU, GFR #### [address] [address] ALT [Catalytic activity/Vol] 21 U/L Normal 16-63 [facility] ([place]) Comment on above: Performed By: #### C BC, CMP, ADIFF, MDW, LIP, ANEU, GFR #### [address] [address] AST [Catalytic activity/Vol] 18 U/L Normal 10-40 [facility] ([place]) Comment on above: Performed By: #### C BC, CORNELIA, KLARISSA, ANURAG, LIP, ANEU, GFR #### [address] [address] Bili Total 0.2 mg/dL Normal 0.2-1.0 [facility] ([place]) Comment on above: Result Comment: Use of this assay is not recommended for patients undergoing treatment with eltrombopag due to the potential for falsely elevated results. Performed By: #### C LANI, CORNELIA, KLARISSA, ANURAG, LIP, ANEU, GFR #### [address] [address] BUN/Creatinine Ratio 13 ratio Normal 7-27 [facility] ([place]) Comment on above: Performed By: #### C BC, CORNELIA, KLARISSA, ANURAG, LIP, ANEU, GFR #### [address] [address] Calcium [Mass/Vol] 8.8 mg/dL Normal 8.4-10.2 [facility], 1928–1983 ([place]) Comment on above: Performed By: #### C BC, CORNELIA, KLARISSA, ANURAG, LIP, ANEU, GFR #### [address] [address] Chloride [Moles/Vol] 105 mmol/L Normal 98-107 [facility] ([place]) Comment on above: Performed By: #### C BC, CMP, KLARISSA, W, LIP, ANEU, GFR #### [address] [address] CO2 [Moles/Vol] 27 mmol/L Normal 22-29 [facility] ([place]) Comment on above: Performed By: #### C BC, CMP, KLARISSA, W, LIP, ANEU, GFR #### [address] [address] Creatinine [Mass/Vol] 0.99 mg/dL Normal 0.70-1.30 [facility] ([place]) Comment on above: Performed By: #### C BC, CMP, ADIFF, MDW, LIP, ANEU, GFR #### [address] [address] Electrolyte Balance 9.0 mEq/L Normal 4.0-15.0 [facility] ([place]) Comment on above: Performed By: #### C BC, CMP, ADIFF, MDW, LIP, ANEU, GFR #### [address] [address] Globulin 3.2 G/dL Normal [facility] ([place]) Comment on above: Performed By: #### C BC, CMP, KLARISSA, MDW, LIP, ANEU, GFR #### [address] [address] Glucose [Mass/Vol] 109 mg/dL High 70-105 [facility] ([place]) Comment on above: Performed By: #### C BC, CMP, ADIFF, MDW, LIP, ANEU, GFR #### [address] [address] Potassium [Moles/Vol] 3.9 mmol/L Normal 3.5-5.1 [facility] ([place]) Comment on above: Performed By: #### C BC, CMP, ADIFF, MDW, LIP, ANEU, GFR #### [address] [address] Sodium [Moles/Vol] 141 mmol/L Normal 136-145 [facility] ([place]) Comment on above: Performed By: #### C BC, CMP, ADIFF, MDW, LIP, ANEU, GFR #### [address] [address] Total Protein 6.6 G/dL Normal 6.4-8.2 [facility] ([place]) Comment on above: Performed By: #### C BC, CMP, ADIFF, MDW, LIP, ANEU, GFR #### [address] [address] Urea nitrogen [Mass/Vol] 13 mg/dL Normal 7-18 [facility] ([place]) Comment on above: Performed By: #### C BC, CMP, KLARISSA, MDW, LIP, ANEU, GFR #### [id number] [place], [place] [address] CT ABD/PELVIS W/ IV CONTRAST ONLYon 10-20-2022 [...] 10/20/2022 6:25:29 PM Ordering Provider: LEDY Nelson [facility] ([place]) LACon 10-20-2022 Lactic Acid Lvl 1.2 mmol/L Normal 0.4-2.0 [facility] ([place]) Comment on above: Performed By: #### C BC, CMP, KLARISSA, W, LIP, ANEU, GFR #### [facility] [address] [place], [place] [address] LIPon 10-20-2022 Lipase Level 43 U/L Normal 16-77 [facility] ([place]) Comment on above: Performed By: #### C BC, CMP, KLARISSA, MDW, LIP, ANEU, GFR #### [facility] [address] [place], [place] [address] LABORATORYOrdered By: Usha Tenorio on 08-28-2022 Basophil, [...] Invalid Interpretation Code 0.60 - 1.40 mg/dL AH ADM SS Electrolyte Balance 5.0 mEq/L Invalid Interpretation Code 4.0 - 15.0 mEq/L AH ADM SS Eosinophils (Bld) [#/Vol] 0.2 103/mcL Invalid Interpretation Code 0.0 - 0.7 10^3/mcL AH Workflow SS Eosinophils/100 WBC (Bld) 1.7 % Invalid Interpretation Code 0.0 - 6.0 % AH Workflow SS Erythrocyte distribution width (RBC) [Ratio] [...] 17.77 Invalid Interpretation Code 0.00 - 20.00 Workflow SS Comment on above: Result Comment: [...] (U) Negative Invalid Interpretation Code Neg-Tracemg /dL Auto Urine SS UA Leuk Est Negative (08/18/22 12:18 PM) Invalid Interpretation Code Negative Auto Urine SS UA Nitrite Negative (08/18/22 12:18 PM) Invalid Interpretation Code Negative Auto Urine SS UA pH 7.5 (08/18/22 12:18 PM) Invalid Interpretation Code 5.0 - 8.0 AH Auto Urine SS UA Protein Negative Invalid Interpretation Code Negativemg/ dL Auto Urine SS UA Spec Grav 1.020 [...] [Moles/Vol] 6 mmol/L 3 - 13 mmol/L [facility] Calcium [Mass/Vol] 9.0 mg/dL 8.4 - 10. 4 mg/dL [facility] Chloride [Moles/Vol] 105 mmol/L 98 - 10 7 mmol/L [facility] CO2 [Moles/Vol] 26 mmol/L 22 - 30 mmol/L [facility] Creatinine [Mass/Vol] 0.71 mg/dL 0.66 - 1.25 mg/dL [facility] GFR/1.73 sq M.predicted MDRD (S/P/Bld) [Vol rate/Area] - PINF [facility] Comment on above: Calculation based on the Chronic Kidney Disease Epidemiology Collaboration (CKD-EPI) equation refit without adjustment for race Glucose [Mass/Vol] 100 mg/dL 70 - 100 mg/dL [facility] Interpretation and review of laboratory results Normal [facility] Potassium [Moles/Vol] 4.3 mmol/L 3.5 - 5.1 mmol/L [facility] Sodium [Moles/Vol] 137 mmol/L 135 - 145 mmol/L [facility] Urea nitrogen [Mass/Vol] 14 mg/dL 9 - 20 mg/dL [facility] CBC W Auto Differential pane l (Bld)Ordered By: Rhonda Biggs on 06-19-2022 Basophils (Bld) [#/Vol] 0.1 10*3/uL 0.0 - 0.2 10*3/uL [facility] Basophils/100 WBC (Bld) 1.3 % 0.0 - 2.0 % [facility] Eosinophils (Bld) [#/Vol] 0.2 10*3/uL 0.0 - 0.5 10*3/uL [facility] Eosinophils/100 WBC (Bld) 2.4 % 1.0 - 6.0 % [facility] Erythrocyte distribution width (RBC) [Ratio] 14.3 % 11.5 - 14.5 % [facility] Hematocrit (Bld) [Volume fraction] 42.3 % 40.0 - 52.0 % [facility] Hemoglobin (Bld) [Mass/Vol] 14.5 g/dL 13.0 - 18.0 g/dL [facility] Interpretation and review of laboratory results Abnormal [facility] Lymphocytes (Bld) [#/Vol] 2.9 10*3/uL 1.0 - 4.3 10*3/uL [facility] Lymphocytes/100 WBC (Bld) 31.3 % 20.0 - 40.0 % [facility] MCH (RBC) [Entitic mass] 30.7 pg 26.0 - 34.0 pg [facility] MCHC (RBC) [Mass/Vol] 34.2 % 32.0 - 36.0 % [facility] MCV (RBC) [Entitic vol] 90.0 fL 80.0 - 98.0 fL [facility] Monocytes (Bld) [#/Vol] 0.6 10*3/uL 0.0 - 0.8 10*3/uL [facility] Monocytes/100 WBC (Bld) 6.3 % 2.0 - 10.0 % [facility] Neutrophils (Bld) [#/Vol] 5.4 10*3/uL 1.8 - 7.0 10*3/uL [facility] Neutrophils/100 WBC (Bld) 58.7 % 40.0 - 80.0 % [facility] Nucleated RBC/100 WBC (Bld) [Ratio] 0.0 % [facility] Platelet mean volume (Bld) [Entitic vol] 7.0 fL Low 7.4 - 12.4 fL [facility] Platelets (Bld) [#/Vol] 296 10*3/uL 140 - 440 10*3/uL [facility] RBC (Bld) [#/Vol] 4.70 10*6/uL 4.40 - 5.9 0 10*6/uL [facility] WBC (Bld) [#/Vol] 9.2 10*3/uL 3.6 - 10.7 10*3/uL [facility] - Drug toxicology on 06-19-2022 carBAMazepine [Mass/Vol] 14.5 ug/mL High 4.0 - 12.0 ug/mL [facility] No Panel Informationon 06-19 Interpretation and review of laboratory results Abnormal [facility] EMERGENCY REPORTon 2 EMERGENCY REPORT [facility] EMERGENCY ROOM REPORT NAME ACCOUNT SEX AGE ADMIT DISCHARGE PT MED. 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 He works at an [employer] business. He has done that for sometime. [...] sinus mechanism without any evidence of acute AR or ischemia. Rate was 111. Emergency room [...] work excuse was provided. Dictated By: Patrick ReedDO eleni 05/23/22 07:02 JOB #: [id number] Transcribed By: am 05/23/22 13:53 Electronically signed by: E-SIGN PATRICK VIGIL 06/12/22 05:26 Page 2 of 2 PATRICK KOROMA Emergency Room Report A Normal [facility] CT ABDOMEN PELVIS WITH IV [...] thickening. Please correlate with urinalysis for infection. [facility] Workstation ID: [id number] Dictated by: ROSAURA ROBLES on FriJun 10, 2022 2:32:31 AM EST Transcribed by: CHARLIE JIMENEZ on FriJun 10, 2022 2:35:27 AM EST Finalized by: ROSAURA ROBLES on FriJun 10, 2022 2:46:42 AM EST Normal [facility] Comment on above: Order Comment: Injur y/Trauma [...] origins. 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 No large vessel occlusion is seen. 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 OTHER: No pathologic intracranial enhancement is seen. IMPRESSION: 1. No acute intracranial abnormality. No hemorrhage or mass effect. 2. Intracranial extracranial vessels demonstrate no stenosis, thrombus, dissection, aneurysm, or large vessel occlusion. 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 3. Acute on chronic haas sinusitis in [...] FriJun 06, 2022 12:50:41 AM EST Normal [facility] Comment on above: Order Comment: Injur y/Trauma [...] CRP 2.80 mg/dl High 0.00 - 0.90 [facility] Comment on above: Performed By: #### 2 39348 #### [facility],[address] [place] [address] CBC + DIFFon 05-23-2022 Baso # 0.10 x10EE3/UL Normal 0.00 - 0.10 [facility] Comment on above: Performed By: #### 2 91553 #### [facility],[address] [place] [address] Basophils/100 WBC (Bld) 1.1 % Normal 0.0 - 2.0 [facility] Comment on above: Performed By: #### 2 69247 #### [facility],[address] [place] [address] CBC + DIFF Normal [facility] Comment on above: Result Comment: CBC- COMPLETE BLOOD COUNT Performed By: #### 2 43816 #### [facility],[address] [place] [address] EO # 0.20 x10EE3/UL Normal 0.00 - 0.50 [facility] Comment on above: Performed By: #### 2 54234 #### [place] [address] Eosinophils/100 WBC (Bld) 1.2 % Normal 0.0 - 7.0 [facility] Comment on above: Performed By: #### 2 98246 #### [place] [address] Erythrocyte distribution width (RBC) [Ratio] 13.4 % Normal 12.0 - 15.6 [facility] Comment on above: Performed By: #### 2 92939 #### [place] [address] Hematocrit (Bld) [Volume fraction] 44.7 % Normal 40.0 - 52.0 [facility] Comment on above: Performed By: #### 2 49054 #### [facility],[address] [place] [address] Hemoglobin (Bld) [Mass/Vol] 15.0 g/dL Normal 13.0 - 17.5 [facility] Comment on above: Performed By: #### 2 98865 #### [facility],[address] [place] [address] Lymph # 2.80 x10EE3/UL Normal 0.80 - 2.80 [facility] Comment on above: Performed By: #### 2 29291 #### [facility],[address] [place] [address] Lymphocytes/100 WBC (Bld) 19.8 % Low 20.0 - 45.0 [facility] Comment on above: Performed By: #### 2 25406 #### [facility],[address] [place] [address] MANUAL DIFF N/A Normal [facility] Comment on above: Performed By: #### 2 07747 #### [facility],[address] [place] [address] MCH (RBC) [Entitic mass] 30 pg Normal 27 - 33 [facility] Comment on above: Performed By: #### 2 05081 #### [facility],[address] [place] [address] MCHC 34 X10 3 Normal 32 - 36 [facility] Comment on above: Performed By: #### 2 97841 #### [facility],[address] [place] [address] MCV (RBC) [Entitic vol] 90 fL Normal 81 - 98 [facility] Comment on above: Performed By: #### 2 45258 #### [facility],[address] [place] [address] [place] # 1.00 x10EE3/UL Normal 0.20 - 1.00 [facility] Comment on above: Performed By: #### 2 78337 #### [facility],[address] [place] [address] MONOS % 6.8 % Normal 0.0 - 10.0 [facility] Comment on above: Performed By: #### 2 69532 #### [place] [address] Morphology Alonso (Bld) [Interp] N/A Normal [facility] Comment on above: Result Comment: {CD] Performed By: #### 2 50811 #### [place] [address] Neut # 10.00 x10EE3/UL High 1.50 - 7.10 [facility] Comment on above: Performed By: #### 2 57742 #### [facility],[address] [place] [address] Neutrophils/100 WBC (Bld) 71.1 % Normal 46.0 - 76.0 [facility] Comment on above: Performed By: #### 2 23202 #### [facility],[address] [place] [address] PLATELET 313 x10EE3/UL Normal 150 - 450 [facility] Comment on above: Performed By: #### 2 12694 #### [facility],[address] [place] [address] Platelet mean volume (Bld) [Entitic vol] 7.7 fL Normal 6.4 - 10.5 [facility] Comment on above: Result Comment: AUTO MATED DIFFERENTIAL Performed By: #### 2 28507 #### [facility],[address] [place] [address] RBC 4.95 x 10EE6/UL Normal 4.50 - 6.00 [facility] Comment on above: Performed By: #### 2 58478 #### [facility],[address] [place] [address] WBC 14.0 x 10EE3/UL High 4.5 - 10.8 [facility] Comment on above: Performed By: #### 2 40921 #### [facility],[address] [place] [address] CMP with eGFRon 05-23-2022 AGE 42 years Normal [facility] Comment on above: Performed By: #### 2 79488 #### [facility],[address] [place] [address] Albumin [Mass/Vol] 3.5 g/dL Normal 3.4 - 5.0 [facility] Comment on above: Performed By: #### 2 61589 #### [facility],[address] [place] [address] Albumin/Globulin [Mass ratio] 0.9 {ratio} Normal 0.9 - 1.6 [facility] Comment on above: Performed By: #### 2 88504 #### [facility],[address] [place] [address] ALK PHOS 44 U/L Low 46 - 116 [facility] Comment on above: Performed By: #### 2 89704 #### [facility],[address] [place] [address] ALT [Catalytic activity/Vol] 21 U/L Normal 16 - 63 [facility] Comment on above: Performed By: #### 2 65799 #### [facility],[address] [place] [address] Anion gap [Moles/Vol] 10 mmol/L Normal 10 - 20 [facility] Comment on above: Performed By: #### 2 50537 #### [facility],[address] [place] [address] AST [Catalytic activity/Vol] 16 U/L Normal 15 - 37 [facility] Comment on above: Performed By: #### 2 69089 #### [facility],[address] [place] [address] B/C RATIO 11 ratio Normal 0 - 30 [facility] Comment on above: Performed By: #### 2 35236 #### [facility],[address] [place] [address] Bilirubin [Mass/Vol] 0.2 mg/dL Normal 0.2 - 1.0 [facility] Comment on above: Performed By: #### 2 97568 #### [facility],[address] [place] [address] Calcium [Mass/Vol] 9.0 mg/dL Normal 8.5 - 10.1 [facility] Comment on above: Performed By: #### 2 27203 #### [facility],[address] [place] [address] Chloride [Moles/Vol] 101 mmol/L Normal 98 - 107 [facility] Comment on above: Performed By: #### 2 74451 #### [facility],[address] [place] [address] CMP with eGFR Normal [facility] Comment on above: Result Comment: COMP REHENSIVE METABOLIC PANEL Performed By: #### 2 84493 #### [facility],[address] [place] [address] CO2 [Moles/Vol] 30.2 mmol/L Normal 21.0 - 32.0 [facility] Comment on above: Performed By: #### 2 60563 #### [facility],[address] [place] [address] Creatinine [Mass/Vol] 0.91 mg/dL Normal 0.70 - 1.30 [facility] Comment on above: Performed By: #### 2 47427 #### [facility],[address] [place] [address] GFR/1.73 sq M.predicted among non-blacks MDRD (S/P/Bld) [Vol rate/Area] mL/min/{1.73_m2} Normal 60 - 999 [facility] Comment on above: Performed By: #### 2 87843 #### [facility],[address] [place] [address] Result Comment: ACCO RDING TO THE NATIONAL KIDNEY DISEASE EDUCATION PROGRAM(NKDE), A NORMAL eGFR IS A VALUE GREATER THAN OR EQUAL TO 60 ML/MIN/1.73 SQ METERS. CHRONIC KIDNEY DISEASE: <60mL/MIN/1.73 SQ METERS KIDNEY FAILURE: <15mL/MIN/1.73 SQ METERS THIS TEST SHOULD ONLY BE USED FOR PATIENTS 18 YEARS OF AGE AND OLDER. Globulin (S) [Mass/Vol] 3.7 g/dL Normal 1.5 - 3.8 [facility] Comment on above: Performed By: #### 2 82505 #### [facility],[address] [place] [address] Glucose [Mass/Vol] 104 mg/dL Normal 74 - 106 [facility] Comment on above: Performed By: #### 2 51918 #### [facility],[address] [place] [address] Potassium [Moles/Vol] 3.8 mmol/L Normal 3.5 - 5.1 [facility] Comment on above: Performed By: #### 2 18138 #### [facility],[address] [place] [address] Protein [Mass/Vol] 7.2 g/dL Normal 6.4 - 8.2 [facility] Comment on above: Performed By: #### 2 42739 #### [facility],[address] [place] [address] Sodium [Moles/Vol] 137 mmol/L Normal 136 - 145 [facility] Comment on above: Performed By: #### 2 84458 #### [facility],[address] [place] [address] Urea nitrogen [Mass/Vol] 10 mg/dL Normal 7 - 18 [facility] Comment on above: Performed By: #### 2 34169 #### [facility],[address] [place] [address] BRAIN W/O CONTRASTon 12-0 CT BRAIN W/O CONTRAST [place] [address] Patient: VALDOMARITZA PATRICK Matteo Phone#: : [phone] Age: 42 Gender: M Pt. Type: ER Account: [id number] Location: 052 Ordering: DR. PATRICK VIGIL Exam Date: 05/22/2022/23:10 Family Phys: Charge Code: [id number] Physician: [place] Order #: [id number] Dose#: [id number] PROCEDURE: CT BRAIN WITHOUT CONTRAST COMPARISON: [facility], CT, BRAIN W/O CON, 12/03/2011, 2:09. [...] Waters MD on 05/23/2022 at 14:41 Normal [facility] SEDRATEon 05-23-2022 SEDRATE 13 mm/hr Normal 0 - 20 [facility] Comment on above: Performed By: #### 2 59330 #### [facility],[address] [place] [address] TROPONIN I, HIGH SENSITIVITY on 05-23-2022 HS TROPONIN 4.4 pg/mL Normal 0.0 - 76.2 [facility] Comment on above: Performed By: #### 2 62507 #### [place] [id number] XR SHOULDER RIGHT (MIN 2 VIE WS)on [...] Rosas Silva MD 04/25/22 Final result Normal [facility] Comment on above: Order Comment: Reaso n for exam:->ac joint deformity/pain No acute abnormality . [facility] EXAMINATION: THREE XRAY VIEWS OF THE RIGHT SHOULDER 04/25/2022 5:40 pm COMPARISON: None. HISTORY: ORDERING SYSTEM PROVIDED HISTORY: ac joint deformity/pain TECHNOLOGIST PROVIDED HISTORY: Reason for exam:->ac joint deformity/pain FINDINGS: Glenohumeral joint is normally aligned. No evidence of acute fracture or dislocation. No abnormal periarticular calcifications. The AC joint is unremarkable in appearance. Visualized lung is unremarkable. [facility] Rosas Silva MD - 04/25/2022 [...] lung is unremarkable. IMPRESSION: No acute abnormality. [employer] Phone: Radiology Study observation (narrative) [employer] Phone: XR SHOULDER RIGHT (MIN 2 VIE WS)Ordered By: Rosas Silva on 04-25-2022 [employer] Phone: XR WRIST RIGHT (MIN 3 VIEWS) [...] Abdifatah Child DO 04/03/22 Final result Normal [facility] Comment on above: Order Comment: Reaso n for exam:->crush injury No acute osseous abnormality involving the right wrist. [facility] EXAMINATION: XRAY VIEWS OF THE RIGHT WRIST 04/03/2022 4:10 pm COMPARISON: None. HISTORY: ORDERING SYSTEM PROVIDED HISTORY: crush injury TECHNOLOGIST PROVIDED HISTORY: Reason for exam:->crush injury FINDINGS: No fracture or dislocation involving the right wrist. Normal carpal bone alignment. No radiopaque foreign body. [facility] Abdifatah Child DO - 04/03/2022 EXAMINATION: XRAY VIEWS OF THE RIGHT WRIST 04/03/2022 4:10 pm COMPARISON: None. HISTORY: ORDERING SYSTEM PROVIDED HISTORY: crush injury TECHNOLOGIST PROVIDED HISTORY: Reason for exam:->crush injury FINDINGS: No fracture or dislocation involving the right wrist. Normal carpal bone alignment. No radiopaque foreign body. IMPRESSION: No acute osseous abnormality involving the right wrist. [employer] Phone: Radiology Study observation (narrative) [employer] Phone: XR WRIST RIGHT (MIN 3 VIEWS) Ordered By: Abdifatah Child on 04-03-2022 [employer] Phone: CT CERVICAL SPINE WO CONTRAS Ton 03-08-2022 Patient Name: PATRICK KOROMA [employer] ACCESSION EXAM DATE/TIME PROCEDURE ORDERING PROVIDER [id number] 03/08/2022 01:[address] Spine Cervical w/o [id number] -DARRION, JOSELUIS Contrast CPT code 63509 Reason For Exam (CT Spine Cervical w/o [...] Tomography ACCESSION EXAM DATE/TIME PROCEDURE ORDERING PROVIDER [id number] 03/08/2022 01:[address] Spine Cervical w/o [id number] -DARRION, JOSELUIS Contrast CPT code 22173 Reason For Exam (CT Spine Cervical w/o [...] and Time: 03/08/2022 1:50 NIKI Work Phone: [facility] Work Phone: CT HEAD WO CONTRASTon 2021 Patient Name: PATRICK KOROMA [employer] ACCESSION EXAM DATE/TIME PROCEDURE ORDERING PROVIDER [id number] 03/08/2022 01:[address] Head or Brain w/o [id number] -DARRION, JOSELUIS Contrast CPT code 93514 Reason For Exam (CT Head or Brain [...] Date and Time: 03/08/2022 1:48 [facility] Shankar Haas MD - 03/08/2022 Patient Name: PATRICK KOROMA [employer] Tom[employer] ACCESSION EXAM DATE/TIME PROCEDURE ORDERING PROVIDER [id number] 03/08/2022 01:[address] Head or Brain w/o [id number] -DARRION, JOSELUIS Contrast CPT code 73198 Reason For Exam (CT Head or Brain [...] KEVIN Transcribed Date and Time: 03/08/2022 1:48 [facility] Work Phone: CT HEAD WO CONTRASTOrdered B y: Shankar Haas on 03-08-2022 [facility] Work Phone: CT Head or Brain w/o Contras ton 03-08-2022 CT Head or Brain w/o Contrast Patient Name: PATRICK KOROMA [employer] ACCESSION EXAM DATE/TIME PROCEDURE ORDERING PROVIDER [id number] 03/08/2022 01:[address] Head or Brain w/o [id number] -DARRION, JOSELUIS Contrast CPT code 73279 Reason For Exam (CT Head or Brain [...] Transcribed Date and Time: 03/08/2022 1:[address] [facility] [address] Spine Cervical w/o Contra ston 03-08-2022 CT Spine Cervical w/o Contrast Patient Name: PATRICK KOROMA [employer] ACCESSION EXAM DATE/TIME PROCEDURE ORDERING PROVIDER [id number] 03/08/2022 01:[address] Spine Cervical w/o [id number] -JOSELUIS MAIER Contrast CPT code 56930 Reason For Exam (CT Spine Cervical w/o [...] Transcribed Date and Time: 03/08/2022 1:50 Normal [facility] ED Provider Noteon ED Provider Note [facility] ED EMERGENCY DEPARTMENT ENCOUNTER Pt Name: Patrick Koroma Birthdate 1980 Date of evaluation: 03/08/2022 Provider: Joseluis Maier DO CHIEF COMPLAINT Chief Complaint Patient [...] plan and expressed understanding. 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 Normal [facility] No Panel Informationon 03-08 Radiology Study observation (narrative) [facility] Work Phone: Absolute lymphocyte counton 01-01-2022 Lymphocytes Auto (Unsp spec) [#/Vol] 2.19 10*3/uL 0.83-4.51 [facility] Work Phone: Basophil percentageon 2021 Basophils/100 WBC (Bld) 0.5 % 0-1 [facility] Work Phone: Bilirubin [Mass/Vol] 0.20 mg/dL 0.20-1.00 [facility] Work Phone: Comment on above: For patients on eltr ombopag therapy, use of Dimension [place] TBIL is not recommended. Chloride [Moles/Vol] 111 mmol/L 98-107 [facility] Work Phone: Eosinophils/100 WBC (Bld) 1.6 % 0-5 [facility] Work Phone: Glucose [Mass/Vol] 103 mg/dL 74-106 [facility] Work Phone: Comment on above: Fasting Glucose resu lt from 100 to 125 mg/dL suggests IMPAIRED HOMEOSTASIS per A.D.A. criteria. Neutrophils (Bld) [#/Vol] 7.1 10*3/uL 2.0-7.7 [facility] Work Phone: Neutrophils/100 WBC (Bld) 70.0 % 47-70 [facility] Work Phone: Potassium [Moles/Vol] 3.9 mmol/L 3.5-5.1 [facility] Work Phone: Protein [Mass/Vol] 7.1 g/dL 6.4-8.2 [facility] Work Phone: Sodium [Moles/Vol] 140 mmol/L 136-145 [facility] Work Phone: WBC (Bld) [#/Vol] 10.2 10*3/uL 4.4-11.0 [facility] Work Phone: Blood erythrocytes count (nu mber/volume)on 01-01-2022 RBC (Bld) [#/Vol] 4.65 10*6/uL 4.6-6.2 [facility] Work Phone: Blood hemoglobin measurement (mass/volume)on 01-01-2022 Hemoglobin (Bld) [Mass/Vol] 14.1 g/dL 13.0-16.5 [facility] Work Phone: Blood lymphocytes/100 leukoc yteson 01-01-2022 Lymphocytes/100 WBC (Bld) 21.6 % 19-41 [facility] Work Phone: Blood monocytes/100 leukocyt eson 01-01-2022 Monocytes/100 WBC (Bld) 5.8 % 0-10 [facility] Work Phone: Blood platelet mean volumeon 01-01-2022 Platelet mean volume (Bld) [Entitic vol] 9.2 fL 6.2-12.0 [facility] Work Phone: Determination of erythrocyte mean corpuscular volume (MCV)on 01-01-2022 MCV (RBC) [Entitic vol] 92.7 fL 80-94 [facility] Work Phone: Direct bilirubinon Bilirubin.direct [Mass/Vol] 0.09 mg/dL 0.00-0.30 [facility] Work Phone: Hematocrit Auto (Bld) [Volum e fraction]on 01-01-2022 Hematocrit (Bld) [Volume fraction] 43.1 % 40-54 [facility] Work Phone: INR in Blood by Coagulation assayon 01-01-2022 INR Coag (Bld) [Relative time] 0.9 {INR} [facility] Work Phone: Laboratory - Chemistry and C hemistry - challengeon 01-01-2022 ALP [Catalytic activity/Vol] 43 U/L 45-117 [facility] Work Phone: ALT [Catalytic activity/Vol] 27 U/L 16-61 [facility] Work Phone: CO2 [Moles/Vol] 25.0 mmol/L 21.0-32.0 [facility] Work Phone: Globulin (S) [Mass/Vol] 3.8 g/dL 2.2-4.2 [facility] Work Phone: Urea nitrogen/Creatinine [Mass ratio] 9.2 mg/mg 10-20 [facility] Work Phone: Laboratory - Coagulationon 0 01-01-2022 aPTT Coag (Bld) [Time] 25.8 s 24.1-36.2 [facility] Work Phone: PT Coag (PPP) [Time] 11.9 s 11.7-14.9 [facility]: Laboratory - Hematology and Cell countson 01-01-2022 Erythrocyte distribution width (RBC) [Entitic vol] 43.3 fL 35.1-43.9 [facility] Work Phone: Erythrocyte distribution width (RBC) [Ratio] 12.7 % 11.6-14.6 [facility] Work Phone: Immature granulocytes/100 WBC (Bld) 0.500 % 0.0-0.9 [facility] Work Phone: Comment on above: IG% - Immature Granu locytes (promyelocytes, myelocytes and metamyelocytes) > 1% indicates that a LEFT SHIFT is Present. MCH (RBC) [Entitic mass] 30.3 pg 27.0-32.0 [facility] Work Phone: Nucleated RBC/100 WBC (Bld) [Ratio] 0 % 0-5 [facility] Work Phone: MCHC Auto (RBC) [Mass/Vol]on 01-01-2022 MCHC (RBC) [Mass/Vol] 32.7 g/dL 32-36 [facility] Work Phone: No Panel Informationon 01-01 Estimated Creatinine Clearance Calc 125.00 ml/min [facility] Work Phone: Estimated GFR (MDRD) Amer 123 mL/min >60 [facility] Work Phone: Comment on above: GFR Calc Estimated GFR (MDRD) Non-Af Amer 101 mL/min >60 [facility] Work Phone: Comment on above: Non- GFR Calc Platelets bldon 01-01-2022 Platelets (Bld) [#/Vol] 328 10*3/uL 150-450 [facility] Work Phone: Serum or plasma albumin za urement (mass/volume)on 01-01-2022 Albumin [Mass/Vol] 3.3 g/dL 3.2-5.0 [facility] Work Phone: Serum or plasma calcium za urement (mass/volume)on 01-01-2022 Calcium [Mass/Vol] 9.1 mg/dL 8.5-10.1 [facility] Work Phone: Serum or plasma creatinine m easurement (mass/volume)on 01-01-2022 Creatinine [Mass/Vol] 0.87 mg/dL 0.70-1.30 [facility] Work Phone: Comment on above: The validity of the calculated GFR & GFRAA in patients over 70 years has not been determined. Clinical correlation is essential. Serum or plasma urea nitroge n measurement (mass/volume)on 01-01-2022 Urea nitrogen [Mass/Vol] 8 mg/dL 7-18 [facility] Work Phone: Thin prep Papanicolaou smear with manual screeningon 01-01-2022 Thin prep Papanicolaou smear with manual screening 22 U/L 15-37 [facility] Work Phone: Thin prep Papanicolaou smear with manual screening 4 5-15 [facility] Work Phone: LABORATORYOrdered By: Sara Echeverria on [...] 11-15 Calcium [Mass/Vol] 8.8 mg/dL Normal 8.4-10.4 [facility] Comment on above: Performed By: #### L ACT3, MG3, BMP3, HEMDF #### [facility] [address] [place] [address] Glucose [Mass/Vol] 99 mg/dL Normal 70-100 [facility] Comment on above: Performed By: #### L ACT3, MG3, BMP3, HEMDF #### [facility] [address] [place] [address] Anion gap [Moles/Vol] 6 mmol/L Normal 3-13 [facility] Comment on above: Performed By: #### L ACT3, MG3, BMP3, HEMDF #### [facility] [address] [place] [address] CO2 [Moles/Vol] 27 mmol/L Normal 22-30 [facility] Comment on above: Performed By: #### L ACT3, MG3, BMP3, HEMDF #### [facility] [address] [place] [address] Creatinine [Mass/Vol] 0.69 mg/dL Normal 0.52-1.25 [facility] Comment on above: Performed By: #### L ACT3, MG3, BMP3, HEMDF #### [facility] [address] [place] [address] eGFR OTHER > 90.0 Normal >60 [facility] Comment on above: Result Comment: KDIG O [...] #### L ACT3, MG3, BMP3, HEMDF #### [facility] [address] [place] [address] GFR/1.73 sq M.predicted among blacks MDRD (S/P/Bld) [Vol rate/Area] mL/min/{1.73_m2} Normal >60 [facility] Comment on above: Performed By: #### L ACT3, MG3, BMP3, HEMDF #### [id number] [place] [address] Urea nitrogen [Mass/Vol] 5 mg/dL Low 7-17 [facility] Comment on above: Performed By: #### L ACT3, MG3, BMP3, HEMDF #### [address] [place] [address] Chloride [Moles/Vol] 105 mmol/L Normal 98-107 [facility] Comment on above: Performed By: #### L ACT3, MG3, BMP3, HEMDF #### [address] [address] [place] [address] Potassium [Moles/Vol] 3.8 mmol/L Normal 3.5-5.1 [facility] Comment on above: Performed By: #### L ACT3, MG3, BMP3, HEMDF #### [address] [place] [address] Sodium [Moles/Vol] 138 mmol/L Normal 135-145 [facility] Comment on above: Performed By: #### L ACT3, MG3, BMP3, HEMDF #### [address] [address] [address] Abdomen/Pelvis w/ Contras ton 12-05-2021 CT Abdomen/Pelvis w/ Contrast Patient Name: PATRICK KOROMA Computed Tomography ACCESSION EXAM DATE/TIME PROCEDURE ORDERING PROVIDER [id number] 12/05/2021 14:[address] Abdomen/Pelvis w/ IV [id number] -JACQUIE, Contrast (IV Onl MARTA CPT code 72342 Q9967 Reason For Exam (CT Abdomen/Pelvis w/ [...] Transcribed Date and Time: 12/05/2021 2:32 [facility] w/ Autodiffon 12-05 Abs Baso Cnt 0.1 10*3/uL Normal 0.0-0.2 [facility] Comment on above: Performed By: #### L ACT3, MG3, BMP3, HEMDF #### [facility] [address] [place] [address] Abs Neutrophile Cnt 7.3 10*3/uL High 1.8-7.0 [facility] Comment on above: Performed By: #### L ACT3, MG3, BMP3, HEMDF #### [address] [address] Basophils/100 WBC (Bld) 0.7 % Normal 0.0-2.0 [facility] Comment on above: Performed By: #### L ACT3, MG3, BMP3, HEMDF #### [address] [address] Eosinophils (Bld) [#/Vol] 0.2 10*3/uL Normal 0.0-0.5 [facility] Comment on above: Performed By: #### L ACT3, MG3, BMP3, HEMDF #### [address] [address] Eosinophils/100 WBC (Bld) 2.0 % Normal 1.0-6.0 [facility] Comment on above: Performed By: #### L ACT3, MG3, BMP3, HEMDF #### [address] [address] Erythrocyte distribution width (RBC) [Ratio] 13.1 % Normal 11.5-14.5 [facility] Comment on above: Performed By: #### L ACT3, MG3, BMP3, HEMDF #### [address] [address] Granulocytes/100 WBC (Bld) 76.6 % Normal 40.0-80.0 [facility] Comment on above: Performed By: #### L ACT3, MG3, BMP3, HEMDF #### [address] [address] Hematocrit (Bld) [Volume fraction] 39.4 % Low 40.0-52.0 [facility] Comment on above: Performed By: #### L ACT3, MG3, BMP3, HEMDF #### [address] [address] Hemoglobin (Bld) [Mass/Vol] 13.6 g/dL Normal 13.0-18.0 [facility] Comment on above: Performed By: #### L ACT3, MG3, BMP3, HEMDF #### [address] [address] Lymphocytes (Bld) [#/Vol] 1.3 10*3/uL Normal 1.0-4.3 [facility] Comment on above: Performed By: #### L ACT3, MG3, BMP3, HEMDF #### [address] [address] Lymphocytes/100 WBC (Bld) 13.9 % Low 20.0-40.0 [facility] Comment on above: Performed By: #### L ACT3, MG3, BMP3, HEMDF #### [address] [address] MCH (RBC) [Entitic mass] 31.6 pg Normal 26.0-34.0 [facility] Comment on above: Performed By: #### L ACT3, MG3, BMP3, HEMDF #### [address] [address] MCHC 34.5 % Normal 32.0-36.0 [facility] Comment on above: Performed By: #### L ACT3, MG3, BMP3, HEMDF #### [address] [address] MCV (RBC) [Entitic vol] 91.7 fL Normal 80.0-98.0 [facility] Comment on above: Performed By: #### L ACT3, MG3, BMP3, HEMDF #### [address] [address] Monocytes (Bld) [#/Vol] 0.7 10*3/uL Normal 0.0-0.8 [facility] Comment on above: Performed By: #### L ACT3, MG3, BMP3, HEMDF #### [address] [address] Monocytes/100 WBC (Bld) 6.8 % Normal 2.0-10.0 [facility] Comment on above: Performed By: #### L ACT3, MG3, BMP3, HEMDF #### [address] [address] Platelet mean volume (Bld) [Entitic vol] 7.4 fL Normal 7.4-12.4 [facility] Comment on above: Result Comment: MPV is a calculated measurement using platelet volume ratio. Performed By: #### L ACT3, MG3, BMP3, HEMDF #### [address] [address] Platelets (Bld) [#/Vol] 389 10*3/uL Normal 140-440 [facility] Comment on above: Performed By: #### L ACT3, MG3, BMP3, HEMDF #### [address] [address] RBC (Bld) [#/Vol] 4.30 10*6/uL Low 4.40-5.90 [facility] Comment on above: Performed By: #### L ACT3, MG3, BMP3, HEMDF #### [address] [address] WBC (Bld) [#/Vol] 9.6 10*3/uL Normal 3.6-10.7 [facility] Comment on above: Performed By: #### L ACT3, MG3, BMP3, HEMDF #### [address] [address] Lactic Acidon 12-05-2021 Lactate [Moles/Vol] 1.1 mmol/L Normal 0.7-2.0 [facility] Comment on above: Performed By: #### L ACT3, MG3, BMP3, HEMDF #### [address] [address] Magnesiumon 12-05-2021 Magnesium [Mass/Vol] 2.2 mg/dL Normal 1.6-2.3 [facility] Comment on above: Performed By: #### L ACT3, MG3, BMP3, HEMDF #### [address] [address] [place] [id number] LABORATORYOrdered By: Sara Echeverria on 11-30-2021 Basophil, [...] Summary Documentson 12-29-2016 Patient Summary Documents Normal [facility] Emergency Room Note on 12-24-2016 [place] [facility] Note Normal [facility] Patient Summary Documentson 12-23-2016 Patient Summary Documents Normal [facility] XR WRIST COMPLETE RIGHTon XR WRIST [...] PM Sign Date: 12/23/2016 4:46:15 PM Normal [facility] Emergency Room Note on 12-16-2016 [place] [facility] Note Normal [facility] Patient Summary Documentson 12-16-2016 Patient Summary Documents Normal [facility] Vital Signs Date Time Vital Sign Value Performing Clinician Faci lity 02-27-2025 23:00-0400 Body temperature 98 [degF] Viola Starkey [employer] Work Phone: [facility] 02-27-2025 23:00-0400 Diastolic blood pressure 80 mm[Hg] Viola Starkey [employer] Work Phone: [facility] 02-27-2025 23:00-0400 Heart rate 73 /min Viola Starkey [employer] Work Phone: [facility] 02-27-2025 23:00-0400 Respiratory rate 16 /min Viola Starkey [employer] Work Phone: [facility] 02-27-2025 23:00-0400 SaO2% (BldA) [Mass fraction] 98 % Viola Starkey [employer] Work Phone: [facility] 02-27-2025 23:00-0400 Systolic blood pressure 133 mm[Hg] Viola Starkey [employer] Work Phone: [facility] 02-27-2025 20:51-0400 Body height 187.96 cm Viola Starkey [employer] Work Phone: [facility] 02-27-2025 20:51-0400 Body mass index (BMI) [Ratio] 44.3 kg/m2 Viola Starkey [employer] Work Phone: [facility] 02-27-2025 20:51-0400 Body weight 156.63 kg Viola Fernandessey [employer] Work Phone: [facility] 02-18-2025 00:05-0400 Body temperature 98.7 [degF] Viola Lalito [employer] Work Phone: [facility] 02-18-2025 00:05-0400 Diastolic blood pressure 69 mm[Hg] Viola Starkey [employer] Work Phone: [facility] 02-18-2025 00:05-0400 Heart rate 90 /min Viola Fernandessey [employer] Work Phone: [facility] 02-18-2025 00:05-0400 Respiratory rate 18 /min Viola Fernandessey [employer] Work Phone: [facility] 02-18-2025 00:05-0400 SaO2% (BldA) [Mass fraction] 96 % Viola Starkey [employer] Work Phone: [facility] 02-18-2025 00:05-0400 Systolic blood pressure 136 mm[Hg] Viola Starkey [employer] Work Phone: [facility] 02-17-2025 21:21-0400 Body height 187.96 cm Viola Starkey [employer] Work Phone: [facility] 02-17-2025 21:21-0400 Body mass index (BMI) [Ratio] 43.9 kg/m2 Viola Starkey [employer] Work Phone: [facility] 02-17-2025 21:21-0400 Body weight 155.12 kg Viola Starkey [employer] Work Phone: [facility] 01-26-2025 00:05-0400 Body temperature 98 [degF] Viola Starkey [employer] Work Phone: [facility] 01-26-2025 00:05-0400 Diastolic blood pressure 90 mm[Hg] Viola Starkey [employer] Work Phone: [facility] 01-26-2025 00:05-0400 Heart rate 78 /min Viola Starkey [employer] Work Phone: [facility] 01-26-2025 00:05-0400 Respiratory rate 16 /min Viola Starkey [employer] Work Phone: [facility] 01-26-2025 00:05-0400 SaO2% (BldA) [Mass fraction] 97 % Viola Starkey [employer] Work Phone: [facility] 01-26-2025 00:05-0400 Systolic blood pressure 140 mm[Hg] Viola Starkey [employer] Work Phone: [facility] 01-25-2025 22:23-0400 Body height 187.96 cm Viola Starkey [employer] Work Phone: [facility] 01-25-2025 22:23-0400 Body mass index (BMI) [Ratio] 43.9 kg/m2 Viola Starkey [employer] Work Phone: [facility] 01-25-2025 22:23-0400 Body weight 155.12 kg Viola Starkey [employer] Work Phone: [facility] 12-29-2024 22:56-0400 Body temperature 98.6 [degF] Viola Starkey [employer] Work Phone: [facility] 12-29-2024 22:56-0400 Diastolic blood pressure 94 mm[Hg] Viola Starkey [employer] Work Phone: [facility] 12-29-2024 22:56-0400 Heart rate 79 /min Viola Lalito [employer] Work Phone: [facility] 12-29-2024 22:56-0400 Respiratory rate 18 /min Viola Lalito [employer] Work Phone: [facility] 12-29-2024 22:56-0400 SaO2% (BldA) [Mass fraction] 98 % Viola Fernandessey [employer] Work Phone: [facility] 12-29-2024 22:56-0400 Systolic blood pressure 159 mm[Hg] Viola Starkey [employer] Work Phone: [facility] 12-29-2024 21:21-0400 Body height 187.96 cm Viola Starkey [employer] Work Phone: [facility] 12-29-2024 21:21-0400 Body mass index (BMI) [Ratio] 44.1 kg/m2 Viola Starkey [employer] Work Phone: [facility] 12-29-2024 21:21-0400 Body weight 156.03 kg Viola Starkey [employer] Work Phone: [facility] 12-08-2024 23:34-0400 Body height 187.[address] Cristian Tate Work Phone: [facility] 12-08-2024 23:34-0400 Body mass index (BMI) [Ratio] 44.6 kg/m2 Dr. Cristian Tate Work Phone: [facility] 12-08-2024 23:34-0400 Body temperature 98 [degF] Dr. Cristian Tate Work Phone: [facility] 12-08-2024 23:34-0400 Body weight 157.[address] Cristian Tate Work Phone: [facility] 12-08-2024 23:34-0400 Diastolic blood pressure 105 mm[Hg] Dr. Cristian Tate Work Phone: 2(559)732-352760 [place] [address] 12-08-2024 23:34-0400 Heart rate 104 /min Dr. Cristian Sanderson DO Work Phone: 9(356)689-459317 [place] [address] 12-08-2024 23:34-0400 Respiratory rate 22 /min Dr. Cristian Sanderson DO Work Phone: 6(130)670-239517 [place] [address] 12-08-2024 23:34-0400 SaO2% (BldA) [Mass fraction] 99 % Dr. Cristian Sanderson DO Work Phone: 0(686)670-905217 [place] [address] 12-08-2024 23:34-0400 Systolic blood pressure 175 mm[Hg] Dr. Cristian Tate Work Phone: 5(192)352-307217 [place] [address] 12-07-2024 00:21-0400 Body temperature 96.9 [degF] Dr. Cristian Tate Work Phone: 0(506)237-192417 [place] [address] 12-07-2024 00:21-0400 Diastolic blood pressure 92 mm[Hg] Dr. Cristian Tate Work Phone: 2(725)573-137117 [place] [address] 12-07-2024 00:21-0400 Heart rate 103 /min Dr. Cristian Tate Work Phone: 5(502)354-108260 [place] [address] 12-07-2024 00:21-0400 Respiratory rate 16 /min Dr. Cristian Tate Work Phone: 9(923)304-560660 [place] [address] 12-07-2024 00:21-0400 SaO2% (BldA) [Mass fraction] 99 % Dr. Cristian Tate Work Phone: 3(766)819-483260 [place] [address] 12-07-2024 00:21-0400 Systolic blood pressure 137 mm[Hg] Dr. Cristian Tate Work Phone: 5(052)459-553517 [place] [address] 12-06-2024 23:19-0400 Body height 187.[address] Cristian Tate Work Phone: 6(520)620-611017 [place] [address] 12-06-2024 23:19-0400 Body mass index (BMI) [Ratio] 43.9 kg/m2 Dr. Cristian Tate Work Phone: [facility] 12-06-2024 23:19-0400 Body weight 155.[address] Cristian Sanderson DO Work Phone: 2(938)893-931860 [place] [address] 09-19-2024 22:25-0400 Body temperature 97 [degF] Dr. Cristian Tate Work Phone: 0(484)559-435560 [place] [address] 09-19-2024 22:25-0400 Diastolic blood pressure 93 mm[Hg] Dr. Cristian Tate Work Phone: 2(400)089-521060 [place] [address] 09-19-2024 22:25-0400 Heart rate 99 /min Dr. Cristian Tate Work Phone: 0(568)524-449060 [place] [address] 09-19-2024 22:25-0400 Respiratory rate 16 /min Dr. Cristian Tate Work Phone: 8(858)628-188560 [place] [address] 09-19-2024 22:25-0400 SaO2% (BldA) [Mass fraction] 97 % Dr. Cristian Tate Work Phone: 9(698)098-384260 [place] [address] 09-19-2024 22:25-0400 Systolic blood pressure 136 mm[Hg] Dr. Cristian Tate Work Phone: 6(055)602-095960 [place] [address] 09-19-2024 21:32-0400 Body mass index (BMI) [Ratio] 44.7 kg/m2 Dr. Cristian Tate Work Phone: 7(599)533-274960 [place] [address] 09-19-2024 21:32-0400 Body weight 158.[address] Cristian Tate Work Phone: 7(658)686-451260 [place] [address] 09-19-2024 21:16-0400 Body height 187.[address] Cristian Tate Work Phone: 2(927)763-834960 [place] [address] 08-24-2024 22:40-0400 Body temperature 99.1 [degF] No Primary Care Physician [facility] 08-24-2024 22:40-0400 Diastolic blood pressure 70 mm[Hg] No Primary Care Physician [facility] 08-24-2024 22:40-0400 Heart rate 80 /min No Primary Care Physician [facility] 08-24-2024 22:40-0400 Respiratory rate 16 /min No Primary Care Physician [facility] 08-24-2024 22:40-0400 SaO2% (BldA) [Mass fraction] 100 % No Primary Care Physician [facility] 08-24-2024 22:40-0400 Systolic blood pressure 118 mm[Hg] No Primary Care Physician [facility] 08-24-2024 21:04-0400 Body height 187.96 cm No Primary Care Physician [facility] 08-24-2024 21:04-0400 Body mass index (BMI) [Ratio] 44.1 kg/m2 No Primary Care Physician [facility] 08-24-2024 21:04-0400 Body weight 155.99 kg No Primary Care Physician [facility] 08-13-2024 12:44-0500 Body height 188 cm Stephon Benavides MD Work Phone: [facility] 08-13-2024 12:44-0500 Body mass index (BMI) [Ratio] 43.78 kg/m2 Stephon Benavides MD Work Phone: [facility] 08-13-2024 12:44-0500 Body weight 154.68 kg Stephon Benavides MD Work Phone: [facility] 08-13-2024 12:44-0500 Diastolic blood pressure 95 mm[Hg] Stephon Benavides MD Work Phone: [facility] 08-13-2024 12:44-0500 Heart rate 125 /min Stephon Benavides MD Work Phone: [facility] 08-13-2024 12:44-0500 Respiratory rate 16 /min Stephon Benavides MD Work Phone: [facility] 08-13-2024 12:44-0500 Systolic blood pressure 132 mm[Hg] Stephon Benavides MD Work Phone: [facility] 06-29-2024 14:07-0500 Body height 188 cm Jonathan Gonzalez MD Work Phone: [facility] 06-29-2024 14:07-0500 Body mass index (BMI) [Ratio] 43.65 kg/m2 Jonathan Gonzalez MD Work Phone: [facility] 06-29-2024 14:07-0500 Body temperature 97.81 [degF] Jonathan Gonzalez MD Work Phone: [facility] 06-29-2024 14:07-0500 Body weight 154.22 kg Jonathan Gonzalez MD Work Phone: [facility] 06-29-2024 14:07-0500 Diastolic blood pressure 94 mm[Hg] Jonathan Gonzalez MD Work Phone: [facility] 06-29-2024 14:07-0500 Heart rate 91 /min Jonathan Gonzalez MD Work Phone: [facility] 06-29-2024 14:07-0500 Respiratory rate 18 /min Jonathan Gonzalez MD Work Phone: [facility] 06-29-2024 14:07-0500 SaO2% (BldA) [Mass fraction] 97 % Jonathan Gonzalez MD Work Phone: [facility] 06-29-2024 14:07-0500 Systolic blood pressure 141 mm[Hg] Jonathan Gonzalez MD Work Phone: [facility] 05-16-2024 21:44-0500 Body temperature 98.42 [degF] NIDAL CHOUJAA DO [facility] 05-16-2024 21:44-0500 Diastolic Blood Pressure Non-Invasive 95 mm[Hg] NIDAL CHOUJAA DO [facility] 05-16-2024 21:44-0500 Heart rate 96 /min NIDAL CHOUJAA DO [facility] 05-16-2024 21:44-0500 Respiratory rate 18 /min NIDAL CHOUJAA DO [facility] 05-16-2024 21:44-0500 Systolic Blood Pressure Non-Invasive 141 mm[Hg] NIDAL CHOUJAA DO [facility] 09-16-2023 11:05-0400 Body height 188 cm Pacc 6 Work Phone: [facility] 09-16-2023 11:05-0400 Body temperature 98.49 [degF] Pacc 6 Work Phone: [facility] 09-16-2023 11:05-0400 Body weight 162.8 kg Pacc 6 Work Phone: [facility] 09-16-2023 11:05-0400 Diastolic blood pressure 86 mm[Hg] Pacc 6 Work Phone: [facility] 09-16-2023 11:05-0400 Heart rate 101 /min Pacc 6 Work Phone: [facility] [facility] 09-16-2023 11:05-0400 SaO2% (BldA) [Mass fraction] 98 % Pacc 6 Work Phone: [facility] 09-16-2023 11:05-0400 Systolic blood pressure 143 mm[Hg] Pacc 6 Work Phone: [facility] 09-11-2023 18:11-0400 Body temperature 98.06 [degF] DAVONTE Segura [facility] 09-11-2023 18:11-0400 Diastolic Blood Pressure Non-Invasive 77 mm[Hg] DAVONTE ONEILL MD [facility] 09-11-2023 18:11-0400 Heart rate 98 /min DAVONTE Segura [facility] 09-11-2023 18:11-0400 Respiratory rate 20 /min DAVONTE Segura [facility] 09-11-2023 18:11-0400 Systolic Blood Pressure Non-Invasive 151 mm[Hg] DAVONTE ONEILL MD [facility] 08-27-2023 10:45-0400 Diastolic Blood Pressure Non-Invasive 90 mm[Hg] REYES TERESA DO [facility] 08-27-2023 10:45-0400 Heart rate 94 /min REYES TERESA DO [facility] 08-27-2023 10:45-0400 Respiratory rate 20 /min REYES TERESA DO [facility] 08-27-2023 10:45-0400 Systolic Blood Pressure Non-Invasive 123 mm[Hg] REYES TERESA DO [facility] 08-27-2023 10:35-0400 Diastolic Blood Pressure Non-Invasive 90 mm[Hg] REYES TERESA DO [facility] 08-27-2023 10:35-0400 Heart rate 98 /min REYES TERESA DO [facility] 08-27-2023 10:35-0400 Respiratory rate 15 /min REYES TERESA DO [facility] 08-27-2023 10:35-0400 Systolic Blood Pressure Non-Invasive 123 mm[Hg] REYES TERESA DO [facility] 08-27-2023 10:20-0400 Body temperature 97.7 [degF] REYES TERESA DO [facility] 08-27-2023 10:20-0400 Diastolic Blood Pressure Non-Invasive 68 mm[Hg] REYES TERESA DO [facility] 08-27-2023 10:20-0400 Heart rate 88 /min REYES TERESA DO [facility] 08-27-2023 10:20-0400 Respiratory rate 14 /min REYES TERESA DO [facility] 08-27-2023 10:20-0400 Systolic Blood Pressure Non-Invasive 113 mm[Hg] REYES TERESA DO [facility] 08-27-2023 10:15-0400 Heart rate 86 /min REYES TERESA DO [facility] 08-27-2023 10:15-0400 Respiratory Rate - Anes 13 br/min REYES TERESA DO [facility] 08-27-2023 10:10-0400 Heart rate 96 /min REYES TERESA DO [facility] 08-27-2023 10:10-0400 Respiratory Rate - Anes 15 br/min REYES TERESA DO [facility] 08-27-2023 10:05-0400 Heart rate 104 /min REYES TERESA DO [facility] 08-27-2023 10:05-0400 Respiratory Rate - Anes 30 br/min REYES TERESA DO [facility] 08-27-2023 09:46-0400 Body temperature 97.7 [degF] REYES TERESA DO [facility] 08-27-2023 09:40-0400 Body height 184.5 cm REYES TERESA DO [facility] 08-27-2023 09:40-0400 Body temperature 97.7 [degF] REYES MOORE DO [facility] 08-27-2023 09:40-0400 Body weight 143.1 kg REYES MOORE DO [facility] 08-27-2023 09:40-0400 Body weight 42.04 kg/m2 REYES MOORE DO [facility] 08-06-2023 09:01-0500 Body height 188 cm Vicki Meraz APRN.[facility] Work Phone: [facility] 08-06-2023 09:01-0500 Body weight 158.76 kg Vicki Meraz APRN.[facility] Work Phone: [facility] 08-06-2023 09:01-0500 Diastolic blood pressure 101 mm[Hg] Vicki Meraz APRN.INVOICE CLERK, [facility] Work Phone: [facility] 08-06-2023 09:01-0500 Heart rate 107 /min Vicki Meraz APRN.[facility] Work Phone: [facility] 08-06-2023 09:01-0500 SaO2% (BldA) [Mass fraction] 98 % Vicki Meraz APRN.INVOICE CLERK, [facility] Work Phone: [facility] 08-06-2023 09:01-0500 Systolic blood pressure 153 mm[Hg] Vicki Meraz APRN.INVOICE CLERK, [facility] Work Phone: [facility] 07-04-2023 00:20-0500 Body temperature 98.1 [degF] No Primary Care Physician [facility] 07-04-2023 00:20-0500 Diastolic blood pressure 89 mm[Hg] No Primary Care Physician [facility] 07-04-2023 00:20-0500 Heart rate 98 /min No Primary Care Physician [facility] 07-04-2023 00:20-0500 Respiratory rate 16 /min No Primary Care Physician [facility] 07-04-2023 00:20-0500 SaO2% (BldA) [Mass fraction] 96 % No Primary Care Physician [facility] 07-04-2023 00:20-0500 Systolic blood pressure 143 mm[Hg] No Primary Care Physician [facility] 07-03-2023 22:57-0500 Body height 187.96 cm No Primary Care Physician [facility] 07-03-2023 22:57-0500 Body mass index (BMI) [Ratio] 45.6 kg/m2 No Primary Care Physician [facility] 07-03-2023 22:57-0500 Body weight 161.28 kg No Primary Care Physician [facility] 06-28-2023 16:27-0500 Diastolic Blood Pressure Non-Invasive 93 mm[Hg] DR LEDY REESE MD [facility] 06-28-2023 16:27-0500 Heart rate 92 /min DR LEDY REESE MD [facility] 06-28-2023 16:27-0500 Respiratory rate 18 /min DR LEDY REESE MD [facility] 06-28-2023 16:27-0500 Systolic Blood Pressure Non-Invasive 133 mm[Hg] DR LEDY REESE MD [facility] 06-28-2023 14:04-0500 Blood Pressure Cuff Size DR LEDY REESE MD [facility] 06-28-2023 14:04-[address] LEDY REESE MD [facility] 06-28-2023 14:04-[address] LEDY REESE MD [facility] 06-28-2023 14:04-0500 Body height [address] LEDY REESE MD [facility] 06-28-2023 14:04-0500 Body temperature 97.7 [degF] DR LEDY REESE MD [facility] 06-28-2023 14:04-0500 Body weight 136.[address] LEDY REESE MD [facility] 06-28-2023 14:04-0500 Diastolic Blood Pressure Non-Invasive 89 mm[Hg] DR LEDY REESE MD [facility] 06-28-2023 14:04-0500 Heart rate 108 /min DR LEDY REESE MD [facility] 06-28-2023 14:04-0500 Respiratory rate 22 /min DR LEDY REESE MD [facility] 06-28-2023 14:04-0500 Systolic Blood Pressure Non-Invasive 141 mm[Hg] DR LEDY REESE MD [facility] 06-12-2023 09:46-0500 Body mass index (BMI) [Ratio] 44.5 kg/m2 No Primary Care Physician [facility] 06-12-2023 09:46-0500 Body temperature 97.1 [degF] No Primary Care Physician [facility] 06-12-2023 09:46-0500 Body weight 157.39 kg No Primary Care Physician [facility] 06-12-2023 09:46-0500 Diastolic blood pressure 91 mm[Hg] No Primary Care Physician [facility] 06-12-2023 09:46-0500 Heart rate 79 /min No Primary Care Physician [facility] 06-12-2023 09:46-0500 Respiratory rate 18 /min No Primary Care Physician [facility] 06-12-2023 09:46-0500 SaO2% (BldA) [Mass fraction] 100 % No Primary Care Physician [facility] 06-12-2023 09:46-0500 Systolic blood pressure 130 mm[Hg] No Primary Care Physician [facility] 06-08-2023 19:34-0500 Diastolic Blood Pressure Non-Invasive 85 mm[Hg] DR PAUL DOBSON DO [facility] 06-08-2023 19:34-0500 Heart rate 87 /min DR PAUL DOBSON DO [facility] 06-08-2023 19:34-0500 Respiratory rate 18 /min DR PAUL DOBSON DO [facility] 06-08-2023 19:34-0500 Systolic Blood Pressure Non-Invasive 146 mm[Hg] DR PAUL DOBSON DO [facility] 06-08-2023 17:51-0500 Blood Pressure Cuff Size DR PAUL DOBSON DO [facility] 06-08-2023 17:51-[address] PAUL DOBSON DO [facility] 06-08-2023 17:51-[address] PAUL DOBSON DO [facility] 06-08-2023 17:51-0500 Body temperature 98.78 [degF] DR PAUL DOBSON DO [facility] 06-08-2023 17:51-0500 Diastolic Blood Pressure Non-Invasive 80 mm[Hg] DR PAUL DOBSON DO [facility] 06-08-2023 17:51-0500 Heart rate 96 /min DR PAUL DOBSON DO [facility] 06-08-2023 17:51-0500 Respiratory rate 18 /min DR PAUL DOBSON DO [facility] 06-08-2023 17:51-0500 Systolic Blood Pressure Non-Invasive 113 mm[Hg] DR PAUL DOBSON DO [facility] 06-01-2023 01:12-0500 Body height 185.42 cm [facility] 06-01-2023 01:12-0500 Body mass index (BMI) [Ratio] 46.3 kg/m2 [facility] 06-01-2023 01:12-0500 Body temperature 98.4 [degF] [facility] 06-01-2023 01:12-0500 Body weight 159.4 kg [facility] 06-01-2023 01:12-0500 Diastolic blood pressure 96 mm[Hg] [facility] 06-01-2023 01:12-0500 Heart rate 96 /min [facility] 06-01-2023 01:12-0500 Respiratory rate 20 /min [facility] 06-01-2023 01:12-0500 SaO2% (BldA) [Mass fraction] 99 % [facility] 06-01-2023 01:12-0500 Systolic blood pressure 157 mm[Hg] [facility] 05-16-2023 22:40-0500 Diastolic Blood Pressure Non-Invasive 80 mm[Hg] [facility] 05-16-2023 22:40-0500 Heart rate 94 /min TOI [facility] 05-16-2023 22:40-0500 Respiratory rate 18 /min TOI [facility] 05-16-2023 22:40-0500 Systolic Blood Pressure Non-Invasive 132 mm[Hg] [facility] 05-16-2023 21:30-0500 Heart rate 98 /min TOI REICHFIELD DO [facility] 05-16-2023 21:30-0500 Respiratory rate 16 /min TOI REICHFIELD DO [facility] 05-16-2023 21:20-0500 Reason For Taking VItal Signs TOI REICHFIELD DO [facility] 05-16-2023 20:06-0500 Body height 188 cm TOI REICHFIELD DO [facility] 05-16-2023 20:06-0500 Body temperature 98.42 [degF] TOI REICHFIELD DO [facility] 05-16-2023 20:06-0500 Body weight 134.1 kg TOI REICHFIELD DO [facility] 05-16-2023 20:06-0500 Diastolic Blood Pressure Non-Invasive 85 mm[Hg] TOI REICHFIELD DO [facility] 05-16-2023 20:06-0500 Heart rate 98 /min TOI REICHFIELD DO [facility] 05-16-2023 20:06-0500 Respiratory rate 18 /min TOI REICHFIELD DO [facility] 05-16-2023 20:06-0500 Systolic Blood Pressure Non-Invasive 138 mm[Hg] TOI REICHFIELD DO [facility] 02-12-2023 20:36-0400 Diastolic Blood Pressure Non-Invasive 90 1 TOI REICHFIELD DO [facility] 02-12-2023 20:36-0400 Heart rate 77 /min TOI REICHFIELD DO [facility] 02-12-2023 20:36-0400 Reason For Taking VItal Signs TOI REICHFIELD DO [facility] 02-12-2023 20:36-0400 Respiratory rate 20 /min TOI REICHFIELD DO [facility] 02-12-2023 20:36-0400 Systolic Blood Pressure Non-Invasive 130 1 TOI REICHFIELD DO [facility] 02-12-2023 19:10-0400 Diastolic Blood Pressure Non-Invasive 92 1 TOI REICHFIELD DO [facility] 02-12-2023 19:10-0400 Heart rate 75 /min TOI REICHFIELD DO [facility] 02-12-2023 19:10-0400 Reason For Taking VItal Signs TOI REICHFIELD DO [facility] 02-12-2023 19:10-0400 Respiratory rate 18 /min TOI REICHFIELD DO [facility] 02-12-2023 19:10-0400 Systolic Blood Pressure Non-Invasive 129 1 TOI REICHFIELD DO [facility] 02-12-2023 18:15-0400 Diastolic Blood Pressure Non-Invasive 88 1 TOI REICHFIELD DO [facility] 02-12-2023 18:15-0400 Heart rate 88 /min TOI REICHFIELD DO [facility] 02-12-2023 18:15-0400 Reason For Taking VItal Signs TOI REICHFIELD DO [facility] 02-12-2023 18:15-0400 Respiratory rate 20 /min TOI REICHFIELD DO [facility] 02-12-2023 18:15-0400 Systolic Blood Pressure Non-Invasive 137 1 TOI RELETICIAFIELD DO [facility] 02-12-2023 17:24-0400 Body temperature 98.24 [degF] [facility] 02-12-2023 17:24-0400 Body weight 149.9 kg [facility] 02-12-2023 17:24-0400 Heart rate 100 /min TOI [facility] 10-28-2022 11:57-0400 Blood Pressure Cuff Size ROSHNI SCHWARZENTRAUB PA-C [facility] 10-28-2022 11:57-0400 Blood Pressure Location ROSHNI SCHWARZENTRAUB PA-C [facility] 10-28-2022 11:57-0400 Blood Pressure Method ROSHNI SCHWARZENTRAUB PA-C [facility] 10-28-2022 11:57-0400 Body height 188 cm ROSHNI SCHWARZENTRA UB PA-C [facility] 10-28-2022 11:57-0400 Body temperature 97.88 [degF] ROSHNI SCHWARZENTRA UB PA-C [facility] 10-28-2022 11:57-0400 Body weight 134.1 kg ROSHNI SCHWARZENTRA UB PA-C [facility] 10-28-2022 11:57-0400 Body weight 37.94 kg/m2 ROSHNI SCHWARZENTRA UB PA-C [facility] 10-28-2022 11:57-0400 Diastolic Blood Pressure Non-Invasive 87 1 ROSHNI SCHWARZENTRAUB PA-C [facility] 10-28-2022 11:57-0400 Heart rate 111 /min ROSHNI SAUERARzhiwo UB PA-C [facility] 10-28-2022 11:57-0400 Respiratory rate 18 /min ROSHNI CRISTIANEARzhiwo UB PA-C [facility] 10-28-2022 11:57-0400 Systolic Blood Pressure Non-Invasive 132 1 [place] SCHWARZENTRAUB PA-C [facility] 10-28-2022 01:45-0400 Body temperature 98.96 [degF] YARA HENSON MD [facility] 10-28-2022 01:45-0400 Diastolic Blood Pressure Non-Invasive 96 1 YARA HENSON MD [facility] 10-28-2022 01:45-0400 Heart rate 98 /min YARA HENSON MD [facility] 10-28-2022 01:45-0400 Respiratory rate 20 /min YARA HENSON MD [facility] 10-28-2022 01:45-0400 Systolic Blood Pressure Non-Invasive 143 1 YARA HENSON MD [facility] 10-21-2022 08:44-0400 Blood Pressure Cuff Size AVANI KEMIERS CHILDREN'S SERVICE WORKER-INVOICE CLERK [facility] 10-21-2022 08:44-0400 Blood Pressure Location AVANI KEMIERS CHILDREN'S SERVICE WORKER-INVOICE CLERK [facility] 10-21-2022 08:44-0400 Blood Pressure Method AVANI KEMIERS CHILDREN'S SERVICE WORKER-INVOICE CLERK [facility] 10-21-2022 08:44-0400 Body height 188 cm AVANI CANTOR CHILDREN'S SERVICE WORKER-INVOICE CLERK [facility] 10-21-2022 08:44-0400 Body temperature 98.42 [degF] AVANI CANTOR CHILDREN'S SERVICE WORKER-INVOICE CLERK [facility] 10-21-2022 08:44-0400 Body weight 134.1 kg AVANI MCMULLENERS CHILDREN'S SERVICE WORKER-INVOICE CLERK [facility] 10-21-2022 08:44-0400 Body weight 37.94 kg/m2 AVANI MCMULLENERS CHILDREN'S SERVICE WORKER-INVOICE CLERK [facility] 10-21-2022 08:44-0400 Diastolic Blood Pressure Non-Invasive 93 1 AVANI CANTOR CHILDREN'S SERVICE WORKER-INVOICE CLERK [facility] 10-21-2022 08:44-0400 Heart rate 88 /min AVANI CANTOR CHILDREN'S SERVICE WORKER-INVOICE CLERK [facility] 10-21-2022 08:44-0400 Respiratory rate 18 /min AVANI CANTOR CHILDREN'S SERVICE WORKER-INVOICE CLERK [facility] 10-21-2022 08:44-0400 Systolic Blood Pressure Non-Invasive 152 1 AVANI CANTOR CHILDREN'S SERVICE WORKER-INVOICE CLERK [facility] 09-12-2022 13:08-0400 Body height 188 cm [employer] UB PA-C [facility] 09-12-2022 13:08-0400 Body temperature 98.06 [degF] [employer] UB PA-C [facility] 09-12-2022 13:08-0400 Body weight 131.8 kg [employer] UB PA-C [facility] 09-12-2022 13:08-0400 Body weight 37.29 kg/m2 ROSHNI SCHWARZENTRA UB PA-C [facility] 09-12-2022 13:08-0400 Diastolic Blood Pressure Non-Invasive 95 1 ROSHNI SCHWARZENTRAUB PA-C [facility] 09-12-2022 13:08-0400 Heart rate 90 /min [place] CRISTIANEARZENRemediation of [place] UB PA-C [facility] 09-12-2022 13:08-0400 Respiratory rate 18 /min [place] CRISTIANEARZENTRA UB PA-C [facility] 09-12-2022 13:08-0400 Systolic Blood Pressure Non-Invasive 148 1 [place] CRISTIANEARZENTRAUB PA-C [facility] 09-05-2022 10:00-0400 Blood Pressure Cuff Size AVANI KEMIERS CHILDREN'S SERVICE WORKER-INVOICE CLERK [facility] 09-05-2022 10:00-0400 Blood Pressure Location AVANI KEMIERS CHILDREN'S SERVICE WORKER-INVOICE CLERK [facility] 09-05-2022 10:00-0400 Blood Pressure Method AVANI KEMIERS CHILDREN'S SERVICE WORKER-INVOICE CLERK [facility] 09-05-2022 10:00-0400 Body height 188 cm AVANI BATERS CHILDREN'S SERVICE WORKER-INVOICE CLERK [facility] 09-05-2022 10:00-0400 Body temperature 98.6 [degF] AVANI BATERS CHILDREN'S SERVICE WORKER-INVOICE CLERK [facility] 09-05-2022 10:00-0400 Body weight 135 kg AVANI KEMIERS CHILDREN'S SERVICE WORKER-INVOICE CLERK [facility] 09-05-2022 10:00-0400 Body weight 38.2 kg/m2 AVANI BATERS CHILDREN'S SERVICE WORKER-INVOICE CLERK [facility] 09-05-2022 10:00-0400 Diastolic Blood Pressure Non-Invasive 91 1 AVANI BATERS CHILDREN'S SERVICE WORKER-INVOICE CLERK [facility] 09-05-2022 10:00-0400 Heart rate 88 /min AVANI CANTOR CHILDREN'S SERVICE WORKER-INVOICE CLERK [facility] 09-05-2022 10:00-0400 Respiratory rate 18 /min AVANI CANTOR CHILDREN'S SERVICE WORKER-INVOICE CLERK [facility] 09-05-2022 10:00-0400 Systolic Blood Pressure Non-Invasive 119 1 AVANI CANTOR CHILDREN'S SERVICE WORKER-INVOICE CLERK [facility] 08-28-2022 21:45-0400 Diastolic Blood Pressure Non-Invasive 84 1 ANJEL FRIAST DO [facility] 08-28-2022 21:45-0400 Heart rate 86 /min ANJEL FRIAST DO [facility] 08-28-2022 21:45-0400 Respiratory rate 18 /min ANJEL FRIAST DO [facility] 08-28-2022 21:45-0400 Systolic Blood Pressure Non-Invasive 136 1 ANJEL FRIAST DO [facility] 08-28-2022 19:06-0400 Body temperature 97.88 [degF] ANJEL FRIAST DO [facility] 08-28-2022 19:06-0400 Body weight 136.4 kg ANJEL FROMCAMT DO [facility] 08-28-2022 19:06-0400 Diastolic Blood Pressure Non-Invasive 84 1 ANJEL FRIAST DO [facility] 08-28-2022 19:06-0400 Heart rate 100 /min ANJEL FRIAST DO [facility] 08-28-2022 19:06-0400 Respiratory rate 20 /min ANJEL FROMMELT DO [facility] 08-28-2022 19:06-0400 Systolic Blood Pressure Non-Invasive 141 1 ANJEL Lessonwriter [facility] 08-18-2022 15:50-0500 Diastolic Blood Pressure Non-Invasive 80 1 ANJEL Lessonwriter [facility] 08-18-2022 15:50-0500 Heart rate 81 /min ANJEL Lessonwriter [facility] 08-18-2022 15:50-0500 Reason For Taking VItal Signs ANJEL Lessonwriter [facility] 08-18-2022 15:50-0500 Respiratory rate 16 /min ANJEL Lessonwriter [facility] 08-18-2022 15:50-0500 Systolic Blood Pressure Non-Invasive 142 1 ANJEL Lessonwriter [facility] 08-18-2022 14:01-0500 Diastolic Blood Pressure Non-Invasive 89 1 ANJEL Lessonwriter [facility] 08-18-2022 14:01-0500 Systolic Blood Pressure Non-Invasive 142 1 ANJEL Lessonwriter [facility] 08-18-2022 13:55-0500 Body temperature 97.88 [degF] ANJEL Lessonwriter [facility] 08-18-2022 13:55-0500 Diastolic Blood Pressure Non-Invasive 86 1 ANJEL Lessonwriter [facility] 08-18-2022 13:55-0500 Heart rate 87 /min ANJEL Lessonwriter [facility] 08-18-2022 13:55-0500 Respiratory rate 12 /min ANJEL Lessonwriter [facility] 08-18-2022 13:55-0500 Systolic Blood Pressure Non-Invasive 161 1 ANJEL PEÑA DO [facility] 08-18-2022 11:32-0500 Body temperature 98.42 [degF] ANJEL PEÑA DO [facility] 08-18-2022 11:32-0500 Body weight 153.5 kg ANJEL PEÑA DO [facility] 08-18-2022 11:32-0500 Heart rate 96 /min ANJEL PEÑA DO [facility] 08-18-2022 11:32-0500 Respiratory rate 18 /min ANJEL [facility] 07-22-2022 13:54-0500 Diastolic Blood Pressure Non-Invasive 83 1 BLANCO SHAW MD [facility] 07-22-2022 13:54-0500 Heart rate 86 /min BLANCO SHAW MD [facility] 07-22-2022 13:54-0500 Respiratory rate 16 /min BLANCO SHAW MD [facility] 07-22-2022 13:54-0500 Systolic Blood Pressure Non-Invasive 135 1 BLANCO SHAW MD [facility] 07-22-2022 12:30-0500 Diastolic Blood Pressure Non-Invasive 89 1 BLANCO SHAW MD [facility] 07-22-2022 12:30-0500 Heart rate 91 /min BLANCO SHAW MD [facility] 07-22-2022 12:30-0500 Respiratory rate 16 /min BLANCO SHAW MD [facility] 07-22-2022 12:30-0500 Systolic Blood Pressure Non-Invasive 136 1 BLANCO SHAW MD [facility] [facility] 07-22-2022 11:30-0500 Diastolic Blood Pressure Non-Invasive 84 1 BLANCO SHAW MD [facility] 07-22-2022 11:30-0500 Heart rate 100 /min BLANCO SHAW MD [facility] 07-22-2022 11:30-0500 Respiratory rate 20 /min BLANCO SHAW MD [facility] 07-22-2022 11:30-0500 Systolic Blood Pressure Non-Invasive 142 1 BLANCO SHAW MD [facility] 07-22-2022 10:12-0500 Body height 188 cm BLANCO SHAW MD [facility] 07-22-2022 10:12-0500 Body temperature 98.96 [degF] BLANCO SHAW MD [facility] 07-22-2022 10:12-0500 Body weight 132 kg BLANCO SHAW MD [facility] 07-18-2022 14:20-0500 Diastolic Blood Pressure Non-Invasive 95 1 AARON DUQUE MD [facility] 07-18-2022 14:20-0500 Heart rate 99 /min AARON DUQUE MD [facility] 07-18-2022 14:20-0500 Respiratory rate 16 /min AARON DUQUE MD [facility] 07-18-2022 14:20-0500 Systolic Blood Pressure Non-Invasive 130 1 AARON DUQUE MD [facility] 02-02-2023 13:50-0500 Diastolic Blood Pressure Non-Invasive 88 1 AARON DUQUE MD [facility] 07-18-2022 13:50-0500 Heart rate 105 /min AARON DUQUE MD [facility] 07-18-2022 13:50-0500 Respiratory rate 16 /min AARON DUQUE MD [facility] 07-18-2022 13:50-0500 Systolic Blood Pressure Non-Invasive 137 1 AARON DUQUE MD [facility] 07-18-2022 13:20-0500 Diastolic Blood Pressure Non-Invasive 77 1 AARON DUQUE MD [facility] 07-18-2022 13:20-0500 Heart rate 104 /min AARON DUQUE MD [facility] 07-18-2022 13:20-0500 Respiratory rate 16 /min AARON DUQUE MD [facility] 07-18-2022 13:20-0500 Systolic Blood Pressure Non-Invasive 144 1 AARON DUQUE MD [facility] 07-18-2022 13:15-0500 Heart rate 99 /min AARON DUQUE MD [facility] 07-18-2022 13:00-0500 Heart rate 102 /min AARON DUQUE MD [facility] 07-18-2022 11:28-0500 Body temperature 97.88 [degF] AARON DUQUE MD [facility] 07-18-2022 11:25-0500 Respiratory Rate - Anes 0 br/min AARON DUQUE MD [facility] 07-18-2022 11:20-0500 Respiratory Rate - Anes 0 br/min AARON DUQUE MD [facility] 07-18-2022 11:15-0500 Respiratory Rate - Anes 10 br/min AARON DUQUE MD [facility] 07-18-2022 06:48-0500 Body height 188 cm AARON DUQUE MD [facility] 07-18-2022 06:48-0500 Body temperature 98.96 [degF] AARON DUQUE MD [facility] 07-18-2022 06:48-0500 Body weight 134 kg AARON DUQUE MD [facility] 07-18-2022 06:48-0500 Heart rate 99 /min AARON DUQUE MD [facility] 07-15-2022 01:50-0500 Diastolic Blood Pressure Non-Invasive 79 1 DAVONTE ONEILL MD [facility] 07-15-2022 01:50-0500 Heart rate 93 /min DAVONTE Segura [facility] 07-15-2022 01:50-0500 Respiratory rate 15 /min DAVONTE Segura [facility] 07-15-2022 01:50-0500 Systolic Blood Pressure Non-Invasive 124 1 DAVONTE ONEILL MD [facility] 07-15-2022 00:30-0500 Body temperature 97.88 [degF] DAVONTE Segura [facility] 07-15-2022 00:30-0500 Diastolic Blood Pressure Non-Invasive 91 1 DAVONTE ONEILL MD [facility] 07-15-2022 00:30-0500 Heart rate 101 /min DAVONTE ONEILL M D [facility] 07-15-2022 00:30-0500 Respiratory rate 18 /min DAVONTE ONEILL M D [facility] 07-15-2022 00:30-0500 Systolic Blood Pressure Non-Invasive 152 1 DAVONTE ONEILL MD [facility] 07-09-2022 13:12-0500 Blood Pressure Cuff Size AARON DUQUE MD [facility] 07-09-2022 13:12-0500 Blood Pressure Location AARON DUQUE MD [facility] 07-09-2022 13:12-0500 Blood Pressure Method AARON DUQUE MD [facility] 07-09-2022 13:12-0500 Body height 188 cm AARON DUQUE MD [facility] 07-09-2022 13:12-0500 Body weight 134.1 kg AARON DUQUE MD [facility] 07-09-2022 13:12-0500 Body weight 37.94 kg/m2 AARON DUQUE MD [facility] 07-09-2022 13:12-0500 Diastolic Blood Pressure Non-Invasive 82 1 AARON DUQUE MD [facility] 07-09-2022 13:12-0500 Heart rate 91 /min AARON DUQUE MD [facility] 07-09-2022 13:12-0500 Systolic Blood Pressure Non-Invasive 122 1 AARON DUQUE MD [facility] 06-27-2022 23:59-0500 Diastolic Blood Pressure Non-Invasive 75 1 YARA HENSON MD [facility] 06-27-2022 23:59-0500 Heart rate 85 /min YARA HENSON MD [facility] 06-27-2022 23:59-0500 Reason For Taking VItal Signs YARA HENSON MD [facility] 06-27-2022 23:59-0500 Respiratory rate 18 /min YARA HENSON MD [facility] 06-27-2022 23:59-0500 Systolic Blood Pressure Non-Invasive 130 1 YARA HENSON MD [facility] 06-27-2022 21:38-0500 Body temperature 97.52 [degF] YARA HENSON MD [facility] 06-27-2022 21:38-0500 Diastolic Blood Pressure Non-Invasive 100 1 YARA HENSON MD [facility] 06-27-2022 21:38-0500 Heart rate 105 /min YARA HENSON MD [facility] 06-27-2022 21:38-0500 Respiratory rate 24 /min YARA HENSON MD [facility] 06-27-2022 21:38-0500 Systolic Blood Pressure Non-Invasive 157 1 YARA HENSON MD [facility] 06-19-2022 19:36-0500 Body temperature 99.1 [degF] [facility] [place] 06-19-2022 19:36-0500 Diastolic blood pressure 87 mm[Hg] [facility] 06-19-2022 19:36-0500 Heart rate 110 /min [facility] [place] 06-19-2022 19:36-0500 Respiratory rate 18 /min [facility] [place] 06-19-2022 19:36-0500 SaO2% (BldA) [Mass fraction] 96 % [facility] [place] 06-19-2022 19:36-0500 Systolic blood pressure 126 mm[Hg] [facility] 06-01-2022 00:00-0500 Diastolic Blood Pressure Non-Invasive 88 1 YARA HENSON MD [facility] 06-01-2022 00:00-0500 Heart rate 85 /min YARA HENSON MD [facility] 06-01-2022 00:00-0500 Respiratory rate 16 /min YARA HENSON MD [facility] 06-01-2022 00:00-0500 Systolic Blood Pressure Non-Invasive 125 1 YARA HENSON MD [facility] 05-31-2022 21:41-0500 Body height 190.5 cm YARA HENSON MD [facility] 05-31-2022 21:41-0500 Body temperature 97.88 [degF] YARA HENSON MD [facility] 05-31-2022 21:41-0500 Body weight 127.3 kg YARA HENSON MD [facility] 05-31-2022 21:41-0500 Diastolic Blood Pressure Non-Invasive 89 1 YARA HENSON MD [facility] 05-31-2022 21:41-0500 Heart rate 90 /min YARA HENSON MD [facility] 05-31-2022 21:41-0500 Respiratory rate 18 /min YARA HENSON MD [facility] 05-31-2022 21:41-0500 Systolic Blood Pressure Non-Invasive 127 1 YARA HENSON MD [facility] 05-27-2022 18:03-0500 Body height 180.[address] ABDI AGUIRRE MD [facility] 05-27-2022 18:03-0500 Body temperature 98.96 [degF] DR ABDI AGUIRRE MD [facility] 05-27-2022 18:03-0500 Body weight 127.[address] ABDI AGUIRRE MD [facility] 05-27-2022 18:03-0500 Diastolic Blood Pressure Non-Invasive [address] ABDI AGUIRRE MD [facility] 05-27-2022 18:03-0500 Heart rate 118 /min DR ABDI AGUIRRE MD [facility] 05-27-2022 18:03-0500 Respiratory rate 20 /min DR ABDI AGUIRRE MD [facility] 05-27-2022 18:03-0500 Systolic Blood Pressure Non-Invasive [address] ABDI AGUIRRE MD [facility] 04-25-2022 17:56-0500 Diastolic blood pressure 98 mm[Hg] [facility] 04-25-2022 17:56-0500 Heart rate 90 /min [facility] 04-25-2022 17:56-0500 Respiratory rate 18 /min [facility] [email or web address] 04-25-2022 17:56-0500 SaO2% (BldA) [Mass fraction] 100 % [facility] [email or web address] 04-25-2022 17:56-0500 Systolic blood pressure 156 mm[Hg] [facility] [email or web address] 04-25-2022 15:04-0500 Body height 188 cm [facility] [email or web address] 04-25-2022 15:04-0500 Body mass index (BMI) [Ratio] 34.67 kg/m2 [facility] [email or web address] 04-25-2022 15:04-0500 Body temperature 97.11 [degF] [facility] [employer] 04-25-2022 15:04-0500 Body weight 122.47 kg [facility] 04-03-2022 14:31-0400 Diastolic blood pressure 90 mm[Hg] Pcp No [facility] 04-03-2022 14:31-0400 Heart rate 100 /min Pcp No [facility] [email or web address] 04-03-2022 14:31-0400 Respiratory rate 16 /min Pcp No [facility] [employer] 04-03-2022 14:31-0400 SaO2% (BldA) [Mass fraction] 100 % [facility]cp No [facility] 04-03-2022 14:31-0400 Systolic blood pressure 140 mm[Hg] Pcp No [facility] 04-03-2022 14:14-0400 Body temperature 98.2 [degF] Pcp No [facility] 03-15-2022 00:52-0400 Diastolic blood pressure 75 mm[Hg] JORGITO CANNON DO [facility] 03-15-2022 00:52-0400 Heart rate 97 /min JORGITO CANNON DO [facility] 03-15-2022 00:52-0400 Respiratory rate 16 /min JORGITO CANNON DO [facility] 03-15-2022 00:52-0400 Systolic blood pressure 121 mm[Hg] JORGITO CANNON DO [facility] 03-14-2022 22:56-0400 Body temperature 98.24 [degF] JORGITO CANNON DO [facility] 03-14-2022 22:56-0400 Diastolic blood pressure 81 mm[Hg] JORGITO CANNON DO [facility] 03-14-2022 22:56-0400 Heart rate 107 /min JORGITO CANNON DO [facility] 03-14-2022 22:56-0400 Respiratory rate 18 /min JORGITO CANNON DO [facility] 03-14-2022 22:56-0400 Systolic blood pressure 119 mm[Hg] JORGITO CANNON DO [facility] 03-08-2022 00:57-0400 Body temperature 98.29 [degF] Joseluis Darrion DO Work Phone: [facility] 03-08-2022 00:57-0400 Diastolic blood pressure 89 mm[Hg] Joseluis Darrion DO Work Phone: [facility] 03-08-2022 00:57-0400 Heart rate 100 /min Joseluis Darrion DO Work Phone: [facility] 03-08-2022 00:57-0400 Respiratory rate 18 /min Joseluis Darrion DO Work Phone: [facility] 03-08-2022 00:57-0400 SaO2% (BldA) [Mass fraction] 98 % Joseluis Darrion DO Work Phone: [facility] 03-08-2022 00:57-0400 Systolic blood pressure 134 mm[Hg] Joseluis Darrion DO Work Phone: [facility] 01-03-2022 09:42-0400 Body height 185.4 cm Ibrahima Schaefer MD Work Phone: [facility] 01-03-2022 09:42-0400 Body temperature 98.29 [degF] Ibrahima Schaefer MD Work Phone: [facility] 01-03-2022 09:42-0400 Body weight 144.7 kg Ibrahima Schaefer MD Work Phone: [facility] 01-03-2022 09:42-0400 Diastolic blood pressure 76 mm[Hg] Ibrahima Schaefer MD Work Phone: [facility] 01-03-2022 09:42-0400 Heart rate 102 /min Ibrahima Schaefer MD Work Phone: [facility] 01-03-2022 09:42-0400 Respiratory rate 18 /min Ibrahima Schaefer MD Work Phone: [facility] 01-03-2022 09:42-0400 SaO2% (BldA) [Mass fraction] 97 % Ibrahima Schaefer MD Work Phone: [facility] 01-03-2022 09:42-0400 Systolic blood pressure 124 mm[Hg] Ibrahima Schaefer MD Work Phone: [facility] 01-01-2022 20:51-0400 Diastolic blood pressure 86 mm[Hg] [facility] Work Phone: 01-01-2022 20:51-0400 Heart rate 83 /min [facility] Work Phone: 01-01-2022 20:51-0400 Respiratory rate 18 /min [facility] Work Phone: 01-01-2022 20:51-0400 SaO2% (BldA) [Mass fraction] 100 % [facility] Work Phone: 01-01-2022 20:51-0400 Systolic blood pressure 133 mm[Hg] [facility] Work Phone: 01-01-2022 17:58-0400 Body height 185.42 cm [facility] Work Phone: 01-01-2022 17:58-0400 Body mass index (BMI) [Ratio] 42.1 kg/m2 [facility] Work Phone: 01-01-2022 17:58-0400 Body temperature 98.1 [degF] [facility] Work Phone: 01-01-2022 17:58-0400 Body weight 145 kg [facility] Work Phone: 12-21-2021 22:34-0400 Diastolic blood pressure 83 mm[Hg] ANJEL FROMMELT DO [facility] 12-21-2021 22:34-0400 Heart rate 77 /min ANJEL FROMMELT DO [facility] 12-21-2021 22:34-0400 Reason For Taking VItal Signs ANJEL FROMMELT DO [facility] 12-21-2021 22:34-0400 Respiratory rate 20 /min ANJEL FROMMELT DO [facility] 12-21-2021 22:34-0400 Systolic blood pressure 138 mm[Hg] ANJEL FROMMELT DO [facility] 12-21-2021 21:27-0400 Diastolic blood pressure 93 mm[Hg] ANJEL FROMMELT DO [facility] 12-21-2021 21:27-0400 Heart rate 87 /min ANJEL FROMMELT DO [facility] 12-21-2021 21:27-0400 Reason For Taking VItal Signs ANJEL FROMMELT DO [facility] 12-21-2021 21:27-0400 Respiratory rate 20 /min ANJEL FROMMELT DO [facility] 12-21-2021 21:27-0400 Systolic blood pressure 144 mm[Hg] ANJEL FROMMELT DO [facility] 12-21-2021 20:43-0400 Body temperature 99.14 [degF] ANJEL FRIAST DO [facility] 12-21-2021 20:43-0400 Diastolic blood pressure 89 mm[Hg] ANJEL FROMMELT DO [facility] 12-21-2021 20:43-0400 Heart rate 96 /min ANJEL FRIAST DO [facility] 12-21-2021 20:43-0400 Respiratory rate 22 /min ANJEL FRIAST DO [facility] 12-21-2021 20:43-0400 Systolic blood pressure 172 mm[Hg] ANJEL FRIAST DO [facility] 11-30-2021 20:30-0400 Diastolic blood pressure 82 mm[Hg] YARA HENSON MD [facility] 11-30-2021 20:30-0400 Heart rate 78 /min YARA HENSON MD [facility] 11-30-2021 20:30-0400 Mean blood pressure 101 mm[Hg] YARA HENSON MD [facility] 11-30-2021 20:30-0400 Respiratory rate 18 /min YARA HENSON MD [facility] 11-30-2021 20:30-0400 Systolic blood pressure 140 mm[Hg] YARA HENSON MD [facility] 11-30-2021 19:12-0400 Body temperature 98.06 [degF] YARA HENSON MD [facility] 11-30-2021 19:12-0400 Diastolic blood pressure 89 mm[Hg] YARA HENSON MD [facility] 11-30-2021 19:12-0400 Heart rate 87 /min YARA HENSON MD [facility] 11-30-2021 19:12-0400 Respiratory rate 18 /min YARA HENSON MD [facility] 11-30-2021 19:12-0400 Systolic blood pressure 148 mm[Hg] YARA HENSON MD [facility] 11-14-2021 13:10-0400 Body height 185.4 cm AARON DUQUE MD [facility] 11-14-2021 13:10-0400 Body weight 140.9 kg AARON DUQUE MD [facility] 11-14-2021 13:10-0400 Body weight 40.99 kg/m2 AARON DUQUE MD [facility] 11-14-2021 13:10-0400 diastolic 74 mm[Hg] AARON DUQUE MD [facility] 11-14-2021 13:10-0400 Heart rate 103 /min AARON DUQUE MD [facility] 11-14-2021 13:10-0400 systolic 128 mm[Hg] AARON DUQUE MD [facility] 10-06-2021 14:52-0400 Body temperature 98.96 [degF] ASHLYN BLISS MD [facility] 10-06-2021 14:52-0400 Diastolic blood pressure 89 mm[Hg] ASHLYN BLISS MD [facility] 10-06-2021 14:52-0400 Heart rate 112 /min ASHLYN BLISS MD [facility] 10-06-2021 14:52-0400 Respiratory rate 18 /min ASHLYN BLISS MD [facility] 10-06-2021 14:52-0400 Systolic blood pressure 148 mm[Hg] AHSLYN BLISS MD [facility] Encounters Encounter Date Encounter Type Care Provider Facility Start: 03-02-2025 End: 03-02-2025 Emergency department patient visit VIOLA STARKEY Facility:[facility] Start: 03-01-2025 End: 03-02-2025 Emergency department patient visit BLANCO SHAW MD [facility] Start: 02-27-2025 End: 02-27-2025 Emergency department patient visit Viola Starkey [employer] Work Phone: -Emergency Department Work Phone: Start: 02-17-2025 End: 02-18-2025 Emergency department patient visit Viola Lalito [employer] Work Phone: -Emergency Department Work Phone: Start: 01-25-2025 End: 01-26-2025 Emergency department patient visit Viola Lalito [employer] Work Phone: -Emergency Department Work Phone: Start: 12-29-2024 End: 12-29-2024 Emergency department patient visit Viola Lalito [employer] Work Phone: -Emergency Department Work Phone: Start: 12-08-2024 End: 12-09-2024 Emergency department patient visit Dr. Cristian Tate Work Phone: -Emergency Department Work Phone: Start: 12-06-2024 End: 12-07-2024 Emergency department patient visit Dr. Cristian Tate Work Phone: -Emergency Department Work Phone: Start: 09-19-2024 End: 09-19-2024 Emergency department patient visit Dr. 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 Facility:[facility] Start: 09-07-2024 End: 09-08-2024 Emergency department patient visit SHANIKA TIRADO DO [facility] Start: 08-24-2024 End: 08-24-2024 Emergency department patient visit No Primary Care Physician -Emergency Department Work Phone: Start: 08-13-2024 End: 08-13-2024 Office outpatient new 45 minutes Stephon Benavides MD Work Phone: [facility] Comment on above: History of abdominal hernia Start: 06-29-2024 End: 06-29-2024 Subsequent hospital visit by physician Rad External Film EF RAD EXTERNAL FILM VIRTUAL Comment on above: Arrived Start: 06-29-2024 End: 06-29-2024 Office outpatient new 45 minutes Jonathan Gonzalez MD Work Phone: [facility] Comment on above: Periumbilical abdomi nal pain (Primary Dx); History of abdominal hernia Start: 05-16-2024 End: 05-16-2024 Emergency department patient visit RADHA YI DO [facility] Start: 10-10-2023 Telephone encounter Juliocesar Borrero MD, PhD Work Phone: [facility] Comment on above: Care Coordination Left lateral abdomin al pain (Primary Dx) Start: 10-07-2023 End: 10-07-2023 Evaluation and management of inpatient TRINIDAD CAMILO MEHNAZ RICHARDSON Facility:[facility] Start: 10-07-2023 Orders Only Trinidad Richardson MD Work Phone: General Surgery Comment on above: Left lower quadrant abdominal pain (Primary Dx) Start: 09-16-2023 Encounter for other preprocedural examination TRINIDAD RICHARDSON [facility] Start: 09-16-2023 End: 09-17-2023 ambulatory TRINIDAD DARBY DYLAN Facility:[facility] Start: 09-16-2023 Encounter for other preprocedural examination TRINIDAD RICHARDSON [facility] Start: 09-16-2023 End: 09-17-2023 ambulatory TRINIDAD DARBY DYLAN Facility:[facility] Start: 09-16-2023 End: 09-16-2023 PAT Pacc Main 6 Work Phone: Pre Anesthesia Comment on above: Pre-op evaluation (P rimary Dx); Post traumatic seizure disorder (HCC); Morbid obesity (HCC); Tobacco use Start: 09-16-2023 End: 09-16-2023 Preprocedural examination done Pac Main 6 Work Phone: [facility] Work Phone: Start: 09-11-2023 End: 09-11-2023 Emergency department patient visit DAVONTE ONEILL MD Facility:[facility] Start: 09-11-2023 End: 09-11-2023 Emergency department patient visit DAVONTE ONEILL MD [facility] Start: 08-27-2023 End: 08-27-2023 ambulatory VIOLA STARKEY [employer]S SERVICE WORKER-INVOICE CLERK Facility:[facility] Start: 08-27-2023 End: 08-27-2023 Minor Procedure REYES MOORE DO [facility] Start: 08-06-2023 End: 08-06-2023 ambulatory SURESH GRIFFITHS Facility:[facility] Start: 08-06-2023 End: 08-06-2023 Patient encounter procedure Vicki Meraz CHILDR[employer]'S SERVICE WORKER.INVOICE CLERK, DNP Work Phone: Neurology Pain Comment on above: Abdominal pain, unsp ecified abdominal location (Primary Dx) Start: 07-21-2023 ambulatory Trinidad Richardson MD Work Phone: [facility] Comment on above: 4.23.24 Cure (Resect ion of Mesh 2 hours los 0) Start: 07-21-2023 Preprocedural examination done Trinidad Richardson MD Work Phone: [facility] Start: 07-18-2023 Orders Only Suresh Griffiths [facility] SERVICE WORKER.INVOICE CLERK Work Phone: General Surgery Comment on above: Left lower quadrant abdominal pain (Primary Dx) Start: 07-07-2023 End: 07-08-2023 ambulatory TRINIDAD RICHARDSON Facility:[facility] Start: 07-03-2023 End: 07-04-2023 Emergency department patient visit No Primary Care Physician [facility] Work Phone: Start: 06-28-2023 End: 06-28-2023 Emergency department patient visit DR LEDY REESE MD Facility:B Start: 06-28-2023 End: 06-28-2023 Emergency department patient visit DR LEDY REESE MD [facility] Start: 06-12-2023 End: 06-12-2023 Patient encounter procedure No Primary Care Physician [facility] Work Phone: Start: 06-08-2023 End: 06-08-2023 Emergency department patient visit PAUL DOBSON Facility:B Start: 06-08-2023 End: 06-08-2023 Emergency department patient visit DR PAUL DOBSON DO [facility] Start: 06-01-2023 End: 06-01-2023 Emergency department patient visit [facility] Work Phone: Start: 05-17-2023 End: 05-18-2023 [facility] Start: 05-16-2023 End: 05-17-2023 Emergency department [facility] Start: 05-16-2023 End: 05-16-2023 Emergency department [facility] Start: 02-23-2023 End: 02-23-2023 Emergency department patient visit [facility] Start: 02-12-2023 End: 02-12-2023 Emergency department [facility] Start: 02-12-2023 End: 02-12-2023 Emergency department [facility] Start: 10-28-2022 End: 10-29-2022 ambulatory ROSHNI FLORES PA-Marielos Facility:A Start: 10-28-2022 End: 10-28-2022 Patient encounter procedure ROSHNI REYES-Marielos [facility] Start: 10-28-2022 End: 10-28-2022 Emergency department patient visit YARA HENSON MD Facility:B Start: 10-28-2022 End: 10-28-2022 Emergency department patient visit YARA HENSON MD [facility] Start: 10-21-2022 End: 10-22-2022 ambulatory AVANI CANTOR [facility] WORKER-INVOICE CLERK Facility:A Start: 10-21-2022 End: 10-21-2022 Patient encounter procedure AVANI CANTOR [facility] WORKER-INVOICE CLERK [facility] Start: 10-20-2022 End: 10-20-2022 Emergency department patient visit DR LEDY REESE MD Facility:B Start: 09-12-2022 End: 09-12-2022 Patient encounter procedure ROSHNI FLORES PA-C [facility] Start: 09-05-2022 End: 09-05-2022 Patient encounter procedure AVANI CANTOR [employer]S SERVICE WORKER-INVOICE CLERK [facility] Start: 08-28-2022 End: 08-28-2022 Emergency department [facility] Start: 08-18-2022 End: 08-18-2022 Emergency department [facility] Start: 07-22-2022 End: 07-22-2022 Emergency department patient visit BLANCO SHAW MD [facility] Start: 07-18-2022 End: 07-18-2022 SAME DAY STAY AARON DUQUE MD [facility] Start: 07-15-2022 End: 07-15-2022 Emergency department patient visit DAVONTE ONEILL MD [facility] Start: 07-09-2022 End: 07-09-2022 Admission to establishment AARON DUQUE MD [facility] Start: 06-27-2022 End: 06-28-2022 Emergency department patient visit YARA HENSON MD [facility] Start: 06-19-2022 End: 06-20-2022 Emergency department patient visit [facility] ED Comment on above: Seizure (CMS/HCC) (H CC) (Primary Dx) Start: 06-09-2022 End: 06-10-2022 Emergency department patient visit PHYSICIAN [facility] Start: 06-06-2022 End: 06-06-2022 Emergency department patient visit PHYSICIAN [facility] Start: 05-31-2022 End: 06-01-2022 Emergency department patient visit YARA HENSON MD [facility] Start: 05-27-2022 End: 05-27-2022 Emergency department patient visit DR ABDI AGUIRRE MD [facility] Start: 05-22-2022 End: 05-23-2022 Emergency department patient visit PATRICK DO [facility] Start: 04-25-2022 End: 04-25-2022 Emergency department patient visit PCP NO [facility] Start: 04-25-2022 End: 04-25-2022 Emergency department patient visit [facility] Emergency Department Comment on above: Acute pain of right shoulder (Primary Dx); Strain of right shoulder, initial encounter Start: 04-03-2022 End: 04-03-2022 Emergency department patient visit PCP NO [facility] Start: 04-03-2022 End: 04-03-2022 Emergency department patient visit Pcp No [facility] Emergency Department Comment on above: Injury of right wris t, initial encounter (Primary Dx) Start: 03-14-2022 End: 03-15-2022 Emergency department patient visit JORGITO CNANON DO [facility] Start: 03-08-2022 End: 03-08-2022 Emergency department patient visit UNKNOWN PROVIDER [facility] Start: 03-08-2022 End: 03-08-2022 Emergency department patient visit Joseluis Darrion DO Work Phone: [facility] Comment on above: Closed head injury, initial encounter (Primary Dx) Start: 01-03-2022 End: 01-03-2022 Patient encounter procedure Ibrahima Schaefer MD Work Phone: General Surgery Comment on above: Hematoma (Primary Dx ); Incisional hernia, without obstruction or gangrene Start: 01-01-2022 End: 01-01-2022 Emergency department patient visit [facility] Start: 12-21-2021 End: 12-21-2021 Emergency department patient visit ANJEL PEÑA DO [facility] Start: 11-30-2021 End: 11-30-2021 Emergency department patient visit YARA HENSON MD [facility] Start: 11-14-2021 End: 11-14-2021 Admission to establishment AARON DUQUE MD [facility] Start: 10-26-2021 End: 10-26-2021 Patient encounter procedure TRU TOUSSAINT CHILDREN'S SERVICE WORKER-INVOICE CLERK [facility] Start: 10-06-2021 End: 10-06-2021 Emergency department patient visit ASHLYN BLISS MD [facility] Start: 12-23-2016 End: 12-23-2016 Emergency department patient visit MILDRED GALLARDO [facility] Start: 12-16-2016 End: 12-16-2016 Emergency department patient visit JOSH HELTON Facility:[facility] Procedures Date Procedure Procedure Detail Performing Clinician Start: 02-27-2025 Estimated creatinine clearance Viola Starkey MEAL PACKER-C Work Phone: Start: 02-27-2025 Computed tomography of abdomen and pelvis with intravenous contrast Viola Starkey MEAL PACKER-C Work Phone: Start: 02-17-2025 Estimated creatinine clearance Viola Starkey MEAL PACKER-C Work Phone: Start: 01-25-2025 Estimated creatinine clearance Viola Starkey MEAL PACKER-C Work Phone: Start: 12-29-2024 Computed tomography of abdomen and pelvis with intravenous contrast Viola Starkey MEAL PACKER-C Work Phone: Start: 12-29-2024 Estimated creatinine clearance Viola Starkey MEAL PACKER-C Work Phone: Start: 12-09-2024 Estimated creatinine clearance [...] MD Work Phone: Start: 09-16-2023 Antibody screen TRINIDAD DANIELLE Comment on above: Order Comment: Speci men Type: BLOOD SPECIMEN Ordering Facility: [facility] Address: [address] [place] [address] Performed By: #### T [id number] #### [facility] CLIA [id number] [address] [place] [address] [id number] [place] [address] [place] Start: 08-27-2023 Colonoscopy [...] 3 views Julianna REYES Work Phone: Start: 09-23-2022 Ct cervical spine w/ o contrast material Joseluis Darrion DO Work Phone: Start: 03-08-2022 Ct head/brain w/o co ntrast material Joseluis Darrion DO Work Phone: Start: 01-01-2022 Computed tomography of abdomen and pelvis with contrast Start: 11-22-2021 Repair of recurrent ventral hernia YARA HENSON MD Start: 06-16-2018 History of repair of umbilical hernia TRU REYESKIN CHILDREN'S SERVICE WORKER-INVOICE CLERK Start: 08-29-2017 Adult depression scr eening assessment Ibrahima Schaefer MD Work Phone: Start: 11-12-2016 Lipid 1996 panel - S luigi or Plasma Suresh Griffiths CHILDREN'S SERVICE WORKER.INVOICE CLERK Work Phone: Appendectomy ASHLYN Segura Drain, device (physi mary alice object) AVANI CANTOR CHILDREN'S SERVICE WORKER-INVOICE CLERK Comment on above: placed and removed x 3 Plan of Treatment Date Care Activity Detail Author Start: 2029 Zoster Vaccines (1 of 2) Zoste r Vaccines (1 of 2) [facility] Start: 02-27-2025 End: 02-27-2025 [facility] Start: 02-17-2025 [facility] Start: 01-26-2025 [facility] Start: 12-29-2024 [facility] Start: 12-09-2024 Hepatic function panel [facility] Start: 12-09-2024 Triacylglycerol lipa se measurement [facility] Start: 12-07-2024 [facility] Start: 08-24-2024 [facility] Start: 02-15-2024 COVID-19 Vaccine ( season) COVID-19 Vaccine ( season) [facility] Start: 02-15-2024 [facility] Start: 07-21-2023 End: 07-21-2024 aPTT in Platelet poor plasma by Coagulation assay ACTIVATED PTT Lab Routine Preoperative examination Infected hernioplasty mesh, sequela Expected: 07/21/2023, Expires: 07/21/2024 [facility] Work Phone: Comment on above: Expected: 07/21/2023 , Expires: 07/21/2024 Start: 07-21-2023 End: 07-21-2024 CBC W Auto Differential panel - Blood CBC + DIFF Lab Routine Preoperative examination Infected hernioplasty mesh, sequela Expected: 07/21/2023, Expires: 07/21/2024 [facility] Work Phone: Comment on above: Expected: 07/21/2023 , Expires: 07/21/2024 Start: 07-21-2023 End: 07-21-2024 Comprehensive metabolic 2000 panel - Serum or Plasma COMP METABOLIC PANEL Lab Routine Preoperative examination Infected hernioplasty mesh, sequela Expected: 07/21/2023, Expires: 07/21/2024 [facility] Work Phone: Comment on above: Expected: 07/21/2023 , Expires: 07/21/2024 Start: 07-21-2023 End: 07-21-2024 PT panel - Platelet poor plasma by Coagulation assay PROTHROMBIN TIME/PT Lab Routine Preoperative examination Infected hernioplasty mesh, sequela Expected: 07/21/2023, Expires: 07/21/2024 [facility] Work Phone: Comment on above: Expected: 07/21/2023 , Expires: 07/21/2024 Start: 07-21-2023 End: 07-21-2024 TYPE AND SCREEN,30 DAY TYPE AND SCREEN,30 DAY Blood Bank Routine Preoperative examination Infected hernioplasty mesh, sequela Expected: 07/21/2023 (Approximate), Expires: 07/21/2024 [facility] Work Phone: Comment on above: Expected: 07/21/2023 (Approximate), Expires: 07/21/2024 Start: 07-03-2023 [facility] Start: 06-16-2023 Depression Assessment Depression Ass [facility] Start: 06-12-2023 Patient referral [facility] Work Phone: Start: 06-01-2023 [facility] Start: 02-14-2023 Covid-19 Vaccine ( season) Covid-19 Vaccine ( season) [facility] Start: 02-14-2023 Influenza vaccination Influenza Vacc ine (#1) [facility] Start: 02-14-2022 Influenza vaccination C [facility] Start: 01-14-2022 Influenza vaccination Flu vaccine (# 1) [facility] Start: 01-03-2022 End: 03-05-2022 Bacteria identified in Body fluid by Culture [facility] Work Phone: Comment on above: Expected: 01/03/2022 , Expires: 03/05/2022 Start: 01-01-2022 Application of abdom inal corset [facility] Work Phone: Start: 11-12-2021 Lipid panel Lipid Screening [facility] Start: 11-12-2021 LIPID SCREEN LIPID SCREEN [facility] Start: 06-25-2021 COVID-19 Vaccine (4 - Booster for Moderna series) COVID-19 Vaccine (4 - Booster for Moderna series) [facility] Start: 2019 Lipid panel Lipids [facility] Start: 08-29-2018 Adult depression screening assessment DEPRESSION SCREENING [facility] Start: 2014 Diabetes screen Diabetes screen [facility] Start: 2001 DTaP/Tdap/Td Vaccine s (1 - Tdap) DTaP/Tdap/Td Vaccines (1 - Tdap) [facility] Start: 1998 DTaP/Tdap/Td vaccine (1 - Tdap) DTaP/Tdap/Td vaccine (1 - Tdap) [facility] Start: 1998 DTaP/Tdap/Td Vaccine s (1 - Tdap) DTaP/Tdap/Td Vaccines (1 - Tdap) [facility] Start: 1998 Hepatitis B Vaccine (1 of 3 - 19+ 3-dose series) Hepatitis B Vaccine (1 of 3 - 19+ 3-dose series) [facility] Start: 1998 Hepatitis B Vaccines (1 of 3 - 19+ 3-dose series) Hepatitis B Vaccines (1 of 3 - 19+ 3-dose series) [facility] Start: 1998 Pneumococcal Vaccine : Pediatrics and At-Risk Adult Patients (1 of 2 - PCV) Pneumococcal Vaccine: Pediatrics and At-Risk Adult Patients (1 of 2 - PCV) [facility] Start: 1998 Urine microalbumin profile [facility] Start: 1997 Diabetes mellitus screening Diabetes Screening [facility] Start: 1997 HEPATITIS C SCREENING HEPATITIS C SC REENING [facility] Start: 1997 Hepatitis C screening B ON [facility] Start: 1997 HIV SCREENING HIV SCREENING [facility] Start: 1997 HIV screening HIV Screening [facility] Start: 1994 HIV screening HIV screen [facility] Start: 1991 Depression Screen Depression Screen [facility] Start: 1985 PNEUMOCOCCAL (1 - PCV) PNEUMOCOCCAL (1 - PCV) [facility] Start: 1985 Pneumococcal 0-64 ye ars Vaccine (1 - PCV) Pneumococcal 0-64 years Vaccine (1 - PCV) [facility] Start: 1985 Pneumococcal vaccination Pneum ococcal Vaccine (1 of 2 - PCV) [facility] Start: 1985 Pneumococcal Vaccine : Pediatrics (0 to 5 Years) and At-Risk Patients (6 to 64 Years) (1 - PCV) Pneumococcal Vaccine: Pediatrics (0 to 5 Years) and At-Risk Patients (6 to 64 Years) (1 - PCV) [facility] Start: 01-25-1980 MMR Vaccines (1 of 1 - Standard series) MMR Vaccines (1 of 1 - Standard series) [facility] Start: 1979 COVID-19 Vaccine (#1) COVID-19 Vacci ne (#1) [facility] Start: 1979 Hepatitis B Vaccine (1 of 3 - 3-dose series) Hepatitis B Vaccine (1 of 3 - 3-dose series) [facility] Start: 1979 Hepatitis B Vaccines (1 of 3 - 3-dose series) Hepatitis B Vaccines (1 of 3 - 3-dose series) [facility] Start: 1979 HIV screening HIV Screening [facility] Start: 1979 Lipid panel Lipid Panel [facility] Start: 1979 Screening for malign ant neoplasm of colon [facility] Start: 1979 Yearly Adult Physical Yearly Adult P [facility] End: 07-21-2024 ECG COMPLETE ECG COMPLETE ECG Routine Preoperative examination Infected hernioplasty mesh, sequela 1 Occurrences starting 07/21/2023 until 07/21/2024 [facility] Work Phone: Comment on above: 1 Occurrences starti ng 07/21/2023 until 07/21/2024 Erythrocyte mean corpuscular volume determination [facility] Hematocrit [Volume Fraction] of Blood [facility] Hemoglobin [Mass/vol ume] in Blood [facility] Leukocytes [#/volume ] in Blood [facility] Mean corpuscular hemoglobin concentration determination [facility] Mean corpuscular hemoglobin determination [facility] Measurement of renal function [facility] Neutrophil count [facility] Neutrophil percent differential count [facility] Patient Education [facility] Work Phone: Patient referral [facility] Work Phone: Platelets [#/volume] in Blood [facility] Red blood cell count [facility] Red cell distributio n width determination [facility] REFER FOR ADMIT INTERVIEW REFER FOR ADMIT INTERVIEW Procedures Routine Preoperative examination Infected hernioplasty mesh, sequela Ordered: 07/21/2023 [facility] Work Phone: Comment on above: Ordered: 07/21/2023 SPINE INTERVENTION PROCEDURE SPINE INTERVENTION PROCEDURE Procedures Routine Left lateral abdominal pain Ordered: 10/10/2023 [facility] Work Phone: Comment on above: Ordered: 10/10/2023 [facility] Immunizations Immunization Date Immunization Notes Care Provider Stephon turcios 08-23-2024 tetanus toxoid, redu yovanny diphtheria toxoid, and acellular pertussis vaccine, adsorbed; Translations: [Boostrix (Tdap)] BLANCO SHAW MD [facility] [place] 04-30-2021 SARS-CoV-2 (COVID-19 ) mRNA-1273 vaccine JORGITO CANNON DO [facility] Comment on above: Result Comment: 2021: [id number] 10-05-2020 SARS-CoV-2 (COVID-19 ) mRNA-1273 vaccine JORGITO CANNON DO [facility] 09-06-2020 SARS-CoV-2 (COVID-19 ) mRNA-1273 vaccine JORGITO CANNON DO [facility] 09-09-2013 influenza, seasonal, injectable, preservative free ASHLYN BLISS MD [facility] 09-09-2013 influenza virus vaccine, unspecified formulation [facility] Payers Date Payer Category Payer Private Health Insurance [id number] 2024 Self-pay [id number] 2024 Managed Care (Private) NGUYỄN YOST [facility] [id number] 2023 Unknown NGUYỄN GUERRERO X [id number] 2023-Present [phone] [address] [address] [place] [address] [facility] [id number] 2023 Unknown [id number] 2022 Medicaid (Managed Care) 1.2. [id number] 2022 Medicaid 2022 Medicaid MEDICAID [facility] MEDICAID [id number] 2022-Present [phone] [address] [place] [address] Medicaid [id number] 2014 Medicaid [id number] 2014 Medicaid [id number] 1979 Unknown [id number] 2.16840.1.532224.3.579.2. 668 1979 Unknown [id number] 2.16840.1.448662.3.579.2. 204 1979 Unknown [id number] 2.16.840.1.751242.3.579.2. 204 1979 Unknown [id number] 2.16.840.1.244190.3.579.2. 651 1979 Unknown [id number] 2.16.840.1.675870.3.579.2. 903 1979 Unknown [id number] 2.16.840.1.942067.3.579.2. 903 1979 Unknown [id number] 2.16.840.1.467604.3.579.2. 627 1979 Unknown [id number] 2.16.840.1.934617.3.579.2. 627 1979 Unknown [id number] 2.16.840.1.329842.3.579.2. 627 1979 Unknown [id number] 2.16840.1.847938.3.579.2. 1979 Unknown [id number] 2.16.840.1.720323.3.579.2. 1979 Unknown [id number] 2.16.840.1.412341.3.579.2. 1979 Unknown [id number] 2.16.840.1.313828.3.579.2. 1979 Unknown [id number] 2.16.840.1.107895.3.579.2. 1979 Unknown [id number] 2..840.1.027512.3.579.2. 1979 Unknown [id number] 2.840.1.798935.3.579.2. 1979 Unknown [id number] 2.840.1.680445.3.579.2. 1979 Unknown [id number] 2.840.1.069135.3.579.2. 1979 Unknown [id number] 2.840.1.953306.3.579.2. 1979 Unknown [id number] 2.840.1.682928.3.579.2. 1979 Unknown [id number] 2.840.1.152245.3.579.2 62 Unknown [id number] Unknown [id number] 2.16840.1.650048.3.579.2. 462 Unknown [id number] 2.16840.1.432023.3.579.2. 462 Unknown [id number] 2.16840.1.160316.3.579.2. 462 Unknown [id number] 2.840.1.509080.3.579.2. 462 Unknown [id number] 2.16.840.1.769532.3.579.2. 462 Unknown [id number] 2.16.840.1.735614.3.579.2. 462 Unknown [id number] 2.16.840.1.051103.3.579.2. 462 Unknown [id number] 2.16.840.1.029673.3.579.2. 462 Social History Date Type Detail Facility Start: 10-23-2016 End: 02-27-2025 Tobacco smoking status Smokes tobacco daily (finding) [facility] Assigned At [facility] Start: 10-19-2021 End: 08-27-2023 Tobacco smoking status Light tobacco smoker (finding) [facility] Start: 11-14-2021 End: 07-01-2022 Tobacco smoking status Heavy tobacco smoker (finding) [facility] Start: 01-01-2022 End: 06-01-2023 Tobacco smoking status NEIS Unknown if ever smoked [facility] Start: 09-23-2018 Cigarettes [facility] Start: 1980 Sex Assigned At Male [facility] Start: 10-23-2016 End: 08-13-2024 Cigarettes smoked current (pack per day) - Reported 2 [facility] Start: 10-23-2016 End: 08-13-2024 Tobacco use and exposure Smokeless tobacco non-user [facility] Start: 01-03-2022 End: 09-16-2023 Alcohol intake Current non-drinker of alcohol (finding) [facility] Start: 1980 Sex Assigned At Not on file [facility] Start: 12-24-2021 End: 06-29-2024 Exposure to SARS-CoV-2 (event) Not sure [facility] Start: 03-08-2022 Alcohol intake Ex-drinker (finding) [facility] [employer] Work Phone: History of tobacco use Cigarette Smoker B ON [employer] Work Phone: Start: 07-07-2023 End: 08-13-2024 Tobacco use panel [facility] National Score (1-10 0), lower number is lower risk 67 [facility] Start: 06-25-2023 Gender identity Identifies as male gender (finding) [facility] Start: 06-25-2023 Sexual orientation Heterosexual (finding) [facility] Start: 09-16-2023 Tobacco Comment Currently smokes 0.5 ppd [facility] Start: 09-16-2023 Alcohol Comment rare [facility] Start: 06-29-2024 End: 08-13-2024 Alcoholic beverage intake Lifetime non-drinker (finding) [facility] Work Phone: History of tobacco use Passive smoker [facility] Work Phone: Start: 08-10-2013 End: 08-24-2024 Sex Male (finding) [facility] Medical Equipment Procedure Code Equipment Code Equipment [...] Assessment Result Facility 05-16-2024 Functional Status Independent [facility] 05-16-2024 Functional Status Standard Safet y ID band on, Allergy Band on, Call device within reach, Bed in low position, Wheels locked, Visitor at bedside, Safety level maintained [facility] 09-11-2023 Functional Status Independent [facility] 08-27-2023 Functional Status Awake, Up ad loc [facility] 08-27-2023 Functional Status Maintained, Less than 8 hours [facility] 06-28-2023 Functional Status Room check performed [facility] 06-28-2023 Functional Status [facility] 06-08-2023 Functional Status Independent [facility] 06-08-2023 Functional Status Ambulation in [place], Ambulation in Room [facility] 05-16-2023 Functional Status Standard Safet y ID band on, Allergy Band on, Call device within reach, Bed in low position, Wheels locked, Upper/Half-Length side-rails up, personal items within reach, Visitor at bedside [facility] 02-12-2023 Functional Status ID band on, Allergy Band on, Call device within reach, Bed in low position, Wheels locked, Bedside Cart Locked, Visitor at bedside, Safety level maintained [facility] 02-12-2023 Functional Status [facility] 10-28-2022 Functional Status ID band on, Allergy Band on [facility] 10-28-2022 Functional Status ID band on, Allergy Band on, Call device within reach, Bed in low position, Wheels locked, Upper/Half-Length side-rails up, Phone within reach, personal items within reach, Bedside Cart Locked, Visitor at bedside [facility] 10-21-2022 Functional Status ID band on, Allergy Band on, Safety level maintained [facility] 09-12-2022 Functional Status Ambulating in zamorano [facility] 09-05-2022 Functional Status Sensory Deficits None [facility] 08-28-2022 Functional Status Standard Safet y ID band on, Call device within reach, Bed in low position, Wheels locked, Upper/Half-Length side-rails up, Bedside Cart Locked, Safety level maintained [facility] 08-18-2022 Functional Status Independent [facility] 08-18-2022 Functional Status Room check performed [facility] 07-22-2022 Functional Status Up ad loc [facility] 07-22-2022 Functional Status Standard Safet y ID band on, Allergy Band on, Call device within reach, Bed in low position, Wheels locked, Visitor at bedside [facility] 07-18-2022 Functional Status abdominal bind er on, ice on [facility] 07-18-2022 [facility] Functional Status Activity Pilloneelam contreras Independent [facility] 07-15-2022 Functional Status Standard Safet y ID band on, Allergy Band on, Call device within reach, Bed in low position, Wheels locked, Upper/Half-Length side-rails up, Phone within reach, personal items within reach, Safety level maintained [facility] 07-09-2022 Functional Status Sensory Deficits None [facility] 06-27-2022 Functional Status Room check performed [facility] 06-27-2022 Functional Status [facility] 06-01-2022 Functional Status Ambulating in zamorano, Ambulating in room, Awake [facility] 05-31-2022 Functional Status Standard Safet y ID band on, Allergy Band on, Call device within reach, Bed in low position, Wheels locked, Upper/Half-Length side-rails up, personal items within reach [facility] 05-27-2022 Functional Status Independent [facility] 03-15-2022 Functional Status Room check performed [facility] 03-14-2022 Functional Status [facility] 12-21-2021 Functional Status Standard Safet y ID band on, Call device within reach, Bed in low position, Wheels locked, Upper/Half-Length side-rails up, Bedside Cart Locked, Safety level maintained [facility] 12-21-2021 Functional Status [facility] 11-30-2021 Functional Status Standard Safet y ID band on, Call device within reach, Bed in low position [facility] 11-14-2021 Functional Status Sensory Deficits None [facility] 10-06-2021 Functional Status [facility] 10-06-2021 Functional Status [facility] Mental Status Date Assessment Result Facility 05-16-2024 Mental Status Orientation Oriented x 4 [facility] 05-16-2024 Mental Status [facility] 09-11-2023 Mental Status Orientation Oriented x 4 [facility] 08-27-2023 Mental Status Oriented x 4 [facility] 08-27-2023 Mental Status [facility] 06-28-2023 Mental Status Orientation Oriented x 4 [facility] 06-28-2023 Mental Status [facility] 06-08-2023 Mental Status Orientation Oriented x 4 [facility] 06-08-2023 Mental Status [facility] 05-16-2023 Mental Status Orientation Oriented x 4 [facility] 02-12-2023 Mental Status Orientation Oriented x 4 [facility] 02-12-2023 Mental Status [facility] 10-28-2022 Mental Status Orientation Oriented x 4 [facility] 10-28-2022 Mental Status Oriented x 4 [facility] 10-21-2022 Mental Status Orientation Oriented x 4 [facility] 09-12-2022 Mental Status Orientation Oriented x 4 [facility] 09-05-2022 Mental Status Orientation Oriented x 4 [facility] 08-28-2022 Mental Status Orientation Oriented x 4 [facility] 08-18-2022 Mental Status Orientation Oriented x 4 [facility] 08-18-2022 [facility] 07-22-2022 Mental Status Orientation Oriented x 4 [facility] 07-22-2022 Mental Status [facility] 07-18-2022 Mental Status Orientation Oriented x 4 [facility] 07-18-2022 Mental Status [facility] 07-15-2022 Mental Status Orientation Oriented x 4 [facility] 07-15-2022 Mental Status [facility] 06-28-2022 Mental Status Orientation Oriented x 4 [facility] 06-27-2022 Mental Status [facility] 06-01-2022 Mental Status Orientation Oriented x 4 [facility] 05-31-2022 Mental Status [facility] 05-27-2022 Mental Status Orientation Oriented x 4 [facility] 03-15-2022 Mental Status Orientation Oriented x 4 [facility] 03-14-2022 Mental Status [facility] 12-21-2021 Mental Status Oriented x [facility] 12-21-2021 Mental Status [facility] 11-30-2021 Mental Status Orientation Oriented x 4 [facility] 11-30-2021 Mental Status [facility] 10-06-2021 Mental Status [facility] 10-06-2021 [facility] Status [facility] Clinical Notes 10-06-2021 to 03-02-2025 Note Date & Type Note Facility 03-02-2025 Hospital Discharg e instructions Patient Education 03/02/2025 00:06:50 Hernia (Adult) Hernia (Adult) A hernia can [...] the wear and tear of daily living. Certain factors can make a hernia more likely. These [...] hernia isn t treated, it may become strangulated. This means the area loses blood supply and the tissue may . This requires emergency surgery. You need treatment right away. In most cases, a [...] or as directed by your healthcare provider [phone] [employer]. [address] [place] [address]. All rights reserved. This information is not intended as a substitute for professional medical care. Always follow your healthcare professional's instructions. Follow Up Care 03/01/2025 22:53:25 With:Your surgeon at next available appointment Address:Unknown When: Unknown With:VIOLA STARKEY APRN-INVOICE CLERK Address: [address], [place] [id number]- [phone] When:2-4 days [facility] 03-02-2025 Note Discharge Instructions Thank you for allowing [facility] to assist you with your healthcare needs. The following is important discharge information regarding your hospital visit. Diagnosis from Today's Visit Ventral hernia What to Do Next Instructions from Your Care Team No qualifying data available. Post Acute Orders No qualifying data available. You Need to Schedule the Following Appointments Follow Up with Your surgeon at next available appointment Follow Up with VIOLA STARKEY When:Within 2-4 days Where:[address] [facility] [place] [address]- [phone] Allergies Keflex Keppra Rash Tape, Paper Rash morphine Rash naproxen Medications Please ask your primary doctor or pharmacist before taking any other medication not listed, including over the counter drugs, herbal medications, vitamins and or supplements as they may interact with your home medications. Please take this list to [...] the wear and tear of daily living. Certain factors can make a hernia more likely. These [...] hernia isn t treated, it may become strangulated. This means the area loses blood supply and the tissue may . This requires emergency surgery. You need treatment right away. In most cases, a [...] or as directed by your healthcare provider [phone] [employer]. [address] [place] [address], [place] [address]. All rights reserved. This information is not intended as a substitute for professional medical care. Always follow your healthcare professional's instructions. Additional Information VACCINATE! IT SAVES LIVES! Members of the community who have not yet received the COVID-19 vaccine and would like to receive it can visit one of [facility] vaccine clinics. There are many vaccine clinic locations within the [facility]. For locations and available times, please visit [email or web address] [email or web address] It is important to note that some COVID mobile vaccine clinics are held outdoors and may be canceled in rainy or stormy conditions. To learn more about pediatric vaccinations (ages 5-11), we invite you to visit the [facility] webpage. https://www.[email or web address]/p [email or web address]-Hkibh-Luxxufpxqeh-Freq [email or web address]-Ftqns-[email or web address].[email or web address] To learn more about the COVID-19 vaccine, we invite you to visit the CDC website for a list of frequently asked questions. https://www.cdc.gov/coronavirus/ 2019-ncov/vaccines/faq.html [facility] Patient [facility] Access Instructions: Stay connected with your healthcare team and access your personal medical information anytime with the [facility] Patient Portal. If you would like a full copy of your medical records please contact the [facility] Medical Records Department Friday through Friday between 8a.m. and 4:30p.m. Please follow the directions below to access the portal: 1.Access the email account you provided upon registration to the hospital.2.Look for an invitation email from [facility].3.Open the email and access the invitation link: Accept Invitation to [facility].Fill in the required vegas to create your account. To access your account, visit [email or web address] or scan the Shippo code above. Click the blue button labeled Access Patient Portal and then log in with the username and password that you created in the steps above. You can then view a summary of results, a summary of your visits, and the ability to download your summaries to your computer or send the information securely to a physician. Remember that your healthcare information is confidential, so carefully consider who you will allow to register on the [employer] Patient Portal for access to your information. You can also access the [employer] Patient Portal on the Physiq. Simply click on Health Records under Health Data and then click on the [employer] logo. HOW TO SAFELY DISPOSE OF PRESCRIPTION MEDICATIONS Please use one of the following methods to safely dispose of your unused medications. 1.Use a drug disposal kit: the drug disposal pouch allows you to safely discard your old and unused drugs. Ask your nurse to give you one when you are discharged.2.Visit a local take-back location: Many local pharmacies and police departments have programs that collect old and unwanted prescription drugs. Call your local pharmacy or go to http://Ingageapp.FreeBorders/8G7Ph5u to find one close to you.3.Make use of household items: Use cat litter or old coffee grounds to dispose medications if other options are not available. Mix your drugs with these household products, seal them in an airtight container and throw it into the garbage. Call [facility]: [phone] to be sure your drugs can be [...] aware that I should contact my doctor. 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 Multiplanar reformatted images are provided for review. Automated exposure control, iterative reconstruction, and/or weight based adjustment of the mA/kV was utilized to reduce the radiation dose to as low as reasonably achievable. COMPARISON: CT abdomen and pelvis on 05/16/2024 HISTORY: ORDERING SYSTEM PROVIDED HISTORY: Reason for Exam: Hernia suspected, abdominal wall FINDINGS: Lower Chest: There is no acute abnormality at the lung bases. Organs: The liver, biliary tree, pancreas, spleen, adrenal glands, and kidneys show no sign of abnormality. GI/Bowel: There is no intestinal obstruction or inflammation. The appendix has been removed. There is no free intraperitoneal air or abnormal fluid collection in the abdomen. Pelvis: Urinary bladder is normal in size and appearance. The prostate is not enlarged. There is no pelvic mass or abnormal fluid collection. Peritoneum/Retroperitoneum: Abdominal aorta is nonaneurysmal. There is no retroperitoneal lymph node enlargement. Bones/Soft Tissues: There is a large ventral hernia. There is 5 cm the rectus abdominus muscles. The ventral hernia contains fat and measures 22 cm transverse by a 3.8 cm AP and 11.4 cm craniocaudal length, demonstrates significant increase in size since 05/16/2024 (prior measurements 11.1 x 3.1 x 8.7 cm). No bowel loops extend into the hernia. No acute skeletal abnormality is present. IMPRESSION: 1. Large fat-containing ventral hernia has increased in size since 05/16/2024. 2. No acute intra-abdominal or intrapelvic abnormality. Interpreted by: Milind Stephens MD Preliminary Report By: Milind Stephens MD Electronically signed By Milind Stephens MD Dictated Date: 03/01/2025 11:51:34 PM Prelim Date: 03/02/2025 12:00:47 AM Sign Date: 03/02/2025 12:00:47 AM Ordering Provider: [facility]09-14-2025 Discharge summary [facility] Medical Records Department [address] [place] [id number] Emergency Department Summary 02/27/25 MR#: [id number] Acct: [id number] Name: PATRICK KOROMA Rep #:[id number] : 1980 45 From: Joseluis Mario PCP: ERIC Anaya Status:REG ER Location: ED HPI History of Present Illness Chief Complaint: Abd Pain [facility] Medical History (Updated 02/27/25 @ 22:[address] Joseluis Maier, DO) Abdominal pain Seroma after procedure Influenza due to influenza virus, type A, human Contact with or suspected exposure to other viral communicable disease Sprain of left foot Left ankle sprain Strain of left knee Contusion of left knee Seizures Home Medications ?Medication ?Instructions ?Recorded ?Last Taken ?Type ondansetron 4 mg disintegrating 4 mg PO Q8H PRN PRN Na usea #10 tabs 02/27/25 Unknown Rx tablet oxycodone 5 mg tablet 5 mg PO Q6H PRN pain 3 days #12 02/27/25 Unknown Rx tabs Allergy/AdvReac Type Severity Reaction Status Date / Time adhesive tape Allergy Hives Verified 02/27/25 20:53 cephalexin monohydrate (From Allergy Anaphylaxis Verified 02/27/25 20:53 Keflex) levetiracetam (From Keppra) Allergy Hives Verified 02/27/25 20:53 morphine Allergy Shortness Verified 02/27/25 20:53 of breath naproxen (From Naprosyn) Allergy Hives Verified 02/27/25 20:53 Family History Grandmother Arthritis Mother Arthritis Seizures Father Colon cancer Diabetes Brother Heart disease Surgical History H/O hernia repair History of appendectomy Social History household members: spouse Smoking Status: Current every day smoker tobacco type: cigarettes alcohol intake: never EXAM Physical Exam Const Vital Signs: 02/27/25 20:51 Temperature 98.6 F Temperature Source Temporal Pulse Rate 100 Respiratory Rate 18 Blood Pressure 170/141 H Blood Pressure Mean 150 Pulse Ox 98 Oxygen Delivery Method Room Air [facility] MDM Narrative Medical decision making narrative: HISTORY OF PRESENT ILLNESS: Chief complaint: Abdominal pain 45-year-old male here with concern for abdominal pain. History of large hernia,appendectomy. Notes he follows a specialist at [facility]. Notes he has a surgical evaluation/ operation scheduled for March. He notes worsening pain in the abdomen. Denies vomiting. Denies fever. Last bowel movement was this morning (reported as normal). No urinary complaints. REVIEW OF SYSTEMS: Pertinent positives: Abdominal pain Pertinent negatives: As per HPI PHYSICAL EXAM: Nursing triage notes reviewed, Vital signs reviewed [...] posterior tibial) in all extremities Abdomen: Soft, diffuse TTP, slight distention but no rigidity, rebound or guarding, no obvious peritoneal signs, no palpable pulsatile abdominal masses, no auscultated abdominal bruit : No CVAT Extremities: No edema Neuro: No new focal neurological deficits, cranial nerves II through XII intact,5/5 strength in allpresent extremities. Intact sensation to light touch in all present extremities, 2+ reflexes bilateral patella tendons. Skin: No rash or lesions noted MEDICAL DECISION MAKING: Chief Complaint: please see HPI External records reviewed: Seen on 02/2025 for abdominal pain. Reviewed prior imaging studies. Reviewed imaging studies from January 07 which shows Factors affecting care: As per HPI Social determinants of health: none History obtained from others: Mary? Consults: none MDM Narrative: The patient was initially hypertensive with a blood pressure 171/141 otherwise afebrile and nontoxic-appearing. Exam with slightly distended diffusely painfulabdomen but no obvious peritoneal signs. I considered the following differential diagnosis: AAA, small bowel obstruction,abdominal perforation, appendicitis, pancreatitis, hepatobiliary pathology (acute cholecystitis), mesenteric ischemia, pathology (ie nephrolithiasis, pyelonephritis). I obtained a broad lab and imaging workup to further elucidate etiology the patient's complaint to further determine if the patient was suffering from a life-threatening etiology. Initially treat the patient with IV Dilaudid as he is allergic to morphine, IV Toradol, IV Zofran, and normal saline ALL IMAGES (IF OBTAINED) HAVE BEEN PERSONALLY REVIEWED AND INTERPRETED BY MYSELF. CBC without leukocytosis, severe anemia, no thrombocytopenia. Lactate is wnl indicating no end-organ hypoperfusion and/or hypoxia. CMP without evidence of acute kidney injury, significant electrolyte abnormality, anion gap to suggest end organ hypo-perfusion, no evidence of metabolic acidosis with a normal bicarbonate, no evidence of hepatobiliary obstructive pathology. Lipase is wnl indicating no pancreatic inflammation. CT scan of the abdomen pelvis was read and reviewed personally by myself showed no evidence of obvious obstruction or incarcerated hernia. Awaiting radiologistfinal read. Radiologist noted CT scan was negative for acute abnormality or surgical process. Repeat evaluation showed improved pain after the above treatments. Repeat abdominal exam remained the same. Patient is appropriate discharge home with close outpatient pain management follow-up and surgery follow-up for definitive repair. The patient and/or family, caregivers express understanding. The patient and/orfamily, caregivers agrees with the plan. Shared decision making: I will have a discussion with the patient and or visitors regarding risk/benefits of further testing or admission. They will be made aware of of the risk/benefits inherent in this decision they will be given the opportunity to voice understanding. Total critical care time today provided was at least 0 minutes. This excludes separately billable procedures. Critical care time (if documented) is secondary to the patient having high probability ofclinically significant/life threatening deterioration in the patient's condition which required my urgent intervention. Impression: 1. Acute on chronic abdominal pain 2. History of ventral hernia Dispo: Discharge home This note was generated with ClearServe dictation software. It may contain incorrectwords, spelling, and punctuation that were not noted in review of the chart prior to signing. Lab Data Labs: Laboratory Results - last 24 hr 02/27/25 21:25 WBC 9.9 RBC 4.29 L Hgb 13.4 Hct 39.4 L MCV 91.8 MCH 31.2 MCHC 34.0 RDW Std Deviation 43.8 RDW Coeff of Nory 13.1 Plt Count 280 MPV 9.5 Immature Gran % (Auto) 0.300 Neut % (Auto) 55.5 Lymph % (Auto) 34.6 [place] % (Auto) 6.8 Eos % (Auto) 2.2 Baso % (Auto) 0.6 Absolute Neuts (auto) 5.5 Absolute Lymphs (auto) 3.43 Nucleated RBC % 0 Sodium 140 Potassium 3.8 Chloride 107 Carbon Dioxide 22.6 Anion Gap 11 BUN 12 Creatinine 0.82 Estim Creat Clear Calc 178.28 Est GFR (MDRD) Non-Af 110 BUN/Creatinine Ratio 14.1 Glucose 108 H Lactic Acid 1.5 Calcium 9.3 Total Bilirubin < 0.15 AST 21 ALT 18 Alkaline Phosphatase 34 L Total Protein 6.3 Albumin 3.8 Globulin 2.6 Albumin/Globulin Ratio 1.5 Lipase 37 Radiography Diagnostic Testing: Clinical Impression(s) from Imaging Studies Abdomen/Pelvis CT 02/27/25 21:05 IMPRESSION: NO ACUTE FINDINGS IN THE ABDOMEN OR PELVIS. Reading Location: [facility] Discharge Plan Triage Chief Complaint: Abd Pain ED Provider: Joseluis Maier Dx/Rx/DC Orders Instructions: ED Hernia (Adult) Prescriptions: New oxycodone 5 mg tablet 5 mg PO Q6H PRN (Reason: pain) 3 Days Qty: 12 0RF ondansetron 4 mg tablet,disintegrating 4 mg PO Q8H PRN PRN (Reason: Nausea) Qty: 10 0RF Primary Care Provider: Viola Starkey NP Referrals: Your Surgeon [Other] Miri Joshi MD [Med Staff - Active Staff] - Viola Starkey NP, MEAL PACKER-C [Primary Care Provider] - Activity Restrictions/Additional Instructions: Thank you for trusting us with your care today! Your labs and images are reassuring. Your CT scan did not show evidence of incarcerated or strangulated hernia. Please take Tylenol (2 pills, 650 mg), ibuprofen (2 pills, 400 mg) every 6 hoursas needed for pain and fever control. Please take oxycodone for breakthrough pain. Please return to the emergency department if your symptoms change or worsen. Please follow with Your Surgeon and Pain management for further outpatient evaluation and management. Print Language: Somali Disposition Disposition: Home, Self Care What to do if you have Problems For any increased pain, shortness of breath, bleeding, nausea or vomiting, chestpain, or any unexpected problems, contact your Primary Care Provider. Call [facility] ([phone]) or report tothe closest Emergency Room. Call 911 if necessary. 02/27/25 [id number] Cosigner Signature (if applicable): CC: MEAL PACKER-Marielos Starkey ~ Signed [facility]09-14-2025 Radiology Diagnostic study note [facility] Imaging Services [address] [place], [place] [address] Abdomen/Pelvis W IV Cont ONLY MR#: [id number] Acct: [id number] Name: WINPATRICK LANGE Rep #: [id number] : 1980 M 45 From: Elias Collazo MD PCP: ERIC Anaya Status: REG ER Study:Abdomen/Pelvis W IV Cont ONLY Date of E xam: 02/27/25 Exam# [id number] Ordering Dr: Solis Maier DO PROCEDURE: ABDOMEN/PELVIS W IV CONT ONLY 02/27/2025 REASON FOR EXAM: MID ABDOMINAL PAIN, HISTORY OF HERNIA TECHNIQUE: Procedure Code: CTABDPELIV Modality: CT Procedure: ABDOMEN/PELVIS W IV CONT ONLY Coronal and Sagittal reconstruction series were provided. CONTRAST: Isovue 370 VOLUME: 100 mL One or more dose reduction techniques were used (e.g., Automated exposure control, adjustment of the mA and/or kV according to patient size, use of iterative reconstruction technique. RADIATION DOSE SUMMARY: CTDlvol: 13.30, 24.18 mGy DLP: 1361.31 mGycm FINDINGS: LUNG BASES: No basilar airspace consolidation or pleural effusion. LIVER: Unremarkable. GALLBLADDER: Unremarkable. No calcified stone. BILE DUCTS: No ductal dilation. PANCREAS: Unremarkable. SPLEEN: Unremarkable. ADRENAL GLANDS: Unremarkable. KIDNEYS: The kidneys enhance symmetrically. Similar-appearing hypodense left renal lesions, the largest is 0.8 cm, likely cysts. No hydronephrosis or hydroureter. STOMACH AND BOWEL: No obstruction or perforation. No wall thickening. No CT evidence of colitis or acute diverticulitis. APPENDIX: The appendix is not definitively seen. RETRO/PERITONEUM: No free fluid. No free air. LYMPH NODES: No lymphadenopathy. PELVIC ORGANS: Unremarkable as visualized. VASCULATURE: No aortic aneurysm. ABDOMINAL WALL AND SOFT TISSUES: Chronic postoperative changes in the ventral abdominal wall with stable moderate-sized midline fat-containing hernia. BONES: No fracture or suspicious osseous abnormality. CT/Abdomen/Pelvis W IV Cont ONLY IMPRESSION: NO ACUTE FINDINGS IN THE ABDOMEN OR PELVIS. Reading Location: [facility] CC: ERIC Starkey; Dr. Joseluis Maier DO ~ Chlorine Plant Operator: Signed [facility]09-14-2025 Discharge summary Author Joseluis Maier [facility] Note Date/Time February 27, 2025 10:57pm [facility] Medical Records Department [address] [place] [address] Emergency Department Summary 02/27/25 MR#: [id number] Acct: [id number] Name: PATRICK KOROMA Rep #:[id number] : 1980 45 From: Joseluis Mario PCP: FREDDY AnayaC Status:REG ER Location: ED HPI History of Present Illness Chief Complaint: Abd Pain PFSH PFSH Medical History (Updated 02/27/25 @ 22:[address] Joseluis Maier DO) Abdominal pain Seroma after procedure Influenza due to influenza virus, type A, human Contact with or suspected exposure to other viral communicable disease Sprain of left foot Left ankle sprain Strain of left knee Contusion of left knee Seizures Home Medications ?Medication ?Instructions ?Recorded ?Last Taken ?Type ondansetron 4 mg disintegrating 4 mg PO Q8H PRN PRN Na usea #10 tabs 02/27/25 Unknown Rx tablet oxycodone 5 mg tablet 5 mg PO Q6H PRN pain 3 days #12 02/27/25 Unknown Rx tabs Allergy/AdvReac Type Severity Reaction Status Date / Time adhesive tape Allergy Hives Verified 02/27/25 20:53 cephalexin monohydrate (From Allergy Anaphylaxis Verified 02/27/25 20:53 Keflex) levetiracetam (From Keppra) Allergy Hives Verified 02/27/25 20:53 morphine Allergy Shortness Verified 02/27/25 20:53 of breath naproxen (From Naprosyn) Allergy Hives Verified 02/27/25 20:53 Family History Grandmother Arthritis Mother Arthritis Seizures Father Colon cancer Diabetes Brother Heart disease Surgical History H/O hernia repair History of appendectomy Social History household members: spouse Smoking Status: Current every day smoker tobacco type: cigarettes alcohol intake: never EXAM Physical Exam Const Vital Signs: 02/27/25 20:51 Temperature 98.6 F Temperature Source Temporal Pulse Rate 100 Respiratory Rate 18 Blood Pressure 170/141 H Blood Pressure Mean 150 Pulse Ox 98 Oxygen Delivery Method Room Air [facility] Narr[place] Medical decision making narrative: HISTORY OF PRESENT ILLNESS: Chief complaint: Abdominal pain 45-year-old male here with concern for abdominal pain. History of large hernia,appendectomy. Notes he follows a specialist at [facility]. Notes he has a surgical evaluation/ operation scheduled for March. He notes worsening pain in the abdomen. Denies vomiting. Denies fever. Last bowel movement was this morning (reported as normal). No urinary complaints. REVIEW OF SYSTEMS: Pertinent positives: Abdominal pain Pertinent negatives: As per HPI PHYSICAL EXAM: Nursing triage notes reviewed, Vital signs reviewed Constitutional: please see [facility] HENT: MMM Eyes: Pupils equal round and [...] posterior tibial) in all extremities Abdomen: Soft, diffuse TTP, slight distention but no rigidity, rebound or guarding, no obvious peritoneal signs, no palpable pulsatile abdominal masses, no auscultated abdominal bruit : No CVAT Extremities: No edema Neuro: No new focal neurological deficits, cranial nerves II through XII intact,5/5 strength in all present extremities. Intact sensation to light touch in all present extremities, 2+ reflexes bilateral patella tendons. Skin: No rash or lesions noted MEDICAL DECISION MAKING: Chief Complaint: please see [facility] External records reviewed: Seen on 02/2025 for abdominal pain. Reviewed prior imaging studies. Reviewed imaging studies from January 07 which shows Factors affecting care: As per [facility] Social determinants of health: none History obtained from others: Fibruna? Consults: none [facility] Narrative: The patient was initially hypertensive with a blood pressure 171/141 otherwise afebrile and nontoxic-appearing. Exam with slightly distended diffusely painfulabdomen but no obvious peritoneal signs. I considered the following differential diagnosis: AAA, small bowel obstruction,abdominal perforation, appendicitis, pancreatitis, hepatobiliary pathology (acute cholecystitis), mesenteric ischemia, pathology (ie nephrolithiasis, pyelonephritis). I obtained a broad lab and imaging workup to further elucidate etiology the patient's complaint to further determine if the patient was suffering from a life- threatening etiology. Initially treat the patient with IV Dilaudid as he is allergic to morphine, IV Toradol, IV Zofran, and normal saline ALL IMAGES (IF OBTAINED) HAVE BEEN PERSONALLY REVIEWED AND INTERPRETED BY MYSELF. CBC without leukocytosis, severe anemia, no thrombocytopenia. Lactate is wnl indicating no end-organ hypoperfusion and/or hypoxia. CMP without evidence of acute kidney injury, significant electrolyte abnormality, anion gap to suggest end organ hypo-perfusion, no evidence of metabolic acidosis with a normal bicarbonate, no evidence of hepatobiliary obstructive pathology. Lipase is wnl indicating no pancreatic inflammation. CT scan of the abdomen pelvis was read and reviewed personally by myself showed no evidence of obvious obstruction or incarcerated hernia. Awaiting radiologistfinal read. Radiologist noted CT scan was negative for acute abnormality or surgical process. Repeat evaluation showed improved pain after the above treatments. Repeat abdominal exam remained the same. Patient is appropriate discharge home with close outpatient pain management follow-up and surgery follow-up for definitive repair. The patient and/or family, caregivers express understanding. The patient and/orfamily, caregivers agrees with the plan. Shared decision making: I will have a discussion with the patient and or visitors regarding risk/benefits of further testing or admission. They will be made aware of of the risk/benefits inherent in this decision they will be given the opportunity to voice understanding. Total critical care time today provided was at least 0 minutes. This excludes separately billable procedures. Critical care time (if documented) is secondary to the patient having high probability of clinically significant/life threatening deterioration in the patient's condition which required my urgent intervention. Impression: 1. Acute on chronic abdominal pain 2. History of ventral hernia Dispo: Discharge home This note was generated with Clear[employer] dictation software. It may contain incorrectwords, spelling, and punctuation that were not noted in review of the chart prior to signing. Lab Data Labs: Laboratory Results - last 24 hr 02/27/25 21:25 WBC 9.9 RBC 4.29 L Hgb 13.4 Hct 39.4 L MCV 91.8 MCH 31.2 MCHC 34.0 RDW Std Deviation 43.8 RDW Coeff of Nory 13.1 Plt Count 280 MPV 9.5 Immature Gran % (Auto) 0.300 Neut % (Auto) 55.5 Lymph % (Auto) 34.6 [place] % (Auto) 6.8 Eos % (Auto) 2.2 Baso % (Auto) 0.6 Absolute Neuts (auto) 5.5 Absolute Lymphs (auto) 3.43 Nucleated RBC % 0 Sodium 140 Potassium 3.8 Chloride 107 Carbon Dioxide 22.6 Anion Gap 11 BUN 12 Creatinine 0.82 Estim Creat Clear Calc 178.28 Est GFR (MDRD) Non-Af 110 BUN/Creatinine Ratio 14.1 Glucose 108 H Lactic Acid 1.5 Calcium 9.3 Total Bilirubin < 0.15 AST 21 ALT 18 Alkaline Phosphatase 34 L Total Protein 6.3 Albumin 3.8 Globulin 2.6 Albumin/Globulin Ratio 1.5 Lipase 37 Radiography Diagnostic Testing: Clinical Impression(s) from Imaging Studies Abdomen/Pelvis CT 02/27/25 21:05 IMPRESSION: NO ACUTE FINDINGS IN THE ABDOMEN OR PELVIS. Reading Location: [facility] Discharge Plan Triage Chief Complaint: Abd Pain ED Provider: Joseluis Maier Dx/Rx/DC Orders Instructions: ED Hernia (Adult) Prescriptions: New oxycodone 5 mg tablet 5 mg PO Q6H PRN (Reason: pain) 3 Days Qty: 12 0RF ondansetron 4 mg tablet,disintegrating 4 mg PO Q8H PRN PRN (Reason: Nausea) Qty: 10 0RF Primary Care Provider: Viola Starkey NP Referrals: Your Surgeon [Other] Miri Joshi MD [Med Staff - Active Staff] - Viola Starkey NP, MEAL PACKER-C [Primary Care Provider] - Activity Restrictions/Additional Instructions: Thank you for trusting us with your care today! Your labs and images are reassuring. Your CT scan did not show evidence of incarcerated or strangulated hernia. Please take Tylenol (2 pills, 650 mg), ibuprofen (2 pills, 400 mg) every 6 hoursas needed for pain and fever control. Please take oxycodone for breakthrough pain. Please return to the emergency department if your symptoms change or worsen. Please follow with Your Surgeon and Pain management for further outpatient evaluation and management. Print Language: Somali Disposition Disposition: Home, Self Care What to do if you have Problems For any increased pain, shortness of breath, bleeding, nausea or vomiting, chestpain, or any unexpected problems, contact your Primary Care Provider. Call [facility] ([phone]) or report to the closest Emergency Room. Call 911 if necessary. 02/27/25 2904 <Electronically signed by Joseluis Maier DO> Cosigner Signature (if applicable): CC: ERIC Starkey ~ Signed [facility] Work Phone: 1(161) 401-572107-16-2025 Discharge summary [facility] Medical Records Department [address] [place] [address] Emergency Department Summary 12/29/24 MR#: [id number] Acct: [id number] Name: PATRICK KOROMA Rep #:[id number] : 1980 44 From: Justin Cordero MD [...] He saw the surgeon who did his otherhernia repair surgeries in [place] he was told by him he could do it. He referred himto a surgeon in [place] at and they also told him they were not able to help him. Patient denies any fever. No dysuria. Denies any nausea, vomiting or diarrhea. No back pain. Prior similar symptoms: Yes Recent Illness/Hospitalization: No PFSH [facility] Medical History Seroma after procedure Influenza [...] bilaterally. Heart regular rhythm rate about 95 nomurmur. Chest wall ribs nontender. Abdomen soft nondistended normal bowel sounds without peritonealsigns. He has a well-healed periumbilical scar that [...] obstruction. I have referred him to the [facility] they have generalsurgeons here that her hernia refrigeration repair supervisor to see if they can offer him [...] % (Auto) 61.9 Lymph % (Auto) 30.4 [place] % (Auto) 5.1 Eos % (Auto) 1.7 [...] containing omental fat, without bowel. Reading Location: [place] [address] Discharge Plan Triage Chief Complaint: Abd Pain ED Provider: Justin Cordero Dx/Rx/DC Orders Clinical Impression: Abdominal pain, Ventral hernia Instructions: ED Hernia (Adult) Prescriptions: No Action NK Primary Care Provider: Viola Starkey NP Referrals: Viola Starkey NP, MEAL PACKER-C [Primary Care Provider] - Activity Restrictions/Additional Instructions: Call the [facility]. Get the name and office number of the general surgeons therethat are hernia refrigeration repair supervisor. Call their office to get an appointment. Motrin and Tylenol for pain. Print Language: Somali Disposition Disposition: Home, Self Care What to do if you have Problems For any increased pain, shortness of breath, bleeding, nausea or vomiting, chestpain, or any unexpected problems, contact your Primary Care Provider. Call [facility] ([phone]) or report tothe closest Emergency Room. Call 911 if necessary. 12/29/24 2250 Cosigner Signature (if applicable): CC: ERIC Starkey ~ Signed [facility]07-16-2025 Radiology Diagnostic study note [facility] Imaging Services [address], [place] [address] Abdomen/Pelvis W IV Cont ONLY MR#: [id number] Acct: [id number] Name: PATRICK KOROMA Rep #: [id number] : 1980 M 44 From: Desirae Cruz MD PCP: FREDDY AnayaC Status: REG ER Study:Abdomen/Pelvis W IV Cont ONLY Date of E xam: 12/29/24 Exam# [id number] Ordering Dr: Shay Cordero MD PROCEDURE: ABDOMEN/PELVIS [...] approximately 4.7 cm. Small left inguinal hernia offat. CT/Abdomen/Pelvis W IV Cont ONLY IMPRESSION: There is redemonstration of the large ventral hernia containing omental fat, without bowel. Reading Location: [place] [address] CC: ERIC Starkey; Dr. Justin Cordero MD ~ Chlorine Plant Operator: Signed [facility]07-16-2025 Discharge summary Author Justin Cordero [facility] Note Date/Time December 29, 2024 10:5 0pm [facility] Medical Records Department [address] [place] [address] Emergency Department Summary 12/29/24 MR#: [id number] Acct: [id number] Name: PATRICK KOROMA Rep #:[id number] : 1980 44 From: Justin Cordero MD [...] did his other hernia repair surgeries in [place] he was told by him he could do it. He referred himto a surgeon in [place] at and they also told him they were not able to help him. Patient denies any fever. No dysuria. Denies any nausea, vomiting or diarrhea. No back pain. Prior similar symptoms: Yes Recent Illness/Hospitalization: No [facility] Medical History Seroma after procedure Influenza due [...] obstruction. I have referred him to the [facility] they have general surgeons here that her hernia refrigeration repair supervisor to see if they can offer him [...] % (Auto) 61.9 Lymph % (Auto) 30.4 [place] % (Auto) 5.1 Eos % (Auto) 1.7 [...] containing omental fat, without bowel. Reading Location: [place] [address] Discharge Plan Triage Chief Complaint: Abd Pain ED Provider: Justin Cordero Dx/Rx/DC Orders Clinical Impression: Abdominal pain, Ventral hernia Instructions: ED Hernia (Adult) Prescriptions: No Action NK Primary Care Provider: Viola Starkey NP Referrals: Viola Starkey NP, MEAL PACKER-C [Primary Care Provider] - Activity Restrictions/Additional Instructions: Call the [facility]. Get the name and office number of the general surgeons there that are hernia refrigeration repair supervisor. Call their office to get an appointment. Motrin and Tylenol for pain. Print Language: Somali Disposition Disposition: Home, Self Care What to do if you have Problems For any increased pain, shortness of breath, bleeding, nausea or vomiting, chestpain, or any unexpected problems, contact your Primary Care Provider. Call [employer] [facility] ([phone]) or report to the closest Emergency Room. Call 911 if necessary. 12/29/24 8270 <Electronically signed by Justin Cordero MD> Cosigner Signature (if applicable): CC: ERIC Starkey ~ Signed [facility] Work Phone: 1(488) 149-142606-26-2025 Radiology Diagnostic study note [facility] Imaging Services [address] [place] [address] Abdomen/Pelvis W IV Cont ONLY MR#: [id number] Acct: [id number] Name: PATRICK KOROMA Rep #: [id number] : 1980 M 44 From: Abb as Rajesh JEONG PCP: ERIC Anaya Status: REG ER Study:Abdomen/Pelvis W IV Cont ONLY Date of E xam: 12/09/24 Exam# [id number] Ordering Dr: Maru Baker DO PROCEDURE: ABDOMEN/PELVIS [...] of the stomach, probably gastritis. Reading [facility] CC: ERIC Starkey; DO Josh Mendoza Chlorine Plant Operator: Signed [facility]06-24-2025 Discharge summary [facility] Medical Records Department [address] [place] [address] Emergency Department Summary 12/07/24 MR#: [id number] Acct: [id number] Name: PATRICK KOROMA Rep #:[id number] : 1980 44 From: Guevara Choi MD PCP: ERIC Anaya Status:REG ER Location: ED HPI History of Present Illness Chief Complaint: Upper Extremity Injury Informant: patient Narrative Narrative: During tear down of a car level traction at the [facility], patient states he smashed his right thumb between 2 metal poles on accident. Ghjdt-kbjp-waxosshd. [facility] Medical History Seroma after procedure Influenza due [...] abnormality of the right hand. Reading Location: [facility] Discharge Plan Triage Chief Complaint: Upper Extremity Injury ED Provider: Guevara Choi Dx/Rx/DC Orders Clinical Impression: Contusion of right thumb with damage to nail, initial encounter Instructions: ED Finger or Toe Contusion Prescriptions: No Action NK Primary Care Provider: Viola Starkey NP Referrals: Viola Starkey NP, MEAL PACKER-C [Primary Care Provider] - 10-14 Days if not better Print Language: Somali Disposition Disposition: Home, Self Care What to do if you have Problems For any increased pain, shortness of breath, bleeding, nausea or vomiting, chestpain, or any unexpected problems, contact your Primary Care Provider. Call [facility] ([phone]) or report tothe closest Emergency Room. Call 911 if necessary. 12/07/24 0013 Cosigner Signature (if applicable): CC: MEAL PACKER-C Viola Starkey ~ Signed [facility]06-23-2025 Radiology Diagnostic study note [facility] Imaging Services [address], [place] [address] Hand Min 3 Views MR#: [id number] Acct: [id number] Name: PATRICK KOROMA Rep #: [id number] : 1980 M 44 From: Viki Ba MD PCP: FREDDY AnayaC Status: PRE ER Study:Hand Min 3 Views Date of Exam: Exam# [id number] Ordering Dr: Curtis Choi MD PROCEDURE: HAND [...] ERIC Starkey; Dr. Guevara Choi MD ~ Chlorine Plant Operator: Signed [facility]04-06-2025 Discharge summary [facility] Medical Records Department [address] [place] [address] Emergency Department Summary 09/19/24 MR#: [id number] Acct: [id number] Name: PATRICK KOROMA Rep #:[id number] : 1980 44 From: Brian Maldonado MD PCP: ERIC Anaya Status:REG ER Location: ED HPI History of Present Illness Chief Complaint: Upper Extremity Injury Narrative Narrative: 44-year-old male, jzzak-nzdc-lderirpp, presents with injury to his right shoulder [...] raise his right arm. Denies other injuries. [facility] Medical History Seroma after procedure Influenza due [...] clavicle and shoulder pain worse with movement. Jhjhp-dzvw-fptgmmgc. Denies hitting of his head or loss [...] AC joint separation. Patient was given 1 [place] tablet here for analgesia and x-rays obtained [...] not improving. I feel he can take uovw-kxl-rpzurlu medications for analgesia. Return instructions to the [...] Week if not improving Viola Starkey NP, MEAL PACKER-C [Primary Care Provider] - Activity Restrictions/Additional Instructions: You may wear the sling for comfort but exercise your right shoulder at least 3 times a day to prevent frozen shoulder. Tfxa-ryq-mewavvf medications as needed for pain. Follow-up with orthopedics if not improving. Print Language: Somali Disposition Disposition: Home, Self Care What to do if you have Problems For any increased pain, shortness of breath, bleeding, nausea or vomiting, chestpain, or any unexpected problems, contact your Primary Care Provider. Call [facility] ([phone]) or report tothe closest Emergency Room. Call 911 if necessary. 09/19/242224 Cosigner Signature (if applicable): CC: ERIC Starkey ~ Signed [facility]04-06-2025 Radiology Diagnostic study note [facility] Imaging Services [address] [place], [place] [address] Shoulder min 2 Views MR#: [id number] Acct: [id number] Name: PATRICK KOROMA Rep #: [id number] : 1980 M 44 From: Zuly Tena DO PCP: ERIC Anaya Status: REG ER Study:Shoulder min 2 Views Date of Exam: 09/19/24 Exam# [id number] Ordering Dr: Brian Maldonado MD PROCEDURE: SHOULDER MIN 2 VIEWS 09/19/2024 REASON FOR EXAM: TRAUMA TECHNIQUE: 4 view(s) of the right shoulder COMPARISON: None FINDINGS: Bones: No acute fracture. Joints: Normal alignment of the acromioclavicular and glenohumeral joints. Soft tissues: Soft tissues are unremarkable. Other: RAD/Shoulder min 2 Views IMPRESSION: NO ACUTE FRACTURE OR DISLOCATION. Reading Location: [facility] CC: MEAL PACKER-C Viola Starkey; Dr. Brian Maldonado MD ~ Chlorine Plant Operator: Signed [facility]04-06-2025 Radiology Diagnostic study note [facility] Imaging Services [address] [place], [place] [id number] Clavicle MR#: [id number] Acct: [id number] Name: PATRICK KOROMA Rep #: [id number] : 1980 M 44 From: Zuly Tena DO PCP: ERIC Anaya Status: REG ER Study:Clavicle Date of Exam: 09/19/24 Exam# [id number] Ordering Dr: Brian Maldonado MD PROCEDURE: CLAVICLE 09/19/2024 REASON FOR EXAM: TRAUMA TECHNIQUE: Two views of the right clavicle were obtained COMPARISON: None FINDINGS: Bones: No acute fracture. Joints: Joint spaces are preserved. Soft tissues: No soft tissue abnormality. RAD/Clavicle IMPRESSION: NO EVIDENCE OF CLAVICLE FRACTURE Reading Location: [place] CC: MEAL PACKER-Marielos Starkey; Dr. Brian Maldonado MD ~ Chlorine Plant Operator: Signed [facility]04-06-2025 Discharge summary Author Brian Maldonado [facility] Note Date/Time September 19, 2024 10:2 5pm [facility] Medical Records Department [address] [place] [address] Emergency Department Summary 09/19/24 MR#: [id number] Acct: [id number] Name: PATRICK KOROMA Rep #:[id number] : 1980 44 From: Brian Maldonado MD PCP: ERIC Anaya Status:REG ER Location: ED HPI History of Present Illness Chief Complaint: Upper Extremity Injury Narrative Narrative: 44-year-old male, elxif-fouh-jwzymywb, presents with injury to his right shoulder [...] raise his right arm. Denies other injuries. [facility] Medical History Seroma after procedure Influenza due [...] clavicle and shoulder pain worse with movement. Tjbnl-apen-tiidnjhc. Denies hitting of his head or loss [...] AC joint separation. Patient was given 1 [place] tablet here for analgesia and x-rays obtained [...] not improving. I feel he can take mdrd-bpk-yjrmwuz medications for analgesia. Return instructions to the [...] 1 Week if not improving Viola Starkey MEAL PACKER, MEAL PACKER-C [Primary Care Provider] - Activity Restrictions/Additional Instructions: You may wear the sling for comfort but exercise your right shoulder at least 3 times a day to prevent frozen shoulder. Xukj-bcd-tuggeuq medications as needed for pain. Follow-up with orthopedics if not improving. Print Language: Somali Disposition Disposition: Home, Self Care What to do if you have Problems For any increased pain, shortness of breath, bleeding, nausea or vomiting, chestpain, or any unexpected problems, contact your Primary Care Provider. Call [facility] ([phone]) or report to the closest Emergency Room. Call 911 if necessary. 09/19/242224 <Electronically signed by Brian Maldonado MD> Cosigner Signature (if applicable): CC: ERIC Starkey ~ Signed [facility] Work Phone: 1(958) 173-583703-11-2025 Radiology Diagnostic study note [facility] Imaging Services [address] [place] [address] Shoulder min 2 Views MR#: [id number] Acct: [id number] Name: PATRICK KOROMA Rep #: [id number] : 1980 M 44 From: Shahbaz Johnson DO PCP: Care Physician,No Primary Status: PRE ER Study:Shoulder min 2 Views Date of Exam: 08/24/24 Exam# [id number] Ordering Dr: Provider ,Ed P. PROCEDURE: Right shoulder radiographs REASON FOR EXAM: PAIN, LOSS OF MOBILITY TECHNIQUE: Four views of the right shoulder COMPARISON: None. FINDINGS: See impression RAD/Shoulder min 2 Views IMPRESSION: Negative for acute fracture or malalignment. 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 Mildacromioclavicular joint osteoarthritis. Reading Location: [facility] CC: ED PHYSICIAN PROVIDER; No Primary Care Physician ~ Chlorine Plant Operator: Signed [facility]02-28-2025 History of Present illness Narrative* Stephon Benavides [...] this [facility] Work Phone: 1(283) 885-641301-14-2025 History of Present illness Narrative* Jonathan Gonzalez MD - 06/29/2024 2:45 PM EST History Of Present Illness : Patrick Cali is a 44 y.o. male who presents as a self-referral for second opinion with regard to his abdominal wall. The patient lives in [facility]. The patient has had multiple abdominal operations in the past. He had a laparoscopic appendectomy in 2000 in [place]. He thereafter had 3 operations for abdominal wall hernias by Dr. Aaron Duque at [facility]. In 2016 and 2018, he underwent [...] abdomen pelvis was in May 09 at [facility] in [place]. The patient has noted recurrent fullness in the mid abdomen, with associated sharp pain especially at night, since March 2024.. He denies other symptoms such as nausea vomiting diarrhea constipation changes bowel habits or blood in the stool. Patient is engaged to be to Afshan who accompanied him to the office. He has 4 children. 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 The patient [...] Not Present- Headaches, Numbness, Tingling, Seizures, Stroke, TELEGRAPH PLANT MAINTAINER Shunt and Weakness. Psychiatric: Not Present- Anxiety, [...] this [facility] Work Phone: 1(490) 626-171512-02-2024 Hospital Discharge instructions Patient Education 05/16/2024 22:58:38 [...] or as directed by your healthcare provider [phone] [employer]. [address] [place] [address], [place] [address]. All rights reserved. This information is not intended as a substitute for professional medical care. Always follow yourhealthcare professional's instructions. Follow Up Care 05/16/2024 21:33:35 With:AARON DUQUE MD, Surgery Address: [address] [place] [address] [phone] When:2-4 days [facility] 12-01-2024 Emergency department Discharge summary Discharge Instructions Thank you for allowing [facility] to assist you with your healthcare needs. [...] DUQUE MD, Surgery When:Within 2-4 days Where:[address] [place] [address] [phone] Allergies Keflex Keppra Rash Tape, Paper Rash [...] or as directed by your healthcare provider [phone] [employer]. [address] [place] [address]. All rights reserved. This information is not intended as a substitute for professional medical care. Always follow yourhealthcare professional's instructions. Additional Information VACCINATE! IT SAVES LIVES! Members of the community who have not yet received the COVID-19 vaccine and would like to receive it can visit one of [facility] vaccine clinics. There are many vaccine clinic locations within the [facility]. For locations and available times, please visit www.gettheshot.coronavirus.[place].gov/. It is important to note that some COVID mobile vaccine clinics are held outdoors and may be canceled in rainy or stormy conditions. To learn more about pediatric vaccinations (ages 5-11), we invite you to visit the [facility] webpage. https://www.[facility].org/pages/6087-Oamtl-Lkgcadzxlms-Zddkwktnll-Pgcfr-Sth stions.htmlTo learn more about the COVID-19 vaccine, we invite you to visit the CDC website for a list of frequently asked questions. https://www.cdc.gov/coronavirus/2019-ncov/vaccines/faq.html [facility] Patient Portal Access Instructions: Stay connected with your healthcare team and access your personal medical information anytime with the [facility]) Patient Portal. If you would like a full copy of your medical records please contact the [facility] Medical Records Department Friday through Friday between 8a.m. and 4:30p.m. Please follow the directions below to access the portal: 1.Access the email account you provided upon registration to the [facility].2.Look for an invitation email from [facility].3.Open the email and access the invitation link: Accept Invitation to [facility])4.Fill in the required vegas to create your account. Sign into [email or web address] with your username and password that you [...] you will allow to register on the [facility] ([employer]) Patient Portal for access to your information. You can also access the [facility]) Patient Portal on the [employer] randal. Simply click on Health Records under [employer] and then click on the [employer] logo. HOW TO SAFELY DISPOSE OF PRESCRIPTION [...] Call your local pharmacy or go to http://Ingageapp.FreeBorders/5F5Qa4j to find one close to you.3.Make use of household items: Use cat litter or old coffee grounds to dispose medications if other options arenot available. Mix your drugs with these household products, seal them in an airtight container andthrow it into the garbage. Call [facility]: [phone] to be sure your drugs can be [...] aware that I should contact my doctor. 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 Signature: Date/Time: Relationship to Patient: Witness Name/Signature: Date/Time: [facility] Soledadjessica [id number] Emergency department Discharge summary Discharge Instructions Thank you for allowing [facility] to assist you with your healthcare needs. [...] Surgery When:Within 2-4 days Where:[address] [facility] [place] [address] [phone] Allergies Keflex Keppra Rash Tape, Paper Rash [...] or as directed by your healthcare provider [phone] [employer]. [address] [place] [address]. All rights reserved. This information is not intended as a substitute for professional medical care. Always follow yourhealthcare professional's instructions. Additional Information VACCINATE! IT SAVES LIVES! Members of the community who have not yet received the COVID-19 vaccine and would like to receive it can visit one of [facility] vaccine clinics. There are many vaccine clinic locations within the [facility]. For locations and available times, please visit www.[email or web address].[place].gov/. It is important to note that some COVID mobile vaccine clinics are held outdoors and may be canceled in rainy or stormy conditions. To learn more about pediatric vaccinations (ages 5-11), we invite you to visit the [facility] webpage. https://www.[facility].org/pages/5939-Kpttd-Koxzjcjauyq-Eenqtcagpz-Nblox-Wda stions.htmlTo learn more about the COVID-19 vaccine, we invite you to visit the CDC website for a list of frequently asked questions. https://www.cdc.gov/coronavirus/2019-ncov/vaccines/faq.html [facility] Patient Portal Access Instructions: Stay connected with your healthcare team and access your personal medical information anytime with the [facility] Patient Portal. If you would like a full copy of your medical records please contact the [facility] Medical Records Department Friday through Friday between 8a.m. and 4:30p.m. Please follow the directions below to access the portal: 1.Access the email account you provided upon registration to the hospital.2.Look for an invitation email from [facility].3.Open the email and access the invitation link: Accept Invitation to [facility])4.Fill in the required vegas to create your account. Sign into [email or web address] Asparna with your username and password that you [...] you will allow to register on the [facility] Patient Portal for access to your information. You can also access the [facility]) Patient Portal on the Physiq. Simply click on Health Records under [facility] and then click on the [facility] logo. HOW TO SAFELY DISPOSE OF PRESCRIPTION [...] Call your local pharmacy or go to http://bit.FreeBorders/0D5Yb8d to find one close to you.3.Make use of household items: Use cat litter or old coffee grounds to dispose medications if other options arenot available. Mix your drugs with these household products, seal them in an airtight container andthrow it into the garbage. Call [facility]: [phone] to be sure your drugs can be [...] aware that I should contact my doctor. 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 Signature: Date/Time: Relationship to Patient: Witness Name/Signature: Date/Time: [facility]12-01-2024 Note ORIGINAL EXAMINATION: CT OF THE [...] Sign Date: 05/16/2024 10:27:09 PM Ordering Provider: [facility]05-07-2024 Telephone encounter Note* Telephone Encounter - Christy [...] med injection with Dr. Hannah. Christy Rodrigez MANAGER CLIENT SERVICE Nurse Senior Sql Developer [facility] Work Phone: 1(147) 891-235105-07-2024 Miscellaneous Notes* Telephone Encounter - Christy Rodrigez [...] Dr. Hannah. Christy Rodrigez RN BSN Nurse Senior Sql Developer * Telephone Encounter - Christy Rodrigez RN - 10/10/2023 10:21 AM EDT Neuro SPINE CARE COORDINATION QUICK NOTE Dr. Borrero received referral from Dr. Richardson. Ordered placed for spine med injection with Dr. Hannah. Called patient to advise. Received VM message 'calling restrictions that have prevented the completion of the call' MYC message sent. Christy Rodrigez RN BSN Nurse Senior Sql Developer documented [facility] Telephone encounter Note * Telephone Encounter - Christy Rodrigez RN - 10/10/2023 10:21 AM EDT Neuro SPINE CARE COORDINATION QUICK NOTE Dr. Borrero received referral from Dr. Richardson. Ordered placed for spine med injection with Dr. Hannah. Called patient to advise. Received VM message 'calling restrictions that have prevented the completion of the call' MYC message sent. Christy Rodrigez RN BSN Nurse Senior Sql Developer [facility]04-02-2024 History and physical note* Gilles Graham PA-C - 09/16/2023 11:40 AM EDT HISTORY AND PHYSICAL EXAMINATION SERVICE DATE: 09/15/2023 SERVICE TIME: 12:25 PM PRIMARY CARE PHYSICIAN: Leydi Martin MD Assessment Patient has the following [...] requiring medication, no history of angina, CHF, AR, cardiac surgery or stents. Denies rest pain, [...] 362 QTC Calculation (Bazett) 457 Calculated P [place] 30 Calculated R [place] 19 Calculated T [place] 18 Impression NORMAL SINUS RHYTHM NORMAL ECG No results found for this or any previous visit (from the past 10870 hour(s)). Instructions Given to Patient: Instructions located in the after visit summary. Patient given verbal and written preop instructions and voices comprehension and compliance. SIGNATURE: Gilles Graham PA-C PATIENT NAME: Patrick Koroma DATE: September 15, 2023 TIME: 1:59 PM PAGER/CONTACT #: documented in this [facility]Av[facility] Instructions* Patient Instructions* Gilles Graham PA-C - 09/15/2023 1:58 PM EDT PATIENT PREOPERATIVE INSTRUCTIONS Trinidad Richardson* has scheduled you for your procedure at this surgery center: [facility] [place] Scheduling Office: [phone] --[address] [place] [address]. Please read below carefully for your personalized [...] Procedures: - YOU MUST HAVE A RESPONSIBLE DIFFERENTIAL REPAIRER TAKE YOU HOME. A FINANCIAL DEALERS OR MIDDLE SCHOOL SPANISH TEACHER CANNOT BE MADE A RESPONSIBLE DIFFERENTIAL REPAIRER. - We recommend that a responsible person [...] call the Friday before. Your surgeon s reception interviewer will tell you what time to call the office. - If you have not reached the departmental reception interviewer by 5 P.M., call [phone] after 5 P.M. the day before your surgery. Please be aware that emergency situations arise, which may delay or change your surgical time. If this happens, we will notify you as soon as possible and regret any inconvenience. If you already have an Advance Directive, please fax a copy to [phone] or email to for it to be added to your chart. If you do not have an Advance Directive, you can find the appropriate form and more information at [email or web address]. We recommend that youcomplete the Advance Directive form found on the website and bring it with you the day of your surgery. It can be witnessed and scanned into your chart that day. Gilles Graham PA-C documented in [facility] Hospital Discharge instructions Patient Education 09/11/2023 [...] foods again, start with small amounts of ojah-xg-hanfwp, low- fat foods. These include apple sauce, [...] increase stomach acid. Don't use aspirin or hehg-tls-pyqnnuk pain and fever medicines, if possible. This includes nonsteroidal anti-inflammatory drugs (NSAIDs). Lose excess weight. Finish eating at least 2 hours before you go to bed or lie down. Raise the head of your bed. 4080-7815 [employer]. [address] [place] [address], [place] [address]. All rights reserved. This information is not intended as a substitute for professional medical care. Always follow yourhealthcare professional's instructions. Follow Up Care 09/11/2023 18:01:14 With:VIOLA STARKEY Address: [address] [place] [phone] When:2-4 days [facility] 03-28-2024 Note Discharge Instructions Thank you for allowing [facility] to assist you with your healthcare needs. The following is importantdischarge information regarding your hospital visit. Diagnosis from Today's Visit Abdominal pain Abdominal pain What to Do Next Instructions from Your Care Team No qualifying data available. Post Acute Orders No qualifying data available. You Need to Schedule the Following Appointments Follow Up with VIOLA STARKEY When Within 2-4 days Where: [address] [place] [phone] Allergies Keflex Keppra (Rash) Tape, Paper (Rash) [...] foods again, start with small amounts of vqok-ni-zkyohh, low- fat foods. These include apple sauce, [...] increase stomach acid. Don't use aspirin or httv-vzi-xgegvyy pain and fever medicines, if possible. This includes nonsteroidal anti-inflammatory drugs (NSAIDs). Lose excess weight. Finish eating at least 2 hours before you go to bed or lie down. Raise the head of your bed. 6214-5723 [employer]. [address] [place] [address]. All rights reserved. This information is not intended as a substitute for professional medical care. Always follow yourhealthcare professional's instructions. Additional Information VACCINATE! IT SAVES LIVES! Members of the community who have not yet received the COVID-19 vaccine and would like to receive it can visit one of [facility] vaccine clinics. There are many vaccine clinic locations within the [facility]. For locations and available times, please visit www.gettheshot.coronavirus.[place].gov/. It is important to note that some COVID mobile vaccine clinics are held outdoors and may be canceled in rainy or stormy conditions. To learn more about pediatric vaccinations (ages 5-11), we invite you to visit the [facility] webpage. https://www.[facility].org/pages/9892-Vhuoz-Smmscdsicwh-Hrniksphlp-Cjudb-Nks stions.htmlTo learn more about the COVID-19 vaccine, we invite you to visit the CDC website for a list of frequently asked questions. https://www.cdc.gov/coronavirus/2019-ncov/vaccines/faq.html [facility] Patient Portal Access Instructions: Stay connected with your healthcare team and access your personal medical information anytime with the [facility] Patient Portal. If you would like a full copy of your medical records please contact the [facility] Medical Records Department Friday through Friday between 8a.m. and 4:30p.m. Please follow the directions below to access the portal: 1.Access the email account you provided upon registration to the hospital.2.Look for an invitation email from [facility].3.Open the email and access the invitation link: Accept Invitation to [facility])4.Fill in the required vegas to create your account. Sign into www.[email or web address] Asparna with your username and password that you [...] you will allow to register on the [facility]) Patient Portal for access to your information. You can also access the [facility] ([employer]) Patient Portal on the Physiq. Simply click on Health Records under [facility] and then click on the [facility] logo. HOW TO SAFELY DISPOSE OF PRESCRIPTION [...] Call your local pharmacy or go to http://Ingageapp.FreeBorders/3Q3Hr1y to find one close to you.3.Make use of household items: Use cat litter or old coffee grounds to dispose medications if other options arenot available. Mix your drugs with these household products, seal them in an airtight container andthrow it into the garbage. Call [facility]: [phone] to be sure your drugs can be [...] aware that I should contact my doctor. 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 Signature: Date/Time: Relationship to Patient: Witness Name/Signature: Date/Time: [facility]03-13-2024 Evaluation + Plan noteExtracted from: Title:Clinical Document Author:REYES MOORE ate:08/27/23 [place] ADMISSION HISTORY AN D PHYSICIAL CHIEF COMPLAINT: Colorectal cancer screening HISTORY OF PRESENT ILLNESS: Colorectal cancer screening, high risk, family history of colon cancer REVIEW OF SYSTEMS: Constitutional: denies weight loss Cardiovascular:denies chest pain, palpitations Respiratory:denies shortness of breath Gastrointestinal:no abd pain Musculoskeletal: no arthralgias Skin: no rashes ACTIVE PROBLEMS: (13) Acid reflux (042924978) 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 ([id number]) Electric shock (5103343770) Fall (2287883) Family history of colon cancer (445381258) Full dentures (638717157) Pain in the abdomen (80055510) Postprocedural hematoma of skin and subcutaneous tissue following other procedure (206551468) Screening for colon cancer (441007902) Seizure (969204203) TIA (207675219) Tobacco use (9023492880) Umbilical hernia (7041769979) MEDICATIONS: Active Inpt Meds: None Active PRN [...] IgG 08/07/23 * Complete Metabolic Panel 08/07/23 [facility] 03-13-2024 Hospital Discharge instructions Patient Education [...] before eating solid foods. General instructions Take lwnt-hhq-easqdjm and prescription medicines only as told by [...] 09/22/2016 Document Revised: 08/31/2018 Document Reviewed: 09/22/2016 [employer] Patient Education 2020 The [employer] website. 08/27/2023 10:26:35 Colonoscopy, Adult, Care After Colonoscopy, [...] a slower pace than normal. ?Eat soft, iajd-zj-uissby foods. Take swmc-urr-ubhgzko or prescription medicines only as told by [...] 01/14/2005 Document Revised: 03/25/2018 Document Reviewed: 08/13/2016 [employer]fair Patient Education 2020 The [employer] website. Follow Up Care 08/22/2023 07:36:51 With:REYES MOORE DO, Clinical Gastroenterology Address: [address] [place] [address] [place] [address] [phone] When:Within 1 Year(s) Comments:Repeat colonoscopy in 1 year. Will need extra bowel prep. With:VIOLA STARKEY Address: [address] [place] [phone] When: [facility] 03-13-2024 Note Discharge Instructions Thank you for allowing [facility] to assist you with your healthcare needs. [...] year. Will need extra bowel prep. Where: [address] [place] [address] [place] [address] [phone] Follow Up with VIOLA STARKEY When Where: [address] [place] [phone] The Following Activity and Diet Have Been [...] before eating solid foods. General instructions Take poex-pvx-kojsqqg and prescription medicines only as told by [...] 09/22/2016 Document Revised: 08/31/2018 Document Reviewed: 09/22/2016 [employer] Patient Education 2020 The [employer] website. Colonoscopy, Adult, Care After This sheet gives [...] slower pace than normal. ? Eat soft, thcp-ak-svybhz foods. Take sapq-set-ynwpxyj or prescription medicines only as told by [...] 01/14/2005 Document Revised: 03/25/2018 Document Reviewed: 08/13/2016 [employer] Patient Education 2020 The [employer] website. Additional Information VACCINATE! IT SAVES LIVES! Members of the community who have not yet received the COVID-19 vaccine and would like to receive it can visit one of [facility] vaccine clinics. There are many vaccine clinic locations within the [facility]. For locations and available times, please visit https://gettheshot.coronavirus.[place].gov/. It is important to note that some COVID mobile vaccine clinics are held outdoors and may be canceled in rainy or stormy conditions. To learn more about pediatric vaccinations (ages 5-11), we invite you to visit the [facility] webpage. https://www.[facility].org/pages/3286-Pyqxo-Gpacqrchhgw-Egkoxyzmvd-Wjenp-Qcx stions.htmlTo learn more about the COVID-19 vaccine, we invite you to visit the CDC website for a list of frequently asked questions.https://www.cdc.gov/coronavirus/2019-ncov/vaccines/faq.html [facility] Patient Portal Access Instructions: Stay connected with your healthcare team and access your personal medical information anytime with the [facility] Patient Portal. Please follow the directions below to create your [facility] account: 1.Access the email account you provided upon registration to the hospital/physician office.2.Look for an invitation email from [facility].3.Open the email and access the invitation link: [facility].4.Fill in the required vegas to create your account. To access your account, visit [email or web address]. Click the blue button labeled Access Patient [...] who you will allowto register on the [facility] Patient Portal for access to your information. You can also access the [facility] Patient Portal on the [facility] Bloomerangwhere randal. Simply click on Patient Portal and then log into your account. If you would like to receive a full copy of your medical records, please contact the [facility] Medical Records Department by calling [phone], Friday through Friday between 8 a.m. and [...] Call your local pharmacy or go to http://bit.ly/9V4Ej5r to find one close to you.3.Make use of household items: Use cat litter or old coffee grounds to dispose medications if other options arenot available. Mix your drugs with these household products, seal them in an airtight container andthrow it into the garbage. Call [facility]: [phone] to be sure your drugs can be [...] aware that I should contact my doctor. 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 Signature: Date/Time: Relationship to Patient: Witness Name/Signature: Date/Time: [facility] Anesthesiology Consult note Patient: PATRICK KOROMA Age: [...] by DARIEL HITCHCOCK on 08/27/2023 10:18 AM [facility]03-13-2024 Anesthesiology Consult note Patient: PATRICK KOROMA Age: 43 years Sex: Male : 1980 Associated Diagnoses: None Author: DARIEL HITCHCOCKACQUISITIONS EDITOR Preoperative Information Time of last solid food [...] Pain in the abdomen / SNOMED CT 87599983 / Confirmed Acid reflux / SNOMED CT 920717555 / Confirmed 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 / SNOMED CT 49FY3XK0-[id number]-K8FA-7829SX7W1061 / Confirmed Fall / SNOMED CT 8112512 / Confirmed Family history of colon cancer / SNOMED CT 984031653 / Confirmed Electric shock / SNOMED CT 6539209843 / Confirmed Full dentures / SNOMED CT 445861072 / Confirmed Screening for colon cancer / SNOMED CT 990966003 / Confirmed Postprocedural hematoma of skin and subcutaneous tissue following other procedure / SNOMED CT 977893010 / Confirmed Seizure / SNOMED CT 183232242 / Confirmed TIA / SNOMED CT 092869265 / Confirmed Umbilical hernia / SNOMED CT 7232660551 / Confirmed, Active Problems (13) Acid reflux 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 Electric shock Fall Family history of colon cancer Full dentures Pain in the abdomen Postprocedural hematoma of skin and subcutaneous tissue following other procedure Screening for colon cancer Seizure TIA Tobacco use Umbilical hernia Histories Past Medical History: Active TIA (372665788) Acid reflux (650286734) Seizure (826372758) Family History: Suicide Brother Congenital heart disease Brother Alcohol abuse Father () Stroke Mother Father () Diabetes Father () Colon cancer Father () Procedure history: Laparoscopic repair of recurrent umbilical hernia using synthetic mesh (0195800838) on 07/18/2022 at 42 Years. Comments: 07/23/2022 11:02 LAN - Leslie Boucher LPN OPEN REPAIR OF RECURRENT PERIUMBILICAL HERNIA WITH ANTERIOR COMPONENT SEPARATION WITH ONLAY MESH REPAIR Repair of recurrent ventral hernia (260071055) on 11/22/2021 at 41 Years. History of repair of umbilical hernia (2766075406) in 2019 at 39 Years. Appendectomy (650526812). Drain (35738101). 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 Tobacco 4Risk Assessment: High Risk 08/27/2023 Tobacco [...] Signs(last 24 hrs) Last Charted Heart Rate Hbmkrkgjz51 bpm (AUG 26 09:40) KGK520 mmHg (AUG 26 09:46) DBPH 93mmHg (AUG 26 09:46) BMI42.04 (AUG 26 09:40) Measurements from flowsheet : Measurements 08/27/2023 9:40 EDT Height 184.5 cm Admission Weight 143.1 kg Weight Method Stated [place] Body Weight 79.07 kg BSA Admission 2.6 [...] Surgeon SN - CAt - Role Performed ACQUISITIONS EDITOR SN - CAt - Role Performed Poultry Inseminator 1 SN - CAt - Role Performed [...] Quadrants Present Skin Temperature Warm Skin Description [place], Dry Skin Integrity Intact Skin Moisture General [...] Allergies Yes Anesthesia Extension Set Applied Yes Counter Stitcher On Yes Colon Prep Results Good Consent [...] Person #1 We May Share RAINE Meyer [phone] Designated Person #1 Relationship Significant other Designated Person #2 We May Share RAINE Almeida [phone] Designated Person #2 Relationship Mother Privacy Restrictions Requested None Height 184.5 cm Admission Weight 143.1 kg Weight Method Stated [place] Body Weight 79.07 kg BSA Admission 2.6 [...] Method Explanation, Printed materials Preferred Spoken Language Somali Preferred Written Language Somali Information Given by Patient Patient's Current Physicians [...] Safety In Error (In Error) 08/27/2023 7:00 [facility] History and Physical . Assessment and Plan [place] Society of Anesthesiologists (ASA) physical status classification: Class III. Anesthetic Preoperative Plan Anesthetic technique: MAC. Informed consent: signed by patient. Digitally Signed by DARIEL HITCHCOCK on 08/27/2023 10:09 AM [facility]03-13-2024 Note [place] ADMISSION HISTORY AND PHYSICIAL CHIEF COMPLAINT: Colorectal cancer screening HISTORY OF PRESENT ILLNESS: Colorectal cancer screening, high risk, family history of colon cancer REVIEW OF SYSTEMS: Constitutional: denies weight loss Cardiovascular:denies chest pain, palpitations Respiratory:denies shortness of breath Gastrointestinal:no abd pain Musculoskeletal: no arthralgias Skin: no rashes ACTIVE PROBLEMS: (13) Acid reflux (125251962) 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 (12XI1DR2-JA64-10IH-R8VS-8880DM6P2771) Electric shock (6296995602) Fall (3438160) Family history of colon cancer (531746339) Full dentures (501926758) Pain in the abdomen (23490650) Postprocedural hematoma of skin and subcutaneous tissue following other procedure (208073770) Screening for colon cancer (221585509) Seizure (512847894) TIA (557156973) Tobacco use (8584951846) Umbilical hernia (5456550113) MEDICATIONS: Active Inpt Meds: None Active PRN [...] REYES MOORE DO on 08/27/2023 07:01 AM [facility]02-22-2024 Evaluation + Plan note Future Scheduled Tests Laboratory* Thyroid Stimulating Hormone 08/07/23 * Complete Blood Count 08/07/23 * Lipid Profile 08/07/23 * Hepatitis C Antibody IgG 08/07/23 * Complete Metabolic Panel 08/07/23 [facility] 02-21-2024 NoteHNO ID: [id number] Author: VICKI MERAZ APRN.ALMA NOEL Service: ? 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 He was referred by Suresh Griffiths CNP (General Surgery) [address] [place] [address]. This consultation was shared with the referral source via the [facility] electronic medical record. The patient understanding [...] ago. Previous pain treatments: medications, surgery 07/07/23 Trinidad Richardson MD (General Surgery) Patrick Koroma is [...] No suspicious activity was identified. 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 Subdural hematoma (HCC) 2003 Hit with a door PAST SURGICAL HISTORY Procedure Laterality Date APPENDECTOMY 2000 PAST SURGICAL HISTORY OF N/A 09/2018 Hernia PAST SURGICAL HISTORY OF N/A 11/22/2021 Hernia Anesthesia: yes Schizophrenia: denied CHF: denied Uncontrolled HT (more content not included)...[facility] 08-06-2023 History of Present illness Narrative* Vicki Meraz APRN.ALMA NOEL - 08/06/2023 9:30 AM EST In-Person Visit Present: patient [facility] August 06, 2023 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 He was referred by Suresh Griffiths CNP (General Surgery) [address] [place] [address]. This consultation was shared with the referral source via the [facility] electronic medical record. The patient understanding [...] ago. Previous pain treatments: medications, surgery 07/07/23 Trinidad Richardson MD (General Surgery) Patrick Koroma is [...] filled. No suspiciousactivity was identified. 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 He dropped out in the 12th grade due to heart attack. Got his GED. 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 [...] which included preparing to see the patient, psap-qf-qauh patient care, completing clinical documentation, obtaining and/or reviewing separately obtained history, performing a medically appropriate examination, counseling and educating the pat ient/family/caregiver, and ordering medications, tests, or procedures. Vicki Meraz APRN.INVOICE CLERK, DNP documented [facility] NoteHNO ID: [id number] Author: TRINIDAD RICHARDSON MD Service: ? Author Type: Physician Type: Progress Notes Filed: 07/07/2023 09:35 Note Text: Consultation requested by Dr. Leydi Martin for an opinion regarding possible mesh [...] our notes. Patient consented for study? [facility] applicable[facility] NoteHNO ID: [id number] Author: VIVIANA TERESA MD Service: ? Author Type: Fellow Type: Progress Notes Filed: 07/07/2023 09:35 Note Text: [facility] - HISTORY AND PHYSICAL Chief Complaint: pain to the left of the hernia repair HPI: Patrick Koroma is a 43 year old male with PMH post traumatic seizure disorder, s/p appendectomy and multiple hernia repair who presents with pain lateral to the hernia repair site On 11/22/21 he had a robotic assisted repair of recurrent ventral hernia at [facility] with Dr Aaron Duque with removal of [...] Mostly neuropathic pain Viviana Teresa, [facility]01-18-2024 Note. MICRO - Microbiology PROCEDURE: [...] Locations *1: This test was performed at: [address], [address] [place] [address] ([facility]07-03-2023 Note. MICRO - Microbiology PROCEDURE: Blood [...] Locations *1: This test was performed at: [address], [address] [place] [address] ([place])07-01-2023 Note. MICRO - Microbiology PROCEDURE: Urine Culture [...] Locations *1: This test was performed at: [facility], [facility] [address] [place] [address], [address]- , [facility] ([place])06-28-2023 Hospital Discharge instructions Patient Education 06/28/2023 16:03:23 [...] that gets worse Trouble urinating Constipation Vomiting [phone] [employer]. [address] [place] [address]. All rights reserved. This information is not intended as a substitute for professional medical care. Always follow yourhealthcare professional's instructions. Follow Up Care 06/28/2023 13:49:11 With:AARON DUQUE MD, Surgery Address: [address] [place] [address] [phone] When:2-4 days With:[facility] Address: [address] [place] [address]- [phone] When:2-4 days [facility] Note Discharge Instructions Thank you for allowing [facility] to assist you with your healthcare needs. [...] Surgery When Within 2-4 days Where: [address] [place] [address] [phone] Follow Up with [facility] When Within 2-4 days Where: [address] [place] [phone]- [phone] Allergies Keflex Keppra (Rash) Tape, Paper (Rash) [...] that gets worse Trouble urinating Constipation Vomiting 3669-3290 [employer]. [address] [place] [address]. All rights reserved. This information is not intended as a substitute for professional medical care. Always follow yourhealthcare professional's instructions. Additional Information VACCINATE! IT SAVES LIVES! Members of the community who have not yet received the COVID-19 vaccine and would like to receive it can visit one of [facility] vaccine clinics. There are many vaccine clinic locations within the [facility]. For locations and available times, please visit www.[email or web address]/. It is important to note that some COVID mobile vaccine clinics are held outdoors and may be canceled in rainy or stormy conditions. To learn more about pediatric vaccinations (ages 5-11), we invite you to visit the [facility] webpage. https://www.[facility].org/pages/8611-Bbuxd-Ukbzlfymrlx-Dktwnxfunm-Mlxwl-Hae stions.htmlTo learn more about the COVID-19 vaccine, we invite you to visit the CDC website for a list of frequently asked questions. https://www.cdc.gov/coronavirus/2019-ncov/vaccines/faq.html [facility] Patient Portal Access Instructions: Stay connected with your healthcare team and access your personal medical information anytime with the [facility] [employer] Patient Portal. If you would like a full copy of your medical records please contact the [facility] Medical Records Department Friday through Friday between 8a.m. and 4:30p.m. Please follow the directions below to access the portal: 1.Access the email account you provided upon registration to the [facility].2.Look for an invitation email from [facility].3.Open the email and access the invitation link: Accept Invitation to [facility])4.Fill in the required vegas to create your account. Sign into [email or web address] with your username and password that you [...] you will allow to register on the [facility] Patient Portal for access to your information. You can also access the [facility] Patient Portal on the [employer] randal. Simply click on Health Records under [employer] and then click on the [employer] logo. HOW TO SAFELY DISPOSE OF PRESCRIPTION [...] Call your local pharmacy or go to http://bit.ly/3D8Bt4d to find one close to you.3.Make use of household items: Use cat litter or old coffee grounds to dispose medications if other options arenot available. Mix your drugs with these household products, seal them in an airtight container andthrow it into the garbage. Call [facility]: [phone] to be sure your drugs can be [...] aware that I should contact my doctor. 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 Signature: Date/Time: Relationship to Patient: Witness Name/Signature: Date/Time: [facility]01-13-2024 Note ORIGINAL EXAMINATION: CT OF THE [...] resident's findings and interpretation. Interpreted by: Wang Franicsco Preliminary Report By: Isidro Duque Electronically signed By Wang Francisco Dictated Date: 06/28/2023 3:48:17 PM Prelim Date: 06/28/2023 3:57:27 PM Sign Date: 06/28/2023 4:25:43 PM [facility] Evaluation + Plan note Diagnostic Tests Pending * Urine Culture 06/28/23 [facility] 12-24-2023 Hospital Discharge instructions Patient Education [...] foods again, start with small amounts of abhu-ju-vvczry, low- fat foods. These include apple sauce, [...] increase stomach acid. Don't use aspirin or cjjh-yqi-ctvdhbm pain and fever medicines, if possible. This includes nonsteroidal anti-inflammatory drugs (NSAIDs). Lose excess weight. Finish eating at least 2 hours before you go to bed or lie down. Raise the head of your bed. 5309-3210 [employer]. [address] [place] [address]. All rights reserved. This information is not intended as a substitute for professional medical care. Always follow yourhealthcare professional's instructions. Follow Up Care 06/08/2023 17:37:31 With:Follow up with primary care provider Address:Unknown When:2-4 days [facility] 12-24-2023 Note Discharge Instructions Thank you for allowing [facility] to assist you with your healthcare needs. [...] it can visit one of [facility] vaccine clinics. There are many vaccine clinic locations within the [facility]. For locations and available times, please visit www.[email or web address]/. It is important to note that some COVID mobile vaccine clinics are held outdoors and may be canceled in rainy or stormy conditions. To learn more about pediatric vaccinations (ages 5-11), we invite you to visit the [facility] webpage. https://www.[facility].org/pages/1836-Bxhdr-Hrqpucnzstm-Qbkexanzcp-Qhsdn-Lzb stions.htmlTo learn more about the COVID-19 vaccine, we invite you to visit the CDC website for a list of frequently asked questions. https://www.cdc.gov/coronavirus/2019-ncov/vaccines/faq.html [facility] Patient Portal Access Instructions: Stay connected with your healthcare team and access your personal medical information anytime with the [facility] Patient Portal. If you would like a full copy of your medical records please contact the [facility] Medical Records Department Friday through Friday between 8a.m. and 4:30p.m. Please follow the directions below to access the portal: 1.Access the email account you provided upon registration to the hospital.2.Look for an invitation email from [facility].3.Open the email and access the invitation link: Accept Invitation to [facility])4.Fill in the required vegas to create your account. Sign into [email or web address] with your username and password that you [...] you will allow to register on the [employer] Patient Portal for access to your information. You can also access the [employer] [facility] Patient Portal on the [employer]. Simply click on Health Records under [facility] and then click on the [employer] logo. HOW TO SAFELY DISPOSE OF PRESCRIPTION [...] Call your local pharmacy or go to http://Ingageapp.FreeBorders/1O7De1s to find one close to you.3.Make use of household items: Use cat litter or old coffee grounds to dispose medications if other options arenot available. Mix your drugs with these household products, seal them in an airtight container andthrow it into the garbage. Call [facility]: [phone] to be sure your drugs can be [...] aware that I should contact my doctor. 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 Signature: Date/Time: Relationship to Patient: Witness Name/Signature: Date/Time: [facility]12-02-2023 Hospital Discharge instructions Patient Education 05/16/2023 23:04:20 AA Blank DI (CUSTOM) Result type:CT Abd/Pelvis w/ IV Contrast Only Result date:May 16, 2023 21:13 EST Result status:Auth (Verified) Result title:CT ABD/PELVIS W/ IV CONTRAST ONLY Performed by:CHLOE LUKE MD on May 16, 2023 21:06 EST Cosigned by:LAURA MABRY DO Verified by:CHLOE LUKE MD on May 16, 2023 21:13 EST Encounter info:[id number], [facility], [facility], 05/16/2023 - Contributor system:Deanslist * Final Report * [id number] ORIGINAL EXAMINATION: CT OF THE ABDOMEN AND [...] the resident's findings and interpretation. Interpreted by: Chloe Luke Preliminary Report By: Laura Mabry Electronically signed By Chloe Luke Dictated Date: 05/16/2023 9:41:49 PM Prelim Date: 05/16/2023 10:07:10 PM Sign Date: 05/16/2023 10:45:51 PM Ordering Provider: TOI MARMOLEJO IMAGE This document has an image Document Released: 06/02/2006 Document Revised: 05/19/2013 Document Reviewed: 06/03/2014 ExitCare Patient Information 2015 [employer]. This information is not intended to replace [...] color of the hand or foot [employer]. [address] [place] [address]. All rights reserved. This information is not [...] Fainting or loss of consciousness Seizure [employer]. [address] [place] [address]. All rights reserved. This information is not [...] foods again, start with small amounts of pkvg-un-rpvxlz, low- fat foods. These include apple sauce, [...] increase stomach acid. Don't use aspirin or ptxg-ftm-etcavny pain and fever medicines, if possible. This includes nonsteroidal anti-inflammatory drugs (NSAIDs). Lose excess weight. Finish eating at least 2 hours before you go to bed or lie down. Raise the head of your bed. 6600-0854 [employer]. [address] [place] [address]. All rights reserved. This information is not intended as a substitute for professional medical care. Always follow yourhealthcare professional's instructions. Follow Up Care 05/16/2023 20:02:25 With:Go to emergency room if symptoms worsen Address:Unknown When:2-4 days With:Follow up with primary care provider Address:Unknown When:2-4 days [facility] 12-01-2023 Note ORIGINAL EXAMINATION: CT OF [...] the resident's findings and interpretation. Interpreted by: Chloe Luke Preliminary Report By: Laura Mabry Electronically signed By Chloe Luke Dictated Date: 05/16/2023 9:41:49 PM Prelim Date: 05/16/2023 10:07:10 PM Sign Date: 05/16/2023 10:45:51 PM Ordering Provider: [facility]08-30-2023 Hospital Discharge instructions Patient Education 02/12/2023 20:11:30 [...] chest, arm, back, neck or jaw pain 6990-1447 [employer]. [address] [place] [address], [place] [address]. All rights reserved. This information is not intended as a substitute for professional medical care. Always follow yourhealthcare professional's instructions. Follow Up Care 02/12/2023 17:22:30 With:AARON DUQUE Address: [address] [facility] [place] [address] [phone] Business (1) When:2-4 days With:NONE PHYSICIAN Address:Unknown When:2-4 days [facility] 08-30-2023 Emergency department Discharge summary Discharge Instructions Thank you for allowing [facility] to assist you with your healthcare needs. The following is importantdischarge information regarding your hospital visit. Diagnosis from Today's Visit Abdominal pain What to Do Next Instructions from Your Care Team No qualifying data available. Post Acute Orders No qualifying data available. You Need to Schedule the Following Appointments Follow Up with AARON DUQUE When Within 2-4 days Where: [address] [facility] [place] [address]- [phone] [facility] (1) Follow Up with NONE PHYSICIAN When [...] chest, arm, back, neck or jaw pain 5111-5446 [employer]. [address] [place] [address]. All rights reserved. This information is not intended as a substitute for professional medical care. Always follow yourhealthcare professional's instructions. Additional Information VACCINATE! IT SAVES LIVES! Members of the community who have not yet received the COVID-19 vaccine and would like to receive it can visit one of [facility] vaccine clinics. There are many vaccine clinic locations within the [facility]. For locations and available times, please visit www.[email or web address].[email or web address]/. It is important to note that some COVID mobile vaccine clinics are held outdoors and may be canceled in rainy or stormy conditions. To learn more about pediatric vaccinations (ages 5-11), we invite you to visit the [facility] webpage. https://www.[facility].org/pages/0248-Ygozp-Pdgmotvkafi-Rariolkqrg-Adlnu-Rnh stions.htmlTo learn more about the COVID-19 vaccine, we invite you to visit the CDC website for a list of frequently asked questions. https://www.cdc.gov/coronavirus/2019-ncov/vaccines/faq.html [facility] Patient Portal Access Instructions: Stay connected with your healthcare team and access your personal medical information anytime with the [facility] Patient Portal. If you would like a full copy of your medical records please contact the [facility] Medical Records Department Friday through Friday between 8a.m. and 4:30p.m. Please follow the directions below to access the portal: 1.Access the email account you provided upon registration to the hospital.2.Look for an invitation email from [facility] [facility].3.Open the email and access the invitation link: Accept Invitation to [facility] ([employer])4.Fill in the required vegas to create your account. Sign into [email or web address] with your username and password that you [...] you will allow to register on the [facility] (mo[employer]) Patient Portal for access to your information. You can also access the [facility] ([employer]) Patient Portal on the Physiq. Simply click on Health Records under [employer] and then click on the [facility] logo. HOW TO SAFELY DISPOSE OF PRESCRIPTION [...] Call your local pharmacy or go to http://Ingageapp.FreeBorders/7Z0Su1p to find one close to you.3.Make use of household items: Use cat litter or old coffee grounds to dispose medications if other options arenot available. Mix your drugs with these household products, seal them in an airtight container andthrow it into the garbage. Call [facility] [place]: [phone] to be sure your drugs can be [...] aware that I should contact my doctor. 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 Signature: Date/Time: Relationship to Patient: Witness Name/Signature: Date/Time: [facility]08-30-2023 Emergency department Discharge summary Discharge Instructions Thank you for allowing [facility] to assist you with your healthcare needs. The following is importantdischarge information regarding your hospital visit. Diagnosis from Today's Visit Abdominal pain What to Do Next Instructions from Your Care Team No qualifying data available. Post Acute Orders No qualifying data available. You Need to Schedule the Following Appointments Follow Up with AARON DUQUE When Within 2-4 days Where: [address] [facility] [place] [address]- [phone] Business (1) Follow Up with NONE PHYSICIAN [...] chest, arm, back, neck or jaw pain [phone] [employer]. [address] [place] [address]. All rights reserved. This information is not intended as a substitute for professional medical care. Always follow yourhealthcare professional's instructions. Additional Information VACCINATE! IT SAVES LIVES! Members of the community who have not yet received the COVID-19 vaccine and would like to receive it can visit one of [facility] vaccine clinics. There are many vaccine clinic locations within the [facility]. For locations and available times, please visit www.gettheshot.coronavirus.[place].gov/. It is important to note that some COVID mobile vaccine clinics are held outdoors and may be canceled in rainy or stormy conditions. To learn more about pediatric vaccinations (ages 5-11), we invite you to visit the [facility] webpage. https://www.[facility].org/pages/2765-Mriep-Kglmiubjqex-Rwngiyffrq-Mfljo-Xvm stions.htmlTo learn more about the COVID-19 vaccine, we invite you to visit the CDC website for a list of frequently asked questions. https://www.cdc.gov/coronavirus/2019-ncov/vaccines/faq.html [facility] (mo[employer]) Patient Portal Access Instructions: Stay connected with your healthcare team and access your personal medical information anytime with the [facility] (moKredit) Patient Portal. If you would like a full copy of your medical records please contact the [facility] Medical Records Department Friday through Friday between 8a.m. and 4:30p.m. Please follow the directions below to access the portal: 1.Access the email account you provided upon registration to the hospital.2.Look for an invitation email from [facility].3.Open the email and access the invitation link: Accept Invitation to [facility] ([employer])4.Fill in the required vegas to create your account. Sign into [email or web address] with your username and password that you [...] you will allow to register on the [employer] Patient Portal for access to your information. You can also access the [employer] Patient Portal on the TreSensa randal. Simply click on Health Records under [facility] and then click on the [employer] logo. HOW TO SAFELY DISPOSE OF PRESCRIPTION [...] Call your local pharmacy or go to http://SupplyFrame/5J2As3i to find one close to you.3.Make use of household items: Use cat litter or old coffee grounds to dispose medications if other options arenot available. Mix your drugs with these household products, seal them in an airtight container andthrow it into the garbage. Call [facility] [place]: [phone] to be sure your drugs can be [...] aware that I should contact my doctor. 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 Signature: Date/Time: Relationship to Patient: Witness Name/Signature: Date/Time: [facility]08-30-2023 Note ORIGINAL EXAMINATION: CT OF THE [...] by: Jorgito Etienne DO Preliminary Report By: Laura Mabry Electronically signed By Jorgito Etienne DO Dictated Date: 02/12/2023 7:28:23 PM Prelim Date: 02/12/2023 7:37:05 PM Sign Date: 02/12/2023 8:10:54 PM Ordering Provider: [facility]08-30-2023 Note Sinus rhythm RSR' in V1 or V2, probably normal variant Baseline wander in lead(s) II,III,aVF,V2 Compared to ECG at 03/08/2018 23:11:38 BORDERLINE ECG Electronic Signature: ANJEL PEÑA DO 02/12/2023 17:53:40[facility] 05-16-2023 NoteORIGINAL PROCEDURE: Fluoroscopic drainage catheter evaluation (Abscessogram) performed on 10/28/2022. INDICATION: LLQ seroma s/p drain and sclerosis. The patient reports minimal drainage recently. COMPARISON: 10/21/2022. TECHNIQUE/FINDINGS: The procedure was performed in the VIR Suite with the patient in the supine position. A holiday detector operator image demonstrated position of the existing [...] By: Esau Love MD Electronically signed By Easu Love MD Dictated Date: 10/29/2022 10:32:58 AM Prelim Date: 10/29/2022 10:35:26 AM Sign Date: 10/29/2022 10:35:26 AM Ordering Provider: [facility] ([place]) 10-29-2022 NoteORIGINAL PROCEDURE: Ultrasound guided percutaneous drainage [...] Sign Date: 10/29/2022 10:32:48 AM Ordering Provider: [facility] ([place])10-28-2022 History and physical note IR PREPROCEDURE H&P [...] 10/10/2022 and can be found in the [facility] Electronic Medical Records ([facility]). Roshni Flores PA-C Interventional Radiology Pager [phone] IR Dept [phone] Available on the [facility] instit[facility]et Digitally Signed by ROSHNI FLORES PA-C on 10/28/2022 05:27 PM [id number] Note* Farrah Mcallister RN: SIGN, AUTHOR, SIGN, AUTHOR, PERFORM Event Display: IR Procedure Record Authored Date: [id number] IR Procedure Record Summary Primary Physician: Finalized Date/Time: 10/28/22 15:00:43 Pt. Name: SANTANAZARIO PATRICKLENORA Marquez/Sex: 1980 Male Med Rec #: [id number] Physician: Financial #: [id number] Pt. Type: O Room/Bed: / Admit/Disch: 10/28/22 [...] 2 Entry 3 Case Attendee ESAU LOVE MDogden, Kier Boiler VanessaBrandie emrcer Kier Boiler Role Performed Radiologist Procedure Scrub Technologist Circulating [...] Case Attendee Farrah Mcallister RN Role Performed Poultry Inseminator 1 Details Time In 10/28/22 14:40:00 Time [...] mL Medication OMNIPAQUE 300 50ML 10/PK Y-530 [facility] [id number] Radiology Flouroscopy Fluoroscopy Used? Yes Fluoro Dose [...] Left By Sky Goff Prep Agents Chloraprep Marta Remy Hair Removal Method N/A Last Modified [...] Radiology - Action Plan Outcomes Met? Yes Cut Off Machine Operator Farrah Mcallister RN Completing Procedure Plan Last Modified By: Farrah Mcallister RN 10/28/22 14:51:12 Case Comments <None> Finalized By: Farrah Mcallister RN Document Signatures Signed By: Farrah Mcallister RN 10/28/22 14:58 Farrah Mcallister RN 10/28/22 15:00 [facility] 05-15-2023 Hospital Discharge instructions Patient Education 10/28/2022 14:57:53 Radiology- Procedure/Biopsy 09/29/2019 (CUSTOM) [place] Radiology Procedure/Biopsy Discharge Instructions Interventional Radiology [facility] [address] [place] [address] Today, you had a . This procedure/biopsy [...] 1 to 2 days following the procedure. Sspt-qhf-tnqaatz pain medication should be used for pain [...] instruction below: 8:00 am- 5:00 pm call [phone] After 5:00 pm call [phone] After 24 hours, contact the physician who [...] with primary care provider Address:Unknown When: Unknown [facility] 05-15-2023 Note IR Procedure Record Summary Primary Physician: Finalized Date/Time: 10/28/22 15:00:43 Pt. Name: ANAMARIA KOROMALENORA Marquez/Sex: 1980 Male Med Rec #: [id number] Physician: Financial #: [id number] Pt. Type: O Room/Bed: / Admit/Disch: 10/28/22 11:44:00 - Institution: Allergies identified in patient's electronic medical record at time of printing on 10/28/22 Entry 1 Entry 2 Entry 3 Substance Keflex Keppra Tape, Paper Reaction Type Allergy Allergy Side Effect Last Modified By: Small, Izabel IBETH Mahmood RN, RN JANE 10/31/16 23:03:04 08/10/13 02:23:55 08/23/13 02:36:21 Entry 4 Entry 5 Substance morphine naproxen Reaction Type Allergy Allergy Last Modified By: IBETH Skelton RN James M 08/10/13 02:22:39 09/05/17 22:20:56 Case Attendance- IR Entry 1 Entry 2 Entry 3 Case Attendee ESAU LOVE MD, Kier Boiler Brandie Mendez Kier Boiler Role Performed Radiologist Procedure Scrub Technologist Circulating [...] Case Attendee Farrah Mcallister RN Role Performed Poultry Inseminator 1 Details Time In 10/28/22 14:40:00 Time [...] mL Medication OMNIPAQUE 300 50ML 10/PK Y-530 [facility] [id number] Radiology Flouroscopy Fluoroscopy Used? Yes Fluoro Dose [...] Left By Sky Goff Prep Agents Chloraprep Marta Remy Hair Removal Method N/A Last Modified [...] Radiology - Action Plan Outcomes Met? Yes Cut Off Machine Operator Farrah Mcallister RN Completing Procedure Plan Last Modified By: Farrah Mcallister RN 10/28/22 14:51:12 Case Comments Finalized By: Farrah Mcallister RN Document Signatures Signed By: Farrah Mcallister RN 10/28/22 14:58 Farrah Mcallister RN 10/28/22 15:00 [facility] [id number] Summary of episode note Discharge Instructions Thank you for allowing [facility] to assist you with your healthcare needs. [...] medication providers or retail pharmacies. Education Materials [place] Radiology Procedure/Biopsy Discharge Instructions Interventional Radiology [facility] [address] [place] [address] Today, you had a . This procedure/biopsy [...] 1 to 2 days following the procedure. Ykhf-fna-dkzoila pain medication should be used for pain [...] instruction below: 8:00 am- 5:00 pm call [phone] After 5:00 pm call [phone] After 24 hours, contact the physician who [...] it can visit one of [facility] vaccine clinics. There are many vaccine clinic locations within the [facility]. For locations and available times, please visit https://[email or web address].[place].gov/. It is important to note that some COVID mobile vaccine clinics are held outdoors and may be canceled in rainy or stormy conditions. To learn more about pediatric vaccinations (ages 5-11), we invite you to visit the [facility] webpage. https://www.[employer].org/pages/5400-Viuut-Rtmjtbphlgb-Whqwxbhmkx-Vyfid-Ddw stions.htmlTo learn more about the COVID-19 vaccine, we invite you to visit the CDC website for a list of frequently asked questions.https://www.cdc.gov/coronavirus/2019-ncov/vaccines/faq.html [facility] Patient Portal Access Instructions: Stay connected with your healthcare team and access your personal medical information anytime with the [employer] Patient Portal. Please follow the directions below to create your [employer] account: 1.Access the email account you provided upon registration to the hospital/physician office.2.Look for an invitation email from [facility].3.Open the email and access the invitation link: AcceptInvitation to [facility] ([employer]).4.Fill in the required vegas to create your account. To access your account, visit [email or web address] StudiosOneCsiria. Click the blue button labeled Access Patient [...] who you will allowto register on the [facility] for access to your information. You can also access the [facility] Patient Portal on the [facility] randal. Simply click on Patient Portal and then log into your account. If you would like to receive a full copy of your medical records, please contact the [facility] Medical Records Department by calling [phone], Friday through Friday between 8 a.m. and [...] Call your local pharmacy or go to http://Ingageapp.FreeBorders/2Y8Gs2g to find one close to you.3.Make use of household items: Use cat litter or old coffee grounds to dispose medications if other options arenot available. Mix your drugs with these household products, seal them in an airtight container andthrow it into the garbage. Call [facility] [place]: [phone] to be sure your drugs can be [...] aware that I should contact my doctor. 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 Signature: Date/Time: Relationship to Patient: Witness Name/Signature: Date/Time: [id number] Evaluation + Plan noteExtracted from: Title:Preprocedure HP [...] 10/10/2022 and can be found in the [facility] ([facility]). Roshni Schwarzentraub, PA-C Interventional Radiology Pager [phone] IR Dept [phone] Available on [employer] Future Scheduled Tests Laboratory* Basic Metabolic Panel 11/23/21 * Carbamazepine Level 11/23/21 * Complete Metabolic Panel 11/23/21 [facility] 05-15-2023 Hospital Discharge instructions Patient Education [...] come back to this facility in person. 5167-9898 [employer]. [address] [place] [address], [place] [address]. All rights reserved. This information is not intended as a substitute for professional medical care. Always follow yourhealthcare professional's instructions. Follow Up Care 10/28/2022 01:29:29 With:The IR department at [facility] Address:Unknown When:Within 1 Day(s) Comments:Follow-up as scheduled later today to have the drain removed.Return to the ED for any problems or concerns. [facility] Note Discharge Instructions Thank you for allowing [facility] to assist you with your healthcare needs. The following is importantdischarge information regarding your hospital visit. Diagnosis from Today's Visit Drain Problem Drain leakage What to Do Next Instructions from Your Care Team No qualifying data available. Post Acute Orders No qualifying data available. You Need to Schedule the Following Appointments Follow Up with The IR department at [facility] When In 1 day Why: Follow-up [...] come back to this facility in person. 2038-2125 [employer]. [address] [place] [address], [place] [address]. All rights reserved. This information is not intended as a substitute for professional medical care. Always follow yourhealthcare professional's instructions. Additional Information VACCINATE! IT SAVES LIVES! Members of the community who have not yet received the COVID-19 vaccine and would like to receive it can visit one of [facility] vaccine clinics. There are many vaccine clinic locations within the [facility]. For locations and available times, please visit www.gettheshot.coronavirus.[place].gov/. It is important to note that some COVID mobile vaccine clinics are held outdoors and may be canceled in rainy or stormy conditions. To learn more about pediatric vaccinations (ages 5-11), we invite you to visit the [facility] webpage. https://www.[facility].org/pages/6845-Jqkxm-Wdiurqnluzq-Ckihgpkjmt-Hbcbe-Cdt stions.htmlTo learn more about the COVID-19 vaccine, we invite you to visit the CDC website for a list of frequently asked questions. https://www.cdc.gov/coronavirus/2019-ncov/vaccines/faq.html [facility] Patient Portal Access Instructions: Stay connected with your healthcare team and access your personal medical information anytime with the [facility] Patient Portal. If you would like a full copy of your medical records please contact the [facility] Medical Records Department Friday through Friday between 8a.m. and 4:30p.m. Please follow the directions below to access the portal: 1.Access the email account you provided upon registration to the [facility].2.Look for an invitation email from [facility].3.Open the email and access the invitation link: Accept Invitation to [facility] ([employer]redit)4.Fill in the required vegas to create your account. Sign into [email or web address] with your username and password that you [...] you will allow to register on the [facility] Patient Portal for access to your information. You can also access the [facility] (moKredit) Patient Portal on the Physiq. Simply click on Health Records under [facility] and then click on the [facility] logo. HOW TO SAFELY DISPOSE OF PRESCRIPTION [...] Call your local pharmacy or go to http://Ingageapp.FreeBorders/2G7Yu6d to find one close to you.3.Make use of household items: Use cat litter or old coffee grounds to dispose medications if other options arenot available. Mix your drugs with these household products, seal them in an airtight container andthrow it into the garbage. Call [facility] [place]: [phone] to be sure your drugs can be [...] aware that I should contact my doctor. 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 Signature: Date/Time: Relationship to Patient: Witness Name/Signature: Date/Time: [facility]05-15-2023 Note Discharge Instructions Thank you for allowing [facility] to assist you with your healthcare needs. The following is importantdischarge information regarding your hospital visit. Diagnosis from Today's Visit Drain Problem Drain leaking What to Do Next Instructions from Your Care Team No qualifying data available. Post Acute Orders No qualifying data available. You Need to Schedule the Following Appointments Follow Up with The IR department at [facility] When In 1 day Why: Follow-up [...] come back to this facility in person. 9211-4613 [employer]. [address] [place] [address], [place] [address]. All rights reserved. This information is not intended as a substitute for professional medical care. Always follow yourhealthcare professional's instructions. Additional Information VACCINATE! IT SAVES LIVES! Members of the community who have not yet received the COVID-19 vaccine and would like to receive it can visit one of [facility] vaccine clinics. There are many vaccine clinic locations within the [facility]. For locations and available times, please visit www.gettheshot.coronavirus.[place].gov/. It is important to note that some COVID mobile vaccine clinics are held outdoors and may be canceled in rainy or stormy conditions. To learn more about pediatric vaccinations (ages 5-11), we invite you to visit the [facility] [facility] [employer] webpage. https://www.[employer].org/pages/8890-Jdhiv-Cbzhjdunjla-Eqaamubgjv-Sstla-Xvk stions.htmlTo learn more about the COVID-19 vaccine, we invite you to visit the CDC website for a list of frequently asked questions. https://www.cdc.gov/coronavirus/2019-ncov/vaccines/faq.html [facility] ([employer]) Patient Portal Access Instructions: Stay connected with your healthcare team and access your personal medical information anytime with the [facility] ([employer]redit) Patient Portal. If you would like a full copy of your medical records please contact the [facility] Medical Records Department Friday through Friday between 8a.m. and 4:30p.m. Please follow the directions below to access the portal: 1.Access the email account you provided upon registration to the hospital.2.Look for an invitation email from [facility].3.Open the email and access the invitation link: Accept Invitation to [facility] ([employer])4.Fill in the required vegas to create your account. Sign into [email or web address] with your username and password that you [...] you will allow to register on the [facility] (moKredit) Patient Portal for access to your information. You can also access the [employer] Patient Portal on the Physiq. Simply click on Health Records under [facility] and then click on the [employer] logo. HOW TO SAFELY DISPOSE OF PRESCRIPTION [...] Call your local pharmacy or go to http://Ingageapp.FreeBorders/5K9Fi3y to find one close to you.3.Make use of household items: Use cat litter or old coffee grounds to dispose medications if other options arenot available. Mix your drugs with these household products, seal them in an airtight container andthrow it into the garbage. Call [facility]: [phone] to be sure your drugs can be [...] aware that I should contact my doctor. 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 Signature: Date/Time: Relationship to Patient: Witness Name/Signature: Date/Time: [facility]05-15-2023 Note Discharge Instructions Thank you for allowing [facility] to assist you with your healthcare needs. The following is importantdischarge information regarding your hospital visit. Diagnosis from Today's Visit Drain Problem Drain leaking What to Do Next Instructions from Your Care Team No qualifying data available. Post Acute Orders No qualifying data available. You Need to Schedule the Following Appointments Follow Up with The IR department at [facility] When In 1 day Why: Follow-up [...] come back to this facility in person. 1009-2712 [employer]. [address] [place] [address]. All rights reserved. This information is not intended as a substitute for professional medical care. Always follow yourhealthcare professional's instructions. Additional Information VACCINATE! IT SAVES LIVES! Members of the community who have not yet received the COVID-19 vaccine and would like to receive it can visit one of [facility] vaccine clinics. There are many vaccine clinic locations within the [facility]. For locations and available times, please visit www.gettheshot.coronavirus.[place].gov/. It is important to note that some COVID mobile vaccine clinics are held outdoors and may be canceled in rainy or stormy conditions. To learn more about pediatric vaccinations (ages 5-11), we invite you to visit the [facility] webpage. https://www.[facility].org/pages/9106-Gxsid-Efcvyvhqfwz-Epqiykarkz-Frlgp-Bar stions.htmlTo learn more about the COVID-19 vaccine, we invite you to visit the CDC website for a list of frequently asked questions. https://www.cdc.gov/coronavirus/2019-ncov/vaccines/faq.html [facility] Patient Portal Access Instructions: Stay connected with your healthcare team and access your personal medical information anytime with the [facility] ([employer]) Patient Portal. If you would like a full copy of your medical records please contact the [facility] Medical Records Department Friday through Friday between 8a.m. and 4:30p.m. Please follow the directions below to access the portal: 1.Access the email account you provided upon registration to the [facility].2.Look for an invitation email from [facility].3.Open the email and access the invitation link: [facility].Fill in the required vegas to create your account. Sign into [email or web address] with your username and password that you [...] you will allow to register on the [facility] ([employer]) Patient Portal for access to your information. You can also access the [facility] Patient Portal on the Physiq. Simply click on Health Records under [employer] and then click on the [employer] logo. HOW TO SAFELY DISPOSE OF PRESCRIPTION [...] Call your local pharmacy or go to http://bit.ly/8F0Ig2a to find one close to you.3.Make use of household items: Use cat litter or old coffee grounds to dispose medications if other options arenot available. Mix your drugs with these household products, seal them in an airtight container andthrow it into the garbage. Call [facility] [place]: [phone] to be sure your drugs can be [...] aware that I should contact my doctor. 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 Signature: Date/Time: Relationship to Patient: Witness Name/Signature: Date/Time: [facility] [id number] Evaluation + Plan noteExtracted from: Title:Preprocedure HP [...] 10/10/2022 and can be found in the [facility] Records ([employer]). Roshni Flores PA-C Interventional Radiology Pager [phone] IR Dept [id number] Available on the [facility] Future Appointments Appointment Date:10/28/2022 01:00:00 PM Scheduled Provider: Location:IR Appointment Type:IR Drainage Cath Injection for Eval Future Scheduled Tests Laboratory* Basic Metabolic Panel 11/23/21 * Carbamazepine Level 11/23/21 * Complete Metabolic Panel 11/23/21 [facility] 05-08-2023 Note* Farrah Mcallister RN: SIGN, AUTHOR, SIGN, AUTHOR, SIGN, AUTHOR, PERFORM Event Display: IR Procedure Record Authored Date: [id number] IR Procedure Record Summary Primary Physician: Finalized Date/Time: 10/21/22 10:43:31 Pt. Name: PATRICK KOROMA/Sex: 1980 Male Med Rec #: [id number] Physician: Financial #: [id number] Pt. Type: O Room/Bed: / Admit/Disch: 10/21/22 [...] Attendee ESAU LOVE MD, Brittaney RN [facility] [employer] [facility] Marta Remy Role Performed Radiologist Procedure Poultry Inseminator 1 Scrub Technologist Details Time In 10/21/22 10:25:00 10/21/22 09:58:00 10/21/22 09:58:00 Time Out 10/21/22 10:38:00 10/21/22 10:38:00 10/21/22 10:38:00 Procedure/Preference IR Sclerotherapy SN IR Sclerotherapy SN IR Sclerotherapy SN Card Last Modified By: Farrah Mcallister RN, Brittaney RN Magee, Brittaney RN 10/21/22 10:38:11 10/21/22 10:38:11 10/21/22 10:38:11 Entry 4 Case Attendee [facility] [employer] Мария Siddiqi Role Performed Circulating Technologist Details [...] Left By Sky Goff Prep Agents Chloraprep Marta K Hair Removal Method Clipped Last Modified [...] Radiology - Action Plan Outcomes Met? Yes Cut Off Machine Operator Farrah Mcallister RN Completing Procedure Plan Last Modified By: Farrah Mcallister RN 10/21/22 10:06:38 Transfer Post Procedure- IR Entry 1 RAD - Transport to Recovery Via Ambulatory Post-op Destination Receiving Transported By Allie Kier BoilerVerito Siddiqi Post Procedure Time Out Double Verification Yes Date/Time Verified 10/21/22 10:37:00 of ID band on patient Completed Verfied ID Band on Farrah Mcallister RN by Last Modified By: Farrah Mcallister RN 10/21/22 10:38:07 Case Comments <None> Finalized By: Farrah Mcallister RN Document Signatures Signed By: Farrah Mcallister RN 10/21/22 10:38 Farrah Mcallister RN 10/21/22 10:38 Farrah Mcallister RN 10/21/22 10:43 [facility] 05-08-2023 Note IR Procedure Record Summary Primary Physician: Finalized Date/Time: 10/21/22 10:43:31 Pt. Name: PATRICK KOROMA/Sex: 1980 Male Med Rec #: [id number] Physician: Financial #: [id number] Pt. Type: O Room/Bed: / Admit/Disch: 10/21/22 [...] Attendee ESAU LOVE MD, Brittaney RN [facility] Kier BoilerVerito Remy Role Performed Radiologist Procedure Poultry Inseminator 1 Scrub Technologist Details Time In 10/21/22 10:25:00 10/21/22 09:58:00 10/21/22 09:58:00 Time Out 10/21/22 10:38:00 10/21/22 10:38:00 10/21/22 10:38:00 Procedure/Preference IR Sclerotherapy SN IR Sclerotherapy SN IR Sclerotherapy SN Card Last Modified By: Farrah Mcallister RN, Brittaney RN Magee, Brittaney RN 10/21/22 10:38:11 10/21/22 10:38:11 10/21/22 10:38:11 Entry 4 Case Attendee Allie Kier BoilerVerito Siddiqi Role Performed Circulating Technologist Details Time [...] images and Sky Goff results are properly Marta K, Sky Kelley and Tech Мария L appropriately displayed, Alcohol based prep dry Instrument Sterility Procedure IR Sclerotherapy SN Last Modified By: Farrah Mcallister RN 10/21/22 10:25:37 Skin Prep- IR Entry 1 Procedure IR Sclerotherapy SN Skin Prep Prep Area Abdomen Side Left By Sky Goff Prep Agents Chloraprep Marta K Hair Removal Method Clipped Last Modified [...] Radiology - Action Plan Outcomes Met? Yes Cut Off Machine Operator Farrah Mcallister RN Completing Procedure Plan Last Modified By: Farrah Mcallister RN 10/21/22 10:06:38 Transfer Post Procedure- IR Entry 1 RAD - Transport to Recovery Via Ambulatory Post-op Destination Receiving Transported By Sky Kelley L Post Procedure Time Out Double Verification Yes Date/Time Verified 10/21/22 10:37:00 of ID band on patient Completed Verfied ID Band on Farrah Mcallister RN by Last Modified By: Farrah Mcallister RN 10/21/22 10:38:07 Case Comments Finalized By: Farrah Mcallister RN Document Signatures Signed By: Farrah Mcallister RN 10/21/22 10:38 Farrah Mcallister RN 10/21/22 10:38 Farrah Mcallister RN 10/21/22 10:43 [id number] History and physical note IR PREPROCEDURE H&P [...] 10/10/2022 and can be found in the [facility] ([employer]). Roshni Flores PA-C Interventional Radiology Pager [phone] IR Dept [id number] Available on [employer] Digitally Signed by ROSHNI FLORES PA-C on 10/21/2022 09:38 AM Digitally Signed by ESAU LOVE MD on 10/21/2022 10:20 AM [id number] Note* Juliocesar Mo Kier Boiler: SIGN, AUTHOR, PERFORM Event Display: IR Procedure Record Authored Date: [id number] IR Procedure Record Summary Primary Physician: RAMIN SAMPSON MD Finalized Date/Time: 09/12/22 14:34:18 Pt. Name: [place] PATRICK Cesar Marquez/Sex: 1980 Male Med Rec #: [id number] Physician: Financial #: [id number] Pt. Type: O Room/Bed: / Admit/Disch: 09/12/22 [...] SAMPSON MD, Alexis Tech Fierstos, Megan R Kier Boiler Role Performed Primary Surgeon Scrub Technologist Circulating Technologist Details Time In 09/12/22 14:14:00 09/12/22 14:10:00 09/12/22 14:10:00 Time Out 09/12/22 14:30:00 09/12/22 14:30:00 09/12/22 14:30:00 Procedure/Preference IR Drainage Cath IR Drainage Cath IR Drainage Cath Card Injection for Eval SN Injection for Eval SN Injection for Eval SN Last Modified By: Juliocesar Mo Rad Juliocesar Mo Rad Alek Mon R Kier Boiler 09/12/22 14:30:28 Tech 09/12/22 14:30:28 Tech 09/12/22 14:30:28 Entry 4 Case Attendee Brandie Mendez Kier Boiler Role Performed Poultry Inseminator 1 Details Time In 09/12/22 14:10:00 Time Out 09/12/22 14:30:00 Procedure/Preference IR Drainage Cath Card Injection for Eval SN Last Modified By: Juliocesar Mo R Kier Boiler 09/12/22 14:30:28 Radiology Procedures- IR Entry 1 Procedure/Preference IR Drainage Cath Actual Procedure ir drain cath inj for Card Injection for Eval SN eval sn Primary Procedure Yes Primary Surgeon RAMIN SAMPSON MD Anesthesia/Sedation None Type Additional Procedure Times Start 09/12/22 14:14:00 Stop 09/12/22 14:25:00 Specialty Service SN Radiology Procedure EBL 0 mL Last Modified By: Juliocesar Mo R Kier Boiler 09/12/22 14:30:33 Radiology Procedure Details - IR Entry 1 Radiology Sedation Case Times Sedation Total Time 0 Radiology - Fluid/Drainage Radiology Contrast Contrast Used? Yes Dose 10 mL Medication OMNIPAQUE 300 50ML 10/PK Y-530 [facility] 8842-8279-37 Radiology Flouroscopy Fluoroscopy Used? Yes Fluoro Dose [...] the drain. Last Modified By: Juliocesar Mo [employer] 09/12/22 14:34:10 General Case Data - IR Entry 1 Case Information Room AH IR 18 Case Level IR Level 2 Wound Class None Specialty SN Radiology Procedure ASA Class None Diagnosis Preop Diagnosis LLQ Seroma Postop Same As Preop Yes Postop Diagnosis LLQ Seroma Last Modified By: Juliocesar Mo Kier Boiler 09/12/22 14:17:00 Procedure Case Times- IR Entry 1 Patient In Procedure Patient In OR 09/12/22 14:10:00 Patient Out of OR 09/12/22 14:30:00 Procedure Start/Stop Procedure Start Time 09/12/22 14:14:00 Procedure Stop Time 09/12/22 14:25:00 Last Modified By: Juliocesar Mo apomio Kier Boiler 09/12/22 14:30:24 Immediate Post Procedure Note - IR Entry 1 Immediate Post Yes Findings Successful drain cath Procedure Note sclerosis w/ etoh 9 ml displayed for Physician to review Closure Technique Closure Technique Other than Primary Last Modified By: Juliocesar Mo [employer] 09/12/22 14:30:14 Immediate Post Procedure Note - IR Signed By: RAMIN SAMPSON MD 09/12/22 14:27 Allergy Information- IR Entry 1 Allergies Reviewed? Yes Allergies Reviewed Patient With Last Modified By: Juliocesar Mo apomio Kier Boiler 09/12/22 14:12:52 Radiology Protocols/Time Out- IR Entry [...] results are properly Tech, Vanessa, labeled and Yolicesar Sellers appropriately displayed, Alcohol based prep dry Instrument Sterility Team Members Vadim Berrios Verifying Sterility Procedure IR Drainage Cath Injection for Eval SN Last Modified By: Juliocesar Mo Kier Boiler 09/12/22 14:15:05 Skin Prep- IR Entry 1 Procedure IR Drainage Cath Injection for Eval SN Skin Prep Prep Area Abdomen Side Left By Vadim Berrios Prep Agents Chloraprep Hair Removal Method N/A Last Modified By: Juliocesar Mo Kier Boiler 09/12/22 14:15:32 Patient Positioning- IR Entry 1 Procedure IR Drainage Cath Body Position OP Supine Injection for Eval SN Feet Uncrossed? Yes Pressure Points n/a Checked Last Modified By: Juliocesar Mo Kier Boiler 09/12/22 14:15:44 Radiology Procedure Plan - IR [...] symptoms of electrical injury. Outcomes Met? Yes Cut Off Machine Operator Juliocesar Mo Rad Completing Tech Procedure Plan Last Modified By: Juliocesar Mo Kier Boiler 09/12/22 14:16:26 Case Comments <None> Finalized By: Juliocesar Mo Document Signatures Signed By: Juliocesar Mo Kier Boiler 09/12/22 14:34 [facility] 03-30-2023 Hospital Discharge instructions Patient Education 09/12/2022 14:26:09 Radiology- Procedure/Biopsy 09/29/2019 (CUSTOM) [place] Radiology Procedure/Biopsy Discharge Instructions Interventional Radiology [facility] [address] [address] Today, you had a . This procedure/biopsy [...] 1 to 2 days following the procedure. Rodk-acx-pnnfwkd pain medication should be used for pain [...] instruction below: 8:00 am- 5:00 pm call [phone] After 5:00 pm call [phone] After 24 hours, contact the physician who [...] with primary care provider Address:Unknown When: Unknown [facility] 03-30-2023 Interventional radiology Progress note IR [...] MARSHALL CROCKER PA-C on 09/12/2022 04:08 PM [facility] [id number] Note IR Procedure Record Summary Primary Physician: RAMIN SAMPSON MD Finalized Date/Time: 09/12/22 14:34:18 Pt. Name: PATRICK KOROMA /Sex: 1980 Male Med Rec #: [id number] Physician: Financial #: [id number] Pt. Type: O Room/Bed: / Admit/Disch: 09/12/22 [...] Tech 09/12/22 14:30:28 Entry 4 Case Attendee Vanessa Brandie Devang Kier Boiler Role Performed Poultry Inseminator 1 Details Time In 09/12/22 14:10:00 Time Out 09/12/22 14:30:00 Procedure/Preference IR Drainage Cath Card Injection for Eval SN Last Modified By: Juliocesar Mo R Kier Boiler 09/12/22 14:30:28 Radiology Procedures- IR Entry 1 Procedure/Preference IR Drainage Cath Actual Procedure ir drain cath inj for Card Injection for Eval SN eval sn Primary Procedure Yes Primary Surgeon RAMIN SAMPSON MD Anesthesia/Sedation None Type Additional Procedure Times Start 09/12/22 14:14:00 Stop 09/12/22 14:25:00 Specialty Service SN Radiology Procedure EBL 0 mL Last Modified By: Juliocesar Mo R Kier Boiler 09/12/22 14:30:33 Radiology Procedure Details - IR Entry 1 Radiology Sedation Case Times Sedation Total Time 0 Radiology - Fluid/Drainage Radiology Contrast Contrast Used? Yes Dose 10 mL Medication OMNIPAQUE 300 50ML 10/PK Y-530 [facility] 4063-7145-31 Radiology Flouroscopy Fluoroscopy Used? Yes Fluoro Dose [...] drain. Last Modified By: Juliocesar Mo R Kier Boiler 09/12/22 14:34:10 General Case Data - IR Entry 1 Case Information Room IR 18 Case Level IR Level 2 Wound Class None Specialty SN Radiology Procedure ASA Class None Diagnosis Preop Diagnosis LLQ Seroma Postop Same As Preop Yes Postop Diagnosis LLQ Seroma Last Modified By: Juliocesar Mo R Kier Boiler 09/12/22 14:17:00 Procedure Case Times- IR Entry 1 Patient In Procedure Patient In OR 09/12/22 14:10:00 Patient Out of OR 09/12/22 14:30:00 Procedure Start/Stop Procedure Start Time 09/12/22 14:14:00 Procedure Stop Time 09/12/22 14:25:00 Last Modified By: Juliocesar Mo R Kier Boiler 09/12/22 14:30:24 Immediate Post Procedure Note - IR Entry 1 Immediate Post Yes Findings Successful drain cath Procedure Note sclerosis w/ etoh 9 ml displayed for Physician to review Closure Technique Closure Technique Other than Primary Last Modified By: Juliocesar Mo R Kier Boiler 09/12/22 14:30:14 Immediate Post Procedure Note - IR Signed By: RAMIN SAMPSON MD 09/12/22 14:27 Allergy Information- IR Entry 1 Allergies Reviewed? Yes Allergies Reviewed Patient With Last Modified By: Juliocesar Mo R Kier Boiler 09/12/22 14:12:52 Radiology Protocols/Time Out- IR Entry [...] properly Tech, Vanessa, labeled and Terra L Kier Boiler appropriately displayed, Alcohol based prep dry Instrument Sterility Team Members Vadim Berrios Verifying Sterility Procedure IR Drainage Cath Injection for Eval SN Last Modified By: Juliocesar Mo R Kier Boiler 09/12/22 14:15:05 Skin Prep- IR Entry 1 Procedure IR Drainage Cath Injection for Eval SN Skin Prep Prep Area Abdomen Side Left By Vadim Berrios Prep Agents Chloraprep Hair Removal Method N/A Last Modified By: Juliocesar Mo R Kier Boiler 09/12/22 14:15:32 Patient Positioning- IR Entry 1 Procedure IR Drainage Cath Body Position OP Supine Injection for Eval SN Feet Uncrossed? Yes Pressure Points n/a Checked Last Modified By: Juliocesar Mo [employer] 09/12/22 14:15:44 Radiology Procedure Plan - IR [...] symptoms of electrical injury. Outcomes Met? 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 [...] medication providers or retail pharmacies. [facility] [place] Radiology Procedure/Biopsy Discharge Instructions Interventional Radiology [facility] [address] [place] [address] Today, you had a . This procedure/biopsy [...] 1 to 2 days following the procedure. Gjky-jqg-mupgfuk pain medication should be used for pain [...] instruction below: 8:00 am- 5:00 pm call [phone] After 5:00 pm call [phone] After 24 hours, contact the physician who [...] it can visit one of [facility] vaccine clinics. There are many vaccine clinic locations within the [facility]. For locations and available times, please visit [email or web address]/. It is important to note that some COVID mobile vaccine clinics are held outdoors and may be canceled in rainy or stormy conditions. To learn more about pediatric vaccinations (ages 5-11), we invite you to visit the [facility] webpage. https://www.[email or web address]/pages/[email or web address]-Bgtgydrmok-Iktaj-Ldj [email or web address].htmlTo learn more about the COVID-19 vaccine, we invite you to visit the CDC website for a list of frequently asked questions. https://www.cdc.gov/coronavirus/2019-ncov/vaccines/faq.html [facility] Patient Portal Access Instructions: Stay connected with your healthcare team and access your personal medical information anytime with the [facility] Patient Portal.If you would like a full copy of your medical records, please contact the [facility] Medical Records Department, Friday through Friday between 8a.m. and 4:30p.m. Please follow the directions below to access the portal: 1.Access the email account you provided upon registration to the hospital.2.Look for an invitation email from [facility].3.Open the email and access the invitation link: Accept Invitation to [facility])4.Fill in the required vegas to create your account. Sign into [email or web address] with your username and password that you [...] you will allow to register on the [facility] Patient Portal for access to your information. You can also access the [facility] Patient Portal on the [employer] randal. Simply click on Health Records under [employer] and then click on the [employer] logo. HOW TO SAFELY DISPOSE OF PRESCRIPTION [...] Call your local pharmacy or go to [email or web address] to find one close to you.3.Make use of household items: Use cat litter or old coffee grounds to dispose medications if other options arenot available. Mix your drugs with these household products, seal them in an airtight container andthrow it into the garbage. Call [facility] [place]: [phone] to be sure your drugs can be [...] aware that I should contact my doctor. 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 Signature: Date/Time: Relationship to Patient: Witness Name/Signature: Date/Time: [facility]omuifk65-01-9894 Evaluation + Plan noteExtracted from: Title:IR pre [...] paper, which has been scanned into the [facility] PACS/RIS system. _ Future Scheduled Tests Laboratory* Basic Metabolic Panel 11/23/21 * Carbamazepine Level 11/23/21 * Complete Metabolic Panel 11/23/21 [facility] 03-30-2023 History and physical note IR [...] paper, which has been scanned into the [facility] PACS/RIS system. _ Digitally Signed by MARSHALL CROCKER PA-C on 09/12/2022 01:30 PM [facility] HospitalGpkfofhe72-57-3394 Evaluation + Plan noteExtracted from: Title:IR pre-procedure [...] 08/28/2022 and can be found in the [facility] Records ([employer]). Harriet Leonard PA-C Interventional Radiology Pager: [phone] IR dept: x [phone] Available on [facility] Future Appointments Appointment Date:09/12/2022 02:00:00 PM Scheduled Provider: Location:IR Appointment Type:IR Drainage Cath Injection for Eval Future Scheduled Tests Laboratory* Basic Metabolic Panel 11/23/21 * Carbamazepine Level 11/23/21 * Complete Metabolic Panel 11/23/21 [facility] 03-23-2023 Hospital Discharge instructions Patient Education 09/05/2022 11:49:33 Radiology- Procedure/Biopsy 09/29/2019 (CUSTOM) [place] Radiology Procedure/Biopsy Discharge Instructions Interventional Radiology [facility] [address] [place] [address] Today, you had a Drain insertion . [...] 1 to 2 days following the procedure. Chsz-dvu-ugqmtbf pain medication should be used for pain [...] instruction below: 8:00 am- 5:00 pm call [phone] After 5:00 pm call [phone] After 24 hours, contact the physician who [...] with primary care provider Address:Unknown When: Unknown [facility] 03-23-2023 Note* IBETH Regalado Riley: SIGN, AUTHOR, PERFORM Event Display: IR Procedure Record Authored Date: [id number] IR Procedure Record Summary Primary Physician: ROSHNI FLORES PA-C Finalized Date/Time: 09/05/22 11:48:45 Pt. Name: SANTAZOEYMARITZAPATRICK/Sex: 1980 Male Med Rec #: [id number] Physician: Financial #: [id number] Pt. Type: O Room/Bed: / Admit/Disch: 09/05/22 [...] Entry 2 Entry 3 Case Attendee ROSHNI FLORES, Lacey Garcia, [employer] Tatyana ZARATE Role Performed Primary Surgeon Scrub [...] 4 Case Attendee IBETH Regalado Role Performed Poultry Inseminator 1 Details Time In 09/05/22 11:21:00 Time [...] Fermín Mejía Rad Tech results are properly TatyanaSabine RN Corey labeled and appropriately displayed, Alcohol [...] Radiology - Action Plan Outcomes Met? Yes Cut Off Machine Operator IBETH Regalado Completing Procedure Plan Last Modified By: IBETH Regalado 09/05/22 11:26:48 Case Comments <None> Finalized By: IBETH Regalado Document Signatures Signed By: IBETH Regalado 09/05/22 11:48 [facility] 03-23-2023 History and physical note IR [...] 08/28/2022 and can be found in the [facility] ([employer]). Harriet Leonard PA-C Interventional Radiology Pager: [phone] IR dept: x [phone] Available on [email or web address]tvt Digitally Signed by HARRIET LEONARD PA-C on 09/05/2022 11:54 AM Digitally Signed by ESAU LOVE MD on 09/05/2022 03:20 PM [facility] HospitalWelcvaqr63-35-7234 Summary of episode note Discharge Instructions Thank you for allowing [facility] to assist you with your healthcare needs. [...] medication providers or retail pharmacies. Education [facility] [place] Radiology Procedure/Biopsy Discharge Instructions Interventional Radiology [facility] [address] Today, you had a Drain insertion . [...] 1 to 2 days following the procedure. Edbq-tzb-bzohqdm pain medication should be used for pain [...] instruction below: 8:00 am- 5:00 pm call [phone] After 5:00 pm call [phone] After 24 hours, contact the physician who [...] it can visit one of [facility] vaccine clinics. There are many vaccine clinic locations within the [facility]. For locations and available times, please visit [email or web address]/. It is important to note that some COVID mobile vaccine clinics are held outdoors and may be canceled in rainy or stormy conditions. To learn more about pediatric vaccinations (ages 5-11), we invite you to visit the [facility] webpage. https://www.[email or web address].org/pages/5355-Fauqw-Godpuzckemj-Owtitqzeyc-Ofocl-Rim stions.htmlTo learn more about the COVID-19 vaccine, we invite you to visit the CDC website for a list of frequently asked questions. https://www.cdc.gov/coronavirus/2019-ncov/vaccines/faq.html [facility] Patient Portal Access Instructions: Stay connected with your healthcare team and access your personal medical information anytime with the [facility] Patient Portal.If you would like a full copy of your medical records, please contact the [facility] Medical Records Department, Friday through Friday between 8a.m. and 4:30p.m. Please follow the directions below to access the portal: 1.Access the email account you provided upon registration to the hospital.2.Look for an invitation email from [facility].3.Open the email and access the invitation link: Accept Invitation to [facility])4.Fill in the required vegas to create your account. Sign into [email or web address] with your username and password that you [...] you will allow to register on the [facility] Patient Portal for access to your information. You can also access the [facility] Patient Portal on the [employer] randal. Simply click on Health Records under [facility] and then click on the [facility] logo. HOW TO SAFELY DISPOSE OF PRESCRIPTION [...] Call your local pharmacy or go to [email or web address] to find one close to you.3.Make use of household items: Use cat litter or old coffee grounds to dispose medications if other options arenot available. Mix your drugs with these household products, seal them in an airtight container andthrow it into the garbage. Call [facility] [place]: [phone] to be sure your drugs can be [...] aware that I should contact my doctor. 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 Signature: Date/Time: Relationship to Patient: Witness Name/Signature: Date/Time: [facility] [id number] Note IR Procedure Record Summary Primary Physician: ROSHNI FLORES PA-C Finalized Date/Time: 09/05/22 11:48:45 Pt. Name: PATRICK KOROMA Cesar Collins/Sex: 1980 Male Med Rec #: [id number] Physician: Financial #: [id number] Pt. Type: O Room/Bed: / Admit/Disch: 09/05/22 [...] Case Attendee ROSHNI FLORES Jacque M. Allen, Kier BoilerVerito Joe PA-C Role Performed Primary Surgeon Scrub [...] 4 Case Attendee IBETH Regalado Role Performed Poultry Inseminator 1 Details Time In 09/05/22 11:21:00 Time [...] ZARATE Jacque Relevant images and Fermín Mejía Kier Boiler results are properly Sabine Joe RN Corey [...] Radiology - Action Plan Outcomes Met? Yes Cut Off Machine Operator IBETH Regalado Completing Procedure Plan Last Modified By: IBETH Regalado 09/05/22 11:26:48 Case Comments Finalized By: IBETH Regalado Document Signatures Signed By: IBETH Regalado 09/05/22 11:48 [id number] Discharge instructions Patient Education 08/28/2022 21:50:43 [...] up Rapid heart rate Shortness of breath 7762-2928 [employer]. [address] [place] [address]. All rights reserved. This information is not intended as a substitute for professional medical care. Always follow yourhealthcare professional's instructions. Follow Up Care 08/28/2022 19:04:00 With:AARON DUQUE MD, Surgery Address: [address] [address] [phone] When:2-4 days [facility] 03-15-2023 Emergency department Discharge summary Discharge Instructions Thank you for allowing [facility] to assist you with your healthcare needs. The following is importantdischarge information regarding your hospital visit. Diagnosis from Today's Visit Seroma Abdominal pain What to Do Next Instructions from Your Care Team No qualifying data available. Post Acute Orders No qualifying data available. You Need to Schedule the Following Appointments Follow Up with AARON DUQUE MD, Surgery When Within 2-4 days Where: [address] [facility] [address] [place] [address] [phone] Allergies Keflex Keppra (Rash) Tape, Paper (Rash) morphine (Rash) naproxen Medications Please ask your primary doctor or pharmacist before taking any other medication not listed, including over the counter drugs, herbal medications, vitamins and or supplements as they may interact withyour home medications. What How Much When Why Instructions Last Dose New acetaminophen-hydrocodone (Ogallah 325- 5 mg oral tablet) 1 tab(s) [...] up Rapid heart rate Shortness of breath [phone] [employer]. [address] [place] [address], [place] [address]. All rights reserved. This information is not intended as a substitute for professional medical care. Always follow yourhealthcare professional's instructions. Additional Information VACCINATE! IT SAVES LIVES! Members of the community who have not yet received the COVID-19 vaccine and would like to receive it can visit one of [facility] vaccine clinics. There are many vaccine clinic locations within the [facility]. For locations and available times, please visit www.[email or web address].[email or web address]/. It is important to note that some COVID mobile vaccine clinics are held outdoors and may be canceled in rainy or stormy conditions. To learn more about pediatric vaccinations (ages 5-11), we invite you to visit the [facility] webpage. https://www.[employer].org/pages/3784-Lqjeb-Syzshuobyqe-Vbqmpjqrxe-Kizbf-Ngg stions.htmlTo learn more about the COVID-19 vaccine, we invite you to visit the CDC website for a list of frequently asked questions. https://www.cdc.gov/coronavirus/2019-ncov/vaccines/faq.html [email or web address] Patient Portal Access Instructions: Stay connected with your healthcare team and access your personal medical information anytime with the [facility] Patient Portal. If you would like a full copy of your medical records please contact the [facility] Medical Records Department Friday through Friday between 8a.m. and 4:30p.m. Please follow the directions below to access the portal: 1.Access the email account you provided upon registration to the hospital.2.Look for an invitation email from [facility].3.Open the email and access the invitation link: Accept Invitation to [facility] ([facility])4.Fill in the required vegas to create your account. Sign into [email or web address] with your username and password that you [...] you will allow to register on the [facility] One[facility] Patient Portal for access to your information. You can also access the [employer] Patient Portal on the Physiq. Simply click on Health Records under [facility] and then click on the [employer] logo. HOW TO SAFELY DISPOSE OF PRESCRIPTION [...] Call your local pharmacy or go to http://Ingageapp.FreeBorders/8P7Cz2v to find one close to you.3.Make use of household items: Use cat litter or old coffee grounds to dispose medications if other options arenot available. Mix your drugs with these household products, seal them in an airtight container andthrow it into the garbage. Call [facility]: [phone] to be sure your drugs can be [...] aware that I should contact my doctor. 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 Signature: Date/Time: Relationship to Patient: Witness Name/Signature: Date/Time: [facility]03-15-2023 Note ORIGINAL EXAMINATION: CT OF THE [...] Sign Date: 08/28/2022 9:32:42 PM Ordering Provider: [facility]03-15-2023 Note ORIGINAL EXAMINATION: CT OF THE ABDOMEN [...] up Rapid heart rate Shortness of breath 4846-4554 [employer]. [address] [place] [address]. All rights reserved. This information is not intended as a substitute for professional medical care. Always follow yourhealthcare professional's instructions. Follow Up Care 08/18/2022 11:30:43 With:AARON DUQUE MD, Surgery Address: [address] [facility] [address] [facility] [place] [address]- [phone] When:2-4 days [facility] 03-05-2023 Note ORIGINAL EXAMINATION: CT OF [...] Interpreted by: Anthony Miner Preliminary Report By: Laura Mabry Electronically signed By Anthony Miner Dictated Date: 08/18/2022 3:07:53 PM Prelim Date: 08/18/2022 3:20:18 PM Sign Date: 08/18/2022 4:08:21 PM Ordering Provider: JONELLE GERARD [id number] Emergency department Discharge summary Discharge Instructions Thank you for allowing [facility] to assist you with your healthcare needs. [...] Surgery When Within 2-4 days Where: [address] [facility] [address] [place] [address] [phone] Allergies Keflex Keppra (Rash) Tape, Paper (Rash) morphine (Rash) naproxen Medications Please ask your primary doctor or pharmacist before taking any other medication not listed, including over the counter drugs, herbal medications, vitamins and or supplements as they may interact withyour home medications. What How Much When Why Instructions Last Dose New acetaminophen-hydrocodone (Ogallah 325- 5 mg oral tablet) 1 tab(s) [...] up Rapid heart rate Shortness of breath 2430-3570 [employer]. [address] [place] [address], [place] [address]. All rights reserved. This information is not intended as a substitute for professional medical care. Always follow yourhealthcare professional's instructions. Additional Information VACCINATE! IT SAVES LIVES! Members of the community who have not yet received the COVID-19 vaccine and would like to receive it can visit one of [facility] vaccine clinics. There are many vaccine clinic locations within the [facility]. For locations and available times, please visit www.[email or web address].[place].gov/. It is important to note that some COVID mobile vaccine clinics are held outdoors and may be canceled in rainy or stormy conditions. To learn more about pediatric vaccinations (ages 5-11), we invite you to visit the [facility] webpage. https://www.[facility].org/pages/9887-Wqexn-Nmgnphupxpc-Qfjvwjveoq-Hdhwg-Qmh stions.htmlTo learn more about the COVID-19 vaccine, we invite you to visit the CDC website for a list of frequently asked questions. https://www.cdc.gov/coronavirus/2019-ncov/vaccines/faq.html [facility] Patient Portal Access Instructions: Stay connected with your healthcare team and access your personal medical information anytime with the [facility] Patient Portal. If you would like a full copy of your medical records please contact the [facility] Medical Records Department Friday through Friday between 8a.m. and 4:30p.m. Please follow the directions below to access the portal: 1.Access the email account you provided upon registration to the [facility].2.Look for an invitation email from [facility].3.Open the email and access the invitation link: Accept Invitation to [facility] ([employer])4.Fill in the required vegas to create your account. Sign into [email or web address] with your username and password that you [...] you will allow to register on the [facility] Patient Portal for access to your information. You can also access the [facility] Patient Portal on the Physiq. Simply click on Health Records under [facility] and then click on the [facility] logo. HOW TO SAFELY DISPOSE OF PRESCRIPTION [...] Call your local pharmacy or go to http://Ingageapp.FreeBorders/1V7Jy5q to find one close to you.3.Make use of household items: Use cat litter or old coffee grounds to dispose medications if other options arenot available. Mix your drugs with these household products, seal them in an airtight container andthrow it into the garbage. Call [facility]: [phone] to be sure your drugs can be [...] aware that I should contact my doctor. 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 Signature: Date/Time: Relationship to Patient: Witness Name/Signature: Date/Time: [facility]1417 Note ORIGINAL EXAMINATION: CT OF THE ABDOMEN [...] Interpreted by: Anthony Miner Preliminary Report By: Laura Mabry Electronically signed By Anthony Miner Dictated Date: 08/18/2022 3:07:53 PM Prelim Date: 08/18/2022 3:20:18 PM Sign Date: 08/18/2022 4:08:21 PM Ordering Provider: JONELLE Mclean [id number] Hospital Discharge instructions Patient Education 07/22/2022 13:14:21 [...] stores. You don t need a prescription. 9443-7281 [employer]. [address] [place] [address]. All rights reserved. This information is not intended as a substitute for professional medical care. Always follow yourhealthcare professional's instructions. Follow Up Care 07/22/2022 10:03:39 With:Call Physician Referral Address:Unknown When:2-4 days With:Follow up with primary care provider Address:Unknown When:2-4 days [facility] 02-06-2023 Note Discharge Instructions Thank you for allowing [facility] to assist you with your healthcare needs. [...] Why Instructions Last Dose Unchanged acetaminophen- hydrocodone (Ogallah 325- 5 mg oral tablet) 1 tab(s) [...] stores. You don t need a prescription. 2255-5425 [employer]. [address] [place] [address], [place] [address]. All rights reserved. This information is not intended as a substitute for professional medical care. Always follow yourhealthcare professional's instructions. Additional Information VACCINATE! IT SAVES LIVES! Members of the community who have not yet received the COVID-19 vaccine and would like to receive it can visit one of [facility] vaccine clinics. There are many vaccine clinic locations within the [facility]. For locations and available times, please visit www.[email or web address]. It is important to note that some COVID mobile vaccine clinics are held outdoors and may be canceled in rainy orstormy conditions. To learn more about pediatric vaccinations (ages 5-11), we invite you to visit the [facility] webpage. https://www.[employer].org/pages/8277-Delij-Zgfuskwslwh-Lzfqjfyeco-Jdfot-Bpl stions.htmlTo learn more about the COVID-19 vaccine, we invite you to visit the [facility] website for a list of frequently asked questions. https://[facility].org/assets/Pqhweqwn-kte-Eklhftkf/qjyuo-Lndgeww-Zpknigdwbm _Asked-Questions.pdf [facility] Patient Portal Access Instructions: Stay connected with your healthcare team and access your personal medical information anytime with the [facility] Patient Portal. If you would like a full copy of your medical records please contact the [facility] Medical Records Department Friday through Friday between 8a.m. and 4:30p.m. Please follow the directions below to access the portal: 1.Access the email account you provided upon registration to the [facility].2.Look for an invitation email from [facility].3.Open the email and access the invitation link: Accept Invitation to [facility])4.Fill in the required vegas to create your account. Sign into [email or web address] with your username and password that you [...] you will allow to register on the [facility] ([employer]) Patient Portal for access to your information. You can also access the [facility] Patient Portal on the Physiq. Simply click on Health Records under [facility] and then click on the [employer] logo. HOW TO SAFELY DISPOSE OF PRESCRIPTION [...] Call your local pharmacy or go to http://Ingageapp.FreeBorders/2L6Ak5p to find one close to you.3.Make use of household items: Use cat litter or old coffee grounds to dispose medications if other options arenot available. Mix your drugs with these household products, seal them in an airtight container andthrow it into the garbage. Call [facility]: [phone] to be sure your drugs can be [...] aware that I should contact my doctor. 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 Signature: Date/Time: Relationship to Patient: Witness Name/Signature: Date/Time: [facility]02-06-2023 Surgery Consult note Date of Service 07/22/2022 Reason for Consultation Nausea and vomiting x24 to [address] 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 The patient states that [...] He admits that he was taking his Ogallah on schedule every 6 hours and not [...] vomiting due to the regular use of Ogallah taking it as scheduled every 6 hours [...] works for him. Avoid using any further Ogallah unless absolutely necessary and take regular doses of Tylenol alternating with ibuprofen. As his nausea resolves hopefully over the next couple days he can reintroduce solid food. Slowly. He will have a follow-up on in the office. A prescription for Zofran has been sent to his pharmacy which he can pick remover and use as needed. I donot think [...] Medications Inpatient No active inpatient medications Home Ogallah 325- 5 mg oral tablet, 1 tab(s), [...] AARON DUQUE MD on 07/22/2022 01:23 PM [facility]02-06-2023 Note ORIGINAL EXAMINATION: CT OF THE [...] Sign Date: 07/22/2022 11:41:58 AM Ordering Provider: [facility]02-06-2023 Note ORIGINAL EXAMINATION: CT OF THE [...] Sign Date: 07/22/2022 11:41:58 AM Ordering Provider: [facility]02-02-2023 Hospital Discharge instructions Patient Education 07/18/2022 11:53:26 [...] 06/21/2019 Document Revised: 06/21/2019 Document Reviewed: 06/21/2019 [employer] Patient Education 2019 [employer] 07/18/2022 11:53:21 How to Use an [...] as possible. If the spirometer includes a wellness health coach indicator, use this to guide you [...] 10/13/2007 Document Revised: 06/25/2018 Document Reviewed: 04/15/2018 [employer] Patient Education 2020 The [employer] website. 07/18/2022 11:45:57 Surgical Drain Home Care Surgical [...] placed at your back, or any other shjo-hj-ffqhp area, ask another person to assist you [...] and water are not available, use hand fire extinguisher technician. 3.Remove the old dressing. Avoid using scissors [...] and water are not available, use hand fire extinguisher technician. 3.Loosen any pins or clips that hold [...] placed at your back, or any other kgiw-yg-hdefe area, ask another person to assist you. [...] Document Reviewed: 07/07/2019 Elsevier Patient Education 2020 [employer] 07/18/2022 11:45:56 8- Ryan Pantoja Drain [...] Document Reviewed: 06/03/2014 ExitCare Patient Information 2015 [employer] [facility]. This information is not intended to [...] garbage bag. Soap and water, or hand fire extinguisher technician. Wound cleanser or salt-water solution (saline). New [...] soap and water are notavailable, use hand fire extinguisher technician. 3.Set up a clean station for wound [...] soap and water are notavailable, use hand fire extinguisher technician. Clean your wound Wear gloves, protective clothing, [...] soap and water are notavailable, use hand fire extinguisher technician. Apply new dressing Wear gloves, protective clothing, [...] soap and water are notavailable, use hand fire extinguisher technician. 8.Turn the pump back on. The sponge dressing should collapse. Do not change the settings on the machine without talking to a health care provider. 9.Replace the container in the pump that collects fluid if it is full. Replace the container per the operations architect's instructions or at least once a week, [...] all clamps are open. Do not use yvkm-ycc-llnmdtp medicated or antiseptic creams, sprays, liquids, or [...] 08/24/2012 Document Revised: 09/24/2019 Document Reviewed: 08/20/2019 [employer] Patient Education 2020 The [employer] website. 07/18/2022 11:39:25 Nausea and Vomiting, Adult Nausea [...] water added (diluted fruit juice). Eat bland, orcz-ov-fpfljk foods in small amounts as you are able. These foods include bananas, applesauce, rice, lean meats, toast, and crackers. Avoid fluids that contain a lot of sugar or caffeine, such as energy drinks, sports drinks, and soda. Avoid alcohol. Avoid spicy or fatty foods. General instructions Take aout-ezq-jlmnaph and prescription medicines only as told by your health care provider. Drink enough fluid to keep your urine pale yellow. Wash your hands often using soap and water. If soap and water are not available, use hand fire extinguisher technician. Make sure that all people in your [...] eating and drinking to prevent dehydration. Take qpjz-qqc-dmnzpip and prescription medicines only as told by [...] 06/02/2006 Document Revised: 09/24/2019 Document Reviewed: 11/10/2018 [employer] Patient Education 2020 The [employer] website. 07/18/2022 11:39:15 Monitored Anesthesia Care, Care After [...] before eating solid foods. General instructions Take ekoi-zmz-gmnrxdx and prescription medicines only as told by [...] 09/22/2016 Document Revised: 08/31/2018 Document Reviewed: 09/22/2016 [employer] Patient Education 2020 The [employer] website. 07/18/2022 11:39:09 Open Hernia Repair, Adult, Care [...] and water are not available, use hand fire extinguisher technician. ?Change your dressing as told by your [...] your urine clear or pale yellow. ?Take rhdq-mdq-jkcxelh or prescription medicines. ?Eat foods that are high in fiber, such as fresh fruits and vegetables, whole grains, and beans. ?Limit foods that are high in fat and processed sugars, such as fried and sweet foods. Take xzdq-ewz-gelwtuc and prescription medicines only as told by [...] 12/20/2005 Document Revised: 05/15/2018 Document Reviewed: 11/13/2016 [employer] Patient Education 2020 The [employer] website. Follow Up Care 07/02/2022 10:17:34 With:AARON DUQUE MD, Surgery Address: [address] [facility] [address] [facility] [place] [address]- [phone] When:07/25/2022 10:00:00 Comments:Follow-up as scheduled [facility] 02-02-2023 Summary of episode note Discharge Instructions Thank you for allowing [facility] to assist you with your healthcare needs. The following is importantdischarge information regarding your hospital visit. Your Care Team AARON DUQUE MD Your Diagnosis Acute post-operative pain What to do next Follow Up Appointments Follow Up with AARON DUQUE MD, Surgery When In 2 weeks Why: Call office to schedule follow up appointment. Where: [address] [facility] [address]- [phone] The Following Activity and Diet Have Been Ordered for You Discharge Activity - Ordered -- Sexual Wallace Restricted No bending, twisting, crawling or squatt, [...] When Why Instructions Last Dose New acetaminophen-hydrocodone (Ogallah 325- 5 mg oral tablet) 1 tab(s) by mouth Every 4 hours as needed for Pain, scale 4-6 Acute post-operative pain Duration: 7 Days Pickup at [facility]/pharmacy #[id number] Unchanged carBAMazepine (TEGretol 200 mg oral tablet) 3 tab(s) by mouth Two (2) times a day Seizure Post-operative state s/p umbilical hernia repair, possible seizure following surgery Pharmacy Information [facility]/pharmacy #[id number]: [address], [place] [phone] Please take this list to your next [...] as possible. If the spirometer includes a wellness health coach indicator, use this to guide you [...] 10/13/2007 Document Revised: 06/25/2018 Document Reviewed: 04/15/2018 [employer] Patient Education 2020 The [employer] website. Surgical Drain Home Care Surgical drains are [...] placed at your back, or any other trxw-mb-umred area, ask another person to assist you [...] and water are not available, use hand fire extinguisher technician. 3. Remove the old dressing. Avoid using [...] and water are not available, use hand fire extinguisher technician. 3. Loosen any pins or clips that [...] placed at your back, or any other vnrj-ky-gtfal area, ask another person to assist you. [...] Document Reviewed: 07/07/2019 Elsevier Patient Education 2019 The [employer] website. Ryan Pantoja Drain Patient Education After surgery, [...] Document Reviewed: 06/03/2014 ExitCare Patient Information 2015 [employer]. This information is not intended to replace [...] garbage bag. Soap and water, or hand fire extinguisher technician. Wound cleanser or salt-water solution (saline). New [...] and water are not available, use hand fire extinguisher technician. 3. Set up a clean station for [...] and water are not available, use hand fire extinguisher technician. Clean your wound Wear gloves, protective clothing, [...] and water are not available, use hand fire extinguisher technician. Apply new dressing Wear gloves, protective clothing, [...] and water are not available, use hand fire extinguisher technician. 8. Turn the pump back on. The sponge dressing should collapse. Do not change the settings on the machine without talking to a health care provider. 9. Replace the container in the pump that collects fluid if it is full. Replace the container per the operations architect's instructions or at least once a week, [...] all clamps are open. Do not use qavm-uiy-fltsbwt medicated or antiseptic creams, sprays, liquids, or [...] 08/24/2012 Document Revised: 09/24/2019 Document Reviewed: 08/20/2019 [employer] Patient Education 2020 The [employer] website. Nausea and Vomiting, Adult Nausea is the [...] water added (diluted fruit juice). Eat bland, imuz-hx-hzzorn foods in small amounts as you are able. These foods include bananas, applesauce, rice, lean meats, toast, and crackers. Avoid fluids that contain a lot of sugar or caffeine, such as energy drinks, sports drinks, and soda. Avoid alcohol. Avoid spicy or fatty foods. General instructions Take kqoo-zbc-ptycqeh and prescription medicines only as told by your health care provider. Drink enough fluid to keep your urine pale yellow. Wash your hands often using soap and water. If soap and water are not available, use hand fire extinguisher technician. Make sure that all people in your [...] eating and drinking to prevent dehydration. Take fnje-yuy-ewfdxew and prescription medicines only as told by [...] 06/02/2006 Document Revised: 09/24/2019 Document Reviewed: 11/10/2018 [employer] Patient Education 2020 The [employer] website. Monitored Anesthesia Care, Care After These instructions [...] before eating solid foods. General instructions Take divd-dpe-zwxqtzq and prescription medicines only as told by [...] 09/22/2016 Document Revised: 08/31/2018 Document Reviewed: 09/22/2016 [employer] Patient Education 2020 The [employer] website. Open Hernia Repair, Adult, Care After This [...] and water are not available, use hand fire extinguisher technician. ? Change your dressing as told by [...] urine clear or pale yellow. ? Take sxgo-sxc-iyeqtjs or prescription medicines. ? Eat foods that are high in fiber, such as fresh fruits and vegetables, whole grains, and beans. ? Limit foods that are high in fat and processed sugars, such as fried and sweet foods. Take hctg-wmt-ppxqzgh and prescription medicines only as told by [...] 12/20/2005 Document Revised: 05/15/2018 Document Reviewed: 11/13/2016 [employer] Patient Education 2020 [employer]. Additional Information VACCINATE! IT SAVES LIVES! Members of the community who have not yet received the COVID-19 vaccine and would like to receive it can visit one of [facility] vaccine clinics. There are many vaccine clinic locations within the [facility]. For locations and available times, please visit [email or web address] It is important to note that some COVID mobile vaccine clinics are held outdoors and may be canceled in rainy or stormy conditions. To learn more about pediatric vaccinations (ages 5-11), we invite you to visit the [facility] webpage. https://www.[email or web address]/pages/7492-Aftbs-Wfdpptispwv-Fapuueczfh-Hgmpr-Lav stions.htmlTo learn more about the COVID-19 vaccine, we invite you to visit the [facility] website for a list of frequently asked questions. [email or web address]/[email or web address]-Gjupszt-[email or web address] _Asked-Questions.pdf [facility] Patient Portal Access Instructions: Stay connected with your healthcare team and access your personal medical information anytime with the [facility] Patient Portal.If you would like a full copy of your medical records, please contact the [facility] Medical Records Department, Friday through Friday between 8a.m. and 4:30p.m. Please follow the directions below to access the portal: 1.Access the email account you provided upon registration to the [facility].2.Look for an invitation email from [facility].3.Open the email and access the invitation link: [facility]4.Fill in the required vegas to create your account. Sign into [email or web address] Asparna with your username and password that you [...] you will allow to register on the [facility] Patient Portal for access to your information. You can also access the [facility] Patient Portal on the Physiq. Simply click on Health Records under [facility] and then click on the [facility]ad logo. HOW TO SAFELY DISPOSE OF PRESCRIPTION MEDICATIONS Please use one of the following methods to safely dispose of your unused medications. 1.Use a drug disposal kit: the drug disposal pouch allows you to safely discard your old and unuseddrugs. Ask your nurse to give you one when you are dischar (more content not included)... 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 / SNOMED CT [id number] / Confirmed Fall / SNOMED CT 7594322 / Confirmed Electric shock / SNOMED CT 5816728433 / Confirmed Full dentures / SNOMED CT 722435759 / Confirmed Postprocedural hematoma of skin and subcutaneous tissue following other procedure / SNOMED CT 300674286 / Confirmed Seizure / SNOMED CT 990070078 / Confirmed TIA / SNOMED CT 444302722 / Confirmed Umbilical hernia / SNOMED CT 2670352598 / Confirmed, Active Problems (10) Acid reflux 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 History of repair of umbilical hernia (8997348282) in 2019 at 39 Years. Appendectomy (309865913). 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 Tobacco 2Risk Assessment: High Risk 07/01/2022 Tobacco [...] Signs(last 24 hrs) Last Charted Heart Rate Jxwfqbjjc01 bpm (JUL 18 08:50) Resp Rate 18 br/min (JUL 18 06:48) NBW925 mmHg (JUL 18 08:50) DBP68 mmHg (JUL 18 08:50) Measurements from flowsheet : Measurements 07/18/2022 6:48 EST Height 188 cm Admission Weight 134 kg [place] Body Weight 82.24 kg Admission Body Mass [...] Method N/A 07/18/2022 8:02 EST SN - AR - Medication MARCAINE BUPIVACAINE 0.5% 30ML SN - AR - Route of Administration Local SN - AR - Route of Administration Local SN - AR - By (Single) SN - AR - By (Single) SN - AR - By (Single) SN - AR - By (Single) 07/18/2022 7:57 EST SN - PP - Body Position Supine Standard Intra-op 07/18/2022 7:56 EST SN - PTCare - Anti-thromboembolism Ayla Sequential Compression Device (SCD) 07/18/2022 7:49 EST SN - CAt - Case Attendee SN - CAt - Case Attendee SN - CAt - Case Attendee SN - CAt - Case Attendee SN - CAt - Role Performed ACQUISITIONS EDITOR SN - CAt - Role Performed Kiln Loader 1 07/18/2022 7:30 EST Primary Pain Intensity [...] Surgeon SN - CAt - Role Performed Poultry Inseminator 1 SN - CAt - Role Performed Scrub 1 07/18/2022 7:12 EST Infectious Disease Symptoms Patient states no symptoms Safety Brochure Information Reviewed Unable to complete [facility] Mcneal Video Viewed No Teaching Evaluation Needs practice/supervision Admission Note-Nursing Same Day Patient History (Modified) 07/18/2022 7:10 EST Lactated Ringers Injection Begin Bag 1,000 mL mL 07/18/2022 6:48 EST Height 188 cm Admission Weight 134 kg [place] Body Weight 82.24 kg Admission Body Mass [...] no difficulties Skin Temperature Warm Skin Description Gahanna, Dry Skin Integrity Intact Mucous Membrane Color Gahanna IV Present Present Continuous IV Infusions LR [...] Cooperative Orientation Oriented x 4 Allergies Yes Counter Stitcher On Yes Consent Form Signed Yes Patient [...] Void 07/18/2022 7:01 . Assessment and Plan [place] Society of Anesthesiologists (ASA) physical status classification: Class III. Anesthetic Preoperative Plan Premedication: intravenous. Anesthetic technique: General. Induction: intravenously. Maintenance airway: Oral endotracheal tube. Postoperative pain management: Per surgeon. Risks discussed: nausea, vomiting, sore throat. Informed consent: signed by patient. Digitally Signed by SOFÍA OROZCO on 07/18/2022 09:03 AM [facility]01-30-2023 Evaluation + Plan note Future Appointments Diagnostic Tests Pending * [facility] Send out (Blood Specimens) 07/15/22 Future Scheduled Tests Laboratory* Basic Metabolic Panel 11/23/21 * Carbamazepine Level 11/23/21 * Complete Metabolic Panel 11/23/21 [facility] 01-30-2023 Hospital Discharge instructions Patient Education [...] told. 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 [address] [place] [address]. All rights reserved. This information is not intended as a substitute for professional medical care. Always follow yourhealthcare professional's instructions. Follow Up Care 07/15/2022 00:22:57 [facility] Address: When:2-4 days [facility] 01-30-2023 Note Discharge Instructions Thank you for allowing [facility] to assist you with your healthcare needs. [...] told. 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 [address] [place] [address]. All rights reserved. This information is not intended as a substitute for professional medical care. Always follow yourhealthcare professional's instructions. Additional Information VACCINATE! IT SAVES LIVES! Members of the community who have not yet received the COVID-19 vaccine and would like to receive it can visit one of [facility] vaccine clinics. There are many vaccine clinic locations within the [facility]. For locations and available times, please visit [email or web address]. It is important to note that some COVID mobile vaccine clinics are held outdoors and may be canceled in rainy orstormy conditions. To learn more about pediatric vaccinations (ages 5-11), we invite you to visit the [facility] webpage. https://www.[email or web address].org/pages/5212-Rjewd-Xgsjonfclwh-Vkcjlywsuk-Xhgpw-Xzj stions.htmlTo learn more about the COVID-19 vaccine, we invite you to visit the [employer] website for a list of frequently asked questions. [email or web address] _Asked-Questions.pdf [facility] Patient Portal Access Instructions: Stay connected with your healthcare team and access your personal medical information anytime with the [facility] Patient Portal. If you would like a full copy of your medical records please contact the [facility] Medical Records Department Friday through Friday between 8a.m. and 4:30p.m. Please follow the directions below to access the portal: 1.Access the email account you provided upon registration to the [facility].2.Look for an invitation email from [facility].3.Open the email and access the invitation link: Accept [facility]itation to [facility]4.Fill in the required vegas to create your account. Sign into [email or web address] Asparna with your username and password that you [...] you will allow to register on the [facility] Patient Portal for access to your information. You can also access the [facility] Patient Portal on the TreSensa randal. Simply click on Health Records under [facility] and then click on the [facility]edad logo. HOW TO SAFELY DISPOSE OF PRESCRIPTION [...] Call your local pharmacy or go to http://bit.FreeBorders/5B1Je6l to find one close to you.3.Make use of household items: Use cat litter or old coffee grounds to dispose medications if other options arenot available. Mix your drugs with these household products, seal them in an airtight container andthrow it into the garbage. Call [facility]: [phone] to be sure your drugs can be [...] aware that I should contact my doctor. 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 The [place] Heart Association recommends the following guidelines for [...] face You have problems speaking or seeing 8422-1894 [employer]. [address] [place] [address]. All rights reserved. This information is not [...] or as directed by your healthcare provider 4550-9254 [employer]. [address] [place] [address], [place] [address]. All rights reserved. This information is not [...] foods again, start with small amounts of nrpa-qv-pqcphp, low- fat foods. These include apple sauce, [...] increase stomach acid. Don't use aspirin or dtqd-qlz-teyyokq pain and fever medicines, if possible. This includes nonsteroidal anti-inflammatory drugs (NSAIDs). Lose excess weight. Finish eating at least 2 hours before you go to bed or lie down. Raise the head of your bed. 4317-9835 [employer]. [address] [place] [address]. All rights reserved. This information is not [...] the referral doctor. With:AARON DUQUE Address: [address] [facility] [address] [facility] [place] [address]- [phone] Business (1) When:2-4 days Comments:Schedule an appointment for close follow-up.Continue Tylenol for pain as needed.Use Ogallah as prescribed for severe pain as needed.Return to the ED if symptoms worsen. [facility] 01-13-2023 Note Discharge Instructions Thank you for allowing [facility] to assist you with your healthcare needs. [...] Continue Tylenol for pain as needed. Use Ogallah as prescribed for severe pain as needed. Return to the ED if symptoms worsen. Where: [address] [facility] [address] [facility] [place] [address]- [phone] Business (1) Allergies Keflex Keppra (Rash) Tape, Paper (Rash) morphine (Rash) naproxen Medications Please ask your primary doctor or pharmacist before taking any other medication not listed, including over the counter drugs, herbal medications, vitamins and or supplements as they may interact withyour home medications. What How Much When Why Instructions Last Dose New acetaminophen-hydrocodone (Ogallah 325- 5 mg oral tablet) 1 tab(s) [...] blood pressure monitors at most pharmacies. The [place] Heart Association recommends the following guidelines for [...] face You have problems speaking or seeing 4937-2620 [employer]. [address] [place] [address]. All rights reserved. This information is not [...] or as directed by your healthcare provider 7436-2245 [employer]. [address] [place] [address]. All rights reserved. This information is not [...] foods again, start with small amounts of ibho-ao-dllivk, low- fat foods. These include apple sauce, [...] increase stomach acid. Don't use aspirin or ncqv-fhd-ifxdwdo pain and fever medicines, if possible. This includes nonsteroidal anti-inflammatory drugs (NSAIDs). Lose excess weight. Finish eating at least 2 hours before you go to bed or lie down. Raise the head of your bed. 4623-4261 [employer]. [address] [place] [address]. All rights reserved. This information is not intended as a substitute for professional medical care. Always follow yourhealthcare professional's instructions. Additional Information VACCINATE! IT SAVES LIVES! Members of the community who have not yet received the COVID-19 vaccine and would like to receive it can visit one of [facility] vaccine clinics. There are many vaccine clinic locations within the [facility]. For locations and available times, please visit [email or web address]. It is important to note that some COVID mobile vaccine clinics are held outdoors and may be canceled in rainy orstormy conditions. To learn more about pediatric vaccinations (ages 5-11), we invite you to visit the [facility] webpage. https://www.[email or web address].org/pages/3063-Ttqly-Ukokiblcrqf-Spbkicogyc-Ykoru-Iwx stions.htmlTo learn more about the COVID-19 vaccine, we invite you to visit the [employer] website for a list of frequently asked questions. [email or web address]/[email or web address]-Dsomvcd-[email or web address] _Asked-Questions.pdf [facility] Patient Portal Access Instructions: Stay connected with your healthcare team and access your personal medical information anytime with the [facility] Patient Portal. If you would like a full copy of your medical records please contact the [facility] Medical Records Department Friday through Friday between 8a.m. and 4:30p.m. Please follow the directions below to access the portal: 1.Access the email account you provided upon registration to the hospital.2.Look for an invitation email from [facility].3.Open the email and access the invitation link: Accept Invitation to [facility])4.Fill in the required vegas to create your account. Sign into [email or web address] with your username and password that you [...] you will allow to register on the [employer] Patient Portal for access to your information. You can also access the [employer] [facility] Patient Portal on the TreSensa randal. Simply click on Health Records under [facility] and then click on the [employer] logo. HOW TO SAFELY DISPOSE OF PRESCRIPTION [...] Call your local pharmacy or go to http://Ingageapp.FreeBorders/1L7Qe5a to find one close to you.3.Make use of household items: Use cat litter or old coffee grounds to dispose medications if other options arenot available. Mix your drugs with these household products, seal them in an airtight container andthrow it into the garbage. Call [facility]: [phone] to be sure your drugs can be [...] aware that I should contact my doctor. 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 Signature: Date/Time: Relationship to Patient: Witness Name/Signature: Date/Time: [facility]01-12-2023 Note ORIGINAL EXAMINATION: CT OF THE [...] Date: 06/27/2022 11:27:05 PM Ordering Provider: [facility]01-12-2023 Note ORIGINAL EXAMINATION: CT OF THE [...] Sign Date: 06/27/2022 11:27:05 PM Ordering Provider: [facility]01-05-2023 Hospital Discharge instructions* Discharge Instructions* ERIC Mandel - 06/20/2022 12:31 AM EST Please take medication as prescribed Please follow up with your Physicians as instructed in this discharge paperwork Thank you for choosing [facility] I appreciate your patience Please return to the emergency department if your symptoms worsen, or new symptoms develop as discussed documented in this [facility]01-04-2023 Emergency department Note* ERIC Mandel - 06/19/2022 7:06 PM EST [facility] ED EMERGENCY DEPARTMENT ENCOUNTER Pt Name: [...] patient come from an ECF, SNF, Rehab, Care Home or other Congregate setting: no (If yes [...] HISTORY Past Medical History: Diagnosis Date Seizures ([facility]) SURGICAL HISTORY Past Surgical History: [...] upper and lower extremities bilateral with normal editorial project manager strength, normal plantar flexion and dorsiflexion. Skin: Findings: No erythema or rash. Neurological: General: No focal deficit present. Mental Status: He is oriented to person, place, and time. Comments: Cranial Nerves 2-12 are intact without without any neurological deficits Normal gkebse-qe-twihdz, rllwqd-yh-mmsu, alternating hands, heel to tong test bilateral [...] BEDSIDE ULTRASOUND Performed by ED Physician or RANDAL: None EMERGENCY DEPARTMENT COURSE and DIFFERENTIAL DIAGNOSIS/MDM: [...] I Kyree Christie PA-C am the primary RANDAL clinician of record Comment: Please note this [...] Discharge 06/20/2022 12:30:39 AM PATIENT REFERRED TO: [facility] [address] [facility] [address] Schedule an appointment as soon as possible for a visit in 2 days [facility] [address] [facility] [address] Schedule an appointment as soon as possible for a visit in 1 week [facility] [address] [facility] [address] Go to If symptoms worsen DISCHARGE MEDICATIONS: New Prescriptions No medications on file (Please note: Portions of this note were completed with a voice recognition program. Efforts were made to edit thedictations but occasionally words and phrases are mis-transcribed.) Form [id number].J.5-cn ERIC Mandel (electronically signed) Emergency Medicine Provider ERIC Mandel 06/20/2233 ERIC Mandel 06/20/22 0038 documented in this [facility]01-04-2023 Physician Emergency department Note* ERIC Mandel - 06/19/2022 7:06 PM EST [facility] ED EMERGENCY DEPARTMENT ENCOUNTER Pt Name: [...] patient come from an ECF, SNF, Rehab, Care Home or other Congregate setting: no (If yes [...] HISTORY Past Medical History: Diagnosis Date Seizures ([facility]) SURGICAL HISTORY Past Surgical History: [...] upper and lower extremities bilateral with normal editorial project manager strength, normal plantar flexion and dorsiflexion. Skin: Findings: No erythema or rash. Neurological: General: No focal deficit present. Mental Status: He is oriented to person, place, and time. Comments: Cranial Nerves 2-12 are intact without without any neurological deficits Normal llrsub-zp-anqjdg, rxazdy-bw-pptc, alternating hands, heel to tong test bilateral [...] BEDSIDE ULTRASOUND Performed by ED Physician or RANDAL: None EMERGENCY DEPARTMENT COURSE and DIFFERENTIAL DIAGNOSIS/MDM: [...] I Kyree Christie PA-C am the primary RANDAL clinician of record Comment: Please note this [...] none Procedures FINAL IMPRESSION 1. Seizure (CMS/HCC) ([facility]) DISPOSITION/PLAN DISPOSITION Discharge 06/20/2022 12:30:39 AM PATIENT REFERRED TO: [facility] [address] [facility] [address] Schedule an appointment as soon as possible for a visit in 2 days [facility] [address] [facility] [address] Schedule an appointment as soon as possible for a visit in 1 week [facility] ED [address] [facility] [address] Go to If symptoms worsen DISCHARGE MEDICATIONS: New Prescriptions No medications on file (Please note: Portions of this note were completed with a voice recognition program. Efforts were made to edit thedictations but occasionally words and phrases are mis-transcribed.) Form [id number].J.5-cn ERIC Mandel (electronically signed) Emergency Medicine Provider ERIC Mandel 06/20/22 0034 ERIC Mandel 06/20/22 0038 [facility] [employer] Phone: [phone]) 711-903012-17-2022 Hospital Discharge instructions Patient Education 05/31/2022 23:54:43 [...] or as directed by your healthcare provider 5083-0119 [employer]. [address] [place] [address]. All rights reserved. This information is not [...] blue color of the hand or foot 5466-2078 [employer]. [address] [place] [address], [place] [address]. All rights reserved. This information is not intended as a substitute for professional medical care. Always follow yourhealthcare professional's instructions. Follow Up Care 05/31/2022 21:06:21 With:AARON DUQUE Address: [address] [place] [phone] Business (1) When:3-7 days Comments:Schedule appointment for follow-up.Use Tylenol or Motrin for pain as needed.Use Ogallah as prescribedfor severe pain as needed.Return to the ED if symptoms worsen. [facility] 12-17-2022 Note Discharge Instructions Thank you for allowing [facility] to assist you with your healthcare needs. [...] or Motrin for pain as needed. Use Ogallah as prescribed for severe pain as needed. Return to the ED if symptoms worsen. Where: [address] [facility] [address] [facility] [place] [address]- [phone] Business (1) Allergies Keflex Keppra (Rash) Tape, Paper (Rash) morphine (Rash) naproxen Medications Please ask your primary doctor or pharmacist before taking any other medication not listed, including over the counter drugs, herbal medications, vitamins and or supplements as they may interact withyour home medications. What How Much When Why Instructions Last Dose New acetaminophen-hydrocodone (Ogallah 325- 5 mg oral tablet) 1 tab(s) [...] or as directed by your healthcare provider [phone] [employer]. [address] [place] [address]. All rights reserved. This information is not [...] blue color of the hand or foot 5262-7120 [employer]. [address] [place] [address]. All rights reserved. This information is not intended as a substitute for professional medical care. Always follow yourhealthcare professional's instructions. Additional Information VACCINATE! IT SAVES LIVES! Members of the community who have not yet received the COVID-19 vaccine and would like to receive it can visit one of [facility] vaccine clinics. There are many vaccine clinic locations within the [facility]. For locations and available times, please visit www.[email or web address]. It is important to note that some COVID mobile vaccine clinics are held outdoors and may be canceled in rainy orstormy conditions. To learn more about pediatric vaccinations (ages 5-11), we invite you to visit the [facility] webpage. https://www.[employer].org/pages/7938-Idrom-Tzxmpjphuwf-Vfazxhyblm-Yphxt-Lia stions.htmlTo learn more about the COVID-19 vaccine, we invite you to visit the [facility] website for a list of frequently asked questions. https://[facility].org/assets/Jmrxdrug-ser-Yelguxam/kgrom-Qzuzhwx-Quouruxrvo _Asked-Questions.pdf [facility]) Patient Portal Access Instructions: Stay connected with your healthcare team and access your personal medical information anytime with the [facility] ([employer]) Patient Portal. If you would like a full copy of your medical records please contact the [facility] Medical Records Department Friday through Friday between 8a.m. and 4:30p.m. Please follow the directions below to access the portal: 1.Access the email account you provided upon registration to the hospital.2.Look for an invitation email from [facility].3.Open the email and access the invitation link: Accept Invitation to [facility] ([facility])4.Fill in the required vegas to create your account. Sign into [email or web address] with your username and password that you [...] you will allow to register on the [facility] ([employer]) Patient Portal for access to your information. You can also access the [facility]) Patient Portal on the Physiq. Simply click on Health Records under [employer] and then click on the [facility] logo. HOW TO SAFELY DISPOSE OF PRESCRIPTION [...] Call your local pharmacy or go to http://Ingageapp.FreeBorders/3U0Ur9j to find one close to you.3.Make use of household items: Use cat litter or old coffee grounds to dispose medications if other options arenot available. Mix your drugs with these household products, seal them in an airtight container andthrow it into the garbage. Call [facility]: [phone] to be sure your drugs can be [...] aware that I should contact my doctor. 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 heating worker a hot shower or usea vaporizer. Be [...] mouth Spotted, red, or very sore throat [phone] [employer] [place] [address]. All rights reserved. This information is not intended as a substitute for professional medical care. Always follow yourhealthcare professional's instructions. Follow Up Care 05/27/2022 17:56:54 With:Go to emergency room if symptoms worsen Address:Unknown When:2-4 days With:Call Physician Referral Address:Unknown When:2-4 days [facility] 12-12-2022 Note ORIGINAL EXAMINATION: ONE XRAY [...] resident's findings and interpretation. Interpreted by: Rochelle Hnikle MD Preliminary Report By: Isidro Duque Electronically signed By Rochelle Hinkle MD Dictated Date: 05/27/2022 7:09:36 PM Prelim Date: 05/27/2022 7:10:37 PM Sign Date: 05/27/2022 7:25:51 PM Ordering Provider: LEORA KHAN [facility]12-12-2022 Note Discharge Instructions Thank you for allowing [facility] to assist you with your healthcare needs. [...] humidified air to open blocked nasal passages. heating worker a hot shower or usea vaporizer. Be [...] mouth Spotted, red, or very sore throat [phone] [employer]. [address] [place] [address], [place] [address]. All rights reserved. This information is not intended as a substitute for professional medical care. Always follow yourhealthcare professional's instructions. Additional Information VACCINATE! IT SAVES LIVES! Members of the community who have not yet received the COVID-19 vaccine and would like to receive it can visit one of [facility] vaccine clinics. There are many vaccine clinic locations within the [facility]. For locations and available times, please visit www.[email or web address]. It is important to note that some COVID mobile vaccine clinics are held outdoors and may be canceled in rainy orstormy conditions. To learn more about pediatric vaccinations (ages 5-11), we invite you to visit the [facility] webpage. https://www.[facility].org/pages/1795-Npddm-Kslnhncocsj-Bxawdyeqec-Hcpvt-Ipl stions.htmlTo learn more about the COVID-19 vaccine, we invite you to visit the [facility] website for a list of frequently asked questions. https://myBarrister/assets/Gpjasnom-kve-Ojtmpxdo/sesry-Bzmjgyl-Abarbdxera _Asked-Questions.pdf [facility] Patient Portal Access Instructions: Stay connected with your healthcare team and access your personal medical information anytime with the [facility] ([employer]) Patient Portal. If you would like a full copy of your medical records please contact the [facility] Medical Records Department Friday through Friday between 8a.m. and 4:30p.m. Please follow the directions below to access the portal: 1.Access the email account you provided upon registration to the [facility].2.Look for an invitation email from [facility].3.Open the email and access the invitation link: Accept Invitation to [facility] ([employer])4.Fill in the required vegas to create your account. Sign into [email or web address] with your username and password that you [...] you will allow to register on the [facility] ([facility]) Patient Portal for access to your information. You can also access the [facility] ([facility]) Patient Portal on the TreS[employer] randal. Simply click on Health Records under [facility] and then click on the [employer] logo. HOW TO SAFELY DISPOSE OF PRESCRIPTION [...] Call your local pharmacy or go to http://Ingageapp.FreeBorders/8K1Zp4w to find one close to you.3.Make use of household items: Use cat litter or old coffee grounds to dispose medications if other options arenot available. Mix your drugs with these household products, seal them in an airtight container andthrow it into the garbage. Call [facility]: [phone] to be sure your drugs can be [...] aware that I should contact my doctor. 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 Signature: Date/Time: Relationship to Patient: Witness Name/Signature: Date/Time: [facility]12-12-2022 Note ORIGINAL EXAMINATION: ONE XRAY VIEW [...] Date: 05/27/2022 7:25:51 PM Ordering Provider: LEORA [facility]09-30-2022 Hospital Discharge instructions Patient Education 03/15/2022 [...] the ears or bruising around the eyes [phone] [employer] [place] [address]. All rights reserved. This information is not intended as a substitute for professional medical care. Always follow yourhealthcare professional's instructions. Follow Up Care 03/14/2022 22:45:58 With:RHONDA ERICKSON Address: [address] [place] [address]- [phone] Business (1) When:2-4 days With:Call Physician Referral Address:Unknown When:2-4 days [facility] 09-30-2022 Note Discharge Instructions Thank you for allowing [facility] to assist you with your healthcare needs. The following is importantdischarge information regarding your hospital visit. Diagnosis from Today's Visit Headache What to Do Next Instructions from Your Care Team No qualifying data available. Post Acute Orders No qualifying data available. You Need to Schedule the Following Appointments Follow Up with RHONDA ERICKSON When Within 2-4 days Where: [address] [place] [place] [address] [phone] Business (1) Follow Up with Call Physician [...] the ears or bruising around the eyes 3979-5059 [employer]. [address] [place] [address], [place] [address]. All rights reserved. This information is not intended as a substitute for professional medical care. Always follow yourhealthcare professional's instructions. Additional Information VACCINATE! IT SAVES LIVES! Members of the community who have not yet received the COVID-19 vaccine and would like to receive it can visit one of [facility] vaccine clinics. There are many vaccine clinic locations within the [facility]. For locations and available times, please visit www.[email or web address]. It is important to note that some COVID mobile vaccine clinics are held outdoors and may be canceled in rainy orstormy conditions. To learn more about pediatric vaccinations (ages 5-11), we invite you to visit the [facility] webpage. https://www.[facility].org/pages/7577-Zpgzq-Djejmqutsbz-Mwwzghjsbl-Epwso-Crr stions.htmlTo learn more about the COVID-19 vaccine, we invite you to visit the [facility] website for a list of frequently asked questions. https://myBarrister/assets/Igmzvxqg-hfq-Xmarjtqv/tvbkv-Vzukcje-Cqmiupgbvc _Asked-Questions.pdf [facility] ([employer]) Patient Portal Access Instructions: Stay connected with your healthcare team and access your personal medical information anytime with the [facility] (moKredit) Patient Portal. If you would like a full copy of your medical records please contact the [facility] Medical Records Department Friday through Friday between 8a.m. and 4:30p.m. Please follow the directions below to access the portal: 1.Access the email account you provided upon registration to the hospital.2.Look for an invitation email from [facility].3.Open the email and access the invitation link: Accept Invitation to [facility])4.Fill in the required vegas to create your account. Sign into [email or web address] with your username and password that you [...] you will allow to register on the [facility] (mo[employer]redit) Patient Portal for access to your information. You can also access the [facility] ([facility]) Patient Portal on the TreSensa randal. Simply click on Health Records under [facility] and then click on the [facility] logo. HOW TO SAFELY DISPOSE OF PRESCRIPTION [...] Call your local pharmacy or go to http://Ingageapp.FreeBorders/8R7Og7k to find one close to you.3.Make use of household items: Use cat litter or old coffee grounds to dispose medications if other options arenot available. Mix your drugs with these household products, seal them in an airtight container andthrow it into the garbage. Call [facility]: [phone] to be sure your drugs can be [...] aware that I should contact my doctor. 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 Signature: Date/Time: Relationship to Patient: Witness Name/Signature: Date/Time: [facility]09-29-2022 Note ORIGINAL EXAMINATION: CT OF THE [...] 03/14/2022 11:55:41 PM Ordering Provider: JORGITO CANNON [facility]09-29-2022 Note ORIGINAL EXAMINATION: CT OF THE [...] Sign Date: 03/14/2022 11:55:41 PM Ordering Provider: [facility]09-23-2022 Hospital Discharge instructions* Discharge Instructions* Joseluis Maier DO - 03/08/2022 1:53 AM EDT Please return if you develop slurred speech, change in vision, difficulty swallowing or talking. Please return if develop weakness, numbness or loss of sensation in any of your extremities. Please take Tylenol, ibuprofen as needed for pain control. * Attachments The following attachments cannot be sent through Care Everywhere. * Head Injury: Closed: General Info (Somali) documented in this [facility] Work Phone: [phone] History of Present illness Narrative* Ibrahima Schaefer [...] repair of his recurrent ventral hernia at [facility] performed by Dr. Aaron Duque. The [...] any other maneuvers. The patient presented to [facility] emergency department on January 01 complaining [...] entered by the nurse and reviewed by co Nursing Notes: Charlie Mera RN 01/03/2022 11:28 [...] My findings have been communicated to Dr. Leydi Martin MD via shared medical record. This note will be forwarded to Dr. Leydi Martin MD. Return to Clinic: The patient [...] applicable. [facility] RN [facility]* Charlie Mera RN - [...] None Charlie Mera RN [facility] Instructions* Patient Instructions* Charlie Mera RN - 01/03/2022 10:45 AM EDT The following instructions are important for you related to your office visit today with the [facility] General Surgeons. Instructions After HEMATOMA/SEROMA ASPIRATION [...] you should contact our office immediately @ [phone] and ask to be transferred to the General Surgery department. [facility] Hospital Discharge instructions Patient Education 12/21/2021 [...] blue color of the hand or foot 3734-0518 [employer]. [address] [place] [address], [place] [address]. All rights reserved. This information is not intended as a substitute for professional medical care. Always follow yourhealthcare professional's instructions. Follow Up Care 12/21/2021 20:37:47 With:AARON DUQUE MD, Surgery Address: [address] [facility] [address] [place] [address] [phone] When:2-4 days [facility] 07-08-2022 Emergency department Discharge summary Discharge Instructions Thank you for allowing [facility] to assist you with your healthcare needs. The following is importantdischarge information regarding your hospital visit. Diagnosis from Today's Visit Hematoma Abdominal pain What to Do Next Instructions from Your Care Team No qualifying data available. Post Acute Orders No qualifying data available. You Need to Schedule the Following Appointments Follow Up with AARON DUQUE MD, Surgery When Within 2-4 days Where: [address] [facility] [address] [place] [address] [phone] Allergies Keflex Keppra (Rash) Tape, Paper (Rash) morphine (Rash) naproxen Medications Please ask your primary doctor or pharmacist before taking any other medication not listed, including over the counter drugs, herbal medications, vitamins and or supplements as they may interact withyour home medications. What How Much When Why Instructions Last Dose New acetaminophen-hydrocodone (Ogallah 325- 5 mg oral tablet) 1 tab(s) [...] blue color of the hand or foot 4162-4119 [employer]. [address] [place] [address], [place] [address]. All rights reserved. This information is not intended as a substitute for professional medical care. Always follow yourhealthcare professional's instructions. Additional Information VACCINATE! IT SAVES LIVES! Members of the community who have not yet received the COVID-19 vaccine and would like to receive it can visit one of [facility] vaccine clinics. There are many vaccine clinic locations within the [facility]. For locations and available times, please visit www.[email or web address].org. It is important to note that some COVID mobile vaccine clinics are held outdoors and may be canceled in rainy orstormy conditions. To learn more about pediatric vaccinations (ages 5-11), we invite you to visit the [facility] webpage. https://www.[employer]Red [employer]us.org/pages/1750-Jawbp-Kgvqrrbkifx-Ywmcjpholt-Pmkqn-Xoj stions.htmlTo learn more about the COVID-19 vaccine, we invite you to visit the [facility] website for a list of frequently asked questions. https://[facility].org/assets/Uoanbxkx-njg-Smxpcehj/olbjj-Xoqchsh-Yldjbjnjzz _Asked-Questions.pdf [facility] Patient Portal Access Instructions: Stay connected with your healthcare team and access your personal medical information anytime with the [facility] ([employer]) Patient Portal. If you would like a full copy of your medical records please contact the [facility] Medical Records Department Friday through Friday between 8a.m. and 4:30p.m. Please follow the directions below to access the portal: 1.Access the email account you provided upon registration to the [facility].2.Look for an invitation email from [facility].3.Open the email and access the invitation link: Accept Invitation to [facility] ([employer])4.Fill in the required vegas to create your account. Sign into [email or web address] with your username and password that you [...] you will allow to register on the [employer] Patient Portal for access to your information. You can also access the [facility] Patient Portal on the TreSensa randal. Simply click on Health Records under [facility] and then click on the [employer] logo. HOW TO SAFELY DISPOSE OF PRESCRIPTION [...] Call your local pharmacy or go to http://Ingageapp.FreeBorders/6N2Mv0h to find one close to you.3.Make use of household items: Use cat litter or old coffee grounds to dispose medications if other options arenot available. Mix your drugs with these household products, seal them in an airtight container andthrow it into the garbage. Call [facility]: [phone] to be sure your drugs can be [...] aware that I should contact my doctor. 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 Signature: Date/Time: Relationship to Patient: Witness Name/Signature: Date/Time: [facility]07-08-2022 Note ORIGINAL EXAMINATION: CT OF THE [...] by: Jorgito Hua DO Preliminary Report By: Laura Mabry Electronically signed By Jorgito Hua DO Dictated Date: 12/21/2021 9:37:41 PM Prelim Date: 12/21/2021 9:45:11 PM Sign Date: 12/21/2021 9:56:22 PM Ordering Provider: [facility]07-08-2022 Note ORIGINAL EXAMINATION: CT OF THE ABDOMEN [...] by: Jorgito Hua DO Preliminary Report By: Laura Mabry Electronically signed By Jorgito Hua DO [...] blue color of the hand or foot 3759-1612 [employer]. [address] [place] [address]. All rights reserved. This information is not intended as a substitute for professional medical care. Always follow yourhealthcare professional's instructions. Follow Up Care 11/30/2021 18:59:24 With:AARON DUQUE Address: [address] [place] [address]- [phone] Business (1) When:2-4 days Comments:Schedule appointment for follow-up.Ice or cool compresses to the swollen, painful area.Use Tylenol,Advil or Aleve for pain as needed.Use Ogallah as prescribed for severe pain as needed.Return to the ED if symptoms worsen [facility] 06-10-2022 Evaluation + Plan note Future Scheduled Tests Laboratory* Basic Metabolic Panel 11/23/21 * Carbamazepine Level 11/23/21 * Complete Metabolic Panel 11/23/21 [facility] 06-10-2022 Evaluation + Plan note Future Appointments Future Scheduled Tests Laboratory* Basic Metabolic Panel 11/23/21 * Carbamazepine Level 11/23/21 * Complete Metabolic Panel 11/23/21 [facility] 06-10-2022 Evaluation + Plan note Future Scheduled Tests Laboratory* Basic Metabolic Panel 11/23/21 * Carbamazepine Level 11/23/21 * Complete Metabolic Panel 11/23/21 Radiology* IR Drainage Peritoneal Abscess Guide 08/20/22 [facility] 04-23-2022 Hospital Discharge instructions Patient Education [...] the waistline) or spreads to the back 8754-6574 [employer]. [address] [place] [address], [place] [address]. All rights reserved. This information is not intended as a substitute for professional medical care. Always follow yourhealthcare professional's instructions. Follow Up Care 10/06/2021 14:45:39 With:AARON DUQUE MD, Surgery Address: [address] [facility] [address] [place] [address]- [phone] When:2-4 days [facility] Discharge summary Author Guevara Choi [facility] Note Date/Time December 07, 2024 12:1 3am [facility] Medical Records Department [address] [facility] [address] [place] [address] Emergency Department Summary 12/07/24 MR#: [id number] Acct: [id number] Name: PATRICK KOROMA Rep #:[id number] : 1980 44 From: Guevara Choi MD PCP: ERIC Anaya Status:REG ER Location: ED HPI History of Present Illness Chief Complaint: Upper Extremity Injury Informant: patient Narrative Narrative: During tear down of a car level traction at the [facility], patient states he smashed his right thumb between 2 metal poles on accident. Lhrbv-[id number]. [facility] Medical History Seroma after procedure Influenza due [...] abnormality of the right hand. Reading Location: [id number] Discharge Plan Triage Chief Complaint: Upper Extremity Injury ED Provider: Guevara Choi Dx/Rx/DC Orders Clinical Impression: Contusion of right thumb with damage to nail, initial encounter Instructions: ED Finger or Toe Contusion Prescriptions: No Action NK Primary Care Provider: Viola Starkey NP Referrals: Viola Starkey NP, [facility] [Primary Care Provider] - 10-14 Days if not better Print Language: Somali Disposition Disposition: Home, Self Care What to do if you have Problems For any increased pain, shortness of breath, bleeding, nausea or vomiting, chestpain, or any unexpected problems, contact your Primary Care Provider. Call [facility] ([phone]) or report to the closest Emergency Room. Call 911 if necessary. 12/07/24 0013 <Electronically signed by Guevara Choi MD> Cosigner Signature (if applicable): CC: [facility] Viola Starkey ~ Signed [facility] Work Phone: Evaluation + Plan note No data available for this section [facility] Evaluation + Plan note Future Appointments Appointment Date:11/01/2021 02:10:00 PM Scheduled Provider:AARON DUQUE MD Location:Gen Surg BA Appointment Type:GS OV Check after Test [facility] Evaluation + Plan note Future Appointments [facility] [facility] Evaluation + Plan note Future Appointments Appointment Date:12/06/2021 01:40:00 PM Scheduled Provider:AARON DUQUE MD Location:Gen Surg [facility] Appointment Type:GS OV Post Op Appointment Date:02/22/2022 10:30:00 AM Scheduled Provider:APPLE CONNORS Location:[facility] Appointment Type:PC Wellness Annual Future Scheduled Tests Laboratory* Basic Metabolic Panel 11/23/21 * Carbamazepine Level 11/23/21 * Complete Metabolic Panel 11/23/21 [facility] Evaluation + Plan note Future Appointments Appointment Date:12/27/2021 01:20:00 PM Scheduled Provider:AARON DUQUE MD Location:[facility] Appointment Type:GS OV Follow Up Appointment Date:02/22/2022 10:30:00 AM Scheduled Provider:APPLE CONNORS Location:[facility] Appointment Type:PC Wellness Annual Future Scheduled Tests Laboratory* Basic Metabolic Panel 11/23/21 * Carbamazepine Level 11/23/21 * Complete Metabolic Panel 11/23/21 [facility] Evaluation + Plan note Future Appointments Appointment Date:07/01/2022 03:20:00 PM Scheduled Provider:AARON DUQUE MD Location:Gen Surg [facility] Appointment Type:GS OV Future Scheduled Tests Laboratory* Basic Metabolic Panel 11/23/21 * Carbamazepine Level 11/23/21 * Complete Metabolic Panel 11/23/21 [facility] Evaluation + Plan note Future Appointments Appointment Date:07/25/2022 10:00:00 AM Scheduled Provider:AVANI CANTOR Location:[facility] Appointment Type:GS OV Post Op Future Scheduled Tests Laboratory* Basic Metabolic Panel 11/23/21 * Carbamazepine Level 11/23/21 * Complete Metabolic Panel 11/23/21 [facility] Evaluation noteNo assessment information available [facility] Work Phone: Evaluation note* Diagnosis Hematoma- Primary Contusion of unspecified site Incisional hernia, without obstruction or gangrene Incisional hernia without mention of obstruction or gangrene [facility] Diagnosis Closed head injury, initial encounter- Primary documented in this encounter [facility] Work Phone: Evaluation note* Diagnosis Injury of right wrist, initial encounter- Primary documented in this encounter [facility] Work Phone: evaluation note* Diagnosis Acute pain of right shoulder- Primary Strain of right shoulder, initial encounter [facility] Work Phone: evaluation note* Diagnosis Onset Date Resolution Status Infected hernioplasty mesh a [facility] Work Phone: Evaluation note* Diagnosis Left lower quadrant abdominal pain- Primary documented in this encounter [facility] note* Diagnosis Preoperative examination- Primary Preoperative examination, unspecified Infected hernioplasty mesh, sequela documented in this encounter [facility] note* Diagnosis Abdominal pain, unspecified abdominal location- Primary Preoperative examination Preoperative examination, unspecified Infected hernioplasty mesh, sequela documented in this encounter [facility] note* Diagnosis Pre-op evaluation- Primary Preoperative examination, unspecified Post traumatic seizure disorder (HCC) Post traumatic seizures Morbid obesity (HCC) Morbid obesity Tobacco use Tobacco use disorder Preoperative examination Preoperative examination, unspecified Infected hernioplasty mesh, sequela documented in this encounter [facility] note* Diagnosis Left lower quadrant abdominal pain- Primary documented in this encounter [facility] note* Diagnosis Left lateral abdominal pain- Primary Abdominal pain, unspecified site documented in this encounter [facility] note* Diagnosis Seizure (CMS/HCC) (HCC)- Primary Other convulsions documented in this encounter [facility] note* Diagnosis Periumbilical abdominal pain- Primary Abdominal pain, periumbilic History of abdominal hernia documented in this encounter [facility] Work Phone: Evaluation note* Diagnosis History of abdominal hernia documented in this encounter [facility] Work Phone: Hospital Discharge instructions No data available for this section [facility] Hospital Discharge instructions* Attachments The following attachments cannot be sent through Care Everywhere. * RICE: General Info (Somali) [facility] Work Phone: Hospital Discharge instructions* Attachments The following attachments cannot be sent through Care Everywhere. * Shoulder Sprain (Somali) [facility] Work Phone: Hospital Discharge instructions Additional Instructions Please keep your appointment next week with [facility] [place] [facility] Work Phone: Hospital Discharge instructions Additional Instructions Your x-ray right shoulder negative. Your clinical exam concerns for biceps tendinitis of the shoulder region. Continue ibuprofen. Finish prednisone as prescribed.[facility] Work Phone: Hospital Discharge instructions Additional Instructions You may wear the sling for comfort but exercise your right shoulder at least 3 times a day to prevent frozen shoulder. Wcpd-uls-qescqdu medications as needed for pain. Follow-up with orthopedics if not improving.[facility] Work Phone: Hospital Discharge instructionsAdditional Instructions Call the [facility]. Get the name and office number of the general surgeons there that are hernia refrigeration repair supervisor. Call their office to get an appointment. Motrin and Tylenol for pain.[facility] Work Phone: Hospital Discharge instructionsAdditional Instructions Please follow-up with your family doctor and/or surgeon for repeat evaluation and return to the ER should you have any further concernsWZanes[facility] Work Phone: Hospital Discharge instructionsAdditional Instructions Thank you for trusting us with your care today! Your labs and images are reassuring. Your CT scan did not show evidence of incarcerated or strangulated hernia. Please take Tylenol (2 pills, 650 mg), ibuprofen (2 pills, 400 mg) every 6 hours as needed for pain and fever control. Please take oxycodone for breakthrough pain. Please return to the emergency department if your symptoms change or worsen. Please follow with Your Surgeon and Pain management for further outpatient evaluation and management.[facility] Work Phone: Progress note No data available for this section [facility] Reason for referral (narrative)No reason for referral information availableWZanesville City Hospital Work Phone: Reason for visit Narrative* Consultation (Routine) - Authorized Specialty Diagnoses / Procedures Referred By Contac t Referred To Contact General Surgery Diagnoses History of abdominal hernia Jonathan Gonzalez MD [address] [address] Phone: tel: fax: Stephon Benavides MD [address] [place] [address] Dariela Leyva Jamaal[address] [address] Phone: tel: fax: Referral ID Status Reason Start Date Expiration Date Visits Requested Visits Authorized [id number] Authorized Specialty Services Required 07/29/2024 07/29/2025 1 1 [facility] Work Phone: summary note* Daksha Love: PERFORM Event Display: Patient Summary Documents Authored Date: [id number] [facility] summary note* VERONIKA Connors: PERFORM Event Display: Patient Summary Documents Authored Date: [id number] [facility] summary note* VERONIKA Connors: PERFORM Event Display: Patient Summary Documents Authored Date: [id number] [facility] summary note* VERONIKA Carmona: PERFORM Event Display: Patient Summary Documents Authored Date: [id number] [facility] summary of episode note* Barbara Michele RN: PERFORM Event Display: Outpatient Patient Summary Authored Date: [id number] Discharge Instructions Thank you for allowing [facility] to assist you with your healthcare needs. The following is importantdischarge information regarding your hospital visit. Your Care Team AARON DUQUE MD Your Diagnosis Acute post-operative pain What to do next Follow Up Appointments Follow Up with AARON DUQUE MD, Surgery When In 2 weeks Why: Call office to schedule follow up appointment. Where: [address] [facility] [address] [facility] [place] [address]- [phone] The Following Activity and Diet Have Been Ordered for You Discharge Activity - Ordered -- Sexual Wallace Restricted No bending, twisting, crawling or squatt, [...] When Why Instructions Last Dose New acetaminophen-hydrocodone ([place] 325- 5 mg oral tablet) 1 tab(s) by mouth Every 4 hours as needed for Pain, scale 4-6 Acute post-operative pain Duration: 7 Days Pickup at [facility]/pharmacy #[id number] Unchanged carBAMazepine (TEGretol 200 mg oral tablet) 3 tab(s) by mouth Two (2) times a day Seizure Post-operative state s/p umbilical hernia repair, possible seizure following surgery Pharmacy Information [facility]/pharmacy #[id number]: [address], [place] [phone] Please take this list to your next [...] Document Reviewed: 06/21/2019 Elsevier Patient Education 2020 [employer]. How To Use an Incentive Spirometer [...] as possible. If the spirometer includes a wellness health coach indicator, use this to guide you [...] 10/13/2007 Document Revised: 06/25/2018 Document Reviewed: 04/15/2018 UniPay Patient Education 2020 The [employer] website. [facility] Surgical drains are [...] placed at your back, or any other jcle-jh-gcnex area, ask another person to assist you [...] and water are not available, use hand fire extinguisher technician. 3. Remove the old dressing. Avoid using [...] and water are not available, use hand fire extinguisher technician. 3. Loosen any pins or clips that [...] placed at your back, or any other sgef-cu-geljs area, ask another person to assist you. [...] Document Reviewed: 07/07/2019 Elsevier Patient Education 2019 [employer]. Ryan Pantoja Drain Patient Education After [...] Document Reviewed: 06/03/2014 ExitCare Patient Information 2015 [employer]. This information is not intended to replace [...] garbage bag. Soap and water, or hand fire extinguisher technician. Wound cleanser or salt-water solution (saline). New [...] and water are not available, use hand fire extinguisher technician. 3. Set up a clean station for [...] and water are not available, use hand fire extinguisher technician. Clean your wound Wear gloves, protective clothing, [...] and water are not available, use hand fire extinguisher technician. Apply new dressing Wear gloves, protective clothing, [...] and water are not available, use hand fire extinguisher technician. 8. Turn the pump back on. The sponge dressing should collapse. Do not change the settings on the machine without talking to a health care provider. 9. Replace the container in the pump that collects fluid if it is full. Replace the container per the operations architect's instructions or at least once a week, [...] all clamps are open. Do not use zzje-elb-bhyvmme medicated or antiseptic creams, sprays, liquids, or [...] 08/24/2012 Document Revised: 09/24/2019 Document Reviewed: 08/20/2019 UniPay Patient Education 2020 The [employer] website. Nausea and Vomiting, Adult Nausea is the [...] water added (diluted fruit juice). Eat bland, ehdw-nd-ntumxf foods in small amounts as you are able. These foods include bananas, applesauce, rice, lean meats, toast, and crackers. Avoid fluids that contain a lot of sugar or caffeine, such as energy drinks, sports drinks, and soda. Avoid alcohol. Avoid spicy or fatty foods. General instructions Take uusa-rxv-lkxawvd and prescription medicines only as told by your health care provider. Drink enough fluid to keep your urine pale yellow. Wash your hands often using soap and water. If soap and water are not available, use hand fire extinguisher technician. Make sure that all people in your [...] eating and drinking to prevent dehydration. Take bxhy-kju-opisqxd and prescription medicines only as told by [...] 06/02/2006 Document Revised: 09/24/2019 Document Reviewed: 11/10/2018 ElseWayfair Patient Education 2020 The Meish[employer] website. Monitored Anesthesia Care, Care After These instructions [...] before eating solid foods. General instructions Take uafm-qob-omcuswn and prescription medicines only as told by [...] 09/22/2016 Document Revised: 08/31/2018 Document Reviewed: 09/22/2016 UniPay Patient Education 2020 The [employer] website. Open Hernia Repair, Adult, Care After This [...] and water are not available, use hand fire extinguisher technician. ? Change your dressing as told by [...] urine clear or pale yellow. ? Take vamt-ikj-rrzvvxc or prescription medicines. ? Eat foods that are high in fiber, such as fresh fruits and vegetables, whole grains, and beans. ? Limit foods that are high in fat and processed sugars, such as fried and sweet foods. Take khao-yql-jitzqpf and prescription medicines only as told by [...] 12/20/2005 Document Revised: 05/15/2018 Document Reviewed: 11/13/2016 ElseWayfair Patient Education 2020 UniPay Inc. Additional Information VACCINATE! IT SAVES LIVES! Members of the community who have not yet received the COVID-19 vaccine and would like to receive it can visit one of [facility] vaccine clinics. There are many vaccine clinic locations within the [facility]. For locations and available times, please visit [email or web address] It is important to note that some COVID mobile vaccine clinics are held outdoors and may be canceled in rainy or stormy conditions. To learn more about pediatric vaccinations (ages 5-11), we invite you to visit the [facility] webpage. [email or web address]/[email or web address]-Uqchqgsdjyc-Mwqbuqowge-Alaef-Yfy stions.htmlTo learn more about the COVID-19 vaccine, we invite you to visit the [employer] website for a list of frequently asked questions. [email or web address]://[email or web address] Star Mobile/assets/Glawuphc-qvh-Lfbqpntb/etifb-Yjfsgxx-Nhangswrzd _Asked-Questions.pdf [facility] Patient Portal Access Instructions: Stay connected with your healthcare team and access your personal medical information anytime with the [facility] [employer] Patient Portal.If you would like a full copy of your medical records, please contact the [facility] Medical Records Department, Friday through Friday between 8a.m. and 4:30p.m. Please follow the directions below to access the portal: 1.Access the email account you provided upon registration to the [facility].2.Look for an invitation email from [facility].3.Open the email and access the invitation link: [facility].Fill in the required vegas to create your account. Sign into [email or web address] with your username and password that you [...] you will allow to register on the [facility] Patient Portal for access to your information. You can also access the [facility] Patient Portal on the [employer] randal. Simply click on Health Records under Bubbleballta and then click on the [facility] logo. HOW TO SAFELY DISPOSE OF PRESCRIPTION [...] Call your local pharmacy or go to http://bit.ly/2P1Pn3u to find one close to you.3.Make use of household items: Use cat litter or old coffee grounds to dispose medications if other options arenot available. Mix your drugs with these household products, seal them in an airtight container andthrow it into the garbage. Call [facility]: [phone] to be sure your drugs can be [...] an Incentive Spirometer [facility] - [place] Pantoja Drain (03/2018)(CUSTOM) Negative Pressure Wound Therapy [...] aware that I should contact my doctor. 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 Signature: Date/Time: Relationship to Patient: Witness Name/Signature: Date/Time: [facility] Colindres Summary Purpose Family History No Family [...] No January 01, 2022 6:14pm Power of Icu Manager No January 01 6:14pm Advance Directive Response Recorded Date/ Time Advance Directives No July 05, 2017 11:20pm Living Will No July 04 12:18am Power of Icu Manager No July 04, 2023 12:18am Advance Directive Response Recorded Date/ Time Advance Directives No July 05, 2017 11:20pm Living Will No June 01 023 1:14am Power of Icu Manager No June 01, 2023 1:14am Advance Directive Response Recorded Date/ Time Living Will No August 24, 2024 10:40pm Power of Icu Manager No August 24 10:40pm Advance Directives No July 06, 2017 12:20am Advance Directive Response Recorded Date/ Time Living Will No August 24, 2024 10:40pm Do you have a Healthcare Power of Icu Manager? No August 24, 2024 10:40pm Living Will No September 19, 2024 9:34pm Do you have a Healthcare Power of Icu Manager? No September 19, 2024 9:34pm Advance Directives No July 06, 2017 12:20am Advance Directive Response Recorded Date/ Time Living Will No August 24, 2024 10:40pm Do you have a Healthcare Power of Icu Manager? No August 24, 2024 10:40pm Living Will No September 19, 2024 9:34pm Do you have a Healthcare Power of Icu Manager? No September 19, 2024 9:34pm Do you have a Healthcare Power of Icu Manager? No December 06, 2024 11:19pm Advance Directives No July 06, 2017 12:20am Advance Directive Response Recorded Date/ Time Living Will No August 24, 2024 10:40pm Do you have a Healthcare Power of Icu Manager? No August 24, 2024 10:40pm Living Will No September 19, 2024 9:34pm Do you have a Healthcare Power of Icu Manager? No September 19, 2024 9:34pm Do you have a Healthcare Power of Icu Manager? No December 06, 2024 11:19pm Do you have a Healthcare Power of Icu Manager? No December 08, 2024 11:45pm Advance Directives No July 06, 2017 12:20am Advance Directive Response Recorded Date/ Time Living Will No September 19, 2024 9:34pm Do you have a Healthcare Power of Icu Manager? No September 19, 2024 9:34pm Do you have a Healthcare Power of Icu Manager? No December 06, 2024 11:19pm Do you have a Healthcare Power of Icu Manager? No December 08, 2024 11:45pm Do you have a Healthcare Power of Icu Manager? No December 29, 2024 9:30pm Advance Directives No July 06, 2017 12:20am Advance Directive Response Recorded Date/ Time Do you have a Healthcare Power of Icu Manager? No December 06, 2024 11:19pm Do you have a Healthcare Power of Icu Manager? No December 08, 2024 11:45pm Do you have a Healthcare Power of Icu Manager? No December 29, 2024 9:30pm Do you have a Healthcare Power of Icu Manager? No January 25, 2025 10:34pm Advance Directives No July 06, 2017 12:20am Advance Directive Response Recorded Date/ Time Do you have a Healthcare Power of Icu Manager? No December 06, 2024 11:19pm Do you have a Healthcare Power of Icu Manager? No December 08, 2024 11:45pm Do you have a Healthcare Power of Icu Manager? No December 29, 2024 9:30pm Do you have a Healthcare Power of Icu Manager? No January 25, 2025 10:34pm Do you have a Healthcare Power of Icu Manager? No February 17, 2025 10:06pm Advance Directives No July 06, 2017 12:20am Advance Directive Response Recorded Date/ Time Do you have a Healthcare Power of Icu Manager? No December 06, 2024 11:19pm Do you have a Healthcare Power of Icu Manager? No December 08, 2024 11:45pm Do you have a Healthcare Power of Icu Manager? No December 29, 2024 9:30pm Do you have a Healthcare Power of Icu Manager? No January 25, 2025 10:34pm Do you have a Healthcare Power of Icu Manager? No February 17, 2025 10:06pm Do you have a Healthcare Power of Icu Manager? No February 27, 2025 9:28pm Advance Directives No July 06, 2017 12:20am [...] :22pm Abd pain February 17, 2025 9:20pm Chief Complaint Admit Date hand injury December 06, 2024 11:1 9pm HERNIA December 08, 2024 11:3 3pm ABD PAIN December 29, 2024 9:21 pm ABD PAIN January 25, 2025 10 :22pm Abd pain February 17, 2025 9:20pm abdominal pain February 27, 2025 8:50pm Reason for Referral Specialty Diagnoses / Procedures Referred By Contac t Referred To Contact Neurosurgery Diagnoses Left lower quadrant abdominal pain Procedures CONSULT TO NEUROSURGERY Trinidad Richardson MD [address] [place] [address] Juliocesar Borrero MD, PhD [address] [place] [address] Referral ID Status Reason Start Date Expiration Date Visits Requested Visits Authorized [id number] Ref Not Required PCP Requested Referral 10/07/2023 10/06/2024 1 1 Specialty Diagnoses / Procedures Referred By Contac t Referred To Contact Diagnoses Preoperative examination Infected hernioplasty mesh, sequela Procedures REFER TO PACC - PRE ANESTHESIA CONSULTATION CLINIC OFFICE/OUTPATIENT [facility] 60 MINUTES Suresh Griffiths, CHILDREN'S SERVICE WORKER.INVOICE CLERK [address] [place] [address] Referral ID Status Reason Start Date Expiration Date Visits Requested Visits Authorized [id number] Authorized PCP Requested Referral 07/21/2023 07/20/2024 1 1 Specialty Diagnoses / Procedures Referred By Contac t Referred To Contact [facility] Diagnoses Preoperative examination Infected hernioplasty mesh, sequela Procedures ECG COMPLETE ECG ROUTINE ECG W/LEAST 12 LDS W/I&R Suresh Griffiths, CHILDREN'S SERVICE WORKER.INVOICE CLERK [address] [place], [place] [id number] [facility] [place] [id number] Referral ID Status Reason Start Date Expiration Date Visits Requested Visits Authorized [id number] Pending Review Auto-Generat ed Referral 07/21/2023 07/20/2024 1 1 Specialty Diagnoses / Procedures Referred By Contac t Referred To Contact Diagnoses Preoperative examination Infected hernioplasty mesh, sequela Procedures CONSULT TO DD BEHAVIORAL MEDICINE OFFICE/OUTPATIENT [facility] 60 MINUTES Suresh Griffiths, CHILDREN'S SERVICE WORKER.INVOICE CLERK [address] [place], [place] [id number] Referral ID Status Reason Start Date Expiration Date Visits Requested Visits Authorized [id number] Authorized PCP Requested Referral 07/21/2023 07/20/2024 1 1 Specialty Diagnoses / Procedures Referred By Lilli t Referred To Contact [facility] Diagnoses Left lower quadrant abdominal pain Procedures CONSULT TO [facility] (CHRONIC PAIN) OFFICE/OUTPATIENT [facility] 60 MINUTES Sruesh Griffiths APRN.[facility] [address] [place] [phone] Referral ID Status Reason Start Date Expiration Date Visits Requested Visits Authorized [id number] Pending Review PCP Requested Referral 07/18/2023 07/17/2024 [...] section and content) DATE CREATED AUTHOR 12/10/2017 [facility] DATE CREATED AUTHOR AUTHOR'S ORGANIZ ATION 12/10/2021 [facility] DATE CREATED AUTHOR AUTHOR'S ORGANIZ ATION 03/18/2022 [facility] DATE CREATED AUTHOR AUTHOR'S ORGANIZ ATION 04/30/2022 [facility] DATE CREATED AUTHOR AUTHOR'S ORGANIZ ATION 06/12/2022 [facility] DATE CREATED AUTHOR AUTHOR'S ORGANIZ ATION 06/15/2022 [facility] DATE CREATED AUTHOR AUTHOR'S ORGANIZ ATION 02/23/2023 [facility] DATE CREATED AUTHOR AUTHOR'S ORGANIZ ATION 10/16/2023 [facility] ([place]) DATE CREATED AUTHOR AUTHOR'S ORGANIZ ATION 11/07/2023 [facility] DATE CREATED AUTHOR AUTHOR'S ORGANIZ ATION 02/28/2025 [facility] DATE CREATED AUTHOR AUTHOR'S ORGANIZ ATION 03/03/2025 [facility] DATE CREATED AUTHOR AUTHOR'S ORGANIZ ATION 03/05/2025 [facility] Care Team (unrecognized sect ion and content) 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 Leydi Martin MD Family Provider Active No Primary Care Physician Primary Care Provider Active Team Status: Inactive Member Role Status Dates No Primary Care Physician Primary Care Provider, Refer ring Provider Active Dr. Jeffery Weber MD Attending Provider Active Team Status: Inactive Member Role Status Dates No Primary Care Physician Primary Care Provider Active Dr. Chloe Shea DO Attending Provider, Emergency P angel Active Team Status: Inactive Member Role Status Dates No Primary Care Physician Primary Care Provider Active Dr. 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 Off Machine Operator Relationship Specialty Start Date End Date Leydi Martin MD [address] [facility] [place] [address] PCP - General Internal Medicine 07/08/17 Jeffery Weber MD [address] [place] [address] General Surgery 06/13/23 Cut Off Machine Operator Relationship Specialty Start Date End Date Leydi Martin MD [address] [facility] [place] [address] PCP - General Internal Medicine 07/08/17 Jeffery Weber MD [address] [facility] [address] [place] [address] General Surgery 06/13/23 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 Off Machine Operator Relationship Specialty Start Date End Date Leydi Martin MD [address] [facility] [place] [address] PCP - General Internal Medicine 07/08/17 Jeffery Weber MD [address] [place] [address] General Surgery 06/13/23 Cut Off Machine Operator Relationship Specialty Start Date End Date Leydi Martin MD [address] [facility] [place] [address] PCP - General Internal Medicine 07/08/17 Jeffery Weber MD [address] [address] General Surgery 06/13/23 Cut Off Machine Operator Relationship Specialty Start Date End Date Leydi Martin MD [address] [place] [address] PCP - General Internal Medicine 07/08/17 Jeffery Weber MD [address] [address] General Surgery 06/13/23 Cut Off Machine Operator Relationship Specialty Start Date End Date Leydi Martin MD [address] [facility] [address] PCP - General Internal Medicine 07/08/17 Jeffery Weber MD [address] [address] General Surgery 06/13/23 Cut Off Machine Operator Relationship Specialty Start Date End Date Leydi Martin MD [address] [facility] [address] PCP - General Internal Medicine 07/08/17 [place] [address] [place] [address] General Surgery 06/13/23 Cut Off Machine Operator Relationship Specialty Start Date End Date Jonathan Gonzalez MD [address] [place] [address] Surgeon General Surgery 06/21/24 Cut Off Machine Operator Relationship Specialty Start Date End Date Jonathan Gonzalez MD [address] [place], [place] [id number] Surgeon General Surgery 06/21/24 Cut Off Machine Operator Relationship Specialty Start Date End Date Jonathan Gonzalez MD [address] [place] [address] Surgeon General Surgery 06/21/24 Team Status: Active Member Role Status Dates No Primary Care Physician Primary Care Provider Active Team Status: Inactive Member Role Status Dates No Primary Care Physician Primary Care Provider Active Start: August 24, 2024 End: August 24, 2024 Dr. Cristian Sanderson DO Emergency Provider Active Start : August 24, 2024 End: August 24, 2024 Team Status: Active Member Role Status Dates Viola Starkey NP, MEAL PACKER-C Primary Care Provider Active Team Status: Inactive Member Role Status Dates Dr. Cristian Sanderson DO Attending Provider Active Start : August 24, 2024 End: August 24, 2024 Dr. Cristian Sanderson DO Emergency Provider Active Start : August 24, 2024 End: August 24, 2024 Viola Starkey NP, MEAL PACKER-C Primary Care Provider Active Start: August 24, 2024 End: August 24, 2024 Team Status: Inactive Member Role Status Dates Viola Starkey NP, MEAL PACKER-C Primary Care Provider Active Start: September 19, 2024 End: September 19, 2024 Brian Maldonado MD Referring Provider Active Star t: September 19, 2024 End: September 19, 2024 Brian Maldonado MD Emergency Provider Active Star t: September 19, 2024 End: September 19, 2024 Team Status: Inactive Member Role Status Dates Viola Starkey MEAL PACKER, MEAL PACKER-C Primary Care Provider Active Start: September 19, [...] Inactive Member Role Status Dates Viola Starkey MEAL PACKER, MEAL PACKER-C Primary Care Provider Active Start: December 06, 2024 End: December 07, 2024 Dr. Guevara Choi MD Emergency Provider Active Start: December 06, 2024 End: December 07, 2024 Team Status: Inactive Member Role Status Dates Viola Starkey MEAL PACKER, MEAL PACKER-C Primary Care Provider Active Start: December 08, 2024 End: December 09, 2024 Dr. Guero Baker DO Emergency Provider Active Start: December 08, 2024 End: December 09, 2024 Team Status: Active Member Role/Relationship Status Dates Viola tSarkey MEAL PACKER, MEAL PACKER-C Primary Care Provider Active Team Status: Inactive Member Role/Relationship Status Dates Viola Starkey MEAL PACKER, MEAL PACKER-C Primary Care Provider Active Start: September 19, [...] Inactive Member Role/Relationship Status Dates Viola Starkey MEAL PACKER, MEAL PACKER-C Primary Care Provider Active Start: December 06, 2024 End: December 07, 2024 Dr. Guevara Choi MD Attending Provider Active Start: December 06, 2024 End: December 07, 2024 Dr. Guevara Choi MD Emergency Provider Active Start: December 06, 2024 End: December 07, 2024 Team Status: Inactive Member Role/Relationship Status Dates Viola Starkey MEAL PACKER, MEAL PACKER-C Primary Care Provider Active Start: December 08, 2024 End: December 09, 2024 Dr. Guero Baker DO Attending Provider Active Start: December 08, 2024 End: December 09, 2024 Dr. Guero Baker DO Emergency Provider Active Start: December 08, 2024 End: December 09, 2024 Team Status: Inactive Member Role/Relationship Status Dates Viola Starkey MEAL PACKER, MEAL PACKER-C Primary Care Provider Active Start: December 29, 2024 End: December 29, 2024 Dr. Justin Cordero MD Emergency Provider Active S tart: December 29, 2024 End: December 29, 2024 Team Status: Inactive Member Role/Relationship Status Dates Viola Starkey MEAL PACKER, MEAL PACKER-C Primary Care Provider Active Start: December 06, 2024 End: December 07, 2024 Dr. Guevara Choi MD Attending Provider Active Start: December 06, 2024 End: December 07, 2024 Dr. Guevara Choi MD Emergency Provider Active Start: December 06, 2024 End: December 07, 2024 Team Status: Inactive Member Role/Relationship Status Dates Viola Starkey MEAL PACKER, MEAL PACKER-C Primary Care Provider Active Start: December 08, 2024 End: December 09, 2024 Dr. Guero Baker DO Attending Provider Active Start: December 08, 2024 End: December 09, 2024 Dr. Guero Baker DO Emergency Provider Active Start: December 08, 2024 End: December 09, 2024 Team Status: Inactive Member Role/Relationship Status Dates Viola Starkey MEAL PACKER, MEAL PACKER-C Primary Care Provider Active Start: December 29, 2024 End: December 29, 2024 Dr. Justin Cordero MD Attending Provider Active S tart: December 29, 2024 End: December 29, 2024 Dr. Justin Cordero MD Emergency Provider Active S tart: December 29, 2024 End: December 29, 2024 Team Status: Inactive Member Role/Relationship Status Dates Viola Starkey MEAL PACKER, MEAL PACKER-C Primary Care Provider Active Start: January 25, 2025 End: January 26, 2025 Dr. Guero Baker DO Emergency Provider Active Start: January 25, 2025 End: January 26, 2025 Team Status: Inactive Member Role/Relationship Status Dates Viola Starkey MEAL PACKER, MEAL PACKER-C Primary Care Provider Active Start: January 25, 2025 End: January 26, 2025 Dr. Guero Baker DO Attending Provider Active Start: January 25, 2025 End: January 26, 2025 Dr. Guero Baker DO Emergency Provider Active Start: January 25, 2025 End: January 26, 2025 Team Status: Inactive Member Role/Relationship Status Dates Viola Starkey MEAL PACKER, MEAL PACKER-C Primary Care Provider Active Start: February 17, 2025 End: February 18, 2025 Dr. Guero Baker DO Emergency Provider Active Start: February 17, 2025 End: February 18, 2025 Team Status: Inactive Member Role/Relationship Status Dates Viola Starkey MEAL PACKER, MEAL PACKER-C Primary Care Provider Active Start: February 17, 2025 End: February 18, 2025 Dr. Guero Baker DO Attending Provider Active Start: February 17, 2025 End: February 18, 2025 Dr. Guero Baker DO Emergency Provider Active Start: February 17, 2025 End: February 18, 2025 Team Status: Inactive Member Role/Relationship Status Dates Viola Starkey MEAL PACKER, MEAL PACKER-C Primary Care Provider Active Start: February 27, 2025 End: February 27, 2025 Dr. Joseluis Maier DO Emergency Provider Active Start: February 27, 2025 End: February 27, 2025 Care Team (unrecognized sect ion and [...] Team Related Persons Name: AMANDA WELSH Name: WILFREDO LOLIS Care Team Personnel Name: PHYSICIAN, NONE [...] or prosecute any alcohol or drug abuse patient.[facility] the event this information is protected by the Federal Confidentiality of Alcohol and Drug Abuse Patient Records regulations: The Federal rules restrict any use of the information to criminally investigate or prosecute any alcohol or drug abuse patient.[facility] the event this information is protected by the Federal Confidentiality of Alcohol and Drug Abuse Patient Records regulations: The Federal rules restrict any use of the information to criminally investigate or prosecute any alcohol or drug abuse patient.[facility] the event this information is protected by the Federal Confidentiality of Alcohol and Drug Abuse Patient Records regulations: The Federal rules restrict any use of the information to criminally investigate or prosecute any alcohol or drug abuse patient.[facility] Hospital[facility] the event this information is protected by the Federal Confidentiality of Alcohol and Drug Abuse Patient Records regulations: The Federal rules restrict any use of the information to criminally investigate or prosecute any alcohol or drug abuse patient.[facility] HospitalIn the event this information is protected by the Federal Confidentiality of Alcohol and Drug Abuse Patient Records regulations: The Federal rules restrict any use of the information to criminally investigate or prosecute any alcohol or drug abuse patient.[facility] Hospital[facility] the event this information is protected by the Federal Confidentiality of Alcohol and Drug Abuse Patient Records regulations: The Federal rules restrict any use of the information to criminally investigate or prosecute any alcohol or drug abuse patient.[facility] HospitalIn the event this information is protected by the Federal Confidentiality of Alcohol and Drug Abuse Patient Records regulations: The Federal rules restrict any use of the information to criminally investigate or prosecute any alcohol or drug abuse patient.[facility] Reason for Visit (unrecogniz ed section [...] By Contac t Referred To Contact [facility] / NEUROLOGY PAIN Diagnoses Left lower quadrant abdominal pain Procedures CONSULT TO [facility] ([facility]RON[facility] PAIN) OFFICE/OUTPATIENT [facility] 60 MINUTES Suresh Griffiths, [place].INVOICE CLERK [address] [place] [address] [facility] [id number] [place] [address] Referral ID Status Reason Start Date Expiration Date V isits Requested Visits Authorized [id number] Closed PCP Requested Referral 07/21/2023 06/15/2024 1 [...] BE BASED ON THE PRIMARY CLINICAL RECORDS. [facility]. provides no warranty or guarantee of the accuracy or completeness of information in this document.
[2025-03-07 23:38] VITALS: BP 148/89; PULSE 85; RESP 16; O2SAT 99
--- NOTE | 2025-03-07 23:40 | RAD_ITS ---
PROCEDURE: CHEST 1 VIEW (PORTABLE) 03/07/2025 REASON FOR EXAM: SEIZURE TECHNIQUE: Frontal view of the chest. COMPARISON: None. FINDINGS: Lungs/Pleura: Clear. No pneumothorax or sizable pleural effusion. Heart/Mediastinum: Within normal limits. Bones/Soft tissues: No significant abnormality. RAD/Chest 1 View (Portable) IMPRESSION: No acute cardiopulmonary disease. Reading Location: [facility]
[2025-03-08 00:04] LABS: Hematocrit 43.3 % (40-54); Hemoglobin 14.9 g/dL (13.0-16.5); Immature Granulocytes Count 0.080 X10^3/uL (0.0-0.0); Mean Corp Hgb Conc 34.4 g/dL (32-36); Mean Corpuscular Volume 91.2 fL (80-94); Mean Platelet Vol. 9.9 fl (6.2-12.0); NRBC Flagged by Analyzer 0 % (0-5); Platelet Count 312 K/mm3 (150-450); RBC Distribution Width CV 13.0 % (11.6-14.6); RBC Distribution Width SD 43.3 fl (35.1-43.9); Red Blood Count 4.75 M/mm3 (4.6-6.2); White Blood Count 9.6 K/mm3 (4.4-11.0)
[2025-03-08 00:20] LABS: Magnesium 2.1 mg/dL (1.5-2.2)
[2025-03-08 00:23] LABS: Anion Gap 12 (5-15); BUN 11 mg/dL (4-19); BUN/Creat Ratio 15.2 RATIO (10-20); Calcium,Total 9.0 mg/dL (7.6-11.0); Carbon Dioxide 22.2 mmol/L (21.0-32.0); Chloride 102 mmol/L (98-108); Estimated Creatinine Clearance 199.80 ml/min (50-250); Glucose 115 mg/dL (70-99); Potassium 4.1 mmol/L (3.3-5.1)
--- NOTE | 2025-03-08 00:33 | EDS_ITS ---
HPI History of Present Illness Chief Complaint: Seizure Informant: patient and spouse/S.O. Narrative Narrative: Patient is a 45-year-old male with remote history of seizure disorder. He reportedly has not had a seizure for 3 years and does not take antiepileptic medication. He also has a history of a chronic ventral hernia. He states this evening he was sitting on the couch watching a movie. And then the next he remembers he is waking up. His reports that she noticed his head starting to margarita and that progressed to further shaking. Patient denies loss of bowel or bladder control. He states that he has not been sick in any way recently he has not started or stopped any medications and he denies any alcohol use. As he has not had a seizure for multiple years he presents for evaluation [facility] Medical History (Updated 03/08/25 @ 01:[address] Guero Baker, DO) Abdominal pain Seroma after procedure Influenza due to influenza virus, type A, human Contact with or suspected exposure to other viral communicable disease Sprain of left foot Left ankle sprain Strain of left knee Contusion of left knee Seizures Home Medications ?Medication ?Instructions ?Recorded ?Last Taken ?Type NK 03/07/25 Unknown History Allergy/AdvReac Type Severity Reaction Status Date / Time adhesive tape Allergy Hives Verified 03/07/25 22:42 cephalexin monohydrate (From Allergy Anaphylaxis Verified 03/07/25 22:42 Keflex) levetiracetam (From Keppra) Allergy Hives Verified 03/07/25 22:42 morphine Allergy Shortness Verified 03/07/25 22:42 of breath naproxen (From Naprosyn) Allergy Hives Verified 03/07/25 22:42 Family History Grandmother Arthritis Mother Arthritis Seizures Father Colon cancer Diabetes Brother Heart disease Surgical History H/O hernia repair History of appendectomy Social History household members: spouse Smoking Status: Current every day smoker tobacco type: cigarettes alcohol intake: never ROS ROS ED Constitutional Constitutional ED: Denies chills or fever(s) Eyes Eyes: Denies change in vision ENT ENT ED: Denies rhinorrhea or sore throat Cardiovascular Cardiovascular: Denies chest pain Respiratory/Chest Respiratory/Chest: Denies cough or dyspnea Gastrointestinal Gastrointestinal: Reports abdominal pain; Denies diarrhea, nausea or vomiting Genitourinary Genitourinary ED: Denies dysuria Musculoskeletal Musculoskeletal: Denies back pain, myalgias or neck pain Integumentary Denies rash Neurologic Neurologic: Reports headache(s); Denies paresthesias or weakness Hematologic/Lymphatic Hematologic/Lymphatic: Denies easy bleeding or easy bruising EXAM Physical Exam Const Vital Signs: 03/07/25 22:38 03/07/25 23:38 03/08/25 00:56 Temperature 98.4 F 98.0 F Temperature Source Oral Pulse Rate 90 85 70 Respiratory Rate 14 16 16 Blood Pressure 159/87 H 148/89 H 122/81 H Blood Pressure Mean 111 108 94 Pulse Ox 98 99 98 Oxygen Delivery Method Room Air Room Air Positive well nourished and well developed General Appearance ED: well developed; Negative for pallor HEENT HEENT Narrative: Normocephalic atraumatic No tongue or cheek biting noted No findings in the posterior pharynx to suggest infection Eyes PERRL and EOMs intact bilaterally General Eye ED: Negative for scleral icterus Neck supple Neck Narrative: No nuchal rigidity or meningeal sign Chest Wall palpation of chest normal Resp normal respiratory effort and clear to auscultation bilaterally Cardio regular rate and regular rhythm GI non-distended and no masses GI Narrative: There is a ventral hernia noted that is reducible in nature Otherwise no voluntary guarding rigidity or pulsatile mass Auscultation: normoactive bowel sounds Palpation: soft Extremity normal to inspection Neuro oriented x3, CN's II-XII intact bilaterally and no sensory deficits noted Neuro Narrative: GCS of 15 Cranial nerves II through XII are grossly intact without focal neurologic deficit No pronator drift no dysmetria no truncal ataxia NIH stroke scale score of 0 Sensorium / Orientation: alert Motor Exam: strength 5/5 throughout Psych mental status grossly normal Skin no rashes or lesions noted and no wounds General Skin Exam: Negative for jaundice or pallor MDM MDM MDM Narrative Medical decision making narrative: Patient arrived to the ER hypertensive but otherwise with stable vitals. Patient and reported a breakthrough seizure. Patient does have a history of seizure disorder but has not had a seizure for multiple years. In order to assess for potential brain mass versus spontaneous subarachnoid or subdural hemorrhage a CT of the head was obtained. In order to assess for other potential causes such as acute blood loss anemia acute kidney injury or electrolyte abnormality lab work was obtained. Chest x-ray was ordered to rule out aspiration or pneumonia as a cause. Chest x-ray revealed no acute lung pathology. Lab work revealed no clinically significant findings. The patient had no bouts of seizure activity while in the ER. On reevaluation he is resting comfortably and neurologic exam remains normal. Therefore at this time with overall negative workup no recurrent seizure activity and the patient at a baseline mental status without neurologic findings there is no need for further intervention or admission in the ER and is otherwise safe for discharge home History & Record Review Discussion w/independent historian: Patient and Significant other Lab Data Attestation: I reviewed the patient's lab results. Labs: Laboratory Results - last 24 hr 03/07/25 23:20 WBC 9.6 RBC 4.75 Hgb 14.9 Hct 43.3 MCV 91.2 MCH 31.4 MCHC 34.4 RDW Std Deviation 43.3 RDW Coeff of Nory 13.0 Plt Count 312 MPV 9.9 Immature Gran % (Auto) 0.800 Neut % (Auto) 53.7 Lymph % (Auto) 34.8 Chickasaw % (Auto) 6.0 Eos % (Auto) 3.6 Baso % (Auto) 1.1 H Absolute Neuts (auto) 5.2 Absolute Lymphs (auto) 3.35 Nucleated RBC % 0 Sodium 136 Potassium 4.1 Chloride 102 Carbon Dioxide 22.2 Anion Gap 12 BUN 11 Creatinine 0.73 Estim Creat Clear Calc 199.80 Est GFR (MDRD) Non-Af 114 BUN/Creatinine Ratio 15.2 Glucose 115 H Lactic Acid 1.6 Calcium 9.0 Magnesium 2.1 Radiography Diagnostic Testing: Clinical Impression(s) from Imaging Studies Brain CT 03/07/25 23:13 IMPRESSION: Unremarkable head CT. Reading Location: [facility] Chest X-Ray 03/07/25 23:40 IMPRESSION: No acute cardiopulmonary disease. Reading Location: [id number] Chest x-ray as interpreted by the emergency medicine physician reveals no acute infiltrate pneumothorax or pleural effusion Discharge Plan Triage Chief Complaint: Seizure ED Provider: Guero Baker Dx/Rx/DC Orders Clinical Impression: Breakthrough seizure, Ventral hernia, Hypertension Instructions: Seizure Affects on Body, Self-Care for Seizures Prescriptions: No Action NK Primary Care Provider: Viola Starkey NP Referrals: Murphy Dillard MD [Non-Staff -Ordering Privileges, Neurology] Viola Starkey NP, PORTFOLIO SPECIALIST-C [Primary Care Provider, Family Practice] Activity Restrictions/Additional Instructions: Your workup revealed no obvious cause for a breakthrough seizure such as infection brain mass/bleed or electrolyte abnormality. Please follow-up with your family doctor as well as urology to discuss restarting medication and return to the ER should you have any further concerns. Print Language: Somali Disposition Disposition: Home, Self Care Discharge Date/Time: 03/08/25 00:58
[2025-03-08] MEDS: HYDROmorphone 0.5 MG/0.5 ML SYRINGE IV (00:40)
[2025-03-08] MEDS: DiphenhydrAMINE 50 MG/ML Syringe IV (00:40)
[2025-03-08 00:56] VITALS: BP 122/81; PULSE 70; RESP 16; TEMP 36.7; O2SAT 98
== END 2025-03-08 00:58 | disposition home or self-care (01) ==
PROVIDERS: Emergency Provider Emergency Medicine; PCP Nurse Practitioner Family; Visit Provider Emergency Medicine
DX: R56.9 Unspecified convulsions (principal); I10 Essential (primary) hypertension; K43.9 Ventral hernia without obstruction or gangrene; F17.210 Nicotine dependence, cigarettes, uncomplicated; Z90.49 Acquired absence of other specified parts of digestive tract
CPT/HCPCS: 70450; 71045; 80048; 83605; 83735; 85025; 99285; A4216

== ENCOUNTER 2025-03-24 19:53 | Emergency (ER) | payer MEDICAID, SELFPAY ==
[2025-03-24 19:54] VITALS: BP 144/94; PULSE 108; RESP 18; TEMP 36.9; O2SAT 99; BMI 44.9
[2025-03-24 21:54] VITALS: BP 146/87; PULSE 93; O2SAT 98
--- NOTE | 2025-03-24 22:24 | EDS_ITS ---
HPI History of Present Illness Chief Complaint: Abd Pain Informant: patient Narrative Narrative: Patient is a 45-year-old male with known history of a ventral hernia. He states that he has been doing well and today was at work when he was asked to move a propane tank. He states the tank was small and not extremely heavy. He reports after lifting it however he developed pain in the upper abdomen. He states that there has been no fevers or chills nausea or vomiting. He reports he took [id number] medication without any symptom improvement. Therefore with the worsening pain he presents for evaluation [facility] Medical History (Updated 03/25/25 @ 23:[address] Guero Baker, DO) Abdominal pain Seroma after procedure Influenza due to influenza virus, type A, human Contact with or suspected exposure to other viral communicable disease Sprain of left foot Left ankle sprain Strain of left knee Contusion of left knee Seizures Home Medications ?Medication ?Instructions ?Recorded ?Last Taken ?Type oxycodone-acetaminophen 5 mg-325 1 tab PO Q6H PRN pain 3 days #12 03/24/25 Unknown Rx mg tablet (Percocet) tabs Allergy/AdvReac Type Severity Reaction Status Date / Time adhesive tape Allergy Hives Verified 03/24/25 19:55 cephalexin monohydrate (From Allergy Anaphylaxis Verified 03/24/25 19:55 Keflex) levetiracetam (From Keppra) Allergy Hives Verified 03/24/25 19:55 morphine Allergy Shortness Verified 03/24/25 19:55 of breath naproxen (From Naprosyn) Allergy Hives Verified 03/24/25 19:55 Family History Grandmother Arthritis Mother Arthritis Seizures Father Colon cancer Diabetes Brother Heart disease Surgical History H/O hernia repair History of appendectomy Social History household members: spouse Smoking Status: Current every day smoker tobacco type: cigarettes alcohol intake: never ROS ROS ED Constitutional Constitutional ED: Denies chills or fever(s) ENT ENT ED: Denies sore throat Cardiovascular Cardiovascular: Denies chest pain Respiratory/Chest Respiratory/Chest: Denies cough or dyspnea Gastrointestinal Gastrointestinal: Reports abdominal pain; Denies constipation, diarrhea, nausea or vomiting Genitourinary Genitourinary ED: Denies dysuria Musculoskeletal Musculoskeletal: Denies back pain or myalgias Integumentary Denies rash Neurologic Neurologic: Denies headache(s) Hematologic/Lymphatic Hematologic/Lymphatic: Denies easy bleeding or easy bruising EXAM Physical Exam Const Vital Signs: 03/24/25 19:54 03/24/25 21:54 Temperature 98.4 F Temperature Source Oral Pulse Rate 108 H 93 Respiratory Rate 18 Blood Pressure 144/94 H 146/87 H Blood Pressure Mean 110 106 Pulse Ox 99 98 Oxygen Delivery Method Room Air Room Air Positive well nourished, well developed and obese General Appearance ED: well developed; Negative for pallor Nutritional Appearance: obese HEENT HEENT Narrative: Normocephalic atraumatic Eyes PERRL and EOMs intact bilaterally General Eye ED: Negative for scleral icterus Neck supple Resp normal respiratory effort and clear to auscultation bilaterally Cardio regular rate and regular rhythm Rate: other Other Details: Radial and carotid pulses are equal and symmetric GI non-distended GI Narrative: Abdomen is obese soft and nondistended with normal active bowel sounds. There is a large ventral hernia noted with apparent intestine protruding through. However there is no sign of incarceration or strangulation as the hernia feels reducible. No peritoneal signs or pulsatile mass. No voluntary guarding or rigidity. No increased tympany or fluid wave. Auscultation: normoactive bowel sounds Palpation: soft Back/Spine no CVA tenderness Extremity normal to inspection Neuro oriented x3, CN's II-XII intact bilaterally and no sensory deficits noted Sensorium / Orientation: alert Motor Exam: strength 5/5 throughout Psych mental status grossly normal Skin no rashes or lesions noted Skin Narrative: No overlying soft tissue changes to suggest trauma or infection General Skin Exam: Negative for jaundice or pallor MDM MDM MDM Narrative Medical decision making narrative: Patient presented to the ER mildly hypertensive but otherwise with stable vitals. He has a known history of a ventral hernia he is scheduled to see a specialized surgeon in just a few days and he has been to the ER previously and worked up for this with normal laboratory studies and CT scan. As the pain came on after lifting I do feel that this is an exacerbation of his hernia. He does not have findings of cellulitis or abscess there is no sign of incarceration or strangulation or small bowel obstruction. Therefore I feel no need for imaging or laboratory studies and patient will be treated symptomatically and is otherwise safe for discharge. History & Record Review Discussion w/independent historian: Patient Discharge Plan Triage Chief Complaint: Abd Pain ED Provider: Guero Baker Dx/Rx/DC Orders Clinical Impression: Ventral hernia, Abdominal pain, Personal history of seizure disorder Instructions: Abdominal Pain, ED Hernia (Adult) Prescriptions: New oxycodone-acetaminophen [Percocet] 5-325 mg tablet 1 tab PO Q6H PRN (Reason: pain) 3 Days Qty: 12 0RF Primary Care Provider: Viola Starkey NP Referrals: Viola Starkey NP, E [employer] MARKETING ANALYST-C [Primary Care Provider, Family Practice] Activity Restrictions/Additional Instructions: Please follow-up with your surgeon as previously directed and return to the ER if you have any further concerns or worsening of symptoms Print Language: Wolof Disposition Disposition: Home, Self Care Discharge Date/Time: 03/24/25 22:43
[2025-03-24 22:32] VITALS: BP 134/96; PULSE 86; RESP 18; TEMP 36.9; O2SAT 98
== END 2025-03-24 22:43 | disposition home or self-care (01) ==
PROVIDERS: Emergency Provider Emergency Medicine; PCP Nurse Practitioner Family; Visit Provider Emergency Medicine
DX: R10.9 Unspecified abdominal pain (principal); G40.909 Epilepsy, unspecified, not intractable, without status epilepticus; K43.9 Ventral hernia without obstruction or gangrene; F17.210 Nicotine dependence, cigarettes, uncomplicated; Z90.49 Acquired absence of other specified parts of digestive tract
CPT/HCPCS: 96372; 99282

== ENCOUNTER 2025-04-17 20:18 | Emergency (ER) | payer MEDICAID, SELFPAY ==
[2025-04-17 20:20] VITALS: BP 140/95; PULSE 99; RESP 18; TEMP 36.8; O2SAT 99; BMI 43.0
--- NOTE | 2025-04-17 21:08 | EX.ED.UPPERE ---
HPI History of Present Illness HPI Narrative: 45-year-old male [id number]. Denies new past medical history. 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 Denies any fall injury or trauma. Denies any fever or chills. He is never had a surgery of this arm or any significant problem with it. Says just sore from basically his elbow and shoulder. Primarily around the tricep. Chief Complaint: Upper Extremity Injury Occured/Mechanism Mechanism/Context: No injury and No blunt trauma Onset/Context/Timing Onset: Days Context: Gradual Onset Timing: Continuous Quality of Pain: Dull and Aching Current Severity: Mild Maximum Severity: Mild Associated Symptoms Associated Symptoms: Negative for Parasthesia, Weakness or Loss of Funtion Narrative Narrative: 45-year-old male [id number] atraumatic right upper arm pain. No fall injury or trauma. No fever. No redness. No history of DVT in the past. Prior similar symptoms: No Recent Illness/Hospitalization: No PFSH PFSH Medical History Abdominal pain Seroma after procedure Influenza due to influenza virus, type A, human Contact with or suspected exposure to other viral communicable disease Sprain of left foot Left ankle sprain Strain of left knee Contusion of left knee Seizures Home Medications ?Medication ?Instructions ?Recorded ?Last Taken ?Type NK 04/17/25 Unknown History Allergy/AdvReac Type Severity Reaction Status Date / Time adhesive tape Allergy Hives Verified 04/17/25 20:20 cephalexin monohydrate (From Allergy Anaphylaxis Verified 04/17/25 20:20 Keflex) levetiracetam (From Keppra) Allergy Hives Verified 04/17/25 20:20 morphine Allergy Shortness Verified 04/17/25 20:20 of breath naproxen (From Naprosyn) Allergy Hives Verified 04/17/25 20:20 Family History Grandmother Arthritis Mother Arthritis Seizures Father Colon cancer Diabetes Brother Heart disease Surgical History H/O hernia repair History of appendectomy Social History household members: spouse Smoking Status: Current every day smoker tobacco type: cigarettes alcohol intake: never ROS ROS ED ROS Narrative Denies recent illness. Constitutional Constitutional ED: Denies chills or fever(s) Eyes Eyes: Denies blurry vision ENT ENT ED: Denies ear pain Cardiovascular Cardiovascular: Denies chest pain Respiratory/Chest Respiratory/Chest: Denies cough Gastrointestinal Gastrointestinal: Denies abdominal pain, nausea or vomiting Genitourinary Genitourinary ED: Denies dysuria or hematuria Musculoskeletal Musculoskeletal: Denies back pain or myalgias Integumentary Denies abscess or Abrasions Neurologic Neurologic: Denies headache(s) Psychiatric Psychiatric: Denies anxiety or depression Endocrine Endocrinology: Denies cold intolerance or heat intolerance Hematologic/Lymphatic Hematologic/Lymphatic: Denies easy bleeding or easy bruising Allergic/Immunologic Allergic/Immunologic ED: Denies mouth swelling, tongue swelling or urticaria EXAM Physical Exam Narrative Exam Narrative: 45-year-old male sitting upright in bed vital signs are stable afebrile. No acute distress. Pulse ox 99% on room air no signs of hypoxia. H EENT exam pupils round react to light. Moist mutes membranes. Neck nontender. No lymphadenopathy. No JVD. Back nontender. Lungs clear to auscultation bilaterally. Heart regular rate and rhythm no murmur rate about 95. Chest wall ribs nontender. Abdomen soft nontender. Moving all 4 extremities. Neurovascularly intact. Specifically right hand normal ic designer custom strength 5 out of 5 normal touch sensation. Normal radial pulse. Normal flexion extension of his hand and wrist. Normal full flexion extension of his right elbow and range of motion of his right shoulder. He has tenderness along the right lateral upper arm and tricep. There is no deficit. He has full flexion extension of the elbow. There is no axillary lymphadenopathy. There is no redness or signs of trauma. There is no cords or edema. No discoloration of the skin. Neurologically he is awake alert. Answering questions following commands. Const Vital Signs: 04/17/25 20:20 Temperature 98.3 F Temperature Source Temporal Pulse Rate 99 Respiratory Rate 18 Blood Pressure 140/95 H Blood Pressure Mean 110 Pulse Ox 99 Oxygen Delivery Method Room Air MDM MDM MDM Narrative Medical decision making narrative: 45-year-old male with atraumatic right upper arm discomfort. Hands neurovascularly intact with normal strength, sensation and radial pulse. X-ray will be obtained. This might be from overuse syndrome. Clinically I do not think it is a blood clot he is got no edema it and there is no cord. I do not think it is infected because there is no axillary lymphadenopathy or cellulitis. Repeat exam around 9:44 PM unchanged. I think this is musculoskeletal in etiology. Ice. Rest. Motrin and Tylenol. Follow-up if not improving return if worse. History & Record Review Discussion w/independent historian: Patient Additional record(s) reviewed:: Prior outpatient record Radiography Diagnostic Testing: Right humerus x-ray, 3 views, interpreted by myself shows no acute abnormality. No fracture no dislocation. No significant soft tissue swelling. Discharge Plan Triage Chief Complaint: Upper Extremity Injury ED Provider: Justin Cordero Dx/Rx/DC Orders Clinical Impression: Arm pain, Acute myofascial strain Instructions: ED Muscle Strain, Extremity Prescriptions: No Action NK Primary Care Provider: Viola Starkey NP Referrals: Viola Starkey NP, VENUE ATTENDANT-C [Primary Care Provider, [facility]] - 3-5 Days if not improving Activity Restrictions/Additional Instructions: Motrin for pain and inflammation and Tylenol for pain. Ice to the arm and rested. This should progressively get better I think you just strained the muscles. If this is not improving follow-up for further evaluation. If is getting a lot worse return to the emergency department. Currently there is no signs of infection. Your x-ray was normal. Print Language: Romanian Disposition Disposition: Home, Self Care
--- NOTE | 2025-04-17 21:10 | RAD_ITS ---
PROCEDURE: RAD/Humerus min 2 Views
[2025-04-17 21:51] VITALS: BP 140/96; PULSE 93; RESP 18; TEMP 36.6; O2SAT 97
== END 2025-04-17 21:52 | disposition home or self-care (01) ==
PROVIDERS: Emergency Provider Emergency Medicine; PCP Nurse Practitioner Family; Visit Provider Emergency Medicine
DX: S46.911A Strain of unspecified muscle, fascia and tendon at shoulder and upper arm level, right arm, initial encounter (principal); F17.210 Nicotine dependence, cigarettes, uncomplicated; Z90.49 Acquired absence of other specified parts of digestive tract
CPT/HCPCS: 73060; 99282

== ENCOUNTER 2025-04-24 18:56 | Emergency (ER) | payer MEDICAID, SELFPAY ==
[2025-04-24 18:57] VITALS: BP 142/94; PULSE 96; RESP 16; TEMP 36.8; O2SAT 99; BMI 43.5
--- NOTE | 2025-04-24 19:41 | CT_ITS ---
PROCEDURE: CT/Abdomen/Pelvis W IV Cont ONLY
[2025-04-24] MEDS: 0.9% Normal Saline (1000mL) 1,000 ML 999 ML IV (19:51)
[2025-04-24 20:01] LABS: Hematocrit 44.6 % (40-54); Hemoglobin 15.4 g/dL (13.0-16.5); Immature Granulocytes Count 0.020 X10^3/uL (0.0-0.0); Mean Corp Hgb Conc 34.5 g/dL (32-36); Mean Corpuscular Volume 90.5 fL (80-94); Mean Platelet Vol. 9.5 fl (6.2-12.0); NRBC Flagged by Analyzer 0 % (0-5); Platelet Count 304 K/mm3 (150-450); RBC Distribution Width CV 11.9 % (11.6-14.6); RBC Distribution Width SD 39.0 fl (35.1-43.9); Red Blood Count 4.93 M/mm3 (4.6-6.2); White Blood Count 10.6 K/mm3 (4.4-11.0)
--- NOTE | 2025-04-24 20:05 | EX.ED.DYSGE1 ---
HPI History of Present Illness Chief Complaint: Abd Pain Narrative Narrative: Chief complaint and HPI: 45-year-old male with known history of ventral hernia presents for evaluation of pain in his ventral hernia. Patient states that he was supposed to follow-up with a surgeon at [facility] however his insurance was wrong and therefore he did not see the surgeon. He states for the past several days he has been having increased pain in his ventral hernia. He denies any fever, chills, nausea, vomiting, diarrhea, constipation. Review of systems: See HPI Medications: As listed on the chart Allergies: As listed on the chart PFSH: Per chart Vital signs: As listed on the chart. Reviewed. Physical exam: Gen: A&O x3, NAD Head: Normocephalic, atraumatic Eyes: No sclera icterus, conjunctiva clear ENT: Moist mucous membranes CV: RRR, no murmurs Resp: Lungs CTA BL, no w/r/c GI: Abd soft, non-distended, mildly tender to palpation in his ventral hernia otherwise nontender-no overlying skin changes, no r/r Musc: Full ROM, no deformity Skin: Warm, dry Neuro: Alert, oriented, grossly intact, sensation intact Psych: Cooperative, appropriate mood and affect [facility] Medical History Abdominal pain Seroma after procedure Influenza due to influenza virus, type A, human Contact with or suspected exposure to other viral communicable disease Sprain of left foot Left ankle sprain Strain of left knee Contusion of left knee Seizures Home Medications ?Medication ?Instructions ?Recorded ?Last Taken ?Type NK 04/17/25 Unknown History Allergy/AdvReac Type Severity Reaction Status Date / Time adhesive tape Allergy Hives Verified 04/24/25 18:58 cephalexin monohydrate (From Allergy Anaphylaxis Verified 04/24/25 18:58 Keflex) levetiracetam (From Keppra) Allergy Hives Verified 04/24/25 18:58 morphine Allergy Shortness Verified 04/24/25 18:58 of breath naproxen (From Naprosyn) Allergy Hives Verified 04/24/25 18:58 Family History Grandmother Arthritis Mother Arthritis Seizures Father Colon cancer Diabetes Brother Heart disease Surgical History H/O hernia repair History of appendectomy Social History household members: spouse Smoking Status: Current every day smoker tobacco type: cigarettes and e-cigarettes alcohol intake: never EXAM Physical Exam Const Vital Signs: 04/24/25 18:57 04/24/25 21:06 Temperature 98.2 F Temperature Source Oral Pulse Rate 96 88 Respiratory Rate 16 16 Blood Pressure 142/94 H 116/78 Blood Pressure Mean 110 90 Pulse Ox 99 98 Oxygen Delivery Method Room Air Room Air MDM MDM MDM Narrative Medical decision making narrative: 45-year-old male with known history of ventral hernia presents for evaluation of pain in his ventral hernia. Patient states that he was supposed to follow-up with a surgeon at [facility] however his insurance was wrong and therefore he did not see the surgeon. He states for the past several days he has been having increased pain in his ventral hernia. He denies any fever, chills, nausea, vomiting, diarrhea, constipation. On presentation, patient no acute distress. NS bolus, Zofran, Toradol ordered for symptoms. Differential diagnosis includes but is not limited to symptomatic hernia, incarcerated hernia, strangulated hernia. Laboratory workup ordered including CT abdomen pelvis. CBC unremarkable without leukocytosis or anemia. BMP unremarkable. Lactic acid unremarkable. CT abdomen pelvis shows unchanged moderate broad-based fat-containing periumbilical ventral abdominal wall hernia without evidence of incarceration or strangulation. No other acute findings. At this point in time, no emergent need for surgery however patient would likely benefit from elective repair given his recurrent pain. Recommend following up with general surgery. Tylenol Motrin as needed for pain. Return precautions explained. He can understand the plan. Patient discharged. Impression: 1. Symptomatic ventral hernia Lab Data Labs: Laboratory Results - last 24 hr 04/24/25 19:50 WBC 10.6 RBC 4.93 Hgb 15.4 Hct 44.6 MCV 90.5 MCH 31.2 MCHC 34.5 RDW Std Deviation 39.0 RDW Coeff of Nory 11.9 Plt Count 304 MPV 9.5 Immature Gran % (Auto) 0.200 Neut % (Auto) 58.8 Lymph % (Auto) 31.8 Island % (Auto) 6.1 Eos % (Auto) 2.2 Baso % (Auto) 0.9 Absolute Neuts (auto) 6.2 Absolute Lymphs (auto) 3.38 Nucleated RBC % 0 Sodium 136 Potassium 4.2 Chloride 104 Carbon Dioxide 22.3 Anion Gap 10 BUN 8 Creatinine 0.70 Estim Creat Clear Calc 206.70 Est GFR (MDRD) Non-Af 115 BUN/Creatinine Ratio 12.1 Glucose 114 H Lactic Acid 1.7 Calcium 8.6 Radiography Diagnostic Testing: Clinical Impression(s) from Imaging Studies Abdomen/Pelvis CT 04/24/25 19:41 IMPRESSION: Unchanged moderate broad-based fat containing periumbilical ventral abdominal wall hernia without evidence for incarceration/strangulation. No other acute findings. Reading Location: [id number] Discharge Plan Triage Chief Complaint: Abd Pain ED Provider: Jean Mejía Dx/Rx/DC Orders Clinical Impression: Ventral hernia Instructions: ED Hernia (Adult) Prescriptions: No Action NK Primary Care Provider: Viola Starkey NP Referrals: Jeramy Plascencia MD [Med Staff - Active Staff, General Surgery] - 3-5 Days Viola Starkey NP, LA[employer] MACHINE TENDER-C [Primary Care Provider, Family Practice] - 3-5 Days Activity Restrictions/Additional Instructions: Follow-up with general surgery. Return back to ED symptoms change or worsen. Motrin and Tylenol as needed for pain. Print Language: Pashto Disposition Disposition: Home, Self Care
[2025-04-24 20:16] LABS: Anion Gap 10 (5-15); BUN 8 mg/dL (4-19); BUN/Creat Ratio 12.1 RATIO (10-20); Calcium,Total 8.6 mg/dL (7.6-11.0); Carbon Dioxide 22.3 mmol/L (21.0-32.0); Chloride 104 mmol/L (98-108); Estimated Creatinine Clearance 206.70 ml/min (50-250); Glucose 114 mg/dL (70-99); Potassium 4.2 mmol/L (3.3-5.1)
[2025-04-24 21:06] VITALS: BP 116/78; PULSE 88; RESP 16; O2SAT 98
[2025-04-24 22:43] VITALS: BP 118/86; PULSE 75; RESP 16; TEMP 36.8; O2SAT 99
== END 2025-04-24 22:44 | disposition home or self-care (01) ==
PROVIDERS: Emergency Provider Surgery; PCP Nurse Practitioner Family; Visit Provider Surgery
DX: R10.9 Unspecified abdominal pain (principal); K43.9 Ventral hernia without obstruction or gangrene; F17.210 Nicotine dependence, cigarettes, uncomplicated; Z90.49 Acquired absence of other specified parts of digestive tract; F17.290 Nicotine dependence, other tobacco product, uncomplicated
CPT/HCPCS: 74177; 80048; 83605; 85025; 96361; 96374; 96375; 99284; Q9967; A4216; J2405

== ENCOUNTER 2025-05-08 21:20 | Emergency (ER) | payer MEDICAID, SELFPAY ==
[2025-05-08 21:21] VITALS: BP 127/90; PULSE 98; RESP 18; TEMP 36.6; O2SAT 97; BMI 44.0
[2025-05-08 21:54] VITALS: BP 127/90; PULSE 98; RESP 18; TEMP 36.6; O2SAT 97
--- OUTSIDE RECORDS SUMMARY | 2025-05-08 21:55 | XMS RPT_ITS | CCD ---
Author Organization [facility] Care Team Providers Care Stitch Burnisher Name Role Phone JOSH HELTON Unavailable Unavailable [...] Primary Care Unavailable JOSELUIS MAIER Attending Unavailab guadalupe No, Pcp Primary Care Provider Unavailabl e [...] Un available Dr. Jeffery Weber Attending Provider [phone] Leydi Martin MD Primary Care Provider Jeffery Weber MD Unavailable LALITO MCCARTY-BERT, VIOLA Devang Primary Care Physician Baljeet JEONG, Leydi Primary Care Provider [phone] JALEEL PLATA, TOI Attending Unavailable PHYSICIAN, NONE Primary Care Unavailable [employer] MINER-PUBLIC RELATIONS ANALYST, VIOLA L Primary Care UnavaREYES Banerjee DO Attending Unavailable PAUL DOBSON Attending Unavailable [...] DAVONTE ONEILL MD Attending Unavail able LALITO GIRALDON-PUBLIC RELATIONS ANALYST, VIOLA Primary Care Unavai lable JALEEL PLATA, TOI Attending Unavailable PHYSICIAN, NONE Primary Care Unavailable DR LEDY REESE MD, V Attending Unavai lable PHYSICIAN, NONE Primary Care Unavailable BEFFATRINIDAD Referring Unava ilable [...] Primary Care Unavailable VICKI MERAZ Attending Unavailable BEFFA, TRINIDAD DARBY Attending Unava ilable GANTA, LEYDI Primary Care Unavailable Unavailable Primary Care Provider UnavailJonathan Randolph MD Unavailable Jonathan Gonzalez MD Unavailable Care Physician, No Primary Primary Care Provider Unavailable Dr. Cristian Guadalupe DO Emergency Provider Holly PLATA, Dr. Foster Attending Provider Starkey INSTRUMENT PROCESSING TECH-C, [facility] Primary Care Provider Joel JEONG, Brian Referring Provider oJel JEONG, Brian Emergency Provider Joel JEONG, Brian Attending Provider Jimbo JEONG, Dr. Waterman Emergency Provider Samuel PLATA, Dr. Jack Emergency Provider Lalito INSTRUMENT PROCESSING TECH-C, [facility] Primary Care Provider Jimbo JEONG, Dr. Waterman Attending Provider Samuel PLATA, Dr. Jack Attending Provider Gil JEONG, Dr. Anderson Emergency Provider Starkey INSTRUMENT PROCESSING TECH-C, [facility] Primary Care Provider Gil JEONG, Dr. Anderson Attending Provider [phone] Darrion PLATA, Dr. Skaggs Emergency Provider [employer] MINER-PUBLIC RELATIONS ANALYST, VIOLA L Primary Care Physician VIOLA STARKEY Primary Care Unavailable MACEY ISAACS Attending Unavailable [employer] MINER-PUBLIC RELATIONS ANALYST, VIOLA L Primary Care Unavai lable DURESKA DOSHANIKA Attending Unavailable [employer] MINER-PUBLIC RELATIONS ANALYST, VIOLA L Primary Care Unavai lable CHOUJAA DO, RADHA Attending Unavailable VALERIA JEONG, BLANCO Almonte Attending Unavailable VALERIA JEONG, BLANCO Almonte Referring Unavailable [employer] MINER-PUBLIC RELATIONS ANALYST, VIOLA L Primary Care Unavai lable [employer] MINER-PUBLIC RELATIONS ANALYST, VIOLA L Primary Care Unavai lable [employer] MINER-PUBLIC RELATIONS ANALYST, VIOLA L Attending Unavai lable Starkey INSTRUMENT PROCESSING TECH-C, [facility] Primary Care Physician [phone] Jimbo JEONG, Dr. Waterman Attending Physician Dr. Guevara Choi MD Emergency Department Phys ician Dr. Guero Baker DO Attending Physician Samuel PLATA, Dr. Jack Emergency Department Physic anshu Gil JEONG, Dr. Anderson Attending Physician Gil JEONG, Dr. Anderson Emergency Department Physici an Darrion PLATA, Dr. Skaggs Attending Physician Darrion PLATA, Dr. Skaggs Emergency Department Physi nora Lalito INSTRUMENT PROCESSING TECH-C, Viola Primary Care Physician [phone] Samuel PLATA, Dr. Jack Attending Physician Samuel PLATA, Dr. Jack Emergency Department Physic anshu Starkey INSTRUMENT PROCESSING TECH, Viola Primary Care Unavailable Joseluis Maier Attending Unavailable Guero Baker Attending Unavailable Starkey INSTRUMENT PROCESSING TECH, Viola Primary Care Unavailable Starkey INSTRUMENT PROCESSING TECH, Viola Primary Care Unavailable Justin Cordero Attending Unavailable Starkey INSTRUMENT PROCESSING TECH, Viola Primary Care Unavailable Jean Mejía Attending Unavailabl e Guero Baker Attending Unavailable Starkey INSTRUMENT PROCESSING TECH, Viola Primary Care Unavailable Starkey INSTRUMENT PROCESSING TECH, Viola Referring Unavailable Starkey INSTRUMENT PROCESSING TECH, Viola Primary Care Unavailable Jeramy Plascencia Attending Unavailable Guero Baker Attending Unavailable Starkey INSTRUMENT PROCESSING TECH, Viola Primary Care Unavailable Starkey INSTRUMENT PROCESSING TECH, Viola Primary Care Unavailable Cristian Guadalupe Attending Unavailable Starkey INSTRUMENT PROCESSING TECH, Viola Primary Care Unavailable Brian Maldonado Attending Unavailable Reodica, Brian Referring Unavailable Starkey INSTRUMENT PROCESSING TECH, Viola Primary Care Unavailable Guevara Choi Attending Unavailable Starkey INSTRUMENT PROCESSING TECH, Viola Primary Care Unavailable Guero Baker Attending Unavailable Justin Cordero Attending Unavailable Starkey INSTRUMENT PROCESSING TECH, Viola Primary Care Unavailable Guero Baker Attending Unavailable Starkey INSTRUMENT PROCESSING TECH, Viola Primary Care Unavailable Allergies Allergy Classification Reported Allergen(s) Allergy Type Date of Onset Reaction(s) Facility (20 sources) Cephalexin; Translations: [cephalexin] Drug Allergy 11-13-19 17 [facility] (20 sources) levETIRAcetam; Translations: [levetiracetam] Drug Allergy 10-24-19 17 [facility] (20 sources) Morphine; Translations: [morphine] Drug Allergy 10-24-19 17 Anaphylaxis, Rash [facility] (20 sources) Naproxen; Translations: [naproxen] Drug Allergy 07-08-19 18 [facility] (20 sources) Tape, Paper Propensity to adverse reactions to substance Rash [facility] (14 sources) Cephalexin; Translations: [cephalexin monohydrate] Drug Allergy 09-24-[address] [facility] (2 sources) PAPER TAPE; Translations: [PAPER TAPE] Allergy to substance 09-24-19 [facility] (10 sources) Adhesive Tape-Silicones; Translations: [ADHESIVE TAPE-SILICONES] Drug Allergy 10-24-19 [facility] (15 sources) Adhesive Tape Propensity to adverse reactions to drug 03-08-20 [facility] Comment on above: PAPER TAPE (1 source) levETIRAcetam Drug Allergy [facility] Repository (1 source) Morphine Drug Allergy [facility] (1 source) Naproxen Drug Allergy [facility] (2 sources) Levetiracetam Allergy to substance 10-24-19 [facility] (2 sources) Wound Dressing Adhesive Drug Intolerance 03-08-20 [facility] (1 source) Adhesive agent Drug Intolerance 03-08-20 22 [facility] (1 source) Adhesive Tape Drug allergy (disorder) 04-24-20 [facility] (1 source) levETIRAcetam Drug Allergy 04-24-20 [facility] (1 source) Morphine Drug Allergy 04-24-20 [facility] (1 source) Naproxen Drug Allergy 04-24-20 [facility] Medications Current Medications Medication Drug [...] oral tablet (20 sources) Opioid Agonist Start: 03-24-2025 take 1 tablet by mouth every six hours as needed for pain Start: 01-26-2025 End: 02-27-2025 Oxycodone-Acetaminophen (Per cocet) 5-325 mg tablet Discontinued 1 {tbl} PO [...] 2 TABLET PO EVERY 6 HOURS NEEDED 25 5 September 24, 2018 11:00pm September 29, 2018 11:07pm [...] 2016 11:00pm take 1 capsule by mo [facility] three times daily gabapentin (NEURONTIN) 100 MG capsule Take 100 mg by mouth 3 times daily. 0 Active Comment on above: Take 1 capsule by mo [facility] three times daily for 90 days. Take 1 capsule by mo [facility] three times a day for 90 days. [place] (Nk) (5 sources) Start: 03-07-2025 [place] (Nk) Active March 07, 2025 12:00am Start: 09-19-2024 [place] (Nk) A ctive September 19, 2024 12:00am sulfamethoxazole 800 mg / trimethoprim 160 mg [...] June 01, 2023 Start: 07-18-2022 End: 07-25-2022 [place] 325- 5 mg oral tablet Dose = 1 tab(s), Oral, q4h, PRN Pain, scale 4-6, X 7 day(s), # 28 tab(s), 0 Refill(s), Pharmacy: [id number], Acute post-operative pain, 188, cm, 07/18/22 7:07:00 [...] PO EVERY 6 HOURS NEEDED 12 3 July 03, 2023 Start: 12-21-2021 End: 12-24-2021 take 1 tablet by mouth every six hours as needed for pain [place] 325- 5 mg oral tablet Dose = 1 tab(s), Oral, q6h, PRN as needed for pain, X 3 day(s), # 12 tab(s), 0 Refill(s), Hematoma, 134 Start Date: 12/21/21 Stop Date: 12/24/21 Status: Ordered Start: 11-30-2021 End: 12-03-2021 take 1 tablet by mouth every six hours as needed for pain [place] 325- 5 mg oral tablet Dose = 1 tab(s), Oral, q6h, PRN As needed for severe pain, X 3 day(s), # 12 tab(s), 0 Refill(s), Postoperative abdominal pain, 141.1 Start Date: 11/30/21 Stop Date: 12/03/21 Status: Ordered Start: 10-06-2021 End: 10-09-2021 take 1 tablet by mouth every six hours [place] 325- 5 mg oral tablet Dose = 1 tab(s), Oral, q6h, # 12 tab(s), 0 Refill(s), Umbilical hernia, 146.5 Start Date: 10/06/21 Stop Date: 10/09/21 Status: Ordered benzonatate 100 mg oral capsule (12 sources) Non-narcotic Antitussive Start: 05-28-2022 End: 09-19-2024 [...] 2022 12:00am ibuprofen 600 mg oral tablet (20 sources) Nonsteroidal Anti-inflammatory Drug Start: 02-25-2024 End: [...] above: Take 1 tablet by hien th once daily. for pain. Take with food. [...] on above: As Instructed per eric padilla ondansetron 4 mg disintegrating oral tablet (7 sources) Serotonin-3 Receptor Antagonist Start: End: 5 take 1 tablet by mouth every eight hours as needed for nausea Ondansetron 4 mg tablet,disintegratin g Discontinued 4 mg PO EVERY 8 HOURS NEEDED as needed for Nausea 10 February 27, 2025 12:00am March 07, 2025 10:43pm Start: 08-01-2022 take 1 tablet by hien th every eight hours as needed for nausea and vomiting ondansetron 4 mg oral tablet TAKE 1 TAB(S) ORAL EVERY 8 HOURS NEEDED FOR NAUSEA AND VOMITING Start Date: 08/01/22 Status: Ordered oxyCODONE hydrochloride 5 mg oral tablet (3 sources) Opioid Agonist Start: 02-27-2025 End: 03-07-2025 take 1 tablet by mouth every six hours as needed for pain Oxycodone 5 mg tablet Discontinued 5 mg PO EVERY 6 HOURS as needed for pain 12 3 February 27, 2025 March 07, 2025 10:43pm Abdominal pain Unspecified abdominal pain predniSONE 20 mg oral tablet (10 sources) Start: 08-24-2024 End: 09-19-2024 take 3 tablets by mouth once daily [...] abdominal pain] Onset: 2 Episodic Allergic reactions (8 sources) Allergy status to other antibiotic agents status; Translations: [Allergy status to narcotic agent status] Onset: 2 Episodic Complication of device; implant or graft (18 sources) Infected hernioplasty mesh; Translations: [Infection and inflammatory reaction due to other internal prosthetic devices, implants and grafts, initial encounter] Onset: 4 07-04-2023 Episodic Complications of surgical procedures or medical care (20 sources) Postoperative hematoma formation; Translations: [Postoperative hematoma] 12-13-2021 Episodic E Codes: Fall (9 sources) Fall from ladder; Translations: [Fall on and from ladder, initial encounter] 09-19-2024 Episodic E Codes: Fall (20 sources) Fall 09-05-2017 Epilepsy; convulsions (2 sources) Seizure disorder; Translations: [Epilepsy, unspecified, intractable, without status epilepticus] 03-08-2025 Chronic Epilepsy; convulsions (20 sources) Seizure; Translations: [Post traumatic seizures] Onset: 7 09-09-2013 Episodic Esophageal disorders (20 sources) Gastroesophageal reflux disease 09-09-2013 Chronic Essential hypertension (8 sources) Hypertensive disorder; Translations: [Essential (primary) hypertension] 12-17-2024 Chronic Fluid and electrolyte disorders (1 source) Hypo-osmolality and or hyponatremia; Translations: [Hypo-osmolality and hyponatremia] Onset: 3 Episodic Headache; including migraine (2 sources) Headache; including migraine; Translations: [Headache, unspecified] Onset: 2 Immunizations and screening for infectious disease (12 sources) Contact with and (suspected) exposure to other viral communicable diseases; Translations: [Contact with or suspected exposure to other viral communicable disease] 06-12-2023 Episodic Influenza (12 sources) Influenza due to Influenza A virus; [...] 09-08-2024 Episodic Other aftercare (2 sources) Other care home (current) drug therapy; Translations: [Other assistant terminal manager (current) drug therapy] Onset: 2 Episodic Other bone disease and musculoskeletal deformities (9 sources) Clavicle pain; Translations: [Other specified disorders of bone, shoulder] 09-19-2024 Episodic Other connective tissue disease (10 sources) Tendinitis of long head of biceps [...] injuries and conditions due to external causes (10 sources) Injury of right shoulder; Translations: [Unspecified injury of right shoulder and upper arm, initial encounter] 08-24-2024 Episodic Other lower respiratory disease (1 source) Cough; Translations: [Cough, unspecified] Onset: 2 Episodic Other nervous system disorders (14 sources) Postoperative pain ; Translations: [Other acute postprocedural pain] Onset: 3 Episodic Other nervous system disorders (1 source) H/O: epilepsy; Translations: [Personal history of other diseases of the nervous system and sense organs] 04-01-2025 Episodic Other non-traumatic joint disorders (1 source) [...] of colon 08-20-2023 Episodic Residual codes; unclassified (12 sources) Tobacco use and exposure - finding; Translations: [Tobacco use] Onset: 4 09-16-2023 Episodic Residual codes; unclassified (1 source) Tobacco use; Translations: [Tobacco use] Onset: 4 Episodic Sprains and strains (20 sources) Strain of knee; Translations: [Strain of unspecified muscle(s) and tendon(s) at lower leg level, left leg, initial encounter] Onset: 2 Episodic Substance-related disorders (3 sources) Nicotine dependence, unspecified, uncomplicated; Translations: [Nicotine dependence, cigarettes, uncomplicated] Onset: 2 Chronic Transient cerebral ischemia (20 sources) Transient cerebral [...] [Pain in right shoulder] Onset: 04-25-2022 Episodic Superficial injury; contusion (20 sources) Contusion of knee; Translations: [Contusion of left knee, initial encounter] Onset: 05-16-2023 Episodic Unclassified (1 source) HERNIA//HERNIA, UMBILICAL Onset: 12-16-2016 Results Test Name Value Interpretation Reference Range Facility Abdomen/Pelvis W IV Cont ONL Yon 04-24-2025 Abdomen/Pelvis W IV Cont ONLY [facility] [address] [place] [id number] Abdomen/Pelvis W IV Cont ONLY MR#: [id number] Acct: [id number] Name: PATRICK KOROMA Rep #: [id number] : 1980 M 45 From: Mike Box MD PCP: Viola Starkey NP-Marielos Status: REG ER Study: Abdomen/Pelvis W IV Cont ONLY Date of Exam: Exam# [id number] Ordering Dr: Jean Mejía DO PROCEDURE: CT ABDOMEN/PELVIS W IV CONT ONLY 04/24/2025 REASON FOR EXAM: VENTRAL HERNIA PAIN TECHNIQUE: Procedure Code: [id number] Modality: CT Procedure: ABDOMEN/PELVIS W IV CONT ONLY Coronal and Sagittal reconstruction series were provided. CONTRAST: Isovue 370 VOLUME: 92 mL One or more dose reduction techniques were used (e.g., Automated exposure control, adjustment of the mA and/or kV according to patient size, use of iterative reconstruction technique. RADIATION DOSE SUMMARY: DLP: 1456.8 mGycm COMPARISON: 02/27/2025 FINDINGS: Lung bases: Clear. Liver: Mild diffuse hepatic steatosis. Gallbladder: Unremarkable. Spleen: Unremarkable Pancreas: Unremarkable. Adrenals: Unremarkable Kidneys: Unremarkable. No urolithiasis or hydronephrosis. Bladder: Unremarkable. Reproductive Organs: Nonenlarged prostate. Small bilateral fat containing inguinal hernias. Bowel: No evidence of obstruction or active inflammation. Prior appendectomy. Lymph nodes: No suspicious lymph node enlargement. Vasculature: Normal caliber abdominal aorta. Scant atherosclerotic calcifications. Peritoneum / Retroperitoneum: No ascites or free air. Musculoskeletal: Postoperative scarring along the anterior abdominal wall with unchanged moderate broad-based fat containing periumbilical hernia. No evidence of fat strangulation/incarce ration. No herniated bowel loops. 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 CT/Abdomen/Pelvis W IV Cont ONLY IMPRESSION: Unchanged moderate broad-based fat containing periumbilical ventral abdominal wall hernia without evidence for incarceration/strangu lation. No other acute findings. Reading Location: [id number] CC: ERIC Starkey; Dr. Jean Mejía DO Motorcycle Subassembler: Signed Normal [facility] Basic Metabolic Profile (BMP )on 04-24-2025 BUN/CRE 12.1 RATIO Normal 10-20 [facility] Comment on above: Performed By: #### L 503.6005, L100.0100, L500.2500 ####[facility] [address] [place], [address] Calcium [Mass/Vol] 8.6 mg/dL Normal 7.6-11.0 [facility] Comment on above: Performed By: #### L 503.6005, L100.0100, L500.2500 ####[facility] [address] [place], [address] Chloride [Moles/Vol] 104 mmol/L Normal 98-108 [facility] Comment on above: Performed By: #### L 503.6005, L100.0100, L500.2500 ####[facility] [address] [place], [address] CO2 [Moles/Vol] 22.3 mmol/L Normal 21.0-32.0 [facility] Comment on above: Performed By: #### L 503.6005, L100.0100, L500.2500 ####[facility] [address] [place], [address] Creatinine [Mass/Vol] 0.70 mg/dL Normal 0.70-1.20 [facility] Comment on above: Performed By: #### L 503.6005, L100.0100, L500.2500 ####[facility] [address] [place], [address] ECRCL 206.70 ml/min Normal 50-250 [facility] Comment on above: Performed By: #### L 503.6005, L100.0100, L500.2500 ####[facility] [address] [place], [address] GAP 10 Normal 5-15 [facility] Comment on above: Performed By: #### L 503.6005, L100.0100, L500.2500 ####[facility] [address] [place], [address] GFR/1.73 sq M.predicted among non-blacks MDRD (S/P/Bld) [Vol rate/Area] 115 mL/min/{1.73_m2} Normal >60 [facility] Comment on above: Result Comment: mL/m in/1.73m2 CKD-EPI Creatinine Equation (2020) Performed By: #### L 503.6005, L100.0100, L500.2500 ####[facility] [address] [place], [address] Glucose [Mass/Vol] 114 mg/dL High 70-99 [facility] Comment on above: Performed By: #### L 503.6005, L100.0100, L500.2500 ####[facility] [address] [place], [address] Potassium [Moles/Vol] 4.2 mmol/L Normal 3.3-5.1 [facility] Comment on above: Performed By: #### L 503.6005, L100.0100, L500.2500 ####[facility] [address] [place], [address] Sodium [Moles/Vol] 136 mmol/L Normal 133-145 [facility] Comment on above: Performed By: #### L 503.6005, L100.0100, L500.2500 ####[facility] [address] [place], [address] Urea nitrogen [Mass/Vol] 8 mg/dL Normal 4-19 [facility] Comment on above: Performed By: #### L 503.6005, L100.0100, L500.2500 ####[facility] [address] [place], [address] CBC W/Diff, Automatedon 11-0 9 Absolute Lymph 3.38 X10 3/uL Normal 0.83-4.51 [facility] Comment on above: Performed By: #### L 503.6005, L100.0100, L500.2500 ####[facility] [address] [place], [address] Absolute Neut 6.2 X10 3/uL Normal 2.0-7.7 [facility] Comment on above: Performed By: #### L 503.6005, L100.0100, L500.2500 ####[facility] [address] [place], [address] Basophils/100 WBC (Bld) 0.9 % Normal 0-1 [facility] Comment on above: Performed By: #### L 503.6005, L100.0100, L500.2500 ####[facility] [address] [place], [address] Eosinophils/100 WBC (Bld) 2.2 % Normal 0-5 [facility] Comment on above: Performed By: #### L 503.6005, L100.0100, L500.2500 ####[facility] [address] [place], [address] Erythrocyte distribution width (RBC) [Ratio] 11.9 % Normal 11.6-14.6 [facility] Comment on above: Performed By: #### L 503.6005, L100.0100, L500.2500 ####[facility] [address] [place], [address] Hematocrit (Bld) [Volume fraction] 44.6 % Normal 40-54 [facility] Comment on above: Performed By: #### L 503.6005, L100.0100, L500.2500 ####[facility] [address] [place], [address] Hemoglobin (Bld) [Mass/Vol] 15.4 g/dL Normal 13.0-16.5 [facility] Comment on above: Performed By: #### L 503.6005, L100.0100, L500.2500 ####[facility] [address] [place], [address] IG% 0.200 Normal 0.0-0.9 [facility] Comment on above: Result Comment: IG% - Immature Granulocytes (promyelocytes, myelocytes and metamyelocytes) > 1% indicates that a LEFT SHIFT is Present. Performed By: #### L 503.6005, L100.0100, L500.2500 ####[facility] [address] [place], [address] Lymphocytes/100 WBC (Bld) 31.8 % Normal 19-41 [facility] Comment on above: Performed By: #### L 503.6005, L100.0100, L500.2500 ####[facility] [address] [place], [address] MCH (RBC) [Entitic mass] 31.2 pg Normal 27.0-32.0 [facility] Comment on above: Performed By: #### L 503.6005, L100.0100, L500.2500 ####[facility] [address] [place], [address] MCHC (RBC) [Mass/Vol] 34.5 g/dL Normal 32-36 [facility] Comment on above: Performed By: #### L 503.6005, L100.0100, L500.2500 ####[facility] [address] [place], [address] MCV (RBC) [Entitic vol] 90.5 fL Normal 80-94 [facility] Comment on above: Performed By: #### L 503.6005, L100.0100, L500.2500 ####[facility] [address] [place], [address] Monocytes/100 WBC (Bld) 6.1 % Normal 0-10 [facility] Comment on above: Performed By: #### L 503.6005, L100.0100, L500.2500 ####[facility] [address] [place], [address] Neutrophils/100 WBC (Bld) 58.8 % Normal 47-70 [facility] Comment on above: Performed By: #### L 503.6005, L100.0100, L500.2500 ####[facility] [address] [place], [address] Nucleated RBC (Bld) [#/Vol] 0 10*3/uL Normal 0-5 [facility] Comment on above: Performed By: #### L 503.6005, L100.0100, L500.2500 ####[facility] [address] [place], [address] Platelet mean volume (Bld) [Entitic vol] 9.5 fL Normal 6.2-12.0 [facility] Comment on above: Performed By: #### L 503.6005, L100.0100, L500.2500 ####[facility] [address] [place], [address] Platelets (Bld) [#/Vol] 304 10*3/uL Normal 150-450 [facility] Comment on above: Performed By: #### L 503.6005, L100.0100, L500.2500 ####[facility] [address] [place], [address] RBC (Bld) [#/Vol] 4.93 10*6/uL Normal 4.6-6.2 [facility] Comment on above: Performed By: #### L 503.6005, L100.0100, L500.2500 ####[facility] [address] [place], [address] RDW SD 39.0 fl Normal 35.1-43.9 [facility] Comment on above: Performed By: #### L 503.6005, L100.0100, L500.2500 ####[facility] [address] [place], [address] WBC (Bld) [#/Vol] 10.6 10*3/uL Normal 4.4-11.0 [facility] Comment on above: Performed By: #### L 503.6005, L100.0100, L500.2500 ####[facility] [id number] [place], [address] Emergency Department Summary on 04-24-2025 Emergency Department Summary [facility] Medical Records Department [address] [place] [address] Emergency Department Summary 04/24/25 MR#: [id number] Acct: [id number] Name: PATRICK KOROMA Rep #: [id number] : 1980 45 From: Jean Mejía DO PCP: FREDDY AnayaC Status:REG ER Location: ED HPI History of Present Illness Chief Complaint: Abd Pain Narrative Narrative: Chief complaint and HPI: 45-year-old male with known history of ventral hernia presents for evaluation of pain in his ventral hernia. Patient states that he was supposed to follow-up with a surgeon at [facility] however his insurance was wrong and therefore he did not see the surgeon. He states for the past several days he has been having increased pain in his ventral hernia. He denies any fever, chills, nausea, vomiting, diarrhea, constipation. Review of systems: See HPI Medications: As listed on the chart Allergies: As listed on the chart PFSH: Per chart Vital signs: As listed on the chart. Reviewed. Physical exam: Gen: A O x3, NAD Head: Normocephalic, atraumatic Eyes: No sclera icterus, conjunctiva clear ENT: Moist mucous membranes CV: RRR, no murmurs Resp: Lungs CTA BL, no w/r/c GI: Abd soft, non-distended, mildly tender to palpation in his ventral hernia otherwise nontender-no overlying skin changes, no r/r Musc: Full ROM, no deformity Skin: Warm, dry Neuro: Alert, oriented, grossly intact, sensation intact Psych: Cooperative, appropriate mood and affect [facility] Medical History Abdominal pain Seroma after procedure Influenza due to influenza virus, type A, human Contact with or suspected exposure to other viral communicable disease Sprain of left foot Left ankle sprain Strain of left knee Contusion of left knee Seizures Home Medications ???Medication ???Instructions ???Recorded ???Last Taken ???Type NK 04/17/25 Unknown History Allergy/AdvReac Type Severity Reaction Status Date / Time adhesive tape Allergy Hives Verified 04/24/25 18:58 cephalexin monohydrate (From Allergy Anaphylaxis Verified 04/24/25 18:58 Keflex) levetiracetam (From Keppra) Allergy Hives Verified 04/24/25 18:58 morphine Allergy Shortness Verified 04/24/25 18:58 of breath naproxen (From Naprosyn) Allergy Hives Verified 04/24/25 18:58 Family History Grandmother Arthritis Mother Arthritis Seizures Father Colon cancer Diabetes Brother Heart disease Surgical History H/O hernia repair History of appendectomy Social History household members: spouse Smoking Status: Current every day smoker tobacco type: cigarettes and e-cigarettes alcohol intake: never EXAM Physical Exam Const Vital Signs: 04/24/25 18:57 04/24/25 21:06 Temperature 98.2 F Temperature Source Oral Pulse Rate 96 88 Respiratory Rate 16 16 Blood Pressure 142/94 H 116/78 Blood Pressure Mean 110 90 Pulse Ox 99 98 Oxygen Delivery Method Room Air Room Air MDM MDM MDM Narrative Medical decision making narrative: 45-year-old male with known history of ventral hernia presents for evaluation of pain in his ventral hernia. Patient states that he was supposed to follow-up with a surgeon at [facility] however his insurance was wrong and therefore he did not see the surgeon. He states for the past several days he has been having increased pain in his ventral hernia. He denies any fever, chills, nausea, vomiting, diarrhea, constipation. On presentation, patient no acute distress. NS bolus, Zofran, Toradol ordered for symptoms. Differential diagnosis includes but is not limited to symptomatic hernia, incarcerated hernia, strangulated hernia. Laboratory workup ordered including CT abdomen pelvis. CBC unremarkable without leukocytosis or anemia. BMP unremarkable. Lactic acid unremarkable. CT abdomen pelvis shows unchanged moderate broad-based fat-containing periumbilical ventral abdominal wall hernia without evidence of incarceration or strangulation. No other acute findings. At this point in time, no emergent need for surgery however patient would likely benefit from elective repair given his recurrent pain. Recommend following up with general surgery. Tylenol Motrin as needed for pain. Return precautions explained. He can understand the plan. Patient discharged. Impression: 1. Symptomatic ventral hernia Lab Data Labs: Laboratory Results - last 24 hr 04/24/25 19:50 WBC 10.6 RBC 4.93 Hgb 15.4 Hct 44.6 MCV 90.5 MCH 31.2 MCHC 34.5 RDW Std Deviation 39.0 RDW Coeff of Nory 11.9 Plt Count 304 (more content not included)... Normal [facility] Lactic Acidon 04-24-2025 Lactate [Moles/Vol] 1.7 mmol/L Normal 0.0-2.0 [facility] Comment on above: Order Comment: Y Performed By: #### L 503.6005, L100.0100, L500.2500 ####[facility] [id number] [facility] [place], [address] Emergency Department Summary on 04-17-2025 Emergency Department Summary [facility] Medical Records Department [address] [place] [address] Emergency Department Summary 04/17/25 MR#: [id number] Acct: [id number] Name: PATRICK KOROMA Rep #: [id number] : 1980 45 From: Justin Cordero MD PCP: ERIC Anaya Status:DEP ER Location: ED HPI History of Present Illness HPI Narrative: 45-year-old male fhnxv-cfwk-[id number]. Denies new past medical history. 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 Denies any fall injury or trauma. Denies any fever or chills. He is never had a surgery of this arm or any significant problem with it. Says just sore from basically his elbow and shoulder. Primarily around the tricep. Chief Complaint: Upper Extremity Injury Occured/Mechanism Mechanism/Context: No injury and No blunt trauma Onset/Context/Timing Onset: Days Context: Gradual Onset Timing: Continuous Quality of Pain: Dull and Aching Current Severity: Mild Maximum Severity: Mild Associated Symptoms Associated Symptoms: Negative for Parasthesia, Weakness or Loss of Funtion Narrative Narrative: 45-year-old male axtly-eprv-jhmosiae atraumatic right upper arm pain. No fall injury or trauma. No fever. No redness. No history of DVT in the past. Prior similar symptoms: No Recent Illness/[facility]ospital[facility]ati on: [facility] Medical History Abdominal pain Seroma after procedure Influenza due to influenza virus, type A, human Contact with or suspected exposure to other viral communicable disease Sprain of left foot Left ankle sprain Strain of left knee Contusion of left knee Seizures Home Medications ???Medication ???Instructions ???Recorded ???Last Taken ???Type NK 04/17/25 Unknown History Allergy/AdvReac Type Severity Reaction Status Date / Time adhesive tape Allergy Hives Verified 04/17/25 20:20 cephalexin monohydrate (From Allergy Anaphylaxis Verified 04/17/25 20:20 Keflex) levetiracetam (From Keppra) Allergy Hives Verified 04/17/25 20:20 morphine Allergy Shortness Verified 04/17/25 20:20 of breath naproxen (From Naprosyn) Allergy Hives Verified 04/17/25 20:20 Family History Grandmother Arthritis Mother Arthritis Seizures Father Colon cancer Diabetes Brother Heart disease Surgical History H/O hernia repair History of appendectomy Social History household members: spouse Smoking Status: Current every day smoker tobacco type: cigarettes alcohol intake: never ROS ROS ED ROS Narrative Denies recent illness. Constitutional Constitutional ED: Denies chills or fever(s) Eyes Eyes: Denies blurry vision ENT ENT ED: Denies ear pain Cardiovascular Cardiovascular: Denies chest pain Respiratory/Chest Respiratory/Chest: Denies cough Gastrointestinal Gastrointestinal: Denies abdominal pain, nausea or vomiting Genitourinary Genitourinary ED: Denies dysuria or hematuria Musculoskeletal Musculoskeletal: Denies back pain or myalgias Integumentary Denies abscess or Abrasions Neurologic Neurologic: Denies headache(s) Psychiatric Psychiatric: Denies anxiety or depression Endocrine Endocrinology: Denies cold intolerance or heat intolerance Hematologic/Lymphatic Hematologic/Lymphatic : Denies easy bleeding or easy bruising Allergic/Immunologic Allergic/Immunologic ED: Denies mouth swelling, tongue swelling or urticaria EXAM Physical Exam Narrative Exam Narrative: 45-year-old male sitting upright in bed vital signs are stable afebrile. No acute distress. Pulse ox 99% on room air no signs of hypoxia. H EENT exam pupils round react to light. Moist mutes membranes. Neck nontender. No lymphadenopathy. No JVD. Back nontender. Lungs clear to auscultation bilaterally. Heart regular rate and rhythm no murmur rate about 95. Chest wall ribs nontender. Abdomen soft nontender. Moving all 4 extremities. Neurovascularly intact. 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 Normal radial pulse. Normal flexion extension of his hand and wrist. Normal full flexion extension of his right elbow and range of motion of his right shoulder. He has tenderness along the right lateral upper arm and tricep. There is no deficit. He has full flexion extension of the elbow. There is no axillary lymphadenopathy. There is no redness or signs of trauma. There is no cords or edema. No discoloration of the skin. Neurologically he is awake alert. Answering questions following commands. Const Vital Signs: 04/17/25 20:20 Temperature 98.3 F Temperature Source Temporal Pulse Rate 99 Respiratory Rate 18 (more content not included)... Normal [facility] Humerus min 2 Viewson 2024 Humerus min 2 Views [facility] Imaging Services [address] [place], [place] [address] Humerus min 2 Views MR#: [id number] Acct: [id number] Name: PATRICK KOROMA Rep #: [id number] : 1980 M 45 From: Jf Sanford MD PCP: ERIC Anaya Status: DEP ER Study: Humerus min 2 Views Date of Exam: 04/17/25 Exam# [id number] Ordering Dr: Justin Cordero MD PROCEDURE: HUMERUS MIN 2 VIEWS 04/17/2025 REASON FOR EXAM: ATRAUMATIC PAIN TECHNIQUE: Procedure Code: RADHUM Modality: DX Procedure: HUMERUS MIN 2 VIEWS Laterality: Right FINDINGS: No acute fracture or dislocation. No significant bone or joint abnormality. No focal soft tissue swelling. RAD/Humerus min 2 Views IMPRESSION: As above. 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 Emergency Department Summary on 03-24-2025 Emergency Department Summary [facility] Medical Records Department [address] [place] [address] Emergency Department Summary 03/24/25 MR#: [id number] Acct: [id number] Name: PATRICK KOROMA Rep #: [id number] : 1980 45 From: Guero Baker DO PCP: ERIC Anaya Status:DEP ER Location: ED HPI History of Present Illness Chief Complaint: Abd Pain Informant: patient Narrative Narrative: Patient is a 45-year-old male with known history of a ventral hernia. He states that he has been doing well and today was at work when he was asked to move a propane tank. He states the tank was small and not extremely heavy. He reports after lifting it however he developed pain in the upper abdomen. He states that there has been no fevers or chills nausea or vomiting. He reports he took tlna-qno-naqmchm medication without any symptom improvement. Therefore with the worsening pain he presents for evaluation [facility] Medical History (Updated 03/25/25 @ 23:[address] Guero Baker DO) Abdominal pain Seroma after procedure Influenza due to influenza virus, type A, human Contact with or suspected exposure to other viral communicable disease Sprain of left foot Left ankle sprain Strain of left knee Contusion of left knee Seizures Home Medications ???Medication ???Instructions ???Recorded ???Last Taken ???Type oxycodone-acetaminoph en 5 mg-325 1 tab PO Q6H PRN pain 3 days #12 1 Unknown Rx mg tablet (Percocet) tabs Allergy/AdvReac Type Severity Reaction Status Date / Time adhesive tape Allergy Hives Verified 03/24/25 19:55 cephalexin monohydrate (From Allergy Anaphylaxis Verified 03/24/25 19:55 Keflex) levetiracetam (From Keppra) Allergy Hives Verified 03/24/25 19:55 morphine Allergy Shortness Verified 03/24/25 19:55 of breath naproxen (From Naprosyn) Allergy Hives Verified 03/24/25 19:55 Family History Grandmother Arthritis Mother Arthritis Seizures [...] bruising EXAM Physical Exam Const Vital Signs: 03/24/25 19:54 03/24/25 21:54 Temperature 98.4 F Temperature Source Oral Pulse Rate 108 H 93 Respiratory Rate 18 Blood Pressure 144/94 H 146/87 H Blood Pressure Mean 110 106 Pulse Ox 99 98 Oxygen Delivery Method Room Air Room Air Positive well nourished, well developed and obese General Appearance ED: well developed; Negative for pallor Nutritional Appearance: obese HEENT HEENT Narrative: Normocephalic atraumatic Eyes PERRL and EOMs intact bilaterally General Eye ED: Negative for scleral icterus Neck supple Resp normal respiratory effort and clear to auscultation bilaterally Cardio regular rate and regular rhythm Rate: other Other Details: Radial and carotid pulses are equal and symmetric GI non-distended GI Narrative: Abdomen is obese soft and nondistended with normal active bowel sounds. There is a large ventral hernia noted with apparent intestine protruding through. However there is no sign of incarceration or strangulation as the hernia feels reducible. No peritoneal signs or pulsatile mass. No voluntary guarding or rigidity. No increased tympany or fluid wave. Auscultation: normoactive bowel sounds Palpation: soft Back/Spine no CVA tenderness Extremity normal to inspection Neuro oriented x3, CN's II-XII intact bilaterally and no sensory deficits noted Sensorium / Orientation: alert Motor Exam: strength 5/5 throughout Psych mental status grossly normal Skin no rashes or lesions noted Skin Narrative: No overlying soft tissue changes to suggest trauma or infection General Skin Exam: Negative for jaundice or pallor MDM MDM MDM Narrative Medical decision making narrative: Patient presented to the ER mildly hypertensive but otherwise with stable vitals. He has a known history of a ventral he (more content not included)... Normal [facility] Basic Metabolic Profile (BMP )on 03-08-2025 BUN/CRE 15.2 RATIO Normal 10-20 [facility] Comment on above: Performed By: #### L 500.2500, L503.6005, L501.5200, L100.0100 #### [facility] [address] [place], [address] Calcium [Mass/Vol] 9.0 mg/dL Normal 7.6-11.0 [facility] Comment on above: Performed By: #### L 500.2500, L503.6005, L501.5200, L100.0100 #### [facility] [address] [place], [address] Chloride [Moles/Vol] 102 mmol/L Normal 98-108 [facility] Comment on above: Performed By: #### L 500.2500, L503.6005, L501.5200, L100.0100 #### [facility] [address] [facility] [address] CO2 [Moles/Vol] 22.2 mmol/L Normal 21.0-32.0 [facility] Comment on above: Performed By: #### L 500.2500, L503.6005, L501.5200, L100.0100 #### [facility] [address] [place], [address] Creatinine [Mass/Vol] 0.73 mg/dL Normal 0.70-1.20 [facility] Comment on above: Performed By: #### L 500.2500, L503.6005, L501.5200, L100.0100 #### [facility] [address] [place], [address] ECRCL 199.80 ml/min Normal 50-250 [facility] Comment on above: Performed By: #### L 500.2500, L503.6005, L501.5200, L100.0100 #### [facility] [address] [place], [address] GAP 12 Normal 5-15 [facility] Comment on above: Performed By: #### L 500.2500, L503.6005, L501.5200, L100.0100 #### [facility] [address] [place], [address] GFR/1.73 sq M.predicted among non-blacks MDRD (S/P/Bld) [Vol rate/Area] 114 mL/min/{1.73_m2} Normal >60 [facility] Comment on above: Result Comment: mL/m in/1.73m2 CKD-EPI Creatinine Equation (2020) Performed By: #### L 500.2500, L503.6005, L501.5200, L100.0100 #### [facility] [address] [place], [address] Glucose [Mass/Vol] 115 mg/dL High 70-99 [facility] Comment on above: Performed By: #### L 500.2500, L503.6005, L501.5200, L100.0100 #### [facility] [address] [place], [address] Potassium [Moles/Vol] 4.1 mmol/L Normal 3.3-5.1 [facility] Comment on above: Result Comment: Hemo lysis present, Results??could be affected. ?? Performed By: #### L 500.2500, L503.6005, L501.5200, L100.0100 #### [facility] [address] [place], [address] Sodium [Moles/Vol] 136 mmol/L Normal 133-145 [facility] Comment on above: Performed By: #### L 500.2500, L503.6005, L501.5200, L100.0100 #### [facility] [address] [place], [address] Urea nitrogen [Mass/Vol] 11 mg/dL Normal 4-19 [facility] Comment on above: Performed By: #### L 500.2500, L503.6005, L501.5200, L100.0100 #### [facility] [address] [place], [address] CBC W/Diff, Automatedon 09-2 3-2024 Absolute Lymph 3.35 X10 3/uL Normal 0.83-4.51 [facility] Comment on above: Performed By: #### L 500.2500, L503.6005, L501.5200, L100.0100 #### [facility] [address] [place], [address] Absolute Neut 5.2 X10 3/uL Normal 2.0-7.7 [facility] Comment on above: Performed By: #### L 500.2500, L503.6005, L501.5200, L100.0100 #### [facility] [address] [place], [address] Basophils/100 WBC (Bld) 1.1 % High 0-1 [facility] Comment on above: Performed By: #### L 500.2500, L503.6005, L501.5200, L100.0100 #### [facility] [address] [place], [address] Eosinophils/100 WBC (Bld) 3.6 % Normal 0-5 [facility] Comment on above: Performed By: #### L 500.2500, L503.6005, L501.5200, L100.0100 #### [facility] [address] [place], [address] Erythrocyte distribution width (RBC) [Ratio] 13.0 % Normal 11.6-14.6 [facility] Comment on above: Performed By: #### L 500.2500, L503.6005, L501.5200, L100.0100 #### [facility] [address] [place], [address] Hematocrit (Bld) [Volume fraction] 43.3 % Normal 40-54 [facility] Comment on above: Performed By: #### L 500.2500, L503.6005, L501.5200, L100.0100 #### [facility] [address] [place], [address] Hemoglobin (Bld) [Mass/Vol] 14.9 g/dL Normal 13.0-16.5 [facility] Comment on above: Performed By: #### L 500.2500, L503.6005, L501.5200, L100.0100 #### [facility] [address] [place], [address] IG% 0.800 Normal 0.0-0.9 [facility] Comment on above: Result Comment: IG% - Immature Granulocytes (promyelocytes, myelocytes and metamyelocytes) > 1% indicates that a LEFT SHIFT is Present. Performed By: #### L 500.2500, L503.6005, L501.5200, L100.0100 #### [facility] [address] [place], [address] Lymphocytes/100 WBC (Bld) 34.8 % Normal 19-41 [facility] Comment on above: Performed By: #### L 500.2500, L503.6005, L501.5200, L100.0100 #### [facility] [address] [place], [address] MCH (RBC) [Entitic mass] 31.4 pg Normal 27.0-32.0 [facility] Comment on above: Performed By: #### L 500.2500, L503.6005, L501.5200, L100.0100 #### [facility] [address] [place], [address] MCHC (RBC) [Mass/Vol] 34.4 g/dL Normal 32-36 [facility] Comment on above: Performed By: #### L 500.2500, L503.6005, L501.5200, L100.0100 #### [facility] [address] [place], [address] MCV (RBC) [Entitic vol] 91.2 fL Normal 80-94 [facility] Comment on above: Performed By: #### L 500.2500, L503.6005, L501.5200, L100.0100 #### [facility] [address] [place], [address] Monocytes/100 WBC (Bld) 6.0 % Normal 0-10 [facility] Comment on above: Performed By: #### L 500.2500, L503.6005, L501.5200, L100.0100 #### [facility] [address] [place], [address] Neutrophils/100 WBC (Bld) 53.7 % Normal 47-70 [facility] Comment on above: Performed By: #### L 500.2500, L503.6005, L501.5200, L100.0100 #### [facility] [address] [place], [address] Nucleated RBC (Bld) [#/Vol] 0 10*3/uL Normal 0-5 [facility] Comment on above: Performed By: #### L 500.2500, L503.6005, L501.5200, L100.0100 #### [facility] [address] [place], [address] Platelet mean volume (Bld) [Entitic vol] 9.9 fL Normal 6.2-12.0 [facility] Comment on above: Performed By: #### L 500.2500, L503.6005, L501.5200, L100.0100 #### [facility] [address] [place], [address] Platelets (Bld) [#/Vol] 312 10*3/uL Normal 150-450 [facility] Comment on above: Performed By: #### L 500.2500, L503.6005, L501.5200, L100.0100 #### [facility] [address] [place], [address] RBC (Bld) [#/Vol] 4.75 10*6/uL Normal 4.6-6.2 [facility] Comment on above: Performed By: #### L 500.2500, L503.6005, L501.5200, L100.0100 #### [facility] [address] [place], [address] RDW SD 43.3 fl Normal 35.1-43.9 [facility] Comment on above: Performed By: #### L 500.2500, L503.6005, L501.5200, L100.0100 #### [facility] [address] [place], [address] WBC (Bld) [#/Vol] 9.6 10*3/uL Normal 4.4-11.0 [facility] Comment on above: Performed By: #### L 500.2500, L503.6005, L501.5200, L100.0100 #### [facility] [address] [place], [address] Emergency Department Summary on 03-08-2025 Emergency Department Summary [facility] Medical Records Department [address] [place] [address] Emergency Department Summary 03/08/25 MR#: [id number] Acct: [id number] Name: PATRICK KOROMA Rep #: [id number] : 1980 45 From: Guero Baker DO PCP: ERIC Anaya Status:DEP ER Location: ED HPI History of Present Illness Chief Complaint: Seizure Informant: patient and spouse/S.O. Narrative Narrative: Patient is a 45-year-old male with remote history of seizure disorder. He reportedly has not had a seizure for 3 years and does not take antiepileptic medication. He also has a history of a chronic ventral hernia. He states this evening he was sitting on the couch watching a movie. And then the next he remembers he is waking up. His reports that she noticed his head starting to margarita and that progressed to further shaking. Patient denies loss of bowel or bladder control. He states that he has not been sick in any way recently he has not started or stopped any medications and he denies any alcohol use. As he has not had a seizure for multiple years he presents for evaluation [facility] Medical History (Updated 03/08/25 @ 01:[address] Guero Baker DO) Abdominal pain Seroma after procedure Influenza due to influenza virus, type A, human Contact with or suspected exposure to other viral communicable disease Sprain of left foot Left ankle sprain Strain of left knee Contusion of left knee Seizures Home Medications ???Medication ???Instructions ???Recorded ???Last Taken ???Type NK 03/07/25 Unknown History Allergy/AdvReac Type Severity Reaction Status Date / Time adhesive tape Allergy Hives Verified 03/07/25 22:42 cephalexin monohydrate (From Allergy Anaphylaxis Verified 03/07/25 22:42 Keflex) levetiracetam (From Keppra) Allergy Hives Verified 03/07/25 22:42 morphine Allergy Shortness Verified 03/07/25 22:42 of breath naproxen (From Naprosyn) Allergy Hives Verified 03/07/25 22:42 Family History Grandmother Arthritis Mother Arthritis Seizures Father Colon cancer Diabetes Brother Heart disease Surgical History H/O hernia repair History of appendectomy Social History household members: spouse Smoking Status: Current every day smoker tobacco type: cigarettes alcohol intake: never ROS ROS ED Constitutional Constitutional ED: Denies chills or fever(s) Eyes Eyes: Denies change in vision ENT ENT ED: Denies rhinorrhea or sore throat Cardiovascular Cardiovascular: Denies chest pain Respiratory/Chest Respiratory/Chest: Denies cough or dyspnea Gastrointestinal Gastrointestinal: Reports abdominal pain; Denies diarrhea, nausea or vomiting Genitourinary Genitourinary ED: Denies dysuria Musculoskeletal Musculoskeletal: Denies back pain, myalgias or neck pain Integumentary Denies rash Neurologic Neurologic: Reports headache(s); Denies paresthesias or weakness Hematologic/Lymphatic Hematologic/Lymphatic : Denies easy bleeding or easy bruising EXAM Physical Exam Const Vital Signs: 03/07/25 22:38 03/07/25 23:38 03/08/25 00:56 Temperature 98.4 F 98.0 F Temperature Source Oral Pulse Rate 90 85 70 Respiratory Rate 14 16 16 Blood Pressure 159/87 H 148/89 H 122/81 H Blood Pressure Mean 111 108 94 Pulse Ox 98 99 98 Oxygen Delivery Method Room Air Room Air Positive well nourished and well developed General Appearance ED: well developed; Negative for pallor HEENT HEENT Narrative: Normocephalic atraumatic No tongue or cheek biting noted No findings in the posterior pharynx to suggest infection Eyes PERRL and EOMs intact bilaterally General Eye ED: Negative for scleral icterus Neck supple Neck Narrative: No nuchal rigidity or meningeal sign Chest Wall palpation of chest normal Resp normal respiratory effort and clear to auscultation bilaterally Cardio regular rate and regular rhythm GI non-distended and no masses GI Narrative: There is a ventral hernia noted that is reducible in nature Otherwise no voluntary guarding rigidity or pulsatile mass Auscultation: normoactive bowel sounds Palpation: soft Extremity normal to inspection Neuro oriented x3, CN's II-XII intact bilaterally and no sensory deficits noted Neuro Narrative: GCS of 15 Cranial nerves II through XII are grossly intact without focal neurologic deficit No pronator drift no dysmetria no truncal ataxia NIH stroke scale score of 0 Sensorium / Orientation: alert Motor Exam: strength 5/5 throughout Psych mental status grossly normal Skin no rashes or lesions noted and no wounds General Skin Exam: Negative for jaundice or (more content not included)... Normal [facility] Lactic Acidon 03-08-2025 Lactate [Moles/Vol] 1.6 mmol/L Normal 0.0-2.0 [facility] Comment on above: Order Comment: Y Performed By: #### L 500.2500, L503.6005, L501.5200, L100.0100 #### [facility] [address] [place], [address] Magnesiumon 03-08-2025 Magnesium [Mass/Vol] 2.1 mg/dL Normal 1.5-2.2 [facility] Comment on above: Performed By: #### L 500.2500, L503.6005, L501.5200, L100.0100 #### [facility] [address] [place], [address] Absolute lymphocyte countOrd ered By: Guero Baker on 03-07-2025 Lymphocytes Auto (Unsp spec) [#/Vol] 3.35 10*3/uL 0.83-4.51 [facility] Absolute neutrophil countOrd ered By: Guero Baker on 03-07-2025 Neutrophils (Bld) [#/Vol] 5.2 10*3/uL 2.0-7.7 [facility] Anion gap in Serum or Plasma Ordered By: Guero Baker on 03-07-2025 Anion gap [Moles/Vol] 12 mmol/L 5- [facility] Automated lymphocyte count a s percentage of total leukocytesOrdered By: Guero Baker on 03-07-2025 Lymphocytes/100 WBC Auto (Unsp spec) 34.8 % - [facility] BUN/creatinine ratioOrdered By: Guero Baker on 03-07-2025 Urea nitrogen/Creatinine [Mass ratio] 15.2 mg/mg 10- [facility] Basophil percentageOrdered B y: Guero Baker on 03-07-2025 Basophils/100 WBC (Bld) 1.1 % High 0-1 [facility] Brain/Head without Contrasto n 03-07-2025 Brain/Head without Contrast [facility] Imaging Services [address] [place], [place] [address] Brain/Head without Contrast MR#: [id number] Acct: [id number] Name: PATRICK KOROMA Rep #: [id number] : 1980 M 45 From: Mike Box MD PCP: ERIC Anaya Status: REG ER Study: Brain/Head without Contrast Date of Exam: 02/15 08/10 Exam# [id number] Ordering Dr: Guero Baker DO PROCEDURE: CT BRAIN/HEAD WITHOUT CONTRAST 03/07/2025 REASON FOR EXAM: SEIZURE TECHNIQUE: Procedure Code: CTBR Modality: CT Procedure: BRAIN/HEAD WITHOUT CONTRAST Coronal and Sagittal reconstruction series were provided. One or more dose reduction techniques were used (e.g., Automated exposure control, adjustment of the mA and/or kV according to patient size, use of iterative reconstruction technique. RADIATION DOSE SUMMARY: CTDlvol: 44.99 mGy DLP: 796.11 mGycm COMPARISON: None. FINDINGS: No acute intracranial hemorrhage, extra-axial collection, mass effect or evidence of acute infarct. Ventricles and subarachnoid spaces are normal in size. Orbital contents are unremarkable. Intact skull base and calvarium. Clear paranasal sinuses and mastoid air cells. CT/Brain/Head without Contrast IMPRESSION: Unremarkable head CT. Reading Location: [facility] CC: ERIC Starkey; Guero Baker DO Motorcycle Subassembler: Signed Normal [facility] Carbon dioxide, total [Moles /volume] in Central venous bloodOrdered By: Guero Baker on 03-07-2025 CO2 [Moles/Vol] 22.2 mmol/L 21.0-32.0 [facility] Chest 1 View (Portable)on Chest 1 View (Portable) [facility] Imaging Services [address] [place] [address] Chest 1 View (Portable) MR#: [id number] Acct: [id number] Name: PATRICK KOROMA Rep #: [id number] : 1980 M 45 From: Mike Box MD PCP: ERIC Anaya Status: REG ER Study: Chest 1 View (Portable) Date of Exam: 03/07/25 Exam# [id number] Ordering Dr: Guero Baker DO PROCEDURE: CHEST 1 VIEW (PORTABLE) 03/07/2025 REASON FOR EXAM: SEIZURE TECHNIQUE: Frontal view of the chest. COMPARISON: None. FINDINGS: Lungs/Pleura: Clear. No pneumothorax or sizable pleural effusion. Heart/Mediastinum: Within normal limits. Bones/Soft tissues: No significant abnormality. RAD/Chest 1 View (Portable) IMPRESSION: No acute cardiopulmonary disease. Reading Location: [facility] CC: YULI-C Viola Starkey; Guero Baker DO Motorcycle Subassembler: Signed Normal [facility] Chloride assayOrdered By: Maru Baker on 03-07-2025 Chloride [Moles/Vol] 102 mmol/L 98-108 [facility] Eosinophil percentageOrdered By: Guero Baker on 03-07-2025 Eosinophils/100 WBC (Bld) 3.6 % 0-5 [facility] Erythrocyte distribution wid th ratioOrdered By: Guero Baker on 03-07-2025 Erythrocyte distribution width (RBC) [Ratio] 13.0 % 11.6-14.6 [facility] Erythrocyte distribution wid th standard deviationOrdered By: Guero Baker on 03-07-2025 Erythrocyte distribution width (RBC) [Ratio] 43.3 fl 35.1-43.9 [facility] Glomerular filtration rate ( GFR) estimation/1.73 sq m using serum, plasma, or whole bOrdered By: Guero Baker on 03-07-2025 GFR/1.73 sq M.predicted among non-blacks MDRD (S/P/Bld) [Vol rate/Area] 114 mL/min/{1.73_m2} >60 [facility] Comment on above: mL/min/1.73m2 CKD-EP I Creatinine Equation (2020) Hematocrit Auto (Bld) [Volum e fraction]Ordered By: Guero Baker on 03-07-2025 Hematocrit (Bld) [Volume fraction] 43.3 % 40-54 [facility] Hemoglobin measurementOrdere d By: Guero Baker on 03-07-2025 Hemoglobin (Bld) [Mass/Vol] 14.9 g/dL 13.0-16.5 [facility] Immature granulocytes/100 WB C Auto (Bld)Ordered By: Guero Baker on 03-07-2025 Immature granulocytes/100 WBC (Bld) 0.800 % 0.0-0.9 [facility] Comment on above: IG% - Immature Granu locytes (promyelocytes, myelocytes and metamyelocytes) > 1% indicates that a LEFT SHIFT is Present. Lactic acid measurementOrder ed By: Guero Baker on 03-07-2025 Lactate [Moles/Vol] 1.6 mmol/L 0.0-2.0 [facility] MCV (mean corpuscular volume ) determinationOrdered By: Guero Baker on 03-07-2025 MCV (RBC) [Entitic vol] 91.2 fL 80-94 [facility] Magnesium measurement (mass/ volume)Ordered By: Guero Baker on 03-07-2025 Magnesium (Unsp spec) [Mass/Vol] 2.1 mg/dL 1.5-2.2 [facility] Mean corpuscular hemoglobin (MCH) determinationOrdered By: Guero Baker on 03-07-2025 MCH (RBC) [Entitic mass] 31.4 pg 27.0-32.0 [facility] Mean corpuscular hemoglobin concentration (MCHC) determinationOrdered By: Guero Baker on 03-07-2025 MCHC (RBC) [Mass/Vol] 34.4 g/dL 32-36 [facility] Mean platelet volume determi nationOrdered By: Guero Baker on 03-07-2025 Platelet mean volume (Bld) [Entitic vol] 9.9 fL 6.2-12.0 [facility] Monocyte percentageOrdered B y: Guero aBker on 03-07-2025 Monocytes/100 WBC (Bld) 6.0 % 0-10 [facility] Neutrophil percentageOrdered By: Guero Baker on 03-07-2025 Neutrophils/100 WBC (Bld) 53.7 % 47-70 [facility] Nucleated red blood cell per centageOrdered By: Guero Baker on 03-07-2025 Nucleated RBC/100 WBC (Bld) [Ratio] 0 % 0-5 [facility] Platelet countOrdered By: Maru Baker on 03-07-2025 Platelets (Bld) [#/Vol] 312 10*3/uL 150-450 [facility] Potassium measurement (mass/ volume)Ordered By: Guero Bakre on 03-07-2025 Potassium (Unsp spec) [Mass/Vol] 4.1 mmol/L 3.3-5.1 [facility] Comment on above: Hemolysis present, R esults could be affected. RBC Auto (Bld) [#/Vol]Ordere d By: Guero Baker on 03-07-2025 RBC (Bld) [#/Vol] 4.75 10*6/uL 4.6-6.2 [facility] Serum creatinine measurement (mass/volume)Ordered By: Guero Baker on 03-07-2025 Creatinine [Mass/Vol] 0.73 mg/dL 0.70-1.20 [facility] Serum glucose measurement (m ass/volume)Ordered By: Guero Baker on 03-07-2025 Glucose [Mass/Vol] 115 mg/dL High 70-99 [facility] Serum or plasma calcium za urement (mass/volume)Ordered By: Guero Baker on 03-07-2025 Calcium [Mass/Vol] 9.0 mg/dL 7.6-11.0 [facility] Serum or plasma urea nitroge n measurement (mass/volume)Ordered By: Guero Baker on 03-07-2025 Urea nitrogen [Mass/Vol] 11 mg/dL 4-19 [facility] Sodium levelOrdered By: Scott Baker on 03-07-2025 Sodium [Moles/Vol] 136 mmol/L 133-145 [facility] White blood cell (WBC) count Ordered By: Guero Baker on 03-07-2025 WBC (Bld) [#/Vol] 9.6 10*3/uL 4.4-11.0 [facility] HEALTH 03-02-2025 ALLIED HEALTH HNO ID: [id number] Author: BRANDO ANN TECHNOLOGIST Service: Radiology Author Type: Technologist Type: Allied [...] PATIENT PRESENTS WITH AN IMPLANTABLE OR ATTACHED STILL CLEANER TUBE: No ALLERGIES: Reviewed and unchanged CONTRAST ALLERGY: [...] Completed: Abdomen/Pelvis . Anesthesia: No SIGNATURE: Brando Bartinelli, TECHNOLOGIST PATIENT NAME: Patrick Koroma DATE: March 02, 2025 TIME: 2:36 PM Normal [facility] CBC W Auto Differential pane l (Bld)on 03-02-2025 Basophils (Bld) [#/Vol] 0.08 10*3/uL Normal <0.11 [facility] Comment on above: Order Comment: Speci men Type: BLOOD SPECIMEN Ordering Facility: [facility] Address: [address] [place] [address] Performed By: #### 5 7021-8 #### [facility] CLIA [id number] [address] [place] [address] [place] Basophils/100 WBC (Bld) 0.9 % Normal [facility] Comment on above: Order Comment: Speci men Type: BLOOD SPECIMEN Ordering Facility: [facility] Address: [address] [place] [address] Performed By: #### 5 7021-8 #### [facility] CLIA [id number] [address] [place] [address] [place] Differential cell count method Nom (Bld) Auto Normal [facility] Comment on above: Order Comment: Speci men Type: BLOOD SPECIMEN Ordering Facility: [facility] Address: [address] [place] [address] Performed By: #### 5 7021-8 #### [facility] CLIA [id number] [address] [place] [address] [place] Eosinophils (Bld) [#/Vol] 0.19 10*3/uL Normal <0.46 [facility] Comment on above: Order Comment: Speci men Type: BLOOD SPECIMEN Ordering Facility: [facility] Address: [address] [place] [address] Performed By: #### 5 7021-8 #### [facility] CLIA [id number] [address] [place] [address] [place] Eosinophils/100 WBC (Bld) 2.1 % Normal [facility] Comment on above: Order Comment: Speci men Type: BLOOD SPECIMEN Ordering Facility: [facility] Address: [address] [place] [address] Performed By: #### 5 7021-8 #### [facility] CLIA [id number] [address] [place] Erythrocyte distribution width (RBC) [Ratio] 13.0 % Normal 11.5-15.0 [facility] Comment on above: Order Comment: Speci men Type: BLOOD SPECIMEN Ordering Facility: [facility] Address: [address] [place] [address] Performed By: #### 5 7021-8 #### [facility] CLIA [id number] [address] [place] Hematocrit (Bld) [Volume fraction] 42.1 % Normal 39.0-51.0 [facility] Comment on above: Order Comment: Speci men Type: BLOOD SPECIMEN Ordering Facility: [facility] Address: [address] [place] [address] Performed By: #### 5 7021-8 #### [facility] CLIA [id number] [address] [place] [address] [place] Hemoglobin (Bld) [Mass/Vol] 14.3 g/dL Normal 13.0-17.0 [facility] Comment on above: Order Comment: Speci men Type: BLOOD SPECIMEN Ordering Facility: [facility] Address: [address] [place] [address] Performed By: #### 5 7021-8 #### [facility] CLIA [id number] [address] [place] Immature granulocytes (Bld) [#/Vol] 10*3/uL Normal <0.10 [facility] Comment on above: Order Comment: Speci men Type: BLOOD SPECIMEN Ordering Facility: [facility] Address: [address] [place] [address] Performed By: #### 5 7021-8 #### [facility] CLIA [id number] [address] Immature granulocytes/100 WBC (Bld) 0.2 % Normal [facility] Comment on above: Order Comment: Speci men Type: BLOOD SPECIMEN Ordering Facility: [facility] Address: [address] [place] [address] Performed By: #### 5 7021-8 #### [facility] CLIA [id number] [address] Lymphocytes (Bld) [#/Vol] 1.90 10*3/uL Normal 1.00-4.00 [facility] Comment on above: Order Comment: Speci men Type: BLOOD SPECIMEN Ordering Facility: [facility] Address: [address] [place] [address] Performed By: #### 5 7021-8 #### [facility] CLIA [id number] [address] Lymphocytes/100 WBC (Bld) 21.0 % Normal [facility] Comment on above: Order Comment: Speci men Type: BLOOD SPECIMEN Ordering Facility: [facility] Address: [address] [place] [address] Performed By: #### 5 7021-8 #### [facility] CLIA [id number] [address] MCH (RBC) [Entitic mass] 31.5 pg Normal 26.0-34.0 [facility] Comment on above: Order Comment: Speci men Type: BLOOD SPECIMEN Ordering Facility: [facility] Address: [address] [place] [address] Performed By: #### 5 7021-8 #### [facility] CLIA [id number] [address] MCHC (RBC) [Mass/Vol] 34.0 g/dL Normal 30.5-36.0 [facility] Comment on above: Order Comment: Speci men Type: BLOOD SPECIMEN Ordering Facility: [facility] Address: [address] [place] [address] Performed By: #### 5 7021-8 #### [facility] CLIA [id number] [address] MCV (RBC) [Entitic vol] 92.7 fL Normal 80.0-100.0 [facility] Comment on above: Order Comment: Speci men Type: BLOOD SPECIMEN Ordering Facility: [facility] Address: [address] [place] [address] Performed By: #### 5 7021-8 #### [facility] CLIA [id number] [address] [place] [address] [place] Monocytes (Bld) [#/Vol] 0.61 10*3/uL Normal <0.87 [facility] Comment on above: Order Comment: Speci men Type: BLOOD SPECIMEN Ordering Facility: [facility] Address: [address] [place] [address] Performed By: #### 5 7021-8 #### [facility] CLIA [id number] [address] [place] Monocytes/100 WBC (Bld) 6.7 % Normal [facility] Comment on above: Order Comment: Speci men Type: BLOOD SPECIMEN Ordering Facility: [facility] Address: [address] [place] [address] Performed By: #### 5 7021-8 #### [facility] CLIA [id number] [address] [place] [address] [place] Neutrophils (Bld) [#/Vol] 6.24 10*3/uL Normal 1.45-7.50 [facility] Comment on above: Order Comment: Speci men Type: BLOOD SPECIMEN Ordering Facility: [facility] Address: [address] [place] [address] Performed By: #### 5 7021-8 #### [facility] CLIA [id number] [address] [place] Neutrophils/100 WBC (Bld) 69.1 % Normal [facility] Comment on above: Order Comment: Speci men Type: BLOOD SPECIMEN Ordering Facility: [facility] Address: [address] [place] [address] Performed By: #### 5 7021-8 #### [facility] CLIA [id number] [address] [place] [address] [place] Nucleated RBC (Bld) [#/Vol] 10*3/uL Normal <0.01 [facility] Comment on above: Order Comment: Speci men Type: BLOOD SPECIMEN Ordering Facility: [facility] Address: [address] [place] [address] Performed By: #### 5 7021-8 #### [facility] CLIA [id number] [address] [place] [address] [place] Nucleated RBC/100 WBC (Bld) [Ratio] 0.0 /100 WBC Normal [facility] Comment on above: Order Comment: Speci men Type: BLOOD SPECIMEN Ordering Facility: [facility] Address: [address] [place] [address] Performed By: #### 5 7021-8 #### [facility] CLIA [id number] [address] [place] [address] [place] Platelet mean volume (Bld) [Entitic vol] 9.7 fL Normal 9.0-12.7 [facility] Comment on above: Order Comment: Speci men Type: BLOOD SPECIMEN Ordering Facility: [facility] Address: [address] [place] [address] Performed By: #### 5 7021-8 #### [facility] CLIA [id number] [address] [place] [address] [place] Platelets (Bld) [#/Vol] 287 10*3/uL Normal 150-400 [facility] Comment on above: Order Comment: Speci men Type: BLOOD SPECIMEN Ordering Facility: [facility] Address: [address] [place] [address] Performed By: #### 5 7021-8 #### [facility] CLIA [id number] [address] [place] [address] [place] RBC (Bld) [#/Vol] 4.54 10*6/uL Normal 4.20-6.00 [facility] Comment on above: Order Comment: Speci men Type: BLOOD SPECIMEN Ordering Facility: [facility] Address: [address] [place] [address] Performed By: #### 5 7021-8 #### [facility] CLIA [id number] [address] [place] WBC (Bld) [#/Vol] 9.04 10*3/uL Normal 3.70-11.00 [facility] Comment on above: Order Comment: Speci men Type: BLOOD SPECIMEN Ordering Facility: [facility] Address: [facility] [place] [id number] Performed By: #### 5 7021-8 #### [facility] CLIA [id number] [address] [place] [address] [place] [address] ABD/PEL W IVCONon 025 CT ABD/PEL W IVCON * * *Final Report* * * DATE OF EXAM: Mar 02 2025 2:45PM [facility] 0530 - CT ABD/PEL W IVCON / [...] IMPRESSION: No acute abnormality or bowel obstruction. Motorcycle Subassembler: PSCB Transcribe Date/Time: Mar 02 2025 3:29P Dictated by : ELIDA MORTON MD This examination was interpreted and the report reviewed and electronically signed by: ELIDA MORTON MD on Mar 02 2025 3:31PM EST [id number] Normal [facility] CT ABDOMEN/PELVIS W/O CONTRA STon 03-02-2025 CT [...] 03/02/2025 12:00:47 AM Ordering Provider: BLANCO Nelson [facility] Comprehensive metabolic 2000 panelon 03-02-2025 Albumin [Mass/Vol] 4.0 g/dL Normal 3.9-4.9 [facility] Comment on above: Order Comment: Speci men Type: BLOOD SPECIMEN Ordering Facility: [facility] Address: [address] [place] [address] Performed By: #### 3 040-3, 50412-0 #### [facility] CLIA [id number] [address] [place] [address] [place] [facility] ALP [Catalytic activity/Vol] 35 U/L Low 38-113 [facility] Comment on above: Order Comment: Speci men Type: BLOOD SPECIMEN Ordering Facility: [facility] Address: [address] [place] [address] Performed By: #### 3 040-3, 48881-0 #### [facility] CLIA [id number] [address] [place] ALT [Catalytic activity/Vol] 16 U/L Normal 10-54 [facility] Comment on above: Order Comment: Speci men Type: BLOOD SPECIMEN Ordering Facility: [facility] Address: [address] [place] [address] Performed By: #### 3 040-3, 32480-6 #### [facility] CLIA [id number] [address] [place] [address] [place] Anion gap [Moles/Vol] 7 mmol/L Low 8-15 [facility] Comment on above: Order Comment: Speci men Type: BLOOD SPECIMEN Ordering Facility: [facility] Address: [address] [place] [address] Performed By: #### 3 040-3, 70894-6 #### [facility] CLIA [id number] [address] [place] AST [Catalytic activity/Vol] 17 U/L Normal 14-40 [facility] Comment on above: Order Comment: Speci men Type: BLOOD SPECIMEN Ordering Facility: [facility] Address: [address] [place] [address] Performed By: #### 3 040-3, 02604-3 #### [facility] CLIA [id number] [address] [place] [address] [place] Bilirubin [Mass/Vol] 0.4 mg/dL Normal 0.2-1.3 [facility] Comment on above: Order Comment: Speci men Type: BLOOD SPECIMEN Ordering Facility: [facility] Address: [address] [place] [address] Performed By: #### 3 040-3, 08602-7 #### [facility] CLIA [id number] [address] [place] [address] [place] Calcium [Mass/Vol] 8.9 mg/dL Normal 8.5-10.2 [facility] Comment on above: Order Comment: Speci men Type: BLOOD SPECIMEN Ordering Facility: [facility] Address: [address] [place] [address] Performed By: #### 3 040-3, #### [facility] CLIA [id number] [address] [place] [address] [place] Chloride [Moles/Vol] 105 mmol/L Normal 98-107 [facility] Comment on above: Order Comment: Speci men Type: BLOOD SPECIMEN Ordering Facility: [facility] Address: [address] [place] [address] Performed By: #### 3 -3, 81567-3 #### [facility] CLIA [id number] [address] [place] [address] [place] CO2 [Moles/Vol] 26 mmol/L Normal 22-30 [facility] Comment on above: Order Comment: Speci men Type: BLOOD SPECIMEN Ordering Facility: [facility] Address: [address] [place] [address] Performed By: #### 3 040-3, 13356-2 #### [facility] CLIA [id number] [address] [place] [address] [place] Creatinine [Mass/Vol] 0.76 mg/dL Normal 0.73-1.22 [facility] Comment on above: Order Comment: Speci men Type: BLOOD SPECIMEN Ordering Facility: [facility] Address: [address] [place] [address] Performed By: #### 3 040-3, 02120-5 #### [facility] CLIA [id number] [address] [place] [address] [place] eGFRcr SerPlBld CKD-EPI 2020 112 mL/min/1.73m??? Normal >=60 [facility] Comment on above: Order Comment: Vikash vasquez Type: BLOOD SPECIMEN Ordering Facility: [facility] Address: [address] [place] [address] Result Comment: Katie mated Glomerular Filtration Rate [...] actual GFR. Performed By: #### 3 040-3, 97694-7 #### [facility] CLIA [id number] [address] [place] [address] [place] Glucose [Mass/Vol] 89 mg/dL Normal 74-99 [facility] Comment on above: Order Comment: Vikash vasquez Type: BLOOD SPECIMEN Ordering Facility: [facility] Address: [address] [place] [address] Result Comment: [employer] [place] [employer] (ADA) [...] 2016.39(Suppl 1). Performed By: #### 3 040-3, 02734-5 #### [facility] [facility] CLIA [id number] [address] [place] [address] [place] Potassium [Moles/Vol] 4.6 mmol/L Normal 3.7-5.1 [facility] Comment on above: Order Comment: Vikash vasquez Type: BLOOD SPECIMEN Ordering Facility: [facility] Address: [address] [place] [address] Performed By: #### 3 040-3, 74097-6 #### [facility] CLIA [id number] [address] STATES [facility] Protein [Mass/Vol] 6.8 g/dL Normal 6.3-8.0 [facility] Comment on above: Order Comment: Speci men Type: BLOOD SPECIMEN Ordering Facility: [facility] Address: [address] [place] [address] Performed By: #### 3 040-3, 72004-6 #### [facility] CLIA [id number] [address] Sodium [Moles/Vol] 138 mmol/L Normal 136-144 [facility] Comment on above: Order Comment: Speci men Type: BLOOD SPECIMEN Ordering Facility: [facility] Address: [address] [place] [address] Performed By: #### 3 040-3, 30741-4 #### [facility] CLIA [id number] [address] Urea nitrogen [Mass/Vol] 6 mg/dL Low 9-24 [facility] Comment on above: Order Comment: Speci men Type: BLOOD SPECIMEN Ordering Facility: [facility] Address: [address] [place] [address] Performed By: #### 3 040-3, 62997-0 #### [facility] CLIA [id number] [address] ED NOTEon 03-02-2025 ED NOTE HNO ID: [id number] Author: BLAINE RABAGO RN Service: ? Author [...] of the education. Pt departed from ED. [facility] ED NOTE HNO ID: [id number] Author: BLAINE RABAGO RN Service: ? Author Type: Registered Nurse Type: ED Notes Filed: 03/02/2025 16:02 Note Text: Provider at bedside for reeval [facility] ED NOTE HNO ID: [id number] Author: BLAINE RABAGO, IBETH Service: ? Author Type: Registered Nurse Type: ED Notes Filed: 03/02/2025 14:35 Note Text: Patient given a warm blanket [facility] ED PROV NOTEon 03-02-2025 ED PROV NOTE HNO ID: [id number] Author: MACEY ISAACS DO Service: Emergency Medicine Author Type: Physician Type: ED Provider Notes Filed: 03/02/2025 17:30 Note Text: ED Provider Note Patient Name: Patrick Koroma : 1980 SERVICE DATE: 03/02/25 History Patient presents with: Abdominal Pain: Has known hernia. Scheduled for surgery in March at [facility] for same. Pain has been worsening for [...] IMPRESSION: No acute abnormality or bowel obstruction. Motorcycle Subassembler: ALLAN Transcribe Date/Time: Mar 02 2025 3:29P Dictated [...] INTRAVENOUS Infusion (more content not included)... Normal [facility] Lipase SerPl-cCncon 03-02-20 Lipase [Catalytic activity/Vol] 18 U/L Normal [facility] Comment on above: Order Comment: Speci men Type: BLOOD SPECIMEN Ordering Facility: [facility] Address: [address] [place] [address] Performed By: #### 3 040-3, 98086-7 #### [facility] CLIA [id number] [address] [place] [address] [place] Abdomen/Pelvis W IV Cont ONL Yon 02-27-2025 Abdomen/Pelvis W IV Cont ONLY [facility] Imaging Services [address] [place], [place] [id number] Abdomen/Pelvis W IV Cont ONLY MR#: [id number] Acct: [id number] Name: PATRICK KOROMA Rep #: [id number] : 1980 M 45 From: Mary Collazo MD PCP: ERIC Anaya Status: REG ER Study: Abdomen/Pelvis W IV Cont ONLY Date of Exam: Exam# [id number] Ordering Dr: Joseluis Maier DO PROCEDURE: ABDOMEN/PELVIS [...] IN THE ABDOMEN OR PELVIS. Reading Location: NKL-SPXALP-CP CC: ERIC Starkey; Dr. Joseluis Maier DO Motorcycle Subassembler: Signed Normal [facility] Absolute lymphocyte countOrd ered By: Joseluis Maier on 02-27-2025 Lymphocytes Auto (Unsp spec) [#/Vol] 3.43 10*3/uL 0.83-4.51 [facility] Absolute neutrophil countOrd ered By: Joseluis Maier on 02-27-2025 Neutrophils (Bld) [#/Vol] 5.5 10*3/uL 2.0-7.7 [facility] Anion gap in Serum or Plasma Ordered By: Joseluis Maier on 02-27-2025 Anion gap [Moles/Vol] 11 mmol/L 5-15 [facility] Automated lymphocyte count a s percentage of total leukocytesOrdered By: Joseluis Maier on 02-27-2025 Lymphocytes/100 WBC Auto (Unsp spec) 34.6 % 19-41 [facility] BUN/creatinine ratioOrdered By: Joseluis Alcantaras on 02-27-2025 Urea nitrogen/Creatinine [Mass ratio] 14.1 mg/mg 10-20 [facility] Basophil percentageOrdered B y: Joseluis Maravillarus on 02-27-2025 Basophils/100 WBC (Bld) 0.6 % 0-1 [facility] Bilirubin, totalOrdered By: Joseluis Maravillarus on 02-27-2025 Bilirubin [Mass/Vol] mg/dL 0.00-1.30 [facility] CBC W/Diff, Automatedon 02-14-2024 Absolute Lymph 3.43 X10 3/uL Normal 0.83-4.51 [facility] Comment on above: Performed By: #### L 503.6005, L100.0100, L501.2450, L500.4050 #### [facility] [address] [place], [address] Absolute Neut 5.5 X10 3/uL Normal 2.0-7.7 [facility] Comment on above: Performed By: #### L 503.6005, L100.0100, L501.2450, L500.4050 #### [facility] [address] [place], [address] Basophils/100 WBC (Bld) 0.6 % Normal 0-1 [facility] Comment on above: Performed By: #### L 503.6005, L100.0100, L501.2450, L500.4050 #### [facility] [address] [place], [address] Eosinophils/100 WBC (Bld) 2.2 % Normal 0-5 [facility] Comment on above: Performed By: #### L 503.6005, L100.0100, L501.2450, L500.4050 #### [facility] [address] [place], [address] Erythrocyte distribution width (RBC) [Ratio] 13.1 % Normal 11.6-14.6 [facility] Comment on above: Performed By: #### L 503.6005, L100.0100, L501.2450, L500.4050 #### [facility] [address] [place], [address] Hematocrit (Bld) [Volume fraction] 39.4 % Low 40-54 [facility] Comment on above: Performed By: #### L 503.6005, L100.0100, L501.2450, L500.4050 #### [facility] [address] [place], [address] Hemoglobin (Bld) [Mass/Vol] 13.4 g/dL Normal 13.0-16.5 [facility] Comment on above: Performed By: #### L 503.6005, L100.0100, L501.2450, L500.4050 #### [facility] [address] [place], [address] IG% 0.300 Normal 0.0-0.9 [facility] Comment on above: Result Comment: IG% - Immature Granulocytes (promyelocytes, myelocytes and metamyelocytes) > 1% indicates that a LEFT SHIFT is Present. Performed By: #### L 503.6005, L100.0100, L501.2450, L500.4050 #### [facility] [address] [place], [address] Lymphocytes/100 WBC (Bld) 34.6 % Normal 19-41 [facility] Comment on above: Performed By: #### L 503.6005, L100.0100, L501.2450, L500.4050 #### [facility] [address] [place], [address] MCH (RBC) [Entitic mass] 31.2 pg Normal 27.0-32.0 [facility] Comment on above: Performed By: #### L 503.6005, L100.0100, L501.2450, L500.4050 #### [facility] [address] [place], [address] MCHC (RBC) [Mass/Vol] 34.0 g/dL Normal 32-36 [facility] Comment on above: Performed By: #### L 503.6005, L100.0100, L501.2450, L500.4050 #### [facility] [address] [place], [address] MCV (RBC) [Entitic vol] 91.8 fL Normal 80-94 [facility] Comment on above: Performed By: #### L 503.6005, L100.0100, L501.2450, L500.4050 #### [facility] [address] [place], [address] Monocytes/100 WBC (Bld) 6.8 % Normal 0-10 [facility] Comment on above: Performed By: #### L 503.6005, L100.0100, L501.2450, L500.4050 #### [facility] [address] [place], [address] Neutrophils/100 WBC (Bld) 55.5 % Normal 47-70 [facility] Comment on above: Performed By: #### L 503.6005, L100.0100, L501.2450, L500.4050 #### [facility] [address] [place], [address] Nucleated RBC (Bld) [#/Vol] 0 10*3/uL Normal 0-5 [facility] Comment on above: Performed By: #### L 503.6005, L100.0100, L501.2450, L500.4050 #### [facility] [address] [place], [address] Platelet mean volume (Bld) [Entitic vol] 9.5 fL Normal 6.2-12.0 [facility] Comment on above: Performed By: #### L 503.6005, L100.0100, L501.2450, L500.4050 #### [facility] [address] [place], [address] Platelets (Bld) [#/Vol] 280 10*3/uL Normal 150-450 [facility] Comment on above: Performed By: #### L 503.6005, L100.0100, L501.2450, L500.4050 #### [facility] [address] [place], [address] RBC (Bld) [#/Vol] 4.29 10*6/uL Low 4.6-6.2 [facility] Comment on above: Performed By: #### L 503.6005, L100.0100, L501.2450, L500.4050 #### [facility] [address] [place], [address] RDW SD 43.8 fl Normal 35.1-43.9 [facility] Comment on above: Performed By: #### L 503.6005, L100.0100, L501.2450, L500.4050 #### [facility] [address] [place], [address] WBC (Bld) [#/Vol] 9.9 10*3/uL Normal 4.4-11.0 [facility] Comment on above: Performed By: #### L 503.6005, L100.0100, L501.2450, L500.4050 #### [facility] [address] [place], [address] Carbon dioxide, total [Moles /volume] in Central venous bloodOrdered By: Joseluis Maier on 02-27-2025 CO2 [Moles/Vol] 22.6 mmol/L 21.0-32.0 [facility] Chloride assayOrdered By: Nicki josesito Maravillarus on 02-27-2025 Chloride [Moles/Vol] 107 mmol/L 98-108 [facility] Comprehensive Metabolic Prof ilon 02-27-2025 Albumin [Mass/Vol] 3.8 g/dL Normal 3.5-5.0 [facility] Comment on above: Performed By: #### L 503.6005, L100.0100, L501.2450, L500.4050 ####[facility] [address] [place], [address] Albumin/Globulin [Mass ratio] 1.5 {ratio} Normal 0.9-2.4 [facility] Comment on above: Performed By: #### L 503.6005, L100.0100, L501.2450, L500.4050 ####[facility] [address] [place], [address] ALK PHOS 34 U/L Low 40-129 [facility] Comment on above: Performed By: #### L 503.6005, L100.0100, L501.2450, L500.4050 ####[facility] [address] [place], [address] ALT [Catalytic activity/Vol] 18 U/L Normal <=46 [facility] Comment on above: Performed By: #### L 503.6005, L100.0100, L501.2450, L500.4050 ####[facility] [address] [place], [address] AST [Catalytic activity/Vol] 21 U/L Normal <=37 [facility] Comment on above: Performed By: #### L 503.6005, L100.0100, L501.2450, L500.4050 ####[facility] [address] [place], [address] BUN/CRE 14.1 RATIO Normal 10-20 [facility] Comment on above: Performed By: #### L 503.6005, L100.0100, L501.2450, L500.4050 ####[facility] [address] [place], [address] Calcium [Mass/Vol] 9.3 mg/dL Normal 7.6-11.0 [facility] Comment on above: Performed By: #### L 503.6005, L100.0100, L501.2450, L500.4050 ####[facility] [address] [place], [address] Chloride [Moles/Vol] 107 mmol/L Normal 98-108 [facility] Comment on above: Performed By: #### L 503.6005, L100.0100, L501.2450, L500.4050 ####[facility] [address] [place], [address] CO2 [Moles/Vol] 22.6 mmol/L Normal 21.0-32.0 [facility] Comment on above: Performed By: #### L 503.6005, L100.0100, L501.2450, L500.4050 ####[facility] [address] [place], [address] Creatinine [Mass/Vol] 0.82 mg/dL Normal 0.70-1.20 [facility] Comment on above: Performed By: #### L 503.6005, L100.0100, L501.2450, L500.4050 ####[facility] [address] [place], [address] ECRCL 178.28 ml/min Normal 50-250 [facility] Comment on above: Performed By: #### L 503.6005, L100.0100, L501.2450, L500.4050 ####[facility] [address] [place], [address] GAP 11 Normal 5-15 [facility] Comment on above: Performed By: #### L 503.6005, L100.0100, L501.2450, L500.4050 ####[facility] [address] [place], [address] GFR/1.73 sq M.predicted among non-blacks MDRD (S/P/Bld) [Vol rate/Area] 110 mL/min/{1.73_m2} Normal >60 [facility] Comment on above: Result Comment: mL/m in/1.73m2 CKD-EPI Creatinine Equation (2020) Performed By: #### L 503.6005, L100.0100, L501.2450, L500.4050 ####[facility] [address] [place], [address] Globulin (S) [Mass/Vol] 2.6 g/dL Normal 2.2-4.2 [facility] Comment on above: Performed By: #### L 503.6005, L100.0100, L501.2450, L500.4050 ####[facility] [address] [place], [address] Glucose [Mass/Vol] 108 mg/dL High 70-99 [facility] Comment on above: Performed By: #### L 503.6005, L100.0100, L501.2450, L500.4050 ####[facility] [address] [place], [address] Potassium [Moles/Vol] 3.8 mmol/L Normal 3.3-5.1 [facility] Comment on above: Performed By: #### L 503.6005, L100.0100, L501.2450, L500.4050 ####[facility] [address] [place], [address] Sodium [Moles/Vol] 140 mmol/L Normal 133-145 [facility] Comment on above: Performed By: #### L 503.6005, L100.0100, L501.2450, L500.4050 ####[facility] [address] [place], [address] T BILI < 0.15 Normal 0.00-1.30 [facility] Comment on above: Performed By: #### L 503.6005, L100.0100, L501.2450, L500.4050 ####[facility] [address] [place], [address] T PROT 6.3 g/dL Normal 5.9-8.4 [facility] Comment on above: Performed By: #### L 503.6005, L100.0100, L501.2450, L500.4050 ####[facility] [address] [place], [address] Urea nitrogen [Mass/Vol] 12 mg/dL Normal 4-19 [facility] Comment on above: Performed By: #### L 503.6005, L100.0100, L501.2450, L500.4050 ####[facility] [address] [place], [address] Emergency Department Summary on 02-27-2025 Emergency Department Summary [facility] Medical Records Department [address] [place] [address] Emergency Department Summary 02/27/25 MR#: [id number] Acct: [id number] Name: PATRICK KOROMA Rep #: [id number] : 1980 45 From: Joseluis Maier DO PCP: ERIC Anaya Status:REG ER Location: ED HPI History of Present Illness Chief Complaint: Abd Pain [facility] Medical History (Updated 02/27/25 @ 22:34 by [...] Ox 98 Oxygen Delivery Method Room Air MDM MDM MDM Narrative Medical decision making narrative: HISTORY OF PRESENT ILLNESS: Chief complaint: Abdominal pain 45-year-old male here with concern for abdominal pain. History of large hernia, appendectomy. Notes he follows a specialist at [facility]. Notes he has a surgical evaluation/ operation [...] MEDICAL DECISION MAKING: Chief Complaint: please see [facility] External records reviewed: Seen on 02/2025 for abdominal pain. Reviewed prior imaging studies. Reviewed imaging studies from January 07 which shows Factors affecting care: As per [facility] Social determinants of health: none History obtained from others: Fianc??? Consults: none [facility] Narrative: The patient was initially hypertensive with [...] treat th (more content not included)... Normal [facility] Eosinophil percentageOrdered By: Joseluis Maier on 02-27-2025 Eosinophils/100 WBC (Bld) 2.2 % 0-5 [facility] Erythrocyte distribution wid th ratioOrdered By: Joseluis Maier on 02-27-2025 Erythrocyte distribution width (RBC) [Ratio] 13.1 % 11.6-14.6 [facility] Erythrocyte distribution wid th standard deviationOrdered By: Joseluis Maier on 02-27-2025 Erythrocyte distribution width (RBC) [Ratio] 43.8 fl 35.1-43.9 [facility] Glomerular filtration rate ( GFR) estimation/1.73 sq m using serum, plasma, or whole bOrdered By: Joseluis Maier on 02-27-2025 GFR/1.73 sq M.predicted among non-blacks MDRD (S/P/Bld) [Vol rate/Area] 110 mL/min/{1.73_m2} >60 [facility] Comment on above: mL/min/1.73m2 CKD-EP I Creatinine Equation (2020) Hematocrit Auto (Bld) [Volum e fraction]Ordered By: Joseluis Maier on 02-27-2025 Hematocrit (Bld) [Volume fraction] 39.4 % Low 40-54 [facility] Hemoglobin measurementOrdere d By: Joseluis Maier on 02-27-2025 Hemoglobin (Bld) [Mass/Vol] 13.4 g/dL 13.0-16.5 [facility] Immature granulocytes/100 WB C Auto (Bld)Ordered By: Joseluis Maier on 02-27-2025 Immature granulocytes/100 WBC (Bld) 0.300 % 0.0-0.9 [facility] Comment on above: IG% - Immature Granu locytes (promyelocytes, myelocytes and metamyelocytes) > 1% indicates that a LEFT SHIFT is Present. Laboratory - Chemistry and C hemistry - challengeOrdered By: Joseluis Maier on 02-27-2025 AST [Catalytic activity/Vol] 21 U/L <38 [facility] Lactic Acidon 02-27-2025 Lactate [Moles/Vol] 1.5 mmol/L Normal 0.0-2.0 [facility] Comment on above: Order Comment: Y Performed By: #### L 503.6005, L100.0100, L501.2450, L500.4050 #### [facility] [address] [place], [address] Lactic acid measurementOrder ed By: Joseluis Maier on 02-27-2025 Lactate [Moles/Vol] 1.5 mmol/L 0.0-2.0 [facility] Lipaseon 02-27-2025 Lipase [Catalytic activity/Vol] 37 U/L Normal 13-75 [facility] Comment on above: Result Comment: Scout kline note: LIPASE revised reference range effective 22. New Lipase methodology. Expected to produce lower values than the previous assay method. NEW Reference Range: 13 - 75 U/L Performed By: #### L 503.6005, L100.0100, L501.2450, L500.4050 ####[facility] [address] [place], [address] Lipase measurementOrdered By : Joseluis Maier on 02-27-2025 Lipase [Catalytic activity/Vol] 37 U/L 13-75 [facility] Comment on above: Please note:LIPASE r evised reference range effective 22. New Lipase methodology. Expected to produce lower values than the previous assay method. NEW Reference Range: 13 - 75 U/L MCV (mean corpuscular volume ) determinationOrdered By: Joseluis Maier on 02-27-2025 MCV (RBC) [Entitic vol] 91.8 fL 80-94 [facility] Mean corpuscular hemoglobin (MCH) determinationOrdered By: Joseluis Maier on 02-27-2025 MCH (RBC) [Entitic mass] 31.2 pg 27.0-32.0 [facility] Mean corpuscular hemoglobin concentration (MCHC) determinationOrdered By: Joseluis Maier on 02-27-2025 MCHC (RBC) [Mass/Vol] 34.0 g/dL 32-36 [facility] Mean platelet volume determi nationOrdered By: Joseluis Maier on 02-27-2025 Platelet mean volume (Bld) [Entitic vol] 9.5 fL 6.2-12.0 [facility] Monocyte percentageOrdered B y: Joseluis Maier on 02-27-2025 Monocytes/100 WBC (Bld) 6.8 % 0-10 [facility] Neutrophil percentageOrdered By: Joseluis Maier on 02-27-2025 Neutrophils/100 WBC (Bld) 55.5 % 47-70 [facility] Nucleated red blood cell per centageOrdered By: Joseluis Maier on 09-14-2025 Nucleated RBC/100 WBC (Bld) [Ratio] 0 % 0-5 [facility] Platelet countOrdered By: Nicki Maier on 02-27-2025 Platelets (Bld) [#/Vol] 280 10*3/uL 150-450 [facility] Potassium measurement (mass/ volume)Ordered By: Joseluis Maier on 02-27-2025 Potassium (Unsp spec) [Mass/Vol] 3.8 mmol/L 3.3-5.1 [facility] RBC Auto (Bld) [#/Vol]Ordere d By: Joseluis Maier on 02-27-2025 RBC (Bld) [#/Vol] 4.29 10*6/uL Low 4.6-6.2 [facility] Serum creatinine measurement (mass/volume)Ordered By: Joseluis Maier on 02-27-2025 Creatinine [Mass/Vol] 0.82 mg/dL 0.70-1.20 [facility] Serum globulin measurementOr dered By: Joseluis Maier on 02-27-2025 Globulin (S) [Mass/Vol] 2.6 g/dL 2.2-4.2 [facility] Serum glucose measurement (m ass/volume)Ordered By: Joseluis Maier on 02-27-2025 Glucose [Mass/Vol] 108 mg/dL High 70-99 [facility] Serum or plasma alanine carrera otransferase (ALT) measurementOrdered By: Joseluis Maier on 02-27-2025 ALT [Catalytic activity/Vol] 18 U/L <47 [facility] Serum or plasma albumin za urement (mass/volume)Ordered By: Joseluis Maier on 02-27-2025 Albumin [Mass/Vol] 3.8 g/dL 3.5-5.0 [facility] Serum or plasma albumin/glob ulin mass ratioOrdered By: Joseluis Maier on 02-27-2025 Albumin/Globulin [Mass ratio] 1.5 {ratio} 0.9-2.4 [facility] Serum or plasma alkaline carmen sphatase measurementOrdered By: Joseluis Maier on 02-27-2025 ALP [Catalytic activity/Vol] 34 U/L Low 40-129 [facility] Serum or plasma calcium za urement (mass/volume)Ordered By: Joseluis Maier on 02-27-2025 Calcium [Mass/Vol] 9.3 mg/dL 7.6-11.0 [facility] Serum or plasma urea nitroge n measurement (mass/volume)Ordered By: Joseluis Maier on 02-27-2025 Urea nitrogen [Mass/Vol] 12 mg/dL 4-19 [facility] Sodium levelOrdered By: Leidy Maier on 02-27-2025 Sodium [Moles/Vol] 140 mmol/L 133-145 [facility] Total proteinOrdered By: Shamika Maier on 02-27-2025 Protein [Mass/Vol] 6.3 g/dL 5.9-8.4 [facility] White blood cell (WBC) count Ordered By: Joseluis Maier on 02-27-2025 WBC (Bld) [#/Vol] 9.9 10*3/uL 4.4-11.0 [facility] Absolute lymphocyte countOrd ered By: Guero Baker on 02-17-2025 Lymphocytes Auto (Unsp spec) [#/Vol] 3.60 10*3/uL 0.83-4.51 [facility] Absolute neutrophil countOrd ered By: Guero Baker on 02-17-2025 Neutrophils (Bld) [#/Vol] 8.0 10*3/uL High 2.0-7.7 [facility] Anion gap in Serum or Plasma Ordered By: Guero Baker on 02-17-2025 Anion gap [Moles/Vol] 12 mmol/L 5-15 [facility] Automated lymphocyte count a s percentage of total leukocytesOrdered By: Guero Baker on 02-17-2025 Lymphocytes/100 WBC Auto (Unsp spec) 27.8 % 19-41 [facility] BUN/creatinine ratioOrdered By: Guero Baker on 02-17-2025 Urea nitrogen/Creatinine [Mass ratio] 10.1 mg/mg 10- [facility] Basic Metabolic Profile (BMP )on 02-17-2025 BUN/CRE 10.1 RATIO Normal - [facility] Comment on above: Performed By: #### L 503.6005, L500.3400, L500.2500, L501.2450, L100.0100 ####[facility] [address] [place], [address] Calcium [Mass/Vol] 9.0 mg/dL Normal 7.6-11.0 [facility] Comment on above: Performed By: #### L 503.6005, L500.3400, L500.2500, L501.2450, L100.0100 ####[facility] [address] [place], [address] Chloride [Moles/Vol] 102 mmol/L Normal 98-108 [facility] Comment on above: Performed By: #### L 503.6005, L500.3400, L500.2500, L501.2450, L100.0100 ####[facility] [address] [place], [address] CO2 [Moles/Vol] 24.1 mmol/L Normal 21.0-32.0 [facility] Comment on above: Performed By: #### L 503.6005, L500.3400, L500.2500, L501.2450, L100.0100 ####[facility] [address] [place], [address] Creatinine [Mass/Vol] 0.91 mg/dL Normal 0.70-1.20 [facility] Comment on above: Performed By: #### L 503.6005, L500.3400, L500.2500, L501.2450, L100.0100 ####[facility] [address] [place], [address] ECRCL 159.78 ml/min Normal 50-250 [facility] Comment on above: Performed By: #### L 503.6005, L500.3400, L500.2500, L501.2450, L100.0100 ####[facility] [address] [place], [address] GAP 12 Normal 5-15 [facility] Comment on above: Performed By: #### L 503.6005, L500.3400, L500.2500, L501.2450, L100.0100 ####[facility] [address] [place], [address] GFR/1.73 sq M.predicted among non-blacks MDRD (S/P/Bld) [Vol rate/Area] 106 mL/min/{1.73_m2} Normal >60 [facility] Comment on above: Result Comment: mL/m in/1.73m2 CKD-EPI Creatinine Equation (2020) Performed By: #### L 503.6005, L500.3400, L500.2500, L501.2450, L100.0100 ####[facility] [address] [place], [address] Glucose [Mass/Vol] 106 mg/dL High 70-99 [facility] Comment on above: Performed By: #### L 503.6005, L500.3400, L500.2500, L501.2450, L100.0100 ####[facility] [address] [place], [address] Potassium [Moles/Vol] 3.7 mmol/L Normal 3.3-5.1 [facility] Comment on above: Performed By: #### L 503.6005, L500.3400, L500.2500, L501.2450, L100.0100 ####[facility] [address] [place], [address] Sodium [Moles/Vol] 138 mmol/L Normal 133-145 [facility] Comment on above: Performed By: #### L 503.6005, L500.3400, L500.2500, L501.2450, L100.0100 ####[facility] [address] [place], [address] Urea nitrogen [Mass/Vol] 9 mg/dL Normal 4-19 [facility] Comment on above: Performed By: #### L 503.6005, L500.3400, L500.2500, L501.2450, L100.0100 ####[facility] [address] [place], [address] Basophil percentageOrdered B y: Guero Baker on 02-17-2025 Basophils/100 WBC (Bld) 0.7 % 0-1 [facility] Bilirubin directOrdered By: Guero Baker on 02-17-2025 Bilirubin.direct [Mass/Vol] 0.12 mg/dL 0.00-0.30 [facility] Bilirubin, totalOrdered By: Guero Baker on 02-17-2025 Bilirubin [Mass/Vol] 0.35 mg/dL 0.00-1.30 [facility] CBC W/Diff, Automatedon Absolute Lymph 3.60 X10 3/uL Normal 0.83-4.51 [facility] Comment on above: Performed By: #### L 503.6005, L500.3400, L500.2500, L501.2450, L100.0100 ####[facility] [address] [place], [address] Absolute Neut 8.0 X10 3/uL High 2.0-7.7 [facility] Comment on above: Performed By: #### L 503.6005, L500.3400, L500.2500, L501.2450, L100.0100 ####[facility] [address] [place], [address] Basophils/100 WBC (Bld) 0.7 % Normal 0-1 [facility] Comment on above: Performed By: #### L 503.6005, L500.3400, L500.2500, L501.2450, L100.0100 ####[facility] [address] [place], [address] Eosinophils/100 WBC (Bld) 2.0 % Normal 0-5 [facility] Comment on above: Performed By: #### L 503.6005, L500.3400, L500.2500, L501.2450, L100.0100 ####[facility] [address] [place], [address] Erythrocyte distribution width (RBC) [Ratio] 12.8 % Normal 11.6-14.6 [facility] Comment on above: Performed By: #### L 503.6005, L500.3400, L500.2500, L501.2450, L100.0100 ####[facility] [address] [place], [address] Hematocrit (Bld) [Volume fraction] 41.2 % Normal 40-54 [facility] Comment on above: Performed By: #### L 503.6005, L500.3400, L500.2500, L501.2450, L100.0100 ####[facility] [address] [place], [address] Hemoglobin (Bld) [Mass/Vol] 14.3 g/dL Normal 13.0-16.5 [facility] Comment on above: Performed By: #### L 503.6005, L500.3400, L500.2500, L501.2450, L100.0100 ####[facility] [address] [place], [address] IG% 0.400 Normal 0.0-0.9 [facility] Comment on above: Result Comment: IG% - Immature Granulocytes (promyelocytes, myelocytes and metamyelocytes) > 1% indicates that a LEFT SHIFT is Present. Performed By: #### L 503.6005, L500.3400, L500.2500, L501.2450, L100.0100 ####[facility] [address] [place], [address] Lymphocytes/100 WBC (Bld) 27.8 % Normal 19-41 [facility] Comment on above: Performed By: #### L 503.6005, L500.3400, L500.2500, L501.2450, L100.0100 ####[facility] [address] [place], [address] MCH (RBC) [Entitic mass] 31.4 pg Normal 27.0-32.0 [facility] Comment on above: Performed By: #### L 503.6005, L500.3400, L500.2500, L501.2450, L100.0100 ####[facility] [address] [place], [address] MCHC (RBC) [Mass/Vol] 34.7 g/dL Normal 32-36 [facility] Comment on above: Performed By: #### L 503.6005, L500.3400, L500.2500, L501.2450, L100.0100 ####[facility] [address] [place], [address] MCV (RBC) [Entitic vol] 90.5 fL Normal 80-94 [facility] Comment on above: Performed By: #### L 503.6005, L500.3400, L500.2500, L501.2450, L100.0100 ####[facility] [address] [place], [address] Monocytes/100 WBC (Bld) 7.0 % Normal 0-10 [facility] Comment on above: Performed By: #### L 503.6005, L500.3400, L500.2500, L501.2450, L100.0100 ####[facility] [address] [place], [address] Neutrophils/100 WBC (Bld) 62.1 % Normal 47-70 [facility] Comment on above: Performed By: #### L 503.6005, L500.3400, L500.2500, L501.2450, L100.0100 ####[facility] [address] [place], [address] Nucleated RBC (Bld) [#/Vol] 0 10*3/uL Normal 0-5 [facility] Comment on above: Performed By: #### L 503.6005, L500.3400, L500.2500, L501.2450, L100.0100 ####[facility] [address] [place], [address] Platelet mean volume (Bld) [Entitic vol] 9.2 fL Normal 6.2-12.0 [facility] Comment on above: Performed By: #### L 503.6005, L500.3400, L500.2500, L501.2450, L100.0100 ####[facility] [address] [place], [address] Platelets (Bld) [#/Vol] 320 10*3/uL Normal 150-450 [facility] Comment on above: Performed By: #### L 503.6005, L500.3400, L500.2500, L501.2450, L100.0100 ####[facility] [address] [place], [address] RBC (Bld) [#/Vol] 4.55 10*6/uL Low 4.6-6.2 [facility] Comment on above: Performed By: #### L 503.6005, L500.3400, L500.2500, L501.2450, L100.0100 ####[facility] [address] [place], [address] RDW SD 42.5 fl Normal 35.1-43.9 [facility] Comment on above: Performed By: #### L 503.6005, L500.3400, L500.2500, L501.2450, L100.0100 ####[facility] [address] [place], [address] WBC (Bld) [#/Vol] 12.9 10*3/uL High 4.4-11.0 [facility] Comment on above: Performed By: #### L 503.6005, L500.3400, L500.2500, L501.2450, L100.0100 ####[facility] [address] [facility] [place], [address] Carbon dioxide, total [Moles /volume] in Central venous bloodOrdered By: Guero Baker on 02-17-2025 CO2 [Moles/Vol] 24.1 mmol/L 21.0-32.0 [facility] Chloride assayOrdered By: Maru Baker on 02-17-2025 Chloride [Moles/Vol] 102 mmol/L 98-108 [facility] Emergency Department Summary on 02-17-2025 Emergency Department Summary [facility] Medical Records Department [address] [place] [address] Emergency Department Summary 02/17/25 MR#: [id number] Acct: [id number] Name: PATRICK KOROMA Rep #: [id number] : 1980 45 From: Guero Baker DO PCP: ERIC Anaya Status:DEP ER Location: ED HPI History of Present Illness Chief Complaint: Abd Pain Informant: patient Narrative Narrative: Patient is a 45-year-old male with past medical history of a large ventral hernia. He states he is following with a specialist at [facility] and is scheduled to have the hernia fixed in mid March. He states there has been no fevers chills nausea vomiting diarrhea or constipation. He states has been no recent trauma or excessive activity. However this evening he developed midepigastric abdominal pain that was more intense than his baseline pain from his hernia and secondary to this comes in for evaluation. [facility] Medical History Seroma after procedure Influenza [...] reported midepigastr (more content not included)... Normal [facility] Eosinophil percentageOrdered By: Guero Baker on 02-17-2025 Eosinophils/100 WBC (Bld) 2.0 % 0-5 [facility] Erythrocyte distribution wid th ratioOrdered By: Guero Baker on 02-17-2025 Erythrocyte distribution width (RBC) [Ratio] 12.8 % 11.6-14.6 [facility] Erythrocyte distribution wid th standard deviationOrdered By: Guero Baker on 02-17-2025 Erythrocyte distribution width (RBC) [Ratio] 42.5 fl 35.1-43.9 [facility] Glomerular filtration rate ( GFR) estimation/1.73 sq m using serum, plasma, or whole bOrdered By: Guero Baker on 02-17-2025 GFR/1.73 sq M.predicted among non-blacks MDRD (S/P/Bld) [Vol rate/Area] 106 mL/min/{1.73_m2} >60 [facility] Comment on above: mL/min/1.73m2 CKD-EP I Creatinine Equation (2020) Hematocrit Auto (Bld) [Volum e fraction]Ordered By: Guero Baker on 02-17-2025 Hematocrit (Bld) [Volume fraction] 41.2 % 40-54 [facility] Hemoglobin measurementOrdere d By: Guero Baker on 02-17-2025 Hemoglobin (Bld) [Mass/Vol] 14.3 g/dL 13.0-16.5 [facility] Immature granulocytes/100 WB C Auto (Bld)Ordered By: Guero Baker on 02-17-2025 Immature granulocytes/100 WBC (Bld) 0.400 % 0.0-0.9 [facility] Comment on above: IG% - Immature Granu locytes (promyelocytes, myelocytes and metamyelocytes) > 1% indicates that a LEFT SHIFT is Present. Laboratory - Chemistry and C hemistry - challengeOrdered By: Guero Baker on 02-17-2025 AST [Catalytic activity/Vol] 24 U/L <38 [facility] Lactic Acidon 02-17-2025 Lactate [Moles/Vol] 1.3 mmol/L Normal 0.0-2.0 [facility] Comment on above: Order Comment: Y Performed By: #### L 503.6005, L500.3400, L500.2500, L501.2450, L100.0100 ####[facility] [address] [place], [address] Lactic acid measurementOrder ed By: Guero Baker on 02-17-2025 Lactate [Moles/Vol] 1.3 mmol/L 0.0-2.0 [facility] Lipaseon 02-17-2025 Lipase [Catalytic activity/Vol] 50 U/L Normal 13-75 [facility] Comment on above: Result Comment: Scout kline note: LIPASE revised reference range effective 22. New Lipase methodology. Expected to produce lower values than the previous assay method. NEW Reference Range: 13 - 75 U/L Performed By: #### L 503.6005, L500.3400, L500.2500, L501.2450, L100.0100 ####[facility] [address] [place], [address] Lipase measurementOrdered By : Guero Baker on 02-17-2025 Lipase [Catalytic activity/Vol] 50 U/L 13-75 [facility] Comment on above: Please note:LIPASE r evised reference range effective 22. New Lipase methodology. Expected to produce lower values than the previous assay method. NEW Reference Range: 13 - 75 U/L Liver Profileon 02-17-2025 Albumin [Mass/Vol] 4.0 g/dL Normal 3.5-5.0 [facility] Comment on above: Performed By: #### L 503.6005, L500.3400, L500.2500, L501.2450, L100.0100 ####[facility] [address] [place], [address] ALK PHOS 38 U/L Low 40-129 [facility] Comment on above: Performed By: #### L 503.6005, L500.3400, L500.2500, L501.2450, L100.0100 ####[facility] [address] [place], [address] ALT [Catalytic activity/Vol] 19 U/L Normal <=46 [facility] Comment on above: Performed By: #### L 503.6005, L500.3400, L500.2500, L501.2450, L100.0100 ####[facility] [address] [place], [address] AST [Catalytic activity/Vol] 24 U/L Normal <=37 [facility] Comment on above: Performed By: #### L 503.6005, L500.3400, L500.2500, L501.2450, L100.0100 ####[facility] [address] [place], [address] Bilirubin [Mass/Vol] 0.35 mg/dL Normal 0.00-1.30 [facility] Comment on above: Performed By: #### L 503.6005, L500.3400, L500.2500, L501.2450, L100.0100 ####[facility] [address] [place], [address] Bilirubin.direct [Mass/Vol] 0.12 mg/dL Normal 0.00-0.30 [facility] Comment on above: Performed By: #### L 503.6005, L500.3400, L500.2500, L501.2450, L100.0100 ####[facility] [address] [place], [address] Globulin (S) [Mass/Vol] 3.0 g/dL Normal 2.2-4.2 [facility] Comment on above: Performed By: #### L 503.6005, L500.3400, L500.2500, L501.2450, L100.0100 ####[facility] [address] [place], [address] T PROT 7.0 g/dL Normal 5.9-8.4 [facility] Comment on above: Performed By: #### L 503.6005, L500.3400, L500.2500, L501.2450, L100.0100 ####[facility] [address] [place], [address] MCV (mean corpuscular volume ) determinationOrdered By: Guero Baker on 02-17-2025 MCV (RBC) [Entitic vol] 90.5 fL 80-94 [facility] Mean corpuscular hemoglobin (MCH) determinationOrdered By: Guero Baker on 02-17-2025 MCH (RBC) [Entitic mass] 31.4 pg 27.0-32.0 [facility] Mean corpuscular hemoglobin concentration (MCHC) determinationOrdered By: Guero Baker on 02-17-2025 MCHC (RBC) [Mass/Vol] 34.7 g/dL 32-36 [facility] Mean platelet volume determi nationOrdered By: Guero Baker on 02-17-2025 Platelet mean volume (Bld) [Entitic vol] 9.2 fL 6.2-12.0 [facility] Monocyte percentageOrdered B y: Guero Baker on 02-17-2025 Monocytes/100 WBC (Bld) 7.0 % 0-10 [facility] Neutrophil percentageOrdered By: Guero Baker on 02-17-2025 Neutrophils/100 WBC (Bld) 62.1 % 47-70 [facility] Nucleated red blood cell per centageOrdered By: Guero Baker on 02-17-2025 Nucleated RBC/100 WBC (Bld) [Ratio] 0 % 0-5 [facility] Platelet countOrdered By: Mrau Baker on 02-17-2025 Platelets (Bld) [#/Vol] 320 10*3/uL 150-450 [facility] Potassium measurement (mass/ volume)Ordered By: Guero Baker on 02-17-2025 Potassium (Unsp spec) [Mass/Vol] 3.7 mmol/L 3.3-5.1 [facility] RBC Auto (Bld) [#/Vol]Ordere d By: Guero Baker on 02-17-2025 RBC (Bld) [#/Vol] 4.55 10*6/uL Low 4.6-6.2 [facility] Serum creatinine measurement (mass/volume)Ordered By: Guero Baker on 02-17-2025 Creatinine [Mass/Vol] 0.91 mg/dL 0.70-1.20 [facility] Serum globulin measurementOr dered By: Guero Baker on 02-17-2025 Globulin (S) [Mass/Vol] 3.0 g/dL 2.2-4.2 [facility] Serum glucose measurement (m ass/volume)Ordered By: Guero Baker on 02-17-2025 Glucose [Mass/Vol] 106 mg/dL High 70-99 [facility] Serum or plasma alanine carrera otransferase (ALT) measurementOrdered By: Guero Baker on 02-17-2025 ALT [Catalytic activity/Vol] 19 U/L <47 [facility] Serum or plasma albumin za urement (mass/volume)Ordered By: Guero Baker on 02-17-2025 Albumin [Mass/Vol] 4.0 g/dL 3.5-5.0 [facility] Serum or plasma alkaline carmen sphatase measurementOrdered By: Guero Baker on 02-17-2025 ALP [Catalytic activity/Vol] 38 U/L Low 40-129 [facility] Serum or plasma calcium za urement (mass/volume)Ordered By: Guero Baker on 02-17-2025 Calcium [Mass/Vol] 9.0 mg/dL 7.6-11.0 [facility] Serum or plasma urea nitroge n measurement (mass/volume)Ordered By: Guero Baker on 02-17-2025 Urea nitrogen [Mass/Vol] 9 mg/dL 4-19 [facility] Sodium levelOrdered By: Scott Baker on 02-17-2025 Sodium [Moles/Vol] 138 mmol/L 133-145 [facility] Total proteinOrdered By: Yovani Baker on 02-17-2025 Protein [Mass/Vol] 7.0 g/dL 5.9-8.4 [facility] White blood cell (WBC) count Ordered By: Guero Baker on 02-17-2025 WBC (Bld) [#/Vol] 12.9 10*3/uL High 4.4-11.0 [facility] CBC W/Diff, Automatedon 01-14 PLT EST ADEQUATE Normal ADEQ [facility] Comment on above: Performed By: #### L 500.3400, L100.0100, L501.2450, L503.6005, L500.2500 ####[facility] [address] [place], [place], [id number] RED CELL MORPH NORM C+C Normal NORM C C [facility] Comment on above: Performed By: #### L 500.3400, L100.0100, L501.2450, L503.6005, L500.2500 ####[facility] [address] [place], [address] SMEAR COMMENT SCANNED Normal [facility] Comment on above: Performed By: #### L 500.3400, L100.0100, L501.2450, L503.6005, L500.2500 ####[facility] [address] 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 He denies any fevers or chills or trauma. However he has been having increasing pain along the mid abdomen radiating towards the left that is worse with motion. He states it is not being controlled with swql-gtb-joxhzso medications and therefore comes in for evaluation. The patient states that there has been no fevers or chills diarrhea constipation dysuria. He denies any nausea or vomiting either. He denies any known sick contacts [facility] Medical History Seroma after procedure Influenza [...] peritoneal sign (more content not included)... Normal [facility] Absolute lymphocyte countOrd ered By: Guero Baker on 01-25-2025 Lymphocytes Auto (Unsp spec) [#/Vol] 4.28 10*3/uL 0.83-4.51 [facility] Absolute neutrophil countOrd ered By: Guero Baker on 01-25-2025 Neutrophils (Bld) [#/Vol] 6.3 10*3/uL 2.0-7.7 [facility] Anion gap in Serum or Plasma Ordered By: Guero Baker on 01-25-2025 Anion gap [Moles/Vol] 12 mmol/L 5-15 [facility] Automated lymphocyte count a s percentage of total leukocytesOrdered By: Guero Baker on 01-25-2025 Lymphocytes/100 WBC Auto (Unsp spec) 36.6 % 19-41 [facility] BUN/creatinine ratioOrdered By: Guero Bakre on 01-25-2025 Urea nitrogen/Creatinine [Mass ratio] 11.4 mg/mg - [facility] Basic Metabolic Profile (BMP )on 01-25-2025 BUN/CRE 11.4 RATIO Normal - [facility] Comment on above: Performed By: #### L 500.3400, L100.0100, L501.2450, L503.6005, L500.2500 ####[facility] [address] [place], [place], [id number] Calcium [Mass/Vol] 9.6 mg/dL Normal 7.6-11.0 [facility] Comment on above: Performed By: #### L 500.3400, L100.0100, L501.2450, L503.6005, L500.2500 ####[facility] [address] [place], [address] Chloride [Moles/Vol] 104 mmol/L Normal 98-108 [facility] Comment on above: Performed By: #### L 500.3400, L100.0100, L501.2450, L503.6005, L500.2500 ####[facility] [address] [place], [address] CO2 [Moles/Vol] 22.2 mmol/L Normal 21.0-32.0 [facility] Comment on above: Performed By: #### L 500.3400, L100.0100, L501.2450, L503.6005, L500.2500 ####[facility] [address] [place], [address] Creatinine [Mass/Vol] 0.88 mg/dL Normal 0.70-1.20 [facility] Comment on above: Performed By: #### L 500.3400, L100.0100, L501.2450, L503.6005, L500.2500 ####[facility] [address] [place], [address] ECRCL 165.23 ml/min Normal 50-250 [facility] Comment on above: Performed By: #### L 500.3400, L100.0100, L501.2450, L503.6005, L500.2500 ####[facility] [address] [place], [address] GAP 12 Normal 5-15 [facility] Comment on above: Performed By: #### L 500.3400, L100.0100, L501.2450, L503.6005, L500.2500 ####[facility] [address] [place], [address] GFR/1.73 sq M.predicted among non-blacks MDRD (S/P/Bld) [Vol rate/Area] 107 mL/min/{1.73_m2} Normal >60 [facility] Comment on above: Result Comment: mL/m in/1.73m2 CKD-EPI Creatinine Equation (2020) Performed By: #### L 500.3400, L100.0100, L501.2450, L503.6005, L500.2500 ####[facility] [address] [place], [address] Glucose [Mass/Vol] 90 mg/dL Normal 70-99 [facility] Comment on above: Performed By: #### L 500.3400, L100.0100, L501.2450, L503.6005, L500.2500 ####[facility] [address] [place], [address] Potassium [Moles/Vol] 4.2 mmol/L Normal 3.3-5.1 [facility] Comment on above: Performed By: #### L 500.3400, L100.0100, L501.2450, L503.6005, L500.2500 ####[facility] [address] [place], [address] Sodium [Moles/Vol] 139 mmol/L Normal 133-145 [facility] Comment on above: Performed By: #### L 500.3400, L100.0100, L501.2450, L503.6005, L500.2500 ####[facility] [address] [place], [address] Urea nitrogen [Mass/Vol] 10 mg/dL Normal 4-19 [facility] Comment on above: Performed By: #### L 500.3400, L100.0100, L501.2450, L503.6005, L500.2500 ####[facility] [address] [place], [address] Basophil percentageOrdered B y: Guero Baker on 01-25-2025 Basophils/100 WBC (Bld) 0.9 % 0-1 [facility] Bilirubin directOrdered By: Guero Baker on 01-25-2025 Bilirubin.direct [Mass/Vol] mg/dL 0.00-0.30 [facility] Bilirubin, totalOrdered By: Guero Baker on 01-25-2025 Bilirubin [Mass/Vol] 0.17 mg/dL 0.00-1.30 [facility] Blood manual differential co mment interpretation (narrative result)Ordered By: Guero Baker on 01-25-2025 Manual differential comment Alonso (Bld) [Interp] SCANNED [facility] Carbon dioxide, total [Moles /volume] in Central venous bloodOrdered By: Guero Baker on 01-25-2025 CO2 [Moles/Vol] 22.2 mmol/L 21.0-32.0 [facility] Chloride assayOrdered By: Maru Baker on 01-25-2025 Chloride [Moles/Vol] 104 mmol/L 98-108 [facility] Eosinophil percentageOrdered By: Guero Baker on 01-25-2025 Eosinophils/100 WBC (Bld) 2.8 % 0-5 [facility] Erythrocyte distribution wid th ratioOrdered By: Guero Baker on 01-25-2025 Erythrocyte distribution width (RBC) [Ratio] 13.2 % 11.6-14.6 [facility] Erythrocyte distribution wid th standard deviationOrdered By: Guero Baker on 01-25-2025 Erythrocyte distribution width (RBC) [Ratio] 43.5 fl 35.1-43.9 [facility] Erythrocyte morphology asses smentOrdered By: Guero Baker on 01-25-2025 RBC morphology finding Nom (Bld) NORM C+C NORMAL NORM C&C [facility] Glomerular filtration rate ( GFR) estimation/1.73 sq m using serum, plasma, or whole bOrdered By: Guero Baker on 01-25-2025 GFR/1.73 sq M.predicted among non-blacks MDRD (S/P/Bld) [Vol rate/Area] 107 mL/min/{1.73_m2} >60 [facility] Comment on above: mL/min/1.73m2 CKD-EP I Creatinine Equation (2020) Hematocrit Auto (Bld) [Volum e fraction]Ordered By: Guero Baker on 01-25-2025 Hematocrit (Bld) [Volume fraction] 44.9 % 40-54 [facility] Hemoglobin measurementOrdere d By: Guero Baker on 01-25-2025 Hemoglobin (Bld) [Mass/Vol] 15.4 g/dL 13.0-16.5 [facility] Immature granulocytes/100 WB C Auto (Bld)Ordered By: Guero Baker on 01-25-2025 Immature granulocytes/100 WBC (Bld) 0.300 % 0.0-0.9 [facility] Comment on above: IG% - Immature Granu locytes (promyelocytes, myelocytes and metamyelocytes) > 1% indicates that a LEFT SHIFT is Present. Laboratory - Chemistry and C hemistry - challengeOrdered By: Guero Baker on 01-25-2025 AST [Catalytic activity/Vol] 18 U/L <38 [facility] Lactic Acidon 01-25-2025 Lactate [Moles/Vol] 1.1 mmol/L Normal 0.0-2.0 [facility] Comment on above: Order Comment: Y Performed By: #### L 500.3400, L100.0100, L501.2450, L503.6005, L500.2500 ####[facility] [address] [place], [place], [id number] Lactic acid measurementOrder ed By: Guero Baker on 01-25-2025 Lactate [Moles/Vol] 1.1 mmol/L 0.0-2.0 [facility] Lipaseon 01-25-2025 Lipase [Catalytic activity/Vol] 31 U/L Normal 13-75 [facility] Comment on above: Result Comment: Scout kline note: LIPASE revised reference range effective 22. New Lipase methodology. Expected to produce lower values than the previous assay method. NEW Reference Range: 13 - 75 U/L Performed By: #### L 500.3400, L100.0100, L501.2450, L503.6005, L500.2500 ####[facility] [address] [place], [address] Lipase measurementOrdered By : Guero Baker on 01-25-2025 Lipase [Catalytic activity/Vol] 31 U/L 13-75 [facility] Comment on above: Please note:LIPASE r evised reference range effective 22. New Lipase methodology. Expected to produce lower values than the previous assay method. NEW Reference Range: 13 - 75 U/L Liver Profileon 01-25-2025 Albumin [Mass/Vol] 4.3 g/dL Normal 3.5-5.0 [facility] Comment on above: Performed By: #### L 500.3400, L100.0100, L501.2450, L503.6005, L500.2500 ####[facility] [address] [place], [address] ALK PHOS 40 U/L Normal 40-129 [facility] Comment on above: Performed By: #### L 500.3400, L100.0100, L501.2450, L503.6005, L500.2500 ####[facility] [address] [place], [address] ALT [Catalytic activity/Vol] 14 U/L Normal <=46 [facility] Comment on above: Performed By: #### L 500.3400, L100.0100, L501.2450, L503.6005, L500.2500 ####[facility] [address] [place], [address] AST [Catalytic activity/Vol] 18 U/L Normal <=37 [facility] Comment on above: Performed By: #### L 500.3400, L100.0100, L501.2450, L503.6005, L500.2500 ####[facility] [address] [place], [address] Bilirubin [Mass/Vol] 0.17 mg/dL Normal 0.00-1.30 [facility] Comment on above: Performed By: #### L 500.3400, L100.0100, L501.2450, L503.6005, L500.2500 ####[facility] [address] [place], [address] D BILI < 0.08 Normal 0.00-0.30 [facility] Comment on above: Performed By: #### L 500.3400, L100.0100, L501.2450, L503.6005, L500.2500 ####[facility] [address] [place], [place], [id number] Globulin (S) [Mass/Vol] 3.1 g/dL Normal 2.2-4.2 [facility] Comment on above: Performed By: #### L 500.3400, L100.0100, L501.2450, L503.6005, L500.2500 ####[facility] [address] [place], [place], [id number] T PROT 7.3 g/dL Normal 5.9-8.4 [facility] Comment on above: Performed By: #### L 500.3400, L100.0100, L501.2450, L503.6005, L500.2500 ####[facility] [address] [place], [address] MCV (mean corpuscular volume ) determinationOrdered By: Guero Baker on 01-25-2025 MCV (RBC) [Entitic vol] 91.1 fL 80-94 [facility] Mean corpuscular hemoglobin (MCH) determinationOrdered By: Guero Baker on 01-25-2025 MCH (RBC) [Entitic mass] 31.2 pg 27.0-32.0 [facility] Mean corpuscular hemoglobin concentration (MCHC) determinationOrdered By: Guero Baker on 01-25-2025 MCHC (RBC) [Mass/Vol] 34.3 g/dL 32-36 [facility] Mean platelet volume determi nationOrdered By: Guero Baker on 01-25-2025 Platelet mean volume (Bld) [Entitic vol] 9.8 fL 6.2-12.0 [facility] Monocyte percentageOrdered B y: Guero Baker on 01-25-2025 Monocytes/100 WBC (Bld) 5.1 % 0-10 [facility] Neutrophil percentageOrdered By: Guero Baker on 01-25-2025 Neutrophils/100 WBC (Bld) 54.3 % 47-70 [facility] Nucleated red blood cell per centageOrdered By: Guero Baker on 01-25-2025 Nucleated RBC/100 WBC (Bld) [Ratio] 0 % 0-5 [facility] Platelet countOrdered By: Maru Baker on 01-25-2025 Platelets (Bld) [#/Vol] 333 10*3/uL 150-450 [facility] Platelet estimateOrdered By: Guero Baker on 01-25-2025 Platelets LM Ql (Bld) ADEQUATE ADEQ [facility] Potassium measurement (mass/ volume)Ordered By: Guero Baker on 01-25-2025 Potassium (Unsp spec) [Mass/Vol] 4.2 mmol/L 3.3-5.1 [facility] RBC Auto (Bld) [#/Vol]Ordere d By: Guero Baker on 01-25-2025 RBC (Bld) [#/Vol] 4.93 10*6/uL 4.6-6.2 [facility] Serum creatinine measurement (mass/volume)Ordered By: Guero Baker on 01-25-2025 Creatinine [Mass/Vol] 0.88 mg/dL 0.70-1.20 [facility] Serum globulin measurementOr dered By: Guero Baker on 01-25-2025 Globulin (S) [Mass/Vol] 3.1 g/dL 2.2-4.2 [facility] Serum glucose measurement (m ass/volume)Ordered By: Guero Baker on 01-25-2025 Glucose [Mass/Vol] 90 mg/dL 70-99 [facility] Serum or plasma alanine carrera otransferase (ALT) measurementOrdered By: Guero Baker on 01-25-2025 ALT [Catalytic activity/Vol] 14 U/L <47 [facility] Serum or plasma albumin za urement (mass/volume)Ordered By: Guero Baker on 01-25-2025 Albumin [Mass/Vol] 4.3 g/dL 3.5-5.0 [facility] Serum or plasma alkaline carmen sphatase measurementOrdered By: Guero Baker on 01-25-2025 ALP [Catalytic activity/Vol] 40 U/L 40-129 [facility] Serum or plasma calcium za urement (mass/volume)Ordered By: Guero Baker on 01-25-2025 Calcium [Mass/Vol] 9.6 mg/dL 7.6-11.0 [facility] Serum or plasma urea nitroge n measurement (mass/volume)Ordered By: Guero Baker on 01-25-2025 Urea nitrogen [Mass/Vol] 10 mg/dL 4-19 [facility] Sodium levelOrdered By: Scott Baker on 01-25-2025 Sodium [Moles/Vol] 139 mmol/L 133-145 [facility] Total proteinOrdered By: Yovani Baker on 01-25-2025 Protein [Mass/Vol] 7.3 g/dL 5.9-8.4 [facility] White blood cell (WBC) count Ordered By: Guero Baker on 01-25-2025 WBC (Bld) [#/Vol] 11.7 10*3/uL High 4.4-11.0 [facility] Abdomen/Pelvis W IV Cont ONL Yon 12-29-2024 Abdomen/Pelvis W IV Cont ONLY [facility] Imaging Services [address] [place] [address] Abdomen/Pelvis W IV Cont ONLY MR#: [id number] Acct: [id number] Name: PATRICK KOROMA Rep #: [id number] : 1980 M 44 From: Colt Cruz MD PCP: Viola Starkey 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 Reading Location: [place] [address] CC: ERIC Starkey; Dr. 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 Absolute lymphocyte countOrd ered By: Justin Cordero on 12-29-2024 Lymphocytes Auto (Unsp spec) [#/Vol] 3.55 10*3/uL 0.83-4.51 [facility] Absolute neutrophil countOrd ered By: Justin Cordero on 12-29-2024 Neutrophils (Bld) [#/Vol] 7.2 10*3/uL 2.0-7.7 [facility] Anion gap in Serum or Plasma Ordered By: Justin Cordero on 12-29-2024 Anion gap [Moles/Vol] 12 mmol/L 5-15 [facility] Automated lymphocyte count a s percentage of total leukocytesOrdered By: Justin Cordero on 12-29-2024 Lymphocytes/100 WBC Auto (Unsp spec) 30.4 % 19-41 [facility] BUN/creatinine ratioOrdered By: Justin Cordero on 12-29-2024 Urea nitrogen/Creatinine [Mass ratio] 7.7 mg/mg Low 10-20 [facility] Basophil percentageOrdered B y: Justin Cordero on 12-29-2024 Basophils/100 WBC (Bld) 0.6 % 0-1 [facility] Bilirubin, totalOrdered By: Justin Cordero on 12-29-2024 Bilirubin [Mass/Vol] 0.19 mg/dL 0.00-1.30 [facility] CBC W/Diff, Automatedon 12-14-2024 Absolute Lymph 3.55 X10 3/uL Normal 0.83-4.51 [facility] Comment on above: Performed By: #### L 500.4050, L100.0100, L501.2450 ####[facility] [address] [place], [address] Absolute Neut 7.2 X10 3/uL Normal 2.0-7.7 [facility] Comment on above: Performed By: #### L 500.4050, L100.0100, L501.2450 ####[facility] [address] [place], [address] Basophils/100 WBC (Bld) 0.6 % Normal 0-1 [facility] Comment on above: Performed By: #### L 500.4050, L100.0100, L501.2450 ####[facility] [address] [place], [address] Eosinophils/100 WBC (Bld) 1.7 % Normal 0-5 [facility] Comment on above: Performed By: #### L 500.4050, L100.0100, L501.2450 ####[facility] [address] [place], [address] Erythrocyte distribution width (RBC) [Ratio] 12.4 % Normal 11.6-14.6 [facility] Comment on above: Performed By: #### L 500.4050, L100.0100, L501.2450 ####[facility] [address] [place], [address] Hematocrit (Bld) [Volume fraction] 43.2 % Normal 40-54 [facility] Comment on above: Performed By: #### L 500.4050, L100.0100, L501.2450 ####[facility] [address] [place], [address] Hemoglobin (Bld) [Mass/Vol] 15.0 g/dL Normal 13.0-16.5 [facility] Comment on above: Performed By: #### L 500.4050, L100.0100, L501.2450 ####[facility] [address] [place], [address] IG% 0.300 Normal 0.0-0.9 [facility] Comment on above: Result Comment: IG% - Immature Granulocytes (promyelocytes, myelocytes and metamyelocytes) > 1% indicates that a LEFT SHIFT is Present. Performed By: #### L 500.4050, L100.0100, L501.2450 ####[facility] [address] [place], [address] Lymphocytes/100 WBC (Bld) 30.4 % Normal 19-41 [facility] Comment on above: Performed By: #### L 500.4050, L100.0100, L501.2450 ####[facility] [address] [place], [address] MCH (RBC) [Entitic mass] 30.7 pg Normal 27.0-32.0 [facility] Comment on above: Performed By: #### L 500.4050, L100.0100, L501.2450 ####[facility] [address] [place], [address] MCHC (RBC) [Mass/Vol] 34.7 g/dL Normal 32-36 [facility] Comment on above: Performed By: #### L 500.4050, L100.0100, L501.2450 ####[facility] [address] [place], [address] MCV (RBC) [Entitic vol] 88.5 fL Normal 80-94 [facility] Comment on above: Performed By: #### L 500.4050, L100.0100, L501.2450 ####[facility] [address] [place], [address] Monocytes/100 WBC (Bld) 5.1 % Normal 0-10 [facility] Comment on above: Performed By: #### L 500.4050, L100.0100, L501.2450 ####[facility] [address] [place], [address] Neutrophils/100 WBC (Bld) 61.9 % Normal 47-70 [facility] Comment on above: Performed By: #### L 500.4050, L100.0100, L501.2450 ####[facility] [address] [place], [address] Nucleated RBC (Bld) [#/Vol] 0 10*3/uL Normal 0-5 [facility] Comment on above: Performed By: #### L 500.4050, L100.0100, L501.2450 ####[facility] [address] [place], [address] Platelet mean volume (Bld) [Entitic vol] 9.5 fL Normal 6.2-12.0 [facility] Comment on above: Performed By: #### L 500.4050, L100.0100, L501.2450 ####[facility] [address] [place], [address] Platelets (Bld) [#/Vol] 295 10*3/uL Normal 150-450 [facility] Comment on above: Performed By: #### L 500.4050, L100.0100, L501.2450 ####[facility] [address] [place], [address] RBC (Bld) [#/Vol] 4.88 10*6/uL Normal 4.6-6.2 [facility] Comment on above: Performed By: #### L 500.4050, L100.0100, L501.2450 ####[facility] [address] [place], [address] RDW SD 40.5 fl Normal 35.1-43.9 [facility] Comment on above: Performed By: #### L 500.4050, L100.0100, L501.2450 ####[facility] [address] [place], [address] WBC (Bld) [#/Vol] 11.7 10*3/uL High 4.4-11.0 [facility] Comment on above: Performed By: #### L 500.4050, L100.0100, L501.2450 ####[facility] [address] [place], [address] Carbon dioxide, total [Moles /volume] in Central venous bloodOrdered By: Justin Cordero on 12-29-2024 CO2 [Moles/Vol] 21.1 mmol/L 21.0-32.0 [facility] Chloride assayOrdered By: Germán Cordero on 12-29-2024 Chloride [Moles/Vol] 103 mmol/L 98-108 [facility] Comprehensive Metabolic Prof ilon 12-29-2024 Albumin [Mass/Vol] 3.8 g/dL Normal 3.5-5.0 [facility] Comment on above: Performed By: #### L 500.4050, L100.0100, L501.2450 ####[facility] [address] [place], [address] ALK PHOS 39 U/L Low 40-129 [facility] Comment on above: Performed By: #### L 500.4050, L100.0100, L501.2450 ####[facility] [address] [place], [address] ALT [Catalytic activity/Vol] 10 U/L Normal <=46 [facility] Comment on above: Performed By: #### L 500.4050, L100.0100, L501.2450 ####[facility] [address] [place], [address] AST [Catalytic activity/Vol] 21 U/L Normal <=37 [facility] Comment on above: Result Comment: Hemo lysis present, Results??could be affected. ?? Performed By: #### L 500.4050, L100.0100, L501.2450 ####[facility] [address] [place], [address] Bilirubin [Mass/Vol] 0.19 mg/dL Normal 0.00-1.30 [facility] Comment on above: Performed By: #### L 500.4050, L100.0100, L501.2450 ####[facility] [address] [place], [address] BUN/CRE 7.7 RATIO Low 10-20 [facility] Comment on above: Performed By: #### L 500.4050, L100.0100, L501.2450 ####[facility] [address] [place], [address] Calcium [Mass/Vol] 9.1 mg/dL Normal 7.6-11.0 [facility] Comment on above: Performed By: #### L 500.4050, L100.0100, L501.2450 ####[facility] [address] [place], [address] Chloride [Moles/Vol] 103 mmol/L Normal 98-108 [facility] Comment on above: Performed By: #### L 500.4050, L100.0100, L501.2450 ####[facility] [address] [place], [address] CO2 [Moles/Vol] 21.1 mmol/L Normal 21.0-32.0 [facility] Comment on above: Performed By: #### L 500.4050, L100.0100, L501.2450 ####[facility] [address] [place], [address] Creatinine [Mass/Vol] 0.79 mg/dL Normal 0.70-1.20 [facility] Comment on above: Performed By: #### L 500.4050, L100.0100, L501.2450 ####[facility] [address] [place], [address] GAP 12 Normal 5-15 [facility] Comment on above: Performed By: #### L 500.4050, L100.0100, L501.2450 ####[facility] [address] [place], [address] GFR/1.73 sq M.predicted among non-blacks MDRD (S/P/Bld) [Vol rate/Area] 112 mL/min/{1.73_m2} Normal >60 [facility] Comment on above: Result Comment: mL/m in/1.73m2 CKD-EPI Creatinine Equation (2020) Performed By: #### L 500.4050, L100.0100, L501.2450 ####[facility] [address] [place], [address] Glucose [Mass/Vol] 100 mg/dL High 70-99 [facility] Comment on above: Performed By: #### L 500.4050, L100.0100, L501.2450 ####[facility] [address] [place], [address] Potassium [Moles/Vol] 4.3 mmol/L Normal 3.3-5.1 [facility] Comment on above: Result Comment: Hemo lysis present, Results??could be affected. ?? Performed By: #### L 500.4050, L100.0100, L501.2450 ####[facility] [address] [place], [address] Sodium [Moles/Vol] 136 mmol/L Normal 133-145 [facility] Comment on above: Performed By: #### L 500.4050, L100.0100, L501.2450 ####[facility] [address] [place], [address] T PROT 6.8 g/dL Normal 5.9-8.4 [facility] Comment on above: Performed By: #### L 500.4050, L100.0100, L501.2450 ####[facility] [address] [place], [address] Urea nitrogen [Mass/Vol] 6 mg/dL Normal 4-19 [facility] Comment on above: Performed By: #### L 500.4050, L100.0100, L501.2450 ####[facility] [address] [place], [address] Emergency Department Summary on 12-29-2024 Emergency Department Summary [facility] Medical Records Department [address] [place] [address] Emergency Department Summary 12/29/24 MR#: [id number] Acct: [id number] Name: PATRICK KOROMA Rep #: [id number] : 1980 44 From: Justin Cordero MD [...] did his other hernia repair surgeries in [place] he was told by him he could do it. He referred him to a surgeon in [place] at and they also told him they were not able to help him. Patient denies any fever. No dysuria. Denies any nausea, vomiting or diarrhea. No back pain. Prior similar symptoms: Yes Recent Ill[facility] Medical History Seroma after procedure Influenza [...] 86 R (more content not included)... Normal [facility] Eosinophil percentageOrdered By: Justin Cordero on 12-29-2024 Eosinophils/100 WBC (Bld) 1.7 % 0-5 [facility] Erythrocyte distribution wid th ratioOrdered By: Justin Cordero on 12-29-2024 Erythrocyte distribution width (RBC) [Ratio] 12.4 % 11.6-14.6 [facility] Erythrocyte distribution wid th standard deviationOrdered By: Justin Cordero on 12-29-2024 Erythrocyte distribution width (RBC) [Ratio] 40.5 fl 35.1-43.9 [facility] Glomerular filtration rate ( GFR) estimation/1.73 sq m using serum, plasma, or whole bOrdered By: Justin Cordero on 12-29-2024 GFR/1.73 sq M.predicted among non-blacks MDRD (S/P/Bld) [Vol rate/Area] 112 mL/min/{1.73_m2} >60 [facility] Comment on above: mL/min/1.73m2 CKD-EP I Creatinine Equation (2020) Hematocrit Auto (Bld) [Volum e fraction]Ordered By: Justin Cordero on 12-29-2024 Hematocrit (Bld) [Volume fraction] 43.2 % 40-54 [facility] Hemoglobin measurementOrdere d By: Justin Cordero on 12-29-2024 Hemoglobin (Bld) [Mass/Vol] 15.0 g/dL 13.0-16.5 [facility] Immature granulocytes/100 WB C Auto (Bld)Ordered By: Justin Cordero on 12-29-2024 Immature granulocytes/100 WBC (Bld) 0.300 % 0.0-0.9 [facility] Comment on above: IG% - Immature Granu locytes (promyelocytes, myelocytes and metamyelocytes) > 1% indicates that a LEFT SHIFT is Present. Laboratory - Chemistry and C hemistry - challengeOrdered By: Justin Cordero on 12-29-2024 AST [Catalytic activity/Vol] 21 U/L <38 [facility] Comment on above: Hemolysis present, R esults could be affected. Lipaseon 12-29-2024 Lipase [Catalytic activity/Vol] 28 U/L Normal 13-75 [facility] Comment on above: Result Comment: Scout kline note: LIPASE revised reference range effective 22. New Lipase methodology. Expected to produce lower values than the previous assay method. NEW Reference Range: 13 - 75 U/L Performed By: #### L 500.4050, L100.0100, L501.2450 ####[facility] [address] [place], [address] Lipase measurementOrdered By : Justin Cordero on 12-29-2024 Lipase [Catalytic activity/Vol] 28 U/L 13-75 [facility] Comment on above: Please note:LIPASE r evised reference range effective 22. New Lipase methodology. Expected to produce lower values than the previous assay method. NEW Reference Range: 13 - 75 U/L MCV (mean corpuscular volume ) determinationOrdered By: Justin Cordero on 12-29-2024 MCV (RBC) [Entitic vol] 88.5 fL 80-94 [facility] Mean corpuscular hemoglobin (MCH) determinationOrdered By: Justin Cordero on 12-29-2024 MCH (RBC) [Entitic mass] 30.7 pg 27.0-32.0 [facility] Mean corpuscular hemoglobin concentration (MCHC) determinationOrdered By: Justin Cordero on 12-29-2024 MCHC (RBC) [Mass/Vol] 34.7 g/dL 32-36 [facility] Mean platelet volume determi nationOrdered By: Justin Cordero on 12-29-2024 Platelet mean volume (Bld) [Entitic vol] 9.5 fL 6.2-12.0 [facility] Monocyte percentageOrdered B y: Justin Cordero on 12-29-2024 Monocytes/100 WBC (Bld) 5.1 % 0-10 [facility] Neutrophil percentageOrdered By: Justin Cordero on 12-29-2024 Neutrophils/100 WBC (Bld) 61.9 % 47-70 [facility] Nucleated red blood cell per centageOrdered By: Justin Cordero on 12-29-2024 Nucleated RBC/100 WBC (Bld) [Ratio] 0 % 0-5 [facility] Platelet countOrdered By: Germán Cordero on 12-29-2024 Platelets (Bld) [#/Vol] 295 10*3/uL 150-450 [facility] Potassium measurement (mass/ volume)Ordered By: Justin Cordero on 12-29-2024 Potassium (Unsp spec) [Mass/Vol] 4.3 mmol/L 3.3-5.1 [facility] Comment on above: Hemolysis present, R esults could be affected. RBC Auto (Bld) [#/Vol]Ordere d By: Justin Cordero on 12-29-2024 RBC (Bld) [#/Vol] 4.88 10*6/uL 4.6-6.2 [facility] Serum creatinine measurement (mass/volume)Ordered By: Justin Cordero on 12-29-2024 Creatinine [Mass/Vol] 0.79 mg/dL 0.70-1.20 [facility] Serum globulin measurementOr dered By: Justin Cordero on 12-29-2024 Globulin (S) [Mass/Vol] 3.0 g/dL 2.2-4.2 [facility] Serum glucose measurement (m ass/volume)Ordered By: Justin Cordero on 12-29-2024 Glucose [Mass/Vol] 100 mg/dL High 70-99 [facility] Serum or plasma alanine carrera otransferase (ALT) measurementOrdered By: Justin Cordero on 12-29-2024 ALT [Catalytic activity/Vol] 10 U/L <47 [facility] Serum or plasma albumin za urement (mass/volume)Ordered By: Justin Cordero on 12-29-2024 Albumin [Mass/Vol] 3.8 g/dL 3.5-5.0 [facility] Serum or plasma albumin/glob ulin mass ratioOrdered By: Justin Cordero on 12-29-2024 Albumin/Globulin [Mass ratio] 1.3 {ratio} 0.9-2.4 [facility] Serum or plasma alkaline carmen sphatase measurementOrdered By: Justin Cordero on 12-29-2024 ALP [Catalytic activity/Vol] 39 U/L Low 40-129 [facility] Serum or plasma calcium za urement (mass/volume)Ordered By: Justin Cordero on 12-29-2024 Calcium [Mass/Vol] 9.1 mg/dL 7.6-11.0 [facility] Serum or plasma urea nitroge n measurement (mass/volume)Ordered By: Justin Cordero on 12-29-2024 Urea nitrogen [Mass/Vol] 6 mg/dL 4-19 [facility] Sodium levelOrdered By: Justin Cordero on 12-29-2024 Sodium [Moles/Vol] 136 mmol/L 133-145 [facility] Total proteinOrdered By: Van Cordero on 12-29-2024 Protein [Mass/Vol] 6.8 g/dL 5.9-8.4 [facility] White blood cell (WBC) count Ordered By: Justin Cordero on 12-29-2024 WBC (Bld) [#/Vol] 11.7 10*3/uL High 4.4-11.0 [facility] Abdomen/Pelvis W IV Cont ONL Yon 12-09-2024 Abdomen/Pelvis W IV Cont ONLY [facility] Imaging Services [address] [place], [place] [address] Abdomen/Pelvis W IV Cont ONLY MR#: [id number] Acct: [id number] Name: PATRICK KOROMA Rep #: [id number] : 1980 M 44 From: Davis mayfield MD PCP: ERIC Anaya Status: [facility] ER Study: Abdomen/Pelvis W IV Cont ONLY Date of Exam: Exam# [id number] Ordering Dr: Guero Baker DO PROCEDURE: ABDOMEN/PELVIS [...] of the stomach, probably gastritis. [facility] CC: ERIC Starkey; Guero Baker DO Motorcycle Subassembler: Signed Normal [facility] Absolute lymphocyte countOrd ered By: Guero Baker on 12-09-2024 Lymphocytes Auto (Unsp spec) [#/Vol] 3.41 10*3/uL 0.83-4.51 [facility] Absolute neutrophil countOrd ered By: Guero Baker on 12-09-2024 Neutrophils (Bld) [#/Vol] 6.8 10*3/uL 2.0-7.7 [facility] Anion gap in Serum or Plasma Ordered By: Guero Baker on 12-09-2024 Anion gap [Moles/Vol] 11 mmol/L 5-15 [facility] Automated lymphocyte count a s percentage of total leukocytesOrdered By: Guero Baker on 12-09-2024 Lymphocytes/100 WBC Auto (Unsp spec) 30.2 % 19-41 [facility] BUN/creatinine ratioOrdered By: Guero Baker on 12-09-2024 Urea nitrogen/Creatinine [Mass ratio] 12.9 mg/mg 10-20 [facility] Basic Metabolic Profile (BMP )on 12-09-2024 GFR/1.73 sq M.predicted among non-blacks MDRD (S/P/Bld) [Vol rate/Area] 108 mL/min/{1.73_m2} Normal >60 [facility] Comment on above: Performed By: #### L 500.3400, L501.2450, L500.2500 ####[facility] [address] [place], [address] Basophil percentageOrdered B y: Guero Baker on 12-09-2024 Basophils/100 WBC (Bld) 0.8 % 0-1 [facility] Bilirubin directOrdered By: Guero Baker on 12-09-2024 Bilirubin.direct [Mass/Vol] mg/dL 0.00-0.30 [facility] Comment on above: Hemolysis present, R esults could be affected. Bilirubin, totalOrdered By: Guero Baker on 12-09-2024 Bilirubin [Mass/Vol] mg/dL 0.00-1.30 [facility] CBC W/Diff, Automatedon 11-15 Absolute Lymph 3.41 X10 3/uL Normal 0.83-4.51 [facility] Comment on above: Performed By: #### L 503.6005, L100.0100 ####[facility] [address] [place], [address] Absolute Neut 6.8 X10 3/uL Normal 2.0-7.7 [facility] Comment on above: Performed By: #### L 503.6005, L100.0100 ####[facility] [address] [place], [address] Basophils/100 WBC (Bld) 0.8 % Normal 0-1 [facility] Comment on above: Performed By: #### L 503.6005, L100.0100 ####[facility] [address] [place], [address] Eosinophils/100 WBC (Bld) 2.0 % Normal 0-5 [facility] Comment on above: Performed By: #### L 503.6005, L100.0100 ####[facility] [address] [place], [address] Erythrocyte distribution width (RBC) [Ratio] 12.4 % Normal 11.6-14.6 [facility] Comment on above: Performed By: #### L 503.6005, L100.0100 ####[facility] [address] [place], [address] Hematocrit (Bld) [Volume fraction] 44.7 % Normal 40-54 [facility] Comment on above: Performed By: #### L 503.6005, L100.0100 ####[facility] [address] [place], [address] Hemoglobin (Bld) [Mass/Vol] 15.2 g/dL Normal 13.0-16.5 [facility] Comment on above: Performed By: #### L 503.6005, L100.0100 ####[facility] [address] [place], [address] IG% 0.400 Normal 0.0-0.9 [facility] Comment on above: Result Comment: IG% - Immature Granulocytes (promyelocytes, myelocytes and metamyelocytes) > 1% indicates that a LEFT SHIFT is Present. Performed By: #### L 503.6005, L100.0100 ####[facility] [address] [place], [address] Lymphocytes/100 WBC (Bld) 30.2 % Normal 19-41 [facility] Comment on above: Performed By: #### L 503.6005, L100.0100 ####[facility] [address] [place], [address] MCH (RBC) [Entitic mass] 31.1 pg Normal 27.0-32.0 [facility] Comment on above: Performed By: #### L 503.6005, L100.0100 ####[facility] [address] [place], [address] MCHC (RBC) [Mass/Vol] 34.0 g/dL Normal 32-36 [facility] Comment on above: Performed By: #### L 503.6005, L100.0100 ####[facility] [address] [place], [address] MCV (RBC) [Entitic vol] 91.4 fL Normal 80-94 [facility] Comment on above: Performed By: #### L 503.6005, L100.0100 ####[facility] [address] [place], [address] Monocytes/100 WBC (Bld) 6.0 % Normal 0-10 [facility] Comment on above: Performed By: #### L 503.6005, L100.0100 ####[facility] [address] [place], [address] Neutrophils/100 WBC (Bld) 60.6 % Normal 47-70 [facility] Comment on above: Performed By: #### L 503.6005, L100.0100 ####[facility] [address] [place], [address] Nucleated RBC (Bld) [#/Vol] 0 10*3/uL Normal 0-5 [facility] Comment on above: Performed By: #### L 503.6005, L100.0100 ####[facility] [address] [place], [address] Platelet mean volume (Bld) [Entitic vol] 9.4 fL Normal 6.2-12.0 [facility] Comment on above: Performed By: #### L 503.6005, L100.0100 ####[facility] [address] [place], [address] Platelets (Bld) [#/Vol] 295 10*3/uL Normal 150-450 [facility] Comment on above: Performed By: #### L 503.6005, L100.0100 ####[facility] [address] [place], [address] RBC (Bld) [#/Vol] 4.89 10*6/uL Normal 4.6-6.2 [facility] Comment on above: Performed By: #### L 503.6005, L100.0100 ####[facility] [address] [place], [address] RDW SD 41.4 fl Normal 35.1-43.9 [facility] Comment on above: Performed By: #### L 503.6005, L100.0100 ####[facility] [address] [place], [address] WBC (Bld) [#/Vol] 11.3 10*3/uL High 4.4-11.0 [facility] Comment on above: Performed By: #### L 503.6005, L100.0100 ####[facility] [address] [place], [address] Carbon dioxide, total [Moles /volume] in Central venous bloodOrdered By: Guero Baker on 12-09-2024 CO2 [Moles/Vol] 23.5 mmol/L 21.0-32.0 [facility] Chloride assayOrdered By: Maru Baker on 12-09-2024 Chloride [Moles/Vol] 106 mmol/L 98-108 [facility] Emergency Department Summary on 12-09-2024 Emergency Department Summary [facility] Medical Records Department [address] [place] [address] Emergency Department Summary 12/09/24 MR#: [id number] Acct: [id number] Name: PATRICK KOROMA Rep #: [id number] : 1980 44 From: Guero Baker DO [...] able to repaired by a specialist at [facility]. He denies any recent trauma but states that he has been having increasing pain in the mid abdomen which feels similar nature to his previous bouts of hernia complication and therefore comes in for evaluation [facility] Medical History Seroma after procedure Influenza [...] ER hyper (more content not included)... Normal [facility] Eosinophil percentageOrdered By: Guero Baker on 12-09-2024 Eosinophils/100 WBC (Bld) 2.0 % 0-5 [facility] Erythrocyte distribution wid th ratioOrdered By: Guero Baker on 12-09-2024 Erythrocyte distribution width (RBC) [Ratio] 12.4 % 11.6-14.6 [facility] Erythrocyte distribution wid th standard deviationOrdered By: Guero Baker on 12-09-2024 Erythrocyte distribution width (RBC) [Ratio] 41.4 fl 35.1-43.9 [facility] Glomerular filtration rate ( GFR) estimation/1.73 sq m using serum, plasma, or whole bOrdered By: Guero Baker on 12-09-2024 GFR/1.73 sq M.predicted among non-blacks MDRD (S/P/Bld) [Vol rate/Area] 108 mL/min/{1.73_m2} >60 [facility] Hematocrit Auto (Bld) [Volum e fraction]Ordered By: Guero Baker on 12-09-2024 Hematocrit (Bld) [Volume fraction] 44.7 % 40-54 [facility] Hemoglobin measurementOrdere d By: Guero Baker on 12-09-2024 Hemoglobin (Bld) [Mass/Vol] 15.2 g/dL 13.0-16.5 [facility] Immature granulocytes/100 WB C Auto (Bld)Ordered By: Guero Baker on 12-09-2024 Immature granulocytes/100 WBC (Bld) 0.400 % 0.0-0.9 [facility] Comment on above: IG% - Immature Granu locytes (promyelocytes, myelocytes and metamyelocytes) > 1% indicates that a LEFT SHIFT is Present. Laboratory - Chemistry and C hemistry - challengeOrdered By: Guero Baker on 12-09-2024 AST [Catalytic activity/Vol] 17 U/L <38 [facility] Comment on above: Hemolysis present, R esults could be affected. Lactic Acidon 12-09-2024 Lactate [Moles/Vol] 1.1 mmol/L Normal 0.0-2.0 [facility] Comment on above: Order Comment: Y Performed By: #### L 503.6005, L100.0100 ####[facility] [address] [place], [place], [address] Lactic acid measurementOrder ed By: Guero Baker on 12-09-2024 Lactate [Moles/Vol] 1.1 mmol/L 0.0-2.0 [facility] Lipaseon 12-09-2024 Lipase [Catalytic activity/Vol] 36 U/L Normal 13-75 [facility] Comment on above: Result Comment: Scout kline note: LIPASE revised reference range effective 22. New Lipase methodology. Expected to produce lower values than the previous assay method. NEW Reference Range: 13 - 75 U/L Performed By: #### L 500.3400, L501.2450, L500.2500 ####[facility] [address] [place], [address] Lipase measurementOrdered By : Guero Baker on 12-09-2024 Lipase [Catalytic activity/Vol] 36 U/L 13-75 [facility] Comment on above: Please note:LIPASE r evised reference range effective 22. New Lipase methodology. Expected to produce lower values than the previous assay method. NEW Reference Range: 13 - 75 U/L Liver Profileon 12-09-2024 Albumin [Mass/Vol] 3.7 g/dL Normal 3.5-5.0 [facility] Comment on above: Performed By: #### L 500.3400, L501.2450, L500.2500 ####[facility] [address] [place], [address] ALK PHOS 42 U/L Normal 40-129 [facility] Comment on above: Performed By: #### L 500.3400, L501.2450, L500.2500 ####[facility] [address] [place], [address] ALT [Catalytic activity/Vol] 15 U/L Normal <=46 [facility] Comment on above: Performed By: #### L 500.3400, L501.2450, L500.2500 ####[facility] [address] [place], [address] AST [Catalytic activity/Vol] 17 U/L Normal <=37 [facility] Comment on above: Result Comment: Hemo lysis present, Results??could be affected. ?? Performed By: #### L 500.3400, L501.2450, L500.2500 ####[facility] [address] [place], [address] D BILI < 0.08 Normal 0.00-0.30 [facility] Comment on above: Result Comment: Hemo lysis present, Results??could be affected. ?? Performed By: #### L 500.3400, L501.2450, L500.2500 ####[facility] [address] [place], [address] Globulin (S) [Mass/Vol] 2.8 g/dL Normal 2.2-4.2 [facility] Comment on above: Performed By: #### L 500.3400, L501.2450, L500.2500 ####[facility] [address] [place], [address] T BILI < 0.15 Normal 0.00-1.30 [facility] Comment on above: Performed By: #### L 500.3400, L501.2450, L500.2500 ####[facility] [address] [place], [address] T PROT 6.5 g/dL Normal 5.9-8.4 [facility] Comment on above: Performed By: #### L 500.3400, L501.2450, L500.2500 ####[facility] [address] [place], [address] MCV (mean corpuscular volume ) determinationOrdered By: Guero Baker on 12-09-2024 MCV (RBC) [Entitic vol] 91.4 fL 80-94 [facility] Mean corpuscular hemoglobin (MCH) determinationOrdered By: Guero Baker on 12-09-2024 MCH (RBC) [Entitic mass] 31.1 pg 27.0-32.0 [facility] Mean corpuscular hemoglobin concentration (MCHC) determinationOrdered By: Guero Baker on 12-09-2024 MCHC (RBC) [Mass/Vol] 34.0 g/dL 32-36 [facility] Mean platelet volume determi nationOrdered By: Guero Baker on 12-09-2024 Platelet mean volume (Bld) [Entitic vol] 9.4 fL 6.2-12.0 [facility] Monocyte percentageOrdered B y: Guero Baker on 12-09-2024 Monocytes/100 WBC (Bld) 6.0 % 0-10 [facility] Neutrophil percentageOrdered By: Guero Baker on 12-09-2024 Neutrophils/100 WBC (Bld) 60.6 % 47-70 [facility] Nucleated red blood cell per centageOrdered By: Guero Baker on 12-09-2024 Nucleated RBC/100 WBC (Bld) [Ratio] 0 % 0-5 [facility] Platelet countOrdered By: Maru Baker on 12-09-2024 Platelets (Bld) [#/Vol] 295 10*3/uL 150-450 [facility] Potassium measurement (mass/ volume)Ordered By: Guero Baker on 12-09-2024 Potassium (Unsp spec) [Mass/Vol] 4.0 mmol/L 3.3-5.1 [facility] Comment on above: Hemolysis present, R esults could be affected. RBC Auto (Bld) [#/Vol]Ordere d By: Guero Baker on 12-09-2024 RBC (Bld) [#/Vol] 4.89 10*6/uL 4.6-6.2 [facility] Serum creatinine measurement (mass/volume)Ordered By: Guero Baker on 12-09-2024 Creatinine [Mass/Vol] 0.87 mg/dL 0.70-1.20 [facility] Serum globulin measurementOr dered By: Guero Baker on 12-09-2024 Globulin (S) [Mass/Vol] 2.8 g/dL 2.2-4.2 [facility] Serum glucose measurement (m ass/volume)Ordered By: Guero Baker on 12-09-2024 Glucose [Mass/Vol] 105 mg/dL High 70-99 [facility] Serum or plasma alanine carrera otransferase (ALT) measurementOrdered By: Guero Baker on 12-09-2024 ALT [Catalytic activity/Vol] 15 U/L <47 [facility] Serum or plasma albumin za urement (mass/volume)Ordered By: Guero Baker on 12-09-2024 Albumin [Mass/Vol] 3.7 g/dL 3.5-5.0 [facility] Serum or plasma alkaline carmen sphatase measurementOrdered By: Guero Baker on 12-09-2024 ALP [Catalytic activity/Vol] 42 U/L 40-129 [facility] Serum or plasma calcium za urement (mass/volume)Ordered By: Guero Baker on 12-09-2024 Calcium [Mass/Vol] 8.7 mg/dL 7.6-11.0 [facility] Serum or plasma urea nitroge n measurement (mass/volume)Ordered By: Guero Baker on 12-09-2024 Urea nitrogen [Mass/Vol] 11 mg/dL 4-19 [facility] Sodium levelOrdered By: Scott Baker on 12-09-2024 Sodium [Moles/Vol] 140 mmol/L 133-145 [facility] Total proteinOrdered By: Yovani Baker on 12-09-2024 Protein [Mass/Vol] 6.5 g/dL 5.9-8.4 [facility] White blood cell (WBC) count Ordered By: Guero Baker on 12-09-2024 WBC (Bld) [#/Vol] 11.3 10*3/uL High 4.4-11.0 [facility] Emergency Department Summary on 12-07-2024 Emergency Department Summary [facility] Medical Records Department [address] [place] [address] Emergency Department Summary 12/07/24 MR#: [id number] Acct: [id number] Name: PATRICK KOROMA Rep #: [id number] : 1980 44 From: Guevara Choi MD PCP: ERIC Anaya Status:REG ER Location: ED HPI History of Present Illness Chief Complaint: Upper Extremity Injury Informant: patient Narrative Narrative: During tear down of a car level traction at the [facility], patient states he smashed his right thumb between 2 metal poles on accident. [facility]kcal[facility]fu[facility]hlbb[facility] Medical History Seroma after procedure Influenza [...] abnormality of the right hand. Reading Location: [facility] Discharge Plan Triage Chief Complaint: Upper Extremity Injury ED Provider: Guevara Choi Dx/Rx/DC Orders Clinical Impression: Contusion of right thumb with damage to nail, initial encounter Instructions: ED Finger or Toe Contusion Prescriptions: No Action NK Primary Care Provider: Viola Starkey NP Referrals: Viola Starkey NP, INSTRUMENT PROCESSING TECH-C [Primary Care Provider] - 10-14 Days if not better Print La (more content not included)... Normal [facility] Hand Min 3 Viewson 5 Hand Min 3 Views [facility] Imaging Services [address] [place], [place] [address] Hand Min 3 Views MR#: [id number] Acct: [id number] Name: PATRICK KOROMA Rep #: [id number] : 1980 M 44 From: Stephan Ba MD PCP: ERIC Anaya Status: PRE ER Study: Hand Min 3 Views Date of Exam: 12/06/24 Exam# [id number] Ordering Dr: Guevara Choi MD PROCEDURE: HAND MIN 3 VIEWS 12/06/2024 REASON FOR EXAM: INJURY TECHNIQUE: HAND MIN 3 VIEWS COMPARISON: None FINDINGS: No fracture or traumatic malalignment. Joint spaces are predominantly maintained. Bone mineral density is subjectively normal. The soft tissues are unremarkable. RAD/Hand Min 3 Views IMPRESSION: No acute osseous abnormality of the right hand. Reading Location: [id number] CC: INSTRUMENT PROCESSING TECH-Marielos Starkey; Dr. Guevara Choi MD Motorcycle Subassembler: Signed Normal [facility] Clavicleon 09-19-2024 Clavicle [facility] Imaging Services [address] [place] [address] Clavicle MR#: [id number] Acct: [id number] Name: PATRICK KOROMA Rep #: [id number] : 1980 M 44 From: Kalli Tena DO PCP: ERIC Anaya Status: REG ER Study: Clavicle Date of Exam: 09/19/24 Exam# [id number] Ordering Dr: Brian Maldonado MD PROCEDURE: CLAVICLE 09/19/2024 REASON FOR EXAM: TRAUMA TECHNIQUE: Two views of the right clavicle were obtained COMPARISON: None FINDINGS: Bones: No acute fracture. Joints: Joint spaces are preserved. Soft tissues: No soft tissue abnormality. RAD/Clavicle IMPRESSION: NO EVIDENCE OF CLAVICLE FRACTURE Reading Location: [facility] CC: ERIC Starkey; Dr. Brian Maldonado MD Motorcycle Subassembler: Signed Normal [facility] Emergency Department Summary on 09-19-2024 Emergency Department Summary [facility] Medical Records Department [address] [place] [address] Emergency Department Summary 09/19/24 MR#: [id number] Acct: [id number] Name: PATRICK KOROMA Rep #: [id number] : 1980 44 From: Brian Maldonado MD PCP: ERIC Anaya Status:REG ER Location: ED HPI History of Present Illness Chief Complaint: Upper Extremity Injury Narrative Narrative: 44-year-old male, bzedb-ihdm-pnspgxdk, presents with injury to his right shoulder [...] raise his right arm. Denies other injuries. [facility] Medical History Seroma after procedure Influenza [...] clavicle and shoulder pain worse with movement. Ckohp-jnol-dfaeimsn. Denies hitting of his head or loss [...] AC joint separation. Patient was given 1 [place] tablet here for analgesia and x-rays obtained [...] not improving. I feel he can take rrxo-hzx-mfmupvh medications for analgesia. Return instructions to the emergency department were reviewed. Disposition is discharged home in stable condition. History Recor (more content not included)... Normal [facility] Shoulder min 2 Viewson 09-19 Shoulder min 2 Views [facility] Imaging Services [address] [place], [place] [address] Shoulder min 2 Views MR#: [id number] Acct: [id number] Name: SANTANAZARIOPATRICK FERMÍN Rep #: [id number] : 1980 M 44 From: Kalli Tena DO PCP: ERIC Anaya Status: REG ER Study: Shoulder min 2 Views Date of Exam: 09/19/24 Exam# [id number] Ordering Dr: Brian Maldonado MD PROCEDURE: SHOULDER MIN 2 VIEWS 09/19/2024 REASON FOR EXAM: TRAUMA TECHNIQUE: 4 view(s) of the right shoulder COMPARISON: None FINDINGS: Bones: No acute fracture. Joints: Normal alignment of the acromioclavicular and glenohumeral joints. Soft tissues: Soft tissues are unremarkable. Other: RAD/Shoulder min 2 Views IMPRESSION: NO ACUTE FRACTURE OR DISLOCATION. Reading Location: [facility] CC: INSTRUMENT PROCESSING TECH-C Viola Starkey; Dr. Brian Maldonado MD Motorcycle Subassembler: Signed Normal [facility] .Auto Diffon 09-08-2024 Basophil, Absolute 0.1 10 3/mcL Normal 0.0-0.2 [facility] Comment on above: Performed By: #### C BC, ADIFF, ANEU, CMP, GFR, LIPID #### [address] [address] Basophils/100 WBC (Bld) 1.0 % Normal 0.0-2.5 [facility] Comment on above: Performed By: #### C BC, ADIFF, ANEU, CMP, GFR, LIPID #### [address] [address] Eosinophil, Absolute 0.1 10 3/mcL Normal 0.0-0.7 [facility] Comment on above: Performed By: #### C BC, ADIFF, ANEU, CMP, GFR, LIPID #### [address] [address] Eosinophils/100 WBC (Bld) 0.8 % Normal 0.0-7.0 [facility] Comment on above: Performed By: #### C BC, ADIFF, ANEU, CMP, GFR, LIPID #### [address] [address] Lymphocyte, Absolute 2.2 10 3/mcL Normal 0.9-4.3 [facility] Comment on above: Performed By: #### C BC, ADIFF, ANEU, CMP, GFR, LIPID #### [address] [address] Lymphocytes/100 WBC (Bld) 17.9 % Low 20.0-40.0 [facility] Comment on above: Performed By: #### C BC, ADIFF, ANEU, CMP, GFR, LIPID #### [address] [address] Monocyte, Absolute 0.8 10 3/mcL Normal 0.1-1.4 [facility] Comment on above: Performed By: #### C BC, ADIFF, ANEU, CMP, GFR, LIPID #### [address] [address] Monocytes/100 WBC (Bld) 6.5 % Normal 2.0-13.0 [facility] Comment on above: Performed By: #### C BC, ADIFF, ANEU, CMP, GFR, LIPID #### [address] [address] Neutrophils/100 WBC (Bld) 73.8 % Normal 50.0-75.0 [facility] Comment on above: Performed By: #### C BC, ADIFF, ANEU, CMP, GFR, LIPID #### [address] [address] .GFRon 09-08-2024 Estimated Glomerular Filtration Rate 99 ml/min/1.73sqm Normal [facility] Comment on above: Result Comment: Stages [...] calculate the eGFR results. Performed By: #### C BC, ADIFF, ANEU, CMP, GFR, LIPID #### [address] [address] .NEUABSon 09-08-2024 Neutrophil, Absolute 9.2 10 3/mcL High 2.3-8.1 [facility] Comment on above: Performed By: #### C BC, ADIFF, ANEU, CMP, GFR, LIPID #### [place] [address] CBCon 09-08-2024 Erythrocyte distribution width (RBC) [Ratio] 13.3 % Normal 11.5-15.5 [facility] Comment on above: Performed By: #### C BC, ADIFF, ANEU, CMP, GFR, LIPID #### [place] [address] Hematocrit (Bld) [Volume fraction] 45.6 % Normal 40.0-52.0 [facility] Comment on above: Performed By: #### C BC, ADIFF, ANEU, CMP, GFR, LIPID #### [place] [address] Hgb 15.3 G/dL Normal 13.0-17.5 [facility] Comment on above: Performed By: #### C BC, ADIFF, ANEU, CMP, GFR, LIPID #### [place] [address] MCH (RBC) [Entitic mass] 31.0 pg Normal 27.0-33.0 [facility] Comment on above: Performed By: #### C BC, ADIFF, ANEU, CMP, GFR, LIPID #### [place] [address] MCHC 33.5 G/dL Normal 32.0-36.0 [facility] Comment on above: Performed By: #### C BC, ADIFF, ANEU, CMP, GFR, LIPID #### [address] [address] MCV (RBC) [Entitic vol] 92.3 fL Normal 81.0-100.0 [facility] Comment on above: Performed By: #### C BC, ADIFF, ANEU, CMP, GFR, LIPID #### [address] [address] Platelet 297 10 3/mcL Normal 150-450 [facility] Comment on above: Performed By: #### C BC, ADIFF, ANEU, CMP, GFR, LIPID #### [address] [address] Platelet mean volume (Bld) [Entitic vol] 8.0 fL Normal 6.4-10.5 [facility] Comment on above: Performed By: #### C BC, ADIFF, ANEU, CMP, GFR, LIPID #### [address] [address] RBC 4.94 10 6/mcL Normal 4.50-6.00 [facility] Comment on above: Performed By: #### C BC, ADIFF, ANEU, CMP, GFR, LIPID #### [address] [address] WBC 12.5 10 3/mcL High 4.5-10.8 [facility] Comment on above: Performed By: #### C BC, ADIFF, ANEU, CMP, GFR, LIPID #### [address] [address] CMPon 09-08-2024 Albumin Level 3.7 G/dL Normal 3.5-5.0 [facility] Comment on above: Performed By: #### C BC, ADIFF, ANEU, CMP, GFR, LIPID #### [address] [address] Albumin/Globulin [Mass ratio] 0.9 {ratio} Low 1.1-2.5 [facility] Comment on above: Performed By: #### C BC, ADIFF, ANEU, CMP, GFR, LIPID #### [address] [address] ALP [Catalytic activity/Vol] 51 U/L Normal 40-135 [facility] Comment on above: Performed By: #### C BC, ADIFF, ANEU, CMP, GFR, LIPID #### [address] [address] ALT [Catalytic activity/Vol] 17 U/L Normal 16-63 [facility] Comment on above: Performed By: #### C BC, ADIFF, ANEU, CMP, GFR, LIPID #### [address] [address] AST [Catalytic activity/Vol] 15 U/L Normal 10-40 [facility] Comment on above: Performed By: #### C BC, ADIFF, ANEU, CMP, GFR, LIPID #### [address] [address] Bili Total 0.2 mg/dL Normal 0.2-1.0 [facility] Comment on above: Result Comment: Use of this assay is not recommended for patients undergoing treatment with eltrombopag due to the potential for falsely elevated results. Performed By: #### C BC, ADIFF, ANEU, CMP, GFR, LIPID #### [place] [address] BUN/Creatinine Ratio 11 ratio Normal 7-27 [facility] Comment on above: Performed By: #### C BC, ADIFF, ANEU, CMP, GFR, LIPID #### [address] [address] Calcium [Mass/Vol] 9.7 mg/dL Normal 8.4-10.2 [facility] Comment on above: Performed By: #### C BC, ADIFF, ANEU, CMP, GFR, LIPID #### [address] [address] Chloride [Moles/Vol] 99 mmol/L Normal 98-107 [facility] Comment on above: Performed By: #### C BC, ADIFF, ANEU, CMP, GFR, LIPID #### [address] [address] CO2 [Moles/Vol] 27 mmol/L Normal 22-29 [facility] Comment on above: Performed By: #### C BC, ADIFF, ANEU, CMP, GFR, LIPID #### [address] [address] Creatinine [Mass/Vol] 0.96 mg/dL Normal 0.70-1.30 [facility] Comment on above: Result Comment: Test ing performed on Siemens Dimension EXL analyzer using a modified kinetic Elyse technique. Performed By: #### C BC, ADIFF, ANEU, CMP, GFR, LIPID #### [address] [address] Electrolyte Balance 8.0 mEq/L Normal 4.0-15.0 [facility] Comment on above: Performed By: #### C BC, ADIFF, ANEU, CMP, GFR, LIPID #### [address] [address] Globulin 4.0 G/dL High 1.5-3.8 [facility] Comment on above: Performed By: #### C BC, ADIFF, ANEU, CMP, GFR, LIPID #### [address] [address] Glucose [Mass/Vol] 91 mg/dL Normal 70-105 [facility] Comment on above: Performed By: #### C BC, ADIFF, ANEU, CMP, GFR, LIPID #### [address] [address] Potassium [Moles/Vol] 4.4 mmol/L Normal 3.5-5.1 [facility] Comment on above: Performed By: #### C BC, ADIFF, ANEU, CMP, GFR, LIPID #### [address] [address] Sodium [Moles/Vol] 134 mmol/L Low 136-145 [facility] Comment on above: Performed By: #### C BC, ADIFF, ANEU, CMP, GFR, LIPID #### [address] [address] Total Protein 7.7 G/dL Normal 6.4-8.2 [facility] Comment on above: Performed By: #### C BC, ADIFF, ANEU, CMP, GFR, LIPID #### [address] [address] Urea nitrogen [Mass/Vol] 11 mg/dL Normal 7-18 [facility] Comment on above: Performed By: #### C BC, ADIFF, ANEU, CMP, GFR, LIPID #### [address] [address] LIPIDon 09-08-2024 Cholesterol [Mass/Vol] 177 mg/dL Normal 0-200 [facility] Comment on above: Result Comment: Chol esterol Reference Interval: Less than 200 Desirable 200-239 Borderline high risk 240 and above High risk Performed By: #### C BC, ADIFF, ANEU, CMP, GFR, LIPID #### [address] [address] Cholesterol in HDL [Mass/Vol] 44 mg/dL Normal 40-60 [facility] Comment on above: Performed By: #### C BC, ADIFF, ANEU, CMP, GFR, LIPID #### [address] [address] Cholesterol in LDL [Mass/Vol] 108 mg/dL Normal 0-130 [facility] Comment on above: Performed By: #### C BC, ADIFF, ANEU, CMP, GFR, LIPID #### [address] [address] Triglyceride [Mass/Vol] 125 mg/dL Normal 0-150 [facility] Comment on above: Result Comment: Trig lyceride Reference Interval: Less than 150 Normal 150-199 Borderline high risk 200-499 High risk 500 or higher Very high risk Performed By: #### C BC, ADIFF, ANEU, CMP, GFR, LIPID #### [address] [address] XR FOOT MINIMUM 3 VIEWS LEFT on [...] 09/08/2024 12:53:40 AM Ordering Provider: SHANIKA Nelson [facility] Emergency Department Summary on 08-24-2024 Emergency Department Summary [facility] Medical Records Department [address] [place] [address] Emergency Department Summary 08/24/24 MR#: [id number] Acct: [id number] Name: PATRICK KOROMA Rep #: [id number] : 1980 44 From: Cristian Tate PCP: Care Physician,No Primary Status:DEP ER Location: ED HPI History of Present Illness Chief Complaint: Upper Extremity Injury Informant: patient Narrative Narrative: Olsop-rcjz-arcpqoqd male presents right shoulder injury 2 hours [...] No surgical intervention. Prior similar symptoms: Yes [facility] Medical History Seroma after procedure Influenza [...] Medical decision (more content not included)... Normal [facility] Shoulder min 2 Viewson 08-24 Shoulder min 2 Views [facility] Imaging Services [address] [place], [place] [address] Shoulder min 2 Views MR#: [id number] Acct: [id number] Name: PATRICK KOROMA Rep #: [id number] : 1980 M 44 From: Ke Mario PCP: Care Physician,No Primary Status: PRE ER Study: Shoulder min 2 Views Date of Exam: 08/24/24 Exam# [id number] Ordering Dr: Provider,Ed P. PROCEDURE: Right shoulder radiographs REASON FOR EXAM: PAIN, LOSS OF MOBILITY TECHNIQUE: Four views of the right shoulder COMPARISON: None. FINDINGS: See impression RAD/Shoulder min 2 Views IMPRESSION: Negative for acute fracture or malalignment. 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 Mild acromioclavicular joint osteoarthritis. 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 Study Interpretation of outs augusta studyon [...] 05/16/2024 10:27:09 PM Ordering Provider: RADHA Nelson [facility] CNCOon 10-21-2023 CNCO Letter Text Normal [facility] Cheikh 10-10-2023 CNPN Telephone (SPNSMN) VALDOPATRICK OLIVIER ([id number]) 1980 M Date Time Provider Department 10/10/23 JULIOCESAR BORRERO [facility] During your visit today, we recorded [...] message sent. Christy Rodrigez RN BSN Nurse Gas Processing Plant Operator Christy Rodrigez RN 10/21/2023 10:47 AM Signed [...] Dr. Hannah. Christy Rodrigez RN BSN Nurse Gas Processing Plant Operator Allergies As of Date: 10/10/2023 Noted Allergy Reaction ADHESIVE TAPE-SILICONES 10/23/2016 4 - Hives KEFLEX (CEPHALEXIN) 11/12/2016 4 - Hives KEPPRA (LEVETIRACETAM) 10/23/2016 4 - Hives MORPHINE 10/23/2016 10 - Anaphylaxis NAPROXEN 07/08/2017 4 - Hives Date Reviewed: 10/07/2023 Reviewed by: Britney Juarez RN - Fully Assessed Reason for Visit: Care Coordination [5041] Prescriptions as of 11/04/2023 - gabapentin (NEURONTIN) [...] Status:Closed by CHRISTY RODRIGEZ on 11/04/23 Normal [facility] CONFIRM BLOOD TYPEon 024 ABO B Normal [facility] Comment on above: Order Comment: Speci men Type: BLOOD SPECIMEN Ordering Facility: [facility] Address: [address] [place] [address] Performed By: #### C ONABO #### [facility] [place] [id number] [address] [place] [address] [place] Rh Nom (Bld) Positive Normal [facility] Comment on above: Order Comment: Speci men Type: BLOOD SPECIMEN Ordering Facility: [facility] Address: [address] [place] [address] Performed By: #### C ONABO #### [facility] CLIA [id number] [address] [place] [address] [place] NURSING PROGon 10-07-2023 NURSING PROG HNO ID: [id number] Author: LESLIE JARRETT, RN Service: ? Author Type: Registered Nurse [...] was completed by: Leslie Jarrett RN Normal [facility] CBC W Auto Differential pane l (Bld)on 09-16-2023 Basophils (Bld) [#/Vol] 0.06 10*3/uL Normal <0.11 [facility] Comment on above: Order Comment: Speci men Type: BLOOD SPECIMEN Ordering Facility: [facility] Address: [address] [place] [address] Performed By: #### C ONABO #### [facility] CLIA [id number] [address] [place] [address] [place] Basophils/100 WBC (Bld) 0.6 % Normal [facility] Comment on above: Order Comment: Speci men Type: BLOOD SPECIMEN Ordering Facility: [facility] Address: [address] [place] [address] Performed By: #### C ONABO #### [facility] CLIA [id number] [address] [place] [address] [place] Differential cell count method Nom (Bld) Auto Normal [facility] Comment on above: Order Comment: Speci men Type: BLOOD SPECIMEN Ordering Facility: [facility] Address: [address] [place] [address] Performed By: #### C ONABO #### [facility] CLIA [id number] [address] [place] [address] [place] Eosinophils (Bld) [#/Vol] 0.09 10*3/uL Normal <0.46 [facility] Comment on above: Order Comment: Speci men Type: BLOOD SPECIMEN Ordering Facility: [facility] Address: [address] [place] [address] Performed By: #### C ONABO #### [facility] CLIA [id number] [address] [place] [address] [place] Eosinophils/100 WBC (Bld) 1.0 % Normal [facility] Comment on above: Order Comment: Speci men Type: BLOOD SPECIMEN Ordering Facility: [facility] Address: [address] [place] [address] Performed By: #### C ONABO #### [facility] CLIA [id number] [address] [place] [address] [place] Erythrocyte distribution width (RBC) [Ratio] 12.5 % Normal 11.5-15.0 [facility] Comment on above: Order Comment: Speci men Type: BLOOD SPECIMEN Ordering Facility: [facility] Address: [address] [place] [address] Performed By: #### C ONABO #### [facility] CLIA [id number] [address] [place] [address] [place] Hematocrit (Bld) [Volume fraction] 47.3 % Normal 39.0-51.0 [facility] Comment on above: Order Comment: Speci men Type: BLOOD SPECIMEN Ordering Facility: [facility] Address: [address] [place] [address] Performed By: #### C ONABO #### [facility] CLIA [id number] [address] [place] [address] [place] Hemoglobin (Bld) [Mass/Vol] 16.1 g/dL Normal 13.0-17.0 [facility] Comment on above: Order Comment: Speci men Type: BLOOD SPECIMEN Ordering Facility: [facility] Address: [address] [place] [address] Performed By: #### C ONABO #### [facility] CLIA [id number] [address] [place] [address] [place] Immature granulocytes (Bld) [#/Vol] 0.03 10*3/uL Normal <0.10 [facility] Comment on above: Order Comment: Speci men Type: BLOOD SPECIMEN Ordering Facility: [facility] Address: [address] [place] [address] Performed By: #### C ONABO #### [facility] CLIA [id number] [address] [place] [address] [place] Immature granulocytes/100 WBC (Bld) 0.3 % Normal [facility] Comment on above: Order Comment: Speci men Type: BLOOD SPECIMEN Ordering Facility: [facility] Address: [address] [place] [address] Performed By: #### C ONABO #### [facility] CLIA [id number] [address] [place] [address] [place] Lymphocytes (Bld) [#/Vol] 2.61 10*3/uL Normal 1.00-4.00 [facility] Comment on above: Order Comment: Speci men Type: BLOOD SPECIMEN Ordering Facility: [facility] Address: [address] [place] [address] Performed By: #### C ONABO #### [facility] CLIA [id number] [address] [place] [address] [place] Lymphocytes/100 WBC (Bld) 28.2 % Normal [facility] Comment on above: Order Comment: Speci men Type: BLOOD SPECIMEN Ordering Facility: [facility] Address: [address] [place] [address] Performed By: #### C ONABO #### [facility] CLIA [id number] [address] [place] [address] [place] MCH (RBC) [Entitic mass] 31.0 pg Normal 26.0-34.0 [facility] Comment on above: Order Comment: Speci men Type: BLOOD SPECIMEN Ordering Facility: [facility] Address: [address] [place] [address] Performed By: #### C ONABO #### [facility] CLIA [id number] [address] [place] [address] [place] MCHC (RBC) [Mass/Vol] 34.0 g/dL Normal 30.5-36.0 [facility] Comment on above: Order Comment: Speci men Type: BLOOD SPECIMEN Ordering Facility: [facility] Address: [address] [place] [address] Performed By: #### C ONABO #### [facility] CLIA [id number] [address] [place] [address] [place] MCV (RBC) [Entitic vol] 91.1 fL Normal 80.0-100.0 [facility] Comment on above: Order Comment: Speci men Type: BLOOD SPECIMEN Ordering Facility: [facility] Address: [address] [place] [address] Performed By: #### C ONABO #### [facility] CLIA [id number] [address] [place] [address] [place] Monocytes (Bld) [#/Vol] 0.51 10*3/uL Normal <0.87 [facility] Comment on above: Order Comment: Speci men Type: BLOOD SPECIMEN Ordering Facility: [facility] Address: [address] [place] [address] Performed By: #### C ONABO #### [facility] CLIA [id number] [address] [place] [address] [place] Monocytes/100 WBC (Bld) 5.5 % Normal [facility] Comment on above: Order Comment: Speci men Type: BLOOD SPECIMEN Ordering Facility: [facility] Address: [address] [place] [address] Performed By: #### C ONABO #### [facility] CLIA [id number] [address] [place] [address] [place] Neutrophils (Bld) [#/Vol] 5.94 10*3/uL Normal 1.45-7.50 [facility] Comment on above: Order Comment: Speci men Type: BLOOD SPECIMEN Ordering Facility: [facility] Address: [address] [place] [address] Performed By: #### C ONABO #### [facility] CLIA [id number] [address] [id number], [place] [address] [place] Neutrophils/100 WBC (Bld) 64.4 % Normal [facility] Comment on above: Order Comment: Speci men Type: BLOOD SPECIMEN Ordering Facility: [facility] Address: [address] [place] [address] Performed By: #### C ONABO #### [facility] CLIA [id number] [address] [place] [address] [place] Nucleated RBC (Bld) [#/Vol] 10*3/uL Normal <0.01 [facility] Comment on above: Order Comment: Speci men Type: BLOOD SPECIMEN Ordering Facility: [facility] Address: [address] [place] [address] Performed By: #### C ONABO #### [facility] CLIA [id number] [address] [place] [address] [place] Nucleated RBC/100 WBC (Bld) [Ratio] 0.0 /100 WBC Normal [facility] Comment on above: Order Comment: Speci men Type: BLOOD SPECIMEN Ordering Facility: [facility] Address: [address] [place] [address] Performed By: #### C ONABO #### [facility] CLIA [id number] [address] [place] [address] [place] Platelet mean volume (Bld) [Entitic vol] 9.6 fL Normal 9.0-12.7 [facility] Comment on above: Order Comment: Speci men Type: BLOOD SPECIMEN Ordering Facility: [facility] Address: [address] [place] [address] Performed By: #### C ONABO #### [facility] CLIA [id number] [address] [place] [address] [place] Platelets (Bld) [#/Vol] 307 10*3/uL Normal 150-400 [facility] Comment on above: Order Comment: Speci men Type: BLOOD SPECIMEN Ordering Facility: [facility] Address: [address] [place] [address] Performed By: #### C ONABO #### [facility] CLIA [id number] [address] [place] [address] [place] RBC (Bld) [#/Vol] 5.19 10*6/uL Normal 4.20-6.00 [facility] Comment on above: Order Comment: Speci men Type: BLOOD SPECIMEN Ordering Facility: [facility] Address: [address] [place] [address] Performed By: #### C ONABO #### [facility] CLIA [id number] [address] [place] [address] [place] WBC (Bld) [#/Vol] 9.24 10*3/uL Normal 3.70-11.00 [facility] Comment on above: Order Comment: Speci men Type: BLOOD SPECIMEN Ordering Facility: [facility] Address: [address] [place] [address] Performed By: #### C ONABO #### [facility] CLIA [id number] [address] [place] [address] [place] Comprehensive metabolic 2000 panelon 09-16-2023 Albumin [Mass/Vol] 4.1 g/dL Normal 3.9-4.9 [facility] Comment on above: Order Comment: Speci men Type: BLOOD SPECIMEN Ordering Facility: [facility] Address: [address] [place] [address] Performed By: #### C ONABO #### [facility] CLIA [id number] [address] [place] [address] [place] ALP [Catalytic activity/Vol] 46 U/L Normal 38-113 [facility] Comment on above: Order Comment: Speci men Type: BLOOD SPECIMEN Ordering Facility: [facility] Address: [address] [place] [address] Performed By: #### C ONABO #### [facility] CLIA [id number] [address] [place] [address] [place] ALT [Catalytic activity/Vol] 21 U/L Normal 10-54 [facility] Comment on above: Order Comment: Speci men Type: BLOOD SPECIMEN Ordering Facility: [facility] Address: [address] [place] [address] Performed By: #### C ONABO #### [facility] CLIA [id number] [address] [place] [address] [place] Anion gap [Moles/Vol] 12 mmol/L Normal 9-18 [facility] Comment on above: Order Comment: Speci men Type: BLOOD SPECIMEN Ordering Facility: [facility] Address: [address] [place] [address] Performed By: #### C ONABO #### [facility] CLIA [id number] [address] [place] [address] [place] AST [Catalytic activity/Vol] 19 U/L Normal 14-40 [facility] Comment on above: Order Comment: Speci men Type: BLOOD SPECIMEN Ordering Facility: [facility] Address: [address] [place] [address] Performed By: #### C ONABO #### [facility] CLIA [id number] [address] [place] [address] [place] Bilirubin [Mass/Vol] 0.2 mg/dL Normal 0.2-1.3 [facility] Comment on above: Order Comment: Speci men Type: BLOOD SPECIMEN Ordering Facility: [facility] Address: [address] [place] [address] Performed By: #### C ONABO #### [facility] CLIA [id number] [address] [place] [address] [place] Calcium [Mass/Vol] 9.1 mg/dL Normal 8.5-10.2 [facility] Comment on above: Order Comment: Speci men Type: BLOOD SPECIMEN Ordering Facility: [facility] Address: [address] [place] [address] Performed By: #### C ONABO #### [facility] CLIA [id number] [address] [place] [address] [place] Chloride [Moles/Vol] 104 mmol/L Normal 97-105 [facility] Comment on above: Order Comment: Speci men Type: BLOOD SPECIMEN Ordering Facility: [facility] Address: [address] [place] [address] Performed By: #### C ONABO #### [facility] CLIA [id number] [address] [place] [address] [place] CO2 [Moles/Vol] 20 mmol/L Low 22-30 [facility] Comment on above: Order Comment: Speci men Type: BLOOD SPECIMEN Ordering Facility: [facility] Address: [address] [place] [address] Performed By: #### C ONABO #### [facility] CLIA [id number] [address] [place] [address] [place] Creatinine [Mass/Vol] 0.73 mg/dL Normal 0.73-1.22 [facility] Comment on above: Order Comment: Speci men Type: BLOOD SPECIMEN Ordering Facility: [facility] Address: [address] [place] [address] Performed By: #### C ONABO #### [facility] CLIA [id number] [address] [place] [address] [place] Creatinine and Glomerular filtration rate.predicted panel (S/P/Bld) 115 mL/min/1.73m??? Normal >=60 [facility] Comment on above: Order Comment: Speci men Type: BLOOD SPECIMEN Ordering Facility: [facility] Address: [address] [place] [address] Result Comment: Katie mated Glomerular Filtration Rate [...] ONABO #### [facility] CLIA [id number] [address] [place] [address] [place] Glucose [Mass/Vol] 124 mg/dL High 74-99 [facility] Comment on above: Order Comment: Vikash vasquez Type: BLOOD SPECIMEN Ordering Facility: [facility] Address: [address] [place] [address] Result Comment: The [place] [employer] (ADA) [...] ONABO #### [facility] [place] [id number] [address] [place] [address] [place] Potassium [Moles/Vol] 4.2 mmol/L Normal 3.7-5.1 [facility] Comment on above: Order Comment: Vikash vasquez Type: BLOOD SPECIMEN Ordering Facility: [facility] Address: [address] [place] [address] Performed By: #### C ONABO #### [facility] CLIA [id number] [address] [place] [address] [place] Protein [Mass/Vol] 6.8 g/dL Normal 6.3-8.0 [facility] Comment on above: Order Comment: Vikash vasquez Type: BLOOD SPECIMEN Ordering Facility: [facility] Address: [address] [place] [address] Performed By: #### C ONABO #### [facility] CLIA [id number] [address] [place] [address] [place] Sodium [Moles/Vol] 136 mmol/L Normal 136-144 [facility] Comment on above: Order Comment: Speci men Type: BLOOD SPECIMEN Ordering Facility: [facility] Address: [address] [place] [address] Performed By: #### C ONABO #### [facility] CLIA [id number] [address] [place] [address] [place] Urea nitrogen [Mass/Vol] 9 mg/dL Normal 9-24 [facility] Comment on above: Order Comment: Speci men Type: BLOOD SPECIMEN Ordering Facility: [facility] Address: [address] [place] [address] Performed By: #### C ONABO #### [facility] CLIA [id number] [address] [place] [address] [place] ECG COMPLETEon 09-16-2023 ECG COMPLETE Ventricular Rate : 9 6 BPM Atrial Rate : 96 BPM P-R Interval : 136 ms QRS Duration : 94 ms Q-T Interval : 362 ms QTC Calculation(Bazett) : 457 ms Calculated P [place] : 30 degrees Calculated R [place] : 19 degrees Calculated T [place] : 18 degrees NORMAL SINUS RHYTHM NORMAL ECG Confirmed by MD SHILOH, PhD, MATTHEW ([id number]) on 09/25/2023 1:38:47 PM NAME : PATRICK KOROMA PID : [id number] : 1980 Gender : Male Race : ORD : [id number] Procedure Date : Sep 16 2023 12:20:58 Edit Date : Sep 25 2023 13:38:51 Diagnosis: NORMAL SINUS RHYTHM NORMAL ECG Confirmed by MD SHILOH, PhD, MATTHEW ([id number]) on 09/25/2023 1:38:47 PM Test Reason : Location : 119 : A17 A17 Overread By : MD SHILOH, PhD,MATTHEW Edited By : MD SHILOH, PhD,MATTHEW Referred By : TRINIDAD RICHARDSON Acquired by : ESAU MCGARRY [facility] HISTORY PHYSICALon HISTORY PHYSICAL HNO ID: [id number] Author: GILLES GRAHAM PA-C Service: ? Author Type: Physician Beverage Specialist Type: H&P Filed: 09/16/2023 12:27 Note Text: [...] EKG per surgical service REASON FOR VISIT: aPtrick Koroma is a 43 year old male [...] requiring medication, no history of angina, CHF, CT, cardiac surgery or stents. Denies rest pain, [...] 1.00 Year (more content not included)... Normal [facility] PT panel Coag (PPP)on 2023 INR Coag (PPP) [Relative time] 0.9 {INR} Normal 0.9-1.3 [facility] Comment on above: Order Comment: Vikash vasquez Type: BLOOD SPECIMEN Ordering Facility: [facility] Address: [address] [place] [address] Result Comment: Bisi min K Antagonist (VKA) [...] to 3.5 (target INR of 3). Nyla STATON, et al. Chest 2012, 141:7S-47S Sharla RA, et al. [facility] 2017, 70: 252-289 Performed By: #### C ONABO #### [facility] [id number] [address] [place], [place] [address] [address] [place] PT Coag (PPP) [Time] 10.1 s Normal 9.7-13.0 [facility] Comment on above: Order Comment: Vikash vasquez Type: BLOOD SPECIMEN Ordering Facility: [facility] Address: [address] [place] [address] Performed By: #### C ONABO #### [facility] CLIA [id number] [address] [place] [address] [place] TYPE AND SCREEN,30 DAYon ABO B Normal [facility] Comment on above: Order Comment: Speci men Type: BLOOD SPECIMEN Ordering Facility: [facility] Address: [address] [place] [address] Performed By: #### T SCR30 #### [facility] CLIA [id number] [address] [place] [address] OF [place] HISTORICAL AB SCR STATUS Negative Normal [facility] Comment on above: Order Comment: Speci men Type: BLOOD SPECIMEN Ordering Facility: [facility] Address: [address] [place] [address] Performed By: #### T SCR30 #### [facility] CLIA [id number] [address] [place] [address] [place] Rh Nom (Bld) Positive Normal [facility] Comment on above: Order Comment: Speci men Type: BLOOD SPECIMEN Ordering Facility: [facility] Address: [address] [place] [address] Performed By: #### T SCR30 #### [facility] CLIA [id number] [address] [place] [address] [place] aPTT PPPon 09-16-2023 aPTT Coag (PPP) [Time] 29.1 s Normal 23.0-32.4 [facility] Comment on above: Order Comment: Speci men Type: BLOOD SPECIMEN Ordering Facility: [facility] Address: [address] [place] [address] Performed By: #### C ONABO #### [facility] CLIA [id number] [address] [place] [address] [place] CNOVon 08-06-2023 CNOV Office Visit (NPRC21 ) PATRICK KOROMA ([id number]) 1980 M Date Time Provider Department 08/06/23 9:30 AM VICKI MERAZ NPRC21 During your visit today, we recorded the following information about you: Pulse Blood pressure Weight Height 107/minute 153/101 158.8 kg 1.88 m Vicki Meraz APRN.BERT [facility] 08/06/2023 10:16 AM Signed In-Person Visit Present: patient [facility] Neurological [facility] August 06, 2023 Patrick Koroma is a 43 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 He was referred by Suresh Griffiths CNP (General Surgery) [address] [address]. This consultation was shared with the referral source via the [facility] electronic medical record. The patient understanding of [...] activity was identified. 08/06/2023 by Vicki Meraz APRN.PUBLIC RELATIONS ANALYST, DNP Functional Limitations: The patient has been [...] of it Post traumatic seizure disorder (HCC) 2004 Subdural hematoma (HCC) (more content not included)... Normal [facility] CNOVon 07-07-2023 CNOV Office Visit (GENN ) PATRICK KOROMA ([id number]) 1980 M Date Time Provider Department 07/07/23 9:00 AM TRINIDAD RICHARDSONTaya During your visit today, we recorded the following information about you: Temperature Pulse Blood pressure Weight 99 degrees 106/minute 127/86 163 kg Height 1.88 m Rica Cantor Saranya 07/07/2023 8:51 AM Signed What is the reason for your visit today? consult Who is your referring physician? Jeffery Dominguez Are you having poor oral intake? NO Have you had unintentional weight loss of 15 lbs/7 Kg in the last 3-6 months? NO Bowels: regular Wound: clean AND dry Temperature: No Drains: No Viviana Teresa MD 07/07/2023 9:35 AM Signed [facility] - HISTORY AND PHYSICAL Chief Complaint: pain to the left of the hernia repair HPI: Patrick Cesar Koroma is a 43 year old male with PMH post traumatic seizure disorder, s/p appendectomy and multiple hernia repair who presents with pain lateral to the hernia repair site On 11/22/21 he had a robotic assisted repair of recurrent ventral hernia at [place] with Dr Aaron Duque with removal of [...] is warm (more content not included)... Normal [facility] .Auto Diffon 06-28-2023 Basophil, Absolute 0.0 10 3/mcL Normal 0.0-0.2 On license of [facility] ([place]) Comment on above: Performed By: #### C CORNELIA GARIBAY ADIFF, MDW, LIP, ANEU, GFR #### [address] [address] Basophils/100 WBC (Bld) 0.2 % Normal 0.0-2.5 [facility] ([place]) Comment on above: Performed By: #### C CORNELIA GARIBAY ADIFF, MDW, LIP, ANEU, GFR #### [id number] [place], [place] [address] Eosinophil, Absolute 0.2 10 3/mcL Normal 0.0-0.4 [facility] ([place]) Comment on above: Performed By: #### C BC, CMP, ADIFF, MDW, LIP, ANEU, GFR #### [address] [address] Eosinophils/100 WBC (Bld) 2.4 % Normal 0.0-7.0 [facility] ([place]) Comment on above: Performed By: #### C BC, CMP, ADIFF, MDW, LIP, ANEU, GFR #### [address] [address] Lymphocyte, Absolute 2.8 10 3/mcL Normal 0.8-3.9 [facility] ([place]) Comment on above: Performed By: #### C BC, CMP, ADIFF, MDW, LIP, ANEU, GFR #### [address] [address] Lymphocytes/100 WBC (Bld) 32.1 % Normal 10.0-50.0 [facility] ([place]) Comment on above: Performed By: #### C BC, CMP, ADIFF, MDW, LIP, ANEU, GFR #### [address] [address] Monocyte, Absolute 0.6 10 3/mcL Normal 0.2-1.0 On license of [facility] ([place]) Comment on above: Performed By: #### C BC, CMP, ADIFF, MDW, LIP, ANEU, GFR #### [address] [address] Monocytes/100 WBC (Bld) 6.7 % Normal 1.7-13.0 [facility] ([place]) Comment on above: Performed By: #### C BC, CMP, ADIFF, MDW, LIP, ANEU, GFR #### [address] [address] Neutrophils/100 WBC (Bld) 58.6 % Normal 37.0-80.0 [facility] ([place]) Comment on above: Performed By: #### C BC, CMP, ADIFF, MDW, LIP, ANEU, GFR #### [address] [address] .GFRon 06-28-2023 GFR 110 ml/min/1.73sqm Normal [facility] ([place]) Comment on above: Result Comment: GFR Population [...] CORNELIA, KLARISSA, ANURAG, LIP, ANEU, GFR #### [address] [address] GFR Non- 91 ml/min/1.73sqm Normal [facility] ([place]) Comment on above: Result Comment: GFR Population [...] CORNELIA, KLARISSA, ANURAG, LIP, ANEU, GFR #### [address] [address] .MDWon 06-28-2023 Monocyte Distribution Width 20.24 High 0.00-20.00 [facility] ([place]) Comment on above: Result Comment: For adults in ED, MDW>20.0 may be associated with a higher risk of sepsis during the first 12hrs of hospital admission Performed By: #### C LANI, CORNELIA, ANURAG CYR, LIP, ANEU, GFR #### [address] [address] .NEUABSon 06-28-2023 Neutrophil, Absolute 5.2 10 3/mcL Normal 2.9-6.2 [facility] ([place]) Comment on above: Performed By: #### C LANI, CORNELIA, ANURAG CYR, LIP, ANEU, GFR #### [address] [address] .Urinalysis Microscopic (AO) on 06-28-2023 UA Amorphus 2+ /hpf Normal [facility] ([place]) Comment on above: Performed By: #### C LANI, CORNELIA, KLARISSA, ANURAG, LIP, ANEU, GFR #### [address] [address] UA Mucous Trace Normal [facility] ([place]) Comment on above: Performed By: #### C LANI, CORNELIA, ANURAG CYR, LIP, ANEU, GFR #### [address] [address] UA RBC None Seen Normal None Seen [facility] ([place]) Comment on above: Performed By: #### C LANI, CORNELIA, ANURAG CYR, LIP, ANEU, GFR #### [address] [address] UA Squam Epithelial None Seen Normal None Seen [facility] ([place]) Comment on above: Performed By: #### C LANI, CORNELIA, ANURAG CYR, LIP, ANEU, GFR #### [address] [address] UA WBC None Seen Normal None Seen [facility] ([place]) Comment on above: Performed By: #### C LANI, CORNELIA, ANURAG CYR, LIP, ANEU, GFR #### [address] [address] CBCon 06-28-2023 Erythrocyte distribution width (RBC) [Ratio] 13.5 % Normal 11.5-14.5 [facility] ([place]) Comment on above: Performed By: #### C BC, CMP, ADIFF, MDW, LIP, ANEU, GFR #### [address] [address] Hematocrit (Bld) [Volume fraction] 44.3 % Normal 42.0-52.0 [facility] ([place]) Comment on above: Performed By: #### C BC, CMP, ADIFF, MDW, LIP, ANEU, GFR #### [address] [address] Hgb 15.4 G/dL Normal 14.0-18.0 [facility] ([place]) Comment on above: Performed By: #### C BC, CMP, ADIFF, MDW, LIP, ANEU, GFR #### [address] [address] MCH (RBC) [Entitic mass] 31.5 pg High 27.0-31.2 [facility] ([place]) Comment on above: Performed By: #### C BC, CMP, ADIFF, MDW, LIP, ANEU, GFR #### [address] [address] MCHC 34.8 G/dL Normal 31.8-35.4 [facility] ([place]) Comment on above: Performed By: #### C BC, CMP, ADIFF, MDW, LIP, ANEU, GFR #### [address] [address] MCV (RBC) [Entitic vol] 90.6 fL Normal 80.0-94.0 [facility] ([place]) Comment on above: Performed By: #### C BC, CMP, ADIFF, MDW, LIP, ANEU, GFR #### [address] [address] Platelet 294 10 3/mcL Normal 130-400 [facility] ([place]) Comment on above: Performed By: #### C BC, CMP, ADIFF, MDW, LIP, ANEU, GFR #### [address] [address] Platelet mean volume (Bld) [Entitic vol] 7.2 fL Low 7.4-10.4 [facility] ([place]) Comment on above: Performed By: #### C BC, CMP, ADJAN, MDW, LIP, ANEU, GFR #### [address] [address] RBC 4.89 10 6/mcL Normal 4.04-6.13 [facility] ([place]) Comment on above: Performed By: #### C BC, CMP, ADIFF, MDW, LIP, ANEU, GFR #### [address] [address] WBC 8.8 10 3/mcL Normal 4.6-10.8 [facility] ([place]) Comment on above: Performed By: #### C BC, CMP, ADIFF, MDW, LIP, ANEU, GFR #### [address] [address] CMPon 06-28-2023 Albumin Level 3.3 G/dL Low 3.5-5.0 [facility] ([place]) Comment on above: Performed By: #### C BC, CMP, KLARISSA, MDW, LIP, ANEU, GFR #### [address] [address] Albumin/Globulin [Mass ratio] 0.9 {ratio} Low 1.1-2.5 [facility] ([place]) Comment on above: Performed By: #### C BC, CMP, ADIFF, MDW, LIP, ANEU, GFR #### [address] [address] ALP [Catalytic activity/Vol] 46 U/L Normal 40-135 [facility] ([place]) Comment on above: Performed By: #### C BC, CMP, ADIFF, MDW, LIP, ANEU, GFR #### [address] [address] ALT [Catalytic activity/Vol] 31 U/L Normal 16-63 [facility] ([place]) Comment on above: Performed By: #### C BC, CMP, ADIFF, MDW, LIP, ANEU, GFR #### [address] [address] AST [Catalytic activity/Vol] 16 U/L Normal 10-40 [facility] ([place]) Comment on above: Performed By: #### C BC, CORNELIA, KLARISSA, W, LIP, ANEU, GFR #### [address] [address] Bili Total 0.3 mg/dL Normal 0.2-1.0 [facility] ([place]) Comment on above: Result Comment: Use of this assay is not recommended for patients undergoing treatment with eltrombopag due to the potential for falsely elevated results. Performed By: #### C LANI, CORNELIA, ANURAG CYR, LIP, ANEU, GFR #### [address] [address] BUN/Creatinine Ratio 13 ratio Normal 7-27 On license of [facility] ([place]) Comment on above: Performed By: #### C BC, CORNELIA, ANURAG CYR, LIP, ANEU, GFR #### [address] [address] Calcium [Mass/Vol] 9.1 mg/dL Normal 8.4-10.2 [facility] ([place]) Comment on above: Performed By: #### C LANI, CORNELIA, KLARISSA, ANURAG, LIP, ANEU, GFR #### [address] [address] Chloride [Moles/Vol] 103 mmol/L Normal 98-107 On license of [facility] ([place]) Comment on above: Performed By: #### C BC, CORNELIA, KLARISSA, W, LIP, ANEU, GFR #### [address] [address] CO2 [Moles/Vol] 30 mmol/L High 22-29 [facility] ([place]) Comment on above: Performed By: #### C BC, CORNELIA, KLARISSA, W, LIP, ANEU, GFR #### [address] [address] Creatinine [Mass/Vol] 0.91 mg/dL Normal 0.70-1.30 [facility] ([place]) Comment on above: Performed By: #### C BC, CMP, ADIFF, MDW, LIP, ANEU, GFR #### [address] [address] Electrolyte Balance 6.0 mEq/L Normal 4.0-15.0 [facility] ([place]) Comment on above: Performed By: #### C BC, CMP, ADIFF, MDW, LIP, ANEU, GFR #### [address] [address] Globulin 3.5 G/dL Normal [facility] ([place]) Comment on above: Performed By: #### C BC, CMP, ADIFF, MDW, LIP, ANEU, GFR #### [address] [address] Glucose [Mass/Vol] 137 mg/dL High 70-105 [facility] ([place]) Comment on above: Performed By: #### C BC, CMP, ADIFF, MDW, LIP, ANEU, GFR #### [address] [address] Potassium [Moles/Vol] 3.8 mmol/L Normal 3.5-5.1 [facility] ([place]) Comment on above: Performed By: #### C BC, CMP, ADIFF, MDW, LIP, ANEU, GFR #### [address] [address] Sodium [Moles/Vol] 139 mmol/L Normal 136-145 [facility] ([place]) Comment on above: Performed By: #### C BC, CMP, ADIFF, MDW, LIP, ANEU, GFR #### [address] [address] Total Protein 6.8 G/dL Normal 6.4-8.2 [facility] ([place]) Comment on above: Performed By: #### C BC, CMP, ADIFF, MDW, LIP, ANEU, GFR #### [address] [address] Urea nitrogen [Mass/Vol] 12 mg/dL Normal 7-18 [facility] ([place]) Comment on above: Performed By: #### C BC, CMP, KLARISSA, W, LIP, ANEU, GFR #### [facility] [place] [address] [place], [place] [address] CT ABD/PELVIS W/ IV CONTRAST ONLYon 06-28-2023 [...] Provider: YOUNG Nelson [facility] ([place]) LABORATORYOrdered By: Becka Artis on 06-28-2023 Appearance [...] Lvl 1.4 mmol/L Normal 0.4-2.0 [facility] ([place]) Comment on above: Performed By: #### L AC #### Brett [address] [place], [place] [address] LIPon 06-28-2023 Lipase Level 28 U/L Normal 16-77 [facility] ([place]) Comment on above: Performed By: #### C BC, CMP, ADJAN, MDW, LIP, ANEU, GFR #### [address] [address] No Panel Informationon 06-28 Microscopic examination of blood, culture Culture has been received in lab and is no growth to date. Routine cultures are held for 5 days. [facility] UAon 06-28-2023 Color (U) Yellow Normal [facility] ([place]) Comment on above: Performed By: #### C LANI, CORNELIA, ANURAG CYR, LIP, ANEU, GFR #### [address] [address] Glucose (U) [Mass/Vol] Negative Normal Negative [facility] ([place]) Comment on above: Performed By: #### C LANI, CORNELIA, ANURAG CYR, LIP, ANEU, GFR #### [address] [address] Ketones Ql (U) Negative Normal Negative [facility] ([place]) Comment on above: Performed By: #### C LANI, CORNELIA, ANURAG CYR, LIP, ANEU, GFR #### [address] [address] UA Appear Slightly Cloudy Abnormal Clear [facility] ([place]) Comment on above: Performed By: #### C LANI, CORNELIA, ANURAG CYR, LIP, ANEU, GFR #### [address] [address] UA Blood Negative Normal Negative [facility] ([place]) Comment on above: Performed By: #### C LANI, CORNELIA, ANURAG CYR, LIP, ANEU, GFR #### [address] [address] UA Leuk Est Negative Normal Negative [facility] ([place]) Comment on above: Performed By: #### C LANI, CORNELIA, ANURAG CYR, LIP, ANEU, GFR #### [address] [address] UA Nitrite Negative Normal Negative [facility] ([place]) Comment on above: Performed By: #### C BC, CORNELIA, ANURAG CYR, LIP, ANEU, GFR #### [address] [address] UA pH 7.0 Normal 5.0 - 8.0 [facility] ([place]) Comment on above: Performed By: #### C BC, CMP, KLARISSA, W, LIP, ANEU, GFR #### [address] [address] UA Protein Negative Normal Negative [facility] ([place]) Comment on above: Performed By: #### C BC, CORNELIA, KLARISSA, ANURAG, LIP, ANEU, GFR #### [address] [address] UA Spec Grav 1.020 Normal 1.015-1.025 [facility] ([place]) Comment on above: Performed By: #### C LANI, CORNELIA, KLARISSA, ANURAG, LIP, ANEU, GFR #### [address] [address] [address] UA Specimen Type Clean Catch Normal [facility] ([place]) Comment on above: Performed By: #### C LANI, CORNELIA, KLARISSA, W, LIP, ANEU, GFR #### [address] [address] UA Urobilinogen 0.2 E.U./dL Normal 0.2-1.0 [facility] ([place]) Comment on above: Performed By: #### C LANI, CORNELIA, KLARISSA, ANURAG, LIP, ANEU, GFR #### [place] [id number] Urobilinogen (U) [Mass/Vol] Negative Normal Negative [facility] ([place]) Comment on above: Performed By: #### C LANI, CORNELIA, KLARISSA, ANURAG, LIP, ANEU, GFR #### [address] [address] Cheikh 06-25-2023 [employer]ERT[employer] Telephone ([employer] PATRICK KOROMA ([id number]) 1980 M Date Time Provider Department 06/25/23 DARIN MILLER During your visit today, we recorded the following information about you: Darin Miller OCCA 06/25/2023 12:52 PM Signed Reviewed chart for clinic prep. Patient has recent CT in [facility]. Obtained operative reports from [facility], sent for scanning. CHUY Coyne-PMAR Allergies As [...] Status:Closed by DARIN MILLER on 06/25/23 Normal [facility] .Auto Diffon 06-08-2023 Basophil, Absolute 0.1 10 3/mcL Normal 0.0-0.2 On license of [facility] ([place]) Comment on above: Performed By: #### C LANI, CMP, ADIFF, MDW, LIP, ANEU, GFR #### [address] [address] Basophils/100 WBC (Bld) 1.2 % Normal 0.0-2.5 [facility] ([place]) Comment on above: Performed By: #### C BC, CMP, ADIFF, MDW, LIP, ANEU, GFR #### [address] [address] Eosinophil, Absolute 0.2 10 3/mcL Normal 0.0-0.4 [facility] ([place]) Comment on above: Performed By: #### C BC, CMP, ADIFF, MDW, LIP, ANEU, GFR #### [address] [address] Eosinophils/100 WBC (Bld) 2.1 % Normal 0.0-7.0 [facility] ([place]) Comment on above: Performed By: #### C BC, CMP, ADIFF, MDW, LIP, ANEU, GFR #### [address] [address] Lymphocyte, Absolute 2.8 10 3/mcL Normal 0.8-3.9 [facility] ([place]) Comment on above: Performed By: #### C BC, CMP, ADIFF, MDW, LIP, ANEU, GFR #### [address] [address] Lymphocytes/100 WBC (Bld) 26.1 % Normal 10.0-50.0 [facility] ([place]) Comment on above: Performed By: #### C BC, CMP, ADIFF, MDW, LIP, ANEU, GFR #### [address] [address] Monocyte, Absolute 0.6 10 3/mcL Normal 0.2-1.0 On license of [facility] ([place]) Comment on above: Performed By: #### C BC, CMP, ADIFF, MDW, LIP, ANEU, GFR #### [address] [address] Monocytes/100 WBC (Bld) 5.8 % Normal 1.7-13.0 [facility] ([place]) Comment on above: Performed By: #### C LANI, KLARISSA LOCKE MDW, LIP, ANEU, GFR #### [address] [address] Neutrophils/100 WBC (Bld) 64.8 % Normal 37.0-80.0 [facility] ([place]) Comment on above: Performed By: #### C LANI, KLARISSA LOCKE MDW, LIP, ANEU, GFR #### [address] [address] .GFRon 06-08-2023 GFR 124 ml/min/1.73sqm Normal [facility] ([place]) Comment on above: Result Comment: GFR Population [...] CORNELIA, ANURAG CYR, LIP, ANEU, GFR #### [address] [address] GFR Non- 102 ml/min/1.73sqm Normal [facility] ([place]) Comment on above: Result Comment: GFR Population [...] CMP, ADIFF, MDW, LIP, ANEU, GFR #### [address] [address] .MDWon 06-08-2023 Monocyte Distribution Width 18.49 Normal 0.00-20.00 [facility] ([place]) Comment on above: Result Comment: For ED adult patients suspected of sepsis, MDW<=20.0 does not rule out sepsis or risk of sepsis Performed By: #### C BC, CMP, ADIFF, MDW, LIP, ANEU, GFR #### [address] [address] .NEUABSon 06-08-2023 Neutrophil, Absolute 6.9 10 3/mcL High 2.9-6.2 [facility] ([place]) Comment on above: Performed By: #### C BC, CMP, ADIFF, MDW, LIP, ANEU, GFR #### [address] [address] BMPon 06-08-2023 BUN/Creatinine Ratio 15 ratio Normal 7-27 On license of [facility] ([place]) Comment on above: Performed By: #### C BC, CMP, ADIFF, MDW, LIP, ANEU, GFR #### [address] [address] Calcium [Mass/Vol] 8.9 mg/dL Normal 8.4-10.2 [facility] ([place]) Comment on above: Performed By: #### C BC, CMP, ADIFF, MDW, LIP, ANEU, GFR #### [address] [address] Chloride [Moles/Vol] 104 mmol/L Normal 98-107 On license of [facility] ([place]) Comment on above: Performed By: #### C BC, CMP, ADIFF, MDW, LIP, ANEU, GFR #### [address] [address] CO2 [Moles/Vol] 26 mmol/L Normal 22-29 [facility] ([place]) Comment on above: Performed By: #### C BC, CMP, ADJAN, MDW, LIP, ANEU, GFR #### [address] [address] Creatinine [Mass/Vol] 0.82 mg/dL Normal 0.70-1.30 [facility] ([place]) Comment on above: Performed By: #### C BC, CMP, ADIFF, MDW, LIP, ANEU, GFR #### [address] [address] Electrolyte Balance 10.0 mEq/L Normal 4.0-15.0 [facility] ([place]) Comment on above: Performed By: #### C BC, CMP, ADIFF, MDW, LIP, ANEU, GFR #### [address] [address] Glucose [Mass/Vol] 110 mg/dL High 70-105 [facility] ([place]) Comment on above: Performed By: #### C BC, CMP, ADJAN, MDW, LIP, ANEU, GFR #### [address] [address] Potassium [Moles/Vol] 4.2 mmol/L Normal 3.5-5.1 [facility] ([place]) Comment on above: Performed By: #### C BC, CMP, ADJAN, MDW, LIP, ANEU, GFR #### [address] [address] Sodium [Moles/Vol] 140 mmol/L Normal 136-145 [facility] ([place]) Comment on above: Performed By: #### C BC, CMP, KLARISSA, MDW, LIP, ANEU, GFR #### [address] [address] Urea nitrogen [Mass/Vol] 12 mg/dL Normal 7-18 [facility] ([place]) Comment on above: Performed By: #### C BC, CMP, ADIFF, MDW, LIP, ANEU, GFR #### [address] [address] CBCon 06-08-2023 Erythrocyte distribution width (RBC) [Ratio] 13.6 % Normal 11.5-14.5 [facility] ([place]) Comment on above: Performed By: #### C BC, CMP, ADIFF, MDW, LIP, ANEU, GFR #### [address] [address] Hematocrit (Bld) [Volume fraction] 43.4 % Normal 42.0-52.0 [facility] ([place]) Comment on above: Performed By: #### C BC, CMP, ADIFF, MDW, LIP, ANEU, GFR #### [address] [address] Hgb 14.9 G/dL Normal 14.0-18.0 [facility] ([place]) Comment on above: Performed By: #### C BC, CMP, ADIFF, MDW, LIP, ANEU, GFR #### [address] [address] MCH (RBC) [Entitic mass] 31.1 pg Normal 27.0-31.2 [facility] ([place]) Comment on above: Performed By: #### C BC, CMP, ADIFF, MDW, LIP, ANEU, GFR #### [address] [address] MCHC 34.4 G/dL Normal 31.8-35.4 [facility] ([place]) Comment on above: Performed By: #### C BC, CMP, ADIFF, MDW, LIP, ANEU, GFR #### [address] [address] MCV (RBC) [Entitic vol] 90.5 fL Normal 80.0-94.0 [facility] ([place]) Comment on above: Performed By: #### C BC, CMP, ADIFF, MDW, LIP, ANEU, GFR #### [address] [address] Platelet 283 10 3/mcL Normal 130-400 [facility] ([place]) Comment on above: Performed By: #### C BC, CMP, KLARISSA, MDW, LIP, ANEU, GFR #### [address] [address] Platelet mean volume (Bld) [Entitic vol] 8.0 fL Normal 7.4-10.4 [facility] ([place]) Comment on above: Performed By: #### C BC, CMP, KLARISSA, MDW, LIP, ANEU, GFR #### [address] [address] RBC 4.80 10 6/mcL Normal 4.04-6.13 [facility] ([place]) Comment on above: Performed By: #### C BC, CMP, KLARISSA, MDW, LIP, ANEU, GFR #### [place] [address] WBC 10.6 10 3/mcL Normal 4.6-10.8 [facility] ([place]) Comment on above: Performed By: #### C BC, CMP, KLARISSA, MDW, LIP, ANEU, GFR #### [address] [address] LABORATORYOrdered By: SYSTEM SYSTEM on 06-08-2023 Basophil, [...] 111 ml/min/1.73sqm Normal [facility] ([place]) Comment on above: Result Comment: GFR Population [...] CORNELIA, ANURAG CYR, LIP, ANEU, GFR #### [address] [address] GFR Non- 92 ml/min/1.73sqm Normal [facility] ([place]) Comment on above: Result Comment: GFR Population [...] CORNELIA, ANURAG CYR, LIP, ANEU, GFR #### [address] [address] BMPon 05-17-2023 BUN/Creatinine Ratio 14 ratio Normal 7-27 On license of [facility] ([place]) Comment on above: Performed By: #### C BC, CORNELIA, ANURAG CYR, LIP, ANEU, GFR #### [address] [address] Calcium [Mass/Vol] 9.5 mg/dL Normal 8.4-10.2 [facility] ([place]) Comment on above: Performed By: #### C BC, CMP, ADJAN, MDW, LIP, ANEU, GFR #### [address] [address] Chloride [Moles/Vol] 103 mmol/L Normal 98-107 On license of [facility] ([place]) Comment on above: Performed By: #### C BC, CMP, ADIFF, MDW, LIP, ANEU, GFR #### [address] [address] CO2 [Moles/Vol] 24 mmol/L Normal 22-29 [facility] ([place]) Comment on above: Performed By: #### C BC, CMP, ADIFF, MDW, LIP, ANEU, GFR #### [address] [address] Creatinine [Mass/Vol] 0.90 mg/dL Normal 0.70-1.30 [facility] ([place]) Comment on above: Performed By: #### C BC, CMP, ADJAN, MDW, LIP, ANEU, GFR #### [address] [address] Electrolyte Balance 15.0 mEq/L Normal 4.0-15.0 [facility] ([place]) Comment on above: Performed By: #### C BC, CMP, ADIFF, MDW, LIP, ANEU, GFR #### [address] [address] Glucose [Mass/Vol] 98 mg/dL Normal 70-105 [facility] ([place]) Comment on above: Performed By: #### C BC, CMP, ADIFF, MDW, LIP, ANEU, GFR #### [address] [address] Potassium [Moles/Vol] 4.6 mmol/L Normal 3.5-5.1 [facility] ([place]) Comment on above: Performed By: #### C BC, CMP, ADIFF, MDW, LIP, ANEU, GFR #### [facility] [address] [place], [place] [address] Sodium [Moles/Vol] 142 mmol/L Normal 136-145 [facility] ([place]) Comment on above: Performed By: #### C LANI, CORNELIA, ANURAG CYR, LIP, ANEU, GFR #### [facility] [address] [place], [place] [address] Urea nitrogen [Mass/Vol] 13 mg/dL Normal 7-18 [facility] ([place]) Comment on above: Performed By: #### C LANI, CORNELIA, ANURAG CYR, LIP, ANEU, GFR #### [facility] [address] [place], [place] [address] CT ABD/PELVIS W/ IV CONTRAST ONLYon 05-17-2023 [...] Provider: TOI Nelson [facility] ([place]) .Auto Diffon 05-16-2023 Basophil, Absolute 0.1 10 3/mcL Normal 0.0-0.2 [facility]) Comment on above: Performed By: #### C BC, CMP, ADIFF, MDW, LIP, ANEU, GFR #### [address] [address] Basophils/100 WBC (Bld) 1.1 % Normal 0.0-2.5 [facility] ([place]) Comment on above: Performed By: #### C BC, CMP, ADIFF, MDW, LIP, ANEU, GFR #### [address] [address] Eosinophil, Absolute 0.3 10 3/mcL Normal 0.0-0.4 [facility] ([place]) Comment on above: Performed By: #### C BC, CMP, ADIFF, MDW, LIP, ANEU, GFR #### [address] [address] Eosinophils/100 WBC (Bld) 1.9 % Normal 0.0-7.0 [facility] ([place]) Comment on above: Performed By: #### C BC, CMP, ADIFF, MDW, LIP, ANEU, GFR #### [address] [address] Lymphocyte, Absolute 3.4 10 3/mcL Normal 0.8-3.9 [facility] ([place]) Comment on above: Performed By: #### C BC, CMP, ADIFF, MDW, LIP, ANEU, GFR #### [address] [address] Lymphocytes/100 WBC (Bld) 25.6 % Normal 10.0-50.0 [facility] ([place]) Comment on above: Performed By: #### C BC, CMP, KLARISSA, W, LIP, ANEU, GFR #### [address] [address] Monocyte, Absolute 0.8 10 3/mcL Normal 0.2-1.0 On license of [facility] ([place]) Comment on above: Performed By: #### C BC, CMP, KLARISSA, W, LIP, ANEU, GFR #### [address] [address] Monocytes/100 WBC (Bld) 6.0 % Normal 1.7-13.0 [facility] ([place]) Comment on above: Performed By: #### C BC, CMP, KLARISSA, W, LIP, ANEU, GFR #### [address] [address] Neutrophils/100 WBC (Bld) 65.4 % Normal 37.0-80.0 [facility] ([place]) Comment on above: Performed By: #### C BC, CMP, KLARISSA, ANURAG, LIP, ANEU, GFR #### [address] [address] .GFRon 05-16-2023 GFR 98 ml/min/1.73sqm Normal [facility] ([place]) Comment on above: Result Comment: GFR Population [...] CMP, ADJAN, MDW, LIP, ANEU, GFR #### [address] [address] GFR Non- 81 ml/min/1.73sqm Normal [facility] ([place]) Comment on above: Result Comment: GFR Population [...] CMP, ADIFF, MDW, LIP, ANEU, GFR #### [address] [address] .MDWon 05-16-2023 Monocyte Distribution Width 17.52 Normal 0.00-20.00 [facility] ([place]) Comment on above: Result Comment: For ED adult patients suspected of sepsis, MDW<=20.0 does not rule out sepsis or risk of sepsis Performed By: #### C BC, CMP, KLARISSA, MDW, LIP, ANEU, GFR #### [address] [address] .NEUABSon 05-16-2023 Neutrophil, Absolute 8.7 10 3/mcL High 2.9-6.2 [facility] ([place]) Comment on above: Performed By: #### C BC, CMP, ADJAN, MDW, LIP, ANEU, GFR #### [address] [address] CBCon 05-16-2023 Erythrocyte distribution width (RBC) [Ratio] 13.4 % Normal 11.5-14.5 [facility] ([place]) Comment on above: Performed By: #### C BC, CMP, ADIFF, MDW, LIP, ANEU, GFR #### [address] [address] Hematocrit (Bld) [Volume fraction] 45.6 % Normal 42.0-52.0 [facility] ([place]) Comment on above: Performed By: #### C BC, CMP, ADIFF, MDW, LIP, ANEU, GFR #### [place] [address] Hgb 15.6 G/dL Normal 14.0-18.0 [facility] ([place]) Comment on above: Performed By: #### C BC, CMP, ADIFF, MDW, LIP, ANEU, GFR #### [place] [address] MCH (RBC) [Entitic mass] 30.9 pg Normal 27.0-31.2 [facility] ([place]) Comment on above: Performed By: #### C BC, CMP, ADIFF, MDW, LIP, ANEU, GFR #### [place] [address] MCHC 34.1 G/dL Normal 31.8-35.4 [facility] ([place]) Comment on above: Performed By: #### C BC, CMP, ADIFF, MDW, LIP, ANEU, GFR #### [place] [address] MCV (RBC) [Entitic vol] 90.6 fL Normal 80.0-94.0 [facility] ([place]) Comment on above: Performed By: #### C BC, CMP, ADIFF, MDW, LIP, ANEU, GFR #### [place] [address]17 Platelet 303 10 3/mcL Normal 130-400 [facility] ([place]) Comment on above: Performed By: #### C BC, CMP, ADIFF, MDW, LIP, ANEU, GFR #### [place] [address]17 Platelet mean volume (Bld) [Entitic vol] 7.3 fL Low 7.4-10.4 [facility] ([place]) Comment on above: Performed By: #### C BC, CMP, KLARISSA, W, LIP, ANEU, GFR #### [address] [address] RBC 5.04 10 6/mcL Normal 4.04-6.13 [facility] ([place]) Comment on above: Performed By: #### C BC, CMP, KLARISSA, MDW, LIP, ANEU, GFR #### [address] [address] WBC 13.3 10 3/mcL High 4.6-10.8 [facility] ([place]) Comment on above: Performed By: #### C BC, CMP, KLARISSA, MDW, LIP, ANEU, GFR #### [address] [address] CMPon 05-16-2023 Albumin Level 3.4 G/dL Low 3.5-5.0 [facility] ([place]) Comment on above: Performed By: #### C BC, CMP, KLARISSA, W, LIP, ANEU, GFR #### [address] [address] Albumin/Globulin [Mass ratio] 0.9 {ratio} Low 1.1-2.5 [facility] ([place]) Comment on above: Performed By: #### C BC, CMP, KLARISSA, MDW, LIP, ANEU, GFR #### [address] [address] ALP [Catalytic activity/Vol] 47 U/L Normal 40-135 [facility] ([place]) Comment on above: Performed By: #### C BC, CMP, KLARISSA, MDW, LIP, ANEU, GFR #### [address] [address] ALT [Catalytic activity/Vol] 23 U/L Normal 16-63 [facility] ([place]) Comment on above: Performed By: #### C BC, CMP, KLARISSA, W, LIP, ANEU, GFR #### [address] [address] AST [Catalytic activity/Vol] 21 U/L Normal 10-40 [facility] ([place]) Comment on above: Performed By: #### C BC, CMP, ADIFF, MDW, LIP, ANEU, GFR #### [address] [address] Bili Total 0.2 mg/dL Normal 0.2-1.0 [facility] ([place]) Comment on above: Result Comment: Use of this assay is not recommended for patients undergoing treatment with eltrombopag due to the potential for falsely elevated results. Performed By: #### C BC, CMP, ADIFF, MDW, LIP, ANEU, GFR #### [address] [address] BUN/Creatinine Ratio 14 ratio Normal 7-27 On license of [facility] ([place]) Comment on above: Performed By: #### C BC, CMP, ADIFF, MDW, LIP, ANEU, GFR #### [address] [address] Calcium [Mass/Vol] 9.3 mg/dL Normal 8.4-10.2 [facility] ([place]) Comment on above: Performed By: #### C BC, CMP, ADIFF, MDW, LIP, ANEU, GFR #### [address] [address] Chloride [Moles/Vol] 96 mmol/L Low 98-107 On license of [facility] ([place]) Comment on above: Performed By: #### C BC, CMP, ADIFF, MDW, LIP, ANEU, GFR #### [address] [address] CO2 [Moles/Vol] 24 mmol/L Normal 22-29 [facility] ([place]) Comment on above: Performed By: #### C BC, CMP, ADIFF, MDW, LIP, ANEU, GFR #### [address] [address] Creatinine [Mass/Vol] 1.00 mg/dL Normal 0.70-1.30 [facility] ([place]) Comment on above: Performed By: #### C BC, CMP, KLARISSA, MDW, LIP, ANEU, GFR #### [address] [address] Electrolyte Balance 6.0 mEq/L Normal 4.0-15.0 [facility] ([place]) Comment on above: Performed By: #### C BC, CMP, ADIFF, MDW, LIP, ANEU, GFR #### [address] [address] Globulin 3.8 G/dL Normal [facility] ([place]) Comment on above: Performed By: #### C BC, CMP, KLARISSA, MDW, LIP, ANEU, GFR #### [address] [address] Glucose [Mass/Vol] 121 mg/dL High 70-105 [facility] ([place]) Comment on above: Performed By: #### C BC, CMP, ADJAN, MDW, LIP, ANEU, GFR #### [address] [address] Potassium [Moles/Vol] 3.8 mmol/L Normal 3.5-5.1 [facility] ([place]) Comment on above: Performed By: #### C BC, CMP, ADIFF, MDW, LIP, ANEU, GFR #### [address] [address] Sodium [Moles/Vol] 126 mmol/L Low 136-145 [facility] ([place]) Comment on above: Performed By: #### C BC, CMP, ADIFF, MDW, LIP, ANEU, GFR #### [address] [address] Total Protein 7.2 G/dL Normal 6.4-8.2 [facility] ([place]) Comment on above: Performed By: #### C BC, CMP, ADIFF, MDW, LIP, ANEU, GFR #### [address] [address] Urea nitrogen [Mass/Vol] 14 mg/dL Normal 7-18 [facility] ([place]) Comment on above: Performed By: #### C BC, CMP, KLARISSA, MDW, LIP, ANEU, GFR #### [place] [address] [place], [place] [address] LABORATORYOrdered By: SYSTEM SYSTEM on 05-16-2023 Albumin [...] 05-16-2023 Lipase Level 20 U/L Normal 16-77 [facility] ([place]) Comment on above: Performed By: #### C BC, CMP, KLARISSA, W, LIP, ANEU, GFR #### [address] [address] UAon 05-16-2023 Color (U) Yellow Normal [facility] ([place]) Comment on above: Performed By: #### U A #### [facility] [address] [place], [place] [address] Glucose (U) [Mass/Vol] Negative Normal Negative [facility] ([place]) Comment on above: Performed By: #### U A #### [address] [address] Ketones Ql (U) Negative Normal Negative [facility] ([place]) Comment on above: Performed By: #### U A #### [address] [address] UA Appear Clear Normal Clear [facility] ([place]) Comment on above: Performed By: #### U A #### [address] [address] UA Blood Negative Normal Negative [facility] ([place]) Comment on above: Performed By: #### U A #### [address] [address] UA Leuk Est Negative Normal Negative [facility] ([place]) Comment on above: Performed By: #### U A #### [address] [address] UA Nitrite Negative Normal Negative [facility] ([place]) Comment on above: Performed By: #### U A #### [address] [address] UA pH 6.0 Normal 5.0 - 8.0 [facility] ([place]) Comment on above: Performed By: #### U A #### [address] [address] UA Protein Negative Normal Negative [facility] ([place]) Comment on above: Performed By: #### U A #### [address] [address] UA Spec Grav >=1.030 Abnormal 1.015-1.025 [facility] ([place]) Comment on above: Performed By: #### U A #### [address] [address] UA Specimen Type Clean Catch Normal [facility] ([place]) Comment on above: Performed By: #### U A #### [address] [address] UA Urobilinogen 0.2 E.U./dL Normal 0.2-1.0 [facility] ([place]) Comment on above: Performed By: #### U A #### [address] [address] Urobilinogen (U) [Mass/Vol] Negative Normal Negative [facility] ([place]) Comment on above: Performed By: #### U A #### [address] [address] .Auto Diffon 02-12-2023 Basophil, Absolute 0.1 10 3/mcL Normal 0.0-0.2 On license of [facility] ([place]) Comment on above: Performed By: #### C BC, CMP, ADIFF, MDW, LIP, ANEU, GFR #### [address] [address] Basophils/100 WBC (Bld) 1.2 % Normal 0.0-2.5 [facility] ([place]) Comment on above: Performed By: #### C BC, CMP, ADIFF, MDW, LIP, ANEU, GFR #### [address] [address] Eosinophil, Absolute 0.1 10 3/mcL Normal 0.0-0.4 [facility] ([place]) Comment on above: Performed By: #### C BC, CMP, ADIFF, MDW, LIP, ANEU, GFR #### [address] [address] Eosinophils/100 WBC (Bld) 1.4 % Normal 0.0-7.0 [facility] ([place]) Comment on above: Performed By: #### C BC, CMP, ADIFF, MDW, LIP, ANEU, GFR #### [address] [address] Lymphocyte, Absolute 3.3 10 3/mcL Normal 0.8-3.9 [facility] ([place]) Comment on above: Performed By: #### C BC, CMP, ADIFF, MDW, LIP, ANEU, GFR #### [address] [address] Lymphocytes/100 WBC (Bld) 35.7 % Normal 10.0-50.0 [facility] ([place]) Comment on above: Performed By: #### C BC, CMP, KLARISSA, MDW, LIP, ANEU, GFR #### [address] [address] Monocyte, Absolute 0.5 10 3/mcL Normal 0.2-1.0 On license of [facility] ([place]) Comment on above: Performed By: #### C BC, CMP, ADIFF, MDW, LIP, ANEU, GFR #### [address] [address] Monocytes/100 WBC (Bld) 5.1 % Normal 1.7-13.0 [facility] ([place]) Comment on above: Performed By: #### C BC, CMP, ADJAN, MDW, LIP, ANEU, GFR #### [address] [address] Neutrophils/100 WBC (Bld) 56.6 % Normal 37.0-80.0 [facility] ([place]) Comment on above: Performed By: #### C BC, CMP, KLARISSA, MDW, LIP, ANEU, GFR #### [address] [address] .GFRon 02-12-2023 GFR Non- 121 ml/min/1.73sqm Normal [facility] ([place]) Comment on above: Result Comment: GFR Population [...] CMP, ADIFF, MDW, LIP, ANEU, GFR #### [address] [address] GFR 146 ml/min/1.73sqm Normal [facility] ([place]) Comment on above: Result Comment: GFR Population [...] CMP, ADIFF, MDW, LIP, ANEU, GFR #### [address] [address] .MDWon 02-12-2023 Monocyte Distribution Width 19.74 Normal 0.00-20.00 [facility] ([place]) Comment on above: Result Comment: For ED adult patients suspected of sepsis, MDW<=20.0 does not rule out sepsis or risk of sepsis Performed By: #### C BC, CMP, ADIFF, MDW, LIP, ANEU, GFR #### [address] [address] .NEUABSon 02-12-2023 Neutrophil, Absolute 5.2 10 3/mcL Normal 2.9-6.2 [facility] ([place]) Comment on above: Performed By: #### C BC, CMP, ADIFF, MDW, LIP, ANEU, GFR #### [address] [address] CBCon 02-12-2023 Erythrocyte distribution width (RBC) [Ratio] 14.0 % Normal 11.5-14.5 [facility] ([place]) Comment on above: Order Comment: clott ed Performed By: #### C BC, CMP, ADIFF, MDW, LIP, ANEU, GFR #### [address] [address] Hematocrit (Bld) [Volume fraction] 44.7 % Normal 42.0-52.0 [facility] ([place]) Comment on above: Order Comment: clott ed Performed By: #### C BC, CMP, ADIFF, MDW, LIP, ANEU, GFR #### [address] [address] Hgb 15.5 G/dL Normal 14.0-18.0 [facility] ([place]) Comment on above: Order Comment: clott ed Performed By: #### C BC, CMP, ADIFF, MDW, LIP, ANEU, GFR #### [address] [address] MCH (RBC) [Entitic mass] 30.6 pg Normal 27.0-31.2 [facility] ([place]) Comment on above: Order Comment: clott ed Performed By: #### C BC, CMP, ADIFF, MDW, LIP, ANEU, GFR #### [address] [address] MCHC 34.6 G/dL Normal 31.8-35.4 [facility] ([place]) Comment on above: Order Comment: clott ed Performed By: #### C BC, CMP, ADIFF, MDW, LIP, ANEU, GFR #### [address] [address] MCV (RBC) [Entitic vol] 88.4 fL Normal 80.0-94.0 [facility] ([place]) Comment on above: Order Comment: clott ed Performed By: #### C BC, CMP, ADIFF, MDW, LIP, ANEU, GFR #### [address] [address] Platelet 271 10 3/mcL Normal 130-400 [facility] ([place]) Comment on above: Order Comment: clott ed Performed By: #### C BC, CMP, ADIFF, MDW, LIP, ANEU, GFR #### [address] [address] Platelet mean volume (Bld) [Entitic vol] 7.2 fL Low 7.4-10.4 [facility] ([place]) Comment on above: Order Comment: clott ed Performed By: #### C BC, CMP, ADJAN, MDW, LIP, ANEU, GFR #### [address] [address] RBC 5.06 10 6/mcL Normal 4.04-6.13 [facility] ([place]) Comment on above: Order Comment: clott ed Performed By: #### C BC, CMP, ADIFF, MDW, LIP, ANEU, GFR #### [address] [address] WBC 9.3 10 3/mcL Normal 4.6-10.8 Count includes the [facility]) Comment on above: Order Comment: clott ed Performed By: #### C BC, CMP, ADJAN, MDW, LIP, ANEU, GFR #### [address] [address] CMPon 02-12-2023 Albumin Level 3.2 G/dL Low 3.5-5.0 [facility] ([place]) Comment on above: Performed By: #### C BC, CMP, KLARISSA, MDW, LIP, ANEU, GFR #### [address] [address] Albumin/Globulin [Mass ratio] 0.8 {ratio} Low 1.1-2.5 [facility] ([place]) Comment on above: Performed By: #### C BC, CMP, ADIFF, MDW, LIP, ANEU, GFR #### [address] [address] ALP [Catalytic activity/Vol] 40 U/L Normal 40-135 [facility]) Comment on above: Performed By: #### C BC, CMP, ADIFF, MDW, LIP, ANEU, GFR #### [address] [address] ALT [Catalytic activity/Vol] 25 U/L Normal 16-63 [facility]) Comment on above: Performed By: #### C BC, CMP, ADIFF, MDW, LIP, ANEU, GFR #### [address] [address] AST [Catalytic activity/Vol] 32 U/L Normal 10-40 [facility] ([place]) Comment on above: Performed By: #### C BC, CMP, ADIFF, MDW, LIP, ANEU, GFR #### [address] [address] Bili Total 0.3 mg/dL Normal 0.2-1.0 [facility] ([place]) Comment on above: Result Comment: Use of this assay is not recommended for patients undergoing treatment with eltrombopag due to the potential for falsely elevated results. Performed By: #### C BC, CMP, ADIFF, MDW, LIP, ANEU, GFR #### [address] [address] BUN/Creatinine Ratio 13 ratio Normal 7-27 On license of [facility] ([place]) Comment on above: Performed By: #### C BC, CMP, ADIFF, MDW, LIP, ANEU, GFR #### [address] [address] Calcium [Mass/Vol] 8.2 mg/dL Low 8.4-10.2 [facility] ([place]) Comment on above: Performed By: #### C BC, CMP, ADIFF, MDW, LIP, ANEU, GFR #### [address] [address] Chloride [Moles/Vol] 102 mmol/L Normal 98-107 On license of [facility] ([place]) Comment on above: Performed By: #### C BC, CMP, ADIFF, MDW, LIP, ANEU, GFR #### [address] [address] CO2 [Moles/Vol] 26 mmol/L Normal 22-29 [facility] ([place]) Comment on above: Performed By: #### C BC, CMP, ADIFF, MDW, LIP, ANEU, GFR #### [address] [address] Creatinine [Mass/Vol] 0.71 mg/dL Normal 0.70-1.30 [facility] ([place]) Comment on above: Performed By: #### C BC, CMP, ADJAN, MDW, LIP, ANEU, GFR #### [address] [address] Electrolyte Balance 9.0 mEq/L Normal 4.0-15.0 [facility] ([place]) Comment on above: Performed By: #### C BC, CMP, ADIFF, MDW, LIP, ANEU, GFR #### [address] [address] Globulin 3.9 G/dL Normal [facility] ([place]) Comment on above: Performed By: #### C BC, CMP, ADIFF, MDW, LIP, ANEU, GFR #### [address] [address] Glucose [Mass/Vol] 118 mg/dL High 70-105 [facility] ([place]) Comment on above: Performed By: #### C BC, CMP, ADIFF, MDW, LIP, ANEU, GFR #### [address] [address] Potassium [Moles/Vol] 4.9 mmol/L Normal 3.5-5.1 [facility] ([place]) Comment on above: Performed By: #### C BC, CMP, ADIFF, MDW, LIP, ANEU, GFR #### [address] [address] Sodium [Moles/Vol] 137 mmol/L Normal 136-145 [facility] ([place]) Comment on above: Performed By: #### C BC, CMP, ADIFF, MDW, LIP, ANEU, GFR #### [address] [address] Total Protein 7.1 G/dL Normal 6.4-8.2 [facility] ([place]) Comment on above: Performed By: #### C BC, CMP, ADIFF, MDW, LIP, ANEU, GFR #### [facility] [address] [place], [place] [address] Urea nitrogen [Mass/Vol] 9 mg/dL Normal 7-18 [facility] ([place]) Comment on above: Performed By: #### C BC, CORNELIA, KLARISSA, ANURAG, LIP, ANEU, GFR #### [facility] [address] [place], [place] [address] CT ABD/PELVIS W/ IV CONTRAST ONLYon 02-12-2023 [...] 02/12/2023 8:10:54 PM Ordering Provider: WOODROW MCALLISTER [facility] ([place]) LABORATORYOrdered By: SYSTEM SYSTEM on 02-12-2023 Albumin [...] 02-12-2023 Lipase Level 39 U/L Normal 16-77 [facility] ([place]) Comment on above: Performed By: #### C LANI, CORNELIA, ANURAG CYR, LIP, ANEU, GFR #### Brett [address] [address] TROPHSon 02-12-2023 Troponin I High Sensitivity 4.0 ng/L Normal 0.0-76.2 [facility] ([place]) Comment on above: Performed By: #### C LANI, CORNELIA, ANURAG CYR, LIP, ANEU, GFR #### Brett [address] [address] UAon 02-12-2023 Color (U) Yellow Normal [facility] ([place]) Comment on above: Performed By: #### U A #### Brett [address] [place], [place] [address] Glucose (U) [Mass/Vol] Negative Normal Negative [facility] ([place]) Comment on above: Performed By: #### U A #### Brett [address] [place], [place] [address] Ketones Ql (U) Negative Normal Negative [facility] ([place]) Comment on above: Performed By: #### U A #### Brett [address] [place], [place] [address] UA Appear Clear Normal Clear [facility] ([place]) Comment on above: Performed By: #### U A #### [address] [place], [place] [address] UA Blood Negative Normal Negative [facility] ([place]) Comment on above: Performed By: #### U A #### [address] [place], [place] [address] UA Leuk Est Negative Normal Negative [facility] ([place]) Comment on above: Performed By: #### U A #### Brett [address] [place], [place] [address] UA Nitrite Negative Normal Negative [facility] ([place]) Comment on above: Performed By: #### U A #### Brett [address] [place], [place] [address] UA pH 7.0 Normal 5.0 - 8.0 [facility] ([place]) Comment on above: Performed By: #### U A #### Brettjessica [address] [place], [place] [address] UA Protein Negative Normal Negative [facility] ([place]) Comment on above: Performed By: #### U A #### Brettjessica [address] [place], [place] [address] UA Spec Grav 1.015 Normal 1.015-1.025 [facility] ([place]) Comment on above: Performed By: #### U A #### Brettjessica [address] [place], [place] [address] UA Specimen Type Clean Catch Normal [facility] ([place]) Comment on above: Performed By: #### U A #### Brett [address] [place], [place] [address] UA Urobilinogen 0.2 E.U./dL Normal 0.2-1.0 [facility] ([place]) Comment on above: Performed By: #### U A #### Brett [address] [place], [place] [address] Urobilinogen (U) [Mass/Vol] Negative Normal Negative [facility] ([place]) Comment on above: Performed By: #### U A #### Brettjessica [address] [place], [place] [address] .Auto Diffon 10-20-2022 Basophil, Absolute 0.1 10 3/mcL Normal 0.0-0.2 On license of [facility] ([place]) Comment on above: Performed By: #### C BC, CMP, ADIFF, MDW, LIP, ANEU, GFR #### [address] [address] Basophils/100 WBC (Bld) 1.1 % Normal 0.0-2.5 [facility] ([place]) Comment on above: Performed By: #### C BC, CMP, ADIFF, MDW, LIP, ANEU, GFR #### [address] [address] Eosinophil, Absolute 0.1 10 3/mcL Normal 0.0-0.4 [facility] ([place]) Comment on above: Performed By: #### C BC, CMP, ADIFF, MDW, LIP, ANEU, GFR #### [address] [address] Eosinophils/100 WBC (Bld) 1.7 % Normal 0.0-7.0 [facility] ([place]) Comment on above: Performed By: #### C BC, CMP, ADIFF, MDW, LIP, ANEU, GFR #### [address] [address] Lymphocyte, Absolute 2.3 10 3/mcL Normal 0.8-3.9 [facility] ([place]) Comment on above: Performed By: #### C BC, CMP, ADIFF, MDW, LIP, ANEU, GFR #### [address] [address] Lymphocytes/100 WBC (Bld) 26.4 % Normal 10.0-50.0 [facility] [facility] ([place]) Comment on above: Performed By: #### C BC, CMP, ADIFF, MDW, LIP, ANEU, GFR #### [address] [address] Monocyte, Absolute 0.6 10 3/mcL Normal 0.2-1.0 On license of [facility] ([place]) Comment on above: Performed By: #### C BC, CMP, ADIFF, MDW, LIP, ANEU, GFR #### [address] [address] Monocytes/100 WBC (Bld) 6.9 % Normal 1.7-13.0 [facility] ([place]) Comment on above: Performed By: #### C BC, CMP, ADIFF, MDW, LIP, ANEU, GFR #### [address] [address] Neutrophils/100 WBC (Bld) 63.9 % Normal 37.0-80.0 [facility] ([place]) Comment on above: Performed By: #### C LANI, CORNELIA, ANURAG CYR, SHAHLA, ANEU, GFR #### [address] [address] .GFRon 10-20-2022 GFR 100 ml/min/1.73sqm Normal [facility] ([place]) Comment on above: Result Comment: GFR [...] CORNELIA, ANURAG CYR, LIP, ANEU, GFR #### [address] [address] GFR Non- 83 ml/min/1.73sqm Normal [facility] ([place]) Comment on above: Result Comment: GFR Population [...] CMP, ADIFF, MDW, LIP, ANEU, GFR #### [place] [address] .MDWon 10-20-2022 Monocyte Distribution Width 16.96 Normal 0.00-20.00 [facility] ([place]) Comment on above: Result Comment: For ED adult patients suspected of sepsis, MDW<=20.0 does not rule out sepsis or risk of sepsis Performed By: #### C BC, CMP, ADIFF, MDW, LIP, ANEU, GFR #### [place] [address] .NEUABSon 10-20-2022 Neutrophil, Absolute 5.5 10 3/mcL Normal 2.9-6.2 [facility] ([place]) Comment on above: Performed By: #### C BC, CMP, ADIFF, MDW, LIP, ANEU, GFR #### [place] [address] CBCon 10-20-2022 Erythrocyte distribution width (RBC) [Ratio] 12.9 % Normal 11.5-14.5 [facility] ([place]) Comment on above: Performed By: #### C BC, CMP, ADIFF, MDW, LIP, ANEU, GFR #### [place] [address] Hematocrit (Bld) [Volume fraction] 41.4 % Low 42.0-52.0 [facility] ([place]) Comment on above: Performed By: #### C BC, CMP, ADJAN, MDW, LIP, ANEU, GFR #### [place] [address] Hgb 14.1 G/dL Normal 14.0-18.0 [facility] ([place]) Comment on above: Performed By: #### C BC, CMP, ADJAN, MDW, LIP, ANEU, GFR #### [place] [address] MCH (RBC) [Entitic mass] 30.4 pg Normal 27.0-31.2 [facility] ([place]) Comment on above: Performed By: #### C BC, CMP, ADIFF, MDW, LIP, ANEU, GFR #### [address] [address] MCHC 34.0 G/dL Normal 31.8-35.4 [facility] ([place]) Comment on above: Performed By: #### C BC, CMP, ADIFF, MDW, LIP, ANEU, GFR #### [place] [phone] MCV (RBC) [Entitic vol] 89.5 fL Normal 80.0-94.0 [facility] ([place]) Comment on above: Performed By: #### C BC, CMP, ADIFF, MDW, LIP, ANEU, GFR #### [place] [id number] Platelet 288 10 3/mcL Normal 130-400 [facility] ([place]) Comment on above: Performed By: #### C BC, CMP, ADIFF, MDW, LIP, ANEU, GFR #### [place] [address] Platelet mean volume (Bld) [Entitic vol] 7.3 fL Low 7.4-10.4 [facility] ([place]) Comment on above: Performed By: #### C BC, CMP, ADIFF, MDW, LIP, ANEU, GFR #### [address] [address] RBC 4.62 10 6/mcL Normal 4.04-6.13 [facility] ([place]) Comment on above: Performed By: #### C BC, CMP, ADIFF, MDW, LIP, ANEU, GFR #### [place] [phone] WBC 8.6 10 3/mcL Normal 4.6-10.8 [facility] ([place]) Comment on above: Performed By: #### C BC, CMP, ADIFF, MDW, LIP, ANEU, GFR #### [place] [phone] CMPon 10-20-2022 Albumin Level 3.4 G/dL Low 3.5-5.0 [facility] ([place]) Comment on above: Performed By: #### C BC, CORNELIA, KLARISSA, W, LIP, ANEU, GFR #### [address] [address] Albumin/Globulin [Mass ratio] 1.1 {ratio} Normal 1.1-2.5 [facility] ([place]) Comment on above: Performed By: #### C BC, CMP, KLARISSA, W, LIP, ANEU, GFR #### [address] [address] ALP [Catalytic activity/Vol] 47 U/L Normal 40-135 [facility] ([place]) Comment on above: Performed By: #### C BC, CMP, KLARISSA, W, LIP, ANEU, GFR #### [address] [address] ALT [Catalytic activity/Vol] 21 U/L Normal 16-63 [facility] ([place]) Comment on above: Performed By: #### C BC, CMP, KLARISSA, MDW, LIP, ANEU, GFR #### [address] [address] AST [Catalytic activity/Vol] 18 U/L Normal 10-40 [facility] ([place]) Comment on above: Performed By: #### C BC, CMP, KLARISSA, MDW, LIP, ANEU, GFR #### [address] [address] Bili Total 0.2 mg/dL Normal 0.2-1.0 [facility] ([place]) Comment on above: Result Comment: Use of this assay is not recommended for patients undergoing treatment with eltrombopag due to the potential for falsely elevated results. Performed By: #### C BC, CMP, KLARISSA, MDW, LIP, ANEU, GFR #### [address] [address] BUN/Creatinine Ratio 13 ratio Normal 7-27 On license of [facility] ([place]) Comment on above: Performed By: #### C BC, CMP, KLARISSA, W, LIP, ANEU, GFR #### [address] [address] Calcium [Mass/Vol] 8.8 mg/dL Normal 8.4-10.2 [facility] ([place]) Comment on above: Performed By: #### C BC, CMP, ADIFF, MDW, LIP, ANEU, GFR #### [place] [phone] Chloride [Moles/Vol] 105 mmol/L Normal 98-107 On license of [facility] ([place]) Comment on above: Performed By: #### C BC, CMP, ADIFF, MDW, LIP, ANEU, GFR #### [place] [address] CO2 [Moles/Vol] 27 mmol/L Normal 22-29 [facility] ([place]) Comment on above: Performed By: #### C BC, CMP, ADIFF, MDW, LIP, ANEU, GFR #### [place] [phone] Creatinine [Mass/Vol] 0.99 mg/dL Normal 0.70-1.30 [facility] ([place]) Comment on above: Performed By: #### C BC, CMP, ADIFF, MDW, LIP, ANEU, GFR #### [address] [address] Electrolyte Balance 9.0 mEq/L Normal 4.0-15.0 [facility] ([place]) Comment on above: Performed By: #### C BC, CMP, ADIFF, MDW, LIP, ANEU, GFR #### [address] [address] Globulin 3.2 G/dL Normal [facility] ([place]) Comment on above: Performed By: #### C BC, CMP, ADIFF, MDW, LIP, ANEU, GFR #### [address] [address] Glucose [Mass/Vol] 109 mg/dL High 70-105 [facility] ([place]) Comment on above: Performed By: #### C BC, CMP, ADIFF, MDW, LIP, ANEU, GFR #### [address] [address] Potassium [Moles/Vol] 3.9 mmol/L Normal 3.5-5.1 [facility] ([place]) Comment on above: Performed By: #### C BC, CMP, ADIFF, MDW, LIP, ANEU, GFR #### [address] [address] Sodium [Moles/Vol] 141 mmol/L Normal 136-145 [facility] ([place]) Comment on above: Performed By: #### C BC, CMP, ADIFF, MDW, LIP, ANEU, GFR #### [address] [address] Total Protein 6.6 G/dL Normal 6.4-8.2 [facility] ([place]) Comment on above: Performed By: #### C BC, CMP, ADIFF, MDW, LIP, ANEU, GFR #### [address] [address] Urea nitrogen [Mass/Vol] 13 mg/dL Normal 7-18 [facility] ([place]) Comment on above: Performed By: #### C BC, CMP, ADIFF, MDW, LIP, ANEU, GFR #### [address] [address] [address] ABD/PELVIS W/ IV CONTRAST ONLYon 10-20-2022 [...] 6:25:29 PM Ordering Provider: LEDY REESE Normal [facility]) [place] 10-20-2022 Lactic Acid Lvl 1.2 mmol/L Normal 0.4-2.0 Replaced by [facility]) Comment on above: Performed By: #### C LANI, CORNELIA, KLARISSA, W, LIP, ANEU, GFR #### [address] [address] LIPon 10-20-2022 Lipase Level 43 U/L Normal 16-77 Count includes the [facility]) Comment on above: Performed By: #### C BC, CMP, KLARISSA, W, LIP, ANEU, GFR #### [place] [id number] [place], [place] [address] LABORATORYOrdered By: Usha Tenorio on 08-28-2022 Basophil, [...] 10.8 10^3/mcL AO Workflow SS LABORATORYOrdered By: [employer] on 07-15-2022 Calcium [Mass/Vol] 8.4 mg/dL [...] [Moles/Vol] 6 mmol/L 3 - 13 mmol/L [facility] Calcium [Mass/Vol] 9.0 mg/dL 8.4 - 10. 4 mg/dL [facility] Chloride [Moles/Vol] 105 mmol/L 98 - 10 7 mmol/L [facility] CO2 [Moles/Vol] 26 mmol/L 22 - 30 mmol/L [facility] Creatinine [Mass/Vol] 0.71 mg/dL 0.66 - 1.25 mg/dL [facility] GFR/1.73 sq M.predicted MDRD (S/P/Bld) [Vol rate/Area] - PINF [facility] Comment on above: Calculation based on the Chronic Kidney Disease Epidemiology Collaboration (CKD-EPI) equation refit without adjustment for race Glucose [Mass/Vol] 100 mg/dL 70 - 100 mg/dL [facility] Interpretation and review of laboratory results Normal [facility] Potassium [Moles/Vol] 4.3 mmol/L 3.5 - 5.1 mmol/L [facility] Sodium [Moles/Vol] 137 mmol/L 135 - 145 mmol/L [facility] Urea nitrogen [Mass/Vol] 14 mg/dL 9 - 20 mg/dL [facility] CBC W Auto Differential pane l (Bld)Ordered By: Rhonda Biggs on 06-19-2022 Basophils (Bld) [#/Vol] 0.1 10*3/uL 0.0 - 0.2 10*3/uL [facility] Basophils/100 WBC (Bld) 1.3 % 0.0 - 2.0 % [facility] Eosinophils (Bld) [#/Vol] 0.2 10*3/uL 0.0 - 0.5 10*3/uL [facility] Eosinophils/100 WBC (Bld) 2.4 % 1.0 - 6.0 % [facility] Erythrocyte distribution width (RBC) [Ratio] 14.3 % 11.5 - 14.5 % [facility] Hematocrit (Bld) [Volume fraction] 42.3 % 40.0 - 52.0 % [facility] Hemoglobin (Bld) [Mass/Vol] 14.5 g/dL 13.0 - 18.0 g/dL [facility] Interpretation and review of laboratory results Abnormal [facility] Lymphocytes (Bld) [#/Vol] 2.9 10*3/uL 1.0 - 4.3 10*3/uL [facility] Lymphocytes/100 WBC (Bld) 31.3 % 20.0 - 40.0 % [facility] MCH (RBC) [Entitic mass] 30.7 pg 26.0 - 34.0 pg [facility] MCHC (RBC) [Mass/Vol] 34.2 % 32.0 - 36.0 % [facility] MCV (RBC) [Entitic vol] 90.0 fL 80.0 - 98.0 fL [facility] Monocytes (Bld) [#/Vol] 0.6 10*3/uL 0.0 - 0.8 10*3/uL [facility] Monocytes/100 WBC (Bld) 6.3 % 2.0 - 10.0 % [facility] Neutrophils (Bld) [#/Vol] 5.4 10*3/uL 1.8 - 7.0 10*3/uL [facility] Neutrophils/100 WBC (Bld) 58.7 % 40.0 - 80.0 % [facility] Nucleated RBC/100 WBC (Bld) [Ratio] 0.0 % [facility] Platelet mean volume (Bld) [Entitic vol] 7.0 fL Low 7.4 - 12.4 fL [facility] Platelets (Bld) [#/Vol] 296 10*3/uL 140 - 440 10*3/uL [facility] RBC (Bld) [#/Vol] 4.70 10*6/uL 4.40 - 5.9 0 10*6/uL [facility] WBC (Bld) [#/Vol] 9.2 10*3/uL 3.6 - 10.7 10*3/uL [facility] Laboratory - Drug toxicology on 06-19-2022 carBAMazepine [Mass/Vol] 14.5 ug/mL High 4.0 - 12.0 ug/mL [facility] No Panel Informationon 06-19 Interpretation and review of laboratory results Abnormal [facility] EMERGENCY REPORTon 2 EMERGENCY REPORT [facility] EM[facility] REPORT NAME ACCOUNT SEX AGE ADMIT DISCHARGE PT MED. RECORD# NUMBER DATE DATE TYPE GA [id number] M [id number] 05/22/22 05/23/22 3 PATRICK Guerrero [id number] ROOM: [facility] DATE OF : 1980 DICTATING PHYSICIAN: Patrick [...] and his mother. He works at an [employer] business. He has done that for sometime. [...] sinus mechanism without any evidence of acute CT or ischemia. Rate was 111. Emergency room [...] Patrick Vigil DO 05/23/22 07:02 JOB #: [id number] Transcribed By: am 05/23/22 13:53 Electronically signed by: E-SIGN PATRICK VIGIL DO 06/12/22 05:26 Page 2 of 2 PATRICK KOROMA Emergency Room Report A Normal [facility] CT ABDOMEN PELVIS WITH IV [...] thickening. Please correlate with urinalysis for infection. [facility] Workstation ID: [id number] Dictated by: ROSAURA ROBLES on FriJun 10, 2022 2:32:31 AM EST Transcribed by: CHARLIE JIMENEZ on FriJun 10, 2022 2:35:27 AM EST Finalized by: ROSAURA ROBLES on FriJun 10, 2022 2:46:42 AM EST Normal [facility] Comment on above: Order Comment: Injur [...] origins. 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 No large vessel occlusion is seen. 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 OTHER: No pathologic intracranial enhancement is seen. IMPRESSION: 1. No acute intracranial abnormality. No hemorrhage or mass effect. 2. Intracranial extracranial vessels demonstrate no stenosis, thrombus, dissection, aneurysm, or large vessel occlusion. 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 3. Acute on chronic haas sinusitis in [...] FriJun 06, 2022 12:50:41 AM EST Normal [facility] Comment on above: Order Comment: Injur [...] CRP 2.80 mg/dl High 0.00 - 0.90 [facility] Comment on above: Performed By: #### 2 22869 #### [facility],[address] [place] [address] CBC + DIFFon 05-23-2022 Baso # 0.10 x10EE3/UL Normal 0.00 - 0.10 [facility] Comment on above: Performed By: #### 2 53169 #### [facility],[address] [place] [address] Basophils/100 WBC (Bld) 1.1 % Normal 0.0 - 2.0 [facility] Comment on above: Performed By: #### 2 58889 #### [facility],[address] [place] [address] CBC + DIFF Normal [facility] Comment on above: Result Comment: CBC- COMPLETE BLOOD COUNT Performed By: #### 2 09468 #### [facility],[address] [place] [address] EO # 0.20 x10EE3/UL Normal 0.00 - 0.50 [facility] Comment on above: Performed By: #### 2 35065 #### [facility],[address] [place] [address] Eosinophils/100 WBC (Bld) 1.2 % Normal 0.0 - 7.0 [facility] Comment on above: Performed By: #### 2 00265 #### [facility],[address] [place] [address] Erythrocyte distribution width (RBC) [Ratio] 13.4 % Normal 12.0 - 15.6 [facility] Comment on above: Performed By: #### 2 25574 #### [facility],[address] [place], [place] [address] Hematocrit (Bld) [Volume fraction] 44.7 % Normal 40.0 - 52.0 [facility] Comment on above: Performed By: #### 2 14338 #### [facility],[address] [place] [address] Hemoglobin (Bld) [Mass/Vol] 15.0 g/dL Normal 13.0 - 17.5 [facility] Comment on above: Performed By: #### 2 72474 #### [facility],[address] [place] [address] Lymph # 2.80 x10EE3/UL Normal 0.80 - 2.80 [facility] Comment on above: Performed By: #### 2 52351 #### [facility],[address] [place] [address] Lymphocytes/100 WBC (Bld) 19.8 % Low 20.0 - 45.0 [facility] Comment on above: Performed By: #### 2 57608 #### [facility],[address] [place], [place] [address] MANUAL DIFF N/A Normal [facility] Comment on above: Performed By: #### 2 85667 #### [facility],[address] [place] [address] MCH (RBC) [Entitic mass] 30 pg Normal 27 - 33 [facility] Comment on above: Performed By: #### 2 62615 #### [facility],[address] [place] [address] MCHC 34 X10 3 Normal 32 - 36 [facility] Comment on above: Performed By: #### 2 95469 #### [facility],[address] [place] [address] MCV (RBC) [Entitic vol] 90 fL Normal 81 - 98 [facility] Comment on above: Performed By: #### 2 75450 #### [facility],[address] [place] [address] [place] # 1.00 x10EE3/UL Normal 0.20 - 1.00 [facility] Comment on above: Performed By: #### 2 19114 #### [facility],[address] [place] [address] MONOS % 6.8 % Normal 0.0 - 10.0 [facility] Comment on above: Performed By: #### 2 96820 #### [facility],[address] [place] [address] Morphology Alonso (Bld) [Interp] N/A Normal [facility] Comment on above: Result Comment: {CD] Performed By: #### 2 25618 #### [facility],[address] [place] [address] Neut # 10.00 x10EE3/UL High 1.50 - 7.10 [facility] Comment on above: Performed By: #### 2 94042 #### [facility],[address] [place] [address] Neutrophils/100 WBC (Bld) 71.1 % Normal 46.0 - 76.0 [facility] Comment on above: Performed By: #### 2 22093 #### [facility],[address] [place] [address] PLATELET 313 x10EE3/UL Normal 150 - 450 [facility] Comment on above: Performed By: #### 2 93776 #### [facility],[address] [place] [address] Platelet mean volume (Bld) [Entitic vol] 7.7 fL Normal 6.4 - 10.5 [facility] Comment on above: Result Comment: AUTO MATED DIFFERENTIAL Performed By: #### 2 61695 #### [facility],[address] [place] [address] RBC 4.95 x 10EE6/UL Normal 4.50 - 6.00 [facility] Comment on above: Performed By: #### 2 52776 #### [facility],[address] [place] [address] WBC 14.0 x 10EE3/UL High 4.5 - 10.8 [facility] Comment on above: Performed By: #### 2 65085 #### [facility],[address] [place] [address] CMP with eGFRon 05-23-2022 AGE 42 years Normal [facility] Comment on above: Performed By: #### 2 18000 #### [facility],[address] [place] [address] Albumin [Mass/Vol] 3.5 g/dL Normal 3.4 - 5.0 [facility] Comment on above: Performed By: #### 2 13362 #### [facility],[address] [place] [address] Albumin/Globulin [Mass ratio] 0.9 {ratio} Normal 0.9 - 1.6 [facility] Comment on above: Performed By: #### 2 95654 #### [facility],[address] [place] [address] ALK PHOS 44 U/L Low 46 - 116 [facility] Comment on above: Performed By: #### 2 44997 #### [facility],[address] [place] [address] ALT [Catalytic activity/Vol] 21 U/L Normal 16 - 63 [facility] Comment on above: Performed By: #### 2 65958 #### [facility],[address] [place] [address] Anion gap [Moles/Vol] 10 mmol/L Normal 10 - 20 [facility] Comment on above: Performed By: #### 2 18864 #### [facility],[address] [place] [address] AST [Catalytic activity/Vol] 16 U/L Normal 15 - 37 [facility] Comment on above: Performed By: #### 2 03273 #### [facility],[address] [place] [address] B/C RATIO 11 ratio Normal 0 - 30 [facility] Comment on above: Performed By: #### 2 43219 #### [facility],[address] [place] [address] Bilirubin [Mass/Vol] 0.2 mg/dL Normal 0.2 - 1.0 [facility] Comment on above: Performed By: #### 2 39303 #### [facility],[address] [place] [address] Calcium [Mass/Vol] 9.0 mg/dL Normal 8.5 - 10.1 [facility] Comment on above: Performed By: #### 2 68522 #### [facility],[address] [place] [address] Chloride [Moles/Vol] 101 mmol/L Normal 98 - 107 [facility] Comment on above: Performed By: #### 2 62875 #### [facility],[address] [place] [address] CMP with eGFR Normal [facility] Comment on above: Result Comment: COMP REHENSIVE METABOLIC PANEL Performed By: #### 2 64158 #### [facility],[address] [place] [address] CO2 [Moles/Vol] 30.2 mmol/L Normal 21.0 - 32.0 [facility] Comment on above: Performed By: #### 2 67210 #### [facility],[address] [place] [address] Creatinine [Mass/Vol] 0.91 mg/dL Normal 0.70 - 1.30 [facility] Comment on above: Performed By: #### 2 16252 #### [facility],[address] [place] [address] GFR/1.73 sq M.predicted among non-blacks MDRD (S/P/Bld) [Vol rate/Area] mL/min/{1.73_m2} Normal 60 - 999 [facility] Comment on above: Performed By: #### 2 90311 #### [facility],[address] [place], [place] [address] Result Comment: ACCO RDING TO THE NATIONAL KIDNEY DISEASE EDUCATION PROGRAM(NKDE), A NORMAL eGFR IS A VALUE GREATER THAN OR EQUAL TO 60 ML/MIN/1.73 SQ METERS. CHRONIC KIDNEY DISEASE: <60mL/MIN/1.73 SQ METERS KIDNEY FAILURE: <15mL/MIN/1.73 SQ METERS THIS TEST SHOULD ONLY BE USED FOR PATIENTS 18 YEARS OF AGE AND OLDER. Globulin (S) [Mass/Vol] 3.7 g/dL Normal 1.5 - 3.8 [facility] Comment on above: Performed By: #### 2 54893 #### [address] [address] Glucose [Mass/Vol] 104 mg/dL Normal 74 - 106 [facility] Comment on above: Performed By: #### 2 61994 #### [facility],[address] [place] [address] Potassium [Moles/Vol] 3.8 mmol/L Normal 3.5 - 5.1 [facility] Comment on above: Performed By: #### 2 91059 #### [address] [address] Protein [Mass/Vol] 7.2 g/dL Normal 6.4 - 8.2 [facility] Comment on above: Performed By: #### 2 31293 #### [facility],[address] [place] [address] Sodium [Moles/Vol] 137 mmol/L Normal 136 - 145 [facility] Comment on above: Performed By: #### 2 40062 #### [facility],[address] [place] [address] Urea nitrogen [Mass/Vol] 10 mg/dL Normal 7 - 18 [facility] Comment on above: Performed By: #### 2 92704 #### [facility],[address] [place] [address] BRAIN W/O CONTRASTon 12-0 CT BRAIN W/O CONTRAST [place] [address] Patient: PATRICK KOROMA Phone#: : 1980 Age: 42 Gender: M Pt. Type: ER Account: [id number] Location: [id number] Ordering: DR. PATRICK VIGIL Exam Date: 05/22/2022/23:10 Family Phys: Charge Code: [id number] Physician: [place] Order #: [id number] Dose#: [id number] PROCEDURE: CT BRAIN WITHOUT CONTRAST COMPARISON: [facility], CT, BRAIN W/O CON, 12/03/2011, [...] Waters MD on 05/23/2022 at 14:41 Normal [facility] SEDRATEon 05-23-2022 SEDRATE 13 mm/hr Normal 0 - 20 [facility] Comment on above: Performed By: #### 2 57089 #### [facility],[address] [place] [address] TROPONIN I, HIGH SENSITIVITY on 05-23-2022 HS TROPONIN 4.4 pg/mL Normal 0.0 - 76.2 [facility] Comment on above: Performed By: #### 2 06946 #### [facility],[address] [place] [address] XR SHOULDER RIGHT (MIN 2 VIE WS)on [...] Rosas Silva MD 04/25/22 Final result Normal [facility] Comment on above: Order Comment: Reaso n for exam:->ac joint deformity/pain No acute abnormality . [facility] EXAMINATION: THREE XRAY VIEWS OF THE RIGHT SHOULDER 04/25/2022 5:40 pm COMPARISON: None. HISTORY: ORDERING SYSTEM PROVIDED HISTORY: ac joint deformity/pain TECHNOLOGIST PROVIDED HISTORY: Reason for exam:->ac joint deformity/pain FINDINGS: Glenohumeral joint is normally aligned. No evidence of acute fracture or dislocation. No abnormal periarticular calcifications. The AC joint is unremarkable in appearance. Visualized lung is unremarkable. [facility] Rosas Silva MD - [...] is unremarkable. IMPRESSION: No acute abnormality. [facility]ICKIE [employer] Phone: Radiology Study observation (narrative) RICKIE CORTEZ [employer] Phone: XR SHOULDER RIGHT (MIN 2 VIE WS)Ordered By: Rosas Silva on 04-25-2022 [employer] [employer] Phone: XR WRIST RIGHT (MIN 3 VIEWS) [...] Abdifatah Child DO 04/03/22 Final result Normal [facility] Comment on above: Order Comment: Reaso n for exam:->crush injury No acute osseous abnormality involving the right wrist. [facility] EXAMINATION: XRAY VIEWS OF THE RIGHT WRIST 04/03/2022 4:10 pm COMPARISON: None. HISTORY: ORDERING SYSTEM PROVIDED HISTORY: crush injury TECHNOLOGIST PROVIDED HISTORY: Reason for exam:->crush injury FINDINGS: No fracture or dislocation involving the right wrist. Normal carpal bone alignment. No radiopaque foreign body. [facility] Abdifatah Child DO - 04/03/2022 EXAMINATION: XRAY VIEWS OF THE RIGHT WRIST 04/03/2022 4:10 pm COMPARISON: None. HISTORY: ORDERING SYSTEM PROVIDED HISTORY: crush injury TECHNOLOGIST PROVIDED HISTORY: Reason for exam:->crush injury FINDINGS: No fracture or dislocation involving the right wrist. Normal carpal bone alignment. No radiopaque foreign body. IMPRESSION: No acute osseous abnormality involving the right wrist. RICKIE [employer] Phone: Radiology Study observation (narrative) RICKIE [employer]ORT[employer]S [employer] Phone: XR WRIST RIGHT (MIN 3 VIEWS) Ordered By: Abdifatah Child on 04-03-2022 [employer] [employer] Phone: CT CERVICAL SPINE WO CONTRAS Ton 03-08-2022 Patient Name: PATRICK KOROMA [employer] ACCESSION EXAM DATE/TIME PROCEDURE ORDERING PROVIDER [id number] 03/08/2022 01:[address] Spine Cervical w/o [id number] -DARRION, JOSELUIS Contrast CPT code 64507 Reason For Exam (CT Spine Cervical w/o [...] Tomography ACCESSION EXAM DATE/TIME PROCEDURE ORDERING PROVIDER [id number] 03/08/2022 01:[address] Spine Cervical w/o [id number] -DARRION, JOSELUIS Contrast CPT code 04959 Reason For Exam (CT Spine Cervical w/o [...] and Time: 03/08/2022 1:50 [facility] Work Phone: [facility] Work Phone: CT HEAD WO CONTRASTon 2021 [facility]: [id number] ACCESSION EXAM DATE/TIME PROCEDURE ORDERING PROVIDER [id number] 03/08/2022 01:[address] Head or Brain w/o [id number] -DARRION, JOSELUIS Contrast CPT code 91430 Reason For Exam (CT Head or Brain [...] Tomography ACCESSION EXAM DATE/TIME PROCEDURE ORDERING PROVIDER [id number] 03/08/2022 01:[address] Head or Brain w/o [id number] -DARRION, JOSELUIS Contrast CPT code 16800 Reason For Exam (CT Head or Brain [...] Date and Time: 03/08/2022 1:48 [facility] Work Phone: CT HEAD WO CONTRASTOrdered B y: Shankar Haas on 03-08-2022 [facility] Work Phone: CT Head or Brain w/o Contras ton 03-08-2022 CT Head or Brain w/o Contrast Patient Name: PATRICK KOROMA Computed Tomography ACCESSION EXAM DATE/TIME PROCEDURE ORDERING PROVIDER [id number] 03/08/2022 01:[address] Head or Brain w/o [id number] -DARRION, JOSELUIS Contrast CPT code 82260 Reason For Exam (CT Head or Brain [...] Transcribed Date and Time: 03/08/2022 1:48 Normal [facility] CT Spine Cervical w/o Contra pham 03-08-2022 CT Spine Cervical w/o Contrast Patient Name: PATRICK KOROMA Comput[employer] Tomography ACCESSION EXAM DATE/TIME PROCEDURE ORDERING PROVIDER [id number] 03/08/2022 01:[address] Spine Cervical w/o [id number] -DARRION, JOSELUIS Contrast CPT code 43591 Reason For Exam (CT Spine Cervical w/o [...] Transcribed Date and Time: 03/08/2022 1:50 Normal [facility] ED Provider Noteon [facility]Y [facility]NCOUN[facility] Pt Name: Patrick [...] plan and expressed understanding. 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 [address] Schedule an appointment as soon as possible for a visit in 1 week DISCHARGE MEDICATIONS: New Prescriptions No medications o (more content not included)... Normal [facility] No Panel Informationon 03-08 Radiology Study observation (narrative) [facility] Work Phone: Absolute lymphocyte counton 01-01-2022 Lymphocytes Auto (Unsp spec) [#/Vol] 2.19 10*3/uL 0.83-4.51 [facility] Work Phone: Basophil percentageon 2021 Basophils/100 WBC (Bld) 0.5 % 0-1 [facility] Work Phone: Bilirubin [Mass/Vol] 0.20 mg/dL 0.20-1.00 [facility] Work Phone: Comment on above: For patients on eltr ombopag therapy, use of Dimension [place] TBIL is not recommended. Chloride [Moles/Vol] 111 mmol/L 98-107 [facility] Work Phone: Eosinophils/100 WBC (Bld) 1.6 % 0-5 [facility] Work Phone: Glucose [Mass/Vol] 103 mg/dL 74-106 [facility] Work Phone: Comment on above: Fasting Glucose resu lt from 100 to 125 mg/dL suggests IMPAIRED HOMEOSTASIS per A.D.A. criteria. Neutrophils (Bld) [#/Vol] 7.1 10*3/uL 2.0-7.7 [facility] Work Phone: Neutrophils/100 WBC (Bld) 70.0 % 47-70 [facility] Work Phone: Potassium [Moles/Vol] 3.9 mmol/L 3.5-5.1 [facility] Work Phone: Protein [Mass/Vol] 7.1 g/dL 6.4-8.2 [facility] Work Phone: Sodium [Moles/Vol] 140 mmol/L 136-145 [facility] Work Phone: WBC (Bld) [#/Vol] 10.2 10*3/uL 4.4-11.0 [facility] Work Phone: Blood erythrocytes count (nu mber/volume)on 01-01-2022 RBC (Bld) [#/Vol] 4.65 10*6/uL 4.6-6.2 [facility] Work Phone: Blood hemoglobin measurement (mass/volume)on 01-01-2022 Hemoglobin (Bld) [Mass/Vol] 14.1 g/dL 13.0-16.5 [facility] Work Phone: Blood lymphocytes/100 leukoc yteson 01-01-2022 Lymphocytes/100 WBC (Bld) 21.6 % 19-41 [facility] Work Phone: Blood monocytes/100 leukocyt eson 01-01-2022 Monocytes/100 WBC (Bld) 5.8 % 0-10 [facility] Work Phone: Blood platelet mean volumeon 01-01-2022 Platelet mean volume (Bld) [Entitic vol] 9.2 fL 6.2-12.0 [facility] Work Phone: Determination of erythrocyte mean corpuscular volume (MCV)on 01-01-2022 MCV (RBC) [Entitic vol] 92.7 fL 80-94 [facility] Work Phone: Direct bilirubinon 2 Bilirubin.direct [Mass/Vol] 0.09 mg/dL 0.00-0.30 [facility] Work Phone: Hematocrit Auto (Bld) [Volum e fraction]on 01-01-2022 Hematocrit (Bld) [Volume fraction] 43.1 % 40-54 [facility] Work Phone: INR in Blood by Coagulation assayon 01-01-2022 INR Coag (Bld) [Relative time] 0.9 {INR} [facility] Work Phone: Laboratory - Chemistry and C hemistry - challengeon 01-01-2022 ALP [Catalytic activity/Vol] 43 U/L 45-117 [facility] Work Phone: ALT [Catalytic activity/Vol] 27 U/L 16-61 [facility] Work Phone: CO2 [Moles/Vol] 25.0 mmol/L 21.0-32.0 [facility] Work Phone: Globulin (S) [Mass/Vol] 3.8 g/dL 2.2-4.2 [facility] Work Phone: Urea nitrogen/Creatinine [Mass ratio] 9.2 mg/mg 10-20 [facility] Work Phone: Laboratory - Coagulationon 0 01-01-2022 aPTT Coag (Bld) [Time] 25.8 s 24.1-36.2 Wo marco a [facility] Work Phone: PT Coag (PPP) [Time] 11.9 s 11.7-14.9 [facility] Work Phone: Laboratory - Hematology and Cell countson 01-01-2022 Erythrocyte distribution width (RBC) [Entitic vol] 43.3 fL 35.1-43.9 [facility] Work Phone: Erythrocyte distribution width (RBC) [Ratio] 12.7 % 11.6-14.6 [facility] Work Phone: Immature granulocytes/100 WBC (Bld) 0.500 % 0.0-0.9 [facility] Work Phone: Comment on above: IG% - Immature Granu locytes (promyelocytes, myelocytes and metamyelocytes) > 1% indicates that a LEFT SHIFT is Present. MCH (RBC) [Entitic mass] 30.3 pg 27.0-32.0 [facility] Work Phone: Nucleated RBC/100 WBC (Bld) [Ratio] 0 % 0-5 [facility] Work Phone: MCHC Auto (RBC) [Mass/Vol]on 01-01-2022 MCHC (RBC) [Mass/Vol] 32.7 g/dL 32-36 [facility] Work Phone: No Panel Informationon 01-01 Estimated Creatinine Clearance Calc 125.00 ml/min [facility] Work Phone: Estimated GFR (MDRD) Amer 123 mL/min >60 [facility] Work Phone: Comment on above: GFR Calc Estimated GFR (MDRD) Non-Af Amer 101 mL/min >60 [facility] Work Phone: Comment on above: Non- GFR Calc Platelets bldon 01-01-2022 Platelets (Bld) [#/Vol] 328 10*3/uL 150-450 [facility] Work Phone: Serum or plasma albumin za urement (mass/volume)on 01-01-2022 Albumin [Mass/Vol] 3.3 g/dL 3.2-5.0 [facility] Work Phone: Serum or plasma calcium za urement (mass/volume)on 01-01-2022 Calcium [Mass/Vol] 9.1 mg/dL 8.5-10.1 [facility] Work Phone: Serum or plasma creatinine m easurement (mass/volume)on 01-01-2022 Creatinine [Mass/Vol] 0.87 mg/dL 0.70-1.30 [facility] Work Phone: Comment on above: The validity of the calculated GFR & GFRAA in patients over 70 years has not been determined. Clinical correlation is essential. Serum or plasma urea nitroge n measurement (mass/volume)on 01-01-2022 Urea nitrogen [Mass/Vol] 8 mg/dL 7-18 [facility] Work Phone: Thin prep Papanicolaou smear with manual screeningon 01-01-2022 Thin prep Papanicolaou smear with manual screening 22 U/L 15-37 [facility] Work Phone: Thin prep Papanicolaou smear with manual screening 4 5-15 [facility] Work Phone: LABORATORYOrdered By: Sara Echeverria [...] 11-15 Calcium [Mass/Vol] 8.8 mg/dL Normal 8.4-10.4 [facility] Comment on above: Performed By: #### L ACT3, MG3, BMP3, HEMDF #### [address] [address] [place] [address] Glucose [Mass/Vol] 99 mg/dL Normal 70-100 [facility] Comment on above: Performed By: #### L ACT3, MG3, BMP3, HEMDF #### [facility] [address] [place] [address] Anion gap [Moles/Vol] 6 mmol/L Normal 3-13 [facility] Comment on above: Performed By: #### L ACT3, MG3, BMP3, HEMDF #### [facility] [address] [place] [address] CO2 [Moles/Vol] 27 mmol/L Normal 22-30 [facility] Comment on above: Performed By: #### L ACT3, MG3, BMP3, HEMDF #### [facility] [address] [place] [address] Creatinine [Mass/Vol] 0.69 mg/dL Normal 0.52-1.25 [facility] Comment on above: Performed By: #### L ACT3, MG3, BMP3, HEMDF #### [address] [address] [place] [address] eGFR OTHER > 90.0 Normal >60 [facility] Comment on above: Result Comment: KDIG O [...] #### L ACT3, MG3, BMP3, HEMDF #### [facility] [address] [place] [address] GFR/1.73 sq M.predicted among blacks MDRD (S/P/Bld) [Vol rate/Area] mL/min/{1.73_m2} Normal >60 [facility] Comment on above: Performed By: #### L ACT3, MG3, BMP3, HEMDF #### [facility] [address] [place] [address] Urea nitrogen [Mass/Vol] 5 mg/dL Low 7-17 [facility] Comment on above: Performed By: #### L ACT3, MG3, BMP3, HEMDF #### [facility] [address] [place] [address] Chloride [Moles/Vol] 105 mmol/L Normal 98-107 [facility] Comment on above: Performed By: #### L ACT3, MG3, BMP3, HEMDF #### [facility] [address] [place] [address] Potassium [Moles/Vol] 3.8 mmol/L Normal 3.5-5.1 [facility] Comment on above: Performed By: #### L ACT3, MG3, BMP3, HEMDF #### [facility] [address] [place] [address] Sodium [Moles/Vol] 138 mmol/L Normal 135-145 [facility] Comment on above: Performed By: #### L ACT3, MG3, BMP3, HEMDF #### [facility] [address] [place] [address] CT Abdomen/Pelvis w/ Contras ton 12-05-2021 CT Abdomen/Pelvis w/ Contrast Patient Name: PATRICK KOROMA Computed Tomography ACCESSION EXAM DATE/TIME PROCEDURE ORDERING PROVIDER [id number] 12/05/2021 14:[address] Abdomen/Pelvis w/ IV [id number] -JACQUIE, Contrast (IV Onl MARTA CPT code 56214 Q9967 Reason For Exam (CT Abdomen/Pelvis w/ [...] Transcribed Date and Time: 12/05/2021 2:32 Normal [facility] Hemogram w/ Autodiffon 12-05 Abs Baso Cnt 0.1 10*3/uL Normal 0.0-0.2 [facility] Comment on above: Performed By: #### L ACT3, MG3, BMP3, HEMDF #### [address] [address] [place] [address] Abs Neutrophile Cnt 7.3 10*3/uL High 1.8-7.0 [facility] Comment on above: Performed By: #### L ACT3, MG3, BMP3, HEMDF #### [address] [address] [place] [address] Basophils/100 WBC (Bld) 0.7 % Normal 0.0-2.0 [facility] Comment on above: Performed By: #### L ACT3, MG3, BMP3, HEMDF #### [address] [address] [place] [address] Eosinophils (Bld) [#/Vol] 0.2 10*3/uL Normal 0.0-0.5 [facility] Comment on above: Performed By: #### L ACT3, MG3, BMP3, HEMDF #### [address] [address] [place] [address] Eosinophils/100 WBC (Bld) 2.0 % Normal 1.0-6.0 [facility] Comment on above: Performed By: #### L ACT3, MG3, BMP3, HEMDF #### [address] [address] Erythrocyte distribution width (RBC) [Ratio] 13.1 % Normal 11.5-14.5 [facility] Comment on above: Performed By: #### L ACT3, MG3, BMP3, HEMDF #### [address] [address] Granulocytes/100 WBC (Bld) 76.6 % Normal 40.0-80.0 [facility] Comment on above: Performed By: #### L ACT3, MG3, BMP3, HEMDF #### [address] [address] Hematocrit (Bld) [Volume fraction] 39.4 % Low 40.0-52.0 [facility] Comment on above: Performed By: #### L ACT3, MG3, BMP3, HEMDF #### [address] [address] Hemoglobin (Bld) [Mass/Vol] 13.6 g/dL Normal 13.0-18.0 [facility] Comment on above: Performed By: #### L ACT3, MG3, BMP3, HEMDF #### [address] [address] Lymphocytes (Bld) [#/Vol] 1.3 10*3/uL Normal 1.0-4.3 [facility] Comment on above: Performed By: #### L ACT3, MG3, BMP3, HEMDF #### [address] [address] Lymphocytes/100 WBC (Bld) 13.9 % Low 20.0-40.0 [facility] Comment on above: Performed By: #### L ACT3, MG3, BMP3, HEMDF #### [address] [address] MCH (RBC) [Entitic mass] 31.6 pg Normal 26.0-34.0 [facility] Comment on above: Performed By: #### L ACT3, MG3, BMP3, HEMDF #### [address] [address] MCHC 34.5 % Normal 32.0-36.0 [facility] Comment on above: Performed By: #### L ACT3, MG3, BMP3, HEMDF #### [address] [address] MCV (RBC) [Entitic vol] 91.7 fL Normal 80.0-98.0 [facility] Comment on above: Performed By: #### L ACT3, MG3, BMP3, HEMDF #### [address] [address] Monocytes (Bld) [#/Vol] 0.7 10*3/uL Normal 0.0-0.8 [facility] Comment on above: Performed By: #### L ACT3, MG3, BMP3, HEMDF #### [address] [address] Monocytes/100 WBC (Bld) 6.8 % Normal 2.0-10.0 [facility] Comment on above: Performed By: #### L ACT3, MG3, BMP3, HEMDF #### [address] [address] Platelet mean volume (Bld) [Entitic vol] 7.4 fL Normal 7.4-12.4 [facility] Comment on above: Result Comment: MPV is a calculated measurement using platelet volume ratio. Performed By: #### L ACT3, MG3, BMP3, HEMDF #### [address] [address] Platelets (Bld) [#/Vol] 389 10*3/uL Normal 140-440 [facility] Comment on above: Performed By: #### L ACT3, MG3, BMP3, HEMDF #### [address] [address] RBC (Bld) [#/Vol] 4.30 10*6/uL Low 4.40-5.90 [facility] Comment on above: Performed By: #### L ACT3, MG3, BMP3, HEMDF #### [address] [place] [address] WBC (Bld) [#/Vol] 9.6 10*3/uL Normal 3.6-10.7 [facility] Comment on above: Performed By: #### L ACT3, MG3, BMP3, HEMDF #### [address] [place] [address] Lactic Acidon 12-05-2021 Lactate [Moles/Vol] 1.1 mmol/L Normal 0.7-2.0 [facility] Comment on above: Performed By: #### L ACT3, MG3, BMP3, HEMDF #### [address] [place] [address] Magnesiumon 12-05-2021 Magnesium [Mass/Vol] 2.2 mg/dL Normal 1.6-2.3 [facility] Comment on above: Performed By: #### L ACT3, MG3, BMP3, HEMDF #### [address] [place] [address] LABORATORYOrdered By: Sara Echeverria on 11-30-2021 Basophil, [...] Documentson 12-29-2016 Patient Summary Documents Normal [facility] Emergency Room Note on 12-24-2016 [place] [facility] Note Normal [facility] [...] By: Harriet Stoddard MDPreliminary Report By: Stephan Satler DOElectronically Signed By: Harriet Stoddard MD Dictated Date: 12/23/2016 4:18:58 PM Prelim Date: 12/23/2016 4:19:32 PM Sign Date: 12/23/2016 4:46:15 PM Normal [facility] Emergency Room Note on 12-16-2016 [place] [facility] Note Normal [facility] Patient Summary Documentson 12-16-2016 Patient Summary Documents Normal [facility] Vital Signs Date Time Vital Sign Value Performing Clinician Berkley durham 03-24-2025 22:32-0400 Body temperature 98.4 [degF] Viola Starkey INSTRUMENT PROCESSING TECH-C Work Phone: [facility] 03-24-2025 22:32-0400 Diastolic blood pressure 96 mm[Hg] Viola Starkey INSTRUMENT PROCESSING TECH-C Work Phone: [facility] 03-24-2025 22:32-0400 Heart rate 86 /min Viola Starkey INSTRUMENT PROCESSING TECH-C Work Phone: [facility] 03-24-2025 22:32-0400 Respiratory rate 18 /min Viola Starkey INSTRUMENT PROCESSING TECH-C Work Phone: [facility] 03-24-2025 22:32-0400 SaO2% (BldA) [Mass fraction] 98 % Viola Starkey INSTRUMENT PROCESSING TECH-C Work Phone: [facility] 03-24-2025 22:32-0400 Systolic blood pressure 134 mm[Hg] Viola Starkey INSTRUMENT PROCESSING TECH-C Work Phone: [facility] 03-24-2025 19:54-0400 Body height 187.96 cm Viola Starkey INSTRUMENT PROCESSING TECH-C Work Phone: [facility] 03-24-2025 19:54-0400 Body mass index (BMI) [Ratio] 44.9 kg/m2 Viola Starkey INSTRUMENT PROCESSING TECH-C Work Phone: [facility] 03-24-2025 19:54-0400 Body weight 158.78 kg Viola Starkey INSTRUMENT PROCESSING TECH-C Work Phone: [facility] 03-08-2025 00:56-0400 Body temperature 98 [degF] Viola Starkey INSTRUMENT PROCESSING TECH-C Work Phone: [facility] 03-08-2025 00:56-0400 Diastolic blood pressure 81 mm[Hg] Viola Starkey INSTRUMENT PROCESSING TECH-C Work Phone: [facility] 03-08-2025 00:56-0400 Heart rate 70 /min Viola Starkey INSTRUMENT PROCESSING TECH-C Work Phone: [facility] 03-08-2025 00:56-0400 Respiratory rate 16 /min Viola Starkey INSTRUMENT PROCESSING TECH-C Work Phone: [facility] 03-08-2025 00:56-0400 SaO2% (BldA) [Mass fraction] 98 % Viola Starkey INSTRUMENT PROCESSING TECH-C Work Phone: [facility] 03-08-2025 00:56-0400 Systolic blood pressure 122 mm[Hg] Viola Starkey INSTRUMENT PROCESSING TECH-C Work Phone: [facility] 03-07-2025 22:38-0400 Body height 187.96 cm Viola Starkey INSTRUMENT PROCESSING TECH-C Work Phone: [facility] 03-07-2025 22:38-0400 Body mass index (BMI) [Ratio] 44.1 kg/m2 Viola Starkey INSTRUMENT PROCESSING TECH-C Work Phone: [facility] 03-07-2025 22:38-0400 Body weight 156 kg Viola Starkey INSTRUMENT PROCESSING TECH-C Work Phone: [facility] 02-27-2025 23:00-0400 Body temperature 98 [degF] Viola Starkey INSTRUMENT PROCESSING TECH-C Work Phone: [facility] 02-27-2025 23:00-0400 Diastolic blood pressure 80 mm[Hg] Viola Starkey INSTRUMENT PROCESSING TECH-C Work Phone: [facility] 02-27-2025 23:00-0400 Heart rate 73 /min Viola Starkey INSTRUMENT PROCESSING TECH-C Work Phone: [facility] 02-27-2025 23:00-0400 Respiratory rate 16 /min Viola Starkey INSTRUMENT PROCESSING TECH-C Work Phone: [facility] 02-27-2025 23:00-0400 SaO2% (BldA) [Mass fraction] 98 % Viola Starkey INSTRUMENT PROCESSING TECH-C Work Phone: [facility] 02-27-2025 23:00-0400 Systolic blood pressure 133 mm[Hg] Viola Starkey INSTRUMENT PROCESSING TECH-C Work Phone: [facility] 02-27-2025 20:51-0400 Body height 187.96 cm Viola Starkey INSTRUMENT PROCESSING TECH-C Work Phone: [facility] 02-27-2025 20:51-0400 Body mass index (BMI) [Ratio] 44.3 kg/m2 Viola Starkey INSTRUMENT PROCESSING TECH-C Work Phone: [facility] 02-27-2025 20:51-0400 Body weight 156.63 kg Viola Starkey INSTRUMENT PROCESSING TECH-C Work Phone: [facility] 02-18-2025 00:05-0400 Body temperature 98.7 [degF] Viola Starkey INSTRUMENT PROCESSING TECH-C Work Phone: [facility] 02-18-2025 00:05-0400 Diastolic blood pressure 69 mm[Hg] Viola Starkey INSTRUMENT PROCESSING TECH-C Work Phone: [facility] 02-18-2025 00:05-0400 Heart rate 90 /min Viola Starkey INSTRUMENT PROCESSING TECH-C Work Phone: [facility] 02-18-2025 00:05-0400 Respiratory rate 18 /min Viola Starkey INSTRUMENT PROCESSING TECH-C Work Phone: [facility] 02-18-2025 00:05-0400 SaO2% (BldA) [Mass fraction] 96 % Viola Starkey INSTRUMENT PROCESSING TECH-C Work Phone: [facility] 02-18-2025 00:05-0400 Systolic blood pressure 136 mm[Hg] Viola Starkey INSTRUMENT PROCESSING TECH-C Work Phone: [facility] 02-17-2025 21:21-0400 Body height 187.96 cm Viola Starkey INSTRUMENT PROCESSING TECH-C Work Phone: [facility] 02-17-2025 21:21-0400 Body mass index (BMI) [Ratio] 43.9 kg/m2 Viola Starkey INSTRUMENT PROCESSING TECH-C Work Phone: [facility] 02-17-2025 21:21-0400 Body weight 155.12 kg Viola Starkey INSTRUMENT PROCESSING TECH-C Work Phone: [facility] 01-26-2025 00:05-0400 Body temperature 98 [degF] Viola Starkey INSTRUMENT PROCESSING TECH-C Work Phone: [facility] 01-26-2025 00:05-0400 Diastolic blood pressure 90 mm[Hg] Viola Starkey INSTRUMENT PROCESSING TECH-C Work Phone: [facility] 01-26-2025 00:05-0400 Heart rate 78 /min Viola Starkey INSTRUMENT PROCESSING TECH-C Work Phone: [facility] 01-26-2025 00:05-0400 Respiratory rate 16 /min Viola Fernandessey INSTRUMENT PROCESSING TECH-C Work Phone: [facility] 01-26-2025 00:05-0400 SaO2% (BldA) [Mass fraction] 97 % Viola Fernandessey INSTRUMENT PROCESSING TECH-C Work Phone: [facility] 01-26-2025 00:05-0400 Systolic blood pressure 140 mm[Hg] Viola Starkey INSTRUMENT PROCESSING TECH-C Work Phone: [facility] 01-25-2025 22:23-0400 Body height 187.96 cm Viola Starkey INSTRUMENT PROCESSING TECH-C Work Phone: [facility] 01-25-2025 22:23-0400 Body mass index (BMI) [Ratio] 43.9 kg/m2 Viola Starkey INSTRUMENT PROCESSING TECH-C Work Phone: [facility] 01-25-2025 22:23-0400 Body weight 155.12 kg Viola Starkey INSTRUMENT PROCESSING TECH-C Work Phone: [facility] 12-29-2024 22:56-0400 Body temperature 98.6 [degF] Viola Starkey INSTRUMENT PROCESSING TECH-C Work Phone: [facility] 12-29-2024 22:56-0400 Diastolic blood pressure 94 mm[Hg] Viola Starkey INSTRUMENT PROCESSING TECH-C Work Phone: [facility] 12-29-2024 22:56-0400 Heart rate 79 /min Viola Starkey INSTRUMENT PROCESSING TECH-C Work Phone: [facility] 12-29-2024 22:56-0400 Respiratory rate 18 /min Viola Fernandessey INSTRUMENT PROCESSING TECH-C Work Phone: [facility] 12-29-2024 22:56-0400 SaO2% (BldA) [Mass fraction] 98 % Viola Fernandessey INSTRUMENT PROCESSING TECH-C Work Phone: [facility] 12-29-2024 22:56-0400 Systolic blood pressure 159 mm[Hg] Viola Starkey INSTRUMENT PROCESSING TECH-C Work Phone: [facility] 12-29-2024 21:21-0400 Body height 187.96 cm Viola Lalito INSTRUMENT PROCESSING TECH-C Work Phone: [facility] 12-29-2024 21:21-0400 Body mass index (BMI) [Ratio] 44.1 kg/m2 Viola Starkey INSTRUMENT PROCESSING TECH-C Work Phone: [facility] 12-29-2024 21:21-0400 Body weight 156.03 kg Viola Starkey INSTRUMENT PROCESSING TECH-C Work Phone: [facility] 12-08-2024 23:34-0400 Body height 187.[address] Cristian Tate Work Phone: [facility] 12-08-2024 23:34-0400 Body mass index (BMI) [Ratio] 44.6 kg/m2 Dr. Cristian Tate Work Phone: [facility] 12-08-2024 23:34-0400 Body temperature 98 [degF] Dr. Cristian Tate Work Phone: [facility] 12-08-2024 23:34-0400 Body weight 157.[address] Cristian Guadalupe DO Work Phone: 6(832)121-679557 [place] [address] 12-08-2024 23:34-0400 Diastolic blood pressure 105 mm[Hg] Dr. Cristian Tate Work Phone: 4(207)214-136657 [place] [address] 12-08-2024 23:34-0400 Heart rate 104 /min Dr. Cristian Tate Work Phone: 5(792)232-870057 [place] [address] 12-08-2024 23:34-0400 Respiratory rate 22 /min Dr. Cristian Guadalupe DO Work Phone: 3(618)215-137757 [place] [address] 12-08-2024 23:34-0400 SaO2% (BldA) [Mass fraction] 99 % Dr. Cristian Tate Work Phone: 7(041)010-478557 [place] [address] 12-08-2024 23:34-0400 Systolic blood pressure 175 mm[Hg] Dr. Cristian Tate Work Phone: 8(726)554-989957 [place] [address] 12-07-2024 00:21-0400 Body temperature 96.9 [degF] Dr. Cristian Tate Work Phone: 4(768)528-761457 [place] [address] 12-07-2024 00:21-0400 Diastolic blood pressure 92 mm[Hg] Dr. Cristian Tate Work Phone: 1(384)917-257457 [place] [address] 12-07-2024 00:21-0400 Heart rate 103 /min Dr. Cristian Tate Work Phone: 1(235)859-620257 [place] [address] 12-07-2024 00:21-0400 Respiratory rate 16 /min Dr. Cristian Tate Work Phone: 7(916)263-346657 [place] [address] 12-07-2024 00:21-0400 SaO2% (BldA) [Mass fraction] 99 % Dr. Cristian Tate Work Phone: 4(109)236-416457 [place] [address] 12-07-2024 00:21-0400 Systolic blood pressure 137 mm[Hg] Dr. Cristian Tate Work Phone: 8(171)950-707157 [place] [address] 12-06-2024 23:19-0400 Body height 187.[address] Cristian Tate Work Phone: 7(831)582-051557 [place] [address] 12-06-2024 23:19-0400 Body mass index (BMI) [Ratio] 43.9 kg/m2 Dr. Cristian Tate Work Phone: 0(202)574-959757 [place] [address] 12-06-2024 23:19-0400 Body weight 155.[address] Cristian aTte Work Phone: 2(118)506-752857 [place] [address] 09-19-2024 22:25-0400 Body temperature 97 [degF] Dr. Cristian Tate Work Phone: 8(985)075-545474 [place] [address] 09-19-2024 22:25-0400 Diastolic blood pressure 93 mm[Hg] Dr. Cristian Tate Work Phone: 9(172)590-749557 [place] [address] 09-19-2024 22:25-0400 Heart rate 99 /min Dr. Cristian Tate Work Phone: 6(210)873-614657 [place] [address] 09-19-2024 22:25-0400 Respiratory rate 16 /min Dr. Cristian Tate Work Phone: 0(236)425-036357 [place] [address] 09-19-2024 22:25-0400 SaO2% (BldA) [Mass fraction] 97 % Dr. Cristian Tate Work Phone: 7(267)207-714557 [place] [address] 09-19-2024 22:25-0400 Systolic blood pressure 136 mm[Hg] Dr. Cristian Tate Work Phone: 9(289)015-412157 [place] [address] 09-19-2024 21:32-0400 Body mass index (BMI) [Ratio] 44.7 kg/m2 Dr. Cristian Tate Work Phone: 2(247)673-357657 [place] [address] 09-19-2024 21:32-0400 Body weight 158.[address] Cristian Tate Work Phone: 9(650)283-331657 [place] [address] 09-19-2024 21:16-0400 Body height 187.[address] Cristian Tate Work Phone: 7(127)359-897757 [place] [address] 08-24-2024 22:40-0400 Body temperature 99.1 [degF] No Primary Care Physician [facility] 08-24-2024 22:40-0400 Diastolic blood pressure 70 mm[Hg] No Primary Care Physician [facility] 08-24-2024 22:40-0400 Heart rate 80 /min No Primary Care Physician [facility] 08-24-2024 22:40-0400 Respiratory rate 16 /min No Primary Care Physician [facility] 08-24-2024 22:40-0400 SaO2% (BldA) [Mass fraction] 100 % No Primary Care Physician [facility] 08-24-2024 22:40-0400 Systolic blood pressure 118 mm[Hg] No Primary Care Physician [facility] 08-24-2024 21:04-0400 Body height 187.96 cm No Primary Care Physician [facility] 08-24-2024 21:04-0400 Body mass index (BMI) [Ratio] 44.1 kg/m2 No Primary Care Physician [facility] 08-24-2024 21:04-0400 Body weight 155.99 kg No Primary Care Physician [facility] 08-13-2024 12:44-0500 Body height 188 cm Stephon Benavides MD Work Phone: [facility] 08-13-2024 12:44-0500 Body mass index (BMI) [Ratio] 43.78 kg/m2 Stephon Benavides MD Work Phone: [facility] 08-13-2024 12:44-0500 Body weight 154.68 kg Stephon Benavides MD Work Phone: [facility] 08-13-2024 12:44-0500 Diastolic blood pressure 95 mm[Hg] Stephon Benavides MD Work Phone: [facility] 08-13-2024 12:44-0500 Heart rate 125 /min Stephon Benavides MD Work Phone: [facility] 08-13-2024 12:44-0500 Respiratory rate 16 /min Stephon Benavides MD Work Phone: [facility] 08-13-2024 12:44-0500 Systolic blood pressure 132 mm[Hg] Stephon Benavides MD Work Phone: [facility] 06-29-2024 14:07-0500 Body height 188 cm Jonathan Gonzalez MD Work Phone: [facility] 06-29-2024 14:07-0500 Body mass index (BMI) [Ratio] 43.65 kg/m2 Jonathan Gonzalez MD Work Phone: [facility] 06-29-2024 14:07-0500 Body temperature 97.81 [degF] Jonathan Gonzalez MD Work Phone: [facility] 06-29-2024 14:07-0500 Body weight 154.22 kg Jonathan Gonzalez MD Work Phone: [facility] 06-29-2024 14:07-0500 Diastolic blood pressure 94 mm[Hg] Jonathan Gonzalez MD Work Phone: [facility] 06-29-2024 14:07-0500 Heart rate 91 /min Jonathan Gonzalez MD Work Phone: [facility] 06-29-2024 14:07-0500 Respiratory rate 18 /min Jonathan Gonzalez MD Work Phone: [facility] 06-29-2024 14:07-0500 SaO2% (BldA) [Mass fraction] 97 % Jonathan Gonzalez MD Work Phone: [facility] 06-29-2024 14:07-0500 Systolic blood pressure 141 mm[Hg] Jonathan Gonzalez MD Work Phone: [facility] 05-16-2024 21:44-0500 Body temperature 98.42 [degF] NIDNOBLE LEGERA DO [facility] 05-16-2024 21:44-0500 Diastolic Blood Pressure Non-Invasive 95 mm[Hg] NIDAL CHOUJAA DO [facility] 05-16-2024 21:44-0500 Heart rate 96 /min NIDAL CHOUJAA DO [facility] 05-16-2024 21:44-0500 Respiratory rate 18 /min NIDAL CHOUJAA DO [facility] 05-16-2024 21:44-0500 Systolic Blood Pressure Non-Invasive 141 mm[Hg] NIDAL CHOUJAA DO [facility] 09-16-2023 11:05-0400 Body height 188 cm Pacc 6 Work Phone: [facility] 09-16-2023 11:05-0400 Body temperature 98.49 [degF] Pacc 6 Work Phone: [facility] 09-16-2023 11:05-0400 Body weight 162.8 kg Pacc 6 Work Phone: [facility] 09-16-2023 11:05-0400 Diastolic blood pressure 86 mm[Hg] Pacc 6 Work Phone: [facility] 09-16-2023 11:05-0400 Heart rate 101 /min Pacc 6 Work Phone: [facility] 09-16-2023 11:05-0400 SaO2% (BldA) [Mass fraction] 98 % Pacc 6 Work Phone: [facility] 09-16-2023 11:05-0400 Systolic blood pressure 143 mm[Hg] Pacc 6 Work Phone: [facility] 09-11-2023 18:11-0400 Body temperature 98.06 [degF] DAVONTE Segura [facility] 09-11-2023 18:11-0400 Diastolic Blood Pressure Non-Invasive 77 mm[Hg] DAVONTE ONEILL MD [facility] 09-11-2023 18:11-0400 Heart rate 98 /min DAVONTE Segura [facility] 09-11-2023 18:11-0400 Respiratory rate 20 /min DAVONTE Segura [facility] 09-11-2023 18:11-0400 Systolic Blood Pressure Non-Invasive 151 mm[Hg] DAVONTE ONEILL MD [facility] 08-27-2023 10:45-0400 Diastolic Blood Pressure Non-Invasive 90 mm[Hg] REYES TERESA DO [facility] 08-27-2023 10:45-0400 Heart rate 94 /min REYES TERESA DO [facility] 08-27-2023 10:45-0400 Respiratory rate 20 /min REYES TERESA DO [facility] 08-27-2023 10:45-0400 Systolic Blood Pressure Non-Invasive 123 mm[Hg] REYES TERESA DO [facility] 08-27-2023 10:35-0400 Diastolic Blood Pressure Non-Invasive 90 mm[Hg] REYES TERESA DO [facility] 08-27-2023 10:35-0400 Heart rate 98 /min REYES TERESA DO [facility] 08-27-2023 10:35-0400 Respiratory rate 15 /min REYES TERESA DO [facility] 08-27-2023 10:35-0400 Systolic Blood Pressure Non-Invasive 123 mm[Hg] REYES TERESA DO [facility] 08-27-2023 10:20-0400 Body temperature 97.7 [degF] REYES TERESA DO [facility] 08-27-2023 10:20-0400 Diastolic Blood Pressure Non-Invasive 68 mm[Hg] REYES TERESA DO [facility] 08-27-2023 10:20-0400 Heart rate 88 /min REYES TERESA DO [facility] 08-27-2023 10:20-0400 Respiratory rate 14 /min REYES TERESA DO [facility] 08-27-2023 10:20-0400 Systolic Blood Pressure Non-Invasive 113 mm[Hg] REYES TERESA DO [facility] 08-27-2023 10:15-0400 Heart rate 86 /min REYES TERESA DO [facility] 08-27-2023 10:15-0400 Respiratory Rate - Anes 13 br/min REYES TERESA DO [facility] 08-27-2023 10:10-0400 Heart rate 96 /min REYES TERESA DO [facility] 08-27-2023 10:10-0400 Respiratory Rate - Anes 15 br/min REYES TERESA DO [facility] 08-27-2023 10:05-0400 Heart rate 104 /min REYES TERESA DO [facility] 08-27-2023 10:05-0400 Respiratory Rate - Anes 30 br/min REYES TERESA DO [facility] 08-27-2023 09:46-0400 Body temperature 97.7 [degF] REYES MOORE DO [facility] 08-27-2023 09:40-0400 Body height 184.5 cm REYES MOORE DO [facility] 08-27-2023 09:40-0400 Body temperature 97.7 [degF] REYES MOORE DO [facility] 08-27-2023 09:40-0400 Body weight 143.1 kg REYES MOORE DO [facility] 08-27-2023 09:40-0400 Body weight 42.04 kg/m2 REYES MOORE DO [facility] 08-06-2023 09:01-0500 Body height 188 cm Vicki Meraz APRN.BERT [facility] Work Phone: [facility] 08-06-2023 09:01-0500 Body weight 158.76 kg Vicki Meraz APRN.PUBLIC RELATIONS ANALYST, [facility] Work Phone: [facility] 08-06-2023 09:01-0500 Diastolic blood pressure 101 mm[Hg] Vicki Meraz APRN.CNP [facility] Work Phone: [facility] 08-06-2023 09:01-0500 Heart rate 107 /min Vicki Meraz APRN.CNP [facility] Work Phone: [facility] 08-06-2023 09:01-0500 SaO2% (BldA) [Mass fraction] 98 % Vicki Meraz APRN.PUBLIC RELATIONS ANALYST, [facility] Work Phone: [facility] 08-06-2023 09:01-0500 Systolic blood pressure 153 mm[Hg] Vicki Meraz APRN.CNP [facility] Work Phone: [facility] 07-04-2023 00:20-0500 Body temperature 98.1 [degF] No Primary Care Physician [facility] 07-04-2023 00:20-0500 Diastolic blood pressure 89 mm[Hg] No Primary Care Physician [facility] 07-04-2023 00:20-0500 Heart rate 98 /min No Primary Care Physician [facility] 07-04-2023 00:20-0500 Respiratory rate 16 /min No Primary Care Physician [facility] 07-04-2023 00:20-0500 SaO2% (BldA) [Mass fraction] 96 % No Primary Care Physician [facility] 07-04-2023 00:20-0500 Systolic blood pressure 143 mm[Hg] No Primary Care Physician [facility] 07-03-2023 22:57-0500 Body height 187.96 cm No Primary Care Physician [facility] 07-03-2023 22:57-0500 Body mass index (BMI) [Ratio] 45.6 kg/m2 No Primary Care Physician [facility] 07-03-2023 22:57-0500 Body weight 161.28 kg No Primary Care Physician [facility] 06-28-2023 16:27-0500 Diastolic Blood Pressure Non-Invasive 93 mm[Hg] DR LEDY REESE MD [facility] 06-28-2023 16:27-0500 Heart rate 92 /min DR LEDY REESE MD [facility] 06-28-2023 16:27-0500 Respiratory rate 18 /min DR LEDY REESE MD [facility] 06-28-2023 16:27-0500 Systolic Blood Pressure Non-Invasive 133 mm[Hg] DR LEDY REESE MD [facility] 06-28-2023 14:04-0500 Blood Pressure Cuff Size DR LEDY REESE MD [facility] 06-28-2023 14:04-[address] LEDY REESE MD [facility] 06-28-2023 14:04-[address] LEDY REESE MD [facility] 06-28-2023 14:04-0500 Body height [address] LEDY REESE MD [facility] 06-28-2023 14:04-0500 Body temperature 97.7 [degF] DR LEDY REESE MD [facility] 06-28-2023 14:04-0500 Body weight 136.[address] LEDY REESE MD [facility] 06-28-2023 14:04-0500 Diastolic Blood Pressure Non-Invasive 89 mm[Hg] DR LEDY REESE MD [facility] 06-28-2023 14:04-0500 Heart rate 108 /min DR LEDY REESE MD [facility] 06-28-2023 14:04-0500 Respiratory rate 22 /min DR LEDY REESE MD [facility] 06-28-2023 14:04-0500 Systolic Blood Pressure Non-Invasive 141 mm[Hg] DR LEDY REESE MD [facility] 06-12-2023 09:46-0500 Body mass index (BMI) [Ratio] 44.5 kg/m2 No Primary Care Physician [facility] 06-12-2023 09:46-0500 Body temperature 97.1 [degF] No Primary Care Physician [facility] 06-12-2023 09:46-0500 Body weight 157.39 kg No Primary Care Physician [facility] 06-12-2023 09:46-0500 Diastolic blood pressure 91 mm[Hg] No Primary Care Physician [facility] 06-12-2023 09:46-0500 Heart rate 79 /min No Primary Care Physician [facility] 06-12-2023 09:46-0500 Respiratory rate 18 /min No Primary Care Physician [facility] 06-12-2023 09:46-0500 SaO2% (BldA) [Mass fraction] 100 % No Primary Care Physician [facility] 06-12-2023 09:46-0500 Systolic blood pressure 130 mm[Hg] No Primary Care Physician [facility] 06-08-2023 19:34-0500 Diastolic Blood Pressure Non-Invasive 85 mm[Hg] DR PAUL DOBSON DO [facility] 06-08-2023 19:34-0500 Heart rate 87 /min DR PAUL DOBSON DO [facility] 06-08-2023 19:34-0500 Respiratory rate 18 /min DR PAUL DOBSON DO [facility] 06-08-2023 19:34-0500 Systolic Blood Pressure Non-Invasive 146 mm[Hg] DR PAUL DOBSON DO [facility] 06-08-2023 17:51-0500 Blood Pressure Cuff Size DR PAUL DOBSON DO [facility] 06-08-2023 17:51-[address] PAUL DOBSON DO [facility] 06-08-2023 17:51-[address] PAUL DOBSON DO [facility] 06-08-2023 17:51-0500 Body temperature 98.78 [degF] DR PAUL DOBSON DO [facility] 06-08-2023 17:51-0500 Diastolic Blood Pressure Non-Invasive 80 mm[Hg] DR PAUL DOBSON DO [facility] 06-08-2023 17:51-0500 Heart rate 96 /min DR PAUL DOBSON DO [facility] 06-08-2023 17:51-0500 Respiratory rate 18 /min DR PAUL DOBSON DO [facility] 06-08-2023 17:51-0500 Systolic Blood Pressure Non-Invasive 113 mm[Hg] DR PAUL DOBSON DO [facility] 06-01-2023 01:12-0500 Body height 185.42 cm [facility] 06-01-2023 01:12-0500 Body mass index (BMI) [Ratio] 46.3 kg/m2 [facility] 06-01-2023 01:12-0500 Body temperature 98.4 [degF] [facility] 06-01-2023 01:12-0500 Body weight 159.4 kg [facility] 06-01-2023 01:12-0500 Diastolic blood pressure 96 mm[Hg] [facility] 06-01-2023 01:12-0500 Heart rate 96 /min [facility] 06-01-2023 01:12-0500 Respiratory rate 20 /min [facility] 06-01-2023 01:12-0500 SaO2% (BldA) [Mass fraction] 99 % [facility] 06-01-2023 01:12-0500 Systolic blood pressure 157 mm[Hg] [facility] 05-16-2023 22:40-0500 Diastolic Blood Pressure Non-Invasive 80 mm[Hg] TOI REICHFIELD DO [facility] 05-16-2023 22:40-0500 Heart rate 94 /min TOI REICHFIELD DO [facility] 05-16-2023 22:40-0500 Respiratory rate 18 /min TOI REICHFIELD DO [facility] 05-16-2023 22:40-0500 Systolic Blood Pressure Non-Invasive 132 mm[Hg] TOI REICHFIELD DO [facility] 05-16-2023 21:30-0500 Heart rate 98 /min TOI REICHFIELD DO [facility] 05-16-2023 21:30-0500 Respiratory rate 16 /min TOI REICHFIELD DO [facility] 05-16-2023 21:20-0500 Reason For Taking VItal Signs TOI REICHFIELD DO [facility] 05-16-2023 20:06-0500 Body height 188 cm TOI REICHFIELD DO [facility] 05-16-2023 20:06-0500 Body temperature 98.42 [degF] TOI REICHFIELD DO [facility] 05-16-2023 20:06-0500 Body weight 134.1 kg TOI REICHFIELD DO [facility] 05-16-2023 20:06-0500 Diastolic Blood Pressure Non-Invasive 85 mm[Hg] TOI REICHFIELD DO [facility] 05-16-2023 20:06-0500 Heart rate 98 /min TOI REICHFIELD DO [facility] 05-16-2023 20:06-0500 Respiratory rate 18 /min TOI REICHFIELD DO [facility] 05-16-2023 20:06-0500 Systolic Blood Pressure Non-Invasive 138 mm[Hg] TOI REICHFIELD DO [facility] 02-12-2023 20:36-0400 Diastolic Blood Pressure Non-Invasive 90 1 TOI REICHFIELD DO [facility] 02-12-2023 20:36-0400 Heart rate 77 /min TOI REICHFIELD DO [facility] 02-12-2023 20:36-0400 Reason For Taking VItal Signs TOI REICHFIELD DO [facility] 02-12-2023 20:36-0400 Respiratory rate 20 /min TOI REICHFIELD DO [facility] 02-12-2023 20:36-0400 Systolic Blood Pressure Non-Invasive 130 1 TOI REICHFIELD DO [facility] 02-12-2023 19:10-0400 Diastolic Blood Pressure Non-Invasive 92 1 TOI REICHFIELD DO [facility] 02-12-2023 19:10-0400 Heart rate 75 /min TOI REICHFIELD DO [facility] 02-12-2023 19:10-0400 Reason For Taking VItal Signs TOI REICHFIELD DO [facility] 02-12-2023 19:10-0400 Respiratory rate 18 /min TOI REICHFIELD DO [facility] 02-12-2023 19:10-0400 Systolic Blood Pressure Non-Invasive 129 1 TOI REICHFIELD DO [facility] 02-12-2023 18:15-0400 Diastolic Blood Pressure Non-Invasive 88 1 TOI REICHFIELD DO [facility] 02-12-2023 18:15-0400 Heart rate 88 /min TOI REICHFIELD DO [facility] 02-12-2023 18:15-0400 Reason For Taking VItal Signs TOI MARMOLEJO DO [facility] 02-12-2023 18:15-0400 Respiratory rate 20 /min TOI MARMOLEJO DO [facility] 02-12-2023 18:15-0400 Systolic Blood Pressure Non-Invasive 137 1 [facility] 02-12-2023 17:24-0400 Body temperature 98.24 [degF] [facility] DO [facility] 02-12-2023 17:24-0400 Body weight 149.9 kg [facility]I [facility] DO [facility] 02-12-2023 17:24-0400 Heart rate 100 /min [facility] EDAN [facility] 10-28-2022 11:57-0400 Blood Pressure Cuff Size ROSHNI SCHWARZENTRAUB PA-C [facility] 10-28-2022 11:57-0400 Blood Pressure Location ROSHNI SCHWARZENTRAUB PA-C [facility] 10-28-2022 11:57-0400 Blood Pressure Method ROSHNI SCHWARZENTRAUB PA-C [facility] 10-28-2022 11:57-0400 Body height 188 cm ROSHNI SCHWARZENTRA UB PA-C [facility] 10-28-2022 11:57-0400 Body temperature 97.88 [degF] ROSHNI SCHWARZENTRA UB PA-C [facility] 10-28-2022 11:57-0400 Body weight 134.1 kg ROSHNI SCHWARZENTRA UB PA-C [facility] 10-28-2022 11:57-0400 Body weight 37.94 kg/m2 ROSHNI [employer] PA-C [facility] 10-28-2022 11:57-0400 Diastolic Blood Pressure Non-Invasive 87 1 ROSHNI SCHWARZENTRAUB PA-C [facility] 10-28-2022 11:57-0400 Heart rate 111 /min ROSHNI [employer] PA-C [facility] 10-28-2022 11:57-0400 Respiratory rate 18 /min VISALIA [employer] PA-C [facility] 10-28-2022 11:57-0400 Systolic Blood Pressure Non-Invasive 132 1 ROSHNI [employer] PA-C [facility] 10-28-2022 01:45-0400 Body temperature 98.96 [degF] YARA HENSON MD [facility] 10-28-2022 01:45-0400 Diastolic Blood Pressure Non-Invasive 96 1 YARA HENSON MD [facility] 10-28-2022 01:45-0400 Heart rate 98 /min YARA HENSON MD [facility] 10-28-2022 01:45-0400 Respiratory rate 20 /min YARA HENSON MD [facility] 10-28-2022 01:45-0400 Systolic Blood Pressure Non-Invasive 143 1 YARA HENSON MD [facility] 10-21-2022 08:44-0400 Blood Pressure Cuff Size AVANI [employer]-PUBLIC RELATIONS ANALYST [facility] 10-21-2022 08:44-0400 Blood Pressure Location AVANI [employer] MINER-PUBLIC RELATIONS ANALYST [facility] 10-21-2022 08:44-0400 Blood Pressure Method AVANI [employer] MINER-PUBLIC RELATIONS ANALYST [facility] 10-21-2022 08:44-0400 Body height 188 cm AVANI [employer] MINER-PUBLIC RELATIONS ANALYST [facility] 10-21-2022 08:44-0400 Body temperature 98.42 [degF] AVANI [employer] MINER-PUBLIC RELATIONS ANALYST [facility] 10-21-2022 08:44-0400 Body weight 134.1 kg AVANI CANTOR APRN-PUBLIC RELATIONS ANALYST [facility] 10-21-2022 08:44-0400 Body weight 37.94 kg/m2 AVANI [employer] MINER-PUBLIC RELATIONS ANALYST [facility] 10-21-2022 08:44-0400 Diastolic Blood Pressure Non-Invasive 93 1 AVANI CANTOR APRN-PUBLIC RELATIONS ANALYST [facility] 10-21-2022 08:44-0400 Heart rate 88 /min AVANI CANTOR APRN-PUBLIC RELATIONS ANALYST [facility] 10-21-2022 08:44-0400 Respiratory rate 18 /min AVANI CANTOR APRN-PUBLIC RELATIONS ANALYST [facility] 10-21-2022 08:44-0400 Systolic Blood Pressure Non-Invasive 152 1 AVANI [employer] MINER-PUBLIC RELATIONS ANALYST [facility] 09-12-2022 13:08-0400 Body height 188 cm [employer] PA-C [facility] 09-12-2022 13:08-0400 Body temperature 98.06 [degF] [employer] PA-C [facility] 09-12-2022 13:08-0400 Body weight 131.8 kg [employer] PA-C [facility] 09-12-2022 13:08-0400 Body weight 37.29 kg/m2 ROSHNI [employer] PA-C [facility] 09-12-2022 13:08-0400 Diastolic Blood Pressure Non-Invasive 95 1 ROSHNI PLUQUB PA-C [facility] 09-12-2022 13:08-0400 Heart rate 90 /min VISALIA PLUQ UB PA-C [facility] 09-12-2022 13:08-0400 Respiratory rate 18 /min VISALIA PLUQ UB PA-C [facility] 09-12-2022 13:08-0400 Systolic Blood Pressure Non-Invasive 148 1 VISALIA PLUQUB PA-C [facility] 09-05-2022 10:00-0400 Blood Pressure Cuff Size AVANI KEMIERS [employer] MINER-PUBLIC RELATIONS ANALYST [facility] 09-05-2022 10:00-0400 Blood Pressure Location AVANI BATERS [employer] MINER-PUBLIC RELATIONS ANALYST [facility] 09-05-2022 10:00-0400 Blood Pressure Method AVANI KEMIERS [employer] MINER-PUBLIC RELATIONS ANALYST [facility] 09-05-2022 10:00-0400 Body height 188 cm AVANI BATERS [employer] MINER-PUBLIC RELATIONS ANALYST [facility] 09-05-2022 10:00-0400 Body temperature 98.6 [degF] AVANI EKMIERS [employer] MINER-PUBLIC RELATIONS ANALYST [facility] 09-05-2022 10:00-0400 Body weight 135 kg AVANI KEMIERS [employer] MINER-PUBLIC RELATIONS ANALYST [facility] 09-05-2022 10:00-0400 Body weight 38.2 kg/m2 AVANI BATERS [employer] MINER-PUBLIC RELATIONS ANALYST [facility] 09-05-2022 10:00-0400 Diastolic Blood Pressure Non-Invasive 91 1 AVANI C[employer] MINER-PUBLIC RELATIONS ANALYST [facility] 09-05-2022 10:00-0400 Heart rate 88 /min AVANI C[employer] MINER-PUBLIC RELATIONS ANALYST [facility] 09-05-2022 10:00-0400 Respiratory rate 18 /min AVANI C[employer] MINER-PUBLIC RELATIONS ANALYST [facility] 09-05-2022 10:00-0400 Systolic Blood Pressure Non-Invasive 119 1 AVANI C[employer]OR [employer] MINER-PUBLIC RELATIONS ANALYST [facility] 08-28-2022 21:45-0400 Diastolic Blood Pressure Non-Invasive 84 1 ANJEL FRIAST DO [facility] 08-28-2022 21:45-0400 Heart rate 86 /min ANJEL FRIAST DO [facility] 08-28-2022 21:45-0400 Respiratory rate 18 /min ANJEL FRIAST DO [facility] 08-28-2022 21:45-0400 Systolic Blood Pressure Non-Invasive 136 1 ANJEL FRIAST DO [facility] 08-28-2022 19:06-0400 Body temperature 97.88 [degF] ANJEL TIMMELT DO [facility] 08-28-2022 19:06-0400 Body weight 136.4 kg ANJEL FROMMELT DO [facility] 08-28-2022 19:06-0400 Diastolic Blood Pressure Non-Invasive 84 1 ANJEL FRIAST DO [facility] 08-28-2022 19:06-0400 Heart rate 100 /min ANJEL Spoke [facility] 08-28-2022 19:06-0400 Respiratory rate 20 /min ANJEL [employer] [facility] 08-28-2022 19:06-0400 Systolic Blood Pressure Non-Invasive 141 1 ANJEL Spoke [facility] 08-18-2022 15:50-0500 Diastolic Blood Pressure Non-Invasive 80 1 ANJEL Spoke [facility] 08-18-2022 15:50-0500 Heart rate 81 /min ANJEL Spoke [facility] 08-18-2022 15:50-0500 Reason For Taking VItal Signs ANJEL Spoke [facility] 08-18-2022 15:50-0500 Respiratory rate 16 /min ANJEL Spoke [facility] 08-18-2022 15:50-0500 Systolic Blood Pressure Non-Invasive 142 1 ANJEL Spoke [facility] 08-18-2022 14:01-0500 Diastolic Blood Pressure Non-Invasive 89 1 ANJEL Spoke [facility] 08-18-2022 14:01-0500 Systolic Blood Pressure Non-Invasive 142 1 ANJEL Spoke [facility] 08-18-2022 13:55-0500 Body temperature 97.88 [degF] ANJEL Spoke [facility] 08-18-2022 13:55-0500 Diastolic Blood Pressure Non-Invasive 86 1 ANJEL Spoke [facility] 08-18-2022 13:55-0500 Heart rate 87 /min ANJEL Spoke [facility] 08-18-2022 13:55-0500 Respiratory rate 12 /min ANJEL [employer] [facility] 08-18-2022 13:55-0500 Systolic Blood Pressure Non-Invasive 161 1 ANJEL [employer] [facility] 08-18-2022 11:32-0500 Body temperature 98.42 [degF] ANJEL [employer] [facility] 08-18-2022 11:32-0500 Body weight 153.5 kg ANJEL [employer] [facility] 08-18-2022 11:32-0500 Heart rate 96 /min ANJEL [employer] [facility] 08-18-2022 11:32-0500 Respiratory rate 18 /min ANJEL [employer] [facility] 07-22-2022 13:54-0500 Diastolic Blood Pressure Non-Invasive 83 1 BLANCO SHAW MD [facility] 07-22-2022 13:54-0500 Heart rate 86 /min BLANCO SHAW MD [facility] 07-22-2022 13:54-0500 Respiratory rate 16 /min BLANCO SHAW MD [facility] 07-22-2022 13:54-0500 Systolic Blood Pressure Non-Invasive 135 1 BLNACO SHAW MD [facility] 07-22-2022 12:30-0500 Diastolic Blood Pressure Non-Invasive 89 1 BLANCO SHAW MD [facility] 07-22-2022 12:30-0500 Heart rate 91 /min BLANCO SHAW MD [facility] 07-22-2022 12:30-0500 Respiratory rate 16 /min BLANCO SHAW MD [facility] 07-22-2022 12:30-0500 Systolic Blood Pressure Non-Invasive 136 1 BLANCO SHAW MD [facility] 07-22-2022 11:30-0500 Diastolic Blood Pressure Non-Invasive 84 1 BLANCO SHAW MD [facility] 07-22-2022 11:30-0500 Heart rate 100 /min BLANCO SHAW MD [facility] 07-22-2022 11:30-0500 Respiratory rate 20 /min BLANCO SHAW MD [facility] 07-22-2022 11:30-0500 Systolic Blood Pressure Non-Invasive 142 1 BLANCO SHAW MD [facility] 07-22-2022 10:12-0500 Body height 188 cm BLANCO SHAW MD [facility] 07-22-2022 10:12-0500 Body temperature 98.96 [degF] BLANCO SHAW MD [facility] 07-22-2022 10:12-0500 Body weight 132 kg BLANCO SHAW MD [facility] 07-18-2022 14:20-0500 Diastolic Blood Pressure Non-Invasive 95 1 AARON DUQUE MD [facility] 07-18-2022 14:20-0500 Heart rate 99 /min AARON DUQUE MD [facility] 07-18-2022 14:20-0500 Respiratory rate 16 /min AARON DUQUE MD [facility] 07-18-2022 14:20-0500 Systolic Blood Pressure Non-Invasive 130 1 AARON DUQUE MD [facility] 07-18-2022 13:50-0500 Diastolic Blood Pressure Non-Invasive 88 1 AARON DUQUE MD [facility] 07-18-2022 13:50-0500 Heart rate 105 /min AARON DUQUE MD [facility] 07-18-2022 13:50-0500 Respiratory rate 16 /min AAORN DUQUE MD [facility] 07-18-2022 13:50-0500 Systolic Blood Pressure Non-Invasive 137 1 AARON DUQUE MD [facility] 07-18-2022 13:20-0500 Diastolic Blood Pressure Non-Invasive 77 1 AARON DUQUE MD [facility] 07-18-2022 13:20-0500 Heart rate 104 /min AARON DUQUE MD [facility] 07-18-2022 13:20-0500 Respiratory rate 16 /min AARON DUQUE MD [facility] 07-18-2022 13:20-0500 Systolic Blood Pressure Non-Invasive 144 1 AARON DUQUE MD [facility] 07-18-2022 13:15-0500 Heart rate 99 /min AARON DUQUE MD [facility] 07-18-2022 13:00-0500 Heart rate 102 /min AARON DUQUE MD [facility] 07-18-2022 11:28-0500 Body temperature 97.88 [degF] AARON DUQUE MD [facility] 07-18-2022 11:25-0500 Respiratory Rate - Anes 0 br/min AARON DUQUE MD [facility] 07-18-2022 11:20-0500 Respiratory Rate - Anes 0 br/min AARON DUQUE MD [facility] 07-18-2022 11:15-0500 Respiratory Rate - Anes 10 br/min AARON DUQUE MD [facility] 07-18-2022 06:48-0500 Body height 188 cm AARON DUQUE MD [facility] 07-18-2022 06:48-0500 Body temperature 98.96 [degF] AARON DUQUE MD [facility] 07-18-2022 06:48-0500 Body weight 134 kg AARON DUQUE MD [facility] 07-18-2022 06:48-0500 Heart rate 99 /min AARON DUQUE MD [facility] 07-15-2022 01:50-0500 Diastolic Blood Pressure Non-Invasive 79 1 DAVONTE ONEILL MD [facility] 07-15-2022 01:50-0500 Heart rate 93 /min DAVONTE Segura [facility] 07-15-2022 01:50-0500 Respiratory rate 15 /min DAVONTE Segura [facility] 07-15-2022 01:50-0500 Systolic Blood Pressure Non-Invasive 124 1 DAVONTE ONEILL MD [facility] 07-15-2022 00:30-0500 Body temperature 97.88 [degF] DAVONTE Segura [facility] 07-15-2022 00:30-0500 Diastolic Blood Pressure Non-Invasive 91 1 DAVONTE ONEILL MD [facility] 07-15-2022 00:30-0500 Heart rate 101 /min DAVONTE Segura [facility] 07-15-2022 00:30-0500 Respiratory rate 18 /min DAVONTE Beaver D [facility] 07-15-2022 00:30-0500 Systolic Blood Pressure Non-Invasive 152 1 DAVONTE ONEILL MD [facility] 07-09-2022 13:12-0500 Blood Pressure Cuff Size AARON DUQUE MD [facility] 07-09-2022 13:12-0500 Blood Pressure Location AARON DUQUE MD [facility] 07-09-2022 13:12-0500 Blood Pressure Method AARON DUQUE MD [facility] 07-09-2022 13:12-0500 Body height 188 cm AARON DUQUE MD [facility] 07-09-2022 13:12-0500 Body weight 134.1 kg AARON DUQUE MD [facility] 07-09-2022 13:12-0500 Body weight 37.94 kg/m2 AARON DUQUE MD [facility] 07-09-2022 13:12-0500 Diastolic Blood Pressure Non-Invasive 82 1 AARON DUQUE MD [facility] 07-09-2022 13:12-0500 Heart rate 91 /min AARON DUQUE MD [facility] 07-09-2022 13:12-0500 Systolic Blood Pressure Non-Invasive 122 1 AARON DUQUE MD [facility] 06-27-2022 23:59-0500 Diastolic Blood Pressure Non-Invasive 75 1 YARA HENSON MD [facility] 06-27-2022 23:59-0500 Heart rate 85 /min YARA HENSON MD [facility] 06-27-2022 23:59-0500 Reason For Taking VItal Signs YARA HENSON MD [facility] 06-27-2022 23:59-0500 Respiratory rate 18 /min YARA HENSON MD [facility] 06-27-2022 23:59-0500 Systolic Blood Pressure Non-Invasive 130 1 YARA HENSON MD [facility] 06-27-2022 21:38-0500 Body temperature 97.52 [degF] YARA HENSON MD [facility] 06-27-2022 21:38-0500 Diastolic Blood Pressure Non-Invasive 100 1 YARA HENSON MD [facility] 06-27-2022 21:38-0500 Heart rate 105 /min YARA HENSON MD [facility] 06-27-2022 21:38-0500 Respiratory rate 24 /min YARA HENSON MD [facility] 06-27-2022 21:38-0500 Systolic Blood Pressure Non-Invasive 157 1 YARA HENSON MD [facility] 06-19-2022 19:36-0500 Body temperature 99.1 [degF] [facility] 06-19-2022 19:36-0500 Diastolic blood pressure 87 mm[Hg] [facility] 06-19-2022 19:36-0500 Heart rate 110 /min [facility] 06-19-2022 19:36-0500 Respiratory rate 18 /min [facility] 06-19-2022 19:36-0500 SaO2% (BldA) [Mass fraction] 96 % [facility] 06-19-2022 19:36-0500 Systolic blood pressure 126 mm[Hg] [facility] 06-01-2022 00:00-0500 Diastolic Blood Pressure Non-Invasive 88 1 YARA HENSON MD [facility] 06-01-2022 00:00-0500 Heart rate 85 /min YARA HENSON MD [facility] 06-01-2022 00:00-0500 Respiratory rate 16 /min YARA HENSON MD [facility] 06-01-2022 00:00-0500 Systolic Blood Pressure Non-Invasive 125 1 YARA HENSON MD [facility] 05-31-2022 21:41-0500 Body height 190.5 cm YARA HENSON MD [facility] 05-31-2022 21:41-0500 Body temperature 97.88 [degF] YARA HENSON MD [facility] 05-31-2022 21:41-0500 Body weight 127.3 kg YARA HENSON MD [facility] 05-31-2022 21:41-0500 Diastolic Blood Pressure Non-Invasive 89 1 YARA HENSON MD [facility] 05-31-2022 21:41-0500 Heart rate 90 /min YARA HENSON MD [facility] 05-31-2022 21:41-0500 Respiratory rate 18 /min YARA HENSON MD [facility] 05-31-2022 21:41-0500 Systolic Blood Pressure Non-Invasive 127 1 YARA HENSON MD [facility] 05-27-2022 18:03-0500 Body height 180.[address] ABDI AGUIRRE MD [facility] 05-27-2022 18:03-0500 Body temperature 98.96 [degF] DR ABDI AGUIRRE MD [facility] 05-27-2022 18:03-0500 Body weight 127.[address] ABDI AGUIRRE MD [facility] 05-27-2022 18:03-0500 Diastolic Blood Pressure Non-Invasive [address] ABDI AGUIRRE MD [facility] 05-27-2022 18:03-0500 Heart rate 118 /min DR ABDI AGUIRRE MD [facility] 05-27-2022 18:03-0500 Respiratory rate 20 /min DR ABDI AGUIRRE MD [facility] 05-27-2022 18:03-0500 Systolic Blood Pressure Non-Invasive [address] ABDI AGUIRRE MD [facility] 04-25-2022 17:56-0500 Diastolic blood pressure 98 mm[Hg] [facility] 04-25-2022 17:56-0500 Heart rate 90 /min [facility] 04-25-2022 17:56-0500 Respiratory rate 18 /min [facility] 04-25-2022 17:56-0500 SaO2% (BldA) [Mass fraction] 100 % [facility] 04-25-2022 17:56-0500 Systolic blood pressure 156 mm[Hg] [facility] 04-25-2022 15:04-0500 Body height 188 cm [facility] 04-25-2022 15:04-0500 Body mass index (BMI) [Ratio] 34.67 kg/m2 [facility] 04-25-2022 15:04-0500 Body temperature 97.11 [degF] [facility] 04-25-2022 15:04-0500 Body weight 122.47 kg [facility] 04-03-2022 14:31-0400 Diastolic blood pressure 90 mm[Hg] Pcp No [facility] 04-03-2022 14:31-0400 Heart rate 100 /min Pcp No [facility] 04-03-2022 14:31-0400 Respiratory rate 16 /min Pcp No [facility] 04-03-2022 14:31-0400 SaO2% (BldA) [Mass fraction] 100 % Pcp No [facility] 04-03-2022 14:31-0400 Systolic blood pressure 140 mm[Hg] Pcp No [facility] 04-03-2022 14:14-0400 Body temperature 98.2 [degF] Pcp No [facility] 03-15-2022 00:52-0400 Diastolic blood pressure 75 mm[Hg] JORGITO CANNON DO [facility] 03-15-2022 00:52-0400 Heart rate 97 /min JORGITO CANNON DO [facility] 03-15-2022 00:52-0400 Respiratory rate 16 /min JORGITO CANNON DO [facility] 03-15-2022 00:52-0400 Systolic blood pressure 121 mm[Hg] JORGITO CANNON DO [facility] 03-14-2022 22:56-0400 Body temperature 98.24 [degF] JORGITO CANNON DO [facility] 03-14-2022 22:56-0400 Diastolic blood pressure 81 mm[Hg] JORGITO CANNON DO [facility] 03-14-2022 22:56-0400 Heart rate 107 /min JORGITO CANNON DO [facility] 03-14-2022 22:56-0400 Respiratory rate 18 /min JORGITO CANNON DO [facility] 03-14-2022 22:56-0400 Systolic blood pressure 119 mm[Hg] JORGITO CANNON DO [facility] 03-08-2022 00:57-0400 Body temperature 98.29 [degF] Joseluis Darrion DO Work Phone: [facility] 03-08-2022 00:57-0400 Diastolic blood pressure 89 mm[Hg] Joseluis Darrion DO Work Phone: [facility] 03-08-2022 00:57-0400 Heart rate 100 /min Joseluis Darrion DO Work Phone: [facility] 03-08-2022 00:57-0400 Respiratory rate 18 /min Joseluis Darrion DO Work Phone: [facility] 03-08-2022 00:57-0400 SaO2% (BldA) [Mass fraction] 98 % Joseluis Darrion DO Work Phone: [facility] 03-08-2022 00:57-0400 Systolic blood pressure 134 mm[Hg] Joseluis Darrion DO Work Phone: [facility] 01-03-2022 09:42-0400 Body height 185.4 cm Ibrahima Schaefer MD Work Phone: [facility] 01-03-2022 09:42-0400 Body temperature 98.29 [degF] Ibrahima Schaefer MD Work Phone: [facility] 01-03-2022 09:42-0400 Body weight 144.7 kg Ibrahima Schaefer MD Work Phone: [facility] 01-03-2022 09:42-0400 Diastolic blood pressure 76 mm[Hg] Ibrahima Schaefer MD Work Phone: [facility] 01-03-2022 09:42-0400 Heart rate 102 /min Ibrahima Schaefer MD Work Phone: [facility] 01-03-2022 09:42-0400 Respiratory rate 18 /min Ibrahima Schaefer MD Work Phone: [facility] 01-03-2022 09:42-0400 SaO2% (BldA) [Mass fraction] 97 % Ibrahima Schaefer MD Work Phone: [facility] 01-03-2022 09:42-0400 Systolic blood pressure 124 mm[Hg] Ibrahima Schaefer MD Work Phone: [facility] 01-01-2022 20:51-0400 Diastolic blood pressure 86 mm[Hg] [facility] Work Phone: 01-01-2022 20:51-0400 Heart rate 83 /min [facility] Work Phone: 01-01-2022 20:51-0400 Respiratory rate 18 /min [facility] Work Phone: 01-01-2022 20:51-0400 SaO2% (BldA) [Mass fraction] 100 % [facility] Work Phone: 01-01-2022 20:51-0400 Systolic blood pressure 133 mm[Hg] [facility] Work Phone: 01-01-2022 17:58-0400 Body height 185.42 cm [facility] Work Phone: 01-01-2022 17:58-0400 Body mass index (BMI) [Ratio] 42.1 kg/m2 [facility] Work Phone: 01-01-2022 17:58-0400 Body temperature 98.1 [degF] [facility] Work Phone: 01-01-2022 17:58-0400 Body weight 145 kg [facility] Work Phone: 12-21-2021 22:34-0400 Diastolic blood pressure 83 mm[Hg] ANJEL FROMMELT DO [facility] 12-21-2021 22:34-0400 Heart rate 77 /min ANJEL FROMMELT DO [facility] 12-21-2021 22:34-0400 Reason For Taking VItal Signs ANJEL FROMMELT DO [facility] 12-21-2021 22:34-0400 Respiratory rate 20 /min ANJEL FROMMELT DO [facility] 12-21-2021 22:34-0400 Systolic blood pressure 138 mm[Hg] ANJEL FROMMELT DO [facility] 12-21-2021 21:27-0400 Diastolic blood pressure 93 mm[Hg] ANJEL FROMMELT DO [facility] 12-21-2021 21:27-0400 Heart rate 87 /min ANJEL FROMMELT DO [facility] 12-21-2021 21:27-0400 Reason For Taking VItal Signs ANJEL FROMMELT DO [facility] 12-21-2021 21:27-0400 Respiratory rate 20 /min ANJEL FROMMELT DO [facility] 12-21-2021 21:27-0400 Systolic blood pressure 144 mm[Hg] ANJEL FRIAST DO [facility] 12-21-2021 20:43-0400 Body temperature 99.14 [degF] ANJEL FRIAST DO [facility] 12-21-2021 20:43-0400 Diastolic blood pressure 89 mm[Hg] ANJEL FRIAST DO [facility] 12-21-2021 20:43-0400 Heart rate 96 /min ANJEL FRIAST DO [facility] 12-21-2021 20:43-0400 Respiratory rate 22 /min ANJEL FRIAST DO [facility] 12-21-2021 20:43-0400 Systolic blood pressure 172 mm[Hg] ANJEL FRIAST DO [facility] 11-30-2021 20:30-0400 Diastolic blood pressure 82 mm[Hg] YARA HENSON MD [facility] 11-30-2021 20:30-0400 Heart rate 78 /min YARA HENSON MD [facility] 11-30-2021 20:30-0400 Mean blood pressure 101 mm[Hg] YARA HENSON MD [facility] 11-30-2021 20:30-0400 Respiratory rate 18 /min YARA HENSON MD [facility] 11-30-2021 20:30-0400 Systolic blood pressure 140 mm[Hg] YARA HENSON MD [facility] 11-30-2021 19:12-0400 Body temperature 98.06 [degF] YARA HENSON MD [facility] 11-30-2021 19:12-0400 Diastolic blood pressure 89 mm[Hg] YARA HENSON MD [facility] 11-30-2021 19:12-0400 Heart rate 87 /min YARA HENSON MD [facility] 11-30-2021 19:12-0400 Respiratory rate 18 /min YARA HENSON MD [facility] 11-30-2021 19:12-0400 Systolic blood pressure 148 mm[Hg] YARA HENSON MD [facility] 11-14-2021 13:10-0400 Body height 185.4 cm AARON DUQUE MD [facility] 11-14-2021 13:10-0400 Body weight 140.9 kg AARON DUQUE MD [facility] 11-14-2021 13:10-0400 Body weight 40.99 kg/m2 AARON DUQUE MD [facility] 11-14-2021 13:10-0400 diastolic 74 mm[Hg] AARON DUQUE MD [facility] 11-14-2021 13:10-0400 Heart rate 103 /min AARON DUQUE MD [facility] 11-14-2021 13:10-0400 systolic 128 mm[Hg] AARON DUQUE MD [facility] 10-06-2021 14:52-0400 Body temperature 98.96 [degF] ASHLYN BLISS MD [facility] 10-06-2021 14:52-0400 Diastolic blood pressure 89 mm[Hg] ASHLYN BLISS MD [facility] 10-06-2021 14:52-0400 Heart rate 112 /min ASHLYN BLISS MD [facility] 10-06-2021 14:52-0400 Respiratory rate 18 /min ASHLYN BLISS MD [facility] 10-06-2021 14:52-0400 Systolic blood pressure 148 mm[Hg] ASHLYN BLISS MD [facility] Encounters Encounter Date Encounter Type Care Provider Facility Start: 05-06-2025 ambulatory Viola Starkey NP Facili ty:[facility] Start: 04-24-2025 End: 04-24-2025 Emergency department patient visit Viola Starkey NP Facility:[facility] Start: 04-17-2025 End: 04-17-2025 Emergency department patient visit Viola Starkey NP Facility:[facility] Start: 03-24-2025 End: 03-24-2025 Emergency department patient visit Guero Renitajosette DO -Emergency Department Work Phone: Start: 03-07-2025 End: 03-08-2025 Emergency department patient visit Guero Maravillajosette DO -Emergency Department Work Phone: Start: 03-02-2025 End: 03-02-2025 Emergency department patient visit VIOLA FERNANDESSEY Facility:[facility] Start: 03-01-2025 End: 03-02-2025 Emergency department patient visit BLANCO SHAW MD [facility] Start: 02-27-2025 End: 02-27-2025 Emergency department patient visit Viola Starkey INSTRUMENT PROCESSING TECH-C Work Phone: -Emergency Department Work Phone: Start: 02-17-2025 End: 02-18-2025 Emergency department patient visit Viola Starkey INSTRUMENT PROCESSING TECH-C Work Phone: -Emergency Department Work Phone: Start: 01-25-2025 End: 01-26-2025 Emergency department patient visit Viola Starkey INSTRUMENT PROCESSING TECH-C Work Phone: -Emergency Department Work Phone: Start: 12-29-2024 End: 12-29-2024 Emergency department patient visit Viola Fernandessey INSTRUMENT PROCESSING TECH-C Work Phone: -Emergency Department Work Phone: Start: 12-08-2024 End: 12-09-2024 Emergency department patient visit Dr. Cristian Tate Work Phone: -Emergency Department Work Phone: Start: 12-06-2024 End: 12-07-2024 Emergency department patient visit Dr. Cristian Tate Work Phone: -Emergency Department Work Phone: Start: 09-19-2024 End: 09-19-2024 Emergency department patient visit Dr. Cristian Guadalupe DO Work Phone: -Emergency Department Work Phone: Start: 09-08-2024 End: 09-08-2024 ambulatory VIOLA L STARKEY [employer] MINER-PUBLIC RELATIONS ANALYST Facility:[facility] Start: 09-07-2024 End: 09-08-2024 Emergency department patient visit VIOLA Siddiqi STARKEY [employer] MINER-PUBLIC RELATIONS ANALYST Facility:[facility] Start: 08-24-2024 End: 08-24-2024 Emergency department patient visit No Primary Care Physician -Emergency Department Work Phone: Start: 08-13-2024 End: 08-13-2024 Office outpatient new 45 minutes Stephon Benavides MD Work Phone: [facility] Comment on above: History of abdominal hernia Start: 06-29-2024 End: 06-29-2024 Subsequent hospital visit by physician Rad External Film EF [facility] EXTERNAL [employer] Comment on above: Arrived Start: 06-29-2024 End: 06-29-2024 Office outpatient new 45 minutes Jonathan Gonzalez MD Work Phone: [facility] Comment on above: Periumbilical abdomi nal pain (Primary Dx); History of abdominal hernia Start: 05-16-2024 End: 05-16-2024 Emergency department patient visit RADHA YI DO [facility] Start: 10-10-2023 Telephone encounter Juliocesar Borrero MD, PhD Work Phone: [facility] [place] Comment on above: Care Coordination Left lateral abdomin al pain (Primary Dx) Start: 10-07-2023 End: 10-07-2023 Evaluation and management of inpatient TRINIDAD RICHARDSON Facility:[facility] Start: 10-07-2023 Orders Only Trinidad Richardson MD Work Phone: General Surgery Comment on above: Left lower quadrant abdominal pain (Primary Dx) Start: 09-16-2023 Encounter for other preprocedural examination TRINIDAD RICHARDSON [facility] Start: 09-16-2023 End: 09-17-2023 ambulatory TRINIDAD RICHARDSON Facility:[facility] Start: 09-16-2023 Encounter for other preprocedural examination TRINIDAD RICHARDSON [facility] Start: 09-16-2023 End: 09-17-2023 ambulatory TRINIDAD RICHARDSON Facility:[facility] Start: 09-16-2023 End: 09-16-2023 PAT [facility] Work Phone: Pre Anesthesia Comment on above: Pre-op evaluation (P rimary Dx); Post traumatic seizure disorder (HCC); Morbid obesity (HCC); Tobacco use Start: 09-16-2023 End: 09-16-2023 Preprocedural examination done [facility] Work Phone: [facility] Work Phone: Start: 09-11-2023 End: 09-11-2023 Emergency department patient visit DAVONTE ONEILL MD Facility:[facility] Start: 09-11-2023 End: 09-11-2023 Emergency department patient visit DAVONTE ONEILL MD [facility] Start: 08-27-2023 End: 08-27-2023 ambulatory VIOLA STARKEY APRN-PUBLIC RELATIONS ANALYST Facility:[facility] Start: 08-27-2023 End: 08-27-2023 Minor Procedure REYES MOORE DO [facility] Start: 08-06-2023 End: 08-06-2023 ambulatory SURESH WALE Facility:[facility] Start: 08-06-2023 End: 08-06-2023 Patient encounter procedure Vicki Meraz [employer] MINER.PUBLIC RELATIONS ANALYST, DNP Work Phone: Neurology Pain Comment on above: Abdominal pain, unsp ecified abdominal location (Primary Dx) Start: 07-21-2023 ambulatory Trinidad Richardson MD Work Phone: [facility] Comment on above: 4.2324 Cure (Resect ion of Mesh 2 hours los 0) Start: 07-21-2023 Preprocedural examination done Trinidad Richardson MD Work Phone: [facility] Start: 07-18-2023 Orders Only Suresh Griffiths KIKA Work Phone: General Surgery Comment on above: Left lower quadrant abdominal pain (Primary Dx) Start: 07-07-2023 End: 07-08-2023 ambulatory TRINIDAD RICHARDSON Facility:[facility] Start: 07-03-2023 End: 07-04-2023 Emergency department patient visit No Primary Care Physician [facility]-Emergency Department Work Phone: Start: 06-28-2023 End: 06-28-2023 Emergency department patient visit DR LEDY REESE MD Facility:[facility] Start: 06-28-2023 End: 06-28-2023 Emergency department patient visit DR LEDY REESE MD [facility] Start: 06-12-2023 End: 06-12-2023 Patient encounter procedure No Primary Care Physician [facility] Work Phone: Start: 06-08-2023 End: 06-08-2023 Emergency department patient visit PAUL DOBSON Facility:B Start: 06-08-2023 End: 06-08-2023 Emergency department patient visit DR PAUL DOBSON DO [facility] Start: 06-01-2023 End: 06-01-2023 Emergency department patient visit [facility] Work Phone: Start: 05-17-2023 End: 05-18-2023 ambulatory [facility] Facility:B Start: 05-16-2023 End: 05-17-2023 Emergency department patient visit [facility] Facility:B Start: 05-16-2023 End: 05-16-2023 Emergency department patient visit [facility] Start: 02-23-2023 End: 02-23-2023 Emergency department patient visit ROC[facility] Start: 02-12-2023 End: 02-12-2023 [facility] Start: 02-12-2023 End: 02-12-2023 Emergency department patient visit [facility] Start: 10-28-2022 End: 10-29-2022 ambulatory ROSHNI FLORES PA-C Facility:A Start: 10-28-2022 End: 10-28-2022 Patient encounter procedure ROSHNI FLORES PA-C [facility] Start: 10-28-2022 End: 10-28-2022 Emergency department patient visit YARA HENSON MD Facility:B Start: 10-28-2022 End: 10-28-2022 Emergency department patient visit YARA HENSON MD [facility] Start: 10-21-2022 End: 10-22-2022 ambulatory AVANI CANTOR [employer]ATIONS ANALY[employer] Facility:A Start: 10-21-2022 End: 10-21-2022 Patient encounter procedure AVANI CANTOR [employer]ATIONS ANALYST [facility] Start: 10-20-2022 End: 10-20-2022 Emergency department patient visit DR LEDY REESE MD Facility:B Start: 09-12-2022 End: 09-12-2022 Patient encounter procedure ROSHNI PITTMANTRAUB PA-C [facility] Start: 09-05-2022 End: 09-05-2022 Patient encounter procedure AVANI KEMIERS [employer]PUBL[employer]ATIONS ANALYST [facility] Start: 08-28-2022 End: 08-28-2022 Emergency department patient visit ANJEL PEÑA DO [facility] Start: 08-18-2022 End: 08-18-2022 [facility] Start: 07-22-2022 End: 07-22-2022 Emergency department patient visit BLANCO SHAW MD [facility] Start: 07-18-2022 End: 07-18-2022 SAME DAY STAY AARON DUQUE MD [facility] Start: 07-15-2022 End: 07-15-2022 Emergency department patient visit DAVONTE ONEILL MD [facility] Start: 07-09-2022 End: 07-09-2022 Admission to establishment AARON DUQUE MD [facility] Start: 06-27-2022 End: 06-28-2022 Emergency department patient visit YARA HENSON MD [facility] Start: 06-19-2022 End: 06-20-2022 Emergency department patient visit [facility] Comment on above: Seizure (CMS/HCC) (H CC) (Primary Dx) Start: 06-09-2022 End: 06-10-2022 Emergency department patient visit PHYSICIAN [facility] Start: 06-06-2022 End: 06-06-2022 Emergency department patient visit PHYSICIAN [facility] Start: 05-31-2022 End: 06-01-2022 Emergency department patient visit YARA HENSON MD [facility] Start: 05-27-2022 End: 05-27-2022 Emergency department patient visit DR ABDI AGUIRRE MD [facility] Start: 05-22-2022 End: 05-23-2022 Emergency department patient visit PATRICK PLATA [facility] Start: 04-25-2022 End: 04-25-2022 Emergency department patient visit PCP NO [facility] Start: 04-25-2022 End: 04-25-2022 Emergency department patient visit [facility] Emergency Department Comment on above: Acute pain of right shoulder (Primary Dx); Strain of right shoulder, initial encounter Start: 04-03-2022 End: 04-03-2022 Emergency department patient visit PCP NO [facility] Start: 04-03-2022 End: 04-03-2022 Emergency department patient visit Pcp No [facility] Emergency Department Comment on above: Injury of right wris t, initial encounter (Primary Dx) Start: 03-14-2022 End: 03-15-2022 Emergency department patient visit JORGITO CANNON DO [facility] Start: 03-08-2022 End: 03-08-2022 Emergency department patient visit UNKNOWN PROVIDER [facility] Start: 03-08-2022 End: 03-08-2022 Emergency department patient visit Joseluis Maier DO Work Phone: [facility] Comment on above: Closed head injury, initial encounter (Primary Dx) Start: 01-03-2022 End: 01-03-2022 Patient encounter procedure Ibrahima Schaefer MD Work Phone: General Surgery Comment on above: Hematoma (Primary Dx ); Incisional hernia, without obstruction or gangrene Start: 01-01-2022 End: 01-01-2022 Emergency department patient visit [facility] Start: 12-21-2021 End: 12-21-2021 Emergency department patient visit ANJEL MEETAFIDEL PLATA [facility] Start: 11-30-2021 End: 11-30-2021 Emergency department patient visit YARA HENSON MD [facility] Start: 11-14-2021 End: 11-14-2021 Admission to establishment AARON DUQUE MD [facility] Start: 10-26-2021 End: 10-26-2021 Patient encounter procedure TRU TOUSSAINT [employer]PUBLIC [employer]ATIONS ANALYST [facility] Start: 10-06-2021 End: 10-06-2021 Emergency department patient visit ASHLYN BLISS MD [facility] Start: 12-23-2016 End: 12-23-2016 Emergency department patient visit MILDRED Knight ESTELLARandall Facility:[facility] Start: 12-16-2016 End: 12-16-2016 Emergency department patient visit JOSH HELTON Facility:[facility] Procedures Date Procedure Procedure Detail Performing Clinician Start: 03-07-2025 Plain chest X-ray Cat Starkey INSTRUMENT PROCESSING TECH-C Work Phone: Start: 03-07-2025 Estimated creatinine clearance Viola Starkey INSTRUMENT PROCESSING TECH-C Work Phone: Start: 03-07-2025 CT of head without contrast Viola Starkey INSTRUMENT PROCESSING TECH-C Work Phone: Start: 02-27-2025 Estimated creatinine clearance Viola Starkey INSTRUMENT PROCESSING TECH-C Work Phone: Start: 02-27-2025 Computed tomography of abdomen and pelvis with intravenous contrast Viola Fernandessey INSTRUMENT PROCESSING TECH-C Work Phone: Start: 02-17-2025 Estimated creatinine clearance Viola Starkey INSTRUMENT PROCESSING TECH-C Work Phone: Start: 01-25-2025 Estimated creatinine clearance Viola Starkey INSTRUMENT PROCESSING TECH-C Work Phone: Start: 12-29-2024 Computed tomography of abdomen and pelvis with intravenous contrast Viola Fernandessey INSTRUMENT PROCESSING TECH-C Work Phone: Start: 12-29-2024 Estimated creatinine clearance Viola Fernandessey INSTRUMENT PROCESSING TECH-C Work Phone: Start: 12-09-2024 Estimated creatinine clearance [...] Work Phone: Start: 09-16-2023 Antibody screen TRINIDAD B EFFA Comment on above: Order Comment: Speci men Type: BLOOD SPECIMEN Ordering Facility: [facility] Address: [address] [place] [address] Performed By: #### T [id number] #### [facility] CLIA [id number] [address] [place] [address] [place] [address] [place] Start: 08-27-2023 Colonoscopy [...] Radex wrist complete minimum 3 views Julianna MiNeeds PA Work Phone: Start: 03-08-2022 Ct cervical spine w/ o contrast material Joseluis Darrion DO Work Phone: Start: 03-08-2022 Ct head/brain w/o co ntrast material Joseluis Darrion DO Work Phone: Start: 01-01-2022 Computed tomography of abdomen and pelvis with contrast Start: 11-22-2021 Repair of recurrent ventral hernia YARA HENSON MD Start: 06-16-2018 History of repair of umbilical hernia TRU TOUSSAINT [employer]IC [employer]ATIONS ANALYST Start: 08-29-2017 Adult depression scr eening assessment Ibrahima Schaefer MD Work Phone: Start: 11-12-2016 Lipid 1996 panel - S luigi or Plasma Suresh Griffiths [employer]PUBLIC RELATIONS ANALYST Work Phone: Appendectomy ASHLYN Segura Drain, device (physi mary alice object) AVANI KEMIJADE [employer]PUBLIC [employer]ATIONS ANALYST Comment on above: placed and removed x 3 Plan of Treatment Date Care Activity Detail Author Start: 2029 Zoster Vaccines (1 of 2) Zoste r Vaccines (1 of 2) [facility] Start: 03-24-2025 [facility] Start: 03-08-2025 [facility] Start: 02-27-2025 End: 02-27-2025 [facility] Start: 02-17-2025 [facility] Start: 01-26-2025 [facility] Start: 12-29-2024 [facility] Start: 12-09-[address] [facility] Start: 12-09-2024 [address] se measurement [facility] Start: 12-07-2024 [facility] Start: 08-24-2024 [facility] Start: 02-15-2024 COVID-19 Vaccine ( season) COVID-19 Vaccine ( season) [facility] Start: 02-15-2024 Influenza vaccination C [facility] Start: 07-21-2023 End: 07-21-2024 aPTT in Platelet poor plasma by Coagulation assay ACTIVATED PTT Lab Routine Preoperative examination Infected hernioplasty mesh, sequela Expected: 07/21/2023, Expires: 07/21/2024 [facility] Work Phone: Comment on above: Expected: 07/21/2023 , Expires: 07/21/2024 Start: 07-21-2023 End: 07-21-2024 CBC W Auto Differential panel - Blood CBC + DIFF Lab Routine Preoperative examination Infected hernioplasty mesh, sequela Expected: 07/21/2023, Expires: 07/21/2024 [facility] Work Phone: Comment on above: Expected: 07/21/2023 , Expires: 07/21/2024 Start: 07-21-2023 End: 07-21-2024 Comprehensive metabolic 2000 panel - Serum or Plasma COMP METABOLIC PANEL Lab Routine Preoperative examination Infected hernioplasty mesh, sequela Expected: 07/21/2023, Expires: 07/21/2024 [facility] Work Phone: Comment on above: Expected: 07/21/2023 , Expires: 07/21/2024 Start: 07-21-2023 End: 07-21-2024 PT panel - Platelet poor plasma by Coagulation assay PROTHROMBIN TIME/PT Lab Routine Preoperative examination Infected hernioplasty mesh, sequela Expected: 07/21/2023, Expires: 07/21/2024 [facility] Work Phone: Comment on above: Expected: 07/21/2023 , Expires: 07/21/2024 Start: 07-21-2023 End: 07-21-2024 TYPE AND SCREEN,30 DAY TYPE AND SCREEN,30 DAY Blood Bank Routine Preoperative examination Infected hernioplasty mesh, sequela Expected: 07/21/2023 (Approximate), Expires: 07/21/2024 [facility] Work Phone: Comment on above: Expected: 07/21/2023 (Approximate), Expires: 07/21/2024 Start: 07-03-2023 [facility] Start: 06-16-2023 Depression Assessment Depression Ass essment [facility] Start: 06-12-2023 Patient referral [facility] Work Phone: Start: 06-01-2023 [facility] Start: 02-14-2023 Covid-19 Vaccine ( season) Covid-19 Vaccine ( season) [facility] Start: 02-14-2023 Influenza vaccination Influenza Vacc ine (#1) [facility] Start: 02-14-2022 Influenza vaccination C [facility] Start: 01-14-2022 Influenza vaccination Flu vaccine (# 1) [facility] Start: 01-03-2022 End: 03-05-2022 Bacteria identified in Body fluid by Culture [facility] Work Phone: Comment on above: Expected: 01/03/2022 , Expires: 03/05/2022 Start: 01-01-2022 [facility] Work Phone: Start: 11-12-2021 Lipid panel Lipid Screening [facility] Start: 11-12-2021 LIPID SCREEN LIPID SCREEN [facility] Start: 06-25-2021 COVID-19 Vaccine (4 - Booster for Moderna series) COVID-19 Vaccine (4 - Booster for Moderna series) [facility] Start: 2019 Lipid panel Lipids [facility] Start: 08-29-2018 Adult depression screening assessment DEPRESSION SCREENING [facility] Start: 2014 Diabetes screen Diabetes screen [facility] Start: 2001 DTaP/Tdap/Td Vaccine s (1 - Tdap) DTaP/Tdap/Td Vaccines (1 - Tdap) [facility] Start: 1998 DTaP/Tdap/Td vaccine (1 - Tdap) DTaP/Tdap/Td vaccine (1 - Tdap) [facility] Start: 1998 DTaP/Tdap/Td Vaccine s (1 - Tdap) DTaP/Tdap/Td Vaccines (1 - Tdap) [facility] Start: 1998 Hepatitis B Vaccine (1 of 3 - 19+ 3-dose series) Hepatitis B Vaccine (1 of 3 - 19+ 3-dose series) [facility] Start: 1998 Hepatitis B Vaccines (1 of 3 - 19+ 3-dose series) Hepatitis B Vaccines (1 of 3 - 19+ 3-dose series) [facility] Start: 1998 Pneumococcal Vaccine : Pediatrics and At-Risk Adult Patients (1 of 2 - PCV) Pneumococcal Vaccine: Pediatrics and At-Risk Adult Patients (1 of 2 - PCV) [facility] Start: 1998 Urine microalbumin profile [facility] Start: 1997 Diabetes mellitus screening Diabetes Screening [facility] Start: 1997 HEPATITIS C SCREENING HEPATITIS C SC REEHATTIE [facility] Start: 1997 Hepatitis C screening B [facility] Start: 1997 HIV SCREENING HIV SCREENING [facility] Start: 1997 HIV screening [facility] Screening [facility] Start: 1994 HIV screening HIV screen [facility] Start: 1991 Depression Screen Depression Screen [facility] Start: 1985 PNEUMOCOCCAL (1 - PCV) PNEUMOCOCCAL (1 - PCV) [facility] Start: 1985 Pneumococcal 0-64 ye ars Vaccine (1 - PCV) Pneumococcal 0-64 years Vaccine (1 - PCV) [facility] Start: 1985 Pneumococcal vaccination Pneum ococcal Vaccine (1 of 2 - PCV) [facility] Start: 1985 Pneumococcal Vaccine : Pediatrics (0 to 5 Years) and At-Risk Patients (6 to 64 Years) (1 - PCV) Pneumococcal Vaccine: Pediatrics (0 to 5 Years) and At-Risk Patients (6 to 64 Years) (1 - PCV) [facility] Start: 01-25-1980 MMR Vaccines (1 of 1 - Standard series) MMR Vaccines (1 of 1 - Standard series) [facility] Start: 1979 COVID-19 Vaccine (#1) COVID-19 Vacci ne (#1) [facility] Start: 1979 Hepatitis B Vaccine (1 of 3 - 3-dose series) Hepatitis B Vaccine (1 of 3 - 3-dose series) [facility] Start: 1979 Hepatitis B Vaccines (1 of 3 - 3-dose series) Hepatitis B Vaccines (1 of 3 - 3-dose series) [facility] Start: 1979 HIV screening HIV Screening [facility] Start: 1979 Lipid panel Lipid Panel [facility] Start: 1979 Screening for malign ant neoplasm of colon [facility] Start: 1979 Yearly Adult Physical Yearly Adult P hysical [facility] End: 07-21-2024 ECG COMPLETE ECG COMPLETE ECG Routine Preoperative examination Infected hernioplasty mesh, sequela 1 Occurrences starting 07/21/2023 until 07/21/2024 [facility] Work Phone: Comment on above: 1 Occurrences starti ng 07/21/2023 until 07/21/2024 Erythrocyte mean corpuscular volume determination [facility] Hematocrit [Volume Fraction] of Blood [facility] Hemoglobin [Mass/vol ume] in Blood [facility] Leukocytes [#/volume ] in Blood [facility] Mean corpuscular hemoglobin concentration determination [facility] Mean corpuscular hemoglobin determination [facility] Measurement of renal function [facility] Neutrophil count [facility] Neutrophil percent differential count [facility] Patient Education [facility] Work Phone: Patient referral [facility] Work Phone: Platelets [#/volume] in Blood [facility] Red blood cell count [facility] Red cell distributio n width determination [facility] REFER FOR ADMIT INTERVIEW REFER FOR ADMIT INTERVIEW Procedures Routine Preoperative examination Infected hernioplasty mesh, sequela Ordered: 07/21/2023 [facility] Work Phone: Comment on above: Ordered: 07/21/2023 SPINE INTERVENTION PROCEDURE SPINE INTERVENTION PROCEDURE Procedures Routine Left lateral abdominal pain Ordered: 10/10/2023 [facility] Work Phone: Comment on above: Ordered: 10/10/2023 [facility] Immunizations Immunization Date Immunization Notes Care Provider [facility] 08-23-2024 tetanus toxoid, redu yovanny diphtheria toxoid, and acellular pertussis vaccine, adsorbed; Translations: [Boostrix (Tdap)] BLANCO SHAW MD [facility] 04-30-2021 SARS-CoV-2 (COVID-19 ) mRNA-1273 vaccine JORGITO CANNON DO [facility] Comment on above: Result Comment: 2021: [id number] 10-05-2020 SARS-CoV-2 (COVID-19 ) mRNA-1273 vaccine JORGITO CANNON DO [facility] 09-06-2020 SARS-CoV-2 (COVID-19 ) mRNA-1273 vaccine JORGITO CANNON DO [facility] 09-09-2013 influenza, seasonal, injectable, preservative free ASHLYN BLISS MD [facility] 09-09-2013 influenza virus vaccine, unspecified formulation [facility] Payers Date Payer Category Payer Private Health Insurance [id number] 2024 Self-pay [id number] 2024 Managed Care (Private) NGUYỄN YOTS [facility] [id number] 2023 Unknown NGUYỄN GUERRERO X [id number] 2023-Present [phone] [address] [address] [place] [address] HMO [id number]. [id number] 2023 Unknown [id number] 2022 Medicaid (Managed Care) 1.2. [id number] 2022 Medicaid 2022 Medicaid MEDICAID [facility] MEDICAID [id number] 2022-Present [phone] [address] [place] [address] Medicaid [id number]. [id number] 2014 Medicaid [id number] 2014 Medicaid [id number] 1979 Unknown [id number] 2.16.840.1.075015.3.579.2. 668 1979 Unknown [id number] 2.16.840.1.017119.3.579.2. 204 1979 Unknown [id number] 2.16.840.1.445179.3.579.2. 204 1979 Unknown [id number] 2.16.840.1.730897.3.579.2. 651 1979 Unknown [id number] 2.16.840.1.990832.3.579.2. 903 1979 Unknown [id number] 2.16.840.1.085872.3.579.2. 903 1979 Unknown [id number] 2.16.840.1.078233.3.579.2. 1979 Unknown [id number] 2.16.840.1.239148.3.579.2. 1979 Unknown [id number] 2.16.840.1.222054.3.579.2. 1979 Unknown [id number] 2.16.840.1.433310.3.579.2. 1979 Unknown [id number] 2.16.840.1.575102.3.579.2. 1979 Unknown [id number] 2.16.840.1.851108.3.579.2. 1979 Unknown [id number] 2.16.840.1.438432.3.579.2 1979 Unknown [id number] 2.16.840.1.112237.3.579.2. 1979 Unknown [id number] 2.16.840.1.452372.3.579.2. 627 1979 Unknown [id number] 2.16.840.1.090517.3.579.2. 627 1979 Unknown [id number] 2.16.840.1.876122.3.579.2. 627 1979 Unknown [id number] 2.840.1.425303.3.579.2. 1979 Unknown [id number] 2.840.1.609135.3.579.2. 62 1979 Unknown [id number] 2.840.1.841821.3.579.2. 1979 Unknown [id number] 2.840.1.558708.3.579.2. 627 Unknown [id number] Unknown [id number] 2.840.1.724883.3.579.2. 462 Unknown [id number] 2.840.1.184805.3.579.2. 462 Unknown [id number] 2.840.1.390726.3.579.2. 462 Unknown [id number] 2.840.1.711913.3.579.2. 462 Unknown [id number] 2.840.1.368166.3.579.2. 462 Unknown [id number] 2.840.1.245668.3.579.2. 462 Unknown [id number] 2.840.1.067161.3.579.2. 462 Unknown [id number] 2.16840.1.258726.3.579.2. 462 Unknown [id number] 2.16840.1.922729.3.579.2. 462 Unknown [id number] 2.840.1.213937.3.579.2. 462 Unknown [id number] 2.16.840.1.543276.3.579.2. 462 Unknown [id number] 2.16.840.1.656266.3.579.2. 462 Unknown [id number] 2.16.840.1.911681.3.579.2. 462 Social History Date Type Detail Facility Start: 10-23-2016 End: 03-24-2025 Tobacco smoking status Smokes tobacco daily (finding) [facility] Sex Assigned At [facility] Start: 10-19-2021 End: 08-27-2023 Tobacco smoking status Light tobacco smoker (finding) [facility] Start: 11-14-2021 End: 07-01-2022 Tobacco smoking status Heavy tobacco smoker (finding) [facility] Start: 01-01-2022 End: 06-01-2023 Tobacco smoking status NHIS Unknown if ever smoked [facility] Start: 09-23-[address] [facility] Start: 1980 Sex Ass[address] Male [facility] Start: 10-23-2016 End: 08-13-2024 Cigarettes smoked current (pack per day) - Reported 2 [facility] Start: 10-23-2016 End: 08-13-2024 Tobacco use and exposure Smokeless tobacco non-user [facility] Start: 01-03-2022 End: 09-16-2023 Alcohol intake Current non-drinker of alcohol (finding) [facility] Start: 1980 Sex Assigned At Not on file [facility] Start: 12-24-2021 End: 06-29-2024 Exposure to SARS-CoV-2 (event) Not sure [facility] Start: 03-08-2022 Alcohol intake Ex-drinker (finding) [employer] Work Phone: History of tobacco use Cigarette Smoker B ON [employer] ([place] Work Phone: Start: 07-07-2023 End: 08-13-2024 Tobacco use panel [facility] National Score (1-10 0), lower number is lower risk 67 [facility] Start: 06-25-2023 Gender identity Identifies as male gender (finding) [facility] Start: 06-25-2023 Sexual orientation Heterosexual (finding) [facility] Start: 09-16-2023 Tobacco Comment Currently smokes 0.5 ppd [facility] Start: 09-16-2023 Alcohol Comment rare [facility] Start: 06-29-2024 End: 08-13-2024 Alcoholic beverage intake Lifetime non-drinker (finding) [facility] Work Phone: History of tobacco use Passive smoker [facility] Work Phone: Start: 08-10-2013 End: 08-24-2024 Sex Male (finding) [facility] Medical Equipment Procedure Code Equipment Code [...] Result Facility 05-16-2024 Functional Status Independent [facility] [place] 05-16-2024 Functional Status Standard Safet y ID band on, Allergy Band on, Call device within reach, Bed in low position, Wheels locked, Visitor at bedside, Safety level maintained [facility] 09-11-2023 Functional Status Independent [facility] 08-27-2023 Functional Status Awake, Up ad loc [facility] 08-27-2023 Functional Status Maintained, Less than 8 hours [facility] 06-28-2023 Functional Status Room check performed [facility] 06-28-2023 Functional Status [facility] 06-08-2023 Functional Status Independent [facility] 06-08-2023 Functional Status Ambulation in [place], Ambulation in Room [facility] 05-16-2023 Functional Status Standard Safet y ID band on, Allergy Band on, Call device within reach, Bed in low position, Wheels locked, Upper/Half-Length side-rails up, personal items within reach, Visitor at bedside [facility] 02-12-2023 Functional Status ID band on, Allergy Band on, Call device within reach, Bed in low position, Wheels locked, Bedside Cart Locked, Visitor at bedside, Safety level maintained [facility] 02-12-2023 Functional Status [facility] 10-28-2022 Functional Status ID band on, Allergy Band on [facility] 10-28-2022 Functional Status ID band on, Allergy Band on, Call device within reach, Bed in low position, Wheels locked, Upper/Half-Length side-rails up, Phone within reach, personal items within reach, Bedside Cart Locked, Visitor at bedside [facility] 10-21-2022 Functional Status ID band on, Allergy Band on, Safety level maintained [facility] 09-12-2022 Functional Status Ambulating in zamorano [facility] 09-05-2022 Functional Status Sensory Deficits None [facility] 08-28-2022 Functional Status Standard Safet y ID band on, Call device within reach, Bed in low position, Wheels locked, Upper/Half-Length side-rails up, Bedside Cart Locked, Safety level maintained [facility] 08-18-2022 Functional Status Independent [facility] 08-18-2022 Functional Status Room check performed [facility] 07-22-2022 Functional [facility] Functional Status Standard Safet y ID band on, Allergy Band on, Call device within reach, Bed in low position, Wheels locked, Visitor at bedside [facility] 07-18-2022 Functional Status abdominal bind er on, ice on [facility] 07-18-2022 [facility] Functional Status Activity Pillo tanmiguel Independent [facility] 07-15-2022 Functional Status Standard Safet y ID band on, Allergy Band on, Call device within reach, Bed in low position, Wheels locked, Upper/Half-Length side-rails up, Phone within reach, personal items within reach, Safety level maintained [facility] 07-09-2022 Functional Status Sensory Deficits None A [facility] 06-27-2022 Functional Status Room check performed [facility] 06-27-2022 Functional Status [facility] 06-01-2022 Functional Status Ambulating in zamorano, Ambulating in room, Awake [facility] 05-31-2022 Functional Status Standard Safet y ID band on, Allergy Band on, Call device within reach, Bed in low position, Wheels locked, Upper/Half-Length side-rails up, personal items within reach [facility] 05-27-2022 [facility] Functional Status Room check performed [facility] 03-14-2022 Functional Status [facility] 12-21-2021 Functional Status Standard Safet y ID band on, Call device within reach, Bed in low position, Wheels locked, Upper/Half-Length side-rails up, Bedside Cart Locked, Safety level maintained [facility] 12-21-2021 Functional Status [facility] 11-30-2021 Functional Status Standard Safet y ID band on, Call device within reach, Bed in low position [facility] 11-14-2021 Functional Status Sensory Deficits None A [facility] 10-06-2021 Functional Status [facility] 10-06-2021 Functional Status [facility] Mental Status Date Assessment Result Facility 03-07-2025 Cognitive function Voice/Name [facility] Work Phone: 05-16-2024 Mental Status Orientation Oriented x 4 [facility] 05-16-2024 Mental Status [facility] 09-11-2023 Mental Status Orientation Oriented x 4 [facility] 08-27-2023 Mental Status Oriented x 4 [facility] 08-27-2023 Mental Status [facility] 06-28-2023 Mental Status Orientation Oriented x 4 [facility] 06-28-2023 Mental Status [facility] 06-08-2023 Mental Status Orientation Oriented x 4 [facility] 06-08-2023 [facility] Status [facility] 05[facility]16[facility]23 Mental Status Orientation Oriented x 4 [facility] 02-12-2023 Mental Status Orientation Oriented x 4 [facility] 02-12-2023 Mental Status [facility] 10-28-2022 Mental Status Orientation Oriented x 4 [facility] 10-28-2022 Mental Status Oriented x 4 [facility] 10-21-2022 Mental Status Orientation Oriented x 4 [facility] 09-12-2022 Mental Status Orientation Oriented x 4 [facility] 09-05-2022 Mental Status Orientation Oriented x 4 [facility] 08-28-2022 Mental Status Orientation Oriented x 4 [facility] 08-18-2022 Mental Status Orientation Oriented x 4 [facility] 08-18-2022 [facility] 07-22-2022 Mental Status Orientation Oriented x 4 [facility] 07-22-2022 Mental Status [facility] 07-18-2022 Mental Status Orientation Oriented x 4 [facility] 07-18-2022 Mental Status [facility] 07-15-2022 Mental Status Orientation Oriented x 4 [facility] 07-15-2022 Mental Status [facility] 06-28-2022 Mental Status Orientation Oriented x 4 [facility] 06-27-2022 Mental Status [facility] 06-01-2022 Mental Status Orientation Oriented x 4 [facility] 05-31-2022 Mental Status [facility] 05-27-2022 Mental Status Orientation Oriented x 4 [facility] 03-15-2022 Mental Status Orientation Oriented x 4 [facility] 03-14-2022 Mental Status [facility] 12-21-2021 Mental Status Oriented x 4 [facility] 12-21-2021 Mental Status [facility] 11-30-2021 Mental Status Orientation Oriented x 4 [facility] 11-30-2021 Mental Status [facility] 10-06-2021 Mental Status [facility] 10-06-2021 Mental Status [facility] Clinical Notes 10-06-2021 to 03-24-2025 Note Date & Type Note Facility 03-24-[address] [facility] 03-24-2025 Discharge summary Note Date/Time March 24, 2025 10:43pm [facility] Medical Records Department [address] [place] [address] Emergency Department Summary 03/24/25 MR#: [id number] Acct: [id number] Name: PATRICK KOROMA Rep #:[id number] : 1980 45 From: Guero Baker DO PCP: ERIC Anaya Status:DEP ER Location: ED HPI History of Present Illness Chief Complaint: Abd Pain Informant: patient Narrative Narrative: Patient is a 45-year-old male with known history of a ventral hernia. He statesthat he has been doing well and today was at work when he was asked to move a propane tank. He states the tank was small and not extremely heavy. He reportsafter lifting it however he developed pain in the upper abdomen. He states thatthere has been no fevers or chills nausea or vomiting. He reports he took kytv-bql-tfiosvd medication without any symptom improvement. Therefore with theworsening pain he presents for evaluation [facility] Medical History (Updated 03/25/25 @ 23:[address] Guero Baker DO) Abdominal pain Seroma after procedure Influenza due to influenza virus, type A, human Contact with or suspected exposure to other viral communicable disease Sprain of left foot Left ankle sprain Strain of left knee Contusion of left knee Seizures Home Medications ?Medication ?Instructions ?Recorded ?Last Taken ?Type oxycodone-acetaminophen 5 mg-325 1 tab PO Q6H PRN pain 3 days #12 03/24/25 Unknown Rx mg tablet (Percocet) tabs Allergy/AdvReac Type Severity Reaction Status Date / Time adhesive tape Allergy Hives Verified 03/24/25 19:55 cephalexin monohydrate (From Allergy Anaphylaxis Verified 03/24/25 19:55 Keflex) levetiracetam (From Keppra) Allergy Hives Verified 03/24/25 19:55 morphine Allergy Shortness Verified 03/24/25 19:55 of breath naproxen (From Naprosyn) Allergy Hives Verified 03/24/25 19:55 Family History Grandmother Arthritis Mother Arthritis Seizures [...] Denies rash Neurologic Neurologic: Denies headache(s) Hematologic/Lymphatic Hematologic/Lymphatic: Denies easy bleeding or easy bruising EXAM Physical Exam Const Vital Signs: 03/24/25 19:54 03/24/25 21:54 Temperature 98.4 F Temperature Source Oral Pulse Rate 108 H 93 Respiratory Rate 18 Blood Pressure 144/94 H 146/87 H Blood Pressure Mean 110 106 Pulse Ox 99 98 Oxygen Delivery Method Room Air Room Air Positive well nourished, well developed and obese General Appearance ED: well developed; Negative for pallor Nutritional Appearance: obese HEENT HEENT Narrative: Normocephalic atraumatic Eyes PERRL and EOMs intact bilaterally General Eye ED: Negative for scleral icterus Neck supple Resp normal respiratory effort and clear to auscultation bilaterally Cardio regular rate and regular rhythm Rate: other Other Details: Radial and carotid pulses are equal and symmetric GI non-distended GI Narrative: Abdomen is obese soft and nondistended with normal active bowel sounds. There is a large ventral hernia noted with apparent intestine protruding through. However there is no sign of incarceration or strangulation as the hernia feels reducible. No peritoneal signs or pulsatile mass. No voluntary guarding or rigidity. No increased tympany or fluid wave. Auscultation: normoactive bowel sounds Palpation: soft Back/Spine no CVA tenderness Extremity normal to inspection Neuro oriented x3, CN's II-XII intact bilaterally and no sensory deficits noted Sensorium / Orientation: alert Motor Exam: strength 5/5 throughout Psych mental status grossly normal Skin no rashes or lesions noted Skin Narrative: No overlying soft tissue changes to suggest trauma or infection General Skin Exam: Negative for jaundice or pallor MDM MDM MDM Narrative Medical decision making narrative: Patient presented to the ER mildly hypertensive but otherwise with stable vitals. He has a known history of a ventral hernia he is scheduled to see a specialized surgeon in just a few days and he has been to the ER previously and worked up for this with normal laboratory studies and CT scan. As the pain cameon after lifting I do feel that this is an exacerbation of his hernia. He does not have findings of cellulitis or abscess there is no sign of incarceration or strangulation or small bowel obstruction. Therefore I feel no need for imaging or laboratory studies and patient will be treated symptomatically and is otherwise safe for discharge. History & Record Review Discussion w/independent historian: Patient Discharge Plan Triage Chief Complaint: Abd Pain ED Provider: Guero Baker Dx/Rx/DC Orders Clinical Impression: Ventral hernia, Abdominal pain, Personal history of seizure disorder Instructions: Abdominal Pain, ED Hernia (Adult) Prescriptions: New oxycodone-acetaminophen [Percocet] 5-325 mg tablet 1 tab PO Q6H PRN (Reason: pain) 3 Days Qty: 12 0RF Primary Care Provider: Viola Starkey NP Referrals: Viola Starkey NP, INSTRUMENT PROCESSING TECH-C [Primary Care Provider, Family Practice] Activity Restrictions/Additional Instructions: Please follow-up with your surgeon as previously directed and return to the ER if you have any further concerns or worsening of symptoms Print Language: Vincentian Disposition Disposition: Home, Self Care Discharge Date/Time: 03/24/25 22:43 What to do if you have Problems For any increased pain, shortness of breath, bleeding, nausea or vomiting, chestpain, or any unexpected problems, contact your Primary Care Provider. Call [facility] ([phone]) or report to the closest Emergency Room. Call 911 if necessary. 03/25/25 4311 <Electronically signed by Guero Baker DO> Cosigner Signature (if applicable): CC: ERIC Starkey ~ Signed [facility] Work Phone: [phone] Discharge summary [facility] Medical Records Department [address] [place] [address] Emergency Department Summary 03/08/25 MR#: [id number] Acct: [id number] Name: PATRICK KOROMA Rep #:[id number] : 1980 45 From: Guero Baker DO PCP: ERIC Anaya Status:DEP ER Location: ED HPI History of Present Illness Chief Complaint: Seizure Informant: patient and spouse/S.O. Narrative Narrative: Patient is a 45-year-old male with remote history of seizure disorder. He reportedly has not had a seizure for 3 years and does not take antiepileptic medication. He also has a history of a chronic ventral hernia. He states this evening he was sitting on the couch watching a movie. And then the next he remembers he is waking up. His reports that she noticed his head starting to margarita and that progressed to further shaking. Patient denies loss of bowel or bladder control. He states that he has not been sick in any way recently he hasnot started or stopped any medications and he denies any alcohol use. As he hasnot had a seizure for multiple years he presents for evaluation [facility] Medical History (Updated 03/08/25 @ 01:[address] Guero Baker DO) Abdominal pain Seroma after procedure Influenza due to influenza virus, type A, human Contact with or suspected exposure to other viral communicable disease Sprain of left foot Left ankle sprain Strain of left knee Contusion of left knee Seizures Home Medications ?Medication ?Instructions ?Recorded ?Last Taken ?Type NK 03/07/25 Unknown History Allergy/AdvReac Type Severity Reaction Status Date / Time adhesive tape Allergy Hives Verified 03/07/25 22:42 cephalexin monohydrate (From Allergy Anaphylaxis Verified 03/07/25 22:42 Keflex) levetiracetam (From Keppra) Allergy Hives Verified 03/07/25 22:42 morphine Allergy Shortness Verified 03/07/25 22:42 of breath naproxen (From Naprosyn) Allergy Hives Verified 03/07/25 22:42 Family History Grandmother Arthritis Mother Arthritis Seizures Father Colon cancer Diabetes Brother Heart disease Surgical History H/O hernia repair History of appendectomy Social History household members: spouse Smoking Status: Current every day smoker tobacco type: cigarettes alcohol intake: never ROS ROS ED Constitutional Constitutional ED: Denies chills or fever(s) Eyes Eyes: Denies change in vision ENT ENT ED: Denies rhinorrhea or sore throat Cardiovascular Cardiovascular: Denies chest pain Respiratory/Chest Respiratory/Chest: Denies cough or dyspnea Gastrointestinal Gastrointestinal: Reports abdominal pain; Denies diarrhea, nausea or vomiting Genitourinary Genitourinary ED: Denies dysuria Musculoskeletal Musculoskeletal: Denies back pain, myalgias or neck pain Integumentary Denies rash Neurologic Neurologic: Reports headache(s); Denies paresthesias or weakness Hematologic/Lymphatic Hematologic/Lymphatic: Denies easy bleeding or easy bruising EXAM Physical Exam Const Vital Signs: 03/07/25 22:38 03/07/25 23:38 03/08/25 00:56 Temperature 98.4 F 98.0 F Temperature Source Oral Pulse Rate 90 85 70 Respiratory Rate 14 16 16 Blood Pressure 159/87 H 148/89 H 122/81 H Blood Pressure Mean 111 108 94 Pulse Ox 98 99 98 Oxygen Delivery Method Room Air Room Air Positive well nourished and well developed General Appearance ED: well developed; Negative for pallor HEENT HEENT Narrative: Normocephalic atraumatic No tongue or cheek biting noted No findings in the posterior pharynx to suggest infection Eyes PERRL and EOMs intact bilaterally General Eye ED: Negative for scleral icterus Neck supple Neck Narrative: No nuchal rigidity or meningeal sign Chest Wall palpation of chest normal Resp normal respiratory effort and clear to auscultation bilaterally Cardio regular rate and regular rhythm GI non-distended and no masses GI Narrative: There is a ventral hernia noted that is reducible in nature Otherwise no voluntary guarding rigidity or pulsatile mass Auscultation: normoactive bowel sounds Palpation: soft Extremity normal to inspection Neuro oriented x3, CN's II-XII intact bilaterally and no sensory deficits noted Neuro Narrative: GCS of 15 Cranial nerves II through XII are grossly intact without focal neurologic deficit No pronator drift no dysmetria no truncal ataxia NIH stroke scale score of 0 Sensorium / Orientation: alert Motor Exam: strength 5/5 throughout Psych mental status grossly normal Skin no rashes or lesions noted and no wounds General Skin Exam: Negative for jaundice or pallor MDM MDM MDM Narrative Medical decision making narrative: Patient arrived to the ER hypertensive but otherwise with stable vitals. Patient and reported a breakthrough seizure. Patient does have a history of seizure disorder but has not had a seizure for multiple years. In order to assess for potential brain mass versus spontaneous subarachnoid or subdural hemorrhage a CT of the head was obtained. In order to assess for other potential causes such as acute blood loss anemia acute kidney injury or electrolyte abnormality lab work was obtained. Chest x-ray was ordered to rule out aspiration or pneumonia as a cause. Chest x-ray revealed no acute lung pathology. Lab work revealed no clinically significant findings. The patient had no bouts of seizure activity while in the ER. On reevaluation he is restingcomfortably and neurologic exam remains normal. Therefore at this time with overall negative workup no recurrent seizure activity and the patient at a baseline mental status without neurologic findings there is no need for further intervention or admission in the ER and is otherwise safe for discharge home History & Record Review Discussion w/independent historian: Patient and Significant other Lab Data Attestation: I reviewed the patient's lab results. Labs: Laboratory Results - last 24 hr 03/07/25 23:20 WBC 9.6 RBC 4.75 Hgb 14.9 Hct 43.3 MCV 91.2 MCH 31.4 MCHC 34.4 RDW Std Deviation 43.3 RDW Coeff of Nory 13.0 Plt Count 312 MPV 9.9 Immature Gran % (Auto) 0.800 Neut % (Auto) 53.7 Lymph % (Auto) 34.8 [place] % (Auto) 6.0 Eos % (Auto) 3.6 Baso % (Auto) 1.1 H Absolute Neuts (auto) 5.2 Absolute Lymphs (auto) 3.35 Nucleated RBC % 0 Sodium 136 Potassium 4.1 Chloride 102 Carbon Dioxide 22.2 Anion Gap 12 BUN 11 Creatinine 0.73 Estim Creat Clear Calc 199.80 Est GFR (MDRD) Non-Af 114 BUN/Creatinine Ratio 15.2 Glucose 115 H Lactic Acid 1.6 Calcium 9.0 Magnesium 2.1 Radiography Diagnostic Testing: Clinical Impression(s) from Imaging Studies Brain CT 03/07/25 23:13 IMPRESSION: Unremarkable head CT. Reading Location: [id number] Chest X-Ray 03/07/25 23:40 IMPRESSION: No acute cardiopulmonary disease. Reading Location: [id number] Chest x-ray as interpreted by the emergency medicine physician reveals no acute infiltrate pneumothorax or pleural effusion Discharge Plan Triage Chief Complaint: Seizure ED Provider: Guero Baker Dx/Rx/DC Orders Clinical Impression: Breakthrough seizure, Ventral hernia, Hypertension Instructions: Seizure Affects on Body, Self-Care for Seizures Prescriptions: No Action NK Primary Care Provider: Viola Starkey NP Referrals: Murphy Dillard MD [Non-Staff -Ordering Privileges, Neurology] Viola Starkey NP, YULI-C [Primary Care Provider, Family Practice] Activity Restrictions/Additional Instructions: Your workup revealed no obvious cause for a breakthrough seizure such as infection brain mass/bleedor electrolyte abnormality. Please follow-up with your family doctor as well as urology to discuss restarting medication and return to the ER should you have any further concerns. Print Language: Vincentian Disposition Disposition: Home, Self Care Discharge Date/Time: 03/08/25 00:58 What to do if you have Problems For any increased pain, shortness of breath, bleeding, nausea or vomiting, chestpain, or any unexpected problems, contact your Primary Care Provider. Call [facility] ([phone]) or report tothe closest Emergency Room. Call 911 if necessary. 03/08/25 0130 Cosigner Signature (if applicable): CC: ERIC Starkey ~ Signed [facility]09-22-2025 Radiology Diagnostic study note [facility] Imaging Services [address] [place], [place] [address] Brain/Head without Contrast MR#: [id number] Acct: [id number] Name: PATRICK KOROMA Rep #: [id number] : 1980 M 45 From: Morales Box MD PCP: ERIC Anaya Status: REG ER Study:Brain/Head without Contrast Date of Exa m: 03/07/25 Exam# [id number] Ordering Dr: Maru Baker DO PROCEDURE: CT BRAIN/HEAD WITHOUT CONTRAST 03/07/2025 REASON FOR EXAM: SEIZURE TECHNIQUE: Procedure Code: CTBR Modality: CT Procedure: BRAIN/HEAD WITHOUT CONTRAST Coronal and Sagittal reconstruction series were provided. One or more dose reduction techniques were used (e.g., Automated exposure control, adjustment of the mA and/or kV according to patient size, use of iterative reconstruction technique. RADIATION DOSE SUMMARY: CTDlvol: 44.99 mGy DLP: 796.11 mGycm COMPARISON: None. FINDINGS: No acute intracranial hemorrhage, extra-axial collection, mass effect or evidence of acute infarct. Ventricles and subarachnoid spaces are normal in size. Orbital contents are unremarkable. Intact skull base and calvarium. Clear paranasal sinuses and mastoid air cells. CT/Brain/Head without Contrast IMPRESSION: Unremarkable head CT. Reading Location: [facility] CC: INSTRUMENT PROCESSING TECH-C Viola Starkey; Guero Baker DO ~ Motorcycle Subassembler: Signed [facility]09-22-2025 Radiology Diagnostic study note [facility] Imaging Services [address] [place] [id number] Chest 1 View (Portable) MR#: [id number] Acct: [id number] Name: PATRICK KOROMA Rep #: [id number] : 1980 M 45 From: Morales Box MD PCP: ERIC Anaya Status: REG ER Study:Chest 1 View (Portable) Date of Exam: 03/07/25 Exam# [id number] Ordering Dr: Maru Baker DO PROCEDURE: CHEST 1 VIEW (PORTABLE) 03/07/2025 REASON FOR EXAM: SEIZURE TECHNIQUE: Frontal view of the chest. COMPARISON: None. FINDINGS: Lungs/Pleura: Clear. No pneumothorax or sizable pleural effusion. Heart/Mediastinum: Within normal limits. Bones/Soft tissues: No significant abnormality. RAD/Chest 1 View (Portable) IMPRESSION: No acute cardiopulmonary disease. Reading Location: [facility] CC: ERIC Starkey; Guero Baker DO ~ Motorcycle Subassembler: Signed [facility]09-17-2025 Hospital Discharge instructions Patient Education 03/02/2025 00:06:50 Hernia (Adult) [...] or as directed by your healthcare provider [phone] [employer]. [address] [place] [address], [place] [address]. All rights reserved. This information is not intended as a substitute for professional medical care. Always follow yourhealthcare professional's instructions. Follow Up Care 03/01/2025 22:53:25 With:Your surgeon at next available appointment Address:Unknown When: Unknown With:VIOLA STARKEY APRN-PUBLIC RELATIONS ANALYST Address: [address] [place] [phone] When:2-4 days [facility] 09-17-2025 Note Discharge Instructions Thank you for allowing [...] Up with VIOLA STARKEY When:Within 2-4 days Where:[address] [place] [address]- [phone] Allergies Keflex Keppra Rash Tape, Paper Rash [...] or as directed by your healthcare provider [phone] [employer]. [address] [place] [address], [place] [address]. All rights reserved. This information is not intended as a substitute for professional medical care. Always follow yourhealthcare professional's instructions. Additional Information VACCINATE! IT SAVES LIVES! Members of the community who have not yet received the COVID-19 vaccine and would like to receive it can visit one of [facility] vaccine clinics. There are many vaccine clinic locations within the [facility]. For locations and available times, please visit www.[email or web address].[place].gov/. It is important to note that some COVID mobile vaccine clinics are held outdoors and may be canceled in rainy or stormy conditions. To learn more about pediatric vaccinations (ages 5-11), we invite you to visit the [facility] webpage. [email or web address]/[email or web address]-[email or web address] stions.htmlTo learn more about the COVID-19 vaccine, we invite you to visit the CDC website for a list of frequently asked questions. https://www.cdc.gov/coronavirus/2019-ncov/vaccines/faq.html [facility] Access Instructions: Stay connected with your healthcare team and access your personal medical information anytime with the [facility] Patient Portal. If you would like a full copy of your medical records please contact the [facility] Medical Records Department Friday through Friday between 8a.m. and 4:30p.m. Please follow the directions below to access the portal: 1.Access the email account you provided upon registration to the hospital.2.Look for an invitation email from [facility].3.Open the email and access the invitation link: Accept Invitation to [facility]4.Fill in the required vegas to create your account. To access your account, visit [email or web address] or scan the [employer] code above. Click the [employer] Access Patient Portal and then log in with the username and password that you created in the steps above. You can then view a summary of results, a summary of your visits, and the ability to download your summaries to your computer or send the information securely to a physician. Re member that your healthcare information is confidential, so carefully consider who you will allow to register on the [facility] Patient Portal for access to your information. You can also access the [employer] Patient Portal on the [employer]. Simply click on Health Records under Health Data and then click on the Brett logo. [...] Call your local pharmacy or go to http://bit.GetAutoBids/4A6Th2h to find one close to you.3.Make use of household items: Use cat litter or old coffee grounds to dispose medications if other options arenot available. Mix your drugs with these household products, seal them in an airtight container andthrow it into the garbage. Call [facility]: [phone] to be sure your drugs can be [...] aware that I should contact my doctor. Patient/Sap Security Architect Signature: Date/Time: Relationship to Patient: Witness Name/Signature: Date/Time: [facility]09-16-2025 Note* Exam Date Time Procedure Performing Provider Status 03/01/25 11:[address] Abdomen/Pelvis w/o Contrast MILIND GOLDSMITH MD; Auth (Verified) [id number] ORIGINAL EXAMINATION: CT OF THE ABDOMEN AND [...] Sign Date: 03/02/2025 12:00:47 AM Ordering Provider: [facility]09-14-2025 Discharge summary [facility] Medical Records Department [address] [place] [address] Emergency Department Summary 02/27/25 MR#: [id number] Acct: [id number] Name: PATRICK KOROMA Rep #:[id number] : 1980 45 From: Joseluis Mario PCP: Viola Starkey, INSTRUMENT PROCESSING TECH-C Status:REG ER Location: ED HPI History of Present Illness Chief Complaint: Abd Pain PFSH PFS Medical History (Updated 02/27/25 @ 22:34 by [...] Ox 98 Oxygen Delivery Method Room Air MDM MDM MDM Narrative Medical decision making narrative: HISTORY OF PRESENT ILLNESS: Chief complaint: Abdominal pain 45-year-old male here with concern for abdominal pain. History of large hernia,appendectomy. Notes he follows a specialist at [facility]. Notes he has a surgical evaluation/ operation scheduled for March. He notes worsening pain in the abdomen. Denies vomiting. Denies fever. Last bowel movement was this morning (reported as normal). No urinary complaints. REVIEW OF SYSTEMS: Pertinent positives: Abdominal pain Pertinent negatives: As per HPI PHYSICAL EXAM: Nursing triage notes reviewed, Vital signs reviewed Constitutional: [facility] HENT: MMM Eyes: Pupils equal round and [...] MEDICAL DECISION MAKING: Chief Complaint: please see [facility] External records reviewed: Seen on 02/2025 for abdominal pain. Reviewed prior imaging studies. Reviewed imaging studies from January 07 which shows Factors affecting care: As per [facility] Social determinants of health: none History obtained from others: Mary? Consults: none [facility] Narrative: The patient was initially hypertensive with [...] Discharge home This note was generated with Spacious App dictation software. It may contain incorrectwords, spelling, [...] % (Auto) 55.5 Lymph % (Auto) 34.6 [place] % (Auto) 6.8 Eos % (Auto) 2.2 [...] IN THE ABDOMEN OR PELVIS. Reading Location: [facility] Discharge Plan Triage Chief Complaint: Abd Pain [...] - Active Staff] - Viola Starkey NP, INSTRUMENT PROCESSING TECH-C [Primary Care Provider] - Activity Restrictions/Additional Instructions: [...] further outpatient evaluation and management. Print Language: Vincentian Disposition Disposition: Home, Self Care What to do if you have Problems For any increased pain, shortness of breath, bleeding, nausea or vomiting, chestpain, or any unexpected problems, contact your Primary Care Provider. Call [facility] ([phone]) or report tothe closest Emergency Room. Call 911 if necessary. 02/27/25 0312 Cosigner Signature (if applicable): CC: INSTRUMENT PROCESSING TECH-Marielos Starkey ~ Signed [facility]09-14-2025 Radiology Diagnostic study note [facility] Imaging Services [address] [place], [place] [address] Abdomen/Pelvis W IV Cont ONLY MR#: [id number] Acct: [id number] Name: PATRICK KOROMA Rep #: [id number] : 1980 M 45 From: Elias Collazo MD PCP: ERIC Anaya Status: REG ER Study:Abdomen/Pelvis W IV Cont ONLY Date of E xam: 02/27/25 Exam# [id number] Ordering Dr: Solis Maier DO PROCEDURE: ABDOMEN/PELVIS [...] IN THE ABDOMEN OR PELVIS. Reading Location: [id number] CC: INSTRUMENT PROCESSING TECH-C Viola Starkey; Dr. Joseluis Maier DO ~ Motorcycle Subassembler: Signed [facility]09-14-2025 Discharge summary Author Joseluis Maier [facility] Note Date/Time February 27, 2025 10:57pm [facility] Medical Records Department [address] [place] [address] Emergency Department Summary 02/27/25 MR#: [id number] Acct: [id number] Name: PATRICK KOROMA Rep #:[id number] : 1980 45 From: Joseluis Mario PCP: ERIC Anaya Status:REG ER Location: ED HPI History of Present Illness Chief Complaint: Abd Pain PFSH PFS Medical History (Updated 02/27/25 @ 22:34 by [...] Ox 98 Oxygen Delivery Method Room Air [facility] Narrative Medical decision making narrative: HISTORY OF PRESENT ILLNESS: Chief complaint: Abdominal pain 45-year-old male here with concern for abdominal pain. History of large hernia,appendectomy. Notes he follows a specialist at [facility]. Notes he has a surgical evaluation/ operation scheduled for March. He notes worsening pain in the abdomen. Denies vomiting. Denies fever. Last bowel movement was this morning (reported as normal). No urinary complaints. REVIEW OF SYSTEMS: Pertinent positives: Abdominal pain Pertinent negatives: As per HPI PHYSICAL EXAM: Nursing triage notes reviewed, Vital signs reviewed Constitutional: [facility] HENT: MMM Eyes: Pupils equal round and [...] of health: none History obtained from others: Fianc? Consults: none [facility] Narrative: The patient was initially hypertensive with [...] Discharge home This note was generated with Spacious App dictation software. It may contain incorrectwords, spelling, [...] % (Auto) 55.5 Lymph % (Auto) 34.6 [place] % (Auto) 6.8 Eos % (Auto) 2.2 [...] IN THE ABDOMEN OR PELVIS. Reading Location: [facility] Discharge Plan Triage Chief Complaint: Abd Pain [...] - Active Staff] - Viola Starkey NP, INSTRUMENT PROCESSING TECH-C [Primary Care Provider] - Activity Restrictions/Additional Instructions: [...] further outpatient evaluation and management. Print Language: Vincentian Disposition Disposition: Home, Self Care What to do if you have Problems For any increased pain, shortness of breath, bleeding, nausea or vomiting, chestpain, or any unexpected problems, contact your Primary Care Provider. Call [facility] ([phone]) or report to the closest Emergency Room. Call 911 if necessary. 02/27/25 4776 <Electronically signed by Joseluis Maier DO> Cosigner Signature (if applicable): CC: ERIC Starkey ~ Signed [facility] Work Phone: 1(281) 519-600007-16-2025 Discharge summary [facility] Medical Records Department [address] [place] [address] Emergency Department Summary 12/29/24 MR#: [id number] Acct: [id number] Name: PATRICK KOROMA Rep #:[id number] : 1980 44 From: Justin Cordero MD [...] [place] in [place] he was told by him he could do it. He referred himto a surgeon in [place] at and they also told him they were not able to help him. Patient denies any fever. No dysuria. Denies any nausea, vomiting or diarrhea. No back pain. Prior similar symptoms: Yes Recent Illness/Hospitalization: No PFSH [facility] Medical History Seroma after procedure Influenza [...] have referred him to the [facility] they have generalsurgeons here that her hernia surgical instrument repair specialist to see if they can offer him [...] % (Auto) 61.9 Lymph % (Auto) 30.4 [place] % (Auto) 5.1 Eos % (Auto) 1.7 [...] containing omental fat, without bowel. Reading Location: [place] [address] Discharge Plan Triage Chief Complaint: Abd Pain ED Provider: Justin Cordero Dx/Rx/DC Orders Clinical Impression: Abdominal pain, Ventral hernia Instructions: ED Hernia (Adult) Prescriptions: No Action NK Primary Care Provider: Viola Starkey NP Referrals: Viola Starkey NP, YULI-C [Primary Care Provider] - Activity Restrictions/Additional Instructions: Call the [facility]. Get the name and office number of the general surgeons therethat are hernia surgical instrument repair specialist. Call their office to get an appointment. Motrin and Tylenol for pain. Print Language: Vincentian Disposition Disposition: Home, Self Care What to do if you have Problems For any increased pain, shortness of breath, bleeding, nausea or vomiting, chestpain, or any unexpected problems, contact your Primary Care Provider. Call [facility] ([phone]) or report tothe closest Emergency Room. Call 911 if necessary. 12/29/24 2250 Cosigner Signature (if applicable): CC: INSTRUMENT PROCESSING TECH-C Viola Starkey ~ Signed [facility]07-16-2025 Radiology Diagnostic study note [facility] Imaging Services [address] [place], [place] [address] Abdomen/Pelvis W IV Cont ONLY MR#: [id number] Acct: [id number] Name: PATRICK KOROMA Rep #: [id number] : 1980 M 44 From: Desirae Cruz MD PCP: ERIC Anaya Status: REG ER Study:Abdomen/Pelvis W IV Cont ONLY Date of E xam: 12/29/24 Exam# [id number] Ordering Dr: Shay Cordero MD PROCEDURE: ABDOMEN/PELVIS [...] containing omental fat, without bowel. Reading Location: [place] [address] CC: YULI-C Viola Starkey; Dr. Justin Cordero MD ~ Motorcycle Subassembler: Signed [facility]07-16-2025 Discharge summary Author Justin Cordero [facility] Note Date/Time December 29, 2024 10:5 0pm [facility] Medical Records Department [address] [place] [address] Emergency Department Summary 12/29/24 MR#: [id number] Acct: [id number] Name: PATRICK KOROMA Rep #:[id number] : 1980 44 From: Justin Cordero MD [...] did his other hernia repair surgeries in [place] he was told by him he could do it. He referred himto a surgeon in [place] at and they also told him they were not able to help him. Patient denies any fever. No dysuria. Denies any nausea, vomiting or diarrhea. No back pain. Prior similar symptoms: Yes Recent Illness[facility] Medical History Seroma after procedure Influenza [...] have referred him to the [facility] they have general surgeons here that her hernia surgical instrument repair specialist to see if they can offer him [...] % (Auto) 61.9 Lymph % (Auto) 30.4 [place] % (Auto) 5.1 Eos % (Auto) 1.7 [...] containing omental fat, without bowel. Reading Location: [place] [address] Discharge Plan Triage Chief Complaint: Abd Pain ED Provider: Justin Cordero Dx/Rx/DC Orders Clinical Impression: Abdominal pain, Ventral hernia Instructions: ED Hernia (Adult) Prescriptions: No Action NK Primary Care Provider: Viola Starkey NP Referrals: Viola Starkey NP, INSTRUMENT PROCESSING TECH-C [Primary Care Provider] - Activity Restrictions/Additional Instructions: Call the [facility]. Get the name and office number of the general surgeons there that are hernia surgical instrument repair specialist. Call their office to get an appointment. Motrin and Tylenol for pain. Print Language: Vincentian Disposition Disposition: Home, Self Care What to do if you have Problems For any increased pain, shortness of breath, bleeding, nausea or vomiting, chestpain, or any unexpected problems, contact your Primary Care Provider. Call [facility] ([phone]) or report to the closest Emergency Room. Call 911 if necessary. 12/29/24 225 <Electronically signed by Justin Cordero MD> Cosigner Signature (if applicable): CC: INSTRUMENT PROCESSING TECH-C Viola Starkey ~ Signed [facility] Work Phone: 1(866) 441-532306-26-2025 Radiology Diagnostic study note [facility] Imaging Services [address] [place] [address] Abdomen/Pelvis W IV Cont ONLY MR#: [id number] Acct: [id number] Name: PATRICK KOROMA Rep #: [id number] : 1980 M 44 From: Weston Mena MD PCP: ERIC Anaya Status: REG ER Study:Abdomen/Pelvis W IV Cont ONLY Date of E xam: 12/09/24 Exam# [id number] Ordering Dr: Maru Baker DO PROCEDURE: ABDOMEN/PELVIS [...] of the stomach, probably gastritis. Reading Location: [place] [address] CC: ERIC Starkey; DO Josh Mendoza Motorcycle Subassembler: Signed [facility]06-24-2025 Discharge summary [facility] Medical Records Department [address] [place] [address] Emergency Department Summary 12/07/24 MR#: [id number] Acct: [id number] Name: PATRICK KOROMA Rep #:[id number] : 1980 44 From: Guevara Choi MD PCP: ERIC Anaya Status:REG ER Location: ED HPI History of Present Illness Chief Complaint: Upper Extremity Injury Informant: patient Narrative Narrative: During tear down of a car level traction at the [facility], patient states he smashed his right thumb between 2 metal poles on accident. Vkvmo-btwv-vuhhaahx. [facility] Medical History Seroma after procedure Influenza [...] abnormality of the right hand. Reading Location: [id number] Discharge Plan Triage Chief Complaint: Upper Extremity Injury ED Provider: Guevara Choi Dx/Rx/DC Orders Clinical Impression: Contusion of right thumb with damage to nail, initial encounter Instructions: ED Finger or Toe Contusion Prescriptions: No Action NK Primary Care Provider: Viola Starkey NP Referrals: Viola Starkey NP, INSTRUMENT PROCESSING TECH-C [Primary Care Provider] - 10-14 Days if not better Print Language: Vincentian Disposition Disposition: Home, Self Care What to do if you have Problems For any increased pain, shortness of breath, bleeding, nausea or vomiting, chestpain, or any unexpected problems, contact your Primary Care Provider. Call [facility] ([phone]) or report tothe closest Emergency Room. Call 911 if necessary. 12/07/24 0013 Cosigner Signature (if applicable): CC: ERIC Starkey ~ Signed [facility]06-23-2025 Radiology Diagnostic study note [facility] Imaging Services [address] [place], [place] [address] Hand Min 3 Views MR#: [id number] Acct: [id number] Name: PATRICK KOROMA Rep #: [id number] : 1980 M 44 From: Viki Ba MD PCP: ERIC Anaya Status: PRE ER Study:Hand Min 3 Views Date of Exam: Exam# [id number] Ordering Dr: Curtis Choi MD PROCEDURE: HAND [...] ERIC Starkey; Dr. Guevara Choi MD ~ Motorcycle Subassembler: Signed [facility]04-06-2025 Discharge summary [facility] Medical Records Department [address] [place] [address] Emergency Department Summary 09/19/24 MR#: [id number] Acct: [id number] Name: PATRICK KOROMA Rep #:[id number] : 1980 44 From: Brian Maldonado MD PCP: ERIC Anaya Status:REG ER Location: ED HPI History of Present Illness Chief Complaint: Upper Extremity Injury Narrative Narrative: 44-year-old male, alvtz-aieg-oxjmkypm, presents with injury to his right shoulder [...] raise his right arm. Denies other injuries. [facility] Medical History Seroma after procedure Influenza [...] clavicle and shoulder pain worse with movement. Vyiiq-hvqn-xhkfjtvy. Denies hitting of his head or loss [...] AC joint separation. Patient was given 1 [place] tablet here for analgesia and x-rays obtained [...] not improving. I feel he can take nvof-exk-aiwyhae medications for analgesia. Return instructions to the [...] Week if not improving Viola Starkey NP, INSTRUMENT PROCESSING TECH-C [Primary Care Provider] - Activity Restrictions/Additional Instructions: You may wear the sling for comfort but exercise your right shoulder at least 3 times a day to prevent frozen shoulder. Hhtc-lig-cdbdxat medications as needed for pain. Follow-up with orthopedics if not improving. Print Language: Vincentian Disposition Disposition: Home, Self Care What to do if you have Problems For any increased pain, shortness of breath, bleeding, nausea or vomiting, chestpain, or any unexpected problems, contact your Primary Care Provider. Call [facility] ([phone]) or report tothe closest Emergency Room. Call 911 if necessary. 09/19/242224 Cosigner Signature (if applicable): CC: ERIC Starkey ~ Signed [facility]04-06-2025 Radiology Diagnostic study note [facility] Imaging Services [address] [place], [place] [address] Shoulder min 2 Views MR#: [id number] Acct: [id number] Name: PATRICK KOROMA Rep #: [id number] : 1980 M 44 From: Zuly Tena DO PCP: ERIC Anaya Status: REG ER Study:Shoulder min 2 Views Date of Exam: 09/19/24 Exam# [id number] Ordering Dr: Brian Maldonado MD PROCEDURE: SHOULDER [...] ERIC Starkey; Dr. Brian Maldonado MD ~ Motorcycle Subassembler: Signed [facility]04-06-2025 Radiology Diagnostic study note [facility] Imaging Services [address] [place] [id number] Clavicle MR#: [id number] Acct: [id number] Name: PATRICK KOROMA Rep #: [id number] : 1980 M 44 From: Zuly Tena DO PCP: ERIC Anaya Status: REG ER Study:Clavicle Date of Exam: 09/19/24 Exam# [id number] Ordering Dr: Brian Maldonado MD PROCEDURE: CLAVICLE 09/19/2024 REASON FOR EXAM: TRAUMA TECHNIQUE: Two views of the right clavicle were obtained COMPARISON: None FINDINGS: Bones: No acute fracture. Joints: Joint spaces are preserved. Soft tissues: No soft tissue abnormality. RAD/Clavicle IMPRESSION: NO EVIDENCE OF CLAVICLE FRACTURE Reading Location: [place] CC: ERIC Starkey; Dr. Brian Maldonado MD ~ Motorcycle Subassembler: Signed [facility]04-06-2025 Discharge summary Author Brian Maldonado [facility] Note Date/Time September 19, 2024 10:[address] [facility] Medical Records Department [address] [place] [address] Emergency Department Summary 09/19/24 MR#: [id number] Acct: [id number] Name: PATRICK KOROMA Rep #:[id number] : 1980 44 From: Brian Maldonado MD PCP: Viola Starkey, INSTRUMENT PROCESSING TECH-C Status:REG ER Location: ED HPI History of Present Illness Chief Complaint: Upper Extremity Injury Narrative Narrative: 44-year-old male, cziko-fyfi-hdzwjhhd, presents with injury to his right shoulder [...] raise his right arm. Denies other injuries. [facility] Medical History Seroma after procedure Influenza [...] clavicle and shoulder pain worse with movement. Egela-hpwr-dpyronhi. Denies hitting of his head or loss [...] AC joint separation. Patient was given 1 [place] tablet here for analgesia and x-rays obtained [...] not improving. I feel he can take qetz-ezs-riuzapb medications for analgesia. Return instructions to the [...] Week if not improving Viola Starkey NP, INSTRUMENT PROCESSING TECH-C [Primary Care Provider] - Activity Restrictions/Additional Instructions: You may wear the sling for comfort but exercise your right shoulder at least 3 times a day to prevent frozen shoulder. Tqtk-gsg-ckkrvvx medications as needed for pain. Follow-up with orthopedics if not improving. Print Language: Vincentian Disposition Disposition: Home, Self Care What to do if you have Problems For any increased pain, shortness of breath, bleeding, nausea or vomiting, chestpain, or any unexpected problems, contact your Primary Care Provider. Call [facility] ([phone]) or report to the closest Emergency Room. Call 911 if necessary. 09/19/242224 <Electronically signed by Brian Maldonado MD> Cosigner Signature (if applicable): CC: INSTRUMENT PROCESSING TECH-Marielos Starkey ~ Signed [facility] Work Phone: 1(987) 157-874003-11-2025 Radiology Diagnostic study note [facility] Imaging Services [address] [place], [place] [address] Shoulder min 2 Views MR#: [id number] Acct: [id number] Name: PATRICK KOROMA Rep #: [id number] : 1980 M 44 From: Shahbaz Johnson DO PCP: Care Physician,No Primary Status: PRE ER Study:Shoulder min 2 Views Date of Exam: 08/24/24 Exam# [id number] Ordering Dr: Provider ,Ed P. PROCEDURE: Right shoulder radiographs REASON FOR EXAM: PAIN, LOSS OF MOBILITY TECHNIQUE: Four views of the right shoulder COMPARISON: None. FINDINGS: See impression RAD/Shoulder min 2 Views IMPRESSION: Negative for acute fracture or malalignment. 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 Mildacromioclavicular joint osteoarthritis. Reading Location: [facility] CC: ED PHYSICIAN PROVIDER; No Primary Care Physician ~ Motorcycle Subassembler: Signed [facility]02-28-2025 History of Present illness Narrative* Stephon [...] <40). Stephon Benavides MD documented in this [facility] Work Phone: 1(255) 687-391701-14-2025 History of Present illness Narrative* Jonathan Gonzalez MD - 06/29/2024 2:45 PM EST History Of Present Illness : Patrick Cali is a 44 y.o. male who presents as a self-referral for second opinion with regard to his abdominal wall. The patient lives in [place]. The patient has had multiple abdominal operations in the past. He had a laparoscopic appendectomy in 2000 in [place]. He thereafter had 3 operations for abdominal wall hernias by Dr. Aaron Duque at [facility]. In 2016 and 2018, he underwent [...] abdomen pelvis was in May 09 at [facility] in [place]. The patient has noted recurrent fullness in the mid abdomen, with associated sharp pain especially at night, since March 2024.. He denies other symptoms such as nausea vomiting diarrhea constipation changes bowel habits or blood in the stool. Patient is engaged to be to Af[employer] who accompanied him to the office. He has 4 children. 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 The patient denies [...] Not Present- Headaches, Numbness, Tingling, Seizures, Stroke, DUPLIGRAPH OPERATOR Shunt and Weakness. Psychiatric: Not Present- Anxiety, [...] recommendations and management plan documented in this [facility] Work Phone: 1(304) 251-684412-02-2024 Hospital Discharge instructions Patient Education 05/16/2024 22:58:38 [...] or as directed by your healthcare provider [id number] [employer]. [address] [place] [address]. All rights reserved. This information is not intended as a substitute for professional medical care. Always follow yourhealthcare professional's instructions. Follow Up Care 05/16/2024 21:33:35 With:AARON DUQUE MD, Surgery Address: [address] [facility] [place] [address] [phone] When:2-4 days [facility] 12-01-2024 Emergency department Discharge summary Discharge Instructions Thank you for allowing [facility] to assist you with your healthcare needs. [...] Surgery When:Within 2-4 days Where:[address] [place] [address] [phone] Allergies Keflex Keppra Rash Tape, Paper Rash [...] or as directed by your healthcare provider [phone] [employer]. [address] [place] [address], [place] [address]. All rights reserved. This information is not intended as a substitute for professional medical care. Always follow yourhealthcare professional's instructions. Additional Information VACCINATE! IT SAVES LIVES! Members of the community who have not yet received the COVID-19 vaccine and would like to receive it can visit one of [facility] vaccine clinics. There are many vaccine clinic locations within the [facility]. For locations and available times, please visit www.[email or web address]/. It is important to note that some COVID mobile vaccine clinics are held outdoors and may be canceled in rainy or stormy conditions. To learn more about pediatric vaccinations (ages 5-11), we invite you to visit the [facility] webpage. https://www.[facility].org/pages/4736-Ovfez-Wnlmfznwfsc-Ptypkgqmst-Kwubw-Lhp stions.htmlTo learn more about the COVID-19 vaccine, we invite you to visit the CDC website for a list of frequently asked questions. https://www.cdc.gov/coronavirus/2019-ncov/vaccines/faq.html [facility] Patient Portal Access Instructions: Stay connected with your healthcare team and access your personal medical information anytime with the [facility] Patient Portal. If you would like a full copy of your medical records please contact the [facility] Medical Records Department Friday through Friday between 8a.m. and 4:30p.m. Please follow the directions below to access the portal: 1.Access the email account you provided upon registration to the hospital.2.Look for an invitation email from [facility].3.Open the email and access the invitation link: Accept Invitation to [facility]4.Fill in the required vegas to create your account. Sign into [email or web address] with your username and password that you [...] you will allow to register on the [facility] Patient Portal for access to your information. You can also access the [facility] Patient Portal on the eSNF randal. Simply click on Health Records under 121cast and then click on the Brett logo. [...] Call your local pharmacy or go to http://bit.GetAutoBids/6F0Pz8u to find one close to you.3.Make use of household items: Use cat litter or old coffee grounds to dispose medications if other options arenot available. Mix your drugs with these household products, seal them in an airtight container andthrow it into the garbage. Call [facility]: [phone] to be sure your drugs can be [...] aware that I should contact my doctor. Patient/Sap Security Architect Signature: Date/Time: Relationship to Patient: Witness Name/Signature: Date/Time: [facility] [id number] Emergency department Discharge summary Discharge Instructions Thank [...] Surgery When:Within 2-4 days Where:[address] [facility] [place] [address]- [phone] Allergies Keflex Keppra Rash Tape, Paper Rash [...] or as directed by your healthcare provider [phone] [employer]. [address] [place] [address], [place] [address]. All rights reserved. This information is not intended as a substitute for professional medical care. Always follow yourhealthcare professional's instructions. Additional Information VACCINATE! IT SAVES LIVES! Members of the community who have not yet received the COVID-19 vaccine and would like to receive it can visit one of [facility] vaccine clinics. There are many vaccine clinic locations within the [facility]. For locations and available times, please visit www.[email or web address]/. It is important to note that some COVID mobile vaccine clinics are held outdoors and may be canceled in rainy or stormy conditions. To learn more about pediatric vaccinations (ages 5-11), we invite you to visit the [facility] webpage. https://www.[facility].org/pages/8406-Ihlei-Dmhaifaiiwr-Bpxlacmezk-Kiben-Pxx stions.htmlTo learn more about the COVID-19 vaccine, we invite you to visit the CDC website for a list of frequently asked questions. https://www.cdc.gov/coronavirus/2019-ncov/vaccines/faq.html [facility] Patient Portal Access Instructions: Stay connected with your healthcare team and access your personal medical information anytime with the [facility] Patient Portal. If you would like a full copy of your medical records please contact the [facility] Medical Records Department Friday through Friday between 8a.m. and 4:30p.m. Please follow the directions below to access the portal: 1.Access the email account you provided upon registration to the [facility].2.Look for an invitation email from [facility].3.Open the email and access the invitation link: Accept [facility]itation to [facility]4.Fill in the required vegas to create your account. Sign into [email or web address] with your username and password that you [...] you will allow to register on the [facility] Patient Portal for access to your information. You can also access the [facility] Patient Portal on the eSNF randal. Simply click on Health Records under LaraPharm[employer] and then click on the DriverSide logo. HOW TO SAFELY DISPOSE OF PRESCRIPTION [...] Call your local pharmacy or go to http://bit.GetAutoBids/7D3Ct2b to find one close to you.3.Make use of household items: Use cat litter or old coffee grounds to dispose medications if other options arenot available. Mix your drugs with these household products, seal them in an airtight container andthrow it into the garbage. Call [facility]: [phone] to be sure your drugs can be [...] aware that I should contact my doctor. Patient/Sap Security Architect Signature: Date/Time: Relationship to Patient: Witness Name/Signature: Date/Time: [facility]12-01-2024 Note ORIGINAL EXAMINATION: CT OF THE [...] Sign Date: 05/16/2024 10:27:09 PM Ordering Provider: [facility]05-07-2024 Telephone encounter Note* Telephone Encounter - Christy Rodrigez, IBETH - 10/21/2023 10:42 AM EDT Neuro SPINE [...] Dr. Hannah. Christy Rodrigez RN BSN Nurse Gas Processing Plant Operator [facility] Work Phone: [phone]) 656-356405-07-2024 Miscellaneous Notes* Telephone Encounter - Christy Rodriegz RN - 10/21/2023 10:42 AM EDT Neuro [...] Dr. Hannah. Christy Rodrigez RN BSN Nurse Gas Processing Plant Operator * Telephone Encounter - Christy Rodrigez RN - 10/10/2023 10:21 AM EDT Neuro SPINE CARE COORDINATION QUICK NOTE Dr. Borrero received referral from Dr. Richardson. Ordered placed for spine med injection with Dr. Hannah. Called patient to advise. Received VM message 'calling restrictions that have prevented the completion of the call' MYC message sent. Christy Rodrigez RN BSN Nurse Gas Processing Plant Operator documented [facility] Telephone encounter Note * Telephone Encounter - Christy Rodrigez RN - 10/10/2023 10:21 AM EDT Neuro SPINE CARE COORDINATION QUICK NOTE Dr. Borrero received referral from Dr. Richardson. Ordered placed for spine med injection with Dr. Hannah. Called patient to advise. Received VM message 'calling restrictions that have prevented the completion of the call' MYC message sent. Christy Rodrigez RN BSN Nurse Gas Processing Plant Operator [facility]04-02-2024 History and physical note* Gilles Graham PA-C [...] requiring medication, no history of angina, CHF, CT, cardiac surgery or stents. Denies rest pain, [...] 362 QTC Calculation (Bazett) 457 Calculated P [place] 30 Calculated R [place] 19 Calculated T [place] 18 Impression NORMAL SINUS RHYTHM NORMAL ECG No results found for this or any previous visit (from the past 43967 hour(s)). Instructions Given to Patient: Instructions located in the after visit summary. Patient given verbal and written preop instructions and voices comprehension and compliance. SIGNATURE: Gilles Graham PA-C PATIENT NAME: Patrick Koroma DATE: September 15, 2023 TIME: 1:59 PM PAGER/CONTACT #: documented in [facility]The [facility]-2024 Instructions* Patient Instructions* Gilles Graham PA-C - 09/15/2023 1:58 PM EDT PATIENT PREOPERATIVE INSTRUCTIONS Trinidad Richardson* has scheduled you for your procedure at this surgery center: [facility] Scheduling Office: [phone] --[address] [place] [address]. Please read below carefully for your personalized [...] Procedures: - YOU MUST HAVE A RESPONSIBLE ACCOUNT COORDINATOR TAKE YOU HOME. A TEAM PHYSICIAN OR CLINICAL RADIOLOGIST CANNOT BE MADE A RESPONSIBLE ACCOUNT COORDINATOR. - We recommend that a responsible person [...] call the Friday before. Your surgeon s flat breakdown processor will tell you what time to call the office. - If you have not reached the departmental flat breakdown processor by 5 P.M., call [phone] after 5 P.M. the day before your surgery. Please be aware that emergency situations arise, which may delay or change your surgical time. If this happens, we will notify you as soon as possible and regret any inconvenience. If you already have an Advance Directive, please fax a copy to [phone] or email to for it to be [...] day. Gilles Graham PA-C documented in [facility]The [facility] Hospital Discharge instructions Patient Education 09/11/2023 18:40:07 [...] foods again, start with small amounts of sasi-dz-ajachf, low- fat foods. These include apple sauce, [...] increase stomach acid. Don't use aspirin or jgrq-vma-iknkset pain and fever medicines, if possible. This includes nonsteroidal anti-inflammatory drugs (NSAIDs). Lose excess weight. Finish eating at least 2 hours before you go to bed or lie down. Raise the head of your bed. [phone] [employer]. [address] [place] [address], [place] [address]. All rights reserved. This information is not intended as a substitute for professional medical care. Always follow yourhealthcare professional's instructions. Follow Up Care 09/11/2023 18:01:14 With:VIOLA STARKEY Address: [address] [place] [phone] When:2-4 days [facility] 03-28-2024 Note Discharge Instructions Thank you for allowing [facility] to assist you with your healthcare needs. The following is importantdischarge information regarding your hospital visit. Diagnosis from Today's Visit Abdominal pain Abdominal pain What to Do Next Instructions from Your Care Team No qualifying data available. Post Acute Orders No qualifying data available. You Need to Schedule the Following Appointments Follow Up with VIOLA STARKEY When Within 2-4 days Where: [address] [place] [id number] [phone] Allergies Keflex Keppra (Rash) Tape, Paper (Rash) [...] foods again, start with small amounts of vouk-ik-agmndr, low- fat foods. These include apple sauce, [...] increase stomach acid. Don't use aspirin or wofn-xkj-ykzkete pain and fever medicines, if possible. This includes nonsteroidal anti-inflammatory drugs (NSAIDs). Lose excess weight. Finish eating at least 2 hours before you go to bed or lie down. Raise the head of your bed. 8634-7355 [employer]. [address] [place] [address]. All rights reserved. This information is not intended as a substitute for professional medical care. Always follow yourhealthcare professional's instructions. Additional Information VACCINATE! IT SAVES LIVES! Members of the community who have not yet received the COVID-19 vaccine and would like to receive it can visit one of [facility] vaccine clinics. There are many vaccine clinic locations within the [facility]. For locations and available times, please visit www.[email or web address].[place].gov/. It is important to note that some COVID mobile vaccine clinics are held outdoors and may be canceled in rainy or stormy conditions. To learn more about pediatric vaccinations (ages 5-11), we invite you to visit the [facility] webpage. https://www.[facility].org/pages/8236-Qezqi-Yegntkgcull-Asvdukidlt-Kxvfn-Zrl stions.htmlTo learn more about the COVID-19 vaccine, we invite you to visit the CDC website for a list of frequently asked questions. https://www.cdc.gov/coronavirus/2019-ncov/vaccines/faq.html [facility] Patient Portal Access Instructions: Stay connected with your healthcare team and access your personal medical information anytime with the [facility] Patient Portal. If you would like a full copy of your medical records please contact the [facility] Medical Records Department Friday through Friday between 8a.m. and 4:30p.m. Please follow the directions below to access the portal: 1.Access the email account you provided upon registration to the [facility].2.Look for an invitation email from [facility].3.Open the email and access the invitation link: Accept Invitation to [facility]4.Fill in the required vegas to create your account. Sign into [email or web address] with your username and password that you [...] you will allow to register on the [facility] Patient Portal for access to your information. You can also access the [facility] Patient Portal on the eSNF randal. Simply click on Health Records under 121cast and then click on the Brett logo. [...] Call your local pharmacy or go to http://bit.GetAutoBids/9J6Ry1r to find one close to you.3.Make use of household items: Use cat litter or old coffee grounds to dispose medications if other options arenot available. Mix your drugs with these household products, seal them in an airtight container andthrow it into the garbage. Call [facility]: [phone] to be sure your drugs can be [...] aware that I should contact my doctor. Patient/Sap Security Architect Signature: Date/Time: Relationship to Patient: Witness Name/Signature: Date/Time: [facility] [id number] Evaluation + Plan noteExtracted from: Title:Clinical Document Author:REYES MOORE ate:08/27/23 MOORE ADMISSION HISTORY AN D PHYSICIAL CHIEF COMPLAINT: Colorectal cancer screening HISTORY OF PRESENT ILLNESS: Colorectal cancer screening, high risk, family history of colon cancer REVIEW OF SYSTEMS: Constitutional: denies weight loss Cardiovascular:denies chest pain, palpitations Respiratory:denies shortness of breath Gastrointestinal:no abd pain Musculoskeletal: no arthralgias Skin: no rashes ACTIVE PROBLEMS: (13) Acid reflux (097099601) 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 ([id number]) Electric shock (7757814001) Fall (2416144) Family history of colon cancer (179944572) Full dentures (146682965) Pain in the abdomen (69160576) Postprocedural hematoma of skin and subcutaneous tissue following other procedure (566472143) Screening for colon cancer (806622729) Seizure (587287353) TIA (659642952) Tobacco use (6480451386) Umbilical hernia (4650962166) MEDICATIONS: Active Inpt Meds: None Active PRN [...] IgG 08/07/23 * Complete Metabolic Panel 08/07/23 [facility] 03-13-2024 Hospital Discharge instructions Patient Education [...] before eating solid foods. General instructions Take sjts-cfk-vjnhibv and prescription medicines only as told by [...] 09/22/2016 Document Revised: 08/31/2018 Document Reviewed: 09/22/2016 [employer] Patient Education 2020 [employer]. 08/27/2023 10:26:35 Colonoscopy, Adult, Care After Colonoscopy, [...] a slower pace than normal. ?Eat soft, cgjs-sk-rbbyzl foods. Take cdsy-prr-ieljecz or prescription medicines only as told by [...] 01/14/2005 Document Revised: 03/25/2018 Document Reviewed: 08/13/2016 [employer] Patient Education 2020 [employer]. Follow Up Care 08/22/2023 07:36:51 With:REYES MOORE DO Clinical Gastroenterology Address: [address] [place] [phone]- [phone] When:Within 1 Year(s) Comments:Repeat colonoscopy in 1 year. Will need extra bowel prep. With:VIOLA STARKEY Address: [address] [place] [phone] When: [facility] 03-13-2024 Note Discharge Instructions Thank you for allowing [facility] to assist you with your healthcare needs. [...] year. Will need extra bowel prep. Where: [address] [place] [phone] Follow Up with VIOLA STARKEY When Where: [address] [place] [phone] The Following Activity and Diet Have Been [...] before eating solid foods. General instructions Take ftrf-ojp-xsmtpef and prescription medicines only as told by [...] 09/22/2016 Document Revised: 08/31/2018 Document Reviewed: 09/22/2016 [employer] Patient Education 2020 [employer]. Colonoscopy, Adult, Care After This sheet gives [...] slower pace than normal. ? Eat soft, fndm-rt-jaampp foods. Take jjfm-cql-uocvtin or prescription medicines only as told by [...] 01/14/2005 Document Revised: 03/25/2018 Document Reviewed: 08/13/2016 [employer] Patient Education 2020 [employer]. Additional Information VACCINATE! IT SAVES LIVES! Members of the community who have not yet received the COVID-19 vaccine and would like to receive it can visit one of [facility] vaccine clinics. There are many vaccine clinic locations within the [facility]. For locations and available times, please visit [email or web address]/. It is important to note that some COVID mobile vaccine clinics are held outdoors and may be canceled in rainy or stormy conditions. To learn more about pediatric vaccinations (ages 5-11), we invite you to visit the [facility] webpage. https://www.[facility].org/pages/3415-Siaoh-Hhtmxrapubp-Jwywkdkihc-Ysevr-Eni stions.htmlTo learn more about the COVID-19 vaccine, we invite you to visit the CDC website for a list of frequently asked questions.https://www.cdc.gov/coronavirus/2019-ncov/vaccines/faq.html [facility] Patient Portal Access Instructions: Stay connected with your healthcare team and access your personal medical information anytime with the [facility] Patient Portal. Please follow the directions below to create your [facility] account: 1.Access the email account you provided upon registration to the hospital/physician office.2.Look for an invitation email from [facility].3.Open the email and access the invitation link: AcceptInvitation to [facility].4.Fill in the required vegas to create your account. To access your account, visit [email or web address]. Click the blue button labeled Access Patient Portal and then log in with the username and password that you created in the steps above. You will be able to view your test results, lab results, a summary of your visits, upcoming appointments and more. There is also a convenient messaging option where you can send secure messages to your [employer]. In addition, you will have the ability to download any documents or summaries to your computer and/or send the information securely to a physician. Remember that your healthcare information is confidential, so carefully consider who you will allowto register on the [facility] Patient Portal for access to your information. You can also access the [facility] Patient Portal on the [facility] Anywhere randal. Simply click on Patient Portal and then log into your account. If you would like to receive a full copy of your medical records, please contact the [facility] Medical Records Department by calling [phone], Friday through Friday between 8 a.m. and [...] Call your local pharmacy or go to http://bit.GetAutoBids/1G7Dp6n to find one close to you.3.Make use of household items: Use cat litter or old coffee grounds to dispose medications if other options arenot available. Mix your drugs with these household products, seal them in an airtight container andthrow it into the garbage. Call [facility]: [phone] to be sure your drugs can be [...] aware that I should contact my doctor. Patient/Sap Security Architect Signature: Date/Time: Relationship to Patient: Witness Name/Signature: Date/Time: [facility]03-13-2024 Anesthesiology Consult note Patient: PATRICK KOROMA Age: 43 years Sex: Male : 1980 Associated Diagnoses: None Author: DARIEL HITCHCOCK APRN-CONTOUR GRINDER Assessment Postanesthesia assessment Vitals: Vital signs from [...] by DARIEL HITCHCOCK on 08/27/2023 10:18 AM [facility]03-13-2024 Anesthesiology Consult note Patient: PATRICK KOROMA [...] Pain in the abdomen / SNOMED CT 12680299 / Confirmed Acid reflux / SNOMED CT 310351153 / Confirmed 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 / SNOMED CT [id number] / Confirmed Fall / SNOMED CT 2654903 / Confirmed Family history of colon cancer / SNOMED CT 722696791 / Confirmed Electric shock / SNOMED CT 9521936940 / Confirmed Full dentures / SNOMED CT 479135373 / Confirmed Screening for colon cancer / SNOMED CT 833822819 / Confirmed Postprocedural hematoma of skin and subcutaneous tissue following other procedure / SNOMED CT 876070599 / Confirmed Seizure / SNOMED CT 668688456 / Confirmed TIA / SNOMED CT 103815819 / Confirmed Umbilical hernia / SNOMED CT 8737669149 / Confirmed, Active Problems (13) Acid reflux 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 Electric shock Fall Family history of colon cancer Full dentures Pain in the abdomen Postprocedural hematoma of skin and subcutaneous tissue following other procedure Screening for colon cancer Seizure TIA Tobacco use Umbilical hernia Histories Past Medical History: Active TIA (769189071) Acid reflux (928564491) Seizure (732675816) Family History: Suicide Brother Congenital heart disease Brother Alcohol abuse Father () Stroke Mother Father () Diabetes Father () Colon cancer Father () Procedure history: Laparoscopic repair of recurrent umbilical hernia using synthetic mesh (5637520250) on 07/18/2022 at 42 Years. Comments: 07/23/2022 11:02 LAN - Leslie Boucher LPN OPEN REPAIR OF RECURRENT PERIUMBILICAL HERNIA WITH ANTERIOR COMPONENT SEPARATION WITH ONLAY MESH REPAIR Repair of recurrent ventral hernia (344639556) on 11/22/2021 at 41 Years. History of repair of umbilical hernia (4856853439) in 2019 at 39 Years. Appendectomy (653694904). Drain (63373848). 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 Tobacco 4Risk Assessment: High Risk 08/27/2023 Tobacco [...] Signs(last 24 hrs) Last Charted Heart Rate Zfnwwnzbf10 bpm (AUG 26 09:40) SNI502 mmHg (AUG 26 09:46) DBPH 93mmHg (AUG 26 09:46) BMI42.04 (AUG 26 09:40) Measurements from flowsheet : Measurements 08/27/2023 9:40 EDT Height 184.5 cm Admission Weight 143.1 kg Weight Method Stated Ronan Body Weight 79.07 kg BSA Admission 2.6 [...] Surgeon SN - CAt - Role Performed CONTOUR GRINDER SN - CAt - Role Performed Mud Engineer 1 SN - CAt - Role [...] Quadrants Present Skin Temperature Warm Skin Description [place], Dry Skin Integrity Intact Skin Moisture General [...] Allergies Yes Anesthesia Extension Set Applied Yes Electrical Assembly Technician On Yes Colon Prep Results Good [...] Person #1 We May Share RAINE Meyer [phone] Designated Person #1 Relationship Significant other Designated Person #2 We May Share RAINE Almeida [phone] Designated Person #2 Relationship Mother Privacy Restrictions Requested None Height 184.5 cm Admission Weight 143.1 kg Weight Method Stated Ronan Body Weight 79.07 kg BSA Admission 2.6 [...] Method Explanation, Printed materials Preferred Spoken Language Vincentian Preferred Written Language Vincentian Information Given by Patient Patient's Current Physicians [...] Safety In Error (In Error) 08/27/2023 7:00 [facility] History and Physical . Assessment and Plan [place] [employer] Anesthesiologists (ASA) physical status classification: Class III. Anesthetic Preoperative Plan Anesthetic technique: MAC. Informed consent: signed by patient. Digitally Signed by DARIEL HITCHCOCK on 08/27/2023 10:09 AM [facility]03-13-2024 Note MOORE ADMISSION HISTORY AND PHYSICIAL CHIEF COMPLAINT: Colorectal cancer screening HISTORY OF PRESENT ILLNESS: Colorectal cancer screening, high risk, family history of colon cancer REVIEW OF SYSTEMS: Constitutional: denies weight loss Cardiovascular:denies chest pain, palpitations Respiratory:denies shortness of breath Gastrointestinal:no abd pain Musculoskeletal: no arthralgias Skin: no rashes ACTIVE PROBLEMS: (13) Acid reflux (338197357) 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 ([id number]) Electric shock (2991525226) Fall (8571289) Family history of colon cancer (324441070) Full dentures (658986446) Pain in the abdomen (01105066) Postprocedural hematoma of skin and subcutaneous tissue following other procedure (711666149) Screening for colon cancer (009242292) Seizure (824196524) TIA (357571861) Tobacco use (8153246743) Umbilical hernia (8527975907) MEDICATIONS: Active Inpt Meds: None Active PRN [...] REYES MOORE DO on 08/27/2023 07:01 AM [facility]02-22-2024 Evaluation + Plan note Future Scheduled Tests Laboratory* Thyroid Stimulating Hormone 08/07/23 * Complete Blood Count 08/07/23 * Lipid Profile 08/07/23 * Hepatitis C Antibody IgG 08/07/23 * Complete Metabolic Panel 08/07/23 [facility] 02-21-2024 NoteHNO ID: [id number] Author: VICKI MERAZ APRN.BERT, ALMA Service: ? 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 He was referred by Suresh Griffiths CNP (General Surgery) [address] [place] [phone]. This consultation was shared with the referral source via the [facility] electronic medical record. The patient understanding of [...] activity was identified. 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 He was referred by Suresh Griffiths CNP (General Surgery) [address] [place] [address]. This consultation was shared with the referral source via the [facility] electronic medical record. The patient understanding of [...] suspiciousactivity was identified. 08/06/2023 by Vicki Meraz APRN.PUBLIC RELATIONS ANALYST, DNP Functional Limitations: The patient has been [...] denied CHF: denied Uncontrolled HTN: denied Recent CT: denied Arrythmias: denied Afib: denied Hyperthyroid: denied [...] heart attack. Got his GED. 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 [...] which included preparing to see the patient, eccv-kp-juue patient care, completing clinical documentation, obtaining and/or reviewing separately obtained history, performing a medically appropriate examination, counseling and educating the pat ient/family/caregiver, and ordering medications, tests, or procedures. Vikci Meraz APRN.ALMA NOEL documented in [facility]24 NoteHNO ID: [id number] Author: TRINIDAD RICHARDSON MD Service: ? Author [...] our notes. Patient consented for study? [facility] NoteHNO ID: [id number] Author: VIVIANA TERESA MD Service: ? Author Type: Fellow Type: Progress Notes Filed: 07/07/2023 09:35 Note Text: [facility] - HISTORY AND PHYSICAL Chief Complaint: pain to the left of the hernia repair HPI: Patrick Koroma is a 43 year old male with PMH post traumatic seizure disorder, s/p appendectomy and multiple hernia repair who presents with pain lateral to the hernia repair site On 11/22/21 he had a robotic assisted repair of recurrent ventral hernia at [place] with Dr Aaron Duque with removal of [...] intervention needed. Mostly neuropathic pain Viviana Teresa, [facility]01-18-2024 Note. MICRO - Microbiology PROCEDURE: Blood Culture [...] Locations *1: This test was performed at: [address] ([facility]07-03-2023 Note. MICRO - Microbiology PROCEDURE: Blood Culture [...] Locations *1: This test was performed at: [address], [address] [place] [address] ([place])07-01-2023 Note. MICRO - Microbiology PROCEDURE: Urine Culture [...] Locations *1: This test was performed at: [facility], [address] [place] [address], [phone]- , [facility] ([place])06-28-2023 Hospital Discharge instructions Patient Education 06/28/2023 16:03:23 [...] that gets worse Trouble urinating Constipation Vomiting 0730-1707 [employer]. [address] [place] [address], [place] [address]. All rights reserved. This information is not intended as a substitute for professional medical care. Always follow yourhealthcare professional's instructions. Follow Up Care 06/28/2023 13:49:11 With:AARON DUQUE MD, Surgery Address: [address] [place] [address] [phone] When:2-4 days With:[facility] Address: [address] [place] [phone] When:2-4 days [facility] 01-13-2024 Note Discharge Instructions Thank you for allowing [facility] to assist you with your healthcare needs. [...] Surgery When Within 2-4 days Where: [address] [place] [address] [phone] Follow Up with [facility] When Within 2-4 days Where: [address] [place] [phone] Allergies Keflex Keppra (Rash) Tape, Paper (Rash) [...] that gets worse Trouble urinating Constipation Vomiting 7634-5280 [employer]. [address] [place] [address], [place] [address]. All rights reserved. This information is not intended as a substitute for professional medical care. Always follow yourhealthcare professional's instructions. Additional Information VACCINATE! IT SAVES LIVES! Members of the community who have not yet received the COVID-19 vaccine and would like to receive it can visit one of [facility] vaccine clinics. There are many vaccine clinic locations within the [facility]. For locations and available times, please visit www.[email or web address].[place].gov/. It is important to note that some COVID mobile vaccine clinics are held outdoors and may be canceled in rainy or stormy conditions. To learn more about pediatric vaccinations (ages 5-11), we invite you to visit the [facility] webpage. https://www.[facility].org/pages/8637-Cluxq-Pqznbxzkchy-Koqciwbstd-Yoyya-Zoj stions.htmlTo learn more about the COVID-19 vaccine, we invite you to visit the CDC website for a list of frequently asked questions. https://www.cdc.gov/coronavirus/2019-ncov/vaccines/faq.html [facility] Patient Portal Access Instructions: Stay connected with your healthcare team and access your personal medical information anytime with the [facility] Patient Portal. If you would like a full copy of your medical records please contact the [facility] Medical Records Department Friday through Friday between 8a.m. and 4:30p.m. Please follow the directions below to access the portal: 1.Access the email account you provided upon registration to the [facility].2.Look for an invitation email from [facility].3.Open the email and access the invitation link: Accept Invitation to [facility]4.Fill in the required vegas to create your account. Sign into [email or web address] with your username and password that you [...] you will allow to register on the [facility] Patient Portal for access to your information. You can also access the [facility] Patient Portal on the eSNF randal. Simply click on Health Records under 121cast and then click on the Brett logo. [...] Call your local pharmacy or go to http://WorldViz.GetAutoBids/4I4Rn6z to find one close to you.3.Make use of household items: Use cat litter or old coffee grounds to dispose medications if other options arenot available. Mix your drugs with these household products, seal them in an airtight container andthrow it into the garbage. Call [facility]: [phone] to be sure your drugs can be [...] aware that I should contact my doctor. Patient/Sap Security Architect Signature: Date/Time: Relationship to Patient: Witness Name/Signature: Date/Time: [facility]01-13-2024 Note ORIGINAL EXAMINATION: CT OF THE [...] Date: 06/28/2023 4:25:43 PM Ordering [facility] Evaluation + Plan note Diagnostic Tests Pending * [facility] Discharge instructions Patient Education 06/08/2023 [...] foods again, start with small amounts of yhct-ii-kgahbb, low- fat foods. These include apple sauce, [...] increase stomach acid. Don't use aspirin or lpmv-wfs-oyrceqx pain and fever medicines, if possible. This includes nonsteroidal anti-inflammatory drugs (NSAIDs). Lose excess weight. Finish eating at least 2 hours before you go to bed or lie down. Raise the head of your bed. 7396-5196 [employer]. [address] [place] [address]. All rights reserved. This information is not intended as a substitute for professional medical care. Always follow yourhealthcare professional's instructions. Follow Up Care 06/08/2023 17:37:31 With:Follow up with primary care provider Address:Unknown When:2-4 days [facility] 12-24-2023 Note Discharge Instructions Thank you for allowing [facility] to assist you with your healthcare needs. [...] to receive it can visit one of [facility] vaccine clinics. There are many vaccine clinic locations within the [facility]. For locations and available times, please visit www.[email or web address].[place].gov/. It is important to note that some COVID mobile vaccine clinics are held outdoors and may be canceled in rainy or stormy conditions. To learn more about pediatric vaccinations (ages 5-11), we invite you to visit the [facility] webpage. https://www.[facility].org/pages/5769-Gefpj-Eiscnqrdcer-Kxfcjydwjp-Xjhlp-Tdk stions.htmlTo learn more about the COVID-19 vaccine, we invite you to visit the CDC website for a list of frequently asked questions. https://www.cdc.gov/coronavirus/2019-ncov/vaccines/faq.html [facility] Patient Portal Access Instructions: Stay connected with your healthcare team and access your personal medical information anytime with the [facility] Patient Portal. If you would like a full copy of your medical records please contact the [facility] Medical Records Department Friday through Friday between 8a.m. and 4:30p.m. Please follow the directions below to access the portal: 1.Access the email account you provided upon registration to the [facility].2.Look for an invitation email from [facility].3.Open the email and access the invitation link: Accept Invitation to [facility]4.Fill in the required vegas to create your [...] you will allow to register on the [facility] Patient Portal for access to your information. You can also access the [facility] Patient Portal on the [employer]. Simply click on Health Records under 121cast and then click on the Brett logo. [...] Call your local pharmacy or go to http://WorldViz.GetAutoBids/2Z9Yk1x to find one close to you.3.Make use of household items: Use cat litter or old coffee grounds to dispose medications if other options arenot available. Mix your drugs with these household products, seal them in an airtight container andthrow it into the garbage. Call [facility]: [phone] to be sure your drugs can be [...] aware that I should contact my doctor. Patient/Sap Security Architect Signature: Date/Time: Relationship to Patient: Witness Name/Signature: Date/Time: [facility]12-02-2023 Hospital Discharge instructions Patient Education 05/16/2023 23:04:20 AA Blank DI (CUSTOM) Result type:CT Abd/Pelvis w/ IV Contrast Only Result date:May 16, 2023 21:13 EST Result status:Auth (Verified) Result title:CT ABD/PELVIS W/ IV CONTRAST ONLY Performed by:CHLOE LUKE MD on May 16, 2023 21:06 EST Cosigned by:LAURA MABRY DO Verified by:CHLOE LUKE MD on May 16, 2023 21:13 EST Encounter info:[id number], BRETT CALIX, Emergency, 05/16/2023 - Contributor system:[employer] * Final Report * [id number] ORIGINAL EXAMINATION: CT OF THE ABDOMEN AND [...] Document Reviewed: 06/03/2014 ExitCare Patient Information 2015 [employer]. This information is not intended to replace [...] color of the hand or foot [employer]. [address] [place] [address]. All rights reserved. This information is not [...] Fainting or loss of consciousness Seizure [employer]. [address] [place], [place] [address]. All rights reserved. This information is not [...] foods again, start with small amounts of ewad-lg-etfced, low- fat foods. These include apple sauce, [...] increase stomach acid. Don't use aspirin or xprj-dua-qmcqkbo pain and fever medicines, if possible. This includes nonsteroidal anti-inflammatory drugs (NSAIDs). Lose excess weight. Finish eating at least 2 hours before you go to bed or lie down. Raise the head of your bed. 1172-0576 [employer]. [address] [place] [address]. All rights reserved. This information is not intended as a substitute for professional medical care. Always follow yourhealthcare professional's instructions. Follow Up Care 05/16/2023 20:02:25 With:Go to emergency room if symptoms worsen Address:Unknown When:2-4 days With:Follow up with primary care provider Address:Unknown When:2-4 days [facility] 12-01-2023 Note ORIGINAL EXAMINATION: CT OF [...] Sign Date: 05/16/2023 10:45:51 PM Ordering Provider: [facility]08-30-2023 Hospital Discharge instructions Patient Education 02/12/2023 [...] chest, arm, back, neck or jaw pain 7683-8816 [employer]. [address] [place] [address], [place] [address]. All rights reserved. This information is not intended as a substitute for professional medical care. Always follow yourhealthcare professional's instructions. Follow Up Care 02/12/2023 17:22:30 With:AARON DUQUE Address: [address] [place] [phone] Business (1) When:2-4 days With:NONE PHYSICIAN Address:Unknown When:2-4 days [facility] 08-30-2023 Emergency department Discharge summary Discharge Instructions Thank you for allowing [facility] to assist you with your healthcare needs. The following is importantdischarge information regarding your hospital visit. Diagnosis from Today's Visit Abdominal pain What to Do Next Instructions from Your Care Team No qualifying data available. Post Acute Orders No qualifying data available. You Need to Schedule the Following Appointments Follow Up with AARON DUQUE When Within 2-4 days Where: [address] [place] [address] [phone] Business (1) Follow Up with NONE PHYSICIAN [...] chest, arm, back, neck or jaw pain 4720-9775 [employer]. [address] [place] [address], [place] [address]. All rights reserved. This information is not intended as a substitute for professional medical care. Always follow yourhealthcare professional's instructions. Additional Information VACCINATE! IT SAVES LIVES! Members of the community who have not yet received the COVID-19 vaccine and would like to receive it can visit one of [facility] vaccine clinics. There are many vaccine clinic locations within the [facility]. For locations and available times, please visit www.gettheshot.coronavirus.[place].gov/. It is important to note that some COVID mobile vaccine clinics are held outdoors and may be canceled in rainy or stormy conditions. To learn more about pediatric vaccinations (ages 5-11), we invite you to visit the [facility] webpage. https://www.[facility].org/pages/6163-Srrlt-Pmvicevzbav-Vxzklqdqad-Hwvti-Dnp stions.htmlTo learn more about the COVID-19 vaccine, we invite you to visit the CDC website for a list of frequently asked questions. https://www.cdc.gov/coronavirus/2019-ncov/vaccines/faq.html [facility] Patient Portal Access Instructions: Stay connected with your healthcare team and access your personal medical information anytime with the [facility] Patient Portal. If you would like a full copy of your medical records please contact the [facility] Medical Records Department Friday through Friday between 8a.m. and 4:30p.m. Please follow the directions below to access the portal: 1.Access the email account you provided upon registration to the hospital.2.Look for an invitation email from [facility].3.Open the email and access the invitation link: Accept Invitation to [facility]4.Fill in the required vegas to create your account. Sign into [email or web address] with your username and password that you [...] you will allow to register on the [employer] Patient Portal for access to your information. You can also access the [facility] Patient Portal on the eSNF randal. Simply click on Health Records under 121cast and then click on the [employer] logo. HOW TO SAFELY DISPOSE OF PRESCRIPTION [...] Call your local pharmacy or go to http://WorldViz.GetAutoBids/9U7Ha0z to find one close to you.3.Make use of household items: Use cat litter or old coffee grounds to dispose medications if other options arenot available. Mix your drugs with these household products, seal them in an airtight container andthrow it into the garbage. Call [facility]: [phone] to be sure your drugs can be [...] aware that I should contact my doctor. Patient/Sap Security Architect Signature: Date/Time: Relationship to Patient: Witness Name/Signature: Date/Time: [facility]08-30-2023 Emergency department Discharge summary Discharge Instructions Thank you for allowing [facility] to assist you with your healthcare needs. The following is importantdischarge information regarding your hospital visit. Diagnosis from Today's Visit Abdominal pain What to Do Next Instructions from Your Care Team No qualifying data available. Post Acute Orders No qualifying data available. You Need to Schedule the Following Appointments Follow Up with AARON DUQUE When Within 2-4 days Where: [address] [facility] [place] [address]- [phone] Business (1) Follow Up with NONE PHYSICIAN [...] chest, arm, back, neck or jaw pain 9979-0425 [employer]. [address] [place] [address]. All rights reserved. This information is not intended as a substitute for professional medical care. Always follow yourhealthcare professional's instructions. Additional Information VACCINATE! IT SAVES LIVES! Members of the community who have not yet received the COVID-19 vaccine and would like to receive it can visit one of [facility] vaccine clinics. There are many vaccine clinic locations within the [facility]. For locations and available times, please visit www.gettheshot.[email or web address].[place].gov/. It is important to note that some COVID mobile vaccine clinics are held outdoors and may be canceled in rainy or stormy conditions. To learn more about pediatric vaccinations (ages 5-11), we invite you to visit the [facility] webpage. https://www.[facility].org/pages/6486-Maeza-Sgxbnltgclv-Xynawvrcfv-Vbaup-Ftk stions.htmlTo learn more about the COVID-19 vaccine, we invite you to visit the CDC website for a list of frequently asked questions. https://www.cdc.gov/coronavirus/2019-ncov/vaccines/faq.html [facility] Patient Portal Access Instructions: Stay connected with your healthcare team and access your personal medical information anytime with the [facility] Patient Portal. If you would like a full copy of your medical records please contact the [facility] Medical Records Department Friday through Friday between 8a.m. and 4:30p.m. Please follow the directions below to access the portal: 1.Access the email account you provided upon registration to the [facility].2.Look for an invitation email from [facility].3.Open the email and access the invitation link: Accept Invitation to [facility]4.Fill in the required vegas to create your account. Sign into [email or web address] with your username and password that you [...] you will allow to register on the [facility] Patient Portal for access to your information. You can also access the [facility] Patient Portal on the [employer]. Simply click on Health Records under 121cast and then click on the [employer] logo. HOW TO SAFELY DISPOSE OF PRESCRIPTION [...] Call your local pharmacy or go to http://WorldViz.GetAutoBids/2T9Iz8t to find one close to you.3.Make use of household items: Use cat litter or old coffee grounds to dispose medications if other options arenot available. Mix your drugs with these household products, seal them in an airtight container andthrow it into the garbage. Call [facility]: [phone] to be sure your drugs can be [...] aware that I should contact my doctor. Patient/Sap Security Architect Signature: Date/Time: Relationship to Patient: Witness Name/Signature: Date/Time: [facility]08-30-2023 Note ORIGINAL EXAMINATION: CT OF THE [...] Date: 02/12/2023 8:10:54 PM Ordering Provider: [facility]08-30-2023 Note Sinus rhythm RSR' in V1 or V2, probably normal variant Baseline wander in lead(s) II,III,aVF,V2 Compared to ECG at 03/08/2018 23:11:38 BORDERLINE ECG Electronic Signature: ANJLE PEÑA DO 02/12/2023 17:53:40[facility] 05-16-2023 NoteORIGINAL PROCEDURE: Fluoroscopic drainage catheter evaluation (Abscessogram) performed on 10/28/2022. INDICATION: LLQ seroma s/p drain and sclerosis. The patient reports minimal drainage recently. COMPARISON: 10/21/2022. TECHNIQUE/FINDINGS: The procedure was performed in the VIR Suite with the patient in the supine position. A satellite dish technician image demonstrated position of the existing percutaneous [...] Sign Date: 10/29/2022 10:35:26 AM Ordering Provider: [facility] ([place]) 10-29-2022 NoteORIGINAL PROCEDURE: Ultrasound guided percutaneous drainage [...] Sign Date: 10/29/2022 10:32:48 AM Ordering Provider: [facility] ([place])10-28-2022 History and physical note IR PREPROCEDURE H&P [...] 10/10/2022 and can be found in the [facility] Electronic Medical Records ([facility]). Roshni Flores PA-C Interventional Radiology Pager [phone] IR Dept [id number] [facility] on [facility] Digitally Signed by ROSHNI FLORES PA-C on 10/28/2022 05:27 PM [id number] Note* Farrah Mcallister RN: SIGN, AUTHOR, SIGN, AUTHOR, PERFORM Event Display: IR Procedure Record Authored Date: [id number] IR Procedure Record Summary Primary Physician: Finalized Date/Time: 10/28/22 15:00:43 Pt. Name: PATRICK KOROMA/Sex: 1980 Male Med Rec #: [id number] Physician: Financial #: [id number] Pt. Type: O Room/Bed: / Admit/Disch: 10/28/22 [...] 2 Entry 3 [facility] Attend[facility] Topographical Drafter Vanessa, Brandie Remy Topographical Drafter Role Performed Radiologist Procedure Scrub Technologist Circulating [...] Case Attendee Farrah Mcallister RN Role Performed Mud Engineer 1 Details Time In 10/28/22 14:40:00 [...] mL Medication OMNIPAQUE 300 50ML 10/PK Y-530 [facility] [id number] Radiology Flouroscopy Fluoroscopy Used? Yes Fluoro Dose [...] and site marked, Present for Time Out Sierra Goff Relevant images and Vanessa Celeste, results are properly Brandie Sellers, labeled and Farrah Mcallister RN appropriately displayed, Alcohol based prep dry Instrument Sterility Procedure IR Drainage Cath Removal Fluoro Guide SN Last Modified By: Farrah Mcallister RN 10/28/22 14:56:00 Skin Prep- IR Entry 1 Procedure IR Drainage Cath Removal Fluoro Guide SN Skin Prep Prep Area Abdomen Side Left By Sierra Goff Prep Agents Chloraprep Marta Remy Hair [...] Radiology - Action Plan Outcomes Met? Yes Stitch Burnisher Farrah Mcallister RN Completing Procedure Plan Last Modified By: Farrah Mcallister RN 10/28/22 14:51:12 Case Comments <None> Finalized By: Farrah Mcallister RN Document Signatures Signed By: Farrah Mcallister RN 10/28/22 14:58 Farrah Mcallister RN 10/28/22 15:00 [facility] 05-15-2023 Hospital Discharge instructions Patient Education 10/28/2022 14:57:53 Radiology- Procedure/Biopsy 09/29/2019 (CUSTOM) MOORE Radiology Procedure/Biopsy Discharge Instructions Interventional Radiology [facility] [address] [address] Today, you had a . This procedure/biopsy [...] 1 to 2 days following the procedure. Pisv-cgi-elpmico pain medication should be used for pain [...] instruction below: 8:00 am- 5:00 pm call [phone] After 5:00 pm call [phone] After 24 hours, contact the physician who [...] with primary care provider Address:Unknown When: Unknown [facility] 05-15-2023 Note IR Procedure Record Summary Primary Physician: Finalized Date/Time: 10/28/22 15:00:43 Pt. Name: PATRICK KOROMA/Sex: 1980 Male Med Rec #: [id number] Physician: Financial #: [id number] Pt. Type: O Room/Bed: / Admit/Disch: 10/28/22 [...] Entry 3 Case Attendee ESAU LOVE MD Topographical Drafter Brandie Mendez Topographical Drafter Role Performed Radiologist Procedure Scrub Technologist Circulating Technologist Details Time In 10/28/22 14:52:00 10/28/22 14:40:00 10/28/22 14:40:00 Time Out 10/28/22 15:02:00 10/28/22 15:02:00 10/28/22 15:02:00 Procedure/Preference IR Drainage Cath IR Drainage Cath IR Drainage Cath Card Removal Fluoro Guide SN Removal Fluoro Guide SN Removal Fluoro Guide SN Last Modified By: Farrah Mcallister RN Farrah Mcallister RN Farrah Mcallister RN 10/28/22 14:58:01 10/28/22 14:58:01 10/28/22 14:58:01 Entry 4 Case Attendee Farrah Mcallister RN Role Performed Mud Engineer 1 Details Time In 10/28/22 14:40:00 [...] mL Medication OMNIPAQUE 300 50ML 10/PK Y-530 [facility] [id number] Radiology Flouroscopy Fluoroscopy Used? Yes Fluoro Dose [...] and site marked, Present for Time Out Sierra Goff Relevant images and Vanessa Celeste, results are properly Terra Devang Sellers, labeled and Farrah Mcallister RN appropriately displayed, Alcohol based prep dry Instrument Sterility Procedure IR Drainage Cath Removal Fluoro Guide SN Last Modified By: Farrah Mcallister RN 10/28/22 14:56:00 Skin Prep- IR Entry 1 Procedure IR Drainage Cath Removal Fluoro Guide SN Skin Prep Prep Area Abdomen Side Left By Sierra Goff Prep Agents Chloraprep Marta Remy Hair [...] Radiology - Action Plan Outcomes Met? Yes Stitch Burnisher Farrah Mcallister RN Completing Procedure Plan Last Modified By: Farrah Mcallister RN 10/28/22 14:51:12 Case Comments Finalized By: Farrah Mcallister RN Document Signatures Signed By: Farrah Mcallister RN 10/28/22 14:58 Farrah Mcallister RN 10/28/22 15:00 [id number] Summary of episode note Discharge Instructions Thank you for allowing [place] to assist you with your healthcare needs. [...] medication providers or retail pharmacies. Education Materials MOORE Radiology Procedure/Biopsy Discharge Instructions Interventional Radiology [facility] [address] [place] [address] Today, you had a . This procedure/biopsy [...] 1 to 2 days following the procedure. Gmfp-cbo-ajzzkbd pain medication should be used for pain [...] instruction below: 8:00 am- 5:00 pm call [phone] After 5:00 pm call [phone] After 24 hours, contact the physician who [...] to receive it can visit one of [facility] vaccine clinics. There are many vaccine clinic locations within the [facility]. For locations and available times, please visit [email or web address]/. It is important to note that some COVID mobile vaccine clinics are held outdoors and may be canceled in rainy or stormy conditions. To learn more about pediatric vaccinations (ages 5-11), we invite you to visit the [facility] webpage. https://www.[facility].org/pages/3308-Lrgic-Ehrudxcvmvr-Bulqwfgdsv-Xtsws-Uhk stions.htmlTo learn more about the COVID-19 vaccine, we invite you to visit the CDC website for a list of frequently asked questions.https://www.cdc.gov/coronavirus/2019-ncov/vaccines/faq.html [facility] Patient Portal Access Instructions: Stay connected with your healthcare team and access your personal medical information anytime with the [employer] Patient Portal. Please follow the directions below to create your [employer] account: 1.Access the email account you provided upon registration to the hospital/physician office.2.Look for an invitation email from [facility].3.Open the email and access the invitation link: AcceptInvitation to [employer].4.Fill in the required vegas to create your account. To access your account, visit [email or web address]. Click the blue button labeled Access Patient [...] who you will allowto register on the [place] [employer] Patient Portal for access to your information. You can also access the [place] [facility] Patient Portal on the [place] [facility] randal. Simply click on Patient Portal and then log into your account. If you would like to receive a full copy of your medical records, please contact the [facility] Medical Records Department by calling [phone], Friday through Friday between 8 a.m. and [...] Call your local pharmacy or go to http://WorldViz.GetAutoBids/0H3Mc5t to find one close to you.3.Make use of household items: Use cat litter or old coffee grounds to dispose medications if other options arenot available. Mix your drugs with these household products, seal them in an airtight container andthrow it into the garbage. Call [facility]: [phone] to be sure your drugs can be [...] aware that I should contact my doctor. Patient/Sap Security Architect Signature: Date/Time: Relationship to Patient: Witness Name/Signature: Date/Time: [id number] Evaluation + Plan noteExtracted from: Title:Preprocedure HP [...] 10/10/2022 and can be found in the [place] Electronic Medical Records ([employer]). Roshni Flores PA-C Interventional Radiology Pager [phone] IR Dept [id number] Available on naaptol Future Scheduled Tests Laboratory* Basic Metabolic Panel 11/23/21 * Carbamazepine Level 11/23/21 * Complete Metabolic Panel 11/23/21 [facility] 05-15-2023 Hospital Discharge instructions Patient Education [...] come back to this facility in person. [phone] [employer]. [address] [place] [address], [place] [address]. All rights reserved. This information is not intended as a substitute for professional medical care. Always follow yourhealthcare professional's instructions. Follow Up Care 10/28/2022 01:29:29 With:The IR department at [facility] Address:Unknown When:Within 1 Day(s) Comments:Follow-up as scheduled later today to have the drain removed.Return to the ED for any problems or concerns. [facility] 05-15-2023 Note Discharge Instructions Thank you for allowing [place] to assist you with your healthcare needs. The following is importantdischarge information regarding your hospital visit. Diagnosis from Today's Visit Drain Problem Drain leakage What to Do Next Instructions from Your Care Team No qualifying data available. Post Acute Orders No qualifying data available. You Need to Schedule the Following Appointments Follow Up with The IR department at [facility] When In 1 day Why: Follow-up [...] come back to this facility in person. [phone] [employer]. [address] [place] [address]. All rights reserved. This information is not intended as a substitute for professional medical care. Always follow yourhealthcare professional's instructions. Additional Information VACCINATE! IT SAVES LIVES! Members of the community who have not yet received the COVID-19 vaccine and would like to receive it can visit one of [facility] vaccine clinics. There are many vaccine clinic locations within the [facility]. For locations and available times, please visit www.[email or web address].[place].gov/. It is important to note that some COVID mobile vaccine clinics are held outdoors and may be canceled in rainy or stormy conditions. To learn more about pediatric vaccinations (ages 5-11), we invite you to visit the [facility] webpage. https://www.[facility].org/pages/4829-Hgesx-Frawkgfjzfd-Qgtybxyjey-Lilfi-Lwb stions.htmlTo learn more about the COVID-19 vaccine, we invite you to visit the CDC website for a list of frequently asked questions. https://www.cdc.gov/coronavirus/2019-ncov/vaccines/faq.html [facility] Patient Portal Access Instructions: Stay connected with your healthcare team and access your personal medical information anytime with the [facility] Patient Portal. If you would like a full copy of your medical records please contact the [facility] Medical Records Department Friday through Friday between 8a.m. and 4:30p.m. Please follow the directions below to access the portal: 1.Access the email account you provided upon registration to the [facility].2.Look for an invitation email from [facility].3.Open the email and access the invitation link: Accept Invitation to [facility]4.Fill in the required vegas to create your account. Sign into [email or web address] with your username and password that you [...] you will allow to register on the [facility] Patient Portal for access to your information. You can also access the [place] [employer] Patient Portal on the [employer]. Simply click on Health Records under 121cast and then click on the DriverSide logo. HOW TO SAFELY DISPOSE OF PRESCRIPTION [...] Call your local pharmacy or go to http://WorldViz.GetAutoBids/6J9Lw0y to find one close to you.3.Make use of household items: Use cat litter or old coffee grounds to dispose medications if other options arenot available. Mix your drugs with these household products, seal them in an airtight container andthrow it into the garbage. Call [facility]: [phone] to be sure your drugs can be [...] aware that I should contact my doctor. Patient/Sap Security Architect Signature: Date/Time: Relationship to Patient: Witness Name/Signature: Date/Time: [facility]05-15-2023 Note Discharge Instructions Thank you for allowing [place] to assist you with your healthcare needs. The following is importantdischarge information regarding your hospital visit. Diagnosis from Today's Visit Drain Problem Drain leaking What to Do Next Instructions from Your Care Team No qualifying data available. Post Acute Orders No qualifying data available. You Need to Schedule the Following Appointments Follow Up with The IR department at [facility] When In 1 day Why: Follow-up [...] come back to this facility in person. [phone] [employer]. [address] [place] [address], [place] [address]. All rights reserved. This information is not intended as a substitute for professional medical care. Always follow yourhealthcare professional's instructions. Additional Information VACCINATE! IT SAVES LIVES! Members of the community who have not yet received the COVID-19 vaccine and would like to receive it can visit one of [facility] vaccine clinics. There are many vaccine clinic locations within the [facility]. For locations and available times, please visit www.gettheshot.[email or web address].[place].gov/. It is important to note that some COVID mobile vaccine clinics are held outdoors and may be canceled in rainy or stormy conditions. To learn more about pediatric vaccinations (ages 5-11), we invite you to visit the [facility] webpage. https://www.[employer].org/pages/0210-Uhume-Ckwszkpxtzg-Gujzipqgma-Fixmz-Ukr stions.htmlTo learn more about the COVID-19 vaccine, we invite you to visit the CDC website for a list of frequently asked questions. https://www.cdc.gov/coronavirus/2019-ncov/vaccines/faq.html [place] [facility] Patient Portal Access Instructions: Stay connected with your healthcare team and access your personal medical information anytime with the [facility] Patient Portal. If you would like a full copy of your medical records please contact the [facility] Medical Records Department Friday through Friday between 8a.m. and 4:30p.m. Please follow the directions below to access the portal: 1.Access the email account you provided upon registration to the hospital.2.Look for an invitation email from [facility].3.Open the email and access the invitation link: Accept Invitation to [facility]4.Fill in the required vegas to create your account. Sign into [email or web address] with your username and password that you [...] you will allow to register on the [employer] Patient Portal for access to your information. You can also access the [employer] Patient Portal on the [employer]. Simply click on Health Records under 121cast and then click on the DriverSide logo. HOW TO SAFELY DISPOSE OF PRESCRIPTION [...] Call your local pharmacy or go to http://WorldViz.GetAutoBids/7J7Vo2p to find one close to you.3.Make use of household items: Use cat litter or old coffee grounds to dispose medications if other options arenot available. Mix your drugs with these household products, seal them in an airtight container andthrow it into the garbage. Call [facility]: [phone] to be sure your drugs can be [...] aware that I should contact my doctor. Patient/Sap Security Architect Signature: Date/Time: Relationship to Patient: Witness Name/Signature: Date/Time: [facility]05-15-2023 Note Discharge Instructions Thank you for allowing [place] to assist you with your healthcare needs. The following is importantdischarge information regarding your hospital visit. Diagnosis from Today's Visit Drain Problem Drain leaking What to Do Next Instructions from Your Care Team No qualifying data available. Post Acute Orders No qualifying data available. You Need to Schedule the Following Appointments Follow Up with The IR department at [facility] When In 1 day Why: Follow-up [...] come back to this facility in person. [phone] [employer]. [address] [place] [address]. All rights reserved. This information is not intended as a substitute for professional medical care. Always follow [facility] professional's instructions. Additional Information VACCINATE! IT SAVES LIVES! Members of the community who have not yet received the COVID-19 vaccine and would like to receive it can visit one of [facility] vaccine clinics. There are many vaccine clinic locations within the [facility]. For locations and available times, please visit www.gettheshot.coronavirus.[place].gov/. It is important to note that some COVID mobile vaccine clinics are held outdoors and may be canceled in rainy or stormy conditions. To learn more about pediatric vaccinations (ages 5-11), we invite you to visit the [facility] webpage. https://www.[facility].org/pages/4183-Gfzxh-Kxpbplpegnc-Omgxjpklhg-Slodm-Tqz stions.htmlTo learn more about the COVID-19 vaccine, we invite you to visit the CDC website for a list of frequently asked questions. https://www.cdc.gov/coronavirus/2019-ncov/vaccines/faq.html [facility] Patient Portal Access Instructions: Stay connected with your healthcare team and access your personal medical information anytime with the [facility] Patient Portal. If you would like a full copy of your medical records please contact the [facility] Medical Records Department Friday through Friday between 8a.m. and 4:30p.m. Please follow the directions below to access the portal: 1.Access the email account you provided upon registration to the [facility].2.Look for an invitation email from [facility].3.Open the email and access the invitation link: Accept Invitation to [facility]4.Fill in the required vegas to create your account. Sign into [email or web address] with your username and password that you [...] you will allow to register on the [facility] Patient Portal for access to your information. You can also access the [employer] Patient Portal on the [employer]. Simply click on Health Records under 121cast and then click on the DriverSide logo. HOW TO SAFELY DISPOSE OF PRESCRIPTION [...] Call your local pharmacy or go to http://WorldViz.GetAutoBids/5V9Rx5o to find one close to you.3.Make use of household items: Use cat litter or old coffee grounds to dispose medications if other options arenot available. Mix your drugs with these household products, seal them in an airtight container andthrow it into the garbage. Call [facility]: [phone] to be sure your drugs can be [...] aware that I should contact my doctor. Patient/Sap Security Architect Signature: Date/Time: Relationship to Patient: Witness Name/Signature: Date/Time: [facility]05-08-2023 Evaluation + Plan noteExtracted from: Title:Preprocedure [...] 10/10/2022 and can be found in the [place] Electronic Medical Records ([facility]). Roshni Flores PA-C Interventional Radiology Pager [phone] IR Dept [id number] Available on [facility] Future Appointments Appointment Date:10/28/2022 01:00:00 PM Scheduled Provider: Location:IR Appointment Type:IR Drainage Cath Injection for Eval Future Scheduled Tests Laboratory* Basic Metabolic Panel 11/23/21 * Carbamazepine Level 11/23/21 * Complete Metabolic Panel 11/23/21 [facility] 05-08-2023 Note* Farrah Mcallister RN: SIGN, AUTHOR, SIGN, AUTHOR, SIGN, AUTHOR, PERFORM Event Display: IR Procedure Record Authored Date: [id number] IR Procedure Record Summary Primary Physician: Finalized Date/Time: 10/21/22 10:43:31 Pt. Name: PATRICK KOROMA/Sex: 1980 Male Med Rec #: [id number] Physician: Financial #: [id number] Pt. Type: O Room/Bed: / Admit/Disch: 10/21/22 [...] Attendee ESAU LOVE MD, Brittaney RN [facility] Topographical DrafterVerito Remy Role Performed Radiologist Procedure Mud Engineer 1 Scrub Technologist Details Time In 10/21/22 10:25:00 10/21/22 09:58:00 10/21/22 09:58:00 Time Out 10/21/22 10:38:00 10/21/22 10:38:00 10/21/22 10:38:00 Procedure/Preference IR Sclerotherapy SN IR Sclerotherapy SN IR Sclerotherapy SN Card Last Modified By: Farrah Mcallister RN, Brittaney RN Magee, Brittaney RN 10/21/22 10:38:11 10/21/22 10:38:11 10/21/22 10:38:11 Entry 4 Case Attendee Sierra Kelley Role Performed Circulating Technologist Details Time [...] Out Farrah Mcallister RN, Relevant images and HultSierra lopez results are properly Marta Remy, Sierra Kelley and Tech Мария L appropriately displayed, Alcohol based prep dry Instrument Sterility Procedure IR Sclerotherapy SN Last Modified By: Farrah Mcallister RN 10/21/22 10:25:37 Skin Prep- IR Entry 1 Procedure IR Sclerotherapy SN Skin Prep Prep Area Abdomen Side Left By Sierra Goff Prep Agents Chloraprep Marta Remy Hair Removal Method Clipped Last Modified [...] Radiology - Action Plan Outcomes Met? Yes Stitch Burnisher Farrah Mcallister RN Completing Procedure Plan Last Modified By: Fararh Mcallister RN 10/21/22 10:06:38 Transfer Post Procedure- IR Entry 1 RAD - Transport to Recovery Via Ambulatory Post-op Destination Receiving Transported By Sierra Kelley Post Procedure Time Out Double Verification Yes Date/Time Verified 10/21/22 10:37:00 of ID band on patient Completed Verfied ID Band on Farrah Mcallister RN by Last Modified By: Farrah Mcallister RN 10/21/22 10:38:07 Case Comments <None> Finalized By: Farrah Mcallister RN Document Signatures Signed By: Farrah Mcallister RN 10/21/22 10:38 Farrah Mcallister RN 10/21/22 10:38 Farrah Mcallister RN 10/21/22 10:43 [facility] 05-08-2023 Note IR Procedure Record Summary Primary Physician: Finalized Date/Time: 10/21/22 10:43:31 Pt. Name: PATRICK KOROMA /Sex: 1980 Male Med Rec #: [id number] Physician: Financial #: [id number] Pt. Type: O Room/Bed: / Admit/Disch: 10/21/22 [...] Tech Amanda K Role Performed Radiologist Procedure Mud Engineer 1 Scrub Technologist Details Time In 10/21/22 10:25:00 10/21/22 09:58:00 10/21/22 09:58:00 Time Out 10/21/22 10:38:00 10/21/22 10:38:00 10/21/22 10:38:00 Procedure/Preference IR Sclerotherapy SN IR Sclerotherapy SN IR Sclerotherapy SN Card Last Modified By: Farrah Mcallister RN, Brittaney RN Magee, Brittaney RN 10/21/22 10:38:11 10/21/22 10:38:11 10/21/22 10:38:11 Entry 4 Case Attendee Sierra Kelley Role Performed Circulating Technologist Details Time [...] Out Farrah Mcallister RN, Relevant images and Sierra Goff results are properly Allie Celeste Rad labeled and Tech Мария L appropriately displayed, Alcohol based prep dry Instrument Sterility Procedure IR Sclerotherapy SN Last Modified By: Farrah Mcallister RN 10/21/22 10:25:37 Skin Prep- IR Entry 1 Procedure IR Sclerotherapy SN Skin Prep Prep Area Abdomen Side Left By Sierra Goff Prep Agents Chloraprep Marta Remy Hair Removal Method Clipped Last Modified [...] Radiology - Action Plan Outcomes Met? Yes Stitch Burnisher Farrah Mcallister RN Completing Procedure Plan Last Modified By: Farrah Mcallister RN 10/21/22 10:06:38 Transfer Post Procedure- IR Entry 1 RAD - Transport to Recovery Via Ambulatory Post-op Destination Receiving Transported By Sierra Kelley Мария L Post Procedure Time Out Double Verification Yes Date/Time Verified 10/21/22 10:37:00 of ID band on patient Completed Verfied ID Band on Farrah Mcallister RN by Last Modified By: Farrah Mcallister RN 10/21/22 10:38:07 Case Comments Finalized By: Farrah Mcallister RN Document Signatures Signed By: Farrah Mcallister RN 10/21/22 10:38 Farrah Mcallister RN 10/21/22 10:38 Farrah Mcallister RN 10/21/22 10:43 [id number] History and physical note IR PREPROCEDURE H&P [...] 10/10/2022 and can be found in the [place] Electronic Medical Records ([facility]). Roshni Flores PA-C Interventional Radiology Pager [phone] IR Dept [id number] Available on [employer] Digitally Signed by ROSHNI FLORES PA-C on 10/21/2022 09:38 AM Digitally Signed by ESAU LOVE MD on 10/21/2022 10:20 AM [id number] Note* Juliocesar Mo Topographical Drafter: SIGN, AUTHOR, PERFORM Event Display: IR Procedure Record Authored Date: [id number] IR Procedure Record Summary Primary Physician: RAMIN SAMPSNO MD Finalized Date/Time: 09/12/22 14:34:18 Pt. Name: PATRICK KOROMA/Sex: 1980 Male Med Rec #: [id number] Physician: Financial #: [id number] Pt. Type: O Room/Bed: / Admit/Disch: 09/12/22 [...] SAMPSON MD, Alexis Tech Fierstos, Megan R Topographical Drafter Role Performed Primary Surgeon Scrub Technologist Circulating Technologist Details Time In 09/12/22 14:14:00 09/12/22 14:10:00 09/12/22 14:10:00 Time Out 09/12/22 14:30:00 09/12/22 14:30:00 09/12/22 14:30:00 Procedure/Preference IR Drainage Cath IR Drainage Cath IR Drainage Cath Card Injection for Eval SN Injection for Eval SN Injection for Eval SN Last Modified By: Juliocesar Mo Rad Juliocesar Mo Rad Alek Mon R Topographical Drafter 09/12/22 14:30:28 Tech 09/12/22 14:30:28 Tech 09/12/22 14:30:28 Entry 4 Case Attendee Brandie Mendez Topographical Drafter Role Performed Mud Engineer 1 Details Time In 09/12/22 14:10:00 Time Out 09/12/22 14:30:00 Procedure/Preference IR Drainage Cath Card Injection for Eval SN Last Modified By: Juliocesar Mo R Topographical Drafter 09/12/22 14:30:28 Radiology Procedures- IR Entry 1 Procedure/Preference IR Drainage Cath Actual Procedure ir drain cath inj for Card Injection for Eval SN eval sn Primary Procedure Yes Primary Surgeon RAMIN SAMPSON MD Anesthesia/Sedation None Type Additional Procedure Times Start 09/12/22 14:14:00 Stop 09/12/22 14:25:00 Specialty Service SN Radiology Procedure EBL 0 mL Last Modified By: Juliocesar Mo R Topographical Drafter 09/12/22 14:30:33 Radiology Procedure Details - IR Entry 1 Radiology Sedation Case Times Sedation Total Time 0 Radiology - Fluid/Drainage Radiology Contrast Contrast Used? Yes Dose 10 mL Medication OMNIPAQUE 300 50ML 10/PK Y-530 NDC 5928-9789-01 Radiology Flouroscopy Fluoroscopy Used? Yes Fluoro Dose [...] the drain. Last Modified By: Juliocesar [employer] 09/12/22 14:34:10 General Case Data - IR Entry 1 Case Information Room AH IR 18 Case Level IR Level 2 Wound Class None Specialty SN Radiology Procedure ASA Class None Diagnosis Preop Diagnosis LLQ Seroma Postop Same As Preop Yes Postop Diagnosis LLQ Seroma Last Modified By: Juliocesar [employer] 09/12/22 14:17:00 Procedure Case Times- IR Entry 1 Patient In Procedure Patient In OR 09/12/22 14:10:00 Patient Out of OR 09/12/22 14:30:00 Procedure Start/Stop Procedure Start Time 09/12/22 14:14:00 Procedure Stop Time 09/12/22 14:25:00 Last Modified By: Juliocesar [employer] 09/12/22 14:30:24 Immediate Post Procedure Note - IR Entry 1 Immediate Post Yes Findings Successful drain cath Procedure Note sclerosis w/ etoh 9 ml displayed for Physician to review Closure Technique Closure Technique Other than Primary Last Modified By: Juliocesar [employer] 09/12/22 14:30:14 Immediate Post Procedure Note - IR Signed By: RAMIN SAMPSON MD 09/12/22 14:27 Allergy Information- IR Entry 1 Allergies Reviewed? Yes Allergies Reviewed Patient With Last Modified By: Juliocesar [employer] 09/12/22 14:12:52 Radiology Protocols/Time Out- IR Entry [...] results are properly Tech, Vanessa, labeled and [employer] Devang Topographical Drafter appropriately displayed, Alcohol based prep dry Instrument Sterility Team Members Vadim Berrios Verifying Sterility Procedure IR Drainage Cath Injection for Eval SN Last Modified By: Juliocesar Mo Topographical Drafter 09/12/22 14:15:05 Skin Prep- IR Entry 1 Procedure IR Drainage Cath Injection for Eval SN Skin Prep Prep Area Abdomen Side Left By Vadim Berrios Prep Agents Chloraprep Hair Removal Method N/A Last Modified By: Juliocesar Mo Topographical Drafter 09/12/22 14:15:32 Patient Positioning- IR Entry 1 Procedure IR Drainage Cath Body Position OP Supine Injection for Eval SN Feet Uncrossed? Yes Pressure Points n/a Checked Last Modified By: Juliocesar Mo Topographical Drafter 09/12/22 14:15:44 Radiology Procedure Plan - IR [...] symptoms of electrical injury. Outcomes Met? Yes Stitch Burnisher Juliocesar Mo Rad Completing Tech Procedure Plan Last Modified By: Juliocesar Mo Topographical Drafter 09/12/22 14:16:26 Case Comments <None> Finalized By: Juliocesar Mo Tech Document Signatures Signed By: Juliocesar Mo 09/12/22 14:34 [facility] 03-30-2023 Hospital Discharge instructions Patient Education 09/12/2022 14:26:09 Radiology- Procedure/Biopsy 09/29/2019 (CUSTOM) MOORE Radiology Procedure/Biopsy Discharge Instructions Interventional Radiology [facility] [address] [address] Today, you had a . This procedure/biopsy [...] 1 to 2 days following the procedure. Xuhc-zkd-wsyplww pain medication should be used for pain [...] instruction below: 8:00 am- 5:00 pm call [phone] After 5:00 pm call [phone] After 24 hours, contact the physician who [...] with primary care provider Address:Unknown When: Unknown [facility] 03-30-2023 Interventional radiology Progress note IR [...] MARSHALL CROCKER PA-C on 09/12/2022 04:08 PM [id number] Note IR Procedure Record Summary Primary Physician: RAMIN SAMPSON MD Finalized Date/Time: 09/12/22 14:34:18 Pt. Name: GA PATRICK Cesar SauerB./Sex: 1980 Male Med Rec #: [id number] Physician: Financial #: [id number] Pt. Type: O Room/Bed: / Admit/Disch: 09/12/22 [...] Mo Rad Juliocesar Mo Rad Juliocesar Mo Topographical Drafter 09/12/22 14:30:28 Tech 09/12/22 14:30:28 Tech 09/12/22 14:30:28 Entry 4 Case Attendee VanessaBrandie gray Devang Topographical Drafter Role Performed Mud Engineer 1 Details Time In 09/12/22 14:10:00 Time Out 09/12/22 14:30:00 Procedure/Preference IR Drainage Cath Card Injection for Eval SN Last Modified By: Juliocesar Mo Topographical Drafter 09/12/22 14:30:28 Radiology Procedures- IR Entry 1 Procedure/Preference IR Drainage Cath Actual Procedure ir drain cath inj for Card Injection for Eval SN eval sn Primary Procedure Yes Primary Surgeon RAMIN SAMPSON MD Anesthesia/Sedation None Type Additional Procedure Times Start 09/12/22 14:14:00 Stop 09/12/22 14:25:00 Specialty Service SN Radiology Procedure EBL 0 mL Last Modified By: Juliocesar Mo Topographical Drafter 09/12/22 14:30:33 Radiology Procedure Details - IR Entry 1 Radiology Sedation Case Times Sedation Total Time 0 Radiology - Fluid/Drainage Radiology Contrast Contrast Used? Yes Dose 10 mL Medication OMNIPAQUE 300 50ML 10/PK Y-530 [facility] 1515-1448-55 Radiology Flouroscopy Fluoroscopy Used? Yes Fluoro Dose [...] the drain. Last Modified By: Juliocesar Mo Topographical Drafter 09/12/22 14:34:10 General Case Data - IR Entry 1 Case Information Room AH IR 18 Case Level IR Level 2 Wound Class None Specialty SN Radiology Procedure ASA Class None Diagnosis Preop Diagnosis LLQ Seroma Postop Same As Preop Yes Postop Diagnosis LLQ Seroma Last Modified By: Juliocesar Mo R Topographical Drafter 09/12/22 14:17:00 Procedure Case Times- IR Entry 1 Patient In Procedure Patient In OR 09/12/22 14:10:00 Patient Out of OR 09/12/22 14:30:00 Procedure Start/Stop Procedure Start Time 09/12/22 14:14:00 Procedure Stop Time 09/12/22 14:25:00 Last Modified By: Juliocesar Mo R Topographical Drafter 09/12/22 14:30:24 Immediate Post Procedure Note - IR Entry 1 Immediate Post Yes Findings Successful drain cath Procedure Note sclerosis w/ etoh 9 ml displayed for Physician to review Closure Technique Closure Technique Other than Primary Last Modified By: Juliocesar Mo R Topographical Drafter 09/12/22 14:30:14 Immediate Post Procedure Note - IR Signed By: RAMIN SAMPSON MD 09/12/22 14:27 Allergy Information- IR Entry 1 Allergies Reviewed? Yes Allergies Reviewed Patient With Last Modified By: Juliocesar Mo R Topographical Drafter 09/12/22 14:12:52 Radiology Protocols/Time Out- IR Entry [...] properly Tech, Vanessa, labeled and Terra L Topographical Drafter appropriately displayed, Alcohol based prep dry Instrument Sterility Team Members Vadim Berrios Verifying Sterility Procedure IR Drainage Cath Injection for Eval SN Last Modified By: Juliocesar Mo R Topographical Drafter 09/12/22 14:15:05 Skin Prep- IR Entry 1 [...] n/a Checked Last Modified By: Juliocesar Mo Topographical Drafter 09/12/22 14:15:44 Radiology Procedure Plan - IR [...] symptoms of electrical injury. Outcomes Met? Yes Stitch Burnisher Juliocesar Mo [employer] Procedure Plan Last Modified By: Juliocesar Mo 09/12/22 14:16:26 Case Comments Finalized By: Juliocesar Mo Document Signatures Signed By: Juliocesar Mo Tech 09/12/22 14:34 [id number] Summary of episode note Discharge Instructions Thank you for allowing [facility] to assist you with your healthcare needs. [...] medication providers or retail pharmacies. Education Materials MOORE Radiology Procedure/Biopsy Discharge Instructions Interventional Radiology [facility] [address] [place] [address] Today, you had a . This procedure/biopsy [...] 1 to 2 days following the procedure. Nepj-aha-ntwbekb pain medication should be used for pain [...] instruction below: 8:00 am- 5:00 pm call [phone] After 5:00 pm call [phone] After 24 hours, contact the physician who [...] to receive it can visit one of [facility] vaccine clinics. There are many vaccine clinic locations within the [facility]. For locations and available times, please visit [email or web address] It is important to note that some COVID mobile vaccine clinics are held outdoors and may be canceled in rainy or stormy conditions. To learn more about pediatric vaccinations (ages 5-11), we invite you to visit the [employer] [facility] webpage. https://www.[facility].org/pages/2987-Zmcab-Cicygkuvxum-Zouctkxpvs-Bkyzn-Tzd stions.htmlTo learn more about the COVID-19 vaccine, we invite you to visit the CDC website for a list of frequently asked questions. https://www.cdc.gov/coronavirus/2019-ncov/vaccines/faq.html [facility] Patient Portal Access Instructions: Stay connected with your healthcare team and access your personal medical information anytime with the [facility] Patient Portal.If you would like a full copy of your medical records, please contact the [facility] Medical Records Department, Friday through Friday between 8a.m. and 4:30p.m. Please follow the directions below to access the portal: 1.Access the email account you provided upon registration to the hospital.2.Look for an invitation email from [facility].3.Open the email and access the invitation link: Accept Invitation to [facility]4.Fill in the required vegas to create your account. Sign into [email or web address] with your username and password that you [...] you will allow to register on the [employer] Patient Portal for access to your information. You can also access the [employer] Patient Portal on the [employer]. Simply click on Health Records under [employer] and then click on the DriverSide logo. HOW TO SAFELY DISPOSE OF PRESCRIPTION [...] Call your local pharmacy or go to http://WorldViz.GetAutoBids/5J9Ak8u to find one close to you.3.Make use of household items: Use cat litter or old coffee grounds to dispose medications if other options arenot available. Mix your drugs with these household products, seal them in an airtight container andthrow it into the garbage. Call [facility]: [phone] to be sure your drugs can be [...] aware that I should contact my doctor. Patient/Sap Security Architect Signature: Date/Time: Relationship to Patient: Witness Name/Signature: Date/Time: [facility]32-52-4885 Evaluation + Plan noteExtracted from: Title:IR pre [...] paper, which has been scanned into the [facility] PACS/RIS system. _ Future Scheduled Tests Laboratory* Basic Metabolic Panel 11/23/21 * Carbamazepine Level 11/23/21 * Complete Metabolic Panel 11/23/21 [facility] 03-30-2023 History and physical note IR [...] paper, which has been scanned into the [facility] PACS/RIS system. _ Digitally Signed by MARSHALL CROCKER PA-C on 09/12/2022 01:30 PM [facility] HospitalBitynaka74-52-2024 Evaluation + Plan noteExtracted from: Title:IR pre-procedure [...] 08/28/2022 and can be found in the [facility] Electronic Medical Records ([employer]). Harriet Leonard PA-C Interventional Radiology Pager: [phone] IR dept: x [phone] Available on [facility] Future Appointments Appointment Date:09/12/2022 02:00:00 PM Scheduled Provider: Location:IR Appointment Type:IR Drainage Cath Injection for Eval Future Scheduled Tests Laboratory* Basic Metabolic Panel 11/23/21 * Carbamazepine Level 11/23/21 * Complete Metabolic Panel 11/23/21 [facility] 03-23-2023 Hospital Discharge instructions Patient Education 09/05/2022 11:49:33 Radiology- Procedure/Biopsy 09/29/2019 (CUSTOM) MOORE Radiology Procedure/Biopsy Discharge Instructions Interventional Radiology [facility] [address] [facility] [address] Today, you had a Drain insertion . [...] 1 to 2 days following the procedure. Bqyh-mya-lberfby pain medication should be used for pain [...] instruction below: 8:00 am- 5:00 pm call [phone] After 5:00 pm call [phone] After 24 hours, contact the physician who [...] with primary care provider Address:Unknown When: Unknown [facility] 03-23-2023 Note* IBETH Regalado Riley: SIGN, AUTHOR, PERFORM Event Display: IR Procedure Record Authored Date: [id number] IR Procedure Record Summary Primary Physician: ROSHNI FLORES PA-C Finalized Date/Time: 09/05/22 11:48:45 Pt. Name: GAPATRICK./Sex: 1980 Male Med Rec #: [id number] Physician: Financial #: [id number] Pt. Type: O Room/Bed: / Admit/Disch: 09/05/22 [...] Case Attendee ROSHNI FLORES Jacque M. Allen, Topographical Drafter Tatyana ZARATE Role Performed Primary Surgeon Scrub [...] 4 Case Attendee IBETH Regalado Role Performed Mud Engineer 1 Details Time In 09/05/22 11:21:00 [...] Radiology - Action Plan Outcomes Met? Yes Stitch Burnisher IBETH Regalado Completing Procedure Plan Last Modified By: IBETH Regalado 09/05/22 11:26:48 Case Comments <None> Finalized By: IBETH Regalado Document Signatures Signed By: IBETH Regalado 09/05/22 11:48 [facility] 03-23-2023 History and physical note IR [...] 08/28/2022 and can be found in the [facility] Electronic Medical Records ([employer]). Harriet Leonard PA-C Interventional Radiology Pager: [phone] IR dept: x [phone] Available on [employer] Digitally Signed by HARRIET LEONARD PA-C on 09/05/2022 11:54 AM Digitally Signed by ESAU LOVE MD on 09/05/2022 03:20 PM [id number] Summary of episode note Discharge Instructions Thank you for allowing [facility] to assist you with your healthcare needs. [...] medication providers or retail pharmacies. Education Materials MOORE Radiology Procedure/Biopsy Discharge Instructions Interventional Radiology [facility] [address] [place] [address] Today, you had a Drain insertion . [...] 1 to 2 days following the procedure. Yuzh-uql-pclsvok pain medication should be used for pain [...] instruction below: 8:00 am- 5:00 pm call [phone] After 5:00 pm call [phone] After 24 hours, contact the physician who [...] to receive it can visit one of [facility] vaccine clinics. There are many vaccine clinic locations within the [facility]. For locations and available times, please visit [email or web address]/. It is important to note that some COVID mobile vaccine clinics are held outdoors and may be canceled in rainy or stormy conditions. To learn more about pediatric vaccinations (ages 5-11), we invite you to visit the [employer] [facility] webpage. https://www.[facility].org/pages/5610-Kodfa-Vygtiehqyoy-Cgbcmncvtb-Vqmdq-Nmh stions.htmlTo learn more about the COVID-19 vaccine, we invite you to visit the CDC website for a list of frequently asked questions. https://www.cdc.gov/coronavirus/2019-ncov/vaccines/faq.html [facility] Patient Portal Access Instructions: Stay connected with your healthcare team and access your personal medical information anytime with the [facility] Patient Portal.If you would like a full copy of your medical records, please contact the [facility] Medical Records Department, Friday through Friday between 8a.m. and 4:30p.m. Please follow the directions below to access the portal: 1.Access the email account you provided upon registration to the hospital.2.Look for an invitation email from [facility].3.Open the email and access the invitation link: Accept Invitation to [facility]4.Fill in the required vegas to create your account. Sign into [email or web address] with your username and password that you [...] you will allow to register on the [facility] Patient Portal for access to your information. You can also access the [facility] Patient Portal on the [employer] randal. Simply click on Health Records under [employer] and then click on the [employer] logo. HOW TO SAFELY DISPOSE OF PRESCRIPTION [...] Call your local pharmacy or go to http://WorldViz.GetAutoBids/1Y2Hz4s to find one close to you.3.Make use of household items: Use cat litter or old coffee grounds to dispose medications if other options arenot available. Mix your drugs with these household products, seal them in an airtight container andthrow it into the garbage. Call [facility]: [phone] to be sure your drugs can be [...] been reviewed and explained to me and I,WINKLEMAN, PATRICK A understand my current condition and have read and understand these discharge instructions. I have received a written copy of the plan/instructions. If I have questions, I am aware that I should contact my doctor. Patient/Sap Security Architect Signature: Date/Time: Relationship to Patient: Witness Name/Signature: Date/Time: [facility]reqhs[facility]j68-[facility]-2650 Note IR Procedure Record Summary Primary Physician: ROSHNI FLORES PA-C Finalized Date/Time: 09/05/22 11:48:45 Pt. Name: GA PATRICK Cesar Reyes./Sex: 1980 Male Med Rec #: [id number] Physician: Financial #: [id number] Pt. Type: O Room/Bed: / Admit/Disch: 09/05/22 [...] Case Attendee ROSHNI FLORES Jacque M. Allen, Topographical DrafterVerito Joe PA-C Role Performed Primary Surgeon Scrub [...] 4 Case Attendee IBETH Regalado Role Performed Mud Engineer 1 Details Time In 09/05/22 11:21:00 [...] ZARATE Jacque Relevant images and Fermín Mejía Topographical Drafter results are properly Sabine Joe RN Corey [...] Radiology - Action Plan Outcomes Met? Yes Stitch Burnisher IBETH Regalado Completing Procedure Plan Last Modified By: IBETH Regalado 09/05/22 11:26:48 Case Comments Finalized By: IBETH Regalado Document Signatures Signed By: IBETH Regalado 09/05/22 11:48 [facility]Tjdtksbv45-28-2235 Hospital Discharge instructions Patient Education 08/28/2022 21:50:43 [...] up Rapid heart rate Shortness of breath 5089-5439 [employer]. [address] [place] [address]. All rights reserved. This information is not intended as a substitute for professional medical care. Always follow yourhealthcare professional's instructions. Follow Up Care 08/28/2022 19:04:00 With:AARON DUQUE MD, Surgery Address: [address] [address] [phone] When:2-4 days [facility] 03-15-2023 Emergency department Discharge summary Discharge Instructions Thank you for allowing [facility] to assist you with your healthcare needs. The following is importantdischarge information regarding your hospital visit. Diagnosis from Today's Visit Seroma Abdominal pain What to Do Next Instructions from Your Care Team No qualifying data available. Post Acute Orders No qualifying data available. You Need to Schedule the Following Appointments Follow Up with AARON DUQUE MD, Surgery When Within 2-4 days Where: [address] [facility] [address] [place] [address] [phone] Allergies Keflex Keppra (Rash) Tape, Paper (Rash) morphine (Rash) naproxen Medications Please ask your primary doctor or pharmacist before taking any other medication not listed, including over the counter drugs, herbal medications, vitamins and or supplements as they may interact withyour home medications. What How Much When Why Instructions Last Dose New acetaminophen-hydrocodone ([place] 325- 5 mg oral tablet) 1 tab(s) [...] up Rapid heart rate Shortness of breath 4562-4373 [employer]. [address] [place] [address]. All rights reserved. This information is not intended as a substitute for professional medical care. Always follow yourhealthcare professional's instructions. Additional Information VACCINATE! IT SAVES LIVES! Members of the community who have not yet received the COVID-19 vaccine and would like to receive it can visit one of [facility] vaccine clinics. There are many vaccine clinic locations within the [facility]. For locations and available times, please visit www.[email or web address].[place].gov/. It is important to note that some COVID mobile vaccine clinics are held outdoors and may be canceled in rainy or stormy conditions. To learn more about pediatric vaccinations (ages 5-11), we invite you to visit the [employer] [facility] webpage. https://www.[facility].org/pages/5926-Edvwu-Jtapmyhhvbu-Lbnvycuxst-Myjbe-Dxd stions.htmlTo learn more about the COVID-19 vaccine, we invite you to visit the CDC website for a list of frequently asked questions. https://www.cdc.gov/coronavirus/2019-ncov/vaccines/faq.html [facility] Patient Portal Access Instructions: Stay connected with your healthcare team and access your personal medical information anytime with the [facility] Patient Portal. If you would like a full copy of your medical records please contact the [facility] Medical Records Department Friday through Friday between 8a.m. and 4:30p.m. Please follow the directions below to access the portal: 1.Access the email account you provided upon registration to the hospital.2.Look for an invitation email from [facility].3.Open the email and access the invitation link: Accept Invitation to [facility]4.Fill in the required vegas to create your account. Sign into [email or web address] with your username and password that you [...] you will allow to register on the [employer] Patient Portal for access to your information. You can also access the [facility] Patient Portal on the [employer] randal. Simply click on Health Records under [employer] and then click on the [employer] logo. HOW TO SAFELY DISPOSE OF PRESCRIPTION [...] Call your local pharmacy or go to http://WorldViz.GetAutoBids/5O9Kp8b to find one close to you.3.Make use of household items: Use cat litter or old coffee grounds to dispose medications if other options arenot available. Mix your drugs with these household products, seal them in an airtight container andthrow it into the garbage. Call [facility]: [phone] to be sure your drugs can be [...] aware that I should contact my doctor. Patient/Sap Security Architect Signature: Date/Time: Relationship to Patient: Witness Name/Signature: Date/Time: [facility]03-15-2023 Note ORIGINAL EXAMINATION: CT OF THE [...] Sign Date: 08/28/2022 9:32:42 PM Ordering Provider: Count includes the [facility]03-05-2023 Hospital Discharge instructions Patient Education 08/18/2022 [...] up Rapid heart rate Shortness of breath [phone] [employer]. [address] [place] [address]. All rights reserved. This information is not intended as a substitute for professional medical care. Always follow yourhealthcare professional's instructions. Follow Up Care 08/18/2022 11:30:43 With:AARON DUQUE MD, Surgery Address: [address] [facility] [address] [facility] [place] [address] [phone] When:2-4 days [facility] 03-05-2023 Note ORIGINAL EXAMINATION: CT OF [...] 08/18/2022 4:08:21 PM Ordering Provider: JONELLE GERARD [id number] Emergency department Discharge summary Discharge Instructions Thank [...] Surgery When Within 2-4 days Where: [address] [facility] [address] [facility] [address]- [phone] Allergies Keflex Keppra (Rash) Tape, Paper (Rash) morphine (Rash) naproxen Medications Please ask your primary doctor or pharmacist before taking any other medication not listed, including over the counter drugs, herbal medications, vitamins and or supplements as they may interact withyour home medications. What How Much When Why Instructions Last Dose New acetaminophen-hydrocodone (Catawba 325- 5 mg oral tablet) 1 tab(s) [...] up Rapid heart rate Shortness of breath [id number] [employer]. [address] [place] [address]. All rights reserved. This information is not intended as a substitute for professional medical care. Always follow yourhealthcare professional's instructions. Additional Information VACCINATE! IT SAVES LIVES! Members of the community who have not yet received the COVID-19 vaccine and would like to receive it can visit one of [facility] vaccine clinics. There are many vaccine clinic locations within the [facility]. For locations and available times, please visit www.[email or web address].[email or web address]/. It is important to note that some COVID mobile vaccine clinics are held outdoors and may be canceled in rainy or stormy conditions. To learn more about pediatric vaccinations (ages 5-11), we invite you to visit the [facility] webpage. https://www.[facility].org/pages/1966-Zgvuf-Bbxhxmtlydk-Jlnjbeazkw-Dfnwm-Qps stions.htmlTo learn more about the COVID-19 vaccine, we invite you to visit the CDC website for a list of frequently asked questions. https://www.cdc.gov/coronavirus/2019-ncov/vaccines/faq.html [facility] Patient Portal Access Instructions: Stay connected with your healthcare team and access your personal medical information anytime with the [facility] Patient Portal. If you would like a full copy of your medical records please contact the [facility] Medical Records Department Friday through Friday between 8a.m. and 4:30p.m. Please follow the directions below to access the portal: 1.Access the email account you provided upon registration to the [facility].2.Look for an invitation email from [facility].3.Open the email and access the invitation link: Accept Invitation to [facility]4.Fill in the required vegas to create your account. Sign into [email or web address] with your username and password that you [...] you will allow to register on the [facility] Patient Portal for access to your information. You can also access the [facility] Patient Portal on the eSNF randal. Simply click on Health Records under [facility] and then click on the [facility] logo. [...] Call your local pharmacy or go to http://WorldViz.GetAutoBids/[email or web address] to find one close to you.3.Make use of household items: Use cat litter or old coffee grounds to dispose medications if other options arenot available. Mix your drugs with these household products, seal them in an airtight container andthrow it into the garbage. Call [facility]: [phone] to be sure your drugs can be [...] aware that I should contact my doctor. Patient/Sap Security Architect Signature: Date/Time: Relationship to Patient: Witness Name/Signature: [id number] Note ORIGINAL EXAMINATION: CT OF THE ABDOMEN [...] 08/18/2022 4:08:21 PM Ordering Provider: JONELLE Mclean [id number] Hospital Discharge instructions Patient Education 07/22/2022 13:14:21 [...] stores. You don t need a prescription. [phone] [employer]. [address] [place] [address]. All rights reserved. This information is not intended as a substitute for professional medical care. Always follow yourhealthcare professional's instructions. Follow Up Care 07/22/2022 10:03:39 With:Call Physician Referral Address:Unknown When:2-4 days With:Follow up with primary care provider Address:Unknown When:2-4 days [facility] 02-06-2023 Note Discharge Instructions Thank you for allowing [facility] to assist you with your healthcare needs. [...] Why Instructions Last Dose Unchanged acetaminophen- hydrocodone (Catawba 325- 5 mg oral tablet) 1 tab(s) [...] stores. You don t need a prescription. 9130-1104 [employer]. [address] [place] [address]. All rights reserved. This information is not intended as a substitute for professional medical care. Always follow yourhealthcare professional's instructions. Additional Information VACCINATE! IT SAVES LIVES! Members of the community who have not yet received the COVID-19 vaccine and would like to receive it can visit one of [facility] vaccine clinics. There are many vaccine clinic locations within the [facility]. For locations and available times, please visit www.[email or web address]. It is important to note that some COVID mobile vaccine clinics are held outdoors and may be canceled in rainy orstormy conditions. To learn more about pediatric vaccinations (ages 5-11), we invite you to visit the [facility] webpage. https://www.[employer].org/pages/1329-Bdddi-Ypqwogetzvf-Mbqoevxqyw-Xlflb-Suj stions.htmlTo learn more about the COVID-19 vaccine, we invite you to visit the [facility] website for a list of frequently asked questions. [email or web address]-Vlhuarhjxl _[email or web address]-Questions.pdf [facility] Patient Portal Access Instructions: Stay connected with your healthcare team and access your personal medical information anytime with the [facility] Patient Portal. If you would like a full copy of your medical records please contact the [facility] Medical Records Department Friday through Friday between 8a.m. and 4:30p.m. Please follow the directions below to access the portal: 1.Access the email account you provided upon registration to the [facility].2.Look for an invitation email from [facility].3.Open the email and access the invitation link: Accept Invitation to [facility]4.Fill in the required vegas to create your account. Sign into [email or web address] with your username and password that you [...] you will allow to register on the [facility] Patient Portal for access to your information. You can also access the [facility] Patient Portal on the [employer]. Simply click on Health Records under 121cast and then click on the DriverSide logo. HOW TO SAFELY DISPOSE OF PRESCRIPTION [...] Call your local pharmacy or go to http://WorldViz.GetAutoBids/3B6Mk4w to find one close to you.3.Make use of household items: Use cat litter or old coffee grounds to dispose medications if other options arenot available. Mix your drugs with these household products, seal them in an airtight container andthrow it into the garbage. Call [facility]: [phone] to be sure your drugs can be [...] aware that I should contact my doctor. 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 Blanco Shaw History of Present Illness 42-year-old male who underwent an open repair of a recurrent umbilical/ventral hernia with anteriorcomponent separation here at [place] 4 days ago. The patient states that [...] He admits that he was taking his Catawba on schedule every 6 hours and not [...] vomiting due to the regular use of Catawba taking it as scheduled every 6 hours [...] works for him. Avoid using any further Catawba unless absolutely necessary and take regular doses [...] Medications Inpatient No active inpatient medications Home Catawba 325- 5 mg oral tablet, 1 tab(s), [...] AARON DUQUE MD on 07/22/2022 01:23 PM [facility]02-06-2023 Note ORIGINAL EXAMINATION: CT OF THE [...] 07/22/2022 11:41:58 AM Ordering Provider: RADHA YI [facility]02-06-2023 Note ORIGINAL EXAMINATION: CT OF THE [...] Sign Date: 07/22/2022 11:41:58 AM Ordering Provider: [facility]02-02[facility]2023 Hospital Discharge instructions Patient Education 07/18/2022 11:53:26 [...] Document Reviewed: 06/21/2019 Elsevier Patient Education 2020 [employer]. 07/18/2022 11:53:21 How to Use an [...] as possible. If the spirometer includes a nutritional health coach indicator, use this to guide [...] 10/13/2007 Document Revised: 06/25/2018 Document Reviewed: 04/15/2018 Icera Patient Education 2020 [employer]. 07/18/2022 11:45:57 Surgical Drain Home Care Surgical [...] placed at your back, or any other xmjo-ry-rzygp area, ask another person to assist you [...] and water are not available, use hand wedding planner. 3.Remove the old dressing. Avoid using scissors [...] and water are not available, use hand wedding planner. 3.Loosen any pins or clips that hold [...] placed at your back, or any other ljsr-oh-wpaji area, ask another person to assist you. Contact your health care provider if you have redness, swelling, or pain around your drain area. This information is not intended to replace advice given to you by your health care provider. Make sure you discuss any questions you have with your health care provider. Document Released: 05/30/2001 Document Revised: 07/07/2019 Document Reviewed: 07/07/2019 Icera Patient Education 2020 Elsevier Inc. 07/18/2022 11:45:56 8- Ryan Pantoja Drain [...] Document Reviewed: 06/03/2014 ExitCare Patient Information 2015 [employer]. This information is not intended to replace [...] garbage bag. Soap and water, or hand wedding planner. Wound cleanser or salt-water solution (saline). New [...] soap and water are notavailable, use hand wedding planner. 3.Set up a clean station for wound [...] soap and water are notavailable, use hand wedding planner. Clean your wound Wear gloves, protective clothing, [...] soap and water are notavailable, use hand wedding planner. Apply new dressing Wear gloves, protective clothing, [...] soap and water are notavailable, use hand wedding planner. 8.Turn the pump back on. The sponge dressing should collapse. Do not change the settings on the machine without talking to a health care provider. 9.Replace the container in the pump that collects fluid if it is full. Replace the container per the assistant restaurant general manager's instructions or at least once a [...] all clamps are open. Do not use xlxf-hbk-uksyrat medicated or antiseptic creams, sprays, liquids, or [...] 08/24/2012 Document Revised: 09/24/2019 Document Reviewed: 08/20/2019 Icera Patient Education 2020 [employer]. 07/18/2022 11:39:25 Nausea and Vomiting, Adult Nausea [...] water added (diluted fruit juice). Eat bland, npwv-db-zqdple foods in small amounts as you are able. These foods include bananas, applesauce, rice, lean meats, toast, and crackers. Avoid fluids that contain a lot of sugar or caffeine, such as energy drinks, sports drinks, and soda. Avoid alcohol. Avoid spicy or fatty foods. General instructions Take zbkd-abo-ixrjtok and prescription medicines only as told by your health care provider. Drink enough fluid to keep your urine pale yellow. Wash your hands often using soap and water. If soap and water are not available, use hand wedding planner. Make sure that all people in your [...] eating and drinking to prevent dehydration. Take gksx-nkt-wtokhmq and prescription medicines only as told by [...] 06/02/2006 Document Revised: 09/24/2019 Document Reviewed: 11/10/2018 Icera Patient Education 2020 [employer]. 07/18/2022 11:39:15 Monitored Anesthesia Care, Care After [...] before eating solid foods. General instructions Take nhrd-dpz-lqkccwm and prescription medicines only as told by [...] 09/22/2016 Document Revised: 08/31/2018 Document Reviewed: 09/22/2016 Icera Patient Education 2020 [employer]. 07/18/2022 11:39:09 Open Hernia Repair, Adult, Care [...] and water are not available, use hand wedding planner. ?Change your dressing as told by your [...] your urine clear or pale yellow. ?Take jrhc-nic-wdrklqx or prescription medicines. ?Eat foods that are high in fiber, such as fresh fruits and vegetables, whole grains, and beans. ?Limit foods that are high in fat and processed sugars, such as fried and sweet foods. Take abtq-mwa-wwxqcgb and prescription medicines only as told by [...] 12/20/2005 Document Revised: 05/15/2018 Document Reviewed: 11/13/2016 ElseNifty After Fifty Patient Education 2020 [employer] Inc. Follow Up Care 07/02/2022 10:17:34 With:AARON DUQUE MD, Surgery Address: [address] [facility] [place] [address] [phone] When:07/25/2022 10:00:00 Comments:Follow-up as scheduled [facility] 02-02-2023 Summary of episode note Discharge Instructions Thank you for allowing [facility] to assist you with your healthcare needs. The following is importantdischarge information regarding your hospital visit. Your Care Team AARON DUQUE MD Your Diagnosis Acute post-operative pain What to do next Follow Up Appointments Follow Up with AARON DUQUE MD, Surgery When In 2 weeks Why: Call office to schedule follow up appointment. Where: [address] [place] [address]- [phone] The Following Activity and Diet Have Been Ordered for You Discharge Activity - Ordered -- Sexual Long Barn Restricted No bending, twisting, crawling or squatt, [...] When Why Instructions Last Dose New acetaminophen-hydrocodone (Catawba 325- 5 mg oral tablet) 1 tab(s) by mouth Every 4 hours as needed for Pain, scale 4-6 Acute post-operative pain Duration: 7 Days Pickup at [id number] Unchanged carBAMazepine (TEGretol 200 mg oral tablet) 3 tab(s) by mouth Two (2) times a day Seizure Post-operative state s/p umbilical hernia repair, possible seizure following surgery Pharmacy Information [id number]: [address], [place] [phone] Please take this list to your next [...] as possible. If the spirometer includes a nutritional health coach indicator, use this to guide [...] 10/13/2007 Document Revised: 06/25/2018 Document Reviewed: 04/15/2018 Icera Patient Education 2020 [employer] Surgical Drain Home Care Surgical drains [...] placed at your back, or any other tdtt-lq-iroxc area, ask another person to assist you [...] and water are not available, use hand wedding planner. 3. Remove the old dressing. Avoid using [...] and water are not available, use hand wedding planner. 3. Loosen any pins or clips that [...] placed at your back, or any other fvjd-iw-ofoqb area, ask another person to assist you. Contact your health care provider if you have redness, swelling, or pain around your drain area. This information is not intended to replace advice given to you by your health care provider. Make sure you discuss any questions you have with your health care provider. Document Released: 05/30/2001 Document Revised: 07/07/2019 Document Reviewed: 07/07/2019 ElseNifty After Fifty Patient Education 2019 [employer]. Ryan Pantoja Drain Patient Education After surgery, [...] 06/02/2006 Document Revised: 05/19/2013 Document Reviewed: 06/03/2014 [facility] Patient Information 2015 [employer]. This information is not intended to replace [...] garbage bag. Soap and water, or hand wedding planner. Wound cleanser or salt-water solution (saline). New [...] and water are not available, use hand wedding planner. 3. Set up a clean station for [...] and water are not available, use hand wedding planner. Clean your wound Wear gloves, protective clothing, [...] and water are not available, use hand wedding planner. Apply new dressing Wear gloves, protective clothing, [...] and water are not available, use hand wedding planner. 8. Turn the pump back on. The sponge dressing should collapse. Do not change the settings on the machine without talking to a health care provider. 9. Replace the container in the pump that collects fluid if it is full. Replace the container per the assistant restaurant general manager's instructions or at least once a [...] all clamps are open. Do not use tunp-yzi-wghamim medicated or antiseptic creams, sprays, liquids, or [...] 08/24/2012 Document Revised: 09/24/2019 Document Reviewed: 08/20/2019 Icera Patient Education 2020 [employer] Inc. Nausea and Vomiting, Adult Nausea is [...] water added (diluted fruit juice). Eat bland, xhmn-aj-gardsx foods in small amounts as you are able. These foods include bananas, applesauce, rice, lean meats, toast, and crackers. Avoid fluids that contain a lot of sugar or caffeine, such as energy drinks, sports drinks, and soda. Avoid alcohol. Avoid spicy or fatty foods. General instructions Take mskn-aiy-cknpcqc and prescription medicines only as told by your health care provider. Drink enough fluid to keep your urine pale yellow. Wash your hands often using soap and water. If soap and water are not available, use hand wedding planner. Make sure that all people in your [...] eating and drinking to prevent dehydration. Take drcj-wth-wbwbvse and prescription medicines only as told by [...] 06/02/2006 Document Revised: 09/24/2019 Document Reviewed: 11/10/2018 Icera Patient Education 2020 [employer]. Monitored Anesthesia Care, Care After These instructions [...] before eating solid foods. General instructions Take kwvf-vje-tuntrbc and prescription medicines only as told by [...] 09/22/2016 Document Revised: 08/31/2018 Document Reviewed: 09/22/2016 Icera Patient Education 2020 [employer]. Open Hernia Repair, Adult, Care After This [...] and water are not available, use hand wedding planner. ? Change your dressing as told by [...] urine clear or pale yellow. ? Take jlcn-psb-dsgvucn or prescription medicines. ? Eat foods that are high in fiber, such as fresh fruits and vegetables, whole grains, and beans. ? Limit foods that are high in fat and processed sugars, such as fried and sweet foods. Take kcum-zuy-krehvlk and prescription medicines only as told by [...] 12/20/2005 Document Revised: 05/15/2018 Document Reviewed: 11/13/2016 Icera Patient Education 2020 [employer] Inc. Additional Information VACCINATE! IT SAVES LIVES! Members of the community who have not yet received the COVID-19 vaccine and would like to receive it can visit one of [facility] vaccine clinics. There are many vaccine clinic locations within the State. For locations and available times, please visit [email or web address]/. It is important to note that some COVID mobile vaccine clinics are held outdoors and may be canceled in rainy or stormy conditions. To learn more about pediatric vaccinations (ages 5-11), we invite you to visit the [facility] webpage. https://www.[facility].org/pages/8603-Cbupe-Glndqdkpsyh-Phobuzbcpj-Rmeqb-Gky stions.htmlTo learn more about the COVID-19 vaccine, we invite you to visit the [employer] website for a list of frequently asked questions. [email or web address]/[email or web address] _[email or web address]-Questions.pdf [facility] Patient Portal Access Instructions: Stay connected with your healthcare team and access your personal medical information anytime with the [facility] Patient Portal.If you would like a full copy of your medical records, please contact the [facility] Medical Records Department, Friday through Friday between 8a.m. and 4:30p.m. Please follow the directions below to access the portal: 1.Access the email account you provided upon registration to the hospital.2.Look for an invitation email from [facility].3.Open the email and access the invitation link: Accept Invitation to [facility]4.Fill in the required vegas to create your account. Sign into [email or web address] with your username and password that you [...] you will allow to register on the [facility] Patient Portal for access to your information. You can also access the [facility] Patient Portal on the eSNF randal. Simply click on Health Records under [employer] and then click on the [employer] logo. HOW TO SAFELY DISPOSE OF PRESCRIPTION MEDICATIONS Please use one of the following methods to safely dispose of your unused medications. 1.Use a drug disposal kit: the drug disposal pouch allows you to safely discard your old and unuseddrugs. Ask your nurse to give you one when you are dischar (more content not included)... [facility]02-02-2023 Anesthesiology Consult note Patient: PATRICK KOROMA Age: 42 years Sex: Male : 1980 Associated Diagnoses: None Author: SOFÍA OROZCO APRN-ASHLEY Preoperative Information Time of last food or [...] list: Medical Acid reflux / SNOMED CT 939559605 / Confirmed 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 / SNOMED CT [id number] / Confirmed Fall / SNOMED CT 7159341 / Confirmed Electric shock / SNOMED CT 5119703258 / Confirmed Full dentures / SNOMED CT 265811130 / Confirmed Postprocedural hematoma of skin and subcutaneous tissue following other procedure / SNOMED CT 576939951 / Confirmed Seizure / SNOMED CT 798294376 / Confirmed TIA / SNOMED CT 574662556 / Confirmed Umbilical hernia / SNOMED CT 2877807260 / Confirmed, Active Problems (10) Acid reflux 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 Electric shock Fall Full dentures Postprocedural hematoma of skin and subcutaneous tissue following other procedure Seizure TIA Tobacco use Umbilical hernia Histories Past Medical History: Active TIA (056637651) Acid reflux (662358166) Seizure (838893122) Family History: Congenital heart disease Brother Stroke Mother Father Procedure history: Repair of recurrent ventral hernia (957314353) on 11/22/2021 at 41 Years. History of repair of umbilical hernia (8539037353) in 2019 at 39 Years. Appendectomy (885663002). 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-BERT Tobacco 2Risk Assessment: High Risk 07/01/2022 Tobacco [...] Signs(last 24 hrs) Last Charted Heart Rate Rgsragpym23 bpm (JUL 18 08:50) Resp Rate 18 br/min (JUL 18 06:48) QBY692 mmHg (JUL 18 08:50) DBP68 mmHg (JUL 18 08:50) Measurements from flowsheet : Measurements 07/18/2022 6:48 EST Height 188 cm Admission Weight 134 kg Ronan Body Weight 82.24 kg Admission Body Mass [...] Method N/A 07/18/2022 8:02 EST SN - CT - Medication MARCAINE BUPIVACAINE 0.5% 30ML SN - CT - Route of Administration Local SN - CT - Route of Administration Local SN - CT - By (Single) SN - CT - By (Single) SN - CT - By (Single) SN - CT - By (Single) 07/18/2022 7:57 EST SN - PP - Body Position Supine Standard Intra-op 07/18/2022 7:56 EST SN - PTCare - Anti-thromboembolism Ayla Sequential Compression Device (SCD) 07/18/2022 7:49 EST SN - CAt - Case Attendee SN - CAt - Case Attendee SN - CAt - Case Attendee SN - CAt - Case Attendee SN - CAt - Role Performed CONTOUR GRINDER SN - CAt - Role Performed Scientific Recruiter 1 07/18/2022 7:30 EST Primary Pain Intensity [...] Surgeon SN - CAt - Role Performed Mud Engineer 1 SN - CAt - Role [...] Height 188 cm Admission Weight 134 kg Ronan Body Weight 82.24 kg Admission Body Mass [...] no difficulties Skin Temperature Warm Skin Description [place], Dry Skin Integrity Intact Mucous Membrane Color [place] IV Present Present Continuous IV Infusions LR [...] Cooperative Orientation Oriented x 4 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 [address] [place] [address]. All rights reserved. This information is not intended as a substitute for professional medical care. Always follow yourhealthcare professional's instructions. Follow Up Care 07/15/2022 00:22:57 With:[facility] Address: When:2-4 days [facility] 01-30-2023 Note Discharge Instructions Thank you for allowing [place] to assist you with your healthcare needs. The following is importantdischarge information regarding your hospital visit. Diagnosis from Today's Visit Seizure disorder, Seizure Possible Seizure What to Do Next Instructions from Your Care Team No qualifying data available. Post Acute Orders No qualifying data available. You Need to Schedule the Following Appointments Follow Up with [facility] When Within 2-4 days Where: Allergies Keflex [...] told. 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 [address] [place] [address]. All rights reserved. This information is not intended as a substitute for professional medical care. Always follow yourhealthcare professional's instructions. Additional Information VACCINATE! IT SAVES LIVES! Members of the community who have not yet received the COVID-19 vaccine and would like to receive it can visit one of [facility] vaccine clinics. There are many vaccine clinic locations within the [facility]. For locations and available times, please visit [email or web address]. It is important to note that some COVID mobile vaccine clinics are held outdoors and may be canceled in rainy orstormy conditions. To learn more about pediatric vaccinations (ages 5-11), we invite you to visit the [facility] webpage. https://www.[facility].org/pages/2621-Lbczc-Lqkxjqislgp-Cszfaodeqq-Biqjg-Vem stions.htmlTo learn more about the COVID-19 vaccine, we invite you to visit the [place] website for a list of frequently asked questions. https://[email or web address]/assets/Pzgntoem-ksu-Vsiqrgqt/viwvh-Isjyvyy-Nnosovjnbn _Asked-Questions.pdf [facility] Patient Portal Access Instructions: Stay connected with your healthcare team and access your personal medical information anytime with the [place] [facility]. If you would like a full copy of your medical records please contact the [facility] Medical Records Department Friday through Friday between 8a.m. and 4:30p.m. Please follow the directions below to access the portal: 1.Access the email account you provided upon registration to the [facility].2.Look for an invitation email from [facility].3.Open the email and access the invitation link: Accept Invitation to [place] [facility]4.Fill in the required vegas to create your account. Sign into [email or web address] with your username and password that you [...] you will allow to register on the [place] [facility] Patient Portal for access to your information. You can also access the [place] [facility] Patient Portal on the eSNF randal. Simply click on Health Records under GCommerceData and then click on the Brett logo. [...] Call your local pharmacy or go to http://bit.GetAutoBids/6H1Ut5i to find one close to you.3.Make use of household items: Use cat litter or old coffee grounds to dispose medications if other options arenot available. Mix your drugs with these household products, seal them in an airtight container andthrow it into the garbage. Call [facility]: [phone] to be sure your drugs can be [...] been reviewed and explained to me and IAG TIMOTHY A understand my current condition and have read and understand these discharge instructions. I have received a written copy of the plan/instructions. If I have questions, I am aware that I should contact my doctor. Patient/Sap Security Architect Signature: Date/Time: Relationship to Patient: Witness Name/Signature: Date/Time: [facility]01-30-2023 Note ORIGINAL EXAMINATION: CT OF THE [...] 07/15/2022 1:25:42 AM Ordering Provider: DAVONTE ONEILL [facility]01-30-2023 Note ORIGINAL EXAMINATION: CT OF THE [...] Date: 07/15/2022 1:25:42 AM [facility] Discharge instructions Patient Education 06/27/2022 [...] face You have problems speaking or seeing [phone] [employer]. [address] [place] [address]. All rights reserved. This information is not [...] or as directed by your healthcare provider [phone] [employer]. [address] [place] [address], [place] [address]. All rights reserved. This information is not [...] foods again, start with small amounts of mypt-tg-gwpxua, low- fat foods. These include apple sauce, [...] increase stomach acid. Don't use aspirin or lxqc-uyp-ksknomh pain and fever medicines, if possible. This includes nonsteroidal anti-inflammatory drugs (NSAIDs). Lose excess weight. Finish eating at least 2 hours before you go to bed or lie down. Raise the head of your bed. [phone] [employer]. [address] [place] [address]. All rights reserved. This information is not [...] the referral doctor. With:AARON DUQUE Address: [address] [facility] [address] [facility] [place] [address]- [phone] Business (1) When:2-4 days Comments:Schedule an appointment for close follow-up.Continue Tylenol for pain as needed.Use Catawba as prescribed for severe pain as needed.Return to the ED if symptoms worsen. [facility] Brett Calix 01-13-2023 Note Discharge Instructions Thank you for [...] Continue Tylenol for pain as needed. Use Catawba as prescribed for severe pain as needed. Return to the ED if symptoms worsen. Where: [address] [facility] [address] [facility] [place] [address]- [phone] Business (1) Allergies Keflex Keppra (Rash) Tape, Paper (Rash) morphine (Rash) naproxen Medications Please ask your primary doctor or pharmacist before taking any other medication not listed, including over the counter drugs, herbal medications, vitamins and or supplements as they may interact withyour home medications. What How Much When Why Instructions Last Dose New acetaminophen-hydrocodone (Catawba 325- 5 mg oral tablet) 1 tab(s) [...] face You have problems speaking or seeing [phone] [employer]. [address] [place] [address], [place] [address]. All rights reserved. This information is not [...] or as directed by your healthcare provider [phone] [employer]. [address] [place] [address]. All rights reserved. This information is not [...] foods again, start with small amounts of yvll-oj-tofgam, low- fat foods. These include apple sauce, [...] increase stomach acid. Don't use aspirin or qoiw-qeh-dcxjvwu pain and fever medicines, if possible. This includes nonsteroidal anti-inflammatory drugs (NSAIDs). Lose excess weight. Finish eating at least 2 hours before you go to bed or lie down. Raise the head of your bed. [phone] [employer]. [address] [place] [address], [place] [id number]. All rights reserved. This information is not intended as a substitute for professional medical care. Always follow yourhealthcare professional's instructions. Additional Information VACCINATE! IT SAVES LIVES! Members of the community who have not yet received the COVID-19 vaccine and would like to receive it can visit one of [facility] vaccine clinics. There are many vaccine clinic locations within the [facility]. For locations and available times, please visit [email or web address]. It is important to note that some COVID mobile vaccine clinics are held outdoors and may be canceled in rainy orstormy conditions. To learn more about pediatric vaccinations (ages 5-11), we invite you to visit the [facility] webpage. https://www.[facility].org/pages/7820-Vrwlx-Aaflugrhbtw-Cpvyuiriea-Rmuai-Uhc stions.htmlTo learn more about the COVID-19 vaccine, we invite you to visit the [place] website for a list of frequently asked questions. [email or web address]/assets/Itdwtblh-xwp-Ougfeeek/dcpvh-Uuylofl-Wxikczospj _Asked-Questions.pdf [facility] Patient Portal Access Instructions: Stay connected with your healthcare team and access your personal medical information anytime with the [place] [facility] Patient Portal. If you would like a full copy of your medical records please contact the [facility] Medical Records Department Friday through Friday between 8a.m. and 4:30p.m. Please follow the directions below to access the portal: 1.Access the email account you provided upon registration to the [facility].2.Look for an invitation email from [facility].3.Open the email and access the invitation link: Accept Invitation to [facility]4.Fill in the required vegas to create your [...] you will allow to register on the [place] [facility] Patient Portal for access to your information. You can also access the [facility] Patient Portal on the eSNF randal. Simply click on Health Records under 121cast and then click on the Brett logo. [...] Call your local pharmacy or go to http://WorldViz.GetAutoBids/7G6Is3c to find one close to you.3.Make use of household items: Use cat litter or old coffee grounds to dispose medications if other options arenot available. Mix your drugs with these household products, seal them in an airtight container andthrow it into the garbage. Call [facility]: [phone] to be sure your drugs can be [...] aware that I should contact my doctor. Patient/Sap Security Architect Signature: Date/Time: Relationship to Patient: Witness Name/Signature: Date/Time: [facility]01-12-2023 Note ORIGINAL EXAMINATION: CT OF THE [...] Date: 06/27/2022 11:27:05 PM Ordering Provider: [facility]01-12-2023 Note ORIGINAL EXAMINATION: CT OF [...] Sign Date: 06/27/2022 11:27:05 PM Ordering Provider: [place] [facility]01-05-2023 Hospital Discharge instructions* Discharge Instructions* ERIC Mandel - 06/20/2022 12:31 AM EST Please take medication as prescribed Please follow up with your Physicians as instructed in this discharge paperwork Thank you for choosing [facility] I appreciate your patience Please return to the emergency department if your symptoms worsen, or new symptoms develop as discussed documented in this [facility]01-04-2023 Emergency department Note* ERIC Mandel - 06/19/2022 7:06 PM EST [facility] EMERGENCY DEPARTMENT ENCOUNTER Pt Name: Patrick [...] patient come from an ECF, SNF, Rehab, Fdc or other Congregate setting: no (If yes [...] HISTORY Past Medical History: Diagnosis Date Seizures ([facility] [place] SURGICAL HISTORY Past Surgical History: Procedure Laterality [...] upper and lower extremities bilateral with normal apartment leasing specialist strength, normal plantar flexion and dorsiflexion. Skin: Findings: No erythema or rash. Neurological: General: No focal deficit present. Mental Status: He is oriented to person, place, and time. Comments: Cranial Nerves 2-12 are intact without without any neurological deficits Normal ttnmzm-bg-kglske, xrzyei-tx-nilc, alternating hands, heel to tong test bilateral [...] Discharge 06/20/2022 12:30:39 AM PATIENT REFERRED TO: [facility] [address] [facility] [address] Schedule an appointment as soon as possible for a visit in 2 days [facility] [address] [facility] [phone] Schedule an appointment as soon as possible for a visit in 1 week [facility] [address] [facility] [address] Go to If symptoms worsen DISCHARGE MEDICATIONS: New Prescriptions No medications on file (Please note: Portions of this note were completed with a voice recognition program. Efforts were made to edit thedictations but occasionally words and phrases are mis-transcribed.) Form v2016.J.5-cn ERIC Mandel (electronically signed) Emergency Medicine Provider ERIC Mandel 06/20/22 0034 ERIC Mandel 06/20/22 0038 documented in this [facility]01-04-2023 Physician Emergency department Note* ERIC Mandel - 06/19/2022 7:06 PM EST [facility] EMERGENCY DEPARTMENT ENCOUNTER Pt Name: Patrick [...] patient come from an ECF, SNF, Rehab, Fdc or other Congregate setting: no (If yes [...] HISTORY Past Medical History: Diagnosis Date Seizures ([facility] [place]) SURGICAL HISTORY Past Surgical History: Procedure Laterality [...] upper and lower extremities bilateral with normal apartment leasing specialist strength, normal plantar flexion and dorsiflexion. Skin: Findings: No erythema or rash. Neurological: General: No focal deficit present. Mental Status: He is oriented to person, place, and time. Comments: Cranial Nerves 2-12 are intact without without any neurological deficits Normal qjxrfj-ae-nrvrbw, lacesz-tm-scol, alternating hands, heel to tong test bilateral [...] few. Diego Christie PA-C am the primary [facility]AL clinician [...] Procedures FINAL IMPRESSION 1. Seizure (CMS/HCC) ([facility] [place]) DISPOSITION/PLAN DISPOSITION Discharge 06/20/2022 12:30:39 AM PATIENT REFERRED TO: [facility] [address] [facility] [address] [facility] [phone] Schedule an appointment as soon as possible for a visit in 2 days [facility] [address] [place] [phone] Schedule an appointment as soon as possible for a visit in 1 week [facility] [address] [facility] [phone] Go to If symptoms worsen DISCHARGE MEDICATIONS: New Prescriptions No medications on file (Please note: Portions of this note were completed with a voice recognition program. Efforts were made to edit thedictations but occasionally words and phrases are mis-transcribed.) Form v2016.J.5-cn ERIC Mandel (electronically signed) Emergency Medicine Provider ERIC Mandel 06/20/224 ERIC Mandel 06/20/22 0038 [facility] [employer] Phone: [phone] 411-953912-17-2022 Hospital Discharge instructions Patient Education 05/31/2022 23:54:43 [...] or as directed by your healthcare provider [phone] [employer]. [address] [place] [address]. All rights reserved. This information is not [...] blue color of the hand or foot 8189-1475 [employer]. [address] [place] [address], [place] [address]. All rights reserved. This information is not intended as a substitute for professional medical care. Always follow yourhealthcare professional's instructions. Follow Up Care 05/31/2022 21:06:21 With:AARON DUQUE Address: [address] [facility] [address] [place] [phone] Business (1) When:3-7 days Comments:Schedule appointment for follow-up.Use Tylenol or Motrin for pain as needed.Use Catawba as prescribedfor severe pain as needed.Return to the ED if symptoms worsen. [facility] 12-17-2022 Note Discharge Instructions Thank you for allowing [place] to assist you with your healthcare needs. [...] or Motrin for pain as needed. Use Catawba as prescribed for severe pain as needed. Return to the ED if symptoms worsen. Where: [address] [phone] Business (1) Allergies Keflex Keppra (Rash) Tape, Paper (Rash) morphine (Rash) naproxen Medications Please ask your primary doctor or pharmacist before taking any other medication not listed, including over the counter drugs, herbal medications, vitamins and or supplements as they may interact withyour home medications. What How Much When Why Instructions Last Dose New acetaminophen-hydrocodone (Catawba 325- 5 mg oral tablet) 1 tab(s) [...] or as directed by your healthcare provider [phone] [employer]. [address] [place] [address], [place] [address]. All rights reserved. This information is not [...] blue color of the hand or foot 4322-2921 [employer] [address] [place] [address], [place] [address]. All rights reserved. This information is not intended as a substitute for professional medical care. Always follow yourhealthcare professional's instructions. Additional Information VACCINATE! IT SAVES LIVES! Members of the community who have not yet received the COVID-19 vaccine and would like to receive it can visit one of [facility] vaccine clinics. There are many vaccine clinic locations within the [facility]. For locations and available times, please visit www.[email or web address]. It is important to note that some COVID mobile vaccine clinics are held outdoors and may be canceled in rainy orstormy conditions. To learn more about pediatric vaccinations (ages 5-11), we invite you to visit the [facility] webpage. https://www.[facility].org/pages/0146-Lhogy-Qaejfgaxlft-Psmgbvjocr-Bexst-Yrt stions.htmlTo learn more about the COVID-19 vaccine, we invite you to visit the [facility] website for a list of frequently asked questions. [email or web address]/[email or web address] _Asked-Questions.pdf [place] [facility] Patient Portal Access Instructions: Stay connected with your healthcare team and access your personal medical information anytime with the [facility] Patient Portal. If you would like a full copy of your medical records please contact the [facility] Medical Records Department Friday through Friday between 8a.m. and 4:30p.m. Please follow the directions below to access the portal: 1.Access the email account you provided upon registration to the [facility].2.Look for an invitation email from [facility].3.Open the email and access the invitation link: Accept Invitation to [facility]4.Fill in the required vegas to create your account. Sign into [email or web address] with your username and password that you [...] you will allow to register on the [facility] Patient Portal for access to your information. You can also access the [facility] Patient Portal on the eSNF randal. Simply click on Health Records under 121cast and then click on the DriverSide logo. HOW TO SAFELY DISPOSE OF PRESCRIPTION [...] Call your local pharmacy or go to http://WorldViz.GetAutoBids/3H2Dc8w to find one close to you.3.Make use of household items: Use cat litter or old coffee grounds to dispose medications if other options arenot available. Mix your drugs with these household products, seal them in an airtight container andthrow it into the garbage. Call [facility]: [phone] to be sure your drugs can be [...] aware that I should contact my doctor. Patient/Sap Security Architect Signature: Date/Time: Relationship to Patient: Witness Name/Signature: Date/Time: [facility]12-17-2022 Note ORIGINAL EXAMINATION: CT OF THE [...] Sign Date: 06/01/2022 12:00:43 AM Ordering Provider: [place] [facility]12-12-2022 Hospital Discharge instructions Patient Education 05/27/2022 [...] humidified air to open blocked nasal passages. assisted living coordinator a hot shower or usea vaporizer. Be [...] mouth Spotted, red, or very sore throat [phone] [employer] [address] [place] [address]. All rights reserved. This information is not intended as a substitute for professional medical care. Always follow yourhealthcare professional's instructions. Follow Up Care 05/27/2022 17:56:54 With:Go to emergency room if symptoms worsen Address:Unknown When:2-4 days With:Call Physician Referral Address:Unknown When:2-4 days [facility] 12-12-2022 Note ORIGINAL EXAMINATION: ONE XRAY [...] by: Rochelle Hinkle MD Preliminary Report By: Ayza Taimur Electronically signed By Rochelle Hinkle MD Dictated Date: 05/27/2022 7:09:36 PM Prelim Date: 05/27/2022 7:10:37 PM Sign Date: 05/27/2022 7:25:51 PM Ordering Provider: LEORA KHAN [facility] Brettjessica [id number] Note Discharge Instructions Thank you for allowing [place] to assist you with your healthcare needs. [...] humidified air to open blocked nasal passages. assisted living coordinator a hot shower or usea vaporizer. Be [...] mouth Spotted, red, or very sore throat 3211-5188 [employer]. [address] [place] [address], [place] [address]. All rights reserved. This information is not intended as a substitute for professional medical care. Always follow yourhealthcare professional's instructions. Additional Information VACCINATE! IT SAVES LIVES! Members of the community who have not yet received the COVID-19 vaccine and would like to receive it can visit one of [facility] vaccine clinics. There are many vaccine clinic locations within the [facility]. For locations and available times, please visit [email or web address]. It is important to note that some COVID mobile vaccine clinics are held outdoors and may be canceled in rainy orstormy conditions. To learn more about pediatric vaccinations (ages 5-11), we invite you to visit the [facility] webpage. https://www.[facility].org/pages/5225-Gsspv-Hlhsxvjjatb-Jxjvlxyucp-Dlcyv-Alu stions.htmlTo learn more about the COVID-19 vaccine, we invite you to visit the [place] website for a list of frequently asked questions. [email or web address]/[email or web address]-Idhxodyjel _Asked-Questions.pdf [facility] Patient Portal Access Instructions: Stay connected with your healthcare team and access your personal medical information anytime with the [facility] Patient Portal. If you would like a full copy of your medical records please contact the [facility] Medical Records Department Friday through Friday between 8a.m. and 4:30p.m. Please follow the directions below to access the portal: 1.Access the email account you provided upon registration to the hospital.2.Look for an invitation email from [facility].3.Open the email and access the invitation link: Accept Invitation to [facility]4.Fill in the required vegas to create your account. Sign into [email or web address] with your username and password that you [...] you will allow to register on the [facility] Patient Portal for access to your information. You can also access the [facility] Patient Portal on the [employer]. Simply click on Health Records under 121cast and then click on the DriverSide logo. HOW TO SAFELY DISPOSE OF PRESCRIPTION [...] Call your local pharmacy or go to http://WorldViz.GetAutoBids/8M5Ff0l to find one close to you.3.Make use of household items: Use cat litter or old coffee grounds to dispose medications if other options arenot available. Mix your drugs with these household products, seal them in an airtight container andthrow it into the garbage. Call [facility]: [phone] to be sure your drugs can be [...] aware that I should contact my doctor. Patient/Sap Security Architect Signature: Date/Time: Relationship to Patient: Witness Name/Signature: Date/Time: [facility]12-12-2022 Note ORIGINAL EXAMINATION: ONE XRAY VIEW [...] Sign Date: 05/27/2022 7:25:51 PM Ordering Provider: [facility]09[facility]30[facility]2022 Hospital Discharge instructions Patient Education 03/15/2022 00:01:33 [...] the ears or bruising around the eyes 2922-5981 [employer]. [address] [place] [address], [place] [address]. All rights reserved. This information is not intended as a substitute for professional medical care. Always follow yourhealthcare professional's instructions. Follow Up Care 03/14/2022 22:45:58 With:RHONDA ERICKSON Address: [address] [place] [phone] Business (1) When:2-4 days With:Call Physician Referral Address:Unknown [facility]:2-4 days [facility] Note Discharge Instructions Thank you for allowing [place] to assist you with your healthcare needs. The following is importantdischarge information regarding your hospital visit. Diagnosis from Today's Visit Headache What to Do Next Instructions from Your Care Team No qualifying data available. Post Acute Orders No qualifying data available. You Need to Schedule the Following Appointments Follow Up with RHONDA ERICKSON When Within 2-4 days Where: [address] [place] [address] [phone] Business (1) Follow Up with Call Physician [...] the ears or bruising around the eyes [phone] [employer]. [address] [place] [address], [place] [address]. All rights reserved. This information is not intended as a substitute for professional medical care. Always follow yourhealthcare professional's instructions. Additional Information VACCINATE! IT SAVES LIVES! Members of the community who have not yet received the COVID-19 vaccine and would like to receive it can visit one of [facility] vaccine clinics. There are many vaccine clinic locations within the [facility]. For locations and available times, please visit [email or web address]. It is important to note that some COVID mobile vaccine clinics are held outdoors and may be canceled in rainy orstormy conditions. To learn more about pediatric vaccinations (ages 5-11), we invite you to visit the [facility] webpage. https://www.[email or web address].org/pages/3935-Vtyof-Jmexfakppwx-Haxogbrfaj-Pzpwe-Mko stions.htmlTo learn more about the COVID-19 vaccine, we invite you to visit the [place] website for a list of frequently asked questions. [email or web address] _[email or web address]-Questions.pdf [facility] Patient Portal Access Instructions: Stay connected with your healthcare team and access your personal medical information anytime with the [facility] Patient Portal. If you would like a full copy of your medical records please contact the [facility] Medical Records Department Friday through Friday between 8a.m. and 4:30p.m. Please follow the directions below to access the portal: 1.Access the email account you provided upon registration to the [facility].2.Look for an invitation email from [facility].3.Open the email and access the invitation link: Accept Invitation to [facility]4.Fill in the required vegas to create your account. Sign into [email or web address] with your username and password that you [...] you will allow to register on the [facility] Patient Portal for access to your information. You can also access the [facility] Patient Portal on the [employer]. Simply click on Health Records under HealthData and then click on the DriverSide logo. HOW TO SAFELY DISPOSE OF PRESCRIPTION [...] Call your local pharmacy or go to http://[email or web address]/8C7Lf3x to find one close to you.3.Make use of household items: Use cat litter or old coffee grounds to dispose medications if other options arenot available. Mix your drugs with these household products, seal them in an airtight container andthrow it into the garbage. Call [facility]: [phone] to be sure your drugs can be [...] aware that I should contact my doctor. Patient/Sap Security Architect Signature: Date/Time: Relationship to Patient: Witness Name/Signature: Date/Time: [facility]09-29-2022 Note ORIGINAL EXAMINATION: CT OF THE [...] 03/14/2022 11:55:41 PM Ordering Provider: JORGITO CANNON [facility]09-29-2022 Note ORIGINAL EXAMINATION: CT OF THE [...] Sign Date: 03/14/2022 11:55:41 PM Ordering Provider: [facility]-23-2022 Hospital Discharge instructions* Discharge Instructions* Joseluis Maier [...] Everywhere. * Head Injury: Closed: General Info (Vincentian) documented in this [facility] Work Phone: 1(632) 539-300707-21-2022 History of Present illness Narrative* Ibrahima Schaefer [...] repair of his recurrent ventral hernia at [facility] performed by Dr. Aaron Duque. The [...] any other maneuvers. The patient presented to [facility] emergency department on [...] entered by the nurse and reviewed by nc Nursing Notes: Charlie Mera RN 01/03/2022 11:28 [...] applicable. Charlie Mera RN [facility] Note* Charlie Mera RN - 01/03/2022 [...] None Charlie Mera RN [facility] Instructions* Patient Instructions* Charlie Mera RN - 01/03/2022 10:45 AM EDT The following instructions are important for you related to your office visit today with the [facility] General Surgeons. Instructions After HEMATOMA/SEROMA ASPIRATION [...] you should contact our office immediately @ [phone] and ask to be transferred to the General Surgery department. [facility] Hospital Discharge instructions Patient Education 12/21/2021 22:26:10 [...] blue color of the hand or foot [phone] [employer]. [address] [place] [address]. All rights reserved. This information is not intended as a substitute for professional medical care. Always follow yourhealthcare professional's instructions. Follow Up Care 12/21/2021 20:37:47 With:AARON DUQUE MD, Surgery Address: [address] [facility] [place] [place] [address]- [phone] When:2-4 days [facility] 07-08-2022 Emergency department Discharge summary Discharge Instructions Thank you for allowing [place] to assist you with your healthcare needs. The following is importantdischarge information regarding your hospital visit. Diagnosis from Today's Visit Hematoma Abdominal pain What to Do Next Instructions from Your Care Team No qualifying data available. Post Acute Orders No qualifying data available. You Need to Schedule the Following Appointments Follow Up with AARON DUQUE MD, Surgery When Within 2-4 days Where: [address] [facility] [address] [place] [address] [phone] Allergies Keflex Keppra (Rash) Tape, Paper (Rash) morphine (Rash) naproxen Medications Please ask your primary doctor or pharmacist before taking any other medication not listed, including over the counter drugs, herbal medications, vitamins and or supplements as they may interact [facility] medications. What How Much When Why Instructions Last Dose New acetaminophen-hydrocodone (Catawba 325- 5 mg oral tablet) 1 tab(s) [...] blue color of the hand or foot [phone] [employer]. [address] [place] [address]. All rights reserved. This information is not intended as a substitute for professional medical care. Always follow yourhealthcare professional's instructions. Additional Information VACCINATE! IT SAVES LIVES! Members of the community who have not yet received the COVID-19 vaccine and would like to receive it can visit one of [facility] vaccine clinics. There are many vaccine clinic locations within the [facility]. For locations and available times, please visit [email or web address]. It is important to note that some COVID mobile vaccine clinics are held outdoors and may be canceled in rainy orstormy conditions. To learn more about pediatric vaccinations (ages 5-11), we invite you to visit the [facility] webpage. https://www.[email or web address].org/pages/1738-Rkdxc-Roiuuoxkchh-Bmoqbbotls-Hjcgt-Qmx stions.htmlTo learn more about the COVID-19 vaccine, we invite you to visit the [place] website for a list of frequently asked questions. [email or web address]-[email or web address] _Asked-Questions.pdf [facility] Patient Portal Access Instructions: Stay connected with your healthcare team and access your personal medical information anytime with the [place] [facility] Patient Portal. If you would like a full copy of your medical records please contact the [facility] Medical Records Department Friday through Friday between 8a.m. and 4:30p.m. Please follow the directions below to access the portal: 1.Access the email account you provided upon registration to the [facility].2.Look for an invitation email from [facility].3.Open the email and access the invitation link: Accept Invitation to [facility]4.Fill in the required vegas to create your account. Sign into [email or web address] with your username and password that you [...] you will allow to register on the [employer] Patient Portal for access to your information. You can also access the [employer] Patient Portal on the eSNF randal. Simply click on Health Records under [employer]cast and then click on the DriverSide logo. HOW TO SAFELY DISPOSE OF PRESCRIPTION [...] Call your local pharmacy or go to http://[employer]/4Z6Fn4i to find one close to you.3.Make use of household items: Use cat litter or old coffee grounds to dispose medications if other options arenot available. Mix your drugs with these household products, seal them in an airtight container andthrow it into the garbage. Call [facility]: [phone] to be sure your drugs can be [...] aware that I should contact my doctor. 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 [address] [place] [address], [place] [address]. All rights reserved. This information is not intended as a substitute for professional medical care. Always follow yourhealthcare professional's instructions. Follow Up Care 11/30/2021 18:59:24 With:AARON DUQUE Address: [address] [place] [address]- [phone] Business (1) When:2-4 days Comments:Schedule appointment for follow-up.Ice or cool compresses to the swollen, painful area.Use Tylenol,Advil or Aleve for pain as needed.Use Catawba as prescribed for severe pain as needed.Return to the ED if symptoms worsen [facility] 06-10-2022 Evaluation + Plan note Future Scheduled Tests Laboratory* Basic Metabolic Panel 11/23/21 * Carbamazepine Level 11/23/21 * Complete Metabolic Panel 11/23/21 [facility] 06-10-2022 Evaluation + Plan note Future Appointments Future Scheduled Tests Laboratory* Basic Metabolic Panel 11/23/21 * Carbamazepine Level 11/23/21 * Complete Metabolic Panel 11/23/21 [facility] 06-10-2022 Evaluation + Plan note Future Scheduled Tests Laboratory* Basic Metabolic Panel 11/23/21 * Carbamazepine Level 11/23/21 * Complete Metabolic Panel 11/23/21 Radiology* IR Drainage Peritoneal Abscess Guide 08/20/22 [facility] 04-23-2022 Hospital Discharge instructions Patient Education [...] the waistline) or spreads to the back [phone] [employer]. [address] [place] [address], [place] [address]. All rights reserved. This information is not intended as a substitute for professional medical care. Always follow yourhealthcare professional's instructions. Follow Up Care 10/06/2021 14:45:39 With:AARON DUQUE MD, Surgery Address: [address] [place] [address]- [phone] When:2-4 days [facility] Discharge summary Author Guevara Choi [facility] Note Date/Time December 07, 2024 12:1 3am [facility] Medical Records Department [address] [place] [address] Emergency Department Summary 12/07/24 MR#: [id number] Acct: [id number] Name: PATRICK KOROMA Rep #:[id number] : 1980 44 From: Gueavra Choi MD PCP: ERIC Anaya Status:REG ER Location: ED HPI History of Present Illness Chief Complaint: Upper Extremity Injury Informant: patient Narrative Narrative: During tear down of a car level traction at the [facility], patient states he smashed his right thumb between 2 metal poles on accident. Jpiki-cnqo-xyljrwvc. [facility] Medical History Seroma after procedure Influenza [...] abnormality of the right hand. Reading Location: [facility] Discharge Plan Triage Chief Complaint: Upper Extremity Injury ED Provider: Guevara Choi Dx/Rx/DC Orders Clinical Impression: Contusion of right thumb with damage to nail, initial encounter Instructions: ED Finger or Toe Contusion Prescriptions: No Action NK Primary Care Provider: Viola Starkey NP Referrals: Viola Starkey NP, YULI-C [Primary Care Provider] - 10-14 Days if not better Print Language: Vincentian Disposition Disposition: Home, Self Care What to do if you have Problems For any increased pain, shortness of breath, bleeding, nausea or vomiting, chestpain, or any unexpected problems, contact your Primary Care Provider. Call [facility] ([phone]) or report to the closest Emergency Room. Call 911 if necessary. 12/07/24 0013 <Electronically signed by Guevara Choi MD> Cosigner Signature (if applicable): CC: YULI-Marielos Starkey ~ Signed [facility] Work Phone: Discharge summary Author Guero Baker [facility] Note Date/Time March 08, 2025 12:58am [facility] Medical Records Department [address] [place] [address] Emergency Department Summary 03/08/25 MR#: [id number] Acct: [id number] Name: PATRICK KOROMA Rep #:[id number] : 1980 45 From: Guero Baker DO PCP: ERIC Anaya Status:DEP ER Location: ED HPI History of Present Illness Chief Complaint: Seizure Informant: patient and spouse/S.O. Narrative Narrative: Patient is a 45-year-old male with remote history of seizure disorder. He reportedly has not had a seizure for 3 years and does not take antiepileptic medication. He also has a history of a chronic ventral hernia. He states this evening he was sitting on the couch watching a movie. And then the next he remembers he is waking up. His reports that she noticed his head starting to margarita and that progressed to further shaking. Patient denies loss of bowel or bladder control. He states that he has not been sick in any way recently he hasnot started or stopped any medications and he denies any alcohol use. As he hasnot had a seizure for multiple years he presents for evaluation [facility] Medical History (Updated 03/08/25 @ 01:[address] Gueor Baker, DO) Abdominal pain Seroma after procedure Influenza due to influenza virus, type A, human Contact with or suspected exposure to other viral communicable disease Sprain of left foot Left ankle sprain Strain of left knee Contusion of left knee Seizures Home Medications ?Medication ?Instructions ?Recorded ?Last Taken ?Type NK 03/07/25 Unknown History Allergy/AdvReac Type Severity Reaction Status Date / Time adhesive tape Allergy Hives Verified 03/07/25 22:42 cephalexin monohydrate (From Allergy Anaphylaxis Verified 03/07/25 22:42 Keflex) levetiracetam (From Keppra) Allergy Hives Verified 03/07/25 22:42 morphine Allergy Shortness Verified 03/07/25 22:42 of breath naproxen (From Naprosyn) Allergy Hives Verified 03/07/25 22:42 Family History Grandmother Arthritis Mother Arthritis Seizures Father Colon cancer Diabetes Brother Heart disease Surgical History H/O hernia repair History of appendectomy Social History household members: spouse Smoking Status: Current every day smoker tobacco type: cigarettes alcohol intake: never ROS ROS ED Constitutional Constitutional ED: Denies chills or fever(s) Eyes Eyes: Denies change in vision ENT ENT ED: Denies rhinorrhea or sore throat Cardiovascular Cardiovascular: Denies chest pain Respiratory/Chest Respiratory/Chest: Denies cough or dyspnea Gastrointestinal Gastrointestinal: Reports abdominal pain; Denies diarrhea, nausea or vomiting Genitourinary Genitourinary ED: Denies dysuria Musculoskeletal Musculoskeletal: Denies back pain, myalgias or neck pain Integumentary Denies rash Neurologic Neurologic: Reports headache(s); Denies paresthesias or weakness Hematologic/Lymphatic Hematologic/Lymphatic: Denies easy bleeding or easy bruising EXAM Physical Exam Const Vital Signs: 03/07/25 22:38 03/07/25 23:38 03/08/25 00:56 Temperature 98.4 F 98.0 F Temperature Source Oral Pulse Rate 90 85 70 Respiratory Rate 14 16 16 Blood Pressure 159/87 H 148/89 H 122/81 H Blood Pressure Mean 111 108 94 Pulse Ox 98 99 98 Oxygen Delivery Method Room Air Room Air Positive well nourished and well developed General Appearance ED: well developed; Negative for pallor HEENT HEENT Narrative: Normocephalic atraumatic No tongue or cheek biting noted No findings in the posterior pharynx to suggest infection Eyes PERRL and EOMs intact bilaterally General Eye ED: Negative for scleral icterus Neck supple Neck Narrative: No nuchal rigidity or meningeal sign Chest Wall palpation of chest normal Resp normal respiratory effort and clear to auscultation bilaterally Cardio regular rate and regular rhythm GI non-distended and no masses GI Narrative: There is a ventral hernia noted that is reducible in nature Otherwise no voluntary guarding rigidity or pulsatile mass Auscultation: normoactive bowel sounds Palpation: soft Extremity normal to inspection Neuro oriented x3, CN's II-XII intact bilaterally and no sensory deficits noted Neuro Narrative: GCS of 15 Cranial nerves II through XII are grossly intact without focal neurologic deficit No pronator drift no dysmetria no truncal ataxia NIH stroke scale score of 0 Sensorium / Orientation: alert Motor Exam: strength 5/5 throughout Psych mental status grossly normal Skin no rashes or lesions noted and no wounds General Skin Exam: Negative for jaundice or pallor MDM MDM MDM Narrative Medical decision making narrative: Patient arrived to the ER hypertensive but otherwise with stable vitals. Patient and reported a breakthrough seizure. Patient does have a history of seizure disorder but has not had a seizure for multiple years. In order to assess for potential brain mass versus spontaneous subarachnoid or subdural hemorrhage a CT of the head was obtained. In order to assess for other potential causes such as acute blood loss anemia acute kidney injury or electrolyte abnormality lab work was obtained. Chest x-ray was ordered to rule out aspiration or pneumonia as a cause. Chest x-ray revealed no acute lung pathology. Lab work revealed no clinically significant findings. The patient had no bouts of seizure activity while in the ER. On reevaluation he is restingcomfortably and neurologic exam remains normal. Therefore at this time with overall negative workup no recurrent seizure activity and the patient at a baseline mental status without neurologic findings there is no need for further intervention or admission in the ER and is otherwise safe for discharge home History & Record Review Discussion w/independent historian: Patient and Significant other Lab Data Attestation: I reviewed the patient's lab results. Labs: Laboratory Results - last 24 hr 03/07/25 23:20 WBC 9.6 RBC 4.75 Hgb 14.9 Hct 43.3 MCV 91.2 MCH 31.4 MCHC 34.4 RDW Std Deviation 43.3 RDW Coeff of Nory 13.0 Plt Count 312 MPV 9.9 Immature Gran % (Auto) 0.800 Neut % (Auto) 53.7 Lymph % (Auto) 34.8 [place] % (Auto) 6.0 Eos % (Auto) 3.6 Baso % (Auto) 1.1 H Absolute Neuts (auto) 5.2 Absolute Lymphs (auto) 3.35 Nucleated RBC % 0 Sodium 136 Potassium 4.1 Chloride 102 Carbon Dioxide 22.2 Anion Gap 12 BUN 11 Creatinine 0.73 Estim Creat Clear Calc 199.80 Est GFR (MDRD) Non-Af 114 BUN/Creatinine Ratio 15.2 Glucose 115 H Lactic Acid 1.6 Calcium 9.0 Magnesium 2.1 Radiography Diagnostic Testing: Clinical Impression(s) from Imaging Studies Brain CT 03/07/25 23:13 IMPRESSION: Unremarkable head CT. Reading Location: [id number] Chest X-Ray 03/07/25 23:40 IMPRESSION: No acute cardiopulmonary disease. Reading Location: [id number] Chest x-ray as interpreted by the emergency medicine physician reveals no acute infiltrate pneumothorax or pleural effusion Discharge Plan Triage Chief Complaint: Seizure ED Provider: Guero Baker Dx/Rx/DC Orders Clinical Impression: Breakthrough seizure, Ventral hernia, Hypertension Instructions: Seizure Affects on Body, Self-Care for Seizures Prescriptions: No Action NK Primary Care Provider: Viola Starkey NP Referrals: Murphy Dillard MD [Non-Staff -Ordering Privileges, Neurology] Viola Starkey INSTRUMENT PROCESSING TECH, INSTRUMENT PROCESSING TECH-C [Primary Care Provider, Family Practice] Activity Restrictions/Additional Instructions: Your workup revealed no obvious cause for a breakthrough seizure such as infection brain mass/bleed or electrolyte abnormality. Please follow-up with your family doctor as well as urology to discuss restarting medication and return to the ER should you have any further concerns. Print Language: Vincentian Disposition Disposition: Home, Self Care Discharge Date/Time: 03/08/25 00:58 What to do if you have Problems For any increased pain, shortness of breath, bleeding, nausea or vomiting, chestpain, or any unexpected problems, contact your Primary Care Provider. Call [facility] ([phone]) or report to the closest Emergency Room. Call 911 if necessary. 03/08/25 0130 <Electronically signed by Guero Baker DO> Cosigner Signature (if applicable): CC: INSTRUMENT PROCESSING TECH-C Viola Starkey ~ Signed [facility] Work Phone: Evaluation + Plan note No data available for this section [facility] Evaluation + Plan note Future Appointments Appointment Date:11/01/2021 02:10:00 PM Scheduled Provider:AARON DUQUE MD Location:[facility] Surg [facility] Appointment Type:GS OV Check after Test [facility] Evaluation + Plan note Future Appointments [facility] Evaluation + Plan note Future Appointments Appointment Date:12/06/2021 01:40:00 PM Scheduled Provider:AARON DUQUE MD Location:Gen Surg [facility] Appointment Type:GS OV Post Op Appointment Date:02/22/2022 10:30:00 AM Scheduled Provider:APPLE CONNORS Location:[facility] Appointment Type:PC Wellness Annual Future Scheduled Tests Laboratory* Basic Metabolic Panel 11/23/21 * Carbamazepine Level 11/23/21 * Complete Metabolic Panel 11/23/21 [facility] Evaluation + Plan note Future Appointments Appointment Date:12/27/2021 01:20:00 PM Scheduled Provider:AARON DUQUE MD Location:Gen Surg [facility] Appointment Type:GS OV Follow Up Appointment Date:02/22/2022 10:30:00 AM Scheduled Provider:APPLE CONNORS Location:[facility] Appointment Type:PC Wellness Annual Future Scheduled Tests Laboratory* Basic Metabolic Panel 11/23/21 * Carbamazepine Level 11/23/21 * Complete Metabolic Panel 11/23/21 [facility] Evaluation + Plan note Future Appointments Appointment Date:07/01/2022 03:20:00 PM Scheduled Provider:AARON DUQUE MD Location:Gen Surg [facility] Appointment Type:GS OV Future Scheduled Tests Laboratory* Basic Metabolic Panel 11/23/21 * Carbamazepine Level 11/23/21 * Complete Metabolic Panel 11/23/21 [facility] Evaluation + Plan note Future Appointments Appointment Date:07/25/2022 10:00:00 AM Scheduled Provider:AVANI CANTOR Location:[facility] Appointment Type:GS OV Post Op Future Scheduled Tests Laboratory* Basic Metabolic Panel 11/23/21 * Carbamazepine Level 11/23/21 * Complete Metabolic Panel 11/23/21 [facility] Evaluation noteNo assessment information available [facility] Work Phone: Evaluation note* Diagnosis Hematoma- Primary Contusion of unspecified site Incisional hernia, without obstruction or gangrene Incisional hernia without mention of obstruction or gangrene [facility] Diagnosis Closed head injury, initial encounter- Primary documented in this encounter [facility] Work Phone: Evaluation note* Diagnosis Injury of right wrist, initial encounter- Primary documented in this encounter [facility] Work Phone: evaluation note* Diagnosis Acute pain of right shoulder- Primary Strain of right shoulder, initial encounter documented in this encounter [facility] Work Phone: evaluation note* Diagnosis Onset Date Resolution Status Infected hernioplasty mesh a [facility] Work Phone: Evaluation note* Diagnosis Left lower quadrant abdominal pain- Primary [facility] Diagnosis Preoperative examination- Primary Preoperative examination, unspecified Infected hernioplasty mesh, sequela documented in this encounter [facility] note* Diagnosis Abdominal pain, unspecified abdominal location- Primary Preoperative examination Preoperative examination, unspecified Infected hernioplasty mesh, sequela documented in this encounter [facility] note* Diagnosis Pre-op evaluation- Primary Preoperative examination, unspecified Post traumatic seizure disorder (HCC) Post traumatic seizures Morbid obesity (HCC) Morbid obesity Tobacco use Tobacco use disorder Preoperative examination Preoperative examination, unspecified Infected hernioplasty mesh, sequela documented in this encounter [facility] note* Diagnosis Left lower quadrant abdominal pain- Primary documented in this encounter [facility] note* Diagnosis Left lateral abdominal pain- Primary Abdominal pain, unspecified site documented in this encounter [facility] note* Diagnosis Seizure (CMS/HCC) (HCC)- Primary Other convulsions documented in this encounter [facility] note* Diagnosis Periumbilical abdominal pain- Primary Abdominal pain, periumbilic History of abdominal hernia documented in this encounter [facility] Work Phone: Evaluation note* Diagnosis History of abdominal hernia documented in this encounter [facility] Work Phone: Hospital Discharge instructions No data available for this section [facility] Hospital Discharge instructions* Attachments The following attachments cannot be sent through Care Everywhere. * RICE: General Info (Vincentian) [facility] Work Phone: Hospital Discharge instructions* Attachments The following attachments cannot be sent through Care Everywhere. * Shoulder Sprain (Vincentian) [facility] Work Phone: Hospital Discharge instructions Additional Instructions Please keep your appointment next week with [facility] Work Phone: Hospital Discharge instructions Additional Instructions Your x-ray right shoulder negative. Your clinical exam concerns for biceps tendinitis of the shoulder region. Continue ibuprofen. Finish prednisone as prescribed.[facility] Work Phone: Hospital Discharge instructions Additional Instructions You may wear the sling for comfort but exercise your right shoulder at least 3 times a day to prevent frozen shoulder. Bsru-ljz-fprgoxb medications as needed for pain. Follow-up with orthopedics if not improving.[facility] Work Phone: Hospital Discharge instructionsAdditional Instructions Call the [facility]. Get the name and office number of the general surgeons there that are hernia surgical instrument repair specialist. Call their office to get an appointment. Motrin and Tylenol for pain.[facility] Work Phone: Hospital Discharge instructionsAdditional Instructions Please follow-up with your family doctor and/or surgeon for repeat evaluation and return to the ER should you have any further [facility] Work Phone: Hospital Discharge instructionsAdditional Instructions [...] Pain management for further outpatient evaluation and management.[facility] Work Phone: Hospital Discharge instructionsAdditional Instructions Your workup revealed no obvious cause for a breakthrough seizure such as infection brain mass/bleed or electrolyte abnormality. Please follow-up with your family doctor as well as urology to discuss restarting medication and return to the ER should you have any further concerns. [facility] Work Phone: Hospital Discharge instructionsAdditional Instructions Please follow-up with your surgeon as previously directed and return to the ER if you have any further concerns or worsening of symptomsWBarnesville [facility] Work Phone: Progress note No data available for this section [facility] Reason for referral (narrative)No reason for referral information availableSt. [facility] Work Phone: Reason for visit Narrative* Consultation (Routine) - Authorized Specialty Diagnoses / Procedures Referred By Contac t Referred To Contact General Surgery Diagnoses History of abdominal hernia Jonathan Gonzalez MD [address] [facility] [address] [place] [address] Phone: tel: fax: Stephon Benavides MD [address] [facility] [address] [place] [address] Phone: tel: fax: Referral ID Status Reason Start Date Expiration Date Visits Requested Visits Authorized [id number] Authorized Specialty Services Required 07/29/2024 07/29/2025 1 1 [facility] Work Phone: summary note* Daksha Love: PERFORM Event Display: Patient Summary Documents Authored Date: [facility] Suatrur note* VERONIKA Connors: PERFORM Event Display: Patient Summary Documents Authored Date: [id number] [facility] Suluajh note* VERONIKA Connors: PERFORM Event Display: Patient Summary Documents Authored Date: [id number] [facility] Suoeole note* VERONIKA Carmona: PERFORM Event Display: Patient Summary Documents Authored Date: [id number] [facility] Summasg of episode note* Barbara Michele RN: PERFORM Event Display: Outpatient Patient Summary Authored Date: [id number] Discharge Instructions Thank you for allowing [facility] to assist you with your healthcare needs. The following is importantdischarge information regarding your hospital visit. Your Care Team AARON DUQUE MD Your Diagnosis Acute post-operative pain What to do next Follow Up Appointments Follow Up with AARON DUQUE MD, Surgery When In 2 weeks Why: Call office to schedule follow up appointment. Where: [address] [facility] [address] [place] [address]- [phone] The Following Activity and Diet Have Been Ordered for You Discharge Activity - Ordered -- Sexual Long Barn Restricted No bending, twisting, crawling or squatt, [...] When Why Instructions Last Dose New acetaminophen-hydrocodone ([place] 325- 5 mg oral tablet) 1 tab(s) by mouth Every 4 hours as needed for Pain, scale 4-6 Acute post-operative pain Duration: 7 Days Pickup at [facility]/pharmacy #[id number] Unchanged carBAMazepine (TEGretol 200 mg oral tablet) 3 tab(s) by mouth Two (2) times a day Seizure Post-operative state s/p umbilical hernia repair, possible seizure following surgery Pharmacy Information [facility]/pharmacy #[id number]: [address], [place] [id number] [phone] Please take this list to your next [...] as possible. If the spirometer includes a nutritional health coach indicator, use this to guide [...] 10/13/2007 Document Revised: 06/25/2018 Document Reviewed: 04/15/2018 Icera Patient Education 2020 [employer] Surgical Drain Home Care Surgical drains [...] placed at your back, or any other cftf-mh-umjnz area, ask another person to assist you [...] and water are not available, use hand wedding planner. 3. Remove the old dressing. Avoid using [...] and water are not available, use hand wedding planner. 3. Loosen any pins or clips that [...] placed at your back, or any other irmf-yp-bzean area, ask another person to assist you. Contact your health care provider if you have redness, swelling, or pain around your drain area. This information is not intended to replace advice given to you by your health care provider. Make sure you discuss any questions you have with your health care provider. Document Released: 05/30/2001 Document Revised: 07/07/2019 Document Reviewed: 07/07/2019 ElseNifty After Fifty Patient Education 2019 [employer]. Ryan Pantoja Drain Patient Education After surgery, [...] Document Reviewed: 06/03/2014 ExitCare Patient Information 2015 [employer]. This information is not intended to replace [...] garbage bag. Soap and water, or hand wedding planner. Wound cleanser or salt-water solution (saline). New [...] and water are not available, use hand wedding planner. 3. Set up a clean station for [...] and water are not available, use hand wedding planner. Clean your wound Wear gloves, protective clothing, [...] and water are not available, use hand wedding planner. Apply new dressing Wear gloves, protective clothing, [...] and water are not available, use hand wedding planner. 8. Turn the pump back on. The sponge dressing should collapse. Do not change the settings on the machine without talking to a health care provider. 9. Replace the container in the pump that collects fluid if it is full. Replace the container per the assistant restaurant general manager's instructions or at least once a [...] all clamps are open. Do not use tcsj-rgk-yhtbrpe medicated or antiseptic creams, sprays, liquids, or [...] 08/24/2012 Document Revised: 09/24/2019 Document Reviewed: 08/20/2019 Icera Patient Education 2020 [employer] Inc. Nausea and Vomiting, Adult Nausea is [...] water added (diluted fruit juice). Eat bland, nxlc-bu-pjpiim foods in small amounts as you are able. These foods include bananas, applesauce, rice, lean meats, toast, and crackers. Avoid fluids that contain a lot of sugar or caffeine, such as energy drinks, sports drinks, and soda. Avoid alcohol. Avoid spicy or fatty foods. General instructions Take nkjf-seu-vxuvknu and prescription medicines only as told by your health care provider. Drink enough fluid to keep your urine pale yellow. Wash your hands often using soap and water. If soap and water are not available, use hand wedding planner. Make sure that all people in your [...] eating and drinking to prevent dehydration. Take psea-yun-ouhupih and prescription medicines only as told by [...] 06/02/2006 Document Revised: 09/24/2019 Document Reviewed: 11/10/2018 Icera Patient Education 2020 [employer]. Monitored Anesthesia Care, Care After These instructions [...] before eating solid foods. General instructions Take yfrj-uzi-pyajrhw and prescription medicines only as told by [...] 09/22/2016 Document Revised: 08/31/2018 Document Reviewed: 09/22/2016 Icera Patient Education 2020 [employer]. Open Hernia Repair, Adult, Care After This [...] and water are not available, use hand wedding planner. ? Change your dressing as told by [...] urine clear or pale yellow. ? Take paka-uvl-kpieztd or prescription medicines. ? Eat foods that are high in fiber, such as fresh fruits and vegetables, whole grains, and beans. ? Limit foods that are high in fat and processed sugars, such as fried and sweet foods. Take vhug-gul-tlfsvyn and prescription medicines only as told by [...] 12/20/2005 Document Revised: 05/15/2018 Document Reviewed: 11/13/2016 ElseNifty After Fifty Patient Education 2020 I[employer]a Inc. Additional Information VACCINATE! IT SAVES LIVES! Members of the community who have not yet received the COVID-19 vaccine and would like to receive it can visit one of [facility] vaccine clinics. There are many vaccine clinic locations within the [facility]. For locations and available times, please visit [email or web address] It is important to note that some COVID mobile vaccine clinics are held outdoors and may be canceled in rainy or stormy conditions. To learn more about pediatric vaccinations (ages 5-11), we invite you to visit the [facility] webpage. [email or web address] [email or web address] learn more about the COVID-19 vaccine, we invite you to visit the [employer] website for a list of frequently asked questions. [email or web address] [facility] Patient Portal Access Instructions: Stay connected with your healthcare team and access your personal medical information anytime with the [facility] Patient Portal.If you would like a full copy of your medical records, please contact the [facility] Medical Records Department, Friday through Friday between 8a.m. and 4:30p.m. Please follow the directions below to access the portal: 1.Access the email account you provided upon registration to the hospital.2.Look for an invitation email from [facility].3.Open the email and access the invitation link: Accept Invitation to [facility]4.Fill in the required [place] to create your account. Sign into [email or web address] with your username and password that you [...] you will allow to register on the [facility] Patient Portal for access to your information. You can also access the [employer] Patient Portal on the eSNF randal. Simply click on Health Records under [employer] and then click on the [employer] logo. HOW TO SAFELY DISPOSE OF PRESCRIPTION [...] Call your local pharmacy or go to [email or web address] to find one close to you.3.Make use of household items: Use cat litter or old coffee grounds to dispose medications if other options arenot available. Mix your drugs with these household products, seal them in an airtight container andthrow it into the garbage. Call [facility]: [phone] to be sure your drugs can be [...] aware that I should contact my doctor. Patient/Sap Security Architect Signature: Date/Time: Relationship to Patient: Witness Name/Signature: Date/Time: [facility] Summary Purpose Family History No Family [...] No January 01, 2022 6:14pm Power of Mainframe Programmer Analyst No January 01 6:14pm Advance Directive Response Recorded Date/ Time Advance Directives No July 05, 2017 11:20pm Living Will No July 04 24 12:18am Power of Mainframe Programmer Analyst No July 04, 2023 12:18am Advance Directive Response Recorded Date/ Time Advance Directives No July 05, 2017 11:20pm Living Will No June 01, 023 1:14am Power of Mainframe Programmer Analyst No June 01, 2023 1:14am Advance Directive Response Recorded Date/ Time Living Will No August 24, 2024 10:40pm Power of Mainframe Programmer Analyst No August 24 10:40pm Advance Directives No July 06, 2017 12:20am Advance Directive Response Recorded Date/ Time Living Will No August 24, 2024 10:40pm Do you have a Healthcare Power of Mainframe Programmer Analyst? No August 24, 2024 10:40pm Living Will No September 19, 2024 9:34pm Do you have a Healthcare Power of Mainframe Programmer Analyst? No September 19, 2024 9:34pm Advance Directives No July 06, 2017 12:20am Advance Directive Response Recorded Date/ Time Living Will No August 24, 2024 10:40pm Do you have a Healthcare Power of Mainframe Programmer Analyst? No August 24, 2024 10:40pm Living Will No September 19, 2024 9:34pm Do you have a Healthcare Power of Mainframe Programmer Analyst? No September 19, 2024 9:34pm Do you have a Healthcare Power of Mainframe Programmer Analyst? No December 06, 2024 11:19pm Advance Directives No July 06, 2017 12:20am Advance Directive Response Recorded Date/ Time Living Will No August 24, 2024 10:40pm Do you have a Healthcare Power of Mainframe Programmer Analyst? No August 24, 2024 10:40pm Living Will No September 19, 2024 9:34pm Do you have a Healthcare Power of Mainframe Programmer Analyst? No September 19, 2024 9:34pm Do you have a Healthcare Power of Mainframe Programmer Analyst? No December 06, 2024 11:19pm Do you have a Healthcare Power of Mainframe Programmer Analyst? No December 08, 2024 11:45pm Advance Directives No July 06, 2017 12:20am Advance Directive Response Recorded Date/ Time Living Will No September 19, 2024 9:34pm Do you have a Healthcare Power of Mainframe Programmer Analyst? No September 19, 2024 9:34pm Do you have a Healthcare Power of Mainframe Programmer Analyst? No December 06, 2024 11:19pm Do you have a Healthcare Power of Mainframe Programmer Analyst? No December 08, 2024 11:45pm Do you have a Healthcare Power of Mainframe Programmer Analyst? No December 29, 2024 9:30pm Advance Directives No July 06, 2017 12:20am Advance Directive Response Recorded Date/ Time Do you have a Healthcare Power of Mainframe Programmer Analyst? No December 06, 2024 11:19pm Do you have a Healthcare Power of Mainframe Programmer Analyst? No December 08, 2024 11:45pm Do you have a Healthcare Power of Mainframe Programmer Analyst? No December 29, 2024 9:30pm Do you have a Healthcare Power of Mainframe Programmer Analyst? No January 25, 2025 10:34pm Advance Directives No July 06, 2017 12:20am Advance Directive Response Recorded Date/ Time Do you have a Healthcare Power of Mainframe Programmer Analyst? No December 06, 2024 11:19pm Do you have a Healthcare Power of Mainframe Programmer Analyst? No December 08, 2024 11:45pm Do you have a Healthcare Power of Mainframe Programmer Analyst? No December 29, 2024 9:30pm Do you have a Healthcare Power of Mainframe Programmer Analyst? No January 25, 2025 10:34pm Do you have a Healthcare Power of Mainframe Programmer Analyst? No February 17, 2025 10:06pm Advance Directives No July 06, 2017 12:20am Advance Directive Response Recorded Date/ Time Do you have a Healthcare Power of Mainframe Programmer Analyst? No December 06, 2024 11:19pm Do you have a Healthcare Power of Mainframe Programmer Analyst? No December 08, 2024 11:45pm Do you have a Healthcare Power of Mainframe Programmer Analyst? No December 29, 2024 9:30pm Do you have a Healthcare Power of Mainframe Programmer Analyst? No January 25, 2025 10:34pm Do you have a Healthcare Power of Mainframe Programmer Analyst? No February 17, 2025 10:06pm Do you have a Healthcare Power of Mainframe Programmer Analyst? No February 27, 2025 9:28pm Advance Directives No July 06, 2017 12:20am Advance Directive Response Recorded Date/ Time Do you have a Healthcare Power of Mainframe Programmer Analyst? No December 06, 2024 11:19pm Do you have a Healthcare Power of Mainframe Programmer Analyst? No December 08, 2024 11:45pm Do you have a Healthcare Power of Mainframe Programmer Analyst? No December 29, 2024 9:30pm Do you have a Healthcare Power of Mainframe Programmer Analyst? No January 25, 2025 10:34pm Do you have a Healthcare Power of Mainframe Programmer Analyst? No February 17, 2025 10:06pm Do you have a Healthcare Power of Mainframe Programmer Analyst? No February 27, 2025 9:28pm Do you have a Healthcare Power of Mainframe Programmer Analyst? No March 07, 2025 10:38pm Advance Directives No July 06, 2017 12:20am Advance Directive Response Recorded Date/ Time Do you have a Healthcare Power of Mainframe Programmer Analyst? No December 29, 2024 9:30pm Do you have a Healthcare Power of Mainframe Programmer Analyst? No January 25, 2025 10:34pm Do you have a Healthcare Power of Mainframe Programmer Analyst? No February 17, 2025 10:06pm Do you have a Healthcare Power of Mainframe Programmer Analyst? No February 27, 2025 9:28pm Do you have a Healthcare Power of Mainframe Programmer Analyst? No March 07, 2025 10:38pm Do you have a Healthcare Power of Mainframe Programmer Analyst? No March 24, 2025 9:44pm Advance Directives No July 06, 2017 12:20am [...] 9:20pm abdominal pain February 27, 2025 8:50pm Chief Complaint Admit Date hand injury December 06, 2024 11:1 9pm HERNIA December 08, 2024 11:3 3pm ABD PAIN December 29, 2024 9:21 pm ABD PAIN January 25, 2025 10 :22pm Abd pain February 17, 2025 9:20pm abdominal pain February 27, 2025 8:50pm SEIZURE March 07, 2025 10:38pm Chief Complaint Admit Date ABD PAIN December 29, 2024 9:21 pm ABD PAIN January 25, 2025 10 :22pm Abd pain February 17, 2025 9:20pm abdominal pain February 27, 2025 8:50pm SEIZURE March 07, 2025 10:38pm Abd pain March 24, 2025 7: 53pm Reason for Referral Specialty Diagnoses / Procedures Referred By Contac t Referred To Contact Neurosurgery Diagnoses Left lower quadrant abdominal pain Procedures CONSULT TO NEUROSURGERY Trinidad Richardson MD [address] [id number] Juliocesar Borrero MD, PhD [address] [place], [place] [id number] Referral ID Status Reason Start Date Expiration Date Visits Requested Visits Authorized [id number] Ref Not Required PCP Requested Referral 10/07/2023 10/06/2024 1 1 Specialty Diagnoses / Procedures Referred By Contac t Referred To Contact Diagnoses Preoperative examination Infected hernioplasty mesh, sequela Procedures REFER TO PACC - PRE ANESTHESIA CONSULTATION CLINIC OFFICE/OUTPATIENT [facility] 60 MINUTES Suresh Griffiths, CONTINUOUS MINING [employer] MINER.PUBLIC RELATIONS ANALYST [address] [place], [place] [id number] Referral ID Status Reason Start Date Expiration Date Visits Requested Visits Authorized [id number] Authorized PCP Requested Referral 07/21/2023 07/20/2024 1 1 Specialty Diagnoses / Procedures Referred By Contac t Referred To Contact [facility] Diagnoses Preoperative examination Infected hernioplasty mesh, sequela Procedures ECG COMPLETE ECG ROUTINE ECG W/LEAST 12 LDS W/I&R Suresh Girffiths, CONTINUOUS MINING MACHINE COMPANY MINER.PUBLIC RELATIONS ANALYST [address] [place] [id number] [facility] [address] [place], [place] [id number] Referral ID Status Reason Start Date Expiration Date Visits Requested Visits Authorized [id number] Pending Review Auto-Generat ed Referral 07/21/2023 07/20/2024 1 1 Specialty Diagnoses / Procedures Referred By Contac t Referred To Contact Diagnoses Preoperative examination Infected hernioplasty mesh, sequela Procedures [facility]SULT TO [facility]/OUTPATIENT [facility] 60 MINUTES Suresh Griffiths, CONTINUOUS MINING MACHINE COMPANY MINER.PUBLIC RELATIONS ANALYST [address] [address] Referral ID Status Reason Start Date Expiration Date Visits Requested Visits Authorized [id number] Authorized PCP Requested Referral 07/21/2023 07/20/2024 1 1 Specialty Diagnoses / Procedures Referred By Louieac t Referred To Contact [facility] Diagnoses Left lower quadrant abdominal pain Procedures CONSULT TO [facility] FOR PAIN RECOVERY (CHRONIC PAIN) OFFICE/OUTPATIENT [facility] 60 MINUTES Suresh Griffiths, CONTINUOUS MINING MACHINE COMPANY MINER.PUBLIC RELATIONS ANALYST [address] [address] Referral ID Status Reason Start Date Expiration Date Visits Requested Visits Authorized [id number] Pending Review PCP Requested Referral 07/18/2023 07/17/2024 [...] and content) DATE CREATED AUTHOR 12/10/2017 [facility] DATE CREATED AUTHOR AUTHOR'S ORGANIZ ATION 12/10/2021 [facility] DATE CREATED AUTHOR AUTHOR'S ORGANIZ ATION 03/18/2022 [facility] DATE CREATED AUTHOR AUTHOR'S ORGANIZ ATION 04/30/2022 [facility] DATE CREATED AUTHOR AUTHOR'S ORGANIZ ATION 06/12/2022 [facility] DATE CREATED AUTHOR AUTHOR'S ORGANIZ ATION 06/15/2022 [facility] DATE CREATED AUTHOR AUTHOR'S ORGANIZ ATION 02/23/2023 [facility] DATE CREATED AUTHOR AUTHOR'S ORGANIZ ATION 10/16/2023 [facility] ([place]) DATE CREATED AUTHOR AUTHOR'S ORGANIZ ATION 11/07/2023 [facility] DATE CREATED AUTHOR AUTHOR'S ORGANIZ ATION 03/03/2025 [facility] DATE CREATED AUTHOR AUTHOR'S ORGANIZ ATION 03/09/2025 [facility] DATE CREATED AUTHOR AUTHOR'S ORGANIZ ATION 04/28/2025 [facility] [facility] Care Team (unrecognized sect ion and content) Stitch Burnisher Relationship Specialty Start Date End Date Leydi Martin MD [address] [place], [place] [id number] PCP - General Internal Medicine 07/08/17 Stitch Burnisher Relationship Specialty Start Date End Date No, [...] Dr. Chloe Shea DO Emergency Provider Active Stitch Burnisher Relationship Specialty Start Date End Date Lyedi Martin MD [address] [place], [place] [id number] PCP - General Internal Medicine 07/08/17 Jeffery Weber MD [address] [id number] General Surgery 06/13/23 Stitch Burnisher Relationship Specialty Start Date End Date Leydi Martin MD [address] [place], [place] [id number] PCP - General Internal Medicine 07/08/17 Jeffery Weber MD [address] [place] [address] General Surgery 06/13/23 Stitch Burnisher Relationship Specialty Start Date End Date Leydi Martin MD [address] [facility] [place] [address] PCP - General Internal Medicine 07/08/17 Jeffery Weber MD [address] [place] [address] General Surgery 06/13/23 Stitch Burnisher Relationship Specialty Start Date End Date Leydi Martin MD [address] [facility] [place] [place] [address] PCP - General Internal Medicine 07/08/17 Jeffery Weber MD [address] [place] [address], [place] [address] General Surgery 06/13/23 Stitch Burnisher Relationship Specialty Start Date End Date Leydi Martin MD [address] [facility] [place] [address] PCP - General Internal Medicine 07/08/17 Jeffery Weber MD [address] [place] [address] General Surgery 06/13/23 Stitch Burnisher Relationship Specialty Start Date End Date Leydi Martin MD [address] [place] [address] PCP - General Internal Medicine 07/08/17 Jeffery Weber MD [address] [place], [place] [address] General Surgery 06/13/23 Stitch Burnisher Relationship Specialty Start Date End Date Leydi Martin MD [address] [place], [place] [address] PCP - General Internal Medicine 07/08/17 Jeffery Weber MD [address] [place], [place] [id number] General Surgery 06/13/23 Stitch Burnisher Relationship Specialty Start Date End Date Jonathan Gonzalez MD [address] [place] [address] Surgeon General Surgery 06/21/24 Stitch Burnisher Relationship Specialty Start Date End Date Jonathan Gonzalez MD [address] [place], [place] [id number] Surgeon General Surgery 06/21/24 Stitch Burnisher Relationship Specialty Start Date End Date Jonathan Gonzalez MD [address] [place], [place] [address] Surgeon General Surgery 06/21/24 Team Status: Active Member Role Status Dates No Primary Care Physician Primary Care Provider Active Team Status: Inactive Member Role Status Dates No Primary Care Physician Primary Care Provider Active Start: August 24, 2024 End: August 24, 2024 Dr. Cristian Guadalupe DO Emergency Provider Active Start : August 24, 2024 End: August 24, 2024 Team Status: Active Member Role Status Dates Viola Starkey INSTRUMENT PROCESSING TECH, INSTRUMENT PROCESSING TECH-C Primary Care Provider Active Team Status: Inactive Member Role Status Dates Dr. Cristian Guadalupe DO Attending Provider Active Start : August 24, 2024 End: August 24, 2024 Dr. Cristian Guadalupe , Emergency Provider Active Start : August 24, 2024 End: August 24, 2024 Viola Starkey INSTRUMENT PROCESSING TECH, INSTRUMENT PROCESSING TECH-C Primary Care Provider Active Start: August 24, 2024 End: August 24, 2024 Team Status: Inactive Member Role Status Dates Viola Starkey INSTRUMENT PROCESSING TECH, INSTRUMENT PROCESSING TECH-C Primary Care Provider Active Start: September 19, 2024 End: September 19, 2024 Brian Maldonado MD Referring Provider Active Star t: September 19, 2024 End: September 19, 2024 Brian Maldonado MD Emergency Provider Active Star t: September 19, 2024 End: September 19, 2024 Team Status: Inactive Member Role Status Dates Viola Starkey INSTRUMENT PROCESSING TECH, INSTRUMENT PROCESSING TECH-C Primary Care Provider Active Start: September 19, [...] Inactive Member Role Status Dates Viola Starkey INSTRUMENT PROCESSING TECH, INSTRUMENT PROCESSING TECH-C Primary Care Provider Active Start: December 06, 2024 End: December 07, 2024 Dr. Guevara Choi MD Emergency Provider Active Start: December 06, 2024 End: December 07, 2024 Team Status: Inactive Member Role Status Dates Viola Starkey INSTRUMENT PROCESSING TECH, INSTRUMENT PROCESSING TECH-C Primary Care Provider Active Start: December 08, 2024 End: December 09, 2024 Dr. Guero Baker , Emergency Provider Active Start: December 08, 2024 End: December 09, 2024 Team Status: Active Member Role/Relationship Status Dates Viola Starkey INSTRUMENT PROCESSING TECH, INSTRUMENT PROCESSING TECH-C Primary Care Provider Active Team Status: Inactive Member Role/Relationship Status Dates Viola Starkey INSTRUMENT PROCESSING TECH, INSTRUMENT PROCESSING TECH-C Primary Care Provider Active Start: September 19, [...] Inactive Member Role/Relationship Status Dates Viola Starkey INSTRUMENT PROCESSING TECH, INSTRUMENT PROCESSING TECH-C Primary Care Provider Active Start: December 06, 2024 End: December 07, 2024 Dr. Guevara Choi MD Attending Provider Active Start: December 06, 2024 End: December 07, 2024 Dr. Guevara Choi MD Emergency Provider Active Start: December 06, 2024 End: December 07, 2024 Team Status: Inactive Member Role/Relationship Status Dates Viola Starkey INSTRUMENT PROCESSING TECH, INSTRUMENT PROCESSING TECH-C Primary Care Provider Active Start: December 08, 2024 End: December 09, 2024 Dr. Guero Baker DO Attending Provider Active Start: December 08, 2024 End: December 09, 2024 Dr. Guero Baker DO Emergency Provider Active Start: December 08, 2024 End: December 09, 2024 Team Status: Inactive Member Role/Relationship Status Dates Viola Starkey INSTRUMENT PROCESSING TECH, INSTRUMENT PROCESSING TECH-C Primary Care Provider Active Start: December 29, 2024 End: December 29, 2024 Dr. Justin Cordero MD Emergency Provider Active S tart: December 29, 2024 End: December 29, 2024 Team Status: Inactive Member Role/Relationship Status Dates Viola Starkey INSTRUMENT PROCESSING TECH, INSTRUMENT PROCESSING TECH-C Primary Care Provider Active Start: December 06, 2024 End: December 07, 2024 Dr. Guevara Choi MD Attending Provider Active Start: December 06, 2024 End: December 07, 2024 Dr. Guevara Choi MD Emergency Provider Active Start: December 06, 2024 End: December 07, 2024 Team Status: Inactive Member Role/Relationship Status Dates Viola Starkey INSTRUMENT PROCESSING TECH, INSTRUMENT PROCESSING TECH-C Primary Care Provider Active Start: December 08, 2024 End: December 09, 2024 Dr. Guero Baker DO Attending Provider Active Start: December 08, 2024 End: December 09, 2024 Dr. Guero Baker DO Emergency Provider Active Start: December 08, 2024 End: December 09, 2024 Team Status: Inactive Member Role/Relationship Status Dates Viola Starkey INSTRUMENT PROCESSING TECH, INSTRUMENT PROCESSING TECH-C Primary Care Provider Active Start: December 29, 2024 End: December 29, 2024 Dr. Justin Cordero MD Attending Provider Active S tart: December 29, 2024 End: December 29, 2024 Dr. Justin Cordero MD Emergency Provider Active S tart: December 29, 2024 End: December 29, 2024 Team Status: Inactive Member Role/Relationship Status Dates Viola Starkey INSTRUMENT PROCESSING TECH, INSTRUMENT PROCESSING TECH-C Primary Care Provider Active Start: January 25, 2025 End: January 26, 2025 Dr. Guero Baker DO Emergency Provider Active Start: January 25, 2025 End: January 26, 2025 Team Status: Inactive Member Role/Relationship Status Dates Viola Starkey INSTRUMENT PROCESSING TECH, INSTRUMENT PROCESSING TECH-C Primary Care Provider Active Start: January 25, 2025 End: January 26, 2025 Dr. Guero Baker DO Attending Provider Active Start: January 25, 2025 End: January 26, 2025 Dr. Guero Baker , Emergency Provider Active Start: January 25, 2025 End: January 26, 2025 Team Status: Inactive Member Role/Relationship Status Dates Viola Starkey INSTRUMENT PROCESSING TECH, INSTRUMENT PROCESSING TECH-C Primary Care Provider Active Start: February 17, 2025 End: February 18, 2025 Dr. Guero Baker DO Emergency Provider Active Start: February 17, 2025 End: February 18, 2025 Team Status: Inactive Member Role/Relationship Status Dates Viola Starkey INSTRUMENT PROCESSING TECH, INSTRUMENT PROCESSING TECH-C Primary Care Provider Active Start: February 17, 2025 End: February 18, 2025 Dr. Guero Baker DO Attending Provider Active Start: February 17, 2025 End: February 18, 2025 Dr. Guero Baker DO Emergency Provider Active Start: February 17, 2025 End: February 18, 2025 Team Status: Inactive Member Role/Relationship Status Dates Viola Starkey INSTRUMENT PROCESSING TECH, INSTRUMENT PROCESSING TECH-C Primary Care Provider Active Start: February 27, 2025 End: February 27, 2025 Dr. Joseluis Maier DO Emergency Provider Active Start: February 27, 2025 End: February 27, 2025 Team Status: Active Member Role/Relationship Status Dates Viola Starkey INSTRUMENT PROCESSING TECH, INSTRUMENT PROCESSING TECH-C Primary care physician Active Team Status: Inactive Member Role/Relationship Status Dates Viola Starkey INSTRUMENT PROCESSING TECH, INSTRUMENT PROCESSING TECH-C Primary care physician Active Start: December 06, 2024 End: December 07, 2024 Dr. Guevara Choi MD Attending physician Active Start: December 06, 2024 End: December 07, 2024 Dr. Guevara Choi MD Emergency Department Physician Active Start: December 06, 2024 End: December 07, 2024 Team Status: Inactive Member Role/Relationship Status Dates Viola Starkey INSTRUMENT PROCESSING TECH, INSTRUMENT PROCESSING TECH-C Primary care physician Active Start: December 08, 2024 End: December 09, 2024 Dr. Guero Baker DO Attending physician Active Start: December 08, 2024 End: December 09, 2024 Dr. Guero Baker , Emergency Department Physician A ctive Start: December 08, 2024 End: December 09, 2024 Team Status: Inactive Member Role/Relationship Status Dates Viola Starkey INSTRUMENT PROCESSING TECH, INSTRUMENT PROCESSING TECH-C Primary care physician Active Start: December 29, 2024 End: December 29, 2024 Dr. Justin Cordero MD Attending physician Active Start: December 29, 2024 End: December 29, 2024 Dr. Justin Cordero MD Emergency Department Physician Ac tive Start: December 29, 2024 End: December 29, 2024 Team Status: Inactive Member Role/Relationship Status Dates Viola Starkey INSTRUMENT PROCESSING TECH, INSTRUMENT PROCESSING TECH-C Primary care physician Active Start: January 25, 2025 End: January 26, 2025 Dr. Guero Baker DO Attending physician Active Start: January 25, 2025 End: January 26, 2025 Dr. Guero Baker , Emergency Department Physician A ctive Start: January 25, 2025 End: January 26, 2025 Team Status: Inactive Member Role/Relationship Status Dates Viola Starkey INSTRUMENT PROCESSING TECH, INSTRUMENT PROCESSING TECH-C Primary care physician Active Start: February 17, 2025 End: February 18, 2025 Dr. Guero Baker DO Attending physician Active Start: February 17, 2025 End: February 18, 2025 Dr. Guero Baker DO Emergency Departme nt Physician Active Start: February 17, 2025 End: February 18, 2025 Team Status: Inactive Member Role/Relationship Status Dates Viola Starkey INSTRUMENT PROCESSING TECH, INSTRUMENT PROCESSING TECH-C Primary care physician Active Start: February 27, 2025 End: February 27, 2025 Dr. Joseluis Maier DO Attending physician Active Start: February 27, 2025 End: February 27, 2025 Dr. Joseluis Maier , DO Emergency Departm ent Physician Active Start: February 27, 2025 End: February 27, 2025 Team Status: Inactive Member Role/Relationship Status Dates Viola Starkey NP, INSTRUMENT PROCESSING TECH-C Primary care physician Active Start: March 07, 2025 End: March 08, 2025 Dr. Guero Baker , Attending physician Active Start: March 07, 2025 End: March 08, 2025 Dr. Guero Baker , Emergency Departme nt Physician Active Start: March 07, 2025 End: March 08, 2025 Team Status: Inactive Member Role/Relationship Status Dates Viola Starkey INSTRUMENT PROCESSING TECH, INSTRUMENT PROCESSING TECH-C Primary care physician Active Start: December 29, 2024 End: December 29, 2024 Dr. Justin Cordero MD Attending physician Active Start: December 29, 2024 End: December 29, 2024 Dr. Justin Cordero MD Emergency Department Physician Ac tive Start: December 29, 2024 End: December 29, 2024 Team Status: Inactive Member Role/Relationship Status Dates Viola Starkey INSTRUMENT PROCESSING TECH, INSTRUMENT PROCESSING TECH-C Primary care physician Active Start: January 25, 2025 End: January 26, 2025 Dr. Guero Baker DO Attending physician Active Start: January 25, 2025 End: January 26, 2025 Dr. Guero Baker DO Emergency Department Physician A ctive Start: January 25, 2025 End: January 26, 2025 Team Status: Inactive Member Role/Relationship Status Dates Viola Starkey NP, INSTRUMENT PROCESSING TECH-C Primary care physician Active Start: February 17, 2025 End: February 18, 2025 Dr. Guero Baker DO Attending physician Active Start: February 17, 2025 End: February 18, 2025 Dr. Guero Baker , Emergency Departme nt Physician Active Start: February 17, 2025 End: February 18, 2025 Team Status: Inactive Member Role/Relationship Status Dates Viola Starkey NP, INSTRUMENT PROCESSING TECH-C Primary care physician Active Start: February 27, 2025 End: February 27, 2025 Dr. Joseluis Maier , Attending physician Active Start: February 27, 2025 End: February 27, 2025 Dr. Joseluis Maier , Emergency Departm ent Physician Active Start: February 27, 2025 End: February 27, 2025 Team Status: Inactive Member Role/Relationship Status Dates Viola Starkey INSTRUMENT PROCESSING TECH, INSTRUMENT PROCESSING TECH-C Primary care physician Active Start: March 07, 2025 End: March 08, 2025 Dr. Guero Baker DO Attending physician Active Start: March 07, 2025 End: March 08, 2025 Dr. Guero Baker DO Emergency Departme nt Physician Active Start: March 07, 2025 End: March 08, 2025 Team Status: Inactive Member Role/Relationship Status Dates Viola Starkey INSTRUMENT PROCESSING TECH, INSTRUMENT PROCESSING TECH-C Primary care physician Active Start: March 24, 2025 End: March 24, 2025 Dr. Guero Baker DO Attending physician Active Start: March 24, 2025 End: March 24, 2025 Dr. Guero Baker DO Emergency Department Physician A ctive Start: March 24, 2025 End: March 24, 2025 Care Team (unrecognized sect ion and content) Care Team Personnel Name: PHYSICIAN, NONE Position: Physician Member Role: Primary Care Physician Care Team Related Persons Name: AMANDA WELSH Name: WILFREDO, LOLIS Care Team Personnel Name: PHYSICIAN, NONE Position: Physician Member Role: Primary Care Physician Care Team Related Persons Name: AMANDA WELSH Name: GameSkinny, LOLIS Care Team Personnel Name: PHYSICIAN, NONE Position: Physician Member Role: Primary Care Physician Care Team Related Persons Name: AMANDA WELSH Name: GameSkinny, LOLIS Care Team Personnel Name: PHYSICIAN, NONE Position: Physician Member Role: Primary Care Physician Care Team Related Persons Name: AMANDA WELSH Name: WILFREDO, LOLIS Care Team Personnel Name: PHYSICIAN, NONE Position: Physician Member Role: Primary Care Physician Care Team Related Persons Name: AMANDA WELSH Name: GameSkinny, LOLIS Care Team Personnel Name: PHYSICIAN, NONE [...] this informatio n is protected by the [facility] Confidentiality of Alcohol and Drug Abuse Patient Records regulations: The Federal rules restrict any use of the information to criminally investigate or prosecute any alcohol or drug abuse patient.[facility] the event this information is protected by the Federal Confidentiality of Alcohol and Drug Abuse Patient Records regulations: The Federal rules restrict any use of the information to criminally investigate or prosecute any alcohol or drug abuse patient.[facility] the event this information is protected by the Federal Confidentiality of Alcohol and Drug Abuse Patient Records regulations: The Federal rules restrict any use of the information to criminally investigate or prosecute any alcohol or drug abuse patient.[facility] the event this information is protected by the Federal Confidentiality of Alcohol and Drug Abuse Patient Records regulations: The Federal rules restrict any use of the information to criminally investigate or prosecute any alcohol or drug abuse patient.[facility] the event this information is protected by the Federal Confidentiality of Alcohol and Drug Abuse Patient Records regulations: The Federal rules restrict any use of the information to criminally investigate or prosecute any alcohol or drug abuse patient.[facility] the event this information is protected by the Federal Confidentiality of Alcohol and Drug Abuse Patient Records regulations: The Federal rules restrict any use of the information to criminally investigate or prosecute any alcohol or drug abuse patient.[facility] the event this information is protected by the Federal Confidentiality of Alcohol and Drug Abuse Patient Records regulations: The Federal rules restrict any use of the information to criminally investigate or prosecute any alcohol or drug abuse patient.[facility] the event this information is protected by the Federal Confidentiality of Alcohol and Drug Abuse Patient Records regulations: The Federal rules restrict any use of the information to criminally investigate or prosecute any alcohol or drug abuse patient.[facility] Reason for Visit (unrecogniz ed section and content) Reason Comments Consult Reason Comments Head Injury Reason Comments Wrist Pain Pinned between steel pipe and ladder last night c/o pain in right wrist Reason Comments Shoulder Pain Pt c/o right shoulde r pain that started last night after attempting to lift a couch. Reason Comments 4.24 Cure Resection of Mesh 2 hours los 0 Reason Comments New Patient Specialty Diagnoses / Procedures Referred By Contac t Referred To Contact [facility] [place] / NEUROLOGY PAIN Diagnoses Left lower quadrant abdominal pain Procedures CONSULT TO [facility] (CHRONIC PAIN) OFFICE/OUTPATIENT [facility] 60 MINUTES Suresh Griffiths, [employer] MINER.PUBLIC RELATIONS ANALYST [address] [address] [facility] [id number] [place] [address] Referral ID Status Reason Start Date Expiration Date V isits Requested Visits Authorized [id number] Closed PCP Requested Referral 07/21/2023 06/15/2024 1 [...] BE BASED ON THE PRIMARY CLINICAL RECORDS. [employer] provides no warranty or guarantee of the accuracy or completeness of information in this document.
--- NOTE | 2025-05-08 22:52 | EX.ED.DYSGE1 ---
HPI History of Present Illness Chief Complaint: Abd Pain Informant: patient Narrative Narrative: 45-year-old male presenting to the emergency room with abdominal pain. Patient states for the past couple years he has had an abdominal hernia in the midline that has been gradually worsening. He states he has had 3 prior surgeries at another institution. He recently had a visit with a new surgeon with the [facility]. He states that he is waiting on referral to because of the size of the ventral hernia. States he does not have anything for pain and needs something for pain and nobody will prescribe him any. He notes that he is eating and not vomiting. He notes bowel movements. [facility] Medical History Recurrent incisional hernia with incarceration Abdominal pain Seroma after procedure Influenza due to influenza virus, type A, human Contact with or suspected exposure to other viral communicable disease Sprain of left foot Left ankle sprain Strain of left knee Contusion of left knee Seizures Home Medications ?Medication ?Instructions ?Recorded ?Last Taken ?Type oxycodone 5 mg tablet 5 mg PO Q8H PRN pain 5 days #15 05/08/25 Unknown Rx tabs Allergy/AdvReac Type Severity Reaction Status Date / Time adhesive tape Allergy Hives Verified 05/08/25 21:24 cephalexin monohydrate (From Allergy Anaphylaxis Verified 05/08/25 21:24 Keflex) levetiracetam (From Keppra) Allergy Hives Verified 05/08/25 21:24 morphine Allergy Shortness Verified 05/08/25 21:24 of breath naproxen (From Naprosyn) Allergy Hives Verified 05/08/25 21:24 Family History Grandmother Arthritis Mother Arthritis Seizures Father Colon cancer Diabetes Brother Heart disease Surgical History H/O hernia repair History of appendectomy Social History household members: spouse Smoking Status: Current every day smoker tobacco type: cigarettes and e-cigarettes alcohol intake: never ROS ROS ED Constitutional Constitutional ED: Denies chills, fever(s) or weight loss Eyes Eyes: Denies change in vision or diplopia ENT ENT ED: Denies ear pain, rhinorrhea or sore throat Cardiovascular Cardiovascular: Denies chest pain, orthopnea, palpitations or racing heartbeat Respiratory/Chest Respiratory/Chest: Denies cough, dyspnea or orthopnea Gastrointestinal Gastrointestinal: Reports abdominal pain; Denies constipation, diarrhea, nausea or vomiting Genitourinary Genitourinary ED: Denies dysuria, hematuria or urinary frequency Musculoskeletal Musculoskeletal: Denies arthralgias or myalgias Integumentary Denies abscess or rash Neurologic Neurologic: Denies headache(s) or weakness Psychiatric Psychiatric: Denies anxiety, depression, suicidal ideation or suicidal thoughts Endocrine Endocrinology: Denies polydipsia, polyphagia or polyuria Allergic/Immunologic Allergic/Immunologic ED: Denies mouth swelling, tongue swelling or urticaria EXAM Physical Exam Const Vital Signs: 05/08/25 21:21 05/08/25 21:54 Temperature 97.9 F 97.9 F Temperature Source Temporal Pulse Rate 98 98 Respiratory Rate 18 18 Blood Pressure 127/90 H 127/90 H Blood Pressure Mean 102 102 Pulse Ox 97 97 Positive well nourished, well developed and obese General Appearance ED: well developed and NAD Nutritional Appearance: obese HEENT Reports normocephalic, head/scalp atraumatic and moist mucous membranes Eyes PERRL and EOMs intact bilaterally Neck no lymphadenopathy, supple and no JVD Resp normal respiratory effort and clear to auscultation bilaterally Cardio regular rate, regular rhythm and no murmurs GI GI Narrative: There is a ventral hernia with large palpable defect. I do not see any skin discoloration. Do not feel at this time it is strangulated or incarcerated. I Palpation: soft Back/Spine no CVA tenderness and normal ROM Extremity normal to inspection General Extremety ED: Negative for edema General Extremity: Negative for edema Neuro oriented x3 and CN's II-XII intact bilaterally Sensorium / Orientation: alert Motor Exam: strength 5/5 throughout Psych mental status grossly normal Mood & Affect: Negative for depressed or tearful Skin no rashes or lesions noted and no wounds MDM MDM MDM Narrative Medical decision making narrative: Differential diagnosis includes strangulated hernia incarcerated hernia bowel obstruction worsening hernia I reviewed the patient's previous imaging. He has a large defect. I think the patient can be discharged home. I reviewed his [facility]AR[facility] report. I will write for a few pain medications but advised the patient that this is a chronic issue and not an emergent issue. His pain medicine needs to come from an established doctor that he we will see and not from a variety of emergency physicians. History & Record Review Discussion w/independent historian: Patient Additional record(s) reviewed:: Prior outpatient record Discharge Plan Triage Chief Complaint: Abd Pain ED Provider: Carlo Shea Dx/Rx/DC Orders Clinical Impression: Abdominal pain, acute, Ventral hernia Instructions: ED Hernia (Adult) Prescriptions: New oxycodone 5 mg tablet 5 mg PO Q8H PRN (Reason: pain) 5 Days Qty: 15 0RF Primary Care Provider: Viola Starkey NP Referrals: Viola Starkey NP, [employer] [Primary Care Provider, Family Practice] - 1 Week Print Language: Macedonian Disposition Disposition: Home, Self Care Discharge Date/Time: 05/08/25 21:55
== END 2025-05-08 21:55 | disposition home or self-care (01) ==
LOC: ED 21:49
PROVIDERS: Emergency Provider Emergency Medicine; PCP Nurse Practitioner Family; Visit Provider Emergency Medicine
DX: R10.9 Unspecified abdominal pain (principal); F17.210 Nicotine dependence, cigarettes, uncomplicated; K43.9 Ventral hernia without obstruction or gangrene; Z90.49 Acquired absence of other specified parts of digestive tract; F17.290 Nicotine dependence, other tobacco product, uncomplicated
CPT/HCPCS: 99283; A4216

== ENCOUNTER 2025-06-04 21:01 | Emergency (ER) | payer MEDICAID, SELFPAY ==
[2025-06-04 21:02] VITALS: BP 152/103; PULSE 108; RESP 18; TEMP 37.2; O2SAT 99; BMI 43.8
[2025-06-04] MEDS: DiphenhydrAMINE 50 MG/ML Syringe 25 MG IV (21:25)
[2025-06-04 21:27] LABS: Hematocrit 45.3 % (40-54); Hemoglobin 15.4 g/dL (13.0-16.5); Immature Granulocytes Count 0.040 X10^3/uL (0.0-0.0); Mean Corp Hgb Conc 34.0 g/dL (32-36); Mean Corpuscular Volume 91.0 fL (80-94); Mean Platelet Vol. 9.1 fl (6.2-12.0); NRBC Flagged by Analyzer 0 % (0-5); Platelet Count 310 K/mm3 (150-450); RBC Distribution Width CV 12.1 % (11.6-14.6); RBC Distribution Width SD 40.3 fl (35.1-43.9); Red Blood Count 4.98 M/mm3 (4.6-6.2); White Blood Count 11.5 K/mm3 (4.4-11.0)
--- OUTSIDE RECORDS SUMMARY | 2025-06-04 21:41 | XMS RPT_ITS | CCD ---
Author Organization [facility] Care Team Providers Care Medical Technician Name Role Phone JOSH HELTON Unavailable Unavailable [...] Un available Dr. Jeffery Weber Attending Provider [phone] Leydi Martin MD Primary Care Provider Jeffery Weber MD Unavailable LALITO MCCARTY-BERT, VIOLA Devang Primary Care Physician Baljeet JEONG, Leydi Primary Care Provider JALEEL PLATA, TOI Attending Unavailable PHYSICIAN, NONE Primary Care Unavailable STARKEY BUYER ASSISTANT-TANKER DRIVER, VIOLA L Primary Care UnavaREYES Banerjee DO [...] DAVONTE ONEILL MD Attending Unavail able LALITO GIRALDON-TANKER DRIVER, VIOLA Primary Care Unavai lable JALEEL PLATA, [...] Holly PLATA, Dr. Foster Attending Provider Starkey BIODIESEL TECHNOLOGY MANAGER-C, [facility] Primary Care Provider Joel JEONG, Brian Referring Provider Joel JEONG, Brian Emergency Provider Joel JEONG, Brian Attending Provider Jimbo JEONG, Dr. Waterman Emergency Provider Samuel PLATA, Dr. Jack Emergency Provider Lalito BIODIESEL TECHNOLOGY MANAGER-C, [facility] Primary Care Provider Jimbo JEONG, Dr. Waterman Attending Provider Samuel PLATA, Dr. Jack Attending Provider Gil JEONG, Dr. Anderson Emergency Provider Starkey BIODIESEL TECHNOLOGY MANAGER-C, [facility] Primary Care Provider Gil JEONG, Dr. Anderson Attending Provider [phone] Darrion PLATA, Dr. Skaggs Emergency Provider STARKEY BUYER ASSISTANT-TANKER DRIVER, VIOLA L Primary Care Physician VIOLA STARKEY Primary Care Unavailable MACEY ISAACS Attending Unavailable STARKEY BUYER ASSISTANT-TANKER DRIVER, VIOLA L Primary Care Unavai lable DURESKA DOSHANIKA Attending Unavailable STARKEY BUYER ASSISTANT-TANKER DRIVER, VIOLA L Primary Care Unavai lable CHOUJAA DO, RADHA Attending Unavailable VALERIA JEONG, BLANCO Almonte Attending Unavailable VALERIA JEONG, BLANCO Almonte Referring Unavailable STARKEY BUYER ASSISTANT-TANKER DRIVER, VIOLA L Primary Care Unavai lable STARKEY BUYER ASSISTANT-TANKER DRIVER, VIOLA L Primary Care Unavai lable STARKEY BUYER ASSISTANT-TANKER DRIVER, VIOLA L Attending Unavai lable Starkey BIODIESEL TECHNOLOGY MANAGER-C, [facility] Primary Care Physician Jimbo JEONG, Dr. Waterman Attending Physician Dr. Guevara Choi MD Emergency Department Phys ician Dr. Guero Baker DO Attending Physician Samuel PLATA, Dr. aJck Emergency Department Physic anshu Gil JEONG, Dr. Anderson Attending Physician Gil JEONG, Dr. Anderson Emergency Department Physici an Darrion PLATA, Dr. Skaggs Attending Physician Darrion PLATA, Dr. Skaggs Emergency Department Physi nora Lalito BIODIESEL TECHNOLOGY MANAGER-C, Viola Primary Care Physician Samuel PLATA, Dr. Jack Attending Physician Samuel PLATA, Dr. Jack Emergency Department Physic anshu Starkey BIODIESEL TECHNOLOGY MANAGER, Viola Primary Care Unavailable Joseluis Maier Attending Unavailable Guero Baker Attending Unavailable Starkey BIODIESEL TECHNOLOGY MANAGER, Viola Primary Care Unavailable Starkey BIODIESEL TECHNOLOGY MANAGER, Viola Primary Care Unavailable Justin Cordero Attending Unavailable Starkey BIODIESEL TECHNOLOGY MANAGER, Viola Primary Care Unavailable Jean Mejía Attending Unavailabl e Guero Baker Attending Unavailable Starkey BIODIESEL TECHNOLOGY MANAGER, Viola Primary Care Unavailable Starkey BIODIESEL TECHNOLOGY MANAGER, Viola Referring Unavailable Starkey BIODIESEL TECHNOLOGY MANAGER, Viola Primary Care Unavailable Jeramy Plascencia Attending Unavailable Guero Baker Attending Unavailable Starkey BIODIESEL TECHNOLOGY MANAGER, Viola Primary Care Unavailable Starkey BIODIESEL TECHNOLOGY MANAGER, Viola Primary Care Unavailable Cristian Guadalupe Attending Unavailable Starkey BIODIESEL TECHNOLOGY MANAGER, Ivola Primary Care Unavailable Brian Maldonado Attending Unavailable Reodica, Brian Referring Unavailable Starkey BIODIESEL TECHNOLOGY MANAGER, Viola Primary Care Unavailable Guevara Choi Attending Unavailable Starkey BIODIESEL TECHNOLOGY MANAGER, Viola Primary Care Unavailable Guero Baker Attending Unavailable Justin Cordero Attending Unavailable Starkey BIODIESEL TECHNOLOGY MANAGER, Viola Primary Care Unavailable Guero Baker Attending Unavailable Starkey BIODIESEL TECHNOLOGY MANAGER, Viola Primary Care Unavailable Allergies Allergy Classification Reported Allergen(s) Allergy Type Date of Onset Reaction(s) Facility (20 sources) Cephalexin; Translations: [cephalexin] Drug Allergy 11-13-[address] [facility] (20 sources) levETIRAcetam; Translations: [levetiracetam] Drug Allergy 10-24-19 17 [facility] (20 sources) Morphine; Translations: [morphine] Drug Allergy 10-24-19 17 Anaphylaxis, Rash [facility] (20 sources) Naproxen; Translations: [naproxen] Drug Allergy 07-08-[address] [facility] (20 sources) Tape, Paper Propensity to adverse reactions to substance Rash [facility] (14 sources) Cephalexin; Translations: [cephalexin monohydrate] Drug Allergy 09-24-19 19 Anaphylaxis [facility] (2 sources) PAPER TAPE; Translations: [PAPER TAPE] Allergy to substance 09-24-19 [facility] Repository (10 sources) Adhesive Tape-Silicones; Translations: [ADHESIVE TAPE-SILICONES] Drug Allergy 10-24-19 [facility] (15 sources) Adhesive Tape Propensity to adverse reactions to drug 03-08-20 [facility] Comment on above: PAPER TAPE (1 source) levETIRAcetam Drug Allergy [facility] Rep[facility] (1 source) Morphine Drug Allergy [facility] (1 source) Naproxen Drug Allergy [facility] (2 sources) Levetiracetam Allergy to substance 10-24-19 [facility] (2 sources) Wound Dressing Adhesive Drug Intolerance 03-08-20 [facility] (1 source) Adhesive agent Drug Intolerance 03-08-20 22 [facility] (1 source) Adhesive Tape Drug allergy (disorder) 04-24-20 [facility] Repository (1 source) levETIRAcetam Drug Allergy 04-24-20 [facility] (1 source) Morphine Drug Allergy 04-24-20 [facility] (1 source) Naproxen Drug Allergy 04-24-20 [facility] Rep[facility] Medications Current Medications Medication Drug [...] 2016 11:00pm take 1 capsule by mo [facility] three times daily gabapentin (NEURONTIN) 100 MG capsule Take 100 mg by mouth 3 times daily. 0 Active Comment on above: Take 1 capsule by mo [facility] three times daily for 90 days. Take 1 capsule by mo [facility] three times a day for 90 days. [place] (Nk) (5 sources) Start: 03-07-2025 [place] (Nk) Active March 07, 2025 12:00am Start: 09-19-2024 [place] (Nk) A ctive September 19, 2024 12:00am [...] June 01, 2023 Start: 07-18-2022 End: 07-25-2022 Gilbert 325- 5 mg oral tablet Dose = 1 tab(s), Oral, q4h, PRN Pain, scale 4-6, X 7 day(s), # 28 tab(s), 0 Refill(s), Pharmacy: [id number], Acute post-operative pain, 188, cm, 07/18/22 7:07:00 [...] every six hours as needed for pain Gilbert 325- 5 mg oral tablet Dose = 1 tab(s), Oral, q6h, PRN as needed for pain, X 3 day(s), # 12 tab(s), 0 Refill(s), Hematoma, 134 Start Date: 12/21/21 Stop Date: 12/24/21 Status: Ordered Start: 11-30-2021 End: 12-03-2021 take 1 tablet by mouth every six hours as needed for pain Gilbert 325- 5 mg oral tablet Dose = 1 tab(s), Oral, q6h, PRN As needed for severe pain, X 3 day(s), # 12 tab(s), 0 Refill(s), Postoperative abdominal pain, 141.1 Start Date: 11/30/21 Stop Date: 12/03/21 Status: Ordered Start: 10-06-2021 End: 10-09-2021 take 1 tablet by mouth every six hours Gilbert 325- 5 mg oral tablet Dose = [...] 09-08-2024 Episodic Other aftercare (2 sources) Other prison (current) drug therapy; Translations: [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 No other acute findings. Reading Location: [id number] CC: ERIC Starkey; Dr. Jean Mejía DO Radar Systems Engineer: Signed Normal [facility] Basic Metabolic Profile (BMP )on 04-24-2025 BUN/CRE 12.1 RATIO Normal 10-20 [facility] Comment on above: Performed By: #### L 503.6005, L100.0100, L500.2500 ####[facility] [address] [place], [address] Calcium [Mass/Vol] 8.6 mg/dL Normal 7.6-11.[address] [facility] Comment on above: Performed By: #### L 503.6005, L100.0100, L500.2500 ####[facility] [address] [place], [address] Chloride [Moles/Vol] 104 mmol/L Normal 98-108 [facility] Comment on above: Performed By: #### L 503.6005, L100.0100, L500.2500 ####[facility] [address] [place], [address] CO2 [Moles/Vol] 22.3 mmol/L Normal 21.0-32.0 [facility] Comment on above: Performed By: #### L 503.6005, L100.0100, L500.2500 ####[facility] [address] [place], [address] Creatinine [Mass/Vol] 0.70 mg/dL Normal 0.70-1.20 [facility] Comment on above: Performed By: #### L 503.6005, L100.0100, L500.2500 ####[facility] [address] [place], [address] ECRCL 206.70 ml/min Normal 50-250 [facility] Comment on above: Performed By: #### L 503.6005, L100.0100, L500.2500 ####[facility] [address] [place], [address] GAP 10 Normal 5-15 [facility] Comment on above: Performed By: #### L 503.6005, L100.0100, L500.2500 ####[facility] [address] [place], [address] GFR/1.73 sq M.predicted among non-blacks MDRD (S/P/Bld) [Vol rate/Area] 115 mL/min/{1.73_m2} Normal >60 [facility] Comment on above: Result Comment: mL/m in/1.73m2 CKD-EPI Creatinine Equation (2020) Performed By: #### L 503.6005, L100.0100, L500.2500 ####[facility] [address] [place], [address] Glucose [Mass/Vol] 114 mg/dL High 70-[address] [facility] Comment on above: Performed By: #### L 503.6005, L100.0100, L500.2500 ####[facility] [address] [place], [address] Potassium [Moles/Vol] 4.2 mmol/L Normal 3.3-5.1 [facility] Comment on above: Performed By: #### L 503.6005, L100.0100, L500.2500 ####[facility] [address] [place], [address] Sodium [Moles/Vol] 136 mmol/L Normal 133-[address] [facility] Comment on above: Performed By: #### L 503.6005, L100.0100, L500.2500 ####[facility] [address] [place], [address] Urea nitrogen [Mass/Vol] 8 mg/dL Normal 4-19 [facility] Comment on above: Performed By: #### L 503.6005, L100.0100, L500.2500 ####[facility] [address] [place], [address] CBC W/Diff, Automatedon 11-0 9 Absolute Lymph 3.38 X10 3/uL Normal 0.83-4.51 [facility] Comment on above: Performed By: #### L 503.6005, L100.0100, L500.2500 ####[facility] [address] [place], [address] Absolute Neut 6.2 X10 3/uL Normal 2.0-7.7 [facility] Comment on above: Performed By: #### L 503.6005, L100.0100, L500.2500 ####[facility] [address] [place], [address] Basophils/100 WBC (Bld) 0.9 % Normal 0-1 [facility] Comment on above: Performed By: #### L 503.6005, L100.0100, L500.2500 ####[facility] [address] [place], [address] Eosinophils/100 WBC (Bld) 2.2 % Normal 0-5 [facility] Comment on above: Performed By: #### L 503.6005, L100.0100, L500.2500 ####[facility] [address] [place], [address] Erythrocyte distribution width (RBC) [Ratio] 11.9 % Normal 11.6-14.6 [facility] Comment on above: Performed By: #### L 503.6005, L100.0100, L500.2500 ####[facility] [address] [place], [address] Hematocrit (Bld) [Volume fraction] 44.6 % Normal 40-54 [facility] Comment on above: Performed By: #### L 503.6005, L100.0100, L500.2500 ####[facility] [address] [place], [address] Hemoglobin (Bld) [Mass/Vol] 15.4 g/dL Normal 13.0-16.5 [facility] Comment on above: Performed By: #### L 503.6005, L100.0100, L500.2500 ####[facility] [address] [place], [address] IG% 0.200 Normal 0.0-0.9 [facility] Comment on above: Result Comment: IG% - Immature Granulocytes (promyelocytes, myelocytes and metamyelocytes) > 1% indicates that a LEFT SHIFT is Present. Performed By: #### L 503.6005, L100.0100, L500.2500 ####[facility] [address] [place], [address] Lymphocytes/100 WBC (Bld) 31.8 % Normal 19-41 [facility] Comment on above: Performed By: #### L 503.6005, L100.0100, L500.2500 ####[facility] [address] [place], [address] MCH (RBC) [Entitic mass] 31.2 pg Normal 27.0-32.0 [facility] Comment on above: Performed By: #### L 503.6005, L100.0100, L500.2500 ####[facility] [address] [place], [address] MCHC (RBC) [Mass/Vol] 34.5 g/dL Normal 32-36 [facility] Comment on above: Performed By: #### L 503.6005, L100.0100, L500.2500 ####[facility] [address] [place], [address] MCV (RBC) [Entitic vol] 90.5 fL Normal 80-94 [facility] Comment on above: Performed By: #### L 503.6005, L100.0100, L500.2500 ####[facility] [address] [place], [address] Monocytes/100 WBC (Bld) 6.1 % Normal 0-10 [facility] Comment on above: Performed By: #### L 503.6005, L100.0100, L500.2500 ####[facility] [address] [place], [address] Neutrophils/100 WBC (Bld) 58.8 % Normal 47-70 [facility] Comment on above: Performed By: #### L 503.6005, L100.0100, L500.2500 ####[facility] [address] [place], [address] Nucleated RBC (Bld) [#/Vol] 0 10*3/uL Normal 0-5 [facility] Comment on above: Performed By: #### L 503.6005, L100.0100, L500.2500 ####[facility] [address] [place], [address] Platelet mean volume (Bld) [Entitic vol] 9.5 fL Normal 6.2-12.0 [facility] Comment on above: Performed By: #### L 503.6005, L100.0100, L500.2500 ####[facility] [address] [place], [address] Platelets (Bld) [#/Vol] 304 10*3/uL Normal 150-450 [facility] Comment on above: Performed By: #### L 503.6005, L100.0100, L500.2500 ####[facility] [address] [place], [address] RBC (Bld) [#/Vol] 4.93 10*6/uL Normal 4.6-6.2 [facility] Comment on above: Performed By: #### L 503.6005, L100.0100, L500.2500 ####[facility] [address] [place], [address] RDW SD 39.0 fl Normal 35.1-43.9 [facility] Comment on above: Performed By: #### L 503.6005, L100.0100, L500.2500 ####[facility] [address] [place], [address] WBC (Bld) [#/Vol] 10.6 10*3/uL Normal 4.4-11.0 [facility] Comment on above: Performed By: #### L 503.6005, L100.0100, L500.2500 ####[facility] [address] [place], [address] Emergency Department Summary on 04-24-2025 Emergency Department Summary [facility] Medical Records Department [address] [place] [address] Emergency Department Summary 04/24/25 MR#: [id number] Acct: [id number] Name: PATRICK KOROMA Rep #: [id number] : 1980 45 From: Jean Mejía DO PCP: FREDDY AnayaC Status:REG ER Location: ED HPI History of Present Illness Chief Complaint: Abd Pain Narrative Narrative: Chief complaint and HPI: 45-year-old male with known history of ventral hernia presents for evaluation of pain in his ventral hernia. Patient states that he was supposed to follow-up with a surgeon at [facility] however his insurance was wrong and therefore [...] intact Psych: Cooperative, appropriate mood and affect [facility] Medical History Abdominal pain Seroma after [...] supposed to follow-up with a surgeon at [facility] however his insurance was wrong and therefore [...] Count 304 (more content not included)... Normal [facility] Lactic Acidon 04-24-2025 Lactate [Moles/Vol] 1.7 mmol/L Normal 0.0-2.0 [facility] Comment on above: Order Comment: Y Performed By: #### L 503.6005, L100.0100, L500.2500 ####[facility] [address] [facility] [place], [address] Emergency Department Summary on 04-17-2025 Emergency Department Summary [facility] Medical Records Department [address] [place] [address] Emergency Department Summary 04/17/25 MR#: [id number] Acct: [id number] Name: PATRICK KOROMA Rep #: [id number] : 1980 45 From: Justin Cordero MD PCP: ERIC Anaya Status:DEP ER Location: ED HPI History of Present Illness HPI Narrative: 45-year-old male zibck-fpsq-xacgluht. Denies new past medical history. 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 Denies any fall injury or trauma. [...] Loss of Funtion Narrative Narrative: 45-year-old male gjcma-dbyi-lkjifkhx atraumatic right upper arm pain. No fall injury or trauma. No fever. No redness. No history of DVT in the past. Prior similar symptoms: No Recent Ill[facility]ati [facility] Medical History Abdominal pain Seroma after procedure [...] extremities. Neurovascularly intact. Specifically right hand normal gem cutter strength 5 out of 5 normal touch [...] Rate 18 (more content not included)... Normal [facility] Humerus min 2 Viewson 2024 Humerus min 2 Views [facility] Imaging Services [address] [place], [place] [address] Humerus min 2 Views MR#: [id number] Acct: [id number] Name: PATRICK KOROMA Rep #: [id number] : 1980 M 45 From: Jf Sanford MD PCP: ERIC Anaya Status: DEP ER Study: Humerus min 2 Views Date of Exam: 04/17/25 Exam# [id number] Ordering Dr: Justin Cordero MD PROCEDURE: HUMERUS MIN 2 VIEWS 04/17/2025 REASON FOR EXAM: ATRAUMATIC PAIN TECHNIQUE: Procedure Code: RADHUM Modality: DX Procedure: HUMERUS MIN 2 VIEWS Laterality: Right FINDINGS: No acute fracture or dislocation. No significant bone or joint abnormality. No focal soft tissue swelling. RAD/Humerus min 2 Views IMPRESSION: As above. Reading Location: [id number] CC: BIODIESEL TECHNOLOGY MANAGER-C Viola Starkey; Dr. Justin Cordero MD Radar Systems Engineer: Signed Normal [facility] Emergency Department Summary on 03-24-2025 Emergency Department Summary [facility] Medical Records Department [address] [place] [address] Emergency Department Summary 03/24/25 MR#: [id number] Acct: [id number] Name: PATRICK KOROMA Rep #: [id number] : 1980 45 From: Guero Baker DO [...] nausea or vomiting. He reports he took jimz-son-zmaijmh medication without any symptom improvement. Therefore with the worsening pain he presents for evaluation [facility] Medical History (Updated 03/25/25 @ 23:18 [...] ventral he (more content not included)... Normal [facility] Basic Metabolic Profile (BMP )on 03-08-2025 BUN/CRE 15.2 RATIO Normal 10-20 [facility] Comment on above: Performed By: #### L 500.2500, L503.6005, L501.5200, L100.0100 #### [facility] [address] [place], [address] Calcium [Mass/Vol] 9.0 mg/dL Normal 7.6-11.[address] [facility] Comment on above: Performed By: #### L 500.2500, L503.6005, L501.5200, L100.0100 #### [facility] [address] [place], [address] Chloride [Moles/Vol] 102 mmol/L Normal 98-108 [facility] Comment on above: Performed By: #### L 500.2500, L503.6005, L501.5200, L100.0100 #### [facility] [address] [facility] [address] CO2 [Moles/Vol] 22.2 mmol/L Normal 21.0-32.0 [facility] Comment on above: Performed By: #### L 500.2500, L503.6005, L501.5200, L100.0100 #### [facility] [address] [place], [address] Creatinine [Mass/Vol] 0.73 mg/dL Normal 0.70-1.20 [facility] Comment on above: Performed By: #### L 500.2500, L503.6005, L501.5200, L100.0100 #### [facility] [address] [place], [address] ECRCL 199.80 ml/min Normal 50-250 [facility] Comment on above: Performed By: #### L 500.2500, L503.6005, L501.5200, L100.0100 #### [facility] [address] [place], [address] GAP 12 Normal 5-15 [facility] Comment on above: Performed By: #### L 500.2500, L503.6005, L501.5200, L100.0100 #### [facility] [address] [place], [address] GFR/1.73 sq M.predicted among non-blacks MDRD (S/P/Bld) [Vol rate/Area] 114 mL/min/{1.73_m2} Normal >60 [facility] Comment on above: Result Comment: mL/m in/1.73m2 CKD-EPI Creatinine Equation (2020) Performed By: #### L 500.2500, L503.6005, L501.5200, L100.0100 #### [facility] [address] [place], [address] Glucose [Mass/Vol] 115 mg/dL High 70-[address] [facility] Comment on above: Performed By: #### L 500.2500, L503.6005, L501.5200, L100.0100 #### [facility] [address] [place], [address] Potassium [Moles/Vol] 4.1 mmol/L Normal 3.3-5.1 [facility] Comment on above: Result Comment: Hemo lysis present, Results??could be affected. ?? Performed By: #### L 500.2500, L503.6005, L501.5200, L100.0100 #### [facility] [address] [place], [address] Sodium [Moles/Vol] 136 mmol/L Normal 133-[address] [facility] Comment on above: Performed By: #### L 500.2500, L503.6005, L501.5200, L100.0100 #### [facility] [address] [place], [address] Urea nitrogen [Mass/Vol] 11 mg/dL Normal 4-19 [facility] Comment on above: Performed By: #### L 500.2500, L503.6005, L501.5200, L100.0100 #### [facility] [address] [place], [address] CBC W/Diff, Automatedon 09-2 3-2024 Absolute Lymph 3.35 X10 3/uL Normal 0.83-4.51 [facility] Comment on above: Performed By: #### L 500.2500, L503.6005, L501.5200, L100.0100 #### [facility] [address] [place], [address] Absolute Neut 5.2 X10 3/uL Normal 2.0-7.7 [facility] Comment on above: Performed By: #### L 500.2500, L503.6005, L501.5200, L100.0100 #### [facility] [address] [place], [address] Basophils/100 WBC (Bld) 1.1 % High 0-1 [facility] Comment on above: Performed By: #### L 500.2500, L503.6005, L501.5200, L100.0100 #### [facility] [address] [place], [address] Eosinophils/100 WBC (Bld) 3.6 % Normal 0-5 [facility] Comment on above: Performed By: #### L 500.2500, L503.6005, L501.5200, L100.0100 #### [facility] [address] [place], [address] Erythrocyte distribution width (RBC) [Ratio] 13.0 % Normal 11.6-14.6 [facility] Comment on above: Performed By: #### L 500.2500, L503.6005, L501.5200, L100.0100 #### [facility] [address] [place], [address] Hematocrit (Bld) [Volume fraction] 43.3 % Normal 40-54 [facility] Comment on above: Performed By: #### L 500.2500, L503.6005, L501.5200, L100.0100 #### [facility] [address] [place], [address] Hemoglobin (Bld) [Mass/Vol] 14.9 g/dL Normal 13.0-16.5 [facility] Comment on above: Performed By: #### L 500.2500, L503.6005, L501.5200, L100.0100 #### [facility] [address] [place], [address] IG% 0.800 Normal 0.0-0.9 [facility] Comment on above: Result Comment: IG% - Immature Granulocytes (promyelocytes, myelocytes and metamyelocytes) > 1% indicates that a LEFT SHIFT is Present. Performed By: #### L 500.2500, L503.6005, L501.5200, L100.0100 #### [facility] [address] [place], [address] Lymphocytes/100 WBC (Bld) 34.8 % Normal 19-41 [facility] Comment on above: Performed By: #### L 500.2500, L503.6005, L501.5200, L100.0100 #### [facility] [address] [place], [address] MCH (RBC) [Entitic mass] 31.4 pg Normal 27.0-32.0 [facility] Comment on above: Performed By: #### L 500.2500, L503.6005, L501.5200, L100.0100 #### [facility] [address] [place], [address] MCHC (RBC) [Mass/Vol] 34.4 g/dL Normal 32-36 [facility] Comment on above: Performed By: #### L 500.2500, L503.6005, L501.5200, L100.0100 #### [facility] [address] [place], [address] MCV (RBC) [Entitic vol] 91.2 fL Normal 80-94 [facility] Comment on above: Performed By: #### L 500.2500, L503.6005, L501.5200, L100.0100 #### [facility] [address] [place], [address] Monocytes/100 WBC (Bld) 6.0 % Normal 0-10 [facility] Comment on above: Performed By: #### L 500.2500, L503.6005, L501.5200, L100.0100 #### [facility] [address] [place], [address] Neutrophils/100 WBC (Bld) 53.7 % Normal 47-70 [facility] Comment on above: Performed By: #### L 500.2500, L503.6005, L501.5200, L100.0100 #### [facility] [address] [place], [address] Nucleated RBC (Bld) [#/Vol] 0 10*3/uL Normal 0-5 [facility] Comment on above: Performed By: #### L 500.2500, L503.6005, L501.5200, L100.0100 #### [facility] [address] [place], [address] Platelet mean volume (Bld) [Entitic vol] 9.9 fL Normal 6.2-12.0 [facility] Comment on above: Performed By: #### L 500.2500, L503.6005, L501.5200, L100.0100 #### [facility] [address] [place], [address] Platelets (Bld) [#/Vol] 312 10*3/uL Normal 150-450 [facility] Comment on above: Performed By: #### L 500.2500, L503.6005, L501.5200, L100.0100 #### [facility] [address] [place], [address] RBC (Bld) [#/Vol] 4.75 10*6/uL Normal 4.6-6.2 [facility] Comment on above: Performed By: #### L 500.2500, L503.6005, L501.5200, L100.0100 #### [facility] [address] [place], [address] RDW SD 43.3 fl Normal 35.1-43.9 [facility] Comment on above: Performed By: #### L 500.2500, L503.6005, L501.5200, L100.0100 #### [facility] [address] [place], [address] WBC (Bld) [#/Vol] 9.6 10*3/uL Normal 4.4-11.[address] [facility] Comment on above: Performed By: #### L 500.2500, L503.6005, L501.5200, L100.0100 #### [facility] [address] [place], [address] Emergency Department Summary on 03-08-2025 Emergency Department Summary [facility] Medical Records Department [address] [place] [address] Emergency Department Summary 03/08/25 MR#: [id number] Acct: [id number] Name: PATRICK KOROMA Rep #: [id number] : 1980 45 From: Guero Bkaer DO PCP: ERIC Anaya Status:DEP ER Location: [...] for multiple years he presents for evaluation [facility] Medical History (Updated 03/08/25 @ 01:30 [...] jaundice or (more content not included)... Normal [facility] Lactic Acidon 03-08-2025 Lactate [Moles/Vol] 1.6 mmol/L Normal 0.0-2.0 [facility] Comment on above: Order Comment: Y Performed By: #### L 500.2500, L503.6005, L501.5200, L100.0100 #### [facility] [address] [place], [address] Magnesiumon 03-08-2025 Magnesium [Mass/Vol] 2.1 mg/dL Normal 1.5-2.2 [facility] Comment on above: Performed By: #### L 500.2500, L503.6005, L501.5200, L100.0100 #### [facility] [address] [place], [address] Absolute lymphocyte countOrd ered By: Guero Baker on 03-07-2025 Lymphocytes Auto (Unsp spec) [#/Vol] 3.35 10*3/uL 0.83-4.51 [facility] Absolute neutrophil countOrd ered By: Guero Baker on 03-07-2025 Neutrophils (Bld) [#/Vol] 5.2 10*3/uL 2.0-7.7 [facility] Anion gap in Serum or Plasma Ordered By: Guero Baker on 03-07-2025 Anion gap [Moles/Vol] 12 mmol/L 5- [facility] Automated lymphocyte count a s percentage of total leukocytesOrdered By: Guero Baker on 03-07-2025 Lymphocytes/100 WBC Auto (Unsp spec) 34.8 % - [facility] BUN/creatinine ratioOrdered By: Guero Baker on 03-07-2025 Urea nitrogen/Creatinine [Mass ratio] 15.2 mg/mg 10- [facility] Basophil percentageOrdered B y: Guero Baker on 03-07-2025 Basophils/100 WBC (Bld) 1.1 % High 0-1 [facility] Brain/Head without Contrasto n 03-07-2025 Brain/Head without Contrast [facility] Imaging Services [address] [place], [place] [address] Brain/Head without Contrast MR#: [id number] Acct: [id number] Name: PATRICK KOROMA Rep #: [id number] : 1980 M 45 From: Mike Box MD PCP: ERIC Anaya Status: REG ER Study: Brain/Head without Contrast Date of Exam: 02/15 08/10 Exam# [id number] Ordering Dr: Guero Baker DO PROCEDURE: CT [...] Contrast IMPRESSION: Unremarkable head CT. Reading Location: [facility] CC: ERIC Starkey; Guero Baker DO Radar Systems Engineer: Signed Normal [facility] Carbon dioxide, total [Moles /volume] in Central venous bloodOrdered By: Guero Baker on 03-07-2025 CO2 [Moles/Vol] 22.2 mmol/L 21.0-32.0 [facility] Chest 1 View (Portable)on Chest 1 View (Portable) [facility] Imaging Services [address] [place] [address] Chest 1 View (Portable) MR#: [id number] Acct: [id number] Name: PATRICK KOROMA Rep #: [id number] : 1980 M 45 From: Mike Box MD PCP: ERIC Anaya Status: REG ER Study: Chest 1 View (Portable) Date of Exam: 03/07/25 Exam# [id number] Ordering Dr: Guero Baker DO PROCEDURE: CHEST 1 VIEW (PORTABLE) 03/07/2025 REASON FOR EXAM: SEIZURE TECHNIQUE: Frontal view of the chest. COMPARISON: None. FINDINGS: Lungs/Pleura: Clear. No pneumothorax or sizable pleural effusion. Heart/Mediastinum: Within normal limits. Bones/Soft tissues: No significant abnormality. RAD/Chest 1 View (Portable) IMPRESSION: No acute cardiopulmonary disease. Reading Location: [facility] CC: YULI-C Viola Starkey; Guero Baker DO Radar Systems Engineer: Signed Normal [facility] Chloride assayOrdered By: Maru Baker on 03-07-2025 Chloride [Moles/Vol] 102 mmol/L 98-108 [facility] Eosinophil percentageOrdered By: Guero Baker on 03-07-2025 Eosinophils/100 WBC (Bld) 3.6 % 0-5 [facility] Erythrocyte distribution wid th ratioOrdered By: Guero Baker on 03-07-2025 Erythrocyte distribution width (RBC) [Ratio] 13.0 % 11.6-14.6 [facility] Erythrocyte distribution wid th standard deviationOrdered By: Guero Baker on 03-07-2025 Erythrocyte distribution width (RBC) [Ratio] 43.3 fl 35.1-43.9 [facility] Glomerular filtration rate ( GFR) estimation/1.73 sq m using serum, plasma, or whole bOrdered By: Guero Baker on 03-07-2025 GFR/1.73 sq M.predicted among non-blacks MDRD (S/P/Bld) [Vol rate/Area] 114 mL/min/{1.73_m2} >60 [facility] Comment on above: mL/min/1.73m2 CKD-EP I Creatinine Equation (2020) Hematocrit Auto (Bld) [Volum e fraction]Ordered By: Guero Baker on 03-07-2025 Hematocrit (Bld) [Volume fraction] 43.3 % 40-54 [facility] Hemoglobin measurementOrdere d By: Guero Baker on 03-07-2025 Hemoglobin (Bld) [Mass/Vol] 14.9 g/dL 13.0-16.5 [facility] Immature granulocytes/100 WB C Auto (Bld)Ordered By: Guero Baker on 03-07-2025 Immature granulocytes/100 WBC (Bld) 0.800 % 0.0-0.9 [facility] Comment on above: IG% - Immature Granu locytes (promyelocytes, myelocytes and metamyelocytes) > 1% indicates that a LEFT SHIFT is Present. Lactic acid measurementOrder ed By: Guero Baker on 03-07-2025 Lactate [Moles/Vol] 1.6 mmol/L 0.0-2.0 [facility] MCV (mean corpuscular volume ) determinationOrdered By: Guero Baker on 03-07-2025 MCV (RBC) [Entitic vol] 91.2 fL 80-94 [facility] Magnesium measurement (mass/ volume)Ordered By: Guero Baker on 03-07-2025 Magnesium (Unsp spec) [Mass/Vol] 2.1 mg/dL 1.5-2.2 [facility] Mean corpuscular hemoglobin (MCH) determinationOrdered By: Guero Bkaer on 03-07-2025 MCH (RBC) [Entitic mass] 31.4 pg 27.0-32.0 [facility] Mean corpuscular hemoglobin concentration (MCHC) determinationOrdered By: Guero Baker on 03-07-2025 MCHC (RBC) [Mass/Vol] 34.4 g/dL 32-36 [facility] Mean platelet volume determi nationOrdered By: Guero Baker on 03-07-2025 Platelet mean volume (Bld) [Entitic vol] 9.9 fL 6.2-12.0 [facility] Monocyte percentageOrdered B y: Guero Baker on 03-07-2025 Monocytes/100 WBC (Bld) 6.0 % 0-10 [facility] Neutrophil percentageOrdered By: Guero Baker on 03-07-2025 Neutrophils/100 WBC (Bld) 53.7 % 47-70 [facility] Nucleated red blood cell per centageOrdered By: Guero Baker on 03-07-2025 Nucleated RBC/100 WBC (Bld) [Ratio] 0 % 0-5 [facility] Platelet countOrdered By: Maru Baker on 03-07-2025 Platelets (Bld) [#/Vol] 312 10*3/uL 150-450 [facility] Potassium measurement (mass/ volume)Ordered By: Guero Baker on 03-07-2025 Potassium (Unsp spec) [Mass/Vol] 4.1 mmol/L 3.3-5.1 [facility] Comment on above: Hemolysis present, R esults could be affected. RBC Auto (Bld) [#/Vol]Ordere d By: Guero Baker on 03-07-2025 RBC (Bld) [#/Vol] 4.75 10*6/uL 4.6-6.2 [facility] Serum creatinine measurement (mass/volume)Ordered By: Guero Baker on 03-07-2025 Creatinine [Mass/Vol] 0.73 mg/dL 0.70-1.20 [facility] Serum glucose measurement (m ass/volume)Ordered By: Guero Baker on 03-07-2025 Glucose [Mass/Vol] 115 mg/dL High 70-[address] [facility] Serum or plasma calcium za urement (mass/volume)Ordered By: Guero Baker on 03-07-2025 Calcium [Mass/Vol] 9.0 mg/dL 7.6-11.[address] [facility] Serum or plasma urea nitroge n measurement (mass/volume)Ordered By: Guero Baker on 03-07-2025 Urea nitrogen [Mass/Vol] 11 mg/dL 4-19 [facility] Sodium levelOrdered By: Scott Baker on 03-07-2025 Sodium [Moles/Vol] 136 mmol/L 133-[address] [facility] White blood cell (WBC) count Ordered By: Guero Baker on 03-07-2025 WBC (Bld) [#/Vol] 9.6 10*3/uL 4.4-11.0 [facility] HEALTH 03-02-2025 ALLIED HEALTH HNO ID: [id number] Author: BRANDO ANN TECHNOLOGIST Service: Radiology Author [...] PATIENT PRESENTS WITH AN IMPLANTABLE OR ATTACHED PHYSICIAN'S ASSISTANT: No ALLERGIES: Reviewed and unchanged CONTRAST ALLERGY: [...] March 02, 2025 TIME: 2:36 PM Normal [facility] CBC W Auto Differential pane l (Bld)on 03-02-2025 Basophils (Bld) [#/Vol] 0.08 10*3/uL Normal <0.11 [facility] Comment on above: Order Comment: Speci men Type: BLOOD SPECIMEN Ordering Facility: [facility] Address: [address] [place] [address] Performed By: #### 5 7021-8 #### [facility] CLIA [id number] [address] [place] [address] [place] Basophils/100 WBC (Bld) 0.9 % Normal [facility] Comment on above: Order Comment: Speci men Type: BLOOD SPECIMEN Ordering Facility: [facility] Address: [address] [place] [address] Performed By: #### 5 7021-8 #### [facility] CLIA [id number] [address] [place] [address] [place] Differential cell count method Nom (Bld) Auto Normal [facility] Comment on above: Order Comment: Speci men Type: BLOOD SPECIMEN Ordering Facility: [facility] Address: [address] [place] [address] Performed By: #### 5 7021-8 #### [facility] CLIA [id number] [address] [place] [address] [place] Eosinophils (Bld) [#/Vol] 0.19 10*3/uL Normal <0.46 [facility] Comment on above: Order Comment: Speci men Type: BLOOD SPECIMEN Ordering Facility: [facility] Address: [address] [place] [address] Performed By: #### 5 7021-8 #### [facility] CLIA [id number] [address] [place] [address] [place] Eosinophils/100 WBC (Bld) 2.1 % Normal [facility] Comment on above: Order Comment: Speci men Type: BLOOD SPECIMEN Ordering Facility: [facility] Address: [address] [place] [address] Performed By: #### 5 7021-8 #### [facility] CLIA [id number] [address] [place] Erythrocyte distribution width (RBC) [Ratio] 13.0 % Normal 11.5-15.0 [facility] Comment on above: Order Comment: Speci men Type: BLOOD SPECIMEN Ordering Facility: [facility] Address: [address] [place] [address] Performed By: #### 5 7021-8 #### [facility] CLIA [id number] [address] [place] Hematocrit (Bld) [Volume fraction] 42.1 % Normal 39.0-51.0 [facility] Comment on above: Order Comment: Speci men Type: BLOOD SPECIMEN Ordering Facility: [facility] Address: [address] [place] [address] Performed By: #### 5 7021-8 #### [facility] CLIA [id number] [address] [place] [address] [place] Hemoglobin (Bld) [Mass/Vol] 14.3 g/dL Normal 13.0-17.0 [facility] Comment on above: Order Comment: Speci men Type: BLOOD SPECIMEN Ordering Facility: [facility] Address: [address] [place] [address] Performed By: #### 5 7021-8 #### [facility] CLIA [id number] [address] [place] Immature granulocytes (Bld) [#/Vol] 10*3/uL Normal <0.10 [facility] Comment on above: Order Comment: Speci men Type: BLOOD SPECIMEN Ordering Facility: [facility] Address: [address] [place] [address] Performed By: #### 5 7021-8 #### [facility] CLIA [id number] [address] Immature granulocytes/100 WBC (Bld) 0.2 % Normal [facility] Comment on above: Order Comment: Speci men Type: BLOOD SPECIMEN Ordering Facility: [facility] Address: [address] [place] [address] Performed By: #### 5 7021-8 #### [facility] CLIA [id number] [address] Lymphocytes (Bld) [#/Vol] 1.90 10*3/uL Normal 1.00-4.00 [facility] Comment on above: Order Comment: Speci men Type: BLOOD SPECIMEN Ordering Facility: [facility] Address: [address] [place] [address] Performed By: #### 5 7021-8 #### [facility] CLIA [id number] [address] Lymphocytes/100 WBC (Bld) 21.0 % Normal [facility] Comment on above: Order Comment: Speci men Type: BLOOD SPECIMEN Ordering Facility: [facility] Address: [address] [place] [address] Performed By: #### 5 7021-8 #### [facility] CLIA [id number] [address] MCH (RBC) [Entitic mass] 31.5 pg Normal 26.0-34.0 [facility] Comment on above: Order Comment: Speci men Type: BLOOD SPECIMEN Ordering Facility: [facility] Address: [address] [place] [address] Performed By: #### 5 7021-8 #### [facility] CLIA [id number] [address] MCHC (RBC) [Mass/Vol] 34.0 g/dL Normal 30.5-36.[address] [facility] Comment on above: Order Comment: Speci men Type: BLOOD SPECIMEN Ordering Facility: [facility] Address: [address] [place] [address] Performed By: #### 5 7021-8 #### [facility] CLIA [id number] [address] MCV (RBC) [Entitic vol] 92.7 fL Normal 80.0-100.[address] [facility] Comment on above: Order Comment: Speci men Type: BLOOD SPECIMEN Ordering Facility: [facility] Address: [address] [place] [address] Performed By: #### 5 7021-8 #### [facility] CLIA [id number] [address] [place] [address] [place] Monocytes (Bld) [#/Vol] 0.61 10*3/uL Normal <0.87 [facility] Comment on above: Order Comment: Speci men Type: BLOOD SPECIMEN Ordering Facility: [facility] Address: [address] [place] [address] Performed By: #### 5 7021-8 #### [facility] CLIA [id number] [address] [place] Monocytes/100 WBC (Bld) 6.7 % Normal [facility] Comment on above: Order Comment: Speci men Type: BLOOD SPECIMEN Ordering Facility: [facility] Address: [address] [place] [address] Performed By: #### 5 7021-8 #### [facility] CLIA [id number] [address] [place] [address] [place] Neutrophils (Bld) [#/Vol] 6.24 10*3/uL Normal 1.45-7.50 [facility] Comment on above: Order Comment: Speci men Type: BLOOD SPECIMEN Ordering Facility: [facility] Address: [address] [place] [address] Performed By: #### 5 7021-8 #### [facility] CLIA [id number] [address] [place] Neutrophils/100 WBC (Bld) 69.1 % Normal [facility] Comment on above: Order Comment: Speci men Type: BLOOD SPECIMEN Ordering Facility: [facility] Address: [address] [place] [address] Performed By: #### 5 7021-8 #### [facility] CLIA [id number] [address] [place] [address] [place] Nucleated RBC (Bld) [#/Vol] 10*3/uL Normal <0.01 [facility] Comment on above: Order Comment: Speci men Type: BLOOD SPECIMEN Ordering Facility: [facility] Address: [address] [place] [address] Performed By: #### 5 7021-8 #### [facility] CLIA [id number] [address] [place] [address] [place] Nucleated RBC/100 WBC (Bld) [Ratio] 0.0 /100 WBC Normal [facility] Comment on above: Order Comment: Speci men Type: BLOOD SPECIMEN Ordering Facility: [facility] Address: [address] [place] [address] Performed By: #### 5 7021-8 #### [facility] CLIA [id number] [address] [place] [address] [place] Platelet mean volume (Bld) [Entitic vol] 9.7 fL Normal 9.0-12.7 [facility] Comment on above: Order Comment: Speci men Type: BLOOD SPECIMEN Ordering Facility: [facility] Address: [address] [place] [address] Performed By: #### 5 7021-8 #### [facility] CLIA [id number] [address] [place] [address] [place] Platelets (Bld) [#/Vol] 287 10*3/uL Normal 150-400 [facility] Comment on above: Order Comment: Speci men Type: BLOOD SPECIMEN Ordering Facility: [facility] Address: [address] [place] [address] Performed By: #### 5 7021-8 #### [facility] CLIA [id number] [address] [place] [address] [place] RBC (Bld) [#/Vol] 4.54 10*6/uL Normal 4.20-6.00 [facility] Comment on above: Order Comment: Speci men Type: BLOOD SPECIMEN Ordering Facility: [facility] Address: [address] [place] [address] Performed By: #### 5 7021-8 #### [facility] CLIA [id number] [address] [place] WBC (Bld) [#/Vol] 9.04 10*3/uL Normal 3.70-11.00 [facility] Comment on above: Order Comment: Speci men Type: BLOOD SPECIMEN Ordering Facility: [facility] Address: [facility] [place] [id number] Performed By: #### 5 7021-8 #### [facility] CLIA [id number] [address] [place] [address] [place] [address] ABD/PEL W IVCONon 025 CT ABD/PEL W IVCON * * *Final Report* * * DATE OF EXAM: Mar 02 2025 2:45PM [facility] 0530 - CT ABD/PEL W IVCON / [...] IMPRESSION: No acute abnormality or bowel obstruction. Radar Systems Engineer: PSCB Transcribe Date/Time: Mar 02 2025 3:29P Dictated by : ELIDA MORTON MD This examination was interpreted and the report reviewed and electronically signed by: ELIDA MORTON MD on Mar 02 2025 3:31PM EST [id number] N Normal [facility] CT ABDOMEN/PELVIS W/O CONTRA STon 03-02-2025 CT [...] 03/02/2025 12:00:47 AM Ordering Provider: BLANCO Nelson [facility] Comprehensive metabolic 2000 panelon 03-02-2025 Albumin [Mass/Vol] 4.0 g/dL Normal 3.9-4.9 [facility] Comment on above: Order Comment: Speci men Type: BLOOD SPECIMEN Ordering Facility: [facility] Address: [address] [place] [address] Performed By: #### 3 040-3, 79158-6 #### [facility] CLIA [id number] [address] [place] [address] [facility] [Catalytic activity/Vol] 35 U/L Low 38-113 [facility] Comment on above: Order Comment: Speci men Type: BLOOD SPECIMEN Ordering Facility: [facility] Address: [address] [place] [address] Performed By: #### 3 040-3, 02874-1 #### [facility] CLIA [id number] [address] [place] ALT [Catalytic activity/Vol] 16 U/L Normal 10-54 [facility] Comment on above: Order Comment: Speci men Type: BLOOD SPECIMEN Ordering Facility: [facility] Address: [address] [place] [address] Performed By: #### 3 040-3, 69641-3 #### [facility] CLIA [id number] [address] [place] [address] [place] Anion gap [Moles/Vol] 7 mmol/L Low 8-[address] [facility] Comment on above: Order Comment: Speci men Type: BLOOD SPECIMEN Ordering Facility: [facility] Address: [address] [place] [address] Performed By: #### 3 040-3, 84948-8 #### [facility] CLIA [id number] [address] [place] AST [Catalytic activity/Vol] 17 U/L Normal 14-40 [facility] Comment on above: Order Comment: Speci men Type: BLOOD SPECIMEN Ordering Facility: [facility] Address: [address] [place] [address] Performed By: #### 3 040-3, 78435-9 #### [facility] CLIA [id number] [address] [place] [address] [place] Bilirubin [Mass/Vol] 0.4 mg/dL Normal 0.2-1.3 [facility] Comment on above: Order Comment: Speci men Type: BLOOD SPECIMEN Ordering Facility: [facility] Address: [address] [place] [address] Performed By: #### 3 040-3, 60452-9 #### [facility] CLIA [id number] [address] [place] [address] [place] Calcium [Mass/Vol] 8.9 mg/dL Normal 8.5-10.2 [facility] Comment on above: Order Comment: Speci men Type: BLOOD SPECIMEN Ordering Facility: [facility] Address: [address] [place] [address] Performed By: #### 3 040-3, #### [facility] CLIA [id number] [address] [place] [address] [place] Chloride [Moles/Vol] 105 mmol/L Normal 98-107 [facility] Comment on above: Order Comment: Speci men Type: BLOOD SPECIMEN Ordering Facility: [facility] Address: [address] [place] [address] Performed By: #### 3 -3, 72845-4 #### [facility] CLIA [id number] [address] [place] [address] [place] CO2 [Moles/Vol] 26 mmol/L Normal 22-30 [facility] Comment on above: Order Comment: Speci men Type: BLOOD SPECIMEN Ordering Facility: [facility] Address: [address] [place] [address] Performed By: #### 3 040-3, 85557-2 #### [facility] CLIA [id number] [address] [place] [address] [place] Creatinine [Mass/Vol] 0.76 mg/dL Normal 0.73-1.[address] [facility] Comment on above: Order Comment: Speci men Type: BLOOD SPECIMEN Ordering Facility: [facility] Address: [address] [place] [address] Performed By: #### 3 040-3, 84441-8 #### [facility] CLIA [id number] [address] [place] [address] [place] eGFRcr SerPlBld CKD-EPI 2020 112 mL/min/1.73m??? Normal >=60 [facility] Comment on above: Order Comment: Vikash vasquez Type: BLOOD SPECIMEN Ordering Facility: [facility] Address: [address] [place] [address] Result Comment: Katie mated Glomerular Filtration Rate [...] actual GFR. Performed By: #### 3 040-3, 86386-3 #### [facility] CLIA [id number] [address] [place] [address] [place] Glucose [Mass/Vol] 89 mg/dL Normal 74-99 [facility] Comment on above: Order Comment: Vikash vasquez Type: BLOOD SPECIMEN Ordering Facility: [facility] Address: [address] [place] [address] Result Comment: The [place] [employer] (ADA) provides guidance for cutoff [...] Standards of Medical Care in Diabetes 2016, [place] [employer]. Diabetes Care. 2016.39(Suppl 1). Performed By: #### 3 040-3, 59495-2 #### [facility] CLIA [id number] [address] [place] [address] [place] Potassium [Moles/Vol] 4.6 mmol/L Normal 3.7-5.[address] [facility] Comment on above: Order Comment: Vikash vasquez Type: BLOOD SPECIMEN Ordering Facility: [facility] Address: [address] [place] [address] Performed By: #### 3 040-3, 34631-9 #### [facility] CLIA [id number] [address] STATES [facility] Protein [Mass/Vol] 6.8 g/dL Normal 6.3-8.0 [facility] Comment on above: Order Comment: Speci men Type: BLOOD SPECIMEN Ordering Facility: [facility] Address: [address] [place] [address] Performed By: #### 3 040-3, 94167-6 #### [facility] CLIA [id number] [address] Sodium [Moles/Vol] 138 mmol/L Normal 136-144 [facility] Comment on above: Order Comment: Speci men Type: BLOOD SPECIMEN Ordering Facility: [facility] Address: [address] [place] [address] Performed By: #### 3 040-3, 30187-1 #### [facility] CLIA [id number] [address] Urea nitrogen [Mass/Vol] 6 mg/dL Low 9-24 [facility] Comment on above: Order Comment: Speci men Type: BLOOD SPECIMEN Ordering Facility: [facility] Address: [address] [place] [address] Performed By: #### 3 040-3, 91612-2 #### [facility] CLIA [id number] [address] ED NOTEon 03-02-2025 ED NOTE HNO ID: [id number] Author: BLAINE RABAGO RN Service: ? Author [...] of the education. Pt departed from ED. [facility] ED NOTE HNO ID: [id number] Author: BLAINE RABAGO RN Service: ? Author Type: Registered Nurse Type: ED Notes Filed: 03/02/2025 16:02 Note Text: Provider at bedside for reeval [facility] ED NOTE HNO ID: [id number] Author: BLAINE RABAGO, IBETH Service: ? Author Type: Registered Nurse Type: ED Notes Filed: 03/02/2025 14:35 Note Text: Patient given a warm blanket [facility] ED PROV NOTEon 03-02-2025 ED PROV NOTE HNO ID: [id number] Author: MACEY ISAACS DO Service: Emergency Medicine Author Type: Physician Type: ED Provider Notes Filed: 03/02/2025 17:30 Note Text: ED Provider Note Patient Name: Patrick Koroma : 1980 SERVICE DATE: 03/02/25 History Patient presents with: Abdominal Pain: Has known hernia. Scheduled for surgery in March at [facility] for same. Pain has been worsening for [...] IMPRESSION: No acute abnormality or bowel obstruction. Radar Systems Engineer: ALLAN Transcribe Date/Time: Mar 02 2025 3:29P [...] INTRAVENOUS Infusion (more content not included)... Normal [facility] Lipase SerPl-cCncon 03-02-20 Lipase [Catalytic activity/Vol] 18 U/L Normal [facility] Comment on above: Order Comment: Speci men Type: BLOOD SPECIMEN Ordering Facility: [facility] Address: [address] [place] [address] Performed By: #### 3 040-3, 49153-9 #### [facility] CLIA [id number] [address] [place] [address] [place] Abdomen/Pelvis W IV Cont ONL Yon 02-27-2025 Abdomen/Pelvis W IV Cont ONLY [facility] Imaging Services [address] [place], [place] [id number] Abdomen/Pelvis W IV Cont ONLY MR#: [id number] Acct: [id number] Name: PATRICK KOROMA Rep #: [id number] : 1980 M 45 From: Mary Collazo MD PCP: ERIC Anaya Status: REG ER Study: Abdomen/Pelvis W IV Cont ONLY Date of Exam: Exam# [id number] Ordering Dr: Joseluis Maier DO PROCEDURE: ABDOMEN/PELVIS [...] IN THE ABDOMEN OR PELVIS. Reading Location: [id number] CC: ERIC Starkey; Dr. Joseluis Maier DO Radar Systems Engineer: Signed Normal [facility] Absolute lymphocyte countOrd ered By: Joseluis Maier on 02-27-2025 Lymphocytes Auto (Unsp spec) [#/Vol] 3.43 10*3/uL 0.83-4.51 [facility] Absolute neutrophil countOrd ered By: Joseluis Maier on 02-27-2025 Neutrophils (Bld) [#/Vol] 5.5 10*3/uL 2.0-7.7 [facility] Anion gap in Serum or Plasma Ordered By: Joseluis Maier on 02-27-2025 Anion gap [Moles/Vol] 11 mmol/L 5-15 [facility] Automated lymphocyte count a s percentage of total leukocytesOrdered By: Joseluis Maier on 02-27-2025 Lymphocytes/100 WBC Auto (Unsp spec) 34.6 % 19-41 [facility] BUN/creatinine ratioOrdered By: Joseluis Alcantaras on 02-27-2025 Urea nitrogen/Creatinine [Mass ratio] 14.1 mg/mg 10-20 [facility] Basophil percentageOrdered B y: Joseluis Maravillarus on 02-27-2025 Basophils/100 WBC (Bld) 0.6 % 0-1 [facility] Bilirubin, totalOrdered By: Joseluis Maravillarus on 02-27-2025 Bilirubin [Mass/Vol] mg/dL 0.00-1.30 [facility] CBC W/Diff, Automatedon 02-14-2024 Absolute Lymph 3.43 X10 3/uL Normal 0.83-4.51 [facility] Comment on above: Performed By: #### L 503.6005, L100.0100, L501.2450, L500.4050 #### [facility] [address] [place], [address] Absolute Neut 5.5 X10 3/uL Normal 2.0-7.7 [facility] Comment on above: Performed By: #### L 503.6005, L100.0100, L501.2450, L500.4050 #### [facility] [address] [place], [address] Basophils/100 WBC (Bld) 0.6 % Normal 0-1 [facility] Comment on above: Performed By: #### L 503.6005, L100.0100, L501.2450, L500.4050 #### [facility] [address] [place], [address] Eosinophils/100 WBC (Bld) 2.2 % Normal 0-5 [facility] Comment on above: Performed By: #### L 503.6005, L100.0100, L501.2450, L500.4050 #### [facility] [address] [place], [address] Erythrocyte distribution width (RBC) [Ratio] 13.1 % Normal 11.6-14.6 [facility] Comment on above: Performed By: #### L 503.6005, L100.0100, L501.2450, L500.4050 #### [facility] [address] [place], [address] Hematocrit (Bld) [Volume fraction] 39.4 % Low 40-54 [facility] Comment on above: Performed By: #### L 503.6005, L100.0100, L501.2450, L500.4050 #### [facility] [address] [place], [address] Hemoglobin (Bld) [Mass/Vol] 13.4 g/dL Normal 13.0-16.5 [facility] Comment on above: Performed By: #### L 503.6005, L100.0100, L501.2450, L500.4050 #### [facility] [address] [place], [address] IG% 0.300 Normal 0.0-0.9 [facility] Comment on above: Result Comment: IG% - Immature Granulocytes (promyelocytes, myelocytes and metamyelocytes) > 1% indicates that a LEFT SHIFT is Present. Performed By: #### L 503.6005, L100.0100, L501.2450, L500.4050 #### [facility] [address] [place], [address] Lymphocytes/100 WBC (Bld) 34.6 % Normal 19-41 [facility] Comment on above: Performed By: #### L 503.6005, L100.0100, L501.2450, L500.4050 #### [facility] [address] [place], [address] MCH (RBC) [Entitic mass] 31.2 pg Normal 27.0-32.0 [facility] Comment on above: Performed By: #### L 503.6005, L100.0100, L501.2450, L500.4050 #### [facility] [address] [place], [address] MCHC (RBC) [Mass/Vol] 34.0 g/dL Normal 32-36 [facility] Comment on above: Performed By: #### L 503.6005, L100.0100, L501.2450, L500.4050 #### [facility] [address] [place], [address] MCV (RBC) [Entitic vol] 91.8 fL Normal 80-94 [facility] Comment on above: Performed By: #### L 503.6005, L100.0100, L501.2450, L500.4050 #### [facility] [address] [place], [address] Monocytes/100 WBC (Bld) 6.8 % Normal 0-10 [facility] Comment on above: Performed By: #### L 503.6005, L100.0100, L501.2450, L500.4050 #### [facility] [address] [place], [address] Neutrophils/100 WBC (Bld) 55.5 % Normal 47-70 [facility] Comment on above: Performed By: #### L 503.6005, L100.0100, L501.2450, L500.4050 #### [facility] [address] [place], [address] Nucleated RBC (Bld) [#/Vol] 0 10*3/uL Normal 0-5 [facility] Comment on above: Performed By: #### L 503.6005, L100.0100, L501.2450, L500.4050 #### [facility] [address] [place], [address] Platelet mean volume (Bld) [Entitic vol] 9.5 fL Normal 6.2-12.0 [facility] Comment on above: Performed By: #### L 503.6005, L100.0100, L501.2450, L500.4050 #### [facility] [address] [place], [address] Platelets (Bld) [#/Vol] 280 10*3/uL Normal 150-450 [facility] Comment on above: Performed By: #### L 503.6005, L100.0100, L501.2450, L500.4050 #### [facility] [address] [place], [address] RBC (Bld) [#/Vol] 4.29 10*6/uL Low 4.6-6.2 [facility] Comment on above: Performed By: #### L 503.6005, L100.0100, L501.2450, L500.4050 #### [facility] [address] [place], [address] RDW SD 43.8 fl Normal 35.1-43.9 [facility] Comment on above: Performed By: #### L 503.6005, L100.0100, L501.2450, L500.4050 #### [facility] [address] [place], [address] WBC (Bld) [#/Vol] 9.9 10*3/uL Normal 4.4-11.[address] [facility] Comment on above: Performed By: #### L 503.6005, L100.0100, L501.2450, L500.4050 #### [facility] [address] [place], [address] Carbon dioxide, total [Moles /volume] in Central venous bloodOrdered By: Joseluis Maier on 02-27-2025 CO2 [Moles/Vol] 22.6 mmol/L 21.0-32.0 [facility] Chloride assayOrdered By: Nicki josesito Maravillarus on 02-27-2025 Chloride [Moles/Vol] 107 mmol/L 98-108 [facility] Comprehensive Metabolic Prof ilon 02-27-2025 Albumin [Mass/Vol] 3.8 g/dL Normal 3.5-5.[address] [facility] Comment on above: Performed By: #### L 503.6005, L100.0100, L501.2450, L500.4050 ####[facility] [address] [place], [address] Albumin/Globulin [Mass ratio] 1.5 {ratio} Normal 0.9-2.4 [facility] Comment on above: Performed By: #### L 503.6005, L100.0100, L501.2450, L500.4050 ####[facility] [address] [place], [address] ALK PHOS 34 U/L Low 40-129 [facility] Comment on above: Performed By: #### L 503.6005, L100.0100, L501.2450, L500.4050 ####[facility] [address] [place], [address] ALT [Catalytic activity/Vol] 18 U/L Normal <=46 [facility] Comment on above: Performed By: #### L 503.6005, L100.0100, L501.2450, L500.4050 ####[facility] [address] [place], [address] AST [Catalytic activity/Vol] 21 U/L Normal <=37 [facility] Comment on above: Performed By: #### L 503.6005, L100.0100, L501.2450, L500.4050 ####[facility] [address] [place], [address] BUN/CRE 14.1 RATIO Normal 10-20 [facility] Comment on above: Performed By: #### L 503.6005, L100.0100, L501.2450, L500.4050 ####[facility] [address] [place], [address] Calcium [Mass/Vol] 9.3 mg/dL Normal 7.6-11.[address] [facility] Comment on above: Performed By: #### L 503.6005, L100.0100, L501.2450, L500.4050 ####[facility] [address] [place], [address] Chloride [Moles/Vol] 107 mmol/L Normal 98-108 [facility] Comment on above: Performed By: #### L 503.6005, L100.0100, L501.2450, L500.4050 ####[facility] [address] [place], [address] CO2 [Moles/Vol] 22.6 mmol/L Normal 21.0-32.0 [facility] Comment on above: Performed By: #### L 503.6005, L100.0100, L501.2450, L500.4050 ####[facility] [address] [place], [address] Creatinine [Mass/Vol] 0.82 mg/dL Normal 0.70-1.20 [facility] Comment on above: Performed By: #### L 503.6005, L100.0100, L501.2450, L500.4050 ####[facility] [address] [place], [address] ECRCL 178.28 ml/min Normal 50-250 [facility] Comment on above: Performed By: #### L 503.6005, L100.0100, L501.2450, L500.4050 ####[facility] [address] [place], [address] GAP 11 Normal 5-15 [facility] Comment on above: Performed By: #### L 503.6005, L100.0100, L501.2450, L500.4050 ####[facility] [address] [place], [address] GFR/1.73 sq M.predicted among non-blacks MDRD (S/P/Bld) [Vol rate/Area] 110 mL/min/{1.73_m2} Normal >60 [facility] Comment on above: Result Comment: mL/m in/1.73m2 CKD-EPI Creatinine Equation (2020) Performed By: #### L 503.6005, L100.0100, L501.2450, L500.4050 ####[facility] [address] [place], [address] Globulin (S) [Mass/Vol] 2.6 g/dL Normal 2.2-4.2 [facility] Comment on above: Performed By: #### L 503.6005, L100.0100, L501.2450, L500.4050 ####[facility] [address] [place], [address] Glucose [Mass/Vol] 108 mg/dL High 70-[address] [facility] Comment on above: Performed By: #### L 503.6005, L100.0100, L501.2450, L500.4050 ####[facility] [address] [place], [address] Potassium [Moles/Vol] 3.8 mmol/L Normal 3.3-5.1 [facility] Comment on above: Performed By: #### L 503.6005, L100.0100, L501.2450, L500.4050 ####[facility] [address] [place], [address] Sodium [Moles/Vol] 140 mmol/L Normal 133-[address] [facility] Comment on above: Performed By: #### L 503.6005, L100.0100, L501.2450, L500.4050 ####[facility] [address] [place], [address] T BILI < 0.15 Normal 0.00-1.30 [facility] Comment on above: Performed By: #### L 503.6005, L100.0100, L501.2450, L500.4050 ####[facility] [address] [place], [address] T PROT 6.3 g/dL Normal 5.9-8.4 [facility] Comment on above: Performed By: #### L 503.6005, L100.0100, L501.2450, L500.4050 ####[facility] [address] [place], [address] Urea nitrogen [Mass/Vol] 12 mg/dL Normal 4-19 [facility] Comment on above: Performed By: #### L 503.6005, L100.0100, L501.2450, L500.4050 ####[facility] [address] [place], [address] Emergency Department Summary on 02-27-2025 Emergency Department Summary [facility] Medical Records Department [address] [place] [address] Emergency Department Summary 02/27/25 MR#: [id number] Acct: [id number] Name: PATRICK KOROMA Rep #: [id number] : 1980 45 From: Joseluis Maier DO PCP: ERIC Anaya Status:REG ER Location: ED HPI History of Present Illness Chief Complaint: Abd Pain [facility] Medical History (Updated 02/27/25 @ 22:34 [...] appendectomy. Notes he follows a specialist at [facility]. Notes he has a surgical evaluation/ [...] MEDICAL DECISION MAKING: Chief Complaint: please see [facility] External records reviewed: Seen on 02/2025 for abdominal pain. Reviewed prior imaging studies. Reviewed imaging studies from January 07 which shows Factors affecting care: As per [facility] Social determinants of health: none History obtained from others: Fianc??? Consults: none [facility] Narrative: The patient was initially hypertensive [...] treat th (more content not included)... Normal [facility] Eosinophil percentageOrdered By: Joseluis Maier on 02-27-2025 Eosinophils/100 WBC (Bld) 2.2 % 0-5 [facility] Erythrocyte distribution wid th ratioOrdered By: Joseluis Maier on 02-27-2025 Erythrocyte distribution width (RBC) [Ratio] 13.1 % 11.6-14.6 [facility] Erythrocyte distribution wid th standard deviationOrdered By: Joseluis Maier on 02-27-2025 Erythrocyte distribution width (RBC) [Ratio] 43.8 fl 35.1-43.9 [facility] Glomerular filtration rate ( GFR) estimation/1.73 sq m using serum, plasma, or whole bOrdered By: Joseluis Maier on 02-27-2025 GFR/1.73 sq M.predicted among non-blacks MDRD (S/P/Bld) [Vol rate/Area] 110 mL/min/{1.73_m2} >60 [facility] Comment on above: mL/min/1.73m2 CKD-EP I Creatinine Equation (2020) Hematocrit Auto (Bld) [Volum e fraction]Ordered By: Joseluis Maier on 02-27-2025 Hematocrit (Bld) [Volume fraction] 39.4 % Low 40-54 [facility] Hemoglobin measurementOrdere d By: Joseluis Maier on 02-27-2025 Hemoglobin (Bld) [Mass/Vol] 13.4 g/dL 13.0-16.5 [facility] Immature granulocytes/100 WB C Auto (Bld)Ordered By: Joseluis Maier on 02-27-2025 Immature granulocytes/100 WBC (Bld) 0.300 % 0.0-0.9 [facility] Comment on above: IG% - Immature Granu locytes (promyelocytes, myelocytes and metamyelocytes) > 1% indicates that a LEFT SHIFT is Present. Laboratory - Chemistry and C hemistry - challengeOrdered By: Joseluis Maier on 02-27-2025 AST [Catalytic activity/Vol] 21 U/L <38 [facility] Lactic Acidon 02-27-2025 Lactate [Moles/Vol] 1.5 mmol/L Normal 0.0-2.0 [facility] Comment on above: Order Comment: Y Performed By: #### L 503.6005, L100.0100, L501.2450, L500.4050 #### [facility] [address] [place], [address] Lactic acid measurementOrder ed By: Joseluis Miaer on 02-27-2025 Lactate [Moles/Vol] 1.5 mmol/L 0.0-2.0 [facility] Lipaseon 02-27-2025 Lipase [Catalytic activity/Vol] 37 U/L Normal 13-75 [facility] Comment on above: Result Comment: Scout kline note: LIPASE revised reference range effective 22. New Lipase methodology. Expected to produce lower values than the previous assay method. NEW Reference Range: 13 - 75 U/L Performed By: #### L 503.6005, L100.0100, L501.2450, L500.4050 ####[facility] [address] [place], [address] Lipase measurementOrdered By : Joseluis Maier on 02-27-2025 Lipase [Catalytic activity/Vol] 37 U/L 13-75 [facility] Comment on above: Please note:LIPASE r evised reference range effective 22. New Lipase methodology. Expected to produce lower values than the previous assay method. NEW Reference Range: 13 - 75 U/L MCV (mean corpuscular volume ) determinationOrdered By: Joseluis Maier on 02-27-2025 MCV (RBC) [Entitic vol] 91.8 fL 80-94 [facility] Mean corpuscular hemoglobin (MCH) determinationOrdered By: Joseluis Maier on 02-27-2025 MCH (RBC) [Entitic mass] 31.2 pg 27.0-32.0 [facility] Mean corpuscular hemoglobin concentration (MCHC) determinationOrdered By: Joseluis Maier on 02-27-2025 MCHC (RBC) [Mass/Vol] 34.0 g/dL 32-36 [facility] Mean platelet volume determi nationOrdered By: Joseluis Maier on 02-27-2025 Platelet mean volume (Bld) [Entitic vol] 9.5 fL 6.2-12.0 [facility] Monocyte percentageOrdered B y: Joseluis Maier on 02-27-2025 Monocytes/100 WBC (Bld) 6.8 % 0-10 [facility] Neutrophil percentageOrdered By: Joseluis Maier on 02-27-2025 Neutrophils/100 WBC (Bld) 55.5 % 47-70 [facility] Nucleated red blood cell per centageOrdered By: Joseluis Maier on 09-14-2025 Nucleated RBC/100 WBC (Bld) [Ratio] 0 % 0-5 [facility] Platelet countOrdered By: Nicki Maier on 02-27-2025 Platelets (Bld) [#/Vol] 280 10*3/uL 150-450 [facility] Potassium measurement (mass/ volume)Ordered By: Joseluis Maier on 02-27-2025 Potassium (Unsp spec) [Mass/Vol] 3.8 mmol/L 3.3-5.1 [facility] RBC Auto (Bld) [#/Vol]Ordere d By: Joseluis Maier on 02-27-2025 RBC (Bld) [#/Vol] 4.29 10*6/uL Low 4.6-6.2 [facility] Serum creatinine measurement (mass/volume)Ordered By: Joseluis Maier on 02-27-2025 Creatinine [Mass/Vol] 0.82 mg/dL 0.70-1.20 [facility] Serum globulin measurementOr dered By: Joseluis Maier on 02-27-2025 Globulin (S) [Mass/Vol] 2.6 g/dL 2.2-4.2 [facility] Serum glucose measurement (m ass/volume)Ordered By: Joseluis Maier on 02-27-2025 Glucose [Mass/Vol] 108 mg/dL High 70-[address] [facility] Serum or plasma alanine carrera otransferase (ALT) measurementOrdered By: Joseluis Maier on 02-27-2025 ALT [Catalytic activity/Vol] 18 U/L <47 [facility] Serum or plasma albumin za urement (mass/volume)Ordered By: Joseluis Maier on 02-27-2025 Albumin [Mass/Vol] 3.8 g/dL 3.5-5.[address] [facility] Serum or plasma albumin/glob ulin mass ratioOrdered By: Joseluis Maier on 02-27-2025 Albumin/Globulin [Mass ratio] 1.5 {ratio} 0.9-2.4 [facility] Serum or plasma alkaline carmen sphatase measurementOrdered By: Joseluis Maier on 02-27-2025 ALP [Catalytic activity/Vol] 34 U/L Low 40-129 [facility] Serum or plasma calcium za urement (mass/volume)Ordered By: Joseluis Maier on 02-27-2025 Calcium [Mass/Vol] 9.3 mg/dL 7.6-11.[address] [facility] Serum or plasma urea nitroge n measurement (mass/volume)Ordered By: Joseluis Maier on 02-27-2025 Urea nitrogen [Mass/Vol] 12 mg/dL 4-19 [facility] Sodium levelOrdered By: Leidy Maier on 02-27-2025 Sodium [Moles/Vol] 140 mmol/L 133-[address] [facility] Total proteinOrdered By: Shamika Maier on 02-27-2025 Protein [Mass/Vol] 6.3 g/dL 5.9-8.[address] [facility] White blood cell (WBC) count Ordered By: Joseluis Maier on 02-27-2025 WBC (Bld) [#/Vol] 9.9 10*3/uL 4.4-11.[address] [facility] Absolute lymphocyte countOrd ered By: Guero Baker on 02-17-2025 Lymphocytes Auto (Unsp spec) [#/Vol] 3.60 10*3/uL 0.83-4.51 [facility] Absolute neutrophil countOrd ered By: Guero Baker on 02-17-2025 Neutrophils (Bld) [#/Vol] 8.0 10*3/uL High 2.0-7.7 [facility] Anion gap in Serum or Plasma Ordered By: Guero Baker on 02-17-2025 Anion gap [Moles/Vol] 12 mmol/L 5-15 [facility] Automated lymphocyte count a s percentage of total leukocytesOrdered By: Guero Baker on 02-17-2025 Lymphocytes/100 WBC Auto (Unsp spec) 27.8 % 19-41 [facility] BUN/creatinine ratioOrdered By: Guero Baker on 02-17-2025 Urea nitrogen/Creatinine [Mass ratio] 10.1 mg/mg 10- [facility] Basic Metabolic Profile (BMP )on 02-17-2025 BUN/CRE 10.1 RATIO Normal - [facility] Comment on above: Performed By: #### L 503.6005, L500.3400, L500.2500, L501.2450, L100.0100 ####[facility] [address] [place], [address] Calcium [Mass/Vol] 9.0 mg/dL Normal 7.6-11.[address] [facility] Comment on above: Performed By: #### L 503.6005, L500.3400, L500.2500, L501.2450, L100.0100 ####[facility] [address] [place], [address] Chloride [Moles/Vol] 102 mmol/L Normal 98-108 [facility] Comment on above: Performed By: #### L 503.6005, L500.3400, L500.2500, L501.2450, L100.0100 ####[facility] [address] [place], [address] CO2 [Moles/Vol] 24.1 mmol/L Normal 21.0-32.0 [facility] Comment on above: Performed By: #### L 503.6005, L500.3400, L500.2500, L501.2450, L100.0100 ####[facility] [address] [place], [address] Creatinine [Mass/Vol] 0.91 mg/dL Normal 0.70-1.20 [facility] Comment on above: Performed By: #### L 503.6005, L500.3400, L500.2500, L501.2450, L100.0100 ####[facility] [address] [place], [address] ECRCL 159.78 ml/min Normal 50-250 [facility] [facility] Comment on above: Performed By: #### L 503.6005, L500.3400, L500.2500, L501.2450, L100.0100 ####[facility] [address] [place], [address] GAP 12 Normal 5-15 [facility] Comment on above: Performed By: #### L 503.6005, L500.3400, L500.2500, L501.2450, L100.0100 ####[facility] [address] [place], [address] GFR/1.73 sq M.predicted among non-blacks MDRD (S/P/Bld) [Vol rate/Area] 106 mL/min/{1.73_m2} Normal >60 [facility] Comment on above: Result Comment: mL/m in/1.73m2 CKD-EPI Creatinine Equation (2020) Performed By: #### L 503.6005, L500.3400, L500.2500, L501.2450, L100.0100 ####[facility] [address] [place], [address] Glucose [Mass/Vol] 106 mg/dL High 70-[address] [facility] Comment on above: Performed By: #### L 503.6005, L500.3400, L500.2500, L501.2450, L100.0100 ####[facility] [address] [place], [address] Potassium [Moles/Vol] 3.7 mmol/L Normal 3.3-5.1 [facility] Comment on above: Performed By: #### L 503.6005, L500.3400, L500.2500, L501.2450, L100.0100 ####[facility] [address] [place], [address] Sodium [Moles/Vol] 138 mmol/L Normal 133-[address] [facility] Comment on above: Performed By: #### L 503.6005, L500.3400, L500.2500, L501.2450, L100.0100 ####[facility] [address] [place], [address] Urea nitrogen [Mass/Vol] 9 mg/dL Normal 4-19 [facility] Comment on above: Performed By: #### L 503.6005, L500.3400, L500.2500, L501.2450, L100.0100 ####[facility] [address] [place], [address] Basophil percentageOrdered B y: Guero Baker on 02-17-2025 Basophils/100 WBC (Bld) 0.7 % 0-1 [facility] Bilirubin directOrdered By: Guero Baker on 02-17-2025 Bilirubin.direct [Mass/Vol] 0.12 mg/dL 0.00-0.30 [facility] Bilirubin, totalOrdered By: Guero Baker on 02-17-2025 Bilirubin [Mass/Vol] 0.35 mg/dL 0.00-1.30 [facility] CBC W/Diff, Automatedon Absolute Lymph 3.60 X10 3/uL Normal 0.83-4.51 [facility] Comment on above: Performed By: #### L 503.6005, L500.3400, L500.2500, L501.2450, L100.0100 ####[facility] [address] [place], [address] Absolute Neut 8.0 X10 3/uL High 2.0-7.7 [facility] Comment on above: Performed By: #### L 503.6005, L500.3400, L500.2500, L501.2450, L100.0100 ####[facility] [address] [place], [address] Basophils/100 WBC (Bld) 0.7 % Normal 0-1 [facility] Comment on above: Performed By: #### L 503.6005, L500.3400, L500.2500, L501.2450, L100.0100 ####[facility] [address] [place], [address] Eosinophils/100 WBC (Bld) 2.0 % Normal 0-5 [facility] Comment on above: Performed By: #### L 503.6005, L500.3400, L500.2500, L501.2450, L100.0100 ####[facility] [address] [place], [address] Erythrocyte distribution width (RBC) [Ratio] 12.8 % Normal 11.6-14.6 [facility] Comment on above: Performed By: #### L 503.6005, L500.3400, L500.2500, L501.2450, L100.0100 ####[facility] [address] [place], [address] Hematocrit (Bld) [Volume fraction] 41.2 % Normal 40-54 [facility] Comment on above: Performed By: #### L 503.6005, L500.3400, L500.2500, L501.2450, L100.0100 ####[facility] [address] [place], [address] Hemoglobin (Bld) [Mass/Vol] 14.3 g/dL Normal 13.0-16.5 [facility] Comment on above: Performed By: #### L 503.6005, L500.3400, L500.2500, L501.2450, L100.0100 ####[facility] [address] [place], [address] IG% 0.400 Normal 0.0-0.9 [facility] Comment on above: Result Comment: IG% - Immature Granulocytes (promyelocytes, myelocytes and metamyelocytes) > 1% indicates that a LEFT SHIFT is Present. Performed By: #### L 503.6005, L500.3400, L500.2500, L501.2450, L100.0100 ####[facility] [address] [place], [address] Lymphocytes/100 WBC (Bld) 27.8 % Normal 19-41 [facility] Comment on above: Performed By: #### L 503.6005, L500.3400, L500.2500, L501.2450, L100.0100 ####[facility] [address] [place], [address] MCH (RBC) [Entitic mass] 31.4 pg Normal 27.0-32.0 [facility] Comment on above: Performed By: #### L 503.6005, L500.3400, L500.2500, L501.2450, L100.0100 ####[facility] [address] [place], [address] MCHC (RBC) [Mass/Vol] 34.7 g/dL Normal 32-36 [facility] Comment on above: Performed By: #### L 503.6005, L500.3400, L500.2500, L501.2450, L100.0100 ####[facility] [address] [place], [address] MCV (RBC) [Entitic vol] 90.5 fL Normal 80-94 [facility] Comment on above: Performed By: #### L 503.6005, L500.3400, L500.2500, L501.2450, L100.0100 ####[facility] [address] [place], [address] Monocytes/100 WBC (Bld) 7.0 % Normal 0-10 [facility] Comment on above: Performed By: #### L 503.6005, L500.3400, L500.2500, L501.2450, L100.0100 ####[facility] [address] [place], [address] Neutrophils/100 WBC (Bld) 62.1 % Normal 47-70 [facility] Comment on above: Performed By: #### L 503.6005, L500.3400, L500.2500, L501.2450, L100.0100 ####[facility] [address] [place], [address] Nucleated RBC (Bld) [#/Vol] 0 10*3/uL Normal 0-5 [facility] Comment on above: Performed By: #### L 503.6005, L500.3400, L500.2500, L501.2450, L100.0100 ####[facility] [address] [place], [address] Platelet mean volume (Bld) [Entitic vol] 9.2 fL Normal 6.2-12.0 [facility] Comment on above: Performed By: #### L 503.6005, L500.3400, L500.2500, L501.2450, L100.0100 ####[facility] [address] [place], [address] Platelets (Bld) [#/Vol] 320 10*3/uL Normal 150-450 [facility] Comment on above: Performed By: #### L 503.6005, L500.3400, L500.2500, L501.2450, L100.0100 ####[facility] [address] [place], [address] RBC (Bld) [#/Vol] 4.55 10*6/uL Low 4.6-6.2 [facility] Comment on above: Performed By: #### L 503.6005, L500.3400, L500.2500, L501.2450, L100.0100 ####[facility] [address] [place], [address] RDW SD 42.5 fl Normal 35.1-43.9 [facility] Comment on above: Performed By: #### L 503.6005, L500.3400, L500.2500, L501.2450, L100.0100 ####[facility] [address] [place], [address] WBC (Bld) [#/Vol] 12.9 10*3/uL High 4.4-11.0 [facility] Comment on above: Performed By: #### L 503.6005, L500.3400, L500.2500, L501.2450, L100.0100 ####[facility] [address] [facility] [place], [address] Carbon dioxide, total [Moles /volume] in Central venous bloodOrdered By: Guero Baker on 02-17-2025 CO2 [Moles/Vol] 24.1 mmol/L 21.0-32.0 [facility] Chloride assayOrdered By: Maru Baker on 02-17-2025 Chloride [Moles/Vol] 102 mmol/L 98-108 [facility] Emergency Department Summary on 02-17-2025 Emergency Department Summary [facility] Medical Records Department [address] [place] [address] Emergency Department Summary 02/17/25 MR#: [id number] Acct: [id number] Name: PATRICK KOROMA Rep #: [id number] : 1980 45 From: Guero Baker DO PCP: ERIC Anaya Status:DEP ER Location: ED HPI History of Present Illness Chief Complaint: Abd Pain Informant: patient Narrative Narrative: Patient is a 45-year-old male with past medical history of a large ventral hernia. He states he is following with a specialist at [facility] and is scheduled to have the hernia fixed in mid March. He states there has been no fevers chills nausea vomiting diarrhea or constipation. He states has been no recent trauma or excessive activity. However this evening he developed midepigastric abdominal pain that was more intense than his baseline pain from his hernia and secondary to this comes in for evaluation. [facility] Medical History Seroma after procedure Influenza [...] reported midepigastr (more content not included)... Normal [facility] Eosinophil percentageOrdered By: Guero Baker on 02-17-2025 Eosinophils/100 WBC (Bld) 2.0 % 0-5 [facility] Erythrocyte distribution wid th ratioOrdered By: Guero Baker on 02-17-2025 Erythrocyte distribution width (RBC) [Ratio] 12.8 % 11.6-14.6 [facility] Erythrocyte distribution wid th standard deviationOrdered By: Guero Baker on 02-17-2025 Erythrocyte distribution width (RBC) [Ratio] 42.5 fl 35.1-43.9 [facility] Glomerular filtration rate ( GFR) estimation/1.73 sq m using serum, plasma, or whole bOrdered By: Guero Baker on 02-17-2025 GFR/1.73 sq M.predicted among non-blacks MDRD (S/P/Bld) [Vol rate/Area] 106 mL/min/{1.73_m2} >60 [facility] Comment on above: mL/min/1.73m2 CKD-EP I Creatinine Equation (2020) Hematocrit Auto (Bld) [Volum e fraction]Ordered By: Guero Baker on 02-17-2025 Hematocrit (Bld) [Volume fraction] 41.2 % 40-54 [facility] Hemoglobin measurementOrdere d By: Guero Baker on 02-17-2025 Hemoglobin (Bld) [Mass/Vol] 14.3 g/dL 13.0-16.5 [facility] Immature granulocytes/100 WB C Auto (Bld)Ordered By: Guero Baker on 02-17-2025 Immature granulocytes/100 WBC (Bld) 0.400 % 0.0-0.9 [facility] Comment on above: IG% - Immature Granu locytes (promyelocytes, myelocytes and metamyelocytes) > 1% indicates that a LEFT SHIFT is Present. Laboratory - Chemistry and C hemistry - challengeOrdered By: Guero Baker on 02-17-2025 AST [Catalytic activity/Vol] 24 U/L <38 [facility] Lactic Acidon 02-17-2025 Lactate [Moles/Vol] 1.3 mmol/L Normal 0.0-2.0 [facility] Comment on above: Order Comment: Y Performed By: #### L 503.6005, L500.3400, L500.2500, L501.2450, L100.0100 ####[facility] [address] [place], [address] Lactic acid measurementOrder ed By: Guero Baker on 02-17-2025 Lactate [Moles/Vol] 1.3 mmol/L 0.0-2.0 [facility] Lipaseon 02-17-2025 Lipase [Catalytic activity/Vol] 50 U/L Normal 13-75 [facility] Comment on above: Result Comment: Scout kline note: LIPASE revised reference range effective 22. New Lipase methodology. Expected to produce lower values than the previous assay method. NEW Reference Range: 13 - 75 U/L Performed By: #### L 503.6005, L500.3400, L500.2500, L501.2450, L100.0100 ####[facility] [address] [place], [address] Lipase measurementOrdered By : Guero Baker on 02-17-2025 Lipase [Catalytic activity/Vol] 50 U/L 13-75 [facility] Comment on above: Please note:LIPASE r evised reference range effective 22. New Lipase methodology. Expected to produce lower values than the previous assay method. NEW Reference Range: 13 - 75 U/L Liver Profileon 02-17-2025 Albumin [Mass/Vol] 4.0 g/dL Normal 3.5-5.[address] [facility] Comment on above: Performed By: #### L 503.6005, L500.3400, L500.2500, L501.2450, L100.0100 ####[facility] [address] [place], [address] ALK PHOS 38 U/L Low 40-129 [facility] Comment on above: Performed By: #### L 503.6005, L500.3400, L500.2500, L501.2450, L100.0100 ####[facility] [address] [place], [address] ALT [Catalytic activity/Vol] 19 U/L Normal <=46 [facility] Comment on above: Performed By: #### L 503.6005, L500.3400, L500.2500, L501.2450, L100.0100 ####[facility] [address] [place], [address] AST [Catalytic activity/Vol] 24 U/L Normal <=37 [facility] Comment on above: Performed By: #### L 503.6005, L500.3400, L500.2500, L501.2450, L100.0100 ####[facility] [address] [place], [address] Bilirubin [Mass/Vol] 0.35 mg/dL Normal 0.00-1.30 [facility] Comment on above: Performed By: #### L 503.6005, L500.3400, L500.2500, L501.2450, L100.0100 ####[facility] [address] [place], [address] Bilirubin.direct [Mass/Vol] 0.12 mg/dL Normal 0.00-0.30 [facility] Comment on above: Performed By: #### L 503.6005, L500.3400, L500.2500, L501.2450, L100.0100 ####[facility] [address] [place], [address] Globulin (S) [Mass/Vol] 3.0 g/dL Normal 2.2-4.2 [facility] Comment on above: Performed By: #### L 503.6005, L500.3400, L500.2500, L501.2450, L100.0100 ####[facility] [address] [place], [address] T PROT 7.0 g/dL Normal 5.9-8.4 [facility] Comment on above: Performed By: #### L 503.6005, L500.3400, L500.2500, L501.2450, L100.0100 ####[facility] [address] [place], [address] MCV (mean corpuscular volume ) determinationOrdered By: Guero Baker on 02-17-2025 MCV (RBC) [Entitic vol] 90.5 fL 80-94 [facility] Mean corpuscular hemoglobin (MCH) determinationOrdered By: Guero Baker on 02-17-2025 MCH (RBC) [Entitic mass] 31.4 pg 27.0-32.0 [facility] Mean corpuscular hemoglobin concentration (MCHC) determinationOrdered By: Guero Baker on 02-17-2025 MCHC (RBC) [Mass/Vol] 34.7 g/dL 32-36 [facility] Mean platelet volume determi nationOrdered By: Guero Baker on 02-17-2025 Platelet mean volume (Bld) [Entitic vol] 9.2 fL 6.2-12.0 [facility] Monocyte percentageOrdered B y: Guero Baker on 02-17-2025 Monocytes/100 WBC (Bld) 7.0 % 0-10 [facility] Neutrophil percentageOrdered By: Guero Baker on 02-17-2025 Neutrophils/100 WBC (Bld) 62.1 % 47-70 [facility] Nucleated red blood cell per centageOrdered By: Guero Baker on 02-17-2025 Nucleated RBC/100 WBC (Bld) [Ratio] 0 % 0-5 [facility] Platelet countOrdered By: Maru Baker on 02-17-2025 Platelets (Bld) [#/Vol] 320 10*3/uL 150-450 [facility] Potassium measurement (mass/ volume)Ordered By: Guero Baker on 02-17-2025 Potassium (Unsp spec) [Mass/Vol] 3.7 mmol/L 3.3-5.1 [facility] RBC Auto (Bld) [#/Vol]Ordere d By: Guero Baker on 02-17-2025 RBC (Bld) [#/Vol] 4.55 10*6/uL Low 4.6-6.2 [facility] Serum creatinine measurement (mass/volume)Ordered By: Guero Baker on 02-17-2025 Creatinine [Mass/Vol] 0.91 mg/dL 0.70-1.20 [facility] Serum globulin measurementOr dered By: Guero Baker on 02-17-2025 Globulin (S) [Mass/Vol] 3.0 g/dL 2.2-4.2 [facility] Serum glucose measurement (m ass/volume)Ordered By: Guero Baker on 02-17-2025 Glucose [Mass/Vol] 106 mg/dL High 70-[address] [facility] Serum or plasma alanine carrera otransferase (ALT) measurementOrdered By: Guero Baker on 02-17-2025 ALT [Catalytic activity/Vol] 19 U/L <47 [facility] Serum or plasma albumin za urement (mass/volume)Ordered By: Guero Baker on 02-17-2025 Albumin [Mass/Vol] 4.0 g/dL 3.5-5.[address] [facility] Serum or plasma alkaline carmen sphatase measurementOrdered By: Guero Baker on 02-17-2025 ALP [Catalytic activity/Vol] 38 U/L Low 40-129 [facility] Serum or plasma calcium za urement (mass/volume)Ordered By: Guero Baker on 02-17-2025 Calcium [Mass/Vol] 9.0 mg/dL 7.6-11.[address] [facility] Serum or plasma urea nitroge n measurement (mass/volume)Ordered By: Guero Baker on 02-17-2025 Urea nitrogen [Mass/Vol] 9 mg/dL 4-19 [facility] Sodium levelOrdered By: Scott Baker on 02-17-2025 Sodium [Moles/Vol] 138 mmol/L 133-[address] [facility] Total proteinOrdered By: Yovani Baker on 02-17-2025 Protein [Mass/Vol] 7.0 g/dL 5.9-8.[address] [facility] White blood cell (WBC) count Ordered By: Guero Baker on 02-17-2025 WBC (Bld) [#/Vol] 12.9 10*3/uL High 4.4-11.0 [facility] CBC W/Diff, Automatedon 01-14 PLT EST ADEQUATE Normal ADEQ [facility] Comment on above: Performed By: #### L 500.3400, L100.0100, L501.2450, L503.6005, L500.2500 ####[facility] [address] [place], [place], [id number] RED CELL MORPH NORM C+C Normal NORM C C [facility] Comment on above: Performed By: #### L 500.3400, L100.0100, L501.2450, L503.6005, L500.2500 ####[facility] [address] [place], [address] SMEAR COMMENT SCANNED Normal [facility] Comment on above: Performed By: #### L 500.3400, L100.0100, L501.2450, L503.6005, L500.2500 ####[facility] [address] 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 He denies any fevers or chills or trauma. However he has been having increasing pain along the mid abdomen radiating towards the left that is worse with motion. He states it is not being controlled with qbrk-zic-rlgtrej medications and therefore comes in for evaluation. The patient states that there has been no fevers or chills diarrhea constipation dysuria. He denies any nausea or vomiting either. He denies any known sick contacts [facility] Medical History Seroma after procedure Influenza [...] peritoneal sign (more content not included)... Normal [facility] Absolute lymphocyte countOrd ered By: Guero Baker on 01-25-2025 Lymphocytes Auto (Unsp spec) [#/Vol] 4.28 10*3/uL 0.83-4.51 [facility] Absolute neutrophil countOrd ered By: Guero Baker on 01-25-2025 Neutrophils (Bld) [#/Vol] 6.3 10*3/uL 2.0-7.7 [facility] Anion gap in Serum or Plasma Ordered By: Guero Baker on 01-25-2025 Anion gap [Moles/Vol] 12 mmol/L 5-15 [facility] Automated lymphocyte count a s percentage of total leukocytesOrdered By: Guero Baker on 01-25-2025 Lymphocytes/100 WBC Auto (Unsp spec) 36.6 % 19-41 [facility] BUN/creatinine ratioOrdered By: Guero Baker on 01-25-2025 Urea nitrogen/Creatinine [Mass ratio] 11.4 mg/mg - [facility] Basic Metabolic Profile (BMP )on 01-25-2025 BUN/CRE 11.4 RATIO Normal - [facility] Comment on above: Performed By: #### L 500.3400, L100.0100, L501.2450, L503.6005, L500.2500 ####[facility] [address] [place], [place], [id number] Calcium [Mass/Vol] 9.6 mg/dL Normal 7.6-11.[address] [facility] Comment on above: Performed By: #### L 500.3400, L100.0100, L501.2450, L503.6005, L500.2500 ####[facility] [address] [place], [address] Chloride [Moles/Vol] 104 mmol/L Normal 98-108 [facility] Comment on above: Performed By: #### L 500.3400, L100.0100, L501.2450, L503.6005, L500.2500 ####[facility] [address] [place], [address] CO2 [Moles/Vol] 22.2 mmol/L Normal 21.0-32.0 [facility] Comment on above: Performed By: #### L 500.3400, L100.0100, L501.2450, L503.6005, L500.2500 ####[facility] [address] [place], [address] Creatinine [Mass/Vol] 0.88 mg/dL Normal 0.70-1.20 [facility] Comment on above: Performed By: #### L 500.3400, L100.0100, L501.2450, L503.6005, L500.2500 ####[facility] [address] [place], [address] ECRCL 165.23 ml/min Normal 50-250 [facility] Comment on above: Performed By: #### L 500.3400, L100.0100, L501.2450, L503.6005, L500.2500 ####[facility] [address] [place], [address] GAP 12 Normal 5-15 [facility] Comment on above: Performed By: #### L 500.3400, L100.0100, L501.2450, L503.6005, L500.2500 ####[facility] [address] [place], [address] GFR/1.73 sq M.predicted among non-blacks MDRD (S/P/Bld) [Vol rate/Area] 107 mL/min/{1.73_m2} Normal >60 [facility] Comment on above: Result Comment: mL/m in/1.73m2 CKD-EPI Creatinine Equation (2020) Performed By: #### L 500.3400, L100.0100, L501.2450, L503.6005, L500.2500 ####[facility] [address] [place], [address] Glucose [Mass/Vol] 90 mg/dL Normal 70-[address] [facility] Comment on above: Performed By: #### L 500.3400, L100.0100, L501.2450, L503.6005, L500.2500 ####[facility] [address] [place], [address] Potassium [Moles/Vol] 4.2 mmol/L Normal 3.3-5.1 [facility] Comment on above: Performed By: #### L 500.3400, L100.0100, L501.2450, L503.6005, L500.2500 ####[facility] [address] [place], [address] Sodium [Moles/Vol] 139 mmol/L Normal 133-[address] [facility] Comment on above: Performed By: #### L 500.3400, L100.0100, L501.2450, L503.6005, L500.2500 ####[facility] [address] [place], [address] Urea nitrogen [Mass/Vol] 10 mg/dL Normal 4-19 [facility] Comment on above: Performed By: #### L 500.3400, L100.0100, L501.2450, L503.6005, L500.2500 ####[facility] [address] [place], [address] Basophil percentageOrdered B y: Guero Baker on 01-25-2025 Basophils/100 WBC (Bld) 0.9 % 0-1 [facility] Bilirubin directOrdered By: Guero Baker on 01-25-2025 Bilirubin.direct [Mass/Vol] mg/dL 0.00-0.30 [facility] Bilirubin, totalOrdered By: Guero Baker on 01-25-2025 Bilirubin [Mass/Vol] 0.17 mg/dL 0.00-1.30 [facility] Blood manual differential co mment interpretation (narrative result)Ordered By: Guero Baker on 01-25-2025 Manual differential comment Alonso (Bld) [Interp] SCANNED [facility] Carbon dioxide, total [Moles /volume] in Central venous bloodOrdered By: Guero Baker on 01-25-2025 CO2 [Moles/Vol] 22.2 mmol/L 21.0-32.0 [facility] Chloride assayOrdered By: Maru Baker on 01-25-2025 Chloride [Moles/Vol] 104 mmol/L 98-108 [facility] Eosinophil percentageOrdered By: Guero Baker on 01-25-2025 Eosinophils/100 WBC (Bld) 2.8 % 0-5 [facility] Erythrocyte distribution wid th ratioOrdered By: Guero Baker on 01-25-2025 Erythrocyte distribution width (RBC) [Ratio] 13.2 % 11.6-14.6 [facility] Erythrocyte distribution wid th standard deviationOrdered By: Guero Baker on 01-25-2025 Erythrocyte distribution width (RBC) [Ratio] 43.5 fl 35.1-43.9 [facility] Erythrocyte morphology asses smentOrdered By: Guero Baker on 01-25-2025 RBC morphology finding Nom (Bld) NORM C+C NORMAL NORM C&C [facility] Glomerular filtration rate ( GFR) estimation/1.73 sq m using serum, plasma, or whole bOrdered By: Guero Baker on 01-25-2025 GFR/1.73 sq M.predicted among non-blacks MDRD (S/P/Bld) [Vol rate/Area] 107 mL/min/{1.73_m2} >60 [facility] Comment on above: mL/min/1.73m2 CKD-EP I Creatinine Equation (2020) Hematocrit Auto (Bld) [Volum e fraction]Ordered By: Guero Baker on 01-25-2025 Hematocrit (Bld) [Volume fraction] 44.9 % 40-54 [facility] Hemoglobin measurementOrdere d By: Guero Baker on 01-25-2025 Hemoglobin (Bld) [Mass/Vol] 15.4 g/dL 13.0-16.5 [facility] Immature granulocytes/100 WB C Auto (Bld)Ordered By: Guero Baker on 01-25-2025 Immature granulocytes/100 WBC (Bld) 0.300 % 0.0-0.9 [facility] Comment on above: IG% - Immature Granu locytes (promyelocytes, myelocytes and metamyelocytes) > 1% indicates that a LEFT SHIFT is Present. Laboratory - Chemistry and C hemistry - challengeOrdered By: Guero Baker on 01-25-2025 AST [Catalytic activity/Vol] 18 U/L <38 [facility] Lactic Acidon 01-25-2025 Lactate [Moles/Vol] 1.1 mmol/L Normal 0.0-2.0 [facility] Comment on above: Order Comment: Y Performed By: #### L 500.3400, L100.0100, L501.2450, L503.6005, L500.2500 ####[facility] [address] [place], [place], [address] Lactic acid measurementOrder ed By: Guero Baker on 01-25-2025 Lactate [Moles/Vol] 1.1 mmol/L 0.0-2.0 [facility] Lipaseon 01-25-2025 Lipase [Catalytic activity/Vol] 31 U/L Normal 13-75 [facility] Comment on above: Result Comment: Scout kline note: LIPASE revised reference range effective 22. New Lipase methodology. Expected to produce lower values than the previous assay method. NEW Reference Range: 13 - 75 U/L Performed By: #### L 500.3400, L100.0100, L501.2450, L503.6005, L500.2500 ####[facility] [address] [place], [address] Lipase measurementOrdered By : Guero Baker on 01-25-2025 Lipase [Catalytic activity/Vol] 31 U/L 13-75 [facility] Comment on above: Please note:LIPASE r evised reference range effective 22. New Lipase methodology. Expected to produce lower values than the previous assay method. NEW Reference Range: 13 - 75 U/L Liver Profileon 01-25-2025 Albumin [Mass/Vol] 4.3 g/dL Normal 3.5-5.[address] [facility] Comment on above: Performed By: #### L 500.3400, L100.0100, L501.2450, L503.6005, L500.2500 ####[facility] [address] [place], [address] ALK PHOS 40 U/L Normal 40-129 [facility] Comment on above: Performed By: #### L 500.3400, L100.0100, L501.2450, L503.6005, L500.2500 ####[facility] [address] [place], [address] ALT [Catalytic activity/Vol] 14 U/L Normal <=46 [facility] Comment on above: Performed By: #### L 500.3400, L100.0100, L501.2450, L503.6005, L500.2500 ####[facility] [address] [place], [address] AST [Catalytic activity/Vol] 18 U/L Normal <=37 [facility] Comment on above: Performed By: #### L 500.3400, L100.0100, L501.2450, L503.6005, L500.2500 ####[facility] [address] [place], [address] Bilirubin [Mass/Vol] 0.17 mg/dL Normal 0.00-1.30 [facility] Comment on above: Performed By: #### L 500.3400, L100.0100, L501.2450, L503.6005, L500.2500 ####[facility] [address] [place], [address] D BILI < 0.08 Normal 0.00-0.30 [facility] Comment on above: Performed By: #### L 500.3400, L100.0100, L501.2450, L503.6005, L500.2500 ####[facility] [address] [place], [place], [id number] Globulin (S) [Mass/Vol] 3.1 g/dL Normal 2.2-4.2 [facility] Comment on above: Performed By: #### L 500.3400, L100.0100, L501.2450, L503.6005, L500.2500 ####[facility] [address] [place], [place], [id number] T PROT 7.3 g/dL Normal 5.9-8.4 [facility] Comment on above: Performed By: #### L 500.3400, L100.0100, L501.2450, L503.6005, L500.2500 ####[facility] [address] [place], [address] MCV (mean corpuscular volume ) determinationOrdered By: Guero Baker on 01-25-2025 MCV (RBC) [Entitic vol] 91.1 fL 80-94 [facility] Mean corpuscular hemoglobin (MCH) determinationOrdered By: Guero Baker on 01-25-2025 MCH (RBC) [Entitic mass] 31.2 pg 27.0-32.0 [facility] Mean corpuscular hemoglobin concentration (MCHC) determinationOrdered By: Guero Baker on 01-25-2025 MCHC (RBC) [Mass/Vol] 34.3 g/dL 32-36 [facility] Mean platelet volume determi nationOrdered By: Guero Baker on 01-25-2025 Platelet mean volume (Bld) [Entitic vol] 9.8 fL 6.2-12.0 [facility] Monocyte percentageOrdered B y: Guero Baker on 01-25-2025 Monocytes/100 WBC (Bld) 5.1 % 0-10 [facility] Neutrophil percentageOrdered By: Guero Baker on 01-25-2025 Neutrophils/100 WBC (Bld) 54.3 % 47-70 [facility] Nucleated red blood cell per centageOrdered By: Guero Baker on 01-25-2025 Nucleated RBC/100 WBC (Bld) [Ratio] 0 % 0-5 [facility] Platelet countOrdered By: Maru Baker on 01-25-2025 Platelets (Bld) [#/Vol] 333 10*3/uL 150-450 [facility] Platelet estimateOrdered By: Guero Baker on 01-25-2025 Platelets LM Ql (Bld) ADEQUATE ADEQ [facility] Potassium measurement (mass/ volume)Ordered By: Guero Baker on 01-25-2025 Potassium (Unsp spec) [Mass/Vol] 4.2 mmol/L 3.3-5.1 [facility] RBC Auto (Bld) [#/Vol]Ordere d By: Guero Baker on 01-25-2025 RBC (Bld) [#/Vol] 4.93 10*6/uL 4.6-6.2 [facility] Serum creatinine measurement (mass/volume)Ordered By: Guero Baker on 01-25-2025 Creatinine [Mass/Vol] 0.88 mg/dL 0.70-1.20 [facility] Serum globulin measurementOr dered By: Guero Baker on 01-25-2025 Globulin (S) [Mass/Vol] 3.1 g/dL 2.2-4.2 [facility] Serum glucose measurement (m ass/volume)Ordered By: Guero Baker on 01-25-2025 Glucose [Mass/Vol] 90 mg/dL 70-[address] [facility] Serum or plasma alanine carrera otransferase (ALT) measurementOrdered By: Guero Baker on 01-25-2025 ALT [Catalytic activity/Vol] 14 U/L <47 [facility] Serum or plasma albumin za urement (mass/volume)Ordered By: Guero Baker on 01-25-2025 Albumin [Mass/Vol] 4.3 g/dL 3.5-5.[address] [facility] Serum or plasma alkaline carmen sphatase measurementOrdered By: Guero Baker on 01-25-2025 ALP [Catalytic activity/Vol] 40 U/L 40-129 [facility] Serum or plasma calcium za urement (mass/volume)Ordered By: Guero Baker on 01-25-2025 Calcium [Mass/Vol] 9.6 mg/dL 7.6-11.[address] [facility] Serum or plasma urea nitroge n measurement (mass/volume)Ordered By: Guero Baker on 01-25-2025 Urea nitrogen [Mass/Vol] 10 mg/dL 4-19 [facility] Sodium levelOrdered By: Scott Baker on 01-25-2025 Sodium [Moles/Vol] 139 mmol/L 133-[address] [facility] Total proteinOrdered By: Yovani Baker on 01-25-2025 Protein [Mass/Vol] 7.3 g/dL 5.9-8.[address] 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 Reading Location: [place] [address] CC: ERIC Starkey; Dr. Justin Cordero MD Radar Systems Engineer: Signed Normal [facility] Absolute lymphocyte countOrd ered By: Justin Cordero on 12-29-2024 Lymphocytes Auto (Unsp spec) [#/Vol] 3.55 10*3/uL 0.83-4.51 [facility] Absolute neutrophil countOrd ered By: Justin Cordero on 12-29-2024 Neutrophils (Bld) [#/Vol] 7.2 10*3/uL 2.0-7.7 [facility] Anion gap in Serum or Plasma Ordered By: Justin Cordero on 12-29-2024 Anion gap [Moles/Vol] 12 mmol/L 5-15 [facility] Automated lymphocyte count a s percentage of total leukocytesOrdered By: Justin Cordero on 12-29-2024 Lymphocytes/100 WBC Auto (Unsp spec) 30.4 % 19-41 [facility] BUN/creatinine ratioOrdered By: Justin Cordero on 12-29-2024 Urea nitrogen/Creatinine [Mass ratio] 7.7 mg/mg Low 10-20 [facility] Basophil percentageOrdered B y: Justin Cordero on 12-29-2024 Basophils/100 WBC (Bld) 0.6 % 0-1 [facility] Bilirubin, totalOrdered By: Justin Cordero on 12-29-2024 Bilirubin [Mass/Vol] 0.19 mg/dL 0.00-1.30 [facility] CBC W/Diff, Automatedon 12-14-2024 Absolute Lymph 3.55 X10 3/uL Normal 0.83-4.51 [facility] Comment on above: Performed By: #### L 500.4050, L100.0100, L501.2450 ####[facility] [address] [place], [address] Absolute Neut 7.2 X10 3/uL Normal 2.0-7.7 [facility] Comment on above: Performed By: #### L 500.4050, L100.0100, L501.2450 ####[facility] [address] [place], [address] Basophils/100 WBC (Bld) 0.6 % Normal 0-1 [facility] Comment on above: Performed By: #### L 500.4050, L100.0100, L501.2450 ####[facility] [address] [place], [address] Eosinophils/100 WBC (Bld) 1.7 % Normal 0-5 [facility] Comment on above: Performed By: #### L 500.4050, L100.0100, L501.2450 ####[facility] [address] [place], [address] Erythrocyte distribution width (RBC) [Ratio] 12.4 % Normal 11.6-14.6 [facility] Comment on above: Performed By: #### L 500.4050, L100.0100, L501.2450 ####[facility] [address] [place], [address] Hematocrit (Bld) [Volume fraction] 43.2 % Normal 40-54 [facility] Comment on above: Performed By: #### L 500.4050, L100.0100, L501.2450 ####[facility] [address] [place], [address] Hemoglobin (Bld) [Mass/Vol] 15.0 g/dL Normal 13.0-16.5 [facility] Comment on above: Performed By: #### L 500.4050, L100.0100, L501.2450 ####[facility] [address] [place], [address] IG% 0.300 Normal 0.0-0.9 [facility] Comment on above: Result Comment: IG% - Immature Granulocytes (promyelocytes, myelocytes and metamyelocytes) > 1% indicates that a LEFT SHIFT is Present. Performed By: #### L 500.4050, L100.0100, L501.2450 ####[facility] [address] [place], [address] Lymphocytes/100 WBC (Bld) 30.4 % Normal 19-41 [facility] Comment on above: Performed By: #### L 500.4050, L100.0100, L501.2450 ####[facility] [address] [place], [address] MCH (RBC) [Entitic mass] 30.7 pg Normal 27.0-32.0 [facility] Comment on above: Performed By: #### L 500.4050, L100.0100, L501.2450 ####[facility] [address] [place], [address] MCHC (RBC) [Mass/Vol] 34.7 g/dL Normal 32-36 [facility] Comment on above: Performed By: #### L 500.4050, L100.0100, L501.2450 ####[facility] [address] [place], [address] MCV (RBC) [Entitic vol] 88.5 fL Normal 80-94 [facility] Comment on above: Performed By: #### L 500.4050, L100.0100, L501.2450 ####[facility] [address] [place], [address] Monocytes/100 WBC (Bld) 5.1 % Normal 0-10 [facility] Comment on above: Performed By: #### L 500.4050, L100.0100, L501.2450 ####[facility] [address] [place], [address] Neutrophils/100 WBC (Bld) 61.9 % Normal 47-70 [facility] Comment on above: Performed By: #### L 500.4050, L100.0100, L501.2450 ####[facility] [address] [place], [address] Nucleated RBC (Bld) [#/Vol] 0 10*3/uL Normal 0-5 [facility] Comment on above: Performed By: #### L 500.4050, L100.0100, L501.2450 ####[facility] [address] [place], [address] Platelet mean volume (Bld) [Entitic vol] 9.5 fL Normal 6.2-12.0 [facility] Comment on above: Performed By: #### L 500.4050, L100.0100, L501.2450 ####[facility] [address] [place], [address] Platelets (Bld) [#/Vol] 295 10*3/uL Normal 150-450 [facility] Comment on above: Performed By: #### L 500.4050, L100.0100, L501.2450 ####[facility] [address] [place], [address] RBC (Bld) [#/Vol] 4.88 10*6/uL Normal 4.6-6.2 [facility] Comment on above: Performed By: #### L 500.4050, L100.0100, L501.2450 ####[facility] [address] [place], [address] RDW SD 40.5 fl Normal 35.1-43.9 [facility] Comment on above: Performed By: #### L 500.4050, L100.0100, L501.2450 ####[facility] [address] [place], [address] WBC (Bld) [#/Vol] 11.7 10*3/uL High 4.4-11.0 [facility] Comment on above: Performed By: #### L 500.4050, L100.0100, L501.2450 ####[facility] [address] [place], [address] Carbon dioxide, total [Moles /volume] in Central venous bloodOrdered By: Justin Cordero on 12-29-2024 CO2 [Moles/Vol] 21.1 mmol/L 21.0-32.0 [facility] Chloride assayOrdered By: Germán Cordero on 12-29-2024 Chloride [Moles/Vol] 103 mmol/L 98-108 [facility] Comprehensive Metabolic Prof ilon 12-29-2024 Albumin [Mass/Vol] 3.8 g/dL Normal 3.5-5.[address] [facility] Comment on above: Performed By: #### L 500.4050, L100.0100, L501.2450 ####[facility] [address] [place], [address] ALK PHOS 39 U/L Low 40-129 [facility] Comment on above: Performed By: #### L 500.4050, L100.0100, L501.2450 ####[facility] [address] [place], [address] ALT [Catalytic activity/Vol] 10 U/L Normal <=46 [facility] Comment on above: Performed By: #### L 500.4050, L100.0100, L501.2450 ####[facility] [address] [place], [address] AST [Catalytic activity/Vol] 21 U/L Normal <=37 [facility] Comment on above: Result Comment: Hemo lysis present, Results??could be affected. ?? Performed By: #### L 500.4050, L100.0100, L501.2450 ####[facility] [address] [place], [address] Bilirubin [Mass/Vol] 0.19 mg/dL Normal 0.00-1.30 [facility] Comment on above: Performed By: #### L 500.4050, L100.0100, L501.2450 ####[facility] [address] [place], [address] BUN/CRE 7.7 RATIO Low 10-20 [facility] Comment on above: Performed By: #### L 500.4050, L100.0100, L501.2450 ####[facility] [address] [place], [address] Calcium [Mass/Vol] 9.1 mg/dL Normal 7.6-11.[address] [facility] Comment on above: Performed By: #### L 500.4050, L100.0100, L501.2450 ####[facility] [address] [place], [address] Chloride [Moles/Vol] 103 mmol/L Normal 98-108 [facility] Comment on above: Performed By: #### L 500.4050, L100.0100, L501.2450 ####[facility] [address] [place], [address] CO2 [Moles/Vol] 21.1 mmol/L Normal 21.0-32.0 [facility] Comment on above: Performed By: #### L 500.4050, L100.0100, L501.2450 ####[facility] [address] [place], [address] Creatinine [Mass/Vol] 0.79 mg/dL Normal 0.70-1.20 [facility] Comment on above: Performed By: #### L 500.4050, L100.0100, L501.2450 ####[facility] [address] [place], [address] GAP 12 Normal 5-15 [facility] Comment on above: Performed By: #### L 500.4050, L100.0100, L501.2450 ####[facility] [address] [place], [address] GFR/1.73 sq M.predicted among non-blacks MDRD (S/P/Bld) [Vol rate/Area] 112 mL/min/{1.73_m2} Normal >60 [facility] Comment on above: Result Comment: mL/m in/1.73m2 CKD-EPI Creatinine Equation (2020) Performed By: #### L 500.4050, L100.0100, L501.2450 ####[facility] [address] [place], [address] Glucose [Mass/Vol] 100 mg/dL High 70-[address] [facility] Comment on above: Performed By: #### L 500.4050, L100.0100, L501.2450 ####[facility] [address] [place], [address] Potassium [Moles/Vol] 4.3 mmol/L Normal 3.3-5.1 [facility] Comment on above: Result Comment: Hemo lysis present, Results??could be affected. ?? Performed By: #### L 500.4050, L100.0100, L501.2450 ####[facility] [address] [place], [address] Sodium [Moles/Vol] 136 mmol/L Normal 133-[address] [facility] Comment on above: Performed By: #### L 500.4050, L100.0100, L501.2450 ####[facility] [address] [place], [address] T PROT 6.8 g/dL Normal 5.9-8.4 [facility] Comment on above: Performed By: #### L 500.4050, L100.0100, L501.2450 ####[facility] [address] [place], [address] Urea nitrogen [Mass/Vol] 6 mg/dL Normal 4-19 [facility] Comment on above: Performed By: #### L 500.4050, L100.0100, L501.2450 ####[facility] [address] [place], [address] Emergency Department Summary on 12-29-2024 Emergency Department Summary [facility] Medical Records Department [address] [place] [address] Emergency Department Summary 12/29/24 MR#: [id number] Acct: [id number] Name: PATRICK KOROMA Rep #: [id number] : 1980 44 From: Justin Cordero MD [...] did his other hernia repair surgeries in [place] he was told by him he could do it. He referred him to a surgeon in [place] at and they also told him they were not able to help him. Patient denies any fever. No dysuria. Denies any nausea, vomiting or diarrhea. No back pain. Prior similar symptoms: Yes Recent [facility] Medical History Seroma after procedure [...] 86 R (more content not included)... Normal [facility] Eosinophil percentageOrdered By: Justin Cordero on 12-29-2024 Eosinophils/100 WBC (Bld) 1.7 % 0-5 [facility] Erythrocyte distribution wid th ratioOrdered By: Justin Cordero on 12-29-2024 Erythrocyte distribution width (RBC) [Ratio] 12.4 % 11.6-14.6 [facility] Erythrocyte distribution wid th standard deviationOrdered By: Justin Cordero on 12-29-2024 Erythrocyte distribution width (RBC) [Ratio] 40.5 fl 35.1-43.9 [facility] Glomerular filtration rate ( GFR) estimation/1.73 sq m using serum, plasma, or whole bOrdered By: Justin Cordero on 12-29-2024 GFR/1.73 sq M.predicted among non-blacks MDRD (S/P/Bld) [Vol rate/Area] 112 mL/min/{1.73_m2} >60 [facility] Comment on above: mL/min/1.73m2 CKD-EP I Creatinine Equation (2020) Hematocrit Auto (Bld) [Volum e fraction]Ordered By: Justin Cordero on 12-29-2024 Hematocrit (Bld) [Volume fraction] 43.2 % 40-54 [facility] Hemoglobin measurementOrdere d By: Justin Cordero on 12-29-2024 Hemoglobin (Bld) [Mass/Vol] 15.0 g/dL 13.0-16.5 [facility] Immature granulocytes/100 WB C Auto (Bld)Ordered By: Justin Cordero on 12-29-2024 Immature granulocytes/100 WBC (Bld) 0.300 % 0.0-0.9 [facility] Comment on above: IG% - Immature Granu locytes (promyelocytes, myelocytes and metamyelocytes) > 1% indicates that a LEFT SHIFT is Present. Laboratory - Chemistry and C hemistry - challengeOrdered By: Justin Cordero on 12-29-2024 AST [Catalytic activity/Vol] 21 U/L <38 [facility] Comment on above: Hemolysis present, R esults could be affected. Lipaseon 12-29-2024 Lipase [Catalytic activity/Vol] 28 U/L Normal 13-75 [facility] Comment on above: Result Comment: Scout kline note: LIPASE revised reference range effective 22. New Lipase methodology. Expected to produce lower values than the previous assay method. NEW Reference Range: 13 - 75 U/L Performed By: #### L 500.4050, L100.0100, L501.2450 ####[facility] [address] [place], [address] Lipase measurementOrdered By : Justin Cordero on 12-29-2024 Lipase [Catalytic activity/Vol] 28 U/L 13-75 [facility] Comment on above: Please note:LIPASE r evised reference range effective 22. New Lipase methodology. Expected to produce lower values than the previous assay method. NEW Reference Range: 13 - 75 U/L MCV (mean corpuscular volume ) determinationOrdered By: Justin Cordero on 12-29-2024 MCV (RBC) [Entitic vol] 88.5 fL 80-94 [facility] Mean corpuscular hemoglobin (MCH) determinationOrdered By: Justin Cordero on 12-29-2024 MCH (RBC) [Entitic mass] 30.7 pg 27.0-32.0 [facility] Mean corpuscular hemoglobin concentration (MCHC) determinationOrdered By: Justin Cordero on 12-29-2024 MCHC (RBC) [Mass/Vol] 34.7 g/dL 32-36 [facility] Mean platelet volume determi nationOrdered By: Justin Cordero on 12-29-2024 Platelet mean volume (Bld) [Entitic vol] 9.5 fL 6.2-12.0 [facility] Monocyte percentageOrdered B y: Justin Cordero on 12-29-2024 Monocytes/100 WBC (Bld) 5.1 % 0-10 [facility] Neutrophil percentageOrdered By: Justin Cordero on 12-29-2024 Neutrophils/100 WBC (Bld) 61.9 % 47-70 [facility] Nucleated red blood cell per centageOrdered By: Justin Cordero on 12-29-2024 Nucleated RBC/100 WBC (Bld) [Ratio] 0 % 0-5 [facility] Platelet countOrdered By: Germán Cordero on 12-29-2024 Platelets (Bld) [#/Vol] 295 10*3/uL 150-450 [facility] Potassium measurement (mass/ volume)Ordered By: Justin Cordero on 12-29-2024 Potassium (Unsp spec) [Mass/Vol] 4.3 mmol/L 3.3-5.1 [facility] Comment on above: Hemolysis present, R esults could be affected. RBC Auto (Bld) [#/Vol]Ordere d By: Justin Cordero on 12-29-2024 RBC (Bld) [#/Vol] 4.88 10*6/uL 4.6-6.2 [facility] Serum creatinine measurement (mass/volume)Ordered By: Justin Cordero on 12-29-2024 Creatinine [Mass/Vol] 0.79 mg/dL 0.70-1.20 [facility] Serum globulin measurementOr dered By: Justin Cordero on 12-29-2024 Globulin (S) [Mass/Vol] 3.0 g/dL 2.2-4.2 [facility] Serum glucose measurement (m ass/volume)Ordered By: Justin Cordero on 12-29-2024 Glucose [Mass/Vol] 100 mg/dL High 70-[address] [facility] Serum or plasma alanine carrera otransferase (ALT) measurementOrdered By: Justin Cordero on 12-29-2024 ALT [Catalytic activity/Vol] 10 U/L <47 [facility] Serum or plasma albumin za urement (mass/volume)Ordered By: Justin Cordero on 12-29-2024 Albumin [Mass/Vol] 3.8 g/dL 3.5-5.[address] [facility] Serum or plasma albumin/glob ulin mass ratioOrdered By: Justin Cordero on 12-29-2024 Albumin/Globulin [Mass ratio] 1.3 {ratio} 0.9-2.4 [facility] Serum or plasma alkaline carmen sphatase measurementOrdered By: Justin Cordero on 12-29-2024 ALP [Catalytic activity/Vol] 39 U/L Low 40-129 [facility] Serum or plasma calcium za urement (mass/volume)Ordered By: Justin Cordero on 12-29-2024 Calcium [Mass/Vol] 9.1 mg/dL 7.6-11.[address] [facility] Serum or plasma urea nitroge n measurement (mass/volume)Ordered By: Justin Cordero on 12-29-2024 Urea nitrogen [Mass/Vol] 6 mg/dL 4-19 [facility] Sodium levelOrdered By: Justin Cordero on 12-29-2024 Sodium [Moles/Vol] 136 mmol/L 133-[address] [facility] Total proteinOrdered By: Van Cordero on 12-29-2024 Protein [Mass/Vol] 6.8 g/dL 5.9-8.[address] [facility] White blood cell (WBC) count Ordered By: Justin Cordero on 12-29-2024 WBC (Bld) [#/Vol] 11.7 10*3/uL High 4.4-11.0 [facility] Abdomen/Pelvis W IV Cont ONL Yon 12-09-2024 Abdomen/Pelvis W IV Cont ONLY [facility] Imaging Services [address] [place], [place] [id number] Abdomen/Pelvis W IV Cont ONLY MR#: [id number] Acct: [id number] Name: PATRICK KOROMA Rep #: [id number] : 1980 M 44 From: Davis mayfield MD PCP: ERIC Anaya Status: [facility] ER Study: Abdomen/Pelvis W IV Cont ONLY Date of Exam: Exam# [id number] Ordering Dr: Guero Baker DO PROCEDURE: ABDOMEN/PELVIS [...] of the stomach, probably gastritis. [facility] CC: ERIC Starkey; Guero Baker DO Radar Systems Engineer: Signed Normal [facility] Absolute lymphocyte countOrd ered By: Guero Baker on 12-09-2024 Lymphocytes Auto (Unsp spec) [#/Vol] 3.41 10*3/uL 0.83-4.51 [facility] Absolute neutrophil countOrd ered By: Guero Baker on 12-09-2024 Neutrophils (Bld) [#/Vol] 6.8 10*3/uL 2.0-7.7 [facility] Anion gap in Serum or Plasma Ordered By: Guero Baker on 12-09-2024 Anion gap [Moles/Vol] 11 mmol/L 5-15 [facility] Automated lymphocyte count a s percentage of total leukocytesOrdered By: Guero Baker on 12-09-2024 Lymphocytes/100 WBC Auto (Unsp spec) 30.2 % 19-41 [facility] BUN/creatinine ratioOrdered By: Guero Baker on 12-09-2024 Urea nitrogen/Creatinine [Mass ratio] 12.9 mg/mg 10-20 [facility] Basic Metabolic Profile (BMP )on 12-09-2024 GFR/1.73 sq M.predicted among non-blacks MDRD (S/P/Bld) [Vol rate/Area] 108 mL/min/{1.73_m2} Normal >60 [facility] Comment on above: Performed By: #### L 500.3400, L501.2450, L500.2500 ####[facility] [address] [place], [address] Basophil percentageOrdered B y: Guero Baker on 12-09-2024 Basophils/100 WBC (Bld) 0.8 % 0-1 [facility] Bilirubin directOrdered By: Guero Baker on 12-09-2024 Bilirubin.direct [Mass/Vol] mg/dL 0.00-0.30 [facility] Comment on above: Hemolysis present, R esults could be affected. Bilirubin, totalOrdered By: Guero Baker on 12-09-2024 Bilirubin [Mass/Vol] mg/dL 0.00-1.30 [facility] CBC W/Diff, Automatedon 11-15 Absolute Lymph 3.41 X10 3/uL Normal 0.83-4.51 [facility] Comment on above: Performed By: #### L 503.6005, L100.0100 ####[facility] [address] [place], [address] Absolute Neut 6.8 X10 3/uL Normal 2.0-7.7 [facility] Comment on above: Performed By: #### L 503.6005, L100.0100 ####[facility] [address] [place], [address] Basophils/100 WBC (Bld) 0.8 % Normal 0-1 [facility] Comment on above: Performed By: #### L 503.6005, L100.0100 ####[facility] [address] [place], [address] Eosinophils/100 WBC (Bld) 2.0 % Normal 0-5 [facility] Comment on above: Performed By: #### L 503.6005, L100.0100 ####[facility] [address] [place], [address] Erythrocyte distribution width (RBC) [Ratio] 12.4 % Normal 11.6-14.6 [facility] Comment on above: Performed By: #### L 503.6005, L100.0100 ####[facility] [address] [place], [address] Hematocrit (Bld) [Volume fraction] 44.7 % Normal 40-54 [facility] Comment on above: Performed By: #### L 503.6005, L100.0100 ####[facility] [address] [place], [address] Hemoglobin (Bld) [Mass/Vol] 15.2 g/dL Normal 13.0-16.5 [facility] Comment on above: Performed By: #### L 503.6005, L100.0100 ####[facility] [address] [place], [address] IG% 0.400 Normal 0.0-0.9 [facility] Comment on above: Result Comment: IG% - Immature Granulocytes (promyelocytes, myelocytes and metamyelocytes) > 1% indicates that a LEFT SHIFT is Present. Performed By: #### L 503.6005, L100.0100 ####[facility] [address] [place], [address] Lymphocytes/100 WBC (Bld) 30.2 % Normal 19-41 [facility] Comment on above: Performed By: #### L 503.6005, L100.0100 ####[facility] [address] [place], [address] MCH (RBC) [Entitic mass] 31.1 pg Normal 27.0-32.0 [facility] Comment on above: Performed By: #### L 503.6005, L100.0100 ####[facility] [address] [place], [address] MCHC (RBC) [Mass/Vol] 34.0 g/dL Normal 32-36 [facility] Comment on above: Performed By: #### L 503.6005, L100.0100 ####[facility] [address] [place], [address] MCV (RBC) [Entitic vol] 91.4 fL Normal 80-94 [facility] Comment on above: Performed By: #### L 503.6005, L100.0100 ####[facility] [address] [place], [address] Monocytes/100 WBC (Bld) 6.0 % Normal 0-10 [facility] Comment on above: Performed By: #### L 503.6005, L100.0100 ####[facility] [address] [place], [address] Neutrophils/100 WBC (Bld) 60.6 % Normal 47-70 [facility] Comment on above: Performed By: #### L 503.6005, L100.0100 ####[facility] [address] [place], [address] Nucleated RBC (Bld) [#/Vol] 0 10*3/uL Normal 0-5 [facility] Comment on above: Performed By: #### L 503.6005, L100.0100 ####[facility] [address] [place], [address] Platelet mean volume (Bld) [Entitic vol] 9.4 fL Normal 6.2-12.0 [facility] Comment on above: Performed By: #### L 503.6005, L100.0100 ####[facility] [address] [place], [address] Platelets (Bld) [#/Vol] 295 10*3/uL Normal 150-450 [facility] Comment on above: Performed By: #### L 503.6005, L100.0100 ####[facility] [address] [place], [address] RBC (Bld) [#/Vol] 4.89 10*6/uL Normal 4.6-6.2 [facility] Comment on above: Performed By: #### L 503.6005, L100.0100 ####[facility] [address] [place], [address] RDW SD 41.4 fl Normal 35.1-43.9 [facility] Comment on above: Performed By: #### L 503.6005, L100.0100 ####[facility] [address] [place], [address] WBC (Bld) [#/Vol] 11.3 10*3/uL High 4.4-11.0 [facility] Comment on above: Performed By: #### L 503.6005, L100.0100 ####[facility] [address] [place], [address] Carbon dioxide, total [Moles /volume] in Central venous bloodOrdered By: Guero Baker on 12-09-2024 CO2 [Moles/Vol] 23.5 mmol/L 21.0-32.0 [facility] Chloride assayOrdered By: Maru Baker on 12-09-2024 Chloride [Moles/Vol] 106 mmol/L 98-108 [facility] Emergency Department Summary on 12-09-2024 Emergency Department Summary [facility] Medical Records Department [address] [place] [address] Emergency Department Summary 12/09/24 MR#: [id number] Acct: [id number] Name: PATRICK KOROMA Rep #: [id number] : 1980 44 From: Guero Baker DO [...] able to repaired by a specialist at [facility]. He denies any recent trauma but states that he has been having increasing pain in the mid abdomen which feels similar nature to his previous bouts of hernia complication and therefore comes in for evaluation [facility] Medical History Seroma after procedure Influenza [...] ER hyper (more content not included)... Normal [facility] Eosinophil percentageOrdered By: Guero Baker on 12-09-2024 Eosinophils/100 WBC (Bld) 2.0 % 0-5 [facility] Erythrocyte distribution wid th ratioOrdered By: Guero Baker on 12-09-2024 Erythrocyte distribution width (RBC) [Ratio] 12.4 % 11.6-14.6 [facility] Erythrocyte distribution wid th standard deviationOrdered By: Guero Baker on 12-09-2024 Erythrocyte distribution width (RBC) [Ratio] 41.4 fl 35.1-43.9 [facility] Glomerular filtration rate ( GFR) estimation/1.73 sq m using serum, plasma, or whole bOrdered By: Guero Baker on 12-09-2024 GFR/1.73 sq M.predicted among non-blacks MDRD (S/P/Bld) [Vol rate/Area] 108 mL/min/{1.73_m2} >60 [facility] Hematocrit Auto (Bld) [Volum e fraction]Ordered By: Guero Baker on 12-09-2024 Hematocrit (Bld) [Volume fraction] 44.7 % 40-54 [facility] Hemoglobin measurementOrdere d By: Guero Baker on 12-09-2024 Hemoglobin (Bld) [Mass/Vol] 15.2 g/dL 13.0-16.5 [facility] Immature granulocytes/100 WB C Auto (Bld)Ordered By: Guero Baker on 12-09-2024 Immature granulocytes/100 WBC (Bld) 0.400 % 0.0-0.9 [facility] Comment on above: IG% - Immature Granu locytes (promyelocytes, myelocytes and metamyelocytes) > 1% indicates that a LEFT SHIFT is Present. Laboratory - Chemistry and C hemistry - challengeOrdered By: Guero Baker on 12-09-2024 AST [Catalytic activity/Vol] 17 U/L <38 [facility] Comment on above: Hemolysis present, R esults could be affected. Lactic Acidon 12-09-2024 Lactate [Moles/Vol] 1.1 mmol/L Normal 0.0-2.0 [facility] Comment on above: Order Comment: Y Performed By: #### L 503.6005, L100.0100 ####[facility] [address] [place], [place], [address] Lactic acid measurementOrder ed By: Guero Baker on 12-09-2024 Lactate [Moles/Vol] 1.1 mmol/L 0.0-2.0 [facility] Lipaseon 12-09-2024 Lipase [Catalytic activity/Vol] 36 U/L Normal 13-75 [facility] Comment on above: Result Comment: Scout kline note: LIPASE revised reference range effective 22. New Lipase methodology. Expected to produce lower values than the previous assay method. NEW Reference Range: 13 - 75 U/L Performed By: #### L 500.3400, L501.2450, L500.2500 ####[facility] [address] [place], [address] Lipase measurementOrdered By : Guero Baker on 12-09-2024 Lipase [Catalytic activity/Vol] 36 U/L 13-75 [facility] Comment on above: Please note:LIPASE r evised reference range effective 22. New Lipase methodology. Expected to produce lower values than the previous assay method. NEW Reference Range: 13 - 75 U/L Liver Profileon 12-09-2024 Albumin [Mass/Vol] 3.7 g/dL Normal 3.5-5.[address] [facility] Comment on above: Performed By: #### L 500.3400, L501.2450, L500.2500 ####[facility] [address] [place], [address] ALK PHOS 42 U/L Normal 40-129 [facility] Comment on above: Performed By: #### L 500.3400, L501.2450, L500.2500 ####[facility] [address] [place], [address] ALT [Catalytic activity/Vol] 15 U/L Normal <=46 [facility] Comment on above: Performed By: #### L 500.3400, L501.2450, L500.2500 ####[facility] [address] [place], [address] AST [Catalytic activity/Vol] 17 U/L Normal <=37 [facility] Comment on above: Result Comment: Hemo lysis present, Results??could be affected. ?? Performed By: #### L 500.3400, L501.2450, L500.2500 ####[facility] [address] [place], [address] D BILI < 0.08 Normal 0.00-0.30 [facility] Comment on above: Result Comment: Hemo lysis present, Results??could be affected. ?? Performed By: #### L 500.3400, L501.2450, L500.2500 ####[facility] [address] [place], [address] Globulin (S) [Mass/Vol] 2.8 g/dL Normal 2.2-4.2 [facility] Comment on above: Performed By: #### L 500.3400, L501.2450, L500.2500 ####[facility] [address] [place], [address] T BILI < 0.15 Normal 0.00-1.30 [facility] Comment on above: Performed By: #### L 500.3400, L501.2450, L500.2500 ####[facility] [address] [place], [address] T PROT 6.5 g/dL Normal 5.9-8.4 [facility] Comment on above: Performed By: #### L 500.3400, L501.2450, L500.2500 ####[facility] [address] [place], [address] MCV (mean corpuscular volume ) determinationOrdered By: Guero Baker on 12-09-2024 MCV (RBC) [Entitic vol] 91.4 fL 80-94 [facility] Mean corpuscular hemoglobin (MCH) determinationOrdered By: Guero Baker on 12-09-2024 MCH (RBC) [Entitic mass] 31.1 pg 27.0-32.0 [facility] Mean corpuscular hemoglobin concentration (MCHC) determinationOrdered By: Guero Baker on 12-09-2024 MCHC (RBC) [Mass/Vol] 34.0 g/dL 32-36 [facility] Mean platelet volume determi nationOrdered By: Guero Baker on 12-09-2024 Platelet mean volume (Bld) [Entitic vol] 9.4 fL 6.2-12.0 [facility] Monocyte percentageOrdered B y: Guero Baker on 12-09-2024 Monocytes/100 WBC (Bld) 6.0 % 0-10 [facility] Neutrophil percentageOrdered By: Guero Baker on 12-09-2024 Neutrophils/100 WBC (Bld) 60.6 % 47-70 [facility] Nucleated red blood cell per centageOrdered By: Guero Baker on 12-09-2024 Nucleated RBC/100 WBC (Bld) [Ratio] 0 % 0-5 [facility] Platelet countOrdered By: Maru Baker on 12-09-2024 Platelets (Bld) [#/Vol] 295 10*3/uL 150-450 [facility] Potassium measurement (mass/ volume)Ordered By: Guero Baker on 12-09-2024 Potassium (Unsp spec) [Mass/Vol] 4.0 mmol/L 3.3-5.1 [facility] Comment on above: Hemolysis present, R esults could be affected. RBC Auto (Bld) [#/Vol]Ordere d By: Guero Baker on 12-09-2024 RBC (Bld) [#/Vol] 4.89 10*6/uL 4.6-6.2 [facility] Serum creatinine measurement (mass/volume)Ordered By: Guero Baker on 12-09-2024 Creatinine [Mass/Vol] 0.87 mg/dL 0.70-1.20 [facility] Serum globulin measurementOr dered By: Guero Baker on 12-09-2024 Globulin (S) [Mass/Vol] 2.8 g/dL 2.2-4.2 [facility] Serum glucose measurement (m ass/volume)Ordered By: Guero Baker on 12-09-2024 Glucose [Mass/Vol] 105 mg/dL High 70-[address] [facility] Serum or plasma alanine carrera otransferase (ALT) measurementOrdered By: Guero Baker on 12-09-2024 ALT [Catalytic activity/Vol] 15 U/L <47 [facility] Serum or plasma albumin az urement (mass/volume)Ordered By: Guero Baker on 12-09-2024 Albumin [Mass/Vol] 3.7 g/dL 3.5-5.[address] [facility] Serum or plasma alkaline carmen sphatase measurementOrdered By: Guero Baker on 12-09-2024 ALP [Catalytic activity/Vol] 42 U/L 40-129 [facility] Serum or plasma calcium za urement (mass/volume)Ordered By: Guero Baker on 12-09-2024 Calcium [Mass/Vol] 8.7 mg/dL 7.6-11.[address] [facility] Serum or plasma urea nitroge n measurement (mass/volume)Ordered By: Guero Baker on 12-09-2024 Urea nitrogen [Mass/Vol] 11 mg/dL 4-19 [facility] Sodium levelOrdered By: Scott Baker on 12-09-2024 Sodium [Moles/Vol] 140 mmol/L 133-[address] [facility] Total proteinOrdered By: Yovani Baker on 12-09-2024 Protein [Mass/Vol] 6.5 g/dL 5.9-8.[address] [facility] White blood cell (WBC) count Ordered By: Guero Baker on 12-09-2024 WBC (Bld) [#/Vol] 11.3 10*3/uL High 4.4-11.0 [facility] Emergency Department Summary on 12-07-2024 Emergency Department Summary [facility] Medical Records Department [address] [place] [address] Emergency Department Summary 12/07/24 MR#: [id number] Acct: [id number] Name: PATRICK KOROMA Rep #: [id number] : 1980 44 From: Guevara Choi MD PCP: ERIC Anaya Status:REG ER Location: ED HPI History of Present Illness Chief Complaint: Upper Extremity Injury Informant: patient Narrative Narrative: During tear down of a car level traction at the [facility], patient states he smashed his right thumb between 2 metal poles on accident. Oqkjc-eelw-wybstdqp. [facility] Medical History Seroma after procedure Influenza [...] abnormality of the right hand. Reading Location: [facility] Discharge Plan Triage Chief Complaint: Upper Extremity Injury ED Provider: Guevara Choi Dx/Rx/DC Orders Clinical Impression: Contusion of right thumb with damage to nail, initial encounter Instructions: ED Finger or Toe Contusion Prescriptions: No Action NK Primary Care Provider: Viola Starkey NP Referrals: Viola Starkey NP, BIODIESEL TECHNOLOGY MANAGER-C [Primary Care Provider] - 10-14 Days if not better Print La (more content not included)... Normal [facility] Hand Min 3 Viewson 5 Hand Min 3 Views [facility] Imaging Services [address] [place], [place] [address] Hand Min 3 Views MR#: [id number] Acct: [id number] Name: PATRICK KOROMA Rep #: [id number] : 1980 M 44 From: Stephan Ba MD PCP: ERIC Anaya Status: PRE ER Study: Hand Min 3 Views Date of Exam: 12/06/24 Exam# [id number] Ordering Dr: Guevara Choi MD PROCEDURE: HAND MIN 3 VIEWS 12/06/2024 REASON FOR EXAM: INJURY TECHNIQUE: HAND MIN 3 VIEWS COMPARISON: None FINDINGS: No fracture or traumatic malalignment. Joint spaces are predominantly maintained. Bone mineral density is subjectively normal. The soft tissues are unremarkable. RAD/Hand Min 3 Views IMPRESSION: No acute osseous abnormality of the right hand. Reading Location: [id number] CC: BIODIESEL TECHNOLOGY MANAGER-Marielos Starkey; Dr. Guevara Choi MD Radar Systems Engineer: Signed Normal [facility] Clavicleon 09-19-2024 Clavicle [facility] Imaging Services [address] [place] [address] Clavicle MR#: [id number] Acct: [id number] Name: PATRICK KOROMA Rep #: [id number] : 1980 M 44 From: Kalli Tena DO PCP: ERIC Anaya Status: REG ER Study: Clavicle Date of Exam: 09/19/24 Exam# [id number] Ordering Dr: Brian Maldonado MD PROCEDURE: CLAVICLE 09/19/2024 REASON FOR EXAM: TRAUMA TECHNIQUE: Two views of the right clavicle were obtained COMPARISON: None FINDINGS: Bones: No acute fracture. Joints: Joint spaces are preserved. Soft tissues: No soft tissue abnormality. RAD/Clavicle IMPRESSION: NO EVIDENCE OF CLAVICLE FRACTURE [facility] CC: ERIC Starkey; Dr. Brian Maldonado MD Radar Systems Engineer: Signed Normal [facility] Emergency Department Summary on 09-19-2024 Emergency Department Summary [facility] Medical Records Department [address] [place] [address] Emergency Department Summary 09/19/24 MR#: [id number] Acct: [id number] Name: PATRICK KOROMA Rep #: [id number] : 1980 44 From: Brian Maldonado MD PCP: ERIC Anaya Status:REG ER Location: ED HPI History of Present Illness Chief Complaint: Upper Extremity Injury Narrative Narrative: 44-year-old male, azsdu-cjql-ujlqiqzt, presents with injury to his right shoulder [...] raise his right arm. [facility]ies other injuries[facility] Medical History Seroma after procedure [...] clavicle and shoulder pain worse with movement. Vdwei-wqja-scvtkypo. Denies hitting of his head or loss [...] AC joint separation. Patient was given 1 Gilbert tablet here for analgesia and x-rays obtained [...] not improving. I feel he can take xhkq-fcx-knbatos medications for analgesia. Return instructions to the emergency department were reviewed. Disposition is discharged home in stable condition. History Recor (more content not included)... Normal [facility] Shoulder min 2 Viewson 09-19 Shoulder min 2 Views [facility] Imaging Services [address] [place], [place] [address] Shoulder min 2 Views MR#: [id number] Acct: [id number] Name: SANTANAZARIOPATRICK FERMÍN Rep #: [id number] : 1980 M 44 From: Kalli Tena DO PCP: ERIC Anaya Status: REG ER Study: Shoulder min 2 Views Date of Exam: 09/19/24 Exam# [id number] Ordering Dr: Brian Maldonado MD PROCEDURE: SHOULDER MIN 2 VIEWS 09/19/2024 REASON FOR EXAM: TRAUMA TECHNIQUE: 4 view(s) of the right shoulder COMPARISON: None FINDINGS: Bones: No acute fracture. Joints: Normal alignment of the acromioclavicular and glenohumeral joints. Soft tissues: Soft tissues are unremarkable. Other: RAD/Shoulder min 2 Views IMPRESSION: NO ACUTE FRACTURE OR DISLOCATION. Reading Location: [facility] CC: BIODIESEL TECHNOLOGY MANAGER-C Viola Starkey; Dr. Brian Maldonado MD Radar Systems Engineer: Signed Normal [facility] .Auto Diffon 09-08-2024 Basophil, Absolute 0.1 10 3/mcL Normal 0.0-0.2 [facility] Comment on above: Performed By: #### C BC, ADIFF, ANEU, CMP, GFR, LIPID #### [address] [address] Basophils/100 WBC (Bld) 1.0 % Normal 0.0-2.5 [facility] Comment on above: Performed By: #### C BC, ADIFF, ANEU, CMP, GFR, LIPID #### [address] [address] Eosinophil, Absolute 0.1 10 3/mcL Normal 0.0-0.7 [facility] Comment on above: Performed By: #### C BC, ADIFF, ANEU, CMP, GFR, LIPID #### [address] [address] Eosinophils/100 WBC (Bld) 0.8 % Normal 0.0-7.0 [facility] Comment on above: Performed By: #### C BC, ADIFF, ANEU, CMP, GFR, LIPID #### [address] [address] Lymphocyte, Absolute 2.2 10 3/mcL Normal 0.9-4.3 [facility] Comment on above: Performed By: #### C BC, ADIFF, ANEU, CMP, GFR, LIPID #### [address] [address] Lymphocytes/100 WBC (Bld) 17.9 % Low 20.0-40.0 [facility] Comment on above: Performed By: #### C BC, ADIFF, ANEU, CMP, GFR, LIPID #### [address] [address] Monocyte, Absolute 0.8 10 3/mcL Normal 0.1-1.4 [facility] Comment on above: Performed By: #### C BC, ADIFF, ANEU, CMP, GFR, LIPID #### [address] [address] Monocytes/100 WBC (Bld) 6.5 % Normal 2.0-13.0 [facility] Comment on above: Performed By: #### C BC, ADIFF, ANEU, CMP, GFR, LIPID #### [address] [address] Neutrophils/100 WBC (Bld) 73.8 % Normal 50.0-75.0 [facility] Comment on above: Performed By: #### C BC, ADIFF, ANEU, CMP, GFR, LIPID #### [address] [address] .GFRon 09-08-2024 Estimated Glomerular Filtration Rate 99 ml/min/1.73sqm Normal [facility] Comment on above: Result [...] BC, ADIFF, ANEU, CMP, GFR, LIPID #### [address] [address] .NEUABSon 09-08-2024 Neutrophil, Absolute 9.2 10 3/mcL High 2.3-8.1 [facility] Comment on above: Performed By: #### C BC, ADIFF, ANEU, CMP, GFR, LIPID #### [place] [address] CBCon 09-08-2024 Erythrocyte distribution width (RBC) [Ratio] 13.3 % Normal 11.5-15.5 [facility] Comment on above: Performed By: #### C BC, ADIFF, ANEU, CMP, GFR, LIPID #### [place] [address] Hematocrit (Bld) [Volume fraction] 45.6 % Normal 40.0-52.0 [facility] Comment on above: Performed By: #### C BC, ADIFF, ANEU, CMP, GFR, LIPID #### [place] [address] Hgb 15.3 G/dL Normal 13.0-17.5 [facility] Comment on above: Performed By: #### C BC, ADIFF, ANEU, CMP, GFR, LIPID #### [place] [address] MCH (RBC) [Entitic mass] 31.0 pg Normal 27.0-33.0 [facility] Comment on above: Performed By: #### C BC, ADIFF, ANEU, CMP, GFR, LIPID #### [place] [address] MCHC 33.5 G/dL Normal 32.0-36.0 [facility] Comment on above: Performed By: #### C BC, ADIFF, ANEU, CMP, GFR, LIPID #### [address] [address] MCV (RBC) [Entitic vol] 92.3 fL Normal 81.0-100.0 [facility] Comment on above: Performed By: #### C BC, ADIFF, ANEU, CMP, GFR, LIPID #### [address] [address] Platelet 297 10 3/mcL Normal 150-450 [facility] Comment on above: Performed By: #### C BC, ADIFF, ANEU, CMP, GFR, LIPID #### [address] [address] Platelet mean volume (Bld) [Entitic vol] 8.0 fL Normal 6.4-10.5 [facility] Comment on above: Performed By: #### C BC, ADIFF, ANEU, CMP, GFR, LIPID #### [address] [address] RBC 4.94 10 6/mcL Normal 4.50-6.00 [facility] Comment on above: Performed By: #### C BC, ADIFF, ANEU, CMP, GFR, LIPID #### [address] [address] WBC 12.5 10 3/mcL High 4.5-10.8 [facility] Comment on above: Performed By: #### C BC, ADIFF, ANEU, CMP, GFR, LIPID #### [address] [address] CMPon 09-08-2024 Albumin Level 3.7 G/dL Normal 3.5-5.0 [facility] Comment on above: Performed By: #### C BC, ADIFF, ANEU, CMP, GFR, LIPID #### [address] [address] Albumin/Globulin [Mass ratio] 0.9 {ratio} Low 1.1-2.5 [facility] Comment on above: Performed By: #### C BC, ADIFF, ANEU, CMP, GFR, LIPID #### [address] [address] ALP [Catalytic activity/Vol] 51 U/L Normal 40-135 [facility] Comment on above: Performed By: #### C BC, ADIFF, ANEU, CMP, GFR, LIPID #### [address] [address] ALT [Catalytic activity/Vol] 17 U/L Normal 16-63 [facility] Comment on above: Performed By: #### C BC, ADIFF, ANEU, CMP, GFR, LIPID #### [address] [address] AST [Catalytic activity/Vol] 15 U/L Normal 10-40 [facility] Comment on above: Performed By: #### C BC, ADIFF, ANEU, CMP, GFR, LIPID #### [address] [address] Bili Total 0.2 mg/dL Normal 0.2-1.0 [facility] Comment on above: Result Comment: Use of this assay is not recommended for patients undergoing treatment with eltrombopag due to the potential for falsely elevated results. Performed By: #### C BC, ADIFF, ANEU, CMP, GFR, LIPID #### [place] [id number] BUN/Creatinine Ratio 11 ratio Normal 7-27 [facility] Comment on above: Performed By: #### C BC, ADIFF, ANEU, CMP, GFR, LIPID #### [address] [address] Calcium [Mass/Vol] 9.7 mg/dL Normal 8.4-10.2 [facility] Comment on above: Performed By: #### C BC, ADIFF, ANEU, CMP, GFR, LIPID #### [address] [address] Chloride [Moles/Vol] 99 mmol/L Normal 98-107 [facility] Comment on above: Performed By: #### C BC, ADIFF, ANEU, CMP, GFR, LIPID #### [address] [address] CO2 [Moles/Vol] 27 mmol/L Normal 22-29 [facility] Comment on above: Performed By: #### C BC, ADIFF, ANEU, CMP, GFR, LIPID #### [address] [address] Creatinine [Mass/Vol] 0.96 mg/dL Normal 0.70-1.30 [facility] Comment on above: Result Comment: Test ing performed on Siemens Dimension EXL analyzer using a modified kinetic Elyse technique. Performed By: #### C BC, ADIFF, ANEU, CMP, GFR, LIPID #### [address] [address] Electrolyte Balance 8.0 mEq/L Normal 4.0-15.0 [facility] Comment on above: Performed By: #### C BC, ADIFF, ANEU, CMP, GFR, LIPID #### [address] [address] Globulin 4.0 G/dL High 1.5-3.8 [facility] Comment on above: Performed By: #### C BC, ADIFF, ANEU, CMP, GFR, LIPID #### [address] [address] Glucose [Mass/Vol] 91 mg/dL Normal 70-105 [facility] Comment on above: Performed By: #### C BC, ADIFF, ANEU, CMP, GFR, LIPID #### [address] [address] Potassium [Moles/Vol] 4.4 mmol/L Normal 3.5-5.1 [facility] Comment on above: Performed By: #### C BC, ADIFF, ANEU, CMP, GFR, LIPID #### [address] [address] Sodium [Moles/Vol] 134 mmol/L Low 136-145 [facility] Comment on above: Performed By: #### C BC, ADIFF, ANEU, CMP, GFR, LIPID #### [address] [address] Total Protein 7.7 G/dL Normal 6.4-8.2 [facility] Comment on above: Performed By: #### C BC, ADIFF, ANEU, CMP, GFR, LIPID #### [address] [address] Urea nitrogen [Mass/Vol] 11 mg/dL Normal 7-18 [facility] Comment on above: Performed By: #### C BC, ADIFF, ANEU, CMP, GFR, LIPID #### [address] [address] LIPIDon 09-08-2024 Cholesterol [Mass/Vol] 177 mg/dL Normal 0-200 [facility] Comment on above: Result Comment: Chol esterol Reference Interval: Less than 200 Desirable 200-239 Borderline high risk 240 and above High risk Performed By: #### C BC, ADIFF, ANEU, CMP, GFR, LIPID #### [address] [address] Cholesterol in HDL [Mass/Vol] 44 mg/dL Normal 40-60 [facility] Comment on above: Performed By: #### C BC, ADIFF, ANEU, CMP, GFR, LIPID #### [address] [address] Cholesterol in LDL [Mass/Vol] 108 mg/dL Normal 0-130 [facility] Comment on above: Performed By: #### C BC, ADIFF, ANEU, CMP, GFR, LIPID #### [address] [address] Triglyceride [Mass/Vol] 125 mg/dL Normal 0-150 [facility] Comment on above: Result Comment: Trig lyceride Reference Interval: Less than 150 Normal 150-199 Borderline high risk 200-499 High risk 500 or higher Very high risk Performed By: #### C BC, ADIFF, ANEU, CMP, GFR, LIPID #### [address] [address] XR FOOT MINIMUM 3 VIEWS LEFT on [...] 09/08/2024 12:53:40 AM Ordering Provider: SHANIKA Nelson [facility] Emergency Department Summary on 08-24-2024 Emergency Department Summary [facility] Medical Records Department [address] [place] [address] Emergency Department Summary 08/24/24 MR#: [id number] Acct: [id number] Name: PATRICK KOROMA Rep #: [id number] : 1980 44 From: rCistian Tate PCP: Care Physician,No Primary Status:DEP ER Location: ED HPI History of Present Illness Chief Complaint: Upper Extremity Injury Informant: patient Narrative Narrative: Nztmb-fugv-urgeotsa male presents right shoulder injury 2 hours [...] No surgical intervention. [facility] similar symptoms: [facility] Medical History Seroma after procedure [...] Medical decision (more content not included)... Normal [facility] Shoulder min 2 Viewson 08-24 Shoulder min 2 Views [facility] Imaging Services [address] [place], [place] [address] Shoulder min 2 Views MR#: [id number] Acct: [id number] Name: PATRICK KOROMA Rep #: [id number] : 1980 M 44 From: Ke Mario PCP: Care Physician,No Primary Status: PRE ER Study: Shoulder min 2 Views Date of Exam: 08/24/24 Exam# [id number] Ordering Dr: Provider,Ed P. PROCEDURE: Right shoulder radiographs REASON FOR EXAM: PAIN, LOSS OF MOBILITY TECHNIQUE: Four views of the right shoulder COMPARISON: None. FINDINGS: See impression RAD/Shoulder min 2 Views IMPRESSION: Negative for acute fracture or malalignment. 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 Mild acromioclavicular joint osteoarthritis. Reading Location: SIERRALucasJEANINE CC: ED PHYSICIAN PROVIDER; No Primary Care Physician Radar Systems Engineer: Signed Normal [facility] Study Interpretation of outs augusta studyon [...] 05/16/2024 10:27:09 PM Ordering Provider: RADHA Nelson [facility] CNCOon 10-21-2023 CNCO Letter Text Normal [facility] Cheikh 10-10-2023 CNPN Telephone (SPNSMN) VALDOPATRICK OLIVIER ([id number]) 1980 M Date Time Provider Department 10/10/23 JULIOCESAR BORRERO [facility] During your visit today, we [...] message sent. Christy Rodrigez RN BSN Nurse Rn Progressive Care Christy Rodrigez RN 10/21/2023 10:47 AM Signed [...] Dr. Hannah. Christy Rodrigez RN BSN Nurse Rn Progressive Care Allergies As of Date: 10/10/2023 Noted Allergy Reaction ADHESIVE TAPE-SILICONES 10/23/2016 4 - Hives KEFLEX (CEPHALEXIN) 11/12/2016 4 - Hives KEPPRA (LEVETIRACETAM) 10/23/2016 4 - Hives MORPHINE 10/23/2016 10 - Anaphylaxis NAPROXEN 07/08/2017 4 - Hives Date Reviewed: 10/07/2023 Reviewed by: Britney Juarez RN - Fully Assessed Reason for Visit: Care Coordination [9791] Prescriptions as of 11/04/2023 - gabapentin (NEURONTIN) [...] Status:Closed by CHRISTY RODRIGEZ on 11/04/23 Normal [facility] CONFIRM BLOOD TYPEon 024 ABO B Normal [facility] Comment on above: Order Comment: Speci men Type: BLOOD SPECIMEN Ordering Facility: [facility] Address: [address] [place] [address] Performed By: #### C ONABO #### [facility] [place] [id number] [address] [place] [address] [place] Rh Nom (Bld) Positive Normal [facility] Comment on above: Order Comment: Speci men Type: BLOOD SPECIMEN Ordering Facility: [facility] Address: [address] [place] [address] Performed By: #### C ONABO #### [facility] CLIA [id number] [address] [place] [address] [place] NURSING PROGon 10-07-2023 NURSING PROG HNO ID: [id number] Author: LESLIE JARRETT, RN Service: ? Author [...] was completed by: Leslie Jarrett RN Normal [facility] CBC W Auto Differential pane l (Bld)on 09-16-2023 Basophils (Bld) [#/Vol] 0.06 10*3/uL Normal <0.11 [facility] Comment on above: Order Comment: Speci men Type: BLOOD SPECIMEN Ordering Facility: [facility] Address: [address] [place] [address] Performed By: #### C ONABO #### [facility] CLIA [id number] [address] [place] [address] [place] Basophils/100 WBC (Bld) 0.6 % Normal [facility] Comment on above: Order Comment: Speci men Type: BLOOD SPECIMEN Ordering Facility: [facility] Address: [address] [place] [address] Performed By: #### C ONABO #### [facility] CLIA [id number] [address] [place] [address] [place] Differential cell count method Nom (Bld) Auto Normal [facility] Comment on above: Order Comment: Speci men Type: BLOOD SPECIMEN Ordering Facility: [facility] Address: [address] [place] [address] Performed By: #### C ONABO #### [facility] CLIA [id number] [address] [place] [address] [place] Eosinophils (Bld) [#/Vol] 0.09 10*3/uL Normal <0.46 [facility] Comment on above: Order Comment: Speci men Type: BLOOD SPECIMEN Ordering Facility: [facility] Address: [address] [place] [address] Performed By: #### C ONABO #### [facility] CLIA [id number] [address] [place] [address] [place] Eosinophils/100 WBC (Bld) 1.0 % Normal [facility] Comment on above: Order Comment: Speci men Type: BLOOD SPECIMEN Ordering Facility: [facility] Address: [address] [place] [address] Performed By: #### C ONABO #### [facility] CLIA [id number] [address] [place] [address] [place] Erythrocyte distribution width (RBC) [Ratio] 12.5 % Normal 11.5-15.0 [facility] Comment on above: Order Comment: Speci men Type: BLOOD SPECIMEN Ordering Facility: [facility] Address: [address] [place] [address] Performed By: #### C ONABO #### [facility] CLIA [id number] [address] [place] [address] [place] Hematocrit (Bld) [Volume fraction] 47.3 % Normal 39.0-51.0 [facility] Comment on above: Order Comment: Speci men Type: BLOOD SPECIMEN Ordering Facility: [facility] Address: [address] [place] [address] Performed By: #### C ONABO #### [facility] CLIA [id number] [address] [place] [address] [place] Hemoglobin (Bld) [Mass/Vol] 16.1 g/dL Normal 13.0-17.0 [facility] Comment on above: Order Comment: Speci men Type: BLOOD SPECIMEN Ordering Facility: [facility] Address: [address] [place] [address] Performed By: #### C ONABO #### [facility] CLIA [id number] [address] [place] [address] [place] Immature granulocytes (Bld) [#/Vol] 0.03 10*3/uL Normal <0.10 [facility] Comment on above: Order Comment: Speci men Type: BLOOD SPECIMEN Ordering Facility: [facility] Address: [address] [place] [address] Performed By: #### C ONABO #### [facility] CLIA [id number] [address] [place] [address] [place] Immature granulocytes/100 WBC (Bld) 0.3 % Normal [facility] Comment on above: Order Comment: Speci men Type: BLOOD SPECIMEN Ordering Facility: [facility] Address: [address] [place] [address] Performed By: #### C ONABO #### [facility] CLIA [id number] [address] [place] [address] [place] Lymphocytes (Bld) [#/Vol] 2.61 10*3/uL Normal 1.00-4.00 [facility] Comment on above: Order Comment: Speci men Type: BLOOD SPECIMEN Ordering Facility: [facility] Address: [address] [place] [address] Performed By: #### C ONABO #### [facility] CLIA [id number] [address] [place] [address] [place] Lymphocytes/100 WBC (Bld) 28.2 % Normal [facility] Comment on above: Order Comment: Speci men Type: BLOOD SPECIMEN Ordering Facility: [facility] Address: [address] [place] [address] Performed By: #### C ONABO #### [facility] CLIA [id number] [address] [place] [address] [place] MCH (RBC) [Entitic mass] 31.0 pg Normal 26.0-34.0 [facility] Comment on above: Order Comment: Speci men Type: BLOOD SPECIMEN Ordering Facility: [facility] Address: [address] [place] [address] Performed By: #### C ONABO #### [facility] CLIA [id number] [address] [place] [address] [place] MCHC (RBC) [Mass/Vol] 34.0 g/dL Normal 30.5-36.0 [facility] Comment on above: Order Comment: Speci men Type: BLOOD SPECIMEN Ordering Facility: [facility] Address: [address] [place] [address] Performed By: #### C ONABO #### [facility] CLIA [id number] [address] [place] [address] [place] MCV (RBC) [Entitic vol] 91.1 fL Normal 80.0-100.[address] [facility] Comment on above: Order Comment: Speci men Type: BLOOD SPECIMEN Ordering Facility: [facility] Address: [address] [place] [address] Performed By: #### C ONABO #### [facility] CLIA [id number] [address] [place] [address] [place] Monocytes (Bld) [#/Vol] 0.51 10*3/uL Normal <0.87 [facility] Comment on above: Order Comment: Speci men Type: BLOOD SPECIMEN Ordering Facility: [facility] Address: [address] [place] [address] Performed By: #### C ONABO #### [facility] CLIA [id number] [address] [place] [address] [place] Monocytes/100 WBC (Bld) 5.5 % Normal [facility] Comment on above: Order Comment: Speci men Type: BLOOD SPECIMEN Ordering Facility: [facility] Address: [address] [place] [address] Performed By: #### C ONABO #### [facility] CLIA [id number] [address] [place] [address] [place] Neutrophils (Bld) [#/Vol] 5.94 10*3/uL Normal 1.45-7.50 [facility] Comment on above: Order Comment: Speci men Type: BLOOD SPECIMEN Ordering Facility: [facility] Address: [address] [place] [address] Performed By: #### C ONABO #### [facility] CLIA [id number] [address] [id number] [address] [place] Neutrophils/100 WBC (Bld) 64.4 % Normal [facility] Comment on above: Order Comment: Speci men Type: BLOOD SPECIMEN Ordering Facility: [facility] Address: [address] [place] [address] Performed By: #### C ONABO #### [facility] CLIA [id number] [address] [place] [address] [place] Nucleated RBC (Bld) [#/Vol] 10*3/uL Normal <0.01 [facility] Comment on above: Order Comment: Speci men Type: BLOOD SPECIMEN Ordering Facility: [facility] Address: [address] [place] [address] Performed By: #### C ONABO #### [facility] CLIA [id number] [address] [place] [address] [place] Nucleated RBC/100 WBC (Bld) [Ratio] 0.0 /100 WBC Normal [facility] Comment on above: Order Comment: Speci men Type: BLOOD SPECIMEN Ordering Facility: [facility] Address: [address] [place] [address] Performed By: #### C ONABO #### [facility] CLIA [id number] [address] [place] [address] [place] Platelet mean volume (Bld) [Entitic vol] 9.6 fL Normal 9.0-12.7 [facility] Comment on above: Order Comment: Speci men Type: BLOOD SPECIMEN Ordering Facility: [facility] Address: [address] [place] [address] Performed By: #### C ONABO #### [facility] CLIA [id number] [address] [place] [address] [place] Platelets (Bld) [#/Vol] 307 10*3/uL Normal 150-400 [facility] Comment on above: Order Comment: Speci men Type: BLOOD SPECIMEN Ordering Facility: [facility] Address: [address] [place] [address] Performed By: #### C ONABO #### [facility] CLIA [id number] [address] [place] [address] [place] RBC (Bld) [#/Vol] 5.19 10*6/uL Normal 4.20-6.00 [facility] Comment on above: Order Comment: Speci men Type: BLOOD SPECIMEN Ordering Facility: [facility] Address: [address] [place] [address] Performed By: #### C ONABO #### [facility] CLIA [id number] [address] [place] [address] [place] WBC (Bld) [#/Vol] 9.24 10*3/uL Normal 3.70-11.00 [facility] Comment on above: Order Comment: Speci men Type: BLOOD SPECIMEN Ordering Facility: [facility] Address: [address] [place] [address] Performed By: #### C ONABO #### [facility] CLIA [id number] [address] [place] [address] [place] Comprehensive metabolic 2000 panelon 09-16-2023 Albumin [Mass/Vol] 4.1 g/dL Normal 3.9-4.9 [facility] Comment on above: Order Comment: Speci men Type: BLOOD SPECIMEN Ordering Facility: [facility] Address: [address] [place] [address] Performed By: #### C ONABO #### [facility] CLIA [id number] [address] [place] [address] [place] ALP [Catalytic activity/Vol] 46 U/L Normal 38-113 [facility] Comment on above: Order Comment: Speci men Type: BLOOD SPECIMEN Ordering Facility: [facility] Address: [address] [place] [address] Performed By: #### C ONABO #### [facility] CLIA [id number] [address] [place] [address] [place] ALT [Catalytic activity/Vol] 21 U/L Normal 10-54 [facility] Comment on above: Order Comment: Speci men Type: BLOOD SPECIMEN Ordering Facility: [facility] Address: [address] [place] [address] Performed By: #### C ONABO #### [facility] CLIA [id number] [address] [place] [address] [place] Anion gap [Moles/Vol] 12 mmol/L Normal 9-18 [facility] Comment on above: Order Comment: Speci men Type: BLOOD SPECIMEN Ordering Facility: [facility] Address: [address] [place] [address] Performed By: #### C ONABO #### [facility] CLIA [id number] [address] [place] [address] [place] AST [Catalytic activity/Vol] 19 U/L Normal 14-40 [facility] Comment on above: Order Comment: Speci men Type: BLOOD SPECIMEN Ordering Facility: [facility] Address: [address] [place] [address] Performed By: #### C ONABO #### [facility] CLIA [id number] [address] [place] [address] [place] Bilirubin [Mass/Vol] 0.2 mg/dL Normal 0.2-1.3 [facility] Comment on above: Order Comment: Speci men Type: BLOOD SPECIMEN Ordering Facility: [facility] Address: [address] [place] [address] Performed By: #### C ONABO #### [facility] CLIA [id number] [address] [place] [address] [place] Calcium [Mass/Vol] 9.1 mg/dL Normal 8.5-10.2 [facility] Comment on above: Order Comment: Speci men Type: BLOOD SPECIMEN Ordering Facility: [facility] Address: [address] [place] [address] Performed By: #### C ONABO #### [facility] CLIA [id number] [address] [place] [address] [place] Chloride [Moles/Vol] 104 mmol/L Normal 97-105 [facility] Comment on above: Order Comment: Speci men Type: BLOOD SPECIMEN Ordering Facility: [facility] Address: [address] [place] [address] Performed By: #### C ONABO #### [facility] CLIA [id number] [address] [place] [address] [place] CO2 [Moles/Vol] 20 mmol/L Low 22-30 [facility] Comment on above: Order Comment: Speci men Type: BLOOD SPECIMEN Ordering Facility: [facility] Address: [address] [place] [address] Performed By: #### C ONABO #### [facility] CLIA [id number] [address] [place] [address] [place] Creatinine [Mass/Vol] 0.73 mg/dL Normal 0.73-1.22 [facility] Comment on above: Order Comment: Speci men Type: BLOOD SPECIMEN Ordering Facility: [facility] Address: [address] [place] [address] Performed By: #### C ONABO #### [facility] CLIA [id number] [address] [place] [address] [place] Creatinine and Glomerular filtration rate.predicted panel (S/P/Bld) 115 mL/min/1.73m??? Normal >=60 [facility] Comment on above: Order Comment: Speci men Type: BLOOD SPECIMEN Ordering Facility: [facility] Address: [address] [place] [address] Result Comment: Katie mated Glomerular Filtration Rate [...] ONABO #### [facility] CLIA [id number] [address] [place] [address] [place] Glucose [Mass/Vol] 124 mg/dL High 74-99 [facility] Comment on above: Order Comment: Vikash vasquez Type: BLOOD SPECIMEN Ordering Facility: [facility] Address: [address] [place] [address] Result Comment: The [place] [employer] (ADA) provides guidance for cutoff [...] Standards of Medical Care in Diabetes 2016, [place] [employer]. Diabetes Care. 2016.39(Suppl 1). Performed By: #### C ONABO #### [facility] [place] [id number] [address] [place] [address] [place] Potassium [Moles/Vol] 4.2 mmol/L Normal 3.7-5.1 [facility] Comment on above: Order Comment: Vikash vasquez Type: BLOOD SPECIMEN Ordering Facility: [facility] Address: [address] [place] [address] Performed By: #### C ONABO #### [facility] CLIA [id number] [address] [place] [address] [place] Protein [Mass/Vol] 6.8 g/dL Normal 6.3-8.0 [facility] Comment on above: Order Comment: Vikash vasquez Type: BLOOD SPECIMEN Ordering Facility: [facility] Address: [address] [place] [address] Performed By: #### C ONABO #### [facility] CLIA [id number] [address] [place] [address] [place] Sodium [Moles/Vol] 136 mmol/L Normal 136-144 [facility] Comment on above: Order Comment: Speci men Type: BLOOD SPECIMEN Ordering Facility: [facility] Address: [address] [place] [address] Performed By: #### C ONABO #### [facility] CLIA [id number] [address] [place] [address] [place] Urea nitrogen [Mass/Vol] 9 mg/dL Normal 9-24 [facility] Comment on above: Order Comment: Speci men Type: BLOOD SPECIMEN Ordering Facility: [facility] Address: [address] [place] [address] Performed By: #### C ONABO #### [facility] CLIA [id number] [address] [place] [address] [place] ECG COMPLETEon 09-16-2023 ECG COMPLETE Ventricular Rate : 9 6 BPM Atrial Rate : 96 BPM P-R Interval : 136 ms QRS Duration : 94 ms Q-T Interval : 362 ms QTC Calculation(Bazett) : 457 ms Calculated P Hitchcock : 30 degrees Calculated R Hitchcock : 19 degrees Calculated T Hitchcock : 18 degrees NORMAL SINUS RHYTHM NORMAL ECG Confirmed by MD SHILOH, PhD, MATTHEW ([id number]) on 09/25/2023 1:38:47 PM NAME : PATRICK KOROMA PID : [id number] : 1980 Gender : Male Race : ORD : [id number] Procedure Date : Sep 16 2023 12:20:58 Edit Date : Sep 25 2023 13:38:51 Diagnosis: NORMAL SINUS RHYTHM NORMAL ECG Confirmed by MD SHILOH, PhD, MATTHEW ([id number]) on 09/25/2023 1:38:47 PM Test Reason : Location : 119 : A17 A17 Overread By : MD SHILOH, PhD,MATTHEW Edited By : MD SHILHO, PhD,MATTHEW Referred By : TRINIDAD RICHARDSON Acquired by : ESAU MCGARRY [facility] HISTORY PHYSICALon HISTORY PHYSICAL HNO ID: [id number] Author: GILLES GRAHAM PA-C Service: ? Author Type: Physician Casting Molder Type: H&P Filed: 09/16/2023 12:27 Note Text: [...] requiring medication, no history of angina, CHF, MA, cardiac surgery or stents. Denies rest pain, [...] 1.00 Year (more content not included)... Normal [facility] PT panel Coag (PPP)on 2023 INR Coag (PPP) [Relative time] 0.9 {INR} Normal 0.9-1.3 [facility] Comment on above: Order Comment: Vikash vasquez Type: BLOOD SPECIMEN Ordering Facility: [facility] Address: [address] [place] [address] Result Comment: Bisi min K Antagonist (VKA) Therapeutic Range: INR 2 to 3 (Target INR of 2.5) Note: For patients treated with VKA drugs, such as warfarin, the [place] [employer] 2012 Guideline recommends [...] Chest 2012, 141:7S-47S Sharla RA, et al. [facility] 2017, 70: 252-289 Performed By: #### C ONABO #### [facility] [id number] [address] [place], [place] [address] [address] [place] PT Coag (PPP) [Time] 10.1 s Normal 9.7-13.0 [facility] Comment on above: Order Comment: Vikash vasquez Type: BLOOD SPECIMEN Ordering Facility: [facility] Address: [address] [place] [address] Performed By: #### C ONABO #### [facility] CLIA [id number] [address] [place] [address] [place] TYPE AND SCREEN,30 DAYon ABO B Normal [facility] Comment on above: Order Comment: Speci men Type: BLOOD SPECIMEN Ordering Facility: [facility] Address: [address] [place] [address] Performed By: #### T SCR30 #### [facility] CLIA [id number] [address] [place] [address] OF HANS HISTORICAL AB SCR STATUS Negative Normal [facility] Comment on above: Order Comment: Speci men Type: BLOOD SPECIMEN Ordering Facility: [facility] Address: [address] [place] [address] Performed By: #### T SCR30 #### [facility] CLIA [id number] [address] [place] [address] [place] Rh Nom (Bld) Positive Normal [facility] Comment on above: Order Comment: Speci men Type: BLOOD SPECIMEN Ordering Facility: [facility] Address: [address] [place] [address] Performed By: #### T SCR30 #### [facility] CLIA [id number] [address] [place] [address] [place] aPTT PPPon 09-16-2023 aPTT Coag (PPP) [Time] 29.1 s Normal 23.0-32.4 [facility] Comment on above: Order Comment: Speci men Type: BLOOD SPECIMEN Ordering Facility: [facility] Address: [address] [place] [address] Performed By: #### C ONABO #### [facility] CLIA [id number] [address] [place] [address] [place] CNOVon 08-06-2023 CNOV Office Visit (NPRC21 ) PATRICK KOROMA ([id number]) 1980 M Date Time Provider Department 08/06/23 9:30 AM VICKI MERAZ NPRC21 During your visit today, we recorded the following information about you: Pulse Blood pressure Weight Height 107/minute 153/101 158.8 kg 1.88 m Vicki Meraz APRN.[facility] 08/06/2023 10:16 AM Signed In-Person Visit Present: patient [facility] Neurological [facility] August 06, 2023 Patrick Koroma is a 43 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 He was referred by Suresh Griffiths CNP (General Surgery) [address] [address]. This consultation was shared with the referral source via the [facility] electronic medical record. The patient [...] activity was identified. 08/06/2023 by Vicki Meraz APRN.TANKER DRIVER, DNP Functional Limitations: The patient has been [...] hematoma (HCC) (more content not included)... Normal [facility] CNOVon 07-07-2023 CNOV Office Visit (GENN ) PATRICK KOROMA ([id number]) 1980 M Date Time Provider Department 07/07/23 [...] Viviana Teresa MD 07/07/2023 9:35 AM Signed [facility] - HISTORY [...] assisted repair of recurrent ventral hernia at [facility] with Dr Aaron Duque with removal of [...] is warm (more content not included)... Normal [facility] .Auto Diffon 06-28-2023 Basophil, Absolute 0.0 10 3/mcL Normal 0.0-0.2 [facility] ([place]) Comment on above: Performed By: #### C CORNELIA GARIBAY ADIFF, MDW, LIP, ANEU, GFR #### [address] [address] Basophils/100 WBC (Bld) 0.2 % Normal 0.0-2.5 A [facility] ([place]) Comment on above: Performed By: #### C CORNELIA GARIBAY ADIFF, MDW, LIP, ANEU, GFR #### [address] [place], [place] [address] Eosinophil, Absolute 0.2 10 3/mcL Normal 0.0-0.4 [facility] ([place]) Comment on above: Performed By: #### C BC, CMP, ADIFF, MDW, LIP, ANEU, GFR #### [address] [address] Eosinophils/100 WBC (Bld) 2.4 % Normal 0.0-7.0 [facility] ([place]) Comment on above: Performed By: #### C BC, CMP, ADIFF, MDW, LIP, ANEU, GFR #### [address] [address] Lymphocyte, Absolute 2.8 10 3/mcL Normal 0.8-3.9 [facility] ([place]) Comment on above: Performed By: #### C BC, CMP, ADIFF, MDW, LIP, ANEU, GFR #### [address] [address] Lymphocytes/100 WBC (Bld) 32.1 % Normal 10.0-50.0 [facility] ([place] Comment on above: Performed By: #### C BC, CMP, ADIFF, MDW, LIP, ANEU, GFR #### [address] [address] Monocyte, Absolute 0.6 10 3/mcL Normal 0.2-1.0 [facility] ([place] Comment on above: Performed By: #### C BC, CMP, ADIFF, MDW, LIP, ANEU, GFR #### [address] [address] Monocytes/100 WBC (Bld) 6.7 % Normal 1.7-13.0 [facility] ([place]) Comment on above: Performed By: #### C BC, CMP, ADIFF, MDW, LIP, ANEU, GFR #### [address] [address] Neutrophils/100 WBC (Bld) 58.6 % Normal 37.0-80.0 [facility] ([place] Comment on above: Performed By: #### C BC, CMP, ADIFF, MDW, LIP, ANEU, GFR #### [address] [address] .GFRon 06-28-2023 GFR 110 ml/min/1.73sqm Normal [facility] ([place]) Comment on above: Result Comment: GFR Population [...] CORNELIA, KLARISSA, ANURAG, LIP, ANEU, GFR #### [address] [address] GFR Non- 91 ml/min/1.73sqm Normal [facility] ([place] Comment on above: Result Comment: GFR Population [...] CORNELIA, KLARISSA, ANURAG, LIP, ANEU, GFR #### [address] [address] .MDWon 06-28-2023 Monocyte Distribution Width 20.24 High 0.00-20.00 [facility] ([place]) Comment on above: Result Comment: For adults in ED, MDW>20.0 may be associated with a higher risk of sepsis during the first 12hrs of hospital admission Performed By: #### C LANI, CORNELIA, ANURAG CYR, LIP, ANEU, GFR #### [address] [address] .NEUABSon 06-28-2023 Neutrophil, Absolute 5.2 10 3/mcL Normal 2.9-6.2 [facility] ([place]) Comment on above: Performed By: #### C LANI, CORNELIA, ANURAG CYR, LIP, ANEU, GFR #### [address] [address] .Urinalysis Microscopic (AO) on 06-28-2023 UA Amorphus 2+ /hpf Normal [facility] ([place]) Comment on above: Performed By: #### C LANI, CORNELIA, KLARISSA, ANURAG, LIP, ANEU, GFR #### [address] [address] UA Mucous Trace Normal [facility] ([place] Comment on above: Performed By: #### C LANI, CORNELIA, ANURAG CYR, LIP, ANEU, GFR #### [address] [address] UA RBC None Seen Normal None Seen [facility] ([place] Comment on above: Performed By: #### C LANI, CORNELIA, ANURAG CYR, LIP, ANEU, GFR #### [address] [address] UA Squam Epithelial None Seen Normal None Seen [facility] ([place]) Comment on above: Performed By: #### C LANI, CORNELIA, ANURAG CYR, LIP, ANEU, GFR #### [address] [address] UA WBC None Seen Normal None Seen [facility] ([place] Comment on above: Performed By: #### C LANI, CORNELIA, ANURAG CYR, LIP, ANEU, GFR #### [address] [address] CBCon 06-28-2023 Erythrocyte distribution width (RBC) [Ratio] 13.5 % Normal 11.5-14.5 [facility] ([place] Comment on above: Performed By: #### C BC, CMP, ADIFF, MDW, LIP, ANEU, GFR #### [address] [address] Hematocrit (Bld) [Volume fraction] 44.3 % Normal 42.0-52.0 [facility] ([place] Comment on above: Performed By: #### C BC, CMP, ADIFF, MDW, LIP, ANEU, GFR #### [address] [address] Hgb 15.4 G/dL Normal 14.0-18.0 [facility] ([place] Comment on above: Performed By: #### C BC, CMP, ADIFF, MDW, LIP, ANEU, GFR #### [address] [address] MCH (RBC) [Entitic mass] 31.5 pg High 27.0-31.2 [facility] ([place] Comment on above: Performed By: #### C BC, CMP, ADIFF, MDW, LIP, ANEU, GFR #### [address] [address] MCHC 34.8 G/dL Normal 31.8-35.4 [facility] ([place]) Comment on above: Performed By: #### C BC, CMP, ADIFF, MDW, LIP, ANEU, GFR #### [address] [address] MCV (RBC) [Entitic vol] 90.6 fL Normal 80.0-94.0 [facility] ([place]) Comment on above: Performed By: #### C BC, CMP, ADIFF, MDW, LIP, ANEU, GFR #### [address] [address] Platelet 294 10 3/mcL Normal 130-400 [facility] ([place]) Comment on above: Performed By: #### C BC, CMP, ADIFF, MDW, LIP, ANEU, GFR #### [address] [address] Platelet mean volume (Bld) [Entitic vol] 7.2 fL Low 7.4-10.4 [facility] ([place] Comment on above: Performed By: #### C BC, CMP, ADJAN, MDW, LIP, ANEU, GFR #### [address] [address] RBC 4.89 10 6/mcL Normal 4.04-6.13 [facility] ([place]) Comment on above: Performed By: #### C BC, CMP, ADIFF, MDW, LIP, ANEU, GFR #### [address] [address] WBC 8.8 10 3/mcL Normal 4.6-10.8 [facility] ([place] Comment on above: Performed By: #### C BC, CMP, ADIFF, MDW, LIP, ANEU, GFR #### [address] [address] CMPon 06-28-2023 Albumin Level 3.3 G/dL Low 3.5-5.0 [facility] ([place]) Comment on above: Performed By: #### C BC, CMP, KLARISSA, MDW, LIP, ANEU, GFR #### [address] [address] Albumin/Globulin [Mass ratio] 0.9 {ratio} Low 1.1-2.5 [facility] ([place] Comment on above: Performed By: #### C BC, CMP, ADIFF, MDW, LIP, ANEU, GFR #### [address] [address] ALP [Catalytic activity/Vol] 46 U/L Normal 40-135 [facility] ([place]) Comment on above: Performed By: #### C BC, CMP, ADIFF, MDW, LIP, ANEU, GFR #### [address] [address] ALT [Catalytic activity/Vol] 31 U/L Normal 16-63 [facility] ([place]) Comment on above: Performed By: #### C BC, CMP, ADIFF, MDW, LIP, ANEU, GFR #### [address] [address] AST [Catalytic activity/Vol] 16 U/L Normal 10-40 [facility] ([place] Comment on above: Performed By: #### C BC, CORNELIA, KLARISSA, W, LIP, ANEU, GFR #### [address] [address] Bili Total 0.3 mg/dL Normal 0.2-1.0 [facility] ([place]) Comment on above: Result Comment: Use of this assay is not recommended for patients undergoing treatment with eltrombopag due to the potential for falsely elevated results. Performed By: #### C LANI, CORNELIA, ANURAG CYR, LIP, ANEU, GFR #### [address] [address] BUN/Creatinine Ratio 13 ratio Normal 7-27 [facility] ([place]) Comment on above: Performed By: #### C BC, CORNELIA, ANURAG CYR, LIP, ANEU, GFR #### [address] [address] Calcium [Mass/Vol] 9.1 mg/dL Normal 8.4-10.2 [facility] ([place]) Comment on above: Performed By: #### C LANI, CORNELIA, KLARISSA, ANURAG, LIP, ANEU, GFR #### [address] [address] Chloride [Moles/Vol] 103 mmol/L Normal 98-107 [facility] ([place]) Comment on above: Performed By: #### C BC, CORNELIA, KLARISSA, W, LIP, ANEU, GFR #### [address] [address] CO2 [Moles/Vol] 30 mmol/L High 22-29 [facility] ([place]) Comment on above: Performed By: #### C BC, CORNELIA, KLARISSA, W, LIP, ANEU, GFR #### [address] [address] Creatinine [Mass/Vol] 0.91 mg/dL Normal 0.70-1.30 [facility] ([place]) Comment on above: Performed By: #### C BC, CMP, ADIFF, MDW, LIP, ANEU, GFR #### [address] [address] Electrolyte Balance 6.0 mEq/L Normal 4.0-15.0 [facility] ([place]) Comment on above: Performed By: #### C BC, CMP, ADIFF, MDW, LIP, ANEU, GFR #### [address] [address] Globulin 3.5 G/dL Normal [facility] ([place] Comment on above: Performed By: #### C BC, CMP, ADIFF, MDW, LIP, ANEU, GFR #### [address] [address] Glucose [Mass/Vol] 137 mg/dL High 70-105 [facility] ([place]) Comment on above: Performed By: #### C BC, CMP, ADIFF, MDW, LIP, ANEU, GFR #### [address] [address] Potassium [Moles/Vol] 3.8 mmol/L Normal 3.5-5.1 [facility] ([place]) Comment on above: Performed By: #### C BC, CMP, ADIFF, MDW, LIP, ANEU, GFR #### [address] [address] Sodium [Moles/Vol] 139 mmol/L Normal 136-145 [facility] ([place]) Comment on above: Performed By: #### C BC, CMP, ADIFF, MDW, LIP, ANEU, GFR #### [address] [address] Total Protein 6.8 G/dL Normal 6.4-8.2 [facility] ([place]) Comment on above: Performed By: #### C BC, CMP, ADIFF, MDW, LIP, ANEU, GFR #### [address] [address] Urea nitrogen [Mass/Vol] 12 mg/dL Normal 7-18 [facility] ([place] Comment on above: Performed By: #### C BC, CMP, KLARISSA, W, LIP, ANEU, GFR #### [place] [address] [place], [place] [address] CT ABD/PELVIS W/ IV CONTRAST ONLYon 06-28-2023 [...] 06/28/2023 4:25:43 PM Ordering Provider: YOUNG Nelson [facility] ([place]) LABORATORYOrdered By: Becka Artis on 06-28-2023 Appearance [...] Lactic Acid Lvl 1.4 mmol/L Normal 0.4-2.0 [facility] ([place]) Comment on above: Performed By: #### L AC #### [address] [place], [place] [address] LIPon 06-28-2023 Lipase Level 28 U/L Normal 16-77 [facility] ([place]) Comment on above: Performed By: #### C BC, CMP, ADJAN, MDW, LIP, ANEU, GFR #### [address] [address] No Panel Informationon 06-28 Microscopic examination of blood, culture Culture has been received in lab and is no growth to date. Routine cultures are held for 5 days. [facility] UAon 06-28-2023 Color (U) Yellow Normal [facility] ([place] Comment on above: Performed By: #### C LANI, CORNELIA, ANURAG CYR, LIP, ANEU, GFR #### [address] [address] Glucose (U) [Mass/Vol] Negative Normal Negative [facility] ([place]) Comment on above: Performed By: #### C LANI, CORNELIA, ANURAG CYR, LIP, ANEU, GFR #### [address] [address] Ketones Ql (U) Negative Normal Negative [facility] ([place]) Comment on above: Performed By: #### C LANI, CORNELIA, ANURAG CYR, LIP, ANEU, GFR #### [address] [address] UA Appear Slightly Cloudy Abnormal Clear [facility] ([place] Comment on above: Performed By: #### C LANI, CORNELIA, ANURAG CYR, LIP, ANEU, GFR #### [address] [address] UA Blood Negative Normal Negative [facility] ([place] Comment on above: Performed By: #### C LANI, CORNELIA, ANURAG CYR, LIP, ANEU, GFR #### [address] [address] UA Leuk Est Negative Normal Negative [facility] ([place] Comment on above: Performed By: #### C LANI, CORNELIA, ANURAG CYR, LIP, ANEU, GFR #### [address] [address] UA Nitrite Negative Normal Negative [facility] ([place] Comment on above: Performed By: #### C BC, CORNELIA, ANURAG CYR, LIP, ANEU, GFR #### [address] [address] UA pH 7.0 Normal 5.0 - 8.0 [facility] ([place] Comment on above: Performed By: #### C BC, CMP, KLARISSA, W, LIP, ANEU, GFR #### [address] [address] UA Protein Negative Normal Negative [facility] ([place] Comment on above: Performed By: #### C BC, CORNELIA, KLARISSA, ANURAG, LIP, ANEU, GFR #### [address] [address] UA Spec Grav 1.020 Normal 1.015-1.025 [facility] ([place]) Comment on above: Performed By: #### C LANI, CORNELIA, KLARISSA, ANURAG, LIP, ANEU, GFR #### [place] [id number] UA Specimen Type Clean Catch Normal [facility] ([place]) Comment on above: Performed By: #### C LANI, CORNELIA, KLARISSA, W, LIP, ANEU, GFR #### [address] [address] UA Urobilinogen 0.2 E.U./dL Normal 0.2-1.0 [facility] ([place] Comment on above: Performed By: #### C LANI, CORNELIA, KLARISSA, ANURAG, LIP, ANEU, GFR #### [place] [id number] Urobilinogen (U) [Mass/Vol] Negative Normal Negative [facility] ([place] Comment on above: Performed By: #### C LANI, CORNELIA, KLARISSA, ANURAG, LIP, ANEU, GFR #### [place] [id number] [place] 06-25-2023 BERTN Telephone ([employer]) PATRICK KOROMA ([id number]) 1980 M Date Time Provider Department 06/25/23 DARIN MILLER During your visit today, we recorded the following information about you: Darin Miller OCCA 06/25/2023 12:52 PM Signed Reviewed chart for clinic prep. Patient has recent CT in [facility]. Obtained operative reports from [facility], sent for scanning. CHUY Coyne-PMAR Allergies [...] Status:Closed by DARIN MILLER on 06/25/23 Normal [facility] .Auto Diffon 06-08-2023 Basophil, Absolute 0.1 10 3/mcL Normal 0.0-0.2 [facility] ([place]) Comment on above: Performed By: #### C LANI, CMP, ADIFF, MDW, LIP, ANEU, GFR #### [address] [address] Basophils/100 WBC (Bld) 1.2 % Normal 0.0-2.5 A [facility] ([place] Comment on above: Performed By: #### C BC, CMP, ADIFF, MDW, LIP, ANEU, GFR #### [address] [address] Eosinophil, Absolute 0.2 10 3/mcL Normal 0.0-0.4 [facility] ([place]) Comment on above: Performed By: #### C BC, CMP, ADIFF, MDW, LIP, ANEU, GFR #### [address] [address] Eosinophils/100 WBC (Bld) 2.1 % Normal 0.0-7.0 [facility] ([place] Comment on above: Performed By: #### C BC, CMP, ADIFF, MDW, LIP, ANEU, GFR #### [address] [address] Lymphocyte, Absolute 2.8 10 3/mcL Normal 0.8-3.9 [facility] ([place] Comment on above: Performed By: #### C BC, CMP, ADIFF, MDW, LIP, ANEU, GFR #### [address] [address] Lymphocytes/100 WBC (Bld) 26.1 % Normal 10.0-50.0 [facility] ([place] Comment on above: Performed By: #### C BC, CMP, ADIFF, MDW, LIP, ANEU, GFR #### [address] [address] Monocyte, Absolute 0.6 10 3/mcL Normal 0.2-1.0 [facility] ([place] Comment on above: Performed By: #### C BC, CMP, ADIFF, MDW, LIP, ANEU, GFR #### [address] [address] Monocytes/100 WBC (Bld) 5.8 % Normal 1.7-13.0 A [facility] ([place] Comment on above: Performed By: #### C LANI, KLARISSA LCOKE MDW, LIP, ANEU, GFR #### [address] [address] Neutrophils/100 WBC (Bld) 64.8 % Normal 37.0-80.0 [facility] ([place] Comment on above: Performed By: #### C LANI, KLARISSA LOCKE MDW, LIP, ANEU, GFR #### [address] [address] .GFRon 06-08-2023 GFR 124 ml/min/1.73sqm Normal [facility] ([place] Comment on above: Result Comment: GFR Population [...] CORNELIA, ANURAG CYR, LIP, ANEU, GFR #### [address] [address] GFR Non- 102 ml/min/1.73sqm Normal [facility] ([place] Comment on above: Result Comment: GFR Population [...] CMP, ADIFF, MDW, LIP, ANEU, GFR #### [address] [address] .MDWon 06-08-2023 Monocyte Distribution Width 18.49 Normal 0.00-20.00 [facility] ([place] Comment on above: Result Comment: For ED adult patients suspected of sepsis, MDW<=20.0 does not rule out sepsis or risk of sepsis Performed By: #### C BC, CMP, ADIFF, MDW, LIP, ANEU, GFR #### [address] [address] .NEUABSon 06-08-2023 Neutrophil, Absolute 6.9 10 3/mcL High 2.9-6.2 [facility] ([place]) Comment on above: Performed By: #### C BC, CMP, ADIFF, MDW, LIP, ANEU, GFR #### [address] [address] BMPon 06-08-2023 BUN/Creatinine Ratio 15 ratio Normal 7-27 [facility] ([place]) Comment on above: Performed By: #### C BC, CMP, ADIFF, MDW, LIP, ANEU, GFR #### [address] [address] Calcium [Mass/Vol] 8.9 mg/dL Normal 8.4-10.2 [facility] ([place] Comment on above: Performed By: #### C BC, CMP, ADIFF, MDW, LIP, ANEU, GFR #### [address] [address] Chloride [Moles/Vol] 104 mmol/L Normal 98-107 [facility] ([place] Comment on above: Performed By: #### C BC, CMP, ADIFF, MDW, LIP, ANEU, GFR #### [address] [address] CO2 [Moles/Vol] 26 mmol/L Normal 22-29 [facility] ([place]) Comment on above: Performed By: #### C BC, CMP, ADJAN, MDW, LIP, ANEU, GFR #### [address] [address] Creatinine [Mass/Vol] 0.82 mg/dL Normal 0.70-1.30 [facility] ([place] Comment on above: Performed By: #### C BC, CMP, ADIFF, MDW, LIP, ANEU, GFR #### [address] [address] Electrolyte Balance 10.0 mEq/L Normal 4.0-15.0 [facility] ([place]) Comment on above: Performed By: #### C BC, CMP, ADIFF, MDW, LIP, ANEU, GFR #### [address] [address] Glucose [Mass/Vol] 110 mg/dL High 70-105 [facility] ([place] Comment on above: Performed By: #### C BC, CMP, ADJAN, MDW, LIP, ANEU, GFR #### [address] [address] Potassium [Moles/Vol] 4.2 mmol/L Normal 3.5-5.1 [facility] ([place] Comment on above: Performed By: #### C BC, CMP, ADJAN, MDW, LIP, ANEU, GFR #### [address] [address] Sodium [Moles/Vol] 140 mmol/L Normal 136-145 [facility] ([place] Comment on above: Performed By: #### C BC, CMP, KLARISSA, MDW, LIP, ANEU, GFR #### [address] [address] Urea nitrogen [Mass/Vol] 12 mg/dL Normal 7-18 [facility] ([place] Comment on above: Performed By: #### C BC, CMP, ADIFF, MDW, LIP, ANEU, GFR #### [address] [address] CBCon 06-08-2023 Erythrocyte distribution width (RBC) [Ratio] 13.6 % Normal 11.5-14.5 [facility] ([place] Comment on above: Performed By: #### C BC, CMP, ADIFF, MDW, LIP, ANEU, GFR #### [address] [address] Hematocrit (Bld) [Volume fraction] 43.4 % Normal 42.0-52.0 [facility] ([place] Comment on above: Performed By: #### C BC, CMP, ADIFF, MDW, LIP, ANEU, GFR #### [address] [address] Hgb 14.9 G/dL Normal 14.0-18.0 [facility] ([place] Comment on above: Performed By: #### C BC, CMP, ADIFF, MDW, LIP, ANEU, GFR #### [address] [address] MCH (RBC) [Entitic mass] 31.1 pg Normal 27.0-31.2 [facility] ([place] Comment on above: Performed By: #### C BC, CMP, ADIFF, MDW, LIP, ANEU, GFR #### [address] [address] MCHC 34.4 G/dL Normal 31.8-35.4 [facility] ([place] Comment on above: Performed By: #### C BC, CMP, ADIFF, MDW, LIP, ANEU, GFR #### [address] [address] MCV (RBC) [Entitic vol] 90.5 fL Normal 80.0-94.0 A [facility] ([place] Comment on above: Performed By: #### C BC, CMP, ADIFF, MDW, LIP, ANEU, GFR #### [address] [address] Platelet 283 10 3/mcL Normal 130-400 [facility] ([place] Comment on above: Performed By: #### C BC, CMP, KLARISSA, MDW, LIP, ANEU, GFR #### [address] [address] Platelet mean volume (Bld) [Entitic vol] 8.0 fL Normal 7.4-10.4 [facility] [place] Comment on above: Performed By: #### C BC, CMP, KLARISSA, MDW, LIP, ANEU, GFR #### [address] [address] RBC 4.80 10 6/mcL Normal 4.04-6.13 [facility] ([place]) Comment on above: Performed By: #### C BC, CMP, KLARISSA, MDW, LIP, ANEU, GFR #### [place] [address] WBC 10.6 10 3/mcL Normal 4.6-10.8 [facility] ([place]) Comment on above: Performed By: #### C BC, CMP, KLARISSA, MDW, LIP, ANEU, GFR #### [address] [address] LABORATORYOrdered By: SYSTEM SYSTEM on 06-08-2023 Basophil, [...] SS .GFRon 05-17-2023 GFR 111 ml/min/1.73sqm Normal [facility] ([place] Comment on above: Result Comment: GFR Population [...] CORNELIA, ANURAG CYR, LIP, ANEU, GFR #### [address] [address] GFR Non- 92 ml/min/1.73sqm Normal [facility] ([place] Comment on above: Result Comment: GFR Population [...] CORNELIA, ANURAG CYR, LIP, ANEU, GFR #### [address] [address] BMPon 05-17-2023 BUN/Creatinine Ratio 14 ratio Normal 7-27 [facility] ([place] Comment on above: Performed By: #### C BC, CORNELIA, ANURAG CYR, LIP, ANEU, GFR #### [address] [address] Calcium [Mass/Vol] 9.5 mg/dL Normal 8.4-10.2 [facility] ([place] Comment on above: Performed By: #### C BC, CMP, ADJAN, MDW, LIP, ANEU, GFR #### [address] [address] Chloride [Moles/Vol] 103 mmol/L Normal 98-107 [facility] ([place] Comment on above: Performed By: #### C BC, CMP, ADIFF, MDW, LIP, ANEU, GFR #### [address] [address] CO2 [Moles/Vol] 24 mmol/L Normal 22-29 [facility] ([place] Comment on above: Performed By: #### C BC, CMP, ADIFF, MDW, LIP, ANEU, GFR #### [address] [address] Creatinine [Mass/Vol] 0.90 mg/dL Normal 0.70-1.30 [facility] ([place] Comment on above: Performed By: #### C BC, CMP, ADJAN, MDW, LIP, ANEU, GFR #### [address] [address] Electrolyte Balance 15.0 mEq/L Normal 4.0-15.0 [facility] ([place]) Comment on above: Performed By: #### C BC, CMP, ADIFF, MDW, LIP, ANEU, GFR #### [address] [address] Glucose [Mass/Vol] 98 mg/dL Normal 70-105 [facility] ([place]) Comment on above: Performed By: #### C BC, CMP, ADIFF, MDW, LIP, ANEU, GFR #### [address] [address] Potassium [Moles/Vol] 4.6 mmol/L Normal 3.5-5.1 [facility] ([place]) Comment on above: Performed By: #### C BC, CMP, ADIFF, MDW, LIP, ANEU, GFR #### [facility] [address] [place], [place] [address] Sodium [Moles/Vol] 142 mmol/L Normal 136-145 [facility] [facility] [place] Comment on above: Performed By: #### C LANI, CORNELIA, ANURAG CYR, LIP, ANEU, GFR #### [facility] [address] [place], [place] [address] Urea nitrogen [Mass/Vol] 13 mg/dL Normal 7-18 [facility] ([place]) Comment on above: Performed By: #### C LANI, CORNELIA, ANURAG CYR, LIP, ANEU, GFR #### [facility] [address] [place], [place] [address] CT ABD/PELVIS W/ IV CONTRAST ONLYon 05-17-2023 [...] 05/16/2023 10:45:51 PM Ordering Provider: TOI Nelson [facility] ([place]) .Auto Diffon 05-16-2023 Basophil, Absolute 0.1 10 3/mcL Normal 0.0-0.2 [facility]) Comment on above: Performed By: #### C BC, CMP, ADIFF, MDW, LIP, ANEU, GFR #### [address] [address] Basophils/100 WBC (Bld) 1.1 % Normal 0.0-2.5 A [facility] ([place]) Comment on above: Performed By: #### C BC, CMP, ADIFF, MDW, LIP, ANEU, GFR #### [address] [address] Eosinophil, Absolute 0.3 10 3/mcL Normal 0.0-0.4 [facility] ([place]) Comment on above: Performed By: #### C BC, CMP, ADIFF, MDW, LIP, ANEU, GFR #### [address] [address] Eosinophils/100 WBC (Bld) 1.9 % Normal 0.0-7.0 [facility] ([place]) Comment on above: Performed By: #### C BC, CMP, ADIFF, MDW, LIP, ANEU, GFR #### [address] [address] Lymphocyte, Absolute 3.4 10 3/mcL Normal 0.8-3.9 [facility] ([place]) Comment on above: Performed By: #### C BC, CMP, ADIFF, MDW, LIP, ANEU, GFR #### [address] [address] Lymphocytes/100 WBC (Bld) 25.6 % Normal 10.0-50.0 [facility] ([place]) Comment on above: Performed By: #### C BC, CMP, KLARISSA, W, LIP, ANEU, GFR #### [address] [address] Monocyte, Absolute 0.8 10 3/mcL Normal 0.2-1.0 [facility] ([place]) Comment on above: Performed By: #### C BC, CMP, KLARISSA, W, LIP, ANEU, GFR #### [address] [address] Monocytes/100 WBC (Bld) 6.0 % Normal 1.7-13.0 A [facility] ([place] Comment on above: Performed By: #### C BC, CMP, KLARISSA, W, LIP, ANEU, GFR #### [address] [address] Neutrophils/100 WBC (Bld) 65.4 % Normal 37.0-80.0 [facility] ([place]) Comment on above: Performed By: #### C BC, CMP, KLARISSA, ANURAG, LIP, ANEU, GFR #### [address] [address] .GFRon 05-16-2023 GFR 98 ml/min/1.73sqm Normal [facility] ([place]) Comment on above: Result Comment: GFR Population [...] CMP, ADJAN, MDW, LIP, ANEU, GFR #### [address] [address] GFR Non- 81 ml/min/1.73sqm Normal [facility] ([place]) Comment on above: Result Comment: GFR Population [...] CMP, ADIFF, MDW, LIP, ANEU, GFR #### [address] [address] .MDWon 05-16-2023 Monocyte Distribution Width 17.52 Normal 0.00-20.00 [facility] ([place]) Comment on above: Result Comment: For ED adult patients suspected of sepsis, MDW<=20.0 does not rule out sepsis or risk of sepsis Performed By: #### C BC, CMP, KLARISSA, MDW, LIP, ANEU, GFR #### [address] [address] .NEUABSon 05-16-2023 Neutrophil, Absolute 8.7 10 3/mcL High 2.9-6.2 [facility] [place]) Comment on above: Performed By: #### C BC, CMP, ADJAN, MDW, LIP, ANEU, GFR #### [address] [address] CBCon 05-16-2023 Erythrocyte distribution width (RBC) [Ratio] 13.4 % Normal 11.5-14.5 [facility] ([place] Comment on above: Performed By: #### C BC, CMP, ADIFF, MDW, LIP, ANEU, GFR #### [address] [address] Hematocrit (Bld) [Volume fraction] 45.6 % Normal 42.0-52.0 [facility] ([place] Comment on above: Performed By: #### C BC, CMP, ADIFF, MDW, LIP, ANEU, GFR #### [place] [id number] Hgb 15.6 G/dL Normal 14.0-18.0 [facility] ([place] Comment on above: Performed By: #### C BC, CMP, ADIFF, MDW, LIP, ANEU, GFR #### [place] [address] MCH (RBC) [Entitic mass] 30.9 pg Normal 27.0-31.2 [facility] ([place]) Comment on above: Performed By: #### C BC, CMP, ADIFF, MDW, LIP, ANEU, GFR #### [place] [address] MCHC 34.1 G/dL Normal 31.8-35.4 [facility] ([place]) Comment on above: Performed By: #### C BC, CMP, ADIFF, MDW, LIP, ANEU, GFR #### [place] [id number] MCV (RBC) [Entitic vol] 90.6 fL Normal 80.0-94.0 [facility] ([place]) Comment on above: Performed By: #### C BC, CMP, ADIFF, MDW, LIP, ANEU, GFR #### [place] [id number] Platelet 303 10 3/mcL Normal 130-400 [facility] ([place]) Comment on above: Performed By: #### C BC, CMP, ADIFF, MDW, LIP, ANEU, GFR #### [place] [id number] Platelet mean volume (Bld) [Entitic vol] 7.3 fL Low 7.4-10.4 [facility] [place] Comment on above: Performed By: #### C BC, CMP, KLARISSA, W, LIP, ANEU, GFR #### [address] [address] RBC 5.04 10 6/mcL Normal 4.04-6.13 [facility] ([place]) Comment on above: Performed By: #### C BC, CMP, KLARISSA, MDW, LIP, ANEU, GFR #### [address] [address] WBC 13.3 10 3/mcL High 4.6-10.8 [facility] ([place]) Comment on above: Performed By: #### C BC, CMP, KLARISSA, MDW, LIP, ANEU, GFR #### [address] [address] CMPon 05-16-2023 Albumin Level 3.4 G/dL Low 3.5-5.0 [facility] ([place]) Comment on above: Performed By: #### C BC, CMP, KLARISSA, W, LIP, ANEU, GFR #### [address] [address] Albumin/Globulin [Mass ratio] 0.9 {ratio} Low 1.1-2.5 [facility] ([place] Comment on above: Performed By: #### C BC, CMP, KLARISSA, MDW, LIP, ANEU, GFR #### [address] [address] ALP [Catalytic activity/Vol] 47 U/L Normal 40-135 [facility] ([place]) Comment on above: Performed By: #### C BC, CMP, KLARISSA, MDW, LIP, ANEU, GFR #### [address] [address] ALT [Catalytic activity/Vol] 23 U/L Normal 16-63 [facility] ([place]) Comment on above: Performed By: #### C BC, CMP, KLARISSA, W, LIP, ANEU, GFR #### [address] [address] AST [Catalytic activity/Vol] 21 U/L Normal 10-40 [facility] ([place]) Comment on above: Performed By: #### C BC, CMP, ADIFF, MDW, LIP, ANEU, GFR #### [address] [address] Bili Total 0.2 mg/dL Normal 0.2-1.0 [facility] ([place] Comment on above: Result Comment: Use of this assay is not recommended for patients undergoing treatment with eltrombopag due to the potential for falsely elevated results. Performed By: #### C BC, CMP, ADIFF, MDW, LIP, ANEU, GFR #### [address] [address] BUN/Creatinine Ratio 14 ratio Normal 7-27 [facility] ([place]) Comment on above: Performed By: #### C BC, CMP, ADIFF, MDW, LIP, ANEU, GFR #### [address] [address] Calcium [Mass/Vol] 9.3 mg/dL Normal 8.4-10.2 [facility] ([place]) Comment on above: Performed By: #### C BC, CMP, ADIFF, MDW, LIP, ANEU, GFR #### [address] [address] Chloride [Moles/Vol] 96 mmol/L Low 98-107 [facility] ([place]) Comment on above: Performed By: #### C BC, CMP, ADIFF, MDW, LIP, ANEU, GFR #### [address] [address] CO2 [Moles/Vol] 24 mmol/L Normal 22-29 [facility] ([place]) Comment on above: Performed By: #### C BC, CMP, ADIFF, MDW, LIP, ANEU, GFR #### [address] [address] Creatinine [Mass/Vol] 1.00 mg/dL Normal 0.70-1.30 [facility] ([place]) Comment on above: Performed By: #### C BC, CMP, KLARISSA, MDW, LIP, ANEU, GFR #### [address] [address] Electrolyte Balance 6.0 mEq/L Normal 4.0-15.0 [facility] ([place]) Comment on above: Performed By: #### C BC, CMP, ADIFF, MDW, LIP, ANEU, GFR #### [address] [address] Globulin 3.8 G/dL Normal [facility] ([place] Comment on above: Performed By: #### C BC, CMP, KLARISSA, MDW, LIP, ANEU, GFR #### [address] [address] Glucose [Mass/Vol] 121 mg/dL High 70-105 [facility] ([place]) Comment on above: Performed By: #### C BC, CMP, ADJAN, MDW, LIP, ANEU, GFR #### [address] [address] Potassium [Moles/Vol] 3.8 mmol/L Normal 3.5-5.1 [facility] [place]) Comment on above: Performed By: #### C BC, CMP, ADIFF, MDW, LIP, ANEU, GFR #### [address] [address] Sodium [Moles/Vol] 126 mmol/L Low 136-145 [facility] ([place]) Comment on above: Performed By: #### C BC, CMP, ADIFF, MDW, LIP, ANEU, GFR #### [address] [address] Total Protein 7.2 G/dL Normal 6.4-8.2 [facility] ([place]) Comment on above: Performed By: #### C BC, CMP, ADIFF, MDW, LIP, ANEU, GFR #### [address] [address] Urea nitrogen [Mass/Vol] 14 mg/dL Normal 7-18 [facility] ([place]) Comment on above: Performed By: #### C BC, CMP, KLARISSA, MDW, LIP, ANEU, GFR #### [place] [id number] [place], [place] [address] LABORATORYOrdered By: SYSTEM SYSTEM on 05-16-2023 Albumin [...] Lipase Level 20 U/L Normal 16-77 [facility] [place] Comment on above: Performed By: #### C BC, CMP, KLARISSA, W, LIP, ANEU, GFR #### [address] [address] UAon 05-16-2023 Color (U) Yellow Normal [facility] ([place]) Comment on above: Performed By: #### U A #### [facility] [address] [place], [place] [address] Glucose (U) [Mass/Vol] Negative Normal Negative [facility] ([place]) Comment on above: Performed By: #### U A #### [address] [address] Ketones Ql (U) Negative Normal Negative [facility] ([place]) Comment on above: Performed By: #### U A #### [address] [address] UA Appear Clear Normal Clear [facility] ([place] Comment on above: Performed By: #### U A #### [address] [address] UA Blood Negative Normal Negative [facility] ([place] Comment on above: Performed By: #### U A #### [address] [address] UA Leuk Est Negative Normal Negative [facility] ([place] Comment on above: Performed By: #### U A #### [address] [address] UA Nitrite Negative Normal Negative [facility] ([place] Comment on above: Performed By: #### U A #### [address] [address] UA pH 6.0 Normal 5.0 - 8.0 [facility] ([place] Comment on above: Performed By: #### U A #### [address] [address] UA Protein Negative Normal Negative [facility] ([place] Comment on above: Performed By: #### U A #### [address] [address] UA Spec Grav >=1.030 Abnormal 1.015-1.025 [facility] ([place]) Comment on above: Performed By: #### U A #### [address] [address] UA Specimen Type Clean Catch Normal [facility] ([place]) Comment on above: Performed By: #### U A #### [address] [address] UA Urobilinogen 0.2 E.U./dL Normal 0.2-1.0 [facility] ([place] Comment on above: Performed By: #### U A #### [address] [address] Urobilinogen (U) [Mass/Vol] Negative Normal Negative [facility] ([place] Comment on above: Performed By: #### U A #### [address] [address] .Auto Diffon 02-12-2023 Basophil, Absolute 0.1 10 3/mcL Normal 0.0-0.2 [facility] ([place]) Comment on above: Performed By: #### C BC, CMP, ADIFF, MDW, LIP, ANEU, GFR #### [address] [address] Basophils/100 WBC (Bld) 1.2 % Normal 0.0-2.5 A [facility] ([place] Comment on above: Performed By: #### C BC, CMP, ADIFF, MDW, LIP, ANEU, GFR #### [address] [address] Eosinophil, Absolute 0.1 10 3/mcL Normal 0.0-0.4 [facility] [place] Comment on above: Performed By: #### C BC, CMP, ADIFF, MDW, LIP, ANEU, GFR #### [address] [address] Eosinophils/100 WBC (Bld) 1.4 % Normal 0.0-7.0 [facility] ([place]) Comment on above: Performed By: #### C BC, CMP, ADIFF, MDW, LIP, ANEU, GFR #### [address] [address] Lymphocyte, Absolute 3.3 10 3/mcL Normal 0.8-3.9 [facility] [place] Comment on above: Performed By: #### C BC, CMP, ADIFF, MDW, LIP, ANEU, GFR #### [address] [address] Lymphocytes/100 WBC (Bld) 35.7 % Normal 10.0-50.0 [facility] ([place] Comment on above: Performed By: #### C BC, CMP, KLARISSA, MDW, LIP, ANEU, GFR #### [address] [address] Monocyte, Absolute 0.5 10 3/mcL Normal 0.2-1.0 [facility] ([place]) Comment on above: Performed By: #### C BC, CMP, ADIFF, MDW, LIP, ANEU, GFR #### [address] [address] Monocytes/100 WBC (Bld) 5.1 % Normal 1.7-13.0 [facility] ([place] Comment on above: Performed By: #### C BC, CMP, ADJAN, MDW, LIP, ANEU, GFR #### [address] [address] Neutrophils/100 WBC (Bld) 56.6 % Normal 37.0-80.0 [facility] ([place] Comment on above: Performed By: #### C BC, CMP, KLARISSA, MDW, LIP, ANEU, GFR #### [address] [address] .GFRon 02-12-2023 GFR Non- 121 ml/min/1.73sqm Normal [facility] ([place]) Comment on above: Result Comment: GFR Population [...] CMP, ADIFF, MDW, LIP, ANEU, GFR #### [address] [address] GFR 146 ml/min/1.73sqm Normal [facility] ([place] Comment on above: Result Comment: GFR Population [...] CMP, ADIFF, MDW, LIP, ANEU, GFR #### [address] [address] .MDWon 02-12-2023 Monocyte Distribution Width 19.74 Normal 0.00-20.00 [facility] ([place] Comment on above: Result Comment: For ED adult patients suspected of sepsis, MDW<=20.0 does not rule out sepsis or risk of sepsis Performed By: #### C BC, CMP, ADIFF, MDW, LIP, ANEU, GFR #### [address] [address] .NEUABSon 02-12-2023 Neutrophil, Absolute 5.2 10 3/mcL Normal 2.9-6.2 [facility] [place]) Comment on above: Performed By: #### C BC, CMP, ADIFF, MDW, LIP, ANEU, GFR #### [address] [address] CBCon 02-12-2023 Erythrocyte distribution width (RBC) [Ratio] 14.0 % Normal 11.5-14.5 [facility] ([place]) Comment on above: Order Comment: clott ed Performed By: #### C BC, CMP, ADIFF, MDW, LIP, ANEU, GFR #### [address] [address] Hematocrit (Bld) [Volume fraction] 44.7 % Normal 42.0-52.0 [facility] ([place]) Comment on above: Order Comment: clott ed Performed By: #### C BC, CMP, ADIFF, MDW, LIP, ANEU, GFR #### [address] [address] Hgb 15.5 G/dL Normal 14.0-18.0 [facility] ([place] Comment on above: Order Comment: clott ed Performed By: #### C BC, CMP, ADIFF, MDW, LIP, ANEU, GFR #### [address] [address] MCH (RBC) [Entitic mass] 30.6 pg Normal 27.0-31.2 [facility] ([place] Comment on above: Order Comment: clott ed Performed By: #### C BC, CMP, ADIFF, MDW, LIP, ANEU, GFR #### [address] [address] MCHC 34.6 G/dL Normal 31.8-35.4 [facility] ([place] Comment on above: Order Comment: clott ed Performed By: #### C BC, CMP, ADIFF, MDW, LIP, ANEU, GFR #### [address] [address] MCV (RBC) [Entitic vol] 88.4 fL Normal 80.0-94.0 A [facility] ([place] Comment on above: Order Comment: clott ed Performed By: #### C BC, CMP, ADIFF, MDW, LIP, ANEU, GFR #### [address] [address] Platelet 271 10 3/mcL Normal 130-400 [facility] [place] Comment on above: Order Comment: clott ed Performed By: #### C BC, CMP, ADIFF, MDW, LIP, ANEU, GFR #### [address] [address] Platelet mean volume (Bld) [Entitic vol] 7.2 fL Low 7.4-10.4 [facility] [place] Comment on above: Order Comment: clott ed Performed By: #### C BC, CMP, ADJAN, MDW, LIP, ANEU, GFR #### [address] [address] RBC 5.06 10 6/mcL Normal 4.04-6.13 [facility] ([place]) Comment on above: Order Comment: clott ed Performed By: #### C BC, CMP, ADIFF, MDW, LIP, ANEU, GFR #### [address] [address] WBC 9.3 10 3/mcL Normal 4.6-10.8 [facility]) Comment on above: Order Comment: clott ed Performed By: #### C BC, CMP, ADJAN, MDW, LIP, ANEU, GFR #### [address] [address] CMPon 02-12-2023 Albumin Level 3.2 G/dL Low 3.5-5.0 [facility] ([place]) Comment on above: Performed By: #### C BC, CMP, KLARISSA, MDW, LIP, ANEU, GFR #### [address] [address] Albumin/Globulin [Mass ratio] 0.8 {ratio} Low 1.1-2.5 [facility] ([place] Comment on above: Performed By: #### C BC, CMP, ADIFF, MDW, LIP, ANEU, GFR #### [address] [address] ALP [Catalytic activity/Vol] 40 U/L Normal 40-135 [facility]) Comment on above: Performed By: #### C BC, CMP, ADIFF, MDW, LIP, ANEU, GFR #### [address] [address] ALT [Catalytic activity/Vol] 25 U/L Normal 16-63 [facility]) Comment on above: Performed By: #### C BC, CMP, ADIFF, MDW, LIP, ANEU, GFR #### [address] [address] AST [Catalytic activity/Vol] 32 U/L Normal 10-40 [facility] ([place] Comment on above: Performed By: #### C BC, CMP, ADIFF, MDW, LIP, ANEU, GFR #### [address] [address] Bili Total 0.3 mg/dL Normal 0.2-1.0 [facility] ([place] Comment on above: Result Comment: Use of this assay is not recommended for patients undergoing treatment with eltrombopag due to the potential for falsely elevated results. Performed By: #### C BC, CMP, ADIFF, MDW, LIP, ANEU, GFR #### [address] [address] BUN/Creatinine Ratio 13 ratio Normal 7-27 [facility] ([place]) Comment on above: Performed By: #### C BC, CMP, ADIFF, MDW, LIP, ANEU, GFR #### [address] [address] Calcium [Mass/Vol] 8.2 mg/dL Low 8.4-10.2 [facility] ([place]) Comment on above: Performed By: #### C BC, CMP, ADIFF, MDW, LIP, ANEU, GFR #### [address] [address] Chloride [Moles/Vol] 102 mmol/L Normal 98-107 [facility] ([place]) Comment on above: Performed By: #### C BC, CMP, ADIFF, MDW, LIP, ANEU, GFR #### [address] [address] CO2 [Moles/Vol] 26 mmol/L Normal 22-29 [facility] ([place]) Comment on above: Performed By: #### C BC, CMP, ADIFF, MDW, LIP, ANEU, GFR #### [address] [address] Creatinine [Mass/Vol] 0.71 mg/dL Normal 0.70-1.30 [facility] ([place]) Comment on above: Performed By: #### C BC, CMP, ADJAN, MDW, LIP, ANEU, GFR #### [address] [address] Electrolyte Balance 9.0 mEq/L Normal 4.0-15.0 [facility] ([place]) Comment on above: Performed By: #### C BC, CMP, ADIFF, MDW, LIP, ANEU, GFR #### [address] [address] Globulin 3.9 G/dL Normal [facility] ([place] Comment on above: Performed By: #### C BC, CMP, ADIFF, MDW, LIP, ANEU, GFR #### [address] [address] Glucose [Mass/Vol] 118 mg/dL High 70-105 [facility] ([place] Comment on above: Performed By: #### C BC, CMP, ADIFF, MDW, LIP, ANEU, GFR #### [address] [address] Potassium [Moles/Vol] 4.9 mmol/L Normal 3.5-5.1 [facility] ([place]) Comment on above: Performed By: #### C BC, CMP, ADIFF, MDW, LIP, ANEU, GFR #### [address] [address] Sodium [Moles/Vol] 137 mmol/L Normal 136-145 [facility] ([place] Comment on above: Performed By: #### C BC, CMP, ADIFF, MDW, LIP, ANEU, GFR #### [address] [address] Total Protein 7.1 G/dL Normal 6.4-8.2 [facility] ([place]) Comment on above: Performed By: #### C BC, CMP, ADIFF, MDW, LIP, ANEU, GFR #### [facility] [address] [place], [place] [address] Urea nitrogen [Mass/Vol] 9 mg/dL Normal 7-18 [facility] ([place] Comment on above: Performed By: #### C BC, CORNELIA, KLARISSA, ANURAG, LIP, ANEU, GFR #### [facility] [address] [place], [place] [address] CT ABD/PELVIS W/ IV CONTRAST ONLYon 02-12-2023 [...] 02/12/2023 8:10:54 PM Ordering Provider: WOODROW MCALLISTER [facility] ([place]) LABORATORYOrdered By: SYSTEM SYSTEM on 02-12-2023 Albumin [...] Lipase Level 39 U/L Normal 16-77 [facility] [place] Comment on above: Performed By: #### C LANI, CORNELIA, ANURAG CYR, LIP, ANEU, GFR #### [address] [address] TROPHSon 02-12-2023 Troponin I High Sensitivity 4.0 ng/L Normal 0.0-76.2 [facility] ([place]) Comment on above: Performed By: #### C LANI, CORNELIA, ANURAG CYR, LIP, ANEU, GFR #### [address] [address] UAon 02-12-2023 Color (U) Yellow Normal [facility] ([place] Comment on above: Performed By: #### U A #### [address] [place] [address] [place], [place] [address] Glucose (U) [Mass/Vol] Negative Normal Negative [facility] ([place] Comment on above: Performed By: #### U A #### [address] [place] [address] [place], [place] [address] Ketones Ql (U) Negative Normal Negative [facility] [place] Comment on above: Performed By: #### U A #### [address] [place] [address] [place], [place] [address] UA Appear Clear Normal Clear [facility] ([place] Comment on above: Performed By: #### U A #### [address] [place] [address] [place], [place] [address] UA Blood Negative Normal Negative [facility] [place] Comment on above: Performed By: #### U A #### [address] [place] [address] [place], [place] [address] UA Leuk Est Negative Normal Negative [facility] [place] Comment on above: Performed By: #### U A #### [address] [place], [place] [address] UA Nitrite Negative Normal Negative [facility] ([place] Comment on above: Performed By: #### U A #### [address] [place], [place] [address] UA pH 7.0 Normal 5.0 - 8.0 [facility] ([place] Comment on above: Performed By: #### U A #### [facility] [place], [place] [address] UA Protein Negative Normal Negative [facility] ([place] Comment on above: Performed By: #### U A #### [facility] [place], [place] [address] UA Spec Grav 1.015 Normal 1.015-1.025 [facility] ([place] Comment on above: Performed By: #### U A #### [facility] [place], [place] [address] UA Specimen Type Clean Catch Normal [facility] ([place] Comment on above: Performed By: #### U A #### [address] [place] [address] [place], [place] [address] UA Urobilinogen 0.2 E.U./dL Normal 0.2-1.0 [facility] ([place] Comment on above: Performed By: #### U A #### [address] [place] [address] [place], [place] [address] Urobilinogen (U) [Mass/Vol] Negative Normal Negative [facility] [place] Comment on above: Performed By: #### U A #### [address] [place], [place] [address] .Auto Diffon 10-20-2022 Basophil, Absolute 0.1 10 3/mcL Normal 0.0-0.2 [facility] ([place] Comment on above: Performed By: #### C BC, CMP, ADIFF, MDW, LIP, ANEU, GFR #### [address] [address] Basophils/100 WBC (Bld) 1.1 % Normal 0.0-2.5 A [facility] [place] Comment on above: Performed By: #### C BC, CMP, ADIFF, MDW, LIP, ANEU, GFR #### [address] [address] Eosinophil, Absolute 0.1 10 3/mcL Normal 0.0-0.4 [facility] [place] Comment on above: Performed By: #### C BC, CMP, ADIFF, MDW, LIP, ANEU, GFR #### [address] [address] Eosinophils/100 WBC (Bld) 1.7 % Normal 0.0-7.0 [facility] ([place] Comment on above: Performed By: #### C BC, CMP, ADIFF, MDW, LIP, ANEU, GFR #### [address] [address] Lymphocyte, Absolute 2.3 10 3/mcL Normal 0.8-3.9 [facility] ([place] Comment on above: Performed By: #### C BC, CMP, ADIFF, MDW, LIP, ANEU, GFR #### [address] [address] Lymphocytes/100 WBC (Bld) 26.4 % Normal 10.0-50.0 [facility] ([place] Comment on above: Performed By: #### C BC, CMP, ADIFF, MDW, LIP, ANEU, GFR #### [address] [address] Monocyte, Absolute 0.6 10 3/mcL Normal 0.2-1.0 [facility] ([place] Comment on above: Performed By: #### C BC, CMP, ADIFF, MDW, LIP, ANEU, GFR #### [address] [address] Monocytes/100 WBC (Bld) 6.9 % Normal 1.7-13.0 A [facility] ([place] Comment on above: Performed By: #### C BC, CMP, ADIFF, MDW, LIP, ANEU, GFR #### [address] [address] Neutrophils/100 WBC (Bld) 63.9 % Normal 37.0-80.0 [facility] ([place]) Comment on above: Performed By: #### C LANI, CORNELIA, ANURAG CYR, SHAHLA, ANEU, GFR #### [address] [address] .GFRon 10-20-2022 GFR 100 ml/min/1.73sqm Normal [facility] ([place]) Comment on above: Result Comment: GFR [...] CORNELIA, ANURAG CYR, LIP, ANEU, GFR #### [address] [address] GFR Non- 83 ml/min/1.73sqm Normal [facility] ([place]) Comment on above: Result Comment: GFR Population [...] CMP, ADIFF, MDW, LIP, ANEU, GFR #### [place] [address] .MDWon 10-20-2022 Monocyte Distribution Width 16.96 Normal 0.00-20.00 [facility] ([place] Comment on above: Result Comment: For ED adult patients suspected of sepsis, MDW<=20.0 does not rule out sepsis or risk of sepsis Performed By: #### C BC, CMP, ADIFF, MDW, LIP, ANEU, GFR #### [place] [address] .NEUABSon 10-20-2022 Neutrophil, Absolute 5.5 10 3/mcL Normal 2.9-6.2 [facility] ([place]) Comment on above: Performed By: #### C BC, CMP, ADIFF, MDW, LIP, ANEU, GFR #### [place] [address] CBCon 10-20-2022 Erythrocyte distribution width (RBC) [Ratio] 12.9 % Normal 11.5-14.5 [facility] ([place]) Comment on above: Performed By: #### C BC, CMP, ADIFF, MDW, LIP, ANEU, GFR #### [place] [address] Hematocrit (Bld) [Volume fraction] 41.4 % Low 42.0-52.0 [facility] ([place]) Comment on above: Performed By: #### C BC, CMP, ADJAN, MDW, LIP, ANEU, GFR #### [place] [address] Hgb 14.1 G/dL Normal 14.0-18.0 [facility] ([place] Comment on above: Performed By: #### C BC, CMP, ADJAN, MDW, LIP, ANEU, GFR #### [place] [address] MCH (RBC) [Entitic mass] 30.4 pg Normal 27.0-31.2 [facility] ([place] Comment on above: Performed By: #### C BC, CMP, ADIFF, MDW, LIP, ANEU, GFR #### [address] [address] MCHC 34.0 G/dL Normal 31.8-35.4 [facility] ([place] Comment on above: Performed By: #### C BC, CMP, ADIFF, MDW, LIP, ANEU, GFR #### [place] [phone] MCV (RBC) [Entitic vol] 89.5 fL Normal 80.0-94.0 A [facility], [facility] ([place]) Comment on above: Performed By: #### C BC, CMP, ADIFF, MDW, LIP, ANEU, GFR #### [place] [id number] Platelet 288 10 3/mcL Normal 130-400 [facility], [facility] ([place]) Comment on above: Performed By: #### C BC, CMP, ADIFF, MDW, LIP, ANEU, GFR #### [place] [address] Platelet mean volume (Bld) [Entitic vol] 7.3 fL Low 7.4-10.4 [facility] ([place] Comment on above: Performed By: #### C BC, CMP, ADIFF, MDW, LIP, ANEU, GFR #### [address] [address] RBC 4.62 10 6/mcL Normal 4.04-6.13 [facility] ([place]) Comment on above: Performed By: #### C BC, CMP, ADIFF, MDW, LIP, ANEU, GFR #### [place] [phone] WBC 8.6 10 3/mcL Normal 4.6-10.8 [facility] ([place] Comment on above: Performed By: #### C BC, CMP, ADIFF, MDW, LIP, ANEU, GFR #### [place] [phone] CMPon 10-20-2022 Albumin Level 3.4 G/dL Low 3.5-5.0 [facility] ([place]) Comment on above: Performed By: #### C BC, CORNELIA, KLARISSA, W, LIP, ANEU, GFR #### [address] [address] Albumin/Globulin [Mass ratio] 1.1 {ratio} Normal 1.1-2.5 [facility] ([place] Comment on above: Performed By: #### C BC, CMP, KLARISSA, W, LIP, ANEU, GFR #### [address] [address] ALP [Catalytic activity/Vol] 47 U/L Normal 40-135 [facility] ([place] Comment on above: Performed By: #### C BC, CMP, KLARISSA, W, LIP, ANEU, GFR #### [address] [address] ALT [Catalytic activity/Vol] 21 U/L Normal 16-63 [facility] ([place] Comment on above: Performed By: #### C BC, CMP, KLARISSA, MDW, LIP, ANEU, GFR #### [address] [address] AST [Catalytic activity/Vol] 18 U/L Normal 10-40 [facility] ([place] Comment on above: Performed By: #### C BC, CMP, KLARISSA, MDW, LIP, ANEU, GFR #### [address] [address] Bili Total 0.2 mg/dL Normal 0.2-1.0 [facility] ([place] Comment on above: Result Comment: Use of this assay is not recommended for patients undergoing treatment with eltrombopag due to the potential for falsely elevated results. Performed By: #### C BC, CMP, KLARISSA, MDW, LIP, ANEU, GFR #### [address] [address] BUN/Creatinine Ratio 13 ratio Normal 7-27 [facility] ([place]) Comment on above: Performed By: #### C BC, CMP, KLARISSA, W, LIP, ANEU, GFR #### [address] [address] Calcium [Mass/Vol] 8.8 mg/dL Normal 8.4-10.2 [facility] ([place] Comment on above: Performed By: #### C BC, CMP, ADIFF, MDW, LIP, ANEU, GFR #### [place] [phone] Chloride [Moles/Vol] 105 mmol/L Normal 98-107 [facility] ([place] Comment on above: Performed By: #### C BC, CMP, ADIFF, MDW, LIP, ANEU, GFR #### [place] [address] CO2 [Moles/Vol] 27 mmol/L Normal 22-29 [facility] ([place]) Comment on above: Performed By: #### C BC, CMP, ADIFF, MDW, LIP, ANEU, GFR #### [place] [phone] Creatinine [Mass/Vol] 0.99 mg/dL Normal 0.70-1.30 [facility] ([place]) Comment on above: Performed By: #### C BC, CMP, ADIFF, MDW, LIP, ANEU, GFR #### [address] [address] Electrolyte Balance 9.0 mEq/L Normal 4.0-15.0 [facility] ([place]) Comment on above: Performed By: #### C BC, CMP, ADIFF, MDW, LIP, ANEU, GFR #### [address] [address] Globulin 3.2 G/dL Normal [facility] ([place] Comment on above: Performed By: #### C BC, CMP, ADIFF, MDW, LIP, ANEU, GFR #### [address] [address] Glucose [Mass/Vol] 109 mg/dL High 70-105 [facility] ([place] Comment on above: Performed By: #### C BC, CMP, ADIFF, MDW, LIP, ANEU, GFR #### [address] [address] Potassium [Moles/Vol] 3.9 mmol/L Normal 3.5-5.1 [facility] ([place] Comment on above: Performed By: #### C BC, CMP, ADIFF, MDW, LIP, ANEU, GFR #### [address] [address] Sodium [Moles/Vol] 141 mmol/L Normal 136-145 [facility] ([place] Comment on above: Performed By: #### C BC, CMP, ADIFF, MDW, LIP, ANEU, GFR #### [address] [address] Total Protein 6.6 G/dL Normal 6.4-8.2 [facility] ([place] Comment on above: Performed By: #### C BC, CMP, ADIFF, MDW, LIP, ANEU, GFR #### [address] [address] Urea nitrogen [Mass/Vol] 13 mg/dL Normal 7-18 [facility] ([place] Comment on above: Performed By: #### C BC, CMP, ADIFF, MDW, LIP, ANEU, GFR #### [address] [address] [address] ABD/PELVIS W/ IV CONTRAST ONLYon 10-20-2022 [...] resident's findings and interpretation. Interpreted by: Wang Francisoc Preliminary Report By: Rhonda Gaspar Electronically signed By Wang Francisco Dictated Date: 10/20/2022 6:05:23 PM Prelim Date: 10/20/2022 6:20:09 PM Sign Date: 10/20/2022 6:25:29 PM Ordering Provider: LEDY REESE Normal [facility]) [place] 10-20-2022 Lactic Acid Lvl 1.2 mmol/L Normal 0.4-2.0 [facility]) Comment on above: Performed By: #### C LANI, CORNELIA, KLARISSA, W, LIP, ANEU, GFR #### [address] [address] LIPon 10-20-2022 Lipase Level 43 U/L Normal 16-77 [facility]) Comment on above: Performed By: #### C BC, CMP, KLARISSA, W, LIP, ANEU, GFR #### [place] [address] [place], [place] [address] LABORATORYOrdered By: Usha Tenorio on 08-28-2022 Basophil, [...] 10.8 10^3/mcL AO Workflow SS LABORATORYOrdered By: [email or web address] on 07-15-2022 Calcium [Mass/Vol] 8.4 mg/dL [...] [Moles/Vol] 6 mmol/L 3 - 13 mmol/L [facility] Calcium [Mass/Vol] 9.0 mg/dL 8.4 - 10. 4 mg/dL [facility] Chloride [Moles/Vol] 105 mmol/L 98 - 10 7 mmol/L [facility] CO2 [Moles/Vol] 26 mmol/L 22 - 30 mmol/L [facility] Creatinine [Mass/Vol] 0.71 mg/dL 0.66 - 1.25 mg/dL [facility] GFR/1.73 sq M.predicted MDRD (S/P/Bld) [Vol rate/Area] - PINF [facility] Comment on above: Calculation based on the Chronic Kidney Disease Epidemiology Collaboration (CKD-EPI) equation refit without adjustment for race Glucose [Mass/Vol] 100 mg/dL 70 - 100 mg/dL [facility] Interpretation and review of laboratory results Normal [facility] Potassium [Moles/Vol] 4.3 mmol/L 3.5 - 5.1 mmol/L [facility] Sodium [Moles/Vol] 137 mmol/L 135 - 145 mmol/L [facility] Urea nitrogen [Mass/Vol] 14 mg/dL 9 - 20 mg/dL [facility] CBC W Auto Differential pane l (Bld)Ordered By: Rhonda Biggs on 06-19-2022 Basophils (Bld) [#/Vol] 0.1 10*3/uL 0.0 - 0.2 10*3/uL [facility] Basophils/100 WBC (Bld) 1.3 % 0.0 - 2.0 % [facility] Eosinophils (Bld) [#/Vol] 0.2 10*3/uL 0.0 - 0.5 10*3/uL [facility] Eosinophils/100 WBC (Bld) 2.4 % 1.0 - 6.0 % [facility] Erythrocyte distribution width (RBC) [Ratio] 14.3 % 11.5 - 14.5 % [facility] Hematocrit (Bld) [Volume fraction] 42.3 % 40.0 - 52.0 % [facility] Hemoglobin (Bld) [Mass/Vol] 14.5 g/dL 13.0 - 18.0 g/dL [facility] Interpretation and review of laboratory results Abnormal [facility] Lymphocytes (Bld) [#/Vol] 2.9 10*3/uL 1.0 - 4.3 10*3/uL [facility] Lymphocytes/100 WBC (Bld) 31.3 % 20.0 - 40.0 % [facility] MCH (RBC) [Entitic mass] 30.7 pg 26.0 - 34.0 pg [facility] MCHC (RBC) [Mass/Vol] 34.2 % 32.0 - 36.0 % [facility] MCV (RBC) [Entitic vol] 90.0 fL 80.0 - 98.0 fL [facility] Monocytes (Bld) [#/Vol] 0.6 10*3/uL 0.0 - 0.8 10*3/uL [facility] Monocytes/100 WBC (Bld) 6.3 % 2.0 - 10.0 % [facility] Neutrophils (Bld) [#/Vol] 5.4 10*3/uL 1.8 - 7.0 10*3/uL [facility] Neutrophils/100 WBC (Bld) 58.7 % 40.0 - 80.0 % [facility] Nucleated RBC/100 WBC (Bld) [Ratio] 0.0 % [facility] Platelet mean volume (Bld) [Entitic vol] 7.0 fL Low 7.4 - 12.4 fL [facility] Platelets (Bld) [#/Vol] 296 10*3/uL 140 - 440 10*3/uL [facility] RBC (Bld) [#/Vol] 4.70 10*6/uL 4.40 - 5.9 0 10*6/uL [facility] WBC (Bld) [#/Vol] 9.2 10*3/uL 3.6 - 10.7 10*3/uL [facility] - Drug toxicology on 06-19-2022 carBAMazepine [Mass/Vol] 14.5 ug/mL High 4.0 - 12.0 ug/mL [facility] No Panel Informationon 06-19 Interpretation and review of laboratory results Abnormal [facility] EMERGENCY REPORTon 2 EMERGENCY REPORT [facility] EMERGENCY ROOM REPORT NAME ACCOUNT SEX AGE ADMIT DISCHARGE PT MED. RECORD# NUMBER DATE DATE TYPE GA [id number] M [id number] 05/22/22 05/23/22 3 PATRICK Guerrero [id number] ROOM: [facility] DATE OF : 1980 DICTATING PHYSICIAN: Patrick [...] and his mother. He works at an [employer] business. He has done that for sometime. [...] sinus mechanism without any evidence of acute MA or ischemia. Rate was 111. Emergency room [...] Patrick Vigil DO 05/23/22 07:02 JOB #: [id number] Transcribed By: am 05/23/22 13:53 Electronically signed by: E-SIGN PATRICK VIGIL DO 06/12/22 05:26 Page 2 of 2 PATRICK KOROMA Emergency Room Report A Normal [facility] CT ABDOMEN PELVIS WITH IV CO NTRAST [...] thickening. Please correlate with urinalysis for infection. [facility] Workstation ID: [id number] Dictated by: ROSAURA ROBLES on FriJun 10, 2022 2:32:31 AM EST Transcribed by: CHARLIE JIMENEZ on FriJun 10, 2022 2:35:27 AM EST Finalized by: ROSAURA ROBLES on FriJun 10, 2022 2:46:42 AM EST Normal [facility] Comment on above: Order Comment: Injur y/Trauma [...] origins. 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 No large vessel occlusion is seen. 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 OTHER: No pathologic intracranial enhancement is seen. IMPRESSION: 1. No acute intracranial abnormality. No hemorrhage or mass effect. 2. Intracranial extracranial vessels demonstrate no stenosis, thrombus, dissection, aneurysm, or large vessel occlusion. 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 3. Acute on chronic haas sinusitis [...] FriJun 06, 2022 12:50:41 AM EST Normal [facility] Comment on above: Order Comment: Injur y/Trauma [...] CRP 2.80 mg/dl High 0.00 - 0.90 [facility] Comment on above: Performed By: #### 2 61997 #### [facility],[address] [place] [address] CBC + DIFFon 05-23-2022 Baso # 0.10 x10EE3/UL Normal 0.00 - 0.10 [facility] Comment on above: Performed By: #### 2 45441 #### [facility],[address] [place] [address] Basophils/100 WBC (Bld) 1.1 % Normal 0.0 - 2.0 [facility] Comment on above: Performed By: #### 2 63466 #### [facility],[address] [place] [address] CBC + DIFF Normal [facility] Comment on above: Result Comment: CBC- COMPLETE BLOOD COUNT Performed By: #### 2 80971 #### [facility],[address] [place] [address] EO # 0.20 x10EE3/UL Normal 0.00 - 0.50 [facility] Comment on above: Performed By: #### 2 78591 #### [facility],[address] [place] [address] Eosinophils/100 WBC (Bld) 1.2 % Normal 0.0 - 7.0 [facility] Comment on above: Performed By: #### 2 55275 #### [facility],[address] [place] [address] Erythrocyte distribution width (RBC) [Ratio] 13.4 % Normal 12.0 - 15.6 [facility] Comment on above: Performed By: #### 2 46175 #### [facility],[address] [place], [place] [address] Hematocrit (Bld) [Volume fraction] 44.7 % Normal 40.0 - 52.0 [facility] Comment on above: Performed By: #### 2 56385 #### [facility],[address] [place] [address] Hemoglobin (Bld) [Mass/Vol] 15.0 g/dL Normal 13.0 - 17.5 [facility] Comment on above: Performed By: #### 2 54253 #### [facility],[address] [place] [address] Lymph # 2.80 x10EE3/UL Normal 0.80 - 2.80 [facility] Comment on above: Performed By: #### 2 12616 #### [facility],[address] [place] [address] Lymphocytes/100 WBC (Bld) 19.8 % Low 20.0 - 45.0 [facility] Comment on above: Performed By: #### 2 80638 #### [facility],[address] [place], [place] [address] MANUAL DIFF N/A Normal [facility] Comment on above: Performed By: #### 2 63400 #### [facility],[address] [place] [address] MCH (RBC) [Entitic mass] 30 pg Normal 27 - 33 [facility] Comment on above: Performed By: #### 2 70141 #### [facility],[address] [place] [address] MCHC 34 X10 3 Normal 32 - 36 [facility] Comment on above: Performed By: #### 2 34551 #### [facility],[address] [place] [address] MCV (RBC) [Entitic vol] 90 fL Normal 81 - 98 [facility] Comment on above: Performed By: #### 2 93855 #### [facility],[address] [place] [address] Benson # 1.00 x10EE3/UL Normal 0.20 - 1.00 [facility] Comment on above: Performed By: #### 2 84431 #### [facility],[address] [place] [address] MONOS % 6.8 % Normal 0.0 - 10.0 [facility] Comment on above: Performed By: #### 2 05782 #### [facility],[address] [place] [address] Morphology Alonso (Bld) [Interp] N/A Normal [facility] Comment on above: Result Comment: {CD] Performed By: #### 2 68894 #### [facility],[address] [place] [address] Neut # 10.00 x10EE3/UL High 1.50 - 7.10 [facility] Comment on above: Performed By: #### 2 67642 #### [facility],[address] [place] [address] Neutrophils/100 WBC (Bld) 71.1 % Normal 46.0 - 76.0 [facility] Comment on above: Performed By: #### 2 10185 #### [facility],[address] [place] [address] PLATELET 313 x10EE3/UL Normal 150 - 450 [facility] Comment on above: Performed By: #### 2 80240 #### [facility],[address] [place] [address] Platelet mean volume (Bld) [Entitic vol] 7.7 fL Normal 6.4 - 10.5 [facility] Comment on above: Result Comment: AUTO MATED DIFFERENTIAL Performed By: #### 2 74396 #### [facility],[address] [place] [address] RBC 4.95 x 10EE6/UL Normal 4.50 - 6.00 [facility] Comment on above: Performed By: #### 2 55286 #### [facility],[address] [place] [address] WBC 14.0 x 10EE3/UL High 4.5 - 10.8 [facility] Comment on above: Performed By: #### 2 95806 #### [facility],[address] [place] [address] CMP with eGFRon 05-23-2022 AGE 42 years Normal [facility] Comment on above: Performed By: #### 2 27899 #### [facility],[address] [place] [address] Albumin [Mass/Vol] 3.5 g/dL Normal 3.4 - 5.0 [facility] Comment on above: Performed By: #### 2 57672 #### [facility],[address] [place] [address] Albumin/Globulin [Mass ratio] 0.9 {ratio} Normal 0.9 - 1.6 [facility] Comment on above: Performed By: #### 2 02124 #### [facility],[address] [place] [address] ALK PHOS 44 U/L Low 46 - 116 [facility] Comment on above: Performed By: #### 2 54702 #### [facility],[address] [place] [address] ALT [Catalytic activity/Vol] 21 U/L Normal 16 - 63 [facility] Comment on above: Performed By: #### 2 20931 #### [facility],[address] [place] [address] Anion gap [Moles/Vol] 10 mmol/L Normal 10 - 20 [facility] Comment on above: Performed By: #### 2 16755 #### [facility],[address] [place] [address] AST [Catalytic activity/Vol] 16 U/L Normal 15 - 37 [facility] Comment on above: Performed By: #### 2 47628 #### [facility],[address] [place] [address] B/C RATIO 11 ratio Normal 0 - 30 [facility] Comment on above: Performed By: #### 2 29684 #### [facility],[address] [place] [address] Bilirubin [Mass/Vol] 0.2 mg/dL Normal 0.2 - 1.0 [facility] Comment on above: Performed By: #### 2 41529 #### [facility],[address] [place] [address] Calcium [Mass/Vol] 9.0 mg/dL Normal 8.5 - 10.1 [facility] Comment on above: Performed By: #### 2 45767 #### [facility],[address] [place] [address] Chloride [Moles/Vol] 101 mmol/L Normal 98 - 107 [facility] Comment on above: Performed By: #### 2 56706 #### [facility],[address] [place] [address] CMP with eGFR Normal [facility] Comment on above: Result Comment: COMP REHENSIVE METABOLIC PANEL Performed By: #### 2 21468 #### [facility],[address] [place] [address] CO2 [Moles/Vol] 30.2 mmol/L Normal 21.0 - 32.0 [facility] Comment on above: Performed By: #### 2 42380 #### [facility],[address] [place] [address] Creatinine [Mass/Vol] 0.91 mg/dL Normal 0.70 - 1.30 [facility] Comment on above: Performed By: #### 2 15757 #### [facility],[address] [place] [address] GFR/1.73 sq M.predicted among non-blacks MDRD (S/P/Bld) [Vol rate/Area] mL/min/{1.73_m2} Normal 60 - 999 [facility] Comment on above: Performed By: #### 2 29766 #### [facility],[address] [place], [place] [address] Result Comment: ACCO RDING TO THE NATIONAL KIDNEY DISEASE EDUCATION PROGRAM(NKDE), A NORMAL eGFR IS A VALUE GREATER THAN OR EQUAL TO 60 ML/MIN/1.73 SQ METERS. CHRONIC KIDNEY DISEASE: <60mL/MIN/1.73 SQ METERS KIDNEY FAILURE: <15mL/MIN/1.73 SQ METERS THIS TEST SHOULD ONLY BE USED FOR PATIENTS 18 YEARS OF AGE AND OLDER. Globulin (S) [Mass/Vol] 3.7 g/dL Normal 1.5 - 3.8 [facility] Comment on above: Performed By: #### 2 44960 #### [address] [address] Glucose [Mass/Vol] 104 mg/dL Normal 74 - 106 [facility] Comment on above: Performed By: #### 2 90262 #### [facility],[address] [place] [address] Potassium [Moles/Vol] 3.8 mmol/L Normal 3.5 - 5.1 [facility] Comment on above: Performed By: #### 2 85359 #### [address] [address] Protein [Mass/Vol] 7.2 g/dL Normal 6.4 - 8.2 [facility] Comment on above: Performed By: #### 2 34883 #### [facility],[address] [place] [address] Sodium [Moles/Vol] 137 mmol/L Normal 136 - 145 [facility] Comment on above: Performed By: #### 2 53473 #### [facility],[address] [place] [address] Urea nitrogen [Mass/Vol] 10 mg/dL Normal 7 - 18 [facility] Comment on above: Performed By: #### 2 59917 #### [facility],[address] [place] [address] BRAIN W/O CONTRASTon 12-0 CT BRAIN W/O CONTRAST [place] [address] Patient: PATRICK KOROMA Phone#: : [phone] Age: 42 Gender: M Pt. Type: ER Account: [id number] Location: [id number] Ordering: DR. PATRICK VIGIL Exam Date: 05/22/2022/23:10 Family Phys: Charge Code: [id number] Physician: Terrell Order #: [id number] Dose#: [id number] PROCEDURE: CT BRAIN WITHOUT CONTRAST COMPARISON: [facility], CT, BRAIN W/O CON, 12/03/2011, [...] Waters MD on 05/23/2022 at 14:41 Normal [facility] SEDRATEon 05-23-2022 SEDRATE 13 mm/hr Normal 0 - 20 [facility] Comment on above: Performed By: #### 2 14684 #### [facility],[address] [place] [address] TROPONIN I, HIGH SENSITIVITY on 05-23-2022 HS TROPONIN 4.4 pg/mL Normal 0.0 - 76.2 [facility] Comment on above: Performed By: #### 2 72332 #### [facility],[address] [place] [address] XR SHOULDER RIGHT (MIN 2 VIE WS)on [...] Rosas Silva MD 04/25/22 Final result Normal [facility] Comment on above: Order Comment: Reaso n for exam:->ac joint deformity/pain No acute abnormality . [facility] EXAMINATION: THREE XRAY VIEWS OF THE [...] is unremarkable. IMPRESSION: No acute abnormality. RICKIE Taasera Phone: Radiology Study observation (narrative) RICKIE CORTEZ [email or web address] Phone: XR SHOULDER RIGHT (MIN 2 VIE WS)Ordered By: Rosas Silva on 04-25-2022 RICKIE Taasera Phone: XR WRIST RIGHT (MIN 3 VIEWS) [...] Abdifatah Child DO 04/03/22 Final result Normal [facility] Comment on above: Order Comment: Reaso n [...] osseous abnormality involving the right wrist. RICKIE [employer] Phone: Radiology Study observation (narrative) RICKIE CORTÉS [employer] Phone: XR WRIST RIGHT (MIN 3 VIEWS) Ordered By: Abdifatah Child on 04-03-2022 RICKIE Taasera Phone: CT CERVICAL SPINE WO CONTRAS Ton 03-08-2022 Patient Name: PATRICK KOROMA Computed Tomography ACCESSION EXAM DATE/TIME PROCEDURE ORDERING PROVIDER [id number] 03/08/2022 01:[address] Spine Cervical w/o [id number] -DARRION, JOSELUIS Contrast CPT code 82942 Reason For Exam (CT Spine Cervical w/o [...] Tomography ACCESSION EXAM DATE/TIME PROCEDURE ORDERING PROVIDER [id number] 03/08/2022 01:[address] Spine Cervical w/o [id number] -DARRION, JOSELUIS Contrast CPT code 72591 Reason For Exam (CT Spine Cervical w/o [...] and Time: 03/08/2022 1:50 [facility] Work Phone: [facility] Work Phone: CT HEAD WO CONTRASTon 2021 [id number] Computed Tomography ACCESSION EXAM DATE/TIME PROCEDURE ORDERING PROVIDER [id number] 03/08/2022 01:[address] Head or Brain w/o [id number] -DARRION, JOSELUIS Contrast CPT code 09805 Reason For Exam (CT Head or Brain [...] Tomography ACCESSION EXAM DATE/TIME PROCEDURE ORDERING PROVIDER [id number] 03/08/2022 01:[address] Head or Brain w/o [id number] -DARRION, JOSELUIS Contrast CPT code 91961 Reason For Exam (CT Head or Brain [...] KEVIN Transcribed Date and Time: 03/08/2022 1:48 [facility] Work Phone: CT HEAD WO CONTRASTOrdered B y: Shankar Haas on 03-08-2022 [facility] Work Phone: CT Head or Brain w/o Contras ton 03-08-2022 CT Head or Brain w/o Contrast Patient Name: PATRICK KOROMA Computed Tomography ACCESSION EXAM DATE/TIME PROCEDURE ORDERING PROVIDER [id number] 03/08/2022 01:[address] Head or Brain w/o [id number] -DARRION, JOSELUIS Contrast CPT code 46069 Reason For Exam (CT Head or Brain [...] Date and Time: 03/08/2022 1:48 [address] [facility] CT Spine Cervical w/o Contra pham 03-08-2022 CT Spine Cervical w/o Contrast Patient Name: PATRICK KOROMA [employer] ACCESSION EXAM DATE/TIME PROCEDURE ORDERING PROVIDER [id number] 03/08/2022 01:[address] Spine Cervical w/o [id number] -DARRION, JOSELUIS Contrast CPT code 69016 Reason For Exam (CT Spine Cervical w/o [...] Date and Time: 03/08/2022 1:50 Normal [facility] ED Provider Noteon ED Provider [facility]NCOUNTER [...] plan and expressed understanding. 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 Normal [facility] No Panel Informationon 03-08 Radiology Study observation (narrative) [facility] Work Phone: Absolute lymphocyte counton 01-01-2022 Lymphocytes Auto (Unsp spec) [#/Vol] 2.19 10*3/uL 0.83-4.51 [facility] Work Phone: Basophil percentageon 2021 Basophils/100 WBC (Bld) 0.5 % 0-1 [facility] Work Phone: Bilirubin [Mass/Vol] 0.20 mg/dL 0.20-1.00 [facility] Work Phone: Comment on above: For patients on eltr ombopag therapy, use of Dimension [place] TBIL is not recommended. Chloride [Moles/Vol] 111 mmol/L 98-107 [facility] Work Phone: Eosinophils/100 WBC (Bld) 1.6 % 0-5 [facility] Work Phone: Glucose [Mass/Vol] 103 mg/dL 74-[address] [facility] Work Phone: Comment on above: Fasting Glucose resu lt from 100 to 125 mg/dL suggests IMPAIRED HOMEOSTASIS per A.D.A. criteria. Neutrophils (Bld) [#/Vol] 7.1 10*3/uL 2.0-7.7 [facility] Work Phone: Neutrophils/100 WBC (Bld) 70.0 % 47-70 [facility] Work Phone: Potassium [Moles/Vol] 3.9 mmol/L 3.5-5.1 [facility] Work Phone: Protein [Mass/Vol] 7.1 g/dL 6.4-8.[address] [facility] Work Phone: Sodium [Moles/Vol] 140 mmol/L 136-[address] [facility] Work Phone: WBC (Bld) [#/Vol] 10.2 10*3/uL 4.4-11.0 [facility] Work Phone: Blood erythrocytes count (nu mber/volume)on 01-01-2022 RBC (Bld) [#/Vol] 4.65 10*6/uL 4.6-6.2 [facility] Work Phone: Blood hemoglobin measurement (mass/volume)on 01-01-2022 Hemoglobin (Bld) [Mass/Vol] 14.1 g/dL 13.0-16.5 [facility] Work Phone: Blood lymphocytes/100 leukoc yteson 01-01-2022 Lymphocytes/100 WBC (Bld) 21.6 % 19-41 [facility] Work Phone: Blood monocytes/100 leukocyt eson 01-01-2022 Monocytes/100 WBC (Bld) 5.8 % 0-10 [facility] Work Phone: Blood platelet mean volumeon 01-01-2022 Platelet mean volume (Bld) [Entitic vol] 9.2 fL 6.2-12.0 [facility] Work Phone: Determination of erythrocyte mean corpuscular volume (MCV)on 01-01-2022 MCV (RBC) [Entitic vol] 92.7 fL 80-94 [facility] Work Phone: Direct bilirubinon 2 Bilirubin.direct [Mass/Vol] 0.09 mg/dL 0.00-0.30 [facility] Work Phone: Hematocrit Auto (Bld) [Volum e fraction]on 01-01-2022 Hematocrit (Bld) [Volume fraction] 43.1 % 40-54 [facility] Work Phone: INR in Blood by Coagulation assayon 01-01-2022 INR Coag (Bld) [Relative time] 0.9 {INR} [facility] Work Phone: Laboratory - Chemistry and C hemistry - challengeon 01-01-2022 ALP [Catalytic activity/Vol] 43 U/L 45-117 [facility] Work Phone: ALT [Catalytic activity/Vol] 27 U/L 16-61 [facility] Work Phone: CO2 [Moles/Vol] 25.0 mmol/L 21.0-32.0 [facility] Work Phone: Globulin (S) [Mass/Vol] 3.8 g/dL 2.2-4.2 [facility] Work Phone: Urea nitrogen/Creatinine [Mass ratio] 9.2 mg/mg 10-20 [facility] Work Phone: Laboratory - Coagulationon 0 01-01-2022 aPTT Coag (Bld) [Time] 25.8 s 24.1-36.2 Wo marco a [facility] Work Phone: PT Coag (PPP) [Time] 11.9 s 11.7-14.9 [facility] Work Phone: Laboratory - Hematology and Cell countson 01-01-2022 Erythrocyte distribution width (RBC) [Entitic vol] 43.3 fL 35.1-43.9 [facility] Work Phone: Erythrocyte distribution width (RBC) [Ratio] 12.7 % 11.6-14.6 [facility] Work Phone: Immature granulocytes/100 WBC (Bld) 0.500 % 0.0-0.9 [facility] Work Phone: Comment on above: IG% - Immature Granu locytes (promyelocytes, myelocytes and metamyelocytes) > 1% indicates that a LEFT SHIFT is Present. MCH (RBC) [Entitic mass] 30.3 pg 27.0-32.0 [facility] Work Phone: Nucleated RBC/100 WBC (Bld) [Ratio] 0 % 0-5 [facility] Work Phone: MCHC Auto (RBC) [Mass/Vol]on 01-01-2022 MCHC (RBC) [Mass/Vol] 32.7 g/dL 32-36 [facility] Work Phone: No Panel Informationon 01-01 Estimated Creatinine Clearance Calc 125.00 ml/min [facility] Work Phone: Estimated GFR (MDRD) Amer 123 mL/min >60 [facility] Work Phone: Comment on above: GFR Calc Estimated GFR (MDRD) Non-Af Amer 101 mL/min >60 [facility] Work Phone: Comment on above: Non- GFR Calc Platelets bldon 01-01-2022 Platelets (Bld) [#/Vol] 328 10*3/uL 150-450 [facility] Work Phone: Serum or plasma albumin za urement (mass/volume)on 01-01-2022 Albumin [Mass/Vol] 3.3 g/dL 3.2-5.[address] [facility] Work Phone: Serum or plasma calcium za urement (mass/volume)on 01-01-2022 Calcium [Mass/Vol] 9.1 mg/dL 8.5-10.[address] [facility] Work Phone: Serum or plasma creatinine m easurement (mass/volume)on 01-01-2022 Creatinine [Mass/Vol] 0.87 mg/dL 0.70-1.30 [facility] Work Phone: Comment on above: The validity of the calculated GFR & GFRAA in patients over 70 years has not been determined. Clinical correlation is essential. Serum or plasma urea nitroge n measurement (mass/volume)on 01-01-2022 Urea nitrogen [Mass/Vol] 8 mg/dL 7-18 [facility] Work Phone: Thin prep Papanicolaou smear with manual screeningon 01-01-2022 Thin prep Papanicolaou smear with manual screening 22 U/L 15-37 [facility] Work Phone: Thin prep Papanicolaou smear with manual screening 4 5-15 [facility] Work Phone: LABORATORYOrdered By: Sara Echeverria [...] 11-15 Calcium [Mass/Vol] 8.8 mg/dL Normal 8.4-10.4 [facility] Comment on above: Performed By: #### L ACT3, MG3, BMP3, HEMDF #### [address] [address] [place] [address] Glucose [Mass/Vol] 99 mg/dL Normal 70-100 [facility] Comment on above: Performed By: #### L ACT3, MG3, BMP3, HEMDF #### [facility] [address] [place] [address] Anion gap [Moles/Vol] 6 mmol/L Normal 3-13 [facility] Comment on above: Performed By: #### L ACT3, MG3, BMP3, HEMDF #### [facility] [address] [place] [address] CO2 [Moles/Vol] 27 mmol/L Normal 22-30 [facility] Comment on above: Performed By: #### L ACT3, MG3, BMP3, HEMDF #### [facility] [address] [place] [address] Creatinine [Mass/Vol] 0.69 mg/dL Normal 0.52-1.25 [facility] Comment on above: Performed By: #### L ACT3, MG3, BMP3, HEMDF #### [address] [address] [place] [address] eGFR OTHER > 90.0 Normal >60 [facility] Comment on above: Result Comment: KDIG O [...] L ACT3, MG3, BMP3, HEMDF #### [facility] [address] [place] [address] GFR/1.73 sq M.predicted among blacks MDRD (S/P/Bld) [Vol rate/Area] mL/min/{1.73_m2} Normal >60 [facility] Comment on above: Performed By: #### L ACT3, MG3, BMP3, HEMDF #### [facility] [address] [place] [address] Urea nitrogen [Mass/Vol] 5 mg/dL Low 7-17 [facility] Comment on above: Performed By: #### L ACT3, MG3, BMP3, HEMDF #### [facility] [address] [place] [address] Chloride [Moles/Vol] 105 mmol/L Normal 98-107 [facility] Comment on above: Performed By: #### L ACT3, MG3, BMP3, HEMDF #### [facility] [address] [place] [address] Potassium [Moles/Vol] 3.8 mmol/L Normal 3.5-5.1 [facility] Comment on above: Performed By: #### L ACT3, MG3, BMP3, HEMDF #### [facility] [address] [place] [address] Sodium [Moles/Vol] 138 mmol/L Normal 135-145 [facility] Comment on above: Performed By: #### L ACT3, MG3, BMP3, HEMDF #### [facility] [address] [place] [address] CT Abdomen/Pelvis w/ Contras ton 12-05-2021 CT Abdomen/Pelvis w/ Contrast Patient Name: PATRICK KOROMA Computed Tomography ACCESSION EXAM DATE/TIME PROCEDURE ORDERING PROVIDER [id number] 12/05/2021 14:[address] Abdomen/Pelvis w/ IV [id number] -[id number], Contrast (IV Onl MARTA CPT code 58516 Q9967 Reason For Exam (CT Abdomen/Pelvis w/ [...] Transcribed Date and Time: 12/05/2021 2:32 Normal [facility] Hemogram w/ Autodiffon 12-05 Abs Baso Cnt 0.1 10*3/uL Normal 0.0-0.2 [facility] Comment on above: Performed By: #### L ACT3, MG3, BMP3, HEMDF #### [address] [address] [place] [address] Abs Neutrophile Cnt 7.3 10*3/uL High 1.8-7.0 [facility] Comment on above: Performed By: #### L ACT3, MG3, BMP3, HEMDF #### [address] [address] [place] [address] Basophils/100 WBC (Bld) 0.7 % Normal 0.0-2.0 [facility] Comment on above: Performed By: #### L ACT3, MG3, BMP3, HEMDF #### [address] [address] [place] [address] Eosinophils (Bld) [#/Vol] 0.2 10*3/uL Normal 0.0-0.5 [facility] Comment on above: Performed By: #### L ACT3, MG3, BMP3, HEMDF #### [address] [address] [place] [address] Eosinophils/100 WBC (Bld) 2.0 % Normal 1.0-6.0 [facility] Comment on above: Performed By: #### L ACT3, MG3, BMP3, HEMDF #### [address] [address] Erythrocyte distribution width (RBC) [Ratio] 13.1 % Normal 11.5-14.5 [facility] Comment on above: Performed By: #### L ACT3, MG3, BMP3, HEMDF #### [address] [address] Granulocytes/100 WBC (Bld) 76.6 % Normal 40.0-80.0 [facility] Comment on above: Performed By: #### L ACT3, MG3, BMP3, HEMDF #### [address] [address] Hematocrit (Bld) [Volume fraction] 39.4 % Low 40.0-52.0 [facility] Comment on above: Performed By: #### L ACT3, MG3, BMP3, HEMDF #### [address] [address] Hemoglobin (Bld) [Mass/Vol] 13.6 g/dL Normal 13.0-18.0 [facility] Comment on above: Performed By: #### L ACT3, MG3, BMP3, HEMDF #### [address] [address] Lymphocytes (Bld) [#/Vol] 1.3 10*3/uL Normal 1.0-4.3 [facility] Comment on above: Performed By: #### L ACT3, MG3, BMP3, HEMDF #### [address] [address] Lymphocytes/100 WBC (Bld) 13.9 % Low 20.0-40.0 [facility] Comment on above: Performed By: #### L ACT3, MG3, BMP3, HEMDF #### [address] [address] MCH (RBC) [Entitic mass] 31.6 pg Normal 26.0-34.0 [facility] Comment on above: Performed By: #### L ACT3, MG3, BMP3, HEMDF #### [address] [address] MCHC 34.5 % Normal 32.0-36.0 [facility] Comment on above: Performed By: #### L ACT3, MG3, BMP3, HEMDF #### [address] [address] MCV (RBC) [Entitic vol] 91.7 fL Normal 80.0-98.0 [facility] Comment on above: Performed By: #### L ACT3, MG3, BMP3, HEMDF #### [address] [address] Monocytes (Bld) [#/Vol] 0.7 10*3/uL Normal 0.0-0.8 [facility] Comment on above: Performed By: #### L ACT3, MG3, BMP3, HEMDF #### [address] [address] Monocytes/100 WBC (Bld) 6.8 % Normal 2.0-10.0 [facility] Comment on above: Performed By: #### L ACT3, MG3, BMP3, HEMDF #### [address] [address] Platelet mean volume (Bld) [Entitic vol] 7.4 fL Normal 7.4-12.4 [facility] Comment on above: Result Comment: MPV is a calculated measurement using platelet volume ratio. Performed By: #### L ACT3, MG3, BMP3, HEMDF #### [address] [address] Platelets (Bld) [#/Vol] 389 10*3/uL Normal 140-440 [facility] Comment on above: Performed By: #### L ACT3, MG3, BMP3, HEMDF #### [address] [address] RBC (Bld) [#/Vol] 4.30 10*6/uL Low 4.40-5.90 [facility] Comment on above: Performed By: #### L ACT3, MG3, BMP3, HEMDF #### [address] [place] [address] WBC (Bld) [#/Vol] 9.6 10*3/uL Normal 3.6-10.7 [facility] Comment on above: Performed By: #### L ACT3, MG3, BMP3, HEMDF #### [address] [place] [address] Lactic Acidon 12-05-2021 Lactate [Moles/Vol] 1.1 mmol/L Normal 0.7-2.0 [facility] Comment on above: Performed By: #### L ACT3, MG3, BMP3, HEMDF #### [address] [place] [address] Magnesiumon 12-05-2021 Magnesium [Mass/Vol] 2.2 mg/dL Normal 1.6-2.3 [facility] Comment on above: Performed By: #### L ACT3, MG3, BMP3, HEMDF #### [address] [place] [address] LABORATORYOrdered By: Sara Echeverria on 11-30-2021 Basophil, [...] Summary Documentson 12-29-2016 Patient Summary Documents Normal [facility] Emergency Room Note on 12-24-2016 [place] [facility] Note Normal [facility] Patient Summary Documentson 12-23-2016 Patient Summary Documents Normal [facility] XR WRIST COMPLETE RIGHTon XR WRIST COMPLETE [...] PM Sign Date: 12/23/2016 4:46:15 PM Normal [facility] Emergency Room Note on 12-16-2016 [place] [facility] Note Normal [facility] Patient Summary Documentson 12-16-2016 Patient Summary Documents Normal [facility] Vital Signs Date Time Vital Sign Value Performing Clinician Berkley durham 03-24-2025 22:32-0400 Body temperature 98.4 [degF] Viola Starkey BIODIESEL TECHNOLOGY MANAGER-C Work Phone: [facility] 03-24-2025 22:32-0400 Diastolic blood pressure 96 mm[Hg] Viola Starkey BIODIESEL TECHNOLOGY MANAGER-C Work Phone: [facility] 03-24-2025 22:32-0400 Heart rate 86 /min Viola Starkey BIODIESEL TECHNOLOGY MANAGER-C Work Phone: [facility] 03-24-2025 22:32-0400 Respiratory rate 18 /min Viola Starkey BIODIESEL TECHNOLOGY MANAGER-C Work Phone: [facility] 03-24-2025 22:32-0400 SaO2% (BldA) [Mass fraction] 98 % Viola Starkey BIODIESEL TECHNOLOGY MANAGER-C Work Phone: [facility] 03-24-2025 22:32-0400 Systolic blood pressure 134 mm[Hg] Viola Starkey BIODIESEL TECHNOLOGY MANAGER-C Work Phone: [facility] 03-24-2025 19:54-0400 Body height 187.96 cm Viola Starkey BIODIESEL TECHNOLOGY MANAGER-C Work Phone: [facility] 03-24-2025 19:54-0400 Body mass index (BMI) [Ratio] 44.9 kg/m2 Viola Starkey BIODIESEL TECHNOLOGY MANAGER-C Work Phone: [facility] 03-24-2025 19:54-0400 Body weight 158.78 kg Viola Starkey BIODIESEL TECHNOLOGY MANAGER-C Work Phone: [facility] 03-08-2025 00:56-0400 Body temperature 98 [degF] Viola Starkey BIODIESEL TECHNOLOGY MANAGER-C Work Phone: [facility] 03-08-2025 00:56-0400 Diastolic blood pressure 81 mm[Hg] Viola Starkey BIODIESEL TECHNOLOGY MANAGER-C Work Phone: [facility] 03-08-2025 00:56-0400 Heart rate 70 /min Viola Starkey BIODIESEL TECHNOLOGY MANAGER-C Work Phone: [facility] 03-08-2025 00:56-0400 Respiratory rate 16 /min Viola Starkey BIODIESEL TECHNOLOGY MANAGER-C Work Phone: [facility] 03-08-2025 00:56-0400 SaO2% (BldA) [Mass fraction] 98 % Viola Starkey BIODIESEL TECHNOLOGY MANAGER-C Work Phone: [facility] 03-08-2025 00:56-0400 Systolic blood pressure 122 mm[Hg] Viola Starkey BIODIESEL TECHNOLOGY MANAGER-C Work Phone: [facility] 03-07-2025 22:38-0400 Body height 187.96 cm Viola Starkey BIODIESEL TECHNOLOGY MANAGER-C Work Phone: [facility] 03-07-2025 22:38-0400 Body mass index (BMI) [Ratio] 44.1 kg/m2 Viola Starkey BIODIESEL TECHNOLOGY MANAGER-C Work Phone: [facility] 03-07-2025 22:38-0400 Body weight 156 kg Viola Starkey BIODIESEL TECHNOLOGY MANAGER-C Work Phone: [facility] 02-27-2025 23:00-0400 Body temperature 98 [degF] Viola Starkey BIODIESEL TECHNOLOGY MANAGER-C Work Phone: [facility] 02-27-2025 23:00-0400 Diastolic blood pressure 80 mm[Hg] Viola Starkey BIODIESEL TECHNOLOGY MANAGER-C Work Phone: [facility] 02-27-2025 23:00-0400 Heart rate 73 /min Viola Starkey BIODIESEL TECHNOLOGY MANAGER-C Work Phone: [facility] 02-27-2025 23:00-0400 Respiratory rate 16 /min Viola Starkey BIODIESEL TECHNOLOGY MANAGER-C Work Phone: [facility] 02-27-2025 23:00-0400 SaO2% (BldA) [Mass fraction] 98 % Viola Starkey BIODIESEL TECHNOLOGY MANAGER-C Work Phone: [facility] 02-27-2025 23:00-0400 Systolic blood pressure 133 mm[Hg] Viola Starkey BIODIESEL TECHNOLOGY MANAGER-C Work Phone: [facility] 02-27-2025 20:51-0400 Body height 187.96 cm Viola Starkey BIODIESEL TECHNOLOGY MANAGER-C Work Phone: [facility] 02-27-2025 20:51-0400 Body mass index (BMI) [Ratio] 44.3 kg/m2 Viola Starkey BIODIESEL TECHNOLOGY MANAGER-C Work Phone: [facility] 02-27-2025 20:51-0400 Body weight 156.63 kg Viola Starkey BIODIESEL TECHNOLOGY MANAGER-C Work Phone: [facility] 02-18-2025 00:05-0400 Body temperature 98.7 [degF] Viola Starkey BIODIESEL TECHNOLOGY MANAGER-C Work Phone: [facility] 02-18-2025 00:05-0400 Diastolic blood pressure 69 mm[Hg] Viola Starkey BIODIESEL TECHNOLOGY MANAGER-C Work Phone: [facility] 02-18-2025 00:05-0400 Heart rate 90 /min Viola Starkey BIODIESEL TECHNOLOGY MANAGER-C Work Phone: [facility] 02-18-2025 00:05-0400 Respiratory rate 18 /min Viola Starkey BIODIESEL TECHNOLOGY MANAGER-C Work Phone: [facility] 02-18-2025 00:05-0400 SaO2% (BldA) [Mass fraction] 96 % Viola Starkey BIODIESEL TECHNOLOGY MANAGER-C Work Phone: [facility] 02-18-2025 00:05-0400 Systolic blood pressure 136 mm[Hg] Viola Starkey BIODIESEL TECHNOLOGY MANAGER-C Work Phone: [facility] 02-17-2025 21:21-0400 Body height 187.96 cm Viola Starkey BIODIESEL TECHNOLOGY MANAGER-C Work Phone: [facility] 02-17-2025 21:21-0400 Body mass index (BMI) [Ratio] 43.9 kg/m2 Viola Starkey BIODIESEL TECHNOLOGY MANAGER-C Work Phone: [facility] 02-17-2025 21:21-0400 Body weight 155.12 kg Viola Starkey BIODIESEL TECHNOLOGY MANAGER-C Work Phone: [facility] 01-26-2025 00:05-0400 Body temperature 98 [degF] Viola Starkey BIODIESEL TECHNOLOGY MANAGER-C Work Phone: [facility] 01-26-2025 00:05-0400 Diastolic blood pressure 90 mm[Hg] Viola Starkey BIODIESEL TECHNOLOGY MANAGER-C Work Phone: [facility] 01-26-2025 00:05-0400 Heart rate 78 /min Viola Starkey BIODIESEL TECHNOLOGY MANAGER-C Work Phone: [facility] 01-26-2025 00:05-0400 Respiratory rate 16 /min Viola Fernandessey BIODIESEL TECHNOLOGY MANAGER-C Work Phone: [facility] 01-26-2025 00:05-0400 SaO2% (BldA) [Mass fraction] 97 % Viola Fernandessey BIODIESEL TECHNOLOGY MANAGER-C Work Phone: [facility] 01-26-2025 00:05-0400 Systolic blood pressure 140 mm[Hg] Viola Starkey BIODIESEL TECHNOLOGY MANAGER-C Work Phone: [facility] 01-25-2025 22:23-0400 Body height 187.96 cm Viola Starkey BIODIESEL TECHNOLOGY MANAGER-C Work Phone: [facility] 01-25-2025 22:23-0400 Body mass index (BMI) [Ratio] 43.9 kg/m2 Viola Starkey BIODIESEL TECHNOLOGY MANAGER-C Work Phone: [facility] 01-25-2025 22:23-0400 Body weight 155.12 kg Viola Starkey BIODIESEL TECHNOLOGY MANAGER-C Work Phone: [facility] 12-29-2024 22:56-0400 Body temperature 98.6 [degF] Viola Starkey BIODIESEL TECHNOLOGY MANAGER-C Work Phone: [facility] 12-29-2024 22:56-0400 Diastolic blood pressure 94 mm[Hg] Viola Starkey BIODIESEL TECHNOLOGY MANAGER-C Work Phone: [facility] 12-29-2024 22:56-0400 Heart rate 79 /min Viola Starkey BIODIESEL TECHNOLOGY MANAGER-C Work Phone: [facility] 12-29-2024 22:56-0400 Respiratory rate 18 /min Viola Fernandessey BIODIESEL TECHNOLOGY MANAGER-C Work Phone: [facility] 12-29-2024 22:56-0400 SaO2% (BldA) [Mass fraction] 98 % Viola Fernandessey BIODIESEL TECHNOLOGY MANAGER-C Work Phone: [facility] 12-29-2024 22:56-0400 Systolic blood pressure 159 mm[Hg] Viola Satrkey BIODIESEL TECHNOLOGY MANAGER-C Work Phone: [facility] 12-29-2024 21:21-0400 Body height 187.96 cm Viola Lalito BIODIESEL TECHNOLOGY MANAGER-C Work Phone: [facility] 12-29-2024 21:21-0400 Body mass index (BMI) [Ratio] 44.1 kg/m2 Viola Starkey BIODIESEL TECHNOLOGY MANAGER-C Work Phone: [facility] 12-29-2024 21:21-0400 Body weight 156.03 kg Viola Starkey BIODIESEL TECHNOLOGY MANAGER-C Work Phone: [facility] 12-08-2024 23:34-0400 Body height 187.[address] Cristian Tate Work Phone: [facility] 12-08-2024 23:34-0400 Body mass index (BMI) [Ratio] 44.6 kg/m2 Dr. Cristian Tate Work Phone: [facility] 12-08-2024 23:34-0400 Body temperature 98 [degF] Dr. Cristian Tate Work Phone: [facility] 12-08-2024 23:34-0400 Body weight 157.[address] Cristian Guadalupe DO Work Phone: 4(332)778-329411 [place] [address] 12-08-2024 23:34-0400 Diastolic blood pressure 105 mm[Hg] Dr. Cristian Tate Work Phone: 2(357)505-567911 [place] [address] 12-08-2024 23:34-0400 Heart rate 104 /min Dr. Cristian Tate Work Phone: 0(820)985-602911 [place] [address] 12-08-2024 23:34-0400 Respiratory rate 22 /min Dr. Cristian Guadalupe DO Work Phone: 4(016)496-254811 [place] [address] 12-08-2024 23:34-0400 SaO2% (BldA) [Mass fraction] 99 % Dr. Cristian Tate Work Phone: 3(554)811-786411 [place] [address] 12-08-2024 23:34-0400 Systolic blood pressure 175 mm[Hg] Dr. Cristian Tate Work Phone: 3(992)754-346311 [place] [address] 12-07-2024 00:21-0400 Body temperature 96.9 [degF] Dr. Critsian Tate Work Phone: 9(169)754-622711 [place] [address] 12-07-2024 00:21-0400 Diastolic blood pressure 92 mm[Hg] Dr. Cristian Tate Work Phone: 4(441)333-875911 [place] [address] 12-07-2024 00:21-0400 Heart rate 103 /min Dr. Cristian Tate Work Phone: 0(771)210-948711 [place] [address] 12-07-2024 00:21-0400 Respiratory rate 16 /min Dr. Cristian Tate Work Phone: 6(626)579-849711 [place] [address] 12-07-2024 00:21-0400 SaO2% (BldA) [Mass fraction] 99 % Dr. Cristian Tate Work Phone: 6(695)074-185111 [place] [address] 12-07-2024 00:21-0400 Systolic blood pressure 137 mm[Hg] Dr. Cristian Tate Work Phone: 2(991)803-467811 [place] [address] 12-06-2024 23:19-0400 Body height 187.[address] Cristian Tate Work Phone: 5(051)615-950711 [place] [address] 12-06-2024 23:19-0400 Body mass index (BMI) [Ratio] 43.9 kg/m2 Dr. Cristian Tate Work Phone: 5(000)719-167511 [place] [address] 12-06-2024 23:19-0400 Body weight 155.[address] Cristian Tate Work Phone: 4(373)218-665311 [place] [address] 09-19-2024 22:25-0400 Body temperature 97 [degF] Dr. Cristian Tate Work Phone: 3(207)377-425316 [place] [address] 09-19-2024 22:25-0400 Diastolic blood pressure 93 mm[Hg] Dr. Cristian Tate Work Phone: 1(902)158-152911 [place] [address] 09-19-2024 22:25-0400 Heart rate 99 /min Dr. Cristian Tate Work Phone: 0(893)549-856211 [place] [address] 09-19-2024 22:25-0400 Respiratory rate 16 /min Dr. Cristian Tate Work Phone: 8(101)862-710411 [place] [address] 09-19-2024 22:25-0400 SaO2% (BldA) [Mass fraction] 97 % Dr. Cristian Tate Work Phone: 6(943)550-876911 [place] [address] 09-19-2024 22:25-0400 Systolic blood pressure 136 mm[Hg] Dr. Cristian Tate Work Phone: 7(982)690-384011 [place] [address] 09-19-2024 21:32-0400 Body mass index (BMI) [Ratio] 44.7 kg/m2 Dr. Cristian Tate Work Phone: 0(329)996-296211 [place] [address] 09-19-2024 21:32-0400 Body weight 158.[address] Cristian Tate Work Phone: 2(620)042-651311 [place] [address] 09-19-2024 21:16-0400 Body height 187.[address] Cristian Tate Work Phone: [phone] [place] [address] 08-24-2024 22:40-0400 Body temperature 99.1 [degF] No Primary Care Physician [facility] 08-24-2024 22:40-0400 Diastolic blood pressure 70 mm[Hg] No Primary Care Physician [facility] 08-24-2024 22:40-0400 Heart rate 80 /min No Primary Care Physician [facility] 08-24-2024 22:40-0400 Respiratory rate 16 /min No Primary Care Physician [facility] 08-24-2024 22:40-0400 SaO2% (BldA) [Mass fraction] 100 % No Primary Care Physician [facility] 08-24-2024 22:40-0400 Systolic blood pressure 118 mm[Hg] No Primary Care Physician [facility] 08-24-2024 21:04-0400 Body height 187.96 cm No Primary Care Physician [facility] 08-24-2024 21:04-0400 Body mass index (BMI) [Ratio] 44.1 kg/m2 No Primary Care Physician [facility] 08-24-2024 21:04-0400 Body weight 155.99 kg No Primary Care Physician [facility] 08-13-2024 12:44-0500 Body height 188 cm Stephon Benavides MD Work Phone: [facility] 08-13-2024 12:44-0500 Body mass index (BMI) [Ratio] 43.78 kg/m2 Stephon Benavides MD Work Phone: [facility] 08-13-2024 12:44-0500 Body weight 154.68 kg Stephon Benavides MD Work Phone: [facility] 08-13-2024 12:44-0500 Diastolic blood pressure 95 mm[Hg] Stephon Benavides MD Work Phone: [facility] 08-13-2024 12:44-0500 Heart rate 125 /min Stephon Benavides MD Work Phone: [facility] 08-13-2024 12:44-0500 Respiratory rate 16 /min Stepohn Benavides MD Work Phone: [facility] 08-13-2024 12:44-0500 Systolic blood pressure 132 mm[Hg] Stephon Benavides MD Work Phone: [facility] 06-29-2024 14:07-0500 Body height 188 cm Jonathan Gonzalez MD Work Phone: [facility] 06-29-2024 14:07-0500 Body mass index (BMI) [Ratio] 43.65 kg/m2 Jonathan Gonzalez MD Work Phone: [facility] 06-29-2024 14:07-0500 Body temperature 97.81 [degF] Jonathan Gonzalez MD Work Phone: [facility] 06-29-2024 14:07-0500 Body weight 154.22 kg Jonathan Gonzalez MD Work Phone: [facility] 06-29-2024 14:07-0500 Diastolic blood pressure 94 mm[Hg] Jonathan Gonzalez MD Work Phone: [facility] 06-29-2024 14:07-0500 Heart rate 91 /min Jonathan Gonzalez MD Work Phone: [facility] 06-29-2024 14:07-0500 Respiratory rate 18 /min Jonathan Gonzalez MD Work Phone: [facility] 06-29-2024 14:07-0500 SaO2% (BldA) [Mass fraction] 97 % Jonathan Gonzalez MD Work Phone: [facility] 06-29-2024 14:07-0500 Systolic blood pressure 141 mm[Hg] Jonathan Gonzalez MD Work Phone: [facility] 05-16-2024 21:44-0500 Body temperature 98.42 [degF] NIDNOBLE LEGERA DO [facility] 05-16-2024 21:44-0500 Diastolic Blood Pressure Non-Invasive 95 mm[Hg] NIDAL CHOUJAA DO [facility] 05-16-2024 21:44-0500 Heart rate 96 /min NIDAL CHOUJAA DO [facility] 05-16-2024 21:44-0500 Respiratory rate 18 /min NIDAL CHOUJAA DO [facility] 05-16-2024 21:44-0500 Systolic Blood Pressure Non-Invasive 141 mm[Hg] NIDAL CHOUJAA DO [facility] 09-16-2023 11:05-0400 Body height 188 cm Pacc 6 Work Phone: [facility] 09-16-2023 11:05-0400 Body temperature 98.49 [degF] Pacc 6 Work Phone: [facility] 09-16-2023 11:05-0400 Body weight 162.8 kg Pacc 6 Work Phone: [facility] 09-16-2023 11:05-0400 Diastolic blood pressure 86 mm[Hg] Pacc 6 Work Phone: [facility] 09-16-2023 11:05-0400 Heart rate 101 /min Pacc 6 Work Phone: [facility] 09-16-2023 11:05-0400 SaO2% (BldA) [Mass fraction] 98 % Pacc 6 Work Phone: [facility] 09-16-2023 11:05-0400 Systolic blood pressure 143 mm[Hg] Pacc 6 Work Phone: [facility] 09-11-2023 18:11-0400 Body temperature 98.06 [degF] DAVONTE Segura [facility] 09-11-2023 18:11-0400 Diastolic Blood Pressure Non-Invasive 77 mm[Hg] DAVONTE ONEILL MD [facility] 09-11-2023 18:11-0400 Heart rate 98 /min DAVONTE Segura [facility] 09-11-2023 18:11-0400 Respiratory rate 20 /min DAVONTE Segura [facility] 09-11-2023 18:11-0400 Systolic Blood Pressure Non-Invasive 151 mm[Hg] DAVONTE ONEILL MD [facility] 08-27-2023 10:45-0400 Diastolic Blood Pressure Non-Invasive 90 mm[Hg] REYES TERESA DO [facility] 08-27-2023 10:45-0400 Heart rate 94 /min REYES TERESA DO [facility] 08-27-2023 10:45-0400 Respiratory rate 20 /min REYES TERESA DO [facility] 08-27-2023 10:45-0400 Systolic Blood Pressure Non-Invasive 123 mm[Hg] REYES TERESA DO [facility] 08-27-2023 10:35-0400 Diastolic Blood Pressure Non-Invasive 90 mm[Hg] REYES TERESA DO [facility] 08-27-2023 10:35-0400 Heart rate 98 /min REYES TERESA DO [facility] 08-27-2023 10:35-0400 Respiratory rate 15 /min REYES TERESA DO [facility] 08-27-2023 10:35-0400 Systolic Blood Pressure Non-Invasive 123 mm[Hg] REYES TERESA DO [facility] 08-27-2023 10:20-0400 Body temperature 97.7 [degF] REYES TERESA DO [facility] 08-27-2023 10:20-0400 Diastolic Blood Pressure Non-Invasive 68 mm[Hg] REYES TERESA DO [facility] 08-27-2023 10:20-0400 Heart rate 88 /min REYES TERESA DO [facility] 08-27-2023 10:20-0400 Respiratory rate 14 /min REYES TERESA DO [facility] 08-27-2023 10:20-0400 Systolic Blood Pressure Non-Invasive 113 mm[Hg] REYES TERESA DO [facility] 08-27-2023 10:15-0400 Heart rate 86 /min REYES TERESA DO [facility] 08-27-2023 10:15-0400 Respiratory Rate - Anes 13 br/min REYES TERESA DO [facility] 08-27-2023 10:10-0400 Heart rate 96 /min REYES TERESA DO [facility] 08-27-2023 10:10-0400 Respiratory Rate - Anes 15 br/min REYES TERESA DO [facility] 08-27-2023 10:05-0400 Heart rate 104 /min REYES TERESA DO [facility] 08-27-2023 10:05-0400 Respiratory Rate - Anes 30 br/min REYES TERESA DO [facility] 08-27-2023 09:46-0400 Body temperature 97.7 [degF] REYES MOORE DO [facility] 08-27-2023 09:40-0400 Body height 184.5 cm REYES MOORE DO [facility] 08-27-2023 09:40-0400 Body temperature 97.7 [degF] REYES MOORE DO [facility] 08-27-2023 09:40-0400 Body weight 143.1 kg REYES MOORE DO [facility] 08-27-2023 09:40-0400 Body weight 42.04 kg/m2 REYES MOORE DO [facility] 08-06-2023 09:01-0500 Body height 188 cm Vicki Meraz APRN.[facility] Work Phone: [facility] 08-06-2023 09:01-0500 Body weight 158.76 kg Vicki Meraz APRN.TANKER DRIVER, [facility] Work Phone: [facility] 08-06-2023 09:01-0500 Diastolic blood pressure 101 mm[Hg] Vicki Meraz APRN.[facility] Work Phone: [facility] 08-06-2023 09:01-0500 Heart rate 107 /min Vicki Meraz APRN.[facility]NP [facility] Work Phone: [facility] 08-06-2023 09:01-0500 SaO2% (BldA) [Mass fraction] 98 % Vicki Meraz APRN.TANKER DRIVER, [facility] Work Phone: [facility] 08-06-2023 09:01-0500 Systolic blood pressure 153 mm[Hg] Vicki Meraz APRN.[facility]NP [facility] Work Phone: [facility] 07-04-2023 00:20-0500 Body temperature 98.1 [degF] No Primary Care Physician [facility] 07-04-2023 00:20-0500 Diastolic blood pressure 89 mm[Hg] No Primary Care Physician [facility] 07-04-2023 00:20-0500 Heart rate 98 /min No Primary Care Physician [facility] 07-04-2023 00:20-0500 Respiratory rate 16 /min No Primary Care Physician [facility] 07-04-2023 00:20-0500 SaO2% (BldA) [Mass fraction] 96 % No Primary Care Physician [facility] 07-04-2023 00:20-0500 Systolic blood pressure 143 mm[Hg] No Primary Care Physician [facility] 07-03-2023 22:57-0500 Body height 187.96 cm No Primary Care Physician [facility] 07-03-2023 22:57-0500 Body mass index (BMI) [Ratio] 45.6 kg/m2 No Primary Care Physician [facility] 07-03-2023 22:57-0500 Body weight 161.28 kg No Primary Care Physician [facility] 06-28-2023 16:27-0500 Diastolic Blood Pressure Non-Invasive 93 mm[Hg] DR LEDY REESE MD [facility] 06-28-2023 16:27-0500 Heart rate 92 /min DR LEDY REESE MD [facility] 06-28-2023 16:27-0500 Respiratory rate 18 /min DR LEDY REESE MD [facility] 06-28-2023 16:27-0500 Systolic Blood Pressure Non-Invasive 133 mm[Hg] DR LEDY REESE MD [facility] 06-28-2023 14:04-0500 Blood Pressure Cuff Size DR LEDY REESE MD [facility] 06-28-2023 14:04-[address] LEDY REESE MD [facility] 06-28-2023 14:04-[address] LEDY REESE MD [facility] 06-28-2023 14:04-0500 Body height [address] LEDY REESE MD [facility] 06-28-2023 14:04-0500 Body temperature 97.7 [degF] DR LEDY REESE MD [facility] 06-28-2023 14:04-0500 Body weight 136.[address] LDEY REESE MD [facility] 06-28-2023 14:04-0500 Diastolic Blood Pressure Non-Invasive 89 mm[Hg] DR LEDY REESE MD [facility] 06-28-2023 14:04-0500 Heart rate 108 /min DR LEDY REESE MD [facility] 06-28-2023 14:04-0500 Respiratory rate 22 /min DR LEDY REESE MD [facility] 06-28-2023 14:04-0500 Systolic Blood Pressure Non-Invasive 141 mm[Hg] DR LEDY REESE MD [facility] 06-12-2023 09:46-0500 Body mass index (BMI) [Ratio] 44.5 kg/m2 No Primary Care Physician [facility] 06-12-2023 09:46-0500 Body temperature 97.1 [degF] No Primary Care Physician [facility] 06-12-2023 09:46-0500 Body weight 157.39 kg No Primary Care Physician [facility] 06-12-2023 09:46-0500 Diastolic blood pressure 91 mm[Hg] No Primary Care Physician [facility] 06-12-2023 09:46-0500 Heart rate 79 /min No Primary Care Physician [facility] 06-12-2023 09:46-0500 Respiratory rate 18 /min No Primary Care Physician [facility] 06-12-2023 09:46-0500 SaO2% (BldA) [Mass fraction] 100 % No Primary Care Physician [facility] 06-12-2023 09:46-0500 Systolic blood pressure 130 mm[Hg] No Primary Care Physician [facility] 06-08-2023 19:34-0500 Diastolic Blood Pressure Non-Invasive 85 mm[Hg] DR PAUL DOBSON DO [facility] 06-08-2023 19:34-0500 Heart rate 87 /min DR PAUL DOBSON DO [facility] 06-08-2023 19:34-0500 Respiratory rate 18 /min DR PAUL DOBSON DO [facility] 06-08-2023 19:34-0500 Systolic Blood Pressure Non-Invasive 146 mm[Hg] DR PAUL DOBSON DO [facility] 06-08-2023 17:51-0500 Blood Pressure Cuff Size DR PAUL DOBSON DO [facility] 06-08-2023 17:51-[address] PAUL DOBSON DO [facility] 06-08-2023 17:51-[address] PAUL DOBSON DO [facility] 06-08-2023 17:51-0500 Body temperature 98.78 [degF] DR PAUL DOBSON DO [facility] 06-08-2023 17:51-0500 Diastolic Blood Pressure Non-Invasive 80 mm[Hg] DR PAUL DOBSON DO [facility] 06-08-2023 17:51-0500 Heart rate 96 /min DR PAUL DOBSON DO [facility] 06-08-2023 17:51-0500 Respiratory rate 18 /min DR PAUL DOBSON DO [facility] 06-08-2023 17:51-0500 Systolic Blood Pressure Non-Invasive 113 mm[Hg] DR PAUL DOBSON DO [facility] 06-01-2023 01:12-0500 Body height 185.42 cm [facility] 06-01-2023 01:12-0500 Body mass index (BMI) [Ratio] 46.3 kg/m2 [facility] 06-01-2023 01:12-0500 Body temperature 98.4 [degF] [facility] 06-01-2023 01:12-0500 Body weight 159.4 kg [facility] 06-01-2023 01:12-0500 Diastolic blood pressure 96 mm[Hg] [facility] 06-01-2023 01:12-0500 Heart rate 96 /min [facility] 06-01-2023 01:12-0500 Respiratory rate 20 /min [facility] 06-01-2023 01:12-0500 SaO2% (BldA) [Mass fraction] 99 % [facility] 06-01-2023 01:12-0500 Systolic blood pressure 157 mm[Hg] [facility] 05-16-2023 22:40-0500 Diastolic Blood Pressure Non-Invasive 80 mm[Hg] TOI REICHFIELD DO [facility] 05-16-2023 22:40-0500 Heart rate 94 /min TOI REICHFIELD DO [facility] 05-16-2023 22:40-0500 Respiratory rate 18 /min TOI REICHFIELD DO [facility] 05-16-2023 22:40-0500 Systolic Blood Pressure Non-Invasive 132 mm[Hg] TOI REICHFIELD DO [facility] 05-16-2023 21:30-0500 Heart rate 98 /min TOI REICHFIELD DO [facility] 05-16-2023 21:30-0500 Respiratory rate 16 /min TOI REICHFIELD DO [facility] 05-16-2023 21:20-0500 Reason For Taking VItal Signs TOI REICHFIELD DO [facility] 05-16-2023 20:06-0500 Body height 188 cm TOI REICHFIELD DO [facility] 05-16-2023 20:06-0500 Body temperature 98.42 [degF] TOI REICHFIELD DO [facility] 05-16-2023 20:06-0500 Body weight 134.1 kg TOI REICHFIELD DO [facility] 05-16-2023 20:06-0500 Diastolic Blood Pressure Non-Invasive 85 mm[Hg] TOI REICHFIELD DO [facility] 05-16-2023 20:06-0500 Heart rate 98 /min TOI REICHFIELD DO [facility] 05-16-2023 20:06-0500 Respiratory rate 18 /min TOI REICHFIELD DO [facility] 05-16-2023 20:06-0500 Systolic Blood Pressure Non-Invasive 138 mm[Hg] TOI REICHFIELD DO [facility] 02-12-2023 20:36-0400 Diastolic Blood Pressure Non-Invasive 90 1 TOI REICHFIELD DO [facility] 02-12-2023 20:36-0400 Heart rate 77 /min TOI REICHFIELD DO [facility] 02-12-2023 20:36-0400 Reason For Taking VItal Signs TOI REICHFIELD DO [facility] 02-12-2023 20:36-0400 Respiratory rate 20 /min TOI REICHFIELD DO [facility] 02-12-2023 20:36-0400 Systolic Blood Pressure Non-Invasive 130 1 TOI REICHFIELD DO [facility] 02-12-2023 19:10-0400 Diastolic Blood Pressure Non-Invasive 92 1 TOI REICHFIELD DO [facility] 02-12-2023 19:10-0400 Heart rate 75 /min TOI REICHFIELD DO [facility] 02-12-2023 19:10-0400 Reason For Taking VItal Signs TOI REICHFIELD DO [facility] 02-12-2023 19:10-0400 Respiratory rate 18 /min TOI REICHFIELD DO [facility] 02-12-2023 19:10-0400 Systolic Blood Pressure Non-Invasive 129 1 TOI REICHFIELD DO [facility] 02-12-2023 18:15-0400 Diastolic Blood Pressure Non-Invasive 88 1 TOI REICHFIELD DO [facility] 02-12-2023 18:15-0400 Heart rate 88 /min TOI REICHFIELD DO [facility] 02-12-2023 18:15-0400 Reason For Taking VItal Signs TOI MARMOLEJO DO [facility] 02-12-2023 18:15-0400 Respiratory rate 20 /min TOI MARMOLEJO DO [facility] 02-12-2023 18:15-0400 Systolic Blood Pressure Non-Invasive 137 1 [facility] 02-12-2023 17:24-0400 Body temperature 98.24 [degF] [facility] DO [facility] 02-12-2023 17:24-0400 Body weight 149.9 kg [facility] DO [facility] 02-12-2023 17:24-0400 Heart rate 100 /min [facility] [employer] [facility] 10-28-2022 11:57-0400 Blood Pressure Cuff Size ROSHNI SCHWARZENTRAUB PA-C [facility] 10-28-2022 11:57-0400 Blood Pressure Location ROSHNI SCHWARZENTRAUB PA-C [facility] 10-28-2022 11:57-0400 Blood Pressure Method ROSHNI SCHWARZENTRAUB PA-C [facility] 10-28-2022 11:57-0400 Body height 188 cm ROSHNI SCHWARZENTRA UB PA-C [facility] 10-28-2022 11:57-0400 Body temperature 97.88 [degF] ROSHNI SCHWARZENTRA UB PA-C [facility] 10-28-2022 11:57-0400 Body weight 134.1 kg ROSHNI SCHWARZENTRA UB PA-C [facility] 10-28-2022 11:57-0400 Body weight 37.94 kg/m2 ROSHNI [employer]B PA-C [facility] 10-28-2022 11:57-0400 Diastolic Blood Pressure Non-Invasive 87 1 ROSHNI SCHWARZENTRAUB PA-C [facility] 10-28-2022 11:57-0400 Heart rate 111 /min ROSHNI [employer]B PA-C [facility] 10-28-2022 11:57-0400 Respiratory rate 18 /min [place] [employer]B PA-C [facility] 10-28-2022 11:57-0400 Systolic Blood Pressure Non-Invasive 132 1 ROSHNI [employer]AR[employer] PA-C [facility] 10-28-2022 01:45-0400 Body temperature 98.96 [degF] YARA HENSON MD [facility] 10-28-2022 01:45-0400 Diastolic Blood Pressure Non-Invasive 96 1 YARA HENSON MD [facility] 10-28-2022 01:45-0400 Heart rate 98 /min YARA HENSON MD [facility] 10-28-2022 01:45-0400 Respiratory rate 20 /min YARA HENSON MD [facility] 10-28-2022 01:45-0400 Systolic Blood Pressure Non-Invasive 143 1 YARA HENSON MD [facility] 10-21-2022 08:44-0400 Blood Pressure Cuff Size AVANI CANTOR BUYER ASSISTANT-TANKER DRIVER [facility] 10-21-2022 08:44-0400 Blood Pressure Location AVANI CANTOR BUYER ASSISTANT-TANKER DRIVER [facility] 10-21-2022 08:44-0400 Blood Pressure Method AVANI CANTOR BUYER ASSISTANT-TANKER DRIVER [facility] 10-21-2022 08:44-0400 Body height 188 cm AVANI CANTOR BUYER ASSISTANT-TANKER DRIVER [facility] 10-21-2022 08:44-0400 Body temperature 98.42 [degF] AVANI CANTOR BUYER ASSISTANT-TANKER DRIVER [facility] 10-21-2022 08:44-0400 Body weight 134.1 kg AVANI CANTOR APRN-TANKER DRIVER [facility] 10-21-2022 08:44-0400 Body weight 37.94 kg/m2 AVANI CANTOR BUYER ASSISTANT-TANKER DRIVER [facility] 10-21-2022 08:44-0400 Diastolic Blood Pressure Non-Invasive 93 1 AVANI CANTOR APRN-TANKER DRIVER [facility] 10-21-2022 08:44-0400 Heart rate 88 /min AVANI CANTOR APRN-TANKER DRIVER [facility] 10-21-2022 08:44-0400 Respiratory rate 18 /min AVANI CANTOR APRN-TANKER DRIVER [facility] 10-21-2022 08:44-0400 Systolic Blood Pressure Non-Invasive 152 1 AVANI CANTOR BUYER ASSISTANT-TANKER DRIVER [facility] 09-12-2022 13:08-0400 Body height 188 cm Saharey UB PA-C [facility] 09-12-2022 13:08-0400 Body temperature 98.06 [degF] Saharey UB PA-C [facility] 09-12-2022 13:08-0400 Body weight 131.8 kg Saharey UB PA-C [facility] 09-12-2022 13:08-0400 Body weight 37.29 kg/m2 ROSHNI [employer]B PA-C [facility] 09-12-2022 13:08-0400 Diastolic Blood Pressure Non-Invasive 95 1 ROSHNI [employer] PA-C [facility] 09-12-2022 13:08-0400 Heart rate 90 /min [place] [employer] UB PA-C [facility] 09-12-2022 13:08-0400 Respiratory rate 18 /min [place] [employer] UB PA-C [facility] 09-12-2022 13:08-0400 Systolic Blood Pressure Non-Invasive 148 1 [place] [employer] PA-C [facility] 09-05-2022 10:00-0400 Blood Pressure Cuff Size AVANI KEMIERS BUYER ASSISTANT-TANKER DRIVER [facility] 09-05-2022 10:00-0400 Blood Pressure Location AVANI BATERS BUYER ASSISTANT-TANKER DRIVER [facility] 09-05-2022 10:00-0400 Blood Pressure Method AVANI KEMIERS BUYER ASSISTANT-TANKER DRIVER [facility] 09-05-2022 10:00-0400 Body height 188 cm AVANI BATERS BUYER ASSISTANT-TANKER DRIVER [facility] 09-05-2022 10:00-0400 Body temperature 98.6 [degF] AVANI KEMIERS BUYER ASSISTANT-TANKER DRIVER [facility] 09-05-2022 10:00-0400 Body weight 135 kg AVANI KEMIERS BUYER ASSISTANT-TANKER DRIVER [facility] 09-05-2022 10:00-0400 Body weight 38.2 kg/m2 AVANI BATERS BUYER ASSISTANT-TANKER DRIVER [facility] 09-05-2022 10:00-0400 Diastolic Blood Pressure Non-Invasive 91 1 AVANI CANTOR BUYER ASSISTANT-TANKER DRIVER [facility] 09-05-2022 10:00-0400 Heart rate 88 /min AVANI CANTOR BUYER ASSISTANT-TANKER DRIVER [facility] 09-05-2022 10:00-0400 Respiratory rate 18 /min AVANI CANTOR BUYER ASSISTANT-TANKER DRIVER [facility] 09-05-2022 10:00-0400 Systolic Blood Pressure Non-Invasive 119 1 AVANI CANTOR BUYER ASSISTANT-TANKER DRIVER [facility] 08-28-2022 21:45-0400 Diastolic Blood Pressure Non-Invasive 84 1 ANJEL FRIAST DO [facility] 08-28-2022 21:45-0400 Heart rate 86 /min ANJEL FRIAST DO [facility] 08-28-2022 21:45-0400 Respiratory rate 18 /min ANJEL FRIAST DO [facility] 08-28-2022 21:45-0400 Systolic Blood Pressure Non-Invasive 136 1 ANJEL FRIAST DO [facility] 08-28-2022 19:06-0400 Body temperature 97.88 [degF] ANJEL TIMMELT DO [facility] 08-28-2022 19:06-0400 Body weight 136.4 kg ANJEL FROMMELT DO [facility] 08-28-2022 19:06-0400 Diastolic Blood Pressure Non-Invasive 84 1 ANJEL FRIAST DO [facility] 08-28-2022 19:06-0400 Heart rate 100 /min ANJLE Emair [facility] 08-28-2022 19:06-0400 Respiratory rate 20 /min ANJEL [employer] [facility] 08-28-2022 19:06-0400 Systolic Blood Pressure Non-Invasive 141 1 ANJEL Emair [facility] 08-18-2022 15:50-0500 Diastolic Blood Pressure Non-Invasive 80 1 ANJEL Emair [facility] 08-18-2022 15:50-0500 Heart rate 81 /min ANJEL Emair [facility] 08-18-2022 15:50-0500 Reason For Taking VItal Signs ANJEL Emair [facility] 08-18-2022 15:50-0500 Respiratory rate 16 /min ANJEL Emair [facility] 08-18-2022 15:50-0500 Systolic Blood Pressure Non-Invasive 142 1 ANJEL Emair [facility] 08-18-2022 14:01-0500 Diastolic Blood Pressure Non-Invasive 89 1 ANJEL Emair [facility] 08-18-2022 14:01-0500 Systolic Blood Pressure Non-Invasive 142 1 ANJEL Emair [facility] 08-18-2022 13:55-0500 Body temperature 97.88 [degF] ANJEL Emair [facility] 08-18-2022 13:55-0500 Diastolic Blood Pressure Non-Invasive 86 1 ANJEL Emair [facility] 08-18-2022 13:55-0500 Heart rate 87 /min ANJEL Emair [facility] 08-18-2022 13:55-0500 Respiratory rate 12 /min ANJEL [employer] [facility] 08-18-2022 13:55-0500 Systolic Blood Pressure Non-Invasive 161 1 ANJEL [employer] [facility] 08-18-2022 11:32-0500 Body temperature 98.42 [degF] ANJEL [employer] [facility] 08-18-2022 11:32-0500 Body weight 153.5 kg ANJEL [employer] [facility] 08-18-2022 11:32-0500 Heart rate 96 /min ANJEL [employer] [facility] 08-18-2022 11:32-0500 Respiratory rate 18 /min ANJEL [employer] [facility] 07-22-2022 13:54-0500 Diastolic Blood Pressure Non-Invasive 83 1 BLANCO SHAW MD [facility] 07-22-2022 13:54-0500 Heart rate 86 /min BLANCO SHAW MD [facility] 07-22-2022 13:54-0500 Respiratory rate 16 /min BLANCO SHAW MD [facility] 07-22-2022 13:54-0500 Systolic Blood Pressure Non-Invasive 135 1 BLANCO SHAW MD [facility] 07-22-2022 12:30-0500 Diastolic Blood Pressure Non-Invasive 89 1 BLANCO SHAW MD [facility] 07-22-2022 12:30-0500 Heart rate 91 /min BLANCO SHAW MD [facility] 07-22-2022 12:30-0500 Respiratory rate 16 /min BLANCO SHAW MD [facility] 07-22-2022 12:30-0500 Systolic Blood Pressure Non-Invasive 136 1 BLANCO SHAW MD [facility] 07-22-2022 11:30-0500 Diastolic Blood Pressure Non-Invasive 84 1 BLANCO SHAW MD [facility] 07-22-2022 11:30-0500 Heart rate 100 /min BLANCO SHAW MD [facility] 07-22-2022 11:30-0500 Respiratory rate 20 /min BLANCO SHAW MD [facility] 07-22-2022 11:30-0500 Systolic Blood Pressure Non-Invasive 142 1 BLANCO SHAW MD [facility] 07-22-2022 10:12-0500 Body height 188 cm BLANCO SHAW MD [facility] 07-22-2022 10:12-0500 Body temperature 98.96 [degF] BLANCO SHAW MD [facility] 07-22-2022 10:12-0500 Body weight 132 kg BLANCO SHAW MD [facility] 07-18-2022 14:20-0500 Diastolic Blood Pressure Non-Invasive 95 1 AARON DUQUE MD [facility] 07-18-2022 14:20-0500 Heart rate 99 /min AAORN DUQUE MD [facility] 07-18-2022 14:20-0500 Respiratory rate 16 /min AARON DUQUE MD [facility] 07-18-2022 14:20-0500 Systolic Blood Pressure Non-Invasive 130 1 AARON DUQUE MD [facility] 07-18-2022 13:50-0500 Diastolic Blood Pressure Non-Invasive 88 1 AARON DUQUE MD [facility] 07-18-2022 13:50-0500 Heart rate 105 /min AARON DUQUE MD [facility] 07-18-2022 13:50-0500 Respiratory rate 16 /min AARON DUQUE MD [facility] 07-18-2022 13:50-0500 Systolic Blood Pressure Non-Invasive 137 1 AARON DUQUE MD [facility] 07-18-2022 13:20-0500 Diastolic Blood Pressure Non-Invasive 77 1 AARON DUQUE MD [facility] 07-18-2022 13:20-0500 Heart rate 104 /min AARON DUQUE MD [facility] 07-18-2022 13:20-0500 Respiratory rate 16 /min AARON DUQUE MD [facility] 07-18-2022 13:20-0500 Systolic Blood Pressure Non-Invasive 144 1 AARON DUQUE MD [facility] 07-18-2022 13:15-0500 Heart rate 99 /min AARON DUQUE MD [facility] 07-18-2022 13:00-0500 Heart rate 102 /min AARON DUQUE MD [facility] 07-18-2022 11:28-0500 Body temperature 97.88 [degF] AARON DUQUE MD [facility] 07-18-2022 11:25-0500 Respiratory Rate - Anes 0 br/min AARON DUQUE MD [facility] 07-18-2022 11:20-0500 Respiratory Rate - Anes 0 br/min AARON DUQUE MD [facility] 07-18-2022 11:15-0500 Respiratory Rate - Anes 10 br/min AARON DUQUE MD [facility] 07-18-2022 06:48-0500 Body height 188 cm AARON DUQUE MD [facility] 07-18-2022 06:48-0500 Body temperature 98.96 [degF] AARON DUQUE MD [facility] 07-18-2022 06:48-0500 Body weight 134 kg AARON DUQUE MD [facility] 07-18-2022 06:48-0500 Heart rate 99 /min AARON DUQUE MD [facility] 07-15-2022 01:50-0500 Diastolic Blood Pressure Non-Invasive 79 1 DAVONTE ONEILL MD [facility] 07-15-2022 01:50-0500 Heart rate 93 /min DAVONTE Segura [facility] 07-15-2022 01:50-0500 Respiratory rate 15 /min DAVONTE Segura [facility] 07-15-2022 01:50-0500 Systolic Blood Pressure Non-Invasive 124 1 DAVONTE ONEILL MD [facility] 07-15-2022 00:30-0500 Body temperature 97.88 [degF] DAVONTE Segura [facility] 07-15-2022 00:30-0500 Diastolic Blood Pressure Non-Invasive 91 1 DAVONTE ONEILL MD [facility] 07-15-2022 00:30-0500 Heart rate 101 /min DAVONTE Segura [facility] 07-15-2022 00:30-0500 Respiratory rate 18 /min DAVONTE Beaver D [facility] 07-15-2022 00:30-0500 Systolic Blood Pressure Non-Invasive 152 1 DAVONTE ONEILL MD [facility] 07-09-2022 13:12-0500 Blood Pressure Cuff Size AARON DUQUE MD [facility] 07-09-2022 13:12-0500 Blood Pressure Location AARON DUQUE MD [facility] 07-09-2022 13:12-0500 Blood Pressure Method AARON DUQUE MD [facility] 07-09-2022 13:12-0500 Body height 188 cm AARON DUQUE MD [facility] 07-09-2022 13:12-0500 Body weight 134.1 kg AARON DUQUE MD [facility] 07-09-2022 13:12-0500 Body weight 37.94 kg/m2 AARON DUQUE MD [facility] 07-09-2022 13:12-0500 Diastolic Blood Pressure Non-Invasive 82 1 AARON DUQUE MD [facility] 07-09-2022 13:12-0500 Heart rate 91 /min AARON DUQUE MD [facility] 07-09-2022 13:12-0500 Systolic Blood Pressure Non-Invasive 122 1 AARON DUQUE MD [facility] 06-27-2022 23:59-0500 Diastolic Blood Pressure Non-Invasive 75 1 YARA HENSON MD [facility] 06-27-2022 23:59-0500 Heart rate 85 /min YARA HENSON MD [facility] 06-27-2022 23:59-0500 Reason For Taking VItal Signs YARA HENSON MD [facility] 06-27-2022 23:59-0500 Respiratory rate 18 /min YARA HENSON MD [facility] 06-27-2022 23:59-0500 Systolic Blood Pressure Non-Invasive 130 1 YARA HENSON MD [facility] 06-27-2022 21:38-0500 Body temperature 97.52 [degF] YARA HENSON MD [facility] 06-27-2022 21:38-0500 Diastolic Blood Pressure Non-Invasive 100 1 YARA HENSON MD [facility] 06-27-2022 21:38-0500 Heart rate 105 /min YARA HENSON MD [facility] 06-27-2022 21:38-0500 Respiratory rate 24 /min YARA HENSON MD [facility] 06-27-2022 21:38-0500 Systolic Blood Pressure Non-Invasive 157 1 YARA HENSON MD [facility] 06-19-2022 19:36-0500 Body temperature 99.1 [degF] [facility] 06-19-2022 19:36-0500 Diastolic blood pressure 87 mm[Hg] [facility] 06-19-2022 19:36-0500 Heart rate 110 /min [facility] 06-19-2022 19:36-0500 Respiratory rate 18 /min [facility] 06-19-2022 19:36-0500 SaO2% (BldA) [Mass fraction] 96 % [facility] 06-19-2022 19:36-0500 Systolic blood pressure 126 mm[Hg] [facility] 06-01-2022 00:00-0500 Diastolic Blood Pressure Non-Invasive 88 1 YARA HENSON MD [facility] 06-01-2022 00:00-0500 Heart rate 85 /min YARA HENSON MD [facility] 06-01-2022 00:00-0500 Respiratory rate 16 /min YARA HENSON MD [facility] 06-01-2022 00:00-0500 Systolic Blood Pressure Non-Invasive 125 1 YARA HENSON MD [facility] 05-31-2022 21:41-0500 Body height 190.5 cm YARA HENSON MD [facility] 05-31-2022 21:41-0500 Body temperature 97.88 [degF] YARA HENSON MD [facility] 05-31-2022 21:41-0500 Body weight 127.3 kg YARA HENSON MD [facility] 05-31-2022 21:41-0500 Diastolic Blood Pressure Non-Invasive 89 1 YARA HENSON MD [facility] 05-31-2022 21:41-0500 Heart rate 90 /min YARA HENSON MD [facility] 05-31-2022 21:41-0500 Respiratory rate 18 /min YARA HENSON MD [facility] 05-31-2022 21:41-0500 Systolic Blood Pressure Non-Invasive 127 1 YARA HENSON MD [facility] 05-27-2022 18:03-0500 Body height 180.[address] ABDI AGUIRRE MD [facility] 05-27-2022 18:03-0500 Body temperature 98.96 [degF] DR ABDI AGUIRRE MD [facility] 05-27-2022 18:03-0500 Body weight 127.[address] ABDI AGUIRRE MD [facility] 05-27-2022 18:03-0500 Diastolic Blood Pressure Non-Invasive [address] ABDI AGUIRRE MD [facility] 05-27-2022 18:03-0500 Heart rate 118 /min DR ABDI AGUIRRE MD [facility] 05-27-2022 18:03-0500 Respiratory rate 20 /min DR ABDI AGUIRRE MD [facility] 05-27-2022 18:03-0500 Systolic Blood Pressure Non-Invasive [address] ABDI AGUIRRE MD [facility] 04-25-2022 17:56-0500 Diastolic blood pressure 98 mm[Hg] [facility] 04-25-2022 17:56-0500 Heart rate 90 /min [facility] 04-25-2022 17:56-0500 Respiratory rate 18 /min [facility] 04-25-2022 17:56-0500 SaO2% (BldA) [Mass fraction] 100 % [facility] 04-25-2022 17:56-0500 Systolic blood pressure 156 mm[Hg] [facility] [employer] [facility] 04-25-2022 15:04-0500 Body height 188 cm [facility] 04-25-2022 15:04-0500 Body mass index (BMI) [Ratio] 34.67 kg/m2 [facility] 04-25-2022 15:04-0500 Body temperature 97.11 [degF] [facility] 04-25-2022 15:04-0500 Body weight 122.47 kg [facility] 04-03-2022 14:31-0400 Diastolic blood pressure 90 mm[Hg] Pcp No [facility] 04-03-2022 14:31-0400 Heart rate 100 /min Pcp No [facility] 04-03-2022 14:31-0400 Respiratory rate 16 /min Pcp No [facility] 04-03-2022 14:31-0400 SaO2% (BldA) [Mass fraction] 100 % Pcp No [facility] 04-03-2022 14:31-0400 Systolic blood pressure 140 mm[Hg] Pcp No [facility] 04-03-2022 14:14-0400 Body temperature 98.2 [degF] Pcp No [facility] 03-15-2022 00:52-0400 Diastolic blood pressure 75 mm[Hg] JORGITO CANNON DO [facility] 03-15-2022 00:52-0400 Heart rate 97 /min JORGITO CANNON DO [facility] 03-15-2022 00:52-0400 Respiratory rate 16 /min JORGITO CANNON DO [facility] 03-15-2022 00:52-0400 Systolic blood pressure 121 mm[Hg] JORGITO CANNON DO [facility] 03-14-2022 22:56-0400 Body temperature 98.24 [degF] JORGITO CANNON DO [facility] 03-14-2022 22:56-0400 Diastolic blood pressure 81 mm[Hg] JORGITO CANNON DO [facility] 03-14-2022 22:56-0400 Heart rate 107 /min JORGITO CANNON DO [facility] 03-14-2022 22:56-0400 Respiratory rate 18 /min JORGITO CANNON DO [facility] 03-14-2022 22:56-0400 Systolic blood pressure 119 mm[Hg] JORGITO CANNON DO [facility] 03-08-2022 00:57-0400 Body temperature 98.29 [degF] Joseluis Darrion DO Work Phone: [facility] 03-08-2022 00:57-0400 Diastolic blood pressure 89 mm[Hg] Joseluis Darrion DO Work Phone: [facility] 03-08-2022 00:57-0400 Heart rate 100 /min Joseluis Darrion DO Work Phone: [facility] 03-08-2022 00:57-0400 Respiratory rate 18 /min Joseluis Darrion DO Work Phone: [facility] 03-08-2022 00:57-0400 SaO2% (BldA) [Mass fraction] 98 % Joseluis Darrion DO Work Phone: [facility] 03-08-2022 00:57-0400 Systolic blood pressure 134 mm[Hg] Joseluis Darrion DO Work Phone: [facility] 01-03-2022 09:42-0400 Body height 185.4 cm Ibrahima Schaefer MD Work Phone: [facility] 01-03-2022 09:42-0400 Body temperature 98.29 [degF] Ibrahima Schaefer MD Work Phone: [facility] 01-03-2022 09:42-0400 Body weight 144.7 kg Ibrahima Schaefer MD Work Phone: [facility] 01-03-2022 09:42-0400 Diastolic blood pressure 76 mm[Hg] Ibrahima Schaefer MD Work Phone: [facility] 01-03-2022 09:42-0400 Heart rate 102 /min Ibrahima Schaefer MD Work Phone: [facility] 01-03-2022 09:42-0400 Respiratory rate 18 /min Ibrahima Schaefer MD Work Phone: [facility] 01-03-2022 09:42-0400 SaO2% (BldA) [Mass fraction] 97 % Ibrahima Schaefer MD Work Phone: [facility] 01-03-2022 09:42-0400 Systolic blood pressure 124 mm[Hg] Ibrahima Schaefer MD Work Phone: [facility] 01-01-2022 20:51-0400 Diastolic blood pressure 86 mm[Hg] [facility] Work Phone: 01-01-2022 20:51-0400 Heart rate 83 /min [facility] Work Phone: 01-01-2022 20:51-0400 Respiratory rate 18 /min [facility] Work Phone: 01-01-2022 20:51-0400 SaO2% (BldA) [Mass fraction] 100 % [facility] Work Phone: 01-01-2022 20:51-0400 Systolic blood pressure 133 mm[Hg] [facility] Work Phone: 01-01-2022 17:58-0400 Body height 185.42 cm [facility] Work Phone: 01-01-2022 17:58-0400 Body mass index (BMI) [Ratio] 42.1 kg/m2 [facility] Work Phone: 01-01-2022 17:58-0400 Body temperature 98.1 [degF] [facility] Work Phone: 01-01-2022 17:58-0400 Body weight 145 kg [facility] Work Phone: 12-21-2021 22:34-0400 Diastolic blood pressure 83 mm[Hg] ANJEL FROMMELT DO [facility] 12-21-2021 22:34-0400 Heart rate 77 /min ANJEL FROMMELT DO [facility] 12-21-2021 22:34-0400 Reason For Taking VItal Signs ANJEL FROMMELT DO [facility] 12-21-2021 22:34-0400 Respiratory rate 20 /min ANJEL FROMMELT DO [facility] 12-21-2021 22:34-0400 Systolic blood pressure 138 mm[Hg] ANJEL FROMMELT DO [facility] 12-21-2021 21:27-0400 Diastolic blood pressure 93 mm[Hg] ANJEL FROMMELT DO [facility] 12-21-2021 21:27-0400 Heart rate 87 /min ANJEL FROMMELT DO [facility] 12-21-2021 21:27-0400 Reason For Taking VItal Signs ANJEL FROMMELT DO [facility] 12-21-2021 21:27-0400 Respiratory rate 20 /min ANJEL FROMMELT DO [facility] 12-21-2021 21:27-0400 Systolic blood pressure 144 mm[Hg] ANJEL FRIAST DO [facility] 12-21-2021 20:43-0400 Body temperature 99.14 [degF] ANJEL FRIAST DO [facility] 12-21-2021 20:43-0400 Diastolic blood pressure 89 mm[Hg] ANJEL FRIAST DO [facility] 12-21-2021 20:43-0400 Heart rate 96 /min ANJEL FRIAST DO [facility] 12-21-2021 20:43-0400 Respiratory rate 22 /min ANJEL FRIAST DO [facility] 12-21-2021 20:43-0400 Systolic blood pressure 172 mm[Hg] ANJEL FRIAST DO [facility] 11-30-2021 20:30-0400 Diastolic blood pressure 82 mm[Hg] YARA HENSON MD [facility] 11-30-2021 20:30-0400 Heart rate 78 /min YARA HENSON MD [facility] 11-30-2021 20:30-0400 Mean blood pressure 101 mm[Hg] YARA HENSON MD [facility] 11-30-2021 20:30-0400 Respiratory rate 18 /min YARA HENSON MD [facility] 11-30-2021 20:30-0400 Systolic blood pressure 140 mm[Hg] YARA HENSON MD [facility] 11-30-2021 19:12-0400 Body temperature 98.06 [degF] YARA HENSON MD [facility] 11-30-2021 19:12-0400 Diastolic blood pressure 89 mm[Hg] YARA HENSON MD [facility] 11-30-2021 19:12-0400 Heart rate 87 /min YARA HENSON MD [facility] 11-30-2021 19:12-0400 Respiratory rate 18 /min YARA HENSON MD [facility] 11-30-2021 19:12-0400 Systolic blood pressure 148 mm[Hg] YARA HENSON MD [facility] 11-14-2021 13:10-0400 Body height 185.4 cm AARON DUQUE MD [facility] 11-14-2021 13:10-0400 Body weight 140.9 kg AARON DUQUE MD [facility] 11-14-2021 13:10-0400 Body weight 40.99 kg/m2 AARON DUQUE MD [facility] 11-14-2021 13:10-0400 diastolic 74 mm[Hg] AARON DUQUE MD [facility] 11-14-2021 13:10-0400 Heart rate 103 /min AARON DUQUE MD [facility] 11-14-2021 13:10-0400 systolic 128 mm[Hg] AARON DUQUE MD [facility] 10-06-2021 14:52-0400 Body temperature 98.96 [degF] ASHLYN BLISS MD [facility] 10-06-2021 14:52-0400 Diastolic blood pressure 89 mm[Hg] ASHLYN BLISS MD [facility] 10-06-2021 14:52-0400 Heart rate 112 /min ASHLYN BLISS MD [facility] 10-06-2021 14:52-0400 Respiratory rate 18 /min ASHLYN BLISS MD [facility] 10-06-2021 14:52-0400 Systolic blood pressure 148 mm[Hg] ASHLYN BLISS MD [facility] Encounters Encounter Date Encounter Type Care Provider Facility Start: 05-06-2025 ambulatory Viola Starkey NP Facili ty:[facility] Start: 04-24-2025 End: 04-24-2025 Emergency department patient visit Viola Starkey NP Facility:[facility] Start: 04-17-2025 End: 04-17-2025 Emergency department patient visit Viola Starkey NP Facility:[facility] Start: 03-24-2025 End: 03-24-2025 Emergency department patient visit Guero Renitajosette DO -Emergency Department Work Phone: Start: 03-07-2025 End: 03-08-2025 Emergency department patient visit Guero Maravillajosette DO -Emergency Department Work Phone: Start: 03-02-2025 End: 03-02-2025 Emergency department patient visit VIOLA FERNANDESSEY Facility:[facility] Start: 03-01-2025 End: 03-02-2025 Emergency department patient visit BLANCO SHAW MD [facility] Start: 02-27-2025 End: 02-27-2025 Emergency department patient visit Viola Starkey BIODIESEL TECHNOLOGY MANAGER-C Work Phone: -Emergency Department Work Phone: Start: 02-17-2025 End: 02-18-2025 Emergency department patient visit Viola Starkey BIODIESEL TECHNOLOGY MANAGER-C Work Phone: -Emergency Department Work Phone: Start: 01-25-2025 End: 01-26-2025 Emergency department patient visit Viola Starkey BIODIESEL TECHNOLOGY MANAGER-C Work Phone: -Emergency Department Work Phone: Start: 12-29-2024 End: 12-29-2024 Emergency department patient visit Viola Fernandessey BIODIESEL TECHNOLOGY MANAGER-C Work Phone: -Emergency Department Work Phone: Start: [...] 09-08-2024 End: 09-08-2024 ambulatory VIOLA L STARKEY BUYER ASSISTANT-TANKER DRIVER Facility:[facility] Start: 09-07-2024 End: 09-08-2024 Emergency department patient visit VIOLA Siddiqi STARKEY BUYER ASSISTANT-TANKER DRIVER Facility:[facility] Start: 08-24-2024 End: 08-24-2024 Emergency department patient visit No Primary Care Physician -Emergency Department Work Phone: Start: 08-13-2024 End: 08-13-2024 Office outpatient new 45 minutes Stephon Benavides MD Work Phone: [facility] Comment on above: History of abdominal hernia Start: 06-29-2024 End: 06-29-2024 Subsequent hospital visit by physician Rad External Film EF RAD EXTERNAL FILM [facility]IRTUAL Comment on above: Arrived Start: 06-29-2024 End: 06-29-2024 Office outpatient new 45 minutes Jonathan Gonzalez MD Work Phone: [facility] Comment on above: Periumbilical abdomi nal pain (Primary Dx); History of abdominal hernia Start: 05-16-2024 End: 05-16-2024 Emergency department patient visit RADHA YI DO [facility] Start: 10-10-2023 Telephone encounter Juliocesar Borrero MD, PhD Work Phone: [facility] Comment on above: Care Coordination Left lateral abdomin al pain (Primary Dx) Start: 10-07-2023 End: 10-07-2023 Evaluation and management of inpatient TRINIDAD RICHARDSON Facility:[facility] Start: 10-07-2023 Orders Only Trinidad Richardson MD Work Phone: General Surgery Comment on above: Left lower quadrant abdominal pain (Primary Dx) Start: 09-16-2023 Encounter for other preprocedural examination TRINIDAD RICHARDSON [facility] Start: 09-16-2023 End: 09-17-2023 ambulatory TRINIDAD RICHARDSON Facility:[facility] Start: 09-16-2023 Encounter for other preprocedural examination TRINIDAD RICHARDSON [facility] Start: 09-16-2023 End: 09-17-2023 ambulatory TRINIDAD RICHARDSON Facility:[facility] Start: 09-16-2023 End: 09-16-2023 PAT [facility] Work Phone: Pre Anesthesia Comment on above: Pre-op evaluation (P rimary Dx); Post traumatic seizure disorder (HCC); Morbid obesity (HCC); Tobacco use Start: 09-16-2023 End: 09-16-2023 Preprocedural examination done [facility] Work Phone: [facility] Work Phone: Start: 09-11-2023 End: 09-11-2023 Emergency department patient visit DAVONTE ONEILL MD Facility:[facility] Start: 09-11-2023 End: 09-11-2023 Emergency department patient visit DAVONTE ONEILL MD [facility] Start: 08-27-2023 End: 08-27-2023 ambulatory VIOLA STARKEY APRN-TANKER DRIVER Facility:[facility] Start: 08-27-2023 End: 08-27-2023 Minor Procedure REYES MOORE DO [facility] Start: 08-06-2023 End: 08-06-2023 ambulatory SURESH WALE Facility:[facility] Start: 08-06-2023 End: 08-06-2023 Patient encounter procedure Vicki Meraz BUYER ASSISTANT.TANKER DRIVER, DNP Work Phone: Neurology Pain Comment on above: Abdominal pain, unsp ecified abdominal location (Primary Dx) Start: 07-21-2023 ambulatory Trinidad Richardson MD Work Phone: [facility] Comment on above: 4.2324 Cure (Resect ion of Mesh 2 hours los 0) Start: 07-21-2023 Preprocedural examination done Trinidad Richardson MD Work Phone: [facility] Start: 07-18-2023 Orders Only Suresh Griffiths KIKA Work Phone: General Surgery Comment on above: Left lower quadrant abdominal pain (Primary Dx) Start: 07-07-2023 End: 07-08-2023 ambulatory TRINIDAD RICHARDSON Facility:[facility] Start: 07-03-2023 End: 07-04-2023 Emergency department patient visit No Primary Care Physician [facility] Department Work Phone: Start: 06-28-2023 End: 06-28-2023 Emergency department patient visit DR LEDY REESE MD Facility:[facility] Start: 06-28-2023 End: 06-28-2023 Emergency department patient visit DR LEDY REESE MD [facility] Start: 06-12-2023 End: 06-12-2023 Patient encounter procedure No Primary Care Physician [facility] Work Phone: Start: 06-08-2023 End: 06-08-2023 Emergency department patient visit PAUL DOBSON Facility:[facility] Start: 06-08-2023 End: 06-08-2023 Emergency department patient visit DR PAUL DOBSON DO [facility] Start: 06-01-2023 End: 06-01-2023 Emergency department patient visit [facility] Work Phone: Start: 05-17-2023 End: 05-18-2023 ambulatory [facility] Facility:[facility] Start: 05-16-2023 End: 05-17-2023 Emergency department patient visit [facility] Facility:[facility] Start: 05-16-2023 End: 05-16-2023 Emergency department patient visit [facility] Start: 02-23-2023 End: 02-23-2023 Emergency department patient visit ROCHELLE Bryan [facility] Start: 02-12-2023 End: 02-12-2023 [facility] Start: 02-12-2023 End: 02-12-2023 Emergency department patient visit [facility] Start: 10-28-2022 End: 10-29-2022 ambulatory ROSHNI FLORES PA-C Facility:A Start: 10-28-2022 End: 10-28-2022 Patient encounter procedure ROSHNI FLORES PA-C [facility] Start: 10-28-2022 End: 10-28-2022 Emergency department patient visit YARA HENSON MD Facility:[facility] Start: 10-28-2022 End: 10-28-2022 Emergency department patient visit YARA HENSON MD [facility] Start: 10-21-2022 End: 10-22-2022 ambulatory AVANI CANTOR BUYER ASSISTANT-TANKER DRIVER Facility:A Start: 10-21-2022 End: 10-21-2022 Patient encounter procedure AVANI CANTOR BUYER ASSISTANT-TANKER DRIVER [facility] Start: 10-20-2022 End: 10-20-2022 Emergency department patient visit DR LEDY REESE MD Facility:[facility] Start: 09-12-2022 End: 09-12-2022 Patient encounter procedure ROSHNI PITTMANTRAUB PA-C [facility] Start: 09-05-2022 End: 09-05-2022 Patient encounter procedure AVANI KEMIERS BUYER ASSISTANT-TANKER DRIVER [facility] Start: 08-28-2022 End: 08-28-2022 Emergency department patient visit ANJEL PEÑA DO [facility] Start: 08-18-2022 End: 08-18-2022 [facility] Start: 07-22-2022 End: 07-22-2022 Emergency department patient visit BLANCO SHAW MD [facility] Start: 07-18-2022 End: 07-18-2022 SAME DAY STAY AARON DUQUE MD [facility] Start: 07-15-2022 End: 07-15-2022 Emergency department patient visit DAVONTE ONEILL MD [facility] Start: 07-09-2022 End: 07-09-2022 Admission to establishment AARON DUQUE MD [facility] Start: 06-27-2022 End: 06-28-2022 Emergency department patient visit YARA HENSON MD [facility] Start: 06-19-2022 End: 06-20-2022 Emergency department patient visit [facility] Comment on above: Seizure (CMS/HCC) (H CC) (Primary Dx) Start: 06-09-2022 End: 06-10-2022 Emergency department patient visit PHYSICIAN [facility] Start: 06-06-2022 End: 06-06-2022 Emergency department patient visit PHYSICIAN [facility] Start: 05-31-2022 End: 06-01-2022 Emergency department patient visit YARA HENSON MD [facility] Start: 05-27-2022 End: 05-27-2022 Emergency department patient visit DR ABDI AGUIRRE MD [facility] Start: 05-22-2022 End: 05-23-2022 Emergency department patient visit PATRICK PLATA [facility] Start: 04-25-2022 End: 04-25-2022 Emergency department patient visit PCP NO [facility] Start: 04-25-2022 End: 04-25-2022 Emergency department patient visit [facility] Comment on above: Acute pain of right shoulder (Primary Dx); Strain of right shoulder, initial encounter Start: 04-03-2022 End: 04-03-2022 Emergency department patient visit PCP NO [facility] Start: 04-03-2022 End: 04-03-2022 Emergency department patient visit Pcp No [facility] Emergency [facility] Comment on above: Injury of right wris t, initial encounter (Primary Dx) Start: 03-14-2022 End: 03-15-2022 Emergency department patient visit JORGITO CANNON DO [facility] Start: 03-08-2022 End: 03-08-2022 Emergency department patient visit UNKNOWN PROVIDER [facility] Start: 03-08-2022 End: 03-08-2022 Emergency department patient visit Joseluis Maier DO Work Phone: [facility] Comment on above: Closed head injury, initial encounter (Primary Dx) Start: 01-03-2022 End: 01-03-2022 Patient encounter procedure Ibrahima Schaefer MD Work Phone: General Surgery Comment on above: Hematoma (Primary Dx ); Incisional hernia, without obstruction or gangrene Start: 01-01-2022 End: 01-01-2022 Emergency department patient visit [facility] Start: 12-21-2021 End: 12-21-2021 Emergency department patient visit ANJEL MEETAFIDEL PLATA [facility] Start: 11-30-2021 End: 11-30-2021 Emergency department patient visit YARA HENSON MD [facility] Start: 11-14-2021 End: 11-14-2021 Admission to establishment AARON DUQUE MD [facility] Start: 10-26-2021 End: 10-26-2021 Patient encounter procedure TRU TOUSSAINT BUYER ASSISTANT-TANKER DRIVER [facility] Start: 10-06-2021 End: 10-06-2021 Emergency department patient visit ASHLYN BLISS MD [facility] Start: 12-23-2016 End: 12-23-2016 Emergency department patient visit MILDRED Knight ESTELLARandall Facility:[facility] Start: 12-16-2016 End: 12-16-2016 Emergency department patient visit JOSH HELTON Facility:[facility] Procedures Date Procedure Procedure Detail Performing Clinician Start: 03-07-2025 Plain chest X-ray Cat Starkey BIODIESEL TECHNOLOGY MANAGER-C Work Phone: Start: 03-07-2025 Estimated creatinine clearance Viola Starkey BIODIESEL TECHNOLOGY MANAGER-C Work Phone: Start: 03-07-2025 CT of head without contrast Viola Starkey BIODIESEL TECHNOLOGY MANAGER-C Work Phone: Start: 02-27-2025 Estimated creatinine clearance Viola Starkey BIODIESEL TECHNOLOGY MANAGER-C Work Phone: Start: 02-27-2025 Computed tomography of abdomen and pelvis with intravenous contrast Viola Fernandessey BIODIESEL TECHNOLOGY MANAGER-C Work Phone: Start: 02-17-2025 Estimated creatinine clearance Viola Starkey BIODIESEL TECHNOLOGY MANAGER-C Work Phone: Start: 01-25-2025 Estimated creatinine clearance Viola Starkey BIODIESEL TECHNOLOGY MANAGER-C Work Phone: Start: 12-29-2024 Computed tomography of abdomen and pelvis with intravenous contrast Viola Fernandessey BIODIESEL TECHNOLOGY MANAGER-C Work Phone: Start: 12-29-2024 Estimated creatinine clearance Viola Fernandessey BIODIESEL TECHNOLOGY MANAGER-C Work Phone: Start: 12-09-2024 Estimated creatinine clearance [...] 06-29-2024 Study Interpretation of outside study Jonathan Gonzaelz MD Work Phone: Start: 09-16-2023 Antibody screen TRINIDAD B EFFA Comment on above: Order Comment: Speci men Type: BLOOD SPECIMEN Ordering Facility: [facility] Address: [address] [place] [address] Performed By: #### T [id number] #### [facility] CLIA [id number] [address] [place] [address] [place] [address] [place] Start: 08-27-2023 Colonoscopy [...] 04-03-2022 Radex wrist complete minimum 3 views Jluianna ShomoLive PA Work Phone: Start: 03-08-2022 Ct cervical spine w/ o contrast material Joseluis Darrion DO Work Phone: Start: 03-08-2022 Ct head/brain w/o co ntrast material Joseluis Darrion DO Work Phone: Start: 01-01-2022 Computed tomography of abdomen and pelvis with contrast Start: 11-22-2021 Repair of recurrent ventral hernia YARA HENSON MD Start: 06-16-2018 History of repair of umbilical hernia TRU TOUSSAINT BUYER ASSISTANT-TANKER DRIVER Start: 08-29-2017 Adult depression scr eening assessment Ibrahima Schaefer MD Work Phone: Start: 11-12-2016 Lipid 1996 panel - S luigi or Plasma Suresh Griffiths BUYER ASSISTANT.TANKER DRIVER Work Phone: Appendectomy ASHLYN Segura Drain, device (physi mary alice object) AVANI KEMIJADE BUYER ASSISTANT-TANKER DRIVER Comment on above: placed and removed x 3 Plan of Treatment Date Care Activity Detail Author Start: 2029 Zoster Vaccines (1 of 2) Zoste r Vaccines (1 of 2) [facility] Start: 03-24-2025 [facility] Start: 03-08-2025 [facility] Start: 02-27-2025 End: 02-27-2025 [facility] Start: 02-17-2025 [facility] Start: 01-26-2025 [facility] Start: 12-29-2024 [facility] Start: 12-09-2024 Hepatic function panel [facility] Start: 12-09-2024 Triacylglycerol lipa se measurement [facility] Start: 12-07-2024 [facility] Start: 08-24-2024 [facility] Start: 02-15-2024 COVID-19 Vaccine ( season) COVID-19 Vaccine ( season) [facility] Start: 02-15-2024 Influenza vaccination C [facility] Start: 07-21-2023 End: 07-21-2024 aPTT in Platelet poor plasma by Coagulation assay ACTIVATED PTT Lab Routine Preoperative examination Infected hernioplasty mesh, sequela Expected: 07/21/2023, Expires: 07/21/2024 [facility] Work Phone: Comment on above: Expected: 07/21/2023 , Expires: 07/21/2024 Start: 07-21-2023 End: 07-21-2024 CBC W Auto Differential panel - Blood CBC + DIFF Lab Routine Preoperative examination Infected hernioplasty mesh, sequela Expected: 07/21/2023, Expires: 07/21/2024 [facility] Work Phone: Comment on above: Expected: 07/21/2023 , Expires: 07/21/2024 Start: 07-21-2023 End: 07-21-2024 Comprehensive metabolic 2000 panel - Serum or Plasma COMP METABOLIC PANEL Lab Routine Preoperative examination Infected hernioplasty mesh, sequela Expected: 07/21/2023, Expires: 07/21/2024 [facility] Work Phone: Comment on above: Expected: 07/21/2023 , Expires: 07/21/2024 Start: 07-21-2023 End: 07-21-2024 PT panel - Platelet poor plasma by Coagulation assay PROTHROMBIN TIME/PT Lab Routine Preoperative examination Infected hernioplasty mesh, sequela Expected: 07/21/2023, Expires: 07/21/2024 [facility] Work Phone: Comment on above: Expected: 07/21/2023 , Expires: 07/21/2024 Start: 07-21-2023 End: 07-21-2024 TYPE AND SCREEN,30 DAY TYPE AND SCREEN,30 DAY Blood Bank Routine Preoperative examination Infected hernioplasty mesh, sequela Expected: 07/21/2023 (Approximate), Expires: 07/21/2024 [facility] Work Phone: Comment on above: Expected: 07/21/2023 (Approximate), Expires: 07/21/2024 Start: 07-03-2023 [facility] Start: 06-16-2023 Depression Assessment Depression Ass essment [facility] Start: 06-12-20[address] Patient referral [facility] Work Phone: Start: 06-01-2023 [facility] Start: 02-14-2023 Covid-19 Vaccine ( season) Covid-19 Vaccine ( season) [facility] Start: 02-14-2023 Influenza vaccination Influenza Vacc ine (#1) [facility] Start: 02-14-2022 Influenza vaccination C [facility] Start: 01-14-2022 Influenza vaccination Flu vaccine (# 1) [facility] Start: 01-03-2022 End: 03-05-2022 Bacteria identified in Body fluid by Culture [facility] Work Phone: Comment on above: Expected: 01/03/2022 , Expires: 03/05/2022 Start: 01-01-2022 [facility] Work [facility] Start: 11-12-2021 Lipid panel Lipid Screening [facility] Start: 11-12-2021 LIPID SCREEN LIPID SCREEN [facility] Start: 06-25-2021 COVID-19 Vaccine (4 - Booster for Moderna series) COVID-19 Vaccine (4 - Booster for Moderna series) [facility] Start: 2019 Lipid panel Lipids [facility] Start: 08-29-2018 Adult depression screening assessment DEPRESSION SCREENING [facility] Start: 2014 Diabetes screen Diabetes screen [facility] Start: 2001 DTaP/Tdap/Td Vaccine s (1 - Tdap) DTaP/Tdap/Td Vaccines (1 - Tdap) [facility] Start: 1998 DTaP/Tdap/Td vaccine (1 - Tdap) DTaP/Tdap/Td vaccine (1 - Tdap) [facility] Start: 1998 DTaP/Tdap/Td Vaccine s (1 - Tdap) DTaP/Tdap/Td Vaccines (1 - Tdap) [facility] Start: 1998 Hepatitis B Vaccine (1 of 3 - 19+ 3-dose series) Hepatitis B Vaccine (1 of 3 - 19+ 3-dose series) [facility] Start: 1998 Hepatitis B Vaccines (1 of 3 - 19+ 3-dose series) Hepatitis B Vaccines (1 of 3 - 19+ 3-dose series) [facility] Start: 1998 Pneumococcal Vaccine : Pediatrics and At-Risk Adult Patients (1 of 2 - PCV) Pneumococcal Vaccine: Pediatrics and At-Risk Adult Patients (1 of 2 - PCV) [facility] Start: 1998 Urine microalbumin profile [facility] Start: 1997 Diabetes mellitus screening Diabetes Screening [facility] Start: 1997 HEPATITIS C SCREENING HEPATITIS C SC REEHATTIE [facility] Start: 1997 Hepatitis C screening B [facility] Start: 1997 HIV SCREENING HIV SCREENING [facility] Start: 1997 HIV screening [facility] Start: 1994 HIV screening HIV screen [facility] Start: 1991 Depression Screen Depression Screen [facility] Start: 1985 PNEUMOCOCCAL (1 - PCV) PNEUMOCOCCAL (1 - PCV) [facility] Start: 1985 Pneumococcal 0-64 ye ars Vaccine (1 - PCV) Pneumococcal 0-64 years Vaccine (1 - PCV) [facility] Start: 1985 Pneumococcal vaccination Pneum ococcal Vaccine (1 of 2 - PCV) [facility] Start: 1985 Pneumococcal Vaccine : Pediatrics (0 to 5 Years) and At-Risk Patients (6 to 64 Years) (1 - PCV) Pneumococcal Vaccine: Pediatrics (0 to 5 Years) and At-Risk Patients (6 to 64 Years) (1 - PCV) [facility] Start: 01-25-1980 MMR Vaccines (1 of 1 - Standard series) MMR Vaccines (1 of 1 - Standard series) [facility] Start: 1979 COVID-19 Vaccine (#1) COVID-19 Vacci ne (#1) [facility] Start: 1979 Hepatitis B Vaccine (1 of 3 - 3-dose series) Hepatitis B Vaccine (1 of 3 - 3-dose series) [facility] Start: 1979 Hepatitis B Vaccines (1 of 3 - 3-dose series) Hepatitis B Vaccines (1 of 3 - 3-dose series) [facility] Start: 1979 HIV screening HIV Screening [facility] Start: 1979 Lipid panel Lipid Panel [facility] Start: 1979 Screening for malign ant neoplasm of colon [facility] Start: 1979 Yearly Adult Physical Yearly Adult P hysical [facility] End: 07-21-2024 ECG COMPLETE ECG COMPLETE ECG Routine Preoperative examination Infected hernioplasty mesh, sequela 1 Occurrences starting 07/21/2023 until 07/21/2024 [facility] Work Phone: Comment on above: 1 Occurrences starti ng 07/21/2023 until 07/21/2024 Erythrocyte mean corpuscular volume determination [facility] Hematocrit [Volume Fraction] of Blood [facility] Hemoglobin [Mass/vol ume] in Blood [facility] Leukocytes [#/volume ] in Blood [facility] Mean corpuscular hemoglobin concentration determination [facility] Mean corpuscular hemoglobin determination [facility] Measurement of renal function [facility] Neutrophil count [facility] Neutrophil percent differential count [facility] Patient Education [facility] Work Phone: Patient referral [facility] Work Phone: Platelets [#/volume] in Blood [facility] Red blood cell count [facility] Red cell distributio n width determination [facility] REFER FOR ADMIT INTERVIEW REFER FOR ADMIT INTERVIEW Procedures Routine Preoperative examination Infected hernioplasty mesh, sequela Ordered: 07/21/2023 [facility] Work Phone: Comment on above: Ordered: 07/21/2023 SPINE INTERVENTION PROCEDURE SPINE INTERVENTION PROCEDURE Procedures Routine Left lateral abdominal pain Ordered: 10/10/2023 [facility] Work Phone: Comment on above: Ordered: 10/10/2023 [facility] Immunizations Immunization Date Immunization Notes Care Provider Fa [facility] 08-23-2024 tetanus toxoid, redu yovanny diphtheria toxoid, and acellular pertussis vaccine, adsorbed; Translations: [Boostrix (Tdap)] BLANCO SHAW MD [facility] 04-30-2021 SARS-CoV-2 (COVID-19 ) mRNA-1273 vaccine JORGITO CANNON DO [facility] Comment on above: Result Comment: 2021: [id number] 10-05-2020 SARS-CoV-2 (COVID-19 ) mRNA-1273 vaccine JORGITO CANNON DO [facility] 09-06-2020 SARS-CoV-2 (COVID-19 ) mRNA-1273 vaccine JORGITO CANNON DO [facility] 09-09-2013 influenza, seasonal, injectable, preservative free ASHLYN BLISS MD [facility] 09-09-2013 influenza virus vaccine, unspecified formulation [facility] Payers Date Payer Category Payer Private Health Insurance [id number] 2024 Self-pay [id number] 2024 Managed Care (Private) NGUYỄN [facility]OST [facility] [id number] 2023 Unknown NGUYỄN GUERRERO X [id number] 2023-Present [phone] [address] [address] [place] [address] HMO [id number]. [id number] 2023 Unknown [id number] 2022 Medicaid (Managed Care) 1.2. [id number] 2022 Medicaid 2022 Medicaid MEDICAID [facility] MEDICAID [id number] 2022-Present [phone] [address] [place] [address] Medicaid [id number]. [id number] 2014 Medicaid [id number] 2014 Medicaid [id number] 1979 Unknown [id number] 2.16.840.1.134749.3.579.2. 668 1979 Unknown [id number] 2.16.840.1.143239.3.579.2. 204 1979 Unknown [id number] 2.16.840.1.863605.3.579.2. 204 1979 Unknown [id number] 2.16.840.1.372857.3.579.2. 651 1979 Unknown [id number] 2.16.840.1.766139.3.579.2. 903 1979 Unknown [id number] 2.16.840.1.128032.3.579.2. 903 1979 Unknown [id number] 2.16.840.1.746409.3.579.2. 1979 Unknown [id number] 2.16.840.1.631053.3.579.2. 1979 Unknown [id number] 2.16.840.1.708929.3.579.2. 1979 Unknown [id number] 2.16.840.1.323133.3.579.2. 1979 Unknown [id number] 2.16.840.1.183297.3.579.2. 1979 Unknown [id number] 2.16.840.1.161668.3.579.2. 1979 Unknown [id number] 2.16.840.1.358825.3.579.2 1979 Unknown [id number] 2.16.840.1.160239.3.579.2. 1979 Unknown [id number] 2.16.840.1.276648.3.579.2. 627 1979 Unknown [id number] 2.16.840.1.661531.3.579.2. 627 1979 Unknown [id number] 2.16.840.1.285716.3.579.2. 627 1979 Unknown [id number] 2.840.1.162376.3.579.2. 1979 Unknown [id number] 2.840.1.586606.3.579.2. 62 1979 Unknown [id number] 2.840.1.838377.3.579.2. 1979 Unknown [id number] 2.840.1.454774.3.579.2. 627 Unknown [id number] Unknown [id number] 2.840.1.237241.3.579.2. 462 Unknown [id number] 2.840.1.376925.3.579.2. 462 Unknown [id number] 2.840.1.534759.3.579.2. 462 Unknown [id number] 2.840.1.262164.3.579.2. 462 Unknown [id number] 2.840.1.824871.3.579.2. 462 Unknown [id number] 2.840.1.721235.3.579.2. 462 Unknown [id number] 2.840.1.730190.3.579.2. 462 Unknown [id number] 2.16840.1.947807.3.579.2. 462 Unknown [id number] 2.16840.1.086091.3.579.2. 462 Unknown [id number] 2.840.1.723908.3.579.2. 462 Unknown [id number] 2.16.840.1.514201.3.579.2. 462 Unknown [id number] 2.16.840.1.905646.3.579.2. 462 Unknown [id number] 2.16.840.1.413407.3.579.2. 462 Social History Date Type Detail Facility Start: 10-23-2016 End: 03-24-2025 Tobacco smoking status Smokes tobacco daily (finding) [facility]igned At [facility] Start: 10-19-2021 End: 08-27-2023 Tobacco smoking status Light tobacco smoker (finding) [facility] Start: 11-14-2021 End: 07-01-2022 Tobacco smoking status Heavy tobacco smoker (finding) [facility] Start: 01-01-2022 End: 06-01-2023 Tobacco smoking status NHIS Unknown if ever smoked [facility] Start: 09-23-2018 Cigarettes [facility] Start: 1980 Sex Assigned At Male [facility] Start: 10-23-2016 End: 08-13-2024 Cigarettes smoked current (pack per day) - Reported 2 [facility] Start: 10-23-2016 End: 08-13-2024 Tobacco use and exposure Smokeless tobacco non-user [facility] Start: 01-03-2022 End: 09-16-2023 Alcohol intake Current non-drinker of alcohol (finding) [facility] Start: 1980 Sex Assigned At Not on file [facility] Start: 12-24-2021 End: 06-29-2024 Exposure to SARS-CoV-2 (event) Not sure [facility] Start: 03-08-2022 Alcohol intake Ex-drinker (finding) [employer] Work Phone: History of tobacco use Cigarette Smoker B ON [employer] Work Phone: Start: 07-07-2023 End: 08-13-2024 Tobacco use panel [facility] National Score (1-10 0), lower number is lower risk 67 [facility] Start: 06-25-2023 Gender identity Identifies as male gender (finding) [facility] Start: 06-25-2023 Sexual orientation Heterosexual (finding) [facility] Start: 09-16-2023 Tobacco Comment Currently smokes 0.5 ppd [facility] Start: 09-16-2023 Alcohol Comment rare [facility] Start: 06-29-2024 End: 08-13-2024 Alcoholic beverage intake Lifetime non-drinker (finding) [facility] Work Phone: History of tobacco use Passive smoker [facility] Work Phone: Start: 08-10-2013 End: 08-24-2024 Sex Male (finding) [facility] Medical Equipment Procedure Code Equipment Code [...] Facility 05-16-2024 Functional Status Independent [facility] [place] 05-16-2024 Functional Status Standard Safet y ID band on, Allergy Band on, Call device within reach, Bed in low position, Wheels locked, Visitor at bedside, Safety level maintained [facility] 09-11-2023 Functional Status Independent [facility] 08-27-2023 Functional Status Awake, Up ad loc [facility] 08-27-2023 Functional Status Maintained, Less than 8 hours [facility] 06-28-2023 Functional Status Room check performed [facility] 06-28-2023 Functional Status [facility] 06-08-2023 Functional Status Independent [facility] 06-08-2023 Functional Status Ambulation in [place], Ambulation in Room [facility] 05-16-2023 Functional Status Standard Safet y ID band on, Allergy Band on, Call device within reach, Bed in low position, Wheels locked, Upper/Half-Length side-rails up, personal items within reach, Visitor at bedside [facility] 02-12-2023 Functional Status ID band on, Allergy Band on, Call device within reach, Bed in low position, Wheels locked, Bedside Cart Locked, Visitor at bedside, Safety level maintained [facility] 02-12-2023 Functional Status [facility] 10-28-2022 Functional Status ID band on, Allergy Band on [facility] 10-28-2022 Functional Status ID band on, Allergy Band on, Call device within reach, Bed in low position, Wheels locked, Upper/Half-Length side-rails up, Phone within reach, personal items within reach, Bedside Cart Locked, Visitor at bedside [facility] 10-21-2022 Functional Status ID band on, Allergy Band on, Safety level maintained [facility] 09-12-2022 Functional Status Ambulating in zamorano [facility] 09-05-2022 Functional Status Sensory Deficits None [facility] 08-28-2022 Functional Status Standard Safet y ID band on, Call device within reach, Bed in low position, Wheels locked, Upper/Half-Length side-rails up, Bedside Cart Locked, Safety level maintained [facility] 08-18-2022 Functional Status Independent [facility] 08-18-2022 Functional Status Room check performed [facility] 07-22-2022 Functional Status [facility] 07-22-[facility] Functional Status Standard Safet y ID band on, Allergy Band on, Call device within reach, Bed in low position, Wheels locked, Visitor at bedside [facility] 07-18-2022 Functional Status abdominal bind er on, ice on [facility] 07-18-2022 Functional [facility] 07-15-[facility] Functional Status Activity Pillo tanmiguel Independent [facility] 07-15-2022 Functional Status Standard Safet y ID band on, Allergy Band on, Call device within reach, Bed in low position, Wheels locked, Upper/Half-Length side-rails up, Phone within reach, personal items within reach, Safety level maintained [facility] 07-09-2022 Functional Status Sensory Deficits None [facility] 06-27-2022 Functional Status Room check performed [facility] 06-27-2022 Functional Status [facility] 06-01-2022 Functional Status Ambulating in zamorano, Ambulating in room, Awake [facility] 05-31-2022 Functional Status Standard Safet y ID band on, Allergy Band on, Call device within reach, Bed in low position, Wheels locked, Upper/Half-Length side-rails up, personal items within reach [facility] 05-27-2022 Functional [facility] 03-15-[facility] Functional Status Room check performed [facility] 03-14-2022 Functional Status [facility] 12-21-2021 Functional Status Standard Safet y ID band on, Call device within reach, Bed in low position, Wheels locked, Upper/Half-Length side-rails up, Bedside Cart Locked, Safety level maintained [facility] 12-21-2021 Functional Status [facility] 11-30-2021 Functional Status Standard Safet y ID band on, Call device within reach, Bed in low position [facility] 11-14-2021 Functional Status Sensory Deficits None [facility] 10-06-2021 Functional Status [facility] 10-06-2021 Functional Status [facility] Mental Status Date Assessment Result Facility 03-07-2025 Cognitive function Voice/Name [facility] Work Phone: 05-16-2024 Mental Status Orientation Oriented x 4 [facility] 05-16-2024 Mental Status [facility] 09-11-2023 Mental Status Orientation Oriented x 4 [facility] 08-27-2023 Mental Status Oriented x 4 [facility] 08-27-2023 Mental Status [facility] 06-28-2023 Mental Status Orientation Oriented x 4 [facility] 06-28-2023 Mental Status [facility] 06-08-2023 Mental Status Orientation Oriented x 4 [facility] 06-08-2023 [facility]23 Mental Status Orientation Oriented x 4 [facility] 02-12-2023 Mental Status Orientation Oriented x 4 [facility] 02-12-2023 Mental Status [facility] 10-28-2022 Mental Status Orientation Oriented x 4 [facility] 10-28-2022 Mental Status Oriented x 4 [facility] 10-21-2022 Mental Status Orientation Oriented x 4 [facility] 09-12-2022 Mental Status Orientation Oriented x 4 [facility] 09-05-2022 Mental Status Orientation Oriented x 4 [facility] 08-28-2022 Mental Status Orientation Oriented x 4 [facility] 08-18-2022 Mental Status Orientation Oriented x 4 [facility] 08-18-2022 [facility] 07-22-2022 Mental Status Orientation Oriented x 4 [facility] 07-22-2022 Mental Status [facility] 07-18-2022 Mental Status Orientation Oriented x 4 [facility] 07-18-2022 Mental Status [facility] 07-15-2022 Mental Status Orientation Oriented x 4 [facility] 07-15-2022 Mental Status [facility] 06-28-2022 Mental Status Orientation Oriented x 4 [facility] 06-27-2022 Mental Status [facility] 06-01-2022 Mental Status Orientation Oriented x 4 [facility] 05-31-2022 Mental Status [facility] 05-27-2022 Mental Status Orientation Oriented x 4 [facility] 03-15-2022 Mental Status Orientation Oriented x 4 [facility] 03-14-2022 Mental Status [facility] 12-21-2021 Mental Status Oriented x 4 [facility] 12-21-2021 Mental Status [facility] 11-30-2021 Mental Status Orientation Oriented x 4 [facility] 11-30-2021 Mental Status [facility] 10-06-2021 Mental Status [facility] 10-06-2021 Mental Status [facility] Clinical Notes 10-06-2021 to 03-24-2025 Note Date & Type Note Facility 03-24-2025 Discharge summary [facility] 03-24-2025 Discharge summary Note Date/Time March 24, 2025 10:43pm [facility] Medical Records Department [address] [place] [address] Emergency Department Summary 03/24/25 MR#: [id number] Acct: [id number] Name: PATRICK KOROMA Rep #:[id number] : 1980 45 From: Guero Baker DO [...] nausea or vomiting. He reports he took lbtf-let-iiihdfg medication without any symptom improvement. Therefore with theworsening pain he presents for evaluation [facility] Medical History (Updated 03/25/25 @ 23:18 [...] Viola Starkey NP Referrals: Viola Starkey NP, BIODIESEL TECHNOLOGY MANAGER-C [Primary Care Provider, Family Practice] Activity Restrictions/Additional Instructions: Please follow-up with your surgeon as previously directed and return to the ER if you have any further concerns or worsening of symptoms Print Language: Iranian Disposition Disposition: Home, Self Care Discharge Date/Time: 03/24/25 22:43 What to do if you have Problems For any increased pain, shortness of breath, bleeding, nausea or vomiting, chestpain, or any unexpected problems, contact your Primary Care Provider. Call [facility] ([phone]) or report to the closest Emergency Room. Call 911 if necessary. 03/25/25 2409 <Electronically signed by Guero Baker DO> Cosigner Signature (if applicable): CC: ERIC Starkey ~ Signed [facility] Work Phone: 1(327) 946-757709-23-2025 Discharge summary [facility] Medical Records Department [address] [place] [address] Emergency Department Summary 03/08/25 MR#: [id number] Acct: [id number] Name: PATRICK KOROMA Rep #:[id number] : 1980 45 From: Guero Baker DO [...] for multiple years he presents for evaluation [facility] Medical History (Updated 03/08/25 @ 01:30 [...] % (Auto) 53.7 Lymph % (Auto) 34.8 Benson % (Auto) 6.0 Eos % (Auto) 3.6 [...] 23:13 IMPRESSION: Unremarkable head CT. Reading Location: [id number] Chest X-Ray 03/07/25 23:40 IMPRESSION: No acute cardiopulmonary disease. Reading Location: [id number] Chest x-ray as interpreted by the emergency [...] you have any further concerns. Print Language: Iranian Disposition Disposition: Home, Self Care Discharge Date/Time: 03/08/25 00:58 What to do if you have Problems For any increased pain, shortness of breath, bleeding, nausea or vomiting, chestpain, or any unexpected problems, contact your Primary Care Provider. Call [facility] ([phone]) or report tothe closest Emergency Room. Call 911 if necessary. 03/08/25 0130 Cosigner Signature (if applicable): CC: ERIC Starkey ~ Signed [facility]09-22-2025 Radiology Diagnostic study note [facility] Imaging Services [address] [place], [place] [address] Brain/Head without Contrast MR#: [id number] Acct: [id number] Name: PATRICK KOROMA Rep #: [id number] : 1980 M 45 From: Morales Box MD PCP: ERIC Anaya Status: REG ER Study:Brain/Head without Contrast Date of Exa m: 03/07/25 Exam# [id number] Ordering Dr: Maru Baker DO PROCEDURE: CT [...] Contrast IMPRESSION: Unremarkable head CT. Reading Location: [facility] CC: BIODIESEL TECHNOLOGY MANAGER-C Viola Starkey; Guero Baker DO ~ Radar Systems Engineer: Signed [facility]09-22-2025 Radiology Diagnostic study note [facility] Imaging Services [address] [place] [address] Chest 1 View (Portable) MR#: [id number] Acct: [id number] Name: PATRICK KOROMA Rep #: [id number] : 1980 M 45 From: Morales Box MD PCP: ERIC Anaya Status: REG ER Study:Chest 1 View (Portable) Date of Exam: 03/07/25 Exam# [id number] Ordering Dr: Maru Baker DO PROCEDURE: CHEST 1 VIEW (PORTABLE) 03/07/2025 REASON FOR EXAM: SEIZURE TECHNIQUE: Frontal view of the chest. COMPARISON: None. FINDINGS: Lungs/Pleura: Clear. No pneumothorax or sizable pleural effusion. Heart/Mediastinum: Within normal limits. Bones/Soft tissues: No significant abnormality. RAD/Chest 1 View (Portable) IMPRESSION: No acute cardiopulmonary disease. Reading Location: [facility] CC: ERIC Starkey; Guero Baker DO ~ Radar Systems Engineer: Signed [facility]09-17-2025 Hospital Discharge instructions Patient Education 03/02/2025 [...] or as directed by your healthcare provider [phone] [employer]. [address] [place] [address], [place] [address]. All rights reserved. This information is not intended as a substitute for professional medical care. Always follow yourhealthcare professional's instructions. Follow Up Care 03/01/2025 22:53:25 With:Your surgeon at next available appointment Address:Unknown When: Unknown With:VIOLA STARKEY APRN-TANKER DRIVER Address: [address] [place] [phone]- [phone] When:2-4 days [facility] 09-17-2025 Note Discharge Instructions Thank you for [...] with VIOLA STARKEY When:Within 2-4 days Where:[address] [place] [address]- [phone] Allergies Keflex Keppra Rash Tape, Paper Rash [...] or as directed by your healthcare provider [phone] [employer]. [address] [place] [address], [place] [address]. All rights reserved. This information is not intended as a substitute for professional medical care. Always follow yourhealthcare professional's instructions. Additional Information VACCINATE! IT SAVES LIVES! Members of the community who have not yet received the COVID-19 vaccine and would like to receive it can visit one of [facility] vaccine clinics. There are many vaccine clinic locations within the [facility]. For locations and available times, please visit www.gettheshot.coronavirus.[place].gov/. It is important to note that some COVID mobile vaccine clinics are held outdoors and may be canceled in rainy or stormy conditions. To learn more about pediatric vaccinations (ages 5-11), we invite you to visit the [facility] webpage. https://www.[email or web address]/pages/[email or web address]-Vxlfm-Hwdkbsmrlov-Mmbgqzfqih-Jnmyp-Kzs stions.htmlTo learn more about the COVID-19 vaccine, we invite you to visit the CDC website for a list of frequently asked questions. https://www.cdc.gov/coronavirus/2019-ncov/vaccines/faq.html [facility] Access Instructions: Stay connected with your healthcare team and access your personal medical information anytime with the [facility] Patient Portal. If you would like a full copy of your medical records please contact the [facility] Medical Records Department Friday through Friday between 8a.m. and 4:30p.m. Please follow the directions below to access the portal: 1.Access the email account you provided upon registration to the hospital.2.Look for an invitation email from [facility].3.Open the email and access the invitation link: Accept Invitation to [facility]4.Fill in the required vegas to create your account. To access your account, visit [email or web address] or scan the [employer] code above. Click the [employer] Access Patient Portal and then log in [...] you will allow to register on the [facility] Patient Portal for access to your information. You can also access the [employer] Patient Portal on the [employer]. Simply click on Health Records under Health [...] Call your local pharmacy or go to http://bit.[employer]Hello [email or web address]/3O1Er0z to find one close to you.3.Make use of household items: Use cat litter or old coffee grounds to dispose medications if other options arenot available. Mix your drugs with these household products, seal them in an airtight container andthrow it into the garbage. Call [facility]: [phone] to be sure your drugs can be [...] aware that I should contact my doctor. 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: Relationship to Patient: Witness Name/Signature: Date/Time: [facility]09-16-2025 Note* Exam Date Time Procedure Performing Provider Status 03/01/25 11:[address] Abdomen/Pelvis w/o Contrast MILIND GOLDSMITH MD; Auth (Verified) [id number] ORIGINAL EXAMINATION: CT OF THE ABDOMEN AND [...] Sign Date: 03/02/2025 12:00:47 AM Ordering Provider: [facility]09-14-2025 Discharge summary [facility] Medical Records Department [address] [place] [address] Emergency Department Summary 02/27/25 MR#: [id number] Acct: [id number] Name: PATRICK KOROMA Rep #:[id number] : 1980 45 From: Joseluis Mario PCP: Viola Starkey, BIODIESEL TECHNOLOGY MANAGER-C Status:REG ER Location: ED HPI History of [...] hernia,appendectomy. Notes he follows a specialist at [facility]. Notes he has a surgical evaluation/ operation scheduled for March. He notes worsening pain in the abdomen. Denies vomiting. Denies fever. Last bowel movement was this morning (reported as normal). No urinary complaints. REVIEW OF SYSTEMS: Pertinent positives: Abdominal pain Pertinent negatives: As per HPI PHYSICAL EXAM: Nursing triage notes reviewed, Vital signs reviewed Constitutional: please see [facility] HENT: MMM Eyes: Pupils equal round [...] MEDICAL DECISION MAKING: Chief Complaint: please see [facility] External records reviewed: Seen on 02/2025 for abdominal pain. Reviewed prior imaging studies. Reviewed imaging studies from January 07 which shows Factors affecting care: As per [facility] Social determinants of health: none History obtained from others: Mary? Consults: none [facility] Narrative: The patient was initially hypertensive [...] Discharge home This note was generated with [employer] dictation software. It may contain incorrectwords, spelling, [...] % (Auto) 55.5 Lymph % (Auto) 34.6 Benson % (Auto) 6.8 Eos % (Auto) 2.2 [...] IN THE ABDOMEN OR PELVIS. Reading Location: [facility] Discharge Plan Triage Chief Complaint: [...] - Active Staff] - Viola Starkey NP, BIODIESEL TECHNOLOGY MANAGER-C [Primary Care Provider] - Activity Restrictions/Additional Instructions: [...] further outpatient evaluation and management. Print Language: Iranian Disposition Disposition: Home, Self Care What to do if you have Problems For any increased pain, shortness of breath, bleeding, nausea or vomiting, chestpain, or any unexpected problems, contact your Primary Care Provider. Call [employer] [facility] ([phone]) or report tothe closest Emergency Room. Call 911 if necessary. 02/27/25 9743 Cosigner Signature (if applicable): CC: BIODIESEL TECHNOLOGY MANAGER-Marielos Starkey ~ Signed [facility]09-14-2025 Radiology Diagnostic study note [facility] Imaging Services [address] [place], [place] [address] Abdomen/Pelvis W IV Cont ONLY MR#: [id number] Acct: [id number] Name: PATRICK KOROMA Rep #: [id number] : 1980 M 45 From: Elias Collazo MD PCP: EIRC Anaya Status: REG ER Study:Abdomen/Pelvis W IV Cont ONLY Date of E xam: 02/27/25 Exam# [id number] Ordering Dr: Solis Maier DO PROCEDURE: ABDOMEN/PELVIS [...] IN THE ABDOMEN OR PELVIS. Reading Location: [facility] CC: BIODIESEL TECHNOLOGY MANAGER-C Viola Starkey; Dr. Joseluis Maier DO ~ Radar Systems Engineer: Signed [facility]09-14-2025 Discharge summary Author Joseluis Maier [facility] Note Date/Time February 27, 2025 10:57pm [facility] Medical Records Department [address] [place] [address] Emergency Department Summary 02/27/25 MR#: [id number] Acct: [id number] Name: PATRICK KOROMA Rep #:[id number] : 1980 45 From: Joseluis Mario PCP: [...] Ox 98 Oxygen Delivery Method Room Air [facility] Narrative Medical decision making narrative: HISTORY OF PRESENT ILLNESS: Chief complaint: Abdominal pain 45-year-old male here with concern for abdominal pain. History of large hernia,appendectomy. Notes he follows a specialist at [facility]. Notes he has a surgical evaluation/ operation scheduled for March. He notes worsening pain in the abdomen. Denies vomiting. Denies fever. Last bowel movement was this morning (reported as normal). No urinary complaints. REVIEW OF SYSTEMS: Pertinent positives: Abdominal pain Pertinent negatives: As per HPI PHYSICAL EXAM: Nursing triage notes reviewed, Vital signs reviewed Constitutional: please see [facility] HENT: MMM Eyes: Pupils equal round [...] History obtained from others: Fianc? Consults: none [facility] Narrative: The patient was initially hypertensive [...] Discharge home This note was generated with [employer] dictation software. It may contain incorrectwords, spelling, [...] % (Auto) 55.5 Lymph % (Auto) 34.6 Benson % (Auto) 6.8 Eos % (Auto) 2.2 [...] IN THE ABDOMEN OR PELVIS. Reading Location: [facility] Discharge Plan Triage Chief Complaint: [...] - Active Staff] - Viola Starkey NP, BIODIESEL TECHNOLOGY MANAGER-C [Primary Care Provider] - Activity Restrictions/Additional Instructions: [...] further outpatient evaluation and management. Print Language: Iranian Disposition Disposition: Home, Self Care What to do if you have Problems For any increased pain, shortness of breath, bleeding, nausea or vomiting, chestpain, or any unexpected problems, contact your Primary Care Provider. Call [facility] ([phone]) or report to the closest Emergency Room. Call 911 if necessary. 02/27/25 6517 <Electronically signed by Joseluis Maier DO> Cosigner Signature (if applicable): CC: ERIC Starkey ~ Signed [facility] Work Phone: 1(792) 265-140407-16-2025 Discharge summary [facility] Medical Records Department [address] [place] [address] Emergency Department Summary 12/29/24 MR#: [id number] Acct: [id number] Name: PATRICK KOROMA Rep #:[id number] : 1980 44 From: Justin Cordero MD [...] [place] he was told by him he could do it. He referred himto a surgeon in [place] at and they also told him they were not able to help him. Patient denies any fever. No dysuria. Denies any nausea, vomiting or diarrhea. No back pain. Prior similar symptoms: Yes Recent Illness/Hospitalization: No [facility] Medical History Seroma after procedure [...] obstruction. 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 Reading Location: [place] [address] Discharge Plan Triage Chief Complaint: Abd Pain ED Provider: Justin Cordero Dx/Rx/DC Orders Clinical Impression: Abdominal pain, Ventral hernia Instructions: ED Hernia (Adult) Prescriptions: No Action NK Primary Care Provider: Viola Starkey NP Referrals: Viola Starkey NP, YULI-C [Primary Care Provider] - Activity Restrictions/Additional Instructions: Call the [facility]. Get the name and office number of the general surgeons therethat are hernia antique automobiles repairer. Call their office to get an appointment. Motrin and Tylenol for pain. Print Language: Iranian Disposition Disposition: Home, Self Care What to do if you have Problems For any increased pain, shortness of breath, bleeding, nausea or vomiting, chestpain, or any unexpected problems, contact your Primary Care Provider. Call [facility] ([phone]) or report tothe closest Emergency Room. Call 911 if necessary. 12/29/24 2250 Cosigner Signature (if applicable): CC: BIODIESEL TECHNOLOGY MANAGER-C Viola Starkey ~ Signed [facility]07-16-2025 Radiology Diagnostic study note [facility] Imaging Services [address] [place], [place] [address] Abdomen/Pelvis W IV Cont ONLY MR#: [id number] Acct: [id number] Name: PATRICK KOROMA Rep #: [id number] : 1980 M 44 From: Desirae Cruz MD PCP: ERIC Anaya Status: REG ER Study:Abdomen/Pelvis W IV Cont ONLY Date of E xam: 12/29/24 Exam# [id number] Ordering Dr: Shay Cordero MD PROCEDURE: ABDOMEN/PELVIS [...] containing omental fat, without bowel. Reading Location: [place] [address] CC: YULI-C Viola Starkey; Dr. Justin Cordero MD ~ Radar Systems Engineer: Signed [facility]07-16-2025 Discharge summary Author Justin Cordero [facility] Note Date/Time December 29, 2024 10:5 0pm [facility] Medical Records Department [address] [place] [address] Emergency Department Summary 12/29/24 MR#: [id number] Acct: [id number] Name: PATRICK KOROAM Rep #:[id number] : 1980 44 From: Justin Cordero MD [...] did his other hernia repair surgeries in [place] he was told by him he could do it. He referred himto a surgeon in [place] at and they also told him they were not able to help him. Patient denies any fever. No dysuria. Denies any nausea, vomiting or diarrhea. No back pain. Prior similar symptoms: Yes Recent [facility] Medical History Seroma after procedure [...] obstruction. 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 Reading Location: [place] [address] Discharge Plan Triage Chief Complaint: Abd Pain ED Provider: Justin Cordero Dx/Rx/DC Orders Clinical Impression: Abdominal pain, Ventral hernia Instructions: ED Hernia (Adult) Prescriptions: No Action NK Primary Care Provider: Viola Starkey NP Referrals: Viola Starkey NP, BIODIESEL TECHNOLOGY MANAGER-C [Primary Care Provider] - Activity Restrictions/Additional Instructions: Call the [facility]. 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 Call their office to get an appointment. Motrin and Tylenol for pain. Print Language: Iranian Disposition Disposition: Home, Self Care What to do if you have Problems For any increased pain, shortness of breath, bleeding, nausea or vomiting, chestpain, or any unexpected problems, contact your Primary Care Provider. Call [facility] ([phone]) or report to the closest Emergency Room. Call 911 if necessary. 12/29/24 225 <Electronically signed by Justin Cordero MD> Cosigner Signature (if applicable): CC: BIODIESEL TECHNOLOGY MANAGER-C Viola Starkey ~ Signed [facility] Work Phone: 1(195) 777-537006-26-2025 Radiology Diagnostic study note [facility] Imaging Services [address] [place] [address] Abdomen/Pelvis W IV Cont ONLY MR#: [id number] Acct: [id number] Name: PATRICK KOROMA Rep #: [id number] : 1980 M 44 From: Weston Mena MD PCP: ERIC Anaya Status: REG ER Study:Abdomen/Pelvis W IV Cont ONLY Date of E xam: 12/09/24 Exam# [id number] Ordering Dr: Maru Baker DO PROCEDURE: ABDOMEN/PELVIS [...] of the stomach, probably gastritis. Reading Location: [place] [address] CC: ERIC Starkey; DO Josh Mendoza Radar Systems Engineer: Signed [facility]06-24-2025 Discharge summary [facility] Medical Records Department [address] [place] [address] Emergency Department Summary 12/07/24 MR#: [id number] Acct: [id number] Name: PATRICK KOROMA Rep #:[id number] : 1980 44 From: Guevara Choi MD PCP: ERIC Anaya Status:REG ER Location: ED HPI History of Present Illness Chief Complaint: Upper Extremity Injury Informant: patient Narrative Narrative: During tear down of a car level traction at the [facility], patient states he smashed his right thumb between 2 metal poles on accident. Wcreb-xkbh-xxsdhjyp. [facility] Medical History Seroma after procedure Influenza [...] abnormality of the right hand. Reading Location: [id number] Discharge Plan Triage Chief Complaint: Upper Extremity Injury ED Provider: Guevara Choi Dx/Rx/DC Orders Clinical Impression: Contusion of right thumb with damage to nail, initial encounter Instructions: ED Finger or Toe Contusion Prescriptions: No Action NK Primary Care Provider: Viola Starkey NP Referrals: Viola Starkey NP, BIODIESEL TECHNOLOGY MANAGER-C [Primary Care Provider] - 10-14 Days if not better Print Language: Iranian Disposition Disposition: Home, Self Care What to do if you have Problems For any increased pain, shortness of breath, bleeding, nausea or vomiting, chestpain, or any unexpected problems, contact your Primary Care Provider. Call [facility] ([phone]) or report tothe closest Emergency Room. Call 911 if necessary. 12/07/24 0013 Cosigner Signature (if applicable): CC: ERIC Starkey ~ Signed [facility]06-23-2025 Radiology Diagnostic study note [facility] Imaging Services [address] [place], [place] [address] Hand Min 3 Views MR#: [id number] Acct: [id number] Name: PATRICK KOROMA Rep #: [id number] : 1980 M 44 From: Viki Ba MD PCP: ERIC Anaya Status: PRE ER Study:Hand Min 3 Views Date of Exam: Exam# [id number] Ordering Dr: Curtis Choi MD PROCEDURE: HAND [...] ERIC Starkey; Dr. Guevara Choi MD ~ Radar Systems Engineer: Signed [facility]04-06-2025 Discharge summary [facility] Medical Records Department [address] [place] [address] Emergency Department Summary 09/19/24 MR#: [id number] Acct: [id number] Name: PATRICK KOROMA Rep #:[id number] : 1980 44 From: Brian Maldonado MD PCP: ERIC Anaya Status:REG ER Location: ED HPI History of Present Illness Chief Complaint: Upper Extremity Injury Narrative Narrative: 44-year-old male, iqyjb-nnbm-ibrwgtut, presents with injury to his right shoulder [...] raise his right arm. Denies other injuries. [facility] Medical History Seroma after procedure Influenza [...] clavicle and shoulder pain worse with movement. Fuuul-etdz-opmgsbub. Denies hitting of his head or loss [...] AC joint separation. Patient was given 1 Gilbert tablet here for analgesia and x-rays obtained [...] not improving. I feel he can take lbgw-jly-qwamwhe medications for analgesia. Return instructions to the [...] Week if not improving Viola Starkey NP, BIODIESEL TECHNOLOGY MANAGER-C [Primary Care Provider] - Activity Restrictions/Additional Instructions: You may wear the sling for comfort but exercise your right shoulder at least 3 times a day to prevent frozen shoulder. Edxl-jes-kwkgslm medications as needed for pain. Follow-up with orthopedics if not improving. Print Language: Iranian Disposition Disposition: Home, Self Care What to do if you have Problems For any increased pain, shortness of breath, bleeding, nausea or vomiting, chestpain, or any unexpected problems, contact your Primary Care Provider. Call [facility] ([phone]) or report tothe closest Emergency Room. Call 911 if necessary. 09/19/242224 Cosigner Signature (if applicable): CC: ERIC Starkey ~ Signed [facility]04-06-2025 Radiology Diagnostic study note [facility] [facility] [address] [place], [place] [address] Shoulder min 2 Views MR#: [id number] Acct: [id number] Name: PATRICK KOROMA Rep #: [id number] : 1980 M 44 From: Zuly Tena DO PCP: ERIC Anaya Status: REG ER Study:Shoulder min 2 Views Date of Exam: 09/19/24 Exam# [id number] Ordering Dr: Brian Maldonado MD PROCEDURE: SHOULDER [...] ERIC Starkey; Dr. Brian Maldonado MD ~ Radar Systems Engineer: Signed [facility]04-06-2025 Radiology Diagnostic study note [facility] Imaging Services [address] [place] [address] [phone] Clavicle MR#: [id number] Acct: [id number] Name: PATRICK KOROMA Rep #: [id number] : 1980 M 44 From: Zuly Tena DO PCP: ERIC Anaya Status: REG ER Study:Clavicle Date of Exam: 09/19/24 Exam# [id number] Ordering Dr: Brian Maldonado MD PROCEDURE: CLAVICLE 09/19/2024 REASON FOR EXAM: TRAUMA TECHNIQUE: Two views of the right clavicle were obtained COMPARISON: None FINDINGS: Bones: No acute fracture. Joints: Joint spaces are preserved. Soft tissues: No soft tissue abnormality. RAD/Clavicle IMPRESSION: NO EVIDENCE OF CLAVICLE FRACTURE Reading Location: [place] CC: ERIC Starkey; Dr. Brian Maldonado MD ~ Radar Systems Engineer: Signed [facility]04-06-2025 Discharge summary Author Brian Maldonado [facility] Note Date/Time September 19, 2024 10:2 5pm [facility] Medical Records Department [address] [place] [address] Emergency Department Summary 09/19/24 MR#: [id number] Acct: [id number] Name: PATRICK KOROMA Rep #:[id number] : 1980 44 From: Brian Maldonado MD PCP: Viola Starkey, BIODIESEL TECHNOLOGY MANAGER-C Status:REG ER Location: ED HPI History of Present Illness Chief Complaint: Upper Extremity Injury Narrative Narrative: 44-year-old male, fyykr-viwa-iasaigxv, presents with injury to his right shoulder [...] raise his right arm. Denies other injuries. [facility] Medical History Seroma after procedure Influenza [...] clavicle and shoulder pain worse with movement. Xnfyx-vvij-yegdkigb. Denies hitting of his head or loss [...] AC joint separation. Patient was given 1 Gilbert tablet here for analgesia and x-rays obtained [...] not improving. I feel he can take voqi-vqs-mxcfjon medications for analgesia. Return instructions to the [...] Week if not improving Viola Starkey NP, BIODIESEL TECHNOLOGY MANAGER-C [Primary Care Provider] - Activity Restrictions/Additional Instructions: You may wear the sling for comfort but exercise your right shoulder at least 3 times a day to prevent frozen shoulder. Xpzp-xmu-ncpjfji medications as needed for pain. Follow-up with orthopedics if not improving. Print Language: Iranian Disposition Disposition: Home, Self Care What to do if you have Problems For any increased pain, shortness of breath, bleeding, nausea or vomiting, chestpain, or any unexpected problems, contact your Primary Care Provider. Call [facility] ([phone]) or report to the closest Emergency Room. Call 911 if necessary. 09/19/242224 <Electronically signed by Brian Maldonado MD> Cosigner Signature (if applicable): CC: BIODIESEL TECHNOLOGY MANAGER-Marielos Starkey ~ Signed [facility] Work Phone: 1(430) 460-118003-11-2025 Radiology Diagnostic study note [facility] Imaging Services [address], [place] [address] Shoulder min 2 Views MR#: [id number] Acct: [id number] Name: PATRICK KOROMA Rep #: [id number] : 1980 M 44 From: Shahbaz Johnson DO PCP: Care Physician,No Primary Status: PRE ER Study:Shoulder min 2 Views Date of Exam: 08/24/24 Exam# [id number] Ordering Dr: Provider ,Ed P. PROCEDURE: Right shoulder radiographs REASON FOR EXAM: PAIN, LOSS OF MOBILITY TECHNIQUE: Four views of the right shoulder COMPARISON: None. FINDINGS: See impression RAD/Shoulder min 2 Views IMPRESSION: Negative for acute fracture or malalignment. 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 Mildacromioclavicular joint osteoarthritis. Reading Location: [facility] CC: ED PHYSICIAN PROVIDER; No Primary Care Physician ~ Radar Systems Engineer: Signed [facility]02-28-2025 History of Present illness Narrative* Stephon [...] <40). Stephon Benavides MD documented in this [facility] Work Phone: [phone]) 290-793301-14-2025 History of Present illness Narrative* Jonathan Gonzalez MD - 06/29/2024 2:45 PM EST History Of Present Illness : Patrick Cali is a 44 y.o. male who presents as a self-referral for second opinion with regard to his abdominal wall. The patient lives in [facility]. The patient has had multiple abdominal operations in the past. He had a laparoscopic appendectomy in 2000 in [place]. He thereafter had 3 operations for abdominal wall hernias by Dr. Aaron Duque at [facility]. In 2016 and 2018, he underwent laparoscopic [...] abdomen pelvis was in May 09 at [facility] in [place]. The patient has noted recurrent fullness in the mid abdomen, with associated sharp pain especially at night, since March 2024.. He denies other symptoms such as nausea vomiting diarrhea constipation changes bowel habits or blood in the stool. Patient is engaged to be to [employer] who accompanied him to the office. He has 4 children. 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 The patient [...] Not Present- Headaches, Numbness, Tingling, Seizures, Stroke, BLOW MOLDING MACHINE TENDER Shunt and Weakness. Psychiatric: Not Present- Anxiety, [...] recommendations and management plan documented in this [facility] Work Phone: 1(529) 128-977612-02-2024 Hospital Discharge instructions Patient Education 05/16/2024 22:58:38 [...] or as directed by your healthcare provider [phone] [employer]. [address] [place] [address]. All rights reserved. This information is not intended as a substitute for professional medical care. Always follow yourhealthcare professional's instructions. Follow Up Care 05/16/2024 21:33:35 With:AARON DUQUE MD, Surgery Address: [address] [facility] [address] [phone] When:2-4 days [facility] 12-01-2024 Emergency department Discharge summary Discharge Instructions Thank you for allowing [facility] to assist you with your healthcare needs. [...] Surgery When:Within 2-4 days Where:[address] [place] [address] [phone] Allergies Keflex Keppra Rash Tape, Paper Rash [...] or as directed by your healthcare provider [phone] [employer]. [address] [place] [address], [place] [address]. All rights reserved. This information is not intended as a substitute for professional medical care. Always follow yourhealthcare professional's instructions. Additional Information VACCINATE! IT SAVES LIVES! Members of the community who have not yet received the COVID-19 vaccine and would like to receive it can visit one of [facility] vaccine clinics. There are many vaccine clinic locations within the [facility]. For locations and available times, please visit www.gettheshot.coronavirus.[place].gov/. It is important to note that some COVID mobile vaccine clinics are held outdoors and may be canceled in rainy or stormy conditions. To learn more about pediatric vaccinations (ages 5-11), we invite you to visit the [facility] webpage. https://www.[facility].org/pages/8918-Ghpwx-Rwpnmgrqjfc-Wfnencstqh-Rkvyg-Hul stions.htmlTo learn more about the COVID-19 vaccine, we invite you to visit the CDC website for a list of frequently asked questions. https://www.cdc.gov/coronavirus/2019-ncov/vaccines/faq.html [facility] Patient Portal Access Instructions: Stay connected with your healthcare team and access your personal medical information anytime with the [facility] Patient Portal. If you would like a full copy of your medical records please contact the [facility] Medical Records Department Friday through Friday between 8a.m. and 4:30p.m. Please follow the directions below to access the portal: 1.Access the email account you provided upon registration to the hospital.2.Look for an invitation email from [facility].3.Open the email and access the invitation link: Accept Invitation to [facility]4.Fill in the required vegas to create your account. Sign into www.[employer] with your username and password that you [...] you will allow to register on the [facility] Patient Portal for access to your information. You can also access the [facility] Patient Portal on the [employer] randal. Simply click on Health Records under [employer] and then click on the Brett logo. [...] Call your local pharmacy or go to http://bit.SayHello [employer]/7R1Ht6v to find one close to you.3.Make use of household items: Use cat litter or old coffee grounds to dispose medications if other options arenot available. Mix your drugs with these household products, seal them in an airtight container andthrow it into the garbage. Call [facility]: [phone] to be sure your drugs can be [...] aware that I should contact my doctor. 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: Relationship to Patient: Witness Name/Signature: Date/Time: [facility] Brett [id number] Emergency department Discharge summary Discharge Instructions Thank [...] Surgery When:Within 2-4 days Where:[address] [facility] [place] [address]- [phone] Allergies Keflex Keppra Rash Tape, Paper Rash [...] or as directed by your healthcare provider [phone] [employer]. [address] [place] [address], [place] [address]. All rights reserved. This information is not intended as a substitute for professional medical care. Always follow yourhealthcare professional's instructions. Additional Information VACCINATE! IT SAVES LIVES! Members of the community who have not yet received the COVID-19 vaccine and would like to receive it can visit one of [facility] vaccine clinics. There are many vaccine clinic locations within the [facility]. For locations and available times, please visit www.gettheshot.coronavirus.[place].gov/. It is important to note that some COVID mobile vaccine clinics are held outdoors and may be canceled in rainy or stormy conditions. To learn more about pediatric vaccinations (ages 5-11), we invite you to visit the [facility] webpage. https://www.[facility].org/pages/4777-Egphq-Ifaqnkohbbd-Zkjtgecfkb-Tdhxf-Hyu stions.htmlTo learn more about the COVID-19 vaccine, we invite you to visit the CDC website for a list of frequently asked questions. https://www.cdc.gov/coronavirus/2019-ncov/vaccines/faq.html [facility] Patient Portal Access Instructions: Stay connected with your healthcare team and access your personal medical information anytime with the [facility] Patient Portal. If you would like a full copy of your medical records please contact the [facility] Medical Records Department Friday through Friday between 8a.m. and 4:30p.m. Please follow the directions below to access the portal: 1.Access the email account you provided upon registration to the [facility].2.Look for an invitation email from [facility].3.Open the email and access the invitation link: Accept Invitation to [facility]4.Fill in the required vegsa to create your account. Sign into www.[employer] with your username and password that you [...] you will allow to register on the [facility] Patient Portal for access to your information. You can also access the [facility] Patient Portal on the [employer] randal. Simply click on Health Records under [employer] and then click on the Passbox logo. HOW TO SAFELY DISPOSE OF PRESCRIPTION [...] Call your local pharmacy or go to http://bit.SayHello [employer]/4P0Mu4b to find one close to you.3.Make use of household items: Use cat litter or old coffee grounds to dispose medications if other options arenot available. Mix your drugs with these household products, seal them in an airtight container andthrow it into the garbage. Call [facility]: [phone] to be sure your drugs can be [...] aware that I should contact my doctor. 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: Relationship to Patient: Witness Name/Signature: Date/Time: [facility]12-01-2024 Note ORIGINAL EXAMINATION: CT OF THE ABDOMEN [...] Sign Date: 05/16/2024 10:27:09 PM Ordering Provider: [facility]05-07-2024 Telephone encounter Note* Telephone Encounter [...] Dr. Hannah. Christy Rodrigez RN BSN Nurse Rn Progressive Care [facility] Work Phone: [phone]) 743-461005-07-2024 Miscellaneous Notes* Telephone Encounter - Christy Rodrigez [...] Dr. Hannah. Christy Rodrigez RN BSN Nurse Rn Progressive Care * Telephone Encounter - Christy Rodrigez RN - 10/10/2023 10:21 AM EDT Neuro SPINE CARE COORDINATION QUICK NOTE Dr. Borrero received referral from Dr. Richardson. Ordered placed for spine med injection with Dr. Hannah. Called patient to advise. Received VM message 'calling restrictions that have prevented the completion of the call' MYC message sent. Christy Rodrigez RN BSN Nurse Rn Progressive Care documented in this [facility] Telephone encounter Note * Telephone Encounter - Christy Rodrigez RN - 10/10/2023 10:21 AM EDT Neuro SPINE CARE COORDINATION QUICK NOTE Dr. Borrero received referral from Dr. Richardsno. Ordered placed for spine med injection with Dr. Hannah. Called patient to advise. Received VM message 'calling restrictions that have prevented the completion of the call' MYC message sent. Christy Rodrigez RN BSN Nurse Rn Progressive Care [facility]04-02-2024 History and physical note* Gilles Graham PA-C [...] requiring medication, no history of angina, CHF, MA, cardiac surgery or stents. Denies rest pain, [...] 362 QTC Calculation (Bazett) 457 Calculated P Hitchcock 30 Calculated R Hitchcock 19 Calculated T Hitchcock 18 Impression NORMAL SINUS RHYTHM NORMAL ECG No results found for this or any previous visit (from the past 80129 hour(s)). Instructions Given to Patient: Instructions located in the after visit summary. Patient given verbal and written preop instructions and voices comprehension and compliance. SIGNATURE: Gilles Graham PA-C PATIENT NAME: Patrick Koroma DATE: September 15, 2023 TIME: 1:59 PM PAGER/CONTACT #: documented in this encounterW[facility]04-01-2024 Instructions* Patient Instructions* Gilles Graham PA-C - 09/15/2023 1:58 PM EDT PATIENT PREOPERATIVE INSTRUCTIONS Trinidad Richardson* has scheduled you for your procedure at this surgery center: [facility] Scheduling Office: [phone] --[address] [place] [address]. Please read below carefully for your personalized [...] Procedures: - YOU MUST HAVE A RESPONSIBLE TELEVISION ANTENNA INSTALLER TAKE YOU HOME. A LIFE SCIENTIST OR MARKETING ANALYTICS LEAD CANNOT BE MADE A RESPONSIBLE TELEVISION ANTENNA INSTALLER. - We recommend that a responsible person [...] call the Friday before. Your surgeon s nursing scheduler will tell you what time to call the office. - If you have not reached the departmental nursing scheduler by 5 P.M., call [phone] after 5 P.M. the day before your surgery. Please be aware that emergency situations arise, which may delay or change your surgical time. If this happens, we will notify you as soon as possible and regret any inconvenience. If you already have an Advance Directive, please fax a copy to [phone] or email to for it to be [...] day. Gilles Graham PA-C documented in this encounterW[facility]03-[facility] Hospital Discharge instructions Patient Education [...] foods again, start with small amounts of dobb-wp-xhirey, low- fat foods. These include apple sauce, [...] increase stomach acid. Don't use aspirin or eerl-edx-meecqdu pain and fever medicines, if possible. This includes nonsteroidal anti-inflammatory drugs (NSAIDs). Lose excess weight. Finish eating at least 2 hours before you go to bed or lie down. Raise the head of your bed. 5087-9004 [employer]. [address] [place] [address], [place] [address]. All rights reserved. This information is not intended as a substitute for professional medical care. Always follow yourhealthcare professional's instructions. Follow Up Care 09/11/2023 18:01:14 With:VIOLA STARKEY Address: [address] [place] [address] [phone] When:2-4 days [facility] 03-28-2024 Note Discharge Instructions Thank you for allowing [facility] to assist you with your healthcare needs. The following is importantdischarge information regarding your hospital visit. Diagnosis from Today's Visit Abdominal pain Abdominal pain What to Do Next Instructions from Your Care Team No qualifying data available. Post Acute Orders No qualifying data available. You Need to Schedule the Following Appointments Follow Up with VIOLA STARKEY When Within 2-4 days Where: [address] [place] [phone] Allergies Keflex Keppra (Rash) Tape, Paper (Rash) [...] foods again, start with small amounts of sabs-ce-tfmeid, low- fat foods. These include apple sauce, [...] increase stomach acid. Don't use aspirin or hbet-osv-zvtcqpt pain and fever medicines, if possible. This includes nonsteroidal anti-inflammatory drugs (NSAIDs). Lose excess weight. Finish eating at least 2 hours before you go to bed or lie down. Raise the head of your bed. 6498-1280 [employer]. [address] [place] [address]. All rights reserved. This information is not intended as a substitute for professional medical care. Always follow yourhealthcare professional's instructions. Additional Information VACCINATE! IT SAVES LIVES! Members of the community who have not yet received the COVID-19 vaccine and would like to receive it can visit one of [facility] vaccine clinics. There are many vaccine clinic locations within the [facility]. For locations and available times, please visit www.gettheshot.coronavirus.[place].gov/. It is important to note that some COVID mobile vaccine clinics are held outdoors and may be canceled in rainy or stormy conditions. To learn more about pediatric vaccinations (ages 5-11), we invite you to visit the [facility] webpage. https://www.[facility].org/pages/8465-Xllpu-Rmfclqeuyrz-Zuyllsfaee-Aoqmm-Dpg stions.htmlTo learn more about the COVID-19 vaccine, we invite you to visit the CDC website for a list of frequently asked questions. https://www.cdc.gov/coronavirus/2019-ncov/vaccines/faq.html [facility] Patient Portal Access Instructions: Stay connected with your healthcare team and access your personal medical information anytime with the [facility] Patient Portal. If you would like a full copy of your medical records please contact the [facility] Medical Records Department Friday through Friday between 8a.m. and 4:30p.m. Please follow the directions below to access the portal: 1.Access the email account you provided upon registration to the [facility].2.Look for an invitation email from [facility].3.Open the email and access the invitation link: Accept Invitation to [facility]4.Fill in the required vegas to create your account. Sign into www.[employer] with your username and password that you [...] you will allow to register on the [facility] Patient Portal for access to your information. You can also access the [facility] Patient Portal on the [employer]Seed randal. Simply click on Health Records under [employer] and then click on the Brett logo. [...] Call your local pharmacy or go to http://bit.SayHello [employer]/2S1Bk0z to find one close to you.3.Make use of household items: Use cat litter or old coffee grounds to dispose medications if other options arenot available. Mix your drugs with these household products, seal them in an airtight container andthrow it into the garbage. Call [facility]: [phone] to be sure your drugs can be [...] aware that I should contact my doctor. 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: Relationship to Patient: Witness Name/Signature: Date/Time: [facility] [id number] Evaluation + Plan noteExtracted from: Title:Clinical Document Author:REYES MOORE ate:08/27/23 [facility] ADMISSION HISTORY AN D PHYSICIAL CHIEF COMPLAINT: Colorectal cancer screening HISTORY OF PRESENT ILLNESS: Colorectal cancer screening, high risk, family history of colon cancer REVIEW OF SYSTEMS: Constitutional: denies weight loss Cardiovascular:denies chest pain, palpitations Respiratory:denies shortness of breath Gastrointestinal:no abd pain Musculoskeletal: no arthralgias Skin: no rashes ACTIVE PROBLEMS: (13) Acid reflux (776440655) 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 ([id number]) Electric shock (7622363704) Fall (6084469) Family history of colon cancer (143043611) Full dentures (828414050) Pain in the abdomen (31084757) Postprocedural hematoma of skin and subcutaneous tissue following other procedure (115453012) Screening for colon cancer (424430080) Seizure (925530421) TIA (786376498) Tobacco use (7449499640) Umbilical hernia (4697220599) MEDICATIONS: Active Inpt Meds: None Active PRN [...] IgG 08/07/23 * Complete Metabolic Panel 08/07/23 [facility] 03-13-2024 Hospital Discharge instructions Patient Education 08/27/2023 [...] before eating solid foods. General instructions Take jsaa-lkb-ghczrwp and prescription medicines only as told by [...] 09/22/2016 Document Revised: 08/31/2018 Document Reviewed: 09/22/2016 [employer] Patient Education 2020 [employer]. 08/27/2023 10:26:35 Colonoscopy, Adult, Care After Colonoscopy, [...] a slower pace than normal. ?Eat soft, lrme-sm-bbrqow foods. Take hovi-irq-uxnkjqx or prescription medicines only as told by [...] 01/14/2005 Document Revised: 03/25/2018 Document Reviewed: 08/13/2016 [employer] Patient Education 2020 [employer]. Follow Up Care 08/22/2023 07:36:51 With:REYES MOORE DO Clinical Gastroenterology Address: [address] [place] [phone] When:Within 1 Year(s) Comments:Repeat colonoscopy in 1 year. Will need extra bowel prep. With:VIOLA STARKEY Address: [address] [place] [phone] When: [facility] 03-13-2024 Note Discharge Instructions Thank you for allowing [facility] to assist you with your healthcare needs. [...] year. Will need extra bowel prep. Where: [address] [place] [phone] Follow Up with VIOLA STARKEY When Where: [address] [place] [phone] The Following Activity and Diet Have Been [...] before eating solid foods. General instructions Take daqe-xnf-scuaprh and prescription medicines only as told by [...] 09/22/2016 Document Revised: 08/31/2018 Document Reviewed: 09/22/2016 [employer] Patient Education 2020 [employer]. Colonoscopy, Adult, Care After This sheet gives [...] slower pace than normal. ? Eat soft, repr-ve-gqgqml foods. Take eckd-tdi-ftlneig or prescription medicines only as told by [...] 01/14/2005 Document Revised: 03/25/2018 Document Reviewed: 08/13/2016 [employer] Patient Education 2020 [employer]. Additional Information VACCINATE! IT SAVES LIVES! Members of the community who have not yet received the COVID-19 vaccine and would like to receive it can visit one of [facility] vaccine clinics. There are many vaccine clinic locations within the [facility]. For locations and available times, please visit https://[email or web address].gov/. It is important to note that some COVID mobile vaccine clinics are held outdoors and may be canceled in rainy or stormy conditions. To learn more about pediatric vaccinations (ages 5-11), we invite you to visit the [facility] webpage. https://www.[facility].org/pages/5872-Xigbi-Blgbsqymvdz-Xvpjysbqao-Eermk-Cpb stions.htmlTo learn more about the COVID-19 vaccine, we invite you to visit the CDC website for a list of frequently asked questions.https://www.cdc.gov/coronavirus/2019-ncov/vaccines/faq.html [facility] Patient Portal Access Instructions: Stay connected with your healthcare team and access your personal medical information anytime with the [facility] Patient Portal. Please follow the directions below to create your [facility] account: 1.Access the email account you provided upon registration to the hospital/physician office.2.Look for an invitation email from [facility].3.Open the email and access the invitation link: AcceptInvitation to [facility].4.Fill in the required vegas to create your account. To access your account, visit [email or web address]. Click the blue button labeled Access Patient Portal and then log in with the username and password that you created in the steps above. You will be able to view your test results, lab results, a summary of your visits, upcoming appointments and more. There is also a convenient messaging option where you can send secure messages to your MedyMatchder. In addition, you will have the ability to download any documents or summaries to your computer and/or send the information securely to a physician. Remember that your healthcare information is confidential, so carefully consider who you will allowto register on the [facility] Patient Portal for access to your information. You can also access the [facility] Patient Portal on the Brett Anywhere randal. Simply click on Patient Portal and then log into your account. If you would like to receive a full copy of your medical records, please contact the [facility] Medical Records Department by calling [phone], Friday through Friday between 8 a.m. and [...] Call your local pharmacy or go to http://[email or web address] to find one close to you.3.Make use of household items: Use cat litter or old coffee grounds to dispose medications if other options arenot available. Mix your drugs with these household products, seal them in an airtight container andthrow it into the garbage. Call [facility]: [phone] to be sure your drugs can be [...] aware that I should contact my doctor. 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: Relationship to Patient: Witness Name/Signature: Date/Time: [facility]03-13-2024 Anesthesiology Consult note Patient: PATRICK KOROMA Age: 43 years Sex: Male : 1980 Associated Diagnoses: None Author: DARIEL HITCHCOCK APRN-MIG TIG WELDER Assessment Postanesthesia assessment Vitals: Vital signs from [...] by DARIEL HITCHCOCK on 08/27/2023 10:18 AM [facility]03-13-2024 Anesthesiology Consult note Patient: PATRICK KOROMA Age: [...] Pain in the abdomen / SNOMED CT 35463680 / Confirmed Acid reflux / SNOMED CT 003414846 / Confirmed 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 / SNOMED CT [id number] / Confirmed Fall / SNOMED CT 8979960 / Confirmed Family history of colon cancer / SNOMED CT 631992244 / Confirmed Electric shock / SNOMED CT 8341347186 / Confirmed Full dentures / SNOMED CT 162304983 / Confirmed Screening for colon cancer / SNOMED CT 313000817 / Confirmed Postprocedural hematoma of skin and subcutaneous tissue following other procedure / SNOMED CT 221459957 / Confirmed Seizure / SNOMED CT 397909014 / Confirmed TIA / SNOMED CT 939318832 / Confirmed Umbilical hernia / SNOMED CT 2721591444 / Confirmed, Active Problems (13) Acid reflux 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 Electric shock Fall Family history of colon cancer Full dentures Pain in the abdomen Postprocedural hematoma of skin and subcutaneous tissue following other procedure Screening for colon cancer Seizure TIA Tobacco use Umbilical hernia Histories Past Medical History: Active TIA (334805982) Acid reflux (316802807) Seizure (108641538) Family History: Suicide Brother Congenital heart disease Brother Alcohol abuse Father () Stroke Mother Father () Diabetes Father () Colon cancer Father () Procedure history: Laparoscopic repair of recurrent umbilical hernia using synthetic mesh (2221932385) on 07/18/2022 at 42 Years. Comments: 07/23/2022 11:02 LAN - Leslie Boucher LPN OPEN REPAIR OF RECURRENT PERIUMBILICAL HERNIA WITH ANTERIOR COMPONENT SEPARATION WITH ONLAY MESH REPAIR Repair of recurrent ventral hernia (554861200) on 11/22/2021 at 41 Years. History of repair of umbilical hernia (4702597381) in 2019 at 39 Years. Appendectomy (570672358). Drain (83728723). 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 Tobacco 4Risk Assessment: High Risk 08/27/2023 Tobacco [...] Signs(last 24 hrs) Last Charted Heart Rate Dhsfeokkw02 bpm (AUG 26 09:40) WFN277 mmHg (AUG 26 09:46) DBPH 93mmHg (AUG 26 09:46) BMI42.04 (AUG 26 09:40) Measurements from flowsheet : Measurements 08/27/2023 9:40 EDT Height 184.5 cm Admission Weight 143.1 kg Weight Method Stated Holden Body Weight 79.07 kg BSA Admission 2.6 [...] Surgeon SN - CAt - Role Performed MIG TIG WELDER SN - CAt - Role Performed Focuser 1 SN - CAt - Role Performed [...] Quadrants Present Skin Temperature Warm Skin Description [place], Dry Skin Integrity Intact Skin Moisture General [...] Allergies Yes Anesthesia Extension Set Applied Yes Musical Engineer On Yes Colon Prep Results Good Consent [...] Person #1 We May Share RAINE Meyer [phone] Designated Person #1 Relationship Significant other Designated Person #2 We May Share RAINE Almeida [phone] Designated Person #2 Relationship Mother Privacy Restrictions Requested None Height 184.5 cm Admission Weight 143.1 kg Weight Method Stated Holden Body Weight 79.07 kg BSA Admission 2.6 [...] Method Explanation, Printed materials Preferred Spoken Language Iranian Preferred Written Language Iranian Information Given by Patient Patient's Current Physicians [...] Safety In Error (In Error) 08/27/2023 7:00 [facility] History and Physical . Assessment and Plan [place] Society of Anesthesiologists (ASA) physical status classification: Class III. Anesthetic Preoperative Plan Anesthetic technique: MAC. Informed consent: signed by patient. Digitally Signed by DARIEL HITCHCOCK on 08/27/2023 10:09 AM [facility]03-13-2024 Note GALATA ADMISSION HISTORY AND PHYSICIAL CHIEF COMPLAINT: Colorectal cancer screening HISTORY OF PRESENT ILLNESS: Colorectal cancer screening, high risk, family history of colon cancer REVIEW OF SYSTEMS: Constitutional: denies weight loss Cardiovascular:denies chest pain, palpitations Respiratory:denies shortness of breath Gastrointestinal:no abd pain Musculoskeletal: no arthralgias Skin: no rashes ACTIVE PROBLEMS: (13) Acid reflux (817008064) 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 ([id number]) Electric shock (0076401591) Fall (3813068) Family history of colon cancer (864329092) Full dentures (338017766) Pain in the abdomen (42042823) Postprocedural hematoma of skin and subcutaneous tissue following other procedure (850714173) Screening for colon cancer (264652527) Seizure (980644165) TIA (447127208) Tobacco use (2109509603) Umbilical hernia (5268973419) MEDICATIONS: Active Inpt Meds: None Active PRN [...] REYES MOORE DO on 08/27/2023 07:01 AM [facility]02-22-2024 Evaluation + Plan note Future Scheduled Tests Laboratory* Thyroid Stimulating Hormone 08/07/23 * Complete Blood Count 08/07/23 * Lipid Profile 08/07/23 * Hepatitis C Antibody IgG 08/07/23 * Complete Metabolic Panel 08/07/23 [facility] 02-21-2024 NoteHNO ID: [id number] Author: VICKI MERAZ APRN.BERT, ALMA Service: ? 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 He was referred by Suresh Griffiths CNP (General Surgery) [address] [place] [address]. This consultation was shared with the referral source via the [facility] electronic medical record. 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 He was referred by Suresh Griffiths CNP (General Surgery) [address] [place] [address]. This consultation was shared with the referral source via the [facility] electronic medical record. The patient [...] suspiciousactivity was identified. 08/06/2023 by Vicki Meraz APRN.TANKER DRIVER, DNP Functional Limitations: The patient has been [...] denied CHF: denied Uncontrolled HTN: denied Recent MA: denied Arrythmias: denied Afib: denied Hyperthyroid: denied [...] heart attack. Got his GED. 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 [...] which included preparing to see the patient, sbba-um-ldkb patient care, completing clinical documentation, obtaining and/or reviewing separately obtained history, performing a medically appropriate examination, counseling and educating the pat ient/family/caregiver, and ordering medications, tests, or procedures. Vicki Meraz APRN.ALMA NOEL documented [facility] NoteHNO ID: [id number] Author: TRINIDAD RICHARDSON MD Service: ? Author [...] our notes. Patient consented for study? [facility]24 NoteHNO ID: [id number] Author: VIVIANA TERESA MD Service: ? Author Type: Fellow Type: Progress Notes Filed: 07/07/2023 09:35 Note Text: [facility] - HISTORY AND PHYSICAL Chief Complaint: pain to the left of the hernia repair HPI: Patrick Koroma is a 43 year old male with PMH post traumatic seizure disorder, s/p appendectomy and multiple hernia repair who presents with pain lateral to the hernia repair site On 11/22/21 he had a robotic assisted repair of recurrent ventral hernia at [facility] with Dr Aaron Duque with removal of [...] intervention needed. Mostly neuropathic pain Viviana Teresa, [facility]01-18-2024 Note. MICRO - Microbiology PROCEDURE: Blood Culture [...] Locations *1: This test was performed at: [address] ([facility]07-03-2023 Note. MICRO - Microbiology PROCEDURE: Blood Culture [...] Locations *1: This test was performed at: [address], [address] [place] [address] ([place])07-01-2023 Note. MICRO - Microbiology PROCEDURE: Urine Culture [...] Locations *1: This test was performed at: [facility], [address] [place] [address], [phone]- , [facility] ([place])06-28-2023 Hospital Discharge instructions Patient Education 06/28/2023 16:03:23 [...] that gets worse Trouble urinating Constipation Vomiting [phone] [employer]. [address] [place] [address], [place] [address]. All rights reserved. This information is not intended as a substitute for professional medical care. Always follow yourhealthcare professional's instructions. Follow Up Care 06/28/2023 13:49:11 With:AARON DUQUE MD, Surgery Address: [address] [place] [address] [phone] When:2-4 days With:[facility] Address: [address] [place] [phone] When:2-4 days [facility] 01-13-2024 Note Discharge Instructions Thank you for allowing [facility] to assist you with your healthcare needs. [...] Surgery When Within 2-4 days Where: [address] [place] [address] [phone] Follow Up with [facility] When Within 2-4 days Where: [address] [place] [phone] Allergies Keflex Keppra (Rash) Tape, Paper (Rash) [...] that gets worse Trouble urinating Constipation Vomiting 3199-9247 [employer]. [address] [place] [address], [place] [address]. All rights reserved. This information is not intended as a substitute for professional medical care. Always follow yourhealthcare professional's instructions. Additional Information VACCINATE! IT SAVES LIVES! Members of the community who have not yet received the COVID-19 vaccine and would like to receive it can visit one of [facility] vaccine clinics. There are many vaccine clinic locations within the [facility]. For locations and available times, please visit www.gettheshot.[email or web address].[place].gov/. It is important to note that some COVID mobile vaccine clinics are held outdoors and may be canceled in rainy or stormy conditions. To learn more about pediatric vaccinations (ages 5-11), we invite you to visit the [facility] webpage. https://www.[facility].org/pages/0255-Vnuxr-Drhmvrvhuez-Krcqfoqirf-Ncxdh-Dmk stions.htmlTo learn more about the COVID-19 vaccine, we invite you to visit the CDC website for a list of frequently asked questions. https://www.cdc.gov/coronavirus/2019-ncov/vaccines/faq.html [facility] Patient Portal Access Instructions: Stay connected with your healthcare team and access your personal medical information anytime with the [facility] Patient Portal. If you would like a full copy of your medical records please contact the [facility] Medical Records Department Friday through Friday between 8a.m. and 4:30p.m. Please follow the directions below to access the portal: 1.Access the email account you provided upon registration to the [facility].2.Look for an invitation email from [facility].3.Open the email and access the invitation link: Accept Invitation to [facility]4.Fill in the required vegas to create your account. Sign into www.BelAir Networks with your username and password that you [...] you will allow to register on the [facility] Patient Portal for access to your information. You can also access the [employer] Patient Portal on the BadSeed randal. Simply click on Health Records under [employer] and then click on the Brett logo. [...] Call your local pharmacy or go to [email or web address] to find one close to you.3.Make use of household items: Use cat litter or old coffee grounds to dispose medications if other options arenot available. Mix your drugs with these household products, seal them in an airtight container andthrow it into the garbage. Call [facility]: [phone] to be sure your drugs can be [...] aware that I should contact my doctor. 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 Discharge instructions [...] foods again, start with small amounts of fxnh-oc-vbpqwl, low- fat foods. These include apple sauce, [...] increase stomach acid. Don't use aspirin or zgns-aie-ricglxk pain and fever medicines, if possible. This includes nonsteroidal anti-inflammatory drugs (NSAIDs). Lose excess weight. Finish eating at least 2 hours before you go to bed or lie down. Raise the head of your bed. 0170-6548 [employer]. [address] [place] [address]. All rights reserved. This information is not intended as a substitute for professional medical care. Always follow yourhealthcare professional's instructions. Follow Up Care 06/08/2023 17:37:31 With:Follow up with primary care provider Address:Unknown When:2-4 days [facility] 12-24-2023 Note Discharge Instructions Thank you for allowing [facility] to assist you with your healthcare needs. [...] to receive it can visit one of [facility] vaccine clinics. There are many vaccine clinic locations within the [facility]. For locations and available times, please visit www.[email or web address].[place].gov/. It is important to note that some COVID mobile vaccine clinics are held outdoors and may be canceled in rainy or stormy conditions. To learn more about pediatric vaccinations (ages 5-11), we invite you to visit the [facility] webpage. https://www.[facility].org/pages/6107-Qcxjo-Jmskzytirwq-Cwlufbufvg-Axhmn-Cja stions.htmlTo learn more about the COVID-19 vaccine, we invite you to visit the CDC website for a list of frequently asked questions. https://www.cdc.gov/coronavirus/2019-ncov/vaccines/faq.html [facility] Patient Portal Access Instructions: Stay connected with your healthcare team and access your personal medical information anytime with the [facility] Patient Portal. If you would like a full copy of your medical records please contact the [facility] Medical Records Department Friday through Friday between 8a.m. and 4:30p.m. Please follow the directions below to access the portal: 1.Access the email account you provided upon registration to the [facility].2.Look for an invitation email from [facility].3.Open the email and access the invitation link: Accept Invitation to [facility]4.Fill in the required vegas to create your [...] you will allow to register on the [facility] Patient Portal for access to your information. You can also access the [facility] Patient Portal on the ILink Global. Simply click on Health Records under [employer] and then click on the Brett logo. [...] Call your local pharmacy or go to [email or web address] to find one close to you.3.Make use of household items: Use cat litter or old coffee grounds to dispose medications if other options arenot available. Mix your drugs with these household products, seal them in an airtight container andthrow it into the garbage. Call [facility]: [phone] to be sure your drugs can be [...] aware that I should contact my doctor. 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: Relationship to Patient: Witness Name/Signature: Date/Time: [facility]12-02-2023 Hospital Discharge instructions Patient Education 05/16/2023 23:04:20 AA Blank DI (CUSTOM) Result type:CT Abd/Pelvis w/ IV Contrast Only Result date:May 16, 2023 21:13 EST Result status:Auth (Verified) Result title:CT ABD/PELVIS W/ IV CONTRAST ONLY Performed by:CHLOE LUKE MD on May 16, 2023 21:06 EST Cosigned by:LAURA MABRY DO Verified by:CHLOE LUKE MD on May 16, 2023 21:13 EST Encounter info:[id number], BRETT CALIX, Emergency, 05/16/2023 - Contributor system:Boxbee * Final Report * [id number] ORIGINAL EXAMINATION: CT OF THE ABDOMEN AND [...] Document Reviewed: 06/03/2014 ExitCare Patient Information 2015 [employer]. This information is not intended to replace [...] color of the hand or foot [employer]. [address] [place] [address]. All rights reserved. This information is not [...] Fainting or loss of consciousness Seizure [employer]. [address] [place], [place] [address]. All rights reserved. This information is not [...] foods again, start with small amounts of rlel-ag-yvvdzl, low- fat foods. These include apple sauce, [...] increase stomach acid. Don't use aspirin or draq-phl-bvxbhsv pain and fever medicines, if possible. This includes nonsteroidal anti-inflammatory drugs (NSAIDs). Lose excess weight. Finish eating at least 2 hours before you go to bed or lie down. Raise the head of your bed. 6418-1726 [employer]. [address] [place] [address]. All rights reserved. This information is not intended as a substitute for professional medical care. Always follow yourhealthcare professional's instructions. Follow Up Care 05/16/2023 20:02:25 With:Go to emergency room if symptoms worsen Address:Unknown When:2-4 days With:Follow up with primary care provider Address:Unknown When:2-4 days [facility] 12-01-2023 Note ORIGINAL EXAMINATION: CT OF THE [...] Sign Date: 05/16/2023 10:45:51 PM Ordering Provider: [facility]08-30-2023 Hospital Discharge instructions Patient Education 02/12/2023 20:11:30 [...] chest, arm, back, neck or jaw pain 2342-8745 [employer]. [address] [place] [address], [place] [address]. All rights reserved. This information is not intended as a substitute for professional medical care. Always follow yourhealthcare professional's instructions. Follow Up Care 02/12/2023 17:22:30 With:AARON DUQUE Address: [address] [place] [address] [phone] Business (1) When:2-4 days With:NONE PHYSICIAN Address:Unknown When:2-4 days [facility] 08-30-2023 Emergency department Discharge summary Discharge Instructions Thank you for allowing [facility] to assist you with your healthcare needs. The following is importantdischarge information regarding your hospital visit. Diagnosis from Today's Visit Abdominal pain What to Do Next Instructions from Your Care Team No qualifying data available. Post Acute Orders No qualifying data available. You Need to Schedule the Following Appointments Follow Up with AARON DUQUE When Within 2-4 days Where: [address] [place] [address] [phone] Business (1) Follow Up with NONE PHYSICIAN [...] chest, arm, back, neck or jaw pain 5181-6390 [employer]. [address] [place] [address], [place] [address]. All rights reserved. This information is not intended as a substitute for professional medical care. Always follow yourhealthcare professional's instructions. Additional Information VACCINATE! IT SAVES LIVES! Members of the community who have not yet received the COVID-19 vaccine and would like to receive it can visit one of [facility] vaccine clinics. There are many vaccine clinic locations within the [facility]. For locations and available times, please visit www.gettheshot.[email or web address].[place].gov/. It is important to note that some COVID mobile vaccine clinics are held outdoors and may be canceled in rainy or stormy conditions. To learn more about pediatric vaccinations (ages 5-11), we invite you to visit the [facility] webpage. https://www.[facility].org/pages/4098-Kgedr-Djxnitfudrc-Dlqixpcnfu-Zxcfx-Kzv stions.htmlTo learn more about the COVID-19 vaccine, we invite you to visit the CDC website for a list of frequently asked questions. https://www.cdc.gov/coronavirus/2019-ncov/vaccines/faq.html [facility] Patient Portal Access Instructions: Stay connected with your healthcare team and access your personal medical information anytime with the [facility] Patient Portal. If you would like a full copy of your medical records please contact the [facility] Medical Records Department Friday through Friday between 8a.m. and 4:30p.m. Please follow the directions below to access the portal: 1.Access the email account you provided upon registration to the hospital.2.Look for an invitation email from [facility].3.Open the email and access the invitation link: Accept Invitation to [facility]4.Fill in the required vegas to create your account. Sign into www.BelAir [employer] with your username and password that you [...] you will allow to register on the [employer] Patient Portal for access to your information. You can also access the [employer] Patient Portal on the BadSeed randal. Simply click on Health Records under [employer] and then click on the Passbox logo. HOW TO SAFELY DISPOSE OF PRESCRIPTION [...] Call your local pharmacy or go to [email or web address] to find one close to you.3.Make use of household items: Use cat litter or old coffee grounds to dispose medications if other options arenot available. Mix your drugs with these household products, seal them in an airtight container andthrow it into the garbage. Call [facility]: [phone] to be sure your drugs can be [...] aware that I should contact my doctor. 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 The following is importantdischarge information regarding your hospital visit. Diagnosis from Today's Visit Abdominal pain What to Do Next Instructions from Your Care Team No qualifying data available. Post Acute Orders No qualifying data available. You Need to Schedule the Following Appointments Follow Up with AARON DUQUE When Within 2-4 days Where: [address] [facility] [place] [address]- [phone] Business (1) Follow Up with NONE PHYSICIAN [...] chest, arm, back, neck or jaw pain 1652-0350 [employer]. [address] [place] [address]. All rights reserved. This information is not intended as a substitute for professional medical care. Always follow yourhealthcare professional's instructions. Additional Information VACCINATE! IT SAVES LIVES! Members of the community who have not yet received the COVID-19 vaccine and would like to receive it can visit one of [facility] vaccine clinics. There are many vaccine clinic locations within the [facility]. For locations and available times, please visit www.gettheshot.coronavirus.[place].gov/. It is important to note that some COVID mobile vaccine clinics are held outdoors and may be canceled in rainy or stormy conditions. To learn more about pediatric vaccinations (ages 5-11), we invite you to visit the [facility] webpage. https://www.[facility].org/pages/5398-Pzjmi-Lhnjfeksnzh-Lizuubzxul-Gmebq-Iaz stions.htmlTo learn more about the COVID-19 vaccine, we invite you to visit the CDC website for a list of frequently asked questions. https://www.cdc.gov/coronavirus/2019-ncov/vaccines/faq.html [facility] Patient Portal Access Instructions: Stay connected with your healthcare team and access your personal medical information anytime with the [facility] Patient Portal. If you would like a full copy of your medical records please contact the [facility] Medical Records Department Friday through Friday between 8a.m. and 4:30p.m. Please follow the directions below to access the portal: 1.Access the email account you provided upon registration to the [facility].2.Look for an invitation email from [facility].3.Open the email and access the invitation link: Accept Invitation to [facility]4.Fill in the required vegas to create your account. Sign into www.[employer] with your username and password that you [...] you will allow to register on the [facility] [facility] Patient Portal for access to your information. You can also access the [employer] Patient Portal on the [employer]. Simply click on Health Records under [employer] and then click on the Passbox logo. HOW TO SAFELY DISPOSE OF PRESCRIPTION [...] Call your local pharmacy or go to [email or web address] to find one close to you.3.Make use of household items: Use cat litter or old coffee grounds to dispose medications if other options arenot available. Mix your drugs with these household products, seal them in an airtight container andthrow it into the garbage. Call [facility]: [phone] to be sure your drugs can be [...] aware that I should contact my doctor. 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 Interpreted by: Jorgito Eteinne DO Preliminary Report By: Laura Mabry Electronically signed By Jorgito Etienne DO Dictated Date: 02/12/2023 7:28:23 PM Prelim Date: 02/12/2023 7:37:05 PM Sign Date: 02/12/2023 8:10:54 PM Ordering Provider: [facility]08-30-2023 Note Sinus rhythm RSR' in V1 or V2, probably normal variant Baseline wander in lead(s) II,III,aVF,V2 Compared to ECG at 03/08/2018 23:11:38 BORDERLINE ECG Electronic Signature: ANJEL PEÑA DO 02/12/2023 17:53:40[facility] 05-16-2023 NoteORIGINAL PROCEDURE: Fluoroscopic drainage catheter evaluation (Abscessogram) performed on 10/28/2022. INDICATION: LLQ seroma s/p drain and sclerosis. The patient reports minimal drainage recently. COMPARISON: 10/21/2022. TECHNIQUE/FINDINGS: The procedure was performed in the VIR Suite with the patient in the supine position. A automatic pilot mechanic image demonstrated position of the existing percutaneous [...] Sign Date: 10/29/2022 10:35:26 AM Ordering Provider: [facility] ([place]) 10-29-2022 NoteORIGINAL PROCEDURE: Ultrasound guided percutaneous drainage [...] Provider: [facility] ([place])10-28-2022 History and physical note IR PREPROCEDURE H&P [...] 10/10/2022 and can be found in the [facility] Electronic Medical Records ([facility]). Roshni Flores PA-C Interventional Radiology Pager [phone] IR Dept [id number] [facility] on [facility] Digitally Signed by ROSHNI FLORES PA-C on 10/28/2022 05:27 PM [id number] Note* Farrah Mcallister RN: SIGN, AUTHOR, SIGN, AUTHOR, PERFORM Event Display: IR Procedure Record Authored Date: [id number] IR Procedure Record Summary Primary Physician: Finalized Date/Time: 10/28/22 15:00:43 Pt. Name: PATRICK KOROMA/Sex: 1980 Male Med Rec #: [id number] Physician: Financial #: [id number] Pt. Type: O Room/Bed: / Admit/Disch: 10/28/22 [...] 2 Entry 3 Case Attend[facility] Portrait Vanessa, Brandie Remy Photographer Portrait Role Performed Radiologist Procedure Scrub Technologist Circulating [...] Case Attendee Farrah Mcallister RN Role Performed Focuser 1 Details Time In 10/28/22 14:40:00 Time [...] mL Medication OMNIPAQUE 300 50ML 10/PK Y-530 [facility] 7811-3778-41 Radiology Flouroscopy Fluoroscopy Used? Yes Fluoro Dose [...] Prep Prep Area Abdomen Side Left By iSerra Goff Prep Agents Chloraprep Marta Remy Hair [...] Radiology - Action Plan Outcomes Met? Yes Medical Technician Farrah Mcallister RN Completing Procedure Plan Last Modified By: Farrah Mcallister RN 10/28/22 14:51:12 Case Comments <None> Finalized By: Farrah Mcallister RN Document Signatures Signed By: Farrah Mcallister RN 10/28/22 14:58 Farrah Mcallister RN 10/28/22 15:00 [facility] 05-15-2023 Hospital Discharge instructions Patient Education 10/28/2022 14:57:53 Radiology- Procedure/Biopsy 09/29/2019 (CUSTOM) GALATA Radiology Procedure/Biopsy Discharge Instructions Interventional Radiology [facility] Services [address] [address] Today, you had a . This procedure/biopsy [...] 1 to 2 days following the procedure. Mazd-xrm-cgoqoow pain medication should be used for pain [...] instruction below: 8:00 am- 5:00 pm call [phone] After 5:00 pm call [phone] After 24 hours, contact the physician who [...] with primary care provider Address:Unknown When: Unknown [facility] 05-15-2023 Note IR Procedure Record Summary Primary Physician: Finalized Date/Time: 10/28/22 15:00:43 Pt. Name: PATRICK KOROMA/Sex: 1980 Male Med Rec #: [id number] Physician: Financial #: [id number] Pt. Type: O Room/Bed: / Admit/Disch: 10/28/22 [...] Entry 3 Case Attendee ESAU LOVE MD Photographer Portrait Brandie Mendez Photographer Portrait Role Performed Radiologist Procedure Scrub Technologist Circulating [...] Case Attendee Farrah Mcallister RN Role Performed Focuser 1 Details Time In 10/28/22 14:40:00 Time [...] mL Medication OMNIPAQUE 300 50ML 10/PK Y-530 [facility] 1300-8681-40 Radiology Flouroscopy Fluoroscopy Used? Yes Fluoro Dose [...] Radiology - Action Plan Outcomes Met? Yes Medical Technician Farrah Mcallister RN Completing Procedure Plan Last Modified By: Farrah Mcallister RN 10/28/22 14:51:12 Case Comments Finalized By: Farrah Mcallister RN Document Signatures Signed By: Farrah Mcallister RN 10/28/22 14:58 Farrah Mcallister RN 10/28/22 15:00 [id number] Summary of episode note Discharge Instructions Thank you for allowing [facility] to assist you with your healthcare needs. [...] medication providers or retail pharmacies. Education Materials GALATA Radiology Procedure/Biopsy Discharge Instructions Interventional Radiology [facility] [address] [place] [address] Today, you had a . This procedure/biopsy [...] 1 to 2 days following the procedure. Mzur-eec-bcvcaui pain medication should be used for pain [...] instruction below: 8:00 am- 5:00 pm call [phone] After 5:00 pm call [phone] After 24 hours, contact the physician who [...] to receive it can visit one of [facility] vaccine clinics. There are many vaccine clinic locations within the [facility]. For locations and available times, please visit https://[email or web address].gov/. It is important to note that some COVID mobile vaccine clinics are held outdoors and may be canceled in rainy or stormy conditions. To learn more about pediatric vaccinations (ages 5-11), we invite you to visit the [facility] webpage. https://www.[facility].org/pages/0269-Pedqs-Beeneyvujkl-Otnhrrnvjm-Zharc-Xdn stions.htmlTo learn more about the COVID-19 vaccine, we invite you to visit the CDC website for a list of frequently asked questions.https://www.cdc.gov/coronavirus/2019-ncov/vaccines/faq.html [facility] Patient Portal Access Instructions: Stay connected with your healthcare team and access your personal medical information anytime with the [employer] Patient Portal. Please follow the directions below to create your [employer] account: 1.Access the email account you provided upon registration to the hospital/physician office.2.Look for an invitation email from [facility].3.Open the email and access the invitation link: AcceptInvitation to [employer].4.Fill in the required vegas to create your account. To access your account, visit [employer]. Click the blue button labeled Access Patient [...] who you will allowto register on the [facility] Patient Portal for access to your information. You can also access the [facility] Patient Portal on the [facility] randal. Simply click on Patient Portal and then log into your account. If you would like to receive a full copy of your medical records, please contact the [facility] Medical Records Department by calling [phone], Friday through Friday between 8 a.m. and [...] Call your local pharmacy or go to [email or web address] to find one close to you.3.Make use of household items: Use cat litter or old coffee grounds to dispose medications if other options arenot available. Mix your drugs with these household products, seal them in an airtight container andthrow it into the garbage. Call [facility]: [phone] to be sure your drugs can be [...] aware that I should contact my doctor. 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 Roshni Flores PA-C Interventional Radiology Pager [phone] IR Dept [id number] Available on [employer] Future Scheduled Tests Laboratory* Basic Metabolic Panel 11/23/21 * Carbamazepine Level 11/23/21 * Complete Metabolic Panel 11/23/21 [facility] 05-15-2023 Hospital Discharge instructions Patient Education 10/28/2022 [...] come back to this facility in person. 7151-2860 [employer]. [address] [place] [address], [place] [address]. All rights reserved. This information is not intended as a substitute for professional medical care. Always follow yourhealthcare professional's instructions. Follow Up Care 10/28/2022 01:29:29 With:The IR department at [facility] Address:Unknown When:Within 1 Day(s) Comments:Follow-up as scheduled later today to have the drain removed.Return to the ED for any problems or concerns. [facility] 05-15-2023 Note Discharge Instructions Thank you for allowing [facility] to assist you with your healthcare needs. The following is importantdischarge information regarding your hospital visit. Diagnosis from Today's Visit Drain Problem Drain leakage What to Do Next Instructions from Your Care Team No qualifying data available. Post Acute Orders No qualifying data available. You Need to Schedule the Following Appointments Follow Up with The IR department at [facility] When In 1 day Why: Follow-up as [...] come back to this facility in person. 3899-2536 [employer]. [address] [place] [address]. All rights reserved. This information is not intended as a substitute for professional medical care. Always follow yourhealthcare professional's instructions. Additional Information VACCINATE! IT SAVES LIVES! Members of the community who have not yet received the COVID-19 vaccine and would like to receive it can visit one of [facility] vaccine clinics. There are many vaccine clinic locations within the [facility]. For locations and available times, please visit www.gettheshot.coronavirus.[place].gov/. It is important to note that some COVID mobile vaccine clinics are held outdoors and may be canceled in rainy or stormy conditions. To learn more about pediatric vaccinations (ages 5-11), we invite you to visit the [facility] webpage. https://www.[facility].org/pages/2058-Weecn-Uycpbfailli-Nxazvzkehb-Ijcwa-Agj stions.htmlTo learn more about the COVID-19 vaccine, we invite you to visit the CDC website for a list of frequently asked questions. https://www.cdc.gov/coronavirus/2019-ncov/vaccines/faq.html [facility] Patient Portal Access Instructions: Stay connected with your healthcare team and access your personal medical information anytime with the [facility] [facility] Patient Portal. If you would like a full copy of your medical records please contact the [facility] Medical Records Department Friday through Friday between 8a.m. and 4:30p.m. Please follow the directions below to access the portal: 1.Access the email account you provided upon registration to the [facility].2.Look for an invitation email from [facility].3.Open the email and access the invitation link: Accept Invitation to [facility]4.Fill in the required vegas to create your account. Sign into www.BelAir [employer] with your username and password that you [...] you will allow to register on the [facility] Patient Portal for access to your information. You can also access the [facility] Patient Portal on the [employer]. Simply click on Health Records under [employer] and then click on the Passbox logo. HOW TO SAFELY DISPOSE OF PRESCRIPTION [...] Call your local pharmacy or go to [email or web address] to find one close to you.3.Make use of household items: Use cat litter or old coffee grounds to dispose medications if other options arenot available. Mix your drugs with these household products, seal them in an airtight container andthrow it into the garbage. Call [facility]: [phone] to be sure your drugs can be [...] aware that I should contact my doctor. 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 The following is importantdischarge information regarding your hospital visit. Diagnosis from Today's Visit Drain Problem Drain leaking What to Do Next Instructions from Your Care Team No qualifying data available. Post Acute Orders No qualifying data available. You Need to Schedule the Following Appointments Follow Up with The IR department at [facility] When In 1 day Why: Follow-up as [...] come back to this facility in person. [phone] [employer]. [address] [place] [address], [place] [address]. All rights reserved. This information is not intended as a substitute for professional medical care. Always follow yourhealthcare professional's instructions. Additional Information VACCINATE! IT SAVES LIVES! Members of the community who have not yet received the COVID-19 vaccine and would like to receive it can visit one of [facility] vaccine clinics. There are many vaccine clinic locations within the [facility]. For locations and available times, please visit www.gettheshot.coronavirus.[place].gov/. It is important to note that some COVID mobile vaccine clinics are held outdoors and may be canceled in rainy or stormy conditions. To learn more about pediatric vaccinations (ages 5-11), we invite you to visit the [facility] webpage. https://www.Storenvys.org/pages/5691-Wdngd-Bohfzlpolub-Ylhyrpjuql-Fpiwg-Brq stions.htmlTo learn more about the COVID-19 vaccine, we invite you to visit the CDC website for a list of frequently asked questions. https://www.cdc.gov/coronavirus/2019-ncov/vaccines/faq.html [facility] Patient Portal Access Instructions: Stay connected with your healthcare team and access your personal medical information anytime with the [facility] Patient Portal. If you would like a full copy of your medical records please contact the [facility] Medical Records Department Friday through Friday between 8a.m. and 4:30p.m. Please follow the directions below to access the portal: 1.Access the email account you provided upon registration to the hospital.2.Look for an invitation email from [facility].3.Open the email and access the invitation link: Accept Invitation to [facility]4.Fill in the required vegas to create your account. Sign into www.BelAir [employer] with your username and password that you [...] you will allow to register on the [employer] Patient Portal for access to your information. You can also access the [employer] Patient Portal on the [employer]. Simply click on Health Records under [employer] and then click on the Passbox logo. HOW TO SAFELY DISPOSE OF PRESCRIPTION [...] Call your local pharmacy or go to [email or web address] to find one close to you.3.Make use of household items: Use cat litter or old coffee grounds to dispose medications if other options arenot available. Mix your drugs with these household products, seal them in an airtight container andthrow it into the garbage. Call [facility]: [phone] to be sure your drugs can be [...] aware that I should contact my doctor. 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 The following is importantdischarge information regarding your hospital visit. Diagnosis from Today's Visit Drain Problem Drain leaking What to Do Next Instructions from Your Care Team No qualifying data available. Post Acute Orders No qualifying data available. You Need to Schedule the Following Appointments Follow Up with The IR department at [facility] When In 1 day Why: Follow-up as [...] come back to this facility in person. 2064-7291 [employer]. [address] [place] [address]. All rights reserved. This information is not intended as a substitute for professional medical care. Always follow yourveterans health administrationcare professional's instructions. Additional Information VACCINATE! IT SAVES LIVES! Members of the community who have not yet received the COVID-19 vaccine and would like to receive it can visit one of [facility] vaccine clinics. There are many vaccine clinic locations within the [facility]. For locations and available times, please visit www.gettheshot.coronavirus.[place].gov/. It is important to note that some COVID mobile vaccine clinics are held outdoors and may be canceled in rainy or stormy conditions. To learn more about pediatric vaccinations (ages 5-11), we invite you to visit the [facility] webpage. https://www.[facility].org/pages/1993-Jigwc-Vgkxcofkdma-Pmznklnutd-Lfeus-Eoh stions.htmlTo learn more about the COVID-19 vaccine, we invite you to visit the CDC website for a list of frequently asked questions. https://www.cdc.gov/coronavirus/2019-ncov/vaccines/faq.html [facility] Patient Portal Access Instructions: Stay connected with your healthcare team and access your personal medical information anytime with the [facility] Patient Portal. If you would like a full copy of your medical records please contact the [facility] Medical Records Department Friday through Friday between 8a.m. and 4:30p.m. Please follow the directions below to access the portal: 1.Access the email account you provided upon registration to the [facility].2.Look for an invitation email from [facility].3.Open the email and access the invitation link: Accept Invitation to [facility]4.Fill in the required vegas to create your account. Sign into www.[employer] with your username and password that you [...] you will allow to register on the [facility] Patient Portal for access to your information. You can also access the [employer] Patient Portal on the [employer]. Simply click on Health Records under [employer] and then click on the Passbox logo. HOW TO SAFELY DISPOSE OF PRESCRIPTION [...] Call your local pharmacy or go to [email or web address] to find one close to you.3.Make use of household items: Use cat litter or old coffee grounds to dispose medications if other options arenot available. Mix your drugs with these household products, seal them in an airtight container andthrow it into the garbage. Call [facility]: [phone] to be sure your drugs can be [...] aware that I should contact my doctor. 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 Roshni Flores PA-C Interventional Radiology Pager [phone] IR Dept [id number] [facility] Future Appointments Appointment Date:10/28/2022 01:00:00 PM Scheduled Provider: Location:IR Appointment Type:IR Drainage Cath Injection for Eval Future Scheduled Tests Laboratory* Basic Metabolic Panel 11/23/21 * Carbamazepine Level 11/23/21 * Complete Metabolic Panel 11/23/21 [facility] 05-08-2023 Note* Farrah Mcallister RN: SIGN, AUTHOR, SIGN, AUTHOR, SIGN, AUTHOR, PERFORM Event Display: IR Procedure Record Authored Date: [id number] IR Procedure Record Summary Primary Physician: Finalized Date/Time: 10/21/22 10:43:31 Pt. Name: PATRICK KOROMA/Sex: 1980 Male Med Rec #: [id number] Physician: Financial #: [id number] Pt. Type: O Room/Bed: / Admit/Disch: 10/21/22 [...] Attendee ESAU LOVE MD, Brittaney RN Hultman Photographer PortraitVerito Remy Role Performed Radiologist Procedure Focuser 1 Scrub Technologist Details Time In 10/21/22 [...] Radiology - Action Plan Outcomes Met? Yes Medical Technician Farrah Mcallister RN Completing Procedure Plan Last [...] 10/21/22 10:38 Farrah Mcallister RN 10/21/22 10:43 [facility] 05-08-2023 Note IR Procedure Record Summary Primary Physician: Finalized Date/Time: 10/21/22 10:43:31 Pt. Name: PATRICK KOROMA /Sex: 1980 Male Med Rec #: [id number] Physician: Financial #: [id number] Pt. Type: O Room/Bed: / Admit/Disch: 10/21/22 [...] Tech Amanda K Role Performed Radiologist Procedure Focuser 1 Scrub Technologist Details Time In 10/21/22 [...] Radiology - Action Plan Outcomes Met? Yes Medical Technician Farrah Mcallister RN Completing Procedure Plan Last [...] 10/21/22 10:38 Farrah Mcallister RN 10/21/22 10:43 [facility]-8362 History and physical note IR PREPROCEDURE H&P [...] 10/10/2022 and can be found in the [facility] ([facility]). Roshni Flores PA-C Interventional Radiology Pager [phone] IR Dept [id number] Available on [employer] Digitally Signed by ROSHNI FLORES PA-C on 10/21/2022 09:38 AM Digitally Signed by ESAU LOVE MD on 10/21/2022 10:20 AM [id number] Note* Juliocesar Mo Photographer Portrait: SIGN, AUTHOR, PERFORM Event Display: IR Procedure Record Authored Date: [id number] IR Procedure Record Summary Primary Physician: RAMIN SAMPSON MD Finalized Date/Time: 09/12/22 14:34:18 Pt. Name: PATRICK KOROMA/Sex: 1980 Male Med Rec #: [id number] Physician: Financial #: [id number] Pt. Type: O Room/Bed: / Admit/Disch: 09/12/22 [...] SAMPSON MD, Alexis Tech Fierstos, Megan R Photographer Portrait Role Performed Primary Surgeon Scrub Technologist Circulating Technologist Details Time In 09/12/22 14:14:00 09/12/22 14:10:00 09/12/22 14:10:00 Time Out 09/12/22 14:30:00 09/12/22 14:30:00 09/12/22 14:30:00 Procedure/Preference IR Drainage Cath IR Drainage Cath IR Drainage Cath Card Injection for Eval SN Injection for Eval SN Injection for Eval SN Last Modified By: Juliocesar Mo Rad Juliocesar Mo Rad Alek Mon R Photographer Portrait 09/12/22 14:30:28 Tech 09/12/22 14:30:28 Tech 09/12/22 14:30:28 Entry 4 Case Attendee Brandie Mendez Photographer Portrait Role Performed Focuser 1 Details Time In 09/12/22 14:10:00 Time Out 09/12/22 14:30:00 Procedure/Preference IR Drainage Cath Card Injection for Eval SN Last Modified By: Juliocesar Mo R Photographer Portrait 09/12/22 14:30:28 Radiology Procedures- IR Entry 1 Procedure/Preference IR Drainage Cath Actual Procedure ir drain cath inj for Card Injection for Eval SN eval sn Primary Procedure Yes Primary Surgeon RAMIN SAMPOSN MD Anesthesia/Sedation None Type Additional Procedure Times Start 09/12/22 14:14:00 Stop 09/12/22 14:25:00 Specialty Service SN Radiology Procedure EBL 0 mL Last Modified By: Juliocesar Mo R Photographer Portrait 09/12/22 14:30:33 Radiology Procedure Details - IR Entry 1 Radiology Sedation Case Times Sedation Total Time 0 Radiology - Fluid/Drainage Radiology Contrast Contrast Used? Yes Dose 10 mL Medication OMNIPAQUE 300 50ML 10/PK Y-530 NDC 4226-0275-38 Radiology Flouroscopy Fluoroscopy Used? Yes Fluoro Dose [...] the drain. Last Modified By: Juliocesar Mo [employer] 09/12/22 14:34:10 General Case Data - IR Entry 1 Case Information Room AH IR 18 Case Level IR Level 2 Wound Class None Specialty SN Radiology Procedure ASA Class None Diagnosis Preop Diagnosis LLQ Seroma Postop Same As Preop Yes Postop Diagnosis LLQ Seroma Last Modified By: Juliocesar Mo [employer] 09/12/22 14:17:00 Procedure Case Times- IR Entry 1 Patient In Procedure Patient In OR 09/12/22 14:10:00 Patient Out of OR 09/12/22 14:30:00 Procedure Start/Stop Procedure Start Time 09/12/22 14:14:00 Procedure Stop Time 09/12/22 14:25:00 Last Modified By: Juliocesar Mo [employer] 09/12/22 14:30:24 Immediate Post Procedure Note - IR Entry 1 Immediate Post Yes Findings Successful drain cath Procedure Note sclerosis w/ etoh 9 ml displayed for Physician to review Closure Technique Closure Technique Other than Primary Last Modified By: Juliocesar Mo [employer] 09/12/22 14:30:14 Immediate Post Procedure Note - IR Signed By: RAMIN SAMPSON MD 09/12/22 14:27 Allergy Information- IR Entry 1 Allergies Reviewed? Yes Allergies Reviewed Patient With Last Modified By: Juliocesar Mo [employer] 09/12/22 14:12:52 Radiology Protocols/Time Out- IR Entry [...] results are properly Tech, Vanessa, labeled and Digital Sportsa Devang Photographer Portrait appropriately displayed, Alcohol based prep dry Instrument Sterility Team Members Vadim Berrios Verifying Sterility Procedure IR Drainage Cath Injection for Eval SN Last Modified By: Juliocesar Mo Photographer Portrait 09/12/22 14:15:05 Skin Prep- IR Entry 1 Procedure IR Drainage Cath Injection for Eval SN Skin Prep Prep Area Abdomen Side Left By Vadim Berrios Prep Agents Chloraprep Hair Removal Method N/A Last Modified By: Juliocesar Mo Photographer Portrait 09/12/22 14:15:32 Patient Positioning- IR Entry 1 Procedure IR Drainage Cath Body Position OP Supine Injection for Eval SN Feet Uncrossed? Yes Pressure Points n/a Checked Last Modified By: Juliocesar Mo Photographer Portrait 09/12/22 14:15:44 Radiology Procedure Plan - IR [...] symptoms of electrical injury. Outcomes Met? Yes Medical Technician Juliocesar Mo Rad Completing Tech Procedure Plan Last Modified By: Juliocesar Mo Photographer Portrait 09/12/22 14:16:26 Case Comments <None> Finalized By: Juliocesar Mo Tech Document Signatures Signed By: Juliocesar Mo 09/12/22 14:34 [facility] 03-30-2023 Hospital Discharge instructions Patient Education 09/12/2022 14:26:09 Radiology- Procedure/Biopsy 09/29/2019 (CUSTOM) [facility] Radiology Procedure/Biopsy Discharge Instructions Interventional Radiology [facility] [address] [address] Today, you had a . This procedure/biopsy [...] 1 to 2 days following the procedure. Tjzu-kie-hqaxzgp pain medication should be used for pain [...] instruction below: 8:00 am- 5:00 pm call [phone] After 5:00 pm call [phone] After 24 hours, contact the physician who [...] with primary care provider Address:Unknown When: Unknown [facility] 03-30-2023 Interventional radiology Progress note IR Brief [...] MARSHALL CROCKER PA-C on 09/12/2022 04:08 PM [id number] Note IR Procedure Record Summary Primary Physician: RAMIN SAMPSON MD Finalized Date/Time: 09/12/22 14:34:18 Pt. Name: GA PATRICK Cesar SauerB./Sex: 1980 Male Med Rec #: [id number] Physician: Financial #: [id number] Pt. Type: O Room/Bed: / Admit/Disch: 09/12/22 [...] Mo Rad Juliocesar Mo Rad Juliocesar Mo Photographer Portrait 09/12/22 14:30:28 Tech 09/12/22 14:30:28 Tech 09/12/22 14:30:28 Entry 4 Case Attendee VanessaBrandie gray Devang Photographer Portrait Role Performed Focuser 1 Details Time In 09/12/22 14:10:00 Time Out 09/12/22 14:30:00 Procedure/Preference IR Drainage Cath Card Injection for Eval SN Last Modified By: Juliocesar Mo Photographer Portrait 09/12/22 14:30:28 Radiology Procedures- IR Entry 1 Procedure/Preference IR Drainage Cath Actual Procedure ir drain cath inj for Card Injection for Eval SN eval sn Primary Procedure Yes Primary Surgeon RAMIN SAMPSON MD Anesthesia/Sedation None Type Additional Procedure Times Start 09/12/22 14:14:00 Stop 09/12/22 14:25:00 Specialty Service SN Radiology Procedure EBL 0 mL Last Modified By: Juliocesar Mo Photographer Portrait 09/12/22 14:30:33 Radiology Procedure Details - IR Entry 1 Radiology Sedation Case Times Sedation Total Time 0 Radiology - Fluid/Drainage Radiology Contrast Contrast Used? Yes Dose 10 mL Medication OMNIPAQUE 300 50ML 10/PK Y-530 [facility] 1054-3405-32 Radiology Flouroscopy Fluoroscopy Used? Yes Fluoro Dose [...] the drain. Last Modified By: Juliocesar Mo Photographer Portrait 09/12/22 14:34:10 General Case Data - IR Entry 1 Case Information Room AH IR 18 Case Level IR Level 2 Wound Class None Specialty SN Radiology Procedure ASA Class None Diagnosis Preop Diagnosis LLQ Seroma Postop Same As Preop Yes Postop Diagnosis LLQ Seroma Last Modified By: Juliocesar Mo R Photographer Portrait 09/12/22 14:17:00 Procedure Case Times- IR Entry 1 Patient In Procedure Patient In OR 09/12/22 14:10:00 Patient Out of OR 09/12/22 14:30:00 Procedure Start/Stop Procedure Start Time 09/12/22 14:14:00 Procedure Stop Time 09/12/22 14:25:00 Last Modified By: Juliocesar Mo R Photographer Portrait 09/12/22 14:30:24 Immediate Post Procedure Note - IR Entry 1 Immediate Post Yes Findings Successful drain cath Procedure Note sclerosis w/ etoh 9 ml displayed for Physician to review Closure Technique Closure Technique Other than Primary Last Modified By: Juliocesar Mo R Photographer Portrait 09/12/22 14:30:14 Immediate Post Procedure Note - IR Signed By: RAMIN SAMPSON MD 09/12/22 14:27 Allergy Information- IR Entry 1 Allergies Reviewed? Yes Allergies Reviewed Patient With Last Modified By: Juliocesar Mo R Photographer Portrait 09/12/22 14:12:52 Radiology Protocols/Time Out- IR Entry [...] properly Tech, Vanessa, labeled and Terra L Photographer Portrait appropriately displayed, Alcohol based prep dry Instrument Sterility Team Members Vadim Berrios Verifying Sterility Procedure IR Drainage Cath Injection for Eval SN Last Modified By: Juliocesar Mo R Photographer Portrait 09/12/22 14:15:05 Skin Prep- IR Entry 1 [...] n/a Checked Last Modified By: Juliocesar Mo Photographer Portrait 09/12/22 14:15:44 Radiology Procedure Plan - IR [...] symptoms of electrical injury. Outcomes Met? Yes Medical Technician Juliocesar Mo Mozido Procedure Plan Last Modified By: Juliocesar Mo 09/12/22 14:16:26 Case Comments Finalized By: Juliocesar Mo Document Signatures Signed By: Juliocesar Mo Tech 09/12/22 14:34 [id number] Summary of episode note Discharge Instructions Thank you for allowing [facility] to assist you with your healthcare needs. [...] medication providers or retail pharmacies. Education Materials [facility] Radiology Procedure/Biopsy Discharge Instructions Interventional Radiology [facility] [address] [place] [address] Today, you had a . This procedure/biopsy [...] 1 to 2 days following the procedure. Pblm-loc-sdjeapj pain medication should be used for pain [...] instruction below: 8:00 am- 5:00 pm call [phone] After 5:00 pm call [phone] After 24 hours, contact the physician who [...] to receive it can visit one of [facility] vaccine clinics. There are many vaccine clinic locations within the [facility]. For locations and available times, please visit [email or web address]/. It is important to note that some COVID mobile vaccine clinics are held outdoors and may be canceled in rainy or stormy conditions. To learn more about pediatric vaccinations (ages 5-11), we invite you to visit the [facility] webpage. https://www.[facility].org/pages/3200-Liqop-Wegueguvnji-Hxmqmneifh-Sabsj-Jac stions.htmlTo learn more about the COVID-19 vaccine, we invite you to visit the CDC website for a list of frequently asked questions. https://www.cdc.gov/coronavirus/2019-ncov/vaccines/faq.html [facility] Patient Portal Access Instructions: Stay connected with your healthcare team and access your personal medical information anytime with the [facility] Patient Portal.If you would like a full copy of your medical records, please contact the [facility] Medical Records Department, Friday through Friday between 8a.m. and 4:30p.m. Please follow the directions below to access the portal: 1.Access the email account you provided upon registration to the hospital.2.Look for an invitation email from [facility].3.Open the email and access the invitation link: Accept Invitation to [facility]4.Fill in the required vegas to create your account. Sign into www.[employer] with your username and password that you [...] you will allow to register on the [employer] [facility] Patient Portal for access to your information. You can also access the [facility] Patient Portal on the [employer]. Simply click on Health Records under [employer] and then click on the [employer] logo. HOW TO SAFELY DISPOSE OF PRESCRIPTION [...] Call your local pharmacy or go to [email or web address] to find one close to you.3.Make use of household items: Use cat litter or old coffee grounds to dispose medications if other options arenot available. Mix your drugs with these household products, seal them in an airtight container andthrow it into the garbage. Call [facility]: [phone] to be sure your drugs can be [...] aware that I should contact my doctor. 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 _ Future Scheduled Tests Laboratory* Basic Metabolic Panel 11/23/21 * Carbamazepine Level 11/23/21 * Complete Metabolic Panel 11/23/21 [facility] 03-30-2023 History and physical note IR PREPROCEDURE [...] paper, which has been scanned into the [facility] PACS/RIS system. _ Digitally Signed by MARSHALL CROCKER PA-C on 09/12/2022 01:30 PM [facility] OhioTxbvwykb03-79-1087 Evaluation + Plan noteExtracted from: Title:IR pre-procedure [...] 08/28/2022 and can be found in the [facility] ([employer]). Harriet Leonard PA-C Interventional Radiology Pager: [phone] IR dept: [phone] Available on [facility] Future Appointments Appointment Date:09/12/2022 02:00:00 PM Scheduled Provider: Location:IR Appointment Type:IR Drainage Cath Injection for Eval Future Scheduled Tests Laboratory* Basic Metabolic Panel 11/23/21 * Carbamazepine Level 11/23/21 * Complete Metabolic Panel 11/23/21 [facility] 03-23-2023 Hospital Discharge instructions Patient Education 09/05/2022 11:49:33 Radiology- Procedure/Biopsy 09/29/2019 (CUSTOM) [facility] Radiology Procedure/Biopsy Discharge Instructions Interventional Radiology [facility] [address] [address] Today, you had a Drain insertion . [...] 1 to 2 days following the procedure. Phai-ivy-sqjxamg pain medication should be used for pain [...] instruction below: 8:00 am- 5:00 pm call [phone] After 5:00 pm call [phone] After 24 hours, contact the physician who [...] with primary care provider Address:Unknown When: Unknown [facility] 03-23-2023 Note* IBETH Regalado Riley: SIGN, AUTHOR, PERFORM Event Display: IR Procedure Record Authored Date: [id number] IR Procedure Record Summary Primary Physician: ROSHNI FLORES PA-C Finalized Date/Time: 09/05/22 11:48:45 Pt. Name: GAPATRICK./Sex: 1980 Male Med Rec #: [id number] Physician: Financial #: [id number] Pt. Type: O Room/Bed: / Admit/Disch: 09/05/22 [...] Case Attendee ROSHNI FLORES Jacque M. Allen, Photographer Portrait Tatyana ZARATE Role Performed Primary Surgeon Scrub [...] 4 Case Attendee IBETH Regalado Role Performed Focuser 1 Details Time In 09/05/22 11:21:00 Time [...] Radiology - Action Plan Outcomes Met? Yes Medical Technician IBETH Regalado Completing Procedure Plan Last Modified By: IBETH Regalado 09/05/22 11:26:48 Case Comments <None> Finalized By: IBETH Regalado Document Signatures Signed By: IBETH Regalado 09/05/22 11:48 [facility] 03-23-2023 History and physical note IR PREPROCEDURE [...] 08/28/2022 and can be found in the [facility] ([employer]). Harriet Leonard PA-C Interventional Radiology Pager: [phone] IR dept: [phone] Available on [employer] Digitally Signed by HARRIET LEONARD PA-C on 09/05/2022 11:54 AM Digitally Signed by ESAU LOVE MD on 09/05/2022 03:20 PM [facility] OhioMdqsgbca70-40-3535 Summary of episode note Discharge Instructions Thank you for allowing [facility] to assist you with your healthcare needs. [...] medication providers or retail pharmacies. Education Materials [facility] Radiology Procedure/Biopsy Discharge Instructions Interventional Radiology [facility] [address] [place] [address] Today, you had a Drain insertion . [...] 1 to 2 days following the procedure. Thuf-yji-yjgyznf pain medication should be used for pain [...] instruction below: 8:00 am- 5:00 pm call [phone] After 5:00 pm call [phone] After 24 hours, contact the physician who [...] to receive it can visit one of [facility] vaccine clinics. There are many vaccine clinic locations within the [facility]. For locations and available times, please visit [email or web address]/. It is important to note that some COVID mobile vaccine clinics are held outdoors and may be canceled in rainy or stormy conditions. To learn more about pediatric vaccinations (ages 5-11), we invite you to visit the [facility] webpage. https://www.[facility].org/pages/9845-Vrsez-Mzevbxjfnax-Jutbshbmmc-Abttw-Ghx stions.htmlTo learn more about the COVID-19 vaccine, we invite you to visit the CDC website for a list of frequently asked questions. https://www.cdc.gov/coronavirus/2019-ncov/vaccines/faq.html [facility] Patient Portal Access Instructions: Stay connected with your healthcare team and access your personal medical information anytime with the [facility] Patient Portal.If you would like a full copy of your medical records, please contact the [facility] Medical Records Department, Friday through Friday between 8a.m. and 4:30p.m. Please follow the directions below to access the portal: 1.Access the email account you provided upon registration to the hospital.2.Look for an invitation email from [facility].3.Open the email and access the invitation link: Accept Invitation to [facility]4.Fill in the required vegas to create your account. Sign into www.[employer] with your username and password that you [...] you will allow to register on the [facility] Patient Portal for access to your information. You can also access the [facility] Patient Portal on the [employer]. Simply click on Health Records under [employer] and then click on the [employer] logo. HOW TO SAFELY DISPOSE OF PRESCRIPTION [...] Call your local pharmacy or go to [email or web address] to find one close to you.3.Make use of household items: Use cat litter or old coffee grounds to dispose medications if other options arenot available. Mix your drugs with these household products, seal them in an airtight container andthrow it into the garbage. Call [facility]: [phone] to be sure your drugs can be [...] aware that I should contact my doctor. 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 Name: GA PATRICK Cesar Reyes./Sex: 1980 Male Med Rec #: [id number] Physician: Financial #: [id number] Pt. Type: O Room/Bed: / Admit/Disch: 09/05/22 [...] Case Attendee ROSHNI FLORES Jacque M. Allen, Photographer PortraitVerito Joe PA-C Role Performed Primary Surgeon Scrub [...] 4 Case Attendee IBETH Regalado Role Performed Focuser 1 Details Time In 09/05/22 11:21:00 Time [...] ZARATE Jacque Relevant images and Fermín Mejía Photographer Portrait results are properly Sabine Joe RN Corey [...] Radiology - Action Plan Outcomes Met? Yes Medical Technician IBETH Regalado Completing Procedure Plan Last Modified By: IBETH Rgealado 09/05/22 11:26:48 Case Comments Finalized By: IBETH Regalado Document Signatures Signed By: IBETH Regalado 09/05/22 11:48 [facility] OhioYylajtmf57-40-4271 Hospital Discharge instructions Patient Education 08/28/2022 21:50:43 [...] up Rapid heart rate Shortness of breath 0028-1279 [employer]. [address] [place] [address]. All rights reserved. This information is not intended as a substitute for professional medical care. Always follow yourhealthcare professional's instructions. Follow Up Care 08/28/2022 19:04:00 With:AARON DUQUE MD, Surgery Address: [address] [phone] When:2-4 days [facility] 03-15-2023 Emergency department Discharge summary Discharge Instructions Thank you for allowing [facility] to assist you with your healthcare needs. [...] Where: [address] [facility] [address] [place] [address] [phone] Allergies Keflex Keppra (Rash) Tape, Paper (Rash) morphine (Rash) naproxen Medications Please ask your primary doctor or pharmacist before taking any other medication not listed, including over the counter drugs, herbal medications, vitamins and or supplements as they may interact withyour home medications. What How Much When Why Instructions Last Dose New acetaminophen-hydrocodone (Gilbert 325- 5 mg oral tablet) 1 tab(s) [...] up Rapid heart rate Shortness of breath [phone] [employer]. [address] [place] [address]. All rights reserved. This information is not intended as a substitute for professional medical care. Always follow yourhealthcare professional's instructions. Additional Information VACCINATE! IT SAVES LIVES! Members of the community who have not yet received the COVID-19 vaccine and would like to receive it can visit one of [facility] vaccine clinics. There are many vaccine clinic locations within the [facility]. For locations and available times, please visit www.[email or web address].[place].gov/. It is important to note that some COVID mobile vaccine clinics are held outdoors and may be canceled in rainy or stormy conditions. To learn more about pediatric vaccinations (ages 5-11), we invite you to visit the [facility] webpage. https://www.[facility].org/pages/2950-Lbkhz-Zvqajieinwp-Klufxdrroc-Aebob-Bgy stions.htmlTo learn more about the COVID-19 vaccine, we invite you to visit the CDC website for a list of frequently asked questions. https://www.cdc.gov/coronavirus/2019-ncov/vaccines/faq.html [facility] Patient Portal Access Instructions: Stay connected with your healthcare team and access your personal medical information anytime with the [facility] Patient Portal. If you would like a full copy of your medical records please contact the [facility] Medical Records Department Friday through Friday between 8a.m. and 4:30p.m. Please follow the directions below to access the portal: 1.Access the email account you provided upon registration to the hospital.2.Look for an invitation email from [facility].3.Open the email and access the invitation link: Accept Invitation to [facility]4.Fill in the required vegas to create your account. Sign into www.BelAir Networks with your username and password that you [...] you will allow to register on the [employer] Patient Portal for access to your information. You can also access the [employer] Patient Portal on the BadSeed randal. Simply click on Health Records under [employer] and then click on the Passbox logo. HOW TO SAFELY DISPOSE OF PRESCRIPTION [...] Call your local pharmacy or go to [email or web address] to find one close to you.3.Make use of household items: Use cat litter or old coffee grounds to dispose medications if other options arenot available. Mix your drugs with these household products, seal them in an airtight container andthrow it into the garbage. Call [facility]: [phone] to be sure your drugs can be [...] aware that I should contact my doctor. 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 [address] [place] [address]. All rights reserved. This information is not intended as a substitute for professional medical care. Always follow yourhealthcare professional's instructions. Follow Up Care 08/18/2022 11:30:43 With:AARON DUQUE MD, Surgery Address: [address] [facility] [place] [address] [phone] When:2-4 days [facility] 03-05-2023 Note ORIGINAL EXAMINATION: CT OF THE [...] 08/18/2022 4:08:21 PM Ordering Provider: JONELLE GERARD [id number] Emergency department Discharge summary Discharge Instructions Thank [...] Surgery When Within 2-4 days Where: [address] [facility] [place] [address]- [phone] Allergies Keflex Keppra (Rash) Tape, Paper (Rash) morphine (Rash) naproxen Medications Please ask your primary doctor or pharmacist before taking any other medication not listed, including over the counter drugs, herbal medications, vitamins and or supplements as they may interact withyour home medications. What How Much When Why Instructions Last Dose New acetaminophen-hydrocodone (Gilbert 325- 5 mg oral tablet) 1 tab(s) [...] up Rapid heart rate Shortness of breath [id number] [employer]. [address] [place] [address]. All rights reserved. This information is not intended as a substitute for professional medical care. Always follow yourhealthcare professional's instructions. Additional Information VACCINATE! IT SAVES LIVES! Members of the community who have not yet received the COVID-19 vaccine and would like to receive it can visit one of [facility] vaccine clinics. There are many vaccine clinic locations within the [facility]. For locations and available times, please visit www.gettheshot.coronavirus.[place].gov/. It is important to note that some COVID mobile vaccine clinics are held outdoors and may be canceled in rainy or stormy conditions. To learn more about pediatric vaccinations (ages 5-11), we invite you to visit the [facility] webpage. https://www.[facility].org/pages/2813-Tcdad-Otpanrarxlq-Edouqawqsl-Nzdsb-Zdm stions.htmlTo learn more about the COVID-19 vaccine, we invite you to visit the CDC website for a list of frequently asked questions. https://www.cdc.gov/coronavirus/2019-ncov/vaccines/faq.html [facility] Patient Portal Access Instructions: Stay connected with your healthcare team and access your personal medical information anytime with the [facility] Patient Portal. If you would like a full copy of your medical records please contact the [facility] Medical Records Department Friday through Friday between 8a.m. and 4:30p.m. Please follow the directions below to access the portal: 1.Access the email account you provided upon registration to the [facility].2.Look for an invitation email from [facility].3.Open the email and access the invitation link: Accept Invitation to [facility]4.Fill in the required vegas to create your account. Sign into [email or web address] with your username and password that you [...] you will allow to register on the [facility] Patient Portal for access to your information. You can also access the [facility] Patient Portal on the BadSeed randal. Simply click on Health Records under [employer] and then click on the Brett logo. [...] Call your local pharmacy or go to [email or web address] to find one close to you.3.Make use of household items: Use cat litter or old coffee grounds to dispose medications if other options arenot available. Mix your drugs with these household products, seal them in an airtight container andthrow it into the garbage. Call [facility]: [phone] to be sure your drugs can be [...] aware that I should contact my doctor. 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 You don t need a prescription. [phone] [employer]. [address] [place] [address]. All rights reserved. This information is not intended as a substitute for professional medical care. Always follow yourhealthcare professional's instructions. Follow Up Care 07/22/2022 10:03:39 With:Call Physician Referral Address:Unknown When:2-4 days With:Follow up with primary care provider Address:Unknown When:2-4 days [facility] 02-06-2023 Note Discharge Instructions Thank you for allowing [facility] to assist you with your healthcare needs. [...] Why Instructions Last Dose Unchanged acetaminophen- hydrocodone (Gilbert 325- 5 mg oral tablet) 1 tab(s) [...] stores. You don t need a prescription. [phone] [employer]. [address] [place] [address]. All rights reserved. This information is not intended as a substitute for professional medical care. Always follow yourhealthcare professional's instructions. Additional Information VACCINATE! IT SAVES LIVES! Members of the community who have not yet received the COVID-19 vaccine and would like to receive it can visit one of [facility] vaccine clinics. There are many vaccine clinic locations within the [facility]. For locations and available times, please visit www.gettheshot.coronavirus.[place].org. It is important to note that some COVID mobile vaccine clinics are held outdoors and may be canceled in rainy orstormy conditions. To learn more about pediatric vaccinations (ages 5-11), we invite you to visit the [facility] webpage. https://www.Storenvys.org/pages/4132-Iqqys-Lbwavytvykz-Koazvdxdvq-Nzjlr-Dlt stions.htmlTo learn more about the COVID-19 vaccine, we invite you to visit the [facility] website for a list of frequently asked questions. [email or web address]-[email or web address]/zgmga-Lsulith-[email or web address] _Asked-Questions.pdf [facility] Patient Portal Access Instructions: Stay connected with your healthcare team and access your personal medical information anytime with the [facility] Patient Portal. If you would like a full copy of your medical records please contact the [facility] Medical Records Department Friday through Friday between 8a.m. and 4:30p.m. Please follow the directions below to access the portal: 1.Access the email account you provided upon registration to the [facility].2.Look for an invitation email from [facility].3.Open the email and access the invitation link: Accept Invitation to [facility]4.Fill in the required vegas to create your account. Sign into www.BelAir Networks with your username and password that you [...] you will allow to register on the [employer] Patient Portal for access to your information. You can also access the [employer] Patient Portal on the ILink Global. Simply click on Health Records under [employer] and then click on the Passbox logo. HOW TO SAFELY DISPOSE OF PRESCRIPTION [...] Call your local pharmacy or go to [email or web address] to find one close to you.3.Make use of household items: Use cat litter or old coffee grounds to dispose medications if other options arenot available. Mix your drugs with these household products, seal them in an airtight container andthrow it into the garbage. Call [facility]: [phone] to be sure your drugs can be [...] aware that I should contact my doctor. 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 Blanco Shaw History of Present Illness 42-year-old male who underwent an open repair of a recurrent umbilical/ventral hernia with anteriorcomponent separation here at [place] 4 days ago. The patient states that [...] He admits that he was taking his Gilbert on schedule every 6 hours and not [...] vomiting due to the regular use of Gilbert taking it as scheduled every 6 hours [...] works for him. Avoid using any further Gilbert unless absolutely necessary and take regular doses of Tylenol alternating with ibuprofen. As his nausea resolves hopefully over the next couple days he can reintroduce solid food. Slowly. He will have a follow-up on in the office. 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 I donot think [...] Medications Inpatient No active inpatient medications Home Gilbert 325- 5 mg oral tablet, 1 tab(s), [...] AARON DUQUE MD on 07/22/2022 01:23 PM [facility]02-06-2023 Note ORIGINAL EXAMINATION: CT OF THE [...] 07/22/2022 11:41:58 AM Ordering Provider: RADHA YI [facility]02-06-2023 Note ORIGINAL EXAMINATION: CT OF THE [...] Sign Date: 07/22/2022 11:41:58 AM Ordering Provider: [facility]02-02-2023 Hospital Discharge instructions Patient Education [...] Document Reviewed: 06/21/2019 Elsevier Patient Education 2020 [employer] Inc. 07/18/2022 11:53:21 How to Use an [...] as possible. If the spirometer includes a job coach/job developer indicator, use this to guide you in [...] 10/13/2007 Document Revised: 06/25/2018 Document Reviewed: 04/15/2018 [employer]Side.com Patient Education 2020 [employer]. 07/18/2022 11:45:57 Surgical Drain Home Care Surgical [...] placed at your back, or any other fpgp-lh-awzlj area, ask another person to assist you [...] and water are not available, use hand operating systems specialist. 3.Remove the old dressing. Avoid using scissors [...] and water are not available, use hand operating systems specialist. 3.Loosen any pins or clips that hold [...] placed at your back, or any other yngv-qi-eyyde area, ask another person to assist you. Contact your health care provider if you have redness, swelling, or pain around your drain area. This information is not intended to replace advice given to you by your health care provider. Make sure you discuss any questions you have with your health care provider. Document Released: 05/30/2001 Document Revised: 07/07/2019 Document Reviewed: 07/07/2019 LaunchSide.com Patient Education 2020 Elsevier Inc. 07/18/2022 11:45:56 [...] Document Reviewed: 06/03/2014 ExitCare Patient Information 2015 [employer]. This information is not intended to replace [...] garbage bag. Soap and water, or hand operating systems specialist. Wound cleanser or salt-water solution (saline). New [...] soap and water are notavailable, use hand operating systems specialist. 3.Set up a clean station for wound [...] soap and water are notavailable, use hand operating systems specialist. Clean your wound Wear gloves, protective clothing, [...] soap and water are notavailable, use hand operating systems specialist. Apply new dressing Wear gloves, protective clothing, [...] soap and water are notavailable, use hand operating systems specialist. 8.Turn the pump back on. The sponge dressing should collapse. Do not change the settings on the machine without talking to a health care provider. 9.Replace the container in the pump that collects fluid if it is full. Replace the container per the bail bonding agent's instructions or at least once a week, [...] all clamps are open. Do not use udfa-tur-zttbeek medicated or antiseptic creams, sprays, liquids, or [...] 08/24/2012 Document Revised: 09/24/2019 Document Reviewed: 08/20/2019 LaunchSide.com Patient Education 2020 [employer]. 07/18/2022 11:39:25 Nausea and Vomiting, Adult Nausea [...] water added (diluted fruit juice). Eat bland, ntnu-fd-blnmgi foods in small amounts as you are able. These foods include bananas, applesauce, rice, lean meats, toast, and crackers. Avoid fluids that contain a lot of sugar or caffeine, such as energy drinks, sports drinks, and soda. Avoid alcohol. Avoid spicy or fatty foods. General instructions Take bdej-wbd-ijqgprx and prescription medicines only as told by your health care provider. Drink enough fluid to keep your urine pale yellow. Wash your hands often using soap and water. If soap and water are not available, use hand operating systems specialist. Make sure that all people in your [...] eating and drinking to prevent dehydration. Take pcgd-ypz-kszxxkr and prescription medicines only as told by [...] 06/02/2006 Document Revised: 09/24/2019 Document Reviewed: 11/10/2018 LaunchSide.com Patient Education 2020 [employer]. 07/18/2022 11:39:15 Monitored Anesthesia Care, Care After [...] before eating solid foods. General instructions Take xnwy-wkt-ychoibd and prescription medicines only as told by [...] 09/22/2016 Document Revised: 08/31/2018 Document Reviewed: 09/22/2016 LaunchSide.com Patient Education 2020 [employer]. 07/18/2022 11:39:09 Open Hernia Repair, Adult, Care [...] and water are not available, use hand operating systems specialist. ?Change your dressing as told by your [...] your urine clear or pale yellow. ?Take dcpi-ayb-ezwkevi or prescription medicines. ?Eat foods that are high in fiber, such as fresh fruits and vegetables, whole grains, and beans. ?Limit foods that are high in fat and processed sugars, such as fried and sweet foods. Take mkng-llo-nicymrv and prescription medicines only as told by [...] 12/20/2005 Document Revised: 05/15/2018 Document Reviewed: 11/13/2016 ElseFund Recs Patient Education 2020 [employer] Inc. Follow Up Care 07/02/2022 10:17:34 With:AARON DUQUE MD, Surgery Address: [address] [facility] [place] [place] [address]- [phone] When:07/25/2022 10:00:00 Comments:Follow-up as scheduled [facility] 02-02-2023 Summary of episode note Discharge Instructions [...] to schedule follow up appointment. Where: [address] [place] [address] [phone] The Following Activity and Diet Have Been Ordered for You Discharge Activity - Ordered -- Sexual [place] Restricted No bending, twisting, crawling or squatt, [...] When Why Instructions Last Dose New acetaminophen-hydrocodone (Gilbert 325- 5 mg oral tablet) 1 tab(s) by mouth Every 4 hours as needed for Pain, scale 4-6 Acute post-operative pain Duration: 7 Days [facility]up at [id number] Unchanged carBAMazepine (TEGretol 200 mg oral tablet) 3 tab(s) by mouth Two (2) times a day Seizure Post-operative state s/p umbilical hernia repair, possible seizure following surgery Pharmacy Information [id number]: [address], [place] [phone] Please take this list to your next [...] as possible. If the spirometer includes a job coach/job developer indicator, use this to guide you in [...] 10/13/2007 Document Revised: 06/25/2018 Document Reviewed: 04/15/2018 LaunchSide.com Patient Education 2020 [employer] Inc. Surgical Drain Home Care Surgical drains [...] placed at your back, or any other nkdc-do-bzylv area, ask another person to assist you [...] and water are not available, use hand operating systems specialist. 3. Remove the old dressing. Avoid using [...] and water are not available, use hand operating systems specialist. 3. Loosen any pins or clips that [...] placed at your back, or any other snal-me-bhxib area, ask another person to assist you. Contact your health care provider if you have redness, swelling, or pain around your drain area. This information is not intended to replace advice given to you by your health care provider. Make sure you discuss any questions you have with your health care provider. Document Released: 05/30/2001 Document Revised: 07/07/2019 Document Reviewed: 07/07/2019 ElseFund Recs Patient Education 2019 [employer]. Ryan Pantoja Drain Patient Education After surgery, [...] 06/02/2006 Document Revised: 05/19/2013 Document Reviewed: 06/03/2014 [facility] Patient Information 2015 W[employer]. This information is not intended to replace [...] garbage bag. Soap and water, or hand operating systems specialist. Wound cleanser or salt-water solution (saline). New [...] and water are not available, use hand operating systems specialist. 3. Set up a clean station for [...] and water are not available, use hand operating systems specialist. Clean your wound Wear gloves, protective clothing, [...] and water are not available, use hand operating systems specialist. Apply new dressing Wear gloves, protective clothing, [...] and water are not available, use hand operating systems specialist. 8. Turn the pump back on. The sponge dressing should collapse. Do not change the settings on the machine without talking to a health care provider. 9. Replace the container in the pump that collects fluid if it is full. Replace the container per the bail bonding agent's instructions or at least once a week, [...] all clamps are open. Do not use zvit-qfe-vptevbt medicated or antiseptic creams, sprays, liquids, or [...] 08/24/2012 Document Revised: 09/24/2019 Document Reviewed: 08/20/2019 LaunchSide.com Patient Education 2020 [employer] Inc. Nausea and Vomiting, Adult Nausea is [...] water added (diluted fruit juice). Eat bland, pjjt-te-yeburc foods in small amounts as you are able. These foods include bananas, applesauce, rice, lean meats, toast, and crackers. Avoid fluids that contain a lot of sugar or caffeine, such as energy drinks, sports drinks, and soda. Avoid alcohol. Avoid spicy or fatty foods. General instructions Take ebvo-doi-mqzftvy and prescription medicines only as told by your health care provider. Drink enough fluid to keep your urine pale yellow. Wash your hands often using soap and water. If soap and water are not available, use hand operating systems specialist. Make sure that all people in your [...] eating and drinking to prevent dehydration. Take evcc-oad-mjsdsvi and prescription medicines only as told by [...] 06/02/2006 Document Revised: 09/24/2019 Document Reviewed: 11/10/2018 LaunchSide.com Patient Education 2020 [employer]. Monitored Anesthesia Care, Care After These instructions [...] before eating solid foods. General instructions Take bdvh-ypa-znaetma and prescription medicines only as told by [...] 09/22/2016 Document Revised: 08/31/2018 Document Reviewed: 09/22/2016 [employer]Side.com Patient Education 2020 [employer]. Open Hernia Repair, Adult, Care After This [...] and water are not available, use hand operating systems specialist. ? Change your dressing as told by [...] urine clear or pale yellow. ? Take uiir-ajg-enyignq or prescription medicines. ? Eat foods that are high in fiber, such as fresh fruits and vegetables, whole grains, and beans. ? Limit foods that are high in fat and processed sugars, such as fried and sweet foods. Take cbkm-sep-icxdhdp and prescription medicines only as told by [...] 12/20/2005 Document Revised: 05/15/2018 Document Reviewed: 11/13/2016 LaunchSide.com Patient Education 2020 [employer] Inc. Additional Information VACCINATE! IT SAVES LIVES! Members of the community who have not yet received the COVID-19 vaccine and would like to receive it can visit one of [facility] vaccine clinics. There are many vaccine clinic locations within the State. For locations and available times, please visit https://[email or web address].[place].gov/. It is important to note that some COVID mobile vaccine clinics are held outdoors and may be canceled in rainy or stormy conditions. To learn more about pediatric vaccinations (ages 5-11), we invite you to visit the [facility] webpage. https://www.[facility].org/pages/8014-Rxqgl-Cmhpgwdzikq-Ltjsggshar-Hclqe-Zhf stions.htmlTo learn more about the COVID-19 vaccine, we invite you to visit the [employer] website for a list of frequently asked questions. [email or web address]/zjdem-Ialnhyy-Cxwaxinqwo _Asked-Questions.pdf [facility] Patient Portal Access Instructions: Stay connected with your healthcare team and access your personal medical information anytime with the [facility] Patient Portal.If you would like a full copy of your medical records, please contact the [facility] Medical Records Department, Friday through Friday between 8a.m. and 4:30p.m. Please follow the directions below to access the portal: 1.Access the email account you provided upon registration to the hospital.2.Look for an invitation email from [facility].3.Open the email and access the invitation link: Accept Invitation to [facility]4.Fill in the required vegas to create your account. Sign into www.BelAir Networks with your username and password that you [...] you will allow to register on the [facility] Patient Portal for access to your information. You can also access the [facility] Patient Portal on the BadSeed randal. Simply click on Health Records under [employer] and then click on the Passbox logo. HOW TO SAFELY DISPOSE OF PRESCRIPTION MEDICATIONS Please use one of the following methods to safely dispose of your unused medications. 1.Use a drug disposal kit: the drug disposal pouch allows you to safely discard your old and unuseddrugs. Ask your nurse to give you one when you are dischar (more content not included)... 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 / SNOMED CT [id number] / Confirmed Fall / SNOMED CT 9205806 / Confirmed Electric shock / SNOMED CT 6977684464 / Confirmed Full dentures / SNOMED CT 991130622 / Confirmed Postprocedural hematoma of skin and subcutaneous tissue following other procedure / SNOMED CT 876243946 / Confirmed Seizure / SNOMED CT 191637350 / Confirmed TIA / SNOMED CT 560411521 / Confirmed Umbilical hernia / SNOMED CT [id number] / Confirmed, Active Problems (10) Acid reflux 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 Electric shock Fall Full dentures Postprocedural hematoma of skin and subcutaneous tissue following other procedure Seizure TIA Tobacco use Umbilical hernia Histories Past Medical History: Active TIA (869293979) Acid reflux (277096958) Seizure (539714955) Family History: Congenital heart disease Brother Stroke Mother Father Procedure history: Repair of recurrent ventral hernia (237209388) on 11/22/2021 at 41 Years. History of repair of umbilical hernia (7866475615) in 2019 at 39 Years. Appendectomy (070217647). Social History Social & Psychosocial Habits Alcohol [...] Signs(last 24 hrs) Last Charted Heart Rate Dnjjtandh14 bpm (JUL 18 08:50) Resp Rate 18 br/min (JUL 18 06:48) LXM728 mmHg (JUL 18 08:50) DBP68 mmHg (JUL 18 08:50) Measurements from flowsheet : Measurements 07/18/2022 6:48 EST Height 188 cm Admission Weight 134 kg Holden Body Weight 82.24 kg Admission Body Mass [...] Method N/A 07/18/2022 8:02 EST SN - MA - Medication MARCAINE BUPIVACAINE 0.5% 30ML SN - MA - Route of Administration Local SN - MA - Route of Administration Local SN - MA - By (Single) SN - MA - By (Single) SN - MA - By (Single) SN - MA - By (Single) 07/18/2022 7:57 EST SN - PP - Body Position Supine Standard Intra-op 07/18/2022 7:56 EST SN - PTCare - Anti-thromboembolism Ayla Sequential Compression Device (SCD) 07/18/2022 7:49 EST SN - CAt - Case Attendee SN - CAt - Case Attendee SN - CAt - Case Attendee SN - CAt - Case Attendee SN - CAt - Role Performed MIG TIG WELDER SN - CAt - Role Performed Airflight Attendants Supervisor 1 07/18/2022 7:30 EST Primary Pain Intensity [...] Surgeon SN - CAt - Role Performed Focuser 1 SN - CAt - Role Performed Scrub 1 07/18/2022 7:12 EST Infectious Disease Symptoms Patient states no symptoms Safety Brochure Information Reviewed Unable to complete Brett Mcneal Video Viewed No Teaching Evaluation Needs practice/supervision Admission Note-Nursing Same Day Patient History (Modified) 07/18/2022 7:10 EST Lactated Ringers Injection Begin Bag 1,000 mL mL 07/18/2022 6:48 EST Height 188 cm Admission Weight 134 kg Holden Body Weight 82.24 kg Admission Body Mass [...] no difficulties Skin Temperature Warm Skin Description [place], Dry Skin Integrity Intact Mucous Membrane Color [place] IV Present Present Continuous IV Infusions LR [...] Cooperative Orientation Oriented x 4 Allergies Yes Musical Engineer On Yes Consent Form Signed Yes Patient [...] Void 07/18/2022 7:01 . Assessment and Plan [place] Society of Anesthesiologists (ASA) physical status classification: Class III. Anesthetic Preoperative Plan Premedication: intravenous. Anesthetic technique: General. Induction: intravenously. Maintenance airway: Oral endotracheal tube. Postoperative pain management: Per surgeon. Risks discussed: nausea, vomiting, sore throat. Informed consent: signed by patient. Digitally Signed by SOFÍA OROZCO on 07/18/2022 09:03 AM [facility]01-30-2023 Evaluation + Plan note Future Appointments Diagnostic Tests Pending * [facility] Lab Send out (Blood Specimens) 07/15/22 Future Scheduled Tests Laboratory* Basic Metabolic Panel 11/23/21 * Carbamazepine Level 11/23/21 * Complete Metabolic Panel 11/23/21 [facility] 01-30-2023 Hospital Discharge instructions Patient Education 07/15/2022 [...] told. 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 [address] [place] [address]. All rights reserved. This information is not intended as a substitute for professional medical care. Always follow yourhealthcare professional's instructions. Follow Up Care 07/15/2022 00:22:57 With:[facility] Address: When:2-4 days [facility] 01-30-2023 Note Discharge Instructions Thank you for allowing [facility] to assist you with your healthcare needs. The following is importantdischarge information regarding your hospital visit. Diagnosis from Today's Visit Seizure disorder, Seizure Possible Seizure What to Do Next Instructions from Your Care Team No qualifying data available. Post Acute Orders No qualifying data available. You Need to Schedule the Following Appointments Follow Up with [facility] When Within 2-4 days Where: Allergies [...] told. 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 [address] [place] [address]. All rights reserved. This information is not intended as a substitute for professional medical care. Always follow yourhealthcare professional's instructions. Additional Information VACCINATE! IT SAVES LIVES! Members of the community who have not yet received the COVID-19 vaccine and would like to receive it can visit one of [facility] vaccine clinics. There are many vaccine clinic locations within the [facility]. For locations and available times, please visit [email or web address]. It is important to note that some COVID mobile vaccine clinics are held outdoors and may be canceled in rainy orstormy conditions. To learn more about pediatric vaccinations (ages 5-11), we invite you to visit the [facility] webpage. https://www.[email or web address].org/pages/8363-Ijywz-Xdvomoqydme-Ibyfawsoux-Yhtbt-Vrz stions.htmlTo learn more about the COVID-19 vaccine, we invite you to visit the [facility] website for a list of frequently asked questions. [email or web address] great [email or web address]-[email or web address]/wusfe-Axrqlwe-Rnefoublww _Asked-Questions.pdf [facility] Patient Portal Access Instructions: Stay connected with your healthcare team and access your personal medical information anytime with the [facility] Patient Portal. If you would like a full copy of your medical records please contact the [facility] Medical Records Department Friday through Friday between 8a.m. and 4:30p.m. Please follow the directions below to access the portal: 1.Access the email account you provided upon registration to the [facility].2.Look for an invitation email from [facility].3.Open the email and access the invitation link: Accept Invitation to [facility]4.Fill in the required vegas to create your account. Sign into [email or web address] with your username and password that you [...] you will allow to register on the [facility] Patient Portal for access to your information. You can also access the [facility] Patient Portal on the BadSeed randal. Simply click on Health Records under [employer] and then click on the Brett logo. [...] Call your local pharmacy or go to http://[email or web address]/[email or web address] to find one close to you.3.Make use of household items: Use cat litter or old coffee grounds to dispose medications if other options arenot available. Mix your drugs with these household products, seal them in an airtight container andthrow it into the garbage. Call [facility]: [phone] to be sure your drugs can be [...] aware that I should contact my doctor. 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 The [place] [employer] Association recommends the following guidelines for [...] face You have problems speaking or seeing 2904-2386 [employer]. [address] [place] [address]. All rights reserved. This information is not [...] or as directed by your healthcare provider 8784-4218 [employer]. [address] [place] [address], [place] [address]. All rights reserved. This information is not [...] foods again, start with small amounts of lvyl-om-kejztg, low- fat foods. These include apple sauce, [...] increase stomach acid. Don't use aspirin or xzmo-hmy-sakbprk pain and fever medicines, if possible. This includes nonsteroidal anti-inflammatory drugs (NSAIDs). Lose excess weight. Finish eating at least 2 hours before you go to bed or lie down. Raise the head of your bed. 4742-8845 [employer]. [address] [place] [address]. All rights reserved. This information is not [...] the referral doctor. With:AARON DUQUE Address: [address] [facility] [address] [facility] [place] [address]- [phone] Business (1) When:2-4 days Comments:Schedule an appointment for close follow-up.Continue Tylenol for pain as needed.Use Gilbert as prescribed for severe pain as needed.Return to the ED if symptoms worsen. [facility] Brett Calix 01-13-2023 Note Discharge Instructions Thank [...] Continue Tylenol for pain as needed. Use Gilbert as prescribed for severe pain as needed. Return to the ED if symptoms worsen. Where: [address] [facility] [address] [facility] [place] [address]- [phone] Business (1) Allergies Keflex Keppra (Rash) Tape, Paper (Rash) morphine (Rash) naproxen Medications Please ask your primary doctor or pharmacist before taking any other medication not listed, including over the counter drugs, herbal medications, vitamins and or supplements as they may interact withyour home medications. What How Much When Why Instructions Last Dose New acetaminophen-hydrocodone (Gilbert 325- 5 mg oral tablet) 1 tab(s) [...] blood pressure monitors at most pharmacies. The [place] Heart Association recommends the following guidelines for [...] face You have problems speaking or seeing 4100-0042 [employer]. [address] [place] [address], [place] [address]. All rights reserved. This information is not [...] or as directed by your healthcare provider 3370-1572 [employer]. [address] [place] [address]. All rights reserved. This information is not [...] foods again, start with small amounts of jtwz-ir-yjkbec, low- fat foods. These include apple sauce, [...] increase stomach acid. Don't use aspirin or htkr-xzi-nlagsog pain and fever medicines, if possible. This includes nonsteroidal anti-inflammatory drugs (NSAIDs). Lose excess weight. Finish eating at least 2 hours before you go to bed or lie down. Raise the head of your bed. 9808-9091 [employer]. [address] [place] [address], [place] [id number]. All rights reserved. This information is not intended as a substitute for professional medical care. Always follow yourhealthcare professional's instructions. Additional Information VACCINATE! IT SAVES LIVES! Members of the community who have not yet received the COVID-19 vaccine and would like to receive it can visit one of [facility] vaccine clinics. There are many vaccine clinic locations within the [facility]. For locations and available times, please visit [email or web address]. It is important to note that some COVID mobile vaccine clinics are held outdoors and may be canceled in rainy orstormy conditions. To learn more about pediatric vaccinations (ages 5-11), we invite you to visit the [facility] webpage. https://www.[email or web address].org/pages/3827-Ahtpo-Uwhdvljpgoe-Ovtslgncci-Nspgq-Wdq stions.htmlTo learn more about the COVID-19 vaccine, we invite you to visit the [facility] website for a list of frequently asked questions. [email or web address] _[email or web address].pdf [facility] Patient Portal Access Instructions: Stay connected with your healthcare team and access your personal medical information anytime with the [facility] Patient Portal. If you would like a full copy of your medical records please contact the [facility] Medical Records Department Friday through Friday between 8a.m. and 4:30p.m. Please follow the directions below to access the portal: 1.Access the email account you provided upon registration to the [facility].2.Look for an invitation email from [facility].3.Open the email and access the invitation link: Accept Invitation to [facility]4.Fill in the required vegas to create your [...] you will allow to register on the [facility] Patient Portal for access to your information. You can also access the [facility] Patient Portal on the BadSeed randal. Simply click on Health Records under [employer] and then click on the Brett logo. [...] Call your local pharmacy or go to [email or web address] to find one close to you.3.Make use of household items: Use cat litter or old coffee grounds to dispose medications if other options arenot available. Mix your drugs with these household products, seal them in an airtight container andthrow it into the garbage. Call [facility]: [phone] to be sure your drugs can be [...] aware that I should contact my doctor. 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01-12-2023 Note ORIGINAL EXAMINATION: CT OF THE ABDOMEN [...] Sign Date: 06/27/2022 11:27:05 PM Ordering Provider: [facility]01-05-2023 Hospital Discharge instructions* Discharge Instructions* ERIC Mandel - 06/20/2022 12:31 AM EST Please take medication as prescribed Please follow up with your Physicians as instructed in this discharge paperwork Thank you for choosing [facility] I appreciate your patience Please return to the emergency department if your symptoms worsen, or new symptoms develop as discussed documented in this [facility]01-04-2023 Emergency department Note* ERIC Mandel - 06/19/2022 7:06 PM EST [facility] EMERGENCY DEPARTMENT ENCOUNTER Pt Name: Patrick [...] patient come from an ECF, SNF, Rehab, Long-Term or other Congregate setting: no (If yes [...] HISTORY Past Medical History: Diagnosis Date Seizures ([facility]) SURGICAL HISTORY Past Surgical History: [...] upper and lower extremities bilateral with normal gem cutter strength, normal plantar flexion and dorsiflexion. Skin: Findings: No erythema or rash. Neurological: General: No focal deficit present. Mental Status: He is oriented to person, place, and time. Comments: Cranial Nerves 2-12 are intact without without any neurological deficits Normal kxgdtm-na-syjbtx, yezlnf-yi-bccl, alternating hands, heel to tong test bilateral [...] Discharge 06/20/2022 12:30:39 AM PATIENT REFERRED TO: [facility] [address] [facility] [address] [facility] [address] Schedule an appointment as soon as possible for a visit in 2 days [facility] [address] [facility] [phone] Schedule an appointment as soon as possible for a visit in 1 week [facility] [address] [facility] [address] Go to If symptoms worsen DISCHARGE MEDICATIONS: New Prescriptions No medications on file (Please note: Portions of this note were completed with a voice recognition program. Efforts were made to edit thedictations but occasionally words and phrases are mis-transcribed.) Form v2016.J.5-cn ERIC Mandel (electronically signed) Emergency Medicine Provider ERIC Mandel 06/20/22 0034 ERIC Mandel 06/20/22 0038 documented in this [facility]01-04-2023 Physician Emergency department Note* ERIC Mandel - 06/19/2022 7:06 PM EST [facility] EMERGENCY DEPARTMENT ENCOUNTER Pt Name: Patrick [...] patient come from an ECF, SNF, Rehab, Long-Term or other Congregate setting: no (If yes [...] HISTORY Past Medical History: Diagnosis Date Seizures ([facility]) SURGICAL HISTORY Past Surgical History: [...] upper and lower extremities bilateral with normal gem cutter strength, normal plantar flexion and dorsiflexion. Skin: Findings: No erythema or rash. Neurological: General: No focal deficit present. Mental Status: He is oriented to person, place, and time. Comments: Cranial Nerves 2-12 are intact without without any neurological deficits Normal xojnct-tq-hdgvmg, zrlzlm-rf-vfsn, alternating hands, heel to tong test bilateral [...] none Procedures FINAL IMPRESSION 1. Seizure (CMS/HCC) ([facility]) DISPOSITION/PLAN DISPOSITION Discharge 06/20/2022 12:30:39 AM PATIENT REFERRED TO: [facility] [address] [facility] [address] [facility] [phone] Schedule an appointment as soon as possible for a visit in 2 days [facility] [address] [place] [phone] Schedule an appointment as soon as possible for a visit in 1 week [facility] [address] [facility] [phone] Go to If symptoms worsen DISCHARGE MEDICATIONS: New Prescriptions No medications on file (Please note: Portions of this note were completed with a voice recognition program. Efforts were made to edit thedictations but occasionally words and phrases are mis-transcribed.) Form v2016.J.5-cn ERIC Mandel (electronically signed) Emergency Medicine Provider ERIC Mandel 06/20/224 ERIC Mandel 06/20/22 0038 [facility] Phone: [phone] 512-928212-17-2022 Hospital Discharge instructions Patient Education 05/31/2022 23:54:43 [...] or as directed by your healthcare provider 3101-4450 [employer]. [address] [place] [address]. All rights reserved. This information is not [...] blue color of the hand or foot 3983-8378 [employer]. [address] [place] [address], [place] [address]. All rights reserved. This information is not intended as a substitute for professional medical care. Always follow yourhealthcare professional's instructions. Follow Up Care 05/31/2022 21:06:21 With:AARON DUQUE Address: [address] [facility] [address] [place] [phone] Business (1) When:3-7 days Comments:Schedule appointment for follow-up.Use Tylenol or Motrin for pain as needed.Use Gilbert as prescribedfor severe pain as needed.Return to the ED if symptoms worsen. [facility] 12-17-2022 Note Discharge Instructions Thank you for allowing [facility] to assist you with your healthcare needs. [...] or Motrin for pain as needed. Use Gilbert as prescribed for severe pain as needed. Return to the ED if symptoms worsen. Where: [address] [phone] Business (1) Allergies Keflex Keppra (Rash) Tape, Paper (Rash) morphine (Rash) naproxen Medications Please ask your primary doctor or pharmacist before taking any other medication not listed, including over the counter drugs, herbal medications, vitamins and or supplements as they may interact withyour home medications. What How Much When Why Instructions Last Dose New acetaminophen-hydrocodone (Gilbert 325- 5 mg oral tablet) 1 tab(s) [...] or as directed by your healthcare provider 5594-5615 [employer]. [address] [place] [address], [place] [address]. All rights reserved. This information is not [...] blue color of the hand or foot 9479-3358 [employer]. [address] [place] [address], [place] [address]. All rights reserved. This information is not intended as a substitute for professional medical care. Always follow yourhealthcare professional's instructions. Additional Information VACCINATE! IT SAVES LIVES! Members of the community who have not yet received the COVID-19 vaccine and would like to receive it can visit one of [facility] vaccine clinics. There are many vaccine clinic locations within the [facility]. For locations and available times, please visit [email or web address]. It is important to note that some COVID mobile vaccine clinics are held outdoors and may be canceled in rainy orstormy conditions. To learn more about pediatric vaccinations (ages 5-11), we invite you to visit the [facility] webpage. https://www.[facility].org/pages/7817-Yxors-Otkinjuccxt-Invllqpkna-Bzeca-Cqb stions.htmlTo learn more about the COVID-19 vaccine, we invite you to visit the [facility] website for a list of frequently asked questions. [email or web address] _[email or web address] [facility] Patient Portal Access Instructions: Stay connected with your healthcare team and access your personal medical information anytime with the [facility] Patient Portal. If you would like a full copy of your medical records please contact the [facility] Medical Records Department Friday through Friday between 8a.m. and 4:30p.m. Please follow the directions below to access the portal: 1.Access the email account you provided upon registration to the [facility].2.Look for an invitation email from [facility].3.Open the email and access the invitation link: Accept Invitation to [facility]4.Fill in the required vegas to create your account. Sign into www.[email or web address] Networks with your username and password that you [...] you will allow to register on the [facility] Patient Portal for access to your information. You can also access the [facility] Patient Portal on the BadSeed randal. Simply click on Health Records under [employer] and then click on the Passbox logo. HOW TO SAFELY DISPOSE OF PRESCRIPTION [...] Call your local pharmacy or go to [email or web address] to find one close to you.3.Make use of household items: Use cat litter or old coffee grounds to dispose medications if other options arenot available. Mix your drugs with these household products, seal them in an airtight container andthrow it into the garbage. Call [facility]: [phone] to be sure your drugs can be [...] aware that I should contact my doctor. 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 box printer a hot shower or usea vaporizer. Be [...] mouth Spotted, red, or very sore throat 2333-2257 [employer]. [address] [place] [address]. All rights reserved. This information is not intended as a substitute for professional medical care. Always follow yourhealthcare professional's instructions. Follow Up Care 05/27/2022 17:56:54 With:Go to emergency room if symptoms worsen Address:Unknown When:2-4 days With:Call Physician Referral Address:Unknown When:2-4 days [facility] 12-12-2022 Note ORIGINAL EXAMINATION: ONE XRAY VIEW [...] 05/27/2022 7:25:51 PM Ordering Provider: LEORA KHAN [facility] Brettjessica [id number] Note Discharge Instructions Thank you for allowing [facility] to assist you with your healthcare needs. [...] humidified air to open blocked nasal passages. box printer a hot shower or usea vaporizer. Be [...] mouth Spotted, red, or very sore throat 3268-1310 [employer]. [address] [place] [address], [place] [address]. All rights reserved. This information is not intended as a substitute for professional medical care. Always follow yourhealthcare professional's instructions. Additional Information VACCINATE! IT SAVES LIVES! Members of the community who have not yet received the COVID-19 vaccine and would like to receive it can visit one of [facility] vaccine clinics. There are many vaccine clinic locations within the [facility]. For locations and available times, please visit [email or web address]. It is important to note that some COVID mobile vaccine clinics are held outdoors and may be canceled in rainy orstormy conditions. To learn more about pediatric vaccinations (ages 5-11), we invite you to visit the [facility] webpage. https://www.[facility].org/pages/3370-Afpye-Zfkmmbapifz-Coefkhxgsg-Dxote-Evn stions.htmlTo learn more about the COVID-19 vaccine, we invite you to visit the [facility] website for a list of frequently asked questions. https://[email or web address]/assets/Ptxfrlgy-rby-Zlsqmuin/kgqqk-Himquqr-Hgxynronfc _Asked-Questions.pdf [facility] Patient Portal Access Instructions: Stay connected with your healthcare team and access your personal medical information anytime with the [facility] Patient Portal. If you would like a full copy of your medical records please contact the [facility] Medical Records Department Friday through Friday between 8a.m. and 4:30p.m. Please follow the directions below to access the portal: 1.Access the email account you provided upon registration to the hospital.2.Look for an invitation email from [facility].3.Open the email and access the invitation link: Accept Invitation to [facility]4.Fill in the required vegas to create your account. Sign into www.BelAir Networks with your username and password that you [...] you will allow to register on the [facility] Patient Portal for access to your information. You can also access the [facility] Patient Portal on the [employer]. Simply click on Health Records under [employer] and then click on the Passbox logo. HOW TO SAFELY DISPOSE OF PRESCRIPTION [...] Call your local pharmacy or go to [email or web address] to find one close to you.3.Make use of household items: Use cat litter or old coffee grounds to dispose medications if other options arenot available. Mix your drugs with these household products, seal them in an airtight container andthrow it into the garbage. Call [facility]: [phone] to be sure your drugs can be [...] aware that I should contact my doctor. 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 [address] [place] [address], [place] [address]. All rights reserved. This information is not intended as a substitute for professional medical care. Always follow yourhealthcare professional's instructions. Follow Up Care 03/14/2022 22:45:58 With:RHONDA ERICKSON Address: [address] [place] [address] [phone] Business (1) When:2-4 days With:Call Physician Referral Address:Unknown When:2-[address] [facility] [address] Note Discharge Instructions Thank you for allowing [facility] to assist you with your healthcare needs. The following is importantdischarge information regarding your hospital visit. Diagnosis from Today's Visit Headache What to Do Next Instructions from Your Care Team No qualifying data available. Post Acute Orders No qualifying data available. You Need to Schedule the Following Appointments Follow Up with RHONDA ERICKSON When Within 2-4 days Where: [address] [place] [address] [phone] Business (1) Follow Up with Call Physician [...] the ears or bruising around the eyes [phone] [employer]. [address] [place] [address], [place] [address]. All rights reserved. This information is not intended as a substitute for professional medical care. Always follow yourhealthcare professional's instructions. Additional Information VACCINATE! IT SAVES LIVES! Members of the community who have not yet received the COVID-19 vaccine and would like to receive it can visit one of [facility] vaccine clinics. There are many vaccine clinic locations within the [facility]. For locations and available times, please visit [email or web address]. It is important to note that some COVID mobile vaccine clinics are held outdoors and may be canceled in rainy orstormy conditions. To learn more about pediatric vaccinations (ages 5-11), we invite you to visit the [facility] webpage. https://www.[facility].org/pages/9287-Tgskl-Wproplqneyq-Trjwdiqxak-Fnczy-Kwg stions.htmlTo learn more about the COVID-19 vaccine, we invite you to visit the [facility] website for a list of frequently asked questions. https://[email or web address]/assets/Eovdrsqg-syv-Kxvxzhzp/nrvwc-Qzplwxf-Svkmwicrje _Asked-Questions.pdf [facility] Patient Portal Access Instructions: Stay connected with your healthcare team and access your personal medical information anytime with the [facility] Patient Portal. If you would like a full copy of your medical records please contact the [facility] Medical Records Department Friday through Friday between 8a.m. and 4:30p.m. Please follow the directions below to access the portal: 1.Access the email account you provided upon registration to the [facility].2.Look for an invitation email from [facility].3.Open the email and access the invitation link: Accept Invitation to [facility]4.Fill in the required vegas to create your account. Sign into www.BelAir Networks with your username and password that you [...] you will allow to register on the [facility] Patient Portal for access to your information. You can also access the [facility] Patient Portal on the [employer]. Simply click on Health Records under HealthData and then click on the Passbox logo. HOW TO SAFELY DISPOSE OF PRESCRIPTION [...] Call your local pharmacy or go to [email or web address] to find one close to you.3.Make use of household items: Use cat litter or old coffee grounds to dispose medications if other options arenot available. Mix your drugs with these household products, seal them in an airtight container andthrow it into the garbage. Call [facility]: [phone] to be sure your drugs can be [...] aware that I should contact my doctor. 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 * Head Injury: Closed: General Info (Iranian) documented in this [facility] Work Phone: 1(469) 255-387307-21-2022 History of Present illness Narrative* Ibrahima Schaefer [...] repair of his recurrent ventral hernia at [facility] performed by Dr. Aaron Duque. The operative [...] any other maneuvers. The patient presented to [facility] emergency department on [...] entered by the nurse and reviewed by ma Nursing Notes: Charlie Mera RN 01/03/2022 11:28 [...] applicable. Charlie Mera RN [facility]* Charlie Mera RN [...] None Charlie Mera RN [facility] Instructions* Patient Instructions* Charlie Mera RN - 01/03/2022 10:45 AM EDT The following instructions are important for you related to your office visit today with the [facility] General Surgeons. Instructions After HEMATOMA/SEROMA ASPIRATION [...] you should contact our office immediately @ [phone] and ask to be transferred to the General Surgery department. documented [facility] Hospital Discharge instructions Patient Education [...] blue color of the hand or foot [phone] [employer]. [address] [place] [address]. All rights reserved. This information is not intended as a substitute for professional medical care. Always follow yourhealthcare professional's instructions. Follow Up Care 12/21/2021 20:37:47 With:AARON DUQUE MD, Surgery Address: [address] [facility] [place] [address]- [phone] When:2-4 days [facility] 07-08-2022 Emergency department Discharge summary Discharge Instructions Thank you for allowing [facility] to assist you with your healthcare needs. [...] Where: [address] [facility] [address] [place] [address] [phone] Allergies Keflex Keppra (Rash) Tape, Paper (Rash) morphine (Rash) naproxen Medications Please ask your primary doctor or pharmacist before taking any other medication not listed, including over the counter drugs, herbal medications, vitamins and or supplements as they may interact [facility] medications. What How Much When Why Instructions Last Dose New acetaminophen-hydrocodone (Gilbert 325- 5 mg oral tablet) 1 tab(s) [...] blue color of the hand or foot [phone] [employer]. [address] [place] [address]. All rights reserved. This information is not intended as a substitute for professional medical care. Always follow yourhealthcare professional's instructions. Additional Information VACCINATE! IT SAVES LIVES! Members of the community who have not yet received the COVID-19 vaccine and would like to receive it can visit one of [facility] vaccine clinics. There are many vaccine clinic locations within the [facility]. For locations and available times, please visit [email or web address]. It is important to note that some COVID mobile vaccine clinics are held outdoors and may be canceled in rainy orstormy conditions. To learn more about pediatric vaccinations (ages 5-11), we invite you to visit the [facility] webpage. https://www.[facility].org/pages/7154-Qwvko-Ydnhvibakxw-Ahqckqfpwl-Aevdb-Zpb stions.htmlTo learn more about the COVID-19 vaccine, we invite you to visit the [facility] website for a list of frequently asked questions. https://[facility]/assets/Njmssfyx-inx-Xzjgcmvt/lapoo-Uzfsank-Mptscsixpn _Asked-Questions.pdf [facility] Patient Portal Access Instructions: Stay connected with your healthcare team and access your personal medical information anytime with the [facility] Patient Portal. If you would like a full copy of your medical records please contact the [facility] Medical Records Department Friday through Friday between 8a.m. and 4:30p.m. Please follow the directions below to access the portal: 1.Access the email account you provided upon registration to the [facility].2.Look for an invitation email from [facility].3.Open the email and access the invitation link: Accept Invitation to [facility]4.Fill in the required vegas to create your account. Sign into www.BelAir Networks with your username and password that you [...] you will allow to register on the [facility] Patient Portal for access to your information. You can also access the [facility] Patient Portal on the BadSeed randal. Simply click on Health Records under [employer] and then click on the Passbox logo. HOW TO SAFELY DISPOSE OF PRESCRIPTION [...] Call your local pharmacy or go to [email or web address] to find one close to you.3.Make use of household items: Use cat litter or old coffee grounds to dispose medications if other options arenot available. Mix your drugs with these household products, seal them in an airtight container andthrow it into the garbage. Call [facility]: [phone] to be sure your drugs can be [...] aware that I should contact my doctor. 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 [address] [place] [address], [place] [address]. All rights reserved. This information is not intended as a substitute for professional medical care. Always follow yourhealthcare professional's instructions. Follow Up Care 11/30/2021 18:59:24 With:AARON DUQUE Address: [address] [place] [address]- [phone] Business (1) When:2-4 days Comments:Schedule appointment for follow-up.Ice or cool compresses to the swollen, painful area.Use Tylenol,Advil or Aleve for pain as needed.Use Gilbert as prescribed for severe pain as needed.Return to the ED if symptoms worsen [facility] 06-10-2022 Evaluation + Plan note Future Scheduled Tests Laboratory* Basic Metabolic Panel 11/23/21 * Carbamazepine Level 11/23/21 * Complete Metabolic Panel 11/23/21 [facility] 06-10-2022 Evaluation + Plan note Future Appointments Future Scheduled Tests Laboratory* Basic Metabolic Panel 11/23/21 * Carbamazepine Level 11/23/21 * Complete Metabolic Panel 11/23/21 [facility] 06-10-2022 Evaluation + Plan note Future Scheduled Tests Laboratory* Basic Metabolic Panel 11/23/21 * Carbamazepine Level 11/23/21 * Complete Metabolic Panel 11/23/21 Radiology* IR Drainage Peritoneal Abscess Guide 08/20/22 [facility] 04-23-2022 Hospital Discharge instructions Patient Education 10/06/2021 [...] the waistline) or spreads to the back [phone] [employer]. [address] [place] [address], [place] [address]. All rights reserved. This information is not intended as a substitute for professional medical care. Always follow yourhealthcare professional's instructions. Follow Up Care 10/06/2021 14:45:39 With:AARON DUQUE MD, Surgery Address: [address] [place] [address]- [phone] When:2-4 days [facility] Discharge summary Author Guevara Choi [facility] Note Date/Time December 07, 2024 12:1 3am [facility] Medical Records Department [address] [place] [address] Emergency Department Summary 12/07/24 MR#: [id number] Acct: [id number] Name: PATRICK KOROMA Rep #:[id number] : 1980 44 From: Guevara Choi MD PCP: ERIC Anaya Status:REG ER Location: ED HPI History of Present Illness Chief Complaint: Upper Extremity Injury Informant: patient Narrative Narrative: During tear down of a car [facility], patient states he smashed his right thumb between 2 metal poles on accident. Ualsp-zwlm-spylvqpf. [facility] Medical History Seroma after procedure Influenza [...] abnormality of the right hand. Reading Location: [facility] Discharge Plan Triage Chief Complaint: Upper Extremity Injury ED Provider: Guevara Choi Dx/Rx/DC Orders Clinical Impression: Contusion of right thumb with damage to nail, initial encounter Instructions: ED Finger or Toe Contusion Prescriptions: No Action NK Primary Care Provider: Viola Starkey NP Referrals: Viola Starkey NP, YULI-C [Primary Care Provider] - 10-14 Days if not better Print Language: Iranian Disposition Disposition: Home, Self Care What to do if you have Problems For any increased pain, shortness of breath, bleeding, nausea or vomiting, chestpain, or any unexpected problems, contact your Primary Care Provider. Call [facility] ([phone]) or report to the closest Emergency Room. Call 911 if necessary. 12/07/24 0013 <Electronically signed by Guevara Choi MD> Cosigner Signature (if applicable): CC: YULI-Marielos Starkey ~ Signed [facility] Work Phone: Discharge summary Author Guero Baker [facility] Note Date/Time March 08, 2025 12:58am [facility] Medical Records Department [address] [place] [address] Emergency Department Summary 03/08/25 MR#: [id number] Acct: [id number] Name: PATRICK KOROMA Rep #:[id number] : 1980 45 From: Guero Baker DO [...] for multiple years he presents for evaluation [facility] Medical History (Updated 03/08/25 @ 01:[address] Guero Baker, DO) Abdominal pain Seroma after procedure [...] % (Auto) 53.7 Lymph % (Auto) 34.8 Benson % (Auto) 6.0 Eos % (Auto) 3.6 [...] 23:13 IMPRESSION: Unremarkable head CT. Reading Location: [id number] Chest X-Ray 03/07/25 23:40 IMPRESSION: No acute cardiopulmonary disease. Reading Location: [id number] Chest x-ray as interpreted by the emergency [...] MD [Non-Staff -Ordering Privileges, Neurology] Viola Starkey BIODIESEL TECHNOLOGY MANAGER, BIODIESEL TECHNOLOGY MANAGER-C [Primary Care Provider, Family Practice] Activity Restrictions/Additional Instructions: Your workup revealed no obvious cause for a breakthrough seizure such as infection brain mass/bleed or electrolyte abnormality. Please follow-up with your family doctor as well as urology to discuss restarting medication and return to the ER should you have any further concerns. Print Language: Iranian Disposition Disposition: Home, Self Care Discharge Date/Time: 03/08/25 00:58 What to do if you have Problems For any increased pain, shortness of breath, bleeding, nausea or vomiting, chestpain, or any unexpected problems, contact your Primary Care Provider. Call [facility] ([phone]) or report to the closest Emergency Room. Call 911 if necessary. 03/08/25 0130 <Electronically signed by Guero Baker DO> Cosigner Signature (if applicable): CC: BIODIESEL TECHNOLOGY MANAGER-C Viola Starkey ~ Signed [facility] Work Phone: Evaluation + Plan note No data available for this section [facility] Evaluation + Plan note Future Appointments Appointment Date:11/01/2021 02:10:00 PM Scheduled Provider:AARON DUQUE MD Location:Gen Surg [facility] Appointment Type:GS OV Check after Test [facility] Evaluation + Plan note Future Appointments [facility] Evaluation + Plan note Future Appointments Appointment Date:12/06/2021 01:40:00 PM Scheduled Provider:AARON DUQUE MD Location:Gen Surg [facility] Appointment Type:GS OV Post Op Appointment Date:02/22/2022 10:30:00 AM Scheduled Provider:APPLE CONNORS Location:[facility] Appointment Type:PC Wellness Annual Future Scheduled Tests Laboratory* Basic Metabolic Panel 11/23/21 * Carbamazepine Level 11/23/21 * Complete Metabolic Panel 11/23/21 [facility] Evaluation + Plan note Future Appointments Appointment Date:12/27/2021 01:20:00 PM Scheduled Provider:AARON DUQUE MD Location:Gen Surg [facility] Appointment Type:GS OV Follow Up Appointment Date:02/22/2022 10:30:00 AM Scheduled Provider:APPLE CONNORS Location:[facility] Appointment Type:PC Wellness Annual Future Scheduled Tests Laboratory* Basic Metabolic Panel 11/23/21 * Carbamazepine Level 11/23/21 * Complete Metabolic Panel 11/23/21 [facility] Evaluation + Plan note Future Appointments Appointment Date:07/01/2022 03:20:00 PM Scheduled Provider:AARON DUQUE MD Location:Gen Surg [facility] Appointment Type:GS OV Future Scheduled Tests Laboratory* Basic Metabolic Panel 11/23/21 * Carbamazepine Level 11/23/21 * Complete Metabolic Panel 11/23/21 [facility] Evaluation + Plan note Future Appointments Appointment Date:07/25/2022 10:00:00 AM Scheduled Provider:AVANI CANTOR Location:[facility] Appointment Type:GS OV Post Op Future Scheduled Tests Laboratory* Basic Metabolic Panel 11/23/21 * Carbamazepine Level 11/23/21 * Complete Metabolic Panel 11/23/21 [facility] Evaluation noteNo assessment information available [facility] Work Phone: Evaluation note* Diagnosis Hematoma- Primary Contusion of unspecified site Incisional hernia, without obstruction or gangrene Incisional hernia without mention of obstruction or gangrene [facility] Diagnosis Closed head injury, initial encounter- Primary documented in this encounter [facility] Work Phone: Evaluation note* Diagnosis Injury of right wrist, initial encounter- Primary documented in this encounter [facility] Work Phone: evaluation note* Diagnosis Acute pain of right shoulder- Primary Strain of right shoulder, initial encounter documented [facility] Work Phone: evaluation note* Diagnosis Onset Date Resolution Status Infected hernioplasty mesh a [facility] Work Phone: Evaluation note* Diagnosis Left lower quadrant abdominal pain- Primary [facility]* Diagnosis Preoperative examination- Primary Preoperative examination, unspecified Infected hernioplasty mesh, sequela documented in this encounter [facility] note* Diagnosis Abdominal pain, unspecified abdominal location- Primary Preoperative examination Preoperative examination, unspecified Infected hernioplasty mesh, sequela documented in this encounter [facility] note* Diagnosis Pre-op evaluation- Primary Preoperative examination, unspecified Post traumatic seizure disorder (HCC) Post traumatic seizures Morbid obesity (HCC) Morbid obesity Tobacco use Tobacco use disorder Preoperative examination Preoperative examination, unspecified Infected hernioplasty mesh, sequela documented in this encounter [facility] note* Diagnosis Left lower quadrant abdominal pain- Primary documented in this encounter [facility] note* Diagnosis Left lateral abdominal pain- Primary Abdominal pain, unspecified site documented in this encounter [facility] note* Diagnosis Seizure (CMS/HCC) (HCC)- Primary Other convulsions documented in this encounter [facility] note* Diagnosis Periumbilical abdominal pain- Primary Abdominal pain, periumbilic History of abdominal hernia documented in this encounter [facility] Work Phone: Evaluation note* Diagnosis History of abdominal hernia documented in this encounter [facility] Work Phone: Hospital Discharge instructions No data available for this section [facility] Discharge instructions* Attachments The following attachments cannot be sent through Care Everywhere. * RICE: General Info (Iranian) [facility] Work Phone: Hospital Discharge instructions* Attachments The following attachments cannot be sent through Care Everywhere. * Shoulder Sprain (Iranian) [facility] Work Phone: Hospital Discharge instructions Additional Instructions Please keep your appointment next week with [facility] Work Phone: Hospital Discharge instructions Additional Instructions Your x-ray right shoulder negative. Your clinical exam concerns for biceps tendinitis of the shoulder region. Continue ibuprofen. Finish prednisone as prescribed.[facility] Work Phone: Hospital Discharge instructions Additional Instructions You may wear the sling for comfort but exercise your right shoulder at least 3 times a day to prevent frozen shoulder. Tdpg-bay-jpktrpy medications as needed for pain. Follow-up with orthopedics if not improving.[facility] Work Phone: Hospital Discharge instructionsAdditional Instructions Call the [facility]. 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 Call their office to get an appointment. Motrin and Tylenol for pain.[facility] Work Phone: Hospital Discharge instructionsAdditional Instructions Please follow-up with your family doctor and/or surgeon for repeat evaluation and return to the ER should you have any further concernsWTri[facility] Work Phone: Hospital Discharge instructionsAdditional Instructions [...] Pain management for further outpatient evaluation and management.[facility] Work Phone: Hospital Discharge instructionsAdditional Instructions Your workup revealed no obvious cause for a breakthrough seizure such as infection brain mass/bleed or electrolyte abnormality. Please follow-up with your family doctor as well as urology to discuss restarting medication and return to the ER should you have any further concerns. [facility] Work Phone: Hospital Discharge instructionsAdditional Instructions Please follow-up with your surgeon as previously directed and return to the ER if you have any further concerns or worsening of symptomsWTriHealth [facility] Work Phone: Progress note No data available for this section [facility] Reason for referral (narrative)No reason for referral information availableMiddletown Hospital Work Phone: Reason for visit Narrative* Consultation (Routine) - Authorized Specialty Diagnoses / Procedures Referred By Contac t Referred To Contact General Surgery Diagnoses History of abdominal hernia Jonathan Gonzalez MD [address] [facility] [address] [place] [address] Phone: tel: fax: Stephon Benavides MD [address] [facility] [address] [place] [address] Phone: tel: fax: Referral ID Status Reason Start Date Expiration Date Visits Requested Visits Authorized [id number] Authorized Specialty Services Required 07/29/2024 07/29/2025 1 1 [facility] Work Phone: summary note* Daksha Love: PERFORM Event Display: Patient Summary Documents Authored Date: [facility] Suxccls note* VERONIKA Connors: PERFORM Event Display: Patient Summary Documents Authored Date: [id number] [facility] Suypuyo note* VERONIKA Connors: PERFORM Event Display: Patient Summary Documents Authored Date: [id number] [facility] Suivdsl note* VERONIKA Carmona: PERFORM Event Display: Patient Summary Documents Authored Date: [id number] [facility] Summaij of episode note* Barbara Michele RN: PERFORM Event Display: Outpatient Patient Summary Authored Date: [id number] Discharge Instructions Thank you for allowing [facility] to assist you with your healthcare needs. The following is importantdischarge information regarding your hospital visit. Your Care Team AARON DUQUE MD Your Diagnosis Acute post-operative pain What to do next Follow Up Appointments Follow Up with AARON DUQUE MD, Surgery When In 2 weeks Why: Call office to schedule follow up appointment. Where: [address] [facility] [address] [place] [address]- [phone] The Following Activity and Diet Have Been Ordered for You Discharge Activity - Ordered -- Sexual [place] Restricted No bending, twisting, crawling or squatt, [...] When Why Instructions Last Dose New acetaminophen-hydrocodone (Gilbert 325- 5 mg oral tablet) 1 tab(s) by mouth Every 4 hours as needed for Pain, scale 4-6 Acute post-operative pain Duration: 7 Days Pickup at [facility]/pharmacy #[id number] Unchanged carBAMazepine (TEGretol 200 mg oral tablet) 3 tab(s) by mouth Two (2) times a day Seizure Post-operative state s/p umbilical hernia repair, possible seizure following surgery Pharmacy Information [facility]/pharmacy #[id number]: [address], [place] [id number] [phone] Please take this list to your next [...] as possible. If the spirometer includes a job coach/job developer indicator, use this to guide you in [...] 10/13/2007 Document Revised: 06/25/2018 Document Reviewed: 04/15/2018 [employer] Patient Education 2020 [employer] Surgical Drain Home Care Surgical drains [...] placed at your back, or any other uafq-yt-ycapu area, ask another person to assist you [...] and water are not available, use hand operating systems specialist. 3. Remove the old dressing. Avoid using [...] and water are not available, use hand operating systems specialist. 3. Loosen any pins or clips that [...] placed at your back, or any other nkfk-dl-ozmlw area, ask another person to assist you. Contact your health care provider if you have redness, swelling, or pain around your drain area. This information is not intended to replace advice given to you by your health care provider. Make sure you discuss any questions you have with your health care provider. Document Released: 05/30/2001 Document Revised: 07/07/2019 Document Reviewed: 07/07/2019 [employer]Fund Recs Patient Education 2019 [employer]. Ryan Pantoja Drain Patient Education After surgery, [...] Document Reviewed: 06/03/2014 ExitCare Patient Information 2015 [employer]. This information is not intended to replace [...] garbage bag. Soap and water, or hand operating systems specialist. Wound cleanser or salt-water solution (saline). New [...] and water are not available, use hand operating systems specialist. 3. Set up a clean station for [...] and water are not available, use hand operating systems specialist. Clean your wound Wear gloves, protective clothing, [...] and water are not available, use hand operating systems specialist. Apply new dressing Wear gloves, protective clothing, [...] and water are not available, use hand operating systems specialist. 8. Turn the pump back on. The sponge dressing should collapse. Do not change the settings on the machine without talking to a health care provider. 9. Replace the container in the pump that collects fluid if it is full. Replace the container per the bail bonding agent's instructions or at least once a week, [...] all clamps are open. Do not use zvzr-inm-whysunh medicated or antiseptic creams, sprays, liquids, or [...] 08/24/2012 Document Revised: 09/24/2019 Document Reviewed: 08/20/2019 [employer] Patient Education 2020 [employer] Inc. Nausea and Vomiting, Adult Nausea is [...] water added (diluted fruit juice). Eat bland, maxc-wk-sleiiv foods in small amounts as you are able. These foods include bananas, applesauce, rice, lean meats, toast, and crackers. Avoid fluids that contain a lot of sugar or caffeine, such as energy drinks, sports drinks, and soda. Avoid alcohol. Avoid spicy or fatty foods. General instructions Take msyf-caw-pxxzxmr and prescription medicines only as told by your health care provider. Drink enough fluid to keep your urine pale yellow. Wash your hands often using soap and water. If soap and water are not available, use hand operating systems specialist. Make sure that all people in your [...] eating and drinking to prevent dehydration. Take tubx-dtl-hjfhwcj and prescription medicines only as told by [...] 06/02/2006 Document Revised: 09/24/2019 Document Reviewed: 11/10/2018 [employer] Patient Education 2020 [employer]. Monitored Anesthesia Care, Care After These instructions [...] before eating solid foods. General instructions Take iigh-ypt-mkfxzqh and prescription medicines only as told by [...] 09/22/2016 Document Revised: 08/31/2018 Document Reviewed: 09/22/2016 [employer] Patient Education 2020 [employer]. Open Hernia Repair, Adult, Care After This [...] and water are not available, use hand operating systems specialist. ? Change your dressing as told by [...] urine clear or pale yellow. ? Take lelz-ejw-kkdsadd or prescription medicines. ? Eat foods that are high in fiber, such as fresh fruits and vegetables, whole grains, and beans. ? Limit foods that are high in fat and processed sugars, such as fried and sweet foods. Take kffz-bra-nxnqtvf and prescription medicines only as told by [...] 12/20/2005 Document Revised: 05/15/2018 Document Reviewed: 11/13/2016 [employer]Fund Recs Patient Education 2020 [employer] Inc. Additional Information VACCINATE! IT SAVES LIVES! Members of the community who have not yet received the COVID-19 vaccine and would like to receive it can visit one of [facility] vaccine clinics. There are many vaccine clinic locations within the [facility]. For locations and available times, please visit [email or web address] It is important to note that some COVID mobile vaccine clinics are held outdoors and may be canceled in rainy or stormy conditions. To learn more about pediatric vaccinations (ages 5-11), we invite you to visit the [facility] webpage. [email or web address] [email or web address] learn more about the COVID-19 vaccine, we invite you to visit the [employer] website for a list of frequently asked questions. [email or web address]/[email or web address] _[email or web address].pdf [facility] Patient Portal Access Instructions: Stay connected with your healthcare team and access your personal medical information anytime with the [facility] Patient Portal.If you would like a full copy of your medical records, please contact the [facility] Medical Records Department, Friday through Friday between 8a.m. and 4:30p.m. Please follow the directions below to access the portal: 1.Access the email account you provided upon registration to the hospital.2.Look for an invitation email from [facility].3.Open the email and access the invitation link: Accept Invitation to [facility]4.Fill in the required [place] to create your account. Sign into www.[employer] with your username and password that you [...] you will allow to register on the [facility] Patient Portal for access to your information. You can also access the [employer] Patient Portal on the [employer]ed randal. Simply click on Health Records under [employer] and then click on the [employer] logo. HOW TO SAFELY DISPOSE OF PRESCRIPTION [...] Call your local pharmacy or go to [email or web address] to find one close to you.3.Make use of household items: Use cat litter or old coffee grounds to dispose medications if other options arenot available. Mix your drugs with these household products, seal them in an airtight container andthrow it into the garbage. Call [facility]: [phone] to be sure your drugs can be [...] aware that I should contact my doctor. 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: Relationship to Patient: Witness Name/Signature: Date/Time: [facility] Summary Purpose Family History No Family History [...] No January 01, 2022 6:14pm Power of Physical Therapy Assistant No January 01 6:14pm Advance Directive Response Recorded Date/ Time Advance Directives No July 05, 2017 11:20pm Living Will No July 04 24 12:18am Power of Physical Therapy Assistant No July 04, 2023 12:18am Advance Directive Response Recorded Date/ Time Advance Directives No July 05, 2017 11:20pm Living Will No June 01, 023 1:14am Power of Physical Therapy Assistant No June 01, 2023 1:14am Advance Directive Response Recorded Date/ Time Living Will No August 24, 2024 10:40pm Power of Physical Therapy Assistant No August 24 10:40pm Advance Directives No July 06, 2017 12:20am Advance Directive Response Recorded Date/ Time Living Will No August 24, 2024 10:40pm Do you have a Healthcare Power of Physical Therapy Assistant? No August 24, 2024 10:40pm Living Will No September 19, 2024 9:34pm Do you have a Healthcare Power of Physical Therapy Assistant? No September 19, 2024 9:34pm Advance Directives No July 06, 2017 12:20am Advance Directive Response Recorded Date/ Time Living Will No August 24, 2024 10:40pm Do you have a Healthcare Power of Physical Therapy Assistant? No August 24, 2024 10:40pm Living Will No September 19, 2024 9:34pm Do you have a Healthcare Power of Physical Therapy Assistant? No September 19, 2024 9:34pm Do you have a Healthcare Power of Physical Therapy Assistant? No December 06, 2024 11:19pm Advance Directives No July 06, 2017 12:20am Advance Directive Response Recorded Date/ Time Living Will No August 24, 2024 10:40pm Do you have a Healthcare Power of Physical Therapy Assistant? No August 24, 2024 10:40pm Living Will No September 19, 2024 9:34pm Do you have a Healthcare Power of Physical Therapy Assistant? No September 19, 2024 9:34pm Do you have a Healthcare Power of Physical Therapy Assistant? No December 06, 2024 11:19pm Do you have a Healthcare Power of Physical Therapy Assistant? No December 08, 2024 11:45pm Advance Directives No July 06, 2017 12:20am Advance Directive Response Recorded Date/ Time Living Will No September 19, 2024 9:34pm Do you have a Healthcare Power of Physical Therapy Assistant? No September 19, 2024 9:34pm Do you have a Healthcare Power of Physical Therapy Assistant? No December 06, 2024 11:19pm Do you have a Healthcare Power of Physical Therapy Assistant? No December 08, 2024 11:45pm Do you have a Healthcare Power of Physical Therapy Assistant? No December 29, 2024 9:30pm Advance Directives No July 06, 2017 12:20am Advance Directive Response Recorded Date/ Time Do you have a Healthcare Power of Physical Therapy Assistant? No December 06, 2024 11:19pm Do you have a Healthcare Power of Physical Therapy Assistant? No December 08, 2024 11:45pm Do you have a Healthcare Power of Physical Therapy Assistant? No December 29, 2024 9:30pm Do you have a Healthcare Power of Physical Therapy Assistant? No January 25, 2025 10:34pm Advance Directives No July 06, 2017 12:20am Advance Directive Response Recorded Date/ Time Do you have a Healthcare Power of Physical Therapy Assistant? No December 06, 2024 11:19pm Do you have a Healthcare Power of Physical Therapy Assistant? No December 08, 2024 11:45pm Do you have a Healthcare Power of Physical Therapy Assistant? No December 29, 2024 9:30pm Do you have a Healthcare Power of Physical Therapy Assistant? No January 25, 2025 10:34pm Do you have a Healthcare Power of Physical Therapy Assistant? No February 17, 2025 10:06pm Advance Directives No July 06, 2017 12:20am Advance Directive Response Recorded Date/ Time Do you have a Healthcare Power of Physical Therapy Assistant? No December 06, 2024 11:19pm Do you have a Healthcare Power of Physical Therapy Assistant? No December 08, 2024 11:45pm Do you have a Healthcare Power of Physical Therapy Assistant? No December 29, 2024 9:30pm Do you have a Healthcare Power of Physical Therapy Assistant? No January 25, 2025 10:34pm Do you have a Healthcare Power of Physical Therapy Assistant? No February 17, 2025 10:06pm Do you have a Healthcare Power of Physical Therapy Assistant? No February 27, 2025 9:28pm Advance Directives No July 06, 2017 12:20am Advance Directive Response Recorded Date/ Time Do you have a Healthcare Power of Physical Therapy Assistant? No December 06, 2024 11:19pm Do you have a Healthcare Power of Physical Therapy Assistant? No December 08, 2024 11:45pm Do you have a Healthcare Power of Physical Therapy Assistant? No December 29, 2024 9:30pm Do you have a Healthcare Power of Physical Therapy Assistant? No January 25, 2025 10:34pm Do you have a Healthcare Power of Physical Therapy Assistant? No February 17, 2025 10:06pm Do you have a Healthcare Power of Physical Therapy Assistant? No February 27, 2025 9:28pm Do you have a Healthcare Power of Physical Therapy Assistant? No March 07, 2025 10:38pm Advance Directives No July 06, 2017 12:20am Advance Directive Response Recorded Date/ Time Do you have a Healthcare Power of Physical Therapy Assistant? No December 29, 2024 9:30pm Do you have a Healthcare Power of Physical Therapy Assistant? No January 25, 2025 10:34pm Do you have a Healthcare Power of Physical Therapy Assistant? No February 17, 2025 10:06pm Do you have a Healthcare Power of Physical Therapy Assistant? No February 27, 2025 9:28pm Do you have a Healthcare Power of Physical Therapy Assistant? No March 07, 2025 10:38pm Do you have a Healthcare Power of Physical Therapy Assistant? No March 24, 2025 9:44pm Advance Directives [...] Procedures CONSULT TO NEUROSURGERY Trinidad Richardson MD [address] [id number] Juliocesar Borrero MD, PhD [address] [place], [place] [id number] Referral ID Status Reason Start Date Expiration Date Visits Requested Visits Authorized [id number] Ref Not Required PCP Requested Referral 10/07/2023 10/06/2024 1 1 Specialty Diagnoses / Procedures Referred By Contac t Referred To Contact Diagnoses Preoperative examination Infected hernioplasty mesh, sequela Procedures REFER TO PACC - PRE ANESTHESIA CONSULTATION CLINIC OFFICE/OUTPATIENT [facility] 60 MINUTES Suresh Griffiths, BUYER ASSISTANT.TANKER DRIVER [address] [place], [place] [id number] Referral ID Status Reason Start Date Expiration Date Visits Requested Visits Authorized [id number] Authorized PCP Requested Referral 07/21/2023 07/20/2024 1 1 Specialty Diagnoses / Procedures Referred By Contac t Referred To Contact [facility] Diagnoses Preoperative examination Infected hernioplasty mesh, sequela Procedures ECG COMPLETE ECG ROUTINE ECG W/LEAST 12 LDS W/I&R Suresh Griffiths, BUYER ASSISTANT.TANKER DRIVER [address] [place] [id number] [facility] [address] [place], [place] [id number] Referral ID Status Reason Start Date Expiration Date Visits Requested Visits Authorized [id number] Pending Review Auto-Generat ed Referral 07/21/2023 07/20/2024 1 1 Specialty Diagnoses / Procedures Referred By Contac t Referred To Contact Diagnoses Preoperative examination Infected hernioplasty mesh, sequela Procedures CONS[facility] OFF[facility]/OUTPATIENT [facility] 60 MINUTES Suresh Griffiths, BUYER ASSISTANT.TANKER DRIVER [address] [address] Referral ID Status Reason Start Date Expiration Date Visits Requested Visits Authorized [id number] Authorized PCP Requested Referral 07/21/2023 07/20/2024 1 1 Specialty Diagnoses / Procedures Referred By Louieac t Referred To Contact [facility] Diagnoses Left lower quadrant abdominal pain Procedures CONSULT TO [facility] FOR PAIN RECOVERY (CHRONIC PAIN) OFFICE/OUTPATIENT [facility] 60 MINUTES Suresh Griffiths, BUYER ASSISTANT.TANKER DRIVER [address] [address] Referral ID Status Reason Start Date Expiration Date Visits Requested Visits Authorized [id number] Pending Review PCP Requested Referral 07/18/2023 07/17/2024 [...] section and content) DATE CREATED AUTHOR 12/10/2017 [facility] DATE CREATED AUTHOR AUTHOR'S ORGANIZ ATION 12/10/2021 [facility] DATE CREATED AUTHOR AUTHOR'S ORGANIZ ATION 03/18/2022 [facility] DATE CREATED AUTHOR AUTHOR'S ORGANIZ ATION 04/30/2022 [facility] DATE CREATED AUTHOR AUTHOR'S ORGANIZ ATION 06/12/2022 [facility] DATE CREATED AUTHOR AUTHOR'S ORGANIZ ATION 06/15/2022 [facility] DATE CREATED AUTHOR AUTHOR'S ORGANIZ ATION 02/23/2023 [facility] DATE CREATED AUTHOR AUTHOR'S ORGANIZ ATION 10/16/2023 [facility] ([place]) DATE CREATED AUTHOR AUTHOR'S ORGANIZ ATION 11/07/2023 [facility] DATE CREATED AUTHOR AUTHOR'S ORGANIZ ATION 03/03/2025 [facility] DATE CREATED AUTHOR AUTHOR'S ORGANIZ ATION 03/09/2025 [facility] DATE CREATED AUTHOR AUTHOR'S ORGANIZ ATION 04/28/2025 [facility] Care Team (unrecognized sect ion and content) Medical Technician Relationship Specialty Start Date End Date Leydi Martin MD [address] [place], [place] [phone] PCP - General Internal Medicine 07/08/17 Medical Technician Relationship Specialty Start Date End Date No, [...] Dr. Chloe Shea DO Emergency Provider Active Medical Technician Relationship Specialty Start Date End Date Leydi Martin MD [address] [place], [place] [phone] PCP - General Internal Medicine 07/08/17 Jeffery Weber MD [address] [id number] General Surgery 06/13/23 Medical Technician Relationship Specialty Start Date End Date Leydi Martin MD [address] [place], [place] [phone] PCP - General Internal Medicine 07/08/17 Jeffery Weber MD [address] [place] [address] General Surgery 06/13/23 Medical Technician Relationship Specialty Start Date End Date Leydi Martin MD [address] [facility] [place] [address] PCP - General Internal Medicine 07/08/17 Jeffery Weber MD [address] [place] [address] General Surgery 06/13/23 Medical Technician Relationship Specialty Start Date End Date Leydi Martin MD [address] [facility] [place] [address] PCP - General Internal Medicine 07/08/17 Jeffery Weber MD [address] [place] [address], [place] [address] General Surgery 06/13/23 Medical Technician Relationship Specialty Start Date End Date Leydi Martin MD [address] [facility] [place] [address] PCP - General Internal Medicine 07/08/17 Jeffery Weber MD [address] [place] [address] General Surgery 06/13/23 Medical Technician Relationship Specialty Start Date End Date Leydi Martin MD [address] [place] [address] PCP - General Internal Medicine 07/08/17 Jeffery Weber MD [address] [place], [place] [address] General Surgery 06/13/23 Medical Technician Relationship Specialty Start Date End Date Leydi Martin MD [address] [place], [place] [address] PCP - General Internal Medicine 07/08/17 Jeffery Weber MD [address] [place], [place] [address] General Surgery 06/13/23 Medical Technician Relationship Specialty Start Date End Date Jonathan Gonzalez MD [address] [place] [address] Surgeon General Surgery 06/21/24 Medical Technician Relationship Specialty Start Date End Date Jonathan Gonzalez MD [address] [place], [place] [address] Surgeon General Surgery 06/21/24 Medical Technician Relationship Specialty Start Date End Date Jonathan Gonzalez MD [address] [place], [place] [address] Surgeon General Surgery 06/21/24 Team Status: Active [...] Active Member Role Status Dates Viola Starkey BIODIESEL TECHNOLOGY MANAGER, BIODIESEL TECHNOLOGY MANAGER-C Primary Care Provider Active Team Status: Inactive Member Role Status Dates Dr. Cristian Guadalupe DO Attending Provider Active Start : August 24, 2024 End: August 24, 2024 Dr. Cristian Guadalupe , Emergency Provider Active Start : August 24, 2024 End: August 24, 2024 Viola Starkey BIODIESEL TECHNOLOGY MANAGER, BIODIESEL TECHNOLOGY MANAGER-C Primary Care Provider Active Start: August 24, 2024 End: August 24, 2024 Team Status: Inactive Member Role Status Dates Viola Starkey BIODIESEL TECHNOLOGY MANAGER, BIODIESEL TECHNOLOGY MANAGER-C Primary Care Provider Active Start: September 19, 2024 End: September 19, 2024 Brian Maldonado MD Referring Provider Active Star t: September 19, 2024 End: September 19, 2024 Brian Maldonado MD Emergency Provider Active Star t: September 19, 2024 End: September 19, 2024 Team Status: Inactive Member Role Status Dates Viola Starkey BIODIESEL TECHNOLOGY MANAGER, BIODIESEL TECHNOLOGY MANAGER-C Primary Care Provider Active Start: September 19, [...] Inactive Member Role Status Dates Viola Starkey BIODIESEL TECHNOLOGY MANAGER, BIODIESEL TECHNOLOGY MANAGER-C Primary Care Provider Active Start: December 06, 2024 End: December 07, 2024 Dr. Guevara Choi MD Emergency Provider Active Start: December 06, 2024 End: December 07, 2024 Team Status: Inactive Member Role Status Dates Viola Starkey BIODIESEL TECHNOLOGY MANAGER, BIODIESEL TECHNOLOGY MANAGER-C Primary Care Provider Active Start: December 08, 2024 End: December 09, 2024 Dr. Guero Baker , Emergency Provider Active Start: December 08, 2024 End: December 09, 2024 Team Status: Active Member Role/Relationship Status Dates Viola Starkey BIODIESEL TECHNOLOGY MANAGER, BIODIESEL TECHNOLOGY MANAGER-C Primary Care Provider Active Team Status: Inactive Member Role/Relationship Status Dates Viola Starkey BIODIESEL TECHNOLOGY MANAGER, BIODIESEL TECHNOLOGY MANAGER-C Primary Care Provider Active Start: September 19, [...] Inactive Member Role/Relationship Status Dates Viola Starkey BIODIESEL TECHNOLOGY MANAGER, BIODIESEL TECHNOLOGY MANAGER-C Primary Care Provider Active Start: December 06, 2024 End: December 07, 2024 Dr. Guevara Choi MD Attending Provider Active Start: December 06, 2024 End: December 07, 2024 Dr. Guevara Choi MD Emergency Provider Active Start: December 06, 2024 End: December 07, 2024 Team Status: Inactive Member Role/Relationship Status Dates Viola Starkey BIODIESEL TECHNOLOGY MANAGER, BIODIESEL TECHNOLOGY MANAGER-C Primary Care Provider Active Start: December 08, 2024 End: December 09, 2024 Dr. Guero Baker DO Attending Provider Active Start: December 08, 2024 End: December 09, 2024 Dr. Guero Baker DO Emergency Provider Active Start: December 08, 2024 End: December 09, 2024 Team Status: Inactive Member Role/Relationship Status Dates Viola Starkey BIODIESEL TECHNOLOGY MANAGER, BIODIESEL TECHNOLOGY MANAGER-C Primary Care Provider Active Start: December 29, 2024 End: December 29, 2024 Dr. Justin Cordero MD Emergency Provider Active S tart: December 29, 2024 End: December 29, 2024 Team Status: Inactive Member Role/Relationship Status Dates Viola Starkey BIODIESEL TECHNOLOGY MANAGER, BIODIESEL TECHNOLOGY MANAGER-C Primary Care Provider Active Start: December 06, 2024 End: December 07, 2024 Dr. Guevara Choi MD Attending Provider Active Start: December 06, 2024 End: December 07, 2024 Dr. Guevara Choi MD Emergency Provider Active Start: December 06, 2024 End: December 07, 2024 Team Status: Inactive Member Role/Relationship Status Dates Viola Starkey BIODIESEL TECHNOLOGY MANAGER, BIODIESEL TECHNOLOGY MANAGER-C Primary Care Provider Active Start: December 08, 2024 End: December 09, 2024 Dr. Guero Baker DO Attending Provider Active Start: December 08, 2024 End: December 09, 2024 Dr. Guero Baker DO Emergency Provider Active Start: December 08, 2024 End: December 09, 2024 Team Status: Inactive Member Role/Relationship Status Dates Viola Starkey BIODIESEL TECHNOLOGY MANAGER, BIODIESEL TECHNOLOGY MANAGER-C Primary Care Provider Active Start: December 29, 2024 End: December 29, 2024 Dr. Justin Cordero MD Attending Provider Active S tart: December 29, 2024 End: December 29, 2024 Dr. Justin Cordero MD Emergency Provider Active S tart: December 29, 2024 End: December 29, 2024 Team Status: Inactive Member Role/Relationship Status Dates Viola Starkey BIODIESEL TECHNOLOGY MANAGER, BIODIESEL TECHNOLOGY MANAGER-C Primary Care Provider Active Start: January 25, 2025 End: January 26, 2025 Dr. Guero Baker DO Emergency Provider Active Start: January 25, 2025 End: January 26, 2025 Team Status: Inactive Member Role/Relationship Status Dates Viola Starkey BIODIESEL TECHNOLOGY MANAGER, BIODIESEL TECHNOLOGY MANAGER-C Primary Care Provider Active Start: January 25, 2025 End: January 26, 2025 Dr. Guero Baker DO Attending Provider Active Start: January 25, 2025 End: January 26, 2025 Dr. Guero Baker , Emergency Provider Active Start: January 25, 2025 End: January 26, 2025 Team Status: Inactive Member Role/Relationship Status Dates Viola Starkey BIODIESEL TECHNOLOGY MANAGER, BIODIESEL TECHNOLOGY MANAGER-C Primary Care Provider Active Start: February 17, 2025 End: February 18, 2025 Dr. Guero Baker DO Emergency Provider Active Start: February 17, 2025 End: February 18, 2025 Team Status: Inactive Member Role/Relationship Status Dates Viola Starkey BIODIESEL TECHNOLOGY MANAGER, BIODIESEL TECHNOLOGY MANAGER-C Primary Care Provider Active Start: February 17, 2025 End: February 18, 2025 Dr. Guero Baker DO Attending Provider Active Start: February 17, 2025 End: February 18, 2025 Dr. Guero Baker DO Emergency Provider Active Start: February 17, 2025 End: February 18, 2025 Team Status: Inactive Member Role/Relationship Status Dates Viola Starkey BIODIESEL TECHNOLOGY MANAGER, BIODIESEL TECHNOLOGY MANAGER-C Primary Care Provider Active Start: February 27, 2025 End: February 27, 2025 Dr. Joseluis Maier DO Emergency Provider Active Start: February 27, 2025 End: February 27, 2025 Team Status: Active Member Role/Relationship Status Dates Viola Starkey BIODIESEL TECHNOLOGY MANAGER, BIODIESEL TECHNOLOGY MANAGER-C Primary care physician Active Team Status: Inactive Member Role/Relationship Status Dates Viola Starkey BIODIESEL TECHNOLOGY MANAGER, BIODIESEL TECHNOLOGY MANAGER-C Primary care physician Active Start: December 06, 2024 End: December 07, 2024 Dr. Guevara Choi MD Attending physician Active Start: December 06, 2024 End: December 07, 2024 Dr. Guevara Choi MD Emergency Department Physician Active Start: December 06, 2024 End: December 07, 2024 Team Status: Inactive Member Role/Relationship Status Dates Viola Starkey BIODIESEL TECHNOLOGY MANAGER, BIODIESEL TECHNOLOGY MANAGER-C Primary care physician Active Start: December 08, 2024 End: December 09, 2024 Dr. Guero Baker DO Attending physician Active Start: December 08, 2024 End: December 09, 2024 Dr. Guero Baker , Emergency Department Physician A ctive Start: December 08, 2024 End: December 09, 2024 Team Status: Inactive Member Role/Relationship Status Dates Viola Starkey BIODIESEL TECHNOLOGY MANAGER, BIODIESEL TECHNOLOGY MANAGER-C Primary care physician Active Start: December 29, 2024 End: December 29, 2024 Dr. Justin Cordero MD Attending physician Active Start: December 29, 2024 End: December 29, 2024 Dr. Justin Cordero MD Emergency Department Physician Ac tive Start: December 29, 2024 End: December 29, 2024 Team Status: Inactive Member Role/Relationship Status Dates Viola Starkey BIODIESEL TECHNOLOGY MANAGER, BIODIESEL TECHNOLOGY MANAGER-C Primary care physician Active Start: January 25, 2025 End: January 26, 2025 Dr. Guero Baker DO Attending physician Active Start: January 25, 2025 End: January 26, 2025 Dr. Guero Baker , Emergency Department Physician A ctive Start: January 25, 2025 End: January 26, 2025 Team Status: Inactive Member Role/Relationship Status Dates Viola Starkey BIODIESEL TECHNOLOGY MANAGER, BIODIESEL TECHNOLOGY MANAGER-C Primary care physician Active Start: February 17, 2025 End: February 18, 2025 Dr. Guero Baker DO Attending physician Active Start: February 17, 2025 End: February 18, 2025 Dr. Guero Baker DO Emergency Departme nt Physician Active Start: February 17, 2025 End: February 18, 2025 Team Status: Inactive Member Role/Relationship Status Dates Viola Starkey BIODIESEL TECHNOLOGY MANAGER, BIODIESEL TECHNOLOGY MANAGER-C Primary care physician Active Start: February 27, 2025 End: February 27, 2025 Dr. Joseluis Maier DO Attending physician Active Start: February 27, 2025 End: February 27, 2025 Dr. Joseluis Maier , DO Emergency Departm ent Physician Active Start: February 27, 2025 End: February 27, 2025 Team Status: Inactive Member Role/Relationship Status Dates Viola Starkey NP, BIODIESEL TECHNOLOGY MANAGER-C Primary care physician Active Start: March 07, 2025 End: March 08, 2025 Dr. Guero Baker , Attending physician Active Start: March 07, 2025 End: March 08, 2025 Dr. Guero Baker , Emergency Departme nt Physician Active Start: March 07, 2025 End: March 08, 2025 Team Status: Inactive Member Role/Relationship Status Dates Viola Starkey BIODIESEL TECHNOLOGY MANAGER, BIODIESEL TECHNOLOGY MANAGER-C Primary care physician Active Start: December 29, 2024 End: December 29, 2024 Dr. Justin Cordero MD Attending physician Active Start: December 29, 2024 End: December 29, 2024 Dr. Justin Cordero MD Emergency Department Physician Ac tive Start: December 29, 2024 End: December 29, 2024 Team Status: Inactive Member Role/Relationship Status Dates Viola Starkey BIODIESEL TECHNOLOGY MANAGER, BIODIESEL TECHNOLOGY MANAGER-C Primary care physician Active Start: January 25, 2025 End: January 26, 2025 Dr. Guero Baker DO Attending physician Active Start: January 25, 2025 End: January 26, 2025 Dr. Guero Baker DO Emergency Department Physician A ctive Start: January 25, 2025 End: January 26, 2025 Team Status: Inactive Member Role/Relationship Status Dates Viola Starkey NP, BIODIESEL TECHNOLOGY MANAGER-C Primary care physician Active Start: February 17, 2025 End: February 18, 2025 Dr. Guero Baker DO Attending physician Active Start: February 17, 2025 End: February 18, 2025 Dr. Guero Baker , Emergency Departme nt Physician Active Start: February 17, 2025 End: February 18, 2025 Team Status: Inactive Member Role/Relationship Status Dates Viola Starkey NP, BIODIESEL TECHNOLOGY MANAGER-C Primary care physician Active Start: February 27, 2025 End: February 27, 2025 Dr. Joseluis Maier , Attending physician Active Start: February 27, 2025 End: February 27, 2025 Dr. Joseluis Maier , Emergency Departm ent Physician Active Start: February 27, 2025 End: February 27, 2025 Team Status: Inactive Member Role/Relationship Status Dates Viola Starkey BIODIESEL TECHNOLOGY MANAGER, BIODIESEL TECHNOLOGY MANAGER-C Primary care physician Active Start: March 07, 2025 End: March 08, 2025 Dr. Guero Baker DO Attending physician Active Start: March 07, 2025 End: March 08, 2025 Dr. Guero Baker DO Emergency Departme nt Physician Active Start: March 07, 2025 End: March 08, 2025 Team Status: Inactive Member Role/Relationship Status Dates Viola Starkey BIODIESEL TECHNOLOGY MANAGER, BIODIESEL TECHNOLOGY MANAGER-C Primary care physician Active Start: March 24, [...] Team Related Persons Name: AMANDA WELSH Name: [employer], [facility] Care Team Personnel Name: PHYSICIAN, NONE Position: Physician Member Role: Primary Care Physician Care Team Related Persons Name: AMANDA WELSH Name: [employer], [employer] Care Team Personnel Name: PHYSICIAN, NONE Position: Physician Member Role: Primary Care Physician Care Team Related Persons Name: AMANDA WELSH Name: [facility], LOL[facility] Care Team Personnel Name: PHYSICIAN, NONE Position: Physician Member Role: Primary Care Physician Care Team Related Persons Name: AMANDA WELSH Name: [employer], [employer] Care Team Personnel Name: PHYSICIAN, NONE [...] this informatio n is protected by the [facility] Confidentiality of Alcohol and Drug Abuse Patient Records regulations: The Federal rules restrict any use of the information to criminally investigate or prosecute any alcohol or drug abuse patient.[facility] the event this information is protected by the Federal Confidentiality of Alcohol and Drug Abuse Patient Records regulations: The Federal rules restrict any use of the information to criminally investigate or prosecute any alcohol or drug abuse patient.[facility] the event this information is protected by the Federal Confidentiality of Alcohol and Drug Abuse Patient Records regulations: The Federal rules restrict any use of the information to criminally investigate or prosecute any alcohol or drug abuse patient.[facility] the event this information is protected by the Federal Confidentiality of Alcohol and Drug Abuse Patient Records regulations: The Federal rules restrict any use of the information to criminally investigate or prosecute any alcohol or drug abuse patient.[facility] the event this information is protected by the Federal Confidentiality of Alcohol and Drug Abuse Patient Records regulations: The Federal rules restrict any use of the information to criminally investigate or prosecute any alcohol or drug abuse patient.[facility] Center[facility] the event this information is protected by the Federal Confidentiality of Alcohol and Drug Abuse Patient Records regulations: The Federal rules restrict any use of the information to criminally investigate or prosecute any alcohol or drug abuse patient.[facility] the event this information is protected by the Federal Confidentiality of Alcohol and Drug Abuse Patient Records regulations: The Federal rules restrict any use of the information to criminally investigate or prosecute any alcohol or drug abuse patient.[facility] Center[facility] the event this information is protected by the Federal Confidentiality of Alcohol and Drug Abuse Patient Records regulations: The Federal rules restrict any use of the information to criminally investigate or prosecute any alcohol or drug abuse patient.[facility] Reason for Visit (unrecogniz ed [...] By Contac t Referred To Contact [facility] / NEUROLOGY PAIN Diagnoses Left lower quadrant abdominal pain Procedures CONSULT TO [facility]) OFFICE/OUTPATIENT [facility] 60 MINUTES Suresh Griffiths, BUYER ASSISTANT.TANKER DRIVER [address] [address] [facility] [id number] [place] [address] Referral ID Status Reason Start Date Expiration Date V isits Requested Visits Authorized [id number] Closed PCP Requested Referral 07/21/2023 06/15/2024 1 [...] BE BASED ON THE PRIMARY CLINICAL RECORDS. [employer] provides no warranty or guarantee of the accuracy or completeness of information in this document.
--- NOTE | 2025-06-04 22:12 | EX.ED.DYSGE1 ---
HPI History of Present Illness Chief Complaint: Other, Pain/Inj Detail of Chief Complaint: Midline superior umbilical abdominal pain Informant: patient Onset/Context/Timing Onset: Weeks (Intermittent 2 weeks) Context: Sudden Onset Timing: Intermittent and Waxes and wanes Quality: Pain Location: Midline superior to the umbilicus Current Severity: Mild Maximum Severity: Moderate Worsened by: Movement Relieved by: Presently nothing Associated Symptoms Associated Symptoms: Nausea only Narrative Narrative: Patient is a 45-year-old male. He has history of recurrent ventral hernia. He has had prior surgery. He is scheduled to see surgeon at July 22. He denies constipation. He is still passing gas. He denies fever, chills night sweats. He denies cardiac or respiratory symptoms. Prior similar symptoms: Yes Recent Illness/Hospitalization: No PFSH PFS Medical History Recurrent incisional hernia with incarceration Abdominal pain Seroma after procedure Influenza due to influenza virus, type A, human Contact with or suspected exposure to other viral communicable disease Sprain of left foot Left ankle sprain Strain of left knee Contusion of left knee Seizures Home Medications ?Medication ?Instructions ?Recorded ?Last Taken ?Type oxycodone 5 mg tablet 5 mg PO Q8H PRN pain 5 days #15 05/08/25 Unknown Rx tabs oxycodone-acetaminophen 5 mg-325 1 tab PO Q6H PRN PRN Pain 3 days 06/04/25 Unknown Rx mg tablet #12 TABLETS Allergy/AdvReac Type Severity Reaction Status Date / Time adhesive tape Allergy Hives Verified 06/04/25 21:04 cephalexin monohydrate (From Allergy Anaphylaxis Verified 06/04/25 21:04 Keflex) levetiracetam (From Keppra) Allergy Hives Verified 06/04/25 21:04 morphine Allergy Other Verified 06/04/25 21:44 naproxen (From Naprosyn) Allergy Hives Verified 06/04/25 21:04 Family History Grandmother Arthritis Mother Arthritis Seizures Father Colon cancer Diabetes Brother Heart disease Surgical History H/O hernia repair History of appendectomy Social History household members: spouse Smoking Status: Current every day smoker tobacco type: cigarettes and e-cigarettes alcohol intake: never ROS ROS ED Constitutional Constitutional ED: Denies chills, fever(s), subjective, sweats or weight loss Cardiovascular Cardiovascular: Denies chest pain or palpitations Respiratory/Chest Respiratory/Chest: Denies cough, dyspnea or dyspnea on exertion Gastrointestinal Gastrointestinal: Reports abdominal pain and nausea; Denies constipation, diarrhea, melena or vomiting Genitourinary Genitourinary ED: Denies dysuria, hematuria or urinary frequency Musculoskeletal Musculoskeletal: Denies arthralgias, back pain or myalgias Integumentary Denies rash Hematologic/Lymphatic Hematologic/Lymphatic: Reports systems reviewed and no addt'l complaints, except as documented EXAM Physical Exam Const Vital Signs: 06/04/25 21:02 06/04/25 21:27 Temperature 99 F Temperature Source Oral Pulse Rate 108 H Respiratory Rate 18 Respiratory Effort Normal Non-Labored Respiratory Pattern Normal Blood Pressure 152/103 H Blood Pressure Mean 119 Pulse Ox 99 Oxygen Delivery Method Room Air Positive well nourished and well developed Constitutional Narrative: Blood pressure is elevated. Heart rate is elevated. BMI is 43.9. General Appearance ED: well developed; Negative for pallor HEENT Reports moist mucous membranes HEENT Narrative: Head is atraumatic and normocephalic. Eyes PERRL and EOMs intact bilaterally General Eye ED: Negative for scleral icterus Neck no lymphadenopathy, supple and no JVD Chest Wall inspection of chest normal Resp normal respiratory effort and clear to auscultation bilaterally Cardio regular rhythm, S1 normal heart sound, S2 normal heart sound and no murmurs Rate: tachycardic GI GI Narrative: Patient has a well-healed midline incision. Patient umbilicus has been removed. There is a bulge noted superior to where the umbilicus would be. There is a small defect. There is a hernia that was reduced. Bowel sounds are diminished. He has no guarding or peritoneal findings. There is no skin changes. Auscultation: hypoactive bowel sounds Palpation: soft and tender other (Midline superior to where the umbilicus should be) Extremity normal to inspection Neuro oriented x3 and CN's II-XII intact bilaterally Sensorium / Orientation: alert Psych mental status grossly normal Skin no rashes or lesions noted, no wounds and skin turgor normal General Skin Exam: Negative for jaundice or pallor MDM MDM MDM Narrative Medical decision making narrative: Patient with recurrent ventral hernia. It is not incarcerated. Since he is having intermittent pain with increasing episodes will obtain blood work to assess white count renal function anion gap. Since patient reports allergy to morphine but can take other opiates he was treated with oxycodone orally since he does not require surgical intervention and Zofran for his nausea. He was seen April 24 in the emergency department for abdominal pain. Impression was symptomatic ventral hernia. He had a CT at that time which revealed an unchanged moderate broad-based fat-containing periumbilical ventral abdominal wall hernia without evidence of incarceration or strangulation. Lab Data Attestation: I reviewed the patient's lab results. Lab results narrative: White count was slightly elevated with no shift. This is nonspecific. Basic metabolic panel reveals a slightly elevated BUN to creatinine ratio of 22:1. Glucose slight elevated 117. CO2 and anion gap are normal. Labs: Laboratory Results - last 24 hr 06/04/25 21:23 WBC 11.5 H RBC 4.98 Hgb 15.4 Hct 45.3 MCV 91.0 MCH 30.9 MCHC 34.0 RDW Std Deviation 40.3 RDW Coeff of Nory 12.1 Plt Count 310 MPV 9.1 Immature Gran % (Auto) 0.300 Neut % (Auto) 59.7 Lymph % (Auto) 30.3 [place] % (Auto) 6.2 Eos % (Auto) 2.6 Baso % (Auto) 0.9 Absolute Neuts (auto) 6.8 Absolute Lymphs (auto) 3.47 Nucleated RBC % 0 Sodium 138 Potassium 3.9 Chloride 104 Carbon Dioxide 21.1 Anion Gap 12 BUN 16 Creatinine 0.71 Estim Creat Clear Calc 204.66 Est GFR (MDRD) Non-Af 115 BUN/Creatinine Ratio 22.1 H Glucose 117 H Calcium 9.2 Treatment and Re-Evaluation :: Patient was reassessed. He was informed of his laboratory report/results. In light of recent visit CAT scan at that time with no change from prior CAT scan and no evidence of guarding or peritoneal findings in my opinion a repeat CAT scan is not needed. He was instructed to contact his surgeon at to have his appointment moved up from July 22. Discharge Plan Triage Chief Complaint: Other, Pain/Inj ED Provider: Bora Kirby Dx/Rx/DC Orders Clinical Impression: Recurrent incisional hernia, Abdominal pain, Elevated blood-pressure reading without diagnosis of hypertension, Adult BMI 40.0-44.9 kg/sq m Instructions: ED Hernia (Adult) Prescriptions: New oxycodone-acetaminophen 5-325 mg tablet 1 tab PO Q6H PRN PRN (Reason: Pain) 3 Days Qty: 12 0RF No Action oxycodone 5 mg tablet 5 mg PO Q8H PRN (Reason: pain) 5 Days Qty: 15 0RF Primary Care Provider: Viola Starkye NP Referrals: Viola Starkey NP, POSTAL TRANSPORTATION CLERK-C [Primary Care Provider, Family Practice] Print Language: Russian Disposition Disposition: Home, Self Care
[2025-06-04 22:16] LABS: Anion Gap 12 (5-15); BUN 16 mg/dL (4-19); BUN/Creat Ratio 22.1 RATIO (10-20); Calcium,Total 9.2 mg/dL (7.6-11.0); Carbon Dioxide 21.1 mmol/L (21.0-32.0); Chloride 104 mmol/L (98-108); Estimated Creatinine Clearance 204.66 ml/min (50-250); Glucose 117 mg/dL (70-99); Potassium 3.9 mmol/L (3.3-5.1)
[2025-06-04 22:47] VITALS: BP 133/85; PULSE 88; RESP 20; TEMP 36.8; O2SAT 98
== END 2025-06-04 22:52 | disposition home or self-care (01) ==
PROVIDERS: Emergency Provider Emergency Medicine; PCP Nurse Practitioner Family; Visit Provider Emergency Medicine
DX: K43.2 Incisional hernia without obstruction or gangrene (principal); R10.9 Unspecified abdominal pain; R11.0 Nausea; R03.0 Elevated blood-pressure reading, without diagnosis of hypertension; F17.210 Nicotine dependence, cigarettes, uncomplicated; Z90.49 Acquired absence of other specified parts of digestive tract; F17.290 Nicotine dependence, other tobacco product, uncomplicated
CPT/HCPCS: 80048; 85025; 96374; 96375; 99283; A4216; J2405